=== PATIENT | male | born 1965 | race Caucasian/White ===

== ENCOUNTER 2020-11-28 08:42 | Day surgery (SDC) | payer OTHER, SELFPAY ==
[2020-11-28] VITALS (7 sets, daily range): BP systolic 97–112; BP diastolic 74–81; PULSE 73–80; RESP 14–18; TEMP 36.1–36.6; O2SAT 100; BMI 17.4
--- NOTE | 2020-11-28 | IMM_PTH ---
PATIENT: JC DUNAWAY LOC: EN U#:[id number] AGE/SX: 55/M ROOM: RE11/28/[address]: Dr. Julio Hanson DO : 1965 BED: DIS: 11/28/2020 SPEC #: [id number] RECD: 11/29/20 13:19 STATUS: PRANAV REQ #: [id number] QI: 11/28/20 00:[address]: Julio Hanson DEPT: IMMUNOHISTOCHEMISTRY RECD BY: Nicky Zafar ENTERED: 11/29/20 13:22 SP TYPE: IMMUNO OTHR DR: Dr. Sage Tyalor DO Tissues: D - Sigmoid colon biopsy Procedures: MLH-1 (add) MSH6 (add) Anti-PMS2 (add) GONZALEZ-2 (add) KI-67 (add) P53 (add) MSH2 (initial) PHYSICIAN & INSTITUTION [place] [id number] SPECIMEN INFORMATION: Tissue Source: D ? Sigmoid mass biopsy Clinical Info: Ulcerative colitis, weight loss Specimen Number: [id number] CPT code: 46187, 57458 x6 METHODOLOGY: Deparaffinized sections of prefer/formalin-fixed tissue or PAP/DQ stained slides are incubated with monoclonal/polyclonal antibodies/oligonucleotide probes. Localization is made via biotin free immunoperoxidase method. Appropriate controls are performed and reacted as expected. Results on target cell population are indicated in the following table: RESULTS: ANTIBODY / CLONE RESULT Block D MLH-1 (M1) positive MSH2 (25D12) positive MSH6 (44) positive PMS2 (ERT2521) positive Ki-67 (30-9) positive (75%) P53 (DO-7) positive GNOZALEZ-2 (SP21) positive These tests were developed and their performance characteristics determined by [facility]. They may not have been cleared or approved by the U.S. Food and Drug Administration. The FDA has determined that such clearance or approval is not necessary. The above immunohistochemical/dualISH markers are ordered and reviewed by the Pathologist. INTERPRETATION: D. Sigmoid mass, biopsy: Adenocarcinoma. Result of Microsatellite Instability Study: Negative (no loss of mismatch protein; no microsatellite instability detected). AM:robbie 12/03/2020
[2020-11-28] MEDS: Lactated Ringers 1,000 ML 100 ML IV (09:25)
--- NOTE | 2020-11-28 09:45 | COLBX_PTH ---
PATIENT: JC DUNAWAY LOC: EN U#:[id number] AGE/SX: 55/M ROOM: RE11/28/[address]: Dr. Julio Hanson DO : 1965 BED: DIS: 11/28/2020 SPEC #: [id number] RECD: 11/28/20 11:32 STATUS: PRANAV JACQUELINE #: [id number] QI: 11/28/20 09:[address]: Julio Hanson DEPT: SURGICAL PATHOLOGY RECD BY: Radha Baca ENTERED: 11/28/20 12:22 SP TYPE: COLON BX OTHR DR: Dr. Sage Taylor DO Tissues: A - Duodenum, NOS B - Esophagus, NOS C - COLON BIOPSY D - Sigmoid colon biopsy E - Rectum, NOS Procedures: Special Stain Group II Surgery Specimen Level IV Alcian Blue/PAS (control) HEADER OPERATION: Colonoscopy, EGD ([facility]) PRE-OP DIAGNOSIS: Ulcerative colitis, weight loss TISSUE SUBMITTED: A ? Duodenum biopsy, B ? Distal esophagus biopsy, C ? Random colon biopsy, D ? Sigmoid mass biopsy, E ? Biopsy rectosigmoid thickening MICROSCOPIC DIAGNOSIS A. Duodenum, biopsy: Mild Samy?s gland hyperplasia. B. Distal esophagus, biopsy: Gastroesophageal junctional mucosa with chronic inflammation. No evidence of goblet cell metaplasia. See comment. C. Colon, random biopsy: Chronic active colitis pattern of injury with low and focal high-grade glandular dysplasia. D. Sigmoid colon mass, biopsy: Invasive adenocarcinoma. See comment. E. Rectosigmoid colon, biopsy: Tubular adenoma. AM:robbie 11/29/2020 COMMENT B. Alcian blue/PAS stain with matched control supports the above diagnosis. C. Immunohistochemistry ([id number]) for microsatellite instability (mismatch repair of protein) will be performed and the results will be reported separately. Case has been reviewed in consultation with Dr. Looney who concurs with the above diagnosis. IDC:SHANDA MICROSCOPIC DESCRIPTION Slides are reviewed. GROSS DESCRIPTION A - Received in fixative is one container labeled with the patient's name and designated duodenum biopsy. The specimen consists of multiple irregular fragments of light swanson soft tissue that in aggregate measure 1 x 0.5 x 0.1 cm. The specimen is totally submitted in one cassette. B - Received in fixative is one container labeled with the patient's name and designated distal esophagus biopsy. The specimen consists of two irregular fragments of light swanson soft tissue that in aggregate measure 0.8 x 0.3 x 0.1 cm. The specimen is totally submitted in one cassette. C - Received in fixative is one container labeled with the patient's name and designated random colon biopsy. The specimen consists of multiple irregular fragments of light swanson soft tissue that in aggregate measure 1 x 1 x 0.1 cm. The specimen is totally submitted in one cassette. D - Received in fixative is one container labeled with the patient's name and designated sigmoid mass biopsy. The specimen consists of multiple irregular fragments of light swanson soft tissue that in aggregate measure 2 x 0.6 x 0.1 cm. The specimen is totally submitted in one cassette. E - Received in fixative is one container labeled with the patient's name and designated rectosigmoid biopsy. The specimen consists of one irregular fragment of light swanson soft tissue that measures 0.3 x 0.3 x 0.1 cm. The specimen is totally submitted in one cassette. / AM:robbie 11/28/20 TC:0 CPT: 12964 x5, 80699
--- NOTE | 2020-11-28 09:53 | HP.PCM_ITS ---
History and Physical Date of Admission: 11/28/20 [facility] [id number] [place] [address] OFFICE VISITDate of Service: 11/21/20 MR#:[id number]:[id number]: JC DUNAWAYRep #:[id number]:[id number] Provider:Julio Hanson DOAge/Sex: 55/M [place] [place] Intake Vital Signs 11/21/20 11:17 Height 5 ft 6 in Weight: 109 lb 2 oz BMI 17.6 Intake Visit Reasons: UC Is patient in pain?: No Allergies No Known Allergies Allergy (Unverified 11/21/20 11:14) Medications folic acid 1 mg tablet 1 mg PO DAILY #30 tab 11/21/20 [Rx Confirmed 11/21/20] polyethylene glycol 3350 17 gram/dose oral powder 17 g PO Q10M #238 g 11/21/20 [Rx Confirmed 11/21/20] sulfasalazine 500 mg tablet 1 g PO Q6H tab 11/21/20 [History Confirmed 11/21/20] sulfasalazine 500 mg tablet,delayed release 1 g PO BID #60 tab 11/21/20 [Rx Confirmed 11/21/20] PFSH Medical History (Updated 11/21/20 @ 11:[address] Kim Friend, ) Ulcerative colitis Weight loss HPI HPI Details: JC DUNAWAY, is a 55 M who presents to the office today for Ulcerative diagnosis diagnosed around 1981. Takes Sulfasalazine 1gram BID and finds this helpful, ran out of the medication a couple weeks ago. Has been having periods of diarrhea with occasional episodes of small amounts of blood that he feels is triggered by stress. States the pills help and this will resolve spontaneously. Last colonoscopy early 1999 with no EGD performed. His is concerned because he has been having increasing weight loss. He has lost around 45 to 50 pounds over the last 6 months. He finds that when he does remember to take the sulfasalazine it helps his diarrhea. However he has been having more bleeding recently. He does complain of tenesmus and urgency. He denies any nausea. He denies any chest pain or shortness of breath. He does not take any other medicine and does not take folic acid. He has no extraintestinal manifest lesions of ulcerative colitis that he knows of such as no trouble seeing, no rash, arthritis or arthralgia and he has never been told that he had any liver function abnormalities. ROS Const Constitutional: No anorexia, fatigue, fever(s), weight change or sleep problems Eyes Eyes: No change in vision ENT ENT: No abnormal hearing, difficulty swallowing, mouth lesions, tongue swelling or throat swelling Resp Respiratory: No cough or shortness of breath Cardio Cardiology: No chest pain at rest, chest pain with exertion, shortness of breath or dyspnea on exertion Gastro GI: Positive for diarrhea; No difficulty swallowing Genitourinary Male: No difficulty urinating or burning urination Musc Musculoskeletal: No joint pain, joint swelling, muscle weakness or decreased muscle mass Skin Skin: No hair loss in leg, yellowing of the eye, itchy eyes, rash, skin ulcer or skin swelling Neuro Neurology: No abnormal hearing, abnormal movements, confusion, unsteady gait/balance or memory loss Psych Psychiatric: No anxiety, No confusion and No memory loss Endo Endocrine: No fatigue or weight change Aller/Imm Allergy/Immunologic: No itchy eyes, throat swelling or tongue swelling Rodrick/Lymp Hematologic/Lymphatic: No easy bleeding, easy bruising or enlarged lymph nodes Exam Const General: cooperative and comfortable Nutritional Appearance: average body habitus and well nourished [facility] Head: normal to inspection Ears: hearing grossly normal bilaterally Nose: external nose normal Face and sinus: normal facial exam Mouth: oral mucosae normal Throat: posterior oropharynx normal Eyes General: appearance normal, both eyes and all related structures Neck Neck: normal visual inspection Chest Chest palpation & inspection: normal inspection of the chest and normal palpation of entire chest wall Resp Effort & Inspection: normal respiratory effort Auscultation: Bilateral: Clear to Auscultation Cardio Palpation: normal PMI Rate: regular rate Rhythm: regular rhythm GI Inspection: normal to inspection Auscultation: normal bowel sounds Percussion: normal to percussion Palpation: no hepatosplenomegaly Skin General: no rashes or lesions noted Neuro General: patient alert Extrem General: normal to inspection Psych Affect: normal affect Assessment and Plan Assessment and Plan (1) Ulcerative colitis: Status: Acute Plan - Dr. Kim Friend, DO: He will undergo colonoscopy all way to the terminal ileum. We will do random biopsies in the terminal ileum and throughout the colon. I will continue his sulfasalazine 1 g twice a day. I will also add folic acid as sulfasalazine can deplete the folic acid. We will also check vitamin B12 levels as I suspect that may be low also due to his weight loss. At this time he is not having any neuropathy and is not having any problems with his gait. (2) Weight loss: Status: Acute Plan - Dr. Kim Friend, DO: He will also undergo upper endoscopy to see if there is anything abnormal in his stomach or proximal small bowel that would lead to him to lose weight. We will do biopsies in the duodenum for celiac sprue and will also see if he has any signs of inflammatory bowel disease in his proximal small bowel or stomach. Plan Details Other Medications: New: polyethylene glycol 3350 (Miralax) 17 grams PO Q10M 238 grams 0RF folic acid 1 mg PO DAILY 30 tabs 2RF sulfasalazine 1 g (2 x 500 mg) PO BID 60 tabs 0RF This is an updated H&P from when the patient was seen in the office. Nothing is changed since he was seen in office.
--- NOTE | 2020-11-28 10:45 | OP.EGD_ITS ---
Patient Name: Mohamud Malik Procedure Date: 11/28/2020 9:56 AM Date of : 1965 Age: 55 Procedure: Upper GI endoscopy Indications: Epigastric abdominal pain Providers: Julio Hanson DO Medicines: Propofol per Anesthesia Patient Profile: This is a 55 year old male. Refer to note in patient chart for documentation of history and physical. Patient has symptoms of chronic epigastric abdominal pain. The symptoms first began April. He is status post colonoscopy (normal) in the distant past. Complications: No immediate complications. Procedure: Pre-Anesthesia Assessment: - Prior to the procedure, a History and Physical was performed, and patient medications and allergies were reviewed. The patient is competent. The risks and benefits of the procedure and the sedation options and risks were discussed with the patient. All questions were answered and informed consent was obtained. Patient identification and proposed procedure were verified by the physician in the pre-procedure area. Mental Status Examination: alert and oriented. Airway Examination: normal oropharyngeal airway and neck mobility. Respiratory Examination: clear to auscultation. CV Examination: normal. Prophylactic Antibiotics: The patient does not require prophylactic antibiotics. Prior Anticoagulants: The patient has taken no previous anticoagulant or antiplatelet agents. ASA Grade Assessment: II - A patient with mild systemic disease. After reviewing the risks and benefits, the patient was deemed in satisfactory condition to undergo the procedure. The anesthesia plan was to use moderate sedation / analgesia (conscious sedation). Immediately prior to administration of medications, the patient was re-assessed for adequacy to receive sedatives. The heart rate, respiratory rate, oxygen saturations, blood pressure, adequacy of pulmonary ventilation, and response to care were monitored throughout the procedure. The physical status of the patient was re-assessed after the procedure. After obtaining informed consent, the endoscope was passed under direct vision. Throughout the procedure, the patient's blood pressure, pulse, and oxygen saturations were monitored continuously. The Endoscope was introduced through the mouth, and advanced to the second part of duodenum. The upper GI endoscopy was accomplished without difficulty. The patient tolerated the procedure well. Scope In: 10:02:22 AM Scope Out: 10:06:17 AM Total Procedure Duration Time 0 hours 3 minutes 55 seconds Findings: LA Grade A (one or more mucosal breaks less than 5 mm, not extending between tops of 2 mucosal folds) esophagitis with no bleeding was found. Biopsies were taken with a cold forceps for histology. Verification of patient identification for the specimen was done. Estimated blood loss was minimal. The entire examined stomach was normal. Biopsies were taken with a cold forceps for histology. Verification of patient identification for the specimen was done. Estimated blood loss was minimal. Scattered mild inflammation characterized by congestion (edema) was found in the first portion of the duodenum. Biopsies were taken with a cold forceps for histology. Verification of patient identification for the specimen was done. Estimated blood loss was minimal. Impression: - LA Grade A reflux esophagitis. Biopsied. - Normal stomach. Biopsied. - Duodenitis. Biopsied. - LA Grade A reflux esophagitis. Biopsied. - Normal stomach. - Duodenitis. Biopsied. Recommendation: - Discharge patient to home. - Resume previous diet. - Continue present medications. - Await pathology results. - Repeat upper endoscopy in 3 months for surveillance based on pathology results. - Return to GI office in 2 weeks. Procedure Code(s): --- Professional --- 43160, Esophagogastroduodenoscopy, flexible, transoral; with biopsy, single or multiple CPT copyright 2017 [employer]. All rights reserved. The codes documented in this report are preliminary and upon invoice coder review may be revised to meet current compliance requirements. Julio Hanson DO 11/28/2020 10:45:32 AM This report has been signed electronically. Number of Addenda: 1 Note Initiated On: 11/28/2020 9:56 AM Addendum Number: 1 Addendum Date: 10/31/2021 4:11:37 PM MAC was used instead of moderate sedation for this patient. Julio Hanson DO 10/31/2021 4:11:44 PM This report has been signed electronically.
--- NOTE | 2020-11-28 10:45 | OP.CCLET_ITS ---
10/31/2021 Sage Taylor Re : Upper GI endoscopy procedure for Mohamud Malik Dear Claudia This procedure was performed on Saturday, November 28, 2020. My impressions and recommendations are as follows: Impressions : - LA Grade A reflux esophagitis. Biopsied. - Normal stomach. Biopsied. - Duodenitis. Biopsied. - LA Grade A reflux esophagitis. Biopsied. - Normal stomach. - Duodenitis. Biopsied. Recommendations : - Discharge patient to home. - Resume previous diet. - Continue present medications. - Await pathology results. - Repeat upper endoscopy in 3 months for surveillance based on pathology results. - Return to GI office in 2 weeks. My findings are described in the full procedure note, which is enclosed. If I can be of further assistance, please feel free to contact me at . Sincerely, Julio Hanson, 11/28/2020 10:45:32 AM This report has been signed electronically.
--- NOTE | 2020-11-28 10:54 | OP.COLON_ITS ---
Patient Name: Mohamud Malik Procedure Date: 11/28/2020 10:06 AM Date of : 1965 Age: 55 Procedure: Colonoscopy Indications: Left-sided chronic ulcerative colitis Providers: Julio Hanson DO Medicines: Propofol per Anesthesia Patient Profile: This is a 55 year old male. Refer to note in patient chart for documentation of history and physical. Patient has symptoms of chronic epigastric abdominal pain. The symptoms first began April. He is status post colonoscopy (normal) in the distant past. He is status post segmental resection of the ascending colon in the distant past. Last Colonoscopy: 10 years ago. Complications: No immediate complications. Procedure: Pre-Anesthesia Assessment: - Prior to the procedure, a History and Physical was performed, and patient medications and allergies were reviewed. The patient is competent. The risks and benefits of the procedure and the sedation options and risks were discussed with the patient. All questions were answered and informed consent was obtained. Patient identification and proposed procedure were verified by the physician in the pre-procedure area. Mental Status Examination: alert and oriented. Airway Examination: normal oropharyngeal airway and neck mobility. Respiratory Examination: clear to auscultation. CV Examination: normal. Prophylactic Antibiotics: The patient does not require prophylactic antibiotics. Prior Anticoagulants: The patient has taken no previous anticoagulant or antiplatelet agents. ASA Grade Assessment: II - A patient with mild systemic disease. After reviewing the risks and benefits, the patient was deemed in satisfactory condition to undergo the procedure. The anesthesia plan was to use moderate sedation / analgesia (conscious sedation). Immediately prior to administration of medications, the patient was re-assessed for adequacy to receive sedatives. The heart rate, respiratory rate, oxygen saturations, blood pressure, adequacy of pulmonary ventilation, and response to care were monitored throughout the procedure. The physical status of the patient was re-assessed after the procedure. - Prior to the procedure, a History and Physical was performed, and patient medications and allergies were reviewed. The patient is competent. The risks and benefits of the procedure and the sedation options and risks were discussed with the patient. All questions were answered and informed consent was obtained. Patient identification and proposed procedure were verified by the physician in the pre-procedure area. Mental Status Examination: alert and oriented. Airway Examination: normal oropharyngeal airway and neck mobility. Respiratory Examination: clear to auscultation. CV Examination: normal. Prophylactic Antibiotics: The patient does not require prophylactic antibiotics. Prior Anticoagulants: The patient has taken no previous anticoagulant or antiplatelet agents. ASA Grade Assessment: II - A patient with mild systemic disease. After reviewing the risks and benefits, the patient was deemed in satisfactory condition to undergo the procedure. The anesthesia plan was to use moderate sedation / analgesia (conscious sedation). Immediately prior to administration of medications, the patient was re-assessed for adequacy to receive sedatives. The heart rate, respiratory rate, oxygen saturations, blood pressure, adequacy of pulmonary ventilation, and response to care were monitored throughout the procedure. The physical status of the patient was re-assessed after the procedure. After I obtained informed consent, the scope was passed under direct vision. Throughout the procedure, the patient's blood pressure, pulse, and oxygen saturations were monitored continuously. The pediatric colonoscope was introduced through the anus and advanced to the ileocolonic anastomosis. The colonoscopy was performed without difficulty. The patient tolerated the procedure well. The quality of the bowel preparation was good. Scope In: 10:09:27 AM Scope Withdrawal Time 0 hours 9 minutes 32 seconds Scope Out: 10:30:20 AM Total Procedure Duration Time 0 hours 20 minutes 53 seconds Findings: The perianal and digital rectal examinations were normal. Inflammation characterized by erosions, erythema, linear erosions, loss of vascularity, mucus, scarring and deep ulcerations was found in a continuous and circumferential pattern from the anus to the hepatic flexure. No sites were spared. This was severe, and when compared to previous examinations, the findings are worsened. Biopsies were taken with a cold forceps for histology. Verification of patient identification for the specimen was done. Estimated blood loss was minimal. A frond-like/villous non-obstructing large mass was found in the distal descending colon. The mass was partially circumferential (involving two-thirds of the lumen circumference). The mass measured one cm in length. No bleeding was present. This was biopsied with a cold forceps for histology. Area was tattooed with an injection of 5 mL of Pippa ink. The terminal ileum appeared normal. Impression: - Pancolitis ulcerative colitis. Inflammation was found from the anus to the hepatic flexure. This was severe, worsened compared to previous examinations. Biopsied. - Rule out malignancy, tumor in the distal descending colon. Biopsied. Tattooed. - The examined portion of the ileum was normal. - Diffuse severe inflammation was found in the rectum secondary to pancolitis. Biopsied. - Ileal anastomosis visualized. Recommendation: - Discharge patient to home. - Resume previous diet. - Return to my office in 2 weeks. - Continue present medications. - Repeat colonoscopy in 3 months for surveillance based on pathology results. Procedure Code(s): --- Professional --- 07974, Colonoscopy, flexible; with biopsy, single or multiple 50484, Colonoscopy, flexible; with directed submucosal injection(s), any substance CPT copyright 2017 [employer]. All rights reserved. The codes documented in this report are preliminary and upon artist consultant review may be revised to meet current compliance requirements. Julio Hanson DO 11/28/2020 10:53:39 AM This report has been signed electronically. Number of Addenda: 1 Note Initiated On: 11/28/2020 10:06 AM Addendum Number: 1 Addendum Date: 10/31/2021 4:11:55 PM MAC was used instead of moderate sedation for this patient. Julio Hanson DO 10/31/2021 4:12:00 PM This report has been signed electronically.
--- NOTE | 2020-11-28 10:54 | OP.CCLET_ITS ---
10/31/2021 Sage Taylor Re : Colonoscopy procedure for Mohamud Malik Dear Claudia This procedure was performed on Saturday, November 28, 2020. My impressions and recommendations are as follows: Impressions : - Pancolitis ulcerative colitis. Inflammation was found from the anus to the hepatic flexure. This was severe, worsened compared to previous examinations. Biopsied. - Rule out malignancy, tumor in the distal descending colon. Biopsied. Tattooed. - The examined portion of the ileum was normal. - Diffuse severe inflammation was found in the rectum secondary to pancolitis. Biopsied. - Ileal anastomosis visualized. Recommendations : - Discharge patient to home. - Resume previous diet. - Return to my office in 2 weeks. - Continue present medications. - Repeat colonoscopy in 3 months for surveillance based on pathology results. My findings are described in the full procedure note, which is enclosed. If I can be of further assistance, please feel free to contact me at . Sincerely, Julio Hanson, 11/28/2020 10:53:39 AM This report has been signed electronically.
== END 2020-11-28 11:27 | disposition home or self-care (01) ==
LOC: EN 08:55 → AC 09:25
PROVIDERS: PCP Family Medicine; Referring Provider Family Medicine; Visit Provider Internal Medicine Gastroenterology
PROC: 0DJD8ZZ Inspection of Lower Intestinal Tract, Via Natural or Artificial Opening Endoscopic (ICD-10-PCS; CPT 45378; principal; 2020-11-28 09:40)
DX: K21.00 Gastro-esophageal reflux disease with esophagitis, without bleeding (principal); K51.00 Ulcerative (chronic) pancolitis without complications; C18.7 Malignant neoplasm of sigmoid colon; D12.7 Benign neoplasm of rectosigmoid junction; R63.4 Abnormal weight loss
CPT/HCPCS: 43239; 45380; 45381; 88305; 88313; 88341; 88342; J7120; A4648; J2405

== ENCOUNTER → 2020-12-07 10:56 | Outpatient (CLI) | payer OTHER, SELFPAY ==
[2020-12-07 11:35] LABS: Absolute Lymphocyte Count 0.89 X10^3/uL (0.83-4.51); Absolute Neutrophil Count 7.7 X10^3/uL (2.0-7.7); Basophil# 0.08 X10^3/uL; Basophil% 0.8 % (0-1); Eosinophils% 1.9 % (0-5); Hematocrit 34.5 % (40-54); Lymphocyte # 0.89 X10^3/ul (0.83-4.51); Lymphocyte % 8.6 % (19-41); Mean Corp Hgb Conc 31.9 g/dL (32-36); Mean Corpuscular Hgb 27.4 pg (27.0-32.0); Mean Platelet Vol. 9.5 fl (6.2-12.0); Monocyte# 1.35 X10^3/uL; Monocyte% 13.1 % (0-10); NRBC Flagged by Analyzer 0 % (0-5); Neutrophil # 7.74 X10^3/uL (2.7-7.7); Platelet Count 682 K/mm3 (150-450); RBC Distribution Width CV 14.8 % (11.6-14.6); RBC Distribution Width SD 46.5 fl (35.1-43.9); Red Blood Count 4.01 M/mm3 (4.6-6.2); White Blood Count 10.3 K/mm3 (4.4-11.0)
[2020-12-07 12:09] LABS: ALB/GLOB Ratio 0.4 RATIO (0.9-2.4); AST(SGOT) 54 U/L (15-37); Alanine Aminotransfer ALT/SGPT 38 U/L (16-61); Albumin, Serum 2.2 g/dL (3.2-5.0); Alkaline Phosphatase 581 U/L (45-117); Anion Gap 6 (5-15); BUN 11 mg/dL (7-18); BUN/Creat Ratio 14.3 RATIO (10-20); Calcium,Total 8.4 mg/dL (8.5-10.1); Chloride 104 mmol/L (98-107); Creatinine, Serum 0.77 mg/dL (0.70-1.30); EST Glomerular Filtration Rate 111 mL/min (>60); Est Glom Filt Rate - Afr Amer 134 mL/min (>60); Globulin 5.6 g/dL (2.2-4.2); Glucose 63 mg/dL (74-106); Potassium 3.9 mmol/L (3.5-5.1); Protein, Total 7.8 g/dL (6.4-8.2); Sodium Level 135 mmol/L (136-145)
[2020-12-08 11:31] LABS: Carcinoembryonic Antigen 2.4 ng/mL (0.0-4.7)
== END ==
PROVIDERS: PCP Family Medicine; Referring Provider Internal Medicine Gastroenterology; Visit Provider Internal Medicine Gastroenterology
DX: C18.9 Malignant neoplasm of colon, unspecified (principal); K51.90 Ulcerative colitis, unspecified, without complications
CPT/HCPCS: 36415; 80053; 82378; 85025

== ENCOUNTER → 2020-12-28 07:25 | Outpatient (CLI) | payer OTHER, SELFPAY ==
--- NOTE | 2020-12-28 07:31 | CT_ITS ---
STUDY: CT CHEST, ABDOMEN T PELVIS WITH CONTRAST REASON FOR EXAM: Male, 55 years old. Newly diagnosed colon cancer. Weight loss. History of ulcerative colitis. RADIATION DOSAGE (If Supplied By Facility): CTDIvol = ( 7.66 ) mGy, DLP = ( 499.71 ) mGycm TECHNIQUE: Transaxial imaging was performed following intravenous administration of Oral and amp; IV Readi-CAT and amp; 100mL Isovue-300. Individualized dose optimization techniques were used for this CT. COMPARISON: No relevant priors. FINDINGS: CHEST Mild degree of scarring at the right lung apex. Mild degree of emphysematous changes. There is no demonstrated pleural abnormality. Normal heart and pericardium. Normal mediastinum. Calcified right hilar lymph nodes. Normal unenhanced pulmonary arteries. Normal aorta arch and descending thoracic aorta. There are mild degenerative changes of the thoracic spine. ABDOMEN Normal liver. Normal gallbladder and extrahepatic biliary system. Normal spleen. Normal pancreas. Normal bilateral adrenal glands. Normal right kidney. Normal left kidney. There is a small hiatal hernia. Normal small intestine. There is diffuse circumferential wall thickening of the colon in keeping with the patient''s history of ulcerative colitis. Inflammatory changes are seen in the rectosigmoid colon. There is evidence of circumferential wall thickening with evidence of a mass in the region of the cecum. This extends into the proximal portion of the descending colon. Patient is known to have a neoplasm at that site. The appendix is visualized and appears normal. Normal abdominal aorta. Normal inferior vena cava. Normal retroperitoneum. Normal abdominal wall. There are mild degenerative changes of the visualized lumbar spine. There is a 9 mm lucency in the anterior left aspect of the L2 vertebrae. Mild sclerotic margin is seen most likely representing an incidental finding. PELVIS Normal urinary bladder. Normal visualized pelvic arteries. Normal abdominal wall. The patient is status post intramedullary xena fixation of the proximal left femur. CT/CT Chest, Abd, Pel w/Contrast IMPRESSION: Diffuse circumferential wall thickening of the colon with the patient''s history of ulcerative colitis. Masslike lesion in the cecum and proximal ascending colon. The patient is known to have a neoplastic process at that site. Electronically Signed: Bk Berkowitz MD at 12:55 EDT , Service support ,
== END ==
PROVIDERS: PCP Family Medicine; Referring Provider Internal Medicine Gastroenterology; Visit Provider Internal Medicine Gastroenterology
DX: C18.7 Malignant neoplasm of sigmoid colon (principal)
CPT/HCPCS: 71260; 74177; Q9967

== ENCOUNTER → 2021-02-08 09:03 | Outpatient (CLI) | payer OTHER, SELFPAY | PROVIDERS: PCP Family Medicine; Referring Provider Colon & Rectal Surgery; Visit Provider Colon & Rectal Surgery | DX: C18.7 Malignant neoplasm of sigmoid colon (principal) | CPT/HCPCS: 87635; C9803; U0005; U0003 ==

== ENCOUNTER 2021-02-18 07:08 | Emergency (ER) | payer OTHER, SELFPAY ==
[2021-02-18 07:09] VITALS: BP 94/55; PULSE 101; RESP 16; TEMP 36.9; O2SAT 99; BMI 17.3
--- NOTE | 2021-02-18 07:19 | CT_ITS ---
STUDY: CT ABDOMEN AND PELVIS WITH CONTRAST REASON FOR EXAM: Male, 55 years old. Abdominal pain -- IV PO Contrast. Lower abdominal pain with nausea. Prior ileostomy dated 02/12/2021. History of ulcerative colitis and colon cancer. RADIATION DOSAGE (If Supplied By Facility): CTDIvol = ( 8.02 ) mGy, DLP = ( 286.19 ) mGycm TECHNIQUE: Transaxial images were obtained from the dome of the diaphragm to the symphysis pubis without oral contrast. Oral and amp; IV Gastrografin and amp; 100mL Isovue-370 was administered. Sagittal and coronal images were reconstructed. Individualized dose optimization techniques were used for this CT. COMPARISON: None. FINDINGS: There is a mild degree of increased markings at the lung bases suggestive of bibasilar The visualized portions of the heart are within normal limits. Mild degree of central intrahepatic biliary ductal dilatation. The gallbladder is distended. No gallstones are seen. Normal spleen. Normal pancreas. Normal bilateral adrenal glands. Normal right kidney. Normal left kidney. Normal visualized stomach. Mildly dilated small bowel loops. An ileostomy is seen in the anterior right lower quadrant. Subcutaneous emphysema is seen overlying the right anterior and lateral abdominal wall from the mid level down to the region of the pelvis. This most likely is postsurgical in nature. Surgical anastomosis seen in the region of the rectum. A small amount of fluid is also seen in the right paracolic gutter. Fluid is seen in the pelvis. The patient is status post colectomy. Normal abdominal aorta. Normal inferior vena cava. Normal retroperitoneum. Normal urinary bladder. Normal abdominal wall. Prior ORIF of the proximal left femur. CT/Abdomen/Pelvis WITH Contrast IMPRESSION: Status post colectomy and ileostomy in the right lower quadrant. Subcutaneous emphysema is seen along the anterior abdominal wall at the site of the surgery extending down to the region of the lower abdomen and pelvis. Mild degree of intrahepatic biliary ductal dilatation. Distended gallbladder. Ascites. Surgical anastomosis is seen in the lower pelvis at the site of the rectum. Electronically Signed: Bk Berkowitz MD at 9:49 EST , Service support ,
--- NOTE | 2021-02-18 07:20 | ED.VIS.GI ---
HPI HPI - GI History of Present Illness Chief Complaint: Abd Pain Narrative Narrative: 55-year-old male presenting with abdominal pain. Patient has a history of ulcerative colitis, anemia, colon cancer and recently underwent surgery at [facility] for a total colectomy due to the above-noted problems. Patient states this was on Thursday of last week. Patient states that he had been eating and drinking okay and he has had ostomy output up until yesterday when he did not have a lot of output. He states he did not eat or drink much yesterday. His ostomy output has increased since last night. Patient states he is experiencing pain around the ostomy site. He states that he has Tylenol, ibuprofen, oxycodone at home and tried taking oxycodone but vomited this up because he was nauseous. He states he has nausea medicine at home but he is not recall the last time he tried taking it. Patient has not had a fever. He has not seen jesse bloody stools in his colostomy bag. PFSH PFS Medical History History of colon cancer Hx of fracture of left hip Injury of head and neck Non-smoker Ulcerative colitis Weight loss Home Medications folic acid 1 mg tablet 1 mg PO DAILY #30 tab 11/21/20 [Rx Last Taken Unknown] sulfasalazine 500 mg tablet 0.5 g PO BID #60 tab 12/12/20 [Rx Last Taken Unknown] ondansetron 4 mg PO Q8H PRN PRN #14 tab 02/18/21 [Rx Last Taken Unknown] Allergy/AdvReac Type Severity Reaction Status Date / Time No Known Allergies Allergy Verified 12/31/20 11:13 Surgical History History of colon resection History of ileostomy Hx of colonoscopy Social History household members: spouse Smoking Status: Never smoker second hand exposure: No details: very rarely substance use type: does not use cruz/mormonism: [employer] seatbelt use: always do you feel safe at home: Yes ROS ROS ED Constitutional Constitutional ED: Denies chills or fever(s) ENT ENT ED: Denies rhinorrhea or sore throat Cardiovascular Cardiovascular: Denies chest pain or palpitations Respiratory/Chest Respiratory/Chest: Denies cough or dyspnea Gastrointestinal Gastrointestinal: Reports abdominal pain, nausea and vomiting Genitourinary Genitourinary ED: Denies dysuria or hematuria Musculoskeletal Musculoskeletal: Denies arthralgias or myalgias Integumentary Denies rash Neurologic Neurologic: Denies headache(s) or paresthesias Psychiatric Psychiatric: Denies anxiety or depression EXAM Physical Exam Const Vital Signs: 02/18/21 07:09 02/18/21 11:12 Temperature 98.4 F 98.3 F Temperature Source Temporal Pulse Rate 101 H 86 Respiratory Rate 16 16 Blood Pressure 94/55 L 136/86 H Blood Pressure Mean 68 Pulse Ox 99 98 Oxygen Delivery Method Room Air Positive cachectic General Appearance ED: cachectic and NAD Nutritional Appearance: cachectic HEENT Reports dry mucous membranes normocephalic and atraumatic Mouth ED: Yes dry mucous membranes Mouth: dry mucous membranes Eyes PERRL and EOMs intact bilaterally General Eye ED: Negative for pale conjunctiva or scleral icterus Neck No no lymphadenopathy and No supple Resp normal respiratory effort and clear to auscultation bilaterally Cardio regular rate and regular rhythm GI GI Narrative: Tenderness to palpation around ostomy site to the left. Abdomen is nonperitoneal. There is also some epigastric discomfort on examination. Ostomy bag is full of greenish liquid. Neuro Sensorium / Orientation: alert, oriented to person, oriented to place and oriented to time Psych mental status grossly normal and thought process normal Skin Rashes: no rashes MDM MDM MDM Narrative Medical decision making narrative: Patient resting be evaluated postoperatively due to abdominal pain status post total colectomy. I did evaluate the patient with lab work and his white count is 13.7 which is what it was few days ago on an outpatient basis and this has not changed. Hemoglobin was 9.2 at that time as well and it is again the same here. Renal function and electrolytes are normal with slight prerenal azotemia. Patient initially typed and screened due to his history of anemia and GI bleed but I do not believe he needs to be emergently transfused. Patient pain was treated with morphine and Zofran. I obtained a CT of the abdomen pelvis with p.o. and IV contrast which did not show anything acute. The radiologist notes postsurgical changes only. Patient feeling improved. I was able to determine he was not prescribed any nausea medicine and I will prescribe this. Is counseled to follow-up with his surgeon as needed. Impression: 1. Postop abdominal pain status post total colectomy 2. History of GI bleed 3. Nausea/vomiting Lab Data Attestation: I reviewed the patient's lab results. Labs: Laboratory Results - last 24 hr 02/18/21 02/18/21 02/18/21 07:16 07:16 07:35 WBC 13.7 H RBC 3.64 L Hgb 9.2 L Hct 29.3 L MCV 80.5 MCH 25.3 L MCHC 31.4 L RDW Std Deviation 52.3 H RDW Coeff of Beatrice 18.2 H Plt Count 625 H MPV 10.1 Immature Gran % (Auto) 0.600 Neut % (Auto) 92.5 H Lymph % (Auto) 1.6 L [place] % (Auto) 5.0 Eos % (Auto) 0.0 Baso % (Auto) 0.3 Absolute Neuts (auto) 12.6 H Absolute Lymphs (auto) 0.22 L Nucleated RBC % 0 Differential Comment COMMENT Sodium 139 Potassium 4.8 Chloride 106 Carbon Dioxide 28.0 Anion Gap 5 BUN 23 H Creatinine 0.92 Estim Creat Clear Calc 61.76 Est GFR (MDRD) Af Amer 109 Est GFR (MDRD) Non-Af 90 BUN/Creatinine Ratio 25.0 H Glucose 118 H Calcium 8.4 L Total Bilirubin 0.90 AST 39 H ALT 55 Alkaline Phosphatase 723 H Total Protein 6.6 Albumin 2.0 L Globulin 4.6 H Albumin/Globulin Ratio 0.4 L Lipase 70 L Blood Type O POSITIVE Antibody Screen NEGATIVE Radiography Diagnostic Testing: Clinical Impression(s) from Imaging Studies Abdomen/Pelvis CT 02/18/21 07:19 IMPRESSION: Status post colectomy and ileostomy in the right lower quadrant. Subcutaneous emphysema is seen along the anterior abdominal wall at the site of the surgery extending down to the region of the lower abdomen and pelvis. Mild degree of intrahepatic biliary ductal dilatation. Distended gallbladder. Ascites. Surgical anastomosis is seen in the lower pelvis at the site of the rectum. Electronically Signed: Bk Berkowitz MD at 9:49 EST , Service support , Discharge Plan Triage Chief Complaint: Abd Pain ED Provider: Jabier De Jesus Dx/Rx/DC Orders Instructions: ED Post Op Wound Check, Pain Prescriptions: New ondansetron 4 mg tablet,disintegrating 4 mg PO Q8H PRN PRN (Reason: Nausea) Qty: 14 RF: 0 No Action folic acid 1 mg tablet 1 mg PO DAILY Qty: 30 RF: 2 sulfasalazine 500 mg tablet 0.5 g PO BID Qty: 60 RF: 1 Primary Care Provider: Sage Taylor Referrals: Sage Taylor DO [Primary Care Provider] - Disposition Disposition: Home, Self Care Discharge Date/Time: 02/18/21 11:18
[2021-02-18 07:27] LABS: Absolute Lymphocyte Count 0.22 X10^3/uL (0.83-4.51); Absolute Neutrophil Count 12.6 X10^3/uL (2.0-7.7); Basophil# 0.04 X10^3/uL; Basophil% 0.3 % (0-1); Hematocrit 29.3 % (40-54); Hemoglobin 9.2 g/dL (13.0-16.5); Lymphocyte # 0.22 X10^3/ul (0.83-4.51); Lymphocyte % 1.6 % (19-41); Mean Corp Hgb Conc 31.4 g/dL (32-36); Mean Corpuscular Hgb 25.3 pg (27.0-32.0); Mean Corpuscular Volume 80.5 fL (80-94); Mean Platelet Vol. 10.1 fl (6.2-12.0); Monocyte# 0.68 X10^3/uL; NRBC Flagged by Analyzer 0 % (0-5); Neutrophil # 12.63 X10^3/uL (2.7-7.7); Neutrophil % 92.5 % (47-70); POSITIVE DIFFERENTIAL YES; Platelet Count 625 K/mm3 (150-450); RBC Distribution Width CV 18.2 % (11.6-14.6); RBC Distribution Width SD 52.3 fl (35.1-43.9); Red Blood Count 3.64 M/mm3 (4.6-6.2); White Blood Count 13.7 K/mm3 (4.4-11.0)
[2021-02-18] MEDS: Morphine 4 MG/ML Syringe IV (07:27)
[2021-02-18] MEDS: Ondansetron 4 MG/2 ML Vial IV (07:27)
[2021-02-18] MEDS: 0.9% Normal Saline 1,000 ML 1000 ML IV (07:27)
[2021-02-18 07:31] LABS: Differential Indicated SCAN CRITERIA MET
[2021-02-18 07:43] LABS: ALB/GLOB Ratio 0.4 RATIO (0.9-2.4); AST(SGOT) 39 U/L (15-37); Alanine Aminotransfer ALT/SGPT 55 U/L (16-61); Alkaline Phosphatase 723 U/L (45-117); Anion Gap 5 (5-15); BUN 23 mg/dL (7-18); Calcium,Total 8.4 mg/dL (8.5-10.1); Chloride 106 mmol/L (98-107); Creatinine, Serum 0.92 mg/dL (0.70-1.30); EST Glomerular Filtration Rate 90 mL/min (>60); Est Glom Filt Rate - Afr Amer 109 mL/min (>60); Estimated Creatinine Clearance 61.76 ml/min; Globulin 4.6 g/dL (2.2-4.2); Glucose 118 mg/dL (74-106); Lipase 70 U/L (73-393); Potassium 4.8 mmol/L (3.5-5.1); Protein, Total 6.6 g/dL (6.4-8.2); Sodium Level 139 mmol/L (136-145)
[2021-02-18 11:12] VITALS: BP 136/86; PULSE 86; RESP 16; TEMP 36.8; O2SAT 98
== END 2021-02-18 11:18 | disposition home or self-care (01) ==
PROVIDERS: Emergency Provider Student in an Organized Health Care Education/Training Program; PCP Family Medicine
DX: G89.18 Other acute postprocedural pain (principal); R18.8 Other ascites; Z90.49 Acquired absence of other specified parts of digestive tract; Z93.2 Ileostomy status; Z85.038 Personal history of other malignant neoplasm of large intestine; R11.2 Nausea with vomiting, unspecified; R10.9 Unspecified abdominal pain
CPT/HCPCS: 36415; 74177; 80053; 83690; 85025; 86850; 86900; 86901; 96361; 96374; 96375; 99285; J7030; Q9967; A4216; J2405

== ENCOUNTER 2021-05-31 09:06 | Outpatient (CLI) | payer OTHER, SELFPAY | END 2021-05-31 23:59 | disposition home or self-care (01) | LOC: PSN 09:07 | PROVIDERS: PCP Family Medicine; Referring Provider Colon & Rectal Surgery; Visit Provider Colon & Rectal Surgery | DX: Z01.818 Encounter for other preprocedural examination (principal); Z20.822 Contact with and (suspected) exposure to COVID-19 | CPT/HCPCS: 87635; C9803; U0003; U0005 ==

== ENCOUNTER 2021-07-02 13:06 | Outpatient (RCR) | payer OTHER, SELFPAY ==
--- NOTE | 2021-07-02 17:24 | EX.NTREPO ---
Medical Nutrition Therapy - History Nutrition Services has been consulted to:: Manage nutrient details of diet order, Conduct nutrition education, Conduct nutrition counseling Current diet/nutrition support order:: No issues with chewing / swallowing reported - Anthropometric Measurements Height:: 5 ft 6 in Weight:: 48.716 kg Body Mass Index (BMI):: 17.3 - Assessment Food and Nutrient Intake: Eating frequent small meals as tolerated - Nutrition Diagnosis: Intake Problem Inadequate Oral Intake Intake Problem - Etiology: Disease management of Colon cancer & poor pro/calorie intake Intake Problem - Signs/Symptoms: BMI: 16.8. WT: 107.4. Moderate subcutaneous fat loss in orbital area, protrusion of clavicles. 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 WT: 107.4. Moderate subcutaneous fat loss in orbital area, protrusion of clavicles. 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 Generalized loss of energy / weakness reported Status: Active Problem - Protein Calorie Malnutrition Evidence of Malnutrition Exists: Yes Moderate Protein Calorie Malnutrition: Chronic Unspecified Protein Calorie Malnutrition: Moderate pro/bryan - Nutrition Intervention Nutrition Prescription: Estimated Calorie Needs: 1500 - 1750 / day to increase weight (RMR x 1.2 + 250). Estimated Protein Needs: 50 - 75 gm / day (1 - 1.5 gm / kg). Estimated Fluid Needs: 1500 - 1800 mL / day (30 mL / kg) - Food / Nutrient Delivery Interventions Summary of nutrition intervention:: Nutrition education provided, Nutrition counseling provided, Adjust diet order, Provide oral nutrition supplement Nutrition support ordered as / adjusted to:: Low fiber, low fat, Meal Plan, limiting GI stimulants. 5- 6 small meals / day 3-4 hours apart. 1 to 2 - 8 oz containers of High Protein / High Calorie Nutrition Supplement (exp: Ensure Complete) Nutrition Counseling: Recommended High Calorie / High Protien Oral Nutrition Supplement (350 calories / 30 gm protein / 8 oz) - 1 to 2 / day Coordination of Nutrition Care: F/U x 1 month or as needed - MNT Monitoring Active Nutrition Patient: Yes
[2021-07-02 17:28] VITALS: BMI 17.3
== END 2021-07-30 23:59 ==
LOC: NS 13:06
PROVIDERS: PCP Family Medicine; Referring Provider Internal Medicine Hematology & Oncology; Visit Provider Internal Medicine Hematology & Oncology
DX: Z71.3 Dietary counseling and surveillance (principal); R63.4 Abnormal weight loss; C18.7 Malignant neoplasm of sigmoid colon; Z68.1 Body mass index [BMI] 19.9 or less, adult
CPT/HCPCS: 97802

== ENCOUNTER → 2022-09-30 | Outpatient (CLI) | payer OTHER, SELFPAY ==
--- NOTE | 2022-09-30 18:05 | CT_ITS ---
STUDY: CT CHEST, ABDOMEN T PELVIS WITH CONTRAST REASON FOR EXAM: Male, 57 years old. Colon cancer surveillance; elevated LFTs. History of ulcerative colitis. RADIATION DOSAGE (If Supplied By Facility): CTDIvol = ( 9.54 ) mGy, DLP = ( 394.51 ) mGy TECHNIQUE: Transaxial imaging was performed following intravenous administration of IV 100mL Isovue-370. Multiplanar coronal and sagittal images were reformatted. Individualized dose optimization techniques were used for this CT. COMPARISON: Comparison is made with prior CT scan of the chest dated December 28, [address] scan of the abdomen and pelvis dated February 19, 2020. FINDINGS: CHEST Stable scarring at the lung apices likely worse on the right side. There is no demonstrated pleural abnormality. Normal heart and pericardium. No coronary artery calcification. Normal mediastinum. Normal hilar regions. Normal unenhanced pulmonary arteries. Normal aorta arch and descending thoracic aorta. There are degenerative changes of the thoracic spine. There is no demonstrated abnormality of the visualized upper abdomen. ABDOMEN The visualized lung bases are unremarkable. The visualized portions of the heart are within normal limits. Normal liver. Normal gallbladder and extrahepatic biliary system. Normal spleen. Normal pancreas. Normal bilateral adrenal glands. Normal right kidney. Normal left kidney. Normal visualized stomach. The previously seen right-sided ileostomy is not visualized at this time. The patient is status post ileal rectal anastomosis. There is non-visualization of the appendix. There is scattered atherosclerotic calcification of the abdominal aorta, without a demonstrated aneurysm. Normal inferior vena cava. Normal retroperitoneum. Normal abdominal wall. There are degenerative changes of the visualized lumbar spine. PELVIS Normal urinary bladder. Normal visualized small intestine. Normal visualized colon. There is no pelvic fluid. There is no pelvic lymphadenopathy or mass lesion. Normal visualized pelvic arteries. CT/CT Chest, Abd, Pel w/Contrast IMPRESSION: Status post ileorectal anastomosis. The previously seen right lower quadrant ileostomy is not seen at this time. Electronically Signed: Bk Berkowitz MD at 10:08 EDT ,
== END | disposition home or self-care (01) ==
LOC: CT 18:02
PROVIDERS: PCP Family Medicine; Visit Provider Nurse Practitioner Family
DX: C18.7 Malignant neoplasm of sigmoid colon (principal); R79.89 Other specified abnormal findings of blood chemistry
CPT/HCPCS: 71260; 74177; Q9967

== ENCOUNTER → 2023-03-31 | Outpatient (CLI) | payer OTHER, SELFPAY ==
--- OUTSIDE RECORDS SUMMARY | 2023-03-31 11:45 | XMS RPT_ITS | CCD ---
Author Name Unknown Address [address] [place] [address] Organization [facility] Care Team Providers Care Storekeeper Engineering Name Role Phone Sage Taylor MD Primary Care Provider SAGE TAYLOR Primary Care Unavailable MIROSLAVA JOINER Admitting Unavailable MRIOSLAVA JOINER Attending Unavailable SAGE TAYLOR Primary Care Unavailable SAGE TAYLOR Referring Unavailable MIROSLAVA JOINER Attending Unavailable MIROSLAVA JOINER Attending Unavailable GRANT CARR Referring Unavailable SAGE TAYLOR Primary Care Unavailable Medications Current Medications Medication Drug Class(es) Dates Sig (Normalized) Sig (Original) acetaminophen 325 mg oral tablet (4 sources) Start: 06-06-2021 End: 06-13-2021 take 3 tablets by mouth every eight hours acetaminophen 325 MG tablet Take 3 tablets by mouth every 8 hours for 7 days. 63 tablet 0 06/06/2021 Active Completed/Discontinued Medications Medication Drug Class(es) Dates Sig (Normalized) Sig (Original) Adhesive Tape (Medipore H Surgical 2 x10yd) Tape (4 sources) Start: 06-06-2021 End: 07-11-2021 Adhesive Tape (Medipore H Surgical 2 x10yd) Tape Use as directed for dressing changes. 3 Each 3 06/06/2021 07/11/2021 Discontinued Problems Active Problems Problem Classification Problem Date Documented Da te Episodic/Chronic Cancer of colon (6 sources) Malignant tumor of sigmoid colon; 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: [Malignant neoplasm of sigmoid colon] Onset: 02-12-2021 03-07-2021 Chronic Complications of surgical procedures or medical care (6 sources) Enterostomy malfunction; 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: [Enterostomy malfunction] Onset: 05-02-2021 Chronic Other gastrointestinal disorders (1 source) Diarrhea; 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: [Intestinal malabsorption, unspecified] Chronic Other gastrointestinal disorders (1 source) H/O: ulcerative colitis; 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: [Personal history of other diseases of the digestive system] 02-09-2023 Episodic Other gastrointestinal disorders (2 sources) Personal history of other diseases of the digestive system; 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: [Personal history of other diseases of the digestive system] Onset: 02-09-2023 Episodic Regional enteritis and ulcerative colitis (9 sources) Ulcerative colitis; 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: [Ulcerative colitis, unspecified, without complications] Onset: 01-03-2021 03-07-2021 Chronic Unclassified (2 sources) Post Op Visit; 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: [Post Op Visit] Onset: 03-13-2022 Past or Other Problems Problem Classification Problem Date Documented Da te Episodic/Chronic Anal and rectal conditions (4 sources) Anal pain; 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: [Other specified diseases of anus and rectum] Onset: 02-28-2022 Episodic Results Test Name Value Interpretation Reference Range Facil ity Vital Signs Date Time Vital Sign Value Performing Clinician Faci lity 02-09-2023 09:15-0500 Diastolic blood pressure 70 mm[Hg] Miroslava Joiner MD Work Phone: [facility] 02-09-2023 09:15-0500 Heart rate 61 /min Miroslava Joiner MD Work Phone: [facility] 02-09-2023 09:15-0500 Respiratory rate 16 /min Miroslava Joiner MD Work Phone: [facility] 02-09-2023 09:15-0500 SaO2% (BldA) [Mass fraction] 100 % Miroslava Joiner MD Work Phone: [facility] 02-09-2023 09:15-0500 Systolic blood pressure 120 mm[Hg] Miroslava Joiner MD Work Phone: [facility] 02-09-2023 08:57-0500 Body temperature 98.29 [degF] Miroslava Joiner MD Work Phone: [facility] 02-09-2023 07:38-0500 Body height 167.6 cm Miroslava Joiner MD Work Phone: 6(257)334-583806 [place] [address] 02-28-2022 08:20-0500 Diastolic blood pressure 74 mm[Hg] Miroslava Joiner MD Work Phone: 3(487)437-123806 [place] [address] 02-28-2022 08:20-0500 Heart rate 67 /min Miroslava Joiner MD Work Phone: 2(095)379-106106 [place] [address] 02-28-2022 08:20-0500 Respiratory rate 13 /min Miroslava Joiner MD Work Phone: 0(293)770-545606 [place] [address] 02-28-2022 08:20-0500 SaO2% (BldA) [Mass fraction] 100 % Miroslava Joiner MD Work Phone: 5(458)929-368206 [place] [address] 02-28-2022 08:20-0500 Systolic blood pressure 127 mm[Hg] Miroslava Joiner MD Work Phone: 8(357)423-197506 [place] [address] 02-28-2022 07:54-0500 Body temperature 97.39 [degF] Miroslava Joiner MD Work Phone: 1(379)805-975906 [place] [address] 02-28-2022 06:36-0500 Body height 167.6 cm Miroslava Joiner MD Work Phone: 4(488)415-564006 [place] [address] 02-28-2022 06:36-0500 Body mass index (BMI) [Ratio] 16.79 kg/m2 Miroslava Joiner MD Work Phone: 7(596)044-330406 [place] [address] 02-28-2022 06:36-0500 Body weight 47.17 kg Miroslava Joiner MD Work Phone: 9(371)700-245306 [place] [address] 12-26-2021 15:25-0400 Body height 167.6 cm Miroslava Joiner MD Work Phone: 2(637)153-383506 [place] [address] 12-26-2021 15:25-0400 Body mass index (BMI) [Ratio] 16.87 kg/m2 Miroslava Joiner MD Work Phone: 6(999)351-424906 [place] [address] 12-26-2021 15:25-0400 Body weight 47.4 kg Miroslava Joiner MD Work Phone: 8(889)883-738006 [place] [address] 12-26-2021 15:25-0400 Diastolic blood pressure 84 mm[Hg] Miroslava Joiner MD Work Phone: 5(910)087-089906 [place] [address] 12-26-2021 15:25-0400 Heart rate 69 /min Miroslava Joiner MD Work Phone: 4(472)777-649206 [place] [address] 12-26-2021 15:25-0400 Systolic blood pressure 137 mm[Hg] Miroslava Joiner MD Work Phone: 1(595)663-087606 [place] [address] 07-11-2021 12:05-0400 Diastolic blood pressure 68 mm[Hg] Miroslava Joiner MD Work Phone: 1(816)370-534706 [place] [address] 07-11-2021 12:05-0400 Heart rate 64 /min Miroslava Joiner MD Work Phone: 8(222)833-322306 [place] [address] 07-11-2021 12:05-0400 Systolic blood pressure 113 mm[Hg] Miroslava Joiner MD Work Phone: 4(893)805-799706 [place] [address] 07-11-2021 12:02-0400 Body height 167.6 cm Miroslava Joiner MD Work Phone: 3(820)012-389406 [place] [address] 07-11-2021 12:02-0400 Body mass index (BMI) [Ratio] 16.93 kg/m2 Miroslava Joiner MD Work Phone: 6(804)758-046106 [place] [address] 07-11-2021 12:02-0400 Body weight 47.58 kg Miroslava Joiner MD Work Phone: 4(317)065-896806 [place] [address] 06-06-2021 15:13-0400 Body temperature 97.9 [degF] Miroslava Joiner MD Work Phone: [facility] 06-06-2021 15:13-0400 Diastolic blood pressure 72 mm[Hg] Miroslava Joiner MD Work Phone: [facility] 06-06-2021 15:13-0400 Heart rate 70 /min Miroslava Joiner MD Work Phone: [facility] 06-06-2021 15:13-0400 Respiratory rate 16 /min Miroslava Joiner MD Work Phone: [facility] 06-06-2021 15:13-0400 SaO2% (BldA) [Mass fraction] 97 % Miroslava Joiner MD Work Phone: [facility] 06-06-2021 15:13-0400 Systolic blood pressure 147 mm[Hg] Miroslava Joiner MD Work Phone: [facility] 06-06-2021 05:24-0400 Body mass index (BMI) [Ratio] 19.11 kg/m2 Miroslava Joiner MD Work Phone: [facility] 06-06-2021 05:24-0400 Body weight 53.71 kg Miroslava Joiner MD Work Phone: [facility] 06-04-2021 19:33-0400 Body height 167.6 cm Miroslava Joiner MD Work Phone: [facility] Encounters Encounter Date Encounter Type Care Provider Facility Start: 02-09-2023 ambulatory MIROSLAVA JOINER Facility :[facility] Start: 02-09-2023 End: 02-09-2023 Subsequent hospital visit by physician Miroslava Joiner MD Work Phone: [facility] Start: 03-13-2022 ambulatory SAGE TAYLOR Facility :[facility] Start: 02-28-2022 End: 02-28-2022 ambulatory SAGE TAYLOR Facility:[facility] Start: 02-28-2022 End: 02-28-2022 Subsequent hospital visit by physician Miroslava Joiner MD Work Phone: [facility] [place] Procedures Date Procedure Procedure Detail Performing Clinician Start: 02-09-2023 POUCHOSCOPY Grant Falcon naveeney INSULATION POWER UNIT TENDER-ADMINISTRATIVE OFFICE ASSISTANT Work Phone: Start: 06-06-2021 Assay of magnesium Miroslava Joiner MD Work Phone: Start: 06-05-2021 Assay of magnesium Miroslava Joiner MD Work Phone: Start: 06-04-2021 CARDIAC RHYTHM Other Ot her Start: 06-04-2021 End: 06-04-2021 Closure enterostomy lg/small intestine Miroslava Joiner MD Work Phone: Plan of Treatment Date Care Activity Detail Author Start: 10-31-2022 COVID-19 VACCINE ( season) COVID-19 VACCINE () [facility] Start: 10-31-2022 Influenza vaccination INFLUENZA VACCINE (#1) [facility] Start: 03-13-2022 End: 03-13-2022 Patient encounter procedure 03/13/2022 Office Visit Colon & Rectal Surgery Miroslava Joiner MD [address] [place] [address] [facility] [place] Start: 02-28-2022 End: 02-28-2022 Admission to same day surgery center 02/28/2022 Surgery Multispecialty Miroslava Joiner MD [address] [place] [address] EXAM UNDER ANESTHESIA ANORECTAL [facility] [place] [facility] Payers Date Payer Category Payer Unknown [employer] [facility] [employer] [id number] 2021-Present [address] [place] [address] [id number] 2021 Unknown [id number] 1965 Unknown [id number] 1965 Unknown [id number] 1965 Unknown [id number] Social History Date Type Detail Facility Start: 01-03-2021 End: 12-26-2021 Tobacco smoking status NHIS Never smoked tobacco [facility] Start: 01-03-2021 End: 12-26-2021 Tobacco use and exposure Smokeless tobacco non-user [facility] Start: 06-05-2021 End: 02-09-2023 Alcohol intake Ex-drinker (finding) [facility] Start: 1965 Sex Assigned At Not on file O [facility] Start: 05-25-2021 End: 06-04-2021 Exposure to SARS-CoV-2 (event) Not sure [facility] Start: 02-18-2022 End: 02-28-2022 Exposure to SARS-CoV-2 (event) Unable to assess [facility] Start: 03-13-2022 History of Social function [facility] Start: 03-13-2022 Tobacco use panel [facility] Clinical Notes 01-08-2021 to 02-09-2023 Salty Mead MD - 02/09/2023 8:15 AM Kelvin Kelsey RN - 02/09/2023 8:15 AM Kelvin Kelsey RN - 02/09/2023 8:15 AM ESTBrief Op Note - Miroslava Joiner MD - 02/28/2022 8:45 AM ESTMedications Note Date & Type Note Facility 02-09-2023 History of Present illness Narrative ENDOSCOPIC PREPROCEDURE HISTORY AND PHYSICAL HISTORY OF PRESENT ILLNESS: Mohamud Malik is a 57 y.o. male seen in the pre-procedure area at [facility]. The indication for endoscopic evaluation includes: History of ulcerative colitis Mohamud Malik is a 55 y.o. male with a PMH of UC and early stage cancer s/p total proctocolectomy, Jpouch, loop ileostomy who most recently underwent a loop ileostomy closure on 06/04/2021. Here for annual pouchoscopy.Feels well today. PAST MEDICAL HISTORY: Past Medical History: Diagnosis Date Colon cancer 10/2020 Ulcerative colitis diagnosed in the 80s- no surgery SURGICAL HISTORY: Past Surgical History: Procedure Laterality Date EXAM UNDER ANESTHESIA ANORECTAL N/A 02/28/2022 Laterality: N/A; Surgeon: Miroslava Joiner MD; Location: [facility] PERIOP ENDOSCOPY SMALL INTESTINE POUCH DIAGNOSTIC N/A 02/28/2022 Laterality: N/A; Surgeon: Miroslava Joiner MD; Location: [facility] PERIOP LOOP ILEOSTOMY CLOSURE N/A 06/04/2021 Laterality: N/A; Surgeon: Miroslava Joiner MD; Location: [facility] ENDOSCOPY SMALL INTESTINE POUCH DIAGNOSTIC N/A 04/22/2021 Laterality: N/A; Surgeon: Miroslava Joiner MD; Location: [facility] COLOPROCTECTOMY TOTAL W/ LOOP ILEOSTOMY OR CREATION ILEAL RESERVOIR LAPAROSCOPIC N/A 02/12/2021 Laterality: N/A; Surgeon: Miroslava Joiner MD; Location: [facility] MA[facility] OR SIGMOIDOSCOPY DIAGNOSTIC N/A 02/04/2021 Laterality: N/A; Surgeon: Miroslava Joiner MD; Location: [facility] HIP REPLACEMENT Left 2005 COLONOSCOPY DIAGNOSTIC Nov [id number] MEDICATIONS: Current Outpatient Medications Medication Instructions diphenhydrAMINE-APAP, sleep, (TYLENOL PM EXTRA STRENGTH PO) 1 tablet, Oral, DAILY AT BEDTIME Diphenoxylate-atropine 2.5-0.025 MG tablet EC/DR 1 tablet, Oral, 4 TIMES DAILY NEEDED Ibuprofen (MOTRIN) 200 mg, Oral, EVERY 6 HOURS NEEDED Current Outpatient Medications: Diphenoxylate-atropine 2.5-0.025 MG tablet EC/DR, Take 1 tablet by mouth 4 times daily as needed for Diarrhea., Disp: , Rfl: diphenhydrAMINE-APAP, sleep, (TYLENOL PM EXTRA STRENGTH PO), Take 1 tablet by mouth at bedtime., Disp: , Rfl: Ibuprofen 200 MG tablet, Take 1 tablet by mouth every 6 hours as needed for Mild Pain., Disp: , Rfl: ALLERGIES: No Known Allergies FOCUSED REVIEW OF SYSTEMS: Negative for nausea, vomiting, abdominal pain and diarrhea VITAL SIGNS: Vitals: 02/09/23 0738 02/09/23 0748 BP: 114/69 114/69 Pulse: 67 65 Resp: 14 14 Temp: 98.4 degrees F (36.9 degrees C) SpO2: 100% 100% Height: 1.676 m (5' 6 ) PREPROCEDURE PHYSICAL EXAM: AIRWAY: normal, Mallampati: Class II (complete visualization of the uvula) HEART: HDS. PULMONARY: Normal work of breathing, no respiratory distress. ABDOMEN: Soft, nontender, nondistended ASSESSMENT: Mohamud Malik is a 57 y.o. male is ready for the planned procedure. ASA Class: ASA 3 - Patient with moderate systemic disease with functional limitations PLAN: Will plan to proceed with POUCHOSCOPY using Monitored Anesthesia Care. Miroslava Joiner MD documented in this encounter [facility] 02-09-2023 Nurse Note PT Given discharge paperwork and reviewed per MD and nurse. Monument Erector at bedside. Diet and restrictions reviewed as well. Venous access removed no complications noted. Ok to d/c Anesthesia and procedural . documented in this encounter [facility] 02-09-2023 Nurse Surgical operation note PT Given discharge paperwork and reviewed per MD and nurse. Monument Erector at bedside. Diet and restrictions reviewed as well. Venous access removed no complications noted. Ok to d/c Anesthesia and procedural . [facility] 02-28-2022 Miscellaneous Notes Mohamud Malik ([id number]) PRE OPERATIVE DIAGNOSIS Ulcerative pancolitis with other complication [K51.018] Anal pain [K62.89] POST OPERATIVE DIAGNOSIS Post-Op Diagnosis Codes: * Ulcerative pancolitis with other complication [K51.018] * Anal pain [K62.89] PROCEDURE PERFORMED Procedure(s) (LRB): EXAM UNDER ANESTHESIA ANORECTAL (N/A) ENDOSCOPY SMALL INTESTINE POUCH DIAGNOSTIC (N/A) Fistulotomy PRIMARY CLOSURE No INTRAOPERATIVE FINDINGS No significant abnormalities SURGEON Surgeon(s) and Role: * Miroslava Joiner MD - Primary ANESTHESIOLOGIST Anesthesiologist: Piyush David MD CRM MANAGER: MT Mitchell SURGICAL STAFF [employer] Safety Engineer: Maris Lewis RN; Meera Wells RN Scrub Person: Bj Garcia COMPLICATIONS None ESTIMATED BLOOD LOSS Minimal SPECIMENS below ID Type Source Tests Collected by Time Destination 1 : Right anterior anal lesion Permanent TISSUE SURG PATH REQUEST Miroslava Joiner MD 02/28/2022 0736 2 : Rectal Cuff-History of ulcerative colitis Permanent TISSUE SURG PATH REQUEST Miroslava Joiner MD 02/28/2022 0743 Miroslava Joiner MD February 28, 2022 1:47 PM Pre-op Diagnosis: Ulcerative colitis status post J-pouch with right anterior anal lesion Post-op Diagnosis: 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 I personally performed the procedure without resident assistance. Service: Colorectal Surgery Anesthesia: General via spontaneous airway Anesthesiologist: Piyush David MD CRM MANAGER: MT Mitchell EBL: Minimal Complication: None Counts: Reported as correct. No foreign bodies identified on inspection of the anus Specimens: Right anterior anal lesion and rectal cuff Statement of Medical Necessity Mr. Malik is a 56 y.o. male with a history of ulcerative colitis. Since we did is J-pouch and took down his ileostomy he has had quite a bit of diarrhea and anal irritation. He had one lesion in the right anterior anus that was hard to distinguish whether it was indeed just due to inflammation. He is also about one year out do for his pouchoscopy The risks, benefits and alternatives of surgery were explained to him and he desired to proceed. Operation After informed consent was obtained, Mr. Malik was brought to the operating room. he was put to sleep and then positioned in lithotomy on the operating table. Pressure points were padded. Sequential compression devices were applied. The perineum was prepped and draped in the usual sterile fashion. The Hill-Ortiz retractor was inserted and the anus inspected. He had the the area of inflammation in the right anterior perianal skin. As I look at that were carefully it actually had a little fistula under it. I was only under the skin and so I performed a fistulotomy. I sent the inflamed edge of that as specimen. Otherwise the anus appeared normal although with some mild skin irritation. We then performed a pouchoscopy inserting the EGD scope into the afferent limb of the pouch. The afferent limb and the pouch were both normal. He had only a mild amount of inflammation in the cuff. I did take several biopsies there just has surveillance for dysplasia. The patient tolerated the procedure well. he was covered with dry dressings and taken to the recovery room. documented in this encounter [facility] 02-28-2022 Note Formatting of this n ote is different from the original. Mohamud Malik ([id number]) PRE OPERATIVE DIAGNOSIS Ulcerative pancolitis with other complication [K51.018] Anal pain [K62.89] POST OPERATIVE DIAGNOSIS Post-Op Diagnosis Codes: * Ulcerative pancolitis with other complication [K51.018] * Anal pain [K62.89] PROCEDURE PERFORMED Procedure(s) (LRB): EXAM UNDER ANESTHESIA ANORECTAL (N/A) ENDOSCOPY SMALL INTESTINE POUCH DIAGNOSTIC (N/A) Fistulotomy PRIMARY CLOSURE No INTRAOPERATIVE FINDINGS No significant abnormalities SURGEON Surgeon(s) and Role: * Miroslava Joiner MD - Primary ANESTHESIOLOGIST Anesthesiologist: Piyush David MD CRM MANAGER: Darline Valle APRN-REGGIE SURGICAL STAFF [employer] Safety Engineer: Maris Lewis RN; Meera Wells RN Scrub Person: Bj Garcia COMPLICATIONS None ESTIMATED BLOOD LOSS Minimal SPECIMENS below ID Type Source Tests Collected by Time Destination 1 : Right anterior anal lesion Permanent TISSUE SURG PATH REQUEST Miroslava Joiner MD 02/28/2022 0736 2 : Rectal Cuff-History of ulcerative colitis Permanent TISSUE SURG PATH REQUEST Miroslava Joiner MD 02/28/2022 0743 Miroslava Joiner MD February 28, 2022 1:47 PM [facility] 02-28-2022 Nurse Surgical operation note 0825 Discharge instructions reviewed with patient and , all questions answered, AVS provided 0831 Dr. David Anesthesia MD at bedside for post-op eval 0845 Patient discharged to home with , ambulated to car with steady gait. [facility] 02-28-2022 Nurse Note 0825 Discharge instructions reviewed with patient and , all questions answered, AVS provided 0831 Dr. David Anesthesia MD at bedside for post-op eval 0845 Patient discharged to home with , ambulated to car with steady gait. Patient transported to PACU, O2 in place, report given to SUPERVISOR PASTE MIXING. documented in this encounter [facility] 02-28-2022 Note Formatting of this n ote might be different from the original. 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 I personally performed the procedure without resident assistance. Service: Colorectal Surgery Anesthesia: General via spontaneous airway Anesthesiologist: Piyush David MD CRM MANAGER: MT Mitchell EBL: Minimal Complication: None Counts: Reported as correct. No foreign bodies identified on inspection of the anus Specimens: Right anterior anal lesion and rectal cuff Statement of Medical Necessity Mr. Malik is a 56 y.o. male with a history of ulcerative colitis. Since we did is J-pouch and took down his ileostomy he has had quite a bit of diarrhea and anal irritation. He had one lesion in the right anterior anus that was hard to distinguish whether it was indeed just due to inflammation. He is also about one year out do for his pouchoscopy The risks, benefits and alternatives of surgery were explained to him and he desired to proceed. Operation After informed consent was obtained, Mr. Malik was brought to the operating room. he was put to sleep and then positioned in lithotomy on the operating table. Pressure points were padded. Sequential compression devices were applied. The perineum was prepped and draped in the usual sterile fashion. The Hill-Ortiz retractor was inserted and the anus inspected. He had the the area of inflammation in the right anterior perianal skin. As I look at that were carefully it actually had a little fistula under it. I was only under the skin and so I performed a fistulotomy. I sent the inflamed edge of that as specimen. Otherwise the anus appeared normal although with some mild skin irritation. We then performed a pouchoscopy inserting the EGD scope into the afferent limb of the pouch. The afferent limb and the pouch were both normal. He had only a mild amount of inflammation in the cuff. I did take several biopsies there just has surveillance for dysplasia. The patient tolerated the procedure well. he was covered with dry dressings and taken to the recovery room. [facility] 02-28-2022 Hospital Discharge instructions Miroslava Joiner MD - 02/28/2022 7:53 AM EST Sitz baths Sit in 3-4 inches of warm, plain water for 10-15 minutes three times a day after after bowel movements. This should help with keeping clean and with pain. You make take sitz baths even more often or for a longer time if you find them helpful with your pain control. If you have difficulty urinating or moving your bowels, you can try doing so in the bathtub. Bowel Movements You should continue to eat normally. Your bowels should continue to move. Take the docusate to prevent constipation as long as you are taking the pain medicine. If you do not have a bowel movement every couple of days, take 2 tablespoons of milk of magnesia as needed. Activity Do not lift over 10 pounds nor do strenuous exercise for 2 weeks. You may return to work when you are not needing pain medication during the day and are feeling well. Dressings Remove the dressing tomorrow morning or with your first bowel movement, whichever is first. Cover your bottom with dry gauze if needed to keep the drainage off of your clothes. YOU SHOULD SEEK MEDICAL ATTENTION IMMEDIATELY, EITHER HERE OR AT THE NEAREST EMERGENCY DEPARTMENT, IF ANY OF THE FOLLOWING OCCURS: Bleeding gets worse. Abdominal (belly) pain develops. You vomit constantly or vomit blood or material that looks like coffee grounds. Fever (temperature higher than 100.4 F / 38 C), or shaking chills develop. You get lightheaded or short of breath. Prescriptions Your prescriptions were: Sent electronically to your pharmacy You may also use Gold Colvin Multi-symptom (with Lidocaine) ointment every 6 hours on your anus for pain. You may purchase this at the pharmacy documented in this encounter [facility] 02-28-2022 Nurse Surgical operation note Patient transported to PACU, O2 in place, report given to SUPERVISOR PASTE MIXING. [facility] 02-28-2022 History and physical note HPI: 56 y.o. yo male here for pouchoscopy and excision of anal lesion New symptoms: sore sometimes Past Medical History: Diagnosis Date Colon cancer 10/2020 Ulcerative colitis diagnosed in the 80s- no surgery Past Surgical History: Procedure Laterality Date LOOP ILEOSTOMY CLOSURE N/A 06/04/2021 Laterality: N/A; Surgeon: Miroslava Joiner MD; Location: [facility] MAIN OR ENDOSCOPY SMALL INTESTINE POUCH DIAGNOSTIC N/A 04/22/2021 Laterality: N/A; Surgeon: Miroslava Joiner MD; Location: [facility] ENDOSCOPY COLOPROCTECTOMY TOTAL W/ LOOP ILEOSTOMY OR CREATION ILEAL RESERVOIR LAPAROSCOPIC N/A 02/12/2021 Laterality: N/A; Surgeon: Miroslava Joiner MD; Location: [facility] MAIN OR SIGMOIDOSCOPY DIAGNOSTIC N/A 02/04/2021 Laterality: N/A; Surgeon: Miroslava Joiner MD; Location: [facility] ENDOSCOPY HIP REPLACEMENT Left 2005 COLONOSCOPY DIAGNOSTIC Nov 20202001 No family history on file. Social History Tobacco Use Smoking status: Never Smokeless tobacco: Never Vaping Use Vaping Use: Never used Substance Use Topics Alcohol use: Not Currently Drug use: Not Currently ROS: CP: No SOB: No has No Known Allergies. Current Facility-Administered Medications: Lactated ringers IV solution, , Intravenous, Continuous, Piyush David MD, Last Rate: 20 mL/hr at 02/28/22 0648, New Bag at 02/28/22 0648 Exam BP 120/72 (BP Location: Left arm, BP Position: Lying) Pulse 66 Temp 98.2 F (36.8 C) (Infrared) Resp 22 Ht 1.676 m (5' 6 ) Wt 47.2 kg (104 lb) SpO2 100% BMI 16.79 kg/m Smoking Status Never Body mass index is 16.79 kg/m . General appearance: well Lungs: ctab Heart: rrr Abdomen: soft Tests none A/ UC, anal lesion P/ EUA, pouchoscopy, biopsy of anal lesion in OR today [facility] 02-28-2022 History and physical note HPI: 56 y.o. yo male here for pouchoscopy and excision of anal lesion New symptoms: sore sometimes Past Medical History: Diagnosis Date Colon cancer 10/2020 Ulcerative colitis diagnosed in the 80s- no surgery Past Surgical History: Procedure Laterality Date LOOP ILEOSTOMY CLOSURE N/A 06/04/2021 Laterality: N/A; Surgeon: Miroslava Joiner MD; Location: [facility] MAIN OR ENDOSCOPY SMALL INTESTINE POUCH DIAGNOSTIC N/A 04/22/2021 Laterality: N/A; Surgeon: Miroslava Joiner MD; Location: [facility] ENDOSCOPY COLOPROCTECTOMY TOTAL W/ LOOP ILEOSTOMY OR CREATION ILEAL RESERVOIR LAPAROSCOPIC N/A 02/12/2021 Laterality: N/A; Surgeon: Miroslava Joiner MD; Location: [facility] MAIN OR SIGMOIDOSCOPY DIAGNOSTIC N/A 02/04/2021 Laterality: N/A; Surgeon: Miroslava Joiner MD; Location: [facility] ENDOSCOPY HIP REPLACEMENT Left 2005 COLONOSCOPY DIAGNOSTIC Nov 20202001 No family history on file. Social History Tobacco Use Smoking status: Never Smokeless tobacco: Never Vaping Use Vaping Use: Never used Substance Use Topics Alcohol use: Not Currently Drug use: Not Currently ROS: CP: No SOB: No has No Known Allergies. Current Facility-Administered Medications: Lactated ringers IV solution, , Intravenous, Continuous, Piyush David MD, Last Rate: 20 mL/hr at 02/28/22 0648, New Bag at 02/28/22 0648 Exam BP 120/72 (BP Location: Left arm, BP Position: Lying) Pulse 66 Temp 98.2 F (36.8 C) (Infrared) Resp 22 Ht 1.676 m (5' 6 ) Wt 47.2 kg (104 lb) SpO2 100% BMI 16.79 kg/m Smoking Status Never Body mass index is 16.79 kg/m . General appearance: well Lungs: ctab Heart: rrr Abdomen: soft Tests none A/ UC, anal lesion P/ EUA, pouchoscopy, biopsy of anal lesion in OR today documented in this encounter [facility] 02-07-2022 History of Present illness Narrative Dr Joiner contacted to see if bowel prep needed for pouchoscopy. Per Dr Joiner no special bowel prep needed for pouchoscopy. 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 Pt has ongoing anal pain, diarrhea under control. Occasional rectal bleeding. Last visit: Telemedicine on November 28 I will have him take two Lomotil at lunch and two in the evening since that is around the time he had more bowel movements. I suspect that that will continue to improve his anal pain. I will see him back in the office in one month for an exam and to reassess his symptoms HPI: 56 y.o. yo male presents for follow-up With the Lomotil his bowels have slowed some. However he continues to have anal pain. It is a little better but his reports at night he still expresses a great deal of pain Exam BP 137/84 Pulse 69 Ht 1.676 m (5' 6 ) Wt 47.4 kg (104 lb 8 oz) BMI 16.87 kg/m Smoking Status Never Body mass index is 16.87 kg/m . General appearance: Thin but overall more energetic than I have seen him in the past Food Processor: Chhaya Melendrez RN On the right anterior anal verge he has some granulation tissue along with a couple of skin tags that are irregular in shape. On digital exam that area is still firm and granular. I did not go all the way up to his pouch with my digital exam A/ 56-year-old man with history of severe ulcerative colitis complicated by multiple cancers at the time of resection. That was less than one year ago but he now has severe anal pain in an abnormal appearing anal verge. That has not sufficiently resolved by merely slowing his bowels P/ I will take him to the operating room for exam under anesthesia and biopsy of that area. I will also go ahead and do the pouchoscopy he would otherwise be due for an Alondra and examined the whole pouch and biopsy the rectal cuff Chhaya Melendrez RN acted as armhole raiser lockstitch for this exam. documented in this encounter [facility] 12-26-2021 Instructions Valentin Fine - 12/26/2021 3:15 PM EDT Prep for procedure : Clear liquids the evening before surgery and nothing by mouth after midnight. BEFORE SURGERY: [] PRE-PROCEDURE PREPARATION (COMPAC) Date: 02/07/2022 Call Time: 0830AM Patients who are scheduled for a surgical or other procedure at [facility] may be required to complete a pre-operative phone call. A nurse will collect information about your health, fitness, previous operations, allergies and more. This helps prepare the surgeon, the anesthesiologist and you by identifying any potential anesthetic, surgical or post-operative complications. If applicable, you may be referred to undergo an electrocardiogram (ECG), blood or urine tests or other tests. You will also receive pre- and post-surgery instructions to help ensure you are completely informed about what to expect. DAY OF SURGERY: IMPORTANT: If you develop cold/flu like symptoms prior to surgery, please contact our office at [phone] Please note that this schedule is subject to change, you may be contacted up to 24 hours in advance of surgery for any necessary adjustments. This may include an arrival time as early as 5:00 AM. Please plan accordingly. [] SURGERY SCHEDULE YOUR SURGERY DATE: 02/28/22 YOUR SURGERY TIME: to be given 1 day prior to surgery ARRIVAL TIME: to be given 1 day prior to surgery [address] [place] [address] Office #: [phone] Fax #: [phone] CURRENT COVID VISITOR POLICY: These visitor policy changes for hospital inpatients only are effective 04/25: Hospital inpatients, including COVID-19 positive and suspected patients, can have two named visitors of the patient s choice per day as identified in the patient s electronic medical record. Visitors are required to wear a wristband or visitor badge with the date and visitor s name. Visitation is permitted between 8 a.m. to 7 p.m., seven days a week. Visitors must have no COVID-19 symptoms or recently known exposures. Visitors must have no COVID-19 symptoms or recent known exposures and adhere to these protocols: Show a government-issued photo ID upon arrival. Wear a hospital-provided mask over nose AND mouth at all times in all health care settings, including the patient's room, regardless of vaccination status. Practice good hand hygiene. Existing visitor exceptions remain in place for: Emergency departments Surgery/Procedures End of life/Goals of care Outpatient obstetrics Maternity YOU WILL RECEIVE A CALL THE DAY BEFORE SURGERY CONFIRMING YOUR SURGERY AND ARRIVAL TIME. PLEASE CALL IF YOU DO NOT HEAR FROM THE OR. NOTHING TO EAT OR DRINK AFTER MIDNIGHT. PLEASE HAVE YOUR TRANSPORTATION AVAILABLE AT ANY TIME. Arrange to have an adult to drive you to the facility and be there to take you home after the surgery. If you are taking a cab, bus or medical transportation service home, an adult, other than the concrete mixing truck driver, needs to ride with you for your safety. This person will also be responsible for communicating post-operative instructions to you. If you would like to sign up for text messages for [facility] appointment reminders text [facility] TO [phone]. You will receive a response within a few minutes after sending to verify. Please call our office at if you have any questions, problems or if you develop any illnesses such as a cold, sore throat, cough, or fever prior to your surgery. If you are a patient who will require disability paperwork to be completed, please bring your paperwork with you to an office visit. Please allow 7-10 business days for these to be completed. The clinic staff will be completing these forms and you can call the office if you have questions. Medicines to prevent blood clots If you are taking aspirin to prevent blood clots because you have a stent, or you have had a heart attack or stroke, continue to take your aspirin up to, and even on the day of a surgery . If you have a stent, read the Protect Your Stent handout to learn more. The medicines listed below thin the blood to prevent blood clots. Taking them decreases the chance of heart attack, stroke and blood clots. However, taking them before a surgery can also increase the chance of bleeding. Apixiban (Eliquis) Clopidogrel (Plavix) Dabigatran (Pradaxa) Dalteparin (Fragmin) Enoxaparin (Lovenox) Fondaparinux (Arixtra) Prasugrel (Effient) Rivaroxaban (Xarelto) Ticagrelor (Brilinta) Ticlopidine (Ticlid) Warfarin (Coumadin) As soon as you know about a planned surgery: Tell your surgeon about the medicine you take to prevent blood clots. Also, talk with the doctor who prescribes your medicine to prevent clots. He or she can tell you how to adjust your medicine around the time of your surgery. If your surgery date is changed and you stopped taking your medicine to prevent clots, call your doctor. You may need to restart the medicine while you are waiting for your surgery to be rescheduled. What to do about your medicines before surgery Please call your doctor s office if you have any questions about your regular medicines. Some medicines need to be stopped for a time before your surgery to prevent problems. Use this list as a guide. If you are not sure which medicines you should stop before your surgery, ask your doctor to be sure. Follow the directions of your doctor. All herbal medicines should be stopped 14 days before surgery. Monamine oxidase inhibitors should be stopped 7 to 14 days before surgery. These include drugs such as Nardil (Phenelzine Sulfate), Parnate (Tranylcypromine Sulfate), Eldepryl (Seleqiline Hydrochloride). Glucophage (Metformin) should be stopped 48 hours before surgery. Do not take these kinds of medicines the morning of surgery: Metformin should be stopped 48 hours prior to surgery Insulin or oral diabetes medicines - Please check your blood sugar the morning of surgery if you have diabetes. Diuretics (water pills) DARIA Inhibitors for blood pressure Digoxin unless used for irregular heartbeat, such as atrial fibrillation Take these medicines the morning of surgery with a sip of water: All heart medicines All blood pressure medicine, except diuretics (water pills) and DARIA inhibitors All breathing medicines, including inhalers All anti-seizure medicine All heartburn or gastric reflux medicine, except antacids such as Maalox or Mylanta Pain medicine, prescribed to you by a doctor, if in severe pain Steroid medicine Antidepressant medicines, except monamine oxidase inhibitors such as Nardil (Phenelzine Sulfate), Parnate (Tranylcypromine Sulfate), and Eldepryl (Seleqiline Hydrochloride) Preparing for Surgery Do not eat or drink anything (including water, coffee, candy, gum or mints) after midnight before your surgery. Only take the medicine your surgeon or anesthesiologist told you to take by mouth the morning of your surgery. You may brush your teeth, but do not swallow the water. It is important to have an empty stomach before your surgery. Do not smoke/use any sort of tobacco after 6 p.m. the night before your surgery. Wear casual, loose-fitting clothing to the hospital. Do not wear makeup, nail welsh or hair pins to the hospital. Please remove any body piercing's. Please leave jewelry and other valuables at home. Bring a storage case for contact lenses or glasses. They cannot be worn during surgery. If you take medicines on a routine basis, please bring an updated list of medications with you. Limit the number of people bringing you to the hospital. Adult patients should be escorted by one adult. Arrive at the hospital two hours before your surgery, or as directed by your surgeon s office, to allow time to get you ready for surgery. If you have a living will or durable power of claim attorney, please bring a copy of the documents with you. IF YOU USE CPAP BRING YOUR MACHINE WITH YOU TO THE HOSPITAL ALONG WITH THE PRESCRIPTION FOR CPAP PRESSURE LEVELS Getting Your Skin Ready for Surgery You are scheduled to have a surgery that involves cutting through the skin. Because germs live on everyone's skin, there is a greater chance of getting an infection. To lessen your chance of getting an infection, you need to take special care of your skin before the surgery. Follow These Instructions: You may be given or you will need to buy a special soap called 4% chlorhexidine gluconate or CHG. Common brand names for this soap are Hex-A-Clens or Hibiclens. You will need 2 of the 4-ounce bottles or Hibiclens Foam wash. There may be a store brand that is less costly. Ask your pharmacist where to find it in the drug store. It is often with first aid supplies. You may want to call ahead to check that they have the CHG soap in the store. Do not shave near the site where your doctor will be making the cut for your surgery for at least 48 hours before surgery. You need to shower with the CHG soap two times before your surgery within 48 hours Cleaning Your Skin with CHG * 1. Start by washing your hair as usual with your normal shampoo and wash your body with regular soap. Rinse your hair and body very well to remove any shampoo or soap that might be on your skin. 2. Wet a clean washcloth and turn off the shower. 3. Put the CHG soap on the wet clean washcloth. 4. Apply the CHG soap to your whole body from the neck down only. Do not use CHG soap on your face and be careful not to get the CHG in your eyes or ears. CHG soap does not lather well. Put more CHG on the cloth as you cover more of your body. You should use about 4 ounces or 1/2 cup of CHG with each shower. Note: If you are using the Hibiclens (chlorhexidine) Foam wash, then apply 3 pumps of wash directly onto your skin and lather your body from the neck down. 5. Wash your body gently for 5 minutes, paying special attention to the part on your body where the surgery will be done. Be sure to wash the back of your neck, under your arms, your belly button, private parts and your legs down to your toes. Do not scrub too hard. 6. Turn the shower back on and rinse well to get the CHG soap off your body. 7. Pat yourself dry with a clean, dry towel. 8. Do not use any lotions, moisturizer, make-up or other products on the skin near the part of your body that will be cut for surgery. 9. Put on clean clothes. *Special Notes If you do not have a shower or you are not able to get into the shower, do a sponge bath each time. Do not wash your hair unless you are to have a cut into your scalp. First, bathe with a washcloth and regular soap. Rinse with clean water. Then get a clean washcloth and use the CHG to wash your body. Rinse with another clean washcloth and plain water. Dry with a clean towel. If you have any questions about cleaning your skin, call your doctor s office. From the [place] ([place]) Take any major highway to [address] [facility] [address] Take exit [address] to merge onto [address] [facility] [address] toward Take exit 30 to merge onto [facility] toward [place] Use the right [place] to take exit [address] Turn right onto [facility] [address] Use the left [place] to turn left at [address] Turn left From the South ([place]) Take any major highway to [address] Use the middle 2 lanes to take the exit toward [address] Continue onto [address] Take exit 1D to merge onto [address] Take the [address] exit [address] Keep left to continue on Exit 30, follow signs for [place] Take exit [address] Turn right onto [facility] [address] Use the left [place] to turn left at [address] Turn left From the East ([place]) Take any major highway to [address] toward [place] Turn right onto [address] Turn left to merge onto [address] toward [address] Continue onto [address] Turn right onto [facility] [address] Use the left [place] to turn left at [address] Turn left From the West ([facility] [place]) Take any major highway to [address] toward [place] Take exit [address] toward [place] Take the [address] exit [address] exit [address] Keep left to continue on Exit 30, follow signs for [place] Take exit [address] Turn right onto [facility] [address] Use the left [place] to turn left at [address] Turn left Financial Obligation: Your insurance many require an authorization prior to the procedure. Our pre-cert office will be contacting your insurance to see if authorization is required. If you have questions about how much your insurance will pay, please contact your insurance directly. Please be prepared to pay your co-pay, co-insurance, or deductible on the day of your surgery. We request patients with insurance that is less than 100% coverage to pay a deposit prior to the procedure being performed. A counter sales representative from the [facility] will contact you to pre-register you for your services. If you have not received a call by two days prior to your procedure date, please call our Pre-Registration Department at [phone] or [phone]. By calling us in advance, your wait time will be reduced. Our trained representatives can assist you in discussing both your physician and hospital obligations. Are you a [employer] user? If yes, you can log on and complete a pre-registration questionnaire. Medical Technical Writer: You are not eligible for Financial Assistance if you are entering the [facility] solely to seek medical treatment. We want to make sure all patients have access to quality healthcare services at [facility], and we are committed to working with you and your family to obtain appropriate financial assistance. We are here to help. Please let us know if you do not have health insurance or cannot pay your bill in full. We encourage you to contact our Office of Financial Counseling, where staff members are trained to assist you in determining whether you might qualify for an assistance program. Our financial counselors can help you complete applications for government-sponsored programs, describe other financial assistance programs that can help offset costs, or structure workable payment plans for your required medical treatment if you meet certain financial criteria. They can also assist you in explaining your options related to the Affordable Care Act. These options include helping you apply for: [place] Medicaid (if your income meets guidelines) The Affordable Care Act Insurance Exchange Program. Other federal/state assistance programs Or establish a payment plan Other Assistance: [facility] offers an additional sliding scale financial assistance based on Federal Poverty Guidelines. To help determine the appropriate assistance programs for you, you will need to provide details about your job, income, resources, insurance coverage, family size and other information. We realize some of these details may be of a sensitive nature, but it is necessary that you provide them to enable us to help you. We are committed to respecting you and your privacy during this process. If you are uninsured but do not qualify for Medicaid or other assistance programs, our Financial Counselors will be happy to discuss the Affordable Care Act Insurance Exchange programs. If you are interested in learning more about these programs, please contact the Financial Counseling Department at [phone] between 8 a.m. and 5 p.m. . A financial counselor can assist you with the application process. You will be screened for all potential programs. If you appear to be eligible for Medicaid, you will be assisted through the application process. As a Medicaid recipient, your physician fees and facility fees could be covered. Services not covered by [facility] financial assistance program: Physician Fees Transportation fees Dental Services Medically unnecessary services Prescriptions Durable Medical Equipment We Are 100% Tobacco-Free At [facility], we care about the health of our patients, visitors and staff. That s why all of our locations - inside and outside - are 100% tobacco-free. We understand that nicotine is addictive, and we regret the inconvenience to tobacco users. However, as an academic medical [facility] with leading [facility] and [facility], creating a healthy environment for everyone who attends, works and visits our Medical Center is important. documented in this encounter [facility] 07-11-2021 Instructions Nirali Hammer RN - 07/11/2021 12:42 PM EDT Use Desitin in your anal area to protect your skin Follow the instructions in the handout that you received regarding care of your anal area documented in this encounter [facility] 07-11-2021 History of Present illness Narrative Attending Attestation I have seen and examined the patient on July 11. I reviewed the nurse practitioner note and agree with the findings and plan of care as documented. My additions and revisions are included. I was present for the entire exam. I saw and evaluated the patient with Karissa Salas . I provided a substantive portion of the care for this patient. I personally performed all aspects of the medical decision making for this encounter. I have reviewed and verified this documentation and it accurately reflects our care. Presentation: Postop from ileostomy closure Exam: He has fairly bad perianal skin irritation Data reviewed: A. Ileostomy, takedown: Histologic changes consistent with ostomy Negative for dysplasia or malignancy A/P: Doing well postop Continue to follow with Dr. Sutton for cancer surveillance Annual pouchoscopy and biopsies of rectal cuff to ensure he does not develop dysplasia. He can do that here with me or with Dr. Hanson in [place]. Swati Hammer RN acted as medical armhole raiser lockstitch for the procedure/exam/test. Chief complaint: Postoperative follow up HPI: Mr. Malik returns for follow up after undergoing loop ileostomy closure for on 06/04/21. His pathology returned as negative for dysplasia or malignancy. He reports that he was having a lot of diarrhea after surgery, but his stool has since gotten firmer. He states he has been having 4-5 bowel movements per day and multiple being at night. He also endorses a lot of burning rectal pain that he has tried numerous ointments on without relief. He denies abdominal pain. He has had occasional bleeding on his toilet paper and in his toilet bowl. He denies any nausea, vomiting, fevers or chills. He states that his appetite has been good and he only feels occasionally fatigued. He does endorse a small amount of weight loss. He states that the ileostomy site has nearly completely healed and they are no longer packing the wound. Vitals: 07/11/21 1202 07/11/21 1205 BP: 113/68 Pulse: 64 Weight: 47.6 kg (104 lb 14.4 oz) Height: 1.676 m (5' 6 ) Physical Exam: Gen: Alert and oriented x 3, no acute distress Abdomen: Soft, nontender, nondistended. Wound c/d/i, no drainage. Anorectal: Perianal skin with a lot of irritation and moisture, circumferential skin tags. Digital rectal examination reveals no masses or gross blood. This exam was performed in the presence of a medical armhole raiser lockstitch, Nirali Hammer RN. The following tests results were reviewed: Pathologic Diagnosis A. Ileostomy, takedown: Histologic changes consistent with ostomy Negative for dysplasia or malignancy A/P: Mr. Malik is overall doing well after surgery. He will need to have yearly pouchoscopy moving forward. He is to follow-up with our office as needed. He is agreeable with this plan. I went over Mr. Malik's history of present illness independently. The physical exam was done alongside Miroslava Joiner MD. All medical and procedural decision making was done by Miroslava Joiner MD. Faviola Salas APRN, CNP documented in this encounter [facility] 06-06-2021 Note Formatting of this n ote might be different from the original. RN went over all discharge instructions with patient and . RN discussed all incision care instructions, all follow-up appointments, and when to call should any concerns arise (wound infection symptoms, unrelieved pain, etc.). Patient and stated understanding and all questions were answered at this time. RN completed patient teaching involving how to pack wound. stated understanding and all questions were answered at this time. RN provided patient with gauze, tape, swabs, saline, and fluffs. RN removed patient's peripheral IV per policy, catheter was intact. Patient left floor with all belongings, all incision care supplies, and all discharge instructions in wheelchair with LEAD RELAY TESTER. Patient will be driven home by . [facility] 06-06-2021 Miscellaneous Notes RN went over all discharge instructions with patient and . RN discussed all incision care instructions, all follow-up appointments, and when to call should any concerns arise (wound infection symptoms, unrelieved pain, etc.). Patient and stated understanding and all questions were answered at this time. RN completed patient teaching involving how to pack wound. stated understanding and all questions were answered at this time. RN provided patient with gauze, tape, swabs, saline, and fluffs. RN removed patient's peripheral IV per policy, catheter was intact. Patient left floor with all belongings, all incision care supplies, and all discharge instructions in wheelchair with LEAD RELAY TESTER. Patient will be driven home by . 06/06/21 1146 Referral Information Arrived From operating room Final Discharge Planning Discharge Disposition Home Services at Discharge Wound/drain/line/ostomy-supplies CM/SW AVS Portion Completed Yes Community Agency Name(s) For Handoff [facility] Name For Handoff Will need to send scripts. Phone For Handoff [phone] Plan Plan Home with assistance from , she believes she can do the packing Patient/Family In Agreement With Plan yes Transport Request Mode of Transfer private vehicle Accompanied By family member Ana Inpatient PCRM Discharge Note Patient discussed in medical rounds for discharge to home when medically stable, maybe in next day or two. PCRM met with the patient/family/spouse to discuss final discharge plan. Services for Discharge Pt and deny need for services at discharge. feels comfortable doing wound packing. Consults with Final Discharge Recommendations None Lines/Tubes/Drains/Wounds/Suppli es Reyna- was replaced. Pt and ok to take care of it if he fails another void trial. Team anticipates it to come out at discharge. Wet to dry wound packing- supplies to be provided by [facility]. Awaiting scripts from team. Medications No barriers anticipated in obtaining discharge medications. No prior authorizations anticipated. Reconciliation of medications to be completed by the medical team. Durable Medical Equipment Was getting ostomy supplies from [place], now will get wound care supplies. Choice Was Patient Choice Provided: Yes Transportation Transportation will be provided by spouse. Education Discharge education provided by the medical team and updated in the After Visit Summary. Bedside RN to teach wound packing. Follow Up(s) Any follow up requested by the medical team arranged. Appointments in the After Visit Summary. Future Appointments Provider Department Center 07/11/2021 11:45 AM Miroslava Joiner [facility] Gastro[facility] [place] Arrive at: Arrive to 1st Floor Registration [facility] Was Ambulatory PCRM added to the Care Team? No Was a handoff made to an Ambulatory PCRM? No- none available for this surgeon The PCRM has updated the patient's nurse regarding the final discharge plan. Risk of Readmission: 5.5 Category Reference: Low: 0% - 5% Medium - Low: 5.1% - 10% Medium - High: 10.1% - 16% High: 16.1% - 100% No other discharge needs have been identified at this time. This plan was developed in collaboration with the patient and caregiver/preferred decision maker. Patient and family are in agreement with final discharge plan. Please refer to AVS and medical record for additional information. Patient instructed to call with questions. PCRM will continue to follow with medical team for any additional discharge planning needs. Chaparrita CHRISTY Parker [phone] If any changes to this individualized plan of care during evening and weekend hours and assistance is needed, please page the computer operations supervisor CHRISTY at [phone]. Addendum @ 12pm: Team reports they will try a void trial today and patient could leave as early as today. Scripts uploaded and Aidin referral created for [facility] for wound care supplies. Nurse updated of plan. 06/05/21 9459 Referral Information Arrived From home or self-care Readmission Information Was patient readmitted within 30 Days? No Information Source Information Source patient ;spouse Information Source Name Patient Mohamud and spouse Flaca Information Source Number in person verified contacts Outpatient Providers Outpatient Providers Updated In IHIS Yes Contact Information Mission Systems Engineer/SW Added to Care Team Yes This Supervisor Fertilizer is Primary Mission Systems Engineer/SW No Mission Systems Engineer Name Belkis HARRISON for CHRISTY Andujar Social Work Contact Name KatAGNES Living Environment Lives With spouse;child(sujey), dependent Living Arrangements house Provides Primary Care For no one Primary Care Provided By spouse/significant other Support System Immediate family Able to Return to Prior Arrangements yes Functional Status Patient's Functional Status Prior To This Admission? Independent Are There Status Changes This Admisson? No Changes Observed Since Admission? No Changes Observed Concerns With Patient Being Able To Care For Themselves At Discharge? Has Assistance (Friend, Family, Skilled Provider) Who Is Patient's Primary Contact For Discharge Planning, Education And Care For Discharge? Patient lives with spouse and children and was independent with ADL's CLINICAL DATA PROGRAMMER Can Support Person Meet The Care Needs Of The Patient? Yes Employment/Financial Employed? 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 Employment/Financial Concerns no Source Of Income salary/wages Financial Concerns none Insurance Medical Insurance Verified Yes Contacted Financial Assistance/Updated Medical Team Yes Prescription Coverage Yes Pharmacy updated in IHIS Yes Initial Discharge Planning Home Care Services (CLINICAL DATA PROGRAMMER) No Anticipated discharge disposition Home Anticipated Services at Discharge Outpatient follow up Anticipated Changes Related to Illness none Current Discharge Risk high risk diagnoses (i.e., CHF, Stroke, DM, chronic pain, abdominal pain, nausea and vomiting) Transportation Available car;family or friend will provide Discharge Planning Comments Plan for dsicharge homw. to provide trasport. Home Care Services (CLINICAL DATA PROGRAMMER) Additional Home Care Services (CLINICAL DATA PROGRAMMER) no Assessment/Concerns to be Addressed Concerns To Be Addressed denies needs/concerns at this time PCRM Initial Assessment Met with patient and spouse at bedside to complete the initial assessment. Explained role and function of PCRM in multidisciplinary team. Contact number provided for questions. Demographic information reviewed with patient/family and confirmed as correct. Reason for Admission: Mohamud Malik is a 55 y.o. male 1 Day Post-Op from ileostomy reversal Estimated length of stay: 3-5 days Advanced directives Patient does not have Advanced Directives on File Lines/Drains/Tubes PIV/ Reyna/ incision Initial PCRM Discharge Planning Patient lives in a 2 story farm house with 2-3 kash. Home has bath on 1st floor and Bedroom on 2nd floor. Patient was independent with ADL's CLINICAL DATA PROGRAMMER. Patient has not had any HHC/SNF/DME CLINICAL DATA PROGRAMMER. Final plan will be determined closer to discharge, pending therapy and medical team recommendations. Patient/family verbalized understanding and agreement with the plan of care. Patient/family have no questions at this time. PCRM will continue to follow patient with multidisciplinary team for ongoing assessment of needs and for discharge planning. Medical team updated. Belkis BELL RN [facility] Patient Care Wool Cleaner Ph: [phone] For evening and weekend discharge assistance please page the computer operations supervisor PCRM at [phone]. This RN paged the team: Patient was bladder scanned with result of 418 mls. Pt unable to void. Pt rested well overnight. Pt was very drowsy throughout the night, responds to voice. Pt did not have any complaints of pain or nausea overnight so far. Pt has stood at the bedside with RN several times throughout the night but even while standing with the gait belt he was closing his eyes and appeared to be dozing off. He is tolerating a regular diet and is free of nausea and vomiting but often needs reminded to drink fluids. Pt with issues urinating on his own overnight and required a st cath. Pt also bradycardic overnight, from what I could gather that is not his baseline but pt seems the poor historian d/t drowsiness. Take down site with some drainage overnight that seemed to slow down as the night went on. Pre-op Diagnosis: Loop ileostomy after total proctocolectomy for ulcerative colitis with cancer. Post-op Diagnosis: Same Procedure: Loop ileostomy closure Staff: Miroslava Joiner MD, who performed the procedure without resident assistance Anesthesia: General endotracheal EBL: Less than 50 cc Complication: none apparent Counts: Reported as correct. No foreign bodies identified on inspection Statement of Medical Necessity Mr. Malik is a 55 y.o. male with a history of ulcerative colitis. When I met him he had been diagnosed with a sigmoid cancer. His final pathology after total proctocolectomy showed two cancers both of which were early stage. I performed a pouchoscopy which was normal and he is now a few months out from total proctocolectomy and J-pouch and presents for ileostomy closure.. The risks, benefits and alternatives of loop ileostomy closure were explained to him and he desired to proceed. Operation After informed consent was obtained, Mr. Malik was brought to the operating room. he was put to sleep and then positioned supine on the operating table. Pressure points were padded. Sequential compression devices were applied. The abdomen was prepped and draped in the usual sterile fashion. We began by incising the mucocutaneous junction circumferentially. This was carried down through the subcutaneous fat and the ileostomy mobilized off of the fascia. The two ends of the ileostomy were then resected with the SUGEY 80 stapler. The intervening mesentery was taken between clamps and ties. A [id number] functional end-to-end anastomosis was created. A junctional suture was placed. The mesenteric defect was closed with interrupted 3-0 silk suture. The anastomosis was then returned to the abdomen. We then switched to the colorectal closing tray. We closed the posterior sheath with running 0 Vicryl suture. We closed the anterior sheath with interrupted 1. PDS suture. The wound was then packed The patient tolerated the procedure well. he was covered with dry dressings and taken to the recovery room. Paged MD Antonio - [address] pt with some new serosang drainage on take down site noted during shift change. Also do you want pt to get lovenox tonight or hold since he just came up from PACU? Thanks [phone] Received call back, plan to continue to monitor drainage and hold lovenox for tonight. 2100: paged MD Antonio - [address] - FYI pt still unable to urinate. Bladder scan of 240ml. Thanks [phone] Plan to give pt another hour to urinate and get AM labs around 0000. 2247: Messaged MD Antonio via secure chat - Pt still unable to urinate. Has been drinking some but is still pretty drowsy, so he falls back to sleep and forgets to drink. Thanks Messaged read by . Order for fluid bolus placed. I also messaged MD Antonio back that I looked through his chart. Doesn't look like he had a reyna so that means he hasn't urinated since before OR, if that. I then confirmed that he did not want to st cath the pt at this time. 2345: MD at bedside. He stated to allow bolus to finish and if pt still unable to urinate in 30min to an hour I am to notify and we will st cath. 0043: Notified MD Antonio via secure chat that bolus was finished and pt was still unable to urinate. Order to st cath placed. 0119: Messaged MD Antonio via secure chat - 475ml from the st cath. Took two attempts and was a bit bloody and urine was very concentrated and karo. Also his HR drops down to around 45 when sleeping. Comes up the the 50s to 60s when I'm in the room and he's awake. Message seen by MD Antonio, no additional orders at this time. 1645- Pt arrived to [address] [place] [address] without any complications. Oriented pt to staff, room and equipment. Call light left within reach. Mohamud Malik ([id number]) PRE OPERATIVE DIAGNOSIS Ileostomy dysfunction [K94.13] POST OPERATIVE DIAGNOSIS Post-Op Diagnosis Codes: * Ileostomy dysfunction [K94.13] PROCEDURE PERFORMED Procedure(s) (LRB): LOOP ILEOSTOMY CLOSURE (N/A) PRIMARY CLOSURE No INTRAOPERATIVE FINDINGS No significant abnormalities SURGEON Surgeon(s) and Role: * Miroslava Joiner MD - Primary ANESTHESIOLOGIST Anesthesiologist: Neto Mcnally MD; Zachary Weiss MD CRM MANAGER: Perlita Lemon APRN-CRM MANAGER Contract Administration Manager Assisting: James Boykin MD SURGICAL STAFF Rhic Systems Safety Engineer: Genesis Young RN; Ynes Bingham RN Sales Promotion Representative: Kinjal Ortiz COMPLICATIONS None ESTIMATED BLOOD LOSS Minimal SPECIMENS be;pw ID Type Source Tests Collected by Time Destination 1 : Ileostomy Permanent SURG PATH SURG PATH REQUEST Miroslava Joiner MD 06/04/2021 [id number] Miroslava Joiner MD June 04, 2021 3:19 PM documented in this encounter [facility] 06-06-2021 History of Present illness Narrative Psychosocial Assessment Per chart review, patient is a 55 y.o. male with h/o colon cancer and UC. Patient is now POD+2 from an ileostomy reversal. SW met with patient to introduce self, explain nephrology social worker role during inpatient stay, and answer patient questions. Patient was alert and oriented x4 and agreeable to SW visit. Upon approach, patient and spouse were looking out window in hallway observing new hospital construction. Patient and spouse were agreeable to return to room for assessment. Patient sat on edge of bed and patient spouse sat in bedside chair. Both were engaged and polite throughout assessment. Information Source Information Source: patient , spouse Information Source Name: Mohamud luz Thayer Information Source Number: see demographics Contact Information Mission Systems Engineer/SW Added to Care Team: Yes This Supervisor Fertilizer is Primary Mission Systems Engineer/SW: Yes Mission Systems Engineer Name: Chaparrita Oconnor Mission Systems Engineer's Phone Number: [phone] Social Work Contact Name: Kat Hawthorne Produce Laborer's Phone Number: [phone] Living Environment Lives With: child(sujey), adult, spouse (Spouse, Flaca; Daughter Leroy 20 y.o.; 24 Cuate 24 y.o.) Living Arrangements: house (farm house, 2-3 steps to enter) Provides Primary Care For: other (see comments) (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) Caregiving Concerns: Daughter and Son 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 Stagnation Cognitive/Perceptual/Development al Comments: Age appropriate Emotional/Psychological Affect: no deficits noted Mood: congruent to situation Verbal Skills: no deficits noted Current Interpersonal Conduct/Behavior: appropriate to situation Mental Health Conditions/Symptoms: denies Thought Process Alterations: no deficits noted Values/Beliefs (F) Melanie Importance: Yes Spiritual Care Comment: Jew Patient Coping/Stress Concerns Major Change/Loss/Stressor: hospitalization Patient Personal Strengths: able to adapt, courageous, self-reliant, strong support system, successful coping history Sources Of Support: adult child(sujey), yazidi/scientologist organization, spouse Reaction To Health Status: accepting, hopeful Understanding Of Condition And Treatment: adequate understanding of medical condition Caregiver Coping/Stress Concerns Caregiver Coping/Stress Concerns: No Coping Interventions (Adult) Plan Of Care Reviewed With: spouse, patient Emotional Support: safe, supportive environment facilitated Therapeutic Relationship Promotion: support system enhanced Major Change/Loss/Stressor: hospitalization Advance Directives: Patient does not have any advance directives on file. SW inquired whether or not patient is interested in completing health care power of claim attorney and/or living will paperwork during this admission. SW briefly reviewed the documents, discussed the benefits of completing them, and provided education re: Legal NOK (LNOK). Patient expressed interest in completing the documents, but requested additional time to review the paperwork. Per patient's request, copies of both documents were provided for them to review. Patient informed of SW availability to assist in completing documents during inpatient hospitalization or at a future appointment. SW advised paperwork does NOT have to be completed at [facility] and can be completed in the community by either a public notary or witnessed by two individuals not related to the patient. Patient voiced understanding and stated plan to reach out to SW should they require additional information and/or assistance in completing the documents. Legal NOK: Spouse, Flaca Malik, ph: [phone] Substance Use: Tobacco: None Alcohol: None Recreational Drugs: None Community Resources: Patient reports being connected with [place] [employer]. Patient denies needing linked with additional resources at this time. Home Health / DME: None/None Health Insurance / Rx: [id number] [place] [address] [address]/ [employer] Anticipated Discharge Plan (include transportation): Patient anticipates discharging to home with spouse to transport. Medical Team Considerations: None SW Interventions/Recommendations: Service SW name and contact information placed on white board in patient's room to contact as needed. SW will continue to remain available to provide assistance and support as needed during inpatient stay. GABBY Lai, HUMAN RESOURCES LEADER COL//ACS Produce Laborer For evening (after 4:30 PM - 8 AM) and weekend assistance, please call computer operations supervisor Produce Laborer at [phone] or page [phone]. Colorectal Surgery Daily Progress Note Attending: Miroslava Joiner MD Length of Stay: 2 Post-Operative Day: 2 Days Post-Op S: No acute events. Feeling pretty good. No bowel function. Denies nausea. O:BP 91/51 (BP Location: Left arm, BP Position: Lying) Pulse 61 Temp 97.8 F (36.6 C) (Oral) Resp 14 Ht 1.676 m (5' 6 ) Wt 53.7 kg (118 lb 6.4 oz) SpO2 96% BMI 19.11 kg/m Smoking Status Never Smoker 04699 - 06/06 0559 In: 1560.2 [P.O.:675; I.V.:885.2] Out: 4000 [Urine:4000] PE: General: NAD, lying in bed Pulm: Respirations easy and non labored Abd: soft, nd, approprietly tender, old ostomy site guaze packed Labs: WBC/Hgb/Hct/Plts: 6.72/11.8/35.4/222 (06/06 237) Bun/Creat/Cl/CO2/Glucose: 11/0.67/107/25/88 (06/06 237) Na/K+/Phos/Mg/Ca: 140/3.4/1.7/1.9/8.6 (06/06 237) A/P: Mohamudus Jeimy Malik is a 55 y.o. male 2 Days Post-Op from ileostomy reversal - Awaiting return of bowel function - Advance to GI modified. - Continue reyna today due to retention and difficult placement - multimodal for pain control - ambulate 4 x a day - WTD wound packing to old stoma site FEN: DIET CLEAR LIQUID DIET GI MODIFIED, MIVF; replacing electrolytes as needed DVT prophylaxis: Lovenox Reyna: Yes Lines: PIV Code status: full Level of care: Med Surg Planned Discharge date: pending surgical recovery Dispo- inpatient Patient seen with colorectal team, plan of care discussed, and they are in agreement. ANDRE Hobson Introduced self and role of the senior electrical designer to patient/family. Provided emotional and spiritual support and the patient/family responded by sharing their experience and discussed the following: Experience with illness, expectations, family. Patient/family encouraged to request a senior electrical designer as needed. Chaplains are available in-house 24 hours a day and 7 days a week. For urgent matters in the [facility], please page [phone]. If the request is not urgent, please enter a consult. Consults are responded to within 24 hours. Arcenio Mclean MDiv Mortgage Loan Closer 22/09 Oral Communication Instructor Pager for the [facility] is [phone] 06/05/21 1630 Clinical Encounter Type Visited With Patient;Family Visit Type Introduction Pastoral Time Spent 15 min Spiritual Assessment Spiritual Observation Spirituality helpful Emotional Observation Coping well Hope Observation Specific hope focus Support Observation By Family Interventions Provided Active listening;Supportive presence Facilitated Verbalization of feelings;Sharing hopes & fears Explored Expectations Geotechnician Education Geotechnician Service Available Yes Outcomes Patient Outcomes Articulated purpose/meaning Family Outcomes Articulated purpose/meaning Plan of Care Continue Visiting PRN Colorectal Surgery Daily Progress Note Attending: Miroslava Joiner MD Length of Stay: 1 Post-Operative Day: 1 Day Post-Op S: Emesis overnight. 1L bolus given and straight cath x 1. Asymptomatic bradycardia. No blwe function. O:BP 90/61 (BP Location: Left arm, BP Position: Lying) Pulse 50 Temp 96 F (35.6 C) (Axillary) Resp 16 Ht 1.676 m (5' 6 ) Wt 52.4 kg (115 lb 8 oz) SpO2 98% BMI 18.64 kg/m Smoking Status Never Smoker 06/04 699 - 06/05 658 In: 3189.3 [P.O.:618; I.V.:2571.3] Out: 480 [Urine:475] PE: General: NAD, lying in bed Pulm: Respirations easy and non labored Abd: soft, nd, approprietly tender, old ostomy site guaze packed Labs: WBC/Hgb/Hct/Plts: 8.83/12.1/36.2/260 (06/06 119) Bun/Creat/Cl/CO2/Glucose: 14/0.70/105/23/136 (06/06 119) Na/K+/Phos/Mg/Ca: 136/4.5/4.5/1.8/8.9 (06/06 119) A/P: Mohamud Munson King is a 55 y.o. male 1 Day Post-Op from ileostomy reversal - Awaiting return of bowel function - continue clears due to emesis last night although likely related to anesthesia - Monitor UO, last straight cath was 1am. Will bladder scan and if continues to retain will place reyna - multimodal for pain control - ambulate 4 x a day - WTD wound packing to old stoma site FEN: DIET CLEAR LIQUID No Carbonated Beverages, MIVF; replacing electrolytes as needed DVT prophylaxis: Lovenox Reyna: no Lines: PIV Code status: full Level of care: Med Surg Planned Discharge date: pending surgical recovery Dispo- inpatient Patient seen with colorectal team, plan of care discussed, and they are in agreement. ANDRE Anders Patient seen and examined at bedside. Bradycardic to 45, normotensive. Received a bolus of fluid overnight. Pain well-controlled with current regimen. Patient denies headache, SOB, nausea, emesis, pruritus, and paresthesias. Vitals: 06/05/21 0127 06/05/21 0315 06/05/21 0400 06/05/21 0815 BP: 94/64 90/61 Pulse: (!) 46 52 (!) 45 50 Resp: 12 16 Temp: 96 degrees F (35.6 degrees C) 96 degrees F (35.6 degrees C) TempSrc: Axillary Axillary SpO2: 97% 97% 98% Weight: Height: Physical Examination: GEN: Awake, Reclining in bed, NAD HEENT: NC/AT CHEST: Equal chest rise bilaterally, no labored breathing CV: no DANIEL ABDOMEN: Non-distended EXTREMITIES: Movies all extremities spontaneously SKIN: Intact, no rashes NEURO: Alert and oriented, no gross focal deficit Assessment and Plan: 55 y.o. male s/p Procedure(s) (LRB): LOOP ILEOSTOMY CLOSURE (N/A) on 06/04 with dorcas-op ITM. Patient doing well with minimal adverse effects. APS will sign off at this time. Please call [phone] or page [phone] with any questions or concerns. Nia López MD Anesthesia PGY1 [facility] 5772 Associated attestation - Piyush Daniel MD - 06/05/2021 1:55 PM EDT Acute Pain Service Attending Addendum: I reviewed the case and medical record with the resident. Based on the history and exam, I agree with the medical decision making. Piyush Daniel M.D. Colorectal Surgery Post-Op Check Note S: Mohamud Malik is a 55 y.o. male who is now status post ileostomy reversal. I came to evaluate the patient after coming up to the hospital floor. Patient awake and alert, reports pain present with movement. Patient denies chest pain, shortness of breath, nausea or vomiting. Family at bedside O: BP 110/72 (BP Location: Left arm, BP Position: Lying) Pulse 61 Temp 97.8 F (36.6 C) (Infrared) Resp 18 SpO2 97% Smoking Status Never Smoker : Gen: laying in bed, NAD Lung: no increased work of breathing Cardiac: regular rate and rhythm Abdomen: soft, appropriately tender to palpation, non-distended;old stoma site guaze packed and covered Extremities: no cyanosis or edema, SCDs in place A/P: Mohamud Malik is a 55 y.o. male who is now s/p ileostomy reversal. Patient is recovering well post-operatively. - Out of bed to chair tonight - monitor UO, needs to void by 8 pm. If unable to void, bladder scan and page #[phone] - pain and nausea control as needed - will continue to monitor ANDRE Anders documented in this encounter [facility] 06-06-2021 Note Formatting of this n ote is different from the original. 06/06/21 1146 Referral Information Arrived From operating room Final Discharge Planning Discharge Disposition Home Services at Discharge Wound/drain/line/ostomy-supplies CM/SW AVS Portion Completed Yes Community Agency Name(s) For Handoff [facility] Name For Handoff Will need to send scripts. Phone For Handoff [phone] Plan Plan Home with assistance from , she believes she can do the packing Patient/Family In Agreement With Plan yes Transport Request Mode of Transfer private vehicle Accompanied By family member Ana [facility] Discharge Note Patient discussed in medical rounds for discharge to home when medically stable, maybe in next day or two. PCRM met with the patient/family/spouse to discuss final discharge plan. Services for Discharge Pt and deny need for services at discharge. feels comfortable doing wound packing. Consults with Final Discharge Recommendations None Lines/Tubes/Drains/Wounds/Suppli es Reyna- was replaced. Pt and ok to take care of it if he fails another void trial. Team anticipates it to come out at discharge. Wet to dry wound packing- supplies to be provided by [facility]. Awaiting scripts from team. Medications No barriers anticipated in obtaining discharge medications. No prior authorizations anticipated. Reconciliation of medications to be completed by the medical team. Durable Medical Equipment Was getting ostomy supplies from [facility], now will get wound care supplies. Choice Was Patient Choice Provided: Yes Transportation Transportation will be provided by spouse. Education Discharge education provided by the medical team and updated in the After Visit Summary. Bedside RN to teach wound packing. Follow Up(s) Any follow up requested by the medical team arranged. Appointments in the After Visit Summary. Future Appointments Provider Department Center 07/11/2021 11:45 AM Miroslava Joiner General and Gastrointestinal Surgery Out[facility] [place] Arrive at: Arrive to 1st Floor Registration [facility] Was Ambulatory PCRM added to the Care Team? No Was a handoff made to an Ambulatory PCRM? No- none available for this surgeon The PCRM has updated the patient's nurse regarding the final discharge plan. Risk of Readmission: 5.5 Category Reference: Low: 0% - 5% Medium - Low: 5.1% - 10% Medium - High: 10.1% - 16% High: 16.1% - 100% No other discharge needs have been identified at this time. This plan was developed in collaboration with the patient and caregiver/preferred decision maker. Patient and family are in agreement with final discharge plan. Please refer to AVS and medical record for additional information. Patient instructed to call with questions. PCRM will continue to follow with medical team for any additional discharge planning needs. CHRISTY Samaniego [phone] If any changes to this individualized plan of care during evening and weekend hours and assistance is needed, please page the computer operations supervisor PCRM at [phone]. Addendum @ 12pm: Team reports they will try a void trial today and patient could leave as early as today. Scripts uploaded and Aidin referral created for [facility] for wound care supplies. Nurse updated of plan. [facility] 06-06-2021 Hospital Discharge instructions Chaparrita Parker RN - 06/06/2021 9:15 AM EDT Your Mission Systems Engineer (PCRM) has arranged your appointments for follow up based on your preference of where you would like to continue your care. If you are unable to attend appointments that have been arranged for you, it is your responsibility to call to reschedule at least 48 hours prior to the appointment date. Your PCRM has arranged additional care needs such as home health, infusion services, or durable medical equipment based on your preference and options available by your insurance and local agencies. Your After Visit Summary (AVS) has provided you with instructions for your discharge. It is your responsibility to ask questions if you have any. Please contact your medical care team at the numbers listed if you should have any additional questions. COLORECTAL ADDITIONAL CONTACTS For Concerns During Weekend or Evening Hours: -If you have questions or concerns call and ask the armored cable machine operator to page the residential roofer helper computer operations supervisor. Reminder: [employer] messaging goes unmonitored during evenings and weekends. Any concerns or questions during this time, please call using instructions above. Clinic Office Main Number: [phone] Mission Systems Engineer: Chaparrita Parker ([facility]) SW: Kat Hall ([facility]) ENTEROSTOMAL THERAPY RN + OSTOMY Clinic+ Chaparrita Parker RN - 06/06/2021 9:14 AM EDT Pain Medication A prescription for pain medicine may be sent home with you. Do not drive while taking prescription pain medicine. Eat when taking pain medicines to avoid nausea. When your pain decreases switch to over the counter acetaminophen, like Tylenol. Follow the dose as label directs. ONT Chaparrita Parker RN - 06/06/2021 9:14 AM EDT Activity No Driving for two weeks. No Driving while on pain medications. No lifting over 10 pounds for 6 weeks. No pushing, pulling or straining of abdominal muscles for 6 weeks. Activity as tolerated. Walking is encouraged however no strenuous exercise. You may shower. Do not take a tub bath, go swimming, or use a hot tub until instructed to do so. ONT Chaparrita Parker RN - 06/06/2021 9:14 AM EDT For the next 6 weeks follow the below diet: Low Fiber Diet A diet low in fiber can help keep your stomach and bowels from being irritated. This diet provides foods that are non-irritating and easily digested. If carefully planned, this diet can provide you with most nutrients you need to be healthy. However, over a long period of time, you may find it hard to eat enough fruits and vegetables. Your diet may also be too low in calcium. Talk to your doctor or dietitian about taking a multivitamin or liquid nutritional supplement. Bread Choose breads without seeds or nuts. Foods allowed: Breads, rolls, pancakes, waffles, and crackers made with enriched, refined white flour Soda crackers Andrew Toasts Foods to avoid: Bread containing bran or coarse whole grain Rolls, pancakes, waffles, and crackers made with whole grains Cereals, Pasta, Grains, and Potatoes Choose grain foods with less than 2 grams of dietary fiber per serving. Foods allowed: Refined cooked cereal, such as Cream of Rice, Cream of Wheat, grits, strained oatmeal, Malt-O-Meal Dry cereal, such as cornflakes, puffed rice, Rice Krispies, Honey Smacks, Special K White flour White potatoes, without skin, prepared any way, except fried Mashed sweet potatoes, without skin White rice White pasta Foods to avoid: Whole grain or bran cereal, such as shredded wheat, All Bran, Fiber One, Nutri-Grain, and granola Popcorn Fried potatoes or other substitutes not listed as allowed Brown and wild rice Potato skins Whole wheat pasta products Desserts / Sweets Foods allowed: Chele food and sponge cakes Plain cakes with simple frosting Plain cookies Ice cream, sherbet Fruit Whips Gelatin desserts Puddings Custard Sugar Syrup Honey Jelly Molasses Hard candy Foods to avoid: Rich pastries Cakes and puddings Desserts, which contain nuts, coconut, or fruits that are unapproved All fruit not listed as allowed Jams, preserves, and marmalade Candy with nuts, raisins, or fruits are not allowed Vegetables Foods allowed: Well cooked vegetables Vegetables without skin or seeds Pureed vegetables Vegetable juices Foods to avoid: All raw vegetables, including lettuce Cooked spinach or greens Fruits and Juices Foods allowed: Cooked fruits without skin or seeds Applesauce Pears, peaches Peeled apricots [place] cherries Ripe banana Ripe avocado Fruit juice without pulp Pureed fruits Foods to avoid: Dried fruit Fruit skin and seeds Pineapple juice Meat and Other Protein Foods Foods allowed: Tender beef, mckee, veal, pork Poultry, fish Eggs prepared any way except fried Smooth nut butters (peanut, almond, sunflower seed, etc.) Foods to avoid: Pickled, spiced, smoked meat Shellfish Fried meats, fish, or eggs Tough meats or meats with gristle Sausage Nuts and seeds Beans, peas and lentils Cheese and Milk Products If you are lactose intolerant, avoid milk and foods made with milk. Foods allowed: Cottage cheese Cream cheese Any cheese that has no dried fruits and nuts Yogurt with active cultures Ice cream Note: Include all of these in milk allowance Foods to avoid: Cheese with dried fruits and nuts Yogurt or ice cream with berries, nuts or dried fruits Fats When possible, choose healthier oils like olive or canola oil. Foods allowed: Avocado Butter Cream Margarine Mild salad dressing Vegetable oils Foods to avoid: None Soups Foods allowed: Broth and strained soups made with allowed ingredients Foods to avoid: All other soups Beverages Most people need 8 to 10 cups of fluid each day. If you are lactose intolerant, avoid milk and foods made with milk. Foods allowed: Cow, soy, rice, and almond milk and milk products Choose low fat or fat free milks Coffee Decaffeinated coffee Tea Godley Carbonated beverages Fruit juice (except prune juice) Foods to avoid: All other beverages Miscellaneous Foods allowed: Salt used in moderation Mild spices Gravy Cream sauces Foods to avoid: Rich, highly spiced, or seasoned foods and sauces Fried foods Pickles Olives Relishes 1999 - August 25, 2019, [facility]. This handout is for informational purposes only. Talk with your doctor or healthcare team if you have any questions about your care. For more health information, call the Wiper for [employer] Information at [phone] or email: [email or web address]. Chaparrita Parker RN - 06/06/2021 9:14 AM EDT For Concerns During Weekend or Evening Hours: -If you have questions or concerns call and ask the armored cable machine operator to page the residential roofer helper computer operations supervisor. Reminder: [employer] messaging goes unmonitored during evenings and weekends. Any concerns or questions during this time, please call using instructions above. Clinic Office Main Number: [phone] NOTIFY PHYSICIAN: SYMPTOMS WOUND INFECTION - Increase in pain in or around wound - Change in the amount of drainage - Change in the color of drainage - Change in the odor of drainage - Warmth in the tissues around the wound - Red streaks on the skin near the wound - Fever (temperature greater than 101 degrees F) - Incision separates or opens up UNRELIEVED PAIN + - Increased or unrelieved pain NAUSEA/VOMITING + - Nausea and vomiting that continues for more than 24 hours - Not able to keep medicine down - Not able to keep fluids down SYMPTOMS OF DVT + DVT = Deep Vein Thrombus, or Blood Clot -Any Tender, Swollen, or Reddened Areas from Your Groin to Your Heels -Numbness or Tingling In Groin or Calf -The Skin on Your Leg Looks Pale or Blue or It Feels Cold To Touch -Numbness or Tingling In Groin or Calf -Any Shortness of Breath -Chest Pain -Fever or Chills SYMPTOMS OF GI BLEED + Call your doctor or nurse if you have signs of slow blood loss such as: -Black tarry bowel movements -Cold hands and feet -Weakness -Dizzyness Call 911 if you suddenly have signs of blood loss such as: -Vomiting blood -Fast heart rate -Feeling faint or blacking out -Passing bright red blood from your rectum Chaparrita Parker RN - 06/06/2021 9:15 AM EDT Old Ostomy Site: Pack with Normal Saline (Wet to dry)- twice per day Your wound has packing with normal saline and a gauze or pad covering over the packing. Change the entire dressing twice each day. Change the gauze or pad cover dressing anytime it is wet, soiled or loose. Remove your old dressing and the packing and shower, gently cleaning the wound. Pat the wound dry with a clean towel. Replace the wound dressing as instructed. Pack the wound space loosely with kerlix fluffs that are moistened with normal saline. Cover with dry sterile dressing secured with tape. Chaparrita Parker RN - 06/06/2021 11:54 AM EDT [facility] will provide your wound care supplies Slice Cutting Machine Operator Direct Line: [phone] documented in this encounter [facility] 06-05-2021 Note Formatting of this n ote is different from the original. 06/05/21 1635 Referral Information Arrived From home or self-care Readmission Information Was patient readmitted within 30 Days? No Information Source Information Source patient ;spouse Information Source Name Patient Mohamud and spouse Flaca Information Source Number in person verified contacts Outpatient Providers Outpatient Providers Updated In IHIS Yes Contact Information Mission Systems Engineer/SW Added to Care Team Yes This Supervisor Fertilizer is Primary Mission Systems Engineer/SW No Mission Systems Engineer Name Belkis Hernándezkatty PCRM for Chaparrita PettyPCRM Social Work Contact Name AGNES Stephens Living Environment Lives With spouse;child(sujey), dependent Living Arrangements house Provides Primary Care For no one Primary Care Provided By spouse/significant other Support System Immediate family Able to Return to Prior Arrangements yes Functional Status Patient's Functional Status Prior To This Admission? Independent Are There Status Changes This Admisson? No Changes Observed Since Admission? No Changes Observed Concerns With Patient Being Able To Care For Themselves At Discharge? Has Assistance (Friend, Family, Skilled Provider) Who Is Patient's Primary Contact For Discharge Planning, Education And Care For Discharge? Patient lives with spouse and children and was independent with ADL's CLINICAL DATA PROGRAMMER Can Support Person Meet The Care Needs Of The Patient? Yes Employment/Financial Employed? 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 Employment/Financial Concerns no Source Of Income salary/wages Financial Concerns none Insurance Medical Insurance Verified Yes Contacted Financial Assistance/Updated Medical Team Yes Prescription Coverage Yes Pharmacy updated in IHIS Yes Initial Discharge Planning Home Care Services (CLINICAL DATA PROGRAMMER) No Anticipated discharge disposition Home Anticipated Services at Discharge Outpatient follow up Anticipated Changes Related to Illness none Current Discharge Risk high risk diagnoses (i.e., CHF, Stroke, DM, chronic pain, abdominal pain, nausea and vomiting) Transportation Available car;family or friend will provide Discharge Planning Comments Plan for dsicharge homw. to provide trasport. Home Care Services (CLINICAL DATA PROGRAMMER) Additional Home Care Services (CLINICAL DATA PROGRAMMER) no Assessment/Concerns to be Addressed Concerns To Be Addressed denies needs/concerns at this time PCRM Initial Assessment Met with patient and spouse at bedside to complete the initial assessment. Explained role and function of PCRM in multidisciplinary team. Contact number provided for questions. Demographic information reviewed with patient/family and confirmed as correct. Reason for Admission: Mohamud Malik is a 55 y.o. male 1 Day Post-Op from ileostomy reversal Estimated length of stay: 3-5 days Advanced directives Patient does not have Advanced Directives on File Lines/Drains/Tubes PIV/ Reyna/ incision Initial PCRM Discharge Planning Patient lives in a 2 story farm house with 2-3 kash. Home has bath on 1st floor and Bedroom on 2nd floor. Patient was independent with ADL's CLINICAL DATA PROGRAMMER. Patient has not had any HHC/SNF/DME CLINICAL DATA PROGRAMMER. Final plan will be determined closer to discharge, pending therapy and medical team recommendations. Patient/family verbalized understanding and agreement with the plan of care. Patient/family have no questions at this time. PCRM will continue to follow patient with multidisciplinary team for ongoing assessment of needs and for discharge planning. Medical team updated. Bel[facility]is BELL [facility] Ph: [phone] For evening and weekend discharge assistance please page the computer operations supervisor PCRM at [phone]. [facility] 06-05-2021 Note Formatting of this n ote might be different from the original. This RN paged the team: Patient was bladder scanned with result of 418 mls. Pt unable to void. [facility] 06-05-2021 Note Formatting of this n ote might be different from the original. Pt rested well overnight. Pt was very drowsy throughout the night, responds to voice. Pt did not have any complaints of pain or nausea overnight so far. Pt has stood at the bedside with RN several times throughout the night but even while standing with the gait belt he was closing his eyes and appeared to be dozing off. He is tolerating a regular diet and is free of nausea and vomiting but often needs reminded to drink fluids. Pt with issues urinating on his own overnight and required a st cath. Pt also bradycardic overnight, from what I could gather that is not his baseline but pt seems the poor historian d/t drowsiness. Take down site with some drainage overnight that seemed to slow down as the night went on. T [facility] 06-04-2021 Note Formatting of this n ote might be different from the original. Pre-op Diagnosis: Loop ileostomy after total proctocolectomy for ulcerative colitis with cancer. Post-op Diagnosis: Same Procedure: Loop ileostomy closure Staff: Miroslava Joiner MD, who performed the procedure without resident assistance Anesthesia: General endotracheal EBL: Less than 50 cc Complication: none apparent Counts: Reported as correct. No foreign bodies identified on inspection Statement of Medical Necessity Mr. Malik is a 55 y.o. male with a history of ulcerative colitis. When I met him he had been diagnosed with a sigmoid cancer. His final pathology after total proctocolectomy showed two cancers both of which were early stage. I performed a pouchoscopy which was normal and he is now a few months out from total proctocolectomy and J-pouch and presents for ileostomy closure.. The risks, benefits and alternatives of loop ileostomy closure were explained to him and he desired to proceed. Operation After informed consent was obtained, Mr. Malik was brought to the operating room. he was put to sleep and then positioned supine on the operating table. Pressure points were padded. Sequential compression devices were applied. The abdomen was prepped and draped in the usual sterile fashion. We began by incising the mucocutaneous junction circumferentially. This was carried down through the subcutaneous fat and the ileostomy mobilized off of the fascia. The two ends of the ileostomy were then resected with the SUGEY 80 stapler. The intervening mesentery was taken between clamps and ties. A [id number] functional end-to-end anastomosis was created. A junctional suture was placed. The mesenteric defect was closed with interrupted 3-0 silk suture. The anastomosis was then returned to the abdomen. We then switched to the colorectal closing tray. We closed the posterior sheath with running 0 Vicryl suture. We closed the anterior sheath with interrupted 1. PDS suture. The wound was then packed The patient tolerated the procedure well. he was covered with dry dressings and taken to the recovery room. [facility] 06-04-2021 Note Formatting of this n ote might be different from the original. Paged Dibs - 1323 King - FYI pt with some new serosang drainage on take down site noted during shift change. Also do you want pt to get lovenox tonight or hold since he just came up from PACU? Thanks [id number] Received call back, plan to continue to monitor drainage and hold lovenox for tonight. 2100: paged MD Antonio - 1202 King - FYI pt still unable to urinate. Bladder scan of 240ml. Thanks [id number] Plan to give pt another hour to urinate and get AM labs around 0000. 2247: Messaged MD Antonio via secure chat - Pt still unable to urinate. Has been drinking some but is still pretty drowsy, so he falls back to sleep and forgets to drink. Thanks Messaged read by MD. Order for fluid bolus placed. I also messaged MD Antonio back that I looked through his chart. Doesn't look like he had a reyna so that means he hasn't urinated since before OR, if that. I then confirmed that he did not want to st cath the pt at this time. 2345: MD at bedside. He stated to allow bolus to finish and if pt still unable to urinate in 30min to an hour I am to notify and we will st cath. 0043: Notified MD Antonio via secure chat that bolus was finished and pt was still unable to urinate. Order to st cath placed. 0119: Messaged MD Antonio via secure chat - 475ml from the st cath. Took two attempts and was a bit bloody and urine was very concentrated and karo. Also his HR drops down to around 45 when sleeping. Comes up the the 50s to 60s when I'm in the room and he's awake. Message seen by MD Antonio, no additional orders at this time. [facility] 06-04-2021 Note Formatting of this n ote might be different from the original. 1645- Pt arrived to [address] [place] [address] without any complications. Oriented pt to staff, room and equipment. Call light left within reach. [facility] 06-04-2021 Note Formatting of this n ote is different from the original. 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.13] POST OPERATIVE DIAGNOSIS Post-Op Diagnosis Codes: * Ileostomy dysfunction [K94.13] PROCEDURE PERFORMED Procedure(s) (LRB): LOOP ILEOSTOMY CLOSURE (N/A) PRIMARY CLOSURE No INTRAOPERATIVE FINDINGS No significant abnormalities SURGEON Surgeon(s) and Role: * Miroslava Joiner MD - Primary ANESTHESIOLOGIST Anesthesiologist: Neto Mcnally MD; Zachary Weiss MD CRM MANAGER: Perlita Lemon APRN-CRM MANAGER Contract Administration Manager Assisting: James Boykin MD SURGICAL STAFF [employer] Safety Engineer: Genesis Young RN; Ynes Bingham RN Sales Promotion Representative: Kinjal Ortiz COMPLICATIONS None ESTIMATED BLOOD LOSS Minimal SPECIMENS be;pw ID Type Source Tests Collected by Time Destination 1 : Ileostomy Permanent SURG PATH SURG PATH REQUEST Miroslava Joiner MD 06/04/2021 [id number] Miroslava Joiner MD June 04, 2021 3:19 PM [facility] 06-04-2021 History and physical note HPI: 55 y.o. yo male here for ileostomy closure New symptoms: none Past Medical History: Diagnosis Date Colon cancer 10/2020 Ulcerative colitis diagnosed in the 80s- no surgery Past Surgical History: Procedure Laterality Date ENDOSCOPY SMALL INTESTINE POUCH DIAGNOSTIC N/A 04/22/2021 Laterality: N/A; Surgeon: Miroslava Joiner MD; Location: [facility] ENDOSCOPY COLOPROCTECTOMY TOTAL W/ LOOP ILEOSTOMY OR CREATION ILEAL RESERVOIR LAPAROSCOPIC N/A 02/12/2021 Laterality: N/A; Surgeon: Miroslava Joiner MD; Location: [facility] MAIN OR SIGMOIDOSCOPY DIAGNOSTIC N/A 02/04/2021 Laterality: N/A; Surgeon: Miroslava Joiner MD; Location: [facility] ENDOSCOPY HIP REPLACEMENT Left 2006 COLONOSCOPY DIAGNOSTIC Nov 20202001 Social History Tobacco Use Smoking status: Never Smoker Smokeless tobacco: Never Used Vaping Use Vaping Use: Never used Substance Use Topics Alcohol use: Not Currently Drug use: Not Currently ROS: CP: No SOB: No has No Known Allergies. Exam Smoking Status Never Smoker There is no height or weight on file to calculate BMI. General appearance: well Lungs: ctab Heart: rrr Abdomen: soft A/ doing well after TPC, here for loop stoma closure P/ Ileostomy closure today [facility] 06-04-2021 History and physical note HPI: 55 y.o. yo male here for ileostomy closure New symptoms: none Past Medical History: Diagnosis Date Colon cancer 10/2020 Ulcerative colitis diagnosed in the 80s- no surgery Past Surgical History: Procedure Laterality Date ENDOSCOPY SMALL INTESTINE POUCH DIAGNOSTIC N/A 04/22/2021 Laterality: N/A; Surgeon: Miroslava Joiner MD; Location: [facility] ENDOSCOPY COLOPROCTECTOMY TOTAL W/ LOOP ILEOSTOMY OR CREATION ILEAL RESERVOIR LAPAROSCOPIC N/A 02/12/2021 Laterality: N/A; Surgeon: Miroslava Joiner MD; Location: [facility] MAIN OR SIGMOIDOSCOPY DIAGNOSTIC N/A 02/04/2021 Laterality: N/A; Surgeon: Miroslava Joiner MD; Location: [facility] ENDOSCOPY HIP REPLACEMENT Left 2005 COLONOSCOPY DIAGNOSTIC Nov 20202001 Social History Tobacco Use Smoking status: Never Smoker Smokeless tobacco: Never Used Vaping Use Vaping Use: Never used Substance Use Topics Alcohol use: Not Currently Drug use: Not Currently ROS: CP: No SOB: No has No Known Allergies. Exam Smoking Status Never Smoker There is no height or weight on file to calculate BMI. General appearance: well Lungs: ctab Heart: rrr Abdomen: soft A/ doing well after TPC, here for loop stoma closure P/ Ileostomy closure today documented in this encounter [facility] 01-08-2021 Note Attempted calling [facility] for a second time to schedule a consultation with Dr. Marylin Albert for a malignant neoplasm of colon. Patient referred by [facility]. Previously attempted contacting patient on January 01, 2021 at 9:20 am to schedule an appointment. He did not answer but I was able to leave him a message to contact our office at [phone] to schedule a consultation. Patient's records have been scanned into [employer] for review. I will need patient's insurance information as it was not included and I will need to make sure that we are in-network with his insurance company prior to scheduling consultation. Tessa Rascon [place] to Dr. Coulter [facility] Diagnosis Carcinoma of sigmoid colon- Primary Malignant neoplasm of sigmoid colon [facility] Diagnosis Ulcerative pancolitis with other complication- Primary Anal pain Anal or rectal pain Diarrhea due to malabsorption Ulcerative pancolitis with other complication Anal pain Anal or rectal pain [facility] Diagnosis Ulcerative pancolitis with other complication Anal pain Anal or rectal pain [facility] Diagnosis History of ulcerative colitis Personal history of other diseases of digestive system [facility]* Auth/Cert Specialty Diagnoses / Procedures Referred By Contluna t Referred To Contact Diagnoses Ileostomy dysfunction Ileostomy dysfunction [K94.13] Procedures PA CLOSE ENTEROSTOMY LOOP ILEOSTOMY CLOSURE Referral ID Status Reason Start Date Expiration Date Visits Re quested Visits Authorized [id number] 1 1 [facility]* Auth/Cert Specialty Diagnoses / Procedures Referred By Contac t Referred To Contact Diagnoses Ulcerative pancolitis with other complication Anal pain Ulcerative pancolitis with other complication [K51.018] Anal pain [K62.89] Procedures PA SURG DIAGNOSTIC EXAM, ANORECTAL PA NDSC EVAL INTSTINAL POUCH DX W/COLLJ SPEC SPX EXAM UNDER ANESTHESIA ANORECTAL ENDOSCOPY SMALL INTESTINE POUCH DIAGNOSTIC Miroslava Joiner MD [address] [facility] [address] [place] [address] [facility] [address] [place] [address] Referral ID Status Reason Start Date Expiration Date Visits Re quested Visits Authorized [id number] 1 1 [facility] Summary Purpose Family History No Family History Records FoundNo Family History Records FoundNo Family History Records Found Advance Directives No Advanced Directives Records FoundLatest Code Status on File Code Status Date Activated Date Inactivated Comments Full Code 02/12/2021 6:09 PM Latest Code Status on File Code Status Date Activated Date Inactivated Comments Full Code 02/12/2021 6:09 PM Latest Code Status on File Code Status Date Activated Date Inactivated Comments Full Code 02/12/2021 6:09 PM Latest Code Status on File Code Status Date Activated Date Inactivated Comments Full Code 02/12/2021 6:09 PM Reason for Referral Specialty Diagnoses / Procedures Referred By Contac t Referred To Contact Procedures PLATELET MONITORING PER PROTOCOL Miroslava Joiner MD [address] [facility] [place] [address] [place] [address] Referral ID Status Reason Start Date Expiration Date V isits Requested Visits Authorized [id number] New Request 06/04/2021 06/29/2022 1 1 Specialty Diagnoses / Procedures Referred By Contac t Referred To Contact Procedures DVT/VTE RISK ASSESSMENT Miroslava Joiner MD [address] [facility] [place] [address] [place] [address] Referral ID Status Reason Start Date Expiration Date V isits Requested Visits Authorized [id number] New Request 06/04/2021 06/29/2022 1 1 Specialty Diagnoses / Procedures Referred By Contac t Referred To Contact Diagnoses History of ulcerative colitis Procedures POUCHOSCOPY PA NDSC EVAL INTSTINAL POUCH DX W/COLLJ SPEC SPX Grant Carr, INSULATION POWER UNIT TENDER-ADMINISTRATIVE OFFICE ASSISTANT [address] [facility] [address] [place] [address] Referral ID Status Reason Start Date Expiration Date V isits Requested Visits Authorized [id number] New Request 01/02/2023 01/27/2024 1 1 Additional Source Comments (unrecognized sect ion and content) No Status Records FoundNo Status Records FoundNo Status Records Found INFORMATION SOURCE (unrecogn ized section and content) DATE CREATED AUTHOR AUTHOR'S ORGANIZ ATION 04/10/2021 [employer] DATE CREATED AUTHOR AUTHOR'S ORGANIZ ATION 02/10/2023 [facility] Scheduled Active and Recently Administ ered Medications (unrecognized section and content) Continuous Medication Order 06/04/2021 06/05/2021 06/06/2021 lactated ringers IV solution (CANCELED) Intravenous, at 100 mL/hr, CONTINUOUS, Starting on Thu06/05/21 at 0245, Until Thu06/05/21 at 1618 0343 ($$New Bag$$ - Provider: Liss Anderson RN)0433 (Rate/Dose Verify - Provider: Liss Anderson RN)0653 (Rate/Dose Verify - Provider: Liss Anderson RN)0921 (Rate/Dose Change - Provider: Crissy Pedro RN)0921 (Rate/Dose Verify - Provider: Crissy Pedro RN)1438 (Rate/Dose Change - Provider: Crissy Pedro RN)1519 (Rate/Dose Change - Provider: Crissy Pedro RN)1525 (Rate/Dose Change - Provider: Crissy Pedro RN)1537 ($$New Bag$$ - Provider: Crissy Pedro RN)1711 (Stopped - Provider: Crissy Pedro RN)1714 (Stopped - Provider: Crissy Pedro RN) sodium chloride 0.9% IV solution (CANCELED) Intravenous, at 50 mL/hr, CONTINUOUS, Starting on Thu06/04/21 at 1300, Until Thu06/04/21 at 1635, Pre-op/Pre-Proc 1333 ($$New Bag$$ - Provider: Lidia Iniguez RN)1900 (Stopped - Provider: Liss Anderson RN - Comment: Running KVO at start of my shift, unsure of actual stop time.) PRN Medication Order 06/04/2021 06/05/2021 06/06/2021 HYDROmorphone (DILAUDID) injection 0.2 mg (CANCELED) 0.2 mg, Intravenous, EVERY 5 MINUTES NEEDED, Starting on Thu06/04/21 at 1520, Until Thu06/04/21 at 1635, Moderate Pain, Severe Pain, Use as initial dose. Higher dose may be administered if lower dose did not result in adverse effects (RR<10, decrease in level of consciousness) and was previously documented as ineffective. May give a total of 4mg in PACU., Recovery 1548 (Given - Provider: Rose Borden RN)1553 (Given - Provider: Rose Borden RN) melatonin tablet 6 mg 6 mg, Oral, DAILY AT BEDTIME NEEDED, Starting on Thu06/04/21 at 1643, Until Thu06/06/21 at 2020, Insomnia, Post-op/Post-Proc morphine (PF) 200 mcg in sodium chloride (PF) 0.9 % 1 ml (total volume) intrathecal injection (COMPLETED) 200 mcg, Intrathecal, SMALL ELECTRIC ENGINE TECHNICIAN TO PROCEDURE, 1 dose, Starting on Thu06/04/21 at 1253, Until Discontinued, Other, To be administered in dorcas-op setting by anesthesia personnel or in the OR by attending physician for spinal procedures., To be administered in dorcas-op setting by anesthesia personnel or by attending physician for spinal procedures. Intra Op/Intra-Proc, sign and hold., Intra-op/Intra-Proc 1355 (Given - Provider: James Boykin MD) ondansetron 4mg/2ml (ZOFRAN) injection 4 mg 4 mg, Intravenous, EVERY 6 HOURS NEEDED, Starting on Thu06/05/21 at 1643, Until Thu06/06/21 at 2020, Nausea / Vomiting, 2nd Line Nausea / Vomiting, Post-op/Post-Proc oxyCODONE (ROXICODONE) tablet 5 mg 5 mg, Oral, EVERY 4 HOURS NEEDED, Starting on Thu06/04/21 at 1643, Until Thu06/06/21 at 1642, Mild Pain, Moderate Pain, Severe Pain, Use as initial dose. Higher dose may be administered if lower dose was previously documented as ineffective and did not result in adverse effects (RR<10, decrease in level of consciousness)., Post-op/Post-Proc oxyCODONE (ROXICODONE) tablet 5 mg(Linked Group 1) 5 mg, Oral, EVERY 4 HOURS NEEDED, Starting on Thu06/06/21 at 2043, Until Thu06/06/21 at 2020, Moderate Pain, Severe Pain, Use as initial dose. Higher dose may be administered if lower dose was previously documented as ineffective and did not result in adverse effects (RR<10, decrease in level of consciousness)., Post-op/Post-Proc oxyCODONE HCl (ROXICODONE) tablet 10 mg 10 mg, Oral, EVERY 4 HOURS NEEDED, Starting on Thu06/04/21 at 1643, Until Danni 06/06/21 at 1642, Mild Pain, Moderate Pain, Severe Pain, Higher dose may be administered if lower dose was previously documented as ineffective and did not result in adverse effects (RR<10, decrease in level of consciousness). Decrease back to lower dose if patient has adverse effects, or no PRN used in previous 12 hours., Post-op/Post-Proc oxyCODONE HCl (ROXICODONE) tablet 10 mg(Linked Group 1) 10 mg, Oral, EVERY 4 HOURS NEEDED, Starting on Thu06/06/21 at 2043, Until Danni 06/06/21 at 2020, Moderate Pain, Severe Pain, Higher dose may be administered if lower dose was previously documented as ineffective and did not result in adverse effects (RR<10, decrease in level of consciousness). Decrease back to lower dose if patient has adverse effects, or no PRN used in previous 12 hours., Post-op/Post-Proc phenol (CHLORASEPTIC) 1.4 % oral spray 1 spray 1 spray, Mouth/Throat, NEEDED, Starting on Thu06/04/21 at 1643, Until Danni 06/06/21 at 2020, Sore Throat, Patient may self-administer., Post-op/Post-Proc prochlorperazine (COMPAZINE) injection 10 mg(Linked Group 2) 10 mg, Intravenous, EVERY 6 HOURS NEEDED, Starting on Thu06/04/21 at 1643, Until Danni 06/06/21 at 2020, Nausea / Vomiting, moderate nausea and vomiting, 1st line (if NOT tolerating PO), For IV route: dilute dose with 10mL normal saline and give by slow IV push at a rate of 5mg/min. Maximum of 40mg/day., Post-op/Post-Proc 1804 (Given - Provider: Aislinn Liao RN) prochlorperazine (COMPAZINE) tablet 10 mg(Linked Group 2) 10 mg, Oral, EVERY 6 HOURS NEEDED, Starting on Thu06/04/21 at 1643, Until Danni 06/06/21 at 2020, Nausea / Vomiting, Refractory Nausea Vomiting, 1st line (if tolerating PO), Post-op/Post-Proc 1804 (See Alternative - Provider: Aislinn Keshawn, RN) Linked Groups Order Group 1: oxyCODONE (ROXICODONE) tablet 5 mgJump to med 5 mg, Oral, EVERY 4 HOURS NEEDED, Starting on Thu06/06/21 at 204, Until Thu06/06/21 at 2019, Moderate Pain, Severe Pain
Use as initial dose. Higher dose may be administered if lower dose was previously documented as ineffective and did not result in adverse effects (RR<10, decrease in level of consciousness).
Post-op/Post-Proc Or oxyCODONE HCl (ROXICODONE) tablet 10 mgJump to med 10 mg, Oral, EVERY 4 HOURS NEEDED, Starting on Danni 06/06/21 at 204, Until Thu06/06/21 at 2019, Moderate Pain, Severe Pain
Higher dose may be administered if lower dose was previously documented as ineffective and did not result in adverse effects (RR<10, decrease in level of consciousness). Decrease back to lower dose if patient has adverse effects, or no PRN used in previous 12 hours.
Post-op/Post-Proc Group 2: prochlorperazine (COMPAZINE) injection 10 mgJump to med 10 mg, Intravenous, EVERY 6 HOURS NEEDED, Starting on Thu06/04/21 at 1643, Until Thu06/06/21 at 2019, Nausea / Vomiting, moderate nausea and vomiting, 1st line (if NOT tolerating PO)
For IV route: dilute dose with 10mL normal saline and give by slow IV push at a rate of 5mg/min. Maximum of 40mg/day.
Post-op/Post-Proc Or prochlorperazine (COMPAZINE) tablet 10 mgJump to med 10 mg, Oral, EVERY 6 HOURS NEEDED, Starting on Thu06/04/21 at 1643, Until Thu06/06/21 at 2019, Nausea / Vomiting, Refractory Nausea Vomiting, 1st line (if tolerating PO), Post-op/Post-Proc Scheduled Medication Order 02/26/2022 02/27/2022 02/28/2022 Acetaminophen (TYLENOL) tablet 650 mg 650 mg, Oral, ONCE, 1 dose, On Thu02/28/22 at 0800, Maximum dose of acetaminophen is 4000 mg from all sources in 24 hours., Recovery 0800 (Canceled Entry - Provider: System Discharge - Comment: Automatically canceled at discontinue of medication order) oxyCODONE (ROXICODONE) tablet 5 mg 5 mg, Oral, ONCE, 1 dose, On Thu02/28/22 at 0800, Recovery 0800 (Canceled Entry - Provider: System Discharge - Comment: Automatically canceled at discontinue of medication order) Continuous Medication Order 02/26/2022 02/27/2022 02/28/2022 Lactated ringers IV solution Intravenous, at 20 mL/hr, CONTINUOUS, Starting on Thu02/28/22 at 0615, Until Thu02/28/22 at 1051, Pre-op/Pre-Proc 0648 ($$New Bag$$ - Provider: Wanda Jauregui RN)0713 (Paused - Provider: MT Mitchell - Comment: Switch to gravity)0714 (Restarted - Provider: MT Mitchell)0749 (Stopped - Provider: MT Mitchell) PRN Medication Order 02/26/2022 02/27/2022 02/28/2022 bupivacaine-epinephrine (MARCAINE;SENSORCAINE W/ EPI) 0.5% -[id number] injection (CANCELED) NEEDED, Starting on Thu02/28/22 at 0740, Until Thu02/28/22 at 0753, Intra-op/Intra-Proc 0740 (Given - Provid er: Miroslava Joiner MD - Comment: injected to surgical site per surgeon) fentaNYL (SUBLIMAZE) injection 25 mcg 25 mcg, Intravenous, Administer over 2 Minutes, EVERY 5 MINUTES NEEDED, Starting on Thu02/28/22 at 0750, Until Thu02/28/22 at 1051, Moderate Pain, Severe Pain, Additional dose may be administered only if first dose did not result in adverse effects (RR<10, decrease in level of consciousness) and was previously documented as ineffective. May give a total of 100mcg in PACU. If pain unrelieved after 100mcg, notify Anesthesia provider., Recovery Haloperidol lactate (HALDOL) injection 1 mg 1 mg, Intravenous, ONCE NEEDED, 1 dose, Starting on Thu02/28/22 at 0750, Until Thu02/28/22 at 1051, FIRST line Nausea/vomiting,, If patient still experiencing nausea/vomiting after 1st dose use 2nd line antiemetic, Recovery lidocaine 1% buffered in sodium bicarbonate 1-8.4 % injection SOSY 1 mL (COMPLETED) 1 mL, Intradermal, ONCE NEEDED, 1 dose, Starting on Thu02/28/22 at 0612, Until Thu02/28/22 at 2359, Other, Use for peripheral IV insertion, Use when inserting peripheral IV, Pre-op/Pre-Proc 0648 (Given - Provid er: Wanda Jauregui RN) Ondansetron 4mg/2ml (ZOFRAN) injection 4 mg 4 mg, Intravenous, ONCE NEEDED, 1 dose, Starting on Thu02/28/22 at 0750, Until Thu02/28/22 at 1051, Nausea / Vomiting, SECOND Line, Use if patient still experiencing nausea/vomiting after 1st line antiemetic, Recovery Care Teams (unrecognized sec tion and content) Storekeeper Engineering Relationship Specialty Start Date End Date Sage Taylor MD [address] [place] [address] PCP - General Family Medicine 01/21/21 Storekeeper Engineering Relationship Specialty Start Date End Date Sage Taylor MD [address] [place], [place] [address] PCP - General Family Medicine 01/21/21 Storekeeper Engineering Relationship Specialty Start Date End Date Sage Taylor MD [address] [place], [place] [address] PCP - General Family Medicine 01/21/21 Storekeeper Engineering Relationship Specialty Start Date End Date Sage Taylor MD [address] [place], [place] [address] PCP - General Family Medicine 01/21/21 Reason for Visit (unrecogniz ed section and content) Reason Comments Follow-up 06/04/2021 LOOP ILEOST ZULEMA CLOSUREHistory of UC and Sigmoid cancer. Pt has ongoing anal pain, diarrhea under control. Occasional rectal bleeding. Specialty Diagnoses / Procedures Referred By Rima t Referred To Contact Diagnoses History of ulcerative colitis Procedures POUCHOSCOPY PA NDSC EVAL INTSTINAL POUCH DX W/COLLJ SPEC SPX Grant Carr, INSULATION POWER UNIT TENDER-ADMINISTRATIVE OFFICE ASSISTANT [address] [place] [address] Referral ID Status Reason Start Date Expiration Date V isits Requested Visits Authorized [id number] New Request 01/02/2023 01/27/2024 1 1 FOR RECORDS PERTAINING TO PATIENTS WHO ARE OR HAVE BEEN ENROLLED IN A CHEMICAL DEPENDENCY/SUBSTANCEABUSE PROGRAM, SOME INFORMATION MAY BE OMITTED. This clinical summary was aggregated from multiple sources. Caution should be exercised in using it in the provision of clinical care. This summary normalizes information from multiple sources, and as a consequence, information in this document may materially change the coding, format and clinical context of patient data. In addition, data may be omitted in some cases. CLINICAL DECISIONS SHOULD BE BASED ON THE PRIMARY CLINICAL RECORDS. [employer] provides no warranty or guarantee of the accuracy or completeness of information in this document.
[2023-03-31 12:19] LABS: Absolute Lymphocyte Count 0.86 X10^3/uL (0.83-4.51); Basophil# 0.04 X10^3/uL; Basophil% 0.7 % (0-1); Hematocrit 33.8 % (40-54); Hemoglobin 11.1 g/dL (13.0-16.5); Lymphocyte # 0.86 X10^3/ul (0.83-4.51); Lymphocyte % 15.9 % (19-41); Mean Corp Hgb Conc 32.8 g/dL (32-36); Mean Corpuscular Hgb 31.6 pg (27.0-32.0); Mean Corpuscular Volume 96.3 fL (80-94); Monocyte# 0.51 X10^3/uL; Monocyte% 9.4 % (0-10); NRBC Flagged by Analyzer 0 % (0-5); Neutrophil # 3.98 X10^3/uL (2.7-7.7); Neutrophil % 73.4 % (47-70); Platelet Count 281 K/mm3 (150-450); RBC Distribution Width CV 15.9 % (11.6-14.6); RBC Distribution Width SD 55.6 fl (35.1-43.9); Red Blood Count 3.51 M/mm3 (4.6-6.2); White Blood Count 5.4 K/mm3 (4.4-11.0)
[2023-03-31 12:25] LABS: Erythrocyte Sedimentation Rate 32 mm/hr (0-20)
[2023-03-31 12:33] LABS: International Normalized Ratio 1.2; Prothrombin Time (Protime)PT. 15.6 SECONDS (11.7-14.9)
[2023-03-31 13:09] LABS: ALB/GLOB Ratio 0.8 RATIO (0.9-2.4); AST(SGOT) 110 U/L (15-37); Alanine Aminotransfer ALT/SGPT 98 U/L (16-61); Albumin, Serum 3.2 g/dL (3.2-5.0); Alkaline Phosphatase 727 U/L (45-117); Anion Gap 5 (5-15); BUN 17 mg/dL (7-18); BUN/Creat Ratio 22.7 RATIO (10-20); CRP 6.45 mg/L (0.0-3.0); Chloride 107 mmol/L (98-107); Cholesterol 225 mg/dL (200); Creatinine, Serum 0.75 mg/dL (0.70-1.30); EST Glomerular Filtration Rate 113 mL/min (>60); Est Glom Filt Rate - Afr Amer 137 mL/min (>60); Ferritin 99 ng/mL (26-388); Free T3 2.6 pg/mL (2.18-3.98); Globulin 3.9 g/dL (2.2-4.2); Glucose 88 mg/dL (74-106); High Density Lipoprotein 57 mg/dL; Iron Binding Capacity,Total 308 ug/dL (250-450); LDH 206 U/L (87-241); Potassium 4.1 mmol/L (3.5-5.1); Protein, Total 7.1 g/dL (6.4-8.2); Sodium Level 137 mmol/L (136-145); Thyroid Stim Hormone (TSH) 1.06 uIU/mL (0.358-3.74); Triglycerides 93 mg/dL; Very Low Density Lipoprotein 19 mg/dL (5-40)
[2023-03-31 13:14] LABS: HIV - WCH Non-Reactive (Nonreactive); Vitamin B12 721 pg/mL (211-911)
[2023-03-31 13:24] LABS: Hemoglobin A1c 5.1 % (3.8-5.6)
[2023-04-03 14:09] LABS: Anti-Centromere B Ab <0.2 AI (0.0-0.9); Anti-Chromatin <0.2 AI (0.0-0.9); Anti-Jo <0.2 AI (0.0-0.9); Anti-Mitochondrial AB <20.0 Units (0.0-20.0); Anti-Scleroderma-70 AB <0.2 AI (0.0-0.9); Anti-dsDNA Ab 6 IU/mL (0-9); RNP Ab <0.2 AI (0.0-0.9); SJOGREN'S Anti-SS-A test < 0.2 AI (0.0-0.9); SJOGREN'S Anti-SS-B test < 0.2 AI (0.0-0.9); Smith Ab <0.2 AI (0.0-0.9); Vitamin D 1,25-Dihydroxy 40.3 pg/mL (24.8-81.5)
[2023-04-06 09:07] LABS: AFP, Tumor Marker 3.3 ng/mL (0.0-8.4); Angiotensin Convert Enzyme 45 U/L (14-82); Anti-Smooth Muscle ABS 11 Units (0-19); Carbohydrate Ag 19-9 2261 15 U/mL (0-35); Carcinoembryonic Antigen 2139 2.9 ng/mL (0.0-4.7); Ceruloplasmin 29.6 mg/dL (16.0-31.0); Copper, Serum or Plasma 217 ug/dL (69-132); Cytoplasmic Ab (C-ANCA) <1:20 titer (Neg:<1:20); Endomysial Antibody IgA Negative (Negative); HEPATITIS B SURFACE AG Negative (Negative); Haptoglobin 107 mg/dL (29-370); Hep C Antibodies Non Reactive (Non Reactive); Hepatitis A IgM Antibody Negative (Negative); Hepatitis B Core AB IgM Negative (Negative); Immunoglobulin A 671 mg/dL (90-386); Immunoglobulin E 475 IU/mL (6-495); Immunoglobulin G 1058 mg/dL (603-1613); Immunoglobulin M 142 mg/dL (20-172); Perinuclear Ab (P-ANCA) <1:20 titer (Neg:<1:20); Transferrin 294 mg/dL (177-329); t-Transglutaminase IgA 2 U/mL (0-3)
== END | disposition home or self-care (01) ==
PROVIDERS: PCP Family Medicine; Referring Provider Internal Medicine Gastroenterology; Visit Provider Internal Medicine Gastroenterology
DX: R74.01 Elevation of levels of liver transaminase levels (principal); K51.90 Ulcerative colitis, unspecified, without complications; C18.7 Malignant neoplasm of sigmoid colon
CPT/HCPCS: 36415; 80053; 80061; 80074; 82105; 82140; 82164; 82378; 82390; 82525; 82607; 82652; 82728; 82784; 82785; 83010; 83036; 83516; 83550; 83615; 84439; 84443; 84466; 84481; 85025; 85610; 85652; 86140; 86225; 86235; 86255; 86256; 86301; 86703

== ENCOUNTER → 2023-09-24 | Outpatient (CLI) | payer OTHER, SELFPAY ==
[2023-09-24 09:46] LABS: Absolute Lymphocyte Count 1.01 X10^3/uL (0.83-4.51); Absolute Neutrophil Count 3.9 X10^3/uL (2.0-7.7); Basophil# 0.06 X10^3/uL; Basophil% 1.1 % (0-1); Eosinophil# 0.02 X10^3/uL; Eosinophils% 0.4 % (0-5); Hematocrit 37.4 % (40-54); Hemoglobin 12.7 g/dL (13.0-16.5); Lymphocyte # 1.01 X10^3/ul (0.83-4.51); Lymphocyte % 18.1 % (19-41); Mean Corpuscular Hgb 32.1 pg (27.0-32.0); Mean Corpuscular Volume 94.4 fL (80-94); Mean Platelet Vol. 11.3 fl (6.2-12.0); Monocyte% 10.8 % (0-10); NRBC Flagged by Analyzer 0 % (0-5); Neutrophil # 3.87 X10^3/uL (2.7-7.7); Neutrophil % 69.2 % (47-70); Platelet Count 328 K/mm3 (150-450); RBC Distribution Width SD 58.5 fl (35.1-43.9); Red Blood Count 3.96 M/mm3 (4.6-6.2); White Blood Count 5.6 K/mm3 (4.4-11.0)
[2023-09-24 10:10] LABS: Ferritin 105 ng/mL (26-388); Iron 127 ug/dL (65-175); Iron Binding Capacity,Total 365 ug/dL (250-450); PERCENT IRON SATURATION 34.8 % (15.0-55.0)
[2023-09-24 17:43] LABS: Xtra Tube EP Lab EXTRA TUBE
[2023-09-25 04:08] LABS: Carcinoembryonic Antigen 3.6 ng/mL (0.0-4.7)
== END | disposition home or self-care (01) ==
LOC: PAVLAB 09:31
PROVIDERS: PCP Family Medicine; Visit Provider Internal Medicine Hematology & Oncology
DX: C18.7 Malignant neoplasm of sigmoid colon (principal); D50.0 Iron deficiency anemia secondary to blood loss (chronic)
CPT/HCPCS: 36415; 82378; 82728; 83540; 83550; 85025

== ENCOUNTER → 2023-11-03 | Outpatient (CLI) | payer OTHER, SELFPAY ==
--- NOTE | 2023-11-03 07:30 | MRI_ITS ---
ACR Level 3 findings have been noted. An addendum which confirms receipt of the report will follow. INDICATION: jaundice and cholestatic hepatitis with weight los EXAMINATION: MRI - MR MRCP and Abdomen W/O Contrast TECHNIQUE: Axial and coronal T2 sequences obtained with and without fat saturation. Coronal 3-D MRCP obtained with thick slab rotational 3-D postprocessing reconstructions. IV Contrast Dosage and Agent: None. COMPARISON: CT abdomen and pelvis September 30, 2022, February 18, 2021 FINDINGS: LIVER: Diffuse hepatic steatosisd without evidence of discrete mass on this noncontrast exam. There is mild peripheral biliary ductal dilatation with posterior duct at the hepatic hilum on MRCP . GALLBLADDER AND BILIARY TREE: Gallbladder is well filled with mild wall thickening and trace pericholecystic fluid at the fundus. Small dependent fundal gallbladder stone noted.. Common hepatic duct is not appreciable within the liver, measuring 3.5 mm just distal to the liver for approximately 2 cm before again terminating just distal to the cystic duct insertion. The duct remains imperceptible along the proximal pancreatic segment artery, reconstituting for the distal 3 cm of the pancreatic segment. No rounded intraluminal filling defect is seen. No extrahepatic ductal dilatation. PANCREAS: Homogeneous pancreatic parenchyma without distinct pancreatic mass. No pancreatic duct dilation. Peripancreatic inflammation. SPLEEN: Non-enlarged. ADRENAL GLANDS: No nodules. KIDNEYS: Normal renal size and position. No hydronephrosis. No mass. LYMPH NODES: No enlarged periportal or retroperitoneal lymph nodes. PERITONEUM: No ascites or fluid collection. VESSELS: Aorta is non-dilated. LOWER CHEST: No pleural effusion. MRI/MRCP Abdomen without Contrast IMPRESSION: Mild gallbladder distention with small gallstone, borderline wall thickening and trace adjacent edema along the fundus of the gallbladder. Correlate for clinical evidence of cholecystitis. Nuclear medicine hepatobiliary scan could further evaluate if clinically ambiguous. Diffuse mild peripheral intrahepatic biliary dilatation with paucity of hilar duct concerning for occult hepatic hilar mass. Recommend MRI liver with and without IV contrast and delayed phase to further evaluate for malignancy. Nonspecific lack of extrahepatic ductal visualization along the proximal pancreatic segment with normal distal reconstitution of uncertain significance, possibly secondary to a diminutive caliber of the duct and low [id number], though occult pancreatic mass is not excluded. Recommend attention to pancreatic head on multiphase liver MRI recommended above. Consider ERCP. Electronically Signed: Tj Watkins MD at 9:06 EDT ,
== END | disposition home or self-care (01) ==
PROVIDERS: PCP Family Medicine; Referring Provider Internal Medicine Gastroenterology; Visit Provider Internal Medicine Gastroenterology
DX: R19.7 Diarrhea, unspecified (principal); C18.7 Malignant neoplasm of sigmoid colon; K51.019 Ulcerative (chronic) pancolitis with unspecified complications; R74.01 Elevation of levels of liver transaminase levels; R79.89 Other specified abnormal findings of blood chemistry; D50.0 Iron deficiency anemia secondary to blood loss (chronic); R63.4 Abnormal weight loss; R17 Unspecified jaundice
CPT/HCPCS: 74181

== ENCOUNTER → 2023-11-18 | Outpatient (CLI) | payer OTHER, SELFPAY ==
[2023-11-20 12:10] LABS: Carbohydrate Ag 19-9 2261 30 U/mL (0-35); Carcinoembryonic Antigen 2139 3.3 ng/mL (0.0-4.7)
== END | disposition home or self-care (01) ==
LOC: LAB 16:47
PROVIDERS: PCP Family Medicine; Referring Provider Internal Medicine Gastroenterology; Visit Provider Internal Medicine Gastroenterology
DX: C18.7 Malignant neoplasm of sigmoid colon (principal); D50.0 Iron deficiency anemia secondary to blood loss (chronic); R79.89 Other specified abnormal findings of blood chemistry; R74.01 Elevation of levels of liver transaminase levels
CPT/HCPCS: 36415; 82105; 82378; 86301

== ENCOUNTER 2023-12-02 08:51 | Day surgery (SDC) | payer OTHER, SELFPAY ==
[2023-12-02] VITALS (10 sets, daily range): BP systolic 106–121; BP diastolic 69–83; PULSE 55–64; RESP 14–16; TEMP 36.1–36.5; O2SAT 99–100; BMI 16.6
--- NOTE | 2023-12-02 | FLU_PTH ---
PATIENT: JC DUNAWAY LOC: EN U#:[id number] AGE/SX: 58/M ROOM: RE12/02/[address]: Dr. Julio Hanson DO : 1965 BED: DIS: 12/02/2023 SPEC #: [id number] RECD: 12/02/23 12:43 STATUS: PRANAV REQ #: [id number] QI: 12/02/23 00:[address]: Julio Hanson DEPT: CYTOLOGY RECD BY: Marcus Borges ENTERED: 12/02/23 12:44 SP TYPE: Fluid OTHR DR: Dr. Sage Taylor DO Tissues: A - Bile duct, NOS B - Bile duct, NOS Procedures: Special Stain Group II Surgery Specimen Level III Surgery Specimen Level IV Cytospin Fluid Comments: @ Specimen number changed from [id number] to [id number] @ on 12/02/23 at 1259 by UNRULY. HEADER OPERATION: ERCP with brushings PRE-OP DIAGNOSIS: Abnormal ERCP TISSUE SUBMITTED: A- Common bile duct brush tip fluid, B- Common bile duct brushings DIAGNOSIS CYTOLOGY A. Common bile duct brush tip fluid (cytospin and cellblock): Negative for malignant cells. See cytology study. B. Common bile ducts brushings (smears): Negative for malignant cells. See cytology study. SJ.mr 12/03/2023 COMMENT Correlation with clinical findings and appropriate follow up are necessary. CYTOLOGY STUDY Slides are reviewed. A. The specimen is pacicellular and consists of benign ductal cells and a few squamous cells. B. The specimen is pacicellular and consists of benign ductal cells. CYTOLOGY GROSS A. Received is 1 brush tip with 1 ml of light-swanson cloudy fluid labeled with the patient's name and and designated per the requisition as Common bile duct brush tip. Submitted for cytology preparation including cell block. B, Received are 3 smears labeled with the patient's name and designated per the requisition as Common bile duct brushings. Submitted for staining. Mr 12/02/2023 TC:4 CPT: 98736,81388,02219
--- NOTE | 2023-12-02 09:15 | PRE.ANES_ITS ---
ASA Classification* ASA Classification ASA Classification: 2 Assessment & Plan Anesthesia* Anesthesia Assessment Anesthesia Assessment: Discussed sedation and/or anesthesia options, risks, benefits, and alternatives with patient/parents/legal guardian/POA. Questions invited. The patient/parents/legal guardian/POA seems to understand and agrees to proceed with anesthesia plan. Reviewed the physical assessment, medical history, allergy history and patient home medications list prior to surgery/procedure/anesthetic and documented any changes. Performed airway and anesthesia risk assessments. Anesthesia Type Anesthesia Type: General (see written pre anesthesia record for full assessment) Anesthesia Focused Assessment* Temperature: 97.7 F Pulse Rate: 60 Blood Pressure: 106/69 Respiratory Rate: 16 Pulse Ox: 100 Airway Assessment Mouth opens: >3 cm Mallampati Score: II Focused Labs Anesthesia Preop lab: CBC WBC 5.6 K/mm3 (4.4-11.0) 09/24/23 09:32 RBC 3.96 M/mm3 (4.6-6.2) L 09/24/23 09:32 Hgb 12.7 g/dL (13.0-16.5) L 09/24/23 09:32 Hct 37.4 % (40-54) L 09/24/23 09:32 Plt Count 328 K/mm3 (150-450) 09/24/23 09:32 CHEMISTRY Potassium 4.1 mmol/L (3.5-5.1) 03/31/23 11:43 Sodium 137 mmol/L (136-145) 03/31/23 11:43 BUN 17 mg/dL (7-18) 03/31/23 11:43 Creatinine 0.75 mg/dL (0.70-1.30) 03/31/23 11:43 Glucose 88 mg/dL (74-106) 03/31/23 11:43 TSH 1.06 uIU/mL (0.358-3.74) 03/31/23 11:43 COAG PT 15.6 SECONDS (11.7-14.9) H 03/31/23 11:43 Pre-Assessment Diagnosis/Proposed Procedure Planned Operative Procedure(s): ERCP Anesthesia History Anesthesia History - jacquard card cutter: Anesthesia History - jacquard card cutter Hx Hospitalization No 12/01/23 10:01 Any Problems With Anesthesia No 12/01/23 10:01 Cholinesterase deficiency No 12/01/23 10:01 You/Your Family Experience No 12/01/23 10:01 fever (hyperthermia) with Relationship Recent Exposure to Contagious No 12/02/23 09:08 Disease Does patient have nerve No 12/01/23 10:01 stimulator Patient instructed to have device shut off --Does patient have Pacemaker No 12/02/23 09:08 or ICD? When Was Last Pacemaker Check QUESTION #4 FULL TEXT: You/Your Family Experience fever (hyperthermia) with Anesthesia Last Oral Intake Last Oral intake: Last Oral Intake NPO since 00:00 12/02/23 09:08 Meds taken in AM with sips of water? Meds patient instructed to take am of surgery PONV PONV - jacquard card cutter: PONV - jacquard card cutter Female No 12/01/23 10:01 HX of Motion Sickness No 12/01/23 10:01 HX of N/V After Surgery No 12/01/23 10:01 Non-Smoker Yes 12/01/23 10:01 Duration of Surgery greater Yes 12/01/23 10:01 than 60 minutes Number of Risk Factors 2 12/01/23 10:01 PONV Score Moderate Risk 12/01/23 10:01 Height & Weight Height & Weight: Anesthesia: Height & Weight Height 5 ft 6 in 12/02/23 09:08 Weight: 46.72 kg 12/02/23 09:08 Body Mass Index (BMI) 16.6 12/02/23 09:08 Respiratory Assessment Respiratory Assessment - jacquard card cutter: Respiratory Tract Infection Hx - jacquard card cutter Hx Respiratory Tract Infection No 12/01/23 10:01 STOP Sleep Apnea STOP Sleep Apnea - jacquard card cutter: STOP Sleep Apnea - jacquard card cutter Hx Hypertension No 12/01/23 10:01 Hx Sleep Apnea No 12/01/23 10:01 CPAP BIPAP Do you snore loudly (louder No 12/01/23 10:01 than talking or can be heard Do you often feel tired/ No 12/01/23 10:01 fatigued/ sleepy during daytime? Has anyone observed you stop No 12/01/23 10:01 breathing during sleep? STOP Results Negative 12/01/23 10:01 QUESTION #5 FULL TEXT : Do you snore loudly (louder than talking or can be heard through closed doors)? 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 Specify any problems Hx of Preganancy in last 3 N/A 12/01/23 10:01 Months Nurse Filling Out Transfusion DSCHRIBER 12/01/23 10:01 & Questions: Date: 12/01/23 12/01/23 10:01 Time: 10:02 12/01/23 10:01 Patient unable to answer at this time (ie. confused, unrespo /Reproduction History /Reproductive History - jacquard card cutter: /Reproductive Hx- jacquard card cutter Hx Now No 12/01/23 10:01 Gestational Age (in weeks): EDC: Hx Hx Para Hx Section SAB No 12/01/23 10:01 Active Medications Active Medications: Current Medications Generic Name Dose Route Start Last Admin Trade Name Freq PRN Reason Stop Dose Admin Lactated Ringer's 1,000 mls @ 15 mls/hr 12/02/23 09:00 IV .Q48H RAMOS PFSH Medical History (Updated 12/01/23 @ 10:08 by Loyda Martinez) History of steroid therapy Low iron Easy bruising History of stress test Elevated LFTs Iron deficiency anemia due to chronic blood loss History of colon cancer Injury of head and neck Non-smoker Hx of fracture of left hip Weight loss Ulcerative colitis Home Medications ?Medication ?Instructions ?Recorded ?Last Taken ?Type diphenoxylate-atropine 2.5 1 tab PO Q6H PRN Cough 09/17/21 12/02/23 History mg-0.025 mg tablet cholestyramine (with sugar) 4 gram 4 g PO QDAY #30 ea 11/09/23 Unknown Rx powder for susp in a packet Allergy/AdvReac Type Severity Reaction Status Date / Time No Known Allergies Allergy Verified 12/02/23 09:06 Surgical History (Updated 12/01/23 @ 10:08 by Loyda Martinez) History of esophagogastroduodenoscopy (EGD) History of ileostomy History of colon resection Hx of colonoscopy Social History household members: spouse Smoking Status: Never smoker second hand exposure: No details: very rarely substance use type: does not use cruz/hindu: Roman [employer] seatbelt use: always do you feel safe at home: Yes Review of Systems (Anesthesia) ROS Narrative System reviewed and no additional complaints, except as documented.
[2023-12-02] MEDS: Lactated Ringers 1,000 ML 15 ML IV (09:16)
--- NOTE | 2023-12-02 09:50 | HP.PCM_ITS ---
History and Physical Date of Admission: 12/02/23 JC DUNAWAY, is a 58 M who presents to the office today for follow up. *[facility] established 11.21.20 for management of UC diagnosed 1981 and currently managed with sulfasalazine 1gram BID. Ran out of medication several weeks ago and have seen having loose stools with blood. Exacerbation by stress. has concern regarding weight loss of 50lbs over the last six months. ? EGD/Colonoscopy 11.28.20 EGD LA Grade A esophagitis; congested duodenum, Samy Gland Hyperplasia. Colonoscopy inflammation with erosions, erythema, loss of vascularity, mucus, scarring and deep ulcerations from anus to hepatic flexure without sparing; large frond-like non-obstructing mass od distal descending colon, tattooed, invasive adenocarcinoma. Random biopsy, active colitis with low and focal high- grade glandular dysplasia. OV 12.07.20 with newly diagnosed colon cancer. Continue sulfasalazine. ? Biochemical CBC, CMP, CEA without pertinent abnormality.??? CT chest/abd/pel 12.28.20 mild lung scarring with emphysematous changes; small hiatal hernia; diffuse circumferential wall thickening of colon; inflammatory changes of RS colon; wall thickening and mass of cecum through descending colon. [facility] established for management of colon cancer. There was concern for elevated LFT with liver disease not concerning finding based on CT scan. Surgery 02.12.21 laparoscopic total proctocolectomy with ileoanal pouch creation, diverting loop ileostomy. No complications. Pathology 2 invasive adenocarcinomas, moderately differentiated and invading submucosa with background marked UC and multifocal low-grade dysplasia. Margins clear. Lymph nodes clear of cancer ? Pouchoscopy 04.22.21 note from provider reports as normal. ? Surgery 06.04.21 loop ileostomy closure ? CT chest/abd/pel 09.30.22 stable lung scarring; right ileostomy no longer seen; s/p ileal rectal anastomosis. ? Biochemical CBC (anemic), CMP, CEA, B12 without pertinent abnormality ? AST H96-ALT [id number] OV 1.30.24 Rectal pain/burning is a problem with BM; BM occur 6-7/day alternating between formed and loose. Present for surgery. Elevated LFT has also been mentioned to him; AP noted to run 600-800+. OV 7.25.24 pt reports that he is feeling well, but is concerned about his weight loss. Pt reports that he has a normal appetite and that he is able to eat, but his food empties too quickly. Pt continues with cholestyramine, lomotil, and imodium as needed. ROS Const Constitutional: Positive for weight change (weight loss); No fatigue or fever(s) ENT ENT: No difficulty swallowing Gastro GI: No abdominal pain, belching, bloating, change in bowel habits, change in stool character, coffee ground emesis, constipation, cramping, diarrhea, heartburn, difficulty swallowing, feeling full early, excessive flatus, incontinent of stools, Vomiting blood/hematemesis, Blood in stool, loose stools, Black,tarry stools, nausea/dyspepsia, pain with swallowing, vomiting or other Musc Musculoskeletal: No joint pain Skin Skin: No yellowing of the eye or itchy eyes Psych Psychiatric: No anxiety and No depression Endo Endocrine: Positive for weight change (weight loss); No fatigue Aller/Imm Allergy/Immunologic: No itchy eyes Rodrick/Lymp Hematologic/Lymphatic: Positive for easy bruising; No easy bleeding Exam Const General: cooperative and comfortable Nutritional Appearance: average body habitus and well nourished [facility] Head: normal to inspection Ears: hearing grossly normal bilaterally Nose: external nose normal Face and sinus: normal facial exam Mouth: oral mucosae normal Throat: posterior oropharynx normal Eyes General: appearance normal, both eyes and all related structures Neck Neck: normal visual inspection Chest Chest palpation & inspection: normal inspection of the chest and normal palpation of entire chest wall Resp Effort & Inspection: normal respiratory effort Auscultation: Bilateral: Clear to Auscultation Cardio Palpation: normal PMI Rate: regular rate Rhythm: regular rhythm GI Inspection: normal to inspection Auscultation: normal bowel sounds Percussion: normal to percussion Palpation: no hepatosplenomegaly Skin General: no rashes or lesions noted Neuro General: patient alert Extrem General: normal to inspection Psych Affect: normal affect Assessment and Plan Assessment and Plan (1) Transaminitis: Status: Chronic Plan: Elevated LFTs without significant elevation in liver function test consistent with a cholestatic hepatitis. Differential diagnosis does include chronic viral hepatitis, autoimmune hepatitis, primary sclerosing cholangitis, primary biliary cirrhosis, Jasmeet's disease, hemochromatosis, infiltrative disease such as sarcoidosis, amyloidosis or hemochromatosis. He will undergo biochemical testing along with MRCP and likely liver biopsy. (2) Ulcerative colitis: Status: Chronic Qualifiers: Ulcerative colitis location: ulcerative pancolitis Digestive disease complication type: unspecified complication Qualified Code(s): K51.019 - Ulcerative (chronic) pancolitis with unspecified complications Plan: He is status post total proctocolectomy with ileal anal anastomosis and pouch placement. He seems to be having signs and symptoms of pouchitis. He is taking Lomotil therapy. I will give him metronidazole and Flagyl and cholestyramine. He may need to eat mesalamine in the future. He said he had a flexible sigmoidoscopy proximal a month ago. We will need to get that report and the biopsy results. (3) Colon cancer: Status: Deleted (4) Diarrhea: Status: Acute Plan: We will put him on increased dose of cholestyramine in the morning and at night for his diarrhea. (5) Weight loss: Status: Acute Plan: For his weight loss we will put him on a short course of steroids (6) Elevated LFTs: Status: Chronic Plan: For his increased LFTs we will get MRCP due to his history of ulcerative colitis he is high risk for primary sclerosing cholangitis and primary biliary cirrhosis I have examined the patient and the H&P has been reviewed. There are no clinical changes since date of exam.
--- NOTE | 2023-12-02 10:11 | EKG12_ITS ---
Test Reason : pre op Blood Pressure : / mmHG Vent. Rate : 062 BPM Atrial Rate : 062 BPM P-R Int : 148 ms QRS Dur : 092 ms QT Int : 434 ms P-R-T Axes : 035 072 060 degrees QTc Int : 440 ms Normal sinus rhythm Septal infarct , age undetermined Abnormal ECG No previous ECGs available Confirmed by VLADIMIR MILIAN, INOCENCIO ([id number]), editorial assistant THIERNO TESFAYE ([id number]) on 12/03/2023 1:03:08 PM Referred By: Sage Taylor Confirmed By:INOCENCIO GILBERT MD
--- NOTE | 2023-12-02 11:00 | RAD_ITS ---
STUDY: ERCP. REASON FOR EXAM: Male, 58 years old. Intermittent right upper quadrant pain. FLUOROSCOPY TIME (if supplied): ( 3 minutes and 4 seconds ) minutes/seconds. 22.84 mGy. 14 images were submitted. TECHNIQUE: Intraoperative imaging provided for ERCP. COMPARISON: None. FINDINGS: Fluoroscopic services provided for ERCP. RAD/ERCP Biliary/Pancreas IMPRESSION: Fluoroscopic services provided for ERCP. Electronically Signed: Bk Berkowitz MD at 13:34 EDT ,
--- NOTE | 2023-12-02 11:22 | OP.ERCP_ITS ---
Patient Name: Mohamud Malik Procedure Date: 12/02/2023 9:59 AM Date of : 1965 Age: 58 Procedure: ERCP Indications: Jaundice, Elevated liver enzymes Providers: Julio Hanson DO Referring MD: Sage Taylor Medicines: Monitored Anesthesia Care Patient Profile: This is a 58 year old male. Refer to note in patient chart for documentation of history and physical. Patient has symptoms of chronic jaundice. This patient has no history of previous ERCP. Complications: No immediate complications. Procedure: Pre-Anesthesia Assessment: - Prior to the procedure, a History and Physical was performed, and patient medications and allergies were reviewed. The patient is competent. The risks and benefits of the procedure and the sedation options and risks were discussed with the patient. All questions were answered and informed consent was obtained. Patient identification and proposed procedure were verified by the physician in the pre-procedure area. Mental Status Examination: alert and oriented. Airway Examination: normal oropharyngeal airway and neck mobility. Respiratory Examination: clear to auscultation. CV Examination: normal. Prophylactic Antibiotics: The patient does not require prophylactic antibiotics. Prior Anticoagulants: The patient has taken no anticoagulant or antiplatelet agents. ASA Grade Assessment: III - A patient with severe systemic disease. After reviewing the risks and benefits, the patient was deemed in satisfactory condition to undergo the procedure. The anesthesia plan was to use general anesthesia. Immediately prior to administration of medications, the patient was re-assessed for adequacy to receive sedatives. The heart rate, respiratory rate, oxygen saturations, blood pressure, adequacy of pulmonary ventilation, and response to care were monitored throughout the procedure. The physical status of the patient was re-assessed after the procedure. After obtaining informed consent, the scope was passed under direct vision. Throughout the procedure, the patient's blood pressure, pulse, and oxygen saturations were monitored continuously. The Duodenoscope was introduced through the mouth, and advanced to the duodenum and used to inject contrast into the bile duct. The ERCP was accomplished without difficulty. The patient tolerated the procedure well. Scope In: 10:45:07 AM Scope Out: 11:06:22 AM Total Procedure Duration Time 0 hours 21 minutes 15 seconds Findings: The radiology therapist film was normal. The esophagus was successfully intubated under direct vision. The scope was advanced to a normal major papilla in the descending duodenum without detailed examination of the pharynx, larynx and associated structures, and upper GI tract. The upper GI tract was grossly normal. A long 0.025 inch Jagwire was passed into the biliary tree. The short-nosed traction sphincterotome was passed over the guidewire and the bile duct was then deeply cannulated. Contrast was injected. I personally interpreted the bile duct images. The flow of contrast through the ducts was poor. Image quality was adequate. Contrast extended to the main bile duct. Opacification of the main bile duct was successful. The maximum diameter of the ducts was 5 mm. The hepatic duct bifurcation contained a single localized stenosis less than one mm in length. The gallbladder contained one stone, which was 6 mm in diameter. A 5 mm biliary sphincterotomy was made with a traction (standard) sphincterotome using ERBE electrocautery. There was no post-sphincterotomy bleeding. The biliary tree was swept with a 12 mm balloon starting at the bifurcation. Nothing was found. Dilation of the hepatic duct bifurcation with 10-12 Fr catheter dilator was successful. Cells for cytology were obtained by brushing in the hepatic duct bifurcation. Impression: - A single localized biliary stricture was found. The stricture was indeterminate. - Cholecystolithiasis was found. [Removal]. - A biliary sphincterotomy was performed. - The biliary tree was swept and nothing was found. - The hepatic duct bifurcation was successfully dilated. - Cells for cytology obtained at the hepatic duct bifurcation. Recommendation: referral to tertiary care center for the evaluation of primary sclerosing cholangitis and possible cholangiocarcinoma Procedure Code(s): --- Professional --- 20637, Endoscopic retrograde cholangiopancreatography (ERCP); with sphincterotomy/papillotomy 28791, 26, Endoscopic catheterization of the biliary ductal system, radiological supervision and interpretation 62272, Unlisted procedure, biliary tract CPT copyright 2021 [employer]. All rights reserved. The codes documented in this report are preliminary and upon crib attendant review may be revised to meet current compliance requirements. Julio Hanson DO 12/02/2023 11:22:02 AM This report has been signed electronically. Number of Addenda: 0 Note Initiated On: 12/02/2023 9:59 AM
--- NOTE | 2023-12-02 11:22 | OP.CCLET_ITS ---
12/02/2023 Sage Taylor Re : ERCP procedure for Mohamud Malik Dear Claudia This procedure was performed on Saturday, December 02, 2023. My impressions and recommendations are as follows: Impressions : - A single localized biliary stricture was found. The stricture was indeterminate. - Cholecystolithiasis was found. [Removal]. - A biliary sphincterotomy was performed. - The biliary tree was swept and nothing was found. - The hepatic duct bifurcation was successfully dilated. - Cells for cytology obtained at the hepatic duct bifurcation. Recommendations : referral to tertiary care center for the evaluation of primary sclerosing cholangitis and possible cholangiocarcinoma My findings are described in the full procedure note, which is enclosed. If I can be of further assistance, please feel free to contact me at . Sincerely, Julio Hanson, 12/02/2023 11:22:02 AM This report has been signed electronically.
--- NOTE | 2023-12-02 11:25 | PCM.POST.ANE ---
Anesthesia: Postop Eval I Current Vital Signs Temperature: 97.4 F Pulse Rate: 64 Blood Pressure: 116/83 Respiratory Rate: 14 Pulse Ox: 99 Oxygen Delivery Method: Room Air Assessment Airway patent: Yes Spontaneous unlabored respirations: Yes Mental status: Asleep nausea: No Vomiting: No Anesthesia Complication: No Fluid Hydration Crystalloid volume administer (ml): 1,200 Total IV fluid infused: 1,200 Progress Note Anesthesia document: Postop Eval 1 completed: Yes
--- NOTE | 2023-12-02 11:46 | PCM.POSTANE2 ---
Anesthesia Postop Eval I Sum Postop Eval Completion status Anesthesia document: Postop Eval 1 completed: Yes Anesthesia Postop Eval I Summary Anesthesia Postop Eval I Summary: Anesthesia Postop Eval I: Assessment Summary Airway patent Yes 12/02/23 11:27 [email or web address] Spontaneous unlabored Yes 12/02/23 11:27 [email or web address] respirations Mental status Asleep 12/02/23 11:27 [email or web address] nausea No 12/02/23 11:27 [email or web address] Vomiting No 12/02/23 11:27 [email or web address] Anesthesia Postop Eval I: Fluid Summary Crystalloid volume administer 1,200 12/02/23 11:27 [email or web address] (ml) Colloids volume administered ( ml) Blood Product volume administered (ml) Total IV fluid infused 1,200 12/02/23 11:27 [email or web address] Anesthesia Postop Eval I: Summary Notes Anesthesia Complication No 12/02/23 11:27 [email or web address] Anesthesia Complication Comment: Post-operative progress note Anesthesia: Postop Eval II Evaluation Mental status: Awake Pain Level: 0 nausea: No Vomiting: No
== END 2023-12-02 12:58 | disposition home or self-care (01) ==
LOC: EN 08:51 → AC 08:53
PROVIDERS: PCP Family Medicine; Referring Provider Family Medicine; Visit Provider Internal Medicine Gastroenterology
PROC: (CPT 43260; principal; 2023-12-02 09:25)
DX: K83.1 Obstruction of bile duct (principal); K51.019 Ulcerative (chronic) pancolitis with unspecified complications; R74.01 Elevation of levels of liver transaminase levels; Z79.899 Other long term (current) drug therapy; D50.0 Iron deficiency anemia secondary to blood loss (chronic); Z90.49 Acquired absence of other specified parts of digestive tract
CPT/HCPCS: 43277; 00732; 74330; 76000; 88108; 88304; 88305; 88313; 93005; J7120; J2405

== ENCOUNTER 2024-04-27 17:03 | Outpatient (RCR) | payer OTHER, SELFPAY ==
[2024-04-27 17:36] LABS: Absolute Lymphocyte Count 1.15 X10^3/uL (0.83-4.51); Absolute Neutrophil Count 4.8 X10^3/uL (2.0-7.7); Basophil# 0.05 X10^3/uL; Basophil% 0.7 % (0-1); Eosinophil# 0.19 X10^3/uL; Eosinophils% 2.8 % (0-5); Hematocrit 38.4 % (40-54); Hemoglobin 12.8 g/dL (13.0-16.5); Lymphocyte # 1.15 X10^3/ul (0.83-4.51); Lymphocyte % 16.7 % (19-41); Mean Corp Hgb Conc 33.3 g/dL (32-36); Mean Corpuscular Hgb 32.5 pg (27.0-32.0); Mean Corpuscular Volume 97.5 fL (80-94); Mean Platelet Vol. 11.9 fl (6.2-12.0); Monocyte# 0.68 X10^3/uL; Monocyte% 9.9 % (0-10); NRBC Flagged by Analyzer 0 % (0-5); Neutrophil # 4.77 X10^3/uL (2.7-7.7); Neutrophil % 69.5 % (47-70); Platelet Count 253 K/mm3 (150-450); RBC Distribution Width CV 15.5 % (11.6-14.6); RBC Distribution Width SD 55.9 fl (35.1-43.9); Red Blood Count 3.94 M/mm3 (4.6-6.2); White Blood Count 6.9 K/mm3 (4.4-11.0)
[2024-04-27 20:28] LABS: AST(SGOT) 139 U/L (<=37); Alanine Aminotransfer ALT/SGPT 99 U/L (<=46); Albumin, Serum 3.9 g/dL (3.5-5.0); Alkaline Phosphatase 616 U/L (40-129); BUN 11 mg/dL (4-19); BUN/Creat Ratio 14.8 RATIO (10-20); Bilirubin, Direct 3.11 mg/dL (0.00-0.30); Calcium 9.1 mg/dL (7.6-11.0); Carbon Dioxide 22.1 mmol/L (22.0-29.0); Creatinine, Serum 0.7 mg/dL (0.8-1.3); EST Glomerular Filtration Rate 106 (>60); Glucose 91 mg/dL (70-99); Total Bilirubin 3.96 mg/dL (0.00-1.30)
[2024-04-27 20:32] LABS: Anion Gap 12 (5-15); Chloride 103 mmol/L (96-108); Sodium Level 137 mmol/L (133-145)
== END 2024-04-29 18:00 | disposition home or self-care (01) ==
LOC: LAB 17:03
PROVIDERS: PCP Family Medicine; Referring Provider Internal Medicine Critical Care Medicine; Visit Provider Internal Medicine Critical Care Medicine
DX: Z01.818 Encounter for other preprocedural examination (principal); Z01.810 Encounter for preprocedural cardiovascular examination
CPT/HCPCS: 36415; 80048; 82040; 82247; 82248; 84075; 84450; 84460; 85025

== ENCOUNTER → 2024-04-28 | Outpatient (CLI) | payer OTHER, SELFPAY ==
[2024-04-28 17:20] LABS: International Normalized Ratio 1.6; Prothrombin Time (Protime)PT. 19.1 SECONDS (11.7-14.9)
[2024-04-28 17:21] LABS: Partial Thromboplast Time 32.7 Seconds (24.1-36.2)
== END | disposition home or self-care (01) ==
LOC: LAB 17:00
PROVIDERS: PCP Family Medicine; Referring Provider Internal Medicine Critical Care Medicine; Visit Provider Internal Medicine Critical Care Medicine
DX: Z01.818 Encounter for other preprocedural examination (principal); Z01.810 Encounter for preprocedural cardiovascular examination
CPT/HCPCS: 85610; 85730

== ENCOUNTER 2024-06-27 08:48 | Outpatient (RCR) | payer OTHER, SELFPAY ==
[2024-06-13 09:16] LABS: Absolute Lymphocyte Count 0.62 X10^3/uL (0.83-4.51); Basophil# 0.08 X10^3/uL; Basophil% 0.8 % (0-1); Hematocrit 32.3 % (40-54); Hemoglobin 10.5 g/dL (13.0-16.5); Lymphocyte # 0.62 X10^3/ul (0.83-4.51); Lymphocyte % 6.1 % (19-41); Mean Corp Hgb Conc 32.5 g/dL (32-36); Mean Corpuscular Hgb 31.2 pg (27.0-32.0); Mean Corpuscular Volume 95.8 fL (80-94); Mean Platelet Vol. 10.7 fl (6.2-12.0); Monocyte# 0.37 X10^3/uL; Monocyte% 3.7 % (0-10); NRBC Flagged by Analyzer 0 % (0-5); Neutrophil # 8.97 X10^3/uL (2.7-7.7); Neutrophil % 88.7 % (47-70); Platelet Count 530 K/mm3 (150-450); RBC Distribution Width CV 15.9 % (11.6-14.6); RBC Distribution Width SD 54.8 fl (35.1-43.9); Red Blood Count 3.37 M/mm3 (4.6-6.2); White Blood Count 10.1 K/mm3 (4.4-11.0)
[2024-06-13 10:38] LABS: Magnesium 1.7 mg/dL (1.5-2.2); Phosphorus 2.1 mg/dL (2.7-4.5)
[2024-06-13 10:39] LABS: ALB/GLOB Ratio 1.4 RATIO (0.9-2.4); AST(SGOT) 29 U/L (<=37); Alanine Aminotransfer ALT/SGPT 30 U/L (<=46); Albumin, Serum 3.4 g/dL (3.5-5.0); Alkaline Phosphatase 215 U/L (40-129); Anion Gap 10 (5-15); BUN 19 mg/dL (4-19); Bilirubin, Direct 0.51 mg/dL (0.00-0.30); Calcium,Total 8.7 mg/dL (7.6-11.0); Carbon Dioxide 22.3 mmol/L (21.0-32.0); Chloride 99 mmol/L (98-108); Creatinine, Serum 0.88 mg/dL (0.70-1.20); EST Glomerular Filtration Rate 99 (>60); Globulin 2.5 g/dL (2.2-4.2); Glucose 97 mg/dL (70-99); Potassium 4.3 mmol/L (3.3-5.1); Protein, Total 5.9 g/dL (5.9-8.4); Sodium Level 131 mmol/L (133-145); Total Bilirubin 0.82 mg/dL (0.00-1.30)
[2024-06-15 07:08] LABS: GGTP 31 IU/L (0-65); Tacrolimus (FK506) 4.9 ng/mL (5.0-20.0)
[2024-06-16 09:36] LABS: Absolute Lymphocyte Count 0.72 X10^3/uL (0.83-4.51); Absolute Neutrophil Count 6.5 X10^3/uL (2.0-7.7); Basophil# 0.06 X10^3/uL; Basophil% 0.8 % (0-1); Eosinophil# 0.01 X10^3/uL; Eosinophils% 0.1 % (0-5); Hematocrit 31.5 % (40-54); Hemoglobin 10.3 g/dL (13.0-16.5); Lymphocyte # 0.72 X10^3/ul (0.83-4.51); Lymphocyte % 9.3 % (19-41); Mean Corp Hgb Conc 32.7 g/dL (32-36); Mean Corpuscular Hgb 31.2 pg (27.0-32.0); Mean Corpuscular Volume 95.5 fL (80-94); Mean Platelet Vol. 10.3 fl (6.2-12.0); Monocyte# 0.39 X10^3/uL; NRBC Flagged by Analyzer 0 % (0-5); Neutrophil # 6.45 X10^3/uL (2.7-7.7); Neutrophil % 82.9 % (47-70); Platelet Count 621 K/mm3 (150-450); RBC Distribution Width CV 16.2 % (11.6-14.6); RBC Distribution Width SD 56.1 fl (35.1-43.9); White Blood Count 7.8 K/mm3 (4.4-11.0)
[2024-06-16 10:03] LABS: ALB/GLOB Ratio 1.3 RATIO (0.9-2.4); AST(SGOT) 24 U/L (<=37); Alanine Aminotransfer ALT/SGPT 23 U/L (<=46); Albumin, Serum 3.3 g/dL (3.5-5.0); Alkaline Phosphatase 212 U/L (40-129); Anion Gap 8 (5-15); BUN 21 mg/dL (4-19); BUN/Creat Ratio 24.6 RATIO (10-20); Bilirubin, Direct 0.45 mg/dL (0.00-0.30); Calcium,Total 8.8 mg/dL (7.6-11.0); Carbon Dioxide 26.7 mmol/L (21.0-32.0); Chloride 100 mmol/L (98-108); Creatinine, Serum 0.86 mg/dL (0.70-1.20); EST Glomerular Filtration Rate 100 (>60); Globulin 2.5 g/dL (2.2-4.2); Glucose 87 mg/dL (70-99); Magnesium 1.7 mg/dL (1.5-2.2); Phosphorus 2.1 mg/dL (2.7-4.5); Potassium 4.6 mmol/L (3.3-5.1); Protein, Total 5.8 g/dL (5.9-8.4); Sodium Level 135 mmol/L (133-145); Total Bilirubin 0.64 mg/dL (0.00-1.30)
[2024-06-19 00:07] LABS: GGTP 29 IU/L (0-65); Tacrolimus (FK506) 4.1 ng/mL (5.0-20.0)
[2024-06-20 09:47] LABS: Absolute Lymphocyte Count 0.86 X10^3/uL (0.83-4.51); Absolute Neutrophil Count 6.2 X10^3/uL (2.0-7.7); Basophil# 0.07 X10^3/uL; Basophil% 0.9 % (0-1); Eosinophil# 0.01 X10^3/uL; Eosinophils% 0.1 % (0-5); Hemoglobin 10.1 g/dL (13.0-16.5); Lymphocyte # 0.86 X10^3/ul (0.83-4.51); Lymphocyte % 11.1 % (19-41); Mean Corp Hgb Conc 32.6 g/dL (32-36); Mean Corpuscular Hgb 31.2 pg (27.0-32.0); Mean Corpuscular Volume 95.7 fL (80-94); Mean Platelet Vol. 10.2 fl (6.2-12.0); Monocyte# 0.28 X10^3/uL; Monocyte% 3.6 % (0-10); NRBC Flagged by Analyzer 0 % (0-5); Neutrophil # 6.21 X10^3/uL (2.7-7.7); Neutrophil % 80.2 % (47-70); Platelet Count 516 K/mm3 (150-450); RBC Distribution Width CV 16.7 % (11.6-14.6); RBC Distribution Width SD 58.4 fl (35.1-43.9); Red Blood Count 3.24 M/mm3 (4.6-6.2); White Blood Count 7.8 K/mm3 (4.4-11.0)
[2024-06-20 11:23] LABS: ALB/GLOB Ratio 1.3 RATIO (0.9-2.4); AST(SGOT) 22 U/L (<=37); Alanine Aminotransfer ALT/SGPT 25 U/L (<=46); Albumin, Serum 3.6 g/dL (3.5-5.0); Alkaline Phosphatase 196 U/L (40-129); Anion Gap 9 (5-15); BUN 26 mg/dL (4-19); Bilirubin, Direct 0.35 mg/dL (0.00-0.30); Calcium,Total 9.2 mg/dL (7.6-11.0); Chloride 101 mmol/L (98-108); Creatinine, Serum 1.03 mg/dL (0.70-1.20); EST Glomerular Filtration Rate 84 (>60); Globulin 2.7 g/dL (2.2-4.2); Glucose 97 mg/dL (70-99); Magnesium 1.8 mg/dL (1.5-2.2); Phosphorus 3.2 mg/dL (2.7-4.5); Potassium 4.4 mmol/L (3.3-5.1); Protein, Total 6.2 g/dL (5.9-8.4); Sodium Level 137 mmol/L (133-145); Total Bilirubin 0.52 mg/dL (0.00-1.30)
[2024-06-22 09:08] LABS: GGTP 25 IU/L (0-65); Tacrolimus (FK506) 5.8 ng/mL (5.0-20.0)
[2024-06-23 09:37] LABS: Hematocrit 33.1 % (40-54); Hemoglobin 10.7 g/dL (13.0-16.5); Mean Corp Hgb Conc 32.3 g/dL (32-36); Mean Corpuscular Volume 95.9 fL (80-94); POSITIVE COUNT YES; POSITIVE MORPHOLOGY YES; Platelet Count 432 K/mm3 (150-450); RBC Distribution Width CV 16.6 % (11.6-14.6); RBC Distribution Width SD 58.4 fl (35.1-43.9); Red Blood Count 3.45 M/mm3 (4.6-6.2); White Blood Count 7.3 K/mm3 (4.4-11.0)
[2024-06-23 09:41] LABS: Differential Indicated MANUAL DIFF
[2024-06-23 10:42] LABS: ALB/GLOB Ratio 1.3 RATIO (0.9-2.4); AST(SGOT) 21 U/L (<=37); Alanine Aminotransfer ALT/SGPT 20 U/L (<=46); Albumin, Serum 3.6 g/dL (3.5-5.0); Alkaline Phosphatase 190 U/L (40-129); Anion Gap 12 (5-15); BUN 23 mg/dL (4-19); BUN/Creat Ratio 25.6 RATIO (10-20); Bilirubin, Direct 0.33 mg/dL (0.00-0.30); Calcium,Total 9.2 mg/dL (7.6-11.0); Carbon Dioxide 23.5 mmol/L (21.0-32.0); Chloride 101 mmol/L (98-108); Creatinine, Serum 0.89 mg/dL (0.70-1.20); EST Glomerular Filtration Rate 99 (>60); Globulin 2.8 g/dL (2.2-4.2); Glucose 111 mg/dL (70-99); Hepatitis B Surface Antigen Nonreactive (Nonreactive); Magnesium 1.9 mg/dL (1.5-2.2); Phosphorus 3.4 mg/dL (2.7-4.5); Potassium 4.4 mmol/L (3.3-5.1); Protein, Total 6.4 g/dL (5.9-8.4); Sodium Level 137 mmol/L (133-145); Total Bilirubin 0.51 mg/dL (0.00-1.30)
[2024-06-23 11:16] LABS: Basophil 1 % (0-1); Lymphocyte 14 % (19-41); Monocyte 1 % (0-10); Myelocyte 1 % (0-0); Neutrophil-Band 1 % (0-5); Neutrophil-Segmented 81 % (47-70); Platelet Estimate ADEQUATE (ADEQ); Promyelocyte 1 % (0-0); Red Cell Morphology NORM C+C NORMAL (NORM C&C); Total Cells Counted 100 (MANUAL DIFF)
[2024-06-24 14:32] LABS: Pathologist Review Reviewed
[2024-06-25 15:08] LABS: HCV Quant. RNA PCR HCV Not Detected IU/mL (.)
[2024-06-27 09:45] LABS: Hemoglobin 11.2 g/dL (13.0-16.5); POSITIVE COUNT YES; POSITIVE MORPHOLOGY YES; Platelet Count 449 K/mm3 (150-450); RBC Distribution Width CV 17.2 % (11.6-14.6); RBC Distribution Width SD 60.9 fl (35.1-43.9); Red Blood Count 3.61 M/mm3 (4.6-6.2); White Blood Count 6.6 K/mm3 (4.4-11.0)
[2024-06-27 09:46] LABS: Differential Indicated MANUAL DIFF
[2024-06-27 10:17] LABS: Eosinophil 1 % (0-5); Lymphocyte 13 % (19-41); Monocyte 9 % (0-10); Neutrophil-Band 1 % (0-5); Neutrophil-Segmented 76 % (47-70); Platelet Estimate ADEQUATE (ADEQ); Red Cell Morphology NORM C+C NORMAL (NORM C&C); Total Cells Counted 100 (MANUAL DIFF)
[2024-06-27 10:18] LABS: Absolute Lymphocyte Count 0.86 X10^3/uL (0.83-4.51); Absolute Neutrophil Count 5.1 X10^3/uL (2.0-7.7)
[2024-06-27 10:38] LABS: ALB/GLOB Ratio 1.3 RATIO (0.9-2.4); AST(SGOT) 20 U/L (<=37); Alanine Aminotransfer ALT/SGPT 20 U/L (<=46); Albumin, Serum 3.8 g/dL (3.5-5.0); Alkaline Phosphatase 188 U/L (40-129); Anion Gap 10 (5-15); BUN 23 mg/dL (4-19); Bilirubin, Direct 0.27 mg/dL (0.00-0.30); Calcium,Total 9.5 mg/dL (7.6-11.0); Carbon Dioxide 26.7 mmol/L (21.0-32.0); Chloride 103 mmol/L (98-108); Creatinine, Serum 0.72 mg/dL (0.70-1.20); EST Glomerular Filtration Rate 105 (>60); Globulin 2.9 g/dL (2.2-4.2); Glucose 100 mg/dL (70-99); Magnesium 1.8 mg/dL (1.5-2.2); Phosphorus 3.3 mg/dL (2.7-4.5); Potassium 4.5 mmol/L (3.3-5.1); Protein, Total 6.7 g/dL (5.9-8.4); Sodium Level 140 mmol/L (133-145); Total Bilirubin 0.39 mg/dL (0.00-1.30)
[2024-06-27 13:08] LABS: HIV-1 RNA by PCR, Quant. < 20 copies/mL (.)
[2024-06-29 17:08] LABS: GGTP 28 IU/L (0-65); Tacrolimus (FK506) 5.6 ng/mL (5.0-20.0)
== END 2024-06-29 18:00 | disposition home or self-care (01) ==
LOC: LAB 08:48
PROVIDERS: PCP Family Medicine
DX: D50.9 Iron deficiency anemia, unspecified (principal); Z94.4 Liver transplant status; Z48.298 Encounter for aftercare following other organ transplant; Z79.899 Other long term (current) drug therapy; Z51.81 Encounter for therapeutic drug level monitoring; Z11.59 Encounter for screening for other viral diseases; Z91.89 Other specified personal risk factors, not elsewhere classified
CPT/HCPCS: 36415; 80053; 80197; 82248; 82977; 83735; 84100; 85025; 87340; 87522; 87536

== ENCOUNTER 2024-07-28 08:38 | Outpatient (RCR) | payer OTHER, SELFPAY ==
[2024-06-30 09:35] LABS: Hematocrit 34.6 % (40-54); Hemoglobin 11.1 g/dL (13.0-16.5); Mean Corp Hgb Conc 32.1 g/dL (32-36); Mean Corpuscular Hgb 31.3 pg (27.0-32.0); Mean Corpuscular Volume 97.5 fL (80-94); POSITIVE COUNT YES; POSITIVE MORPHOLOGY YES; Platelet Count 498 K/mm3 (150-450); RBC Distribution Width CV 17.5 % (11.6-14.6); RBC Distribution Width SD 62.1 fl (35.1-43.9); Red Blood Count 3.55 M/mm3 (4.6-6.2); White Blood Count 5.7 K/mm3 (4.4-11.0)
[2024-06-30 09:38] LABS: Differential Indicated MANUAL DIFF
[2024-06-30 10:03] LABS: ALB/GLOB Ratio 1.5 RATIO (0.9-2.4); AST(SGOT) 23 U/L (<=37); Alanine Aminotransfer ALT/SGPT 14 U/L (<=46); Alkaline Phosphatase 168 U/L (40-129); Anion Gap 12 (5-15); BUN 22 mg/dL (4-19); BUN/Creat Ratio 30.8 RATIO (10-20); Bilirubin, Direct 0.25 mg/dL (0.00-0.30); Calcium,Total 9.2 mg/dL (7.6-11.0); Carbon Dioxide 24.3 mmol/L (21.0-32.0); Chloride 103 mmol/L (98-108); Creatinine, Serum 0.72 mg/dL (0.70-1.20); EST Glomerular Filtration Rate 105 (>60); Globulin 2.7 g/dL (2.2-4.2); Glucose 91 mg/dL (70-99); Magnesium 1.9 mg/dL (1.5-2.2); Potassium 4.5 mmol/L (3.3-5.1); Protein, Total 6.6 g/dL (5.9-8.4); Sodium Level 139 mmol/L (133-145); Total Bilirubin 0.38 mg/dL (0.00-1.30)
[2024-06-30 10:34] LABS: Anisocytosis 1+; Basophil 1 % (0-1); Lymphocyte 17 % (19-41); Metamyelocyte 1 % (0-1); Monocyte 4 % (0-10); Neutrophil-Segmented 77 % (47-70); Red Cell Morphology N CHROM NORMAL (NORM C&C); Total Cells Counted 100 (MANUAL DIFF)
[2024-06-30 10:35] LABS: Absolute Lymphocyte Count 0.97 X10^3/uL (0.83-4.51); Absolute Neutrophil Count 4.4 X10^3/uL (2.0-7.7); Platelet Estimate SLT INC (ADEQ)
[2024-07-04 06:07] LABS: GGTP 26 IU/L (0-65); Tacrolimus (FK506) 6.9 ng/mL (5.0-20.0)
[2024-07-04 09:26] LABS: Absolute Lymphocyte Count 0.95 X10^3/uL (0.83-4.51); Absolute Neutrophil Count 3.8 X10^3/uL (2.0-7.7); Basophil# 0.05 X10^3/uL; Hematocrit 34.2 % (40-54); Hemoglobin 10.9 g/dL (13.0-16.5); Lymphocyte # 0.95 X10^3/ul (0.83-4.51); Lymphocyte % 18.1 % (19-41); Mean Corp Hgb Conc 31.9 g/dL (32-36); Mean Corpuscular Volume 97.2 fL (80-94); Monocyte# 0.41 X10^3/uL; Monocyte% 7.8 % (0-10); NRBC Flagged by Analyzer 0 % (0-5); Neutrophil # 3.75 X10^3/uL (2.7-7.7); Neutrophil % 71.2 % (47-70); POSITIVE MORPHOLOGY YES; Platelet Count 502 K/mm3 (150-450); RBC Distribution Width CV 17.7 % (11.6-14.6); RBC Distribution Width SD 62.7 fl (35.1-43.9); Red Blood Count 3.52 M/mm3 (4.6-6.2); White Blood Count 5.3 K/mm3 (4.4-11.0)
[2024-07-04 09:30] LABS: Differential Indicated SCAN CRITERIA MET
[2024-07-04 11:22] LABS: BUN 19 mg/dL (4-19); Creatinine, Serum 0.78 mg/dL (0.70-1.20); Glucose 88 mg/dL (70-99); Magnesium 1.8 mg/dL (1.5-2.2); Phosphorus 3.7 mg/dL (2.7-4.5)
[2024-07-04 11:23] LABS: ALB/GLOB Ratio 1.4 RATIO (0.9-2.4); AST(SGOT) 24 U/L (<=37); Alanine Aminotransfer ALT/SGPT 20 U/L (<=46); Albumin, Serum 3.9 g/dL (3.5-5.0); Alkaline Phosphatase 160 U/L (40-129); Anion Gap 8 (5-15); BUN/Creat Ratio 23.9 RATIO (10-20); Bilirubin, Direct 0.21 mg/dL (0.00-0.30); Calcium,Total 9.4 mg/dL (7.6-11.0); Carbon Dioxide 26.4 mmol/L (21.0-32.0); Chloride 105 mmol/L (98-108); EST Glomerular Filtration Rate 103 (>60); Globulin 2.8 g/dL (2.2-4.2); Potassium 4.8 mmol/L (3.3-5.1); Protein, Total 6.7 g/dL (5.9-8.4); Sodium Level 139 mmol/L (133-145); Total Bilirubin 0.31 mg/dL (0.00-1.30)
[2024-07-04 13:42] LABS: Platelet Estimate SLT INC (ADEQ)
[2024-07-07 10:25] LABS: Absolute Lymphocyte Count 1.03 X10^3/uL (0.83-4.51); Absolute Neutrophil Count 3.5 X10^3/uL (2.0-7.7); Basophil# 0.05 X10^3/uL; Hematocrit 34.6 % (40-54); Hemoglobin 11.1 g/dL (13.0-16.5); Lymphocyte # 1.03 X10^3/ul (0.83-4.51); Mean Corp Hgb Conc 32.1 g/dL (32-36); Mean Corpuscular Hgb 31.1 pg (27.0-32.0); Mean Corpuscular Volume 96.9 fL (80-94); Mean Platelet Vol. 10.1 fl (6.2-12.0); Monocyte# 0.44 X10^3/uL; Monocyte% 8.5 % (0-10); NRBC Flagged by Analyzer 0 % (0-5); Neutrophil # 3.54 X10^3/uL (2.7-7.7); Neutrophil % 68.8 % (47-70); POSITIVE MORPHOLOGY YES; Platelet Count 480 K/mm3 (150-450); RBC Distribution Width CV 17.7 % (11.6-14.6); RBC Distribution Width SD 63.1 fl (35.1-43.9); Red Blood Count 3.57 M/mm3 (4.6-6.2); White Blood Count 5.2 K/mm3 (4.4-11.0)
[2024-07-07 10:27] LABS: Differential Indicated SCAN CRITERIA MET
[2024-07-07 12:42] LABS: ALB/GLOB Ratio 1.1 RATIO (0.9-2.4); AST(SGOT) 22 U/L (<=37); Alanine Aminotransfer ALT/SGPT 23 U/L (<=46); Albumin, Serum 3.5 g/dL (3.4-4.8); Alkaline Phosphatase 147 U/L (40-129); Anion Gap 11 (5-15); BUN 23 mg/dL (4-19); BUN/Creat Ratio 23.8 RATIO (10-20); Calcium,Total 9.2 mg/dL (7.6-11.0); Carbon Dioxide 25.4 mmol/L (21.0-32.0); Chloride 104 mmol/L (98-108); Creatinine, Serum 0.96 mg/dL (0.70-1.20); EST Glomerular Filtration Rate 90 (>60); Globulin 3.3 g/dL (2.2-4.2); Glucose 85 mg/dL (70-99); Magnesium 1.8 mg/dL (1.5-2.2); Phosphorus 3.8 mg/dL (2.7-4.5); Potassium 4.9 mmol/L (3.3-5.1); Protein, Total 6.8 g/dL (5.9-8.4); Sodium Level 140 mmol/L (133-145)
[2024-07-07 17:08] LABS: GGTP 28 IU/L (0-65); Tacrolimus (FK506) 9.4 ng/mL (5.0-20.0)
[2024-07-11 06:07] LABS: GGTP 31 IU/L (0-65); Tacrolimus (FK506) 10.3 ng/mL (5.0-20.0)
[2024-07-11 09:15] LABS: Absolute Neutrophil Count 2.6 X10^3/uL (2.0-7.7); Basophil# 0.06 X10^3/uL; Basophil% 1.5 % (0-1); Hematocrit 34.5 % (40-54); Hemoglobin 10.8 g/dL (13.0-16.5); Lymphocyte % 24.4 % (19-41); Mean Corp Hgb Conc 31.3 g/dL (32-36); Mean Corpuscular Volume 99.1 fL (80-94); Monocyte# 0.38 X10^3/uL; Monocyte% 9.3 % (0-10); NRBC Flagged by Analyzer 0 % (0-5); Neutrophil % 63.3 % (47-70); Platelet Count 429 K/mm3 (150-450); RBC Distribution Width CV 17.6 % (11.6-14.6); RBC Distribution Width SD 64.1 fl (35.1-43.9); Red Blood Count 3.48 M/mm3 (4.6-6.2); White Blood Count 4.1 K/mm3 (4.4-11.0)
[2024-07-11 09:44] LABS: ALB/GLOB Ratio 1.5 RATIO (0.9-2.4); AST(SGOT) 20 U/L (<=37); Alanine Aminotransfer ALT/SGPT 21 U/L (<=46); Albumin, Serum 3.9 g/dL (3.4-4.8); Alkaline Phosphatase 134 U/L (40-129); Anion Gap 10 (5-15); BUN 23 mg/dL (4-19); BUN/Creat Ratio 26.9 RATIO (10-20); Bilirubin, Direct 0.17 mg/dL (0.00-0.30); Calcium,Total 9.5 mg/dL (7.6-11.0); Carbon Dioxide 25.7 mmol/L (21.0-32.0); Chloride 106 mmol/L (98-108); Creatinine, Serum 0.85 mg/dL (0.70-1.20); EST Glomerular Filtration Rate 100 (>60); Globulin 2.7 g/dL (2.2-4.2); Glucose 91 mg/dL (70-99); Magnesium 1.7 mg/dL (1.5-2.2); Phosphorus 3.8 mg/dL (2.7-4.5); Potassium 4.3 mmol/L (3.3-5.1); Protein, Total 6.6 g/dL (5.9-8.4); Sodium Level 141 mmol/L (133-145); Total Bilirubin 0.29 mg/dL (0.00-1.30)
[2024-07-13 05:07] LABS: GGTP 24 IU/L (0-65); Tacrolimus (FK506) 8.8 ng/mL (5.0-20.0)
[2024-07-14 09:43] LABS: Absolute Lymphocyte Count 0.98 X10^3/uL (0.83-4.51); Absolute Neutrophil Count 2.4 X10^3/uL (2.0-7.7); Basophil# 0.05 X10^3/uL; Basophil% 1.3 % (0-1); Hematocrit 34.8 % (40-54); Hemoglobin 11.2 g/dL (13.0-16.5); Lymphocyte # 0.98 X10^3/ul (0.83-4.51); Lymphocyte % 25.5 % (19-41); Mean Corp Hgb Conc 32.2 g/dL (32-36); Mean Corpuscular Hgb 31.6 pg (27.0-32.0); Mean Corpuscular Volume 98.3 fL (80-94); Mean Platelet Vol. 10.5 fl (6.2-12.0); Monocyte# 0.36 X10^3/uL; Monocyte% 9.4 % (0-10); NRBC Flagged by Analyzer 0 % (0-5); Neutrophil # 2.39 X10^3/uL (2.7-7.7); Neutrophil % 62.2 % (47-70); POSITIVE MORPHOLOGY YES; Platelet Count 424 K/mm3 (150-450); RBC Distribution Width CV 17.6 % (11.6-14.6); RBC Distribution Width SD 63.3 fl (35.1-43.9); Red Blood Count 3.54 M/mm3 (4.6-6.2); White Blood Count 3.8 K/mm3 (4.4-11.0)
[2024-07-14 09:50] LABS: Differential Indicated SCAN CRITERIA MET
[2024-07-14 10:42] LABS: ALB/GLOB Ratio 1.3 RATIO (0.9-2.4); AST(SGOT) 22 U/L (<=37); Alanine Aminotransfer ALT/SGPT 17 U/L (<=46); Albumin, Serum 3.9 g/dL (3.4-4.8); Alkaline Phosphatase 137 U/L (40-129); Anion Gap 11 (5-15); BUN 24 mg/dL (4-19); BUN/Creat Ratio 29.9 RATIO (10-20); Bilirubin, Direct 0.17 mg/dL (0.00-0.30); Calcium,Total 9.4 mg/dL (7.6-11.0); Carbon Dioxide 25.3 mmol/L (21.0-32.0); Chloride 106 mmol/L (98-108); EST Glomerular Filtration Rate 101 (>60); Globulin 2.9 g/dL (2.2-4.2); Glucose 82 mg/dL (70-99); Magnesium 1.8 mg/dL (1.5-2.2); Phosphorus 4.2 mg/dL (2.7-4.5); Potassium 4.6 mmol/L (3.3-5.1); Protein, Total 6.8 g/dL (5.9-8.4); Sodium Level 143 mmol/L (133-145); Total Bilirubin 0.27 mg/dL (0.00-1.30)
[2024-07-14 13:20] LABS: Platelet Estimate A (ADEQ)
[2024-07-18 09:52] LABS: Absolute Lymphocyte Count 1.03 X10^3/uL (0.83-4.51); Absolute Neutrophil Count 3.1 X10^3/uL (2.0-7.7); Basophil# 0.06 X10^3/uL; Basophil% 1.3 % (0-1); Eosinophil# 0.01 X10^3/uL; Eosinophils% 0.2 % (0-5); Lymphocyte # 1.03 X10^3/ul (0.83-4.51); Lymphocyte % 22.2 % (19-41); Mean Corp Hgb Conc 32.4 g/dL (32-36); Mean Corpuscular Volume 98.7 fL (80-94); Mean Platelet Vol. 10.4 fl (6.2-12.0); Monocyte# 0.37 X10^3/uL; NRBC Flagged by Analyzer 0 % (0-5); Neutrophil # 3.12 X10^3/uL (2.7-7.7); Neutrophil % 67.2 % (47-70); POSITIVE MORPHOLOGY YES; Platelet Count 402 K/mm3 (150-450); RBC Distribution Width CV 17.4 % (11.6-14.6); RBC Distribution Width SD 62.9 fl (35.1-43.9); Red Blood Count 3.75 M/mm3 (4.6-6.2); White Blood Count 4.6 K/mm3 (4.4-11.0)
[2024-07-18 10:34] LABS: Differential Indicated SCAN CRITERIA MET
[2024-07-18 10:38] LABS: ALB/GLOB Ratio 1.4 RATIO (0.9-2.4); AST(SGOT) 23 U/L (<=37); Alanine Aminotransfer ALT/SGPT 22 U/L (<=46); Albumin, Serum 4.2 g/dL (3.4-4.8); Alkaline Phosphatase 136 U/L (40-129); Anion Gap 10 (5-15); BUN 27 mg/dL (4-19); BUN/Creat Ratio 29.6 RATIO (10-20); Bilirubin, Direct 0.17 mg/dL (0.00-0.30); Calcium,Total 9.3 mg/dL (7.6-11.0); Carbon Dioxide 26.7 mmol/L (21.0-32.0); Chloride 104 mmol/L (98-108); Creatinine, Serum 0.92 mg/dL (0.70-1.20); EST Glomerular Filtration Rate 95 (>60); Globulin 2.9 g/dL (2.2-4.2); Glucose 88 mg/dL (70-99); Magnesium 1.8 mg/dL (1.5-2.2); Phosphorus 4.3 mg/dL (2.7-4.5); Potassium 4.5 mmol/L (3.3-5.1); Protein, Total 7.1 g/dL (5.9-8.4); Sodium Level 141 mmol/L (133-145); Total Bilirubin 0.28 mg/dL (0.00-1.30)
[2024-07-18 20:08] LABS: GGTP 24 IU/L (0-65); Tacrolimus (FK506) 8.4 ng/mL (5.0-20.0)
[2024-07-20 06:07] LABS: GGTP 27 IU/L (0-65); Tacrolimus (FK506) 9.3 ng/mL (5.0-20.0)
[2024-07-21 10:07] LABS: Absolute Lymphocyte Count 0.95 X10^3/uL (0.83-4.51); Absolute Neutrophil Count 2.9 X10^3/uL (2.0-7.7); Basophil# 0.06 X10^3/uL; Basophil% 1.4 % (0-1); Eosinophil# 0.01 X10^3/uL; Eosinophils% 0.2 % (0-5); Hematocrit 35.6 % (40-54); Hemoglobin 11.3 g/dL (13.0-16.5); Lymphocyte # 0.95 X10^3/ul (0.83-4.51); Lymphocyte % 21.7 % (19-41); Mean Corp Hgb Conc 31.7 g/dL (32-36); Mean Corpuscular Hgb 31.4 pg (27.0-32.0); Mean Corpuscular Volume 98.9 fL (80-94); Mean Platelet Vol. 10.7 fl (6.2-12.0); Monocyte# 0.48 X10^3/uL; NRBC Flagged by Analyzer 0 % (0-5); Neutrophil # 2.85 X10^3/uL (2.7-7.7); Platelet Count 349 K/mm3 (150-450); RBC Distribution Width CV 17.4 % (11.6-14.6); RBC Distribution Width SD 63.8 fl (35.1-43.9); White Blood Count 4.4 K/mm3 (4.4-11.0)
[2024-07-21 11:39] LABS: ALB/GLOB Ratio 1.4 RATIO (0.9-2.4); AST(SGOT) 28 U/L (<=37); Alanine Aminotransfer ALT/SGPT 26 U/L (<=46); Alkaline Phosphatase 151 U/L (40-129); Anion Gap 11 (5-15); BUN 28 mg/dL (4-19); BUN/Creat Ratio 29.9 RATIO (10-20); Bilirubin, Direct 0.16 mg/dL (0.00-0.30); Calcium,Total 9.5 mg/dL (7.6-11.0); Carbon Dioxide 26.1 mmol/L (21.0-32.0); Chloride 104 mmol/L (98-108); Creatinine, Serum 0.95 mg/dL (0.70-1.20); EST Glomerular Filtration Rate 92 (>60); Globulin 2.8 g/dL (2.2-4.2); Glucose 102 mg/dL (70-99); Magnesium 1.8 mg/dL (1.5-2.2); Phosphorus 4.4 mg/dL (2.7-4.5); Potassium 4.6 mmol/L (3.3-5.1); Protein, Total 6.9 g/dL (5.9-8.4); Sodium Level 141 mmol/L (133-145)
[2024-07-21 15:43] LABS: Pathologist Review Reviewed
[2024-07-25 04:07] LABS: GGTP 52 IU/L (0-65); Tacrolimus (FK506) 10.3 ng/mL (5.0-20.0)
[2024-07-26 11:08] LABS: Absolute Lymphocyte Count 0.93 X10^3/uL (0.83-4.51); Absolute Neutrophil Count 2.2 X10^3/uL (2.0-7.7); Basophil# 0.04 X10^3/uL; Basophil% 1.1 % (0-1); Eosinophil# 0.01 X10^3/uL; Eosinophils% 0.3 % (0-5); Hematocrit 35.2 % (40-54); Hemoglobin 11.3 g/dL (13.0-16.5); Lymphocyte # 0.93 X10^3/ul (0.83-4.51); Lymphocyte % 24.6 % (19-41); Mean Corp Hgb Conc 32.1 g/dL (32-36); Mean Corpuscular Hgb 31.7 pg (27.0-32.0); Mean Corpuscular Volume 98.9 fL (80-94); Monocyte# 0.47 X10^3/uL; Monocyte% 12.4 % (0-10); NRBC Flagged by Analyzer 0 % (0-5); Neutrophil # 2.24 X10^3/uL (2.7-7.7); Neutrophil % 59.2 % (47-70); POSITIVE MORPHOLOGY YES; Platelet Count 285 K/mm3 (150-450); RBC Distribution Width CV 17.3 % (11.6-14.6); RBC Distribution Width SD 63.6 fl (35.1-43.9); Red Blood Count 3.56 M/mm3 (4.6-6.2); White Blood Count 3.8 K/mm3 (4.4-11.0)
[2024-07-26 11:29] LABS: Differential Indicated SCAN CRITERIA MET
[2024-07-26 11:44] LABS: ALB/GLOB Ratio 1.5 RATIO (0.9-2.4); AST(SGOT) 39 U/L (<=37); Alanine Aminotransfer ALT/SGPT 47 U/L (<=46); Albumin, Serum 3.9 g/dL (3.4-4.8); Alkaline Phosphatase 212 U/L (40-129); Anion Gap 11 (5-15); BUN 23 mg/dL (4-19); BUN/Creat Ratio 24.3 RATIO (10-20); Bilirubin, Direct 0.12 mg/dL (0.00-0.30); Calcium,Total 9.3 mg/dL (7.6-11.0); Carbon Dioxide 24.4 mmol/L (21.0-32.0); Chloride 103 mmol/L (98-108); Creatinine, Serum 0.94 mg/dL (0.70-1.20); EST Glomerular Filtration Rate 93 (>60); Globulin 2.7 g/dL (2.2-4.2); Glucose 88 mg/dL (70-99); Magnesium 1.8 mg/dL (1.5-2.2); Potassium 4.2 mmol/L (3.3-5.1); Protein, Total 6.6 g/dL (5.9-8.4); Sodium Level 139 mmol/L (133-145)
[2024-07-26 12:19] LABS: Differential Comment SCANNED
[2024-07-28 09:04] LABS: Absolute Lymphocyte Count 1.05 X10^3/uL (0.83-4.51); Absolute Neutrophil Count 2.1 X10^3/uL (2.0-7.7); Basophil# 0.06 X10^3/uL; Basophil% 1.7 % (0-1); Eosinophil# 0.03 X10^3/uL; Eosinophils% 0.8 % (0-5); Hematocrit 35.5 % (40-54); Hemoglobin 11.2 g/dL (13.0-16.5); Lymphocyte # 1.05 X10^3/ul (0.83-4.51); Lymphocyte % 29.4 % (19-41); Mean Corp Hgb Conc 31.5 g/dL (32-36); Mean Corpuscular Hgb 31.3 pg (27.0-32.0); Mean Corpuscular Volume 99.2 fL (80-94); Mean Platelet Vol. 10.1 fl (6.2-12.0); Monocyte# 0.33 X10^3/uL; Monocyte% 9.2 % (0-10); NRBC Flagged by Analyzer 0 % (0-5); Neutrophil # 2.07 X10^3/uL (2.7-7.7); Neutrophil % 58.1 % (47-70); Platelet Count 335 K/mm3 (150-450); RBC Distribution Width CV 17.2 % (11.6-14.6); RBC Distribution Width SD 62.9 fl (35.1-43.9); Red Blood Count 3.58 M/mm3 (4.6-6.2); White Blood Count 3.6 K/mm3 (4.4-11.0)
[2024-07-28 09:43] LABS: ALB/GLOB Ratio 1.5 RATIO (0.9-2.4); AST(SGOT) 23 U/L (<=37); Alanine Aminotransfer ALT/SGPT 36 U/L (<=46); Alkaline Phosphatase 212 U/L (40-129); Anion Gap 10 (5-15); BUN 22 mg/dL (4-19); BUN/Creat Ratio 26.3 RATIO (10-20); Bilirubin, Direct 0.14 mg/dL (0.00-0.30); Calcium,Total 9.7 mg/dL (7.6-11.0); Carbon Dioxide 25.4 mmol/L (21.0-32.0); Chloride 104 mmol/L (98-108); Creatinine, Serum 0.84 mg/dL (0.70-1.20); EST Glomerular Filtration Rate 100 (>60); Globulin 2.7 g/dL (2.2-4.2); Glucose 93 mg/dL (70-99); Magnesium 1.6 mg/dL (1.5-2.2); Phosphorus 3.9 mg/dL (2.7-4.5); Potassium 4.5 mmol/L (3.3-5.1); Protein, Total 6.7 g/dL (5.9-8.4); Sodium Level 140 mmol/L (133-145); Total Bilirubin 0.25 mg/dL (0.00-1.30)
[2024-07-29 14:09] LABS: GGTP 153 IU/L (0-65); Tacrolimus (FK506) 8.5 ng/mL (5.0-20.0)
[2024-08-01 01:07] LABS: GGTP 134 IU/L (0-65); Tacrolimus (FK506) 8.7 ng/mL (5.0-20.0)
== END 2024-07-28 18:00 | disposition home or self-care (01) ==
LOC: LAB 08:38
PROVIDERS: PCP Family Medicine
DX: D50.9 Iron deficiency anemia, unspecified (principal); Z94.4 Liver transplant status; Z48.298 Encounter for aftercare following other organ transplant; Z79.899 Other long term (current) drug therapy; Z51.81 Encounter for therapeutic drug level monitoring
CPT/HCPCS: 36415; 80053; 80197; 82248; 82977; 83735; 84100; 85025

== ENCOUNTER 2024-08-29 09:09 | Outpatient (RCR) | payer OTHER, SELFPAY ==
[2024-08-01 10:07] LABS: Hematocrit 34.8 % (40-54); Mean Corp Hgb Conc 31.6 g/dL (32-36); Mean Corpuscular Hgb 31.4 pg (27.0-32.0); Mean Corpuscular Volume 99.4 fL (80-94); Mean Platelet Vol. 10.6 fl (6.2-12.0); POSITIVE COUNT YES; POSITIVE MORPHOLOGY YES; Platelet Count 368 K/mm3 (150-450); RBC Distribution Width CV 17.3 % (11.6-14.6); RBC Distribution Width SD 63.6 fl (35.1-43.9); White Blood Count 4.1 K/mm3 (4.4-11.0)
[2024-08-01 10:08] LABS: Differential Indicated MANUAL DIFF
[2024-08-01 11:08] LABS: Absolute Neutrophil Count 2.7 X10^3/uL (2.0-7.7); Basophil 1 % (0-1); Lymphocyte 21 % (19-41); Metamyelocyte 2 % (0-1); Monocyte 8 % (0-10); Myelocyte 2 % (0-0); Neutrophil-Segmented 66 % (47-70); Platelet Estimate ADEQUATE (ADEQ); Red Cell Morphology NORM C+C NORMAL (NORM C&C); Total Cells Counted 100 (MANUAL DIFF)
[2024-08-01 11:09] LABS: Absolute Lymphocyte Count 0.87 X10^3/uL (0.83-4.51)
[2024-08-01 12:27] LABS: ALB/GLOB Ratio 1.4 RATIO (0.9-2.4); AST(SGOT) 45 U/L (<=37); Alanine Aminotransfer ALT/SGPT 76 U/L (<=46); Alkaline Phosphatase 276 U/L (40-129); Anion Gap 11 (5-15); BUN 21 mg/dL (4-19); BUN/Creat Ratio 24.7 RATIO (10-20); Bilirubin, Direct 0.15 mg/dL (0.00-0.30); Calcium,Total 9.2 mg/dL (7.6-11.0); Carbon Dioxide 24.6 mmol/L (21.0-32.0); Chloride 102 mmol/L (98-108); Creatinine, Serum 0.87 mg/dL (0.70-1.20); EST Glomerular Filtration Rate 99 (>60); Globulin 2.8 g/dL (2.2-4.2); Glucose 97 mg/dL (70-99); Magnesium 1.6 mg/dL (1.5-2.2); Phosphorus 2.5 mg/dL (2.7-4.5); Potassium 5.4 mmol/L (3.3-5.1); Protein, Total 6.7 g/dL (5.9-8.4); Sodium Level 138 mmol/L (133-145); Total Bilirubin 0.24 mg/dL (0.00-1.30)
[2024-08-04 07:07] LABS: GGTP 210 IU/L (0-65); Tacrolimus (FK506) 6.8 ng/mL (5.0-20.0)
[2024-08-11 09:58] LABS: Absolute Lymphocyte Count 0.94 X10^3/uL (0.83-4.51); Absolute Neutrophil Count 2.6 X10^3/uL (2.0-7.7); Basophil# 0.08 X10^3/uL; Basophil% 1.9 % (0-1); Eosinophil# 0.07 X10^3/uL; Eosinophils% 1.7 % (0-5); Hematocrit 33.4 % (40-54); Hemoglobin 10.6 g/dL (13.0-16.5); Lymphocyte # 0.94 X10^3/ul (0.83-4.51); Lymphocyte % 22.7 % (19-41); Mean Corp Hgb Conc 31.7 g/dL (32-36); Mean Corpuscular Hgb 31.5 pg (27.0-32.0); Mean Corpuscular Volume 99.1 fL (80-94); Mean Platelet Vol. 10.2 fl (6.2-12.0); Monocyte# 0.39 X10^3/uL; Monocyte% 9.4 % (0-10); NRBC Flagged by Analyzer 0 % (0-5); Neutrophil # 2.57 X10^3/uL (2.7-7.7); Neutrophil % 62.1 % (47-70); POSITIVE MORPHOLOGY YES; Platelet Count 490 K/mm3 (150-450); RBC Distribution Width CV 16.6 % (11.6-14.6); RBC Distribution Width SD 60.8 fl (35.1-43.9); RET-HE 35.3 pg (30-35); Red Blood Count 3.37 M/mm3 (4.6-6.2); Reticulocyte Count 1.42 % (0.5-1.5); White Blood Count 4.1 K/mm3 (4.4-11.0)
[2024-08-11 09:59] LABS: Differential Indicated SCAN CRITERIA MET
[2024-08-11 10:47] LABS: Bilirubin, Direct 0.18 mg/dL (0.00-0.30); Magnesium 1.7 mg/dL (1.5-2.2); Phosphorus 3.4 mg/dL (2.7-4.5)
[2024-08-11 11:00] LABS: ALB/GLOB Ratio 1.4 RATIO (0.9-2.4); AST(SGOT) 35 U/L (<=37); Alanine Aminotransfer ALT/SGPT 58 U/L (<=46); Alkaline Phosphatase 321 U/L (40-129); Anion Gap 11 (5-15); BUN 22 mg/dL (4-19); BUN/Creat Ratio 26.2 RATIO (10-20); Calcium,Total 9.5 mg/dL (7.6-11.0); Carbon Dioxide 25.5 mmol/L (21.0-32.0); Chloride 103 mmol/L (98-108); Creatinine, Serum 0.85 mg/dL (0.70-1.20); EST Glomerular Filtration Rate 99 (>60); Ferritin 226 ng/mL (37-417); Globulin 2.8 g/dL (2.2-4.2); Glucose 88 mg/dL (70-99); Potassium 4.3 mmol/L (3.3-5.1); Protein, Total 6.7 g/dL (5.9-8.4); Sodium Level 140 mmol/L (133-145); Total Bilirubin 0.33 mg/dL (0.00-1.30); Vitamin B12 1699 pg/mL (180-914)
[2024-08-11 11:29] LABS: Iron 47 ug/dL (65-175); Iron Binding Capacity,Total 264 ug/dL (250-450); Iron Binding Capacity,Unsat 217 ug/dL (228-428)
[2024-08-12 15:53] LABS: Pathologist Review Reviewed
[2024-08-13 04:07] LABS: Carcinoembryonic Antigen 1.7 ng/mL (0.0-4.7)
[2024-08-14 20:08] LABS: GGTP 156 IU/L (0-65); Tacrolimus (FK506) 7.2 ng/mL (5.0-20.0)
[2024-08-15 09:40] LABS: Absolute Lymphocyte Count 0.75 X10^3/uL (0.83-4.51); Absolute Neutrophil Count 3.1 X10^3/uL (2.0-7.7); Basophil# 0.07 X10^3/uL; Basophil% 1.6 % (0-1); Differential Indicated SCAN CRITERIA MET; Eosinophil# 0.08 X10^3/uL; Eosinophils% 1.8 % (0-5); Hematocrit 33.6 % (40-54); Hemoglobin 10.7 g/dL (13.0-16.5); Lymphocyte # 0.75 X10^3/ul (0.83-4.51); Lymphocyte % 16.8 % (19-41); Mean Corp Hgb Conc 31.8 g/dL (32-36); Mean Corpuscular Hgb 31.8 pg (27.0-32.0); Mean Corpuscular Volume 99.7 fL (80-94); Mean Platelet Vol. 10.5 fl (6.2-12.0); Monocyte# 0.36 X10^3/uL; Monocyte% 8.1 % (0-10); NRBC Flagged by Analyzer 0 % (0-5); Neutrophil # 3.13 X10^3/uL (2.7-7.7); Neutrophil % 70.1 % (47-70); POSITIVE MORPHOLOGY YES; Platelet Count 411 K/mm3 (150-450); RBC Distribution Width SD 62.9 fl (35.1-43.9); Red Blood Count 3.37 M/mm3 (4.6-6.2); White Blood Count 4.5 K/mm3 (4.4-11.0)
[2024-08-15 10:56] LABS: Magnesium 1.6 mg/dL (1.5-2.2)
[2024-08-16 15:55] LABS: ALB/GLOB Ratio 1.5 RATIO (0.9-2.4); AST(SGOT) 43 U/L (<=37); Alanine Aminotransfer ALT/SGPT 71 U/L (<=46); Alkaline Phosphatase 364 U/L (40-129); Anion Gap 10 (5-15); BUN 27 mg/dL (4-19); Bilirubin, Direct 0.27 mg/dL (0.00-0.30); Calcium,Total 9.9 mg/dL (7.6-11.0); Carbon Dioxide 25.8 mmol/L (21.0-32.0); Chloride 103 mmol/L (98-108); Creatinine, Serum 0.88 mg/dL (0.70-1.20); EST Glomerular Filtration Rate 98 (>60); Globulin 2.7 g/dL (2.2-4.2); Glucose 125 mg/dL (70-99); Potassium 4.3 mmol/L (3.3-5.1); Protein, Total 6.6 g/dL (5.9-8.4); Sodium Level 139 mmol/L (133-145); Total Bilirubin 0.43 mg/dL (0.00-1.30)
[2024-08-18 00:07] LABS: GGTP 168 IU/L (0-65); Tacrolimus (FK506) 8.5 ng/mL (5.0-20.0)
[2024-08-18 09:25] LABS: Absolute Neutrophil Count 1.9 X10^3/uL (2.0-7.7); Basophil# 0.06 X10^3/uL; Basophil% 1.8 % (0-1); Eosinophil# 0.14 X10^3/uL; Eosinophils% 4.1 % (0-5); Hematocrit 31.7 % (40-54); Hemoglobin 10.2 g/dL (13.0-16.5); Lymphocyte % 26.3 % (19-41); Mean Corp Hgb Conc 32.2 g/dL (32-36); Mean Corpuscular Volume 99.4 fL (80-94); Mean Platelet Vol. 10.1 fl (6.2-12.0); Monocyte# 0.34 X10^3/uL; Monocyte% 9.9 % (0-10); NRBC Flagged by Analyzer 0 % (0-5); Neutrophil # 1.91 X10^3/uL (2.7-7.7); Neutrophil % 55.9 % (47-70); POSITIVE MORPHOLOGY YES; Platelet Count 392 K/mm3 (150-450); RBC Distribution Width CV 16.7 % (11.6-14.6); RBC Distribution Width SD 61.5 fl (35.1-43.9); Red Blood Count 3.19 M/mm3 (4.6-6.2); White Blood Count 3.4 K/mm3 (4.4-11.0)
[2024-08-18 09:26] LABS: Differential Indicated SCAN CRITERIA MET
[2024-08-18 09:53] LABS: ALB/GLOB Ratio 1.5 RATIO (0.9-2.4); AST(SGOT) 30 U/L (<=37); Alanine Aminotransfer ALT/SGPT 43 U/L (<=46); Albumin, Serum 3.8 g/dL (3.4-4.8); Alkaline Phosphatase 307 U/L (40-129); Anion Gap 10 (5-15); BUN 22 mg/dL (4-19); BUN/Creat Ratio 24.1 RATIO (10-20); Bilirubin, Direct 0.17 mg/dL (0.00-0.30); Calcium,Total 9.5 mg/dL (7.6-11.0); Carbon Dioxide 25.6 mmol/L (21.0-32.0); Chloride 103 mmol/L (98-108); Creatinine, Serum 0.91 mg/dL (0.70-1.20); EST Glomerular Filtration Rate 96 (>60); Globulin 2.5 g/dL (2.2-4.2); Glucose 97 mg/dL (70-99); Magnesium 1.4 mg/dL (1.5-2.2); Phosphorus 3.5 mg/dL (2.7-4.5); Potassium 4.5 mmol/L (3.3-5.1); Protein, Total 6.3 g/dL (5.9-8.4); Sodium Level 139 mmol/L (133-145); Total Bilirubin 0.29 mg/dL (0.00-1.30)
[2024-08-18 10:19] LABS: Differential Comment SCANNED
[2024-08-22 10:14] LABS: Absolute Lymphocyte Count 0.95 X10^3/uL (0.83-4.51); Absolute Neutrophil Count 2.4 X10^3/uL (2.0-7.7); Basophil# 0.06 X10^3/uL; Basophil% 1.5 % (0-1); Eosinophil# 0.21 X10^3/uL; Eosinophils% 5.2 % (0-5); Hematocrit 32.6 % (40-54); Hemoglobin 10.2 g/dL (13.0-16.5); Lymphocyte # 0.95 X10^3/ul (0.83-4.51); Lymphocyte % 23.5 % (19-41); Mean Corp Hgb Conc 31.3 g/dL (32-36); Mean Corpuscular Hgb 31.8 pg (27.0-32.0); Mean Corpuscular Volume 101.6 fL (80-94); Monocyte# 0.36 X10^3/uL; Monocyte% 8.9 % (0-10); NRBC Flagged by Analyzer 0 % (0-5); Neutrophil % 59.4 % (47-70); POSITIVE MORPHOLOGY YES; Platelet Count 370 K/mm3 (150-450); RBC Distribution Width CV 16.4 % (11.6-14.6); RBC Distribution Width SD 61.1 fl (35.1-43.9); Red Blood Count 3.21 M/mm3 (4.6-6.2)
[2024-08-22 10:23] LABS: Differential Indicated SCAN CRITERIA MET
[2024-08-22 10:49] LABS: Differential Comment SCANNED
[2024-08-22 10:58] LABS: ALB/GLOB Ratio 1.3 RATIO (0.9-2.4); AST(SGOT) 27 U/L (<=37); Alanine Aminotransfer ALT/SGPT 36 U/L (<=46); Albumin, Serum 3.7 g/dL (3.4-4.8); Alkaline Phosphatase 304 U/L (40-129); Anion Gap 11 (5-15); BUN 24 mg/dL (4-19); BUN/Creat Ratio 22.8 RATIO (10-20); Bilirubin, Direct 0.19 mg/dL (0.00-0.30); Calcium,Total 9.6 mg/dL (7.6-11.0); Carbon Dioxide 25.8 mmol/L (21.0-32.0); Chloride 103 mmol/L (98-108); Creatinine, Serum 1.04 mg/dL (0.70-1.20); EST Glomerular Filtration Rate 82 (>60); Globulin 2.8 g/dL (2.2-4.2); Glucose 97 mg/dL (70-99); Magnesium 1.6 mg/dL (1.5-2.2); Phosphorus 3.2 mg/dL (2.7-4.5); Potassium 4.6 mmol/L (3.3-5.1); Protein, Total 6.5 g/dL (5.9-8.4); Sodium Level 139 mmol/L (133-145); Total Bilirubin 0.31 mg/dL (0.00-1.30)
[2024-08-22 16:09] LABS: GGTP 128 IU/L (0-65); Tacrolimus (FK506) 8.3 ng/mL (5.0-20.0)
[2024-08-24 20:08] LABS: GGTP 138 IU/L (0-65); Tacrolimus (FK506) 8.6 ng/mL (5.0-20.0)
[2024-08-25 09:56] LABS: Absolute Lymphocyte Count 0.64 X10^3/uL (0.83-4.51); Absolute Neutrophil Count 2.4 X10^3/uL (2.0-7.7); Basophil# 0.05 X10^3/uL; Basophil% 1.3 % (0-1); Eosinophil# 0.19 X10^3/uL; Eosinophils% 5.1 % (0-5); Hematocrit 32.4 % (40-54); Hemoglobin 10.1 g/dL (13.0-16.5); Lymphocyte # 0.64 X10^3/ul (0.83-4.51); Lymphocyte % 17.3 % (19-41); Mean Corp Hgb Conc 31.2 g/dL (32-36); Mean Corpuscular Hgb 31.2 pg (27.0-32.0); Mean Platelet Vol. 10.9 fl (6.2-12.0); Monocyte# 0.35 X10^3/uL; Monocyte% 9.4 % (0-10); NRBC Flagged by Analyzer 0 % (0-5); Neutrophil # 2.43 X10^3/uL (2.7-7.7); Neutrophil % 65.6 % (47-70); POSITIVE MORPHOLOGY YES; Platelet Count 374 K/mm3 (150-450); RBC Distribution Width CV 16.2 % (11.6-14.6); RBC Distribution Width SD 59.7 fl (35.1-43.9); Red Blood Count 3.24 M/mm3 (4.6-6.2); White Blood Count 3.7 K/mm3 (4.4-11.0)
[2024-08-25 10:25] LABS: ALB/GLOB Ratio 1.3 RATIO (0.9-2.4); AST(SGOT) 33 U/L (<=37); Alanine Aminotransfer ALT/SGPT 42 U/L (<=46); Albumin, Serum 3.8 g/dL (3.4-4.8); Alkaline Phosphatase 298 U/L (40-129); Anion Gap 11 (5-15); BUN 25 mg/dL (4-19); BUN/Creat Ratio 26.1 RATIO (10-20); Bilirubin, Direct 0.21 mg/dL (0.00-0.30); Calcium,Total 9.7 mg/dL (7.6-11.0); Carbon Dioxide 25.3 mmol/L (21.0-32.0); Chloride 103 mmol/L (98-108); Creatinine, Serum 0.96 mg/dL (0.70-1.20); EST Glomerular Filtration Rate 91 (>60); Globulin 2.9 g/dL (2.2-4.2); Glucose 108 mg/dL (70-99); Magnesium 1.7 mg/dL (1.5-2.2); Phosphorus 2.8 mg/dL (2.7-4.5); Potassium 4.4 mmol/L (3.3-5.1); Protein, Total 6.6 g/dL (5.9-8.4); Sodium Level 139 mmol/L (133-145); Total Bilirubin 0.28 mg/dL (0.00-1.30)
[2024-08-25 12:15] LABS: Differential Indicated SCAN CRITERIA MET
[2024-08-28 17:07] LABS: GGTP 154 IU/L (0-65)
[2024-08-29 10:28] LABS: Absolute Neutrophil Count 2.3 X10^3/uL (2.0-7.7); Basophil# 0.07 X10^3/uL; Basophil% 1.8 % (0-1); Eosinophils% 5.1 % (0-5); Hematocrit 30.7 % (40-54); Hemoglobin 9.5 g/dL (13.0-16.5); Mean Corp Hgb Conc 30.9 g/dL (32-36); Mean Corpuscular Volume 100.3 fL (80-94); Mean Platelet Vol. 10.5 fl (6.2-12.0); Monocyte# 0.36 X10^3/uL; Monocyte% 9.2 % (0-10); NRBC Flagged by Analyzer 0 % (0-5); Neutrophil # 2.34 X10^3/uL (2.7-7.7); Neutrophil % 59.6 % (47-70); POSITIVE MORPHOLOGY YES; Platelet Count 424 K/mm3 (150-450); RBC Distribution Width CV 15.8 % (11.6-14.6); RBC Distribution Width SD 58.3 fl (35.1-43.9); Red Blood Count 3.06 M/mm3 (4.6-6.2); White Blood Count 3.9 K/mm3 (4.4-11.0)
[2024-08-29 10:34] LABS: Differential Indicated SCAN CRITERIA MET
[2024-08-29 11:11] LABS: ALB/GLOB Ratio 1.5 RATIO (0.9-2.4); AST(SGOT) 21 U/L (<=37); Alanine Aminotransfer ALT/SGPT 19 U/L (<=46); Albumin, Serum 3.8 g/dL (3.4-4.8); Alkaline Phosphatase 218 U/L (40-129); Anion Gap 10 (5-15); BUN 22 mg/dL (4-19); BUN/Creat Ratio 23.7 RATIO (10-20); Bilirubin, Direct 0.16 mg/dL (0.00-0.30); Calcium,Total 9.4 mg/dL (7.6-11.0); Carbon Dioxide 26.7 mmol/L (21.0-32.0); Chloride 103 mmol/L (98-108); Creatinine, Serum 0.94 mg/dL (0.70-1.20); EST Glomerular Filtration Rate 93 (>60); Globulin 2.5 g/dL (2.2-4.2); Glucose 90 mg/dL (70-99); Magnesium 1.6 mg/dL (1.5-2.2); Phosphorus 3.5 mg/dL (2.7-4.5); Potassium 4.5 mmol/L (3.3-5.1); Protein, Total 6.3 g/dL (5.9-8.4); Sodium Level 139 mmol/L (133-145); Total Bilirubin 0.31 mg/dL (0.00-1.30)
[2024-09-01 04:07] LABS: GGTP 102 IU/L (0-65); Tacrolimus (FK506) 6.8 ng/mL (5.0-20.0)
[2024-09-07 15:33] LABS: Pathologist Review Reviewed
== END 2024-08-29 18:00 | disposition home or self-care (01) ==
LOC: LAB 09:09
PROVIDERS: Internal Medicine Hematology & Oncology; PCP Family Medicine
DX: D50.9 Iron deficiency anemia, unspecified (principal); Z94.4 Liver transplant status; C18.9 Malignant neoplasm of colon, unspecified; Z51.81 Encounter for therapeutic drug level monitoring; Z79.899 Other long term (current) drug therapy; Z48.298 Encounter for aftercare following other organ transplant
CPT/HCPCS: 36415; 80053; 80197; 82248; 82378; 82607; 82728; 82977; 83540; 83550; 83735; 84100; 85025; 85045

== ENCOUNTER 2024-09-05 09:30 | Outpatient (RCR) | payer OTHER, SELFPAY ==
[2024-09-05 10:43] LABS: Hematocrit 31.4 % (40-54); Hemoglobin 9.9 g/dL (13.0-16.5); Immature Granulocytes Count 0.040 X10^3/uL (0.0-0.0); Mean Corp Hgb Conc 31.5 g/dL (32-36); Mean Corpuscular Volume 101.0 fL (80-94); Mean Platelet Vol. 10.2 fl (6.2-12.0); NRBC Flagged by Analyzer 0 % (0-5); Platelet Count 495 K/mm3 (150-450); RBC Distribution Width CV 15.4 % (11.6-14.6); RBC Distribution Width SD 57.1 fl (35.1-43.9); Red Blood Count 3.11 M/mm3 (4.6-6.2); White Blood Count 3.7 K/mm3 (4.4-11.0)
[2024-09-05 11:47] LABS: AST(SGOT) 21 U/L (<=37); Alanine Aminotransfer ALT/SGPT 14 U/L (<=46); Albumin, Serum 3.7 g/dL (3.4-4.8); Alkaline Phosphatase 163 U/L (40-129); Anion Gap 11 (5-15); BUN 24 mg/dL (4-19); BUN/Creat Ratio 19.8 RATIO (10-20); Bilirubin, Direct 0.11 mg/dL (0.00-0.30); Calcium,Total 9.2 mg/dL (7.6-11.0); Carbon Dioxide 23.2 mmol/L (21.0-32.0); Chloride 106 mmol/L (98-108); Globulin 2.8 g/dL (2.2-4.2); Glucose 93 mg/dL (70-99); Magnesium 1.8 mg/dL (1.5-2.2); Potassium 4.4 mmol/L (3.3-5.1)
[2024-09-07 19:08] LABS: GGTP 69 IU/L (0-65)
== END 2024-09-29 20:56 | disposition home or self-care (01) ==
LOC: LAB 09:30
PROVIDERS: PCP Family Medicine
DX: Z94.4 Liver transplant status (principal); Z48.298 Encounter for aftercare following other organ transplant; Z79.899 Other long term (current) drug therapy; Z51.81 Encounter for therapeutic drug level monitoring
CPT/HCPCS: 36415; 80053; 80197; 82248; 82977; 83735; 84100; 85025; 87497

== ENCOUNTER 2024-09-26 09:06 | Outpatient (RCR) | payer OTHER, SELFPAY ==
[2024-09-12 11:15] LABS: AST(SGOT) 27 U/L (<=37); Alanine Aminotransfer ALT/SGPT 7 U/L (<=46); Albumin, Serum 4.0 g/dL (3.4-4.8); Alkaline Phosphatase 148 U/L (40-129); Anion Gap 11 (5-15); BUN 22 mg/dL (4-19); BUN/Creat Ratio 20.0 RATIO (10-20); Bilirubin, Direct 0.14 mg/dL (0.00-0.30); Calcium,Total 9.4 mg/dL (7.6-11.0); Carbon Dioxide 24.8 mmol/L (21.0-32.0); Chloride 102 mmol/L (98-108); Globulin 2.8 g/dL (2.2-4.2); Glucose 98 mg/dL (70-99); Magnesium 1.6 mg/dL (1.5-2.2); Potassium 4.5 mmol/L (3.3-5.1)
[2024-09-12 11:50] LABS: Hematocrit 31.1 % (40-54); Hemoglobin 9.7 g/dL (13.0-16.5); Immature Granulocytes Count 0.120 X10^3/uL (0.0-0.0); Mean Corp Hgb Conc 31.2 g/dL (32-36); Mean Corpuscular Volume 101.3 fL (80-94); Mean Platelet Vol. 11.2 fl (6.2-12.0); NRBC Flagged by Analyzer 0 % (0-5); POSITIVE DIFFERENTIAL YES; POSITIVE MORPHOLOGY YES; Platelet Count 425 K/mm3 (150-450); RBC Distribution Width CV 14.9 % (11.6-14.6); RBC Distribution Width SD 55.4 fl (35.1-43.9); Red Blood Count 3.07 M/mm3 (4.6-6.2); White Blood Count 7.7 K/mm3 (4.4-11.0)
[2024-09-12 12:22] LABS: Differential Indicated SCAN CRITERIA MET
[2024-09-12 13:44] LABS: Anisocytosis A
[2024-09-16 14:09] LABS: GGTP 51 IU/L (0-65)
[2024-09-19 09:14] LABS: Hematocrit 29.7 % (40-54); Hemoglobin 9.4 g/dL (13.0-16.5); Immature Granulocytes Count 0.070 X10^3/uL (0.0-0.0); Mean Corp Hgb Conc 31.6 g/dL (32-36); Mean Corpuscular Volume 98.3 fL (80-94); Mean Platelet Vol. 9.9 fl (6.2-12.0); NRBC Flagged by Analyzer 0 % (0-5); Platelet Count 491 K/mm3 (150-450); RBC Distribution Width CV 14.6 % (11.6-14.6); RBC Distribution Width SD 52.7 fl (35.1-43.9); Red Blood Count 3.02 M/mm3 (4.6-6.2); White Blood Count 6.2 K/mm3 (4.4-11.0)
[2024-09-19 10:12] LABS: AST(SGOT) 19 U/L (<=37); Alanine Aminotransfer ALT/SGPT 9 U/L (<=46); Albumin, Serum 3.8 g/dL (3.4-4.8); Alkaline Phosphatase 151 U/L (40-129); Anion Gap 11 (5-15); BUN 20 mg/dL (4-19); BUN/Creat Ratio 15.9 RATIO (10-20); Bilirubin, Direct 0.11 mg/dL (0.00-0.30); Calcium,Total 9.5 mg/dL (7.6-11.0); Carbon Dioxide 21.9 mmol/L (21.0-32.0); Chloride 105 mmol/L (98-108); Globulin 2.8 g/dL (2.2-4.2); Glucose 111 mg/dL (70-99); Magnesium 1.8 mg/dL (1.5-2.2); Potassium 4.5 mmol/L (3.3-5.1)
[2024-09-21 19:08] LABS: GGTP 41 IU/L (0-65)
[2024-09-26 09:30] LABS: Hematocrit 26.3 % (40-54); Hemoglobin 8.3 g/dL (13.0-16.5); Immature Granulocytes Count 0.060 X10^3/uL (0.0-0.0); Mean Corp Hgb Conc 31.6 g/dL (32-36); Mean Corpuscular Volume 99.2 fL (80-94); Mean Platelet Vol. 10.3 fl (6.2-12.0); NRBC Flagged by Analyzer 0 % (0-5); Platelet Count 362 K/mm3 (150-450); RBC Distribution Width CV 14.8 % (11.6-14.6); RBC Distribution Width SD 54.1 fl (35.1-43.9); Red Blood Count 2.65 M/mm3 (4.6-6.2); White Blood Count 4.9 K/mm3 (4.4-11.0)
[2024-09-26 11:13] LABS: AST(SGOT) 28 U/L (<=37); Alanine Aminotransfer ALT/SGPT 16 U/L (<=46); Albumin, Serum 3.7 g/dL (3.4-4.8); Alkaline Phosphatase 124 U/L (40-129); Anion Gap 12 (5-15); BUN 22 mg/dL (4-19); BUN/Creat Ratio 17.7 RATIO (10-20); Bilirubin, Direct 0.11 mg/dL (0.00-0.30); Calcium,Total 9.3 mg/dL (7.6-11.0); Carbon Dioxide 23.1 mmol/L (21.0-32.0); Chloride 102 mmol/L (98-108); Globulin 2.6 g/dL (2.2-4.2); Glucose 91 mg/dL (70-99); Magnesium 1.9 mg/dL (1.5-2.2); Potassium 4.3 mmol/L (3.3-5.1)
[2024-09-28 19:08] LABS: GGTP 38 IU/L (0-65)
== END 2024-09-29 20:55 | disposition home or self-care (01) ==
LOC: LAB 09:06
PROVIDERS: PCP Family Medicine; Referring Provider Internal Medicine Critical Care Medicine; Visit Provider Internal Medicine Critical Care Medicine
DX: Z94.4 Liver transplant status (principal); Z11.59 Encounter for screening for other viral diseases; R79.9 Abnormal finding of blood chemistry, unspecified; Z48.298 Encounter for aftercare following other organ transplant; Z79.899 Other long term (current) drug therapy; Z51.81 Encounter for therapeutic drug level monitoring
CPT/HCPCS: 36415; 80053; 80197; 82248; 82977; 83735; 84100; 85025; 87497

== ENCOUNTER 2024-10-24 09:25 | Outpatient (RCR) | payer OTHER, SELFPAY ==
[2024-10-03 10:25] LABS: Hematocrit 29.5 % (40-54); Hemoglobin 9.3 g/dL (13.0-16.5); Mean Corp Hgb Conc 31.5 g/dL (32-36); Mean Corpuscular Volume 98.0 fL (80-94); Mean Platelet Vol. 10.8 fl (6.2-12.0); POSITIVE COUNT YES; POSITIVE DIFFERENTIAL YES; POSITIVE MORPHOLOGY YES; Platelet Count 293 K/mm3 (150-450); RBC Distribution Width CV 14.7 % (11.6-14.6); RBC Distribution Width SD 53.2 fl (35.1-43.9); Red Blood Count 3.01 M/mm3 (4.6-6.2); White Blood Count 8.9 K/mm3 (4.4-11.0)
[2024-10-03 10:30] LABS: Differential Indicated MANUAL DIFF
[2024-10-03 10:52] LABS: AST(SGOT) 67 U/L (<=37); Alanine Aminotransfer ALT/SGPT 71 U/L (<=46); Albumin, Serum 3.4 g/dL (3.4-4.8); Alkaline Phosphatase 266 U/L (40-129); Anion Gap 11 (5-15); BUN 36 mg/dL (4-19); BUN/Creat Ratio 22.8 RATIO (10-20); Bilirubin, Direct 1.48 mg/dL (0.00-0.30); Calcium,Total 9.0 mg/dL (7.6-11.0); Carbon Dioxide 21.7 mmol/L (21.0-32.0); Chloride 103 mmol/L (98-108); Globulin 2.7 g/dL (2.2-4.2); Glucose 138 mg/dL (70-99); Magnesium 2.1 mg/dL (1.5-2.2); Potassium 4.3 mmol/L (3.3-5.1)
[2024-10-03 10:59] LABS: Total Cells Counted 100 (MANUAL DIFF)
[2024-10-03 11:00] LABS: Neutrophil-Segmented 81 % (47-70)
[2024-10-05 22:07] LABS: GGTP 167 IU/L (0-65)
[2024-10-12 10:18] LABS: Hematocrit 29.7 % (40-54); Hemoglobin 9.1 g/dL (13.0-16.5); Immature Granulocytes Count 0.030 X10^3/uL (0.0-0.0); Mean Corp Hgb Conc 30.6 g/dL (32-36); Mean Corpuscular Volume 97.1 fL (80-94); Mean Platelet Vol. 10.5 fl (6.2-12.0); NRBC Flagged by Analyzer 0 % (0-5); POSITIVE MORPHOLOGY YES; Platelet Count 373 K/mm3 (150-450); RBC Distribution Width CV 15.1 % (11.6-14.6); RBC Distribution Width SD 54.0 fl (35.1-43.9); Red Blood Count 3.06 M/mm3 (4.6-6.2); White Blood Count 2.4 K/mm3 (4.4-11.0)
[2024-10-12 10:21] LABS: Differential Indicated SCAN CRITERIA MET
[2024-10-12 11:09] LABS: AST(SGOT) 23 U/L (<=37); Alanine Aminotransfer ALT/SGPT 17 U/L (<=46); Albumin, Serum 3.6 g/dL (3.4-4.8); Alkaline Phosphatase 184 U/L (40-129); Anion Gap 11 (5-15); BUN 20 mg/dL (4-19); BUN/Creat Ratio 15.8 RATIO (10-20); Bilirubin, Direct 0.23 mg/dL (0.00-0.30); Calcium,Total 9.1 mg/dL (7.6-11.0); Carbon Dioxide 20.4 mmol/L (21.0-32.0); Chloride 102 mmol/L (98-108); Globulin 2.8 g/dL (2.2-4.2); Glucose 94 mg/dL (70-99); Magnesium 1.9 mg/dL (1.5-2.2); Potassium 4.6 mmol/L (3.3-5.1); Reactive Lymphocyte 2+
[2024-10-12 11:10] LABS: Hypersegmented Neutrophils 1+
[2024-10-15 04:07] LABS: CMV Quant DNA log 4.164 (.); GGTP 71 IU/L (0-65)
[2024-10-17 10:16] LABS: Hematocrit 28.7 % (40-54); Hemoglobin 9.0 g/dL (13.0-16.5); Immature Granulocytes Count 0.040 X10^3/uL (0.0-0.0); Mean Corp Hgb Conc 31.4 g/dL (32-36); Mean Corpuscular Volume 96.3 fL (80-94); Mean Platelet Vol. 10.3 fl (6.2-12.0); NRBC Flagged by Analyzer 0 % (0-5); POSITIVE MORPHOLOGY YES; Platelet Count 412 K/mm3 (150-450); RBC Distribution Width CV 15.1 % (11.6-14.6); RBC Distribution Width SD 53.8 fl (35.1-43.9); Red Blood Count 2.98 M/mm3 (4.6-6.2); White Blood Count 3.9 K/mm3 (4.4-11.0)
[2024-10-17 10:28] LABS: Differential Indicated SCAN CRITERIA MET
[2024-10-17 11:01] LABS: AST(SGOT) 23 U/L (<=37); Alanine Aminotransfer ALT/SGPT 15 U/L (<=46); Albumin, Serum 3.5 g/dL (3.4-4.8); Alkaline Phosphatase 155 U/L (40-129); Anion Gap 11 (5-15); BUN 21 mg/dL (4-19); BUN/Creat Ratio 18.1 RATIO (10-20); Bilirubin, Direct 0.19 mg/dL (0.00-0.30); Calcium,Total 8.9 mg/dL (7.6-11.0); Carbon Dioxide 22.1 mmol/L (21.0-32.0); Chloride 103 mmol/L (98-108); Globulin 2.8 g/dL (2.2-4.2); Glucose 101 mg/dL (70-99); Magnesium 2.1 mg/dL (1.5-2.2); Potassium 4.7 mmol/L (3.3-5.1)
[2024-10-20 19:08] LABS: CMV Quant DNA log 3.524 (.); GGTP 47 IU/L (0-65)
[2024-10-24 10:04] LABS: Hematocrit 27.7 % (40-54); Hemoglobin 8.7 g/dL (13.0-16.5); Immature Granulocytes Count 0.020 X10^3/uL (0.0-0.0); Mean Corp Hgb Conc 31.4 g/dL (32-36); Mean Corpuscular Volume 95.5 fL (80-94); Mean Platelet Vol. 9.8 fl (6.2-12.0); NRBC Flagged by Analyzer 0 % (0-5); POSITIVE MORPHOLOGY YES; Platelet Count 506 K/mm3 (150-450); RBC Distribution Width CV 15.0 % (11.6-14.6); RBC Distribution Width SD 52.8 fl (35.1-43.9); Red Blood Count 2.90 M/mm3 (4.6-6.2); White Blood Count 2.5 K/mm3 (4.4-11.0)
[2024-10-24 10:05] LABS: Differential Indicated SCAN CRITERIA MET
[2024-10-24 10:29] LABS: Differential Comment SCANNED
[2024-10-24 11:00] LABS: AST(SGOT) 21 U/L (<=37); Alanine Aminotransfer ALT/SGPT 11 U/L (<=46); Albumin, Serum 3.6 g/dL (3.4-4.8); Alkaline Phosphatase 148 U/L (40-129); Anion Gap 10 (5-15); BUN 23 mg/dL (4-19); BUN/Creat Ratio 16.0 RATIO (10-20); Bilirubin, Direct 0.19 mg/dL (0.00-0.30); Calcium,Total 9.1 mg/dL (7.6-11.0); Carbon Dioxide 22.9 mmol/L (21.0-32.0); Chloride 105 mmol/L (98-108); Globulin 2.6 g/dL (2.2-4.2); Glucose 87 mg/dL (70-99); Magnesium 2.1 mg/dL (1.5-2.2); Potassium 4.8 mmol/L (3.3-5.1)
[2024-10-27 19:08] LABS: CMV Quant DNA log 3.575 (.); GGTP 33 IU/L (0-65)
== END 2024-10-24 18:00 | disposition home or self-care (01) ==
LOC: LAB 09:25
PROVIDERS: PCP Family Medicine
DX: D50.9 Iron deficiency anemia, unspecified (principal); Z94.4 Liver transplant status; Z48.298 Encounter for aftercare following other organ transplant; Z79.899 Other long term (current) drug therapy; Z51.81 Encounter for therapeutic drug level monitoring
CPT/HCPCS: 36415; 80053; 80197; 82248; 82977; 83735; 84100; 85025; 87497

== ENCOUNTER 2024-11-23 09:29 | Outpatient (RCR) | payer OTHER, SELFPAY ==
[2024-11-02 10:17] LABS: Hematocrit 25.0 % (40-54); Hemoglobin 7.9 g/dL (13.0-16.5); Immature Granulocytes Count 0.050 X10^3/uL (0.0-0.0); Mean Corp Hgb Conc 31.6 g/dL (32-36); Mean Corpuscular Volume 96.5 fL (80-94); Mean Platelet Vol. 9.9 fl (6.2-12.0); NRBC Flagged by Analyzer 0 % (0-5); POSITIVE DIFFERENTIAL YES; POSITIVE MORPHOLOGY YES; Platelet Count 365 K/mm3 (150-450); RBC Distribution Width CV 15.9 % (11.6-14.6); RBC Distribution Width SD 54.0 fl (35.1-43.9); Red Blood Count 2.59 M/mm3 (4.6-6.2)
[2024-11-02 11:03] LABS: Differential Indicated SCAN CRITERIA MET; White Blood Count 1.5 K/mm3 (4.4-11.0)
[2024-11-02 11:29] LABS: AST(SGOT) 22 U/L (<=37); Alanine Aminotransfer ALT/SGPT 11 U/L (<=46); Albumin, Serum 3.7 g/dL (3.4-4.8); Alkaline Phosphatase 182 U/L (40-129); Anion Gap 10 (5-15); BUN 31 mg/dL (4-19); BUN/Creat Ratio 17.3 RATIO (10-20); Bilirubin, Direct 0.10 mg/dL (0.00-0.30); Calcium,Total 9.3 mg/dL (7.6-11.0); Carbon Dioxide 22.4 mmol/L (21.0-32.0); Chloride 108 mmol/L (98-108); Globulin 2.7 g/dL (2.2-4.2); Glucose 72 mg/dL (70-99); Magnesium 2.0 mg/dL (1.5-2.2); Potassium 4.5 mmol/L (3.3-5.1)
[2024-11-04 18:08] LABS: CMV Quant DNA log 2.961 (.)
[2024-11-06 14:08] LABS: GGTP 37 IU/L (0-65)
[2024-11-09 10:12] LABS: Hematocrit 23.7 % (40-54); Hemoglobin 7.3 g/dL (13.0-16.5); Mean Corp Hgb Conc 30.8 g/dL (32-36); Mean Corpuscular Volume 98.3 fL (80-94); Mean Platelet Vol. 11.3 fl (6.2-12.0); POSITIVE COUNT YES; POSITIVE MORPHOLOGY YES; Platelet Count 332 K/mm3 (150-450); RBC Distribution Width CV 16.7 % (11.6-14.6); RBC Distribution Width SD 59.7 fl (35.1-43.9); Red Blood Count 2.41 M/mm3 (4.6-6.2); White Blood Count 2.1 K/mm3 (4.4-11.0)
[2024-11-09 10:23] LABS: Differential Indicated MANUAL DIFF
[2024-11-09 11:20] LABS: AST(SGOT) 35 U/L (<=37); Alanine Aminotransfer ALT/SGPT 24 U/L (<=46); Albumin, Serum 3.6 g/dL (3.4-4.8); Alkaline Phosphatase 297 U/L (40-129); Anion Gap 10 (5-15); BUN 22 mg/dL (4-19); BUN/Creat Ratio 16.7 RATIO (10-20); Bilirubin, Direct 0.11 mg/dL (0.00-0.30); Calcium,Total 8.8 mg/dL (7.6-11.0); Carbon Dioxide 21.4 mmol/L (21.0-32.0); Chloride 109 mmol/L (98-108); Globulin 2.5 g/dL (2.2-4.2); Glucose 102 mg/dL (70-99); Magnesium 1.9 mg/dL (1.5-2.2); Potassium 4.1 mmol/L (3.3-5.1)
[2024-11-09 11:21] LABS: Neutrophil-Segmented 49 % (47-70); Total Cells Counted 100 (MANUAL DIFF)
[2024-11-13 08:07] LABS: GGTP 67 IU/L (0-65)
[2024-11-16 10:39] LABS: Hematocrit 23.2 % (40-54); Hemoglobin 7.4 g/dL (13.0-16.5); Mean Corp Hgb Conc 31.9 g/dL (32-36); Mean Corpuscular Volume 97.5 fL (80-94); Mean Platelet Vol. 10.0 fl (6.2-12.0); POSITIVE COUNT YES; POSITIVE DIFFERENTIAL YES; POSITIVE MORPHOLOGY YES; Platelet Count 519 K/mm3 (150-450); RBC Distribution Width CV 17.4 % (11.6-14.6); RBC Distribution Width SD 61.6 fl (35.1-43.9); Red Blood Count 2.38 M/mm3 (4.6-6.2); White Blood Count 2.7 K/mm3 (4.4-11.0)
[2024-11-16 10:41] LABS: Differential Indicated MANUAL DIFF
[2024-11-16 11:24] LABS: AST(SGOT) 46 U/L (<=37); Alanine Aminotransfer ALT/SGPT 36 U/L (<=46); Albumin, Serum 3.6 g/dL (3.4-4.8); Alkaline Phosphatase 441 U/L (40-129); Anion Gap 11 (5-15); BUN 21 mg/dL (4-19); BUN/Creat Ratio 17.6 RATIO (10-20); Bilirubin, Direct 0.19 mg/dL (0.00-0.30); Calcium,Total 8.9 mg/dL (7.6-11.0); Carbon Dioxide 22.2 mmol/L (21.0-32.0); Chloride 103 mmol/L (98-108); Globulin 2.6 g/dL (2.2-4.2); Glucose 157 mg/dL (70-99); Magnesium 1.8 mg/dL (1.5-2.2); Potassium 4.4 mmol/L (3.3-5.1)
[2024-11-16 12:32] LABS: Neutrophil-Band 11 % (0-5); Neutrophil-Segmented 50 % (47-70); Total Cells Counted 100 (MANUAL DIFF)
[2024-11-20 14:08] LABS: GGTP 93 IU/L (0-65)
[2024-11-23 10:19] LABS: Hematocrit 23.9 % (40-54); Hemoglobin 7.5 g/dL (13.0-16.5); Mean Corp Hgb Conc 31.4 g/dL (32-36); Mean Corpuscular Volume 98.8 fL (80-94); Mean Platelet Vol. 10.9 fl (6.2-12.0); POSITIVE COUNT YES; POSITIVE DIFFERENTIAL YES; POSITIVE MORPHOLOGY YES; Platelet Count 500 K/mm3 (150-450); RBC Distribution Width CV 17.2 % (11.6-14.6); RBC Distribution Width SD 62.4 fl (35.1-43.9); Red Blood Count 2.42 M/mm3 (4.6-6.2); White Blood Count 2.4 K/mm3 (4.4-11.0)
[2024-11-23 10:59] LABS: Differential Indicated MANUAL DIFF
[2024-11-23 11:13] LABS: Neutrophil-Band 3 % (0-5); Neutrophil-Segmented 35 % (47-70); Total Cells Counted 100 (MANUAL DIFF)
[2024-11-23 11:23] LABS: Reactive Lymphocyte RARE
[2024-11-23 11:36] LABS: Hepatitis B Surface Antigen Nonreactive (Nonreactive)
[2024-11-23 11:45] LABS: AST(SGOT) 17 U/L (<=37); Alanine Aminotransfer ALT/SGPT 11 U/L (<=46); Albumin, Serum 3.6 g/dL (3.4-4.8); Alkaline Phosphatase 400 U/L (40-129); Anion Gap 11 (5-15); BUN 21 mg/dL (4-19); BUN/Creat Ratio 18.5 RATIO (10-20); Bilirubin, Direct 0.10 mg/dL (0.00-0.30); Calcium,Total 8.7 mg/dL (7.6-11.0); Carbon Dioxide 21.1 mmol/L (21.0-32.0); Chloride 106 mmol/L (98-108); Cholesterol 154 mg/dL (<=200); Globulin 2.6 g/dL (2.2-4.2); Glucose 86 mg/dL (70-99); Low Density Lipoprotein Calc. 84 mg/dL; Magnesium 2.1 mg/dL (1.5-2.2); Potassium 4.5 mmol/L (3.3-5.1); Triglycerides 92 mg/dL; Very Low Density Lipoprotein 18 mg/dL (5-40); cholesterol:hdl ratio screen 2.96
[2024-11-26 09:08] LABS: GGTP 45 IU/L (0-65)
== END 2024-11-29 18:00 | disposition home or self-care (01) ==
LOC: LAB 09:29
PROVIDERS: PCP Family Medicine
DX: Z94.4 Liver transplant status (principal); Z48.298 Encounter for aftercare following other organ transplant; Z79.899 Other long term (current) drug therapy; Z51.81 Encounter for therapeutic drug level monitoring; D50.9 Iron deficiency anemia, unspecified
CPT/HCPCS: 36415; 80053; 80061; 80197; 82248; 82977; 83735; 84100; 85025; 87340; 87497

== ENCOUNTER 2024-12-14 09:40 | Outpatient (RCR) | payer OTHER, SELFPAY ==
[2024-11-30 10:25] LABS: Hematocrit 23.6 % (40-54); Hemoglobin 7.3 g/dL (13.0-16.5); Mean Corp Hgb Conc 30.9 g/dL (32-36); Mean Corpuscular Volume 96.3 fL (80-94); Mean Platelet Vol. 9.8 fl (6.2-12.0); POSITIVE COUNT YES; POSITIVE DIFFERENTIAL YES; POSITIVE MORPHOLOGY YES; Platelet Count 480 K/mm3 (150-450); RBC Distribution Width CV 16.7 % (11.6-14.6); RBC Distribution Width SD 59.2 fl (35.1-43.9); Red Blood Count 2.45 M/mm3 (4.6-6.2); White Blood Count 2.5 K/mm3 (4.4-11.0)
[2024-11-30 10:49] LABS: Differential Indicated MANUAL DIFF
[2024-11-30 10:56] LABS: Dohle Bodies 2+; Neutrophil-Band 3 % (0-5); Neutrophil-Segmented 37 % (47-70); Total Cells Counted 100 (MANUAL DIFF)
[2024-11-30 11:00] LABS: AST(SGOT) 19 U/L (<=37); Alanine Aminotransfer ALT/SGPT 7 U/L (<=46); Albumin, Serum 3.7 g/dL (3.4-4.8); Alkaline Phosphatase 470 U/L (40-129); Anion Gap 11 (5-15); BUN 25 mg/dL (4-19); BUN/Creat Ratio 22.3 RATIO (10-20); Bilirubin, Direct 0.39 mg/dL (0.00-0.30); Calcium,Total 9.3 mg/dL (7.6-11.0); Carbon Dioxide 21.9 mmol/L (21.0-32.0); Chloride 108 mmol/L (98-108); Globulin 2.9 g/dL (2.2-4.2); Glucose 62 mg/dL (70-99); Magnesium 2.1 mg/dL (1.5-2.2); Potassium 4.4 mmol/L (3.3-5.1)
[2024-12-04 08:08] LABS: GGTP 29 IU/L (0-65)
[2024-12-07 10:43] LABS: Immature Reticulocyte Fraction 7.90 % (3.00-15.90); Platelet Count 392 K/mm3 (150-450); Reticulocyte Count 1.40 % (0.5-1.5)
[2024-12-07 10:43] LABS: Hematocrit 21.2 % (40-54); Hemoglobin 6.5 g/dL (13.0-16.5); Mean Corp Hgb Conc 30.7 g/dL (32-36); Mean Corpuscular Volume 95.1 fL (80-94); Mean Platelet Vol. 9.9 fl (6.2-12.0); POSITIVE COUNT YES; POSITIVE DIFFERENTIAL YES; POSITIVE MORPHOLOGY YES; Platelet Count 422 K/mm3 (150-450); RBC Distribution Width CV 16.2 % (11.6-14.6); RBC Distribution Width SD 56.9 fl (35.1-43.9); Red Blood Count 2.23 M/mm3 (4.6-6.2); White Blood Count 2.1 K/mm3 (4.4-11.0)
[2024-12-07 11:14] LABS: Bilirubin, Direct 0.11 mg/dL (0.00-0.30); Magnesium 1.8 mg/dL (1.5-2.2)
[2024-12-07 11:34] LABS: Ferritin 32 ng/mL (37-417); Iron 13 ug/dL (65-175); Iron Binding Capacity,Total 269 ug/dL (250-450); Iron Binding Capacity,Unsat 256 ug/dL (228-428)
[2024-12-07 11:50] LABS: Differential Indicated MANUAL DIFF
[2024-12-07 11:58] LABS: Neutrophil-Band 1 % (0-5); Neutrophil-Segmented 55 % (47-70); Total Cells Counted 100 (MANUAL DIFF)
[2024-12-07 11:59] LABS: Dohle Bodies 2+; Polychromasia 1+
[2024-12-08 04:07] LABS: Carcinoembryonic Antigen 1.6 ng/mL (0.0-4.7)
[2024-12-11 16:08] LABS: GGTP 32 IU/L (0-65)
[2024-12-14 10:07] LABS: Hematocrit 20.0 % (40-54); Hemoglobin 6.1 g/dL (13.0-16.5); Mean Corp Hgb Conc 30.5 g/dL (32-36); Mean Corpuscular Volume 94.3 fL (80-94); Mean Platelet Vol. 9.3 fl (6.2-12.0); POSITIVE COUNT YES; POSITIVE DIFFERENTIAL YES; POSITIVE MORPHOLOGY YES; Platelet Count 444 K/mm3 (150-450); RBC Distribution Width CV 16.5 % (11.6-14.6); RBC Distribution Width SD 56.6 fl (35.1-43.9); Red Blood Count 2.12 M/mm3 (4.6-6.2); White Blood Count 2.9 K/mm3 (4.4-11.0)
[2024-12-14 10:10] LABS: Differential Indicated MANUAL DIFF
[2024-12-14 10:35] LABS: Neutrophil-Band 13 % (0-5); Neutrophil-Segmented 55 % (47-70); Total Cells Counted 100 (MANUAL DIFF)
[2024-12-14 10:36] LABS: Red Cell Morphology NORM C+C NORMAL (NORM C&C)
[2024-12-14 11:02] LABS: Magnesium 2.1 mg/dL (1.5-2.2)
[2024-12-14 11:08] LABS: AST(SGOT) 22 U/L (<=37); Alanine Aminotransfer ALT/SGPT 12 U/L (<=46); Albumin, Serum 3.5 g/dL (3.4-4.8); Alkaline Phosphatase 741 U/L (40-129); Anion Gap 9 (5-15); BUN 27 mg/dL (4-19); BUN/Creat Ratio 23.6 RATIO (10-20); Bilirubin, Direct 0.11 mg/dL (0.00-0.30); Calcium,Total 8.9 mg/dL (7.6-11.0); Carbon Dioxide 24.0 mmol/L (21.0-32.0); Chloride 107 mmol/L (98-108); Globulin 2.9 g/dL (2.2-4.2); Glucose 109 mg/dL (70-99); Potassium 4.4 mmol/L (3.3-5.1)
[2024-12-16 17:08] LABS: GGTP 30 IU/L (0-65)
== END 2024-12-14 18:00 | disposition home or self-care (01) ==
LOC: LAB 09:40
PROVIDERS: Internal Medicine Hematology & Oncology; PCP Family Medicine
DX: C18.9 Malignant neoplasm of colon, unspecified (principal); C18.7 Malignant neoplasm of sigmoid colon; Z94.4 Liver transplant status; Z48.298 Encounter for aftercare following other organ transplant; Z79.899 Other long term (current) drug therapy; Z51.81 Encounter for therapeutic drug level monitoring
CPT/HCPCS: 36415; 80053; 80197; 82248; 82378; 82728; 82977; 83540; 83550; 83735; 84100; 85025; 85045; 87497

== ENCOUNTER 2024-12-21 12:31 | Emergency (ER) | payer OTHER, SELFPAY ==
[2024-12-21] VITALS (14 sets, daily range): BP systolic 106–139; BP diastolic 62–87; PULSE 80–95; RESP 16–26; TEMP 36.5–37.9; O2SAT 95–995; BMI 15.7
[2024-12-21 13:21] LABS: Hematocrit 18.4 % (40-54); Mean Corp Hgb Conc 30.4 g/dL (32-36); Mean Corpuscular Volume 90.2 fL (80-94); Mean Platelet Vol. 9.7 fl (6.2-12.0); POSITIVE COUNT YES; POSITIVE DIFFERENTIAL YES; POSITIVE MORPHOLOGY YES; Platelet Count 566 K/mm3 (150-450); RBC Distribution Width CV 17.1 % (11.6-14.6); RBC Distribution Width SD 55.7 fl (35.1-43.9); Red Blood Count 2.04 M/mm3 (4.6-6.2)
[2024-12-21 13:27] LABS: Hemoglobin 5.6 g/dL (13.0-16.5); White Blood Count 1.9 K/mm3 (4.4-11.0)
[2024-12-21 13:29] LABS: Prothrombin Time (Protime)PT. 15.3 SECONDS (11.7-14.9)
[2024-12-21 13:30] LABS: Differential Indicated MANUAL DIFF; Partial Thromboplast Time 39.2 Seconds (24.1-36.2)
[2024-12-21 13:38] LABS: AST(SGOT) 17 U/L (<=37); Alanine Aminotransfer ALT/SGPT 20 U/L (<=46); Albumin, Serum 3.3 g/dL (3.4-4.8); Alkaline Phosphatase 829 U/L (40-129); Anion Gap 10 (5-15); BUN 30 mg/dL (4-19); BUN/Creat Ratio 21.4 RATIO (10-20); Bilirubin, Direct 0.12 mg/dL (0.00-0.30); Calcium,Total 8.5 mg/dL (7.6-11.0); Carbon Dioxide 23.7 mmol/L (21.0-32.0); Chloride 105 mmol/L (98-108); Estimated Creatinine Clearance 35.75 ml/min (50-250); Globulin 2.9 g/dL (2.2-4.2); Glucose 94 mg/dL (70-99); Lipase 17 U/L (13-75); Potassium 4.3 mmol/L (3.3-5.1)
[2024-12-21 14:04] LABS: Ammonia 11.6 umol/L (16-60)
[2024-12-21 14:24] LABS: Neutrophil-Band 6 % (0-5); Neutrophil-Segmented 28 % (47-70); Total Cells Counted 100 (MANUAL DIFF)
[2024-12-21 14:25] LABS: Dohle Bodies 3+; Toxic Granulation 2+
[2024-12-21 15:25] LABS: Mucous, Urine 0 SEEN /hpf (<or=2+)
[2024-12-21 16:32] LABS: Color, Urine Yellow (Yellow); Glucose, Dipstick Normal (Normal); Ketone-Dipstick Negative (Negative); Leukocyte Esterase-Dipstick Negative /ul (Negative); Nitrite-Dipstick Negative (Negative); Occult Blood-Urine Negative /ul (Negative); Protein-Dipstick 15 mg/dl (Negative); Specific Gravity, Urine 1.010 (1.002-1.030); Urine Bilirubin Dipstick Negative (Negative)
[2024-12-21] MEDS: Pantoprazole Sodium 40 MG in 0.9% Normal Saline (100mL MB+) 100 ML 300 MG IV (16:38)
[2024-12-21 17:17] LABS: Red Blood Cells-Urine 0-5 SEEN /hpf (0-5); Squamous Epithelial Cells - UA 0-5 SEEN /hpf (0-5)
== END 2024-12-21 20:13 | disposition left against medical advice (07) ==
PROVIDERS: Emergency Provider Student in an Organized Health Care Education/Training Program; PCP Family Medicine; Visit Provider Student in an Organized Health Care Education/Training Program
DX: K92.2 Gastrointestinal hemorrhage, unspecified (principal); Z94.4 Liver transplant status; D64.9 Anemia, unspecified; Z90.49 Acquired absence of other specified parts of digestive tract; Z53.29 Procedure and treatment not carried out because of patient's decision for other reasons
CPT/HCPCS: 36430; 74177; 80048; 80076; 81001; 82140; 82274; 83690; 85025; 85610; 85730; 86644; 86850; 86900; 86901; 96365; 99282; P9016; Q9967; A4216

== ENCOUNTER 2025-01-04 08:43 | Outpatient (CLI) | payer OTHER, SELFPAY ==
[2025-01-04 09:21] LABS: Hematocrit 29.7 % (40-54); Hemoglobin 9.2 g/dL (13.0-16.5); Mean Corp Hgb Conc 31.0 g/dL (32-36); Mean Corpuscular Volume 89.2 fL (80-94); Mean Platelet Vol. 10.0 fl (6.2-12.0); POSITIVE COUNT YES; POSITIVE DIFFERENTIAL YES; POSITIVE MORPHOLOGY YES; Platelet Count 374 K/mm3 (150-450); RBC Distribution Width CV 17.3 % (11.6-14.6); RBC Distribution Width SD 56.4 fl (35.1-43.9); Red Blood Count 3.33 M/mm3 (4.6-6.2); White Blood Count 1.6 K/mm3 (4.4-11.0)
[2025-01-04 09:26] LABS: Differential Indicated MANUAL DIFF
[2025-01-04 09:40] LABS: AST(SGOT) 35 U/L (<=37); Alanine Aminotransfer ALT/SGPT 20 U/L (<=46); Albumin, Serum 3.4 g/dL (3.4-4.8); Alkaline Phosphatase 456 U/L (40-129); Anion Gap 10 (5-15); BUN 24 mg/dL (4-19); BUN/Creat Ratio 27.1 RATIO (10-20); Bilirubin, Direct 0.13 mg/dL (0.00-0.30); Calcium,Total 8.7 mg/dL (7.6-11.0); Carbon Dioxide 22.3 mmol/L (21.0-32.0); Chloride 102 mmol/L (98-108); Globulin 2.8 g/dL (2.2-4.2); Glucose 159 mg/dL (70-99); Magnesium 1.8 mg/dL (1.5-2.2); Potassium 4.0 mmol/L (3.3-5.1)
[2025-01-04 10:17] LABS: Neutrophil-Band 4 % (0-5); Neutrophil-Segmented 51 % (47-70); Total Cells Counted 100 (MANUAL DIFF)
[2025-01-07 07:07] LABS: GGTP 31 IU/L (0-65)
== END 2025-01-04 23:59 | disposition home or self-care (01) ==
LOC: MEDOUTP 08:43
PROVIDERS: PCP Family Medicine; Referring Provider Internal Medicine Critical Care Medicine; Visit Provider Internal Medicine Critical Care Medicine
DX: Z94.4 Liver transplant status (principal); Z48.298 Encounter for aftercare following other organ transplant; Z79.899 Other long term (current) drug therapy; Z51.81 Encounter for therapeutic drug level monitoring
CPT/HCPCS: 36592; 80053; 80197; 82248; 82977; 83735; 84100; 85025; 87497; A4216

== ENCOUNTER 2025-01-11 08:40 | Outpatient (CLI) | payer OTHER, SELFPAY ==
[2025-01-11 09:12] LABS: Hematocrit 27.2 % (40-54); Hemoglobin 8.6 g/dL (13.0-16.5); Mean Corp Hgb Conc 31.6 g/dL (32-36); Mean Corpuscular Volume 86.9 fL (80-94); Mean Platelet Vol. 10.1 fl (6.2-12.0); POSITIVE COUNT YES; POSITIVE DIFFERENTIAL YES; POSITIVE MORPHOLOGY YES; Platelet Count 423 K/mm3 (150-450); RBC Distribution Width CV 17.8 % (11.6-14.6); RBC Distribution Width SD 56.3 fl (35.1-43.9); Red Blood Count 3.13 M/mm3 (4.6-6.2); White Blood Count 2.1 K/mm3 (4.4-11.0)
[2025-01-11 09:41] LABS: AST(SGOT) 15 U/L (<=37); Alanine Aminotransfer ALT/SGPT 10 U/L (<=46); Albumin, Serum 3.0 g/dL (3.4-4.8); Alkaline Phosphatase 301 U/L (40-129); Anion Gap 10 (5-15); BUN 33 mg/dL (4-19); BUN/Creat Ratio 28.4 RATIO (10-20); Bilirubin, Direct 0.20 mg/dL (0.00-0.30); Calcium,Total 8.7 mg/dL (7.6-11.0); Carbon Dioxide 21.5 mmol/L (21.0-32.0); Chloride 104 mmol/L (98-108); Globulin 3.1 g/dL (2.2-4.2); Glucose 116 mg/dL (70-99); Magnesium 1.9 mg/dL (1.5-2.2); Potassium 4.6 mmol/L (3.3-5.1)
[2025-01-11 10:30] LABS: Differential Indicated MANUAL DIFF
[2025-01-11 10:43] LABS: Neutrophil-Segmented 50 % (47-70); Total Cells Counted 100 (MANUAL DIFF)
[2025-01-11 10:44] LABS: Scan Smear per Review Criteria MANUAL DIFF
[2025-01-11 10:46] LABS: Reactive Lymphocyte 1+
[2025-01-13 16:09] LABS: GGTP 27 IU/L (0-65)
== END 2025-01-11 23:59 | disposition home or self-care (01) ==
LOC: MEDOUTP 08:41
PROVIDERS: PCP Family Medicine; Referring Provider Internal Medicine Critical Care Medicine; Visit Provider Internal Medicine Critical Care Medicine
DX: Z48.298 Encounter for aftercare following other organ transplant (principal); Z94.4 Liver transplant status; Z51.81 Encounter for therapeutic drug level monitoring; Z79.899 Other long term (current) drug therapy
CPT/HCPCS: 36592; 80053; 80197; 82248; 82977; 83735; 84100; 85025; 87497; A4216

== ENCOUNTER 2025-01-15 13:42 | Emergency (ER) | payer OTHER, SELFPAY ==
[2025-01-15 13:43] VITALS: BP 122/72; PULSE 71; RESP 19; TEMP 36.6; O2SAT 100; BMI 16.6
[2025-01-15 14:07] VITALS: O2SAT 100
--- NOTE | 2025-01-15 14:07 | EKG12_ITS ---
Test Reason : Blood Pressure : */* mmHG Vent. Rate : 71 BPM Atrial Rate : 71 BPM P-R Int : 136 ms QRS Dur : 90 ms QT Int : 422 ms P-R-T Axes : 29 60 63 degrees QTcB Int : 458 ms Normal sinus rhythm Normal ECG Confirmed by VLADIMIR MILIAN, INOCENCIO ([id number]), acquisition editor PATSY LANGLEY ([id number]) on 01/16/2025 9:18:36 AM Referred By: LOUIE Confirmed By: INOCENCIO GILBERT MD
--- NOTE | 2025-01-15 14:08 | CT_ITS ---
PROCEDURE: ABDOMEN/PELVIS W IV CONT ONLY 01/15/2025 REASON FOR EXAM: LLQ PAIN, HX OF LIVER TRANSPLANT APRIL TECHNIQUE: Procedure Code: [id number] Modality: CT Procedure: ABDOMEN/PELVIS W IV CONT ONLY Coronal and Sagittal reconstruction series were provided. CONTRAST: 100 cc of Isovue 370 One or more dose reduction techniques were used (e.g., Automated exposure control, adjustment of the mA and/or kV according to patient size, use of iterative reconstruction technique. COMPARISON: CT abdomen and pelvis 12/21/2024 FINDINGS: Lung bases: Unremarkable. Liver: Postsurgical changes of the liver. No mass. Gallbladder: Redemonstrated cholecystectomy with stable pneumobilia. Spleen: Normal size. Pancreas: Normal size without evidence of mass surrounding inflammation or ductal dilation. Adrenals: No masses. Kidneys: Normal renal sizes. No hydronephrosis. Bladder: Unremarkable. Reproductive Organs: Prostate nonenlarged. No pelvic masses. Bowel: Redemonstrated surgical anastomosis at the small bowel loops and sigmoid colon. No bowel obstruction. No inflammatory changes. Appendix: The appendix is not identified. There is no inflammatory process identified in the right lower quadrant to suggest appendicitis. Lymph nodes: Unremarkable. Vasculature: Mild diffuse atherosclerotic calcifications are noted. No aneurysm. Peritoneum / Retroperitoneum: No free fluid or air. Bones: No acute fractures. Left hip ORIF. CT/Abdomen/Pelvis W IV Cont ONLY IMPRESSION: No acute findings in the abdomen or pelvis. No significant interval change. Reading Location: [facility]
[2025-01-15 14:18] LABS: Hematocrit 23.9 % (40-54); Hemoglobin 7.7 g/dL (13.0-16.5); Mean Corp Hgb Conc 32.2 g/dL (32-36); Mean Corpuscular Volume 86.9 fL (80-94); Mean Platelet Vol. 11.2 fl (6.2-12.0); POSITIVE COUNT YES; POSITIVE DIFFERENTIAL YES; POSITIVE MORPHOLOGY YES; Platelet Count 235 K/mm3 (150-450); RBC Distribution Width CV 18.5 % (11.6-14.6); RBC Distribution Width SD 57.9 fl (35.1-43.9); Red Blood Count 2.75 M/mm3 (4.6-6.2); White Blood Count 2.3 K/mm3 (4.4-11.0)
[2025-01-15 14:19] LABS: Differential Indicated MANUAL DIFF
--- OUTSIDE RECORDS SUMMARY | 2025-01-15 14:20 | XMS RPT_ITS | CCD ---
Author Organization [facility] Care Team Providers Care License Clerk Name Role Phone Dr. Olive Valera Primary Care Provider Dr. Olive Valera Referring Provider Dr. Robe Zavala Attending Provider Olive Valera MD Primary Care Provider Dr. Olive Valera Primary Care Provider Dr. Olive Valera Referring Provider Dr. Robe Zavala Attending Provider Olive Valera MD Primary Care Provider Olive Valera MD Primary Care Provider Dr. Olive Valera Primary Care Provider Dr. Olive Valera Referring Provider Dr. Robe Zavala Attending Provider Dr. Julio Hanson Attending Provider Dr. Olive Valera DO Primary Care Provider Dr. Robe Zavala MD Attending Provider Dr. Robe Zavala MD Referring Provider Dr. Olive Valera DO Referring Provider Dr. Julio Hanson DO Attending Provider Dr. Babs Marley MD Attending Provider [phone] Donlel MILIAN, Dr. Arzate Referring Provider Stan MILIAN, Dr. Ernie Choi Attending Provider Barbara [facility], Lashell Ferreira Unavailable Mila Husain [facility], Chad Figueroa Unavailable Un available Racquel RN, Barbie Unavailable Unavailable Cass SMALLWOOD, Hosea Choi Unavailable Dr. Olive Valera DO Primary Care Provider Dr. Olive Valera DO Referring Provider Donell MILIAN, Dr. Arzate Other Provider MARTINAkosua Attending Provider MARTINAkosua Referring Provider Cass SMALLWOOD, Hosea Choi Unavailable Dr. Olive Valera DO Primary Care Provider Dr. Olive Valera DO Referring Provider Herman MILIAN, Dr. Nagel Other Provider Herman MILIAN, Dr. Nagel Attending Provider Dr. Olive Valera DO Primary Care Provider Dr. Robe Zavala MD Other Provider Dr. Olive Valera DO Primary Care Provider [phone] Dr. Olive Valera DO Referring Provider Dr. Babs Marley MD Attending Provider Dr. Babs Marley MD Referring Provider Dr. Olive Valera DO Primary Care Provider [phone] Donell MILIAN, Dr. Arzate Other Provider MARTHAAkosua Attending Provider MARTINAkosua Referring Provider Dr. Olive Valera DO Primary Care Physician Herman MILIAN, Dr. Nagel Attending Physician [phone] Donell MILIAN, Dr. Arzate Nurse Practitioner Akos[place] THOMAS Attending Physician [place] THOMAS Referring Provider Herman MILIAN, Dr. Nagel Nurse Practitioner Donlel MILIAN, Dr. Arzate Attending Physician Cass , Hosea Jimbo Unavailable Mila Husain [facility], Chad Figueroa Unavailable Un available Barbie Clement RN Unavailable Unavailable MORAIMA, OLIVE L Primary Care Unavailable CONSULT, HEPATOBILIARY Consulting Unavailab le SONYA TREVIÑO Admitting Unavailable SONYA TREVIÑO Attending Unavailable DONELL, CHATHUR Referring Unavailable MORAIMA, OLIVE L Primary Care Unavailable DONELL, CHATHUR Referring Unavailable DONELL, CHATHUR Attending Unavailable Dalia THOMAS Referring Unavailable Dalia THOMAS Admitting Unavailable MORAIMA, OLIVE L Primary Care Unavailable SONYA TREVIÑO Attending Unavailable CONSULT, HEPATOBILIARY Consulting Unavailab le MORAIMA, OLIVE L Primary Care Unavailable DONELL, CHATHUR Referring Unavailable DONELL, CHATHUR Attending Unavailable MORAIMA, OLIVE L Primary Care Unavailable EITAN, SOMASHEKAR G Attending Unavailabl e EITAN, SOMASHEKAR G Referring Unavailabl e MORAIMA, OLIVE L Primary Care Unavailable DONELL, CHATHUR Referring Unavailable EITAN, SOMASHEKAR G Attending Unavailabl e MORAIMA, OLIVE L Primary Care Unavailable MICHELLE BARRERA Referring Unavailable ALEBRAHIM, MUSAB Admitting Unavailable ALEBRAHIM, MUSAB Attending Unavailable MORAIMA, OLIVE L Primary Care Unavailable MARIBEL BROOKS Attending Unavailable MARIBEL BROOKS Referring Unavailable MORAIMA, OLIVE L Primary Care Unavailable MARIBEL BROOKS Attending Unavailable DONELL, CHATHUR Referring Unavailable MORAIMA, OLIVE L Primary Care Unavailable SELF, SELF Referring Unavailable KATIA SHELTON Attending Unavailable MORAIMA, OLIVE L Primary Care Unavailable DONELL, CHATHUR Attending Unavailable DONELL, CHATHUR Referring Unavailable MORAIMA, OLIVE L Primary Care Unavailable DONELL, CHATHUR Attending Unavailable DONELL, CHATHUR Referring Unavailable MORAIMA, OLIVE L Primary Care Unavailable DONELL, CHATHUR Attending Unavailable DONELL, CHATHUR Referring Unavailable MORAIMA, OLIVE L Primary Care Unavailable BA BOLAND Attending Unavailable DONELL, CHATHUR Referring Unavailable MORAIMA, OLIVE L Primary Care Unavailable DONELL, CHATHUR Attending Unavailable DONELL, CHATHUR Referring Unavailable MORAIMA, OLIVE L Primary Care Unavailable ANALISA DONOVAN Attending Unavailable ANALISA DONOVAN Referring Unavailable MORAIMA, OLIVE L Primary Care Unavailable BA BOLAND Attending Unavailable DONELL, CHATHUR Referring Unavailable MORAIMA, OLIVE L Primary Care Unavailable MIROSLAVA JOINER Attending Unavailable MARIBEL BROOKS Referring Unavailable MORAIMA, OLIVE L Primary Care Unavailable MARBIEL BROOKS Attending Unavailable TEE BROOKSETI J Referring Unavailable MORAIMA, OLIVE L Primary Care Unavailable MIROSLAVA JOINER Admitting Unavailable MIROSLAVA JOINER Attending Unavailable MORAIMA, OLIVE L Primary Care Unavailable DONELL, CHATHUR Attending Unavailable DONELL, CHATHUR Referring Unavailable MORAIMA, OLIVE L Primary Care Unavailable DONELL, CHATHUR Referring Unavailable Dalia THOMAS Attending Unavailable Dalia THOMAS Referring Unavailable MORAIMA, OLIVE L Primary Care Unavailable MORAIMA, OLIVE L Primary Care Unavailable JESS GAMEZ Attending Unavailable DONELL, CHATHUR Referring Unavailable Dalia THOMAS Referring Unavailable MORAIMA, OLIVE L Primary Care Unavailable CICI DE LA CRUZ Attending Unavailable MORAIMA, OLIVE L Primary Care Unavailable DONELL, CHATHUR Referring Unavailable DONELL, CHATHUR Attending Unavailable MORAIMA, OLIVE L Primary Care Unavailable DONELL, CHATHUR Referring Unavailable Dalia THOMAS Referring Unavailable MORAIMA, OLIVE L Primary Care Unavailable Dalia THOMAS Attending Unavailable MORAIMA, OLIVE L Primary Care Unavailable DONELL, CHATHUR Attending Unavailable DONELL, CHATHUR Referring Unavailable MORAIMA, OLIVE L Primary Care Unavailable DONELL, CHATHUR Attending Unavailable DONELL, CHATHUR Referring Unavailable MORAIMA, OLIVE L Primary Care Unavailable CARMEN CASTELLANOS Attending Unavailable HOSEA ODELL Referring Unavailabl e Dalia THOMAS Attending Unavailable MORAIMA, OLIVE L Primary Care Unavailable SELF, SELF Referring Unavailable MORAIMA, OLIVE L Primary Care Unavailable MAGMATTHEW JOSUÉ Admitting Unavailable MAGORIEN JOSUÉ Attending Unavailable SELF, SELF Referring Unavailable MORAIMA, OLIVE L Primary Care Unavailable CONSULT, HEPATOBILIARY Consulting Unavailab SONYA Caba Admitting Unavailable SONYA TREVIÑO Referring Unavailable JONNY BARRIGA Attending Unavailabl e Moraima, Olive Referring Unavailable Isckarus, Mansour Attending Unavailable Moraima, Olive Primary Care Unavailable Moraima, Olive Referring Unavailable Isckarus, Mansour Attending Unavailable Moraima, Olive Primary Care Unavailable Moraima, Olive Primary Care Unavailable Moraima, Olive Referring Unavailable Isckarus, Mansour Attending Unavailable Julio Hanson Attending Unavailable Moraima, Olive Referring Unavailable Moraima, Olive Primary Care Unavailable Donell, Chathur Referring Unavailable Donell, Chathur Attending Unavailable Moraima, Olive Primary Care Unavailable LOU DOAN Referring Unava ilable Donell, Chathur Consulting Unavailable LOU DOAN Attending Unava ilable Moraima, Olive Primary Care Unavailable LOU DOAN Referring Unava ilable LOU DOAN Attending Unava ilable Donell, Chathur Consulting Unavailable Moraima, Olive Primary Care Unavailable Isckarus, Mansour Consulting Unavailable Donell, Chathur Referring Unavailable Donell, Chathur Attending Unavailable Moraima, Olive Primary Care Unavailable LOU DOAN Referring Unava ilable Donell, Chathur Consulting Unavailable LOU DOAN Attending Unava ilable Moraima, Olive Primary Care Unavailable Isckarus, Mansour Consulting Unavailable Donell, Chathur Consulting Unavailable Moraima, Olive Primary Care Unavailable LOU DOAN Attending Unava ilable LOU DOAN Referring Unava ilable Isckarus, Mansour Consulting Unavailable LOU DOAN Referring Unava ilable FRANKI, LOU URIBE Attending Unava ilable Donell, Chathur Consulting Unavailable Moraima, Olive Primary Care Unavailable Isckarus, Mansour Consulting Unavailable LOU DOAN Referring Unava ilable LOU DOAN Attending Unava ilable Donell, Chathur Consulting Unavailable Moraima, Olive Primary Care Unavailable Isckarus, Mansour Consulting Unavailable Donell, Chathur Referring Unavailable Donell, Chathur Attending Unavailable Moraima, Olive Primary Care Unavailable Donell, Chathur Referring Unavailable Donell, Chathur Attending Unavailable Moraima, Olive Primary Care Unavailable Donell, Chathur Referring Unavailable Donell, Chathur Attending Unavailable Moraima, Olive Primary Care Unavailable LOU DOAN Consulting Unava ilable Isckarus, Mansour Referring Unavailable Isckarus, Mansour Attending Unavailable Moraima, Olive Primary Care Unavailable Donell, Chathur Attending Unavailable Moraima, Olive Primary Care Unavailable Donell, Chathur Referring Unavailable Donell, Chathur Attending Unavailable Moraima, Olive Primary Care Unavailable LOU DOAN Referring Unava ilable Donell, Chathur Consulting Unavailable LOU DOAN Attending Unava ilable Moraima, Olive Primary Care Unavailable Isckarus, Mansour Consulting Unavailable Donell, Chathur Referring Unavailable Donell, Chathur Attending Unavailable Moraima, Olive Primary Care Unavailable Michelle Barrera Attending Unavailable Moraima, Olive Primary Care Unavailable LOU DOAN Referring Unava ilable Donell, Chathur Consulting Unavailable LOU DOAN Attending Unava ilable Moraima, Olive Primary Care Unavailable Ernie Pierce Attending Unavailable Moraima, Olive Referring Unavailable Moraima, Olive Primary Care Unavailable Moraima DO, Dr. Olive Primary Care Physician Donell MILIAN, Dr. Arzate Attending Physician Donell MILIAN, Dr. Arzate Referring Provider [phone] Donell MILIAN, Dr. Arzate Nurse Practitioner MARTINAkosua Attending Physician MARTINAkosua Referring Provider Herman MILIAN, Dr. Nagel Nurse Practitioner Dr. Olive Valera DO Referring Provider Dr. Robe Zavala MD Attending Physician Josselin MILIAN, Dr. Vinson Attending Physician Unavaila john Barrera MD, Dr. Vinson Emergency Department Physici an Unavailable Herman MILIAN, Dr. Nagel Referring Provider [phone] MARTINAkosuaNETH Nurse Practitioner Medications Current Medications Medication Drug Class(es) Dates Sig (Normalized) Sig (Original) acetaminophen 325 mg / HYDROcodone bitartrate 5 mg oral tablet (1 source) Opioid Agonist Start: 02-28-2022 End: 03-05-2022 take 1-2 tablets by mouth every four hours as needed hydroCODone-acetami nophen ([place]) 5-325 MG tablet Indications: Ulcerative pancolitis with other complication , Anal pain Take 1-2 tablets by mouth every 4 hours as needed for up to 5 days. 20 tablet 0 02/28/2022 03/05/2022 Active alteplase 2 MG Recon Soln (5 sources) Start: 12-30-2024 alteplase 2 MG Recon Soln 2 mg by Intracatheter route once as needed for Catheter Clearance (For an occluded line) for up to 1 dose. 1 Each 12/30/2024 Active Start: 06-09-2024 End: 06-20-2024 alteplase 2 MG Recon Soln 2 mg by Intracatheter route once as needed for Catheter Clearance (For an occluded line) for up to 1 dose. 1 Each 06/09/2024 06/20/2024 Discontinued Start: 06-09-2024 alteplase 2 MG Recon Soln 2 mg by Intracatheter route once as needed for Catheter Clearance (For an occluded line) for up to 1 dose. 1 Each 06/09/2024 Active aspirin 81 mg chewable tablet (20 sources) Platelet Aggregation Inhibitor, Nonsteroidal Anti-inflammatory Drug Start: 08-17-2024 Start: 08-11-2024 End: 12-31-2024 take 81 mg by mouth once daily 81 mg, Oral, DAILY, Fir st dose on Thu12/27/24 at 0900, Until Discontinued Start: 08-11-2024 aspirin (Aspir in Low Dose) 81 MG Chew Tab chewable tablet Chew 1 tablet daily. 08/11/2024 Active Start: 07-29-2024 End: 08-09-2024 take 1 tablet by mouth once daily Aspirin Low Dose 81 MG Chew Tab chewable tablet CHEW 1 TABLET BY MOUTH EVERY DAY 90 tablet 2 07/29/2024 08/09/2024 Discontinued (Dose adjustment (suppress cancel msg)) Start: 06-11-2024 End: 07-05-2024 aspirin 81 MG Chew Tab chewa ble tablet Chew 1 tablet daily. 30 tablet 2 06/10/2024 12:22 PM EDT 06/11/2024 07/05/2024 Discontinued (Reorder) Start: 04-14-2024 End: 04-14-2024 324 mg, Oral, ONCE, 1 dose, On Thu04/14/24 at 1115, Patient to receive at least 30 minutes prior to procedure. Instruct patient to chew and not swallow., Pre-op/Pre-Proc calcium carbonate 1500 mg / cholecalciferol 0.01 mg oral tablet (8 sources) Vitamin D Start: 08-17-2024 Start: 08-17-2024 Calcium Carbonate / Vitamin D (9 sources) take 1 tablet by mouth once daily Calcium Carbonate-Vitamin D (CALCIUM-CARB 600 + D PO) Take 1 tablet by mouth daily. Active calcium polycarbophil 625 mg oral tablet (18 sources) Start: End: ciprofloxacin 500 mg oral tablet (20 sources) Quinolone Antimicrobial Start: End: take 1 tablet by mouth twice daily Ciprofloxacin 500 MG tablet Take 1 tablet by mouth 2 times daily for 7 days. 14 tablet 02/25/2024 03/03/2024 Active Start: 12-02-2023 End: 12-12-2023 Start: 04-01-2023 End: 04-11-2023 DIPHENOXYLATE-ATROPINE PO (1 source) DIPHENOXYLATE-AT ROPINE PO Take by mouth. 0 Active doxycycline monohydrate 100 mg oral capsule (11 sources) Tetracycline- class Drug Start: Start: 08-09-2024 End: 08-23-2024 take 1 capsule by mouth every twelve hours in the evening Doxycycline monohydrate 100 MG capsule Take 1 capsule by mouth every 12 hours for 13 days. 26 capsule 08/09/2024 5:16 PM EDT 08/10/2024 08/23/2024 Active ertapenem 1000 mg injection (3 sources) Penem Antibacterial Start: 06-11-2024 End: 06-17-2024 inject 1 dose intravenously every twenty-four hours Ertapenem injection 1 g per dose, IV infusion every 24 hours. *diluent and final concentration at discretion of receiving pharmacy* 7 Each 06/11/2024 06/17/2024 Active ibuprofen 600 mg oral tablet (5 sources) Nonsteroidal Anti-inflammatory Drug Start: 06-06-2021 End: 06-13-2021 take 1 tablet by mouth every eight hours ibuprofen 600 MG tablet Take 1 tablet by mouth every 8 hours for 7 days. 21 tablet 0 06/06/2021 Active Start: 06-04-2021 End: 06-06-2021 take 1 tablet by mouth every eight hours ibuprofen (MOTRIN) tablet 600 mg End: 12-23-2023 take 1 tablet by mouth every six hours as needed Ibuprofen 200 MG tablet Take 1 tablet by mouth every 6 hours as needed for Mild Pain. 12/23/2023 Discontinued (Therapy completed) lansoprazole 30 mg delayed release oral capsule (1 source) Proton Pump Inhibitor Start: 12-26-2024 take 1 capsule by mouth once daily lansoprazole [address] capsule TAKE 1 CAPSULE BY MOUTH EVERY DAY 90 capsule 1 12/26/2024 Active predniSONE 2.5 mg oral tablet (20 sources) Start: 08-22-2024 take 1 tablet by mouth once daily predniSONE 2.5 MG tablet Take 1 tablet by mouth daily. 30 tablet 5 08/22/2024 Active Start: 07-13-2024 End: 08-22-2024 Start: 06-11-2024 End: 12-26-2024 predniSONE 5 MG tablet Take 4 tablets by NG tube route daily for 4 days, THEN 3 tablets daily for 7 days, THEN 2 tablets daily for 7 days, THEN 1 tablet daily for 7 days. 70 tablet 2 06/10/2024 12:22 PM EDT 06/11/2024 12/26/2024 Active Start: 09-25-2023 End: 12-01-2023 tacrolimus 1 mg oral capsule (20 sources) Calcineurin Inhibitor Immunosuppressant Start: 12-31-2024 take 3 capsules by mouth once daily in the morning, then take 2 capsules by mouth once daily in the evening Tacrolimus (PROGRAF) 1 MG capsule Take 3 capsules by mouth Every morning AND 2 capsules every evening. 150 capsule 11 12/31/2024 Active Start: 12-30-2024 End: 12-31-2024 Tacrolimus (PROGRAF) capsule 3 mg Start: 12-29-2024 End: 12-29-2024 take 1 dose by mouth once 4 mg, Oral, ONCE, 1 dose, On Thu12/29/24 at 2000, Do not split, break, crush, or open doses of this medication. Contact pharmacy if altered dose or route needed. Do not split, break, crush, or open doses of this medication. Contact pharmacy if altered dose or route needed. Start: 12-27-2024 End: 12-29-2024 take 4 mg by mouth once daily 4 mg, Oral, DAILY, First dose on Thu12/27/24 at 0900, Until Discontinued, ---MEDICATION EXPOSURE PRECAUTIONS--- Do not split, break, crush, or open doses of this medication. Contact pharmacy if altered dose or route needed., On hold since Thu12/28/2024 at 1134 until manually unheld Start: 09-09-2024 End: 12-31-2024 take 4 capsules by mouth once daily in the morning, then take 3 capsules by mouth once daily in the evening Tacrolimus (PROGRAF) 1 MG capsule Take 4 capsules by mouth Every morning AND 3 capsules every evening. 210 capsule 5 09/09/2024 12/31/2024 Discontinued Start: 08-17-2024 Start: 08-17-2024 take 3 capsules by m outh every twelve hours Start: 08-10-2024 take 1 capsule by mo uth every twelve hours Tacrolimus (PROGRAF) 1 MG capsule Take 4 capsules by mouth every 12 hours. 720 capsule 1 08/10/2024 Active Start: 08-09-2024 take 1 capsule by mo uth twice daily Tacrolimus (PROGRAF) 1 MG capsule Take 3 capsules by mouth 2 times daily. 08/09/2024 Active Start: 08-08-2024 End: 08-09-2024 take 4 mg by mouth twice daily 4 mg, Oral, 2 TIMES ENDER LY (Solid Organ Transplant), First dose (after last modification) on Thu08/08/24 at 2000, Until Discontinued, ---MEDICATION EXPOSURE PRECAUTIONS--- Do not split, break, crush, or open doses of this medication. Contact pharmacy if altered dose or route needed. Start: 08-08-2024 End: 08-08-2024 take 1 capsule by mouth every twenty-four hours 4 mg, Oral, EVERY 24 HOURS, First dose (after last modification) on Thu08/08/24 at 0800, Until Discontinued, ---MEDICATION EXPOSURE PRECAUTIONS--- Do not split, break, crush, or open doses of this medication. Contact pharmacy if altered dose or route needed. Start: 08-07-2024 End: 08-07-2024 take 1 dose by mouth once 1 mg, Oral, ONCE, 1 dose, On Thu08/07/24 at 1300, Do not split, break, crush, or open doses of this medication. Contact pharmacy if altered dose or route needed. Do not split, break, crush, or open doses of this medication. Contact pharmacy if altered dose or route needed. Start: 08-06-2024 End: 08-07-2024 take 1 capsule by mouth every twelve hours 3 mg, Oral, EVERY 12 HOURS NON-STANDARD, First dose (after last modification) on Thu08/06/24 at 2000, Until Discontinued, ---MEDICATION EXPOSURE PRECAUTIONS--- Do not split, break, crush, or open doses of this medication. Contact pharmacy if altered dose or route needed. Start: 08-05-2024 End: 08-06-2024 take 1 capsule by mouth every twelve hours 2 mg, Oral, EVERY 12 HOURS NON-STANDARD, First dose (after last modification) on Thu08/05/24 at 0800, Until Discontinued, ---MEDICATION EXPOSURE PRECAUTIONS--- Do not split, break, crush, or open doses of this medication. Contact pharmacy if altered dose or route needed. Start: 08-03-2024 End: 08-04-2024 take 1 capsule by mouth every twelve hours 3 mg, Oral, EVERY 12 HOURS NON-STANDARD, First dose (after last modification) on Thu08/03/24 at 2000, Until Discontinued, ---MEDICATION EXPOSURE PRECAUTIONS--- Do not split, break, crush, or open doses of this medication. Contact pharmacy if altered dose or route needed. Start: 08-02-2024 End: 08-03-2024 take 1 capsule by mouth every twelve hours 4 mg, Oral, EVERY 12 HOURS NON-STANDARD, First dose (after last modification) on Thu08/02/24 at 2000, Until Discontinued, ---MEDICATION EXPOSURE PRECAUTIONS--- Do not split, break, crush, or open doses of this medication. Contact pharmacy if altered dose or route needed. Start: 08-01-2024 End: 08-02-2024 take 4 mg by mouth once daily 4 mg, Oral, DAILY, First dose on Thu08/01/24 at 2130, Until Discontinued, ---MEDICATION EXPOSURE PRECAUTIONS--- Do not split, break, crush, or open doses of this medication. Contact pharmacy if altered dose or route needed. Start: 07-26-2024 End: 08-09-2024 take 5 capsules by mouth once daily in the morning, then take 4 capsules by mouth once daily in the evening Tacrolimus (PROGRAF) 1 MG capsule Take 5 capsules by mouth Every morning AND 4 capsules every evening. 270 capsule 5 07/26/2024 08/09/2024 Discontinued (Dose adjustment (suppress cancel msg)) Start: 06-30-2024 take 1 capsule by mo uth every twelve hours Tacrolimus (PROGRAF) 1 MG capsule Take 5 capsules by mouth every 12 hours. 300 capsule 5 06/30/2024 Active Start: 06-16-2024 take 1 capsule by mo uth every twelve hours Tacrolimus (PROGRAF) 1 MG capsule Take 4 capsules by mouth every 12 hours. 240 capsule 5 06/16/2024 Active Start: 06-10-2024 take 3 capsules by m outh once daily, then take 2 capsules by mouth at bedtime Tacrolimus (PROGRAF) 1 MG capsule Take 3 capsules by mouth daily AND 2 capsules at bedtime as directed 150 capsule 11 06/10/2024 12:22 PM EDT 06/10/2024 Active Start: 06-10-2024 End: 06-10-2024 take 1 capsule by mouth twice daily Tacrolimus (PROGRAF) 1 MG capsule Take 2 capsules by mouth 2 times daily, at 0800 and 2000. 120 capsule 11 06/10/2024 06/10/2024 Discontinued witch kentrell 500 mg/ml medica jair pad (16 sources) Start: 08-17-2024 Start: 08-09-2024 End: 12-27-2024 witch kentrell-glycerin Pads Ap ply topically to the affected area 4 times daily as needed for Itching or anorectal pain 40 Each 08/09/2024 5:16 PM EDT 08/09/2024 12/27/2024 Discontinued (Other (suppress cancel msg)) Start: 08-07-2024 End: 08-09-2024 1 Application, Topical, N EEDED, Starting on 08/07/24 at 1000, Until 08/09/24 at 1952, Itching, Other, anorectal pain, Patient may self-administer Completed/Discontinued Medications Medication Drug Class(es) Dates Sig (Normalized) Sig (Original) acetaminophen 325 mg oral tablet (18 sources) Start: 12-26-2024 End: 12-31-2024 take 1 tablet by mouth every six hours as needed 650 mg, Oral, EVERY 6 HOURS NEEDED, Starting on 12/26/24 at 1742, Until 12/31/24 at 1529, Mild Pain, Moderate Pain, Severe Pain, Oral temp > 100.4 F, Maximum dose of acetaminophen is 4000 mg from all sources in 24 hours. Start: 06-06-2021 End: 06-13-2021 take 3 tablets by mouth every eight hours acetaminophen 325 MG tablet Take 3 tablets by mouth every 8 hours for 7 days. 63 tablet 0 06/06/2021 Active Start: 06-04-2021 End: 06-06-2021 take 1 tablet by mouth every eight hours acetaminophen (TYLENOL) tablet 975 mg Start: 03-13-2021 End: 12-01-2023 Start: 03-13-2021 End: 12-01-2023 take 2 tablets by mouth every six hours as needed for pain Acetaminophen (Tylenol) 325 mg tablet Discontinued 650 mg PO EVERY 6 HOURS as needed for pain March 13, 2021 1:00am December 01, 2023 10:00am Adhesive Tape (Medipore H Surgical 2x10yd) Tape (4 sources) Start: 06-06-2021 End: 07-11-2021 Adhesive Tape (Medipore H Surgical 2x10yd) Tape Use as directed for dressing changes. 3 Each 3 06/06/2021 07/11/2021 Discontinued Start: 06-06-2021 Adhesive Tape (Medipore H Surgical 2x10yd) Tape Use as directed for dressing changes. 3 Each 3 06/06/2021 Active Start: 06-06-2021 End: 06-06-2021 Adhesive Tape (Medipore H Rodriguez rgical 2x10yd) Tape Use as directed for dressing changes. 3 Each 06/06/2021 06/06/2021 Discontinued (Reorder) 10 ml atropine sulfate 0.1 mg/ml prefilled syringe (1 source) Anticholinergic, Cholinergic Muscarinic Antagonist Start: 03-24-2024 End: 03-25-2024 0.5 mg, Intravenous, ADMINISTER DIRECTED, 4 doses, Starting on Danni 03/24/24 at 1402, Until Thu03/25/24 at 0246, Bradycardia, Up to maximum dose of 2 mg., Intra-op/Intra-Proc atropine sulfate 0.025 mg / diphenoxylate hydrochloride 2.5 mg oral tablet (20 sources) Anticholinergic, Cholinergic Muscarinic Antagonist, Antidiarrheal Start: 04-15-2024 End: 05-03-2024 Start: 04-15-2024 End: 05-03-2024 Diphenoxylate-Atropine (Lomo til) 2.5-0.025 mg tablet Discontinued 1 {tbl} PO THREE TIMES A DAY as needed for diarrhea 90 2 April 15, 2024 1:00am May 03, 2024 9:57am Start: 12-07-2023 End: 01-07-2024 take 1-2 tablets by mouth four times daily as needed for diarrhea Diphenoxylate-atropine 2.5-0.025 MG tablet EC/DR 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 240 tablet 12/07/2023 01/07/2024 Active Start: 11-26-2021 End: 01-25-2022 take 1-2 tablets by mouth four times daily as needed for diarrhea diphenoxylate-atropine 2.5-0.025 MG tablet EC/DR 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 240 tablet 0 12/26/2021 01/25/2022 Active Start: 09-17-2021 End: 02-18-2024 Start: 09-17-2021 End: 02-18-2024 Diphenoxylate-Atropine 2.5-0 .025 mg tablet Discontinued 1 {tbl} PO EVERY 6 HOURS as needed for Cough September 17, 2021 12:00am February 18, 2024 2:09pm Start: 09-17-2021 take 1 tablet by álvaro th every six hours Diphenoxylate-Atropine Active 1 TABLET PO EVERY 6 HOURS September 16, 2021 11:00pm calcium chloride 0.0014 meq/ ml / potassium chloride 0.004 meq/ml / sodium chloride 0.103 meq/ml / sodium lactate 0.028 meq/ml injectable solution (3 sources) Start: 02-28-2022 End: 02-28-2022 Lactated ringers IV solution Start: 06-04-2021 End: 06-05-2021 lactated ringers IV solution cholestyramine resin 4000 mg powder for oral suspension (20 sources) Bile Acid Sequestrant Start: 08-11-2023 End: 11-06-2023 Cholestyramine (With Sugar) 4 gram powder Discontinued 4 NMA PO DAILY 378 0 August 11, 2023 10:19am November 06, 2023 8:31am Start: 08-11-2023 End: 11-06-2023 Cholestyramine (With Sugar) 4 gram powder Discontinued 4 NMA PO DAILY 378 August 11, 2023 10:19am November 06, 2023 8:31am Start: 04-01-2023 End: 08-17-2024 Start: 04-01-2023 End: 05-15-2023 take 1 dose by mouth once daily Cholestyramine (With Sugar) 4 gram powder Discontinued 4 g PO DAILY 378 0 April 01, 2023 1:00am May 15, 2023 11:34am administer w/meal; avoid other meds within 1hr before or 2hr after dose Start: 04-01-2023 End: 05-15-2023 take 1 dose by mouth once daily Cholestyramine (With Sugar) 4 gram powder Discontinued 4 g PO DAILY 378 April 01, 2023 1:00am May 15, 2023 11:34am administer w/meal; avoid other meds within 1hr before or 2hr after dose Start: 04-01-2023 take 1 dose by mouth once daily Cholestyramine (With Sugar) Active 4 GM PO DAILY April 01, 2023 12:00am administer w/meal; avoid other meds within 1hr before or 2hr after dose take 1 dose by mouth once daily Cholestyramine light 4 g Pack packet Take 1 packet by mouth daily. Active diphenhydrAMINE-APAP, sleep, (TYLENOL PM EXTRA STRENGTH PO) (18 sources) End: 03-29-2024 take 1 tablet by mouth at bedtime diphenhydrAMINE-APAP, sleep, (TYLENOL PM EXTRA STRENGTH PO) Take 1 tablet by mouth at bedtime. 03/29/2024 Discontinued take 1 tablet by mouth at bedtim e diphenhydrAMINE-APAP, sleep, (TYLENOL PM EXTRA STRENGTH PO) Take 1 tablet by mouth at bedtime. Active take 1 tablet by mouth at bedtim e diphenhydrAMINE-APAP, sleep, (TYLENOL PM EXTRA STRENGTH PO) Take 1 tablet by mouth at bedtime. 0 Active 250 ml DOBUTamine 1 mg/ml injection (1 source) beta-Adrenergic Agonist Start: 03-24-2024 End: 03-25-2024 40 mcg/kg/min 46.7 kg (112.08 mL/hr, rounded to 112.1 mL/hr), Intravenous, CONTINUOUS, Starting on Thu03/24/24 at 1415, Until Thu03/25/24 at 0246, Initiate at 10mcg/kg/min and titrate to increase by 10 mcg/kg/min every 3 minutes to a maximum dose of 40 mcg/kg/min as directed by physician. 0.3 ml enoxaparin sodium 100 mg/ml prefilled syringe (2 sources) Low Molecular Weight Heparin Start: 12-26-2024 End: 12-31-2024 inject 30 mg by subcutaneous injection every twenty-four hours 30 mg, Subcutaneous, EVERY 24 HOURS, First dose on Thu12/26/24 at 1815, Until Discontinued, For SUBCUTANEOUS route ONLY: alternate injection sites between left and right abdominal wall, pinching location and avoiding area around navel. If unable to use abdominal sites, may use the front or side of thighs., Indications: DVT/PE prophylaxis, On hold since Thu12/26/2024 at 2011 until manually unheld Start: 06-04-2021 End: 06-06-2021 enOXAParin (LOVENOX) injecti on 40 mg entecavir 0.5 mg oral tablet (20 sources) Hepatitis B Virus Nucleoside Analog Reverse Transcriptase Inhibitor Start: 12-27-2024 End: 12-31-2024 take 1 tablet by mouth once daily 0.5 mg, Oral, DAILY, First dose (after last modification) on Thu12/27/24 at 1445, Until Discontinued, Administer on an empty stomach. Swallow tablet whole; do not crush, split or chew. Contact pharmacy if alternate route or dose is needed. Start: 11-02-2024 take 1 tablet by álvaro th in the evening Entecavir 0.5 MG tablet Take 1 tablet by mouth every 48 hours. 15 tablet 12/07/2024 1:35 PM EDT 11/02/2024 Active Start: 08-17-2024 Start: 06-11-2024 End: 08-09-2024 take 1 tablet by mouth once daily in the evening Entecavir 0.5 MG tablet Take 1 tablet by mouth daily. 30 tablet 10/06/2024 1:44 PM EDT 06/11/2024 Active 2 ml fentaNYL 0.05 mg/ml injection (3 sources) Opioid Agonist Start: 08-09-2024 End: 08-09-2024 0-300 mcg, Intravenous, Administer over 2 Minutes, ADMINISTER DIRECTED, Starting on Thu08/09/24 at 1444, Until Thu08/09/24 at 1523, intraoperative pain management, Administer during procedure as directed by physician. Recorded MAR dose is cumulative amount given during procedure., Intra-op/Intra-Proc Start: 05-13-2024 End: 05-13-2024 Intravenous, Administer over 2 Minutes, NEEDED, Starting on Thu05/13/24 at 1443, Until Thu05/13/24 at 1443, Intra-op/Intra-Proc Start: 02-28-2022 End: 02-28-2022 fentaNYL (SUBLIMAZE) injecti on 25 mcg flumazenil 0.1 mg/ml injectable solution (1 source) Benzodiazepine Antagonist Start: 08-09-2024 End: 08-09-2024 0.1 mg, Intravenous, ADMINISTER DIRECTED, Starting on Thu08/09/24 at 1514, Until Thu08/09/24 at 1952, Decreased responsiveness, respiratory insufficiency, Vial to bedside in procedure room. Administer under direction of physician., Post-op/Post-Proc folic acid 1 mg oral tablet (13 sources) Start: 11-21-2020 End: 09-24-2023 gabapentin 100 mg oral capsule (4 sources) Anti-epileptic Agent Start: 06-04-2021 End: 07-11-2021 take 1 capsule by mouth every eight hours gabapentin 100 MG capsule Take 1 capsule by mouth every 8 hours for 7 days. 21 capsule 0 06/06/2021 07/11/2021 Discontinued Start: 06-04-2021 gabapentin (NE URONTIN) capsule 800 mg Gadopiclenol SOLN 1-25 mL (2 sources) Start: 10-23-2024 End: 10-23-2024 1-25 mL, Intravenous, ONCE, 1 dose, On Thu10/23/24 at 0800 Start: 01-24-2024 End: 01-24-2024 1-25 mL, Intravenous, ONCE, 1 dose, On 01/24/24 at 1315 Gadoxetate Disodium (EOVIST) SOLN 1-25 mL (1 source) Start: 12-30-2024 End: 12-30-2024 1-25 mL, Intravenous, ONCE, 1 dose, On Thu12/30/24 at 0745, Extravasation Risk., MR Procedure Gauze Pads & Dressings (Kerl ix Super Sponges Medium) 6X6-3/4 Pads (3 sources) Start: 06-06-2021 End: 07-11-2021 Gauze Pads & Dressings (Kerl ix Super Sponges Medium) 6X6-3/4 Pads Use as directed for dressing changes. 40 Each 06/06/2021 07/11/2021 Discontinued Start: 06-06-2021 Gauze Pads & D ressings (Kerlix Super Sponges Medium) 6X6- 3/4 Pads Use as directed for dressing changes. 40 Each 06/06/2021 Active Start: 06-06-2021 End: 06-06-2021 Gauze Pads & Dressings (Kerl ix Super Sponges Medium) 6X6-3/4 Pads Use as directed for dressing changes. 40 Each 06/06/2021 06/06/2021 Discontinued (Reorder) Gauze Pads & Dressings 5X9 Pads (3 sources) Start: 06-06-2021 End: 07-11-2021 Gauze Pads & Dressings 5X9 Pads Use as directed for dressing changes. 12 Each 06/06/2021 07/11/2021 Discontinued Start: 06-06-2021 Gauze Pads & D ressings 5X9 Pads Use as directed for dressing changes. 12 Each 06/06/2021 Active Start: 06-06-2021 End: 06-06-2021 Gauze Pads & Dressings 5X9 Pads Use as directed for dressing changes. 12 Each 06/06/2021 06/06/2021 Discontinued (Reorder) 1 ml haloperidol 5 mg/ml injection (1 source) Typical Antipsychotic Start: 02-28-2022 End: 02-28-2022 Haloperidol lactate (HALDOL) injection 1 mg 1 ml heparin sodium, porcine 5000 unt/ml prefilled syringe (1 source) Unfractionated Heparin, Anti-coagulant Start: 06-04-2021 End: 06-04-2021 heparin injection 5,000 Units hydrocortisone acetate 25 mg rectal suppository (16 sources) Corticosteroid Start: 12-28-2024 End: 12-31-2024 take 25 mg rectal route twice daily 25 mg, Rectal, 2 TIMES DAILY, First dose on Thu12/28/24 at 1200, Until Discontinued Start: 04-11-2024 End: 08-17-2024 Start: 04-11-2024 End: 08-17-2024 Hydrocortisone Acetate (William ifoam) 10 % (80 mg) foam Discontinued 1 NMA RC TWICE A DAY 15 30 2 April 11, 2024 1:00am August 17, 2024 9:07am Start: 12-04-2023 End: 12-25-2023 Hydrocortisone Acetate 25 mg suppository (7 sources) Start: 12-04-2023 End: 12-25-2023 Hydrocortisone Acetate 25 mg suppository Discontinued 25 mg RC TWICE A DAY 42 December 04, 2023 12:00am December 24, 2023 12:00am December 25, 2023 12:09am Start: 12-04-2023 End: 12-25-2023 Hydrocortisone Acetate 25 mg suppository Discontinued 25 mg RC TWICE A DAY 42 December 04, 2023 12:00am December 24, 2023 12:00am December 25, 2023 12:09am indomethacin 100 mg rectal suppository (1 source) Nonsteroidal Anti-inflammatory Drug Start: 02-25-2024 End: 02-25-2024 100 mg, Rectal, LEATHER LACER TO PROCEDURE, 1 dose, Starting on Danni 02/25/24 at 0900, Until Danni 02/25/24 at 0850, Other, pancreatitis, Give under direction of MD performing procedure, Intra-op/Intra-Proc Start: 02-25-2024 End: 02-25-2024 100 mg, Rectal, LEATHER LACER TO P ROCEDURE, 1 dose, Starting on Danni 02/25/24 at 0900, Until Danni 02/25/24 at 0850, Other, pancreatitis, Give under direction of MD performing procedure, Intra-op/Intra-Proc iohexol (OMNIPAQUE) 240 MG/ML injection 35 mL (1 source) Start: 02-25-2024 End: 02-25-2024 35 mL, Intraductal, ONCE, 1 dose, On Danni 02/25/24 at 1045, Extravasation Risk Iohexol (OMNIPAQUE) 9 MG/ML Bottle 1,000 mL (1 source) Start: 08-02-2024 End: 08-02-2024 take 1 dose by mouth once 1,000 mL, Oral, ONCE, 1 dose, On Thu08/02/24 at 2000, For administration to inpatients, to be given by RN on inpatient nursing unit., CT Procedure 10 ml lidocaine hydrochloride 20 mg/ml injection (2 sources) Antiarrhythmic, Amide Local Anesthetic Start: 08-09-2024 End: 08-09-2024 ONCE NEEDED, 1 dose, Starting on Thu08/09/24 at 1503, Until Thu08/09/24 at 1503, Intra-op/Intra-Proc Start: 06-05-2021 End: 06-05-2021 Lidocaine HCl Urethral/Mucos al 2 % jelly prefilled syringe (Urojet) PRSY 10 mL lidocaine 1% buffered in sodium bicarbonate 1-8.4 % injection SOSY 1 mL (1 source) Start: 02-28-2022 End: 02-28-2022 lidocaine 1% buffered in sodium bicarbonate 1-8.4 % injection SOSY 1 mL loperamide hydrochloride 2 mg oral capsule (20 sources) Opioid Agonist Start: 12-28-2024 End: 12-31-2024 take 1 capsule by mouth every four hours as needed 2 mg, Oral, EVERY 4 HOURS NEEDED, Starting on Thu12/28/24 at 1130, Until 12/31/24 at 1529, Diarrhea Start: 08-17-2024 Start: 08-17-2024 take 1 capsule by [facility] every six hours as needed Start: 08-09-2024 End: 09-21-2024 take 1 capsule by mouth four times daily as needed for diarrhea Loperamide 2 MG capsule Indications: Ulcerative pancolitis with other complication Take 1 capsule by mouth 4 times daily as needed for Diarrhea. 120 capsule 3 09/21/2024 Active Start: 08-07-2024 End: 08-09-2024 take 2 mg by mouth three times daily 2 mg, Oral, 3 times daily, First dose (after last modification) on Thu08/07/24 at 0900, Until Discontinued Start: 06-19-2021 End: 12-01-2023 magnesium oxide 400 mg oral tablet (2 sources) Start: 08-02-2024 End: 08-03-2024 take 1 dose by mouth once 400 mg, Oral, ONCE, 1 dose, On Thu08/03/24 at 0815 50 ml magnesium sulfate 80 mg/ml injection (1 source) Start: 12-27-2024 End: 12-27-2024 4 g, Intravenous, Administer over 4 Hours, ONCE, 1 dose, On Thu12/27/24 at 0845 melatonin 3 mg oral tablet (1 source) Start: 06-04-2021 End: 06-06-2021 melatonin tablet 6 mg metroNIDAZOLE 500 mg oral tablet (20 sources) Nitroimidazole Antimicrobial Start: 12-02-2023 End: 12-12-2023 Start: 04-01-2023 End: 04-11-2023 micafungin sodium 50 mg injection (7 sources) Echinocandin Antifungal Start: 12-31-2024 End: 12-30-2024 inject 1 dose intravenously every twenty-four hours Micafungin injection 150 mg per dose, IV infusion every 24 hours. *diluent and final concentration at discretion of receiving pharmacy* 21 Each 12/31/2024 12/30/2024 Discontinued Start: 12-31-2024 End: 12-30-2024 inject 1 dose intravenously every twenty-four hours Micafungin injection 150 mg per dose, IV infusion every 24 hours. *diluent and final concentration at discretion of receiving pharmacy* 21 Each 12/31/2024 12/30/2024 Discontinued Start: 12-30-2024 End: 01-18-2025 inject 1 dose intravenously every twenty-four hours Micafungin injection 150 mg per dose, IV infusion every 24 hours. *diluent and final concentration at discretion of receiving pharmacy* 19 Each 12/31/2024 01/18/2025 Active Start: 06-11-2024 End: 06-17-2024 inject 1 dose intravenously every twenty-four hours Micafungin injection 100 mg per dose, IV infusion every 24 hours. *diluent and final concentration at discretion of receiving pharmacy* 7 Each 06/11/2024 06/17/2024 Active Micafungin (MYCAMINE) 100 mg in Sodium chloride 0.9%, with overfill 115 mL (total volume) IVPB (1 source) Start: 12-28-2024 End: 12-28-2024 take 100 mg intravenously every twenty-four hours 100 mg, Intravenous, Administer over 60 Minutes, EVERY 24 HOURS, First dose on Thu12/28/24 at 1200, Until Discontinued Micafungin (MYCAMINE) 150 mg in Sodium chloride 0.9%, with overfill 125 mL (total volume) IVPB (1 source) Start: 12-29-2024 End: 12-31-2024 take 150 mg intravenously every twenty-four hours 150 mg, Intravenous, Administer over 60 Minutes, EVERY 24 HOURS, First dose (after last modification) on Thu12/29/24 at 0900, Until Discontinued 2 ml midazolam 1 mg/ml injection (2 sources) Benzodiazepine Start: 08-09-2024 End: 08-09-2024 0-10 mg, Intravenous, ADMINISTER DIRECTED, Starting on Thu08/09/24 at 1444, Until Thu08/09/24 at 1523, Procedural sedation, Administer during procedure as directed by physician. Recorded MAR dose is cumulative amount given during procedure., Intra-op/Intra-Pro c Start: 05-13-2024 End: 05-13-2024 NEEDED, Starting on Thu at 1443, Until Thu05/13/24 at 1443, Intra-op/Intra-Proc mycophenolate mofetil 250 mg oral capsule (20 sources) Start: 08-17-2024 End: 12-31-2024 take 1 capsule by mouth every twelve hours 250 mg, Oral, EVERY 12 HOURS NON-STANDARD, First dose on Thu12/26/24 at 2000, Until Discontinued, Do not split, break, crush or open this medication. Contact pharmacy if altered route or dose is needed. Start: 08-17-2024 take 1 capsule by mo uth twice daily Start: 08-01-2024 End: 08-09-2024 take 500 mg by mouth twice daily 500 mg, Oral, 2 TIMES DAILY (Solid Organ Transplant), First dose on Thu08/01/24 at 2130, Until Discontinued, ---MEDICATION EXPOSURE PRECAUTIONS--- Do not split, break, crush or open this medication. Contact pharmacy if altered route or dose is needed. Start: 06-10-2024 take 2 capsules by m outh every twelve hours Mycophenolate mofetil (CELLCEPT) 250 MG capsule Take 2 capsules by mouth every 12 hours. 120 capsule 11 10/06/2024 1:44 PM EDT 06/10/2024 Active 1 ml naloxone hydrochloride 0.4 mg/ml injection (1 source) Opioid Antagonist Start: 08-09-2024 End: 08-09-2024 0.4 mg, Intravenous, ADMINISTER DIRECTED, Starting on Thu08/09/24 at 1514, Until Tu08/09/24 at 1952, Decreased responsiveness, respiratory insufficiency, Vial to bedside. Administer under direction of physician., Post-op/Post-Proc nystatin 064063 unt/ml oral suspension (5 sources) Polyene Antifungal Start: 06-10-2024 End: 07-04-2024 take 1 mL by mouth four times daily Nystatin [id number] UNIT/ML oral suspension Swish and swallow 1 mL 4 times daily. 120 mL 06/10/2024 12:22 PM EDT 06/10/2024 07/04/2024 Discontinued (Medication Reconciliation (suppress cancel msg)) Ondansetron (7 sources) Serotonin-3 Receptor Antagonist Start: 08-09-2024 End: 08-09-2024 take 1 tablet by mouth every six hours as needed Ondansetron (ZOFRAN) tablet 4 mg Start: 02-25-2024 End: 02-25-2024 take 1 dose by mouth once 8 mg, Oral, ONCE, 1 dose, On Danni 02/25/24 at 1230 Start: 02-28-2022 End: 02-28-2022 Ondansetron 4mg/2ml (ZOFRAN) injection 4 mg Start: 06-06-2021 End: 07-11-2021 take 1 tablet by mouth every eight hours as needed ondansetron 4 MG Tab Dispersible tablet Take 1 tablet by mouth every 8 hours as needed for Nausea / Vomiting. 20 tablet 0 06/06/2021 07/11/2021 Discontinued Start: 06-04-2021 End: 06-06-2021 take 4 mg intravenously every six hours as needed ondansetron 4mg/2ml (ZOFRAN) injection 4 mg Ondansetron 4mg/2ml (ZOFRAN) injection 4 mg (1 source) Start: 12-26-2024 End: 12-31-2024 take 4 mg intravenously every six hours as needed Ondansetron 4mg/2ml (ZOFRAN) injection 4 mg oxyCODONE hydrochloride 5 mg oral tablet (7 sources) Opioid Agonist Start: 12-14-2024 End: 12-27-2024 take 1 tablet by mouth every six hours as needed for pain oxyCODONE 5 MG tablet Indications: Ulcerative pancolitis with complication Take 1 tablet by mouth every 6 hours as needed for Severe Pain for up to 5 days. 16 tablet 12/14/2024 12/27/2024 Discontinued (Other (suppress cancel msg)) Start: 06-10-2024 End: 07-04-2024 take 1 tablet by mouth every six hours as needed oxyCODONE 5 MG tablet Indications: Liver transplanted Take 1 tablet by mouth every 6 hours as needed for up to 7 days. 28 tablet 06/10/2024 12:22 PM EDT 06/10/2024 07/04/2024 Discontinued Start: 06-06-2021 End: 06-06-2021 take 1 tablet by mouth every four hours as needed oxyCODONE (ROXICODONE) tablet 5 mg pantoprazole 40 mg delayed release oral tablet (7 sources) Proton Pump Inhibitor Start: 12-31-2024 End: 12-31-2024 take 40 mg by mouth once daily 40 mg, Oral, DAILY, First dose (after last modification) on 12/31/24 at 0900, Until Discontinued, Swallow whole; do not crush or chew., Indications: Continuation of Home Therapy Start: 12-27-2024 End: 12-30-2024 40 mg, Intravenous, DAILY, F irst dose on Thu12/27/24 at 0900, Until Discontinued, Dilute each 40 mg vial with 10 mL of NS. All bolus doses, whether 40 mg or 80 mg, should be administered over at least two minutes., Indications: Continuation of Home Therapy Start: 06-11-2024 take 1 tablet by álvaro once daily Pantoprazole [address] quoc BIRCH Indications: Inpt Stress Ulcer Prophylaxis Take 1 tablet by mouth daily. 30 tablet 06/10/2024 12:22 PM EDT 06/11/2024 Active phenol 14 mg/ml mouthwash (1 source) Start: 06-04-2021 End: 06-06-2021 phenol (CHLORASEPTIC) 1.4 % oral spray 1 spray microencapsulated potassium chloride 20 meq extended release oral tablet (1 source) Start: 06-06-2021 End: 06-06-2021 potassium chloride (K-DUR) tablet ER 40 mEq Start: 06-06-2021 End: 06-06-2021 potassium chloride (K-DUR) t ablet ER 40 mEq potassium phosphate 155 mg / sodium phosphate, dibasic 852 mg / sodium phosphate, monobasic 130 mg oral tablet (1 source) Start: 06-06-2021 End: 06-06-2021 sodium-potassium phosphate ( K-PHOS NEUTRAL) tablet 500 mg Start: 06-06-2021 End: 06-06-2021 sodium-potassium phosphate ( K-PHOS NEUTRAL) tablet 500 mg prochlorperazine (COMPAZINE) injection 10 mg (1 source) Start: 06-04-2021 End: 06-06-2021 take 10 mg intravenously every six hours as needed prochlorperazine (COMPAZINE) injection 10 mg 72 hr scopolamine 0.0139 mg/hr transdermal system (1 source) Anticholinergic Start: 06-04-2021 End: 06-06-2021 scopolamine (TRANSDERM-SCOP) patch 1 patch 250 ml sodium chloride 9 mg/ml injection (9 sources) Start: 12-26-2024 End: 12-31-2024 Intravenous, at 20 mL/hr, NEEDED, Starting on 12/26/24 at 1742, Until 12/31/24 at 1529, Carrier Fluid - See Admin. Inst, 250mL 0.9NS to be used as carrier fluid for intermittent small volume or piggyback medication administration as needed. Infusion rate of the carrier fluid should be set at 20 mL/hr unless the rate as the intermittent medication is less than 20 mL/hr. For intermittent medications with a rate less than 20 mL/hr set the carrier fluid at that rate of the intermittent or piggy back medication. Start: 10-23-2024 End: 10-23-2024 1-250 mL, Intravenous, ONCE NEEDED, 1 dose, Starting on 10/23/24 at 0756, Until 10/23/24 at 0757, Flush, MR Procedure Start: 08-02-2024 End: 08-02-2024 Intravenous, at 75 mL/hr, CO NTINUOUS, Starting on Tu08/02/24 at 0345, Until Thu08/02/24 at 1051 Start: 03-24-2024 End: 03-25-2024 Intravenous, at 20 mL/hr, CO NTINUOUS, Starting on Danni 03/24/24 at 1415, Until Thu03/25/24 at 0246, Pre-op/Pre-Proc Start: 01-24-2024 End: 01-24-2024 1-250 mL, Intravenous, ONCE NEEDED, 1 dose, Starting on Thu01/24/24 at 1303, Until Thu01/24/24 at 1335, Flush, MR Procedure Start: 06-13-2021 End: 07-11-2021 SODIUM CHLORIDE, EXTERNAL, ( Saline Wound Wash) 0.9 % Solution Indications: Attention to ileostomy Use as directed for wound care 210 mL 3 06/13/2021 07/11/2021 Discontinued Start: 06-06-2021 End: 06-06-2021 SODIUM CHLORIDE, EXTERNAL, ( Saline Wound Wash) 0.9 % Solution Use as directed for wound care 210 mL 3 06/06/2021 Active Start: 06-04-2021 End: 06-04-2021 sodium chloride 0.9% IV solu tion sulfamethoxazole 800 mg / trimethoprim 160 mg oral tablet (20 sources) Dihydrofolate Reductase Inhibitor Antibacterial, Sulfonamide Antimicrobial Start: 11-02-2024 End: 07-30-2025 take 1 tablet by mouth three times weekly 1 tablet, Oral, 3 TIMES WEEKLY (NON-STANDARD), First dose on Thu12/28/24 at 1830, Until Discontinued Start: 08-17-2024 Start: 08-17-2024 Start: 06-11-2024 End: 06-11-2025 take 1 tablet by mouth every twenty-four hours Sulfamethoxazole-trimethoprim 800-160 MG per tablet Take 1 tablet by mouth every 24 hours. 30 tablet 11 10/06/2024 1:44 PM EDT 06/11/2024 06/11/2025 Active sulfaSALAzine 500 mg delayed release oral tablet (20 sources) Aminosalicylate Start: 11-21-2020 End: 12-12-2020 Start: 11-21-2020 End: 12-12-2020 take 2 tablets by mouth twice daily Sulfasalazine 500 mg tablet,delayed release (DR/EC) Discontinued 1 g PO TWICE A DAY 120 0 December 12, 2020 8:00am December 12, 2020 9:03am Take two tabs by mouth two times a day. Start: 11-21-2020 End: 12-10-2020 take 1 g by mouth twice daily Sulfasalazine 500 mg tablet,delayed release (DR/EC) Discontinued 1 g PO TWICE A DAY 60 0 November 21, 2020 12:00am December 10, 2020 8:38am Start: 11-21-2020 End: 12-10-2020 take 1 g by mouth twice daily Sulfasalazine Discontinu ed 1 GM PO TWICE A DAY 60 November 21, 2020 11:38am December 10, 2020 8:38am tamsulosin hydrochloride 0.4 mg oral capsule (5 sources) alpha-Adrenergic Sobeida Start: 12-27-2024 End: 12-31-2024 take 0.4 mg by mouth once daily 0.4 mg, Oral, DAILY, First dose on Thu12/27/24 at 0900, Until Discontinued Tamsulosin HCl ( FLOMAX PO) Take by mouth daily. Active ursodiol 300 mg oral capsule (20 sources) Bile Acid Start: 12-27-2024 End: 12-31-2024 take 600 mg by mouth every twelve hours at mealtime 600 mg, Oral, EVERY 12 HOURS, First dose on Thu12/27/24 at 0900, Until Discontinued, Administer with food or milk. Start: 12-05-2024 take 2 capsules by m outh every twelve hours in the evening ursodiol 300 MG capsule Take 2 capsules by mouth every 12 hours. 120 capsule 5 12/07/2024 1:35 PM EDT 12/05/2024 Active Start: 08-09-2024 take 2 capsules by m outh twice daily in the evening ursodiol 300 MG capsule Take 2 capsules by mouth 2 times daily. 120 capsule 3 10/06/2024 1:44 PM EDT 08/09/2024 Active Start: 08-04-2024 End: 08-09-2024 take 600 mg by mouth twice daily at mealtime 600 mg, Oral, 2 TIMES DAILY, First dose on Thu08/04/24 at 1700, Until Discontinued, Administer with food or milk. Start: 12-02-2023 End: 05-25-2024 valGANciclovir 450 mg oral tablet (20 sources) Start: 08-17-2024 End: 12-31-2024 take 450 mg by mouth once daily 450 mg, Oral, DAILY, First dose on Thu12/27/24 at 0900, Until Discontinued, Do not split, break, crush or chew this medication. Contact pharmacy if altered route or dose is needed. Start: 08-17-2024 take 1 tablet by álvaro th every twelve hours Start: 06-10-2024 End: 08-09-2024 take 1 tablet by mouth twice daily in the evening valGANciclovir 450 MG tablet Take 1 tablet by mouth 2 times daily. 60 tablet 2 08/11/2024 3:02 PM EDT 06/10/2024 Active Problems Active Problems Problem Classification Problem Date Documented Da te Episodic/Chronic Anal and rectal conditions (4 sources) Anal pain; 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: [Other specified diseases of anus and rectum] Onset: 5 Episodic Biliary tract disease (20 sources) Primary sclerosing cholangitis; 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: [Primary sclerosing cholangitis] Onset: 4 12-23-2023 Chronic Cancer of colon (20 sources) Malignant tumor of sigmoid colon; 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: [Malignant neoplasm of sigmoid colon] Onset: 1 Chronic Complications of surgical procedures or medical care (20 sources) Enterostomy malfunction; 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: [Enterostomy malfunction] Onset: 2 Resolved: 5 Chronic Deficiency and other anemia (20 sources) Iron deficiency anemia due to blood loss; 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: [Iron deficiency anemia secondary to blood loss (chronic)] 03-13-2021 Chronic Deficiency and other anemia (5 sources) Iron deficiency anemia secondary to blood loss (chronic); 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: [Iron deficiency anemia secondary to blood loss (chronic)] Onset: 5 Chronic Deficiency and other anemia (4 sources) Anemia; 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: [Anemia, unspecified] Onset: 5 Episodic Fever of unknown origin (3 sources) Fever; 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: [Fever, unspecified] 09-23-2024 Episodic Gastrointestinal hemorrhage (1 source) Gastrointestinal hemorrhage, unspecified; 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: [Gastrointestinal hemorrhage, unspecified] Onset: 5 Episodic Hemorrhoids (14 sources) Hemorrhoids; 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: [Unspecified hemorrhoids] 05-03-2024 Episodic Immunity disorders (5 sources) Immunosuppression; 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: [Immunodeficiency, unspecified] Onset: 5 06-13-2024 Chronic Mycoses (5 sources) Candidiasis, unspecified; 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: [Candidiasis of unspecified site] Onset: 5 06-15-2024 Episodic Other aftercare (2 sources) Transplant follow-up; 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: [Encounter for aftercare following other organ transplant] 06-13-2024 Chronic Other aftercare (2 sources) Encounter for aftercare following other organ transplant; 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: [Encounter for aftercare following other organ transplant] Onset: Chronic Other aftercare (1 source) Taking high risk medication; 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: [Other residential (current) drug therapy] 06-13-2024 Episodic Other aftercare (1 source) Long-term current use of antibiotic; 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: [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] 06-15-2024 Episodic Other aftercare (1 source) H/O: high risk medication; 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: [Other residential (current) drug therapy] 10-10-2024 Episodic Other aftercare (1 source) Patient encounter status; 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: [Encounter for therapeutic drug level monitoring] 10-10-2024 Episodic Other aftercare (1 source) Encounter for adjustment and management of vascular access device; 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: [Encounter for adjustment and management of vascular access device] Onset: Episodic Other gastrointestinal disorders (1 source) Diarrhea; 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: [Intestinal malabsorption, unspecified] Chronic Other gastrointestinal disorders (1 source) H/O: ulcerative colitis; 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: [Personal history of other diseases of the digestive system] 02-09-2023 Episodic Other gastrointestinal disorders (13 sources) Diarrhea; 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: [Diarrhea, unspecified] 09-24-2023 Episodic Other gastrointestinal disorders (1 source) Accumulation of bile in abdominal cavity; 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: [Other specified disorders of peritoneum] 06-15-2024 Episodic Other infections; including parasitic (1 source) Disorder due to infection; 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: [Unspecified infectious disease] 12-29-2024 Episodic Other infections; including parasitic (1 source) Unspecified infectious disease; 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: [Unspecified infectious disease] Onset: Episodic Other liver diseases (20 sources) Cirrhosis - non-alcoholic; 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: [Unspecified cirrhosis of liver] Onset: 5 03-15-2024 Chronic Other liver diseases (2 sources) Cirrhosis of liver; 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: [Unspecified cirrhosis of liver] 03-29-2024 Chronic Other liver diseases (3 sources) Liver transplant status; 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: [Liver transplant status] Onset: 5 Chronic Other liver diseases (1 source) Chronic hepatic failure without coma; 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: [Chronic hepatic failure without coma] Onset: 5 Chronic Other liver diseases (2 sources) Unspecified cirrhosis of liver; 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: [Unspecified cirrhosis of liver] Onset: 5 Chronic Other liver diseases (14 sources) Enzyme level - finding; 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: [Elevated transaminase measurement] 03-31-2023 Episodic Other liver diseases (2 sources) Alkaline phosphatase raised; 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: [Abnormal levels of other serum enzymes] Onset: 5 12-26-2024 Episodic Other nutritional; endocrine; and metabolic disorders (3 sources) Weight loss; 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: [Abnormal weight loss] 11-21-2020 Episodic Other nutritional; endocrine; and metabolic disorders (12 sources) Weight decreased; 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: [Abnormal weight loss] 11-21-2020 Episodic Regional enteritis and ulcerative colitis (20 sources) Ulcerative colitis; 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: [Ulcerative colitis, unspecified, without complications] Onset: 1 Chronic Residual codes; unclassified (12 sources) Liver transplant planned; 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: [Awaiting organ transplant status] Onset: 5 05-25-2024 Chronic Residual codes; unclassified (1 source) Awaiting organ transplant status; 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: [Awaiting organ transplant status] Onset: 5 Chronic Residual codes; unclassified (1 source) Awaiting organ transplant status; 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: [Awaiting organ transplant status] Onset: 5 Chronic Residual codes; unclassified (1 source) At risk for infection; 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: [Other specified personal risk factors, not elsewhere classified] 06-15-2024 Episodic Unclassified (1 source) Bowel Prep Onset: 5 08-02-2024 Unclassified (1 source) Anal fistula, unspecified; 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: [Anal fistula, unspecified] Onset: 5 Unclassified (2 sources) Liver Recipient Follow-up; 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: [Liver Recipient Follow-up] Onset: 5 Past or Other Problems Problem Classification Problem Date Documented Da te Episodic/Chronic Complications of surgical procedures or medical care (1 source) Other postprocedural complications and disorders of digestive system; 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: [Other postprocedural complications and disorders of digestive system] Onset: 05-25-2024 Episodic Deficiency and other anemia (1 source) Iron deficiency anemia, unspecified; 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: [Iron deficiency anemia, unspecified] Onset: 06-29-2024 Episodic Intestinal obstruction without hernia (1 source) Unspecified intestinal obstruction, unspecified as to partial versus complete obstruction; 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: [Unspecified intestinal obstruction, unspecified as to partial versus complete obstruction] Onset: 05-25-2024 Episodic Malaise and fatigue (1 source) Other malaise; 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: [Other malaise] Onset: 05-25-2024 Episodic Other aftercare (2 sources) Other residential (current) drug therapy; 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: [Other intermediate project manager (current) drug therapy] Onset: 09-29-2024 Episodic Other aftercare (3 sources) Encounter for therapeutic drug level monitoring; 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: [Encounter for therapeutic drug level monitoring] Onset: 09-29-2024 Episodic Other aftercare (1 source) halfway (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 of antibiotics; 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: [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] Onset: 06-15-2024 Episodic Other gastrointestinal disorders (1 source) Diarrhea, unspecified; 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: [Diarrhea, unspecified] Onset: 08-22-2024 Episodic Other gastrointestinal disorders (1 source) Other specified disorders of peritoneum; 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: [Other specified disorders of peritoneum] Onset: 06-15-2024 Episodic Other gastrointestinal disorders (1 source) Other specified disorders of peritoneum; 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: [Other specified disorders of peritoneum] Onset: 06-15-2024 Episodic Other screening for suspected conditions (not mental disorders or infectious disease) (17 sources) Other specified abnormal findings of blood chemistry; 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: [Elevated liver function tests] Onset: 04-14-2024 01-13-2023 Episodic Residual codes; unclassified (2 sources) Other specified personal risk factors, not elsewhere classified; 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: [Other specified personal risk factors, not elsewhere classified] Onset: 06-15-2024 Episodic Respiratory failure; insufficiency; arrest (adult) (1 source) Respiratory failure; insufficiency; arrest (adult); 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: [Chronic hepatic failure without coma] Onset: 05-25-2024 Unclassified (1 source) Ulcerative (chronic) pancolitis with unspecified complications; 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: [Ulcerative (chronic) pancolitis with unspecified complications] Onset: 02-17-2025 Unclassified (1 source) Unspecified infectious disease; 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: [Unspecified infectious disease] Onset: 12-26-2024 Unclassified (1 source) Anal fistula, unspecified; 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: [Anal fistula, unspecified] Onset: 12-01-2024 Unclassified (1 source) Ulcerative (chronic) pancolitis with other complication; 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: [Ulcerative (chronic) pancolitis with other complication] Onset: 10-23-2024 Unclassified (1 source) Encounter for aftercare following other organ transplant; 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: [Encounter for aftercare following other organ transplant] Onset: 10-10-2024 Unclassified (1 source) Other residential (current) drug therapy; 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: [Other residential (current) drug therapy] Onset: 10-10-2024 Unclassified (1 source) Diarrhea, unspecified; 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: [Diarrhea, unspecified] Onset: 08-22-2024 Unclassified (1 source) halfway (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 of antibiotics; 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: [halfway (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 of antibiotics] Onset: 06-15-2024 Unclassified (1 source) Candidiasis, unspecified; 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: [Candidiasis, unspecified] Onset: 06-15-2024 Unclassified (1 source) Other postprocedural complications and disorders of digestive system; 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: [Other postprocedural complications and disorders of digestive system] Onset: 05-25-2024 Unclassified (1 source) Other specified diseases of biliary tract; 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: [Other specified diseases of biliary tract] Onset: 05-25-2024 Unclassified (1 source) Other malaise; 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: [Other malaise] Onset: 05-25-2024 Unclassified (1 source) Unspecified intestinal obstruction, unspecified as to partial versus complete obstruction; 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: [Unspecified intestinal obstruction, unspecified as to partial versus complete obstruction] Onset: 05-25-2024 Unclassified (1 source) Encounter for other preprocedural examination; 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: [Encounter for other preprocedural examination] Onset: 04-14-2024 Unclassified (1 source) Ulcerative colitis, unspecified with unspecified complications; 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: [Ulcerative colitis, unspecified with unspecified complications] Onset: 04-14-2024 Unclassified (1 source) Encounter for preprocedural cardiovascular examination; 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: [Encounter for preprocedural cardiovascular examination] Onset: 03-24-2024 Results Test Name Value Interpretation Reference Range Facility Absolute lymphocyte countOrd ered By: Babs Marley on 01-11-2025 Lymphocytes Auto (Unsp spec) [#/Vol] 0.32 10*3/uL Low 0.83-4.51 [facility] Lymphocytes Auto (Unsp spec) [#/Vol] 0.93 10*3/uL 0.83-4.51 [facility] Alkaline phosphatase measure mentOrdered By: Babs Marley on 01-11-2025 ALP [Catalytic activity/Vol] 301 U/L High 40-129 [facility] Anion gap in Serum or Plasma Ordered By: Babs Marley on 01-11-2025 Anion gap [Moles/Vol] 10 mmol/L 5-15 [facility] Automated lymphocyte count a s percentage of total leukocytesOrdered By: Babs Marley on 01-11-2025 Lymphocytes/100 WBC Auto (Unsp spec) 15.5 % Low 19-41 [facility] Lymphocytes/100 WBC Auto (Unsp spec) Not Reportable [facility] Basophil percentageOrdered B y: Babs Marley on 01-11-2025 Basophils/100 WBC (Bld) 1.0 % 0-1 [facility] Bilirubin, DirectOrdered By: Babs Marley on 01-11-2025 Bilirubin.direct [Mass/Vol] 0.20 mg/dL Normal 0.00-0.30 [facility] Comment on above: Performed By: #### L 501.2300, L500.4050, L501.4700, L100.0100, L501.5200 ####[facility] [address] [place], [address] Blood lymphocytes/100 leukoc ytesOrdered By: Babs Marley on 01-11-2025 Lymphocytes/100 WBC (Bld) 45 % High 19-41 [facility] Blood monocytes/100 leukocyt esOrdered By: Babs Marley on 01-11-2025 Monocytes/100 WBC (Bld) 4 % 0-10 [facility] Blood segmented neutrophils/ 100 leukocytesOrdered By: Babs Marley on 01-11-2025 Segmented neutrophils/100 WBC (Bld) 50 % 47-70 [facility] CBC W/Diff, Automatedon 12-31 REACTIVE LYMPH 1+ Normal [facility] Comment on above: Performed By: #### L 501.2300, L500.4050, L501.4700, L100.0100, L501.5200 ####[facility] [address] [place], [address] Absolute Lymph 0.93 X10 3/uL Normal 0.83-4.51 [facility] Comment on above: Result Comment: AMENDED REPORT 01/11/25 1030 Absolute Lymph previously reported as: 0.32 L X10 3/uL Performed By: #### L 501.2300, L500.4050, L501.4700, L100.0100, L501.5200 ####[facility] [address] [place], [address] Absolute Neut 1.0 X10 3/uL Low 2.0-7.7 [facility] Comment on above: Result Comment: AMENDED REPORT 01/11/25 1030 Absolute Neut previously reported as: 0.9 L X10 3/uL Performed By: #### L 501.2300, L500.4050, L501.4700, L100.0100, L501.5200 ####[facility] [address] [place], [address] Comprehensive Metabolic Prof ilOrdered By: Babs Marley on 01-11-2025 Albumin [Mass/Vol] 3.0 g/dL Low 3.4-4.8 [facility] Comment on above: Performed By: #### L 501.2300, L500.4050, L501.4700, L100.0100, L501.5200 ####[facility] [address] [place], [address] ALT [Catalytic activity/Vol] 10 U/L Normal <=46 [facility] Comment on above: Performed By: #### L 501.2300, L500.4050, L501.4700, L100.0100, L501.5200 ####[facility] [address] [place], [address] Bilirubin [Mass/Vol] 0.33 mg/dL Normal 0.00-1.30 [facility] Comment on above: Performed By: #### L 501.2300, L500.4050, L501.4700, L100.0100, L501.5200 ####[facility] [address] [place], [address] Calcium [Mass/Vol] 8.7 mg/dL Normal 7.6-11.0 [facility] Comment on above: Performed By: #### L 501.2300, L500.4050, L501.4700, L100.0100, L501.5200 ####[facility] [address] [place], [address] Chloride [Moles/Vol] 104 mmol/L Normal 98-108 [facility] Comment on above: Performed By: #### L 501.2300, L500.4050, L501.4700, L100.0100, L501.5200 ####[facility] [address] [place], [address] CO2 [Moles/Vol] 21.5 mmol/L Normal 21.0-32.0 [facility] Comment on above: Performed By: #### L 501.2300, L500.4050, L501.4700, L100.0100, L501.5200 ####[facility] [address] [place], [address] Creatinine [Mass/Vol] 1.16 mg/dL Normal 0.70-1.20 [facility] Comment on above: Performed By: #### L 501.2300, L500.4050, L501.4700, L100.0100, L501.5200 ####[facility] [address] [place], [address] GFR/1.73 sq M.predicted among non-blacks MDRD (S/P/Bld) [Vol rate/Area] 72 mL/min/{1.73_m2} Normal >60 [facility] Comment on above: Result Comment: mL/m in/1.73m2 CKD-EPI Creatinine Equation (2020) Performed By: #### L 501.2300, L500.4050, L501.4700, L100.0100, L501.5200 ####[facility] [address] [place], [address] Globulin (S) [Mass/Vol] 3.1 g/dL Normal 2.2-4.2 [facility] Comment on above: Performed By: #### L 501.2300, L500.4050, L501.4700, L100.0100, L501.5200 ####[facility] [address] [place], [address] Glucose [Mass/Vol] 116 mg/dL High 70-99 [facility] Comment on above: Performed By: #### L 501.2300, L500.4050, L501.4700, L100.0100, L501.5200 ####[facility] [address] [place], [address] Sodium [Moles/Vol] 136 mmol/L Normal 133-145 [facility] Comment on above: Performed By: #### L 501.2300, L500.4050, L501.4700, L100.0100, L501.5200 ####[facility] [address] [place], [address] Urea nitrogen [Mass/Vol] 33 mg/dL High 4-19 [facility] Comment on above: Performed By: #### L 501.2300, L500.4050, L501.4700, L100.0100, L501.5200 ####[facility] [address] [place], [address] Comprehensive Metabolic Prof ilon 01-11-2025 Albumin/Globulin [Mass ratio] 1.0 {ratio} Normal 0.9-2.4 [facility] Comment on above: Performed By: #### L 501.2300, L500.4050, L501.4700, L100.0100, L501.5200 ####[facility] [address] [place], [address] ALK PHOS 301 U/L High 40-129 [facility] Comment on above: Performed By: #### L 501.2300, L500.4050, L501.4700, L100.0100, L501.5200 ####[facility] [address] [place], [address] AST [Catalytic activity/Vol] 15 U/L Normal <=37 [facility] Comment on above: Performed By: #### L 501.2300, L500.4050, L501.4700, L100.0100, L501.5200 ####[facility] [address] [place], [address] BUN/CRE 28.4 RATIO High 10-20 [facility] Comment on above: Performed By: #### L 501.2300, L500.4050, L501.4700, L100.0100, L501.5200 ####[facility] [address] [place], [address] GAP 10 Normal 5-15 [facility] Comment on above: Performed By: #### L 501.2300, L500.4050, L501.4700, L100.0100, L501.5200 ####[facility] [address] [place], [address] Potassium [Moles/Vol] 4.6 mmol/L Normal 3.3-5.1 [facility] Comment on above: Performed By: #### L 501.2300, L500.4050, L501.4700, L100.0100, L501.5200 ####[facility] [address] [place], [address] T PROT 6.0 g/dL Normal 5.9-8.4 [facility] Comment on above: Performed By: #### L 501.2300, L500.4050, L501.4700, L100.0100, L501.5200 ####[facility] [address] [place], [address] Eosinophil percentageOrdered By: Babs Marley on 01-11-2025 Eosinophils/100 WBC (Bld) 0.0 % 0-5 [facility] Erythrocyte distribution wid th ratioOrdered By: Babs Marley on 01-11-2025 Erythrocyte distribution width (RBC) [Ratio] 17.8 % High 11.6-14.6 [facility] Erythrocyte distribution wid th standard deviationOrdered By: Babs Marley on 01-11-2025 Erythrocyte distribution width (RBC) [Ratio] 56.3 fl High 35.1-43.9 [facility] Hematocrit Auto (Bld) [Volum e fraction]Ordered By: Babs Marley on 01-11-2025 Hematocrit (Bld) [Volume fraction] 27.2 % Low 40-54 [facility] Hemoglobin measurementOrdere d By: Babs Marley on 01-11-2025 Hemoglobin (Bld) [Mass/Vol] 8.6 g/dL Low 13.0-16.5 [facility] Immature granulocytes/100 WB C Auto (Bld)Ordered By: Babs Marley on 01-11-2025 Immature granulocytes/100 WBC (Bld) 13.600 % High 0.0-0.9 [facility] Immature granulocytes/100 WBC (Bld) Not Reportable [facility] MCV (mean corpuscular volume ) determinationOrdered By: Babs Marley on 01-11-2025 MCV (RBC) [Entitic vol] 86.9 fL 80-94 [facility] Magnesiumon 01-11-2025 Magnesium [Mass/Vol] 1.9 mg/dL Normal 1.5-2.2 [facility] Comment on above: Performed By: #### L 501.2300, L500.4050, L501.4700, L100.0100, L501.5200 ####[facility] [address] [place], [place], [address] Magnesium measurement (mass/ volume)Ordered By: Babs Marley on 01-11-2025 Magnesium (Unsp spec) [Mass/Vol] 1.9 mg/dL 1.5-2.2 [facility] Mean corpuscular hemoglobin (MCH) determinationOrdered By: Babs Marley on 01-11-2025 MCH (RBC) [Entitic mass] 27.5 pg 27.0-32.0 [facility] Monocyte percentageOrdered B y: Babs Marley on 01-11-2025 Monocytes/100 WBC (Bld) 26.7 % High 0-10 [facility] Neutrophil percentageOrdered By: Gregorylindsey Marley on 01-11-2025 Neutrophils/100 WBC (Bld) 43.2 % Low 47-70 [facility] No Panel InformationOrdered By: [facility] Centerlind[facility] Mar[facility] on 01-11-2025 15 U/L <38 [facility] Phosphoruson 01-11-2025 Phosphate [Mass/Vol] 2.9 mg/dL Normal 2.7-4.5 [facility] Comment on above: Performed By: #### L 501.2300, L500.4050, L501.4700, L100.0100, L501.5200 ####[facility] [address] [place], [place], [address] Platelet countOrdered By: Yissel ruby Bosearya on 01-11-2025 Platelets (Bld) [#/Vol] 423 10*3/uL 150-450 [facility] Potassium measurement (mass/ volume)Ordered By: Gregorykiranlindsey Marley on 01-11-2025 Potassium (Unsp spec) [Mass/Vol] 4.6 mmol/L 3.3-5.1 [facility] RBC Auto (Bld) [#/Vol]Ordere d By: Gregorykiranlindsey Marley on 01-11-2025 RBC (Bld) [#/Vol] 3.13 10*6/uL Low 4.6-6.2 [facility] Total cell countOrdered By: Babs Marley on 01-11-2025 Cells counted Molgen (Bld/Tiss) [#] 100 MANUAL DIFF [facility] Total proteinOrdered By: Lorena celina Donell on 01-11-2025 Protein [Mass/Vol] 6.0 g/dL 5.9-8.4 [facility] White blood cell (WBC) count Ordered By: Babs Marley on 01-11-2025 WBC (Bld) [#/Vol] 2.1 10*3/uL Low 4.4-11.0 [facility] L3400.8500on 01-07-2025 CMV Quant DNA Negative Normal Negative [facility] Comment on above: Order Comment: Test( s) [id number] (FK506), Bloodwas developed and its performance characteristicsdetermined by [facility]. It has not been cleared or approvedby the Food and Drug Administration. Result Comment: No C MV DNA detected.The quantitative range of this assay is 200 to 1 millionIU/mL. Performed By: #### L 501.4700, L501.2300, L3400.8500, L3380.1000, L501.5200, L500.4050, L501.5101, L100.0100 ####[facility] [address] [place], [place], [id number] CMV Quant DNA TNP Normal . [facility] Comment on above: Order Comment: Test( s) [id number] (FK506), Bloodwas developed and its performance characteristicsdetermined by [facility]. It has not been cleared or approvedby the Food and Drug Administration. Result Comment: Resu lt Units: log10 IU/mLUnable to calculate result since non-numeric resultobtained for component test. Performed By: #### L 501.4700, L501.2300, L3400.8500, L3380.1000, L501.5200, L500.4050, L501.5101, L100.0100 ####[facility] [address] [place], [address] L501.5101on 01-07-2025 GGTP 31 IU/L Normal 0-65 [facility] Comment on above: Order Comment: Test( s) [id number] (FK506), Bloodwas developed and its performance characteristicsdetermined by [facility]. It has not been cleared or approvedby the Food and Drug Administration. Result Comment: Perf ormed at: [facility] [address] [id number] Director: Red Graham PhD, Phone: [phone] at: [facility] [address] [id number] Director: Sergio Machado MD, Phone: [phone] Performed By: #### L 501.4700, L501.2300, L3400.8500, L3380.1000, L501.5200, L500.4050, L501.5101, L100.0100 ####[facility] [address] [place], [address] Tacrolimus (Prograf)on 01-07 Tacrolimus (Bld) [Mass/Vol] 3.7 ng/mL Low 5.0-20.0 [facility] Comment on above: Order Comment: Test( s) [id number] (FK506), Bloodwas developed and its performance characteristicsdetermined by [facility]. It has not been cleared or approvedby the Food and Drug Administration. Result Comment: Samia et steady state trough concentration forTacrolimus varies based on type of organ transplantimmunosuppressive protocol and other patient specificfactors. Tacrolimus trough concentrations should beinterpreted in conjunction with clinical assessmentsof rejection and tolerability. Values obtained withdifferent assay methods cannot be used interchangeablydue to differences in assay methods and cross-reactivtywith metabolites, nor should correction factors beapplied. Therefore, consistent use of one assay forindividual patients is recommended.Detection Limit = 0.5 ng/mLPerformed by LC-MS/MS technology. Performed By: #### L 501.4700, L501.2300, L3400.8500, L3380.1000, L501.5200, L500.4050, L501.5101, L100.0100 ####[facility] [address] [place], [place], [id number] Absolute lymphocyte countOrd ered By: Babs Marley on 01-04-2025 Lymphocytes Auto (Unsp spec) [#/Vol] 0.39 10*3/uL Low 0.83-4.51 [facility] Anion gap in Serum or Plasma Ordered By: Babs Marley on 01-04-2025 Anion gap [Moles/Vol] 10 mmol/L 5-15 [facility] BUN/creatinine ratioOrdered By: Babs Marley on 01-04-2025 Urea nitrogen/Creatinine [Mass ratio] 27.1 mg/mg High 10-20 [facility] Bilirubin directOrdered By: Babs Marley on 01-04-2025 Bilirubin.direct [Mass/Vol] 0.13 mg/dL 0.00-0.30 [facility] Bilirubin, Directon 01-05-20 25 Bilirubin.direct [Mass/Vol] 0.13 mg/dL Normal 0.00-0.30 [facility] Comment on above: Performed By: #### L 501.4700, L501.2300, L3400.8500, L3380.1000, L501.5200, L500.4050, L501.5101, L100.0100 ####[facility] [address] [place], [address] Bilirubin, totalOrdered By: Babs Marley on 01-04-2025 Bilirubin [Mass/Vol] 0.28 mg/dL 0.00-1.30 [facility] Blood band neutrophil count as percentage of total leukocytesOrdered By: Babs Marley on 01-04-2025 Band form neutrophils/100 WBC (Bld) 4 % 0-5 [facility] Blood basophils/100 leukocyt esOrdered By: Babs Marley on 01-04-2025 Basophils/100 WBC (Bld) 2 % High 0-1 [facility] Blood lymphocytes/100 leukoc ytesOrdered By: Babs Marley on 01-04-2025 Lymphocytes/100 WBC (Bld) 25 % 19-41 [facility] Blood metamyelocytes/100 susy kocytesOrdered By: Babs Marley on 01-04-2025 Metamyelocytes/100 WBC (Bld) 6 % High 0-1 [facility] Blood monocytes/100 leukocyt esOrdered By: Babs Marley on 01-04-2025 Monocytes/100 WBC (Bld) 12 % High 0-10 [facility] Blood segmented neutrophils/ 100 leukocytesOrdered By: Babs Marley on 01-04-2025 Segmented neutrophils/100 WBC (Bld) 51 % 47-70 [facility] CBC W/Diff, Automatedon Absolute Lymph 0.39 X10 3/uL Low 0.83-4.51 [facility] Comment on above: Performed By: #### L 501.4700, L501.2300, L3400.8500, L3380.1000, L501.5200, L500.4050, L501.5101, L100.0100 ####[facility] [address] [place], [address] Absolute Neut 0.8 X10 3/uL Low 2.0-7.7 [facility] Comment on above: Performed By: #### L 501.4700, L501.2300, L3400.8500, L3380.1000, L501.5200, L500.4050, L501.5101, L100.0100 ####[facility] [address] [place], [address] Carbon dioxide, total [Moles /volume] in Central venous bloodOrdered By: Babs Marley on 01-04-2025 CO2 [Moles/Vol] 22.3 mmol/L 21.0-32.0 [facility] Chloride assayOrdered By: Yissel Marley on 01-04-2025 Chloride [Moles/Vol] 102 mmol/L 98-108 [facility] Comprehensive Metabolic Prof ilon 01-04-2025 Albumin [Mass/Vol] 3.4 g/dL Normal 3.4-4.8 [facility] Comment on above: Performed By: #### L 501.4700, L501.2300, L3400.8500, L3380.1000, L501.5200, L500.4050, L501.5101, L100.0100 ####[facility] [address] [place], [address] Albumin/Globulin [Mass ratio] 1.2 {ratio} Normal 0.9-2.4 [facility] Comment on above: Performed By: #### L 501.4700, L501.2300, L3400.8500, L3380.1000, L501.5200, L500.4050, L501.5101, L100.0100 ####[facility] [address] [place], [address] ALK PHOS 456 U/L High 40-129 [facility] Comment on above: Performed By: #### L 501.4700, L501.2300, L3400.8500, L3380.1000, L501.5200, L500.4050, L501.5101, L100.0100 ####[facility] [address] [place], [address] ALT [Catalytic activity/Vol] 20 U/L Normal <=46 [facility] Comment on above: Performed By: #### L 501.4700, L501.2300, L3400.8500, L3380.1000, L501.5200, L500.4050, L501.5101, L100.0100 ####[facility] [address] [place], [address] AST [Catalytic activity/Vol] 35 U/L Normal <=37 [facility] Comment on above: Performed By: #### L 501.4700, L501.2300, L3400.8500, L3380.1000, L501.5200, L500.4050, L501.5101, L100.0100 ####[facility] [address] [place], [address] Bilirubin [Mass/Vol] 0.28 mg/dL Normal 0.00-1.30 [facility] Comment on above: Performed By: #### L 501.4700, L501.2300, L3400.8500, L3380.1000, L501.5200, L500.4050, L501.5101, L100.0100 ####[facility] [address] [place], [address] BUN/CRE 27.1 RATIO High 10-20 [facility] Comment on above: Performed By: #### L 501.4700, L501.2300, L3400.8500, L3380.1000, L501.5200, L500.4050, L501.5101, L100.0100 ####[facility] [address] [place], [address] Calcium [Mass/Vol] 8.7 mg/dL Normal 7.6-11.0 [facility] Comment on above: Performed By: #### L 501.4700, L501.2300, L3400.8500, L3380.1000, L501.5200, L500.4050, L501.5101, L100.0100 ####[facility] [address] [place], [address] Chloride [Moles/Vol] 102 mmol/L Normal 98-108 [facility] Comment on above: Performed By: #### L 501.4700, L501.2300, L3400.8500, L3380.1000, L501.5200, L500.4050, L501.5101, L100.0100 ####[facility] [address] [place], [address] CO2 [Moles/Vol] 22.3 mmol/L Normal 21.0-32.0 [facility] Comment on above: Performed By: #### L 501.4700, L501.2300, L3400.8500, L3380.1000, L501.5200, L500.4050, L501.5101, L100.0100 ####[facility] [address] [place], [address] Creatinine [Mass/Vol] 0.89 mg/dL Normal 0.70-1.20 [facility] Comment on above: Performed By: #### L 501.4700, L501.2300, L3400.8500, L3380.1000, L501.5200, L500.4050, L501.5101, L100.0100 ####[facility] [address] [place], [address] GAP 10 Normal 5-15 [facility] Comment on above: Performed By: #### L 501.4700, L501.2300, L3400.8500, L3380.1000, L501.5200, L500.4050, L501.5101, L100.0100 ####[facility] [address] [place], [address] GFR/1.73 sq M.predicted among non-blacks MDRD (S/P/Bld) [Vol rate/Area] 98 mL/min/{1.73_m2} Normal >60 [facility] Comment on above: Result Comment: mL/m in/1.73m2 CKD-EPI Creatinine Equation (2020) Performed By: #### L 501.4700, L501.2300, L3400.8500, L3380.1000, L501.5200, L500.4050, L501.5101, L100.0100 ####[facility] [address] [place], [address] Globulin (S) [Mass/Vol] 2.8 g/dL Normal 2.2-4.2 [facility] Comment on above: Performed By: #### L 501.4700, L501.2300, L3400.8500, L3380.1000, L501.5200, L500.4050, L501.5101, L100.0100 ####[facility] [address] [place], [address] Glucose [Mass/Vol] 159 mg/dL High 70-99 [facility] Comment on above: Performed By: #### L 501.4700, L501.2300, L3400.8500, L3380.1000, L501.5200, L500.4050, L501.5101, L100.0100 ####[facility] [address] [place], [address] Potassium [Moles/Vol] 4.0 mmol/L Normal 3.3-5.1 [facility] Comment on above: Performed By: #### L 501.4700, L501.2300, L3400.8500, L3380.1000, L501.5200, L500.4050, L501.5101, L100.0100 ####[facility] [address] [place], [address] Sodium [Moles/Vol] 135 mmol/L Normal 133-145 [facility] Comment on above: Performed By: #### L 501.4700, L501.2300, L3400.8500, L3380.1000, L501.5200, L500.4050, L501.5101, L100.0100 ####[facility] [address] [place], [place], [id number](143) T PROT 6.1 g/dL Normal 5.9-8.4 [facility] Comment on above: Performed By: #### L 501.4700, L501.2300, L3400.8500, L3380.1000, L501.5200, L500.4050, L501.5101, L100.0100 ####[facility] [address] [place], [place], [id number] Urea nitrogen [Mass/Vol] 24 mg/dL High 4-19 [facility] Comment on above: Performed By: #### L 501.4700, L501.2300, L3400.8500, L3380.1000, L501.5200, L500.4050, L501.5101, L100.0100 ####[facility] [address] [facility] [address] [place], [place], [id number] Cytomegalovirus (CMV) DNA me asurement by PCR (log units/volume)Ordered By: Babs Marley on 01-04-2025 CMV DNA JACKY+probe (P) [Log units/Vol] TNP [facility] Erythrocyte distribution wid th ratioOrdered By: Babs Marley on 01-04-2025 Erythrocyte distribution width (RBC) [Ratio] 17.3 % High 11.6-14.6 [facility] Erythrocyte distribution wid th standard deviationOrdered By: Babs Marley on 01-04-2025 Erythrocyte distribution width (RBC) [Ratio] 56.4 fl High 35.1-43.9 [facility] Gamma glutamyl transferase ( GGT) measurementOrdered By: Babs Marley on 01-04-2025 Amylase [Catalytic activity/Vol] 31 U/L 0-65 [facility] Glomerular filtration rate ( GFR) estimation/1.73 sq m using serum, plasma, or whole bOrdered By: Babs Marley on 01-04-2025 GFR/1.73 sq M.predicted among non-blacks MDRD (S/P/Bld) [Vol rate/Area] 98 mL/min/{1.73_m2} >60 [facility] Hematocrit Auto (Bld) [Volum e fraction]Ordered By: Babs Marley on 01-04-2025 Hematocrit (Bld) [Volume fraction] 29.7 % Low 40-54 [facility] Hemoglobin measurementOrdere d By: Babs Marley on 01-04-2025 Hemoglobin (Bld) [Mass/Vol] 9.2 g/dL Low 13.0-16.5 [facility] MCV (mean corpuscular volume ) determinationOrdered By: Babs Marley on 01-04-2025 MCV (RBC) [Entitic vol] 89.2 fL 80-94 [facility] Magnesiumon 01-04-2025 Magnesium [Mass/Vol] 1.8 mg/dL Normal 1.5-2.2 [facility] Comment on above: Performed By: #### L 501.4700, L501.2300, L3400.8500, L3380.1000, L501.5200, L500.4050, L501.5101, L100.0100 ####[facility] [address] [place], [address] Magnesium measurement (mass/ volume)Ordered By: Babs Marley on 01-04-2025 Magnesium (Unsp spec) [Mass/Vol] 1.8 mg/dL 1.5-2.2 [facility] Mean corpuscular hemoglobin (MCH) determinationOrdered By: Babs Marley on 01-04-2025 MCH (RBC) [Entitic mass] 27.6 pg 27.0-32.0 [facility] No Panel InformationOrdered By: Babs Marley on 01-04-2025 35 U/L <38 [facility] Phosphoruson 01-04-2025 Phosphate [Mass/Vol] 2.2 mg/dL Low 2.7-4.5 [facility] Comment on above: Performed By: #### L 501.4700, L501.2300, L3400.8500, L3380.1000, L501.5200, L500.4050, L501.5101, L100.0100 ####[facility] [address] [place], [address] Platelet countOrdered By: Yissel Marley on 01-04-2025 Platelets (Bld) [#/Vol] 374 10*3/uL 150-450 [facility] Potassium measurement (mass/ volume)Ordered By: Babs Marley on 01-04-2025 Potassium (Unsp spec) [Mass/Vol] 4.0 mmol/L 3.3-5.1 [facility] RBC Auto (Bld) [#/Vol]Ordere d By: Babs Marley on 01-04-2025 RBC (Bld) [#/Vol] 3.33 10*6/uL Low 4.6-6.2 [facility] Serum creatinine measurement (mass/volume)Ordered By: Babs Marley on 01-04-2025 Creatinine [Mass/Vol] 0.89 mg/dL 0.70-1.20 [facility] Serum globulin measurementOr dered By: Babs Marley on 01-04-2025 Globulin (S) [Mass/Vol] 2.8 g/dL 2.2-4.2 [facility] Serum glucose measurement (m ass/volume)Ordered By: Babs Marley on 01-04-2025 Glucose [Mass/Vol] 159 mg/dL High 70-99 [facility] Serum or plasma alanine craig otransferase (ALT) measurementOrdered By: Babs Marley on 01-04-2025 ALT [Catalytic activity/Vol] 20 U/L <47 [facility] Serum or plasma albumin megha urement (mass/volume)Ordered By: Babs Marley on 01-04-2025 Albumin [Mass/Vol] 3.4 g/dL 3.4-4.8 [facility] Serum or plasma albumin/glob ulin mass ratioOrdered By: Babs Marley on 01-04-2025 Albumin/Globulin [Mass ratio] 1.2 {ratio} 0.9-2.4 [facility] Serum or plasma alkaline sal sphatase measurementOrdered By: Babs Marley on 01-04-2025 ALP [Catalytic activity/Vol] 456 U/L High 40-129 [facility] Serum or plasma calcium megha urement (mass/volume)Ordered By: Babs Marley on 01-04-2025 Calcium [Mass/Vol] 8.7 mg/dL 7.6-11.0 [facility] Serum or plasma urea nitroge n measurement (mass/volume)Ordered By: Babs Marley on 01-04-2025 Urea nitrogen [Mass/Vol] 24 mg/dL High 4-19 [facility] Sodium levelOrdered By: Gregory Marley on 01-04-2025 Sodium [Moles/Vol] 135 mmol/L 133-145 [facility] Total cell countOrdered By: Babs Marley on 01-04-2025 Cells counted Mol[employer] (Bld/Tiss) [#] 100 MANUAL DIFF [facility] Total proteinOrdered By: Lornea Marley on 01-04-2025 Protein [Mass/Vol] 6.1 g/dL 5.9-8.4 [facility] White blood cell (WBC) count Ordered By: Babs Marley on 01-04-2025 WBC (Bld) [#/Vol] 1.6 10*3/uL Low 4.4-11.0 [facility] ALK PHOSPHATASE FRACTIONATED on 12-31-2024 ALK PHOS BONE 606.3 U/L High 12.0-56.7 [facility] Comment on above: Performed By: #### Y ALPFB ####[facility] (DEFAULT)[address] [place] [address] ALK PHOS INTESTINAL 0.0 U/L Normal <=12.6 [facility] Comment on above: Result Comment: Test Performed by:[address] Director: Orlando Cruz Ph.D.; CLIA# [id number] Performed By: #### Y ALPFB ####[facility] (DEFAULT)[address] [place] [address] ALK PHOS INTESTINAL FRACTION 0.0 % Normal <=22.5 [facility] Comment on above: Performed By: #### Y ALPFB ####[facility] (DEFAULT)[address] [place] [address] ALKALINE PHOS, BONE FRACTION 85.3 % High 23.8-68.3 [facility] Comment on above: Performed By: #### Y ALPFB ####[facility] (DEFAULT)[address] [place] [address] ALKALINE PHOS, TOTAL 711 U/L High 40-129 [facility] Comment on above: Performed By: #### Y ALPFB ####[facility] (DEFAULT)[address] [place] [address] ALKALINE PHOSPHATASE ISOENZYMES DNR Normal [facility] Comment on above: Performed By: #### Y ALPFB ####[facility] (DEFAULT)[address] [place] [address] LIVER FRACTION 14.7 % Low 30.2-74.7 [facility] Comment on above: Performed By: #### Y ALPFB ####[facility] (DEFAULT)[address] [facility] [place] [address] LIVER I 104.7 U/L High 15.8-71.9 [facility] Comment on above: Performed By: #### Y ALPFB ####[facility] (DEFAULT)[address] [facility] [place] [address] CBC AND ELECTRONIC DIFFon Erythrocyte distribution width (RBC) [Ratio] 17.4 % High 10.9 - 14.3 % [facility] Hematocrit (Bld) [Volume fraction] 34.7 % Low 39.6 - 48.8 % [facility] Hemoglobin (Bld) [Mass/Vol] 10.5 g/dL Low 13.4 - 16.8 g/dL [facility] MCH (RBC) [Entitic mass] 27.1 pg 26.1 - 33.3 pg [facility] MCHC (RBC) [Mass/Vol] 30.3 g/dL Low 31.9 - 36.5 g/dL [facility] MCV (RBC) [Entitic vol] 89.7 fL 79.0 - 94.5 fL [facility] Platelet mean volume (Bld) [Entitic vol] 10.0 fL 8.7 - 12.3 fL [facility] Platelets (Bld) [#/Vol] 464 10*3/uL High 146 - 337 K/uL [facility] RBC (Bld) [#/Vol] 3.87 10*6/uL Low [facility] WBC (Bld) [#/Vol] 2.17 10*3/uL Low 3.73 - 10. 10 K/uL [facility] Hematocrit (Bld) [Volume fraction] 34.7 % Low 39.6-48.8 [facility] Comment on above: Performed By: #### L [id number] ####[facility] (DEFAULT)[address] [place] [address] Hemoglobin (Bld) [Mass/Vol] 10.5 g/dL Low 13.4-16.8 [facility] Comment on above: Performed By: #### L [id number] ####[facility] (DEFAULT)[address] [place] [address] MCV (RBC) [Entitic vol] 89.7 fL Normal 79.0-94.5 [facility] Comment on above: Performed By: #### L [id number] ####[facility] (DEFAULT)[address] [place] [address] Mean Cell Hgb 27.1 pg Normal 26.1-33.3 [facility] Comment on above: Performed By: #### L [id number] ####[facility] (DEFAULT)[address] [place] [address] [place] [address] Mean Cell Hgb Conc 30.3 g/dL Low 31.9-36.5 [facility] Comment on above: Performed By: #### L [id number] ####[facility] (DEFAULT)[address] [place] [address] Platelet mean volume (Bld) [Entitic vol] 10.0 fL Normal 8.7-12.3 [facility] Comment on above: Performed By: #### L [id number] ####[facility] (DEFAULT)[address] [place] [address], [place] [address] Platelets (Bld) [#/Vol] 464 10*3/uL High 146-337 [facility] Comment on above: Performed By: #### L [id number] ####[facility] (DEFAULT)[address] [place] [address] RBC (Bld) [#/Vol] 3.87 10*6/uL Low 4.38-5.83 [facility] Comment on above: Performed By: #### L [id number] ####[facility] (DEFAULT)[address] [place] [address] RBC Distribution 17.4 % High 10.9-14.3 [facility] Comment on above: Performed By: #### L [id number] ####[facility] (DEFAULT)[address] [place] [address] WBC (Bld) [#/Vol] 2.17 10*3/uL Low 3.73-10.10 [facility] Comment on above: Performed By: #### L [id number] ####[facility] (DEFAULT)[address] [place] [address] CHEM 7 (LYTES,BUN,CREA,GLUC) on 12-31-2024 Anion gap [Moles/Vol] 12 mmol/L 7 - 17 mmol/L [facility] Chloride [Moles/Vol] 102 mmol/L 98 - 10 8 mmol/L [facility] CO2 [Moles/Vol] 24 mmol/L 21 - 31 mmol/L [facility] Creatinine [Mass/Vol] 0.90 mg/dL 0.70 - 1.30 mg/dL [facility] eGFR, CKD-EPI, Male - PINF [facility] Comment on above: Reported eGFR is bas ed on the CKD-EPI 2020 equation using creatinine, age, and sex. Glucose [Mass/Vol] 128 mg/dL 70 - 179 mg/dL [facility] Osmolality Calc [Osmolality] 287 [facility] Potassium [Moles/Vol] 4.2 mmol/L 3.5 - 5.0 mmol/L [facility] Sodium [Moles/Vol] 134 mmol/L Low 135 - 145 mmol/L [facility] Urea nitrogen [Mass/Vol] 23 mg/dL 7 - 25 mg/dL [facility] Urea nitrogen/Creatinine [Mass ratio] 26 mg/mg [facility] Anion gap [Moles/Vol] 12 mmol/L Normal 7-17 [facility] Comment on above: Performed By: #### ROMINA HUYNH ####[facility] (DEFAULT)[address] [place] [address] Chloride [Moles/Vol] 102 mmol/L Normal 98-108 [facility] Comment on above: Performed By: #### SHERLEY HUYNH7 ####[facility] (DEFAULT)[address] [place] [address] CO2 [Moles/Vol] 24 mmol/L Normal 21-31 [facility] Comment on above: Performed By: #### SHERLEY HUYNH7 ####[facility] (DEFAULT)[address] [place] [address] Creatinine [Mass/Vol] 0.90 mg/dL Normal 0.70-1.30 [facility] Comment on above: Performed By: #### SHERLEY HUYNH7 ####[facility] (DEFAULT)[address] [facility] [place] [place] [address] eGFR, CKD-EPI, Male > Normal >=60 [facility] Comment on above: Result Comment: Repo rted eGFR is based on the CKD-EPI 2020 equation using creatinine, age, and sex. Performed By: #### H JAKE CHM7 ####[facility] (DEFAULT)[address] [place] [address] Glucose [Mass/Vol] 128 mg/dL Normal Nonfastin -179 mg/dL; Fastin-99 [facility] Comment on above: Performed By: #### H JAKE CHM7 ####[facility] (DEFAULT)[address] [facility] [place] [address] Osmolality [Osmolality] 287 mosm/kg Normal 278-305 [facility] Comment on above: Performed By: #### H JAKE, CHM7 ####[facility] (DEFAULT)[address] [facility] [place] [address] Potassium [Moles/Vol] 4.2 mmol/L Normal 3.5-5.0 [facility] Comment on above: Performed By: #### H JAKE, CHM7 ####[facility] (DEFAULT)[address] [place] [address] Sodium [Moles/Vol] 134 mmol/L Low 135-145 [facility] Comment on above: Performed By: #### H JAKE, CHM7 ####[facility] (DEFAULT)[address] [facility] [place] [address] Urea nitrogen [Mass/Vol] 23 mg/dL Normal 7-25 [facility] Comment on above: Performed By: #### H JAKE, CHM7 ####[facility] (DEFAULT)[address] [facility] [place] [place] [address] Urea nitrogen/Creatinine [Mass ratio] 26 mg/mg Normal [facility] Comment on above: Performed By: #### H JAKE, CHM7 ####[facility] (DEFAULT)[address] [place] [address] HEPATIC FUNCTION PANELon Albumin [Mass/Vol] 3.3 g/dL Low 3.5 - 5.0 g/dL [facility] ALP [Catalytic activity/Vol] 613 U/L High 32 - 126 U/L [facility] ALT [Catalytic activity/Vol] 7 U/L Low 10 - 52 U/L [facility] AST [Catalytic activity/Vol] 16 U/L 10 - 39 U/L [facility] Bilirubin [Mass/Vol] 0.3 mg/dL NINF - 1.5 mg/dL [facility] Bilirubin.direct [Mass/Vol] 0.1 mg/dL NINF - 0.3 mg/dL [facility] Protein [Mass/Vol] 6.5 g/dL 6.4 - 8.3 g/dL [facility] Albumin [Mass/Vol] 3.3 g/dL Low 3.5-5.0 [facility] Comment on above: Performed By: #### H JAKE, CHM7 ####[facility] (DEFAULT)[address] [place] [address] ALP [Catalytic activity/Vol] 613 U/L High 32-126 [facility] Comment on above: Performed By: #### H JAKE, CHM7 ####[facility] (DEFAULT)[address] [place] [address] ALT [Catalytic activity/Vol] 7 U/L Low 10-52 [facility] Comment on above: Performed By: #### H FP, CHM7 ####[facility] (DEFAULT)[address] [place] [address] AST [Catalytic activity/Vol] 16 U/L Normal 10-39 [facility] Comment on above: Performed By: #### H FP, CHM7 ####[facility] (DEFAULT)[address] [place] [address] Bilirubin [Mass/Vol] 0.3 mg/dL Normal <1.5 [facility] Comment on above: Performed By: #### H ROMINA JOSEPH ####[facility] (DEFAULT)[address] [place] [address] Bilirubin.indirect [Mass/Vol] 0.1 mg/dL Normal <0.3 [facility] Comment on above: Performed By: #### ROMINA HUYNH ####[facility] (DEFAULT)[address] [place] [address] Protein [Mass/Vol] 6.5 g/dL Normal 6.4-8.3 [facility] Comment on above: Performed By: #### SHERLEY HUYNH7 ####[facility] (DEFAULT)[address] [place] [address], [place] [address] MANUAL DIFFon 12-31-2024 Band form neutrophils/100 WBC (Bld) 0.9 % [facility] Basophils (Bld) [#/Vol] 0.04 10*3/uL 0.00 - 0.09 K/uL [facility] Basophils/100 WBC (Bld) 1.7 % [facility] Differential cell count method Nom (Bld) Manual Differential [facility] Eosinophils (Bld) [#/Vol] 0.00 10*3/uL [facility] Eosinophils/100 WBC (Bld) 0.0 % [facility] Lymphocytes (Bld) [#/Vol] 0.89 10*3/uL 0.83 - 3.57 K/uL [facility] Lymphocytes/100 WBC (Bld) 41.0 % [facility] Monocytes (Bld) [#/Vol] 0.26 10*3/uL 0.24 - 0.93 K/uL [facility] Monocytes/100 WBC (Bld) 12.0 % [facility] Neutrophils (Bld) [#/Vol] 0.98 10*3/uL Low 1.57 - 6.19 K/uL [facility] Nucleated RBC/100 WBC (Bld) [Ratio] 1.0 % High [facility] Platelets Estimate (Bld) [#/Vol] Automated platelet count confirmed by manual slide review [facility] RBC morphology finding Nom (Bld) RBC INDICES CONFIRMED WITH MANUAL SLIDE REVIEW [facility] Segmented neutrophils/100 WBC (Bld) 44.4 % [facility] Comment on above: Dohle bodies present &XD&&XA&Toxic granulation present No Panel Informationon 12-31 Interpretation and review of laboratory results Abnormal [facility] Interpretation and review of laboratory results Abnormal [facility] TACROLIMUS LEVEL, TROUGH (PA E DRUG LEVEL)on 12-31-2024 Tacrolimus (Bld) [Mass/Vol] 7.7 ng/mL Bone Marrow Transplant: 5.0-15.0 Kidney/Pancre atic Transplant: 0 to 3 months: 8.0-10.0, 3 to 12 months: 6.0-8.0, >12 months: 4.0-6.0 [facility] Method performed is a chemiluminescent microparticle immunoasssay on the [employer]. The range is based on experience at [facility] and users should be aware that target concentrations vary widely depending on concomitant therapy, time post-transplant, and desired degree of immunosuppression. [facility] Tacrolimus, Trough 7.7 ng/mL Normal Bone Veronique ow Transplant: 5.0-15.0 Kidney/Pancre atic Transplant: 0 to 3 months: 8.0-10.0, 3 to 12 months: 6.0-8.0, >12 months: 4.0-6.0 [facility] Comment on above: Order Comment: Pleas e draw at specified interval PRIOR to dose. Do not hold dose to wait for level. Specimens batched twice per day, (M-F) and once per day weekendsMethod performed is a chemiluminescent microparticle immunoasssay on the [employer] I.The range is based on experience at [facility] and users should be aware that target concentrations vary widely depending on concomitant therapy, time post-transplant, and desired degree of immunosuppression. Performed By: #### T ACRO ####[facility] (DEFAULT)[address] [place] [address] CBC AND ELECTRONIC DIFFon Erythrocyte distribution width (RBC) [Ratio] 17.5 % High 10.9 - 14.3 % [facility] Hematocrit (Bld) [Volume fraction] 31.5 % Low 39.6 - 48.8 % [facility] Hemoglobin (Bld) [Mass/Vol] 9.9 g/dL Low 13.4 - 16.8 g/dL [facility] MCH (RBC) [Entitic mass] 28.2 pg 26.1 - 33.3 pg [facility] MCHC (RBC) [Mass/Vol] 31.4 g/dL Low 31.9 - 36.5 g/dL [facility] MCV (RBC) [Entitic vol] 89.7 fL 79.0 - 94.5 fL [facility] Platelet mean volume (Bld) [Entitic vol] 10.3 fL 8.7 - 12.3 fL [facility] Platelets (Bld) [#/Vol] 455 10*3/uL High 146 - 337 K/uL [facility] RBC (Bld) [#/Vol] 3.51 10*6/uL Low [facility] WBC (Bld) [#/Vol] 2.22 10*3/uL Low 3.73 - 10. 10 K/uL [facility] Hematocrit (Bld) [Volume fraction] 31.5 % Low 39.6-48.8 [facility] Comment on above: Performed By: #### L [id number] ####[facility] (DEFAULT)[address] [place] [address] Hemoglobin (Bld) [Mass/Vol] 9.9 g/dL Low 13.4-16.8 [facility] Comment on above: Performed By: #### L [id number] ####[facility] (DEFAULT)[address] [place] [address] MCV (RBC) [Entitic vol] 89.7 fL Normal 79.0-94.5 [facility] Comment on above: Performed By: #### L [id number] ####[facility] (DEFAULT)[address] [facility] [place] [address] Mean Cell Hgb 28.2 pg Normal 26.1-33.3 [facility] Comment on above: Performed By: #### L [id number] ####[facility] (DEFAULT)[address] [facility] [address] Mean Cell Hgb Conc 31.4 g/dL Low 31.9-36.5 [facility] Comment on above: Performed By: #### L [id number] ####[facility] (DEFAULT)[address] [place] [address] Platelet mean volume (Bld) [Entitic vol] 10.3 fL Normal 8.7-12.3 [facility] Comment on above: Performed By: #### L [id number] ####[facility] (DEFAULT)[address] [place] [address] Platelets (Bld) [#/Vol] 455 10*3/uL High 146-337 [facility] Comment on above: Performed By: #### L [id number] ####[facility] (DEFAULT)[address] [facility] [place] [address] RBC (Bld) [#/Vol] 3.51 10*6/uL Low 4.38-5.83 [facility] Comment on above: Performed By: #### L [id number] ####[facility] (DEFAULT)[address] [facility] [place] [address] RBC Distribution 17.5 % High 10.9-14.3 [facility] Comment on above: Performed By: #### L [id number] ####[facility] (DEFAULT)[address] [facility] [place] [address] WBC (Bld) [#/Vol] 2.22 10*3/uL Low 3.73-10.10 [facility] Comment on above: Performed By: #### L [id number] ####[facility] (DEFAULT)[address] [place] [address] CHEM 7 (LYTES,BUN,CREA,GLUC) on 12-30-2024 Anion gap [Moles/Vol] 15 mmol/L 7 - 17 mmol/L [facility] Chloride [Moles/Vol] 102 mmol/L 98 - 10 8 mmol/L [facility] CO2 [Moles/Vol] 22 mmol/L 21 - 31 mmol/L [facility] Creatinine [Mass/Vol] 0.89 mg/dL 0.70 - 1.30 mg/dL [facility] eGFR, CKD-EPI, Male - PINF [facility] Comment on above: Reported eGFR is bas ed on the CKD-EPI 2020 equation using creatinine, age, and sex. Glucose [Mass/Vol] 89 mg/dL 70 - 179 mg/dL [facility] Osmolality Calc [Osmolality] 286 [facility] Potassium [Moles/Vol] 4.8 mmol/L 3.5 - 5.0 mmol/L [facility] Sodium [Moles/Vol] 134 mmol/L Low 135 - 145 mmol/L [facility] Urea nitrogen [Mass/Vol] 23 mg/dL 7 - 25 mg/dL [facility] Urea nitrogen/Creatinine [Mass ratio] 26 mg/mg [facility] Anion gap [Moles/Vol] 15 mmol/L Normal 7-[address] Comment on above: Performed By: #### H JAKE, CHM7 ####[facility] (DEFAULT)[address] [place] [address] Chloride [Moles/Vol] 102 mmol/L Normal 98-108 [facility] Comment on above: Performed By: #### H FP, CHM7 ####[facility] (DEFAULT)[address] [place] [address] CO2 [Moles/Vol] 22 mmol/L Normal 21-31 [facility] Comment on above: Performed By: #### H YISSEL JOSEPHM7 ####[facility] (DEFAULT)[address] [facility] [place] [address] Creatinine [Mass/Vol] 0.89 mg/dL Normal 0.70-1.30 [facility] Comment on above: Performed By: #### H JAKE CHM7 ####[facility] (DEFAULT)[address] [place] [address] eGFR, CKD-EPI, Male > Normal >=60 [facility] Comment on above: Result Comment: Repo rted eGFR is based on the CKD-EPI 2020 equation using creatinine, age, and sex. Performed By: #### H SHERLEY JOSEPH7 ####[facility] (DEFAULT)[address] [place] [address] Glucose [Mass/Vol] 89 mg/dL Normal Nonfastin -179 mg/dL; Fastin-99 [facility] Comment on above: Performed By: #### H YISSEL JOSEPHM7 ####[facility] (DEFAULT)[address] [place] [address] Osmolality [Osmolality] 286 mosm/kg Normal 278-305 [facility] Comment on above: Performed By: #### H JAKE CHM7 ####[facility] (DEFAULT)[address] [place] [address] Potassium [Moles/Vol] 4.8 mmol/L Normal 3.5-5.0 [facility] Comment on above: Performed By: #### H JAKE CHM7 ####[facility] (DEFAULT)[address] [facility] [place] [address] Sodium [Moles/Vol] 134 mmol/L Low 135-145 [facility] Comment on above: Performed By: #### H JAKE CHM7 ####[facility] (DEFAULT)[address] [place] [address] Urea nitrogen [Mass/Vol] 23 mg/dL Normal 7-25 [facility] Comment on above: Performed By: #### H SHERLEY JOSEPH7 ####[facility] (DEFAULT)[address] [place] [address] Urea nitrogen/Creatinine [Mass ratio] 26 mg/mg Normal [facility] Comment on above: Performed By: #### SHERLEY HUYNH7 ####[facility] (DEFAULT)[address] [place] [address] HEPATIC FUNCTION PANELon Albumin [Mass/Vol] 3.1 g/dL Low 3.5 - 5.0 g/dL [facility] ALP [Catalytic activity/Vol] 592 U/L High 32 - 126 U/L [facility] ALT [Catalytic activity/Vol] 5 U/L Low 10 - 52 U/L [facility] AST [Catalytic activity/Vol] 14 U/L 10 - 39 U/L [facility] Bilirubin [Mass/Vol] 0.3 mg/dL [facility]F - 1.5 mg/dL [facility] Bilirubin.direct [Mass/Vol] 0.1 mg/dL [facility]F - 0.3 mg/dL [facility] Protein [Mass/Vol] 5.8 g/dL Low 6.4 - 8.3 g/dL [facility] Albumin [Mass/Vol] 3.1 g/dL Low 3.5-5.0 [facility] Comment on above: Performed By: #### H SHERLEY JOSEPH7 ####[facility] (DEFAULT)[address] [place] [address] ALP [Catalytic activity/Vol] 592 U/L High 32-126 [facility] Comment on above: Performed By: #### H JAKE, CHM7 ####[facility] (DEFAULT)[address] [place] [address] ALT [Catalytic activity/Vol] 5 U/L Low 10-52 [facility] Comment on above: Performed By: #### H ROMINA JOSEPH ####[facility] (DEFAULT)[address] [facility] [address] AST [Catalytic activity/Vol] 14 U/L Normal 10-39 [facility] Comment on above: Performed By: #### Gurjit JOSEPH, YISSELM7 ####[facility] (DEFAULT)[address] [place] [address] Bilirubin [Mass/Vol] 0.3 mg/dL Normal <1.5 [facility] Comment on above: Performed By: #### Gurjit JOSEPH, SHERLEY7 ####[facility] (DEFAULT)[address] [facility] [place] [address] Bilirubin.indirect [Mass/Vol] 0.1 mg/dL Normal <0.3 [facility] Comment on above: Performed By: #### Gurjit JOSEPH, YISSELM7 ####[facility] (DEFAULT)[address] [place] [address] Protein [Mass/Vol] 5.8 g/dL Low 6.4-8.3 [facility] Comment on above: Performed By: #### Gurjit JOSEPH, CHM7 ####[facility] (DEFAULT)[address] [place] [address] MANUAL DIFFon 12-30-2024 Band form neutrophils/100 WBC (Bld) 0.8 % [facility] Basophils (Bld) [#/Vol] 0.00 10*3/uL 0.00 - 0.09 K/uL [facility] Basophils/100 WBC (Bld) 0.0 % [facility] Differential cell count method Nom (Bld) Manual Differential [facility] Eosinophils (Bld) [#/Vol] 0.00 10*3/uL [facility] Eosinophils/100 WBC (Bld) 0.0 % [facility] Lymphocytes (Bld) [#/Vol] 0.72 10*3/uL Low 0.83 - 3.57 K/uL [facility] Lymphocytes/100 WBC (Bld) 32.5 % [facility] Metamyelocytes (Bld) [#/Vol] 0.02 10*3/uL NINF - 0.07 K/uL [facility] Metamyelocytes.neutro philic/100 WBC Manual cnt (Bld) 0.8 % [facility] Monocytes (Bld) [#/Vol] 0.44 10*3/uL 0.24 - 0.93 K/uL [facility] Monocytes/100 WBC (Bld) 20.0 % [facility] Neutrophils (Bld) [#/Vol] 1.04 10*3/uL Low 1.57 - 6.19 K/uL [facility] Ovalocytes LM Ql (Bld) Present Abnormal (none) [facility] Platelets Estimate (Bld) [#/Vol] Automated platelet count confirmed by manual slide review [facility] RBC morphology finding Nom (Bld) RBC INDICES CONFIRMED WITH MANUAL SLIDE REVIEW [facility] Segmented neutrophils/100 WBC (Bld) 45.9 % [facility] Target cells LM Ql (Bld) Present Abnormal (none) [facility] MR Abdomen WO and W contrast Matthew 12-30-2024 IMPRESSION: 1. Motion degraded examination. 2. Postsurgical changes related to prior liver transplant without focal arterial enhancing lesion. 3. Status post cholecystectomy with mild dilatation of the common bile duct approximately 8 mm with distal tapering. OLOGY EXAM: MRI ABDOMEN WI TH AND WITHOUT CONTRAST, 12/30/2024 08:44 AM CLINICAL INDICATIONS: h/o liver transplant; need MRCP with eovist to eval biliary tree Sex: Male, Age: 59 years COMPARISON: MRI ABDOMEN WITHOUT CONTRAST August 05, 2024 TECHNIQUE: Multiplanar, multisequence MRI scanning was performed of the abdomen before and after the administration of intravenous contrast. Eovist was utilized as the intravenous contrast agent. T2 weighted MRCP imaging was performed. CONTRAST: Gadoxetate Disodium (EOVIST) SOLN 1-25 mL; Route of Administration: Intravenous; Dose: 10 mL. FINDINGS: Study is slightly degraded by motion artifact. Lung Bases: Normal. Liver: Status post liver transplant. No suspicious lesion. Gallbladder: Cholecystectomy. Bile Ducts: Mildly dilated to approximately 8 mm, which may be normal for a patient after cholecystectomy. Spleen: Normal. Pancreas: Normal. Adrenals: Normal. Right Kidney: Normal. No hydronephrosis. Left Kidney: Normal. No hydronephrosis. Gastrointestinal: No bowel dilation or wall thickening. Peritoneum/retroperitoneu m: No ascites. Lymph nodes: No enlarged or morphologically abnormal lymph nodes. Vasculature: The abdominal aorta is normal in course and caliber. Patent celiac and superior mesenteric arteries. Patent portal, splenic, and superior mesenteric veins. Body Wall: Normal. Bones: Normal for patient age. No aggressive lesion. RADIOLOGY Roman Kelly MD - 12/30/2024 EXAM: MRI ABDOMEN WITH AND WITHOUT CONTRAST, 12/30/2024 08:44 AM CLINICAL INDICATIONS: h/o liver transplant; need MRCP with eovist to eval biliary tree Sex: Male, Age: 59 years COMPARISON: MRI ABDOMEN WITHOUT CONTRAST August 05, 2024 TECHNIQUE: Multiplanar, multisequence MRI scanning was performed of the abdomen before and after the administration of intravenous contrast. Eovist was utilized as the intravenous contrast agent. T2 weighted MRCP imaging was performed. CONTRAST: Gadoxetate Disodium (EOVIST) SOLN 1-25 mL; Route of Administration: Intravenous; Dose: 10 mL. FINDINGS: Study is slightly degraded by motion artifact. Lung Bases: Normal. Liver: Status post liver transplant. No suspicious lesion. Gallbladder: Cholecystectomy. Bile Ducts: Mildly dilated to approximately 8 mm, which may be normal for a patient after cholecystectomy. Spleen: Normal. Pancreas: Normal. Adrenals: Normal. Right Kidney: Normal. No hydronephrosis. Left Kidney: Normal. No hydronephrosis. Gastrointestinal: No bowel dilation or wall thickening. Peritoneum/retroperitoneu m: No ascites. Lymph nodes: No enlarged or morphologically abnormal lymph nodes. Vasculature: The abdominal aorta is normal in course and caliber. Patent celiac and superior mesenteric arteries. Patent portal, splenic, and superior mesenteric veins. Body Wall: Normal. Bones: Normal for patient age. No aggressive lesion. IMPRESSION IMPRESSION: 1. Motion degraded examination. 2. Postsurgical changes related to prior liver transplant without focal arterial enhancing lesion. 3. Status post cholecystectomy with mild dilatation of the common bile duct approximately 8 mm with distal tapering. [facility] Radiology Study observation (narrative) [facility] MR Abdomen WO and W contrast IVOrdered By: Roman Kelly on 12-30-2024 [facility] Work Phone: MRI ABDOMEN WITH AND WITHOUT CONTRASTon 12-30-2024 MRI ABDOMEN WITH AND WITHOUT CONTRAST Normal [facility] No Panel Informationon 12-30 Interpretation and review of laboratory results Abnormal [facility] Interpretation and review of laboratory results Abnormal [facility] TACROLIMUS LEVEL, TROUGH (PA E DRUG LEVEL)on 12-30-2024 Tacrolimus (Bld) [Mass/Vol] 6.4 ng/mL Bone Marrow Transplant: 5.0-15.0 Kidney/Pancre atic Transplant: 0 to 3 months: 8.0-10.0, 3 to 12 months: 6.0-8.0, >12 months: 4.0-6.0 [facility] Method performed is a chemiluminescent microparticle immunoasssay on the [employer]. The range is based on experience at [facility] and users should be aware that target concentrations vary widely depending on concomitant therapy, time post-transplant, and desired degree of immunosuppression. [facility] Tacrolimus, Trough 6.4 ng/mL Normal Bone Veronique ow Transplant: 5.0-15.0 Kidney/Pancre atic Transplant: 0 to 3 months: 8.0-10.0, 3 to 12 months: 6.0-8.0, >12 months: 4.0-6.0 [facility] Comment on above: Order Comment: Pleas e draw at specified interval PRIOR to dose. Do not hold dose to wait for level. Specimens batched twice per day, (M-F) and once per day weekendsMethod performed is a chemiluminescent microparticle immunoasssay on the [employer] I.The range is based on experience at [facility] and users should be aware that target concentrations vary widely depending on concomitant therapy, time post-transplant, and desired degree of immunosuppression. Performed By: #### T ACRO ####[facility] (DEFAULT)[address] [place] [address] CALCIUMon 12-29-2024 Calcium [Mass/Vol] 8.5 mg/dL Low 8.6 - 10. 5 mg/dL [facility] Calcium [Mass/Vol] 8.5 mg/dL Low 8.6-10.5 [facility] Comment on above: Performed By: #### I PB, HFP, CHM7, MGO, CA ####[facility] (DEFAULT)[address] [place] [address] CBC AND ELECTRONIC DIFFon Erythrocyte distribution width (RBC) [Ratio] 17.3 % High 10.9 - 14.3 % [facility] Hematocrit (Bld) [Volume fraction] 32.3 % Low 39.6 - 48.8 % [facility] Hemoglobin (Bld) [Mass/Vol] 10.1 g/dL Low 13.4 - 16.8 g/dL [facility] MCH (RBC) [Entitic mass] 27.5 pg 26.1 - 33.3 pg [facility] MCHC (RBC) [Mass/Vol] 31.3 g/dL Low 31.9 - 36.5 g/dL [facility] MCV (RBC) [Entitic vol] 88.0 fL 79.0 - 94.5 fL [facility] Platelet mean volume (Bld) [Entitic vol] 9.7 fL 8.7 - 12.3 fL [facility] Comment on above: This is an appended report. These results have been appended to a previously preliminary verified report. Platelets (Bld) [#/Vol] 487 10*3/uL High 146 - 337 K/uL [facility] Comment on above: This is an appended report. These results have been appended to a previously preliminary verified report. RBC (Bld) [#/Vol] 3.67 10*6/uL Low [facility] WBC (Bld) [#/Vol] 2.46 10*3/uL Low 3.73 - 10. 10 K/uL [facility] Hematocrit (Bld) [Volume fraction] 32.3 % Low 39.6-48.8 [facility] Comment on above: Performed By: #### L [id number] ####[facility] (DEFAULT)[address] [place] [address] Hemoglobin (Bld) [Mass/Vol] 10.1 g/dL Low 13.4-16.8 [facility] Comment on above: Performed By: #### L [id number] ####[facility] (DEFAULT)[address] [place] [address] MCV (RBC) [Entitic vol] 88.0 fL Normal 79.0-94.5 [facility] Comment on above: Performed By: #### L [id number] ####[facility] (DEFAULT)[address] [place] [address], [place] [address] Mean Cell Hgb 27.5 pg Normal 26.1-33.3 [facility] Comment on above: Performed By: #### L [id number] ####[facility] (DEFAULT)[address] [place] [address] Mean Cell Hgb Conc 31.3 g/dL Low 31.9-36.5 [facility] Comment on above: Performed By: #### L [id number] ####[facility] (DEFAULT)[address] [place] [address] Platelet mean volume (Bld) [Entitic vol] 9.7 fL Normal 8.7-12.3 [facility] Comment on above: Result Comment: This is an appended report. These results have been appended to a previously preliminary verified report. Performed By: #### L [id number] ####[facility] (DEFAULT)[address] [place] [id number] Platelets (Bld) [#/Vol] 487 10*3/uL High 146-337 [facility] Comment on above: Result Comment: This is an appended report. These results have been appended to a previously preliminary verified report. Performed By: #### L [id number] ####[facility] (DEFAULT)[address] [place] [address] RBC (Bld) [#/Vol] 3.67 10*6/uL Low 4.38-5.83 [facility] Comment on above: Performed By: #### L [id number] ####[facility] (DEFAULT)[address] [place] [address] RBC Distribution 17.3 % High 10.9-14.3 [facility] Comment on above: Performed By: #### L [id number] ####[facility] (DEFAULT)[address] [place] [address] WBC (Bld) [#/Vol] 2.46 10*3/uL Low 3.73-10.10 [facility] Comment on above: Performed By: #### L [id number] ####[facility] (DEFAULT)[address] [place] [address] CHEM 7 (LYTES,BUN,CREA,GLUC) on 12-29-2024 Anion gap [Moles/Vol] 13 mmol/L 7 - 17 mmol/L [facility] Chloride [Moles/Vol] 104 mmol/L 98 - 10 8 mmol/L [facility] CO2 [Moles/Vol] 26 mmol/L 21 - 31 mmol/L [facility] Creatinine [Mass/Vol] 1.03 mg/dL 0.70 - 1.30 mg/dL [facility] eGFR, CKD-EPI, Male 83 - PINF [facility] Comment on above: Reported eGFR is bas ed on the CKD-EPI 2020 equation using creatinine, age, and sex. Glucose [Mass/Vol] 97 mg/dL 70 - 179 mg/dL [facility] Osmolality Calc [Osmolality] 296 [facility] Potassium [Moles/Vol] 4.6 mmol/L 3.5 - 5.0 mmol/L [facility] Sodium [Moles/Vol] 138 mmol/L 135 - 145 mmol/L [facility] Urea nitrogen [Mass/Vol] 29 mg/dL High 7 - 25 mg/dL [facility] Urea nitrogen/Creatinine [Mass ratio] 28 mg/mg [facility] Anion gap [Moles/Vol] 13 mmol/L Normal 7-17 [facility] Comment on above: Performed By: #### I PB, HFP, CHM7, MGO, CA ####[facility] (DEFAULT)[address] [place] [address] Chloride [Moles/Vol] 104 mmol/L Normal 98-108 [facility] Comment on above: Performed By: #### I PB, HFP, CHM7, MGO, CA ####[facility] (DEFAULT)[address] [place] [address] CO2 [Moles/Vol] 26 mmol/L Normal 21-31 [facility] Comment on above: Performed By: #### I PB, HFP, CHM7, MGO, CA ####[facility] (DEFAULT)[address] [place] [address] Creatinine [Mass/Vol] 1.03 mg/dL Normal 0.70-1.30 [facility] Comment on above: Performed By: #### I PB, HFP, CHM7, MGO, CA ####[facility] (DEFAULT)[address] [place] [address] GFR/1.73 sq M.predicted among non-blacks MDRD (S/P/Bld) [Vol rate/Area] 83 mL/min/{1.73_m2} Normal >=60 [facility] Comment on above: Result Comment: Repo rted eGFR is based on the CKD-EPI 2020 equation using creatinine, age, and sex. Performed By: #### I PB, HFP, CHM7, MGO, CA ####[facility] (DEFAULT)[address] [place] [address] Glucose [Mass/Vol] 97 mg/dL Normal Nonfastin -179 mg/dL; Fastin-99 [facility] Comment on above: Performed By: #### I PB, HFP, CHM7, MGO, CA ####[facility] (DEFAULT)[address] [place] [address] Osmolality [Osmolality] 296 mosm/kg Normal 278-305 [facility] Comment on above: Performed By: #### I PB, HFP, CHM7, MGO, CA ####[facility] (DEFAULT)[address] [facility] [address] Potassium [Moles/Vol] 4.6 mmol/L Normal 3.5-5.0 [facility] Comment on above: Performed By: #### I PB, HFP, CHM7, MGO, CA ####[facility] (DEFAULT)[address] [place] [address] Sodium [Moles/Vol] 138 mmol/L Normal 135-145 [facility] Comment on above: Performed By: #### I PB, HFP, CHM7, MGO, CA ####U [facility] (DEFAULT)[address] [place] [address] Urea nitrogen [Mass/Vol] 29 mg/dL High 7-25 [facility] Comment on above: Performed By: #### I PB, HFP, CHM7, MGO, CA ####[facility] (DEFAULT)[address] [facility] [place] [address] Urea nitrogen/Creatinine [Mass ratio] 28 mg/mg Normal [facility] Comment on above: Performed By: #### I PB, HFP, CHM7, MGO, CA ####[facility] (DEFAULT)[address] [place] [address] CMV BY PCR, QUANTITATIVE, BL OODOrdered By: Maryanne Barrow on 12-29-2024 CMV DNA JACKY+probe (P) [Log units/Vol] [facility] Comment on above: CMV Not Detected CMV DNA JACKY+probe (P) [Log units/Vol] Not detected Not Detected [facility] CMV DNA AJCKY+probe Qn (P) [facility] Comment on above: CMV Not Detected Interpretation and review of laboratory results Normal [facility] This test was perfor med using a real time PCR assay. The dynamic range for this assay is 34.5-10,000,000 IU/mL (1.54-7.00 Log IU/mL). [facility] EBV BY PCR, QUANTITATIVE,BLO ODon 12-29-2024 EBV DNA JACKY+probe (Bld) [Log units/Vol] [facility] Comment on above: EBV Not Detected EBV DNA JACKY+probe (Unsp spec) [#/Vol] [facility] Comment on above: EBV Not Detected EBV DNA JACKY+probe (Unsp spec) [#/Vol] Not detected Not Detected [facility] Interpretation and review of laboratory results Normal [facility] This test was perfor med using a real time PCR assay. The dynamic range for this assay is 35-100,000,000 IU/mL (1.54-8.00 Log IU/mL). [facility] GENERAL PROCEDUREon 12-30-19 [facility] Radiology Study observation (narrative) [facility] HEPATIC FUNCTION PANELon Albumin [Mass/Vol] 3.2 g/dL Low 3.5 - 5.0 g/dL [facility] ALP [Catalytic activity/Vol] 628 U/L High 32 - 126 U/L [facility] ALT [Catalytic activity/Vol] 6 U/L Low 10 - 52 U/L [facility] AST [Catalytic activity/Vol] 10 U/L 10 - 39 U/L [facility] Bilirubin [Mass/Vol] 0.3 mg/dL NINF - 1.5 mg/dL [facility] Bilirubin.direct [Mass/Vol] 0.1 mg/dL NINF - 0.3 mg/dL [facility] Protein [Mass/Vol] 6.1 g/dL Low 6.4 - 8.3 g/dL [facility] Albumin [Mass/Vol] 3.2 g/dL Low 3.5-5.0 [facility] Comment on above: Performed By: #### I PB, HFP, CHM7, MGO, CA ####[facility] (DEFAULT)[address] [place] [address] ALP [Catalytic activity/Vol] 628 U/L High 32-126 [facility] Comment on above: Performed By: #### I PB, HFP, CHM7, MGO, CA ####[facility] (DEFAULT)[address] [place] [address] ALT [Catalytic activity/Vol] 6 U/L Low 10-52 [facility] Comment on above: Performed By: #### I PB, HFP, CHM7, MGO, CA ####[facility] (DEFAULT)[address] [place] [address] AST [Catalytic activity/Vol] 10 U/L Normal 10-39 [facility] Comment on above: Performed By: #### I PB, HFP, CHM7, MGO, CA ####[facility] (DEFAULT)[address] [place] [address] Bilirubin [Mass/Vol] 0.3 mg/dL Normal <1.5 [facility] Comment on above: Performed By: #### I PB, HFP, CHM7, MGO, CA ####[facility] (DEFAULT)[address] [place] [address] Bilirubin.indirect [Mass/Vol] 0.1 mg/dL Normal <0.3 [facility] Comment on above: Performed By: #### I PB, HFP, CHM7, MGO, CA ####[facility] (DEFAULT)[address] [place] [address] Protein [Mass/Vol] 6.1 g/dL Low 6.4-8.3 [facility] Comment on above: Performed By: #### I PB, HFP, CHM7, MGO, CA ####[facility] (DEFAULT)[address] [place] [address] INSERTION CVC TUNNELEDon INSERTION CVC TUNNELED Normal [facility] IMPRESSION: Successf ul placement of a right-sided tunneled powerline central venous catheter. Marcos Turner M.D. was in the room and participated during all [place] portions of this procedure. I personally viewed and interpreted these images and I have reviewed and approved this report. OLOGY EXAM: IR INSERTION C VC TUNNELED, 12/29/2024 11:21 AM CLINICAL INDICATIONS: 59 year old male requiring central venous access for therapy. MEDICATIONS: 10:45 AM 12/29/24 fentaNYL (SUBLIMAZE) injection 0-300 mcg Ordered and Given 50 mcg Given Rate: 0 Route: Intravenous; 10:45 AM 12/29/24 Midazolam (VERSED) injection 0-10 mg Ordered and Given 1 mg Given Rate: 0 Route: Intravenous; 11:15 AM 12/29/24 Lidocaine-epinephrine 1%-1:241993 injection Ordered and Given 3 mL Given Rate: 0 Route: Other; TOTAL FLUORO TIME: 0.4 minute OPERATORS: Marcos Turner M.D. (attending) and Hannah Kaur MD (resident) CONSENT: Following discussion of the risks, benefits and alternatives of the procedure, written informed consent was obtained. SEDATION: I performed Moderate Sedation which included the presence of a nurse that assisted in monitoring the patient's level of consciousness and physiologic status. After administration of sedative medication(s), I spent 15 minutes of continuous wngg-vr-eqkd time with the patient. TIME OUT: Prior to the procedure a time out was performed in the presence of the patient and all personnel involved in this case. The patient identity, procedure type, procedure side/site, and allergies were verified. TECHNIQUE: Position: The patient was transferred to the IR laboratory and was positioned supine on the procedural table. Venous Entry: Preliminary ultrasound demonstrated a patent right internal jugular vein and an image was saved in the imaging archive system. The appropriate area was prepped and draped using maximum sterile barrier technique. This consisted of cap, mask, hand hygiene, sterile gown and gloves, 2% Chlorhexidine solution or acceptable alternatives for cutaneous antisepsis and occlusive sterile draping of the field. Procedure: Local anesthesia was obtained using 2% lidocaine. Under direct ultrasound guidance the vein was accessed and a 5-Sri Lankan dilator was placed. An image was saved in the imaging archive system for documentation. Local anesthesia was given in the subcutaneous tissues extending from the neck incision to the upper thorax. A tunneled catheter was advanced through the subcutaneous tissues from the upper thorax to the neck incision. The dilator was exchanged over a wire for an introducer. The dilator and wire were removed from the introducer. The catheter was advanced through the introducer and was positioned under fluoroscopy with its tip in the right atrium. The introducer was removed, keeping the catheter in place. Immediately following placement, each of the ports aspirated and flushed without difficulty. The catheter was secured to the skin using 2-0 nylon suture. The neck incision was closed using Dermabond. A sterile, occlusive dressing was placed on the skin over the catheter entry site. DEVICE: Type: Tunneled Catheter: Single Lumen Powerline Length: Cut to measured length FINDINGS: The tip of the catheter was positioned in the right atrium. RADIOLOGY Marcos Turner MD - 12/29/2024 EXAM: IR INSERTION CVC TUNNELED, 12/29/2024 11:21 AM CLINICAL INDICATIONS: 59 year old male requiring central venous access for therapy. MEDICATIONS: 10:45 AM 12/29/24 fentaNYL (SUBLIMAZE) injection 0-300 mcg Ordered and Given 50 mcg Given Rate: 0 Route: Intravenous; 10:45 AM 12/29/24 Midazolam (VERSED) injection 0-10 mg Ordered and Given 1 mg Given Rate: 0 Route: Intravenous; 11:15 AM 12/29/24 Lidocaine-epinephrine 1%-1:559352 injection Ordered and Given 3 mL Given Rate: 0 Route: Other; TOTAL FLUORO TIME: 0.4 minute OPERATORS: Marcos Turner M.D. (attending) and Hannah Kaur MD (resident) CONSENT: Following discussion of the risks, benefits and alternatives of the procedure, written informed consent was obtained. SEDATION: I performed Moderate Sedation which included the presence of a nurse that assisted in monitoring the patient's level of consciousness and physiologic status. After administration of sedative medication(s), I spent 15 minutes of continuous ncwe-bh-wnif time with the patient. TIME OUT: Prior to the procedure a time out was performed in the presence of the patient and all personnel involved in this case. The patient identity, procedure type, procedure side/site, and allergies were verified. TECHNIQUE: Position: The patient was transferred to the IR laboratory and was positioned supine on the procedural table. Venous Entry: Preliminary ultrasound demonstrated a patent right internal jugular vein and an image was saved in the imaging archive system. The appropriate area was prepped and draped using maximum sterile barrier technique. This consisted of cap, mask, hand hygiene, sterile gown and gloves, 2% Chlorhexidine solution or acceptable alternatives for cutaneous antisepsis and occlusive sterile draping of the field. Procedure: Local anesthesia was obtained using 2% lidocaine. Under direct ultrasound guidance the vein was accessed and a 5-Sri Lankan dilator was placed. An image was saved in the imaging archive system for documentation. Local anesthesia was given in the subcutaneous tissues extending from the neck incision to the upper thorax. A tunneled catheter was advanced through the subcutaneous tissues from the upper thorax to the neck incision. The dilator was exchanged over a wire for an introducer. The dilator and wire were removed from the introducer. The catheter was advanced through the introducer and was positioned under fluoroscopy with its tip in the right atrium. The introducer was removed, keeping the catheter in place. Immediately following placement, each of the ports aspirated and flushed without difficulty. The catheter was secured to the skin using 2-0 nylon suture. The neck incision was closed using Dermabond. A sterile, occlusive dressing was placed on the skin over the catheter entry site. DEVICE: Type: Tunneled Catheter: Single Lumen Powerline Length: Cut to measured length FINDINGS: The tip of the catheter was positioned in the right atrium. IMPRESSION IMPRESSION: Successful placement of a right-sided tunneled powerline central venous catheter. Marcos Turner M.D. was in the room and participated during all [place] portions of this procedure. I personally viewed and interpreted these images and I have reviewed and approved this report. [facility] Radiology Study observation (narrative) [facility] MAGNESIUMon 12-29-2024 Magnesium [Mass/Vol] 1.9 mg/dL 1.6 - 2 .6 mg/dL [facility] Magnesium [Mass/Vol] 1.9 mg/dL Normal 1.6-2.6 [facility] Comment on above: Performed By: #### I PB, HFP, CHM7, MGO, CA ####[facility] (DEFAULT)[address] [place] [address] MANUAL DIFFon 12-29-2024 Band form neutrophils/100 WBC (Bld) 0.0 % [facility] Basophils (Bld) [#/Vol] 0.04 10*3/uL 0.00 - 0.09 K/uL [facility] Basophils/100 WBC (Bld) 1.7 % [facility] Nabila cells LM Ql (Bld) Present Abnormal (none) [facility] Differential cell count method Nom (Bld) Manual Differential [facility] Eosinophils (Bld) [#/Vol] 0.00 10*3/uL [facility] Eosinophils/100 WBC (Bld) 0.0 % [facility] Lymphocytes (Bld) [#/Vol] 0.93 10*3/uL 0.83 - 3.57 K/uL [facility] Lymphocytes/100 WBC (Bld) 37.9 % [facility] Monocytes (Bld) [#/Vol] 0.28 10*3/uL 0.24 - 0.93 K/uL [facility] Monocytes/100 WBC (Bld) 11.2 % [facility] Neutrophils (Bld) [#/Vol] 1.21 10*3/uL Low 1.57 - 6.19 K/uL [facility] Nucleated RBC/100 WBC (Bld) [Ratio] 1.0 % High [facility] Platelets Estimate (Bld) [#/Vol] Automated platelet count confirmed by manual slide review [facility] RBC morphology finding Nom (Bld) RBC INDICES CONFIRMED WITH MANUAL SLIDE REVIEW [facility] Segmented neutrophils/100 WBC (Bld) 49.2 % [facility] Target cells LM Ql (Bld) Present Abnormal (none) [facility] No Panel Informationon 12-29 Interpretation and review of laboratory results Abnormal [facility] Interpretation and review of laboratory results Abnormal [facility] Interpretation and review of laboratory results Normal [facility] PHOSPHATE, INORGANICon 12-29 Phosphate [Mass/Vol] 2.3 mg/dL 2.2 - 4 .6 mg/dL [facility] Phosphorous 2.3 mg/dL Normal 2.2-4.6 [facility] Comment on above: Performed By: #### I PB, HFP, CHM7, MGO, CA ####[facility] (DEFAULT)[address] [place] [address] PT,INR,PTTon 12-29-2024 aPTT Coag (PPP) [Time] 30.4 s [facility] INR Coag (Bld) [Relative time] 1.2 {INR} High 0.9 - 1.1 [facility] Interpretation and review of laboratory results Abnormal [facility] PT Coag (PPP) [Time] 15.7 s High [facility] aPTT Coag (Bld) [Time] 30.4 s Normal 24.0-34.3 [facility] Comment on above: Performed By: #### P TPTT ####[facility] (DEFAULT)[address] [place] [address] INR Coag (PPP) [Relative time] 1.2 {INR} High 0.9-1.1 [facility] Comment on above: Performed By: #### P TPTT ####[facility] (DEFAULT)[address] [place] [address] PT Coag (PPP) [Time] 15.7 s High 11.9-14.2 [facility] Comment on above: Performed By: #### P TPTT ####[facility] (DEFAULT)[address] [place] [address] TACROLIMUS LEVEL, TROUGH (PA E DRUG LEVEL)on 12-29-2024 Tacrolimus (Bld) [Mass/Vol] 6.9 ng/mL Bone Marrow Transplant: 5.0-15.0 Kidney/Pancre [facility] Transplant: 0 to 3 months: 8.0-10.0, 3 to 12 months: 6.0-8.0, >12 months: 4.0-6.0 [facility] Method performed is a chemiluminescent microparticle immunoasssay on the [employer] I. The range is based on experience at [facility] and users should be aware that target concentrations vary widely depending on concomitant therapy, time post-transplant, and desired degree of immunosuppression. [facility] Tacrolimus, Trough 6.9 ng/mL Normal Bone Veronique ow Transplant: 5.0-15.0 Kidney/Pancre [facility] Transplant: 0 to 3 months: 8.0-10.0, 3 to 12 months: 6.0-8.0, >12 months: 4.0-6.0 [facility] Comment on above: Order Comment: Pleas e draw at specified interval PRIOR to dose. Do not hold dose to wait for level. Specimens batched twice per day, (M-F) and once per day weekendsMethod performed is a chemiluminescent microparticle immunoasssay on the [employer] I.The range is based on experience at [facility] and users should be aware that target concentrations vary widely depending on concomitant therapy, time post-transplant, and desired degree of immunosuppression. Performed By: #### T ACRO ####[facility] (DEFAULT)[address] [place] [address] CBC,PLATELETSon 12-28-2024 Erythrocyte distribution width (RBC) [Ratio] 17.6 % High 10.9 - 14.3 % [facility] Hematocrit (Bld) [Volume fraction] 32.2 % Low 39.6 - 48.8 % [facility] Hemoglobin (Bld) [Mass/Vol] 10.4 g/dL Low 13.4 - 16.8 g/dL [facility] Interpretation and review of laboratory results Abnormal [facility] MCH (RBC) [Entitic mass] 27.8 pg 26.1 - 33.3 pg [facility] MCHC (RBC) [Mass/Vol] 32.3 g/dL 31.9 - 36.5 g/dL [facility] MCV (RBC) [Entitic vol] 86.1 fL 79.0 - 94.5 fL [facility] Platelet mean volume (Bld) [Entitic vol] 9.5 fL 8.7 - 12.3 fL [facility] Platelets (Bld) [#/Vol] 524 10*3/uL High 146 - 337 K/uL [facility] RBC (Bld) [#/Vol] 3.74 10*6/uL Low [facility] WBC (Bld) [#/Vol] 2.11 10*3/uL Low 3.73 - 10. 10 K/uL [facility] Hematocrit (Bld) [Volume fraction] 32.2 % Low 39.6-48.8 [facility] Comment on above: Performed By: #### E DIF2, HEMOGC ####[facility] (DEFAULT)[address] [place] [address] Hemoglobin (Bld) [Mass/Vol] 10.4 g/dL Low 13.4-16.8 [facility] Comment on above: Performed By: #### E DIF2, HEMOGC ####[facility] (DEFAULT)[address] [place] [address] MCV (RBC) [Entitic vol] 86.1 fL Normal 79.0-94.5 [facility] Comment on above: Performed By: #### E DIF2, HEMOGC ####[facility] (DEFAULT)[address] [place] [address] Mean Cell Hgb 27.8 pg Normal 26.1-33.3 [facility] Comment on above: Performed By: #### E DIF2, HEMOGC ####[facility] (DEFAULT)[address] [place] [address] Mean Cell Hgb Conc 32.3 g/dL Normal 31.9-36.5 [facility] Comment on above: Performed By: #### E DIF2, HEMOGC ####[facility] (DEFAULT)[address] [place] [address] Platelet mean volume (Bld) [Entitic vol] 9.5 fL Normal 8.7-12.3 [facility] Comment on above: Performed By: #### E DIF2, HEMOGC ####[facility] (DEFAULT)[address] [place] [address] Platelets (Bld) [#/Vol] 524 10*3/uL High 146-337 [facility] Comment on above: Performed By: #### E DIF2, HEMOGC ####[facility] (DEFAULT)[address] [place] [address] RBC (Bld) [#/Vol] 3.74 10*6/uL Low 4.38-5.83 [facility] Comment on above: Performed By: #### E DIF2, HEMOGC ####[facility] (DEFAULT)[address] [place] [address] RBC Distribution 17.6 % High 10.9-14.3 [facility] Comment on above: Performed By: #### E DIF2, HEMOGC ####[facility] (DEFAULT)[address] [place] [address] WBC (Bld) [#/Vol] 2.11 10*3/uL Low 3.73-10.10 [facility] Comment on above: Performed By: #### E DIF2, HEMOGC ####[facility] (DEFAULT)[address] [place] [address] CHEM 7 (LYTES,BUN,CREA,GLUC) on 12-28-2024 Anion gap [Moles/Vol] 12 mmol/L 7 - 17 mmol/L [facility] Chloride [Moles/Vol] 101 mmol/L 98 - 10 8 mmol/L [facility] CO2 [Moles/Vol] 24 mmol/L 21 - 31 mmol/L [facility] Creatinine [Mass/Vol] 1.00 mg/dL 0.70 - 1.30 mg/dL [facility] eGFR, CKD-EPI, Male 86 - PINF [facility] Comment on above: Reported eGFR is bas ed on the CKD-EPI 2020 equation using creatinine, age, and sex. Glucose [Mass/Vol] 100 mg/dL 70 - 179 mg/dL [facility] Osmolality Calc [Osmolality] 286 [facility] Potassium [Moles/Vol] 4.4 mmol/L 3.5 - 5.0 mmol/L [facility] Sodium [Moles/Vol] 133 mmol/L Low 135 - 145 mmol/L [facility] Urea nitrogen [Mass/Vol] 28 mg/dL High 7 - 25 mg/dL [facility] Urea nitrogen/Creatinine [Mass ratio] 28 mg/mg [facility] Anion gap [Moles/Vol] 12 mmol/L Normal 7-[address] Comment on above: Performed By: #### H FP, CHM7 ####[facility] (DEFAULT)[address] [place] [address] Chloride [Moles/Vol] 101 mmol/L Normal 98-108 [facility] Comment on above: Performed By: #### H ROMINA JOSEPH ####[facility] (DEFAULT)[address] [facility] [place] [address] CO2 [Moles/Vol] 24 mmol/L Normal 21-31 [facility] Comment on above: Performed By: #### H ROMINA JOSEPH ####[facility] (DEFAULT)[address] [place] [address] Creatinine [Mass/Vol] 1.00 mg/dL Normal 0.70-1.30 [facility] Comment on above: Performed By: #### ROMINA HUYNH ####[facility] (DEFAULT)[address] [place] [address] GFR/1.73 sq M.predicted among non-blacks MDRD (S/P/Bld) [Vol rate/Area] 86 mL/min/{1.73_m2} Normal >=60 [facility] Comment on above: Result Comment: Repo rted eGFR is based on the CKD-EPI 2020 equation using creatinine, age, and sex. Performed By: #### ROMINA HUYNH ####[facility] (DEFAULT)[address] [place] [address] Glucose [Mass/Vol] 100 mg/dL Normal Nonfastin -179 mg/dL; Fastin-99 [facility] Comment on above: Performed By: #### H SHERLEY JOSEPH7 ####[facility] (DEFAULT)[address] [place] [address] Osmolality [Osmolality] 286 mosm/kg Normal 278-305 [facility] Comment on above: Performed By: #### H SHERLEY JOSEPH7 ####[facility] (DEFAULT)[address] [facility] [place] [address] Potassium [Moles/Vol] 4.4 mmol/L Normal 3.5-5.0 [facility] Comment on above: Performed By: #### H FP, CHM7 ####[facility] (DEFAULT)[address] [facility] [place] [address] Sodium [Moles/Vol] 133 mmol/L Low 135-145 [facility] Comment on above: Performed By: #### H FP, CHM7 ####[facility] (DEFAULT)[address] [facility] [place] [address] Urea nitrogen [Mass/Vol] 28 mg/dL High 7-25 [facility] Comment on above: Performed By: #### H FP, CHM7 ####[facility] (DEFAULT)[address] [facility] [place] [address] Urea nitrogen/Creatinine [Mass ratio] 28 mg/mg Normal [facility] Comment on above: Performed By: #### H FP, CHM7 ####[facility] (DEFAULT)[address] [place] [address], [place] [address] CMV BY PCR, QUANTITATIVE, BL OODon 12-28-2024 CMV By PCR, IU/mL, Plasma <34.5 Normal <34.5 [facility] Comment on above: Order Comment: This test was performed using a real time PCR assay. The dynamic range for this assay is 34.5-10,000,000 IU/mL (1.54-7.00 Log IU/mL). Result Comment: CMV Not Detected Performed By: #### C MVPCR ####[facility] (DEFAULT)[address] [place] [address] CMV PCR Interpretation Not detected Normal Not Detected [facility] Comment on above: Order Comment: This test was performed using a real time PCR assay. The dynamic range for this assay is 34.5-10,000,000 IU/mL (1.54-7.00 Log IU/mL). Performed By: #### C MVPCR ####[facility] (DEFAULT)[address] [place] [address] CMV QUANTITATIVE BY PCR,(LOG IU/mL) < Normal <1.54 [facility] Comment on above: Order Comment: This test was performed using a real time PCR assay. The dynamic range for this assay is 34.5-10,000,000 IU/mL (1.54-7.00 Log IU/mL). Result Comment: CMV Not Detected Performed By: #### C MVPCR ####[facility] (DEFAULT)[address] [place] [address] DIAGNOSTIC UPPER ENDOSCOPYon 12-28-[address] [facility] Gastroenterology Patient Name: Jc Dunaway Procedure Date: 12/28/2024 9:29 AM Date of : 1965 Admit Type: Inpatient Age: 59 Room: [place] [address] Gender: Male Note Status: Finalized Attending MD: Johnnie Lester MD, [id number] Procedure: Upper GI endoscopy Indications: Odynophagia Providers: Johnnie Lester MD (Doctor), Nilson Larsen MD (Fellow), Loyda Hernandez RN (Nurse), Brant Mckenna RN (Nurse), Liss [employer] (Shipping And Receiving Weigher) Patient Profile: This is a 59 year old male. 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 Procedure: Pre-Anesthesia Assessment: - Prior to the procedure, a History and Physical was performed, and patient medications and allergies were reviewed. The patient's tolerance of previous anesthesia was also reviewed. The risks and benefits of the procedure and the sedation options and risks were discussed with the patient. All questions were answered, and informed consent was obtained. Prior Anticoagulants: The patient has taken no anticoagulant or antiplatelet agents. ASA Grade Assessment: III - A patient with severe systemic disease. After reviewing the risks and benefits, the patient was deemed in satisfactory condition to undergo the procedure. - Prior Aspirin/ NSAID therapy: The patient has taken no aspirin or NSAID medications. After obtaining informed consent, the endoscope was passed under direct vision. Throughout the procedure, the patient's blood pressure, pulse, and oxygen saturations were monitored continuously.The upper GI endoscopy was accomplished without difficulty. The patient tolerated the procedure well. The [id number] was introduced through the mouth, and advanced to the second part of duodenum. Findings: Diffuse, white plaques were found in the entire esophagus. Biopsies were taken with a cold forceps for histology. The exam of the esophagus was otherwise normal. There is no endoscopic evidence of stenosis or stricture in the entire esophagus. A 2 cm hiatal hernia was present. The entire examined stomach was normal. Biopsies were taken with a cold forceps for histology. Mucosal flattening was found in the second portion of the duodenum. Biopsies were taken with a cold forceps for histology. Impression: - Esophageal plaques were found, consistent with candidiasis. Biopsied. - 2 cm hiatal hernia. - Normal stomach. Biopsied for CMV, HSV, MMF. - Flattened mucosa was found in the second portion of duodenum. Biopsied bulb and second portion of duodenum for CMV, HSV, MMF. Recommendation: - [facility] to [facility] for [facility] care. - Resume previous diet. - Continue present medications. - Given endoscopic concern for naeem, recommend fluconazole 400 mg followed by 200 mg daily for 3 weeks (or eqivalent antifungal per primary team) - Await pathology results. - Patient has a contact number available for emergencies. The signs and symptoms of potential delayed complications were discussed with the patient. Return to normal activities tomorrow. Written discharge instructions were provided to the patient. - Rest of recommendations per GI team Procedure Code(s): --- Professional --- 51418, GC, Esophagogastroduodenoscop y, flexible, transoral; with biopsy, single or multiple Diagnosis Code(s): --- Professional --- K22.9, Disease of esophagus, unspecified K44 (more content not included)... LAB, [facility] EBV BY PCR, QUANTITATIVE,BLO ODon 12-28-2024 Ebv By Pcr, Quant, Blood <35 Normal <35 [facility] Comment on above: Order Comment: This test was performed using a real time PCR assay. The dynamic range for this assay is 35-100,000,000 IU/mL (1.54-8.00 Log IU/mL). Result Comment: EBV Not Detected Performed By: #### E BVPCR ####[facility] (DEFAULT)[address] [place] [address] EBV PCR Interpretation Not detected Normal Not Detected [facility] Comment on above: Order Comment: This test was performed using a real time PCR assay. The dynamic range for this assay is 35-100,000,000 IU/mL (1.54-8.00 Log IU/mL). Performed By: #### E BVPCR ####[facility] (DEFAULT)[address] [place] [address] EBV Viral Load By PCR,(Log) < Normal <1.54 [facility] Comment on above: Order Comment: This test was performed using a real time PCR assay. The dynamic range for this assay is 35-100,000,000 IU/mL (1.54-8.00 Log IU/mL). Result Comment: EBV Not Detected Performed By: #### E BVPCR ####[facility] (DEFAULT)[address] [place] [address] ELECTRONIC DIFFon 12-28-2024 Basophils (Bld) [#/Vol] [facility] Basophils/100 WBC (Bld) [facility] Eosinophils (Bld) [#/Vol] [facility] Eosinophils/100 WBC (Bld) [facility] Immature granulocytes (Bld) [#/Vol] [facility] Immature granulocytes/100 WBC (Bld) [facility] Lymphocytes (Bld) [#/Vol] [facility] Lymphocytes/100 WBC (Bld) [facility] Monocytes (Bld) [#/Vol] [facility] Monocytes/100 WBC (Bld) [facility] Neutrophils/100 WBC (Bld) [facility] Nucleated RBC/100 WBC (Bld) [Ratio] [facility] Segmented neutrophils/100 WBC (Bld) [facility] Abs Baso Auto Normal [facility] Comment on above: Performed By: #### E DIF2, HEMOGC ####[facility] (DEFAULT)[address] [place] [address] Abs Eos Auto Normal [facility] Comment on above: Performed By: #### E DIF2, HEMOGC ####[facility] (DEFAULT)[address] [place] [address] Abs Lymph Auto Normal [facility] Comment on above: Performed By: #### E DIF2, HEMOGC ####[facility] (DEFAULT)[address] [place] [address] Abs Tama Auto Normal [facility] Comment on above: Performed By: #### E DIF2, HEMOGC ####[facility] (DEFAULT)[address] [facility] [place] [address] Basophil % Auto Normal [facility] Comment on above: Performed By: #### E DIF2, HEMOGC ####[facility] (DEFAULT)[address] [facility] [place] [address] Eosinophil % Auto Normal [facility] Comment on above: Performed By: #### E DIF2, HEMOGC ####[facility] (DEFAULT)[address] [facility] [place] [address] Immature Grans % Normal [facility] Comment on above: Performed By: #### E DIF2, HEMOGC ####[facility] (DEFAULT)[address] [facility] [place] [address] Immature Grans Absolute Normal [facility] Comment on above: Performed By: #### E DIF2, HEMOGC ####[facility] (DEFAULT)[address] [facility] [place] [address] Lymphocyte % Auto Normal [facility] Comment on above: Performed By: #### E DIF2, HEMOGC ####[facility] (DEFAULT)[address] [facility] [place] [address] Monocyte % Auto Normal [facility] Comment on above: Performed By: #### E DIF2, HEMOGC ####[facility] (DEFAULT)[address] [facility] [place] [address] Nucleated RBC Normal [facility] Comment on above: Performed By: #### E DIF2, HEMOGC ####[facility] (DEFAULT)[address] [facility] [place] [address] Segs + Bands Auto Normal [facility] Comment on above: Performed By: #### E DIF2, HEMOGC ####[facility] (DEFAULT)[address] [place] [address] Segs + Bands,Absolute Auto Normal [facility] Comment on above: Performed By: #### E DIF2, HEMOGC ####[facility] (DEFAULT)[address] [place] [address] HEPATIC FUNCTION PANELon Albumin [Mass/Vol] 3.1 g/dL Low 3.5 - 5.0 g/dL [facility] ALP [Catalytic activity/Vol] 683 U/L High 32 - 126 U/L [facility] ALT [Catalytic activity/Vol] 5 U/L Low 10 - 52 U/L [facility] AST [Catalytic activity/Vol] 12 U/L 10 - 39 U/L [facility] Bilirubin [Mass/Vol] 0.4 mg/dL [facility]F - 1.5 mg/dL [facility] Bilirubin.direct [Mass/Vol] 0.1 mg/dL NINF - 0.3 mg/dL [facility] Protein [Mass/Vol] 5.9 g/dL Low 6.4 - 8.3 g/dL [facility] Albumin [Mass/Vol] 3.1 g/dL Low 3.5-5.0 [facility] Comment on above: Performed By: #### H FP, CHM7 ####[facility] (DEFAULT)[address] [place] [address] ALP [Catalytic activity/Vol] 683 U/L High 32-126 [facility] Comment on above: Performed By: #### Gurjit JOSEPH, CHMalinda7 ####[facility] (DEFAULT)[address] [place] [address] ALT [Catalytic activity/Vol] 5 U/L Low 10-52 [facility] Comment on above: Performed By: #### Gurjit JOSEPH, YISSELM7 ####[facility] (DEFAULT)[address] [place] [address] AST [Catalytic activity/Vol] 12 U/L Normal 10-39 [facility] Comment on above: Performed By: #### Gurjit JOSEPH, CHMalinda7 ####[facility] (DEFAULT)[address] [place] [address] Bilirubin [Mass/Vol] 0.4 mg/dL Normal <1.5 [facility] Comment on above: Performed By: #### Gurjit JOSEPH, CHM7 ####[facility] (DEFAULT)[address] [place] [address] Bilirubin.indirect [Mass/Vol] 0.1 mg/dL Normal <0.3 [facility] Comment on above: Performed By: #### Gurjit JOSEPH, CHM7 ####[facility] (DEFAULT)[address] [facility] [place] [place] [address] Protein [Mass/Vol] 5.9 g/dL Low 6.4-8.3 [facility] Comment on above: Performed By: #### H JAKE, CHM7 ####[facility] (DEFAULT)[address] [facility] [place] [address] MANUAL DIFFon 12-28-2024 Band form neutrophils/100 WBC (Bld) 0.0 % [facility] Basophils (Bld) [#/Vol] 0.00 10*3/uL 0.00 - 0.09 K/uL [facility] Basophils/100 WBC (Bld) 0.0 % [facility] [place] cells LM Ql (Bld) Present Abnormal (none) [facility] Differential cell count method Nom (Bld) Manual Differential [facility] Eosinophils (Bld) [#/Vol] 0.02 10*3/uL [facility] Eosinophils/100 WBC (Bld) 0.8 % [facility] Interpretation and review of laboratory results Abnormal [facility] Lymphocytes (Bld) [#/Vol] 0.43 10*3/uL Low 0.83 - 3.57 K/uL [facility] Lymphocytes/100 WBC (Bld) 20.5 % [facility] Monocytes (Bld) [#/Vol] 0.55 10*3/uL 0.24 - 0.93 K/uL [facility] Monocytes/100 WBC (Bld) 26.0 % [facility] Neutrophils (Bld) [#/Vol] 1.11 10*3/uL Low 1.57 - 6.19 K/uL [facility] Nucleated RBC/100 WBC (Bld) [Ratio] 1.0 % High [facility] Platelets Estimate (Bld) [#/Vol] Automated platelet count confirmed by manual slide review [facility] RBC morphology finding Nom (Bld) RBC INDICES CONFIRMED WITH MANUAL SLIDE REVIEW [facility] Segmented neutrophils/100 WBC (Bld) 52.7 % [facility] Comment on above: Dohle bodies present [facility] No Panel Informationon 12-28 Radiology Study observation (narrative) [facility] Interpretation and review of laboratory results Abnormal [facility] POUCHOSCOPYon 12-28-[address] [facility] Gastroenterology Patient Name: Jc Dunaway Procedure Date: 12/28/2024 9:44 AM Date of : 1965 Admit Type: Inpatient Age: 59 Room: [place] [address] Gender: Male Note Status: Finalized Attending MD: Miroslava Joiner MD, [id number] Procedure: Pouchoscopy Indications: Follow-up of chronic ulcerative proctitis Providers: Miroslava Joiner MD (Doctor), Loyda Hernandez RN (Nurse), Brant Mckenna RN (Nurse), Liss Boo, Shipping And Receiving Weigher (Shipping And Receiving Weigher) Referring MD: Babs Marley MD (Referring MD) Medicines: Monitored Anesthesia Care Complications: No immediate complications. Procedure: Pre-Anesthesia Assessment: - Prior to the procedure, a History and Physical was performed, and patient medications and allergies were reviewed. The patient is competent. The risks and benefits of the procedure and the sedation options and risks were discussed with the patient. All questions were answered and informed consent was obtained. Patient identification and proposed procedure were verified by the physician, the nurse and the fur dry cleaner hand in the procedure room at 09:45. Mental Status Examination: alert and oriented. Airway Examination: Mallampati Class II (the uvula but not tonsillar pillars visualized). Respiratory Examination: clear to auscultation. CV Examination: normal. Prophylactic Antibiotics: The patient does not require prophylactic antibiotics. Prior Anticoagulants: The patient has taken no anticoagulant or antiplatelet agents. ASA Grade Assessment: III - A patient with severe systemic disease. After reviewing the risks and benefits, the patient was deemed in satisfactory condition to undergo the procedure. The anesthesia plan was to use monitored anesthesia care (MAC). Immediately prior to administration of medications, the patient was re-assessed for adequacy to receive sedatives. The heart rate, respiratory rate, oxygen saturations, blood pressure, adequacy of pulmonary ventilation, and response to care were monitored throughout the procedure. The physical status of the patient was re-assessed after the procedure. - Abdominal Examination: abdomen soft. - The physical status of the patient was re-assessed after the procedure. After obtaining informed consent, the endoscope was passed under direct vision. Throughout the procedure, the patient's blood pressure, pulse, and oxygen saturations were monitored continuously. The GIF-[id number] was introduced through the ileoanal anastomosis via the anus and advanced to the ileoanal pouch and into the hawa-terminal ileum. The procedure was performed without difficulty. The patient tolerated the procedure well. The quality of the bowel preparation was adequate. Findings: The hawa-terminal ileum appeared normal. The j-pouch appeared normal. The rectal cuff appeared normal. Biopsies were taken with a cold forceps for histology. Estimated blood loss was minimal. The anus contained multiple ulcers. No bleeding was present. The exam was otherwise without abnormality. Impression: - The examined portion of the ileum was normal. - The j-pouch is normal. - The rectal cuff is normal. Biopsied. - Multiple ulcers at the anus. - The examination was otherwise normal. Recommendation: - Patient has a contact number available for emergencies. The signs and symptoms of potential delayed complications were discussed with the patient. Return to normal activities tomorrow. Written discharge instructions were provided to the patient. - Return patient to [facility] (more content not included)... LAB, [facility] Q FEVER ANTIBODYon Q FEVER ANTIBODY Reactive Normal Negative [facility] Comment on above: Result Comment: Not diagnostic. Sample reflexed to IFAto determine Q Fever (Coxiella burnetii)phase I and phase II IgM and IgG titers. ADDITIONAL INFORMATION This test was developed and its performance characteristicsdetermined by [facility] in a manner consistent withCLIA requirements. This test has not been cleared orapproved by the U.S. Food and Drug Administration.Test Performed by:[address] Director: Orlando Cruz Ph.D.; CLIA# [id number] Performed By: #### L ABYQFEVT, YQFEV ####[facility] (DEFAULT)[address] [place] [address] Q FEVER IGM/IGG, TITER, Son 12-28-2024 Q FEVER IGM <1:16 Normal <1:16 [facility] Comment on above: Performed By: #### L ABYQFEVT, YQFEV ####[facility] (DEFAULT)[address] [place] [address] Q FEVER INTERPRETATION SEE COMMENTS Normal [facility] Comment on above: Result Comment: Acti ve Q Fever infections are characterized by a fourfoldincrease in serum IgG between acute and convalescentsamples and/or the presence of IgM antibodies directedagainst phase II organisms. In chronic Q Fever the IgGand/or IgM response is most often directed against phase Iorganisms, resulting in phase I titers that are greaterthan phase II titers.Test Performed by:[facility] [place], [place] [address]Fca Director: Orlando Cruz Ph.D.; CLIA# [id number] Performed By: #### L ABYQFEVT, YQFEV ####[facility] (DEFAULT)[address] [facility] [place] [place] [address] Q FEVER PHASE II AB, IGG 1:64 Abnormal <1:16 [facility] Comment on above: Performed By: #### L ABYQFEVT, YQFEV ####[facility] (DEFAULT)[address] [facility] [place] [place] [address] Q FEVER PHASE II AB, IGM <1:16 Normal <1:16 [facility] Comment on above: Performed By: #### L ABYQFEVT, YQFEV ####[facility] (DEFAULT)[address] [facility] [place] [address] Q-Fever Phase I IgG Titer <1:16 Normal <1:16 [facility] Comment on above: Performed By: #### L ABYQFEVT, YQFEV ####[facility] (DEFAULT)[address] [place] [address] SCREEN, VREOrdered By: Sultana Garcia on 12-28-2024 Interpretation and review of laboratory results Normal [facility] Vancomycin Resistant Enterococcus Negative Negative [facility] SURG PATH REQUESTon 12-29-19 Case Report Normal [facility] Comment on above: Result Comment: Surg ical Pathology Report Case: [id number] Provider: Johnnie Lester MD Collected: 12/28/2024 09:35 AMOrdering Location: [facility] Received: 12/28/2024 10:49 AMPathologist: Alexander Chinchilla MD, PhDSpecimens: A) - DUODENUM, R/o CMV HSV mycophenalate B) - DUODENUM, 2nd portion R/o CMV HSV mycophenalate C) - STOMACH, r/o CMV HSV Mycophenalate D) - ESOPHAGUS, R/O candidia HSV CMV E) - COLON TISSUE OR BIOPSY, rectal cuff r/o colitis dysplasia Performed By: #### S URGP ####[facility] (DEFAULT)[address] [place] [address] Clinical History Normal [facility] Comment on above: Performed By: #### S URGP ####[facility] (DEFAULT)[address] [place] [address] Gross Description Normal [facility] Comment on above: Result Comment: The specimens are received in five properly labeled containers with the patient's name and accession number.A. The specimen is designated r/o CMV HSV mycophenolate and consists of three fragments of swanson-pink soft tissue, from 0.3 cm up to 0.4 cm in greatest dimension. TE 1B. The specimen is designated 2nd portion r/o CMV HSV mycophenolate and consists of two fragments of swanson-pink soft tissue, up to 0.3 cm in greatest dimension. TE 1C. The specimen is designated r/o CMV HSV mycophenolate and consists of four fragments of swanson-pink soft tissue, from 0.2 cm up to 0.4 cm in greatest dimension. TE 1D. The specimen is designated r/o Naeem HSV CMV and consists of four fragments of swanson-pink soft tissue, from 0.3 cm up to 0.4 cm in greatest dimension. TE 1E. The specimen is designated rectal cuff r/o colitis dysplasia and consists of three fragments of swanson-pink soft tissue, from 0.3 cm up to 0.3 cm in greatest dimension. TE 1Lab Use Only: JobID [id number] for this case was: Shanon Fletcher Performed By: #### S URGP ####[facility] (DEFAULT)[address] [place] [address] Microscopic Description Normal [facility] Comment on above: Result Comment: A mi croscopic examination was performed.All controls show appropriate reactivity. All immunohistochemistry (IHC), in situ hybridization (MELA), and histochemical tests were developed by and are performed at the [facility] Clinical Laboratory, Histology and IHC Lab, [address] [place] [address]. All Immunofluorescent (IF) tests were developed by and are performed at the [facility], Renal Division, [address] [place] [address]. All tests reported here, except for PD-L1, have not been cleared by or approved by the US Food and Drug Administration (FDA). The laboratory is regulated under CLIA as qualified to perform high-complexity testing. The tests are used for clinical purposes. They should not be regarded as investigational or for research. Performed By: #### S URGP ####[facility] (DEFAULT)[address] [place] [address] Pathologic Diagnosis [facility] Comment on above: Result Comment: A. D uodenum, biopsy:No significant pathologic changeB. Duodenum, second portion, biopsy:No significant pathologic changeC. Stomach, biopsy:Mild chronic inactive gastritisNo Helicobacter on H&E-stained sectionsD. Esophagus, biopsy:Naeem esophagitis (PASD stain)Negative CMV, Adenovirus, and HSV 1&2 immunostainsE. 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 [id number] [place] [address] Performed By: #### S URGP ####[facility] (DEFAULT)[address] [place] [address] TACROLIMUS LEVEL, TROUGH (PA E DRUG LEVEL)on 12-28-2024 Tacrolimus (Bld) [Mass/Vol] 13.6 ng/mL Bone Marrow Transplant: 5.0-15.0 Kidney/Pancre atic Transplant: 0 to 3 months: 8.0-10.0, 3 to 12 months: 6.0-8.0, >12 months: 4.0-6.0 [facility] Method performed is a chemiluminescent microparticle immunoasssay on the [employer] I. The range is based on experience at [facility] and users should be aware that target concentrations vary widely depending on concomitant therapy, time post-transplant, and desired degree of immunosuppression. [facility] Tacrolimus, Trough 13.6 ng/mL Normal Bone Veronique ow Transplant: 5.0-15.0 Kidney/Pancre at Transplant: 0 to 3 months: 8.0-10.0, 3 to 12 months: 6.0-8.0, >12 months: 4.0-6.0 [facility] Comment on above: Order Comment: Pleas e draw at specified interval PRIOR to dose. Do not hold dose to wait for level. Specimens batched twice per day, (M-) and once per day weekendsMethod performed is a chemiluminescent microparticle immunoasssay on the [employer] I.The range is based on experience at [facility] and users should be aware that target concentrations vary widely depending on concomitant therapy, time post-transplant, and desired degree of immunosuppression. Performed By: #### T ACRO ####[facility] (DEFAULT)[address] [place] [address] CBC,PLATELETSon 12-27-2024 Erythrocyte distribution width (RBC) [Ratio] 17.2 % High 10.9 - 14.3 % [facility] Hematocrit (Bld) [Volume fraction] 29.1 % Low 39.6 - 48.8 % [facility] Hemoglobin (Bld) [Mass/Vol] 9.4 g/dL Low 13.4 - 16.8 g/dL [facility] Interpretation and review of laboratory results Abnormal [facility] MCH (RBC) [Entitic mass] 27.5 pg 26.1 - 33.3 pg [facility] MCHC (RBC) [Mass/Vol] 32.3 g/dL 31.9 - 36.5 g/dL [facility] MCV (RBC) [Entitic vol] 85.1 fL 79.0 - 94.5 fL [facility] Platelet mean volume (Bld) [Entitic vol] 9.7 fL 8.7 - 12.3 fL [facility] Platelets (Bld) [#/Vol] 484 10*3/uL High 146 - 337 K/uL [facility] RBC (Bld) [#/Vol] 3.42 10*6/uL Low [facility] WBC (Bld) [#/Vol] 1.95 10*3/uL Low 3.73 - 10. 10 K/uL [facility] Hematocrit (Bld) [Volume fraction] 29.1 % Low 39.6-48.8 [facility] Comment on above: Performed By: #### E DIF2, HEMOGC ####[facility] (DEFAULT)[address] [place] [id number] Hemoglobin (Bld) [Mass/Vol] 9.4 g/dL Low 13.4-16.8 [facility] Comment on above: Performed By: #### E DIF2, HEMOGC ####[facility] (DEFAULT)[address] [place] [address] MCV (RBC) [Entitic vol] 85.1 fL Normal 79.0-94.5 [facility] Comment on above: Performed By: #### E DIF2, HEMOGC ####[facility] (DEFAULT)[address] [place] [address] 19556 Mean Cell Hgb 27.5 pg Normal 26.1-33.3 [facility] [facility] Comment on above: Performed By: #### E DIF2, HEMOGC ####[facility] (DEFAULT)[address] [place] [address] Mean Cell Hgb Conc 32.3 g/dL Normal 31.9-36.5 [facility] Comment on above: Performed By: #### E DIF2, HEMOGC ####[facility] (DEFAULT)[address] [facility] [place] [address] Platelet mean volume (Bld) [Entitic vol] 9.7 fL Normal 8.7-12.3 [facility] Comment on above: Performed By: #### E DIF2, HEMOGC ####[facility] (DEFAULT)[address] [facility] [place] [address] Platelets (Bld) [#/Vol] 484 10*3/uL High 146-337 [facility] Comment on above: Performed By: #### E DIF2, HEMOGC ####[facility] (DEFAULT)[address] [place] [address] RBC (Bld) [#/Vol] 3.42 10*6/uL Low 4.38-5.83 [facility] Comment on above: Performed By: #### Skyler DIF2, HEMOGC ####[facility] (DEFAULT)[address] [place] [address] RBC Distribution 17.2 % High 10.9-14.3 [facility] Comment on above: Performed By: #### Skyler DIF2, HEMOGC ####[facility] (DEFAULT)[address] [place] [address] WBC (Bld) [#/Vol] 1.95 10*3/uL Low 3.73-10.10 [facility] Comment on above: Performed By: #### E DIF2, HEMOGC ####[facility] (DEFAULT)[address] [place] [address] CHEM 7 (LYTES,BUN,CREA,GLUC) on 12-27-2024 Anion gap [Moles/Vol] 12 mmol/L 7 - 17 mmol/L [facility] Chloride [Moles/Vol] 103 mmol/L 98 - 10 8 mmol/L [facility] CO2 [Moles/Vol] 25 mmol/L 21 - 31 mmol/L [facility] Creatinine [Mass/Vol] 1.04 mg/dL 0.70 - 1.30 mg/dL [facility] eGFR, CKD-EPI, Male 82 - PINF [facility] Comment on above: Reported eGFR is bas ed on the CKD-EPI 2020 equation using creatinine, age, and sex. Glucose [Mass/Vol] 89 mg/dL 70 - 179 mg/dL [facility] Osmolality Calc [Osmolality] 289 [facility] Potassium [Moles/Vol] 4.3 mmol/L 3.5 - 5.0 mmol/L [facility] Sodium [Moles/Vol] 136 mmol/L 135 - 145 mmol/L [facility] Urea nitrogen [Mass/Vol] 23 mg/dL 7 - 25 mg/dL [facility] Urea nitrogen/Creatinine [Mass ratio] 22 mg/mg [facility] Anion gap [Moles/Vol] 12 mmol/L Normal 7-17 [facility] Comment on above: Performed By: #### T SHQADONIS Sin, CHM7 ####[facility] (DEFAULT)[address] [place] [address] Chloride [Moles/Vol] 103 mmol/L Normal 98-108 [facility] Comment on above: Performed By: #### T SHQR, HFP, CHM7 ####[facility] (DEFAULT)[address] [place] [address] CO2 [Moles/Vol] 25 mmol/L Normal 21-31 [facility] Comment on above: Performed By: #### T SHQR, HFP, CHM7 ####[facility] (DEFAULT)[address] [place] [address] Creatinine [Mass/Vol] 1.04 mg/dL Normal 0.70-1.30 [facility] Comment on above: Performed By: #### T SHQR, HFP, CHM7 ####[facility] (DEFAULT)[address] [place] [address] GFR/1.73 sq M.predicted among non-blacks MDRD (S/P/Bld) [Vol rate/Area] 82 mL/min/{1.73_m2} Normal >=60 [facility] Comment on above: Result Comment: Repo rted eGFR is based on the CKD-EPI 2020 equation using creatinine, age, and sex. Performed By: #### T SHQRADONIS, CHM7 ####[facility] (DEFAULT)[address] [place] [address] Glucose [Mass/Vol] 89 mg/dL Normal Nonfastin -179 mg/dL; Fastin-99 [facility] Comment on above: Performed By: #### T ADONIS HOLLY, CHM7 ####[facility] (DEFAULT)[address] [place] [address] Osmolality [Osmolality] 289 mosm/kg Normal 278-305 [facility] Comment on above: Performed By: #### T SHTremaineRADONIS, CHM7 ####[facility] (DEFAULT)[address] [place] [address] Potassium [Moles/Vol] 4.3 mmol/L Normal 3.5-5.0 [facility] Comment on above: Performed By: #### T SHTremaineRADONIS, CHM7 ####[facility] (DEFAULT)[address] [place] [address] Sodium [Moles/Vol] 136 mmol/L Normal 135-145 [facility] Comment on above: Performed By: #### T SHQR, ADONIS, CHM7 ####[facility] (DEFAULT)[address] [place] [address] Urea nitrogen [Mass/Vol] 23 mg/dL Normal 7-25 [facility] Comment on above: Performed By: #### T SHQR, ADONIS, CHM7 ####[facility] (DEFAULT)[address] [place] [address] Urea nitrogen/Creatinine [Mass ratio] 22 mg/mg Normal [facility] Comment on above: Performed By: #### T SHQR, HFP, CHM7 ####[facility] (DEFAULT)[address] [place] [address] ELECTRONIC DIFFon 12-27-2024 Basophils (Bld) [#/Vol] [facility]/100 WBC (Bld) [facility] Eosinophils (Bld) [#/Vol] [facility] Eosinophils/100 WBC (Bld) [facility] Immature granulocytes (Bld) [#/Vol] [facility] Immature granulocytes/100 WBC (Bld) [facility] Lymphocytes (Bld) [#/Vol] [facility] Lymphocytes/100 WBC (Bld) [facility] Monocytes (Bld) [#/Vol] [facility] Monocytes/100 WBC (Bld) [facility] Neutrophils/100 WBC (Bld) [facility] Nucleated RBC/100 WBC (Bld) [Ratio] [facility] Segmented neutrophils/100 WBC (Bld) [facility] Abs Baso Auto Normal [facility] Comment on above: Performed By: #### E DIF2, HEMOGC ####[facility] (DEFAULT)[address] [place] [address] Abs Eos Auto Normal [facility] Comment on above: Performed By: #### E DIF2, HEMOGC ####[facility] (DEFAULT)[address] [place] [address] Abs Lymph Auto Normal [facility] Comment on above: Performed By: #### E DIF2, HEMOGC ####[facility] (DEFAULT)[address] [place] [address] Abs Tama Auto Normal [facility] Comment on above: Performed By: #### E DIF2, HEMOGC ####[facility] (DEFAULT)[address] [place] [address] Basophil % Auto Normal [facility] Comment on above: Performed By: #### E DIF2, HEMOGC ####[facility] (DEFAULT)[address] [place] [address] Eosinophil % Auto Normal [facility] Comment on above: Performed By: #### E DIF2, HEMOGC ####[facility] (DEFAULT)[address] [place] [address] Immature Grans % Normal [facility] Comment on above: Performed By: #### E DIF2, HEMOGC ####[facility] (DEFAULT)[address] [place] [address] Immature Grans Absolute Normal [facility] Comment on above: Performed By: #### E DIF2, HEMOGC ####[facility] (DEFAULT)[address] [facility] [place] [address] Lymphocyte % Auto Normal [facility] Comment on above: Performed By: #### E DIF2, HEMOGC ####[facility] (DEFAULT)[address] [facility] [place] [address] Monocyte % Auto Normal [facility] Comment on above: Performed By: #### E DIF2, HEMOGC ####[facility] (DEFAULT)[address] [place] [address] Nucleated RBC Normal [facility] Comment on above: Performed By: #### E DIF2, HEMOGC ####[facility] (DEFAULT)[address] [facility] [place] [address] Segs + Bands Auto Normal [facility] Comment on above: Performed By: #### E DIF2, HEMOGC ####[facility] (DEFAULT)[address] [facility] [place] [place] [address] Segs + Bands,Absolute Auto Normal [facility] Comment on above: Performed By: #### E DIF2, HEMOGC ####[facility] (DEFAULT)[address] [place] [address] EXTRA MICROon 12-27-2024 [facility] HEPATIC FUNCTION PANELon Albumin [Mass/Vol] 3.0 g/dL Low 3.5 - 5.0 g/dL [facility] ALP [Catalytic activity/Vol] 667 U/L High 32 - 126 U/L [facility] ALT [Catalytic activity/Vol] 8 U/L Low 10 - 52 U/L [facility] AST [Catalytic activity/Vol] 11 U/L 10 - 39 U/L [facility] Bilirubin [Mass/Vol] 1.0 mg/dL NINF - 1.5 mg/dL [facility] Bilirubin.direct [Mass/Vol] 0.3 mg/dL High NINF - 0.3 mg/dL [facility] Interpretation and review of laboratory results Abnormal [facility] Protein [Mass/Vol] 5.8 g/dL Low 6.4 - 8.3 g/dL [facility] Albumin [Mass/Vol] 3.0 g/dL Low 3.5-5.0 [facility] Comment on above: Performed By: #### T SHQR, HFP, CHM7 ####[facility] (DEFAULT)[address] [place] [address] ALP [Catalytic activity/Vol] 667 U/L High 32-126 [facility] Comment on above: Performed By: #### T SHQR, HFP, CHM7 ####[facility] (DEFAULT)[address] [place] [address] ALT [Catalytic activity/Vol] 8 U/L Low 10-52 [facility] Comment on above: Performed By: #### T SHQR, HFP, CHM7 ####[facility] (DEFAULT)[address] [place] [address] AST [Catalytic activity/Vol] 11 U/L Normal 10-39 [facility] Comment on above: Performed By: #### T ADONIS HOLLY, CHM7 ####[facility] (DEFAULT)[address] [place] [address] Bilirubin [Mass/Vol] 1.0 mg/dL Normal <1.5 [facility] Comment on above: Performed By: #### T ADONIS HOLLY, CHM7 ####[facility] (DEFAULT)[address] [place] [address] Bilirubin.indirect [Mass/Vol] 0.3 mg/dL High <0.3 [facility] Comment on above: Performed By: #### T ADONIS HOLLY, CHM7 ####[facility] (DEFAULT)[address] [place] [address] Protein [Mass/Vol] 5.8 g/dL Low 6.4-8.3 [facility] Comment on above: Performed By: #### T ADONIS HOLLY, CHM7 ####[facility] (DEFAULT)[address] [place] [address] MANUAL DIFFon 12-27-2024 Band form neutrophils/100 WBC (Bld) 0.0 % [facility] Basophils (Bld) [#/Vol] 0.02 10*3/uL 0.00 - 0.09 K/uL [facility] Basophils/100 WBC (Bld) 0.8 % [facility] [place] cells LM Ql (Bld) Present Abnormal (none) [facility] Differential cell count method Nom (Bld) Manual Differential [facility] Eosinophils (Bld) [#/Vol] 0.00 10*3/uL [facility] Eosinophils/100 WBC (Bld) 0.0 % [facility] Interpretation and review of laboratory results Abnormal [facility] Lymphocytes (Bld) [#/Vol] 0.45 10*3/uL Low 0.83 - 3.57 K/uL [facility] Lymphocytes/100 WBC (Bld) 23.3 % [facility] Monocytes (Bld) [#/Vol] 0.58 10*3/uL 0.24 - 0.93 K/uL [facility] Monocytes/100 WBC (Bld) 29.5 % [facility] Neutrophils (Bld) [#/Vol] 0.90 10*3/uL Low 1.57 - 6.19 K/uL [facility] Ovalocytes LM Ql (Bld) Present Abnormal (none) [facility] Platelet clump LM Ql (Bld) Present Abnormal (none) [facility] Platelets Estimate (Bld) [#/Vol] Automated platelet count confirmed by manual slide review [facility] RBC morphology finding Nom (Bld) RBC INDICES CONFIRMED WITH MANUAL SLIDE REVIEW [facility] Segmented neutrophils/100 WBC (Bld) 46.4 % [facility] No Panel Informationon 12-27 [facility] ABO/RH(D) TYPE Positive [facility] BLOOD COMPONENT TYPE Red Cells, Leukoreduced [facility] EXPIRATION DATE [facility] Product ABO/RH(D) Negative [facility] Product ABO/RH(D) NUMBER [id number] [facility] Unit Compatibility Compatibile [facility] UNIT STATUS transfused [facility] No Panel InformationOrdered By: System Discharge on 12-27-2024 [facility] PREPARE TO TRANSFUSE RED BLO OD CELLSon 12-27-2024 PRODUCT CODE [id number] [facility] PRODUCT CODE [id number] [facility] UNIT NUMBER [id number] [facility] UNIT NUMBER [id number] [facility] TRANSFUSE RED BLOOD CELLSOrd ered By: Genesis Smith on 12-27-2024 [facility] TSH W/FT4 REFLEXon 10-28-202 5 Interpretation and review of laboratory results Normal [facility] TSH Qn 1.264 m[IU]/L [facility] TSH 1.264 uIU/mL Normal 0.550-4.780 [facility] Comment on above: Performed By: #### T SHQR, ADONIS, CHM7 ####[facility] (DEFAULT)[address] [place] [address] US ABDOMEN LIVER TRANSPLANT DOPPLERon 12-27-2024 US ABDOMEN LIVER TRANSPLANT DOPPLER Normal [facility] US.doppler Abdominal vessels on 12-27-2024 IMPRESSION: 1. Marked scattered pneumobilia. Correlation with dedicated CT of the abdomen and pelvis is recommended. 2. Patent transplant vasculature. OLOGY EXAM: US ABDOMEN KAM ER TRANSPLANT DOPPLER, 12/27/2024 19:08 PM CLINICAL INDICATIONS: ALP significantly elevated, eval liver transplant vasculature COMPARISON: US ABDOMEN LIVER TRANSPLANT DOPPLER May 30, 2024 TECHNIQUE: Multiple longitudinal and transverse real-time armijo scale survey images of the liver were obtained. The portal veins, hepatic arteries, hepatic veins, splenic vein, and inferior vena cava were evaluated using color flow Doppler and spectral waveform analysis. FINDINGS: Portal Vein: Preanastomosis: Caliber- 1 cm; Velocity- 32 cm/s Anastomosis: Caliber- 0.8 cm; Velocity- 37 cm/s Post anastomosis: Caliber- 1.1 cm; Velocity- 36 cm/s. Previously- Preanastomosis: Caliber- 1.1 cm; Velocity-36 cm/s Anastomosis: Caliber- 1.0 cm; Velocity-48 cm/s Post anastomosis: Caliber- 1.3 cm; Velocity-40 cm/s. Hepatic Arteries: Main, left and right hepatic arteries have normal spectral waveforms. The resistive index of the main hepatic artery measures 0.5, (previously measuring 0.72). The systolic acceleration time is 40 ms, previously 44 ms. Hepatic Veins: Right, middle and left hepatic veins have normal spectral waveforms and flow direction. Inferior Vena Cava: The inferior vena cava is unremarkable. Splenic Vein: The splenic vein is not well seen Liver: The liver parenchyma is homogenous in echotexture. No intrahepatic mass. Echogenic periphery of the vessels which may be secondary to pneumobilia. RADIOLOGY Uriel John DO - 12/27/2024 EXAM: US ABDOMEN LIVER TRANSPLANT DOPPLER, 12/27/2024 19:08 PM CLINICAL INDICATIONS: ALP significantly elevated, eval liver transplant vasculature COMPARISON: US ABDOMEN LIVER TRANSPLANT DOPPLER May 30, 2024 TECHNIQUE: Multiple longitudinal and transverse real-time armijo scale survey images of the liver were obtained. The portal veins, hepatic arteries, hepatic veins, splenic vein, and inferior vena cava were evaluated using color flow Doppler and spectral waveform analysis. FINDINGS: Portal Vein: Preanastomosis: Caliber- 1 cm; Velocity- 32 cm/s Anastomosis: Caliber- 0.8 cm; Velocity- 37 cm/s Post anastomosis: Caliber- 1.1 cm; Velocity- 36 cm/s. Previously- Preanastomosis: Caliber- 1.1 cm; Velocity-36 cm/s Anastomosis: Caliber- 1.0 cm; Velocity-48 cm/s Post anastomosis: Caliber- 1.3 cm; Velocity-40 cm/s. Hepatic Arteries: Main, left and right hepatic arteries have normal spectral waveforms. The resistive index of the main hepatic artery measures 0.5, (previously measuring 0.72). The systolic acceleration time is 40 ms, previously 44 ms. Hepatic Veins: Right, middle and left hepatic veins have normal spectral waveforms and flow direction. Inferior Vena Cava: The inferior vena cava is unremarkable. Splenic Vein: The splenic vein is not well seen Liver: The liver parenchyma is homogenous in echotexture. No intrahepatic mass. Echogenic periphery of the vessels which may be secondary to pneumobilia. IMPRESSION IMPRESSION: 1. Marked scattered pneumobilia. Correlation with dedicated CT of the abdomen and pelvis is recommended. 2. Patent transplant vasculature. [facility] Radiology Study observation (narrative) [facility] US.doppler Abdominal vessels Ordered By: Uriel John on 12-27-2024 [facility] Work Phone: [email or web address] 12-26-2024 Amylase [Catalytic activity/Vol] 45 U/L 20 - 103 U/L [facility] Amylase [Catalytic activity/Vol] 45 U/L Normal 20-103 [facility] Comment on above: Performed By: #### I PB, HFP, CHM7, MGO, CA, AMYB ####[facility] (DEFAULT)[address] [place] [address] CALCIUMon 12-26-2024 Calcium [Mass/Vol] 9.1 mg/dL 8.6 - 10. 5 mg/dL [facility] Calcium [Mass/Vol] 9.1 mg/dL Normal 8.6-10.5 [facility] Comment on above: Performed By: #### I PB, HFP, CHM7, MGO, CA, AMYB ####[facility] (DEFAULT)[address] [place] [address] CBC AND ELECTRONIC DIFFon Erythrocyte distribution width (RBC) [Ratio] 16.9 % High 10.9 - 14.3 % [facility] Hematocrit (Bld) [Volume fraction] 22.1 % Low 39.6 - 48.8 % [facility] Hemoglobin (Bld) [Mass/Vol] 6.7 g/dL Critically low 13.4 - 16.8 g/dL [facility] Comment on above: This result has been called to Marcus Story RN by [email or web address] on 12/26/2024 18:28:14, and has been read back. MCH (RBC) [Entitic mass] 27.1 pg 26.1 - 33.3 pg [facility] MCHC (RBC) [Mass/Vol] 30.3 g/dL Low 31.9 - 36.5 g/dL [facility] MCV (RBC) [Entitic vol] 89.5 fL 79.0 - 94.5 fL [facility] Comment on above: Results inconsistent with previous results Platelet mean volume (Bld) [Entitic vol] 9.7 fL 8.7 - 12.3 fL [facility] Platelets (Bld) [#/Vol] 525 10*3/uL High 146 - 337 K/uL [facility] RBC (Bld) [#/Vol] 2.47 10*6/uL Low [facility] WBC (Bld) [#/Vol] 1.79 10*3/uL Low 3.73 - 10. 10 K/uL [facility] Hematocrit (Bld) [Volume fraction] 22.1 % Low 39.6-48.8 [facility] Comment on above: Performed By: #### L [id number] ####[facility] (DEFAULT)[address] [place] [address] Hemoglobin (Bld) [Mass/Vol] 6.7 g/dL Critically low 13.4-16.8 [facility] Comment on above: Result Comment: This result has been called to Marcus Story RN by [email or web address] on 12/26/2024 18:28:14, and has been read back. Performed By: #### L [id number] ####[facility] (DEFAULT)[address] [place] [address], [place] [address] MCV (RBC) [Entitic vol] 89.5 fL Normal 79.0-94.5 [facility] Comment on above: Result Comment: Resu lts inconsistent with previous results Performed By: #### L [id number] ####[facility] (DEFAULT)[address] [place] [address] Mean Cell Hgb 27.1 pg Normal 26.1-33.3 [facility] Comment on above: Performed By: #### L AB980 ####[facility] (DEFAULT)[address] [place] [address] Mean Cell Hgb Conc 30.3 g/dL Low 31.9-36.5 [facility] Comment on above: Performed By: #### L [id number] ####[facility] (DEFAULT)[address] [facility] [place] [address] Platelet mean volume (Bld) [Entitic vol] 9.7 fL Normal 8.7-12.3 [facility] Comment on above: Performed By: #### L [id number] ####[facility] (DEFAULT)[address] [place] [address] Platelets (Bld) [#/Vol] 525 10*3/uL High 146-337 [facility] Comment on above: Performed By: #### L [id number] ####[facility] (DEFAULT)[address] [place] [address] RBC (Bld) [#/Vol] 2.47 10*6/uL Low 4.38-5.83 [facility] Comment on above: Performed By: #### L [id number] ####[facility] (DEFAULT)[address] [place] [address] RBC Distribution 16.9 % High 10.9-14.3 [facility] Comment on above: Performed By: #### L [id number] ####[facility] (DEFAULT)[address] [place] [address] WBC (Bld) [#/Vol] 1.79 10*3/uL Low 3.73-10.10 [facility] Comment on above: Performed By: #### L [id number] ####[facility] (DEFAULT)[address] [place] [address] CHEM 7 (LYTES,BUN,CREA,GLUC) on 12-26-2024 Anion gap [Moles/Vol] 13 mmol/L 7 - 17 mmol/L [facility] Chloride [Moles/Vol] 101 mmol/L 98 - 10 8 mmol/L [facility] CO2 [Moles/Vol] 23 mmol/L 21 - 31 mmol/L [facility] Creatinine [Mass/Vol] 0.98 mg/dL 0.70 - 1.30 mg/dL [facility] eGFR, CKD-EPI, Male 88 - PINF [facility] Comment on above: Reported eGFR is bas ed on the CKD-EPI 2020 equation using creatinine, age, and sex. Glucose [Mass/Vol] 117 mg/dL 70 - 179 mg/dL [facility] Osmolality Calc [Osmolality] 285 [facility] Potassium [Moles/Vol] 4.1 mmol/L 3.5 - 5.0 mmol/L [facility] Sodium [Moles/Vol] 133 mmol/L Low 135 - 145 mmol/L [facility] Urea nitrogen [Mass/Vol] 23 mg/dL 7 - 25 mg/dL [facility] Urea nitrogen/Creatinine [Mass ratio] 23 mg/mg [facility] Anion gap [Moles/Vol] 13 mmol/L Normal 7-17 [facility] Comment on above: Performed By: #### I PB, HFP, CHM7, MGO, CA, AMYB ####[facility] (DEFAULT)[address] [place] [address] Chloride [Moles/Vol] 101 mmol/L Normal 98-108 [facility] Comment on above: Performed By: #### I PB, HFP, CHM7, MGO, CA, AMYB ####[facility] (DEFAULT)[address] [place] [address] CO2 [Moles/Vol] 23 mmol/L Normal 21-31 [facility] Comment on above: Performed By: #### I PB, HFP, CHM7, MGO, CA, AMYB ####[facility] (DEFAULT)[address] [place] [address] Creatinine [Mass/Vol] 0.98 mg/dL Normal 0.70-1.30 [facility] Comment on above: Performed By: #### I PB, HFP, CHM7, MGO, CA, AMYB ####[facility] (DEFAULT)[address] [place] [address] GFR/1.73 sq M.predicted among non-blacks MDRD (S/P/Bld) [Vol rate/Area] 88 mL/min/{1.73_m2} Normal >=60 [facility] Comment on above: Result Comment: Repo rted eGFR is based on the CKD-EPI 2020 equation using creatinine, age, and sex. Performed By: #### I PB, HFP, CHM7, MGO, CA, AMYB ####[facility] (DEFAULT)[address] [place] [address] Glucose [Mass/Vol] 117 mg/dL Normal Nonfastin -179 mg/dL; Fastin-99 [facility] Comment on above: Performed By: #### I PB, HFP, CHM7, MGO, CA, AMYB ####[facility] (DEFAULT)[address] [facility] [place] [address] Osmolality [Osmolality] 285 mosm/kg Normal 278-305 [facility] Comment on above: Performed By: #### I PB, HFP, CHM7, MGO, CA, AMYB ####[facility] (DEFAULT)[address] [place] [address] Potassium [Moles/Vol] 4.1 mmol/L Normal 3.5-5.0 [facility] Comment on above: Performed By: #### I PB, HFP, CHM7, MGO, CA, AMYB ####[facility] (DEFAULT)[address] [place] [address] Sodium [Moles/Vol] 133 mmol/L Low 135-145 [facility] Comment on above: Performed By: #### I PB, HFP, CHM7, MGO, CA, AMYB ####[facility] (DEFAULT)[address] [facility] [place] [address] Urea nitrogen [Mass/Vol] 23 mg/dL Normal 7-25 [facility] Comment on above: Performed By: #### I PB, HFP, CHM7, MGO, CA, AMYB ####[facility] (DEFAULT)[address] [place] [address] Urea nitrogen/Creatinine [Mass ratio] 23 mg/mg Normal [facility] Comment on above: Performed By: #### I PB, HFP, CHM7, MGO, CA, AMYB ####[facility] (DEFAULT)[address] [place] [address] HEPATIC FUNCTION PANELon Albumin [Mass/Vol] 3.2 g/dL Low 3.5 - 5.0 g/dL [facility] ALP [Catalytic activity/Vol] 685 U/L High 32 - 126 U/L [facility] ALT [Catalytic activity/Vol] 7 U/L Low 10 - 52 U/L [facility] AST [Catalytic activity/Vol] 12 U/L 10 - 39 U/L [facility] Bilirubin [Mass/Vol] 0.3 mg/dL [facility]F - 1.5 mg/dL [facility] Bilirubin.direct [Mass/Vol] mg/dL NINF - 0.3 mg/dL [facility] Protein [Mass/Vol] 5.9 g/dL Low 6.4 - 8.3 g/dL [facility] Albumin [Mass/Vol] 3.2 g/dL Low 3.5-5.0 [facility] Comment on above: Performed By: #### I PB, HFP, CHM7, MGO, CA, AMYB ####[facility] (DEFAULT)[address] [place] [address] ALP [Catalytic activity/Vol] 685 U/L High 32-126 [facility] Comment on above: Performed By: #### I PB, HFP, CHM7, MGO, CA, AMYB ####[facility] (DEFAULT)[address] [place] [address] ALT [Catalytic activity/Vol] 7 U/L Low 10-52 [facility] Comment on above: Performed By: #### I PB, HFP, CHM7, MGO, CA, AMYB ####[facility] (DEFAULT)[address] [place] [address] AST [Catalytic activity/Vol] 12 U/L Normal 10-39 [facility] Comment on above: Performed By: #### I PB, HFP, CHM7, MGO, CA, AMYB ####[facility] (DEFAULT)[address] [place] [address] Bilirubin [Mass/Vol] 0.3 mg/dL Normal <1.5 [facility] Comment on above: Performed By: #### I PB, HFP, CHM7, MGO, CA, AMYB ####[facility] (DEFAULT)[address] [place] [address] Bilirubin Direct < Normal <0.3 [facility] Comment on above: Performed By: #### I PB, HFP, CHM7, MGO, CA, AMYB ####[facility] (DEFAULT)[address] [place] [address] Protein [Mass/Vol] 5.9 g/dL Low 6.4-8.3 [facility] Comment on above: Performed By: #### I PB, HFP, CHM7, MGO, CA, AMYB ####[facility] (DEFAULT)[address] [place] [address] MAGNESIUMon 12-26-2024 Magnesium [Mass/Vol] 1.3 mg/dL Low 1.6 - 2 .6 mg/dL [facility] Magnesium [Mass/Vol] 1.3 mg/dL Low 1.6-2.6 [facility] Comment on above: Performed By: #### I PB, HFP, CHM7, MGO, CA, AMYB ####[facility] (DEFAULT)[address] [place] [address] MANUAL DIFFon 12-26-2024 Band form neutrophils/100 WBC (Bld) 0.0 % [facility] Basophils (Bld) [#/Vol] 0.00 10*3/uL 0.00 - 0.09 K/uL [facility] Basophils/100 WBC (Bld) 0.0 % [facility] Differential cell count method Nom (Bld) Manual Differential [facility] Eosinophils (Bld) [#/Vol] 0.01 10*3/uL [facility] Eosinophils/100 WBC (Bld) 0.8 % [facility] Lymphocytes (Bld) [#/Vol] 0.66 10*3/uL Low 0.83 - 3.57 K/uL [facility] Lymphocytes/100 WBC (Bld) 36.9 % [facility] Monocytes (Bld) [#/Vol] 0.60 10*3/uL 0.24 - 0.93 K/uL [facility] Monocytes/100 WBC (Bld) 33.6 % [facility] Neutrophils (Bld) [#/Vol] 0.51 10*3/uL Low 1.57 - 6.19 K/uL [facility] Ovalocytes LM Ql (Bld) Present Abnormal (none) [facility] Platelet clump LM Ql (Bld) Present Abnormal (none) [facility] Platelets Estimate (Bld) [#/Vol] Automated platelet count confirmed by manual slide review [facility] RBC morphology finding Nom (Bld) RBC INDICES CONFIRMED WITH MANUAL SLIDE REVIEW [facility] Segmented neutrophils/100 WBC (Bld) 28.7 % [facility] Comment on above: Toxic granulation pr esent Target cells LM Ql (Bld) Present Abnormal (none) [facility] No Panel Informationon 12-26 Interpretation and review of laboratory results Abnormal [facility] Interpretation and review of laboratory results Normal [facility] Interpretation and review of laboratory results Abnormal [facility] PHOSPHATE, INORGANICon 12-26 Phosphate [Mass/Vol] 3.4 mg/dL 2.2 - 4 .6 mg/dL [facility] Phosphorous 3.4 mg/dL Normal 2.2-4.6 [facility] Comment on above: Performed By: #### I PB, HFP, CHM7, MGO, CA, AMYB ####[facility] (DEFAULT)[address] [place] [address] PT,INR,PTTon 12-26-2024 aPTT Coag (PPP) [Time] 34.1 s [facility] INR Coag (Bld) [Relative time] 1.2 {INR} High 0.9 - 1.1 [facility] Interpretation and review of laboratory results Abnormal [facility] PT Coag (PPP) [Time] 15.5 s High [facility] aPTT Coag (Bld) [Time] 34.1 s Normal 24.0-34.3 [facility] Comment on above: Performed By: #### P TPTT ####[facility] (DEFAULT)[address] [place] [address] INR Coag (PPP) [Relative time] 1.2 {INR} High 0.9-1.1 [facility] Comment on above: Performed By: #### P TPTT ####[facility] (DEFAULT)[address] [place] [address] PT Coag (PPP) [Time] 15.5 s High 11.9-14.2 [facility] Comment on above: Performed By: #### P TPTT ####[facility] (DEFAULT)[address] [place] [address] SCREEN, VREon 12-26-2024 Vancomycin Resistant Enterococcus Negative Normal Negative [facility] Comment on above: Order Comment: Colle ct with an ESWAB; requires 1 perirectal site. Performed By: #### S CV ####[facility] (DEFAULT)[address] [place] [address] TYPE AND SCREENon 12-26-2024 ABO/RH(D) TYPE Positive [facility] Specimen Expiration 12/29/2024 23:59 [facility] ABO/RH(D) TYPE Positive Normal [facility] Comment on above: Performed By: #### X M ####[facility] (DEFAULT)[address] [place] [address] Specimen Expiration 12/29/2024 23:59 Normal [facility] Comment on above: Performed By: #### X M ####[facility] (DEFAULT)[address] [place] [address] URINALYSIS REFLEX TO CULTURE PERFORMABLEon 12-26-2024 Appearance (U) Clear Clear [facility] Bacteria LM Ql (Urine sed) ABSENT ABSENT [facility] Color (U) Yellow Yellow [facility] Epithelial cells.squamous LM Ql (Urine sed) 0-2/hpf 0-2/hpf, 3-5/hpf = 1+ [facility] Glucose Test strip (U) [Mass/Vol] Negative Negative [facility] Interpretation and review of laboratory results Normal [facility] Ketones (U) [Mass/Vol] Negative Negative [facility] Leukocyte esterase Test strip Ql (U) Negative Negative [facility] Nitrite Ql (U) Negative Negative [facility] pH (U) 5.5 [pH] 5.0 - 7.0 [facility] Protein (U) [Mass/Vol] Negative Negative [facility] RBC (U) [#/Vol] Negative Negative [facility] RBC LM.HPF (Urine sed) [#/Area] 0-2 [facility] Specific gravity (U) [Rel density] 1.020 1.001 - 1.035 [facility] Urobilinogen (U) [Mass/Vol] 0.2 E.U./dL 0.2 E.U/dL, 1.0 E.U/dL [facility] WBC LM.HPF (Urine sed) [#/Area] 0 - 5 [facility] Appearance (U) Clear Normal Clear [facility] Comment on above: Order Comment: For i ndwelling catheters, specimen collection is acceptable on catheter day 1 and 2 only. ? Performed By: #### U [id number] ####[facility] (DEFAULT)[address] [place] [address] Bacteria ABSENT Normal ABSENT [facility] Comment on above: Order Comment: For i ndwelling catheters, specimen collection is acceptable on catheter day 1 and 2 only. ? Performed By: #### U [id number] ####[facility] (DEFAULT)[address] [facility] [place] [address] Blood Urine Negative Normal Negative [facility] Comment on above: Order Comment: For i ndwelling catheters, specimen collection is acceptable on catheter day 1 and 2 only. ? Performed By: #### U [id number] ####[facility] (DEFAULT)[address] [facility] [place] [address] Color (U) Yellow Normal Yellow [facility] Comment on above: Order Comment: For i ndwelling catheters, specimen collection is acceptable on catheter day 1 and 2 only. ? Performed By: #### U [id number] ####[facility] (DEFAULT)[address] [place] [address] Glucose Ql (U) Negative Normal Negative [facility] Comment on above: Order Comment: For i ndwelling catheters, specimen collection is acceptable on catheter day 1 and 2 only. ? Performed By: #### U [id number] ####[facility] (DEFAULT)[address] [place] [address] Ketones Ql (U) Negative Normal Negative [facility] Comment on above: Order Comment: For i ndwelling catheters, specimen collection is acceptable on catheter day 1 and 2 only. ? Performed By: #### U [id number] ####[facility] (DEFAULT)[address] [place] [address] Leukocyte esterase Test strip Ql (U) Negative Normal Negative [facility] Comment on above: Order Comment: For i ndwelling catheters, specimen collection is acceptable on catheter day 1 and 2 only. ? Performed By: #### U [id number] ####[facility] (DEFAULT)[address] [place] [address] Nitrites Urine Negative Normal Negative [facility] Comment on above: Order Comment: For i ndwelling catheters, specimen collection is acceptable on catheter day 1 and 2 only. ? Performed By: #### U [id number] ####[facility] (DEFAULT)[address] [place] [address] pH (U) 5.5 [pH] Normal 5.0-7.0 [facility] Comment on above: Order Comment: For i ndwelling catheters, specimen collection is acceptable on catheter day 1 and 2 only. ? Performed By: #### U [id number] ####[facility] (DEFAULT)[address] [facility] [place] [address] Protein Urine Negative Normal Negative [facility] Comment on above: Order Comment: For i ndwelling catheters, specimen collection is acceptable on catheter day 1 and 2 only. ? Performed By: #### U [id number] ####[facility] (DEFAULT)[address] [place], [place] [address], [place] [address] RBC Urine 0-2 Normal 0-2 [facility] Comment on above: Order Comment: For i ndwelling catheters, specimen collection is acceptable on catheter day 1 and 2 only. ? Performed By: #### U [id number] ####[facility] (DEFAULT)[address] [place], [place] [address], [place] [address] Specific [place] Urine 1.020 Normal 1.001-1.035 [facility] Comment on above: Order Comment: For i ndwelling catheters, specimen collection is acceptable on catheter day 1 and 2 only. ? Performed By: #### U [id number] ####[facility] (DEFAULT)[address] [facility] [place] [address] Squamous/Epithelial Cells, Urine 0-2/hpf Normal 0-2/hpf, 3-5/hpf = 1+ [facility] Comment on above: Order Comment: For i ndwelling catheters, specimen collection is acceptable on catheter day 1 and 2 only. ? Performed By: #### U [id number] ####[facility] (DEFAULT)[address] [place] [address] Urobilinogen Urine 0.2 E.U./dL Normal 0.2 E.U/d L, 1.0 E.U/dL [facility] Comment on above: Order Comment: For i ndwelling catheters, specimen collection is acceptable on catheter day 1 and 2 only. ? Performed By: #### U [id number] ####[facility] (DEFAULT)[address] [place] [address] WBC Urine 0 - 5 Normal 0 - 5 [facility] Comment on above: Order Comment: For i ndwelling catheters, specimen collection is acceptable on catheter day 1 and 2 only. ? Performed By: #### U [id number] ####[facility] (DEFAULT)[address] [place] [address] L3400.8500on 12-24-2024 CMV Quant DNA Negative Normal Negative [facility] Comment on above: Order Comment: Test( s) [id number] (FK506), Bloodwas developed and its performance characteristicsdetermined by [facility]. It has not been cleared or approvedby the Food and Drug Administration. Result Comment: No C MV DNA detected.The quantitative range of this assay is 200 to 1 millionIU/mL. Performed By: #### L 3400.8500, L3380.1000, L500.4050, L100.0100, L501.2300, L501.5101, L501.4700, L501.5200 ####[facility] [address] [place], [place], [id number] CMV Quant DNA TNP Normal . [facility] Comment on above: Order Comment: Test( s) [id number] (FK506), Bloodwas developed and its performance characteristicsdetermined by [facility]. It has not been cleared or approvedby the Food and Drug Administration. Result Comment: Resu lt Units: log10 IU/mLUnable to calculate result since non-numeric resultobtained for component test. Performed By: #### L 3400.8500, L3380.1000, L500.4050, L100.0100, L501.2300, L501.5101, L501.4700, L501.5200 ####[facility] [address] [place], [address] L501.5101on 12-24-2024 GGTP 57 IU/L Normal 0-65 [facility] Comment on above: Order Comment: Test( s) [id number] (FK506), Bloodwas developed and its performance characteristicsdetermined by [facility]. It has not been cleared or approvedby the Food and Drug Administration. Result Comment: Perf ormed at: [facility] [address] [id number] Director: Red Graham PhD, Phone: [phone] at: [facility] [address] [id number] Director: Sergio Machado MD, Phone: [phone] Performed By: #### L 3400.8500, L3380.1000, L500.4050, L100.0100, L501.2300, L501.5101, L501.4700, L501.5200 ####[facility] [address] [facility] [place], [address] Tacrolimus (Prograf)on 12-24 Tacrolimus (Bld) [Mass/Vol] 5.2 ng/mL Normal 5.0-20.0 [facility] Comment on above: Order Comment: Test( s) [id number] (FK506), Bloodwas developed and its performance characteristicsdetermined by [facility]. It has not been cleared or approvedby the Food and Drug Administration. Result Comment: Targ et steady state trough concentration forTacrolimus varies based on type of organ transplantimmunosuppressive protocol and other patient specificfactors. Tacrolimus trough concentrations should beinterpreted in conjunction with clinical assessmentsof rejection and tolerability. Values obtained withdifferent assay methods cannot be used interchangeablydue to differences in assay methods and cross-reactivtywith metabolites, nor should correction factors beapplied. Therefore, consistent use of one assay forindividual patients is recommended.Detection Limit = 0.5 ng/mLPerformed by LC-MS/MS technology. Performed By: #### L 3400.8500, L3380.1000, L500.4050, L100.0100, L501.2300, L501.5101, L501.4700, L501.5200 ####[facility] [address] [place], [address] CBC W/Diff, Automatedon 12-01 PATH REV Reviewed Normal [facility] Comment on above: Result Comment: LEUK OPENIA WITH ABSOLUTE NEUTROPENIA AND LYMPHOPENIA.RARE NEUTROPHILS DEMONSTRATE BLUE-GREEN CYTOPLASMICINCLUSIONS WHICH CAN BE SEEN WITH LIVER DISEASE AND SUGGESTA POOR PROGNOSIS.SEVERE NORMOCYTIC HYPOCHROMIC ANEMIA WITH MILD ANISOCYTOSIS,1+ OVALOCYTES AND 1+ TARGET CELLS.THROMBOCYTOSIS.Eulalia Bautista MD 12/22/2024 Performed By: #### L 3400.8500, L3380.1000, L500.4050, L100.0100, L501.2300, L501.5101, L501.4700, L501.5200 ####[facility] [address] [place], [address] Abdomen/Pelvis W IV Cont ONL Yon 12-21-2024 Abdomen/Pelvis W IV Cont ONLY Normal [facility] Absolute lymphocyte countOrd ered By: Michelle Barrera on 12-21-2024 Lymphocytes Auto (Unsp spec) [#/Vol] 0.86 10*3/uL 0.83-4.51 [facility] Absolute lymphocyte countOrd ered By: Robe Zavala on 12-21-2024 Lymphocytes Auto (Unsp spec) [#/Vol] 0.51 10*3/uL Low 0.83-4.51 [facility] Activated partial thrombopla stin time (aPTT) in platelet poor plasma by coagulation aOrdered By: Michelle Barrera on 12-21-2024 aPTT Coag (PPP) [Time] 39.2 s High 24.1-36.2 [facility] Ammoniaon 12-21-2024 Ammonia (P) [Moles/Vol] 11.6 umol/L Low 16-60 [facility] Comment on above: Performed By: #### B RC, BTS, L3380.1000, L300.4310, L503.5510, L100.0100, L300.3900 ####[facility] [address] [place], [address] Anion gap in Serum or Plasma Ordered By: Michelle Barrera on 12-21-2024 Anion gap [Moles/Vol] 10 mmol/L 07-14 [facility] Anion gap in Serum or Plasma Ordered By: Robe Zavala on 12-21-2024 Anion gap [Moles/Vol] 11 mmol/L 07-14 [facility] BRCon 12-21-2024 RC Normal [facility] Comment on above: Result Comment: [id number] OP RC TRANSFUSED 12/21/24 [id number] OP RC TRANSFUSED 12/21/24 1811 Performed By: #### B RC, BTS, L3380.1000, L300.4310, L503.5510, L100.0100, L300.3900 ####[facility] [address] [place], [address] BUN/creatinine ratioOrdered By: Michelle Barrera on 12-21-2024 Urea nitrogen/Creatinine [Mass ratio] 21.4 mg/mg High 12-19 [facility] BUN/creatinine ratioOrdered By: Robe Zavala on 12-21-2024 Urea nitrogen/Creatinine [Mass ratio] 20.6 mg/mg High 12-19 [facility] Basic Metabolic Profile (BMP )on 12-21-2024 BUN/CRE 21.4 RATIO High 12-19 [facility] Comment on above: Performed By: #### L 500.2500, L500.3400, L501.2450 ####[facility] [address] [place], [address] Calcium [Mass/Vol] 8.5 mg/dL Normal 7.6-11.0 [facility] Comment on above: Performed By: #### L 500.2500, L500.3400, L501.2450 ####[facility] [address] [place], [address] Chloride [Moles/Vol] 105 mmol/L Normal 98-108 [facility] Comment on above: Performed By: #### L 500.2500, L500.3400, L501.2450 ####[facility] [address] [place], [address] CO2 [Moles/Vol] 23.7 mmol/L Normal 21.0-32.0 [facility] Comment on above: Performed By: #### L 500.2500, L500.3400, L501.2450 ####[facility] [address] [place], [address] Creatinine [Mass/Vol] 1.38 mg/dL High 0.70-1.20 [facility] Comment on above: Performed By: #### L 500.2500, L500.3400, L501.2450 ####[facility] [address] [place], [address] ECRCL 35.75 ml/min Low 50-250 [facility] Comment on above: Performed By: #### L 500.2500, L500.3400, L501.2450 ####[facility] [address] [place], [address] GAP 10 Normal 5-15 [facility] Comment on above: Performed By: #### L 500.2500, L500.3400, L501.2450 ####[facility] [address] [place], [address] GFR/1.73 sq M.predicted among non-blacks MDRD (S/P/Bld) [Vol rate/Area] 59 mL/min/{1.73_m2} Low >60 [facility] Comment on above: Result Comment: mL/m in/1.73m2 CKD-EPI Creatinine Equation (2020) Performed By: #### L 500.2500, L500.3400, L501.2450 ####[facility] [address] [place], [address] Glucose [Mass/Vol] 94 mg/dL Normal 70-99 [facility] Comment on above: Performed By: #### L 500.2500, L500.3400, L501.2450 ####[facility] [address] [place], [address] Potassium [Moles/Vol] 4.3 mmol/L Normal 3.3-5.1 [facility] Comment on above: Performed By: #### L 500.2500, L500.3400, L501.2450 ####[facility] [address] [place], [address] Sodium [Moles/Vol] 139 mmol/L Normal 133-145 [facility] Comment on above: Performed By: #### L 500.2500, L500.3400, L501.2450 ####[facility] [address] [place], [address] Urea nitrogen [Mass/Vol] 30 mg/dL High 4-19 [facility] Comment on above: Performed By: #### L 500.2500, L500.3400, L501.2450 ####[facility] [address] [place], [address] Bilirubin Test strip Ql (U)O rdered By: Michelle Barrera on 12-21-2024 Bilirubin Ql (U) Negative Negative [facility] Bilirubin directOrdered By: Michelle Barrera on 12-21-2024 Bilirubin.direct [Mass/Vol] 0.12 mg/dL 0.00-0.30 [facility] Bilirubin, DirectOrdered By: Robe Zavala on 12-21-2024 Bilirubin.direct [Mass/Vol] 0.15 mg/dL Normal 0.00-0.30 [facility] Comment on above: Performed By: #### L 3400.8500, L3380.1000, L500.4050, L100.0100, L501.2300, L501.5101, L501.4700, L501.5200 ####[facility] [address] [place], [address] Bilirubin, totalOrdered By: Michelle Barrera on 12-21-2024 Bilirubin [Mass/Vol] 0.17 mg/dL 0.00-1.30 [facility] Blood band neutrophil count as percentage of total leukocytesOrdered By: Michelle Barrera on 12-21-2024 Band form neutrophils/100 WBC (Bld) 6 % High 0-5 [facility] Blood band neutrophil count as percentage of total leukocytesOrdered By: Robe Zavala on 12-21-2024 Band form neutrophils/100 WBC (Bld) 4 % 0-5 [facility] Blood eosinophils/100 leukoc ytesOrdered By: Michelle Barrera on 12-21-2024 Eosinophils/100 WBC (Bld) 1 % 0-5 [facility] Blood lymphocytes/100 leukoc ytesOrdered By: Michelle Barrera on 12-21-2024 Lymphocytes/100 WBC (Bld) 45 % High 19-41 [facility] Blood lymphocytes/100 leukoc ytesOrdered By: Robe Zavala on 12-21-2024 Lymphocytes/100 WBC (Bld) 36 % 19-41 [facility] Blood metamyelocytes/100 susy kocytesOrdered By: Robe Zavala on 12-21-2024 Metamyelocytes/100 WBC (Bld) 1 % 0-1 [facility] Blood monocytes/100 leukocyt esOrdered By: Michelle Barrera on 12-21-2024 Monocytes/100 WBC (Bld) 20 % High 0-10 [facility] Blood monocytes/100 leukocyt esOrdered By: Robe Zavala on 12-21-2024 Monocytes/100 WBC (Bld) 18 % High 0-10 [facility] Blood segmented neutrophils/ 100 leukocytesOrdered By: Michelle Barrera on 12-21-2024 Segmented neutrophils/100 WBC (Bld) 28 % Low 47-70 [facility] Blood segmented neutrophils/ 100 leukocytesOrdered By: Robe Zavala on 12-21-2024 Segmented neutrophils/100 WBC (Bld) 41 % Low 47-70 [facility] CBC W/Diff, Automatedon 12-01 Absolute Lymph 0.86 X10 3/uL Normal 0.83-4.51 [facility] Comment on above: Performed By: #### B RC, BTS, L3380.1000, L300.4310, L503.5510, L100.0100, L300.3900 ####[facility] [address] [place], [place], [id number] Absolute Neut 0.6 X10 3/uL Low 2.0-7.7 [facility] Comment on above: Performed By: #### B RC, BTS, L3380.1000, L300.4310, L503.5510, L100.0100, L300.3900 ####[facility] [address] [place], [place], [id number] PATH REV Reviewed Normal [facility] Comment on above: Result Comment: SEE REPORT IN PATIENT'S EMR AMENDED REPORT 12/21/24 1421 PATH REV previously reported as: June Performed By: #### L 501.4700, L3380.1000, L3400.8500, L501.5200, L500.4050, L100.0100, L501.5101, L501.2300 ####[facility] [address] [place], [place], [id number] Carbon dioxide, total [Moles /volume] in Central venous bloodOrdered By: Michelle Barrera on 12-21-2024 CO2 [Moles/Vol] 23.7 mmol/L 21.0-32.0 [facility] Chloride assayOrdered By: Hamzah Barrera on 12-21-2024 Chloride [Moles/Vol] 105 mmol/L 98-108 [facility] Comprehensive Metabolic Prof ilOrdered By: Robe Zavala on 12-21-2024 Albumin [Mass/Vol] 3.3 g/dL Low 3.4-4.8 [facility] Comment on above: Performed By: #### L 3400.8500, L3380.1000, L500.4050, L100.0100, L501.2300, L501.5101, L501.4700, L501.5200 ####[facility] [address] [place], [place], [phone] Albumin/Globulin [Mass ratio] 1.1 {ratio} Normal 0.9-2.4 [facility] Comment on above: Performed By: #### L 3400.8500, L3380.1000, L500.4050, L100.0100, L501.2300, L501.5101, L501.4700, L501.5200 ####[facility] [address] [place], [place], [phone] ALT [Catalytic activity/Vol] 22 U/L Normal <=46 [facility] Comment on above: Performed By: #### L 3400.8500, L3380.1000, L500.4050, L100.0100, L501.2300, L501.5101, L501.4700, L501.5200 ####[facility] [address] [place], [place], [phone] Bilirubin [Mass/Vol] 0.23 mg/dL Normal 0.00-1.30 [facility] Comment on above: Performed By: #### L 3400.8500, L3380.1000, L500.4050, L100.0100, L501.2300, L501.5101, L501.4700, L501.5200 ####[facility] [address] [place], [address] Calcium [Mass/Vol] 8.9 mg/dL Normal 7.6-11.0 [facility] Comment on above: Performed By: #### L 3400.8500, L3380.1000, L500.4050, L100.0100, L501.2300, L501.5101, L501.4700, L501.5200 ####[facility] [address] [place], [place], [phone] Chloride [Moles/Vol] 105 mmol/L Normal 98-108 [facility] Comment on above: Performed By: #### L 3400.8500, L3380.1000, L500.4050, L100.0100, L501.2300, L501.5101, L501.4700, L501.5200 ####[facility] [address] [place], [place], [phone](455) CO2 [Moles/Vol] 21.7 mmol/L Normal 21.0-32.0 [facility] Comment on above: Performed By: #### L 3400.8500, L3380.1000, L500.4050, L100.0100, L501.2300, L501.5101, L501.4700, L501.5200 ####[facility] [address] [place], [place], [phone](105) Creatinine [Mass/Vol] 1.53 mg/dL High 0.70-1.20 [facility] Comment on above: Performed By: #### L 3400.8500, L3380.1000, L500.4050, L100.0100, L501.2300, L501.5101, L501.4700, L501.5200 ####[facility] [address] [place], [place], [phone](347) GFR/1.73 sq M.predicted among non-blacks MDRD (S/P/Bld) [Vol rate/Area] 52 mL/min/{1.73_m2} Low >60 [facility] Comment on above: Result Comment: mL/m in/1.73m2 CKD-EPI Creatinine Equation (2020) Performed By: #### L 3400.8500, L3380.1000, L500.4050, L100.0100, L501.2300, L501.5101, L501.4700, L501.5200 ####[facility] [address] [place], [address] Globulin (S) [Mass/Vol] 3.0 g/dL Normal 2.2-4.2 [facility] Comment on above: Performed By: #### L 3400.8500, L3380.1000, L500.4050, L100.0100, L501.2300, L501.5101, L501.4700, L501.5200 ####[facility] [address] [place], [address] Glucose [Mass/Vol] 86 mg/dL Normal 70-99 [facility] Comment on above: Performed By: #### L 3400.8500, L3380.1000, L500.4050, L100.0100, L501.2300, L501.5101, L501.4700, L501.5200 ####[facility] [address] [place], [address] Sodium [Moles/Vol] 138 mmol/L Normal 133-145 [facility] Comment on above: Performed By: #### L 3400.8500, L3380.1000, L500.4050, L100.0100, L501.2300, L501.5101, L501.4700, L501.5200 ####[facility] [address] [place], [address] Urea nitrogen [Mass/Vol] 32 mg/dL High 4-19 [facility] Comment on above: Performed By: #### L 3400.8500, L3380.1000, L500.4050, L100.0100, L501.2300, L501.5101, L501.4700, L501.5200 ####[facility] [address] [place], [place], [phone] Comprehensive Metabolic Prof ilon 12-21-2024 ALK PHOS 859 U/L High 40-129 [facility] Comment on above: Performed By: #### L 3400.8500, L3380.1000, L500.4050, L100.0100, L501.2300, L501.5101, L501.4700, L501.5200 ####[facility] [address] [place], [place], [phone] AST [Catalytic activity/Vol] 20 U/L Normal <=37 [facility] Comment on above: Performed By: #### L 3400.8500, L3380.1000, L500.4050, L100.0100, L501.2300, L501.5101, L501.4700, L501.5200 ####[facility] [address] [place], [place], [phone] BUN/CRE 20.6 RATIO High 10-20 [facility] Comment on above: Performed By: #### L 3400.8500, L3380.1000, L500.4050, L100.0100, L501.2300, L501.5101, L501.4700, L501.5200 ####[facility] [address] [place], [place], [phone] ECRCL 32.94 ml/min Low 50-250 [facility] Comment on above: Performed By: #### L 3400.8500, L3380.1000, L500.4050, L100.0100, L501.2300, L501.5101, L501.4700, L501.5200 ####[facility] [address] [place], [place], [phone] GAP 11 Normal 5-15 [facility] Comment on above: Performed By: #### L 3400.8500, L3380.1000, L500.4050, L100.0100, L501.2300, L501.5101, L501.4700, L501.5200 ####[facility] [address] [place], [address] Potassium [Moles/Vol] 3.9 mmol/L Normal 3.3-5.1 [facility] Comment on above: Performed By: #### L 3400.8500, L3380.1000, L500.4050, L100.0100, L501.2300, L501.5101, L501.4700, L501.5200 ####[facility] [address] [place], [address] T PROT 6.3 g/dL Normal 5.9-8.4 [facility] Comment on above: Performed By: #### L 3400.8500, L3380.1000, L500.4050, L100.0100, L501.2300, L501.5101, L501.4700, L501.5200 ####[facility] [address] [place], [address] Cytomegalovirus (CMV) DNA me asurement by PCR (log units/volume)Ordered By: Robe Zavala on 12-21-2024 CMV DNA JACKY+probe (P) [Log units/Vol] TNP [facility] Dohle bodies detectionOrdere d By: Michelle Barrera on 12-21-2024 [facility] body LM Ql (Bld) 3+ [facility] Doe bodies detectionOrdere d By: Robe Zavala on 12-21-2024 [facility] body LM Ql (Bld) 2+ [facility] Emergency Department Summary on 12-21-2024 Emergency Department Summary Normal [facility] Erythrocyte distribution wid th ratioOrdered By: Michelle Barrera on 12-21-2024 Erythrocyte distribution width (RBC) [Ratio] 17.1 % High 11.6-14.6 [facility] Erythrocyte distribution wid th ratioOrdered By: Robe Zavala on 12-21-2024 Erythrocyte distribution width (RBC) [Ratio] 17.0 % High 11.6-14.6 [facility] Erythrocyte distribution wid th standard deviationOrdered By: Michelle Barrera on 12-21-2024 Erythrocyte distribution width (RBC) [Ratio] 55.7 fl High 35.1-43.9 [facility] Erythrocyte distribution wid th standard deviationOrdered By: Robe Zavala on 12-21-2024 Erythrocyte distribution width (RBC) [Ratio] 56.8 fl High 35.1-43.9 [facility] Gamma glutamyl transferase ( GGT) measurementOrdered By: Robe Zavala on 12-21-2024 Amylase [Catalytic activity/Vol] 57 U/L 0-65 [facility] Glomerular filtration rate ( GFR) estimation/1.73 sq m using serum, plasma, or whole bOrdered By: Michelle Barrera on 12-21-2024 GFR/1.73 sq M.predicted among non-blacks MDRD (S/P/Bld) [Vol rate/Area] 59 mL/min/{1.73_m2} Low >60 [facility] Hematocrit Auto (Bld) [Volum e fraction]Ordered By: Michelle Barrera on 12-21-2024 Hematocrit (Bld) [Volume fraction] 18.4 % Low 40-54 [facility] Hematocrit Auto (Bld) [Volum e fraction]Ordered By: Robe Zavala on 12-21-2024 Hematocrit (Bld) [Volume fraction] 19.5 % Low 40-54 [facility] Hemoglobin measurementOrdere d By: Michelle Barrera on 12-21-2024 Hemoglobin (Bld) [Mass/Vol] 5.6 g/dL Critically low 13.0-16.5 [facility] Hemoglobin measurementOrdere d By: Robe Zavala on 12-21-2024 Hemoglobin (Bld) [Mass/Vol] 5.8 g/dL Critically low 13.0-16.5 [facility] Ketones Test strip Ql (U)Ord ered By: Michelle Barrera on 12-21-2024 Ketones Ql (U) Negative Negative [facility] Lipaseon 12-21-2024 Lipase [Catalytic activity/Vol] 17 U/L Normal 13-75 [facility] Comment on above: Result Comment: Margarita bernard note:LIPASE revised reference range effective 22.New Lipase methodology. Expected to produce lower valuesthan the previous assay method.NEW Reference Range: 13 - 75 U/L Performed By: #### L 500.2500, L500.3400, L501.2450 ####[facility] [address] [place], [address] Liver Profileon 12-21-2024 Albumin [Mass/Vol] 3.3 g/dL Low 3.4-4.8 [facility] Comment on above: Performed By: #### L 500.2500, L500.3400, L501.2450 ####[facility] [address] [place], [address] ALK PHOS 829 U/L High 40-129 [facility] Comment on above: Performed By: #### L 500.2500, L500.3400, L501.2450 ####[facility] [address] [place], [address] ALT [Catalytic activity/Vol] 20 U/L Normal <=46 [facility] Comment on above: Performed By: #### L 500.2500, L500.3400, L501.2450 ####[facility] [address] [place], [address] AST [Catalytic activity/Vol] 17 U/L Normal <=37 [facility] Comment on above: Performed By: #### L 500.2500, L500.3400, L501.2450 ####[facility] [address] [place], [address] Bilirubin [Mass/Vol] 0.17 mg/dL Normal 0.00-1.30 [facility] Comment on above: Performed By: #### L 500.2500, L500.3400, L501.2450 ####[facility] [address] [place], [address] Bilirubin.direct [Mass/Vol] 0.12 mg/dL Normal 0.00-0.30 [facility] Comment on above: Performed By: #### L 500.2500, L500.3400, L501.2450 ####[facility] [address] [place], [address] Globulin (S) [Mass/Vol] 2.9 g/dL Normal 2.2-4.2 [facility] Comment on above: Performed By: #### L 500.2500, L500.3400, L501.2450 ####[facility] [address] [place], [address] T PROT 6.2 g/dL Normal 5.9-8.4 [facility] Comment on above: Performed By: #### L 500.2500, L500.3400, L501.2450 ####[facility] [address] [place], [address] MCV (mean corpuscular volume ) determinationOrdered By: Michelle Barrera on 12-21-2024 MCV (RBC) [Entitic vol] 90.2 fL 80-94 [facility] MCV (mean corpuscular volume ) determinationOrdered By: Robe Zavala on 12-21-2024 MCV (RBC) [Entitic vol] 90.7 fL 80-94 [facility] Magnesiumon 12-21-2024 Magnesium [Mass/Vol] 1.8 mg/dL Normal 1.5-2.2 [facility] Comment on above: Performed By: #### L 3400.8500, L3380.1000, L500.4050, L100.0100, L501.2300, L501.5101, L501.4700, L501.5200 ####[facility] [address] [place], [address] Magnesium measurement (mass/ volume)Ordered By: Robe Zavala on 12-21-2024 Magnesium (Unsp spec) [Mass/Vol] 1.8 mg/dL 1.5-2.2 [facility] Mean corpuscular hemoglobin (MCH) determinationOrdered By: Michelle Barrera on 12-21-2024 MCH (RBC) [Entitic mass] 27.5 pg 27.0-32.0 [facility] Mean corpuscular hemoglobin (MCH) determinationOrdered By: Robe Zavala on 12-21-2024 MCH (RBC) [Entitic mass] 27.0 pg 27.0-32.0 [facility] Mucus LM Ql (Urine sed)Order ed By: Michelle Barrera on 12-21-2024 Mucus Ql (Urine sed) 0 SEEN /hpf [facility] Nitrite Test strip Ql (U)Ord ered By: Michelle Barrera on 12-21-2024 Nitrite Ql (U) Negative Negative [facility] No Panel InformationOrdered By: Michelle Barrera on 12-21-2024 17 U/L <38 [facility] No Panel InformationOrdered By: Robe Zavala on 12-21-2024 1+ [facility] 20 U/L <38 [facility] Oncology Visit Reporton 12-01 Oncology Visit Report Normal [facility] Ovalocyte detectionOrdered B y: Michelle Barrera on 12-21-2024 Ovalocytes LM Ql (Bld) 1+ [facility] Partial Thromboplast Timeon 12-21-2024 aPTT Coag (Bld) [Time] 39.2 s High 24.1-36.2 [facility] Comment on above: Performed By: #### B RC, BTS, L3380.1000, L300.4310, L503.5510, L100.0100, L300.3900 ####[facility] [address] [place], [place], [phone] Phosphoruson 12-21-2024 Phosphate [Mass/Vol] 3.2 mg/dL Normal 2.7-4.5 [facility] Comment on above: Performed By: #### L 3400.8500, L3380.1000, L500.4050, L100.0100, L501.2300, L501.5101, L501.4700, L501.5200 ####[facility] [address] [place], [place], [phone] Platelet countOrdered By: Hamzah Barrera on 12-21-2024 Platelets (Bld) [#/Vol] 566 10*3/uL High 150-450 [facility] Platelet countOrdered By: Edwina Zavala on 12-21-2024 Platelets (Bld) [#/Vol] 597 10*3/uL High 150-450 [facility] Platelet estimateOrdered By: Michelle Barrera on 12-21-2024 Platelets LM Ql (Bld) ADEQUATE ADEQ [facility] Platelet morphologyOrdered B y: Michelle Barrera on 12-21-2024 Platelet morphology finding Nom (Bld) LARGE [facility] Potassium measurement (mass/ volume)Ordered By: Michelle Barrera on 12-21-2024 Potassium (Unsp spec) [Mass/Vol] 4.3 mmol/L 3.3-5.1 [facility] Potassium measurement (mass/ volume)Ordered By: Robe Zavala on 12-21-2024 Potassium (Unsp spec) [Mass/Vol] 3.9 mmol/L 3.3-5.1 [facility] Protein Test strip Ql (U)Ord ered By: Michelle Barrera on 12-21-2024 Protein Ql (U) 15 mg/dl High Negative [facility] Prothrombin Time w/INRon INR Coag (PPP) [Relative time] 1.2 {INR} Normal [facility] Comment on above: Performed By: #### B RC, BTS, L3380.1000, L300.4310, L503.5510, L100.0100, L300.3900 ####[facility] [address] [place], [place], [phone] PT Coag (PPP) [Time] 15.3 s High 11.7-14.9 [facility] Comment on above: Performed By: #### B RC, BTS, L3380.1000, L300.4310, L503.5510, L100.0100, L300.3900 ####[facility] [address] [place], [address] Prothrombin timeOrdered By: Michelle Barrera on 12-21-2024 PT Coag (PPP) [Time] 15.3 s High 11.7-14.9 [facility] RBC Auto (Bld) [#/Vol]Ordere d By: Michelle Barrera on 12-21-2024 RBC (Bld) [#/Vol] 2.04 10*6/uL Low 4.6-6.2 [facility] RBC Auto (Bld) [#/Vol]Ordere d By: Robe Zavala on 12-21-2024 RBC (Bld) [#/Vol] 2.15 10*6/uL Low 4.6-6.2 [facility] Review by pathologistOrdered By: Robe Zavala on 12-21-2024 Pathologist review Deandre (Unsp spec) [Interp] Reviewed [facility] Serum creatinine measurement (mass/volume)Ordered By: Michelle Barrera on 12-21-2024 Creatinine [Mass/Vol] 1.38 mg/dL High 0.70-1.20 [facility] Serum globulin measurementOr dered By: Michelle Barrera on 12-21-2024 Globulin (S) [Mass/Vol] 2.9 g/dL 2.2-4.2 [facility] Serum glucose measurement (m ass/volume)Ordered By: Michelle Barrera on 12-21-2024 Glucose [Mass/Vol] 94 mg/dL 70-99 [facility] Serum or plasma alanine craig otransferase (ALT) measurementOrdered By: Michelle Barrera on 12-21-2024 ALT [Catalytic activity/Vol] 20 U/L <47 [facility] Serum or plasma albumin megha urement (mass/volume)Ordered By: Michelle Barrera on 12-21-2024 Albumin [Mass/Vol] 3.3 g/dL Low 3.4-4.8 [facility] Serum or plasma alkaline sal sphatase measurementOrdered By: Michelle Barrera on 12-21-2024 ALP [Catalytic activity/Vol] 829 U/L High 40-129 [facility] Serum or plasma alkaline sal sphatase measurementOrdered By: Robe Zavala on 12-21-2024 ALP [Catalytic activity/Vol] 859 U/L High 40-129 [facility] Serum or plasma calcium megha urement (mass/volume)Ordered By: Michelle Barrera on 12-21-2024 Calcium [Mass/Vol] 8.5 mg/dL 7.6-11.0 [facility] Serum or plasma urea nitroge n measurement (mass/volume)Ordered By: Michelle Barrera on 12-21-2024 Urea nitrogen [Mass/Vol] 30 mg/dL High 4-19 [facility] Sodium levelOrdered By: Florentino Barrera on 12-21-2024 Sodium [Moles/Vol] 139 mmol/L 133-145 [facility] Squamous epithelial cells de tection in urine sediment by light microscopyOrdered By: Michelle Barrera on 12-21-2024 Epithelial cells.squamous LM Ql (Urine sed) 0-5 SEEN /hpf 0-5 [facility] Stool Occult Blood iFOBon STOB Normal [facility] Comment on above: Performed By: #### M 100.7900 ####[facility] [address] [place], [address] Stool gastrointestinal hemog lobin detection by immunologic methodOrdered By: Michelle Barrera on 12-21-2024 Lower GI hemoglobin IA Ql (Stl) Positive Abnormal [facility] Tacrolimus (Prograf)on 12-21 Tacrolimus Normal [facility] Comment on above: Result Comment: [facility] HAD THIS DRAWN THIS MORNING IN OUTPATIENT, [place] TOCANCEL PER JASBIR GLORIA, SHE WILL LET KNOW ONE HASALREADY BEEN COLLECTED TODAY. Performed By: #### B RC, BTS, L3380.1000, L300.4310, L503.5510, L100.0100, L300.3900 ####[facility] [address] [place], [address] Total cell countOrdered By: Michelle Barrera on 12-21-2024 Cells counted Molgen (Bld/Tiss) [#] 100 MANUAL DIFF [facility] Total proteinOrdered By: Maria Eugenia Barrera on 12-21-2024 Protein [Mass/Vol] 6.2 g/dL 5.9-8.4 [facility] Total proteinOrdered By: Victor Hugo Zavala on 12-21-2024 Protein [Mass/Vol] 6.3 g/dL 5.9-8.4 [facility] Toxic leukocyte granulation detectionOrdered By: Michelle Barrera on 12-21-2024 Toxic granules LM Ql (Bld) 2+ [facility] Type AND Screenon 12-21-2024 Ab SCREEN GEL Negative Normal [facility] Comment on above: Order Comment: CMV N EG? NNumber of units to transfuse: 2Reason for Ordering Blood: AcuteAre the blood/blood products to be transfused? YIs the patient having/had surgery? NWhen LindsayNY Performed By: #### B RC, BTS, L3380.1000, L300.4310, L503.5510, L100.0100, L300.3900 ####[facility] [address] [place], [address] Urinalysis, Completeon 12-21 EPI,SQUAMOUS 0-5 SEEN Normal 0-5 [facility] Comment on above: Order Comment: CLEAN CATCH Performed By: #### L 400.0001 ####[facility] [address] [place], [address] RBC 0-5 SEEN Normal 0-5 [facility] Comment on above: Order Comment: CLEAN CATCH Performed By: #### L 400.0001 ####[facility] [address] [place], [address] WBC 0-5 SEEN Normal 0-5 [facility] Comment on above: Order Comment: CLEAN CATCH Performed By: #### L 400.0001 ####[facility] [address] [place], [address] BACTERIA 0 SEEN Normal None Seen [facility] Comment on above: Order Comment: CLEAN CATCH Performed By: #### L 400.0001 ####[facility] [address] [place], [place], [id number] Mucus Ql (Urine sed) 0 SEEN Normal [facility] Comment on above: Order Comment: CLEAN CATCH Performed By: #### L 400.0001 ####[facility] [address] [place], [place], [phone] Urine clarityOrdered By: Maria Eugenia Barrera on 12-21-2024 Clarity (U) Clear Clear [facility] Urine color determinationOrd ered By: Michelle Barrera on 12-21-2024 Color (U) Yellow Yellow [facility] Urine glucose detectionOrder ed By: Michelle Barrera on 12-21-2024 Glucose Ql (U) Normal mg/dl Normal [facility] Urine leukocyte esterase det ection by dipstickOrdered By: Michelle Barrera on 12-21-2024 Leukocyte esterase Test strip Ql (U) Negative Negative [facility] Urine pHOrdered By: Michelle hood on 12-21-2024 pH (U) 6.0 [pH] 5.0 - 8.0 [facility] Urine sediment bacteria coun t by microscopy (number/high power field)Ordered By: Michelle Barrera on 12-21-2024 Bacteria LM.HPF (Urine sed) [#/Area] 0 /[HPF] None Seen [facility] Urine specific gravity measu rementOrdered By: Michelle Barrera on 12-21-2024 Specific gravity (U) [Rel density] 1.010 1.002-1.030 [facility] Urine urobilinogen measureme ntOrdered By: Michelle Barrera on 12-21-2024 Urobilinogen Ql (U) Normal mg/dl Normal [facility] Venous blood ammonia measure mentOrdered By: Michelle Barrera on 12-21-2024 Ammonia (P) [Moles/Vol] 11.6 umol/L Low 16-60 [facility] White blood cell (WBC) count Ordered By: Michelle Barrera on 10-22-2025 WBC (Bld) [#/Vol] 1.9 10*3/uL Low 4.4-11.0 [facility] White blood cell (WBC) count Ordered By: Robe Bosejacey on 12-21-2024 WBC (Bld) [#/Vol] 1.4 10*3/uL Critically low 4.4-11.0 [facility] White blood cell countOrdere d By: Michelleiftikhar Barrera on 12-21-2024 White blood cell count 0-5 SEEN /hpf 0-5 [facility] L3400.8500on 12-16-2024 CMV Quant DNA Positive Normal Negative [facility] Comment on above: Order Comment: Test( s) 554200-Laeslbibno (FK506), Bloodwas developed and its performance characteristicsdetermined by [facility]. It has not been cleared or approvedby the Food and Drug Administration. Result Comment: CMV DNA detected.The quantitative range of this assay is 200 to 1 millionIU/mL. Performed By: #### L 501.4700, L3380.1000, L3400.8500, L501.5200, L500.4050, L100.0100, L501.5101, L501.2300 ####[facility] [address] [place], [place], [id number] CMV Quant DNA TNP Normal . [facility] Comment on above: Order Comment: Test( s) 143245-Qdgqpqrjtw (FK506), Bloodwas developed and its performance characteristicsdetermined by [facility]. It has not been cleared or approvedby the Food and Drug Administration. Result Comment: Resu lt Units: log10 IU/mLUnable to calculate result since non-numeric resultobtained for component test. Performed By: #### L 501.4700, L3380.1000, L3400.8500, L501.5200, L500.4050, L100.0100, L501.5101, L501.2300 ####[facility] [address] [place], [place], [phone] L501.5101on 12-16-2024 GGTP 30 IU/L Normal 0-65 [facility] Comment on above: Order Comment: Test( s) [id number]-Knhnbiqvnt (FK506), Bloodwas developed and its performance characteristicsdetermined by [employer]. It has not been cleared or approvedby the Food and Drug Administration. Result Comment: Perf ormed at: [facility] [address] [place], [place] [id number] Director: Red Graham PhD, Phone: [phone] at: - Lab[address] [id number] Director: Sergio Machado MD, Phone: [phone] Performed By: #### L 501.4700, L3380.1000, L3400.8500, L501.5200, L500.4050, L100.0100, L501.5101, L501.2300 ####[facility] [address] [facility] [place], [address] Tacrolimus (Prograf)on 12-16 Tacrolimus (Bld) [Mass/Vol] 5.5 ng/mL Normal 5.0-20.0 [facility] Comment on above: Order Comment: Test( s) [id number] (FK506), Bloodwas developed and its performance characteristicsdetermined by [facility]. It has not been cleared or approvedby the Food and Drug Administration. Result Comment: Samia et steady state trough concentration forTacrolimus varies based on type of organ transplantimmunosuppressive protocol and other patient specificfactors. Tacrolimus trough concentrations should beinterpreted in conjunction with clinical assessmentsof rejection and tolerability. Values obtained withdifferent assay methods cannot be used interchangeablydue to differences in assay methods and cross-reactivtywith metabolites, nor should correction factors beapplied. Therefore, consistent use of one assay forindividual patients is recommended.Detection Limit = 0.5 ng/mLPerformed by LC-MS/MS technology. Performed By: #### L 501.4700, L3380.1000, L3400.8500, L501.5200, L500.4050, L100.0100, L501.5101, L501.2300 ####[facility] [address] [place], [place], [phone] Absolute lymphocyte counton 12-14-2024 Lymphocytes Auto (Unsp spec) [#/Vol] 0.60 10*3/uL Low 0.83-4.51 [facility] Anion gap in Serum or Plasma on 12-14-2024 Anion gap [Moles/Vol] 9 mmol/L - [facility] BUN/creatinine ratioon 12-14 Urea nitrogen/Creatinine [Mass ratio] 23.6 mg/mg High 12-19 [facility] Bilirubin directon Bilirubin.direct [Mass/Vol] 0.11 mg/dL 0.00-0.30 [facility] Bilirubin, Directon 12-15-19 25 Bilirubin.direct [Mass/Vol] 0.11 mg/dL Normal 0.00-0.30 [facility] Comment on above: Performed By: #### L 501.4700, L3380.1000, L3400.8500, L501.5200, L500.4050, L100.0100, L501.5101, L501.2300 ####[facility] [address] [place], [place], [phone] Bilirubin, totalon Bilirubin [Mass/Vol] mg/dL 0.00-1.30 [facility] Blood band neutrophil count as percentage of total leukocyteson 12-14-2024 Band form neutrophils/100 WBC (Bld) 13 % High 0-5 [facility] Blood lymphocytes/100 leukoc yteson 12-14-2024 Lymphocytes/100 WBC (Bld) 19 % 19-41 [facility] Blood metamyelocytes/100 susy kocyteson 12-14-2024 Metamyelocytes/100 WBC (Bld) 1 % 0-1 [facility] Blood monocytes/100 leukocyt eson 12-14-2024 Monocytes/100 WBC (Bld) 12 % High 0-10 [facility] Blood segmented neutrophils/ 100 leukocyteson 12-14-2024 Segmented neutrophils/100 WBC (Bld) 55 % 47-70 [facility] Carbon dioxide, total [Moles /volume] in Central venous bloodon 12-14-2024 CO2 [Moles/Vol] 24.0 mmol/L 21.0-32.0 [facility] Chloride assayon 12-14-2024 Chloride [Moles/Vol] 107 mmol/L 98-108 [facility] Comprehensive Metabolic Prof ilon 12-14-2024 Albumin [Mass/Vol] 3.5 g/dL Normal 3.4-4.8 [facility] Comment on above: Performed By: #### L 501.4700, L3380.1000, L3400.8500, L501.5200, L500.4050, L100.0100, L501.5101, L501.2300 ####[facility] [address] [place], [place], [phone] Albumin/Globulin [Mass ratio] 1.2 {ratio} Normal 0.9-2.4 [facility] Comment on above: Performed By: #### L 501.4700, L3380.1000, L3400.8500, L501.5200, L500.4050, L100.0100, L501.5101, L501.2300 ####[facility] [address] [place], [place], [phone] ALK PHOS 741 U/L High 40-129 [facility] Comment on above: Performed By: #### L 501.4700, L3380.1000, L3400.8500, L501.5200, L500.4050, L100.0100, L501.5101, L501.2300 ####[facility] [address] [place], [place], [phone] ALT [Catalytic activity/Vol] 12 U/L Normal <=46 [facility] Comment on above: Performed By: #### L 501.4700, L3380.1000, L3400.8500, L501.5200, L500.4050, L100.0100, L501.5101, L501.2300 ####[facility] [address] [place], [address] AST [Catalytic activity/Vol] 22 U/L Normal <=37 [facility] Comment on above: Performed By: #### L 501.4700, L3380.1000, L3400.8500, L501.5200, L500.4050, L100.0100, L501.5101, L501.2300 ####[facility] [address] [place], [address] BUN/CRE 23.6 RATIO High 10-20 [facility] Comment on above: Performed By: #### L 501.4700, L3380.1000, L3400.8500, L501.5200, L500.4050, L100.0100, L501.5101, L501.2300 ####[facility] [address] [place], [address] Calcium [Mass/Vol] 8.9 mg/dL Normal 7.6-11.0 [facility] Comment on above: Performed By: #### L 501.4700, L3380.1000, L3400.8500, L501.5200, L500.4050, L100.0100, L501.5101, L501.2300 ####[facility] [address] [place], [address] Chloride [Moles/Vol] 107 mmol/L Normal 98-108 [facility] Comment on above: Performed By: #### L 501.4700, L3380.1000, L3400.8500, L501.5200, L500.4050, L100.0100, L501.5101, L501.2300 ####[facility] [address] [place], [address] CO2 [Moles/Vol] 24.0 mmol/L Normal 21.0-32.0 [facility] Comment on above: Performed By: #### L 501.4700, L3380.1000, L3400.8500, L501.5200, L500.4050, L100.0100, L501.5101, L501.2300 ####[facility] [address] [place], [place], [phone] Creatinine [Mass/Vol] 1.13 mg/dL Normal 0.70-1.20 [facility] Comment on above: Performed By: #### L 501.4700, L3380.1000, L3400.8500, L501.5200, L500.4050, L100.0100, L501.5101, L501.2300 ####[facility] [address] [place], [place], [phone] GAP 9 Normal 5-15 [facility] Comment on above: Performed By: #### L 501.4700, L3380.1000, L3400.8500, L501.5200, L500.4050, L100.0100, L501.5101, L501.2300 ####[facility] [address] [place], [place], [phone] GFR/1.73 sq M.predicted among non-blacks MDRD (S/P/Bld) [Vol rate/Area] 74 mL/min/{1.73_m2} Normal >60 [facility] Comment on above: Result Comment: mL/m in/1.73m2 CKD-EPI Creatinine Equation (2020) Performed By: #### L 501.4700, L3380.1000, L3400.8500, L501.5200, L500.4050, L100.0100, L501.5101, L501.2300 ####[facility] [address] [place], [place], [phone] Globulin (S) [Mass/Vol] 2.9 g/dL Normal 2.2-4.2 [facility] Comment on above: Performed By: #### L 501.4700, L3380.1000, L3400.8500, L501.5200, L500.4050, L100.0100, L501.5101, L501.2300 ####[facility] [address] [place], [address] Glucose [Mass/Vol] 109 mg/dL High 70-99 [facility] Comment on above: Performed By: #### L 501.4700, L3380.1000, L3400.8500, L501.5200, L500.4050, L100.0100, L501.5101, L501.2300 ####[facility] [address] [place], [address] Potassium [Moles/Vol] 4.4 mmol/L Normal 3.3-5.1 [facility] Comment on above: Performed By: #### L 501.4700, L3380.1000, L3400.8500, L501.5200, L500.4050, L100.0100, L501.5101, L501.2300 ####[facility] [address] [place], [address] Sodium [Moles/Vol] 140 mmol/L Normal 133-145 [facility] Comment on above: Performed By: #### L 501.4700, L3380.1000, L3400.8500, L501.5200, L500.4050, L100.0100, L501.5101, L501.2300 ####[facility] [address] [place], [address] T BILI < 0.15 Normal 0.00-1.30 [facility] Comment on above: Performed By: #### L 501.4700, L3380.1000, L3400.8500, L501.5200, L500.4050, L100.0100, L501.5101, L501.2300 ####[facility] [address] [place], [address] T PROT 6.4 g/dL Normal 5.9-8.4 [facility] Comment on above: Performed By: #### L 501.4700, L3380.1000, L3400.8500, L501.5200, L500.4050, L100.0100, L501.5101, L501.2300 ####[facility] [address] [place], [address] Urea nitrogen [Mass/Vol] 27 mg/dL High 4-19 [facility] Comment on above: Performed By: #### L 501.4700, L3380.1000, L3400.8500, L501.5200, L500.4050, L100.0100, L501.5101, L501.2300 ####[facility] [address] [place], [place], [phone]) Cytomegalovirus (CMV) DNA me asurement by PCR (log units/volume)on 12-14-2024 CMV DNA JACKY+probe (P) [Log units/Vol] TNP [facility] Erythrocyte distribution wid th ratioon 12-14-2024 Erythrocyte distribution width (RBC) [Ratio] 16.5 % High 11.6-14.6 [facility] Erythrocyte distribution wid th standard deviationon 12-14-2024 Erythrocyte distribution width (RBC) [Ratio] 56.6 fl High 35.1-43.9 [facility] Erythrocyte morphology asses smenton 12-14-2024 RBC morphology finding Nom (Bld) NORM C+C NORMAL NORM C&C [facility] Gamma glutamyl transferase ( GGT) measurementon 12-14-2024 Amylase [Catalytic activity/Vol] 30 U/L 0-65 [facility] Glomerular filtration rate ( GFR) estimation/1.73 sq m using serum, plasma, or whole bon 12-14-2024 GFR/1.73 sq M.predicted among non-blacks MDRD (S/P/Bld) [Vol rate/Area] 74 mL/min/{1.73_m2} >60 [facility] Hematocrit Auto (Bld) [Volum e fraction]on 12-14-2024 Hematocrit (Bld) [Volume fraction] 20.0 % Low 40-54 [facility] Hemoglobin measurementon Hemoglobin (Bld) [Mass/Vol] 6.1 g/dL Low 13.0-16.5 [facility] MCV (mean corpuscular volume ) determinationon 12-14-2024 MCV (RBC) [Entitic vol] 94.3 fL High 80-94 [facility] Magnesiumon 12-14-2024 Magnesium [Mass/Vol] 2.1 mg/dL Normal 1.5-2.2 [facility] Comment on above: Performed By: #### L 501.4700, L3380.1000, L3400.8500, L501.5200, L500.4050, L100.0100, L501.5101, L501.2300 ####[facility] [address] [place], [place], [phone] Magnesium measurement (mass/ volume)on 12-14-2024 Magnesium (Unsp spec) [Mass/Vol] 2.1 mg/dL 1.5-2.2 [facility] Mean corpuscular hemoglobin (MCH) determinationon 12-14-2024 MCH (RBC) [Entitic mass] 28.8 pg 27.0-32.0 [facility] No Panel Informationon 12-14 22 U/L <38 [facility] Phosphoruson 12-14-2024 Phosphate [Mass/Vol] 3.6 mg/dL Normal 2.7-4.5 [facility] Comment on above: Performed By: #### L 501.4700, L3380.1000, L3400.8500, L501.5200, L500.4050, L100.0100, L501.5101, L501.2300 ####[facility] [address] [place], [place], [phone] Platelet counton 12-14-2024 Platelets (Bld) [#/Vol] 444 10*3/uL 150-450 [facility] Platelet estimateon 12-15-19 25 Platelets LM Ql (Bld) ADEQUATE ADEQ [facility] Potassium measurement (mass/ volume)on 12-14-2024 Potassium (Unsp spec) [Mass/Vol] 4.4 mmol/L 3.3-5.1 [facility] RBC Auto (Bld) [#/Vol]on RBC (Bld) [#/Vol] 2.12 10*6/uL Low 4.6-6.2 [facility] Review by pathologiston 11-30 Pathologist review Deandre (Unsp spec) [Interp] Reviewed [facility] Serum creatinine measurement (mass/volume)on 12-14-2024 Creatinine [Mass/Vol] 1.13 mg/dL 0.70-1.20 [facility] Serum globulin measurementon 12-14-2024 Globulin (S) [Mass/Vol] 2.9 g/dL 2.2-4.2 [facility] Serum glucose measurement (m ass/volume)on 12-14-2024 Glucose [Mass/Vol] 109 mg/dL High 70-99 [facility] Serum or plasma alanine craig otransferase (ALT) measurementon 12-14-2024 ALT [Catalytic activity/Vol] 12 U/L <47 [facility] Serum or plasma albumin megha urement (mass/volume)on 12-14-2024 Albumin [Mass/Vol] 3.5 g/dL 3.4-4.8 [facility] Serum or plasma albumin/glob ulin mass ratioon 12-14-2024 Albumin/Globulin [Mass ratio] 1.2 {ratio} 0.9-2.4 [facility] Serum or plasma alkaline sal sphatase measurementon 12-14-2024 ALP [Catalytic activity/Vol] 741 U/L High 40-129 [facility] Serum or plasma calcium megha urement (mass/volume)on 12-14-2024 Calcium [Mass/Vol] 8.9 mg/dL 7.6-11.0 [facility] Serum or plasma urea nitroge n measurement (mass/volume)on 12-14-2024 Urea nitrogen [Mass/Vol] 27 mg/dL High 4-19 [facility] Sodium levelon 12-14-2024 Sodium [Moles/Vol] 140 mmol/L 133-145 [facility] Total cell counton Cells counted Mol[employer] (Bld/Tiss) [#] 100 MANUAL DIFF [facility] Total proteinon 12-14-2024 Protein [Mass/Vol] 6.4 g/dL 5.9-8.4 [facility] White blood cell (WBC) count on 12-14-2024 WBC (Bld) [#/Vol] 2.9 10*3/uL Low 4.4-11.0 [facility] L3400.8500on 12-11-2024 CMV Quant DNA Positive Normal Negative [facility] Comment on above: Order Comment: Test( s) [id number]-Ckhnlcvebd (FK506), Bloodwas developed and its performance characteristicsdetermined by [facility]. It has not been cleared or approvedby the Food and Drug Administration. Result Comment: CMV DNA detected.The quantitative range of this assay is 200 to 1 millionIU/mL. Performed By: #### L 100.0100, L501.5101, L501.4700, L501.2300, L3400.8500, L501.5200, L3380.1000 ####[facility] [address] [place], [place], [phone] CMV Quant DNA TNP Normal . [facility] Comment on above: Order Comment: Test( s) [id number]-Vwelaoenoa (FK506), Bloodwas developed and its performance characteristicsdetermined by [facility]. It has not been cleared or approvedby the Food and Drug Administration. Result Comment: Resu lt Units: log10 IU/mLUnable to calculate result since non-numeric resultobtained for component test. Performed By: #### L 100.0100, L501.5101, L501.4700, L501.2300, L3400.8500, L501.5200, L3380.1000 ####[facility] [address] [place], [place], [address] L501.5101on 12-11-2024 GGTP 32 IU/L Normal 0-65 [facility] Comment on above: Order Comment: Test( s) [id number]-Bgiloobghd (FK506), Bloodwas developed and its performance characteristicsdetermined by [facility]. It has not been cleared or approvedby the Food and Drug Administration. Result Comment: Perf ormed at: [facility] [place], [place] [id number] Director: Red Graham PhD, Phone: [phone] at: [facility] [address] [id number] Director: Sergio Machado MD, Phone: [phone] Performed By: #### L 100.0100, L501.5101, L501.4700, L501.2300, L3400.8500, L501.5200, L3380.1000 ####[facility] [address] [place], [address] Tacrolimus (Prograf)on 12-11 Tacrolimus (Bld) [Mass/Vol] 4.6 ng/mL Low 5.0-20.0 [facility] Comment on above: Order Comment: Test( s) [id number]-Atzipbtgxo (FK506), Bloodwas developed and its performance characteristicsdetermined by [facility]. It has not been cleared or approvedby the Food and Drug Administration. Result Comment: Targ et steady state trough concentration forTacrolimus varies based on type of organ transplantimmunosuppressive protocol and other patient specificfactors. Tacrolimus trough concentrations should beinterpreted in conjunction with clinical assessmentsof rejection and tolerability. Values obtained withdifferent assay methods cannot be used interchangeablydue to differences in assay methods and cross-reactivtywith metabolites, nor should correction factors beapplied. Therefore, consistent use of one assay forindividual patients is recommended.Detection Limit = 0.5 ng/mLPerformed by LC-MS/MS technology. Performed By: #### L 100.0100, L501.5101, L501.4700, L501.2300, L3400.8500, L501.5200, L3380.1000 ####[facility] [address] [place], [address] Carcinoembryonic Antigenon 1 CEA 1.6 ng/mL Normal 0.0-4.7 [facility] Comment on above: Result Comment: Nons mokers <3.9 Smokers <5.6[employer] Electrochemiluminescence Immunoassay(ECLIA)Values obtained with different assay methods or kitscannot be used interchangeably. Results cannot beinterpreted as absolute evidence of the presence orabsence of malignant disease.Performed at: [address] [id number] Director: Red Graham PhD, Phone: [phone] Performed By: #### L 503.6550, L503.6030, L100.9950, L3100.2300 ####[facility] [address] [place], [place], [phone] Bilirubin, Directon 12-08-19 Bilirubin.direct [Mass/Vol] 0.11 mg/dL Normal 0.00-0.30 [facility] Comment on above: Performed By: #### L 100.0100, L501.5101, L501.4700, L501.2300, L3400.8500, L501.5200, L3380.1000 ####[facility] [address] [facility] [address] [place], [place], [phone] Blood basophils/100 leukocyt eson 12-07-2024 Basophils/100 WBC (Bld) 2 % High 0-1 [facility] Blood polychromasia detectio n by light microscopyon 12-07-2024 Polychromasia LM Ql (Bld) 1+ [facility] CBC W/Diff, Automatedon Absolute Lymph 0.61 X10 3/uL Low 0.83-4.51 [facility] Comment on above: Order Comment: GURVINDER SEND CBCD RESULTS TO DR. ZAVALA Performed By: #### L 100.0100, L501.5101, L501.4700, L501.2300, L3400.8500, L501.5200, L3380.1000 ####[facility] [address] [facility] [address] [place], [place], [phone]) Absolute Neut 1.2 X10 3/uL Low 2.0-7.7 [facility] Comment on above: Order Comment: GURVINDER SEND CBCD RESULTS TO DR. ZAVALA Performed By: #### L 100.0100, L501.5101, L501.4700, L501.2300, L3400.8500, L501.5200, L3380.1000 ####[facility] [address] [place], [address] Dohle bodies detectionon Dohle body LM Ql (Bld) 2+ [facility] Ferritinon 12-07-2024 Ferritin [Mass/Vol] 32 ng/mL Low 37-417 [facility] Comment on above: Performed By: #### L 503.6550, L503.6030, L100.9950, L3100.2300 ####[facility] [address] [place], [address] Iron measurement (mass/mass) Ordered By: Robe Zavala on 12-07-2024 Iron (Unsp spec) [Mass/Mass] 13 ug/dL Low 65-175 [facility] Iron+Iron Binding Capacityon 12-07-2024 Iron [Mass/Vol] 13 ug/dL Low 65-175 [facility] Comment on above: Performed By: #### L 503.6550, L503.6030, L100.9950, L3100.2300 ####[facility] [address] [place], [address] IRON SATURATION 4.7 Low 9-55 [facility] Comment on above: Performed By: #### L 503.6550, L503.6030, L100.9950, L3100.2300 ####[facility] [address] [place], [address] TIBC 269 ug/dL Normal 250-450 [facility] Comment on above: Performed By: #### L 503.6550, L503.6030, L100.9950, L3100.2300 ####[facility] [address] [place], [address] UIBC 256 ug/dL Normal 228-428 [facility] Comment on above: Performed By: #### L 503.6550, L503.6030, L100.9950, L3100.2300 ####[facility] [address] [place], [address] Magnesiumon 12-07-2024 Magnesium [Mass/Vol] 1.8 mg/dL Normal 1.5-2.2 [facility] Comment on above: Performed By: #### L 100.0100, L501.5101, L501.4700, L501.2300, L3400.8500, L501.5200, L3380.1000 ####[facility] [address] [place], [place], [address] No Panel InformationOrdered By: Robe Zavala on 12-07-2024 256 ug/dL 228-428 [facility] Ovalocyte detectionon 2024 Ovalocytes LM Ql (Bld) 1+ [facility] Phosphoruson 12-07-2024 Phosphate [Mass/Vol] 3.0 mg/dL Normal 2.7-4.5 [facility] Comment on above: Performed By: #### L 100.0100, L501.5101, L501.4700, L501.2300, L3400.8500, L501.5200, L3380.1000 ####[facility] [address] [place], [address] Retic Panelon 12-07-2024 IM RET FRACTION 7.90 Normal 3.00-15.90 [facility] Comment on above: Performed By: #### L 503.6550, L503.6030, L100.9950, L3100.2300 ####[facility] [address] [place], [address] RET-HE 23.8 pg Low 30-35 [facility] Comment on above: Performed By: #### L 503.6550, L503.6030, L100.9950, L3100.2300 ####[facility] [address] [place], [address] Retic Count 1.40 Normal 0.5-1.5 [facility] Comment on above: Performed By: #### L 503.6550, L503.6030, L100.9950, L3100.2300 ####[facility] [address] [place], [address] Reticulocyte hemoglobin equi valent (RET-He) measurementOrdered By: Robe Zavala on 12-07-2024 Hemoglobin (Reticulocytes) [Entitic mass] 23.8 pg Low 30-35 [facility] Reticulocytes Auto (Bld) [#/ Vol]Ordered By: Robe Zavala on 12-07-2024 Reticulocytes/100 RBC (Bld) 1.40 % 0.5-1.5 [facility] Serum or plasma carcinoembry onic antigen measurement (mass/volume)Ordered By: [facility] on 12-07-2024 Carcinoembryonic Ag [Mass/Vol] 1.6 ng/mL 0.0-4.7 [facility] Serum or plasma ferritin timmy surement (mass/volume)Ordered By: [facility] Zavala on 12-07-2024 Ferritin [Mass/Vol] 32 ng/mL Low 37-417 [facility] Serum or plasma iron saturat ion measurement (mass fraction)Ordered By: [facility] Z[facility]ala on 12-07-2024 Iron saturation [Mass fraction] 4.7 % Low 9-55 [facility] L3400.8500on 12-04-2024 CMV Quant DNA Negative Normal Negative [facility] Comment on above: Order Comment: Test( s) [id number]-Ghvsewpugz (FK506), Bloodwas developed and its performance characteristicsdetermined by [facility]. It has not been cleared or approvedby the Food and Drug Administration. Result Comment: No C MV DNA detected.The quantitative range of this assay is 200 to 1 millionIU/mL. Performed By: #### L 3380.1000, L501.2300, L100.0100, L501.4700, L3400.8500, L501.5101, L500.4050, L501.5200 ####[facility] [address] [place], [address] CMV Quant DNA TNP Normal . [facility] Comment on above: Order Comment: Test( s) [id number]-Uqstbnvoto (FK506), Bloodwas developed and its performance characteristicsdetermined by [facility]. It has not been cleared or approvedby the Food and Drug Administration. Result Comment: Resu lt Units: log10 IU/mLUnable to calculate result since non-numeric resultobtained for component test. Performed By: #### L 3380.1000, L501.2300, L100.0100, L501.4700, L3400.8500, L501.5101, L500.4050, L501.5200 ####[facility] [address] [place], [place], [address] L501.5101on 12-04-2024 GGTP 29 IU/L Normal 0-65 [facility] Comment on above: Order Comment: Test( s) [id number]-Rfgbydbgfy (FK506), Bloodwas developed and its performance characteristicsdetermined by [facility]. It has not been cleared or approvedby the Food and Drug Administration. Result Comment: Perf ormed at: [address] [id number] Director: Red Graham PhD, Phone: [phone] at: [address] [id number] Director: Sergio Machado MD, Phone: [phone] Performed By: #### L 3380.1000, L501.2300, L100.0100, L501.4700, L3400.8500, L501.5101, L500.4050, L501.5200 ####[facility] [address] [place], [address] Tacrolimus (Prograf)on 12-04 Tacrolimus (Bld) [Mass/Vol] 4.9 ng/mL Low 5.0-20.0 [facility] Comment on above: Order Comment: Test( s) [id number] (FK506), Bloodwas developed and its performance characteristicsdetermined by [facility]. It has not been cleared or approvedby the Food and Drug Administration. Result Comment: Ubaldog et steady state trough concentration forTacrolimus varies based on type of organ transplantimmunosuppressive protocol and other patient specificfactors. Tacrolimus trough concentrations should beinterpreted in conjunction with clinical assessmentsof rejection and tolerability. Values obtained withdifferent assay methods cannot be used interchangeablydue to differences in assay methods and cross-reactivtywith metabolites, nor should correction factors beapplied. Therefore, consistent use of one assay forindividual patients is recommended.Detection Limit = 0.5 ng/mLPerformed by LC-MS/MS technology. Performed By: #### L 3380.1000, L501.2300, L100.0100, L501.4700, L3400.8500, L501.5101, L500.4050, L501.5200 ####[facility] [address] [place], [address] Absolute lymphocyte counton 11-30-2024 Lymphocytes Auto (Unsp spec) [#/Vol] 1.13 10*3/uL 0.83-4.51 [facility] Absolute neutrophil counton 11-30-2024 Neutrophils (Bld) [#/Vol] 1.0 10*3/uL Low 2.0-7.7 [facility] Anion gap in Serum or Plasma on 11-30-2024 Anion gap [Moles/Vol] 11 mmol/L 5- [facility] BUN/creatinine ratioon 11-30 Urea nitrogen/Creatinine [Mass ratio] 22.3 mg/mg High 12-19 [facility] Bilirubin directon Bilirubin.direct [Mass/Vol] 0.39 mg/dL High 0.00-0.30 [facility] Comment on above: Performed By: #### L 3380.1000, L501.2300, L100.0100, L501.4700, L3400.8500, L501.5101, L500.4050, L501.5200 ####[facility] [address] [place], [place], [id number] Bilirubin, totalon Bilirubin [Mass/Vol] 0.25 mg/dL Normal 0.00-1.30 [facility] Comment on above: Performed By: #### L 3380.1000, L501.2300, L100.0100, L501.4700, L3400.8500, L501.5101, L500.4050, L501.5200 ####[facility] [address] [place], [place], [phone] Blood band neutrophil count as percentage of total leukocyteson 11-30-2024 Band form neutrophils/100 WBC (Bld) 3 % 0-5 [facility] Blood lymphocytes/100 leukoc yteson 11-30-2024 Lymphocytes/100 WBC (Bld) 46 % High 19-41 [facility] Blood metamyelocytes/100 susy kocyteson 11-30-2024 Metamyelocytes/100 WBC (Bld) 5 % High 0-1 [facility] Blood monocytes/100 leukocyt eson 11-30-2024 Monocytes/100 WBC (Bld) 8 % 0-10 [facility] Blood segmented neutrophils/ 100 leukocyteson 11-30-2024 Segmented neutrophils/100 WBC (Bld) 37 % Low 47-70 [facility] CBC W/Diff, Automatedon Absolute Lymph 1.13 X10 3/uL Normal 0.83-4.51 [facility] Comment on above: Performed By: #### L 3380.1000, L501.2300, L100.0100, L501.4700, L3400.8500, L501.5101, L500.4050, L501.5200 ####[facility] [address] [place], [place], [phone] Absolute Neut 1.0 X10 3/uL Low 2.0-7.7 [facility] Comment on above: Performed By: #### L 3380.1000, L501.2300, L100.0100, L501.4700, L3400.8500, L501.5101, L500.4050, L501.5200 ####[facility] [address] [place], [place], [phone] Carbon dioxide, total [Moles /volume] in Central venous bloodon 11-30-2024 CO2 [Moles/Vol] 21.9 mmol/L Normal 21.0-32.0 [facility] Comment on above: Performed By: #### L 3380.1000, L501.2300, L100.0100, L501.4700, L3400.8500, L501.5101, L500.4050, L501.5200 ####[facility] [address] [place], [place], [phone] Chloride assayon 11-30-2024 Chloride [Moles/Vol] 108 mmol/L Normal 98-108 [facility] Comment on above: Performed By: #### L 3380.1000, L501.2300, L100.0100, L501.4700, L3400.8500, L501.5101, L500.4050, L501.5200 ####[facility] [address] [place], [place], [phone] Comprehensive Metabolic Prof ilon 11-30-2024 ALK PHOS 470 U/L High 40-129 [facility] Comment on above: Performed By: #### L 3380.1000, L501.2300, L100.0100, L501.4700, L3400.8500, L501.5101, L500.4050, L501.5200 ####[facility] [address] [place], [place], [phone] BUN/CRE 22.3 RATIO High 10-20 [facility] Comment on above: Performed By: #### L 3380.1000, L501.2300, L100.0100, L501.4700, L3400.8500, L501.5101, L500.4050, L501.5200 ####[facility] [address] [place], [address] GAP 11 Normal 5-15 [facility] Comment on above: Performed By: #### L 3380.1000, L501.2300, L100.0100, L501.4700, L3400.8500, L501.5101, L500.4050, L501.5200 ####[facility] [address] [place], [address] Potassium [Moles/Vol] 4.4 mmol/L Normal 3.3-5.1 [facility] Comment on above: Performed By: #### L 3380.1000, L501.2300, L100.0100, L501.4700, L3400.8500, L501.5101, L500.4050, L501.5200 ####[facility] [address] [place], [address] T PROT 6.7 g/dL Normal 5.9-8.4 [facility] Comment on above: Performed By: #### L 3380.1000, L501.2300, L100.0100, L501.4700, L3400.8500, L501.5101, L500.4050, L501.5200 ####[facility] [address] [place], [address] AST [Catalytic activity/Vol] 19 U/L Normal <=37 [facility] Comment on above: Performed By: #### L 3380.1000, L501.2300, L100.0100, L501.4700, L3400.8500, L501.5101, L500.4050, L501.5200 ####[facility] [address] [place], [address] Dohle bodies detectionon Dohle body LM Ql (Bld) 2+ [facility] Erythrocyte distribution wid th ratioon 11-30-2024 Erythrocyte distribution width (RBC) [Ratio] 16.7 % High 11.6-14.6 [facility] Erythrocyte distribution wid th standard deviationon 11-30-2024 Erythrocyte distribution width (RBC) [Ratio] 59.2 fl High 35.1-43.9 [facility] Glomerular filtration rate ( GFR) estimation/1.73 sq m using serum, plasma, or whole bon 11-30-2024 GFR/1.73 sq M.predicted among non-blacks MDRD (S/P/Bld) [Vol rate/Area] 76 mL/min/{1.73_m2} Normal >60 [facility] Comment on above: mL/min/1.73m2 CKD-EP I Creatinine Equation (2020) Result Comment: mL/m in/1.73m2 CKD-EPI Creatinine Equation (2020) Performed By: #### L 3380.1000, L501.2300, L100.0100, L501.4700, L3400.8500, L501.5101, L500.4050, L501.5200 ####[facility] [address] [place], [address] Hematocrit Auto (Bld) [Volum e fraction]on 11-30-2024 Hematocrit (Bld) [Volume fraction] 23.6 % Low 40-54 [facility] Hemoglobin measurementon Hemoglobin (Bld) [Mass/Vol] 7.3 g/dL Low 13.0-16.5 [facility] L3410.9992on 11-30-2024 [facility] Misc. COMMENT Normal . [facility] Comment on above: Order Comment: [id number] 4PEth LAV WB RMT Result Comment: Test Ordered: [id number] Phosphatidylethanol (PEth)PHOSPHATIDYLETHANOL Negative MX Reference Range: .Phosphatidylethanol (PEth) Negative ng/mL MX Reference Range: .Analyzed compound: PEth 16:0/18:1. 1-sdnkodwjb-4-igvgge-mk-oqpjlav-3-phosphoethanol.Analysis performed by Liquid Chromatography withTandem Mass Spectrometry (LC/MS/MS).Detection limit: 20 ng/mLPEth levels in excess of 20 ng/mL are considered evidenceof moderate to heavy ethanol consumption. However,the [facility] (CSAT) advisescaution in interpretation and use of biomarkers aloneto assess alcohol use. Results should be interpretedin the context of all available clinical and behavioralinformation.Reference: Substance Abuse and Mental Health Services Administration (2012). The Role of Biomarkers in the Treatment of Alcohol Use Disorders, 2012 Revision. Advisory, Volume 11, Issue 2.This test was developed and its performance characteristicsdetermined by [facility]. It has not been cleared or approvedby the Food and Drug Administration.Performed at: [facility] [place] [id number] Director: Clau Abdalla [facility], Phone: [phone] at: [facility] [address] [id number] Director: Red Graham PhD, Phone: [phone] Performed By: #### L 500.4050, L3410.9992, L501.2300, L3890.6102, L501.5200, L3410.9994, L501.4700, L500.4100, L100.0100, L501.5101, L3380.1000, L3400.8500 ####[facility] [address] [facility] [place], [place], [phone] MCV (mean corpuscular volume ) determinationon 11-30-2024 MCV (RBC) [Entitic vol] 96.3 fL High 80-94 [facility] Magnesiumon 11-30-2024 Magnesium [Mass/Vol] 2.1 mg/dL Normal 1.5-2.2 [facility] Comment on above: Performed By: #### L 3380.1000, L501.2300, L100.0100, L501.4700, L3400.8500, L501.5101, L500.4050, L501.5200 ####[facility] [address] [place], [place], [phone] Magnesium measurement (mass/ volume)on 11-30-2024 Magnesium (Unsp spec) [Mass/Vol] 2.1 mg/dL 1.5-2.2 [facility] Mean corpuscular hemoglobin (MCH) determinationon 11-30-2024 MCH (RBC) [Entitic mass] 29.8 pg 27.0-32.0 [facility] Mean corpuscular hemoglobin concentration (MCHC) determinationon 11-30-2024 MCHC (RBC) [Mass/Vol] 30.9 g/dL Low 32-36 [facility] Mean platelet volume determi nationon 11-30-2024 Platelet mean volume (Bld) [Entitic vol] 9.8 fL 6.2-12.0 [facility] Myelocyte %on 11-30-2024 Myelocytes/100 WBC (Bld) 1 % High 0-0 [facility] Ovalocyte detectionon 2024 Ovalocytes LM Ql (Bld) 1+ [facility] Phosphoruson 11-30-2024 Phosphate [Mass/Vol] 3.2 mg/dL Normal 2.7-4.5 [facility] Comment on above: Performed By: #### L 3380.1000, L501.2300, L100.0100, L501.4700, L3400.8500, L501.5101, L500.4050, L501.5200 ####[facility] [address] [place], [place], [address] Platelet counton 11-30-2024 Platelets (Bld) [#/Vol] 480 10*3/uL High 150-450 [facility] Potassium measurement (mass/ volume)on 11-30-2024 Potassium (Unsp spec) [Mass/Vol] 4.4 mmol/L 3.3-5.1 [facility] RBC Auto (Bld) [#/Vol]on RBC (Bld) [#/Vol] 2.45 10*6/uL Low 4.6-6.2 [facility] Serum creatinine measurement (mass/volume)on 11-30-2024 Creatinine [Mass/Vol] 1.11 mg/dL Normal 0.70-1.20 [facility] Comment on above: Performed By: #### L 3380.1000, L501.2300, L100.0100, L501.4700, L3400.8500, L501.5101, L500.4050, L501.5200 ####[facility] [address] [place], [address] Serum globulin measurementon 11-30-2024 Globulin (S) [Mass/Vol] 2.9 g/dL Normal 2.2-4.2 [facility] Comment on above: Performed By: #### L 3380.1000, L501.2300, L100.0100, L501.4700, L3400.8500, L501.5101, L500.4050, L501.5200 ####[facility] [address] [place], [address] Serum glucose measurement (m ass/volume)on 11-30-2024 Glucose [Mass/Vol] 62 mg/dL Low 70-99 [facility] Comment on above: Performed By: #### L 3380.1000, L501.2300, L100.0100, L501.4700, L3400.8500, L501.5101, L500.4050, L501.5200 ####[facility] [address] [place], [address] Serum or plasma alanine craig otransferase (ALT) measurementon 11-30-2024 ALT [Catalytic activity/Vol] 7 U/L Normal <=46 [facility] Comment on above: Performed By: #### L 3380.1000, L501.2300, L100.0100, L501.4700, L3400.8500, L501.5101, L500.4050, L501.5200 ####[facility] [address] [facility] [place], [address] Serum or plasma albumin megah urement (mass/volume)on 11-30-2024 Albumin [Mass/Vol] 3.7 g/dL Normal 3.4-4.8 [facility] Comment on above: Performed By: #### L 3380.1000, L501.2300, L100.0100, L501.4700, L3400.8500, L501.5101, L500.4050, L501.5200 ####[facility] [address] [place], [address] Serum or plasma albumin/glob ulin mass ratioon 11-30-2024 Albumin/Globulin [Mass ratio] 1.3 {ratio} Normal 0.9-2.4 [facility] Comment on above: Performed By: #### L 3380.1000, L501.2300, L100.0100, L501.4700, L3400.8500, L501.5101, L500.4050, L501.5200 ####[facility] [address] [place], [place], [phone] Serum or plasma alkaline sal sphatase measurementon 11-30-2024 ALP [Catalytic activity/Vol] 470 U/L High 40-129 [facility] Serum or plasma calcium megha urement (mass/volume)on 11-30-2024 Calcium [Mass/Vol] 9.3 mg/dL Normal 7.6-11.0 [facility] Comment on above: Performed By: #### L 3380.1000, L501.2300, L100.0100, L501.4700, L3400.8500, L501.5101, L500.4050, L501.5200 ####[facility] [address] [place], [place], [phone]) Serum or plasma urea nitroge n measurement (mass/volume)on 11-30-2024 Urea nitrogen [Mass/Vol] 25 mg/dL High 4-19 [facility] Comment on above: Performed By: #### L 3380.1000, L501.2300, L100.0100, L501.4700, L3400.8500, L501.5101, L500.4050, L501.5200 ####[facility] [address] [place], [place], [phone] Sodium levelon 11-30-2024 Sodium [Moles/Vol] 141 mmol/L Normal 133-145 [facility] Comment on above: Performed By: #### L 3380.1000, L501.2300, L100.0100, L501.4700, L3400.8500, L501.5101, L500.4050, L501.5200 ####[facility] [address] [place], [address] Total cell counton Cells counted Mol[employer] (Bld/Tiss) [#] 100 MANUAL DIFF [facility] Total proteinon 11-30-2024 Protein [Mass/Vol] 6.7 g/dL 5.9-8.4 [facility] White blood cell (WBC) count on 11-30-2024 WBC (Bld) [#/Vol] 2.5 10*3/uL Low 4.4-11.0 [facility] L3400.8500on 11-26-2024 CMV Quant DNA Positive Normal Negative [facility] Comment on above: Order Comment: Test( s) [id number]-Mzrtqpnxbq (FK506), Bloodwas developed and its performance characteristicsdetermined by [facility]. It has not been cleared or approvedby the Food and Drug Administration. Result Comment: CMV DNA detected.The quantitative range of this assay is 200 to 1 millionIU/mL. Performed By: #### L 500.4050, L3410.9992, L501.2300, L3890.6102, L501.5200, L3410.9994, L501.4700, L500.4100, L100.0100, L501.5101, L3380.1000, L3400.8500 ####[facility] [address] [place], [place], [phone] CMV Quant DNA TNP Normal . [facility] Comment on above: Order Comment: Test( s) [id number]-Uyksdkhseh (FK506), Bloodwas developed and its performance characteristicsdetermined by [facility]. It has not been cleared or approvedby the Food and Drug Administration. Result Comment: Resu lt Units: log10 IU/mLUnable to calculate result since non-numeric resultobtained for component test. Performed By: #### L 500.4050, L3410.9992, L501.2300, L3890.6102, L501.5200, L3410.9994, L501.4700, L500.4100, L100.0100, L501.5101, L3380.1000, L3400.8500 ####[facility] [address] [facility] [place], [place], [id number] L501.5101on 11-26-2024 GGTP 45 IU/L Normal 0-65 [facility] Comment on above: Order Comment: Test( s) 308543-Alhtcqdgoh (FK506), Bloodwas developed and its performance characteristicsdetermined by [facility]. It has not been cleared or approvedby the Food and Drug Administration. Result Comment: Perf ormed at: [facility] [address] [id number] Director: Red Graham PhD, Phone: [phone] at: [facility] [address] [id number] Director: Sergio Machado MD, Phone: [phone] Performed By: #### L 500.4050, L3410.9992, L501.2300, L3890.6102, L501.5200, L3410.9994, L501.4700, L500.4100, L100.0100, L501.5101, L3380.1000, L3400.8500 ####[facility] [address] [facility] [place], [address] Tacrolimus (Prograf)on 11-26 Tacrolimus (Bld) [Mass/Vol] 4.9 ng/mL Low 5.0-20.0 [facility] Comment on above: Order Comment: Test( s) 236328-Cbezgvymzo (FK506), Bloodwas developed and its performance characteristicsdetermined by [facility]. It has not been cleared or approvedby the Food and Drug Administration. Result Comment: Ubaldog et steady state trough concentration forTacrolimus varies based on type of organ transplantimmunosuppressive protocol and other patient specificfactors. Tacrolimus trough concentrations should beinterpreted in conjunction with clinical assessmentsof rejection and tolerability. Values obtained withdifferent assay methods cannot be used interchangeablydue to differences in assay methods and cross-reactivtywith metabolites, nor should correction factors beapplied. Therefore, consistent use of one assay forindividual patients is recommended.Detection Limit = 0.5 ng/mLPerformed by LC-MS/MS technology. Performed By: #### L 500.4050, L3410.9992, L501.2300, L3890.6102, L501.5200, L3410.9994, L501.4700, L500.4100, L100.0100, L501.5101, L3380.1000, L3400.8500 ####[facility] [address] [place], [address] CBC W/Diff, Automatedon 11-01 PATH REV Reviewed Normal [facility] Comment on above: Result Comment: SEE REPORT IN PATIENT'S EMR AMENDED REPORT 11/25/24 1132 PATH REV previously reported as: June Performed By: #### L 501.2300, L3380.1000, L3400.8500, L501.5101, L500.4050, L501.4700, L100.0100, L501.5200 ####[facility] [address] [place], [address] L3410.9994on 11-24-2024 [facility] Misc. 2 COMMENT Normal . [facility] Comment on above: Order Comment: SERUM [id number] QUANT Result Comment: Test Ordered: [id number] HBV Real-Time PCR, QuantHBV IU/mL Note: IU/mL CB HBV DNA not detected Reference Range: .log10 HBV IU/mL CB Units of Measure: log10 IU/mL Reference Range: .Unable to calculate result since non-numeric resultobtained for component test.Test Information: Comment CB Reference Range: .The reportable range for this assay is 10 IU/mL to 1billion IU/mL.Performed at: [address] [id number] Director: Red Graham PhD, Phone: [phone] Performed By: #### L 500.4050, L3410.9992, L501.2300, L3890.6102, L501.5200, L3410.9994, L501.4700, L500.4100, L100.0100, L501.5101, L3380.1000, L3400.8500 ####[facility] [address] [place], [address] Absolute lymphocyte counton 11-23-2024 Lymphocytes Auto (Unsp spec) [#/Vol] 1.20 10*3/uL 0.83-4.51 [facility] Absolute neutrophil counton 11-23-2024 Neutrophils (Bld) [#/Vol] 0.9 10*3/uL Low 2.0-7.7 [facility] Anion gap in Serum or Plasma on 11-23-2024 Anion gap [Moles/Vol] 11 mmol/L 5-15 [facility] Comment on above: Previous reported re sult: 11 Edited by: CARLITA on 11/23/24:1145 AMENDED REPORT 11/23/24 1145 GAP previously reported as: 11 BUN/creatinine ratioon 11-23 Urea nitrogen/Creatinine [Mass ratio] 18.5 mg/mg 10- [facility] Comment on above: Previous reported re sult: 19.3 RATIOEdited by: [employer] IncMinda on 11/23/24:1145 AMENDED REPORT 11/23/24 1145 BUN/CRE previously reported as: 19.3 RATIO Bilirubin directon Bilirubin.direct [Mass/Vol] 0.10 mg/dL 0.00-0.30 [facility] Bilirubin, Directon 11-24-19 Bilirubin.direct [Mass/Vol] 0.10 mg/dL Normal 0.00-0.30 [facility] Comment on above: Performed By: #### L 500.4050, L3410.9992, L501.2300, L3890.6102, L501.5200, L3410.9994, L501.4700, L500.4100, L100.0100, L501.5101, L3380.1000, L3400.8500 ####[facility] [address] [place], [address] Bilirubin, totalon Bilirubin [Mass/Vol] 0.20 mg/dL 0.00-1.30 [facility] Comment on above: Previous reported re sult: 0.21 mg/dLEdited by: CARLITA on 11/23/24:1145 AMENDED REPORT 11/23/24 1145 T BILI previously reported as: 0.21 mg/dL Blood band neutrophil count as percentage of total leukocyteson 11-23-2024 Band form neutrophils/100 WBC (Bld) 3 % 0-5 [facility] Blood basophils/100 leukocyt eson 11-23-2024 Basophils/100 WBC (Bld) 2 % High 0-1 [facility] Blood eosinophils/100 leukoc yteson 11-23-2024 Eosinophils/100 WBC (Bld) 1 % 0-5 [facility] Blood lymphocytes/100 leukoc yteson 11-23-2024 Lymphocytes/100 WBC (Bld) 49 % High 19-41 [facility] Blood metamyelocytes/100 susy kocyteson 11-23-2024 Metamyelocytes/100 WBC (Bld) 3 % High 0-1 [facility] Blood monocytes/100 leukocyt eson 11-23-2024 Monocytes/100 WBC (Bld) 7 % 0-10 [facility] Blood segmented neutrophils/ 100 leukocyteson 11-23-2024 Segmented neutrophils/100 WBC (Bld) 35 % Low 47-70 [facility] CBC W/Diff, Automatedon 11-01 REACTIVE LYMPH RARE Normal [facility] Comment on above: Performed By: #### L 500.4050, L3410.9992, L501.2300, L3890.6102, L501.5200, L3410.9994, L501.4700, L500.4100, L100.0100, L501.5101, L3380.1000, L3400.8500 ####[facility] [address] [place], [place], [id number] Calculated very low density lipoprotein (VLDL) cholesterol measurementon 11-23-2024 Calculated very low density lipoprotein (VLDL) cholesterol measurement 18 mg/dL 5-40 [facility] Carbon dioxide, total [Moles /volume] in Central venous bloodon 11-23-2024 CO2 [Moles/Vol] 21.1 mmol/L 21.0-32.0 [facility] Comment on above: Previous reported re sult: 22.5 mmol/LEdited by: AUTOINS on 11/23/24:1145 AMENDED REPORT 11/23/24 1145 CO2 previously reported as: 22.5 mmol/L Chloride assayon 11-23-2024 Chloride [Moles/Vol] 106 mmol/L 98-108 [facility] Comment on above: Previous reported re sult: 105 mmol/LEdited by: [employer] on 11/23/24:1145 AMENDED REPORT 11/23/24 1145 CL previously reported as: 105 mmol/L Comprehensive Metabolic Prof ilon 11-23-2024 Albumin [Mass/Vol] 3.6 g/dL Normal 3.4-4.8 [facility] Comment on above: Result Comment: AMENDED REPORT 11/23/24 1145 ALB previously reported as: 3.7 g/dL Performed By: #### L 500.4050, L3410.9992, L501.2300, L3890.6102, L501.5200, L3410.9994, L501.4700, L500.4100, L100.0100, L501.5101, L3380.1000, L3400.8500 ####[facility] [address] [place], [place], [phone] Albumin/Globulin [Mass ratio] 1.4 {ratio} Normal 0.9-2.4 [facility] Comment on above: Result Comment: AMENDED REPORT 11/23/241144 A/G previously reported as: 1.7 RATIO Performed By: #### L 500.4050, L3410.9992, L501.2300, L3890.6102, L501.5200, L3410.9994, L501.4700, L500.4100, L100.0100, L501.5101, L3380.1000, L3400.8500 ####[facility] [address] [place], [place], [phone] ALK PHOS 400 U/L High 40-129 [facility] Comment on above: Result Comment: AMENDED REPORT 11/23/241144 ALK P previously reported as: 409 H U/L Performed By: #### L 500.4050, L3410.9992, L501.2300, L3890.6102, L501.5200, L3410.9994, L501.4700, L500.4100, L100.0100, L501.5101, L3380.1000, L3400.8500 ####[facility] [address] [place], [address] ALT [Catalytic activity/Vol] 11 U/L Normal <=46 [facility] Comment on above: Result Comment: AMENDED REPORT 11/23/241144 ALT previously reported as: 12 U/L Performed By: #### L 500.4050, L3410.9992, L501.2300, L3890.6102, L501.5200, L3410.9994, L501.4700, L500.4100, L100.0100, L501.5101, L3380.1000, L3400.8500 ####[facility] [address] [place], [place], [phone] AST [Catalytic activity/Vol] 17 U/L Normal <=37 [facility] Comment on above: Performed By: #### L 500.4050, L3410.9992, L501.2300, L3890.6102, L501.5200, L3410.9994, L501.4700, L500.4100, L100.0100, L501.5101, L3380.1000, L3400.8500 ####[facility] [address] [place], [place], [phone](997) Bilirubin [Mass/Vol] 0.20 mg/dL Normal 0.00-1.30 [facility] Comment on above: Result Comment: AMENDED REPORT 11/23/241144 T BILI previously reported as: 0.21 mg/dL Performed By: #### L 500.4050, L3410.9992, L501.2300, L3890.6102, L501.5200, L3410.9994, L501.4700, L500.4100, L100.0100, L501.5101, L3380.1000, L3400.8500 ####[facility] [address] [place], [place], [phone](394) BUN/CRE 18.5 RATIO Normal 10-20 [facility] Comment on above: Result Comment: AMENDED REPORT 11/23/241144 BUN/CRE previously reported as: 19.3 RATIO Performed By: #### L 500.4050, L3410.9992, L501.2300, L3890.6102, L501.5200, L3410.9994, L501.4700, L500.4100, L100.0100, L501.5101, L3380.1000, L3400.8500 ####[facility] [address] [place], [place], [phone](283) Calcium [Mass/Vol] 8.7 mg/dL Normal 7.6-11.0 [facility] Comment on above: Result Comment: AMENDED REPORT 11/23/241144 CA previously reported as: 8.6 mg/dL Performed By: #### L 500.4050, L3410.9992, L501.2300, L3890.6102, L501.5200, L3410.9994, L501.4700, L500.4100, L100.0100, L501.5101, L3380.1000, L3400.8500 ####[facility] [address] [place], [place], [phone](934) Chloride [Moles/Vol] 106 mmol/L Normal 98-108 [facility] Comment on above: Result Comment: AMENDED REPORT 11/23/24 4943 CL previously reported as: 105 mmol/L Performed By: #### L 500.4050, L3410.9992, L501.2300, L3890.6102, L501.5200, L3410.9994, L501.4700, L500.4100, L100.0100, L501.5101, L3380.1000, L3400.8500 ####[facility] [address] [place], [place], [phone](015) CO2 [Moles/Vol] 21.1 mmol/L Normal 21.0-32.0 [facility] Comment on above: Result Comment: AMENDED REPORT 11/23/243 CO2 previously reported as: 22.5 mmol/L Performed By: #### L 500.4050, L3410.9992, L501.2300, L3890.6102, L501.5200, L3410.9994, L501.4700, L500.4100, L100.0100, L501.5101, L3380.1000, L3400.8500 ####[facility] [address] [place], [place], [phone](481) Creatinine [Mass/Vol] 1.12 mg/dL Normal 0.70-1.20 [facility] Comment on above: Result Comment: AMENDED REPORT 11/23/24 9196 CREAT,SERUM previously reported as: 1.06 mg/dL Performed By: #### L 500.4050, L3410.9992, L501.2300, L3890.6102, L501.5200, L3410.9994, L501.4700, L500.4100, L100.0100, L501.5101, L3380.1000, L3400.8500 ####[facility] [address] [place], [place], [phone] GAP 11 Normal 5-15 [facility] Comment on above: Result Comment: AMENDED REPORT 11/23/241144 GAP previously reported as: 11 Performed By: #### L 500.4050, L3410.9992, L501.2300, L3890.6102, L501.5200, L3410.9994, L501.4700, L500.4100, L100.0100, L501.5101, L3380.1000, L3400.8500 ####[facility] [address] [place], [place], [phone] Globulin (S) [Mass/Vol] 2.6 g/dL Normal 2.2-4.2 [facility] Comment on above: Result Comment: AMENDED REPORT 11/23/241144 GLOB previously reported as: 2.1 L g/dL Performed By: #### L 500.4050, L3410.9992, L501.2300, L3890.6102, L501.5200, L3410.9994, L501.4700, L500.4100, L100.0100, L501.5101, L3380.1000, L3400.8500 ####[facility] [address] [place], [place], [phone] Glucose [Mass/Vol] 86 mg/dL Normal 70-99 [facility] Comment on above: Result Comment: AMENDED REPORT 11/23/241144 GLU previously reported as: 89 mg/dL Performed By: #### L 500.4050, L3410.9992, L501.2300, L3890.6102, L501.5200, L3410.9994, L501.4700, L500.4100, L100.0100, L501.5101, L3380.1000, L3400.8500 ####[facility] [address] [place], [place], [phone](834) Potassium [Moles/Vol] 4.5 mmol/L Normal 3.3-5.1 [facility] Comment on above: Result Comment: AMENDED REPORT 11/23/241144 K previously reported as: 4.8 mmol/L Performed By: #### L 500.4050, L3410.9992, L501.2300, L3890.6102, L501.5200, L3410.9994, L501.4700, L500.4100, L100.0100, L501.5101, L3380.1000, L3400.8500 ####[facility] [address] [place], [place], [phone](620) Sodium [Moles/Vol] 139 mmol/L Normal 133-145 [facility] Comment on above: Result Comment: AMENDED REPORT 11/23/241144 NA previously reported as: 138 mmol/L Performed By: #### L 500.4050, L3410.9992, L501.2300, L3890.6102, L501.5200, L3410.9994, L501.4700, L500.4100, L100.0100, L501.5101, L3380.1000, L3400.8500 ####[facility] [address] [place], [place], [phone](374) T PROT 6.2 g/dL Normal 5.9-8.4 [facility] Comment on above: Result Comment: AMENDED REPORT 11/23/241144 T PROT previously reported as: 5.8 L g/dL Performed By: #### L 500.4050, L3410.9992, L501.2300, L3890.6102, L501.5200, L3410.9994, L501.4700, L500.4100, L100.0100, L501.5101, L3380.1000, L3400.8500 ####[facility] [address] [facility] [place], [address] Urea nitrogen [Mass/Vol] 21 mg/dL High 4-19 [facility] Comment on above: Performed By: #### L 500.4050, L3410.9992, L501.2300, L3890.6102, L501.5200, L3410.9994, L501.4700, L500.4100, L100.0100, L501.5101, L3380.1000, L3400.8500 ####[facility] [address] [facility] [place], [place], [phone] Cytomegalovirus (CMV) DNA me asurement by PCR (log units/volume)on 11-23-2024 CMV DNA JACKY+probe (P) [Log units/Vol] TNP [facility] Comment on above: Test not performedRe sult Units: log10 IU/mLUnable to calculate result since non-numeric resultobtained for component test. Erythrocyte distribution wid th ratioon 11-23-2024 Erythrocyte distribution width (RBC) [Ratio] 17.2 % High 11.6-14.6 [facility] Erythrocyte distribution wid th standard deviationon 11-23-2024 Erythrocyte distribution width (RBC) [Ratio] 62.4 fl High 35.1-43.9 [facility] Gamma glutamyl transferase ( GGT) measurementon 11-23-2024 Amylase [Catalytic activity/Vol] 45 U/L 0-65 [facility] Comment on above: Performed at: [facility] [address] [id number] Director: Red Graham PhD, Phone: [phone] at: [facility] [address] [id number] Director: Sergio Machado MD, Phone: [phone] Glomerular filtration rate ( GFR) estimation/1.73 sq m using serum, plasma, or whole bon 11-23-2024 GFR/1.73 sq M.predicted among non-blacks MDRD (S/P/Bld) [Vol rate/Area] 80 mL/min/{1.73_m2} >60 [facility] Comment on above: mL/min/1.73m2 CKD-EP I Creatinine Equation (2020) Hematocrit Auto (Bld) [Volum e fraction]on 11-23-2024 Hematocrit (Bld) [Volume fraction] 23.9 % Low 40-54 [facility] Hemoglobin measurementon Hemoglobin (Bld) [Mass/Vol] 7.5 g/dL Low 13.0-16.5 [facility] L3890.6102on 11-23-2024 HEP B Surf Ag Non-Reactive Normal Nonreactive [facility] Comment on above: Result Comment: Reac tive: Presumptive evidence of HBV. Repeatedly reactivesamples must be confirmed using a neutralization test([employer] HBsAg Confirmatory Test)Non-Reactive: HBsAg not detected; does not exclude thepossibility of exposure to HBV Performed By: #### L 500.4050, L3410.9992, L501.2300, L3890.6102, L501.5200, L3410.9994, L501.4700, L500.4100, L100.0100, L501.5101, L3380.1000, L3400.8500 ####[facility] [address] [place], [place], [phone] LDL calc ser/plason 11-24-19 25 Cholesterol in LDL [Mass/Vol] 84 mg/dL [facility] Comment on above: Zjsljvyuce=692-769 m g/dL & Higher Gjor=048 mg/dL or greaterFriedwald Equation for LDL-C Laboratory - Chemistry and C hemistry - challengeon 11-23-2024 AST [Catalytic activity/Vol] 17 U/L <38 [facility] Laboratory - Microbiology an d Antimicrobial susceptibilityon 11-23-2024 HBV surface Ag Ql (S) Non-Reactive Nonreactive [facility] Comment on above: Reactive: Presumptiv e evidence of HBV. Repeatedly reactive samples must be confirmed using a neutralization test ([employer] HBsAg Confirmatory Test)Non-Reactive: HBsAg not detected; does not exclude the possibility of exposure to HBV Lipid Profileon 11-23-2024 CHOL:HDL 2.96 Normal [facility] Comment on above: Performed By: #### L 500.4050, L3410.9992, L501.2300, L3890.6102, L501.5200, L3410.9994, L501.4700, L500.4100, L100.0100, L501.5101, L3380.1000, L3400.8500 ####[facility] [address] [place], [place], [phone](151) Cholesterol [Mass/Vol] 154 mg/dL Normal <=200 [facility] Comment on above: Result Comment: Chol esterol level, Desirable <200 mg/dLBorderline high cholesterol 200-239 mg/dLHigh cholesterol >=240 mg/dLRecommendations of the NCEP Adult Treatment Panel for thefollowing risk-cutoff thresholds for the [place] Americanptr[place] health. Performed By: #### L 500.4050, L3410.9992, L501.2300, L3890.6102, L501.5200, L3410.9994, L501.4700, L500.4100, L100.0100, L501.5101, L3380.1000, L3400.8500 ####[facility] [address] [place], [place], [phone](698) Cholesterol in HDL [Mass/Vol] 52 mg/dL Normal [facility] Comment on above: Result Comment: Priya onal Cholesterol Education Program (NCEP) guidelines:<40 mg/dL: Low HDL-cholesterol (major risk factor for CHD)>= 60 mg/dL: High HDL-cholesterol (negative risk factor forCHD)HDL-cholesterol is affected by a number of factors, e.g.smoking, exercise, hormones, sex and age. Performed By: #### L 500.4050, L3410.9992, L501.2300, L3890.6102, L501.5200, L3410.9994, L501.4700, L500.4100, L100.0100, L501.5101, L3380.1000, L3400.8500 ####[facility] [address] [place], [place], [phone](610) Cholesterol in LDL [Mass/Vol] 84 mg/dL Normal [facility] Comment on above: Result Comment: Bord hxqkjf=454-620 mg/dL Higher Unpx=412 mg/dL or greaterFriedwald Equation for LDL-C Performed By: #### L 500.4050, L3410.9992, L501.2300, L3890.6102, L501.5200, L3410.9994, L501.4700, L500.4100, L100.0100, L501.5101, L3380.1000, L3400.8500 ####[facility] [address] [place], [place], [phone](097) Cholesterol in VLDL [Mass/Vol] 18 mg/dL Normal 5-40 [facility] Comment on above: Performed By: #### L 500.4050, L3410.9992, L501.2300, L3890.6102, L501.5200, L3410.9994, L501.4700, L500.4100, L100.0100, L501.5101, L3380.1000, L3400.8500 ####[facility] [address] [place], [place], [phone](877) Triglyceride [Mass/Vol] 92 mg/dL Normal [facility] Comment on above: Result Comment: The drugs N-Acetylcysteine and Metamizole may falselydepress this assay.Normal range: <150 mg/dLBorderline High: 150-199 mg/dLHigh: 200-499 mg/dLVery High: >500 mg/dL Performed By: #### L 500.4050, L3410.9992, L501.2300, L3890.6102, L501.5200, L3410.9994, L501.4700, L500.4100, L100.0100, L501.5101, L3380.1000, L3400.8500 ####[facility] [address] [place], [place], [phone] MCV (mean corpuscular volume ) determinationon 11-23-2024 MCV (RBC) [Entitic vol] 98.8 fL High 80-94 [facility] Magnesiumon 11-23-2024 Magnesium [Mass/Vol] 2.1 mg/dL Normal 1.5-2.2 [facility] Comment on above: Performed By: #### L 500.4050, L3410.9992, L501.2300, L3890.6102, L501.5200, L3410.9994, L501.4700, L500.4100, L100.0100, L501.5101, L3380.1000, L3400.8500 ####[facility] [address] [place], [place], [phone] Magnesium measurement (mass/ volume)on 11-23-2024 Magnesium (Unsp spec) [Mass/Vol] 2.1 mg/dL 1.5-2.2 [facility] Mean corpuscular hemoglobin (MCH) determinationon 11-23-2024 MCH (RBC) [Entitic mass] 31.0 pg 27.0-32.0 [facility] Mean corpuscular hemoglobin concentration (MCHC) determinationon 11-23-2024 MCHC (RBC) [Mass/Vol] 31.4 g/dL Low 32-36 [facility] Mean platelet volume determi nationon 11-23-2024 Platelet mean volume (Bld) [Entitic vol] 10.9 fL 6.2-12.0 [facility] No Panel Informationon 11-23 17 U/L <38 [facility] Phosphoruson 11-23-2024 Phosphate [Mass/Vol] 2.8 mg/dL Normal 2.7-4.5 [facility] Comment on above: Result Comment: AMENDED REPORT 11/23/24 1145 PHOS previously reported as: 3.0 mg/dL Performed By: #### L 500.4050, L3410.9992, L501.2300, L3890.6102, L501.5200, L3410.9994, L501.4700, L500.4100, L100.0100, L501.5101, L3380.1000, L3400.8500 ####[facility] [address] [place], [address] Platelet counton 11-23-2024 Platelets (Bld) [#/Vol] 500 10*3/uL High 150-450 [facility] Potassium measurement (mass/ volume)on 11-23-2024 Potassium (Unsp spec) [Mass/Vol] 4.5 mmol/L 3.3-5.1 [facility] Comment on above: Previous reported re sult: 4.8 mmol/LEdited by: AUTOINS on 11/23/24:1145 AMENDED REPORT 11/23/24 1145 K previously reported as: 4.8 mmol/L RBC Auto (Bld) [#/Vol]on RBC (Bld) [#/Vol] 2.42 10*6/uL Low 4.6-6.2 [facility] Screening total cholesterol/ high density lipoprotein (HDL) cholesterol ratioon 11-23-2024 Cholesterol.total/Cho lesterol in HDL [Mass ratio] 2.96 {ratio} [facility] Serum creatinine measurement (mass/volume)on 11-23-2024 Creatinine [Mass/Vol] 1.12 mg/dL 0.70-1.20 [facility] Comment on above: Previous reported re sult: 1.06 mg/dLEdited by: AUTOINS on 11/23/24:1145 AMENDED REPORT 11/23/24 1145 CREAT,SERUM previously reported as: 1.06 mg/dL Serum globulin measurementon 11-23-2024 Globulin (S) [Mass/Vol] 2.6 g/dL 2.2-4.2 [facility] Comment on above: Previous reported re sult: 2.1 g/dLEdited by: AUTOINS on 11/23/24:1145 AMENDED REPORT 11/23/24 1145 GLOB previously reported as: 2.1 L g/dL Serum glucose measurement (m ass/volume)on 11-23-2024 Glucose [Mass/Vol] 86 mg/dL 70-99 [facility] Comment on above: Previous reported re sult: 89 mg/dLEdited by: AUTOINS on 11/23/24:1145 AMENDED REPORT 11/23/24 1145 GLU previously reported as: 89 mg/dL Serum or plasma alanine craig otransferase (ALT) measurementon 11-23-2024 ALT [Catalytic activity/Vol] 11 U/L <47 [facility] Comment on above: Previous reported re sult: 12 U/LEdited by: AUTOINS on 11/23/24:1145 AMENDED REPORT 11/23/24 114 ALT previously reported as: 12 U/L Serum or plasma albumin megha urement (mass/volume)on 11-23-2024 Albumin [Mass/Vol] 3.6 g/dL 3.4-4.8 [facility] Comment on above: Previous reported re sult: 3.7 g/dLEdited by: AUTOINS on 11/23/24:1145 AMENDED REPORT 11/23/24 1145 ALB previously reported as: 3.7 g/dL Serum or plasma albumin/glob ulin mass ratioon 11-23-2024 Albumin/Globulin [Mass ratio] 1.4 {ratio} 0.9-2.4 [facility] Comment on above: Previous reported re sult: 1.7 RATIOEdited by: AUTOINS on 11/23/24:1145 AMENDED REPORT 11/23/24 1145 A/G previously reported as: 1.7 RATIO Serum or plasma alkaline sal sphatase measurementon 11-23-2024 ALP [Catalytic activity/Vol] 400 U/L High 40-129 [facility] Comment on above: Previous reported re sult: 409 U/LEdited by: AUTOINS on 11/23/24:1145 AMENDED REPORT 11/23/24 1145 ALK P previously reported as: 409 H U/L Serum or plasma calcium megha urement (mass/volume)on 11-23-2024 Calcium [Mass/Vol] 8.7 mg/dL 7.6-11.0 [facility] Comment on above: Previous reported re sult: 8.6 mg/dLEdited by: CARLITA on 11/23/24:1145 AMENDED REPORT 11/23/24 1145 CA previously reported as: 8.6 mg/dL Serum or plasma cholesterol in HDL measurement (mass/volume)on 11-23-2024 Cholesterol in HDL [Mass/Vol] 52 mg/dL >40 [facility] Comment on above: National Cholesterol Education Program (NCEP) guidelines:<40 mg/dL: Low HDL-cholesterol (major risk factor for CHD)>= 60 mg/dL: High HDL-cholesterol (negative risk factor for CHD)HDL-cholesterol is affected by a number of factors, e.g. smoking, exercise, hormones, sex and age. Serum or plasma cholesterol measurement (mass/volume)on 11-23-2024 Cholesterol [Mass/Vol] 154 mg/dL <201 [facility] Comment on above: Cholesterol level, D esirable <200 mg/dLBorderline high cholesterol 200-239 mg/dLHigh cholesterol >=240 mg/dLRecommendations of the NCEP Adult Treatment Panel for the following risk-cutoff thresholds for the [place] population. Serum or plasma urea nitroge n measurement (mass/volume)on 11-23-2024 Urea nitrogen [Mass/Vol] 21 mg/dL High 4-19 [facility] Sodium levelon 11-23-2024 Sodium [Moles/Vol] 139 mmol/L 133-145 [facility] Comment on above: Previous reported re sult: 138 mmol/LEdited by: CARLITA on 11/23/24:1145 AMENDED REPORT 11/23/24 1145 NA previously reported as: 138 mmol/L Total cell counton Cells counted Mol[employer] (Bld/Tiss) [#] 100 MANUAL DIFF [facility] Total proteinon 11-23-2024 Protein [Mass/Vol] 6.2 g/dL 5.9-8.4 [facility] Comment on above: Previous reported re sult: 5.8 g/dLEdited by: CARLITA on 11/23/24:1145 AMENDED REPORT 11/23/24 1145 T PROT previously reported as: 5.8 L g/dL Triglycerides measurementon 11-23-2024 Triglyceride [Mass/Vol] 92 mg/dL <199 [facility] Comment on above: The drugs N-Acetylcy steine and Metamizole may falsely depress this assay. Normal range: <150 mg/dLBorderline High: 150-199 mg/dLHigh: 200-499 mg/dLVery High: >500 mg/dL White blood cell (WBC) count on 11-23-2024 WBC (Bld) [#/Vol] 2.4 10*3/uL Low 4.4-11.0 [facility] L3400.8500on 11-20-2024 CMV Quant DNA Positive Normal Negative [facility] Comment on above: Order Comment: Test( s) [id number] (FK506), Bloodwas developed and its performance characteristicsdetermined by [facility] [employer]. It has not been cleared or approvedby the Food and Drug Administration. Result Comment: CMV DNA detected.The quantitative range of this assay is 200 to 1 millionIU/mL. Performed By: #### L 501.5101, L3400.8500, L501.2300, L500.4050, L501.4700, L501.5200, L3380.1000, L100.0100 ####[facility] [address] [place], [place], [phone] CMV Quant DNA TNP Normal . [facility] Comment on above: Order Comment: Test( s) [id number] (FK506), Bloodwas developed and its performance characteristicsdetermined by [facility]. It has not been cleared or approvedby the Food and Drug Administration. Result Comment: Resu lt Units: log10 IU/mLUnable to calculate result since non-numeric resultobtained for component test. Performed By: #### L 501.5101, L3400.8500, L501.2300, L500.4050, L501.4700, L501.5200, L3380.1000, L100.0100 ####[facility] [address] [place], [place], [address] L501.5101on 11-20-2024 GGTP 93 IU/L Abnormal 0-65 [facility] Comment on above: Order Comment: Test( s) [id number]-Sozssppmci (FK506), Bloodwas developed and its performance characteristicsdetermined by [facility]. It has not been cleared or approvedby the Food and Drug Administration. Result Comment: Perf ormed at: [facility] [address] [id number] Director: Red Graham PhD, Phone: [phone] at: [address] [id number] Director: Sergio Machado MD, Phone: [phone] Performed By: #### L 5015101, L3400.8500, L501.2300, L500.4050, L501.4700, L501.5200, L3380.1000, L100.0100 ####[facility] [address] [place], [place], [address] Tacrolimus (Prograf)on 11-20 Tacrolimus (Bld) [Mass/Vol] 4.9 ng/mL Low 5.0-20.0 [facility] Comment on above: Order Comment: Test( s) [id number] (FK506), Bloodwas developed and its performance characteristicsdetermined by [facility]. It has not been cleared or approvedby the Food and Drug Administration. Result Comment: Ubaldog et steady state trough concentration forTacrolimus varies based on type of organ transplantimmunosuppressive protocol and other patient specificfactors. Tacrolimus trough concentrations should beinterpreted in conjunction with clinical assessmentsof rejection and tolerability. Values obtained withdifferent assay methods cannot be used interchangeablydue to differences in assay methods and cross-reactivtywith metabolites, nor should correction factors beapplied. Therefore, consistent use of one assay forindividual patients is recommended.Detection Limit = 0.5 ng/mLPerformed by LC-MS/MS technology. Performed By: #### L 501.5101, L3400.8500, L501.2300, L500.4050, L501.4700, L501.5200, L3380.1000, L100.0100 ####[facility] [address] [place], [place], [phone] Bilirubin, Directon 11-17-19 Bilirubin.direct [Mass/Vol] 0.19 mg/dL Normal 0.00-0.30 [facility] Comment on above: Performed By: #### L 501.5101, L3400.8500, L501.2300, L500.4050, L501.4700, L501.5200, L3380.1000, L100.0100 ####[facility] [address] [place], [place], [address] CBC W/Diff, Automatedon 10-31 Absolute Lymph 0.29 X10 3/uL Low 0.83-4.51 [facility] Comment on above: Performed By: #### L 501.5101, L3400.8500, L501.2300, L500.4050, L501.4700, L501.5200, L3380.1000, L100.0100 ####[facility] [address] [place], [place], [phone] Absolute Neut 1.6 X10 3/uL Low 2.0-7.7 [facility] Comment on above: Performed By: #### L 501.5101, L3400.8500, L501.2300, L500.4050, L501.4700, L501.5200, L3380.1000, L100.0100 ####[facility] [address] [place], [address] Comprehensive Metabolic Prof ilon 11-16-2024 Albumin [Mass/Vol] 3.6 g/dL Normal 3.4-4.8 [facility] Comment on above: Performed By: #### L 501.5101, L3400.8500, L501.2300, L500.4050, L501.4700, L501.5200, L3380.1000, L100.0100 ####[facility] [address] [place], [address] Albumin/Globulin [Mass ratio] 1.4 {ratio} Normal 0.9-2.4 [facility] Comment on above: Performed By: #### L 501.5101, L3400.8500, L501.2300, L500.4050, L501.4700, L501.5200, L3380.1000, L100.0100 ####[facility] [address] [place], [address] ALK PHOS 441 U/L High 40-129 [facility] Comment on above: Performed By: #### L 501.5101, L3400.8500, L501.2300, L500.4050, L501.4700, L501.5200, L3380.1000, L100.0100 ####[facility] [address] [place], [address] ALT [Catalytic activity/Vol] 36 U/L Normal <=46 [facility] Comment on above: Performed By: #### L 501.5101, L3400.8500, L501.2300, L500.4050, L501.4700, L501.5200, L3380.1000, L100.0100 ####[facility] [address] [place], [address] AST [Catalytic activity/Vol] 46 U/L High <=37 [facility] Comment on above: Performed By: #### L 501.5101, L3400.8500, L501.2300, L500.4050, L501.4700, L501.5200, L3380.1000, L100.0100 ####[facility] [address] [place], [address] Bilirubin [Mass/Vol] 0.38 mg/dL Normal 0.00-1.30 [facility] Comment on above: Performed By: #### L 501.5101, L3400.8500, L501.2300, L500.4050, L501.4700, L501.5200, L3380.1000, L100.0100 ####[facility] [address] [place], [address] BUN/CRE 17.6 RATIO Normal 10-20 [facility] Comment on above: Performed By: #### L 501.5101, L3400.8500, L501.2300, L500.4050, L501.4700, L501.5200, L3380.1000, L100.0100 ####[facility] [address] [place], [address] Calcium [Mass/Vol] 8.9 mg/dL Normal 7.6-11.0 [facility] Comment on above: Performed By: #### L 501.5101, L3400.8500, L501.2300, L500.4050, L501.4700, L501.5200, L3380.1000, L100.0100 ####[facility] [address] [place], [address] Chloride [Moles/Vol] 103 mmol/L Normal 98-108 [facility] Comment on above: Performed By: #### L 501.5101, L3400.8500, L501.2300, L500.4050, L501.4700, L501.5200, L3380.1000, L100.0100 ####[facility] [address] [place], [address] CO2 [Moles/Vol] 22.2 mmol/L Normal 21.0-32.0 [facility] Comment on above: Performed By: #### L 501.5101, L3400.8500, L501.2300, L500.4050, L501.4700, L501.5200, L3380.1000, L100.0100 ####[facility] [address] [place], [address] Creatinine [Mass/Vol] 1.21 mg/dL High 0.70-1.20 [facility] Comment on above: Performed By: #### L 501.5101, L3400.8500, L501.2300, L500.4050, L501.4700, L501.5200, L3380.1000, L100.0100 ####[facility] [address] [place], [address] GAP 11 Normal 5-15 [facility] Comment on above: Performed By: #### L 501.5101, L3400.8500, L501.2300, L500.4050, L501.4700, L501.5200, L3380.1000, L100.0100 ####[facility] [address] [place], [address](986) GFR/1.73 sq M.predicted among non-blacks MDRD (S/P/Bld) [Vol rate/Area] 69 mL/min/{1.73_m2} Normal >60 [facility] Comment on above: Result Comment: mL/m in/1.73m2 CKD-EPI Creatinine Equation (2020) Performed By: #### L 501.5101, L3400.8500, L501.2300, L500.4050, L501.4700, L501.5200, L3380.1000, L100.0100 ####[facility] [address] [place], [address] Globulin (S) [Mass/Vol] 2.6 g/dL Normal 2.2-4.2 [facility] Comment on above: Performed By: #### L 501.5101, L3400.8500, L501.2300, L500.4050, L501.4700, L501.5200, L3380.1000, L100.0100 ####[facility] [address] [place], [address] Glucose [Mass/Vol] 157 mg/dL High 70-99 [facility] Comment on above: Performed By: #### L 501.5101, L3400.8500, L501.2300, L500.4050, L501.4700, L501.5200, L3380.1000, L100.0100 ####[facility] [address] [place], [address] Potassium [Moles/Vol] 4.4 mmol/L Normal 3.3-5.1 [facility] Comment on above: Performed By: #### L 501.5101, L3400.8500, L501.2300, L500.4050, L501.4700, L501.5200, L3380.1000, L100.0100 ####[facility] [address] [place], [address] Sodium [Moles/Vol] 136 mmol/L Normal 133-145 [facility] Comment on above: Performed By: #### L 501.5101, L3400.8500, L501.2300, L500.4050, L501.4700, L501.5200, L3380.1000, L100.0100 ####[facility] [address] [place], [address] T PROT 6.1 g/dL Normal 5.9-8.4 [facility] Comment on above: Performed By: #### L 501.5101, L3400.8500, L501.2300, L500.4050, L501.4700, L501.5200, L3380.1000, L100.0100 ####[facility] [address] [place], [address] Urea nitrogen [Mass/Vol] 21 mg/dL High 4-19 [facility] Comment on above: Performed By: #### L 501.5101, L3400.8500, L501.2300, L500.4050, L501.4700, L501.5200, L3380.1000, L100.0100 ####[facility] [address] [place], [address] Magnesiumon 11-16-2024 Magnesium [Mass/Vol] 1.8 mg/dL Normal 1.5-2.2 [facility] Comment on above: Performed By: #### L 501.5101, L3400.8500, L501.2300, L500.4050, L501.4700, L501.5200, L3380.1000, L100.0100 ####[facility] [address] [place], [address] Phosphoruson 11-16-2024 Phosphate [Mass/Vol] 2.7 mg/dL Normal 2.7-4.5 [facility] Comment on above: Performed By: #### L 501.5101, L3400.8500, L501.2300, L500.4050, L501.4700, L501.5200, L3380.1000, L100.0100 ####[facility] [address] [place], [address] L3400.8500on 11-13-2024 CMV Quant DNA Positive Normal Negative [facility] Comment on above: Order Comment: Test( s) [id number]-Cxdvcwxgwe (FK506), Bloodwas developed and its performance characteristicsdetermined by [facility]. It has not been cleared or approvedby the Food and Drug Administration. Result Comment: CMV DNA detected.The quantitative range of this assay is 200 to 1 millionIU/mL. Performed By: #### L 501.2300, L3380.1000, L3400.8500, L501.5101, L500.4050, L501.4700, L100.0100, L501.5200 ####[facility] [address] [place], [address] CMV Quant DNA TNP Normal . [facility] Comment on above: Order Comment: Test( s) [id number]-Axajtkpkrn (FK506), Bloodwas developed and its performance characteristicsdetermined by [facility]. It has not been cleared or approvedby the Food and Drug Administration. Result Comment: Resu lt Units: log10 IU/mLUnable to calculate result since non-numeric resultobtained for component test. Performed By: #### L 501.2300, L3380.1000, L3400.8500, L501.5101, L500.4050, L501.4700, L100.0100, L501.5200 ####[facility] [address] [place], [address] L501.5101on 11-13-2024 GGTP 67 IU/L Abnormal 0-65 [facility] Comment on above: Order Comment: Test( s) [id number]-Ytzqswezsf (FK506), Bloodwas developed and its performance characteristicsdetermined by [facility]. It has not been cleared or approvedby the Food and Drug Administration. Result Comment: Perf ormed at: - Lab[address] [id number] Director: Red Graham PhD, Phone: [phone] at: [facility] [id number] Director: Sergio Machado MD, Phone: [phone] Performed By: #### L 501.2300, L3380.1000, L3400.8500, L501.5101, L500.4050, L501.4700, L100.0100, L501.5200 ####[facility] [address] [facility] [place], [address] Tacrolimus (Prograf)on 11-13 Tacrolimus (Bld) [Mass/Vol] 5.6 ng/mL Normal 5.0-20.0 [facility] Comment on above: Order Comment: Test( s) [id number]-Orqhrjtmuq (FK506), Bloodwas developed and its performance characteristicsdetermined by [facility]. It has not been cleared or approvedby the Food and Drug Administration. Result Comment: Samia et steady state trough concentration forTacrolimus varies based on type of organ transplantimmunosuppressive protocol and other patient specificfactors. Tacrolimus trough concentrations should beinterpreted in conjunction with clinical assessmentsof rejection and tolerability. Values obtained withdifferent assay methods cannot be used interchangeablydue to differences in assay methods and cross-reactivtywith metabolites, nor should correction factors beapplied. Therefore, consistent use of one assay forindividual patients is recommended.Detection Limit = 0.5 ng/mLPerformed by LC-MS/MS technology. Performed By: #### L 501.2300, L3380.1000, L3400.8500, L501.5101, L500.4050, L501.4700, L100.0100, L501.5200 ####[facility] [address] [place], [address] Bilirubin, Directon 11-10-19 Bilirubin.direct [Mass/Vol] 0.11 mg/dL Normal 0.00-0.30 [facility] Comment on above: Performed By: #### L 501.2300, L3380.1000, L3400.8500, L501.5101, L500.4050, L501.4700, L100.0100, L501.5200 ####[facility] [address] [place], [address] Comprehensive Metabolic Prof ilon 11-09-2024 Albumin [Mass/Vol] 3.6 g/dL Normal 3.4-4.8 [facility] Comment on above: Performed By: #### L 501.2300, L3380.1000, L3400.8500, L501.5101, L500.4050, L501.4700, L100.0100, L501.5200 ####[facility] [address] [place], [place], [address] Albumin/Globulin [Mass ratio] 1.4 {ratio} Normal 0.9-2.4 [facility] Comment on above: Performed By: #### L 501.2300, L3380.1000, L3400.8500, L501.5101, L500.4050, L501.4700, L100.0100, L501.5200 ####[facility] [address] [place], [address] ALK PHOS 297 U/L High 40-129 [facility] Comment on above: Performed By: #### L 501.2300, L3380.1000, L3400.8500, L501.5101, L500.4050, L501.4700, L100.0100, L501.5200 ####[facility] [address] [place], [address] ALT [Catalytic activity/Vol] 24 U/L Normal <=46 [facility] Comment on above: Performed By: #### L 501.2300, L3380.1000, L3400.8500, L501.5101, L500.4050, L501.4700, L100.0100, L501.5200 ####[facility] [address] [place], [place], [address] AST [Catalytic activity/Vol] 35 U/L Normal <=37 [facility] Comment on above: Performed By: #### L 501.2300, L3380.1000, L3400.8500, L501.5101, L500.4050, L501.4700, L100.0100, L501.5200 ####[facility] [address] [place], [address] Bilirubin [Mass/Vol] 0.21 mg/dL Normal 0.00-1.30 [facility] Comment on above: Performed By: #### L 501.2300, L3380.1000, L3400.8500, L501.5101, L500.4050, L501.4700, L100.0100, L501.5200 ####[facility] [address] [place], [address] BUN/CRE 16.7 RATIO Normal 10-20 [facility] Comment on above: Performed By: #### L 501.2300, L3380.1000, L3400.8500, L501.5101, L500.4050, L501.4700, L100.0100, L501.5200 ####[facility] [address] [place], [address] Calcium [Mass/Vol] 8.8 mg/dL Normal 7.6-11.0 [facility] Comment on above: Performed By: #### L 501.2300, L3380.1000, L3400.8500, L501.5101, L500.4050, L501.4700, L100.0100, L501.5200 ####[facility] [address] [place], [address] Chloride [Moles/Vol] 109 mmol/L High 98-108 [facility] Comment on above: Performed By: #### L 501.2300, L3380.1000, L3400.8500, L501.5101, L500.4050, L501.4700, L100.0100, L501.5200 ####[facility] [address] [place], [address] CO2 [Moles/Vol] 21.4 mmol/L Normal 21.0-32.0 [facility] Comment on above: Performed By: #### L 501.2300, L3380.1000, L3400.8500, L501.5101, L500.4050, L501.4700, L100.0100, L501.5200 ####[facility] [address] [place], [address] Creatinine [Mass/Vol] 1.30 mg/dL High 0.70-1.20 [facility] Comment on above: Performed By: #### L 501.2300, L3380.1000, L3400.8500, L501.5101, L500.4050, L501.4700, L100.0100, L501.5200 ####[facility] [address] [place], [place], [address] GAP 10 Normal 5-15 [facility] Comment on above: Performed By: #### L 501.2300, L3380.1000, L3400.8500, L501.5101, L500.4050, L501.4700, L100.0100, L501.5200 ####[facility] [address] [place], [address] GFR/1.73 sq M.predicted among non-blacks MDRD (S/P/Bld) [Vol rate/Area] 63 mL/min/{1.73_m2} Normal >60 [facility] Comment on above: Result Comment: mL/m in/1.73m2 CKD-EPI Creatinine Equation (2020) Performed By: #### L 501.2300, L3380.1000, L3400.8500, L501.5101, L500.4050, L501.4700, L100.0100, L501.5200 ####[facility] [address] [place], [place], [phone] Globulin (S) [Mass/Vol] 2.5 g/dL Normal 2.2-4.2 [facility] Comment on above: Performed By: #### L 501.2300, L3380.1000, L3400.8500, L501.5101, L500.4050, L501.4700, L100.0100, L501.5200 ####[facility] [address] [place], [place], [phone] Glucose [Mass/Vol] 102 mg/dL High 70-99 [facility] Comment on above: Performed By: #### L 501.2300, L3380.1000, L3400.8500, L501.5101, L500.4050, L501.4700, L100.0100, L501.5200 ####[facility] [address] [place], [address] Potassium [Moles/Vol] 4.1 mmol/L Normal 3.3-5.1 [facility] Comment on above: Performed By: #### L 501.2300, L3380.1000, L3400.8500, L501.5101, L500.4050, L501.4700, L100.0100, L501.5200 ####[facility] [address] [place], [address] Sodium [Moles/Vol] 141 mmol/L Normal 133-145 [facility] Comment on above: Performed By: #### L 501.2300, L3380.1000, L3400.8500, L501.5101, L500.4050, L501.4700, L100.0100, L501.5200 ####[facility] [address] [place], [address] T PROT 6.0 g/dL Normal 5.9-8.4 [facility] Comment on above: Performed By: #### L 501.2300, L3380.1000, L3400.8500, L501.5101, L500.4050, L501.4700, L100.0100, L501.5200 ####[facility] [address] [place], [address] Urea nitrogen [Mass/Vol] 22 mg/dL High 4-19 [facility] Comment on above: Performed By: #### L 501.2300, L3380.1000, L3400.8500, L501.5101, L500.4050, L501.4700, L100.0100, L501.5200 ####[facility] [address] [place], [address] Magnesiumon 11-09-2024 Magnesium [Mass/Vol] 1.9 mg/dL Normal 1.5-2.2 [facility] Comment on above: Performed By: #### L 501.2300, L3380.1000, L3400.8500, L501.5101, L500.4050, L501.4700, L100.0100, L501.5200 ####[facility] [address] [place], [address] Phosphoruson 11-09-2024 Phosphate [Mass/Vol] 2.8 mg/dL Normal 2.7-4.5 [facility] Comment on above: Performed By: #### L 501.2300, L3380.1000, L3400.8500, L501.5101, L500.4050, L501.4700, L100.0100, L501.5200 ####[facility] [address] [place], [address] Platelet estimateon 11-10-19 25 Platelets LM Ql (Bld) ADEQUATE ADEQ [facility] Review by pathologiston 10-31 Pathologist review Deandre (Unsp spec) [Interp] Reviewed [facility] Comment on above: Previous reported re sult: Patricia delgado Edited by: SAMIR on 11/25/24:1132SEE REPORT IN PATIENT'S EMR AMENDED REPORT 11/25/24 1132 PATH REV previously reported as: Patricia delgado L501.5101on 11-06-2024 GGTP 37 IU/L Normal 0-65 [facility] Comment on above: Order Comment: Test( s) [id number]-Pahjunvddn (FK506), Bloodwas developed and its performance characteristicsdetermined by [facility]. It has not been cleared or approvedby the Food and Drug Administration. Result Comment: Perf ormed at: - Lab[address] [id number] Director: Sergio Machado MD, Phone: [phone] at: [facility] [address] [id number] Director: Red Graham PhD, Phone: [phone] Performed By: #### L 501.5101, L3380.1000, L100.0100, L501.2300, L501.5200, L500.4050, L501.4700 ####[facility] [address] [place], [address] Tacrolimus (Prograf)on 11-06 Tacrolimus (Bld) [Mass/Vol] 5.4 ng/mL Normal 5.0-20.0 [facility] Comment on above: Order Comment: Test( s) [id number]-Ayoefrfrcw (FK506), Bloodwas developed and its performance characteristicsdetermined by [facility]. It has not been cleared or approvedby the Food and Drug Administration. Result Comment: Targ et steady state trough concentration forTacrolimus varies based on type of organ transplantimmunosuppressive protocol and other patient specificfactors. Tacrolimus trough concentrations should beinterpreted in conjunction with clinical assessmentsof rejection and tolerability. Values obtained withdifferent assay methods cannot be used interchangeablydue to differences in assay methods and cross-reactivtywith metabolites, nor should correction factors beapplied. Therefore, consistent use of one assay forindividual patients is recommended.Detection Limit = 0.5 ng/mLPerformed by LC-MS/MS technology. Performed By: #### L 501.5101, L3380.1000, L100.0100, L501.2300, L501.5200, L500.4050, L501.4700 ####[facility] [address] [place], [address] L3400.8500on 11-04-2024 CMV Quant DNA 914 IU/mL Normal Negative [facility] Comment on above: Result Comment: The quantitative range of this assay is 200 to 1 millionIU/mL. Performed By: #### L 3400.8500 ####[facility] [address] [place], [address] CMV Quant DNA 2.961 Normal . [facility] Comment on above: Result Comment: Resu lt Units: log10 IU/mLPerformed at: [facility] [address] [id number] Director: Red Grahma PhD, Phone: [phone] Performed By: #### L 3400.8500 ####[facility] [address] [place], [address] Automated lymphocyte count a s percentage of total leukocyteson 11-02-2024 Lymphocytes/100 WBC Auto (Unsp spec) 39.1 % 19-41 [facility] Basophil percentageon 2024 Basophils/100 WBC (Bld) 2.0 % High 0-1 [facility] Bilirubin, Directon 11-03-19 25 Bilirubin.direct [Mass/Vol] 0.10 mg/dL Normal 0.00-0.30 [facility] Comment on above: Performed By: #### L 501.5101, L3380.1000, L100.0100, L501.2300, L501.5200, L500.4050, L501.4700 ####[facility] [address] [place], [address] Blood manual differential co mment interpretation (narrative result)on 11-02-2024 Manual differential comment Deandre (Bld) [Interp] COMMENT [facility] Comment on above: LYMPHOPENIA.NEUTROPE DARLENE. CBC W/Diff, Automatedon SMEAR COMMENT COMMENT Normal [facility] Comment on above: Result Comment: LYMP HOPENIA.NEUTROPENIA. Performed By: #### L 501.5101, L3380.1000, L100.0100, L501.2300, L501.5200, L500.4050, L501.4700 ####[facility] [address] [place], [place], [address] Comprehensive Metabolic Prof ilon 11-02-2024 Albumin [Mass/Vol] 3.7 g/dL Normal 3.4-4.8 [facility] Comment on above: Performed By: #### L 501.5101, L3380.1000, L100.0100, L501.2300, L501.5200, L500.4050, L501.4700 ####[facility] [address] [place], [address] Albumin/Globulin [Mass ratio] 1.4 {ratio} Normal 0.9-2.4 [facility] Comment on above: Performed By: #### L 501.5101, L3380.1000, L100.0100, L501.2300, L501.5200, L500.4050, L501.4700 ####[facility] [address] [place], [address] ALK PHOS 182 U/L High 40-129 [facility] Comment on above: Performed By: #### L 501.5101, L3380.1000, L100.0100, L501.2300, L501.5200, L500.4050, L501.4700 ####[facility] [address] [place], [address] ALT [Catalytic activity/Vol] 11 U/L Normal <=46 [facility] Comment on above: Performed By: #### L 501.5101, L3380.1000, L100.0100, L501.2300, L501.5200, L500.4050, L501.4700 ####[facility] [address] [place], [address] AST [Catalytic activity/Vol] 22 U/L Normal <=37 [facility] Comment on above: Performed By: #### L 501.5101, L3380.1000, L100.0100, L501.2300, L501.5200, L500.4050, L501.4700 ####[facility] [address] [place], [address] Bilirubin [Mass/Vol] 0.25 mg/dL Normal 0.00-1.30 [facility] Comment on above: Performed By: #### L 501.5101, L3380.1000, L100.0100, L501.2300, L501.5200, L500.4050, L501.4700 ####[facility] [address] [place], [address] BUN/CRE 17.3 RATIO Normal 10-20 [facility] Comment on above: Performed By: #### L 501.5101, L3380.1000, L100.0100, L501.2300, L501.5200, L500.4050, L501.4700 ####[facility] [address] [place], [address] Calcium [Mass/Vol] 9.3 mg/dL Normal 7.6-11.0 [facility] Comment on above: Performed By: #### L 501.5101, L3380.1000, L100.0100, L501.2300, L501.5200, L500.4050, L501.4700 ####[facility] [address] [place], [address] Chloride [Moles/Vol] 108 mmol/L Normal 98-108 [facility] Comment on above: Performed By: #### L 501.5101, L3380.1000, L100.0100, L501.2300, L501.5200, L500.4050, L501.4700 ####[facility] [address] [place], [address] CO2 [Moles/Vol] 22.4 mmol/L Normal 21.0-32.0 [facility] Comment on above: Performed By: #### L 501.5101, L3380.1000, L100.0100, L501.2300, L501.5200, L500.4050, L501.4700 ####[facility] [address] [place], [address] Creatinine [Mass/Vol] 1.79 mg/dL High 0.70-1.20 [facility] Comment on above: Performed By: #### L 501.5101, L3380.1000, L100.0100, L501.2300, L501.5200, L500.4050, L501.4700 ####[facility] [address] [place], [address] GAP 10 Normal 5-15 [facility] Comment on above: Performed By: #### L 501.5101, L3380.1000, L100.0100, L501.2300, L501.5200, L500.4050, L501.4700 ####[facility] [address] [place], [place], [id number]) GFR/1.73 sq M.predicted among non-blacks MDRD (S/P/Bld) [Vol rate/Area] 43 mL/min/{1.73_m2} Low >60 [facility] Comment on above: Result Comment: mL/m in/1.73m2 CKD-EPI Creatinine Equation (2020) Performed By: #### L 501.5101, L3380.1000, L100.0100, L501.2300, L501.5200, L500.4050, L501.4700 ####[facility] [address] [place], [address] Globulin (S) [Mass/Vol] 2.7 g/dL Normal 2.2-4.2 [facility] Comment on above: Performed By: #### L 501.5101, L3380.1000, L100.0100, L501.2300, L501.5200, L500.4050, L501.4700 ####[facility] [address] [place], [place], [phone] Glucose [Mass/Vol] 72 mg/dL Normal 70-99 [facility] Comment on above: Performed By: #### L 501.5101, L3380.1000, L100.0100, L501.2300, L501.5200, L500.4050, L501.4700 ####[facility] [address] [place], [address] Potassium [Moles/Vol] 4.5 mmol/L Normal 3.3-5.1 [facility] Comment on above: Performed By: #### L 501.5101, L3380.1000, L100.0100, L501.2300, L501.5200, L500.4050, L501.4700 ####[facility] [address] [place], [address] Sodium [Moles/Vol] 140 mmol/L Normal 133-145 [facility] Comment on above: Performed By: #### L 501.5101, L3380.1000, L100.0100, L501.2300, L501.5200, L500.4050, L501.4700 ####[facility] [address] [place], [address] T PROT 6.5 g/dL Normal 5.9-8.4 [facility] Comment on above: Performed By: #### L 501.5101, L3380.1000, L100.0100, L501.2300, L501.5200, L500.4050, L501.4700 ####[facility] [address] [place], [address] Urea nitrogen [Mass/Vol] 31 mg/dL High 4-19 [facility] Comment on above: Performed By: #### L 501.5101, L3380.1000, L100.0100, L501.2300, L501.5200, L500.4050, L501.4700 ####[facility] [address] [place], [address] Eosinophil percentageon Eosinophils/100 WBC (Bld) 2.6 % 0-5 [facility] Immature granulocytes/100 WB C Auto (Bld)on 11-02-2024 Immature granulocytes/100 WBC (Bld) 3.300 % High 0.0-0.9 [facility] Comment on above: IG% - Immature Granu locytes (promyelocytes, myelocytes and metamyelocytes) > 1% indicates that a LEFT SHIFT is Present. Magnesiumon 11-02-2024 Magnesium [Mass/Vol] 2.0 mg/dL Normal 1.5-2.2 [facility] Comment on above: Performed By: #### L 501.5101, L3380.1000, L100.0100, L501.2300, L501.5200, L500.4050, L501.4700 ####[facility] [address] [place], [place], [address] Monocyte percentageon 2024 Monocytes/100 WBC (Bld) 5.3 % 0-10 [facility] Nucleated red blood cell per centageon 11-02-2024 Nucleated RBC/100 WBC (Bld) [Ratio] 0 % 0-5 [facility] Phosphoruson 11-02-2024 Phosphate [Mass/Vol] 3.0 mg/dL Normal 2.7-4.5 [facility] Comment on above: Performed By: #### L 501.5101, L3380.1000, L100.0100, L501.2300, L501.5200, L500.4050, L501.4700 ####[facility] [address] [place], [address] L3410.9992on 10-30-2024 [facility] Misc. COMMENT Normal . [facility] Comment on above: Order Comment: 57216 4PETH TEST WB RMT Result Comment: Test Ordered: 182388 Phosphatidylethanol (PEth)PHOSPHATIDYLETHANOL Negative MX Reference Range: .Phosphatidylethanol (PEth) Negative ng/mL MX Reference Range: .Analyzed compound: PEth 16:0/18:1. 7-clodrnwsz-0-uhdpum-lj-btcorxk-3-phosphoethanol.Analysis performed by Liquid Chromatography withTandem Mass Spectrometry (LC/MS/MS).Detection limit: 20 ng/mLPEth levels in excess of 20 ng/mL are considered evidenceof moderate to heavy ethanol consumption. However,the [facility] (CSAT) advisescaution in interpretation and use of biomarkers aloneto assess alcohol use. Results should be interpretedin the context of all available clinical and behavioralinformation.Reference: Substance Abuse and Mental Health Services Administration (2012). The Role of Biomarkers in the Treatment of Alcohol Use Disorders, 2012 Revision. Advisory, Volume 11, Issue 2.This test was developed and its performance characteristicsdetermined by [facility]. It has not been cleared or approvedby the Food and Drug Administration.Performed at: [facility] [address] [id number] Director: Clau Abdalla [facility], Phone: [phone] at: [facility] [address] [id number] Director: Red Graham PhD, Phone: [phone] Performed By: #### L 500.4050, L100.0100, L501.2300, L501.5101, L501.4700, L3410.9992, L3400.8500, L3380.1000, L501.5200 ####[facility] [address] [place], [address] L3400.8500on 10-27-2024 CMV Quant DNA 3760 IU/mL Normal Negative [facility] Comment on above: Order Comment: Test( s) [id number]-Qngjmqdllx (FK506), Bloodwas developed and its performance characteristicsdetermined by [facility]. It has not been cleared or approvedby the Food and Drug Administration. Result Comment: The quantitative range of this assay is 200 to 1 millionIU/mL. Performed By: #### L 500.4050, L100.0100, L501.2300, L501.5101, L501.4700, L3410.9992, L3400.8500, L3380.1000, L501.5200 ####[facility] [address] [place], [place], [address] CMV Quant DNA 3.575 Normal . [facility] Comment on above: Order Comment: Test( s) [id number]-Smgvqkkjse (FK506), Bloodwas developed and its performance characteristicsdetermined by [facility]. It has not been cleared or approvedby the Food and Drug Administration. Result Comment: Resu lt Units: log10 IU/mL Performed By: #### L 500.4050, L100.0100, L501.2300, L501.5101, L501.4700, L3410.9992, L3400.8500, L3380.1000, L501.5200 ####[facility] [address] [facility] [place], [place], [address] L501.5101on 10-27-2024 GGTP 33 IU/L Normal 0-65 [facility] Comment on above: Order Comment: Test( s) [id number]-Btoraodprh (FK506), Bloodwas developed and its performance characteristicsdetermined by [facility]. It has not been cleared or approvedby the Food and Drug Administration. Result Comment: Perf ormed at: - [facility]etao[address] [id number] Director: Red Graham PhD, Phone: [phone] at: [facility] [address]Leta[address] [id number] Director: Sergio Machado MD, Phone: [phone] Performed By: #### L 500.4050, L100.0100, L501.2300, L501.5101, L501.4700, L3410.9992, L3400.8500, L3380.1000, L501.5200 ####[facility] [address] [facility] [place], [address] Tacrolimus (Prograf)on 10-27 Tacrolimus (Bld) [Mass/Vol] 8.7 ng/mL Normal 5.0-20.0 [facility] Comment on above: Order Comment: Test( s) [id number]-Dfewkbwwcg (FK506), Bloodwas developed and its performance characteristicsdetermined by [facility]. It has not been cleared or approvedby the Food and Drug Administration. Result Comment: Ubaldog et steady state trough concentration forTacrolimus varies based on type of organ transplantimmunosuppressive protocol and other patient specificfactors. Tacrolimus trough concentrations should beinterpreted in conjunction with clinical assessmentsof rejection and tolerability. Values obtained withdifferent assay methods cannot be used interchangeablydue to differences in assay methods and cross-reactivtywith metabolites, nor should correction factors beapplied. Therefore, consistent use of one assay forindividual patients is recommended.Detection Limit = 0.5 ng/mLPerformed by LC-MS/MS technology. Performed By: #### L 500.4050, L100.0100, L501.2300, L501.5101, L501.4700, L3410.9992, L3400.8500, L3380.1000, L501.5200 ####[facility] [address] [place], [address] Absolute lymphocyte counton 10-24-2024 Lymphocytes Auto (Unsp spec) [#/Vol] 0.93 10*3/uL 0.83-4.51 [facility] Absolute neutrophil counton 10-24-2024 Neutrophils (Bld) [#/Vol] 1.4 10*3/uL Low 2.0-7.7 [facility] Anion gap in Serum or Plasma on 10-24-2024 Anion gap [Moles/Vol] 10 mmol/L 5-15 [facility] Automated lymphocyte count a s percentage of total leukocyteson 10-24-2024 Lymphocytes/100 WBC Auto (Unsp spec) 37.8 % 19-41 [facility] BUN/creatinine ratioon 10-24 Urea nitrogen/Creatinine [Mass ratio] 16.0 mg/mg 10-20 [facility] Basophil percentageon 2024 Basophils/100 WBC (Bld) 0.8 % 0-1 [facility] Bilirubin directon Bilirubin.direct [Mass/Vol] 0.19 mg/dL Normal 0.00-0.30 [facility] Comment on above: Performed By: #### L 500.4050, L100.0100, L501.2300, L501.5101, L501.4700, L3410.9992, L3400.8500, L3380.1000, L501.5200 ####[facility] [address] [place], [place], [phone] Bilirubin, totalon Bilirubin [Mass/Vol] 0.27 mg/dL Normal 0.00-1.30 [facility] Comment on above: Performed By: #### L 500.4050, L100.0100, L501.2300, L501.5101, L501.4700, L3410.9992, L3400.8500, L3380.1000, L501.5200 ####[facility] [address] [place], [place], [phone] Blood manual differential co mment interpretation (narrative result)on 10-24-2024 Manual differential comment Deandre (Bld) [Interp] SCANNED [facility] CBC W/Diff, Automatedon 10-01 SMEAR COMMENT SCANNED Normal [facility] Comment on above: Performed By: #### L 500.4050, L100.0100, L501.2300, L501.5101, L501.4700, L3410.9992, L3400.8500, L3380.1000, L501.5200 ####[facility] [address] [place], [place], [phone] Carbon dioxide, total [Moles /volume] in Central venous bloodon 10-24-2024 CO2 [Moles/Vol] 22.9 mmol/L Normal 21.0-32.0 [facility] Comment on above: Performed By: #### L 500.4050, L100.0100, L501.2300, L501.5101, L501.4700, L3410.9992, L3400.8500, L3380.1000, L501.5200 ####[facility] [address] [place], [place], [phone] Chloride assayon 10-24-2024 Chloride [Moles/Vol] 105 mmol/L Normal 98-108 [facility] Comment on above: Performed By: #### L 500.4050, L100.0100, L501.2300, L501.5101, L501.4700, L3410.9992, L3400.8500, L3380.1000, L501.5200 ####[facility] [address] [place], [address] Comprehensive Metabolic Prof ilon 10-24-2024 ALK PHOS 148 U/L High 40-129 [facility] Comment on above: Performed By: #### L 500.4050, L100.0100, L501.2300, L501.5101, L501.4700, L3410.9992, L3400.8500, L3380.1000, L501.5200 ####[facility] [address] [place], [place], [phone] BUN/CRE 16.0 RATIO Normal 10-20 [facility] Comment on above: Performed By: #### L 500.4050, L100.0100, L501.2300, L501.5101, L501.4700, L3410.9992, L3400.8500, L3380.1000, L501.5200 ####[facility] [address] [place], [address] GAP 10 Normal 5-15 [facility] Comment on above: Performed By: #### L 500.4050, L100.0100, L501.2300, L501.5101, L501.4700, L3410.9992, L3400.8500, L3380.1000, L501.5200 ####[facility] [address] [place], [place], [phone] Potassium [Moles/Vol] 4.8 mmol/L Normal 3.3-5.1 [facility] Comment on above: Performed By: #### L 500.4050, L100.0100, L501.2300, L501.5101, L501.4700, L3410.9992, L3400.8500, L3380.1000, L501.5200 ####[facility] [address] [place], [place], [phone] T PROT 6.2 g/dL Normal 5.9-8.4 [facility] Comment on above: Performed By: #### L 500.4050, L100.0100, L501.2300, L501.5101, L501.4700, L3410.9992, L3400.8500, L3380.1000, L501.5200 ####[facility] [address] [place], [place], [phone] AST [Catalytic activity/Vol] 21 U/L Normal <=37 [facility] Comment on above: Performed By: #### L 500.4050, L100.0100, L501.2300, L501.5101, L501.4700, L3410.9992, L3400.8500, L3380.1000, L501.5200 ####[facility] [address] [place], [place], [phone] Cytomegalovirus (CMV) DNA me asurement by PCR (log units/volume)on 10-24-2024 CMV DNA JACKY+probe (P) [Log units/Vol] 3.575 IU/mL . [facility] Comment on above: Result Units: log10 IU/mL Eosinophil percentageon 10-01 Eosinophils/100 WBC (Bld) 0.8 % 0-5 [facility] Erythrocyte distribution wid th ratioon 10-24-2024 Erythrocyte distribution width (RBC) [Ratio] 15.0 % High 11.6-14.6 [facility] Erythrocyte distribution wid th standard deviationon 10-24-2024 Erythrocyte distribution width (RBC) [Ratio] 52.8 fl High 35.1-43.9 [facility] Gamma glutamyl transferase ( GGT) measurementon 10-24-2024 Amylase [Catalytic activity/Vol] 33 U/L 0-65 [facility] Comment on above: Performed at: [address] [id number] Director: Red Graham PhD, Phone: [phone] at: [address] [id number] Director: Sergio Machado MD, Phone: [phone] Glomerular filtration rate ( GFR) estimation/1.73 sq m using serum, plasma, or whole bon 10-24-2024 GFR/1.73 sq M.predicted among non-blacks MDRD (S/P/Bld) [Vol rate/Area] 55 mL/min/{1.73_m2} Low >60 [facility] Comment on above: mL/min/1.73m2 CKD-EP I Creatinine Equation (2020) Result Comment: mL/m in/1.73m2 CKD-EPI Creatinine Equation (2020) Performed By: #### L 500.4050, L100.0100, L501.2300, L501.5101, L501.4700, L3410.9992, L3400.8500, L3380.1000, L501.5200 ####[facility] [address] [place], [address] Hematocrit Auto (Bld) [Volum e fraction]on 10-24-2024 Hematocrit (Bld) [Volume fraction] 27.7 % Low 40-54 [facility] Hemoglobin measurementon Hemoglobin (Bld) [Mass/Vol] 8.7 g/dL Low 13.0-16.5 [facility] Immature granulocytes/100 WB C Auto (Bld)on 10-24-2024 Immature granulocytes/100 WBC (Bld) 0.800 % 0.0-0.9 [facility] Comment on above: IG% - Immature Granu locytes (promyelocytes, myelocytes and metamyelocytes) > 1% indicates that a LEFT SHIFT is Present. MCV (mean corpuscular volume ) determinationon 10-24-2024 MCV (RBC) [Entitic vol] 95.5 fL High 80-94 [facility] MRI PELVIS WITH AND WITHOUT CONTRASTon 10-24-2024 MRI PELVIS WITH AND WITHOUT CONTRAST Normal [facility] Magnesiumon 10-24-2024 Magnesium [Mass/Vol] 2.1 mg/dL Normal 1.5-2.2 [facility] Comment on above: Performed By: #### L 500.4050, L100.0100, L501.2300, L501.5101, L501.4700, L3410.9992, L3400.8500, L3380.1000, L501.5200 ####[facility] [address] [place], [place], [phone] Magnesium measurement (mass/ volume)on 10-24-2024 Magnesium (Unsp spec) [Mass/Vol] 2.1 mg/dL 1.5-2.2 [facility] Mean corpuscular hemoglobin (MCH) determinationon 10-24-2024 MCH (RBC) [Entitic mass] 30.0 pg 27.0-32.0 [facility] Mean corpuscular hemoglobin concentration (MCHC) determinationon 10-24-2024 MCHC (RBC) [Mass/Vol] 31.4 g/dL Low 32-36 [facility] Mean platelet volume determi nationon 10-24-2024 Platelet mean volume (Bld) [Entitic vol] 9.8 fL 6.2-12.0 [facility] Monocyte percentageon 2024 Monocytes/100 WBC (Bld) 4.5 % 0-10 [facility] Neutrophil percentageon 10-01 Neutrophils/100 WBC (Bld) 55.3 % 47-70 [facility] No Panel Informationon 10-24 21 U/L <38 [facility] Nucleated red blood cell per centageon 10-24-2024 Nucleated RBC/100 WBC (Bld) [Ratio] 0 % 0-5 [facility] Phosphoruson 10-24-2024 Phosphate [Mass/Vol] 3.3 mg/dL Normal 2.7-4.5 [facility] Comment on above: Performed By: #### L 500.4050, L100.0100, L501.2300, L501.5101, L501.4700, L3410.9992, L3400.8500, L3380.1000, L501.5200 ####[facility] [address] [place], [place], [phone] Platelet counton 10-24-2024 Platelets (Bld) [#/Vol] 506 10*3/uL High 150-450 [facility] Potassium measurement (mass/ volume)on 10-24-2024 Potassium (Unsp spec) [Mass/Vol] 4.8 mmol/L 3.3-5.1 [facility] RBC Auto (Bld) [#/Vol]on RBC (Bld) [#/Vol] 2.90 10*6/uL Low 4.6-6.2 [facility] Serum creatinine measurement (mass/volume)on 10-24-2024 Creatinine [Mass/Vol] 1.46 mg/dL High 0.70-1.20 [facility] Comment on above: Performed By: #### L 500.4050, L100.0100, L501.2300, L501.5101, L501.4700, L3410.9992, L3400.8500, L3380.1000, L501.5200 ####[facility] [address] [place], [place], [phone] Serum globulin measurementon 10-24-2024 Globulin (S) [Mass/Vol] 2.6 g/dL Normal 2.2-4.2 [facility] Comment on above: Performed By: #### L 500.4050, L100.0100, L501.2300, L501.5101, L501.4700, L3410.9992, L3400.8500, L3380.1000, L501.5200 ####[facility] [address] [place], [place], [phone] Serum glucose measurement (m ass/volume)on 10-24-2024 Glucose [Mass/Vol] 87 mg/dL Normal 70-99 [facility] Comment on above: Performed By: #### L 500.4050, L100.0100, L501.2300, L501.5101, L501.4700, L3410.9992, L3400.8500, L3380.1000, L501.5200 ####[facility] [address] [place], [address] Serum or plasma alanine craig otransferase (ALT) measurementon 10-24-2024 ALT [Catalytic activity/Vol] 11 U/L Normal <=46 [facility] Comment on above: Performed By: #### L 500.4050, L100.0100, L501.2300, L501.5101, L501.4700, L3410.9992, L3400.8500, L3380.1000, L501.5200 ####[facility] [address] [place], [address] Serum or plasma albumin megha urement (mass/volume)on 10-24-2024 Albumin [Mass/Vol] 3.6 g/dL Normal 3.4-4.8 [facility] Comment on above: Performed By: #### L 500.4050, L100.0100, L501.2300, L501.5101, L501.4700, L3410.9992, L3400.8500, L3380.1000, L501.5200 ####[facility] [address] [place], [address] Serum or plasma albumin/glob ulin mass ratioon 10-24-2024 Albumin/Globulin [Mass ratio] 1.4 {ratio} Normal 0.9-2.4 [facility] Comment on above: Performed By: #### L 500.4050, L100.0100, L501.2300, L501.5101, L501.4700, L3410.9992, L3400.8500, L3380.1000, L501.5200 ####[facility] [address] [place], [address] Serum or plasma alkaline sal sphatase measurementon 10-24-2024 ALP [Catalytic activity/Vol] 148 U/L High 40-129 [facility] Serum or plasma calcium megha urement (mass/volume)on 10-24-2024 Calcium [Mass/Vol] 9.1 mg/dL Normal 7.6-11.0 [facility] Comment on above: Performed By: #### L 500.4050, L100.0100, L501.2300, L501.5101, L501.4700, L3410.9992, L3400.8500, L3380.1000, L501.5200 ####[facility] [address] [place], [address] Serum or plasma urea nitroge n measurement (mass/volume)on 10-24-2024 Urea nitrogen [Mass/Vol] 23 mg/dL High - [facility] Comment on above: Performed By: #### L 500.4050, L100.0100, L501.2300, L501.5101, L501.4700, L3410.9992, L3400.8500, L3380.1000, L501.5200 ####[facility] [address] [place], [place], [phone] Sodium levelon 10-24-2024 Sodium [Moles/Vol] 138 mmol/L Normal 133-145 [facility] Comment on above: Performed By: #### L 500.4050, L100.0100, L501.2300, L501.5101, L501.4700, L3410.9992, L3400.8500, L3380.1000, L501.5200 ####[facility] [address] [place], [place], [phone] Total proteinon 10-24-2024 Protein [Mass/Vol] 6.2 g/dL 5.9-8.4 [facility] White blood cell (WBC) count on 10-24-2024 WBC (Bld) [#/Vol] 2.5 10*3/uL Low 4.4-11.0 [facility] L3400.8500on 10-20-2024 CMV Quant DNA 3340 IU/mL Normal Negative [facility] Comment on above: Order Comment: Test( s) [id number]-Bplhsqrsux (FK506), Bloodwas developed and its performance characteristicsdetermined by [facility]. It has not been cleared or approvedby the Food and Drug Administration. Result Comment: The quantitative range of this assay is 200 to 1 millionIU/mL. Performed By: #### L 100.0100, L500.4050, L501.5200, L3380.1000, L501.2300, L501.4700, L3400.8500, L501.5101 ####[facility] [address] [place], [place], [phone] CMV Quant DNA 3.524 Normal . [facility] Comment on above: Order Comment: Test( s) [id number]-Dkbbjnkkwf (FK506), Bloodwas developed and its performance characteristicsdetermined by [facility]. It has not been cleared or approvedby the Food and Drug Administration. Result Comment: Resu lt Units: log10 IU/mL Performed By: #### L 100.0100, L500.4050, L501.5200, L3380.1000, L501.2300, L501.4700, L3400.8500, L501.5101 ####[facility] [address] [place], [place], [phone] L501.5101on 10-20-2024 GGTP 47 IU/L Normal 0-65 [facility] Comment on above: Order Comment: Test( s) 427452-Tmoxzlzgjd (FK506), Bloodwas developed and its performance characteristicsdetermined by [facility]. It has not been cleared or approvedby the Food and Drug Administration. Result Comment: Perf ormed at: [facility] [address] [id number] Director: Red Graham PhD, Phone: [phone] at: [facility] [address] [id number] Director: Sergio Machado MD, Phone: [phone] Performed By: #### L 100.0100, L500.4050, L501.5200, L3380.1000, L501.2300, L501.4700, L3400.8500, L501.5101 ####[facility] [address] [place], [place], [phone] Tacrolimus (Prograf)on 10-20 Tacrolimus (Bld) [Mass/Vol] 5.9 ng/mL Normal 5.0-20.0 [facility] Comment on above: Order Comment: Test( s) [id number]-Pgbbljxztj (FK506), Bloodwas developed and its performance characteristicsdetermined by [facility]. It has not been cleared or approvedby the Food and Drug Administration. Result Comment: Targ et steady state trough concentration forTacrolimus varies based on type of organ transplantimmunosuppressive protocol and other patient specificfactors. Tacrolimus trough concentrations should beinterpreted in conjunction with clinical assessmentsof rejection and tolerability. Values obtained withdifferent assay methods cannot be used interchangeablydue to differences in assay methods and cross-reactivtywith metabolites, nor should correction factors beapplied. Therefore, consistent use of one assay forindividual patients is recommended.Detection Limit = 0.5 ng/mLPerformed by LC-MS/MS technology. Performed By: #### L 100.0100, L500.4050, L501.5200, L3380.1000, L501.2300, L501.4700, L3400.8500, L501.5101 ####[facility] [address] [place], [place], [address] Bilirubin, Directon 10-18-19 Bilirubin.direct [Mass/Vol] 0.19 mg/dL Normal 0.00-0.30 [facility] Comment on above: Performed By: #### L 100.0100, L500.4050, L501.5200, L3380.1000, L501.2300, L501.4700, L3400.8500, L501.5101 ####[facility] [address] [place], [place], [phone] CBC W/Diff, Automatedon 08-1 8-2025 OVALOCYTE 1+ Normal [facility] Comment on above: Performed By: #### L 100.0100, L500.4050, L501.5200, L3380.1000, L501.2300, L501.4700, L3400.8500, L501.5101 ####[facility] [address] [place], [address] PLT EST ADEQUATE Normal ADEQ [facility] Comment on above: Performed By: #### L 100.0100, L500.4050, L501.5200, L3380.1000, L501.2300, L501.4700, L3400.8500, L501.5101 ####[facility] [address] [place], [address] ATYPICAL LYMPH 3+ Normal [facility] Comment on above: Performed By: #### L 100.0100, L500.4050, L501.5200, L3380.1000, L501.2300, L501.4700, L3400.8500, L501.5101 ####[facility] [address] [place], [place], [id number] Comprehensive Metabolic Prof [facility] 10-17-2024 Albumin [Mass/Vol] 3.5 g/dL Normal 3.4-4.8 [facility] Comment on above: Performed By: #### L 100.0100, L500.4050, L501.5200, L3380.1000, L501.2300, L501.4700, L3400.8500, L501.5101 ####[facility] [address] [place], [address] Albumin/Globulin [Mass ratio] 1.3 {ratio} Normal 0.9-2.4 [facility] Comment on above: Performed By: #### L 100.0100, L500.4050, L501.5200, L3380.1000, L501.2300, L501.4700, L3400.8500, L501.5101 ####[facility] [address] [place], [address] ALK PHOS 155 U/L High 40-129 [facility] Comment on above: Performed By: #### L 100.0100, L500.4050, L501.5200, L3380.1000, L501.2300, L501.4700, L3400.8500, L501.5101 ####[facility] [address] [place], [address] ALT [Catalytic activity/Vol] 15 U/L Normal <=46 [facility] Comment on above: Performed By: #### L 100.0100, L500.4050, L501.5200, L3380.1000, L501.2300, L501.4700, L3400.8500, L501.5101 ####[facility] [address] [place], [address] AST [Catalytic activity/Vol] 23 U/L Normal <=37 [facility] Comment on above: Performed By: #### L 100.0100, L500.4050, L501.5200, L3380.1000, L501.2300, L501.4700, L3400.8500, L501.5101 ####[facility] [address] [place], [address] Bilirubin [Mass/Vol] 0.30 mg/dL Normal 0.00-1.30 [facility] Comment on above: Performed By: #### L 100.0100, L500.4050, L501.5200, L3380.1000, L501.2300, L501.4700, L3400.8500, L501.5101 ####[facility] [address] [place], [address] BUN/CRE 18.1 RATIO Normal 10-20 [facility] Comment on above: Performed By: #### L 100.0100, L500.4050, L501.5200, L3380.1000, L501.2300, L501.4700, L3400.8500, L501.5101 ####[facility] [address] [place], [address] Calcium [Mass/Vol] 8.9 mg/dL Normal 7.6-11.0 [facility] Comment on above: Performed By: #### L 100.0100, L500.4050, L501.5200, L3380.1000, L501.2300, L501.4700, L3400.8500, L501.5101 ####[facility] [address] [place], [address] Chloride [Moles/Vol] 103 mmol/L Normal 98-108 [facility] Comment on above: Performed By: #### L 100.0100, L500.4050, L501.5200, L3380.1000, L501.2300, L501.4700, L3400.8500, L501.5101 ####[facility] [address] [place], [address] CO2 [Moles/Vol] 22.1 mmol/L Normal 21.0-32.0 [facility] Comment on above: Performed By: #### L 100.0100, L500.4050, L501.5200, L3380.1000, L501.2300, L501.4700, L3400.8500, L501.5101 ####[facility] [address] [place], [address] Creatinine [Mass/Vol] 1.15 mg/dL Normal 0.70-1.20 [facility] Comment on above: Performed By: #### L 100.0100, L500.4050, L501.5200, L3380.1000, L501.2300, L501.4700, L3400.8500, L501.5101 ####[facility] [address] [place], [address] GAP 11 Normal 5-15 [facility] Comment on above: Performed By: #### L 100.0100, L500.4050, L501.5200, L3380.1000, L501.2300, L501.4700, L3400.8500, L501.5101 ####[facility] [address] [place], [address] GFR/1.73 sq M.predicted among non-blacks MDRD (S/P/Bld) [Vol rate/Area] 73 mL/min/{1.73_m2} Normal >60 [facility] Comment on above: Result Comment: mL/m in/1.73m2 CKD-EPI Creatinine Equation (2020) Performed By: #### L 100.0100, L500.4050, L501.5200, L3380.1000, L501.2300, L501.4700, L3400.8500, L501.5101 ####[facility] [address] [place], [address] Globulin (S) [Mass/Vol] 2.8 g/dL Normal 2.2-4.2 [facility] Comment on above: Performed By: #### L 100.0100, L500.4050, L501.5200, L3380.1000, L501.2300, L501.4700, L3400.8500, L501.5101 ####[facility] [address] [place], [address] Glucose [Mass/Vol] 101 mg/dL High 70-99 [facility] Comment on above: Performed By: #### L 100.0100, L500.4050, L501.5200, L3380.1000, L501.2300, L501.4700, L3400.8500, L501.5101 ####[facility] [address] [place], [address] Potassium [Moles/Vol] 4.7 mmol/L Normal 3.3-5.1 [facility] Comment on above: Performed By: #### L 100.0100, L500.4050, L501.5200, L3380.1000, L501.2300, L501.4700, L3400.8500, L501.5101 ####[facility] [address] [place], [address] Sodium [Moles/Vol] 136 mmol/L Normal 133-145 [facility] Comment on above: Performed By: #### L 100.0100, L500.4050, L501.5200, L3380.1000, L501.2300, L501.4700, L3400.8500, L501.5101 ####[facility] [address] [place], [address] T PROT 6.3 g/dL Normal 5.9-8.4 [facility] Comment on above: Performed By: #### L 100.0100, L500.4050, L501.5200, L3380.1000, L501.2300, L501.4700, L3400.8500, L501.5101 ####[facility] [address] [place], [address] Urea nitrogen [Mass/Vol] 21 mg/dL High 4-19 [facility] Comment on above: Performed By: #### L 100.0100, L500.4050, L501.5200, L3380.1000, L501.2300, L501.4700, L3400.8500, L501.5101 ####[facility] [address] [place], [address] Magnesiumon 10-17-2024 Magnesium [Mass/Vol] 2.1 mg/dL Normal 1.5-2.2 [facility] Comment on above: Performed By: #### L 100.0100, L500.4050, L501.5200, L3380.1000, L501.2300, L501.4700, L3400.8500, L501.5101 ####[facility] [address] [place], [address] Ovalocyte detectionon 2024 Ovalocytes LM Ql (Bld) 1+ [facility] Phosphoruson 10-17-2024 Phosphate [Mass/Vol] 3.0 mg/dL Normal 2.7-4.5 [facility] Comment on above: Performed By: #### L 100.0100, L500.4050, L501.5200, L3380.1000, L501.2300, L501.4700, L3400.8500, L501.5101 ####[facility] [address] [place], [address] Platelet estimateon 10-18-19 25 Platelets LM Ql (Bld) ADEQUATE ADEQ [facility] L3400.8500on 10-15-2024 CMV Quant DNA 50218 IU/mL Normal Negative [facility] Comment on above: Order Comment: Test( s) [id number]-Iyhagbtwbd (FK506), Bloodwas developed and its performance characteristicsdetermined by [facility]. It has not been cleared or approvedby the Food and Drug Administration. Result Comment: The quantitative range of this assay is 200 to 1 millionIU/mL. Performed By: #### L 100.0100, L501.5200, L3400.8500, L3380.1000, L501.5101, L501.4700, L500.4050 ####[facility] [address] [place], [address] CMV Quant DNA 4.164 Normal . [facility] Comment on above: Order Comment: Test( s) [id number] (FK506), Bloodwas developed and its performance characteristicsdetermined by [facility]. It has not been cleared or approvedby the Food and Drug Administration. Result Comment: Resu lt Units: log10 IU/mL Performed By: #### L 100.0100, L501.5200, L3400.8500, L3380.1000, L501.5101, L501.4700, L500.4050 ####[facility] [address] [place], [place], [id number] L501.5101on 10-15-2024 GGTP 71 IU/L Abnormal 0-65 [facility] Comment on above: Order Comment: Test( s) [id number]-Olrjpapjvn (FK506), Bloodwas developed and its performance characteristicsdetermined by [facility]. It has not been cleared or approvedby the Food and Drug Administration. Result Comment: Perf ormed at: - Lab[address] [id number] Director: Red Graham PhD, Phone: [phone] at: [facility] Lab[address] [id number] Director: Sergio Machado MD, Phone: [phone] Performed By: #### L 100.0100, L501.5200, L3400.8500, L3380.1000, L501.5101, L501.4700, L500.4050 ####[facility] [address] [place], [place], [address] Tacrolimus (Prograf)on 10-15 Tacrolimus (Bld) [Mass/Vol] 5.2 ng/mL Normal 5.0-20.0 [facility] Comment on above: Order Comment: Test( s) [id number]-Hkqbfaxmdy (FK506), Bloodwas developed and its performance characteristicsdetermined by [facility]. It has not been cleared or approvedby the Food and Drug Administration. Result Comment: Targ et steady state trough concentration forTacrolimus varies based on type of organ transplantimmunosuppressive protocol and other patient specificfactors. Tacrolimus trough concentrations should beinterpreted in conjunction with clinical assessmentsof rejection and tolerability. Values obtained withdifferent assay methods cannot be used interchangeablydue to differences in assay methods and cross-reactivtywith metabolites, nor should correction factors beapplied. Therefore, consistent use of one assay forindividual patients is recommended.Detection Limit = 0.5 ng/mLPerformed by LC-MS/MS technology. Performed By: #### L 100.0100, L501.5200, L3400.8500, L3380.1000, L501.5101, L501.4700, L500.4050 ####[facility] [address] [place], [address] CBC W/Diff, Automatedon 09-30 PATH REV Reviewed Normal [facility] Comment on above: Result Comment: SEE REPORT IN PATIENT'S EMR AMENDED REPORT 10/13/24 0904 PATH REV previously reported as: June Performed By: #### L 501.5101, L501.5200, L100.0100, L501.2300, L3380.1000, L501.4700, L500.4050, L3400.8500 ####[facility] [address] [place], [place], [address] Bilirubin, Directon 10-13-19 25 Bilirubin.direct [Mass/Vol] 0.23 mg/dL Normal 0.00-0.30 [facility] Comment on above: Performed By: #### L 100.0100, L501.5200, L3400.8500, L3380.1000, L501.5101, L501.4700, L500.4050 ####[facility] [address] [place], [place], [id number] Blood hypersegmented neutrop hil counton 10-12-2024 Neutrophils.hypersegm ented (Bld) [#/Vol] 1+ [facility] Blood spherocyte detection b y light microscopyon 10-12-2024 Spherocytes LM Ql (Bld) 1+ [facility] CBC W/Diff, Automatedon 09-30 PLT EST ADEQUATE Normal ADEQ [facility] Comment on above: Performed By: #### L 100.0100, L501.5200, L3400.8500, L3380.1000, L501.5101, L501.4700, L500.4050 ####[facility] [address] [place], [address] SPHEROCYTE 1+ Abnormal [facility] Comment on above: Performed By: #### L 100.0100, L501.5200, L3400.8500, L3380.1000, L501.5101, L501.4700, L500.4050 ####[facility] [address] [place], [address] HYPERSEG 1+ Abnormal [facility] Comment on above: Performed By: #### L 100.0100, L501.5200, L3400.8500, L3380.1000, L501.5101, L501.4700, L500.4050 ####[facility] [address] [place], [address] REACTIVE LYMPH 2+ Normal [facility] Comment on above: Performed By: #### L 100.0100, L501.5200, L3400.8500, L3380.1000, L501.5101, L501.4700, L500.4050 ####[facility] [address] [place], [address] Comprehensive Metabolic Prof [facility] 10-12-2024 Albumin [Mass/Vol] 3.6 g/dL Normal 3.4-4.8 [facility] Comment on above: Performed By: #### L 100.0100, L501.5200, L3400.8500, L3380.1000, L501.5101, L501.4700, L500.4050 ####[facility] [address] [place], [address] Albumin/Globulin [Mass ratio] 1.3 {ratio} Normal 0.9-2.4 [facility] Comment on above: Performed By: #### L 100.0100, L501.5200, L3400.8500, L3380.1000, L501.5101, L501.4700, L500.4050 ####[facility] [address] [place], [address] ALK PHOS 184 U/L High 40-129 [facility] Comment on above: Performed By: #### L 100.0100, L501.5200, L3400.8500, L3380.1000, L501.5101, L501.4700, L500.4050 ####[facility] [address] [place], [address] ALT [Catalytic activity/Vol] 17 U/L Normal <=46 [facility] Comment on above: Performed By: #### L 100.0100, L501.5200, L3400.8500, L3380.1000, L501.5101, L501.4700, L500.4050 ####[facility] [address] [place], [place], [id number] AST [Catalytic activity/Vol] 23 U/L Normal <=37 [facility] Comment on above: Performed By: #### L 100.0100, L501.5200, L3400.8500, L3380.1000, L501.5101, L501.4700, L500.4050 ####[facility] [address] [place], [place], [id number] Bilirubin [Mass/Vol] 0.34 mg/dL Normal 0.00-1.30 [facility] Comment on above: Performed By: #### L 100.0100, L501.5200, L3400.8500, L3380.1000, L501.5101, L501.4700, L500.4050 ####[facility] [address] [place], [address] BUN/CRE 15.8 RATIO Normal 10-20 [facility] Comment on above: Performed By: #### L 100.0100, L501.5200, L3400.8500, L3380.1000, L501.5101, L501.4700, L500.4050 ####[facility] [address] [place], [address] Calcium [Mass/Vol] 9.1 mg/dL Normal 7.6-11.0 [facility] Comment on above: Performed By: #### L 100.0100, L501.5200, L3400.8500, L3380.1000, L501.5101, L501.4700, L500.4050 ####[facility] [address] [place], [address] Chloride [Moles/Vol] 102 mmol/L Normal 98-108 [facility] Comment on above: Performed By: #### L 100.0100, L501.5200, L3400.8500, L3380.1000, L501.5101, L501.4700, L500.4050 ####[facility] [address] [place], [address] CO2 [Moles/Vol] 20.4 mmol/L Low 21.0-32.0 [facility] Comment on above: Performed By: #### L 100.0100, L501.5200, L3400.8500, L3380.1000, L501.5101, L501.4700, L500.4050 ####[facility] [address] [place], [address] Creatinine [Mass/Vol] 1.25 mg/dL High 0.70-1.20 [facility] Comment on above: Performed By: #### L 100.0100, L501.5200, L3400.8500, L3380.1000, L501.5101, L501.4700, L500.4050 ####[facility] [address] [place], [address] GAP 11 Normal 5-15 [facility] Comment on above: Performed By: #### L 100.0100, L501.5200, L3400.8500, L3380.1000, L501.5101, L501.4700, L500.4050 ####[facility] [address] [place], [address] GFR/1.73 sq M.predicted among non-blacks MDRD (S/P/Bld) [Vol rate/Area] 66 mL/min/{1.73_m2} Normal >60 [facility] Comment on above: Result Comment: mL/m in/1.73m2 CKD-EPI Creatinine Equation (2020) Performed By: #### L 100.0100, L501.5200, L3400.8500, L3380.1000, L501.5101, L501.4700, L500.4050 ####[facility] [address] [place], [address] Globulin (S) [Mass/Vol] 2.8 g/dL Normal 2.2-4.2 [facility] Comment on above: Performed By: #### L 100.0100, L501.5200, L3400.8500, L3380.1000, L501.5101, L501.4700, L500.4050 ####[facility] [address] [place], [address] Glucose [Mass/Vol] 94 mg/dL Normal 70-99 [facility] Comment on above: Performed By: #### L 100.0100, L501.5200, L3400.8500, L3380.1000, L501.5101, L501.4700, L500.4050 ####[facility] [address] [place], [address] Potassium [Moles/Vol] 4.6 mmol/L Normal 3.3-5.1 [facility] Comment on above: Performed By: #### L 100.0100, L501.5200, L3400.8500, L3380.1000, L501.5101, L501.4700, L500.4050 ####[facility] [address] [place], [address] Sodium [Moles/Vol] 133 mmol/L Normal 133-145 [facility] Comment on above: Performed By: #### L 100.0100, L501.5200, L3400.8500, L3380.1000, L501.5101, L501.4700, L500.4050 ####[facility] [address] [place], [address] T PROT 6.4 g/dL Normal 5.9-8.4 [facility] Comment on above: Performed By: #### L 100.0100, L501.5200, L3400.8500, L3380.1000, L501.5101, L501.4700, L500.4050 ####[facility] [address] [place], [address] Urea nitrogen [Mass/Vol] 20 mg/dL High 4-19 [facility] Comment on above: Performed By: #### L 100.0100, L501.5200, L3400.8500, L3380.1000, L501.5101, L501.4700, L500.4050 ####[facility] [address] [place], [address] Magnesiumon 10-12-2024 Magnesium [Mass/Vol] 1.9 mg/dL Normal 1.5-2.2 [facility] Comment on above: Performed By: #### L 100.0100, L501.5200, L3400.8500, L3380.1000, L501.5101, L501.4700, L500.4050 ####[facility] [address] [place], [address] ALBUMINon 10-10-2024 Albumin [Mass/Vol] 3.8 g/dL 3.5 - 5.0 g/dL [facility] Albumin [Mass/Vol] 3.8 g/dL Normal 3.5-5.0 [facility] Comment on above: Performed By: #### I PB, ALB ####[facility] (DEFAULT)[address] [place] [address] ALP ALT Sugar 10-10-2024 ALP [Catalytic activity/Vol] 172 U/L High 32 - 126 U/L [facility] ALT [Catalytic activity/Vol] 17 U/L 10 - 52 U/L [facility] AST [Catalytic activity/Vol] 21 U/L 10 - 39 U/L [facility] ALP [Catalytic activity/Vol] 172 U/L High 32-126 [facility] Comment on above: Performed By: #### C HM7, MGO, GGTB, CA, BILI, ENZ3 ####[facility] (DEFAULT)[address] [place] [address] ALT [Catalytic activity/Vol] 17 U/L Normal 10-52 [facility] Comment on above: Performed By: #### C HM7, MGO, GGTB, CA, BILI, ENZ3 ####[facility] (DEFAULT)[address] [facility] [place] [address] AST [Catalytic activity/Vol] 21 U/L Normal 10-39 [facility] Comment on above: Performed By: #### C HM7, MGO, GGTB, CA, BILI, ENZ3 ####[facility] (DEFAULT)[address] [place] [address] BILIRUBIN, TOTAL AND DIRECTo n 10-10-2024 Bilirubin [Mass/Vol] 0.5 mg/dL NINF - 1.5 mg/dL [facility] Bilirubin.direct [Mass/Vol] 0.1 mg/dL NINF - 0.3 mg/dL [facility] Bilirubin [Mass/Vol] 0.5 mg/dL Normal <1.5 [facility] Comment on above: Performed By: #### C HM7, MGO, GGTB, CA, BILI, ENZ3 ####[facility] (DEFAULT)[address] [place] [address] Bilirubin.indirect [Mass/Vol] 0.1 mg/dL Normal <0.3 [facility] Comment on above: Performed By: #### C HM7, MGO, GGTB, CA, BILI, ENZ3 ####[facility] (DEFAULT)[address] [place] [address] CALCIUMon 10-10-2024 Calcium [Mass/Vol] 8.8 mg/dL 8.6 - 10. 5 mg/dL [facility] Calcium [Mass/Vol] 8.8 mg/dL Normal 8.6-10.5 [facility] Comment on above: Performed By: #### C HM7, MGO, GGTB, CA, BILI, ENZ3 ####[facility] (DEFAULT)[address] [place] [address] CBC AND ELECTRONIC DIFFon Basophils (Bld) [#/Vol] K/uL 0.00 - 0.09 K/uL [facility] Basophils/100 WBC (Bld) 0.6 % [facility] Differential cell count method Nom (Bld) Electronic Differential [facility] Eosinophils (Bld) [#/Vol] 0.12 10*3/uL 0.00 - 0.48 K/uL [facility] Eosinophils/100 WBC (Bld) 3.6 % [facility] Erythrocyte distribution width (RBC) [Ratio] 15.0 % High 10.9 - 14.3 % [facility] Hematocrit (Bld) [Volume fraction] 29.7 % Low 39.6 - 48.8 % [facility] Hemoglobin (Bld) [Mass/Vol] 9.3 g/dL Low 13.4 - 16.8 g/dL [facility] Immature granulocytes (Bld) [#/Vol] K/uL NINF - 0.07 K/uL [facility] Immature granulocytes/100 WBC (Bld) 0.9 % [facility] Interpretation and review of laboratory results Abnormal [facility] Lymphocytes (Bld) [#/Vol] 0.68 10*3/uL Low 0.83 - 3.57 K/uL [facility] Lymphocytes/100 WBC (Bld) 20.4 % [facility] MCH (RBC) [Entitic mass] 30.2 pg 26.1 - 33.3 pg [facility] MCHC (RBC) [Mass/Vol] 31.3 g/dL Low 31.9 - 36.5 g/dL [facility] MCV (RBC) [Entitic vol] 96.4 fL High 79.0 - 94.5 fL [facility] Monocytes (Bld) [#/Vol] 0.26 10*3/uL 0.24 - 0.93 K/uL [facility] Monocytes/100 WBC (Bld) 7.8 % [facility] Neutrophils (Bld) [#/Vol] 2.22 10*3/uL 1.57 - 6.19 K/uL [facility] Nucleated RBC/100 WBC (Bld) [Ratio] 0.0 % NINF [facility] Platelet mean volume (Bld) [Entitic vol] 10.4 fL 8.7 - 12.3 fL [facility] Platelets (Bld) [#/Vol] 341 10*3/uL High 146 - 337 K/uL [facility] RBC (Bld) [#/Vol] 3.08 10*6/uL Low [facility] Segmented neutrophils/100 WBC (Bld) 66.7 % [facility] WBC (Bld) [#/Vol] 3.33 10*3/uL Low 3.73 - 10. 10 K/uL [facility] Abs Baso Auto < Normal 0.00-0.09 [facility] Comment on above: Performed By: #### L [id number] ####[facility] (DEFAULT)[address] [place] [address] Basophils/100 WBC (Bld) 0.6 % Normal [facility] Comment on above: Performed By: #### L AB980 ####[facility] (DEFAULT)[address] [facility] [place] [address] DIFF STATUS Electronic Differential Normal [facility] Comment on above: Performed By: #### L AB980 ####[facility] (DEFAULT)[address] [place] [address], [place] [address] Eosinophils (Bld) [#/Vol] 0.12 10*3/uL Normal 0.00-0.48 [facility] Comment on above: Performed By: #### L AB980 ####[facility] (DEFAULT)[address] [place] [address], [place] [address] Eosinophils/100 WBC (Bld) 3.6 % Normal [facility] Comment on above: Performed By: #### L [id number] ####[facility] (DEFAULT)[address] [place] [address], [place] [address] Hematocrit (Bld) [Volume fraction] 29.7 % Low 39.6-48.8 [facility] Comment on above: Performed By: #### L [id number] ####[facility] (DEFAULT)[address] [place] [address], [place] [address] Hemoglobin (Bld) [Mass/Vol] 9.3 g/dL Low 13.4-16.8 [facility] Comment on above: Performed By: #### L [id number] ####[facility] (DEFAULT)[address] [place] [address] Immature Grans % 0.9 % Normal [facility] Comment on above: Performed By: #### L [id number] ####[facility] (DEFAULT)[address] [place] [address], [place] [address] Immature Grans Absolute < Normal <=0.07 [facility] Comment on above: Performed By: #### L [id number] ####[facility] (DEFAULT)[address] [place] [address] Lymphocytes (Bld) [#/Vol] 0.68 10*3/uL Low 0.83-3.57 [facility] Comment on above: Performed By: #### L AB980 ####[facility] (DEFAULT)[address] [place] [address] Lymphocytes/100 WBC (Bld) 20.4 % Normal [facility] Comment on above: Performed By: #### L AB980 ####[facility] (DEFAULT)[address] [facility] [place] [address] MCV (RBC) [Entitic vol] 96.4 fL High 79.0-94.5 [facility] Comment on above: Performed By: #### L AB980 ####[facility] (DEFAULT)[address] [facility] [place] [place] [address] Mean Cell Hgb 30.2 pg Normal 26.1-33.3 [facility] Comment on above: Performed By: #### L AB980 ####[facility] (DEFAULT)[address] [facility] [place] [place] [address] Mean Cell Hgb Conc 31.3 g/dL Low 31.9-36.5 [facility] Comment on above: Performed By: #### L AB980 ####[facility] (DEFAULT)[address] [facility] [place] [address] Monocytes (Bld) [#/Vol] 0.26 10*3/uL Normal 0.24-0.93 [facility] Comment on above: Performed By: #### L AB980 ####[facility] (DEFAULT)[address] [facility] [place] [place] [address] Monocytes/100 WBC (Bld) 7.8 % Normal [facility] Comment on above: Performed By: #### L AB980 ####[facility] (DEFAULT)[address] [facility] [place] [place] [address] Nucleated RBC 0.0 /100 WBC Normal <=0.2 [facility] Comment on above: Performed By: #### L AB980 ####[facility] (DEFAULT)[address] [place] [address] Platelet mean volume (Bld) [Entitic vol] 10.4 fL Normal 8.7-12.3 [facility] Comment on above: Performed By: #### L AB980 ####[facility] (DEFAULT)[address] [place] [address] Platelets (Bld) [#/Vol] 341 10*3/uL High 146-337 [facility] Comment on above: Performed By: #### L AB980 ####[facility] (DEFAULT)[address] [place] [address] RBC (Bld) [#/Vol] 3.08 10*6/uL Low 4.38-5.83 [facility] Comment on above: Performed By: #### L AB980 ####[facility] (DEFAULT)[address] [place] [address] RBC Distribution 15.0 % High 10.9-14.3 [facility] Comment on above: Performed By: #### L AB980 ####[facility] (DEFAULT)[address] [place] [address] Segs + Bands Auto 66.7 % Normal [facility] Comment on above: Performed By: #### L AB980 ####[facility] (DEFAULT)[address] [place] [address] Segs + Bands,Absolute Auto 2.22 K/uL Normal 1.57-6.19 [facility] Comment on above: Performed By: #### L AB980 ####[facility] (DEFAULT)[address] [place] [address] WBC (Bld) [#/Vol] 3.33 10*3/uL Low 3.73-10.10 [facility] Comment on above: Performed By: #### L AB980 ####[facility] (DEFAULT)[address] [place] [address] CHEM 7 (LYTES,BUN,CREA,GLUC) on 10-10-2024 Anion gap [Moles/Vol] 14 mmol/L 7 - 17 mmol/L [facility] Chloride [Moles/Vol] 101 mmol/L 98 - 10 8 mmol/L [facility] CO2 [Moles/Vol] 24 mmol/L 21 - 31 mmol/L [facility] Creatinine [Mass/Vol] 1.24 mg/dL 0.70 - 1.30 mg/dL [facility] eGFR, CKD-EPI, Male 66 - PINF [facility] Comment on above: Reported eGFR is bas ed on the CKD-EPI 2020 equation using creatinine, age, and sex. Glucose [Mass/Vol] 86 mg/dL 70 - 179 mg/dL [facility] Osmolality Calc [Osmolality] 285 [facility] Potassium [Moles/Vol] 4.6 mmol/L 3.5 - 5.0 mmol/L [facility] Sodium [Moles/Vol] 134 mmol/L Low 135 - 145 mmol/L [facility] Urea nitrogen [Mass/Vol] 22 mg/dL 7 - 25 mg/dL [facility] Urea nitrogen/Creatinine [Mass ratio] 18 mg/mg [facility] Anion gap [Moles/Vol] 14 mmol/L Normal 7-17 [facility] Comment on above: Performed By: #### C HM7, MGO, GGTB, CA, BILI, ENZ3 ####[facility] (DEFAULT)[address] [place] [address] Chloride [Moles/Vol] 101 mmol/L Normal 98-108 [facility] Comment on above: Performed By: #### C HM7, MGO, GGTB, CA, BILI, ENZ3 ####[facility] (DEFAULT)[address] [place] [address] CO2 [Moles/Vol] 24 mmol/L Normal 21-31 [facility] Comment on above: Performed By: #### C HM7, MGO, GGTB, CA, BILI, ENZ3 ####[facility] (DEFAULT)[address] [facility] [place] [address] Creatinine [Mass/Vol] 1.24 mg/dL Normal 0.70-1.30 [facility] Comment on above: Performed By: #### C HM7, MGO, GGTB, CA, BILI, ENZ3 ####[facility] (DEFAULT)[address] [place] [address] GFR/1.73 sq M.predicted among non-blacks MDRD (S/P/Bld) [Vol rate/Area] 67 mL/min/{1.73_m2} Normal >=60 [facility] Comment on above: Result Comment: Repo rted eGFR is based on the CKD-EPI 2020 equation using creatinine, age, and sex. Performed By: #### C HM7, MGO, GGTB, CA, BILI, ENZ3 ####[facility] (DEFAULT)[address] [place] [address] Glucose [Mass/Vol] 86 mg/dL Normal Nonfastin -179 mg/dL; Fastin-99 [facility] Comment on above: Performed By: #### C HM7, MGO, GGTB, CA, BILI, ENZ3 ####[facility] (DEFAULT)[address] [place] [address] Osmolality [Osmolality] 285 mosm/kg Normal 278-305 [facility] Comment on above: Performed By: #### C HM7, MGO, GGTB, CA, BILI, ENZ3 ####[facility] (DEFAULT)[address] [facility] [place] [address] Potassium [Moles/Vol] 4.6 mmol/L Normal 3.5-5.0 [facility] Comment on above: Performed By: #### C HM7, MGO, GGTB, CA, BILI, ENZ3 ####[facility] (DEFAULT)[address] [place] [address] Sodium [Moles/Vol] 134 mmol/L Low 135-145 [facility] Comment on above: Performed By: #### C HM7, MGO, GGTB, CA, BILI, ENZ3 ####[facility] (DEFAULT)[address] [place] [address] Urea nitrogen [Mass/Vol] 22 mg/dL Normal 7-25 [facility] Comment on above: Performed By: #### C HM7, MGO, GGTB, CA, BILI, ENZ3 ####[facility] (DEFAULT)[address] [facility] [place] [address] Urea nitrogen/Creatinine [Mass ratio] 18 mg/mg Normal [facility] Comment on above: Performed By: #### C HM7, MGO, GGTB, CA, BILI, ENZ3 ####[facility] (DEFAULT)[address] [place] [address] GGTon 10-10-2024 Gamma glutamyl transferase [Catalytic activity/Vol] 81 U/L High 8 - 64 U/L [facility] Gamma glutamyl transferase [Catalytic activity/Vol] 81 U/L High 8-64 [facility] Comment on above: Performed By: #### C HM7, MGO, GGTB, CA, BILI, ENZ3 ####[facility] (DEFAULT)[address] [place] [address] MAGNESIUMon 10-10-2024 Magnesium [Mass/Vol] 1.7 mg/dL 1.6 - 2 .6 mg/dL [facility] Magnesium [Mass/Vol] 1.7 mg/dL Normal 1.6-2.6 [facility] Comment on above: Performed By: #### C HM7, MGO, GGTB, CA, BILI, ENZ3 ####[facility] (DEFAULT)[address] [place] [address] No Panel Informationon 10-10 Interpretation and review of laboratory results Normal [facility] Interpretation and review of laboratory results Abnormal [facility] Interpretation and review of laboratory results Normal [facility] PHOSPHATE, INORGANICon 10-10 Phosphate [Mass/Vol] 3.3 mg/dL 2.2 - 4 .6 mg/dL [facility] Phosphorous 3.3 mg/dL Normal 2.2-4.6 [facility] Comment on above: Performed By: #### I PB, ALB ####[facility] (DEFAULT)[address] [place] [address] L3400.8500on 10-05-2024 CMV Quant DNA Positive Normal Negative [facility] Comment on above: Order Comment: Test( s) [id number]-Geqtazcvdx (FK506), Bloodwas developed and its performance characteristicsdetermined by [email or web address]. It has not been cleared or approvedby the Food and Drug Administration. Result Comment: CMV DNA detected.The quantitative range of this assay is 200 to 1 millionIU/mL. Performed By: #### L 501.5101, L501.5200, L100.0100, L501.2300, L3380.1000, L501.4700, L500.4050, L3400.8500 ####[facility] [address] [place], [place], [id number] CMV Quant DNA TNP Normal . [facility] Comment on above: Order Comment: Test( s) [id number]-Kwkjdbasni (FK506), Bloodwas developed and its performance characteristicsdetermined by [email or web address]. It has not been cleared or approvedby the Food and Drug Administration. Result Comment: Resu lt Units: log10 IU/mLUnable to calculate result since non-numeric resultobtained for component test. Performed By: #### L 501.5101, L501.5200, L100.0100, L501.2300, L3380.1000, L501.4700, L500.4050, L3400.8500 ####[facility] [address] [place], [place], [id number] L501.5101on 10-05-2024 GGTP 167 IU/L Abnormal 0-65 [facility] Comment on above: Order Comment: Test( s) [id number]-Beycgpeogt (FK506), Bloodwas developed and its performance characteristicsdetermined by [employer]. It has not been cleared or approvedby the Food and Drug Administration. Result Comment: Perf ormed at: [facility] Lab[address] [id number] Director: Sergio Machado MD, Phone: [phone] at: [address] [id number] Director: Red Graham PhD, Phone: [phone] Performed By: #### L 501.5101, L501.5200, L100.0100, L501.2300, L3380.1000, L501.4700, L500.4050, L3400.8500 ####[facility] [address] [place], [place], [phone] Tacrolimus (Prograf)on 10-05 Tacrolimus (Bld) [Mass/Vol] 10.2 ng/mL Normal 5.0-20.0 [facility] Comment on above: Order Comment: Test( s) [id number]-Aovryaedhv (FK506), Bloodwas developed and its performance characteristicsdetermined by [employer]. It has not been cleared or approvedby the Food and Drug Administration. Result Comment: Targ et steady state trough concentration forTacrolimus varies based on type of organ transplantimmunosuppressive protocol and other patient specificfactors. Tacrolimus trough concentrations should beinterpreted in conjunction with clinical assessmentsof rejection and tolerability. Values obtained withdifferent assay methods cannot be used interchangeablydue to differences in assay methods and cross-reactivtywith metabolites, nor should correction factors beapplied. Therefore, consistent use of one assay forindividual patients is recommended.Detection Limit = 0.5 ng/mLPerformed by LC-MS/MS technology. Performed By: #### L 501.5101, L501.5200, L100.0100, L501.2300, L3380.1000, L501.4700, L500.4050, L3400.8500 ####[facility] [address] [place], [place], [id number] Bilirubin, Directon 10-04-19 25 Bilirubin.direct [Mass/Vol] 1.48 mg/dL High 0.00-0.30 [facility] Comment on above: Performed By: #### L 501.5101, L501.5200, L100.0100, L501.2300, L3380.1000, L501.4700, L500.4050, L3400.8500 ####[facility] [address] [place], [address] Blood eosinophils/100 leukoc yteson 10-03-2024 Eosinophils/100 WBC (Bld) 8 % High 0-5 [facility] Blood lymphocytes/100 leukoc yteson 10-03-2024 Lymphocytes/100 WBC (Bld) 7 % Low 19-41 [facility] Blood metamyelocytes/100 susy kocyteson 10-03-2024 Metamyelocytes/100 WBC (Bld) 2 % High 0-1 [facility] Blood monocytes/100 leukocyt eson 10-03-2024 Monocytes/100 WBC (Bld) 2 % 0-10 [facility] Blood segmented neutrophils/ 100 leukocyteson 10-03-2024 Segmented neutrophils/100 WBC (Bld) 81 % High 47-70 [facility] Comprehensive Metabolic Prof ilon 10-03-2024 Albumin [Mass/Vol] 3.4 g/dL Normal 3.4-4.8 [facility] Comment on above: Order Comment: GG Performed By: #### L 501.5101, L501.5200, L100.0100, L501.2300, L3380.1000, L501.4700, L500.4050, L3400.8500 ####[facility] [address] [place], [address] Albumin/Globulin [Mass ratio] 1.3 {ratio} Normal 0.9-2.4 [facility] Comment on above: Order Comment: GG Performed By: #### L 501.5101, L501.5200, L100.0100, L501.2300, L3380.1000, L501.4700, L500.4050, L3400.8500 ####[facility] [address] [place], [address] ALK PHOS 266 U/L High 40-129 [facility] Comment on above: Order Comment: GG Performed By: #### L 501.5101, L501.5200, L100.0100, L501.2300, L3380.1000, L501.4700, L500.4050, L3400.8500 ####[facility] [address] [place], [place], [phone](235) ALT [Catalytic activity/Vol] 71 U/L High <=46 [facility] Comment on above: Order Comment: GG Performed By: #### L 501.5101, L501.5200, L100.0100, L501.2300, L3380.1000, L501.4700, L500.4050, L3400.8500 ####[facility] [address] [place], [address] AST [Catalytic activity/Vol] 67 U/L High <=37 [facility] Comment on above: Order Comment: GG Performed By: #### L 501.5101, L501.5200, L100.0100, L501.2300, L3380.1000, L501.4700, L500.4050, L3400.8500 ####[facility] [address] [place], [address] Bilirubin [Mass/Vol] 1.67 mg/dL High 0.00-1.30 [facility] Comment on above: Order Comment: GG Performed By: #### L 501.5101, L501.5200, L100.0100, L501.2300, L3380.1000, L501.4700, L500.4050, L3400.8500 ####[facility] [address] [place], [address] BUN/CRE 22.8 RATIO High 10-20 [facility] Comment on above: Order Comment: GG Performed By: #### L 501.5101, L501.5200, L100.0100, L501.2300, L3380.1000, L501.4700, L500.4050, L3400.8500 ####[facility] [address] [place], [address] Calcium [Mass/Vol] 9.0 mg/dL Normal 7.6-11.0 [facility] Comment on above: Order Comment: GG Performed By: #### L 501.5101, L501.5200, L100.0100, L501.2300, L3380.1000, L501.4700, L500.4050, L3400.8500 ####[facility] [address] [place], [address] Chloride [Moles/Vol] 103 mmol/L Normal 98-108 [facility] Comment on above: Order Comment: GG Performed By: #### L 501.5101, L501.5200, L100.0100, L501.2300, L3380.1000, L501.4700, L500.4050, L3400.8500 ####[facility] [address] [place], [address] CO2 [Moles/Vol] 21.7 mmol/L Normal 21.0-32.0 [facility] Comment on above: Order Comment: GG Performed By: #### L 501.5101, L501.5200, L100.0100, L501.2300, L3380.1000, L501.4700, L500.4050, L3400.8500 ####[facility] [address] [place], [address] Creatinine [Mass/Vol] 1.58 mg/dL High 0.70-1.20 [facility] Comment on above: Order Comment: GG Performed By: #### L 501.5101, L501.5200, L100.0100, L501.2300, L3380.1000, L501.4700, L500.4050, L3400.8500 ####[facility] [address] [place], [address] GAP 11 Normal 5-15 [facility] Comment on above: Order Comment: GG Performed By: #### L 501.5101, L501.5200, L100.0100, L501.2300, L3380.1000, L501.4700, L500.4050, L3400.8500 ####[facility] [address] [place], [place], [id number] GFR/1.73 sq M.predicted among non-blacks MDRD (S/P/Bld) [Vol rate/Area] 50 mL/min/{1.73_m2} Low >60 [facility] Comment on above: Order Comment: GG Result Comment: mL/m in/1.73m2 CKD-EPI Creatinine Equation (2020) Performed By: #### L 501.5101, L501.5200, L100.0100, L501.2300, L3380.1000, L501.4700, L500.4050, L3400.8500 ####[facility] [address] [place], [address] Globulin (S) [Mass/Vol] 2.7 g/dL Normal 2.2-4.2 [facility] Comment on above: Order Comment: GG Performed By: #### L 501.5101, L501.5200, L100.0100, L501.2300, L3380.1000, L501.4700, L500.4050, L3400.8500 ####[facility] [address] [place], [address] Glucose [Mass/Vol] 138 mg/dL High 70-99 [facility] Comment on above: Order Comment: GG Performed By: #### L 501.5101, L501.5200, L100.0100, L501.2300, L3380.1000, L501.4700, L500.4050, L3400.8500 ####[facility] [address] [place], [address] Potassium [Moles/Vol] 4.3 mmol/L Normal 3.3-5.1 [facility] Comment on above: Order Comment: GG Performed By: #### L 501.5101, L501.5200, L100.0100, L501.2300, L3380.1000, L501.4700, L500.4050, L3400.8500 ####[facility] [address] [place], [address] Sodium [Moles/Vol] 136 mmol/L Normal 133-145 [facility] Comment on above: Order Comment: GG Performed By: #### L 501.5101, L501.5200, L100.0100, L501.2300, L3380.1000, L501.4700, L500.4050, L3400.8500 ####[facility] [address] [place], [address] T PROT 6.1 g/dL Normal 5.9-8.4 [facility] Comment on above: Order Comment: GG Performed By: #### L 501.5101, L501.5200, L100.0100, L501.2300, L3380.1000, L501.4700, L500.4050, L3400.8500 ####[facility] [address] [place], [address] Urea nitrogen [Mass/Vol] 36 mg/dL High 4-19 [facility] Comment on above: Order Comment: GG Performed By: #### L 501.5101, L501.5200, L100.0100, L501.2300, L3380.1000, L501.4700, L500.4050, L3400.8500 ####[facility] [address] [place], [address] Magnesiumon 10-03-2024 Magnesium [Mass/Vol] 2.1 mg/dL Normal 1.5-2.2 [facility] Comment on above: Performed By: #### L 501.5101, L501.5200, L100.0100, L501.2300, L3380.1000, L501.4700, L500.4050, L3400.8500 ####[facility] [address] [place], [address] Phosphoruson 10-03-2024 Phosphate [Mass/Vol] 2.3 mg/dL Low 2.7-4.5 [facility] Comment on above: Performed By: #### L 501.5101, L501.5200, L100.0100, L501.2300, L3380.1000, L501.4700, L500.4050, L3400.8500 ####[facility] [address] [facility] [place], [address] Review by pathologiston Pathologist review Deandre (Unsp spec) [Interp] Reviewed [facility] Comment on above: Previous reported re sult: Patricia delgado Edited by: SAMIR on 10/13/24:0904SEE REPORT IN PATIENT'S EMR AMENDED REPORT 10/13/24 0904 PATH REV previously reported as: Patricia delgado Total cell counton 5 Cells counted [employer] (Bld/Tiss) [#] 100 MANUAL DIFF [facility] L3410.9992on 09-30-2024 [facility] Misc. COMMENT Normal . [facility] Comment on above: Order Comment: [id number] 4PETH LAV WB RT Result Comment: Test Ordered: [id number] Phosphatidylethanol (PEth)PHOSPHATIDYLETHANOL Negative MX Reference Range: .Phosphatidylethanol (PEth) Negative ng/mL MX Reference Range: .Analyzed compound: PEth 16:0/18:1. 3-zkshtxwip-9-xervhm-jf-hrviicn-3-phosphoethanol.Analysis performed by Liquid Chromatography withTandem Mass Spectrometry (LC/MS/MS).Detection limit: 20 ng/mLPEth levels in excess of 20 ng/mL are considered evidenceof moderate to heavy ethanol consumption. However,the Center for Substance Abuse Treatment (CSAT) advisescaution in interpretation and use of biomarkers aloneto assess alcohol use. Results should be interpretedin the context of all available clinical and behavioralinformation.Reference: Substance Abuse and Mental Health Services Administration (2012). The Role of Biomarkers in the Treatment of Alcohol Use Disorders, 2012 Revision. Advisory, Volume 11, Issue 2.This test was developed and its performance characteristicsdetermined by [employer]. It has not been cleared or approvedby the Food and Drug Administration.Performed at: [facility] [address] [id number] Director: Clau Abdalla [facility], Phone: [phone] at: [facility] [address] [id number] Director: Red Graham PhD, Phone: [phone] Performed By: #### L 501.5200, L501.2300, L100.0100, L3400.8500, L501.5101, L3410.9992, L500.4050, L501.4700, L3380.1000 ####[facility] [address] [place], [place], [id number] L3400.8500on 09-28-2024 CMV Quant DNA Negative Normal Negative [facility] Comment on above: Order Comment: Test( s) [id number]-Suzvwgavul (FK506), Bloodwas developed and its performance characteristicsdetermined by [employer]. It has not been cleared or approvedby the Food and Drug Administration. Result Comment: No C MV DNA detected.The quantitative range of this assay is 200 to 1 millionIU/mL. Performed By: #### L 501.5200, L501.2300, L100.0100, L3400.8500, L501.5101, L3410.9992, L500.4050, L501.4700, L3380.1000 ####[facility] [address] [place], [place], [address] CMV Quant DNA TNP Normal . [facility] Comment on above: Order Comment: Test( s) [id number]-Wqrguborbe (FK506), Bloodwas developed and its performance characteristicsdetermined by [employer]. It has not been cleared or approvedby the Food and Drug Administration. Result Comment: Resu lt Units: log10 IU/mLUnable to calculate result since non-numeric resultobtained for component test. Performed By: #### L 501.5200, L501.2300, L100.0100, L3400.8500, L501.5101, L3410.9992, L500.4050, L501.4700, L3380.1000 ####[facility] [address] [facility] [place], [place], [address] L501.5101on 09-28-2024 GGTP 38 IU/L Normal 0-65 [facility] Comment on above: Order Comment: Test( s) 892760-Ejlmltfeyp (FK506), Bloodwas developed and its performance characteristicsdetermined by [employer]. It has not been cleared or approvedby the Food and Drug Administration. Result Comment: Perf ormed at: [facility] [address] [id number] Director: Sergio Machado MD, Phone: [phone] at: [address] [id number] Director: Red Graham PhD, Phone: [phone] Performed By: #### L 501.5200, L501.2300, L100.0100, L3400.8500, L501.5101, L3410.9992, L500.4050, L501.4700, L3380.1000 ####[facility] [address] [place], [place], [id number] Tacrolimus (Prograf)on 09-28 Tacrolimus (Bld) [Mass/Vol] 6.0 ng/mL Normal 5.0-20.0 [facility] Comment on above: Order Comment: Test( s) 547500-Fkateymsgv (FK506), Bloodwas developed and its performance characteristicsdetermined by [employer]. It has not been cleared or approvedby the Food and Drug Administration. Result Comment: Targ et steady state trough concentration forTacrolimus varies based on type of organ transplantimmunosuppressive protocol and other patient specificfactors. Tacrolimus trough concentrations should beinterpreted in conjunction with clinical assessmentsof rejection and tolerability. Values obtained withdifferent assay methods cannot be used interchangeablydue to differences in assay methods and cross-reactivtywith metabolites, nor should correction factors beapplied. Therefore, consistent use of one assay forindividual patients is recommended.Detection Limit = 0.5 ng/mLPerformed by LC-MS/MS technology. Performed By: #### L 501.5200, L501.2300, L100.0100, L3400.8500, L501.5101, L3410.9992, L500.4050, L501.4700, L3380.1000 ####[facility] [address] [place], [place], [address] Absolute lymphocyte countOrd ered By: Babs Marley on 09-26-2024 Lymphocytes Auto (Unsp spec) [#/Vol] 0.84 10*3/uL 0.83-4.51 [facility] Absolute neutrophil countOrd ered By: Babs Marley on 09-26-2024 Neutrophils (Bld) [#/Vol] 2.8 10*3/uL 2.0-7.7 [facility] Anion gap in Serum or Plasma Ordered By: Babs Marley on 09-26-2024 Anion gap [Moles/Vol] 12 mmol/L 5-15 [facility] Automated lymphocyte count a s percentage of total leukocytesOrdered By: Babs Marley on 09-26-2024 Lymphocytes/100 WBC Auto (Unsp spec) 17.3 % Low 19-41 [facility] BUN/creatinine ratioOrdered By: Babs Marley on 09-26-2024 Urea nitrogen/Creatinine [Mass ratio] 17.7 mg/mg 10-20 [facility] Basophil percentageOrdered B y: Babs Marley on 09-26-2024 Basophils/100 WBC (Bld) 1.0 % 0-1 [facility] Bilirubin directOrdered By: Babs Marley on 09-26-2024 Bilirubin.direct [Mass/Vol] 0.11 mg/dL 0.00-0.30 [facility] Bilirubin, Directon 09-27-19 25 Bilirubin.direct [Mass/Vol] 0.11 mg/dL Normal 0.00-0.30 [facility] Comment on above: Performed By: #### L 501.5200, L501.2300, L100.0100, L3400.8500, L501.5101, L3410.9992, L500.4050, L501.4700, L3380.1000 ####[facility] [address] [place], [place], [phone](908) Bilirubin, totalOrdered By: Babs Marley on 09-26-2024 Bilirubin [Mass/Vol] 0.22 mg/dL 0.00-1.30 [facility] CBC W/Diff, Automatedon 08-31 Absolute Lymph 0.84 X10 3/uL Normal 0.83-4.51 [facility] Comment on above: Performed By: #### L 501.5200, L501.2300, L100.0100, L3400.8500, L501.5101, L3410.9992, L500.4050, L501.4700, L3380.1000 ####[facility] [address] [place], [address] Absolute Neut 2.8 X10 3/uL Normal 2.0-7.7 [facility] Comment on above: Performed By: #### L 501.5200, L501.2300, L100.0100, L3400.8500, L501.5101, L3410.9992, L500.4050, L501.4700, L3380.1000 ####[facility] [address] [place], [place], [phone](614) Basophils/100 WBC (Bld) 1.0 % Normal 0-1 [facility] Comment on above: Performed By: #### L 501.5200, L501.2300, L100.0100, L3400.8500, L501.5101, L3410.9992, L500.4050, L501.4700, L3380.1000 ####[facility] [address] [facility] [place], [place], [phone](690) Eosinophils/100 WBC (Bld) 9.7 % High 0-5 [facility] Comment on above: Performed By: #### L 501.5200, L501.2300, L100.0100, L3400.8500, L501.5101, L3410.9992, L500.4050, L501.4700, L3380.1000 ####[facility] [address] [facility] [place], [place], [phone](959) Erythrocyte distribution width (RBC) [Ratio] 14.8 % High 11.6-14.6 [facility] Comment on above: Performed By: #### L 501.5200, L501.2300, L100.0100, L3400.8500, L501.5101, L3410.9992, L500.4050, L501.4700, L3380.1000 ####[facility] [address] [place], [place], [phone](656) Hematocrit (Bld) [Volume fraction] 26.3 % Low 40-54 [facility] Comment on above: Performed By: #### L 501.5200, L501.2300, L100.0100, L3400.8500, L501.5101, L3410.9992, L500.4050, L501.4700, L3380.1000 ####[facility] [address] [place], [address] Hemoglobin (Bld) [Mass/Vol] 8.3 g/dL Low 13.0-16.5 [facility] Comment on above: Performed By: #### L 501.5200, L501.2300, L100.0100, L3400.8500, L501.5101, L3410.9992, L500.4050, L501.4700, L3380.1000 ####[facility] [address] [place], [address] IG% 1.200 High 0.0-0.9 [facility] Comment on above: Result Comment: IG% - Immature Granulocytes (promyelocytes, myelocytes andmetamyelocytes) > 1% indicates that a LEFT SHIFT is Present. Performed By: #### L 501.5200, L501.2300, L100.0100, L3400.8500, L501.5101, L3410.9992, L500.4050, L501.4700, L3380.1000 ####[facility] [address] [place], [address] Lymphocytes/100 WBC (Bld) 17.3 % Low 19-41 [facility] Comment on above: Performed By: #### L 501.5200, L501.2300, L100.0100, L3400.8500, L501.5101, L3410.9992, L500.4050, L501.4700, L3380.1000 ####[facility] [address] [place], [address] MCH (RBC) [Entitic mass] 31.3 pg Normal 27.0-32.0 [facility] Comment on above: Performed By: #### L 501.5200, L501.2300, L100.0100, L3400.8500, L501.5101, L3410.9992, L500.4050, L501.4700, L3380.1000 ####[facility] [address] [place], [address] MCHC (RBC) [Mass/Vol] 31.6 g/dL Low 32-36 [facility] Comment on above: Performed By: #### L 501.5200, L501.2300, L100.0100, L3400.8500, L501.5101, L3410.9992, L500.4050, L501.4700, L3380.1000 ####[facility] [address] [place], [address] MCV (RBC) [Entitic vol] 99.2 fL High 80-94 [facility] Comment on above: Performed By: #### L 501.5200, L501.2300, L100.0100, L3400.8500, L501.5101, L3410.9992, L500.4050, L501.4700, L3380.1000 ####[facility] [address] [place], [address] Monocytes/100 WBC (Bld) 12.8 % High 0-10 [facility] Comment on above: Performed By: #### L 501.5200, L501.2300, L100.0100, L3400.8500, L501.5101, L3410.9992, L500.4050, L501.4700, L3380.1000 ####[facility] [address] [place], [address] Neutrophils/100 WBC (Bld) 58.0 % Normal 47-70 [facility] Comment on above: Performed By: #### L 501.5200, L501.2300, L100.0100, L3400.8500, L501.5101, L3410.9992, L500.4050, L501.4700, L3380.1000 ####[facility] [address] [place], [address] Nucleated RBC (Bld) [#/Vol] 0 10*3/uL Normal 0-5 [facility] Comment on above: Performed By: #### L 501.5200, L501.2300, L100.0100, L3400.8500, L501.5101, L3410.9992, L500.4050, L501.4700, L3380.1000 ####[facility] [address] [place], [address] Platelet mean volume (Bld) [Entitic vol] 10.3 fL Normal 6.2-12.0 [facility] Comment on above: Performed By: #### L 501.5200, L501.2300, L100.0100, L3400.8500, L501.5101, L3410.9992, L500.4050, L501.4700, L3380.1000 ####[facility] [address] [place], [address] Platelets (Bld) [#/Vol] 362 10*3/uL Normal 150-450 [facility] Comment on above: Performed By: #### L 501.5200, L501.2300, L100.0100, L3400.8500, L501.5101, L3410.9992, L500.4050, L501.4700, L3380.1000 ####[facility] [address] [place], [address] RBC (Bld) [#/Vol] 2.65 10*6/uL Low 4.6-6.2 [facility] Comment on above: Performed By: #### L 501.5200, L501.2300, L100.0100, L3400.8500, L501.5101, L3410.9992, L500.4050, L501.4700, L3380.1000 ####[facility] [address] [place], [address] RDW SD 54.1 fl High 35.1-43.9 [facility] Comment on above: Performed By: #### L 501.5200, L501.2300, L100.0100, L3400.8500, L501.5101, L3410.9992, L500.4050, L501.4700, L3380.1000 ####[facility] [address] [place], [address](377) WBC (Bld) [#/Vol] 4.9 10*3/uL Normal 4.4-11.0 [facility] Comment on above: Performed By: #### L 501.5200, L501.2300, L100.0100, L3400.8500, L501.5101, L3410.9992, L500.4050, L501.4700, L3380.1000 ####[facility] [address] [place], [place], [phone] Carbon dioxide, total [Moles /volume] in Central venous bloodOrdered By: Babs Marley on 09-26-2024 CO2 [Moles/Vol] 23.1 mmol/L 21.0-32.0 [facility] Chloride assayOrdered By: Yissel Marley on 09-26-2024 Chloride [Moles/Vol] 102 mmol/L 98-108 [facility] Comprehensive Metabolic Prof ilon 09-26-2024 Albumin [Mass/Vol] 3.7 g/dL Normal 3.4-4.8 [facility] Comment on above: Performed By: #### L 501.5200, L501.2300, L100.0100, L3400.8500, L501.5101, L3410.9992, L500.4050, L501.4700, L3380.1000 ####[facility] [address] [place], [address](161) Albumin/Globulin [Mass ratio] 1.4 {ratio} Normal 0.9-2.4 [facility] Comment on above: Performed By: #### L 501.5200, L501.2300, L100.0100, L3400.8500, L501.5101, L3410.9992, L500.4050, L501.4700, L3380.1000 ####[facility] [address] [place], [address] ALK PHOS 124 U/L Normal 40-129 [facility] Comment on above: Performed By: #### L 501.5200, L501.2300, L100.0100, L3400.8500, L501.5101, L3410.9992, L500.4050, L501.4700, L3380.1000 ####[facility] [address] [place], [address] ALT [Catalytic activity/Vol] 16 U/L Normal <=46 [facility] Comment on above: Performed By: #### L 501.5200, L501.2300, L100.0100, L3400.8500, L501.5101, L3410.9992, L500.4050, L501.4700, L3380.1000 ####[facility] [address] [place], [address] AST [Catalytic activity/Vol] 28 U/L Normal <=37 [facility] Comment on above: Performed By: #### L 501.5200, L501.2300, L100.0100, L3400.8500, L501.5101, L3410.9992, L500.4050, L501.4700, L3380.1000 ####[facility] [address] [place], [address] Bilirubin [Mass/Vol] 0.22 mg/dL Normal 0.00-1.30 [facility] Comment on above: Performed By: #### L 501.5200, L501.2300, L100.0100, L3400.8500, L501.5101, L3410.9992, L500.4050, L501.4700, L3380.1000 ####[facility] [address] [place], [address] BUN/CRE 17.7 RATIO Normal 10-20 [facility] Comment on above: Performed By: #### L 501.5200, L501.2300, L100.0100, L3400.8500, L501.5101, L3410.9992, L500.4050, L501.4700, L3380.1000 ####[facility] [address] [place], [address] Calcium [Mass/Vol] 9.3 mg/dL Normal 7.6-11.0 [facility] Comment on above: Performed By: #### L 501.5200, L501.2300, L100.0100, L3400.8500, L501.5101, L3410.9992, L500.4050, L501.4700, L3380.1000 ####[facility] [address] [place], [address] Chloride [Moles/Vol] 102 mmol/L Normal 98-108 [facility] Comment on above: Performed By: #### L 501.5200, L501.2300, L100.0100, L3400.8500, L501.5101, L3410.9992, L500.4050, L501.4700, L3380.1000 ####[facility] [address] [place], [address] CO2 [Moles/Vol] 23.1 mmol/L Normal 21.0-32.0 [facility] Comment on above: Performed By: #### L 501.5200, L501.2300, L100.0100, L3400.8500, L501.5101, L3410.9992, L500.4050, L501.4700, L3380.1000 ####[facility] [address] [place], [place], [phone] Creatinine [Mass/Vol] 1.24 mg/dL High 0.70-1.20 [facility] Comment on above: Performed By: #### L 501.5200, L501.2300, L100.0100, L3400.8500, L501.5101, L3410.9992, L500.4050, L501.4700, L3380.1000 ####[facility] [address] [place], [place], [phone] GAP 12 Normal 5-15 [facility] Comment on above: Performed By: #### L 501.5200, L501.2300, L100.0100, L3400.8500, L501.5101, L3410.9992, L500.4050, L501.4700, L3380.1000 ####[facility] [address] [place], [place], [phone] GFR/1.73 sq M.predicted among non-blacks MDRD (S/P/Bld) [Vol rate/Area] 67 mL/min/{1.73_m2} Normal >60 [facility] Comment on above: Result Comment: mL/m in/1.73m2 CKD-EPI Creatinine Equation (2020) Performed By: #### L 501.5200, L501.2300, L100.0100, L3400.8500, L501.5101, L3410.9992, L500.4050, L501.4700, L3380.1000 ####[facility] [address] [place], [place], [phone] Globulin (S) [Mass/Vol] 2.6 g/dL Normal 2.2-4.2 [facility] Comment on above: Performed By: #### L 501.5200, L501.2300, L100.0100, L3400.8500, L501.5101, L3410.9992, L500.4050, L501.4700, L3380.1000 ####[facility] [address] [place], [address] Glucose [Mass/Vol] 91 mg/dL Normal 70-99 [facility] Comment on above: Performed By: #### L 501.5200, L501.2300, L100.0100, L3400.8500, L501.5101, L3410.9992, L500.4050, L501.4700, L3380.1000 ####[facility] [address] [place], [address] Potassium [Moles/Vol] 4.3 mmol/L Normal 3.3-5.1 [facility] Comment on above: Performed By: #### L 501.5200, L501.2300, L100.0100, L3400.8500, L501.5101, L3410.9992, L500.4050, L501.4700, L3380.1000 ####[facility] [address] [place], [address] Sodium [Moles/Vol] 137 mmol/L Normal 133-145 [facility] Comment on above: Performed By: #### L 501.5200, L501.2300, L100.0100, L3400.8500, L501.5101, L3410.9992, L500.4050, L501.4700, L3380.1000 ####[facility] [address] [place], [address] T PROT 6.3 g/dL Normal 5.9-8.4 [facility] Comment on above: Performed By: #### L 501.5200, L501.2300, L100.0100, L3400.8500, L501.5101, L3410.9992, L500.4050, L501.4700, L3380.1000 ####[facility] [address] [place], [place], [phone] Urea nitrogen [Mass/Vol] 22 mg/dL High 4-19 [facility] Comment on above: Performed By: #### L 501.5200, L501.2300, L100.0100, L3400.8500, L501.5101, L3410.9992, L500.4050, L501.4700, L3380.1000 ####[facility] [address] [place], [place], [phone] Cytomegalovirus (CMV) DNA me asurement by PCR (log units/volume)Ordered By: Babs Marley on 09-26-2024 CMV DNA JACKY+probe (P) [Log units/Vol] TNP [facility] Comment on above: Test not performedRe sult Units: log10 IU/mLUnable to calculate result since non-numeric resultobtained for component test. Eosinophil percentageOrdered By: Babs Marley on 09-26-2024 Eosinophils/100 WBC (Bld) 9.7 % High 0-5 [facility] Erythrocyte distribution wid th ratioOrdered By: Gregorylindsey Marley on 09-26-2024 Erythrocyte distribution width (RBC) [Ratio] 14.8 % High 11.6-14.6 [facility] Erythrocyte distribution wid th standard deviationOrdered By: Babs Marley on 09-26-2024 Erythrocyte distribution width (RBC) [Ratio] 54.1 fl High 35.1-43.9 [facility] Gamma glutamyl transferase ( GGT) measurementOrdered By: Babs Marley on 09-26-2024 Amylase [Catalytic activity/Vol] 38 U/L 0-65 [facility] Comment on above: Performed at: BN - L [address] [id number] Director: Sergio Machado MD, Phone: [phone] at: - [facility] [address] [id number] Director: Red Graham PhD, Phone: [phone] Glomerular filtration rate ( GFR) estimation/1.73 sq m using serum, plasma, or whole bOrdered By: Babs Marley on 09-26-2024 GFR/1.73 sq M.predicted among non-blacks MDRD (S/P/Bld) [Vol rate/Area] 67 mL/min/{1.73_m2} >60 [facility] Comment on above: mL/min/1.73m2 CKD-EP I Creatinine Equation (2020) Hematocrit Auto (Bld) [Volum e fraction]Ordered By: Babs Marley on 09-26-2024 Hematocrit (Bld) [Volume fraction] 26.3 % Low 40-54 [facility] Hemoglobin measurementOrdere d By: Babs Marley on 09-26-2024 Hemoglobin (Bld) [Mass/Vol] 8.3 g/dL Low 13.0-16.5 [facility] Immature granulocytes/100 WB C Auto (Bld)Ordered By: Babs Marley on 09-26-2024 Immature granulocytes/100 WBC (Bld) 1.200 % High 0.0-0.9 [facility] Comment on above: IG% - Immature Granu locytes (promyelocytes, myelocytes and metamyelocytes) > 1% indicates that a LEFT SHIFT is Present. Laboratory - Chemistry and C hemistry - challengeOrdered By: Babs Marley on 09-26-2024 AST [Catalytic activity/Vol] 28 U/L <38 [facility] MCV (mean corpuscular volume ) determinationOrdered By: Babs Marley on 09-26-2024 MCV (RBC) [Entitic vol] 99.2 fL High 80-94 [facility] Magnesiumon 09-26-2024 Magnesium [Mass/Vol] 1.9 mg/dL Normal 1.5-2.2 [facility] Comment on above: Performed By: #### L 501.5200, L501.2300, L100.0100, L3400.8500, L501.5101, L3410.9992, L500.4050, L501.4700, L3380.1000 ####[facility] [address] [place], [place], [phone] Magnesium measurement (mass/ volume)Ordered By: Babs Marley on 09-26-2024 Magnesium (Unsp spec) [Mass/Vol] 1.9 mg/dL 1.5-2.2 [facility] Mean corpuscular hemoglobin (MCH) determinationOrdered By: Babs Marley on 09-26-2024 MCH (RBC) [Entitic mass] 31.3 pg 27.0-32.0 [facility] Mean corpuscular hemoglobin concentration (MCHC) determinationOrdered By: Babs Marley on 09-26-2024 MCHC (RBC) [Mass/Vol] 31.6 g/dL Low 32-36 [facility] Mean platelet volume determi nationOrdered By: Babs Marley on 09-26-2024 Platelet mean volume (Bld) [Entitic vol] 10.3 fL 6.2-12.0 [facility] Monocyte percentageOrdered B y: Babs Marley on 09-26-2024 Monocytes/100 WBC (Bld) 12.8 % High 0-10 [facility] Neutrophil percentageOrdered By: Babs Marley on 09-26-2024 Neutrophils/100 WBC (Bld) 58.0 % 47-70 [facility] No Panel InformationOrdered By: Babs Marley on 09-26-2024 28 U/L <38 [facility] Nucleated red blood cell per centageOrdered By: Babs Marley on 09-26-2024 Nucleated RBC/100 WBC (Bld) [Ratio] 0 % 0-5 [facility] Phosphoruson 09-26-2024 Phosphate [Mass/Vol] 3.5 mg/dL Normal 2.7-4.5 [facility] Comment on above: Performed By: #### L 501.5200, L501.2300, L100.0100, L3400.8500, L501.5101, L3410.9992, L500.4050, L501.4700, L3380.1000 ####[facility] [address] [place], [address] Platelet countOrdered By: Yissel Marley on 09-26-2024 Platelets (Bld) [#/Vol] 362 10*3/uL 150-450 [facility] Potassium measurement (mass/ volume)Ordered By: Babs Marley on 09-26-2024 Potassium (Unsp spec) [Mass/Vol] 4.3 mmol/L 3.3-5.1 [facility] RBC Auto (Bld) [#/Vol]Ordere d By: Babs Marley on 09-26-2024 RBC (Bld) [#/Vol] 2.65 10*6/uL Low 4.6-6.2 [facility] Serum creatinine measurement (mass/volume)Ordered By: Babs Marley on 09-26-2024 Creatinine [Mass/Vol] 1.24 mg/dL High 0.70-1.20 [facility] Serum globulin measurementOr dered By: Babs Marley on 09-26-2024 Globulin (S) [Mass/Vol] 2.6 g/dL 2.2-4.2 [facility] Serum glucose measurement (m ass/volume)Ordered By: Babs Marley on 09-26-2024 Glucose [Mass/Vol] 91 mg/dL 70-99 [facility] Serum or plasma alanine craig otransferase (ALT) measurementOrdered By: Babs Marley on 09-26-2024 ALT [Catalytic activity/Vol] 16 U/L <47 [facility] Serum or plasma albumin megha urement (mass/volume)Ordered By: Babs Marley on 09-26-2024 Albumin [Mass/Vol] 3.7 g/dL 3.4-4.8 [facility] Serum or plasma albumin/glob ulin mass ratioOrdered By: Babs Marley on 09-26-2024 Albumin/Globulin [Mass ratio] 1.4 {ratio} 0.9-2.4 [facility] Serum or plasma alkaline sal sphatase measurementOrdered By: Babs Marley on 09-26-2024 ALP [Catalytic activity/Vol] 124 U/L 40-129 [facility] Serum or plasma calcium megha urement (mass/volume)Ordered By: Babs Marley on 09-26-2024 Calcium [Mass/Vol] 9.3 mg/dL 7.6-11.0 [facility] Serum or plasma urea nitroge n measurement (mass/volume)Ordered By: Gregorykiranlindsey Marley on 09-26-2024 Urea nitrogen [Mass/Vol] 22 mg/dL High 4-19 [facility] Sodium levelOrdered By: Gregory Bosearya on 09-26-2024 Sodium [Moles/Vol] 137 mmol/L 133-145 [facility] Total proteinOrdered By: Lorena celina Donell on 09-26-2024 Protein [Mass/Vol] 6.3 g/dL 5.9-8.4 [facility] White blood cell (WBC) count Ordered By: Gregorykiranlindsey Marley on 09-26-2024 WBC (Bld) [#/Vol] 4.9 10*3/uL 4.4-11.0 [facility] L3400.8500on 09-21-2024 CMV Quant DNA Negative Normal Negative [facility] Comment on above: Order Comment: Test( s) 093671-Iqimedtyct (FK506), Bloodwas developed and its performance characteristicsdetermined by [facility]. It has not been cleared or approvedby the Food and Drug Administration. Result Comment: No C MV DNA detected.The quantitative range of this assay is 200 to 1 millionIU/mL. Performed By: #### L 3380.1000, L501.2300, L501.5200, L100.0100, L500.4050, L501.5101, L3400.8500, L501.4700 ####[facility] [address] [place], [place], [id number] CMV Quant DNA TNP Normal . [facility] Comment on above: Order Comment: Test( s) [id number]-Xbctkobgzd (FK506), Bloodwas developed and its performance characteristicsdetermined by [facility]. It has not been cleared or approvedby the Food and Drug Administration. Result Comment: Resu lt Units: log10 IU/mLUnable to calculate result since non-numeric resultobtained for component test. Performed By: #### L 3380.1000, L501.2300, L501.5200, L100.0100, L500.4050, L501.5101, L3400.8500, L501.4700 ####[facility] [address] [place], [place], [id number] L501.5101on 09-21-2024 GGTP 41 IU/L Normal 0-65 [facility] Comment on above: Order Comment: Test( s) [id number]-Hvftaljaap (FK506), Bloodwas developed and its performance characteristicsdetermined by [facility]. It has not been cleared or approvedby the Food and Drug Administration. Result Comment: Perf ormed at: [facility] [address] [id number] Director: Sergio Machado MD, Phone: [phone] at: [facility] [address] [id number] Director: Red Graham PhD, Phone: [phone] Performed By: #### L 3380.1000, L501.2300, L501.5200, L100.0100, L500.4050, L501.5101, L3400.8500, L501.4700 ####[facility] [address] [place], [place], [id number] Tacrolimus (Prograf)on 09-21 Tacrolimus (Bld) [Mass/Vol] 6.9 ng/mL Normal 5.0-20.0 [facility] Comment on above: Order Comment: Test( s) [id number] (FK506), Bloodwas developed and its performance characteristicsdetermined by [facility]. It has not been cleared or approvedby the Food and Drug Administration. Result Comment: Targ et steady state trough concentration forTacrolimus varies based on type of organ transplantimmunosuppressive protocol and other patient specificfactors. Tacrolimus trough concentrations should beinterpreted in conjunction with clinical assessmentsof rejection and tolerability. Values obtained withdifferent assay methods cannot be used interchangeablydue to differences in assay methods and cross-reactivtywith metabolites, nor should correction factors beapplied. Therefore, consistent use of one assay forindividual patients is recommended.Detection Limit = 0.5 ng/mLPerformed by LC-MS/MS technology. Performed By: #### L 3380.1000, L501.2300, L501.5200, L100.0100, L500.4050, L501.5101, L3400.8500, L501.4700 ####[facility] [address] [place], [place], [phone] Bilirubin, Directon 09-20-19 25 Bilirubin.direct [Mass/Vol] 0.11 mg/dL Normal 0.00-0.30 [facility] Comment on above: Performed By: #### L 3380.1000, L501.2300, L501.5200, L100.0100, L500.4050, L501.5101, L3400.8500, L501.4700 ####[facility] [address] [place], [place], [phone] CBC W/Diff, Automatedon 07-04 02-2024 Absolute Lymph 0.83 X10 3/uL Normal 0.83-4.51 [facility] Comment on above: Performed By: #### L 3380.1000, L501.2300, L501.5200, L100.0100, L500.4050, L501.5101, L3400.8500, L501.4700 ####[facility] [address] [place], [address] Absolute Neut 4.3 X10 3/uL Normal 2.0-7.7 [facility] Comment on above: Performed By: #### L 3380.1000, L501.2300, L501.5200, L100.0100, L500.4050, L501.5101, L3400.8500, L501.4700 ####[facility] [address] [place], [place], [phone](589) Basophils/100 WBC (Bld) 1.0 % Normal 0-1 [facility] Comment on above: Performed By: #### L 3380.1000, L501.2300, L501.5200, L100.0100, L500.4050, L501.5101, L3400.8500, L501.4700 ####[facility] [address] [place], [address] Eosinophils/100 WBC (Bld) 5.5 % High 0-5 [facility] Comment on above: Performed By: #### L 3380.1000, L501.2300, L501.5200, L100.0100, L500.4050, L501.5101, L3400.8500, L501.4700 ####[facility] [address] [place], [address] Erythrocyte distribution width (RBC) [Ratio] 14.6 % Normal 11.6-14.6 [facility] Comment on above: Performed By: #### L 3380.1000, L501.2300, L501.5200, L100.0100, L500.4050, L501.5101, L3400.8500, L501.4700 ####[facility] [address] [place], [address] Hematocrit (Bld) [Volume fraction] 29.7 % Low 40-54 [facility] Comment on above: Performed By: #### L 3380.1000, L501.2300, L501.5200, L100.0100, L500.4050, L501.5101, L3400.8500, L501.4700 ####[facility] [address] [place], [address] Hemoglobin (Bld) [Mass/Vol] 9.4 g/dL Low 13.0-16.5 [facility] Comment on above: Performed By: #### L 3380.1000, L501.2300, L501.5200, L100.0100, L500.4050, L501.5101, L3400.8500, L501.4700 ####[facility] [address] [place], [address] IG% 1.100 High 0.0-0.9 [facility] Comment on above: Result Comment: IG% - Immature Granulocytes (promyelocytes, myelocytes andmetamyelocytes) > 1% indicates that a LEFT SHIFT is Present. Performed By: #### L 3380.1000, L501.2300, L501.5200, L100.0100, L500.4050, L501.5101, L3400.8500, L501.4700 ####[facility] [address] [place], [address] Lymphocytes/100 WBC (Bld) 13.5 % Low 19-41 [facility] Comment on above: Performed By: #### L 3380.1000, L501.2300, L501.5200, L100.0100, L500.4050, L501.5101, L3400.8500, L501.4700 ####[facility] [address] [place], [address] MCH (RBC) [Entitic mass] 31.1 pg Normal 27.0-32.0 [facility] Comment on above: Performed By: #### L 3380.1000, L501.2300, L501.5200, L100.0100, L500.4050, L501.5101, L3400.8500, L501.4700 ####[facility] [address] [place], [address] MCHC (RBC) [Mass/Vol] 31.6 g/dL Low 32-36 [facility] Comment on above: Performed By: #### L 3380.1000, L501.2300, L501.5200, L100.0100, L500.4050, L501.5101, L3400.8500, L501.4700 ####[facility] [address] [place], [address] MCV (RBC) [Entitic vol] 98.3 fL High 80-94 [facility] Comment on above: Performed By: #### L 3380.1000, L501.2300, L501.5200, L100.0100, L500.4050, L501.5101, L3400.8500, L501.4700 ####[facility] [address] [place], [address] Monocytes/100 WBC (Bld) 9.4 % Normal 0-10 [facility] Comment on above: Performed By: #### L 3380.1000, L501.2300, L501.5200, L100.0100, L500.4050, L501.5101, L3400.8500, L501.4700 ####[facility] [address] [place], [address] Neutrophils/100 WBC (Bld) 69.5 % Normal 47-70 [facility] Comment on above: Performed By: #### L 3380.1000, L501.2300, L501.5200, L100.0100, L500.4050, L501.5101, L3400.8500, L501.4700 ####[facility] [address] [place], [address] Nucleated RBC (Bld) [#/Vol] 0 10*3/uL Normal 0-5 [facility] Comment on above: Performed By: #### L 3380.1000, L501.2300, L501.5200, L100.0100, L500.4050, L501.5101, L3400.8500, L501.4700 ####[facility] [address] [place], [address] Platelet mean volume (Bld) [Entitic vol] 9.9 fL Normal 6.2-12.0 [facility] Comment on above: Performed By: #### L 3380.1000, L501.2300, L501.5200, L100.0100, L500.4050, L501.5101, L3400.8500, L501.4700 ####[facility] [address] [place], [address] Platelets (Bld) [#/Vol] 491 10*3/uL High 150-450 [facility] Comment on above: Performed By: #### L 3380.1000, L501.2300, L501.5200, L100.0100, L500.4050, L501.5101, L3400.8500, L501.4700 ####[facility] [address] [place], [address] RBC (Bld) [#/Vol] 3.02 10*6/uL Low 4.6-6.2 [facility] Comment on above: Performed By: #### L 3380.1000, L501.2300, L501.5200, L100.0100, L500.4050, L501.5101, L3400.8500, L501.4700 ####[facility] [address] [place], [address] RDW SD 52.7 fl High 35.1-43.9 [facility] Comment on above: Performed By: #### L 3380.1000, L501.2300, L501.5200, L100.0100, L500.4050, L501.5101, L3400.8500, L501.4700 ####[facility] [address] [place], [address] WBC (Bld) [#/Vol] 6.2 10*3/uL Normal 4.4-11.0 [facility] Comment on above: Performed By: #### L 3380.1000, L501.2300, L501.5200, L100.0100, L500.4050, L501.5101, L3400.8500, L501.4700 ####[facility] [address] [place], [address] Comprehensive Metabolic Prof ilon 07-21-2025 Albumin [Mass/Vol] 3.8 g/dL Normal 3.4-4.8 [facility] Comment on above: Performed By: #### L 3380.1000, L501.2300, L501.5200, L100.0100, L500.4050, L501.5101, L3400.8500, L501.4700 ####[facility] [address] [place], [place], [phone] Albumin/Globulin [Mass ratio] 1.4 {ratio} Normal 0.9-2.4 [facility] Comment on above: Performed By: #### L 3380.1000, L501.2300, L501.5200, L100.0100, L500.4050, L501.5101, L3400.8500, L501.4700 ####[facility] [address] [place], [place], [phone] ALK PHOS 151 U/L High 40-129 [facility] Comment on above: Performed By: #### L 3380.1000, L501.2300, L501.5200, L100.0100, L500.4050, L501.5101, L3400.8500, L501.4700 ####[facility] [address] [place], [place], [phone] ALT [Catalytic activity/Vol] 9 U/L Normal <=46 [facility] Comment on above: Performed By: #### L 3380.1000, L501.2300, L501.5200, L100.0100, L500.4050, L501.5101, L3400.8500, L501.4700 ####[facility] [address] [place], [place], [phone] AST [Catalytic activity/Vol] 19 U/L Normal <=37 [facility] Comment on above: Performed By: #### L 3380.1000, L501.2300, L501.5200, L100.0100, L500.4050, L501.5101, L3400.8500, L501.4700 ####[facility] [address] [place], [address] Bilirubin [Mass/Vol] 0.23 mg/dL Normal 0.00-1.30 [facility] Comment on above: Performed By: #### L 3380.1000, L501.2300, L501.5200, L100.0100, L500.4050, L501.5101, L3400.8500, L501.4700 ####[facility] [address] [place], [address] BUN/CRE 15.9 RATIO Normal 10-20 [facility] Comment on above: Performed By: #### L 3380.1000, L501.2300, L501.5200, L100.0100, L500.4050, L501.5101, L3400.8500, L501.4700 ####[facility] [address] [place], [address] Calcium [Mass/Vol] 9.5 mg/dL Normal 7.6-11.0 [facility] Comment on above: Performed By: #### L 3380.1000, L501.2300, L501.5200, L100.0100, L500.4050, L501.5101, L3400.8500, L501.4700 ####[facility] [address] [place], [address] Chloride [Moles/Vol] 105 mmol/L Normal 98-108 [facility] Comment on above: Performed By: #### L 3380.1000, L501.2300, L501.5200, L100.0100, L500.4050, L501.5101, L3400.8500, L501.4700 ####[facility] [address] [place], [address] CO2 [Moles/Vol] 21.9 mmol/L Normal 21.0-32.0 [facility] Comment on above: Performed By: #### L 3380.1000, L501.2300, L501.5200, L100.0100, L500.4050, L501.5101, L3400.8500, L501.4700 ####[facility] [address] [place], [place], [phone](239) Creatinine [Mass/Vol] 1.23 mg/dL High 0.70-1.20 [facility] Comment on above: Performed By: #### L 3380.1000, L501.2300, L501.5200, L100.0100, L500.4050, L501.5101, L3400.8500, L501.4700 ####[facility] [address] [place], [address] GAP 11 Normal 5-15 [facility] Comment on above: Performed By: #### L 3380.1000, L501.2300, L501.5200, L100.0100, L500.4050, L501.5101, L3400.8500, L501.4700 ####[facility] [address] [place], [place], [phone](609) GFR/1.73 sq M.predicted among non-blacks MDRD (S/P/Bld) [Vol rate/Area] 67 mL/min/{1.73_m2} Normal >60 [facility] Comment on above: Result Comment: mL/m in/1.73m2 CKD-EPI Creatinine Equation (2020) Performed By: #### L 3380.1000, L501.2300, L501.5200, L100.0100, L500.4050, L501.5101, L3400.8500, L501.4700 ####[facility] [address] [place], [address](075) Globulin (S) [Mass/Vol] 2.8 g/dL Normal 2.2-4.2 [facility] Comment on above: Performed By: #### L 3380.1000, L501.2300, L501.5200, L100.0100, L500.4050, L501.5101, L3400.8500, L501.4700 ####[facility] [address] [place], [address] Glucose [Mass/Vol] 111 mg/dL High 70-99 [facility] Comment on above: Performed By: #### L 3380.1000, L501.2300, L501.5200, L100.0100, L500.4050, L501.5101, L3400.8500, L501.4700 ####[facility] [address] [place], [address] Potassium [Moles/Vol] 4.5 mmol/L Normal 3.3-5.1 [facility] Comment on above: Performed By: #### L 3380.1000, L501.2300, L501.5200, L100.0100, L500.4050, L501.5101, L3400.8500, L501.4700 ####[facility] [address] [place], [address] Sodium [Moles/Vol] 138 mmol/L Normal 133-145 [facility] Comment on above: Performed By: #### L 3380.1000, L501.2300, L501.5200, L100.0100, L500.4050, L501.5101, L3400.8500, L501.4700 ####[facility] [address] [place], [address] T PROT 6.6 g/dL Normal 5.9-8.4 [facility] Comment on above: Performed By: #### L 3380.1000, L501.2300, L501.5200, L100.0100, L500.4050, L501.5101, L3400.8500, L501.4700 ####[facility] [address] [place], [address] Urea nitrogen [Mass/Vol] 20 mg/dL High 4-19 [facility] Comment on above: Performed By: #### L 3380.1000, L501.2300, L501.5200, L100.0100, L500.4050, L501.5101, L3400.8500, L501.4700 ####[facility] [address] [place], [address] Magnesiumon 09-19-2024 Magnesium [Mass/Vol] 1.8 mg/dL Normal 1.5-2.2 [facility] Comment on above: Performed By: #### L 3380.1000, L501.2300, L501.5200, L100.0100, L500.4050, L501.5101, L3400.8500, L501.4700 ####[facility] [address] [place], [address] Phosphoruson 09-19-2024 Phosphate [Mass/Vol] 3.4 mg/dL Normal 2.7-4.5 [facility] Comment on above: Performed By: #### L 3380.1000, L501.2300, L501.5200, L100.0100, L500.4050, L501.5101, L3400.8500, L501.4700 ####[facility] [address] [place], [address] L3400.8500on 09-16-2024 CMV Quant DNA Negative Normal Negative [facility] Comment on above: Order Comment: Test( s) [id number]-Rnloohayqy (FK506), Bloodwas developed and its performance characteristicsdetermined by [facility]. It has not been cleared or approvedby the Food and Drug Administration. Result Comment: No C MV DNA detected.The quantitative range of this assay is 200 to 1 millionIU/mL. Performed By: #### L 501.2300, L501.5101, L501.4700, L100.0100, L3380.1000, L500.4050, L501.5200, L3400.8500 ####[facility] [address] [place], [place], [phone] CMV Quant DNA TNP Normal . [facility] Comment on above: Order Comment: Test( s) [id number]-Zethsjdhxg (FK506), Bloodwas developed and its performance characteristicsdetermined by [facility]. It has not been cleared or approvedby the Food and Drug Administration. Result Comment: Resu lt Units: log10 IU/mLUnable to calculate result since non-numeric resultobtained for component test. Performed By: #### L 501.2300, L501.5101, L501.4700, L100.0100, L3380.1000, L500.4050, L501.5200, L3400.8500 ####[facility] [address] [place], [address] L501.5101on 09-16-2024 GGTP 51 IU/L Normal 0-65 [facility] Comment on above: Order Comment: Test( s) [id number]-Qugbhyakoq (FK506), Bloodwas developed and its performance characteristicsdetermined by [facility]. It has not been cleared or approvedby the Food and Drug Administration. Result Comment: Perf ormed at: [address] [id number] Director: Sergio Machado MD, Phone: [phone] at: [address] [id number] Director: Red Graham PhD, Phone: [phone] Performed By: #### L 501.2300, L501.5101, L501.4700, L100.0100, L3380.1000, L500.4050, L501.5200, L3400.8500 ####[facility] [address] [place], [address] Tacrolimus (Prograf)on 09-16 Tacrolimus (Bld) [Mass/Vol] 5.7 ng/mL Normal 5.0-20.0 [facility] Comment on above: Order Comment: Test( s) [id number]-Jdyulxjimh (FK506), Bloodwas developed and its performance characteristicsdetermined by [facility]. It has not been cleared or approvedby the Food and Drug Administration. Result Comment: Targ et steady state trough concentration forTacrolimus varies based on type of organ transplantimmunosuppressive protocol and other patient specificfactors. Tacrolimus trough concentrations should beinterpreted in conjunction with clinical assessmentsof rejection and tolerability. Values obtained withdifferent assay methods cannot be used interchangeablydue to differences in assay methods and cross-reactivtywith metabolites, nor should correction factors beapplied. Therefore, consistent use of one assay forindividual patients is recommended.Detection Limit = 0.5 ng/mLPerformed by LC-MS/MS technology. Performed By: #### L 501.2300, L501.5101, L501.4700, L100.0100, L3380.1000, L500.4050, L501.5200, L3400.8500 ####[facility] [address] [place], [place], [address] L3410.9992on 09-15-2024 [facility]. COMMENT Normal . [facility] Comment on above: Order Comment: 49694 4Q FEVER ANITBODY - SERUM - RMT Result Comment: Test Ordered: [id number] Q Fever Antibodies, IgGQ Fever Phase I 1:128 [H ] BN Reference Range: Neg:<1:16Q Fever Phase II Negative BN Reference Range: Neg:<1:16Note: Four-fold increases between paired sera arerecommended to demonstrate recent infection.Performed at: [address] [id number] Director: Sergio Machado MD, Phone: [phone] at: [address] [id number] Director: Red Graham PhD, Phone: [phone] Performed By: #### L 3410.9992 ####[facility] [address] [place], [address] Bilirubin, Directon 09-13-19 Bilirubin.direct [Mass/Vol] 0.14 mg/dL Normal 0.00-0.30 [facility] Comment on above: Performed By: #### L 501.2300, L501.5101, L501.4700, L100.0100, L3380.1000, L500.4050, L501.5200, L3400.8500 ####[facility] [address] [place], [address] CBC W/Diff, Automatedon 08-30 Anisocytosis Ql (Bld) A Normal [facility] Comment on above: Performed By: #### L 501.2300, L501.5101, L501.4700, L100.0100, L3380.1000, L500.4050, L501.5200, L3400.8500 ####[facility] [address] [place], [address] OVALOCYTE 1+ Normal [facility] Comment on above: Performed By: #### L 501.2300, L501.5101, L501.4700, L100.0100, L3380.1000, L500.4050, L501.5200, L3400.8500 ####[facility] [address] [place], [address] Comprehensive Metabolic Prof ilon 09-12-2024 Albumin [Mass/Vol] 4.0 g/dL Normal 3.4-4.8 [facility] Comment on above: Performed By: #### L 501.2300, L501.5101, L501.4700, L100.0100, L3380.1000, L500.4050, L501.5200, L3400.8500 ####[facility] [address] [place], [address] Albumin/Globulin [Mass ratio] 1.4 {ratio} Normal 0.9-2.4 [facility] Comment on above: Performed By: #### L 501.2300, L501.5101, L501.4700, L100.0100, L3380.1000, L500.4050, L501.5200, L3400.8500 ####[facility] [address] [place], [place], [phone](550) ALK PHOS 148 U/L High 40-129 [facility] Comment on above: Performed By: #### L 501.2300, L501.5101, L501.4700, L100.0100, L3380.1000, L500.4050, L501.5200, L3400.8500 ####[facility] [address] [place], [place], [phone](905) ALT [Catalytic activity/Vol] 7 U/L Normal <=46 [facility] Comment on above: Performed By: #### L 501.2300, L501.5101, L501.4700, L100.0100, L3380.1000, L500.4050, L501.5200, L3400.8500 ####[facility] [address] [place], [place], [phone](516) AST [Catalytic activity/Vol] 27 U/L Normal <=37 [facility] Comment on above: Performed By: #### L 501.2300, L501.5101, L501.4700, L100.0100, L3380.1000, L500.4050, L501.5200, L3400.8500 ####[facility] [address] [place], [place], [phone](167) Bilirubin [Mass/Vol] 0.26 mg/dL Normal 0.00-1.30 [facility] Comment on above: Performed By: #### L 501.2300, L501.5101, L501.4700, L100.0100, L3380.1000, L500.4050, L501.5200, L3400.8500 ####[facility] [address] [place], [address] BUN/CRE 20.0 RATIO Normal 10-20 [facility] Comment on above: Performed By: #### L 501.2300, L501.5101, L501.4700, L100.0100, L3380.1000, L500.4050, L501.5200, L3400.8500 ####[facility] [address] [place], [address] Calcium [Mass/Vol] 9.4 mg/dL Normal 7.6-11.0 [facility] Comment on above: Performed By: #### L 501.2300, L501.5101, L501.4700, L100.0100, L3380.1000, L500.4050, L501.5200, L3400.8500 ####[facility] [address] [place], [address] Chloride [Moles/Vol] 102 mmol/L Normal 98-108 [facility] Comment on above: Performed By: #### L 501.2300, L501.5101, L501.4700, L100.0100, L3380.1000, L500.4050, L501.5200, L3400.8500 ####[facility] [address] [place], [address] CO2 [Moles/Vol] 24.8 mmol/L Normal 21.0-32.0 [facility] Comment on above: Performed By: #### L 501.2300, L501.5101, L501.4700, L100.0100, L3380.1000, L500.4050, L501.5200, L3400.8500 ####[facility] [address] [place], [address] Creatinine [Mass/Vol] 1.12 mg/dL Normal 0.70-1.20 [facility] Comment on above: Performed By: #### L 501.2300, L501.5101, L501.4700, L100.0100, L3380.1000, L500.4050, L501.5200, L3400.8500 ####[facility] [address] [place], [address] GAP 11 Normal 5-15 [facility] Comment on above: Performed By: #### L 501.2300, L501.5101, L501.4700, L100.0100, L3380.1000, L500.4050, L501.5200, L3400.8500 ####[facility] [address] [place], [address] GFR/1.73 sq M.predicted among non-blacks MDRD (S/P/Bld) [Vol rate/Area] 75 mL/min/{1.73_m2} Normal >60 [facility] Comment on above: Result Comment: mL/m in/1.73m2 CKD-EPI Creatinine Equation (2020) Performed By: #### L 501.2300, L501.5101, L501.4700, L100.0100, L3380.1000, L500.4050, L501.5200, L3400.8500 ####[facility] [address] [place], [address] Globulin (S) [Mass/Vol] 2.8 g/dL Normal 2.2-4.2 [facility] Comment on above: Performed By: #### L 501.2300, L501.5101, L501.4700, L100.0100, L3380.1000, L500.4050, L501.5200, L3400.8500 ####[facility] [address] [place], [address] Glucose [Mass/Vol] 98 mg/dL Normal 70-99 [facility] Comment on above: Performed By: #### L 501.2300, L501.5101, L501.4700, L100.0100, L3380.1000, L500.4050, L501.5200, L3400.8500 ####[facility] [address] [place], [address] Potassium [Moles/Vol] 4.5 mmol/L Normal 3.3-5.1 [facility] Comment on above: Performed By: #### L 501.2300, L501.5101, L501.4700, L100.0100, L3380.1000, L500.4050, L501.5200, L3400.8500 ####[facility] [address] [place], [address] Sodium [Moles/Vol] 138 mmol/L Normal 133-145 [facility] Comment on above: Performed By: #### L 501.2300, L501.5101, L501.4700, L100.0100, L3380.1000, L500.4050, L501.5200, L3400.8500 ####[facility] [address] [place], [address] T PROT 6.8 g/dL Normal 5.9-8.4 [facility] Comment on above: Performed By: #### L 501.2300, L501.5101, L501.4700, L100.0100, L3380.1000, L500.4050, L501.5200, L3400.8500 ####[facility] [address] [place], [address] Urea nitrogen [Mass/Vol] 22 mg/dL High 4-19 [facility] Comment on above: Performed By: #### L 501.2300, L501.5101, L501.4700, L100.0100, L3380.1000, L500.4050, L501.5200, L3400.8500 ####[facility] [address] [place], [address] Laboratory - Hematology and Cell countsOrdered By: Babs Marley on 09-12-2024 Anisocytosis Ql (Bld) A [facility] Magnesiumon 09-12-2024 Magnesium [Mass/Vol] 1.6 mg/dL Normal 1.5-2.2 [facility] Comment on above: Performed By: #### L 501.2300, L501.5101, L501.4700, L100.0100, L3380.1000, L500.4050, L501.5200, L3400.8500 ####[facility] [address] [place], [place], [address] No Panel InformationOrdered By: Babs Marley on 09-12-2024 A [facility] Ovalocyte detectionOrdered B y: Babs Marley on 09-12-2024 Ovalocytes LM Ql (Bld) 1+ [facility] Phosphoruson 09-12-2024 Phosphate [Mass/Vol] 3.2 mg/dL Normal 2.7-4.5 [facility] Comment on above: Performed By: #### L 501.2300, L501.5101, L501.4700, L100.0100, L3380.1000, L500.4050, L501.5200, L3400.8500 ####[facility] [address] [place], [address] CBC W/Diff, Automatedon 07-0 PATH REV Reviewed Normal [facility] Comment on above: Result Comment: SEE REPORT IN PATIENT'S EMR AMENDED REPORT 09/07/24 1533 PATH REV previously reported as: June danny Performed By: #### L 501.2300, L501.5101, L500.4050, L501.4700, L501.5200, L3380.1000, L100.0100 ####[facility] [address] [place], [address] L3400.8500on 09-07-2024 CMV Quant DNA Negative Normal Negative [facility] Comment on above: Order Comment: Test( s) [id number]-Kqyjcmzmme (FK506), Bloodwas developed and its performance characteristicsdetermined by [facility]. It has not been cleared or approvedby the Food and Drug Administration. Result Comment: No C MV DNA detected.The quantitative range of this assay is 200 to 1 millionIU/mL. Performed By: #### L 100.0100, L3400.8500, L501.2300, L500.4050, L501.5200, L501.4700, L3380.1000, L501.5101 ####[facility] [address] [place], [address] CMV Quant DNA TNP Normal . [facility] Comment on above: Order Comment: Test( s) 537342-Ggqmuzvpcy (FK506), Bloodwas developed and its performance characteristicsdetermined by [facility]. It has not been cleared or approvedby the Food and Drug Administration. Result Comment: Resu lt Units: log10 IU/mLUnable to calculate result since non-numeric resultobtained for component test. Performed By: #### L 100.0100, L3400.8500, L501.2300, L500.4050, L501.5200, L501.4700, L3380.1000, L501.5101 ####[facility] [address] [place], [address] L501.5101on 09-07-2024 GGTP 69 IU/L Abnormal 0-65 [facility] Comment on above: Order Comment: Test( s) [id number]-Pcsiismyqf (FK506), Bloodwas developed and its performance characteristicsdetermined by [facility]. It has not been cleared or approvedby the Food and Drug Administration. Result Comment: Perf ormed at: [facility] [address] [id number] Director: Sergio Machado MD, Phone: [phone] at: [facility] [address] [id number] Director: Red Graham PhD, Phone: [phone] Performed By: #### L 100.0100, L3400.8500, L501.2300, L500.4050, L501.5200, L501.4700, L3380.1000, L501.5101 ####[facility] [address] [place] [place], [address] Tacrolimus (Prograf)on 09-07 Tacrolimus (Bld) [Mass/Vol] 8.3 ng/mL Normal 5.0-20.0 [facility] Comment on above: Order Comment: Test( s) [id number]-Ixnrwutusq (FK506), Bloodwas developed and its performance characteristicsdetermined by [facility]. It has not been cleared or approvedby the Food and Drug Administration. Result Comment: Targ et steady state trough concentration forTacrolimus varies based on type of organ transplantimmunosuppressive protocol and other patient specificfactors. Tacrolimus trough concentrations should beinterpreted in conjunction with clinical assessmentsof rejection and tolerability. Values obtained withdifferent assay methods cannot be used interchangeablydue to differences in assay methods and cross-reactivtywith metabolites, nor should correction factors beapplied. Therefore, consistent use of one assay forindividual patients is recommended.Detection Limit = 0.5 ng/mLPerformed by LC-MS/MS technology. Performed By: #### L 100.0100, L3400.8500, L501.2300, L500.4050, L501.5200, L501.4700, L3380.1000, L501.5101 ####[facility] [address] [place], [place], [id number] Absolute lymphocyte counton 09-05-2024 Lymphocytes Auto (Unsp spec) [#/Vol] 0.71 10*3/uL Low 0.83-4.51 [facility] Absolute neutrophil counton 09-05-2024 Neutrophils (Bld) [#/Vol] 2.2 10*3/uL 2.0-7.7 [facility] Anion gap in Serum or Plasma on 09-05-2024 Anion gap [Moles/Vol] 11 mmol/L 5-15 [facility] Automated lymphocyte count a s percentage of total leukocyteson 09-05-2024 Lymphocytes/100 WBC Auto (Unsp spec) 19.1 % 19- [facility] BUN/creatinine ratioon 09-05 Urea nitrogen/Creatinine [Mass ratio] 19.8 mg/mg 10- [facility] Basophil percentageon 2024 Basophils/100 WBC (Bld) 1.3 % High 0-1 [facility] Bilirubin directon 5 Bilirubin.direct [Mass/Vol] 0.11 mg/dL 0.00-0.30 [facility] Bilirubin, Directon 09-06-19 25 Bilirubin.direct [Mass/Vol] 0.11 mg/dL Normal 0.00-0.30 [facility] Comment on above: Performed By: #### L 100.0100, L3400.8500, L501.2300, L500.4050, L501.5200, L501.4700, L3380.1000, L501.5101 ####[facility] [address] [place], [place], [id number] Bilirubin, totalon 5 Bilirubin [Mass/Vol] 0.21 mg/dL 0.00-1.30 [facility] CBC W/Diff, Automatedon Absolute Lymph 0.71 X10 3/uL Low 0.83-4.51 [facility] Comment on above: Performed By: #### L 100.0100, L3400.8500, L501.2300, L500.4050, L501.5200, L501.4700, L3380.1000, L501.5101 ####[facility] [address] [place], [address] Absolute Neut 2.2 X10 3/uL Normal 2.0-7.7 [facility] Comment on above: Performed By: #### L 100.0100, L3400.8500, L501.2300, L500.4050, L501.5200, L501.4700, L3380.1000, L501.5101 ####[facility] [address] [place], [address] Basophils/100 WBC (Bld) 1.3 % High 0-1 [facility] Comment on above: Performed By: #### L 100.0100, L3400.8500, L501.2300, L500.4050, L501.5200, L501.4700, L3380.1000, L501.5101 ####[facility] [address] [place], [address] Eosinophils/100 WBC (Bld) 3.2 % Normal 0-5 [facility] Comment on above: Performed By: #### L 100.0100, L3400.8500, L501.2300, L500.4050, L501.5200, L501.4700, L3380.1000, L501.5101 ####[facility] [address] [place], [address] Erythrocyte distribution width (RBC) [Ratio] 15.4 % High 11.6-14.6 [facility] Comment on above: Performed By: #### L 100.0100, L3400.8500, L501.2300, L500.4050, L501.5200, L501.4700, L3380.1000, L501.5101 ####[facility] [address] [place], [address] Hematocrit (Bld) [Volume fraction] 31.4 % Low 40-54 [facility] Comment on above: Performed By: #### L 100.0100, L3400.8500, L501.2300, L500.4050, L501.5200, L501.4700, L3380.1000, L501.5101 ####[facility] [address] [place], [address] Hemoglobin (Bld) [Mass/Vol] 9.9 g/dL Low 13.0-16.5 [facility] Comment on above: Performed By: #### L 100.0100, L3400.8500, L501.2300, L500.4050, L501.5200, L501.4700, L3380.1000, L501.5101 ####[facility] [address] [place], [address] IG% 1.100 High 0.0-0.9 [facility] Comment on above: Result Comment: IG% - Immature Granulocytes (promyelocytes, myelocytes andmetamyelocytes) > 1% indicates that a LEFT SHIFT is Present. Performed By: #### L 100.0100, L3400.8500, L501.2300, L500.4050, L501.5200, L501.4700, L3380.1000, L501.5101 ####[facility] [address] [place], [address] Lymphocytes/100 WBC (Bld) 19.1 % Normal 19-41 [facility] Comment on above: Performed By: #### L 100.0100, L3400.8500, L501.2300, L500.4050, L501.5200, L501.4700, L3380.1000, L501.5101 ####[facility] [address] [place], [address] MCH (RBC) [Entitic mass] 31.8 pg Normal 27.0-32.0 [facility] Comment on above: Performed By: #### L 100.0100, L3400.8500, L501.2300, L500.4050, L501.5200, L501.4700, L3380.1000, L501.5101 ####[facility] [address] [place], [address] MCHC (RBC) [Mass/Vol] 31.5 g/dL Low 32-36 [facility] Comment on above: Performed By: #### L 100.0100, L3400.8500, L501.2300, L500.4050, L501.5200, L501.4700, L3380.1000, L501.5101 ####[facility] [address] [place], [address] MCV (RBC) [Entitic vol] 101.0 fL High 80-94 [facility] Comment on above: Performed By: #### L 100.0100, L3400.8500, L501.2300, L500.4050, L501.5200, L501.4700, L3380.1000, L501.5101 ####[facility] [address] [place], [address] Monocytes/100 WBC (Bld) 17.5 % High 0-10 [facility] Comment on above: Performed By: #### L 100.0100, L3400.8500, L501.2300, L500.4050, L501.5200, L501.4700, L3380.1000, L501.5101 ####[facility] [address] [place], [address] Neutrophils/100 WBC (Bld) 57.8 % Normal 47-70 [facility] Comment on above: Performed By: #### L 100.0100, L3400.8500, L501.2300, L500.4050, L501.5200, L501.4700, L3380.1000, L501.5101 ####[facility] [address] [place], [address] Nucleated RBC (Bld) [#/Vol] 0 10*3/uL Normal 0-5 [facility] Comment on above: Performed By: #### L 100.0100, L3400.8500, L501.2300, L500.4050, L501.5200, L501.4700, L3380.1000, L501.5101 ####[facility] [address] [place], [address] Platelet mean volume (Bld) [Entitic vol] 10.2 fL Normal 6.2-12.0 [facility] Comment on above: Performed By: #### L 100.0100, L3400.8500, L501.2300, L500.4050, L501.5200, L501.4700, L3380.1000, L501.5101 ####[facility] [address] [place], [address] Platelets (Bld) [#/Vol] 495 10*3/uL High 150-450 [facility] Comment on above: Performed By: #### L 100.0100, L3400.8500, L501.2300, L500.4050, L501.5200, L501.4700, L3380.1000, L501.5101 ####[facility] [address] [place], [address] RBC (Bld) [#/Vol] 3.11 10*6/uL Low 4.6-6.2 [facility] Comment on above: Performed By: #### L 100.0100, L3400.8500, L501.2300, L500.4050, L501.5200, L501.4700, L3380.1000, L501.5101 ####[facility] [address] [place], [address] RDW SD 57.1 fl High 35.1-43.9 [facility] Comment on above: Performed By: #### L 100.0100, L3400.8500, L501.2300, L500.4050, L501.5200, L501.4700, L3380.1000, L501.5101 ####[facility] [address] [place], [address] WBC (Bld) [#/Vol] 3.7 10*3/uL Low 4.4-11.0 [facility] Comment on above: Performed By: #### L 100.0100, L3400.8500, L501.2300, L500.4050, L501.5200, L501.4700, L3380.1000, L501.5101 ####[facility] [address] [place], [address] Carbon dioxide, total [Moles /volume] in Central venous bloodon 09-05-2024 CO2 [Moles/Vol] 23.2 mmol/L 21.0-32.0 [facility] Chloride assayon 09-05-2024 Chloride [Moles/Vol] 106 mmol/L 98-108 [facility] Comprehensive Metabolic Prof ilon 09-05-2024 Albumin [Mass/Vol] 3.7 g/dL Normal 3.4-4.8 [facility] Comment on above: Performed By: #### L 100.0100, L3400.8500, L501.2300, L500.4050, L501.5200, L501.4700, L3380.1000, L501.5101 ####[facility] [address] [place], [address] Albumin/Globulin [Mass ratio] 1.3 {ratio} Normal 0.9-2.4 [facility] Comment on above: Performed By: #### L 100.0100, L3400.8500, L501.2300, L500.4050, L501.5200, L501.4700, L3380.1000, L501.5101 ####[facility] [address] [place], [address] ALK PHOS 163 U/L High 40-129 [facility] Comment on above: Performed By: #### L 100.0100, L3400.8500, L501.2300, L500.4050, L501.5200, L501.4700, L3380.1000, L501.5101 ####[facility] [address] [place], [address] ALT [Catalytic activity/Vol] 14 U/L Normal <=46 [facility] Comment on above: Performed By: #### L 100.0100, L3400.8500, L501.2300, L500.4050, L501.5200, L501.4700, L3380.1000, L501.5101 ####[facility] [address] [place], [address] AST [Catalytic activity/Vol] 21 U/L Normal <=37 [facility] Comment on above: Performed By: #### L 100.0100, L3400.8500, L501.2300, L500.4050, L501.5200, L501.4700, L3380.1000, L501.5101 ####[facility] [address] [place], [place], [phone](071) Bilirubin [Mass/Vol] 0.21 mg/dL Normal 0.00-1.30 [facility] Comment on above: Performed By: #### L 100.0100, L3400.8500, L501.2300, L500.4050, L501.5200, L501.4700, L3380.1000, L501.5101 ####[facility] [address] [place], [place], [phone](231) BUN/CRE 19.8 RATIO Normal 10-20 [facility] Comment on above: Performed By: #### L 100.0100, L3400.8500, L501.2300, L500.4050, L501.5200, L501.4700, L3380.1000, L501.5101 ####[facility] [address] [place], [address] Calcium [Mass/Vol] 9.2 mg/dL Normal 7.6-11.0 [facility] Comment on above: Performed By: #### L 100.0100, L3400.8500, L501.2300, L500.4050, L501.5200, L501.4700, L3380.1000, L501.5101 ####[facility] [address] [place], [address] Chloride [Moles/Vol] 106 mmol/L Normal 98-108 [facility] Comment on above: Performed By: #### L 100.0100, L3400.8500, L501.2300, L500.4050, L501.5200, L501.4700, L3380.1000, L501.5101 ####[facility] [address] [place], [address] CO2 [Moles/Vol] 23.2 mmol/L Normal 21.0-32.0 [facility] Comment on above: Performed By: #### L 100.0100, L3400.8500, L501.2300, L500.4050, L501.5200, L501.4700, L3380.1000, L501.5101 ####[facility] [address] [place], [address] Creatinine [Mass/Vol] 1.21 mg/dL High 0.70-1.20 [facility] Comment on above: Performed By: #### L 100.0100, L3400.8500, L501.2300, L500.4050, L501.5200, L501.4700, L3380.1000, L501.5101 ####[facility] [address] [place], [address] GAP 11 Normal 5-15 [facility] Comment on above: Performed By: #### L 100.0100, L3400.8500, L501.2300, L500.4050, L501.5200, L501.4700, L3380.1000, L501.5101 ####[facility] [address] [place], [address] GFR/1.73 sq M.predicted among non-blacks MDRD (S/P/Bld) [Vol rate/Area] 69 mL/min/{1.73_m2} Normal >60 [facility] Comment on above: Result Comment: mL/m in/1.73m2 CKD-EPI Creatinine Equation (2020) Performed By: #### L 100.0100, L3400.8500, L501.2300, L500.4050, L501.5200, L501.4700, L3380.1000, L501.5101 ####[facility] [address] [place], [address] Globulin (S) [Mass/Vol] 2.8 g/dL Normal 2.2-4.2 [facility] Comment on above: Performed By: #### L 100.0100, L3400.8500, L501.2300, L500.4050, L501.5200, L501.4700, L3380.1000, L501.5101 ####[facility] [address] [place], [address] Glucose [Mass/Vol] 93 mg/dL Normal 70-99 [facility] Comment on above: Performed By: #### L 100.0100, L3400.8500, L501.2300, L500.4050, L501.5200, L501.4700, L3380.1000, L501.5101 ####[facility] [address] [place], [address] Potassium [Moles/Vol] 4.4 mmol/L Normal 3.3-5.1 [facility] Comment on above: Performed By: #### L 100.0100, L3400.8500, L501.2300, L500.4050, L501.5200, L501.4700, L3380.1000, L501.5101 ####[facility] [address] [place], [address] Sodium [Moles/Vol] 140 mmol/L Normal 133-145 [facility] Comment on above: Performed By: #### L 100.0100, L3400.8500, L501.2300, L500.4050, L501.5200, L501.4700, L3380.1000, L501.5101 ####[facility] [address] [place], [address] T PROT 6.4 g/dL Normal 5.9-8.4 [facility] Comment on above: Performed By: #### L 100.0100, L3400.8500, L501.2300, L500.4050, L501.5200, L501.4700, L3380.1000, L501.5101 ####[facility] [address] [facility] [place], [address] Urea nitrogen [Mass/Vol] 24 mg/dL High 4-19 [facility] Comment on above: Performed By: #### L 100.0100, L3400.8500, L501.2300, L500.4050, L501.5200, L501.4700, L3380.1000, L501.5101 ####[facility] [address] [facility] [place], [address] Cytomegalovirus (CMV) DNA me asurement by PCR (log units/volume)on 09-05-2024 CMV DNA JACKY+probe (P) [Log units/Vol] TNP [facility] Comment on above: Test not performedRe sult Units: log10 IU/mLUnable to calculate result since non-numeric resultobtained for component test. Eosinophil percentageon Eosinophils/100 WBC (Bld) 3.2 % 0-5 [facility] Erythrocyte distribution wid th ratioon 09-05-2024 Erythrocyte distribution width (RBC) [Ratio] 15.4 % High 11.6-14.6 [facility] Erythrocyte distribution wid th standard deviationon 09-05-2024 Erythrocyte distribution width (RBC) [Ratio] 57.1 fl High 35.1-43.9 [facility] Gamma glutamyl transferase ( GGT) measurementon 09-05-2024 Amylase [Catalytic activity/Vol] 69 U/L High 0-65 [facility] Comment on above: Performed at: [facility] - [address] [id number] Director: Sergio Machado MD, Phone: [phone] at: [facility] - [facility] [address] [place], [place] [id number] Director: Red Graham PhD, Phone: [phone] Glomerular filtration rate ( GFR) estimation/1.73 sq m using serum, plasma, or whole bon 09-05-2024 GFR/1.73 sq M.predicted among non-blacks MDRD (S/P/Bld) [Vol rate/Area] 69 mL/min/{1.73_m2} >60 [facility] Comment on above: mL/min/1.73m2 CKD-EP I Creatinine Equation (2020) Hematocrit Auto (Bld) [Volum e fraction]on 09-05-2024 Hematocrit (Bld) [Volume fraction] 31.4 % Low 40-54 [facility] Hemoglobin measurementon Hemoglobin (Bld) [Mass/Vol] 9.9 g/dL Low 13.0-16.5 [facility] Immature granulocytes/100 WB C Auto (Bld)on 09-05-2024 Immature granulocytes/100 WBC (Bld) 1.100 % High 0.0-0.9 [facility] Comment on above: IG% - Immature Granu locytes (promyelocytes, myelocytes and metamyelocytes) > 1% indicates that a LEFT SHIFT is Present. Laboratory - Chemistry and C hemistry - challengeon 09-05-2024 AST [Catalytic activity/Vol] 21 U/L <38 [facility] MCV (mean corpuscular volume ) determinationon 09-05-2024 MCV (RBC) [Entitic vol] 101.0 fL High 80-94 [facility] Magnesiumon 09-05-2024 Magnesium [Mass/Vol] 1.8 mg/dL Normal 1.5-2.2 [facility] Comment on above: Performed By: #### L 100.0100, L3400.8500, L501.2300, L500.4050, L501.5200, L501.4700, L3380.1000, L501.5101 ####[facility] [address] [place], [place], [id number] Magnesium measurement (mass/ volume)on 09-05-2024 Magnesium (Unsp spec) [Mass/Vol] 1.8 mg/dL 1.5-2.2 [facility] Mean corpuscular hemoglobin (MCH) determinationon 09-05-2024 MCH (RBC) [Entitic mass] 31.8 pg 27.0-32.0 [facility] Mean corpuscular hemoglobin concentration (MCHC) determinationon 09-05-2024 MCHC (RBC) [Mass/Vol] 31.5 g/dL Low 32-36 [facility] Mean platelet volume determi nationon 09-05-2024 Platelet mean volume (Bld) [Entitic vol] 10.2 fL 6.2-12.0 [facility] Monocyte percentageon 2024 Monocytes/100 WBC (Bld) 17.5 % High 0-10 [facility] Neutrophil percentageon 07- Neutrophils/100 WBC (Bld) 57.8 % 47-70 [facility] Nucleated red blood cell per centageon 09-05-2024 Nucleated RBC/100 WBC (Bld) [Ratio] 0 % 0-5 [facility] Phosphoruson 09-05-2024 Phosphate [Mass/Vol] 3.3 mg/dL Normal 2.7-4.5 [facility] Comment on above: Performed By: #### L 100.0100, L3400.8500, L501.2300, L500.4050, L501.5200, L501.4700, L3380.1000, L501.5101 ####[facility] [address] [place], [place], [id number] Platelet counton 09-05-2024 Platelets (Bld) [#/Vol] 495 10*3/uL High 150-450 [facility] Potassium measurement (mass/ volume)on 09-05-2024 Potassium (Unsp spec) [Mass/Vol] 4.4 mmol/L 3.3-5.1 [facility] RBC Auto (Bld) [#/Vol]on RBC (Bld) [#/Vol] 3.11 10*6/uL Low 4.6-6.2 [facility] Serum creatinine measurement (mass/volume)on 09-05-2024 Creatinine [Mass/Vol] 1.21 mg/dL High 0.70-1.20 [facility] Serum globulin measurementon 09-05-2024 Globulin (S) [Mass/Vol] 2.8 g/dL 2.2-4.2 [facility] Serum glucose measurement (m ass/volume)on 09-05-2024 Glucose [Mass/Vol] 93 mg/dL 70-99 [facility] Serum or plasma alanine craig otransferase (ALT) measurementon 09-05-2024 ALT [Catalytic activity/Vol] 14 U/L <47 [facility] Serum or plasma albumin megha urement (mass/volume)on 09-05-2024 Albumin [Mass/Vol] 3.7 g/dL 3.4-4.8 [facility] Serum or plasma albumin/glob ulin mass ratioon 09-05-2024 Albumin/Globulin [Mass ratio] 1.3 {ratio} 0.9-2.4 [facility] Serum or plasma alkaline sal sphatase measurementon 09-05-2024 ALP [Catalytic activity/Vol] 163 U/L High 40-129 [facility] Serum or plasma calcium megha urement (mass/volume)on 09-05-2024 Calcium [Mass/Vol] 9.2 mg/dL 7.6-11.0 [facility] Serum or plasma urea nitroge n measurement (mass/volume)on 09-05-2024 Urea nitrogen [Mass/Vol] 24 mg/dL High 4-19 [facility] Sodium levelon 09-05-2024 Sodium [Moles/Vol] 140 mmol/L 133-145 [facility] Total proteinon 09-05-2024 Protein [Mass/Vol] 6.4 g/dL 5.9-8.4 [facility] White blood cell (WBC) count on 09-05-2024 WBC (Bld) [#/Vol] 3.7 10*3/uL Low 4.4-11.0 [facility] L501.5101on 09-01-2024 GGTP 102 IU/L Abnormal 0-65 [facility] Comment on above: Order Comment: Test( s) 664544-Qklvkqvetu (FK506), Bloodwas developed and its performance characteristicsdetermined by [facility]. It has not been cleared or approvedby the Food and Drug Administration. Result Comment: Perf ormed at: [facility] - [facility] [id number] Director: Sergio Machado MD, Phone: [phone] at: [address] [id number] Director: Red Graham PhD, Phone: [phone] Performed By: #### L 500.4050, L100.0100, L501.2300, L501.5200, L501.4700, L3380.1000, L501.5101 ####[facility] [id number] [place], [place], [address] Tacrolimus (Prograf)on 09-01 Tacrolimus (Bld) [Mass/Vol] 6.8 ng/mL Normal 5.0-20.0 [facility] Comment on above: Order Comment: Test( s) [id number] (FK506), Bloodwas developed and its performance characteristicsdetermined by [facility]. It has not been cleared or approvedby the Food and Drug Administration. Result Comment: Ubaldog et steady state trough concentration forTacrolimus varies based on type of organ transplantimmunosuppressive protocol and other patient specificfactors. Tacrolimus trough concentrations should beinterpreted in conjunction with clinical assessmentsof rejection and tolerability. Values obtained withdifferent assay methods cannot be used interchangeablydue to differences in assay methods and cross-reactivtywith metabolites, nor should correction factors beapplied. Therefore, consistent use of one assay forindividual patients is recommended.Detection Limit = 0.5 ng/mLPerformed by LC-MS/MS technology. Performed By: #### L 500.4050, L100.0100, L501.2300, L501.5200, L501.4700, L3380.1000, L501.5101 ####[facility] [address] [place], [place], [id number] Absolute lymphocyte counton 08-29-2024 Lymphocytes Auto (Unsp spec) [#/Vol] 0.90 10*3/uL 0.83-4.51 [facility] Absolute neutrophil counton 08-29-2024 Neutrophils (Bld) [#/Vol] 2.3 10*3/uL 2.0-7.7 [facility] Anion gap in Serum or Plasma on 08-29-2024 Anion gap [Moles/Vol] 10 mmol/L 5-15 [facility] Automated lymphocyte count a s percentage of total leukocyteson 08-29-2024 Lymphocytes/100 WBC Auto (Unsp spec) 23.0 % 19-41 [facility] BUN/creatinine ratioon 08-29 Urea nitrogen/Creatinine [Mass ratio] 23.7 mg/mg High 10-20 [facility] Basophil percentageon 2024 Basophils/100 WBC (Bld) 1.8 % High 0-1 [facility] Bilirubin directon 5 Bilirubin.direct [Mass/Vol] 0.16 mg/dL 0.00-0.30 [facility] Bilirubin, Directon 08-30-19 25 Bilirubin.direct [Mass/Vol] 0.16 mg/dL Normal 0.00-0.30 [facility] Comment on above: Performed By: #### L 500.4050, L100.0100, L501.2300, L501.5200, L501.4700, L3380.1000, L501.5101 ####[facility] [address] [place], [address] Bilirubin, totalon 5 Bilirubin [Mass/Vol] 0.31 mg/dL 0.00-1.30 [facility] CBC W/Diff, Automatedon 08-02 Absolute Lymph 0.90 X10 3/uL Normal 0.83-4.51 [facility] Comment on above: Performed By: #### L 500.4050, L100.0100, L501.2300, L501.5200, L501.4700, L3380.1000, L501.5101 ####[facility] [address] [place], [address] Absolute Neut 2.3 X10 3/uL Normal 2.0-7.7 [facility] Comment on above: Performed By: #### L 500.4050, L100.0100, L501.2300, L501.5200, L501.4700, L3380.1000, L501.5101 ####[facility] [address] [place], [address] Basophils/100 WBC (Bld) 1.8 % High 0-1 [facility] Comment on above: Performed By: #### L 500.4050, L100.0100, L501.2300, L501.5200, L501.4700, L3380.1000, L501.5101 ####[facility] [address] [place], [address] Eosinophils/100 WBC (Bld) 5.1 % High 0-5 [facility] Comment on above: Performed By: #### L 500.4050, L100.0100, L501.2300, L501.5200, L501.4700, L3380.1000, L501.5101 ####[facility] [address] [place], [address] Erythrocyte distribution width (RBC) [Ratio] 15.8 % High 11.6-14.6 [facility] Comment on above: Performed By: #### L 500.4050, L100.0100, L501.2300, L501.5200, L501.4700, L3380.1000, L501.5101 ####[facility] [address] [place], [address] Hematocrit (Bld) [Volume fraction] 30.7 % Low 40-54 [facility] Comment on above: Performed By: #### L 500.4050, L100.0100, L501.2300, L501.5200, L501.4700, L3380.1000, L501.5101 ####[facility] [address] [place], [address] Hemoglobin (Bld) [Mass/Vol] 9.5 g/dL Low 13.0-16.5 [facility] Comment on above: Performed By: #### L 500.4050, L100.0100, L501.2300, L501.5200, L501.4700, L3380.1000, L501.5101 ####[facility] [address] [place], [address] IG% 1.300 High 0.0-0.9 [facility] Comment on above: Result Comment: IG% - Immature Granulocytes (promyelocytes, myelocytes andmetamyelocytes) > 1% indicates that a LEFT SHIFT is Present. Performed By: #### L 500.4050, L100.0100, L501.2300, L501.5200, L501.4700, L3380.1000, L501.5101 ####[facility] [address] [place], [address] Lymphocytes/100 WBC (Bld) 23.0 % Normal 19-41 [facility] Comment on above: Performed By: #### L 500.4050, L100.0100, L501.2300, L501.5200, L501.4700, L3380.1000, L501.5101 ####[facility] [address] [place], [address] MCH (RBC) [Entitic mass] 31.0 pg Normal 27.0-32.0 [facility] Comment on above: Performed By: #### L 500.4050, L100.0100, L501.2300, L501.5200, L501.4700, L3380.1000, L501.5101 ####[facility] [address] [place], [address] MCHC (RBC) [Mass/Vol] 30.9 g/dL Low 32-36 [facility] Comment on above: Performed By: #### L 500.4050, L100.0100, L501.2300, L501.5200, L501.4700, L3380.1000, L501.5101 ####[facility] [address] [place], [address] MCV (RBC) [Entitic vol] 100.3 fL High 80-94 [facility] Comment on above: Performed By: #### L 500.4050, L100.0100, L501.2300, L501.5200, L501.4700, L3380.1000, L501.5101 ####[facility] [address] [place], [address] Monocytes/100 WBC (Bld) 9.2 % Normal 0-10 [facility] Comment on above: Performed By: #### L 500.4050, L100.0100, L501.2300, L501.5200, L501.4700, L3380.1000, L501.5101 ####[facility] [address] [place], [address] Neutrophils/100 WBC (Bld) 59.6 % Normal 47-70 [facility] Comment on above: Performed By: #### L 500.4050, L100.0100, L501.2300, L501.5200, L501.4700, L3380.1000, L501.5101 ####[facility] [address] [place], [address] Nucleated RBC (Bld) [#/Vol] 0 10*3/uL Normal 0-5 [facility] Comment on above: Performed By: #### L 500.4050, L100.0100, L501.2300, L501.5200, L501.4700, L3380.1000, L501.5101 ####[facility] [address] [place], [address] Platelet mean volume (Bld) [Entitic vol] 10.5 fL Normal 6.2-12.0 [facility] Comment on above: Performed By: #### L 500.4050, L100.0100, L501.2300, L501.5200, L501.4700, L3380.1000, L501.5101 ####[facility] [address] [place], [address] Platelets (Bld) [#/Vol] 424 10*3/uL Normal 150-450 [facility] Comment on above: Performed By: #### L 500.4050, L100.0100, L501.2300, L501.5200, L501.4700, L3380.1000, L501.5101 ####[facility] [address] [place], [address] RBC (Bld) [#/Vol] 3.06 10*6/uL Low 4.6-6.2 [facility] Comment on above: Performed By: #### L 500.4050, L100.0100, L501.2300, L501.5200, L501.4700, L3380.1000, L501.5101 ####[facility] [address] [place], [address] RDW SD 58.3 fl High 35.1-43.9 [facility] Comment on above: Performed By: #### L 500.4050, L100.0100, L501.2300, L501.5200, L501.4700, L3380.1000, L501.5101 ####[facility] [address] [place], [address] WBC (Bld) [#/Vol] 3.9 10*3/uL Low 4.4-11.0 [facility] Comment on above: Performed By: #### L 500.4050, L100.0100, L501.2300, L501.5200, L501.4700, L3380.1000, L501.5101 ####[facility] [address] [place], [address] Carbon dioxide, total [Moles /volume] in Central venous bloodon 08-29-2024 CO2 [Moles/Vol] 26.7 mmol/L 21.0-32.0 [facility] Chloride assayon 08-29-2024 Chloride [Moles/Vol] 103 mmol/L 98-108 [facility] Comprehensive Metabolic Prof ilon 08-29-2024 Albumin [Mass/Vol] 3.8 g/dL Normal 3.4-4.8 [facility] Comment on above: Performed By: #### L 500.4050, L100.0100, L501.2300, L501.5200, L501.4700, L3380.1000, L501.5101 ####[facility] [address] [place], [address] Albumin/Globulin [Mass ratio] 1.5 {ratio} Normal 0.9-2.4 [facility] Comment on above: Performed By: #### L 500.4050, L100.0100, L501.2300, L501.5200, L501.4700, L3380.1000, L501.5101 ####[facility] [address] [place], [address] ALK PHOS 218 U/L High 40-129 [facility] Comment on above: Performed By: #### L 500.4050, L100.0100, L501.2300, L501.5200, L501.4700, L3380.1000, L501.5101 ####[facility] [address] [place], [address] ALT [Catalytic activity/Vol] 19 U/L Normal <=46 [facility] Comment on above: Performed By: #### L 500.4050, L100.0100, L501.2300, L501.5200, L501.4700, L3380.1000, L501.5101 ####[facility] [address] [place], [address] AST [Catalytic activity/Vol] 21 U/L Normal <=37 [facility] Comment on above: Performed By: #### L 500.4050, L100.0100, L501.2300, L501.5200, L501.4700, L3380.1000, L501.5101 ####[facility] [address] [place], [address] Bilirubin [Mass/Vol] 0.31 mg/dL Normal 0.00-1.30 [facility] Comment on above: Performed By: #### L 500.4050, L100.0100, L501.2300, L501.5200, L501.4700, L3380.1000, L501.5101 ####[facility] [address] [place], [address] BUN/CRE 23.7 RATIO High 10-20 [facility] Comment on above: Performed By: #### L 500.4050, L100.0100, L501.2300, L501.5200, L501.4700, L3380.1000, L501.5101 ####[facility] [address] [place], [address] Calcium [Mass/Vol] 9.4 mg/dL Normal 7.6-11.0 [facility] Comment on above: Performed By: #### L 500.4050, L100.0100, L501.2300, L501.5200, L501.4700, L3380.1000, L501.5101 ####[facility] [address] [place], [address] Chloride [Moles/Vol] 103 mmol/L Normal 98-108 [facility] Comment on above: Performed By: #### L 500.4050, L100.0100, L501.2300, L501.5200, L501.4700, L3380.1000, L501.5101 ####[facility] [address] [place], [address] CO2 [Moles/Vol] 26.7 mmol/L Normal 21.0-32.0 [facility] Comment on above: Performed By: #### L 500.4050, L100.0100, L501.2300, L501.5200, L501.4700, L3380.1000, L501.5101 ####[facility] [address] [place], [address] Creatinine [Mass/Vol] 0.94 mg/dL Normal 0.70-1.20 [facility] Comment on above: Performed By: #### L 500.4050, L100.0100, L501.2300, L501.5200, L501.4700, L3380.1000, L501.5101 ####[facility] [address] [place], [address] GAP 10 Normal 5-15 [facility] Comment on above: Performed By: #### L 500.4050, L100.0100, L501.2300, L501.5200, L501.4700, L3380.1000, L501.5101 ####[facility] [address] [place], [address] GFR/1.73 sq M.predicted among non-blacks MDRD (S/P/Bld) [Vol rate/Area] 93 mL/min/{1.73_m2} Normal >60 [facility] Comment on above: Result Comment: mL/m in/1.73m2 CKD-EPI Creatinine Equation (2020) Performed By: #### L 500.4050, L100.0100, L501.2300, L501.5200, L501.4700, L3380.1000, L501.5101 ####[facility] [address] [place], [address] Globulin (S) [Mass/Vol] 2.5 g/dL Normal 2.2-4.2 [facility] Comment on above: Performed By: #### L 500.4050, L100.0100, L501.2300, L501.5200, L501.4700, L3380.1000, L501.5101 ####[facility] [address] [place], [address] Glucose [Mass/Vol] 90 mg/dL Normal 70-99 [facility] Comment on above: Performed By: #### L 500.4050, L100.0100, L501.2300, L501.5200, L501.4700, L3380.1000, L501.5101 ####[facility] [address] [place], [address] Potassium [Moles/Vol] 4.5 mmol/L Normal 3.3-5.1 [facility] Comment on above: Performed By: #### L 500.4050, L100.0100, L501.2300, L501.5200, L501.4700, L3380.1000, L501.5101 ####[facility] [address] [place], [address] Sodium [Moles/Vol] 139 mmol/L Normal 133-145 [facility] Comment on above: Performed By: #### L 500.4050, L100.0100, L501.2300, L501.5200, L501.4700, L3380.1000, L501.5101 ####[facility] [address] [place], [address] T PROT 6.3 g/dL Normal 5.9-8.4 [facility] Comment on above: Performed By: #### L 500.4050, L100.0100, L501.2300, L501.5200, L501.4700, L3380.1000, L501.5101 ####[facility] [address] [place], [address] Urea nitrogen [Mass/Vol] 22 mg/dL High 4-19 [facility] Comment on above: Performed By: #### L 500.4050, L100.0100, L501.2300, L501.5200, L501.4700, L3380.1000, L501.5101 ####[facility] [address] [place], [address] Eosinophil percentageon 06-3 0-2024 Eosinophils/100 WBC (Bld) 5.1 % High 0-5 [facility] Erythrocyte distribution wid th ratioon 08-29-2024 Erythrocyte distribution width (RBC) [Ratio] 15.8 % High 11.6-14.6 [facility] Erythrocyte distribution wid th standard deviationon 08-29-2024 Erythrocyte distribution width (RBC) [Ratio] 58.3 fl High 35.1-43.9 [facility] Gamma glutamyl transferase ( GGT) measurementon 08-29-2024 Amylase [Catalytic activity/Vol] 102 U/L High 0-65 [facility] Comment on above: Performed at: - [address] [id number] Director: Sergio Machado MD, Phone: [phone] at: - [facility] [address] [id number] Director: Red Graham PhD, Phone: [phone] Glomerular filtration rate ( GFR) estimation/1.73 sq m using serum, plasma, or whole bon 08-29-2024 GFR/1.73 sq M.predicted among non-blacks MDRD (S/P/Bld) [Vol rate/Area] 93 mL/min/{1.73_m2} >60 [facility] Comment on above: mL/min/1.73m2 CKD-EP I Creatinine Equation (2020) Hematocrit Auto (Bld) [Volum e fraction]on 08-29-2024 Hematocrit (Bld) [Volume fraction] 30.7 % Low 40-54 [facility] Hemoglobin measurementon Hemoglobin (Bld) [Mass/Vol] 9.5 g/dL Low 13.0-16.5 [facility] Immature granulocytes/100 WB C Auto (Bld)on 08-29-2024 Immature granulocytes/100 WBC (Bld) 1.300 % High 0.0-0.9 [facility] Comment on above: IG% - Immature Granu locytes (promyelocytes, myelocytes and metamyelocytes) > 1% indicates that a LEFT SHIFT is Present. L3410.9992on 08-29-2024 [facility] Misc. Normal . [facility] Comment on above: Order Comment: 34161 0HEB DNA TIGER POUR OFF FROZEN Result Comment: TEST RESULTS LIMITSHBV Real-Time PCR, Quant HBV IU/mL HBV DNA not detected IU/mL log10 HBV IU/mL Unable to calculate result since non-numeric resultobtained for component test. Test Information: The reportable range for this assay is 10 IU/mL to 1billion IU/mL TESTING PERFORMED AT [facility]. ORIGINAL REPORT ON FILE IN LAB CONTAINS ADDITIONAL TEST SITE INFORMATION. Performed By: #### L 3890.6102, L7000.7000, L501.5200, L501.4700, L100.0100, L501.2300, L3890.4000, L3410.9992, L500.4050 ####[facility] [address] [place], [place], [address] Laboratory - Chemistry and C hemistry - challengeon 08-29-2024 AST [Catalytic activity/Vol] 21 U/L <38 [facility] MCV (mean corpuscular volume ) determinationon 08-29-2024 MCV (RBC) [Entitic vol] 100.3 fL High 80-94 [facility] Magnesiumon 08-29-2024 Magnesium [Mass/Vol] 1.6 mg/dL Normal 1.5-2.2 [facility] Comment on above: Performed By: #### L 500.4050, L100.0100, L501.2300, L501.5200, L501.4700, L3380.1000, L501.5101 ####[facility] [address] [place], [place], [address] Magnesium measurement (mass/ volume)on 08-29-2024 Magnesium (Unsp spec) [Mass/Vol] 1.6 mg/dL 1.5-2.2 [facility] Mean corpuscular hemoglobin (MCH) determinationon 08-29-2024 MCH (RBC) [Entitic mass] 31.0 pg 27.0-32.0 [facility] Mean corpuscular hemoglobin concentration (MCHC) determinationon 08-29-2024 MCHC (RBC) [Mass/Vol] 30.9 g/dL Low 32-36 [facility] Mean platelet volume determi nationon 08-29-2024 Platelet mean volume (Bld) [Entitic vol] 10.5 fL 6.2-12.0 [facility] Monocyte percentageon 2024 Monocytes/100 WBC (Bld) 9.2 % 0-10 [facility] Neutrophil percentageon 08-02 0 Neutrophils/100 WBC (Bld) 59.6 % 47-70 [facility] Nucleated red blood cell per centageon 08-29-2024 Nucleated RBC/100 WBC (Bld) [Ratio] 0 % 0-5 [facility] Phosphoruson 08-29-2024 Phosphate [Mass/Vol] 3.5 mg/dL Normal 2.7-4.5 [facility] Comment on above: Performed By: #### L 500.4050, L100.0100, L501.2300, L501.5200, L501.4700, L3380.1000, L501.5101 ####[facility] [address] [place], [address] Platelet counton 08-29-2024 Platelets (Bld) [#/Vol] 424 10*3/uL 150-450 [facility] Potassium measurement (mass/ volume)on 08-29-2024 Potassium (Unsp spec) [Mass/Vol] 4.5 mmol/L 3.3-5.1 [facility] RBC Auto (Bld) [#/Vol]on RBC (Bld) [#/Vol] 3.06 10*6/uL Low 4.6-6.2 [facility] Serum creatinine measurement (mass/volume)on 08-29-2024 Creatinine [Mass/Vol] 0.94 mg/dL 0.70-1.20 [facility] Serum globulin measurementon 08-29-2024 Globulin (S) [Mass/Vol] 2.5 g/dL 2.2-4.2 [facility] Serum glucose measurement (m ass/volume)on 08-29-2024 Glucose [Mass/Vol] 90 mg/dL 70-99 [facility] Serum or plasma alanine craig otransferase (ALT) measurementon 08-29-2024 ALT [Catalytic activity/Vol] 19 U/L <47 [facility] Serum or plasma albumin megha urement (mass/volume)on 08-29-2024 Albumin [Mass/Vol] 3.8 g/dL 3.4-4.8 [facility] Serum or plasma albumin/glob ulin mass ratioon 08-29-2024 Albumin/Globulin [Mass ratio] 1.5 {ratio} 0.9-2.4 [facility] Serum or plasma alkaline sal sphatase measurementon 08-29-2024 ALP [Catalytic activity/Vol] 218 U/L High 40-129 [facility] Serum or plasma calcium megha urement (mass/volume)on 08-29-2024 Calcium [Mass/Vol] 9.4 mg/dL 7.6-11.0 [facility] Serum or plasma urea nitroge n measurement (mass/volume)on 08-29-2024 Urea nitrogen [Mass/Vol] 22 mg/dL High 4-19 [facility] Sodium levelon 08-29-2024 Sodium [Moles/Vol] 139 mmol/L 133-145 [facility] Total proteinon 08-29-2024 Protein [Mass/Vol] 6.3 g/dL 5.9-8.4 [facility] White blood cell (WBC) count on 08-29-2024 WBC (Bld) [#/Vol] 3.9 10*3/uL Low 4.4-11.0 [facility] L501.5101on 08-28-2024 GGTP 154 IU/L Abnormal 0-65 [facility] Comment on above: Order Comment: Test( s) 113493-Hmjdptzowk (FK506), Bloodwas developed and its performance characteristicsdetermined by [facility]. It has not been cleared or approvedby the Food and Drug Administration. Result Comment: Perf ormed at: [facility] [address] [id number] Director: Sergio Machado MD, Phone: [phone] at: [facility] [address] [id number] Director: Red Graham PhD, Phone: [phone] Performed By: #### L 501.2300, L501.5200, L501.4700, L100.0100, L501.5101, L3380.1000, L500.4050 ####[facility] [address] [place], [address] Tacrolimus (Prograf)on 08-28 Tacrolimus (Bld) [Mass/Vol] 9.0 ng/mL Normal 5.0-20.0 [facility] Comment on above: Order Comment: Test( s) 555071-Mybmjdyvaz (FK506), Bloodwas developed and its performance characteristicsdetermined by [facility]. It has not been cleared or approvedby the Food and Drug Administration. Result Comment: Ubaldog et steady state trough concentration forTacrolimus varies based on type of organ transplantimmunosuppressive protocol and other patient specificfactors. Tacrolimus trough concentrations should beinterpreted in conjunction with clinical assessmentsof rejection and tolerability. Values obtained withdifferent assay methods cannot be used interchangeablydue to differences in assay methods and cross-reactivtywith metabolites, nor should correction factors beapplied. Therefore, consistent use of one assay forindividual patients is recommended.Detection Limit = 0.5 ng/mLPerformed by LC-MS/MS technology. Performed By: #### L 501.2300, L501.5200, L501.4700, L100.0100, L501.5101, L3380.1000, L500.4050 ####[facility] [address] [place], [place], [phone] Bilirubin, Directon 08-26-19 25 Bilirubin.direct [Mass/Vol] 0.21 mg/dL Normal 0.00-0.30 [facility] Comment on above: Performed By: #### L 501.2300, L501.5200, L501.4700, L100.0100, L501.5101, L3380.1000, L500.4050 ####[facility] [address] [place], [place], [address] CBC W/Diff, Automatedon 06-2 Absolute Lymph 0.64 X10 3/uL Low 0.83-4.51 [facility] Comment on above: Performed By: #### L 501.2300, L501.5200, L501.4700, L100.0100, L501.5101, L3380.1000, L500.4050 ####[facility] [address] [place], [address] Absolute Neut 2.4 X10 3/uL Normal 2.0-7.7 [facility] Comment on above: Performed By: #### L 501.2300, L501.5200, L501.4700, L100.0100, L501.5101, L3380.1000, L500.4050 ####[facility] [address] [place], [address] Basophils/100 WBC (Bld) 1.3 % High 0-1 [facility] Comment on above: Performed By: #### L 501.2300, L501.5200, L501.4700, L100.0100, L501.5101, L3380.1000, L500.4050 ####[facility] [address] [place], [address] Eosinophils/100 WBC (Bld) 5.1 % High 0-5 [facility] Comment on above: Performed By: #### L 501.2300, L501.5200, L501.4700, L100.0100, L501.5101, L3380.1000, L500.4050 ####[facility] [address] [place], [address] Erythrocyte distribution width (RBC) [Ratio] 16.2 % High 11.6-14.6 [facility] Comment on above: Performed By: #### L 501.2300, L501.5200, L501.4700, L100.0100, L501.5101, L3380.1000, L500.4050 ####[facility] [address] [place], [address] Hematocrit (Bld) [Volume fraction] 32.4 % Low 40-54 [facility] Comment on above: Performed By: #### L 501.2300, L501.5200, L501.4700, L100.0100, L501.5101, L3380.1000, L500.4050 ####[facility] [address] [place], [address] Hemoglobin (Bld) [Mass/Vol] 10.1 g/dL Low 13.0-16.5 [facility] Comment on above: Performed By: #### L 501.2300, L501.5200, L501.4700, L100.0100, L501.5101, L3380.1000, L500.4050 ####[facility] [address] [place], [address] IG% 1.300 High 0.0-0.9 [facility] Comment on above: Result Comment: IG% - Immature Granulocytes (promyelocytes, myelocytes andmetamyelocytes) > 1% indicates that a LEFT SHIFT is Present. Performed By: #### L 501.2300, L501.5200, L501.4700, L100.0100, L501.5101, L3380.1000, L500.4050 ####[facility] [address] [place], [address] Lymphocytes/100 WBC (Bld) 17.3 % Low 19-41 [facility] Comment on above: Performed By: #### L 501.2300, L501.5200, L501.4700, L100.0100, L501.5101, L3380.1000, L500.4050 ####[facility] [address] [place], [address] MCH (RBC) [Entitic mass] 31.2 pg Normal 27.0-32.0 [facility] Comment on above: Performed By: #### L 501.2300, L501.5200, L501.4700, L100.0100, L501.5101, L3380.1000, L500.4050 ####[facility] [address] [place], [address] MCHC (RBC) [Mass/Vol] 31.2 g/dL Low 32-36 [facility] Comment on above: Performed By: #### L 501.2300, L501.5200, L501.4700, L100.0100, L501.5101, L3380.1000, L500.4050 ####[facility] [address] [place], [address] MCV (RBC) [Entitic vol] 100.0 fL High 80-94 [facility] Comment on above: Performed By: #### L 501.2300, L501.5200, L501.4700, L100.0100, L501.5101, L3380.1000, L500.4050 ####[facility] [address] [place], [address] Monocytes/100 WBC (Bld) 9.4 % Normal 0-10 [facility] Comment on above: Performed By: #### L 501.2300, L501.5200, L501.4700, L100.0100, L501.5101, L3380.1000, L500.4050 ####[facility] [address] [place], [address] Neutrophils/100 WBC (Bld) 65.6 % Normal 47-70 [facility] Comment on above: Performed By: #### L 501.2300, L501.5200, L501.4700, L100.0100, L501.5101, L3380.1000, L500.4050 ####[facility] [address] [place], [address] Nucleated RBC (Bld) [#/Vol] 0 10*3/uL Normal 0-5 [facility] Comment on above: Performed By: #### L 501.2300, L501.5200, L501.4700, L100.0100, L501.5101, L3380.1000, L500.4050 ####[facility] [address] [place], [address] Platelet mean volume (Bld) [Entitic vol] 10.9 fL Normal 6.2-12.0 [facility] Comment on above: Performed By: #### L 501.2300, L501.5200, L501.4700, L100.0100, L501.5101, L3380.1000, L500.4050 ####[facility] [address] [place], [address] Platelets (Bld) [#/Vol] 374 10*3/uL Normal 150-450 [facility] Comment on above: Performed By: #### L 501.2300, L501.5200, L501.4700, L100.0100, L501.5101, L3380.1000, L500.4050 ####[facility] [address] [place], [address] RBC (Bld) [#/Vol] 3.24 10*6/uL Low 4.6-6.2 [facility] Comment on above: Performed By: #### L 501.2300, L501.5200, L501.4700, L100.0100, L501.5101, L3380.1000, L500.4050 ####[facility] [address] [place], [address] RDW SD 59.7 fl High 35.1-43.9 [facility] Comment on above: Performed By: #### L 501.2300, L501.5200, L501.4700, L100.0100, L501.5101, L3380.1000, L500.4050 ####[facility] [address] [place], [address] WBC (Bld) [#/Vol] 3.7 10*3/uL Low 4.4-11.0 [facility] Comment on above: Performed By: #### L 501.2300, L501.5200, L501.4700, L100.0100, L501.5101, L3380.1000, L500.4050 ####[facility] [address] [place], [address] Comprehensive Metabolic Prof [facility] 08-25-2024 Albumin [Mass/Vol] 3.8 g/dL Normal 3.4-4.8 [facility] Comment on above: Performed By: #### L 501.2300, L501.5200, L501.4700, L100.0100, L501.5101, L3380.1000, L500.4050 ####[facility] [address] [place], [address] Albumin/Globulin [Mass ratio] 1.3 {ratio} Normal 0.9-2.4 [facility] Comment on above: Performed By: #### L 501.2300, L501.5200, L501.4700, L100.0100, L501.5101, L3380.1000, L500.4050 ####[facility] [address] [place], [address] ALK PHOS 298 U/L High 40-129 [facility] Comment on above: Performed By: #### L 501.2300, L501.5200, L501.4700, L100.0100, L501.5101, L3380.1000, L500.4050 ####[facility] [address] [place], [address] ALT [Catalytic activity/Vol] 42 U/L Normal <=46 [facility] Comment on above: Performed By: #### L 501.2300, L501.5200, L501.4700, L100.0100, L501.5101, L3380.1000, L500.4050 ####[facility] [address] [place], [address] AST [Catalytic activity/Vol] 33 U/L Normal <=37 [facility] Comment on above: Performed By: #### L 501.2300, L501.5200, L501.4700, L100.0100, L501.5101, L3380.1000, L500.4050 ####[facility] [address] [place], [address] Bilirubin [Mass/Vol] 0.28 mg/dL Normal 0.00-1.30 [facility] Comment on above: Performed By: #### L 501.2300, L501.5200, L501.4700, L100.0100, L501.5101, L3380.1000, L500.4050 ####[facility] [address] [place], [address] BUN/CRE 26.1 RATIO High 10-20 [facility] Comment on above: Performed By: #### L 501.2300, L501.5200, L501.4700, L100.0100, L501.5101, L3380.1000, L500.4050 ####[facility] [address] [place], [address] Calcium [Mass/Vol] 9.7 mg/dL Normal 7.6-11.0 [facility] Comment on above: Performed By: #### L 501.2300, L501.5200, L501.4700, L100.0100, L501.5101, L3380.1000, L500.4050 ####[facility] [address] [place], [address] Chloride [Moles/Vol] 103 mmol/L Normal 98-108 [facility] Comment on above: Performed By: #### L 501.2300, L501.5200, L501.4700, L100.0100, L501.5101, L3380.1000, L500.4050 ####[facility] [address] [place], [address] CO2 [Moles/Vol] 25.3 mmol/L Normal 21.0-32.0 [facility] Comment on above: Performed By: #### L 501.2300, L501.5200, L501.4700, L100.0100, L501.5101, L3380.1000, L500.4050 ####[facility] [address] [place], [address] Creatinine [Mass/Vol] 0.96 mg/dL Normal 0.70-1.20 [facility] Comment on above: Performed By: #### L 501.2300, L501.5200, L501.4700, L100.0100, L501.5101, L3380.1000, L500.4050 ####[facility] [address] [place], [address] GAP 11 Normal 5-15 [facility] Comment on above: Performed By: #### L 501.2300, L501.5200, L501.4700, L100.0100, L501.5101, L3380.1000, L500.4050 ####[facility] [address] [place], [address] GFR/1.73 sq M.predicted among non-blacks MDRD (S/P/Bld) [Vol rate/Area] 91 mL/min/{1.73_m2} Normal >60 [facility] Comment on above: Result Comment: mL/m in/1.73m2 CKD-EPI Creatinine Equation (2020) Performed By: #### L 501.2300, L501.5200, L501.4700, L100.0100, L501.5101, L3380.1000, L500.4050 ####[facility] [address] [place], [address] Globulin (S) [Mass/Vol] 2.9 g/dL Normal 2.2-4.2 [facility] Comment on above: Performed By: #### L 501.2300, L501.5200, L501.4700, L100.0100, L501.5101, L3380.1000, L500.4050 ####[facility] [address] [place], [address] Glucose [Mass/Vol] 108 mg/dL High 70-99 [facility] Comment on above: Performed By: #### L 501.2300, L501.5200, L501.4700, L100.0100, L501.5101, L3380.1000, L500.4050 ####[facility] [address] [place], [address] Potassium [Moles/Vol] 4.4 mmol/L Normal 3.3-5.1 [facility] Comment on above: Performed By: #### L 501.2300, L501.5200, L501.4700, L100.0100, L501.5101, L3380.1000, L500.4050 ####[facility] [address] [place], [address] Sodium [Moles/Vol] 139 mmol/L Normal 133-145 [facility] Comment on above: Performed By: #### L 501.2300, L501.5200, L501.4700, L100.0100, L501.5101, L3380.1000, L500.4050 ####[facility] [address] [place], [address] T PROT 6.6 g/dL Normal 5.9-8.4 [facility] Comment on above: Performed By: #### L 501.2300, L501.5200, L501.4700, L100.0100, L501.5101, L3380.1000, L500.4050 ####[facility] [address] [place], [address] Urea nitrogen [Mass/Vol] 25 mg/dL High 4-19 [facility] Comment on above: Performed By: #### L 501.2300, L501.5200, L501.4700, L100.0100, L501.5101, L3380.1000, L500.4050 ####[facility] [address] [place], [address] Gamma glutamyl transferase ( GGT) measurementon 08-25-2024 Amylase [Catalytic activity/Vol] 154 U/L High 0-65 [facility] Comment on above: Performed at: [address] [id number] Director: Sergio Machado MD, Phone: [phone] at: [facility] [id number] Director: Red Graham PhD, Phone: [phone] Magnesiumon 08-25-2024 Magnesium [Mass/Vol] 1.7 mg/dL Normal 1.5-2.2 [facility] Comment on above: Performed By: #### L 501.2300, L501.5200, L501.4700, L100.0100, L501.5101, L3380.1000, L500.4050 ####[facility] [address] [place], [address] Phosphoruson 08-25-2024 Phosphate [Mass/Vol] 2.8 mg/dL Normal 2.7-4.5 [facility] Comment on above: Performed By: #### L 501.2300, L501.5200, L501.4700, L100.0100, L501.5101, L3380.1000, L500.4050 ####[facility] [address] [place], [address] L501.5101on 08-24-2024 GGTP 138 IU/L Abnormal 0-65 [facility] Comment on above: Order Comment: Test( s) 339789-Enwtaelgjw (FK506), Bloodwas developed and its performance characteristicsdetermined by [facility]. It has not been cleared or approvedby the Food and Drug Administration. Result Comment: Perf ormed at: [address] [id number] Director: Sergio Machado MD, Phone: [phone] at: [facility] [id number] [place], [place] [id number] Director: Red Graham PhD, Phone: [phone] Performed By: #### L 501.2300, L501.5101, L500.4050, L501.4700, L501.5200, L3380.1000, L100.0100 ####[facility] [address] [place], [address] Tacrolimus (Prograf)on 08-24 Tacrolimus (Bld) [Mass/Vol] 8.6 ng/mL Normal 5.0-20.0 [facility] Comment on above: Order Comment: Test( s) [id number]-Cixtzoatjk (FK506), Bloodwas developed and its performance characteristicsdetermined by [facility]. It has not been cleared or approvedby the Food and Drug Administration. Result Comment: Targ et steady state trough concentration forTacrolimus varies based on type of organ transplantimmunosuppressive protocol and other patient specificfactors. Tacrolimus trough concentrations should beinterpreted in conjunction with clinical assessmentsof rejection and tolerability. Values obtained withdifferent assay methods cannot be used interchangeablydue to differences in assay methods and cross-reactivtywith metabolites, nor should correction factors beapplied. Therefore, consistent use of one assay forindividual patients is recommended.Detection Limit = 0.5 ng/mLPerformed by LC-MS/MS technology. Performed By: #### L 501.2300, L501.5101, L500.4050, L501.4700, L501.5200, L3380.1000, L100.0100 ####[facility] [address] [place], [address] Bilirubin, Directon 08-23-19 Bilirubin.direct [Mass/Vol] 0.19 mg/dL Normal 0.00-0.30 [facility] Comment on above: Performed By: #### L 501.2300, L501.5101, L500.4050, L501.4700, L501.5200, L3380.1000, L100.0100 ####[facility] [address] [place], [address] Blood manual differential co mment interpretation (narrative result)on 08-22-2024 Manual differential comment Deandre (Bld) [Interp] SCANNED [facility] Comment on above: 2+ HYPERSEGMENTATION Comprehensive Metabolic Prof ilon 08-22-2024 Albumin [Mass/Vol] 3.7 g/dL Normal 3.4-4.8 [facility] Comment on above: Performed By: #### L 501.2300, L501.5101, L500.4050, L501.4700, L501.5200, L3380.1000, L100.0100 ####[facility] [address] [place], [address] Albumin/Globulin [Mass ratio] 1.3 {ratio} Normal 0.9-2.4 [facility] Comment on above: Performed By: #### L 501.2300, L501.5101, L500.4050, L501.4700, L501.5200, L3380.1000, L100.0100 ####[facility] [address] [place], [address] ALK PHOS 304 U/L High 40-129 [facility] Comment on above: Performed By: #### L 501.2300, L501.5101, L500.4050, L501.4700, L501.5200, L3380.1000, L100.0100 ####[facility] [address] [place], [address] ALT [Catalytic activity/Vol] 36 U/L Normal <=46 [facility] Comment on above: Performed By: #### L 501.2300, L501.5101, L500.4050, L501.4700, L501.5200, L3380.1000, L100.0100 ####[facility] [address] [place], [address] AST [Catalytic activity/Vol] 27 U/L Normal <=37 [facility] Comment on above: Performed By: #### L 501.2300, L501.5101, L500.4050, L501.4700, L501.5200, L3380.1000, L100.0100 ####[facility] [address] [place], [address] Bilirubin [Mass/Vol] 0.31 mg/dL Normal 0.00-1.30 [facility] Comment on above: Performed By: #### L 501.2300, L501.5101, L500.4050, L501.4700, L501.5200, L3380.1000, L100.0100 ####[facility] [address] [place], [address] BUN/CRE 22.8 RATIO High 10-20 [facility] Comment on above: Performed By: #### L 501.2300, L501.5101, L500.4050, L501.4700, L501.5200, L3380.1000, L100.0100 ####[facility] [address] [place], [address] Calcium [Mass/Vol] 9.6 mg/dL Normal 7.6-11.0 [facility] Comment on above: Performed By: #### L 501.2300, L501.5101, L500.4050, L501.4700, L501.5200, L3380.1000, L100.0100 ####[facility] [address] [place], [address] Chloride [Moles/Vol] 103 mmol/L Normal 98-108 [facility] Comment on above: Performed By: #### L 501.2300, L501.5101, L500.4050, L501.4700, L501.5200, L3380.1000, L100.0100 ####[facility] [address] [place], [address] CO2 [Moles/Vol] 25.8 mmol/L Normal 21.0-32.0 [facility] Comment on above: Performed By: #### L 501.2300, L501.5101, L500.4050, L501.4700, L501.5200, L3380.1000, L100.0100 ####[facility] [address] [place], [address] Creatinine [Mass/Vol] 1.04 mg/dL Normal 0.70-1.20 [facility] Comment on above: Performed By: #### L 501.2300, L501.5101, L500.4050, L501.4700, L501.5200, L3380.1000, L100.0100 ####[facility] [address] [place], [place], [phone] GAP 11 Normal 5-15 [facility] Comment on above: Performed By: #### L 501.2300, L501.5101, L500.4050, L501.4700, L501.5200, L3380.1000, L100.0100 ####[facility] [address] [place], [address] GFR/1.73 sq M.predicted among non-blacks MDRD (S/P/Bld) [Vol rate/Area] 82 mL/min/{1.73_m2} Normal >60 [facility] Comment on above: Result Comment: mL/m in/1.73m2 CKD-EPI Creatinine Equation (2020) Performed By: #### L 501.2300, L501.5101, L500.4050, L501.4700, L501.5200, L3380.1000, L100.0100 ####[facility] [address] [place], [address] Globulin (S) [Mass/Vol] 2.8 g/dL Normal 2.2-4.2 [facility] Comment on above: Performed By: #### L 501.2300, L501.5101, L500.4050, L501.4700, L501.5200, L3380.1000, L100.0100 ####[facility] [address] [place], [address] Glucose [Mass/Vol] 97 mg/dL Normal 70-99 [facility] Comment on above: Performed By: #### L 501.2300, L501.5101, L500.4050, L501.4700, L501.5200, L3380.1000, L100.0100 ####[facility] [address] [place], [address] Potassium [Moles/Vol] 4.6 mmol/L Normal 3.3-5.1 [facility] Comment on above: Performed By: #### L 501.2300, L501.5101, L500.4050, L501.4700, L501.5200, L3380.1000, L100.0100 ####[facility] [address] [place], [address] Sodium [Moles/Vol] 139 mmol/L Normal 133-145 [facility] Comment on above: Performed By: #### L 501.2300, L501.5101, L500.4050, L501.4700, L501.5200, L3380.1000, L100.0100 ####[facility] [address] [place], [address] T PROT 6.5 g/dL Normal 5.9-8.4 [facility] Comment on above: Performed By: #### L 501.2300, L501.5101, L500.4050, L501.4700, L501.5200, L3380.1000, L100.0100 ####[facility] [address] [place], [address] Urea nitrogen [Mass/Vol] 24 mg/dL High 4-19 [facility] Comment on above: Performed By: #### L 501.2300, L501.5101, L500.4050, L501.4700, L501.5200, L3380.1000, L100.0100 ####[facility] [address] [place], [place], [phone] L501.5101on 08-22-2024 GGTP 128 IU/L Abnormal 0-65 [facility] Comment on above: Order Comment: Test( s) [id number]-Liyewscija (FK506), Bloodwas developed and its performance characteristicsdetermined by [facility]. It has not been cleared or approvedby the Food and Drug Administration. Result Comment: Perf ormed at: [facility] [address] [id number] Director: Sergio Machado MD, Phone: [phone] at: [facility] [address] [id number] Director: Red Graham PhD, Phone: [phone] Performed By: #### L 3380.1000, L501.5101, L100.0100, L501.5200, L500.4050, L501.2300, L501.4700 ####[facility] [address] [place], [place], [phone] Magnesiumon 08-22-2024 Magnesium [Mass/Vol] 1.6 mg/dL Normal 1.5-2.2 [facility] Comment on above: Performed By: #### L 501.2300, L501.5101, L500.4050, L501.4700, L501.5200, L3380.1000, L100.0100 ####[facility] [address] [place], [address] Phosphoruson 08-22-2024 Phosphate [Mass/Vol] 3.2 mg/dL Normal 2.7-4.5 [facility] Comment on above: Performed By: #### L 501.2300, L501.5101, L500.4050, L501.4700, L501.5200, L3380.1000, L100.0100 ####[facility] [address] [place], [place], [id number] Review by pathologiston 08-01 Pathologist review Deandre (Unsp spec) [Interp] Patricia delgado [facility] Pathologist review Deandre (Unsp spec) [Interp] Reviewed [facility] Comment on above: Previous reported re sult: Patricia delgado Edited by: SAMIR on 09/07/24:1533SEE REPORT IN PATIENT'S EMR AMENDED REPORT 09/07/24 153 PATH REV previously reported as: Patricia delgado Tacrolimus (Prograf)on 08-22 Tacrolimus (Bld) [Mass/Vol] 8.3 ng/mL Normal 5.0-20.0 [facility] Comment on above: Order Comment: Test( s) [id number]-Mvlaldhnpt (FK506), Bloodwas developed and its performance characteristicsdetermined by [facility]. It has not been cleared or approvedby the Food and Drug Administration. Result Comment: Targ et steady state trough concentration forTacrolimus varies based on type of organ transplantimmunosuppressive protocol and other patient specificfactors. Tacrolimus trough concentrations should beinterpreted in conjunction with clinical assessmentsof rejection and tolerability. Values obtained withdifferent assay methods cannot be used interchangeablydue to differences in assay methods and cross-reactivtywith metabolites, nor should correction factors beapplied. Therefore, consistent use of one assay forindividual patients is recommended.Detection Limit = 0.5 ng/mLPerformed by LC-MS/MS technology. Performed By: #### L 3380.1000, L501.5101, L100.0100, L501.5200, L500.4050, L501.2300, L501.4700 ####[facility] [address] [place], [place], [phone] Bilirubin, Directon 08-19-19 Bilirubin.direct [Mass/Vol] 0.17 mg/dL Normal 0.00-0.30 [facility] Comment on above: Performed By: #### L 3380.1000, L501.5101, L100.0100, L501.5200, L500.4050, L501.2300, L501.4700 ####[facility] [address] [place], [address] CBC W/Diff, Automatedon 06- SMEAR COMMENT SCANNED Normal [facility] Comment on above: Performed By: #### L 3380.1000, L501.5101, L100.0100, L501.5200, L500.4050, L501.2300, L501.4700 ####[facility] [address] [place], [address] Comprehensive Metabolic Prof ilon 08-18-2024 Albumin [Mass/Vol] 3.8 g/dL Normal 3.4-4.8 [facility] Comment on above: Performed By: #### L 3380.1000, L501.5101, L100.0100, L501.5200, L500.4050, L501.2300, L501.4700 ####[facility] [address] [place], [place], [id number] Albumin/Globulin [Mass ratio] 1.5 {ratio} Normal 0.9-2.4 [facility] Comment on above: Performed By: #### L 3380.1000, L501.5101, L100.0100, L501.5200, L500.4050, L501.2300, L501.4700 ####[facility] [address] [place], [address] ALK PHOS 307 U/L High 40-129 [facility] Comment on above: Performed By: #### L 3380.1000, L501.5101, L100.0100, L501.5200, L500.4050, L501.2300, L501.4700 ####[facility] [address] [place], [address] ALT [Catalytic activity/Vol] 43 U/L Normal <=46 [facility] Comment on above: Performed By: #### L 3380.1000, L501.5101, L100.0100, L501.5200, L500.4050, L501.2300, L501.4700 ####[facility] [address] [place], [address] AST [Catalytic activity/Vol] 30 U/L Normal <=37 [facility] Comment on above: Performed By: #### L 3380.1000, L501.5101, L100.0100, L501.5200, L500.4050, L501.2300, L501.4700 ####[facility] [address] [place], [address] Bilirubin [Mass/Vol] 0.29 mg/dL Normal 0.00-1.30 [facility] Comment on above: Performed By: #### L 3380.1000, L501.5101, L100.0100, L501.5200, L500.4050, L501.2300, L501.4700 ####[facility] [address] [place], [address] BUN/CRE 24.1 RATIO High 10-20 [facility] Comment on above: Performed By: #### L 3380.1000, L501.5101, L100.0100, L501.5200, L500.4050, L501.2300, L501.4700 ####[facility] [address] [place], [address] Calcium [Mass/Vol] 9.5 mg/dL Normal 7.6-11.0 [facility] Comment on above: Performed By: #### L 3380.1000, L501.5101, L100.0100, L501.5200, L500.4050, L501.2300, L501.4700 ####[facility] [address] [place], [address] Chloride [Moles/Vol] 103 mmol/L Normal 98-108 [facility] Comment on above: Performed By: #### L 3380.1000, L501.5101, L100.0100, L501.5200, L500.4050, L501.2300, L501.4700 ####[facility] [address] [place], [address] CO2 [Moles/Vol] 25.6 mmol/L Normal 21.0-32.0 [facility] Comment on above: Performed By: #### L 3380.1000, L501.5101, L100.0100, L501.5200, L500.4050, L501.2300, L501.4700 ####[facility] [address] [place], [place], [phone]) Creatinine [Mass/Vol] 0.91 mg/dL Normal 0.70-1.20 [facility] Comment on above: Performed By: #### L 3380.1000, L501.5101, L100.0100, L501.5200, L500.4050, L501.2300, L501.4700 ####[facility] [address] [place], [place], [id number] GAP 10 Normal 5-15 [facility] Comment on above: Performed By: #### L 3380.1000, L501.5101, L100.0100, L501.5200, L500.4050, L501.2300, L501.4700 ####[facility] [address] [place], [place], [phone]) GFR/1.73 sq M.predicted among non-blacks MDRD (S/P/Bld) [Vol rate/Area] 96 mL/min/{1.73_m2} Normal >60 [facility] Comment on above: Result Comment: mL/m in/1.73m2 CKD-EPI Creatinine Equation (2020) Performed By: #### L 3380.1000, L501.5101, L100.0100, L501.5200, L500.4050, L501.2300, L501.4700 ####[facility] [address] [place], [address] Globulin (S) [Mass/Vol] 2.5 g/dL Normal 2.2-4.2 [facility] Comment on above: Performed By: #### L 3380.1000, L501.5101, L100.0100, L501.5200, L500.4050, L501.2300, L501.4700 ####[facility] [address] [place], [address] Glucose [Mass/Vol] 97 mg/dL Normal 70-99 [facility] Comment on above: Performed By: #### L 3380.1000, L501.5101, L100.0100, L501.5200, L500.4050, L501.2300, L501.4700 ####[facility] [address] [place], [address] Potassium [Moles/Vol] 4.5 mmol/L Normal 3.3-5.1 [facility] Comment on above: Performed By: #### L 3380.1000, L501.5101, L100.0100, L501.5200, L500.4050, L501.2300, L501.4700 ####[facility] [address] [place], [address] Sodium [Moles/Vol] 139 mmol/L Normal 133-145 [facility] Comment on above: Performed By: #### L 3380.1000, L501.5101, L100.0100, L501.5200, L500.4050, L501.2300, L501.4700 ####[facility] [address] [place], [address] T PROT 6.3 g/dL Normal 5.9-8.4 [facility] Comment on above: Performed By: #### L 3380.1000, L501.5101, L100.0100, L501.5200, L500.4050, L501.2300, L501.4700 ####[facility] [address] [place], [address] Urea nitrogen [Mass/Vol] 22 mg/dL High - [facility] Comment on above: Performed By: #### L 3380.1000, L501.5101, L100.0100, L501.5200, L500.4050, L501.2300, L501.4700 ####[facility] [address] [place], [address] L3410.9992on 08-18-2024 [facility]. COMMENT Normal . [facility] Comment on above: Order Comment: [id number] 4Phosphatidylethanol WB EDTA RT Result Comment: Test Ordered: [id number] Phosphatidylethanol (PEth)PHOSPHATIDYLETHANOL Negative MX Reference Range: .Phosphatidylethanol (PEth) Negative ng/mL MX Reference Range: .Analyzed compound: PEth 16:0/18:1. 0-rlzgulktw-6-zrfsgd-ai-vpijgkd-3-phosphoethanol.Analysis performed by Liquid Chromatography withTandem Mass Spectrometry (LC/MS/MS).Detection limit: 20 ng/mLPEth levels in excess of 20 ng/mL are considered evidenceof moderate to heavy ethanol consumption. However,the [facility] (CSAT) advisescaution in interpretation and use of biomarkers aloneto assess alcohol use. Results should be interpretedin the context of all available clinical and behavioralinformation.Reference: Substance Abuse and Mental Health Services Administration (2012). The Role of Biomarkers in the Treatment of Alcohol Use Disorders, 2012 Revision. Advisory, Volume 11, Issue 2.This test was developed and its performance characteristicsdetermined by [facility]. It has not been cleared or approvedby the Food and Drug Administration.Performed at: [facility] [address] [id number] Director: Clau Abdalla [facility], Phone: [phone] at: [facility] [id number] [place], [place] [id number] Director: Red Graham PhD, Phone: [phone] Performed By: #### L 3410.9992, L501.4700, L501.2300, L3380.1000, L501.5200, L501.5101 ####[facility] [address] [place], [place], [id number] L501.5101on 08-18-2024 GGTP 168 IU/L Abnormal 0-65 [facility] Comment on above: Order Comment: Test( s) [id number] (FK506), Bloodwas developed and its performance characteristicsdetermined by [facility]. It has not been cleared or approvedby the Food and Drug Administration. Result Comment: Perf ormed at: [facility] [address] [id number] Director: Sergio Machado MD, Phone: [phone] at: [facility] [address] [id number] Director: Red Graham PhD, Phone: [phone] Performed By: #### L 501.5200, L501.2300, L3380.1000, L501.5101, L501.4700, L500.4050, L100.0100 ####[facility] [address] [place], [place], [phone] Magnesiumon 08-18-2024 Magnesium [Mass/Vol] 1.4 mg/dL Low 1.5-2.2 [facility] Comment on above: Performed By: #### L 3380.1000, L501.5101, L100.0100, L501.5200, L500.4050, L501.2300, L501.4700 ####[facility] [address] [place], [address] Phosphoruson 08-18-2024 Phosphate [Mass/Vol] 3.5 mg/dL Normal 2.7-4.5 [facility] Comment on above: Performed By: #### L 3380.1000, L501.5101, L100.0100, L501.5200, L500.4050, L501.2300, L501.4700 ####[facility] [address] [place], [address] Tacrolimus (Prograf)on 08-18 Tacrolimus (Bld) [Mass/Vol] 8.5 ng/mL Normal 5.0-20.0 [facility] Comment on above: Order Comment: Test( s) [id number]-Epjzcujuvw (FK506), Bloodwas developed and its performance characteristicsdetermined by [facility]. It has not been cleared or approvedby the Food and Drug Administration. Result Comment: Targ et steady state trough concentration forTacrolimus varies based on type of organ transplantimmunosuppressive protocol and other patient specificfactors. Tacrolimus trough concentrations should beinterpreted in conjunction with clinical assessmentsof rejection and tolerability. Values obtained withdifferent assay methods cannot be used interchangeablydue to differences in assay methods and cross-reactivtywith metabolites, nor should correction factors beapplied. Therefore, consistent use of one assay forindividual patients is recommended.Detection Limit = 0.5 ng/mLPerformed by LC-MS/MS technology. Performed By: #### L 501.5200, L501.2300, L3380.1000, L501.5101, L501.4700, L500.4050, L100.0100 ####[facility] [address] [place], [address] Oncology Visit Reporton 07-31 Oncology Visit Report Normal [facility] Bilirubin, Directon 08-17-19 25 Bilirubin.direct [Mass/Vol] 0.27 mg/dL Normal 0.00-0.30 [facility] Comment on above: Performed By: #### L 501.5200, L501.2300, L3380.1000, L501.5101, L501.4700, L500.4050, L100.0100 ####[facility] [address] [place], [address] Comprehensive Metabolic Prof ilon 08-16-2024 Albumin [Mass/Vol] 4.0 g/dL Normal 3.4-4.8 [facility] Comment on above: Performed By: #### L 501.5200, L501.2300, L3380.1000, L501.5101, L501.4700, L500.4050, L100.0100 ####[facility] [address] [place], [address] Albumin/Globulin [Mass ratio] 1.5 {ratio} Normal 0.9-2.4 [facility] Comment on above: Performed By: #### L 501.5200, L501.2300, L3380.1000, L501.5101, L501.4700, L500.4050, L100.0100 ####[facility] [address] [place], [address] ALK PHOS 364 U/L High 40-129 [facility] Comment on above: Performed By: #### L 501.5200, L501.2300, L3380.1000, L501.5101, L501.4700, L500.4050, L100.0100 ####[facility] [address] [place], [address] ALT [Catalytic activity/Vol] 71 U/L High <=46 [facility] Comment on above: Performed By: #### L 501.5200, L501.2300, L3380.1000, L501.5101, L501.4700, L500.4050, L100.0100 ####[facility] [address] [place], [address] AST [Catalytic activity/Vol] 43 U/L High <=37 [facility] Comment on above: Performed By: #### L 501.5200, L501.2300, L3380.1000, L501.5101, L501.4700, L500.4050, L100.0100 ####[facility] [address] [place], [address] Bilirubin [Mass/Vol] 0.43 mg/dL Normal 0.00-1.30 [facility] Comment on above: Performed By: #### L 501.5200, L501.2300, L3380.1000, L501.5101, L501.4700, L500.4050, L100.0100 ####[facility] [address] [place], [address] BUN/CRE 31.0 RATIO High 10-20 [facility] Comment on above: Performed By: #### L 501.5200, L501.2300, L3380.1000, L501.5101, L501.4700, L500.4050, L100.0100 ####[facility] [address] [place], [address] Calcium [Mass/Vol] 9.9 mg/dL Normal 7.6-11.0 [facility] Comment on above: Performed By: #### L 501.5200, L501.2300, L3380.1000, L501.5101, L501.4700, L500.4050, L100.0100 ####[facility] [address] [place], [address] Chloride [Moles/Vol] 103 mmol/L Normal 98-108 [facility] Comment on above: Performed By: #### L 501.5200, L501.2300, L3380.1000, L501.5101, L501.4700, L500.4050, L100.0100 ####[facility] [address] [place], [address] CO2 [Moles/Vol] 25.8 mmol/L Normal 21.0-32.0 [facility] Comment on above: Performed By: #### L 501.5200, L501.2300, L3380.1000, L501.5101, L501.4700, L500.4050, L100.0100 ####[facility] [address] [place], [address] Creatinine [Mass/Vol] 0.88 mg/dL Normal 0.70-1.20 [facility] Comment on above: Performed By: #### L 501.5200, L501.2300, L3380.1000, L501.5101, L501.4700, L500.4050, L100.0100 ####[facility] [address] [place], [address] GAP 10 Normal 5-15 [facility] Comment on above: Performed By: #### L 501.5200, L501.2300, L3380.1000, L501.5101, L501.4700, L500.4050, L100.0100 ####[facility] [address] [place], [address] GFR/1.73 sq M.predicted among non-blacks MDRD (S/P/Bld) [Vol rate/Area] 98 mL/min/{1.73_m2} Normal >60 [facility] Comment on above: Result Comment: mL/m in/1.73m2 CKD-EPI Creatinine Equation (2020) Performed By: #### L 501.5200, L501.2300, L3380.1000, L501.5101, L501.4700, L500.4050, L100.0100 ####[facility] [address] [place], [address] Globulin (S) [Mass/Vol] 2.7 g/dL Normal 2.2-4.2 [facility] Comment on above: Performed By: #### L 501.5200, L501.2300, L3380.1000, L501.5101, L501.4700, L500.4050, L100.0100 ####[facility] [address] [place], [address] Glucose [Mass/Vol] 125 mg/dL High 70-99 [facility] Comment on above: Performed By: #### L 501.5200, L501.2300, L3380.1000, L501.5101, L501.4700, L500.4050, L100.0100 ####[facility] [address] [place], [address] Potassium [Moles/Vol] 4.3 mmol/L Normal 3.3-5.1 [facility] Comment on above: Performed By: #### L 501.5200, L501.2300, L3380.1000, L501.5101, L501.4700, L500.4050, L100.0100 ####[facility] [address] [place], [address] Sodium [Moles/Vol] 139 mmol/L Normal 133-145 [facility] Comment on above: Performed By: #### L 501.5200, L501.2300, L3380.1000, L501.5101, L501.4700, L500.4050, L100.0100 ####[facility] [address] [place], [address] T PROT 6.6 g/dL Normal 5.9-8.4 [facility] Comment on above: Performed By: #### L 501.5200, L501.2300, L3380.1000, L501.5101, L501.4700, L500.4050, L100.0100 ####[facility] [address] [place], [address] Urea nitrogen [Mass/Vol] 27 mg/dL High 4-19 [facility] Comment on above: Performed By: #### L 501.5200, L501.2300, L3380.1000, L501.5101, L501.4700, L500.4050, L100.0100 ####[facility] [address] [place], [address] Absolute lymphocyte counton 08-15-2024 Lymphocytes Auto (Unsp spec) [#/Vol] 0.75 10*3/uL Low 0.83-4.51 [facility] Absolute neutrophil counton 08-15-2024 Neutrophils (Bld) [#/Vol] 3.1 10*3/uL 2.0-7.7 [facility] Anion gap in Serum or Plasma on 08-15-2024 Anion gap [Moles/Vol] 10 mmol/L 5-15 [facility] Automated lymphocyte count a s percentage of total leukocyteson 08-15-2024 Lymphocytes/100 WBC Auto (Unsp spec) 16.8 % Low 19-41 [facility] BUN/creatinine ratioon 08-15 Urea nitrogen/Creatinine [Mass ratio] 31.0 mg/mg High 10-20 [facility] Basophil percentageon 2024 Basophils/100 WBC (Bld) 1.6 % High 0-1 [facility] Bilirubin directon 5 Bilirubin.direct [Mass/Vol] 0.27 mg/dL 0.00-0.30 [facility] Bilirubin, totalon 5 Bilirubin [Mass/Vol] 0.43 mg/dL 0.00-1.30 [facility] CBC W/Diff, Automatedon 07-31 Absolute Lymph 0.75 X10 3/uL Low 0.83-4.51 [facility] Comment on above: Performed By: #### L 501.5200, L501.2300, L3380.1000, L501.5101, L501.4700, L500.4050, L100.0100 ####[facility] [address] [place], [address] Absolute Neut 3.1 X10 3/uL Normal 2.0-7.7 [facility] Comment on above: Performed By: #### L 501.5200, L501.2300, L3380.1000, L501.5101, L501.4700, L500.4050, L100.0100 ####[facility] [address] [place], [address] Basophils/100 WBC (Bld) 1.6 % High 0-1 [facility] Comment on above: Performed By: #### L 501.5200, L501.2300, L3380.1000, L501.5101, L501.4700, L500.4050, L100.0100 ####[facility] [address] [place], [address] Eosinophils/100 WBC (Bld) 1.8 % Normal 0-5 [facility] Comment on above: Performed By: #### L 501.5200, L501.2300, L3380.1000, L501.5101, L501.4700, L500.4050, L100.0100 ####[facility] [address] [place], [address] Erythrocyte distribution width (RBC) [Ratio] 17.0 % High 11.6-14.6 [facility] Comment on above: Performed By: #### L 501.5200, L501.2300, L3380.1000, L501.5101, L501.4700, L500.4050, L100.0100 ####[facility] [address] [place], [address] Hematocrit (Bld) [Volume fraction] 33.6 % Low 40-54 [facility] Comment on above: Performed By: #### L 501.5200, L501.2300, L3380.1000, L501.5101, L501.4700, L500.4050, L100.0100 ####[facility] [address] [place], [address] Hemoglobin (Bld) [Mass/Vol] 10.7 g/dL Low 13.0-16.5 [facility] Comment on above: Performed By: #### L 501.5200, L501.2300, L3380.1000, L501.5101, L501.4700, L500.4050, L100.0100 ####[facility] [address] [place], [address] IG% 1.600 High 0.0-0.9 [facility] Comment on above: Result Comment: IG% - Immature Granulocytes (promyelocytes, myelocytes andmetamyelocytes) > 1% indicates that a LEFT SHIFT is Present. Performed By: #### L 501.5200, L501.2300, L3380.1000, L501.5101, L501.4700, L500.4050, L100.0100 ####[facility] [address] [place], [address] Lymphocytes/100 WBC (Bld) 16.8 % Low 19-41 [facility] Comment on above: Performed By: #### L 501.5200, L501.2300, L3380.1000, L501.5101, L501.4700, L500.4050, L100.0100 ####[facility] [address] [place], [address] MCH (RBC) [Entitic mass] 31.8 pg Normal 27.0-32.0 [facility] Comment on above: Performed By: #### L 501.5200, L501.2300, L3380.1000, L501.5101, L501.4700, L500.4050, L100.0100 ####[facility] [address] [place], [address] MCHC (RBC) [Mass/Vol] 31.8 g/dL Low 32-36 [facility] Comment on above: Performed By: #### L 501.5200, L501.2300, L3380.1000, L501.5101, L501.4700, L500.4050, L100.0100 ####[facility] [address] [place], [address] MCV (RBC) [Entitic vol] 99.7 fL High 80-94 [facility] Comment on above: Performed By: #### L 501.5200, L501.2300, L3380.1000, L501.5101, L501.4700, L500.4050, L100.0100 ####[facility] [address] [place], [address] Monocytes/100 WBC (Bld) 8.1 % Normal 0-10 [facility] Comment on above: Performed By: #### L 501.5200, L501.2300, L3380.1000, L501.5101, L501.4700, L500.4050, L100.0100 ####[facility] [address] [place], [address] Neutrophils/100 WBC (Bld) 70.1 % High 47-70 [facility] Comment on above: Performed By: #### L 501.5200, L501.2300, L3380.1000, L501.5101, L501.4700, L500.4050, L100.0100 ####[facility] [address] [place], [address] Nucleated RBC (Bld) [#/Vol] 0 10*3/uL Normal 0-5 [facility] Comment on above: Performed By: #### L 501.5200, L501.2300, L3380.1000, L501.5101, L501.4700, L500.4050, L100.0100 ####[facility] [address] [place], [address] Platelet mean volume (Bld) [Entitic vol] 10.5 fL Normal 6.2-12.0 [facility] Comment on above: Performed By: #### L 501.5200, L501.2300, L3380.1000, L501.5101, L501.4700, L500.4050, L100.0100 ####[facility] [address] [place], [address] Platelets (Bld) [#/Vol] 411 10*3/uL Normal 150-450 [facility] Comment on above: Performed By: #### L 501.5200, L501.2300, L3380.1000, L501.5101, L501.4700, L500.4050, L100.0100 ####[facility] [address] [place], [address] RBC (Bld) [#/Vol] 3.37 10*6/uL Low 4.6-6.2 [facility] Comment on above: Performed By: #### L 501.5200, L501.2300, L3380.1000, L501.5101, L501.4700, L500.4050, L100.0100 ####[facility] [address] [place], [address] RDW SD 62.9 fl High 35.1-43.9 [facility] Comment on above: Performed By: #### L 501.5200, L501.2300, L3380.1000, L501.5101, L501.4700, L500.4050, L100.0100 ####[facility] [address] [place], [address] WBC (Bld) [#/Vol] 4.5 10*3/uL Normal 4.4-11.0 [facility] Comment on above: Performed By: #### L 501.5200, L501.2300, L3380.1000, L501.5101, L501.4700, L500.4050, L100.0100 ####[facility] [address] [place], [address] Carbon dioxide, total [Moles /volume] in Central venous bloodon 08-15-2024 CO2 [Moles/Vol] 25.8 mmol/L 21.0-32.0 [facility] Chloride assayon 08-15-2024 Chloride [Moles/Vol] 103 mmol/L 98-108 [facility] Eosinophil percentageon 07-31 Eosinophils/100 WBC (Bld) 1.8 % 0-5 [facility] Erythrocyte distribution wid th ratioon 08-15-2024 Erythrocyte distribution width (RBC) [Ratio] 17.0 % High 11.6-14.6 [facility] Erythrocyte distribution wid th standard deviationon 08-15-2024 Erythrocyte distribution width (RBC) [Ratio] 62.9 fl High 35.1-43.9 [facility] Glomerular filtration rate ( GFR) estimation/1.73 sq m using serum, plasma, or whole bon 08-15-2024 GFR/1.73 sq M.predicted among non-blacks MDRD (S/P/Bld) [Vol rate/Area] 98 mL/min/{1.73_m2} >60 [facility] Comment on above: mL/min/1.73m2 CKD-EP I Creatinine Equation (2020) Hematocrit Auto (Bld) [Volum e fraction]on 08-15-2024 Hematocrit (Bld) [Volume fraction] 33.6 % Low 40-54 [facility] Hemoglobin measurementon Hemoglobin (Bld) [Mass/Vol] 10.7 g/dL Low 13.0-16.5 [facility] Immature granulocytes/100 WB C Auto (Bld)on 08-15-2024 Immature granulocytes/100 WBC (Bld) 1.600 % High 0.0-0.9 [facility] Comment on above: IG% - Immature Granu locytes (promyelocytes, myelocytes and metamyelocytes) > 1% indicates that a LEFT SHIFT is Present. Laboratory - Chemistry and C hemistry - challengeon 08-15-2024 AST [Catalytic activity/Vol] 43 U/L High <38 [facility] MCV (mean corpuscular volume ) determinationon 08-15-2024 MCV (RBC) [Entitic vol] 99.7 fL High 80-94 [facility] Magnesiumon 08-15-2024 Magnesium [Mass/Vol] 1.6 mg/dL Normal 1.5-2.2 [facility] Comment on above: Performed By: #### L 501.5200, L501.2300, L3380.1000, L501.5101, L501.4700, L500.4050, L100.0100 ####[facility] [address] [place], [address] Magnesium measurement (mass/ volume)on 08-15-2024 Magnesium (Unsp spec) [Mass/Vol] 1.6 mg/dL 1.5-2.2 [facility] Mean corpuscular hemoglobin (MCH) determinationon 08-15-2024 MCH (RBC) [Entitic mass] 31.8 pg 27.0-32.0 [facility] Mean corpuscular hemoglobin concentration (MCHC) determinationon 08-15-2024 MCHC (RBC) [Mass/Vol] 31.8 g/dL Low 32-36 [facility] Mean platelet volume determi nationon 08-15-2024 Platelet mean volume (Bld) [Entitic vol] 10.5 fL 6.2-12.0 [facility] Monocyte percentageon 2024 Monocytes/100 WBC (Bld) 8.1 % 0-10 [facility] Neutrophil percentageon 07-31 Neutrophils/100 WBC (Bld) 70.1 % High 47-70 [facility] Nucleated red blood cell per centageon 08-15-2024 Nucleated RBC/100 WBC (Bld) [Ratio] 0 % 0-5 [facility] Phosphoruson 08-15-2024 Phosphate [Mass/Vol] 3.0 mg/dL Normal 2.7-4.5 [facility] Comment on above: Performed By: #### L 501.5200, L501.2300, L3380.1000, L501.5101, L501.4700, L500.4050, L100.0100 ####[facility] [id number] [place], [address] Platelet counton 08-15-2024 Platelets (Bld) [#/Vol] 411 10*3/uL 150-450 [facility] Potassium measurement (mass/ volume)on 08-15-2024 Potassium (Unsp spec) [Mass/Vol] 4.3 mmol/L 3.3-5.1 [facility] RBC Auto (Bld) [#/Vol]on RBC (Bld) [#/Vol] 3.37 10*6/uL Low 4.6-6.2 [facility] Serum creatinine measurement (mass/volume)on 08-15-2024 Creatinine [Mass/Vol] 0.88 mg/dL 0.70-1.20 [facility] Serum globulin measurementon 08-15-2024 Globulin (S) [Mass/Vol] 2.7 g/dL 2.2-4.2 [facility] Serum glucose measurement (m ass/volume)on 08-15-2024 Glucose [Mass/Vol] 125 mg/dL High 70-99 [facility] Serum or plasma alanine craig otransferase (ALT) measurementon 08-15-2024 ALT [Catalytic activity/Vol] 71 U/L High <47 [facility] Serum or plasma albumin megha urement (mass/volume)on 08-15-2024 Albumin [Mass/Vol] 4.0 g/dL 3.4-4.8 [facility] Serum or plasma albumin/glob ulin mass ratioon 08-15-2024 Albumin/Globulin [Mass ratio] 1.5 {ratio} 0.9-2.4 [facility] Serum or plasma alkaline sal sphatase measurementon 08-15-2024 ALP [Catalytic activity/Vol] 364 U/L High 40-129 [facility] Serum or plasma calcium megha urement (mass/volume)on 08-15-2024 Calcium [Mass/Vol] 9.9 mg/dL 7.6-11.0 [facility] Serum or plasma urea nitroge n measurement (mass/volume)on 08-15-2024 Urea nitrogen [Mass/Vol] 27 mg/dL High 4-19 [facility] Sodium levelon 08-15-2024 Sodium [Moles/Vol] 139 mmol/L 133-145 [facility] Total proteinon 08-15-2024 Protein [Mass/Vol] 6.6 g/dL 5.9-8.4 [facility] White blood cell (WBC) count on 08-15-2024 WBC (Bld) [#/Vol] 4.5 10*3/uL 4.4-11.0 [facility] L501.5101on 08-14-2024 GGTP 156 IU/L Abnormal 0-65 [facility] Comment on above: Order Comment: Test( s) 250677-Ijtzdtawtm (FK506), Bloodwas developed and its performance characteristicsdetermined by [facility]. It has not been cleared or approvedby the Food and Drug Administration. Result Comment: Perf ormed at: [facility] [address] [id number] Director: Sergio Machado MD, Phone: [phone] at: [facility] [address] [id number] Director: Red Graham PhD, Phone: [phone] Performed By: #### L 2679.9184, [id number], L501.2300, L3380.1000, L501.5200, L501.5101 ####[facility] [address] [place], [address] Tacrolimus (Prograf)on 08-14 Tacrolimus (Bld) [Mass/Vol] 7.2 ng/mL Normal 5.0-20.0 [facility] Comment on above: Order Comment: Test( s) 218166-Yfqsdwqfvf (FK506), Bloodwas developed and its performance characteristicsdetermined by [facility]. It has not been cleared or approvedby the Food and Drug Administration. Result Comment: Ubaldog et steady state trough concentration forTacrolimus varies based on type of organ transplantimmunosuppressive protocol and other patient specificfactors. Tacrolimus trough concentrations should beinterpreted in conjunction with clinical assessmentsof rejection and tolerability. Values obtained withdifferent assay methods cannot be used interchangeablydue to differences in assay methods and cross-reactivtywith metabolites, nor should correction factors beapplied. Therefore, consistent use of one assay forindividual patients is recommended.Detection Limit = 0.5 ng/mLPerformed by LC-MS/MS technology. Performed By: #### L 3410.9992, L501.4700, L501.2300, L3380.1000, L501.5200, L501.5101 ####[facility] [address] [place], [address] Carcinoembryonic Antigenon 0 08-13-2024 CEA 1.7 ng/mL Normal 0.0-4.7 [facility] Comment on above: Result Comment: Nons mokers <3.9 Smokers <5.6[employer] Electrochemiluminescence Immunoassay(ECLIA)Values obtained with different assay methods or kitscannot be used interchangeably. Results cannot beinterpreted as absolute evidence of the presence orabsence of malignant disease.Performed at: [employer] [id number] Director: Red Graham PhD, Phone: [phone] Performed By: #### L 503.6030, L3100.2300, L100.9950, L503.6550, L503.0106, L500.4050, L100.0100 ####[facility] [address] [place], [place], [address] CBC W/Diff, Automatedon - PATH REV Reviewed Normal [facility] Comment on above: Result Comment: SEE REPORT IN PATIENT'S EMR AMENDED REPORT 08/12/24 1553 PATH REV previously reported as: June Performed By: #### L 3380.1000, L501.5101, L501.5200, L500.4050, L501.2300, L501.4700, L100.0100 ####[facility] [address] [place], [address] Bilirubin, Directon 08-12-19 25 Bilirubin.direct [Mass/Vol] 0.18 mg/dL Normal 0.00-0.30 [facility] Comment on above: Performed By: #### L 3410.9992, L501.4700, L501.2300, L3380.1000, L501.5200, L501.5101 ####[facility] [address] [place], [address] CBC W/Diff, Automatedon -03 03-2024 Absolute Lymph 0.94 X10 3/uL Normal 0.83-4.51 [facility] Comment on above: Order Comment: CBCD AND CMP RESULTS ALSO GO TO [facility] Performed By: #### L 503.6030, L3100.2300, L100.9950, L503.6550, L503.0106, L500.4050, L100.0100 ####[facility] [address] [place], [address] Absolute Neut 2.6 X10 3/uL Normal 2.0-7.7 [facility] Comment on above: Order Comment: CBCD AND CMP RESULTS ALSO GO TO [facility] Performed By: #### L 503.6030, L3100.2300, L100.9950, L503.6550, L503.0106, L500.4050, L100.0100 ####[facility] [address] [place], [address] Basophils/100 WBC (Bld) 1.9 % High 0-1 [facility] Comment on above: Order Comment: CBCD AND CMP RESULTS ALSO GO TO [facility] Performed By: #### L 503.6030, L3100.2300, L100.9950, L503.6550, L503.0106, L500.4050, L100.0100 ####[facility] [address] [place], [address] Eosinophils/100 WBC (Bld) 1.7 % Normal 0-5 [facility] Comment on above: Order Comment: CBCD AND CMP RESULTS ALSO GO TO [facility] Performed By: #### L 503.6030, L3100.2300, L100.9950, L503.6550, L503.0106, L500.4050, L100.0100 ####[facility] [address] [place], [address] Erythrocyte distribution width (RBC) [Ratio] 16.6 % High 11.6-14.6 [facility] Comment on above: Order Comment: CBCD AND CMP RESULTS ALSO GO TO [facility] Performed By: #### L 503.6030, L3100.2300, L100.9950, L503.6550, L503.0106, L500.4050, L100.0100 ####[facility] [address] [facility] [place], [address]( Hematocrit (Bld) [Volume fraction] 33.4 % Low 40-54 [facility] Comment on above: Order Comment: CBCD AND CMP RESULTS ALSO GO TO [facility] Performed By: #### L 503.6030, L3100.2300, L100.9950, L503.6550, L503.0106, L500.4050, L100.0100 ####[facility] [address] [facility] [place], [address] Hemoglobin (Bld) [Mass/Vol] 10.6 g/dL Low 13.0-16.5 [facility] Comment on above: Order Comment: CBCD AND CMP RESULTS ALSO GO TO [facility] Performed By: #### L 503.6030, L3100.2300, L100.9950, L503.6550, L503.0106, L500.4050, L100.0100 ####[facility] [address] [facility] [place], [address] IG% 2.200 High 0.0-0.9 [facility] Comment on above: Order Comment: CBCD AND CMP RESULTS ALSO GO TO [facility] Result Comment: IG% - Immature Granulocytes (promyelocytes, myelocytes andmetamyelocytes) > 1% indicates that a LEFT SHIFT is Present. Performed By: #### L 503.6030, L3100.2300, L100.9950, L503.6550, L503.0106, L500.4050, L100.0100 ####[facility] [address] [place], [address] Lymphocytes/100 WBC (Bld) 22.7 % Normal 19-41 [facility] Comment on above: Order Comment: CBCD AND CMP RESULTS ALSO GO TO [facility] Performed By: #### L 503.6030, L3100.2300, L100.9950, L503.6550, L503.0106, L500.4050, L100.0100 ####[facility] [address] [facility] [place], [address] MCH (RBC) [Entitic mass] 31.5 pg Normal 27.0-32.0 [facility] Comment on above: Order Comment: CBCD AND CMP RESULTS ALSO GO [facility] Performed By: #### L 503.6030, L3100.2300, L100.9950, L503.6550, L503.0106, L500.4050, L100.0100 ####[facility] [address] [place], [address] MCHC (RBC) [Mass/Vol] 31.7 g/dL Low 32-36 [facility] Comment on above: Order Comment: CBCD AND CMP RESULTS ALSO GO [facility] Performed By: #### L 503.6030, L3100.2300, L100.9950, L503.6550, L503.0106, L500.4050, L100.0100 ####[facility] [address] [place], [address] MCV (RBC) [Entitic vol] 99.1 fL High 80-94 [facility] Comment on above: Order Comment: CBCD AND CMP RESULTS ALSO GO [facility] Performed By: #### L 503.6030, L3100.2300, L100.9950, L503.6550, L503.0106, L500.4050, L100.0100 ####[facility] [address] [place], [address] Monocytes/100 WBC (Bld) 9.4 % Normal 0-10 [facility] Comment on above: Order Comment: CBCD AND CMP RESULTS ALSO GO [facility] Performed By: #### L 503.6030, L3100.2300, L100.9950, L503.6550, L503.0106, L500.4050, L100.0100 ####[facility] [address] [place], [address] Neutrophils/100 WBC (Bld) 62.1 % Normal 47-70 [facility] Comment on above: Order Comment: CBCD AND CMP RESULTS ALSO GO [facility] Performed By: #### L 503.6030, L3100.2300, L100.9950, L503.6550, L503.0106, L500.4050, L100.0100 ####[facility] [address] [place], [address] Nucleated RBC (Bld) [#/Vol] 0 10*3/uL Normal 0-5 [facility] Comment on above: Order Comment: CBCD AND CMP RESULTS ALSO GO [facility] Performed By: #### L 503.6030, L3100.2300, L100.9950, L503.6550, L503.0106, L500.4050, L100.0100 ####[facility] [address] [place], [address] Platelet mean volume (Bld) [Entitic vol] 10.2 fL Normal 6.2-12.0 [facility] Comment on above: Order Comment: CBCD AND CMP RESULTS ALSO GO [facility] Performed By: #### L 503.6030, L3100.2300, L100.9950, L503.6550, L503.0106, L500.4050, L100.0100 ####[facility] [address] [place], [address] Platelets (Bld) [#/Vol] 490 10*3/uL High 150-450 [facility] Comment on above: Order Comment: CBCD AND CMP RESULTS ALSO GO [facility] Performed By: #### L 503.6030, L3100.2300, L100.9950, L503.6550, L503.0106, L500.4050, L100.0100 ####[facility] [address] [place], [address] RBC (Bld) [#/Vol] 3.37 10*6/uL Low 4.6-6.2 [facility] Comment on above: Order Comment: CBCD AND CMP RESULTS ALSO GO [facility] Performed By: #### L 503.6030, L3100.2300, L100.9950, L503.6550, L503.0106, L500.4050, L100.0100 ####[facility] [address] [place], [address] RDW SD 60.8 fl High 35.1-43.9 [facility] Comment on above: Order Comment: CBCD AND CMP RESULTS ALSO GO [facility] Performed By: #### L 503.6030, L3100.2300, L100.9950, L503.6550, L503.0106, L500.4050, L100.0100 ####[facility] [address] [place], [address] WBC (Bld) [#/Vol] 4.1 10*3/uL Low 4.4-11.0 [facility] Comment on above: Order Comment: CBCD AND CMP RESULTS ALSO GO [facility] Performed By: #### L 503.6030, L3100.2300, L100.9950, L503.6550, L503.0106, L500.4050, L100.0100 ####[facility] [address] [place], [address] Comprehensive Metabolic Prof ilon 08-11-2024 Albumin [Mass/Vol] 4.0 g/dL Normal 3.4-4.8 [facility] Comment on above: Order Comment: CBCD AND CMP RESULTS ALSO GO Performed By: #### L 503.6030, L3100.2300, L100.9950, L503.6550, L503.0106, L500.4050, L100.0100 ####[facility] [address] [place], [address] Albumin/Globulin [Mass ratio] 1.4 {ratio} Normal 0.9-2.4 [facility] Comment on above: Order Comment: CBCD AND CMP RESULTS ALSO GO Performed By: #### L 503.6030, L3100.2300, L100.9950, L503.6550, L503.0106, L500.4050, L100.0100 ####[facility] [address] [place], [address] ALK PHOS 321 U/L High 40-129 [facility] Comment on above: Order Comment: CBCD AND CMP RESULTS ALSO GO Performed By: #### L 503.6030, L3100.2300, L100.9950, L503.6550, L503.0106, L500.4050, L100.0100 ####[facility] [address] [place], [address] ALT [Catalytic activity/Vol] 58 U/L High <=46 [facility] Comment on above: Order Comment: CBCD AND CMP RESULTS ALSO GO Performed By: #### L 503.6030, L3100.2300, L100.9950, L503.6550, L503.0106, L500.4050, L100.0100 ####[facility] [address] [place], [address] AST [Catalytic activity/Vol] 35 U/L Normal <=37 [facility] Comment on above: Order Comment: CBCD AND CMP RESULTS ALSO GO Performed By: #### L 503.6030, L3100.2300, L100.9950, L503.6550, L503.0106, L500.4050, L100.0100 ####[facility] [address] [place], [address] Bilirubin [Mass/Vol] 0.33 mg/dL Normal 0.00-1.30 [facility] Comment on above: Order Comment: CBCD AND CMP RESULTS ALSO GO Performed By: #### L 503.6030, L3100.2300, L100.9950, L503.6550, L503.0106, L500.4050, L100.0100 ####[facility] [address] [place], [address] BUN/CRE 26.2 RATIO High 10-20 [facility] Comment on above: Order Comment: CBCD AND CMP RESULTS ALSO GO Performed By: #### L 503.6030, L3100.2300, L100.9950, L503.6550, L503.0106, L500.4050, L100.0100 ####[facility] [address] [place], [address] Calcium [Mass/Vol] 9.5 mg/dL Normal 7.6-11.0 [facility] Comment on above: Order Comment: CBCD AND CMP RESULTS ALSO GO Performed By: #### L 503.6030, L3100.2300, L100.9950, L503.6550, L503.0106, L500.4050, L100.0100 ####[facility] [address] [place], [address] Chloride [Moles/Vol] 103 mmol/L Normal 98-108 [facility] Comment on above: Order Comment: CBCD AND CMP RESULTS ALSO GO Performed By: #### L 503.6030, L3100.2300, L100.9950, L503.6550, L503.0106, L500.4050, L100.0100 ####[facility] [address] [place], [address] CO2 [Moles/Vol] 25.5 mmol/L Normal 21.0-32.0 [facility] Comment on above: Order Comment: CBCD AND CMP RESULTS ALSO GO Performed By: #### L 503.6030, L3100.2300, L100.9950, L503.6550, L503.0106, L500.4050, L100.0100 ####[facility] [address] [place], [address] Creatinine [Mass/Vol] 0.85 mg/dL Normal 0.70-1.20 [facility] Comment on above: Order Comment: CBCD AND CMP RESULTS ALSO GO Performed By: #### L 503.6030, L3100.2300, L100.9950, L503.6550, L503.0106, L500.4050, L100.0100 ####[facility] [address] [place], [address] GAP 11 Normal 5-15 [facility] Comment on above: Order Comment: CBCD AND CMP RESULTS ALSO GO Performed By: #### L 503.6030, L3100.2300, L100.9950, L503.6550, L503.0106, L500.4050, L100.0100 ####[facility] [address] [place], [address] GFR/1.73 sq M.predicted among non-blacks MDRD (S/P/Bld) [Vol rate/Area] 99 mL/min/{1.73_m2} Normal >60 [facility] Comment on above: Order Comment: CBCD AND CMP RESULTS ALSO GO Result Comment: mL/m in/1.73m2 CKD-EPI Creatinine Equation (2020) Performed By: #### L 503.6030, L3100.2300, L100.9950, L503.6550, L503.0106, L500.4050, L100.0100 ####[facility] [address] [place], [address] Globulin (S) [Mass/Vol] 2.8 g/dL Normal 2.2-4.2 [facility] Comment on above: Order Comment: CBCD AND CMP RESULTS ALSO GO Performed By: #### L 503.6030, L3100.2300, L100.9950, L503.6550, L503.0106, L500.4050, L100.0100 ####[facility] [address] [place], [address] Glucose [Mass/Vol] 88 mg/dL Normal 70-99 [facility] Comment on above: Order Comment: CBCD AND CMP RESULTS ALSO GO Performed By: #### L 503.6030, L3100.2300, L100.9950, L503.6550, L503.0106, L500.4050, L100.0100 ####[facility] [address] [place], [address] Potassium [Moles/Vol] 4.3 mmol/L Normal 3.3-5.1 [facility] Comment on above: Order Comment: CBCD AND CMP RESULTS ALSO GO Performed By: #### L 503.6030, L3100.2300, L100.9950, L503.6550, L503.0106, L500.4050, L100.0100 ####[facility] [address] [place], [address] Sodium [Moles/Vol] 140 mmol/L Normal 133-145 [facility] Comment on above: Order Comment: CBCD AND CMP RESULTS ALSO GO Performed By: #### L 503.6030, L3100.2300, L100.9950, L503.6550, L503.0106, L500.4050, L100.0100 ####[facility] [address] [place], [address] T PROT 6.7 g/dL Normal 5.9-8.4 [facility] Comment on above: Order Comment: CBCD AND CMP RESULTS ALSO GO Performed By: #### L 503.6030, L3100.2300, L100.9950, L503.6550, L503.0106, L500.4050, L100.0100 ####[facility] [address] [facility] [place], [address] Urea nitrogen [Mass/Vol] 22 mg/dL High 4-19 [facility] Comment on above: Order Comment: CBCD AND CMP RESULTS ALSO GO Performed By: #### L 503.6030, L3100.2300, L100.9950, L503.6550, L503.0106, L500.4050, L100.0100 ####[facility] [address] [place], [address] Gamma glutamyl transferase ( GGT) measurementon 08-11-2024 Amylase [Catalytic activity/Vol] 156 U/L High 0-65 [facility] Comment on above: Performed at: - [address] [id number] Director: Sergio Machado MD, Phone: [phone] at: - [facility] [address] [id number] Director: Red Graham PhD, Phone: [phone] Iron measurement (mass/mass) Ordered By: Robe Zavala on 08-11-2024 Iron (Unsp spec) [Mass/Mass] 47 ug/dL Low 65-175 [facility] Iron+Iron Binding Capacityon 08-11-2024 Iron [Mass/Vol] 47 ug/dL Low 65-175 [facility] Comment on above: Order Comment: CBCD AND CMP RESULTS ALSO GO Performed By: #### L 503.6030, L3100.2300, L100.9950, L503.6550, L503.0106, L500.4050, L100.0100 ####[facility] [address] [place], [address] IRON SATURATION 18.0 Normal 9-55 [facility] Comment on above: Order Comment: CBCD AND CMP RESULTS ALSO GO Performed By: #### L 503.6030, L3100.2300, L100.9950, L503.6550, L503.0106, L500.4050, L100.0100 ####[facility] [address] [place], [address] TIBC 264 ug/dL Normal 250-450 [facility] Comment on above: Order Comment: CBCD AND CMP RESULTS ALSO GO Performed By: #### L 503.6030, L3100.2300, L100.9950, L503.6550, L503.0106, L500.4050, L100.0100 ####[facility] [address] [place], [address] UIBC 217 ug/dL Low 228-428 [facility] Comment on above: Order Comment: CBCD AND CMP RESULTS ALSO GO Performed By: #### L 503.6030, L3100.2300, L100.9950, L503.6550, L503.0106, L500.4050, L100.0100 ####[facility] [address] [place], [address] Magnesiumon 08-11-2024 Magnesium [Mass/Vol] 1.7 mg/dL Normal 1.5-2.2 [facility] Comment on above: Performed By: #### L 3410.9992, L501.4700, L501.2300, L3380.1000, L501.5200, L501.5101 ####[facility] [address] [place], [place], [id number] No Panel InformationOrdered By: Robe Zavala on 08-11-2024 Unsaturated Iron Binding Capacity 217 ug/dL Low 228-428 [facility] Phosphoruson 08-11-2024 Phosphate [Mass/Vol] 3.4 mg/dL Normal 2.7-4.5 [facility] Comment on above: Performed By: #### L 3410.9992, L501.4700, L501.2300, L3380.1000, L501.5200, L501.5101 ####[facility] [address] [place], [place], [address] Retic Panelon 08-11-2024 IM RET FRACTION 14.80 Normal 3.00-15.90 [facility] Comment on above: Order Comment: CBCD AND CMP RESULTS ALSO GO [facility] Performed By: #### L 503.6030, L3100.2300, L100.9950, L503.6550, L503.0106, L500.4050, L100.0100 ####[facility] [address] [place], [place], [id number] RET-HE 35.3 pg High 30-35 [facility] Comment on above: Order Comment: CBCD AND CMP RESULTS ALSO GO [facility] Performed By: #### L 503.6030, L3100.2300, L100.9950, L503.6550, L503.0106, L500.4050, L100.0100 ####[facility] [address] [place], [place], [id number] Retic Count 1.42 Normal 0.5-1.5 [facility] Comment on above: Order Comment: CBCD AND CMP RESULTS ALSO GO [facility] Performed By: #### L 503.6030, L3100.2300, L100.9950, L503.6550, L503.0106, L500.4050, L100.0100 ####[facility] [address] [place], [address] Reticulocyte hemoglobin equi valent (RET-He) measurementOrdered By: Robe Zavala on 08-11-2024 Hemoglobin (Reticulocytes) [Entitic mass] 35.3 pg High 30-35 [facility] Reticulocytes Auto (Bld) [#/ Vol]Ordered By: Robe Zavala on 08-11-2024 Reticulocytes/100 RBC (Bld) 1.42 % 0.5-1.5 [facility] Serum or plasma carcinoembry onic antigen measurement (mass/volume)Ordered By: Robe Zavala on 08-11-2024 Carcinoembryonic Ag [Mass/Vol] 1.7 ng/mL 0.0-4.7 [facility] Comment on above: Nonsmokers <3.9 Smok ers <5.6[employer] Electrochemiluminescence Immunoassay(ECLIA)Values obtained with different assay methods or kitscannot be used interchangeably. Results cannot beinterpreted as absolute evidence of the presence orabsence of malignant disease.Performed at: [facility] [id number] Director: Red Graham PhD, Phone: [phone] Serum or plasma ferritin timmy surement (mass/volume)Ordered By: Robe Zavala on 08-11-2024 Ferritin [Mass/Vol] 226 ng/mL Normal 37-417 [facility] Comment on above: Order Comment: CBCD AND CMP RESULTS ALSO GO Performed By: #### L 503.6030, L3100.2300, L100.9950, L503.6550, L503.0106, L500.4050, L100.0100 ####[facility] [address] [place], [place], [id number] Serum or plasma iron saturat ion measurement (mass fraction)Ordered By: Robe Zavala on 08-11-2024 Iron saturation [Mass fraction] 18.0 % 9-55 [facility] Vitamin B12 ser/plasOrdered By: Robe Zavala on 08-11-2024 Cobalamin (Vitamin B12) [Mass/Vol] 1699 pg/mL High 180-914 [facility] Comment on above: Order Comment: CBCD AND CMP RESULTS ALSO GO Performed By: #### L 503.6030, L3100.2300, L100.9950, L503.6550, L503.0106, L500.4050, L100.0100 ####[facility] [address] [place], [address] ALLOSCREEN RECIPIENT (POST T X PRA)on 08-09-2024 AB SPECIFICITY CLASS COMMENT Antibody Specificity testing performed by [employer]. cPRA calculation based on identification of HLA antibody specificities at [facility]FI >2000 and/or presence of CREG antibodies. Normal [facility] Comment on above: Result Comment: Some of the reagents used for testing in the Clinical Histocompatibility Laboratory have yet to be approved by the FDA. Our certification by CLIA to perform high complexity tests allows us to use these reagents in the context of a stringent QCprogram, and obviates the need for FDA approval.Testing performed by the [facility] Clinical Histocompatibility Laboratory. [facility] number: [id number]. CLIA number: [id number], Director: Urban Millard, PhD, F([facility]). Performed By: #### A LLOR ####[facility] (DEFAULT)[address] [place] [address] ANTIBODY SPECIFICITY INTERPRETATION Detected Normal [facility] Comment on above: Performed By: #### A LLOR ####[facility] (DEFAULT)[address] [place] [address], [place] [address] CLASS I SPECIFICITIES Not detected Normal [facility] Comment on above: Performed By: #### A LLOR ####[facility] (DEFAULT)[address] [place] [address] CLASS II SPECIFICITIES Not detected Normal [facility] Comment on above: Performed By: #### A LLOR ####[facility] (DEFAULT)[address] [place] [address] cPRA 0 % Normal 0 [facility] Comment on above: Performed By: #### A LLOR ####[facility] (DEFAULT)[address] [place] [address] CALCIUMon 08-09-2024 Calcium [Mass/Vol] 8.7 mg/dL 8.6 - 10. 5 mg/dL [facility] Calcium [Mass/Vol] 8.7 mg/dL Normal 8.6-10.5 [facility] Comment on above: Performed By: #### I PB, HFP, CHM7, MGO, CA ####[facility] (DEFAULT)[address] [place] [address] CBC AND ELECTRONIC DIFFon Erythrocyte distribution width (RBC) [Ratio] 16.4 % High 10.9 - 14.3 % [facility] Hematocrit (Bld) [Volume fraction] 31.6 % Low 39.6 - 48.8 % [facility] Hemoglobin (Bld) [Mass/Vol] 9.9 g/dL Low 13.4 - 16.8 g/dL [facility] MCH (RBC) [Entitic mass] 30.9 pg 26.1 - 33.3 pg [facility] MCHC (RBC) [Mass/Vol] 31.3 g/dL Low 31.9 - 36.5 g/dL [facility] MCV (RBC) [Entitic vol] 98.8 fL High 79.0 - 94.5 fL [facility] Platelet mean volume (Bld) [Entitic vol] 10.5 fL 8.7 - 12.3 fL [facility] Platelets (Bld) [#/Vol] 450 10*3/uL High 146 - 337 K/uL [facility] RBC (Bld) [#/Vol] 3.2 10*6/uL Low [facility] WBC (Bld) [#/Vol] 4.87 10*3/uL 3.73 - 10. 10 K/uL [facility] Hematocrit (Bld) [Volume fraction] 31.6 % Low 39.6-48.8 [facility] Comment on above: Performed By: #### L [id number] ####[facility] (DEFAULT)[address] [place] [address] Hemoglobin (Bld) [Mass/Vol] 9.9 g/dL Low 13.4-16.8 [facility] Comment on above: Performed By: #### L [id number] ####[facility] (DEFAULT)[address] [place] [address], [place] [address] MCV (RBC) [Entitic vol] 98.8 fL High 79.0-94.5 [facility] Comment on above: Performed By: #### L [id number] ####[facility] (DEFAULT)[address] [place] [address] Mean Cell Hgb 30.9 pg Normal 26.1-33.3 [facility] Comment on above: Performed By: #### L [id number] ####[facility] (DEFAULT)[address] [place] [address] Mean Cell Hgb Conc 31.3 g/dL Low 31.9-36.5 [facility] Comment on above: Performed By: #### L [id number] ####[facility] (DEFAULT)[address] [place] [address] Platelet mean volume (Bld) [Entitic vol] 10.5 fL Normal 8.7-12.3 [facility] Comment on above: Performed By: #### L [id number] ####[facility] (DEFAULT)[address] [place] [address], [place] [address] Platelets (Bld) [#/Vol] 450 10*3/uL High 146-337 [facility] Comment on above: Performed By: #### L [id number] ####[facility] (DEFAULT)[address] [place] [address] [place] [address] RBC (Bld) [#/Vol] 3.20 10*6/uL Low 4.38-5.83 [facility] Comment on above: Performed By: #### L [id number] ####[facility] (DEFAULT)[address] [place] [address] RBC Distribution 16.4 % High 10.9-14.3 [facility] Comment on above: Performed By: #### L [id number] ####[facility] (DEFAULT)[address] [place] [address] WBC (Bld) [#/Vol] 4.87 10*3/uL Normal 3.73-10.10 [facility] Comment on above: Performed By: #### L [id number] ####[facility] (DEFAULT)[address] [place] [address] CHEM 7 (LYTES,BUN,CREA,GLUC) on 08-09-2024 Anion gap [Moles/Vol] 12 mmol/L 7 - 17 mmol/L [facility] Chloride [Moles/Vol] 105 mmol/L 98 - 10 8 mmol/L [facility] CO2 [Moles/Vol] 25 mmol/L 21 - 31 mmol/L [facility] Creatinine [Mass/Vol] 0.69 mg/dL Low 0.70 - 1.30 mg/dL [facility] eGFR, CKD-EPI, Male - PINF [facility] Comment on above: Reported eGFR is bas ed on the CKD-EPI 2020 equation using creatinine, age, and sex. Glucose [Mass/Vol] 76 mg/dL 70 - 179 mg/dL [facility] Osmolality Calc [Osmolality] 293 [facility] Potassium [Moles/Vol] 4.4 mmol/L 3.5 - 5.0 mmol/L [facility] Sodium [Moles/Vol] 138 mmol/L 135 - 145 mmol/L [facility] Urea nitrogen [Mass/Vol] 25 mg/dL 7 - 25 mg/dL [facility] Urea nitrogen/Creatinine [Mass ratio] 36 mg/mg [facility] Anion gap [Moles/Vol] 12 mmol/L Normal 7-17 [facility] Comment on above: Performed By: #### I PB, HFP, CHM7, MGO, CA ####[facility] (DEFAULT)[address] [place] [address] Chloride [Moles/Vol] 105 mmol/L Normal 98-108 [facility] Comment on above: Performed By: #### I PB, HFP, CHM7, MGO, CA ####[facility] (DEFAULT)[address] [facility] [place] [address] CO2 [Moles/Vol] 25 mmol/L Normal 21-31 [facility] Comment on above: Performed By: #### I PB, HFP, CHM7, MGO, CA ####[facility] (DEFAULT)[address] [place] [address] Creatinine [Mass/Vol] 0.69 mg/dL Low 0.70-1.30 [facility] Comment on above: Performed By: #### I PB, HFP, CHM7, MGO, CA ####[facility] (DEFAULT)[address] [place] [address] eGFR, CKD-EPI, Male > Normal >=60 [facility] Comment on above: Result Comment: Repo rted eGFR is based on the CKD-EPI 2020 equation using creatinine, age, and sex. Performed By: #### I PB, HFP, CHM7, MGO, CA ####[facility] (DEFAULT)[address] [facility] [place] [address] Glucose [Mass/Vol] 76 mg/dL Normal Nonfastin -179 mg/dL; Fastin-99 [facility] Comment on above: Performed By: #### I PB, HFP, CHM7, MGO, CA ####[facility] (DEFAULT)[address] [place] [address] Osmolality [Osmolality] 293 mosm/kg Normal 278-305 [facility] Comment on above: Performed By: #### I PB, HFP, CHM7, MGO, CA ####[facility] (DEFAULT)[address] [place] [address] Potassium [Moles/Vol] 4.4 mmol/L Normal 3.5-5.0 [facility] Comment on above: Performed By: #### I PB, HFP, CHM7, MGO, CA ####[facility] (DEFAULT)[address] [facility] [place] [address] Sodium [Moles/Vol] 138 mmol/L Normal 135-145 [facility] Comment on above: Performed By: #### I PB, HFP, CHM7, MGO, CA ####[facility] (DEFAULT)[address] [facility] [place] [address] Urea nitrogen [Mass/Vol] 25 mg/dL Normal 7-25 [facility] Comment on above: Performed By: #### I PB, HFP, CHM7, MGO, CA ####[facility] (DEFAULT)[address] [facility] [place] [address] Urea nitrogen/Creatinine [Mass ratio] 36 mg/mg Normal [facility] Comment on above: Performed By: #### I PB, HFP, CHM7, MGO, CA ####[facility] (DEFAULT)[address] [facility] [place] [place] [address] CT ABDOMINAL/RETROPERITONEAL /VISCERAL MASS BIOPSYon 08-09-2024 CT ABDOMINAL/RETROPERITO ALYSON/VISCERAL MASS BIOPSY Normal [facility] CT CHEST WITHOUT CONTRASTon 08-09-2024 CT CHEST WITHOUT CONTRAST Normal [facility] CT Chest WO contraston 08-09 IMPRESSION: No findings of thoracic metastatic disease. OLOGY EXAM: CT CHEST WITHO UT CONTRAST, 08/08/2024 17:49 PM CLINICAL INDICATIONS: rule out metastasis RELEVANT CLINICAL HISTORY: COMPARISON: CT CHEST (OUTSIDE IMAGE) September 30, 2022 TECHNIQUE: Standard CT scan of the chest was performed. CONTRAST: None FINDINGS: Lungs and Pleura: Mild areas of volume loss or scarring dependently. Small amount scarring in the right lung apex. No suspicious pulmonary nodules. Tracheobronchial tree: Widely patent centrally. Mediastinum/Terri: No mediastinal or hilar lymphadenopathy. Axilla and Supraclavicular Region: Normal thyroid gland. No axillary or supraclavicular adenopathy. Cardiovascular: Normal heart size. Punctate coronary artery calcifications. Common origin of the right brachiocephalic trunk and the left common carotid artery, a common anatomic variant. No pericardial effusion. Upper Abdomen: Surgical clips in the upper abdomen. Full evaluation of the abdomen performed with MRI on August 05, 2024. No new abnormalities. Bones and Soft Tissue: Normal Additional Findings: None. 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 RADIOLOGY Micha Reed M D, PhD - 08/09/2024 EXAM: CT CHEST WITHOUT CONTRAST, 08/08/2024 17:49 PM CLINICAL INDICATIONS: rule out metastasis RELEVANT CLINICAL HISTORY: COMPARISON: CT CHEST (OUTSIDE IMAGE) September 30, 2022 TECHNIQUE: Standard CT scan of the chest was performed. CONTRAST: None FINDINGS: Lungs and Pleura: Mild areas of volume loss or scarring dependently. Small amount scarring in the right lung apex. No suspicious pulmonary nodules. Tracheobronchial tree: Widely patent centrally. Mediastinum/Terri: No mediastinal or hilar lymphadenopathy. Axilla and Supraclavicular Region: Normal thyroid gland. No axillary or supraclavicular adenopathy. Cardiovascular: Normal heart size. Punctate coronary artery calcifications. Common origin of the right brachiocephalic trunk and the left common carotid artery, a common anatomic variant. No pericardial effusion. Upper Abdomen: Surgical clips in the upper abdomen. Full evaluation of the abdomen performed with MRI on August 05, 2024. No new abnormalities. Bones and Soft Tissue: Normal Additional Findings: None. 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 IMPRESSION IMPRESSION: No findings of thoracic metastatic disease. [facility] Chest WO contrastOrdered By: Micha Reed on 08-09-2024 [facility] Work Phone: CT Guidance for biopsy of Laurie dean 08-09-2024 IMPRESSION: CT-guided biopsy of a 2 cm oval mass in the left hemipelvis. Nestor Hernandez MD was in the room and participated during all [place] portions of this procedure. OLOGY EXAM: BIR CT ABDOMINAL/RETROPERITONEAL /VISCERAL MASS BIOPSY, 08/09/2024 15:17 PM CLINICAL HISTORY: left hemipelvic mass biopsy COMPARISON: August 05, 2024 CT OPERATORS: Nestor Hernandez MD PROCEDURE/TECHNIQUE: Consent: Written informed consent was obtained after explaining the procedure to the patient, including benefits and risks, and answering the patient's questions. Moderate Sedation: I performed Moderate Sedation, which included the presence of a nurse that assisted in monitoring the patient's level of consciousness and physiological status. After administration of Intravenous fentanyl and Versed, I spent 15 minutes of continuous [id number] time with the patient. Position: The patient was placed on the CT table in prone position, and initial axial images through the region of interest in the pelvis were obtained. A radiopaque marker was then placed, and the patient rescanned to confirm position. Preparation: Time out was performed. Measurements were made to a lesion in the left hemipelvis. The patient was prepped and draped in sterile fashion. Local anesthesia was provided using lidocaine 2 percent. Procedure: The 17-gauge introducer and coaxial 18-gauge core biopsy device was advanced into the targeted area using CT fluoroscopic guidance. Multiple core samples were taken. The specimens were placed in formalin solution and sent to Pathology for analysis. Manual compression was applied for hemostasis. Post-procedure: The patient tolerated the procedure well, with no immediate complications. RADIOLOGY Nestor Hernandez MD - 08/09/2024 EXAM: BIR CT ABDOMINAL/RETROPERITONEAL /VISCERAL MASS BIOPSY, 08/09/2024 15:17 PM CLINICAL HISTORY: left hemipelvic mass biopsy COMPARISON: August 05, 2024 CT OPERATORS: Nestor Hernandez MD PROCEDURE/TECHNIQUE: Consent: Written informed consent was obtained after explaining the procedure to the patient, including benefits and risks, and answering the patient's questions. Moderate Sedation: I performed Moderate Sedation, which included the presence of a nurse that assisted in monitoring the patient's level of consciousness and physiological status. After administration of Intravenous fentanyl and Versed, I spent 15 minutes of continuous [id number]-[id number] time with the patient. Position: The patient was placed on the CT table in prone position, and initial axial images through the region of interest in the pelvis were obtained. A radiopaque marker was then placed, and the patient rescanned to confirm position. Preparation: Time out was performed. Measurements were made to a lesion in the left hemipelvis. The patient was prepped and draped in sterile fashion. Local anesthesia was provided using lidocaine 2 percent. Procedure: The 17-gauge introducer and coaxial 18-gauge core biopsy device was advanced into the targeted area using CT fluoroscopic guidance. Multiple core samples were taken. The specimens were placed in formalin solution and sent to Pathology for analysis. Manual compression was applied for hemostasis. Post-procedure: The patient tolerated the procedure well, with no immediate complications. IMPRESSION IMPRESSION: CT-guided biopsy of a 2 cm oval mass in the left hemipelvis. Nestor Hernandez MD was in the room and participated during all [place] portions of this procedure. [facility] Radiology Study observation (narrative) [facility] GENERAL PROCEDUREon 08-10-19 25 Nestor Hernandez MD - 08/09/2024 3:08 PM EDT BODY INTERVENTIONAL RADIOLOGY PROCEDURE NOTE PROCEDURE INDICATION: Pelvic mass PROCEDURE PERFORMED: CT guided needle biopsy. FINDINGS/TARGET: Left perirectal mass SPECIMEN: 18 gauge core needle biopsy passes x 5 DISPOSITION OF SPECIMEN(S): Pathology PLAN: Patient to recovery. Nestor Hernandez MD 08/09/2024 3:08 PM ALUMINUM POLISHER(S): Nestor Hernandez MD. CONSENT: Informed consent was obtained prior to the procedure after discussion of the risks, benefits, and alternatives of the procedure, and expected procedure outcomes were discussed with the patient and/or front desk representative. The consent document was placed in chart. DID THIS PROCEDURE REQUIRE A UNIVERSAL PROTOCOL?: Yes. [place] Protocol is required. Preprocedure verification is complete. Patient verified and consents confirmed, procedure sites identified and marked as appropriate, timeout called before the start of the procedure. SEDATION: Moderate sedation and local anesthetic ESTIMATED BLOOD LOSS: Less than 1 mL COMPLICATIONS: None immediate ADDITIONAL: Please refer to the report generated in the IMAGING section of the electronic medical record for additional procedure details. Thank you for allowing Interventional Radiology to participate in this patient's [facility] Radiology Study observation (narrative) [facility] HEPATIC FUNCTION PANELon Albumin [Mass/Vol] 3.5 g/dL 3.5 - 5.0 g/dL [facility] ALP [Catalytic activity/Vol] 241 U/L High 32 - 126 U/L [facility] ALT [Catalytic activity/Vol] 39 U/L 10 - 52 U/L [facility] AST [Catalytic activity/Vol] 31 U/L 10 - 39 U/L [facility] Bilirubin [Mass/Vol] 0.2 mg/dL NINF - 1.5 mg/dL [facility] Bilirubin.direct [Mass/Vol] 0.1 mg/dL NINF - 0.3 mg/dL [facility] Protein [Mass/Vol] 6.2 g/dL Low 6.4 - 8.3 g/dL [facility] Albumin [Mass/Vol] 3.5 g/dL Normal 3.5-5.0 [facility] Comment on above: Performed By: #### I PB, HFP, CHM7, MGO, CA ####[facility] (DEFAULT)[address] [place] [address] ALP [Catalytic activity/Vol] 241 U/L High 32-126 [facility] Comment on above: Performed By: #### I PB, HFP, CHM7, MGO, CA ####[facility] (DEFAULT)[address] [place] [address] ALT [Catalytic activity/Vol] 39 U/L Normal 10-52 [facility] Comment on above: Performed By: #### I PB, HFP, CHM7, MGO, CA ####[facility] (DEFAULT)[address] [place] [address] AST [Catalytic activity/Vol] 31 U/L Normal 10-39 [facility] Comment on above: Performed By: #### I PB, HFP, CHM7, MGO, CA ####[facility] (DEFAULT)[address] [place] [address] Bilirubin [Mass/Vol] 0.2 mg/dL Normal <1.5 [facility] Comment on above: Performed By: #### I PB, HFP, CHM7, MGO, CA ####[facility] (DEFAULT)[address] [place] [address] Bilirubin.indirect [Mass/Vol] 0.1 mg/dL Normal <0.3 [facility] Comment on above: Performed By: #### I PB, HFP, CHM7, MGO, CA ####[facility] (DEFAULT)[address] [facility] [place] [address] Protein [Mass/Vol] 6.2 g/dL Low 6.4-8.3 [facility] Comment on above: Performed By: #### I PB, HFP, CHM7, MGO, CA ####[facility] (DEFAULT)[address] [facility] [place] [place] [address] MAGNESIUMon 08-09-2024 Magnesium [Mass/Vol] 1.6 mg/dL 1.6 - 2 .6 mg/dL [facility] Magnesium [Mass/Vol] 1.6 mg/dL Normal 1.6-2.6 [facility] Comment on above: Performed By: #### I PB, HFP, CHM7, MGO, CA ####[facility] (DEFAULT)[address] [place] [address] MANUAL DIFFon 08-09-2024 Band form neutrophils/100 WBC (Bld) 0 % [facility] Basophils (Bld) [#/Vol] 0.08 10*3/uL 0.00 - 0.09 K/uL [facility] Basophils/100 WBC (Bld) 1.7 % [facility] Nabila cells LM Ql (Bld) Present Abnormal (none) [facility] Differential cell count method Nom (Bld) Manual Differential [facility] Eosinophils (Bld) [#/Vol] 0.17 10*3/uL [facility] Eosinophils/100 WBC (Bld) 3.4 % [facility] Lymphocytes (Bld) [#/Vol] 1.26 10*3/uL 0.83 - 3.57 K/uL [facility] Lymphocytes/100 WBC (Bld) 25.9 % [facility] Monocytes (Bld) [#/Vol] 0.55 10*3/uL 0.24 - 0.93 K/uL [facility] Monocytes/100 WBC (Bld) 11.2 % [facility] Neutrophils (Bld) [#/Vol] 2.81 10*3/uL 1.57 - 6.19 K/uL [facility] Ovalocytes LM Ql (Bld) Present Abnormal (none) [facility] Platelet clump LM Ql (Bld) Present Abnormal (none) [facility] Platelets Estimate (Bld) [#/Vol] Automated platelet count confirmed by manual slide review [facility] RBC morphology finding Nom (Bld) RBC INDICES CONFIRMED WITH MANUAL SLIDE REVIEW [facility] Segmented neutrophils/100 WBC (Bld) 57.8 % [facility] No Panel Informationon 08-09 Interpretation and review of laboratory results Abnormal [facility] Interpretation and review of laboratory results Abnormal [facility] Interpretation and review of laboratory results Normal [facility] PHOSPHATE, INORGANICon 08-09 Phosphate [Mass/Vol] 4.1 mg/dL 2.2 - 4 .6 mg/dL [facility] Phosphorous 4.1 mg/dL Normal 2.2-4.6 [facility] Comment on above: Performed By: #### I PB, HFP, CHM7, MGO, CA ####[facility] (DEFAULT)[address] [place] [address] SURG PATH REQUESTon 08-10-19 Case Report Normal [facility] Comment on above: Result Comment: Surg ical Pathology Report Case: [id number] Provider: Nestor Hernandez MD Collected: 08/09/2024 03:06 PMOrdering Location[facility] Received: 08/09/2024 03:39 PMPathologist: Alexander Chinchilla MD, PhDSpecimen: SURG PATH, Left posterior hemipelvic mass Performed By: #### S URGP ####[facility] (DEFAULT)[address] [place] [id number] Clinical History Reason For Exam: Lef t hemipelvic mass biopsy. Clinical History: Cancer of sigmoid colon (per chart). Normal [facility] Comment on above: Performed By: #### S URGP ####[facility] (DEFAULT)[address] [place] [address] Gross Description Normal [facility] Comment on above: Result Comment: The specimen is received in one properly labeled container with the patient's name and accession number.A. The specimen is designated left posterior hemipelvic mass and consists of four delicate pale swanson soft tissue cores admixed with fragments of clotted blood. The cores average 0.1 cm in diameter and range in length from 0.3 cm to 0.6 cm. TE 2Lab Use Only: JobID [id number] for this case was: Noemy Lanieroya Performed By: #### S URGP ####[facility] (DEFAULT)[address] [place] [address] Microscopic Description [facility] Comment on above: Result Comment: A mi croscopic examination was performed.All controls show appropriate reactivity. All immunohistochemistry (IHC), in situ hybridization (MELA), and histochemical tests were developed by and are performed at the [facility] Clinical Laboratory, Histology and IHC Lab, [address] [place] [address]. All Immunofluorescent (IF) tests were developed by and are performed at the [facility] Clinical Laboratory, Renal Division, [address] [place] [address]. All tests reported here, except for PD-L1, have not been cleared by or approved by the [place] Food and Drug Administration (FDA). The laboratory is regulated under CLIA as qualified to perform high-complexity testing. The tests are used for clinical purposes. They should not be regarded as investigational or for research. Performed By: #### S URGP ####[facility] (DEFAULT)[address] [place] [address] Pathologic Diagnosis Normal [facility] Comment on above: Result Comment: A. L eft posterior hemipelvic mass, biopsy:Benign fibromuscular adipose tissue with hemosiderin, reactive stromal cells, and foreign-body giant cell reaction (see comment)Comment: The above findings are suggestive of biopsy from the wall of an organizing abscess. There is no evidence of carcinoma by cytokeratin AE1/3 immunostains performed on A1 and A2. at 1554 EDT Performed By: #### S URGP ####[facility] (DEFAULT)[address] [place] [address] Professional Interpretation Performed at: [facility] Comment on above: Result Comment: [facility] CLINICAL LABORATORYFor Immediate Release to Patient's [facility]? [id number] [id number] Performed By: #### S URGP ####[facility] (DEFAULT)[address] [place] [address] TACROLIMUS LEVEL, TROUGH (PA E DRUG LEVEL)on 08-09-2024 Tacrolimus (Bld) [Mass/Vol] 5.9 ng/mL Bone Marrow Transplant: 5.0-15.0 Kidney/Pancre at Transplant: 0 to 3 months: 8.0-10.0, 3 to 12 months: 6.0-8.0, >12 months: 4.0-6.0 [facility] Method performed is a chemiluminescent microparticle immunoasssay on the [employer] i2000. The range is based on experience at [facility] and users should be aware that target concentrations vary widely depending on concomitant therapy, time post-transplant, and desired degree of immunosuppression. [facility] Tacrolimus, Trough 5.9 ng/mL Normal Bone Veronique ow Transplant: 5.0-15.0 Kidney/Pancre at Transplant: 0 to 3 months: 8.0-10.0, 3 to 12 months: 6.0-8.0, >12 months: 4.0-6.0 [facility] Comment on above: Order Comment: Pleas e draw at specified interval PRIOR to dose. Do not hold dose to wait for level. Specimens batched twice per day, (M-F) and once per day weekendsMethod performed is a chemiluminescent microparticle immunoasssay on the [employer] Maintainer i2000.The range is based on experience at [facility] and users should be aware that target concentrations vary widely depending on concomitant therapy, time post-transplant, and desired degree of immunosuppression. Performed By: #### T ACRO ####[facility] (DEFAULT)[address] [place] [address] B HENSELAE/B FULLER IGG,IG 08-08-2024 B. henselae IgG IF (S) [Titer] <1:128 [facility] B. henselae IgM IF (S) [Titer] <1:20 [facility] B. fuller IgG IF (S) [Titer] <1:128 [facility] B. fuller IgM IF (S) [Titer] <1:20 [facility] Comment on above: ADDITIONAL INFORMATION This test was developed and its performance characteristics determined by [facility] in a manner consistent with CLIA requirements. This test has not been cleared or approved by the U.S. Food and Drug Administration. Test Performed by: [facility] [address] [place] [address] Jute Bag Clipper: Orlando Cruz Ph.D.; CLIA# [id number] [facility] BARTONELLA, DNA, PCR, BLOODo n 08-08-2024 Bartonella sp DNA JACKY+probe Ql (Bld) Negative Not Applicable [facility] Comment on above: ADDITIONAL INFORMATION This test was developed and its performance characteristics determined by [facility] in a manner consistent with CLIA requirements. This test has not been cleared or approved by the U.S. Food and Drug Administration. Test Performed by: [facility] [place] [address] Jute Bag Clipper: Orlando Cruz Ph.D.; CLIA# [id number] Specimen source Nom (Unsp spec) BLOOD [facility] CALCIUMon 08-08-2024 Calcium [Mass/Vol] 8.7 mg/dL 8.6 - 10. 5 mg/dL [facility] Calcium [Mass/Vol] 8.7 mg/dL Normal 8.6-10.5 [facility] Comment on above: Performed By: #### I PB, HFP, CHM7, MGO, CA ####[facility] (DEFAULT)[address] [place] [address] CBC AND ELECTRONIC DIFFon Basophils (Bld) [#/Vol] 0.08 10*3/uL 0.00 - 0.09 K/uL [facility] Basophils/100 WBC (Bld) 2 % [facility] Differential cell count method Nom (Bld) Electronic Differential [facility] Eosinophils (Bld) [#/Vol] 0.11 10*3/uL 0.00 - 0.48 K/uL [facility] Eosinophils/100 WBC (Bld) 2.7 % [facility] Erythrocyte distribution width (RBC) [Ratio] 16.6 % High 10.9 - 14.3 % [facility] Hematocrit (Bld) [Volume fraction] 32.1 % Low 39.6 - 48.8 % [facility] Hemoglobin (Bld) [Mass/Vol] 10.2 g/dL Low 13.4 - 16.8 g/dL [facility] Immature granulocytes (Bld) [#/Vol] 0.06 10*3/uL NINF - 0.07 K/uL [facility] Immature granulocytes/100 WBC (Bld) 1.5 % [facility] Interpretation and review of laboratory results Abnormal [facility] Lymphocytes (Bld) [#/Vol] 1.11 10*3/uL 0.83 - 3.57 K/uL [facility] Lymphocytes/100 WBC (Bld) 27.2 % [facility] MCH (RBC) [Entitic mass] 31.8 pg 26.1 - 33.3 pg [facility] MCHC (RBC) [Mass/Vol] 31.8 g/dL Low 31.9 - 36.5 g/dL [facility] MCV (RBC) [Entitic vol] 100 fL High 79.0 - 94.5 fL [facility] Monocytes (Bld) [#/Vol] 0.52 10*3/uL 0.24 - 0.93 K/uL [facility] Monocytes/100 WBC (Bld) 12.7 % [facility] Neutrophils (Bld) [#/Vol] 2.2 10*3/uL 1.57 - 6.19 K/uL [facility] Nucleated RBC/100 WBC (Bld) [Ratio] 0 % [facility]F [facility] Platelet mean volume (Bld) [Entitic vol] 10.2 fL 8.7 - 12.3 fL [facility] Platelets (Bld) [#/Vol] 419 10*3/uL High 146 - 337 K/uL [facility] RBC (Bld) [#/Vol] 3.21 10*6/uL Low [facility] Segmented neutrophils/100 WBC (Bld) 53.9 % [facility] WBC (Bld) [#/Vol] 4.08 10*3/uL 3.73 - 10. 10 K/uL [facility] Basophils (Bld) [#/Vol] 0.08 10*3/uL Normal 0.00-0.09 [facility] Comment on above: Performed By: #### L [id number] ####[facility] (DEFAULT)[address] [place] [address] Basophils/100 WBC (Bld) 2.0 % Normal [facility] Comment on above: Performed By: #### L [id number] ####[facility] (DEFAULT)[address] [place] [address] DIFF STATUS Electronic Differential Normal [facility] Comment on above: Performed By: #### L [id number] ####[facility] (DEFAULT)[address] [place] [address] Eosinophils (Bld) [#/Vol] 0.11 10*3/uL Normal 0.00-0.48 [facility] Comment on above: Performed By: #### L [id number] ####[facility] (DEFAULT)[address] [place] [address] Eosinophils/100 WBC (Bld) 2.7 % Normal [facility] Comment on above: Performed By: #### L [id number] ####[facility] (DEFAULT)[address] [place] [address] Hematocrit (Bld) [Volume fraction] 32.1 % Low 39.6-48.8 [facility] Comment on above: Performed By: #### L [id number] ####[facility] (DEFAULT)[address] [place] [address], [place] [address] Hemoglobin (Bld) [Mass/Vol] 10.2 g/dL Low 13.4-16.8 [facility] Comment on above: Performed By: #### L [id number] ####[facility] (DEFAULT)[address] [place] [address] Immature Grans % 1.5 % Normal [facility] Comment on above: Performed By: #### L [id number] ####[facility] (DEFAULT)[address] [place] [address], [place] [address] Immature Grans Absolute 0.06 K/uL Normal <=0.07 [facility] Comment on above: Performed By: #### L [id number] ####[facility] (DEFAULT)[address] [place] [address], [place] [address] Lymphocytes (Bld) [#/Vol] 1.11 10*3/uL Normal 0.83-3.57 [facility] Comment on above: Performed By: #### L [id number] ####[facility] (DEFAULT)[address] [place] [address], [place] [address] Lymphocytes/100 WBC (Bld) 27.2 % Normal [facility] Comment on above: Performed By: #### L [id number] ####[facility] (DEFAULT)[address] [place] [address] MCV (RBC) [Entitic vol] 100.0 fL High 79.0-94.5 [facility] Comment on above: Performed By: #### L [id number] ####[facility] (DEFAULT)[address] [place] [address] Mean Cell Hgb 31.8 pg Normal 26.1-33.3 [facility] Comment on above: Performed By: #### L [id number] ####[facility] (DEFAULT)[address] [facility] [place] [address] Mean Cell Hgb Conc 31.8 g/dL Low 31.9-36.5 [facility] Comment on above: Performed By: #### L [id number] ####[facility] (DEFAULT)[address] [facility] [place] [address] Monocytes (Bld) [#/Vol] 0.52 10*3/uL Normal 0.24-0.93 [facility] Comment on above: Performed By: #### L [id number] ####[facility] (DEFAULT)[address] [facility] [place] [address] Monocytes/100 WBC (Bld) 12.7 % Normal [facility] Comment on above: Performed By: #### L [id number] ####[facility] (DEFAULT)[address] [facility] [place] [address] Nucleated RBC 0.0 /100 WBC Normal <=0.2 [facility] Comment on above: Performed By: #### L [id number] ####[facility] (DEFAULT)[address] [facility] [place] [address] Platelet mean volume (Bld) [Entitic vol] 10.2 fL Normal 8.7-12.3 [facility] Comment on above: Performed By: #### L [id number] ####[facility] (DEFAULT)[address] [facility] [place] [address] Platelets (Bld) [#/Vol] 419 10*3/uL High 146-337 [facility] Comment on above: Performed By: #### L [id number] ####[facility] (DEFAULT)[address] [facility] [place] [address] RBC (Bld) [#/Vol] 3.21 10*6/uL Low 4.38-5.83 [facility] Comment on above: Performed By: #### L [id number] ####[facility] (DEFAULT)[address] [place] [address] RBC Distribution 16.6 % High 10.9-14.3 [facility] Comment on above: Performed By: #### L [id number] ####[facility] (DEFAULT)[address] [place] [address] Segs + Bands Auto 53.9 % Normal [facility] Comment on above: Performed By: #### L [id number] ####[facility] (DEFAULT)[address] [place] [address] Segs + Bands,Absolute Auto 2.20 K/uL Normal 1.57-6.19 [facility] Comment on above: Performed By: #### L [id number] ####[facility] (DEFAULT)[address] [place] [address] WBC (Bld) [#/Vol] 4.08 10*3/uL Normal 3.73-10.10 [facility] Comment on above: Performed By: #### L [id number] ####[facility] (DEFAULT)[address] [place] [address] CHEM 7 (LYTES,BUN,CREA,GLUC) on 08-08-2024 Anion gap [Moles/Vol] 12 mmol/L 7 - 17 mmol/L [facility] Chloride [Moles/Vol] 106 mmol/L 98 - 10 8 mmol/L [facility] CO2 [Moles/Vol] 26 mmol/L 21 - 31 mmol/L [facility] Creatinine [Mass/Vol] 0.75 mg/dL 0.70 - 1.30 mg/dL [facility] eGFR, CKD-EPI, Male - PINF [facility] Comment on above: Reported eGFR is bas ed on the CKD-EPI 2020 equation using creatinine, age, and sex. Glucose [Mass/Vol] 84 mg/dL 70 - 179 mg/dL [facility] Osmolality Calc [Osmolality] 297 [facility] Potassium [Moles/Vol] 4.1 mmol/L 3.5 - 5.0 mmol/L [facility] Sodium [Moles/Vol] 140 mmol/L 135 - 145 mmol/L [facility] Urea nitrogen [Mass/Vol] 26 mg/dL High 7 - 25 mg/dL [facility] Urea nitrogen/Creatinine [Mass ratio] 35 mg/mg [facility] Anion gap [Moles/Vol] 12 mmol/L Normal 7-17 [facility] Comment on above: Performed By: #### I PB, HFP, CHM7, MGO, CA ####[facility] (DEFAULT)[address] [place] [address] Chloride [Moles/Vol] 106 mmol/L Normal 98-108 [facility] Comment on above: Performed By: #### I PB, HFP, CHM7, MGO, CA ####[facility] (DEFAULT)[address] [place] [address] CO2 [Moles/Vol] 26 mmol/L Normal 21-31 [facility] Comment on above: Performed By: #### I PB, HFP, CHM7, MGO, CA ####[facility] (DEFAULT)[address] [place] [address] Creatinine [Mass/Vol] 0.75 mg/dL Normal 0.70-1.30 [facility] Comment on above: Performed By: #### I PB, HFP, CHM7, MGO, CA ####[facility] (DEFAULT)[address] [place] [address] eGFR, CKD-EPI, Male > Normal >=60 [facility] Comment on above: Result Comment: Repo rted eGFR is based on the CKD-EPI 2020 equation using creatinine, age, and sex. Performed By: #### I PB, HFP, CHM7, MGO, CA ####[facility] (DEFAULT)[address] [facility] [place] [address] Glucose [Mass/Vol] 84 mg/dL Normal Nonfastin -179 mg/dL; Fastin-99 [facility] Comment on above: Performed By: #### I PB, HFP, CHM7, MGO, CA ####[facility] (DEFAULT)[address] [facility] [place] [place] [address] Osmolality [Osmolality] 297 mosm/kg Normal 278-305 [facility] Comment on above: Performed By: #### I PB, HFP, CHM7, MGO, CA ####[facility] (DEFAULT)[address] [facility] [place] [address] Potassium [Moles/Vol] 4.1 mmol/L Normal 3.5-5.0 [facility] Comment on above: Performed By: #### I PB, HFP, CHM7, MGO, CA ####[facility] (DEFAULT)[address] [facility] [place] [address] Sodium [Moles/Vol] 140 mmol/L Normal 135-145 [facility] Comment on above: Performed By: #### I PB, HFP, CHM7, MGO, CA ####[facility] (DEFAULT)[address] [facility] [place] [address] Urea nitrogen [Mass/Vol] 26 mg/dL High 7-25 [facility] Comment on above: Performed By: #### I PB, HFP, CHM7, MGO, CA ####[facility] (DEFAULT)[address] [place] [address] Urea nitrogen/Creatinine [Mass ratio] 35 mg/mg Normal [facility] Comment on above: Performed By: #### I PB, HFP, CHM7, MGO, CA ####[facility] (DEFAULT)[address] [facility] [place] [address] COXIELLA BURNETII (Q FEVER) PCR, BLOOD 08-08-2024 C. burnetii aroE gene JACKY+non-probe Ql (S/P/Bld) Negative Not Applicable [facility] Comment on above: ADDITIONAL INFORMATION This test was developed and its performance characteristics determined by [facility] in a manner consistent with CLIA requirements. This test has not been cleared or approved by the U.S. Food and Drug Administration. Test Performed by: [facility] [place] [address] Jute Bag Clipper: Orlando Cruz Ph.D.; CLIA# [id number] Specimen source Nom (Unsp spec) [facility] Chest WO contraston 08-08 Radiology Study observation (narrative) [facility] EHRLICHIA/ANAPLASMA PCRon A. phagocytophilum groEL gene JACKY+non-probe Ql (Bld) Negative Negative [facility] E. canis+ewingii groEL gene JACKY+non-probe Ql (Bld) Negative Negative [facility] E. chaffeensis groEL gene JACKY+non-probe Ql (Bld) Negative Negative [facility] E. muris eauclairensis groEL gene JACKY+non-probe Ql (Bld) Negative Negative [facility] Comment on above: ADDITIONAL INFORMATION This test was developed and its performance characteristics determined by [facility] in a manner consistent with CLIA requirements. This test has not been cleared or approved by the U.S. Food and Drug Administration. Test Performed by: [facility] [place] [address] [employer] Bag Clipper: Orlando Cruz Ph.D.; CLIA# [id number] [facility] HEPATIC FUNCTION PANELon Albumin [Mass/Vol] 3.5 g/dL 3.5 - 5.0 g/dL [facility] ALP [Catalytic activity/Vol] 239 U/L High 32 - 126 U/L [facility] ALT [Catalytic activity/Vol] 30 U/L 10 - 52 U/L [facility] AST [Catalytic activity/Vol] 16 U/L 10 - 39 U/L [facility] Bilirubin [Mass/Vol] 0.3 mg/dL NINF - 1.5 mg/dL [facility] Bilirubin.direct [Mass/Vol] 0.1 mg/dL NINF - 0.3 mg/dL [facility] Protein [Mass/Vol] 6.1 g/dL Low 6.4 - 8.3 g/dL [facility] Albumin [Mass/Vol] 3.5 g/dL Normal 3.5-5.0 [facility] Comment on above: Performed By: #### I PB, HFP, CHM7, MGO, CA ####[facility] (DEFAULT)[address] [place] [address] ALP [Catalytic activity/Vol] 239 U/L High 32-126 [facility] Comment on above: Performed By: #### I PB, HFP, CHM7, MGO, CA ####[facility] (DEFAULT)[address] [facility] [place] [address] ALT [Catalytic activity/Vol] 30 U/L Normal 10-52 [facility] Comment on above: Performed By: #### I PB, HFP, CHM7, MGO, CA ####[facility] (DEFAULT)[address] [place] [address] AST [Catalytic activity/Vol] 16 U/L Normal 10-39 [facility] Comment on above: Performed By: #### I PB, HFP, CHM7, MGO, CA ####[facility] (DEFAULT)[address] [facility] [place] [address] Bilirubin [Mass/Vol] 0.3 mg/dL Normal <1.5 [facility] Comment on above: Performed By: #### I PB, HFP, CHM7, MGO, CA ####[facility] (DEFAULT)[address] [place] [address] Bilirubin.indirect [Mass/Vol] 0.1 mg/dL Normal <0.3 [facility] Comment on above: Performed By: #### I PB, HFP, CHM7, MGO, CA ####[facility] (DEFAULT)[address] [place] [address] Protein [Mass/Vol] 6.1 g/dL Low 6.4-8.3 [facility] Comment on above: Performed By: #### I PB, HFP, CHM7, MGO, CA ####[facility] (DEFAULT)[address] [facility] [place] [place] [address] HISTOPLASMA AND BLASTOMYCES ANTIGEN, ENZYME IMMUNOASSAY, SERMon 08-08-2024 Histoplasma/Blastomyc es Ag Result Not detected Not Detected [facility] Comment on above: No antigen from Hist oplasma or Blastomyces detected. False negative results may occur depending on extent of disease, and/or site of infection. Repeat testing on a new specimen if clinically indicated. Histoplasma/Blastomyc es Ag Value Not detected ng/mL [facility] Comment on above: ADDITIONAL INFORMATION This test was developed and its performance characteristics determined by [facility] in a manner consistent with CLIA requirements. This test has not been cleared or approved by the U.S. Food and Drug Administration. Test Performed by: [facility] [address] [place] [address] Jute Bag Clipper: Orlando Cruz Ph.D.; CLIA# [id number] [facility] HISTOPLASMA ANTIGEN,URINEOrd ered By: Nathaly Barahona on 08-08-2024 H. capsulatum Ag IA Ql (U) Not detected Not Detected [facility] Comment on above: Histoplasma galactom korey can be detected in patients with disseminated histoplasmosis. A negative results does not rule out histoplasmosis. Repeat testing on a new specimen should be considered if clinically indicated. False positive results may occur in patients with other fungal infections including blastomycosis. Results should be correlated with clinical presentation, exposure history and other diagnostics tests. Interpretation and review of laboratory results Normal [facility] MAGNESIUMon 08-08-2024 Magnesium [Mass/Vol] 1.8 mg/dL 1.6 - 2 .6 mg/dL [facility] Magnesium [Mass/Vol] 1.8 mg/dL Normal 1.6-2.6 [facility] Comment on above: Performed By: #### I PB, HFP, CHM7, MGO, CA ####[facility] (DEFAULT)[address] [place] [id number] No Panel Informationon 08-08 Interpretation and review of laboratory results Abnormal [facility] Interpretation and review of laboratory results Normal [facility] PHOSPHATE, INORGANICon 08-08 Phosphate [Mass/Vol] 3.3 mg/dL 2.2 - 4 .6 mg/dL [facility] Phosphorous 3.3 mg/dL Normal 2.2-4.6 [facility] Comment on above: Performed By: #### I PB, HFP, CHM7, MGO, CA ####[facility] (DEFAULT)[address] [place] [address] Q FEVER IGM/IGG, TITER, Son 08-08-2024 C. burnetii phase 1 IgG IF (S) [Titer] <1:16 [facility] C. burnetii phase 1 IgM (S) [Titer] <1:16 [facility] C. burnetii phase 2 IgG IF (S) [Titer] 1:32 Abnormal [facility] C. burnetii phase 2 IgM (S) [Titer] <1:16 [facility] Hand Upper And Bottom Lacer review Deandre (Unsp spec) [Interp] SEE COMMENTS [facility] Comment on above: Active Q Fever infec tions are characterized by a fourfold increase in serum IgG between acute and convalescent samples and/or the presence of IgM antibodies directed against phase II organisms. In chronic Q Fever the IgG and/or IgM response is most often directed against phase I organisms, resulting in phase I titers that are greater than phase II titers. Test Performed by: [facility] [address] [place] [address] Jute Bag Clipper: Orlando Cruz Ph.D.; CLIA# [id number] Interpretation and review of laboratory results Abnormal [facility] TACROLIMUS LEVEL, TROUGH (PA E DRUG LEVEL)on 08-08-2024 Tacrolimus (Bld) [Mass/Vol] 5.4 ng/mL Bone Marrow Transplant: 5.0-15.0 Kidney/Pancre atic Transplant: 0 to 3 months: 8.0-10.0, 3 to 12 months: 6.0-8.0, >12 months: 4.0-6.0 [facility] Method performed is a chemiluminescent microparticle immunoasssay on the [employer] i2000. The range is based on experience at [facility] and users should be aware that target concentrations vary widely depending on concomitant therapy, time post-transplant, and desired degree of immunosuppression. [facility] Tacrolimus, Trough 5.4 ng/mL Normal Bone Veronique ow Transplant: 5.0-15.0 Kidney/Pancre atic Transplant: 0 to 3 months: 8.0-10.0, 3 to 12 months: 6.0-8.0, >12 months: 4.0-6.0 [facility] Comment on above: Order Comment: Pleas e draw at specified interval PRIOR to dose. Do not hold dose to wait for level. Specimens batched twice per day, (M-F) and once per day weekendsMethod performed is a chemiluminescent microparticle immunoasssay on the [employer] i2000.The range is based on experience at [facility] and users should be aware that target concentrations vary widely depending on concomitant therapy, time post-transplant, and desired degree of immunosuppression. Performed By: #### T ACRO ####[facility] (DEFAULT)[facility] [address] [place] [address] CALCIUMon 08-07-2024 Calcium [Mass/Vol] 8.9 mg/dL 8.6 - 10. 5 mg/dL [facility] Interpretation and review of laboratory results Normal [facility] Calcium [Mass/Vol] 8.9 mg/dL Normal 8.6-10.5 [facility] Comment on above: Performed By: #### H FP, CHM7, CA, IPB, MGO ####[facility] (DEFAULT)[address] [place] [address] CBC AND ELECTRONIC DIFFon Basophils (Bld) [#/Vol] 0.05 10*3/uL 0.00 - 0.09 K/uL [facility] Basophils/100 WBC (Bld) 1.3 % [facility] Differential cell count method Nom (Bld) Electronic Differential [facility] Eosinophils (Bld) [#/Vol] 0.09 10*3/uL 0.00 - 0.48 K/uL [facility] Eosinophils/100 WBC (Bld) 2.4 % [facility] Erythrocyte distribution width (RBC) [Ratio] 16.6 % High 10.9 - 14.3 % [facility] Hematocrit (Bld) [Volume fraction] 33.3 % Low 39.6 - 48.8 % [facility] Hemoglobin (Bld) [Mass/Vol] 10.4 g/dL Low 13.4 - 16.8 g/dL [facility] Immature granulocytes (Bld) [#/Vol] 0.13 10*3/uL High NINF - 0.07 K/uL [facility] Immature granulocytes/100 WBC (Bld) 3.5 % [facility] Interpretation and review of laboratory results Abnormal [facility] Lymphocytes (Bld) [#/Vol] 1 10*3/uL 0.83 - 3.57 K/uL [facility] Lymphocytes/100 WBC (Bld) 26.8 % [facility] MCH (RBC) [Entitic mass] 31.4 pg 26.1 - 33.3 pg [facility] MCHC (RBC) [Mass/Vol] 31.2 g/dL Low 31.9 - 36.5 g/dL [facility] MCV (RBC) [Entitic vol] 100.6 fL High 79.0 - 94.5 fL [facility] Monocytes (Bld) [#/Vol] 0.56 10*3/uL 0.24 - 0.93 K/uL [facility] Monocytes/100 WBC (Bld) 15 % [facility] Neutrophils (Bld) [#/Vol] 1.9 10*3/uL 1.57 - 6.19 K/uL [facility] Nucleated RBC/100 WBC (Bld) [Ratio] 0 % NINF [facility] Platelet mean volume (Bld) [Entitic vol] 10.9 fL 8.7 - 12.3 fL [facility] Platelets (Bld) [#/Vol] 369 10*3/uL High 146 - 337 K/uL [facility] RBC (Bld) [#/Vol] 3.31 10*6/uL Low [facility] Segmented neutrophils/100 WBC (Bld) 51 % [facility] WBC (Bld) [#/Vol] 3.73 10*3/uL 3.73 - 10. 10 K/uL [facility] Basophils (Bld) [#/Vol] 0.05 10*3/uL Normal 0.00-0.09 [facility] Comment on above: Performed By: #### L [id number] ####[facility] (DEFAULT)[address] [place] [address] Basophils/100 WBC (Bld) 1.3 % Normal [facility] Comment on above: Performed By: #### L [id number] ####[facility] (DEFAULT)[address] [place] [address] DIFF STATUS Electronic Differential Normal [facility] Comment on above: Performed By: #### L [id number] ####[facility] (DEFAULT)[address] [place] [address] Eosinophils (Bld) [#/Vol] 0.09 10*3/uL Normal 0.00-0.48 [facility] Comment on above: Performed By: #### L [id number] ####[facility] (DEFAULT)[address] [facility] [place] [address] Eosinophils/100 WBC (Bld) 2.4 % Normal [facility] Comment on above: Performed By: #### L [id number] ####[facility] (DEFAULT)[address] [place] [address] Hematocrit (Bld) [Volume fraction] 33.3 % Low 39.6-48.8 [facility] Comment on above: Performed By: #### L [id number] ####[facility] (DEFAULT)[address] [place] [address] Hemoglobin (Bld) [Mass/Vol] 10.4 g/dL Low 13.4-16.8 [facility] Comment on above: Performed By: #### L [id number] ####[facility] (DEFAULT)[address] [place] [address] Immature Grans % 3.5 % Normal [facility] Comment on above: Performed By: #### L [id number] ####[facility] (DEFAULT)[address] [facility] [place] [place] [address] Immature Grans Absolute 0.13 K/uL High <=0.07 [facility] Comment on above: Performed By: #### L [id number] ####[facility] (DEFAULT)[address] [place] [address] Lymphocytes (Bld) [#/Vol] 1.00 10*3/uL Normal 0.83-3.57 [facility] Comment on above: Performed By: #### L [id number] ####[facility] (DEFAULT)[address] [place] [address] Lymphocytes/100 WBC (Bld) 26.8 % Normal [facility] Comment on above: Performed By: #### L [id number] ####[facility] (DEFAULT)[address] [facility] [place] [address] MCV (RBC) [Entitic vol] 100.6 fL High 79.0-94.5 [facility] Comment on above: Performed By: #### L [id number] ####[facility] (DEFAULT)[address] [facility] [place] [address] Mean Cell Hgb 31.4 pg Normal 26.1-33.3 [facility] Comment on above: Performed By: #### L [id number] ####[facility] (DEFAULT)[address] [facility] [place] [place] [address] Mean Cell Hgb Conc 31.2 g/dL Low 31.9-36.5 [facility] Comment on above: Performed By: #### L [id number] ####[facility] (DEFAULT)[address] [place] [address] Monocytes (Bld) [#/Vol] 0.56 10*3/uL Normal 0.24-0.93 [facility] Comment on above: Performed By: #### L [id number] ####[facility] (DEFAULT)[address] [place] [address] Monocytes/100 WBC (Bld) 15.0 % Normal [facility] Comment on above: Performed By: #### L [id number] ####[facility] (DEFAULT)[address] [facility] [place] [address] Nucleated RBC 0.0 /100 WBC Normal <=0.2 [facility] Comment on above: Performed By: #### L [id number] ####[facility] (DEFAULT)[address] [place] [address] Platelet mean volume (Bld) [Entitic vol] 10.9 fL Normal 8.7-12.3 [facility] Comment on above: Performed By: #### L [id number] ####[facility] (DEFAULT)[address] [facility] [place] [place] [address] Platelets (Bld) [#/Vol] 369 10*3/uL High 146-337 [facility] Comment on above: Performed By: #### L [id number] ####[facility] (DEFAULT)[address] [facility] [place] [address] RBC (Bld) [#/Vol] 3.31 10*6/uL Low 4.38-5.83 [facility] Comment on above: Performed By: #### L [id number] ####[facility] (DEFAULT)[address] [facility] [place] [place] [address] RBC Distribution 16.6 % High 10.9-14.3 [facility] Comment on above: Performed By: #### L [id number] ####[facility] (DEFAULT)[address] [place] [address] Segs + Bands Auto 51.0 % Normal [facility] Comment on above: Performed By: #### L [id number] ####[facility] (DEFAULT)[address] [place] [address] Segs + Bands,Absolute Auto 1.90 K/uL Normal 1.57-6.19 [facility] Comment on above: Performed By: #### L [id number] ####[facility] (DEFAULT)[address] [place] [address] WBC (Bld) [#/Vol] 3.73 10*3/uL Normal 3.73-10.10 [facility] Comment on above: Performed By: #### L [id number] ####[facility] (DEFAULT)[address] [place] [address] CHEM 7 (LYTES,BUN,CREA,GLUC) on 08-07-2024 Anion gap [Moles/Vol] 13 mmol/L 7 - 17 mmol/L [facility] Chloride [Moles/Vol] 105 mmol/L 98 - 10 8 mmol/L [facility] CO2 [Moles/Vol] 24 mmol/L 21 - 31 mmol/L [facility] Creatinine [Mass/Vol] 0.69 mg/dL Low 0.70 - 1.30 mg/dL [facility] eGFR, CKD-EPI, Male - PINF [facility] Comment on above: Reported eGFR is bas ed on the CKD-EPI 2020 equation using creatinine, age, and sex. Glucose [Mass/Vol] 85 mg/dL 70 - 179 mg/dL [facility] Osmolality Calc [Osmolality] 294 [facility] Potassium [Moles/Vol] 4.1 mmol/L 3.5 - 5.0 mmol/L [facility] Sodium [Moles/Vol] 138 mmol/L 135 - 145 mmol/L [facility] Urea nitrogen [Mass/Vol] 28 mg/dL High 7 - 25 mg/dL [facility] Urea nitrogen/Creatinine [Mass ratio] 41 mg/mg [facility] Anion gap [Moles/Vol] 13 mmol/L Normal 7-17 [facility] Comment on above: Performed By: #### H FP, CHM7, CA, IPB, MGO ####[facility] (DEFAULT)[address] [place] [address] Chloride [Moles/Vol] 105 mmol/L Normal 98-108 [facility] Comment on above: Performed By: #### H FP, CHM7, CA, IPB, MGO ####[facility] (DEFAULT)[address] [place] [address] CO2 [Moles/Vol] 24 mmol/L Normal 21-31 [facility] Comment on above: Performed By: #### H FP, CHM7, CA, IPB, MGO ####[facility] (DEFAULT)[address] [place] [address] Creatinine [Mass/Vol] 0.69 mg/dL Low 0.70-1.30 [facility] Comment on above: Performed By: #### H FP, CHM7, CA, IPB, MGO ####[facility] (DEFAULT)[address] [facility] [place] [address] eGFR, CKD-EPI, Male > Normal >=60 [facility] Comment on above: Result Comment: Repo rted eGFR is based on the CKD-EPI 2020 equation using creatinine, age, and sex. Performed By: #### H FP, CHM7, CA, IPB, MGO ####[facility] (DEFAULT)[address] [facility] [place] [address] Glucose [Mass/Vol] 85 mg/dL Normal Nonfastin -179 mg/dL; Fastin-99 [facility] Comment on above: Performed By: #### H FP, CHM7, CA, IPB, MGO ####[facility] (DEFAULT)[address] [place] [address] Osmolality [Osmolality] 294 mosm/kg Normal 278-305 [facility] Comment on above: Performed By: #### H FP, CHM7, CA, IPB, MGO ####[facility] (DEFAULT)[address] [facility] [place] [place] [address] Potassium [Moles/Vol] 4.1 mmol/L Normal 3.5-5.0 [facility] Comment on above: Performed By: #### H FP, CHM7, CA, IPB, MGO ####[facility] (DEFAULT)[address] [facility] [place] [address] Sodium [Moles/Vol] 138 mmol/L Normal 135-145 [facility] Comment on above: Performed By: #### H FP, CHM7, CA, IPB, MGO ####[facility] (DEFAULT)[address] [place] [address] Urea nitrogen [Mass/Vol] 28 mg/dL High 7-25 [facility] Comment on above: Performed By: #### H FP, CHM7, CA, IPB, MGO ####[facility] (DEFAULT)[address] [place] [address] Urea nitrogen/Creatinine [Mass ratio] 41 mg/mg Normal [facility] Comment on above: Performed By: #### H FP, CHM7, CA, IPB, MGO ####[facility] (DEFAULT)[address] [place] [address] HEPATIC FUNCTION PANELon Albumin [Mass/Vol] 3.6 g/dL 3.5 - 5.0 g/dL [facility] ALP [Catalytic activity/Vol] 276 U/L High 32 - 126 U/L [facility] ALT [Catalytic activity/Vol] 40 U/L 10 - 52 U/L [facility] AST [Catalytic activity/Vol] 23 U/L 10 - 39 U/L [facility] Bilirubin [Mass/Vol] 0.3 mg/dL NINF - 1.5 mg/dL [facility] Bilirubin.direct [Mass/Vol] 0.1 mg/dL NINF - 0.3 mg/dL [facility] Protein [Mass/Vol] 6.3 g/dL Low 6.4 - 8.3 g/dL [facility] Albumin [Mass/Vol] 3.6 g/dL Normal 3.5-5.0 [facility] Comment on above: Performed By: #### H JAKE, CHM7, CA, IPB, MGO ####[facility] (DEFAULT)[address] [place] [address] ALP [Catalytic activity/Vol] 276 U/L High 32-126 [facility] Comment on above: Performed By: #### H FP, CHM7, CA, IPB, MGO ####[facility] (DEFAULT)[address] [place] [address] ALT [Catalytic activity/Vol] 40 U/L Normal 10-52 [facility] Comment on above: Performed By: #### H FP, CHM7, CA, IPB, MGO ####[facility] (DEFAULT)[address] [facility] [place] [address] AST [Catalytic activity/Vol] 23 U/L Normal 10-39 [facility] Comment on above: Performed By: #### H FP, CHM7, CA, IPB, MGO ####[facility] (DEFAULT)[address] [facility] [place] [address] Bilirubin [Mass/Vol] 0.3 mg/dL Normal <1.5 [facility] Comment on above: Performed By: #### H FP, CHM7, CA, IPB, MGO ####[facility] (DEFAULT)[address] [facility] [place] [address] Bilirubin.indirect [Mass/Vol] 0.1 mg/dL Normal <0.3 [facility] Comment on above: Performed By: #### H FP, CHM7, CA, IPB, MGO ####[facility] (DEFAULT)[address] [place] [address] Protein [Mass/Vol] 6.3 g/dL Low 6.4-8.3 [facility] Comment on above: Performed By: #### H FP, CHM7, CA, IPB, MGO ####[facility] (DEFAULT)[address] [place] [address] MAGNESIUMon 08-07-2024 Magnesium [Mass/Vol] 1.6 mg/dL 1.6 - 2 .6 mg/dL [facility] Magnesium [Mass/Vol] 1.6 mg/dL Normal 1.6-2.6 [facility] Comment on above: Performed By: #### H FP, CHM7, CA, IPB, MGO ####[facility] (DEFAULT)[address] [facility] [place] [address] No Panel Informationon 08-07 Interpretation and review of laboratory results Abnormal [facility] Interpretation and review of laboratory results Normal [facility] PHOSPHATE, INORGANICon 08-07 Phosphate [Mass/Vol] 3.5 mg/dL 2.2 - 4 .6 mg/dL [facility] Phosphorous 3.5 mg/dL Normal 2.2-4.6 [facility] Comment on above: Performed By: #### H FP, CHM7, CA, IPB, MGO ####[facility] (DEFAULT)[address] [place] [address] Q FEVER ANTIBODYon C. burnetii Ab IA Ql (S) Reactive Negative [facility] Comment on above: Not diagnostic. [facility] le reflexed to IFA to determine Q Fever (Coxiella burnetii) phase I and phase II IgM and IgG titers. ADDITIONAL INFORMATION This test was developed and its performance characteristics determined by [facility] in a manner consistent with CLIA requirements. This test has not been cleared or approved by the U.S. Food and Drug Administration. Test Performed by: [facility] [place] [id number] Jute Bag Clipper: Orlando Cruz Ph.D.; CLIA# [id number] [facility] TACROLIMUS LEVEL, TROUGH (PA E DRUG LEVEL)on 08-07-2024 Tacrolimus (Bld) [Mass/Vol] 5.6 ng/mL Bone Marrow Transplant: 5.0-15.0 Kidney/Pancre atic Transplant: 0 to 3 months: 8.0-10.0, 3 to 12 months: 6.0-8.0, >12 months: 4.0-6.0 [facility] Method performed is a chemiluminescent microparticle immunoasssay on the [employer] M[employer]ainer i2000. The range is based on experience at [facility] and users should be aware that target concentrations vary widely depending on concomitant therapy, time post-transplant, and desired degree of immunosuppression. [facility] Tacrolimus, Trough 5.6 ng/mL Normal Bone Veronique ow Transplant: 5.0-15.0 Kidney/Pancre atic Transplant: 0 to 3 months: 8.0-10.0, 3 to 12 months: 6.0-8.0, >12 months: 4.0-6.0 [facility] Comment on above: Order Comment: Bunny e draw at specified interval PRIOR to dose. Do not hold dose to wait for level. Specimens batched twice per day, (M-F) and once per day weekendsMethod performed is a chemiluminescent microparticle immunoasssay on the [employer] Maintainer i2000.The range is based on experience at [facility] and users should be aware that target concentrations vary widely depending on concomitant therapy, time post-transplant, and desired degree of immunosuppression. Performed By: #### T ACRO ####[facility] (DEFAULT)[address] [place] [address] Bacteria identified Cx Nom ( Bld)on 08-06-2024 Bacteria identified Cx Nom (Unsp spec) NO GROWTH DAY 5 OF 5 [facility] Results may be compromised due to LOW VOLUME of the BACT\ALERT bottle UNDER 8mLs, which can be associated with decreased sensitivity. The optimal blood volume is 8-10mLs per aerobic/anaerobic blood culture bottle. [facility] C DIFFICILE TWO STEPOrdered By: Wanda Mendoza on 08-06-2024 C. difficile DNA JACKY+probe Ql (Unsp spec) Negative Negative [facility] Comment on above: This assay detects C . difficile (Toxin B gene DNA) by PCR. Interpretation and review of laboratory results Normal [facility] CALCIUMon 08-06-2024 Calcium [Mass/Vol] 8.9 mg/dL 8.6 - 10. 5 mg/dL [facility] Calcium [Mass/Vol] 8.9 mg/dL Normal 8.6-10.5 [facility] Comment on above: Performed By: #### I PB, HFP, CHM7, MGO, CA ####[facility] (DEFAULT)[address] [place] [address] CBC AND ELECTRONIC DIFFon Erythrocyte distribution width (RBC) [Ratio] 16.7 % High 10.9 - 14.3 % [facility] Hematocrit (Bld) [Volume fraction] 34.7 % Low 39.6 - 48.8 % [facility] Hemoglobin (Bld) [Mass/Vol] 11.4 g/dL Low 13.4 - 16.8 g/dL [facility] MCH (RBC) [Entitic mass] 31.9 pg 26.1 - 33.3 pg [facility] MCHC (RBC) [Mass/Vol] 32.9 g/dL 31.9 - 36.5 g/dL [facility] MCV (RBC) [Entitic vol] 97.2 fL High 79.0 - 94.5 fL [facility] Platelet mean volume (Bld) [Entitic vol] 9.8 fL 8.7 - 12.3 fL [facility] Platelets (Bld) [#/Vol] 400 10*3/uL High 146 - 337 K/uL [facility] RBC (Bld) [#/Vol] 3.57 10*6/uL Low [facility] WBC (Bld) [#/Vol] 4.46 10*3/uL 3.73 - 10. 10 K/uL [facility] Hematocrit (Bld) [Volume fraction] 34.7 % Low 39.6-48.8 [facility] Comment on above: Performed By: #### L [id number] ####[facility] (DEFAULT)[address] [address] Hemoglobin (Bld) [Mass/Vol] 11.4 g/dL Low 13.4-16.8 [facility] Comment on above: Performed By: #### L [id number] ####[facility] (DEFAULT)[address] [address] MCV (RBC) [Entitic vol] 97.2 fL High 79.0-94.5 [facility] Comment on above: Performed By: #### L [id number] ####[facility] (DEFAULT)[address] [facility] [place] [address] Mean Cell Hgb 31.9 pg Normal 26.1-33.3 [facility] Comment on above: Performed By: #### L AB980 ####[facility] (DEFAULT)[address] [place] [address] Mean Cell Hgb Conc 32.9 g/dL Normal 31.9-36.5 [facility] Comment on above: Performed By: #### L [id number] ####[facility] (DEFAULT)[address] [facility] [place] [address] Platelet mean volume (Bld) [Entitic vol] 9.8 fL Normal 8.7-12.3 [facility] Comment on above: Performed By: #### L [id number] ####[facility] (DEFAULT)[address] [facility] [place] [address] Platelets (Bld) [#/Vol] 400 10*3/uL High 146-337 [facility] Comment on above: Performed By: #### L [id number] ####[facility] (DEFAULT)[address] [facility] [place] [address] RBC (Bld) [#/Vol] 3.57 10*6/uL Low 4.38-5.83 [facility] Comment on above: Performed By: #### L [id number] ####[facility] (DEFAULT)[address] [facility] [place] [address] RBC Distribution 16.7 % High 10.9-14.3 [facility] Comment on above: Performed By: #### L [id number] ####[facility] (DEFAULT)[address] [facility] [place] [address] WBC (Bld) [#/Vol] 4.46 10*3/uL Normal 3.73-10.10 [facility] Comment on above: Performed By: #### L [id number] ####[facility] (DEFAULT)[address] [place] [address] CHEM 7 (LYTES,BUN,CREA,GLUC) on 08-06-2024 Anion gap [Moles/Vol] 14 mmol/L 7 - 17 mmol/L [facility] Chloride [Moles/Vol] 105 mmol/L 98 - 10 8 mmol/L [facility] CO2 [Moles/Vol] 25 mmol/L 21 - 31 mmol/L [facility] Creatinine [Mass/Vol] 0.73 mg/dL 0.70 - 1.30 mg/dL [facility] eGFR, CKD-EPI, Male - PINF [facility] Comment on above: Reported eGFR is bas ed on the CKD-EPI 2020 equation using creatinine, age, and sex. Glucose [Mass/Vol] 88 mg/dL 70 - 179 mg/dL [facility] Osmolality Calc [Osmolality] 297 [facility] Potassium [Moles/Vol] 4.2 mmol/L 3.5 - 5.0 mmol/L [facility] Sodium [Moles/Vol] 140 mmol/L 135 - 145 mmol/L [facility] Urea nitrogen [Mass/Vol] 27 mg/dL High 7 - 25 mg/dL [facility] Urea nitrogen/Creatinine [Mass ratio] 37 mg/mg [facility] Anion gap [Moles/Vol] 14 mmol/L Normal 7-[address] [facility] Comment on above: Performed By: #### I PB, HFP, CHM7, MGO, CA ####[facility] (DEFAULT)[address] [place] [address] Chloride [Moles/Vol] 105 mmol/L Normal 98-108 [facility] Comment on above: Performed By: #### I PB, HFP, CHM7, MGO, CA ####[facility] (DEFAULT)[address] [place] [address] CO2 [Moles/Vol] 25 mmol/L Normal 21-31 [facility] Comment on above: Performed By: #### I PB, HFP, CHM7, MGO, CA ####[facility] (DEFAULT)[address] [facility] [place] [address] Creatinine [Mass/Vol] 0.73 mg/dL Normal 0.70-1.30 [facility] Comment on above: Performed By: #### I PB, HFP, CHM7, MGO, CA ####[facility] (DEFAULT)[address] [facility] [place] [address] eGFR, CKD-EPI, Male > Normal >=60 [facility] Comment on above: Result Comment: Repo rted eGFR is based on the CKD-EPI 2020 equation using creatinine, age, and sex. Performed By: #### I PB, HFP, CHM7, MGO, CA ####[facility] (DEFAULT)[address] [facility] [place] [address] Glucose [Mass/Vol] 88 mg/dL Normal Nonfastin -179 mg/dL; Fastin-99 [facility] Comment on above: Performed By: #### I PB, HFP, CHM7, MGO, CA ####[facility] (DEFAULT)[address] [facility] [place] [address] Osmolality [Osmolality] 297 mosm/kg Normal 278-305 [facility] Comment on above: Performed By: #### I PB, HFP, CHM7, MGO, CA ####[facility] (DEFAULT)[address] [facility] [place] [address] Potassium [Moles/Vol] 4.2 mmol/L Normal 3.5-5.0 [facility] Comment on above: Performed By: #### I PB, HFP, CHM7, MGO, CA ####[facility] (DEFAULT)[address] [facility] [place] [address] Sodium [Moles/Vol] 140 mmol/L Normal 135-145 [facility] Comment on above: Performed By: #### I PB, HFP, CHM7, MGO, CA ####[facility] (DEFAULT)[address] [place] [address] Urea nitrogen [Mass/Vol] 27 mg/dL High 7-25 [facility] Comment on above: Performed By: #### I PB, HFP, CHM7, MGO, CA ####[facility] (DEFAULT)[address] [place] [address] Urea nitrogen/Creatinine [Mass ratio] 37 mg/mg Normal [facility] Comment on above: Performed By: #### I PB, HFP, CHM7, MGO, CA ####[facility] (DEFAULT)[address] [place] [address] HEPATIC FUNCTION PANELon Albumin [Mass/Vol] 3.7 g/dL 3.5 - 5.0 g/dL [facility] ALP [Catalytic activity/Vol] 326 U/L High 32 - 126 U/L [facility] ALT [Catalytic activity/Vol] 49 U/L 10 - 52 U/L [facility] AST [Catalytic activity/Vol] 22 U/L 10 - 39 U/L [facility] Bilirubin [Mass/Vol] 0.3 mg/dL [facility]F - 1.5 mg/dL [facility] Bilirubin.direct [Mass/Vol] 0.1 mg/dL NINF - 0.3 mg/dL [facility] Protein [Mass/Vol] 6.4 g/dL 6.4 - 8.3 g/dL [facility] Albumin [Mass/Vol] 3.7 g/dL Normal 3.5-5.0 [facility] Comment on above: Performed By: #### I PB, HFP, CHM7, MGO, CA ####[facility] (DEFAULT)[address] [place] [address] ALP [Catalytic activity/Vol] 326 U/L High 32-126 [facility] Comment on above: Performed By: #### I PB, HFP, CHM7, MGO, CA ####[facility] (DEFAULT)[address] [place] [address] ALT [Catalytic activity/Vol] 49 U/L Normal 10-52 [facility] Comment on above: Performed By: #### I PB, HFP, CHM7, MGO, CA ####[facility] (DEFAULT)[address] [place] [address] AST [Catalytic activity/Vol] 22 U/L Normal 10-39 [facility] Comment on above: Performed By: #### I PB, HFP, CHM7, MGO, CA ####[facility] (DEFAULT)[address] [place] [address] Bilirubin [Mass/Vol] 0.3 mg/dL Normal <1.5 [facility] Comment on above: Performed By: #### I PB, HFP, CHM7, MGO, CA ####[facility] (DEFAULT)[address] [place] [address] Bilirubin.indirect [Mass/Vol] 0.1 mg/dL Normal <0.3 [facility] Comment on above: Performed By: #### I PB, HFP, CHM7, MGO, CA ####[facility] (DEFAULT)[address] [place] [address] Protein [Mass/Vol] 6.4 g/dL Normal 6.4-8.3 [facility] Comment on above: Performed By: #### I PB, HFP, CHM7, MGO, CA ####[facility] (DEFAULT)[address] [place] [address] MAGNESIUMon 08-06-2024 Magnesium [Mass/Vol] 1.7 mg/dL 1.6 - 2 .6 mg/dL [facility] Magnesium [Mass/Vol] 1.7 mg/dL Normal 1.6-2.6 [facility] Comment on above: Performed By: #### I PB, HFP, CHM7, MGO, CA ####[facility] (DEFAULT)[address] [place] [address] MANUAL DIFFon 08-06-2024 Band form neutrophils/100 WBC (Bld) 0 % [facility] Basophils (Bld) [#/Vol] 0.19 10*3/uL High 0.00 - 0.09 K/uL [facility] Basophils/100 WBC (Bld) 4.3 % [facility] [place] cells LM Ql (Bld) Present Abnormal (none) [facility] Differential cell count method Nom (Bld) Manual Differential [facility] Eosinophils (Bld) [#/Vol] 0.15 10*3/uL [facility] Eosinophils/100 WBC (Bld) 3.4 % [facility] Lymphocytes (Bld) [#/Vol] 1.49 10*3/uL 0.83 - 3.57 K/uL [facility] Lymphocytes/100 WBC (Bld) 33.3 % [facility] Monocytes (Bld) [#/Vol] 0.23 10*3/uL Low 0.24 - 0.93 K/uL [facility] Monocytes/100 WBC (Bld) 5.1 % [facility] Neutrophils (Bld) [#/Vol] 2.4 10*3/uL 1.57 - 6.19 K/uL [facility] Platelets Estimate (Bld) [#/Vol] Automated platelet count confirmed by manual slide review [facility] RBC morphology finding Nom (Bld) RBC INDICES CONFIRMED WITH MANUAL SLIDE REVIEW [facility] Segmented neutrophils/100 WBC (Bld) 53.9 % [facility] No Panel Informationon 08-06 Interpretation and review of laboratory results Abnormal [facility] Interpretation and review of laboratory results Abnormal [facility] Interpretation and review of laboratory results Normal [facility] PHOSPHATE, INORGANICon 08-06 Phosphate [Mass/Vol] 3 mg/dL 2.2 - 4 .6 mg/dL [facility] Phosphorous 3.0 mg/dL Normal 2.2-4.6 [facility] Comment on above: Performed By: #### I PB, HFP, CHM7, MGO, CA ####[facility] (DEFAULT)[address] [place] [address] TACROLIMUS LEVEL, TROUGH (PA E DRUG LEVEL)on 08-06-2024 Tacrolimus (Bld) [Mass/Vol] 6.1 ng/mL Bone Marrow Transplant: 5.0-15.0 Kidney/Pancre atic Transplant: 0 to 3 months: 8.0-10.0, 3 to 12 months: 6.0-8.0, >12 months: 4.0-6.0 [facility] Method performed is a chemiluminescent microparticle immunoasssay on the [employer]ainer i2000. The range is based on experience at [facility] and users should be aware that target concentrations vary widely depending on concomitant therapy, time post-transplant, and desired degree of immunosuppression. [facility] Tacrolimus, Trough 6.1 ng/mL Normal Bone Veronique ow Transplant: 5.0-15.0 Kidney/Pancre atic Transplant: 0 to 3 months: 8.0-10.0, 3 to 12 months: 6.0-8.0, >12 months: 4.0-6.0 [facility] Comment on above: Order Comment: Pleas e draw at specified interval PRIOR to dose. Do not hold dose to wait for level. Specimens batched twice per day, (M-F) and once per day weekendsMethod performed is a chemiluminescent microparticle immunoasssay on the [employer] Maintainer i2000.The range is based on experience at [facility] and users should be aware that target concentrations vary widely depending on concomitant therapy, time post-transplant, and desired degree of immunosuppression. Performed By: #### T ACRO ####[facility] (DEFAULT)[address] [place] [address] ALK PHOSPHATASE FRACTIONATED on 08-05-2024 ALK PHOS BONE 206.1 U/L High 12.0-56.7 [facility] Comment on above: Performed By: #### Y ALPFB ####[facility] (DEFAULT)[address] [place] [address] ALK PHOS INTESTINAL 0.0 U/L Normal <=12.6 [facility] Comment on above: Result Comment: Test Performed by:[address] [address]Zln Director: Orlando Cruz Ph.D.; CLIA# [id number] Performed By: #### Y ALPFB ####[facility] (DEFAULT)[address] [place] [address] ALK PHOS INTESTINAL FRACTION 0.0 % Normal <=22.5 [facility] Comment on above: Performed By: #### Y ALPFB ####[facility] (DEFAULT)[address] [place] [address] ALKALINE PHOS, BONE FRACTION 41.8 % Normal 23.8-68.3 [facility] Comment on above: Performed By: #### Y ALPFB ####[facility] (DEFAULT)[address] [place] [address] ALKALINE PHOS, TOTAL 493 U/L High 40-129 [facility] Comment on above: Performed By: #### Y ALPFB ####[facility] (DEFAULT)[address] [place] [address] ALKALINE PHOSPHATASE ISOENZYMES DNR Normal [facility] Comment on above: Performed By: #### Y ALPFB ####[facility] (DEFAULT)[address] [place] [address] LIVER FRACTION 58.2 % Normal 30.2-74.7 [facility] Comment on above: Performed By: #### Y ALPFB ####[facility] (DEFAULT)[address] [place] [address] LIVER I 286.9 U/L High 15.8-71.9 [facility] Comment on above: Performed By: #### Y ALPFB ####[facility] (DEFAULT)[address] [place] [address] B HENSELAE/B FULLER IGG,IG 08-05-2024 Bartonella henselae IgG <1:128 Normal <1:128 [facility] Comment on above: Performed By: #### Y CAT ####[facility] (DEFAULT)[address] [place] [address] Bartonella henselae IgM <1:20 Normal <1:20 [facility] Comment on above: Performed By: #### Y CAT ####[facility] (DEFAULT)[address] [place] [address] Bartonella fuller IgG <1:128 Normal <1:128 [facility] Comment on above: Performed By: #### Y CAT ####[facility] (DEFAULT)[address] [place] [address] Bartonella fuller IgM <1:20 Normal <1:20 [facility] Comment on above: Result Comment: ---- ADDITIONAL INFORMATION This test was developed and its performance characteristicsdetermined by [facility] in a manner consistent with CLIArequirements. This test has not been cleared or approved bythe U.S. Food and Drug Administration.Test Performed by:[address] [address]Uzu Director: Orlando Cruz Ph.D.; CLIA# [id number] Performed By: #### Y CAT ####[facility] (DEFAULT)[address] [place] [address] BARTONELLA, DNA, PCR, BLOODo n 08-05-2024 Bartonella, DNA, PCR Negative Normal Not Applicable [facility] Comment on above: Result Comment: ---- ADDITIONAL INFORMATION This test was developed and its performance characteristicsdetermined by [facility] in a manner consistent with CLIArequirements. This test has not been cleared or approved bythe U.S. Food and Drug Administration.Test Performed by:[address] [address]Hta Director: Orlando Cruz Ph.D.; CLIA# [id number] Performed By: #### Y ANABEL ####[facility] (DEFAULT)[address] [place] [address] BR Source BLOOD Normal [facility] Comment on above: Performed By: #### Y ANABEL ####[facility] (DEFAULT)[address] [place] [address] C DIFFICILE TWO STEPon 08-05 C Difficile By Pcr Negative Normal Negative [facility] Comment on above: Order Comment: C. di fficile toxin gene testing is clinically indicated if a patient has 3 or more watery, unformed stools in 24hrs. Assess patient for common causes of diarrhea such as antibiotics, laxatives, stool softeners, tube feeding, etc. Collect sample in white stool collection vial or sterile containerFor Outpatient collection send refrigerated 2-8?C. For Inpatients please send the specimen on ice Result Comment: This assay detects C. difficile (Toxin B gene DNA) by PCR. Performed By: #### C DIFFICILE TWO STEP ####[facility] (DEFAULT)[address] [place] [address] CALCIUMon 08-05-2024 Calcium [Mass/Vol] 8.6 mg/dL 8.6 - 10. 5 mg/dL [facility] Calcium [Mass/Vol] 8.6 mg/dL Normal 8.6-10.5 [facility] Comment on above: Performed By: #### I PB, HFP, CHM7, MGO, CA ####[facility] (DEFAULT)[address] [place] [address] CBC AND ELECTRONIC DIFFon Basophils (Bld) [#/Vol] 0.05 10*3/uL 0.00 - 0.09 K/uL [facility] Basophils/100 WBC (Bld) 1.1 % [facility] Differential cell count method Nom (Bld) Electronic Differential [facility] Eosinophils (Bld) [#/Vol] 0.05 10*3/uL 0.00 - 0.48 K/uL [facility] Eosinophils/100 WBC (Bld) 1.1 % [facility] Erythrocyte distribution width (RBC) [Ratio] 16.5 % High 10.9 - 14.3 % [facility] Hematocrit (Bld) [Volume fraction] 34.5 % Low 39.6 - 48.8 % [facility] Hemoglobin (Bld) [Mass/Vol] 11.1 g/dL Low 13.4 - 16.8 g/dL [facility] Immature granulocytes (Bld) [#/Vol] 0.08 10*3/uL High NINF - 0.07 K/uL [facility] Immature granulocytes/100 WBC (Bld) 1.7 % [facility] Interpretation and review of laboratory results Abnormal [facility] Lymphocytes (Bld) [#/Vol] 0.7 10*3/uL Low 0.83 - 3.57 K/uL [facility] Lymphocytes/100 WBC (Bld) 15.1 % [facility] MCH (RBC) [Entitic mass] 31.1 pg 26.1 - 33.3 pg [facility] MCHC (RBC) [Mass/Vol] 32.2 g/dL 31.9 - 36.5 g/dL [facility] MCV (RBC) [Entitic vol] 96.6 fL High 79.0 - 94.5 fL [facility] Monocytes (Bld) [#/Vol] 0.44 10*3/uL 0.24 - 0.93 K/uL [facility] Monocytes/100 WBC (Bld) 9.5 % [facility] Neutrophils (Bld) [#/Vol] 3.31 10*3/uL 1.57 - 6.19 K/uL [facility] Nucleated RBC/100 WBC (Bld) [Ratio] 0 % NINF [facility] Platelet mean volume (Bld) [Entitic vol] 10.1 fL 8.7 - 12.3 fL [facility] Platelets (Bld) [#/Vol] 367 10*3/uL High 146 - 337 K/uL [facility] RBC (Bld) [#/Vol] 3.57 10*6/uL Low [facility] Segmented neutrophils/100 WBC (Bld) 71.5 % [facility] WBC (Bld) [#/Vol] 4.63 10*3/uL 3.73 - 10. 10 K/uL [facility] Basophils (Bld) [#/Vol] 0.05 10*3/uL Normal 0.00-0.09 [facility] Comment on above: Performed By: #### L [id number] ####[facility] (DEFAULT)[address] [place] [address] Basophils/100 WBC (Bld) 1.1 % Normal [facility] Comment on above: Performed By: #### L [id number] ####[facility] (DEFAULT)[address] [place] [address] DIFF STATUS Electronic Differential Normal [facility] Comment on above: Performed By: #### L [id number] ####[facility] (DEFAULT)[address] [place] [address] Eosinophils (Bld) [#/Vol] 0.05 10*3/uL Normal 0.00-0.48 [facility] Comment on above: Performed By: #### L [id number] ####[facility] (DEFAULT)[address] [place] [address] Eosinophils/100 WBC (Bld) 1.1 % Normal [facility] Comment on above: Performed By: #### L [id number] ####[facility] (DEFAULT)[address] [facility] [place] [address] Hematocrit (Bld) [Volume fraction] 34.5 % Low 39.6-48.8 [facility] Comment on above: Performed By: #### L [id number] ####[facility] (DEFAULT)[address] [facility] [place] [address] Hemoglobin (Bld) [Mass/Vol] 11.1 g/dL Low 13.4-16.8 [facility] Comment on above: Performed By: #### L [id number] ####[facility] (DEFAULT)[address] [facility] [place] [address] Immature Grans % 1.7 % Normal [facility] Comment on above: Performed By: #### L [id number] ####[facility] (DEFAULT)[address] [facility] [place] [address] Immature Grans Absolute 0.08 K/uL High <=0.07 [facility] Comment on above: Performed By: #### L [id number] ####[facility] (DEFAULT)[address] [place] [address] Lymphocytes (Bld) [#/Vol] 0.70 10*3/uL Low 0.83-3.57 [facility] Comment on above: Performed By: #### L [id number] ####[facility] (DEFAULT)[address] [place] [address] Lymphocytes/100 WBC (Bld) 15.1 % Normal [facility] Comment on above: Performed By: #### L [id number] ####[facility] (DEFAULT)[address] [place] [address] MCV (RBC) [Entitic vol] 96.6 fL High 79.0-94.5 [facility] Comment on above: Performed By: #### L [id number] ####[facility] (DEFAULT)[address] [place] [address] Mean Cell Hgb 31.1 pg Normal 26.1-33.3 [facility] Comment on above: Performed By: #### L [id number] ####[facility] (DEFAULT)[address] [place] [address] Mean Cell Hgb Conc 32.2 g/dL Normal 31.9-36.5 [facility] Comment on above: Performed By: #### L [id number] ####[facility] (DEFAULT)[address] [facility] [place] [address] Monocytes (Bld) [#/Vol] 0.44 10*3/uL Normal 0.24-0.93 [facility] Comment on above: Performed By: #### L [id number] ####[facility] (DEFAULT)[address] [facility] [place] [address] Monocytes/100 WBC (Bld) 9.5 % Normal [facility] Comment on above: Performed By: #### L [id number] ####[facility] (DEFAULT)[address] [facility] [place] [address] Nucleated RBC 0.0 /100 WBC Normal <=0.2 [facility] Comment on above: Performed By: #### L [id number] ####[facility] (DEFAULT)[address] [facility] [place] [address] Platelet mean volume (Bld) [Entitic vol] 10.1 fL Normal 8.7-12.3 [facility] Comment on above: Performed By: #### L [id number] ####[facility] (DEFAULT)[address] [facility] [place] [address] Platelets (Bld) [#/Vol] 367 10*3/uL High 146-337 [facility] Comment on above: Performed By: #### L [id number] ####[facility] (DEFAULT)[address] [facility] [place] [address] RBC (Bld) [#/Vol] 3.57 10*6/uL Low 4.38-5.83 [facility] Comment on above: Performed By: #### L [id number] ####[facility] (DEFAULT)[address] [place] [address] RBC Distribution 16.5 % High 10.9-14.3 [facility] Comment on above: Performed By: #### L [id number] ####[facility] (DEFAULT)[address] [place] [address] Segs + Bands Auto 71.5 % Normal [facility] Comment on above: Performed By: #### L [id number] ####[facility] (DEFAULT)[address] [place] [address] Segs + Bands,Absolute Auto 3.31 K/uL Normal 1.57-6.19 [facility] Comment on above: Performed By: #### L [id number] ####[facility] (DEFAULT)[address] [place] [address], [place] [address] WBC (Bld) [#/Vol] 4.63 10*3/uL Normal 3.73-10.10 [facility] Comment on above: Performed By: #### L [id number] ####[facility] (DEFAULT)[address] [place] [address] CHEM 7 (LYTES,BUN,CREA,GLUC) on 08-05-2024 Anion gap [Moles/Vol] 13 mmol/L 7 - 17 mmol/L [facility] Chloride [Moles/Vol] 104 mmol/L 98 - 10 8 mmol/L [facility] CO2 [Moles/Vol] 22 mmol/L 21 - 31 mmol/L [facility] Creatinine [Mass/Vol] 0.77 mg/dL 0.70 - 1.30 mg/dL [facility] eGFR, CKD-EPI, Male - PINF [facility] Comment on above: Reported eGFR is bas ed on the CKD-EPI 2020 equation using creatinine, age, and sex. Glucose [Mass/Vol] 91 mg/dL 70 - 179 mg/dL [facility] Osmolality Calc [Osmolality] 287 [facility] Potassium [Moles/Vol] 4.2 mmol/L 3.5 - 5.0 mmol/L [facility] Sodium [Moles/Vol] 135 mmol/L 135 - 145 mmol/L [facility] Urea nitrogen [Mass/Vol] 22 mg/dL 7 - 25 mg/dL [facility] Urea nitrogen/Creatinine [Mass ratio] 29 mg/mg [facility] Anion gap [Moles/Vol] 13 mmol/L Normal 7-17 [facility] Comment on above: Performed By: #### I PB, HFP, CHM7, MGO, CA ####[facility] (DEFAULT)[address] [place] [address] Chloride [Moles/Vol] 104 mmol/L Normal 98-108 [facility] Comment on above: Performed By: #### I PB, HFP, CHM7, MGO, CA ####[facility] (DEFAULT)[address] [place] [address] CO2 [Moles/Vol] 22 mmol/L Normal 21-31 [facility] Comment on above: Performed By: #### I PB, HFP, CHM7, MGO, CA ####[facility] (DEFAULT)[address] [place] [address] Creatinine [Mass/Vol] 0.77 mg/dL Normal 0.70-1.30 [facility] Comment on above: Performed By: #### I PB, HFP, CHM7, MGO, CA ####[facility] (DEFAULT)[address] [place] [address] eGFR, CKD-EPI, Male > Normal >=60 [facility] Comment on above: Result Comment: Repo rted eGFR is based on the CKD-EPI 2020 equation using creatinine, age, and sex. Performed By: #### I PB, HFP, CHM7, MGO, CA ####[facility] (DEFAULT)[address] [place] [address] Glucose [Mass/Vol] 91 mg/dL Normal Nonfastin -179 mg/dL; Fastin-99 [facility] Comment on above: Performed By: #### I PB, HFP, CHM7, MGO, CA ####[facility] (DEFAULT)[address] [place] [address] Osmolality [Osmolality] 287 mosm/kg Normal 278-305 [facility] Comment on above: Performed By: #### I PB, HFP, CHM7, MGO, CA ####[facility] (DEFAULT)[address] [place] [address] Potassium [Moles/Vol] 4.2 mmol/L Normal 3.5-5.0 [facility] Comment on above: Performed By: #### I PB, HFP, CHM7, MGO, CA ####[facility] (DEFAULT)[address] [place] [address] Sodium [Moles/Vol] 135 mmol/L Normal 135-145 [facility] Comment on above: Performed By: #### I PB, HFP, CHM7, MGO, CA ####[facility] (DEFAULT)[address] [place] [address] Urea nitrogen [Mass/Vol] 22 mg/dL Normal 7-25 [facility] Comment on above: Performed By: #### I PB, HFP, CHM7, MGO, CA ####[facility] (DEFAULT)[address] [facility] [place] [address] Urea nitrogen/Creatinine [Mass ratio] 29 mg/mg Normal [facility] Comment on above: Performed By: #### I PB, HFP, CHM7, MGO, CA ####[facility] (DEFAULT)[address] [place] [address] COXIELLA BURNETII (Q FEVER) PCR, [facility] 08-05-2024 COXIELLA BURNETII, PCR Negative Normal Not Applicable [facility] Comment on above: Result Comment: ---- ADDITIONAL INFORMATION This test was developed and its performance characteristicsdetermined by [facility] in a manner consistent with CLIArequirements. This test has not been cleared or approved bythe U.S. Food and Drug Administration.Test Performed by:[address] [address]Pwf Director: Orlando Cruz Ph.D.; CLIA# [id number] Performed By: #### Y CBBRP ####[facility] (DEFAULT)[address] [address] Source BLOOD Normal [facility] Comment on above: Performed By: #### Y CBBRP ####[facility] (DEFAULT)[address] [place] [address] EHRLICHIA/ANAPLASMA PCRon Anaplasma phagocytophilum Negative Normal Negative [facility] Comment on above: Performed By: #### Y EHRL ####[facility] (DEFAULT)[address] [place] [address], [place] [address] Ehrlichia chaffeensis Negative Normal Negative [facility] Comment on above: Performed By: #### Y EHRL ####[facility] (DEFAULT)[address] [place] [address] Ehrlichia ewingii/canis Negative Normal Negative [facility] Comment on above: Performed By: #### Y EHRL ####[facility] (DEFAULT)[address] [place] [address] Ehrlichia muris-like Negative Normal Negative [facility] Comment on above: Result Comment: ---- ADDITIONAL INFORMATION This test was developed and its performance characteristicsdetermined by [facility] in a manner consistent with CLIArequirements. This test has not been cleared or approved bythe U.S. Food and Drug Administration.Test Performed by:[address] [address]Utg Director: Orlando Cruz Ph.D.; CLIA# [id number] Performed By: #### Y EHRL ####[facility] (DEFAULT)[address] [place] [address] FUNGAL ID/MICOrdered By: Vidal Chun on 08-05-2024 Bacteria identified Cx Nom (Unsp spec) Growth [facility] Bacteria identified Cx Nom (Unsp spec) NAEEM AURIS Abnormal [facility] Comment on above: Identified by PCR Interpretation and review of laboratory results Abnormal [facility] HEPATIC FUNCTION PANELon Albumin [Mass/Vol] 3.9 g/dL 3.5 - 5.0 g/dL [facility] ALP [Catalytic activity/Vol] 396 U/L High 32 - 126 U/L [facility] ALT [Catalytic activity/Vol] 75 U/L High 10 - 52 U/L [facility] AST [Catalytic activity/Vol] 45 U/L High 10 - 39 U/L [facility] Bilirubin [Mass/Vol] 0.4 mg/dL [facility]F - 1.5 mg/dL [facility] Bilirubin.direct [Mass/Vol] 0.1 mg/dL NINF - 0.3 mg/dL [facility] Protein [Mass/Vol] 6.8 g/dL 6.4 - 8.3 g/dL [facility] Albumin [Mass/Vol] 3.9 g/dL Normal 3.5-5.0 [facility] Comment on above: Performed By: #### I PB, HFP, CHM7, MGO, CA ####[facility] (DEFAULT)[address] [place] [address] ALP [Catalytic activity/Vol] 396 U/L High 32-126 [facility] Comment on above: Performed By: #### I PB, HFP, CHM7, MGO, CA ####[facility] (DEFAULT)[address] [place] [address] ALT [Catalytic activity/Vol] 75 U/L High 10-52 [facility] Comment on above: Performed By: #### I PB, HFP, CHM7, MGO, CA ####[facility] (DEFAULT)[address] [place] [address] AST [Catalytic activity/Vol] 45 U/L High 10-39 [facility] Comment on above: Performed By: #### I PB, HFP, CHM7, MGO, CA ####[facility] (DEFAULT)[address] [place] [address] Bilirubin [Mass/Vol] 0.4 mg/dL Normal <1.5 [facility] Comment on above: Performed By: #### I PB, HFP, CHM7, MGO, CA ####[facility] (DEFAULT)[address] [place] [address] Bilirubin.indirect [Mass/Vol] 0.1 mg/dL Normal <0.3 [facility] Comment on above: Performed By: #### I PB, HFP, CHM7, MGO, CA ####[facility] (DEFAULT)[address] [place] [address] Protein [Mass/Vol] 6.8 g/dL Normal 6.4-8.3 [facility] Comment on above: Performed By: #### I PB, HFP, CHM7, MGO, CA ####[facility] (DEFAULT)[address] [facility] [place] [address] HISTOPLASMA AND BLASTOMYCES ANTIGEN, ENZYME IMMUNOASSAY, SERMon 08-05-2024 Histoplasma/Blastomyc es Ag Result Not detected Normal Not Detected [facility] Comment on above: Result Comment: No a ntigen from Histoplasma or Blastomyces detected. Falsenegative results may occur depending on extent of disease,and/or site of infection. Repeat testing on a new specimenif clinically indicated. Performed By: #### H IBAG ####[facility] (DEFAULT)[address] [place] [address] Histoplasma/Blastomyc es Ag Value Not detected Normal [facility] Comment on above: Result Comment: ---- ADDITIONAL INFORMATION This test was developed and its performance characteristicsdetermined by [facility] in a manner consistent with CLIArequirements. This test has not been cleared or approved bythe U.S. Food and Drug Administration.Test Performed by:[address] [id number] Director: Orlando Cruz Ph.D.; CLIA# [id number] Performed By: #### H IBAG ####[facility] (DEFAULT)[address] [place] [address] HISTOPLASMA ANTIGEN,URINEon 08-05-2024 Histoplasma Ag, Urine Not detected Normal Not Detected [facility] Comment on above: Result Comment: Hist oplasma galactomannan can be detected in patients with disseminated histoplasmosis. A negative results does not rule out histoplasmosis. Repeat testing on a new specimen should be considered if clinically indicated. False positive results may occur in patients with other fungal infections including blastomycosis. Results should be correlated with clinical presentation, exposure history and other diagnostics tests. Performed By: #### Y HISTG ####[facility] (DEFAULT)[address] [place] [address] MAGNESIUMon 08-05-2024 Magnesium [Mass/Vol] 1.5 mg/dL Low 1.6 - 2 .6 mg/dL [facility] Magnesium [Mass/Vol] 1.5 mg/dL Low 1.6-2.6 [facility] Comment on above: Performed By: #### I PB, HFP, CHM7, MGO, CA ####[facility] (DEFAULT)[address] [place] [address] MR Abdomen WO contraston IMPRESSION: 1. Changes from liver transplant and choledochojejunostomy with mild to moderate biliary dilation which could be secondary to narrowing/stricture at the choledochojejunostomy. OLOGY EXAM: MRI ABDOMEN WI THOUT CONTRAST, 08/05/2024 22:23 PM CLINICAL INDICATIONS: s/p liver transplant, increase in LFTs COMPARISON: MRI ABDOMEN WITH AND WITHOUT CONTRAST January 24, 2024, CT ABDOMEN/PELVIS WITHOUT CONTRAST August 02, 2024, CT ABDOMEN/PELVIS WITH CONTRAST June 02, [address] August 02, 2024 TECHNIQUE: Multiplanar, multisequence MRI scanning was performed of the abdomen without contrast. T2 weighted MRCP imaging was performed. CONTRAST: None FINDINGS: Lack of IV contrast limits evaluation of small lesions and lymph nodes. Lung Bases: Limited MRI evaluation of the lung bases is unremarkable. Liver: An status with normal size, morphology, and background signal characteristics. Small T2 hyperintense focus with fluid signal in the right hepatic lobe and T2 shine through, likely a cyst. No suspicious lesions within the limitations of noncontrast evaluation. Gallbladder: Cholecystectomy. Bile Ducts: Status post choledochojejunostomy with mild/moderate biliary dilation the common duct measures approximately 12 mm. Spleen: Normal. Pancreas: Normal. Adrenals: Normal. Right Kidney: Normal. No hydronephrosis. Left Kidney: Normal. Similar mild pelvocaliectasis. Gastrointestinal: No appreciable abnormal bowel wall thickening. Similar prominent loops of bowel in the anterior right abdomen, but the proximal small bowel is nondilated. Peritoneum/retroperitoneu m: No ascites. Lymph nodes: No enlarged or morphologically abnormal lymph nodes. Vasculature: The abdominal aorta is normal in course and caliber. Limited vascular assessment on noncontrast imaging. Body Wall: Post-surgical changes. Bones: Normal for patient age. No aggressive lesion. RADIOLOGY Oumar Isbell MD - 08/05/2024 EXAM: MRI ABDOMEN WITHOUT CONTRAST, 08/05/2024 22:23 PM CLINICAL INDICATIONS: s/p liver transplant, increase in LFTs COMPARISON: MRI ABDOMEN WITH AND WITHOUT CONTRAST January 24, 2024, CT ABDOMEN/PELVIS WITHOUT CONTRAST August 02, 2024, CT ABDOMEN/PELVIS WITH CONTRAST June 02, [address] August 02, 2024 TECHNIQUE: Multiplanar, multisequence MRI scanning was performed of the abdomen without contrast. T2 weighted MRCP imaging was performed. CONTRAST: None FINDINGS: Lack of IV contrast limits evaluation of small lesions and lymph nodes. Lung Bases: Limited MRI evaluation of the lung bases is unremarkable. Liver: An status with normal size, morphology, and background signal characteristics. Small T2 hyperintense focus with fluid signal in the right hepatic lobe and T2 shine through, likely a cyst. No suspicious lesions within the limitations of noncontrast evaluation. Gallbladder: Cholecystectomy. Bile Ducts: Status post choledochojejunostomy with mild/moderate biliary dilation the common duct measures approximately 12 mm. Spleen: Normal. Pancreas: Normal. Adrenals: Normal. Right Kidney: Normal. No hydronephrosis. Left Kidney: Normal. Similar mild pelvocaliectasis. Gastrointestinal: No appreciable abnormal bowel wall thickening. Similar prominent loops of bowel in the anterior right abdomen, but the proximal small bowel is nondilated. Peritoneum/retroperitoneu m: No ascites. Lymph nodes: No enlarged or morphologically abnormal lymph nodes. Vasculature: The abdominal aorta is normal in course and caliber. Limited vascular assessment on noncontrast imaging. Body Wall: Post-surgical changes. Bones: Normal for patient age. No aggressive lesion. IMPRESSION IMPRESSION: 1. Changes from liver transplant and choledochojejunostomy with mild to moderate biliary dilation which could be secondary to narrowing/stricture at the choledochojejunostomy. [facility] Radiology Study observation (narrative) [facility] MR Abdomen WO contrastOrdere d By: Oumar Isbell on 08-05-2024 [facility] Work Phone: MRI ABDOMEN WITHOUT CONTRAST on 08-05-2024 MRI ABDOMEN WITHOUT CONTRAST Normal [facility] No Panel Informationon 08-05 Interpretation and review of laboratory results Normal [facility] Interpretation and review of laboratory results Abnormal [facility] PHOSPHATE, INORGANICon 08-05 Phosphate [Mass/Vol] 2.7 mg/dL 2.2 - 4 .6 mg/dL [facility] Phosphorous 2.7 mg/dL Normal 2.2-4.6 [facility] Comment on above: Performed By: #### I PB, HFP, CHM7, MGO, CA ####U [facility] (DEFAULT)[address] [place] [address] Q FEVER ANTIBODYon 5 Q FEVER ANTIBODY Reactive Normal Negative [facility] Comment on above: Result Comment: Not diagnostic. Sample reflexed to IFAto determine Q Fever (Coxiella burnetii)phase I and phase II IgM and IgG titers. ADDITIONAL INFORMATION This test was developed and its performance characteristicsdetermined by [facility] in a manner consistent withCLIA requirements. This test has not been cleared orapproved by the U.S. Food and Drug Administration.Test Performed by:[place] [id number] Director: Orlando Cruz Ph.D.; CLIA# [id number] Performed By: #### L ABYQFEVT, YQFEV ####U [facility] (DEFAULT)[address] [place] [address] Q FEVER IGM/IGG, TITER, Son 08-05-2024 Q FEVER IGM <1:16 Normal <1:16 [facility] Comment on above: Performed By: #### L ABYQFEVT, YQFEV ####[facility] (DEFAULT)[address] [place] [address] Q FEVER INTERPRETATION SEE COMMENTS Normal [facility] Comment on above: Result Comment: Acti ve Q Fever infections are characterized by a fourfoldincrease in serum IgG between acute and convalescentsamples and/or the presence of IgM antibodies directedagainst phase II organisms. In chronic Q Fever the IgGand/or IgM response is most often directed against phase Iorganisms, resulting in phase I titers that are greaterthan phase II titers.Test Performed by:[facility] [place], [place] [address]Usj Director: Orlando Cruz Ph.D.; IA# [id number] Performed By: #### L ABYQFEVT, YQFEV ####[facility] (DEFAULT)[address] [place] [address] Q FEVER PHASE II AB, IGG 1:32 Abnormal <1:16 [facility] Comment on above: Performed By: #### L ABYQFEVT, YQFEV ####[facility] (DEFAULT)[address] [place] [address] Q FEVER PHASE II AB, IGM <1:16 Normal <1:16 [facility] Comment on above: Performed By: #### L ABYQFEVT, YQFEV ####[facility] (DEFAULT)[address] [place] [address] Q-Fever Phase I IgG Titer <1:16 Normal <1:16 [facility] Comment on above: Performed By: #### L ABYQFEVT, YQFEV ####[facility] (DEFAULT)[address] [place] [address], [place] [address] SURG PATH REQUESTOrdered By: Raquel Colin on 08-05-2024 Addendum g8pyhWSmMYTdmUEgXDSt Nlxhb eUbSRMysKGdO0EjmufxNKumRL 3aOE6sxRdrtUFagDKnKOEsNjC an9trx336kTHaw9hsUIMGboot pQd4yNmkQ84al3R7QrbkA9esE PSwUSyyKGHhBHvyxWKvVUn6PB BhcGVydzEyMjQwXHBhcGVyaDE 4EOHcZN2ntukdTAxwBTzdLDCy hwI4QBFctKNdV1HeWFTxAB3pk jzzHEJ8QMddRQHnUUR3KjMjGW Xzd2Melgq9WqQwgIJyUEfienj caGYcnhgaUOCdJvMaG75BLJic nMWcx9ntz2UcV0hxgPlpSLjnf 2IfjX3zXYjCCRRifnMzYkXnUF LoSVEnKVgjtHj8MG1gRBXgDXB bhefexK5gwSWptLZtoy3vJFEm xxZxKSabQQZgO5xntqcrWL4pA HPzgzoyMLJtCkTssXczavW7LJ AxIAIXhAfaA83maMTduXYyj8q terVeyFSit4CpiEW4JLIyPMYq tBu1vHN1MaFZmXkyiD5ngM3rz KsmnM5coIVraSA4rtcuXOqFUt ksIGluIHNpdHUgaHlicmlkaXp ivLytmhWeMITILCtuSF8lKAjz t9BdM0zyiRpiCPmtbNKzgWQwf 7YnKBDiQRFklE4mEGDjPxzlSM 7qPXIfNYTzZFWcq0GrOQItBFI ytWlwUJ8CNWVYHVngXSPtVZEc qMEzfWTFSF14FIMaV3vaajfqB ZnbBBLwg9FeaU6bqSlfDGpftA 5nu9g5FJWjDSOFCSQbEQUtPVT 9IAMbZMJjWJZgLJ4iOr4yPQsb Ug4uXTA0IOalZ66awN3buFQnE H2WUMKvGuAcOrNyNZpnNQrtrM Ntz6PpdJ3oUYMnSG93AHhQOda zyUOneKHbo8LmYSBtZUTjjY3b JWNhDlowNZ7jCYWhVKCkKIVtq 7KrFUIwLWMfgKmrKI9YNLTAZG pcAVYqWRCkcQPqtVYHYM89IKA hV8fgwxqwMVtqOPLcq1FwkY7e yPuvJtHqJVulKLh9bKOkw83uQ CCjHMPWMmHuUZGbQVD0AS43ME nuE41irQ9dpLQpCJ9WVAAbZjD iDmLWkZwsyANnhAUcmbHrj8U9 TEVatYRiJDgqHMneSJY9SDIhv nHJPW3YPExraLJ8CZYze4CrJc TqmaEojERvyjEuINI5XG9bISZ qkKFjvoYhXTY8YIQfWMRWAqCB z29vBBMbDTLEaxKoMTTapZxhs DN4toK5dL3dFUrGUYWnVwOObQ FyoUJhc3WcqE1efXTkjzVfIFs 2aKP2PQVjgC0fLQIpF6jPYTYc vgVtaNDvsXTrTFZwcU7dpXBzF r0yoIZefZtdGVDbpKRhPYzndU cdrZSfsOkjHf0nQZytYVPrw1W jUWKqXSK3t3FhQLTykpPbsJta sUGgvWYhnWAxi6Ucbu7kVSjlp RHpyM54dRPffr48TCXhVBHdR1 FyZGVkIGFzIGludmVzdGlnYXR qa59ufYTiahTkx0MvydIgOWOp Z7zfULqzTLH0 [facility] Work Phone: Case Report Surgical Pathology R eport Case: [id number] Authorizing Provider: Dipak Banerjee MD Collected: 08/03/2024 01:12 PM Ordering Location: [facility] Received: 08/03/2024 02:23 PM Pathologist: Raquel Colin MD Specimens: A) - TISSUE, ileal polyp-forceps B) - TISSUE, random pouch bopsies-evaluate for pouchitis, r/o CMV [facility] Work Phone: Clinical History j7tsbGDiCWJeoVGaNEFr Nlxhb fLcQLLvaBGkK9AmffxhVCgdVS 6pAV3ggYsduRMkjGYwNADzSpU rl9ljy981mYMqp6keINMNpdsw yQg5oShyG43qg0M6FgigA4bhQ ZFrBMkgINRvCZjugRNwKIn0FO BhcGVydzEyMjQwXHBhcGVyaDE 9ZURmMG4rvuxoVEmoUSkfYPNd vdJ5GMIutWCjM8TqTARdAR9qs gdgJED2GUowMAYgXKB2WjMwNF Fic2Joycd6VcKyrJc6n0edPMY aYBQgxYida5fsRWR2VNBqoKJi X9wfzA1rIJCkMR9mfaxnb1eyD SkyLMkiJSNgbKH4nuB7NEBjtG VhG7NasI1xTEJuYFRuysKpgVr jlY0oCtLbGTakHgCzWOTwtVBf fOPdXq5lAIHzeUYkpNShxg8aZ KHqyxOEXYZgECSDLAMkG4RpQL hcz2Guzop8OLGWgQNpjcE3eNX nPXMexTa4cDXbPHWXdwhgVQD1 THEbvCYyx3YpsrmnP7bhdKGkP 8v8uICgUMIUd6vymsQjFQ7lST EaLRSVwUHklA1zwFMdp1KxmHa 5ZGRxnr94USG9BJQ4wfNstAXt rL1lDwWxzYWueT== [facility] Work Phone: For Immediate Release to Patient's MyChart? Yes Yes [facility] Work Phone: Gross Description f9ujrKBpPFHtv4iyQHDs bGFuZ zEwMzNcZnRuYmpcdWMxIHtccn KnFPjnzKquYLIhICArIF1seXk hoVq0mXjmZQOruzM8tTNwIIxc b3hkUBS5y3hetrjyYLOwDRvpO f2alQYebZpjOsJpKAIpCAq2tT 96SSSibT3mkORySWf9ZPHxfDN hjrUpPvIaUDNutWJvzTP8CJKq PS5qrlolWTkcQJsfNIOeyuR0C PSnoXYcW8ZnHDIdMI9ktzzcFQ F6PPjiOPZcQLS6RzHcYFStn2K ebut5EzJrcRGjZBcmpYLltpix czIwICAgVGhlIHNwZWNpbWVuI FhsAYTpI4NxykHaHDljOPX6ot Xmij6wRXXvfKKuGOJfyVIwRNT bhlFtxM2dddCor5b3qKZ1bNRc rBB9tTZehGxhCP2dhCZbQO9dR NFnC8Ejn7ufwvPktT9rGEFbXC xwYXJccGFyIEEuXHRhYiBUaGU qa9DlH8zyCO3lePMeIYYwgHjs SEKlSLEffCilPGzwlJ0ixDRxF SJvl0GeOYNjNkDaxhAmG69xa9 jgaWLzn7Lba60wTNGsPfIcnWE rELCstdVpj16wp2JyxEmnm5Ix IHdoaWNoIGlzIDAuMyBjbSBpb gXbvmVuiWYptDBjqT6siiHht0 4uICBURSAxIFxwYXJccGFyIEI pRCBnrOXnAKRbUYQwoXHasH3b fzDfpsSyYNPdN50dxCMvVEEsN N3sk27xcC91Q6hgSp5mk6xxrs HnPZM8LRz5IUNvVGQgkeQze5O klLh7nCQmYCWspnALYEIjLTJf YJOde57xlBJ9jzSsDvNtiSwpX pTfR15hdiYuXN4aMTXhos6adO 8jHXGjXpZlaAoyn4ZrZOMutc1 tKVJcUpX3aVV2rkDhKaSdS68a fA8zX9FfCAFiv8QtEAvvOV8rk C9uAeCaBYXgTSOcfBRdJJVyye KENKQkIVMeUL4jvEt6QFtwMrm CSMCkKoR7AMC6BUuhRYTfyu23 QXP2MnPxs6C2VGMwDjYpDQPaU B8xdAtmHKHwOM3cQADxK5kteM 6yduh9KeNmBUJsPdN7UONlgdV 3Nyo6NLXmAZzsc4qpk2PiAVHy JAl1rJibDqPgWMQhh0xgysJfU bOgATPyYKUhOAJyiCBtT505w4 wlo4qjbwZgqCH2EYWyWZF8XLb jkpVwtpT2DHdpkWFdJdW3UYwq jbUjRSinhkTbedXsZnu3LSShQ 852PFX2pAdpt1gsITE5WRMdKU GeMzXbUw3ooAWuQ771MZVwEMJ MAEVfcPm2VRVzvwAdcxKzzIKK t251K276i8ciILAakiDqqMqAl gmey3hgM989PRJjjVUgdyDaDx CsBDGorVUnoCN3FYHtTJ1efeb xQOwsZLotEAPmkpI2FIVgjNRt F6RlSOMeCL4vmornCPK0GBhyR IZcWEC6XfGrSFMxt8Rngfm3Ha Rdmg4ncw75OST5j7OmeUguQTH 5GIC4JvEwSz2awZZiYFJnAA2f BdSxxMSaDXHvqe72uGycEOmpc jUqlU2jRlLhRLCfrGRqUYAyNE 5joIYyTIWzxI8noxmbNSFrBmZ tcxyrHPPkmXvwqgIvZr4okFec XTH3EDvzG6abgG5eFtI1XHibS 6gguB8pSBc5DScxtZW4CMAqmC 9mNJ5swuovm6ncDEzyMCrcWKZ fomW1btV5RCEidFWbF1CdgZ1a KYTsQT9ychoup1iuHMS7PTmfZ BEtGEZ0QgEjXCOmo6Krkfq1We Xho3RnsEEpKDkqM21xt314JYU iwrHuW0fxhZJsvqbcsBDvefzg NYatkqS7WZXpIZFfCTqoBYXlA GZzMjJcbGFuZzEwMzNcaGljaF gxIRmbZqUaSXUuQEroB6meKlE jFsQeDuVTdo9bi7VzCVZaayX3 aChbWKTqt6Lce5ItTuZJCWc0e LwbDIJyzXzrCjOqoh5bkUOowQ 0= [facility] Work Phone: Images [facility] Work Phone: Microscopic Description q4oaeHIhXWOeoDYmHZLeZktxy sNjQHIftAMdT1XziaaqDObjZP 5gXX5hhAgpjTHrfLMgEMFaExL nx8yaa047yHKio7szGSNDyhwl mFb9gEgeT69ed0D0UpbgB99xm JXeYNB9PJYlSANdkPGcWLNrPB Z9VGGdhAHmU3ggMSWeXC3chnc xFUmdOZxkIOOfpBS9RNYkqFKw S3PyMKNeHPodZIAincf5LmUuK c2jxDWjyTefFOizDPKjJNXqHL psIVAhYmWvAANssBUee1Nyr6T uNpNgsGGkwQ9gwYwdndG1TRPl sLEnOx9ghSKeEaJskPMqiS== [facility] Work Phone: Pathologic Diagnosis o3osjWFsLUCkaXDeLWM wNlxhb pPeLDKpbMHrP7WrngkgLKcoYP 9kFJ6feVymfSEauSLgUUGmQbS rq2sjc138lGIwa5ytGNIPsycy vNw8j6ljLMRJdZ2qu9h5aI96J GJyjO8wlMDjLQxavrXiZPtzdv IpcvMqCrl7VIW6tSpaWxhqzOR 7wDPndXT5BJhmw8VyuGiidVqx VdV3TNIqOQEwYAdqu6Y3GE1dz DS4VRxuNYC0EMroy7UdTB5tPT c0MOerp3MpyRAgoSA8TAafb8A sXHEvpBvpDNWfmW4yGpYcXZqo dmVsbmZjbjIzXGxldmVsamMwX FohybBqt6VpedQtlUK5KYcoxo ThzIO3dMcjWOWuW2V0E112GJj rylTlhuXyRlTiqkm0HQAzBRIe BbBriHthGuJfFjjbNOJ9w4law DC6eJK2IZancRL7HJelKbQtJ3 cgVETltE0fE91bT7vtUDIfvWu tFQodRRPhiNG9CEB2TBQot8en EANwmMXbmRReByBfEFgfVji7q 8ayDPQhwJ32pCWtpoU7gIewBC xmczIwfXtcbGlzdGxldmVsXGx eyvMpsxKsNqAhlGZ5YGiaOdWc XyXwmDV0SYllFcSufKB0FYfkz BMkiUM3OQdhhTG8IMt2FVa2WG juBHjnWow0oVlqaCE6MAujxK7 gTTFbH90pFoIzGbNnAM79VWhg h9RdYRYlcYvhZPDpwV5oGaPyJ GxldmVsbmZjbjIzXGxldmVsam ZjXNbxqeAki0EhioLvyIA4HSu qjgIhyUK2jYsjGSMhS4F1X263 IEkffyAfgvRzXbDgtiw7QXQuP XLtPpN0k8ylqUI4hNR9MJsvvK C7ZHkgTeRkF4zoMSVcqC6hN89 fZ7ubEYKqsJlwLJrpIXNvnDH8 VQJ0QOAmj4xkLCDvmKMjuJAgQ mNzJCixIva4f1eyDJXtnY75lC KnqwM9mEhgBUaaqcCstOxhpVw zdGxldmVsXGxldmVsbmZjMjNc hZA1JDrjEjMrQqXfnSN5ZGjqS pOzuAI5TYpefJNyhJX2QQxuiN K4QTx0MBq0ABbjDJlnOuw0vCr zuCD1BJleyD5kKBOmE19zMhCk ThYpNS27IJnfm3XpIZSpuQwiO JQpqM5dZyGqIRotldLktlFecf AfYVbcikGvbcXoBIljskMzc4E tdqMyfJZ7BMydhgEniRW2pEdl LPVqH0Q6B690DMykccOpgcFgL pXiuce7BMScIEDoEvV8c1whnY A3mRZ0WZmdaEN6DThiUvIkY9t nRCEqtF4jP35vU0atNVMyaYcx WHkaKSWtbDM7XYZ7NJIgz4mjX TRowRXquSQdZgXrKFtzUax5z2 quSKEorL87nPSbidR5yUucCKt mczIwfXtcbGlzdGxldmVsXGxl ywKxarSjLmCgpBF7REzpUaMdY vIjwYZ9IJasPrEmdFC9QTdkvS RzjVS2ZFvxzVA8EZq6ZWi0INd fMEuoIdk2rBlleBU7EMxnfL4j PNEpA38lBaPoRzVdBO51w5egd OL3JEeee5KfBST8DUFrZFymAw lcbGlzdHRlbXBsYXRlaWQtMXt cqKqnyR3ckHWqJ81luTlusBy4 YnJpZHtcbGlzdGxldmVsXGxld tYuagXiTdVqdYC6ZPkmHjQuNv KckWS6XFnbRhEzaAM1NMzltBE anNG4XNqxlMK8MEc9EBq9WCnc RYgoWsh8cJbbbZB6CSancO0fZ APfM63vFrVqMnWcBTmnzTS4VF jccUD0VL18CTvha1CgCVWxmMb rDPBvsT7zCbRbEUchhxAqmxOt bjIzXGxldmVsamMwXGxldmVsc 5QhkiVyoZN1YDyhmeYvwNI5gD jmIIGiL1Q6B984NLrxegIayuD yTvPwprw5HBNvKRFlLsC1w8is iLO4bGF9JBhrhWN6CQssVrCfZ 4uqBIWraG7nA26gQ6piZRSuxW ogEZbtCWVljOL5XXA7ATKjv1j sZXZlbHRleHRcJzAxXCdiNzt9 a7rzMPStfC99pSPvqvR3rJzxG VxmczIwfXtcbGlzdGxldmVsXG hvgtPrrnPxGfShcKK5MHxbUlS dMzRtsCX4MWmzUmWzfSW3PXiq yMQwuIN4ZFtcuIT6PJv7ETk8K OmvEYbmFnf8jZlyiCU9FCvabY 6zQCLcC84vBpDvWmWnBF15YCo ev2VbFTArpEomMVIxfL5rKfPs XGxldmVsbmZjbjIzXGxldmVsa mJjSLjsetByo8WiqhHomNT8RX pcztQzlET0rFnxEMSwN8N3B74 8NCaxdoCngvFjOoYeyik8NTMe WEOvVoN8i0gogHN2dHT0MYtqo UF5YFixQiWzO1gyLMOoiX4sM4 3eW0aqEPKnnLdnRFdsQBZfcQY 2JHY2JSAph1qpURBnmODetAVn SbHoQXhwZxd9d5fsYOSzsB51v MBmdoA3wConLCbfdlIidKvbxK lzdGxldmVsXGxldmVsbmZjMjN qyEH6BClnQgInYoNbvET0FMlz GjVjiQM0AUmjmUNslQJ5VNrnt TC4OEk8AWe5ZOigRTqgWfp1hY obrNK1YVpuhP4fMMNzD66rAjO kUoEfFM68TLgco6PsDUAydCbk HTOneC4mDjTpWMweabJtmfYlk jIzXGxldmVsamMwXGxldmVsc3 SdmaBhtQD0IHcyhcRveDD4jCz aHVUrW7V5D175KPxjtuBbvjVu GpCakps9KLXwUZQpFgI6o3pdj JK8jBJ2DUtbuGF9PVzcLzMxK9 crGQVjlG6vY28vG5kiHJZmkJv oCCvkGSMgkUK1YYW2IQFje1xq PINoqIKkrKMfQuUpAYjlUkv3f 4rwSWUwyU78zTZyduY7wKsbXY cgtlGxiC30v8twDZrle6BvkxU idgtrXQSdYntfk2grIVrju2Eu iqFowfkkIXrowBD3jXVpADa9S dI9ChJbbAjkxE21YXMkwMUuN1 07buFjWBmyPK07KNpxmMgnwO1 7HYJitEElCAnut0MnXRH5QCOt QPxcJbvmjYusoQ64GKJmfJXmA 823kyXwSJnrEx54TOWbrTNoep HiTnGpYAJxeLVzaLL2EBIkGU7 wbrqtOSahDUcfCYKssgY4INHt bUEjM6LmXCZmMR6mudpiZKZ0O ZflTIIhZZV6IzTvEALjj7Ptrb i3KfZvbEGsMGesdAVqpjrjPSC cReZzW5UbHCSqDWBwQTrpDPua fBPabQdkFMtkbXjxtJ1kMXUxz GetVTVxzU7yk0p7YZIgnzhczT T3PJnwaDL3MOfeaF2yLoKadVU xXGlsdmwwXHBsYWluXGJcZnMy APhbFnMtCP9xnDJjcGFczC43G XM1rA9pxTKyuKPws0QtTS6dIF PuI63aAataSW23JOOvmTqdyN6 ebHTxM0rmsuwkJYCddsHFEOcf fRf9MHZgf6VmTVldcYvbu8qkX PAtqclpfKpsKROnEZzydI26UB rzegEllVRlLWfvWTvyyK0yXMX uIFNtYWxsIGludGVzdGluZSwg qA40R6cuRNGdtpHxdGcvRalwo LM2AgwsVDSuxGpzUpAoJcesWP BcbGluMzYwXGxzMlxpbHZsMFx ufSFtzdtaAHJjFeYgL4PhMJnn sOLhdMgiFWwhlRXkb5QyJXhzk JbpQu6lCWpunWblkR3kaPKkS6 Z9JASgbkKfAP1tBQWso83hlHR cBI2aM9A7nIGzNVEpqxLstPFx bGFzaWFccGFyfQ== [facility] Work Phone: Professional Interpretation Performed at: n9alwABeUCGxfOCtDfVnMXFlZ HRfo7guBZWcnFItPiWcTtMrSa SrVdqqtHRuHRNoIgSfo7rxr38 1jLCjk3piTPYnAyJ6hPAiNVQi nBBbT094FFZaGTbzp5xlz7SbK TBklZSuv9Z9HCQTlkprkNc5yR gzT22ix8K2OgyuN3grULNiSCH pM2OyRL7oWMQjGfh6WIA7KHQ2 DILmWWDlT3KaPK7kVOEddKChX Iw3p2qgmLhsXWYbYMR6t0ocJV fzaeDdYW2ldb6hnIx5t4yvaaJ lRSYfHZGgaCNXVZTrK0GhhOgz Mg6crTs6qQslHlskMFU1Jcn4B L7jwu38ztp5jSuhNXKbwaixNe W5ZRacJXXcrsrvJCt1RFwxXUL ocWU8KSIzxUNzC8CmGRJlSZ6r wui1ETF5OYziEETyTiI3VUBna WReZLGvkLfzULrjs752YFI6It QfMQ1fG2Ays7H2eS5bkPGbHXF qyNPiCzUvUNRrcl6dlWTvPZrw k9UgHSK7lfT8lVFlvMLdGGBjW S02Ozgjw7GzDjuoHIO9CUYcwg Iim6Dae6zcQuZnweMiA6atY1X jTYMcLJLfYQJwWgFcdmOet5Qv m9BxkFBemBf3a8znXZLuIKSgh Nkac6doAJT0SHFyF2M8cRMrd9 keIJipVLIjvCH1avF8VSTuwXT nI9SmgN2yPWKyWI4yrxv0j4ya AZM0FDywTHQvDkX8lcG3UIZvf DVdAELgqBshVHxts383CDR1Af GpAUBie5LrT6LvoUmtZ42uoYi mY32jIIOyrKhkpA5alQwurZ7k ZjBcZnMyNFxwYXJkXHBsYWluX GYxXGZzMjJcbGFuZzEwMzNcaG ffoMhzPDltUhHxNUEgJStlS2h rPtChSxIvSiKNJ8EnJ1JYQfTN IP2NPQpXKPspG7BGEQFGMAOBW O6JM7AUYOlDAu3RXBEMXxfbsU UvONOqFLKOOCG3YXKejMzyMKY jCSIiuiAQu3t4vRD1ecgeF9dq rjP4CoTpPOwaOSW2 [facility] Work Phone: [facility] Work Phone: TACROLIMUS LEVEL, TROUGH (PA E DRUG LEVEL)on 08-05-2024 Tacrolimus (Bld) [Mass/Vol] 5.9 ng/mL Bone Marrow Transplant: 5.0-15.0 Kidney/Pancre atic Transplant: 0 to 3 months: 8.0-10.0, 3 to 12 months: 6.0-8.0, >12 months: 4.0-6.0 [facility] Method performed is a chemiluminescent microparticle immunoasssay on the [employer] i2000. The range is based on experience at [facility] and users should be aware that target concentrations vary widely depending on concomitant therapy, time post-transplant, and desired degree of immunosuppression. [facility] Tacrolimus, Trough 5.9 ng/mL Normal Bone Veronique ow Transplant: 5.0-15.0 Kidney/Pancre atic Transplant: 0 to 3 months: 8.0-10.0, 3 to 12 months: 6.0-8.0, >12 months: 4.0-6.0 [facility] Comment on above: Order Comment: Pleas e draw at specified interval PRIOR to dose. Do not hold dose to wait for level. Specimens batched twice per day, (M-F) and once per day weekendsMethod performed is a chemiluminescent microparticle immunoasssay on the [employer] i2000.The range is based on experience at [facility] and users should be aware that target concentrations vary widely depending on concomitant therapy, time post-transplant, and desired degree of immunosuppression. Performed By: #### T ACRO ####[facility] (DEFAULT)[address] [place] [address] CALCIUMon 08-04-2024 Calcium [Mass/Vol] 9 mg/dL 8.6 - 10. 5 mg/dL [facility] Calcium [Mass/Vol] 9.0 mg/dL Normal 8.6-10.5 [facility] Comment on above: Performed By: #### H FP, IPB, CHM7, MGO, CA ####[facility] (DEFAULT)[address] [place] [address] CBC AND ELECTRONIC DIFFon Basophils (Bld) [#/Vol] 0.05 10*3/uL 0.00 - 0.09 K/uL [facility] Basophils/100 WBC (Bld) 1.2 % [facility] Differential cell count method Nom (Bld) Electronic Differential [facility] Eosinophils (Bld) [#/Vol] 0.04 10*3/uL 0.00 - 0.48 K/uL [facility] Eosinophils/100 WBC (Bld) 0.9 % [facility] Erythrocyte distribution width (RBC) [Ratio] 16.7 % High 10.9 - 14.3 % [facility] Hematocrit (Bld) [Volume fraction] 39.8 % 39.6 - 48.8 % [facility] Hemoglobin (Bld) [Mass/Vol] 12.3 g/dL Low 13.4 - 16.8 g/dL [facility] Immature granulocytes (Bld) [#/Vol] 0.04 10*3/uL NINF - 0.07 K/uL [facility] Immature granulocytes/100 WBC (Bld) 0.9 % [facility] Interpretation and review of laboratory results Abnormal [facility] Lymphocytes (Bld) [#/Vol] 0.51 10*3/uL Low 0.83 - 3.57 K/uL [facility] Lymphocytes/100 WBC (Bld) 12 % [facility] MCH (RBC) [Entitic mass] 31.1 pg 26.1 - 33.3 pg [facility] MCHC (RBC) [Mass/Vol] 30.9 g/dL Low 31.9 - 36.5 g/dL [facility] MCV (RBC) [Entitic vol] 100.8 fL High 79.0 - 94.5 fL [facility] Monocytes (Bld) [#/Vol] 0.35 10*3/uL 0.24 - 0.93 K/uL [facility] Monocytes/100 WBC (Bld) 8.2 % [facility] Neutrophils (Bld) [#/Vol] 3.27 10*3/uL 1.57 - 6.19 K/uL [facility] Nucleated RBC/100 WBC (Bld) [Ratio] 0 % NINF [facility] Platelet mean volume (Bld) [Entitic vol] 10.3 fL 8.7 - 12.3 fL [facility] Platelets (Bld) [#/Vol] 341 10*3/uL High 146 - 337 K/uL [facility] RBC (Bld) [#/Vol] 3.95 10*6/uL Low [facility] Segmented neutrophils/100 WBC (Bld) 76.8 % [facility] WBC (Bld) [#/Vol] 4.26 10*3/uL 3.73 - 10. 10 K/uL [facility] Basophils (Bld) [#/Vol] 0.05 10*3/uL Normal 0.00-0.09 [facility] Comment on above: Performed By: #### L [id number] ####[facility] (DEFAULT)[address] [place] [id number] Basophils/100 WBC (Bld) 1.2 % Normal [facility] Comment on above: Performed By: #### L [id number] ####[facility] (DEFAULT)[address] [place] [address] DIFF STATUS Electronic Differential Normal [facility] Comment on above: Performed By: #### L [id number] ####[facility] (DEFAULT)[address] [facility] [place] [address] Eosinophils (Bld) [#/Vol] 0.04 10*3/uL Normal 0.00-0.48 [facility] Comment on above: Performed By: #### L [id number] ####[facility] (DEFAULT)[address] [place] [address] Eosinophils/100 WBC (Bld) 0.9 % Normal [facility] Comment on above: Performed By: #### L [id number] ####[facility] (DEFAULT)[address] [place] [address], [place] [address] Hematocrit (Bld) [Volume fraction] 39.8 % Normal 39.6-48.8 [facility] Comment on above: Performed By: #### L [id number] ####[facility] (DEFAULT)[address] [place] [address], [place] [address] Hemoglobin (Bld) [Mass/Vol] 12.3 g/dL Low 13.4-16.8 [facility] Comment on above: Performed By: #### L [id number] ####[facility] (DEFAULT)[address] [place] [address], [place] [address] Immature Grans % 0.9 % Normal [facility] Comment on above: Performed By: #### L [id number] ####[facility] (DEFAULT)[address] [place] [address], [place] [address] Immature Grans Absolute 0.04 K/uL Normal <=0.07 [facility] Comment on above: Performed By: #### L [id number] ####[facility] (DEFAULT)[address] [place], [place] [address], [place] [address] Lymphocytes (Bld) [#/Vol] 0.51 10*3/uL Low 0.83-3.57 [facility] Comment on above: Performed By: #### L [id number] ####[facility] (DEFAULT)[address] [facility] [place] [place] [address] Lymphocytes/100 WBC (Bld) 12.0 % Normal [facility] Comment on above: Performed By: #### L [id number] ####[facility] (DEFAULT)[address] [place] [address] MCV (RBC) [Entitic vol] 100.8 fL High 79.0-94.5 [facility] Comment on above: Performed By: #### L [id number] ####[facility] (DEFAULT)[address] [facility] [place] [address] Mean Cell Hgb 31.1 pg Normal 26.1-33.3 [facility] Comment on above: Performed By: #### L [id number] ####[facility] (DEFAULT)[address] [facility] [place] [address] Mean Cell Hgb Conc 30.9 g/dL Low 31.9-36.5 [facility] Comment on above: Performed By: #### L [id number] ####[facility] (DEFAULT)[address] [place] [address] Monocytes (Bld) [#/Vol] 0.35 10*3/uL Normal 0.24-0.93 [facility] Comment on above: Performed By: #### L [id number] ####[facility] (DEFAULT)[address] [facility] [place] [address] Monocytes/100 WBC (Bld) 8.2 % Normal [facility] Comment on above: Performed By: #### L [id number] ####[facility] (DEFAULT)[address] [facility] [place] [address] Nucleated RBC 0.0 /100 WBC Normal <=0.2 [facility] Comment on above: Performed By: #### L [id number] ####[facility] [facility] (DEFAULT[facility] [place] [address] Platelet mean volume (Bld) [Entitic vol] 10.3 fL Normal 8.7-12.3 [facility] Comment on above: Performed By: #### L [id number] ####[facility] (DEFAULT)[address] [place] [address] Platelets (Bld) [#/Vol] 341 10*3/uL High 146-337 [facility] Comment on above: Performed By: #### L [id number] ####[facility] (DEFAULT)[address] [facility] [place] [address] RBC (Bld) [#/Vol] 3.95 10*6/uL Low 4.38-5.83 [facility] Comment on above: Performed By: #### L [id number] ####[facility] (DEFAULT)[address] [facility] [place] [place] [address] RBC Distribution 16.7 % High 10.9-14.3 [facility] Comment on above: Performed By: #### L [id number] ####[facility] (DEFAULT)[address] [facility] [place] [address] Segs + Bands Auto 76.8 % Normal [facility] Comment on above: Performed By: #### L [id number] ####[facility] (DEFAULT)[address] [facility] [place] [place] [address] Segs + Bands,Absolute Auto 3.27 K/uL Normal 1.57-6.19 [facility] Comment on above: Performed By: #### L [id number] ####[facility] (DEFAULT)[address] [facility] [place] [address] WBC (Bld) [#/Vol] 4.26 10*3/uL Normal 3.73-10.10 [facility] Comment on above: Performed By: #### L [id number] ####[facility] (DEFAULT)[address] [place] [address] CHEM 7 (LYTES,BUN,CREA,GLUC) on 08-04-2024 Anion gap [Moles/Vol] 14 mmol/L 7 - 17 mmol/L [facility] Chloride [Moles/Vol] 105 mmol/L 98 - 10 8 mmol/L [facility] CO2 [Moles/Vol] 22 mmol/L 21 - 31 mmol/L [facility] Creatinine [Mass/Vol] 0.94 mg/dL 0.70 - 1.30 mg/dL [facility] eGFR, CKD-EPI, Male - PINF [facility] Comment on above: Reported eGFR is bas ed on the CKD-EPI 2020 equation using creatinine, age, and sex. Glucose [Mass/Vol] 92 mg/dL 70 - 179 mg/dL [facility] Osmolality Calc [Osmolality] 290 [facility] Potassium [Moles/Vol] 4.9 mmol/L 3.5 - 5.0 mmol/L [facility] Sodium [Moles/Vol] 136 mmol/L 135 - 145 mmol/L [facility] Urea nitrogen [Mass/Vol] 23 mg/dL 7 - 25 mg/dL [facility] Urea nitrogen/Creatinine [Mass ratio] 24 mg/mg [facility] Anion gap [Moles/Vol] 14 mmol/L Normal 7-[address] [facility] Comment on above: Performed By: #### H LORI JOSEPH, YISSELM7, MGO, [place] ####[facility] (DEFAULT)[address] [place] [address] Chloride [Moles/Vol] 105 mmol/L Normal 98-108 [facility] Comment on above: Performed By: #### H LORI JOSEPH, CHM7, MGO, CA ####[facility] (DEFAULT)[address] [place] [address] CO2 [Moles/Vol] 22 mmol/L Normal 21-31 [facility] Comment on above: Performed By: #### H JAKE IPEd, CHM7, MGO, CA ####[facility] (DEFAULT)[address] [place] [address] Creatinine [Mass/Vol] 0.94 mg/dL Normal 0.70-1.30 [facility] Comment on above: Performed By: #### H FP, IPB, CHM7, MGO, CA ####[facility] (DEFAULT)[address] [facility] [place] [address] eGFR, CKD-EPI, Male > Normal >=60 [facility] Comment on above: Result Comment: Repo rted eGFR is based on the CKD-EPI 2020 equation using creatinine, age, and sex. Performed By: #### H FP, IPB, CHM7, MGO, CA ####[facility] (DEFAULT)[address] [place] [address] Glucose [Mass/Vol] 92 mg/dL Normal Nonfastin -179 mg/dL; Fastin-99 [facility] Comment on above: Performed By: #### H FP, IPB, CHM7, MGO, CA ####[facility] (DEFAULT)[address] [facility] [place] [address] Osmolality [Osmolality] 290 mosm/kg Normal 278-305 [facility] Comment on above: Performed By: #### H FP, IPB, CHM7, MGO, CA ####[facility] (DEFAULT)[address] [facility] [place] [address] Potassium [Moles/Vol] 4.9 mmol/L Normal 3.5-5.0 [facility] Comment on above: Performed By: #### H FP, IPB, CHM7, MGO, CA ####[facility] (DEFAULT)[address] [facility] [place] [address] Sodium [Moles/Vol] 136 mmol/L Normal 135-145 [facility] Comment on above: Performed By: #### H FP, IPB, CHM7, MGO, CA ####[facility] (DEFAULT)[address] [place] [address] Urea nitrogen [Mass/Vol] 23 mg/dL Normal 7-25 [facility] Comment on above: Performed By: #### H FP, IPB, CHM7, MGO, CA ####[facility] (DEFAULT)[address] [facility] [place] [address] Urea nitrogen/Creatinine [Mass ratio] 24 mg/mg Normal [facility] Comment on above: Performed By: #### H FP, IPB, CHM7, MGO, CA ####[facility] (DEFAULT)[address] [place] [address] CMV BY PCR, QUANTITATIVE, BL OODOrdered By: Felicity Marino on 08-04-2024 CMV DNA JACKY+probe (P) [Log units/Vol] [facility] CMV DNA JACKY+probe Qn (P) [facility] Interpretation and review of laboratory results Normal [facility] This test was perfor med using a real time PCR assay. The dynamic range for this assay is 34.5-10,000,000 IU/mL (1.54-7.00 Log IU/mL). [facility] EBV BY PCR, QUANTITATIVE,BLO ODOrdered By: Flaca Hinojosa on 08-04-2024 EBV DNA JACKY+probe (Bld) [Log units/Vol] [facility] EBV DNA JACKY+probe (Unsp spec) [#/Vol] [facility] Interpretation and review of laboratory results Normal [facility] This test was perfor med using a real time PCR assay. The dynamic range for this assay is 35-100,000,000 IU/mL (1.54-8.00 Log IU/mL). [facility] HEPATIC FUNCTION PANELOrdere d By: Ana Young on 08-04-2024 Albumin [Mass/Vol] 4 g/dL 3.5 - 5.0 g/dL [facility] ALP [Catalytic activity/Vol] 476 U/L High 32 - 126 U/L [facility] ALT [Catalytic activity/Vol] 72 U/L High 10 - 52 U/L [facility] AST [Catalytic activity/Vol] 51 U/L High 10 - 39 U/L [facility] Bilirubin [Mass/Vol] 0.4 mg/dL NINF - 1.5 mg/dL [facility] Bilirubin.direct [Mass/Vol] 0.1 mg/dL NINF - 0.3 mg/dL [facility] Interpretation and review of laboratory results Abnormal [facility] Protein [Mass/Vol] 7.1 g/dL 6.4 - 8.3 g/dL [facility] Comment on above: Results inconsistent with previous results [facility] HEPATIC FUNCTION PANELon Albumin [Mass/Vol] 4.0 g/dL Normal 3.5-5.0 [facility] Comment on above: Performed By: #### H FP, IPB, CHM7, MGO, CA ####[facility] (DEFAULT)[address] [place] [address] ALP [Catalytic activity/Vol] 476 U/L High 32-126 [facility] Comment on above: Performed By: #### H FP, IPB, CHM7, MGO, CA ####[facility] (DEFAULT)[address] [place] [address] ALT [Catalytic activity/Vol] 72 U/L High 10-52 [facility] Comment on above: Performed By: #### H FP, IPB, CHM7, MGO, CA ####[facility] (DEFAULT)[address] [place] [address] AST [Catalytic activity/Vol] 51 U/L High 10-39 [facility] Comment on above: Performed By: #### H FP, IPB, CHM7, MGO, CA ####[facility] (DEFAULT)[address] [place] [address] Bilirubin [Mass/Vol] 0.4 mg/dL Normal <1.5 [facility] Comment on above: Performed By: #### H FP, IPB, CHM7, MGO, CA ####[facility] (DEFAULT)[address] [place] [address] Bilirubin.indirect [Mass/Vol] 0.1 mg/dL Normal <0.3 [facility] Comment on above: Performed By: #### H FP, IPB, CHM7, MGO, CA ####[facility] (DEFAULT)[address] [place] [address] Protein [Mass/Vol] 7.1 g/dL Normal 6.4-8.3 [facility] Comment on above: Result Comment: Resu lts inconsistent with previous results Performed By: #### H FP, IPB, CHM7, MGO, CA ####[facility] (DEFAULT)[address] [place] [address] L501.5101on 08-04-2024 GGTP 210 IU/L Abnormal 0-65 [facility] Comment on above: Order Comment: Test( s) 223875-[id number] (FK506), Bloodwas developed and its performance characteristicsdetermined by [facility]. It has not been cleared or approvedby the Food and Drug Administration. Result Comment: Perf ormed at: - [facility] [id number] Director: Sergio Machado MD, Phone: [phone] at: [facility] [id number] Director: Red Graham PhD, Phone: [phone] Performed By: #### L 3380.1000, L501.5101, L501.5200, L500.4050, L501.2300, L501.4700, L100.0100 ####[facility] [address] [place], [place], [address] MAGNESIUMon 08-04-2024 Magnesium [Mass/Vol] 1.7 mg/dL 1.6 - 2 .6 mg/dL [facility] Magnesium [Mass/Vol] 1.7 mg/dL Normal 1.6-2.6 [facility] Comment on above: Performed By: #### H FP, IPB, CHM7, MGO, CA ####[facility] (DEFAULT)[address] [place] [address] No Panel Informationon 08-04 Interpretation and review of laboratory results Normal [facility] PHOSPHATE, INORGANICon 08-04 Phosphate [Mass/Vol] 3.4 mg/dL 2.2 - 4 .6 mg/dL [facility] Phosphorous 3.4 mg/dL Normal 2.2-4.6 [facility] Comment on above: Performed By: #### H FP, IPB, CHM7, MGO, CA ####[facility] (DEFAULT)[address] [place] [address] SCREEN, VREOrdered By: Wenceslao Banerjee on 08-04-2024 Interpretation and review of laboratory results Normal [facility] Vancomycin Resistant Enterococcus Negative Negative [facility] TACROLIMUS LEVEL, TROUGH (PA E DRUG LEVEL)on 08-04-2024 Tacrolimus (Bld) [Mass/Vol] 11.8 ng/mL Bone Marrow Transplant: 5.0-15.0 Kidney/Pancre atic Transplant: 0 to 3 months: 8.0-10.0, 3 to 12 months: 6.0-8.0, >12 months: 4.0-6.0 [facility] Method performed is a chemiluminescent microparticle immunoasssay on the [employer] i2000. The range is based on experience at [facility] and users should be aware that target concentrations vary widely depending on concomitant therapy, time post-transplant, and desired degree of immunosuppression. [facility] Tacrolimus, Trough 11.8 ng/mL Normal Bone Veronique ow Transplant: 5.0-15.0 Kidney/Pancre atic Transplant: 0 to 3 months: 8.0-10.0, 3 to 12 months: 6.0-8.0, >12 months: 4.0-6.0 [facility] Comment on above: Order Comment: Pleas e draw at specified interval PRIOR to dose. Do not hold dose to wait for level. Specimens batched twice per day, (M-F) and once per day weekendsMethod performed is a chemiluminescent microparticle immunoasssay on the [employer] i2000.The range is based on experience at [facility] and users should be aware that target concentrations vary widely depending on concomitant therapy, time post-transplant, and desired degree of immunosuppression. Performed By: #### T ACRO ####[facility] (DEFAULT)[address] [place] [address] Tacrolimus (Prograf)on 08-04 Tacrolimus (Bld) [Mass/Vol] 6.8 ng/mL Normal 5.0-20.0 [facility] Comment on above: Order Comment: Test( s) [id number] (FK506), Bloodwas developed and its performance characteristicsdetermined by [facility]. It has not been cleared or approvedby the Food and Drug Administration. Result Comment: Targ et steady state trough concentration forTacrolimus varies based on type of organ transplantimmunosuppressive protocol and other patient specificfactors. Tacrolimus trough concentrations should beinterpreted in conjunction with clinical assessmentsof rejection and tolerability. Values obtained withdifferent assay methods cannot be used interchangeablydue to differences in assay methods and cross-reactivtywith metabolites, nor should correction factors beapplied. Therefore, consistent use of one assay forindividual patients is recommended.Detection Limit = 0.5 ng/mLPerformed by LC-MS/MS technology. Performed By: #### L 3380.1000, L501.5101, L501.5200, L500.4050, L501.2300, L501.4700, L100.0100 ####[facility] [address] [place], [address] CALCIUMon 08-03-2024 Calcium [Mass/Vol] 8.5 mg/dL Low 8.6 - 10. 5 mg/dL [facility] Calcium [Mass/Vol] 8.5 mg/dL Low 8.6-10.5 [facility] Comment on above: Performed By: #### I PB, HFP, CHM7, MGO, CA ####[facility] (DEFAULT)[address] [place] [address] CBC AND ELECTRONIC DIFFon Basophils (Bld) [#/Vol] 0.08 10*3/uL 0.00 - 0.09 K/uL [facility] Basophils/100 WBC (Bld) 2.3 % [facility] Differential cell count method Nom (Bld) Electronic Differential [facility] Eosinophils (Bld) [#/Vol] 0.05 10*3/uL 0.00 - 0.48 K/uL [facility] Eosinophils/100 WBC (Bld) 1.5 % [facility] Erythrocyte distribution width (RBC) [Ratio] 16.9 % High 10.9 - 14.3 % [facility] Hematocrit (Bld) [Volume fraction] 32.5 % Low 39.6 - 48.8 % [facility] Hemoglobin (Bld) [Mass/Vol] 10.2 g/dL Low 13.4 - 16.8 g/dL [facility] Immature granulocytes (Bld) [#/Vol] 0.04 10*3/uL NINF - 0.07 K/uL [facility] Immature granulocytes/100 WBC (Bld) 1.2 % [facility] Interpretation and review of laboratory results Abnormal [facility] Lymphocytes (Bld) [#/Vol] 0.93 10*3/uL 0.83 - 3.57 K/uL [facility] Lymphocytes/100 WBC (Bld) 27.3 % [facility] MCH (RBC) [Entitic mass] 30.5 pg 26.1 - 33.3 pg [facility] MCHC (RBC) [Mass/Vol] 31.4 g/dL Low 31.9 - 36.5 g/dL [facility] MCV (RBC) [Entitic vol] 97.3 fL High 79.0 - 94.5 fL [facility] Monocytes (Bld) [#/Vol] 0.36 10*3/uL 0.24 - 0.93 K/uL [facility] Monocytes/100 WBC (Bld) 10.6 % [facility] Neutrophils (Bld) [#/Vol] 1.95 10*3/uL 1.57 - 6.19 K/uL [facility] Nucleated RBC/100 WBC (Bld) [Ratio] 0 % NINF [facility] Platelet mean volume (Bld) [Entitic vol] 10.2 fL 8.7 - 12.3 fL [facility] Platelets (Bld) [#/Vol] 362 10*3/uL High 146 - 337 K/uL [facility] RBC (Bld) [#/Vol] 3.34 10*6/uL Low [facility] Segmented neutrophils/100 WBC (Bld) 57.1 % [facility] WBC (Bld) [#/Vol] 3.41 10*3/uL Low 3.73 - 10. 10 K/uL [facility] Basophils (Bld) [#/Vol] 0.08 10*3/uL Normal 0.00-0.09 [facility] Comment on above: Performed By: #### L [id number] ####[facility] (DEFAULT)[address] [place] [address] Basophils/100 WBC (Bld) 2.3 % Normal [facility] Comment on above: Performed By: #### L [id number] ####[facility] (DEFAULT)[address] [place] [address] DIFF STATUS Electronic Differential Normal [facility] Comment on above: Performed By: #### L [id number] ####[facility] (DEFAULT)[address] [place] [address] Eosinophils (Bld) [#/Vol] 0.05 10*3/uL Normal 0.00-0.48 [facility] Comment on above: Performed By: #### L [id number] ####[facility] (DEFAULT)[address] [place] [address] Eosinophils/100 WBC (Bld) 1.5 % Normal [facility] Comment on above: Performed By: #### L [id number] ####[facility] (DEFAULT)[address] [place] [address] Hematocrit (Bld) [Volume fraction] 32.5 % Low 39.6-48.8 [facility] Comment on above: Performed By: #### L [id number] ####[facility] (DEFAULT)[address] [facility] [place] [address] Hemoglobin (Bld) [Mass/Vol] 10.2 g/dL Low 13.4-16.8 [facility] Comment on above: Performed By: #### L [id number] ####[facility] (DEFAULT)[address] [facility] [place] [address] Immature Grans % 1.2 % Normal [facility] Comment on above: Performed By: #### L AB980 ####[facility] (DEFAULT)[address] [facility] [place] [address] Immature Grans Absolute 0.04 K/uL Normal <=0.07 [facility] Comment on above: Performed By: #### L [id number] ####[facility] (DEFAULT)[address] [facility] [place] [address] Lymphocytes (Bld) [#/Vol] 0.93 10*3/uL Normal 0.83-3.57 [facility] Comment on above: Performed By: #### L [id number] ####[facility] (DEFAULT)[address] [facility] [place] [address] Lymphocytes/100 WBC (Bld) 27.3 % Normal [facility] Comment on above: Performed By: #### L [id number] ####[facility] (DEFAULT)[address] [facility] [place] [address] MCV (RBC) [Entitic vol] 97.3 fL High 79.0-94.5 [facility] Comment on above: Performed By: #### L [id number] ####[facility] (DEFAULT)[address] [facility] [place] [address] Mean Cell Hgb 30.5 pg Normal 26.1-33.3 [facility] Comment on above: Performed By: #### L [id number] ####[facility] (DEFAULT)[address] [facility] [place] [address] Mean Cell Hgb Conc 31.4 g/dL Low 31.9-36.5 [facility] Comment on above: Performed By: #### L [id number] ####[facility] (DEFAULT)[address] [facility] [place] [address] Monocytes (Bld) [#/Vol] 0.36 10*3/uL Normal 0.24-0.93 [facility] Comment on above: Performed By: #### L [id number] ####[facility] (DEFAULT)[address] [facility] [place] [address] Monocytes/100 WBC (Bld) 10.6 % Normal [facility] Comment on above: Performed By: #### L [id number] ####[facility] (DEFAULT)[address] [facility] [place] [address] Nucleated RBC 0.0 /100 WBC Normal <=0.2 [facility] Comment on above: Performed By: #### L [id number] ####[facility] (DEFAULT)[address] [facility] [place] [address] Platelet mean volume (Bld) [Entitic vol] 10.2 fL Normal 8.7-12.3 [facility] Comment on above: Performed By: #### L [id number] ####[facility] (DEFAULT)[address] [facility] [place] [address] Platelets (Bld) [#/Vol] 362 10*3/uL High 146-337 [facility] Comment on above: Performed By: #### L [id number] ####[facility] (DEFAULT)[address] [facility] [place] [address] RBC (Bld) [#/Vol] 3.34 10*6/uL Low 4.38-5.83 [facility] Comment on above: Performed By: #### L [id number] ####[facility] (DEFAULT)[address] [facility] [place] [address] RBC Distribution 16.9 % High 10.9-14.3 [facility] Comment on above: Performed By: #### L [id number] ####[facility] (DEFAULT)[address] [facility] [place] [address] Segs + Bands Auto 57.1 % Normal [facility] Comment on above: Performed By: #### L [id number] ####[facility] (DEFAULT)[address] [facility] [place] [place] [address] Segs + Bands,Absolute Auto 1.95 K/uL Normal 1.57-6.19 [facility] Comment on above: Performed By: #### L [id number] ####[facility] (DEFAULT)[address] [place] [address] WBC (Bld) [#/Vol] 3.41 10*3/uL Low 3.73-10.10 [facility] Comment on above: Performed By: #### L [id number] ####[facility] (DEFAULT)[address] [place] [address] CHEM 7 (LYTES,BUN,CREA,GLUC) on 08-03-2024 Anion gap [Moles/Vol] 12 mmol/L 7 - 17 mmol/L [facility] Chloride [Moles/Vol] 105 mmol/L 98 - 10 8 mmol/L [facility] CO2 [Moles/Vol] 24 mmol/L 21 - 31 mmol/L [facility] Creatinine [Mass/Vol] 0.74 mg/dL 0.70 - 1.30 mg/dL [facility] eGFR, CKD-EPI, Male - PINF [facility] Comment on above: Reported eGFR is bas ed on the CKD-EPI 2020 equation using creatinine, age, and sex. Glucose [Mass/Vol] 83 mg/dL 70 - 179 mg/dL [facility] Osmolality Calc [Osmolality] 290 [facility] Potassium [Moles/Vol] 4.3 mmol/L 3.5 - 5.0 mmol/L [facility] Sodium [Moles/Vol] 137 mmol/L 135 - 145 mmol/L [facility] Urea nitrogen [Mass/Vol] 21 mg/dL 7 - 25 mg/dL [facility] Urea nitrogen/Creatinine [Mass ratio] 28 mg/mg [facility] Anion gap [Moles/Vol] 12 mmol/L Normal 7-17 [facility] Comment on above: Performed By: #### I PB, HFP, CHM7, MGO, CA ####[facility] (DEFAULT)[address] [place] [address] Chloride [Moles/Vol] 105 mmol/L Normal 98-108 [facility] Comment on above: Performed By: #### I PB, HFP, CHM7, MGO, CA ####[facility] (DEFAULT)[address] [place] [address] CO2 [Moles/Vol] 24 mmol/L Normal 21-31 [facility] Comment on above: Performed By: #### I PB, HFP, CHM7, MGO, CA ####[facility] (DEFAULT)[address] [place] [address] Creatinine [Mass/Vol] 0.74 mg/dL Normal 0.70-1.30 [facility] Comment on above: Performed By: #### I PB, HFP, CHM7, MGO, CA ####[facility] (DEFAULT)[address] [place] [address] eGFR, CKD-EPI, Male > Normal >=60 [facility] Comment on above: Result Comment: Repo rted eGFR is based on the CKD-EPI 2020 equation using creatinine, age, and sex. Performed By: #### I PB, HFP, CHM7, MGO, CA ####[facility] (DEFAULT)[address] [place] [address] Glucose [Mass/Vol] 83 mg/dL Normal Nonfastin -179 mg/dL; Fastin-99 [facility] Comment on above: Performed By: #### I PB, HFP, CHM7, MGO, CA ####[facility] (DEFAULT)[address] [place] [address] Osmolality [Osmolality] 290 mosm/kg Normal 278-305 [facility] Comment on above: Performed By: #### I PB, HFP, CHM7, MGO, CA ####[facility] (DEFAULT)[address] [place] [address] Potassium [Moles/Vol] 4.3 mmol/L Normal 3.5-5.0 [facility] Comment on above: Performed By: #### I PB, HFP, CHM7, MGO, CA ####[facility] (DEFAULT)[address] [place] [address] Sodium [Moles/Vol] 137 mmol/L Normal 135-145 [facility] Comment on above: Performed By: #### I PB, HFP, CHM7, MGO, CA ####[facility] (DEFAULT)[address] [place] [address] Urea nitrogen [Mass/Vol] 21 mg/dL Normal 7-25 [facility] Comment on above: Performed By: #### I PB, HFP, CHM7, MGO, CA ####[facility] (DEFAULT)[address] [place] [address] Urea nitrogen/Creatinine [Mass ratio] 28 mg/mg Normal [facility] Comment on above: Performed By: #### I PB, HFP, CHM7, MGO, CA ####[facility] (DEFAULT)[address] [place] [address] CMV BY PCR, QUANTITATIVE, BL OODon 08-03-2024 CMV By PCR, IU/mL, Plasma <34.5 Normal <34.5 [facility] Comment on above: Order Comment: This test was performed using a real time PCR assay. The dynamic range for this assay is 34.5-10,000,000 IU/mL (1.54-7.00 Log IU/mL). Performed By: #### C MVPCR ####[facility] (DEFAULT)[address] [place] [address] CMV QUANTITATIVE BY PCR,(LOG IU/mL) < Normal <1.54 [facility] Comment on above: Order Comment: This test was performed using a real time PCR assay. The dynamic range for this assay is 34.5-10,000,000 IU/mL (1.54-7.00 Log IU/mL). Performed By: #### C MVPCR ####[facility] (DEFAULT)[address] [place] [address] EBV BY PCR, QUANTITATIVE,BLO ODon 08-03-2024 Ebv By Pcr, Quant, Blood <35 Normal <35 [facility] Comment on above: Order Comment: This test was performed using a real time PCR assay. The dynamic range for this assay is 35-100,000,000 IU/mL (1.54-8.00 Log IU/mL). Performed By: #### E BVPCR ####[facility] (DEFAULT)[address] [place] [address] EBV Viral Load By PCR,(Log) < Normal <1.54 [facility] Comment on above: Order Comment: This test was performed using a real time PCR assay. The dynamic range for this assay is 35-100,000,000 IU/mL (1.54-8.00 Log IU/mL). Performed By: #### E BVPCR ####[facility] (DEFAULT)[address] [place] [address] HEPATIC FUNCTION PANELon Albumin [Mass/Vol] 3.5 g/dL 3.5 - 5.0 g/dL [facility] ALP [Catalytic activity/Vol] 240 U/L High 32 - 126 U/L [facility] ALT [Catalytic activity/Vol] 44 U/L 10 - 52 U/L [facility] AST [Catalytic activity/Vol] 28 U/L 10 - 39 U/L [facility] Bilirubin [Mass/Vol] 0.3 mg/dL NINF - 1.5 mg/dL [facility] Bilirubin.direct [Mass/Vol] 0.1 mg/dL NINF - 0.3 mg/dL [facility] Protein [Mass/Vol] 6.1 g/dL Low 6.4 - 8.3 g/dL [facility] Albumin [Mass/Vol] 3.5 g/dL Normal 3.5-5.0 [facility] Comment on above: Performed By: #### I PB, HFP, CHM7, MGO, CA ####[facility] (DEFAULT)[address] [place] [address] ALP [Catalytic activity/Vol] 240 U/L High 32-126 [facility] Comment on above: Performed By: #### I PB, HFP, CHM7, MGO, CA ####[facility] (DEFAULT)[address] [place] [address] ALT [Catalytic activity/Vol] 44 U/L Normal 10-52 [facility] Comment on above: Performed By: #### I PB, HFP, CHM7, MGO, CA ####[facility] (DEFAULT)[address] [place] [address] AST [Catalytic activity/Vol] 28 U/L Normal 10-39 [facility] Comment on above: Performed By: #### I PB, HFP, CHM7, MGO, CA ####[facility] (DEFAULT)[address] [place] [address] Bilirubin [Mass/Vol] 0.3 mg/dL Normal <1.5 [facility] Comment on above: Performed By: #### I PB, HFP, CHM7, MGO, CA ####[facility] (DEFAULT)[address] [place] [address] Bilirubin.indirect [Mass/Vol] 0.1 mg/dL Normal <0.3 [facility] Comment on above: Performed By: #### I PB, HFP, CHM7, MGO, CA ####[facility] (DEFAULT)[address] [place] [address] Protein [Mass/Vol] 6.1 g/dL Low 6.4-8.3 [facility] Comment on above: Performed By: #### I PB, HFP, CHM7, MGO, CA ####[facility] (DEFAULT)[address] [place] [address] MAGNESIUMon 08-03-2024 Magnesium [Mass/Vol] 1.5 mg/dL Low 1.6 - 2 .6 mg/dL [facility] Magnesium [Mass/Vol] 1.5 mg/dL Low 1.6-2.6 [facility] Comment on above: Performed By: #### I PB, HFP, CHM7, MGO, CA ####[facility] (DEFAULT)[address] [place] [address] No Panel Informationon 08-03 Interpretation and review of laboratory results Abnormal [facility] PHOSPHATE, INORGANICon 08-03 Interpretation and review of laboratory results Normal [facility] Phosphate [Mass/Vol] 3.4 mg/dL 2.2 - 4 .6 mg/dL [facility] Phosphorous 3.4 mg/dL Normal 2.2-4.6 [facility] Comment on above: Performed By: #### I PB, HFP, CHM7, MGO, CA ####[facility] (DEFAULT)[address] [place] [id number] POUCHOSCOPYon 08-03-2024 Body surface area Derived from formula 1.53 m2 [facility] Gastroenterology Patient Name: Jc Dunaway Procedure Date: 08/03/2024 1:00 PM Date of : 1965 Admit Type: Inpatient Age: 59 Room: [place] [address] Gender: Male Note Status: Finalized Attending MD: Dipak Banerjee MD, [id number] Procedure: Pouchoscopy Indications: Hematochezia, Inflammatory bowel disease Providers: Dipak Banerjee MD (Doctor), Nilson Larsen MD (Fellow), Sasha Day RN (Nurse), Thad Triplett Shipping And Receiving Weigher (Shipping And Receiving Weigher) Patient Profile: This is a 59 year old male. Refer to note in patient chart for documentation of history and physical. Referring MD: Sonya Treviño MD, MPH (Referring MD) Medicines: Monitored Anesthesia Care Complications: No immediate complications. Procedure: Pre-Anesthesia Assessment: - Prior to the procedure, a History and Physical was performed, and patient medications and allergies were reviewed. The patient is competent. The risks and benefits of the procedure and the sedation options and risks were discussed with the patient. All questions were answered and informed consent was obtained. Patient identification and proposed procedure were verified by the physician and the nurse in the procedure room at 13:00 PM. Mental Status Examination: alert and oriented. Airway Examination: normal oropharyngeal airway and neck mobility. Respiratory Examination: clear to auscultation. CV Examination: RRR, no murmurs, no S3 or S4. Prophylactic Antibiotics: The patient does not require prophylactic antibiotics. Prior Anticoagulants: The patient has taken no anticoagulant or antiplatelet agents. ASA Grade Assessment: III - A patient with severe systemic disease. After reviewing the risks and benefits, the patient was deemed in satisfactory condition to undergo the procedure. The anesthesia plan was to use monitored anesthesia care (MAC). Immediately prior to administration of medications, the patient was re-assessed for adequacy to receive sedatives. The heart rate, respiratory rate, oxygen saturations, blood pressure, adequacy of pulmonary ventilation, and response to care were monitored throughout the procedure. The physical status of the patient was re-assessed after the procedure. After obtaining informed consent, the endoscope was passed under direct vision. Throughout the procedure, the patient's blood pressure, pulse, and oxygen saturations were monitored continuously. The [id number] was introduced through the ileoanal anastomosis via the anus and advanced to the hawa-terminal ileum. The procedure was performed without difficulty. The patient tolerated the procedure well. The quality of the bowel preparation was excellent. 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 The j-pouch appeared normal. Biopsies were taken with a cold forceps for histology. The pre-pouch ileum contained one sessile, non-bleeding polyp. The polyp was 2 mm in diameter. The polyp was removed with a cold biopsy forceps. Resection and retrieval were complete. Impression: - The j-pouch is normal, healthy. Biopsied to exclude microscopic inflammation or opportunistic infections - One polyp in the pre-pouch ileum, removed with a cold biopsy forceps. Resected and retrieved. Recommendation: - Return patient to hospital [facility] for ongoing care. - Resume previous diet. Procedure Code(s): --- Professional --- 82486, GC, Endoscopic evaluation of small intestinal pouch (eg, Kock pouch, ileal reservoir [S or J]); with biopsy, single or multiple Diagnosis Code(s): --- Professional - (more content not included)... LAB, [facility] Radiology Study observation (narrative) [facility] SURG PATH REQUESTon 08-04-19 25 Addendum Normal [facility] Comment on above: Result Comment: CMV immunohistochemical stains (A1 and B1) are negative. The original diagnoses remain unchanged.All controls show appropriate reactivity. All immunohistochemistry (IHC), in situ hybridization (MELA), and histochemical tests were developed by and are performed at the [facility] Clinical Laboratory, Histology and IHC Lab, [address] [place] [address]. All Immunofluorescent (IF) tests were developed by and are performed at the [facility], Renal Division, [address] [address]. All tests reported here, except for PD-L1, have not been cleared by or approved by the US Food and Drug Administration (FDA). The laboratory is regulated under CLIA as qualified to perform high-complexity testing. The tests are used for clinical purposes. They should not be regarded as investigational or for research.Addendum electronically signed by Raquel Colin MD on 08/05/2024 at 1417 EDT Performed By: #### S URGP ####[facility] (DEFAULT)[address] [place] [address] Case Report [facility] Comment on above: Result Comment: Surg ical Pathology Report Case: [id number] Provider: Dipak Banerjee MD Collected: 08/03/2024 01:12 PMOrdering Location: [facility] Received: 08/03/2024 02:23 PMPathologist: MAGDY Lomaspecimens: A) - TISSUE, ileal polyp-forceps B) - TISSUE, random pouch bopsies-evaluate for pouchitis, r/o CMV Performed By: #### S URGP ####[facility] (DEFAULT)[address] [place] [address] Clinical History Evaluate for pouchit is. R/o CMV. Medical History: Ulcerative colitis. Primary sclerosing cholangitis. Colon cancer. Cirrhosis of liver not due to alcohol. [facility] Comment on above: Performed By: #### S URGP ####[facility] (DEFAULT)[address] [address] Gross Description [facility] Comment on above: Result Comment: The specimen is received in two properly labeled containers with the patient's name and accession number.A. The specimen is designated ileal polyp - forceps and consists of one soft swanson portion of tissue which is 0.3 cm in greatest dimension. TE 1B. The specimen is designated random pouch bopsies - evaluate for pouchitis, r/o CMV and consists of six fragments of swanson-pink soft tissue, from 0.2 up to 0.4 cm in greatest dimension. TE 1Lab Use Only: JobID [id number] for this case was: Martha Patel Performed By: #### S URGP ####[facility] (DEFAULT)[address] [place] [address] Microscopic Description A microscopic examination was performed. [facility] Comment on above: Performed By: #### S URGP ####[facility] (DEFAULT)[address] [place] [address] Pathologic Diagnosis Normal [facility] Comment on above: Result Comment: A. S mall intestine, ileum, polyp, biopsy:Polypoid intestinal mucosa, no significant pathologic changeNegative for dysplasiaB. Small intestine, pouch, random, biopsy:Intestinal mucosa with focal minimal acute inflammationNegative for dysplasia at 1617 EDT Performed By: #### S URGP ####[facility] (DEFAULT)[address] [place] [address] Professional Interpretation Performed at: [facility] Comment on above: Result Comment: [facility] CLINICAL LABORATORYFor Immediate Release to [facility]? [address] [place] [id number] Performed By: #### S URGP ####[facility] (DEFAULT)[address] [place] [address] TACROLIMUS LEVEL, TROUGH (PA E DRUG LEVEL)on 08-03-2024 Tacrolimus (Bld) [Mass/Vol] 10.8 ng/mL Bone Marrow Transplant: 5.0-15.0 Kidney/Pancre atic Transplant: 0 to 3 months: 8.0-10.0, 3 to 12 months: 6.0-8.0, >12 months: 4.0-6.0 [facility] Method performed is a chemiluminescent microparticle immunoasssay on the [employer] Maintainer i2000. The range is based on experience at [facility] and users should be aware that target concentrations vary widely depending on concomitant therapy, time post-transplant, and desired degree of immunosuppression. [facility] Tacrolimus, Trough 10.8 ng/mL Normal Bone Veronique ow Transplant: 5.0-15.0 Kidney/Pancre atic Transplant: 0 to 3 months: 8.0-10.0, 3 to 12 months: 6.0-8.0, >12 months: 4.0-6.0 [facility] Comment on above: Order Comment: Pleas e draw at specified interval PRIOR to dose. Do not hold dose to wait for level. Specimens batched twice per day, (M-F) and once per day weekendsMethod performed is a chemiluminescent microparticle immunoasssay on the [employer] Track Maintainer i2000.The range is based on experience at [facility] and users should be aware that target concentrations vary widely depending on concomitant therapy, time post-transplant, and desired degree of immunosuppression. Performed By: #### T ACRO ####[facility] (DEFAULT)[address] [place] [address] CALCIUMon 08-02-2024 Calcium [Mass/Vol] 8.7 mg/dL 8.6 - 10. 5 mg/dL [facility] Calcium [Mass/Vol] 8.7 mg/dL Normal 8.6-10.5 [facility] Comment on above: Performed By: #### I PB, CHM7, MGO, CA ####[facility] (DEFAULT)[address] [place] [address] NAEEM AURIS SCREEN BY PCRO rdered By: Leo Hernandez on 08-02-2024 Naeem auris Screen by PCR Detected Abnormal Not Detected [facility] Comment on above: A positive colonizat ion screen does not indicate active infection. If concerned for active infection, ID consult and clinical correlation recommended Interpretation and review of laboratory results Abnormal [facility] This test was perfor med using a real-time PCR assay. This test was developed, and its performance characteristics determined by The Clinical Microbiology Laboratory at [facility]. It has not been cleared or approved by the FDA. The laboratory is regulated under CLIA as qualified to perform high-complexity testing. This test is used for clinical purposes. It should not be regarded as investigational or for research. [facility] CBC AND ELECTRONIC DIFFon Basophils (Bld) [#/Vol] 0.05 10*3/uL 0.00 - 0.09 K/uL [facility] Basophils/100 WBC (Bld) 1.6 % [facility] Differential cell count method Nom (Bld) Electronic Differential [facility] Eosinophils (Bld) [#/Vol] 0.07 10*3/uL 0.00 - 0.48 K/uL [facility] Eosinophils/100 WBC (Bld) 2.2 % [facility] Erythrocyte distribution width (RBC) [Ratio] 17.3 % High 10.9 - 14.3 % [facility] Hematocrit (Bld) [Volume fraction] 32.6 % Low 39.6 - 48.8 % [facility] Hemoglobin (Bld) [Mass/Vol] 10.4 g/dL Low 13.4 - 16.8 g/dL [facility] Immature granulocytes (Bld) [#/Vol] 0.07 10*3/uL NINF - 0.07 K/uL [facility] Immature granulocytes/100 WBC (Bld) 2.2 % [facility] Interpretation and review of laboratory results Abnormal [facility] Lymphocytes (Bld) [#/Vol] 0.89 10*3/uL 0.83 - 3.57 K/uL [facility] Lymphocytes/100 WBC (Bld) 28.1 % [facility] MCH (RBC) [Entitic mass] 31.8 pg 26.1 - 33.3 pg [facility] MCHC (RBC) [Mass/Vol] 31.9 g/dL 31.9 - 36.5 g/dL [facility] MCV (RBC) [Entitic vol] 99.7 fL High 79.0 - 94.5 fL [facility] Monocytes (Bld) [#/Vol] 0.42 10*3/uL 0.24 - 0.93 K/uL [facility] Monocytes/100 WBC (Bld) 13.2 % [facility] Neutrophils (Bld) [#/Vol] 1.67 10*3/uL 1.57 - 6.19 K/uL [facility] Nucleated RBC/100 WBC (Bld) [Ratio] 0 % NINF [facility] Platelet mean volume (Bld) [Entitic vol] 10.2 fL 8.7 - 12.3 fL [facility] Platelets (Bld) [#/Vol] 338 10*3/uL High 146 - 337 K/uL [facility] RBC (Bld) [#/Vol] 3.27 10*6/uL Low [facility] Segmented neutrophils/100 WBC (Bld) 52.7 % [facility] WBC (Bld) [#/Vol] 3.17 10*3/uL Low 3.73 - 10. 10 K/uL [facility] Basophils (Bld) [#/Vol] 0.05 10*3/uL Normal 0.00-0.09 [facility] Comment on above: Performed By: #### L [id number] ####[facility] (DEFAULT)[address] [place] [address] Basophils/100 WBC (Bld) 1.6 % Normal [facility] Comment on above: Performed By: #### L [id number] ####[facility] (DEFAULT)[address] [place] [address] DIFF STATUS Electronic Differential Normal [facility] Comment on above: Performed By: #### L [id number] ####[facility] (DEFAULT)[address] [place] [address] Eosinophils (Bld) [#/Vol] 0.07 10*3/uL Normal 0.00-0.48 [facility] Comment on above: Performed By: #### L [id number] ####[facility] (DEFAULT)[address] [place] [address] Eosinophils/100 WBC (Bld) 2.2 % Normal [facility] Comment on above: Performed By: #### L [id number] ####[facility] (DEFAULT)[address] [place] [address] Hematocrit (Bld) [Volume fraction] 32.6 % Low 39.6-48.8 [facility] Comment on above: Performed By: #### L [id number] ####[facility] (DEFAULT)[address] [place] [address], [place] [address] Hemoglobin (Bld) [Mass/Vol] 10.4 g/dL Low 13.4-16.8 [facility] Comment on above: Performed By: #### L [id number] ####[facility] (DEFAULT)[address] [place] [address] Immature Grans % 2.2 % Normal [facility] Comment on above: Performed By: #### L [id number] ####[facility] (DEFAULT)[address] [place] [address], [place] [address] Immature Grans Absolute 0.07 K/uL Normal <=0.07 [facility] Comment on above: Performed By: #### L [id number] ####[facility] (DEFAULT)[address] [place] [address] Lymphocytes (Bld) [#/Vol] 0.89 10*3/uL Normal 0.83-3.57 [facility] Comment on above: Performed By: #### L [id number] ####[facility] (DEFAULT)[address] [place] [address], [place] [address] Lymphocytes/100 WBC (Bld) 28.1 % Normal [facility] Comment on above: Performed By: #### L [id number] ####[facility] (DEFAULT)[address] [place] [address] MCV (RBC) [Entitic vol] 99.7 fL High 79.0-94.5 [facility] Comment on above: Performed By: #### L [id number] ####[facility] (DEFAULT)[address] [facility] [place] [address] Mean Cell Hgb 31.8 pg Normal 26.1-33.3 [facility] Comment on above: Performed By: #### L [id number] ####[facility] (DEFAULT)[address] [place] [address] Mean Cell Hgb Conc 31.9 g/dL Normal 31.9-36.5 [facility] Comment on above: Performed By: #### L [id number] ####[facility] (DEFAULT)[address] [facility] [place] [address] Monocytes (Bld) [#/Vol] 0.42 10*3/uL Normal 0.24-0.93 [facility] Comment on above: Performed By: #### L [id number] ####[facility] (DEFAULT)[address] [place] [address] Monocytes/100 WBC (Bld) 13.2 % Normal [facility] Comment on above: Performed By: #### L [id number] ####[facility] (DEFAULT)[address] [facility] [place] [place] [address] Nucleated RBC 0.0 /100 WBC Normal <=0.2 [facility] Comment on above: Performed By: #### L [id number] ####[facility] (DEFAULT)[address] [facility] [place] [place] [address] Platelet mean volume (Bld) [Entitic vol] 10.2 fL Normal 8.7-12.3 [facility] Comment on above: Performed By: #### L [id number] ####[facility] (DEFAULT)[address] [facility] [place] [address] Platelets (Bld) [#/Vol] 338 10*3/uL High 146-337 [facility] Comment on above: Performed By: #### L [id number] ####[facility] (DEFAULT)[address] [facility] [place] [place] [address] RBC (Bld) [#/Vol] 3.27 10*6/uL Low 4.38-5.83 [facility] Comment on above: Performed By: #### L [id number] ####[facility] (DEFAULT)[address] [place] [address] RBC Distribution 17.3 % High 10.9-14.3 [facility] Comment on above: Performed By: #### L [id number] ####[facility] (DEFAULT)[address] [place] [address] Segs + Bands Auto 52.7 % Normal [facility] Comment on above: Performed By: #### L [id number] ####[facility] (DEFAULT)[address] [place] [address] Segs + Bands,Absolute Auto 1.67 K/uL Normal 1.57-6.19 [facility] Comment on above: Performed By: #### L [id number] ####[facility] (DEFAULT)[address] [place] [address], [place] [address] WBC (Bld) [#/Vol] 3.17 10*3/uL Low 3.73-10.10 [facility] Comment on above: Performed By: #### L [id number] ####[facility] (DEFAULT)[address] [place] [address] CHEM 7 (LYTES,BUN,CREA,GLUC) on 08-02-2024 Anion gap [Moles/Vol] 15 mmol/L 7 - 17 mmol/L [facility] Chloride [Moles/Vol] 105 mmol/L 98 - 10 8 mmol/L [facility] CO2 [Moles/Vol] 24 mmol/L 21 - 31 mmol/L [facility] Creatinine [Mass/Vol] 0.71 mg/dL 0.70 - 1.30 mg/dL [facility] eGFR, CKD-EPI, Male - PINF [facility] Comment on above: Reported eGFR is bas ed on the CKD-EPI 2020 equation using creatinine, age, and sex. Glucose [Mass/Vol] 83 mg/dL 70 - 179 mg/dL [facility] Osmolality Calc [Osmolality] 298 [facility] Potassium [Moles/Vol] 4.3 mmol/L 3.5 - 5.0 mmol/L [facility] Sodium [Moles/Vol] 140 mmol/L 135 - 145 mmol/L [facility] Urea nitrogen [Mass/Vol] 28 mg/dL High 7 - 25 mg/dL [facility] Urea nitrogen/Creatinine [Mass ratio] 39 mg/mg [facility] Anion gap [Moles/Vol] 15 mmol/L Normal 7-17 [facility] Comment on above: Performed By: #### I PB, CHM7, MGO, CA ####[facility] (DEFAULT)[address] [place] [address] Chloride [Moles/Vol] 105 mmol/L Normal 98-108 [facility] Comment on above: Performed By: #### I PB, CHM7, MGO, CA ####[facility] (DEFAULT)[address] [place] [address] CO2 [Moles/Vol] 24 mmol/L Normal 21-31 [facility] Comment on above: Performed By: #### I PB, CHM7, MGO, CA ####[facility] (DEFAULT)[address] [place] [address] Creatinine [Mass/Vol] 0.71 mg/dL Normal 0.70-1.30 [facility] Comment on above: Performed By: #### I PB, CHM7, MGO, CA ####[facility] (DEFAULT)[address] [place] [address] eGFR, CKD-EPI, Male > Normal >=60 [facility] Comment on above: Result Comment: Repo rted eGFR is based on the CKD-EPI 2020 equation using creatinine, age, and sex. Performed By: #### I PB, CHM7, MGO, CA ####[facility] (DEFAULT)[address] [place] [address] Glucose [Mass/Vol] 83 mg/dL Normal Nonfastin -179 mg/dL; Fastin-99 [facility] Comment on above: Performed By: #### I PB, CHM7, MGO, CA ####[facility] (DEFAULT)[address] [place] [address] Osmolality [Osmolality] 298 mosm/kg Normal 278-305 [facility] Comment on above: Performed By: #### I PB, CHM7, MGO, CA ####[facility] (DEFAULT)[address] [place] [address] Potassium [Moles/Vol] 4.3 mmol/L Normal 3.5-5.0 [facility] Comment on above: Performed By: #### I PB, CHM7, MGO, CA ####[facility] (DEFAULT)[address] [place] [address] Sodium [Moles/Vol] 140 mmol/L Normal 135-145 [facility] Comment on above: Performed By: #### I PB, CHM7, MGO, CA ####[facility] (DEFAULT)[address] [place] [address] Urea nitrogen [Mass/Vol] 28 mg/dL High 7-25 [facility] Comment on above: Performed By: #### I PB, CHM7, MGO, CA ####[facility] (DEFAULT)[address] [place] [address] Urea nitrogen/Creatinine [Mass ratio] 39 mg/mg Normal [facility] Comment on above: Performed By: #### I PB, CHM7, MGO, CA ####[facility] (DEFAULT)[address] [place] [address] CT ABDOMEN/PELVIS WITHOUT CO NTRASTon 08-02-2024 CT ABDOMEN/PELVIS WITHOUT CONTRAST Normal [facility] CT Abdomen and Pelvis WO woody lewon 08-02-2024 IMPRESSION: 1. No acute findings in the abdomen and pelvis. 2. Indeterminate nodule/mass in the left hemipelvis measuring up to 2.6 cm. OLOGY EXAM: CT ABDOMEN/PEL VIS WITHOUT CONTRAST, 08/02/2024 22:41 PM COMPARISON: CT ABDOMEN/PELVIS WITH CONTRAST June 02, 2024 CLINICAL INDICATIONS: intermittent fevers TECHNIQUE: CT scanning of the abdomen and pelvis was performed without the administration of intravenous contrast. PROTOCOL: Standard. FINDINGS: The absence of intravenous contrast compromises evaluation of the solid organs and vessels. Lung Bases: Normal. Liver: Status post liver transplant. Gallbladder: Cholecystectomy. Bile Ducts: Normal in caliber. Spleen: Normal. Pancreas: Normal. Adrenals: Normal. Right Kidney: Normal. No stones. No hydronephrosis. Left Kidney: Normal. No stones. No hydronephrosis. 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 No dilated bowel loops. Peritoneum/retroperitoneu m: Indeterminate nodule in the left presacral space measuring 2.6 x 1.9 cm (series 2 image 101).. Lymph nodes: No enlarged or morphologically abnormal lymph nodes. Vasculature: The abdominal aorta is normal in course and caliber. Bladder: Normal. Pelvic Organs: Normal. Body Wall: Slight nodularity along the anterior and lateral upper abdominal wall which may be related to prior surgery.. Bones: Postoperative changes in the left hip. RADIOLOGY Uriel John DO - 08/02/2024 EXAM: CT ABDOMEN/PELVIS WITHOUT CONTRAST, 08/02/2024 22:41 PM COMPARISON: CT ABDOMEN/PELVIS WITH CONTRAST June 02, 2024 CLINICAL INDICATIONS: intermittent fevers TECHNIQUE: CT scanning of the abdomen and pelvis was performed without the administration of intravenous contrast. PROTOCOL: Standard. FINDINGS: The absence of intravenous contrast compromises evaluation of the solid organs and vessels. Lung Bases: Normal. Liver: Status post liver transplant. Gallbladder: Cholecystectomy. Bile Ducts: Normal in caliber. Spleen: Normal. Pancreas: Normal. Adrenals: Normal. Right Kidney: Normal. No stones. No hydronephrosis. Left Kidney: Normal. No stones. No hydronephrosis. 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 No dilated bowel loops. Peritoneum/retroperitoneu m: Indeterminate nodule in the left presacral space measuring 2.6 x 1.9 cm (series 2 image 101).. Lymph nodes: No enlarged or morphologically abnormal lymph nodes. Vasculature: The abdominal aorta is normal in course and caliber. Bladder: Normal. Pelvic Organs: Normal. Body Wall: Slight nodularity along the anterior and lateral upper abdominal wall which may be related to prior surgery.. Bones: Postoperative changes in the left hip. IMPRESSION IMPRESSION: 1. No acute findings in the abdomen and pelvis. 2. Indeterminate nodule/mass in the left hemipelvis measuring up to 2.6 cm. [facility] Radiology Study observation (narrative) [facility] CT Abdomen and Pelvis WO con trastOrdered By: Uriel John on 08-02-2024 [facility] Work Phone: EXTRA MICROon 08-02-2024 [facility] Gastrointestinal pathogens i dentified JACKY+probe Nom (Stl)Ordered By: Abeba Daniel on 08-02-2024 Campylobacter sp DNA JACKY+probe Nom (Unsp spec) Negative Negative [facility] Interpretation and review of laboratory results Normal [facility] Salmonella sp DNA JACKY+probe Ql (Unsp spec) Negative Negative [facility] Shiga toxin stx gene JACKY+probe Nom (Unsp spec) Negative Negative [facility] Shigella sp DNA JACKY+probe Ql (Unsp spec) Negative Negative [facility] This test was perfor med using a real time PCR assay. Results should be interpreted in conjunction with clinical findings. A positive result does not necessarily indicate the presence of viable organisms. Positive results do not rule out co-infection with other organisms that are not detected by this assay. For Shiga toxin, this assay detects Shiga toxin 1 / Shiga toxin 2 genes (found in Shiga toxin-producing E. coli as well as Shigella dysenteriae). This test should not be used as a test of cure. [facility] IMMUNOCOMPROMISED RESPIRATOR Y PANELon 08-02-2024 Adenovirus - Pcr Not detected Normal Not Detected [facility] Comment on above: Order Comment: Viral transport media (red screw top with red liquid media) or BAL - Collection must be done while wearing N-95 mask, eye protection, gown and gloves.\X09\Results should be used in conjunction with other clinical and laboratory findings. This result does not rule out co-infections with pathogens that are not screened for by the Respiratory Panel(RP). This RP assay was performed using a Film Array multiplex nucleic acid assay. Performed By: #### I CRESP ####[facility] (DEFAULT)[address] [place] [id number] Bordetella Parapertussis Not detected Normal Not Detected [facility] Comment on above: Order Comment: Viral transport media (red screw top with red liquid media) or BAL - Collection must be done while wearing N-95 mask, eye protection, gown and gloves.\X09\Results should be used in conjunction with other clinical and laboratory findings. This result does not rule out co-infections with pathogens that are not screened for by the Respiratory Panel(RP). This RP assay was performed using a Film Array multiplex nucleic acid assay. Performed By: #### I CRESP ####[facility] (DEFAULT)[address] [place] [id number] Bordetella Pertussis Not detected Normal Not Detected [facility] Comment on above: Order Comment: Viral transport media (red screw top with red liquid media) or BAL - Collection must be done while wearing N-95 mask, eye protection, gown and gloves.\X09\Results should be used in conjunction with other clinical and laboratory findings. This result does not rule out co-infections with pathogens that are not screened for by the Respiratory Panel(RP). This RP assay was performed using a Film Array multiplex nucleic acid assay. Performed By: #### I CRESP ####[facility] (DEFAULT)[address] [place] [address], [place] [address] Chlamydia Pneumoniae Not detected Normal Not Detected [facility] Comment on above: Order Comment: Viral transport media (red screw top with red liquid media) or BAL - Collection must be done while wearing N-95 mask, eye protection, gown and gloves.\X09\Results should be used in conjunction with other clinical and laboratory findings. This result does not rule out co-infections with pathogens that are not screened for by the Respiratory Panel(RP). This RP assay was performed using a Film Array multiplex nucleic acid assay. Performed By: #### I CRESP ####[facility] (DEFAULT)[address] [place] [address], [place] [address] Coronavirus 229E Not detected Normal Not Detected [facility] Comment on above: Order Comment: Viral transport media (red screw top with red liquid media) or BAL - Collection must be done while wearing N-95 mask, eye protection, gown and gloves.\X09\Results should be used in conjunction with other clinical and laboratory findings. This result does not rule out co-infections with pathogens that are not screened for by the Respiratory Panel(RP). This RP assay was performed using a Film Array multiplex nucleic acid assay. Performed By: #### I CRESP ####[facility] (DEFAULT)[address] [place] [address], [place] [address] Coronavirus Hku1 Not detected Normal Not Detected [facility] Comment on above: Order Comment: Viral transport media (red screw top with red liquid media) or BAL - Collection must be done while wearing N-95 mask, eye protection, gown and gloves.\X09\Results should be used in conjunction with other clinical and laboratory findings. This result does not rule out co-infections with pathogens that are not screened for by the Respiratory Panel(RP). This RP assay was performed using a Film Array multiplex nucleic acid assay. Performed By: #### I CRESP ####[facility] (DEFAULT)[address] [place] [address] Coronavirus Nl63 Not detected Normal Not Detected [facility] Comment on above: Order Comment: Viral transport media (red screw top with red liquid media) or BAL - Collection must be done while wearing N-95 mask, eye protection, gown and gloves.\X09\Results should be used in conjunction with other clinical and laboratory findings. This result does not rule out co-infections with pathogens that are not screened for by the Respiratory Panel(RP). This RP assay was performed using a Film Array multiplex nucleic acid assay. Performed By: #### I CRESP ####[facility] (DEFAULT)[address] [address] Coronavirus Oc43 Not detected Normal Not Detected [facility] Comment on above: Order Comment: Viral transport media (red screw top with red liquid media) or BAL - Collection must be done while wearing N-95 mask, eye protection, gown and gloves.\X09\Results should be used in conjunction with other clinical and laboratory findings. This result does not rule out co-infections with pathogens that are not screened for by the Respiratory Panel(RP). This RP assay was performed using a Film Array multiplex nucleic acid assay. Performed By: #### I CRESP ####[facility] (DEFAULT)[address] [address] Influenza A - Pcr Not detected Normal Not Detected [facility] Comment on above: Order Comment: Viral transport media (red screw top with red liquid media) or BAL - Collection must be done while wearing N-95 mask, eye protection, gown and gloves.\X09\Results should be used in conjunction with other clinical and laboratory findings. This result does not rule out co-infections with pathogens that are not screened for by the Respiratory Panel(RP). This RP assay was performed using a Film Array multiplex nucleic acid assay. Performed By: #### I CRESP ####[facility] (DEFAULT)[address] [address] Influenza B - Pcr Not detected Normal Not Detected [facility] Comment on above: Order Comment: Viral transport media (red screw top with red liquid media) or BAL - Collection must be done while wearing N-95 mask, eye protection, gown and gloves.\X09\Results should be used in conjunction with other clinical and laboratory findings. This result does not rule out co-infections with pathogens that are not screened for by the Respiratory Panel(RP). This RP assay was performed using a Film Array multiplex nucleic acid assay. Performed By: #### I CRESP ####[facility] (DEFAULT)[address] [address] Metapneumovirus - Pcr Not detected Normal Not Detected [facility] Comment on above: Order Comment: Viral transport media (red screw top with red liquid media) or BAL - Collection must be done while wearing N-95 mask, eye protection, gown and gloves.\X09\Results should be used in conjunction with other clinical and laboratory findings. This result does not rule out co-infections with pathogens that are not screened for by the Respiratory Panel(RP). This RP assay was performed using a Film Array multiplex nucleic acid assay. Performed By: #### I CRESP ####[facility] (DEFAULT)[address] [address] Mycoplasma Pneumoniae Not detected Normal Not Detected [facility] Comment on above: Order Comment: Viral transport media (red screw top with red liquid media) or BAL - Collection must be done while wearing N-95 mask, eye protection, gown and gloves.\X09\Results should be used in conjunction with other clinical and laboratory findings. This result does not rule out co-infections with pathogens that are not screened for by the Respiratory Panel(RP). This RP assay was performed using a Film Array multiplex nucleic acid assay. Performed By: #### I CRESP ####[facility] (DEFAULT)[address] [address] Parainfluenza 1 - Pcr Not detected Normal Not Detected [facility] Comment on above: Order Comment: Viral transport media (red screw top with red liquid media) or BAL - Collection must be done while wearing N-95 mask, eye protection, gown and gloves.\X09\Results should be used in conjunction with other clinical and laboratory findings. This result does not rule out co-infections with pathogens that are not screened for by the Respiratory Panel(RP). This RP assay was performed using a Film Array multiplex nucleic acid assay. Performed By: #### I CRESP ####[facility] (DEFAULT)[address] [place] [address] Parainfluenza 2 - Pcr Not detected Normal Not Detected [facility] Comment on above: Order Comment: Viral transport media (red screw top with red liquid media) or BAL - Collection must be done while wearing N-95 mask, eye protection, gown and gloves.\X09\Results should be used in conjunction with other clinical and laboratory findings. This result does not rule out co-infections with pathogens that are not screened for by the Respiratory Panel(RP). This RP assay was performed using a Film Array multiplex nucleic acid assay. Performed By: #### I CRESP ####[facility] (DEFAULT)[address] [address] Parainfluenza 3 - Pcr Not detected Normal Not Detected [facility] Comment on above: Order Comment: Viral transport media (red screw top with red liquid media) or BAL - Collection must be done while wearing N-95 mask, eye protection, gown and gloves.\X09\Results should be used in conjunction with other clinical and laboratory findings. This result does not rule out co-infections with pathogens that are not screened for by the Respiratory Panel(RP). This RP assay was performed using a Film Array multiplex nucleic acid assay. Performed By: #### I CRESP ####[facility] (DEFAULT)[address] [place] [address], [place] [address] Parainfluenza 4 - Pcr Not detected Normal Not Detected [facility] Comment on above: Order Comment: Viral transport media (red screw top with red liquid media) or BAL - Collection must be done while wearing N-95 mask, eye protection, gown and gloves.\X09\Results should be used in conjunction with other clinical and laboratory findings. This result does not rule out co-infections with pathogens that are not screened for by the Respiratory Panel(RP). This RP assay was performed using a Film Array multiplex nucleic acid assay. Performed By: #### I CRESP ####[facility] (DEFAULT)[address] [place] [address] Rhinovirus/Enteroviru s - PCR Not detected Normal Not Detected [facility] Comment on above: Order Comment: Viral transport media (red screw top with red liquid media) or BAL - Collection must be done while wearing N-95 mask, eye protection, gown and gloves.\X09\Results should be used in conjunction with other clinical and laboratory findings. This result does not rule out co-infections with pathogens that are not screened for by the Respiratory Panel(RP). This RP assay was performed using a Film Array multiplex nucleic acid assay. Performed By: #### I CRESP ####[facility] (DEFAULT)[address] [address] Rsv - Pcr Not detected Normal Not Detected [facility] Comment on above: Order Comment: Viral transport media (red screw top with red liquid media) or BAL - Collection must be done while wearing N-95 mask, eye protection, gown and gloves.\X09\Results should be used in conjunction with other clinical and laboratory findings. This result does not rule out co-infections with pathogens that are not screened for by the Respiratory Panel(RP). This RP assay was performed using a Film Array multiplex nucleic acid assay. Performed By: #### I CRESP ####[facility] (DEFAULT)[address] [address] SARS-CoV-2 (COVID-19) RNA JACKY+probe Ql (Unsp spec) Not detected Normal NOT DETECTED [facility] Comment on above: Order Comment: Viral transport media (red screw top with red liquid media) or BAL - Collection must be done while wearing N-95 mask, eye protection, gown and gloves.\X09\Results should be used in conjunction with other clinical and laboratory findings. This result does not rule out co-infections with pathogens that are not screened for by the Respiratory Panel(RP). This RP assay was performed using a Film Array multiplex nucleic acid assay. Performed By: #### I CRESP ####[facility] (DEFAULT)[address] [address] MAGNESIUMon 06-03-2025 Magnesium [Mass/Vol] 1.5 mg/dL Low 1.6 - 2 .6 mg/dL [facility] Magnesium [Mass/Vol] 1.5 mg/dL Low 1.6-2.6 [facility] Comment on above: Performed By: #### I PB, CHM7, MGO, CA ####[facility] (DEFAULT)[address] [place] [address], [place] [address] MOLECULAR ENTERIC PANEL, [facility] 08-02-2024 Campylobacter Spp By Pcr Negative Normal Negative [facility] Comment on above: Order Comment: Colle ct sample in orange top stool collection vialThis test was performed using a real time PCR assay. Results should be interpreted in conjunction with clinical findings. A positive result does not necessarily indicate the presence of viable organisms. Positive results do not rule out co-infection with other organisms that are not detected by this assay. For Shiga toxin, this assay detects Shiga toxin 1 / Shiga toxin 2 genes (found in Shiga toxin-producing E. coli as well as Shigella dysenteriae). This test should not be used as a test of cure. Performed By: #### S TLB ####[facility] (DEFAULT)[address] [place] [address] Salmonella Spp By Pcr Negative Normal Negative [facility] Comment on above: Order Comment: Colle ct sample in orange top stool collection vialThis test was performed using a real time PCR assay. Results should be interpreted in conjunction with clinical findings. A positive result does not necessarily indicate the presence of viable organisms. Positive results do not rule out co-infection with other organisms that are not detected by this assay. For Shiga toxin, this assay detects Shiga toxin 1 / Shiga toxin 2 genes (found in Shiga toxin-producing E. coli as well as Shigella dysenteriae). This test should not be used as a test of cure. Performed By: #### S TLB ####[facility] (DEFAULT)[address] [place] [address] Shiga Toxin By Pcr Negative Normal Negative [facility] Comment on above: Order Comment: Colle ct sample in orange top stool collection vialThis test was performed using a real time PCR assay. Results should be interpreted in conjunction with clinical findings. A positive result does not necessarily indicate the presence of viable organisms. Positive results do not rule out co-infection with other organisms that are not detected by this assay. For Shiga toxin, this assay detects Shiga toxin 1 / Shiga toxin 2 genes (found in Shiga toxin-producing E. coli as well as Shigella dysenteriae). This test should not be used as a test of cure. Performed By: #### S TLB ####[facility] (DEFAULT)[address] [place] [address] Shigella Spp./Enteroinvasive E.Coli By PCR Negative Normal Negative [facility] Comment on above: Order Comment: Colle ct sample in orange top stool collection vialThis test was performed using a real time PCR assay. Results should be interpreted in conjunction with clinical findings. A positive result does not necessarily indicate the presence of viable organisms. Positive results do not rule out co-infection with other organisms that are not detected by this assay. For Shiga toxin, this assay detects Shiga toxin 1 / Shiga toxin 2 genes (found in Shiga toxin-producing E. coli as well as Shigella dysenteriae). This test should not be used as a test of cure. Performed By: #### S TLB ####[facility] (DEFAULT)[address] [address] No Panel Informationon 08-02 Interpretation and review of laboratory results Abnormal [facility] Interpretation and review of laboratory results Normal [facility] PHOSPHATE, INORGANICon 08-02 Phosphate [Mass/Vol] 3.8 mg/dL 2.2 - 4 .6 mg/dL [facility] Phosphorous 3.8 mg/dL Normal 2.2-4.6 [facility] Comment on above: Performed By: #### I PB, CHM7, MGO, CA ####[facility] (DEFAULT)[address] [place] [address] Respiratory virus DNA+RNA NA A+probe Nom (Unsp spec)Ordered By: Neto Daniel on 08-02-2024 Adenovirus DNA JACKY+probe Nom (Unsp spec) Not detected Not Detected [facility] B. parapertussis DNA JACKY+probe Ql (Unsp spec) Not detected Not Detected [facility] B. pertussis DNA JACKY+probe Ql (Unsp spec) Not detected Not Detected [facility] C. pneumoniae DNA JACKY+probe Ql (Unsp spec) Not detected Not Detected [facility] FLUAV RNA JACKY+probe Ql (Unsp spec) Not detected Not Detected [facility] FLUBV RNA JACKY+probe Ql (Unsp spec) Not detected [facility] HCoV 229E RNA JACKY+non-probe Ql (Nph) Not detected Not Detected [facility] HCoV HKU1 RNA JACKY+non-probe Ql (Nph) Not detected Not [facility] HCoV NL63 RNA JACKY+non-probe Ql (Nph) Not detected Not Detected [facility] HCoV OC43 RNA JACKY+non-probe Ql (Nph) Not detected Not Detected [facility] hMPV A RNA JACKY+probe Ql (Unsp spec) Not detected Not [facility] Interpretation and review of laboratory results [facility] M. pneumoniae DNA JACKY+probe Ql (Unsp spec) Not detected Not [facility] Parainfluenza virus 1 RNA JACKY+probe Ql (Unsp spec) Not detected [facility] Parainfluenza virus 2 RNA JACKY+probe Ql (Unsp spec) Not detected Not Detected [facility] Parainfluenza virus 3 RNA JACKY+probe Ql (Unsp spec) Not detected Not Detected [facility] Parainfluenza virus 4 RNA JACKY+probe Ql (Unsp spec) Not detected Not Detected [facility] Rhinovirus+Enteroviru s RNA JACKY+probe Ql (Unsp spec) Not detected Not Detected [facility] RSV RNA JACKY+probe Ql (Unsp spec) Not detected Not [facility] SARS-CoV-2 (COVID-19) RNA JACKY+probe Ql (Unsp spec) Not detected NOT DETECTED [facility] Results should be us ed in conjunction with other clinical and laboratory findings. This result does not rule out co-infections with pathogens that are not screened for by the Respiratory Panel(RP). This RP assay was performed using a Film Array multiplex nucleic acid assay. [facility] TACROLIMUS LEVEL, TROUGH (PA E DRUG LEVEL)on 08-02-2024 Tacrolimus (Bld) [Mass/Vol] 10.3 ng/mL Bone Marrow Transplant: 5.0-15.0 Kidney/Pancre atic Transplant: 0 to 3 months: 8.0-10.0, 3 to 12 months: 6.0-8.0, >12 months: 4.0-6.0 [facility] Method performed is a chemiluminescent microparticle immunoasssay on the [employer] i2000. The range is based on experience at [facility] and users should be aware that target concentrations vary widely depending on concomitant therapy, time post-transplant, and desired degree of immunosuppression. [facility] Tacrolimus, Trough 10.3 ng/mL Normal Bone Veronique ow Transplant: 5.0-15.0 Kidney/Pancre atic Transplant: 0 to 3 months: 8.0-10.0, 3 to 12 months: 6.0-8.0, >12 months: 4.0-6.0 [facility] Comment on above: Order Comment: Pleas e draw at specified interval PRIOR to dose. Do not hold dose to wait for level. Specimens batched twice per day, (M-F) and once per day weekendsMethod performed is a chemiluminescent microparticle immunoasssay on the [employer] i2000.The range is based on experience at [facility] and users should be aware that target concentrations vary widely depending on concomitant therapy, time post-transplant, and desired degree of immunosuppression. Performed By: #### T ACRO ####[facility] (DEFAULT)[address] [place] [address] BLOOD CULTUREon 08-01-2024 Bacteria identified Cx Nom (Unsp spec) NO GROWTH DAY 5 OF 5 Normal [facility] Comment on above: Order Comment: 2 Bot tles (1 Set - consists of 1 Aerobic bottle and 1 Anaerobic bottle) -1st Peripheral DrawFor vacutainer method draw: Fill aerobic bottle first, then anaerobicResults may be compromised due to LOW VOLUME of the BACT\ALERT bottle UNDER 8mLs, which can be associated with decreased sensitivity. The optimal blood volume is 8-10mLs per aerobic/anaerobic blood culture bottle. Performed By: #### B LDCULT ####[facility] (DEFAULT)[address] [place] [address] Order Comment: 2 Bot tles (1 Set - consists of 1 Aerobic bottle and 1 Anaerobic bottle) -1st Peripheral DrawFor vacutainer method draw: Fill aerobic bottle first, then anaerobic Bilirubin, Directon 08-02-19 25 Bilirubin.direct [Mass/Vol] 0.15 mg/dL Normal 0.00-0.30 [facility] Comment on above: Performed By: #### L 3380.1000, L501.5101, L501.5200, L500.4050, L501.2300, L501.4700, L100.0100 ####[facility] [address] [place], [address] Blood basophils/100 leukocyt eson 08-01-2024 Basophils/100 WBC (Bld) 1 % 0-1 [facility] Blood lymphocytes/100 leukoc yteson 08-01-2024 Lymphocytes/100 WBC (Bld) 21 % 19-41 [facility] Blood metamyelocytes/100 susy kocyteson 08-01-2024 Metamyelocytes/100 WBC (Bld) 2 % High 0-1 [facility] Blood monocytes/100 leukocyt eson 08-01-2024 Monocytes/100 WBC (Bld) 8 % 0-10 [facility] Blood segmented neutrophils/ 100 leukocyteson 08-01-2024 Segmented neutrophils/100 WBC (Bld) 66 % 47-70 [facility] CALCIUMon 08-01-2024 Calcium [Mass/Vol] 8.9 mg/dL 8.6 - 10. 5 mg/dL [facility] Calcium [Mass/Vol] 8.9 mg/dL Normal 8.6-10.5 [facility] Comment on above: Performed By: #### I PB, HFP, CHM7, MGO, CA ####[facility] (DEFAULT)[address] [place] [address] NAEEM AURIS SCREEN BY PCRo n 08-01-2024 Naeem auris Screen by PCR Detected Abnormal Not Detected [facility] Comment on above: Order Comment: This test was performed using a real-time PCR assay. This test was developed, and its performance characteristics determined by [facility]. It has not been cleared or approved by the FDA. The laboratory is regulated under CLIA as qualified to perform high-complexity testing. This test is used for clinical purposes. It should not be regarded as investigational or for research. Result Comment: A po sitive colonization screen does not indicate active infection. If concerned for active infection, ID consult and clinical correlation recommended Performed By: #### L [id number], NAEEM AURIS SCREEN BY PCR ####[facility] (DEFAULT)[address] [place] [address] CBC AND ELECTRONIC DIFFon Erythrocyte distribution width (RBC) [Ratio] 17.2 % High 10.9 - 14.3 % [facility] Hematocrit (Bld) [Volume fraction] 35.8 % Low 39.6 - 48.8 % [facility] Hemoglobin (Bld) [Mass/Vol] 11.2 g/dL Low 13.4 - 16.8 g/dL [facility] MCH (RBC) [Entitic mass] 30.8 pg 26.1 - 33.3 pg [facility] MCHC (RBC) [Mass/Vol] 31.3 g/dL Low 31.9 - 36.5 g/dL [facility] MCV (RBC) [Entitic vol] 98.4 fL High 79.0 - 94.5 fL [facility] Platelet mean volume (Bld) [Entitic vol] 10.4 fL 8.7 - 12.3 fL [facility] Platelets (Bld) [#/Vol] 350 10*3/uL High 146 - 337 K/uL [facility] RBC (Bld) [#/Vol] 3.64 10*6/uL Low [facility] WBC (Bld) [#/Vol] 3.32 10*3/uL Low 3.73 - 10. 10 K/uL [facility] Hematocrit (Bld) [Volume fraction] 35.8 % Low 39.6-48.8 [facility] Comment on above: Performed By: #### L [id number] ####[facility] (DEFAULT)[address] [place] [address], [place] [address] Hemoglobin (Bld) [Mass/Vol] 11.2 g/dL Low 13.4-16.8 [facility] Comment on above: Performed By: #### L [id number] ####[facility] (DEFAULT)[address] [place] [address], [place] [address] MCV (RBC) [Entitic vol] 98.4 fL High 79.0-94.5 [facility] Comment on above: Performed By: #### L [id number] ####[facility] (DEFAULT)[address] [place] [address] Mean Cell Hgb 30.8 pg Normal 26.1-33.3 [facility] Comment on above: Performed By: #### L [id number] ####[facility] (DEFAULT)[address] [place] [address] Mean Cell Hgb Conc 31.3 g/dL Low 31.9-36.5 [facility] Comment on above: Performed By: #### L [id number] ####[facility] (DEFAULT)[address] [place] [address] Platelet mean volume (Bld) [Entitic vol] 10.4 fL Normal 8.7-12.3 [facility] Comment on above: Performed By: #### L [id number] ####[facility] (DEFAULT)[address] [place] [address] Platelets (Bld) [#/Vol] 350 10*3/uL High 146-337 [facility] Comment on above: Performed By: #### L [id number] ####[facility] (DEFAULT)[address] [place] [address] RBC (Bld) [#/Vol] 3.64 10*6/uL Low 4.38-5.83 [facility] Comment on above: Performed By: #### L [id number] ####[facility] (DEFAULT)[address] [place] [address] RBC Distribution 17.2 % High 10.9-14.3 [facility] Comment on above: Performed By: #### L [id number] ####[facility] (DEFAULT)[address] [place] [address] WBC (Bld) [#/Vol] 3.32 10*3/uL Low 3.73-10.10 [facility] Comment on above: Performed By: #### L [id number] ####[facility] (DEFAULT)[address] [place] [address] CHEM 7 (LYTES,BUN,CREA,GLUC) on 08-01-2024 Anion gap [Moles/Vol] 13 mmol/L 7 - 17 mmol/L [facility] Chloride [Moles/Vol] 103 mmol/L 98 - 10 8 mmol/L [facility] CO2 [Moles/Vol] 26 mmol/L 21 - 31 mmol/L [facility] Creatinine [Mass/Vol] 0.87 mg/dL 0.70 - 1.30 mg/dL [facility] eGFR, CKD-EPI, Male - PINF [facility] Comment on above: Reported eGFR is bas ed on the CKD-EPI 2020 equation using creatinine, age, and sex. Glucose [Mass/Vol] 92 mg/dL 70 - 179 mg/dL [facility] Osmolality Calc [Osmolality] 294 [facility] Potassium [Moles/Vol] 4.3 mmol/L 3.5 - 5.0 mmol/L [facility] Sodium [Moles/Vol] 138 mmol/L 135 - 145 mmol/L [facility] Urea nitrogen [Mass/Vol] 26 mg/dL High 7 - 25 mg/dL [facility] Urea nitrogen/Creatinine [Mass ratio] 30 mg/mg [facility] Anion gap [Moles/Vol] 13 mmol/L Normal 7-17 [facility] Comment on above: Performed By: #### I PB, HFP, CHM7, MGO, CA ####[facility] (DEFAULT)[address] [place] [address] Chloride [Moles/Vol] 103 mmol/L Normal 98-108 [facility] Comment on above: Performed By: #### I PB, HFP, CHM7, MGO, CA ####[facility] (DEFAULT)[address] [facility] [place] [address] CO2 [Moles/Vol] 26 mmol/L Normal 21-31 [facility] Comment on above: Performed By: #### I PB, HFP, CHM7, MGO, CA ####[facility] (DEFAULT)[address] [place] [address] Creatinine [Mass/Vol] 0.87 mg/dL Normal 0.70-1.30 [facility] Comment on above: Performed By: #### I PB, HFP, CHM7, MGO, CA ####[facility] (DEFAULT)[address] [place] [address] eGFR, CKD-EPI, Male > Normal >=60 [facility] Comment on above: Result Comment: Repo rted eGFR is based on the CKD-EPI 2020 equation using creatinine, age, and sex. Performed By: #### I PB, HFP, CHM7, MGO, CA ####[facility] (DEFAULT)[address] [facility] [place] [address] Glucose [Mass/Vol] 92 mg/dL Normal Nonfastin -179 mg/dL; Fastin-99 [facility] Comment on above: Performed By: #### I PB, HFP, CHM7, MGO, CA ####[facility] (DEFAULT)[address] [place] [address] Osmolality [Osmolality] 294 mosm/kg Normal 278-305 [facility] Comment on above: Performed By: #### I PB, HFP, CHM7, MGO, CA ####[facility] (DEFAULT)[address] [place] [address] Potassium [Moles/Vol] 4.3 mmol/L Normal 3.5-5.0 [facility] Comment on above: Performed By: #### I PB, HFP, CHM7, MGO, CA ####[facility] (DEFAULT)[address] [place] [address] Sodium [Moles/Vol] 138 mmol/L Normal 135-145 [facility] Comment on above: Performed By: #### I PB, HFP, CHM7, MGO, CA ####[facility] (DEFAULT)[address] [place] [address] Urea nitrogen [Mass/Vol] 26 mg/dL High 7-25 [facility] Comment on above: Performed By: #### I PB, HFP, CHM7, MGO, CA ####[facility] (DEFAULT)[address] [place] [address] Urea nitrogen/Creatinine [Mass ratio] 30 mg/mg Normal [facility] Comment on above: Performed By: #### I PB, HFP, CHM7, MGO, CA ####[facility] (DEFAULT)[address] [place] [address] Comprehensive Metabolic Prof ilon 08-01-2024 Albumin [Mass/Vol] 4.0 g/dL Normal 3.4-4.8 [facility] Comment on above: Performed By: #### L 3380.1000, L501.5101, L501.5200, L500.4050, L501.2300, L501.4700, L100.0100 ####[facility] [address] [place], [address] Albumin/Globulin [Mass ratio] 1.4 {ratio} Normal 0.9-2.4 [facility] Comment on above: Performed By: #### L 3380.1000, L501.5101, L501.5200, L500.4050, L501.2300, L501.4700, L100.0100 ####[facility] [address] [place], [address] ALK PHOS 276 U/L High 40-129 [facility] Comment on above: Performed By: #### L 3380.1000, L501.5101, L501.5200, L500.4050, L501.2300, L501.4700, L100.0100 ####[facility] [address] [place], [address] ALT [Catalytic activity/Vol] 76 U/L High <=46 [facility] Comment on above: Performed By: #### L 3380.1000, L501.5101, L501.5200, L500.4050, L501.2300, L501.4700, L100.0100 ####[facility] [address] [place], [address] AST [Catalytic activity/Vol] 45 U/L High <=37 [facility] Comment on above: Performed By: #### L 3380.1000, L501.5101, L501.5200, L500.4050, L501.2300, L501.4700, L100.0100 ####[facility] [address] [place], [address] Bilirubin [Mass/Vol] 0.24 mg/dL Normal 0.00-1.30 [facility] Comment on above: Performed By: #### L 3380.1000, L501.5101, L501.5200, L500.4050, L501.2300, L501.4700, L100.0100 ####[facility] [address] [place], [address] BUN/CRE 24.7 RATIO High 10-20 [facility] Comment on above: Performed By: #### L 3380.1000, L501.5101, L501.5200, L500.4050, L501.2300, L501.4700, L100.0100 ####[facility] [address] [place], [address] Calcium [Mass/Vol] 9.2 mg/dL Normal 7.6-11.0 [facility] Comment on above: Performed By: #### L 3380.1000, L501.5101, L501.5200, L500.4050, L501.2300, L501.4700, L100.0100 ####[facility] [address] [place], [address] Chloride [Moles/Vol] 102 mmol/L Normal 98-108 [facility] Comment on above: Performed By: #### L 3380.1000, L501.5101, L501.5200, L500.4050, L501.2300, L501.4700, L100.0100 ####[facility] [address] [place], [address] CO2 [Moles/Vol] 24.6 mmol/L Normal 21.0-32.0 [facility] Comment on above: Performed By: #### L 3380.1000, L501.5101, L501.5200, L500.4050, L501.2300, L501.4700, L100.0100 ####[facility] [address] [place], [address] Creatinine [Mass/Vol] 0.87 mg/dL Normal 0.70-1.20 [facility] Comment on above: Performed By: #### L 3380.1000, L501.5101, L501.5200, L500.4050, L501.2300, L501.4700, L100.0100 ####[facility] [address] [place], [address] GAP 11 Normal 5-15 [facility] Comment on above: Performed By: #### L 3380.1000, L501.5101, L501.5200, L500.4050, L501.2300, L501.4700, L100.0100 ####[facility] [address] [place], [address] GFR/1.73 sq M.predicted among non-blacks MDRD (S/P/Bld) [Vol rate/Area] 99 mL/min/{1.73_m2} Normal >60 [facility] Comment on above: Result Comment: mL/m in/1.73m2 CKD-EPI Creatinine Equation (2020) Performed By: #### L 3380.1000, L501.5101, L501.5200, L500.4050, L501.2300, L501.4700, L100.0100 ####[facility] [address] [place], [address] Globulin (S) [Mass/Vol] 2.8 g/dL Normal 2.2-4.2 [facility] Comment on above: Performed By: #### L 3380.1000, L501.5101, L501.5200, L500.4050, L501.2300, L501.4700, L100.0100 ####[facility] [address] [place], [address] Glucose [Mass/Vol] 97 mg/dL Normal 70-99 [facility] Comment on above: Performed By: #### L 3380.1000, L501.5101, L501.5200, L500.4050, L501.2300, L501.4700, L100.0100 ####[facility] [address] [place], [address] Potassium [Moles/Vol] 5.4 mmol/L High 3.3-5.1 [facility] Comment on above: Performed By: #### L 3380.1000, L501.5101, L501.5200, L500.4050, L501.2300, L501.4700, L100.0100 ####[facility] [address] [place], [address] Sodium [Moles/Vol] 138 mmol/L Normal 133-145 [facility] Comment on above: Performed By: #### L 3380.1000, L501.5101, L501.5200, L500.4050, L501.2300, L501.4700, L100.0100 ####[facility] [address] [place], [address] T PROT 6.7 g/dL Normal 5.9-8.4 [facility] Comment on above: Performed By: #### L 3380.1000, L501.5101, L501.5200, L500.4050, L501.2300, L501.4700, L100.0100 ####[facility] [address] [place], [address] Urea nitrogen [Mass/Vol] 21 mg/dL High 4-19 [facility] Comment on above: Performed By: #### L 3380.1000, L501.5101, L501.5200, L500.4050, L501.2300, L501.4700, L100.0100 ####[facility] [address] [place], [address] Erythrocyte morphology asses smenton 08-01-2024 RBC morphology finding Nom (Bld) NORM C+C NORMAL NORM C&C [facility] FUNGAL ID/MICon 08-01-2024 Bacteria identified Cx Nom (Unsp spec) Normal [facility] Comment on above: Result Comment: Grow [id number] AURISCANDIDA AURISCandida aurisIdentified by PCR Performed By: #### L [id number], NAEEM AURIS SCREEN BY PCR ####[facility] (DEFAULT)[address] [place] [address] HEPATIC FUNCTION PANELon Albumin [Mass/Vol] 4 g/dL 3.5 - 5.0 g/dL [facility] ALP [Catalytic activity/Vol] 229 U/L High 32 - 126 U/L [facility] ALT [Catalytic activity/Vol] 61 U/L High 10 - 52 U/L [facility] AST [Catalytic activity/Vol] 39 U/L 10 - 39 U/L [facility] Bilirubin [Mass/Vol] 0.4 mg/dL NINF - 1.5 mg/dL [facility] Bilirubin.direct [Mass/Vol] 0.1 mg/dL NINF - 0.3 mg/dL [facility] Protein [Mass/Vol] 6.9 g/dL 6.4 - 8.3 g/dL [facility] Albumin [Mass/Vol] 4.0 g/dL Normal 3.5-5.0 [facility] Comment on above: Performed By: #### I PB, HFP, CHM7, MGO, CA ####[facility] (DEFAULT)[address] [place] [address] ALP [Catalytic activity/Vol] 229 U/L High 32-126 [facility] Comment on above: Performed By: #### I PB, HFP, CHM7, MGO, CA ####[facility] (DEFAULT)[address] [place] [address] ALT [Catalytic activity/Vol] 61 U/L High 10-52 [facility] Comment on above: Performed By: #### I PB, HFP, CHM7, MGO, CA ####[facility] (DEFAULT)[address] [place] [address] AST [Catalytic activity/Vol] 39 U/L Normal 10-39 [facility] Comment on above: Performed By: #### I PB, HFP, CHM7, MGO, CA ####[facility] (DEFAULT)[address] [place] [address] Bilirubin [Mass/Vol] 0.4 mg/dL Normal <1.5 [facility] Comment on above: Performed By: #### I PB, HFP, CHM7, MGO, CA ####[facility] (DEFAULT)[address] [place] [address] Bilirubin.indirect [Mass/Vol] 0.1 mg/dL Normal <0.3 [facility] Comment on above: Performed By: #### I PB, HFP, CHM7, MGO, CA ####[facility] (DEFAULT)[address] [place] [address] Protein [Mass/Vol] 6.9 g/dL Normal 6.4-8.3 [facility] Comment on above: Performed By: #### I PB, HFP, CHM7, MGO, CA ####[facility] (DEFAULT)[address] [place] [address] L501.5101on 08-01-2024 GGTP 134 IU/L Abnormal 0-65 [facility] Comment on above: Order Comment: Test( s) [id number] (FK506), Bloodwas developed and its performance characteristicsdetermined by [facility] [place]. It has not been cleared or approvedby the Food and Drug Administration. Result Comment: Perf ormed at: - [address] [id number] Director: Sergio Machado MD, Phone: [phone] at: - [facility] [id number] Director: Red Graham PhD, Phone: [phone] Performed By: #### L 701.4755, L3380.1000, L501.5200, L500.4050, L501.5101, L100.0100, L501.2300 ####[facility] [address] [place], [address] MAGNESIUMon 08-01-2024 Magnesium [Mass/Vol] 1.6 mg/dL 1.6 - 2 .6 mg/dL [facility] Magnesium [Mass/Vol] 1.6 mg/dL Normal 1.6-2.6 [facility] Comment on above: Performed By: #### I PB, HFP, CHM7, MGO, CA ####[facility] (DEFAULT)[address] [place] [address] MANUAL DIFFon 08-01-2024 Band form neutrophils/100 WBC (Bld) 0 % [facility] Basophils (Bld) [#/Vol] 0 10*3/uL 0.00 - 0.09 K/uL [facility] Basophils/100 WBC (Bld) 0 % [facility] Differential cell count method Nom (Bld) Manual Differential [facility] Eosinophils (Bld) [#/Vol] 0.09 10*3/uL [facility] Eosinophils/100 WBC (Bld) 2.6 % [facility] Lymphocytes (Bld) [#/Vol] 0.91 10*3/uL 0.83 - 3.57 K/uL [facility] Lymphocytes/100 WBC (Bld) 27.4 % [facility] Monocytes (Bld) [#/Vol] 0.09 10*3/uL Low 0.24 - 0.93 K/uL [facility] Monocytes/100 WBC (Bld) 2.6 % [facility] Neutrophils (Bld) [#/Vol] 2.24 10*3/uL 1.57 - 6.19 K/uL [facility] Platelets Estimate (Bld) [#/Vol] Automated platelet count confirmed by manual slide review [facility] RBC morphology finding Nom (Bld) RBC INDICES CONFIRMED WITH MANUAL SLIDE REVIEW [facility] Segmented neutrophils/100 WBC (Bld) 67.4 % [facility] Magnesiumon 08-01-2024 Magnesium [Mass/Vol] 1.6 mg/dL Normal 1.5-2.2 [facility] Comment on above: Performed By: #### L 3380.1000, L501.5101, L501.5200, L500.4050, L501.2300, L501.4700, L100.0100 ####[facility] [address] [place], [address] Myelocyte %on 08-01-2024 Myelocytes/100 WBC (Bld) 2 % High 0-0 [facility] No Panel Informationon 08-01 Interpretation and review of laboratory results Abnormal [facility] Interpretation and review of laboratory results Abnormal [facility] Interpretation and review of laboratory results Normal [facility] PHOSPHATE, INORGANICon 08-01 Phosphate [Mass/Vol] 3.3 mg/dL 2.2 - 4 .6 mg/dL [facility] Phosphorous 3.3 mg/dL Normal 2.2-4.6 [facility] Comment on above: Performed By: #### I PB, HFP, CHM7, MGO, CA ####[facility] (DEFAULT)[address] [place] [address] PT,INR,PTTon 08-01-2024 aPTT Coag (PPP) [Time] 33.1 s [facility] INR Coag (Bld) [Relative time] 1.1 {INR} 0.9 - 1.1 [facility] Interpretation and review of laboratory results Abnormal [facility] PT Coag (PPP) [Time] 14.5 s High [facility] aPTT Coag (Bld) [Time] 33.1 s Normal 24.0-34.3 [facility] Comment on above: Performed By: #### P TPTT ####[facility] (DEFAULT)[address] [place] [address] INR Coag (PPP) [Relative time] 1.1 {INR} Normal 0.9-1.1 [facility] Comment on above: Performed By: #### P TPTT ####[facility] (DEFAULT)[address] [place] [address] PT Coag (PPP) [Time] 14.5 s High 11.9-14.2 [facility] Comment on above: Performed By: #### P TPTT ####[facility] (DEFAULT)[address] [place] [address] Phosphoruson 08-01-2024 Phosphate [Mass/Vol] 2.5 mg/dL Low 2.7-4.5 [facility] Comment on above: Performed By: #### L 3380.1000, L501.5101, L501.5200, L500.4050, L501.2300, L501.4700, L100.0100 ####[facility] [address] [place], [place], [address] Platelet estimateon 08-02-19 25 Platelets LM Ql (Bld) ADEQUATE ADEQ [facility] Review by pathologiston Pathologist review Deandre (Unsp spec) [Interp] Reviewed [facility] Comment on above: Previous reported re sult: Patricia delgado Edited by: SAMIR on 08/12/24:1553SEE REPORT IN PATIENT'S EMR AMENDED REPORT 08/12/24 1553 PATH REV previously reported as: Patricia delgado SCREEN, VREon 08-01-2024 Vancomycin Resistant Enterococcus Negative Normal Negative [facility] Comment on above: Order Comment: Colle ct with an ESWAB; requires 1 perirectal site. Performed By: #### S CV ####[facility] (DEFAULT)[address] [place] [address] Tacrolimus (Prograf)on 08-01 Tacrolimus (Bld) [Mass/Vol] 8.7 ng/mL Normal 5.0-20.0 [facility] Comment on above: Order Comment: Test( s) [id number] (FK506), Bloodwas developed and its performance characteristicsdetermined by [facility] [employer]. It has not been cleared or approvedby the Food and Drug Administration. Result Comment: Targ et steady state trough concentration forTacrolimus varies based on type of organ transplantimmunosuppressive protocol and other patient specificfactors. Tacrolimus trough concentrations should beinterpreted in conjunction with clinical assessmentsof rejection and tolerability. Values obtained withdifferent assay methods cannot be used interchangeablydue to differences in assay methods and cross-reactivtywith metabolites, nor should correction factors beapplied. Therefore, consistent use of one assay forindividual patients is recommended.Detection Limit = 0.5 ng/mLPerformed by LC-MS/MS technology. Performed By: #### L 501.4700, L3380.1000, L501.5200, L500.4050, L501.5101, L100.0100, L501.2300 ####[facility] [address] [place], [place], [id number] Total cell counton 5 Cells counted [employer] (Bld/Tiss) [#] 100 MANUAL DIFF [facility] URINALYSIS REFLEX TO CULTURE PERFORMABLEon 08-01-2024 Appearance (U) Clear Clear [facility] Bacteria LM Ql (Urine sed) ABSENT ABSENT [facility] Color (U) Yellow Yellow [facility] Epithelial cells.squamous LM Ql (Urine sed) 0-2/hpf 0-2/hpf, 3-5/hpf = 1+ [facility] Glucose Test strip (U) [Mass/Vol] Negative Negative [facility] [facility] Interpretation and review of laboratory results Abnormal [facility] Ketones (U) [Mass/Vol] Negative Negative [facility] Leukocyte esterase Test strip Ql (U) Negative Negative [facility] Nitrite Ql (U) Negative Negative [facility] pH (U) 5.5 [pH] 5.0 - 7.0 [facility] Protein (U) [Mass/Vol] Trace Abnormal Negative [facility] RBC (U) [#/Vol] Negative Negative [facility] RBC LM.HPF (Urine sed) [#/Area] 0-2 [facility] Specific gravity (U) [Rel density] 1.031 1.001 - 1.035 [facility] Urobilinogen (U) [Mass/Vol] 0.2 E.U./dL 0.2 E.U/dL, 1.0 E.U/dL [facility] WBC LM.HPF (Urine sed) [#/Area] 0 - 5 U [facility] Appearance (U) Clear Normal Clear [facility] Comment on above: Order Comment: For i ndwelling catheters, specimen collection is acceptable on catheter day 1 and 2 only. ? Performed By: #### U [id number] ####[facility] (DEFAULT)[address] [place] [address] Bacteria ABSENT Normal ABSENT [facility] Comment on above: Order Comment: For i ndwelling catheters, specimen collection is acceptable on catheter day 1 and 2 only. ? Performed By: #### U [id number] ####[facility] (DEFAULT)[address] [place] [address] Blood Urine Negative Normal Negative [facility] Comment on above: Order Comment: For i ndwelling catheters, specimen collection is acceptable on catheter day 1 and 2 only. ? Performed By: #### U [id number] ####[facility] (DEFAULT)[address] [place] [address] Color (U) Yellow Normal Yellow [facility] Comment on above: Order Comment: For i ndwelling catheters, specimen collection is acceptable on catheter day 1 and 2 only. ? Performed By: #### U [id number] ####[facility] (DEFAULT)[address] [place] [address] Glucose Ql (U) Negative Normal Negative [facility] Comment on above: Order Comment: For i ndwelling catheters, specimen collection is acceptable on catheter day 1 and 2 only. ? Performed By: #### U [id number] ####[facility] (DEFAULT)[address] [place] [address] Ketones Ql (U) Negative Normal Negative [facility] Comment on above: Order Comment: For i ndwelling catheters, specimen collection is acceptable on catheter day 1 and 2 only. ? Performed By: #### U [id number] ####[facility] (DEFAULT)[address] [place] [address] Leukocyte esterase Test strip Ql (U) Negative Normal Negative [facility] Comment on above: Order Comment: For i ndwelling catheters, specimen collection is acceptable on catheter day 1 and 2 only. ? Performed By: #### U [id number] ####[facility] (DEFAULT)[address] [facility] [place] [address] Nitrites Urine Negative Normal Negative [facility] Comment on above: Order Comment: For i ndwelling catheters, specimen collection is acceptable on catheter day 1 and 2 only. ? Performed By: #### U [id number] ####[facility] (DEFAULT)[address] [place] [address] pH (U) 5.5 [pH] Normal 5.0-7.0 [facility] Comment on above: Order Comment: For i ndwelling catheters, specimen collection is acceptable on catheter day 1 and 2 only. ? Performed By: #### U [id number] ####[facility] (DEFAULT)[address] [place] [address] Protein Urine Trace Abnormal Negative [facility] Comment on above: Order Comment: For i ndwelling catheters, specimen collection is acceptable on catheter day 1 and 2 only. ? Performed By: #### U [id number] ####[facility] (DEFAULT)[address] [facility] [place] [address] RBC Urine 0-2 Normal 0-2 [facility] Comment on above: Order Comment: For i ndwelling catheters, specimen collection is acceptable on catheter day 1 and 2 only. ? Performed By: #### U [id number] ####[facility] (DEFAULT)[address] [place] [address], [place] [address] Specific [place] Urine 1.031 Normal 1.001-1.035 [facility] Comment on above: Order Comment: For i ndwelling catheters, specimen collection is acceptable on catheter day 1 and 2 only. ? Performed By: #### U [id number] ####[facility] (DEFAULT)[address] [place] [address] Squamous/Epithelial Cells, Urine 0-2/hpf Normal 0-2/hpf, 3-5/hpf = 1+ [facility] Comment on above: Order Comment: For i ndwelling catheters, specimen collection is acceptable on catheter day 1 and 2 only. ? Performed By: #### U [id number] ####[facility] (DEFAULT)[address] [place] [address], [place] [address] Urobilinogen Urine 0.2 E.U./dL Normal 0.2 E.U/d L, 1.0 E.U/dL [facility] Comment on above: Order Comment: For i ndwelling catheters, specimen collection is acceptable on catheter day 1 and 2 only. ? Performed By: #### U [id number] ####[facility] (DEFAULT)[address] [place] [address], [place] [address] WBC Urine 0 - 5 Normal 0 - 5 [facility] Comment on above: Order Comment: For i ndwelling catheters, specimen collection is acceptable on catheter day 1 and 2 only. ? Performed By: #### U [id number] ####[facility] (DEFAULT)[address] [place] [address], [place] [address] L501.5101on 07-29-2024 GGTP 153 IU/L Abnormal 0-65 [facility] Comment on above: Order Comment: Test( s) 731896-[id number] (FK506), Bloodwas developed and its performance characteristicsdetermined by [facility]. It has not been cleared or approvedby the Food and Drug Administration. Result Comment: Perf ormed at: [facility] [address] [place], [place] [id number] Director: Sergio Machado MD, Phone: [phone] at: [facility] [place], [place] [id number] Director: Red Graham PhD, Phone: [phone] Performed By: #### L 501.5101, L501.2300, L500.4050, L100.0100, L3380.1000, L501.4700, L501.5200 ####[facility] [address] [place], [address] Tacrolimus (Prograf)on 07-29 Tacrolimus (Bld) [Mass/Vol] 8.5 ng/mL Normal 5.0-20.0 [facility] Comment on above: Order Comment: Test( s) [id number] (FK506), Bloodwas developed and its performance characteristicsdetermined by [facility]. It has not been cleared or approvedby the Food and Drug Administration. Result Comment: Targ et steady state trough concentration forTacrolimus varies based on type of organ transplantimmunosuppressive protocol and other patient specificfactors. Tacrolimus trough concentrations should beinterpreted in conjunction with clinical assessmentsof rejection and tolerability. Values obtained withdifferent assay methods cannot be used interchangeablydue to differences in assay methods and cross-reactivtywith metabolites, nor should correction factors beapplied. Therefore, consistent use of one assay forindividual patients is recommended.Detection Limit = 0.5 ng/mLPerformed by LC-MS/MS technology. Performed By: #### L 501.5101, L501.2300, L500.4050, L100.0100, L3380.1000, L501.4700, L501.5200 ####[facility] [address] [place], [address] Absolute lymphocyte counton 07-28-2024 Lymphocytes Auto (Unsp spec) [#/Vol] 1.05 10*3/uL 0.83-4.51 [facility] Absolute neutrophil counton 07-28-2024 Neutrophils (Bld) [#/Vol] 2.1 10*3/uL 2.0-7.7 [facility] Anion gap in Serum or Plasma on 07-28-2024 Anion gap [Moles/Vol] 10 mmol/L 5-15 [facility] Automated lymphocyte count a s percentage of total leukocyteson 07-28-2024 Lymphocytes/100 WBC Auto (Unsp spec) 29.4 % 19-41 [facility] BUN/creatinine ratioon 07-28 Urea nitrogen/Creatinine [Mass ratio] 26.3 mg/mg High 10-20 [facility] Basophil percentageon 2024 Basophils/100 WBC (Bld) 1.7 % High 0-1 [facility] Bilirubin directon 5 Bilirubin.direct [Mass/Vol] 0.14 mg/dL 0.00-0.30 [facility] Bilirubin, Directon 07-29-19 25 Bilirubin.direct [Mass/Vol] 0.14 mg/dL Normal 0.00-0.30 [facility] Comment on above: Performed By: #### L 501.4700, L3380.1000, L501.5200, L500.4050, L501.5101, L100.0100, L501.2300 ####[facility] [address] [place], [place], [address](154) Bilirubin, totalon 5 Bilirubin [Mass/Vol] 0.25 mg/dL 0.00-1.30 [facility] CBC W/Diff, Automatedon 07-01 Absolute Lymph 1.05 X10 3/uL Normal 0.83-4.51 [facility] Comment on above: Performed By: #### L 501.4700, L3380.1000, L501.5200, L500.4050, L501.5101, L100.0100, L501.2300 ####[facility] [address] [place], [address] Absolute Neut 2.1 X10 3/uL Normal 2.0-7.7 [facility] Comment on above: Performed By: #### L 501.4700, L3380.1000, L501.5200, L500.4050, L501.5101, L100.0100, L501.2300 ####[facility] [address] [place], [address] Basophils/100 WBC (Bld) 1.7 % High 0-1 [facility] Comment on above: Performed By: #### L 501.4700, L3380.1000, L501.5200, L500.4050, L501.5101, L100.0100, L501.2300 ####[facility] [address] [place], [address] Eosinophils/100 WBC (Bld) 0.8 % Normal 0-5 [facility] Comment on above: Performed By: #### L 501.4700, L3380.1000, L501.5200, L500.4050, L501.5101, L100.0100, L501.2300 ####[facility] [address] [place], [address] Erythrocyte distribution width (RBC) [Ratio] 17.2 % High 11.6-14.6 [facility] Comment on above: Performed By: #### L 501.4700, L3380.1000, L501.5200, L500.4050, L501.5101, L100.0100, L501.2300 ####[facility] [address] [place], [address] Hematocrit (Bld) [Volume fraction] 35.5 % Low 40-54 [facility] Comment on above: Performed By: #### L 501.4700, L3380.1000, L501.5200, L500.4050, L501.5101, L100.0100, L501.2300 ####[facility] [address] [place], [address] Hemoglobin (Bld) [Mass/Vol] 11.2 g/dL Low 13.0-16.5 [facility] Comment on above: Performed By: #### L 501.4700, L3380.1000, L501.5200, L500.4050, L501.5101, L100.0100, L501.2300 ####[facility] [address] [place], [address] IG% 0.800 Normal 0.0-0.9 [facility] Comment on above: Result Comment: IG% - Immature Granulocytes (promyelocytes, myelocytes andmetamyelocytes) > 1% indicates that a LEFT SHIFT is Present. Performed By: #### L 501.4700, L3380.1000, L501.5200, L500.4050, L501.5101, L100.0100, L501.2300 ####[facility] [address] [place], [address] Lymphocytes/100 WBC (Bld) 29.4 % Normal 19-41 [facility] Comment on above: Performed By: #### L 501.4700, L3380.1000, L501.5200, L500.4050, L501.5101, L100.0100, L501.2300 ####[facility] [address] [place], [address] MCH (RBC) [Entitic mass] 31.3 pg Normal 27.0-32.0 [facility] Comment on above: Performed By: #### L 501.4700, L3380.1000, L501.5200, L500.4050, L501.5101, L100.0100, L501.2300 ####[facility] [address] [place], [address] MCHC (RBC) [Mass/Vol] 31.5 g/dL Low 32-36 [facility] Comment on above: Performed By: #### L 501.4700, L3380.1000, L501.5200, L500.4050, L501.5101, L100.0100, L501.2300 ####[facility] [address] [place], [address] MCV (RBC) [Entitic vol] 99.2 fL High 80-94 [facility] Comment on above: Performed By: #### L 501.4700, L3380.1000, L501.5200, L500.4050, L501.5101, L100.0100, L501.2300 ####[facility] [address] [place], [address] Monocytes/100 WBC (Bld) 9.2 % Normal 0-10 [facility] Comment on above: Performed By: #### L 501.4700, L3380.1000, L501.5200, L500.4050, L501.5101, L100.0100, L501.2300 ####[facility] [address] [place], [address] Neutrophils/100 WBC (Bld) 58.1 % Normal 47-70 [facility] Comment on above: Performed By: #### L 501.4700, L3380.1000, L501.5200, L500.4050, L501.5101, L100.0100, L501.2300 ####[facility] [address] [place], [address] Nucleated RBC (Bld) [#/Vol] 0 10*3/uL Normal 0-5 [facility] Comment on above: Performed By: #### L 501.4700, L3380.1000, L501.5200, L500.4050, L501.5101, L100.0100, L501.2300 ####[facility] [address] [place], [address] Platelet mean volume (Bld) [Entitic vol] 10.1 fL Normal 6.2-12.0 [facility] Comment on above: Performed By: #### L 501.4700, L3380.1000, L501.5200, L500.4050, L501.5101, L100.0100, L501.2300 ####[facility] [address] [place], [address] Platelets (Bld) [#/Vol] 335 10*3/uL Normal 150-450 [facility] Comment on above: Performed By: #### L 501.4700, L3380.1000, L501.5200, L500.4050, L501.5101, L100.0100, L501.2300 ####[facility] [address] [place], [address] RBC (Bld) [#/Vol] 3.58 10*6/uL Low 4.6-6.2 [facility] Comment on above: Performed By: #### L 501.4700, L3380.1000, L501.5200, L500.4050, L501.5101, L100.0100, L501.2300 ####[facility] [address] [place], [address] RDW SD 62.9 fl High 35.1-43.9 [facility] Comment on above: Performed By: #### L 501.4700, L3380.1000, L501.5200, L500.4050, L501.5101, L100.0100, L501.2300 ####[facility] [address] [place], [address] WBC (Bld) [#/Vol] 3.6 10*3/uL Low 4.4-11.0 [facility] Comment on above: Performed By: #### L 501.4700, L3380.1000, L501.5200, L500.4050, L501.5101, L100.0100, L501.2300 ####[facility] [address] [place], [address] Carbon dioxide, total [Moles /volume] in Central venous bloodon 07-28-2024 CO2 [Moles/Vol] 25.4 mmol/L 21.0-32.0 [facility] Chloride assayon 07-28-2024 Chloride [Moles/Vol] 104 mmol/L 98-108 [facility] Comprehensive Metabolic Prof ilon 07-28-2024 Albumin [Mass/Vol] 4.0 g/dL Normal 3.4-4.8 [facility] Comment on above: Performed By: #### L 501.4700, L3380.1000, L501.5200, L500.4050, L501.5101, L100.0100, L501.2300 ####[facility] [address] [place], [address] Albumin/Globulin [Mass ratio] 1.5 {ratio} Normal 0.9-2.4 [facility] Comment on above: Performed By: #### L 501.4700, L3380.1000, L501.5200, L500.4050, L501.5101, L100.0100, L501.2300 ####[facility] [address] [place], [address] ALK PHOS 212 U/L High 40-129 [facility] Comment on above: Performed By: #### L 501.4700, L3380.1000, L501.5200, L500.4050, L501.5101, L100.0100, L501.2300 ####[facility] [address] [place], [address] ALT [Catalytic activity/Vol] 36 U/L Normal <=46 [facility] Comment on above: Performed By: #### L 501.4700, L3380.1000, L501.5200, L500.4050, L501.5101, L100.0100, L501.2300 ####[facility] [address] [place], [address] AST [Catalytic activity/Vol] 23 U/L Normal <=37 [facility] Comment on above: Performed By: #### L 501.4700, L3380.1000, L501.5200, L500.4050, L501.5101, L100.0100, L501.2300 ####[facility] [address] [place], [address] Bilirubin [Mass/Vol] 0.25 mg/dL Normal 0.00-1.30 [facility] Comment on above: Performed By: #### L 501.4700, L3380.1000, L501.5200, L500.4050, L501.5101, L100.0100, L501.2300 ####[facility] [address] [place], [address] BUN/CRE 26.3 RATIO High 10-20 [facility] Comment on above: Performed By: #### L 501.4700, L3380.1000, L501.5200, L500.4050, L501.5101, L100.0100, L501.2300 ####[facility] [address] [place], [address] Calcium [Mass/Vol] 9.7 mg/dL Normal 7.6-11.0 [facility] Comment on above: Performed By: #### L 501.4700, L3380.1000, L501.5200, L500.4050, L501.5101, L100.0100, L501.2300 ####[facility] [address] [place], [address] Chloride [Moles/Vol] 104 mmol/L Normal 98-108 [facility] Comment on above: Performed By: #### L 501.4700, L3380.1000, L501.5200, L500.4050, L501.5101, L100.0100, L501.2300 ####[facility] [address] [place], [address] CO2 [Moles/Vol] 25.4 mmol/L Normal 21.0-32.0 [facility] Comment on above: Performed By: #### L 501.4700, L3380.1000, L501.5200, L500.4050, L501.5101, L100.0100, L501.2300 ####[facility] [address] [place], [address] Creatinine [Mass/Vol] 0.84 mg/dL Normal 0.70-1.20 [facility] Comment on above: Performed By: #### L 501.4700, L3380.1000, L501.5200, L500.4050, L501.5101, L100.0100, L501.2300 ####[facility] [address] [place], [address] GAP 10 Normal 5-15 [facility] Comment on above: Performed By: #### L 501.4700, L3380.1000, L501.5200, L500.4050, L501.5101, L100.0100, L501.2300 ####[facility] [address] [place], [address] GFR/1.73 sq M.predicted among non-blacks MDRD (S/P/Bld) [Vol rate/Area] 100 mL/min/{1.73_m2} Normal >60 [facility] Comment on above: Result Comment: mL/m in/1.73m2 CKD-EPI Creatinine Equation (2020) Performed By: #### L 501.4700, L3380.1000, L501.5200, L500.4050, L501.5101, L100.0100, L501.2300 ####[facility] [address] [place], [address] Globulin (S) [Mass/Vol] 2.7 g/dL Normal 2.2-4.2 [facility] Comment on above: Performed By: #### L 501.4700, L3380.1000, L501.5200, L500.4050, L501.5101, L100.0100, L501.2300 ####[facility] [address] [place], [address] Glucose [Mass/Vol] 93 mg/dL Normal 70-99 [facility] Comment on above: Performed By: #### L 501.4700, L3380.1000, L501.5200, L500.4050, L501.5101, L100.0100, L501.2300 ####[facility] [address] [place], [address] Potassium [Moles/Vol] 4.5 mmol/L Normal 3.3-5.1 [facility] Comment on above: Performed By: #### L 501.4700, L3380.1000, L501.5200, L500.4050, L501.5101, L100.0100, L501.2300 ####[facility] [address] [place], [address] Sodium [Moles/Vol] 140 mmol/L Normal 133-145 [facility] Comment on above: Performed By: #### L 501.4700, L3380.1000, L501.5200, L500.4050, L501.5101, L100.0100, L501.2300 ####[facility] [address] [place], [address] T PROT 6.7 g/dL Normal 5.9-8.4 [facility] Comment on above: Performed By: #### L 501.4700, L3380.1000, L501.5200, L500.4050, L501.5101, L100.0100, L501.2300 ####[facility] [address] [place], [address] Urea nitrogen [Mass/Vol] 22 mg/dL High 4-19 [facility] Comment on above: Performed By: #### L 501.4700, L3380.1000, L501.5200, L500.4050, L501.5101, L100.0100, L501.2300 ####[facility] [address] [place], [address] Eosinophil percentageon 07-01 Eosinophils/100 WBC (Bld) 0.8 % 0-5 [facility] Erythrocyte distribution wid th ratioon 07-28-2024 Erythrocyte distribution width (RBC) [Ratio] 17.2 % High 11.6-14.6 [facility] Erythrocyte distribution wid th standard deviationon 07-28-2024 Erythrocyte distribution width (RBC) [Ratio] 62.9 fl High 35.1-43.9 [facility] Gamma glutamyl transferase ( GGT) measurementon 07-28-2024 Amylase [Catalytic activity/Vol] 134 U/L High 0-65 [facility] Comment on above: Performed at: [address] [id number] Director: Sergio Machado MD, Phone: [phone] at: - [facility] [id number] Director: Red Graham PhD, Phone: [phone] Glomerular filtration rate ( GFR) estimation/1.73 sq m using serum, plasma, or whole bon 07-28-2024 GFR/1.73 sq M.predicted among non-blacks MDRD (S/P/Bld) [Vol rate/Area] 100 mL/min/{1.73_m2} >60 [facility] Comment on above: mL/min/1.73m2 CKD-EP I Creatinine Equation (2020) Hematocrit Auto (Bld) [Volum e fraction]on 07-28-2024 Hematocrit (Bld) [Volume fraction] 35.5 % Low 40-54 [facility] Hemoglobin measurementon Hemoglobin (Bld) [Mass/Vol] 11.2 g/dL Low 13.0-16.5 [facility] Immature granulocytes/100 WB C Auto (Bld)on 07-28-2024 Immature granulocytes/100 WBC (Bld) 0.800 % 0.0-0.9 [facility] Comment on above: IG% - Immature Granu locytes (promyelocytes, myelocytes and metamyelocytes) > 1% indicates that a LEFT SHIFT is Present. Laboratory - Chemistry and C hemistry - challengeon 07-28-2024 AST [Catalytic activity/Vol] 23 U/L <38 [facility] MCV (mean corpuscular volume ) determinationon 07-28-2024 MCV (RBC) [Entitic vol] 99.2 fL High 80-94 [facility] Magnesiumon 07-28-2024 Magnesium [Mass/Vol] 1.6 mg/dL Normal 1.5-2.2 [facility] Comment on above: Performed By: #### L 501.4700, L3380.1000, L501.5200, L500.4050, L501.5101, L100.0100, L501.2300 ####[facility] [address] [place], [place], [id number] Magnesium measurement (mass/ volume)on 07-28-2024 Magnesium (Unsp spec) [Mass/Vol] 1.6 mg/dL 1.5-2.2 [facility] Mean corpuscular hemoglobin (MCH) determinationon 07-28-2024 MCH (RBC) [Entitic mass] 31.3 pg 27.0-32.0 [facility] Mean corpuscular hemoglobin concentration (MCHC) determinationon 07-28-2024 MCHC (RBC) [Mass/Vol] 31.5 g/dL Low 32-36 [facility] Mean platelet volume determi nationon 07-28-2024 Platelet mean volume (Bld) [Entitic vol] 10.1 fL 6.2-12.0 [facility] Monocyte percentageon 2024 Monocytes/100 WBC (Bld) 9.2 % 0-10 [facility] Neutrophil percentageon 07-01 Neutrophils/100 WBC (Bld) 58.1 % 47-70 [facility] Nucleated red blood cell per centageon 07-28-2024 Nucleated RBC/100 WBC (Bld) [Ratio] 0 % 0-5 [facility] Phosphoruson 07-28-2024 Phosphate [Mass/Vol] 3.9 mg/dL Normal 2.7-4.5 [facility] Comment on above: Performed By: #### L 501.4700, L3380.1000, L501.5200, L500.4050, L501.5101, L100.0100, L501.2300 ####[facility] [address] [place], [place], [id number] Platelet counton 07-28-2024 Platelets (Bld) [#/Vol] 335 10*3/uL 150-450 [facility] Potassium measurement (mass/ volume)on 07-28-2024 Potassium (Unsp spec) [Mass/Vol] 4.5 mmol/L 3.3-5.1 [facility] RBC Auto (Bld) [#/Vol]on RBC (Bld) [#/Vol] 3.58 10*6/uL Low 4.6-6.2 [facility] [facility] Serum creatinine measurement (mass/volume)on 07-28-2024 Creatinine [Mass/Vol] 0.84 mg/dL 0.70-1.20 [facility] Serum globulin measurementon 07-28-2024 Globulin (S) [Mass/Vol] 2.7 g/dL 2.2-4.2 [facility] Serum glucose measurement (m ass/volume)on 07-28-2024 Glucose [Mass/Vol] 93 mg/dL 70-99 [facility] Serum or plasma alanine craig otransferase (ALT) measurementon 07-28-2024 ALT [Catalytic activity/Vol] 36 U/L <47 [facility] Serum or plasma albumin megha urement (mass/volume)on 07-28-2024 Albumin [Mass/Vol] 4.0 g/dL 3.4-4.8 [facility] Serum or plasma albumin/glob ulin mass ratioon 07-28-2024 Albumin/Globulin [Mass ratio] 1.5 {ratio} 0.9-2.4 [facility] Serum or plasma alkaline sal sphatase measurementon 07-28-2024 ALP [Catalytic activity/Vol] 212 U/L High 40-129 [facility] Serum or plasma calcium megha urement (mass/volume)on 07-28-2024 Calcium [Mass/Vol] 9.7 mg/dL 7.6-11.0 [facility] Serum or plasma urea nitroge n measurement (mass/volume)on 07-28-2024 Urea nitrogen [Mass/Vol] 22 mg/dL High 4-19 [facility] Sodium levelon 07-28-2024 Sodium [Moles/Vol] 140 mmol/L 133-145 [facility] Total proteinon 07-28-2024 Protein [Mass/Vol] 6.7 g/dL 5.9-8.4 [facility] White blood cell (WBC) count on 07-28-2024 WBC (Bld) [#/Vol] 3.6 10*3/uL Low 4.4-11.0 [facility] Bilirubin, Directon 07-27-19 25 Bilirubin.direct [Mass/Vol] 0.12 mg/dL Normal 0.00-0.30 [facility] Comment on above: Performed By: #### L 501.5101, L501.2300, L500.4050, L100.0100, L3380.1000, L501.4700, L501.5200 ####[facility] [address] [place], [place], [phone] Blood manual differential co mment interpretation (narrative result)on 07-26-2024 Manual differential comment Deandre (Bld) [Interp] SCANNED [facility] CBC W/Diff, Automatedon 07-01 SMEAR COMMENT SCANNED Normal [facility] Comment on above: Performed By: #### L 501.5101, L501.2300, L500.4050, L100.0100, L3380.1000, L501.4700, L501.5200 ####[facility] [address] [place], [place], [id number] Comprehensive Metabolic Prof iaon 07-26-2024 Albumin [Mass/Vol] 3.9 g/dL Normal 3.4-4.8 [facility] Comment on above: Performed By: #### L 501.5101, L501.2300, L500.4050, L100.0100, L3380.1000, L501.4700, L501.5200 ####[facility] [address] [place], [address] Albumin/Globulin [Mass ratio] 1.5 {ratio} Normal 0.9-2.4 [facility] Comment on above: Performed By: #### L 501.5101, L501.2300, L500.4050, L100.0100, L3380.1000, L501.4700, L501.5200 ####[facility] [address] [place], [place], [phone] ALK PHOS 212 U/L High 40-129 [facility] Comment on above: Performed By: #### L 501.5101, L501.2300, L500.4050, L100.0100, L3380.1000, L501.4700, L501.5200 ####[facility] [address] [place], [place], [phone] ALT [Catalytic activity/Vol] 47 U/L Normal <=46 [facility] Comment on above: Performed By: #### L 501.5101, L501.2300, L500.4050, L100.0100, L3380.1000, L501.4700, L501.5200 ####[facility] [address] [place], [place], [phone] AST [Catalytic activity/Vol] 39 U/L High <=37 [facility] Comment on above: Performed By: #### L 501.5101, L501.2300, L500.4050, L100.0100, L3380.1000, L501.4700, L501.5200 ####[facility] [address] [place], [address] Bilirubin [Mass/Vol] 0.20 mg/dL Normal 0.00-1.30 [facility] Comment on above: Performed By: #### L 501.5101, L501.2300, L500.4050, L100.0100, L3380.1000, L501.4700, L501.5200 ####[facility] [address] [place], [address] BUN/CRE 24.3 RATIO High 10-20 [facility] Comment on above: Performed By: #### L 501.5101, L501.2300, L500.4050, L100.0100, L3380.1000, L501.4700, L501.5200 ####[facility] [address] [place], [address] Calcium [Mass/Vol] 9.3 mg/dL Normal 7.6-11.0 [facility] Comment on above: Performed By: #### L 501.5101, L501.2300, L500.4050, L100.0100, L3380.1000, L501.4700, L501.5200 ####[facility] [address] [place], [address] Chloride [Moles/Vol] 103 mmol/L Normal 98-108 [facility] Comment on above: Performed By: #### L 501.5101, L501.2300, L500.4050, L100.0100, L3380.1000, L501.4700, L501.5200 ####[facility] [address] [place], [address] CO2 [Moles/Vol] 24.4 mmol/L Normal 21.0-32.0 [facility] Comment on above: Performed By: #### L 501.5101, L501.2300, L500.4050, L100.0100, L3380.1000, L501.4700, L501.5200 ####[facility] [address] [place], [place], [phone] Creatinine [Mass/Vol] 0.94 mg/dL Normal 0.70-1.20 [facility] Comment on above: Performed By: #### L 501.5101, L501.2300, L500.4050, L100.0100, L3380.1000, L501.4700, L501.5200 ####[facility] [address] [place], [address] GAP 11 Normal 5-15 [facility] Comment on above: Performed By: #### L 501.5101, L501.2300, L500.4050, L100.0100, L3380.1000, L501.4700, L501.5200 ####[facility] [address] [place], [place], [phone] GFR/1.73 sq M.predicted among non-blacks MDRD (S/P/Bld) [Vol rate/Area] 93 mL/min/{1.73_m2} Normal >60 [facility] Comment on above: Result Comment: mL/m in/1.73m2 CKD-EPI Creatinine Equation (2020) Performed By: #### L 501.5101, L501.2300, L500.4050, L100.0100, L3380.1000, L501.4700, L501.5200 ####[facility] [address] [place], [address] Globulin (S) [Mass/Vol] 2.7 g/dL Normal 2.2-4.2 [facility] Comment on above: Performed By: #### L 501.5101, L501.2300, L500.4050, L100.0100, L3380.1000, L501.4700, L501.5200 ####[facility] [address] [place], [address] Glucose [Mass/Vol] 88 mg/dL Normal 70-99 [facility] Comment on above: Performed By: #### L 501.5101, L501.2300, L500.4050, L100.0100, L3380.1000, L501.4700, L501.5200 ####[facility] [address] [place], [address] Potassium [Moles/Vol] 4.2 mmol/L Normal 3.3-5.1 [facility] Comment on above: Performed By: #### L 501.5101, L501.2300, L500.4050, L100.0100, L3380.1000, L501.4700, L501.5200 ####[facility] [address] [place], [address] Sodium [Moles/Vol] 139 mmol/L Normal 133-145 [facility] Comment on above: Performed By: #### L 501.5101, L501.2300, L500.4050, L100.0100, L3380.1000, L501.4700, L501.5200 ####[facility] [address] [place], [address] T PROT 6.6 g/dL Normal 5.9-8.4 [facility] Comment on above: Performed By: #### L 501.5101, L501.2300, L500.4050, L100.0100, L3380.1000, L501.4700, L501.5200 ####[facility] [address] [place], [address] Urea nitrogen [Mass/Vol] 23 mg/dL High 4-19 [facility] Comment on above: Performed By: #### L 501.5101, L501.2300, L500.4050, L100.0100, L3380.1000, L501.4700, L501.5200 ####[facility] [address] [place], [address] Gamma glutamyl transferase ( GGT) measurementon 07-26-2024 Amylase [Catalytic activity/Vol] 153 U/L High 0-65 [facility] Comment on above: Performed at: [facility] [address] [id number] Director: Sergio Machado MD, Phone: [phone] at: [address] [id number] Director: Red Graham PhD, Phone: [phone] Magnesiumon 07-26-2024 Magnesium [Mass/Vol] 1.8 mg/dL Normal 1.5-2.2 [facility] Comment on above: Performed By: #### L 501.5101, L501.2300, L500.4050, L100.0100, L3380.1000, L501.4700, L501.5200 ####[facility] [address] [place], [address] Phosphoruson 07-26-2024 Phosphate [Mass/Vol] 3.0 mg/dL Normal 2.7-4.5 [facility] Comment on above: Performed By: #### L 501.5101, L501.2300, L500.4050, L100.0100, L3380.1000, L501.4700, L501.5200 ####[facility] [address] [place], [address] L501.5101on 07-25-2024 GGTP 52 IU/L Normal 0-65 [facility] Comment on above: Order Comment: Test( s) [id number] (FK506), Bloodwas developed and its performance characteristicsdetermined by [facility]. It has not been cleared or approvedby the Food and Drug Administration. Result Comment: Perf ormed at: [address] [id number] Director: Sergio Machaod MD, Phone: [phone] at: [facility] [id number] [place], [place] [id number] Director: Red Graham PhD, Phone: [phone] Performed By: #### L 100.0100, L501.2300, L501.5101, L3380.1000, L501.5200, L500.4050, L501.4700 ####[facility] [address] [place], [address] Tacrolimus (Prograf)on 07-25 Tacrolimus (Bld) [Mass/Vol] 10.3 ng/mL Normal 5.0-20.0 [facility] Comment on above: Order Comment: Test( s) [id number] (FK506), Bloodwas developed and its performance characteristicsdetermined by [facility]. It has not been cleared or approvedby the Food and Drug Administration. Result Comment: Targ et steady state trough concentration forTacrolimus varies based on type of organ transplantimmunosuppressive protocol and other patient specificfactors. Tacrolimus trough concentrations should beinterpreted in conjunction with clinical assessmentsof rejection and tolerability. Values obtained withdifferent assay methods cannot be used interchangeablydue to differences in assay methods and cross-reactivtywith metabolites, nor should correction factors beapplied. Therefore, consistent use of one assay forindividual patients is recommended.Detection Limit = 0.5 ng/mLPerformed by LC-MS/MS technology. Performed By: #### L 100.0100, L501.2300, L501.5101, L3380.1000, L501.5200, L500.4050, L501.4700 ####[facility] [address] [place], [address] Bilirubin, Directon 07-22-19 Bilirubin.direct [Mass/Vol] 0.16 mg/dL Normal 0.00-0.30 [facility] Comment on above: Performed By: #### L 100.0100, L501.2300, L501.5101, L3380.1000, L501.5200, L500.4050, L501.4700 ####[facility] [address] [place], [address] CBC W/Diff, Automatedon 05- PATH REV Reviewed Normal [facility] Comment on above: Result Comment: SEE REPORT IN PATIENT'S EMR AMENDED REPORT 07/21/24 1543 PATH REV previously reported as: June Performed By: #### L 501.2300, L100.0100, L500.4050, L3380.1000, L501.5200, L501.4700, L501.5101 ####[facility] [address] [place], [address] Absolute Lymph 0.95 X10 3/uL Normal 0.83-4.51 [facility] Comment on above: Performed By: #### L 100.0100, L501.2300, L501.5101, L3380.1000, L501.5200, L500.4050, L501.4700 ####[facility] [address] [place], [address] Absolute Neut 2.9 X10 3/uL Normal 2.0-7.7 [facility] Comment on above: Performed By: #### L 100.0100, L501.2300, L501.5101, L3380.1000, L501.5200, L500.4050, L501.4700 ####[facility] [address] [place], [address] Basophils/100 WBC (Bld) 1.4 % High 0-1 [facility] Comment on above: Performed By: #### L 100.0100, L501.2300, L501.5101, L3380.1000, L501.5200, L500.4050, L501.4700 ####[facility] [address] [place], [address] Eosinophils/100 WBC (Bld) 0.2 % Normal 0-5 [facility] Comment on above: Performed By: #### L 100.0100, L501.2300, L501.5101, L3380.1000, L501.5200, L500.4050, L501.4700 ####[facility] [address] [place], [address] Erythrocyte distribution width (RBC) [Ratio] 17.4 % High 11.6-14.6 [facility] Comment on above: Performed By: #### L 100.0100, L501.2300, L501.5101, L3380.1000, L501.5200, L500.4050, L501.4700 ####[facility] [address] [place], [address] Hematocrit (Bld) [Volume fraction] 35.6 % Low 40-54 [facility] Comment on above: Performed By: #### L 100.0100, L501.2300, L501.5101, L3380.1000, L501.5200, L500.4050, L501.4700 ####[facility] [address] [place], [address] Hemoglobin (Bld) [Mass/Vol] 11.3 g/dL Low 13.0-16.5 [facility] Comment on above: Performed By: #### L 100.0100, L501.2300, L501.5101, L3380.1000, L501.5200, L500.4050, L501.4700 ####[facility] [address] [place], [address] IG% 0.700 Normal 0.0-0.9 [facility] Comment on above: Result Comment: IG% - Immature Granulocytes (promyelocytes, myelocytes andmetamyelocytes) > 1% indicates that a LEFT SHIFT is Present. Performed By: #### L 100.0100, L501.2300, L501.5101, L3380.1000, L501.5200, L500.4050, L501.4700 ####[facility] [address] [place], [address] Lymphocytes/100 WBC (Bld) 21.7 % Normal 19-41 [facility] Comment on above: Performed By: #### L 100.0100, L501.2300, L501.5101, L3380.1000, L501.5200, L500.4050, L501.4700 ####[facility] [address] [place], [address] MCH (RBC) [Entitic mass] 31.4 pg Normal 27.0-32.0 [facility] Comment on above: Performed By: #### L 100.0100, L501.2300, L501.5101, L3380.1000, L501.5200, L500.4050, L501.4700 ####[facility] [address] [place], [address] MCHC (RBC) [Mass/Vol] 31.7 g/dL Low 32-36 [facility] Comment on above: Performed By: #### L 100.0100, L501.2300, L501.5101, L3380.1000, L501.5200, L500.4050, L501.4700 ####[facility] [address] [place], [address] MCV (RBC) [Entitic vol] 98.9 fL High 80-94 [facility] Comment on above: Performed By: #### L 100.0100, L501.2300, L501.5101, L3380.1000, L501.5200, L500.4050, L501.4700 ####[facility] [address] [place], [address] Monocytes/100 WBC (Bld) 11.0 % High 0-10 [facility] Comment on above: Performed By: #### L 100.0100, L501.2300, L501.5101, L3380.1000, L501.5200, L500.4050, L501.4700 ####[facility] [address] [place], [address] Neutrophils/100 WBC (Bld) 65.0 % Normal 47-70 [facility] Comment on above: Performed By: #### L 100.0100, L501.2300, L501.5101, L3380.1000, L501.5200, L500.4050, L501.4700 ####[facility] [address] [place], [address] Nucleated RBC (Bld) [#/Vol] 0 10*3/uL Normal 0-5 [facility] Comment on above: Performed By: #### L 100.0100, L501.2300, L501.5101, L3380.1000, L501.5200, L500.4050, L501.4700 ####[facility] [address] [place], [address] Platelet mean volume (Bld) [Entitic vol] 10.7 fL Normal 6.2-12.0 [facility] Comment on above: Performed By: #### L 100.0100, L501.2300, L501.5101, L3380.1000, L501.5200, L500.4050, L501.4700 ####[facility] [address] [place], [address] Platelets (Bld) [#/Vol] 349 10*3/uL Normal 150-450 [facility] Comment on above: Performed By: #### L 100.0100, L501.2300, L501.5101, L3380.1000, L501.5200, L500.4050, L501.4700 ####[facility] [address] [place], [address] RBC (Bld) [#/Vol] 3.60 10*6/uL Low 4.6-6.2 [facility] Comment on above: Performed By: #### L 100.0100, L501.2300, L501.5101, L3380.1000, L501.5200, L500.4050, L501.4700 ####[facility] [address] [place], [address] RDW SD 63.8 fl High 35.1-43.9 [facility] Comment on above: Performed By: #### L 100.0100, L501.2300, L501.5101, L3380.1000, L501.5200, L500.4050, L501.4700 ####[facility] [address] [place], [place], [address] WBC (Bld) [#/Vol] 4.4 10*3/uL Normal 4.4-11.0 [facility] Comment on above: Performed By: #### L 100.0100, L501.2300, L501.5101, L3380.1000, L501.5200, L500.4050, L501.4700 ####[facility] [address] [place], [address] Comprehensive Metabolic Prof [facility] 07-21-2024 Albumin [Mass/Vol] 4.0 g/dL Normal 3.4-4.8 [facility] Comment on above: Performed By: #### L 100.0100, L501.2300, L501.5101, L3380.1000, L501.5200, L500.4050, L501.4700 ####[facility] [address] [place], [address] Albumin/Globulin [Mass ratio] 1.4 {ratio} Normal 0.9-2.4 [facility] Comment on above: Performed By: #### L 100.0100, L501.2300, L501.5101, L3380.1000, L501.5200, L500.4050, L501.4700 ####[facility] [address] [place], [address] ALK PHOS 151 U/L High 40-129 [facility] Comment on above: Performed By: #### L 100.0100, L501.2300, L501.5101, L3380.1000, L501.5200, L500.4050, L501.4700 ####[facility] [address] [place], [address] ALT [Catalytic activity/Vol] 26 U/L Normal <=46 [facility] Comment on above: Performed By: #### L 100.0100, L501.2300, L501.5101, L3380.1000, L501.5200, L500.4050, L501.4700 ####[facility] [address] [place], [address] AST [Catalytic activity/Vol] 28 U/L Normal <=37 [facility] Comment on above: Performed By: #### L 100.0100, L501.2300, L501.5101, L3380.1000, L501.5200, L500.4050, L501.4700 ####[facility] [address] [place], [address] Bilirubin [Mass/Vol] 0.30 mg/dL Normal 0.00-1.30 [facility] Comment on above: Performed By: #### L 100.0100, L501.2300, L501.5101, L3380.1000, L501.5200, L500.4050, L501.4700 ####[facility] [address] [place], [address] BUN/CRE 29.9 RATIO High 10-20 [facility] Comment on above: Performed By: #### L 100.0100, L501.2300, L501.5101, L3380.1000, L501.5200, L500.4050, L501.4700 ####[facility] [address] [place], [address] Calcium [Mass/Vol] 9.5 mg/dL Normal 7.6-11.0 [facility] Comment on above: Performed By: #### L 100.0100, L501.2300, L501.5101, L3380.1000, L501.5200, L500.4050, L501.4700 ####[facility] [address] [place], [address] Chloride [Moles/Vol] 104 mmol/L Normal 98-108 [facility] Comment on above: Performed By: #### L 100.0100, L501.2300, L501.5101, L3380.1000, L501.5200, L500.4050, L501.4700 ####[facility] [address] [place], [address] CO2 [Moles/Vol] 26.1 mmol/L Normal 21.0-32.0 [facility] Comment on above: Performed By: #### L 100.0100, L501.2300, L501.5101, L3380.1000, L501.5200, L500.4050, L501.4700 ####[facility] [address] [place], [address] Creatinine [Mass/Vol] 0.95 mg/dL Normal 0.70-1.20 [facility] Comment on above: Performed By: #### L 100.0100, L501.2300, L501.5101, L3380.1000, L501.5200, L500.4050, L501.4700 ####[facility] [address] [place], [address] GAP 11 Normal 5-15 [facility] Comment on above: Performed By: #### L 100.0100, L501.2300, L501.5101, L3380.1000, L501.5200, L500.4050, L501.4700 ####[facility] [address] [place], [address] GFR/1.73 sq M.predicted among non-blacks MDRD (S/P/Bld) [Vol rate/Area] 92 mL/min/{1.73_m2} Normal >60 [facility] Comment on above: Result Comment: mL/m in/1.73m2 CKD-EPI Creatinine Equation (2020) Performed By: #### L 100.0100, L501.2300, L501.5101, L3380.1000, L501.5200, L500.4050, L501.4700 ####[facility] [address] [place], [address] Globulin (S) [Mass/Vol] 2.8 g/dL Normal 2.2-4.2 [facility] Comment on above: Performed By: #### L 100.0100, L501.2300, L501.5101, L3380.1000, L501.5200, L500.4050, L501.4700 ####[facility] [address] [place], [address] Glucose [Mass/Vol] 102 mg/dL High 70-99 [facility] Comment on above: Performed By: #### L 100.0100, L501.2300, L501.5101, L3380.1000, L501.5200, L500.4050, L501.4700 ####[facility] [address] [place], [address] Potassium [Moles/Vol] 4.6 mmol/L Normal 3.3-5.1 [facility] Comment on above: Performed By: #### L 100.0100, L501.2300, L501.5101, L3380.1000, L501.5200, L500.4050, L501.4700 ####[facility] [address] [place], [address] Sodium [Moles/Vol] 141 mmol/L Normal 133-145 [facility] Comment on above: Performed By: #### L 100.0100, L501.2300, L501.5101, L3380.1000, L501.5200, L500.4050, L501.4700 ####[facility] [address] [place], [address] T PROT 6.9 g/dL Normal 5.9-8.4 [facility] Comment on above: Performed By: #### L 100.0100, L501.2300, L501.5101, L3380.1000, L501.5200, L500.4050, L501.4700 ####[facility] [address] [place], [address] Urea nitrogen [Mass/Vol] 28 mg/dL High 4-19 [facility] Comment on above: Performed By: #### L 100.0100, L501.2300, L501.5101, L3380.1000, L501.5200, L500.4050, L501.4700 ####[facility] [address] [place], [address] Magnesiumon 07-21-2024 Magnesium [Mass/Vol] 1.8 mg/dL Normal 1.5-2.2 [facility] Comment on above: Performed By: #### L 100.0100, L501.2300, L501.5101, L3380.1000, L501.5200, L500.4050, L501.4700 ####[facility] [address] [place], [address] Phosphoruson 07-21-2024 Phosphate [Mass/Vol] 4.4 mg/dL Normal 2.7-4.5 [facility] Comment on above: Performed By: #### L 100.0100, L501.2300, L501.5101, L3380.1000, L501.5200, L500.4050, L501.4700 ####[facility] [address] [place], [place], [id number] L501.5101on 07-20-2024 GGTP 27 IU/L Normal 0-65 [facility] Comment on above: Order Comment: Test( s) [id number] ([id number]), Bloodwas developed and its performance characteristicsdetermined by [facility]. It has not been cleared or approvedby the Food and Drug Administration. Result Comment: Perf ormed at: [facility] [address] [id number] Director: Sergio Machado MD, Phone: [phone] at: [facility] [address] [id number] Director: Red Graham PhD, Phone: [phone] Performed By: #### L 501.5200, L500.4050, L501.2300, L501.5101, L3380.1000, L100.0100, L501.4700 ####[facility] [address] [place], [place], [id number] Tacrolimus (Prograf)on 07-20 Tacrolimus (Bld) [Mass/Vol] 9.3 ng/mL Normal 5.0-20.0 [facility] Comment on above: Order Comment: Test( s) 581900-Euokqicsby (FK506), Bloodwas developed and its performance characteristicsdetermined by [facility]. It has not been cleared or approvedby the Food and Drug Administration. Result Comment: Samia mondragon steady state trough concentration forTacrolimus varies based on type of organ transplantimmunosuppressive protocol and other patient specificfactors. Tacrolimus trough concentrations should beinterpreted in conjunction with clinical assessmentsof rejection and tolerability. Values obtained withdifferent assay methods cannot be used interchangeablydue to differences in assay methods and cross-reactivtywith metabolites, nor should correction factors beapplied. Therefore, consistent use of one assay forindividual patients is recommended.Detection Limit = 0.5 ng/mLPerformed by LC-MS/MS technology. Performed By: #### L 501.5200, L500.4050, L501.2300, L501.5101, L3380.1000, L100.0100, L501.4700 ####[facility] [address] [place], [address] Bilirubin, Directon 07-19-19 25 Bilirubin.direct [Mass/Vol] 0.17 mg/dL Normal 0.00-0.30 [facility] Comment on above: Performed By: #### L 501.5200, L500.4050, L501.2300, L501.5101, L3380.1000, L100.0100, L501.4700 ####[facility] [address] [place], [address] CBC W/Diff, Automatedon 05 Absolute Lymph 1.03 X10 3/uL Normal 0.83-4.51 [facility] Comment on above: Performed By: #### L 501.5200, L500.4050, L501.2300, L501.5101, L3380.1000, L100.0100, L501.4700 ####[facility] [address] [place], [address] Absolute Neut 3.1 X10 3/uL Normal 2.0-7.7 [facility] Comment on above: Performed By: #### L 501.5200, L500.4050, L501.2300, L501.5101, L3380.1000, L100.0100, L501.4700 ####[facility] [address] [place], [address] Basophils/100 WBC (Bld) 1.3 % High 0-1 [facility] Comment on above: Performed By: #### L 501.5200, L500.4050, L501.2300, L501.5101, L3380.1000, L100.0100, L501.4700 ####[facility] [address] [place], [address] Eosinophils/100 WBC (Bld) 0.2 % Normal 0-5 [facility] Comment on above: Performed By: #### L 501.5200, L500.4050, L501.2300, L501.5101, L3380.1000, L100.0100, L501.4700 ####[facility] [address] [place], [address] Erythrocyte distribution width (RBC) [Ratio] 17.4 % High 11.6-14.6 [facility] Comment on above: Performed By: #### L 501.5200, L500.4050, L501.2300, L501.5101, L3380.1000, L100.0100, L501.4700 ####[facility] [address] [place], [address] Hematocrit (Bld) [Volume fraction] 37.0 % Low 40-54 [facility] Comment on above: Performed By: #### L 501.5200, L500.4050, L501.2300, L501.5101, L3380.1000, L100.0100, L501.4700 ####[facility] [address] [place], [address] Hemoglobin (Bld) [Mass/Vol] 12.0 g/dL Low 13.0-16.5 [facility] Comment on above: Performed By: #### L 501.5200, L500.4050, L501.2300, L501.5101, L3380.1000, L100.0100, L501.4700 ####[facility] [address] [place], [address] IG% 1.100 High 0.0-0.9 [facility] Comment on above: Result Comment: IG% - Immature Granulocytes (promyelocytes, myelocytes andmetamyelocytes) > 1% indicates that a LEFT SHIFT is Present. Performed By: #### L 501.5200, L500.4050, L501.2300, L501.5101, L3380.1000, L100.0100, L501.4700 ####[facility] [address] [place], [address] Lymphocytes/100 WBC (Bld) 22.2 % Normal 19-41 [facility] Comment on above: Performed By: #### L 501.5200, L500.4050, L501.2300, L501.5101, L3380.1000, L100.0100, L501.4700 ####[facility] [address] [place], [address] MCH (RBC) [Entitic mass] 32.0 pg Normal 27.0-32.0 [facility] Comment on above: Performed By: #### L 501.5200, L500.4050, L501.2300, L501.5101, L3380.1000, L100.0100, L501.4700 ####[facility] [address] [place], [address] MCHC (RBC) [Mass/Vol] 32.4 g/dL Normal 32-36 [facility] Comment on above: Performed By: #### L 501.5200, L500.4050, L501.2300, L501.5101, L3380.1000, L100.0100, L501.4700 ####[facility] [address] [place], [address] MCV (RBC) [Entitic vol] 98.7 fL High 80-94 [facility] Comment on above: Performed By: #### L 501.5200, L500.4050, L501.2300, L501.5101, L3380.1000, L100.0100, L501.4700 ####[facility] [address] [place], [address] Monocytes/100 WBC (Bld) 8.0 % Normal 0-10 [facility] Comment on above: Performed By: #### L 501.5200, L500.4050, L501.2300, L501.5101, L3380.1000, L100.0100, L501.4700 ####[facility] [address] [place], [address] Neutrophils/100 WBC (Bld) 67.2 % Normal 47-70 [facility] Comment on above: Performed By: #### L 501.5200, L500.4050, L501.2300, L501.5101, L3380.1000, L100.0100, L501.4700 ####[facility] [address] [place], [address] Nucleated RBC (Bld) [#/Vol] 0 10*3/uL Normal 0-5 [facility] Comment on above: Performed By: #### L 501.5200, L500.4050, L501.2300, L501.5101, L3380.1000, L100.0100, L501.4700 ####[facility] [address] [place], [address] Platelet mean volume (Bld) [Entitic vol] 10.4 fL Normal 6.2-12.0 [facility] Comment on above: Performed By: #### L 501.5200, L500.4050, L501.2300, L501.5101, L3380.1000, L100.0100, L501.4700 ####[facility] [address] [place], [address] Platelets (Bld) [#/Vol] 402 10*3/uL Normal 150-450 [facility] Comment on above: Performed By: #### L 501.5200, L500.4050, L501.2300, L501.5101, L3380.1000, L100.0100, L501.4700 ####[facility] [address] [place], [address] RBC (Bld) [#/Vol] 3.75 10*6/uL Low 4.6-6.2 [facility] Comment on above: Performed By: #### L 501.5200, L500.4050, L501.2300, L501.5101, L3380.1000, L100.0100, L501.4700 ####[facility] [address] [place], [address] RDW SD 62.9 fl High 35.1-43.9 [facility] Comment on above: Performed By: #### L 501.5200, L500.4050, L501.2300, L501.5101, L3380.1000, L100.0100, L501.4700 ####[facility] [address] [place], [address] WBC (Bld) [#/Vol] 4.6 10*3/uL Normal 4.4-11.0 [facility] Comment on above: Performed By: #### L 501.5200, L500.4050, L501.2300, L501.5101, L3380.1000, L100.0100, L501.4700 ####[facility] [address] [place], [address] Comprehensive Metabolic Prof [facility] 07-18-2024 Albumin [Mass/Vol] 4.2 g/dL Normal 3.4-4.8 [facility] Comment on above: Performed By: #### L 501.5200, L500.4050, L501.2300, L501.5101, L3380.1000, L100.0100, L501.4700 ####[facility] [address] [place], [address] Albumin/Globulin [Mass ratio] 1.4 {ratio} Normal 0.9-2.4 [facility] Comment on above: Performed By: #### L 501.5200, L500.4050, L501.2300, L501.5101, L3380.1000, L100.0100, L501.4700 ####[facility] [address] [place], [address] ALK PHOS 136 U/L High 40-129 [facility] Comment on above: Performed By: #### L 501.5200, L500.4050, L501.2300, L501.5101, L3380.1000, L100.0100, L501.4700 ####[facility] [address] [place], [address] ALT [Catalytic activity/Vol] 22 U/L Normal <=46 [facility] Comment on above: Performed By: #### L 501.5200, L500.4050, L501.2300, L501.5101, L3380.1000, L100.0100, L501.4700 ####[facility] [address] [place], [address] AST [Catalytic activity/Vol] 23 U/L Normal <=37 [facility] Comment on above: Performed By: #### L 501.5200, L500.4050, L501.2300, L501.5101, L3380.1000, L100.0100, L501.4700 ####[facility] [address] [place], [address] Bilirubin [Mass/Vol] 0.28 mg/dL Normal 0.00-1.30 [facility] Comment on above: Performed By: #### L 501.5200, L500.4050, L501.2300, L501.5101, L3380.1000, L100.0100, L501.4700 ####[facility] [address] [place], [address] BUN/CRE 29.6 RATIO High 10-20 [facility] Comment on above: Performed By: #### L 501.5200, L500.4050, L501.2300, L501.5101, L3380.1000, L100.0100, L501.4700 ####[facility] [address] [place], [address] Calcium [Mass/Vol] 9.3 mg/dL Normal 7.6-11.0 [facility] Comment on above: Performed By: #### L 501.5200, L500.4050, L501.2300, L501.5101, L3380.1000, L100.0100, L501.4700 ####[facility] [address] [place], [address] Chloride [Moles/Vol] 104 mmol/L Normal 98-108 [facility] Comment on above: Performed By: #### L 501.5200, L500.4050, L501.2300, L501.5101, L3380.1000, L100.0100, L501.4700 ####[facility] [address] [place], [address] CO2 [Moles/Vol] 26.7 mmol/L Normal 21.0-32.0 [facility] Comment on above: Performed By: #### L 501.5200, L500.4050, L501.2300, L501.5101, L3380.1000, L100.0100, L501.4700 ####[facility] [address] [place], [address] Creatinine [Mass/Vol] 0.92 mg/dL Normal 0.70-1.20 [facility] Comment on above: Performed By: #### L 501.5200, L500.4050, L501.2300, L501.5101, L3380.1000, L100.0100, L501.4700 ####[facility] [address] [place], [address] GAP 10 Normal 5-15 [facility] Comment on above: Performed By: #### L 501.5200, L500.4050, L501.2300, L501.5101, L3380.1000, L100.0100, L501.4700 ####[facility] [address] [place], [address] GFR/1.73 sq M.predicted among non-blacks MDRD (S/P/Bld) [Vol rate/Area] 95 mL/min/{1.73_m2} Normal >60 [facility] Comment on above: Result Comment: mL/m in/1.73m2 CKD-EPI Creatinine Equation (2020) Performed By: #### L 501.5200, L500.4050, L501.2300, L501.5101, L3380.1000, L100.0100, L501.4700 ####[facility] [address] [place], [address] Globulin (S) [Mass/Vol] 2.9 g/dL Normal 2.2-4.2 [facility] Comment on above: Performed By: #### L 501.5200, L500.4050, L501.2300, L501.5101, L3380.1000, L100.0100, L501.4700 ####[facility] [address] [place], [address] Glucose [Mass/Vol] 88 mg/dL Normal 70-99 [facility] Comment on above: Performed By: #### L 501.5200, L500.4050, L501.2300, L501.5101, L3380.1000, L100.0100, L501.4700 ####[facility] [address] [place], [address] Potassium [Moles/Vol] 4.5 mmol/L Normal 3.3-5.1 [facility] Comment on above: Performed By: #### L 501.5200, L500.4050, L501.2300, L501.5101, L3380.1000, L100.0100, L501.4700 ####[facility] [address] [place], [address] Sodium [Moles/Vol] 141 mmol/L Normal 133-145 [facility] Comment on above: Performed By: #### L 501.5200, L500.4050, L501.2300, L501.5101, L3380.1000, L100.0100, L501.4700 ####[facility] [address] [place], [address] T PROT 7.1 g/dL Normal 5.9-8.4 [facility] Comment on above: Performed By: #### L 501.5200, L500.4050, L501.2300, L501.5101, L3380.1000, L100.0100, L501.4700 ####[facility] [address] [place], [address] Urea nitrogen [Mass/Vol] 27 mg/dL High 4-19 [facility] Comment on above: Performed By: #### L 501.5200, L500.4050, L501.2300, L501.5101, L3380.1000, L100.0100, L501.4700 ####[facility] [address] [place], [address] L501.5101on 07-18-2024 GGTP 24 IU/L Normal 0-65 [facility] Comment on above: Order Comment: Test( s) 823783-Fvuckcocty (FK506), Bloodwas developed and its performance characteristicsdetermined by [facility]. It has not been cleared or approvedby the Food and Drug Administration. Result Comment: Perf ormed at: - [facility] [address] [place], [place] [id number] Director: Sergio Machado MD, Phone: [phone] at: [address] [id number] Director: Red Graham PhD, Phone: [phone] Performed By: #### L 501.4700, L100.0100, L501.5101, L3380.1000, L500.4050, L501.2300, L501.5200 ####[facility] [address] [place], [place], [address] Magnesiumon 07-18-2024 Magnesium [Mass/Vol] 1.8 mg/dL Normal 1.5-2.2 [facility] Comment on above: Performed By: #### L 501.5200, L500.4050, L501.2300, L501.5101, L3380.1000, L100.0100, L501.4700 ####[facility] [address] [place], [place], [address] Phosphoruson 07-18-2024 Phosphate [Mass/Vol] 4.3 mg/dL Normal 2.7-4.5 [facility] Comment on above: Performed By: #### L 501.5200, L500.4050, L501.2300, L501.5101, L3380.1000, L100.0100, L501.4700 ####[facility] [address] [place], [place], [address] Tacrolimus (Prograf)on 07-18 Tacrolimus (Bld) [Mass/Vol] 8.4 ng/mL Normal 5.0-20.0 [facility] Comment on above: Order Comment: Test( s) 684271-Jheydaoibn (FK506), Bloodwas developed and its performance characteristicsdetermined by [facility]. It has not been cleared or approvedby the Food and Drug Administration. Result Comment: Targ et steady state trough concentration forTacrolimus varies based on type of organ transplantimmunosuppressive protocol and other patient specificfactors. Tacrolimus trough concentrations should beinterpreted in conjunction with clinical assessmentsof rejection and tolerability. Values obtained withdifferent assay methods cannot be used interchangeablydue to differences in assay methods and cross-reactivtywith metabolites, nor should correction factors beapplied. Therefore, consistent use of one assay forindividual patients is recommended.Detection Limit = 0.5 ng/mLPerformed by LC-MS/MS technology. Performed By: #### L 501.4700, L100.0100, L501.5101, L3380.1000, L500.4050, L501.2300, L501.5200 ####[facility] [address] [place], [address] L3410.9992on 07-15-2024 [facility]. COMMENT Normal . [facility] Comment on above: Order Comment: 50181 4Phosphatidylethanol LAV WB RT Result Comment: Test Ordered: 701314 Phosphatidylethanol (PEth)PHOSPHATIDYLETHANOL Negative MX Reference Range: .Phosphatidylethanol (PEth) Negative ng/mL MX Reference Range: .Analyzed compound: PEth 16:0/18:1. 5-zthmjjnfj-3-nrvuqr-wx-nmhabli-3-phosphoethanol.Analysis performed by Liquid Chromatography withTandem Mass Spectrometry (LC/MS/MS).Detection limit: 20 ng/mLPEth levels in excess of 20 ng/mL are considered evidenceof moderate to heavy ethanol consumption. However,the [facility] for Substance Abuse [facility] (CSAT) advisescaution in interpretation and use of biomarkers aloneto assess alcohol use. Results should be interpretedin the context of all available clinical and behavioralinformation.Reference: Substance Abuse and Mental Health Services Administration (2012). The Role of Biomarkers in the Treatment of Alcohol Use Disorders, 2012 Revision. Advisory, Volume 11, Issue 2.This test was developed and its performance characteristicsdetermined by [facility]. It has not been cleared or approvedby the Food and Drug Administration.Performed at: [facility] [address] [id number] Director: Clau Abdalla [facility], Phone: [phone] at: [facility] [address] [id number] Director: Red Graham PhD, Phone: [phone] Performed By: #### L 3380.1000, L501.5101, L501.4700, L501.5200, L100.0100, L501.2300, L3410.9992, L500.4050 ####[facility] [address] [place], [place], [address] Bilirubin, Directon 07-15-19 Bilirubin.direct [Mass/Vol] 0.17 mg/dL Normal 0.00-0.30 [facility] Comment on above: Performed By: #### L 501.4700, L100.0100, L501.5101, L3380.1000, L500.4050, L501.2300, L501.5200 ####[facility] [address] [place], [place], [address] CBC W/Diff, Automatedon 06-30 PLT EST A Normal ADEQ [facility] Comment on above: Performed By: #### L 501.4700, L100.0100, L501.5101, L3380.1000, L500.4050, L501.2300, L501.5200 ####[facility] [address] [place], [address] Comprehensive Metabolic Prof ilon 07-14-2024 Albumin [Mass/Vol] 3.9 g/dL Normal 3.4-4.8 [facility] Comment on above: Performed By: #### L 501.4700, L100.0100, L501.5101, L3380.1000, L500.4050, L501.2300, L501.5200 ####[facility] [address] [place], [place], [address] Albumin/Globulin [Mass ratio] 1.3 {ratio} Normal 0.9-2.4 [facility] Comment on above: Performed By: #### L 501.4700, L100.0100, L501.5101, L3380.1000, L500.4050, L501.2300, L501.5200 ####[facility] [address] [place], [address] ALK PHOS 137 U/L High 40-129 [facility] Comment on above: Performed By: #### L 501.4700, L100.0100, L501.5101, L3380.1000, L500.4050, L501.2300, L501.5200 ####[facility] [address] [place], [address] ALT [Catalytic activity/Vol] 17 U/L Normal <=46 [facility] Comment on above: Performed By: #### L 501.4700, L100.0100, L501.5101, L3380.1000, L500.4050, L501.2300, L501.5200 ####[facility] [address] [place], [address] AST [Catalytic activity/Vol] 22 U/L Normal <=37 [facility] Comment on above: Performed By: #### L 501.4700, L100.0100, L501.5101, L3380.1000, L500.4050, L501.2300, L501.5200 ####[facility] [address] [place], [address] Bilirubin [Mass/Vol] 0.27 mg/dL Normal 0.00-1.30 [facility] Comment on above: Performed By: #### L 501.4700, L100.0100, L501.5101, L3380.1000, L500.4050, L501.2300, L501.5200 ####[facility] [address] [place], [address] BUN/CRE 29.9 RATIO High 10-20 [facility] Comment on above: Performed By: #### L 501.4700, L100.0100, L501.5101, L3380.1000, L500.4050, L501.2300, L501.5200 ####[facility] [address] [place], [address] Calcium [Mass/Vol] 9.4 mg/dL Normal 7.6-11.0 [facility] Comment on above: Performed By: #### L 501.4700, L100.0100, L501.5101, L3380.1000, L500.4050, L501.2300, L501.5200 ####[facility] [address] [place], [address] Chloride [Moles/Vol] 106 mmol/L Normal 98-108 [facility] Comment on above: Performed By: #### L 501.4700, L100.0100, L501.5101, L3380.1000, L500.4050, L501.2300, L501.5200 ####[facility] [address] [place], [address] CO2 [Moles/Vol] 25.3 mmol/L Normal 21.0-32.0 [facility] Comment on above: Performed By: #### L 501.4700, L100.0100, L501.5101, L3380.1000, L500.4050, L501.2300, L501.5200 ####[facility] [address] [place], [address] Creatinine [Mass/Vol] 0.80 mg/dL Normal 0.70-1.20 [facility] Comment on above: Performed By: #### L 501.4700, L100.0100, L501.5101, L3380.1000, L500.4050, L501.2300, L501.5200 ####[facility] [address] [place], [address] GAP 11 Normal 5-15 [facility] Comment on above: Performed By: #### L 501.4700, L100.0100, L501.5101, L3380.1000, L500.4050, L501.2300, L501.5200 ####[facility] [address] [place], [address] GFR/1.73 sq M.predicted among non-blacks MDRD (S/P/Bld) [Vol rate/Area] 101 mL/min/{1.73_m2} Normal >60 [facility] Comment on above: Result Comment: mL/m in/1.73m2 CKD-EPI Creatinine Equation (2020) Performed By: #### L 501.4700, L100.0100, L501.5101, L3380.1000, L500.4050, L501.2300, L501.5200 ####[facility] [address] [place], [address] Globulin (S) [Mass/Vol] 2.9 g/dL Normal 2.2-4.2 [facility] Comment on above: Performed By: #### L 501.4700, L100.0100, L501.5101, L3380.1000, L500.4050, L501.2300, L501.5200 ####[facility] [address] [place], [address] Glucose [Mass/Vol] 82 mg/dL Normal 70-99 [facility] Comment on above: Performed By: #### L 501.4700, L100.0100, L501.5101, L3380.1000, L500.4050, L501.2300, L501.5200 ####[facility] [address] [place], [address] Potassium [Moles/Vol] 4.6 mmol/L Normal 3.3-5.1 [facility] Comment on above: Performed By: #### L 501.4700, L100.0100, L501.5101, L3380.1000, L500.4050, L501.2300, L501.5200 ####[facility] [address] [place], [address] Sodium [Moles/Vol] 143 mmol/L Normal 133-145 [facility] Comment on above: Performed By: #### L 501.4700, L100.0100, L501.5101, L3380.1000, L500.4050, L501.2300, L501.5200 ####[facility] [address] [place], [address] T PROT 6.8 g/dL Normal 5.9-8.4 [facility] Comment on above: Performed By: #### L 501.4700, L100.0100, L501.5101, L3380.1000, L500.4050, L501.2300, L501.5200 ####[facility] [address] [place], [address] Urea nitrogen [Mass/Vol] 24 mg/dL High 4-19 [facility] Comment on above: Performed By: #### L 501.4700, L100.0100, L501.5101, L3380.1000, L500.4050, L501.2300, L501.5200 ####[facility] [address] [place], [address] Magnesiumon 07-14-2024 Magnesium [Mass/Vol] 1.8 mg/dL Normal 1.5-2.2 [facility] Comment on above: Performed By: #### L 501.4700, L100.0100, L501.5101, L3380.1000, L500.4050, L501.2300, L501.5200 ####[facility] [id number] [place], [address] Phosphoruson 07-14-2024 Phosphate [Mass/Vol] 4.2 mg/dL Normal 2.7-4.5 [facility] Comment on above: Performed By: #### L 501.4700, L100.0100, L501.5101, L3380.1000, L500.4050, L501.2300, L501.5200 ####[facility] [id number] [place], [address] Platelet estimateon 07-15-19 25 Platelets LM Ql (Bld) A ADEQ [facility] L501.5101on 07-13-2024 GGTP 24 IU/L Normal 0-65 [facility] Comment on above: Order Comment: Test( s) 155530-Aqnnkripom (FK506), Bloodwas developed and its performance characteristicsdetermined by [facility]. It has not been cleared or approvedby the Food and Drug Administration. Result Comment: Perf ormed at: [facility] [address] [id number] Director: Sergio Machado MD, Phone: [phone] at: [facility] [address] [id number] Director: Red Graham PhD, Phone: [phone] Performed By: #### L 3380.1000, L501.5101, L501.4700, L501.5200, L100.0100, L501.2300, L3410.9992, L500.4050 ####[facility] [address] [place], [address] Tacrolimus (Prograf)on 07-13 Tacrolimus (Bld) [Mass/Vol] 8.8 ng/mL Normal 5.0-20.0 [facility] Comment on above: Order Comment: Test( s) 648102-Olobjbgcdv (FK506), Bloodwas developed and its performance characteristicsdetermined by [facility]. It has not been cleared or approvedby the Food and Drug Administration. Result Comment: Targ et steady state trough concentration forTacrolimus varies based on type of organ transplantimmunosuppressive protocol and other patient specificfactors. Tacrolimus trough concentrations should beinterpreted in conjunction with clinical assessmentsof rejection and tolerability. Values obtained withdifferent assay methods cannot be used interchangeablydue to differences in assay methods and cross-reactivtywith metabolites, nor should correction factors beapplied. Therefore, consistent use of one assay forindividual patients is recommended.Detection Limit = 0.5 ng/mLPerformed by LC-MS/MS technology. Performed By: #### L 3380.1000, L501.5101, L501.4700, L501.5200, L100.0100, L501.2300, L3410.9992, L500.4050 ####[facility] [address] [place], [place], [phone] Bilirubin, Directon 07-12-19 25 Bilirubin.direct [Mass/Vol] 0.17 mg/dL Normal 0.00-0.30 [facility] Comment on above: Performed By: #### L 3380.1000, L501.5101, L501.4700, L501.5200, L100.0100, L501.2300, L3410.9992, L500.4050 ####[facility] [address] [place], [place], [id number] CBC W/Diff, Automatedon 05 Absolute Lymph 1.00 X10 3/uL Normal 0.83-4.51 [facility] Comment on above: Performed By: #### L 3380.1000, L501.5101, L501.4700, L501.5200, L100.0100, L501.2300, L3410.9992, L500.4050 ####[facility] [address] [place], [place], [phone](196) Absolute Neut 2.6 X10 3/uL Normal 2.0-7.7 [facility] Comment on above: Performed By: #### L 3380.1000, L501.5101, L501.4700, L501.5200, L100.0100, L501.2300, L3410.9992, L500.4050 ####[facility] [address] [place], [address] Basophils/100 WBC (Bld) 1.5 % High 0-1 [facility] Comment on above: Performed By: #### L 3380.1000, L501.5101, L501.4700, L501.5200, L100.0100, L501.2300, L3410.9992, L500.4050 ####[facility] [address] [place], [address] Eosinophils/100 WBC (Bld) 0.0 % Normal 0-5 [facility] Comment on above: Performed By: #### L 3380.1000, L501.5101, L501.4700, L501.5200, L100.0100, L501.2300, L3410.9992, L500.4050 ####[facility] [address] [place], [address] Erythrocyte distribution width (RBC) [Ratio] 17.6 % High 11.6-14.6 [facility] Comment on above: Performed By: #### L 3380.1000, L501.5101, L501.4700, L501.5200, L100.0100, L501.2300, L3410.9992, L500.4050 ####[facility] [address] [place], [address] Hematocrit (Bld) [Volume fraction] 34.5 % Low 40-54 [facility] Comment on above: Performed By: #### L 3380.1000, L501.5101, L501.4700, L501.5200, L100.0100, L501.2300, L3410.9992, L500.4050 ####[facility] [address] [place], [address] Hemoglobin (Bld) [Mass/Vol] 10.8 g/dL Low 13.0-16.5 [facility] Comment on above: Performed By: #### L 3380.1000, L501.5101, L501.4700, L501.5200, L100.0100, L501.2300, L3410.9992, L500.4050 ####[facility] [address] [place], [address] IG% 1.500 High 0.0-0.9 [facility] Comment on above: Result Comment: IG% - Immature Granulocytes (promyelocytes, myelocytes andmetamyelocytes) > 1% indicates that a LEFT SHIFT is Present. Performed By: #### L 3380.1000, L501.5101, L501.4700, L501.5200, L100.0100, L501.2300, L3410.9992, L500.4050 ####[facility] [address] [place], [address] Lymphocytes/100 WBC (Bld) 24.4 % Normal 19-41 [facility] Comment on above: Performed By: #### L 3380.1000, L501.5101, L501.4700, L501.5200, L100.0100, L501.2300, L3410.9992, L500.4050 ####[facility] [address] [place], [address] MCH (RBC) [Entitic mass] 31.0 pg Normal 27.0-32.0 [facility] Comment on above: Performed By: #### L 3380.1000, L501.5101, L501.4700, L501.5200, L100.0100, L501.2300, L3410.9992, L500.4050 ####[facility] [address] [place], [address] MCHC (RBC) [Mass/Vol] 31.3 g/dL Low 32-36 [facility] Comment on above: Performed By: #### L 3380.1000, L501.5101, L501.4700, L501.5200, L100.0100, L501.2300, L3410.9992, L500.4050 ####[facility] [address] [place], [address] MCV (RBC) [Entitic vol] 99.1 fL High 80-94 [facility] Comment on above: Performed By: #### L 3380.1000, L501.5101, L501.4700, L501.5200, L100.0100, L501.2300, L3410.9992, L500.4050 ####[facility] [address] [place], [address] Monocytes/100 WBC (Bld) 9.3 % Normal 0-10 [facility] Comment on above: Performed By: #### L 3380.1000, L501.5101, L501.4700, L501.5200, L100.0100, L501.2300, L3410.9992, L500.4050 ####[facility] [address] [place], [address] Neutrophils/100 WBC (Bld) 63.3 % Normal 47-70 [facility] Comment on above: Performed By: #### L 3380.1000, L501.5101, L501.4700, L501.5200, L100.0100, L501.2300, L3410.9992, L500.4050 ####[facility] [address] [place], [address] Nucleated RBC (Bld) [#/Vol] 0 10*3/uL Normal 0-5 [facility] Comment on above: Performed By: #### L 3380.1000, L501.5101, L501.4700, L501.5200, L100.0100, L501.2300, L3410.9992, L500.4050 ####[facility] [address] [place], [address]( Platelet mean volume (Bld) [Entitic vol] 10.0 fL Normal 6.2-12.0 [facility] Comment on above: Performed By: #### L 3380.1000, L501.5101, L501.4700, L501.5200, L100.0100, L501.2300, L3410.9992, L500.4050 ####[facility] [address] [place], [address](713) Platelets (Bld) [#/Vol] 429 10*3/uL Normal 150-450 [facility] Comment on above: Performed By: #### L 3380.1000, L501.5101, L501.4700, L501.5200, L100.0100, L501.2300, L3410.9992, L500.4050 ####[facility] [address] [place], [address](062) RBC (Bld) [#/Vol] 3.48 10*6/uL Low 4.6-6.2 [facility] Comment on above: Performed By: #### L 3380.1000, L501.5101, L501.4700, L501.5200, L100.0100, L501.2300, L3410.9992, L500.4050 ####[facility] [address] [place], [address] RDW SD 64.1 fl High 35.1-43.9 [facility] Comment on above: Performed By: #### L 3380.1000, L501.5101, L501.4700, L501.5200, L100.0100, L501.2300, L3410.9992, L500.4050 ####[facility] [address] [place], [address] WBC (Bld) [#/Vol] 4.1 10*3/uL Low 4.4-11.0 [facility] Comment on above: Performed By: #### L 3380.1000, L501.5101, L501.4700, L501.5200, L100.0100, L501.2300, L3410.9992, L500.4050 ####[facility] [address] [place], [address] Comprehensive Metabolic Prof ilon 07-11-2024 Albumin [Mass/Vol] 3.9 g/dL Normal 3.4-4.8 [facility] Comment on above: Performed By: #### L 3380.1000, L501.5101, L501.4700, L501.5200, L100.0100, L501.2300, L3410.9992, L500.4050 ####[facility] [address] [place], [address] Albumin/Globulin [Mass ratio] 1.5 {ratio} Normal 0.9-2.4 [facility] Comment on above: Performed By: #### L 3380.1000, L501.5101, L501.4700, L501.5200, L100.0100, L501.2300, L3410.9992, L500.4050 ####[facility] [address] [place], [address] ALK PHOS 134 U/L High 40-129 [facility] Comment on above: Performed By: #### L 3380.1000, L501.5101, L501.4700, L501.5200, L100.0100, L501.2300, L3410.9992, L500.4050 ####[facility] [address] [place], [address] ALT [Catalytic activity/Vol] 21 U/L Normal <=46 [facility] Comment on above: Performed By: #### L 3380.1000, L501.5101, L501.4700, L501.5200, L100.0100, L501.2300, L3410.9992, L500.4050 ####[facility] [address] [place], [address] AST [Catalytic activity/Vol] 20 U/L Normal <=37 [facility] Comment on above: Performed By: #### L 3380.1000, L501.5101, L501.4700, L501.5200, L100.0100, L501.2300, L3410.9992, L500.4050 ####[facility] [address] [place], [address] Bilirubin [Mass/Vol] 0.29 mg/dL Normal 0.00-1.30 [facility] Comment on above: Performed By: #### L 3380.1000, L501.5101, L501.4700, L501.5200, L100.0100, L501.2300, L3410.9992, L500.4050 ####[facility] [address] [place], [address] BUN/CRE 26.9 RATIO High 10-20 [facility] Comment on above: Performed By: #### L 3380.1000, L501.5101, L501.4700, L501.5200, L100.0100, L501.2300, L3410.9992, L500.4050 ####[facility] [address] [place], [address] Calcium [Mass/Vol] 9.5 mg/dL Normal 7.6-11.0 [facility] Comment on above: Performed By: #### L 3380.1000, L501.5101, L501.4700, L501.5200, L100.0100, L501.2300, L3410.9992, L500.4050 ####[facility] [address] [place], [place], [phone]) Chloride [Moles/Vol] 106 mmol/L Normal 98-108 [facility] Comment on above: Performed By: #### L 3380.1000, L501.5101, L501.4700, L501.5200, L100.0100, L501.2300, L3410.9992, L500.4050 ####[facility] [address] [place], [address] CO2 [Moles/Vol] 25.7 mmol/L Normal 21.0-32.0 [facility] Comment on above: Performed By: #### L 3380.1000, L501.5101, L501.4700, L501.5200, L100.0100, L501.2300, L3410.9992, L500.4050 ####[facility] [address] [place], [address] Creatinine [Mass/Vol] 0.85 mg/dL Normal 0.70-1.20 [facility] Comment on above: Performed By: #### L 3380.1000, L501.5101, L501.4700, L501.5200, L100.0100, L501.2300, L3410.9992, L500.4050 ####[facility] [address] [place], [address] GAP 10 Normal 5-15 [facility] Comment on above: Performed By: #### L 3380.1000, L501.5101, L501.4700, L501.5200, L100.0100, L501.2300, L3410.9992, L500.4050 ####[facility] [address] [place], [address] GFR/1.73 sq M.predicted among non-blacks MDRD (S/P/Bld) [Vol rate/Area] 100 mL/min/{1.73_m2} Normal >60 [facility] Comment on above: Result Comment: mL/m in/1.73m2 CKD-EPI Creatinine Equation (2020) Performed By: #### L 3380.1000, L501.5101, L501.4700, L501.5200, L100.0100, L501.2300, L3410.9992, L500.4050 ####[facility] [address] [place], [address] Globulin (S) [Mass/Vol] 2.7 g/dL Normal 2.2-4.2 [facility] Comment on above: Performed By: #### L 3380.1000, L501.5101, L501.4700, L501.5200, L100.0100, L501.2300, L3410.9992, L500.4050 ####[facility] [address] [place], [address] Glucose [Mass/Vol] 91 mg/dL Normal 70-99 [facility] Comment on above: Performed By: #### L 3380.1000, L501.5101, L501.4700, L501.5200, L100.0100, L501.2300, L3410.9992, L500.4050 ####[facility] [address] [place], [address] Potassium [Moles/Vol] 4.3 mmol/L Normal 3.3-5.1 [facility] Comment on above: Performed By: #### L 3380.1000, L501.5101, L501.4700, L501.5200, L100.0100, L501.2300, L3410.9992, L500.4050 ####[facility] [address] [place], [address] Sodium [Moles/Vol] 141 mmol/L Normal 133-145 [facility] Comment on above: Performed By: #### L 3380.1000, L501.5101, L501.4700, L501.5200, L100.0100, L501.2300, L3410.9992, L500.4050 ####[facility] [address] [place], [address] T PROT 6.6 g/dL Normal 5.9-8.4 [facility] Comment on above: Performed By: #### L 3380.1000, L501.5101, L501.4700, L501.5200, L100.0100, L501.2300, L3410.9992, L500.4050 ####[facility] [address] [place], [address] Urea nitrogen [Mass/Vol] 23 mg/dL High 4-19 [facility] Comment on above: Performed By: #### L 3380.1000, L501.5101, L501.4700, L501.5200, L100.0100, L501.2300, L3410.9992, L500.4050 ####[facility] [address] [place], [address] L501.5101on 07-11-2024 GGTP 31 IU/L Normal 0-65 [facility] Comment on above: Order Comment: Test( s) 607659-Gustajfown (FK506), Bloodwas developed and its performance characteristicsdetermined by [facility]. It has not been cleared or approvedby the Food and Drug Administration. Result Comment: Perf ormed at: [address] [id number] Director: Sergio Machado MD, Phone: [phone] at: [id number] [place], [place] [id number] Director: Red Graham PhD, Phone: [phone] Performed By: #### L 501.5101, L100.0100, L500.4050, L501.4700, L501.2300, L501.5200, L3380.1000 ####[facility] [address] [place], [address] Magnesiumon 07-11-2024 Magnesium [Mass/Vol] 1.7 mg/dL Normal 1.5-2.2 [facility] Comment on above: Performed By: #### L 3380.1000, L501.5101, L501.4700, L501.5200, L100.0100, L501.2300, L3410.9992, L500.4050 ####[facility] [address] [place], [address] Phosphoruson 07-11-2024 Phosphate [Mass/Vol] 3.8 mg/dL Normal 2.7-4.5 [facility] Comment on above: Performed By: #### L 3380.1000, L501.5101, L501.4700, L501.5200, L100.0100, L501.2300, L3410.9992, L500.4050 ####[facility] [address] [place], [place], [address] Tacrolimus (Prograf)on 07-11 Tacrolimus (Bld) [Mass/Vol] 10.3 ng/mL Normal 5.0-20.0 [facility] Comment on above: Order Comment: Test( s) 165234-Uaginztiof (FK506), Bloodwas developed and its performance characteristicsdetermined by [facility]. It has not been cleared or approvedby the Food and Drug Administration. Result Comment: Targ et steady state trough concentration forTacrolimus varies based on type of organ transplantimmunosuppressive protocol and other patient specificfactors. Tacrolimus trough concentrations should beinterpreted in conjunction with clinical assessmentsof rejection and tolerability. Values obtained withdifferent assay methods cannot be used interchangeablydue to differences in assay methods and cross-reactivtywith metabolites, nor should correction factors beapplied. Therefore, consistent use of one assay forindividual patients is recommended.Detection Limit = 0.5 ng/mLPerformed by LC-MS/MS technology. Performed By: #### L 501.5101, L100.0100, L500.4050, L501.4700, L501.2300, L501.5200, L3380.1000 ####[facility] [address] [place], [address] Bilirubin, Directon 07-08-19 25 Bilirubin.direct [Mass/Vol] 0.20 mg/dL Normal 0.00-0.30 [facility] Comment on above: Performed By: #### L 501.5101, L100.0100, L500.4050, L501.4700, L501.2300, L501.5200, L3380.1000 ####[facility] [address] [place], [place], [id number] CBC W/Diff, Automatedon 05 SMEAR COMMENT Normal [facility] Comment on above: Result Comment: ' Performed By: #### L 501.5101, L100.0100, L500.4050, L501.4700, L501.2300, L501.5200, L3380.1000 ####[facility] [address] [place], [address] Comprehensive Metabolic Prof ilon 2024 Albumin [Mass/Vol] 3.5 g/dL Normal 3.4-4.8 [facility] Comment on above: Performed By: #### L 501.5101, L100.0100, L500.4050, L501.4700, L501.2300, L501.5200, L3380.1000 ####[facility] [address] [place], [place], [address] Albumin/Globulin [Mass ratio] 1.1 {ratio} Normal 0.9-2.4 [facility] Comment on above: Performed By: #### L 501.5101, L100.0100, L500.4050, L501.4700, L501.2300, L501.5200, L3380.1000 ####[facility] [address] [place], [address] ALK PHOS 147 U/L High 40-129 [facility] Comment on above: Performed By: #### L 501.5101, L100.0100, L500.4050, L501.4700, L501.2300, L501.5200, L3380.1000 ####[facility] [address] [place], [address] ALT [Catalytic activity/Vol] 23 U/L Normal <=46 [facility] Comment on above: Performed By: #### L 501.5101, L100.0100, L500.4050, L501.4700, L501.2300, L501.5200, L3380.1000 ####[facility] [address] [place], [address] AST [Catalytic activity/Vol] 22 U/L Normal <=37 [facility] Comment on above: Performed By: #### L 501.5101, L100.0100, L500.4050, L501.4700, L501.2300, L501.5200, L3380.1000 ####[facility] [address] [place], [address] Bilirubin [Mass/Vol] 0.30 mg/dL Normal 0.00-1.30 [facility] Comment on above: Performed By: #### L 501.5101, L100.0100, L500.4050, L501.4700, L501.2300, L501.5200, L3380.1000 ####[facility] [address] [place], [address] BUN/CRE 23.8 RATIO High 10-20 [facility] Comment on above: Performed By: #### L 501.5101, L100.0100, L500.4050, L501.4700, L501.2300, L501.5200, L3380.1000 ####[facility] [address] [place], [address] Calcium [Mass/Vol] 9.2 mg/dL Normal 7.6-11.0 [facility] Comment on above: Performed By: #### L 501.5101, L100.0100, L500.4050, L501.4700, L501.2300, L501.5200, L3380.1000 ####[facility] [address] [place], [address] Chloride [Moles/Vol] 104 mmol/L Normal 98-108 [facility] Comment on above: Performed By: #### L 501.5101, L100.0100, L500.4050, L501.4700, L501.2300, L501.5200, L3380.1000 ####[facility] [address] [place], [address] CO2 [Moles/Vol] 25.4 mmol/L Normal 21.0-32.0 [facility] Comment on above: Performed By: #### L 501.5101, L100.0100, L500.4050, L501.4700, L501.2300, L501.5200, L3380.1000 ####[facility] [address] [place], [address] Creatinine [Mass/Vol] 0.96 mg/dL Normal 0.70-1.20 [facility] Comment on above: Performed By: #### L 501.5101, L100.0100, L500.4050, L501.4700, L501.2300, L501.5200, L3380.1000 ####[facility] [address] [place], [address] GAP 11 Normal 5-15 [facility] Comment on above: Performed By: #### L 501.5101, L100.0100, L500.4050, L501.4700, L501.2300, L501.5200, L3380.1000 ####[facility] [address] [place], [address] GFR/1.73 sq M.predicted among non-blacks MDRD (S/P/Bld) [Vol rate/Area] 90 mL/min/{1.73_m2} Normal >60 [facility] Comment on above: Result Comment: mL/m in/1.73m2 CKD-EPI Creatinine Equation (2020) Performed By: #### L 501.5101, L100.0100, L500.4050, L501.4700, L501.2300, L501.5200, L3380.1000 ####[facility] [address] [place], [address] Globulin (S) [Mass/Vol] 3.3 g/dL Normal 2.2-4.2 [facility] Comment on above: Performed By: #### L 501.5101, L100.0100, L500.4050, L501.4700, L501.2300, L501.5200, L3380.1000 ####[facility] [address] [place], [address] Glucose [Mass/Vol] 85 mg/dL Normal 70-99 [facility] Comment on above: Performed By: #### L 501.5101, L100.0100, L500.4050, L501.4700, L501.2300, L501.5200, L3380.1000 ####[facility] [address] [place], [address] Potassium [Moles/Vol] 4.9 mmol/L Normal 3.3-5.1 [facility] Comment on above: Performed By: #### L 501.5101, L100.0100, L500.4050, L501.4700, L501.2300, L501.5200, L3380.1000 ####[facility] [address] [place], [address] Sodium [Moles/Vol] 140 mmol/L Normal 133-145 [facility] Comment on above: Performed By: #### L 501.5101, L100.0100, L500.4050, L501.4700, L501.2300, L501.5200, L3380.1000 ####[facility] [address] [place], [address] T PROT 6.8 g/dL Normal 5.9-8.4 [facility] Comment on above: Performed By: #### L 501.5101, L100.0100, L500.4050, L501.4700, L501.2300, L501.5200, L3380.1000 ####[facility] [address] [place], [address] Urea nitrogen [Mass/Vol] 23 mg/dL High 4-19 [facility] Comment on above: Performed By: #### L 501.5101, L100.0100, L500.4050, L501.4700, L501.2300, L501.5200, L3380.1000 ####[facility] [address] [place], [address] L501.5101on 2024 GGTP 28 IU/L Normal 0-65 [facility] Comment on above: Order Comment: Test( s) [id number] (FK506), Bloodwas developed and its performance characteristicsdetermined by [facility]. It has not been cleared or approvedby the Food and Drug Administration. Result Comment: Perf ormed at: - [facility] [id number] Director: Sergio Machado MD, Phone: [phone] at: [facility] [address] [id number] Director: Red Graham PhD, Phone: [phone] Performed By: #### L 100.0100, L501.5200, L501.4700, L501.5101, L3380.1000, L500.4050, L501.2300 ####[facility] [address] [place], [address] Magnesiumon 2024 Magnesium [Mass/Vol] 1.8 mg/dL Normal 1.5-2.2 [facility] Comment on above: Performed By: #### L 501.5101, L100.0100, L500.4050, L501.4700, L501.2300, L501.5200, L3380.1000 ####[facility] [address] [place], [address] Phosphoruson 2024 Phosphate [Mass/Vol] 3.8 mg/dL Normal 2.7-4.5 [facility] [facility] Comment on above: Performed By: #### L 501.5101, L100.0100, L500.4050, L501.4700, L501.2300, L501.5200, L3380.1000 ####[facility] [address] [place], [address] Tacrolimus (Prograf)on 07-07 Tacrolimus (Bld) [Mass/Vol] 9.4 ng/mL Normal 5.0-20.0 [facility] Comment on above: Order Comment: Test( s) 261442-Jucpsljcsr (FK506), Bloodwas developed and its performance characteristicsdetermined by [facility]. It has not been cleared or approvedby the Food and Drug Administration. Result Comment: Samia et steady state trough concentration forTacrolimus varies based on type of organ transplantimmunosuppressive protocol and other patient specificfactors. Tacrolimus trough concentrations should beinterpreted in conjunction with clinical assessmentsof rejection and tolerability. Values obtained withdifferent assay methods cannot be used interchangeablydue to differences in assay methods and cross-reactivtywith metabolites, nor should correction factors beapplied. Therefore, consistent use of one assay forindividual patients is recommended.Detection Limit = 0.5 ng/mLPerformed by LC-MS/MS technology. Performed By: #### L 100.0100, L501.5200, L501.4700, L501.5101, L3380.1000, L500.4050, L501.2300 ####[facility] [address] [place], [place], [id number] Bilirubin, Directon 07-05-19 25 Bilirubin.direct [Mass/Vol] 0.21 mg/dL Normal 0.00-0.30 [facility] Comment on above: Performed By: #### L 100.0100, L501.5200, L501.4700, L501.5101, L3380.1000, L500.4050, L501.2300 ####[facility] [address] [place], [place], [id number] CBC W/Diff, Automatedon PLT EST SLT INC Normal ADEQ [facility] Comment on above: Performed By: #### L 100.0100, L501.5200, L501.4700, L501.5101, L3380.1000, L500.4050, L501.2300 ####[facility] [address] [place], [address] Comprehensive Metabolic Prof ilon 07-04-2024 Albumin [Mass/Vol] 3.9 g/dL Normal 3.5-5.0 [facility] Comment on above: Performed By: #### L 100.0100, L501.5200, L501.4700, L501.5101, L3380.1000, L500.4050, L501.2300 ####[facility] [address] [place], [place], [id number] Albumin/Globulin [Mass ratio] 1.4 {ratio} Normal 0.9-2.4 [facility] Comment on above: Performed By: #### L 100.0100, L501.5200, L501.4700, L501.5101, L3380.1000, L500.4050, L501.2300 ####[facility] [address] [place], [address] ALK PHOS 160 U/L High 40-129 [facility] Comment on above: Performed By: #### L 100.0100, L501.5200, L501.4700, L501.5101, L3380.1000, L500.4050, L501.2300 ####[facility] [address] [place], [address] ALT [Catalytic activity/Vol] 20 U/L Normal <=46 [facility] Comment on above: Performed By: #### L 100.0100, L501.5200, L501.4700, L501.5101, L3380.1000, L500.4050, L501.2300 ####[facility] [address] [place], [address] AST [Catalytic activity/Vol] 24 U/L Normal <=37 [facility] Comment on above: Performed By: #### L 100.0100, L501.5200, L501.4700, L501.5101, L3380.1000, L500.4050, L501.2300 ####[facility] [address] [place], [address] Bilirubin [Mass/Vol] 0.31 mg/dL Normal 0.00-1.30 [facility] Comment on above: Performed By: #### L 100.0100, L501.5200, L501.4700, L501.5101, L3380.1000, L500.4050, L501.2300 ####[facility] [address] [place], [address] BUN/CRE 23.9 RATIO High 10-20 [facility] Comment on above: Performed By: #### L 100.0100, L501.5200, L501.4700, L501.5101, L3380.1000, L500.4050, L501.2300 ####[facility] [address] [place], [address] Calcium [Mass/Vol] 9.4 mg/dL Normal 7.6-11.0 [facility] Comment on above: Performed By: #### L 100.0100, L501.5200, L501.4700, L501.5101, L3380.1000, L500.4050, L501.2300 ####[facility] [address] [place], [address] Chloride [Moles/Vol] 105 mmol/L Normal 98-108 [facility] Comment on above: Performed By: #### L 100.0100, L501.5200, L501.4700, L501.5101, L3380.1000, L500.4050, L501.2300 ####[facility] [address] [place], [address] CO2 [Moles/Vol] 26.4 mmol/L Normal 21.0-32.0 [facility] Comment on above: Performed By: #### L 100.0100, L501.5200, L501.4700, L501.5101, L3380.1000, L500.4050, L501.2300 ####[facility] [address] [place], [address] GAP 8 Normal 5-15 [facility] Comment on above: Performed By: #### L 100.0100, L501.5200, L501.4700, L501.5101, L3380.1000, L500.4050, L501.2300 ####[facility] [address] [place], [address] GFR/1.73 sq M.predicted among non-blacks MDRD (S/P/Bld) [Vol rate/Area] 103 mL/min/{1.73_m2} Normal >60 [facility] Comment on above: Result Comment: mL/m in/1.73m2 CKD-EPI Creatinine Equation (2020) Performed By: #### L 100.0100, L501.5200, L501.4700, L501.5101, L3380.1000, L500.4050, L501.2300 ####[facility] [address] [place], [address] Globulin (S) [Mass/Vol] 2.8 g/dL Normal 2.2-4.2 [facility] Comment on above: Performed By: #### L 100.0100, L501.5200, L501.4700, L501.5101, L3380.1000, L500.4050, L501.2300 ####[facility] [address] [place], [address] Potassium [Moles/Vol] 4.8 mmol/L Normal 3.3-5.1 [facility] Comment on above: Performed By: #### L 100.0100, L501.5200, L501.4700, L501.5101, L3380.1000, L500.4050, L501.2300 ####[facility] [address] [place], [address] Sodium [Moles/Vol] 139 mmol/L Normal 133-145 [facility] Comment on above: Performed By: #### L 100.0100, L501.5200, L501.4700, L501.5101, L3380.1000, L500.4050, L501.2300 ####[facility] [address] [place], [address] T PROT 6.7 g/dL Normal 5.9-8.4 [facility] Comment on above: Performed By: #### L 100.0100, L501.5200, L501.4700, L501.5101, L3380.1000, L500.4050, L501.2300 ####[facility] [address] [place], [address] Creatinine [Mass/Vol] 0.78 mg/dL Normal 0.70-1.20 [facility] Comment on above: Performed By: #### L 100.0100, L501.5200, L501.4700, L501.5101, L3380.1000, L500.4050, L501.2300 ####[facility] [address] [place], [address] Glucose [Mass/Vol] 88 mg/dL Normal 70-99 [facility] Comment on above: Performed By: #### L 100.0100, L501.5200, L501.4700, L501.5101, L3380.1000, L500.4050, L501.2300 ####[facility] [address] [place], [address] Urea nitrogen [Mass/Vol] 19 mg/dL Normal 4-19 [facility] Comment on above: Performed By: #### L 100.0100, L501.5200, L501.4700, L501.5101, L3380.1000, L500.4050, L501.2300 ####[facility] [address] [place], [address] L501.5101on 07-04-2024 GGTP 26 IU/L Normal 0-65 [facility] Comment on above: Order Comment: Test( s) 150511-Jzowphfznf (FK506), Bloodwas developed and its performance characteristicsdetermined by [facility]. It has not been cleared or approvedby the Food and Drug Administration. Result Comment: Perf ormed at: - Lab[address] [id number] Director: Sergio Machado MD, Phone: [phone] at: [facility] SSEVRobert [facility] HamiltonGrvwgt[address] [place], [place] [id number] Director: Red Graham PhD, Phone: [phone] Performed By: #### L 501.2300, L100.0100, L500.4050, L3380.1000, L501.5200, L501.4700, L501.5101 ####[facility] [address] [place], [address] Magnesiumon 07-04-2024 Magnesium [Mass/Vol] 1.8 mg/dL Normal 1.5-2.2 [facility] Comment on above: Performed By: #### L 100.0100, L501.5200, L501.4700, L501.5101, L3380.1000, L500.4050, L501.2300 ####[facility] [address] [place], [place], [address] Phosphoruson 07-04-2024 Phosphate [Mass/Vol] 3.7 mg/dL Normal 2.7-4.5 [facility] Comment on above: Performed By: #### L 100.0100, L501.5200, L501.4700, L501.5101, L3380.1000, L500.4050, L501.2300 ####[facility] [address] [place], [address] Tacrolimus (Prograf)on 07-04 Tacrolimus (Bld) [Mass/Vol] 6.9 ng/mL Normal 5.0-20.0 [facility] Comment on above: Order Comment: Test( s) [id number]-Xorclrfrdt (FK506), Bloodwas developed and its performance characteristicsdetermined by [facility]. It has not been cleared or approvedby the Food and Drug Administration. Result Comment: Ubaldog et steady state trough concentration forTacrolimus varies based on type of organ transplantimmunosuppressive protocol and other patient specificfactors. Tacrolimus trough concentrations should beinterpreted in conjunction with clinical assessmentsof rejection and tolerability. Values obtained withdifferent assay methods cannot be used interchangeablydue to differences in assay methods and cross-reactivtywith metabolites, nor should correction factors beapplied. Therefore, consistent use of one assay forindividual patients is recommended.Detection Limit = 0.5 ng/mLPerformed by LC-MS/MS technology. Performed By: #### L 501.2300, L100.0100, L500.4050, L3380.1000, L501.5200, L501.4700, L501.5101 ####[facility] [address] [facility] [place], [place], [address] Bilirubin, Directon 07-01-19 25 Bilirubin.direct [Mass/Vol] 0.25 mg/dL Normal 0.00-0.30 [facility] Comment on above: Performed By: #### L 501.2300, L100.0100, L500.4050, L3380.1000, L501.5200, L501.4700, L501.5101 ####[facility] [address] [facility] [place], [place], [address] Blood basophils/100 leukocyt eson 06-30-2024 Basophils/100 WBC (Bld) 1 % 0-1 [facility] Blood lymphocytes/100 leukoc yteson 06-30-2024 Lymphocytes/100 WBC (Bld) 17 % Low 19-41 [facility] Blood metamyelocytes/100 susy kocyteson 06-30-2024 Metamyelocytes/100 WBC (Bld) 1 % 0-1 [facility] Blood monocytes/100 leukocyt eson 06-30-2024 Monocytes/100 WBC (Bld) 4 % 0-10 [facility] Blood segmented neutrophils/ 100 leukocyteson 06-30-2024 Segmented neutrophils/100 WBC (Bld) 77 % High 47-70 [facility] Comprehensive Metabolic Prof ilon 06-30-2024 Albumin [Mass/Vol] 4.0 g/dL Normal 3.5-5.0 [facility] Comment on above: Performed By: #### L 501.2300, L100.0100, L500.4050, L3380.1000, L501.5200, L501.4700, L501.5101 ####[facility] [address] [place], [address] Albumin/Globulin [Mass ratio] 1.5 {ratio} Normal 0.9-2.4 [facility] Comment on above: Performed By: #### L 501.2300, L100.0100, L500.4050, L3380.1000, L501.5200, L501.4700, L501.5101 ####[facility] [address] [place], [address] ALK PHOS 168 U/L High 40-129 [facility] Comment on above: Performed By: #### L 501.2300, L100.0100, L500.4050, L3380.1000, L501.5200, L501.4700, L501.5101 ####[facility] [address] [place], [address] ALT [Catalytic activity/Vol] 14 U/L Normal <=46 [facility] Comment on above: Performed By: #### L 501.2300, L100.0100, L500.4050, L3380.1000, L501.5200, L501.4700, L501.5101 ####[facility] [address] [place], [address] AST [Catalytic activity/Vol] 23 U/L Normal <=37 [facility] Comment on above: Performed By: #### L 501.2300, L100.0100, L500.4050, L3380.1000, L501.5200, L501.4700, L501.5101 ####[facility] [address] [place], [address] Bilirubin [Mass/Vol] 0.38 mg/dL Normal 0.00-1.30 [facility] Comment on above: Performed By: #### L 501.2300, L100.0100, L500.4050, L3380.1000, L501.5200, L501.4700, L501.5101 ####[facility] [address] [place], [address] BUN/CRE 30.8 RATIO High 10-20 [facility] Comment on above: Performed By: #### L 501.2300, L100.0100, L500.4050, L3380.1000, L501.5200, L501.4700, L501.5101 ####[facility] [address] [place], [address] Calcium [Mass/Vol] 9.2 mg/dL Normal 7.6-11.0 [facility] Comment on above: Performed By: #### L 501.2300, L100.0100, L500.4050, L3380.1000, L501.5200, L501.4700, L501.5101 ####[facility] [address] [place], [address] Chloride [Moles/Vol] 103 mmol/L Normal 98-108 [facility] Comment on above: Performed By: #### L 501.2300, L100.0100, L500.4050, L3380.1000, L501.5200, L501.4700, L501.5101 ####[facility] [address] [place], [address] CO2 [Moles/Vol] 24.3 mmol/L Normal 21.0-32.0 [facility] Comment on above: Performed By: #### L 501.2300, L100.0100, L500.4050, L3380.1000, L501.5200, L501.4700, L501.5101 ####[facility] [address] [place], [address] Creatinine [Mass/Vol] 0.72 mg/dL Normal 0.70-1.20 [facility] Comment on above: Performed By: #### L 501.2300, L100.0100, L500.4050, L3380.1000, L501.5200, L501.4700, L501.5101 ####[facility] [address] [place], [address] GAP 12 Normal 5-15 [facility] Comment on above: Performed By: #### L 501.2300, L100.0100, L500.4050, L3380.1000, L501.5200, L501.4700, L501.5101 ####[facility] [address] [place], [address] GFR/1.73 sq M.predicted among non-blacks MDRD (S/P/Bld) [Vol rate/Area] 105 mL/min/{1.73_m2} Normal >60 [facility] Comment on above: Result Comment: mL/m in/1.73m2 CKD-EPI Creatinine Equation (2020) Performed By: #### L 501.2300, L100.0100, L500.4050, L3380.1000, L501.5200, L501.4700, L501.5101 ####[facility] [address] [place], [address] Globulin (S) [Mass/Vol] 2.7 g/dL Normal 2.2-4.2 [facility] Comment on above: Performed By: #### L 501.2300, L100.0100, L500.4050, L3380.1000, L501.5200, L501.4700, L501.5101 ####[facility] [address] [place], [address] Glucose [Mass/Vol] 91 mg/dL Normal 70-99 [facility] Comment on above: Performed By: #### L 501.2300, L100.0100, L500.4050, L3380.1000, L501.5200, L501.4700, L501.5101 ####[facility] [address] [place], [address] Potassium [Moles/Vol] 4.5 mmol/L Normal 3.3-5.1 [facility] Comment on above: Performed By: #### L 501.2300, L100.0100, L500.4050, L3380.1000, L501.5200, L501.4700, L501.5101 ####[facility] [address] [place], [address] Sodium [Moles/Vol] 139 mmol/L Normal 133-145 [facility] Comment on above: Performed By: #### L 501.2300, L100.0100, L500.4050, L3380.1000, L501.5200, L501.4700, L501.5101 ####[facility] [address] [place], [address] T PROT 6.6 g/dL Normal 5.9-8.4 [facility] Comment on above: Performed By: #### L 501.2300, L100.0100, L500.4050, L3380.1000, L501.5200, L501.4700, L501.5101 ####[facility] [address] [place], [address] Urea nitrogen [Mass/Vol] 22 mg/dL High 4-19 [facility] Comment on above: Performed By: #### L 501.2300, L100.0100, L500.4050, L3380.1000, L501.5200, L501.4700, L501.5101 ####[facility] [address] [place], [address] Erythrocyte morphology asses smenton 06-30-2024 RBC morphology finding Nom (Bld) N CHROM NORMAL NORM C&C [facility] Laboratory - Hematology and Cell countson 06-30-2024 Anisocytosis Ql (Bld) 1+ [facility] Magnesiumon 06-30-2024 Magnesium [Mass/Vol] 1.9 mg/dL Normal 1.5-2.2 [facility] Comment on above: Performed By: #### L 501.2300, L100.0100, L500.4050, L3380.1000, L501.5200, L501.4700, L501.5101 ####[facility] [address] [place], [place], [address] Phosphoruson 06-30-2024 Phosphate [Mass/Vol] 4.0 mg/dL Normal 2.7-4.5 [facility] Comment on above: Performed By: #### L 501.2300, L100.0100, L500.4050, L3380.1000, L501.5200, L501.4700, L501.5101 ####[facility] [address] [place], [place], [address] Review by pathologiston 05 Pathologist review Deandre (Unsp spec) [Interp] Reviewed [facility] Comment on above: Previous reported re sult: Patricia delgado Edited by: SAMIR on 07/21/24:1543SEE REPORT IN PATIENT'S EMR AMENDED REPORT 07/21/24 1543 PATH REV previously reported as: Patricia delgado Total cell counton 5 Cells counted Mol[employer] (Bld/Tiss) [#] 100 MANUAL DIFF [facility] L501.5101on 06-29-2024 GGTP 28 IU/L Normal 0-65 [facility] Comment on above: Order Comment: Test( s) [id number]-Jmdwjbqhpx (FK506), Bloodwas developed and its performance characteristicsdetermined by [facility]. It has not been cleared or approvedby the Food and Drug Administration. Result Comment: Perf ormed at: [facility] [address] [id number] Director: Sergio Machado MD, Phone: [phone] at: [address] [id number] Director: Red Graham PhD, Phone: [phone] Performed By: #### L 100.0100, L501.5101, L501.5200, L3380.1000, L501.4700, L501.2300, L500.4050 ####[facility] [address] [place], [address] Tacrolimus (Prograf)on 06-29 Tacrolimus (Bld) [Mass/Vol] 5.6 ng/mL Normal 5.0-20.0 [facility] Comment on above: Order Comment: Test( s) 109686-Cicbaajmwv (FK506), Bloodwas developed and its performance characteristicsdetermined by [facility]. It has not been cleared or approvedby the Food and Drug Administration. Result Comment: Targ et steady state trough concentration forTacrolimus varies based on type of organ transplantimmunosuppressive protocol and other patient specificfactors. Tacrolimus trough concentrations should beinterpreted in conjunction with clinical assessmentsof rejection and tolerability. Values obtained withdifferent assay methods cannot be used interchangeablydue to differences in assay methods and cross-reactivtywith metabolites, nor should correction factors beapplied. Therefore, consistent use of one assay forindividual patients is recommended.Detection Limit = 0.5 ng/mLPerformed by LC-MS/MS technology Please note reference interval change Performed By: #### L 100.0100, L501.5101, L501.5200, L3380.1000, L501.4700, L501.2300, L500.4050 ####[facility] [address] [place], [address] Absolute lymphocyte counton 06-27-2024 Lymphocytes Auto (Unsp spec) [#/Vol] 0.86 10*3/uL 0.83-4.51 [facility] Absolute neutrophil counton 06-27-2024 Neutrophils (Bld) [#/Vol] 5.1 10*3/uL 2.0-7.7 [facility] Anion gap in Serum or Plasma on 06-27-2024 Anion gap [Moles/Vol] 10 mmol/L 5-15 [facility] BUN/creatinine ratioon 06-27 Urea nitrogen/Creatinine [Mass ratio] 32.0 mg/mg High 10-20 [facility] Bilirubin directon 5 Bilirubin.direct [Mass/Vol] 0.27 mg/dL 0.00-0.30 [facility] Bilirubin, Directon 06-28-19 25 Bilirubin.direct [Mass/Vol] 0.27 mg/dL Normal 0.00-0.30 [facility] Comment on above: Performed By: #### L 100.0100, L501.5101, L501.5200, L3380.1000, L501.4700, L501.2300, L500.4050 ####[facility] [address] [place], [address] Bilirubin, totalon 5 Bilirubin [Mass/Vol] 0.39 mg/dL 0.00-1.30 [facility] Blood band neutrophil count as percentage of total leukocyteson 06-27-2024 Band form neutrophils/100 WBC (Bld) 1 % 0-5 [facility] Blood eosinophils/100 leukoc yteson 06-27-2024 Eosinophils/100 WBC (Bld) 1 % 0-5 [facility] Blood lymphocytes/100 leukoc yton 06-27-2024 Lymphocytes/100 WBC (Bld) 13 % Low 19-41 [facility] Blood monocytes/100 leukocyt eson 06-27-2024 Monocytes/100 WBC (Bld) 9 % 0-10 [facility] Blood segmented neutrophils/ 100 leukocyteson 06-27-2024 Segmented neutrophils/100 WBC (Bld) 76 % High 47-70 [facility] CBC W/Diff, Automatedon 06-01 Absolute Lymph 0.86 X10 3/uL Normal 0.83-4.51 [facility] Comment on above: Performed By: #### L 100.0100, L501.5101, L501.5200, L3380.1000, L501.4700, L501.2300, L500.4050 ####[facility] [address] [place], [address] Absolute Neut 5.1 X10 3/uL Normal 2.0-7.7 [facility] Comment on above: Performed By: #### L 100.0100, L501.5101, L501.5200, L3380.1000, L501.4700, L501.2300, L500.4050 ####[facility] [address] [place], [address] BAND 1 Normal 0-5 [facility] Comment on above: Performed By: #### L 100.0100, L501.5101, L501.5200, L3380.1000, L501.4700, L501.2300, L500.4050 ####[facility] [address] [place], [address] Eosinophils/100 WBC (Bld) 1 % Normal 0-5 [facility] Comment on above: Performed By: #### L 100.0100, L501.5101, L501.5200, L3380.1000, L501.4700, L501.2300, L500.4050 ####[facility] [address] [place], [address] Lymphocytes (Bld) [#/Vol] 13 10*3/uL Low 19-41 [facility] Comment on above: Performed By: #### L 100.0100, L501.5101, L501.5200, L3380.1000, L501.4700, L501.2300, L500.4050 ####[facility] [address] [place], [address] MONOCYTE 9 Normal 0-10 [facility] Comment on above: Performed By: #### L 100.0100, L501.5101, L501.5200, L3380.1000, L501.4700, L501.2300, L500.4050 ####[facility] [address] [place], [address] PLT EST ADEQUATE Normal ADEQ [facility] Comment on above: Performed By: #### L 100.0100, L501.5101, L501.5200, L3380.1000, L501.4700, L501.2300, L500.4050 ####[facility] [address] [place], [address] RED CELL MORPH NORM C+C Normal NORM C C [facility] Comment on above: Performed By: #### L 100.0100, L501.5101, L501.5200, L3380.1000, L501.4700, L501.2300, L500.4050 ####[facility] [address] [place], [address] SEGS 76 High 47-70 [facility] Comment on above: Performed By: #### L 100.0100, L501.5101, L501.5200, L3380.1000, L501.4700, L501.2300, L500.4050 ####[facility] [address] [place], [address] TOTAL CELLS 100 Normal MANUAL DIFF [facility] Comment on above: Performed By: #### L 100.0100, L501.5101, L501.5200, L3380.1000, L501.4700, L501.2300, L500.4050 ####[facility] [address] [place], [address] Carbon dioxide, total [Moles /volume] in Central venous bloodon 06-27-2024 CO2 [Moles/Vol] 26.7 mmol/L 21.0-32.0 [facility] Chloride assayon 06-27-2024 Chloride [Moles/Vol] 103 mmol/L 98-108 [facility] Comprehensive Metabolic Prof ilon 06-27-2024 Albumin [Mass/Vol] 3.8 g/dL Normal 3.5-5.0 [facility] Comment on above: Performed By: #### L 100.0100, L501.5101, L501.5200, L3380.1000, L501.4700, L501.2300, L500.4050 ####[facility] [address] [place], [address] Albumin/Globulin [Mass ratio] 1.3 {ratio} Normal 0.9-2.4 [facility] Comment on above: Performed By: #### L 100.0100, L501.5101, L501.5200, L3380.1000, L501.4700, L501.2300, L500.4050 ####[facility] [address] [place], [address] ALK PHOS 188 U/L High 40-129 [facility] Comment on above: Performed By: #### L 100.0100, L501.5101, L501.5200, L3380.1000, L501.4700, L501.2300, L500.4050 ####[facility] [address] [place], [address] ALT [Catalytic activity/Vol] 20 U/L Normal <=46 [facility] Comment on above: Performed By: #### L 100.0100, L501.5101, L501.5200, L3380.1000, L501.4700, L501.2300, L500.4050 ####[facility] [address] [place], [address] AST [Catalytic activity/Vol] 20 U/L Normal <=37 [facility] Comment on above: Performed By: #### L 100.0100, L501.5101, L501.5200, L3380.1000, L501.4700, L501.2300, L500.4050 ####[facility] [address] [place], [address] Bilirubin [Mass/Vol] 0.39 mg/dL Normal 0.00-1.30 [facility] Comment on above: Performed By: #### L 100.0100, L501.5101, L501.5200, L3380.1000, L501.4700, L501.2300, L500.4050 ####[facility] [address] [place], [address] BUN/CRE 32.0 RATIO High 10-20 [facility] Comment on above: Performed By: #### L 100.0100, L501.5101, L501.5200, L3380.1000, L501.4700, L501.2300, L500.4050 ####[facility] [address] [place], [address] Calcium [Mass/Vol] 9.5 mg/dL Normal 7.6-11.0 [facility] Comment on above: Performed By: #### L 100.0100, L501.5101, L501.5200, L3380.1000, L501.4700, L501.2300, L500.4050 ####[facility] [address] [place], [address] Chloride [Moles/Vol] 103 mmol/L Normal 98-108 [facility] Comment on above: Performed By: #### L 100.0100, L501.5101, L501.5200, L3380.1000, L501.4700, L501.2300, L500.4050 ####[facility] [address] [place], [address] CO2 [Moles/Vol] 26.7 mmol/L Normal 21.0-32.0 [facility] Comment on above: Performed By: #### L 100.0100, L501.5101, L501.5200, L3380.1000, L501.4700, L501.2300, L500.4050 ####[facility] [address] [place], [address] Creatinine [Mass/Vol] 0.72 mg/dL Normal 0.70-1.20 [facility] Comment on above: Performed By: #### L 100.0100, L501.5101, L501.5200, L3380.1000, L501.4700, L501.2300, L500.4050 ####[facility] [address] [place], [address] GAP 10 Normal 5-15 [facility] Comment on above: Performed By: #### L 100.0100, L501.5101, L501.5200, L3380.1000, L501.4700, L501.2300, L500.4050 ####[facility] [address] [place], [place], [phone](136) GFR/1.73 sq M.predicted among non-blacks MDRD (S/P/Bld) [Vol rate/Area] 105 mL/min/{1.73_m2} Normal >60 [facility] Comment on above: Result Comment: mL/m in/1.73m2 CKD-EPI Creatinine Equation (2020) Performed By: #### L 100.0100, L501.5101, L501.5200, L3380.1000, L501.4700, L501.2300, L500.4050 ####[facility] [address] [place], [address] Globulin (S) [Mass/Vol] 2.9 g/dL Normal 2.2-4.2 [facility] Comment on above: Performed By: #### L 100.0100, L501.5101, L501.5200, L3380.1000, L501.4700, L501.2300, L500.4050 ####[facility] [address] [place], [address] Glucose [Mass/Vol] 100 mg/dL High 70-99 [facility] Comment on above: Performed By: #### L 100.0100, L501.5101, L501.5200, L3380.1000, L501.4700, L501.2300, L500.4050 ####[facility] [address] [place], [address] Potassium [Moles/Vol] 4.5 mmol/L Normal 3.3-5.1 [facility] Comment on above: Performed By: #### L 100.0100, L501.5101, L501.5200, L3380.1000, L501.4700, L501.2300, L500.4050 ####[facility] [address] [place], [address] Sodium [Moles/Vol] 140 mmol/L Normal 133-145 [facility] Comment on above: Performed By: #### L 100.0100, L501.5101, L501.5200, L3380.1000, L501.4700, L501.2300, L500.4050 ####[facility] [address] [place], [address] T PROT 6.7 g/dL Normal 5.9-8.4 [facility] Comment on above: Performed By: #### L 100.0100, L501.5101, L501.5200, L3380.1000, L501.4700, L501.2300, L500.4050 ####[facility] [address] [place], [address] Urea nitrogen [Mass/Vol] 23 mg/dL High 4-19 [facility] Comment on above: Performed By: #### L 100.0100, L501.5101, L501.5200, L3380.1000, L501.4700, L501.2300, L500.4050 ####[facility] [address] [place], [address] Erythrocyte distribution wid th ratioon 06-27-2024 Erythrocyte distribution width (RBC) [Ratio] 17.2 % High 11.6-14.6 [facility] Erythrocyte distribution wid th standard deviationon 06-27-2024 Erythrocyte distribution width (RBC) [Ratio] 60.9 fl High 35.1-43.9 [facility] Erythrocyte morphology asses smenton 06-27-2024 RBC morphology finding Nom (Bld) NORM C+C NORMAL NORM C&C [facility] Gamma glutamyl transferase ( GGT) measurementon 06-27-2024 Amylase [Catalytic activity/Vol] 28 U/L 0-65 [facility] Comment on above: Performed at: [employer] [facility] [facility] [address] [id number] Director: Sergio Machado MD, Phone: [phone] at: [employer] [facility] [id number] Director: Red Graham PhD, Phone: [phone] Glomerular filtration rate ( GFR) estimation/1.73 sq m using serum, plasma, or whole bon 06-27-2024 GFR/1.73 sq M.predicted among non-blacks MDRD (S/P/Bld) [Vol rate/Area] 105 mL/min/{1.73_m2} >60 [facility] Comment on above: mL/min/1.73m2 CKD-EP I Creatinine Equation (2020) HIV Viral Load Quanton 06-27 HIV-1 RNA, PCR < 20 Normal . [facility] Comment on above: Result Comment: HIV- 1 RNA not detectedThe reportable range for this assay is 20 to 10,000,000copies HIV-1 RNA/mL. Performed By: #### L 3890.6102, L7000.7000, L501.5200, L501.4700, L100.0100, L501.2300, L3890.4000, L3410.9992, L500.4050 ####[facility] [address] [place], [address] log10 HIV-1 RNA TNP Normal . [facility] Comment on above: Result Comment: Resu lt Units: nsq43ralk/mLUnable to calculate result since non-numeric resultobtained for component test.Performed at: [address] [id number] Director: Sergio Machado MD, Phone: [phone] Performed By: #### L 3890.6102, L7000.7000, L501.5200, L501.4700, L100.0100, L501.2300, L3890.4000, L3410.9992, L500.4050 ####[facility] [address] [place], [address] Hematocrit Auto (Bld) [Volum e fraction]on 06-27-2024 Hematocrit (Bld) [Volume fraction] 35.0 % Low 40-54 [facility] Hemoglobin measurementon Hemoglobin (Bld) [Mass/Vol] 11.2 g/dL Low 13.0-16.5 [facility] Laboratory - Chemistry and C hemistry - challengeon 06-27-2024 AST [Catalytic activity/Vol] 20 U/L <38 [facility] MCV (mean corpuscular volume ) determinationon 06-27-2024 MCV (RBC) [Entitic vol] 97.0 fL High 80-94 [facility] Magnesiumon 06-27-2024 Magnesium [Mass/Vol] 1.8 mg/dL Normal 1.5-2.2 [facility] Comment on above: Performed By: #### L 100.0100, L501.5101, L501.5200, L3380.1000, L501.4700, L501.2300, L500.4050 ####[facility] [address] [place], [address] Magnesium measurement (mass/ volume)on 06-27-2024 Magnesium (Unsp spec) [Mass/Vol] 1.8 mg/dL 1.5-2.2 [facility] Mean corpuscular hemoglobin (MCH) determinationon 06-27-2024 MCH (RBC) [Entitic mass] 31.0 pg 27.0-32.0 [facility] Mean corpuscular hemoglobin concentration (MCHC) determinationon 06-27-2024 MCHC (RBC) [Mass/Vol] 32.0 g/dL 32-36 [facility] Mean platelet volume determi nationon 06-27-2024 Platelet mean volume (Bld) [Entitic vol] 10.0 fL 6.2-12.0 [facility] Phosphoruson 06-27-2024 Phosphate [Mass/Vol] 3.3 mg/dL Normal 2.7-4.5 [facility] Comment on above: Performed By: #### L 100.0100, L501.5101, L501.5200, L3380.1000, L501.4700, L501.2300, L500.4050 ####[facility] [address] [place] [place], [address] Platelet counton 06-27-2024 Platelets (Bld) [#/Vol] 449 10*3/uL 150-450 [facility] Platelet estimateon 06-28-19 25 Platelets LM Ql (Bld) ADEQUATE ADEQ [facility] Potassium measurement (mass/ volume)on 06-27-2024 Potassium (Unsp spec) [Mass/Vol] 4.5 mmol/L 3.3-5.1 [facility] RBC Auto (Bld) [#/Vol]on RBC (Bld) [#/Vol] 3.61 10*6/uL Low 4.6-6.2 [facility] Serum creatinine measurement (mass/volume)on 06-27-2024 Creatinine [Mass/Vol] 0.72 mg/dL 0.70-1.20 [facility] Serum globulin measurementon 06-27-2024 Globulin (S) [Mass/Vol] 2.9 g/dL 2.2-4.2 [facility] Serum glucose measurement (m ass/volume)on 06-27-2024 Glucose [Mass/Vol] 100 mg/dL High 70-99 [facility] Serum or plasma alanine craig otransferase (ALT) measurementon 06-27-2024 ALT [Catalytic activity/Vol] 20 U/L <47 [facility] Serum or plasma albumin megha urement (mass/volume)on 06-27-2024 Albumin [Mass/Vol] 3.8 g/dL 3.5-5.0 [facility] Serum or plasma albumin/glob ulin mass ratioon 06-27-2024 Albumin/Globulin [Mass ratio] 1.3 {ratio} 0.9-2.4 [facility] Serum or plasma alkaline sal sphatase measurementon 06-27-2024 ALP [Catalytic activity/Vol] 188 U/L High 40-129 [facility] Serum or plasma calcium megha urement (mass/volume)on 06-27-2024 Calcium [Mass/Vol] 9.5 mg/dL 7.6-11.0 [facility] Serum or plasma urea nitroge n measurement (mass/volume)on 06-27-2024 Urea nitrogen [Mass/Vol] 23 mg/dL High 4-19 [facility] Sodium levelon 06-27-2024 Sodium [Moles/Vol] 140 mmol/L 133-145 [facility] Total cell counton Cells counted Molgen (Bld/Tiss) [#] 100 MANUAL DIFF [facility] Total proteinon 06-27-2024 Protein [Mass/Vol] 6.7 g/dL 5.9-8.4 [facility] White blood cell (WBC) count on 06-27-2024 WBC (Bld) [#/Vol] 6.6 10*3/uL 4.4-11.0 [facility] Hepatitis C,RNA PCR Viral Lo police guard 06-25-2024 HCV log 10 TNP Normal . [facility] Comment on above: Performed By: #### L 3890.6102, L7000.7000, L501.5200, L501.4700, L100.0100, L501.2300, L3890.4000, L3410.9992, L500.4050 ####[facility] [address] [place], [place], [address] HCV QT RNA PCR Not detected Normal . [facility] Comment on above: Performed By: #### L 3890.6102, L7000.7000, L501.5200, L501.4700, L100.0100, L501.2300, L3890.4000, L3410.9992, L500.4050 ####[facility] [address] [place], [place], [address] TEST INFO: Comment Normal . [facility] Comment on above: Result Comment: The quantitative range of this assay is 15 IU/mL to 100million IU/mL.Performed at: [address] [id number] Director: Sergio Machado MD, Phone: [phone] Performed By: #### L 3890.6102, L7000.7000, L501.5200, L501.4700, L100.0100, L501.2300, L3890.4000, L3410.9992, L500.4050 ####[facility] [address] [place], [place], [id number] CBC W/Diff, Automatedon - PATH REV Reviewed Normal [facility] Comment on above: Result Comment: ADEQ UATE LEUKOCYTES WITH OCCASIONAL IMMATURE GRANULOCYTES.MACROCYTIC NORMOCHROMIC ANEMIA WITH MILD ANISOCYTOSIS.ADEQUATE PLATELETS.Eulalia Bautista MD 06/24/2024 AMENDED REPORT 06/24/24 1431 PATH REV previously reported as: June Performed By: #### L 3890.6102, L7000.7000, L501.5200, L501.4700, L100.0100, L501.2300, L3890.4000, L3410.9992, L500.4050 ####[facility] [address] [place], [place], [address] Bilirubin, Directon 06-24-19 25 Bilirubin.direct [Mass/Vol] 0.33 mg/dL High 0.00-0.30 [facility] Comment on above: Performed By: #### L 3890.6102, L7000.7000, L501.5200, L501.4700, L100.0100, L501.2300, L3890.4000, L3410.9992, L500.4050 ####[facility] [address] [place], [address] Blood basophils/100 leukocyt eson 06-23-2024 Basophils/100 WBC (Bld) 1 % 0-1 [facility] Blood promyelocytes/100 leuk ocyteson 06-23-2024 Promyelocytes/100 WBC (Bld) 1 % High 0-0 [facility] Comprehensive Metabolic Prof ilon 06-23-2024 Albumin [Mass/Vol] 3.6 g/dL Normal 3.5-5.0 [facility] Comment on above: Performed By: #### L 3890.6102, L7000.7000, L501.5200, L501.4700, L100.0100, L501.2300, L3890.4000, L3410.9992, L500.4050 ####[facility] [address] [place], [place], [phone](613) Albumin/Globulin [Mass ratio] 1.3 {ratio} Normal 0.9-2.4 [facility] Comment on above: Performed By: #### L 3890.6102, L7000.7000, L501.5200, L501.4700, L100.0100, L501.2300, L3890.4000, L3410.9992, L500.4050 ####[facility] [address] [place], [address] ALK PHOS 190 U/L High 40-129 [facility] Comment on above: Performed By: #### L 3890.6102, L7000.7000, L501.5200, L501.4700, L100.0100, L501.2300, L3890.4000, L3410.9992, L500.4050 ####[facility] [address] [place], [address](219) ALT [Catalytic activity/Vol] 20 U/L Normal <=46 [facility] Comment on above: Performed By: #### L 3890.6102, L7000.7000, L501.5200, L501.4700, L100.0100, L501.2300, L3890.4000, L3410.9992, L500.4050 ####[facility] [address] [place], [place], [phone](887) AST [Catalytic activity/Vol] 21 U/L Normal <=37 [facility] Comment on above: Performed By: #### L 3890.6102, L7000.7000, L501.5200, L501.4700, L100.0100, L501.2300, L3890.4000, L3410.9992, L500.4050 ####[facility] [address] [place], [place], [phone] Bilirubin [Mass/Vol] 0.51 mg/dL Normal 0.00-1.30 [facility] Comment on above: Performed By: #### L 3890.6102, L7000.7000, L501.5200, L501.4700, L100.0100, L501.2300, L3890.4000, L3410.9992, L500.4050 ####[facility] [address] [place], [place], [id number] BUN/CRE 25.6 RATIO High 10-20 [facility] Comment on above: Performed By: #### L 3890.6102, L7000.7000, L501.5200, L501.4700, L100.0100, L501.2300, L3890.4000, L3410.9992, L500.4050 ####[facility] [address] [place], [place], [phone](187) Calcium [Mass/Vol] 9.2 mg/dL Normal 7.6-11.0 [facility] Comment on above: Performed By: #### L 3890.6102, L7000.7000, L501.5200, L501.4700, L100.0100, L501.2300, L3890.4000, L3410.9992, L500.4050 ####[facility] [address] [place], [place], [phone](840) Chloride [Moles/Vol] 101 mmol/L Normal 98-108 [facility] Comment on above: Performed By: #### L 3890.6102, L7000.7000, L501.5200, L501.4700, L100.0100, L501.2300, L3890.4000, L3410.9992, L500.4050 ####[facility] [address] [place], [place], [address] CO2 [Moles/Vol] 23.5 mmol/L Normal 21.0-32.0 [facility] Comment on above: Performed By: #### L 3890.6102, L7000.7000, L501.5200, L501.4700, L100.0100, L501.2300, L3890.4000, L3410.9992, L500.4050 ####[facility] [address] [place], [place], [phone] Creatinine [Mass/Vol] 0.89 mg/dL Normal 0.70-1.20 [facility] Comment on above: Performed By: #### L 3890.6102, L7000.7000, L501.5200, L501.4700, L100.0100, L501.2300, L3890.4000, L3410.9992, L500.4050 ####[facility] [address] [place], [address] GAP 12 Normal 5-15 [facility] Comment on above: Performed By: #### L 3890.6102, L7000.7000, L501.5200, L501.4700, L100.0100, L501.2300, L3890.4000, L3410.9992, L500.4050 ####[facility] [address] [place], [place], [phone](664) GFR/1.73 sq M.predicted among non-blacks MDRD (S/P/Bld) [Vol rate/Area] 99 mL/min/{1.73_m2} Normal >60 [facility] Comment on above: Result Comment: mL/m in/1.73m2 CKD-EPI Creatinine Equation (2020) Performed By: #### L 3890.6102, L7000.7000, L501.5200, L501.4700, L100.0100, L501.2300, L3890.4000, L3410.9992, L500.4050 ####[facility] [address] [place], [place], [phone](507) Globulin (S) [Mass/Vol] 2.8 g/dL Normal 2.2-4.2 [facility] Comment on above: Performed By: #### L 3890.6102, L7000.7000, L501.5200, L501.4700, L100.0100, L501.2300, L3890.4000, L3410.9992, L500.4050 ####[facility] [address] [place], [place], [phone](653) Glucose [Mass/Vol] 111 mg/dL High 70-99 [facility] Comment on above: Performed By: #### L 3890.6102, L7000.7000, L501.5200, L501.4700, L100.0100, L501.2300, L3890.4000, L3410.9992, L500.4050 ####[facility] [address] [place], [place], [phone](359) Potassium [Moles/Vol] 4.4 mmol/L Normal 3.3-5.1 [facility] Comment on above: Performed By: #### L 3890.6102, L7000.7000, L501.5200, L501.4700, L100.0100, L501.2300, L3890.4000, L3410.9992, L500.4050 ####[facility] [address] [place], [address] Sodium [Moles/Vol] 137 mmol/L Normal 133-145 [facility] Comment on above: Performed By: #### L 3890.6102, L7000.7000, L501.5200, L501.4700, L100.0100, L501.2300, L3890.4000, L3410.9992, L500.4050 ####[facility] [address] [place], [place], [phone] T PROT 6.4 g/dL Normal 5.9-8.4 [facility] Comment on above: Performed By: #### L 3890.6102, L7000.7000, L501.5200, L501.4700, L100.0100, L501.2300, L3890.4000, L3410.9992, L500.4050 ####[facility] [address] [place], [place], [phone] Urea nitrogen [Mass/Vol] 23 mg/dL High 4-19 [facility] Comment on above: Performed By: #### L 3890.6102, L7000.7000, L501.5200, L501.4700, L100.0100, L501.2300, L3890.4000, L3410.9992, L500.4050 ####[facility] [address] [place], [address] L3890.6102on 06-23-2024 HEP B Surf Ag Non-Reactive Normal Nonreactive [facility] Comment on above: Result Comment: Reac tive: Presumptive evidence of HBV. Repeatedly reactivesamples must be confirmed using a neutralization test([employer] HBsAg Confirmatory Test)Non-Reactive: HBsAg not detected; does not exclude thepossibility of exposure to HBV Performed By: #### L 3890.6102, L7000.7000, L501.5200, L501.4700, L100.0100, L501.2300, L3890.4000, L3410.9992, L500.4050 ####[facility] [address] [place], [place], [id number] Laboratory - Microbiology an d Antimicrobial susceptibilityon 06-23-2024 HBV surface Ag Ql (S) Non-Reactive Nonreactive [facility] Comment on above: Reactive: Presumptiv e evidence of HBV. Repeatedly reactive samples must be confirmed using a neutralization test ([employer] HBsAg Confirmatory Test)Non-Reactive: HBsAg not detected; does not exclude the possibility of exposure to HBV Magnesiumon 06-23-2024 Magnesium [Mass/Vol] 1.9 mg/dL Normal 1.5-2.2 [facility] Comment on above: Performed By: #### L 3890.6102, L7000.7000, L501.5200, L501.4700, L100.0100, L501.2300, L3890.4000, L3410.9992, L500.4050 ####[facility] [address] [facility] [place], [place], [phone] Myelocyte %on 06-23-2024 Myelocytes/100 WBC (Bld) 1 % High 0-0 [facility] No Panel Informationon 06-23 Addendum Document Comment . [facility] Comment on above: The quantitative ran ge of this assay is 15 IU/mL to 100million IU/mL.Performed at: [address] [id number] Director: Sergio Machado MD, Phone: [phone] Phosphoruson 06-23-2024 Phosphate [Mass/Vol] 3.4 mg/dL Normal 2.7-4.5 [facility] Comment on above: Performed By: #### L 3890.6102, L7000.7000, L501.5200, L501.4700, L100.0100, L501.2300, L3890.4000, L3410.9992, L500.4050 ####[facility] [address] [place], [address] Plasma HIV 1 RNA viral load by probe and target amplification method (log number/voluon 06-23-2024 HIV 1 RNA JACKY+probe [Log #/Vol] TNP [facility] Comment on above: Test not performedRe sult Units: gmc34houn/mLUnable to calculate result since non-numeric resultobtained for component test.Performed at: [address] [id number] Director: Sergio Machado MD, Phone: [phone] Review by pathologiston 06-01 Pathologist review Deandre (Unsp spec) [Interp] Reviewed [facility] Comment on above: Previous reported re sult: Patricia delgado Edited by: SAMIR on 06/24/24:1431ADEQUATE LEUKOCYTES WITH OCCASIONAL IMMATURE GRANULOCYTES.MACROCYTIC NORMOCHROMIC ANEMIA WITH MILD ANISOCYTOSIS.ADEQUATE PLATELETS.Eulalia Bautista MD 06/24/2024 AMENDED REPORT 06/24/24 1431 PATH REV previously reported as: Patricia delgado Serum or plasma hepatitis C virus RNA measurement by probe and target amplification mon 06-23-2024 HCV RNA JACKY+probe Qn Not detected . [facility] L501.5101on 06-22-2024 GGTP 25 IU/L Normal 0-65 [facility] Comment on above: Order Comment: Test( s) 625400-Lxelcvcjfa (FK506), Bloodwas developed and its performance characteristicsdetermined by [facility]. It has not been cleared or approvedby the Food and Drug Administration. Result Comment: Perf ormed at: [address] [id number] Director: Sergio Machado MD, Phone: [phone] at: [address] [id number] Director: Red Graham PhD, Phone: [phone] Performed By: #### L 500.4050, L501.5101, L3380.1000, L501.4700, L100.0100, L501.5200, L501.2300 ####[facility] [id number] [place], [address] Tacrolimus (Prograf)on 06-22 Tacrolimus (Bld) [Mass/Vol] 5.8 ng/mL Normal 5.0-20.0 [facility] Comment on above: Order Comment: Test( s) [id number] (FK506), Bloodwas developed and its performance characteristicsdetermined by [facility]. It has not been cleared or approvedby the Food and Drug Administration. Result Comment: Samia et steady state trough concentration forTacrolimus varies based on type of organ transplantimmunosuppressive protocol and other patient specificfactors. Tacrolimus trough concentrations should beinterpreted in conjunction with clinical assessmentsof rejection and tolerability. Values obtained withdifferent assay methods cannot be used interchangeablydue to differences in assay methods and cross-reactivtywith metabolites, nor should correction factors beapplied. Therefore, consistent use of one assay forindividual patients is recommended.Detection Limit = 0.5 ng/mLPerformed by LC-MS/MS technology Please note reference interval change Performed By: #### L 500.4050, L501.5101, L3380.1000, L501.4700, L100.0100, L501.5200, L501.2300 ####[facility] [address] [place], [address] Automated lymphocyte count a s percentage of total leukocyteson 06-20-2024 Lymphocytes/100 WBC Auto (Unsp spec) 11.1 % Low 19-41 [facility] Basophil percentageon 2024 Basophils/100 WBC (Bld) 0.9 % 0-1 [facility] Bilirubin, Directon 06-21-19 25 Bilirubin.direct [Mass/Vol] 0.35 mg/dL High 0.00-0.30 [facility] Comment on above: Performed By: #### L 500.4050, L501.5101, L3380.1000, L501.4700, L100.0100, L501.5200, L501.2300 ####[facility] [address] [place], [address] CBC W/Diff, Automatedon 04- Absolute Lymph 0.86 X10 3/uL Normal 0.83-4.51 [facility] Comment on above: Performed By: #### L 500.4050, L501.5101, L3380.1000, L501.4700, L100.0100, L501.5200, L501.2300 ####[facility] [address] [place], [address] Absolute Neut 6.2 X10 3/uL Normal 2.0-7.7 [facility] Comment on above: Performed By: #### L 500.4050, L501.5101, L3380.1000, L501.4700, L100.0100, L501.5200, L501.2300 ####[facility] [address] [place], [address] Basophils/100 WBC (Bld) 0.9 % Normal 0-1 [facility] Comment on above: Performed By: #### L 500.4050, L501.5101, L3380.1000, L501.4700, L100.0100, L501.5200, L501.2300 ####[facility] [address] [place], [address] Eosinophils/100 WBC (Bld) 0.1 % Normal 0-5 [facility] Comment on above: Performed By: #### L 500.4050, L501.5101, L3380.1000, L501.4700, L100.0100, L501.5200, L501.2300 ####[facility] [address] [place], [address] Erythrocyte distribution width (RBC) [Ratio] 16.7 % High 11.6-14.6 [facility] Comment on above: Performed By: #### L 500.4050, L501.5101, L3380.1000, L501.4700, L100.0100, L501.5200, L501.2300 ####[facility] [address] [place], [address] Hematocrit (Bld) [Volume fraction] 31.0 % Low 40-54 [facility] Comment on above: Performed By: #### L 500.4050, L501.5101, L3380.1000, L501.4700, L100.0100, L501.5200, L501.2300 ####[facility] [address] [place], [address] Hemoglobin (Bld) [Mass/Vol] 10.1 g/dL Low 13.0-16.5 [facility] Comment on above: Performed By: #### L 500.4050, L501.5101, L3380.1000, L501.4700, L100.0100, L501.5200, L501.2300 ####[facility] [address] [place], [address] IG% 4.100 High 0.0-0.9 [facility] Comment on above: Result Comment: IG% - Immature Granulocytes (promyelocytes, myelocytes andmetamyelocytes) > 1% indicates that a LEFT SHIFT is Present. Performed By: #### L 500.4050, L501.5101, L3380.1000, L501.4700, L100.0100, L501.5200, L501.2300 ####[facility] [address] [place], [address] Lymphocytes/100 WBC (Bld) 11.1 % Low 19-41 [facility] Comment on above: Performed By: #### L 500.4050, L501.5101, L3380.1000, L501.4700, L100.0100, L501.5200, L501.2300 ####[facility] [address] [place], [address] MCH (RBC) [Entitic mass] 31.2 pg Normal 27.0-32.0 [facility] Comment on above: Performed By: #### L 500.4050, L501.5101, L3380.1000, L501.4700, L100.0100, L501.5200, L501.2300 ####[facility] [address] [place], [address] MCHC (RBC) [Mass/Vol] 32.6 g/dL Normal 32-36 [facility] Comment on above: Performed By: #### L 500.4050, L501.5101, L3380.1000, L501.4700, L100.0100, L501.5200, L501.2300 ####[facility] [address] [place], [address] MCV (RBC) [Entitic vol] 95.7 fL High 80-94 [facility] Comment on above: Performed By: #### L 500.4050, L501.5101, L3380.1000, L501.4700, L100.0100, L501.5200, L501.2300 ####[facility] [address] [place], [address] Monocytes/100 WBC (Bld) 3.6 % Normal 0-10 [facility] Comment on above: Performed By: #### L 500.4050, L501.5101, L3380.1000, L501.4700, L100.0100, L501.5200, L501.2300 ####[facility] [address] [place], [address] Neutrophils/100 WBC (Bld) 80.2 % High 47-70 [facility] Comment on above: Performed By: #### L 500.4050, L501.5101, L3380.1000, L501.4700, L100.0100, L501.5200, L501.2300 ####[facility] [address] [place], [address] Nucleated RBC (Bld) [#/Vol] 0 10*3/uL Normal 0-5 [facility] Comment on above: Performed By: #### L 500.4050, L501.5101, L3380.1000, L501.4700, L100.0100, L501.5200, L501.2300 ####[facility] [address] [place], [address] Platelet mean volume (Bld) [Entitic vol] 10.2 fL Normal 6.2-12.0 [facility] Comment on above: Performed By: #### L 500.4050, L501.5101, L3380.1000, L501.4700, L100.0100, L501.5200, L501.2300 ####[facility] [address] [place], [address] Platelets (Bld) [#/Vol] 516 10*3/uL High 150-450 [facility] Comment on above: Performed By: #### L 500.4050, L501.5101, L3380.1000, L501.4700, L100.0100, L501.5200, L501.2300 ####[facility] [address] [place], [address] RBC (Bld) [#/Vol] 3.24 10*6/uL Low 4.6-6.2 [facility] Comment on above: Performed By: #### L 500.4050, L501.5101, L3380.1000, L501.4700, L100.0100, L501.5200, L501.2300 ####[facility] [address] [place], [address] RDW SD 58.4 fl High 35.1-43.9 [facility] Comment on above: Performed By: #### L 500.4050, L501.5101, L3380.1000, L501.4700, L100.0100, L501.5200, L501.2300 ####[facility] [address] [place], [address] WBC (Bld) [#/Vol] 7.8 10*3/uL Normal 4.4-11.0 [facility] Comment on above: Performed By: #### L 500.4050, L501.5101, L3380.1000, L501.4700, L100.0100, L501.5200, L501.2300 ####[facility] [address] [place], [address] Comprehensive Metabolic Prof [facility] 06-20-2024 Albumin [Mass/Vol] 3.6 g/dL Normal 3.5-5.0 [facility] Comment on above: Performed By: #### L 500.4050, L501.5101, L3380.1000, L501.4700, L100.0100, L501.5200, L501.2300 ####[facility] [address] [place], [address] Albumin/Globulin [Mass ratio] 1.3 {ratio} Normal 0.9-2.4 [facility] Comment on above: Performed By: #### L 500.4050, L501.5101, L3380.1000, L501.4700, L100.0100, L501.5200, L501.2300 ####[facility] [address] [place], [address] ALK PHOS 196 U/L High 40-129 [facility] Comment on above: Performed By: #### L 500.4050, L501.5101, L3380.1000, L501.4700, L100.0100, L501.5200, L501.2300 ####[facility] [address] [place], [address] ALT [Catalytic activity/Vol] 25 U/L Normal <=46 [facility] Comment on above: Performed By: #### L 500.4050, L501.5101, L3380.1000, L501.4700, L100.0100, L501.5200, L501.2300 ####[facility] [address] [place], [address] AST [Catalytic activity/Vol] 22 U/L Normal <=37 [facility] Comment on above: Performed By: #### L 500.4050, L501.5101, L3380.1000, L501.4700, L100.0100, L501.5200, L501.2300 ####[facility] [address] [place], [address] Bilirubin [Mass/Vol] 0.52 mg/dL Normal 0.00-1.30 [facility] Comment on above: Performed By: #### L 500.4050, L501.5101, L3380.1000, L501.4700, L100.0100, L501.5200, L501.2300 ####[facility] [address] [place], [address] BUN/CRE 25.0 RATIO High 10-20 [facility] Comment on above: Performed By: #### L 500.4050, L501.5101, L3380.1000, L501.4700, L100.0100, L501.5200, L501.2300 ####[facility] [address] [place], [address] Calcium [Mass/Vol] 9.2 mg/dL Normal 7.6-11.0 [facility] Comment on above: Performed By: #### L 500.4050, L501.5101, L3380.1000, L501.4700, L100.0100, L501.5200, L501.2300 ####[facility] [address] [place], [address] Chloride [Moles/Vol] 101 mmol/L Normal 98-108 [facility] Comment on above: Performed By: #### L 500.4050, L501.5101, L3380.1000, L501.4700, L100.0100, L501.5200, L501.2300 ####[facility] [address] [place], [address] CO2 [Moles/Vol] 28.0 mmol/L Normal 21.0-32.0 [facility] Comment on above: Performed By: #### L 500.4050, L501.5101, L3380.1000, L501.4700, L100.0100, L501.5200, L501.2300 ####[facility] [address] [place], [address] Creatinine [Mass/Vol] 1.03 mg/dL Normal 0.70-1.20 [facility] Comment on above: Performed By: #### L 500.4050, L501.5101, L3380.1000, L501.4700, L100.0100, L501.5200, L501.2300 ####[facility] [address] [place], [address] GAP 9 Normal 5-15 [facility] Comment on above: Performed By: #### L 500.4050, L501.5101, L3380.1000, L501.4700, L100.0100, L501.5200, L501.2300 ####[facility] [address] [place], [address] GFR/1.73 sq M.predicted among non-blacks MDRD (S/P/Bld) [Vol rate/Area] 84 mL/min/{1.73_m2} Normal >60 [facility] Comment on above: Result Comment: mL/m in/1.73m2 CKD-EPI Creatinine Equation (2020) Performed By: #### L 500.4050, L501.5101, L3380.1000, L501.4700, L100.0100, L501.5200, L501.2300 ####[facility] [address] [place], [address] Globulin (S) [Mass/Vol] 2.7 g/dL Normal 2.2-4.2 [facility] Comment on above: Performed By: #### L 500.4050, L501.5101, L3380.1000, L501.4700, L100.0100, L501.5200, L501.2300 ####[facility] [address] [place], [address] Glucose [Mass/Vol] 97 mg/dL Normal 70-99 [facility] Comment on above: Performed By: #### L 500.4050, L501.5101, L3380.1000, L501.4700, L100.0100, L501.5200, L501.2300 ####[facility] [address] [place], [address] Potassium [Moles/Vol] 4.4 mmol/L Normal 3.3-5.1 [facility] Comment on above: Performed By: #### L 500.4050, L501.5101, L3380.1000, L501.4700, L100.0100, L501.5200, L501.2300 ####[facility] [address] [place], [address] Sodium [Moles/Vol] 137 mmol/L Normal 133-145 [facility] Comment on above: Performed By: #### L 500.4050, L501.5101, L3380.1000, L501.4700, L100.0100, L501.5200, L501.2300 ####[facility] [address] [place], [address] T PROT 6.2 g/dL Normal 5.9-8.4 [facility] Comment on above: Performed By: #### L 500.4050, L501.5101, L3380.1000, L501.4700, L100.0100, L501.5200, L501.2300 ####[facility] [address] [place], [place], [address] Urea nitrogen [Mass/Vol] 26 mg/dL High 4-19 [facility] Comment on above: Performed By: #### L 500.4050, L501.5101, L3380.1000, L501.4700, L100.0100, L501.5200, L501.2300 ####[facility] [address] [place], [place], [address] Eosinophil percentageon 06-01 Eosinophils/100 WBC (Bld) 0.1 % 0-5 [facility] Immature granulocytes/100 WB C Auto (Bld)on 06-20-2024 Immature granulocytes/100 WBC (Bld) 4.100 % High 0.0-0.9 [facility] Comment on above: IG% - Immature Granu locytes (promyelocytes, myelocytes and metamyelocytes) > 1% indicates that a LEFT SHIFT is Present. Magnesiumon 06-20-2024 Magnesium [Mass/Vol] 1.8 mg/dL Normal 1.5-2.2 [facility] Comment on above: Performed By: #### L 500.4050, L501.5101, L3380.1000, L501.4700, L100.0100, L501.5200, L501.2300 ####[facility] [address] [place], [address] Monocyte percentageon 2024 Monocytes/100 WBC (Bld) 3.6 % 0-10 [facility] Nucleated red blood cell per centageon 06-20-2024 Nucleated RBC/100 WBC (Bld) [Ratio] 0 % 0-5 [facility] Phosphoruson 06-20-2024 Phosphate [Mass/Vol] 3.2 mg/dL Normal 2.7-4.5 [facility] Comment on above: Performed By: #### L 500.4050, L501.5101, L3380.1000, L501.4700, L100.0100, L501.5200, L501.2300 ####[facility] [address] [place], [address] L501.5101on 06-19-2024 GGTP 29 IU/L Normal 0-65 [facility] Comment on above: Order Comment: Test( s) [id number] (FK506), Bloodwas developed and its performance characteristicsdetermined by [facility]. It has not been cleared or approvedby the Food and Drug Administration. Result Comment: Perf ormed at: [facility] [address] [id number] Director: Sergio Machado MD, Phone: [phone] at: [facility] [address] [id number] Director: Red Graham PhD, Phone: [phone] Performed By: #### L 501.4700, L500.4050, L3380.1000, L501.2300, L100.0100, L501.5200, L501.5101 ####[facility] [address] [place], [address] Tacrolimus (Prograf)on 06-19 Tacrolimus (Bld) [Mass/Vol] 4.1 ng/mL Low 5.0-20.0 [facility] Comment on above: Order Comment: Test( s) [id number] (FK506), Bloodwas developed and its performance characteristicsdetermined by [facility]. It has not been cleared or approvedby the Food and Drug Administration. Result Comment: Targ et steady state trough concentration forTacrolimus varies based on type of organ transplantimmunosuppressive protocol and other patient specificfactors. Tacrolimus trough concentrations should beinterpreted in conjunction with clinical assessmentsof rejection and tolerability. Values obtained withdifferent assay methods cannot be used interchangeablydue to differences in assay methods and cross-reactivtywith metabolites, nor should correction factors beapplied. Therefore, consistent use of one assay forindividual patients is recommended.Detection Limit = 0.5 ng/mLPerformed by LC-MS/MS technology Please note reference interval change Performed By: #### L 501.4700, L500.4050, L3380.1000, L501.2300, L100.0100, L501.5200, L501.5101 ####[facility] [address] [place], [address] [facility] Misc.on 06-17-2024 [facility] Misc. 4 COMMENT Normal . [facility] Comment on above: Order Comment: 11298 4PETH EDTA WB RF Result Comment: Test Ordered: 218285 Phosphatidylethanol (PEth)PHOSPHATIDYLETHANOL Negative MX Reference Range: .Phosphatidylethanol (PEth) Negative ng/mL MX Reference Range: .Analyzed compound: PEth 16:0/18:1. 4-nkkfsobdx-5-mvxghn-cu-spmrkrn-3-phosphoethanol.Analysis performed by Liquid Chromatography withTandem Mass Spectrometry (LC/MS/MS).Detection limit: 20 ng/mLPEth levels in excess of 20 ng/mL are considered evidenceof moderate to heavy ethanol consumption. However,the [facility] (CSAT) advisescaution in interpretation and use of biomarkers aloneto assess alcohol use. Results should be interpretedin the context of all available clinical and behavioralinformation.Reference: Substance Abuse and Mental Health Services Administration (2012). The Role of Biomarkers in the Treatment of Alcohol Use Disorders, 2012 Revision. Advisory, Volume 11, Issue 2.This test was developed and its performance characteristicsdetermined by [facility]. It has not been cleared or approvedby the Food and Drug Administration.Performed at: [facility] [address] [id number] Director: Clau Abdalla [facility], Phone: [phone] at: [facility] [id number] Director: Red Graham PhD, Phone: [phone] Performed By: #### L 3410.9998, L501.5101, L500.4050, L501.2300, L3380.1000, L501.5200, L501.4700, L100.0100 ####[facility] [address] [place], [place], [id number] Bilirubin, Directon 06-17-19 Bilirubin.direct [Mass/Vol] 0.45 mg/dL High 0.00-0.30 [facility] Comment on above: Performed By: #### L 501.4700, L500.4050, L3380.1000, L501.2300, L100.0100, L501.5200, L501.5101 ####[facility] [address] [place], [place], [address] CBC W/Diff, Automatedon 05-31 Absolute Lymph 0.72 X10 3/uL Low 0.83-4.51 [facility] Comment on above: Performed By: #### L 501.4700, L500.4050, L3380.1000, L501.2300, L100.0100, L501.5200, L501.5101 ####[facility] [address] [place], [place], [id number]) Absolute Neut 6.5 X10 3/uL Normal 2.0-7.7 [facility] Comment on above: Performed By: #### L 501.4700, L500.4050, L3380.1000, L501.2300, L100.0100, L501.5200, L501.5101 ####[facility] [address] [place], [address] Basophils/100 WBC (Bld) 0.8 % Normal 0-1 [facility] Comment on above: Performed By: #### L 501.4700, L500.4050, L3380.1000, L501.2300, L100.0100, L501.5200, L501.5101 ####[facility] [address] [place], [address] Eosinophils/100 WBC (Bld) 0.1 % Normal 0-5 [facility] Comment on above: Performed By: #### L 501.4700, L500.4050, L3380.1000, L501.2300, L100.0100, L501.5200, L501.5101 ####[facility] [address] [place], [address] Erythrocyte distribution width (RBC) [Ratio] 16.2 % High 11.6-14.6 [facility] Comment on above: Performed By: #### L 501.4700, L500.4050, L3380.1000, L501.2300, L100.0100, L501.5200, L501.5101 ####[facility] [address] [place], [address] Hematocrit (Bld) [Volume fraction] 31.5 % Low 40-54 [facility] Comment on above: Performed By: #### L 501.4700, L500.4050, L3380.1000, L501.2300, L100.0100, L501.5200, L501.5101 ####[facility] [address] [place], [address] Hemoglobin (Bld) [Mass/Vol] 10.3 g/dL Low 13.0-16.5 [facility] Comment on above: Performed By: #### L 501.4700, L500.4050, L3380.1000, L501.2300, L100.0100, L501.5200, L501.5101 ####[facility] [address] [place], [address] IG% 1.900 High 0.0-0.9 [facility] Comment on above: Result Comment: IG% - Immature Granulocytes (promyelocytes, myelocytes andmetamyelocytes) > 1% indicates that a LEFT SHIFT is Present. Performed By: #### L 501.4700, L500.4050, L3380.1000, L501.2300, L100.0100, L501.5200, L501.5101 ####[facility] [address] [place], [address] Lymphocytes/100 WBC (Bld) 9.3 % Low 19-41 [facility] Comment on above: Performed By: #### L 501.4700, L500.4050, L3380.1000, L501.2300, L100.0100, L501.5200, L501.5101 ####[facility] [address] [place], [address] MCH (RBC) [Entitic mass] 31.2 pg Normal 27.0-32.0 [facility] Comment on above: Performed By: #### L 501.4700, L500.4050, L3380.1000, L501.2300, L100.0100, L501.5200, L501.5101 ####[facility] [address] [place], [address] MCHC (RBC) [Mass/Vol] 32.7 g/dL Normal 32-36 [facility] Comment on above: Performed By: #### L 501.4700, L500.4050, L3380.1000, L501.2300, L100.0100, L501.5200, L501.5101 ####[facility] [address] [place], [address] MCV (RBC) [Entitic vol] 95.5 fL High 80-94 [facility] Comment on above: Performed By: #### L 501.4700, L500.4050, L3380.1000, L501.2300, L100.0100, L501.5200, L501.5101 ####[facility] [address] [place], [address] Monocytes/100 WBC (Bld) 5.0 % Normal 0-10 [facility] Comment on above: Performed By: #### L 501.4700, L500.4050, L3380.1000, L501.2300, L100.0100, L501.5200, L501.5101 ####[facility] [address] [place], [address] Neutrophils/100 WBC (Bld) 82.9 % High 47-70 [facility] Comment on above: Performed By: #### L 501.4700, L500.4050, L3380.1000, L501.2300, L100.0100, L501.5200, L501.5101 ####[facility] [address] [place], [address] Nucleated RBC (Bld) [#/Vol] 0 10*3/uL Normal 0-5 [facility] Comment on above: Performed By: #### L 501.4700, L500.4050, L3380.1000, L501.2300, L100.0100, L501.5200, L501.5101 ####[facility] [address] [place], [address] Platelet mean volume (Bld) [Entitic vol] 10.3 fL Normal 6.2-12.0 [facility] Comment on above: Performed By: #### L 501.4700, L500.4050, L3380.1000, L501.2300, L100.0100, L501.5200, L501.5101 ####[facility] [address] [place], [address] Platelets (Bld) [#/Vol] 621 10*3/uL High 150-450 [facility] Comment on above: Performed By: #### L 501.4700, L500.4050, L3380.1000, L501.2300, L100.0100, L501.5200, L501.5101 ####[facility] [address] [place], [address] RBC (Bld) [#/Vol] 3.30 10*6/uL Low 4.6-6.2 [facility] Comment on above: Performed By: #### L 501.4700, L500.4050, L3380.1000, L501.2300, L100.0100, L501.5200, L501.5101 ####[facility] [address] [place], [address] RDW SD 56.1 fl High 35.1-43.9 [facility] Comment on above: Performed By: #### L 501.4700, L500.4050, L3380.1000, L501.2300, L100.0100, L501.5200, L501.5101 ####[facility] [address] [place], [address] WBC (Bld) [#/Vol] 7.8 10*3/uL Normal 4.4-11.0 [facility] Comment on above: Performed By: #### L 501.4700, L500.4050, L3380.1000, L501.2300, L100.0100, L501.5200, L501.5101 ####[facility] [address] [place], [address] Comprehensive Metabolic Prof ilon 06-16-2024 Albumin [Mass/Vol] 3.3 g/dL Low 3.5-5.0 [facility] Comment on above: Performed By: #### L 501.4700, L500.4050, L3380.1000, L501.2300, L100.0100, L501.5200, L501.5101 ####[facility] [address] [place], [address] Albumin/Globulin [Mass ratio] 1.3 {ratio} Normal 0.9-2.4 [facility] Comment on above: Performed By: #### L 501.4700, L500.4050, L3380.1000, L501.2300, L100.0100, L501.5200, L501.5101 ####[facility] [address] [place], [address] ALK PHOS 212 U/L High 40-129 [facility] Comment on above: Performed By: #### L 501.4700, L500.4050, L3380.1000, L501.2300, L100.0100, L501.5200, L501.5101 ####[facility] [address] [place], [address] ALT [Catalytic activity/Vol] 23 U/L Normal <=46 [facility] Comment on above: Performed By: #### L 501.4700, L500.4050, L3380.1000, L501.2300, L100.0100, L501.5200, L501.5101 ####[facility] [address] [place], [address] AST [Catalytic activity/Vol] 24 U/L Normal <=37 [facility] Comment on above: Performed By: #### L 501.4700, L500.4050, L3380.1000, L501.2300, L100.0100, L501.5200, L501.5101 ####[facility] [address] [place], [address] Bilirubin [Mass/Vol] 0.64 mg/dL Normal 0.00-1.30 [facility] Comment on above: Performed By: #### L 501.4700, L500.4050, L3380.1000, L501.2300, L100.0100, L501.5200, L501.5101 ####[facility] [address] [place], [address] BUN/CRE 24.6 RATIO High 10-20 [facility] Comment on above: Performed By: #### L 501.4700, L500.4050, L3380.1000, L501.2300, L100.0100, L501.5200, L501.5101 ####[facility] [address] [place], [address] Calcium [Mass/Vol] 8.8 mg/dL Normal 7.6-11.0 [facility] Comment on above: Performed By: #### L 501.4700, L500.4050, L3380.1000, L501.2300, L100.0100, L501.5200, L501.5101 ####[facility] [address] [place], [address] Chloride [Moles/Vol] 100 mmol/L Normal 98-108 [facility] Comment on above: Performed By: #### L 501.4700, L500.4050, L3380.1000, L501.2300, L100.0100, L501.5200, L501.5101 ####[facility] [address] [place], [address] CO2 [Moles/Vol] 26.7 mmol/L Normal 21.0-32.0 [facility] Comment on above: Performed By: #### L 501.4700, L500.4050, L3380.1000, L501.2300, L100.0100, L501.5200, L501.5101 ####[facility] [address] [place], [address] Creatinine [Mass/Vol] 0.86 mg/dL Normal 0.70-1.20 [facility] Comment on above: Performed By: #### L 501.4700, L500.4050, L3380.1000, L501.2300, L100.0100, L501.5200, L501.5101 ####[facility] [address] [place], [address] GAP 8 Normal 5-15 [facility] Comment on above: Performed By: #### L 501.4700, L500.4050, L3380.1000, L501.2300, L100.0100, L501.5200, L501.5101 ####[facility] [address] [place], [address] GFR/1.73 sq M.predicted among non-blacks MDRD (S/P/Bld) [Vol rate/Area] 100 mL/min/{1.73_m2} Normal >60 [facility] Comment on above: Result Comment: mL/m in/1.73m2 CKD-EPI Creatinine Equation (2020) Performed By: #### L 501.4700, L500.4050, L3380.1000, L501.2300, L100.0100, L501.5200, L501.5101 ####[facility] [address] [place], [address] Globulin (S) [Mass/Vol] 2.5 g/dL Normal 2.2-4.2 [facility] Comment on above: Performed By: #### L 501.4700, L500.4050, L3380.1000, L501.2300, L100.0100, L501.5200, L501.5101 ####[facility] [address] [place], [address] Glucose [Mass/Vol] 87 mg/dL Normal 70-99 [facility] Comment on above: Performed By: #### L 501.4700, L500.4050, L3380.1000, L501.2300, L100.0100, L501.5200, L501.5101 ####[facility] [address] [place], [address] Potassium [Moles/Vol] 4.6 mmol/L Normal 3.3-5.1 [facility] Comment on above: Performed By: #### L 501.4700, L500.4050, L3380.1000, L501.2300, L100.0100, L501.5200, L501.5101 ####[facility] [address] [place], [address] Sodium [Moles/Vol] 135 mmol/L Normal 133-145 [facility] Comment on above: Performed By: #### L 501.4700, L500.4050, L3380.1000, L501.2300, L100.0100, L501.5200, L501.5101 ####[facility] [address] [place], [address] T PROT 5.8 g/dL Low 5.9-8.4 [facility] Comment on above: Performed By: #### L 501.4700, L500.4050, L3380.1000, L501.2300, L100.0100, L501.5200, L501.5101 ####[facility] [address] [place], [address] Urea nitrogen [Mass/Vol] 21 mg/dL High 4-19 [facility] Comment on above: Performed By: #### L 501.4700, L500.4050, L3380.1000, L501.2300, L100.0100, L501.5200, L501.5101 ####[facility] [address] [place], [address] Magnesiumon 06-16-2024 Magnesium [Mass/Vol] 1.7 mg/dL Normal 1.5-2.2 [facility] Comment on above: Performed By: #### L 501.4700, L500.4050, L3380.1000, L501.2300, L100.0100, L501.5200, L501.5101 ####[facility] [address] [place], [place], [phone](218) Phosphoruson 06-16-2024 Phosphate [Mass/Vol] 2.1 mg/dL Low 2.7-4.5 [facility] Comment on above: Performed By: #### L 501.4700, L500.4050, L3380.1000, L501.2300, L100.0100, L501.5200, L501.5101 ####[facility] [address] [place], [place], [phone]- L501.5101on 06-15-2024 GGTP 31 IU/L Normal 0-65 [facility] Comment on above: Order Comment: Test( s) [id number]-Jyeutbskas (FK506), Bloodwas developed and its performance characteristicsdetermined by [facility]. It has not been cleared or approvedby the Food and Drug Administration. Result Comment: Perf ormed at: [facility] [address] [id number] Director: Sergio Machado MD, Phone: [phone] at: [address] [id number] Director: Red Graham PhD, Phone: [phone] Performed By: #### L 3410.9998, L501.5101, L500.4050, L501.2300, L3380.1000, L501.5200, L501.4700, L100.0100 ####[facility] [address] [place], [place], [address] Tacrolimus (Prograf)on 06-15 Tacrolimus (Bld) [Mass/Vol] 4.9 ng/mL Low 5.0-20.0 [facility] Comment on above: Order Comment: Test( s) [id number]-Uqdbvmvllg (FK506), Bloodwas developed and its performance characteristicsdetermined by [facility]. It has not been cleared or approvedby the Food and Drug Administration. Result Comment: Ubaldog et steady state trough concentration forTacrolimus varies based on type of organ transplantimmunosuppressive protocol and other patient specificfactors. Tacrolimus trough concentrations should beinterpreted in conjunction with clinical assessmentsof rejection and tolerability. Values obtained withdifferent assay methods cannot be used interchangeablydue to differences in assay methods and cross-reactivtywith metabolites, nor should correction factors beapplied. Therefore, consistent use of one assay forindividual patients is recommended.Detection Limit = 0.5 ng/mLPerformed by LC-MS/MS technology Please note reference interval change Performed By: #### L 3410.9998, L501.5101, L500.4050, L501.2300, L3380.1000, L501.5200, L501.4700, L100.0100 ####[facility] [address] [place], [address] Bilirubin, Directon 06-14-19 25 Bilirubin.direct [Mass/Vol] 0.51 mg/dL High 0.00-0.30 [facility] Comment on above: Performed By: #### L 3410.9998, L501.5101, L500.4050, L501.2300, L3380.1000, L501.5200, L501.4700, L100.0100 ####[facility] [address] [place], [place], [id number] CBC W/Diff, Automatedon 04- Absolute Lymph 0.62 X10 3/uL Low 0.83-4.51 [facility] Comment on above: Performed By: #### L 3410.9998, L501.5101, L500.4050, L501.2300, L3380.1000, L501.5200, L501.4700, L100.0100 ####[facility] [address] [place], [address] Absolute Neut 9.0 X10 3/uL High 2.0-7.7 [facility] Comment on above: Performed By: #### L 3410.9998, L501.5101, L500.4050, L501.2300, L3380.1000, L501.5200, L501.4700, L100.0100 ####[facility] [address] [place], [address] Basophils/100 WBC (Bld) 0.8 % Normal 0-1 [facility] Comment on above: Performed By: #### L 3410.9998, L501.5101, L500.4050, L501.2300, L3380.1000, L501.5200, L501.4700, L100.0100 ####[facility] [address] [place], [address] Eosinophils/100 WBC (Bld) 0.0 % Normal 0-5 [facility] Comment on above: Performed By: #### L 3410.9998, L501.5101, L500.4050, L501.2300, L3380.1000, L501.5200, L501.4700, L100.0100 ####[facility] [address] [place], [address] Erythrocyte distribution width (RBC) [Ratio] 15.9 % High 11.6-14.6 [facility] Comment on above: Performed By: #### L 3410.9998, L501.5101, L500.4050, L501.2300, L3380.1000, L501.5200, L501.4700, L100.0100 ####[facility] [address] [place], [address] Hematocrit (Bld) [Volume fraction] 32.3 % Low 40-54 [facility] Comment on above: Performed By: #### L 3410.9998, L501.5101, L500.4050, L501.2300, L3380.1000, L501.5200, L501.4700, L100.0100 ####[facility] [address] [place], [address] Hemoglobin (Bld) [Mass/Vol] 10.5 g/dL Low 13.0-16.5 [facility] Comment on above: Performed By: #### L 3410.9998, L501.5101, L500.4050, L501.2300, L3380.1000, L501.5200, L501.4700, L100.0100 ####[facility] [address] [facility] [place], [address] IG% 0.700 Normal 0.0-0.9 [facility] Comment on above: Result Comment: IG% - Immature Granulocytes (promyelocytes, myelocytes andmetamyelocytes) > 1% indicates that a LEFT SHIFT is Present. Performed By: #### L 3410.9998, L501.5101, L500.4050, L501.2300, L3380.1000, L501.5200, L501.4700, L100.0100 ####[facility] [address] [facility] [place], [address] Lymphocytes/100 WBC (Bld) 6.1 % Low 19-41 [facility] Comment on above: Performed By: #### L 3410.9998, L501.5101, L500.4050, L501.2300, L3380.1000, L501.5200, L501.4700, L100.0100 ####[facility] [address] [facility] [place], [address] MCH (RBC) [Entitic mass] 31.2 pg Normal 27.0-32.0 [facility] Comment on above: Performed By: #### L 3410.9998, L501.5101, L500.4050, L501.2300, L3380.1000, L501.5200, L501.4700, L100.0100 ####[facility] [address] [place], [address] MCHC (RBC) [Mass/Vol] 32.5 g/dL Normal 32-36 [facility] Comment on above: Performed By: #### L 3410.9998, L501.5101, L500.4050, L501.2300, L3380.1000, L501.5200, L501.4700, L100.0100 ####[facility] [address] [place], [address] MCV (RBC) [Entitic vol] 95.8 fL High 80-94 [facility] Comment on above: Performed By: #### L 3410.9998, L501.5101, L500.4050, L501.2300, L3380.1000, L501.5200, L501.4700, L100.0100 ####[facility] [address] [place], [address] Monocytes/100 WBC (Bld) 3.7 % Normal 0-10 [facility] Comment on above: Performed By: #### L 3410.9998, L501.5101, L500.4050, L501.2300, L3380.1000, L501.5200, L501.4700, L100.0100 ####[facility] [address] [place], [address] Neutrophils/100 WBC (Bld) 88.7 % High 47-70 [facility] Comment on above: Performed By: #### L 3410.9998, L501.5101, L500.4050, L501.2300, L3380.1000, L501.5200, L501.4700, L100.0100 ####[facility] [address] [place], [address] Nucleated RBC (Bld) [#/Vol] 0 10*3/uL Normal 0-5 [facility] Comment on above: Performed By: #### L 3410.9998, L501.5101, L500.4050, L501.2300, L3380.1000, L501.5200, L501.4700, L100.0100 ####[facility] [address] [place], [address](248) Platelet mean volume (Bld) [Entitic vol] 10.7 fL Normal 6.2-12.0 [facility] Comment on above: Performed By: #### L 3410.9998, L501.5101, L500.4050, L501.2300, L3380.1000, L501.5200, L501.4700, L100.0100 ####[facility] [address] [place], [address](223) Platelets (Bld) [#/Vol] 530 10*3/uL High 150-450 [facility] Comment on above: Performed By: #### L 3410.9998, L501.5101, L500.4050, L501.2300, L3380.1000, L501.5200, L501.4700, L100.0100 ####[facility] [address] [place], [address](074) RBC (Bld) [#/Vol] 3.37 10*6/uL Low 4.6-6.2 [facility] Comment on above: Performed By: #### L 3410.9998, L501.5101, L500.4050, L501.2300, L3380.1000, L501.5200, L501.4700, L100.0100 ####[facility] [address] [place], [address] RDW SD 54.8 fl High 35.1-43.9 [facility] Comment on above: Performed By: #### L 3410.9998, L501.5101, L500.4050, L501.2300, L3380.1000, L501.5200, L501.4700, L100.0100 ####[facility] [address] [place], [place], [phone] WBC (Bld) [#/Vol] 10.1 10*3/uL Normal 4.4-11.0 [facility] Comment on above: Performed By: #### L 3410.9998, L501.5101, L500.4050, L501.2300, L3380.1000, L501.5200, L501.4700, L100.0100 ####[facility] [address] [place], [place], [phone] Comprehensive Metabolic Prof ilon 06-13-2024 Albumin [Mass/Vol] 3.4 g/dL Low 3.5-5.0 [facility] Comment on above: Performed By: #### L 3410.9998, L501.5101, L500.4050, L501.2300, L3380.1000, L501.5200, L501.4700, L100.0100 ####[facility] [address] [place], [address] Albumin/Globulin [Mass ratio] 1.4 {ratio} Normal 0.9-2.4 [facility] Comment on above: Performed By: #### L 3410.9998, L501.5101, L500.4050, L501.2300, L3380.1000, L501.5200, L501.4700, L100.0100 ####[facility] [address] [place], [place], [id number] ALK PHOS 215 U/L High 40-129 [facility] Comment on above: Performed By: #### L 3410.9998, L501.5101, L500.4050, L501.2300, L3380.1000, L501.5200, L501.4700, L100.0100 ####[facility] [address] [place], [address] ALT [Catalytic activity/Vol] 30 U/L Normal <=46 [facility] Comment on above: Performed By: #### L 3410.9998, L501.5101, L500.4050, L501.2300, L3380.1000, L501.5200, L501.4700, L100.0100 ####[facility] [address] [place], [address] AST [Catalytic activity/Vol] 29 U/L Normal <=37 [facility] Comment on above: Performed By: #### L 3410.9998, L501.5101, L500.4050, L501.2300, L3380.1000, L501.5200, L501.4700, L100.0100 ####[facility] [address] [place], [address] Bilirubin [Mass/Vol] 0.82 mg/dL Normal 0.00-1.30 [facility] Comment on above: Performed By: #### L 3410.9998, L501.5101, L500.4050, L501.2300, L3380.1000, L501.5200, L501.4700, L100.0100 ####[facility] [address] [place], [address] BUN/CRE 21.0 RATIO High 10-20 [facility] Comment on above: Performed By: #### L 3410.9998, L501.5101, L500.4050, L501.2300, L3380.1000, L501.5200, L501.4700, L100.0100 ####[facility] [address] [place], [address] Calcium [Mass/Vol] 8.7 mg/dL Normal 7.6-11.0 [facility] Comment on above: Performed By: #### L 3410.9998, L501.5101, L500.4050, L501.2300, L3380.1000, L501.5200, L501.4700, L100.0100 ####[facility] [address] [place], [address] Chloride [Moles/Vol] 99 mmol/L Normal 98-108 [facility] Comment on above: Performed By: #### L 3410.9998, L501.5101, L500.4050, L501.2300, L3380.1000, L501.5200, L501.4700, L100.0100 ####[facility] [address] [place], [place], [phone]) CO2 [Moles/Vol] 22.3 mmol/L Normal 21.0-32.0 [facility] Comment on above: Performed By: #### L 3410.9998, L501.5101, L500.4050, L501.2300, L3380.1000, L501.5200, L501.4700, L100.0100 ####[facility] [address] [place], [place], [phone](005) Creatinine [Mass/Vol] 0.88 mg/dL Normal 0.70-1.20 [facility] Comment on above: Performed By: #### L 3410.9998, L501.5101, L500.4050, L501.2300, L3380.1000, L501.5200, L501.4700, L100.0100 ####[facility] [address] [place], [place], [phone](714) GAP 10 Normal 5-15 [facility] Comment on above: Performed By: #### L 3410.9998, L501.5101, L500.4050, L501.2300, L3380.1000, L501.5200, L501.4700, L100.0100 ####[facility] [address] [place], [address] GFR/1.73 sq M.predicted among non-blacks MDRD (S/P/Bld) [Vol rate/Area] 99 mL/min/{1.73_m2} Normal >60 [facility] Comment on above: Result Comment: mL/m in/1.73m2 CKD-EPI Creatinine Equation (2020) Performed By: #### L 3410.9998, L501.5101, L500.4050, L501.2300, L3380.1000, L501.5200, L501.4700, L100.0100 ####[facility] [address] [place], [address] Globulin (S) [Mass/Vol] 2.5 g/dL Normal 2.2-4.2 [facility] Comment on above: Performed By: #### L 3410.9998, L501.5101, L500.4050, L501.2300, L3380.1000, L501.5200, L501.4700, L100.0100 ####[facility] [address] [place], [address] Glucose [Mass/Vol] 97 mg/dL Normal 70-99 [facility] Comment on above: Performed By: #### L 3410.9998, L501.5101, L500.4050, L501.2300, L3380.1000, L501.5200, L501.4700, L100.0100 ####[facility] [address] [place], [address] Potassium [Moles/Vol] 4.3 mmol/L Normal 3.3-5.1 [facility] Comment on above: Performed By: #### L 3410.9998, L501.5101, L500.4050, L501.2300, L3380.1000, L501.5200, L501.4700, L100.0100 ####[facility] [address] [place], [address] Sodium [Moles/Vol] 131 mmol/L Low 133-145 [facility] Comment on above: Performed By: #### L 3410.9998, L501.5101, L500.4050, L501.2300, L3380.1000, L501.5200, L501.4700, L100.0100 ####[facility] [address] [place], [address] T PROT 5.9 g/dL Normal 5.9-8.4 [facility] Comment on above: Performed By: #### L 3410.9998, L501.5101, L500.4050, L501.2300, L3380.1000, L501.5200, L501.4700, L100.0100 ####[facility] [address] [place], [address] Urea nitrogen [Mass/Vol] 19 mg/dL Normal 4-19 [facility] Comment on above: Performed By: #### L 3410.9998, L501.5101, L500.4050, L501.2300, L3380.1000, L501.5200, L501.4700, L100.0100 ####[facility] [address] [place], [address] Magnesiumon 06-13-2024 Magnesium [Mass/Vol] 1.7 mg/dL Normal 1.5-2.2 [facility] Comment on above: Performed By: #### L 3410.9998, L501.5101, L500.4050, L501.2300, L3380.1000, L501.5200, L501.4700, L100.0100 ####[facility] [address] [place], [address] No Panel Informationon 06-13 Miscellaneous Test 4 COMMENT . [facility] Comment on above: Test Ordered: 614663 Phosphatidylethanol (PEth)PHOSPHATIDYLETHANOL Negative MX Reference Range: .Phosphatidylethanol (PEth) Negative ng/mL MX Reference Range: .Analyzed compound: PEth 16:0/18:1. 1-lwrhchnty-6-jvvfjp-jc-tonnzdn-3-phosphoethanol.Analysis performed by Liquid Chromatography withTandem Mass Spectrometry (LC/MS/MS).Detection limit: 20 ng/mLPEth levels in excess of 20 ng/mL are considered evidenceof moderate to heavy ethanol consumption. However,the [facility] Abuse [facility] (CSAT) advisescaution in interpretation and use of biomarkers aloneto assess alcohol use. Results should be interpretedin the context of all available clinical and behavioralinformation.Reference: Substance Abuse and Mental Health Services Administration (2012). The Role of Biomarkers in the Treatment of Alcohol Use Disorders, 2012 Revision. Advisory, Volume 11, Issue 2.This test was developed and its performance characteristicsdetermined by [facility]. It has not been cleared or approvedby the Food and Drug Administration.Performed at: [facility] [address] [place] [id number] Director: Clau Abdalla [facility], Phone: [phone] at: [facility] [address] [id number] Director: Red Graham PhD, Phone: [phone] Phosphoruson 06-13-2024 Phosphate [Mass/Vol] 2.1 mg/dL Low 2.7-4.5 [facility] Comment on above: Performed By: #### L 3410.9998, L501.5101, L500.4050, L501.2300, L3380.1000, L501.5200, L501.4700, L100.0100 ####[facility] [address] [place], [address] CALCIUMon 06-10-2024 Calcium [Mass/Vol] 7.8 mg/dL Low 8.6-10.5 [facility] Comment on above: Performed By: #### I PB, HFP, CHM7, MGO, CA ####[facility] (DEFAULT)[address] [facility] [place] [address] CBC,PLATELETSon 06-10-2024 Hematocrit (Bld) [Volume fraction] 30.8 % Low 39.6-48.8 [facility] Comment on above: Performed By: #### H EMOGC ####[facility] (DEFAULT)[address] [facility] [place] [address] Hemoglobin (Bld) [Mass/Vol] 10.0 g/dL Low 13.4-16.8 [facility] Comment on above: Performed By: #### H EMOGC ####[facility] (DEFAULT)[address] [place] [address], [place] [address] MCV (RBC) [Entitic vol] 94.2 fL Normal 79.0-94.5 [facility] Comment on above: Performed By: #### H EMOGC ####[facility] (DEFAULT)[address] [place] [address] Mean Cell Hgb 30.6 pg Normal 26.1-33.3 [facility] Comment on above: Performed By: #### H EMOGC ####[facility] (DEFAULT)[address] [place] [address] Mean Cell Hgb Conc 32.5 g/dL Normal 31.9-36.5 [facility] Comment on above: Performed By: #### H EMOGC ####[facility] (DEFAULT)[address] [place] [address], [place] [address] Platelet mean volume (Bld) [Entitic vol] 11.6 fL Normal 8.7-12.3 [facility] Comment on above: Performed By: #### H EMOGC ####[facility] (DEFAULT)[address] [facility] [place] [address] Platelets (Bld) [#/Vol] 205 10*3/uL Normal 146-337 [facility] Comment on above: Performed By: #### H EMOGC ####[facility] (DEFAULT)[address] [place] [address] RBC (Bld) [#/Vol] 3.27 10*6/uL Low 4.38-5.83 [facility] Comment on above: Performed By: #### H EMO ####[facility] (DEFAULT)[address] [place] [address] RBC Distribution 15.5 % High 10.9-14.3 [facility] Comment on above: Performed By: #### [facility] ####[facility] (DEFAULT)[address] [facility] [place] [address] WBC (Bld) [#/Vol] 9.04 10*3/uL Normal 3.73-10.10 [facility] Comment on above: Performed By: #### H [facility] [place] ####[facility] (DEFAULT)[address] [facility] [place] [address] CHEM 7 (LYTES,BUN,CREA,GLUC) on 06-10-2024 Anion gap [Moles/Vol] 10 mmol/L Normal 7-17 [facility] Comment on above: Performed By: #### I PB, HFP, CHM7, MGO, CA ####[facility] (DEFAULT)[address] [facility] [place] [address] Chloride [Moles/Vol] 100 mmol/L Normal 98-108 [facility] Comment on above: Performed By: #### I PB, HFP, CHM7, MGO, CA ####[facility] (DEFAULT)[address] [facility] [place] [address] CO2 [Moles/Vol] 25 mmol/L Normal 21-31 [facility] Comment on above: Performed By: #### I PB, HFP, CHM7, MGO, CA ####[facility] (DEFAULT)[address] [facility] [place] [address] Creatinine [Mass/Vol] 0.71 mg/dL Normal 0.70-1.30 [facility] Comment on above: Performed By: #### I PB, HFP, CHM7, MGO, CA ####[facility] (DEFAULT)[address] [place] [address] eGFR, CKD-EPI, Male > Normal >=60 [facility] Comment on above: Result Comment: Repo rted eGFR is based on the CKD-EPI 2020 equation using creatinine, age, and sex. Performed By: #### I PB, HFP, CHM7, MGO, CA ####[facility] (DEFAULT)[address] [facility] [place] [address] Glucose [Mass/Vol] 93 mg/dL Normal Nonfastin -179 mg/dL; Fastin-99 [facility] Comment on above: Performed By: #### I PB, HFP, CHM7, MGO, CA ####[facility] (DEFAULT)[address] [place] [address] Osmolality [Osmolality] 277 mosm/kg Low 278-305 [facility] Comment on above: Performed By: #### I PB, HFP, CHM7, MGO, CA ####[facility] (DEFAULT)[address] [place] [address] Potassium [Moles/Vol] 4.8 mmol/L Normal 3.5-5.0 [facility] Comment on above: Performed By: #### I PB, HFP, CHM7, MGO, CA ####[facility] (DEFAULT)[address] [place] [address] Sodium [Moles/Vol] 130 mmol/L Low 135-145 [facility] Comment on above: Performed By: #### I PB, HFP, CHM7, MGO, CA ####[facility] (DEFAULT)[address] [facility] [place] [address] Urea nitrogen [Mass/Vol] 18 mg/dL Normal 7-25 [facility] Comment on above: Performed By: #### I PB, HFP, CHM7, MGO, CA ####[facility] (DEFAULT)[address] [place] [address] Urea nitrogen/Creatinine [Mass ratio] 25 mg/mg Normal [facility] Comment on above: Performed By: #### I PB, HFP, CHM7, MGO, CA ####[facility] (DEFAULT)[address] [place] [address] HEPATIC FUNCTION PANELon Albumin [Mass/Vol] 3.0 g/dL Low 3.5-5.0 [facility] Comment on above: Performed By: #### I PB, HFP, CHM7, MGO, CA ####[facility] (DEFAULT)[address] [place] [address] ALP [Catalytic activity/Vol] 145 U/L High 32-126 [facility] Comment on above: Performed By: #### I PB, HFP, CHM7, MGO, CA ####[facility] (DEFAULT)[address] [place] [address] ALT [Catalytic activity/Vol] 21 U/L Normal 10-52 [facility] Comment on above: Performed By: #### I PB, HFP, CHM7, MGO, CA ####[facility] (DEFAULT)[address] [place] [address] AST [Catalytic activity/Vol] 16 U/L Normal 10-39 [facility] Comment on above: Performed By: #### I PB, HFP, CHM7, MGO, CA ####[facility] (DEFAULT)[address] [facility] [place] [address] Bilirubin [Mass/Vol] 1.1 mg/dL Normal <1.5 [facility] Comment on above: Performed By: #### I PB, HFP, CHM7, MGO, CA ####[facility] (DEFAULT)[address] [place] [address] Bilirubin.indirect [Mass/Vol] 0.4 mg/dL High <0.3 [facility] Comment on above: Performed By: #### I PB, HFP, CHM7, MGO, CA ####[facility] (DEFAULT)[address] [place] [address] Protein [Mass/Vol] 5.0 g/dL Low 6.4-8.3 [facility] Comment on above: Performed By: #### I PB, HFP, CHM7, MGO, CA ####[facility] (DEFAULT)[address] [place] [address] IONIZED CALCIUM, WHOLE BLOOD on 06-10-2024 ICA 4.34 mg/dL Low 4.60-5.30 [facility] Comment on above: Performed By: #### I CA ####[facility] (DEFAULT)[address] [place] [address] LACTATE, BLOODon 06-10-2024 Lactate, Blood 1.2 mmol/L Normal 0.5-1.6 [facility] Comment on above: Performed By: #### L ACT ####[facility] (DEFAULT)[address] [place] [address] MAGNESIUMon 06-10-2024 Magnesium [Mass/Vol] 1.9 mg/dL Normal 1.6-2.6 [facility] Comment on above: Performed By: #### I PB, HFP, CHM7, MGO, CA ####[facility] (DEFAULT)[address] [place] [address] PHOSPHATE, INORGANICon 06-10 Phosphorous 1.7 mg/dL Low 2.2-4.6 [facility] Comment on above: Performed By: #### I PB, HFP, CHM7, MGO, CA ####[facility] (DEFAULT)[address] [place] [address] PT,INR,PTTon 06-10-2024 aPTT Coag (Bld) [Time] 29.9 s Normal 24.0-34.3 [facility] Comment on above: Performed By: #### P TPTT ####[facility] (DEFAULT)[address] [facility] [place] [address] INR Coag (PPP) [Relative time] 1.1 {INR} Normal 0.9-1.1 [facility] Comment on above: Performed By: #### P TPTT ####[facility] (DEFAULT)[address] [facility] [place] [address] PT Coag (PPP) [Time] 13.7 s Normal 11.9-14.2 [facility] Comment on above: Performed By: #### P TPTT ####[facility] (DEFAULT)[address] [place] [address] TACROLIMUS LEVEL, TROUGH (PA E DRUG LEVEL)on 06-10-2024 Tacrolimus, Trough 7.1 ng/mL Normal Bone Veronique ow Transplant: 5.0-15.0 Kidney/Pancre atic Transplant: 0 to 3 months: 8.0-10.0, 3 to 12 months: 6.0-8.0, >12 months: 4.0-6.0 [facility] Comment on above: Order Comment: Pleas e draw at specified interval PRIOR to dose. Do not hold dose to wait for level. Specimens batched twice per day, (M-F) and once per day weekendsMethod performed is a chemiluminescent microparticle immunoasssay on the [employer] i2000.The range is based on experience at [facility] and users should be aware that target concentrations vary widely depending on concomitant therapy, time post-transplant, and desired degree of immunosuppression. Performed By: #### T ACRO ####[facility] (DEFAULT)[address] [place] [address] CALCIUMon 06-09-2024 Calcium [Mass/Vol] 8.1 mg/dL Low 8.6-10.5 [facility] Comment on above: Performed By: #### I PB, HFP, CHM7, MGO, CA ####[facility] (DEFAULT)[address] [facility] [place] [address] CBC,PLATELETSon 06-09-2024 Hematocrit (Bld) [Volume fraction] 32.9 % Low 39.6-48.8 [facility] Comment on above: Performed By: #### H EMO ####[facility] (DEFAULT)[address] [facility] [place] [address] Hemoglobin (Bld) [Mass/Vol] 10.7 g/dL Low 13.4-16.8 [facility] Comment on above: Performed By: #### H EMO ####[facility] (DEFAULT)[address] [facility] [place] [address] MCV (RBC) [Entitic vol] 93.2 fL Normal 79.0-94.5 [facility] Comment on above: Performed By: #### H EMO ####[facility] (DEFAULT)[address] [place] [address] Mean Cell Hgb 30.3 pg Normal 26.1-33.3 [facility] Comment on above: Performed By: #### H EMO ####[facility] (DEFAULT)[address] [facility] [place] [address] Mean Cell Hgb Conc 32.5 g/dL Normal 31.9-36.5 [facility] Comment on above: Performed By: #### H EMOGC ####[facility] (DEFAULT)[address] [facility] [place] [address] Platelet mean volume (Bld) [Entitic vol] 11.6 fL Normal 8.7-12.3 [facility] Comment on above: Performed By: #### H EMOGC ####[facility] (DEFAULT)[address] [facility] [place] [address] Platelets (Bld) [#/Vol] 147 10*3/uL Normal 146-337 [facility] Comment on above: Performed By: #### H EMOGC ####[facility] (DEFAULT)[address] [facility] [place] [address] RBC (Bld) [#/Vol] 3.53 10*6/uL Low 4.38-5.83 [facility] Comment on above: Performed By: #### H EMOGC ####[facility] (DEFAULT)[address] [facility] [place] [address] RBC Distribution 15.5 % High 10.9-14.3 [facility] Comment on above: Performed By: #### H EMOGC ####[facility] (DEFAULT)[address] [facility] [place] [address] WBC (Bld) [#/Vol] 8.37 10*3/uL Normal 3.73-10.10 [facility] Comment on above: Performed By: #### H EMOGC ####[facility] (DEFAULT)[address] [place] [address] Hematocrit (Bld) [Volume fraction] 33.0 % Low 39.6-48.8 [facility] Comment on above: Performed By: #### H EMOGC ####[facility] (DEFAULT)[address] [place] [address] Hemoglobin (Bld) [Mass/Vol] 10.8 g/dL Low 13.4-16.8 [facility] Comment on above: Performed By: #### H EMOGC ####[facility] (DEFAULT)[address] [place] [address] MCV (RBC) [Entitic vol] 94.8 fL High 79.0-94.5 [facility] Comment on above: Performed By: #### H EMOGC ####[facility] (DEFAULT)[address] [facility] [place] [address] Mean Cell Hgb 31.0 pg Normal 26.1-33.3 [facility] Comment on above: Performed By: #### H EMOGC ####[facility] (DEFAULT)[address] [facility] [place] [address] Mean Cell Hgb Conc 32.7 g/dL Normal 31.9-36.5 [facility] Comment on above: Performed By: #### H EMOGC ####[facility] (DEFAULT)[address] [facility] [place] [address] Mean Platelet Volume Normal [facility] Comment on above: Result Comment: Not measured Performed By: #### H EMOGC ####[facility] (DEFAULT)[address] [facility] [place] [address] Platelets (Bld) [#/Vol] 135 10*3/uL Low 146-337 [facility] Comment on above: Performed By: #### H EMOGC ####[facility] (DEFAULT)[address] [place] [address] RBC (Bld) [#/Vol] 3.48 10*6/uL Low 4.38-5.83 [facility] Comment on above: Performed By: #### H EMO ####[facility] (DEFAULT)[address] [facility] [place] [address] RBC Distribution 15.7 % High 10.9-14.3 [facility] Comment on above: Performed By: #### H EMOGC ####[facility] (DEFAULT)[address] [place] [address] WBC (Bld) [#/Vol] 8.26 10*3/uL Normal 3.73-10.10 [facility] Comment on above: Performed By: #### H EMOGC ####[facility] (DEFAULT)[address] [place] [address] CHEM 7 (LYTES,BUN,CREA,GLUC) on 06-09-2024 Anion gap [Moles/Vol] 12 mmol/L Normal 7-17 [facility] Comment on above: Performed By: #### I PB, HFP, CHM7, MGO ####[facility] (DEFAULT)[address] [place] [address] Chloride [Moles/Vol] 101 mmol/L Normal 98-108 [facility] Comment on above: Performed By: #### I PB, HFP, CHM7, MGO ####[facility] (DEFAULT)[address] [place] [address] CO2 [Moles/Vol] 23 mmol/L Normal 21-31 [facility] Comment on above: Performed By: #### I PB, HFP, CHM7, MGO ####[facility] (DEFAULT)[address] [place] [address] Creatinine [Mass/Vol] 0.77 mg/dL Normal 0.70-1.30 [facility] Comment on above: Performed By: #### I PB, HFP, CHM7, MGO ####[facility] (DEFAULT)[address] [place] [address] eGFR, CKD-EPI, Male > Normal >=60 [facility] Comment on above: Result Comment: Repo rted eGFR is based on the CKD-EPI 2020 equation using creatinine, age, and sex. Performed By: #### I PB, HFP, CHM7, MGO ####[facility] (DEFAULT)[address] [place] [address] Glucose [Mass/Vol] 126 mg/dL Normal Nonfastin -179 mg/dL; Fastin-99 [facility] Comment on above: Performed By: #### I PB, HFP, CHM7, MGO ####[facility] (DEFAULT)[address] [place] [address] Osmolality [Osmolality] 281 mosm/kg Normal 278-305 [facility] Comment on above: Performed By: #### I PB, HFP, CHM7, MGO ####[facility] (DEFAULT)[address] [place] [address] Potassium [Moles/Vol] 4.5 mmol/L Normal 3.5-5.0 [facility] Comment on above: Performed By: #### I PB, HFP, CHM7, MGO ####[facility] (DEFAULT)[address] [place] [address] Sodium [Moles/Vol] 131 mmol/L Low 135-145 [facility] Comment on above: Performed By: #### I PB, HFP, CHM7, MGO ####[facility] (DEFAULT)[address] [place] [address] Urea nitrogen [Mass/Vol] 20 mg/dL Normal 7-25 [facility] Comment on above: Performed By: #### I PB, HFP, CHM7, MGO ####[facility] (DEFAULT)[address] [place] [address] Urea nitrogen/Creatinine [Mass ratio] 26 mg/mg Normal [facility] Comment on above: Performed By: #### I PB, HFP, CHM7, MGO ####[facility] (DEFAULT)[address] [place] [address] Anion gap [Moles/Vol] 11 mmol/L Normal 7-17 [facility] Comment on above: Performed By: #### I PB, HFP, CHM7, MGO, CA ####[facility] (DEFAULT)[address] [place] [address] Chloride [Moles/Vol] 101 mmol/L Normal 98-108 [facility] Comment on above: Performed By: #### I PB, HFP, CHM7, MGO, CA ####[facility] (DEFAULT)[address] [place] [address] CO2 [Moles/Vol] 24 mmol/L Normal 21-31 [facility] Comment on above: Performed By: #### I PB, HFP, CHM7, MGO, CA ####[facility] (DEFAULT)[address] [facility] [place] [address] Creatinine [Mass/Vol] 0.80 mg/dL Normal 0.70-1.30 [facility] Comment on above: Performed By: #### I PB, HFP, CHM7, MGO, CA ####[facility] (DEFAULT)[address] [facility] [place] [address] eGFR, CKD-EPI, Male > Normal >=60 [facility] Comment on above: Result Comment: Repo rted eGFR is based on the CKD-EPI 2020 equation using creatinine, age, and sex. Performed By: #### I PB, HFP, CHM7, MGO, CA ####[facility] (DEFAULT)[address] [place] [address] Glucose [Mass/Vol] 82 mg/dL Normal Nonfastin -179 mg/dL; Fastin-99 [facility] Comment on above: Performed By: #### I PB, HFP, CHM7, MGO, CA ####[facility] (DEFAULT)[address] [place] [address] Osmolality [Osmolality] 280 mosm/kg Normal 278-305 [facility] Comment on above: Performed By: #### I PB, HFP, CHM7, MGO, CA ####[facility] (DEFAULT)[address] [place] [address] Potassium [Moles/Vol] 5.0 mmol/L Normal 3.5-5.0 [facility] Comment on above: Performed By: #### I PB, HFP, CHM7, MGO, CA ####[facility] (DEFAULT)[address] [facility] [place] [address] Sodium [Moles/Vol] 131 mmol/L Low 135-145 [facility] Comment on above: Performed By: #### I PB, HFP, CHM7, MGO, CA ####[facility] (DEFAULT)[address] [place] [address] Urea nitrogen [Mass/Vol] 22 mg/dL Normal 7-25 [facility] Comment on above: Performed By: #### I PB, HFP, CHM7, MGO, CA ####[facility] (DEFAULT)[address] [place] [address] Urea nitrogen/Creatinine [Mass ratio] 28 mg/mg Normal [facility] Comment on above: Performed By: #### I PB, HFP, CHM7, MGO, CA ####[facility] (DEFAULT)[address] [place] [address] HEPATIC FUNCTION PANELon Albumin [Mass/Vol] 3.0 g/dL Low 3.5-5.0 [facility] Comment on above: Performed By: #### I PB, HFP, CHM7, MGO ####[facility] (DEFAULT)[address] [place] [address] ALP [Catalytic activity/Vol] 120 U/L Normal 32-126 [facility] Comment on above: Performed By: #### I PB, HFP, CHM7, MGO ####[facility] (DEFAULT)[address] [place] [address] ALT [Catalytic activity/Vol] 22 U/L Normal 10-52 [facility] Comment on above: Performed By: #### I PB, HFP, CHM7, MGO ####[facility] (DEFAULT)[address] [place] [address] AST [Catalytic activity/Vol] 13 U/L Normal 10-39 [facility] Comment on above: Performed By: #### I PB, HFP, CHM7, MGO ####[facility] (DEFAULT)[address] [place] [address] Bilirubin [Mass/Vol] 1.2 mg/dL Normal <1.5 [facility] Comment on above: Performed By: #### I PB, HFP, CHM7, MGO ####[facility] (DEFAULT)[address] [place] [address] Bilirubin.indirect [Mass/Vol] 0.5 mg/dL High <0.3 [facility] Comment on above: Performed By: #### I PB, HFP, CHM7, MGO ####[facility] (DEFAULT)[address] [place] [address] Protein [Mass/Vol] 5.0 g/dL Low 6.4-8.3 [facility] Comment on above: Performed By: #### I PB, HFP, CHM7, MGO ####[facility] (DEFAULT)[address] [place] [address] Albumin [Mass/Vol] 3.0 g/dL Low 3.5-5.0 [facility] Comment on above: Performed By: #### I PB, HFP, CHM7, MGO, CA ####[facility] (DEFAULT)[address] [place] [address] ALP [Catalytic activity/Vol] 121 U/L Normal 32-126 [facility] Comment on above: Performed By: #### I PB, HFP, CHM7, MGO, CA ####[facility] (DEFAULT)[address] [place] [address] ALT [Catalytic activity/Vol] 22 U/L Normal 10-52 [facility] Comment on above: Performed By: #### I PB, HFP, CHM7, MGO, CA ####[facility] (DEFAULT)[address] [place] [address] AST [Catalytic activity/Vol] 18 U/L Normal 10-39 [facility] Comment on above: Performed By: #### I PB, HFP, CHM7, MGO, CA ####[facility] (DEFAULT)[address] [place] [address] Bilirubin [Mass/Vol] 1.3 mg/dL Normal <1.5 [facility] Comment on above: Performed By: #### I PB, HFP, CHM7, MGO, CA ####[facility] (DEFAULT)[address] [place] [address] Bilirubin.indirect [Mass/Vol] 0.4 mg/dL High <0.3 [facility] Comment on above: Performed By: #### I PB, HFP, CHM7, MGO, CA ####[facility] (DEFAULT)[address] [facility] [place] [address] Protein [Mass/Vol] 5.0 g/dL Low 6.4-8.3 [facility] Comment on above: Performed By: #### I PB, HFP, CHM7, MGO, CA ####[facility] (DEFAULT)[address] [facility] [place] [address] IONIZED CALCIUM, WHOLE BLOOD on 06-09-2024 ICA 4.12 mg/dL Low 4.60-5.30 [facility] Comment on above: Performed By: #### I CA ####[facility] (DEFAULT)[address] [facility] [place] [address] LACTATE, BLOODon 06-09-2024 Lactate, Blood 2.7 mmol/L High 0.5-1.6 [facility] Comment on above: Result Comment: Lact ate results >/= 2.0 mmol/L should be followed up with a measurement 2 hours later for patients with suspicion of sepsis. Performed By: #### L ACT ####[facility] (DEFAULT)[address] [facility] [place] [address] MAGNESIUMon 06-09-2024 Magnesium [Mass/Vol] 2.5 mg/dL Normal 1.6-2.6 [facility] Comment on above: Performed By: #### I PB, MGO ####[facility] (DEFAULT)[address] [place] [address] Magnesium [Mass/Vol] 1.3 mg/dL Low 1.6-2.6 [facility] Comment on above: Performed By: #### I PB, HFP, CHM7, MGO ####[facility] (DEFAULT)[address] [place] [address] Magnesium [Mass/Vol] 1.4 mg/dL Low 1.6-2.6 [facility] Comment on above: Performed By: #### I PB, HFP, CHM7, MGO, CA ####[facility] (DEFAULT)[address] [place] [address] PHOSPHATE, INORGANICon 06-09 Phosphorous 1.9 mg/dL Low 2.2-4.6 [facility] Comment on above: Performed By: #### I PB, MGO ####[facility] (DEFAULT)[address] [place] [address] Phosphorous 1.4 mg/dL Low 2.2-4.6 [facility] Comment on above: Performed By: #### I PB, HFP, CHM7, MGO ####[facility] (DEFAULT)[address] [place] [address] Phosphorous 1.4 mg/dL Low 2.2-4.6 [facility] Comment on above: Performed By: #### I PB, HFP, CHM7, MGO, CA ####[facility] (DEFAULT)[address] [place] [address] PT,INR,PTTon 06-09-2024 aPTT Coag (Bld) [Time] 29.6 s Normal 24.0-34.3 [facility] Comment on above: Performed By: #### P TPTT ####[facility] (DEFAULT)[address] [place] [address] INR Coag (PPP) [Relative time] 1.1 {INR} Normal 0.9-1.1 [facility] Comment on above: Performed By: #### P TPTT ####[facility] (DEFAULT)[address] [place] [address] PT Coag (PPP) [Time] 13.9 s Normal 11.9-14.2 [facility] Comment on above: Performed By: #### P TPTT ####[facility] (DEFAULT)[address] [place] [address] TACROLIMUS LEVEL, TROUGH (PA E DRUG LEVEL)on 06-09-2024 Tacrolimus, Trough 8.8 ng/mL Normal Bone Veronique ow Transplant: 5.0-15.0 Kidney/Pancre atic Transplant: 0 to 3 months: 8.0-10.0, 3 to 12 months: 6.0-8.0, >12 months: 4.0-6.0 [facility] Comment on above: Order Comment: Pleas e draw at specified interval PRIOR to dose. Do not hold dose to wait for level. Specimens batched twice per day, (M-F) and once per day weekendsMethod performed is a chemiluminescent microparticle immunoasssay on the [employer] i2000.The range is based on experience at [facility] and users should be aware that target concentrations vary widely depending on concomitant therapy, time post-transplant, and desired degree of immunosuppression. Performed By: #### T ACRO ####[facility] (DEFAULT)[address] [place] [address] Tacrolimus, Trough 8.6 ng/mL Normal Bone Veronique ow Transplant: 5.0-15.0 Kidney/Pancre atic Transplant: 0 to 3 months: 8.0-10.0, 3 to 12 months: 6.0-8.0, >12 months: 4.0-6.0 [facility] Comment on above: Order Comment: Pleas e draw at specified interval PRIOR to dose. Do not hold dose to wait for level. Specimens batched twice per day, (M-F) and once per day weekendsMethod performed is a chemiluminescent microparticle immunoasssay on the [employer] i2000.The range is based on experience at [facility] and users should be aware that target concentrations vary widely depending on concomitant therapy, time post-transplant, and desired degree of immunosuppression. Performed By: #### T ACRO ####[facility] (DEFAULT)[address] [facility] [place] [address] CALCIUMon 06-08-2024 Calcium [Mass/Vol] 8.0 mg/dL Low 8.6-10.5 [facility] Comment on above: Performed By: #### I PB, HFP, CHM7, MGO, CA ####[facility] (DEFAULT)[address] [facility] [place] [address] CBC,PLATELETSon 06-08-2024 Hematocrit (Bld) [Volume fraction] 30.8 % Low 39.6-48.8 [facility] Comment on above: Performed By: #### H EMOGC ####[facility] (DEFAULT)[address] [place] [address] Hemoglobin (Bld) [Mass/Vol] 10.2 g/dL Low 13.4-16.8 [facility] Comment on above: Performed By: #### H EMOGC ####[facility] (DEFAULT)[address] [place] [address] MCV (RBC) [Entitic vol] 91.9 fL Normal 79.0-94.5 [facility] Comment on above: Performed By: #### H EMOGC ####[facility] (DEFAULT)[address] [facility] [place] [address] Mean Cell Hgb 30.4 pg Normal 26.1-33.3 [facility] Comment on above: Performed By: #### H EMOGC ####[facility] (DEFAULT)[address] [facility] [place] [address] Mean Cell Hgb Conc 33.1 g/dL Normal 31.9-36.5 [facility] Comment on above: Performed By: #### H EMOGC ####[facility] (DEFAULT)[address] [facility] [place] [address] Mean Platelet Volume Normal [facility] Comment on above: Result Comment: Not measured Performed By: #### H EMO ####[facility] (DEFAULT)[address] [place] [address] Platelets (Bld) [#/Vol] 74 10*3/uL Low 146-337 [facility] Comment on above: Performed By: #### H EMO ####[facility] (DEFAULT)[address] [facility] [place] [address] RBC (Bld) [#/Vol] 3.35 10*6/uL Low 4.38-5.83 [facility] Comment on above: Performed By: #### H EMO ####[facility] (DEFAULT)[address] [facility] [place] [address] RBC Distribution 15.3 % High 10.9-14.3 [facility] Comment on above: Performed By: #### H EMO ####[facility] (DEFAULT)[address] [facility] [place] [address] WBC (Bld) [#/Vol] 7.79 10*3/uL Normal 3.73-10.10 [facility] Comment on above: Performed By: #### H EMO ####[facility] (DEFAULT)[address] [place] [address] CHEM 7 (LYTES,BUN,CREA,GLUC) on 06-08-2024 Anion gap [Moles/Vol] 11 mmol/L Normal 7-[address] [facility] Comment on above: Performed By: #### I PB, HFP, CHM7, MGO, CA ####[facility] (DEFAULT)[address] [place] [address] Chloride [Moles/Vol] 104 mmol/L Normal 98-108 [facility] Comment on above: Performed By: #### I PB, HFP, CHM7, MGO, CA ####[facility] (DEFAULT)[address] [place] [address] CO2 [Moles/Vol] 24 mmol/L Normal 21-31 [facility] Comment on above: Performed By: #### I PB, HFP, CHM7, MGO, CA ####[facility] (DEFAULT)[address] [place] [address] Creatinine [Mass/Vol] 0.73 mg/dL Normal 0.70-1.30 [facility] Comment on above: Performed By: #### I PB, HFP, CHM7, MGO, CA ####[facility] (DEFAULT)[address] [facility] [place] [address] eGFR, CKD-EPI, Male > Normal >=60 [facility] Comment on above: Result Comment: Repo rted eGFR is based on the CKD-EPI 2020 equation using creatinine, age, and sex. Performed By: #### I PB, HFP, CHM7, MGO, CA ####[facility] (DEFAULT)[address] [facility] [place] [address] Glucose [Mass/Vol] 99 mg/dL Normal Nonfastin -179 mg/dL; Fastin-99 [facility] Comment on above: Performed By: #### I PB, HFP, CHM7, MGO, CA ####[facility] (DEFAULT)[address] [facility] [place] [address] Osmolality [Osmolality] 287 mosm/kg Normal 278-305 [facility] Comment on above: Performed By: #### I PB, HFP, CHM7, MGO, CA ####[facility] (DEFAULT)[address] [facility] [place] [address] Potassium [Moles/Vol] 4.6 mmol/L Normal 3.5-5.0 [facility] Comment on above: Performed By: #### I PB, HFP, CHM7, MGO, CA ####[facility] (DEFAULT)[address] [place] [address] Sodium [Moles/Vol] 134 mmol/L Low 135-145 [facility] Comment on above: Performed By: #### I PB, HFP, CHM7, MGO, CA ####[facility] (DEFAULT)[address] [place] [address] Urea nitrogen [Mass/Vol] 25 mg/dL Normal 7-25 [facility] Comment on above: Performed By: #### I PB, HFP, CHM7, MGO, CA ####[facility] (DEFAULT)[address] [place] [address] Urea nitrogen/Creatinine [Mass ratio] 34 mg/mg Normal [facility] Comment on above: Performed By: #### I PB, HFP, CHM7, MGO, CA ####[facility] (DEFAULT)[address] [facility] [place] [address] HEPATIC FUNCTION PANELon Albumin [Mass/Vol] 2.8 g/dL Low 3.5-5.0 [facility] Comment on above: Performed By: #### I PB, HFP, CHM7, MGO, CA ####[facility] (DEFAULT)[address] [place] [address] ALP [Catalytic activity/Vol] 116 U/L Normal 32-126 [facility] Comment on above: Performed By: #### I PB, HFP, CHM7, MGO, CA ####[facility] (DEFAULT)[address] [place] [address] ALT [Catalytic activity/Vol] 24 U/L Normal 10-52 [facility] Comment on above: Performed By: #### I PB, HFP, CHM7, MGO, CA ####[facility] (DEFAULT)[address] [place] [address] AST [Catalytic activity/Vol] 16 U/L Normal 10-39 [facility] Comment on above: Performed By: #### I PB, HFP, CHM7, MGO, CA ####[facility] (DEFAULT)[address] [place] [address] Bilirubin [Mass/Vol] 1.3 mg/dL Normal <1.5 [facility] Comment on above: Performed By: #### I PB, HFP, CHM7, MGO, CA ####[facility] (DEFAULT)[address] [facility] [place] [address] Bilirubin.indirect [Mass/Vol] 0.6 mg/dL High <0.3 [facility] Comment on above: Performed By: #### I PB, HFP, CHM7, MGO, CA ####[facility] (DEFAULT)[address] [place] [address] Protein [Mass/Vol] 4.6 g/dL Low 6.4-8.3 [facility] Comment on above: Performed By: #### I PB, HFP, CHM7, MGO, CA ####[facility] (DEFAULT)[address] [place] [address] IONIZED CALCIUM, WHOLE BLOOD on 06-08-2024 ICA 4.20 mg/dL Low 4.60-5.30 [facility] Comment on above: Performed By: #### I CA ####[facility] (DEFAULT)[address] [place] [address] LACTATE, BLOODon 06-08-2024 Lactate, Blood 1.0 mmol/L Normal 0.5-1.6 [facility] Comment on above: Performed By: #### L ACT ####[facility] (DEFAULT)[address] [place] [address] MAGNESIUMon 06-08-2024 Magnesium [Mass/Vol] 1.4 mg/dL Low 1.6-2.6 [facility] Comment on above: Performed By: #### I PB, HFP, CHM7, MGO, CA ####[facility] (DEFAULT)[address] [place] [address] PHOSPHATE, INORGANICon 06-08 Phosphorous 1.5 mg/dL Low 2.2-4.6 [facility] Comment on above: Performed By: #### I PB, HFP, CHM7, MGO, CA ####[facility] (DEFAULT[facility] [place] [address] PT,INR,PTTon 06-08-2024 aPTT Coag (Bld) [Time] 29.3 s Normal 24.0-34.3 [facility] Comment on above: Performed By: #### P TPTT ####[facility] (DEFAULT)[address] [facility] [place] [address] INR Coag (PPP) [Relative time] 1.1 {INR} Normal 0.9-1.1 [facility] Comment on above: Performed By: #### P TPTT ####[facility] (DEFAULT)[address] [facility] [place] [address] PT Coag (PPP) [Time] 14.6 s High 11.9-14.2 [facility] Comment on above: Performed By: #### P TPTT ####[facility] (DEFAULT)[address] [place] [address] TACROLIMUS LEVEL, TROUGH (PA E DRUG LEVEL)on 06-08-2024 Tacrolimus, Trough 7.9 ng/mL Normal Bone Veronique ow Transplant: 5.0-15.0 Kidney/Pancre atic Transplant: 0 to 3 months: 8.0-10.0, 3 to 12 months: 6.0-8.0, >12 months: 4.0-6.0 [facility] Comment on above: Order Comment: Pleas e draw at specified interval PRIOR to dose. Do not hold dose to wait for level. Specimens batched twice per day, (M-F) and once per day weekendsMethod performed is a chemiluminescent microparticle immunoasssay on the [employer] Maintainer i2000.The range is based on experience at [employer] and users should be aware that target concentrations vary widely depending on concomitant therapy, time post-transplant, and desired degree of immunosuppression. Performed By: #### T ACRO ####[facility] (DEFAULT)[address] [facility] [place] [address] CALCIUMon 06-07-2024 Calcium [Mass/Vol] 8.0 mg/dL Low 8.6-10.5 [facility] Comment on above: Performed By: #### I PB, HFP, CHM7, MGO, CA ####[facility] (DEFAULT)[address] [facility] [place] [address] CBC,PLATELETSon 06-07-2024 Hematocrit (Bld) [Volume fraction] 32.4 % Low 39.6-48.8 [facility] Comment on above: Performed By: #### H EMOGC ####[facility] (DEFAULT)[address] [place] [address] Hemoglobin (Bld) [Mass/Vol] 10.7 g/dL Low 13.4-16.8 [facility] Comment on above: Performed By: #### H EMOGC ####[facility] (DEFAULT)[address] [place] [address] MCV (RBC) [Entitic vol] 92.6 fL Normal 79.0-94.5 [facility] Comment on above: Performed By: #### H EMOGC ####[facility] (DEFAULT)[address] [place] [address] Mean Cell Hgb 30.6 pg Normal 26.1-33.3 [facility] Comment on above: Performed By: #### H EMOGC ####[facility] (DEFAULT)[address] [place] [address] Mean Cell Hgb Conc 33.0 g/dL Normal 31.9-36.5 [facility] Comment on above: Performed By: #### H EMOGC ####[facility] (DEFAULT)[address] [place] [address] Platelet mean volume (Bld) [Entitic vol] 12.6 fL High 8.7-12.3 [facility] Comment on above: Performed By: #### H EMO ####[facility] (DEFAULT)[address] [facility] [place] [address] Platelets (Bld) [#/Vol] 68 10*3/uL Low 146-337 [facility] Comment on above: Performed By: #### H EMO ####[facility] (DEFAULT)[address] [place] [address] RBC (Bld) [#/Vol] 3.50 10*6/uL Low 4.38-5.83 [facility] Comment on above: Performed By: #### H EMO ####[facility] (DEFAULT)[address] [facility] [place] [address] RBC Distribution 15.7 % High 10.9-14.3 [facility] Comment on above: Performed By: #### H EMO ####[facility] (DEFAULT)[address] [place] [address] WBC (Bld) [#/Vol] 10.18 10*3/uL High 3.73-10.10 [facility] Comment on above: Performed By: #### H EMO ####[facility] (DEFAULT)[address] [place] [address] CHEM 7 (LYTES,BUN,CREA,GLUC) on 06-07-2024 Anion gap [Moles/Vol] 13 mmol/L Normal 7-[address] [facility] Comment on above: Performed By: #### I PB, HFP, CHM7, MGO, CA ####[facility] (DEFAULT)[address] [place] [address] Chloride [Moles/Vol] 105 mmol/L Normal 98-108 [facility] Comment on above: Performed By: #### I PB, HFP, CHM7, MGO, CA ####[facility] (DEFAULT)[address] [facility] [place] [address] CO2 [Moles/Vol] 24 mmol/L Normal 21-31 [facility] Comment on above: Performed By: #### I PB, HFP, CHM7, MGO, CA ####[facility] (DEFAULT)[address] [place] [address] Creatinine [Mass/Vol] 0.82 mg/dL Normal 0.70-1.30 [facility] Comment on above: Performed By: #### I PB, HFP, CHM7, MGO, CA ####[facility] (DEFAULT)[address] [facility] [place] [address] eGFR, CKD-EPI, Male > Normal >=60 [facility] Comment on above: Result Comment: Repo rted eGFR is based on the CKD-EPI 2020 equation using creatinine, age, and sex. Performed By: #### I PB, HFP, CHM7, MGO, CA ####[facility] (DEFAULT)[address] [facility] [place] [address] Glucose [Mass/Vol] 106 mg/dL Normal Nonfastin -179 mg/dL; Fastin-99 [facility] Comment on above: Performed By: #### I PB, HFP, CHM7, MGO, CA ####[facility] (DEFAULT)[address] [place] [address], [place] [address] Osmolality [Osmolality] 298 mosm/kg Normal 278-305 [facility] Comment on above: Performed By: #### I PB, HFP, CHM7, MGO, CA ####[facility] (DEFAULT)[address] [facility] [place] [address] Potassium [Moles/Vol] 4.1 mmol/L Normal 3.5-5.0 [facility] Comment on above: Performed By: #### I PB, HFP, CHM7, MGO, CA ####[facility] (DEFAULT)[address] [place] [address] Sodium [Moles/Vol] 138 mmol/L Normal 135-145 [facility] Comment on above: Performed By: #### I PB, HFP, CHM7, MGO, CA ####[facility] (DEFAULT)[address] [place] [address] Urea nitrogen [Mass/Vol] 35 mg/dL High 7-25 [facility] Comment on above: Performed By: #### I PB, HFP, CHM7, MGO, CA ####[facility] (DEFAULT)[address] [facility] [place] [address] Urea nitrogen/Creatinine [Mass ratio] 43 mg/mg Normal [facility] Comment on above: Performed By: #### I PB, HFP, CHM7, MGO, CA ####[facility] (DEFAULT)[address] [place] [address] HEPATIC FUNCTION PANELon Albumin [Mass/Vol] 3.0 g/dL Low 3.5-5.0 [facility] Comment on above: Performed By: #### I PB, HFP, CHM7, MGO, CA ####[facility] (DEFAULT)[address] [place] [address] ALP [Catalytic activity/Vol] 108 U/L Normal 32-126 [facility] Comment on above: Performed By: #### I PB, HFP, CHM7, MGO, CA ####[facility] (DEFAULT)[address] [place] [address] ALT [Catalytic activity/Vol] 30 U/L Normal 10-52 [facility] Comment on above: Performed By: #### I PB, HFP, CHM7, MGO, CA ####[facility] (DEFAULT)[address] [place] [address] AST [Catalytic activity/Vol] 20 U/L Normal 10-39 [facility] Comment on above: Performed By: #### I PB, HFP, CHM7, MGO, CA ####[facility] (DEFAULT)[address] [place] [address] Bilirubin [Mass/Vol] 1.5 mg/dL High <1.5 [facility] Comment on above: Performed By: #### I PB, HFP, CHM7, MGO, CA ####[facility] (DEFAULT)[address] [place] [address] Bilirubin.indirect [Mass/Vol] 0.6 mg/dL High <0.3 [facility] Comment on above: Performed By: #### I PB, HFP, CHM7, MGO, CA ####[facility] (DEFAULT)[address] [place] [address] Protein [Mass/Vol] 4.8 g/dL Low 6.4-8.3 [facility] Comment on above: Performed By: #### I PB, HFP, CHM7, MGO, CA ####[facility] (DEFAULT)[address] [place] [address] IONIZED CALCIUM, WHOLE BLOOD on 06-07-2024 ICA 4.38 mg/dL Low 4.60-5.30 [facility] Comment on above: Performed By: #### I CA ####[facility] (DEFAULT)[address] [place] [address] LACTATE, BLOODon 06-07-2024 Lactate, Blood 1.0 mmol/L Normal 0.5-1.6 [facility] Comment on above: Performed By: #### L ACT ####[facility] (DEFAULT)[address] [place] [address] MAGNESIUMon 06-07-2024 Magnesium [Mass/Vol] 1.6 mg/dL Normal 1.6-2.6 [facility] Comment on above: Performed By: #### I PB, HFP, CHM7, MGO, CA ####[facility] (DEFAULT)[address] [place] [address] PHOSPHATE, INORGANICon 06-07 Phosphorous 1.8 mg/dL Low 2.2-4.6 [facility] Comment on above: Performed By: #### I PB, HFP, CHM7, MGO, CA ####[facility] (DEFAULT)[address] [facility] [place] [address] PT,INR,PTTon 06-07-2024 aPTT Coag (Bld) [Time] 29.5 s Normal 24.0-34.3 [facility] Comment on above: Performed By: #### P TPTT ####[facility] (DEFAULT)[address] [facility] [place] [address] INR Coag (PPP) [Relative time] 1.1 {INR} Normal 0.9-1.1 [facility] Comment on above: Performed By: #### P TPTT ####[facility] (DEFAULT)[address] [facility] [place] [address] PT Coag (PPP) [Time] 14.1 s Normal 11.9-14.2 [facility] Comment on above: Performed By: #### P TPTT ####[facility] (DEFAULT)[address] [place] [address] TACROLIMUS LEVEL, TROUGH (PA E DRUG LEVEL)on 06-07-2024 Tacrolimus, Trough 22.8 ng/mL Normal Bone Veronique ow Transplant: 5.0-15.0 Kidney/Pancre atic Transplant: 0 to 3 months: 8.0-10.0, 3 to 12 months: 6.0-8.0, >12 months: 4.0-6.0 [facility] Comment on above: Order Comment: Pleas e draw at specified interval PRIOR to dose. Do not hold dose to wait for level. Specimens batched twice per day, (M-F) and once per day weekendsMethod performed is a chemiluminescent microparticle immunoasssay on the [employer] i2000.The range is based on experience at [employer] and users should be aware that target concentrations vary widely depending on concomitant therapy, time post-transplant, and desired degree of immunosuppression. Performed By: #### T ACRO ####[facility] (DEFAULT)[address] [place] [address] CALCIUMon 06-06-2024 Calcium [Mass/Vol] 8.2 mg/dL Low 8.6-10.5 [facility] Comment on above: Performed By: #### I PB, HFP, CHM7, MGO, CA ####[facility] (DEFAULT)[address] [place] [address] CBC,PLATELETSon 06-06-2024 Hematocrit (Bld) [Volume fraction] 30.4 % Low 39.6-48.8 [facility] Comment on above: Performed By: #### H EMOGC ####[facility] (DEFAULT)[address] [place] [address], [place] [address] Hemoglobin (Bld) [Mass/Vol] 10.3 g/dL Low 13.4-16.8 [facility] Comment on above: Performed By: #### H EMOGC ####[facility] (DEFAULT)[address] [place] [address], [place] [address] MCV (RBC) [Entitic vol] 92.7 fL Normal 79.0-94.5 [facility] Comment on above: Performed By: #### H EMOGC ####[facility] (DEFAULT)[address] [place] [address] Mean Cell Hgb 31.4 pg Normal 26.1-33.3 [facility] Comment on above: Performed By: #### H EMOGC ####[facility] (DEFAULT)[address] [place] [address] Mean Cell Hgb Conc 33.9 g/dL Normal 31.9-36.5 [facility] Comment on above: Performed By: #### H EMOGC ####[facility] (DEFAULT)[address] [place] [address] Mean Platelet Volume Normal [facility] Comment on above: Result Comment: Not measured Performed By: #### H EMO ####[facility] (DEFAULT)[address] [place] [address] Platelets (Bld) [#/Vol] 74 10*3/uL Low 146-337 [facility] Comment on above: Performed By: #### H EMO ####[facility] (DEFAULT)[address] [facility] [place] [address] RBC (Bld) [#/Vol] 3.28 10*6/uL Low 4.38-5.83 [facility] Comment on above: Performed By: #### H EMO ####[facility] (DEFAULT)[address] [facility] [place] [address] RBC Distribution 16.1 % High 10.9-14.3 [facility] Comment on above: Performed By: #### H EMO ####[facility] (DEFAULT)[address] [facility] [place] [address] WBC (Bld) [#/Vol] 13.89 10*3/uL High 3.73-10.10 [facility] Comment on above: Performed By: #### H EMO ####[facility] (DEFAULT)[address] [place] [address] CHEM 7 (LYTES,BUN,CREA,GLUC) on 06-06-2024 Anion gap [Moles/Vol] 13 mmol/L Normal 7-[address] [facility] Comment on above: Performed By: #### I PB, HFP, CHM7, MGO, CA ####[facility] (DEFAULT)[address] [facility] [place] [address] Chloride [Moles/Vol] 104 mmol/L Normal 98-108 [facility] Comment on above: Performed By: #### I PB, HFP, CHM7, MGO, CA ####[facility] (DEFAULT)[address] [facility] [place] [address] CO2 [Moles/Vol] 25 mmol/L Normal 21-31 [facility] Comment on above: Performed By: #### I PB, HFP, CHM7, MGO, CA ####[facility] (DEFAULT)[address] [place] [address] Creatinine [Mass/Vol] 1.10 mg/dL Normal 0.70-1.30 [facility] Comment on above: Performed By: #### I PB, HFP, CHM7, MGO, CA ####[facility] (DEFAULT)[address] [place] [address] GFR/1.73 sq M.predicted among non-blacks MDRD (S/P/Bld) [Vol rate/Area] 77 mL/min/{1.73_m2} Normal >=60 [facility] Comment on above: Result Comment: Repo rted eGFR is based on the CKD-EPI 2020 equation using creatinine, age, and sex. Performed By: #### I PB, HFP, CHM7, MGO, CA ####[facility] (DEFAULT)[address] [place] [address] Glucose [Mass/Vol] 87 mg/dL Normal Nonfastin -179 mg/dL; Fastin-99 [facility] Comment on above: Performed By: #### I PB, HFP, CHM7, MGO, CA ####[facility] (DEFAULT)[address] [facility] [place] [address] Osmolality [Osmolality] 298 mosm/kg Normal 278-305 [facility] Comment on above: Performed By: #### I PB, HFP, CHM7, MGO, CA ####[facility] (DEFAULT)[address] [facility] [place] [address] Potassium [Moles/Vol] 3.9 mmol/L Normal 3.5-5.0 [facility] Comment on above: Performed By: #### I PB, HFP, CHM7, MGO, CA ####[facility] (DEFAULT)[address] [facility] [place] [address] Sodium [Moles/Vol] 138 mmol/L Normal 135-145 [facility] Comment on above: Performed By: #### I PB, HFP, CHM7, MGO, CA ####[facility] (DEFAULT)[address] [place] [address] Urea nitrogen [Mass/Vol] 40 mg/dL High 7-25 [facility] Comment on above: Performed By: #### I PB, HFP, CHM7, MGO, CA ####[facility] (DEFAULT)[address] [facility] [place] [address] Urea nitrogen/Creatinine [Mass ratio] 36 mg/mg Normal [facility] Comment on above: Performed By: #### I PB, HFP, CHM7, MGO, CA ####[facility] (DEFAULT)[address] [facility] [place] [address] HEPATIC FUNCTION PANELon Albumin [Mass/Vol] 3.1 g/dL Low 3.5-5.0 [facility] Comment on above: Performed By: #### I PB, HFP, CHM7, MGO, CA ####[facility] (DEFAULT)[address] [facility] [place] [address] ALP [Catalytic activity/Vol] 107 U/L Normal 32-126 [facility] Comment on above: Performed By: #### I PB, HFP, CHM7, MGO, CA ####[facility] (DEFAULT)[address] [facility] [place] [address] ALT [Catalytic activity/Vol] 39 U/L Normal 10-52 [facility] Comment on above: Performed By: #### I PB, HFP, CHM7, MGO, CA ####[facility] (DEFAULT)[address] [place] [address] AST [Catalytic activity/Vol] 27 U/L Normal 10-39 [facility] Comment on above: Performed By: #### I PB, HFP, CHM7, MGO, CA ####[facility] (DEFAULT)[address] [place] [address] Bilirubin [Mass/Vol] 1.8 mg/dL High <1.5 [facility] Comment on above: Performed By: #### I PB, HFP, CHM7, MGO, CA ####[facility] (DEFAULT)[address] [place] [address] Bilirubin.indirect [Mass/Vol] 0.8 mg/dL High <0.3 [facility] Comment on above: Performed By: #### I PB, HFP, CHM7, MGO, CA ####[facility] (DEFAULT)[address] [place] [address] Protein [Mass/Vol] 4.9 g/dL Low 6.4-8.3 [facility] Comment on above: Performed By: #### I PB, HFP, CHM7, MGO, CA ####[facility] (DEFAULT)[address] [place] [address] IONIZED CALCIUM, WHOLE BLOOD on 06-06-2024 ICA 3.90 mg/dL Low 4.60-5.30 [facility] Comment on above: Performed By: #### I CA ####[facility] (DEFAULT)[address] [place] [address] LACTATE, BLOODon 06-06-2024 Lactate, Blood 1.1 mmol/L Normal 0.5-1.6 [facility] Comment on above: Performed By: #### L ACT ####[facility] (DEFAULT)[address] [place] [address] MAGNESIUMon 06-06-2024 Magnesium [Mass/Vol] 1.8 mg/dL Normal 1.6-2.6 [facility] Comment on above: Performed By: #### I PB, HFP, CHM7, MGO, CA ####[facility] (DEFAULT)[address] [facility] [place] [address] PHOSPHATE, INORGANICon 06-06 Phosphorous 2.4 mg/dL Normal 2.2-4.6 [facility] Comment on above: Performed By: #### I PB, HFP, CHM7, MGO, CA ####[facility] (DEFAULT)[address] [facility] [place] [address] PT,INR,PTTon 06-06-2024 aPTT Coag (Bld) [Time] 30.6 s Normal 24.0-34.3 [facility] Comment on above: Performed By: #### P TPTT ####[facility] (DEFAULT)[address] [facility] [place] [address] INR Coag (PPP) [Relative time] 1.1 {INR} Normal 0.9-1.1 [facility] Comment on above: Performed By: #### P TPTT ####[facility] (DEFAULT)[address] [facility] [place] [address] PT Coag (PPP) [Time] 14.5 s High 11.9-14.2 [facility] Comment on above: Performed By: #### P TPTT ####[facility] (DEFAULT)[address] [place] [address] TACROLIMUS LEVEL, TROUGH (PA E DRUG LEVEL)on 06-06-2024 Tacrolimus, Trough 5.6 ng/mL Normal Bone Veronique ow Transplant: 5.0-15.0 Kidney/Pancre atic Transplant: 0 to 3 months: 8.0-10.0, 3 to 12 months: 6.0-8.0, >12 months: 4.0-6.0 [facility] Comment on above: Order Comment: Pleas e draw at specified interval PRIOR to dose. Do not hold dose to wait for level. Specimens batched twice per day, (M-F) and once per day weekendsMethod performed is a chemiluminescent microparticle immunoasssay on the [employer] Maintainer i2000.The range is based on experience at [facility] and users should be aware that target concentrations vary widely depending on concomitant therapy, time post-transplant, and desired degree of immunosuppression. Performed By: #### T ACRO ####[facility] (DEFAULT)[address] [place] [address] CHEM 7 (LYTES,BUN,CREA,GLUC) on 06-05-2024 Anion gap [Moles/Vol] 16 mmol/L Normal 7-17 [facility] Comment on above: Performed By: #### C HM7 ####[facility] (DEFAULT)[address] [place] [address] Chloride [Moles/Vol] 103 mmol/L Normal 98-108 [facility] Comment on above: Performed By: #### C HM7 ####[facility] (DEFAULT)[address] [place] [address], [place] [address] CO2 [Moles/Vol] 22 mmol/L Normal 21-31 [facility] Comment on above: Performed By: #### C HM7 ####[facility] (DEFAULT)[address] [place] [address] Creatinine [Mass/Vol] 1.13 mg/dL Normal 0.70-1.30 [facility] Comment on above: Performed By: #### C HM7 ####[facility] (DEFAULT)[address] [place] [address] GFR/1.73 sq M.predicted among non-blacks MDRD (S/P/Bld) [Vol rate/Area] 75 mL/min/{1.73_m2} Normal >=60 [facility] Comment on above: Result Comment: Repo rted eGFR is based on the CKD-EPI 2020 equation using creatinine, age, and sex. Performed By: #### C HM7 ####[facility] (DEFAULT)[address] [place] [address] Glucose [Mass/Vol] 113 mg/dL Normal Nonfastin -179 mg/dL; Fastin-99 [facility] Comment on above: Performed By: #### C HM7 ####[facility] (DEFAULT)[address] [place] [address] Osmolality [Osmolality] 297 mosm/kg Normal 278-305 [facility] Comment on above: Performed By: #### C HM7 ####[facility] (DEFAULT)[address] [place] [address] Potassium [Moles/Vol] 3.8 mmol/L Normal 3.5-5.0 [facility] Comment on above: Performed By: #### C HM7 ####[facility] (DEFAULT)[address] [place] [address] Sodium [Moles/Vol] 137 mmol/L Normal 135-145 [facility] Comment on above: Performed By: #### C HM7 ####[facility] (DEFAULT)[address] [place] [address] Urea nitrogen [Mass/Vol] 38 mg/dL High 7-25 [facility] Comment on above: Performed By: #### C HM7 ####[facility] (DEFAULT)[address] [facility] [place] [address] Urea nitrogen/Creatinine [Mass ratio] 34 mg/mg Normal [facility] Comment on above: Performed By: #### C HM7 ####[facility] (DEFAULT)[address] [facility] [place] [address] TACROLIMUS LEVEL, TROUGH (PA E DRUG LEVEL)on 06-05-2024 Tacrolimus, Trough 5.8 ng/mL Normal Bone Veronique ow Transplant: 5.0-15.0 Kidney/Pancre atic Transplant: 0 to 3 months: 8.0-10.0, 3 to 12 months: 6.0-8.0, >12 months: 4.0-6.0 [facility] Comment on above: Order Comment: Pleas e draw at specified interval PRIOR to dose. Do not hold dose to wait for level. Specimens batched twice per day, (M-F) and once per day weekendsMethod performed is a chemiluminescent microparticle immunoasssay on the [employer]aintainer i2000.The range is based on experience at [facility] and users should be aware that target concentrations vary widely depending on concomitant therapy, time post-transplant, and desired degree of immunosuppression. Performed By: #### T ACRO ####[facility] (DEFAULT)[address] [facility] [place] [address] ARTERIAL BLOOD GAS PLUS LACT ATEon 06-04-2024 Base Excess -5.7 mmol/L Low -3.0-3.0 [facility] Comment on above: Performed By: #### G AS5L ####[facility] (DEFAULT)[address] [facility] [place] [address] FIO2 21 % Normal [facility] Comment on above: Performed By: #### G AS5L ####[facility] (DEFAULT)[address] [facility] [place] [address] HCO3 (Bld) [Moles/Vol] 19 mmol/L Low 22-28 [facility] Comment on above: Performed By: #### G AS5L ####[facility] (DEFAULT)[address] [facility] [place] [address] Lactate, Whole Blood 1.1 mmol/L Normal 0.5-1.6 [facility] Comment on above: Performed By: #### G AS5L ####[facility] (DEFAULT)[address] [facility] [place] [address] Oxygen saturation in Blood 97 % Normal 94-98 [facility] Comment on above: Performed By: #### G AS5L ####[facility] (DEFAULT)[address] [facility] [place] [address] pCO2 28 mm Hg Low 32-48 [facility] Comment on above: Performed By: #### G AS5L ####[facility] (DEFAULT)[address] [place] [address] PF Ratio 357 Normal [facility] Comment on above: Performed By: #### G AS5L ####[facility] (DEFAULT)[address] [place] [address] pH, Arterial 7.43 Normal 7.35-7.45 [facility] Comment on above: Performed By: #### G AS5L ####[facility] (DEFAULT)[address] [place] [address], [place] [address] pO2 75 mm Hg Low 83-108 [facility] Comment on above: Performed By: #### G AS5L ####[facility] (DEFAULT)[address] [place] [address], [place] [address] Specimen type Nom (Spec) Arterial Normal [facility] Comment on above: Performed By: #### G AS5L ####[facility] (DEFAULT)[address] [place] [address], [place] [address] CALCIUMon 06-04-2024 Calcium [Mass/Vol] 7.8 mg/dL Low 8.6-10.5 [facility] Comment on above: Performed By: #### C HM7, IPB, HFP, MGO, CA ####[facility] (DEFAULT)[address] [place] [address] Calcium [Mass/Vol] 7.7 mg/dL Low 8.6-10.5 [facility] Comment on above: Performed By: #### I PB, HFP, CHM7, PALB, MGO, CA ####[facility] (DEFAULT)[address] [place] [address], [place] [address] CBC,PLATELETSon 06-04-2024 Hematocrit (Bld) [Volume fraction] 26.6 % Low 39.6-48.8 [facility] Comment on above: Performed By: #### H EMOGC ####[facility] (DEFAULT)[address] [place] [address] Hemoglobin (Bld) [Mass/Vol] 9.3 g/dL Low 13.4-16.8 [facility] Comment on above: Performed By: #### H EMOGC ####[facility] (DEFAULT)[address] [facility] [place] [address] MCV (RBC) [Entitic vol] 89.0 fL Normal 79.0-94.5 [facility] Comment on above: Performed By: #### H EMOGC ####[facility] (DEFAULT)[address] [facility] [place] [address] Mean Cell Hgb 31.1 pg Normal 26.1-33.3 [facility] Comment on above: Performed By: #### H EMOGC ####[facility] (DEFAULT)[address] [facility] [place] [address] Mean Cell Hgb Conc 35.0 g/dL Normal 31.9-36.5 [facility] Comment on above: Performed By: #### H EMOGC ####[facility] (DEFAULT)[address] [facility] [place] [address] Platelet mean volume (Bld) [Entitic vol] 11.7 fL Normal 8.7-12.3 [facility] Comment on above: Performed By: #### H EMOGC ####[facility] (DEFAULT)[address] [facility] [place] [address] Platelets (Bld) [#/Vol] 92 10*3/uL Low 146-337 [facility] Comment on above: Performed By: #### H EMOGC ####[facility] (DEFAULT)[address] [facility] [place] [address] RBC (Bld) [#/Vol] 2.99 10*6/uL Low 4.38-5.83 [facility] Comment on above: Performed By: #### H EMOGC ####[facility] (DEFAULT)[address] [facility] [place] [address] RBC Distribution 15.8 % High 10.9-14.3 [facility] Comment on above: Performed By: #### H EMOGC ####[facility] (DEFAULT)[address] [facility] [place] [address] WBC (Bld) [#/Vol] 16.58 10*3/uL High 3.73-10.10 [facility] Comment on above: Performed By: #### H EMOGC ####[facility] (DEFAULT)[address] [facility] [place] [address] Hematocrit (Bld) [Volume fraction] 26.8 % Low 39.6-48.8 [facility] Comment on above: Performed By: #### H EMOGC ####[facility] (DEFAULT)[address] [facility] [place] [address] Hemoglobin (Bld) [Mass/Vol] 9.6 g/dL Low 13.4-16.8 [facility] Comment on above: Performed By: #### H EMOGC ####[facility] (DEFAULT)[address] [facility] [place] [address] MCV (RBC) [Entitic vol] 86.7 fL Normal 79.0-94.5 [facility] Comment on above: Performed By: #### H EMOGC ####[facility] (DEFAULT)[address] [facility] [place] [address] Mean Cell Hgb 31.1 pg Normal 26.1-33.3 [facility] Comment on above: Performed By: #### H EMOGC ####[facility] (DEFAULT)[address] [facility] [place] [address] Mean Cell Hgb Conc 35.8 g/dL Normal 31.9-36.5 [facility] Comment on above: Performed By: #### H EMOGC ####[facility] (DEFAULT)[address] [facility] [place] [address] Mean Platelet Volume Normal [facility] Comment on above: Result Comment: Not measured Performed By: #### H EMOGC ####[facility] (DEFAULT)[address] [place] [address] Platelets (Bld) [#/Vol] 90 10*3/uL Low 146-337 [facility] Comment on above: Result Comment: This is an appended report. These results have been appended to a previously preliminary verified report. Performed By: #### H EMOGC ####[facility] (DEFAULT)[address] [place] [address] RBC (Bld) [#/Vol] 3.09 10*6/uL Low 4.38-5.83 [facility] Comment on above: Performed By: #### H EMOGC ####[facility] (DEFAULT)[address] [facility] [place] [address] RBC Distribution 15.5 % High 10.9-14.3 [facility] Comment on above: Performed By: #### H EMOGC ####[facility] (DEFAULT)[address] [facility] [place] [address] WBC (Bld) [#/Vol] 18.02 10*3/uL High 3.73-10.10 [facility] Comment on above: Performed By: #### H EMOGC ####[facility] (DEFAULT)[address] [facility] [place] [address] Hematocrit (Bld) [Volume fraction] 19.8 % Low 39.6-48.8 [facility] Comment on above: Performed By: #### H EMOGC ####[facility] (DEFAULT)[address] [facility] [place] [address] Hemoglobin (Bld) [Mass/Vol] 6.8 g/dL Critically low 13.4-16.8 [facility] Comment on above: Result Comment: This result has been called to Cuate James RN by [email or web address] on 06/04/2024 01:00:11, and has been read back. Performed By: #### H EMOGC ####[facility] (DEFAULT)[address] [facility] [place] [address] MCV (RBC) [Entitic vol] 91.2 fL Normal 79.0-94.5 [facility] Comment on above: Performed By: #### H EMOGC ####[facility] (DEFAULT)[address] [facility] [place] [address] Mean Cell Hgb 31.3 pg Normal 26.1-33.3 [facility] Comment on above: Performed By: #### H EMOGC ####[facility] (DEFAULT)[address] [facility] [place] [address] Mean Cell Hgb Conc 34.3 g/dL Normal 31.9-36.5 [facility] Comment on above: Performed By: #### H EMOGC ####[facility] (DEFAULT)[address] [facility] [place] [address] Platelet mean volume (Bld) [Entitic vol] 12.3 fL Normal 8.7-12.3 [facility] Comment on above: Performed By: #### H EMOGC ####[facility] (DEFAULT)[address] [facility] [place] [address] Platelets (Bld) [#/Vol] 108 10*3/uL Low 146-337 [facility] Comment on above: Performed By: #### H EMOGC ####[facility] (DEFAULT)[address] [facility] [place] [address] RBC (Bld) [#/Vol] 2.17 10*6/uL Low 4.38-5.83 [facility] Comment on above: Performed By: #### H EMOGC ####[facility] (DEFAULT)[address] [facility] [place] [address] RBC Distribution 15.9 % High 10.9-14.3 [facility] Comment on above: Performed By: #### H EMOGC ####[facility] (DEFAULT)[address] [facility] [place] [address] WBC (Bld) [#/Vol] 18.98 10*3/uL High 3.73-10.10 [facility] Comment on above: Performed By: #### H [facility] ####[facility] (DEFAULT)[address] [facility] [place] [address] CHEM 7 (LYTES,BUN,CREA,GLUC) on 06-04-2024 Anion gap [Moles/Vol] 14 mmol/L Normal 7-17 [facility] Comment on above: Performed By: #### C HM7, IPB, HFP, MGO, CA ####[facility] (DEFAULT)[address] [facility] [place] [address] Chloride [Moles/Vol] 107 mmol/L Normal 98-108 [facility] Comment on above: Performed By: #### C HM7, IPB, HFP, MGO, CA ####[facility] (DEFAULT)[address] [facility] [place] [address] CO2 [Moles/Vol] 20 mmol/L Low 21-31 [facility] Comment on above: Performed By: #### C HM7, IPB, HFP, MGO, CA ####[facility] (DEFAULT)[address] [place] [address] Creatinine [Mass/Vol] 1.24 mg/dL Normal 0.70-1.30 [facility] Comment on above: Performed By: #### C HM7, IPB, HFP, MGO, CA ####[facility] (DEFAULT)[address] [place] [address] GFR/1.73 sq M.predicted among non-blacks MDRD (S/P/Bld) [Vol rate/Area] 67 mL/min/{1.73_m2} Normal >=60 [facility] Comment on above: Result Comment: Repo rted eGFR is based on the CKD-EPI 2021 equation using creatinine, age, and sex. Performed By: #### C HM7, IPB, HFP, MGO, CA ####[facility] (DEFAULT)[address] [facility] [place] [address] Glucose [Mass/Vol] 92 mg/dL Normal Nonfastin -179 mg/dL; Fastin-99 [facility] Comment on above: Performed By: #### C HM7, IPB, HFP, MGO, CA ####[facility] (DEFAULT)[address] [facility] [place] [address] Osmolality [Osmolality] 296 mosm/kg Normal 278-305 [facility] Comment on above: Performed By: #### C HM7, IPB, HFP, MGO, CA ####[facility] (DEFAULT)[address] [facility] [place] [address] Potassium [Moles/Vol] 3.1 mmol/L Low 3.5-5.0 [facility] Comment on above: Performed By: #### C HM7, IPB, HFP, MGO, CA ####[facility] (DEFAULT)[address] [facility] [place] [address] Sodium [Moles/Vol] 138 mmol/L Normal 135-145 [facility] Comment on above: Performed By: #### C HM7, IPB, HFP, MGO, CA ####[facility] (DEFAULT)[address] [facility] [place] [address] Urea nitrogen [Mass/Vol] 37 mg/dL High 7-25 [facility] Comment on above: Performed By: #### C HM7, IPB, HFP, MGO, CA ####[facility] (DEFAULT)[address] [facility] [place] [address] Urea nitrogen/Creatinine [Mass ratio] 30 mg/mg Normal [facility] Comment on above: Performed By: #### C HM7, IPB, HFP, MGO, CA ####[facility] (DEFAULT)[address] [facility] [place] [address] Anion gap [Moles/Vol] 15 mmol/L Normal 7-17 [facility] Comment on above: Performed By: #### I PB, HFP, CHM7, PALB, MGO, CA ####[facility] (DEFAULT)[address] [place] [address] Chloride [Moles/Vol] 106 mmol/L Normal 98-108 [facility] Comment on above: Performed By: #### I PB, HFP, CHM7, PALB, MGO, CA ####[facility] (DEFAULT)[address] [facility] [place] [place] [address] CO2 [Moles/Vol] 19 mmol/L Low 21-31 [facility] Comment on above: Performed By: #### I PB, HFP, CHM7, PALB, MGO, CA ####[facility] (DEFAULT)[address] [place] [address] Creatinine [Mass/Vol] 1.29 mg/dL Normal 0.70-1.30 [facility] Comment on above: Performed By: #### I PB, HFP, CHM7, PALB, MGO, CA ####[facility] (DEFAULT)[address] [facility] [place] [place] [address] GFR/1.73 sq M.predicted among non-blacks MDRD (S/P/Bld) [Vol rate/Area] 64 mL/min/{1.73_m2} Normal >=60 [facility] Comment on above: Result Comment: Repo rted eGFR is based on the CKD-EPI 2020 equation using creatinine, age, and sex. Performed By: #### I PB, HFP, CHM7, PALB, MGO, CA ####[facility] (DEFAULT)[address] [place] [address] Glucose [Mass/Vol] 98 mg/dL Normal Nonfastin -179 mg/dL; Fastin-99 [facility] Comment on above: Performed By: #### I PB, HFP, CHM7, PALB, MGO, CA ####[facility] (DEFAULT)[address] [place] [address] Osmolality [Osmolality] 294 mosm/kg Normal 278-305 [facility] Comment on above: Performed By: #### I PB, HFP, CHM7, PALB, MGO, CA ####[facility] (DEFAULT)[address] [place] [address] Potassium [Moles/Vol] 4.1 mmol/L Normal 3.5-5.0 [facility] Comment on above: Performed By: #### I PB, HFP, CHM7, PALB, MGO, CA ####[facility] (DEFAULT)[address] [facility] [place] [address] Sodium [Moles/Vol] 136 mmol/L Normal 135-145 [facility] Comment on above: Performed By: #### I PB, HFP, CHM7, PALB, MGO, CA ####[facility] (DEFAULT)[address] [facility] [place] [address] Urea nitrogen [Mass/Vol] 38 mg/dL High 7-25 [facility] Comment on above: Performed By: #### I PB, HFP, CHM7, PALB, MGO, CA ####[facility] (DEFAULT)[address] [facility] [place] [address] Urea nitrogen/Creatinine [Mass ratio] 29 mg/mg Normal [facility] Comment on above: Performed By: #### I PB, HFP, CHM7, PALB, MGO, CA ####[facility] (DEFAULT)[address] [facility] [place] [address] HEPATIC FUNCTION PANELon Albumin [Mass/Vol] 2.7 g/dL Low 3.5-5.0 [facility] Comment on above: Performed By: #### C HM7, IPB, HFP, MGO, CA ####[facility] (DEFAULT)[address] [place] [address] ALP [Catalytic activity/Vol] 98 U/L Normal 32-126 [facility] Comment on above: Performed By: #### C HM7, IPB, HFP, MGO, CA ####[facility] (DEFAULT)[address] [place] [address] ALT [Catalytic activity/Vol] 52 U/L Normal 10-52 [facility] Comment on above: Performed By: #### C HM7, IPB, HFP, MGO, CA ####[facility] (DEFAULT)[address] [place] [address] AST [Catalytic activity/Vol] 50 U/L High 10-39 [facility] Comment on above: Performed By: #### C HM7, IPB, HFP, MGO, CA ####[facility] (DEFAULT)[address] [place] [address] Bilirubin [Mass/Vol] 2.1 mg/dL High <1.5 [facility] Comment on above: Performed By: #### C HM7, IPB, HFP, MGO, CA ####[facility] (DEFAULT)[address] [place] [address] Bilirubin.indirect [Mass/Vol] 1.1 mg/dL High <0.3 [facility] Comment on above: Performed By: #### C HM7, IPB, HFP, MGO, CA ####[facility] (DEFAULT)[address] [place] [address] Protein [Mass/Vol] 4.4 g/dL Low 6.4-8.3 [facility] Comment on above: Performed By: #### C HM7, IPB, HFP, MGO, CA ####[facility] (DEFAULT)[address] [place] [address] Albumin [Mass/Vol] 2.8 g/dL Low 3.5-5.0 [facility] Comment on above: Performed By: #### I PB, HFP, CHM7, PALB, MGO, CA ####[facility] (DEFAULT)[address] [place] [address] ALP [Catalytic activity/Vol] 86 U/L Normal 32-126 [facility] Comment on above: Performed By: #### I PB, HFP, CHM7, PALB, MGO, CA ####[facility] (DEFAULT)[address] [place] [address] ALT [Catalytic activity/Vol] 79 U/L High 10-52 [facility] Comment on above: Performed By: #### I PB, HFP, CHM7, PALB, MGO, CA ####[facility] (DEFAULT)[address] [place] [address] AST [Catalytic activity/Vol] 151 U/L High 10-39 [facility] Comment on above: Performed By: #### I PB, HFP, CHM7, PALB, MGO, CA ####[facility] (DEFAULT)[address] [place] [address] Bilirubin [Mass/Vol] 2.8 mg/dL High <1.5 [facility] Comment on above: Performed By: #### I PB, HFP, CHM7, PALB, MGO, CA ####[facility] (DEFAULT)[address] [place] [address] Bilirubin.indirect [Mass/Vol] 1.7 mg/dL High <0.3 [facility] Comment on above: Performed By: #### I PB, HFP, CHM7, PALB, MGO, CA ####[facility] (DEFAULT)[address] [place] [address] Protein [Mass/Vol] 3.8 g/dL Low 6.4-8.3 [facility] Comment on above: Performed By: #### I PB, HFP, CHM7, PALB, MGO, CA ####[facility] (DEFAULT)[address] [place] [address] IONIZED CALCIUM, WHOLE BLOOD on 06-04-2024 ICA 4.30 mg/dL Low 4.60-5.30 [facility] Comment on above: Performed By: #### I CA ####[facility] (DEFAULT)[address] [place] [address] ICA 4.28 mg/dL Low 4.60-5.30 [facility] Comment on above: Performed By: #### I CA ####[facility] (DEFAULT)[address] [place] [address] LACTATE, BLOODon 06-04-2024 Lactate, Blood 0.8 mmol/L Normal 0.5-1.6 [facility] Comment on above: Performed By: #### L ACT ####[facility] (DEFAULT)[address] [place] [address] Lactate, Blood 1.2 mmol/L Normal 0.5-1.6 [facility] Comment on above: Performed By: #### L ACT ####[facility] (DEFAULT)[address] [place] [address] MAGNESIUMon 06-04-2024 Magnesium [Mass/Vol] 2.2 mg/dL Normal 1.6-2.6 [facility] Comment on above: Performed By: #### C HM7, IPB, HFP, MGO, CA ####[facility] (DEFAULT)[address] [place] [address] Magnesium [Mass/Vol] 2.0 mg/dL Normal 1.6-2.6 [facility] Comment on above: Performed By: #### I PB, HFP, CHM7, PALB, MGO, CA ####[facility] (DEFAULT)[address] [place] [address] PHOSPHATE, INORGANICon 06-04 Phosphorous 2.9 mg/dL Normal 2.2-4.6 [facility] Comment on above: Performed By: #### C HM7, IPB, HFP, MGO, CA ####[facility] (DEFAULT)[address] [place] [address] Phosphorous 3.6 mg/dL Normal 2.2-4.6 [facility] Comment on above: Performed By: #### I PB, HFP, CHM7, PALB, MGO, CA ####[facility] (DEFAULT)[address] [place] [address] PREALBUMINon 06-04-2024 Prealbumin [Mass/Vol] 7 mg/dL Low 17-[address] [facility] Comment on above: Performed By: #### I PB, HFP, CHM7, PALB, MGO, CA ####[facility] (DEFAULT)[address] [place] [address] PT,INR,PTTon 06-04-2024 aPTT Coag (Bld) [Time] 33.6 s Normal 24.0-34.3 [facility] Comment on above: Performed By: #### P TPTT ####[facility] (DEFAULT)[address] [place] [address] INR Coag (PPP) [Relative time] 1.4 {INR} High 0.9-1.1 [facility] Comment on above: Performed By: #### P TPTT ####[facility] (DEFAULT)[address] [place] [address] PT Coag (PPP) [Time] 17.5 s High 11.9-14.2 [facility] Comment on above: Performed By: #### P TPTT ####[facility] (DEFAULT)[address] [place] [address] aPTT Coag (Bld) [Time] 39.2 s High 24.0-34.3 [facility] Comment on above: Performed By: #### P TPTT ####[facility] (DEFAULT)[address] [facility] [place] [address] INR Coag (PPP) [Relative time] 2.0 {INR} High 0.9-1.1 [facility] Comment on above: Performed By: #### P TPTT ####[facility] (DEFAULT)[address] [place] [address] PT Coag (PPP) [Time] 22.4 s High 11.9-14.2 [facility] Comment on above: Performed By: #### P TPTT ####[facility] (DEFAULT)[address] [place] [address], [place] [address] TACROLIMUS LEVEL, TROUGH (PA E DRUG LEVEL)on 06-04-2024 Tacrolimus, Trough 7.4 ng/mL Normal Bone Veronique ow Transplant: 5.0-15.0 Kidney/Pancre atic Transplant: 0 to 3 months: 8.0-10.0, 3 to 12 months: 6.0-8.0, >12 months: 4.0-6.0 [facility] Comment on above: Order Comment: Pleas e draw at specified interval PRIOR to dose. Do not hold dose to wait for level. Specimens batched twice per day, (M-F) and once per day weekendsMethod performed is a chemiluminescent microparticle immunoasssay on the [employer]ainer i2000.The range is based on experience at [facility] and users should be aware that target concentrations vary widely depending on concomitant therapy, time post-transplant, and desired degree of immunosuppression. Performed By: #### T ACRO ####[facility] (DEFAULT)[address] [place] [address] URINE CULTUREon 06-04-2024 Bacteria identified Cx Nom (U) No Growth Normal [facility] Comment on above: Order Comment: For i ndwelling catheters, specimen collection is acceptable on catheter day 1 and 2 only. Dumont top vacutainer. Urine must be to the fill line to process (4mls). If minimum volume, send urine in a yellow top vacutainer tube. Performed By: #### U R ####[facility] (DEFAULT)[address] [facility] [place] [address] ACID FAST CULTUREon 06-04-19 25 Bacteria identified Cx Nom (Unsp spec) NO GROWTH DAY 42 OF 42 Normal [facility] Comment on above: Performed By: #### A FB ####[facility] (DEFAULT)[address] [place] [address] Fluorochrome Stain No acid Fast Bacillu s Seen Normal [facility] Comment on above: Performed By: #### A FB ####[facility] (DEFAULT)[address] [place] [address], [place] [address] ANAEROBE CULTUREon 5 Bacteria identified Cx Nom (Unsp spec) No anaerobic growth Normal [facility] Comment on above: Order Comment: Colle ct fluids or tissues in a sterile container. If collecting swabs, must be collected in a Port-A-Cul tube. Performed By: #### A IMCHAELA ####[facility] (DEFAULT)[address] [place] [address], [place] [address] ARTERIAL BLOOD GAS (FULL SADLER EL)on 06-03-2024 Base Excess -5.9 mmol/L Low -3.0-3.0 [facility] Comment on above: Performed By: #### G DREAD ####[facility] (DEFAULT)[address] [place] [address], [place] [address] Carboxyhemoglobin 1.7 % High <=1.5 [facility] Comment on above: Performed By: #### G DREAD ####[facility] (DEFAULT)[address] [place] [address], [place] [address] FIO2 Normal [facility] Comment on above: Result Comment: 2L N C Performed By: #### G DREAD ####[facility] (DEFAULT)[address] [facility] [place] [address] Glucose [Mass/Vol] 111 mg/dL Normal Nonfastin g Glucose: 70-179 [facility] Comment on above: Performed By: #### Jhon [place] ####[facility] (DEFAULT)[address] [place] [address], [place] [address] HCO3 (Bld) [Moles/Vol] 18 mmol/L Low 22-28 [facility] Comment on above: Performed By: #### Jhon [place] ####[facility] (DEFAULT)[address] [place] [address], [place] [address] Hematocrit (Bld) [Volume fraction] 24 % Low 40-50 [facility] Comment on above: Performed By: #### Jhon [place] ####[facility] (DEFAULT)[address] [place] [address], [place] [address] Hemoglobin (Bld) [Mass/Vol] 8.0 g/dL Low 13.4-16.8 [facility] Comment on above: Performed By: ###Lowell [place] ####[facility] (DEFAULT)[address] [place] [address], [place] [address] Ionized Calcium, Whole Blood 4.79 mg/dL Normal 4.60-5.30 [facility] Comment on above: Performed By: #### Jhon [place] ####[facility] (DEFAULT)[address] [place] [address], [place] [address] Lactate, Whole Blood 1.6 mmol/L Normal 0.5-1.6 [facility] Comment on above: Performed By: #### Jhon [place] ####[facility] (DEFAULT)[address] [place] [address], [place] [address] Methemoglobin 0.8 % Normal <=1.5 [facility] Comment on above: Performed By: #### Jhon [place] ####[facility] (DEFAULT)[address] [place] [address], [place] [address] Oxygen saturation in Blood 97 % Normal 94-98 [facility] Comment on above: Performed By: #### Jhon [place] ####[facility] (DEFAULT)[address] [place], [place] [address], [place] [address] Oxyhemoglobin 94 % Normal 94-98 [facility] Comment on above: Performed By: #### Jhon [place] ####[facility] (DEFAULT)[address] [facility] [place] [address] pCO2 26 mm Hg Low 32-48 [facility] Comment on above: Performed By: #### Jhon [place] ####[facility] (DEFAULT)[address] [facility] [place] [address] pH, Arterial 7.45 Normal 7.35-7.45 [facility] Comment on above: Performed By: #### Jhon [place] ####[facility] (DEFAULT)[address] [place], [place] [address], [place] [address] pO2 66 mm Hg Low 83-108 [facility] Comment on above: Performed By: #### Jhon [place] ####[facility] (DEFAULT)[address] [place] [address], [place] [address] Potassium [Moles/Vol] 4.2 mmol/L Normal 3.5-5.0 [facility] Comment on above: Performed By: #### Jhon [place] ####[facility] (DEFAULT)[address] [place], [place] [address], [place] [address] Sodium [Moles/Vol] 129 mmol/L Low 135-145 [facility] Comment on above: Performed By: #### Jhon [place] ####[facility] (DEFAULT)[address] [place] [address], [place] [address] Specimen type Nom (Spec) Arterial Normal [facility] Comment on above: Performed By: #### Jhon [place] ####[facility] (DEFAULT)[address] [facility] [place] [address] Base Excess -6.6 mmol/L Low -3.0-3.0 [facility] Comment on above: Performed By: #### Jhon [place] ####[facility] (DEFAULT)[address] [place] [address] Carboxyhemoglobin 1.9 % High <=1.5 [facility] Comment on above: Performed By: #### Jhon [place] ####[facility] (DEFAULT)[address] [place] [address] Glucose [Mass/Vol] 103 mg/dL Normal Nonfastin g Glucose: 70-179 [facility] Comment on above: Performed By: #### Jhon [place] ####[facility] (DEFAULT)[address] [place] [address] HCO3 (Bld) [Moles/Vol] 18 mmol/L Low 22-28 [facility] Comment on above: Performed By: #### Jhon [place] ####[facility] (DEFAULT)[address] [facility] [place] [address] Hematocrit (Bld) [Volume fraction] 17 % Low 40-50 [facility] Comment on above: Performed By: #### Jhon [place] ####[facility] (DEFAULT)[address] [facility] [place] [address] Hemoglobin (Bld) [Mass/Vol] 5.3 g/dL Critically low 13.4-16.8 [facility] Comment on above: Performed By: #### Jhon [place] ####[facility] (DEFAULT)[address] [facility] [place] [address] Ionized Calcium, Whole Blood 4.50 mg/dL Low 4.60-5.30 [facility] Comment on above: Performed By: #### Jhon [place] ####[facility] (DEFAULT)[address] [facility] [place] [address] Lactate, Whole Blood 2.0 mmol/L High 0.5-1.6 [facility] Comment on above: Result Comment: Lact ate results >/= 2.0 mmol/L should be followed up with a measurement 2 hours later for patients with suspicion of sepsis. Performed By: #### Jhon [place] ####[facility] (DEFAULT)[address] [place] [address] Methemoglobin 1.3 % Normal <=1.5 [facility] Comment on above: Performed By: #### Jhon [place] ####[facility] (DEFAULT)[address] [place] [address] Oxygen saturation in Blood 99 % High 94-98 [facility] Comment on above: Performed By: #### Jhon [place] ####[facility] (DEFAULT)[address] [facility] [place] [address] Oxyhemoglobin 96 % Normal 94-98 [facility] Comment on above: Performed By: #### Jhon [place] ####[facility] (DEFAULT)[address] [facility] [place] [address] pCO2 37 mm Hg Normal 32-48 [facility] Comment on above: Performed By: #### Jhon [place] ####[facility] (DEFAULT)[address] [facility] [place] [address] pH, Arterial 7.32 Low 7.35-7.45 [facility] Comment on above: Performed By: #### Jhon [place] ####[facility] (DEFAULT)[address] [facility] [place] [address] pO2 172 mm Hg High 83-108 [facility] Comment on above: Performed By: #### Jhon [place] ####[facility] (DEFAULT)[address] [facility] [place] [address] Potassium [Moles/Vol] 4.2 mmol/L Normal 3.5-5.0 [facility] Comment on above: Performed By: #### Jhon [place] ####[facility] (DEFAULT)[address] [facility] [place] [address] Sodium [Moles/Vol] 131 mmol/L Low 135-145 [facility] Comment on above: Performed By: #### Jhon [place] ####[facility] (DEFAULT)[address] [place] [address] Specimen type Nom (Spec) Arterial Normal [facility] Comment on above: Performed By: #### Jhon [place] ####[facility] (DEFAULT)[address] [facility] [place] [address] Base Excess -4.7 mmol/L Low -3.0-3.0 [facility] Comment on above: Performed By: #### Jhon [place] ####[facility] (DEFAULT)[address] [facility] [place] [address] Carboxyhemoglobin 1.6 % High <=1.5 [facility] Comment on above: Performed By: #### Jhon [place] ####[facility] (DEFAULT)[address] [place] [address], [place] [address] Glucose [Mass/Vol] 111 mg/dL Normal Nonfastin g Glucose: 70-179 [facility] Comment on above: Performed By: #### Jhon [place] ####[facility] (DEFAULT)[address] [place] [address], [place] [address] HCO3 (Bld) [Moles/Vol] 21 mmol/L Low 22-28 [facility] Comment on above: Performed By: ###Lowell [place] ####[facility] (DEFAULT)[address] [place] [address], [place] [address] Hematocrit (Bld) [Volume fraction] 24 % Low 40-50 [facility] Comment on above: Performed By: #### Jhon [place] ####[facility] (DEFAULT)[address] [place] [address], [place] [address] Hemoglobin (Bld) [Mass/Vol] 7.8 g/dL Low 13.4-16.8 [facility] Comment on above: Performed By: #### Jhon [place] ####[facility] (DEFAULT)[address] [place] [address] Ionized Calcium, Whole Blood 4.39 mg/dL Low 4.60-5.30 [facility] Comment on above: Performed By: #### Jhon [place] ####[facility] (DEFAULT)[address] [place] [address] Lactate, Whole Blood 1.3 mmol/L Normal 0.5-1.6 [facility] Comment on above: Performed By: #### Jhon [place] ####[facility] (DEFAULT)[address] [place] [address] Methemoglobin 1.1 % Normal <=1.5 [facility] Comment on above: Performed By: #### Jhon [place] ####[facility] (DEFAULT)[address] [place] [address] Oxygen saturation in Blood 98 % Normal 94-98 [facility] Comment on above: Performed By: #### Jhon [place] ####[facility] (DEFAULT)[address] [facility] [place] [address] Oxyhemoglobin 96 % Normal 94-98 [facility] Comment on above: Performed By: #### Jhon [place] ####[facility] (DEFAULT)[address] [facility] [place] [address] pCO2 43 mm Hg Normal 32-48 [facility] Comment on above: Performed By: #### Jhon [place] ####[facility] (DEFAULT)[address] [place] [address] pH, Arterial 7.30 Low 7.35-7.45 [facility] Comment on above: Performed By: #### Jhon [place] ####[facility] (DEFAULT)[address] [place] [address] pO2 124 mm Hg High 83-108 [facility] Comment on above: Performed By: #### Jhon [place] ####[facility] (DEFAULT)[address] [place] [address] Potassium [Moles/Vol] 4.2 mmol/L Normal 3.5-5.[address] [facility] Comment on above: Performed By: #### Jhon [place] ####[facility] (DEFAULT)[address] [place] [address] Sodium [Moles/Vol] 129 mmol/L Low 135-145 [facility] Comment on above: Performed By: #### G CAROLYNLL ####[facility] (DEFAULT)[address] [place] [address] Specimen type Nom (Spec) Arterial Normal [facility] Comment on above: Performed By: #### G DREAD ####[facility] (DEFAULT)[address] [facility] [place] [address] ARTERIAL BLOOD GAS PLUS LACT ATEon 06-03-2024 Base Excess -9.1 mmol/L Low -3.0-3.0 [facility] Comment on above: Performed By: #### G AS5L ####[facility] (DEFAULT)[address] [facility] [place] [address] HCO3 (Bld) [Moles/Vol] 17 mmol/L Low 22-28 [facility] Comment on above: Performed By: #### Jhon AS5L ####[facility] (DEFAULT)[address] [facility] [place] [address] Lactate, Whole Blood 2.4 mmol/L High 0.5-1.6 [facility] Comment on above: Result Comment: Lact ate results >/= 2.0 mmol/L should be followed up with a measurement 2 hours later for patients with suspicion of sepsis. Performed By: #### G AS5L ####[facility] (DEFAULT)[address] [facility] [place] [address] Oxygen saturation in Blood 99 % High 94-98 [facility] Comment on above: Performed By: #### G AS5L ####[facility] (DEFAULT)[address] [facility] [place] [address] pCO2 31 mm Hg Low 32-48 [facility] Comment on above: Performed By: #### G AS5L ####[facility] (DEFAULT)[address] [place] [address] pH, Arterial 7.34 Low 7.35-7.45 [facility] Comment on above: Performed By: #### G AS5L ####[facility] (DEFAULT)[address] [place] [address] pO2 313 mm Hg High 83-108 [facility] Comment on above: Performed By: #### G AS5L ####[facility] (DEFAULT)[address] [place] [address], [place] [address] Specimen type Nom (Spec) Arterial Normal [facility] Comment on above: Performed By: #### G AS5L ####[facility] (DEFAULT)[address] [place] [address], [place] [address] BLOOD CULTUREon 06-03-2024 Bacteria identified Cx Nom (Unsp spec) NO GROWTH DAY 5 OF 5 Normal [facility] Comment on above: Order Comment: 2 Bot tles (1 Set - consists of 1 Aerobic bottle and 1 Anaerobic bottle) -1st Peripheral DrawFor vacutainer method draw: Fill aerobic bottle first, then anaerobic Performed By: #### B LDCULT ####[facility] (DEFAULT)[address] [place] [address] BODY FLUID CULTURE AND DIREC T SMEARon 06-03-2024 Amikacin [Susceptibility] 2 ug/mL Invalid Interpretation Code Susceptible <=4 ug/mL, Intermediate >4 ug/mL, Resistant >=16 ug/mL [facility] Comment on above: Performed By: #### B FLD ####[facility] (DEFAULT)[address] [place] [address], [place] [address] Ampicillin [Susceptibility] >=32 Resistant Susceptible <=8 ug/mL, Intermediate >8 ug/mL, Resistant >16 ug/mL [facility] Comment on above: Performed By: #### B FLD ####[facility] (DEFAULT)[address] [place] [address] Ampicillin+Sulbactam [Susceptibility] >= Resistant Susceptible <=8 ug/mL, Intermediate >8 ug/mL, Resistant >16 ug/mL [facility] Comment on above: Performed By: #### B FLD ####[facility] (DEFAULT)[address] [place] [address] ceFAZolin [Susceptibility] Resistant [facility] Comment on above: Performed By: #### B FLD ####[facility] (DEFAULT)[address] [place] [address], [place] [address] cefTRIAXone [Susceptibility] >= Resistant Susceptible <=1 ug/mL, Intermediate >1 ug/mL, Resistant >2 ug/mL [facility] Comment on above: Performed By: #### B FLD ####[facility] (DEFAULT)[address] [place] [address], [place] [address] Ciprofloxacin [Susceptibility] 0.5 ug/mL Significant change up Susceptible <=0.25 ug/mL, Intermediate >.25 ug/mL, Resistant >.5 ug/mL [facility] Comment on above: Performed By: #### B FLD ####[facility] (DEFAULT)[address] [place] [address], [place] [address] Ertapenem [Susceptibility] <= Invalid Interpretation Code Susceptible <=0.5 ug/mL, Intermediate >.5 ug/mL, Resistant >1 ug/mL [facility] Comment on above: Performed By: #### B FLD ####[facility] (DEFAULT)[address] [place] [address], [place] [address] Gentamicin [Susceptibility] <= Invalid Interpretation Code Susceptible <=2 ug/mL, Intermediate >2 ug/mL, Resistant >=8 ug/mL [facility] Comment on above: Performed By: #### B FLD ####[facility] (DEFAULT)[address] [place] [address] levoFLOXacin [Susceptibility] 1 ug/mL Significant change up Susceptible <=0.5 ug/mL, Intermediate >.5 ug/mL, Resistant >=2 ug/mL [facility] Comment on above: Performed By: #### B FLD ####[facility] (DEFAULT)[address] [place] [address], [place] [address] Piperacillin+Tazobact am [Susceptibility] Resistant [facility] Comment on above: Performed By: #### B FLD ####[facility] (DEFAULT)[address] [place] [address] Trimethoprim+Sulfamet hoxazole [Susceptibility] >= Resistant Susceptible <=40 ug/mL, Resistant >40 ug/mL [facility] Comment on above: Performed By: #### B FLD ####[facility] (DEFAULT)[address] [place] [address], [place] [address] CALCIUMon 06-03-2024 Calcium [Mass/Vol] 8.5 mg/dL Low 8.6-10.5 [facility] Comment on above: Performed By: #### C HM7, IPB, HFP, MGO, [place] ####[facility] (DEFAULT)[address] [place] [address] NAEEM AURIS SCREEN BY PCRo n 06-03-2024 Naeem auris Screen by PCR Not detected Normal Not Detected [facility] Comment on above: Order Comment: This test was performed using a real-time PCR assay. This test was developed, and its performance characteristics determined by [facility]. It has not been cleared or approved by the FDA. The laboratory is regulated under CLIA as qualified to perform high-complexity testing. This test is used for clinical purposes. It should not be regarded as investigational or for research. Performed By: #### C ANDIDA AURIS SCREEN BY PCR ####[facility] (DEFAULT)[address] [place] [address] CBC,PLATELETSon 06-03-2024 Hematocrit (Bld) [Volume fraction] 22.4 % Low 39.6-48.8 [facility] Comment on above: Performed By: #### H EMOGC ####[facility] (DEFAULT)[address] [facility] [place] [address] Hemoglobin (Bld) [Mass/Vol] 8.1 g/dL Low 13.4-16.8 [facility] Comment on above: Performed By: #### H EMOGC ####[facility] (DEFAULT)[address] [facility] [place] [address] MCV (RBC) [Entitic vol] 89.2 fL Normal 79.0-94.5 [facility] Comment on above: Result Comment: Resu lts inconsistent with previous results Performed By: #### H EMOGC ####[facility] (DEFAULT)[address] [facility] [place] [address] Mean Cell Hgb 32.3 pg Normal 26.1-33.3 [facility] Comment on above: Performed By: #### H EMOGC ####[facility] (DEFAULT)[address] [facility] [place] [place] [address] Mean Cell Hgb Conc 36.2 g/dL Normal 31.9-36.5 [facility] Comment on above: Performed By: #### H EMOGC ####[facility] (DEFAULT)[address] [facility] [place] [address] Platelet mean volume (Bld) [Entitic vol] 12.0 fL Normal 8.7-12.3 [facility] Comment on above: Performed By: #### H EMOGC ####[facility] (DEFAULT)[address] [facility] [place] [place] [address] Platelets (Bld) [#/Vol] 115 10*3/uL Low 146-337 [facility] Comment on above: Performed By: #### H EMOGC ####[facility] (DEFAULT)[address] [facility] [place] [address] RBC (Bld) [#/Vol] 2.51 10*6/uL Low 4.38-5.83 [facility] Comment on above: Performed By: #### H EMOGC ####[facility] (DEFAULT)[address] [place] [address] RBC Distribution 15.5 % High 10.9-14.3 [facility] Comment on above: Performed By: #### H EMOGC ####[facility] (DEFAULT)[address] [place] [address] WBC (Bld) [#/Vol] 23.14 10*3/uL High 3.73-10.10 [facility] Comment on above: Performed By: #### H EMO ####[facility] (DEFAULT)[address] [facility] [place] [address] Hematocrit (Bld) [Volume fraction] 20.9 % Low 39.6-48.8 [facility] Comment on above: Performed By: #### H EMO ####[facility] (DEFAULT)[address] [facility] [place] [place] [address] Hemoglobin (Bld) [Mass/Vol] 7.1 g/dL Low 13.4-16.8 [facility] Comment on above: Result Comment: Resu lts inconsistent with previous results. Performed By: #### H EMO ####[facility] (DEFAULT)[address] [facility] [place] [address] MCV (RBC) [Entitic vol] 94.6 fL High 79.0-94.5 [facility] Comment on above: Performed By: #### H EMO ####[facility] (DEFAULT)[address] [facility] [place] [address] Mean Cell Hgb 32.1 pg Normal 26.1-33.3 [facility] Comment on above: Performed By: #### H EMOGC ####[facility] (DEFAULT)[address] [facility] [place] [address] Mean Cell Hgb Conc 34.0 g/dL Normal 31.9-36.5 [facility] Comment on above: Performed By: #### H EMOGC ####[facility] (DEFAULT)[address] [facility] [place] [address] Platelet mean volume (Bld) [Entitic vol] 12.4 fL High 8.7-12.3 [facility] Comment on above: Performed By: #### H EMOGC ####[facility] (DEFAULT)[address] [facility] [place] [address] Platelets (Bld) [#/Vol] 150 10*3/uL Normal 146-337 [facility] Comment on above: Performed By: #### H EMOGC ####[facility] (DEFAULT)[address] [facility] [place] [address] RBC (Bld) [#/Vol] 2.21 10*6/uL Low 4.38-5.83 [facility] Comment on above: Performed By: #### H EMO ####[facility] (DEFAULT)[address] [place] [address] RBC Distribution 15.9 % High 10.9-14.3 [facility] Comment on above: Performed By: #### H EMO ####[facility] (DEFAULT)[address] [place] [address] WBC (Bld) [#/Vol] 16.80 10*3/uL High 3.73-10.10 [facility] Comment on above: Performed By: #### H EMOGC ####[facility] (DEFAULT)[address] [facility] [place] [address] Hematocrit (Bld) [Volume fraction] 33.2 % Low 39.6-48.8 [facility] Comment on above: Performed By: #### H EMOGC ####[facility] (DEFAULT)[address] [facility] [place] [address] Hemoglobin (Bld) [Mass/Vol] 11.0 g/dL Low 13.4-16.8 [facility] Comment on above: Performed By: #### H EMOGC ####[facility] (DEFAULT)[address] [facility] [place] [address] MCV (RBC) [Entitic vol] 96.5 fL High 79.0-94.5 [facility] Comment on above: Performed By: #### H EMOGC ####[facility] (DEFAULT)[address] [facility] [place] [address] Mean Cell Hgb 32.0 pg Normal 26.1-33.3 [facility] Comment on above: Performed By: #### H EMOGC ####[facility] (DEFAULT)[address] [facility] [place] [address] Mean Cell Hgb Conc 33.1 g/dL Normal 31.9-36.5 [facility] Comment on above: Performed By: #### H EMOGC ####[facility] (DEFAULT)[address] [facility] [place] [address] Platelet mean volume (Bld) [Entitic vol] 12.0 fL Normal 8.7-12.3 [facility] Comment on above: Performed By: #### H EMOGC ####[facility] (DEFAULT)[address] [facility] [place] [address] Platelets (Bld) [#/Vol] 299 10*3/uL Normal 146-337 [facility] Comment on above: Performed By: #### H EMOGC ####[facility] (DEFAULT)[address] [facility] [place] [address] RBC (Bld) [#/Vol] 3.44 10*6/uL Low 4.38-5.83 [facility] Comment on above: Performed By: #### H EMOGC ####[facility] (DEFAULT)[address] [facility] [place] [address] RBC Distribution 16.8 % High 10.9-14.3 [facility] Comment on above: Performed By: #### H EMOGC ####[facility] (DEFAULT)[address] [place] [address] WBC (Bld) [#/Vol] 54.06 10*3/uL Critically high 3.73-10.10 [facility] Comment on above: Result Comment: This result has been called to Stephanie Barcenas RN by Navya on 06/03/2024 06:57:32, and has been read back. Performed By: #### H EMO ####[facility] (DEFAULT)[address] [place] [address] CHEM 7 (LYTES,BUN,CREA,GLUC) on 06-03-2024 Anion gap [Moles/Vol] 18 mmol/L High 7-17 [facility] Comment on above: Performed By: #### H FP, CHM7, IPB, MGO ####[facility] (DEFAULT)[address] [place] [address] Chloride [Moles/Vol] 105 mmol/L Normal 98-108 [facility] Comment on above: Performed By: #### H FP, CHM7, IPB, MGO ####[facility] (DEFAULT)[address] [place] [address] CO2 [Moles/Vol] 17 mmol/L Low 21-31 [facility] Comment on above: Performed By: #### H FP, CHM7, IPB, MGO ####[facility] (DEFAULT)[address] [place] [address] Creatinine [Mass/Vol] 1.12 mg/dL Normal 0.70-1.30 [facility] Comment on above: Performed By: #### H FP, CHM7, IPB, MGO ####[facility] (DEFAULT)[address] [place] [address] GFR/1.73 sq M.predicted among non-blacks MDRD (S/P/Bld) [Vol rate/Area] 76 mL/min/{1.73_m2} Normal >=60 [facility] Comment on above: Result Comment: Repo rted eGFR is based on the CKD-EPI 2020 equation using creatinine, age, and sex. Performed By: #### H FP, CHM7, IPB, MGO ####[facility] (DEFAULT)[address] [facility] [place] [address] Glucose [Mass/Vol] 109 mg/dL Normal Nonfastin -179 mg/dL; Fastin-99 [facility] Comment on above: Performed By: #### H FP, CHM7, IPB, MGO ####[facility] (DEFAULT)[address] [facility] [place] [address] Osmolality [Osmolality] 294 mosm/kg Normal 278-305 [facility] Comment on above: Performed By: #### H FP, CHM7, IPB, MGO ####[facility] (DEFAULT)[address] [facility] [place] [address] Potassium [Moles/Vol] 4.8 mmol/L Normal 3.5-5.0 [facility] Comment on above: Performed By: #### H FP, CHM7, IPB, MGO ####[facility] (DEFAULT)[address] [place] [address] Sodium [Moles/Vol] 135 mmol/L Normal 135-145 [facility] Comment on above: Performed By: #### H FP, CHM7, IPB, MGO ####[facility] (DEFAULT)[address] [facility] [place] [address] Urea nitrogen [Mass/Vol] 36 mg/dL High 7-25 [facility] Comment on above: Performed By: #### H FP, CHM7, IPB, MGO ####[facility] (DEFAULT)[address] [facility] [place] [address] Urea nitrogen/Creatinine [Mass ratio] 32 mg/mg Normal [facility] Comment on above: Performed By: #### H FP, CHM7, IPB, MGO ####[facility] (DEFAULT)[address] [place] [address] Anion gap [Moles/Vol] 20 mmol/L High 7-17 [facility] Comment on above: Performed By: #### C HM7, IPB, HFP, MGO, CA ####[facility] (DEFAULT)[address] [place] [address] Chloride [Moles/Vol] 98 mmol/L Normal 98-108 [facility] Comment on above: Performed By: #### C HM7, IPB, HFP, MGO, CA ####[facility] (DEFAULT)[address] [facility] [place] [address] CO2 [Moles/Vol] 15 mmol/L Low 21-31 [facility] Comment on above: Performed By: #### C HM7, IPB, HFP, MGO, CA ####[facility] (DEFAULT)[address] [facility] [place] [address] Creatinine [Mass/Vol] 1.04 mg/dL Normal 0.70-1.30 [facility] Comment on above: Performed By: #### C HM7, IPB, HFP, MGO, CA ####[facility] (DEFAULT)[address] [place] [address] GFR/1.73 sq M.predicted among non-blacks MDRD (S/P/Bld) [Vol rate/Area] 83 mL/min/{1.73_m2} Normal >=60 [facility] Comment on above: Result Comment: Repo rted eGFR is based on the CKD-EPI 2020 equation using creatinine, age, and sex. Performed By: #### C HM7, IPB, HFP, MGO, CA ####[facility] (DEFAULT)[address] [place] [address] Glucose [Mass/Vol] 100 mg/dL Normal Nonfastin -179 mg/dL; Fastin-99 [facility] Comment on above: Performed By: #### C HM7, IPB, HFP, MGO, CA ####[facility] (DEFAULT)[address] [place] [address] Osmolality [Osmolality] 279 mosm/kg Normal 278-305 [facility] Comment on above: Performed By: #### C HM7, IPB, HFP, MGO, CA ####[facility] (DEFAULT)[address] [place] [address] Potassium [Moles/Vol] 4.5 mmol/L Normal 3.5-5.0 [facility] Comment on above: Performed By: #### C HM7, IPB, HFP, MGO, CA ####[facility] (DEFAULT)[address] [place] [address] Sodium [Moles/Vol] 128 mmol/L Low 135-145 [facility] Comment on above: Performed By: #### C HM7, IPB, HFP, MGO, CA ####[facility] (DEFAULT)[address] [place] [address] Urea nitrogen [Mass/Vol] 33 mg/dL High 7-25 [facility] Comment on above: Performed By: #### C HM7, IPB, HFP, MGO, CA ####[facility] (DEFAULT)[address] [facility] [place] [address] Urea nitrogen/Creatinine [Mass ratio] 32 mg/mg Normal [facility] Comment on above: Performed By: #### C HM7, IPB, HFP, MGO, CA ####[facility] (DEFAULT)[address] [facility] [place] [address] FUNGUS CULTUREon 06-03-2024 Fluconazole [Susceptibility] 64 ug/mL Invalid Interpretation Code Susceptible <=0 ug/mL, Unknown >0 ug/mL [facility] Comment on above: Order Comment: Note: U (Unknown) is used to interpret results when CLSI Interpretive Guidelines are not available.This test was performed using a broth microdilution test method. This test was developed and its performance characteristics determined by the [facility] at [facility]. It has not been cleared or approved by the U.S. Food and Drug Administration. The laboratory is regulated under CLIA as qualified to perform high complexity testing. This test is used for clinical purposes. It should not be regarded as investigational or for research. Performed By: #### F UN ####[facility] (DEFAULT)[address] [place] [address] Micafungin [Susceptibility] 0.12 ug/mL Invalid Interpretation Code Susceptible <=0 ug/mL, Unknown >0 ug/mL [facility] Comment on above: Order Comment: Note: U (Unknown) is used to interpret results when CLSI Interpretive Guidelines are not available.This test was performed using a broth microdilution test method. This test was developed and its performance characteristics determined by the [facility] at [facility]. It has not been cleared or approved by the U.S. Food and Drug Administration. The laboratory is regulated under CLIA as qualified to perform high complexity testing. This test is used for clinical purposes. It should not be regarded as investigational or for research. Performed By: #### F UN ####[facility] (DEFAULT)[address] [place] [address] HEPATIC FUNCTION PANELon Albumin [Mass/Vol] 2.6 g/dL Low 3.5-5.0 [facility] Comment on above: Performed By: #### H FP, CHM7, IPB, MGO ####[facility] (DEFAULT)[address] [place] [address] ALP [Catalytic activity/Vol] 102 U/L Normal 32-126 [facility] Comment on above: Performed By: #### H FP, CHM7, IPB, MGO ####[facility] (DEFAULT)[address] [place] [address] ALT [Catalytic activity/Vol] 88 U/L High 10-52 [facility] Comment on above: Performed By: #### H FP, CHM7, IPB, MGO ####[facility] (DEFAULT)[address] [place] [address] AST [Catalytic activity/Vol] 153 U/L High 10-39 [facility] Comment on above: Performed By: #### H FP, CHM7, IPB, MGO ####[facility] (DEFAULT)[address] [place] [address] Bilirubin [Mass/Vol] 2.8 mg/dL High <1.5 [facility] Comment on above: Performed By: #### H FP, CHM7, IPB, MGO ####[facility] (DEFAULT)[address] [place] [address] Bilirubin.indirect [Mass/Vol] 1.8 mg/dL High <0.3 [facility] Comment on above: Performed By: #### H FP, CHM7, IPB, MGO ####[facility] (DEFAULT)[address] [place] [address] Protein [Mass/Vol] 3.7 g/dL Low 6.4-8.3 [facility] Comment on above: Performed By: #### H FP, CHM7, IPB, MGO ####[facility] (DEFAULT)[address] [place] [address] Albumin [Mass/Vol] 3.4 g/dL Low 3.5-5.0 [facility] Comment on above: Performed By: #### C HM7, IPB, HFP, MGO, CA ####[facility] (DEFAULT)[address] [place] [address] ALP [Catalytic activity/Vol] 242 U/L High 32-126 [facility] Comment on above: Performed By: #### C HM7, IPB, HFP, MGO, CA ####[facility] (DEFAULT)[address] [place] [address] ALT [Catalytic activity/Vol] 64 U/L High 10-52 [facility] Comment on above: Performed By: #### C HM7, IPB, HFP, MGO, CA ####[facility] (DEFAULT)[address] [place] [address] AST [Catalytic activity/Vol] 66 U/L High 10-39 [facility] Comment on above: Performed By: #### C HM7, IPB, HFP, MGO, CA ####[facility] (DEFAULT)[address] [place] [address] Bilirubin [Mass/Vol] 3.2 mg/dL High <1.5 [facility] Comment on above: Performed By: #### C HM7, IPB, HFP, MGO, CA ####[facility] (DEFAULT)[address] [place] [address] Bilirubin.indirect [Mass/Vol] 1.7 mg/dL High <0.3 [facility] Comment on above: Performed By: #### C HM7, IPB, HFP, MGO, CA ####[facility] (DEFAULT)[address] [place] [address] Protein [Mass/Vol] 5.8 g/dL Low 6.4-8.3 [facility] Comment on above: Performed By: #### C HM7, IPB, HFP, MGO, CA ####[facility] (DEFAULT)[address] [place] [address] IONIZED CALCIUM, WHOLE BLOOD on 06-03-2024 ICA 4.34 mg/dL Low 4.60-5.30 [facility] Comment on above: Performed By: #### I CA ####[facility] (DEFAULT)[address] [place] [address] LACTATE, BLOODon 06-03-2024 Lactate, Blood 1.9 mmol/L High 0.5-1.6 [facility] Comment on above: Performed By: #### L ACT ####[facility] (DEFAULT)[address] [place] [address] MAGNESIUMon 06-03-2024 Magnesium [Mass/Vol] 2.3 mg/dL Normal 1.6-2.6 [facility] Comment on above: Performed By: #### H FP, CHM7, IPB, MGO ####[facility] (DEFAULT)[address] [facility] [place] [address] Magnesium [Mass/Vol] 2.6 mg/dL Normal 1.6-2.6 [facility] Comment on above: Performed By: #### C HM7, IPB, HFP, MGO, CA ####[facility] (DEFAULT)[address] [facility] [place] [address] PHOSPHATE, INORGANICon 06-03 Phosphorous 5.6 mg/dL High 2.2-4.6 [facility] Comment on above: Performed By: #### H FP, CHM7, IPB, MGO ####[facility] (DEFAULT)[address] [place] [address] Phosphorous 4.1 mg/dL Normal 2.2-4.6 [facility] Comment on above: Performed By: #### C HM7, IPB, HFP, MGO, CA ####[facility] (DEFAULT)[address] [place], [place] [address], [place] [address] PT,INR,PTTon 06-03-2024 aPTT Coag (Bld) [Time] 44.0 s High 24.0-34.3 [facility] Comment on above: Performed By: #### P TPTT ####[facility] (DEFAULT)[address] [facility] [place] [address] INR Coag (PPP) [Relative time] 3.1 {INR} High 0.9-1.1 [facility] Comment on above: Performed By: #### P TPTT ####[facility] (DEFAULT)[address] [place] [address] PT Coag (PPP) [Time] 31.5 s High 11.9-14.2 [facility] Comment on above: Performed By: #### P TPTT ####[facility] (DEFAULT)[address] [place] [address] aPTT Coag (Bld) [Time] 35.5 s High 24.0-34.3 [facility] Comment on above: Performed By: #### P TPTT ####[facility] (DEFAULT)[address] [facility] [place] [address] INR Coag (PPP) [Relative time] 1.8 {INR} High 0.9-1.1 [facility] Comment on above: Performed By: #### P TPTT ####[facility] (DEFAULT)[address] [facility] [place] [address] PT Coag (PPP) [Time] 20.9 s High 11.9-14.2 [facility] Comment on above: Performed By: #### P TPTT ####[facility] (DEFAULT)[address] [facility] [place] [address] HOWARD MAIN LAB: ROUTINE PANE Campbell 06-03-2024 EXTEM D A10 51 mm Normal No reference range available; see comment [facility] Comment on above: Order Comment: Refer ence ranges are not available for all HOWARD components unless otherwise noted:Interpretation of HOWARD results must include all available parameters, patient clinical context and current therapy.HOWARD viscoelastic testing is not FDA approved for the pediatric population (<21 years of age) and the attached reference ranges pertain to adults only. Performed By: #### R OTEM MAIN LAB: ROUTINE PANEL ####[facility] (DEFAULT)[address] [facility] [place] [address] EXTEM D A20 58 mm Normal 50-70 [facility] Comment on above: Order Comment: Refer ence ranges are not available for all HOWARD components unless otherwise noted:Interpretation of HOWARD results must include all available parameters, patient clinical context and current therapy.HOWARD viscoelastic testing is not FDA approved for the pediatric population (<21 years of age) and the attached reference ranges pertain to adults only. Performed By: #### R OTEM MAIN LAB: ROUTINE PANEL ####[facility] (DEFAULT)[address] [facility] [place] [address] EXTEM D ALPHA 67 degree Normal 65-80 [facility] Comment on above: Order Comment: Refer ence ranges are not available for all HOWARD components unless otherwise noted:Interpretation of HOWARD results must include all available parameters, patient clinical context and current therapy.HOWARD viscoelastic testing is not FDA approved for the pediatric population (<21 years of age) and the attached reference ranges pertain to adults only. Performed By: #### R OTEM MAIN LAB: ROUTINE PANEL ####[facility] (DEFAULT)[address] [place] [address] EXTEM D CFT 117 sec Normal 48-127 [facility] Comment on above: Order Comment: Refer ence ranges are not available for all HOWARD components unless otherwise noted:Interpretation of HOWARD results must include all available parameters, patient clinical context and current therapy.HOWARD viscoelastic testing is not FDA approved for the pediatric population (<21 years of age) and the attached reference ranges pertain to adults only. Performed By: #### R OTEM MAIN LAB: ROUTINE PANEL ####[facility] (DEFAULT)[address] [place] [address] 89 sec High 43-82 [facility] Comment on above: Order Comment: Refer ence ranges are not available for all HOWARD components unless otherwise noted:Interpretation of HOWARD results must include all available parameters, patient clinical context and current therapy.HOWARD viscoelastic testing is not FDA approved for the pediatric population (<21 years of age) and the attached reference ranges pertain to adults only. Performed By: #### R OTEM MAIN LAB: ROUTINE PANEL ####[facility] (DEFAULT)[address] [facility] [place] [address] EXTEM D LI30 100 % Normal No reference range available; see comment [facility] Comment on above: Order Comment: Refer ence ranges are not available for all HOWARD components unless otherwise noted:Interpretation of HOWARD results must include all available parameters, patient clinical context and current therapy.HOWARD viscoelastic testing is not FDA approved for the pediatric population (<21 years of age) and the attached reference ranges pertain to adults only. Performed By: #### R OTEM MAIN LAB: ROUTINE PANEL ####[facility] (DEFAULT)[address] [place] [address], [place] [address] EXTEM D MCF 59 mm Normal 52-70 [facility] Comment on above: Order Comment: Refer ence ranges are not available for all HOWARD components unless otherwise noted:Interpretation of HOWARD results must include all available parameters, patient clinical context and current therapy.HOWARD viscoelastic testing is not FDA approved for the pediatric population (<21 years of age) and the attached reference ranges pertain to adults only. Performed By: #### R OTEM MAIN LAB: ROUTINE PANEL ####[facility] (DEFAULT)[address] [place] [address] EXTEM D ML 6 % Normal No reference range available; see comment [facility] Comment on above: Order Comment: Refer ence ranges are not available for all HOWARD components unless otherwise noted:Interpretation of HOWARD results must include all available parameters, patient clinical context and current therapy.HOWARD viscoelastic testing is not FDA approved for the pediatric population (<21 years of age) and the attached reference ranges pertain to adults only. Performed By: #### R OTEM MAIN LAB: ROUTINE PANEL ####[facility] (DEFAULT)[address] [place] [address], [place] [address] FIBTEM A10 12 mm Normal [facility] Comment on above: Order Comment: Refer ence ranges are not available for all HOWARD components unless otherwise noted:Interpretation of HOWARD results must include all available parameters, patient clinical context and current therapy.HOWARD viscoelastic testing is not FDA approved for the pediatric population (<21 years of age) and the attached reference ranges pertain to adults only. Performed By: #### R OTEM MAIN LAB: ROUTINE PANEL ####[facility] (DEFAULT)[address] [place] [address], [place] [address] FIBTEM A20 13 mm Normal 7-21 [facility] Comment on above: Order Comment: Refer ence ranges are not available for all HOWARD components unless otherwise noted:Interpretation of HOWARD results must include all available parameters, patient clinical context and current therapy.HOWARD viscoelastic testing is not FDA approved for the pediatric population (<21 years of age) and the attached reference ranges pertain to adults only. Performed By: #### R OTEM MAIN LAB: ROUTINE PANEL ####[facility] (DEFAULT)[address] [place] [address] FIBTEM ALPHA 60 degree Normal [facility] Comment on above: Order Comment: Refer ence ranges are not available for all HOWARD components unless otherwise noted:Interpretation of HOWARD results must include all available parameters, patient clinical context and current therapy.HOWARD viscoelastic testing is not FDA approved for the pediatric population (<21 years of age) and the attached reference ranges pertain to adults only. Performed By: #### R OTEM MAIN LAB: ROUTINE PANEL ####[facility] (DEFAULT)[address] [place] [address] 87 sec Normal [facility] Comment on above: Order Comment: Refer ence ranges are not available for all HOWARD components unless otherwise noted:Interpretation of HOWARD results must include all available parameters, patient clinical context and current therapy.HOWARD viscoelastic testing is not FDA approved for the pediatric population (<21 years of age) and the attached reference ranges pertain to adults only. Performed By: #### R OTEM MAIN LAB: ROUTINE PANEL ####[facility] (DEFAULT)[address] [place] [address] FIBTEM LI30 100 % Normal [facility] Comment on above: Order Comment: Refer ence ranges are not available for all HOWARD components unless otherwise noted:Interpretation of HOWARD results must include all available parameters, patient clinical context and current therapy.HOWARD viscoelastic testing is not FDA approved for the pediatric population (<21 years of age) and the attached reference ranges pertain to adults only. Performed By: #### R OTEM MAIN LAB: ROUTINE PANEL ####[facility] (DEFAULT)[address] [facility] [place] [address] FIBTEM MCF 14 mm Normal 7-21 [facility] Comment on above: Order Comment: Refer ence ranges are not available for all HOWARD components unless otherwise noted:Interpretation of HOWARD results must include all available parameters, patient clinical context and current therapy.HOWARD viscoelastic testing is not FDA approved for the pediatric population (<21 years of age) and the attached reference ranges pertain to adults only. Performed By: #### R OTEM MAIN LAB: ROUTINE PANEL ####[facility] (DEFAULT)[address] [place] [address] FIBTEM ML 0 % Normal [facility] Comment on above: Order Comment: Refer ence ranges are not available for all HOWARD components unless otherwise noted:Interpretation of HOWARD results must include all available parameters, patient clinical context and current therapy.HOWARD viscoelastic testing is not FDA approved for the pediatric population (<21 years of age) and the attached reference ranges pertain to adults only. Performed By: #### R OTEM MAIN LAB: ROUTINE PANEL ####[facility] (DEFAULT)[address] [facility] [place] [address] INTEM D A10 53 mm Normal No reference range available; see comment [facility] Comment on above: Order Comment: Refer ence ranges are not available for all HOWARD components unless otherwise noted:Interpretation of HOWARD results must include all available parameters, patient clinical context and current therapy.HOWARD viscoelastic testing is not FDA approved for the pediatric population (<21 years of age) and the attached reference ranges pertain to adults only. Performed By: #### R OTEM MAIN LAB: ROUTINE PANEL ####[facility] (DEFAULT)[address] [place] [address] INTEM D A20 60 mm Normal 51-72 [facility] Comment on above: Order Comment: Refer ence ranges are not available for all HOWARD components unless otherwise noted:Interpretation of HOWARD results must include all available parameters, patient clinical context and current therapy.HOWARD viscoelastic testing is not FDA approved for the pediatric population (<21 years of age) and the attached reference ranges pertain to adults only. Performed By: #### R OTEM MAIN LAB: ROUTINE PANEL ####[facility] (DEFAULT)[address] [place] [address] INTEM D ALPHA 72 degree Normal 70-81 [facility] Comment on above: Order Comment: Refer ence ranges are not available for all HOWARD components unless otherwise noted:Interpretation of HOWARD results must include all available parameters, patient clinical context and current therapy.HOWARD viscoelastic testing is not FDA approved for the pediatric population (<21 years of age) and the attached reference ranges pertain to adults only. Performed By: #### R OTEM MAIN LAB: ROUTINE PANEL ####[facility] (DEFAULT)[address] [place] [address], [place] [address] INTEM D CFT 89 sec Normal 45-110 [facility] Comment on above: Order Comment: Refer ence ranges are not available for all HOWARD components unless otherwise noted:Interpretation of HOWARD results must include all available parameters, patient clinical context and current therapy.HOWARD viscoelastic testing is not FDA approved for the pediatric population (<21 years of age) and the attached reference ranges pertain to adults only. Performed By: #### R OTEM MAIN LAB: ROUTINE PANEL ####[facility] (DEFAULT)[address] [place] [address], [place] [address] 204 sec Normal 122-208 [facility] Comment on above: Order Comment: Refer ence ranges are not available for all HOWARD components unless otherwise noted:Interpretation of HOWARD results must include all available parameters, patient clinical context and current therapy.HOWARD viscoelastic testing is not FDA approved for the pediatric population (<21 years of age) and the attached reference ranges pertain to adults only. Performed By: #### R OTEM MAIN LAB: ROUTINE PANEL ####[facility] (DEFAULT)[address] [place] [address] INTEM D LI30 100 % Normal No reference range available; see comment [facility] Comment on above: Order Comment: Refer ence ranges are not available for all HOWARD components unless otherwise noted:Interpretation of HOWARD results must include all available parameters, patient clinical context and current therapy.HOWARD viscoelastic testing is not FDA approved for the pediatric population (<21 years of age) and the attached reference ranges pertain to adults only. Performed By: #### R OTEM MAIN LAB: ROUTINE PANEL ####[facility] (DEFAULT)[address] [place] [address] INTEM D MCF 61 mm Normal 51-72 [facility] Comment on above: Order Comment: Refer ence ranges are not available for all HOWARD components unless otherwise noted:Interpretation of HOWARD results must include all available parameters, patient clinical context and current therapy.HOWARD viscoelastic testing is not FDA approved for the pediatric population (<21 years of age) and the attached reference ranges pertain to adults only. Performed By: #### R OTEM MAIN LAB: ROUTINE PANEL ####[facility] (DEFAULT)[address] [place] [address] INTEM D ML 4 % Normal [facility] Comment on above: Order Comment: Refer ence ranges are not available for all HOWADR components unless otherwise noted:Interpretation of HOWARD results must include all available parameters, patient clinical context and current therapy.HOWARD viscoelastic testing is not FDA approved for the pediatric population (<21 years of age) and the attached reference ranges pertain to adults only. Performed By: #### R OTEM MAIN LAB: ROUTINE PANEL ####[facility] (DEFAULT)[address] [place] [address] TACROLIMUS LEVEL, TROUGH (PA E DRUG LEVEL)on 06-03-2024 Tacrolimus, Trough 18.8 ng/mL Normal Bone Veronique ow Transplant: 5.0-15.0 Kidney/Pancre atic Transplant: 0 to 3 months: 8.0-10.0, 3 to 12 months: 6.0-8.0, >12 months: 4.0-6.0 [facility] Comment on above: Order Comment: Pleas e draw at specified interval PRIOR to dose. Do not hold dose to wait for level. Specimens batched twice per day, (M-F) and once per day weekendsMethod performed is a chemiluminescent microparticle immunoasssay on the [employer] Maintainer i2000.The range is based on experience at [facility] and users should be aware that target concentrations vary widely depending on concomitant therapy, time post-transplant, and desired degree of immunosuppression. Performed By: #### T ACRO ####[facility] (DEFAULT)[address] [facility] [place] [address] TYPE AND SCREENon 06-03-2024 ABO/RH(D) TYPE Positive Normal [facility] Comment on above: Performed By: #### X M ####[facility] (DEFAULT)[address] [place], [place] [address], [place] [address] Specimen Expiration 06/06/2024 23:59 Normal [facility] Comment on above: Performed By: #### X M ####[facility] (DEFAULT)[address] [facility] [place] [address] URINALYSISon 06-03-2024 Appearance (U) Turbid Abnormal Clear [facility] Comment on above: Performed By: #### U RIN ####[facility] (DEFAULT)[address] [place], [place] [address], [place] [address] Bacteria TRACE Abnormal ABSENT [facility] Comment on above: Performed By: #### U RIN ####[facility] (DEFAULT)[address] [place], [place] [address], [place] [address] Blood Urine Large Abnormal Negative [facility] Comment on above: Performed By: #### U RIN ####[facility] (DEFAULT)[address] [place], [place] [address], [place] [address] Color (U) Yellow Normal Yellow [facility] Comment on above: Performed By: #### U RIN ####[facility] (DEFAULT)[address] [place], [place] [address], [place] [address] Glucose Ql (U) Negative Normal Negative [facility] Comment on above: Performed By: #### U RIN ####[facility] (DEFAULT)[address] [place], [place] [address], [place] [address] Granular Casts 0 - 2 Abnormal [facility] Comment on above: Performed By: #### U RIN ####[facility] (DEFAULT)[address] [facility] [place] [address] Ketones Ql (U) Negative Normal Negative [facility] Comment on above: Performed By: #### U RIN ####[facility] (DEFAULT)[address] [place] [address] Leukocyte esterase Test strip Ql (U) Negative Normal Negative [facility] Comment on above: Performed By: #### U RIN ####[facility] (DEFAULT)[address] [place] [address] Nitrites Urine Negative Normal Negative [facility] Comment on above: Performed By: #### U RIN ####[facility] (DEFAULT)[address] [place] [address] pH (U) 5.0 [pH] Normal 5.0-7.0 [facility] Comment on above: Performed By: #### U RIN ####[facility] (DEFAULT)[address] [place] [address] Protein Urine 30 mg/dL Abnormal Negative [facility] Comment on above: Performed By: #### U RIN ####[facility] (DEFAULT)[address] [place] [address], [place] [address] RBC Urine 6-10 Abnormal 0-2 [facility] Comment on above: Performed By: #### U RIN ####[facility] (DEFAULT)[address] [place] [address], [place] [address] Specific [place] Urine 1.030 Normal 1.001-1.035 [facility] Comment on above: Performed By: #### U RIN ####[facility] (DEFAULT)[address] [place] [address] Squamous/Epithelial Cells, Urine 3-5/hpf = 1+ Normal 0-2/hpf, 3-5/hpf = 1+ [facility] Comment on above: Performed By: #### U RIN ####[facility] (DEFAULT)[address] [place] [address] Urobilinogen Urine 1.0 E.U./dL Normal 0.2 E.U/d L, 1.0 E.U/dL [facility] Comment on above: Performed By: #### U RIN ####[facility] (DEFAULT)[address] [place] [address] WBC Urine 11 - 20 Abnormal 0 - 5 [facility] Comment on above: Performed By: #### U RIN ####[facility] (DEFAULT)[address] [place] [address], [place] [address] XR ABDOMEN 1 VIEW PORTABLEon 06-03-2024 XR ABDOMEN 1 VIEW PORTABLE Normal [facility] XR CHEST 1 VIEW PORTABLEon 0 06-03-2024 XR CHEST 1 VIEW PORTABLE Normal [facility] CALCIUMon 06-02-2024 Calcium [Mass/Vol] 8.4 mg/dL Low 8.6-10.5 [facility] Comment on above: Performed By: #### L ABCYCR, IPB, HFP, CHM7, MGO, CA ####[facility] (DEFAULT)[address] [place] [address] CBC,PLATELETSon 06-02-2024 Hematocrit (Bld) [Volume fraction] 29.9 % Low 39.6-48.8 [facility] Comment on above: Performed By: #### H EMO ####[facility] (DEFAULT)[address] [place] [address] Hemoglobin (Bld) [Mass/Vol] 10.1 g/dL Low 13.4-16.8 [facility] Comment on above: Performed By: #### H EMOGC ####[facility] (DEFAULT)[address] [place] [address] MCV (RBC) [Entitic vol] 95.8 fL High 79.0-94.5 [facility] Comment on above: Performed By: #### H EMOGC ####[facility] (DEFAULT)[address] [facility] [place] [address] Mean Cell Hgb 32.4 pg Normal 26.1-33.3 [facility] Comment on above: Performed By: #### H EMOGC ####[facility] (DEFAULT)[address] [place] [address] Mean Cell Hgb Conc 33.8 g/dL Normal 31.9-36.5 [facility] Comment on above: Performed By: #### H EMOGC ####[facility] (DEFAULT)[address] [facility] [place] [address] Platelet mean volume (Bld) [Entitic vol] 11.6 fL Normal 8.7-12.3 [facility] Comment on above: Performed By: #### H EMOGC ####[facility] (DEFAULT)[address] [facility] [place] [address] Platelets (Bld) [#/Vol] 304 10*3/uL Normal 146-337 [facility] Comment on above: Performed By: #### H EMOGC ####[facility] (DEFAULT)[address] [facility] [place] [address] RBC (Bld) [#/Vol] 3.12 10*6/uL Low 4.38-5.83 [facility] Comment on above: Performed By: #### H EMOGC ####[facility] (DEFAULT)[address] [facility] [place] [address] RBC Distribution 16.5 % High 10.9-14.3 [facility] Comment on above: Performed By: #### H EMOGC ####[facility] (DEFAULT)[address] [facility] [place] [address] WBC (Bld) [#/Vol] 24.75 10*3/uL High 3.73-10.10 [facility] Comment on above: Performed By: #### H EMOGC ####[facility] (DEFAULT)[address] [place] [address] CHEM 7 (LYTES,BUN,CREA,GLUC) on 06-02-2024 Anion gap [Moles/Vol] 13 mmol/L Normal 7-17 [facility] Comment on above: Performed By: #### L ABCYCR, IPB, HFP, CHM7, MGO, CA ####[facility] (DEFAULT)[address] [place] [address] Chloride [Moles/Vol] 98 mmol/L Normal 98-108 [facility] Comment on above: Performed By: #### L ABCYCR, IPB, HFP, CHM7, MGO, CA ####[facility] (DEFAULT)[address] [place] [address] CO2 [Moles/Vol] 25 mmol/L Normal 21-31 [facility] Comment on above: Performed By: #### L ABCYCR, IPB, HFP, CHM7, MGO, CA ####[facility] (DEFAULT)[address] [place] [address] Creatinine [Mass/Vol] 0.47 mg/dL Low 0.70-1.30 [facility] Comment on above: Performed By: #### L ABCYCR, IPB, HFP, CHM7, MGO, CA ####[facility] (DEFAULT)[address] [place] [address] eGFR, CKD-EPI, Male > Normal >=60 [facility] Comment on above: Result Comment: Repo rted eGFR is based on the CKD-EPI 2020 equation using creatinine, age, and sex. Performed By: #### L ABCYCR, IPB, HFP, CHM7, MGO, CA ####[facility] (DEFAULT)[address] [place] [address] Glucose [Mass/Vol] 107 mg/dL Normal Nonfastin -179 mg/dL; Fastin-99 [facility] Comment on above: Performed By: #### L ABCYCR, IPB, HFP, CHM7, MGO, CA ####[facility] (DEFAULT)[address] [place] [address] Osmolality [Osmolality] 280 mosm/kg Normal 278-305 [facility] Comment on above: Performed By: #### L ABCYCR, IPB, HFP, CHM7, MGO, CA ####[facility] (DEFAULT)[address] [place] [address] Potassium [Moles/Vol] 4.7 mmol/L Normal 3.5-5.0 [facility] Comment on above: Performed By: #### L ABCYCR, IPB, HFP, CHM7, MGO, CA ####[facility] (DEFAULT)[address] [place] [address] Sodium [Moles/Vol] 131 mmol/L Low 135-145 [facility] Comment on above: Performed By: #### L ABCYCR, IPB, HFP, CHM7, MGO, CA ####[facility] (DEFAULT)[address] [facility] [place] [address] Urea nitrogen [Mass/Vol] 18 mg/dL Normal 7-25 [facility] Comment on above: Performed By: #### L ABCYCR, IPB, HFP, CHM7, MGO, CA ####[facility] (DEFAULT)[address] [facility] [place] [address] Urea nitrogen/Creatinine [Mass ratio] 38 mg/mg Normal [facility] Comment on above: Performed By: #### L ABCYCR, IPB, HFP, CHM7, MGO, CA ####[facility] (DEFAULT)[address] [place] [address] CT ABDOMEN/PELVIS WITH CONTR Sugar 06-02-2024 CT ABDOMEN/PELVIS WITH CONTRAST Normal [facility] CYSTATIN C AND CREATININE WI TH ESTIMATED GFRon 06-02-2024 Cystatin C 0.93 mg/L Normal 0.51-1.05 [facility] Comment on above: Performed By: #### L ABCYCR, IPB, HFP, CHM7, MGO, CA ####[facility] (DEFAULT)[address] [place] [address] EGFR BY CYS C AND CREATININE, MALE 105 mL/min/1.73m2 Normal >=60 [facility] Comment on above: Result Comment: Repo rted eGFR is based on the CKD-EPI 2020 equation using cystatin C, creatinine, age, and sex. Performed By: #### L ABCYCR, IPB, HFP, CHM7, MGO, CA ####[facility] (DEFAULT)[address] [place] [address] HEPATIC FUNCTION PANELon Albumin [Mass/Vol] 3.4 g/dL Low 3.5-5.0 [facility] Comment on above: Performed By: #### L ABCYCR, IPB, HFP, CHM7, MGO, CA ####[facility] (DEFAULT)[address] [place] [address] ALP [Catalytic activity/Vol] 237 U/L High 32-126 [facility] Comment on above: Performed By: #### L ABCYCR, IPB, HFP, CHM7, MGO, CA ####[facility] (DEFAULT)[address] [place] [address] ALT [Catalytic activity/Vol] 31 U/L Normal 10-52 [facility] Comment on above: Performed By: #### L ABCYCR, IPB, HFP, CHM7, MGO, CA ####[facility] (DEFAULT)[address] [place] [address] AST [Catalytic activity/Vol] 22 U/L Normal 10-39 [facility] Comment on above: Performed By: #### L ABCYCR, IPB, HFP, CHM7, MGO, CA ####[facility] (DEFAULT)[address] [place] [address] Bilirubin [Mass/Vol] 3.7 mg/dL High <1.5 [facility] Comment on above: Performed By: #### L ABCYCR, IPB, HFP, CHM7, MGO, CA ####[facility] (DEFAULT)[address] [place] [address] Bilirubin.indirect [Mass/Vol] 2.2 mg/dL High <0.3 [facility] Comment on above: Performed By: #### L ABCYCR, IPB, HFP, CHM7, MGO, CA ####[facility] (DEFAULT)[address] [place] [address] Protein [Mass/Vol] 5.6 g/dL Low 6.4-8.3 [facility] Comment on above: Performed By: #### L ABCYCR, IPB, HFP, CHM7, MGO, CA ####[facility] (DEFAULT)[address] [place] [address] LACTATE, BLOODon 06-02-2024 Lactate, Blood 2.1 mmol/L High 0.5-1.6 [facility] Comment on above: Result Comment: Lact ate results >/= 2.0 mmol/L should be followed up with a measurement 2 hours later for patients with suspicion of sepsis. Performed By: #### L ACT ####[facility] (DEFAULT)[address] [place] [address] MAGNESIUMon 06-02-2024 Magnesium [Mass/Vol] 1.4 mg/dL Low 1.6-2.6 [facility] Comment on above: Performed By: #### L ABCYCR, IPB, HFP, CHM7, MGO, CA ####[facility] (DEFAULT)[address] [place] [address] PHOSPHATE, INORGANICon 06-02 Phosphorous 3.0 mg/dL Normal 2.2-4.6 [facility] Comment on above: Performed By: #### L ABCYCR, IPB, HFP, CHM7, MGO, CA ####[facility] (DEFAULT)[address] [place] [address] PT,INR,PTTon 06-02-2024 aPTT Coag (Bld) [Time] 31.2 s Normal 24.0-34.3 [facility] Comment on above: Performed By: #### P TPTT ####[facility] (DEFAULT)[address] [place] [address] INR Coag (PPP) [Relative time] 1.4 {INR} High 0.9-1.1 [facility] Comment on above: Performed By: #### P TPTT ####[facility] (DEFAULT)[address] [place] [address] PT Coag (PPP) [Time] 17.0 s High 11.9-14.2 [facility] Comment on above: Performed By: #### P TPTT ####[facility] (DEFAULT)[address] [place] [address] TACROLIMUS LEVEL, TROUGH (PA E DRUG LEVEL)on 06-02-2024 Tacrolimus, Trough 22.8 ng/mL Normal Bone Veronique ow Transplant: 5.0-15.0 Kidney/Pancre atic Transplant: 0 to 3 months: 8.0-10.0, 3 to 12 months: 6.0-8.0, >12 months: 4.0-6.0 [facility] Comment on above: Order Comment: Pleas e draw at specified interval PRIOR to dose. Do not hold dose to wait for level. Specimens batched twice per day, (M-F) and once per day weekendsMethod performed is a chemiluminescent microparticle immunoasssay on the [employer] Maintainer i2000.The range is based on experience at [facility] and users should be aware that target concentrations vary widely depending on concomitant therapy, time post-transplant, and desired degree of immunosuppression. Performed By: #### T ACRO ####[facility] (DEFAULT)[address] [facility] [place] [address] CALCIUMon 06-01-2024 Calcium [Mass/Vol] 8.5 mg/dL Low 8.6-10.5 [facility] Comment on above: Performed By: #### I PB, HFP, CHM7, MGO, CA ####[facility] (DEFAULT)[address] [place] [address] CBC,PLATELETSon 06-01-2024 Hematocrit (Bld) [Volume fraction] 27.8 % Low 39.6-48.8 [facility] Comment on above: Performed By: #### H EMOGC ####[facility] (DEFAULT)[address] [place] [address], [place] [address] Hemoglobin (Bld) [Mass/Vol] 9.2 g/dL Low 13.4-16.8 [facility] Comment on above: Performed By: #### H EMOGC ####[facility] (DEFAULT)[address] [place] [address], [place] [address] MCV (RBC) [Entitic vol] 95.5 fL High 79.0-94.5 [facility] Comment on above: Performed By: #### H EMO ####[facility] (DEFAULT)[address] [place] [address] Mean Cell Hgb 31.6 pg Normal 26.1-33.3 [facility] Comment on above: Performed By: #### H EMOGC ####[facility] (DEFAULT)[address] [place] [address] Mean Cell Hgb Conc 33.1 g/dL Normal 31.9-36.5 [facility] Comment on above: Performed By: #### H EMOGC ####[facility] (DEFAULT)[address] [place] [address], [place] [address] Platelet mean volume (Bld) [Entitic vol] 12.8 fL High 8.7-12.3 [facility] Comment on above: Performed By: #### H EMOGC ####[facility] (DEFAULT)[address] [facility] [place] [address] Platelets (Bld) [#/Vol] 202 10*3/uL Normal 146-337 [facility] Comment on above: Performed By: #### H EMO ####[facility] (DEFAULT)[address] [facility] [place] [address] RBC (Bld) [#/Vol] 2.91 10*6/uL Low 4.38-5.83 [facility] Comment on above: Performed By: #### H EMO ####[facility] (DEFAULT)[address] [facility] [place] [address] RBC Distribution 15.9 % High 10.9-14.3 [facility] Comment on above: Performed By: #### H EMO ####[facility] (DEFAULT)[address] [place] [address] WBC (Bld) [#/Vol] 10.88 10*3/uL High 3.73-10.10 [facility] Comment on above: Performed By: #### H EMO ####[facility] (DEFAULT)[address] [place] [address] CHEM 7 (LYTES,BUN,CREA,GLUC) on 06-01-2024 Anion gap [Moles/Vol] 13 mmol/L Normal 7-17 [facility] Comment on above: Performed By: #### I PB, HFP, CHM7, MGO, CA ####[facility] (DEFAULT)[address] [facility] [place] [address] Chloride [Moles/Vol] 96 mmol/L Low 98-108 [facility] Comment on above: Performed By: #### I PB, HFP, CHM7, MGO, CA ####[facility] (DEFAULT)[address] [facility] [place] [address] CO2 [Moles/Vol] 26 mmol/L Normal 21-31 [facility] Comment on above: Performed By: #### I PB, HFP, CHM7, MGO, CA ####[facility] (DEFAULT)[address] [place] [address] Creatinine [Mass/Vol] 0.50 mg/dL Low 0.70-1.30 [facility] Comment on above: Performed By: #### I PB, HFP, CHM7, MGO, CA ####[facility] (DEFAULT)[address] [place] [address] eGFR, CKD-EPI, Male > Normal >=60 [facility] Comment on above: Result Comment: Repo rted eGFR is based on the CKD-EPI 2020 equation using creatinine, age, and sex. Performed By: #### I PB, HFP, CHM7, MGO, CA ####[facility] (DEFAULT)[address] [place] [address] Glucose [Mass/Vol] 88 mg/dL Normal Nonfastin -179 mg/dL; Fastin-99 [facility] Comment on above: Performed By: #### I PB, HFP, CHM7, MGO, CA ####[facility] (DEFAULT)[address] [place] [address] Osmolality [Osmolality] 276 mosm/kg Low 278-305 [facility] Comment on above: Performed By: #### I PB, HFP, CHM7, MGO, CA ####[facility] (DEFAULT)[address] [place] [address] Potassium [Moles/Vol] 4.2 mmol/L Normal 3.5-5.0 [facility] Comment on above: Performed By: #### I PB, HFP, CHM7, MGO, CA ####[facility] (DEFAULT)[address] [place] [address] Sodium [Moles/Vol] 131 mmol/L Low 135-145 [facility] Comment on above: Performed By: #### I PB, HFP, CHM7, MGO, CA ####[facility] (DEFAULT)[address] [place] [address] Urea nitrogen [Mass/Vol] 15 mg/dL Normal 7-25 [facility] Comment on above: Performed By: #### I PB, HFP, CHM7, MGO, CA ####[facility] (DEFAULT)[address] [place] [address] Urea nitrogen/Creatinine [Mass ratio] 30 mg/mg Normal [facility] Comment on above: Performed By: #### I PB, HFP, CHM7, MGO, CA ####[facility] (DEFAULT)[address] [place] [address] HEPATIC FUNCTION PANELon Albumin [Mass/Vol] 3.4 g/dL Low 3.5-5.0 [facility] Comment on above: Performed By: #### I PB, HFP, CHM7, MGO, CA ####[facility] (DEFAULT)[address] [place] [address] ALP [Catalytic activity/Vol] 247 U/L High 32-126 [facility] Comment on above: Performed By: #### I PB, HFP, CHM7, MGO, CA ####[facility] (DEFAULT)[address] [place] [address] ALT [Catalytic activity/Vol] 35 U/L Normal 10-52 [facility] Comment on above: Performed By: #### I PB, HFP, CHM7, MGO, CA ####[facility] (DEFAULT)[address] [place] [address] AST [Catalytic activity/Vol] 23 U/L Normal 10-39 [facility] Comment on above: Performed By: #### I PB, HFP, CHM7, MGO, CA ####[facility] (DEFAULT)[address] [place] [address] Bilirubin [Mass/Vol] 2.2 mg/dL High <1.5 [facility] Comment on above: Performed By: #### I PB, HFP, CHM7, MGO, CA ####[facility] (DEFAULT)[address] [place] [address] Bilirubin.indirect [Mass/Vol] 0.9 mg/dL High <0.3 [facility] Comment on above: Performed By: #### I PB, HFP, CHM7, MGO, CA ####[facility] (DEFAULT)[address] [place] [address] Protein [Mass/Vol] 5.7 g/dL Low 6.4-8.3 [facility] Comment on above: Performed By: #### I PB, HFP, CHM7, MGO, CA ####[facility] (DEFAULT)[address] [place] [address] LACTATE, BLOODon 06-01-2024 Lactate, Blood 1.4 mmol/L Normal 0.5-1.6 [facility] Comment on above: Performed By: #### L ACT ####[facility] (DEFAULT)[address] [place] [address] MAGNESIUMon 06-01-2024 Magnesium [Mass/Vol] 1.5 mg/dL Low 1.6-2.6 [facility] Comment on above: Performed By: #### I PB, HFP, CHM7, MGO, CA ####[facility] (DEFAULT)[address] [place] [address] PHOSPHATE, INORGANICon 06-01 Phosphorous 2.9 mg/dL Normal 2.2-4.6 [facility] Comment on above: Performed By: #### I PB, HFP, CHM7, MGO, CA ####[facility] (DEFAULT)[address] [place] [address] PT,INR,PTTon 06-01-2024 aPTT Coag (Bld) [Time] 29.4 s Normal 24.0-34.3 [facility] Comment on above: Performed By: #### P TPTT ####[facility] (DEFAULT)[address] [facility] [place] [address] INR Coag (PPP) [Relative time] 1.2 {INR} High 0.9-1.1 [facility] Comment on above: Performed By: #### P TPTT ####[facility] (DEFAULT)[address] [facility] [place] [address] PT Coag (PPP) [Time] 14.9 s High 11.9-14.2 [facility] Comment on above: Performed By: #### P TPTT ####[facility] (DEFAULT)[address] [place] [address] TACROLIMUS LEVEL, TROUGH (PA E DRUG LEVEL)on 06-01-2024 Tacrolimus, Trough 8.5 ng/mL Normal Bone Veronique ow Transplant: 5.0-15.0 Kidney/Pancre atic Transplant: 0 to 3 months: 8.0-10.0, 3 to 12 months: 6.0-8.0, >12 months: 4.0-6.0 [facility] Comment on above: Order Comment: Pleas e draw at specified interval PRIOR to dose. Do not hold dose to wait for level. Specimens batched twice per day, (M-F) and once per day weekendsMethod performed is a chemiluminescent microparticle immunoasssay on the [employer] i2000.The range is based on experience at [facility] and users should be aware that target concentrations vary widely depending on concomitant therapy, time post-transplant, and desired degree of immunosuppression. Performed By: #### T ACRO ####[facility] (DEFAULT)[address] [place] [address] XR ABDOMEN 1 VIEW PORTABLEon 06-01-2024 XR ABDOMEN 1 VIEW PORTABLE Normal [facility] XR ABDOMEN 1 VIEW PORTABLE Normal [facility] XR ABDOMEN 1 VIEW PORTABLE Normal [facility] XR ABDOMEN 1 VIEW PORTABLE Normal [facility] CALCIUMon 05-31-2024 Calcium [Mass/Vol] 8.4 mg/dL Low 8.6-10.5 [facility] Comment on above: Performed By: #### I PB, HFP, CHM7, MGO, CA ####[facility] (DEFAULT)[address] [facility] [place] [address] CBC,PLATELETSon 05-31-2024 Hematocrit (Bld) [Volume fraction] 27.8 % Low 39.6-48.8 [facility] Comment on above: Performed By: #### [facility] ####[facility] (DEFAULT)[address] [facility] [place] [address] Hemoglobin (Bld) [Mass/Vol] 9.2 g/dL Low 13.4-16.8 [facility] Comment on above: Performed By: #### H EMOGC ####[facility] (DEFAULT)[address] [facility] [place] [address] MCV (RBC) [Entitic vol] 94.6 fL High 79.0-94.5 [facility] Comment on above: Performed By: #### H EMO ####[facility] (DEFAULT)[address] [facility] [place] [address] Mean Cell Hgb 31.3 pg Normal 26.1-33.3 [facility] Comment on above: Performed By: #### H EMO ####[facility] (DEFAULT)[address] [place] [address] Mean Cell Hgb Conc 33.1 g/dL Normal 31.9-36.5 [facility] Comment on above: Performed By: #### H EMOGC ####[facility] (DEFAULT)[address] [facility] [place] [address] Platelet mean volume (Bld) [Entitic vol] 12.1 fL Normal 8.7-12.3 [facility] Comment on above: Performed By: #### H EMO ####[facility] (DEFAULT)[address] [facility] [place] [address] Platelets (Bld) [#/Vol] 210 10*3/uL Normal 146-337 [facility] Comment on above: Performed By: #### H EMO ####[facility] (DEFAULT)[address] [facility] [place] [place] [address] RBC (Bld) [#/Vol] 2.94 10*6/uL Low 4.38-5.83 [facility] Comment on above: Performed By: #### H EMO ####[facility] (DEFAULT)[address] [facility] [place] [address] RBC Distribution 15.8 % High 10.9-14.3 [facility] Comment on above: Performed By: #### H EMO ####[facility] (DEFAULT)[address] [place] [address] WBC (Bld) [#/Vol] 12.38 10*3/uL High 3.73-10.10 [facility] Comment on above: Performed By: #### H EMO ####[facility] (DEFAULT)[address] [place] [address] CHEM 7 (LYTES,BUN,CREA,GLUC) on 05-31-2024 Anion gap [Moles/Vol] 11 mmol/L Normal 7-17 [facility] Comment on above: Performed By: #### I PB, HFP, CHM7, MGO, CA ####[facility] (DEFAULT)[address] [place] [address] Chloride [Moles/Vol] 99 mmol/L Normal 98-108 [facility] Comment on above: Performed By: #### I PB, HFP, CHM7, MGO, CA ####[facility] (DEFAULT)[address] [place] [address] CO2 [Moles/Vol] 27 mmol/L Normal 21-31 [facility] Comment on above: Performed By: #### I PB, HFP, CHM7, MGO, CA ####[facility] (DEFAULT)[address] [facility] [place] [address] Creatinine [Mass/Vol] 0.52 mg/dL Low 0.70-1.30 [facility] Comment on above: Performed By: #### I PB, HFP, CHM7, MGO, CA ####[facility] (DEFAULT)[address] [facility] [place] [address] eGFR, CKD-EPI, Male > Normal >=60 [facility] Comment on above: Result Comment: Repo rted eGFR is based on the CKD-EPI 2020 equation using creatinine, age, and sex. Performed By: #### I PB, HFP, CHM7, MGO, CA ####[facility] (DEFAULT)[address] [place] [address] Glucose [Mass/Vol] 111 mg/dL Normal Nonfastin -179 mg/dL; Fastin-99 [facility] Comment on above: Performed By: #### I PB, HFP, CHM7, MGO, CA ####[facility] (DEFAULT)[address] [facility] [place] [address] Osmolality [Osmolality] 281 mosm/kg Normal 278-305 [facility] Comment on above: Performed By: #### I PB, HFP, CHM7, MGO, CA ####[facility] (DEFAULT)[address] [facility] [place] [address] Potassium [Moles/Vol] 4.3 mmol/L Normal 3.5-5.0 [facility] Comment on above: Performed By: #### I PB, HFP, CHM7, MGO, CA ####[facility] (DEFAULT)[address] [place] [address] Sodium [Moles/Vol] 133 mmol/L Low 135-145 [facility] Comment on above: Performed By: #### I PB, HFP, CHM7, MGO, CA ####[facility] (DEFAULT)[address] [place] [address] Urea nitrogen [Mass/Vol] 13 mg/dL Normal 7-25 [facility] Comment on above: Performed By: #### I PB, HFP, CHM7, MGO, CA ####[facility] (DEFAULT)[address] [facility] [place] [address] Urea nitrogen/Creatinine [Mass ratio] 25 mg/mg Normal [facility] Comment on above: Performed By: #### I PB, HFP, CHM7, MGO, CA ####[facility] (DEFAULT)[address] [facility] [place] [address] HEPATIC FUNCTION PANELon Albumin [Mass/Vol] 3.4 g/dL Low 3.5-5.0 [facility] Comment on above: Performed By: #### I PB, HFP, CHM7, MGO, CA ####[facility] (DEFAULT)[address] [facility] [place] [address] ALP [Catalytic activity/Vol] 268 U/L High 32-126 [facility] Comment on above: Performed By: #### I PB, HFP, CHM7, MGO, CA ####[facility] (DEFAULT)[address] [facility] [place] [address] ALT [Catalytic activity/Vol] 37 U/L Normal 10-52 [facility] Comment on above: Performed By: #### I PB, HFP, CHM7, MGO, CA ####[facility] (DEFAULT)[address] [place] [address] AST [Catalytic activity/Vol] 22 U/L Normal 10-39 [facility] Comment on above: Performed By: #### I PB, HFP, CHM7, MGO, CA ####[facility] (DEFAULT)[address] [place] [address] Bilirubin [Mass/Vol] 2.0 mg/dL High <1.5 [facility] Comment on above: Performed By: #### I PB, HFP, CHM7, MGO, CA ####[facility] (DEFAULT)[address] [place] [address] Bilirubin.indirect [Mass/Vol] 0.9 mg/dL High <0.3 [facility] Comment on above: Performed By: #### I PB, HFP, CHM7, MGO, CA ####[facility] (DEFAULT)[address] [place] [address] Protein [Mass/Vol] 5.7 g/dL Low 6.4-8.3 [facility] Comment on above: Performed By: #### I PB, HFP, CHM7, MGO, CA ####[facility] (DEFAULT)[address] [place] [address] LACTATE, BLOODon 05-31-2024 Lactate, Blood 1.1 mmol/L Normal 0.5-1.6 [facility] Comment on above: Performed By: #### L ACT ####[facility] (DEFAULT)[address] [place] [address] MAGNESIUMon 05-31-2024 Magnesium [Mass/Vol] 1.9 mg/dL Normal 1.6-2.6 [facility] Comment on above: Performed By: #### I PB, HFP, CHM7, MGO, CA ####[facility] (DEFAULT)[address] [place] [address] PHOSPHATE, INORGANICon 05-31 Phosphorous 2.8 mg/dL Normal 2.2-4.6 [facility] Comment on above: Performed By: #### I PB, HFP, CHM7, MGO, CA ####[facility] (DEFAULT)[address] [place] [address] PT,INR,PTTon 05-31-2024 aPTT Coag (Bld) [Time] 28.4 s Normal 24.0-34.3 [facility] Comment on above: Performed By: #### P TPTT ####[facility] (DEFAULT)[address] [facility] [address] INR Coag (PPP) [Relative time] 1.2 {INR} High 0.9-1.1 [facility] Comment on above: Performed By: #### P TPTT ####[facility] (DEFAULT)[address] [facility] [place] [address] PT Coag (PPP) [Time] 15.0 s High 11.9-14.2 [facility] Comment on above: Performed By: #### P TPTT ####[facility] (DEFAULT)[address] [place] [address] TACROLIMUS LEVEL, TROUGH (PA E DRUG LEVEL)on 05-31-2024 Tacrolimus, Trough 6.1 ng/mL Normal Bone Veronique ow Transplant: 5.0-15.0 Kidney/Pancre atic Transplant: 0 to 3 months: 8.0-10.0, 3 to 12 months: 6.0-8.0, >12 months: 4.0-6.0 [facility] Comment on above: Order Comment: Pleas e draw at specified interval PRIOR to dose. Do not hold dose to wait for level. Specimens batched twice per day, (M-F) and once per day weekendsMethod performed is a chemiluminescent microparticle immunoasssay on the [employer] i2000.The range is based on experience at [facility] and users should be aware that target concentrations vary widely depending on concomitant therapy, time post-transplant, and desired degree of immunosuppression. Performed By: #### T ACRO ####[facility] (DEFAULT)[address] [place] [address] BLOOD CULTUREon 05-30-2024 Bacteria identified Cx Nom (Unsp spec) NO GROWTH DAY 5 OF 5 Normal [facility] Comment on above: Order Comment: 2 Bot tles (1 Set - consists of 1 Aerobic bottle and 1 Anaerobic bottle) -1st Peripheral DrawFor vacutainer method draw: Fill aerobic bottle first, then anaerobicResults may be compromised due to HIGH VOLUME of the BACT\ALERT bottle EXCEEDING 10mLs, which can be associated with increased contamination. The optimal blood volume is 8-10mLs per aerobic/anaerobic blood culture bottle. Performed By: #### B LDCULT ####[facility] (DEFAULT)[address] [place] [address] CALCIUMon 05-30-2024 Calcium [Mass/Vol] 8.6 mg/dL Normal 8.6-10.5 [facility] Comment on above: Performed By: #### I PB, HFP, CHM7, MGO, CA ####[facility] (DEFAULT)[address] [place] [address] CBC,PLATELETSon 05-30-2024 Hematocrit (Bld) [Volume fraction] 29.1 % Low 39.6-48.8 [facility] Comment on above: Performed By: #### [facility] ####[facility] (DEFAULT)[address] [place] [address] Hemoglobin (Bld) [Mass/Vol] 9.7 g/dL Low 13.4-16.8 [facility] Comment on above: Performed By: #### H EMOGC ####[facility] (DEFAULT)[address] [place] [address] MCV (RBC) [Entitic vol] 94.5 fL Normal 79.0-94.5 [facility] Comment on above: Performed By: #### H EMOGC ####[facility] (DEFAULT)[address] [place] [address] Mean Cell Hgb 31.5 pg Normal 26.1-33.3 [facility] Comment on above: Performed By: #### H EMOGC ####[facility] (DEFAULT)[address] [place] [address] Mean Cell Hgb Conc 33.3 g/dL Normal 31.9-36.5 [facility] Comment on above: Performed By: #### H EMOGC ####[facility] (DEFAULT)[address] [facility] [place] [address] Platelet mean volume (Bld) [Entitic vol] 11.9 fL Normal 8.7-12.3 [facility] Comment on above: Performed By: #### H EMOGC ####[facility] (DEFAULT)[address] [facility] [place] [address] Platelets (Bld) [#/Vol] 218 10*3/uL Normal 146-337 [facility] Comment on above: Performed By: #### H EMOGC ####[facility] (DEFAULT)[address] [place] [address] RBC (Bld) [#/Vol] 3.08 10*6/uL Low 4.38-5.83 [facility] Comment on above: Performed By: #### H EMO ####[facility] (DEFAULT)[address] [facility] [place] [address] RBC Distribution 15.8 % High 10.9-14.3 [facility] Comment on above: Performed By: #### H EMOGC ####[facility] (DEFAULT)[address] [place] [address] WBC (Bld) [#/Vol] 12.45 10*3/uL High 3.73-10.10 [facility] Comment on above: Performed By: #### H EMOGC ####[facility] (DEFAULT)[address] [place] [address] CHEM 7 (LYTES,BUN,CREA,GLUC) on 05-30-2024 Anion gap [Moles/Vol] 14 mmol/L Normal 7-17 [facility] Comment on above: Performed By: #### I PB, HFP, CHM7, MGO, CA ####[facility] (DEFAULT)[address] [facility] [place] [address] Chloride [Moles/Vol] 100 mmol/L Normal 98-108 [facility] Comment on above: Performed By: #### I PB, HFP, CHM7, MGO, CA ####[facility] (DEFAULT)[address] [place] [address] CO2 [Moles/Vol] 26 mmol/L Normal 21-31 [facility] Comment on above: Performed By: #### I PB, HFP, CHM7, MGO, CA ####[facility] (DEFAULT)[address] [facility] [place] [address] Creatinine [Mass/Vol] 0.61 mg/dL Low 0.70-1.30 [facility] Comment on above: Performed By: #### I PB, HFP, CHM7, MGO, CA ####[facility] (DEFAULT)[address] [place] [address] eGFR, CKD-EPI, Male > Normal >=60 [facility] Comment on above: Result Comment: Repo rted eGFR is based on the CKD-EPI 2020 equation using creatinine, age, and sex. Performed By: #### I PB, HFP, CHM7, MGO, CA ####[facility] (DEFAULT)[address] [facility] [place] [address] Glucose [Mass/Vol] 104 mg/dL Normal Nonfastin -179 mg/dL; Fastin-99 [facility] Comment on above: Performed By: #### I PB, HFP, CHM7, MGO, CA ####[facility] (DEFAULT)[address] [place], [place] [address], [place] [address] Osmolality [Osmolality] 286 mosm/kg Normal 278-305 [facility] Comment on above: Performed By: #### I PB, HFP, CHM7, MGO, CA ####[facility] (DEFAULT)[address] [place] [address] Potassium [Moles/Vol] 3.9 mmol/L Normal 3.5-5.[address] [facility] Comment on above: Performed By: #### I PB, HFP, CHM7, MGO, CA ####[facility] (DEFAULT)[address] [place] [address] Sodium [Moles/Vol] 136 mmol/L Normal 135-145 [facility] Comment on above: Performed By: #### I PB, HFP, CHM7, MGO, CA ####[facility] (DEFAULT)[address] [place] [address] Urea nitrogen [Mass/Vol] 14 mg/dL Normal 7-25 [facility] Comment on above: Performed By: #### I PB, HFP, CHM7, MGO, CA ####[facility] (DEFAULT)[address] [place] [address] Urea nitrogen/Creatinine [Mass ratio] 23 mg/mg Normal [facility] Comment on above: Performed By: #### I PB, HFP, CHM7, MGO, CA ####[facility] (DEFAULT)[address] [place] [address] HEPATIC FUNCTION PANELon Albumin [Mass/Vol] 3.4 g/dL Low 3.5-5.0 [facility] Comment on above: Performed By: #### I PB, HFP, CHM7, MGO, CA ####[facility] (DEFAULT)[address] [place] [address] ALP [Catalytic activity/Vol] 272 U/L High 32-126 [facility] Comment on above: Performed By: #### I PB, HFP, CHM7, MGO, CA ####[facility] (DEFAULT)[address] [place] [address] ALT [Catalytic activity/Vol] 44 U/L Normal 10-52 [facility] Comment on above: Performed By: #### I PB, HFP, CHM7, MGO, CA ####[facility] (DEFAULT)[address] [place] [address] AST [Catalytic activity/Vol] 29 U/L Normal 10-39 [facility] Comment on above: Performed By: #### I PB, HFP, CHM7, MGO, CA ####[facility] (DEFAULT)[address] [place] [address] Bilirubin [Mass/Vol] 2.0 mg/dL High <1.5 [facility] Comment on above: Performed By: #### I PB, HFP, CHM7, MGO, CA ####[facility] (DEFAULT)[address] [facility] [place] [address] Bilirubin.indirect [Mass/Vol] 0.8 mg/dL High <0.3 [facility] Comment on above: Performed By: #### I PB, HFP, CHM7, MGO, CA ####[facility] (DEFAULT)[address] [place] [address] Protein [Mass/Vol] 5.8 g/dL Low 6.4-8.3 [facility] Comment on above: Performed By: #### I PB, HFP, CHM7, MGO, CA ####[facility] (DEFAULT)[address] [facility] [place] [address] LACTATE, BLOODon 05-30-2024 Lactate, Blood 1.7 mmol/L High 0.5-1.6 [facility] Comment on above: Performed By: #### L ACT ####[facility] (DEFAULT)[address] [facility] [place] [address] MAGNESIUMon 05-30-2024 Magnesium [Mass/Vol] 1.5 mg/dL Low 1.6-2.6 [facility] Comment on above: Performed By: #### I PB, HFP, CHM7, MGO, CA ####[facility] (DEFAULT)[address] [place] [address] PHOSPHATE, INORGANICon 05-30 Phosphorous 2.4 mg/dL Normal 2.2-4.6 [facility] Comment on above: Performed By: #### I PB, HFP, CHM7, MGO, CA ####[facility]DEFAULT[facility] [facility] [place] [address] PT,INR,PTTon 05-30-2024 aPTT Coag (Bld) [Time] 27.8 s Normal 24.0-34.3 [facility] Comment on above: Performed By: #### P TPTT ####[facility] (DEFAULT)[address] [facility] [place] [address] INR Coag (PPP) [Relative time] 1.2 {INR} High 0.9-1.1 [facility] Comment on above: Performed By: #### P TPTT ####[facility] (DEFAULT)[address] [facility] [place] [address] PT Coag (PPP) [Time] 15.6 s High 11.9-14.2 [facility] Comment on above: Performed By: #### P TPTT ####[facility] (DEFAULT)[address] [place] [address] TACROLIMUS LEVEL, TROUGH (PA E DRUG LEVEL)on 05-30-2024 Tacrolimus, Trough 6.2 ng/mL Normal Bone Veronique ow Transplant: 5.0-15.0 Kidney/Pancre atic Transplant: 0 to 3 months: 8.0-10.0, 3 to 12 months: 6.0-8.0, >12 months: 4.0-6.0 [facility] Comment on above: Order Comment: Pleas e draw at specified interval PRIOR to dose. Do not hold dose to wait for level. Specimens batched twice per day, (M-F) and once per day weekendsMethod performed is a chemiluminescent microparticle immunoasssay on the [employer] i2000.The range is based on experience at [facility] and users should be aware that target concentrations vary widely depending on concomitant therapy, time post-transplant, and desired degree of immunosuppression. Performed By: #### T ACRO ####[facility] (DEFAULT)[address] [place] [address] US ABDOMEN LIVER TRANSPLANT DOPPLERon 05-30-2024 US ABDOMEN LIVER TRANSPLANT DOPPLER Normal [facility] XR ABDOMEN 1 VIEWon 05-31-19 XR ABDOMEN 1 VIEW Normal [facility] CALCIUMon 05-29-2024 Calcium [Mass/Vol] 8.4 mg/dL Low 8.6-10.5 [facility] Comment on above: Performed By: #### I PB, HFP, CHM7, MGO, CA ####[facility] (DEFAULT)[address] [place] [address] CBC,PLATELETSon 05-29-2024 Hematocrit (Bld) [Volume fraction] 25.4 % Low 39.6-48.8 [facility] Comment on above: Performed By: #### H EMOGC ####[facility] (DEFAULT)[address] [place] [address] Hemoglobin (Bld) [Mass/Vol] 8.4 g/dL Low 13.4-16.8 [facility] Comment on above: Performed By: #### H EMOGC ####[facility] (DEFAULT)[address] [place] [address] MCV (RBC) [Entitic vol] 94.4 fL Normal 79.0-94.5 [facility] Comment on above: Performed By: #### H EMOGC ####[facility] (DEFAULT)[address] [place] [address] Mean Cell Hgb 31.2 pg Normal 26.1-33.3 [facility] Comment on above: Performed By: #### H EMOGC ####[facility] (DEFAULT)[address] [place] [address] Mean Cell Hgb Conc 33.1 g/dL Normal 31.9-36.5 [facility] Comment on above: Performed By: #### H EMOGC ####[facility] (DEFAULT)[address] [facility] [place] [address] Platelet mean volume (Bld) [Entitic vol] 12.8 fL High 8.7-12.3 [facility] Comment on above: Performed By: #### H EMOGC ####[facility] (DEFAULT)[address] [facility] [address] Platelets (Bld) [#/Vol] 186 10*3/uL Normal 146-337 [facility] Comment on above: Performed By: #### H EMOGC ####[facility] (DEFAULT)[address] [facility] [place] [place] [address] RBC (Bld) [#/Vol] 2.69 10*6/uL Low 4.38-5.83 [facility] Comment on above: Performed By: #### H EMOGC ####[facility] (DEFAULT)[address] [place] [address] RBC Distribution 15.8 % High 10.9-14.3 [facility] Comment on above: Performed By: #### H EMOGC ####[facility] (DEFAULT)[address] [place] [address] WBC (Bld) [#/Vol] 13.50 10*3/uL High 3.73-10.10 [facility] Comment on above: Performed By: #### H EMOGC ####[facility] (DEFAULT)[address] [place] [address] CHEM 7 (LYTES,BUN,CREA,GLUC) on 05-29-2024 Anion gap [Moles/Vol] 11 mmol/L Normal 7-17 [place] [facility] Comment on above: Performed By: #### I PB, HFP, CHM7, MGO, CA ####[facility] (DEFAULT)[address] [place] [address] Chloride [Moles/Vol] 102 mmol/L Normal 98-108 [facility] Comment on above: Performed By: #### I PB, HFP, CHM7, MGO, CA ####[facility] (DEFAULT)[address] [facility] [place] [place] [address] CO2 [Moles/Vol] 27 mmol/L Normal 21-31 [facility] Comment on above: Performed By: #### I PB, HFP, CHM7, MGO, CA ####[facility] (DEFAULT)[address] [place] [address] Creatinine [Mass/Vol] 0.58 mg/dL Low 0.70-1.30 [facility] Comment on above: Performed By: #### I PB, HFP, CHM7, MGO, CA ####[facility] (DEFAULT)[address] [place] [address] eGFR, CKD-EPI, Male > Normal >=60 [facility] Comment on above: Result Comment: Repo rted eGFR is based on the CKD-EPI 2020 equation using creatinine, age, and sex. Performed By: #### I PB, HFP, CHM7, MGO, CA ####[facility] (DEFAULT)[address] [place] [address] Glucose [Mass/Vol] 95 mg/dL Normal Nonfastin -179 mg/dL; Fastin-99 [facility] Comment on above: Performed By: #### I PB, HFP, CHM7, MGO, CA ####[facility] (DEFAULT)[address] [place] [address] Osmolality [Osmolality] 288 mosm/kg Normal 278-305 [facility] Comment on above: Performed By: #### I PB, HFP, CHM7, MGO, CA ####[facility] (DEFAULT)[address] [place] [address] Potassium [Moles/Vol] 4.0 mmol/L Normal 3.5-5.[address] [facility] Comment on above: Performed By: #### I PB, HFP, CHM7, MGO, CA ####[facility] (DEFAULT)[address] [place] [address] Sodium [Moles/Vol] 136 mmol/L Normal 135-145 [facility] Comment on above: Performed By: #### I PB, HFP, CHM7, MGO, CA ####[facility] (DEFAULT)[address] [place] [address] Urea nitrogen [Mass/Vol] 20 mg/dL Normal 7-25 [facility] Comment on above: Performed By: #### I PB, HFP, CHM7, MGO, CA ####[facility] (DEFAULT)[address] [place] [address] Urea nitrogen/Creatinine [Mass ratio] 34 mg/mg Normal [facility] Comment on above: Performed By: #### I PB, HFP, CHM7, MGO, CA ####[facility] (DEFAULT)[address] [place] [address] HEPATIC FUNCTION PANELon Albumin [Mass/Vol] 3.0 g/dL Low 3.5-5.0 [facility] Comment on above: Performed By: #### I PB, HFP, CHM7, MGO, CA ####[facility] (DEFAULT)[address] [place] [address] ALP [Catalytic activity/Vol] 251 U/L High 32-126 [facility] Comment on above: Performed By: #### I PB, HFP, CHM7, MGO, CA ####[facility] (DEFAULT)[address] [place] [address] ALT [Catalytic activity/Vol] 55 U/L High 10-52 [facility] Comment on above: Performed By: #### I PB, HFP, CHM7, MGO, CA ####[facility] (DEFAULT)[address] [place] [address] AST [Catalytic activity/Vol] 45 U/L High 10-39 [facility] Comment on above: Performed By: #### I PB, HFP, CHM7, MGO, CA ####[facility] (DEFAULT)[address] [place] [address] Bilirubin [Mass/Vol] 1.8 mg/dL High <1.5 [facility] Comment on above: Performed By: #### I PB, HFP, CHM7, MGO, CA ####[facility] (DEFAULT)[address] [place] [address] Bilirubin.indirect [Mass/Vol] 0.8 mg/dL High <0.3 [facility] Comment on above: Performed By: #### I PB, HFP, CHM7, MGO, CA ####[facility] (DEFAULT)[address] [place] [address] Protein [Mass/Vol] 5.4 g/dL Low 6.4-8.3 [facility] Comment on above: Performed By: #### I PB, HFP, CHM7, MGO, CA ####[facility] (DEFAULT)[address] [place] [address] LACTATE, BLOODon 05-29-2024 Lactate, Blood 1.4 mmol/L Normal 0.5-1.6 [facility] Comment on above: Performed By: #### L ACT ####[facility] (DEFAULT)[address] [place] [address] MAGNESIUMon 05-29-2024 Magnesium [Mass/Vol] 1.6 mg/dL Normal 1.6-2.6 [facility] Comment on above: Performed By: #### I PB, HFP, CHM7, MGO, CA ####[facility] (DEFAULT)[address] [place] [address] PHOSPHATE, INORGANICon 05-29 Phosphorous 1.6 mg/dL Low 2.2-4.6 [facility] Comment on above: Performed By: #### I PB, HFP, CHM7, MGO, CA ####[facility] (DEFAULT)[address] [place] [address] PT,INR,PTTon 05-29-2024 aPTT Coag (Bld) [Time] 29.3 s Normal 24.0-34.3 [facility] Comment on above: Performed By: #### P TPTT ####[facility] (DEFAULT)[address] [place] [address] INR Coag (PPP) [Relative time] 1.4 {INR} High 0.9-1.1 [facility] Comment on above: Performed By: #### P TPTT ####[facility] (DEFAULT)[address] [facility] [place] [address] PT Coag (PPP) [Time] 16.7 s High 11.9-14.2 [facility] Comment on above: Performed By: #### P TPTT ####[facility] (DEFAULT)[address] [place] [address] TACROLIMUS LEVEL, TROUGH (PA E DRUG LEVEL)on 05-29-2024 Tacrolimus, Trough 7.4 ng/mL Normal Bone Veronique ow Transplant: 5.0-15.0 Kidney/Pancre atic Transplant: 0 to 3 months: 8.0-10.0, 3 to 12 months: 6.0-8.0, >12 months: 4.0-6.0 [facility] Comment on above: Order Comment: Pleas e draw at specified interval PRIOR to dose. Do not hold dose to wait for level. Specimens batched twice per day, (M-F) and once per day weekendsMethod performed is a chemiluminescent microparticle immunoasssay on the [employer]ainer i2000.The range is based on experience at [facility] and users should be aware that target concentrations vary widely depending on concomitant therapy, time post-transplant, and desired degree of immunosuppression. Performed By: #### T ACRO ####[facility] (DEFAULT)[address] [facility] [place] [address] CALCIUMon 05-28-2024 Calcium [Mass/Vol] 8.2 mg/dL Low 8.6-10.5 [facility] Comment on above: Performed By: #### I PB, HFP, CHM7, MGO, CA ####[facility] (DEFAULT)[address] [facility] [place] [address] CBC,PLATELETSon 05-28-2024 Hematocrit (Bld) [Volume fraction] 24.0 % Low 39.6-48.8 [facility] Comment on above: Performed By: #### H EMOGC ####[facility] (DEFAULT)[address] [facility] [place] [place] [address] Hemoglobin (Bld) [Mass/Vol] 7.9 g/dL Low 13.4-16.8 [facility] Comment on above: Performed By: #### H EMOGC ####[facility] (DEFAULT)[address] [place] [address] MCV (RBC) [Entitic vol] 96.0 fL High 79.0-94.5 [facility] Comment on above: Performed By: #### H EMOGC ####[facility] (DEFAULT)[address] [facility] [place] [address] Mean Cell Hgb 31.6 pg Normal 26.1-33.3 [facility] Comment on above: Performed By: #### H EMOGC ####[facility] (DEFAULT)[address] [facility] [place] [place] [address] Mean Cell Hgb Conc 32.9 g/dL Normal 31.9-36.5 [facility] Comment on above: Performed By: #### H EMOGC ####[facility] (DEFAULT)[address] [facility] [place] [address] Platelet mean volume (Bld) [Entitic vol] 12.3 fL Normal 8.7-12.3 [facility] Comment on above: Performed By: #### H EMO ####[facility] (DEFAULT)[address] [facility] [place] [address] Platelets (Bld) [#/Vol] 166 10*3/uL Normal 146-337 [facility] Comment on above: Performed By: #### H EMO ####[facility] (DEFAULT)[address] [place] [address] RBC (Bld) [#/Vol] 2.50 10*6/uL Low 4.38-5.83 [facility] Comment on above: Performed By: #### H [facility] ####[facility] (DEFAULT)[address] [facility] [place] [place] [address] RBC Distribution 16.6 % High 10.9-14.3 [facility] Comment on above: Performed By: #### H [facility] ####[facility] (DEFAULT)[address] [place] [address] WBC (Bld) [#/Vol] 16.78 10*3/uL High 3.73-10.10 [facility] Comment on above: Performed By: #### H [facility] ####[facility] (DEFAULT)[address] [place] [address] CHEM 7 (LYTES,BUN,CREA,GLUC) on 05-28-2024 Anion gap [Moles/Vol] 10 mmol/L Normal 7-[address] [facility] Comment on above: Performed By: #### I PB, HFP, CHM7, MGO, CA ####[facility] (DEFAULT)[address] [place] [address] Chloride [Moles/Vol] 103 mmol/L Normal 98-108 [facility] Comment on above: Performed By: #### I PB, HFP, CHM7, MGO, CA ####[facility] (DEFAULT)[address] [place] [address] CO2 [Moles/Vol] 29 mmol/L Normal 21-31 [facility] Comment on above: Performed By: #### I PB, HFP, CHM7, MGO, CA ####[facility] (DEFAULT)[address] [place] [address] Creatinine [Mass/Vol] 0.51 mg/dL Low 0.70-1.30 [facility] Comment on above: Performed By: #### I PB, HFP, CHM7, MGO, CA ####[facility] (DEFAULT)[address] [place] [address] eGFR, CKD-EPI, Male > Normal >=60 [facility] Comment on above: Result Comment: Repo rted eGFR is based on the CKD-EPI 2020 equation using creatinine, age, and sex. Performed By: #### I PB, HFP, CHM7, MGO, CA ####[facility] (DEFAULT)[address] [place] [address] Glucose [Mass/Vol] 77 mg/dL Normal Nonfastin -179 mg/dL; Fastin-99 [facility] Comment on above: Performed By: #### I PB, HFP, CHM7, MGO, CA ####[facility] (DEFAULT)[address] [place] [address] Osmolality [Osmolality] 291 mosm/kg Normal 278-305 [facility] Comment on above: Performed By: #### I PB, HFP, CHM7, MGO, CA ####[facility] (DEFAULT)[address] [place] [address] Potassium [Moles/Vol] 4.1 mmol/L Normal 3.5-5.0 [facility] Comment on above: Performed By: #### I PB, HFP, CHM7, MGO, CA ####[facility] (DEFAULT)[address] [place] [address] Sodium [Moles/Vol] 138 mmol/L Normal 135-145 [facility] Comment on above: Performed By: #### I PB, HFP, CHM7, MGO, CA ####[facility] (DEFAULT)[address] [place] [address] Urea nitrogen [Mass/Vol] 22 mg/dL Normal 7-25 [facility] Comment on above: Performed By: #### I PB, HFP, CHM7, MGO, CA ####[facility] (DEFAULT)[address] [place] [address] Urea nitrogen/Creatinine [Mass ratio] 43 mg/mg Normal [facility] Comment on above: Performed By: #### I PB, HFP, CHM7, MGO, CA ####[facility] (DEFAULT)[address] [facility] [place] [address] HEPATIC FUNCTION PANELon Albumin [Mass/Vol] 3.0 g/dL Low 3.5-5.0 [facility] Comment on above: Performed By: #### I PB, HFP, CHM7, MGO, CA ####[facility] (DEFAULT)[address] [place] [address] ALP [Catalytic activity/Vol] 227 U/L High 32-126 [facility] Comment on above: Performed By: #### I PB, HFP, CHM7, MGO, CA ####[facility] (DEFAULT)[address] [place] [address] ALT [Catalytic activity/Vol] 70 U/L High 10-52 [facility] Comment on above: Performed By: #### I PB, HFP, CHM7, MGO, CA ####[facility] (DEFAULT)[address] [place] [address] AST [Catalytic activity/Vol] 85 U/L High 10-39 [facility] Comment on above: Performed By: #### I PB, HFP, CHM7, MGO, CA ####[facility] (DEFAULT)[address] [place] [address] Bilirubin [Mass/Vol] 2.1 mg/dL High <1.5 [facility] Comment on above: Performed By: #### I PB, HFP, CHM7, MGO, CA ####[facility] (DEFAULT)[address] [place] [address] Bilirubin.indirect [Mass/Vol] 1.0 mg/dL High <0.3 [facility] Comment on above: Performed By: #### I PB, HFP, CHM7, MGO, CA ####[facility] (DEFAULT)[address] [place] [address] Protein [Mass/Vol] 5.3 g/dL Low 6.4-8.3 [facility] Comment on above: Performed By: #### I PB, HFP, CHM7, MGO, CA ####[facility] (DEFAULT)[address] [place] [address] LACTATE, BLOODon 05-28-2024 Lactate, Blood 1.2 mmol/L Normal 0.5-1.6 [facility] Comment on above: Performed By: #### L ACT ####[facility] (DEFAULT)[address] [place] [address] Lactate, Blood 1.3 mmol/L Normal 0.5-1.6 [facility] Comment on above: Performed By: #### L ACT ####[facility] (DEFAULT)[address] [place] [address] MAGNESIUMon 05-28-2024 Magnesium [Mass/Vol] 1.8 mg/dL Normal 1.6-2.6 [facility] Comment on above: Performed By: #### I PB, HFP, CHM7, MGO, CA ####[facility] (DEFAULT)[address] [place] [address] PHOSPHATE, INORGANICon 05-28 Phosphorous 2.9 mg/dL Normal 2.2-4.6 [facility] Comment on above: Performed By: #### I PB ####[facility] (DEFAULT)[address] [facility] [place] [place] [address] Phosphorous 1.7 mg/dL Low 2.2-4.6 [facility] Comment on above: Performed By: #### I PB, HFP, CHM7, MGO, CA ####[facility] (DEFAULT)[address] [place] [address] PT,INR,PTTon 05-28-2024 aPTT Coag (Bld) [Time] 30.6 s Normal 24.0-34.3 [facility] Comment on above: Performed By: #### P TPTT ####[facility] (DEFAULT)[address] [place], [place] [address], [place] [address] INR Coag (PPP) [Relative time] 1.6 {INR} High 0.9-1.1 [facility] Comment on above: Performed By: #### P TPTT ####[facility] (DEFAULT)[address] [facility] [place] [address] PT Coag (PPP) [Time] 18.8 s High 11.9-14.2 [facility] Comment on above: Performed By: #### P TPTT ####[facility] (DEFAULT)[address] [place] [address], [place] [address] TACROLIMUS LEVEL, TROUGH (PA E DRUG LEVEL)on 05-28-2024 Tacrolimus, Trough 11.5 ng/mL Normal Bone Veronique ow Transplant: 5.0-15.0 Kidney/Pancre atic Transplant: 0 to 3 months: 8.0-10.0, 3 to 12 months: 6.0-8.0, >12 months: 4.0-6.0 [facility] Comment on above: Order Comment: Pleas e draw at specified interval PRIOR to dose. Do not hold dose to wait for level. Specimens batched twice per day, (M-F) and once per day weekendsMethod performed is a chemiluminescent microparticle immunoasssay on the [employer] i2000.The range is based on experience at [facility] and users should be aware that target concentrations vary widely depending on concomitant therapy, time post-transplant, and desired degree of immunosuppression. Performed By: #### T ACRO ####[facility] (DEFAULT)[address] [place] [address] US ABDOMEN LIVER TRANSPLANT DOPPLERon 05-28-2024 US ABDOMEN LIVER TRANSPLANT DOPPLER Normal [facility] XR CHEST 1 VIEW PORTABLEon 0 05-28-2024 XR CHEST 1 VIEW PORTABLE Normal [facility] CALCIUMon 05-27-2024 Calcium [Mass/Vol] 8.6 mg/dL Normal 8.6-10.5 [facility] Comment on above: Performed By: #### I PB, HFP, CHM7, MGO, CA ####[facility] (DEFAULT)[address] [place] [address] Calcium [Mass/Vol] 8.4 mg/dL Low 8.6-10.5 [facility] Comment on above: Performed By: #### H FP, IPB, CHM7, MGO, CA ####[facility] (DEFAULT)[address] [facility] [place] [address] Calcium [Mass/Vol] 8.5 mg/dL Low 8.6-10.5 [facility] Comment on above: Performed By: #### I PB, HFP, CHM7, MGO, CA ####U [facility] (DEFAULT)[address] [place] [address] CBC AND ELECTRONIC DIFFon Basophils (Bld) [#/Vol] 0.04 10*3/uL Normal 0.00-0.09 [facility] Comment on above: Performed By: #### L [id number] ####[facility] (DEFAULT)[address] [place] [address] Basophils/100 WBC (Bld) 0.2 % Normal [facility] Comment on above: Performed By: #### L [id number] ####[facility] (DEFAULT)[address] [facility] [place] [place] [address] DIFF STATUS Electronic Differential Normal [facility] Comment on above: Performed By: #### L [id number] ####[facility] (DEFAULT)[address] [place] [address] Eosinophils (Bld) [#/Vol] 0.18 10*3/uL Normal 0.00-0.48 [facility] Comment on above: Performed By: #### L [id number] ####[facility] (DEFAULT)[address] [place] [address] Eosinophils/100 WBC (Bld) 0.9 % Normal [facility] Comment on above: Performed By: #### L [id number] ####[facility] (DEFAULT)[address] [place] [address] Hematocrit (Bld) [Volume fraction] 23.1 % Low 39.6-48.8 [facility] Comment on above: Performed By: #### L [id number] ####[facility] (DEFAULT)[address] [place] [address] Hemoglobin (Bld) [Mass/Vol] 7.7 g/dL Low 13.4-16.8 [facility] Comment on above: Performed By: #### L [id number] ####[facility] (DEFAULT)[address] [place] [address] Immature Grans % 1.0 % Normal [facility] Comment on above: Performed By: #### L [id number] ####[facility] (DEFAULT)[address] [place] [address] Immature Grans Absolute 0.20 K/uL High <=0.07 [facility] Comment on above: Performed By: #### L [id number] ####[facility] (DEFAULT)[address] [facility] [place] [place] [address] Lymphocytes (Bld) [#/Vol] 0.25 10*3/uL Low 0.83-3.57 [facility] Comment on above: Performed By: #### L [id number] ####[facility] (DEFAULT)[address] [place] [address] Lymphocytes/100 WBC (Bld) 1.2 % Normal [facility] Comment on above: Performed By: #### L [id number] ####[facility] (DEFAULT)[address] [facility] [place] [place] [address] MCV (RBC) [Entitic vol] 97.1 fL High 79.0-94.5 [facility] Comment on above: Performed By: #### L [id number] ####[facility] (DEFAULT)[address] [facility] [place] [address] Mean Cell Hgb 32.4 pg Normal 26.1-33.3 [facility] Comment on above: Performed By: #### L [id number] ####[facility] (DEFAULT)[address] [facility] [place] [place] [address] Mean Cell Hgb Conc 33.3 g/dL Normal 31.9-36.5 [facility] Comment on above: Performed By: #### L [id number] ####[facility] (DEFAULT)[address] [facility] [place] [place] [address] Monocytes (Bld) [#/Vol] 0.41 10*3/uL Normal 0.24-0.93 [facility] Comment on above: Performed By: #### L [id number] ####[facility] (DEFAULT)[address] [facility] [place] [place] [address] Monocytes/100 WBC (Bld) 2.0 % Normal [facility] Comment on above: Performed By: #### L [id number] ####[facility] (DEFAULT)[address] [facility] [place] [place] [address] Nucleated RBC 0.0 /100 WBC Normal <=0.2 [facility] Comment on above: Performed By: #### L [id number] ####[facility] (DEFAULT)[address] [place] [address] Platelet mean volume (Bld) [Entitic vol] 11.8 fL Normal 8.7-12.3 [facility] Comment on above: Performed By: #### L [id number] ####[facility] (DEFAULT)[address] [place] [address] Platelets (Bld) [#/Vol] 146 10*3/uL Normal 146-337 [facility] Comment on above: Performed By: #### L [id number] ####[facility] (DEFAULT)[address] [facility] [place] [address] RBC (Bld) [#/Vol] 2.38 10*6/uL Low 4.38-5.83 [facility] Comment on above: Performed By: #### L [id number] ####[facility] (DEFAULT)[address] [place] [address] RBC Distribution 17.5 % High 10.9-14.3 [facility] Comment on above: Performed By: #### L [id number] ####[facility] (DEFAULT)[address] [place] [address] Segs + Bands Auto 94.7 % Normal [facility] Comment on above: Performed By: #### L [id number] ####[facility] (DEFAULT)[address] [place] [address] Segs + Bands,Absolute Auto 19.21 K/uL High 1.57-6.19 [facility] Comment on above: Performed By: #### L [id number] ####[facility] (DEFAULT)[address] [place] [address] WBC (Bld) [#/Vol] 20.29 10*3/uL High 3.73-10.10 [facility] Comment on above: Performed By: #### L [id number] ####[facility] (DEFAULT)[address] [place] [address] Abs Baso Auto < Normal 0.00-0.09 [facility] Comment on above: Performed By: #### L [id number] ####[facility] (DEFAULT)[address] [place] [address] Abs Eos Auto < Normal 0.00-0.48 [facility] Comment on above: Performed By: #### L [id number] ####[facility] (DEFAULT)[address] [place] [address] Basophils/100 WBC (Bld) 0.1 % Normal [facility] Comment on above: Performed By: #### L [id number] ####[facility] (DEFAULT)[address] [place] [address] DIFF STATUS Electronic Differential Normal [facility] Comment on above: Performed By: #### L [id number] ####[facility] (DEFAULT)[address] [place] [address] Eosinophils/100 WBC (Bld) 0.0 % Normal [facility] Comment on above: Performed By: #### L [id number] ####[facility] (DEFAULT)[address] [place] [address] Hematocrit (Bld) [Volume fraction] 23.7 % Low 39.6-48.8 [facility] Comment on above: Performed By: #### L [id number] ####[facility] (DEFAULT)[address] [place] [address] Hemoglobin (Bld) [Mass/Vol] 8.0 g/dL Low 13.4-16.8 [facility] Comment on above: Performed By: #### L [id number] ####[facility] (DEFAULT)[address] [place] [address] Immature Grans % 0.5 % Normal [facility] Comment on above: Performed By: #### L [id number] ####[facility] (DEFAULT)[address] [place] [address] Immature Grans Absolute 0.11 K/uL High <=0.07 [facility] Comment on above: Performed By: #### L [id number] ####[facility] (DEFAULT)[address] [place] [address] Lymphocytes (Bld) [#/Vol] 0.20 10*3/uL Low 0.83-3.57 [facility] Comment on above: Performed By: #### L [id number] ####[facility] (DEFAULT)[address] [place] [address] Lymphocytes/100 WBC (Bld) 1.0 % Normal [facility] Comment on above: Performed By: #### L [id number] ####[facility] (DEFAULT)[address] [place] [address] MCV (RBC) [Entitic vol] 94.8 fL High 79.0-94.5 [facility] Comment on above: Performed By: #### L [id number] ####[facility] (DEFAULT)[address] [place] [address] Mean Cell Hgb 32.0 pg Normal 26.1-33.3 [facility] Comment on above: Performed By: #### L [id number] ####[facility] (DEFAULT)[address] [place] [address] Mean Cell Hgb Conc 33.8 g/dL Normal 31.9-36.5 [facility] Comment on above: Performed By: #### L [id number] ####[facility] (DEFAULT)[address] [place] [address] Monocytes (Bld) [#/Vol] 0.26 10*3/uL Normal 0.24-0.93 [facility] Comment on above: Performed By: #### L [id number] ####[facility] (DEFAULT)[address] [place] [address] Monocytes/100 WBC (Bld) 1.3 % Normal [facility] Comment on above: Performed By: #### L [id number] ####[facility] (DEFAULT)[address] [place] [address] Nucleated RBC 0.0 /100 WBC Normal <=0.2 [facility] Comment on above: Performed By: #### L [id number] ####[facility] (DEFAULT)[address] [facility] [place] [address] Platelet mean volume (Bld) [Entitic vol] 11.4 fL Normal 8.7-12.3 [facility] Comment on above: Performed By: #### L [id number] ####[facility] (DEFAULT)[address] [facility] [place] [address] Platelets (Bld) [#/Vol] 146 10*3/uL Normal 146-337 [facility] Comment on above: Performed By: #### L [id number] ####[facility] (DEFAULT)[address] [place] [address] RBC (Bld) [#/Vol] 2.50 10*6/uL Low 4.38-5.83 [facility] Comment on above: Performed By: #### L [id number] ####[facility] (DEFAULT)[address] [place] [address] RBC Distribution 17.6 % High 10.9-14.3 [facility] Comment on above: Performed By: #### L [id number] ####[facility] (DEFAULT)[address] [place] [address] Segs + Bands Auto 97.1 % Normal [facility] Comment on above: Performed By: #### L [id number] ####[facility] (DEFAULT)[address] [place] [address] Segs + Bands,Absolute Auto 19.47 K/uL High 1.57-6.19 [facility] Comment on above: Performed By: #### L [id number] ####[facility] (DEFAULT)[address] [facility] [place] [address] WBC (Bld) [#/Vol] 20.07 10*3/uL High 3.73-10.10 [facility] Comment on above: Performed By: #### L [id number] ####[facility] (DEFAULT)[address] [facility] [place] [place] [address] Abs Eos Auto < Normal 0.00-0.48 [facility] Comment on above: Performed By: #### L [id number] ####[facility] (DEFAULT)[address] [facility] [place] [address] Basophils (Bld) [#/Vol] 0.05 10*3/uL Normal 0.00-0.09 [facility] Comment on above: Performed By: #### L [id number] ####[facility] (DEFAULT)[address] [facility] [place] [address] Basophils/100 WBC (Bld) 0.3 % Normal [facility] Comment on above: Performed By: #### L [id number] ####[facility] (DEFAULT)[address] [facility] [place] [address] DIFF STATUS Electronic Differential Normal [facility] Comment on above: Performed By: #### L [id number] ####[facility] (DEFAULT)[address] [facility] [place] [address] Eosinophils/100 WBC (Bld) 0.0 % Normal [facility] Comment on above: Performed By: #### L [id number] ####[facility] (DEFAULT)[address] [facility] [place] [address] Hematocrit (Bld) [Volume fraction] 24.0 % Low 39.6-48.8 [facility] Comment on above: Performed By: #### L [id number] ####[facility] (DEFAULT)[address] [place] [address], [place] [address] Hemoglobin (Bld) [Mass/Vol] 7.8 g/dL Low 13.4-16.8 [facility] Comment on above: Result Comment: Resu lts inconsistent with previous results. Performed By: #### L [id number] ####[facility] (DEFAULT)[address] [facility] [place] [address] Immature Grans % 0.7 % Normal [facility] Comment on above: Performed By: #### L [id number] ####[facility] (DEFAULT)[address] [place] [address], [place] [address] Immature Grans Absolute 0.14 K/uL High <=0.07 [facility] Comment on above: Performed By: #### L [id number] ####[facility] (DEFAULT)[address] [place] [address], [place] [address] Lymphocytes (Bld) [#/Vol] 0.17 10*3/uL Low 0.83-3.57 [facility] Comment on above: Performed By: #### L [id number] ####[facility] (DEFAULT)[address] [place] [address], [place] [address] Lymphocytes/100 WBC (Bld) 0.9 % Normal [facility] Comment on above: Performed By: #### L [id number] ####[facility] (DEFAULT)[address] [place] [address] MCV (RBC) [Entitic vol] 95.6 fL High 79.0-94.5 [facility] Comment on above: Performed By: #### L [id number] ####[facility] (DEFAULT)[address] [place] [address] Mean Cell Hgb 31.1 pg Normal 26.1-33.3 [facility] Comment on above: Performed By: #### L [id number] ####[facility] (DEFAULT)[address] [facility] [place] [address] Mean Cell Hgb Conc 32.5 g/dL Normal 31.9-36.5 [facility] Comment on above: Performed By: #### L [id number] ####[facility] (DEFAULT)[address] [place] [address] Monocytes (Bld) [#/Vol] 0.25 10*3/uL Normal 0.24-0.93 [facility] Comment on above: Performed By: #### L [id number] ####[facility] (DEFAULT)[address] [facility] [place] [address] Monocytes/100 WBC (Bld) 1.3 % Normal [facility] Comment on above: Performed By: #### L [id number] ####[facility] (DEFAULT)[address] [facility] [place] [address] Nucleated RBC 0.1 /100 WBC Normal <=0.2 [facility] Comment on above: Performed By: #### L [id number] ####[facility] (DEFAULT)[address] [facility] [place] [address] Platelet mean volume (Bld) [Entitic vol] 11.5 fL Normal 8.7-12.3 [facility] Comment on above: Performed By: #### L [id number] ####[facility] (DEFAULT)[address] [facility] [place] [address] Platelets (Bld) [#/Vol] 155 10*3/uL Normal 146-337 [facility] Comment on above: Performed By: #### L [id number] ####[facility] (DEFAULT)[address] [facility] [place] [address] RBC (Bld) [#/Vol] 2.51 10*6/uL Low 4.38-5.83 [facility] Comment on above: Performed By: #### L [id number] ####[facility] (DEFAULT)[address] [facility] [place] [address] RBC Distribution 17.4 % High 10.9-14.3 [facility] Comment on above: Performed By: #### L [id number] ####[facility] (DEFAULT)[address] [place] [address] Segs + Bands Auto 96.8 % Normal [facility] Comment on above: Performed By: #### L [id number] ####[facility] (DEFAULT)[address] [facility] [place] [address] Segs + Bands,Absolute Auto 18.98 K/uL High 1.57-6.19 [facility] Comment on above: Performed By: #### L [id number] ####[facility] (DEFAULT)[address] [facility] [place] [address] WBC (Bld) [#/Vol] 19.59 10*3/uL High 3.73-10.10 [facility] Comment on above: Performed By: #### L [id number] ####[facility] (DEFAULT)[address] [place] [address] CHEM 7 (LYTES,BUN,CREA,GLUC) on 05-27-2024 Anion gap [Moles/Vol] 11 mmol/L Normal 7-[address] [facility] Comment on above: Performed By: #### I PB, HFP, CHM7, MGO, CA ####[facility] (DEFAULT)[address] [place] [address] Chloride [Moles/Vol] 103 mmol/L Normal 98-108 [facility] Comment on above: Performed By: #### I PB, HFP, CHM7, MGO, CA ####[facility] (DEFAULT)[address] [facility] [place] [address] CO2 [Moles/Vol] 30 mmol/L Normal 21-31 [facility] Comment on above: Performed By: #### I PB, HFP, CHM7, MGO, CA ####[facility] (DEFAULT)[address] [place] [address] Creatinine [Mass/Vol] 0.50 mg/dL Low 0.70-1.30 [facility] Comment on above: Performed By: #### I PB, HFP, CHM7, MGO, CA ####[facility] (DEFAULT)[address] [facility] [place] [address] eGFR, CKD-EPI, Male > Normal >=60 [facility] Comment on above: Result Comment: Repo rted eGFR is based on the CKD-EPI 2020 equation using creatinine, age, and sex. Performed By: #### I PB, HFP, CHM7, MGO, CA ####[facility] (DEFAULT)[address] [place] [address] Glucose [Mass/Vol] 118 mg/dL Normal Nonfastin -179 mg/dL; Fastin-99 [facility] Comment on above: Performed By: #### I PB, HFP, CHM7, MGO, CA ####[facility] (DEFAULT)[address] [facility] [place] [address] Osmolality [Osmolality] 298 mosm/kg Normal 278-305 [facility] Comment on above: Performed By: #### I PB, HFP, CHM7, MGO, CA ####[facility] (DEFAULT)[address] [facility] [place] [address] Potassium [Moles/Vol] 4.2 mmol/L Normal 3.5-5.0 [facility] Comment on above: Performed By: #### I PB, HFP, CHM7, MGO, CA ####[facility] (DEFAULT)[address] [facility] [place] [place] [address] Sodium [Moles/Vol] 140 mmol/L Normal 135-145 [facility] Comment on above: Performed By: #### I PB, HFP, CHM7, MGO, CA ####[facility] (DEFAULT)[address] [place] [address] Urea nitrogen [Mass/Vol] 22 mg/dL Normal 7-25 [facility] Comment on above: Performed By: #### I PB, HFP, CHM7, MGO, CA ####[facility] (DEFAULT)[address] [place] [address] Urea nitrogen/Creatinine [Mass ratio] 44 mg/mg Normal [facility] Comment on above: Performed By: #### I PB, HFP, CHM7, MGO, CA ####[facility] (DEFAULT)[address] [facility] [place] [address] Anion gap [Moles/Vol] 9 mmol/L Normal 7-17 [facility] Comment on above: Performed By: #### H FP, IPB, CHM7, MGO, CA ####[facility] (DEFAULT)[address] [facility] [place] [address] Chloride [Moles/Vol] 104 mmol/L Normal 98-108 [facility] Comment on above: Performed By: #### H FP, IPB, CHM7, MGO, CA ####[facility] (DEFAULT)[address] [facility] [place] [address] CO2 [Moles/Vol] 33 mmol/L High 21-31 [facility] Comment on above: Performed By: #### H FP, IPB, CHM7, MGO, CA ####[facility] (DEFAULT)[address] [facility] [place] [address] Creatinine [Mass/Vol] 0.48 mg/dL Low 0.70-1.30 [facility] Comment on above: Performed By: #### H FP, IPB, CHM7, MGO, CA ####[facility] (DEFAULT)[address] [facility] [place] [address] eGFR, CKD-EPI, Male > Normal >=60 [facility] Comment on above: Result Comment: Repo rted eGFR is based on the CKD-EPI 2020 equation using creatinine, age, and sex. Performed By: #### H JAKE IPB, CHM7, MGO, CA ####[facility] (DEFAULT)[address] [place] [address] Glucose [Mass/Vol] 119 mg/dL Normal Nonfastin -179 mg/dL; Fastin-99 [facility] Comment on above: Performed By: #### H FP, IPB, CHM7, MGO, CA ####[facility] (DEFAULT)[address] [place] [address] Osmolality [Osmolality] 301 mosm/kg Normal 278-305 [facility] Comment on above: Performed By: #### H FP, IPB, CHM7, MGO, CA ####[facility] (DEFAULT)[address] [facility] [place] [address] Potassium [Moles/Vol] 4.2 mmol/L Normal 3.5-5.0 [facility] Comment on above: Performed By: #### H JAKE, IPB, CHM7, MGO, CA ####[facility] (DEFAULT)[address] [place] [address] Sodium [Moles/Vol] 142 mmol/L Normal 135-145 [facility] Comment on above: Performed By: #### H FP, IPB, CHM7, MGO, CA ####[facility] (DEFAULT)[address] [facility] [place] [address] Urea nitrogen [Mass/Vol] 21 mg/dL Normal 7-25 [facility] Comment on above: Performed By: #### H FP, IPB, CHM7, MGO, CA ####[facility] (DEFAULT)[address] [facility] [place] [address] Urea nitrogen/Creatinine [Mass ratio] 44 mg/mg Normal [facility] Comment on above: Performed By: #### H FP, IPB, CHM7, MGO, CA ####[facility] (DEFAULT)[address] [place] [address] Anion gap [Moles/Vol] 10 mmol/L Normal 7-17 [facility] Comment on above: Performed By: #### I PB, HFP, CHM7, MGO, CA ####[facility] (DEFAULT)[address] [facility] [place] [address] Chloride [Moles/Vol] 104 mmol/L Normal 98-108 [facility] Comment on above: Performed By: #### I PB, HFP, CHM7, MGO, CA ####[facility] (DEFAULT)[address] [place] [address] CO2 [Moles/Vol] 31 mmol/L Normal 21-31 [facility] Comment on above: Performed By: #### I PB, HFP, CHM7, MGO, CA ####[facility] (DEFAULT)[address] [place] [address] Creatinine [Mass/Vol] 0.45 mg/dL Low 0.70-1.30 [facility] Comment on above: Performed By: #### I PB, HFP, CHM7, MGO, CA ####[facility] (DEFAULT)[address] [facility] [place] [address] eGFR, CKD-EPI, Male > Normal >=60 [facility] Comment on above: Result Comment: Repo rted eGFR is based on the CKD-EPI 2020 equation using creatinine, age, and sex. Performed By: #### I PB, HFP, CHM7, MGO, CA ####[facility] (DEFAULT)[address] [facility] [place] [address] Glucose [Mass/Vol] 132 mg/dL Normal Nonfastin -179 mg/dL; Fastin-99 [facility] Comment on above: Performed By: #### I PB, HFP, CHM7, MGO, CA ####[facility] (DEFAULT)[address] [place] [address] Osmolality [Osmolality] 299 mosm/kg Normal 278-305 [facility] Comment on above: Performed By: #### I PB, HFP, CHM7, MGO, CA ####[facility] (DEFAULT)[address] [place] [address] Potassium [Moles/Vol] 4.3 mmol/L Normal 3.5-5.0 [facility] Comment on above: Performed By: #### I PB, HFP, CHM7, MGO, CA ####[facility] (DEFAULT)[address] [facility] [place] [address] Sodium [Moles/Vol] 141 mmol/L Normal 135-145 [facility] Comment on above: Performed By: #### I PB, HFP, CHM7, MGO, CA ####[facility] (DEFAULT)[address] [facility] [place] [address] Urea nitrogen [Mass/Vol] 19 mg/dL Normal 7-25 [facility] Comment on above: Performed By: #### I PB, HFP, CHM7, MGO, CA ####[facility] (DEFAULT)[address] [facility] [place] [address] Urea nitrogen/Creatinine [Mass ratio] 42 mg/mg Normal [facility] Comment on above: Performed By: #### I PB, HFP, CHM7, MGO, CA ####[facility] (DEFAULT)[address] [facility] [place] [address] FIBRINOGEN, CLOTTABLEon 03-2 Fibrinogen-Clottable 330 mg/dL Normal 220-410 [facility] Comment on above: Result Comment: Func tional Fibrinogen (activity) levels can be affected by direct thrombin inhibitors such as heparins (>2.0 IU/ml) and dabigatran. Abnormal results should be interpreted with caution. Performed By: #### P TPTT, FIB ####[facility] (DEFAULT)[address] [place] [address] Fibrinogen-Clottable 335 mg/dL Normal 220-410 [facility] Comment on above: Result Comment: Func tional Fibrinogen (activity) levels can be affected by direct thrombin inhibitors such as heparins (>2.0 IU/ml) and dabigatran. Abnormal results should be interpreted with caution. Performed By: #### P TPTT, FIB ####[facility] (DEFAULT)[address] [place] [address] Fibrinogen-Clottable 348 mg/dL Normal 220-410 [facility] Comment on above: Result Comment: Func tional Fibrinogen (activity) levels can be affected by direct thrombin inhibitors such as heparins (>2.0 IU/ml) and dabigatran. Abnormal results should be interpreted with caution. Performed By: #### P TPTT, FIB ####[facility] (DEFAULT)[address] [place] [address] HEMOGLOBIN & HEMATOCRITon Hematocrit (Bld) [Volume fraction] 24.8 % Low 39.6-48.8 [facility] Comment on above: Performed By: #### H H ####[facility] (DEFAULT)[address] [place] [address] Hemoglobin (Bld) [Mass/Vol] 8.2 g/dL Low 13.4-16.8 [facility] Comment on above: Performed By: #### H H ####[facility] (DEFAULT)[address] [place] [address], [place] [address] Hematocrit (Bld) [Volume fraction] 24.1 % Low 39.6-48.8 [facility] Comment on above: Performed By: #### H H ####[facility] (DEFAULT)[address] [place] [address], [place] [address] Hemoglobin (Bld) [Mass/Vol] 7.8 g/dL Low 13.4-16.8 [facility] Comment on above: Performed By: #### H H ####[facility] (DEFAULT)[address] [place] [address] HEPATIC FUNCTION PANELon Albumin [Mass/Vol] 3.4 g/dL Low 3.5-5.0 [facility] Comment on above: Performed By: #### I PB, HFP, CHM7, MGO, CA ####[facility] (DEFAULT)[address] [place] [address] ALP [Catalytic activity/Vol] 249 U/L High 32-126 [facility] Comment on above: Performed By: #### I PB, HFP, CHM7, MGO, CA ####[facility] (DEFAULT)[address] [place] [address] ALT [Catalytic activity/Vol] 96 U/L High 10-52 [facility] Comment on above: Performed By: #### I PB, HFP, CHM7, MGO, CA ####[facility] (DEFAULT)[address] [place] [address] AST [Catalytic activity/Vol] 166 U/L High 10-39 [facility] Comment on above: Performed By: #### I PB, HFP, CHM7, MGO, CA ####[facility] (DEFAULT)[address] [place] [address] Bilirubin [Mass/Vol] 2.6 mg/dL High <1.5 [facility] Comment on above: Performed By: #### I PB, HFP, CHM7, MGO, CA ####[facility] (DEFAULT)[address] [place] [address] Bilirubin.indirect [Mass/Vol] 1.2 mg/dL High <0.3 [facility] Comment on above: Performed By: #### I PB, HFP, CHM7, MGO, CA ####[facility] (DEFAULT)[address] [place] [address] Protein [Mass/Vol] 5.8 g/dL Low 6.4-8.3 [facility] Comment on above: Performed By: #### I PB, HFP, CHM7, MGO, CA ####[facility] (DEFAULT)[address] [place] [address] Albumin [Mass/Vol] 3.2 g/dL Low 3.5-5.0 [facility] Comment on above: Performed By: #### H FP, IPB, CHM7, MGO, CA ####[facility] (DEFAULT)[address] [place] [address] ALP [Catalytic activity/Vol] 231 U/L High 32-126 [facility] Comment on above: Performed By: #### H FP, IPB, CHM7, MGO, CA ####[facility] (DEFAULT)[address] [place] [address] ALT [Catalytic activity/Vol] 102 U/L High 10-52 [facility] Comment on above: Performed By: #### H FP, IPB, CHM7, MGO, CA ####[facility] (DEFAULT)[address] [place] [address] AST [Catalytic activity/Vol] 185 U/L High 10-39 [facility] Comment on above: Performed By: #### H FP, IPB, CHM7, MGO, CA ####[facility] (DEFAULT)[address] [place] [address] Bilirubin [Mass/Vol] 2.6 mg/dL High <1.5 [facility] Comment on above: Performed By: #### H FP, IPB, CHM7, MGO, CA ####[facility] (DEFAULT)[address] [place] [address] Bilirubin.indirect [Mass/Vol] 1.2 mg/dL High <0.3 [facility] Comment on above: Performed By: #### H FP, IPB, CHM7, MGO, CA ####[facility] (DEFAULT)[address] [place] [address] Protein [Mass/Vol] 5.6 g/dL Low 6.4-8.3 [facility] Comment on above: Performed By: #### H FP, IPB, CHM7, MGO, CA ####[facility] (DEFAULT)[address] [place] [address] Albumin [Mass/Vol] 3.4 g/dL Low 3.5-5.0 [facility] Comment on above: Performed By: #### I PB, HFP, CHM7, MGO, CA ####[facility] (DEFAULT)[address] [place] [address] ALP [Catalytic activity/Vol] 237 U/L High 32-126 [facility] Comment on above: Performed By: #### I PB, HFP, CHM7, MGO, CA ####[facility] (DEFAULT)[address] [place] [address] ALT [Catalytic activity/Vol] 110 U/L High 10-52 [facility] Comment on above: Performed By: #### I PB, HFP, CHM7, MGO, CA ####[facility] (DEFAULT)[address] [place] [address] AST [Catalytic activity/Vol] 229 U/L High 10-39 [facility] Comment on above: Performed By: #### I PB, HFP, CHM7, MGO, CA ####[facility] (DEFAULT)[address] [place] [address] Bilirubin [Mass/Vol] 3.0 mg/dL High <1.5 [facility] Comment on above: Performed By: #### I PB, HFP, CHM7, MGO, CA ####[facility] (DEFAULT)[address] [place] [address] Bilirubin.indirect [Mass/Vol] 1.4 mg/dL High <0.3 [facility] Comment on above: Performed By: #### I PB, HFP, CHM7, MGO, CA ####[facility] (DEFAULT)[address] [place] [address] Protein [Mass/Vol] 5.8 g/dL Low 6.4-8.3 [facility] Comment on above: Performed By: #### I PB, HFP, CHM7, MGO, CA ####[facility] (DEFAULT)[address] [place] [address] IONIZED CALCIUM, WHOLE BLOOD on 05-27-2024 ICA 4.55 mg/dL Low 4.60-5.30 [facility] Comment on above: Performed By: #### I CA ####[facility] (DEFAULT)[address] [place] [address] ICA 4.49 mg/dL Low 4.60-5.30 [facility] Comment on above: Performed By: #### I CA ####[facility] (DEFAULT)[address] [place] [address], [place] [address] ICA 4.24 mg/dL Low 4.60-5.30 [facility] Comment on above: Performed By: #### I CA ####[facility] (DEFAULT)[address] [place] [address], [place] [address] LACTATE, BLOODon 05-27-2024 Lactate, Blood 1.5 mmol/L Normal 0.5-1.6 [facility] Comment on above: Performed By: #### L ACT ####[facility] (DEFAULT)[address] [place] [address], [place] [address] MAGNESIUMon 05-27-2024 Magnesium [Mass/Vol] 2.0 mg/dL Normal 1.6-2.6 [facility] Comment on above: Performed By: #### I PB, HFP, CHM7, MGO, CA ####[facility] (DEFAULT)[address] [place] [address] Magnesium [Mass/Vol] 2.1 mg/dL Normal 1.6-2.6 [facility] Comment on above: Performed By: #### H FP, IPB, CHM7, MGO, CA ####[facility] (DEFAULT)[address] [place] [address] Magnesium [Mass/Vol] 2.2 mg/dL Normal 1.6-2.6 [facility] Comment on above: Performed By: #### I PB, HFP, CHM7, MGO, CA ####[facility] (DEFAULT)[address] [place] [address] PHOSPHATE, INORGANICon 05-27 Phosphorous 2.5 mg/dL Normal 2.2-4.6 [facility] Comment on above: Performed By: #### I PB, HFP, CHM7, MGO, CA ####[facility] (DEFAULT)[address] [place] [address] Phosphorous 2.6 mg/dL Normal 2.2-4.6 [facility] Comment on above: Performed By: #### H FP, IPB, CHM7, MGO, CA ####[facility] (DEFAULT)[address] [place] [address] Phosphorous 3.1 mg/dL Normal 2.2-4.6 [facility] Comment on above: Performed By: #### I PB, HFP, CHM7, MGO, CA ####[facility] (DEFAULT)[address] [place] [address] PT,INR,PTTon 05-27-2024 aPTT Coag (Bld) [Time] 27.3 s Normal 24.0-34.3 [facility] Comment on above: Performed By: #### P TPTT, FIB ####[facility] (DEFAULT)[address] [place] [address] INR Coag (PPP) [Relative time] 1.6 {INR} High 0.9-1.1 [facility] [facility] Comment on above: Performed By: #### P TPTT, FIB ####[facility] (DEFAULT)[address] [place] [address] PT Coag (PPP) [Time] 19.1 s High 11.9-14.2 [facility] Comment on above: Performed By: #### P TPTT, FIB ####[facility] (DEFAULT)[address] [place] [address] aPTT Coag (Bld) [Time] 28.5 s Normal 24.0-34.3 [facility] Comment on above: Performed By: #### P TPTT, FIB ####[facility] (DEFAULT)[address] [place] [address] INR Coag (PPP) [Relative time] 1.7 {INR} High 0.9-1.1 [facility] Comment on above: Performed By: #### P TPTT, FIB ####[facility] (DEFAULT)[address] [place] [address] PT Coag (PPP) [Time] 20.2 s High 11.9-14.2 [facility] Comment on above: Performed By: #### P TPTT, FIB ####[facility] (DEFAULT)[address] [place] [address] aPTT Coag (Bld) [Time] 31.0 s Normal 24.0-34.3 [facility] Comment on above: Performed By: #### P TPTT, FIB ####[facility] (DEFAULT)[address] [place] [address] INR Coag (PPP) [Relative time] 1.7 {INR} High 0.9-1.1 [facility] Comment on above: Performed By: #### P TPTT, FIB ####[facility] (DEFAULT)[address] [place] [id number] PT Coag (PPP) [Time] 20.3 s High 11.9-14.2 [facility] Comment on above: Performed By: #### P TPTT, FIB ####[facility] (DEFAULT)[address] [place] [address] TACROLIMUS LEVEL, TROUGH (PA E DRUG LEVEL)on 05-27-2024 Tacrolimus, Trough 7.7 ng/mL Normal Bone Veronique ow Transplant: 5.0-15.0 Kidney/Pancre atic Transplant: 0 to 3 months: 8.0-10.0, 3 to 12 months: 6.0-8.0, >12 months: 4.0-6.0 [facility] Comment on above: Order Comment: Pleas e draw at specified interval PRIOR to dose. Do not hold dose to wait for level. Specimens batched twice per day, (M-) and once per day weekendsMethod performed is a chemiluminescent microparticle immunoasssay on the [employer] i2000.The range is based on experience at [facility] and users should be aware that target concentrations vary widely depending on concomitant therapy, time post-transplant, and desired degree of immunosuppression. Performed By: #### T ACRO ####[facility] (DEFAULT)[address] [place] [address] XR CHEST 1 VIEW PORTABLEon 0 05-27-2024 XR CHEST 1 VIEW PORTABLE Normal [facility] ARTERIAL BLOOD GAS PLUS LACT ATEon 05-26-2024 Base Excess 2.1 mmol/L Normal -3.0-3.0 [facility] Comment on above: Performed By: #### G AS5L ####[facility] (DEFAULT)[address] [place] [address] HCO3 (Bld) [Moles/Vol] 27 mmol/L Normal [facility] Comment on above: Performed By: #### G AS5L ####[facility]DEFAULT[facility] [place] [address] Lactate, Whole Blood 3.6 mmol/L High 0.5-1.6 [facility] Comment on above: Result Comment: Lact ate results >/= 2.0 mmol/L should be followed up with a measurement 2 hours later for patients with suspicion of sepsis. Performed By: #### G AS5L ####[facility] (DEFAULT)[address] [place] [address] Oxygen saturation in Blood 98 % Normal 94-98 [facility] Comment on above: Performed By: #### G AS5L ####[facility] (DEFAULT)[address] [place] [address] pCO2 41 mm Hg Normal 32-48 [facility] Comment on above: Performed By: #### G AS5L ####[facility] (DEFAULT)[address] [place] [address] pH, Arterial 7.42 Normal 7.35-7.45 [facility] Comment on above: Performed By: #### G AS5L ####[facility] (DEFAULT)[address] [place] [address] pO2 103 mm Hg Normal 83-108 [facility] Comment on above: Performed By: #### G AS5L ####[facility] (DEFAULT)[address] [place] [address] Specimen type Nom (Spec) Arterial Normal [facility] Comment on above: Performed By: #### G AS5L ####[facility] (DEFAULT)[address] [place] [address] Base Excess -0.2 mmol/L Normal -3.0-3.0 [facility] Comment on above: Performed By: #### G AS5L ####[facility] (DEFAULT)[address] [place] [address] HCO3 (Bld) [Moles/Vol] 25 mmol/L Normal 22-28 [facility] Comment on above: Performed By: #### G AS5L ####[facility] (DEFAULT)[address] [place] [address], [place] [address] Lactate, Whole Blood 6.9 mmol/L Critically high 0.5-1.6 [facility] Comment on above: Result Comment: Lact ate results >/= 2.0 mmol/L should be followed up with a measurement 2 hours later for patients with suspicion of sepsis. Performed By: #### G AS5L ####[facility] (DEFAULT)[address] [place] [address], [place] [address] Oxygen saturation in Blood 98 % Normal 94-98 [facility] Comment on above: Performed By: #### G AS5L ####[facility] (DEFAULT)[address] [place] [address] pCO2 41 mm Hg Normal 32-48 [facility] Comment on above: Performed By: #### G AS5L ####[facility] (DEFAULT)[address] [place] [address] pH, Arterial 7.39 Normal 7.35-7.45 [facility] Comment on above: Performed By: #### G AS5L ####[facility] (DEFAULT)[address] [place] [address] pO2 102 mm Hg Normal 83-108 [facility] Comment on above: Performed By: #### G AS5L ####[facility] (DEFAULT)[address] [place] [address] Specimen type Nom (Spec) Arterial Normal [facility] Comment on above: Performed By: #### G AS5L ####[facility] (DEFAULT)[address] [place] [address] CALCIUMon 05-26-2024 Calcium [Mass/Vol] 8.8 mg/dL Normal 8.6-10.5 [facility] Comment on above: Performed By: #### I PB, HFP, CHM7, MGO, CA ####[facility] (DEFAULT)[address] [facility] [place] [address] Calcium [Mass/Vol] 8.9 mg/dL Normal 8.6-10.5 [facility] Comment on above: Performed By: #### I PB, HFP, CHM7, MGO, CA ####[facility] (DEFAULT)[address] [place] [address] Calcium [Mass/Vol] 8.9 mg/dL Normal 8.6-10.5 [facility] Comment on above: Performed By: #### H FP, IPB, CHM7, MGO, CA ####[facility] (DEFAULT)[address] [facility] [place] [address] Calcium [Mass/Vol] 9.1 mg/dL Normal 8.6-10.5 [facility] Comment on above: Performed By: #### H FP, IPB, MGO, CHM7, CA ####[facility] (DEFAULT)[address] [facility] [place] [address] CBC AND ELECTRONIC DIFFon Abs Baso Auto < Normal 0.00-0.09 [facility] Comment on above: Performed By: #### L [id number] ####[facility] (DEFAULT)[address] [place] [address] Abs Eos Auto < Normal 0.00-0.48 [facility] Comment on above: Performed By: #### L [id number] ####[facility] (DEFAULT)[address] [place] [address] Basophils/100 WBC (Bld) 0.2 % Normal [facility] Comment on above: Performed By: #### L [id number] ####[facility] (DEFAULT)[address] [facility] [place] [address] DIFF STATUS Electronic Differential Normal [facility] Comment on above: Performed By: #### L [id number] ####[facility] (DEFAULT)[address] [place] [address] Eosinophils/100 WBC (Bld) 0.0 % Normal [facility] Comment on above: Performed By: #### L [id number] ####[facility] (DEFAULT)[address] [facility] [place] [address] Hematocrit (Bld) [Volume fraction] 37.1 % Low 39.6-48.8 [facility] Comment on above: Result Comment: This is an appended report. These results have been appended to a previously preliminary verified report. Performed By: #### L [id number] ####[facility] (DEFAULT)[address] [place] [address], [place] [address] Hemoglobin (Bld) [Mass/Vol] 12.4 g/dL Low 13.4-16.8 [facility] Comment on above: Result Comment: This is an appended report. These results have been appended to a previously preliminary verified report. Performed By: #### L [id number] ####[facility] (DEFAULT)[address] [place] [address], [place] [address] Immature Grans % 0.4 % Normal [facility] Comment on above: Performed By: #### L [id number] ####[facility] (DEFAULT)[address] [place] [address] Immature Grans Absolute 0.05 K/uL Normal <=0.07 [facility] Comment on above: Performed By: #### L [id number] ####[facility] (DEFAULT)[address] [place] [address], [place] [address] Lymphocytes (Bld) [#/Vol] 0.10 10*3/uL Low 0.83-3.57 [facility] Comment on above: Performed By: #### L [id number] ####[facility] (DEFAULT)[address] [place] [address] Lymphocytes/100 WBC (Bld) 0.8 % Normal [facility] Comment on above: Performed By: #### L [id number] ####[facility] (DEFAULT)[address] [place] [address] MCV (RBC) [Entitic vol] 94.4 fL Normal 79.0-94.5 [facility] Comment on above: Result Comment: This is an appended report. These results have been appended to a previously preliminary verified report. Performed By: #### L [id number] ####[facility] (DEFAULT)[address] [facility] [place] [address] Mean Cell Hgb 31.6 pg Normal 26.1-33.3 [facility] Comment on above: Result Comment: This is an appended report. These results have been appended to a previously preliminary verified report. Performed By: #### L [id number] ####[facility] (DEFAULT)[address] [place] [address] Mean Cell Hgb Conc 33.4 g/dL Normal 31.9-36.5 [facility] Comment on above: Result Comment: This is an appended report. These results have been appended to a previously preliminary verified report. Performed By: #### L [id number] ####[facility] (DEFAULT)[address] [place] [address], [place] [address] Mean Platelet Volume Normal [facility] Comment on above: Result Comment: Not measured Performed By: #### L [id number] ####[facility] (DEFAULT)[address] [place] [address], [place] [address] Monocytes (Bld) [#/Vol] 0.15 10*3/uL Low 0.24-0.93 [facility] Comment on above: Performed By: #### L [id number] ####[facility] (DEFAULT)[address] [place] [address] Monocytes/100 WBC (Bld) 1.2 % Normal [facility] Comment on above: Performed By: #### L [id number] ####[facility] (DEFAULT)[address] [place] [address] Nucleated RBC 0.0 /100 WBC Normal <=0.2 [facility] Comment on above: Performed By: #### L [id number] ####[facility] (DEFAULT)[address] [place] [address] Platelets (Bld) [#/Vol] 112 10*3/uL Low 146-337 [facility] Comment on above: Result Comment: This is an appended report. These results have been appended to a previously preliminary verified report. Performed By: #### L [id number] ####[facility] (DEFAULT)[address] [facility] [place] [address] RBC (Bld) [#/Vol] 3.93 10*6/uL Low 4.38-5.83 [facility] Comment on above: Result Comment: This is an appended report. These results have been appended to a previously preliminary verified report. Performed By: #### L [id number] ####[facility] (DEFAULT)[address] [facility] [place] [address] RBC Distribution 17.7 % High 10.9-14.3 [facility] Comment on above: Result Comment: This is an appended report. These results have been appended to a previously preliminary verified report. Performed By: #### L [id number] ####[facility] (DEFAULT)[address] [place] [address] Segs + Bands Auto 97.4 % Normal [facility] Comment on above: Performed By: #### L [id number] ####[facility] (DEFAULT)[address] [facility] [place] [address] Segs + Bands,Absolute Auto 11.99 K/uL High 1.57-6.19 [facility] Comment on above: Performed By: #### L [id number] ####[facility] (DEFAULT)[address] [facility] [place] [address] WBC (Bld) [#/Vol] 12.31 10*3/uL High 3.73-10.10 [facility] Comment on above: Result Comment: This is an appended report. These results have been appended to a previously preliminary verified report. Performed By: #### L [id number] ####[facility] (DEFAULT)[address] [facility] [place] [address] Abs Baso Auto < Normal 0.00-0.09 [facility] Comment on above: Performed By: #### L [id number] ####[facility] (DEFAULT)[address] [facility] [place] [address] Abs Eos Auto < Normal 0.00-0.48 [facility] Comment on above: Performed By: #### L [id number] ####[facility] (DEFAULT)[address] [place] [address] Basophils/100 WBC (Bld) 0.1 % Normal [facility] Comment on above: Performed By: #### L [id number] ####[facility] (DEFAULT)[address] [place] [address], [place] [address] DIFF STATUS Electronic Differential Normal [facility] Comment on above: Performed By: #### L [id number] ####[facility] (DEFAULT)[address] [place] [address], [place] [address] Eosinophils/100 WBC (Bld) 0.0 % Normal [facility] Comment on above: Performed By: #### L [id number] ####[facility] (DEFAULT)[address] [place] [address], [place] [address] Hematocrit (Bld) [Volume fraction] 27.6 % Low 39.6-48.8 [facility] Comment on above: Performed By: #### L [id number] ####[facility] (DEFAULT)[address] [place] [address], [place] [address] Hemoglobin (Bld) [Mass/Vol] 9.1 g/dL Low 13.4-16.8 [facility] Comment on above: Performed By: #### L [id number] ####[facility] (DEFAULT)[address] [place] [address] Immature Grans % 0.4 % Normal [facility] Comment on above: Performed By: #### L [id number] ####[facility] (DEFAULT)[address] [facility] [place] [address] Immature Grans Absolute 0.08 K/uL High <=0.07 [facility] Comment on above: Performed By: #### L [id number] ####[facility] (DEFAULT)[address] [place] [address] Lymphocytes (Bld) [#/Vol] 0.15 10*3/uL Low 0.83-3.57 [facility] Comment on above: Performed By: #### L [id number] ####[facility] (DEFAULT)[address] [place] [address] Lymphocytes/100 WBC (Bld) 0.8 % Normal [facility] Comment on above: Performed By: #### L [id number] ####[facility] (DEFAULT)[address] [place] [address] MCV (RBC) [Entitic vol] 95.8 fL High 79.0-94.5 [facility] Comment on above: Performed By: #### L [id number] ####[facility] (DEFAULT)[address] [facility] [place] [address] Mean Cell Hgb 31.6 pg Normal 26.1-33.3 [facility] Comment on above: Performed By: #### L [id number] ####[facility] (DEFAULT)[address] [place] [address] Mean Cell Hgb Conc 33.0 g/dL Normal 31.9-36.5 [facility] Comment on above: Performed By: #### L [id number] ####[facility] (DEFAULT)[address] [facility] [place] [address] Monocytes (Bld) [#/Vol] 0.23 10*3/uL Low 0.24-0.93 [facility] Comment on above: Performed By: #### L [id number] ####[facility] (DEFAULT)[address] [facility] [place] [address] Monocytes/100 WBC (Bld) 1.3 % Normal [facility] Comment on above: Performed By: #### L [id number] ####[facility] (DEFAULT)[address] [facility] [place] [address] Nucleated RBC 0.0 /100 WBC Normal <=0.2 [facility] Comment on above: Performed By: #### L [id number] ####[facility] (DEFAULT)[address] [facility] [place] [address] Platelet mean volume (Bld) [Entitic vol] 11.5 fL Normal 8.7-12.3 [facility] Comment on above: Performed By: #### L [id number] ####[facility] (DEFAULT)[address] [facility] [place] [address] Platelets (Bld) [#/Vol] 179 10*3/uL Normal 146-337 [facility] Comment on above: Performed By: #### L [id number] ####[facility] (DEFAULT)[address] [facility] [place] [address] RBC (Bld) [#/Vol] 2.88 10*6/uL Low 4.38-5.83 [facility] Comment on above: Performed By: #### L [id number] ####[facility] (DEFAULT)[address] [facility] [place] [address] RBC Distribution 17.8 % High 10.9-14.3 [facility] Comment on above: Performed By: #### L [id number] ####[facility] (DEFAULT)[address] [facility] [place] [address] Segs + Bands Auto 97.4 % Normal [facility] Comment on above: Performed By: #### L [id number] ####[facility] (DEFAULT)[address] [place] [address] Segs + Bands,Absolute Auto 17.39 K/uL High 1.57-6.19 [facility] Comment on above: Performed By: #### L [id number] ####[facility] (DEFAULT)[address] [place] [address] WBC (Bld) [#/Vol] 17.87 10*3/uL High 3.73-10.10 [facility] Comment on above: Performed By: #### L [id number] ####[facility] (DEFAULT)[address] [place] [address] Abs Baso Auto < Normal 0.00-0.09 [facility] Comment on above: Performed By: #### L [id number] ####[facility] (DEFAULT)[address] [facility] [place] [address] Abs Eos Auto < Normal 0.00-0.48 [facility] Comment on above: Performed By: #### L [id number] ####[facility] (DEFAULT)[address] [facility] [place] [address] Basophils/100 WBC (Bld) 0.1 % Normal [facility] Comment on above: Performed By: #### L [id number] ####[facility] (DEFAULT)[address] [facility] [place] [address] DIFF STATUS Electronic Differential Normal [facility] Comment on above: Performed By: #### L [id number] ####[facility] (DEFAULT)[address] [facility] [place] [address] Eosinophils/100 WBC (Bld) 0.0 % Normal [facility] Comment on above: Performed By: #### L [id number] ####[facility] (DEFAULT)[address] [place] [address] Hematocrit (Bld) [Volume fraction] 29.2 % Low 39.6-48.8 [facility] Comment on above: Performed By: #### L [id number] ####[facility] (DEFAULT)[address] [facility] [place] [address] Hemoglobin (Bld) [Mass/Vol] 9.7 g/dL Low 13.4-16.8 [facility] Comment on above: Performed By: #### L [id number] ####[facility] (DEFAULT)[address] [facility] [place] [address] Immature Grans % 0.3 % Normal [facility] Comment on above: Performed By: #### L [id number] ####[facility] (DEFAULT)[address] [facility] [place] [address] Immature Grans Absolute 0.04 K/uL Normal <=0.07 [facility] Comment on above: Performed By: #### L [id number] ####[facility] (DEFAULT)[address] [facility] [place] [address] Lymphocytes (Bld) [#/Vol] 0.22 10*3/uL Low 0.83-3.57 [facility] Comment on above: Performed By: #### L [id number] ####[facility] (DEFAULT)[address] [place] [address] Lymphocytes/100 WBC (Bld) 1.5 % Normal [facility] Comment on above: Performed By: #### L [id number] ####[facility] (DEFAULT)[address] [facility] [place] [address] MCV (RBC) [Entitic vol] 94.8 fL High 79.0-94.5 [facility] Comment on above: Performed By: #### L [id number] ####[facility] (DEFAULT)[address] [facility] [place] [address] Mean Cell Hgb 31.5 pg Normal 26.1-33.3 [facility] Comment on above: Performed By: #### L [id number] ####[facility] (DEFAULT)[address] [facility] [place] [address] Mean Cell Hgb Conc 33.2 g/dL Normal 31.9-36.5 [facility] Comment on above: Performed By: #### L [id number] ####[facility] (DEFAULT)[address] [place] [address] Monocytes (Bld) [#/Vol] 0.31 10*3/uL Normal 0.24-0.93 [facility] Comment on above: Performed By: #### L [id number] ####[facility] (DEFAULT)[address] [facility] [place] [address] Monocytes/100 WBC (Bld) 2.1 % Normal [facility] Comment on above: Performed By: #### L [id number] ####[facility] (DEFAULT)[address] [facility] [place] [place] [address] Nucleated RBC 0.0 /100 WBC Normal <=0.2 [facility] Comment on above: Performed By: #### L [id number] ####[facility] (DEFAULT)[address] [place] [address] Platelet mean volume (Bld) [Entitic vol] 11.0 fL Normal 8.7-12.3 [facility] Comment on above: Performed By: #### L [id number] ####[facility] (DEFAULT)[address] [facility] [place] [place] [address] Platelets (Bld) [#/Vol] 171 10*3/uL Normal 146-337 [facility] Comment on above: Performed By: #### L [id number] ####[facility] (DEFAULT)[address] [facility] [place] [address] RBC (Bld) [#/Vol] 3.08 10*6/uL Low 4.38-5.83 [facility] Comment on above: Performed By: #### L [id number] ####[facility] (DEFAULT)[address] [facility] [place] [address] RBC Distribution 17.8 % High 10.9-14.3 [facility] Comment on above: Performed By: #### L [id number] ####[facility] (DEFAULT)[address] [facility] [place] [address] Segs + Bands Auto 96.0 % Normal [facility] Comment on above: Performed By: #### L [id number] ####[facility] (DEFAULT)[address] [facility] [place] [place] [address] Segs + Bands,Absolute Auto 14.36 K/uL High 1.57-6.19 [facility] Comment on above: Performed By: #### L [id number] ####[facility] (DEFAULT)[address] [facility] [place] [place] [address] WBC (Bld) [#/Vol] 14.95 10*3/uL High 3.73-10.10 [facility] Comment on above: Performed By: #### L [id number] ####[facility] (DEFAULT)[address] [place] [address] Hematocrit (Bld) [Volume fraction] 34.2 % Low 39.6-48.8 [facility] Comment on above: Performed By: #### L [id number] ####[facility] (DEFAULT)[address] [place] [address] Hemoglobin (Bld) [Mass/Vol] 11.3 g/dL Low 13.4-16.8 [facility] Comment on above: Performed By: #### L [id number] ####[facility] (DEFAULT)[address] [place] [address] MCV (RBC) [Entitic vol] 94.7 fL High 79.0-94.5 [facility] Comment on above: Performed By: #### L [id number] ####[facility] (DEFAULT)[address] [facility] [place] [place] [address] Mean Cell Hgb 31.3 pg Normal 26.1-33.3 [facility] Comment on above: Performed By: #### L [id number] ####[facility] (DEFAULT)[address] [place] [address] Mean Cell Hgb Conc 33.0 g/dL Normal 31.9-36.5 [facility] Comment on above: Performed By: #### L [id number] ####[facility] (DEFAULT)[address] [place] [address] Platelet mean volume (Bld) [Entitic vol] 11.0 fL Normal 8.7-12.3 [facility] Comment on above: Performed By: #### L [id number] ####[facility] (DEFAULT)[address] [place] [address] Platelets (Bld) [#/Vol] 199 10*3/uL Normal 146-337 [facility] Comment on above: Performed By: #### L [id number] ####[facility] (DEFAULT)[address] [place] [address] RBC (Bld) [#/Vol] 3.61 10*6/uL Low 4.38-5.83 [facility] Comment on above: Performed By: #### L [id number] ####[facility] (DEFAULT)[address] [place] [address] RBC Distribution 17.8 % High 10.9-14.3 [facility] Comment on above: Performed By: #### L AB980 ####[facility] (DEFAULT)[address] [place] [address] WBC (Bld) [#/Vol] 16.07 10*3/uL High 3.73-10.10 [facility] Comment on above: Performed By: #### L [id number] ####[facility] (DEFAULT)[address] [place] [address] CHEM 7 (LYTES,BUN,CREA,GLUC) on 05-26-2024 Anion gap [Moles/Vol] 11 mmol/L Normal 7-17 [facility] Comment on above: Performed By: #### I PB, HFP, CHM7, MGO, CA ####[facility] (DEFAULT)[address] [facility] [place] [address] Chloride [Moles/Vol] 101 mmol/L Normal 98-108 [facility] Comment on above: Performed By: #### I PB, HFP, CHM7, MGO, CA ####[facility] (DEFAULT)[address] [place] [address] CO2 [Moles/Vol] 33 mmol/L High 21-31 [facility] Comment on above: Performed By: #### I PB, HFP, CHM7, MGO, CA ####[facility] (DEFAULT)[address] [place] [address] Creatinine [Mass/Vol] 0.53 mg/dL Low 0.70-1.30 [facility] Comment on above: Performed By: #### I PB, HFP, CHM7, MGO, CA ####[facility] (DEFAULT)[address] [place] [address] eGFR, CKD-EPI, Male > Normal >=60 [facility] Comment on above: Result Comment: Repo rted eGFR is based on the CKD-EPI 2020 equation using creatinine, age, and sex. Performed By: #### I PB, HFP, CHM7, MGO, CA ####[facility] (DEFAULT)[address] [place] [address] Glucose [Mass/Vol] 127 mg/dL Normal Nonfastin -179 mg/dL; Fastin-99 [facility] Comment on above: Performed By: #### I PB, HFP, CHM7, MGO, CA ####[facility] (DEFAULT)[address] [place] [address] Osmolality [Osmolality] 298 mosm/kg Normal 278-305 [facility] Comment on above: Performed By: #### I PB, HFP, CHM7, MGO, CA ####[facility] (DEFAULT)[address] [place] [address] Potassium [Moles/Vol] 4.3 mmol/L Normal 3.5-5.0 [facility] Comment on above: Performed By: #### I PB, HFP, CHM7, MGO, CA ####[facility] (DEFAULT)[address] [place] [address] Sodium [Moles/Vol] 141 mmol/L Normal 135-145 [facility] Comment on above: Performed By: #### I PB, HFP, CHM7, MGO, CA ####[facility] (DEFAULT)[address] [place] [address] Urea nitrogen [Mass/Vol] 16 mg/dL Normal 7-25 [facility] Comment on above: Performed By: #### I PB, HFP, CHM7, MGO, CA ####[facility] (DEFAULT)[address] [place] [address] Urea nitrogen/Creatinine [Mass ratio] 30 mg/mg Normal [facility] Comment on above: Performed By: #### I PB, HFP, CHM7, MGO, CA ####[facility] (DEFAULT)[address] [place] [address] Anion gap [Moles/Vol] 13 mmol/L Normal 7-17 [facility] Comment on above: Performed By: #### I PB, HFP, CHM7, MGO, CA ####[facility] (DEFAULT)[address] [place] [address] Chloride [Moles/Vol] 104 mmol/L Normal 98-108 [facility] Comment on above: Performed By: #### I PB, HFP, CHM7, MGO, CA ####[facility] (DEFAULT)[address] [place] [address] CO2 [Moles/Vol] 30 mmol/L Normal 21-31 [facility] Comment on above: Performed By: #### I PB, HFP, CHM7, MGO, CA ####[facility] (DEFAULT)[address] [place] [address] Creatinine [Mass/Vol] 0.58 mg/dL Low 0.70-1.30 [facility] Comment on above: Performed By: #### I PB, HFP, CHM7, MGO, CA ####[facility] (DEFAULT)[address] [facility] [place] [address] eGFR, CKD-EPI, Male > Normal >=60 [facility] Comment on above: Result Comment: Repo rted eGFR is based on the CKD-EPI 2020 equation using creatinine, age, and sex. Performed By: #### I PB, HFP, CHM7, MGO, CA ####[facility] (DEFAULT)[address] [place] [address] Glucose [Mass/Vol] 118 mg/dL Normal Nonfastin -179 mg/dL; Fastin-99 [facility] Comment on above: Performed By: #### I PB, HFP, CHM7, MGO, CA ####[facility] (DEFAULT)[address] [place] [address] Osmolality [Osmolality] 301 mosm/kg Normal 278-305 [facility] Comment on above: Performed By: #### I PB, HFP, CHM7, MGO, CA ####[facility] (DEFAULT)[address] [place] [address] Potassium [Moles/Vol] 4.3 mmol/L Normal 3.5-5.0 [facility] Comment on above: Performed By: #### I PB, HFP, CHM7, MGO, CA ####[facility] (DEFAULT)[address] [place] [address] Sodium [Moles/Vol] 143 mmol/L Normal 135-145 [facility] Comment on above: Performed By: #### I PB, HFP, CHM7, MGO, CA ####[facility] (DEFAULT)[address] [place] [address] Urea nitrogen [Mass/Vol] 14 mg/dL Normal 7-25 [facility] Comment on above: Performed By: #### I PB, HFP, CHM7, MGO, CA ####[facility] (DEFAULT)[address] [place] [address] Urea nitrogen/Creatinine [Mass ratio] 24 mg/mg Normal [facility] Comment on above: Performed By: #### I PB, HFP, CHM7, MGO, CA ####[facility] (DEFAULT)[address] [place] [address] Anion gap [Moles/Vol] 16 mmol/L Normal 7-17 [facility] Comment on above: Performed By: #### H FP, IPB, CHM7, MGO, CA ####[facility] (DEFAULT)[address] [place] [address] Chloride [Moles/Vol] 107 mmol/L Normal 98-108 [facility] Comment on above: Performed By: #### H FP, IPB, CHM7, MGO, CA ####[facility] (DEFAULT)[address] [place] [address] CO2 [Moles/Vol] 27 mmol/L Normal 21-31 [facility] Comment on above: Performed By: #### H FP, IPB, CHM7, MGO, CA ####[facility] (DEFAULT)[address] [place] [address] Creatinine [Mass/Vol] 0.62 mg/dL Low 0.70-1.30 [facility] Comment on above: Performed By: #### H FP, IPB, CHM7, MGO, CA ####[facility] (DEFAULT)[address] [place] [address] eGFR, CKD-EPI, Male > Normal >=60 [facility] Comment on above: Result Comment: Repo rted eGFR is based on the CKD-EPI 2020 equation using creatinine, age, and sex. Performed By: #### H FP, IPB, CHM7, MGO, CA ####[facility] (DEFAULT)[address] [place] [address] Glucose [Mass/Vol] 128 mg/dL Normal Nonfastin -179 mg/dL; Fastin-99 [facility] Comment on above: Performed By: #### H FP, IPB, CHM7, MGO, CA ####[facility] (DEFAULT)[address] [place] [address], [place] [address] Osmolality [Osmolality] 304 mosm/kg Normal 278-305 [facility] Comment on above: Performed By: #### H FP, IPB, CHM7, MGO, CA ####[facility] (DEFAULT)[address] [place] [address], [place] [address] Potassium [Moles/Vol] 4.5 mmol/L Normal 3.5-5.0 [facility] Comment on above: Performed By: #### H FP, IPB, CHM7, MGO, CA ####[facility] (DEFAULT)[address] [place] [address] Sodium [Moles/Vol] 145 mmol/L Normal 135-145 [facility] Comment on above: Performed By: #### H FP, IPB, CHM7, MGO, CA ####[facility] (DEFAULT)[address] [place] [address] Urea nitrogen [Mass/Vol] 11 mg/dL Normal 7-25 [facility] Comment on above: Performed By: #### H FP, IPB, CHM7, MGO, CA ####[facility] (DEFAULT)[address] [place] [address] Urea nitrogen/Creatinine [Mass ratio] 18 mg/mg Normal [facility] Comment on above: Performed By: #### H FP, IPB, CHM7, MGO, CA ####[facility] (DEFAULT)[address] [place] [address] Anion gap [Moles/Vol] 18 mmol/L High 7-17 [facility] Comment on above: Performed By: #### H FP, IPB, MGO, CHM7, CA ####[facility] (DEFAULT)[address] [place] [address] Chloride [Moles/Vol] 105 mmol/L Normal 98-108 [facility] Comment on above: Performed By: #### H FP, IPB, MGO, CHM7, CA ####[facility] (DEFAULT)[address] [place] [address] CO2 [Moles/Vol] 24 mmol/L Normal 21-31 [facility] Comment on above: Performed By: #### H FP, IPB, MGO, CHM7, CA ####[facility] (DEFAULT)[address] [place] [address] Creatinine [Mass/Vol] 0.65 mg/dL Low 0.70-1.30 [facility] Comment on above: Performed By: #### H FP, IPB, MGO, CHM7, CA ####[facility] (DEFAULT)[address] [place] [address] eGFR, CKD-EPI, Male > Normal >=60 [facility] Comment on above: Result Comment: Repo rted eGFR is based on the CKD-EPI 2020 equation using creatinine, age, and sex. Performed By: #### H FP, IPB, MGO, CHM7, CA ####[facility] (DEFAULT)[address] [place] [address] Glucose [Mass/Vol] 209 mg/dL High Nonfastin -179 mg/dL; Fastin-99 [facility] Comment on above: Performed By: #### H FP, IPB, MGO, CHM7, CA ####[facility] (DEFAULT)[address] [facility] [place] [address] Osmolality [Osmolality] 305 mosm/kg Normal 278-305 [facility] Comment on above: Performed By: #### H FP, IPB, MGO, CHM7, CA ####[facility] (DEFAULT)[address] [facility] [place] [address] Potassium [Moles/Vol] 3.9 mmol/L Normal 3.5-5.0 [facility] Comment on above: Performed By: #### H FP, IPB, MGO, CHM7, CA ####[facility] (DEFAULT)[address] [place] [address] Sodium [Moles/Vol] 143 mmol/L Normal 135-145 [facility] Comment on above: Performed By: #### H FP, IPB, MGO, CHM7, CA ####[facility] (DEFAULT)[address] [facility] [place] [address] Urea nitrogen [Mass/Vol] 11 mg/dL Normal 7-25 [facility] Comment on above: Performed By: #### H FP, IPB, MGO, CHM7, CA ####[facility] (DEFAULT)[address] [place] [address] Urea nitrogen/Creatinine [Mass ratio] 17 mg/mg Normal [facility] Comment on above: Performed By: #### H FP, IPB, MGO, CHM7, CA ####[facility] (DEFAULT)[address] [place] [address] FIBRINOGEN, CLOTTABLEon 03-2 Fibrinogen-Clottable 332 mg/dL Normal 220-410 [facility] Comment on above: Result Comment: Func tional Fibrinogen (activity) levels can be affected by direct thrombin inhibitors such as heparins (>2.0 IU/ml) and dabigatran. Abnormal results should be interpreted with caution. Performed By: #### P TPTT, FIB ####[facility] (DEFAULT)[address] [facility] [place] [address] Fibrinogen-Clottable 346 mg/dL Normal 220-410 [facility] Comment on above: Result Comment: Func tional Fibrinogen (activity) levels can be affected by direct thrombin inhibitors such as heparins (>2.0 IU/ml) and dabigatran. Abnormal results should be interpreted with caution. Performed By: #### P TPTT, FIB ####[facility] (DEFAULT)[address] [place] [address] Fibrinogen-Clottable 315 mg/dL Normal 220-410 [facility] Comment on above: Result Comment: Func tional Fibrinogen (activity) levels can be affected by direct thrombin inhibitors such as heparins (>2.0 IU/ml) and dabigatran. Abnormal results should be interpreted with caution. Performed By: #### P TPTT, FIB ####[facility] (DEFAULT)[address] [place] [address] Fibrinogen-Clottable 366 mg/dL Normal 220-410 [facility] Comment on above: Result Comment: Func tional Fibrinogen (activity) levels can be affected by direct thrombin inhibitors such as heparins (>2.0 IU/ml) and dabigatran. Abnormal results should be interpreted with caution. Performed By: #### P TPTT, FIB ####[facility] (DEFAULT)[address] [place] [address] HEPATIC FUNCTION PANELon Albumin [Mass/Vol] 3.6 g/dL Normal 3.5-5.0 [facility] Comment on above: Performed By: #### I PB, HFP, CHM7, MGO, CA ####[facility] (DEFAULT)[address] [place] [address] ALP [Catalytic activity/Vol] 248 U/L High 32-126 [facility] Comment on above: Performed By: #### I PB, HFP, CHM7, MGO, CA ####[facility] (DEFAULT)[address] [place] [address] ALT [Catalytic activity/Vol] 124 U/L High 10-52 [facility] Comment on above: Performed By: #### I PB, HFP, CHM7, MGO, CA ####[facility] (DEFAULT)[address] [place] [address] AST [Catalytic activity/Vol] 314 U/L High 10-39 [facility] Comment on above: Performed By: #### I PB, HFP, CHM7, MGO, CA ####[facility] (DEFAULT)[address] [place] [address] Bilirubin [Mass/Vol] 3.3 mg/dL High <1.5 [facility] Comment on above: Performed By: #### I PB, HFP, CHM7, MGO, CA ####[facility] (DEFAULT)[address] [place] [address] Bilirubin.indirect [Mass/Vol] 1.5 mg/dL High <0.3 [facility] Comment on above: Performed By: #### I PB, HFP, CHM7, MGO, CA ####[facility] (DEFAULT)[address] [place] [address] Protein [Mass/Vol] 5.8 g/dL Low 6.4-8.3 [facility] Comment on above: Performed By: #### I PB, HFP, CHM7, MGO, CA ####[facility] (DEFAULT)[address] [place] [address] Albumin [Mass/Vol] 3.7 g/dL Normal 3.5-5.0 [facility] Comment on above: Performed By: #### I PB, HFP, CHM7, MGO, CA ####[facility] (DEFAULT)[address] [place] [address] ALP [Catalytic activity/Vol] 266 U/L High 32-126 [facility] Comment on above: Performed By: #### I PB, HFP, CHM7, MGO, CA ####[facility] (DEFAULT)[address] [place] [address] ALT [Catalytic activity/Vol] 135 U/L High 10-52 [facility] Comment on above: Performed By: #### I PB, HFP, CHM7, MGO, CA ####[facility] (DEFAULT)[address] [place] [address] AST [Catalytic activity/Vol] 480 U/L High 10-39 [facility] Comment on above: Performed By: #### I PB, HFP, CHM7, MGO, CA ####[facility] (DEFAULT)[address] [place] [address] Bilirubin [Mass/Vol] 3.3 mg/dL High <1.5 [facility] Comment on above: Performed By: #### I PB, HFP, CHM7, MGO, CA ####[facility] (DEFAULT)[address] [place] [address] Bilirubin.indirect [Mass/Vol] 1.5 mg/dL High <0.3 [facility] Comment on above: Performed By: #### I PB, HFP, CHM7, MGO, CA ####[facility] (DEFAULT)[address] [place] [address] Protein [Mass/Vol] 6.0 g/dL Low 6.4-8.3 [facility] Comment on above: Performed By: #### I PB, HFP, CHM7, MGO, CA ####[facility] (DEFAULT)[address] [place] [address] Albumin [Mass/Vol] 3.5 g/dL Normal 3.5-5.0 [facility] Comment on above: Performed By: #### H FP, IPB, CHM7, MGO, CA ####[facility] (DEFAULT)[address] [place] [address] ALP [Catalytic activity/Vol] 260 U/L High 32-126 [facility] Comment on above: Performed By: #### H FP, IPB, CHM7, MGO, CA ####[facility] (DEFAULT)[address] [place] [address] ALT [Catalytic activity/Vol] 150 U/L High 10-52 [facility] Comment on above: Performed By: #### H FP, IPB, CHM7, MGO, CA ####[facility] (DEFAULT)[address] [place] [address] AST [Catalytic activity/Vol] 747 U/L High 10-39 [facility] Comment on above: Performed By: #### H FP, IPB, CHM7, MGO, CA ####[facility] (DEFAULT)[address] [place] [address] Bilirubin [Mass/Vol] 3.0 mg/dL High <1.5 [facility] Comment on above: Performed By: #### H FP, IPB, CHM7, MGO, CA ####[facility] (DEFAULT)[address] [place] [address] Bilirubin.indirect [Mass/Vol] 1.5 mg/dL High <0.3 [facility] Comment on above: Performed By: #### H FP, IPB, CHM7, MGO, CA ####[facility] (DEFAULT)[address] [place] [address] Protein [Mass/Vol] 5.6 g/dL Low 6.4-8.3 [facility] Comment on above: Performed By: #### H FP, IPB, CHM7, MGO, CA ####[facility] (DEFAULT)[address] [place] [address] Albumin [Mass/Vol] 3.2 g/dL Low 3.5-5.0 [facility] Comment on above: Performed By: #### H FP, IPB, MGO, CHM7, CA ####[facility] (DEFAULT)[address] [place] [address] ALP [Catalytic activity/Vol] 325 U/L High 32-126 [facility] Comment on above: Performed By: #### H FP, IPB, MGO, CHM7, CA ####[facility] (DEFAULT)[address] [place] [address] ALT [Catalytic activity/Vol] 169 U/L High 10-52 [facility] Comment on above: Performed By: #### H FP, IPB, MGO, CHM7, CA ####[facility] (DEFAULT)[address] [place] [address] AST [Catalytic activity/Vol] 1181 U/L High 10-39 [facility] Comment on above: Performed By: #### H FP, IPB, MGO, CHM7, CA ####[facility] (DEFAULT)[address] [place] [address] Bilirubin [Mass/Vol] 3.7 mg/dL High <1.5 [facility] Comment on above: Performed By: #### H FP, IPB, MGO, CHM7, CA ####[facility] (DEFAULT)[address] [place] [address] Bilirubin.indirect [Mass/Vol] 2.1 mg/dL High <0.3 [facility] Comment on above: Performed By: #### H FP, IPB, MGO, CHM7, CA ####[facility] (DEFAULT)[address] [place] [address] Protein [Mass/Vol] 5.9 g/dL Low 6.4-8.3 [facility] Comment on above: Performed By: #### H FP, IPB, MGO, CHM7, CA ####[facility] (DEFAULT)[address] [place] [address] IONIZED CALCIUM, WHOLE BLOOD on 05-26-2024 ICA 4.53 mg/dL Low 4.60-5.30 [facility] Comment on above: Performed By: #### I CA ####[facility] (DEFAULT)[address] [place] [address] ICA 4.54 mg/dL Low 4.60-5.30 [facility] Comment on above: Performed By: #### I CA ####[facility] (DEFAULT)[address] [facility] [place] [address] ICA 4.72 mg/dL Normal 4.60-5.30 [facility] Comment on above: Performed By: #### I CA ####[facility] (DEFAULT)[address] [facility] [place] [address] ICA 4.81 mg/dL Normal 4.60-5.30 [facility] Comment on above: Performed By: #### I CA ####[facility] (DEFAULT)[address] [facility] [place] [address] LACTATE, 2 HOUR DRAWon 05-26 2 Hour Lactate 2.6 mmol/L High 0.5-1.6 [facility] Comment on above: Performed By: #### L ACTATE, 2 HOUR DRAW ####[facility] (DEFAULT)[address] [facility] [place] [address] 2 Hour Lactate 5.5 mmol/L Critically high 0.5-1.6 [facility] Comment on above: Performed By: #### L ACTATE, 2 HOUR DRAW ####[facility] (DEFAULT)[address] [place] [address] LACTATE, BLOODon 05-26-2024 Lactate, Blood 7.9 mmol/L Critically high 0.5-1.6 [facility] Comment on above: Result Comment: Lact ate results >/= 2.0 mmol/L should be followed up with a measurement 2 hours later for patients with suspicion of sepsis. Performed By: #### L ACT ####[facility] (DEFAULT)[address] [facility] [place] [address] MAGNESIUMon 05-26-2024 Magnesium [Mass/Vol] 2.2 mg/dL Normal 1.6-2.6 [facility] Comment on above: Performed By: #### I PB, HFP, CHM7, MGO, CA ####[facility] (DEFAULT)[address] [facility] [place] [address] Magnesium [Mass/Vol] 2.2 mg/dL Normal 1.6-2.6 [facility] Comment on above: Performed By: #### I PB, HFP, CHM7, MGO, CA ####[facility] (DEFAULT)[address] [place] [address] Magnesium [Mass/Vol] 2.7 mg/dL High 1.6-2.6 [facility] Comment on above: Performed By: #### H FP, IPB, CHM7, MGO, CA ####[facility] (DEFAULT)[address] [place] [address] Magnesium [Mass/Vol] 1.8 mg/dL Normal 1.6-2.6 [facility] Comment on above: Performed By: #### H FP, IPB, MGO, CHM7, CA ####[facility] (DEFAULT)[address] [facility] [place] [address] PHOSPHATE, INORGANICon 05-26 Phosphorous 3.5 mg/dL Normal 2.2-4.6 [facility] Comment on above: Performed By: #### I PB, HFP, CHM7, MGO, CA ####[facility] (DEFAULT)[address] [place] [address] Phosphorous 4.0 mg/dL Normal 2.2-4.6 [facility] Comment on above: Performed By: #### I PB, HFP, CHM7, MGO, CA ####[facility] (DEFAULT)[address] [place] [address] Phosphorous 4.3 mg/dL Normal 2.2-4.6 [facility] Comment on above: Performed By: #### H FP, IPB, CHM7, MGO, CA ####[facility] (DEFAULT)[address] [place] [address] Phosphorous 2.2 mg/dL Normal 2.2-4.6 [facility] Comment on above: Performed By: #### H FP, IPB, MGO, CHM7, CA ####[facility] (DEFAULT)[address] [place] [address] PT,INR,PTTon 05-26-2024 aPTT Coag (Bld) [Time] 31.0 s Normal 24.0-34.3 [facility] Comment on above: Performed By: #### P TPTT, FIB ####[facility] (DEFAULT)[address] [place] [address] INR Coag (PPP) [Relative time] 1.7 {INR} High 0.9-1.1 [facility] Comment on above: Performed By: #### P TPTT, FIB ####[facility] (DEFAULT)[address] [place] [address] PT Coag (PPP) [Time] 20.1 s High 11.9-14.2 [facility] Comment on above: Performed By: #### P TPTT, FIB ####[facility] (DEFAULT)[address] [place] [address] aPTT Coag (Bld) [Time] 31.6 s Normal 24.0-34.3 [facility] Comment on above: Performed By: #### P TPTT, FIB ####[facility] (DEFAULT)[address] [place] [address] INR Coag (PPP) [Relative time] 1.7 {INR} High 0.9-1.1 [facility] Comment on above: Performed By: #### P TPTT, FIB ####[facility] (DEFAULT)[address] [place] [address] PT Coag (PPP) [Time] 19.4 s High 11.9-14.2 [facility] Comment on above: Performed By: #### P TPTT, FIB ####[facility] (DEFAULT)[address] [place] [address] aPTT Coag (Bld) [Time] 34.2 s Normal 24.0-34.3 [facility] Comment on above: Performed By: #### P TPTT, FIB ####[facility] (DEFAULT)[address] [place] [address] INR Coag (PPP) [Relative time] 2.0 {INR} High 0.9-1.1 [facility] Comment on above: Performed By: #### P TPTT, FIB ####[facility] (DEFAULT)[address] [place] [address] PT Coag (PPP) [Time] 22.4 s High 11.9-14.2 [facility] Comment on above: Performed By: #### P TPTT, FIB ####[facility] (DEFAULT)[address] [place] [address] aPTT Coag (Bld) [Time] 36.6 s High 24.0-34.3 [facility] Comment on above: Performed By: #### P TPTT, FIB ####[facility] (DEFAULT)[address] [place] [address] INR Coag (PPP) [Relative time] 1.7 {INR} High 0.9-1.1 [facility] Comment on above: Performed By: #### P TPTT, FIB ####[facility] (DEFAULT)[address] [facility] [place] [address] PT Coag (PPP) [Time] 20.3 s High 11.9-14.2 [facility] Comment on above: Performed By: #### P TPTT, FIB ####[facility] (DEFAULT)[address] [place] [address], [place] [address] US ABDOMEN LIVER TRANSPLANT DOPPLERon 05-26-2024 US ABDOMEN LIVER TRANSPLANT DOPPLER Normal [facility] XR CHEST 1 VIEW PORTABLEon 0 05-26-2024 XR CHEST 1 VIEW PORTABLE Normal [facility] XR CHEST 1 VIEW PORTABLE Normal [facility] ACID FAST CULTUREon 05-26-19 25 Bacteria identified Cx Nom (Unsp spec) NO GROWTH DAY 42 OF 42 Normal [facility] Comment on above: Performed By: #### A FB ####[facility] (DEFAULT)[address] [place] [address], [place] [address] Fluorochrome Stain No acid Fast Bacillu s Seen Normal [facility] Comment on above: Performed By: #### A FB ####[facility] (DEFAULT)[address] [place] [address], [place] [address] AMYLASEon 05-25-2024 Amylase [Catalytic activity/Vol] 73 U/L Normal 20-103 [facility] Comment on above: Performed By: #### H FP, CHM7, IRBC, CA, AMYB ####[facility] (DEFAULT)[address] [place] [address] ANAEROBE CULTUREon 5 Bacteria identified Cx Nom (Unsp spec) No anaerobic growth Normal [facility] Comment on above: Order Comment: Colle ct fluids or tissues in a sterile container. If collecting swabs, must be collected in a Port-A-Cul tube. Performed By: #### A MICHAELA ####[facility] (DEFAULT)[address] [place] [address] ARTERIAL BLOOD GASon 025 Base Excess 1.2 mmol/L Normal -3.0-3.0 [facility] Comment on above: Performed By: #### G AS5 ####[facility] (DEFAULT)[address] [facility] [place] [address] HCO3 (Bld) [Moles/Vol] 26 mmol/L Normal 22-28 [facility] Comment on above: Performed By: #### G AS5 ####[facility] (DEFAULT)[address] [place] [address], [place] [address] Oxygen saturation in Blood 100 % High 94-98 [facility] Comment on above: Performed By: #### G AS5 ####[facility] (DEFAULT)[address] [place] [address], [place] [address] pCO2 42 mm Hg Normal 32-48 [facility] Comment on above: Performed By: #### G AS5 ####[facility] (DEFAULT)[address] [place] [address], [place] [address] pH, Arterial 7.40 Normal 7.35-7.45 [facility] Comment on above: Performed By: #### G AS5 ####[facility] (DEFAULT)[address] [place] [address], [place] [address] pO2 141 mm Hg High 83-108 [facility] Comment on above: Performed By: #### G AS5 ####[facility] (DEFAULT)[address] [place] [address], [place] [address] Specimen type Nom (Spec) Arterial Normal [facility] Comment on above: Performed By: #### G AS5 ####[facility] (DEFAULT)[address] [place] [address] BODY FLUID CULTURE AND DIREC T SMEARon 05-25-2024 Fluconazole [Susceptibility] 64 ug/mL Invalid Interpretation Code Susceptible <=0 ug/mL, Unknown >0 ug/mL [facility] Comment on above: Order Comment: Note: U (Unknown) is used to interpret results when CLSI Interpretive Guidelines are not available.This test was performed using a broth microdilution test method. This test was developed and its performance characteristics determined by the [facility] at [facility]. It has not been cleared or approved by the U.S. Food and Drug Administration. The laboratory is regulated under CLIA as qualified to perform high complexity testing. This test is used for clinical purposes. It should not be regarded as investigational or for research. Performed By: #### B FLD ####[facility] (DEFAULT)[address] [place] [address] Micafungin [Susceptibility] 0.12 ug/mL Invalid Interpretation Code Susceptible <=0 ug/mL, Unknown >0 ug/mL [facility] Comment on above: Order Comment: Note: U (Unknown) is used to interpret results when CLSI Interpretive Guidelines are not available.This test was performed using a broth microdilution test method. This test was developed and its performance characteristics determined by the [facility] at [facility]. It has not been cleared or approved by the U.S. Food and Drug Administration. The laboratory is regulated under CLIA as qualified to perform high complexity testing. This test is used for clinical purposes. It should not be regarded as investigational or for research. Performed By: #### B FLD ####[facility] (DEFAULT)[address] [place] [address] CALCIUMon 05-25-2024 Calcium [Mass/Vol] 10.0 mg/dL Normal 8.6-10.5 [facility] Comment on above: Performed By: #### C HM7, HFP, IPB, MGO, CA ####[facility] (DEFAULT)[address] [place] [address] Calcium [Mass/Vol] 8.9 mg/dL Normal 8.6-10.5 [facility] Comment on above: Performed By: #### H FP, CHM7, IRBC, CA, AMYB ####[facility] (DEFAULT)[address] [facility] [place] [address] NAEEM AURIS SCREEN BY PCRo n 05-25-2024 Naeem auris Screen by PCR Not detected Normal Not Detected [facility] Comment on above: Order Comment: This test was performed using a real-time PCR assay. This test was developed, and its performance characteristics determined by The [facility]. It has not been cleared or approved by the FDA. The laboratory is regulated under CLIA as qualified to perform high-complexity testing. This test is used for clinical purposes. It should not be regarded as investigational or for research. Performed By: #### C ANDIDA AURIS SCREEN BY PCR ####[facility] (DEFAULT)[address] [facility] [place] [address] CBC AND ELECTRONIC DIFFon Abs Baso Auto < Normal 0.00-0.09 [facility] Comment on above: Performed By: #### L [id number] ####[facility] (DEFAULT)[address] [facility] [place] [address] Abs Eos Auto < Normal 0.00-0.48 [facility] Comment on above: Performed By: #### L [id number] ####[facility] (DEFAULT)[address] [place] [address] Basophils/100 WBC (Bld) 0.2 % Normal [facility] Comment on above: Performed By: #### L [id number] ####[facility] (DEFAULT)[address] [facility] [place] [address] DIFF STATUS Electronic Differential Normal [facility] Comment on above: Performed By: #### L [id number] ####[facility] (DEFAULT)[address] [place] [address] Eosinophils/100 WBC (Bld) 0.0 % Normal [facility] Comment on above: Performed By: #### L [id number] ####[facility] (DEFAULT)[address] [facility] [place] [address] Hematocrit (Bld) [Volume fraction] 31.3 % Low 39.6-48.8 [facility] Comment on above: Performed By: #### L [id number] ####[facility] (DEFAULT)[address] [place] [address] Hemoglobin (Bld) [Mass/Vol] 10.4 g/dL Low 13.4-16.8 [facility] Comment on above: Performed By: #### L [id number] ####[facility] (DEFAULT)[address] [facility] [place] [address] Immature Grans % 0.2 % Normal [facility] Comment on above: Performed By: #### L [id number] ####[facility] (DEFAULT)[address] [facility] [place] [address] Immature Grans Absolute < Normal <=0.07 [facility] Comment on above: Performed By: #### L [id number] ####[facility] (DEFAULT)[address] [facility] [place] [address] Lymphocytes (Bld) [#/Vol] 0.19 10*3/uL Low 0.83-3.57 [facility] Comment on above: Performed By: #### L [id number] ####[facility] (DEFAULT)[address] [place] [address] Lymphocytes/100 WBC (Bld) 2.3 % Normal [facility] Comment on above: Performed By: #### L [id number] ####[facility] (DEFAULT)[address] [facility] [place] [address] MCV (RBC) [Entitic vol] 93.7 fL Normal 79.0-94.5 [facility] Comment on above: Performed By: #### L [id number] ####[facility] (DEFAULT)[address] [facility] [place] [address] Mean Cell Hgb 31.1 pg Normal 26.1-33.3 [facility] Comment on above: Performed By: #### L [id number] ####[facility] (DEFAULT)[address] [place] [address] Mean Cell Hgb Conc 33.2 g/dL Normal 31.9-36.5 [facility] Comment on above: Performed By: #### L [id number] ####[facility] (DEFAULT)[address] [place] [address] Monocytes (Bld) [#/Vol] 0.25 10*3/uL Normal 0.24-0.93 [facility] Comment on above: Performed By: #### L [id number] ####[facility] (DEFAULT)[address] [place] [address] Monocytes/100 WBC (Bld) 3.0 % Normal [facility] Comment on above: Performed By: #### L [id number] ####[facility] (DEFAULT)[address] [place] [address] Nucleated RBC 0.0 /100 WBC Normal <=0.2 [facility] Comment on above: Performed By: #### L [id number] ####[facility] (DEFAULT)[address] [place] [address] Platelet mean volume (Bld) [Entitic vol] 11.5 fL Normal 8.7-12.3 [facility] Comment on above: Performed By: #### L [id number] ####[facility] (DEFAULT)[address] [place] [address] Platelets (Bld) [#/Vol] 197 10*3/uL Normal 146-337 [facility] Comment on above: Performed By: #### L [id number] ####[facility] (DEFAULT)[address] [place] [address] RBC (Bld) [#/Vol] 3.34 10*6/uL Low 4.38-5.83 [facility] Comment on above: Performed By: #### L [id number] ####[facility] (DEFAULT)[address] [place] [address] RBC Distribution 17.2 % High 10.9-14.3 [facility] Comment on above: Performed By: #### L [id number] ####[facility] (DEFAULT)[address] [place] [address] Segs + Bands Auto 94.3 % Normal [facility] Comment on above: Performed By: #### L [id number] ####[facility] (DEFAULT)[address] [place] [address] Segs + Bands,Absolute Auto 7.77 K/uL High 1.57-6.19 [facility] Comment on above: Performed By: #### L [id number] ####[facility] (DEFAULT)[address] [facility] [place] [address] WBC (Bld) [#/Vol] 8.25 10*3/uL Normal 3.73-10.10 [facility] Comment on above: Performed By: #### L [id number] ####[facility] (DEFAULT)[address] [facility] [place] [address] Abs Baso Auto < Normal 0.00-0.09 [facility] Comment on above: Performed By: #### L [id number] ####[facility] (DEFAULT)[address] [facility] [place] [address] Abs Eos Auto < Normal 0.00-0.48 [facility] Comment on above: Performed By: #### L [id number] ####[facility] (DEFAULT)[address] [facility] [place] [address] Basophils/100 WBC (Bld) 0.6 % Normal [facility] Comment on above: Performed By: #### L [id number] ####[facility] (DEFAULT)[address] [facility] [place] [address] DIFF STATUS Electronic Differential Normal [facility] Comment on above: Performed By: #### L [id number] ####[facility] (DEFAULT)[address] [facility] [place] [address] Eosinophils/100 WBC (Bld) 0.0 % Normal [facility] Comment on above: Performed By: #### L [id number] ####[facility] (DEFAULT)[address] [facility] [place] [address] Hematocrit (Bld) [Volume fraction] 33.7 % Low 39.6-48.8 [facility] Comment on above: Performed By: #### L [id number] ####[facility] (DEFAULT)[address] [place] [address], [place] [address] Hemoglobin (Bld) [Mass/Vol] 11.3 g/dL Low 13.4-16.8 [facility] Comment on above: Performed By: #### L [id number] ####[facility] (DEFAULT)[address] [facility] [place] [address] Immature Grans % 0.4 % Normal [facility] Comment on above: Performed By: #### L [id number] ####[facility] (DEFAULT)[address] [place] [address], [place] [address] Immature Grans Absolute < Normal <=0.07 [facility] Comment on above: Performed By: #### L [id number] ####[facility] (DEFAULT)[address] [place] [address] Lymphocytes (Bld) [#/Vol] 0.79 10*3/uL Low 0.83-3.57 [facility] Comment on above: Performed By: #### L [id number] ####[facility] (DEFAULT)[address] [place] [address] Lymphocytes/100 WBC (Bld) 15.1 % Normal [facility] Comment on above: Performed By: #### L [id number] ####[facility] (DEFAULT)[address] [place] [address] MCV (RBC) [Entitic vol] 95.5 fL High 79.0-94.5 [facility] Comment on above: Performed By: #### L [id number] ####[facility] (DEFAULT)[address] [facility] [place] [address] Mean Cell Hgb 32.0 pg Normal 26.1-33.3 [facility] Comment on above: Performed By: #### L [id number] ####[facility] (DEFAULT)[address] [facility] [place] [address] Mean Cell Hgb Conc 33.5 g/dL Normal 31.9-36.5 [facility] Comment on above: Performed By: #### L [id number] ####[facility] (DEFAULT)[address] [place] [address] Monocytes (Bld) [#/Vol] 0.46 10*3/uL Normal 0.24-0.93 [facility] Comment on above: Performed By: #### L [id number] ####[facility] (DEFAULT)[address] [place] [address] Monocytes/100 WBC (Bld) 8.8 % Normal [facility] Comment on above: Performed By: #### L [id number] ####[facility] (DEFAULT)[address] [facility] [place] [place] [address] Nucleated RBC 0.0 /100 WBC Normal <=0.2 [facility] Comment on above: Performed By: #### L [id number] ####[facility] (DEFAULT)[address] [facility] [place] [address] Platelet mean volume (Bld) [Entitic vol] 10.9 fL Normal 8.7-12.3 [facility] Comment on above: Performed By: #### L [id number] ####[facility] (DEFAULT)[address] [facility] [place] [address] Platelets (Bld) [#/Vol] 257 10*3/uL Normal 146-337 [facility] Comment on above: Performed By: #### L [id number] ####[facility] (DEFAULT)[address] [facility] [place] [address] RBC (Bld) [#/Vol] 3.53 10*6/uL Low 4.38-5.83 [facility] Comment on above: Performed By: #### L [id number] ####[facility] (DEFAULT)[address] [facility] [place] [place] [address] RBC Distribution 16.1 % High 10.9-14.3 [facility] Comment on above: Performed By: #### L [id number] ####[facility] (DEFAULT)[address] [place] [address] Segs + Bands Auto 75.1 % Normal [facility] Comment on above: Performed By: #### L [id number] ####[facility] (DEFAULT)[address] [place] [address] Segs + Bands,Absolute Auto 3.92 K/uL Normal 1.57-6.19 [facility] Comment on above: Performed By: #### L [id number] ####[facility] (DEFAULT)[address] [place] [address] WBC (Bld) [#/Vol] 5.22 10*3/uL Normal 3.73-10.10 [facility] Comment on above: Performed By: #### L [id number] ####[facility] (DEFAULT)[address] [place] [address] CHEM 7 (LYTES,BUN,CREA,GLUC) on 05-25-2024 Anion gap [Moles/Vol] 20 mmol/L High 7-17 [facility] Comment on above: Performed By: #### C HM7, HFP, IPB, MGO, CA ####[facility] (DEFAULT)[address] [place] [address] Chloride [Moles/Vol] 106 mmol/L Normal 98-108 [facility] Comment on above: Performed By: #### C HM7, HFP, IPB, MGO, CA ####[facility] (DEFAULT)[address] [place] [address] CO2 [Moles/Vol] 23 mmol/L Normal 21-31 [facility] Comment on above: Performed By: #### C HM7, HFP, IPB, MGO, CA ####[facility] (DEFAULT)[address] [facility] [place] [address] Creatinine [Mass/Vol] 0.60 mg/dL Low 0.70-1.30 [facility] Comment on above: Performed By: #### C HM7, HFP, IPB, MGO, CA ####[facility] (DEFAULT)[address] [facility] [place] [address] eGFR, CKD-EPI, Male > Normal >=60 [facility] Comment on above: Result Comment: Repo rted eGFR is based on the CKD-EPI 2020 equation using creatinine, age, and sex. Performed By: #### C HM7, HFP, IPB, MGO, CA ####[facility] (DEFAULT)[address] [facility] [place] [address] Glucose [Mass/Vol] 142 mg/dL Normal Nonfastin -179 mg/dL; Fastin-99 [facility] Comment on above: Performed By: #### C HM7, HFP, IPB, MGO, CA ####[facility] (DEFAULT)[address] [facility] [place] [place] [address] Osmolality [Osmolality] 303 mosm/kg Normal 278-305 [facility] Comment on above: Performed By: #### C HM7, HFP, IPB, MGO, CA ####[facility] (DEFAULT)[address] [facility] [place] [place] [address] Potassium [Moles/Vol] 4.7 mmol/L Normal 3.5-5.0 [facility] Comment on above: Performed By: #### C HM7, HFP, IPB, MGO, CA ####[facility] (DEFAULT)[address] [place] [address] Sodium [Moles/Vol] 144 mmol/L Normal 135-145 [facility] Comment on above: Performed By: #### C HM7, HFP, IPB, MGO, CA ####[facility] (DEFAULT)[address] [place] [address] Urea nitrogen [Mass/Vol] 10 mg/dL Normal 7-25 [facility] Comment on above: Performed By: #### C HM7, HFP, IPB, MGO, CA ####[facility] (DEFAULT)[address] [place] [address] Urea nitrogen/Creatinine [Mass ratio] 17 mg/mg Normal [facility] Comment on above: Performed By: #### C HM7, HFP, IPB, MGO, CA ####[facility] (DEFAULT)[address] [place] [address] Anion gap [Moles/Vol] 15 mmol/L Normal 7-17 [facility] Comment on above: Performed By: #### H FP, CHM7, IRBC, CA, AMYB ####[facility] (DEFAULT)[address] [place] [address] Chloride [Moles/Vol] 106 mmol/L Normal 98-108 [facility] Comment on above: Performed By: #### H FP, CHM7, IRBC, CA, AMYB ####[facility] (DEFAULT)[address] [place] [address] CO2 [Moles/Vol] 20 mmol/L Low 21-31 [facility] Comment on above: Performed By: #### H FP, CHM7, IRBC, CA, AMYB ####[facility] (DEFAULT)[address] [place] [address] Creatinine [Mass/Vol] 0.68 mg/dL Low 0.70-1.30 [facility] Comment on above: Performed By: #### H ROMINA JOSEPH, IRBC, CA, AMYB ####[facility] (DEFAULT)[address] [place] [address] eGFR, CKD-EPI, Male > Normal >=60 [facility] Comment on above: Result Comment: Repo rted eGFR is based on the CKD-EPI 2020 equation using creatinine, age, and sex. Performed By: #### H ROMINA JOSEPH, IRBC, CA, AMYB ####[facility] (DEFAULT)[address] [place] [address] Glucose [Mass/Vol] 90 mg/dL Normal Nonfastin -179 mg/dL; Fastin-99 [facility] Comment on above: Performed By: #### ROMINA HUYNH, IRBC, CA, AMYB ####[facility] (DEFAULT)[address] [place] [address] Osmolality [Osmolality] 287 mosm/kg Normal 278-305 [facility] Comment on above: Performed By: #### H YISSEL JOSEPHMJorgito, IRBC, CA, AMYB ####[facility] (DEFAULT)[address] [place] [address] Potassium [Moles/Vol] 4.1 mmol/L Normal 3.5-5.0 [facility] Comment on above: Performed By: #### H ROMINA JOSEPH, IRBC, CA, AMYB ####[facility] (DEFAULT)[address] [place] [address] Sodium [Moles/Vol] 137 mmol/L Normal 135-145 [facility] Comment on above: Performed By: #### H JAKE, YISSELM7, IRBC, CA, AMYB ####[facility] (DEFAULT)[address] [place] [address] Urea nitrogen [Mass/Vol] 14 mg/dL Normal 7-25 [facility] Comment on above: Performed By: #### H FP, CHM7, IRBC, CA, AMYB ####[facility] (DEFAULT)[address] [place] [address] Urea nitrogen/Creatinine [Mass ratio] 21 mg/mg Normal [facility] Comment on above: Performed By: #### H FP, CHM7, IRBC, CA, AMYB ####[facility] (DEFAULT)[address] [place] [address] CMV IGG ABon 05-25-2024 CMV IgG Antibody Negative Normal Negative [facility] Comment on above: Performed By: #### E BVG, CMVG ####[facility] (DEFAULT)[address] [place] [address] EBV VCA IGG ABo 05-25-2024 EBV VCA IgG Antibody Positive Abnormal Negative [facility] Comment on above: Performed By: #### E BVG, CMVG ####[facility] (DEFAULT)[address] [place] [address] FERRITINon 05-25-2024 Ferritin [Mass/Vol] 37.4 ng/mL Normal 10.5-307.3 [facility] Comment on above: Performed By: #### F ERIB ####[facility] (DEFAULT)[address] [place] [address] FIBRINOGEN, CLOTTABLEon - Fibrinogen-Clottable 335 mg/dL Normal 220-410 [facility] Comment on above: Result Comment: Func tional Fibrinogen (activity) levels can be affected by direct thrombin inhibitors such as heparins (>2.0 IU/ml) and dabigatran. Abnormal results should be interpreted with caution. Performed By: #### P TPTT, FIB ####[facility] (DEFAULT)[address] [place] [address] Fibrinogen-Clottable 483 mg/dL High 220-410 [facility] Comment on above: Result Comment: Func tional Fibrinogen (activity) levels can be affected by direct thrombin inhibitors such as heparins (>2.0 IU/ml) and dabigatran. Abnormal results should be interpreted with caution. Performed By: #### P TPTT, TT, FIB ####[facility] (DEFAULT)[address] [place] [address] FUNGUS CULTUREon 05-25-2024 Bacteria identified Cx Nom (Unsp spec) Normal [facility] Comment on above: Order Comment: \X09\ Identification was performed on the MALDI-TOF mass spectrometer [employer]. This test was developed by [facility]. It has not been cleared or approved by the FDA. The laboratory is regulated under CLIA as qualified to perform high-complexity testing. This test is used for clinical purposes. It should not be regarded as investigational or for research. Result Comment: Grow [id number] Growth Naeem aurisRefer to specimen [id number] on 05/25/24 for susceptibilities.Critical value previously called. Performed By: #### F UN ####[facility] (DEFAULT)[address] [place] [address] HEMOGLOBIN A1Con 05-25-2024 Glucose [Mass/Vol] 103 mg/dL Normal [facility] Comment on above: Performed By: #### A 1CB ####[facility] (DEFAULT)[address] [place] [address] Hemoglobin A1C HPLC 5.2 % Normal 4.7-5.6 [facility] Comment on above: Performed By: #### A 1CB ####[facility] (DEFAULT)[address] [place] [address] HEPATIC FUNCTION PANELon Albumin [Mass/Vol] 3.1 g/dL Low 3.5-5.0 [facility] Comment on above: Performed By: #### C HM7, HFP, IPB, MGO, CA ####[facility] (DEFAULT)[address] [place] [address] ALP [Catalytic activity/Vol] 307 U/L High 32-126 [facility] Comment on above: Performed By: #### C HM7, HFP, IPB, MGO, CA ####[facility] (DEFAULT)[address] [place] [address] ALT [Catalytic activity/Vol] 147 U/L High 10-52 [facility] Comment on above: Performed By: #### C HM7, HFP, IPB, MGO, CA ####[facility] (DEFAULT)[address] [place] [address] AST [Catalytic activity/Vol] 741 U/L High 10-39 [facility] Comment on above: Performed By: #### C HM7, HFP, IPB, MGO, CA ####[facility] (DEFAULT)[address] [place] [address] Bilirubin [Mass/Vol] 3.6 mg/dL High <1.5 [facility] Comment on above: Performed By: #### C HM7, HFP, IPB, MGO, CA ####[facility] (DEFAULT)[address] [place] [address] Bilirubin.indirect [Mass/Vol] 2.1 mg/dL High <0.3 [facility] Comment on above: Performed By: #### C HM7, HFP, IPB, MGO, CA ####[facility] (DEFAULT)[address] [place] [address] Protein [Mass/Vol] 5.6 g/dL Low 6.4-8.3 [facility] Comment on above: Performed By: #### C HM7, HFP, IPB, MGO, CA ####[facility] (DEFAULT)[address] [place] [address] Albumin [Mass/Vol] 3.7 g/dL Normal 3.5-5.0 [facility] Comment on above: Performed By: #### H FP, CHM7, IRBC, CA, AMYB ####[facility] (DEFAULT)[address] [place] [address] ALP [Catalytic activity/Vol] 441 U/L High 32-126 [facility] Comment on above: Performed By: #### H FP, CHM7, IRBC, CA, AMYB ####[facility] (DEFAULT)[address] [place] [address] ALT [Catalytic activity/Vol] 66 U/L High 10-52 [facility] Comment on above: Performed By: #### H FP, CHM7, IRBC, CA, AMYB ####[facility] (DEFAULT)[address] [place] [address] AST [Catalytic activity/Vol] 105 U/L High 10-39 [facility] Comment on above: Performed By: #### H FP, CHM7, IRBC, CA, AMYB ####[facility] (DEFAULT)[address] [place] [address] Bilirubin [Mass/Vol] 4.1 mg/dL High <1.5 [facility] Comment on above: Performed By: #### H FP, CHM7, IRBC, CA, AMYB ####[facility] (DEFAULT)[address] [place] [address] Bilirubin.indirect [Mass/Vol] 2.3 mg/dL High <0.3 [facility] Comment on above: Performed By: #### H FP, CHM7, IRBC, CA, AMYB ####[facility] (DEFAULT)[address] [place] [address] Protein [Mass/Vol] 6.9 g/dL Normal 6.4-8.3 [facility] Comment on above: Performed By: #### H FP, CHM7, IRBC, CA, AMYB ####[facility] (DEFAULT)[address] [place] [address] HEPATITIS BATTERY, ACUTEon 0 05-25-2024 Hep B Core Ab,Total (IgG+IgM) Negative Normal Negative [facility] Comment on above: Performed By: #### H EP1B ####[facility] (DEFAULT)[address] [place] [address] Hep B Core IgM Ab Negative Normal Negative [facility] Comment on above: Performed By: #### H EP1B ####[facility] (DEFAULT)[address] [place] [address], [place] [address] Hepatitis A IgM Ab Negative Normal Negative [facility] Comment on above: Performed By: #### H EP1B ####[facility] (DEFAULT)[address] [place] [address] Hepatitis B Surface Ag Negative Normal Negative [facility] Comment on above: Performed By: #### H EP1B ####[facility] (DEFAULT)[address] [place] [address], [place] [address] Hepatitis C Antibody Negative Normal Negative [facility] Comment on above: Performed By: #### H EP1B ####[facility] (DEFAULT)[address] [place] [address] IONIZED CALCIUM, WHOLE BLOOD on 05-25-2024 ICA 4.97 mg/dL Normal 4.60-5.30 [facility] Comment on above: Performed By: #### I CA ####[facility] (DEFAULT)[address] [place] [address] IRON/IRON BINDING/TRANSFERRI Non 05-25-2024 Iron [Mass/Vol] 109 ug/dL Normal 40-174 [facility] Comment on above: Performed By: #### H FP, CHM7, IRBC, CA, AMYB ####[facility] (DEFAULT)[address] [place] [address] Iron Saturation 29 % Normal 20-55 [facility] Comment on above: Performed By: #### H FP, CHM7, IRBC, CA, AMYB ####[facility] (DEFAULT)[address] [facility] [place] [address] Total Iron Binding Capacity 376 mcg/dL Normal 250-425 [facility] Comment on above: Performed By: #### H FP, CHM7, IRBC, CA, AMYB ####[facility] (DEFAULT)[address] [facility] [place] [address] Transferrin [Mass/Vol] 301 mg/dL Normal 200-400 [facility] Comment on above: Performed By: #### H FP, CHM7, IRBC, CA, AMYB ####[facility] (DEFAULT)[address] [place] [address] LACTATE, BLOODon 05-25-2024 Lactate, Blood 6.3 mmol/L Critically high 0.5-1.6 [facility] Comment on above: Result Comment: Lact ate results >/= 2.0 mmol/L should be followed up with a measurement 2 hours later for patients with suspicion of sepsis. Performed By: #### L ACT ####[facility] (DEFAULT)[address] [place] [address] LIPASEon 05-25-2024 Lipase [Catalytic activity/Vol] 30 U/L Normal 11-82 [facility] Comment on above: Performed By: #### I PB, URICB, MGO, LIPA ####[facility] (DEFAULT)[address] [place] [address] MAGNESIUMon 05-25-2024 Magnesium [Mass/Vol] 2.2 mg/dL Normal 1.6-2.6 [facility] Comment on above: Performed By: #### C HM7, HFP, IPB, MGO, CA ####[facility] (DEFAULT)[address] [facility] [place] [address] Magnesium [Mass/Vol] 1.9 mg/dL Normal 1.6-2.6 [facility] Comment on above: Performed By: #### I PB, URICB, MGO, LIPA ####[facility] (DEFAULT)[address] [place] [address] PHOSPHATE, INORGANICon 05-25 Phosphorous 4.1 mg/dL Normal 2.2-4.6 [facility] Comment on above: Performed By: #### C HM7, HFP, IPB, MGO, CA ####[facility] (DEFAULT)[address] [facility] [place] [address] Phosphorous 3.4 mg/dL Normal 2.2-4.6 [facility] Comment on above: Performed By: #### I PB, URICB, MGO, LIPA ####[facility] (DEFAULT)[address] [facility] [place] [address] PRA CLASS (PRE-TRANSPLANT)on 05-25-2024 AB SPECIFICITY CLASS COMMENT Antibody Specificity testing performed by [employer]. cPRA calculation based on identification of HLA antibody specificities at MFI >2000 and/or presence of CREG antibodies. Normal [facility] Comment on above: Result Comment: Some of the reagents used for testing in the Clinical Histocompatibility Laboratory have yet to be approved by the FDA. Our certification by CLIA to perform high complexity tests allows us to use these reagents in the context of a stringent QCprogram, and obviates the need for FDA approval.Testing performed by the [facility] Clinical Histocompatibility Laboratory. [facility] number: [id number]. CLIA number: [id number], Director: Urban Millard, PhD, F([facility]). Performed By: #### P RAPRE ####[facility] (DEFAULT)[address] [place] [address] ANTIBODY SPECIFICITY INTERPRETATION DR52/DRB3*01:01 Normal [facility] Comment on above: Performed By: #### P RAPRE ####[facility] (DEFAULT)[address] [facility] [place] [address] CLASS I SPECIFICITIES Not detected Normal [facility] Comment on above: Performed By: #### P RAPRE ####[facility] (DEFAULT)[address] [place] [address] CLASS II SPECIFICITIES Not detected Normal [facility] Comment on above: Performed By: #### P RAPRE ####[facility] (DEFAULT)[address] [place] [address] cPRA 10 % High 0 [facility] Comment on above: Performed By: #### P RAPRE ####[facility] (DEFAULT)[address] [place] [address] PT,INR,PTTon 05-25-2024 aPTT Coag (Bld) [Time] 64.3 s High 24.0-34.3 [facility] Comment on above: Result Comment: Resu lts inconsistent with previous results Performed By: #### P TPTT, FIB ####[facility] (DEFAULT)[address] [place] [address] INR Coag (PPP) [Relative time] 1.6 {INR} High 0.9-1.1 [facility] Comment on above: Performed By: #### P TPTT, FIB ####[facility] (DEFAULT)[address] [place] [address] PT Coag (PPP) [Time] 19.2 s High 11.9-14.2 [facility] Comment on above: Performed By: #### P TPTT, FIB ####[facility] (DEFAULT)[address] [place] [address] aPTT Coag (Bld) [Time] 32.0 s Normal 24.0-34.3 [facility] Comment on above: Performed By: #### P TPTT, TT, FIB ####[facility] (DEFAULT)[address] [place] [address] INR Coag (PPP) [Relative time] 1.5 {INR} High 0.9-1.1 [facility] Comment on above: Performed By: #### P TPTT, TT, FIB ####[facility] (DEFAULT)[address] [place] [address] PT Coag (PPP) [Time] 18.0 s High 11.9-14.2 [facility] Comment on above: Performed By: #### P TPTT, TT, FIB ####[facility] (DEFAULT)[address] [place] [address] SCREEN, VREon 05-25-2024 Vancomycin Resistant Enterococcus Negative Normal Negative [facility] Comment on above: Order Comment: Colle ct with an ESWAB; requires 1 perirectal site. Performed By: #### S CV ####[facility] (DEFAULT)[address] [place] [address] SURG PATH REQUESTon 05-26-19 Case Report Normal [facility] Comment on above: Result Comment: Surg ical Pathology Report Case: [id number] Provider: Dalia Thomas MD Collected: 05/25/2024 03:05 PMOrdering Location: [facility] Received: 05/26/2024 07:20 AMPathologist: CHAN ThayerSpecimens: A) - SURG PATH, m[place] liver B) - SURG PATH, donor gallbladder C) - SURG PATH, donor reprofusion liver bx Performed By: #### S URGP ####[facility] (DEFAULT)[address] [place] [address] Clinical History End-stage liver dise ase. Medical History: Ulcerative colitis. Primary sclerosing cholangitis. Colon cancer. Cirrhosis of liver not due to alcohol. Normal [facility] Comment on above: Performed By: #### S URGP ####[facility] (DEFAULT)[address] [place] [address] Gross Description Normal [facility] Comment on above: Result Comment: The specimens are received in three properly labeled containers with the patient's name and accession number.A. The specimen is designated [place] liver and consists of a 1130 gram, 26.6 x 12.7 x 7.6 cm total hepatectomy specimen with attached gallbladder. The liver surface is green-swanson, intact with a 5.6 x 4.7 cm white-swanson, superficial discoloration on the anterior right lobe. The specimen is sectioned revealing a green-yellow diffusely nodular, 0.1-0.7 cm cut surface. The attached gallbladder is 10.3 x 4.7 x 3.8 cm, armijo-green, smooth and glistening, which is opened releasing a yellow-green, viscous bile with multiple, 0.1-0.3 cm, black friable calculi revealing a green-swanson, moderately velvety mucosa with trabeculations. Identified near the hilum is a 1.3 cm armijo-swanson probable lymph node. RS 9Cassettes:A1, right lobeA2, left lobeA3, caudate lobeA4, quadrate lobeA5, white-swanson liver capsule discolorationA6, gallbladderA7, lymph node, bisectedA8, hepatic vein margins, differentially inked (right black, mid orange, left blue)A9, hilar vessel marginsB. The specimen is designated donor gallbladder and consists of a 5.5 x 3.2 x 3.1 cm purple-brown, congested gallbladder which is focally disrupted near the fundus, closed with a black suture, and the cystic duct is closed with a silver metallic clip. The specimen is opened releasing a red-brown, hemorrhagic bile and revealing a red-brown, velvety mucosa. No calculi are identified. RS 1C. The specimen is designated donor reperfusion liver biopsy and consists of a 1.0 x 1.0 x 0.5 cm swanson-brown small wedge biopsy of liver. The specimen is bisected and submitted entirely. TE 1Lab Use Only: JobID [id number] for this case was: Matt Sauceda Performed By: #### S URGP ####[facility] (DEFAULT)[address] [place] [address] Microscopic Description Normal [facility] Comment on above: Result Comment: A mi croscopic examination was performed.All controls show appropriate reactivity. All immunohistochemistry (IHC), in situ hybridization (MELA), and histochemical tests were developed by and are performed at the [facility] Clinical Laboratory, Histology and IHC Lab, [address] [place] [address], [place] [address]. All Immunofluorescent (IF) tests were developed by and are performed at the [facility], Renal Division, [address] [place] [address]. All tests reported here, except for PD-L1, have not been cleared by or approved by the [place] Food and Drug Administration (FDA). The laboratory is regulated under CLIA as qualified to perform high-complexity testing. The tests are used for clinical purposes. They should not be regarded as investigational or for research. Performed By: #### S URGP ####[facility] (DEFAULT)[address] [place] [address] Pathologic Diagnosis Normal [facility] Comment on above: Result Comment: A. N ative liver, total hepatectomy:Well-established biliary-type cirrhosis with patchy cholestasis, mild bile ductular proliferation and foci of concentric dorcas-ductal fibrosis, consistent with history of primary sclerosing cholangitis; see commentGallbladder with chronic cholecystitis and cholelithiasisOne (1) benign pericystic lymph nodeB. Gallbladder, cholecystectomy:Gall bladder with chronic inflammationC. Liver, biopsy:Subcapsular hepatic parenchyma with mild subcapsular and centrilobular necrosis, consistent with mild ischemia/reperfusion injuryNo significant steatosis or fibrosis (Trichrome)Comment:The explanted liver (part A) shows biliary-type cirrhosis highlighted by trichrome stain with variable sized fibrous septa nodules of hepatocytes. The fibrous septa show mixed inflammation comprised of lymphocytes, plasma cells, histiocytes, few neutrophils and rare eosinophils. There is no definite interface activity. Admixed the inflammation are seen patchy areas of bile ductular proliferation. The portal tracts show patchy areas of periductal onion skin fibrosis. At places bile ducts are obliterated with evidence of fibrous scar. Periportal hepatocytes show canalicular cholestasis and features of cholate stasis. PAS-D stain is negative for diagnostic intracytoplasmic hyaline globules. Iron stain is negative for iron deposition. Overall the findings are consistent with patient's clinical history of primary sclerosing cholangitis.There is no evidence of malignancy. at 2100 EDT Performed By: #### S URGP ####[facility] (DEFAULT)[address] [place] [address] Professional Interpretation Performed at: Normal [facility] Comment on above: Result Comment: [facility] CLINICAL LABORATORYFor Immediate Release to Patient's MyChart? [address] [place] [address] Performed By: #### S URGP ####[facility] (DEFAULT)[address] [place] [address] THROMBIN TIMEon 05-25-2024 Thrombin Time 17.3 sec Normal 13.0-20.0 [facility] Comment on above: Performed By: #### P TPTT, TT, FIB ####[facility] (DEFAULT)[address] [place] [address] TRANSPLANT RECIPIENT HEPATIT IS C BY PCR QUANTon 05-25-2024 Hepatitis C By Pcr, Quant. <12 Normal <12 [facility] Comment on above: Order Comment: This test was performed using a real time PCR assay. The dynamic range for this assay is 12-100,000,000 IU/mL. Performed By: #### T RANSPLANT RECIPIENT HEPATITIS C BY PCR QUANT ####[facility] (DEFAULT)[address] [place] [address] Hepatitis C By Pcr,(Log) < Normal <1.08 [facility] Comment on above: Order Comment: This test was performed using a real time PCR assay. The dynamic range for this assay is 12-100,000,000 IU/mL. Performed By: #### T RANSPLANT RECIPIENT HEPATITIS C BY PCR QUANT ####[facility] (DEFAULT)[address] [place] [address] TRANSPLANT RECIPIENT INFECTI OUS SEROLOGYon 05-25-2024 Hep B Core Ab,Total (IgG+IgM) Negative Normal Negative [facility] Comment on above: Performed By: #### T RANSPLANT RECIPIENT INFECTIOUS SEROLOGY ####[facility] (DEFAULT)[address] [place] [address] Hep B Surface Ab Negative Normal Negative [facility] Comment on above: Performed By: #### T RANSPLANT RECIPIENT INFECTIOUS SEROLOGY ####[facility] (DEFAULT)[address] [place] [address] Hepatitis B Surface Ag Negative Normal Negative [facility] Comment on above: Performed By: #### T RANSPLANT RECIPIENT INFECTIOUS SEROLOGY ####[facility] (DEFAULT)[address] [place] [address] Hepatitis C Antibody Negative Normal Negative [facility] Comment on above: Performed By: #### T RANSPLANT RECIPIENT INFECTIOUS SEROLOGY ####[facility] (DEFAULT)[address] [place] [address] HIV-1/HIV-2 Ab With p24 Antigen Non-Reactive Normal Non Reactive [facility] Comment on above: Performed By: #### T RANSPLANT RECIPIENT INFECTIOUS SEROLOGY ####[facility] (DEFAULT)[address] [place] [address] TYPE AND SCREENon 05-25-2024 ABO/RH(D) TYPE Positive Normal [facility] Comment on above: Performed By: #### I [id number], XM ####[facility] (DEFAULT)[address] [place] [address] Specimen Expiration 05/28/2024 23:59 Normal [facility] Comment on above: Performed By: #### I [id number], XM ####[facility] (DEFAULT)[address] [place] [address]47 URIC ACIDon 05-25-2024 Urate [Mass/Vol] 3.6 mg/dL Normal 3.5-7.0 [facility] Comment on above: Performed By: #### I PB, URICB, MGO, LIPA ####[facility] (DEFAULT)[address] [place] [address] US ABDOMEN LIVER TRANSPLANT DOPPLERon 05-25-2024 US ABDOMEN LIVER TRANSPLANT DOPPLER Normal [facility] VIRTUAL CROSSMATCHon 025 DONOR ID [id number], Normal [facility] Comment on above: Performed By: #### V IRCROM ####[facility] (DEFAULT)[address] [place] [address]40 DONOR MRN (DIDMR) [id number] Normal [facility] Comment on above: Performed By: #### V IRCROM ####[facility] (DEFAULT)[address] [place] [address] VIRTUAL CROSSMATCH Negative Normal [facility] Comment on above: Performed By: #### V IRCROM ####[facility] (DEFAULT)[address] [place] [address]283 VIRTUAL XM COMMENT [facility] Comment on above: Result Comment: The VIRTUAL XM between this recipient/donor pair should be considered NEGATIVE.Donor HLA typing was obtained from [employer].Some of the reagents used for testing in the Clinical Histocompatibility Laboratory have yet to be approved by the FDA. Our certification by CLIA to perform high complexity tests allows us to use these reagents in the context of a stringent QCprogram, and obviates the need for FDA approval.Testing performed by the [facility] Clinical Histocompatibility Laboratory. [facility] number: [id number]. CLIA number: [id number], Director: Urban Millard, PhD, F([facility]). Performed By: #### V IRCROM ####[facility] (DEFAULT)[address] [place] [address]72 XR CHEST 1 VIEW PORTABLEon 0 05-25-2024 XR CHEST 1 VIEW PORTABLE Normal [facility] XR CHEST PA AND LATERAL 2 EWSon 05-25-2024 XR CHEST PA AND LATERAL 2 VIEWS Normal [facility] FLEXIBLE SIGMOIDOSCOPYon [facility] Gastroenterology Patient Name: Jc Dunaway Procedure Date: 05/13/2024 2:36 PM Date of : 1965 Admit Type: Outpatient Age: 58 Room: Travel Cart Gender: Male Note Status: Finalized Attending MD: Jess Gamez MD, [id number] Procedure: Pouchoscopy Attending Participation: I personally performed the entire procedure. Indications: Diarrhea, Rectal bleeding, Rectal pain Providers: Jess Gamez MD, Corie Sellers RN (Nurse), Harvey Nuñez, Shipping And Receiving Weigher Patient Profile: This is a 58 year old male. Refer to note in patient chart for documentation of history and physical. History of colon cancer s/p total proctocolectomy. Cirrhosis PSC. INR 1.6, plt 200s. Has rectal pain, diarrhea, blood in the stool. Referring MD: Babs Marley MD Complications: No immediate complications. Medicines: Midazolam 2 mg IV, Fentanyl 50 micrograms IV Requesting Provider: Procedure: Pre-Anesthesia Assessment: - Prior to the procedure, a History and Physical was performed, and patient medications and allergies were reviewed. The risks and benefits of the procedure and the sedation options and risks were discussed with the patient. All questions were answered and informed consent was obtained. Patient identification and proposed procedure were verified by the physician, the nurse and the machine shop repair technician in the procedure room at 14:43 PM. Mental Status Examination: alert and oriented. Airway Examination: normal oropharyngeal airway and neck mobility and Mallampati Class II (the uvula but not tonsillar pillars visualized). Respiratory Examination: clear to auscultation. CV Examination: RRR, no murmurs, no S3 or S4 and Abdominal Examination: +BS, soft, non-tender, no masses. Prophylactic Antibiotics: The patient does not require prophylactic antibiotics. Prior Anticoagulants: The patient has taken no anticoagulant or antiplatelet agents. ASA Grade Assessment: II - A patient with mild systemic disease. After reviewing the risks and benefits, the patient was deemed in satisfactory condition to undergo the procedure. The anesthesia plan was to use moderate sedation / analgesia (conscious sedation). Immediately prior to administration of medications, the patient was re-assessed for adequacy to receive sedatives. The physical status of the patient was re-assessed after the procedure. - I have reviewed and am in agreement with the patient history as documented in [facility]. After obtaining informed consent, the endoscope was passed under direct vision. Throughout the procedure, the patient's blood pressure, pulse, and oxygen saturations were monitored continuously. The Endoscope [id number] was introduced through the anus and advanced to the ileoanal pouch and into the hawa-terminal ileum. The procedure was performed without difficulty. The patient tolerated the procedure well. Findings: Hemorrhoids were found on perianal exam. Subjective tight sphincter on rectal exam. 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 There was an ileal pouch 2 cm from the anal verge. This was characterized by visible sutures. The pouch capacity was small in size. There was a rectal cuff beginning at at 1 cm from the anal verge, characterized by healthy appearing mucosa and an intact staple line. The cuff extended 1 cm in length. Biopsies were taken with a cold forceps for histology. Biopsies could also have included ileal tissue. Estimated blood loss was minimal. Impression: Ulceration/fibrin was noted to be on top of sutures (This was examined with second attending, Dr Martin. This was friable with minimal contact bleeding. No other sites or (more content not included)... LAB, [facility] Radiology Study observation (narrative) [facility] SURG PATH REQUESTon 05-14-19 Case Report [facility] Comment on above: Result Comment: Surg ical Pathology Report Case: [id number] Provider: Jess Gamez MD Collected: 05/13/2024 02:59 PMOrdering Location: [facility] Received: 05/13/2024 03:45 PM DepartmentPathologist: Zachary Flanagan, DOSpecimen: SURG PATH, Random colon bx evaluate for IBD and microscopic colitis Performed By: #### S URGP ####[facility] (DEFAULT)[address] [place] [address] Clinical History Diagnoses: Ulcerativ e pancolitis with complication [K51.019]. Preop Diagnosis: Evaluate for IBD and microscopic colitis. Medical History: Ulcerative colitis. Primary sclerosing cholangitis. Colon cancer. Cirrhosis of liver not due to alcohol. [facility] Comment on above: Performed By: #### S URGP ####[facility] (DEFAULT)[address] [place] [address] Gross Description Normal [facility] Comment on above: Result Comment: The specimen is received in one properly labeled container with the patient's name and accession number.A. The specimen is designated random colon bx evaluate for IBD and microscopic colitis and consists of two fragments of swanson-pink soft tissue, up to 0.3 cm in greatest dimension. TE 1Lab Use Only: JobID [id number] for this case was: Yolanda Butler Performed By: #### S URGP ####[facility] (DEFAULT)[address] [place] [address] Microscopic Description A microscopic examination was performed. [facility] Comment on above: Performed By: #### S URGP ####[facility] (DEFAULT)[address] [place] [address] Pathologic Diagnosis [facility] Comment on above: Result Comment: blaise Larson, biopsy:Ileocolonic mucosa with no significant pathologic changeNo significant acute inflammation / colitisNegative for dysplasia at 1241 EDT Performed By: #### S URGP ####[facility] (DEFAULT)[address] [place] [address] Professional Interpretation Performed at: [facility] Comment on above: Result Comment: [facility] CLINICAL LABFor Immediate Release [facility] [id number] [address] Performed By: #### S URGP ####[facility] (DEFAULT)[address] [place] [address] Surgery Visit Reporton 05-03 Surgery Visit Report Normal [facility] Activated partial thrombopla stin time (aPTT) in platelet poor plasma by coagulation aOrdered By: Babs Marley on 04-28-2024 aPTT Coag (PPP) [Time] 32.7 s 24.1-36.2 [facility] International normalized rat io (INR) calculationOrdered By: Babs Marley on 04-28-2024 INR Coag (Bld) [Relative time] 1.6 {INR} [facility] Partial Thromboplast Timeon 04-28-2024 aPTT Coag (Bld) [Time] 32.7 s Normal 24.1-36.2 [facility] Comment on above: Performed By: #### L 300.3900, L300.4310 ####[facility] [address] [place], [address] Prothrombin Time w/INRon INR Coag (PPP) [Relative time] 1.6 {INR} Normal [facility] Comment on above: Performed By: #### L 300.3900, L300.4310 ####[facility] [address] [place], [address] PT Coag (PPP) [Time] 19.1 s High 11.7-14.9 [facility] Comment on above: Performed By: #### L 300.3900, L300.4310 ####[facility] [address] [place], [address] Prothrombin timeOrdered By: Babs Marley on 04-28-2024 PT Coag (PPP) [Time] 19.1 s High 11.7-14.9 [facility] aPTT Coag (PPP) [Time]Ordere d By: Babs Marley on 04-28-2024 aPTT Coag (Bld) [Time] 32.7 s 24.1-36.2 [facility] AST(SGOT)on 04-27-2024 AST [Catalytic activity/Vol] 139 U/L High <=37 [facility] Comment on above: Performed By: #### L 500.2500, L501.4700, L501.4600, L501.4100, L501.1800, L501.4305, L100.0100, L501.4405 ####[facility] [address] [place], [address] Absolute lymphocyte countOrd ered By: Babs Marley on 04-27-2024 Lymphocytes Auto (Unsp spec) [#/Vol] 1.15 10*3/uL 0.83-4.51 [facility] Absolute neutrophil countOrd ered By: Babs Marley on 04-27-2024 Neutrophils (Bld) [#/Vol] 4.8 10*3/uL 2.0-7.7 [facility] Alanine Aminotransferas (SGP T)on 04-27-2024 ALT [Catalytic activity/Vol] 99 U/L High <=46 [facility] Comment on above: Performed By: #### L 500.2500, L501.4700, L501.4600, L501.4100, L501.1800, L501.4305, L100.0100, L501.4405 ####[facility] [address] [place], [address] Albumin, Serumon 04-27-2024 Albumin [Mass/Vol] 3.9 g/dL Normal 3.5-5.0 [facility] Comment on above: Performed By: #### L 500.2500, L501.4700, L501.4600, L501.4100, L501.1800, L501.4305, L100.0100, L501.4405 ####[facility] [address] [place], [place], [id number] Alkaline Phosphataseon 04-27 ALK PHOS 616 U/L High 40-129 [facility] Comment on above: Performed By: #### L 500.2500, L501.4700, L501.4600, L501.4100, L501.1800, L501.4305, L100.0100, L501.4405 ####[facility] [address] [place], [place], [id number] Automated lymphocyte count a s percentage of total leukocytesOrdered By: Babs Marley on 04-27-2024 Lymphocytes/100 WBC Auto (Unsp spec) 16.7 % Low 19-41 [facility] BUN/creatinine ratioOrdered By: Babs Marley on 04-27-2024 Urea nitrogen/Creatinine [Mass ratio] 14.8 mg/mg 12-19 [facility] Basic Metabolic Profile (BMP )on 04-27-2024 BUN/CRE 14.8 RATIO Normal 12-19 [facility] Comment on above: Performed By: #### L 500.2500, L501.4700, L501.4600, L501.4100, L501.1800, L501.4305, L100.0100, L501.4405 ####[facility] [address] [place], [address] Calcium [Mass/Vol] 9.1 mg/dL Normal 7.6-11.0 [facility] Comment on above: Performed By: #### L 500.2500, L501.4700, L501.4600, L501.4100, L501.1800, L501.4305, L100.0100, L501.4405 ####[facility] [address] [place], [address] CO2 [Moles/Vol] 22.1 mmol/L Normal 22.0-29.0 [facility] Comment on above: Performed By: #### L 500.2500, L501.4700, L501.4600, L501.4100, L501.1800, L501.4305, L100.0100, L501.4405 ####[facility] [address] [place], [address] Creatinine [Mass/Vol] 0.7 mg/dL Low 0.8-1.3 [facility] Comment on above: Performed By: #### L 500.2500, L501.4700, L501.4600, L501.4100, L501.1800, L501.4305, L100.0100, L501.4405 ####[facility] [address] [place], [address] GFR/1.73 sq M.predicted among non-blacks MDRD (S/P/Bld) [Vol rate/Area] 106 mL/min/{1.73_m2} Normal >60 [facility] Comment on above: Result Comment: mL/m in/1.73m2 CKD-EPI Creatinine Equation (2020) Performed By: #### L 500.2500, L501.4700, L501.4600, L501.4100, L501.1800, L501.4305, L100.0100, L501.4405 ####[facility] [address] [place], [address] Glucose [Mass/Vol] 91 mg/dL Normal 70-99 [facility] Comment on above: Performed By: #### L 500.2500, L501.4700, L501.4600, L501.4100, L501.1800, L501.4305, L100.0100, L501.4405 ####[facility] [address] [place], [address] Urea nitrogen [Mass/Vol] 11 mg/dL Normal 4-19 [facility] Comment on above: Performed By: #### L 500.2500, L501.4700, L501.4600, L501.4100, L501.1800, L501.4305, L100.0100, L501.4405 ####[facility] [address] [place], [place], [id number] Basophil percentageOrdered B y: Babs Marley on 04-27-2024 Basophils/100 WBC (Bld) 0.7 % 0-1 [facility] Bilirubin directOrdered By: Babs Marley on 04-27-2024 Bilirubin.direct [Mass/Vol] 3.11 mg/dL High 0.00-0.30 [facility] Bilirubin, Directon 04-27-19 25 Bilirubin.direct [Mass/Vol] 3.11 mg/dL High 0.00-0.30 [facility] Comment on above: Performed By: #### L 500.2500, L501.4700, L501.4600, L501.4100, L501.1800, L501.4305, L100.0100, L501.4405 ####[facility] [address] [place], [address] Bilirubin, totalOrdered By: Babs Marley on 04-27-2024 Bilirubin [Mass/Vol] 3.96 mg/dL High 0.00-1.30 [facility] CBC W/Diff, Automatedon 04-03 Absolute Lymph 1.15 X10 3/uL Normal 0.83-4.51 [facility] Comment on above: Performed By: #### L 500.2500, L501.4700, L501.4600, L501.4100, L501.1800, L501.4305, L100.0100, L501.4405 ####[facility] [address] [place], [address] Absolute Neut 4.8 X10 3/uL Normal 2.0-7.7 [facility] Comment on above: Performed By: #### L 500.2500, L501.4700, L501.4600, L501.4100, L501.1800, L501.4305, L100.0100, L501.4405 ####[facility] [address] [place], [address] Basophils/100 WBC (Bld) 0.7 % Normal 0-1 [facility] Comment on above: Performed By: #### L 500.2500, L501.4700, L501.4600, L501.4100, L501.1800, L501.4305, L100.0100, L501.4405 ####[facility] [address] [place], [address] Eosinophils/100 WBC (Bld) 2.8 % Normal 0-5 [facility] Comment on above: Performed By: #### L 500.2500, L501.4700, L501.4600, L501.4100, L501.1800, L501.4305, L100.0100, L501.4405 ####[facility] [address] [place], [address] Erythrocyte distribution width (RBC) [Ratio] 15.5 % High 11.6-14.6 [facility] Comment on above: Performed By: #### L 500.2500, L501.4700, L501.4600, L501.4100, L501.1800, L501.4305, L100.0100, L501.4405 ####[facility] [address] [place], [address] Hematocrit (Bld) [Volume fraction] 38.4 % Low 40-54 [facility] Comment on above: Performed By: #### L 500.2500, L501.4700, L501.4600, L501.4100, L501.1800, L501.4305, L100.0100, L501.4405 ####[facility] [address] [place], [address] Hemoglobin (Bld) [Mass/Vol] 12.8 g/dL Low 13.0-16.5 [facility] Comment on above: Performed By: #### L 500.2500, L501.4700, L501.4600, L501.4100, L501.1800, L501.4305, L100.0100, L501.4405 ####[facility] [address] [place], [address] IG% 0.400 Normal 0.0-0.9 [facility] Comment on above: Result Comment: IG% - Immature Granulocytes (promyelocytes, myelocytes andmetamyelocytes) > 1% indicates that a LEFT SHIFT is Present. Performed By: #### L 500.2500, L501.4700, L501.4600, L501.4100, L501.1800, L501.4305, L100.0100, L501.4405 ####[facility] [address] [place], [address] Lymphocytes/100 WBC (Bld) 16.7 % Low 19-41 [facility] Comment on above: Performed By: #### L 500.2500, L501.4700, L501.4600, L501.4100, L501.1800, L501.4305, L100.0100, L501.4405 ####[facility] [address] [place], [address] MCH (RBC) [Entitic mass] 32.5 pg High 27.0-32.0 [facility] Comment on above: Performed By: #### L 500.2500, L501.4700, L501.4600, L501.4100, L501.1800, L501.4305, L100.0100, L501.4405 ####[facility] [address] [place], [address] MCHC (RBC) [Mass/Vol] 33.3 g/dL Normal 32-36 [facility] Comment on above: Performed By: #### L 500.2500, L501.4700, L501.4600, L501.4100, L501.1800, L501.4305, L100.0100, L501.4405 ####[facility] [address] [place], [address] MCV (RBC) [Entitic vol] 97.5 fL High 80-94 [facility] Comment on above: Performed By: #### L 500.2500, L501.4700, L501.4600, L501.4100, L501.1800, L501.4305, L100.0100, L501.4405 ####[facility] [address] [place], [address] Monocytes/100 WBC (Bld) 9.9 % Normal 0-10 [facility] Comment on above: Performed By: #### L 500.2500, L501.4700, L501.4600, L501.4100, L501.1800, L501.4305, L100.0100, L501.4405 ####[facility] [address] [place], [address] Neutrophils/100 WBC (Bld) 69.5 % Normal 47-70 [facility] Comment on above: Performed By: #### L 500.2500, L501.4700, L501.4600, L501.4100, L501.1800, L501.4305, L100.0100, L501.4405 ####[facility] [address] [place], [address] Nucleated RBC (Bld) [#/Vol] 0 10*3/uL Normal 0-5 [facility] Comment on above: Performed By: #### L 500.2500, L501.4700, L501.4600, L501.4100, L501.1800, L501.4305, L100.0100, L501.4405 ####[facility] [address] [place], [address] Platelet mean volume (Bld) [Entitic vol] 11.9 fL Normal 6.2-12.0 [facility] Comment on above: Performed By: #### L 500.2500, L501.4700, L501.4600, L501.4100, L501.1800, L501.4305, L100.0100, L501.4405 ####[facility] [address] [place], [address] Platelets (Bld) [#/Vol] 253 10*3/uL Normal 150-450 [facility] Comment on above: Performed By: #### L 500.2500, L501.4700, L501.4600, L501.4100, L501.1800, L501.4305, L100.0100, L501.4405 ####[facility] [address] [place], [place], [address]([phone]) RBC (Bld) [#/Vol] 3.94 10*6/uL Low 4.6-6.2 [facility] Comment on above: Performed By: #### L 500.2500, L501.4700, L501.4600, L501.4100, L501.1800, L501.4305, L100.0100, L501.4405 ####[facility] [address] [place], [place], [phone]) RDW SD 55.9 fl High 35.1-43.9 [facility] Comment on above: Performed By: #### L 500.2500, L501.4700, L501.4600, L501.4100, L501.1800, L501.4305, L100.0100, L501.4405 ####[facility] [address] [place], [address] WBC (Bld) [#/Vol] 6.9 10*3/uL Normal 4.4-11.0 [facility] Comment on above: Performed By: #### L 500.2500, L501.4700, L501.4600, L501.4100, L501.1800, L501.4305, L100.0100, L501.4405 ####[facility] [address] [place], [place], [id number] Carbon dioxide measurementOr dered By: Babs Marley on 04-27-2024 CO2 [Moles/Vol] 22.1 mmol/L 22.0-29.0 [facility] Chloride measurementOrdered By: Babs Marley on 04-27-2024 Chloride [Moles/Vol] 103 mmol/L 96-108 [facility] Creatinine [Moles/Vol]Ordere d By: Babs Marley on 04-27-2024 Creatinine [Mass/Vol] 0.7 mg/dL Low 0.8-1.3 [facility] Eosinophil percentageOrdered By: Babs Marley on 04-27-2024 Eosinophils/100 WBC (Bld) 2.8 % 0-5 [facility] Erythrocyte distribution wid th ratioOrdered By: Babs Marley on 04-27-2024 Erythrocyte distribution width (RBC) [Ratio] 15.5 % High 11.6-14.6 [facility] Erythrocyte distribution wid th standard deviationOrdered By: Babs Marley on 04-27-2024 Erythrocyte distribution width (RBC) [Entitic vol] 55.9 fL High 35.1-43.9 [facility] Erythrocyte distribution width (RBC) [Ratio] 55.9 fl High 35.1-43.9 [facility] GFR/1.73 sq M.predicted jesus g non-blacks MDRD (S/P/Bld) [Vol rate/Area]Ordered By: Babs Marley on 04-27-2024 Estimated GFR (MDRD) Non-Af Amer 106 >60 [facility] Comment on above: mL/min/1.73m2 CKD-EP I Creatinine Equation (2020) Glomerular filtration rate ( GFR) estimation/1.73 sq m using serum, plasma, or whole bOrdered By: Babs Marley on 04-27-2024 GFR/1.73 sq M.predicted among non-blacks MDRD (S/P/Bld) [Vol rate/Area] 106 mL/min/{1.73_m2} >60 [facility] Comment on above: mL/min/1.73m2 CKD-EP I Creatinine Equation (2020) Hematocrit Auto (Bld) [Volum e fraction]Ordered By: Babs Marley on 04-27-2024 Hematocrit (Bld) [Volume fraction] 38.4 % Low 40-54 [facility] Hemoglobin measurementOrdere d By: Babs Marley on 04-27-2024 Hemoglobin (Bld) [Mass/Vol] 12.8 g/dL Low 13.0-16.5 [facility] Immature granulocytes/100 WB C Auto (Bld)Ordered By: Babs Marley on 04-27-2024 Immature granulocytes/100 WBC (Bld) 0.400 % 0.0-0.9 [facility] Comment on above: IG% - Immature Granu locytes (promyelocytes, myelocytes and metamyelocytes) > 1% indicates that a LEFT SHIFT is Present. Laboratory - Chemistry and C hemistry - challengeOrdered By: Babs Marley on 04-27-2024 AST [Catalytic activity/Vol] 139 U/L High <38 [facility] Lymphocytes Auto (Unsp spec) [#/Vol]Ordered By: Babs Marley on 04-27-2024 Lymphocytes (Bld) [#/Vol] 1.15 10*3/uL 0.83-4.51 [facility] Lymphocytes/100 WBC Auto (Un sp spec)Ordered By: Babs Marley on 04-27-2024 Lymphocytes/100 WBC (Bld) 16.7 % Low 19-41 [facility] MCV (mean corpuscular volume ) determinationOrdered By: Babs Marley on 04-27-2024 MCV (RBC) [Entitic vol] 97.5 fL High 80-94 [facility] Mean corpuscular hemoglobin (MCH) determinationOrdered By: Babs Marley on 04-27-2024 MCH (RBC) [Entitic mass] 32.5 pg High 27.0-32.0 [facility] Mean corpuscular hemoglobin concentration (MCHC) determinationOrdered By: Babs aMrley on 04-27-2024 MCHC (RBC) [Mass/Vol] 33.3 g/dL 32-36 [facility] Mean platelet volume determi nationOrdered By: Babs Marley on 04-27-2024 Platelet mean volume (Bld) [Entitic vol] 11.9 fL 6.2-12.0 [facility] Monocyte percentageOrdered B y: Babs Marley on 04-27-2024 Monocytes/100 WBC (Bld) 9.9 % 0-10 [facility] Neutrophil percentageOrdered By: Babs Marley on 04-27-2024 Neutrophils/100 WBC (Bld) 69.5 % 47-70 [facility] Nucleated red blood cell per centageOrdered By: Babs Marley on 04-27-2024 Nucleated RBC/100 WBC (Bld) [Ratio] 0 % 0-5 [facility] Platelet countOrdered By: Yissel Marley on 04-27-2024 Platelets (Bld) [#/Vol] 253 10*3/uL 150-450 [facility] RBC Auto (Bld) [#/Vol]Ordere d By: Babs Marley on 04-27-2024 RBC (Bld) [#/Vol] 3.94 10*6/uL Low 4.6-6.2 [facility] Serum glucose measurement (m ass/volume)Ordered By: Babs Marley on 04-27-2024 Glucose [Mass/Vol] 91 mg/dL 70-99 [facility] Serum or plasma alanine craig otransferase (ALT) measurementOrdered By: Babs Marley on 04-27-2024 ALT [Catalytic activity/Vol] 99 U/L High <47 [facility] Serum or plasma albumin megha urement (mass/volume)Ordered By: Babs Marley on 04-27-2024 Albumin [Mass/Vol] 3.9 g/dL 3.5-5.0 [facility] Serum or plasma alkaline sal sphatase measurementOrdered By: Babs Marley on 04-27-2024 ALP [Catalytic activity/Vol] 616 U/L High 40-129 [facility] Serum or plasma anion gap de termination (moles/volume)Ordered By: Babs Marley on 04-27-2024 Anion gap [Moles/Vol] 12 mmol/L 5-15 [facility] Serum or plasma calcium megha urement (mass/volume)Ordered By: Babs Marley on 04-27-2024 Calcium [Mass/Vol] 9.1 mg/dL 7.6-11.0 [facility] Serum or plasma creatinine m easurement (moles/volume)Ordered By: Babs Marley on 04-27-2024 Creatinine [Moles/Vol] 0.7 mg/dL Low 0.8-1.3 [facility] Serum or plasma potassium me asurementOrdered By: Babs Marley on 04-27-2024 Potassium [Moles/Vol] 4.0 mmol/L 3.3-5.1 [facility] Serum or plasma sodium measu rement (moles/volume)Ordered By: Babs Marley on 04-27-2024 Sodium [Moles/Vol] 137 mmol/L 133-145 [facility] Serum or plasma urea nitroge n measurement (mass/volume)Ordered By: Babs Marley on 04-27-2024 Urea nitrogen [Mass/Vol] 11 mg/dL 4-19 [facility] Total Bilirubinon 04-27-2024 Bilirubin [Mass/Vol] 3.96 mg/dL High 0.00-1.30 [facility] Comment on above: Performed By: #### L 500.2500, L501.4700, L501.4600, L501.4100, L501.1800, L501.4305, L100.0100, L501.4405 ####[facility] [address] [place], [address] White blood cell (WBC) count Ordered By: Babs Marley on 04-27-2024 WBC (Bld) [#/Vol] 6.9 10*3/uL 4.4-11.0 [facility] INVASIVE CARDIOVASCULAR PROC EDUREon 04-15-2024 INVASIVE CARDIOVASCULAR PROCEDURE Normal [facility] CBC,PLATELETSon 04-14-2024 Erythrocyte distribution width (RBC) [Ratio] 15.4 % High 10.9 - 14.3 % [facility] Hematocrit (Bld) [Volume fraction] 36.5 % Low 39.6 - 48.8 % [facility] Hemoglobin (Bld) [Mass/Vol] 12.4 g/dL Low 13.4 - 16.8 g/dL [facility] Interpretation and review of laboratory results Abnormal [facility] MCH (RBC) [Entitic mass] 32.4 pg 26.1 - 33.3 pg [facility] MCHC (RBC) [Mass/Vol] 34 g/dL 31.9 - 36.5 g/dL [facility] MCV (RBC) [Entitic vol] 95.3 fL High 79.0 - 94.5 fL [facility] Platelet mean volume (Bld) [Entitic vol] 11.3 fL 8.7 - 12.3 fL [facility] Platelets (Bld) [#/Vol] 320 10*3/uL 146 - 337 K/uL [facility] RBC (Bld) [#/Vol] 3.83 10*6/uL Low [facility] WBC (Bld) [#/Vol] 6.2 10*3/uL 3.73 - 10. 10 K/uL [facility] Hematocrit (Bld) [Volume fraction] 36.5 % Low 39.6-48.8 [facility] Comment on above: Performed By: #### H EMO ####[facility] (DEFAULT)[address] [place] [id number] Hemoglobin (Bld) [Mass/Vol] 12.4 g/dL Low 13.4-16.8 [facility] Comment on above: Performed By: #### H EMO ####[facility] (DEFAULT)[address] [place] [address] MCV (RBC) [Entitic vol] 95.3 fL High 79.0-94.5 [facility] Comment on above: Performed By: #### H EMOGC ####[facility] (DEFAULT)[address] [place] [address] Mean Cell Hgb 32.4 pg Normal 26.1-33.3 [facility] Comment on above: Performed By: #### H EMO ####[facility] (DEFAULT)[address] [place] [address] Mean Cell Hgb Conc 34.0 g/dL Normal 31.9-36.5 [facility] Comment on above: Performed By: #### H EMOGC ####[facility] (DEFAULT)[address] [place] [address] Platelet mean volume (Bld) [Entitic vol] 11.3 fL Normal 8.7-12.3 [facility] Comment on above: Performed By: #### H [facility] ####[facility] (DEFAULT)[address] [place] [address] Platelets (Bld) [#/Vol] 320 10*3/uL Normal 146-337 [facility] Comment on above: Performed By: #### H [facility] ####[facility] (DEFAULT)[address] [place] [address] RBC (Bld) [#/Vol] 3.83 10*6/uL Low 4.38-5.83 [facility] Comment on above: Performed By: #### H [facility] ####[facility] (DEFAULT)[address] [place] [address] RBC Distribution 15.4 % High 10.9-14.3 [facility] Comment on above: Performed By: #### H [facility] ####[facility] (DEFAULT)[address] [place] [address] WBC (Bld) [#/Vol] 6.20 10*3/uL Normal 3.73-10.10 [facility] Comment on above: Performed By: #### H [facility] ####[facility] (DEFAULT)[address] [place] [address] CHEM 6 (LYTES, BUN CREA)on 0 04-14-2024 Anion gap [Moles/Vol] 11 mmol/L 7 - 17 mmol/L [facility] Chloride [Moles/Vol] 104 mmol/L 98 - 10 8 mmol/L [facility] CO2 [Moles/Vol] 23 mmol/L 21 - 31 mmol/L [facility] Creatinine [Mass/Vol] 0.68 mg/dL Low 0.70 - 1.30 mg/dL [facility] eGFR, CKD-EPI, Male - PINF [facility] Comment on above: Reported eGFR is bas ed on the CKD-EPI 2020 equation using creatinine, age, and sex. Interpretation and review of laboratory results Abnormal [facility] Potassium [Moles/Vol] 4.3 mmol/L 3.5 - 5.0 mmol/L [facility] Sodium [Moles/Vol] 134 mmol/L Low 135 - 145 mmol/L [facility] [facility] Urea nitrogen [Mass/Vol] 15 mg/dL 7 - 25 mg/dL [facility] Urea nitrogen/Creatinine [Mass ratio] 22 mg/mg [facility] Anion gap [Moles/Vol] 11 mmol/L Normal 7-17 [facility] Comment on above: Performed By: #### C HM6 ####[facility] (DEFAULT)[address] [place] [address] Chloride [Moles/Vol] 104 mmol/L Normal 98-108 [facility] Comment on above: Performed By: #### C HM6 ####[facility] (DEFAULT)[address] [place] [address] CO2 [Moles/Vol] 23 mmol/L Normal 21-31 [facility] Comment on above: Performed By: #### C HM6 ####[facility] (DEFAULT)[address] [place] [address] Creatinine [Mass/Vol] 0.68 mg/dL Low 0.70-1.30 [facility] Comment on above: Performed By: #### C HM6 ####[facility] (DEFAULT)[address] [facility] [place] [address] eGFR, CKD-EPI, Male > Normal >=60 [facility] Comment on above: Result Comment: Repo rted eGFR is based on the CKD-EPI 2020 equation using creatinine, age, and sex. Performed By: #### C HM6 ####[facility] (DEFAULT)[address] [place] [address] Potassium [Moles/Vol] 4.3 mmol/L Normal 3.5-5.0 [facility] Comment on above: Performed By: #### C HM6 ####[facility] (DEFAULT)[address] [place] [address] Sodium [Moles/Vol] 134 mmol/L Low 135-145 [facility] Comment on above: Performed By: #### C HM6 ####[facility] (DEFAULT)[address] [place] [address] Urea nitrogen [Mass/Vol] 15 mg/dL Normal 7-25 [facility] Comment on above: Performed By: #### C HM6 ####[facility] (DEFAULT)[address] [place] [address] Urea nitrogen/Creatinine [Mass ratio] 22 mg/mg Normal [facility] Comment on above: Performed By: #### C HM6 ####[facility] (DEFAULT)[address] [place] [address] Cardiac catheterization stud yon 04-14-2024 [facility] Radiology Study observation (narrative) [facility] PROTIME-INRon 04-14-2024 INR Coag (Bld) [Relative time] 1.5 {INR} High 0.9 - 1.1 [facility] Interpretation and review of laboratory results Abnormal [facility] PT Coag (PPP) [Time] 18.2 s High [facility] INR Coag (PPP) [Relative time] 1.5 {INR} High 0.9-1.1 [facility] Comment on above: Performed By: #### P TI ####[facility] (DEFAULT)[address] [place] [address] PT Coag (PPP) [Time] 18.2 s High 11.9-14.2 [facility] Comment on above: Performed By: #### P TI ####[facility] (DEFAULT)[address] [place] [address] Gastroenterology Visit Repor ton 04-11-2024 Gastroenterology Visit Report Normal [facility] ARTERIAL BLOOD GASon 03-24- 025 Base excess Calc (Bld) [Moles/Vol] -1.8000 mmol/L -3.0 - 3.0 mmol/L [facility] CO2 (Bld) [Partial pressure] 36 mm[Hg] [facility] HCO3 (Bld) [Moles/Vol] 23 mmol/L 22 - 28 mmol/L [facility] Inhaled oxygen concentration 21 % [facility] Interpretation and review of laboratory results Abnormal [facility] Oxygen (Bld) [Partial pressure] 95 mm[Hg] [facility] Oxygen saturation in Blood 99 % High 94 - 98 % [facility] PF Ratio 452 [facility] pH (Bld) 7.41 [pH] 7.35 - 7.45 [facility] Specimen source Nom (Unsp spec) Arterial [facility] Base Excess -1.8 mmol/L Normal -3.0-3.0 [facility] Comment on above: Performed By: #### G AS5 ####[facility] (DEFAULT)[address] [place] [address] FIO2 21 % Normal [facility] Comment on above: Performed By: #### G AS5 ####[facility] (DEFAULT)[address] [place] [address] HCO3 (Bld) [Moles/Vol] 23 mmol/L Normal 22-28 [facility] Comment on above: Performed By: #### G AS5 ####[facility] (DEFAULT)[address] [place] [address] Oxygen saturation in Blood 99 % High 94-98 [facility] Comment on above: Performed By: #### G AS5 ####[facility] (DEFAULT)[address] [place] [address] pCO2 36 mm Hg Normal 32-48 [facility] Comment on above: Performed By: #### G AS5 ####[facility] (DEFAULT)[address] [place] [address] PF Ratio 452 Normal [facility] Comment on above: Performed By: #### G AS5 ####[facility] (DEFAULT)[address] [place] [address] pH, Arterial 7.41 Normal 7.35-7.45 [facility] Comment on above: Performed By: #### G AS5 ####[facility] (DEFAULT)[address] [place] [address] pO2 95 mm Hg Normal 83-108 [facility] Comment on above: Performed By: #### G AS5 ####[facility] (DEFAULT)[address] [place] [address] Specimen type Nom (Spec) Arterial Normal [facility] Comment on above: Performed By: #### G AS5 ####[facility] (DEFAULT)[address] [place] [address], [place] [address] Cardiac echo study Procedure Ordered By: Manoj Forrest on 03-24-2024 3D EF 57 % [facility] Work Phone: Ao ASC index 1.92 cm/m2 [facility] Work Phone: Ao peak radha 1.00 m/s [facility] Work Phone: Ao SOV index 2.19 cm/m2 [facility] Work Phone: Ao STJ index 1.92 cm/m2 [facility] Work Phone: Ao VTI 22.40 cm [facility] Work Phone: Ascending aorta 2.90 [facility] Work [facility]: AV LVOT peak gradient 2 mmHg [facility] Work Phone: [facility] gradient 2 [facility]: AV peak gradient 4 mmHG [facility] Work Phone: AV valve area 2.03 cm2 [facility] Work Phone: AV Velocity Ratio 0.63 [facility] Work Phone: DEBRA (continuity Vmax) 1.98 cm2 [facility] Work Phone: DEBRA (continuity VTI) 2.03 cm2 [facility] Work Phone: DEBRA index (continuity Vmax) 1.31 m/s [facility] Work Phone: DEBRA index (continuity VTI) 1.35 cm2/m2 [facility] Work Phone: Avg e' pk radha 0.10 m/s [facility] Work Phone: Avg E/e' ratio 3.71 [facility] Work Phone: Body surface area Derived from formula 1.51 m2 [facility] Work Phone: DI (Vmax) 0.63 [facility] Work Phone: DI (VTI) 0.65 m/2 [facility] Work Phone: E wave decelartion time 524.00 msec [facility] Work Phone: e' lateral pk radha 0.1070 m/s [facility] Work Phone: e' lateral pk radha 0.11 m/s [facility] Work Phone: e' septal pk radha 0.0980 m/s [facility] Work Phone: e' septal pk radha 0.10 m/s [facility] Work Phone: E/A ratio 1.09 [facility] Work Phone: E/e' lateral [facility].55 [facility]: [facility]al [facility]: EST RAP 3.00 mmHg [facility] Work Phone: EST RVSP 16 mmHg [facility] Work Phone: FS 30 % [facility] Work Phone: IVC ostium 0.96 cm [facility] Work Phone: IVS 0.90 cm [facility] Work Phone: LA AREA 2CH 13.61 cm2 [facility] Work Phone: LA area 4CH 12.16 cm2 [facility] Work Phone: LA ESV BP (MOD) 32 mL [facility] Work Phone: LA ESV BP (MOD) index 21 mL/m2 [facility] Work Phone: LA ESV SP 2CH (MOD) 34 mL [facility] Work Phone: LA ESV SP 4CH (MOD) 28 mL [facility] Work Phone: Long Strain -20.2 % [facility] Work Phone: LV EDV 3D 68 mL [facility] Work Phone: LV ESV 3D 29 mL [facility] Work Phone: LV mass 123.30 g [facility] Work Phone: LV Mass Index 81.7 g/m2 [facility] Work Phone: LV RWT 0.42 [facility] Work Phone: LVIDD 4.30 cm [facility] Work Phone: LVIDS 3.00 cm [facility] Work Phone: LVOT area 3.14 cm2 [facility] Work Phone: LVOT diameter 2.00 cm [facility] Work Phone: LVOT peak radha 0.63 m/s [facility] Work Phone: LVOT peak VTI 14.50 cm [facility] Work Phone: LVOT stroke volume 46 cm3 [facility] Work Phone: LVOT stroke volume index 30.15 ml/m2 [facility] Work Phone: Mr max radha 4.26 m/s [facility] Work Phone: MV pk A radha 0.35 m/s [facility] Work Phone: MV pk E radha 0.38 m/s [facility] Work Phone: MV stenosis pressure 1/2 time 153.00 ms [facility] Work Phone: MV valve area p 1/2 method 1.44 cm2 [facility] Work Phone: OSU AV VTI RATIO PRE STRESS 0.65 [facility] Work Phone: OSU ECHO LV EDV 3D INDEX 45.03 mL/m2 [facility] Work Phone: OSU ECHO LV ESV 3D INDEX 19.21 mL/m2 [facility] Work Phone: OSU ECHO MR PEAK GRADIENT 72.59 mmHg [facility] Work Phone: OSU RVOT VTI RATIO 0.89 [facility] Work Phone: PV mean gradient 1 mmHg [facility] Work Phone: PV peak gradient 2 mmHg [facility] Work Phone: PV PK RADHA 0.76 m/s [facility] Work Phone: PV VTI 14.60 cm [facility] Work Phone: PW 0.90 cm [facility] Work Phone: RA vol index 4CH (MOD) 13.25 mL/m2 [facility] Work Phone: Right atrium volume 4 chamber method of disks 20 mL [facility] Work Phone: RV Area diastolic 12.92 cm2 [facility] Work Phone: RV Area systolic 7.98 cm2 [facility] Work Phone: RV basal diam 2.72 cm [facility] Work Phone: RV Fractional area change 38.2 % [facility] Work Phone: RV Free Wall Strain -27.3 % [facility] Work Phone: RV long diam 6.45 cm [facility] Work Phone: RV Long Strain -23.1 % [facility] Work Phone: RV mid diam 2.35 cm [facility] Work Phone: RV S' 10.10 cm/s [facility] Work Phone: RVOT peak gradient 1 mmHg [facility] Work Phone: RVOT peak radha 0.53 m/s [facility] Work Phone: RVOT peak VTI 13.00 cm [facility] Work Phone: Sinus 3.30 cm [facility] Work Phone: STJ 2.90 cm [facility] Work Phone: Stroke Volume 46 cm/mL [facility] Work Phone: Stroke volume index 30 [facility] Work Phone: TAPSE 1.83 cm [facility] Work Phone: TR pk grad 13 mmHg [facility] Work Phone: TR pk radha 1.77 m/s [facility] Work Phone: [facility] Work Phone: Cardiac echo study Procedure on 03-24-2024 Left Ventricle: Magali sana size is normal. Regional wall motion is normal. Ejection fraction is normal (55 - 60%). Diastolic function is normal. GLS =-20.2% Right Ventricle: Chamber size is normal. Systolic function is normal. Left Atrium: Chamber size is normal. Mitral Valve: Mild leaflet prolapse of the P2 scallop. Trace regurgitation. Trace TR. Estimated RVSP is 16 mmHg Late bubbles seen on bubble study Left Ventricle Chamber size is normal. Normal wall thickness. Regional wall motion is normal. Ejection fraction is normal (55 - 60%). Diastolic function is normal. Global longitudinal strain is -20.2%. Right Ventricle Chamber size is normal. Systolic function is normal. Estimated right ventricular systolic pressure is 16 mmHg. Global longitudinal strain is -23.1%. Free Wall Strain is -27.3%. Left Atrium Chamber size is normal. Right Atrium Chamber size is normal. IVC/SVC The inferior vena cava is normal in size. The inferior vena cava structure has a diameter <21 mm and decreases >50% during inspiration. Mitral Valve Normal appearing leaflets. Leaflet mobility is normal. Mild leaflet prolapse of the P2 scallop. Trace regurgitation. No valve stenosis. Tricuspid Valve Normal leaflets. Leaflet mobility is normal. Trace regurgitation. No stenosis. Estimated right ventricular systolic pressure is 16 mmHg. Aortic Valve Trileaflet valve. Leaflet mobility is normal. No regurgitation. No stenosis. Pulmonic Valve Trace regurgitation. No stenosis. Pericardium No pericardial effusion. Septum The atrial septum is normal. 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 Aorta No dilation to extent seen. SOV: 3.30 cm. STJ: 2.90 cm. Ascendin.90 cm. Study Details A complete echocardiography study (including color flow Doppler, spectral Doppler, M-mode, 3D, left ventricular strain, right ventricular strain and agitated saline contrast) was performed. 3D imaging performed for evaluation of left ventricle function. 3D rendering with interpretation and reporting of echocardiogram with image postprocessing under concurrent physician supervision, REQUIRING image postprocessing on an independent workstation was performed. Strain measurements performed for the evaluation of liver transplant. Imaging system used: [employer]. Indications Indications for study: pre-op. [facility] Radiology Study observation (narrative) [facility] ECHOCARDIOGRAM PHARMACOLOGIC AL STRESS TESTon 03-24-2024 ECHOCARDIOGRAM PHARMACOLOGICAL STRESS TEST Normal [facility] ABO/RH(D) TYPINGon 5 ABO/RH(D) TYPE Positive [facility] ABO/RH(D) TYPE Positive Normal [facility] Comment on above: Performed By: #### A SIMON ####[facility] (DEFAULT)[address] [place] [address] AFP TUMOR MARKERon 5 AFP Tumor Marker 4.0 ng/mL Normal <8.1 [facility] Comment on above: Result Comment: This test was performed on the Sighter Immunoassay platform by [employer] which is a two-site sandwich chemiluminescent immunoassay. It is important to note that assays using different manufacturers and/or methods may not be comparable. Performed By: #### A FPTMR ####[facility] (DEFAULT)[address] [place] [address] ALBUMINon 03-15-2024 Albumin [Mass/Vol] 3.8 g/dL 3.5 - 5.0 g/dL [facility] Albumin [Mass/Vol] 3.8 g/dL Normal 3.5-5.0 [facility] Comment on above: Performed By: #### E NZ3, ALB, CHM7, CA, BILI ####[facility] (DEFAULT)[address] [place] [address] ALCOHOL (ETHANOL),BLOODon Ethanol Ql (Bld) mg/dL NINF - 10 mg/dL [facility] Interpretation and review of laboratory results Normal [facility] Alcohol, Serum <10 Normal <10 [facility] Comment on above: Performed By: #### A LCOSU ####[facility] (DEFAULT)[address] [place] [address] ALP ALT Sugar 03-15-2024 ALP [Catalytic activity/Vol] 390 U/L High 32 - 126 U/L [facility] ALT [Catalytic activity/Vol] 77 U/L High 10 - 52 U/L [facility] AST [Catalytic activity/Vol] 115 U/L High 10 - 39 U/L [facility] ALP [Catalytic activity/Vol] 390 U/L High 32-126 [facility] Comment on above: Performed By: #### E NZ3, ALB, CHM7, CA, BILI ####[facility] (DEFAULT)[address] [place] [address] ALT [Catalytic activity/Vol] 77 U/L High 10-52 [facility] Comment on above: Performed By: #### E NZ3, ALB, CHM7, CA, BILI ####[facility] (DEFAULT)[address] [place] [address] AST [Catalytic activity/Vol] 115 U/L High 10-39 [facility] Comment on above: Performed By: #### E NZ3, ALB, CHM7, CA, BILI ####[facility] (DEFAULT)[address] [place] [address] BILIRUBIN, TOTAL AND DIRECTo n 03-15-2024 Bilirubin [Mass/Vol] 4.9 mg/dL High NINF - 1.5 mg/dL [facility] Bilirubin.direct [Mass/Vol] 2.9 mg/dL High NINF - 0.3 mg/dL [facility] Bilirubin [Mass/Vol] 4.9 mg/dL High <1.5 [facility] Comment on above: Performed By: #### E NZ3, ALB, CHM7, CA, BILI ####[facility] (DEFAULT)[address] [place] [address] Bilirubin.indirect [Mass/Vol] 2.9 mg/dL High <0.3 [facility] Comment on above: Performed By: #### E NZ3, ALB, CHM7, CA, BILI ####[facility] (DEFAULT)[address] [place] [address] CA 19-9Ordered By: Colton martinez on 03-15-2024 Cancer Ag 19-9 Qn U/mL NINF - 37. 00 U/mL [facility] Comment on above: This test was perfor med on the [employer] Immunoassay platform which is a 2-step sandwich chemiluminescent immunoassay. It is important to note that assays using different manufacturers and/or methods may not be comparable. Interpretation and review of laboratory results Normal [facility] CA 19-9on 03-15-2024 CA 19-9 <15.00 Normal <=37.00 [facility] Comment on above: Result Comment: This test was performed on the Siemens Sighter Immunoassay platform which is a 2-step sandwich chemiluminescent immunoassay. It is important to note that assays using different manufacturers and/or methods may not be comparable. Performed By: #### E PSA, CA199 ####[facility] (DEFAULT)[address] [place] [address] CALCIUMon 03-15-2024 Calcium [Mass/Vol] 9.2 mg/dL 8.6 - 10. 5 mg/dL [facility] Calcium [Mass/Vol] 9.2 mg/dL Normal 8.6-10.5 [facility] Comment on above: Performed By: #### E NZ3, ALB, CHM7, CA, BILI ####[facility] (DEFAULT)[address] [place] [address] CARBOXY THC, URINE, CONFIRMA TIONon 03-15-2024 [id number] a-THC Confirmation <5.0 Normal <5.0 [facility] Comment on above: Order Comment: This Gas Chromatography Mass Spectrometry (GC/MS) test was developed and its performance characteristics determined by the Toxicology Laboratory at [facility], it has not been cleared or approved by the FDA. The laboratory is regulated under CLIA as qualified to perform high complexity testing. This test is used for clinical purposes and should not be regarded as investigational or for research. Performed By: #### U PMSC, THCCMS ####[facility] (DEFAULT)[address] [place] [address] Cannabinoids Interpretation Not detected Normal None Detected [facility] Comment on above: Order Comment: This Gas Chromatography Mass Spectrometry (GC/MS) test was developed and its performance characteristics determined by the Toxicology Laboratory at [facility], it has not been cleared or approved by the FDA. The laboratory is regulated under CLIA as qualified to perform high complexity testing. This test is used for clinical purposes and should not be regarded as investigational or for research. Performed By: #### U PMSC, THCCMS ####[facility] (DEFAULT)[address] [place] [address] CBC AND ELECTRONIC DIFFon Basophils (Bld) [#/Vol] 0.04 10*3/uL 0.00 - 0.09 K/uL [facility] Basophils/100 WBC (Bld) 0.7 % [facility] Differential cell count method Nom (Bld) Electronic Differential [facility] Eosinophils (Bld) [#/Vol] K/uL 0.00 - 0.48 K/uL [facility] Eosinophils/100 WBC (Bld) 0.0 % [facility] Erythrocyte distribution width (RBC) [Ratio] 15.5 % High 10.9 - 14.3 % [facility] Hematocrit (Bld) [Volume fraction] 38.8 % Low 39.6 - 48.8 % [facility] Hemoglobin (Bld) [Mass/Vol] 12.6 g/dL Low 13.4 - 16.8 g/dL [facility] Immature granulocytes (Bld) [#/Vol] K/uL NINF - 0.07 K/uL [facility] Immature granulocytes/100 WBC (Bld) 0.5 % [facility] Interpretation and review of laboratory results Abnormal [facility] Lymphocytes (Bld) [#/Vol] 0.90 10*3/uL 0.83 - 3.57 K/uL [facility] Lymphocytes/100 WBC (Bld) 14.7 % [facility] MCH (RBC) [Entitic mass] 31.7 pg 26.1 - 33.3 pg [facility] MCHC (RBC) [Mass/Vol] 32.5 g/dL 31.9 - 36.5 g/dL [facility] MCV (RBC) [Entitic vol] 97.7 fL High 79.0 - 94.5 fL [facility] Monocytes (Bld) [#/Vol] 0.55 10*3/uL 0.24 - 0.93 K/uL [facility] Monocytes/100 WBC (Bld) 9.0 % [facility] Neutrophils (Bld) [#/Vol] 4.60 10*3/uL 1.57 - 6.19 K/uL [facility] Nucleated RBC/100 WBC (Bld) [Ratio] 0.0 % NINF [facility] Platelet mean volume (Bld) [Entitic vol] 12.1 fL 8.7 - 12.3 fL [facility] Platelets (Bld) [#/Vol] 281 10*3/uL 146 - 337 K/uL [facility] RBC (Bld) [#/Vol] 3.97 10*6/uL Low [facility] Segmented neutrophils/100 WBC (Bld) 75.1 % [facility] WBC (Bld) [#/Vol] 6.12 10*3/uL 3.73 - 10. 10 K/uL [facility] Abs Eos Auto < Normal 0.00-0.48 [facility] Comment on above: Performed By: #### L [id number] ####[facility] (DEFAULT)[address] [place] [address] Basophils (Bld) [#/Vol] 0.04 10*3/uL Normal 0.00-0.09 [facility] Comment on above: Performed By: #### L [id number] ####[facility] (DEFAULT)[address] [place] [address] Basophils/100 WBC (Bld) 0.7 % Normal [facility] Comment on above: Performed By: #### L [id number] ####[facility] (DEFAULT)[address] [place] [address] DIFF STATUS Electronic Differential Normal [facility] Comment on above: Performed By: #### L [id number] ####[facility] (DEFAULT)[address] [place] [address] Eosinophils/100 WBC (Bld) 0.0 % Normal [facility] Comment on above: Performed By: #### L [id number] ####[facility] (DEFAULT)[address] [place] [address] Hematocrit (Bld) [Volume fraction] 38.8 % Low 39.6-48.8 [facility] Comment on above: Performed By: #### L [id number] ####[facility] (DEFAULT)[address] [place] [address] Hemoglobin (Bld) [Mass/Vol] 12.6 g/dL Low 13.4-16.8 [facility] Comment on above: Performed By: #### L [id number] ####[facility] (DEFAULT)[address] [place] [address] Immature Grans % 0.5 % Normal [facility] Comment on above: Performed By: #### L [id number] ####[facility] (DEFAULT)[address] [place] [address] Immature Grans Absolute < Normal <=0.07 [facility] Comment on above: Performed By: #### L [id number] ####[facility] (DEFAULT)[address] [place] [address] Lymphocytes (Bld) [#/Vol] 0.90 10*3/uL Normal 0.83-3.57 [facility] Comment on above: Performed By: #### L [id number] ####[facility] (DEFAULT)[address] [place] [address] Lymphocytes/100 WBC (Bld) 14.7 % Normal [facility] Comment on above: Performed By: #### L [id number] ####[facility] (DEFAULT)[address] [place] [address] MCV (RBC) [Entitic vol] 97.7 fL High 79.0-94.5 [facility] Comment on above: Performed By: #### L [id number] ####[facility] (DEFAULT)[address] [facility] [place] [address] Mean Cell Hgb 31.7 pg Normal 26.1-33.3 [facility] Comment on above: Performed By: #### L [id number] ####U [facility] (DEFAULT)[address] [place] [address] Mean Cell Hgb Conc 32.5 g/dL Normal 31.9-36.5 [facility] Comment on above: Performed By: #### L [id number] ####[facility] (DEFAULT)[address] [facility] [place] [place] [address] Monocytes (Bld) [#/Vol] 0.55 10*3/uL Normal 0.24-0.93 [facility] Comment on above: Performed By: #### L [id number] ####[facility] (DEFAULT)[address] [facility] [place] [place] [address] Monocytes/100 WBC (Bld) 9.0 % Normal [facility] Comment on above: Performed By: #### L [id number] ####[facility] (DEFAULT)[address] [facility] [place] [address] Nucleated RBC 0.0 /100 WBC Normal <=0.2 [facility] Comment on above: Performed By: #### L [id number] ####[facility] (DEFAULT)[address] [facility] [place] [address] Platelet mean volume (Bld) [Entitic vol] 12.1 fL Normal 8.7-12.3 [facility] Comment on above: Performed By: #### L [id number] ####[facility] (DEFAULT)[address] [facility] [place] [address] Platelets (Bld) [#/Vol] 281 10*3/uL Normal 146-337 [facility] Comment on above: Performed By: #### L [id number] ####[facility] (DEFAULT)[address] [facility] [place] [address] RBC (Bld) [#/Vol] 3.97 10*6/uL Low 4.38-5.83 [facility] Comment on above: Performed By: #### L [id number] ####[facility] (DEFAULT)[address] [place] [address] RBC Distribution 15.5 % High 10.9-14.3 [facility] Comment on above: Performed By: #### L [id number] ####[facility] (DEFAULT)[address] [place] [address] Segs + Bands Auto 75.1 % Normal [facility] Comment on above: Performed By: #### L [id number] ####[facility] (DEFAULT)[address] [place] [address] Segs + Bands,Absolute Auto 4.60 K/uL Normal 1.57-6.19 [facility] Comment on above: Performed By: #### L [id number] ####[facility] (DEFAULT)[address] [place] [address] WBC (Bld) [#/Vol] 6.12 10*3/uL Normal 3.73-10.10 [facility] Comment on above: Performed By: #### L AB980 ####[facility] (DEFAULT)[address] [place] [address] CHEM 7 (LYTES,BUN,CREA,GLUC) on 03-15-2024 Anion gap [Moles/Vol] 12 mmol/L 7 - 17 mmol/L [facility] Chloride [Moles/Vol] 102 mmol/L 98 - 10 8 mmol/L [facility] CO2 [Moles/Vol] 26 mmol/L 21 - 31 mmol/L [facility] Creatinine [Mass/Vol] 0.69 mg/dL Low 0.70 - 1.30 mg/dL [facility] eGFR, CKD-EPI, Male - PINF [facility] Comment on above: Reported eGFR is bas ed on the CKD-EPI 2021 equation using creatinine, age, and sex. Glucose [Mass/Vol] 85 mg/dL Nonfastin g Glucose: 70-179 [facility] Osmolality Calc [Osmolality] 285 [facility] Potassium [Moles/Vol] 4.2 mmol/L 3.5 - 5.0 mmol/L [facility] Sodium [Moles/Vol] 136 mmol/L 135 - 145 mmol/L [facility] Urea nitrogen [Mass/Vol] 14 mg/dL 7 - 25 mg/dL [facility] Urea nitrogen/Creatinine [Mass ratio] 20 mg/mg [facility] Anion gap [Moles/Vol] 12 mmol/L Normal 7-17 [facility] Comment on above: Performed By: #### E NZ3, ALB, CHM7, CA, BILI ####[facility] (DEFAULT)[address] [place] [address] Chloride [Moles/Vol] 102 mmol/L Normal 98-108 [facility] Comment on above: Performed By: #### E NZ3, ALB, CHM7, CA, BILI ####[facility] (DEFAULT)[address] [place] [address] CO2 [Moles/Vol] 26 mmol/L Normal 21-31 [facility] Comment on above: Performed By: #### E NZ3, ALB, CHM7, CA, BILI ####[facility] (DEFAULT)[address] [place] [address] Creatinine [Mass/Vol] 0.69 mg/dL Low 0.70-1.30 [facility] Comment on above: Performed By: #### E NZ3, ALB, CHM7, CA, BILI ####[facility] (DEFAULT)[address] [place] [address] eGFR, CKD-EPI, Male > Normal >=60 [facility] Comment on above: Result Comment: Repo rted eGFR is based on the CKD-EPI 2021 equation using creatinine, age, and sex. Performed By: #### E NZ3, ALB, CHM7, CA, BILI ####[facility] (DEFAULT)[address] [facility] [place] [address] Glucose [Mass/Vol] 85 mg/dL Normal Nonfastin g Glucose: 70-179 [facility] Comment on above: Performed By: #### E NZ3, ALB, CHM7, CA, BILI ####[facility] (DEFAULT)[address] [facility] [place] [address] Osmolality [Osmolality] 285 mosm/kg Normal 278-305 [facility] Comment on above: Performed By: #### E NZ3, ALB, CHM7, CA, BILI ####[facility] (DEFAULT)[address] [place] [address] Potassium [Moles/Vol] 4.2 mmol/L Normal 3.5-5.0 [facility] Comment on above: Performed By: #### E NZ3, ALB, CHM7, CA, BILI ####[facility] (DEFAULT)[address] [facility] [place] [address] Sodium [Moles/Vol] 136 mmol/L Normal 135-145 [facility] Comment on above: Performed By: #### E NZ3, ALB, CHM7, CA, BILI ####[facility] (DEFAULT)[address] [place] [address] Urea nitrogen [Mass/Vol] 14 mg/dL Normal 7-25 [facility] Comment on above: Performed By: #### E NZ3, ALB, CHM7, CA, BILI ####[facility] (DEFAULT)[address] [place] [address], [place] [address] Urea nitrogen/Creatinine [Mass ratio] 20 mg/mg Normal [facility] Comment on above: Performed By: #### E NZ3, ALB, CHM7, CA, BILI ####[facility] (DEFAULT)[address] [place] [address] CMV IGG ABon 03-15-2024 CMV IgG Antibody Negative Normal Negative [facility] Comment on above: Performed By: #### H AABG, HBCBG, CMVG ####[facility] (DEFAULT)[address] [place] [address] EBV VCA IGG ABon 03-15-2024 EBV capsid IgG Ql (S) Positive Abnormal Negative [facility] Interpretation and review of laboratory results Abnormal [facility] EBV VCA IgG Antibody Positive Abnormal Negative [facility] Comment on above: Performed By: #### V ZISB, RUBOIB, EBVG ####[facility] (DEFAULT)[address] [place] [address] ETHANOL (ALCOHOL), URINEon 0 03-15-2024 Ethanol Ql (U) mg/dL NINF - 10 mg/dL [facility] Ethanol Ql (U) Not detected [facility] Alcohol Not detected Normal [facility] Comment on above: Performed By: #### A LCOUU ####[facility] (DEFAULT)[address] [place] [address] Alcohol, Urine <10 Normal <10 [facility] Comment on above: Performed By: #### A LCOUU ####[facility] (DEFAULT)[address] [place] [address] HEMOGLOBIN A1Con 03-15-2024 Average glucose Estimated from glycated hemoglobin (Bld) [Mass/Vol] 103 mg/dL [facility] HbA1c (Bld) [Mass fraction] 5.2 % 4.7 - 5.6 % [facility] Glucose [Mass/Vol] 103 mg/dL Normal [facility] Comment on above: Order Comment: Trans plant Coordinator should order if patient is diagnosed with Diabetes Performed By: #### A 1CB ####[facility] (DEFAULT)[address] [place] [address] Hemoglobin A1C HPLC 5.2 % Normal 4.7-5.6 [facility] Comment on above: Order Comment: Trans plant Coordinator should order if patient is diagnosed with Diabetes Performed By: #### A 1CB ####[facility] (DEFAULT)[address] [place] [address] HEPATITIS A AB, TOTAL (IGG+I GM)Ordered By: Shanell Cosme on 03-15-2024 HAV IgG+IgM Ql (S) Positive Abnormal Negative [facility] Interpretation and review of laboratory results Abnormal [facility] HEPATITIS A AB, TOTAL (IGG+I GM)on 03-15-2024 Hep A Ab, (IgG+IgM) Positive Abnormal Negative [facility] Comment on above: Performed By: #### H AABG, HBCBG, CMVG ####[facility] (DEFAULT)[address] [place] [address] HEPATITIS B CORE AB,TOTAL (I GG+IGM)on 03-15-2024 HBV core IgG+IgM Ql (S) Negative Negative [facility] Hep B Core Ab,Total (IgG+IgM) Negative Normal Negative [facility] Comment on above: Performed By: #### H AABG, HBCBG, CMVG ####[facility] (DEFAULT)[address] [place] [address] HEPATITIS B SURFACE ANTIBODY on 03-15-2024 HBV surface Ab IA Ql (S) Negative Negative [facility] Interpretation and review of laboratory results Normal [facility] Hep B Surface Ab Negative Normal Negative [facility] Comment on above: Performed By: #### H BSAG, SYPHT, HBSAB ####[facility] (DEFAULT)[address] [place] [address] HEPATITIS B SURFACE ANTIGENo n 03-15-2024 HBV surface Ag Ql (S) Negative Negative [facility] Hepatitis B Surface Ag Negative Normal Negative [facility] Comment on above: Performed By: #### H BSAG, SYPHT, HBSAB ####[facility] (DEFAULT)[address] [place] [address] HEPATITIS C ANTIBODYon 03-15 HCV Ab Ql (S) Negative Negative [facility] Hepatitis C Antibody Negative Normal Negative [facility] Comment on above: Performed By: #### H CAB ####[facility] (DEFAULT)[address] [place] [address] HIV 1 AND 2 ANTIBODIES/P24 A NTIGENon 03-15-2024 HIV 1+2 Ab+HIV1 p24 Ag IA Ql Non-Reactive Non Reactive [facility] HIV-1/HIV-2 Ab With p24 Antigen Non-Reactive Normal Non Reactive [facility] Comment on above: Performed By: #### L KGSORE33 ####[facility] (DEFAULT)[address] [place] [address] HLA TYPING (SOLID ORGAN)on 0 03-15-2024 A 24,26 [facility] Comment on above: Performed By: #### H LAB ####[facility] (DEFAULT)[address] [place] [address] B 27,60 [facility] Comment on above: Performed By: #### H LAB ####[facility] (DEFAULT)[address] [place] [address] BW 4,6 [facility] Comment on above: Performed By: #### H LAB ####[facility] (DEFAULT)[address] [place] [address] C 2,10 [facility] Comment on above: Performed By: #### H LAB ####[facility] (DEFAULT)[address] [place] [address] DPA1* 01:03 [facility] Comment on above: Performed By: #### H LAB ####[facility] (DEFAULT)[address] [facility] [place] [address] DPA11 - Normal [facility] Comment on above: Result Comment: Test ing performed by NGS (next-generation sequencing) and/or SSOP (sequence-specific oligonucleotide probe methodology). Additional testing may be performed by real-time PCR (qPCR).Some of the reagents used for testing in the Clinical HistocompatibilityLaboratory have yet to be approved by the FDA. Our certification by CLIA to perform high complexity tests allows us to use these reagents in the context of a stringent QC program, and obviates the need for FDA approval.Testing performed by the [facility] Histocompatibility Laboratory. [facility] number: [id number]. [employer] number: [id number], Director: Urban Millard, PhD, F([facility]). Performed By: #### H LAB ####[facility] (DEFAULT)[address] [place] [address], [place] [address] DPB1* DPB11 06:01 [facility] Comment on above: Performed By: #### H LAB ####[facility] (DEFAULT)[address] [place] [address] DPB1*DPB1A 04:01 [facility] Comment on above: Performed By: #### H LAB ####[facility] (DEFAULT)[address] [place] [address] DQA1* 01:03 [facility] Comment on above: Performed By: #### H LAB ####[facility] (DEFAULT)[address] [place] [address] DQA1*DQA11 03:01 [facility] Comment on above: Performed By: #### H LAB ####[facility] (DEFAULT)[address] [place] [address] DQB1 8,6 [facility] Comment on above: Performed By: #### H LAB ####[facility] (DEFAULT)[address] [place] [address], [place] [address] DQB1* 03:02 [facility] Comment on above: Performed By: #### H LAB ####[facility] (DEFAULT)[address] [place] [address] DQB1* - DQB11 06:03 [facility] Comment on above: Performed By: #### H LAB ####[facility] (DEFAULT)[address] [place] [address], [place] [address] DR 4,13 [facility] Comment on above: Performed By: #### H LAB ####[facility] (DEFAULT)[address] [place] [address], [place] [address] DR51,52,53 52,53 [facility] Comment on above: Performed By: #### H LAB ####[facility] (DEFAULT)[address] [place] [address], [place] [address] DRB1* 04:01 [facility] Comment on above: Performed By: #### H LAB ####[facility] (DEFAULT)[address] [place] [address], [place] [address] DRB1* - DRB11 13:01 [facility] Comment on above: Performed By: #### H LAB ####[facility] (DEFAULT)[address] [place] [address], [place] [address] DRB3* 02:02 [facility] Comment on above: Performed By: #### H LAB ####[facility] (DEFAULT)[address] [place] [address], [place] [address] DRB4* 01:03 [facility] Comment on above: Performed By: #### H LAB ####[facility] (DEFAULT)[address] [place] [address], [place] [address] HLA A* 24:02 [facility] Comment on above: Performed By: #### H LAB ####[facility] (DEFAULT)[address] [place] [address] HLA A* - HLAAA 26:01 [facility] Comment on above: Performed By: #### H LAB ####[facility] (DEFAULT)[address] [place] [address] HLA B* 27:05 [facility] Comment on above: Performed By: #### H LAB ####[facility] (DEFAULT)[address] [place] [address] HLA B* - HLABBB 40:01 Normal [facility] Comment on above: Performed By: #### H LAB ####[facility] (DEFAULT)[address] [place] [address] HLA C* 02:02 [facility] Comment on above: Performed By: #### H LAB ####[facility] (DEFAULT)[address] [place] [address] HLA C* - HLACC 03:04 [facility] Comment on above: Performed By: #### H LAB ####[facility] (DEFAULT)[address] [place] [address] HSV 1 AND 2 IGG ANTIBODYon 0 03-15-2024 HSV 1 IgG IA Qn (S) Negative Negative [facility] HSV 2 IgG IA Qn (S) Negative Negative [facility] Interpretation and review of laboratory results Normal [facility] HSV 1 IgG Antibody Negative Normal Negative [facility] Comment on above: Performed By: #### H SVG12 ####[facility] (DEFAULT)[address] [place] [address] HSV 2 IgG Antibody Negative Normal Negative [facility] Comment on above: Performed By: #### H SVG12 ####[facility] (DEFAULT)[address] [place] [address] [address] 03-15-2024 M. TB Mitogen-Nil 3.49 IU/mL Normal [facility] Comment on above: Order Comment: The M . Tuberculosis antigen levels cannot be correlated to stage or degree of infection, response to therapy or likelihood for progression to active disease. Results from QuantiFERON TB Gold Plus must be used in conjunction with individual epidemiological history, current medical status, and results of other diagnostic evaluation. Performed By: #### Q FTB ####[facility] (DEFAULT)[address] [place] [address] M. TB Nil 0.01 IU/mL Normal [facility] Comment on above: Order Comment: The M . Tuberculosis antigen levels cannot be correlated to stage or degree of infection, response to therapy or likelihood for progression to active disease. Results from QuantiFERON TB Gold Plus must be used in conjunction with individual epidemiological history, current medical status, and results of other diagnostic evaluation. Performed By: #### Q FTB ####[facility] (DEFAULT)[address] [address] M. TB TB1-Nil 0.00 IU/mL Normal [facility] Comment on above: Order Comment: The M . Tuberculosis antigen levels cannot be correlated to stage or degree of infection, response to therapy or likelihood for progression to active disease. Results from QuantiFERON TB Gold Plus must be used in conjunction with individual epidemiological history, current medical status, and results of other diagnostic evaluation. Performed By: #### Q FTB ####[facility] (DEFAULT)[address] [place] [address] M. TB TB2-Nil 0.00 IU/mL Normal [facility] Comment on above: Order Comment: The M . Tuberculosis antigen levels cannot be correlated to stage or degree of infection, response to therapy or likelihood for progression to active disease. Results from QuantiFERON TB Gold Plus must be used in conjunction with individual epidemiological history, current medical status, and results of other diagnostic evaluation. Performed By: #### Q FTB ####[facility] (DEFAULT)[address] [place] [address] M. Tuberculosis by Quantiferon in tube Negative Normal Negative [facility] Comment on above: Order Comment: The M . Tuberculosis antigen levels cannot be correlated to stage or degree of infection, response to therapy or likelihood for progression to active disease. Results from QuantiFERON TB Gold Plus must be used in conjunction with individual epidemiological history, current medical status, and results of other diagnostic evaluation. Performed By: #### Q FTB ####[facility] (DEFAULT)[address] [place] [address] No Panel Informationon 03-15 [facility] Interpretation and review of laboratory results Normal [facility] Interpretation and review of laboratory results Normal [facility] Interpretation and review of laboratory results Abnormal [facility] Interpretation and review of laboratory results Normal [facility] PHOSPHATIDYLETHANOL (PETH), WHOLE BLOOD QUANTITATIVEon 03-15-2024 PEth 16:0/18:1 (POPEth) <10 Normal Cutoff: 10 [facility] Comment on above: Result Comment: Phos phatidylethanol (PEth) homologues result interpretationPEth 16:0/18:1 (POPEth)Less than 10 ng/mL: Not fryqhicv09 - 19 ng/mL: Abstinence or light alcohol consumption(<2 drinks per day for several days a week)20 - 200 ng/mL: Moderate alcohol consumption(up to 4 drinks per day for several days a week)Greater than 200 ng/mL: Heavy alcohol consumption orchronic alcohol use (at least 4 drinks per day several daysa week)(Reference: Dalia Franklin and Joey Daniel 2018 J. Forensic Sci) Performed By: #### L ABXPETH ####[facility] (DEFAULT)[address] [address] PEth 16:0/18:2 (PLPEth) <10 Normal Cutoff: 10 [facility] Comment on above: Result Comment: PEth 16:0/18:2 (PLPEth)Reference ranges are not well established Performed By: #### L ABXPETH ####[facility] (DEFAULT)[address] [place] [address] PHOSPHATIDYLETHANOL (PETH), WHOLE BLOOD QUANTITATIVE Negative Normal [facility] Comment on above: Result Comment: ---- ADDITIONAL INFORMATION This report is intended for use in clinical monitoring andmanagement of patients. It is not intended for use inemployment-related testing.This test was developed and its performance characteristicsdetermined by [facility] in a manner consistent with CLIArequirements. This test has not been cleared or approved bythe U.S. Food and Drug Administration.Test Performed by:[facility] [place], [place] [id number] Director: Orlando Cruz Ph.D.; CLIA# [id number] Performed By: #### L ABXPETH ####[facility] (DEFAULT)[address] [place] [address]24 PSA, SCREENINGon 03-15-2024 Interpretation and review of laboratory results Normal [facility] Prostate specific Ag [Mass/Vol] 0.48 ng/mL NINF - 4.00 ng/mL [facility] Comment on above: This test was perfor med on the [employer] Immunoassay platform which is a 2-step sandwich chemiluminescent immunoassay. It is important to note that assays using different manufacturers and/or methods may not be comparable. [facility] PT,INR,PTTon 03-15-2024 aPTT Coag (PPP) [Time] 32.5 s [facility] INR Coag (Bld) [Relative time] 1.5 {INR} High 0.9 - 1.1 [facility] Interpretation and review of laboratory results Abnormal [facility] PT Coag (PPP) [Time] 18.5 s High [facility] aPTT Coag (Bld) [Time] 32.5 s Normal 24.0-34.3 [facility] Comment on above: Performed By: #### P TPTT ####[facility] (DEFAULT)[address] [place] [address] INR Coag (PPP) [Relative time] 1.5 {INR} High 0.9-1.1 [facility] Comment on above: Performed By: #### P TPTT ####[facility] (DEFAULT)[address] [facility] [place] [address] PT Coag (PPP) [Time] 18.5 s High 11.9-14.2 [facility] Comment on above: Performed By: #### P TPTT ####[facility] (DEFAULT)[address] [place] [address], [place] [address] RUBEOLA IGG AB (IMMUNE STATU S)on 03-15-2024 MeV IgG IA Qn (S) 8.0 {index_val} [facility] Comment on above: THIS IS A QUALITATIV E ASSAY. The numeric value is not necessarily indicative of the amount of anti-Measles, Mumps, Rubella, or VZV IgG antibody present. Results should be interpreted in conjunction with clinical and epidemological data. MeV IgG Ql (S) Positive Positive [facility] Comment on above: A positive result in dicates either prior exposure to the virus or response to vaccination. The presence of Rubeola IgG suggests immunity against rubeola. A positive result indicates immunity through past immunization or prior infection. Measles Rubeola Immune Status Ab Positive Normal Positive [facility] Comment on above: Result Comment: A po sitive result indicates either prior exposure to the virus or response to vaccination. The presence of Rubeola IgG suggests immunity against rubeola.A positive result indicates immunity through past immunization or prior infection. Performed By: #### V ZISB, RUBOIB, EBVG ####[facility] (DEFAULT)[address] [place] [address] Measles Rubeola Immune Status IgG Index 8.0 Normal [facility] Comment on above: Result Comment: THIS IS A QUALITATIVE ASSAY. The numeric value is not necessarily indicative of the amount of anti-Measles, Mumps, Rubella, or VZV IgG antibody present. Results should be interpreted in conjunction with clinical and epidemological data. Performed By: #### V ZISB, RUBOIB, EBVG ####[facility] [facility] (DEFAULT)[address] [place] [address] SYPHILIS AB W/REFLEX RPRon 0 03-15-2024 Syphilis IgG/IGM Total Non-Reactive Normal Non Reactive [facility] Comment on above: Performed By: #### H BSAG, SYPHT, HBSAB ####[facility] (DEFAULT)[address] [place] [address] 53719 T. pallidum Ab Ql (S)on 03-02 T. pallidum IgG Ql (S) Non-Reactive Non Reactive [facility] TYPE AND SCREENon 03-15-2024 ABO/RH(D) TYPE Positive [facility] Outdate Specimen 03/18/2024 23:59 OS [facility] ABO/RH(D) TYPE Positive Normal [facility] Comment on above: Performed By: #### X M ####[facility] (DEFAULT)[address] [place] [address] Outdate Specimen 03/18/2024 23:59 Normal [facility] Comment on above: Performed By: #### X M ####[facility] (DEFAULT)[address] [place] [address]4320 URINE DRUG SCREEN 10 WITH CO NFIRMATIONOrdered By: Fanny Walters on 03-15-2024 Amphetamine+Methamphe tamine Screen (U) [Mass/Vol] Not detected Cutoff: 500 ng/mL [facility] Barbiturates Ql (U) Not detected Cutoff: 200 ng/mL [facility] Benzodiazepines Ql (U) Not detected Cutoff: 200 ng/mL [facility] Buprenorphine Ql (U) Not detected Cutoff: 5 ng/mL [facility] Cannabinoids Screen Ql (U) Not detected Cutoff: 50 ng/mL [facility] Cocaine Ql (U) Not detected Cutoff: 150 ng/mL [facility] Creatinine (U) [Mass/Vol] 81.8 mg/dL 20.0 - PINF mg/dL [facility] fentaNYL Ql (U) Not detected Cutoff: 1 ng/mL [facility] Interpretation and review of laboratory results Normal [facility] Methadone Ql (U) Not detected Cutoff: 300 ng/mL [facility] Opiates Ql (U) Not detected Cutoff: 300 ng/mL [facility] oxyCODONE Ql (U) Not detected Cutoff: 100 ng/mL [facility] URINE DRUG SCREEN 10 WITH CO NFIRMATIONon 03-15-2024 Amphetamine/Methamphe tamine Not detected Normal Cutoff: 500 ng/mL [facility] Comment on above: Performed By: #### U PMSC, THCCMS ####[facility] (DEFAULT)[address] [place] [address] Barbiturates Not detected Normal Cutoff: 200 ng/mL [facility] Comment on above: Performed By: #### U PMSC, THCCMS ####[facility] (DEFAULT)[address] [place] [address] Benzodiazepines Not detected Normal Cutoff: 200 ng/mL [facility] Comment on above: Performed By: #### U PMSC, THCCMS ####[facility] (DEFAULT)[address] [place] [address] Buprenorphine Not detected Normal Cutoff: 5 ng/mL [facility] Comment on above: Performed By: #### U PMSC, THCCMS ####[facility] (DEFAULT)[address] [place] [address] Cannabinoids Screen Ql (U) Not detected Normal Cutoff: 50 ng/mL [facility] Comment on above: Performed By: #### U PMSC, THCCMS ####[facility] (DEFAULT)[address] [place] [address] Cocaine Not detected Normal Cutoff: 150 ng/mL [facility] Comment on above: Performed By: #### U PMSC, THCCMS ####[facility] (DEFAULT)[address] [place] [address], [place] [address] Creatinine,Urine 81.8 mg/dL Normal >=20.0 [facility] Comment on above: Performed By: #### U PMSC, THCCMS ####[facility] (DEFAULT)[address] [place] [address], [place] [address] Fentanyl Not detected Normal Cutoff: 1 ng/mL [facility] Comment on above: Performed By: #### U PMSC, THCCMS ####[facility] (DEFAULT)[address] [place] [address], [place] [address] Methadone Not detected Normal Cutoff: 300 ng/mL [facility] Comment on above: Performed By: #### U PMSC, THCCMS ####[facility] (DEFAULT)[address] [place] [address] Opiates Not detected Normal Cutoff: 300 ng/mL [facility] Comment on above: Performed By: #### U PMSC, THCCMS ####[facility] (DEFAULT)[address] [place] [address] Oxycodone Not detected Normal Cutoff: 100 ng/mL [facility] Comment on above: Performed By: #### U PMSC, THCCMS ####[facility] (DEFAULT)[address] [place] [address] 13389 VARICELLA IGG AB (IMM STATUS )on 03-15-2024 VZV IgG Ql (S) Positive Positive [facility] Comment on above: Prior exposure to th e varicella zoster virus may cause measurable varicella zoster IgG antibody. A positive result indicates immunity through past immunization or prior infection. VZV IgG Qn (S) 5.4 [facility] Comment on above: THIS IS A QUALITATIV E ASSAY. The numeric value is not necessarily indicative of the amount of anti-Measles, Mumps, Rubella, or VZV IgG antibody present. Results should be interpreted in conjunction with clinical and epidemological data. Varicella Immune Status IgG Antibody Positive Normal Positive [facility] Comment on above: Result Comment: Prio r exposure to the varicella zoster virus may cause measurable varicella zoster IgG antibody.A positive result indicates immunity through past immunization or prior infection. Performed By: #### V NITA TRANB, EBVG ####[facility] (DEFAULT)[address] [place] [address] Varicella Immune Status IgG Index 5.4 Normal [facility] Comment on above: Result Comment: THIS IS A QUALITATIVE ASSAY. The numeric value is not necessarily indicative of the amount of anti-Measles, Mumps, Rubella, or VZV IgG antibody present. Results should be interpreted in conjunction with clinical and epidemological data. Performed By: #### V KEVSNITA WardB, EBVG ####[facility] (DEFAULT)[address] [place] [address] XR CHEST PA AND LATERAL 2 EWSon 03-15-2024 XR CHEST PA AND LATERAL 2 VIEWS Normal [facility] XR Chest PA and Lateralon IMPRESSION: No acute cardiopulmonary disease OLOGY EXAM: XR CHEST PA AN D LATERAL 2 VIEWS, 03/15/2024 12:33 PM COMPARISON: No prior studies available for comparison. CLINICAL INDICATIONS: Pre Liver Transplant RELEVANT CLINICAL HISTORY: K83.01:Primary sclerosing cholangitis Z01.818:Pre-transplant evaluation for liver transplant Z01.818:Preoperative evaluation to rule out surgical contraindication Pre Liver Transplant Evaluation; FINDINGS: (Adequate technique) Implanted Devices: None Lungs: Clear, without mass, interstitial disease, or consolidation. Pleural Spaces: No pleural effusion. No pneumothorax. Mediastinum and Terri: Normal Cardiac silhouette and great vessels: Normal heart size. Unremarkable aorta. Chest Wall: Normal RADIOLOGY Keturah Lemons MD - 03/15/2024 EXAM: XR CHEST PA AND LATERAL 2 VIEWS, 03/15/2024 12:33 PM COMPARISON: No prior studies available for comparison. CLINICAL INDICATIONS: Pre Liver Transplant RELEVANT CLINICAL HISTORY: K83.01:Primary sclerosing cholangitis Z01.818:Pre-transplant evaluation for liver transplant Z01.818:Preoperative evaluation to rule out surgical contraindication Pre Liver Transplant Evaluation; FINDINGS: (Adequate technique) Implanted Devices: None Lungs: Clear, without mass, interstitial disease, or consolidation. Pleural Spaces: No pleural effusion. No pneumothorax. Mediastinum and Terri: Normal Cardiac silhouette and great vessels: Normal heart size. Unremarkable aorta. Chest Wall: Normal IMPRESSION IMPRESSION: No acute cardiopulmonary disease [facility] Radiology Study observation (narrative) [facility] XR Chest PA and LateralOrder ed By: Keturah Lemons on 03-15-2024 [facility] Work Phone: DNA EXTRACTION, TISSUEOrdere d By: Maxwell Villalobos on 02-26-2024 [facility] CYTOLOGY, NON-GYNon 02-25-20 24 CYTOLOGIC DIAGNOSIS Normal [facility] Comment on above: Result Comment: Laurie DIETRICH HEPATIC DUCT BRUSHING (CYTOLOGY):FINAL DIAGNOSIS:Atypical cell presentNote: ThinPrep is moderately cellular and shows a few clusters of atypical cells with large nuclei. However, there is no nuclear membrane irregularity, irregular chromatin distribution, nuclear size variation, or loss of architecture. The case was also reviewed by Dr. Leal (cytopathologist), who agrees with the diagnostic interpretation. Performed By: #### N ONGNNONFNA ####[facility] (DEFAULT)[address] [place] [address] Case Report Normal [facility] Comment on above: Result Comment: [facility] Cytology Report Case: [id number] Provider: Nan Farrar MD, Collected: 02/25/2024 10:16 AM MPHOrdering Location: [facility] Received: 02/25/2024 11:44 AMPathologist: MalachiMAGDY Truongpecimen: COMMON HEPATIC DUCT BRUSHING, CHD Brushing Performed By: #### N ONGNNONFNA ####[facility] (DEFAULT)[address] [place] [address] Gross Description Normal [facility] Comment on above: Result Comment: Comm on Hepatic Duct Snisqadq17 ml cloudy red fluid unfixed with brush1 TP slide PAP stain Performed By: #### N ONGNNONFNA ####[facility] (DEFAULT)[address] [place] [address] Professional Interpretation Performed at: Normal [facility] Comment on above: Result Comment: For Immediate Release to Patient's MyChart? [facility] [id number] [place] [id number] Performed By: #### N ONGNNONFNA ####[facility] (DEFAULT)[address] [place] [address] 04229 ERCPon 02-25-[address] [facility] Gastroenterology Patient Name: Jc Dunaway Procedure Date: 02/25/2024 7:51 AM Date of : 1965 Admit Type: Outpatient Age: 58 Room: ERCP [place] [address] Gender: Male Note Status: Finalized Attending MD: Nan Farrar MD, MPH, [id number] Procedure: ERCP Indications: Bile duct stricture, Primary sclerosing cholangitis Providers: Nan Farrar MD, MPH (Doctor), Glenn Ignacio MD (Fellow), Stepan Banerjee RN (Nurse), Genna Muñoz, RN (Nurse), Leeroy Oropeza APRN-REGGIE (Anesthesia Staff) Patient Profile: This is a 58 year old male. Patient with PSC/UC with concern for dominant biliary stricture with worsening LFTs presenting for biliary decompression and assessment for underlying cholangiocarcinoma. Last imaging with MRCP (01/24/2024) showed prominent biliary ductal dilation at the left hepatic lobe, narrowing of the bile ducts at the portal hepatis, multiple other areas of stricturing and narrowing in the intrahepatics, GB stone, no enhancing mass. Patient had an ERCP in 12/2023 that showed a single severe hepatic duct bifrucation stricture with negative brushing for malignancy. CA 19-9 in 12/2023 was normal. Referring MD: Babs Marley MD (Referring MD), Olive Valera MD (Referring MD) Medicines: General Anesthesia, Cipro 400 mg IV, Indomethacin 100 mg PA, 1L Ringer Lactate Complications: No immediate complications. Procedure: Pre-Anesthesia Assessment: - Prior to the procedure, a History and Physical was performed, and patient medications and allergies were reviewed. The risks and benefits of the procedure and the sedation options and risks were discussed with the patient. All questions were answered and informed consent was obtained. Patient identification and proposed procedure were verified by the physician, the nurse and the anesthesiologist in the pre-procedure area in the procedure room. Mental Status Examination: alert and oriented. Airway Examination: normal oropharyngeal airway and neck mobility. Respiratory Examination: clear to auscultation. CV Examination: normal. Prophylactic Antibiotics: The patient does not require prophylactic antibiotics. Prior Anticoagulants: The patient has taken no anticoagulant or antiplatelet agents. ASA Grade Assessment: III - A patient with severe systemic disease. After reviewing the risks and benefits, the patient was deemed in satisfactory condition to undergo the procedure. The anesthesia plan was to use general anesthesia. Immediately prior to administration of medications, the patient was re-assessed for adequacy to receive sedatives. The physical status of the patient was re-assessed after the procedure. After obtaining informed consent, the scope was passed under direct vision. Throughout the procedure, the patient's blood pressure, pulse, and oxygen saturations were monitored continuously. The [id number] was introduced through the mouth, and used to inject contrast into and used to inject contrast into the bile duct. The ERCP was accomplished without difficulty. The patient tolerated the procedure well. Findings: The temporary office assistant film was normal. The esophagus was successfully intubated under direct vision. The scope was advanced from the mouth to the duodenum. The pharynx, larynx and associated structures, as well as the upper GI tract, were normal. The papilla was slightly inverted. A biliary sphincterotomy had been performed. The sphincterotomy appeared open. A 0.025 inch x 270 cm angled Visiglide wire was passed into the biliary tree. The jerry (more content not included)... LAB, [facility] Radiology Study observation (narrative) [facility] TUMOR HOTSPOT MUTATION PANEL , ACCESSIONINGOrdered By: Thad Johnson on 02-25-2024 AP BLOCK/SLIDE ID [id number] [facility] AP SLIDE SCANNED [facility] APCP HISTOLOGY COMMENTS [facility] TUMOR HOTSPOT MUTATION PANEL , REQUESTOrdered By: Salty Suarez on 02-25-2024 Sample tested [id number] [facility] Work Phone: Sendout Result Processed on brushin g received at molecular lab [facility] Work Phone: Tissue tested Brushing common hepa tic duct [facility] Work Phone: Tumor type GI and Liver [facility] Work Phone: [facility] Work Phone: TUMOR HOTSPOT MUTATION PANEL , REQUESTon 02-25-2024 Sample tested [id number] Normal [facility] Comment on above: Performed By: #### L [id number] ####[facility] (DEFAULT)[address] [place] [address] 25090 Sendout Result Processed on brushin g received at molecular lab Normal [facility] Comment on above: Performed By: #### L [id number] ####[facility] (DEFAULT)[address] [place] [address] Tissue tested Brushing common hepa tic duct Normal [facility] Comment on above: Performed By: #### L [id number] ####[facility] (DEFAULT)[address] [place] [address] 15685 Tumor type GI and Liver Normal [facility] Comment on above: Performed By: #### L [id number] ####[facility] (DEFAULT)[address] [place] [address] 26307 Oncology Visit Reporton 01-30 Oncology Visit Report Normal [facility] Absolute neutrophil countOrd ered By: Robe Bosesuhas on 02-11-2024 Neutrophils (Bld) [#/Vol] 4.8 10*3/uL 2.0-7.7 [facility] Albumin to globulin ratioOrd ered By: [facility] on 02-11-2024 Albumin/Globulin [Mass ratio] 0.7 {ratio} Low 0.9-2.4 [facility] Automated lymphocyte count a s percentage of total leukocytesOrdered By: Dashawnabdi Zavala on 02-11-2024 Lymphocytes/100 WBC Auto (Unsp spec) 15.9 % Low 19-41 [facility] Basophil percentageOrdered B y: Robe Herman on 02-11-2024 Basophils/100 WBC (Bld) 0.9 % 0-1 [facility] Bilirubin, totalOrdered By: [facility] Zavala on 02-11-2024 Bilirubin [Mass/Vol] 4.50 mg/dL High 0.20-1.00 [facility] Comment on above: For patients on eltr ombopag therapy, use of Dimension [place] TBIL is not recommended. Blood urea nitrogen (BUN)/cr eatinine ratioOrdered By: [facility] Zavala on 02-11-2024 Urea nitrogen/Creatinine [Mass ratio] 13.4 mg/mg 10-20 [facility] CBC W/Diff, Automatedon 01-30 Absolute Lymph 1.01 X10 3/uL Normal 0.83-4.51 [facility] Comment on above: Performed By: #### L 503.6030, L100.0100, L500.4050, L503.6550 ####[facility] [address] [place], [address] Absolute Neut 4.8 X10 3/uL Normal 2.0-7.7 [facility] Comment on above: Performed By: #### L 503.6030, L100.0100, L500.4050, L503.6550 ####[facility] [address] [place], [address] Basophils/100 WBC (Bld) 0.9 % Normal 0-1 [facility] Comment on above: Performed By: #### L 503.6030, L100.0100, L500.4050, L503.6550 ####[facility] [address] [place], [address] Eosinophils/100 WBC (Bld) 0.0 % Normal 0-5 [facility] Comment on above: Performed By: #### L 503.6030, L100.0100, L500.4050, L503.6550 ####[facility] [address] [place], [address] Erythrocyte distribution width (RBC) [Ratio] 15.9 % High 11.6-14.6 [facility] Comment on above: Performed By: #### L 503.6030, L100.0100, L500.4050, L503.6550 ####[facility] [address] [place], [address] Hematocrit (Bld) [Volume fraction] 36.3 % Low 40-54 [facility] Comment on above: Performed By: #### L 503.6030, L100.0100, L500.4050, L503.6550 ####[facility] [address] [place], [address] Hemoglobin (Bld) [Mass/Vol] 12.2 g/dL Low 13.0-16.5 [facility] Comment on above: Performed By: #### L 503.6030, L100.0100, L500.4050, L503.6550 ####[facility] [address] [place], [address] IG% 0.500 Normal 0.0-0.9 [facility] Comment on above: Result Comment: IG% - Immature Granulocytes (promyelocytes, myelocytes andmetamyelocytes) > 1% indicates that a LEFT SHIFT is Present. Performed By: #### L 503.6030, L100.0100, L500.4050, L503.6550 ####[facility] [address] [place], [address] Lymphocytes/100 WBC (Bld) 15.9 % Low 19-41 [facility] Comment on above: Performed By: #### L 503.6030, L100.0100, L500.4050, L503.6550 ####[facility] [address] [place], [address] MCH (RBC) [Entitic mass] 32.7 pg High 27.0-32.0 [facility] Comment on above: Performed By: #### L 503.6030, L100.0100, L500.4050, L503.6550 ####[facility] [address] [place], [address] MCHC (RBC) [Mass/Vol] 33.6 g/dL Normal 32-36 [facility] Comment on above: Performed By: #### L 503.6030, L100.0100, L500.4050, L503.6550 ####[facility] [address] [place], [address] MCV (RBC) [Entitic vol] 97.3 fL High 80-94 [facility] Comment on above: Performed By: #### L 503.6030, L100.0100, L500.4050, L503.6550 ####[facility] [address] [place], [address] Monocytes/100 WBC (Bld) 8.0 % Normal 0-10 [facility] Comment on above: Performed By: #### L 503.6030, L100.0100, L500.4050, L503.6550 ####[facility] [address] [place], [address] Neutrophils/100 WBC (Bld) 74.7 % High 47-70 [facility] Comment on above: Performed By: #### L 503.6030, L100.0100, L500.4050, L503.6550 ####[facility] [address] [place], [address] Nucleated RBC (Bld) [#/Vol] 0 10*3/uL Normal 0-5 [facility] Comment on above: Performed By: #### L 503.6030, L100.0100, L500.4050, L503.6550 ####[facility] [address] [place], [address] Platelet mean volume (Bld) [Entitic vol] 10.8 fL Normal 6.2-12.0 [facility] Comment on above: Performed By: #### L 503.6030, L100.0100, L500.4050, L503.6550 ####[facility] [address] [place], [address] Platelets (Bld) [#/Vol] 302 10*3/uL Normal 150-450 [facility] Comment on above: Performed By: #### L 503.6030, L100.0100, L500.4050, L503.6550 ####[facility] [address] [place], [address] RBC (Bld) [#/Vol] 3.73 10*6/uL Low 4.6-6.2 [facility] Comment on above: Performed By: #### L 503.6030, L100.0100, L500.4050, L503.6550 ####[facility] [address] [place], [address] RDW SD 56.7 fl High 35.1-43.9 [facility] Comment on above: Performed By: #### L 503.6030, L100.0100, L500.4050, L503.6550 ####[facility] [address] [place], [address] WBC (Bld) [#/Vol] 6.4 10*3/uL Normal 4.4-11.0 [facility] Comment on above: Performed By: #### L 503.6030, L100.0100, L500.4050, L503.6550 ####[facility] [address] [place], [address] Carbon dioxide measurementOr dered By: [facility] Z[facility]ala on 02-11-2024 CO2 [Moles/Vol] 24.0 mmol/L 21.0-32.0 [facility] Chloride measurementOrdered By: [facility] Zavala on 02-11-2024 Chloride [Moles/Vol] 105 mmol/L 98-107 [facility] Comprehensive Metabolic Prof ilon 02-11-2024 Albumin [Mass/Vol] 2.8 g/dL Low 3.2-5.0 [facility] Comment on above: Performed By: #### L 503.6030, L100.0100, L500.4050, L503.6550 ####[facility] [address] [place], [address] Albumin/Globulin [Mass ratio] 0.7 {ratio} Low 0.9-2.4 [facility] Comment on above: Performed By: #### L 503.6030, L100.0100, L500.4050, L503.6550 ####[facility] [address] [place], [address] ALK P 454 U/L High 45-117 [facility] Comment on above: Performed By: #### L 503.6030, L100.0100, L500.4050, L503.6550 ####[facility] [address] [place], [address] ALT [Catalytic activity/Vol] 100 U/L High 16-61 [facility] Comment on above: Performed By: #### L 503.6030, L100.0100, L500.4050, L503.6550 ####[facility] [address] [place], [address] AST [Catalytic activity/Vol] 136 U/L High 15-37 [facility] Comment on above: Performed By: #### L 503.6030, L100.0100, L500.4050, L503.6550 ####[facility] [address] [place], [address] Bilirubin [Mass/Vol] 4.50 mg/dL High 0.20-1.00 [facility] Comment on above: Result Comment: For patients on eltrombopag therapy, use of Dimension [place] TBIL is not recommended. Performed By: #### L 503.6030, L100.0100, L500.4050, L503.6550 ####[facility] [address] [place], [address] BUN/CRE 13.4 RATIO Normal 10-20 [facility] Comment on above: Performed By: #### L 503.6030, L100.0100, L500.4050, L503.6550 ####[facility] [address] [place], [address] CA,Total 8.9 mg/dL Normal 8.5-10.1 [facility] Comment on above: Performed By: #### L 503.6030, L100.0100, L500.4050, L503.6550 ####[facility] [address] [place], [address] Chloride [Moles/Vol] 105 mmol/L Normal 98-107 [facility] Comment on above: Performed By: #### L 503.6030, L100.0100, L500.4050, L503.6550 ####[facility] [address] [place], [address] CO2 [Moles/Vol] 24.0 mmol/L Normal 21.0-32.0 [facility] Comment on above: Performed By: #### L 503.6030, L100.0100, L500.4050, L503.6550 ####[facility] [address] [place], [address] Creatinine [Mass/Vol] 0.75 mg/dL Normal 0.70-1.30 [facility] Comment on above: Result Comment: The validity of the calculated GFR GFRAA in patients over70 years has not been determined. Clinical correlation isessential. Performed By: #### L 503.6030, L100.0100, L500.4050, L503.6550 ####[facility] [address] [place], [address] ECRCL 69.48 ml/min Normal [facility] Comment on above: Performed By: #### L 503.6030, L100.0100, L500.4050, L503.6550 ####[facility] [address] [place], [address] EST GFR - AA 137 mL/min Normal >60 [facility] Comment on above: Result Comment: Afri can Indonesian GFR Calc Performed By: #### L 503.6030, L100.0100, L500.4050, L503.6550 ####[facility] [address] [place], [address] GAP 8 Normal 5-15 [facility] Comment on above: Performed By: #### L 503.6030, L100.0100, L500.4050, L503.6550 ####[facility] [address] [place], [address] GFR/1.73 sq M.predicted among non-blacks MDRD (S/P/Bld) [Vol rate/Area] 114 mL/min/{1.73_m2} Normal >60 [facility] Comment on above: Result Comment: Non- GFR Calc Performed By: #### L 503.6030, L100.0100, L500.4050, L503.6550 ####[facility] [address] [place], [address] Globulin (S) [Mass/Vol] 4.3 g/dL High 2.2-4.2 [facility] Comment on above: Performed By: #### L 503.6030, L100.0100, L500.4050, L503.6550 ####[facility] [address] [place], [address] Glucose [Mass/Vol] 182 mg/dL High 74-106 [facility] Comment on above: Result Comment: Fast ing Glucose result greater than or equal to 126 mg/dLsuggests DIABETES MELLITUS per A.D.A. criteria. Performed By: #### L 503.6030, L100.0100, L500.4050, L503.6550 ####[facility] [address] [place], [address] Potassium [Moles/Vol] 3.7 mmol/L Normal 3.5-5.1 [facility] Comment on above: Performed By: #### L 503.6030, L100.0100, L500.4050, L503.6550 ####[facility] [address] [place], [address] Sodium [Moles/Vol] 137 mmol/L Normal 136-145 [facility] Comment on above: Performed By: #### L 503.6030, L100.0100, L500.4050, L503.6550 ####[facility] [address] [place], [address] T PROT 7.1 g/dL Normal 6.4-8.2 [facility] Comment on above: Performed By: #### L 503.6030, L100.0100, L500.4050, L503.6550 ####[facility] [address] [place], [place], [id number] Urea nitrogen [Mass/Vol] 10 mg/dL Normal 7-18 [facility] Comment on above: Performed By: #### L 503.6030, L100.0100, L500.4050, L503.6550 ####[facility] [address] [place], [place], [id number] Eosinophil percentageOrdered By: Robe Zavala on 02-11-2024 Eosinophils/100 WBC (Bld) 0.0 % 0-5 [facility] Erythrocyte distribution wid th ratioOrdered By: [facility] on 02-11-2024 Erythrocyte distribution width (RBC) [Ratio] 15.9 % High 11.6-14.6 [facility] Erythrocyte distribution wid th standard deviationOrdered By: [facility] on 02-11-2024 Erythrocyte distribution width (RBC) [Entitic vol] 56.7 fL High 35.1-43.9 [facility] Estimated glomerular filtrat ion rate (GFR) AmericanOrdered By: Robe Zavala on 02-11-2024 Estimated GFR (MDRD) Amer 137 mL/min >60 [facility] Comment on above: GFR Calc Estimation of creatinine daniel aranceOrdered By: Robe Zavala on 02-11-2024 Estimated Creatinine Clearance Calc 69.48 ml/min [facility] Ferritinon 02-11-2024 Ferritin [Mass/Vol] 92 ng/mL Normal 26-388 [facility] Comment on above: Performed By: #### L 503.6030, L100.0100, L500.4050, L503.6550 ####[facility] [address] [place], [place], [id number] Ferritin measurementOrdered By: Robe Zavala on 02-11-2024 Ferritin [Mass/Vol] 92 ng/mL 26-388 [facility] Glomerular filtration rate ( GFR) estimationOrdered By: Robe Zavala on 02-11-2024 Estimated GFR (MDRD) Non-Af Amer 114 mL/min >60 [facility] Comment on above: Non- GFR Calc Glucose measurementOrdered B y: Robe Herman on 02-11-2024 Glucose [Mass/Vol] 182 mg/dL High 74-106 [facility] Comment on above: Fasting Glucose resu lt greater than or equal to 126 mg/dL suggests DIABETES MELLITUS per A.D.A. criteria. Hematocrit Auto (Bld) [Volum e fraction]Ordered By: Robe Zavala on 02-11-2024 Hematocrit (Bld) [Volume fraction] 36.3 % Low 40-54 [facility] Hemoglobin measurementOrdere d By: Robe Zavala on 02-11-2024 Hemoglobin (Bld) [Mass/Vol] 12.2 g/dL Low 13.0-16.5 [facility] Immature granulocytes/100 WB C Auto (Bld)Ordered By: Robe Zavala on 02-11-2024 Immature granulocytes/100 WBC (Bld) 0.500 % 0.0-0.9 [facility] Comment on above: IG% - Immature Granu locytes (promyelocytes, myelocytes and metamyelocytes) > 1% indicates that a LEFT SHIFT is Present. Iron (Unsp spec) [Mass/Mass] Ordered By: Robe Zavala on 02-11-2024 Iron [Mass/Vol] 81 ug/dL 65-175 [facility] Iron measurement (mass/mass) Ordered By: [facility] on 02-11-2024 Iron (Unsp spec) [Mass/Mass] 81 ug/dL 65-175 [facility] Iron saturation [Mass fracti on]Ordered By: [facility] on 02-11-2024 Iron Saturation 23.8 % 15.0-55.0 [facility] Iron+Iron Binding Capacityon 02-11-2024 Iron [Mass/Vol] 81 ug/dL Normal 65-175 [facility] Comment on above: Performed By: #### L 503.6030, L100.0100, L500.4050, L503.6539 ####[facility] [address] [place], [place], [id number] IRON SATURATION 23.8 Normal 15.0-55.0 [facility] Comment on above: Performed By: #### L 503.6030, L100.0100, L500.4050, L503.6550 ####[facility] [address] [place], [address] TIBC 341 ug/dL Normal 250-450 [facility] Comment on above: Performed By: #### L 503.6030, L100.0100, L500.4050, L503.6550 ####[facility] [address] [place], [address] Laboratory - Chemistry and C hemistry - challengeOrdered By: Robe Zavala on 02-11-2024 AST [Catalytic activity/Vol] 136 U/L High 15-37 [facility] Lymphocytes Auto (Unsp spec) [#/Vol]Ordered By: Robe Zavala on 02-11-2024 Lymphocytes (Bld) [#/Vol] 1.01 10*3/uL 0.83-4.51 [facility] Lymphocytes/100 WBC Auto (Un sp spec)Ordered By: Robe Zavala on 02-11-2024 Lymphocytes/100 WBC (Bld) 15.9 % Low 19-41 [facility] MCV (mean corpuscular volume ) determinationOrdered By: Robe Zavala on 02-11-2024 MCV (RBC) [Entitic vol] 97.3 fL High 80-94 [facility] Mean corpuscular hemoglobin (MCH) determinationOrdered By: Robe Zavala on 02-11-2024 MCH (RBC) [Entitic mass] 32.7 pg High 27.0-32.0 [facility] Mean corpuscular hemoglobin concentration (MCHC) determinationOrdered By: Robe Zavala on 02-11-2024 MCHC (RBC) [Mass/Vol] 33.6 g/dL 32-36 [facility] Mean platelet volume determi nationOrdered By: Robe Zavala on 02-11-2024 Platelet mean volume (Bld) [Entitic vol] 10.8 fL 6.2-12.0 [facility] Monocyte percentageOrdered B y: Robe Zavala on 02-11-2024 Monocytes/100 WBC (Bld) 8.0 % 0-10 [facility] Neutrophil percentageOrdered By: Robe Zavala on 02-11-2024 Neutrophils/100 WBC (Bld) 74.7 % High 47-70 [facility] Nucleated red blood cell per centageOrdered By: Robe Zavala on 02-11-2024 Nucleated RBC/100 WBC (Bld) [Ratio] 0 % 0-5 [facility] Platelet countOrdered By: Edwina Zavala on 02-11-2024 Platelets (Bld) [#/Vol] 302 10*3/uL 150-450 [facility] Potassium measurementOrdered By: Robe Zavala on 02-11-2024 Potassium [Moles/Vol] 3.7 mmol/L 3.5-5.1 [facility] RBC Auto (Bld) [#/Vol]Ordere d By: Robe Zavala on 02-11-2024 RBC (Bld) [#/Vol] 3.73 10*6/uL Low 4.6-6.2 [facility] Serum anion gap measurementO rdered By: Robe Zavala on 02-11-2024 Anion gap [Moles/Vol] 8 mmol/L 5-15 [facility] Serum globulin measurementOr dered By: Robe Zavala on 02-11-2024 Globulin (S) [Mass/Vol] 4.3 g/dL High 2.2-4.2 [facility] Serum or plasma alanine craig otransferase (ALT) measurementOrdered By: Robe Zavala on 02-11-2024 ALT [Catalytic activity/Vol] 100 U/L High 16-61 [facility] Serum or plasma albumin megha urement (mass/volume)Ordered By: Robe Zavala on 02-11-2024 Albumin [Mass/Vol] 2.8 g/dL Low 3.2-5.0 [facility] Serum or plasma alkaline sal sphatase measurementOrdered By: Robe Zavala on 02-11-2024 ALP [Catalytic activity/Vol] 454 U/L High 45-117 [facility] Serum or plasma calcium megha urement (mass/volume)Ordered By: Robe Zavala on 02-11-2024 Calcium [Mass/Vol] 8.9 mg/dL 8.5-10.1 [facility] Serum or plasma creatinine m easurement (mass/volume)Ordered By: Robe Zavala on 02-11-2024 Creatinine [Mass/Vol] 0.75 mg/dL 0.70-1.30 [facility] Comment on above: The validity of the calculated GFR & GFRAA in patients over 70 years has not been determined. Clinical correlation is essential. Serum or plasma iron saturat ion measurement (mass fraction)Ordered By: Robe Zavala on 02-11-2024 Iron saturation [Mass fraction] 23.8 % 15.0-55.0 [facility] Serum or plasma urea nitroge n measurement (mass/volume)Ordered By: Robe Zavala on 02-11-2024 Urea nitrogen [Mass/Vol] 10 mg/dL 7-18 [facility] Sodium levelOrdered By: Dashawn Zavala on 02-11-2024 Sodium [Moles/Vol] 137 mmol/L 136-145 [facility] TIBCOrdered By: Robe benavides on 02-11-2024 Total Iron Binding Capacity 341 ug/dL 250-450 [facility] Total proteinOrdered By: Victor Hugo Zavala on 02-11-2024 Protein [Mass/Vol] 7.1 g/dL 6.4-8.2 [facility] White blood cell (WBC) count Ordered By: Robe Zavala on 02-11-2024 WBC (Bld) [#/Vol] 6.4 10*3/uL 4.4-11.0 [facility] MR Abdomen WO and W contrast Matthew 01-24-2024 IMPRESSION: 1. Similar probable cirrhotic morphology of the liver with findings concerning for primary sclerosing cholangitis. There is worsening dilatation of the biliary ducts with more prominent area of stricturing/narrowing involving the srinivas hepatis and left hepatic duct branch point. 2. Although there are no 10 minute delayed postcontrast sequences, there is no enhancing focus in the liver or biliary ductal system. OLOGY EXAM: MRI ABDOMEN WI TH AND WITHOUT CONTRAST, 01/24/2024 13:51 PM CLINICAL INDICATIONS: eval for psc changes K83.01:PSC (primary sclerosing cholangitis) Please do MRI triple phase; Sex: Male, Age: 58 years COMPARISON: MRI ABDOMEN (OUTSIDE IMAGE) November 03, 2023 TECHNIQUE: Multiplanar, multisequence MRI scanning was performed of the abdomen before and after the administration of intravenous contrast. CONTRAST: Gadopiclenol SOLN 1-25 mL; Route of Administration: Intravenous; Dose: 4.6 mL. FINDINGS: Lung Bases: Normal. Liver: Similar appearance and morphology of an enlarged caudate lobe and lateral segment without definite surface nodularity. No suspicious enhancing lesion. Gallbladder: Possible stone in the gallbladder fundus.. Bile Ducts: There is prominent biliary ductal dilatation was predominantly involving the left hepatic lobe (series 9 image 17). There is narrowing of the biliary duct at the srinivas hepatis (series 9 image 49 as well as more distally within the branching of the left hepatic ducts (series 9 image 25). Multiple other areas of stricturing and narrowing in the distal intrahepatic biliary ducts. Although there are no tendon minute delayed images, there is no obvious enhancing focus in this area. Spleen: Normal. Pancreas: Normal. Adrenals: Normal. Right Kidney: Normal. No hydronephrosis. Left Kidney: Normal. No hydronephrosis. Gastrointestinal: No bowel dilation or wall thickening. Peritoneum/retroperitoneu m: No ascites. Lymph nodes: No enlarged or morphologically abnormal lymph nodes. Vasculature: The abdominal aorta is normal in course and caliber. Patent celiac and superior mesenteric arteries. Patent portal, splenic, and superior mesenteric veins. Body Wall: Normal. Bones: Partially visualized right hip arthroplasty. Probable hemangioma in the L2 vertebral body. RADIOLOGY Uriel John DO - 01/24/2024 EXAM: MRI ABDOMEN WITH AND WITHOUT CONTRAST, 01/24/2024 13:51 PM CLINICAL INDICATIONS: eval for psc changes K83.01:PSC (primary sclerosing cholangitis) Please do MRI triple phase; Sex: Male, Age: 58 years COMPARISON: MRI ABDOMEN (OUTSIDE IMAGE) November 03, 2023 TECHNIQUE: Multiplanar, multisequence MRI scanning was performed of the abdomen before and after the administration of intravenous contrast. CONTRAST: Gadopiclenol SOLN 1-25 mL; Route of Administration: Intravenous; Dose: 4.6 mL. FINDINGS: Lung Bases: Normal. Liver: Similar appearance and morphology of an enlarged caudate lobe and lateral segment without definite surface nodularity. No suspicious enhancing lesion. Gallbladder: Possible stone in the gallbladder fundus.. Bile Ducts: There is prominent biliary ductal dilatation was predominantly involving the left hepatic lobe (series 9 image 17). There is narrowing of the biliary duct at the srinivas hepatis (series 9 image 49 as well as more distally within the branching of the left hepatic ducts (series 9 image 25). Multiple other areas of stricturing and narrowing in the distal intrahepatic biliary ducts. Although there are no tendon minute delayed images, there is no obvious enhancing focus in this area. Spleen: Normal. Pancreas: Normal. Adrenals: Normal. Right Kidney: Normal. No hydronephrosis. Left Kidney: Normal. No hydronephrosis. Gastrointestinal: No bowel dilation or wall thickening. Peritoneum/retroperitoneu m: No ascites. Lymph nodes: No enlarged or morphologically abnormal lymph nodes. Vasculature: The abdominal aorta is normal in course and caliber. Patent celiac and superior mesenteric arteries. Patent portal, splenic, and superior mesenteric veins. Body Wall: Normal. Bones: Partially visualized right hip arthroplasty. Probable hemangioma in the L2 vertebral body. IMPRESSION IMPRESSION: 1. Similar probable cirrhotic morphology of the liver with findings concerning for primary sclerosing cholangitis. There is worsening dilatation of the biliary ducts with more prominent area of stricturing/narrowing involving the srinivas hepatis and left hepatic duct branch point. 2. Although there are no 10 minute delayed postcontrast sequences, there is no enhancing focus in the liver or biliary ductal system. [facility] Radiology Study observation (narrative) [facility] MR Abdomen WO and W contrast IVOrdered By: Uriel John on 01-24-2024 [facility] Work Phone: MRI ABDOMEN WITH AND WITHOUT CONTRASTon 01-24-2024 MRI ABDOMEN WITH AND WITHOUT CONTRAST Normal [facility] MRI ABDOMEN/ABDOMEN-PELVIS ( INTERPRETATION - OUTSIDE IMAGE)on 12-29-2023 IMPRESSION: 1. Limited study due to lack of intravenous contrast and substantial motion artifact. 2. Probable cirrhosis with questionable findings suggestive of primary sclerosing cholangitis, though definitive diagnosis is not possible given the limitations of the study. 3. Gallstone with questionable minimal pericholecystic fluid at the fundus versus artifact. OLOGY EXAM: MRI ABDOMEN/ABDOMEN-PELVIS (INTERPRETATION - OUTSIDE IMAGE), 12/29/2023 08:15 AM DATE- OUTSIDE STUDY PERFORMED: November 03, 2023 COMPARISON: Outside CT of the abdomen and pelvis from September 30, 2022. CLINICAL INDICATIONS: Reason for Exam:->eval for PSC K83.01:PSC (primary sclerosing cholangitis) DISCLAIMER: This is an interpretation of images obtained at an outside imaging facility. This report refers only to the anatomic area or body part in the study description, as requested. Moderate degradation of image quality on many pulse sequences due to motion artifact. STUDY DESCRIPTION: MRI of the abdomen without IV contrast TECHNIQUE: Multiplanar, multisequence MRI images of abdomen obtained without IV contrast. 3-D reconstructions were created, though there are no axial or coronal source MRCP images. FINDINGS: Lung Bases: Grossly clear. Normal heart size. Liver: Enlarged, with specific enlargement of the caudate and lateral segment, without surface nodularity. Grossly no focal observation within the limits of a noncontrast study. No in phase and opposed phased T1 weighted images to assess for steatosis. Gallbladder: Probable tiny stone at the fundus. Questionable minimal pericholecystic fluid at the fundus. Bile Ducts: Suspect very mild intrahepatic ductal dilation, though detailed evaluation is not possible given the motion artifact. Questionable minimal ductal irregularity. Spleen: Normal. Pancreas: Normal. Adrenals: Normal. Right Kidney: Normal. No hydronephrosis. Left Kidney: Normal. No hydronephrosis. Gastrointestinal: No bowel dilation or wall thickening. Peritoneum/retroperitoneu m: No ascites. Lymph nodes: No enlarged or morphologically abnormal lymph nodes. Vasculature: Normal caliber abdominal aorta. Body Wall: Normal. Bones: Partially visible left hip fixation hardware. Probable L1 benign vertebral body hemangioma RADIOLOGY Leida Reyna MD - 12/29/2023 EXAM: MRI ABDOMEN/ABDOMEN-PELVIS (INTERPRETATION - OUTSIDE IMAGE), 12/29/2023 08:15 AM DATE- OUTSIDE STUDY PERFORMED: November 03, 2023 COMPARISON: Outside CT of the abdomen and pelvis from September 30, 2022. CLINICAL INDICATIONS: Reason for Exam:->eval for PSC K83.01:PSC (primary sclerosing cholangitis) DISCLAIMER: This is an interpretation of images obtained at an outside imaging facility. This report refers only to the anatomic area or body part in the study description, as requested. Moderate degradation of image quality on many pulse sequences due to motion artifact. STUDY DESCRIPTION: MRI of the abdomen without IV contrast TECHNIQUE: Multiplanar, multisequence MRI images of abdomen obtained without IV contrast. 3-D reconstructions were created, though there are no axial or coronal source MRCP images. FINDINGS: Lung Bases: Grossly clear. Normal heart size. Liver: Enlarged, with specific enlargement of the caudate and lateral segment, without surface nodularity. Grossly no focal observation within the limits of a noncontrast study. No in phase and opposed phased T1 weighted images to assess for steatosis. Gallbladder: Probable tiny stone at the fundus. Questionable minimal pericholecystic fluid at the fundus. Bile Ducts: Suspect very mild intrahepatic ductal dilation, though detailed evaluation is not possible given the motion artifact. Questionable minimal ductal irregularity. Spleen: Normal. Pancreas: Normal. Adrenals: Normal. Right Kidney: Normal. No hydronephrosis. Left Kidney: Normal. No hydronephrosis. Gastrointestinal: No bowel dilation or wall thickening. Peritoneum/retroperitoneu m: No ascites. Lymph nodes: No enlarged or morphologically abnormal lymph nodes. Vasculature: Normal caliber abdominal aorta. Body Wall: Normal. Bones: Partially visible left hip fixation hardware. Probable L1 benign vertebral body hemangioma IMPRESSION IMPRESSION: 1. Limited study due to lack of intravenous contrast and substantial motion artifact. 2. Probable cirrhosis with questionable findings suggestive of primary sclerosing cholangitis, though definitive diagnosis is not possible given the limitations of the study. 3. Gallstone with questionable minimal pericholecystic fluid at the fundus versus artifact. [facility] Radiology Study observation (narrative) [facility] MRI ABDOMEN/ABDOMEN-PELVIS ( INTERPRETATION - OUTSIDE IMAGE)Ordered By: Leida Reyna on 12-29-2023 [facility] Work Phone: BASIC METABOLIC PANELon 12-01 Anion gap [Moles/Vol] 15 mmol/L 7 - 17 mmol/L [facility] Calcium [Mass/Vol] 9.1 mg/dL 8.6 - 10. 5 mg/dL [facility] Chloride [Moles/Vol] 103 mmol/L 98 - 10 8 mmol/L [facility] CO2 [Moles/Vol] 25 mmol/L 21 - 31 mmol/L [facility] Creatinine [Mass/Vol] 0.65 mg/dL Low 0.70 - 1.30 mg/dL [facility] eGFR, CKD-EPI, Male - PINF [facility] Comment on above: Reported eGFR is bas ed on the CKD-EPI 2020 equation using creatinine, age, and sex. Glucose [Mass/Vol] 58 mg/dL Low 70 - 99 mg/dL [facility] Osmolality Calc [Osmolality] 289 [facility] Potassium [Moles/Vol] 4.3 mmol/L 3.5 - 5.0 mmol/L [facility] Sodium [Moles/Vol] 139 mmol/L 135 - 145 mmol/L [facility] Urea nitrogen [Mass/Vol] 13 mg/dL 7 - 25 mg/dL [facility] Urea nitrogen/Creatinine [Mass ratio] 20 mg/mg [facility] CA 19-9Ordered By: Ysabel Martinez on 12-23-2023 Cancer Ag 19-9 Qn U/mL NINF - 37. 00 U/mL [facility] Comment on above: This test was perfor med on the [employer] Immunoassay platform which is a 2-step sandwich chemiluminescent immunoassay. It is important to note that assays using different manufacturers and/or methods may not be comparable. Interpretation and review of laboratory results Normal [facility] Chronic hepatitis differenti ation between hepatitis B and C virus panelon 12-23-2023 HBV core IgG+IgM Ql (S) Negative Negative [facility] HBV surface Ab IA Ql (S) Negative Negative [facility] HBV surface Ag Ql (S) Negative Negative [facility] HCV Ab Ql (S) Negative Negative [facility] FERRITINon 12-23-2023 Ferritin [Mass/Vol] 123.8 ng/mL 10.5 - 3 07.3 ng/mL [facility] Interpretation and review of laboratory results Normal [facility] HEPATIC FUNCTION PANELon Albumin [Mass/Vol] 3.6 g/dL 3.5 - 5.0 g/dL [facility] ALP [Catalytic activity/Vol] 400 U/L High 32 - 126 U/L [facility] ALT [Catalytic activity/Vol] 77 U/L High 10 - 52 U/L [facility] AST [Catalytic activity/Vol] 124 U/L High 10 - 39 U/L [facility] Bilirubin [Mass/Vol] 5.0 mg/dL High NINF - 1.5 mg/dL [facility] Bilirubin.direct [Mass/Vol] 3.0 mg/dL High NINF - 0.3 mg/dL [facility] Protein [Mass/Vol] 6.1 g/dL Low 6.4 - 8.3 g/dL [facility] HEPATITIS A AB, TOTAL (IGG+I GM)Ordered By: Edgar Matta on 12-23-2023 HAV IgG+IgM Ql (S) Positive Abnormal Negative [facility] Interpretation and review of laboratory results Abnormal [facility] HEPATITIS A IGM ABon 024 HAV IgM IA Ql Negative Negative [facility] IMMUNOGLOBULINS IGG IGA IGMo n 12-23-2023 IgA [Mass/Vol] 568 mg/dL High 66 - 433 mg/dL [facility] IgG [Mass/Vol] 858 mg/dL 600 - 1714 mg/dL [facility] IgM [Mass/Vol] 159 mg/dL 45 - 281 mg/dL [facility] IRON/IRON BINDING/TRANSFERRI Non 12-23-2023 Interpretation and review of laboratory results Normal [facility] Iron [Mass/Vol] 84 ug/dL [facility] Iron binding capacity [Mass/Vol] 308 [facility] Iron saturation [Mass fraction] 27 % 20 - 55 % [facility] Transferrin [Mass/Vol] 246 mg/dL 200 - 400 mg/dL [facility] No Panel Informationon 12-22 Interpretation and review of laboratory results Normal [facility] Interpretation and review of laboratory results Abnormal [facility] PROTIME-INRon 12-23-2023 INR Coag (Bld) [Relative time] 1.3 {INR} High 0.9 - 1.1 [facility] Interpretation and review of laboratory results Abnormal [facility] PT Coag (PPP) [Time] 16.6 s High [facility] Hemoglobin (Reticulocytes) [ Entitic mass]Ordered By: Robe Zavala on 05-14-2023 Reticulocyte Hemoglobin Equivalent 37.0 pg High 30-35 [facility] Immature reticulocyte fracti onOrdered By: Robe Zavala on 05-14-2023 Immature Reticulocyte Fraction 11.30 % 3.00-15.90 [facility] Reticulocyte hemoglobin equi valent (RET-He) measurementOrdered By: Robe Zavala on 05-14-2023 Hemoglobin (Reticulocytes) [Entitic mass] 37.0 pg High 30-35 [facility] Reticulocytes Auto (Bld) [#/ Vol]Ordered By: Robe Zavala on 05-14-2023 Reticulocyte Count 1.02 % 0.5-1.5 [facility] Reticulocytes/100 RBC (Bld) 1.02 % 0.5-1.5 [facility] Serum or plasma carcinoembry onic antigen measurement (mass/volume)Ordered By: Robe Zavala on 05-14-2023 Carcinoembryonic Ag [Mass/Vol] 3.1 ng/mL 0.0-4.7 [facility] Absolute lymphocyte countOrd ered By: Julio Hanson on 03-31-2023 Lymphocytes Auto (Unsp spec) [#/Vol] 0.86 10*3/uL 0.83-4.51 [facility] Automated lymphocyte count a s percentage of total leukocytesOrdered By: Julio Hanson on 03-31-2023 Lymphocytes/100 WBC Auto (Unsp spec) 15.9 % 19-41 [facility] Basophil percentageOrdered B y: Julio Hanson on 03-31-2023 Ammonia (P) [Moles/Vol] 46.0 umol/L 11-32 [facility] Basophils/100 WBC (Bld) 0.7 % 0-1 [facility] Bilirubin [Mass/Vol] 2.10 mg/dL 0.20-1.00 [facility] Comment on above: For patients on eltr ombopag therapy, use of Dimension [place] TBIL is not recommended. Chloride [Moles/Vol] 107 mmol/L 98-107 [facility] Cholesterol [Mass/Vol] 225 mg/dL <200 [facility] Comment on above: <200 mg/dL Desirable 200-240 mg/dL Borderline >240 mg/dL High Risk Eosinophils/100 WBC (Bld) 0.0 % 0-5 [facility] Glucose [Mass/Vol] 88 mg/dL 74-106 [facility] Hemoglobin (Bld) [Mass/Vol] 11.1 g/dL 13.0-16.5 [facility] LDH [Catalytic activity/Vol] 206 U/L 87-241 [facility] Monocytes/100 WBC (Bld) 9.4 % 0-10 [facility] Neutrophils (Bld) [#/Vol] 4.0 10*3/uL 2.0-7.7 [facility] Neutrophils/100 WBC (Bld) 73.4 % 47-70 [facility] Potassium [Moles/Vol] 4.1 mmol/L 3.5-5.1 [facility] Protein [Mass/Vol] 7.1 g/dL 6.4-8.2 [facility] Sodium [Moles/Vol] 137 mmol/L 136-145 [facility] Triglyceride [Mass/Vol] 93 mg/dL <199 [facility] Comment on above: The drugs N-Acetylcy steine and Metamizole may falsely depress this assay.Serum Triglycerides Reference Interval Normal <150 mg/dL Borderline high 150 - 199 mg/dL High 200 - 499 mg/dL Very High > or = 500 mg/dL WBC (Bld) [#/Vol] 5.4 10*3/uL 4.4-11.0 [facility] Determination of erythrocyte mean corpuscular volume (MCV)Ordered By: Julio Hanson on 03-31-2023 MCV (RBC) [Entitic vol] 96.3 fL 80-94 [facility] Erythrocyte distribution wid th ratioOrdered By: Julioalisha Hanson on 03-31-2023 Erythrocyte distribution width (RBC) [Ratio] 15.9 % 11.6-14.6 [facility] Erythrocyte distribution wid th standard deviationOrdered By: Julio Hanson on 03-31-2023 Erythrocyte distribution width (RBC) [Entitic vol] 55.6 fL 35.1-43.9 [facility] Erythrocyte sedimentation ra teOrdered By: Jluio Hanson on 03-31-2023 ESR (Bld) [Velocity] 32 mm/h 0-20 [facility] HIV 1 and HIV-2 antibody ass ay with HIV-1 p24 antigen detectionOrdered By: Julio Hanson on 03-31-2023 HIV 1+2 Ab+HIV1 p24 Ag IA Ql Non-Reactive Nonreactive [facility] Hematocrit Auto (Bld) [Volum e fraction]Ordered By: Julio Hanson on 03-31-2023 Hematocrit (Bld) [Volume fraction] 33.8 % 40-54 [facility] High density lipoprotein (HD L) measurementOrdered By: Julio Hanson on 03-31-2023 Cholesterol in HDL (Body fld) [Mass/Vol] 57 mg/dL >40 [facility] Comment on above: The drugs N-Acetylcy steine and Metamizole may falsely depress this assay. Reference Range HDL <40 mg/dL Low HDL Cholesterol HDL >or= 60 mg/dL High HDL Cholesterol Immature granulocytes/100 WB C Auto (Bld)Ordered By: Julio Hanson on 03-31-2023 Immature granulocytes/100 WBC (Bld) 0.600 % 0.0-0.9 [facility] Comment on above: IG% - Immature Granu locytes (promyelocytes, myelocytes and metamyelocytes) > 1% indicates that a LEFT SHIFT is Present. International normalized rat io (INR) calculationOrdered By: Julio Hanson on 03-31-2023 INR Coag (PPP) [Relative time] 1.2 {INR} [facility] Laboratory - Chemistry and C hemistry - challengeOrdered By: Julio Hanson on 03-31-2023 Albumin/Globulin [Mass ratio] 0.8 {ratio} 0.9-2.4 [facility] ALP [Catalytic activity/Vol] 727 U/L 45-117 [facility] ALT [Catalytic activity/Vol] 98 U/L 16-61 [facility] CO2 [Moles/Vol] 25.0 mmol/L 21.0-32.0 [facility] Cobalamin (Vitamin B12) [Mass/Vol] 721 pg/mL 211-911 [facility] Ferritin [Mass/Vol] 99 ng/mL 26-388 [facility] Globulin (S) [Mass/Vol] 3.9 g/dL 2.2-4.2 [facility] Urea nitrogen/Creatinine [Mass ratio] 22.7 mg/mg 10-20 [facility] Laboratory - CoagulationOrde red By: Julio Hanson on 03-31-2023 PT Coag (PPP) [Time] 15.6 s 11.7-14.9 [facility] Laboratory - Hematology and Cell countsOrdered By: Julio Hanson on 03-31-2023 MCH (RBC) [Entitic mass] 31.6 pg 27.0-32.0 [facility] MCHC (RBC) [Mass/Vol] 32.8 g/dL 32-36 [facility] Nucleated RBC/100 WBC (Bld) [Ratio] 0 % 0-5 [facility] Platelets (Bld) [#/Vol] 281 10*3/uL 150-450 [facility] Low density lipoprotein (LDL ) cholesterol measurementOrdered By: Julio Hanson on 03-31-2023 Cholesterol in LDL (Body fld) [Moles/Vol] 149 mg/dL 0-130 [facility] No Panel InformationOrdered By: Julio Hanson on 01-30-2024 C-Reactive Protein Extended Range 6.45 mg/L 0.0-3.0 [facility] Comment on above: C-Reactive Protein ( CRP) provides useful information for thediagnosis, therapy and monitoring of inflammatory processesand associated diseases. For the evaluation of Relative Riskfor Cardiovascular Disease, a High Sensitivity CRP (HSCRP)should be ordered. Estimated GFR (MDRD) Amer 137 mL/min >60 [facility] Comment on above: GFR Calc Estimated GFR (MDRD) Non-Af Amer 113 mL/min >60 [facility] Comment on above: Non- GFR Calc Free Triiodothyronine (T3) pg/dL 2.6 pg/mL 2.18-3.98 [facility] Total Iron Binding Capacity 308 ug/dL 250-450 [facility] Platelet mean volume Randall-Ec ker (Bld) [Entitic vol]Ordered By: Julio Hanson on 03-31-2023 Platelet mean volume (Bld) [Entitic vol] 11.0 fL 6.2-12.0 [facility] RBC Auto (Bld) [#/Vol]Ordere d By: Julio Hanson on 03-31-2023 RBC (Bld) [#/Vol] 3.51 10*6/uL 4.6-6.2 [facility] Serum or plasma calcium megha urement (mass/volume)Ordered By: Julio Hanson on 03-31-2023 Calcium [Mass/Vol] 9.0 mg/dL 8.5-10.1 [facility] Serum or plasma creatinine m easurement (mass/volume)Ordered By: Julio Hanson on 03-31-2023 Creatinine [Mass/Vol] 0.75 mg/dL 0.70-1.30 [facility] Comment on above: The validity of the calculated GFR & GFRAA in patients over 70 years has not been determined. Clinical correlation is essential. Serum or plasma thyroid stim ulating hormone (TSH) measurement (units/volume)Ordered By: Julio Hanson on 03-31-2023 TSH Qn 1.06 uIU/mL 0.358-3.74 [facility] Serum or plasma urea nitroge n measurement (mass/volume)Ordered By: Julio Hanson on 03-31-2023 Urea nitrogen [Mass/Vol] 17 mg/dL 7-18 [facility] Thin prep Papanicolaou smear with manual screeningOrdered By: Julio Hanson on 03-31-2023 Thin prep Papanicolaou smear with manual screening 3.2 g/dL 3.2-5.0 [facility] Thin prep Papanicolaou smear with manual screening 110 U/L 15-37 [facility] Thin prep Papanicolaou smear with manual screening 5 5-15 [facility] Thin prep Papanicolaou smear with manual screening 1.30 ng/dL 0.76-1.46 [facility] Very low density lipoprotein (VLDL) cholesterol measurementOrdered By: Juilo Hanson on 03-31-2023 Cholesterol in VLDL Calc [Moles/Vol] 19 mg/dL 5-40 [facility] Whole blood hemoglobin A1c/t otal hemoglobin ratio (mass fraction)Ordered By: Julio Hanson on 03-31-2023 HbA1c (Bld) [Mass fraction] 5.1 % 3.8-5.6 [facility] Comment on above: Normal < 5.7 % Predi abetic 5.7 - 6.4 % Diabetic >or= 6.5 % Please note range changes. POUCHOSCOPYon 02-09-[address] [facility] Gastroenterology Patient Name: Jc Dunaway Procedure Date: 02/09/2023 7:42 AM Date of : 1965 Admit Type: Outpatient Age: 57 Room: [place] [address] Gender: Male Note Status: Finalized Attending MD: Miroslava Joiner MD, [id number] Procedure: Pouchoscopy Indications: Follow-up of chronic ulcerative proctitis Providers: Miroslava Joiner MD (Doctor), Viktoriya Puri RN (Nurse), Lynda Hong RN (Nurse), MT Gale (Anesthesia Staff) Referring MD: ANDRE Holland (Referring MD) Medicines: Propofol per Anesthesia Complications: No immediate complications. Procedure: Pre-Anesthesia Assessment: - Prior to the procedure, a History and Physical was performed, and patient medications and allergies were reviewed. The patient is competent. The risks and benefits of the procedure and the sedation options and risks were discussed with the patient. All questions were answered and informed consent was obtained. Patient identification and proposed procedure were verified by the physician, the nurse and the fur dry cleaner hand in the procedure room at 08:36 AM. Mental Status Examination: alert and oriented. Airway Examination: Mallampati Class II (the uvula but not tonsillar pillars visualized). Respiratory Examination: clear to auscultation. CV Examination: normal. Prophylactic Antibiotics: The patient does not require prophylactic antibiotics. Prior Anticoagulants: The patient has taken no anticoagulant or antiplatelet agents. ASA Grade Assessment: III - A patient with severe systemic disease. After reviewing the risks and benefits, the patient was deemed in satisfactory condition to undergo the procedure. The anesthesia plan was to use monitored anesthesia care (MAC). Immediately prior to administration of medications, the patient was re-assessed for adequacy to receive sedatives. The heart rate, respiratory rate, oxygen saturations, blood pressure, adequacy of pulmonary ventilation, and response to care were monitored throughout the procedure. The physical status of the patient was re-assessed after the procedure. - Abdominal Examination: abdomen soft. - The physical status of the patient was re-assessed after the procedure. After obtaining informed consent, the endoscope was passed under direct vision. Throughout the procedure, the patient's blood pressure, pulse, and oxygen saturations were monitored continuously. The Colonoscope was introduced through the ileoanal anastomosis via the anus and advanced to the ileoanal pouch and into the hawa-terminal ileum. The procedure was performed without difficulty. The patient tolerated the procedure well. The quality of the bowel preparation was adequate. Findings: Patient is status-post TPC/IPAA with a pouch-rectal anastomosis. The hawa-terminal ileum appeared normal. There was a rectal cuff beginning at at 1 cm from the anal verge, characterized by healthy appearing mucosa. The cuff extended 3 cm in length. Biopsies were taken with a cold forceps for histology. Estimated blood loss was minimal. The exam was otherwise without abnormality. Impression: - The examined portion of the ileum was normal. - Rectal cuff with healthy appearing mucosa seen. Biopsied. - The examination was otherwise normal. Recommendation: - Patient has a contact number available for emergencies. The signs and symptoms of potential delayed complications were discussed with the patient. Return to normal activities tomorrow. Written discharge instructions were provided to the (more content not included)... LAB, [facility] Radiology Study observation (narrative) [facility] Absolute lymphocyte countOrd ered By: Robe Zavala on 01-06-2023 Lymphocytes Auto (Unsp spec) [#/Vol] 1.30 10*3/uL 0.83-4.51 [facility] Basophil percentageOrdered B y: Robe Zavala on 01-06-2023 Basophils/100 WBC (Bld) 1.4 % 0-1 [facility] Bilirubin [Mass/Vol] 1.30 mg/dL 0.20-1.00 [facility] Comment on above: For patients on eltr ombopag therapy, use of Dimension [place] TBIL is not recommended. Chloride [Moles/Vol] 109 mmol/L 98-107 [facility] Eosinophils/100 WBC (Bld) 0.2 % 0-5 [facility] Glucose [Mass/Vol] 91 mg/dL 74-106 [facility] Neutrophils (Bld) [#/Vol] 3.2 10*3/uL 2.0-7.7 [facility] Neutrophils/100 WBC (Bld) 61.1 % 47-70 [facility] Potassium [Moles/Vol] 3.9 mmol/L 3.5-5.1 [facility] Protein [Mass/Vol] 7.0 g/dL 6.4-8.2 [facility] Sodium [Moles/Vol] 138 mmol/L 136-145 [facility] WBC (Bld) [#/Vol] 5.2 10*3/uL 4.4-11.0 [facility] Blood erythrocytes count (nu mber/volume)Ordered By: Robe Zavala on 01-06-2023 RBC (Bld) [#/Vol] 3.57 10*6/uL 4.6-6.2 [facility] Blood hemoglobin measurement (mass/volume)Ordered By: Robe Zavala on 01-06-2023 Hemoglobin (Bld) [Mass/Vol] 11.7 g/dL 13.0-16.5 [facility] Blood lymphocytes/100 leukoc ytesOrdered By: Robe Zavala on 01-06-2023 Lymphocytes/100 WBC (Bld) 25.1 % 19-41 [facility] Blood monocytes/100 leukocyt esOrdered By: Robe Zavala on 01-06-2023 Monocytes/100 WBC (Bld) 11.8 % 0-10 [facility] Blood platelet mean volumeOr dered By: Robe Zavala on 01-06-2023 Platelet mean volume (Bld) [Entitic vol] 11.1 fL 6.2-12.0 [facility] Determination of erythrocyte mean corpuscular volume (MCV)Ordered By: Robe Zavala on 01-06-2023 MCV (RBC) [Entitic vol] 100.6 fL 80-94 [facility] Hematocrit Auto (Bld) [Volum e fraction]Ordered By: Robe Zavala on 01-06-2023 Hematocrit (Bld) [Volume fraction] 35.9 % 40-54 [facility] Iron measurement (mass/mass) [facility] 01-[facility] Iron (Unsp spec) [Mass/Mass] 84 ug/dL 65-175 [facility] Laboratory - Chemistry and C hemistry - challengeOrdered By: [facility] Herman on 01-06-2023 ALP [Catalytic activity/Vol] 611 U/L 45-117 [facility] ALT [Catalytic activity/Vol] 91 U/L 16-61 [facility] CO2 [Moles/Vol] 26.0 mmol/L 21.0-32.0 [facility] Cobalamin (Vitamin B12) [Mass/Vol] 585 pg/mL 211-911 [facility] Globulin (S) [Mass/Vol] 3.9 g/dL 2.2-4.2 [facility] Urea nitrogen/Creatinine [Mass ratio] 20.4 mg/mg 10-20 [facility] Laboratory - Hematology and Cell countsOrdered By: Robe Zavala on 01-06-2023 Erythrocyte distribution width (RBC) [Entitic vol] 54.7 fL 35.1-43.9 [facility] Erythrocyte distribution width (RBC) [Ratio] 14.6 % 11.6-14.6 [facility] Immature granulocytes/100 WBC (Bld) 0.400 % 0.0-0.9 [facility] Comment on above: IG% - Immature Granu locytes (promyelocytes, myelocytes and metamyelocytes) > 1% indicates that a LEFT SHIFT is Present. MCH (RBC) [Entitic mass] 32.8 pg 27.0-32.0 [facility] Nucleated RBC/100 WBC (Bld) [Ratio] 0 % 0-5 [facility] MCHC Auto (RBC) [Mass/Vol]Or dered By: Robe Zavala on 01-06-2023 MCHC (RBC) [Mass/Vol] 32.6 g/dL 32-36 [facility] No Panel InformationOrdered By: Robe Zavala on 01-06-2023 Estimated Creatinine Clearance Calc 70.86 ml/min [facility] Estimated GFR (MDRD) Amer 140 mL/min >60 [facility] Comment on above: GFR Calc Estimated GFR (MDRD) Non-Af Amer 116 mL/min >60 [facility] Comment on above: Non- GFR Calc Total Iron Binding Capacity 313 ug/dL 250-450 [facility] 585 pg/mL 211-911 [facility] Platelets bldOrdered By: Victor Hugo Zavala on 01-06-2023 Platelets (Bld) [#/Vol] 293 10*3/uL 150-450 [facility] Serum or plasma albumin megha urement (mass/volume)Ordered By: Robe Zavala on 01-06-2023 Albumin [Mass/Vol] 3.1 g/dL 3.2-5.0 [facility] Serum or plasma albumin/glob ulin mass ratioOrdered By: Robe Zavala on 01-06-2023 Albumin/Globulin [Mass ratio] 0.8 {ratio} 0.9-2.4 [facility] Serum or plasma calcium megha urement (mass/volume)Ordered By: Robe Zavala on 01-06-2023 Calcium [Mass/Vol] 8.5 mg/dL 8.5-10.1 [facility] Serum or plasma carcinoembry onic antigen measurement (mass/volume)Ordered By: Robe Zavala on 01-06-2023 Carcinoembryonic Ag [Mass/Vol] 3.1 ng/mL 0.0-4.7 [facility] Comment on above: Nonsmokers <3.9 Smok ers <5.6[employer] Electrochemiluminescence Immunoassay(ECLIA)Values obtained with different assay methods or kitscannot be used interchangeably. Results cannot beinterpreted as absolute evidence of the presence orabsence of malignant disease.Performed at: [employer] [id number] Director: Red Graham PhD, Phone: [phone] Serum or plasma creatinine m easurement (mass/volume)Ordered By: Robe Zavala on 01-06-2023 Creatinine [Mass/Vol] 0.74 mg/dL 0.70-1.30 [facility] Comment on above: The validity of the calculated GFR & GFRAA in patients over 70 years has not been determined. Clinical correlation is essential. Serum or plasma ferritin timmy surement (mass/volume)Ordered By: [facility] on 01-06-2023 Ferritin [Mass/Vol] 163 ng/mL 26-388 [facility] Serum or plasma iron saturat ion measurement (mass fraction)Ordered By: Robe Zavala on 01-06-2023 Iron saturation [Mass fraction] 26.8 % 15.0-55.0 [facility] Serum or plasma urea nitroge n measurement (mass/volume)Ordered By: Robe Zavala on 01-06-2023 Urea nitrogen [Mass/Vol] 15 mg/dL 7-18 [facility] Thin prep Papanicolaou smear with manual screeningOrdered By: [facility] Herman on 01-06-2023 Thin prep Papanicolaou smear with manual screening 96 U/L 15-37 [facility] Thin prep Papanicolaou smear with manual screening 3 5-15 [facility] Basophil percentageOrdered B y: Robe Zavala on 10-07-2022 LDH [Catalytic activity/Vol] 189 U/L 87-241 [facility] Direct bilirubinOrdered By: [facility] on 10-07-2022 Bilirubin.direct [Mass/Vol] 1.58 mg/dL High 0.00-0.30 [facility] PotassiumOrdered By: [facility] on 10-07-2022 Potassium 189 U/L 87-241 [facility] Serum or plasma non-glucuron idated bilirubin measurement (mass/volume)Ordered By: Robe Zavala on 10-07-2022 Bilirubin.indirect [Mass/Vol] 0.40 mg/dL 0.00-1.00 [facility] Hemoglobin in reticulocytes (mass per reticulocyte)Ordered By: [facility] on 09-09-2022 Hemoglobin (Reticulocytes) [Entitic mass] 34.4 pg 30-35 [facility] No Panel InformationOrdered By: [facility] on 09-09-2022 Immature Reticulocyte Fraction 3.70 % 3.00-15.90 [facility] Reticulocyte Count 0.57 % 0.5-1.5 [facility] Absolute lymphocyte counton 06-17-2021 Lymphocytes Auto (Unsp spec) [#/Vol] 0.54 10*3/uL 0.83-4.51 [facility] Work Phone: Basophil percentageon 2021 Basophils/100 WBC (Bld) 0.4 % 0-1 [facility] Work Phone: Eosinophils/100 WBC (Bld) 0.0 % 0-5 [facility] Work Phone: Neutrophils (Bld) [#/Vol] 12.6 10*3/uL 2.0-7.7 [facility] Work Phone: Neutrophils/100 WBC (Bld) 89.8 % 47-70 [facility] Work Phone: WBC (Bld) [#/Vol] 14.0 10*3/uL 4.4-11.0 [facility] Work Phone: [phone] Blood erythrocytes count (nu mber/volume)on 06-17-2021 RBC (Bld) [#/Vol] 3.94 10*6/uL 4.6-6.2 [facility] Work Phone: Blood hemoglobin measurement (mass/volume)on 06-17-2021 Hemoglobin (Bld) [Mass/Vol] 11.9 g/dL 13.0-16.5 [facility] Work Phone: Blood lymphocytes/100 leukoc yteson 06-17-2021 Lymphocytes/100 WBC (Bld) 3.9 % 19-41 [facility] Work Phone: Blood manual differential co mment interpretation (narrative result)on 06-17-2021 Manual differential comment Deandre (Bld) [Interp] SCANNED [facility] Comment on above: LYMPHOPENIA NOTED1+ ANISOCYTOSIS Blood monocytes/100 leukocyt eson 06-17-2021 Monocytes/100 WBC (Bld) 5.3 % 0-10 [facility] Work Phone: Blood platelet mean volumeon 06-17-2021 Platelet mean volume (Bld) [Entitic vol] 10.0 fL 6.2-12.0 [facility] Work Phone: Determination of erythrocyte mean corpuscular volume (MCV)on 06-17-2021 MCV (RBC) [Entitic vol] 89.8 fL 80-94 [facility] Work Phone: Hematocrit Auto (Bld) [Volum e fraction]on 06-17-2021 Hematocrit (Bld) [Volume fraction] 35.4 % 40-54 [facility] Work Phone: Iron measurement (mass/mass) on 06-17-2021 Iron (Unsp spec) [Mass/Mass] 15 ug/dL 65-175 [facility] Work Phone: Laboratory - Hematology and Cell countson 06-17-2021 Erythrocyte distribution width (RBC) [Entitic vol] 66.4 fL 35.1-43.9 [facility] Work Phone: Erythrocyte distribution width (RBC) [Ratio] 19.9 % 11.6-14.6 [facility] Work Phone: Immature granulocytes/100 WBC (Bld) 0.600 % 0.0-0.9 [facility] Work Phone: Comment on above: IG% - Immature Granu locytes (promyelocytes, myelocytes and metamyelocytes) > 1% indicates that a LEFT SHIFT is Present. MCH (RBC) [Entitic mass] 30.2 pg 27.0-32.0 [facility] Work Phone: Nucleated RBC/100 WBC (Bld) [Ratio] 0 % 0-5 [facility] Work Phone: MCHC Auto (RBC) [Mass/Vol]on 06-17-2021 MCHC (RBC) [Mass/Vol] 33.6 g/dL 32-36 [facility] Work Phone: Manual differential comment Deandre (Bld) [Interp]on 06-17-2021 Differential Comment SCANNED [facility] Comment on above: LYMPHOPENIA NOTED1+ ANISOCYTOSIS No Panel Informationon 06-17 Total Iron Binding Capacity 240 ug/dL 250-450 [facility] Work Phone: Platelets bldon 06-17-2021 Platelets (Bld) [#/Vol] 411 10*3/uL 150-450 [facility] Work Phone: Serum or plasma carcinoembry onic antigen measurement (mass/volume)on 06-17-2021 Carcinoembryonic Ag [Mass/Vol] 1.4 ng/mL [facility] Work Phone: Comment on above: Nonsmokers <3.9 Smok ers <5.6[employer] Electrochemiluminescence Immunoassay(ECLIA)Values obtained with different assay methods or kitscannot be used interchangeably. Results cannot beinterpreted as absolute evidence of the presence orabsence of malignant disease.Performed at: [address] [id number] Director: Red Graham PhD, Phone: [phone] Serum or plasma ferritin timmy surement (mass/volume)on 06-17-2021 Ferritin [Mass/Vol] 561 ng/mL 26-388 [facility] Work Phone: Serum or plasma iron saturat ion measurement (mass fraction)on 06-17-2021 Iron saturation [Mass fraction] 6.2 % 15.0-55.0 [facility] Work Phone: CALCIUMon 06-06-2021 Calcium [Mass/Vol] 8.6 mg/dL 8.6 - 10. 5 mg/dL [facility] CBC,PLATELETSon 06-06-2021 Erythrocyte distribution width (RBC) [Ratio] 23.7 % High 10.9 - 14.3 % [facility] Hematocrit (Bld) [Volume fraction] 35.4 % Low 39.6 - 48.8 % [facility] Hemoglobin (Bld) [Mass/Vol] 11.8 g/dL Low 13.4 - 16.8 g/dL [facility] Interpretation and review of laboratory results Abnormal [facility] MCH (RBC) [Entitic mass] 29.3 pg 26.1 - 33.3 pg [facility] MCHC (RBC) [Mass/Vol] 33.3 g/dL 31.9 - 36.5 g/dL [facility] MCV (RBC) [Entitic vol] 87.8 fL 79.0 - 94.5 fL [facility] Platelet mean volume (Bld) [Entitic vol] 11.8 fL 8.7 - 12.3 fL [facility] Platelets (Bld) [#/Vol] 222 10*3/uL 146 - 337 K/uL [facility] RBC (Bld) [#/Vol] 4.03 10*6/uL Low [facility] WBC (Bld) [#/Vol] 6.72 10*3/uL 3.73 - 10. 10 K/uL [facility] CHEM 7 (LYTES,BUN,CREA,GLUC) Ordered By: Darrell Lopez on 06-06-2021 Anion gap [Moles/Vol] 11 mmol/L 7 - 17 mmol/L [facility] Chloride [Moles/Vol] 107 mmol/L 98 - 10 8 mmol/L [facility] CO2 [Moles/Vol] 25 mmol/L 21 - 31 mmol/L [facility] Creatinine [Mass/Vol] 0.67 mg/dL Low 0.70 - 1.30 mg/dL [facility] GFR/1.73 sq M.predicted CKD-EPI (S/P/Bld) [Vol rate/Area] >90 >=60 mL/min/1.73m2 [facility] Comment on above: Reported eGFR is bas ed on the CKD-EPI 2020 equation using creatinine, age, and sex. Glucose [Mass/Vol] 88 mg/dL 70 - 99 mg/dL [facility] Osmolality Calc [Osmolality] 290 [facility] Potassium [Moles/Vol] 3.4 mmol/L Low 3.5 - 5.0 mmol/L [facility] Sodium [Moles/Vol] 140 mmol/L 135 - 145 mmol/L [facility] Urea nitrogen [Mass/Vol] 11 mg/dL 7 - 25 mg/dL [facility] Urea nitrogen/Creatinine [Mass ratio] 16 mg/mg [facility] MAGNESIUMon 06-06-2021 Magnesium [Mass/Vol] 1.9 mg/dL 1.6 - 2 .6 mg/dL [facility] No Panel Informationon 06-06 Interpretation and review of laboratory results Abnormal [facility] Interpretation and review of laboratory results Normal [facility] PHOSPHATE, INORGANICon 06-06 Phosphate [Mass/Vol] 1.7 mg/dL Low 2.2 - 4 .6 mg/dL [facility] CALCIUMon 06-05-2021 Calcium [Mass/Vol] 8.9 mg/dL 8.6 - 10. 5 mg/dL [facility] CBC,PLATELETSon 06-05-2021 Erythrocyte distribution width (RBC) [Ratio] 23.7 % High 10.9 - 14.3 % [facility] Hematocrit (Bld) [Volume fraction] 36.2 % Low 39.6 - 48.8 % [facility] Hemoglobin (Bld) [Mass/Vol] 12.1 g/dL Low 13.4 - 16.8 g/dL [facility] Interpretation and review of laboratory results Abnormal [facility] MCH (RBC) [Entitic mass] 29.0 pg 26.1 - 33.3 pg [facility] MCHC (RBC) [Mass/Vol] 33.4 g/dL 31.9 - 36.5 g/dL [facility] MCV (RBC) [Entitic vol] 86.8 fL 79.0 - 94.5 fL [facility] Platelet mean volume (Bld) [Entitic vol] 11.2 fL 8.7 - 12.3 fL [facility] Platelets (Bld) [#/Vol] 260 10*3/uL 146 - 337 K/uL [facility] RBC (Bld) [#/Vol] 4.17 10*6/uL Low [facility] WBC (Bld) [#/Vol] 8.83 10*3/uL 3.73 - 10. 10 K/uL [facility] CHEM 7 (LYTES,BUN,CREA,GLUC) on 06-05-2021 Anion gap [Moles/Vol] 13 mmol/L 7 - 17 mmol/L [facility] Chloride [Moles/Vol] 105 mmol/L 98 - 10 8 mmol/L [facility] CO2 [Moles/Vol] 23 mmol/L 21 - 31 mmol/L [facility] Creatinine [Mass/Vol] 0.70 mg/dL 0.70 - 1.30 mg/dL [facility] GFR/1.73 sq M.predicted CKD-EPI (S/P/Bld) [Vol rate/Area] >90 >=60 mL/min/1.73m2 [facility] Comment on above: Reported eGFR is bas ed on the CKD-EPI 2020 equation using creatinine, age, and sex. Glucose [Mass/Vol] 136 mg/dL High 70 - 99 mg/dL [facility] Interpretation and review of laboratory results Abnormal [facility] Osmolality Calc [Osmolality] 289 [facility] Potassium [Moles/Vol] 4.5 mmol/L 3.5 - 5.0 mmol/L [facility] Sodium [Moles/Vol] 136 mmol/L 135 - 145 mmol/L [facility] Urea nitrogen [Mass/Vol] 14 mg/dL 7 - 25 mg/dL [facility] Urea nitrogen/Creatinine [Mass ratio] 20 mg/mg [facility] MAGNESIUMon 06-05-2021 Magnesium [Mass/Vol] 1.8 mg/dL 1.6 - 2 .6 mg/dL [facility] No Panel Informationon 06-05 Interpretation and review of laboratory results Normal [facility] PHOSPHATE, INORGANICon 06-05 Phosphate [Mass/Vol] 4.5 mg/dL 2.2 - 4 .6 mg/dL [facility] CARDIAC RHYTHM (SCANNED)on 0 06-04-2021 [facility] Laboratory - Microbiology an d Antimicrobial susceptibilityon 05-31-2021 SARS-CoV-2 (COVID-19) RNA JACKY+probe Ql (Unsp spec) Not detected Not Detect [facility] Work Phone: Comment on above: Normal Reference Ran ge: Not DetectedMethod:(RT-PCR) real-time reverse transcriptase PCRLuminex HERNANDO Instrument*The Food and Drug Administration (FDA) has issued an Emergency Use Authorization (EAU) for the HERNANDO SARS-CoV-2 Assay for the rapid detection of the virus that causes COVID-19. This test has been validated, but the FDAs independent review of this validation is pending.*Negative results do not preclude infection and should not be used as the sole basis for treatment or patient management. Optimum specimen types and timing for peak viral levels during infections caused by SARS-CoV-2 have not been determined. Collection of multiple specimens from the same patient may be necessary to detect the virus. The possibility of a false negative result should be considered if the patient has clinical presentation or has had recent exposure. Absolute lymphocyte counton 03-13-2021 Lymphocytes Auto (Unsp spec) [#/Vol] 0.83 10*3/uL 0.83-4.51 [facility] Work Phone: Basophil percentageon 2021 Basophils/100 WBC (Bld) 0.9 % 0-1 [facility] Work Phone: Bilirubin [Mass/Vol] 0.60 mg/dL 0.20-1.00 [facility] Work Phone: Comment on above: For patients on eltr ombopag therapy, use of Dimension [place] TBIL is not recommended. Chloride [Moles/Vol] 107 mmol/L 98-107 [facility] Work Phone: [phone] Eosinophils/100 WBC (Bld) 0.0 % 0-5 [facility] Work Phone: Glucose [Mass/Vol] 81 mg/dL 74-106 [facility] Work Phone: Comment on above: Please note revised GLUCOSE reference range effective 2017. Neutrophils (Bld) [#/Vol] 5.0 10*3/uL 2.0-7.7 [facility] Work Phone: Neutrophils/100 WBC (Bld) 75.9 % 47-70 [facility] Work Phone: Potassium [Moles/Vol] 4.2 mmol/L 3.5-5.1 [facility] Work Phone: Protein [Mass/Vol] 8.0 g/dL 6.4-8.2 [facility] Work Phone: Sodium [Moles/Vol] 135 mmol/L 136-145 [facility] Work Phone: WBC (Bld) [#/Vol] 6.5 10*3/uL 4.4-11.0 [facility] Work Phone: Blood erythrocytes count (nu mber/volume)on 03-13-2021 RBC (Bld) [#/Vol] 3.68 10*6/uL 4.6-6.2 [facility] Work Phone: [phone] Blood hemoglobin measurement (mass/volume)on 03-13-2021 Hemoglobin (Bld) [Mass/Vol] 8.8 g/dL 13.0-16.5 [facility] Work Phone: [phone] Blood lymphocytes/100 leukoc yteson 03-13-2021 Lymphocytes/100 WBC (Bld) 12.7 % 19-41 [facility] Work Phone: Blood monocytes/100 leukocyt eson 03-13-2021 Monocytes/100 WBC (Bld) 10.0 % 0-10 [facility] Work Phone: Blood platelet mean volumeon 03-13-2021 Platelet mean volume (Bld) [Entitic vol] 9.0 fL 6.2-12.0 [facility] Work Phone: Determination of erythrocyte mean corpuscular volume (MCV)on 03-13-2021 MCV (RBC) [Entitic vol] 77.7 fL 80-94 [facility] Work Phone: Hematocrit Auto (Bld) [Volum e fraction]on 03-13-2021 Hematocrit (Bld) [Volume fraction] 28.6 % 40-54 [facility] Work Phone: Iron measurement (mass/mass) on 03-13-2021 Iron (Unsp spec) [Mass/Mass] 53 ug/dL 65-175 [facility] Work Phone: Laboratory - Chemistry and C hemistry - challengeon 03-13-2021 ALP [Catalytic activity/Vol] 820 U/L 45-117 [facility] Work Phone: ALT [Catalytic activity/Vol] 76 U/L 16-61 [facility] Work Phone: CO2 [Moles/Vol] 22.0 mmol/L 21.0-32.0 [facility] Work Phone: Cobalamin (Vitamin B12) [Mass/Vol] 663 pg/mL 211-911 [facility] Work Phone: Globulin (S) [Mass/Vol] 4.9 g/dL 2.2-4.2 [facility] Work Phone: Urea nitrogen/Creatinine [Mass ratio] 27.0 mg/mg 10-20 [facility] Work Phone: Laboratory - Hematology and Cell countson 03-13-2021 Erythrocyte distribution width (RBC) [Entitic vol] 48.3 fL 35.1-43.9 [facility] Work Phone: Erythrocyte distribution width (RBC) [Ratio] 17.4 % 11.6-14.6 [facility] Work Phone: Immature granulocytes/100 WBC (Bld) 0.500 % 0.0-0.9 [facility] Work Phone: Comment on above: IG% - Immature Granu locytes (promyelocytes, myelocytes and metamyelocytes) > 1% indicates that a LEFT SHIFT is Present. MCH (RBC) [Entitic mass] 23.9 pg 27.0-32.0 [facility] Work Phone: Nucleated RBC/100 WBC (Bld) [Ratio] 0 % 0-5 [facility] Work Phone: MCHC Auto (RBC) [Mass/Vol]on 03-13-2021 MCHC (RBC) [Mass/Vol] 30.8 g/dL 32-36 [facility] Work Phone: No Panel Informationon 03-13 Estimated GFR (MDRD) Amer 133 mL/min >60 [facility] Work Phone: Comment on above: GFR Calc Estimated GFR (MDRD) Non-Af Amer 110 mL/min >60 [facility] Work Phone: Comment on above: Non- GFR Calc Total Iron Binding Capacity 556 ug/dL 250-450 [facility] Work Phone: Platelets bldon 03-13-2021 Platelets (Bld) [#/Vol] 728 10*3/uL 150-450 [facility] Work Phone: Serum or plasma albumin megha urement (mass/volume)on 03-13-2021 Albumin [Mass/Vol] 3.1 g/dL 3.2-5.0 [facility] Work Phone: Serum or plasma albumin/glob ulin mass ratioon 03-13-2021 Albumin/Globulin [Mass ratio] 0.6 {ratio} 0.9-2.4 [facility] Work Phone: Serum or plasma calcium megha urement (mass/volume)on 03-13-2021 Calcium [Mass/Vol] 9.2 mg/dL 8.5-10.1 [facility] Work Phone: Serum or plasma carcinoembry onic antigen measurement (mass/volume)on 03-13-2021 Carcinoembryonic Ag [Mass/Vol] 2.0 ng/mL [facility] Work Phone: Comment on above: Nonsmokers <3.9 Smok ers <5.6[employer] Electrochemiluminescence Immunoassay(ECLIA)Values obtained with different assay methods or kitscannot be used interchangeably. Results cannot beinterpreted as absolute evidence of the presence orabsence of malignant disease.Performed at: [facility] [address] [id number] Director: Red Graham PhD, Phone: [phone] Serum or plasma creatinine m easurement (mass/volume)on 03-13-2021 Creatinine [Mass/Vol] 0.78 mg/dL 0.70-1.30 [facility] Work Phone: Comment on above: The validity of the calculated GFR & GFRAA in patients over 70 years has not been determined. Clinical correlation is essential. Serum or plasma ferritin timmy surement (mass/volume)on 03-13-2021 Ferritin [Mass/Vol] 8 ng/mL 26-388 [facility] Work Phone: Serum or plasma iron saturat ion measurement (mass fraction)on 03-13-2021 Iron saturation [Mass fraction] 9.5 % 15.0-55.0 [facility] Work Phone: Serum or plasma urea nitroge n measurement (mass/volume)on 03-13-2021 Urea nitrogen [Mass/Vol] 21 mg/dL 7-18 [facility] Work Phone: Thin prep Papanicolaou smear with manual screeningon 03-13-2021 Thin prep Papanicolaou smear with manual screening 79 U/L 15-37 [facility] Work Phone: Thin prep Papanicolaou smear with manual screening 6 5-15 [facility] Work Phone: Absolute lymphocyte counton 02-18-2021 Lymphocytes Auto (Unsp spec) [#/Vol] 0.22 10*3/uL 0.83-4.51 [facility] Work Phone: Basophil percentageon 2020 Bilirubin [Mass/Vol] 0.90 mg/dL 0.20-1.00 [facility] Work Phone: Comment on above: For patients on eltr ombopag therapy, use of Dimension [place] TBIL is not recommended. Chloride [Moles/Vol] 106 mmol/L 98-107 [facility] Work Phone: Eosinophils/100 WBC (Bld) 0.0 % 0-5 [facility] Work Phone: Glucose [Mass/Vol] 118 mg/dL 74-106 [facility] Work Phone: Comment on above: Fasting Glucose resu lt from 100 to 125 mg/dL suggests IMPAIRED HOMEOSTASIS per A.D.A. criteria.Please note revised GLUCOSE reference range effective 2017. Neutrophils (Bld) [#/Vol] 12.6 10*3/uL 2.0-7.7 [facility] Work Phone: Potassium [Moles/Vol] 4.8 mmol/L 3.5-5.1 [facility] Work Phone: Protein [Mass/Vol] 6.6 g/dL 6.4-8.2 [facility] Work Phone: Sodium [Moles/Vol] 139 mmol/L 136-145 [facility] Work Phone: WBC (Bld) [#/Vol] 13.7 10*3/uL 4.4-11.0 [facility] Work Phone: Blood erythrocytes count (nu mber/volume)on 02-18-2021 RBC (Bld) [#/Vol] 3.64 10*6/uL 4.6-6.2 [facility] Work Phone: Blood hemoglobin measurement (mass/volume)on 02-18-2021 Hemoglobin (Bld) [Mass/Vol] 9.2 g/dL 13.0-16.5 [facility] Work Phone: Blood lymphocytes/100 leukoc yteson 02-18-2021 Lymphocytes/100 WBC (Bld) 1.6 % 19-41 [facility] Work Phone: Blood manual differential co mment interpretation (narrative result)on 02-18-2021 Manual differential comment Deandre (Bld) [Interp] COMMENT [facility] Work Phone: Comment on above: LYMPHOPENIA NOTED Blood monocytes/100 leukocyt eson 02-18-2021 Monocytes/100 WBC (Bld) 5.0 % 0-10 [facility] Work Phone: Blood platelet mean volumeon 02-18-2021 Platelet mean volume (Bld) [Entitic vol] 10.1 fL 6.2-12.0 [facility] Work Phone: Determination of erythrocyte mean corpuscular volume (MCV)on 02-18-2021 MCV (RBC) [Entitic vol] 80.5 fL 80-94 [facility] Work Phone: Hematocrit Auto (Bld) [Volum e fraction]on 02-18-2021 Hematocrit (Bld) [Volume fraction] 29.3 % 40-54 [facility] Work Phone: Laboratory - Chemistry and C hemistry - challengeon 02-18-2021 ALP [Catalytic activity/Vol] 723 U/L 45-117 [facility] Work Phone: ALT [Catalytic activity/Vol] 55 U/L 16-61 [facility] Work Phone: CO2 [Moles/Vol] 28.0 mmol/L 21.0-32.0 [facility] Work Phone: Globulin (S) [Mass/Vol] 4.6 g/dL 2.2-4.2 [facility] Work Phone: Lipase [Catalytic activity/Vol] 70 U/L 73-393 [facility] Work Phone: Urea nitrogen/Creatinine [Mass ratio] 25.0 mg/mg 10-20 [facility] Work Phone: Laboratory - Hematology and Cell countson 02-18-2021 Basophils/100 WBC (Unsp spec) 0.3 % 0-1 [facility] Work Phone: Erythrocyte distribution width (RBC) [Entitic vol] 52.3 fL 35.1-43.9 [facility] Work Phone: Erythrocyte distribution width (RBC) [Ratio] 18.2 % 11.6-14.6 [facility] Work Phone: Immature granulocytes/100 WBC (Bld) 0.600 % 0.0-0.9 [facility] Work Phone: Comment on above: IG% - Immature Granu locytes (promyelocytes, myelocytes and metamyelocytes) > 1% indicates that a LEFT SHIFT is Present. MCH (RBC) [Entitic mass] 25.3 pg 27.0-32.0 [facility] Work Phone: Neutrophils/100 WBC (Bld) 92.5 % 47-70 [facility] Work Phone: Nucleated RBC/100 WBC (Bld) [Ratio] 0 % 0-5 [facility] Work Phone: MCHC Auto (RBC) [Mass/Vol]on 02-18-2021 MCHC (RBC) [Mass/Vol] 31.4 g/dL 32-36 [facility] Work Phone: No Panel Informationon 02-18 Estimated Creatinine Clearance Calc 61.76 ml/min [facility] Work Phone: Estimated GFR (MDRD) Amer 109 mL/min >60 [facility] Work Phone: Comment on above: GFR Calc Estimated GFR (MDRD) Non-Af Amer 90 mL/min >60 [facility] Work Phone: Comment on above: Non- GFR Calc Platelets bldon 02-18-2021 Platelets (Bld) [#/Vol] 625 10*3/uL 150-450 [facility] Work Phone: Serum or plasma albumin megha urement (mass/volume)on 02-18-2021 Albumin [Mass/Vol] 2.0 g/dL 3.2-5.0 [facility] Work Phone: Serum or plasma albumin/glob ulin mass ratioon 02-18-2021 Albumin/Globulin [Mass ratio] 0.4 {ratio} 0.9-2.4 [facility] Work Phone: Serum or plasma calcium megha urement (mass/volume)on 02-18-2021 Calcium [Mass/Vol] 8.4 mg/dL 8.5-10.1 [facility] Work Phone: Serum or plasma creatinine m easurement (mass/volume)on 02-18-2021 Creatinine [Mass/Vol] 0.92 mg/dL 0.70-1.30 [facility] Work Phone: Comment on above: The validity of the calculated GFR & GFRAA in patients over 70 years has not been determined. Clinical correlation is essential. Serum or plasma urea nitroge n measurement (mass/volume)on 02-18-2021 Urea nitrogen [Mass/Vol] 23 mg/dL 7-18 [facility] Work Phone: Thin prep Papanicolaou smear with manual screeningon 02-18-2021 Thin prep Papanicolaou smear with manual screening 39 U/L 15-37 [facility] Work Phone: Thin prep Papanicolaou smear with manual screening 5 5-15 [facility] Work Phone: Laboratory - Microbiology an d Antimicrobial susceptibilityon 02-08-2021 SARS-CoV-2 (COVID-19) RNA JACKY+probe Ql (Unsp spec) Not detected Not Detect [facility] Work Phone: Comment on above: Normal Reference Ran ge: Not DetectedMethod:(RT-PCR) real-time reverse transcriptase PCRLuminex HERNANDO Instrument*The Food and Drug Administration (FDA) has issued an Emergency Use Authorization (EAU) for the HERNANDO SARS-CoV-2 Assay for the rapid detection of the virus that causes COVID-19. This test has been validated, but the FDAs independent review of this validation is pending.*Negative results do not preclude infection and should not be used as the sole basis for treatment or patient management. Optimum specimen types and timing for peak viral levels during infections caused by SARS-CoV-2 have not been determined. Collection of multiple specimens from the same patient may be necessary to detect the virus. The possibility of a false negative result should be considered if the patient has clinical presentation or has had recent exposure. Folate [Mass/Vol]on 01-01-20 Folate 20.40 ng/mL 3.1-55.4 [facility] Serum or plasma folate measu rement (mass/volume)on 12-31-2020 Folate [Mass/Vol] 20.40 ng/mL 3.1-55.4 [facility] CT ABD/PEL STONE PROTOCOLon 08-03-2020 CT ABD/PEL STONE PROTOCOL CT ABD/PEL STONE PROTOCOL Ordering Physician: Ramon Perkins MD 08/03/2020 7:[address] STONE PROTOCOL: Clinical Statement: Calculus of kidney Comparison: None TECHNIQUE: Serial axial images of the abdomen and pelvis were obtained without contrast. FINDINGS: Unenhanced imaging is limited for evaluation of some intra-abdominal and pelvic pathology. 3 mm nonobstructing right lower pole calculus. The kidneys, ureters, and bladder are unremarkable. There is no large pelvic mass. The esophagus, stomach, small bowel are normal in course and caliber. Fatty infiltration of the sigmoid colon wall likely reflects remote insult or inflammation. There is also diffuse colonic wall thickening and mild infiltration of the surrounding fat which may reflect colitis. Noncontrast images of the liver, gallbladder, pancreas, spleen, and adrenal glands are normal. The visualized arterial and venous structures are unremarkable. No gross lymphadenopathy. Numerous normal-sized lymph nodes are seen in the right lower quadrant. No suspicious osseous lesion. Left hip fixation hardware is intact. IMPRESSION: 3 mm nonobstructing right lower pole calculus. Diffuse colonic wall thickening and mild infiltration of the surrounding fat which may reflect colitis. There is fatty deposition in the sigmoid colon wall suggestive of a chronic inflammatory process. Dictated by Production Analyst: Archana Malik DO I, Bj Moyer MD, have supervised the procedure and/or image review, and agree with the above interpretation and report. ---- Electronic Signature on File ---- Signed By: Bj Moyer MD [email or web address] Dictated: 08/03/2020 8:18 AM Signed: 08/03/2020 8:48 AM Reported By: BJ MOYER M.D. Signed By: BJ MOYER M.D. [facility] Vital Signs Date Time Vital Sign Value Performing Clinician Facility 01-11-2025 09:14-0500 Body height 167.[address] Olive Valera DO Work Phone: [phone] [address] 01-11-2025 09:14-0500 Body temperature 97.6 [degF] Dr. Olive Valera DO Work Phone: [phone] [place] [address] 01-11-2025 09:14-0500 Diastolic blood pressure 67 mm[Hg] Dr. Olive Valera DO Work Phone: [phone] [place] [address] 01-11-2025 09:14-0500 Heart rate 86 /min Dr. Olive Valera DO Work Phone: [phone])[phone] [place] [address] 01-11-2025 09:14-0500 Respiratory rate 16 /min Dr. Olive Valera DO Work Phone: [phone] [place] [address] 01-11-2025 09:14-0500 SaO2% (BldA) [Mass fraction] 96 % Dr. Olive Valera DO Work Phone: [phone] [place] [address] 01-11-2025 09:14-0500 Systolic blood pressure 118 mm[Hg] Dr. Olive Valera DO Work Phone: [phone] [address] 01-04-2025 09:20-0500 Body mass index (BMI) [Ratio] 16 kg/m2 Dr. Olive Valera DO Work Phone: [facility] 01-04-2025 09:20-0500 Body weight [address] Olive Valera DO Work Phone: [facility] 12-31-2024 11:07-0400 Body temperature 99.1 [degF] Sonya Treviño MD, MPH Work Phone: [facility] 12-31-2024 11:07-0400 Diastolic blood pressure 68 mm[Hg] Sonya Treviño MD, MPH Work Phone: [phone] [address] 12-31-2024 11:07-0400 Heart rate 99 /min Sonya Treviño MD, MPH Work Phone: [facility] 12-31-2024 11:07-0400 Respiratory rate 12 /min Sonya Treviño MD, MPH Work Phone: 3(814)[phone] [place] [address] 12-31-2024 11:07-0400 SaO2% (BldA) [Mass fraction] 98 % Sonya Treviño MD, MPH Work Phone: [facility] 12-31-2024 11:07-0400 Systolic blood pressure 125 mm[Hg] Sonya Treviño MD, MPH Work Phone: [facility] 12-29-2024 16:21-0400 Body mass index (BMI) [Ratio] 15.49 kg/m2 Sonya Treviño MD, MPH Work Phone: [facility] 12-29-2024 16:21-0400 Body weight 43.55 kg Sonya Treviño MD, MPH Work Phone: [facility] 12-28-2024 09:09-0400 Body height 167.6 cm Sonya Treviño MD, MPH Work Phone: [facility] 12-21-2024 19:46-0400 Body temperature 100.2 [degF] Dr. Olive Valera DO Work Phone: 9(849)199-184571 [place] [address] 12-21-2024 19:46-0400 Diastolic blood pressure 87 mm[Hg] Dr. Olive Valera DO Work Phone: 9(264)933-224471 [place] [address] 12-21-2024 19:46-0400 Heart rate 85 /min Dr. Olive Valera DO Work Phone: 8(869)244-632371 [place] [address] 12-21-2024 19:46-0400 Respiratory rate 22 /min Dr. Olive Valera DO Work Phone: 6(229)401-250171 [place] [address] 12-21-2024 19:46-0400 SaO2% (BldA) [Mass fraction] 97 % Dr. Olive Valera DO Work Phone: 9(322)418-318971 [place] [address] 12-21-2024 19:46-0400 Systolic blood pressure 135 mm[Hg] Dr. Olive Valera DO Work Phone: 0(479)815-372571 [place] [address] 12-21-2024 12:33-0400 Body mass index (BMI) [Ratio] 15.7 kg/m2 Dr. Olive Valera DO Work Phone: 8(317)856-073671 [place] [address] 12-21-2024 12:33-0400 Body weight 44.[address] Olive Valera DO Work Phone: 2(303)393-098671 [place] [address] 12-21-2024 10:13-0400 Body mass index (BMI) [Ratio] 16 kg/m2 Dr. Olive Valera DO Work Phone: 2(971)864-688271 [place] [address] 12-21-2024 10:13-0400 Body temperature 98.9 [degF] Dr. Olive Valera DO Work Phone: 3(943)852-928671 [place] [address] 12-21-2024 10:13-0400 Body weight 45.[address] Olive Valera DO Work Phone: 0(208)495-957871 [place] [address] 12-21-2024 10:13-0400 Diastolic blood pressure 61 mm[Hg] Dr. Olive Valera DO Work Phone: 3(617)343-867871 [place] [address] 12-21-2024 10:13-0400 Heart rate 84 /min Dr. Olive Valera DO Work Phone: [facility] 12-21-2024 10:13-0400 Respiratory rate 18 /min Dr. Olive Valera DO Work Phone: [facility] 12-21-2024 10:13-0400 SaO2% (BldA) [Mass fraction] 97 % Dr. Olive Valera DO Work Phone: [facility] 12-21-2024 10:13-0400 Systolic blood pressure 105 mm[Hg] Dr. Olive Valera DO Work Phone: [facility] 10-23-2024 07:28-0400 Body height 167.6 cm Maribel Brooks MD Work Phone: [facility] 10-23-2024 07:28-0400 Body mass index (BMI) [Ratio] 16.14 kg/m2 Maribel Brooks MD Work Phone: [facility] 10-23-2024 07:28-0400 Body weight 45.36 kg Maribel Brooks MD Work Phone: [facility] 10-23-2024 07:28-0400 Diastolic blood pressure 60 mm[Hg] Maribel Brooks MD Work Phone: [facility] 10-23-2024 07:28-0400 Heart rate 76 /min Maribel Brooks MD Work Phone: [facility] 10-23-2024 07:28-0400 Systolic blood pressure 115 mm[Hg] Maribel Brooks MD Work Phone: [facility] 10-10-2024 13:59-0400 Body height 167.6 cm Babs Marley MD Work Phone: [facility] 10-10-2024 13:59-0400 Body mass index (BMI) [Ratio] 16.17 kg/m2 Babs Marley MD Work Phone: [facility] 10-10-2024 13:59-0400 Body temperature 98.2 [degF] Babs Marley MD Work Phone: [facility] 10-10-2024 13:59-0400 Body weight 45.45 kg Babs Marley MD Work Phone: [facility] 10-10-2024 13:59-0400 Diastolic blood pressure 55 mm[Hg] Babs Marley MD Work Phone: [facility] 10-10-2024 13:59-0400 Heart rate 86 /min Babs Marley MD Work Phone: [facility] 10-10-2024 13:59-0400 Systolic blood pressure 116 mm[Hg] Babs Marley MD Work Phone: [facility] 09-21-2024 14:14-0400 Body height 162.6 cm Maribel Brooks MD Work Phone: [facility] 09-21-2024 14:14-0400 Body mass index (BMI) [Ratio] 17.85 kg/m2 Maribel Brooks MD Work Phone: [facility] 09-21-2024 14:14-0400 Body weight 47.17 kg Maribel Brooks MD Work Phone: [facility] 09-21-2024 14:14-0400 Diastolic blood pressure 68 mm[Hg] Maribel Brooks MD Work Phone: [facility] 09-21-2024 14:14-0400 Heart rate 76 /min Maribel Brooks MD Work Phone: [facility] 09-21-2024 14:14-0400 SaO2% (BldA) [Mass fraction] 98 % Maribel Brooks MD Work Phone: [facility] 09-21-2024 14:14-0400 Systolic blood pressure 108 mm[Hg] Maribel Brooks MD Work Phone: [facility] 09-21-2024 12:55-0400 Body height 162.6 cm Analisa Donovan MD Work Phone: [facility] 09-21-2024 12:55-0400 Body mass index (BMI) [Ratio] 17.85 kg/m2 Analisa Donovan MD Work Phone: [facility] 09-21-2024 12:55-0400 Body temperature 98.4 [degF] Analisa Donovan MD Work Phone: [facility] 09-21-2024 12:55-0400 Body weight 47.17 kg Analisa Donovan MD Work Phone: [facility] 09-21-2024 12:55-0400 Diastolic blood pressure 74 mm[Hg] Analisa Donovan MD Work Phone: [facility] 09-21-2024 12:55-0400 Heart rate 77 /min Analisa Donovan MD Work Phone: [facility] 09-21-2024 12:55-0400 SaO2% (BldA) [Mass fraction] 96 % Analisa Donovan MD Work Phone: [facility] 09-21-2024 12:55-0400 Systolic blood pressure 110 mm[Hg] Analisa Donovan MD Work Phone: [facility] 08-22-2024 14:24-0400 Body height 167.6 cm Babs Marley MD Work Phone: [facility] 08-22-2024 14:24-0400 Body mass index (BMI) [Ratio] 16.96 kg/m2 Babs Marley MD Work Phone: [facility] 08-22-2024 14:24-0400 Body temperature 97.7 [degF] Babs Marley MD Work Phone: [facility] 08-22-2024 14:24-0400 Body weight 47.67 kg Babs Marley MD Work Phone: [facility] 08-22-2024 14:24-0400 Diastolic blood pressure 75 mm[Hg] Babs Marley MD Work Phone: [facility] 08-22-2024 14:24-0400 Heart rate 85 /min Babs Marley MD Work Phone: [facility] 08-22-2024 14:24-0400 Systolic blood pressure 130 mm[Hg] Babs Marley MD Work Phone: [facility] 08-17-2024 09:06-0400 Body height 167.[address] Olive Valera DO Work Phone: [facility] 08-17-2024 09:06-0400 Body mass index (BMI) [Ratio] 17.2 kg/m2 Dr. Olive Valera DO Work Phone: [facility] 08-17-2024 09:06-0400 Body temperature 98.1 [degF] Dr. Olive Valera DO Work Phone: [facility] 08-17-2024 09:06-0400 Body weight 48.[address] Olive Valera DO Work Phone: [facility] 08-17-2024 09:06-0400 Diastolic blood pressure 65 mm[Hg] Dr. Olive Valera DO Work Phone: [facility] 08-17-2024 09:06-0400 Heart rate 89 /min Dr. Olive Valera DO Work Phone: [facility] 08-17-2024 09:06-0400 Respiratory rate 16 /min Dr. Olive Valera DO Work Phone: [facility] 08-17-2024 09:06-0400 SaO2% (BldA) [Mass fraction] 96 % Dr. Olive Valera DO Work Phone: [facility] 08-17-2024 09:06-0400 Systolic blood pressure 101 mm[Hg] Dr. Olive Valera DO Work Phone: [facility] 08-09-2024 15:19-0400 Body temperature 97.81 [degF] Sonya Treviño MD, MPH Work Phone: [facility] 08-09-2024 15:19-0400 Diastolic blood pressure 72 mm[Hg] Sonya Treviño MD, MPH Work Phone: [facility] 08-09-2024 15:19-0400 Heart rate 80 /min Sonya Treviño MD, MPH Work Phone: [facility] 08-09-2024 15:19-0400 Respiratory rate 13 /min Sonya Treviño MD, MPH Work Phone: [facility] 08-09-2024 15:19-0400 SaO2% (BldA) [Mass fraction] 100 % Sonya Treviño MD, MPH Work Phone: [facility] 08-09-2024 15:19-0400 Systolic blood pressure 118 mm[Hg] Sonya Treviño MD, MPH Work Phone: [facility] 08-09-2024 11:52-0400 Body mass index (BMI) [Ratio] 16.96 kg/m2 Sonya Treviño MD, MPH Work Phone: [facility] 08-09-2024 11:52-0400 Body weight 47.67 kg Sonya Treviño MD, MPH Work Phone: [facility] 08-01-2024 18:50-0400 Body height 167.6 cm Sonya Treviño MD, MPH Work Phone: [facility] 07-04-2024 14:08-0400 Body mass index (BMI) [Ratio] 16.19 kg/m2 W. Martha MILIAN Work Phone: [facility] 07-04-2024 14:08-0400 Body temperature 98.01 [degF] W. Martha MILIAN Work Phone: [facility] 07-04-2024 14:08-0400 Body weight 45.5 kg W. Martha MILIAN Work Phone: 6(968)128-269166 [address] 07-04-2024 14:08-0400 Diastolic blood pressure 81 mm[Hg] W. Martha MILIAN Work Phone: [facility] 07-04-2024 14:08-0400 Heart rate 94 /min W. Martha MILIAN Work Phone: [facility] 07-04-2024 14:08-0400 Systolic blood pressure 128 mm[Hg] W. Martha MILIAN Work Phone: [facility] 06-20-2024 14:08-0400 Body mass index (BMI) [Ratio] 15.67 kg/m2 W. Martha MILIAN Work Phone: [facility] 06-20-2024 14:08-0400 Body temperature 97.2 [degF] W. Martha MILIAN Work Phone: [facility] 06-20-2024 14:08-0400 Body weight 44.04 kg W. Martha MILIAN Work Phone: [facility] 06-20-2024 14:08-0400 Diastolic blood pressure 68 mm[Hg] W. Martha MILIAN Work Phone: [facility] 06-20-2024 14:08-0400 Heart rate 92 /min Akosua. Martha MILIAN Work Phone: [facility] 06-20-2024 14:08-0400 Systolic blood pressure 114 mm[Hg] WMiguelina Thomas MD Work Phone: [facility] 06-15-2024 15:01-0400 Body height 167.6 cm Carmen Castellanos MD Work Phone: [facility] 06-15-2024 15:01-0400 Body mass index (BMI) [Ratio] 15.56 kg/m2 Carmen Castellanos MD Work Phone: [facility] 06-15-2024 15:01-0400 Body weight 43.73 kg Carmen Castellanos MD Work Phone: [facility] 06-15-2024 15:01-0400 Diastolic blood pressure 50 mm[Hg] Carmen Castellanos MD Work Phone: [facility] 06-15-2024 15:01-0400 Heart rate 83 /min Carmen Castellanos MD Work Phone: [facility] 06-15-2024 15:01-0400 SaO2% (BldA) [Mass fraction] 96 % Carmen Castellanos MD Work Phone: [facility] 06-15-2024 15:01-0400 Systolic blood pressure 94 mm[Hg] Carmen Castellanos MD Work Phone: [facility] 06-13-2024 13:21-0400 Body mass index (BMI) [Ratio] 15.2 kg/m2 Dalia Thomas MD Work Phone: [facility] 06-13-2024 13:21-0400 Body temperature 97.7 [degF] W. Martha MILIAN Work Phone: [facility] 06-13-2024 13:21-0400 Body weight 42.68 kg W. Martha MILIAN Work Phone: [facility] 06-13-2024 13:21-0400 Diastolic blood pressure 77 mm[Hg] W. Martha MILIAN Work Phone: [facility] 06-13-2024 13:21-0400 Heart rate 87 /min W. Martha MILIAN Work Phone: [facility] 06-13-2024 13:21-0400 Systolic blood pressure 125 mm[Hg] W. Martha MILIAN Work Phone: [facility] 05-13-2024 15:30-0400 Diastolic blood pressure 73 mm[Hg] Jess Gamez MD Work Phone: [facility] 05-13-2024 15:30-0400 Heart rate 68 /min Jess Gamez MD Work Phone: [facility] 05-13-2024 15:30-0400 Respiratory rate 20 /min Jess Gamez MD Work Phone: [facility] 05-13-2024 15:30-0400 SaO2% (BldA) [Mass fraction] 98 % Jess Gamez MD Work Phone: [facility] 05-13-2024 15:30-0400 Systolic blood pressure 129 mm[Hg] Jess Gamez MD Work Phone: [facility] 05-13-2024 13:02-0400 Body height 167.6 cm Jess Gamez MD Work Phone: [facility] 05-03-2024 08:56-0500 Body height 167.[address] Olive Valera DO Work Phone: [facility] 05-03-2024 08:56-0500 Body mass index (BMI) [Ratio] 16.7 kg/m2 Dr. Olive Valera DO Work Phone: [facility] 05-03-2024 08:56-0500 Body weight 47.[address] Olive Valera DO Work Phone: [facility] 05-03-2024 08:56-0500 Diastolic blood pressure 79 mm[Hg] Dr. Olive Valera DO Work Phone: [facility] 05-03-2024 08:56-0500 Respiratory rate 18 /min Dr. Olive Valera DO Work Phone: [facility] 05-03-2024 08:56-0500 Systolic blood pressure 127 mm[Hg] Dr. Olive Valera DO Work Phone: [facility] 04-14-2024 16:00-0500 Heart rate 67 /min Josué Mclain MD Work Phone: [facility] 04-14-2024 16:00-0500 Respiratory rate 16 /min Josué Mclain MD Work Phone: [facility] 04-14-2024 16:00-0500 SaO2% (BldA) [Mass fraction] 100 % Josué Mclain MD Work Phone: [facility] 04-14-2024 15:30-0500 Diastolic blood pressure 63 mm[Hg] Josué Mclain MD Work Phone: [facility] 04-14-2024 15:30-0500 Systolic blood pressure 104 mm[Hg] Josué Mclain MD Work Phone: [facility] 04-14-2024 11:39-0500 Body height 167.6 cm Josué Mclain MD Work Phone: 0(863)234-626884 [place] [address] 04-14-2024 11:39-0500 Body mass index (BMI) [Ratio] 16.01 kg/m2 Josué Mclain MD Work Phone: 2(623)347-294584 [place] [address] 04-14-2024 11:39-0500 Body temperature 98.01 [degF] Josué Mclain MD Work Phone: 0(759)840-045884 [place] [address] 04-14-2024 11:39-0500 Body weight 45 kg Josué Mclain MD Work Phone: 2(878)806-841084 [place] [address] 03-29-2024 10:53-0500 Body height 167.6 cm Katia Shelton DO Work Phone: 3(424)806-101784 [place] [address] 03-29-2024 10:53-0500 Body mass index (BMI) [Ratio] 16.8 kg/m2 Katia Shelton DO Work Phone: 8(555)935-800084 [place] [address] 03-29-2024 10:53-0500 Body weight 47.22 kg Katia Shelton DO Work Phone: 4(601)599-536284 [place] [address] 03-29-2024 10:53-0500 Diastolic blood pressure 52 mm[Hg] Katia Shelton DO Work Phone: 5(580)793-797884 [place] [address] 03-29-2024 10:53-0500 Heart rate 73 /min Katia Shelton DO Work Phone: 7(344)267-583684 [place] [address] 03-29-2024 10:53-0500 SaO2% (BldA) [Mass fraction] 97 % Katia Shelton DO Work Phone: 8(448)373-855084 [place] [address] 03-29-2024 10:53-0500 Systolic blood pressure 100 mm[Hg] Katia Shelton DO Work Phone: 2(707)958-181084 [place] [address] 03-24-2024 13:55-0500 Body height 167.6 cm Babs Marley MD Work Phone: [facility] 03-24-2024 13:55-0500 Body mass index (BMI) [Ratio] 16.62 kg/m2 Babs Marley MD Work Phone: [facility] 03-24-2024 13:55-0500 Body weight 46.72 kg Babs Marley MD Work Phone: [facility] 03-15-2024 09:30-0500 Body height 167.6 cm Ba Boland MD, PhD Work Phone: [facility] 03-15-2024 09:30-0500 Body mass index (BMI) [Ratio] 16.74 kg/m2 Ba Boland MD, PhD Work Phone: 8(213)702-721528 [address] 03-15-2024 09:30-0500 Body temperature 98.71 [degF] Ba Boland MD, PhD Work Phone: [facility] 03-15-2024 09:30-0500 Body weight 47.04 kg Ba Boland MD, PhD Work Phone: [facility] 03-15-2024 09:30-0500 Diastolic blood pressure 72 mm[Hg] Ba Boland MD, PhD Work Phone: [facility] 03-15-2024 09:30-0500 Heart rate 74 /min Ba Boland MD, PhD Work Phone: [facility] 03-15-2024 09:30-0500 Systolic blood pressure 112 mm[Hg] Ba Boland MD, PhD Work Phone: [facility] 02-18-2024 13:10-0500 Body mass index (BMI) [Ratio] 16.1 kg/m2 Dr. Olive Valera DO Work Phone: [facility] 02-18-2024 13:10-0500 Body temperature 98.8 [degF] Dr. Olive Valera DO Work Phone: [facility] 02-18-2024 13:10-0500 Body weight 45.[address] Olive Valera DO Work Phone: [facility] 02-18-2024 13:10-0500 Diastolic blood pressure 66 mm[Hg] Dr. Olive Valera DO Work Phone: [facility] 02-18-2024 13:10-0500 Heart rate 65 /min Dr. Olive Valera DO Work Phone: [facility] 02-18-2024 13:10-0500 Respiratory rate 16 /min Dr. Olive Valera DO Work Phone: [facility] 02-18-2024 13:10-0500 SaO2% (BldA) [Mass fraction] 100 % Dr. Olive Valera DO Work Phone: [facility] 02-18-2024 13:10-0500 Systolic blood pressure 105 mm[Hg] Dr. Olive Valera DO Work Phone: [facility] 01-24-2024 12:55-0500 Body height 167.6 cm Babs Marley MD Work Phone: [facility] 01-24-2024 12:55-0500 Diastolic blood pressure 65 mm[Hg] Babs Marley MD Work Phone: [facility] 01-24-2024 12:55-0500 Heart rate 73 /min Babs Marley MD Work Phone: [facility] 01-24-2024 12:55-0500 Systolic blood pressure 124 mm[Hg] Babs Marley MD Work Phone: [facility] 12-23-2023 11:01-0400 Body height 167.6 cm Babs Marley MD Work Phone: [facility] 12-23-2023 11:01-0400 Body mass index (BMI) [Ratio] 16.3 kg/m2 Babs Marley MD Work Phone: [facility] 12-23-2023 11:01-0400 Body weight 45.81 kg Babs Marley MD Work Phone: [facility] 12-23-2023 11:01-0400 Diastolic blood pressure 70 mm[Hg] Babs Marley MD Work Phone: [facility] 12-23-2023 11:01-0400 Heart rate 80 /min Babs Marley MD Work Phone: [facility] 12-23-2023 11:01-0400 Respiratory rate 16 /min Basb Marley MD Work Phone: [facility] 12-23-2023 11:01-0400 SaO2% (BldA) [Mass fraction] 97 % Babs Marley MD Work Phone: [facility] 12-23-2023 11:01-0400 Systolic blood pressure 122 mm[Hg] Babs Marley MD Work Phone: [facility] 02-09-2023 09:15-0500 Diastolic blood pressure 70 mm[Hg] Miroslava Joiner MD Work Phone: [facility] 02-09-2023 09:15-0500 Heart rate 61 /min Miroslava Joiner MD Work Phone: [facility] 02-09-2023 09:15-0500 Respiratory rate 16 /min Miroslava Joiner MD Work Phone: [facility] 02-09-2023 09:15-0500 SaO2% (BldA) [Mass fraction] 100 % Miroslava Joiner MD Work Phone: [facility] 02-09-2023 09:15-0500 Systolic blood pressure 120 mm[Hg] Miroslava Joiner MD Work Phone: [facility] 02-09-2023 08:57-0500 Body temperature 98.29 [degF] Miroslava Joiner MD Work Phone: [facility] 02-09-2023 07:38-0500 Body height 167.6 cm Miroslava Joiner MD Work Phone: [facility] 01-13-2023 13:41-0500 Body height 167.[address] Olive Valera Work Phone: [facility] 01-13-2023 13:41-0500 Body mass index (BMI) [Ratio] 17.7 kg/m2 Dr. Olive Valera Work Phone: 8(787)555-837664 [place] [address] 01-13-2023 13:41-0500 Body temperature 99.3 [degF] Dr. Olive Valera Work Phone: [facility] 01-13-2023 13:41-0500 Body weight 49.[address] Olive Valera Work Phone: [facility] 01-13-2023 13:41-0500 Diastolic blood pressure 53 mm[Hg] Dr. Olive Valera Work Phone: [facility] 01-13-2023 13:41-0500 Heart rate 83 /min Dr. Olive Valera Work Phone: [facility] 01-13-2023 13:41-0500 Respiratory rate 15 /min Dr. Olive Valera Work Phone: [facility] 01-13-2023 13:41-0500 SaO2% (BldA) [Mass fraction] 98 % Dr. Olive Valera Work Phone: [facility] 01-13-2023 13:41-0500 Systolic blood pressure 117 mm[Hg] Dr. Olive Valera Work Phone: [facility] 04-08-2022 14:22-0500 Body temperature 97.3 [degF] Dr. Olive Valera Work Phone: [facility] 04-08-2022 14:22-0500 Diastolic blood pressure 78 mm[Hg] Dr. Olive Valera Work Phone: [facility] 04-08-2022 14:22-0500 Heart rate 66 /min Dr. Olive Valera Work Phone: [facility] 04-08-2022 14:22-0500 Respiratory rate 16 /min Dr. Olive Valera Work Phone: [facility] 04-08-2022 14:22-0500 Systolic blood pressure 124 mm[Hg] Dr. Olive Valera Work Phone: [facility] 04-08-2022 13:52-0500 Body mass index (BMI) [Ratio] 18.1 kg/m2 Dr. Olive Valera Work Phone: [facility] 04-08-2022 13:52-0500 SaO2% (BldA) [Mass fraction] 100 % Dr. Olive Valera Work Phone: [facility] 02-28-2022 08:20-0500 Diastolic blood pressure 74 mm[Hg] Miroslava Joiner MD Work Phone: [facility] 02-28-2022 08:20-0500 Heart rate 67 /min Miroslava Joiner MD Work Phone: [facility] 02-28-2022 08:20-0500 Respiratory rate 13 /min Miroslava Joiner MD Work Phone: [facility] 02-28-2022 08:20-0500 SaO2% (BldA) [Mass fraction] 100 % Miroslava Joiner MD Work Phone: [facility] 02-28-2022 08:20-0500 Systolic blood pressure 127 mm[Hg] Miroslava Joiner MD Work Phone: 6(831)327-965497 [place] [address] 02-28-2022 07:54-0500 Body temperature 97.39 [degF] Miroslava Joiner MD Work Phone: 6(595)214-854397 [place] [address] 02-28-2022 06:36-0500 Body height 167.6 cm Miroslava Joiner MD Work Phone: 6(332)057-073997 [place] [address] 02-28-2022 06:36-0500 Body mass index (BMI) [Ratio] 16.79 kg/m2 Miroslava Joiner MD Work Phone: 8(080)017-229697 [place] [address] 02-28-2022 06:36-0500 Body weight 47.17 kg Miroslava Joiner MD Work Phone: 7(590)965-888497 [place] [address] 12-26-2021 15:25-0400 Body height 167.6 cm Miroslava Joiner MD Work Phone: 7(893)092-180697 [place] [address] 12-26-2021 15:25-0400 Body mass index (BMI) [Ratio] 16.87 kg/m2 Miroslava Joiner MD Work Phone: 1(834)875-329197 [place] [address] 12-26-2021 15:25-0400 Body weight 47.4 kg Miroslava Joiner MD Work Phone: 1(384)709-729197 [place] [address] 12-26-2021 15:25-0400 Diastolic blood pressure 84 mm[Hg] Miroslava Joiner MD Work Phone: 7(682)767-466397 [place] [address] 12-26-2021 15:25-0400 Heart rate 69 /min Miroslava Joiner MD Work Phone: 0(871)589-780397 [place] [address] 12-26-2021 15:25-0400 Systolic blood pressure 137 mm[Hg] Miroslava Joiner MD Work Phone: 9(310)006-928497 [place] [address] 07-11-2021 12:05-0400 Diastolic blood pressure 68 mm[Hg] Miroslava Joiner MD Work Phone: 1(471)054-763400 [place] [address] 07-11-2021 12:05-0400 Heart rate 64 /min Miroslava Joiner MD Work Phone: 1(980)417-166761 [address] 07-11-2021 12:05-0400 Systolic blood pressure 113 mm[Hg] Miroslava Joiner MD Work Phone: 4(501)966-501097 [place] [address] 07-11-2021 12:02-0400 Body height 167.6 cm Miroslava Joiner MD Work Phone: 5(545)722-992397 [place] [address] 07-11-2021 12:02-0400 Body mass index (BMI) [Ratio] 16.93 kg/m2 Miroslava Joiner MD Work Phone: 2(845)381-596061 [address] 07-11-2021 12:02-0400 Body weight 47.58 kg Miroslava Joiner MD Work Phone: 3(625)322-233161 [address] 07-02-2021 17:28-0400 Body mass index (BMI) [Ratio] 17.3 kg/m2 Dr. Olive Valera Work Phone: [facility] Work Phone: 07-02-2021 16:34-0400 Body height 167.[address] Olive Valera Work Phone: [facility] Work Phone: 07-02-2021 16:34-0400 Body weight 48.[address] Olive Valera Work Phone: [facility] Work Phone: 06-19-2021 15:11-0400 Body mass index (BMI) [Ratio] 17.5 kg/m2 Dr. Olive Valera Work Phone: [facility] Work Phone: 06-19-2021 15:11-0400 Body temperature 98.4 [degF] Dr. Olive Valera Work Phone: [facility] Work Phone: 06-19-2021 15:11-0400 Body weight 49.[address] Olive Valera Work Phone: [facility] Work Phone: 06-19-2021 15:11-0400 Diastolic blood pressure 77 mm[Hg] Dr. Olive Valera Work Phone: [facility] [facility] Work Phone: 06-19-2021 15:11-0400 Heart rate 80 /min Dr. Olive Valera Work Phone: [facility] Work Phone: 06-19-2021 15:11-0400 Respiratory rate 14 /min Dr. Olive Valera Work Phone: [facility] Work Phone: 06-19-2021 15:11-0400 SaO2% (BldA) [Mass fraction] 99 % Dr. Olive Valera Work Phone: [facility] Work Phone: 06-19-2021 15:11-0400 Systolic blood pressure 120 mm[Hg] Dr. Olive Valera Work Phone: [facility] Work Phone: 06-06-2021 15:13-0400 Body temperature 97.9 [degF] Miroslava Joiner MD Work Phone: [facility] 06-06-2021 15:13-0400 Diastolic blood pressure 72 mm[Hg] Miroslava Joiner MD Work Phone: [facility] 06-06-2021 15:13-0400 Heart rate 70 /min Miroslava Joiner MD Work Phone: [facility] 06-06-2021 15:13-0400 Respiratory rate 16 /min Miroslava Joiner MD Work Phone: [facility] 06-06-2021 15:13-0400 SaO2% (BldA) [Mass fraction] 97 % Miroslava Joiner MD Work Phone: [facility] 06-06-2021 15:13-0400 Systolic blood pressure 147 mm[Hg] Miroslava Joiner MD Work Phone: [facility] 06-06-2021 05:24-0400 Body mass index (BMI) [Ratio] 19.11 kg/m2 Miroslava Joiner MD Work Phone: [phone] [address] 06-06-2021 05:24-0400 Body weight 53.71 kg Miroslava Joiner MD Work Phone: [phone] [address] 06-04-2021 19:33-0400 Body height 167.6 cm Miroslava Joiner MD Work Phone: [facility] 04-17-2021 14:28-0500 Body temperature 98 [degF] Dr. Olive Valera Work Phone: [facility] Work Phone: 04-17-2021 14:28-0500 Diastolic blood pressure 50 mm[Hg] Dr. Olive Valera Work Phone: [facility] Work Phone: 04-17-2021 14:28-0500 Heart rate 54 /min Dr. Olive Valera Work Phone: [facility] Work Phone: 04-17-2021 14:28-0500 Respiratory rate 16 /min Dr. Olive Valera Work Phone: [facility] Work Phone: 04-17-2021 14:28-0500 SaO2% (BldA) [Mass fraction] 96 % Dr. Olive Valera Work Phone: [facility] Work Phone: 04-17-2021 14:28-0500 Systolic blood pressure 97 mm[Hg] Dr. Olive Valera Work Phone: [facility] Work Phone: 04-17-2021 12:36-0500 Body mass index (BMI) [Ratio] 17.5 kg/m2 Dr. Olive Valera Work Phone: [facility] Work Phone: 04-10-2021 13:23-0500 Body height 167.[address] Olive Valera Work Phone: [facility] Work Phone: 04-10-2021 13:23-0500 Body weight 48.[address] Olive Valera Work Phone: [facility] Work Phone: 03-13-2021 10:10-0500 Body mass index (BMI) [Ratio] 17.6 kg/m2 Dr. Olive Valera Work Phone: [facility] Work Phone: 03-13-2021 10:10-0500 Body temperature 98.1 [degF] Dr. Olive Valera Work Phone: [facility] Work Phone: 03-13-2021 10:10-0500 Body weight 49.[address] Olive Valera Work Phone: [facility] Work Phone: 03-13-2021 10:10-0500 Diastolic blood pressure 68 mm[Hg] Dr. Olive Valera Work Phone: [facility] Work Phone: 03-13-2021 10:10-0500 Heart rate 85 /min Dr. Olive Valera Work Phone: [facility] Work Phone: 03-13-2021 10:10-0500 Respiratory rate 16 /min Dr. Olive Valera Work Phone: [facility] Work Phone: 03-13-2021 10:10-0500 SaO2% (BldA) [Mass fraction] 99 % Dr. Olive Valera Work Phone: [facility] Work Phone: 03-13-2021 10:10-0500 Systolic blood pressure 118 mm[Hg] Dr. Olive Valera Work Phone: [facility] Work Phone: 02-18-2021 10:12-0500 Body temperature 98.3 [degF] Dr. Olive Valera Work Phone: [facility] Work Phone: 02-18-2021 10:12-0500 Diastolic blood pressure 86 mm[Hg] Dr. Olive Valera Work Phone: [facility] Work Phone: 02-18-2021 10:12-0500 Heart rate 86 /min Dr. Olive Valera Work Phone: [facility] Work Phone: 02-18-2021 10:12-0500 Respiratory rate 16 /min Dr. Olive Valera Work Phone: [facility] Work Phone: 02-18-2021 10:12-0500 SaO2% (BldA) [Mass fraction] 98 % Dr. Olive Valera Work Phone: [facility] Work Phone: 02-18-2021 10:12-0500 Systolic blood pressure 136 mm[Hg] Dr. Olive Valera Work Phone: [facility] Work Phone: 02-18-2021 06:09-0500 Body mass index (BMI) [Ratio] 17.3 kg/m2 Dr. Olive Valera Work Phone: [facility] Work Phone: 02-18-2021 06:09-0500 Body weight 48.[address] Olive Valera Work Phone: [facility] Work Phone: Encounters Encounter Date Encounter Type Care Provider Facility Start: 01-18-2025 ambulatory [facility] Facilit y:[facility] Start: 01-11-2025 End: 01-11-2025 ambulatory [facility] Facility:[facility] Start: 01-04-2025 End: 01-04-2025 ambulatory [facility] Facility:[facility] Start: 12-31-2024 ambulatory LOU NEAL FRANKI Facility:[facility] Start: 12-26-2024 End: 12-31-2024 Evaluation and management of inpatient Sonya Treviño MD, MPH Work Phone: [id number] Comment on above: Elevated alkaline ph osphatase level Start: 12-21-2024 End: 12-21-2024 Dr. Michelle Barrera MD -Emergency [facility] Work Phone: Start: 12-21-2024 End: 12-21-2024 Emergency department patient visit Michelle Barrera Facility:[facility] Start: 12-21-2024 End: 12-21-2024 Dr. Robe Zavala MD -[facility] Work Phone: Start: 12-21-2024 End: 12-21-2024 ambulatory Olive Valera Facility:[facility] Start: 12-21-2024 Evaluation and management of inpatient OLIVE VALERA Facility:[facility] Start: 12-14-2024 End: 12-14-2024 Dr. Olive Valera DO Work Phone: -Laboratory Work Phone: Start: 12-14-2024 End: 12-14-2024 ambulatory Gregoryr Donell Facility:[facility] Start: 12-01-2024 ambulatory OLIVE VALERA Facility :[facility] Start: 11-30-[address] Olive Valera DO Work Phone: -Laboratory Work Phone: Start: 11-23-2024 End: 11-29-[address] Olive Valrea DO Work Phone: -Laboratory Work Phone: Start: 11-23-2024 End: 11-29-2024 Dr. Olive Valera DO Work Phone: -Laboratory Work Phone: Start: 11-23-2024 End: 11-29-[address] Olive Valera DO Work Phone: -Laboratory Start: 10-24-2024 End: 10-24-[address] Olive Valera DO Work Phone: -Laboratory Work Phone: Start: 10-24-2024 End: 10-24-2024 Dr. Olive Valera DO Work Phone: -Laboratory Work Phone: Start: 10-24-2024 End: 10-24-[address] Olive Valera DO Work Phone: -Laboratory Start: 10-23-2024 ambulatory OLIVE VALERA Facility :[facility] Start: 10-23-2024 End: 10-23-2024 Subsequent hospital visit by physician Maribel Brooks MD Work Phone: [facility] Comment on above: Arrived Start: 10-15-2024 ambulatory OLIVE VALERA Facility :[facility] Start: 10-10-2024 End: 10-10-2024 Office outpatient visit 40 minutes Babs Marley MD Work Phone: [facility] Comment on above: Liver replaced by tr ansplant; Aftercare following organ transplant; Long-term use of high-risk medication; Therapeutic drug monitoring Start: 10-10-2024 ambulatory OLIVE VALERA Facility :[facility] Start: 09-30-2024 ambulatory Babs Marley Facilit y:[facility] Start: 09-26-2024 End: 09-29-[address] Olive Valera DO Work Phone: -Laboratory Start: 09-26-2024 End: 09-29-2024 Discharged Recurring Babs Marley MD -Laboratory Work Phone: Start: 09-26-2024 End: 09-29-2024 Babs Marley MD -Laboratory Work Phone: Start: 09-21-2024 End: 09-21-2024 Office consultation new/estab patient 80 min Maribel Brooks MD Work Phone: [facility] [place] Comment on above: Ulcerative pancoliti s with other complication (Primary Dx); PSC (primary sclerosing cholangitis); Cancer of sigmoid colon; S/P liver transplant Start: 09-21-2024 ambulatory OLIVE VALERA Facility :[facility] Start: 09-21-2024 End: 09-21-2024 Office outpatient visit 15 minutes Analisa Donovan MD Work Phone: [facility] Comment on above: Fever, unspecified f ever cause (Primary Dx); Abnormal laboratory test; S/P liver transplant; Immunocompromised Start: 09-21-2024 ambulatory OLIVE VALEAR Facility :[facility] Start: 09-05-2024 End: 09-29-[address] Olive Valera DO Work Phone: -Laboratory Work Phone: Start: 09-05-2024 End: 09-29-[address] Olive Valera DO Work Phone: -Laboratory Start: 08-29-2024 End: 08-29-[address] Olive Valera DO Work Phone: -Laboratory Start: 08-29-2024 End: 08-29-[address] Olive Valera DO Work Phone: -Laboratory Work Phone: Start: 08-22-2024 End: 08-22-2024 Office outpatient visit 40 minutes Babs Marley MD Work Phone: [facility] Comment on above: Diarrhea, unspecifie d type (Primary Dx) Start: 08-22-2024 ambulatory OLIVE VALERA Facility :[facility] Start: 08-17-2024 End: 08-17-[address] Robe Zavala MD -[facility] Work Phone: Start: 08-17-2024 End: 08-17-[address] Olive Valera DO Work Phone: [facility] Work Phone: Start: 08-15-[address] Olive Valera DO Work Phone: -Laboratory Work Phone: Start: 08-01-2024 End: 08-09-2024 Evaluation and management of inpatient Sonya Treviño MD, MPH Work Phone: [id number] Comment on above: S/P liver transplant Start: 07-28-2024 End: 07-28-[address] Olive Valera DO Work Phone: [facility] Work Phone: Start: 07-28-2024 End: 07-28-[address] Olive Valera DO Work Phone: -Laboratory Work Phone: Start: 07-21-2024 ambulatory OLIVE VALERA Facility :[facility] Start: 07-13-2024 ambulatory Dalia Goodrich ility:[facility] Start: 07-04-2024 End: 07-04-2024 Office outpatient visit 10 minutes Dalia Thomas MD Work Phone: [facility] Comment on above: Liver replaced by tr ansplant (Primary Dx) Start: 07-04-2024 ambulatory Dalia THOMAS Fac ility:[facility] Start: 06-27-2024 End: 06-29-2024 ambulatory LOU URIBE FRANKI Facility:[facility] Start: 06-27-2024 End: 06-29-[address] Olive Valera DO Work Phone: -Laboratory Work Phone: Start: 06-20-2024 End: 06-20-2024 Office outpatient visit 10 minutes Dalia Thomas MD Work Phone: [facility] Comment on above: Liver replaced by tr ansplant (Primary Dx) Start: 06-20-2024 ambulatory Dalia THOMAS Fac ility:[facility] Start: 06-15-2024 End: 06-15-2024 Office outpatient visit 25 minutes Carmen Castellanos MD Work Phone: [facility] Comment on above: Encounter for long-t erm (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 of antibiotics (Primary Dx); S/P liver transplant; Immunocompromised; At risk for infection transmitted from donor; Biloma; 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 Start: 06-15-2024 ambulatory OLIVE VALERA Facility :[facility] Start: 06-13-2024 End: 06-13-2024 Office outpatient visit 10 minutes Dalia Thomas MD Work Phone: [facility] Comment on above: Liver replaced by tr ansplant (Primary Dx); Aftercare following organ transplant; Immunosuppressed status; High risk medication use Start: 06-13-2024 ambulatory Dalia THOMAS Fac ility:[facility] Start: 06-10-2024 End: 06-10-2024 Telephone encounter [facility] Comment on above: Insurance Start: 05-25-2024 End: 06-10-2024 Evaluation and management of inpatient Dalia THOMAS Facility:[facility] Start: 05-13-2024 ambulatory OLIVE VALERA Facility :[facility] Start: 05-13-2024 End: 05-13-2024 Subsequent hospital visit by physician Jess Gamez MD Work Phone: [facility] Start: 05-12-2024 Encounter for other preprocedural examination [facility] Start: 05-03-2024 End: 05-03-[address] Ernie Pierce MD -[facility] Work Phone: Start: 05-03-2024 End: 05-03-2024 ambulatory Ernie Pierce Facility:[facility] Start: 04-30-2024 Encounter for preprocedural cardiovascular examination [facility] Start: 04-28-2024 End: 04-28-[address] Olive Valera DO Work Phone: [facility] Work Phone: Start: 04-28-2024 End: 04-28-2024 Patient encounter procedure Babs Marley MD -Laboratory Work Phone: Start: 04-27-2024 End: 04-29-2024 Discharged Recurring Babs Marley MD -Laboratory Work Phone: Start: 04-27-2024 End: 04-29-2024 ambulatory [facility] Facility:[facility] Start: 04-14-2024 End: 04-14-2024 ambulatory OLIVE VALERA Facility[facility] Start: 04-14-2024 Encounter for other preprocedural examination JOSUÉ MCLAIN [facility] Start: 04-14-2024 End: 04-14-2024 Patient encounter status Josué Mclain MD Work Phone: [facility] Start: 04-14-2024 End: 04-14-2024 Subsequent hospital visit by physician Josué Mclain MD Work Phone: [facility] Comment on above: PSC (primary scleros ing cholangitis) Start: 04-11-2024 End: 04-11-2024 Patient encounter procedure Julio Hanson DO -[facility] Work Phone: Start: 04-11-2024 End: 04-11-2024 ambulatory Julio Hanson Facility:[facility] Start: 03-29-2024 End: 03-29-2024 Office outpatient new 45 minutes Katia Shelton DO Work Phone: [facility] [place] Comment on above: Abnormal stress test (Primary Dx); PSC (primary sclerosing cholangitis); Ulcerative colitis with complication, unspecified location; Hepatic cirrhosis, unspecified hepatic cirrhosis type, unspecified whether ascites present; Pre-transplant evaluation for liver transplant Start: 03-29-2024 End: 03-29-2024 Patient encounter status Katia Perla Nikita DO Work Phone: [facility] Start: 03-29-2024 ambulatory OLIVE L MORAIMA Facility :[facility] Start: 03-24-2024 ambulatory OLIVE L MORAIMA Facility :[facility] Start: 03-24-2024 End: 03-24-2024 Subsequent hospital visit by physician Babs Marley MD Work Phone: Cardi[facility] Comment on above: Arrived Start: 03-24-2024 Anes nerve muscle td n fascia&bursa forearm wrist BABS MARLEY [facility] Start: 03-24-2024 End: 03-24-2024 Admission to same day surgery center Babs Marley MD Work Phone: [facility] Comment on above: Primary sclerosing c holangitis; Pre-transplant evaluation for liver transplant; Preoperative evaluation to rule out surgical contraindication; High risk surgery, pre-operative cardiovascular examination Start: 03-24-2024 ambulatory OLIVE L MORAIMA Facility :[facility] Start: 03-24-2024 End: 03-24-2024 Patient encounter status Babs Marley MD Work Phone: [facility] Start: 03-24-2024 End: 03-24-2024 Subsequent hospital visit by physician Babs Marley MD Work Phone: [facility] [place] Comment on above: Arrived Start: 03-15-2024 ambulatory OLIVE L MORAIMA Facility :[facility] Start: 03-15-2024 End: 03-15-2024 Clinical Support Encounter Ba Boland MD, PhD Work Phone: [facility] Comment on above: Pre-transplant evalu ation for liver transplant (Primary Dx) Start: 03-15-2024 End: 03-15-2024 Admission to same day surgery center Ba Boland MD, PhD Work Phone: [facility] Start: 03-15-2024 End: 03-15-2024 Office outpatient new 60 minutes Ba Boland MD, PhD Work Phone: [facility] Comment on above: Pre-transplant evalu ation for liver transplant (Primary Dx); PSC (primary sclerosing cholangitis); Primary sclerosing cholangitis; Preoperative evaluation to rule out surgical contraindication; High risk surgery, pre-operative cardiovascular examination Start: 03-15-2024 ambulatory OLIVE L MORAIMA Facility :[facility] Start: 03-15-2024 End: 03-15-2024 Patient encounter status Ba Boland MD, PhD Work Phone: [facility] Start: 03-15-2024 End: 03-15-2024 Subsequent hospital visit by physician Ba Boland MD, PhD Work Phone: [facility] Comment on above: Arrived Start: 02-25-2024 ambulatory OLIVE L MORAIMA Facility :[facility] Start: 02-25-2024 End: 02-25-2024 Subsequent hospital visit by physician aNn Farrar MD, MPH Work Phone: Department of Radiology Comment on above: Arrived Start: 02-25-2024 ambulatory OLIVE L MORAIMA Facility :[facility] Start: 02-18-2024 End: 02-18-[address] Robe Zavala MD -[facility] Work Phone: Start: 02-18-2024 End: 02-18-2024 ambulatory Olive Moraima Facility:[facility] Start: 02-11-[address] Vsihnu Zavala MD -[facility] Start: 02-08-2024 ambulatory Babs Marley Facilit y:[facility] Start: 01-24-2024 ambulatory OLIVE VALERA Facility :[facility] Start: 01-24-2024 End: 01-24-2024 Subsequent hospital visit by physician Babs Marley MD Work Phone: [facility] [place] Comment on above: Arrived Start: 12-29-2023 End: 12-29-2023 Subsequent hospital visit by physician Babs Marley MD Work Phone: [facility] Comment on above: Arrived Start: 12-23-2023 End: 12-23-2023 Office consultation new/estab patient 60 min Babs Marley MD Work Phone: [facility] Gastro[facility] [place] Comment on above: PSC (primary scleros ing cholangitis) (Primary Dx) Start: 03-31-2023 End: 03-31-[address] Olive Valera Work Phone: [facility] Work Phone: Start: 03-31-2023 End: 03-31-[address] Olive Valera Work Phone: [facility] Work Phone: Start: 02-09-2023 End: 02-09-2023 Subsequent hospital visit by physician Miroslava Joiner MD Work Phone: [facility] Start: 01-13-2023 End: 01-13-[address] Olive Valera Work Phone: [facility] Work Phone: Start: 01-06-[address] Olive Valera Work Phone: [facility] Start: 02-28-2022 End: 02-28-2022 Subsequent hospital visit by physician Miroslava Joiner MD Work Phone: [facility] [place] Comment on above: Ulcerative pancoliti s with other complication Start: 12-26-2021 End: 12-26-2021 Office outpatient visit 15 minutes Miorslava Joiner MD Work Phone: [facility]astro[facility] [place] Comment on above: Ulcerative pancoliti s with other complication (Primary Dx); Anal pain; Diarrhea due to malabsorption Start: 07-11-2021 End: 07-17-2021 Postop follow up visit related to original px Miroslava Joiner MD Work Phone: [facility]astro[facility] [place] Comment on above: Carcinoma of sigmoid colon (Primary Dx) Start: 07-02-2021 End: 07-30-[address] [facility] Start: 06-19-2021 End: 06-19-[address] Olive Valera Work Phone: [facility] Start: 06-17-[address] Olive Valera Work Phone: [facility] Start: 06-04-2021 End: 06-06-2021 Evaluation and management of inpatient Miroslava Joiner MD Work Phone: [id number] Comment on above: Ileostomy dysfunctio n Start: 05-31-2021 End: 05-31-[address] [facility] Start: 04-17-[address] Olive Valera Work Phone: [facility] Start: 03-13-2021 End: 03-13-[address] Olive Valera Work Phone: [facility] Start: 02-18-2021 End: 02-18-2021 Emergency department patient visit Dr. Olive Valera Work Phone: [facility]-Emergency Department Start: 02-08-[address] Olive Valera Work Phone: [facility]-Pulmonary Services/Neurology Procedures Date Procedure Procedure Detail Performing Clinician Start: 01-11-2025 Albumin/Globulin ratio Dr. Olive Valera DO Work Phone: Start: 01-11-2025 Basophil percent differential count Dr. Olive Valera DO Work Phone: Start: 01-11-2025 BUN/Creatinine ratio Dr. Olive Valera DO Work Phone: Start: 01-11-2025 Eosinophil percent differential count Dr. Olive Valera DO Work Phone: Start: 01-11-2025 Mean corpuscular hemoglobin concentration determination Dr. Olive Valera DO Work Phone: Start: 01-11-2025 Monocyte percent differential count Dr. Olive Valera DO Work Phone: Start: 01-11-2025 Myelocyte percent differential count Dr. Olive Valera DO Work Phone: Start: 01-11-[address] Olive Valear DO Work Phone: Start: 01-11-2025 Neutrophil percent differential count Dr. Olive Valera DO Work Phone: Start: 01-11-2025 Nucleated red blood cell count procedure Dr. Olive Valera DO Work Phone: Start: 01-11-[address] Olive Valera DO Work Phone: Start: 01-11-2025 Platelet mean volume determination Dr. Ed Valera DO Work Phone: Start: 01-11-[address] Olive alba DO Work Phone: Start: 01-04-[address] Olive alba DO Work Phone: Start: 01-04-2025 Mean corpuscular hemoglobin concentration determination Dr. Olive Valera DO Work Phone: Start: 01-04-[address] Olive Valera DO Work Phone: Start: 01-04-2025 Neutrophil percent differential count Dr. Olive Valera DO Work Phone: Start: 01-04-2025 Platelet mean volume determination Dr. Ed Valera DO Work Phone: Start: 01-04-2025 Serum inorganic phosphate measurement Dr. Olive Valera DO Work Phone: Start: 01-04-[address] Olive Valera DO Work Phone: Start: 12-31-2024 CBC AND ELECTRONIC DIFF Kat B Jubak WATER TREATMENT OPERATOR-FILTER TIP CATCHER Work Phone: Start: 12-31-2024 Complete blood count with white cell differential, automated Kat B Jubak WATER TREATMENT OPERATOR-FILTER TIP CATCHER Work Phone: Start: 12-31-2024 Creatinine blood Terrance Kate MD Work Phone: Start: 12-31-2024 Hepatic function panel Terrance Kate MD Work Phone: Start: 12-31-2024 MANUAL DIFF Kat B Jubak WATER TREATMENT OPERATOR-FILTER TIP CATCHER Work Phone: Start: 12-30-2024 Mri abdomen w/o & w/contrast material Kat B Jubak WATER TREATMENT OPERATOR-FILTER TIP CATCHER Work Phone: Start: 12-30-2024 CBC AND ELECTRONIC DIFF Kat B Jubak WATER TREATMENT OPERATOR-FILTER TIP CATCHER Work Phone: Start: 12-30-2024 Complete blood count with white cell differential, automated Kat B Jubak WATER TREATMENT OPERATOR-FILTER TIP CATCHER Work Phone: Start: 12-30-2024 Creatinine blood Terrance Kate MD Work Phone: Start: 12-30-2024 Hepatic function panel Terrance Kate MD Work Phone: Start: 12-30-2024 MANUAL DIFF Akt B Jubak WATER TREATMENT OPERATOR-FILTER TIP CATCHER Work Phone: Start: 12-29-2024 Insj tunneled cvc w/o subq port/linen keeper age 4 yr/> Marcos Turner MD Work Phone: Start: 12-29-2024 Bilirubin direct Terrance Kate MD Work Phone: Start: 12-29-2024 CBC AND ELECTRONIC DIFF Kat B Jubak WATER TREATMENT OPERATOR-FILTER TIP CATCHER Work Phone: Start: 12-29-2024 Complete blood count with white cell differential, automated Kat B Jubak WATER TREATMENT OPERATOR-FILTER TIP CATCHER Work Phone: Start: 12-29-2024 Drug screen quantitative tacrolimus Jessica Wilkinson PA-C Work Phone: Start: 12-29-2024 MANUAL DIFF Akt B Jubak WATER TREATMENT OPERATOR-FILTER TIP CATCHER Work Phone: Start: 12-28-2024 DIAGNOSTIC UPPER ENDOSCOPY Perlita Jimbo Armijo WATER TREATMENT OPERATOR-FILTER TIP CATCHER Work Phone: Start: 12-28-2024 POUCHOSCOPY Miroslava Joiner MD Work Phone: Start: 12-28-2024 Creatinine blood Terrance Kate MD Work Phone: Start: 12-28-2024 ELECTRONIC DIFF Kat B Jubak WATER TREATMENT OPERATOR-FILTER TIP CATCHER Work Phone: Start: 12-28-2024 Hepatic function panel Terrance Kate MD Work Phone: Start: 12-28-2024 Iadna nos quantification each organism Kat B Jubak WATER TREATMENT OPERATOR-FILTER TIP CATCHER Work Phone: Start: 12-28-2024 MANUAL DIFF Kat B Jubak WATER TREATMENT OPERATOR-FILTER TIP CATCHER Work Phone: Start: 12-27-2024 Us abdominal real time w/image limited Kat B Jubak WATER TREATMENT OPERATOR-FILTER TIP CATCHER Work Phone: Start: 12-27-2024 Creatinine blood Terrance Kate MD Work Phone: Start: 12-27-2024 ELECTRONIC DIFF Kat Jacksonlexjoey WATER TREATMENT OPERATOR-FILTER TIP CATCHER Work Phone: Start: 12-27-2024 Hepatic function panel Terrance Kate MD Work Phone: Start: 12-27-2024 MANUAL DIFF Kat Ward Stevenson WATER TREATMENT OPERATOR-FILTER TIP CATCHER Work Phone: Start: 12-27-2024 End: 12-27-2024 Transfusion of packed red blood cells Terrance Kate MD Work Phone: Start: 12-26-2024 End: 12-27-2024 Transfusion of packed red blood cells Terrance Kate MD Work Phone: Start: 12-26-2024 Antibody screen Sonya Treviño MD, MPH Work Phone: Start: 12-26-2024 EXTRA MICRO Terrance Kate MD Work Phone: Start: 12-26-2024 URINALYSIS REFLEX TO CULTURE Terrance mazariegos MD Work Phone: Start: 12-26-2024 Urnls dip stick/tablet reagent auto microscopy Terrance Kate MD Work Phone: Start: 12-26-2024 Antibody screen OLIVE VALERA Comment on above: Performed By: #### XM ####[facility] (DEFAULT)[address] [place] [id number] Start: 12-26-2024 Blood typing serologic abo Terrance carmichael MD Work Phone: Start: 12-26-2024 Cul prsmptv pthgnc organism scrn w/colony estimj Meagan Lewis WATER TREATMENT OPERATOR-GSA COORDINATOR Work Phone: Start: 12-26-2024 PREPARE TO TRANSFUSE RED BLOOD CELLS Terrance Kate MD Work Phone: Start: 12-26-2024 End: 12-26-2024 Bilirubin direct Terrance Kate MD Work Phone: Start: 12-26-2024 CBC AND ELECTRONIC DIFF Terrance wang MD Work Phone: Start: 12-26-2024 Complete blood count with white cell differential, automated Terrance Kate MD Work Phone: Start: 12-26-2024 MANUAL DIFF Terrance Kate MD Work Phone: Start: 12-21-2024 Urine microscopy: red cells Dr. Olive Rutherford DO Work Phone: Start: 12-21-2024 Urnls dip stick/tablet reagent auto microscopy Dr. Olive Valera DO Work Phone: Start: 12-21-2024 Measurement of occult blood in stool specimen using immunoassay Dr. Olive Valera DO Work Phone: Start: 12-21-2024 Calculation of international normalized ratio Dr. Olive Valera DO Work Phone: Start: 12-21-2024 End: 12-21-[address] Olive Valera DO Work Phone: Start: 12-21-2024 End: 12-21-2024 Mean corpuscular hemoglobin concentration determination Dr. Olive Valera DO Work Phone: Start: 12-21-2024 End: 12-21-[address] Olive Valera DO Work Phone: Start: 12-21-2024 End: 12-21-2024 Neutrophil percent differential count Dr. Olive Valera DO Work Phone: Start: 12-21-2024 End: 12-21-2024 Platelet mean volume determination Dr. Ed Valera DO Work Phone: Start: 12-21-[address] Ed Valera DO Work Phone: Start: 12-21-2024 Ct abdomen & pelvis w/contrast material Dr. Olive Valera DO Work Phone: Start: 12-21-[address] Olive alba DO Work Phone: Start: 12-21-2024 Serum inorganic phosphate measurement Dr. Olive Valera DO Work Phone: Start: 12-21-[address] Olive Valera DO Work Phone: Start: 12-14-[address] Olive alba DO Work Phone: Start: 12-14-2024 Mean corpuscular hemoglobin concentration determination Dr. Olive Valera DO Work Phone: Start: 12-14-[address] Olive Valera DO Work Phone: Start: 12-14-2024 Neutrophil percent differential count Dr. Olive Valera DO Work Phone: Start: 12-14-2024 Platelet mean volume determination Dr. Ed Valera DO Work Phone: Start: 12-14-2024 Serum inorganic phosphate measurement Dr. Olive Valera DO Work Phone: Start: 12-14-[address] Olive Valera DO Work Phone: Start: 12-07-2024 Myelocyte percent differential count Dr. Olive Valera DO Work Phone: Start: 12-07-[address] Olive Valera DO Work Phone: Start: 12-07-2024 Total iron binding capacity measurement Dr. Olive Valera DO Work Phone: Start: 11-30-2024 Neutrophil percent differential count Dr. Olive Valera DO Work Phone: Start: 11-30-2024 Serum inorganic phosphate measurement Dr. Olive Valera DO Work Phone: Start: 11-23-[address] Olive alba DO Work Phone: Comment on above: CMV DNA detected.The quantitative range of this assay is 200 to 1 millionIU/mL. Start: 11-23-2024 Mean corpuscular hemoglobin concentration determination Dr. Olive Valera DO Work Phone: Start: 11-23-[address] Olive Valera DO Work Phone: Start: 11-23-2024 Neutrophil percent differential count Dr. Olive Valera DO Work Phone: Start: 11-23-2024 Platelet mean volume determination Dr. Ed Valera DO Work Phone: Start: 11-23-[address] Olive Valera DO Work Phone: Comment on above: Test Ordered: [id number] HBV Real-Time PCR, QuantHBV IU/mL Note: IU/mL CB HBV DNA not detected Reference Range: .log10 HBV IU/mL CB Units of Measure: log10 IU/mL Reference Range: .Unable to calculate result since non-numeric resultobtained for component test.Test Information: Comment CB Reference Range: .The reportable range for this assay is 10 IU/mL to 1billion IU/mL.Performed at: [address] [id number] Director: Red Graham PhD, Phone: [phone] Start: 11-23-[address] Olive alba DO Work Phone: Start: 11-23-2024 Serum inorganic phosphate measurement Dr. Olive Valera DO Work Phone: Comment on above: Previous reported result: 3.0 mg/dLEdite d by: AUTOINS on 11/23/24:1145 AMENDED REPORT 11/23/24 1145 PHOS previously reported as: 3.0 mg/dL Start: 11-23-[address] Olive Valera DO Work Phone: Comment on above: Target steady state trough concentration forTacrolimus varies based on type of organ transplantimmunosuppressive protocol and other patient specificfactors. Tacrolimus trough concentrations should beinterpreted in conjunction with clinical assessmentsof rejection and tolerability. Values obtained withdifferent assay methods cannot be used interchangeablydue to differences in assay methods and cross-reactivtywith metabolites, nor should correction factors beapplied. Therefore, consistent use of one assay forindividual patients is recommended.Detection Limit = 0.5 ng/mLPerformed by LC-MS/MS technology. Start: 11-23-2024 Total cholesterol:HDL ratio measurement Dr. Olive Valera DO Work Phone: Start: 11-23-[address] Olive alba DO Work Phone: Start: 11-02-2024 Nucleated red blood cell count procedure Dr. Olive Valera DO Work Phone: Start: 10-24-[address] Olive alba DO Work Phone: Comment on above: The quantitative range of this assay is 200 to 1 millionIU/mL. Start: 10-24-2024 Mean corpuscular hemoglobin concentration determination Dr. Olive Valera DO Work Phone: Start: 10-24-[address] Olive Valera DO Work Phone: Start: 10-24-2024 Nucleated red blood cell count procedure Dr. Olive Valera DO Work Phone: Start: 10-24-2024 Platelet mean volume determination Dr. Ed Valera DO Work Phone: Start: 10-24-[address] Olive Valera DO Work Phone: Comment on above: Test Ordered: [id number] Phosphatidylethanol (PEth)PHOSPHATIDYLETHANOL Negative MX Reference Range: .Phosphatidylethanol (PEth) Negative ng/mL MX Reference Range: .Analyzed compound: PEth 16:0/18:1. 2-gfwbllvis-9-ookigc-bk-mphtgme-3-phosphoethanol.Analysis performed by Liquid Chromatography withTandem Mass Spectrometry (LC/MS/MS).Detection limit: 20 ng/mLPEth levels in excess of 20 ng/mL are considered evidenceof moderate to heavy ethanol consumption. However,the Center for Substance Abuse Treatment (CSAT) advisescaution in interpretation and use of biomarkers aloneto assess alcohol use. Results should be interpretedin the context of all available clinical and behavioralinformation.Reference: Substance Abuse and Mental Health Services Administration (2012). The Role of Biomarkers in the Treatment of Alcohol Use Disorders, 2012 Revision. Advisory, Volume 11, Issue 2.This test was developed and its performance characteristicsdetermined by [facility]. It has not been cleared or approvedby the Food and Drug Administration.Performed at: [facility] [place] [id number] Director: Clau Abdalla [facility], Phone: [phone] at: [facility] [id number] Director: Red Graham PhD, Phone: [phone] Start: 10-24-2024 Serum inorganic phosphate measurement Dr. Olive Valera DO Work Phone: Start: 10-24-[address] Olive Valera DO Work Phone: Comment on above: Target steady state trough concentration forTacrolimus varies based on type of organ transplantimmunosuppressive protocol and other patient specificfactors. Tacrolimus trough concentrations should beinterpreted in conjunction with clinical assessmentsof rejection and tolerability. Values obtained withdifferent assay methods cannot be used interchangeablydue to differences in assay methods and cross-reactivtywith metabolites, nor should correction factors beapplied. Therefore, consistent use of one assay forindividual patients is recommended.Detection Limit = 0.5 ng/mLPerformed by LC-MS/MS technology. Start: 10-17-2024 Lymphocyte percent differential count Dr. Olive Valera DO Work Phone: Start: 10-12-[address] Olive alba DO Work Phone: Start: 10-10-2024 CBC AND ELECTRONIC DIFF Babs Marley MD Work Phone: Start: 10-10-2024 Complete blood count with white cell differential, automated Babs Marley MD Work Phone: Start: 10-10-2024 Renal function panel Babs Marley MD Work Phone: Start: 09-26-[address] Olive alba DO Work Phone: Comment on above: No CMV DNA detected.The quantitative ran ge of this assay is 200 to 1 millionIU/mL. Start: 09-26-2024 Mean corpuscular hemoglobin concentration determination Dr. Olive Valera DO Work Phone: Start: 09-26-[address] Olive Valera DO Work Phone: Start: 09-26-2024 Nucleated red blood cell count procedure Dr. Olive Valera DO Work Phone: Start: 09-26-2024 Platelet mean volume determination Dr. Ed Valera DO Work Phone: Start: 09-26-[address] Olive Valera DO Work Phone: Comment on above: Test Ordered: [id number] Phosphatidylethanol (PEth)PHOSPHATIDYLETHANOL Negative MX Reference Range: .Phosphatidylethanol (PEth) Negative ng/mL MX Reference Range: .Analyzed compound: PEth 16:0/18:1. 9-wcqhaztsj-4-qxdbcd-hm-xlvrnnx-3-phosphoethanol.Analysis performed by Liquid Chromatography withTandem Mass Spectrometry (LC/MS/MS).Detection limit: 20 ng/mLPEth levels in excess of 20 ng/mL are considered evidenceof moderate to heavy ethanol consumption. However,the Center for Substance Abuse Treatment (CSAT) advisescaution in interpretation and use of biomarkers aloneto assess alcohol use. Results should be interpretedin the context of all available clinical and behavioralinformation.Reference: Substance Abuse and Mental Health Services Administration (2012). The Role of Biomarkers in the Treatment of Alcohol Use Disorders, 2012 Revision. Advisory, Volume 11, Issue 2.This test was developed and its performance characteristicsdetermined by [facility]. It has not been cleared or approvedby the Food and Drug Administration.Performed at: [facility] [address] [id number] Director: Clau Abdalla [facility], Phone: [phone] at: [facility] [id number] Director: Red Graham PhD, Phone: [phone] Start: 09-26-[address] inorganic phosphate measurement Dr[address] Olive Valera DO Work Phone: Start: 09-26-[address] Olive Valera DO Work Phone: Comment on above: Target steady state trough concentration forTacrolimus varies based on type of organ transplantimmunosuppressive protocol and other patient specificfactors. Tacrolimus trough concentrations should beinterpreted in conjunction with clinical assessmentsof rejection and tolerability. Values obtained withdifferent assay methods cannot be used interchangeablydue to differences in assay methods and cross-reactivtywith metabolites, nor should correction factors beapplied. Therefore, consistent use of one assay forindividual patients is recommended.Detection Limit = 0.5 ng/mLPerformed by LC-MS/MS technology. Start: 09-09-[address] Olive Valera DO Work Phone: Comment on above: Test Ordered: [id number] Q Fever Antibodies, IgGQ Fever Phase I 1:128 [H ] BN Reference Range: Neg:<1:16Q Fever Phase II Negative BN Reference Range: Neg:<1:16Note: Four-fold increases between paired sera arerecommended to demonstrate recent infection.Performed at: [facility] [address] [id number] Director: Sergio Machado MD, Phone: [phone] at: [address] [id number] Director: Red Graham PhD, Phone: [phone] Start: 09-05-[address] Olive alba DO Work Phone: Comment on above: No CMV DNA detected.The quantitative ran ge of this assay is 200 to 1 millionIU/mL. Start: 09-05-[address] phosphate measurement [address] Olive Valera DO Work Phone: Start: 09-05-[address] Olive Valera DO Work Phone: Comment on above: Target steady state trough concentration forTacrolimus varies based on type of organ transplantimmunosuppressive protocol and other patient specificfactors. Tacrolimus trough concentrations should beinterpreted in conjunction with clinical assessmentsof rejection and tolerability. Values obtained withdifferent assay methods cannot be used interchangeablydue to differences in assay methods and cross-reactivtywith metabolites, nor should correction factors beapplied. Therefore, consistent use of one assay forindividual patients is recommended.Detection Limit = 0.5 ng/mLPerformed by LC-MS/MS technology. Start: 08-29-[address] phosphate measurement [address] Olive Valera DO Work Phone: Start: 08-29-[address] Olive Valera DO Work Phone: Comment on above: Target steady state trough concentration forTacrolimus varies based on type of organ transplantimmunosuppressive protocol and other patient specificfactors. Tacrolimus trough concentrations should beinterpreted in conjunction with clinical assessmentsof rejection and tolerability. Values obtained withdifferent assay methods cannot be used interchangeablydue to differences in assay methods and cross-reactivtywith metabolites, nor should correction factors beapplied. Therefore, consistent use of one assay forindividual patients is recommended.Detection Limit = 0.5 ng/mLPerformed by LC-MS/MS technology. Start: 08-25-[address] Olive Valera DO Work Phone: Comment on above: Target steady state trough concentration forTacrolimus varies based on type of organ transplantimmunosuppressive protocol and other patient specificfactors. Tacrolimus trough concentrations should beinterpreted in conjunction with clinical assessmentsof rejection and tolerability. Values obtained withdifferent assay methods cannot be used interchangeablydue to differences in assay methods and cross-reactivtywith metabolites, nor should correction factors beapplied. Therefore, consistent use of one assay forindividual patients is recommended.Detection Limit = 0.5 ng/mLPerformed by LC-MS/MS technology. Start: 08-22-2024 Lipid 1996 panel - Serum or Plasma Rogerio Marley MD Work Phone: Start: 08-15-[address] phosphate measurement [address] Olive Valera DO Work Phone: Start: 08-11-[address] Olive Valera DO Work Phone: Comment on above: Test Ordered: [id number] Phosphatidylethanol (PEth)PHOSPHATIDYLETHANOL Negative MX Reference Range: .Phosphatidylethanol (PEth) Negative ng/mL MX Reference Range: .Analyzed compound: PEth 16:0/18:1. 7-giyfquyln-2-zywxzm-km-fyghlev-3-phosphoethanol.Analysis performed by Liquid Chromatography withTandem Mass Spectrometry (LC/MS/MS).Detection limit: 20 ng/mLPEth levels in excess of 20 ng/mL are considered evidenceof moderate to heavy ethanol consumption. However,the Center for Substance Abuse Treatment (CSAT) advisescaution in interpretation and use of biomarkers aloneto assess alcohol use. Results should be interpretedin the context of all available clinical and behavioralinformation.Reference: Substance Abuse and Mental Health Services Administration (2012). The Role of Biomarkers in the Treatment of Alcohol Use Disorders, 2012 Revision. Advisory, Volume 11, Issue 2.This test was developed and its performance characteristicsdetermined by [facility]. It has not been cleared or approvedby the Food and Drug Administration.Performed at: [facility] [address] [id number] Director: Clau Abdalla [facility], Phone: [phone] at: [address] [id number] Director: Red Graham PhD, Phone: [phone] Start: 08-11-[address] Olive Valera DO Work Phone: Comment on above: Target steady state trough concentration forTacrolimus varies based on type of organ transplantimmunosuppressive protocol and other patient specificfactors. Tacrolimus trough concentrations should beinterpreted in conjunction with clinical assessmentsof rejection and tolerability. Values obtained withdifferent assay methods cannot be used interchangeablydue to differences in assay methods and cross-reactivtywith metabolites, nor should correction factors beapplied. Therefore, consistent use of one assay forindividual patients is recommended.Detection Limit = 0.5 ng/mLPerformed by LC-MS/MS technology. Start: 08-11-[address] Olive Valera DO Work Phone: Start: 08-11-2024 Total iron binding capacity measurement Dr. Olive Valera DO Work Phone: Start: 08-09-2024 Bx abdl/retroperitoneal mass prq needle Adriana Myers MD Start: 08-09-2024 GENERAL PROCEDURE Nestor Hernandez MD Work Phone: Start: 08-09-2024 Bilirubin direct Perlita A Armijo WATER TREATMENT OPERATOR-FILTER TIP CATCHER Work Phone: Start: 08-09-2024 CBC AND ELECTRONIC DIFF Les Bosch MD Work Phone: Start: 08-09-2024 Complete blood count with white cell differential, automated Les Bosch MD Work Phone: Start: 08-09-2024 Drug screen quantitative tacrolimus Morg an E Errol PA-C Work Phone: Start: 08-09-2024 MANUAL DIFF Les Bosch MD Work Phone: Start: 08-08-2024 Ct thorax w/o contrast material Elizabeth Barcenas WATER TREATMENT OPERATOR-FILTER TIP CATCHER Work Phone: Start: 08-08-2024 Bilirubin direct Perlita A Armijo WATER TREATMENT OPERATOR-FILTER TIP CATCHER Work Phone: Start: 08-08-2024 CBC AND ELECTRONIC DIFF Les Bosch MD Work Phone: Start: 08-08-2024 Complete blood count with white cell differential, automated Les Bosch MD Work Phone: Start: 08-08-2024 Drug screen quantitative tacrolimus Morg an E Hico PA-C Work Phone: Start: 08-07-2024 Bilirubin direct Perlita A Armijo WATER TREATMENT OPERATOR-FILTER TIP CATCHER Work Phone: Start: 08-07-2024 CBC AND ELECTRONIC DIFF Les Bosch MD Work Phone: Start: 08-07-2024 Complete blood count with white cell differential, automated Les Bosch MD Work Phone: Start: 08-07-2024 Drug screen quantitative tacrolimus Morg an E Hico PA-C Work Phone: Start: 08-06-2024 Bilirubin direct Perlita Jimbo Adrián WATER TREATMENT OPERATOR-FILTER TIP CATCHER Work Phone: Start: 08-06-2024 CBC AND ELECTRONIC DIFF Les Bosch MD Work Phone: Start: 08-06-2024 Complete blood count with white cell differential, hair Bosch MD Work Phone: Start: 08-06-2024 Drug screen quantitative tacrolimus Morg an E Errol PA-C Work Phone: Start: 08-06-2024 MANUAL DIFF Les Bosch MD Work Phone: Start: 08-05-2024 Mri abdomen w/o contrast material Leroy Holland Hico PA-C Work Phone: Start: 08-05-2024 Inf agent det nucleic acid clostridium amp probe Cici Key PA-C Work Phone: Start: 08-05-2024 Bilirubin direct Perlita Jimbo Adrián WATER TREATMENT OPERATOR-FILTER TIP CATCHER Work Phone: Start: 08-05-2024 CBC AND ELECTRONIC DIFF Les Bosch MD Work Phone: Start: 08-05-2024 Complete blood count with white cell differential, hair Bosch MD Work Phone: Start: 08-05-2024 Drug screen quantitative tacrolimus Morg an E Hico PA-C Work Phone: Start: 08-05-2024 Iaad ia histoplasm capsulatum Carmen schuster MD Work Phone: Start: 08-04-2024 Bilirubin direct Perlita Armijo WATER TREATMENT OPERATOR-FILTER TIP CATCHER Work Phone: Start: 08-04-2024 CBC AND ELECTRONIC DIFF Les Bosch MD Work Phone: Start: 08-04-2024 Complete blood count with white cell differential, automated Les Bosch MD Work Phone: Start: 08-04-2024 Drug screen quantitative tacrolimus Morg an E Errol PA-C Work Phone: Start: 08-03-2024 POUCHOSCOPY Perlita Armijo WATER TREATMENT OPERATOR-FILTER TIP CATCHER Work Phone: Start: 08-03-2024 Level iv surg pathology gross&microscopic exam Dipak Banerjee MD Work Phone: Start: 08-03-2024 Drug screen quantitative tacrolimus Morg an E Hico PA-C Work Phone: Start: 08-03-2024 Bilirubin direct Perlita Armijo WATER TREATMENT OPERATOR-FILTER TIP CATCHER Work Phone: Start: 08-03-2024 CBC AND ELECTRONIC DIFF Les Bosch MD Work Phone: Start: 08-03-2024 Complete blood count with white cell differential, automated Les Bosch MD Work Phone: Start: 08-03-2024 Iadna nos quantification each organism Leroy Norton PA-C Work Phone: Start: 08-02-2024 Ct abdomen & pelvis w/o contrast material Leroy Norton PA-C Work Phone: Start: 08-02-2024 H/O: liver recipient S/P liver transplant Sonya Treviño MD, MPH Work Phone: Start: 08-02-2024 Respiratory virus DNA+RNA [Identifier] in Unspecified specimen by JACKY with probe detection Leroy Lords PA-C Work Phone: Start: 08-02-2024 Drug screen quantitative tacrolimus Morg an E Errol PA-C Work Phone: Start: 08-02-2024 Nfct agent dna/rna gastrointestinal pathogen Les Bosch MD Work Phone: Start: 08-02-2024 Assay of magnesium Les Bosch MD Work Phone: Start: 08-02-2024 CBC AND ELECTRONIC DIFF Les Bosch MD Work Phone: Start: 08-02-2024 Complete blood count with white cell differential, automated Les Bosch MD Work Phone: Start: 08-01-2024 EXTRA MICRO Les Bosch MD Work Phone: Start: 08-01-2024 URINALYSIS REFLEX TO CULTURE Les segura MD Work Phone: Start: 08-01-2024 Bilirubin direct Les Bosch MD Work Phone: Start: 08-01-2024 NAEEM AURIS SCREEN BY PCR Les mallory MD Work Phone: Start: 08-01-2024 CBC AND ELECTRONIC DIFF Les Bosch MD Work Phone: Start: 08-01-2024 Complete blood count with white cell differential, automated Les Bosch MD Work Phone: Start: 08-01-2024 End: 08-01-2024 Cul prsmptv pthgnc organism scrn w/colony estimj Les Bosch MD Work Phone: Start: 08-01-2024 FUNGAL ID/CARTER Les Bosch MD Work Phone: Start: 08-01-2024 MANUAL DIFF Les Bosch MD Work Phone: Start: 07-28-2024 Serum inorganic phosphate measurement Dr. Olive Valera DO Work Phone: Start: 07-28-[address] Olive Valera DO Work Phone: Comment on above: Target steady state trough concentration forTacrolimus varies based on type of organ transplantimmunosuppressive protocol and other patient specificfactors. Tacrolimus trough concentrations should beinterpreted in conjunction with clinical assessmentsof rejection and tolerability. Values obtained withdifferent assay methods cannot be used interchangeablydue to differences in assay methods and cross-reactivtywith metabolites, nor should correction factors beapplied. Therefore, consistent use of one assay forindividual patients is recommended.Detection Limit = 0.5 ng/mLPerformed by LC-MS/MS technology. Start: 07-26-[address] Olive Valera DO Work Phone: Comment on above: Target steady state trough concentration forTacrolimus varies based on type of organ transplantimmunosuppressive protocol and other patient specificfactors. Tacrolimus trough concentrations should beinterpreted in conjunction with clinical assessmentsof rejection and tolerability. Values obtained withdifferent assay methods cannot be used interchangeablydue to differences in assay methods and cross-reactivtywith metabolites, nor should correction factors beapplied. Therefore, consistent use of one assay forindividual patients is recommended.Detection Limit = 0.5 ng/mLPerformed by LC-MS/MS technology. Start: 07-11-[address] Olive Valera DO Work Phone: Comment on above: Test Ordered: [id number] Phosphatidylethanol (PEth)PHOSPHATIDYLETHANOL Negative MX Reference Range: .Phosphatidylethanol (PEth) Negative ng/mL MX Reference Range: .Analyzed compound: PEth 16:0/18:1. 6-jburmulsu-5-yfmpdl-hp-yarwiok-3-phosphoethanol.Analysis performed by Liquid Chromatography withTandem Mass Spectrometry (LC/MS/MS).Detection limit: 20 ng/mLPEth levels in excess of 20 ng/mL are considered evidenceof moderate to heavy ethanol consumption. However,the [facility] (CSAT) advisescaution in interpretation and use of biomarkers aloneto assess alcohol use. Results should be interpretedin the context of all available clinical and behavioralinformation.Reference: Substance Abuse and Mental Health Services Administration (2012). The Role of Biomarkers in the Treatment of Alcohol Use Disorders, 2012 Revision. Advisory, Volume 11, Issue 2.This test was developed and its performance characteristicsdetermined by [facility] [employer]. It has not been cleared or approvedby the Food and Drug Administration.Performed at: [facility] [address] [id number] Director: Clau Abdalla [facility], Phone: [phone] at: [facility] [address] [id number] Director: Red Graham PhD, Phone: [phone] Start: 06-27-2024 Flow cytometry cell surf marker techl only 1st Dr. Olive Valera DO Work Phone: Start: 06-27-2024 Serum inorganic phosphate measurement Dr. Olive Valera DO Work Phone: Start: 06-27-[address] Olive Valera DO Work Phone: Comment on above: Target steady state trough concentration forTacrolimus varies based on type of organ transplantimmunosuppressive protocol and other patient specificfactors. Tacrolimus trough concentrations should beinterpreted in conjunction with clinical assessmentsof rejection and tolerability. Values obtained withdifferent assay methods cannot be used interchangeablydue to differences in assay methods and cross-reactivtywith metabolites, nor should correction factors beapplied. Therefore, consistent use of one assay forindividual patients is recommended.Detection Limit = 0.5 ng/mLPerformed by LC-MS/MS technology Please note reference interval change Start: 06-23-2024 Iadna hepatitis c quant & reverse manufacturing quality manager Dr. Olive Valera DO Work Phone: Comment on above: Test not performed Start: 06-23-2024 PCR test for HIV 1 Dr. Olive Valera DO Work Phone: Comment on above: HIV-1 RNA not detectedThe reportable ran ge for this assay is 20 to 10,000,000copies HIV-1 RNA/mL. Start: 06-23-[address] Olive Valera DO Work Phone: Comment on above: TEST RESULTS LIMITSHBV Real-Time PCR, Qu ant HBV IU/mL HBV DNA not detected IU/mL log10 HBV IU/mL Unable to calculate result since non-numeric result obtained for component test. Test Information: The reportable range for this assay is 10 IU/mL to 1 billion IU/mL TESTING PERFORMED AT [facility]. ORIGINAL REPORT ON FILE IN LAB CONTAINS ADDITIONAL TEST SITE INFORMATION. Start: 06-03-2024 Merfaiza VALERA Comment on above: Performed By: #### BFLD ####[facility] (DEFAULT)[address] [place] [address] Start: 06-03-2024 Antibody screen OLIVE VALERA Comment on above: Performed By: #### XM ####[facility] (DEFAULT)[address] [place] [address] Start: 05-25-2024 Antibody screen OLIVE VALERA Comment on above: Result Comment: @05/25/24 04:48 by HI12: Performed By: #### I [id number], XM ####[facility] (DEFAULT)[address] [place] [address] Start: 05-13-2024 Flexible sigmoidoscopy Babs Marley MD Work Phone: Start: 04-14-2024 L hrt cath w/njx l ventriculography img s&i Katia Shelton DO Work Phone: Start: 04-14-2024 Cardiac catheterization Katia Pickering O Work Phone: Start: 04-14-2024 Prothrombin time Vernon Pedroza MD Work Phone: Start: 04-14-2024 Ecg routine ecg w/least 12 lds w/i&r Vernon Pedroza MD Work Phone: Start: 03-24-2024 Echocardiography OLIVE VALERA Start: 03-24-2024 Echo tthrc r-t 2d w/wo m-mode complete rest&st Babs Marley MD Work Phone: Start: 03-24-2024 End: 03-24-2024 Pulmonary stress testing Babs Marley MD Work Phone: Start: 03-24-2024 Arterial puncture withdrawal blood dx Babs Marley MD Work Phone: Start: 03-24-2024 Blood gases any combination ph pco2 po2 co2 hco3 Babs Marley MD Work Phone: Start: 03-24-2024 Echo tthrc r-t 2d w/wom-mode compl spec&colr d Babs Marley MD Work Phone: Start: 03-15-2024 Antibody screen Ba Boland MD, PhD Work Phone: Start: 03-15-2024 Radiologic exam chest 2 views Babs hernandez MD Work Phone: Start: 03-15-2024 Antibody screen OLIVE VALERA Comment on above: Performed By: #### XM ####[facility] (DEFAULT[facility] [place] [address] Start: 03-15-2024 End: 03-15-2024 Albumin serum plasma/whole blood Babs Marley MD Work Phone: Comment on above: Order Comment: Transplant coordinators s hould order for males over 50 years old Result Comment: This test was performed on the [employer] Immunoassay platform which is a 2-step sandwich chemiluminescent immunoassay. It is important to note that assays using different manufacturers and/or methods may not be comparable. Performed By: #### E PSA, CA199 ####[facility] (DEFAULT)[address] [place] [address] Start: 03-15-2024 Assay of ethanol Babs Marley MD Work Phone: Start: 03-15-2024 CBC AND ELECTRONIC DIFF Babs Marley MD Work Phone: Start: 03-15-2024 Complete blood count with white cell differential, automated Babs Marley MD Work Phone: Start: 03-15-2024 End: 03-15-2024 Hepatitis b surf antibody hbsab Babs Marley MD Work Phone: Start: 03-15-2024 Iaad ia hepatitis b surface antigen Gregory Marley MD Work Phone: Start: 02-25-2024 SURG PATH ADD ON (PATH HAS SPECIMEN) Nan Farrar MD, MPH Work Phone: Start: 02-25-2024 TUMOR HOTSPOT MUTATION PANEL, REQUEST Nan Farrar MD, MPH Work Phone: Start: 02-25-2024 ERCP Babs Marley MD Work Phone: Start: 02-25-2024 DNA EXTRACTION, TISSUE Nan Farrar MD, MPH Work Phone: Start: 02-25-2024 TUMOR HOTSPOT MUTATION PANEL, ACCESSIONING Nan Farrar MD, MPH Work Phone: Start: 02-11-[address] Olive Valera DO Work Phone: Start: 02-11-2024 Measurement of renal function Dr. Olive Valera DO Work Phone: Start: 02-11-2024 Nucleated red blood cell count procedure Dr. Olive Valera DO Work Phone: Start: 02-11-2024 Total iron binding capacity measurement Dr. Olive Valera DO Work Phone: Start: 01-24-2024 Mri abdomen w/o & w/contrast material Babs Marley MD Work Phone: Start: 12-29-2023 MRI ABDOMEN/ABDOMEN-PELVIS (INTERPRETATION - OUTSIDE IMAGE) Babs Marley MD Work Phone: Start: 05-14-[address] Olive wilson DO Work Phone: Comment on above: Nonsmokers <3.9 Smokers <5.6[employer] Electrochemiluminescence Immunoassay(ECLIA)Values obtained with different assay methods or kitscannot be used interchangeably. Results cannot beinterpreted as absolute evidence of the presence orabsence of malignant disease.Performed at: [place] [id number] Director: Red Graham PhD, Phone: [phone] Start: 05-14-[address] Olive Valera DO Work Phone: Start: 02-09-2023 POUCHOSCOPY Kiah Rushing WATER TREATMENT OPERATOR-FILTER TIP CATCHER Work Phone: Start: 06-06-2021 Assay of magnesium Miroslava Joiner MD Work Phone: Start: 06-05-2021 Assay of magnesium Miroslava Joiner MD Work Phone: Start: 06-04-2021 CARDIAC RHYTHM Other Other Start: 06-04-2021 End: 06-04-2021 Closure enterostomy lg/small intestine Miroslava Joiner MD Work Phone: Start: 02-18-2021 Computed tomography of abdomen and pelvis with contrast Dr. Olive Valera Work Phone: Start: 12-03-2020 Colonoscopy Taylor Downey H/O: liver recipient Liver repla rachel by transplant Dalia Thomas MD Work Phone: H/O: liver recipient S/P liver transplant Carmen Castellanos MD Work Phone: H/O: liver recipient Liver repla rachel by transplant Dalia Thomas MD Work Phone: H/O: liver recipient Liver repla rachel by transplant Dalia Thomas MD Work Phone: H/O: liver recipient S/P liver transplant Sonya Treviño MD, MPH Work Phone: H/O: liver recipient Liver trans plant status Dr. Olive Valera DO Work Phone: H/O: liver recipient S/P liver transplant Analisa Donovan MD Work Phone: H/O: liver recipient Liver repla rachel by transplant Babs Marley MD Work Phone: Laboratory test result abnormal Abnormal laboratory test Analisa Donovan MD Work Phone: Plan of Treatment Date Care Activity Detail Author Start: 08-22-2029 Lipid panel LIPID SCREENING [facility] Start: 04-24-2025 End: 04-24-2025 Patient encounter procedure 04/24/2025 2:00 PM EST Office Visit [facility] [address] [place] [address] [facility] Transplant [facility] Start: 03-15-2025 Prostate specific antigen measurement PROSTATE CANCER SCREENING DISCUSSION [facility] Start: 03-08-2025 End: 03-08-2025 Patient encounter procedure 03/08/2025 11:00 AM EST Office Visit [facility] [place] [address] [place] [address] Kiah Rushing, WATER TREATMENT OPERATOR-[place]OME [address] [place] [address] [facility] [place] Start: 02-17-2025 End: 02-17-2025 Admission to same day surgery center 02/17/2025 1:48 PM EST - 02/17/2025 2:34 PM EST Surgery [facility] [place] [address] [place] [address] Miroslava Joiner MD [address] [place] [address] EXAM UNDER ANESTHESIA ANORECTAL [facility] [place] Comment on above: EXAM UNDER ANESTHESIA ANORECTAL Start: 02-17-2025 ambulatory Facility:[facility] Start: 02-17-2025 End: 02-17-2025 Anrct xm surg req anes general spi/edrl dx EXAM UNDER ANESTHESIA ANORECTAL Ulcerative pancolitis with complication Anal pain 02/17/2025 1:48 PM EST [facility] Start: 02-17-2025 Subsequent hospital visit by physician 02/17/2025 1:48 PM EST Hospital Encounter [facility] [place] [address] [place] [address] Miroslava Joiner MD [address] [place] [phone] Ulcerative pancolitis with complication [facility] [place] Comment on above: Ulcerative pancolitis with complication Start: 02-09-2025 Reticulocyte count [facility] Start: 02-03-2025 End: 02-03-2025 ambulatory 02/03/2025 9:00 AM EST Pre-Operative Nurse Assessment Telehealth Pre Procedure Preparation [address] [place] [address] Flaca Castillo, FAIZAN Telehealth Pre Procedure Preparation Start: 01-23-2025 End: 01-23-2025 Patient encounter procedure 01/23/2025 1:20 PM EST Office Visit [facility] [place] [address] [place] [address] [facility] Start: 01-11-2025 Cytomegalovirus nucleic acid assay [facility] Start: 01-11-2025 Gamma glutamyl transferase measurement [facility] Start: 01-11-2025 Procedure [facility] Start: 01-11-2025 -Medical Out Work Phone: Start: 01-09-2025 End: 01-09-2025 Patient encounter procedure 01/09/2025 1:20 PM EST Office Visit [facility] [address] [place] [address] [facility] Trans[facility] Start: 01-04-2025 End: 01-04-2025 -Medical Out Work Phone: Start: 12-21-2024 Administration of blood product [facility] Start: 12-06-2024 Reticulocyte count [facility] Start: 11-30-2024 Gamma glutamyl transferase measurement [facility] Start: 11-23-2024 Procedure [facility] Start: 10-31-2024 Influenza vaccination [facility] Start: 10-23-2024 End: 10-23-2024 Patient encounter procedure 10/23/2024 8:00 AM EDT Appointment [facility] [place] [address] [place] [address] Maribel Brooks MD [address] [place], [place] [id number] Imaging [facility] Start: 10-15-2024 End: 10-15-2024 Patient encounter procedure 10/15/2024 2:40 PM EDT Appointment Imaging [facility] [place] [address] [place] [address] Maribel Brooks MD [address] [place] [address] [facility] [place] Start: 10-11-2024 End: 10-11-2024 Patient encounter procedure 10/11/2024 9:00 AM EDT Office Visit [facility] [place] [address] [place] [address] Babs Marley MD [address] [place] [address] [facility] [place] Start: 10-10-2024 End: 10-10-2024 Patient encounter procedure 10/10/2024 2:00 PM EDT Office Visit [facility] Trans[facility] [address] [place] [address] [facility] Trans[facility] Start: 09-26-2024 Procedure [facility] Start: 09-21-2024 End: 09-21-2024 Patient encounter procedure 09/21/2024 2:30 PM EDT Office Visit [facility] [place] [address] [place] [address] Maribel Brooks MD [address] [place] [address] [facility] [place] Start: 09-21-2024 End: 09-21-2025 MR Pelvis WO and W contrast IV MRI PELVIS WITH AND WITHOUT CONTRAST Imaging Urgent Ulcerative pancolitis with other complication Expected: 09/21/2024, Expires: 09/21/2025 [facility] Comment on above: Expected: 09/21/2024, Expires: Start: 08-29-2024 Gamma glutamyl transferase measurement [facility] Start: 08-23-2024 End: 08-23-2024 Patient encounter procedure 08/23/2024 9:00 AM EDT Office Visit [facility] [place] [address] [place] [address] Babs Marley MD [address] [place], [place] [id number] [facility] [place] Start: 08-15-2024 Gamma glutamyl transferase measurement [facility] Start: 08-11-2024 Procedure [facility] Start: 08-08-2024 End: 08-08-2024 Patient encounter procedure 08/08/2024 2:20 PM EDT Office Visit [facility] [address] [place] [address] [facility] Trans[facility] Start: 07-28-2024 Gamma glutamyl transferase measurement [facility] Start: 07-13-2024 End: 07-13-2024 Patient encounter procedure 07/13/2024 2:30 PM EDT Office Visit [facility] Trans[facility] [place] [facility] [address] [place] [address] Cici De La Cruz, WATER TREATMENT OPERATOR-FILTER TIP CATCHER [address] [place] [phone] [facility] [place] [facility] Start: 07-13-2024 End: 07-13-2024 Telemedicine consultation with patient 07/13/2024 2:30 PM EDT Telemedicine [facility] [place] [facility] [address] [place] [address] Cici De La Cruz, WATER TREATMENT OPERATOR-FILTER TIP CATCHER [address] [place] [address] [facility] Trans[facility] Start: 2024 Hepatitis B vaccination HEP B VACCINE (1 of 3 - Risk 3-dose series) [facility] Start: 2024 RSV VACCINE (1 - Risk 60-74 years 1-dose series) RSV VACCINE (1 - Risk 60-74 years 1-dose series) [facility] Start: 07-04-2024 End: 07-04-2024 Patient encounter procedure 07/04/2024 2:00 PM EDT Office Visit [facility] [place] [facility] [address] [place] [address] Dalia Thomas MD [address] [place] [address] [facility] [place] [facility] Start: 06-23-2024 Procedure [facility] Start: 06-20-2024 End: 06-20-2024 Patient encounter procedure 06/20/2024 2:30 PM EDT Office Visit [facility] Trans[facility] [place] [facility] [address] [place] [address] Dalia Thomas MD [address] [place] [address] [facility] [place] [facility] Start: 06-15-2024 End: 06-15-2024 Patient encounter procedure 06/15/2024 3:00 PM EDT Office Visit [facility] [address] [place] [phone] Carmen Castellanos MD [address] [place] [address] Infectious [facility] Start: 06-13-2024 End: 06-13-2024 Patient encounter procedure 06/13/2024 1:15 PM EDT Office Visit [facility] [place] [facility] [address] [place] [phone] Dalia Thomas MD [address] [place] [address] [facility] Trans[facility] [place] [facility] Start: 04-14-2024 End: 04-14-2024 Admission to same day surgery center 04/14/2024 1:00 PM EST - 04/14/2024 2:00 PM EST Surgery [facility] [address] [place] [phone] Ihisschedule, Cath All [address] [place] [address] CORONARY ANGIOGRAM WITH LEFT HEART CATH [facility] Comment on above: CORONARY ANGIOGRAM WITH LEFT HEART CATH Start: 04-14-2024 Subsequent hospital visit by physician 04/14/2024 1:00 PM EST Hospital Encounter [facility] [address] [place] [address] PSC (primary sclerosing cholangitis) [facility] Comment on above: PSC (primary sclerosing cholangitis) Start: 03-24-2024 End: 03-24-2024 Patient encounter procedure [facility] [place] Start: 03-15-2024 End: 03-15-2025 AFP TUMOR MARKER [facility] Comment on above: Expected: 03/15/2024, Expires: Start: 03-15-2024 End: 03-15-2025 CARBOXY THC, URINE, CONFIRMATION [facility] Comment on above: Expected: 03/15/2024, Expires: Start: 03-15-2024 End: 03-15-2025 CMV IGG AB [facility] Comment on above: Expected: 03/15/2024, Expires: Start: 03-15-2024 End: 03-15-2025 HLA TYPING (SOLID ORGAN) [facility] Comment on above: Expected: 03/15/2024, Expires: Start: 03-15-2024 End: 03-15-2025 M TUBERCULOSIS BY QUANTIFERON, BLD [facility] Comment on above: Expected: 03/15/2024, Expires: Start: 03-15-2024 End: 03-15-2025 PHOSPHATIDYLETHANOL (PETH), WHOLE BLOOD QUANTITATIVE [facility] Work Phone: Comment on above: Expected: 03/15/2024, Expires: Start: 01-24-2024 End: 01-24-2024 Patient encounter procedure 01/24/2024 1:20 PM EST Appointment [facility] [place] [address] [place] [address] Babs Marley MD [address] [facility] [address] [place] [address] [facility] [place] Start: 12-23-2023 End: 12-22-2024 AFP TUMOR MARKER [facility] Comment on above: Expected: 12/23/2023 (Approximate), Expi res: 12/22/2024 Start: 12-23-2023 End: 12-22-2024 [id number] PHENOTYPE [facility] Comment on above: Expected: 12/23/2023, Expires: Start: 12-23-2023 End: 12-22-2024 ANTI MITOCHONDRIAL ANTIBODY [facility] Comment on above: Expected: 12/23/2023 (Approximate), Expi res: 12/22/2024 Start: 12-23-2023 End: 12-22-2024 ANTI SMOOTH MUSCLE ANTIBODY [facility] Comment on above: Expected: 12/23/2023 (Approximate), Expi res: 12/22/2024 Start: 12-23-2023 End: 12-22-2024 BONE ALKALINE PHOSPHATASE [facility] Comment on above: Expected: 12/23/2023, Expires: Start: 12-23-2023 End: 12-22-2024 HEREDITARY HEMOCHROMATOSIS(GENE ANALYSIS, COMMON VARIANTS) [facility] Comment on above: Expected: 12/23/2023, Expires: Start: 12-23-2023 End: 12-22-2024 LIVER-KIDNEY MICROSOMAL AB [facility] Comment on above: Expected: 12/23/2023, Expires: Start: 12-23-2023 End: 12-22-2024 MR Abdomen WO and W contrast IV MRI ABDOMEN WITH AND WITHOUT CONTRAST Imaging Urgent PSC (primary sclerosing cholangitis) Expected: 12/23/2023, Expires: 12/22/2024 [facility] Comment on above: Expected: 12/23/2023, Expires: Start: 12-23-2023 End: 12-22-2024 T-TRANSGLUTAMINASE IGG/IGA, AB [facility] Comment on above: Expected: 12/23/2023, Expires: Start: 11-01-2023 COVID-19 VACCINE () COVID-19 VACCINE () [facility] Start: 11-01-2023 COVID-19 VACCINE ( season) COVID-19 VACCINE () [facility] Start: 11-01-2023 Influenza vaccination INFLUENZA VACCINE (#1) [facility] Start: 03-31-2023 Acute hepatitis 2000 panel - Serum [facility] Start: 03-31-2023 Tjple-4-xsfklffldbd.tumor marker [Units/volume] in Serum or Plasma [facility] Start: 03-31-2023 Angiotensin converting enzyme [Enzymatic activity/volume] in Serum or Plasma [facility] Start: 03-31-2023 Cancer antigen 19-9 measurement [facility] Start: 03-31-2023 Celiac disease screen [facility] Start: 03-31-2023 Ceruloplasmin [Mass/volume] in Serum or Plasma [facility] Start: 03-31-2023 Copper [Moles/volume] in Serum or Plasma [facility] Start: 03-31-2023 Haptoglobin [Mass/volume] in Serum or Plasma [facility] Start: 03-31-2023 Immunoglobulin measurement [facility] Start: 03-31-2023 Lab findings surveillance [facility] Start: 03-31-2023 Mitochondria Ab [Presence] in Serum [facility] Start: 03-31-2023 Procedure [facility] Start: 03-31-2023 Smooth muscle Ab [Presence] in Serum [facility] Start: 03-31-2023 Transferrin [Mass/volume] in Serum or Plasma [facility] Start: 03-31-2023 Vitamin D, 1,25-dihydroxy measurement [facility] Start: 03-31-2023 [facility] Start: 10-31-2022 COVID-19 VACCINE ( season) COVID-19 VACCINE () [facility] Start: 10-31-2022 Influenza vaccination INFLUENZA VACCINE (#1) [facility] Start: 03-13-2022 End: 03-13-2022 Patient encounter procedure 03/13/2022 Office Visit Colon & Rectal Surgery Miroslava Joiner MD [address] [place] [address] General and Gastrointestinal Surgery [facility] [place] Start: 02-28-2022 End: 02-28-2022 Admission to same day surgery center 02/28/2022 Surgery Multispecialty Miroslava Joiner MD [address] [place] [address] EXAM UNDER ANESTHESIA ANORECTAL [facility] [place] Comment on above: EXAM UNDER ANESTHESIA ANORECTAL Start: 02-28-2022 End: 02-28-2022 Anrct xm surg req anes general spi/edrl dx [facility] Start: 02-28-2022 End: 02-28-2022 Ndsc eval intstinal pouch dx w/collj spec spx [facility] Start: 02-28-2022 Subsequent hospital visit by physician 02/28/2022 Hospital Encounter Multispecialty Miroslava Joiner MD [address] [place] [address] Ulcerative pancolitis with other complication [facility] [place] Comment on above: Ulcerative pancolitis with other complic ation Start: 02-07-2022 End: 02-07-2022 ambulatory 02/07/2022 Telemed Clin Support Multispecialty Pre Procedure Preparation [facility] [place] Start: 02-04-2022 Colonoscopy COLORECTAL CANCER SCREENING DISCUSSION [facility] Start: 02-04-2022 Screening for malignant neoplasm of colon COLORECTAL CANCER SCREENING DISCUSSION [facility] Start: 12-03-2021 Screening for malignant neoplasm of colon COLONOSCOPY [facility] Start: 10-31-2021 Influenza vaccination [facility] Start: 07-11-2021 End: 07-11-2021 Patient encounter procedure 07/11/2021 Office Visit Colon & Rectal Surgery Miroslava Joiner MD [address] [place] [address] General and Gastrointestinal Surgery [facility] [place] Start: 06-19-2021 Patient referral [facility] Work Phone: Start: 04-03-2021 Patient referral to dietitian [facility] Start: 10-13-2020 COVID-19 VACCINE (3 - Booster for Justa series) COVID-19 VACCINE (3 - Booster for Justa series) [facility] Start: 07-11-2020 COVID-19 VACCINE (3 - Pfizer risk series) COVID-19 VACCINE (3 - Pfizer risk series) [facility] Start: 07-08-2019 Prostate specific antigen measurement PROSTATE CANCER SCREENING DISCUSSION [facility] Start: 2014 Pneumococcal vaccination PNEUMOCOCCAL VACCINE SERIES (1 of 1 - PCV) [facility] Start: 2014 Prostate specific antigen measurement PROSTATE CANCER SCREENING DISCUSSION [facility] Start: 2014 RSV VACCINE (1 - Risk 50-74 years 1-dose series) RSV VACCINE (1 - Risk 50-74 years 1-dose series) [facility] Start: 2014 Zoster vaccine hzv live for subcutaneous use ZOSTER (SHINGLES) VACCINE (1 of 2) [facility] Start: 2004 Fasting lipid profile LIPID SCREENING [facility] Start: 2004 Lipid panel LIPID SCREENING [facility] Start: 07-08-1983 Hepatitis B vaccination HEP B VACCINE (1 of 3 - 19+ 3-dose series) [facility] Start: 07-08-1983 Pneumococcal vaccination PNEUMOCOCCAL VACCINE SERIES (1 of 2 - PCV) [facility] Start: 07-08-1983 Third diphtheria, tetanus and acellular pertussis (DTaP) vaccination TDAP (ADULT) [facility] Start: 07-08-1983 Zoster vaccine hzv live for subcutaneous use ZOSTER (SHINGLES) VACCINE (1 of 2) [facility] Start: 1982 Tetanus vaccination TETANUS [facility] Start: 07-08-1979 HIV screening HIV SCREENING DISCUSSION [facility] Start: 1964 Hepatitis B vaccination HEP B VACCINE (1 of 3 - 3-dose series) [facility] Start: 1964 Hepatitis C antibody, confirmatory test HEPATITIS C VIRUS SCREENING [facility] Start: 1964 Hepatitis C screening HEPATITIS C VIRUS SCREENING [facility] Start: 1964 Tetanus vaccination TETANUS [facility] 6-minute walk test EXERCISE-6 [place] N. WALK PFT Routine Primary sclerosing cholangitis Pre-transplant evaluation for liver transplant Preoperative evaluation to rule out surgical contraindication 03/24/2024 10:17 AM EST [facility] Work Phone: ALK PHOSPHATASE FRACTIONATED ALK PHOSPHATASE FRACTIONATED Lab Routine 08/05/2024 6:04 AM EDT [facility] Work Phone: End: 12-31-2024 ALK PHOSPHATASE FRACTIONATED ALK PHOSPHATASE FRACTIONATED Lab Routine One Time for 1 Occurrences starting 12/31/2024 until 12/31/2024 [facility] Comment on above: One Time for 1 Occurrences starting 03/2024 until 12/31/2024 ALK PHOSPHATASE FRACTIONATED ALK PHOSPHATASE FRACTIONATED Lab Routine 12/31/2024 7:00 AM EDT [facility] End: 08-09-2024 ALLOSCREEN RECIPIENT (POST TX PRA) ALLOSCREEN RECIPIENT (POST TX PRA) Lab Routine One Time Morning Lab for 1 Occurrences starting 08/09/2024 until 08/09/2024 [facility] Comment on above: One Time Morning Lab for 1 Occurrences s tarting 08/09/2024 until 08/09/2024 ALLOSCREEN RECIPIENT (POST TX PRA) ALLOSCREEN RECIPIENT (POST TX PRA) Lab Routine 08/09/2024 5:46 AM EDT [facility] Antibody to lupus La protein measurement [facility] Antibody to SS-A measurement [facility] ARTERIAL BLOOD GAS, PULMONARY LAB OBTAINED ARTERIAL BLOOD GAS, PULMONARY LAB OBTAINED PFT Routine Primary sclerosing cholangitis Pre-transplant evaluation for liver transplant Preoperative evaluation to rule out surgical contraindication 03/24/2024 9:55 AM EST [facility] Work Phone: End: 02-28-2022 BILIARY BRUSHING WITH OTHER PROCEDURE BILIARY BRUSHING WITH OTHER PROCEDURE Imaging Routine Ulcerative pancolitis with other complication Anal pain One Time for 1 Occurrences starting 02/28/2022 until 02/28/2022 [facility] Comment on above: One Time for 1 Occurrences starting 02/01 until 02/28/2022 End: 12-30-2025 BMP WITHOUT GLUCOSE BMP WITHOUT GLUCOSE Lab Routine Esophageal candidiasis Once a week for 3 Occurrences starting 12/30/2024 until 12/30/2025 [facility] Comment on above: Once a week for 3 Occurrences starting 1 until 12/30/2025 Carcinoembryonic Ag [Mass/volume] in Serum or Plasma [facility] Carcinoembryonic Ag [Mass/volume] in Serum or Plasma [facility] Carcinoembryonic Ag [Mass/volume] in Serum or Plasma [facility] Carcinoembryonic ant igen measurement [facility] Cardiac catheterizat ion study INVASIVE CARDIOVASCULAR PROCEDURE Cardiac Cath Routine PSC (primary sclerosing cholangitis) Ulcerative colitis with complication, unspecified location Hepatic cirrhosis, unspecified hepatic cirrhosis type, unspecified whether ascites present Pre-transplant evaluation for liver transplant Abnormal stress test 04/14/2024 1:10 PM EST [facility] Work Phone: CBC W Auto Different ial panel - Blood [facility] CBC W Auto Different ial panel - Blood [facility] CBC W Auto Different ial panel - Blood [facility] CBC W Auto Different ial panel - Blood [facility] CBC W Auto Different ial panel - Blood [facility] CBC W Auto Different ial panel - Blood [facility] Centromere protein B Ab [Units/volume] in Serum [facility] Chromatin Ab [Units/volume] in Serum or Plasma [facility] Comprehensive metabo lic 1999 panel - Serum or Plasma [facility] metabo lic 1999 panel - Serum or Plasma [facility] CYTOLOGY, NON-PHYSICIAN OBSTETRICIAN [facility] Comment on above: Release Upon Ordering for 1 Occurrences starting 02/25/2024, 1 completed Cytomegalovirus DNA [log units/volume] (viral load) in Plasma by JACKY with probe detection [facility] Cytomegalovirus DNA [log units/volume] (viral load) in Plasma by JACKY with probe detection [facility] Cytomegalovirus DNA assay [facility] Cytomegalovirus DNA assay [facility] DNA double strand Ab [Units/volume] in Serum [facility] Ferritin [Mass/volum e] in Serum or Plasma [facility] Ferritin [Mass/volum e] in Serum or Plasma [facility] Ferritin [Mass/volum e] in Serum or Plasma [facility] Ferritin [Mass/volum e] in Serum or Plasma [facility] End: 12-29-2024 GENERAL PROCEDURE GENERAL PROCEDURE Procedures Routine Once for 1 Occurrences starting 12/29/2024 until 12/29/2024 [facility] Work Phone: Comment on above: Once for 1 Occurrences starting 12/30/19 until 12/29/2024 End: 12-30-2025 Hepatic function 2000 panel - Serum or Plasma HEPATIC FUNCTION PANEL Lab Routine Esophageal candidiasis Once a week for 3 Occurrences starting 12/30/2024 until 12/30/2025 [facility] Comment on above: Once a week for 3 Occurrences starting 1 until 12/30/2025 Hepatitis A virus Ig M Ab [Presence] in Serum [facility] Hepatitis B core ant ibody measurement, IgM type [facility] Hepatitis B surface antigen measurement [facility] Hepatitis C antibody measurement [facility] IgA [Mass/volume] in Serum or Plasma [facility] IgE [Units/volume] i n Serum or Plasma [facility] IgG [Mass/volume] in Serum or Plasma [facility] IgM [Mass/volume] in Serum or Plasma [facility] Iron and Iron bindin g capacity panel - Serum or Plasma [facility] Iron and Iron bindin g capacity panel - Serum or Plasma [facility] Iron and Iron bindin g capacity panel - Serum or Plasma [facility] Iron and Iron bindin g capacity panel - Serum or Plasma [facility] Erlinda-1 extractable nuc lear Ab [Units/volume] in Serum [facility] LAB INSTRUCTIONS LAB INSTRUCTION S Lab Routine Esophageal candidiasis Ordered: 12/29/2024 [facility] Comment on above: Ordered: 12/29/2024 Liver stiffness by US.transient elastography [facility] Measurement of immunoglobulin A in serum specimen [facility] Measurement of respi ratory function PFT STANDARD PFT Routine Primary sclerosing cholangitis Pre-transplant evaluation for liver transplant Preoperative evaluation to rule out surgical contraindication 03/24/2024 9:55 AM EST [facility] Work Phone: MR Biliary ducts and Pancreatic duct WO contrast [facility] End: 10-23-2024 MR Pelvis WO and W contrast IV U [facility] Comment on above: 1 Occurrences starting 10/23/2024 until 10/23/2024 Neutrophil cytoplasm ic Ab.classic [Units/volume] in Serum [facility] P-ANCA measurement [facility] Patient Education [facility] Work Phone: Patient referral [facility] Work Phone: Prothrombin time [facility] End: 12-28-2024 Q FEVER ANTIBODY [facility] Work Phone: Comment on above: One Time for 1 Occurrences starting 12/01 until 12/28/2024 Reticulocyte count [facility] Reticulocyte count [facility] Reticulocyte count [facility] End: 02-25-2024 RF Guidance for endoscopy of Biliary ducts and Pancreatic duct-- W contrast retrograde [facility] Work Phone: Comment on above: One Time for 1 Occurrences starting 01/31 until 02/25/2024 Ribonucleoprotein extractable nuclear Ab [Titer] in Serum [facility] SCL-70 extractable n uclear Ab [Units/volume] in Serum by Immunoassay [facility] Daniel extractable nu clear Ab [Presence] in Serum [facility] SURG PATH REQUEST [facility] Comment on above: Release Upon Ordering for 1 Occurrences starting 06/04/2021, 1 completed SURG PATH REQUEST [facility] Comment on above: Release Upon Ordering for 1 Occurrences starting 02/28/2022, 1 completed SURG PATH REQUEST [facility] Comment on above: Release Upon Ordering for 1 Occurrences starting 02/09/2023, 1 completed SURG PATH REQUEST [facility] Comment on above: Release Upon Ordering for 1 Occurrences starting 05/13/2024, 1 completed SURG PATH REQUEST [facility] Comment on above: Release Upon Ordering for 1 Occurrences starting 08/09/2024, 1 completed SURG PATH REQUEST [facility] Comment on above: Release Upon Ordering for 1 Occurrences starting 12/28/2024, 1 completed Tacrolimus [Mass/vol ume] in Blood [facility] Tacrolimus [Mass/vol ume] in Blood [facility] Tacrolimus [Mass/vol ume] in Blood [facility] Tacrolimus [Mass/vol ume] in Blood [facility] Tacrolimus [Mass/vol ume] in Blood [facility] Tissue transglutamin ase IgA Ab [Units/volume] in Serum [facility] End: 02-26-2024 TUMOR HOTSPOT MUTATION PANEL TUMOR HOTSPOT MUTATION PANEL Lab Routine PSC (primary sclerosing cholangitis) One Time Morning Lab for 1 Occurrences starting 02/26/2024 until 02/26/2024 [facility] Comment on above: One Time Morning Lab for 1 Occurrences s tarting 02/26/2024 until 02/26/2024 TUMOR HOTSPOT MUTATI ON PANEL TUMOR HOTSPOT MUTATION PANEL Lab Routine PSC (primary sclerosing cholangitis) 02/25/2024 10:16 AM EST [facility] Vitamin B12 measurement [facility] Payers Date Payer Category Payer Managed Care (unspecified) [id number] 2021 Unknown [facility] [employer] [id number] 2021-Present [address] [place] [address] [id number] 2020 Self-pay [id number] 2020 Unknown [id number] 1964 Unknown [id number] .16.840.1.792564.3.579.2 .594 1964 Unknown [id number] .840.1.342825.3.579.2 .594 1964 Unknown [id number] 2.840.1.157211.3.579.2 .594 1964 Unknown [id number] .0.1.471242.3.579.2 .594 1964 Unknown [id number] .840.1.880725.3.579.2 .594 1964 Unknown [id number] .0.1.362693.3.579.2 .594 1964 Unknown [id number] .0.1.086377.3.579.2 .594 1964 Unknown [id number] 04.17.830.1.433178.3.579.2 .594 1964 Unknown [id number] .0.1.771058.3.579.2 .594 1964 Unknown [id number] .1.059746.3.579.2 .594 1964 Unknown [id number] 04.17.830.1.170885.3.579.2 .594 1964 Unknown [id number] 04.17.830.1.041144.3.579.2 .594 1964 Unknown [id number] .840.1.927862.3.579.2 .594 1964 Unknown [id number] .0.1.362576.3.579.2 .594 1964 Unknown [id number] .840.1.009332.3.579.2 .594 1964 Unknown [id number] 840.1.832663.3.579.2 .594 1964 Unknown [id number] 840.1.378130.3.579.2 .594 1964 Unknown [id number] 2.840.1.052137.3.579.2 .594 1964 Unknown [id number] 2.840.1.058242.3.579.2 .594 1964 Unknown [id number] 2.840.1.792518.3.579.2 .594 1964 Unknown [id number] 2.840.1.854123.3.579.2 .594 1964 Unknown [id number] 2.840.1.473753.3.579.2 .594 1964 Unknown [id number] 2.840.1.094285.3.579.2 .594 1964 Unknown [id number] 2840.1.113734.3.579.2 .594 1964 Unknown [id number] 2.840.1.672515.3.579.2 .594 1964 Unknown [id number] 840.1.070137.3.579.2 .594 1964 Unknown [id number] 840.1.842594.3.579.2 .594 1964 Unknown [id number] 2840.1.649170.3.579.2 .594 1964 Unknown [id number] .840.1.304613.3.579.2 .594 1964 Unknown [id number] 840.1.588782.3.579.2 .594 1964 Unknown [id number] 2.840.1.402397.3.579.2 .594 1964 Unknown [id number] 2.840.1.637277.3.579.2 .594 1964 Unknown [id number] 2.16.840.1.684139.3.579.2 .594 1964 Unknown [id number] 2.16.840.1.899882.3.579.2 .594 Unknown [id number] Unknown [id number] 2.16.840.1.825984.3.579.2 .462 Unknown [id number] 2.16.840.1.216793.3.579.2 .462 Unknown [id number] 2.16.840.1.655111.3.579.2 .462 Unknown [id number] 2.16.840.1.804334.3.579.2 .462 Unknown [id number] 2.16.840.1.076977.3.579.2 .462 Unknown [id number] 2.16.840.1.494504.3.579.2 .462 Unknown [id number] 2.16.840.1.765719.3.579.2 .462 Unknown [id number] 2.16.840.1.464646.3.579.2 .462 Unknown [id number] 2.16.840.1.016805.3.579.2 .462 Unknown [id number] 2.16.840.1.540854.3.579.2 .462 Unknown [id number] 2.16.840.1.674318.3.579.2 .462 Unknown [id number] 2.16.840.1.917359.3.579.2 .462 Unknown [id number] 2.16.840.1.115217.3.579.2 .462 Unknown [id number] 2.16.840.1.501590.3.579.2 .462 Unknown [id number] 2.16.840.1.487532.3.579.2 .462 Unknown [id number] 2.16.840.1.550124.3.579.2 .462 Unknown [id number] 2.16.840.1.264622.3.579.2 .462 Unknown [id number] 2.16.840.1.271264.3.579.2 .462 Unknown [id number] 2.16.840.1.370017.3.579.2 .462 Unknown [id number] 2.16.840.1.427115.3.579.2 .462 Unknown [id number] 2.16.840.1.637130.3.579.2 .462 Unknown [id number] 2.16.840.1.554177.3.579.2 .462 Unknown [id number] 2.16.840.1.158285.3.579.2 .462 Social History Date Type Detail Facility Start: 02-18-2021 End: 03-31-2023 Tobacco smoking status NHIS Unknown if ever smoked [facility] Start: 1965 Sex Assigned At Male W [facility] Start: 01-03-2021 End: 12-21-2024 Tobacco smoking status NHIS Never smoked tobacco [facility] Start: 01-03-2021 End: 12-26-2021 Tobacco use and exposure Smokeless tobacco non-user [facility] Start: 06-05-2021 End: 12-30-2024 Alcohol intake Ex-drinker (finding) [facility] Start: 1965 Sex Assigned At Not on file [facility] Start: 05-25-2021 End: 06-04-2021 Exposure to SARS-CoV-2 (event) Not sure [facility] Start: 02-18-2022 End: 02-28-2022 Exposure to SARS-CoV-2 (event) Unable to assess [facility] Start: 03-13-2022 End: 12-31-2024 History of Social function [facility] Start: 03-13-2022 End: 12-31-2024 Tobacco use panel [facility] Start: 01-17-2024 Gender identity Identifies as male gender (finding) [facility] Start: 01-17-2024 Sexual orientation Heterosexual (fior dc) [facility] Start: 01-01-2021 End: 05-12-2024 Sex Male (finding) [facility] How hard is it for y ou to pay for the very basics like food, housing, medical care, and heating Not hard at all [facility] Medical Equipment Procedure Code Equipment Code Equipment Origin al Text Equipment Identifier Dates 5fr 1 Lumen Microintroducer Power Injectable Cuff Tray - [id number] FDA Start: 12-29-2024 Comment on above: Description: Implant time-out completed by intra-procedural staff including this RN, technology instructor, and performing physician. The following was completed. RN reads out loud implant type/size/ expiration date, and verbalizes location. Holds package up to tech to visually verify implant details. Tech reads back package details MD verifies verbally correct implant Time-out was completed for each coil during embolization, if applicable. Goals Date Patient Goal Desired Activity /State Personal health goal Functional Status Date Assessment Result Facility 12-26-2024 Are you deaf, or do you have serious difficulty hearing No 12/26/2024 5:31 PM Marcus Sarkar, FAIZAN No [facility] 12-26-2024 Are you blind, or do you have serious difficulty seeing, even when wearing glasses No 12/26/2024 5:31 PM Marcus Sarkar, FAIZAN No [facility] 12-26-2024 Do you have serious difficulty walking or climbing stairs No 12/26/2024 5:31 PM Marcus Sarkar, FAIZAN No [facility] 12-26-2024 Do you have difficul ty dressing or bathing No 12/26/2024 5:31 PM Marcus Sarkar, RN No [facility] 12-26-2024 Because of a physica l, mental, or emotional condition, do you have difficulty doing errands alone such as visiting a physician's office or shopping No 12/26/2024 5:31 PM Marcus Sarkar, RN No [facility] 08-01-2024 Are you deaf, or do you have serious difficulty hearing No 08/01/2024 7:08 PM Xiomara Cole, FAIZAN No [facility] 08-01-2024 Are you blind, or do you have serious difficulty seeing, even when wearing glasses No 08/01/2024 7:08 PM Xiomara Cole, FAIZAN No [facility] 08-01-2024 Do you have serious difficulty walking or climbing stairs No 08/01/2024 7:08 PM Xiomara Cole, FAIZAN No [facility] 08-01-2024 Do you have difficul ty dressing or bathing No 08/01/2024 7:08 PM Xiomara Cole, FAIZAN No [facility] 08-01-2024 Because of a physica l, mental, or emotional condition, do you have difficulty doing errands alone such as visiting a physician's office or shopping No 08/01/2024 7:08 PM Xiomara Cole, FAIZAN No [facility] 05-25-2024 Are you deaf, or do you have serious difficulty hearing No 05/25/2024 1:00 AM Adam Ojeda, FAIZAN No [facility] 05-25-2024 Are you blind, or do you have serious difficulty seeing, even when wearing glasses No 05/25/2024 1:00 AM Adam Ojeda, FAIZAN No [facility] 05-25-2024 Do you have serious difficulty walking or climbing stairs No 05/25/2024 1:00 AM Adam Ojeda, FAIZAN No [facility] 05-25-2024 Do you have difficul ty dressing or bathing No 05/25/2024 1:00 AM Adam Ojeda, FAIZAN No [facility] 05-25-2024 Because of a physica l, mental, or emotional condition, do you have difficulty doing errands alone such as visiting a physician's office or shopping No 05/25/2024 1:00 AM Adam OjedaFAIZAN No [facility] 06-04-2021 Are you deaf, or do you have serious difficulty hearing No 06/04/2021 4:53 PM Aislinn Villalta RN No [facility] 06-04-2021 Are you blind, or do you have serious difficulty seeing, even when wearing glasses No 06/04/2021 4:53 PM Aislinn Villalta, FAIZAN No [facility] 06-04-2021 Do you have serious difficulty walking or climbing stairs No 06/04/2021 4:53 PM Aislinn Villalta, FAIZAN No [facility] 06-04-2021 Do you have difficul ty dressing or bathing No 06/04/2021 4:53 PM Aislinn Villalta, FAIZAN No [facility] 06-04-2021 Because of a physica l, mental, or emotional condition, do you have difficulty doing errands alone such as visiting a physician's office or shopping No 06/04/2021 4:53 PM Aislinn Villalta, FAIZAN No [facility] Mental Status Date Assessment Result Facility 01-11-2025 Cognitive function [facility] Work Phone: 01-04-2025 Cognitive function Voice/Name [facility] Work Phone: 12-26-2024 Because of a physica l, mental, or emotional condition, do you have serious difficulty concentrating, remembering, or making decisions No 12/26/2024 5:31 PM Marcus Sarkar, FAIZAN No [facility] 08-01-2024 Because of a physica l, mental, or emotional condition, do you have serious difficulty concentrating, remembering, or making decisions No 08/01/2024 7:08 PM Xiomara Cole, FAIZAN No [facility] 05-25-2024 Because of a physica l, mental, or emotional condition, do you have serious difficulty concentrating, remembering, or making decisions No 05/25/2024 1:00 AM Adam Ojeda, FAIZAN No [facility] 04-08-2022 Cognitive function Voice/Name [facility] Work Phone: 06-04-2021 Because of a physica l, mental, or emotional condition, do you have serious difficulty concentrating, remembering, or making decisions No 06/04/2021 4:53 PM EDT Aislinn Liao, RN No [facility] 04-17-2021 Cognitive function Level Of Cons ciousness Awake;Alert;Appropriate;Fo llows Commands [facility] Work Phone: Clinical Notes 01-08-2021 to 12-31-2024 Marylin Mccarthy, [facility] - 12/31/2024 1:29 PM Keely Ruff MD, PhD - 12/31/2024 10:13 AM Cliff Cesar MD - 12/31/2024 10:[address] Morel RN - 12/31/2024 10:03 AM EDT Note Date & Type Note Facility 12-31-2024 History of Present illness Narrative Department of Pharmacy Transplant Note Patient: Jc Dunaway Transplant Discharge Follow-up Note Transplant date: 05/25/2024 (Liver) Transplant type: Liver Primary disease: Primary Sclerosing Cholangitis: Ulcerative Colitis Discharge date: 12/31/24 Discharge location: Home Admission summary: Patient admitted for elevated ALP and anemia. Pouchostomy with ulcerations and inflammation on steroid suppositories. BXP pending at discharge. Found to have naeem esophagitis ID consulted planning for 21 days micafungin. Abdominal MRI 12/30 prior to discharge. Discharge medications Maintenance immunosuppression: Mycophenolate mofetil: 250 mg by mouth twice daily Tacrolimus: 3 mg AM and 2 mg PM by mouth twice daily Last level(s): Lab Results Component Value Date/Time Tacrolimus, Trough 7.7 12/31/2024 0700 Tacrolimus, Trough 6.4 12/30/2024 0551 Tacrolimus, Trough 6.9 12/29/2024 0644 TACROLIMUS LEVEL(TROUGH),MANUAL ENTER 5.5 12/14/2024 0944 TACROLIMUS LEVEL(TROUGH),MANUAL ENTER 4.6 12/07/2024 1008 TACROLIMUS LEVEL(TROUGH),MANUAL ENTER 4.9 11/30/2024 0920 Last dose change: 12/29 held from 4 mg BID Trough goal: 6-8 ng/mL Immunosuppression modified due to: N/A Medication additions/changes: Micafungin 150 mg daily x 21 days EOT: 01/28/29 per OPAT STOP: Valganciclovir (CMV negative since oct), needs monitoring outpatient Name: Marylin Mccarthy RPH Phone: [phone] Date/Time: 12/31/2024 1:52 PM I saw and evaluated the patient with our multidisciplinary care team. I provided a substantive portion of the care for this patient. I personally performed all aspects of the medical decision making for today's encounter. 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, janay revision 06/03/2024, admitted 12/26 with anal pain, bloody bowel movements, and odynophagia HD#6: Doing well, diarrhea improved, ready for discharge liver allograft function: AlkP elevated, will monitor renal function: good naeem esophagitis: micafungin anal ulcerations/pouchitis: steroid suppositories and imodium immunosuppression: tacrolimus: goal 7-9 mycophenolate: 250 bID steroid: --- disposition: home today, RTC per protocol Dell Ruff MD, PhD HEPATOLOGY PROGRESS NOTE Subjective/Interval Events: Notes throat pain is improved, still with anal pain Objective: Temp: [97.6 F (36.4 C)-100 F (37.8 C)] 99.8 F (37.7 C) Pulse (Heart Rate): [73-96] 96 Resp Rate: [14-16] 16 BP: (108-118)/(64-72) 117/70 O2 Sat (%): [97 %-100 %] 98 % Wt Readings from Last 3 Encounters: 12/29/24 43.5 kg (96 lb) 12/01/24 45.7 kg (100 lb 12.8 oz) 10/23/24 45.4 kg (100 lb) Gen: No acute distress. Comfortable. HEENT: No scleral icterus. Respiratory: No increased WOB Cardiovascular: Nontachycardic Abdominal: Soft. + BS. ND. NT. Incision c/d/i Neurological: No gross deficits. Extremities: 2+ pulses, no edema Medications: aspirin 81 mg Oral Daily [Held by provider] enoxaparin 30 mg Subcutaneous Q24H Entecavir 0.5 mg Oral Daily hydrocortisone 25 mg Rectal BID micafungin 150 mg Intravenous Q24H Mycophenolate mofetil 250 mg Oral Q12HNS Pantoprazole 40 mg Oral Daily Sulfamethoxazole-trimethoprim 1 tablet Oral 3x weekly (non-std) Tacrolimus 3 mg Oral Daily And Tacrolimus 2 mg Oral Nightly Tamsulosin HCl 0.4 mg Oral Daily ursodiol 600 mg Oral Q12H valGANciclovir 450 mg Oral Daily Labs: All relevant labs were reviewed. WBC/Hgb/Hct/Plts: 2.17/10.5/34.7/464 (12/31 699) Bun/Creat/Cl/CO2/Glucose: 23/0.90/102/24/128 (12/31 699) Na/K+/Phos/Mg/Ca: 134/4.2/--/--/-- (12/31 699) Lab Results Component Value Date ALT 7 (L) 12/31/2024 ALT 12 12/14/2024 AST 16 12/31/2024 AST 22 12/14/2024 ALKPHOS 613 (H) 12/31/2024 ALKPHOS 741 12/14/2024 ALKPHOS 493 (H) 08/05/2024 BILITOTAL 0.3 12/31/2024 BILITOTAL <0.15 12/14/2024 BILIDIRECT 0.1 12/31/2024 BILIDIRECT 0.11 12/14/2024 INR 1.2 (H) 12/29/2024 INR 1.6 04/28/2024 Explant Path: A. Lime liver, total hepatectomy: Well-established biliary-type cirrhosis with patchy cholestasis, mild bile ductular proliferation and foci of concentric dorcas-ductal fibrosis, consistent with history of primary sclerosing cholangitis; see comment Gallbladder with chronic cholecystitis and cholelithiasis One (1) benign pericystic lymph node B. Gallbladder, cholecystectomy: Gall bladder with chronic inflammation C. Liver, biopsy: Subcapsular hepatic parenchyma with mild subcapsular and centrilobular necrosis, consistent with mild ischemia/reperfusion injury No significant steatosis or fibrosis (Trichrome) Imaging: All relevant imaging and procedures were reviewed. ASSESSMENT AND PLAN: Jc Dunaway is a 59 y.o. 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 MRI/MRCP -- showing motion degraded exam, but mild dilation of CBD approximately 8mm with distal tapering. Liver doppler with marked pneumobilia and patent vasculature. Discussed with Transplant surgery, will hold off on ERCP for now and monitor LFT trend - IS as noted above. Recommend no changes - Continue antiviral/antibacterial ppx per protocol. - Continue entecavir (renally dosed) given donor HBcAb positive. - Patient previously with anorectal pain; prior h/o colon cancer and UC for which he underwent TPC/IPAA with pouch - follows with colorectal surgery and recently saw Dr. Joiner. Colorectal following, pouchoscopy 12/28 with normal appearing J-pouch and inflammation/ulcerations in rectum, recommending steroid suppositories for inflammation. Bx pending. Chaparrita Cesar MD [employer] Teacher of Internal Medicine Division of Gastroenterology, Hepatology, and Nutrition Pager: [phone] Care Management Progress Note CM confirmed no changes to the antibiotic prescription already sent yesterday. Informed infusion provider, patient anticipated to discharge home today. Provided call back number if concerns or questions arise to infusion pharmacy. Jessica BELL, RN, [facility] Lead Clinical Hair Spinning Machine Operator #[phone] [facility] phone Images from the original note were not included. Final Discharge Planning and Transportation Final Discharge Planning Discharge Disposition: Home with Infusion Services at Discharge: Correction Selected Continued Care - Admitted Since 12/26/2024 Dialysis/Infusion Service Provider Services Address Phone Fax Patient Preferred [facility] Infusion and IV Therapy [facility] [facility] [address] [phone] -- Home Medical Care Service Provider Services Address Phone Fax Patient Preferred [facility] [address] [place], [place] [address] -- -- Community Agency Name(s) For Handoff: [place] [address] Name For Handoff: Nursing Phone For Handoff: Fax For Handoff: Community Agency Name For Handoff: [facility], an [employer] [facility] [address] [place] [address] Contact Name For Handoff: Micafungin Phone For Handoff: Fax For Handoff: Plan Discharging home with family support/follow-up/ home health for home IV infusion Line care order/weekly labs/antibiotic scripts uploaded to [employer] Spouse to transport home Bonifacio BELL, FAIZAN Clinical Hair Spinning Machine Operator Hepatobiliary Follow-Up Consult Note IDENTIFYING DATA/REASON FOR CONSULTATION PATIENT: Jc Dunaway ADMIT DATE: 12/26/2024 TIME OF EVALUATION: 12/30/2024 11:16 AM HOSPITAL STAY: LOS: 4 days REFERRING PHYSICIAN: Sonya Treviño MD, * REASON FOR CONSULTATION: s/p OLT SUBJECTIVE/INTERVAL HISTORY: No acute events. ALP 592, AST 14, ALT 5, bili 0.3. INR 1.2. Hgb 9.9, Plt 455 MRI/MRCP -- showing motion degraded exam, but mild dilation of CBD approximately 8mm with distal tapering HISTORY OF PRESENT ILLNESS: Jc Dunaway is a 59 y.o. 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 We have been consulted regarding s/p OLT. Fall Risk: Assessed for patient fall risk and discussed safety measures during rounding. Patient has a past medical history of colon cancer, UC s/p TPC/IPAA with pouch, and PSCC cirrhosis s/p DCD OLT 05/25/24 (D+/R-) with RNY choledochojejunostomy. Donor HBcAb positive. Post-op course c/b bile leak with re-do choledochojejunostomy and bowel obstruction at site of previous j-pouch; also with admission 07/2024 for new diarrhea with hematochezia and fevers; concern for Q fever for which patient was treated with doxycycline for 4 weeks. Patient presents with elevated LFTs and ongoing anemia. Also describes difficulty swallowing with epigastric pain and ongoing anorectal pain for which he saw Dr. Joiner in colorectal surgery. 12/28: EGD, esophageal candidiasis. Pouchoscopy with multiple ulcers at anus. PAST MEDICAL, SURGICAL, FAMILY & SOCIAL HISTORY: Past Medical History[1] Past Surgical History[2] Family History Problem Relation Age of Onset Colorectal Cancer Neg Hx Social History[3] MEDICATIONS: SCHEDULED: [Held by provider] aspirin chewable tablet 81 mg, 81 mg, Daily [Held by provider] Enoxaparin Sodium (LOVENOX) injection 30 mg, 30 mg, Q24H Entecavir (BARACLUDE) tablet 0.5 mg, 0.5 mg, Daily hydrocortisone (ANUSOL-HC) suppository 25 mg, 25 mg, BID Micafungin (MYCAMINE) 150 mg in Sodium chloride 0.9%, with overfill 125 mL (total volume) IVPB, 150 mg, Q24H Mycophenolate mofetil (CELLCEPT) capsule 250 mg, 250 mg, Q12HNS Pantoprazole (PROTONIX) injection 40 mg, 40 mg, Daily Sulfamethoxazole-trimethoprim (BACTRIM DS) 800-160 MG per tablet 1 tablet, 1 tablet, 3x weekly (non-std) Tacrolimus (PROGRAF) capsule 3 mg, 3 mg, Daily And Tacrolimus (PROGRAF) capsule 2 mg, 2 mg, Nightly Tamsulosin HCl (FLOMAX) capsule 0.4 mg, 0.4 mg, Daily ursodiol (ACTIGALL) capsule 600 mg, 600 mg, Q12H valGANciclovir (valCYTE) tablet 450 mg, 450 mg, Daily FLUIDS/DRIPS: PRNs: Acetaminophen, 650 mg, Q6H PRN Loperamide, 2 mg, Q4H PRN Ondansetron 4mg/2ml, 4 mg, Q6H PRN Or Ondansetron, 4 mg, Q6H PRN Sodium chloride (PF), 1-250 mL, Once PRN Sodium chloride 0.9%, 250 mL, PRN ALLERGIES: He has no known allergies. REVIEW OF SYSTEMS; otherwise full ROS was reviewed and was otherwise negative Review of Systems Constitutional: Negative. HENT: Negative. Cardiovascular: Negative. Musculoskeletal: Negative. Psychiatric: Negative. Lymph/Heme: Negative. PHYSICAL EXAM: Temp: [98 F (36.7 C)-99.8 F (37.7 C)] 98 F (36.7 C) Pulse (Heart Rate): [71-82] 78 Resp Rate: [14-19] 17 BP: (104-120)/(63-68) 116/68 O2 Sat (%): [97 %-99 %] 99 % Weight: [43.5 kg (96 lb)] 43.5 kg (96 lb) I/O last 3 completed shifts: In: 400 [P.O.:400] Out: 225 [Urine:225] Oxygen Therapy: Oxygen Therapy O2 Sat (%): 99 % O2 Device: room air Constitutional: Breathing easily, in no acute distress. Does not appear cachectic. HEENT: PER, neg scleral icterus, normal appearing oropharynx, no appreciable cervical LAD Cardiovascular: Normal rate and regular rhythm. Pulmonary/Chest: normal WOB Abdominal: Soft. NT/ND. No appreciable HS. Extrem: No appreciable edema. No gross focal motor deficits in distal extrem. Neurological: sleeping on exam Skin: Does not appear jaundiced. LABS AND IMAGING: Recent Results (from the past 24 hours) CHEM 7 (LYTES,BUN,CREA,GLUC) Collection Time: 12/30/24 5:51 AM Result Value Ref Range Sodium 134 (L) 135 - 145 mmol/L Potassium 4.8 3.5 - 5.0 mmol/L Chloride 102 98 - 108 mmol/L CO2 22 21 - 31 mmol/L Glucose 89 Nonfastin-179 mg/dL; Fastin-99 mg/dL BUN 23 7 - 25 mg/dL Creatinine 0.89 0.70 - 1.30 mg/dL Bun/Crea Ratio 26 Osmolality (Calculated) 286 278 - 305 mOsm/kg Anion Gap 15 7 - 17 mmol/L eGFR, CKD-EPI, Male >90 >=60 mL/min/1.73m2 HEPATIC FUNCTION PANEL Collection Time: 12/30/24 5:51 AM Result Value Ref Range Albumin 3.1 (L) 3.5 - 5.0 g/dL Bilirubin Direct 0.1 <0.3 mg/dL Bilirubin Total 0.3 <1.5 mg/dL ALP 592 (H) 32 - 126 U/L ALT 5 (L) 10 - 52 U/L AST 14 10 - 39 U/L Total Protein 5.8 (L) 6.4 - 8.3 g/dL TACROLIMUS LEVEL, TROUGH (PRE DRUG LEVEL) Collection Time: 12/30/24 5:51 AM Result Value Ref Range Tacrolimus, Trough 6.4 Bone Marrow Transplant: 5.0-15.0 Kidney/Pancreatic Transplant: 0 to 3 months: 8.0-10.0, 3 to 12 months: 6.0-8.0, >12 months: 4.0-6.0 ng/mL CBC AND ELECTRONIC DIFF Collection Time: 12/30/24 5:51 AM Result Value Ref Range WBC Count 2.22 (L) 3.73 - 10.10 K/uL RBC Count 3.51 (L) 4.38 - 5.83 M/uL Hemoglobin 9.9 (L) 13.4 - 16.8 g/dL Hematocrit 31.5 (L) 39.6 - 48.8 % Mean Cell Volume 89.7 79.0 - 94.5 fL Mean Cell Hgb 28.2 26.1 - 33.3 pg Mean Cell Hgb Conc 31.4 (L) 31.9 - 36.5 g/dL RBC Distribution 17.5 (H) 10.9 - 14.3 % Platelet Count 455 (H) 146 - 337 K/uL Mean Platelet Volume 10.3 8.7 - 12.3 fL MANUAL DIFF Collection Time: 12/30/24 5:51 AM Result Value Ref Range DIFF STATUS Manual Differential Bands Relative 0.8 % Segs Relative 45.9 % Lymph Relative 32.5 % Tama Relative 20.0 % Eos Relative 0.0 % Baso Relative 0.0 % Metamyelocyte Relative 0.8 % Segs & Bands, Absolute 1.04 (L) 1.57 - 6.19 K/uL Abs Lymph Manual 0.72 (L) 0.83 - 3.57 K/uL Abs Tama Manual 0.44 0.24 - 0.93 K/uL Abs Eos Manual 0.00 0.00 - 0.48 K\uL Abs Baso Manual 0.00 0.00 - 0.09 K/uL Abs [place] Manual 0.02 <=0.07 K/uL RBC Morphology RBC INDICES CONFIRMED WITH MANUAL SLIDE REVIEW Platelet Estimate Automated platelet count confirmed by manual slide review Ovalocytes Present (A) (none) Target Cells Present (A) (none) Other Labs Reviewed. Imaging 12/27/24 - US Abdomen Liver Doppler 1. Marked scattered pneumobilia. Correlation with dedicated CT of the abdomen and pelvis is recommended. 2. Patent transplant vasculature. 10/23/24 - MRI Pelvis with/without contrast 1. Questionable intersphincteric sinus tract involving the lower anal canal without apparent cutaneous opening. No perianal abscesses or active inflammatory bowel disease. 2. Left presacral collection is stable in size and is consistent with a hematoma. ASSESSMENT & RECOMMENDATIONS: Jc Dunaway is a 59 y.o. 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 We have been consulted regarding s/p OLT. 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 RECOMMENDATIONS: -continue tacrolimus as above -EGD 12/28 with esophageal candidiasis. Will need anti-fungal treatment for 21 days; given hx naeem auris, plan for treatment with micafungin per ID. -Neutropenia improved, would consider switching from valcyte to letermovir (prior h/o CMV viremia); repeat PCRs negative. -Alk phos significantly elevated. MRI/MRCP -- showing motion degraded exam, but mild dilation of CBD approximately 8mm with distal tapering. Liver doppler with marked pneumobilia and patent vasculature. - Discussed with Transplant surgery, will hold off on ERCP for now and monitor LFT trend -Patient previously with anorectal pain; prior h/o colon cancer and UC for which he underwent TPC/IPAA with pouch - follows with colorectal surgery and recently saw Dr. Joiner. Colorectal following, pouchoscopy 12/28 with normal appearing J-pouch and inflammation/ulcerations in rectum, recommending steroid suppositories for inflammation. Bx pending. -Continue entecavir (renally dosed) given donor HBcAb positive. -IS otherwise as above; antiviral/antibacterial ppx per protocol -Plan of care discussed with transplant surgery -Will continue to follow. Ej Story MD For contact information (pager), please go to [facility] > Internal Medicine > Gastroenterology, Hepatology, & Nutrition If you have any questions or need any further information, please feel free to contact our consult team. Thank you for allowing us to participate in the care of Jc Dunaway. [1] Past Medical History: Diagnosis Date Cirrhosis of liver not due to alcohol 03/15/2024 Colon cancer 10/2020 Primary sclerosing cholangitis Ulcerative colitis diagnosed in the 80s- no surgery [2] Past Surgical History: Procedure Laterality Date LAPAROTOMY EXPLORATORY N/A 06/03/2024 Laterality: N/A; Surgeon: Dalia Thomas MD; Location: [facility] MAIN OR LIVER TRANSPLANT, ORTHOTOPIC N/A 05/25/2024 Laterality: N/A; Surgeon: Dalia Thomas MD; Location: [facility] MAIN OR EXAM UNDER ANESTHESIA ANORECTAL N/A 02/28/2022 Laterality: N/A; Surgeon: Miroslava Joiner MD; Location: [facility] PERIOP ENDOSCOPY SMALL INTESTINE POUCH DIAGNOSTIC N/A 02/28/2022 Laterality: N/A; Surgeon: Miroslava Joiner MD; Location: [facility] PERIOP LOOP ILEOSTOMY CLOSURE N/A 06/04/2021 Laterality: N/A; Surgeon: Miroslava Joiner MD; Location: [facility] MAIN OR ENDOSCOPY SMALL INTESTINE POUCH DIAGNOSTIC N/A 04/22/2021 Laterality: N/A; Surgeon: Miroslava Joiner MD; Location: [facility] ENDOSCOPY COLOPROCTECTOMY TOTAL W/ LOOP ILEOSTOMY OR CREATION ILEAL RESERVOIR LAPAROSCOPIC N/A 02/12/2021 Laterality: N/A; Surgeon: Miroslava Joiner MD; Location: [facility] MAIN OR SIGMOIDOSCOPY DIAGNOSTIC N/A 02/04/2021 Laterality: N/A; Surgeon: Miroslava Joiner MD; Location: [facility] ENDOSCOPY HIP REPLACEMENT Left 2005 COLONOSCOPY DIAGNOSTIC Nov 20202001 [3] Social History Socioeconomic History Marital status: Tobacco Use Smoking status: Never Smokeless tobacco: Never Vaping Use Vaping status: Never Used Substance and Sexual Activity Alcohol use: Not Currently Drug use: Not Currently Social Drivers of Health Financial Resource Strain: Low Risk (05/26/2024) Overall Financial Resource Strain (CARDIA) Difficulty of Paying Living Expenses: Not hard at all Food Insecurity: No Food Insecurity (12/27/2024) NCSS - Food Insecurity Worried About Running Out of Food in the Last Year: No Ran Out of Food in the Last Year: No Transportation Needs: No Transportation Needs (12/27/2024) NCSS - Transportation Lack of Transportation: No Personal Safety: Not At Risk (12/27/2024) NCSS - Interpersonal Safety Feels Physically and Emotionally Safe: Yes Physically Hurt by Someone: No Humiliated or Emotionally Abused by Someone: No Housing Stability: Not At Risk (12/27/2024) NCSS - Housing/Utilities Has Housing: Yes Worried About Losing Housing: No Unable to Get Utilities: No Cosigned by CHAN Pina at 12/30/2024 9:34 PM EDT Associated attestation - Francia Ware MBBS - 12/30/2024 9:34 PM EDT ATTENDING STATEMENT: I have personally seen and examined this patient independently. All pertinent data has been reviewed. I agree with the resident/fellow dictated impression and plan. Jc Dunaway 59 post LT (DCD) for PSC on 05/25/24 (D+/R-); RNY choledocho-jejunostomy. Now with esophageal naeem and raised ALP. MRCP showed dilated CBD. ALP improving. ERCP vs PTC vs wait & watch. TRO wants to wait and watch LFTs. Francia GILES, MSc Professor-Clinical Medicine Department of Medicine [facility], [place], [place] TRANSPLANT SURGERY IMMUNOSUPPRESSION/ PROGRESS NOTE: Date of Service: 12/30/2024 Admit Date: 12/26/2024 Date of last transplant: 05/25/24 Surgery Post-op Days: 1 Day Post-Op s/p Procedure(s) (LRB): INSERTION CVC TUNNELED (N/A) SUBJECTIVE / INTERVAL UPDATE Patient resting in bed. No major complaints this AM. Does report rectal pain is still present but seems to be a bit improved from admission. Also reporting soreness around site of line insertion. Will plan for discharge tomorrow. OBJECTIVE: BP 104/63 (BP Location: Right arm, BP Position: Lying) Pulse 71 Temp 99.6 F (37.6 C) (Oral) Resp 15 Ht 1.676 m (5' 6) Wt 43.5 kg (96 lb) SpO2 99% BMI 15.49 kg/m Smoking Status Never Intake/Output Summary (Last 24 hours) at 12/30/2024 0913 Last data filed at 12/30/2024 0512 Gross per 24 hour Intake 400 ml Output 225 ml Net 175 ml Physical Exam: General: No acute distress Neuro: alert and oriented x 3 Cardiovascular: regular rate and rhythm, no murmurs, rubs, gallops Pulmonary: CTAB, unlabored on RA Abdomen: soft, mildly distended, chevron healed Extremities: warm and well perfused, no BLE edema Skin: no lesions Lines: Central Line PMH/PSH/ROS: Refer to H&P Medications: Refer to MAR Labs: Lab Results Component Value Date WBC 2.22 (L) 12/30/2024 HGB 9.9 (L) 12/30/2024 HCT 31.5 (L) 12/30/2024 PLATELET 455 (H) 12/30/2024 MCV 89.7 12/30/2024 Lab Results Component Value Date SODIUM 134 (L) 12/30/2024 POTASSIUM 4.8 12/30/2024 CHLORIDE 102 12/30/2024 CO2 22 12/30/2024 BUN 23 12/30/2024 CREATSERUM 0.89 12/30/2024 GLUCOSE 89 12/30/2024 Lab Results Component Value Date ALT 5 (L) 12/30/2024 AST 14 12/30/2024 GGT 30 12/14/2024 ALKPHOS 592 (H) 12/30/2024 BILITOTAL 0.3 12/30/2024 BILIDIRECT 0.1 12/30/2024 Lab Results Component Value Date TACROLIMUS 6.9 12/29/2024 TACROLIMUS 13.6 12/28/2024 TACROLIMUS 5.9 08/09/2024 ASSESSMENT/PLAN Jc Dunaway is a 59 y.o. male with PMHx of colon cancer, UC, PSC cirrhosis s/p OLT 05/25/24 ([place]) w/ Janay-en-Y choledochojejunostomy with post op course c/b bile leak at choledochojejunostomy, bowel obstruction, and bacteremia. Now presenting to [facility] 12/26/24 due to elevated alk phos and anemia. Immunosuppression: tacrolimus: 3 mg AM, 2 mg PM (Trough goal 6-8) - resumed 12/29 mycophenolate mofetil: 250 mg bid Serology/Immunology CMV status D+/R- EBV D+/R+ Toxo IgG - Donor with risk criteria no Donor HCV Ab -/MYLA - Donor Hep B cAB positive Entecavir Graft Function ALP elevated, LFTs otherwise stable/WNL Continued Ursodiol 600 mg Given RNY, MRI/MRCP obtained 12/30, read pending Liver US 12/27 with patent vasculature, expected pneumobilia Hepatology following Immunosuppression as outlined above Continued Entecavir for donor Hep B cAB positive ALP now improving Rectal pain Reports rectal pain with bowel movements and blood in stools Has h/o UC and IPAA by Dr. Joiner in 2021 Noted concern for fistula on prior MRI done in September Had plans for outpatient rectal exam under anesthesia Colorectal surgery consulted, completed rectal exam 12/28 J pouch normal/healthy, inflammation and ulcerations in rectum Started on recommended steroid suppositories and Imodium Odynophagia / esophageal candidiasis Reports pain with swallowing and indigestion EGD 12/28 with esophageal candidiasis. Micafungin started 12/28 PICC consult placed, unable to place due to hx LUE thrombus and RUE small vessels Tunneled line placed 12/19 Transplant ID following, recommending 21 days of antibiotics (EOT 01/18) Continue PPI daily Leukopenia - improving WBC 1.95 with ANC 900 Possibly 2/2 medications (Valcyte, MMF) Reducing Valcyte to prophylatic dosing as below Could consider Neupogen for ANC <500 CMV viremia CMV PCRs up to 3.7K in September 2024 Has been on treatment dose Valcyte Most recent PCRs negative since 11/09/24 Will decrease to prophylactic dosing given high risk (D+/R-) Consider switching to Letermovir if leukopenia persists Anemia of Chronic Disease Baseline hgb ~8-10 Hgb currently stable Iron stores replete Monitor CBC daily and transfuse for Hgb <7 Nutrition: Regular diet Prophylaxis: DVT: SCDs 81 mg ASA Infectious: PCP prophylaxis: Bactrim CMV prophylaxis: Valcyte Discharge Social work consulted Expected discharge date: ~12/31 Discharge to: home Fall Risk: Assessed for patient fall risk and discussed safety measures during rounding. Quality Self-Check Complexity. Hyponatremia - Secondary to fluid shifts. Monitor. Hypocalcemia - Continue to monitor and replete. Underweight, Body mass index is 15.49 kg/m . - Monitor weight. Follow up with PCP. Malnutrition - Severe Protein-Calorie Malnutrition (POA) (12/27/2024 10:00 AM) secondary to Chronic Illness (12/27/2024 10:00 AM) - Reviewed and agree with registered account administrator's recommendations. Immunosuppression due to medication Wound Documentation Wound Traumatic Abrasion 12/26/241841 Distal;Left;Lower;Posterior Arm (Active) Date First Assessed/Time First Assessed: 12/26/241841 Primary Wound Type: Traumatic Secondary Wound Type - Traumatic: Abrasion Present on Original Admission: Yes Wound Location Orientation: Distal;Left;Lower;Posterior Location: Arm Wound Surgical 12/29/241106 Right Neck (Active) Date First Assessed/Time First Assessed: 12/29/241106 Primary Wound Type: Surgical Present on Original Admission: No Incision Type: puncture Wound Description: venotomy Wound Location Orientation: Right Location: Neck Any conditions listed below are present on admission unless otherwise specified. . Immunosuppression drug levels are being reviewed on a daily basis and appropriate dose changes are made based on these levels. The plan of care was discussed with the patient and nursing staff. All questions and concerns addressed. These multidisciplinary rounds were represented by transplant surgery including attending surgeon, fellow, advance practice provider and/or resident, transplant pharmacy, discharge planning and nursing. Cici Key PA-C Cosigned by Sonya Treviño MD, MPH at 12/30/2024 1:39 PM EDT Associated attestation - Sonya Treviño MD, MPH - 12/30/2024 1:39 PM EDT I, Sonya Treviño MD, MPH, have independently seen and examined the patient on 12/30/2024. I have reviewed the labs, discussed the patient with the fellow/resident/STEPHANIE and formulated the plan of care, as outlined in their note. I provided the substantial portion of care for this patient. Clinical Impression: history of UC s/p total proctocolectomy with IPAA, and PSC cirrhosis s/p DDLT with janay-en-y choledochojejunostomy post-op cource with small bowel obstruction with partial dehiscence of CDJ requiring ex lap, HARRY, and revision of CDJ 12/26/2024: direct admission, rectal pain with bloody BM and anemia, elevated ALP 12/28/2024: upper endoscopy (GI), pouchoscopy (ANKIT Joiner) 12/29/2024: tunneled line for outpatient anti-fungal treatment -MRI today, 12/30/2024 Graft Function: good liver graft function Assessment and Plan: -anal pain and bloody BM: pouchoscopy demonstrated anal ulcerations/inflammation; continue steroid suppositories and imodium -odynophagia: naeem esophagitis, micafungin x 21 days -elevated ALP: continue ursodiol, MRI abdomen with eovist and liver biopsy prior to any biliary intervention -donor HBV core antibody positive: continue entecavir -BPH: continue tamsulosin -CMV viremia: resolved, continue valcyte prophylaxis with acute issues Immunosuppression: -mycophenolate 250 mg BID -tacrolimus 4 mg BID, goal trough 6-8 Sonya Treviño MD, MPH TRANSPLANT SURGERY IMMUNOSUPPRESSION/ PROGRESS NOTE: Date of Service: 12/29/2024 Admit Date: 12/26/2024 Date of last transplant: 05/25/24 Surgery Post-op Days: * Day of Surgery * s/p Procedure(s) (LRB): INSERTION CVC TUNNELED (N/A) SUBJECTIVE / INTERVAL UPDATE Patient seen after tunneled line placement. Feeling well. No major complaints. MRI still pending. OBJECTIVE: BP 104/63 (BP Location: Right arm, BP Position: Lying) Pulse 73 Temp 98.6 F (37 C) (Oral) Resp 14 Ht 1.676 m (5' 6) Wt 43 kg (94 lb 12.8 oz) SpO2 98% BMI 15.30 kg/m Smoking Status Never Intake/Output Summary (Last 24 hours) at 12/29/2024 7784 Last data filed at 12/29/2024 0632 Gross per 24 hour Intake 1111 ml Output -- Net 1111 ml Physical Exam: General: No acute distress Neuro: alert and oriented x 3 Cardiovascular: regular rate and rhythm, no murmurs, rubs, gallops Pulmonary: CTAB, unlabored on RA Abdomen: soft, mildly distended, chevron healed Extremities: warm and well perfused, no BLE edema Skin: no lesions Lines: Central Line PMH/PSH/ROS: Refer to H&P Medications: Refer to MAR Labs: Lab Results Component Value Date WBC 2.46 (L) 12/29/2024 HGB 10.1 (L) 12/29/2024 HCT 32.3 (L) 12/29/2024 PLATELET 487 (H) 12/29/2024 MCV 88.0 12/29/2024 Lab Results Component Value Date SODIUM 138 12/29/2024 POTASSIUM 4.6 12/29/2024 CHLORIDE 104 12/29/2024 CO2 26 12/29/2024 BUN 29 (H) 12/29/2024 CREATSERUM 1.03 12/29/2024 GLUCOSE 97 12/29/2024 Lab Results Component Value Date ALT 6 (L) 12/29/2024 AST 10 12/29/2024 GGT 30 12/14/2024 ALKPHOS 628 (H) 12/29/2024 BILITOTAL 0.3 12/29/2024 BILIDIRECT 0.1 12/29/2024 Lab Results Component Value Date TACROLIMUS 6.9 12/29/2024 TACROLIMUS 13.6 12/28/2024 TACROLIMUS 5.9 08/09/2024 ASSESSMENT/PLAN Jc Dunaway is a 59 y.o. male with PMHx of colon cancer, UC, PSC cirrhosis s/p OLT 05/25/24 ([facility]) w/ Janay-en-Y choledochojejunostomy with post op course c/b bile leak at choledochojejunostomy, bowel obstruction, and bacteremia. Now presenting to [facility] 12/26/24 due to elevated alk phos and anemia. Immunosuppression: tacrolimus: 3 mg AM, 2 mg PM (Trough goal 6-8) - resumed 12/29 mycophenolate mofetil: 250 mg bid Serology/Immunology CMV status D+/R- EBV D+/R+ Toxo IgG - Donor with risk criteria no Donor HCV Ab -/MYLA - Donor Hep B cAB positive Entecavir Graft Function ALP elevated, LFTs otherwise stable/WNL Continued Ursodiol 600 mg Given RNY, MRI/MRCP to eval biliary tree ordered 12/27 - pending Liver US 12/27 with patent vasculature, expected pneumobilia Hepatology following Immunosuppression as outlined above Continued Entecavir for donor Hep B cAB positive Rectal pain Reports rectal pain with bowel movements and blood in stools Has h/o UC and IPAA by Dr. Joiner in 2021 Noted concern for fistula on prior MRI done in September Had plans for outpatient rectal exam under anesthesia Colorectal surgery consulted, completed rectal exam 12/28 J pouch normal/healthy, inflammation and ulcerations in rectum Started on recommended steroid suppositories and Imodium Odynophagia 2/2 esophageal candidiasis Reports pain with swallowing and indigestion EGD 12/28 with esophageal candidiasis. Micafungin started 12/28 PICC consult placed, unable to place due to hx LUE thrombus and RUE small vessels Tunneled line placed 12/19 Transplant ID following, recommending 21 days of antibiotics Continue PPI daily Leukopenia - improving WBC 1.95 with ANC 900 Possibly 2/2 medications (Valcyte, MMF) Reducing Valcyte to prophylatic dosing as below Could consider Neupogen for ANC <500 CMV viremia CMV PCRs up to 3.7K in September 2024 Has been on treatment dose Valcyte Most recent PCRs negative since 11/09/24 Will decrease to prophylactic dosing given high risk (D+/R-) Consider switching to Letermovir if leukopenia persists Anemia of Chronic Disease Baseline hgb ~8-10 Hgb currently stable Iron stores replete Monitor CBC daily and transfuse for Hgb <7 Nutrition: Regular diet Prophylaxis: DVT: SCDs 81 mg ASA - held on admission Infectious: PCP prophylaxis: Bactrim CMV prophylaxis: Valcyte Discharge Social work consulted Expected discharge date: TBD pending MRI Discharge to: home Fall Risk: Assessed for patient fall risk and discussed safety measures during rounding. Quality Self-Check Complexity. Hypocalcemia - Continue to monitor and replete. Underweight, Body mass index is 15.3 kg/m . - Monitor weight. Follow up with PCP. Malnutrition - Severe Protein-Calorie Malnutrition (POA) (12/27/2024 10:00 AM) secondary to Chronic Illness (12/27/2024 10:00 AM) - Reviewed and agree with registered account administrator's recommendations. Immunosuppression due to medication Wound Documentation Wound Traumatic Abrasion 12/26/241841 Distal;Left;Lower;Posterior Arm (Active) Date First Assessed/Time First Assessed: 12/26/241841 Primary Wound Type: Traumatic Secondary Wound Type - Traumatic: Abrasion Present on Original Admission: Yes Wound Location Orientation: Distal;Left;Lower;Posterior Location: Arm Wound Surgical 12/29/24 110 Right Neck (Active) Date First Assessed/Time First Assessed: 12/29/24 110 Primary Wound Type: Surgical Present on Original Admission: No Incision Type: puncture Wound Description: venotomy Wound Location Orientation: Right Location: Neck Any conditions listed below are present on admission unless otherwise specified. . Immunosuppression drug levels are being reviewed on a daily basis and appropriate dose changes are made based on these levels. The plan of care was discussed with the patient and nursing staff. All questions and concerns addressed. These multidisciplinary rounds were represented by transplant surgery including attending surgeon, fellow, advance practice provider and/or resident, transplant pharmacy, discharge planning and nursing. Cici Key PA-C Cosigned by Sonya Treviño MD, MPH at 12/30/2024 8:48 AM EDT Associated attestation - Sonya Treviño MD, MPH - 12/30/2024 8:48 AM EDT I, Sonya Treviño MD, MPH, have independently seen and examined the patient on 12/29/2024. I have reviewed the labs, discussed the patient with the fellow/resident/STEPHANIE and formulated the plan of care, as outlined in their note. I provided the substantial portion of care for this patient. Clinical Impression: history of UC s/p total proctocolectomy with IPAA, and PSC cirrhosis s/p DDLT with janay-en-y choledochojejunostomy post-op cource with small bowel obstruction with partial dehiscence of CDJ requiring ex lap, HARRY, and revision of CDJ 12/26/2024: direct admission, rectal pain with bloody BM and anemia, elevated ALP 12/28/2024: upper endoscopy (GI), pouchoscopy ([facility]) 12/29/2024: tunneled line for outpatient anti-fungal treatment -tunneled line for outpatient antifungal therapy Graft Function: good liver graft function Assessment and Plan: -anal pain and bloody BM: pouchoscopy demonstrated anal ulcerations/inflammation; continue steroid suppositories and imodium -odynophagia: naeem esophagitis, micafungin x 21 days -elevated ALP: continue ursodiol, MRI abdomen with eovist and liver biopsy prior to any biliary intervention -donor HBV core antibody positive: continue entecavir -BPH: continue tamsulosin -CMV viremia: resolved, continue valcyte prophylaxis with acute issues Immunosuppression: -mycophenolate 250 mg BID -tacrolimus 3 mg in am and 2 mg in pm, goal trough 6-8 Sonya Treviño MD, MPH Hepatobiliary Follow-Up Consult Note IDENTIFYING DATA/REASON FOR CONSULTATION PATIENT: Jc Dunaway ADMIT DATE: 12/26/2024 TIME OF EVALUATION: 12/29/2024 10:57 AM HOSPITAL STAY: LOS: 3 days REFERRING PHYSICIAN: Sonya Treviño MD, * REASON FOR CONSULTATION: s/p OLT SUBJECTIVE/INTERVAL HISTORY: No acute events HISTORY OF PRESENT ILLNESS: Jc Dunaway is a 59 y.o. 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 We have been consulted regarding s/p OLT. Fall Risk: Assessed for patient fall risk and discussed safety measures during rounding. Patient has a past medical history of colon cancer, UC s/p TPC/IPAA with pouch, and PSCC cirrhosis s/p DCD OLT 05/25/24 (D+/R-) with RNY choledochojejunostomy. Donor HBcAb positive. Post-op course c/b bile leak with re-do choledochojejunostomy and bowel obstruction at site of previous j-pouch; also with admission 07/2024 for new diarrhea with hematochezia and fevers; concern for Q fever for which patient was treated with doxycycline for 4 weeks. Patient presents with elevated LFTs and ongoing anemia. Also describes difficulty swallowing with epigastric pain and ongoing anorectal pain for which he saw Dr. Joiner in colorectal surgery. 12/28: EGD, esophageal candidiasis PAST MEDICAL, SURGICAL, FAMILY & SOCIAL HISTORY: Past Medical History[1] Past Surgical History[2] Family History Problem Relation Age of Onset Colorectal Cancer Neg Hx Social History[3] MEDICATIONS: SCHEDULED: [Held by provider] aspirin chewable tablet 81 mg, 81 mg, Daily [Held by provider] Enoxaparin Sodium (LOVENOX) injection 30 mg, 30 mg, Q24H Entecavir (BARACLUDE) tablet 0.5 mg, 0.5 mg, Daily Flumazenil (ROMAZICON) injection 0.2 mg, 0.2 mg, See admin instructions hydrocortisone (ANUSOL-HC) suppository 25 mg, 25 mg, BID Micafungin (MYCAMINE) 150 mg in Sodium chloride 0.9%, with overfill 125 mL (total volume) IVPB, 150 mg, Q24H Mycophenolate mofetil (CELLCEPT) capsule 250 mg, 250 mg, Q12HNS Naloxone (NARCAN) injection 0.1 mg, 0.1 mg, See admin instructions Or Naloxone (NARCAN) injection 0.4 mg, 0.4 mg, See admin instructions Pantoprazole (PROTONIX) injection 40 mg, 40 mg, Daily Sulfamethoxazole-trimethoprim (BACTRIM DS) 800-160 MG per tablet 1 tablet, 1 tablet, 3x weekly (non-std) [Held by provider] Tacrolimus (PROGRAF) capsule 4 mg, 4 mg, Daily And [Held by provider] Tacrolimus (PROGRAF) capsule 3 mg, 3 mg, Nightly Tamsulosin HCl (FLOMAX) capsule 0.4 mg, 0.4 mg, Daily ursodiol (ACTIGALL) capsule 600 mg, 600 mg, Q12H valGANciclovir (valCYTE) tablet 450 mg, 450 mg, Daily FLUIDS/DRIPS: PRNs: Acetaminophen, 650 mg, Q6H PRN fentaNYL, 0-300 mcg, As directed PRN Loperamide, 2 mg, Q4H PRN Midazolam, 0-10 mg, As directed PRN Ondansetron 4mg/2ml, 4 mg, Q6H PRN Or Ondansetron, 4 mg, Q6H PRN ondansetron, 4 mg, Once PRN Sodium chloride 0.9%, 250 mL, PRN ALLERGIES: He has no known allergies. REVIEW OF SYSTEMS; otherwise full ROS was reviewed and was otherwise negative Review of Systems Constitutional: Negative. HENT: Negative. Cardiovascular: Negative. Musculoskeletal: Negative. Psychiatric: Negative. Lymph/Heme: Negative. PHYSICAL EXAM: Temp: [97.9 F (36.6 C)-99.8 F (37.7 C)] 99.8 F (37.7 C) Pulse (Heart Rate): [70-87] 72 Resp Rate: [14-20] 15 BP: (100-148)/(58-73) 109/64 O2 Sat (%): [95 %-100 %] 96 % Weight: [43 kg (94 lb 12.8 oz)] 43 kg (94 lb 12.8 oz) I/O last 3 completed shifts: In: 1611 [P.O.:1211; I.V.:400] Out: 0 Oxygen Therapy: Oxygen Therapy O2 Sat (%): 96 % O2 Device: room air Constitutional: Breathing easily, in no acute distress. Does not appear cachectic. HEENT: PER, neg scleral icterus, normal appearing oropharynx, no appreciable cervical LAD Cardiovascular: Normal rate and regular rhythm. Pulmonary/Chest: Breath sounds normal. Abdominal: Soft. NT/ND. No appreciable HS. Extrem: No appreciable edema. No gross focal motor deficits in distal extrem. Neurological: sleeping on exam Skin: Does not appear jaundiced. LABS AND IMAGING: Recent Results (from the past 24 hours) CHEM 7 (LYTES,BUN,CREA,GLUC) Collection Time: 12/29/24 6:44 AM Result Value Ref Range Sodium 138 135 - 145 mmol/L Potassium 4.6 3.5 - 5.0 mmol/L Chloride 104 98 - 108 mmol/L CO2 26 21 - 31 mmol/L Glucose 97 Nonfastin-179 mg/dL; Fastin-99 mg/dL BUN 29 (H) 7 - 25 mg/dL Creatinine 1.03 0.70 - 1.30 mg/dL Bun/Crea Ratio 28 Osmolality (Calculated) 296 278 - 305 mOsm/kg Anion Gap 13 7 - 17 mmol/L eGFR, CKD-EPI, Male 83 >=60 mL/min/1.73m2 PHOSPHATE, INORGANIC Collection Time: 12/29/24 6:44 AM Result Value Ref Range Phosphorous 2.3 2.2 - 4.6 mg/dL MAGNESIUM Collection Time: 12/29/24 6:44 AM Result Value Ref Range Magnesium 1.9 1.6 - 2.6 mg/dL CALCIUM Collection Time: 12/29/24 6:44 AM Result Value Ref Range Calcium 8.5 (L) 8.6 - 10.5 mg/dL HEPATIC FUNCTION PANEL Collection Time: 12/29/24 6:44 AM Result Value Ref Range Albumin 3.2 (L) 3.5 - 5.0 g/dL Bilirubin Direct 0.1 <0.3 mg/dL Bilirubin Total 0.3 <1.5 mg/dL ALP 628 (H) 32 - 126 U/L ALT 6 (L) 10 - 52 U/L AST 10 10 - 39 U/L Total Protein 6.1 (L) 6.4 - 8.3 g/dL PT,INR,PTT Collection Time: 12/29/24 6:44 AM Result Value Ref Range PT 15.7 (H) 11.9 - 14.2 sec INR 1.2 (H) 0.9 - 1.1 PTT 30.4 24.0 - 34.3 sec TACROLIMUS LEVEL, TROUGH (PRE DRUG LEVEL) Collection Time: 12/29/24 6:44 AM Result Value Ref Range Tacrolimus, Trough 6.9 Bone Marrow Transplant: 5.0-15.0 Kidney/Pancreatic Transplant: 0 to 3 months: 8.0-10.0, 3 to 12 months: 6.0-8.0, >12 months: 4.0-6.0 ng/mL CBC AND ELECTRONIC DIFF Collection Time: 12/29/24 6:44 AM Result Value Ref Range WBC Count 2.46 (L) 3.73 - 10.10 K/uL RBC Count 3.67 (L) 4.38 - 5.83 M/uL Hemoglobin 10.1 (L) 13.4 - 16.8 g/dL Hematocrit 32.3 (L) 39.6 - 48.8 % Mean Cell Volume 88.0 79.0 - 94.5 fL Mean Cell Hgb 27.5 26.1 - 33.3 pg Mean Cell Hgb Conc 31.3 (L) 31.9 - 36.5 g/dL RBC Distribution 17.3 (H) 10.9 - 14.3 % Platelet Count 487 (H) 146 - 337 K/uL Mean Platelet Volume 9.7 8.7 - 12.3 fL MANUAL DIFF Collection Time: 12/29/24 6:44 AM Result Value Ref Range DIFF STATUS Manual Differential Nucleated RBC 1.0 (H) 0.0 - 0.2 /100 WBC Bands Relative 0.0 % Segs Relative 49.2 % Lymph Relative 37.9 % Tama Relative 11.2 % Eos Relative 0.0 % Baso Relative 1.7 % Segs & Bands, Absolute 1.21 (L) 1.57 - 6.19 K/uL Abs Lymph Manual 0.93 0.83 - 3.57 K/uL Abs Tama Manual 0.28 0.24 - 0.93 K/uL Abs Eos Manual 0.00 0.00 - 0.48 K\uL Abs Baso Manual 0.04 0.00 - 0.09 K/uL RBC Morphology RBC INDICES CONFIRMED WITH MANUAL SLIDE REVIEW Platelet Estimate Automated platelet count confirmed by manual slide review Echinocytes Present (A) (none) Target Cells Present (A) (none) Other Labs Reviewed. Imaging 12/27/24 - US Abdomen Liver Doppler 1. Marked scattered pneumobilia. Correlation with dedicated CT of the abdomen and pelvis is recommended. 2. Patent transplant vasculature. 10/23/24 - MRI Pelvis with/without contrast 1. Questionable intersphincteric sinus tract involving the lower anal canal without apparent cutaneous opening. No perianal abscesses or active inflammatory bowel disease. 2. Left presacral collection is stable in size and is consistent with a hematoma. ASSESSMENT & RECOMMENDATIONS: Jc Dunaway is a 59 y.o. 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 We have been consulted regarding s/p OLT. IMPRESSION: PSC cirrhosis s/p DCD OLT 05/25/24 (D+/R-) with RNY choledochojejunostomy Donor HBcAb positive Hx colon cancer Hx UC s/p TPC/IPAA with pouch Anemia Elevated LFTs Anorectal pain IS: -MMF 250 mg BID -Tacrolimus 4 mg QAM / 3 mg QPM (trough 6.9, 12/29) - holding RECOMMENDATIONS: -Would restart tacrolimus at 2 mg BID today -EGD 12/28 with esophageal candidiasis. Will need anti-fungal treatment for 21 days; given hx naeem auris, plan for treatment with micafungin per ID. -Neutropenia improved, would consider switching from valcyte to letermovir (prior h/o CMV viremia); repeat PCRs negative. -Alk phos significantly elevated. Given patient has RNY choledochojejunostomy, would obtain MRI/MRCP for further evaluation (ordered). Liver doppler with marked pneumobilia and patent vasculature. -Patient has ongoing anorectal pain; prior h/o colon cancer and UC for which he underwent TPC/IPAA with pouch - follows with colorectal surgery and recently saw Dr. Joiner. Colorectal following, pouchoscopy 12/28 with normal appearing J-pouch and inflammation/ulcerations in rectum, recommending steroid suppositories for inflammation. Bx pending. -Continue entecavir (renally dosed) given donor HBcAb positive. -IS otherwise as above; antiviral/antibacterial ppx per protocol -Plan of care discussed with transplant surgery -Will continue to follow. Perlita Armijo APRN-[facility] Transplant Hepatology Nurse Practitioner For contact information (pager), please go to [facility] > Internal Medicine > Gastroenterology, Hepatology, & Nutrition I have spent 36 minutes in patient care related activities for this patient (chart review, direct patient contact, documentation, communication, and multi-disciplinary rounds). If you have any questions or need any further information, please feel free to contact our consult team. Thank you for allowing us to participate in the care of Jc Dunaway. [1] Past Medical History: Diagnosis Date Cirrhosis of liver not due to alcohol 03/15/2024 Colon cancer 10/2020 Primary sclerosing cholangitis Ulcerative colitis diagnosed in the 80s- no surgery [2] Past Surgical History: Procedure Laterality Date LAPAROTOMY EXPLORATORY N/A 06/03/2024 Laterality: N/A; Surgeon: Dalia Thomas MD; Location: [facility] MAIN OR LIVER TRANSPLANT, ORTHOTOPIC N/A 05/25/2024 Laterality: N/A; Surgeon: Dalia Thomas MD; Location: [facility] MA[facility] OR EXAM UNDER ANESTHESIA ANORECTAL N/A 02/28/2022 Laterality: N/A; Surgeon: Miroslava Joiner MD; Location: [facility] PERIOP ENDOSCOPY SMALL INTESTINE POUCH DIAGNOSTIC N/A 02/28/2022 Laterality: N/A; Surgeon: Miroslava Joiner MD; Location: [facility] PERIOP LOOP ILEOSTOMY CLOSURE N/A 06/04/2021 Laterality: N/A; Surgeon: Miroslava Joiner MD; Location: [facility] MAIN OR ENDOSCOPY SMALL INTESTINE POUCH DIAGNOSTIC N/A 04/22/2021 Laterality: N/A; Surgeon: Miroslava Joiner MD; Location: [facility] ENDOSCOPY COLOPROCTECTOMY TOTAL W/ LOOP ILEOSTOMY OR CREATION ILEAL RESERVOIR LAPAROSCOPIC N/A 02/12/2021 Laterality: N/A; Surgeon: Miroslava Joiner MD; Location: [facility] MAIN OR SIGMOIDOSCOPY DIAGNOSTIC N/A 02/04/2021 Laterality: N/A; Surgeon: Miroslava Joiner MD; Location: [facility] ENDOSCOPY HIP REPLACEMENT Left 2005 COLONOSCOPY DIAGNOSTIC Nov 20202001 [3] Social History Socioeconomic History Marital status: Tobacco Use Smoking status: Never Smokeless tobacco: Never Vaping Use Vaping status: Never Used Substance and Sexual Activity Alcohol use: Not Currently Drug use: Not Currently Social Drivers of Health Financial Resource Strain: Low Risk (05/26/2024) Overall Financial Resource Strain (CARDIA) Difficulty of Paying Living Expenses: Not hard at all Food Insecurity: No Food Insecurity (12/27/2024) NCSS - Food Insecurity Worried About Running Out of Food in the Last Year: No Ran Out of Food in the Last Year: No Transportation Needs: No Transportation Needs (12/27/2024) NCSS - Transportation Lack of Transportation: No Personal Safety: Not At Risk (12/27/2024) NCSS - Interpersonal Safety Feels Physically and Emotionally Safe: Yes Physically Hurt by Someone: No Humiliated or Emotionally Abused by Someone: No Housing Stability: Not At Risk (12/27/2024) NCSS - Housing/Utilities Has Housing: Yes Worried About Losing Housing: No Unable to Get Utilities: No Cosigned by CHAN Pina at 12/29/2024 4:14 PM EDT Associated attestation - Francia Ware MBBS - 12/29/2024 4:14 PM EDT ATTENDING STATEMENT: I have personally seen and examined this patient independently. All pertinent data has been reviewed. I agree with the resident/fellow dictated impression and plan. Jc Dunaway is 59 male with PSC cirrhosis s/p DCD OLT 05/25/24 (D+/R-) with RNY choledocho-jejunostomy. He also has Ulcerative colitis. We have been consulted regarding s/p OLT. Admitted with low HB, raised ALP and anorectal pain Labs showed low WBC count. -EGD 12/28 with esophageal candidiasis. Will need anti-fungal treatment for 21 days; given hx naeem auris, plan for treatment with micafungin per ID. IS: -MMF 250 mg BID -Tacrolimus 4 mg QAM / 3 mg QPM (trough 6.9, 12/29) - Alk phos significantly elevated. Given patient has RNY choledochojejunostomy, awaiting MRI/MRCP for further evaluation. Francia GILES, MSc Professor-Clinical Medicine Department of Medicine [facility], [place], [place] Pt to IR via staff Colorectal Surgery Progress Note S: No acute events overnight. States that rectal pain is about the same. Endorses having 5 BM yesterday. O: BP 116/64 (BP Location: Right arm, BP Position: Lying) Pulse 76 Temp 99.8 F (37.7 C) (Oral) Resp 16 Ht 1.676 m (5' 6) Wt 43 kg (94 lb 12.8 oz) SpO2 97% BMI 15.30 kg/m Smoking Status Never I/O last 3 completed shifts: In: 1611 [P.O.:1211; I.V.:400] Out: 0 Physical Exam: General: no acute distress, appears stated age, resting comfortably, very pleasant Neurological: alert and oriented Cardio: normocardic, normotensive, hemodynamically stable Respiratory: no increased work of breathing Abdomen: soft, nontender, nondistended, no rebound, guarding, or rigidity /GI: Tolerable rectal pain this AA Skin: extremities warm Labs: WBC/Hgb/Hct/Plts: 2.46/10.1/32.3/487 (12/30 643) Na/K+/Phos/Mg/Ca: 138/4.6/2.3/1.9/8.5 (12/30 643) Bun/Creat/Cl/CO2/Glucose: 29/1.03/104/26/97 (12/30 643) A/P: Jc Dunaway is a 59 y.o. male with PMH of colon cancer, UC with IPAA by Dr. Joiner in 2020, loop ileostomy closure on 06/04/2021. , PSC, ETOH cirrhosis s/p OLT 05/25/24 ([facility]) who presents to [facility] 12/26/24 due to elevated alk phos, ERCP and anemia workup. CRS consulted to evaluate patient for ongoing severe rectal pain and concern for fistula. No acute surgical intervention indicated at this time No plans for diversion this admission Can continue regular diet Recommend steroid suppository Rest of care per primary team CRS will follow peripherally Les Bosch MD Acute Care Surgery 12/29/24 Cosigned by Elizabeth Burns MD at 12/31/2024 10:56 AM EDT Outpatient Parenteral Antibiotic Therapy (OPAT): For patients who will be discharged on parenteral (IV) antibiotic therapy, please utilize the OPAT discharge orderset. For patients who are on oral antibiotic therapy, utilization of this orderset is not necessary. 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 Please evaluate the patient's medication list and carefully verify their dosing, and infusion rate prior to discharge. Do not hesitate to call the on-call ID Team with any questions. Estimated Creatinine Clearance: 48 mL/min (by C-G formula based on SCr of 1 mg/dL). - Micafungin 150 mg every 24 hour as an intermittent infusion Duration of Therapy: Total Duration of therapy: 21 days Micafungin - Start Date: 12/28/2024, Stop Date: 01/28/2025 Does Patient Need Oral Antibiotic Therapy at the End of Parenteral Therapy: No OPAT ID Providers: (ID Attending): Dr. Hosea Odell Labs: Please have the [facility] or [facility] obtain the following labs and fax to [phone], attention (ID Attending): Dr. Hosea Odell - Chem-6 (Including serum creatinine) without Glucose every Thursday - Hepatic Function Panel every Thursday Imaging: No Follow-up: No - patient does not require follow-up in the ID Clinic If the patient is being discharged to a [facility] ([facility]), we will defer ID Care to the Infectious Disease Providers at the LTACH facility. Please instruct the facility that if the patient requires ID Follow-up after discharge, then they should call our office to arrange for an appointment. Central Access: Can Central Access be removed at the end of therapy: Yes Additional notes: None Lab Results Component Value Date HEPCAB Negative 05/25/2024 HEPCAB Negative 05/25/2024 HEPCAB Negative 03/15/2024 HEPCPCRQN <12 05/25/2024 Shay Arciniega MD Cosigned by Hosea Odell DO at 12/28/2024 7:56 PM EDT Hepatobiliary Follow-Up Consult Note IDENTIFYING DATA/REASON FOR CONSULTATION PATIENT: Jc Dunaway ADMIT DATE: 12/26/2024 TIME OF EVALUATION: 12/28/2024 10:42 AM HOSPITAL STAY: LOS: 2 days REFERRING PHYSICIAN: Sonya Treviño MD, * REASON FOR CONSULTATION: s/p OLT SUBJECTIVE/INTERVAL HISTORY: No acute events HISTORY OF PRESENT ILLNESS: Jc Dunaway is a 59 y.o. 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 We have been consulted regarding s/p OLT. Fall Risk: Assessed for patient fall risk and discussed safety measures during rounding. Patient has a past medical history of colon cancer, UC s/p TPC/IPAA with pouch, and PSCC cirrhosis s/p DCD OLT 05/25/24 (D+/R-) with RNY choledochojejunostomy. Donor HBcAb positive. Post-op course c/b bile leak with re-do choledochojejunostomy and bowel obstruction at site of previous j-pouch; also with admission 07/2024 for new diarrhea with hematochezia and fevers; concern for Q fever for which patient was treated with doxycycline for 4 weeks. Patient presents with elevated LFTs and ongoing anemia. Also describes difficulty swallowing with epigastric pain and ongoing anorectal pain for which he saw Dr. Joiner in colorectal surgery. 12/28: EGD, esophageal candidiasis PAST MEDICAL, SURGICAL, FAMILY & SOCIAL HISTORY: Past Medical History[1] Past Surgical History[2] Family History Problem Relation Age of Onset Colorectal Cancer Neg Hx Social History[3] MEDICATIONS: SCHEDULED: [Held by provider] aspirin chewable tablet 81 mg, 81 mg, Daily [Held by provider] Enoxaparin Sodium (LOVENOX) injection 30 mg, 30 mg, Q24H Entecavir (BARACLUDE) tablet 0.5 mg, 0.5 mg, Daily Mycophenolate mofetil (CELLCEPT) capsule 250 mg, 250 mg, Q12HNS Pantoprazole (PROTONIX) injection 40 mg, 40 mg, Daily Sulfamethoxazole-trimethoprim (BACTRIM DS) 800-160 MG per tablet 1 tablet, 1 tablet, 3x weekly (non-std) Tacrolimus (PROGRAF) capsule 4 mg, 4 mg, Daily And Tacrolimus (PROGRAF) capsule 3 mg, 3 mg, Nightly Tamsulosin HCl (FLOMAX) capsule 0.4 mg, 0.4 mg, Daily ursodiol (ACTIGALL) capsule 600 mg, 600 mg, Q12H valGANciclovir (valCYTE) tablet 450 mg, 450 mg, Daily FLUIDS/DRIPS: PRNs: Acetaminophen, 650 mg, Q6H PRN Ondansetron 4mg/2ml, 4 mg, Q6H PRN Or Ondansetron, 4 mg, Q6H PRN Sodium chloride 0.9%, 250 mL, PRN ALLERGIES: He has no known allergies. REVIEW OF SYSTEMS; otherwise full ROS was reviewed and was otherwise negative Review of Systems Constitutional: Negative. HENT: Negative. Cardiovascular: Negative. Musculoskeletal: Negative. Psychiatric: Negative. Lymph/Heme: Negative. PHYSICAL EXAM: Temp: [97.3 F (36.3 C)-99.1 F (37.3 C)] 97.3 F (36.3 C) Pulse (Heart Rate): [62-84] 67 Resp Rate: [12-20] 16 BP: (92-124)/(51-73) 122/65 O2 Sat (%): [97 %-100 %] 100 % I/O last 3 completed shifts: In: 0 Out: 250 [Urine:250] Oxygen Therapy: Oxygen Therapy O2 Sat (%): 100 % O2 Device: room air Constitutional: Breathing easily, in no acute distress. Does not appear cachectic. HEENT: PER, neg scleral icterus, normal appearing oropharynx, no appreciable cervical LAD Cardiovascular: Normal rate and regular rhythm. Pulmonary/Chest: Breath sounds normal. Abdominal: Soft. NT/ND. No appreciable HS. Extrem: No appreciable edema. No gross focal motor deficits in distal extrem. Neurological: sleeping on exam Skin: Does not appear jaundiced. LABS AND IMAGING: Recent Results (from the past 24 hours) CBC,PLATELETS Collection Time: 12/28/24 5:54 AM Result Value Ref Range WBC Count 2.11 (L) 3.73 - 10.10 K/uL RBC Count 3.74 (L) 4.38 - 5.83 M/uL Hemoglobin 10.4 (L) 13.4 - 16.8 g/dL Hematocrit 32.2 (L) 39.6 - 48.8 % Mean Cell Volume 86.1 79.0 - 94.5 fL Mean Cell Hgb 27.8 26.1 - 33.3 pg Mean Cell Hgb Conc 32.3 31.9 - 36.5 g/dL RBC Distribution 17.6 (H) 10.9 - 14.3 % Platelet Count 524 (H) 146 - 337 K/uL Mean Platelet Volume 9.5 8.7 - 12.3 fL CHEM 7 (LYTES,BUN,CREA,GLUC) Collection Time: 12/28/24 5:54 AM Result Value Ref Range Sodium 133 (L) 135 - 145 mmol/L Potassium 4.4 3.5 - 5.0 mmol/L Chloride 101 98 - 108 mmol/L CO2 24 21 - 31 mmol/L Glucose 100 Nonfastin-179 mg/dL; Fastin-99 mg/dL BUN 28 (H) 7 - 25 mg/dL Creatinine 1.00 0.70 - 1.30 mg/dL Bun/Crea Ratio 28 Osmolality (Calculated) 286 278 - 305 mOsm/kg Anion Gap 12 7 - 17 mmol/L eGFR, CKD-EPI, Male 86 >=60 mL/min/1.73m2 HEPATIC FUNCTION PANEL Collection Time: 12/28/24 5:54 AM Result Value Ref Range Albumin 3.1 (L) 3.5 - 5.0 g/dL Bilirubin Direct 0.1 <0.3 mg/dL Bilirubin Total 0.4 <1.5 mg/dL ALP 683 (H) 32 - 126 U/L ALT 5 (L) 10 - 52 U/L AST 12 10 - 39 U/L Total Protein 5.9 (L) 6.4 - 8.3 g/dL TACROLIMUS LEVEL, TROUGH (PRE DRUG LEVEL) Collection Time: 12/28/24 5:54 AM Result Value Ref Range Tacrolimus, Trough 13.6 Bone Marrow Transplant: 5.0-15.0 Kidney/Pancreatic Transplant: 0 to 3 months: 8.0-10.0, 3 to 12 months: 6.0-8.0, >12 months: 4.0-6.0 ng/mL ELECTRONIC DIFF Collection Time: 12/28/24 5:54 AM Result Value Ref Range Segs + Bands Auto Lymphocyte % Auto Monocyte % Auto Eosinophil % Auto Basophil % Auto Immature Grans % Nucleated RBC Segs + Bands,Absolute Auto Abs Lymph Auto Abs Tama Auto Abs Eos Auto Abs Baso Auto Immature Grans Absolute MANUAL DIFF Collection Time: 12/28/24 5:54 AM Result Value Ref Range DIFF STATUS Manual Differential Nucleated RBC 1.0 (H) 0.0 - 0.2 /100 WBC Bands Relative 0.0 % Segs Relative 52.7 % Lymph Relative 20.5 % Tama Relative 26.0 % Eos Relative 0.8 % Baso Relative 0.0 % Segs & Bands, Absolute 1.11 (L) 1.57 - 6.19 K/uL Abs Lymph Manual 0.43 (L) 0.83 - 3.57 K/uL Abs Tama Manual 0.55 0.24 - 0.93 K/uL Abs Eos Manual 0.02 0.00 - 0.48 K\uL Abs Baso Manual 0.00 0.00 - 0.09 K/uL RBC Morphology RBC INDICES CONFIRMED WITH MANUAL SLIDE REVIEW Platelet Estimate Automated platelet count confirmed by manual slide review Echinocytes Present (A) (none) Other Labs Reviewed. Imaging 12/27/24 - US Abdomen Liver Doppler 1. Marked scattered pneumobilia. Correlation with dedicated CT of the abdomen and pelvis is recommended. 2. Patent transplant vasculature. 10/23/24 - MRI Pelvis with/without contrast 1. Questionable intersphincteric sinus tract involving the lower anal canal without apparent cutaneous opening. No perianal abscesses or active inflammatory bowel disease. 2. Left presacral collection is stable in size and is consistent with a hematoma. ASSESSMENT & RECOMMENDATIONS: Jc Dunaway is a 59 y.o. 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 We have been consulted regarding s/p OLT. IMPRESSION: PSC cirrhosis s/p DCD OLT 05/25/24 (D+/R-) with RNY choledochojejunostomy Donor HBcAb positive Hx colon cancer Hx UC s/p TPC/IPAA with pouch Anemia Elevated LFTs Anorectal pain IS: -MMF 250 mg BID -Tacrolimus 4 mg QAM / 3 mg QPM (trough 13.6, 12/28) RECOMMENDATIONS: -Would hold tacrolimus given supratherapeutic trough -EGD this AM with esophageal candidiasis. Will need anti-fungal treatment for 21 days; given high tac trough would start micafungin today and plan to start fluconazole once tac trough is at normal range. -Neutropenia improved, would consider switching from valcyte to letermovir (prior h/o CMV viremia); repeat PCRs pending. -Would consider switching MMF to prednisone 5 mg daily as well. -Alk phos significantly elevated. Given patient has RNY choledochojejunostomy, would obtain MRI/MRCP for further evaluation (ordered). Liver doppler with marked pneumobilia and patent vasculature. -Patient has ongoing anorectal pain; prior h/o colon cancer and UC for which he underwent TPC/IPAA with pouch - follows with colorectal surgery and recently saw Dr. Joiner. Colorectal following with normal appearing J-pouch and inflammation/ulcerations in rectum, recommending steroid suppositories for inflammation and imodium - would order. Bx pending. -Continue entecavir (renally dosed) given donor HBcAb positive. -IS otherwise as above; antiviral/antibacterial ppx per protocol -Plan of care discussed with transplant surgery -Will continue to follow. Perlita Armijo APRN-[facility] Transplant Hepatology Nurse Practitioner For contact information (pager), please go to [facility] > Internal Medicine > Gastroenterology, Hepatology, & Nutrition I have spent 40 minutes in patient care related activities for this patient (chart review, direct patient contact, documentation, communication, and multi-disciplinary rounds). If you have any questions or need any further information, please feel free to contact our consult team. Thank you for allowing us to participate in the care of Jc Dunaway. [1] Past Medical History: Diagnosis Date Cirrhosis of liver not due to alcohol 03/15/2024 Colon cancer 10/2020 Primary sclerosing cholangitis Ulcerative colitis diagnosed in the 80s- no surgery [2] Past Surgical History: Procedure Laterality Date LAPAROTOMY EXPLORATORY N/A 06/03/2024 Laterality: N/A; Surgeon: Dalia Thomas MD; Location: [facility] MAIN OR LIVER TRANSPLANT, ORTHOTOPIC N/A 05/25/2024 Laterality: N/A; Surgeon: Dalia Thomas MD; Location: [facility] MAIN OR EXAM UNDER ANESTHESIA ANORECTAL N/A 02/28/2022 Laterality: N/A; Surgeon: Miroslava Joiner MD; Location: [facility] PERIOP ENDOSCOPY SMALL INTESTINE POUCH DIAGNOSTIC N/A 02/28/2022 Laterality: N/A; Surgeon: Miroslava Joiner MD; Location: [facility] PERIOP LOOP ILEOSTOMY CLOSURE N/A 06/04/2021 Laterality: N/A; Surgeon: Miroslava Joiner MD; Location: [facility] ENDOSCOPY SMALL INTESTINE POUCH DIAGNOSTIC N/A 04/22/2021 Laterality: N/A; Surgeon: Miroslava Joiner MD; Location: [facility] ENDOSCOPY COLOPROCTECTOMY TOTAL W/ LOOP ILEOSTOMY OR CREATION ILEAL RESERVOIR LAPAROSCOPIC N/A 02/12/2021 Laterality: N/A; Surgeon: Miroslava Joiner MD; Location: [facility] MAIN OR SIGMOIDOSCOPY DIAGNOSTIC N/A 02/04/2021 Laterality: N/A; Surgeon: Miroslava Joiner MD; Location: [facility] ENDOSCOPY HIP REPLACEMENT Left 2005 COLONOSCOPY DIAGNOSTIC Nov 20202001 [3] Social History Socioeconomic History Marital status: Tobacco Use Smoking status: Never Smokeless tobacco: Never Vaping Use Vaping status: Never Used Substance and Sexual Activity Alcohol use: Not Currently Drug use: Not Currently Social Drivers of Health Financial Resource Strain: Low Risk (05/26/2024) Overall Financial Resource Strain (CARDIA) Difficulty of Paying Living Expenses: Not hard at all Food Insecurity: No Food Insecurity (12/27/2024) NCSS - Food Insecurity Worried About Running Out of Food in the Last Year: No Ran Out of Food in the Last Year: No Transportation Needs: No Transportation Needs (12/27/2024) NCSS - Transportation Lack of Transportation: No Personal Safety: Not At Risk (12/27/2024) NCSS - Interpersonal Safety Feels Physically and Emotionally Safe: Yes Physically Hurt by Someone: No Humiliated or Emotionally Abused by Someone: No Housing Stability: Not At Risk (12/27/2024) NCSS - Housing/Utilities Has Housing: Yes Worried About Losing Housing: No Unable to Get Utilities: No Cosigned by CHAN Pina at 12/28/2024 4:28 PM EDT Associated attestation - Francia Ware MBBS - 12/28/2024 4:28 PM EDT ATTENDING STATEMENT: I have personally seen and examined this patient independently. All pertinent data has been reviewed. I agree with the resident/fellow dictated impression and plan. Jc Dunaway is 59 male with PSC cirrhosis s/p DCD OLT 05/25/24 (D+/R-) with RNY choledocho-jejunostomy. He also has Ulcerative colitis. We have been consulted regarding s/p OLT. Admitted with low HB, raised ALP and anorectal pain Labs showed low WBC count. #Seen prior to EGD -EGD this AM with esophageal candidiasis. Start micafungin today and plan to start fluconazole once tac trough is at normal range. IS: -MMF 250 mg BID -Tacrolimus 4 mg QAM / 3 mg QPM (trough 13.6, 12/28) -Neutropenia improved, would consider switching from valcyte to letermovir (prior h/o CMV viremia); repeat PCRs pending. - Consider hold TAC. - Would consider switching MMF to prednisone 5 mg daily as well. - Alk phos significantly elevated. Given patient has RNY choledochojejunostomy, would obtain MRI/MRCP for further evaluation. -Patient has ongoing anorectal pain; seeing CR surgery - Would ensure entecavir ppx is appropriately dosed given normal renal fx - IS otherwise as above; antiviral/antibacterial ppx per protocol - Plan of care discussed with transplant surgery Francia GILES, MSc Professor-Clinical Medicine Department of Medicine [facility], [place], [place] TRANSPLANT SURGERY IMMUNOSUPPRESSION/ PROGRESS NOTE: Date of Service: 12/28/2024 Admit Date: 12/26/2024 Date of last transplant: 05/25/24 Surgery Post-op Days: s/p Procedure(s) (LRB): EXAM UNDER ANESTHESIA ANORECTAL (N/A) SUBJECTIVE / INTERVAL UPDATE No acute events. Resting in bed. EGD shows esophageal candidiasis, so will need antifungal treatment x 21 days (starting Micafungin for now). Pouchoscopy with inflammation and ulcerations, but otherwise normal and healthy. Started steroid suppositories and Imodium PRN. AP remains elevated, MRCP ordered and will be completed tomorrow morning. Tacrolimus also on hold for supratherapeutic trough. OBJECTIVE: BP 121/64 (BP Location: Right arm, BP Position: Lying) Pulse 70 Temp 97.9 F (36.6 C) (Oral) Resp 16 Ht 1.676 m (5' 6) Wt 43 kg (94 lb 12.8 oz) SpO2 100% BMI 15.30 kg/m Smoking Status Never Intake/Output Summary (Last 24 hours) at 12/28/2024 1436 Last data filed at 12/28/2024 1035 Gross per 24 hour Intake 400 ml Output 0 ml Net 400 ml Physical Exam: General: No acute distress Neuro: alert and oriented x 3 Cardiovascular: regular rate and rhythm, no murmurs, rubs, gallops Pulmonary: CTAB Abdomen: soft, mildly distended, incision-clean, dry, intact with mary Extremities: warm and well perfused, no edema Skin: no lesions Lines: None PMH/PSH/ROS: Refer to H&P Medications: Refer to MAR Labs: Lab Results Component Value Date WBC 2.11 (L) 12/28/2024 HGB 10.4 (L) 12/28/2024 HCT 32.2 (L) 12/28/2024 PLATELET 524 (H) 12/28/2024 MCV 86.1 12/28/2024 Lab Results Component Value Date SODIUM 133 (L) 12/28/2024 POTASSIUM 4.4 12/28/2024 CHLORIDE 101 12/28/2024 CO2 24 12/28/2024 BUN 28 (H) 12/28/2024 CREATSERUM 1.00 12/28/2024 GLUCOSE 100 12/28/2024 Lab Results Component Value Date ALT 5 (L) 12/28/2024 AST 12 12/28/2024 GGT 30 12/14/2024 ALKPHOS 683 (H) 12/28/2024 BILITOTAL 0.4 12/28/2024 BILIDIRECT 0.1 12/28/2024 Lab Results Component Value Date TACROLIMUS 13.6 12/28/2024 TACROLIMUS 5.9 08/09/2024 TACROLIMUS 5.4 08/08/2024 ASSESSMENT/PLAN Jc Dunaway, 59 yr M w/ PMHx of colon cancer, UC, 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 Immunosuppression: tacrolimus: HOLD - trough 13.6 (Trough goal 6-8) mycophenolate mofetil: 250 mg bid Serology/Immunology CMV status D+/R- EBV D+/R+ Toxo IgG - Donor with risk criteria no Donor HCV Ab -/MYLA - Donor Hep B cAB positive Entecavir Graft Function ALP elevated, LFTs otherwise stable/WNL Continued Ursodiol 600 mg Given RNY, MRI/MRCP to eval biliary tree ordered 12/27 - pending Liver US also ordered 12/27 - with patent vasculature; expected pneumobilia Hepatology following Immunosuppression as outlined above Continued Entecavir for donor Hep B cAB positive Rectal pain Reports rectal pain with bowel movements and blood in stools Has h/o UC and IPAA by Dr. Joiner in 2021 Noted concern for fistula on prior MRI done in September Had plans for outpatient rectal exam under anesthesia Colorectal surgery consulted, completed rectal exam 12/28. J pouch normal/healthy, inflammation and ulcerations in rectum Started on recommended steroid suppositories and Imodium Odynophagia 2/2 esophageal candidiasis Reports pain with swallowing and indigestion EGD 12/28 with esophageal candidiasis. Planning to start micafungin PICC consult placed, unable to place due to hx LUE thrombus and RUE small vessels-- tunneled line recommended Transplant ID consultation placed Continue PPI daily Leukopenia WBC 1.95 with ANC 900 Possibly 2/2 medications (Valcyte, MMF) Reducing Valcyte to prophylatic dosing as below Could consider Neupogen for ANC <500 CMV viremia CMV PCRs up to 3.7K in September 2024 Has been on treatment dose Valcyte Most recent PCRs negative since 11/09/24 Will decrease to prophylactic dosing given high risk (D+/R-) Consider switching to Letermovir if leukopenia persists Anemia of Chronic Disease Baseline hgb ~8-10 Hgb currently stable Iron stores replete Monitor CBC daily and transfuse for Hgb <7 Nutrition: Regular diet; NPO at midnight Prophylaxis: DVT: SCDs 81 mg ASA - held on admission Infectious: PCP prophylaxis: Bactrim DS MWF CMV prophylaxis: Valcyte Discharge Social work consulted Expected discharge date: TBD Discharge to: home Fall Risk: Assessed for patient fall risk and discussed safety measures during rounding. Quality Self-Check Complexity. Hyponatremia - Secondary to fluid shifts. Monitor. Hypomagnesemia - Continue to monitor and replete. Underweight, Body mass index is 15.3 kg/m . - Monitor weight. Follow up with PCP. Malnutrition - Severe Protein-Calorie Malnutrition (POA) (12/27/2024 10:00 AM) secondary to Chronic Illness (12/27/2024 10:00 AM) - Reviewed and agree with registered account administrator's recommendations. Immunosuppression due to medication Wound Documentation Wound Traumatic Abrasion 12/26/241841 Distal;Left;Lower;Posterior Arm (Active) Date First Assessed/Time First Assessed: 12/26/241841 Primary Wound Type: Traumatic Secondary Wound Type - Traumatic: Abrasion Present on Original Admission: Yes Wound Location Orientation: Distal;Left;Lower;Posterior Location: Arm Any conditions listed below are present on admission unless otherwise specified. . Immunosuppression drug levels are being reviewed on a daily basis and appropriate dose changes are made based on these levels. The plan of care was discussed with the patient and nursing staff. All questions and concerns addressed. These multidisciplinary rounds were represented by transplant surgery including attending surgeon, fellow, advance practice provider and/or resident, transplant pharmacy, discharge planning and nursing. Kat Gamino APRN-[facility] Cosigned by Sonya Treviño MD, MPH at 12/28/2024 5:21 PM EDT Associated attestation - Sonya Treviño MD, MPH - 12/28/2024 5:21 PM EDT I, Sonya Treviño MD, MPH, have independently seen and examined the patient on 12/28/2024. I have reviewed the labs, discussed the patient with the fellow/resident/STEPHANIE and formulated the plan of care, as outlined in their note. I provided the substantial portion of care for this patient. Clinical Impression: history of UC s/p total proctocolectomy with IPAA, and PSC cirrhosis s/p DDLT with janay-en-y choledochojejunostomy post-op cource with small bowel obstruction with partial dehiscence of CDJ requiring ex lap, HARRY, and revision of CDJ 12/26/2024: direct admission, rectal pain with bloody BM and anemia, elevated ALP 12/27/2024: upper endoscopy (GI), pouchoscopy (ANKIT Joiner) -underwent scopes today, 12/28/2024 Graft Function: good liver graft function Assessment and Plan: -anal pain and bloody BM: pouchoscopy demonstrated anal ulcerations/inflammation; steroid suppositories and imodium -odynophagia: naeem esophagitis, micafungin x 21 days -elevated ALP: continue ursodiol, MRI abdomen with eovist and liver biopsy prior to any biliary intervention -donor HBV core antibody positive: continue entecavir -BPH: continue tamsulosin -CMV viremia: resolved, continue valcyte prophylaxis with acute issues Immunosuppression: -mycophenolate 250 mg BID -tacrolimus HOLD, goal trough 6-8 Sonya Treviño MD, MPH Portable US Liver Transplant Doppler completed. Report to follow. TRANSPLANT SURGERY IMMUNOSUPPRESSION/ PROGRESS NOTE: Date of Service: 12/27/2024 Admit Date: 12/26/2024 Date of last transplant: 05/25/24 SUBJECTIVE / INTERVAL UPDATE Readmission for elevated AlkPhos and anemia. Given RNY, will obtain MRCP today. Also reports pain with swallowing and indigestion. Also with rectal pain. Will plan for EGD tomorrow and colorectal surgery consulted to eval rectal pain. OBJECTIVE: BP 124/65 (BP Location: Right arm, BP Position: Lying) Pulse 77 Temp 99.1 F (37.3 C) (Oral) Resp 12 Ht 1.676 m (5' 6) Wt 45.3 kg (99 lb 14.4 oz) SpO2 97% BMI 16.12 kg/m Smoking Status Never Intake/Output Summary (Last 24 hours) at 12/27/2024 1515 Last data filed at 12/27/2024 1105 Gross per 24 hour Intake 453.08 ml Output 605 ml Net -151.92 ml Physical Exam: General: no acute distress Neuro: alert and oriented x 3 Cardiovascular: regular rate and rhythm, no murmurs, rubs, gallops Pulmonary: unlabored on RA Abdomen: soft, mildly distended, well healed incision Extremities: warm and well perfused Skin: no lesions Lines: PIV CENTRAL LINES: Central Line Indications: No line currently in place PMH/PSH/ROS: Refer to H&P Medications: Refer to MAR Labs: Lab Results Component Value Date WBC 1.95 (L) 12/27/2024 HGB 9.4 (L) 12/27/2024 HCT 29.1 (L) 12/27/2024 PLATELET 484 (H) 12/27/2024 MCV 85.1 12/27/2024 Lab Results Component Value Date SODIUM 136 12/27/2024 POTASSIUM 4.3 12/27/2024 CHLORIDE 103 12/27/2024 CO2 25 12/27/2024 BUN 23 12/27/2024 CREATSERUM 1.04 12/27/2024 GLUCOSE 89 12/27/2024 Lab Results Component Value Date ALT 8 (L) 12/27/2024 AST 11 12/27/2024 GGT 30 12/14/2024 ALKPHOS 667 (H) 12/27/2024 BILITOTAL 1.0 12/27/2024 BILIDIRECT 0.3 (H) 12/27/2024 Lab Results Component Value Date TACROLIMUS 5.9 08/09/2024 TACROLIMUS 5.4 08/08/2024 TACROLIMUS 5.6 08/07/2024 ASSESSMENT/PLAN Jc Dunaway, 59 yr M w/ PMHx of colon cancer, UC, 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 Immunosuppression: tacrolimus: 4 mg qAM / 3 mg qPM (Trough goal 6-8) mycophenolate mofetil: 250 mg bid Serology/Immunology CMV status D+/R- EBV D+/R+ Toxo IgG - Donor with risk criteria no Donor HCV Ab -/MYLA - Donor Hep B cAB positive Entecavir Graft Function ALP elevated, LFTs otherwise stable/WNL Continued Ursodiol 600 mg Given RNY, MRI/MRCP to eval biliary tree ordered 12/27 - pending Liver US also ordered 12/27 - pending Hepatology following Immunosuppression as outlined above Continued Entecavir for donor Hep B cAB positive Rectal pain Reports rectal pain with bowel movements and blood in stools Has h/o UC and IPAA by Dr. Joiner in 2021 Noted concern for fistula on prior MRI done in September Had plans for outpatient rectal exam under anesthesia Colorectal surgery consulted and planning to complete while inpatient NPO at midnight Odynophagia Reports pain with swallowing and indigestion Will plan for EGD tomorrow; NPO at midnight Continue PPI daily Leukopenia WBC 1.95 with ANC 900 Possibly 2/2 medications (Valcyte, MMF) Reducing Valcyte to prophylatic dosing as below Could consider Neupogen for ANC <500 CMV viremia CMV PCRs up to 3.7K in September 2024 Has been on treatment dose Valcyte Most recent PCRs negative since 11/09/24 Will decrease to prophylactic dosing given high risk (D+/R-) Could consider switching to Letermovir if leukopenia persists Anemia of Chronic Disease Baseline hgb ~8-10 Hgb currently stable Iron stores replete Monitor CBC daily and transfuse for Hgb <7 Nutrition: DIET NPO with meds DIET NPO with meds Prophylaxis: DVT: SCDs 81 mg ASA - held on admission Infectious: PCP prophylaxis: Bactrim DS MWF CMV prophylaxis: Valcyte Discharge Social work consulted Expected discharge date: TBD Discharge to: home Fall Risk: Assessed for patient fall risk and discussed safety measures during rounding. Complexity Quality Self-Check Complexity. Hypomagnesemia - Continue to monitor and replete. Underweight, Body mass index is 16.12 kg/m . - Monitor weight. Follow up with PCP. Malnutrition - Severe Protein-Calorie Malnutrition (POA) (12/27/2024 10:00 AM) secondary to Chronic Illness (12/27/2024 10:00 AM) - Reviewed and agree with registered account administrator's recommendations. Immunosuppression due to medication Wound Documentation Wound Traumatic Abrasion 12/26/241841 Distal;Left;Lower;Posterior Arm (Active) Date First Assessed/Time First Assessed: 12/26/241841 Primary Wound Type: Traumatic Secondary Wound Type - Traumatic: Abrasion Present on Original Admission: Yes Wound Location Orientation: Distal;Left;Lower;Posterior Location: Arm Any conditions listed below are present on admission unless otherwise specified. . . Immunosuppression drug levels are being reviewed on a daily basis and appropriate dose changes are made based on these levels. The plan of care was discussed with the patient and nursing staff. All questions and concerns addressed. These multidisciplinary rounds were represented by transplant surgery including attending surgeon, fellow, advance practice provider and/or resident, transplant pharmacy, discharge planning and nursing. Kat Gamino APRN-ROME Cosigned by Sonya Treviño MD, MPH at 12/27/2024 4:01 PM EDT Discharge Planning Assessment Is the patient able to participate in the assessment?: Yes Care Management Plan Patient s/p OLT 05/25/2024 readmitted to [facility]. Patient is independent with all ADLs, does not use any HHC or DME. Labs 1x weekly and denies any issues obtaining IS medication. Works outside of home - denies needing a work excuse when asked. Spouse is support and will transport home. Initial Discharge Planning Expected Discharge Disposition: Home Transportation Available for Discharge: Private Vehicle, Family or Friend (Spouse) Anticipated DME: none Anticipated Services at Discharge: Outpatient clinical services (ie: lab draws, transfusions, injectables), Outpatient follow up Patient Assessment Completed: Initial Legal Next of Kin Spouse: Yes Name and Contact information: Flaca Emelyn [phone] Adult Child(sujey), List All Adult Children: Yes Name and Contact information: Cuate Dunaway [phone] Would you like to add additional adult children?: Yes Name and Contact information: Leroy Dunaway [phone] Patient Reports No Relatives by Blood or Adoption.: No Reviewed and Updated in Demographics? : Yes Advanced Care Planning Has the patient completed Advance Directives?: Not Completed Medication Management Does the patient have prescription insurance coverage? : Yes Is the patient on Anticoagulation? : No [id number] [place] [address] - [phone] [facility] [id number] Living Environment and Support System Is the patient from a facility or halfway?: No Living Environment: House Patient Caregiving Responsibilities: Self Patient-identified caregiver/support network: Family Who does the patient identify as a teachable caregiver(s)?: Spouse or Partner Services Does the patient use a home health or hospice agency?: No Current with dialysis?: No Does the patient use any community programs or services?: No Does patient use DME? : none Does the patient use oxygen?: No Does patient use medical supplies? : none Anticipated Changes Related to Illness/Injury? : Unknown at this time Initial ADLs Prior to Arrival What is the patient's reported baseline physical functioning prior to this acute illness?: independent What is the patient's reported baseline cognitive functioning prior to this acute illness?: independent Is the patient's baseline functioning changed by this acute illness? : Unable to assess Concerns with patient being able to care for themselves at home? : No Reason for consult: Readmission Assessment Consulted by: KENNEDY Assessment: AGNES received consult for readmission assessment. Met with patient at bedside today. He is a 59 year old Female who received a liver transplant on 05/25/2024. He is alert, oriented x 4 . Prior to admission he was living with his spouse. He does not receive outside services and does not use durable medical equipment. He is independent with activities of daily living, including driving. Reviewed/updated demographic sheet. Patient denies history of mental health diagnoses, including depression, anxiety, and PTSD. Patient reports coping skills of watching sports/tv and reading. SW reviewed mental health symptoms and patient denies any current difficulties. Patient denies use of alcohol. Patient denies use of tobacco products. Patient denies use of non-prescribed substances. Patient continues to have [employer] insurance. Patient denies financial concerns, reports being able to meet monthly income needs and current medications. Currently receives employment wages for income. Patient will not need assistance with transportation home at discharge. Plan: 1 SW provided emotional support & reflective listening. 2 SW assessed for additional needs, no other needs identified at this time. 3 SW to continue to follow as needed. GABBY Belcher, PHOTOGRAPHER HELPER Apparel Rental Clerk Transplant 10R Available by Secure Chat NUTRITION ASSESSMENT Nutrition Recommendations and Plan of Care: 1. Resume Regular diet per care team. 2. Ensure Plus TID (350 kcal, 13 gm protein each) - Encourage soft, cyxi-ty-sfotlhhf food choices 3. RD to follow. Jc Munson Emelyn is a 59 y.o. 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 Nutrition: Pt seen at bedside. RD screened for BMI <17. Pt reports good appetite. States he has had decreased PO intake within the last 3-4 days d/t difficulties swallowing. Denies issues chewing, says he has to take it slow when eating meats and harder foods. Pt tolerates soft foods (cereal with milk, scrambled eggs, pudding). Typically eats 2 meals and 1 snack at home, states his UBW 98-100#, down from 105# last summer. Encouraged protein and kcal intake to maintain weight. Pt agreeable to Ensure Plus TID. Diet Order: NPO MN 12/27 for ERCP, Regular to be resumed after procedure Anthropometrics: Height: 167 cm / 66 in Weight: 45.3 kg / 99 lb IBW: 142 lb %IBW: 70% BMI: 16.12 Wt Readings from Last 20 Encounters: 12/26/24 45.3 kg (99 lb 14.4 oz) 12/01/24 45.7 kg (100 lb 12.8 oz) 10/23/24 45.4 kg (100 lb) 10/10/24 45.5 kg (100 lb 3.2 oz) 09/21/24 47.2 kg (104 lb) 09/21/24 47.2 kg (104 lb) 08/22/24 47.7 kg (105 lb 1.6 oz) 08/09/24 47.7 kg (105 lb 1.6 oz) 07/04/24 45.5 kg (100 lb 4.8 oz) 06/20/24 44 kg (97 lb 1.6 oz) 06/15/24 43.7 kg (96 lb 6.4 oz) 06/13/24 42.7 kg (94 lb 1.6 oz) 06/09/24 46.5 kg (102 lb 8.1 oz) 04/14/24 45 kg (99 lb 3.3 oz) 03/29/24 47.2 kg (104 lb 1.6 oz) 03/24/24 46.7 kg (103 lb) 03/24/24 46.7 kg (103 lb) 03/15/24 47 kg (103 lb 11.2 oz) 12/23/23 45.8 kg (101 lb) 03/13/22 47.6 kg (105 lb) Weight History: Pt appears relatively wt stable at 100-105# for the past year, consistent with reported UBW. Meds Reviewed: aspirin, lovenox, barclude, mag sulfate, mycophenolate, pantoprozole, tacrolimus, valganciclovir Labs Reviewed: 12/27: Na 136, K 4.3, BUN 23, Cr 1.04, eGFR 82, albumin 3.0, gluc 89, WBC 1.95, Hgb 9.4 Physical Exam: Enteral Access: None Last Bowel Movement: Net IO Since Admission: 98.08 mL [12/27/24 1019] O2 Device: room air Skin: Kirk Score: 22 Active Wounds: Wound Traumatic Abrasion 12/26/24 1842 Distal;Left;Lower;Posterior Arm (1) Edema: None documented NFPE: Nutrition Focused Physical Exam Completed?: completed Subcutaneous Fat Loss: Orbital Region (Orbital Fat Pads): moderate Cheek Region (Buccal Fat Pads): severe Upper Arm Region (Triceps): severe Thoracic and Lumbar Region (Ribs, Lower Back, Midaxillary Line): deferred Muscle Wasting: Yazdanism Region (Temporalis Muscle): severe Clavicle Bone Region (Pectoralis Major, Trapezius Muscles): severe Shoulder and Acromion Process Region (Deltoid Muscle): severe Dorsal Hand (Interosseous Muscle): moderate Scapular Bone Region (Trapezius, Supraspinatus, Infraspinatus Muscles): deferred Anterior Thigh and Patellar Region (Quadriceps Muscles): severe Posterior Calf Region (Gastrocnemius Muscle): severe Estimated Nutrition Needs: Weight Used: 45 kg- actual body weight Energy: 0503-6781 (30-35 kcal/kg) Protein: 54-67.5 (1.2-1.5 g/kg) Fluid: Per provider Malnutrition Statement: Malnutrition criteria met: Does the patient meet criteria for malnutrition: Yes Etiology of Malnutrition: Chronic Illness Malnutrition Severity: Severe Protein-Calorie Malnutrition (POA) as evidenced by clinical characteristics: Subcutaneous Fat Loss: Severe Muscle Mass Loss: Severe *Based on The Academy and ASPEN Indicators to Diagnose Malnutrition (AAIM) criteria (2012) Concepción Sampson Steam And Gas Turbine Assembler Contact: IHIS Message Cosigned by Torie Giles RD at 12/27/2024 12:49 PM EDT Associated attestation - Torie Giles RD - 12/27/2024 12:49 PM EDT Addendum: I have independently reviewed and edited this student's documentation. I agree with the assessment and plan. Torie Giles RD, LD Contact: Pager# [phone] or IHIS messages Summary: Pharmacy Med Rec Department of Pharmacy Admission Medication Reconciliation Note Patient: Jc Dunaway Room/Bed: 1010/A The patient's allergies have been reviewed with Patient. I have reviewed the patient's home medication list with the following sources Patient recall with prompting, Dispense Report, OARRs, and [facility]IS Review. I have also reviewed this list with the pharmacist. I am recommending the following changes to the home medication list. These recommendations are considered preliminary until attestation of this note by a pharmacist. Deleted from Home Medications: oxycodone 5 mg. polycarbophil 625 mg. Witch kentrell-glycerin pads. Edits to Home Medications: tamsulosin PO TO 0.4 mg daily in the evening. OARRs Report: Has been reviewed. Other Comments: Patient reported his Last Home Dose of entecavir was on 12/26/24. Patient reported his Last Home Dose of mycophenolate and tacrolimus was on 12/26/24 at 0800. Patient reported his Last Home Dose of Bactrim was on 12/26/24. Medications that need removed from Outside Medication Reconciliation list: Please remove all medications. Please feel free to contact me with any further questions. Name: Vicki Todd Phone #: [phone] Date/Time: 12/27/2024 9:21 AM Time Spent: 25 minutes Cosigned by Nazia Ng RP at 12/27/2024 2:59 PM EDT Associated attestation - Nazia Ng [facility] - 12/27/2024 2:59 PM EDT Department of Pharmacy Admission Medication Reconciliation Note Patient: Jc Dunaway Room/Bed: [facility]/A Updated SORT LINE WORKER Med List: Prior to Admission Medications Prescriptions Calcium Carbonate-Vitamin D (CALCIUM-CARB 600 + D PO) Sig: Take 1 tablet by mouth daily. Entecavir 0.5 MG tablet Sig: Take 1 tablet by mouth every 48 hours. Loperamide 2 MG capsule Sig: Take 1 capsule by mouth 4 times daily as needed for Diarrhea. Mycophenolate mofetil (CELLCEPT) 250 MG capsule Sig: Take 1 capsule by mouth every 12 hours. Sulfamethoxazole-trimethoprim 800-160 MG per tablet Sig: Take 1 tablet by mouth 3 times a week on Thursday, Thursday and Thursday Tacrolimus (PROGRAF) 1 MG capsule Sig: Take 4 capsules by mouth Every morning AND 3 capsules every evening. Tamsulosin HCl 0.4 MG capsule Sig: Take 1 capsule by mouth every evening at 6 PM. aspirin (Aspirin Low Dose) 81 MG Chew Tab chewable tablet Sig: Chew 1 tablet daily. lansoprazole [address] capsule Sig: TAKE 1 CAPSULE BY MOUTH EVERY DAY ursodiol 300 MG capsule Sig: Take 2 capsules by mouth every 12 hours. valGANciclovir 450 MG tablet Sig: Take 1 tablet by mouth daily. Facility-Administered Medications: None I have reviewed the home medication list with the Shipping And Receiving Weigher. The home medication list status is: complete and home med list marked as reviewed . All changes to the home medication list have been updated in IHIS. Please feel free to contact me with any further questions. Name: Nazia Ng RPH Phone #: [employer] Date/Time: 12/27/2024 2:58 PM Department of Pharmacy Transplant Note Patient: Jc Dunaway Room/Bed: 1010/A Transplant pharmacy is following Jc Dunaway during hospital admission and will perform the following activities related to transplant pharmacotherapy: 1. Ensure appropriate management and titration of immunosuppressive, prophylactic, and other supportive care medications; 2. Monitor for any adverse drug effects; 3. Review the patient's medication profile for any potential drug interaction. Name: Nazia Ng RPH Phone #: [employer] Date/Time: 12/27/2024 6:37 AM documented in this encounter [facility] 12-31-2024 Nurse Note IV access removed. Patient has received all discharge instructions and needed prescriptions. After-care information reviewed. Patient denies any questions at this time. BENJY and AVS faxed to [facility]. Unable to give report. Patient has been discharged with all of their belongings.' [facility] 12-31-2024 Miscellaneous Notes IV access removed. Patient has received all discharge instructions and needed prescriptions. After-care information reviewed. Patient denies any questions at this time. BENJY and AVS faxed to [facility]. Unable to give report. Patient has been discharged with all of their belongings.' Images from the original note were not included. 12/30/24 1434 Patient Choice for Post-Acute Providers Resumption of care? No Establishing care? Yes Level of care for choice Infusion Preferred geographic region Discussed and honored Source of list Post-Acute Referral System List was provided to Patient;Spouse Method of delivery In Person Is the provider part of a joint venture or have a financial relationship with discharging hospital? No [facility], an [employer] - IV Antibiotics [address], [address], [place] [address] Bonifacio BELL RN Clinical Hair Spinning Machine Operator Images from the original note were not included. 12/30/24 1427 Patient Choice for Post-Acute Providers Resumption of care? No Establishing care? Yes Level of care for choice Home Health Care Preferred geographic region Discussed and honored Source of list Post-Acute Referral System List was provided to Spouse;Patient Method of delivery In Person Is the provider part of a joint venture or have a financial relationship with discharging hospital? No [facility] senior living for home IV infusion [address] [place] [address] Bonifacio BELL RN Clinical Hair Spinning Machine Operator Interventional Radiology procedure completed with IR Attending Yue of right single lumen power line catheter placement. Power line aspirated blood and flushed with normal saline per protocol. Pt tolerated procedure with local numbing agent and IV sedation medications. Pt to travel to [facility] after phase I recovery. Post procedure orders in place including line clearance okay to use line. Interventional Radiology Pre Procedure Workup [facility] employee benefits coordinator [id number] - [facility] employee benefits coordinator [id number] - Vascular Access Nurse [id number] - Ana Vascular Access Nurse [id number] Procedure: Single lumen power line Laterality: N/A Approving MD: Yue Approved for date: 12/29 Routine or [facility]: Sedation: moderate Weight: 94# Pt able to lay flat: yes Consentable? yes PLEASE BE AWARE THAT TIME LISTED IN PT CALENDAR DOES NOT REFLECT ACTUAL TIME IR COAT OPERATOR WILL SEND FOR THE PATIENT EMERGENT CASES TAKE PRIORITY. Please contact us if patient's status changes or line is no longer needed. *please make your patient npo @ midnight prior to scheduled procedure, this includes tube feeding to be stopped and no pills crushed in food. Lab criteria for cvc placement: *plt 20,000 or greater *INR 3 or less *Hgb 7 or greater *If blood cultures are drawn, the culture must be resulted 2 days negative growth to date, from most recent blood draw. *If a previous central line has been removed and the tip cultured, with a positive result, a subsequent set of blood cx must be drawn and resulted atleast 2 days negative growth to date Your patient will need to be able to tolerate lying flat for approximately one hour. A working PIV is required to sedate your patient. Pre Procedure Chart Review Indication for line placement: intermediate project manager antibiotics Past Medical History[1] Allergies[2] IV Contrast Allergy? No Prep needed? No INR, MANUAL ENTER Date/Time Value Ref Range Status 04/28/2024 05:04 PM 1.6 Final INR Date/Time Value Ref Range Status 12/26/2024 08:03 PM 1.2 (H) 0.9 - 1.1 Final PLATELETS, MANUAL ENTER Date/Time Value Ref Range Status 12/14/2024 09:44 AM 444 Final Platelet Count Date/Time Value Ref Range Status 12/28/2024 05:54 AM 524 (H) 146 - 337 K/uL Final Hemoglobin (HGB), MANUAL ENTER Date/Time Value Ref Range Status 12/14/2024 09:44 AM 6.1 Final Hemoglobin Date/Time Value Ref Range Status 12/28/2024 05:54 AM 10.4 (L) 13.4 - 16.8 g/dL Final POTASSIUM (K+), MANUAL ENTER Date/Time Value Ref Range Status 12/14/2024 09:44 AM 4.4 Final Potassium Date/Time Value Ref Range Status 12/28/2024 05:54 AM 4.4 3.5 - 5.0 mmol/L Final CREATININE, SERUM, MANUAL ENTER Date/Time Value Ref Range Status 12/14/2024 09:44 AM 1.13 Final Creatinine Date/Time Value Ref Range Status 12/28/2024 05:54 AM 1.00 0.70 - 1.30 mg/dL Final Last Blood Cultures: None Vitals: 12/28/24 1139 BP: 121/64 Pulse: 70 Resp: 16 Temp: 97.9 F (36.6 C) SpO2: 100% O2: Room air Code Status: Full [1] Past Medical History: Diagnosis Date Cirrhosis of liver not due to alcohol 03/15/2024 Colon cancer 10/2020 Primary sclerosing cholangitis Ulcerative colitis diagnosed in the 80s- no surgery [2] No Known Allergies Colorectal SURGERY - PLAN OF CARE Jc Dunaway is a 59 yom with a PMH of colon cancer, 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 Now s/p pouchoscopy (12/28/24). The j-pouch appeared normal and healthy. Inflammation and ulcerations observed in rectum. Plan: - Recommend suppository steroids for rectal inflammation - Imodium for frequent bowel movements - EUA no longer indicated; case request canceled. - Okay for regular diet - Rest of care per primary team - CRS will continue to follow Plan was discussed with the attending operator receptionist, Dr. Joiner. Les Bosch MD General Surgery Problem: Adult Inpatient Plan of Care Goal: Plan of Care Review Outcome: Progressing Goal: Patient-Specific Goal (Individualized) Outcome: Progressing Goal: Absence of Hospital-Acquired Illness or Injury Outcome: Progressing Goal: Optimal Comfort and Wellbeing Outcome: Progressing Goal: Readiness for Transition of Care Outcome: Progressing Problem: Oral Intake Inadequate Goal: Improved Oral Intake Outcome: Progressing Problem: Oral Intake Inadequate Goal: Improved Oral Intake Outcome: Progressing Nutrition Recommendations and Plan of Care: 1. Resume Regular diet per care team. 2. Ensure Plus TID (350 kcal, 13 gm protein each) - Encourage soft, xmil-il-eyvoirgq food choices 3. RD to follow. Problem: Adult Inpatient Plan of Care Goal: Plan of Care Review Outcome: Progressing Goal: Patient-Specific Goal (Individualized) Outcome: Progressing Goal: Absence of Hospital-Acquired Illness or Injury Outcome: Progressing Goal: Optimal Comfort and Wellbeing Outcome: Progressing Goal: Readiness for Transition of Care Outcome: Progressing Ok to proceed with blood administration per Hum[facility] MILIAN. Blood Transfusion report sent to blood bank. Liss Wallis RN [facility] [place] MD: Jc Dunaway, 1010, KENNEDY. PT with fever of 100.4, just gave tylenol, are you okay with starting blood now, or do you want to wait a bit for a temp recheck? Blood isn't up here yet, but is ready. Thank you! [phone] Liss Wallis RN Problem: Adult Inpatient Plan of Care Goal: Plan of Care Review Outcome: Progressing Flowsheets (Taken 12/26/20242133) Progress: improving Plan of Care Reviewed With: patient Goal: Patient-Specific Goal (Individualized) Outcome: Progressing Goal: Absence of Hospital-Acquired Illness or Injury Outcome: Progressing Goal: Optimal Comfort and Wellbeing Outcome: Progressing Goal: Readiness for Transition of Care Outcome: Progressing Paged KENNEDY service, Humble MILIAN: Jc Duanway, 1010, TRO. PT with type and screen sent, notified 2U RBCs ready in blood bank, but PT has not yet been consented. Thank you. Liss RN [phone] Liss Wallis RN On admission to R1010, from Home, a dual RN initial assessment of skin condition was performed by Marcus Story RN and Bird South RN. Skin Assessment: Not WDL LDA Added: Yes Pictures Added: Yes Based on fall prevention risk stratification tool, patient is at Medium risk for fall. The following interventions were implemented: Low Risk 0-16 GREEN Call light plugged into bed Fall Color placed above door Gait belt at bedside Education on falls provided. Med. Risk 18-38 YELLOW Call light plugged into bed Fall Color placed above door Gait belt at bedside Education on falls provided Initiate Bed-Exit Alarm. High Risk 40-54 RED Call light plugged into bed Fall Color placed above door Gait belt at bedside Education on falls provided Initiate Bed-Exit Alarm Move patient to room closest to nurses station when available. documented in this encounter [facility] 12-30-2024 Nurse Note Images from the original note were not included. 12/30/24 1434 Patient Choice for Post-Acute Providers Resumption of care? No Establishing care? Yes Level of care for choice Infusion Preferred geographic region Discussed and honored Source of list Post-Acute Referral System List was provided to Patient;Spouse Method of delivery In Person Is the provider part of a joint venture or have a financial relationship with discharging hospital? No [facility], an [employer] - IV Antibiotics [address], [address], [place] [address] Bonifacio BELL RN Clinical Hair Spinning Machine Operator [facility] 12-30-2024 Nurse Note Images from the original note were not included. 12/30/24 1427 Patient Choice for Post-Acute Providers Resumption of care? No Establishing care? Yes Level of care for choice Home Health Care Preferred geographic region Discussed and honored Source of list Post-Acute Referral System List was provided to Spouse;Patient Method of delivery In Person Is the provider part of a joint venture or have a financial relationship with discharging hospital? No [facility] - senior living for home IV infusion [address] [place] [address] Bonifacio BELL RN Clinical Hair Spinning Machine Operator [facility] 12-29-2024 Nurse Note Interventional Radiology procedure completed with IR Attending Yue of right single lumen power line catheter placement. Power line aspirated blood and flushed with normal saline per protocol. Pt tolerated procedure with local numbing agent and IV sedation medications. Pt to travel to [facility] after phase I recovery. Post procedure orders in place including line clearance okay to use line. [facility] 12-28-2024 Hospital Discharge instructions Kta Gamino APRN-ROME - 12/28/2024 9:17 PM EDT CONTACTS POST TRANSPLANT OFFICE Local: [phone] Out of town: Post Transplant office hours are from 8:00AM - 4:00PM Thursday - Thursday. Service is also available for urgent calls after 4:00PM and on weekends. APPOINTMENTS Our Transplant clinic maintains a very full schedule and our provider schedules are often full. Please call us at [phone] if you anticipate being more than 15 minutes late to your appointment. If you are running late we may need to reschedule your appointment. IMMUNOSUPPRESSION DOSING The dose of your anti-rejection medication may change frequently. The instructions on your medication box/bottle may not be your correct dose. Always take the amount prescribed by your transplant provider REGARDING YOUR MEDICATIONS - We have changed your medicine during this admission. Please review this discharge medicine on sheet and take ONLY the medicines listed here. Do NOT take any additional medicines unless you first check with your doctor DIET REGULAR ACTIVITY Activity: As tolerated Do not drive while taking narcotic pain medications. MONITOR - Take your vital signs 3 times per day ( blood pressure, heart rate, and temperature) and write it down. - Report temperatures greater bal 100.5 - Report blood pressure greater than 150/90 or less than 90/50. - Weigh yourself daily and write it down. Weigh yourself every day at about the same time wearing similar clothes - Call your doctor if you gain more than 3-4 pounds in 48 hours or gain more than 5 pounds total in one week. LAB WORK Have your labs drawn according to your current lab schedule. NOTIFY YOUR PHYSICIAN IF YOU HAVE THE FOLLOWING SYMPTOMS: BLEEDING OR BRUISING - Increased bleeding from site. - Increased bruising or hematoma - If severe bleeding, apply pressure. CHEST PAIN OR SOB - Chest pain or shortness of breath CONSTIPATION - If you have not had a bowel movement 3 days after your discharge. FEVER/CHILLS/FLU - Temperature greater than 100.5 degrees F and/or chills - Signs of cold or flu. NAUSEA or VOMITING - Nausea and vomiting that continues for more than 24 hours. - Not able to keep medicine down. - Not able to keep fluids down. RESPIRATORY CHANGES - Shortness of breath that gets worse. - Cough that gets worse. - Coughing up blood. SYMPTOMS OF DVT (Deep Vein Thrombus, or Blood Clot) - Any Tender, Swollen, Or Reddened Areas From Your Groin To Your Heels -Numbness Or Tingling In Groin Or Calf. - The Skin On Your Leg Looks Pale Or Blue Or It Feels Cold To Touch. - Any Shortness Of Breath. - Chest Pain. - Fever Or Chills. SYMPTOMS OF GI BLEED SLOW BLOOD LOSS: - Black tarry stools. - Cold hands and feet. - Weakness. RAPID BLOOD LOSS: - Vomiting of blood. - Increase heart rate. - Fainting (blacking out). - Bright red blood from the rectum. documented in this encounter [facility] 12-28-2024 Plan of care note Interventional Radiology Pre Procedure Workup [facility] employee benefits coordinator [id number] - [facility] employee benefits coordinator [id number] - Vascular Access Nurse [id number] - Ana Vascular Access Nurse [id number] Procedure: Single lumen power line Laterality: N/A Approving MD: Yue Approved for date: 12/29 Routine or [facility] Sedation: moderate Weight: 94# Pt able to lay flat: yes Consentable? yes PLEASE BE AWARE THAT TIME LISTED IN PT CALENDAR DOES NOT REFLECT ACTUAL TIME IR COAT OPERATOR WILL SEND FOR THE PATIENT EMERGENT CASES TAKE PRIORITY. Please contact us if patient's status changes or line is no longer needed. *please make your patient npo @ midnight prior to scheduled procedure, this includes tube feeding to be stopped and no pills crushed in food. Lab criteria for cvc placement: *plt 20,000 or greater *INR 3 or less *Hgb 7 or greater *If blood cultures are drawn, the culture must be resulted 2 days negative growth to date, from most recent blood draw. *If a previous central line has been removed and the tip cultured, with a positive result, a subsequent set of blood cx must be drawn and resulted atleast 2 days negative growth to date Your patient will need to be able to tolerate lying flat for approximately one hour. A working PIV is required to sedate your patient. Pre Procedure Chart Review Indication for line placement: intermediate project manager antibiotics Past Medical History[1] Allergies[2] IV Contrast Allergy? No Prep needed? No INR, MANUAL ENTER Date/Time Value Ref Range Status 04/28/2024 05:04 PM 1.6 Final INR Date/Time Value Ref Range Status 12/26/2024 08:03 PM 1.2 (H) 0.9 - 1.1 Final PLATELETS, MANUAL ENTER Date/Time Value Ref Range Status 12/14/2024 09:44 AM 444 Final Platelet Count Date/Time Value Ref Range Status 12/28/2024 05:54 AM 524 (H) 146 - 337 K/uL Final Hemoglobin (HGB), MANUAL ENTER Date/Time Value Ref Range Status 12/14/2024 09:44 AM 6.1 Final Hemoglobin Date/Time Value Ref Range Status 12/28/2024 05:54 AM 10.4 (L) 13.4 - 16.8 g/dL Final POTASSIUM (K+), MANUAL ENTER Date/Time Value Ref Range Status 12/14/2024 09:44 AM 4.4 Final Potassium Date/Time Value Ref Range Status 12/28/2024 05:54 AM 4.4 3.5 - 5.0 mmol/L Final CREATININE, SERUM, MANUAL ENTER Date/Time Value Ref Range Status 12/14/2024 09:44 AM 1.13 Final Creatinine Date/Time Value Ref Range Status 12/28/2024 05:54 AM 1.00 0.70 - 1.30 mg/dL Final Last Blood Cultures: None Vitals: 12/28/24 1139 BP: 121/64 Pulse: 70 Resp: 16 Temp: 97.9 F (36.6 C) SpO2: 100% O2: Room air Code Status: Full [1] Past Medical History: Diagnosis Date Cirrhosis of liver not due to alcohol 03/15/2024 Colon cancer 10/2020 Primary sclerosing cholangitis Ulcerative colitis diagnosed in the 80s- no surgery [2] No Known Allergies [facility] 12-28-2024 Consult note Formatting of th is note might be different from the original. VASCULAR ACCESS NOTE: Thank you for your referral to the Vascular Access Team. Consulted for placement of: [] PIV [] Midline [x] PICC [] Arms assessed for device placement, viable vessels identified: No device placed due to: [] Awaiting OPAT/final recommendations from ID [] Awaiting approval from nephrology in the presence of CKD 3 or higher [] Awaiting patient to be 24 hours fever free and/or 48 hours of negative blood cultures [] Awaiting TPN approval [] Already has adequate access for therapies prescribed [] No viable veins (see description below) [] Patient refused [] Both arms found to have contraindications for line placement [] Continued malposition despite multiple attempts [] Accessed vein successfully, but PICC catheter would not advance [] Patient unable to give consent, no POA/unable to reach POA Additional note: Hx LUE cephalic/basilic thrombus from 06/24. RUE assessed - all veins too small for midline or PICC. Recommend tunneled line for intermediate project manager therapy. ROME and RN made aware. PICC pager [phone] PIV pager [phone] [facility] 12-28-2024 Consult note Formatting of th is note might be different from the original. VASCULAR ACCESS NOTE: Thank you for your referral to the Vascular Access Team. Consulted for placement of: [] PIV [] Midline [x] PICC [] Arms assessed for device placement, viable vessels identified: No device placed due to: [] Awaiting OPAT/final recommendations from ID [] Awaiting approval from nephrology in the presence of CKD 3 or higher [] Awaiting patient to be 24 hours fever free and/or 48 hours of negative blood cultures [] Awaiting TPN approval [] Already has adequate access for therapies prescribed [] No viable veins (see description below) [] Patient refused [] Both arms found to have contraindications for line placement [] Continued malposition despite multiple attempts [] Accessed vein successfully, but PICC catheter would not advance [] Patient unable to give consent, no POA/unable to reach POA Additional note: Hx LUE cephalic/basilic thrombus from 06/24. RUE assessed - all veins too small for midline or PICC. Recommend tunneled line for residential therapy. ROME and RN made aware. PICC pager [phone] PIV pager [phone] Associated Order(s): IP CONSULT TO INFECTIOUS DISEASE - TRANSPLANT INFECTIOUS DISEASE ID Team 3 (SOT) CONSULT NOTE Referring MD: Sonya Treviño MD, * Reason for Consult: h/o OLT with esophageal candidiasis on EGD. 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 Chief Complaint: elevated alk phos, ERCP anemia workup, rectal pain HPI: Hospital Summary: Jc Dunaway is a 59 y.o. 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 Transplant surgery was consulted upon presentation and patient underwent exam under anesthesia 12/28 with ulcerations observed in the rectum for which steroids were recommended. Hepatology is also consulted and patient underwent EGD 12/28 which demonstrated esophageal candidiasis. 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 Micafungin was started in light of current supratherapeutic Tacrolimus level with question on necessity for using Micafungin for duration of therapy. Evaluation at this time: On evaluation, he is currently without acute distress. He feels that he has had soreness to swallowing for the last week or so and having had one dose of Micafungin, feels immediately that it may be helping (still present). He denies fever, chills, abdominal pain, or other symptoms at this time. Antibiotics Received: Current antibiotics Micafungin Entecavir LDA PIV x 1 (12/26) Past Medical History, Past Surgical History, Past Social History, and Family Medical History Past Medical History[1] Past Surgical History[2] Family History Problem Relation Age of Onset Colorectal Cancer Neg Hx Social History[3] Review of Systems Review of Systems Constitutional: Negative for chills and fever. HENT: Positive for sore throat. Respiratory: Negative for shortness of breath. Cardiovascular: Negative for chest pain. Gastrointestinal: Negative for abdominal pain, constipation, diarrhea, nausea and vomiting. Prescriptions Prior to Admission[4] Inpatient Medications: [Held by provider] aspirin 81 mg Oral Daily [Held by provider] enoxaparin 30 mg Subcutaneous Q24H Entecavir 0.5 mg Oral Daily hydrocortisone 25 mg Rectal BID micafungin 100 mg Intravenous Q24H Mycophenolate mofetil 250 mg Oral Q12HNS Pantoprazole 40 mg Intravenous Daily Sulfamethoxazole-trimethoprim 1 tablet Oral 3x weekly (non-std) [Held by provider] Tacrolimus 4 mg Oral Daily And [Held by provider] Tacrolimus 3 mg Oral Nightly Tamsulosin HCl 0.4 mg Oral Daily ursodiol 600 mg Oral Q12H valGANciclovir 450 mg Oral Daily Allergies[5] OBJECTIVE FINDINGS: Vital Signs (24hrs): Temp: [97.3 F (36.3 C)-98.7 F (37.1 C)] 97.9 F (36.6 C) Pulse (Heart Rate): [62-84] 70 Resp Rate: [12-20] 16 BP: (92-124)/(51-73) 121/64 O2 Sat (%): [98 %-100 %] 100 % Weight: [43 kg (94 lb 12.8 oz)] 43 kg (94 lb 12.8 oz) Physical Exam: Vitals: 12/28/24 1139 BP: 121/64 Pulse: 70 Resp: 16 Temp: 97.9 F (36.6 C) SpO2: 100% Physical Exam Constitutional: General: He is not in acute distress. Appearance: He is not ill-appearing. Cardiovascular: Rate and Rhythm: Normal rate and regular rhythm. Pulses: Normal pulses. Heart sounds: Normal heart sounds. No murmur heard. Pulmonary: Effort: Pulmonary effort is normal. Breath sounds: Normal breath sounds. Abdominal: General: Abdomen is flat. Bowel sounds are normal. Palpations: Abdomen is soft. Neurological: Mental Status: He is alert. Lab Results Component Value Date WBC 2.11 (L) 12/28/2024 HGB 10.4 (L) 12/28/2024 HCT 32.2 (L) 12/28/2024 PLATELET 524 (H) 12/28/2024 MCV 86.1 12/28/2024 Lab Results Component Value Date RBCDISTRIBU 17.6 (H) 12/28/2024 GRNLOCYT 66.7 10/10/2024 LYMPHOCYT 19 12/14/2024 MONOCYTELEC 7.8 10/10/2024 EOSINOPHILS 0.8 12/28/2024 BASOPHILS 0.0 12/28/2024 LYMPHOCYTABS 0.43 (L) 12/28/2024 EOSINOPHLABS 0.02 12/28/2024 PLATELET 524 (H) 12/28/2024 MPV 9.5 12/28/2024 Bun/Creat/Cl/CO2/Glucose: 28/1.00/101/24/100 (12/28 553) Na/K+/Phos/Mg/Ca: 133/4.4/--/--/-- (12/28 553) Lab Results Component Value Date ALT 5 (L) 12/28/2024 AST 12 12/28/2024 GGT 30 12/14/2024 ALKPHOS 683 (H) 12/28/2024 BILITOTAL 0.4 12/28/2024 BILIDIRECT 0.1 12/28/2024 Urinalysis Lab Results Component Value Date SPGRVTYUR 1.020 12/26/2024 GLUCOSEURINE Negative 12/26/2024 KETONESURINE Negative 12/26/2024 BLOODURINE Negative 12/26/2024 NITRITESURIN Negative 12/26/2024 LEUKOCESTUR Negative 12/26/2024 WBCURINE 0 - 5 12/26/2024 RBCURINE 0-2 12/26/2024 BACTERIAURIN ABSENT 12/26/2024 Microbiology and Other Significant ID Labs: (personally reviewed) Other swabs/PCR VRE screen 12/26: In process Imaging: (personally reviewed) US Abdomen liver transplant doppler 12/27 IMPRESSION: 1. Marked scattered pneumobilia. Correlation with dedicated CT of the abdomen and pelvis is recommended. 2. Patent transplant vasculature. ASSESSMENT: Esophageal candidiasis PSC/EtOH-cirrhosis s/p OLT 05/25/24 with intra-abdominal fluid growth of Naeem auris s/p Micafungin Prior positive Q fever antibody with cow exposure in need of repeat antibody testing following Doxycycline administration Estimated Creatinine Clearance: 48 mL/min (by C-G formula based on SCr of 1 mg/dL). RECOMMENDATIONS: Diagnostics Ordered repeat Q fever antibodies to ensure lack of positivity/decrease in levels following prior treatment in July Patient previously completed OPAT with Micafungin and Ertapenem and is amenable to repeating this Will place OPAT - recommend Micafungin 150 mg every 24 hours for esophageal candidiasis x 21 days Isolation Contact Patient was staffed with Dr. Hosea Odell ID Team 3 (SOT) Will sign off at this time. If you have any questions, please reach out to the ID Team 3 (SOT) pager found in [employer] below. The ID Team pagers are available - Thursday through Thursday from 7:00 am to 06:00 pm. For emergent or after hour issues, please call the on-call ID Fellow pager. [facility] - [facility] Infectious Disease - [1] Past Medical History: Diagnosis Date Cirrhosis of liver not due to alcohol 03/15/2024 Colon cancer 10/2020 Primary sclerosing cholangitis Ulcerative colitis diagnosed in the 80s- no surgery [2] Past Surgical History: Procedure Laterality Date LAPAROTOMY EXPLORATORY N/A 06/03/2024 Laterality: N/A; Surgeon: Dalia Thomas MD; Location: [facility] MAIN OR LIVER TRANSPLANT, ORTHOTOPIC N/A 05/25/2024 Laterality: N/A; Surgeon: Dalia Thomas MD; Location: [facility] MAIN OR EXAM UNDER ANESTHESIA ANORECTAL N/A 02/28/2022 Laterality: N/A; Surgeon: Miroslava Joiner MD; Location: [facility] PERIOP ENDOSCOPY SMALL INTESTINE POUCH DIAGNOSTIC N/A 02/28/2022 Laterality: N/A; Surgeon: Miroslava Joiner MD; Location: [facility] PERIOP LOOP ILEOSTOMY CLOSURE N/A 06/04/2021 Laterality: N/A; Surgeon: Miroslava Joiner MD; Location: [facility] MAIN OR ENDOSCOPY SMALL INTESTINE POUCH DIAGNOSTIC N/A 04/22/2021 Laterality: N/A; Surgeon: Miroslava Joiner MD; Location: [facility] ENDOSCOPY COLOPROCTECTOMY TOTAL W/ LOOP ILEOSTOMY OR CREATION ILEAL RESERVOIR LAPAROSCOPIC N/A 02/12/2021 Laterality: N/A; Surgeon: Miroslava Joiner MD; Location: [facility] MAIN OR SIGMOIDOSCOPY DIAGNOSTIC N/A 02/04/2021 Laterality: N/A; Surgeon: Miroslava Joiner MD; Location: [facility] ENDOSCOPY HIP REPLACEMENT Left 2005 COLONOSCOPY DIAGNOSTIC Nov 20202001 [3] Social History Tobacco Use Smoking status: Never Smokeless tobacco: Never Vaping Use Vaping status: Never Used Substance Use Topics Alcohol use: Not Currently Drug use: Not Currently [4] Medications Prior to Admission Medication Sig Dispense Refill Last Dose/Taking aspirin (Aspirin Low Dose) 81 MG Chew Tab chewable tablet Chew 1 tablet daily. 12/26/2024 Morning Calcium Carbonate-Vitamin D (CALCIUM-CARB 600 + D PO) Take 1 tablet by mouth daily. Past Month Entecavir 0.5 MG tablet Take 1 tablet by mouth every 48 hours. 15 tablet 11 12/26/2024 Morning lansoprazole [address] capsule TAKE 1 CAPSULE BY MOUTH EVERY DAY 90 capsule 1 Past Month Loperamide 2 MG capsule Take 1 capsule by mouth 4 times daily as needed for Diarrhea. 120 capsule 3 12/26/2024 Evening Mycophenolate mofetil (CELLCEPT) 250 MG capsule Take 1 capsule by mouth every 12 hours. 60 capsule 5 12/26/2024 at 8:00 AM Sulfamethoxazole-trimethoprim 800-160 MG per tablet Take 1 tablet by mouth 3 times a week on Thursday, Thursday and Thursday 12 tablet 8 12/26/2024 Morning Tacrolimus (PROGRAF) 1 MG capsule Take 4 capsules by mouth Every morning AND 3 capsules every evening. 210 capsule 5 12/26/2024 Morning Tamsulosin HCl 0.4 MG capsule Take 1 capsule by mouth every evening at 6 PM. 12/25/2024 Evening ursodiol 300 MG capsule Take 2 capsules by mouth every 12 hours. 120 capsule 5 12/26/2024 Evening valGANciclovir 450 MG tablet Take 1 tablet by mouth daily. 30 tablet 2 12/26/2024 Morning [5] No Known Allergies Cosigned by Hosea Odell DO at 12/28/2024 7:55 PM EDT Associated attestation - Hosea Odell DO - 12/28/2024 7:55 PM EDT I saw and independently examined the patient on 12/28/2024. I agree with the history, examination, and medical decision making as noted by Dr. Arciniega. 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 FOund to have Naeem esophagitis. Biopsy done but no cultures. 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 He reports clinical improvement . Reasonably possible his esophageal candidasis is C auris - would treat with a course of micafungin. He has done home IV antibiotics before and is comfortable. Would also repeat Q fever antibodies again - just to trend. Does not seem likely he has active Q fever. Please message via [employer] secure chat or page with any questions or concerns. Hosea Odell DO International Trade Teacher Division of Infectious Disease Associated Order(s): IP CONSULT TO HEPATOBILIARY Hepatobiliary Initial Consult Note IDENTIFYING DATA/REASON FOR CONSULTATION PATIENT: Jc Dunaway ADMIT DATE: 12/26/2024 TIME OF EVALUATION: 12/27/2024 11:28 AM HOSPITAL STAY: LOS: 1 day REFERRING PHYSICIAN: Sonya Treviño MD, * REASON FOR CONSULTATION: s/p OLT SUBJECTIVE/INTERVAL HISTORY: N/A HISTORY OF PRESENT ILLNESS: Jc Dunaway is a 59 y.o. 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 We have been consulted regarding s/p OLT. Fall Risk: Assessed for patient fall risk and discussed safety measures during rounding. Patient has a past medical history of colon cancer, UC s/p TPC/IPAA with pouch, and PSCC cirrhosis s/p DCD OLT 05/25/24 (D+/R-) with RNY choledochojejunostomy. Donor HBcAb positive. Post-op course c/b bile leak with re-do choledochojejunostomy and bowel obstruction at site of previous j-pouch; also with admission 07/2024 for new diarrhea with hematochezia and fevers; concern for Q fever for which patient was treated with doxycycline for 4 weeks. Patient presents with elevated LFTs and ongoing anemia. Also describes difficulty swallowing with epigastric pain and ongoing anorectal pain for which he saw Dr. Joiner in colorectal surgery. PAST MEDICAL, SURGICAL, FAMILY & SOCIAL HISTORY: Past Medical History[1] Past Surgical History[2] Family History Problem Relation Age of Onset Colorectal Cancer Neg Hx Social History[3] MEDICATIONS: SCHEDULED: [Held by provider] aspirin chewable tablet 81 mg, 81 mg, Daily [Held by provider] Enoxaparin Sodium (LOVENOX) injection 30 mg, 30 mg, Q24H [START ON 12/28/2024] Entecavir (BARACLUDE) tablet 0.5 mg, 0.5 mg, Q48H Magnesium sulfate 4 g in sterile water 50 ml premix IVPB, 4 g, Once Mycophenolate mofetil (CELLCEPT) capsule 250 mg, 250 mg, Q12HNS Pantoprazole (PROTONIX) injection 40 mg, 40 mg, Daily Tacrolimus (PROGRAF) capsule 4 mg, 4 mg, Daily And Tacrolimus (PROGRAF) capsule 3 mg, 3 mg, Nightly Tamsulosin HCl (FLOMAX) capsule 0.4 mg, 0.4 mg, Daily ursodiol (ACTIGALL) capsule 600 mg, 600 mg, Q12H valGANciclovir (valCYTE) tablet 450 mg, 450 mg, Daily FLUIDS/DRIPS: PRNs: Acetaminophen, 650 mg, Q6H PRN Ondansetron 4mg/2ml, 4 mg, Q6H PRN Or Ondansetron, 4 mg, Q6H PRN Sodium chloride 0.9%, 250 mL, PRN ALLERGIES: He has no known allergies. REVIEW OF SYSTEMS; otherwise full ROS was reviewed and was otherwise negative Review of Systems Constitutional: Negative. HENT: Negative. Cardiovascular: Negative. Musculoskeletal: Negative. Psychiatric: Negative. Lymph/Heme: Negative. PHYSICAL EXAM: Temp: [98.1 F (36.7 C)-100.4 F (38 C)] 99.1 F (37.3 C) Pulse (Heart Rate): [68-91] 77 Resp Rate: [12-16] 12 BP: (94-125)/(50-66) 124/65 O2 Sat (%): [97 %-100 %] 97 % Weight: [45.3 kg (99 lb 14.4 oz)] 45.3 kg (99 lb 14.4 oz) I/O last 3 completed shifts: In: 453.1 [Blood:453.1] Out: 355 [Urine:355] Oxygen Therapy: Oxygen Therapy O2 Sat (%): 97 % O2 Device: room air Oxygen Delivery/Consumption Hemodynamics BSA (Calculated - sq m): 1.49 m2 Constitutional: Breathing easily, in no acute distress. Does not appear cachectic. HEENT: PER, neg scleral icterus, normal appearing oropharynx, no appreciable cervical LAD Cardiovascular: Normal rate and regular rhythm. Pulmonary/Chest: Breath sounds normal. Abdominal: Soft. NT/ND. No appreciable HS. Extrem: No appreciable edema. No gross focal motor deficits in distal extrem. Neurological: AOx3. Skin: Does not appear jaundiced. LABS AND IMAGING: Recent Results (from the past 24 hours) AMYLASE Collection Time: 12/26/24 6:00 PM Result Value Ref Range Amylase 45 20 - 103 U/L CHEM 7 (LYTES,BUN,CREA,GLUC) Collection Time: 12/26/24 6:00 PM Result Value Ref Range Sodium 133 (L) 135 - 145 mmol/L Potassium 4.1 3.5 - 5.0 mmol/L Chloride 101 98 - 108 mmol/L CO2 23 21 - 31 mmol/L Glucose 117 Nonfastin-179 mg/dL; Fastin-99 mg/dL BUN 23 7 - 25 mg/dL Creatinine 0.98 0.70 - 1.30 mg/dL Bun/Crea Ratio 23 Osmolality (Calculated) 285 278 - 305 mOsm/kg Anion Gap 13 7 - 17 mmol/L eGFR, CKD-EPI, Male 88 >=60 mL/min/1.73m2 PHOSPHATE, INORGANIC Collection Time: 12/26/24 6:00 PM Result Value Ref Range Phosphorous 3.4 2.2 - 4.6 mg/dL MAGNESIUM Collection Time: 12/26/24 6:00 PM Result Value Ref Range Magnesium 1.3 (L) 1.6 - 2.6 mg/dL CALCIUM Collection Time: 12/26/24 6:00 PM Result Value Ref Range Calcium 9.1 8.6 - 10.5 mg/dL HEPATIC FUNCTION PANEL Collection Time: 12/26/24 6:00 PM Result Value Ref Range Albumin 3.2 (L) 3.5 - 5.0 g/dL Bilirubin Direct <0.1 <0.3 mg/dL Bilirubin Total 0.3 <1.5 mg/dL ALP 685 (H) 32 - 126 U/L ALT 7 (L) 10 - 52 U/L AST 12 10 - 39 U/L Total Protein 5.9 (L) 6.4 - 8.3 g/dL CBC AND ELECTRONIC DIFF Collection Time: 12/26/24 6:00 PM Result Value Ref Range WBC Count 1.79 (L) 3.73 - 10.10 K/uL RBC Count 2.47 (L) 4.38 - 5.83 M/uL Hemoglobin 6.7 (LL) 13.4 - 16.8 g/dL Hematocrit 22.1 (L) 39.6 - 48.8 % Mean Cell Volume 89.5 79.0 - 94.5 fL Mean Cell Hgb 27.1 26.1 - 33.3 pg Mean Cell Hgb Conc 30.3 (L) 31.9 - 36.5 g/dL RBC Distribution 16.9 (H) 10.9 - 14.3 % Platelet Count 525 (H) 146 - 337 K/uL Mean Platelet Volume 9.7 8.7 - 12.3 fL MANUAL DIFF Collection Time: 12/26/24 6:00 PM Result Value Ref Range DIFF STATUS Manual Differential Bands Relative 0.0 % Segs Relative 28.7 % Lymph Relative 36.9 % Tama Relative 33.6 % Eos Relative 0.8 % Baso Relative 0.0 % Segs & Bands, Absolute 0.51 (L) 1.57 - 6.19 K/uL Abs Lymph Manual 0.66 (L) 0.83 - 3.57 K/uL Abs Tama Manual 0.60 0.24 - 0.93 K/uL Abs Eos Manual 0.01 0.00 - 0.48 K\uL Abs Baso Manual 0.00 0.00 - 0.09 K/uL RBC Morphology RBC INDICES CONFIRMED WITH MANUAL SLIDE REVIEW Platelet Estimate Automated platelet count confirmed by manual slide review Ovalocytes Present (A) (none) Target Cells Present (A) (none) Platelet Clumping Present (A) (none) TYPE AND SCREEN Collection Time: 12/26/24 6:47 PM Result Value Ref Range ABO/RH(D) TYPE O POS Specimen Expiration 12/29/2024 23:59 ANTIBODY SCREEN NEG PREPARE TO TRANSFUSE RED BLOOD CELLS Collection Time: 12/26/24 6:47 PM Result Value Ref Range BLOOD COMPONENT TYPE Red Cells, Leukoreduced UNIT NUMBER [id number] UNIT STATUS transfused PRODUCT CODE [id number] Product ABO/RH(D) NUMBER 9499 EXPIRATION DATE [id number] ABO/RH(D) TYPE OPOS Product ABO/RH(D) ONEG Unit Compatibility Compatibile BLOOD COMPONENT TYPE Red Cells, Leukoreduced UNIT NUMBER [id number] UNIT STATUS transfused PRODUCT CODE [id number] Product ABO/RH(D) NUMBER 9499 EXPIRATION DATE [id number] ABO/RH(D) TYPE OPOS Product ABO/RH(D) ONEG Unit Compatibility Compatibile PT,INR,PTT Collection Time: 12/26/24 8:03 PM Result Value Ref Range PT 15.5 (H) 11.9 - 14.2 sec INR 1.2 (H) 0.9 - 1.1 PTT 34.1 24.0 - 34.3 sec URINALYSIS REFLEX TO CULTURE PERFORMABLE Collection Time: 12/26/24 8:03 PM Result Value Ref Range Color Yellow Yellow Appearance Urine Clear Clear Glucose Urine Negative Negative Ketones Urine Negative Negative Specific Hudson Urine 1.020 1.001 - 1.035 Blood Urine Negative Negative pH Urine 5.5 5.0 - 7.0 Protein Urine Negative Negative Urobilinogen Urine 0.2 E.U./dL 0.2 E.U/dL, 1.0 E.U/dL Nitrites Urine Negative Negative Leukocyte Esterase Negative Negative RBC Urine 0-2 0 - 2 /HPF WBC Urine 0 - 5 0 - 5 /HPF Squamous/Epithelial Cells, Urine 0-2/hpf 0-2/hpf, 3-5/hpf = 1+ Bacteria ABSENT ABSENT CBC,PLATELETS Collection Time: 12/27/24 8:37 AM Result Value Ref Range WBC Count 1.95 (L) 3.73 - 10.10 K/uL RBC Count 3.42 (L) 4.38 - 5.83 M/uL Hemoglobin 9.4 (L) 13.4 - 16.8 g/dL Hematocrit 29.1 (L) 39.6 - 48.8 % Mean Cell Volume 85.1 79.0 - 94.5 fL Mean Cell Hgb 27.5 26.1 - 33.3 pg Mean Cell Hgb Conc 32.3 31.9 - 36.5 g/dL RBC Distribution 17.2 (H) 10.9 - 14.3 % Platelet Count 484 (H) 146 - 337 K/uL Mean Platelet Volume 9.7 8.7 - 12.3 fL CHEM 7 (LYTES,BUN,CREA,GLUC) Collection Time: 12/27/24 8:37 AM Result Value Ref Range Sodium 136 135 - 145 mmol/L Potassium 4.3 3.5 - 5.0 mmol/L Chloride 103 98 - 108 mmol/L CO2 25 21 - 31 mmol/L Glucose 89 Nonfastin-179 mg/dL; Fastin-99 mg/dL BUN 23 7 - 25 mg/dL Creatinine 1.04 0.70 - 1.30 mg/dL Bun/Crea Ratio 22 Osmolality (Calculated) 289 278 - 305 mOsm/kg Anion Gap 12 7 - 17 mmol/L eGFR, CKD-EPI, Male 82 >=60 mL/min/1.73m2 HEPATIC FUNCTION PANEL Collection Time: 12/27/24 8:37 AM Result Value Ref Range Albumin 3.0 (L) 3.5 - 5.0 g/dL Bilirubin Direct 0.3 (H) <0.3 mg/dL Bilirubin Total 1.0 <1.5 mg/dL ALP 667 (H) 32 - 126 U/L ALT 8 (L) 10 - 52 U/L AST 11 10 - 39 U/L Total Protein 5.8 (L) 6.4 - 8.3 g/dL Other Labs Reviewed. Imaging 10/23/24 - MRI Pelvis with/without contrast 1. Questionable intersphincteric sinus tract involving the lower anal canal without apparent cutaneous opening. No perianal abscesses or active inflammatory bowel disease. 2. Left presacral collection is stable in size and is consistent with a hematoma. ASSESSMENT & RECOMMENDATIONS: Jc Dunaway is a 59 y.o. 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 We have been consulted regarding s/p OLT. IMPRESSION: PSC cirrhosis s/p DCD OLT 05/25/24 (D+/R-) with RNY choledochojejunostomy Donor HBcAb positive Hx colon cancer Hx UC s/p TPC/IPAA with pouch Anemia Elevated LFTs Anorectal pain IS: -MMF 250 mg BID -Tacrolimus 4 mg QAM / 3 mg QPM (trough 5.5, 12/14) RECOMMENDATIONS: -Neutropenia, would obtain daily diffs. ANC 510 yesterday - would given Neupogen, obtain EBV/CMV PCRs. Did previously have CMV viremia for which he was treated, on valcyte ppx. Would consider holding valcyte (can consider letermovir) -Would consider switching MMF to prednisone 5 mg daily as well. -Alk phos significantly elevated. Given patient has RNY choledochojejunostomy, would obtain MRI/MRCP for further evaluation. Would also obtain liver doppler. -Patient c/o epigastric pain with difficulty swallowing. Will plan for EGD tomorrow, 12/28. Please keep NPO at midnight. Transfuse goal hgb > 7. -Patient has ongoing anorectal pain; prior h/o colon cancer and UC for which he underwent TPC/IPAA with pouch - follows with colorectal surgery and recently saw Dr. Joiner. Current plan for anorectal exam under anesthesia in January - would consult colorectal surgery for further management/evaluation (noted MRI pelvis in September with concern for ?fistula). -Would ensure entecavir ppx is appropriately dosed given normal renal fx -IS otherwise as above; antiviral/antibacterial ppx per protocol -Plan of care discussed with transplant surgery -Will continue to follow. Perlita Armijo APRN-[facility] Transplant Hepatology Nurse Practitioner For contact information (pager), please go to [facility] > Internal Medicine > Gastroenterology, Hepatology, & Nutrition If you have any questions or need any further information, please feel free to contact our consult team. Thank you for allowing us to participate in the care of Jc Dunaway. [1] Past Medical History: Diagnosis Date Cirrhosis of liver not due to alcohol 03/15/2024 Colon cancer 10/2020 Primary sclerosing cholangitis Ulcerative colitis diagnosed in the 80s- no surgery [2] Past Surgical History: Procedure Laterality Date LAPAROTOMY EXPLORATORY N/A 06/03/2024 Laterality: N/A; Surgeon: Dalia Thomas MD; Location: [facility] MA[facility] OR LIVER TRANSPLANT, ORTHOTOPIC N/A 05/25/2024 Laterality: N/A; Surgeon: Dalia Thomas MD; Location: [facility] MA[facility] OR EXAM UNDER ANESTHESIA ANORECTAL N/A 02/28/2022 Laterality: N/A; Surgeon: Miroslava Joiner MD; Location: [facility] PERIOP ENDOSCOPY SMALL INTESTINE POUCH DIAGNOSTIC N/A 02/28/2022 Laterality: N/A; Surgeon: Miroslava Joiner MD; Location: [facility] PERIOP LOOP ILEOSTOMY CLOSURE N/A 06/04/2021 Laterality: N/A; Surgeon: Miroslava Joiner MD; Location: [facility] OR ENDOSCOPY SMALL INTESTINE POUCH DIAGNOSTIC N/A 04/22/2021 Laterality: N/A; Surgeon: Miroslava Joiner MD; Location: [facility]OS[facility] COLOPROCTECTOMY TOTAL W/ LOOP ILEOSTOMY OR CREATION ILEAL RESERVOIR LAPAROSCOPIC N/A 02/12/2021 Laterality: N/A; Surgeon: Miroslava Joiner MD; Location: [facility] MAIN OR SIGMOIDOSCOPY DIAGNOSTIC N/A 02/04/2021 Laterality: N/A; Surgeon: Miroslava Joiner MD; Location: [facility] ENDOS[facility] HIP REPLACEMENT Left 2005 COLONOSCOPY DIAGNOSTIC Nov 20202001 [3] Social History Socioeconomic History Marital status: Tobacco Use Smoking status: Never Smokeless tobacco: Never Vaping Use Vaping status: Never Used Substance and Sexual Activity Alcohol use: Not Currently Drug use: Not Currently Social Drivers of Health Financial Resource Strain: Low Risk (05/26/2024) Overall Financial Resource Strain (CARDIA) Difficulty of Paying Living Expenses: Not hard at all Food Insecurity: No Food Insecurity (12/27/2024) NCSS - Food Insecurity Worried About Running Out of Food in the Last Year: No Ran Out of Food in the Last Year: No Transportation Needs: No Transportation Needs (12/27/2024) NCSS - Transportation Lack of Transportation: No Personal Safety: Not At Risk (12/27/2024) NCSS - Interpersonal Safety Feels Physically and Emotionally Safe: Yes Physically Hurt by Someone: No Humiliated or Emotionally Abused by Someone: No Housing Stability: Not At Risk (12/27/2024) NCSS - Housing/Utilities Has Housing: Yes Worried About Losing Housing: No Unable to Get Utilities: No Cosigned by CHAN Pina at 12/27/2024 4:50 PM EDT Associated attestation - Francia Ware MBBS - 12/27/2024 4:50 PM EDT ATTENDING STATEMENT: I have personally seen and examined this patient independently. All pertinent data has been reviewed. I agree with the resident/fellow dictated impression and plan. Jc Dunaway is a 59 y.o. male with PSC cirrhosis s/p DCD OLT 05/25/24 (D+/R-) with RNY choledochojejunostomy. He also has Ulcerative colitis. We have been consulted regarding s/p OLT. Admitted with low HB, raised ALP and anorectal pain Labs showed low WBC count. IS: -MMF 250 mg BID -Tacrolimus 4 mg QAM / 3 mg QPM (trough 5.5, 12/14) - Check for CMV/EBV viremia and consider holding valcyte (can consider letermovir) - Would consider switching MMF to prednisone 5 mg daily as well. - Alk phos significantly elevated. Given patient has RNY choledochojejunostomy, would obtain MRI/MRCP for further evaluation. Would also obtain liver doppler. - Patient c/o epigastric pain with difficulty swallowing. Will plan for EGD tomorrow, 12/28. -Patient has ongoing anorectal pain; prior h/o colon cancer and UC for which he underwent TPC/IPAA with pouch - follows with colorectal surgery and recently saw Dr. Joiner. - Would ensure entecavir ppx is appropriately dosed given normal renal fx - IS otherwise as above; antiviral/antibacterial ppx per protocol - Plan of care discussed with transplant surgery - Will continue to follow. Francia GILES, MSc Professor-Clinical Medicine Department of Medicine [facility], [place], [place] documented in this encounter [facility] 12-28-2024 Consult note Associated Order (s): IP CONSULT TO INFECTIOUS DISEASE - TRANSPLANT INFECTIOUS DISEASE ID Team 3 (SOT) CONSULT NOTE Referring MD: Sonya Treviño MD, * Reason for Consult: h/o OLT with esophageal candidiasis on EGD. 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 Chief Complaint: elevated alk phos, ERCP anemia workup, rectal pain HPI: Hospital Summary: Jc Dunaway is a 59 y.o. 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 Transplant surgery was consulted upon presentation and patient underwent exam under anesthesia 12/28 with ulcerations observed in the rectum for which steroids were recommended. Hepatology is also consulted and patient underwent EGD 12/28 which demonstrated esophageal candidiasis. 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 Micafungin was started in light of current supratherapeutic Tacrolimus level with question on necessity for using Micafungin for duration of therapy. Evaluation at this time: On evaluation, he is currently without acute distress. He feels that he has had soreness to swallowing for the last week or so and having had one dose of Micafungin, feels immediately that it may be helping (still present). He denies fever, chills, abdominal pain, or other symptoms at this time. Antibiotics Received: Current antibiotics Micafungin Entecavir LDA PIV x 1 (12/26) Past Medical History, Past Surgical History, Past Social History, and Family Medical History Past Medical History[1] Past Surgical History[2] Family History Problem Relation Age of Onset Colorectal Cancer Neg Hx Social History[3] Review of Systems Review of Systems Constitutional: Negative for chills and fever. HENT: Positive for sore throat. Respiratory: Negative for shortness of breath. Cardiovascular: Negative for chest pain. Gastrointestinal: Negative for abdominal pain, constipation, diarrhea, nausea and vomiting. Prescriptions Prior to Admission[4] Inpatient Medications: [Held by provider] aspirin 81 mg Oral Daily [Held by provider] enoxaparin 30 mg Subcutaneous Q24H Entecavir 0.5 mg Oral Daily hydrocortisone 25 mg Rectal BID micafungin 100 mg Intravenous Q24H Mycophenolate mofetil 250 mg Oral Q12HNS Pantoprazole 40 mg Intravenous Daily Sulfamethoxazole-trimethoprim 1 tablet Oral 3x weekly (non-std) [Held by provider] Tacrolimus 4 mg Oral Daily And [Held by provider] Tacrolimus 3 mg Oral Nightly Tamsulosin HCl 0.4 mg Oral Daily ursodiol 600 mg Oral Q12H valGANciclovir 450 mg Oral Daily Allergies[5] OBJECTIVE FINDINGS: Vital Signs (24hrs): Temp: [97.3 F (36.3 C)-98.7 F (37.1 C)] 97.9 F (36.6 C) Pulse (Heart Rate): [62-84] 70 Resp Rate: [12-20] 16 BP: (92-124)/(51-73) 121/64 O2 Sat (%): [98 %-100 %] 100 % Weight: [43 kg (94 lb 12.8 oz)] 43 kg (94 lb 12.8 oz) Physical Exam: Vitals: 12/28/24 1139 BP: 121/64 Pulse: 70 Resp: 16 Temp: 97.9 F (36.6 C) SpO2: 100% Physical Exam Constitutional: General: He is not in acute distress. Appearance: He is not ill-appearing. Cardiovascular: Rate and Rhythm: Normal rate and regular rhythm. Pulses: Normal pulses. Heart sounds: Normal heart sounds. No murmur heard. Pulmonary: Effort: Pulmonary effort is normal. Breath sounds: Normal breath sounds. Abdominal: General: Abdomen is flat. Bowel sounds are normal. Palpations: Abdomen is soft. Neurological: Mental Status: He is alert. Lab Results Component Value Date WBC 2.11 (L) 12/28/2024 HGB 10.4 (L) 12/28/2024 HCT 32.2 (L) 12/28/2024 PLATELET 524 (H) 12/28/2024 MCV 86.1 12/28/2024 Lab Results Component Value Date RBCDISTRIBU 17.6 (H) 12/28/2024 GRNLOCYT 66.7 10/10/2024 LYMPHOCYT 19 12/14/2024 MONOCYTELEC 7.8 10/10/2024 EOSINOPHILS 0.8 12/28/2024 BASOPHILS 0.0 12/28/2024 LYMPHOCYTABS 0.43 (L) 12/28/2024 EOSINOPHLABS 0.02 12/28/2024 PLATELET 524 (H) 12/28/2024 MPV 9.5 12/28/2024 Bun/Creat/Cl/CO2/Glucose: 28/1.00/101/24/100 (12/28 553) Na/K+/Phos/Mg/Ca: 133/4.4/--/--/-- (12/28 553) Lab Results Component Value Date ALT 5 (L) 12/28/2024 AST 12 12/28/2024 GGT 30 12/14/2024 ALKPHOS 683 (H) 12/28/2024 BILITOTAL 0.4 12/28/2024 BILIDIRECT 0.1 12/28/2024 Urinalysis Lab Results Component Value Date SPGRVTYUR 1.020 12/26/2024 GLUCOSEURINE Negative 12/26/2024 KETONESURINE Negative 12/26/2024 BLOODURINE Negative 12/26/2024 NITRITESURIN Negative 12/26/2024 LEUKOCESTUR Negative 12/26/2024 WBCURINE 0 - 5 12/26/2024 RBCURINE 0-2 12/26/2024 BACTERIAURIN ABSENT 12/26/2024 Microbiology and Other Significant ID Labs: (personally reviewed) Other swabs/PCR VRE screen 12/26: In process Imaging: (personally reviewed) US Abdomen liver transplant doppler 12/27 IMPRESSION: 1. Marked scattered pneumobilia. Correlation with dedicated CT of the abdomen and pelvis is recommended. 2. Patent transplant vasculature. ASSESSMENT: Esophageal candidiasis PSC/EtOH-cirrhosis s/p OLT 05/25/24 with intra-abdominal fluid growth of Naeem auris s/p Micafungin Prior positive Q fever antibody with cow exposure in need of repeat antibody testing following Doxycycline administration Estimated Creatinine Clearance: 48 mL/min (by C-G formula based on SCr of 1 mg/dL). RECOMMENDATIONS: Diagnostics Ordered repeat Q fever antibodies to ensure lack of positivity/decrease in levels following prior treatment in July Patient previously completed OPAT with Micafungin and Ertapenem and is amenable to repeating this Will place OPAT - recommend Micafungin 150 mg every 24 hours for esophageal candidiasis x 21 days Isolation Contact Patient was staffed with Dr. Hosea Odell ID Team 3 (SOT) Will sign off at this time. If you have any questions, please reach out to the ID Team 3 (SOT) pager found in [facility] below. The ID Team pagers are available - Thursday through Thursday from 7:00 am to 06:00 pm. For emergent or after hour issues, please call the on-call ID Fellow pager. [facility] - [facility] Infectious Disease - [1] Past Medical History: Diagnosis Date Cirrhosis of liver not due to alcohol 03/15/2024 Colon cancer 10/2020 Primary sclerosing cholangitis Ulcerative colitis diagnosed in the 80s- no surgery [2] Past Surgical History: Procedure Laterality Date LAPAROTOMY EXPLORATORY N/A 06/03/2024 Laterality: N/A; Surgeon: Dalia Thomas MD; Location: [facility] MA[facility] OR LIVER TRANSPLANT, ORTHOTOPIC N/A 05/25/2024 Laterality: N/A; Surgeon: Dalia Thomas MD; Location: [facility] MA[facility] OR EXAM UNDER ANESTHESIA ANORECTAL N/A 02/28/2022 Laterality: N/A; Surgeon: Miroslava Joiner MD; Location: [facility] PERIOP ENDOSCOPY SMALL INTESTINE POUCH DIAGNOSTIC N/A 02/28/2022 Laterality: N/A; Surgeon: Miroslava Joiner MD; Location: [facility] PERIOP LOOP ILEOSTOMY CLOSURE N/A 06/04/2021 Laterality: N/A; Surgeon: Miroslava Joiner MD; Location: [facility] MA[facility] OR ENDOSCOPY SMALL INTESTINE POUCH DIAGNOSTIC N/A 04/22/2021 Laterality: N/A; Surgeon: Miroslava Joiner MD; Location: [facility] ENDOS[facility] COLOPROCTECTOMY TOTAL W/ LOOP ILEOSTOMY OR CREATION ILEAL RESERVOIR LAPAROSCOPIC N/A 02/12/2021 Laterality: N/A; Surgeon: Miroslava Joiner MD; Location: [facility] MAIN OR SIGMOIDOSCOPY DIAGNOSTIC N/A 02/04/2021 Laterality: N/A; Surgeon: Miroslava Joiner MD; Location: [facility]OS[facility] HIP REPLACEMENT Left 2005 COLONOSCOPY DIAGNOSTIC Nov 20202001 [3] Social History Tobacco Use Smoking status: Never Smokeless tobacco: Never Vaping Use Vaping status: Never Used Substance Use Topics Alcohol use: Not Currently Drug use: Not Currently [4] Medications Prior to Admission Medication Sig Dispense Refill Last Dose/Taking aspirin (Aspirin Low Dose) 81 MG Chew Tab chewable tablet Chew 1 tablet daily. 12/26/2024 Morning Calcium Carbonate-Vitamin D (CALCIUM-CARB 600 + D PO) Take 1 tablet by mouth daily. Past Month Entecavir 0.5 MG tablet Take 1 tablet by mouth every 48 hours. 15 tablet 11 12/26/2024 Morning lansoprazole [address] capsule TAKE 1 CAPSULE BY MOUTH EVERY DAY 90 capsule 1 Past Month Loperamide 2 MG capsule Take 1 capsule by mouth 4 times daily as needed for Diarrhea. 120 capsule 3 12/26/2024 Evening Mycophenolate mofetil (CELLCEPT) 250 MG capsule Take 1 capsule by mouth every 12 hours. 60 capsule 5 12/26/2024 at 8:00 AM Sulfamethoxazole-trimethoprim 800-160 MG per tablet Take 1 tablet by mouth 3 times a week on Thursday, Thursday and Thursday 12 tablet 8 12/26/2024 Morning Tacrolimus (PROGRAF) 1 MG capsule Take 4 capsules by mouth Every morning AND 3 capsules every evening. 210 capsule 5 12/26/2024 Morning Tamsulosin HCl 0.4 MG capsule Take 1 capsule by mouth every evening at 6 PM. 12/25/2024 Evening ursodiol 300 MG capsule Take 2 capsules by mouth every 12 hours. 120 capsule 5 12/26/2024 Evening valGANciclovir 450 MG tablet Take 1 tablet by mouth daily. 30 tablet 2 12/26/2024 Morning [5] No Known Allergies Cosigned by Hosea Odell DO at 12/28/2024 7:55 PM EDT Associated attestation - Hosea Odell DO - 12/28/2024 7:55 PM EDT I saw and independently examined the patient on 12/28/2024. I agree with the history, examination, and medical decision making as noted by Dr. Arciniega. 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 FOund to have Naeem esophagitis. Biopsy done but no cultures. 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 He reports clinical improvement . Reasonably possible his esophageal candidasis is C auris - would treat with a course of micafungin. He has done home IV antibiotics before and is comfortable. Would also repeat Q fever antibodies again - just to trend. Does not seem likely he has active Q fever. Please message via [employer] secure chat or page with any questions or concerns. Hosea Odell DO [employer] Teacher Division of Infectious Disease [facility] 12-28-2024 Plan of care note Colorectal SURGERY - PLAN OF CARE Jc Dunaway is a 59 yom with a PMH of colon cancer, 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 Now s/p pouchoscopy (12/28/24). The j-pouch appeared normal and healthy. Inflammation and ulcerations observed in rectum. Plan: - Recommend suppository steroids for rectal inflammation - Imodium for frequent bowel movements - EUA no longer indicated; case request canceled. - Okay for regular diet - Rest of care per primary team - CRS will continue to follow Plan was discussed with the attending operator receptionist, Dr. Joiner. Les Bosch MD General Surgery [facility] 12-28-2024 Plan of care note Problem: Adult Inpatient Plan of Care Goal: Plan of Care Review Outcome: Progressing Goal: Patient-Specific Goal (Individualized) Outcome: Progressing Goal: Absence of Hospital-Acquired Illness or Injury Outcome: Progressing Goal: Optimal Comfort and Wellbeing Outcome: Progressing Goal: Readiness for Transition of Care Outcome: Progressing Problem: Oral Intake Inadequate Goal: Improved Oral Intake Outcome: Progressing [facility] 12-27-2024 Plan of care note Problem: Oral Intake Inadequate Goal: Improved Oral Intake Outcome: Progressing Nutrition Recommendations and Plan of Care: 1. Resume Regular diet per care team. 2. Ensure Plus TID (350 kcal, 13 gm protein each) - Encourage soft, [id number] food choices 3. RD to follow. [facility] 12-27-2024 Consult note Associated Order (s): IP CONSULT TO HEPATOBILIARY Hepatobiliary Initial Consult Note IDENTIFYING DATA/REASON FOR CONSULTATION PATIENT: Jc Dunaway ADMIT DATE: 12/26/2024 TIME OF EVALUATION: 12/27/2024 11:28 AM HOSPITAL STAY: LOS: 1 day REFERRING PHYSICIAN: Sonya Treviño MD, * REASON FOR CONSULTATION: s/p OLT SUBJECTIVE/INTERVAL HISTORY: N/A HISTORY OF PRESENT ILLNESS: Jc Dunaway is a 59 y.o. 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 We have been consulted regarding s/p OLT. Fall Risk: Assessed for patient fall risk and discussed safety measures during rounding. Patient has a past medical history of colon cancer, UC s/p TPC/IPAA with pouch, and PSCC cirrhosis s/p DCD OLT 05/25/24 (D+/R-) with RNY choledochojejunostomy. Donor HBcAb positive. Post-op course c/b bile leak with re-do choledochojejunostomy and bowel obstruction at site of previous j-pouch; also with admission 07/2024 for new diarrhea with hematochezia and fevers; concern for Q fever for which patient was treated with doxycycline for 4 weeks. Patient presents with elevated LFTs and ongoing anemia. Also describes difficulty swallowing with epigastric pain and ongoing anorectal pain for which he saw Dr. Joiner in colorectal surgery. PAST MEDICAL, SURGICAL, FAMILY & SOCIAL HISTORY: Past Medical History[1] Past Surgical History[2] Family History Problem Relation Age of Onset Colorectal Cancer Neg Hx Social History[3] MEDICATIONS: SCHEDULED: [Held by provider] aspirin chewable tablet 81 mg, 81 mg, Daily [Held by provider] Enoxaparin Sodium (LOVENOX) injection 30 mg, 30 mg, Q24H [START ON 12/28/2024] Entecavir (BARACLUDE) tablet 0.5 mg, 0.5 mg, Q48H Magnesium sulfate 4 g in sterile water 50 ml premix IVPB, 4 g, Once Mycophenolate mofetil (CELLCEPT) capsule 250 mg, 250 mg, Q12HNS Pantoprazole (PROTONIX) injection 40 mg, 40 mg, Daily Tacrolimus (PROGRAF) capsule 4 mg, 4 mg, Daily And Tacrolimus (PROGRAF) capsule 3 mg, 3 mg, Nightly Tamsulosin HCl (FLOMAX) capsule 0.4 mg, 0.4 mg, Daily ursodiol (ACTIGALL) capsule 600 mg, 600 mg, Q12H valGANciclovir (valCYTE) tablet 450 mg, 450 mg, Daily FLUIDS/DRIPS: PRNs: Acetaminophen, 650 mg, Q6H PRN Ondansetron 4mg/2ml, 4 mg, Q6H PRN Or Ondansetron, 4 mg, Q6H PRN Sodium chloride 0.9%, 250 mL, PRN ALLERGIES: He has no known allergies. REVIEW OF SYSTEMS; otherwise full ROS was reviewed and was otherwise negative Review of Systems Constitutional: Negative. HENT: Negative. Cardiovascular: Negative. Musculoskeletal: Negative. Psychiatric: Negative. Lymph/Heme: Negative. PHYSICAL EXAM: Temp: [98.1 F (36.7 C)-100.4 F (38 C)] 99.1 F (37.3 C) Pulse (Heart Rate): [68-91] 77 Resp Rate: [12-16] 12 BP: (94-125)/(50-66) 124/65 O2 Sat (%): [97 %-100 %] 97 % Weight: [45.3 kg (99 lb 14.4 oz)] 45.3 kg (99 lb 14.4 oz) I/O last 3 completed shifts: In: 453.1 [Blood:453.1] Out: 355 [Urine:355] Oxygen Therapy: Oxygen Therapy O2 Sat (%): 97 % O2 Device: room air Oxygen Delivery/Consumption Hemodynamics BSA (Calculated - sq m): 1.49 m2 Constitutional: Breathing easily, in no acute distress. Does not appear cachectic. HEENT: PER, neg scleral icterus, normal appearing oropharynx, no appreciable cervical LAD Cardiovascular: Normal rate and regular rhythm. Pulmonary/Chest: Breath sounds normal. Abdominal: Soft. NT/ND. No appreciable HS. Extrem: No appreciable edema. No gross focal motor deficits in distal extrem. Neurological: AOx3. Skin: Does not appear jaundiced. LABS AND IMAGING: Recent Results (from the past 24 hours) AMYLASE Collection Time: 12/26/24 6:00 PM Result Value Ref Range Amylase 45 20 - 103 U/L CHEM 7 (LYTES,BUN,CREA,GLUC) Collection Time: 12/26/24 6:00 PM Result Value Ref Range Sodium 133 (L) 135 - 145 mmol/L Potassium 4.1 3.5 - 5.0 mmol/L Chloride 101 98 - 108 mmol/L CO2 23 21 - 31 mmol/L Glucose 117 Nonfastin-179 mg/dL; Fastin-99 mg/dL BUN 23 7 - 25 mg/dL Creatinine 0.98 0.70 - 1.30 mg/dL Bun/Crea Ratio 23 Osmolality (Calculated) 285 278 - 305 mOsm/kg Anion Gap 13 7 - 17 mmol/L eGFR, CKD-EPI, Male 88 >=60 mL/min/1.73m2 PHOSPHATE, INORGANIC Collection Time: 12/26/24 6:00 PM Result Value Ref Range Phosphorous 3.4 2.2 - 4.6 mg/dL MAGNESIUM Collection Time: 12/26/24 6:00 PM Result Value Ref Range Magnesium 1.3 (L) 1.6 - 2.6 mg/dL CALCIUM Collection Time: 12/26/24 6:00 PM Result Value Ref Range Calcium 9.1 8.6 - 10.5 mg/dL HEPATIC FUNCTION PANEL Collection Time: 12/26/24 6:00 PM Result Value Ref Range Albumin 3.2 (L) 3.5 - 5.0 g/dL Bilirubin Direct <0.1 <0.3 mg/dL Bilirubin Total 0.3 <1.5 mg/dL ALP 685 (H) 32 - 126 U/L ALT 7 (L) 10 - 52 U/L AST 12 10 - 39 U/L Total Protein 5.9 (L) 6.4 - 8.3 g/dL CBC AND ELECTRONIC DIFF Collection Time: 12/26/24 6:00 PM Result Value Ref Range WBC Count 1.79 (L) 3.73 - 10.10 K/uL RBC Count 2.47 (L) 4.38 - 5.83 M/uL Hemoglobin 6.7 (LL) 13.4 - 16.8 g/dL Hematocrit 22.1 (L) 39.6 - 48.8 % Mean Cell Volume 89.5 79.0 - 94.5 fL Mean Cell Hgb 27.1 26.1 - 33.3 pg Mean Cell Hgb Conc 30.3 (L) 31.9 - 36.5 g/dL RBC Distribution 16.9 (H) 10.9 - 14.3 % Platelet Count 525 (H) 146 - 337 K/uL Mean Platelet Volume 9.7 8.7 - 12.3 fL MANUAL DIFF Collection Time: 12/26/24 6:00 PM Result Value Ref Range DIFF STATUS Manual Differential Bands Relative 0.0 % Segs Relative 28.7 % Lymph Relative 36.9 % Tama Relative 33.6 % Eos Relative 0.8 % Baso Relative 0.0 % Segs & Bands, Absolute 0.51 (L) 1.57 - 6.19 K/uL Abs Lymph Manual 0.66 (L) 0.83 - 3.57 K/uL Abs Tama Manual 0.60 0.24 - 0.93 K/uL Abs Eos Manual 0.01 0.00 - 0.48 K\uL Abs Baso Manual 0.00 0.00 - 0.09 K/uL RBC Morphology RBC INDICES CONFIRMED WITH MANUAL SLIDE REVIEW Platelet Estimate Automated platelet count confirmed by manual slide review Ovalocytes Present (A) (none) Target Cells Present (A) (none) Platelet Clumping Present (A) (none) TYPE AND SCREEN Collection Time: 12/26/24 6:47 PM Result Value Ref Range ABO/RH(D) TYPE O POS Specimen Expiration 12/29/2024 23:59 ANTIBODY SCREEN NEG PREPARE TO TRANSFUSE RED BLOOD CELLS Collection Time: 12/26/24 6:47 PM Result Value Ref Range BLOOD COMPONENT TYPE Red Cells, Leukoreduced UNIT NUMBER [id number] UNIT STATUS transfused PRODUCT CODE B1133Y64 Product ABO/RH(D) NUMBER 9500 EXPIRATION DATE [id number] ABO/RH(D) TYPE OPOS Product ABO/RH(D) ONEG Unit Compatibility Compatibile BLOOD COMPONENT TYPE Red Cells, Leukoreduced UNIT NUMBER [id number] UNIT STATUS transfused PRODUCT CODE [id number] Product ABO/RH(D) NUMBER 9500 EXPIRATION DATE [id number] ABO/RH(D) TYPE OPOS Product ABO/RH(D) ONEG Unit Compatibility Compatibile PT,INR,PTT Collection Time: 12/26/24 8:03 PM Result Value Ref Range PT 15.5 (H) 11.9 - 14.2 sec INR 1.2 (H) 0.9 - 1.1 PTT 34.1 24.0 - 34.3 sec URINALYSIS REFLEX TO CULTURE PERFORMABLE Collection Time: 12/26/24 8:03 PM Result Value Ref Range Color Yellow Yellow Appearance Urine Clear Clear Glucose Urine Negative Negative Ketones Urine Negative Negative Specific Hudson Urine 1.020 1.001 - 1.035 Blood Urine Negative Negative pH Urine 5.5 5.0 - 7.0 Protein Urine Negative Negative Urobilinogen Urine 0.2 E.U./dL 0.2 E.U/dL, 1.0 E.U/dL Nitrites Urine Negative Negative Leukocyte Esterase Negative Negative RBC Urine 0-2 0 - 2 /HPF WBC Urine 0 - 5 0 - 5 /HPF Squamous/Epithelial Cells, Urine 0-2/hpf 0-2/hpf, 3-5/hpf = 1+ Bacteria ABSENT ABSENT CBC,PLATELETS Collection Time: 12/27/24 8:37 AM Result Value Ref Range WBC Count 1.95 (L) 3.73 - 10.10 K/uL RBC Count 3.42 (L) 4.38 - 5.83 M/uL Hemoglobin 9.4 (L) 13.4 - 16.8 g/dL Hematocrit 29.1 (L) 39.6 - 48.8 % Mean Cell Volume 85.1 79.0 - 94.5 fL Mean Cell Hgb 27.5 26.1 - 33.3 pg Mean Cell Hgb Conc 32.3 31.9 - 36.5 g/dL RBC Distribution 17.2 (H) 10.9 - 14.3 % Platelet Count 484 (H) 146 - 337 K/uL Mean Platelet Volume 9.7 8.7 - 12.3 fL CHEM 7 (LYTES,BUN,CREA,GLUC) Collection Time: 12/27/24 8:37 AM Result Value Ref Range Sodium 136 135 - 145 mmol/L Potassium 4.3 3.5 - 5.0 mmol/L Chloride 103 98 - 108 mmol/L CO2 25 21 - 31 mmol/L Glucose 89 Nonfastin-179 mg/dL; Fastin-99 mg/dL BUN 23 7 - 25 mg/dL Creatinine 1.04 0.70 - 1.30 mg/dL Bun/Crea Ratio 22 Osmolality (Calculated) 289 278 - 305 mOsm/kg Anion Gap 12 7 - 17 mmol/L eGFR, CKD-EPI, Male 82 >=60 mL/min/1.73m2 HEPATIC FUNCTION PANEL Collection Time: 12/27/24 8:37 AM Result Value Ref Range Albumin 3.0 (L) 3.5 - 5.0 g/dL Bilirubin Direct 0.3 (H) <0.3 mg/dL Bilirubin Total 1.0 <1.5 mg/dL ALP 667 (H) 32 - 126 U/L ALT 8 (L) 10 - 52 U/L AST 11 10 - 39 U/L Total Protein 5.8 (L) 6.4 - 8.3 g/dL Other Labs Reviewed. Imaging 10/23/24 - MRI Pelvis with/without contrast 1. Questionable intersphincteric sinus tract involving the lower anal canal without apparent cutaneous opening. No perianal abscesses or active inflammatory bowel disease. 2. Left presacral collection is stable in size and is consistent with a hematoma. ASSESSMENT & RECOMMENDATIONS: Jc Dunaway is a 59 y.o. 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 We have been consulted regarding s/p OLT. IMPRESSION: PSC cirrhosis s/p DCD OLT 05/25/24 (D+/R-) with RNY choledochojejunostomy Donor HBcAb positive Hx colon cancer Hx UC s/p TPC/IPAA with pouch Anemia Elevated LFTs Anorectal pain IS: -MMF 250 mg BID -Tacrolimus 4 mg QAM / 3 mg QPM (trough 5.5, 12/14) RECOMMENDATIONS: -Neutropenia, would obtain daily diffs. ANC 510 yesterday - would given Neupogen, obtain EBV/CMV PCRs. Did previously have CMV viremia for which he was treated, on valcyte ppx. Would consider holding valcyte (can consider letermovir) -Would consider switching MMF to prednisone 5 mg daily as well. -Alk phos significantly elevated. Given patient has RNY choledochojejunostomy, would obtain MRI/MRCP for further evaluation. Would also obtain liver doppler. -Patient c/o epigastric pain with difficulty swallowing. Will plan for EGD tomorrow, 12/28. Please keep NPO at midnight. Transfuse goal hgb > 7. -Patient has ongoing anorectal pain; prior h/o colon cancer and UC for which he underwent TPC/IPAA with pouch - follows with colorectal surgery and recently saw Dr. Joiner. Current plan for anorectal exam under anesthesia in January - would consult colorectal surgery for further management/evaluation (noted MRI pelvis in September with concern for ?fistula). -Would ensure entecavir ppx is appropriately dosed given normal renal fx -IS otherwise as above; antiviral/antibacterial ppx per protocol -Plan of care discussed with transplant surgery -Will continue to follow. Perlita Armijo APRN-[facility] Transplant Hepatology Nurse Practitioner For contact information (pager), please go to [facility] > Internal Medicine > Gastroenterology, Hepatology, & Nutrition If you have any questions or need any further information, please feel free to contact our consult team. Thank you for allowing us to participate in the care of Jc Dunaway. [1] Past Medical History: Diagnosis Date Cirrhosis of liver not due to alcohol 03/15/2024 Colon cancer 10/2020 Primary sclerosing cholangitis Ulcerative colitis diagnosed in the 80s- no surgery [2] Past Surgical History: Procedure Laterality Date LAPAROTOMY EXPLORATORY N/A 06/03/2024 Laterality: N/A; Surgeon: Dalia Thomas MD; Location: [facility] MAIN OR LIVER TRANSPLANT, ORTHOTOPIC N/A 05/25/2024 Laterality: N/A; Surgeon: Dalia Thomas MD; [facility] UND[facility] ANESTHESIA ANORECTAL N/A 02/28/2022 Laterality: N/A; Surgeon: Miroslava Joiner MD; Location: [facility] PERIOP ENDOSCOPY SMALL INTESTINE POUCH DIAGNOSTIC N/A 02/28/2022 Laterality: N/A; Surgeon: Miroslava Joiner MD; Location: [facility] PERIOP LOOP ILEOSTOMY CLOSURE N/A 06/04/2021 Laterality: N/A; Surgeon: Miroslava Joiner MD; Location: [facility] MAIN OR ENDOSCOPY SMALL INTESTINE POUCH DIAGNOSTIC N/A 04/22/2021 Laterality: N/A; Surgeon: Miroslava Joiner MD; Location: [facility] ENDOSCOPY COLOPROCTECTOMY TOTAL W/ LOOP ILEOSTOMY OR CREATION ILEAL RESERVOIR LAPAROSCOPIC N/A 02/12/2021 Laterality: N/A; Surgeon: Miroslava Joiner MD; Location: [facility] MAIN OR SIGMOIDOSCOPY DIAGNOSTIC N/A 02/04/2021 Laterality: N/A; Surgeon: Miroslava Joiner MD; Location: [facility] ENDOSCOPY HIP REPLACEMENT Left 2005 COLONOSCOPY DIAGNOSTIC Nov 20202001 [3] Social History Socioeconomic History Marital status: Tobacco Use Smoking status: Never Smokeless tobacco: Never Vaping Use Vaping status: Never Used Substance and Sexual Activity Alcohol use: Not Currently Drug use: Not Currently Social Drivers of Health Financial Resource Strain: Low Risk (05/26/2024) Overall Financial Resource Strain (CARDIA) Difficulty of Paying Living Expenses: Not hard at all Food Insecurity: No Food Insecurity (12/27/2024) NCSS - Food Insecurity Worried About Running Out of Food in the Last Year: No Ran Out of Food in the Last Year: No Transportation Needs: No Transportation Needs (12/27/2024) NCSS - Transportation Lack of Transportation: No Personal Safety: Not At Risk (12/27/2024) NCSS - Interpersonal Safety Feels Physically and Emotionally Safe: Yes Physically Hurt by Someone: No Humiliated or Emotionally Abused by Someone: No Housing Stability: Not At Risk (12/27/2024) NCSS - Housing/Utilities Has Housing: Yes Worried About Losing Housing: No Unable to Get Utilities: No Cosigned by CHAN Pina at 12/27/2024 4:50 PM EDT Associated attestation - Francia Ware MBBS - 12/27/2024 4:50 PM EDT ATTENDING STATEMENT: I have personally seen and examined this patient independently. All pertinent data has been reviewed. I agree with the resident/fellow dictated impression and plan. Jc Dunaway is a 59 y.o. male with PSC cirrhosis s/p DCD OLT 05/25/24 (D+/R-) with RNY choledochojejunostomy. He also has Ulcerative colitis. We have been consulted regarding s/p OLT. Admitted with low HB, raised ALP and anorectal pain Labs showed low WBC count. IS: -MMF 250 mg BID -Tacrolimus 4 mg QAM / 3 mg QPM (trough 5.5, 12/14) - Check for CMV/EBV viremia and consider holding valcyte (can consider letermovir) - Would consider switching MMF to prednisone 5 mg daily as well. - Alk phos significantly elevated. Given patient has RNY choledochojejunostomy, would obtain MRI/MRCP for further evaluation. Would also obtain liver doppler. - Patient c/o epigastric pain with difficulty swallowing. Will plan for EGD tomorrow, 12/28. -Patient has ongoing anorectal pain; prior h/o colon cancer and UC for which he underwent TPC/IPAA with pouch - follows with colorectal surgery and recently saw Dr. Joiner. - Would ensure entecavir ppx is appropriately dosed given normal renal fx - IS otherwise as above; antiviral/antibacterial ppx per protocol - Plan of care discussed with transplant surgery - Will continue to follow. Francia GILES, MSc Professor-Clinical Medicine Department of Medicine [facility], [facility] 12-27-2024 Plan of care note Problem: Adult Inpatient Plan of Care Goal: Plan of Care Review Outcome: Progressing Goal: Patient-Specific Goal (Individualized) Outcome: Progressing Goal: Absence of Hospital-Acquired Illness or Injury Outcome: Progressing Goal: Optimal Comfort and Wellbeing Outcome: Progressing Goal: Readiness for Transition of Care Outcome: Progressing [facility] 12-26-2024 Nurse Note Ok to proceed with blood administration per Humble MILIAN. Blood Transfusion report sent to blood bank. Liss Wallis RN [facility] 12-26-2024 Nurse Note Humble Ohara MD: Lisa Kidd, KENNEDY. PT with fever of 100.4, just gave tylenol, are you okay with starting blood now, or do you want to wait a bit for a temp recheck? Blood isn't up here yet, but is ready. Thank you! [phone] Liss Wallis RN [facility] 12-26-2024 Plan of care note Problem: Adult Inpatient Plan of Care Goal: Plan of Care Review Outcome: Progressing Flowsheets (Taken 12/26/20242133) Progress: improving Plan of Care Reviewed With: patient Goal: Patient-Specific Goal (Individualized) Outcome: Progressing Goal: Absence of Hospital-Acquired Illness or Injury Outcome: Progressing Goal: Optimal Comfort and Wellbeing Outcome: Progressing Goal: Readiness for Transition of Care Outcome: Progressing [facility] 12-26-2024 Nurse Note Paged Humble Mac MD: Lisa Kidd, KENNEDY. PT with type and screen sent, notified 2U RBCs ready in blood bank, but PT has not yet been consented. Thank you. Liss GLORIA [phone] Liss Wallis RN [facility] 12-26-2024 History and physical note Chief Complaint: Elevated Alkaline Phosphatase, ERCP and anemia workup HPI: Jc Dunaway, 59 yr M w/ PMHx of colon cancer, UC, PSC cirrhosis s/p OLT 05/25/24 ([place]) w/ Janay-en-Y choledochojejunostomy, complicated post LT course who was admitted to [facility] 12/26/24 due to elevated alk phos, ERCP and anemia workup. Patient states last Thursday was getting workup with hepatology, was found to have elevated Alk phos and low hgb level. Was starting iron treatment for anemia with PCP. Patient's partner in room, states been dealing with GI bleed/anemia for some time, PCP haven't addressed issue. Per chart review, hepatology 12/15/24 recommended that patient needed MRCP to due to unusual elevated Alk phos level without elevated LFTs. Question if patient has HAT or bilary ischemic cholangiopathy. Patient has had anemia, last low 6.1 on 12/07/24. In room, patient in no acute distress, vitals stable. Patient denies fever, chills, shortness of breath, chest pain, vomiting, or abd pain. Patient also denies any sick contacts or recent URI. Patient endorses having decrease appetite, nausea diarrhea with some blood in stool. Physical exam benign. Labs notable for Alk sal 685, hgb 6.7, WBC 1.79. LFT WNL Past Medical History[1] Past Surgical History[2] Social History Social History Socioeconomic History Marital status: Spouse name: Not on file Number of children: Not on file Years of education: Not on file Highest education level: Not on file Occupational History Not on file Tobacco Use Smoking status: Never Smokeless tobacco: Never Vaping Use Vaping status: Never Used Substance and Sexual Activity Alcohol use: Not Currently Drug use: Not Currently Sexual activity: Not on file Other Topics Concern Not on file Social History Narrative Not on file Social Drivers of Health Financial Resource Strain: Low Risk (05/26/2024) Overall Financial Resource Strain (CARDIA) Difficulty of Paying Living Expenses: Not hard at all Food Insecurity: No Food Insecurity (08/01/2024) NCSS - Food Insecurity Worried About Running Out of Food in the Last Year: No Ran Out of Food in the Last Year: No Transportation Needs: No Transportation Needs (08/01/2024) NCSS - Transportation Lack of Transportation: No Physical Activity: Not on file Stress: Not on file Social Connections: Not on file Personal Safety: Not At Risk (08/01/2024) NCSS - Interpersonal Safety Feels Physically and Emotionally Safe: Yes Physically Hurt by Someone: No Humiliated or Emotionally Abused by Someone: No Housing Stability: Not At Risk (08/01/2024) NCSS - Housing/Utilities Has Housing: Yes Worried About Losing Housing: No Unable to Get Utilities: No Family History Problem Relation Age of Onset Colorectal Cancer Neg Hx Medications: Current Medications[3] Allergies: Patient has no known allergies. Review of Systems: Const: negative for fever and hot flashes, malaise HEENT: negative for headaches or visual changes CV: negative for chest pain, dyspnea on exertion, edema, irregular heartbeat and shortness of breath Lungs: negative for cough, shortness of breath and sputum changes GI: negative for abdominal pain, blood in stools, change in bowel habits, change in stools, hematemesis and melena, appetite loss and nausea/vomiting : negative for dysuria and hematuria MSK: negative for joint pain or joint deformity Neuro: negative for confusion, Psych: negative for depression, alert, oriented Derm: negative for rash or pruritus The remainder of the twelve system review is negative. Physical Exam Vital Signs: BP 107/59 (BP Location: Right arm, BP Position: Lying) Pulse 91 Temp 98.8 F (37.1 C) (Oral) Resp 16 Ht 1.676 m (5' 6) Wt 45.3 kg (99 lb 14.4 oz) SpO2 99% BMI 16.12 kg/m Smoking Status Never General: Well-developed, well-nourished. Alert and oriented to person, place and time. No acute distress HEENT: Atraumatic, normocephalic, extra ocular muscles intact. No scleral icterus. Neck: supple Heart: regular rate and rhythm no murmurs Lungs: Clear to ascultation. No wheezes Abdomen: Soft, non-tender, non-distended, positive bowel sounds. No rebound, guarding, or peritoneal signs. Extremities: Non-tender, no edema, (MUST CHECK LOWER EXTREMITY PULSES) Genitalia: appropriate Skin: no lesions Laboratory Data: Lab Results Component Value Date WBC 2.9 12/14/2024 HGB 6.1 12/14/2024 HCT 20.0 12/14/2024 PLATELET 444 12/14/2024 MCV 96.4 (H) 10/10/2024 Lab Results Component Value Date SODIUM 140 12/14/2024 POTASSIUM 4.4 12/14/2024 CHLORIDE 107 12/14/2024 CO2 24 12/14/2024 BUN 27 12/14/2024 CREATSERUM 1.13 12/14/2024 GLUCOSE 109 12/14/2024 Lab Results Component Value Date ALT 12 12/14/2024 AST 22 12/14/2024 GGT 30 12/14/2024 ALKPHOS 741 12/14/2024 BILITOTAL <0.15 12/14/2024 BILIDIRECT 0.11 12/14/2024 @LABLAST(cyclosporin2:3,tacrolimus: 3,siroliumus:3])@ Diagnostic Imaging: Impression/Plan: Jc Dunaway, 59 yr M w/ PMHx of colon cancer, UC, PSC, ETOH cirrhosis s/p OLT 05/25/24 ([place]) who was admitted to [facility] 12/26/24 due to elevated alk phos, ERCP and anemia workup. - Consult hepatology - Routine labs - NPO at MN, mIVF - Monitor hgb, transfuse < 7, Give 2 units for hgb 6.7 - restart home med and immuno meds - Will continue to monitor [1] Past Medical History: Diagnosis Date Cirrhosis of liver not due to alcohol 03/15/2024 Colon cancer 10/2020 Primary sclerosing cholangitis Ulcerative colitis diagnosed in the 80s- no surgery [2] Past Surgical History: Procedure Laterality Date LAPAROTOMY EXPLORATORY N/A 06/03/2024 Laterality: N/A; Surgeon: Dalia Thomas MD; Location: [facility] MAIN OR LIVER TRANSPLANT, ORTHOTOPIC N/A 05/25/2024 Laterality: N/A; Surgeon: Dalia Thomas MD; Location: [facility] MAIN OR EXAM UNDER ANESTHESIA ANORECTAL N/A 02/28/2022 Laterality: N/A; Surgeon: Miroslava Joiner MD; Location: [facility] PERIOP ENDOSCOPY SMALL INTESTINE POUCH DIAGNOSTIC N/A 02/28/2022 Laterality: N/A; Surgeon: Miroslava Joiner MD; Location: [facility] PERIOP LOOP ILEOSTOMY CLOSURE N/A 06/04/2021 Laterality: N/A; Surgeon: Miroslava Joiner MD; Location: [facility] MAIN OR ENDOSCOPY SMALL INTESTINE POUCH DIAGNOSTIC N/A 04/22/2021 Laterality: N/A; Surgeon: Miroslava Joiner MD; Location: [facility] ENDOSCOPY COLOPROCTECTOMY TOTAL W/ LOOP ILEOSTOMY OR CREATION ILEAL RESERVOIR LAPAROSCOPIC N/A 02/12/2021 Laterality: N/A; Surgeon: Mrioslava Joiner MD; Location: [facility] MAIN OR SIGMOIDOSCOPY DIAGNOSTIC N/A 02/04/2021 Laterality: N/A; Surgeon: Miroslava Joiner MD; Location: [facility] ENDOSCOPY HIP REPLACEMENT Left 2005 COLONOSCOPY DIAGNOSTIC Nov 20202001 [3] Current Facility-Administered Medications Medication Dose Route Frequency Provider Last Rate Last Admin Acetaminophen (TYLENOL) tablet 650 mg 650 mg Oral Q6H PRN Terrance Kate MD Enoxaparin Sodium (LOVENOX) injection 30 mg 30 mg Subcutaneous Q24H Terrance Kate MD Ondansetron 4mg/2ml (ZOFRAN) injection 4 mg 4 mg Intravenous Q6H PRN Terrance Kate MD Or Ondansetron (ZOFRAN) tablet 4 mg 4 mg Oral Q6H PRN Terrance Kate MD Sodium chloride 0.9% IV solution 250 mL 250 mL Intravenous PRN Terrance Kate MD Sodium chloride 0.9% IV solution Intravenous Continuous Terrance Kate MD Cosigned by Sonya Treviño MD, MPH at 12/28/2024 5:21 PM EDT [facility] History and physical note Chief Complaint: Elevated Alkaline Phosphatase, ERCP and anemia workup HPI: Jc Dunaway, 59 yr M w/ PMHx of colon cancer, UC, PSC cirrhosis s/p OLT 05/25/24 ([place]) w/ Janay-en-Y choledochojejunostomy, complicated post LT course who was admitted to [facility] 12/26/24 due to elevated alk phos, ERCP and anemia workup. Patient states last Thursday was getting workup with hepatology, was found to have elevated Alk phos and low hgb level. Was starting iron treatment for anemia with PCP. Patient's partner in room, states been dealing with GI bleed/anemia for some time, PCP haven't addressed issue. Per chart review, hepatology 12/15/24 recommended that patient needed MRCP to due to unusual elevated Alk phos level without elevated LFTs. Question if patient has HAT or bilary ischemic cholangiopathy. Patient has had anemia, last low 6.1 on 12/07/24. In room, patient in no acute distress, vitals stable. Patient denies fever, chills, shortness of breath, chest pain, vomiting, or abd pain. Patient also denies any sick contacts or recent URI. Patient endorses having decrease appetite, nausea diarrhea with some blood in stool. Physical exam benign. Labs notable for Alk sal 685, hgb 6.7, WBC 1.79. LFT WNL Past Medical History[1] Past Surgical History[2] Social History Social History Socioeconomic History Marital status: Spouse name: Not on file Number of children: Not on file Years of education: Not on file Highest education level: Not on file Occupational History Not on file Tobacco Use Smoking status: Never Smokeless tobacco: Never Vaping Use Vaping status: Never Used Substance and Sexual Activity Alcohol use: Not Currently Drug use: Not Currently Sexual activity: Not on file Other Topics Concern Not on file Social History Narrative Not on file Social Drivers of Health Financial Resource Strain: Low Risk (05/26/2024) Overall Financial Resource Strain (CARDIA) Difficulty of Paying Living Expenses: Not hard at all Food Insecurity: No Food Insecurity (08/01/2024) NCSS - Food Insecurity Worried About Running Out of Food in the Last Year: No Ran Out of Food in the Last Year: No Transportation Needs: No Transportation Needs (08/01/2024) NCSS - Transportation Lack of Transportation: No Physical Activity: Not on file Stress: Not on file Social Connections: Not on file Personal Safety: Not At Risk (08/01/2024) NCSS - Interpersonal Safety Feels Physically and Emotionally Safe: Yes Physically Hurt by Someone: No Humiliated or Emotionally Abused by Someone: No Housing Stability: Not At Risk (08/01/2024) NCSS - Housing/Utilities Has Housing: Yes Worried About Losing Housing: No Unable to Get Utilities: No Family History Problem Relation Age of Onset Colorectal Cancer Neg Hx Medications: Current Medications[3] Allergies: Patient has no known allergies. Review of Systems: Const: negative for fever and hot flashes, malaise HEENT: negative for headaches or visual changes CV: negative for chest pain, dyspnea on exertion, edema, irregular heartbeat and shortness of breath Lungs: negative for cough, shortness of breath and sputum changes GI: negative for abdominal pain, blood in stools, change in bowel habits, change in stools, hematemesis and melena, appetite loss and nausea/vomiting : negative for dysuria and hematuria MSK: negative for joint pain or joint deformity Neuro: negative for confusion, Psych: negative for depression, alert, oriented Derm: negative for rash or pruritus The remainder of the twelve system review is negative. Physical Exam Vital Signs: BP 107/59 (BP Location: Right arm, BP Position: Lying) Pulse 91 Temp 98.8 F (37.1 C) (Oral) Resp 16 Ht 1.676 m (5' 6) Wt 45.3 kg (99 lb 14.4 oz) SpO2 99% BMI 16.12 kg/m Smoking Status Never General: Well-developed, well-nourished. Alert and oriented to person, place and time. No acute distress HEENT: Atraumatic, normocephalic, extra ocular muscles intact. No scleral icterus. Neck: supple Heart: regular rate and rhythm no murmurs Lungs: Clear to ascultation. No wheezes Abdomen: Soft, non-tender, non-distended, positive bowel sounds. No rebound, guarding, or peritoneal signs. Extremities: Non-tender, no edema, (MUST CHECK LOWER EXTREMITY PULSES) Genitalia: appropriate Skin: no lesions Laboratory Data: Lab Results Component Value Date WBC 2.9 12/14/2024 HGB 6.1 12/14/2024 HCT 20.0 12/14/2024 PLATELET 444 12/14/2024 MCV 96.4 (H) 10/10/2024 Lab Results Component Value Date SODIUM 140 12/14/2024 POTASSIUM 4.4 12/14/2024 CHLORIDE 107 12/14/2024 CO2 24 12/14/2024 BUN 27 12/14/2024 CREATSERUM 1.13 12/14/2024 GLUCOSE 109 12/14/2024 Lab Results Component Value Date ALT 12 12/14/2024 AST 22 12/14/2024 GGT 30 12/14/2024 ALKPHOS 741 12/14/2024 BILITOTAL <0.15 12/14/2024 BILIDIRECT 0.11 12/14/2024 @LABLAST(cyclosporin2:3,tacrolimus: 3,siroliumus:3])@ Diagnostic Imaging: Impression/Plan: Jc Dunaway, 59 yr M w/ PMHx of colon cancer, UC, PSC, ETOH cirrhosis s/p OLT 05/25/24 ([place]) who was admitted [facility] 12/26/24 due to elevated alk phos, ERCP and anemia workup. - Consult hepatology - Routine labs - NPO at MN, mIVF - Monitor hgb, transfuse < 7, Give 2 units for hgb 6.7 - restart home med and immuno meds - Will continue to monitor [1] Past Medical History: Diagnosis Date Cirrhosis of liver not due to alcohol 03/15/2024 Colon cancer 10/2020 Primary sclerosing cholangitis Ulcerative colitis diagnosed in the 80s- no surgery [2] Past Surgical History: Procedure Laterality Date LAPAROTOMY EXPLORATORY N/A 06/03/2024 Laterality: N/A; Surgeon: Dalia Thomas MD; Location: [facility] MAIN OR LIVER TRANSPLANT, ORTHOTOPIC N/A 05/25/2024 Laterality: N/A; Surgeon: Dalia Thomas MD; Location: [facility] MA[facility] OR EXAM UNDER ANESTHESIA ANORECTAL N/A 02/28/2022 Laterality: N/A; Surgeon: Miroslava Joiner MD; Location: [facility] PERIOP ENDOSCOPY SMALL INTESTINE POUCH DIAGNOSTIC N/A 02/28/2022 Laterality: N/A; Surgeon: Miroslava Joiner MD; Location: [facility] PERIOP LOOP ILEOSTOMY CLOSURE N/A 06/04/2021 Laterality: N/A; Surgeon: Miroslava Joiner MD; Location: [facility] MA[facility] OR ENDOSCOPY SMALL INTESTINE POUCH DIAGNOSTIC N/A 04/22/2021 Laterality: N/A; Surgeon: Miroslava Joiner MD; Location: [facility] ENDOSCOPY COLOPROCTECTOMY TOTAL W/ LOOP ILEOSTOMY OR CREATION ILEAL RESERVOIR LAPAROSCOPIC N/A 02/12/2021 Laterality: N/A; Surgeon: Miroslava Joiner MD; [facility] SIG[facility] DIAGNOSTIC N/A 02/04/2021 Laterality: N/A; Surgeon: Miroslava Joiner MD; Location: [facility] ENDOSCOPY HIP REPLACEMENT Left 2005 COLONOSCOPY DIAGNOSTIC Nov 20202001 [3] Current Facility-Administered Medications Medication Dose Route Frequency Provider Last Rate Last Admin Acetaminophen (TYLENOL) tablet 650 mg 650 mg Oral Q6H PRN Terrance Kate MD Enoxaparin Sodium (LOVENOX) injection 30 mg 30 mg Subcutaneous Q24H Terrance Kate MD Ondansetron 4mg/2ml (ZOFRAN) injection 4 mg 4 mg Intravenous Q6H PRN Terrance Kate MD Or Ondansetron (ZOFRAN) tablet 4 mg 4 mg Oral Q6H PRN Terrance Kate MD Sodium chloride 0.9% IV solution 250 mL 250 mL Intravenous PRN Terrance Kate MD Sodium chloride 0.9% IV solution Intravenous Continuous Terrance Kate MD Cosigned by Sonya Treviño MD, MPH at 12/28/2024 5:21 PM EDT documented in this encounter [facility] 12-26-2024 Nurse Note On admission to R[facility]0, from Home, a dual RN initial assessment of skin condition was performed by Marcus Story, RN and Bird South, RN. Skin Assessment: Not WDL LDA Added: Yes Pictures Added: Yes Based on fall prevention risk stratification tool, patient is at Medium risk for fall. The following interventions were implemented: Low Risk 0-16 GREEN Call light plugged into bed Fall Color placed above door Gait belt at bedside Education on falls provided. Med. Risk 18-38 YELLOW Call light plugged into bed Fall Color placed above door Gait belt at bedside Education on falls provided Initiate Bed-Exit Alarm. High Risk 40-54 RED Call light plugged into bed Fall Color placed above door Gait belt at bedside Education on falls provided Initiate Bed-Exit Alarm Move patient to room closest to nurses station when available. [facility] 12-21-2024 Radiology Diagnostic study note [facility] 12-21-2024 Discharge summary Note Date/Time December 21, 2024 8:35pm [facility] Medical Records Department [address] [place] [address] Emergency Department Summary 12/21/24 MR#: [id number] Acct: [id number] Name: JC DUNAWAY Rep #:[id number] : 1965 59 From: Michelle Barrera MD PCP: Dr. Olive Valera MD Status:REG E R Location: ED HPI HPI - GI History of Present Illness Chief Complaint: GI Bleed Narrative Narrative: Patient is a 59-year-old male presenting to the emergency department for rectal bleeding. Patient has a past medical history of liver transplant, colon cancer,UC. Patient states his colon cancer was in January 2021 and he had a partial colectomy. States that he is in remission and not on any current chemotherapy or radiation. Patient had his liver transplant done in June of this year at [facility]. States that he takes his antirejection meds as prescribed. He reports about 3 to 4 days ago he had a small amount of bright red blood per rectum. States he always has painful bowel movements since his surgery in 2020. He endorses intermittent abdominal pain, no pain at time of evaluation. Reports he had a fever on Thursday 102 but none since. His only complaint today is generalized fatigue that is worse than normal. He denies chest pain, shortness of breath, nausea, vomiting, diarrhea, dysuria or hematuria. Denies any melena, hemoptysis or hematemesis. He is not on any oralanticoagulation. Patient was at the infusion center for an iron infusion today when [facility] called with labs that were drawn yesterday that showed a hemoglobin of 5.8 and he was told to come here. He states he received his full iron infusion. [facility] Medical History Hemorrhoids History of steroid therapy Low iron Easy bruising History of stress test Elevated LFTs Iron deficiency anemia due to chronic blood loss History of colon cancer Injury of head and neck Non-smoker Hx of fracture of left hip Weight loss Ulcerative colitis Home Medications ?Medication ?Instructions ?Recorded ?Last Taken ?Type ursodiol 250 mg tablet 250 mg PO BID #60 TABLETS Unknown Rx aspirin 81 mg chewable tablet 1 tab PO QDAY 08/17/24 U nknown History calcium 600 mg (as 1 tab PO QDAY 08/17/24 Unkno wn History carbonate)-vitamin D3 10 mcg (400 unit) tablet calcium polycarbophil 625 mg tablet 625 mg PO QDAY Unknown History doxycycline monohydrate 100 mg 100 mg PO BID 08/17/24 Unknown History capsule entecavir 0.5 mg tablet 0.5 mg PO QDAY 08/17/24 Unkn own History glycerin-witch kentrell 12.5 %-50 % 1 pad topical 4XD PRN hemorrhoids 08/17/24 Unknown History topical pads loperamide 2 mg capsule 2 mg PO Q6H PRN loose stool 08/17/24 Unknown History (Anti-Diarrheal (loperamide)) mycophenolate mofetil 250 mg 500 mg PO BID 08/17/24 Un known History capsule prednisone 5 mg tablet 5 mg PO QDAY 08/17/24 Unknow n History sulfamethoxazole 800 1 tab PO QDAY 08/17/24 Unkno wn History mg-trimethoprim 160 mg tablet tacrolimus 1 mg capsule, 3 mg PO Q12H 08/17/24 Unknow n History immediate-release valganciclovir 450 mg tablet 450 mg PO Q12H 08/17/24 U nknown History Allergy/AdvReac Type Severity Reaction Status Date / Time No Known Allergies Allergy Verified 12/21/24 12:33 Surgical History Liver transplant status History of esophagogastroduodenoscopy (EGD) History of ileostomy History of colon resection Hx of colonoscopy Social History household members: spouse Smoking Status: Never smoker second hand exposure: No details: very rarely substance use type: does not use cruz/nondenominational: Restoration seatbelt use: always do you feel safe at home: Yes ROS ROS ED ROS Narrative see HPI EXAM Physical Exam Narrative Exam Narrative: Vital signs: Reviewed General: Alert and orientedx3. No acute distress. Chronically ill-appearing. HEENT: Head is normocephalic and atraumatic, sinuses nontender, pupils equal round and reactive. No scleral icterus. Nares are patent. Oropharynx and throat exams normal. Neck: Supple without lymphadenopathy nontender Cardiovascular: Regular rate and rhythm, no murmurs. No rubs or gallops. Normal S1 and S2 Respiratory: Clear to auscultation bilaterally. No wheezes, rales, rhonchi Abdominal: Soft and nontender. Normal bowel sounds. No guarding or rebound. Nonsurgical abdomen. Well-healed surgical scar on abdomen. : Rectal exam done with store gift wrap associate RN at bedside. No gross blood noted on visual inspection. No hemorrhoids. No fissures. On internal rectal exam no gross blood. Extremities: No lower extremity edema. No tenderness. No bruising. Normal range of motion. Normal sensation. Skin: No rash or redness. The rest of the physical exam is unremarkable Const Vital Signs: 12/21/24 12:32 12/21/24 13:31 12/21/24 15:10 Temperature 97.9 F 97.7 F L Temperature Source Oral Oral Pulse Rate 84 80 90 Respiratory Rate 16 18 18 Blood Pressure 106/62 109/64 133/78 H Blood Pressure Mean 76 79 96 Blood Pressure Source Monitor Blood Pressure Position Pulse Ox 99 100 100 Oxygen Delivery Method Room Air Room Air Room Air 12/21/24 15:16 12/21/24 15:21 12/21/24 15:31 Temperature 97.8 F 97.8 F 97.8 F Temperature Source Oral Oral Oral Pulse Rate 90 92 84 Respiratory Rate 18 18 26 H Blood Pressure 123/73 H 123/73 H 117/70 Blood Pressure Mean 89 89 85 Blood Pressure Source Monitor Blood Pressure Position Sitting Pulse Ox 100 100 100 Oxygen Delivery Method Room Air Room Air Room Air 10/22/25 16:31 Temperature 97.8 F Temperature Source Oral Pulse Rate 82 Respiratory Rate 18 Blood Pressure 122/74 H Blood Pressure Mean 90 Blood Pressure Source Blood Pressure Position Pulse Ox 100 Oxygen Delivery Method Room Air MDM MDM MDM Narrative Medical decision making narrative: Patient is a 59-year-old male presenting to the emergency department for anemia and fatigue. Patient was seen and examined. Vitals are stable. Patient resting in bed comfortably in no acute distress. Differential includes but is not limited to: UGIB including PUD, gastritis, LGIBincluding AVM, diverticulitis, hemorrhoids, fissures Patient has no history of alcohol abuse, no history of known varices. I do not think this is variceal bleeding. He has no abdominal pain, do not think this isSBP. Patient was typed and screened for 2 units of PRBC. Coagulation studies obtained. Tacrolimus level ordered. CBC with chronic leukopenia of 1.9 and acute on chronic anemia of 5.6. No thrombocytopenia. INR of 1.2. PT of 15.3. PTT of 39.2. BMP with chronic kidney dysfunction with BUN of 30 and creatinine of 1.3. Baseline elevated alk phos of 829, total bilirubin, AST and ALT within normal limits. Ammonia is not elevated. Lipase within normal limits. CT of the abdomen pelvis shows no acute abnormalities. Rectal exam reveals no gross blood, no hemorrhoids or fissures. Fecal occult was positive. Patient given IVProtonix. Given the patient is 6 months out from a liver transplant think it isappropriate that the patient be transferred to [facility] where the liver transplant was done for his GI bleed requiring PRBC. Patient was accepted by the transplant team, Dr. Melvin. Waiting on open bed for transfer at this time. I was called back in the patient's room by nursing staff, patient is asking now to leave. I had an extensive discussion at bedside including the risks of morbidity and mortality if he leaves the hospital AGAINST MEDICAL ADVICE. and patient discussed and patient states he still wants to go home. He has capacity to make his own medical decisions and accepts the risks of leaving and not having continued care for a GI bleed with acute on chronic anemia. AMA paperwork was signed by patient. He is agreeable with staying for second unit of PRBC. Clinical impression GI bleed Acute on chronic anemia History & Record Review Discussion w/independent historian: Patient Additional record(s) reviewed:: Prior labs Lab Data Attestation: I reviewed the patient's lab results. Labs: Laboratory Results - last 24 hr 12/21/24 12/21/24 12/21/24 13:05 13:26 15:21 WBC 1.9 L RBC 2.04 L Hgb 5.6 L* Hct 18.4 L MCV 90.2 MCH 27.5 MCHC 30.4 L RDW Std Deviation 55.7 H RDW Coeff of Beatrice 17.1 H Plt Count 566 H MPV 9.7 Neut % (Auto) Not Reportable Absolute Neuts (auto) 0.6 L Absolute Lymphs (auto) 0.86 Total Counted 100 Neutrophils % (Manual) 28 L Band Neutrophils % 6 H Lymphocytes % (Manual) 45 H Monocytes % (Manual) 20 H Eosinophils % (Manual) 1 Toxic Granulation 2+ Dohle Bodies 3+ Platelet Estimate ADEQUATE Plt Morphology Comment LARGE Ovalocytes 1+ PT 15.3 H INR 1.2 APTT 39.2 H Sodium 139 Potassium 4.3 Chloride 105 Carbon Dioxide 23.7 Anion Gap 10 BUN 30 H Creatinine 1.38 H Estim Creat Clear Calc 35.75 L Est GFR (MDRD) Non-Af 59 L BUN/Creatinine Ratio 21.4 H Glucose 94 Calcium 8.5 Total Bilirubin 0.17 Direct Bilirubin 0.12 AST 17 ALT 20 Alkaline Phosphatase 829 H Ammonia 11.6 L Total Protein 6.2 Albumin 3.3 L Globulin 2.9 Lipase 17 Urine Color Yellow Urine Clarity Clear Urine pH 6.0 Ur Specific Hudson 1.010 Urine Protein 15 H Urine Glucose (UA) Normal Urine Ketones Negative Urine Occult Blood Negative Urine Nitrite Negative Urine Bilirubin Negative Urine Urobilinogen Normal Ur Leukocyte Esterase Negative Urine RBC 0-5 SEEN Urine WBC 0-5 SEEN Ur Squamous Epith Cells 0-5 SEEN Urine Bacteria 0 SEEN Urine Mucus 0 SEEN Blood Type O POSITIVE Antibody Screen NEGATIVE Crossmatch See Detail Radiography Diagnostic Testing: Clinical Impression(s) from Imaging Studies Abdomen/Pelvis CT 12/21/24 12:54 IMPRESSION: No acute abdominopelvic abnormalities. Reading Location: [facility] Discharge Plan Triage Chief Complaint: GI Bleed ED Provider: Michelle Barrera Dx/Rx/DC Orders Prescriptions: No Action doxycycline monohydrate 100 mg capsule 100 mg PO BID loperamide [Anti-Diarrheal (loperamide)] 2 mg capsule 2 mg PO Q6H PRN (Reason: loose stool) calcium polycarbophil 625 mg tablet 625 mg PO QDAY glycerin-witch kentrell 12.5-50 % pads, medicated 1 pad topical 4XD PRN (Reason: hemorrhoids) aspirin 81 mg tablet,chewable 1 tab PO QDAY tacrolimus 1 mg capsule 3 mg PO Q12H calcium carbonate-vitamin D3 600 mg-10 mcg (400 unit) tablet 1 tab PO QDAY entecavir 0.5 mg tablet 0.5 mg PO QDAY mycophenolate mofetil 250 mg capsule 500 mg PO BID prednisone 5 mg tablet 5 mg PO QDAY sulfamethoxazole-trimethoprim 800-160 mg tablet 1 tab PO QDAY valganciclovir 450 mg tablet 450 mg PO Q12H ursodiol 250 mg tablet 250 mg PO BID Qty: 60 5RF Primary Care Provider: Olive Valera Referrals: Olive Valera DO [Primary Care Provider, [facility]] Print Language: Latvian What to do if you have Problems For any increased pain, shortness of breath, bleeding, nausea or vomiting, chestpain, or any unexpected problems, contact your Primary Care Provider. Call [facility] ([phone]) or report to the closest Emergency Room. Call 911 if necessary. 12/21/24 1738 <Electronically signed by Michelle Barrera MD> Cosigner Signature (if applicable): CC: Dr. Olive Valera MD ~ Signed ADDENDUM by Dr. Rhett Liang DO on 12/21/24 at 1935 Patient was signed out to me by Dr. Barerra. It was reported that the patient signed out AGAINST MEDICAL ADVICE however he was agreeable to staying for a second unit of packed RBCs. During the second transfusion, patient developed a fever of 100.5. Transfusion was immediately stopped for concern of transfusion reaction. Nursing following transfusion reaction protocol. I reviewed the notes and labs from Dr. Barrera. Fever may be secondary to transfusion reaction versus transplant rejection versus infection such as mild risk for UTI or bacteremia. I spoke with the patient as well as the family member in the room. I updated him that he developed a fever. He states he is allowed to have 500 mgof Tylenol for fever. This was ordered. I explained to him my concerns for a transfusion reaction versus infection versus transplant rejection as well as hissevere anemia. I told him that if he has any of these they can result in and he needs further workup and management. Patient states that he wants to leave AGAINST MEDICAL ADVICE. He understands that he will not be getting any more blood. He states he does not want a repeat hemoglobin drawn. On he does not want labs drawn for a transfusion reaction workup for transplant rejection or infection. He is only in agreement to receiving Tylenol. I personally explained to him that I do not support leaving AGAINST MEDICAL ADVICE. That choosing to do so may result in permanent bodily harm or . I discussed at length that without further evaluation and monitoring there may be unforeseen circumstances and deterioration causing permanent bodily harm or because of his choice. He is alert and oriented and can make his own decisions. He states that he is aware of the serious risks as explained, but continues to wishto leave AGAINST MEDICAL ADVICE. Family in the room was present during the conversation. She understands and respects his wishes. Considering his decision to leave against medical vice, I did tell him that he needs to follow-up with his transplant specialist as well as his primary care physician and GI. I will send him for a repeat CBC to be performed tomorrow whether he wishes to have this performed or not. He was advised that he should return to the ED at any time if he changes his mind or if his condition begins to change or worsen. He confirmed understanding of the plan. Patient left AGAINST MEDICAL ADVICE. 12/21/241934<Electronically signed by Rhett Liang DO> Cosigner Signature (if applicable): cc: Dr. 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 coli. ? Q fever on doxycycline- AB+, PCR negative OTHER MEDICAL DIAGNOSIS: UC, colon cancer s/p colectomy / IPAA Perirectal inflammatory mass REASON FOR VISIT: Management of post OLT care and management of immunosuppression HISTORY OF PRESENT ILLNESS: Jc Dunaway is a 59 y.o. 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 Had episode of N/V last week. Then had repeat low grade fever on Thursday. His appetite continues to be poor. Avoids food as he then has to have BM and that is painful. He has lost weight Still c/o hemorrhoids. Painful defecation. Seen by GI recently. MRI ordered Today in clinic the patients denies diarrhea, hair loss, skin rashes, fatigue, jaundice, confusion,weakness. Current IS : Tacrolimus 4 mg BID (trough 8.5 on 08/15/24 ), Cellcept 500 mg bid, prednisoneoff REVIEW OF SYSTEMS: Constitutional: no fevers, no chills, no weakness. HEENT: no blurring of vision, no diplopia. Respiratory: no sob, no wheezing, no cough. Cardiovascular: no chest pain, no PND/orthopnea, no edema Gastrointestinal: no diarrhea, no abdominal pain, no nausea, no vomiting. Genitourinary: no dysuria Musculoskeletal: no joint pain, ROM not limited. Neurological: no headache, no focal deficits. Psychiatry: no anxiety, no depression. All other systems were reviewed and were negative. ALLERGIES: No Known Allergies HOME MEDICATIONS: Current Outpatient Medications Medication Instructions aspirin (ASPIRIN LOW DOSE) 81 mg, Oral, DAILY Calcium Carbonate-Vitamin D (CALCIUM-CARB 600 + D PO) 1 tablet, DAILY Entecavir (BARACLUDE) 0.5 mg, Oral, DAILY Loperamide (IMODIUM) 2 mg, Oral, 4 TIMES DAILY NEEDED Mycophenolate mofetil (CELLCEPT) 500 mg, Oral, EVERY 12 HOURS NON-STANDARD polycarbophil (FIBERCON) 625 mg, Oral, DAILY Sulfamethoxazole-trimethoprim 800-160 MG per tablet 1 tablet, Oral, EVERY 24 HOURS Tacrolimus (PROGRAF) 1 MG capsule Take 4 capsules by mouth Every morning AND 3 capsules every evening. Tamsulosin HCl (FLOMAX PO) DAILY ursodiol (ACTIGALL) 600 mg, Oral, 2 TIMES DAILY valGANciclovir (VALCYTE) 450 mg, Oral, 2 TIMES DAILY witch kentrell-glycerin Pads Apply topically to the affected area 4 times daily as needed for Itching or anorectal pain SOCIAL HISTORY: Social Situation: lives with at home. 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 They will take over farm Tobacco: none Alcohol: none Illicit's: none FAMILY HISTORY: No history of Liver, GI malignancy in first degree family member, no history of IBD Physical Examination: Measurements: BP 116/55 (BP Location: Right arm, BP Position: Sitting) Pulse 86 Temp 98.2 F (36.8 C) (Infrared) Ht 1.676 m (5' 6) Wt 45.5 kg (100 lb 3.2 oz) BMI 16.17 kg/m Smoking Status Never Wt Readings from Last 3 Encounters: 10/10/24 45.5 kg (100 lb 3.2 oz) 09/21/24 47.2 kg (104 lb) 09/21/24 47.2 kg (104 lb) General: The patient is in no acute distress. frail Eyes: Sclera anicteric. ENT: No oral lesions. Skin: No rash or jaundice, Respiratory: Lungs clear to auscultation. Cardiovascular: Regular rate, no murmurs, no edema b/l. Abdomen: Soft, Scar+, non-tender, liver , spleen not palpable, no ascites. Extremities: No muscle wasting, no gross arthritic changes. Neurologic: Alert and oriented, cranial nerves grossly intact LABS Lab Results Component Value Date WBC 8.9 10/03/2024 HGB 9.3 10/03/2024 HCT 29.5 10/03/2024 MCV 98.8 (H) 08/09/2024 Lab Results Component Value Date GLUCOSE 138 10/03/2024 CALCIUM 9.0 10/03/2024 CO2 21.7 10/03/2024 BUN 36 10/03/2024 Lab Results Component Value Date INR 1.1 08/01/2024 INR 1.1 06/10/2024 INR 1.1 06/09/2024 Lab Results Component Value Date ALT 71 10/03/2024 AST 67 10/03/2024 GGT 167 10/03/2024 ALKPHOS 266 10/03/2024 Lab Results Component Value Date TACROLIMUS 5.9 08/09/2024 IMAGING: MRI 07/2024: IMPRESSION: 1. Changes from liver transplant and choledochojejunostomy with mild to moderate biliary dilation which could be secondary to narrowing/stricture at the choledochojejunostomy. ENDOSCOPY REPORTS/PATHOLOGY REPORTS: FSS 07/2024: Findings: Patient is status-post total colectomy with an ileal pouch-anal anastomosis. The j-pouch appeared normal. Biopsies were taken with a cold forceps for histology. The pre-pouch ileum contained one sessile, non-bleeding polyp. The polyp was 2 mm in diameter. The polyp was removed with a cold biopsy forceps. Resection and retrieval were complete. Impression: - The j-pouch is normal, healthy. Biopsied to exclude microscopic inflammation or opportunistic infections - One polyp in the pre-pouch ileum, removed with a cold biopsy forceps. Resected and retrieved. ASSESSMENT/PLAN: Jc Dunaway is a 59 y.o. 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 Status post OLT on 05/25/2024: - Etiology for CLD: PSC - CMV status: D+ /R+, EBV IgG D /R , HBcAb: D / R - Graft functions spiked up. Will repeat today and decide if we need to admit for ERCP/Cholangitis r/o +/- EUS liver bx - Immunosuppressive medication regimen: - Tacrolimus 4 /3 (trough 10.2 on ), Cellcept 500 mg bid, prednisoneoff - Will reduce pred to 2.5 mg - Will check labs taper protocol -CBC,BMP,Hepatic panel, Pt/INR, CNI trough - HAT prophylaxis: ASA 81 mg - Explant pathology with no HCC 2. UC: - Has sstablished with GI 3.Fevers: - Follows with ID. - Will decide if he needs admission for biliary pathology v OP Abx pre ID Post LT preventative care: - Dermatology: needs to establish - Lipids/Dyslipidemia: per protocol - HbA1c:per protocol - CKD: Albumin/Protein ration- ; UA- - DEXA: Address at 2 year [place] post OLT - Immunization: - Immunization History Administered Date(s) Administered [id number] COVID-19 monovalent vaccine, mRNA, Pfizer, 0.3 ML 05/23/2020, 06/13/2020 - COVID:as above - PCV13/PPV23: needs - Hep A/ Hep B:needs - Flu:defer - Colonoscopy/FSS:uptodate Babs Marley M.D. International Trade Teacher of Clinical Medicine Gastroenterology, Hepatology, and Nutrition Pager :[phone] * Kamilah Fernández RN - 10/10/2024 2:00 PM EDT Images from the original note were not included. PREP SHEET FOR LIVER SURGERY & TRANSPLANT HEPATOLOGY CLINIC Patient Name: Jc Dunaway ([id number]) Pump Installation And Servicer: Shanell Helms Transplant Field Aide: Babs Marley IMMUNOSUPPRESSION & LAB INFORMATION On Prednisone? No Current Immunosuppressive Medication(s) Immunosuppressive Agents Mycophenolate mofetil (CELLCEPT) 250 MG capsule Take 2 capsules by mouth every 12 hours. Tacrolimus (PROGRAF) 1 MG capsule Take 4 capsules by mouth Every morning AND 3 capsules every evening. Current lab frequency ordered: Weekly Labs needed in clinic today? Yes - a full set of labs (no Tacrolimus). Orders are in. (if a K/L please review Nephrology protocol for 1st year lab schedule) New standing lab order needed? No Preferred lab: [facility] - [address] - [place] [address] [facility] [address] COORDINATOR NOTES FOR APPOINTMENT: - Patient needs labs today (no Tacrolimus) due to elevated LFTs shown on 10/03/24. - Please remove Valcyte from the patient's med list. - Q fever result from 09/09/24 was negative. Patient to see ID as needed. - Lab results from 10/03/24: Creat 1.58, Tac 10.2 - Per DC Summary on 08/09/24: he was found to be positive for Q fever -Fever phase 1 igG - negative ; Fever Phase 2 igG - 1:32 (antibodies detected). He will discharge on Doxycycline x 14 days 08/08-08/23 - with plan on repeat Q fever antibody in 4 weeks (ordered as internal lab through [facility]) - to be followed up by Dr. Odell with Transplant ID to determine if patient needs to be seen outpatient follow up. His fevers and diarrhea are associated with the Positive Q fever. - 05/25/2024: DDLT with janay-en-y choledochojejunostomy - 06/03/2024: ex lap, small bowel pelvic adhesion and partial dehiscence of CDJ; revision of choledochojejunostomy INFORMATION ON TRANSPLANTED ORGAN COMMENTS Type of Transplant: Liver Date of Transplant: 05/25/2024 Time elapsed since transplant: 17 day(s) Primary Disease: Primary Sclerosing Cholangitis: Ulcerative Colitis Donor Type: Donation after Circulatory Induction Therapy Used: Steroid Taper Risk Criteria Present: yes [place] Protocol Labs First set due AFTER: 06/22/2024 and BEFORE: 07/20/2024 Date 1st set of protocol labs completed: 06/23/24 Second set due AFTER 04/25/2025 and BEFORE: 06/24/2025 Date 2nd set of protocol labs completed: DIALYSIS CVC / OTHER LINES OR DRAINS PRESENT AT DISCHARGE Type: PICC Location: Right arm Date removed: 06/24/24 CMV & EBV SEROLOGIES AND FOLLOW UP COMMENTS CMV IgG Donor / Recipient: Donor: Positive Recipient: Lab Results Component Value Date CMVIGG Negative 05/25/2024 Lab monitoring at this time: Yes On an anti-viral? No Date to discontinue: 08/25/2024 EBV IgG Donor / Recipient Donor: Positive Recipient: Lab Results Component Value Date EBVVCAIGG Positive (A) 05/25/2024 Lab monitoring required: no FOLLOW UP FOR HCV AND HBV DONORS COMMENTS Hepatitis C+/MYLA- donor? no Hepatitis C+/MYLA+ donor? no Patient w/history of HBV or Donor HBV core +? yes (donor) Anti-viral prescribed: Entecavir Current dose: 0.5mg Daily HBV DNA & sAg due Q6 months Most recent results: DUE: October 2024 INTERMEDIATE IMAGING & PROCEDURE FOLLOW UP COMMENTS History of HCC: No Biliary Stent or drain: no Date of last procedure: N/A Next procedure due: N/A * Faviola Blank RN - 10/10/2024 2:00 PM EDT Images from the original note were not included. Nursing Assessment In Clinic Patient is accompanied to clinic today by: Did patient require a wheelchair or medical transport for appointment: no Is patient employed: yes (Needed for [employer] forms) VITALS BP Readings from Last 3 Encounters: 10/10/24 116/55 09/21/24 108/68 09/21/24 110/74 Pulse Readings from Last 3 Encounters: 10/10/24 86 09/21/24 76 09/21/24 77 Wt Readings from Last 6 Encounters: 10/10/24 45.5 kg (100 lb 3.2 oz) 09/21/24 47.2 kg (104 lb) 09/21/24 47.2 kg (104 lb) 08/22/24 47.7 kg (105 lb 1.6 oz) 08/09/24 47.7 kg (105 lb 1.6 oz) 07/04/24 45.5 kg (100 lb 4.8 oz) Body mass index is 16.17 kg/m . Lab Results Component Value Date GLUCOSE 138 10/03/2024 Lab Results Component Value Date HGBA1C 5.2 05/25/2024 IMMUNOSUPPRESSION Current Immunosuppressive Medication(s) Immunosuppressive Agents Mycophenolate mofetil (CELLCEPT) 250 MG capsule Take 2 capsules by mouth every 12 hours. Tacrolimus (PROGRAF) 1 MG capsule Take 4 capsules by mouth Every morning AND 3 capsules every evening. PREFERRED LAB AND PHARMACY: [facility] - [address] - [place] [address] [facility] [address] [id number] [place] [address] [phone] [facility] [address] [facility] [address] [facility], [address] [facility] [address] ROS and SCREEN: Chest Pain: negative Cough: negative SOB: negative Abd Pain: negative Nausea: negative Vomiting: negative Diarrhea: negative Constipation: negative Dysuria: negative Edema: negative Tremors: negative Headaches: negative Wound issues: negative Any diagnosis of cancer/malignancy (any type) in the last year: no Follow with a Rope Coiling Machine Operator? no Have a Primary Care provider? yes Been seen in the last 12 months? yes Alcohol consumption?: no Cigarette smoking, smokeless tobacco or vaping/e-cigarette use?: no Marijuana (any form), CBD oil or street drug use?: no QUESTIONS OR CONCERNS TO ADDRESS WITH PHYSICIAN: documented in this encounterRiverview [facility] Institute08-11-2025 Instructions* Patient Instructions* Faviola Blank RN - 10/10/2024 2:00 PM EDT Medication changes: No changes Labs today, continue weekly Return to clinic 01/23/2025 TRANSPLANT HEPATOLOGY , [facility] as scheduled documented in this encounterRiverview Health Institute07-23-2025 History of Present illness Narrative* Flaca Matias MA - 09/21/2024 2:30 PM EDT This MA verified patients name and . * Concepción Elliott MD - 09/21/2024 2:30 PM EDT Images from the original note were not included. [facility] New Patient Consultation 09/21/2024 Referring physician: Babs Marley MD [address] [place] [address] PCP: Olive Valera [address] [facility] [address] Reason for consultation visit: Perianal pain Jc Dunaway is a 59 y.o. male with PMH of UC and colon cancer s/p colectomy and PSC s/p liver transplant who presents to [facility] for initial consultation. Inflammatory Bowel Disease History: Narrative History: History of UC, treated with sulfasalazine for many years with good effect. Underwent 2-stage TAC with IPAA [id number] for dysplasia (Rhys). Also history of PSC (Donell) 02/28/2022: EUA with fistulotomy and pouchoscopy (Rhys) OLT 05/25/2024 Pouchoscopy 08/03/2024: Normal pouch, rectal cuff okay, hemorrhoids IBD Treatment History: Oral 5-ASA: Never prescribed Topical 5-ASA: Never prescribed Oral steroids: Never prescribed Topical steroids: Never prescribed Parenteral steroids: Never prescribed Antibiotics: Never prescribed Thiopurines: Never prescribed Methotrexate: Never prescribed Infliximab: Never prescribed Adalimumab: Never prescribed Certolizumab: Never prescribed Vedolizumab: Never prescribed Ustekinumab: Never prescribed Rizankizumab: Never prescribed Tofacitinib: Never prescribed Upadacitinib: Never prescribed Other (Specify): Sulfasalazine Interval History: Mr. Dunaway presents with a history of severe perianal pain with BM. He describes burning pain withevery BM and 1-2h after. No mucus or constipation, no vomiting, no fever, chills or night sweats. Not relieved by any ointments or baths. He has a history of anal fistula in 2021. BM Frequency and consistency: Regular BM / occasional diarrhea Bleeding: Minimal (occasional on toilet paper) Nocturnal episodes: Occasional Incontinence: None Abdominal pain: None Weight Loss: None Fever: None Nausea/vomiting: None Past Medical History: Past Medical History: Diagnosis Date Cirrhosis of liver not due to alcohol 03/15/2024 Colon cancer 10/2020 Primary sclerosing cholangitis Ulcerative colitis diagnosed in the 80s- no surgery Surgical History: Past Surgical History: Procedure Laterality Date LAPAROTOMY EXPLORATORY N/A 06/03/2024 Laterality: N/A; Surgeon: Dalia Thomas MD; Location: [facility] MAIN OR LIVER TRANSPLANT, ORTHOTOPIC N/A 05/25/2024 Laterality: N/A; Surgeon: Dalia Thomas MD; Location: [facility] MAIN OR EXAM UNDER ANESTHESIA ANORECTAL N/A 02/28/2022 Laterality: N/A; Surgeon: Miroslava Joiner MD; Location: [facility] PERIOP ENDOSCOPY SMALL INTESTINE POUCH DIAGNOSTIC N/A 02/28/2022 Laterality: N/A; Surgeon: Miroslava Joiner MD; Location: [facility] PERIOP LOOP ILEOSTOMY CLOSURE N/A 06/04/2021 Laterality: N/A; Surgeon: Miroslava Joiner MD; Location: [facility] MAIN OR ENDOSCOPY SMALL INTESTINE POUCH DIAGNOSTIC N/A 04/22/2021 Laterality: N/A; Surgeon: Miroslava Joiner MD; Location: [facility] ENDOSCOPY COLOPROCTECTOMY TOTAL W/ LOOP ILEOSTOMY OR CREATION ILEAL RESERVOIR LAPAROSCOPIC N/A 02/12/2021 Laterality: N/A; Surgeon: Miroslava Joiner MD; Location: [facility] MAIN OR SIGMOIDOSCOPY DIAGNOSTIC N/A 02/04/2021 Laterality: N/A; Surgeon: Miroslava Joiner MD; Location: [facility] ENDOSCOPY HIP REPLACEMENT Left 2006 COLONOSCOPY DIAGNOSTIC Nov 20202001 Family History: Family History Problem Relation Age of Onset Colorectal Cancer Neg Hx Social History: Social History Socioeconomic History Marital status: Spouse name: Not on file Number of children: Not on file Years of education: Not on file Highest education level: Not on file Occupational History Not on file Tobacco Use Smoking status: Never Smokeless tobacco: Never Vaping Use Vaping status: Never Used Substance and Sexual Activity Alcohol use: Not Currently Drug use: Not Currently Sexual activity: Not on file Other Topics Concern Not on file Social History Narrative Not on file Social Drivers of Health Financial Resource Strain: Low Risk (05/26/2024) Overall Financial Resource Strain (CARDIA) Difficulty of Paying Living Expenses: Not hard at all Food Insecurity: No Food Insecurity (08/01/2024) NCSS - Food Insecurity Worried About Running Out of Food in the Last Year: No Ran Out of Food in the Last Year: No Transportation Needs: No Transportation Needs (08/01/2024) NCSS - Transportation Lack of Transportation: No Physical Activity: Not on file Stress: Not on file Social Connections: Not on file Personal Safety: Not At Risk (08/01/2024) NCSS - Interpersonal Safety Feels Physically and Emotionally Safe: Yes Physically Hurt by Someone: No Humiliated or Emotionally Abused by Someone: No Housing Stability: Not At Risk (08/01/2024) NCSS - Housing/Utilities Has Housing: Yes Worried About Losing Housing: No Unable to Get Utilities: No Allergies: No Known Allergies Current Medications: Current Outpatient Medications Medication Sig Dispense Refill aspirin (Aspirin Low Dose) 81 MG Chew Tab chewable tablet Chew 1 tablet daily. Calcium Carbonate-Vitamin D (CALCIUM-CARB 600 + D PO) Take 1 tablet by mouth daily. Entecavir 0.5 MG tablet Take 1 tablet by mouth daily. 30 tablet 11 Loperamide 2 MG capsule Take 1 capsule by mouth 4 times daily as needed for Diarrhea. 120 capsule 0 Mycophenolate mofetil (CELLCEPT) 250 MG capsule Take 2 capsules by mouth every 12 hours. 120 capsule 11 polycarbophil 625 MG tablet Take 1 tablet by mouth daily. 30 tablet 3 Sulfamethoxazole-trimethoprim 800-160 MG per tablet Take 1 tablet by mouth every 24 hours. 30 tablet 11 Tacrolimus (PROGRAF) 1 MG capsule Take 4 capsules by mouth Every morning AND 3 capsules every evening. 210 capsule 5 Tamsulosin HCl (FLOMAX PO) Take by mouth daily. ursodiol 300 MG capsule Take 2 capsules by mouth 2 times daily. 120 capsule 3 valGANciclovir 450 MG tablet Take 1 tablet by mouth 2 times daily. 60 tablet 2 witch kentrell-glycerin Pads Apply topically to the affected area 4 times daily as needed for Itching or anorectal pain 40 Each 0 No current facility-administered medications for this visit. Review of Systems: Review of Systems - Gastrointestinal ROS: positive for - perinal pain Vital Signs: BP 108/68 (BP Location: Right arm, BP Position: Sitting) Pulse 76 Ht 1.626 m (5' 4) Wt 47.2 kg (104 lb) SpO2 98% BMI 17.85 kg/m Smoking Status Never Physical Exam: General: awake, alert, no apparent distress, thin HEENT: No scleral icterus, moderate bitemporal wasting, external auditory canals normal, no nasal drainage, moist mucous membranes Neck: supple without lymphadenopathy Extremities: Warm and well perfused, no edema, no clubbing or cyanosis, moderate to severe distal and proximal muscle wasting Skin: Warm, dry, no rashes Neurological: Alert and oriented x3, no focal deficits, gait is normal Psychiatric: Normal affect, normal mood, pleasant demeanor Laboratory Review: I have personally reviewed the labs. Lab Results Component Value Date WBC 7.7 09/12/2024 HGB 9.7 09/12/2024 HCT 31.1 09/12/2024 PLATELET 425 09/12/2024 MCV 98.8 (H) 08/09/2024 Lab Results Component Value Date SODIUM 138 09/12/2024 POTASSIUM 4.5 09/12/2024 CHLORIDE 102 09/12/2024 CREATSERUM 1.12 09/12/2024 Lab Results Component Value Date ALT 7 09/12/2024 AST 27 09/12/2024 GGT 69 09/05/2024 ALKPHOS 148 09/12/2024 BILITOTAL 0.26 09/12/2024 BILIDIRECT 0.14 09/12/2024 Inflammatory Markers No results found for: SEDRATE No results found for: CRP Fecal Calprotectin No results found for: CLPRTCTINSTL Micronutrients Lab Results Component Value Date FERRITIN 226 08/11/2024 IRON 47 08/11/2024 TIBC 264 08/11/2024 IRONSATURAT 29 05/25/2024 TRANSFERRIN 301 05/25/2024 B12 1699 08/11/2024 Biologic Labs Lab Results Component Value Date MTUBERQUANT Negative 03/15/2024 No results found for: THIOPMETTR Lab Results Component Value Date HEPATITISB nonreactive 06/23/2024 HEPBSURFAB Negative 05/25/2024 HEPCAB Negative 05/25/2024 Lab Results Component Value Date HEPABIG Positive (A) 03/15/2024 Impression: Jc Dunaway is a 59 y.o. male with PMH of UC s/p colectomy, currently in clinical remission. His anal pain is concerning for possible fistula vs fissure. Plan: - MRI pelvis to evaluate for anal fistula or fissure. Will likely refer back to Dr. Joiner pendingresults. - In remission on recent scope, next due annually for surveillance of rectal stump in the setting of PSC and UC - Will monitor weight closely, consider RDN referral if not gaining appropriately in coming months Follow Up: We will see the patient back in clinic an interval to be determined based on the results of the above testing. The patient was given ample opportunity to ask any questions and their questions were answered. Concepción Elliott MD PGY-1 Internal Medicine Resident [facility] ATTENDING ATTESTATION: I saw and personally examined the patient 09/21/2024 with the resident/fellow. I discussed the findings and therapeutic plan with the resident/fellow. I agree with the history, physical examination, and medical decisions as outlined. I personally reviewed previous clinical lab testing, radiologic tests, diagnostic testing (including prior endoscopies and surgical procedures) listed in the resident/fellow's note or as described above with edits as necessary. I spent an additional 20 minutes with the patient with over 50% of the time counseling the patient as documented above. The remainder of the visit was spent reviewing previous/outside records and coordinating care. Maribel Brooks MD, [facility] Business Development Analyst of [employer] Operator Professor Inflammatory Bowel Disease Center Division of Gastroenterology, Hepatology, & Nutrition [facility] documented in this encounterRiverview Health Institute07-23-2025 Instructions* Patient Instructions* Maribel Brooks MD - 09/21/2024 2:30 PM EDT Please call [phone] to schedule your imaging test. documented in this encounterRiverview Health Institute07-23-2025 History of Present illness Narrative* Analisa Donovan MD - 09/21/2024 1:00 PM EDT INFECTIOUS DISEASE CLINIC PROGRESS NOTE PATIENT: Jc Dunaway CC: Follow-up HISTORY OF PRESENT ILLNESS Jc Dunaway is a 59 y.o. male who presents to the Infectious Disease clinic today for a followup visit. Mr. Dunaway was most recently seen by ID during an inpatient admission from 08/01 to 08/09 due to cyclical fevers. During admission, patient noted to have positive Q fever antibody with reflex titers and PCR pending and treated with Doxycycline for 14 days with plans to repeat serologies in 4 weeks. He also had biopsy of pelvic mass on 08/09, which showed benign fibromuscular adipose tissue with hemos iderin, reactive stromal cells, and foreign-body giant cell reaction consistent with biopsy from wall of organizing pneumonia. Since his recent hospital discharge, repeat Q fevers serologies were done on 09/09 showing phase 1 1:128 and phase 2 negative. Original serologies from hospitalization on 08/05/24 showed phase phase 1 negative, phase 2 IgG positive at 1:32. Mr. Dunaway presents to the clinic today for a follow up visit. His is present with him in clinic today. He reports that over the last 1.5 to 2 weeks, he has had no further fevers and has been feeling really well. He reports no chills, night sweats, shortness of breath, cough, nausea, vomiting, abdominal pain, diarrhea, or skin rashes/lesions. Review of Systems Constitutional: Negative for chills, fatigue and fever. HENT: Negative for sinus pain and sore throat. Eyes: Negative for pain and visual disturbance. Respiratory: Negative for cough and shortness of breath. Cardiovascular: Negative for chest pain and leg swelling. Gastrointestinal: Negative for abdominal pain, diarrhea, nausea and vomiting. Genitourinary: Negative for dysuria and hematuria. Musculoskeletal: Negative for back pain and joint swelling. Skin: Negative for rash and wound. Neurological: Negative for dizziness and headaches. Hematological: Negative for adenopathy. Does not bruise/bleed easily. Psychiatric/Behavioral: Negative for agitation and confusion. Current Outpatient Medications Medication Sig aspirin (Aspirin Low Dose) 81 MG Chew Tab chewable tablet Chew 1 tablet daily. Calcium Carbonate-Vitamin D (CALCIUM-CARB 600 + D PO) Take 1 tablet by mouth daily. Entecavir 0.5 MG tablet Take 1 tablet by mouth daily. Loperamide 2 MG capsule Take 1 capsule by mouth 4 times daily as needed for Diarrhea. Mycophenolate mofetil (CELLCEPT) 250 MG capsule Take 2 capsules by mouth every 12 hours. polycarbophil 625 MG tablet Take 1 tablet by mouth daily. Sulfamethoxazole-trimethoprim 800-160 MG per tablet Take 1 tablet by mouth every 24 hours. Tacrolimus (PROGRAF) 1 MG capsule Take 4 capsules by mouth Every morning AND 3 capsules every evening. ursodiol 300 MG capsule Take 2 capsules by mouth 2 times daily. valGANciclovir 450 MG tablet Take 1 tablet by mouth 2 times daily. witch kentrell-glycerin Pads Apply topically to the affected area 4 times daily as needed for Itching or anorectal pain No Known Allergies OBJECTIVE DATA Vitals: 09/21/24 1255 BP: 110/74 Pulse: 77 Temp: 98.4 degrees F (36.9 degrees C) TempSrc: Oral SpO2: 96% Weight: 47.2 kg (104 lb) Height: 1.626 m (5' 4) Physical Examination: Physical Exam Vitals and nursing note reviewed. Constitutional: General: He is not in acute distress. Appearance: Normal appearance. He is normal weight. He is not ill-appearing or toxic-appearing. HENT: Head: Normocephalic and atraumatic. Right Ear: External ear normal. Left Ear: External ear normal. Nose: Nose normal. No congestion or rhinorrhea. Mouth/Throat: Mouth: Mucous membranes are moist. Pharynx: Oropharynx is clear. No oropharyngeal exudate or posterior oropharyngeal erythema. Eyes: General: No scleral icterus. Right eye: No discharge. Left eye: No discharge. Extraocular Movements: Extraocular movements intact. Conjunctiva/sclera: Conjunctivae normal. Pupils: Pupils are equal, round, and reactive to light. Cardiovascular: Rate and Rhythm: Normal rate and regular rhythm. Pulses: Normal pulses. Heart sounds: Normal heart sounds. No murmur heard. No friction rub. No gallop. Pulmonary: Effort: Pulmonary effort is normal. No respiratory distress. Breath sounds: Normal breath sounds. No wheezing. Abdominal: General: Abdomen is flat. There is no distension. Palpations: Abdomen is soft. There is no mass. Tenderness: There is no abdominal tenderness. There is no guarding. Musculoskeletal: General: No swelling or deformity. Normal range of motion. Cervical back: Normal range of motion and neck supple. Right lower leg: No edema. Left lower leg: No edema. Lymphadenopathy: Cervical: No cervical adenopathy. Skin: General: Skin is warm. Capillary Refill: Capillary refill takes less than 2 seconds. Coloration: Skin is not jaundiced or pale. Findings: No bruising or lesion. Neurological: General: No focal deficit present. Mental Status: He is alert and oriented to person, place, and time. Mental status is at baseline. Psychiatric: Mood and Affect: Mood normal. Behavior: Behavior normal. Thought Content: Thought content normal. Judgment: Judgment normal. Lab Results Component Value Date WBC 7.7 09/12/2024 HGB 9.7 09/12/2024 HCT 31.1 09/12/2024 PLATELET 425 09/12/2024 MCV 98.8 (H) 08/09/2024 Lab Results Component Value Date SODIUM 138 09/12/2024 POTASSIUM 4.5 09/12/2024 CHLORIDE 102 09/12/2024 CO2 24.8 09/12/2024 BUN 22 09/12/2024 CREATSERUM 1.12 09/12/2024 Lab Results Component Value Date ALT 7 09/12/2024 AST 27 09/12/2024 GGT 69 09/05/2024 ALKPHOS 148 09/12/2024 BILITOTAL 0.26 09/12/2024 BILIDIRECT 0.14 09/12/2024 ASSESSMENT AND PLAN Jc Dunaway is a 59 y.o. male who presents to the Infectious Disease clinic today for a followup visit. 1. Fevers: Mr. Dunaway and his report resolution of fevers. Discussed that would recommend to continue to monitor at this time, and if fevers recur, to reach out to our clinic at that time for further evaluation. If fevers recur, will likely plan for antibiotics therapy for Q fever as well as pelvic abscess with CT abdomen/pelvis for further evaluation. 2. Positive Q fever serology 3. Left hemipelvic mass 4. 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 Immunocompromised 6. UC and sigmoid cancer s/p total proctocolectomy and loop ileostomy in 2020 and underwent ileostomy closure in May 2021 7. Estimated Creatinine Clearance: 47 mL/min (by C-G formula based on SCr of 1.12 mg/dL). Follow up in ID clinic as needed. Analisa Donovan MD International Trade Teacher - Clinical Division of Infectious Diseases Pager #[phone] * Jessica Kenney MA - 09/21/2024 1:00 PM EDT Patient has verified full name and . documented in [facility] History of Present illness Narrative* Babs Marley MD - 08/22/2024 2:40 PM EDT OLT Note: HEPATOLOGY OUTPATIENT NOTE PRIMARY CARE PHYSICIAN: Olive Valera HEPATOLOGY/GI DIAGNOSIS: S/p DCD OLT 05/25/2024 (D+/R-) for PSC cirrhosis with Janay-en-Y choledochojejunostomy Post-op course c/b exlap 06/03 with bile leak at choledocho-j, and bowel obstruction at site of previous J-pouch; cultures with ESBL E. coli. ? Q fever on doxycycline- AB+, PCR negative OTHER MEDICAL DIAGNOSIS: UC, colon cancer s/p colectomy / IPAA Perirectal inflammatory mass REASON FOR VISIT: Management of post OLT care and management of immunosuppression HISTORY OF PRESENT ILLNESS: cJ Dunaway is a 59 y.o. with DCD OLT 05/25/2024 (D+/R-) for PSC cirrhosis with Janay-en-Y choledochojejunostomy , complicated post LT course, UC with Colon cancer s.p IPAA, comes to clinic for a FUV I have reviewed the medical, surgical, and social history and have updated medication and allergy information in the computerized patient record. Done well since the hospital discharge. No more fevers. No more abdominal pain. Taking all meds Still c/o hemorrhoids. Today in clinic the patients denies diarrhea, hair loss, skin rashes, fatigue, jaundice, confusion,weakness. Current IS : Tacrolimus 4 mg BID (trough 8.5 on 08/15/24 ), Cellcept 500 mg bid, prednisone 5 mg daily REVIEW OF SYSTEMS: Constitutional: no fevers, no chills, no weakness. HEENT: no blurring of vision, no diplopia. Respiratory: no sob, no wheezing, no cough. Cardiovascular: no chest pain, no PND/orthopnea, no edema Gastrointestinal: no diarrhea, no abdominal pain, no nausea, no vomiting. Genitourinary: no dysuria Musculoskeletal: no joint pain, ROM not limited. Neurological: no headache, no focal deficits. Psychiatry: no anxiety, no depression. All other systems were reviewed and were negative. ALLERGIES: No Known Allergies HOME MEDICATIONS: Current Outpatient Medications Medication Instructions aspirin (ASPIRIN LOW DOSE) 81 mg, Oral, DAILY Calcium Carbonate-Vitamin D (CALCIUM-CARB 600 + D PO) 1 tablet, DAILY Doxycycline monohydrate (MONODOX) 100 mg, Oral, EVERY 12 HOURS Entecavir (BARACLUDE) 0.5 mg, Oral, DAILY Fiber-Lax 625 mg, Oral, DAILY Loperamide (IMODIUM) 2 mg, Oral, 4 TIMES DAILY NEEDED Mycophenolate mofetil (CELLCEPT) 500 mg, Oral, EVERY 12 HOURS NON-STANDARD predniSONE (DELTASONE) 5 mg, Oral, DAILY Sulfamethoxazole-trimethoprim 800-160 MG per tablet 1 tablet, Oral, EVERY 24 HOURS Tacrolimus (PROGRAF) 4 mg, Oral, EVERY 12 HOURS ursodiol (ACTIGALL) 600 mg, Oral, 2 TIMES DAILY valGANciclovir (VALCYTE) 450 mg, Oral, 2 TIMES DAILY witch kentrell-glycerin Pads Apply topically to the affected area 4 times daily as needed for Itching or anorectal pain SOCIAL HISTORY: Social Situation: lives with at home. 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 They will take over farm Tobacco: none Alcohol: none Illicit's: none FAMILY HISTORY: No history of Liver, GI malignancy in first degree family member, no history of IBD Physical Examination: Measurements: BP 130/75 (BP Location: Right arm, BP Position: Sitting) Pulse 85 Temp 97.7 F (36.5 C) (Temporal) Ht 1.676 m (5' 6) Wt 47.7 kg (105 lb 1.6 oz) BMI 16.96 kg/m Smoking Status Never General: The patient is in no acute distress. frail Eyes: Sclera anicteric. ENT: No oral lesions. Skin: No rash or jaundice, Respiratory: Lungs clear to auscultation. Cardiovascular: Regular rate, no murmurs, no edema b/l. Abdomen: Soft, Scar+, non-tender, liver , spleen not palpable, no ascites. Extremities: No muscle wasting, no gross arthritic changes. Neurologic: Alert and oriented, cranial nerves grossly intact LABS Lab Results Component Value Date WBC 3.4 08/18/2024 HGB 10.2 08/18/2024 HCT 31.7 08/18/2024 MCV 98.8 (H) 08/09/2024 Lab Results Component Value Date GLUCOSE 97 08/18/2024 CALCIUM 9.5 08/18/2024 CO2 25.6 08/18/2024 BUN 22 08/18/2024 Lab Results Component Value Date INR 1.1 08/01/2024 INR 1.1 06/10/2024 INR 1.1 06/09/2024 Lab Results Component Value Date ALT 43 08/18/2024 AST 30 08/18/2024 GGT 168 08/15/2024 ALKPHOS 307 08/18/2024 Lab Results Component Value Date TACROLIMUS 5.9 08/09/2024 IMAGING: MRI 07/2024: IMPRESSION: 1. Changes from liver transplant and choledochojejunostomy with mild to moderate biliary dilation which could be secondary to narrowing/stricture at the choledochojejunostomy. ENDOSCOPY REPORTS/PATHOLOGY REPORTS: FSS 07/2024: Findings: Patient is status-post total colectomy with an ileal pouch-anal anastomosis. The j-pouch appeared normal. Biopsies were taken with a cold forceps for histology. The pre-pouch ileum contained one sessile, non-bleeding polyp. The polyp was 2 mm in diameter. The polyp was removed with a cold biopsy forceps. Resection and retrieval were complete. Impression: - The j-pouch is normal, healthy. Biopsied to exclude microscopic inflammation or opportunistic infections - One polyp in the pre-pouch ileum, removed with a cold biopsy forceps. Resected and retrieved. ASSESSMENT/PLAN: Jc Dunaway is a 59 y.o. 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 Status post OLT on 05/25/2024: - Etiology for CLD: PSC - CMV status: D+ /R+, EBV IgG D /R , HBcAb: D / R - Graft functions appear to be within normal limits. - Immunosuppressive medication regimen: - Tacrolimus 4 mg BID (trough 8.5 on 08/15/24 ), Cellcept 500 mg bid, prednisone 5 mg daily - Will reduce pred to 2.5 mg - Will check labs taper protocol -CBC,BMP,Hepatic panel, Pt/INR, CNI trough - HAT prophylaxis: ASA 81 mg - Infections prophylaxis: - PJP: Bactrim DS - CMV: Valgancyclovir to complete 08/25/24 - Explant pathology with no HCC 2. UC: - Will establish with GI next month Post LT preventative care: - Dermatology: needs to establisj - Lipids/Dyslipidemia: per protocol - HbA1c:per protocol - CKD: Albumin/Protein ration- ; UA- - DEXA: Address at 2 year [place] post OLT - Immunization: - Immunization History Administered Date(s) Administered [id number] COVID-19 monovalent vaccine, mRNA, Pfizer, 0.3 ML 05/23/2020, 06/13/2020 - COVID:as above - PCV13/PPV23: needs - Hep A/ Hep B:needs - Flu:defer - Colonoscopy/FSS:uptodate Babs Marley M.D. International Trade Teacher of Clinical Medicine Gastroenterology, Hepatology, and Nutrition Pager :[phone] * Kamilah Fernández RN - 08/22/2024 2:40 PM EDT Images from the original note were not included. PREP SHEET FOR LIVER SURGERY & TRANSPLANT HEPATOLOGY CLINIC Patient Name: Jc Dunaway ([id number]) Pump Installation And Servicer: Shanell Helms Transplant Field Aide: Babs Marley IMMUNOSUPPRESSION & LAB INFORMATION On Prednisone? yes 5mg/day Current Immunosuppressive Medication(s) Immunosuppressive Agents Mycophenolate mofetil (CELLCEPT) 250 MG capsule Take 2 capsules by mouth every 12 hours. Tacrolimus (PROGRAF) 1 MG capsule Take 4 capsules by mouth every 12 hours. Current lab frequency ordered: Twice a week Labs needed in clinic today? No (if a K/L please review Nephrology protocol for 1st year lab schedule) New standing lab order needed? TBD - OK to decrease to weekly labs? I can make a new lab order - let me know. Preferred lab: [facility] - [address] - [place] [address] [facility] [facility] [id number] COORDINATOR NOTES FOR APPOINTMENT: - Transition to Hepatology appt - OK to supervisor policy change clerks to Kamilha Munson once seen in clinic. - Discontinue Valcyte right around 08/25/24? - Lab results from 08/18/24: Creat 0.91, Tac is pending - Tac was 8.5 on 08/15/24 - Per DC Summary on 08/09/24: he was found to be positive for Q fever -Fever phase 1 igG - negative ; Fever Phase 2 igG - 1:32 (antibodies detected). He will discharge on Doxycycline x 14 days 08/08-08/23 - with plan on repeat Q fever antibody in 4 weeks (ordered as internal lab through [facility]) - to be followed up by Dr. Odell with Transplant ID to determine if patient needs to be seen outpatient follow up. His fevers and diarrhea are associated with the Positive Q fever. - 05/25/2024: DDLT with janay-en-y choledochojejunostomy - 06/03/2024: ex lap, small bowel pelvic adhesion and partial dehiscence of CDJ; revision of choledochojejunostomy INFORMATION ON TRANSPLANTED ORGAN COMMENTS Type of Transplant: Liver Date of Transplant: 05/25/2024 Time elapsed since transplant: 17 day(s) Primary Disease: Primary Sclerosing Cholangitis: Ulcerative Colitis Donor Type: Donation after Circulatory Induction Therapy Used: Steroid Taper Risk Criteria Present: yes [place] Protocol Labs First set due AFTER: 06/22/2024 and BEFORE: 07/20/2024 Date 1st set of protocol labs completed: 06/23/24 Second set due AFTER 04/25/2025 and BEFORE: 06/24/2025 Date 2nd set of protocol labs completed: DIALYSIS CVC / OTHER LINES OR DRAINS PRESENT AT DISCHARGE Type: PICC Location: Right arm Date removed: 06/24/24 CMV & EBV SEROLOGIES AND FOLLOW UP COMMENTS CMV IgG Donor / Recipient: Donor: Positive Recipient: Lab Results Component Value Date CMVIGG Negative 05/25/2024 Lab monitoring at this time: no On an anti-viral? yes Dose: Valcyte 450mg BID Date to discontinue: 08/25/2024 EBV IgG Donor / Recipient Donor: Positive Recipient: Lab Results Component Value Date EBVVCAIGG Positive (A) 05/25/2024 Lab monitoring required: no FOLLOW UP FOR HCV AND HBV DONORS COMMENTS Hepatitis C+/MYLA- donor? no Lab monitoring required: no Hepatitis C+/MYLA+ donor? no Patient w/history of HBV or Donor HBV core +? yes (donor) Anti-viral prescribed: Entecavir Current dose: 0.5mg Daily HBV DNA & sAg due Q6 months Most recent results: DUE: October 2024 INTERMEDIATE IMAGING & PROCEDURE FOLLOW UP COMMENTS History of HCC: No Biliary Stent or drain: no Date of last procedure: N/A Next procedure due: N/A * Shaila Payne RN - 08/22/2024 2:40 PM EDT Images from the original note were not included. Nursing Assessment In Clinic Patient is accompanied to clinic today by: family Did patient require a wheelchair or medical transport for appointment: no Is patient employed: yes (Needed for [employer] forms) VITALS BP Readings from Last 3 Encounters: 08/22/24 130/75 08/09/24 118/72 07/04/24 128/81 Pulse Readings from Last 3 Encounters: 08/22/24 85 08/09/24 80 07/04/24 94 Wt Readings from Last 6 Encounters: 08/22/24 47.7 kg (105 lb 1.6 oz) 08/09/24 47.7 kg (105 lb 1.6 oz) 07/04/24 45.5 kg (100 lb 4.8 oz) 06/20/24 44 kg (97 lb 1.6 oz) 06/15/24 43.7 kg (96 lb 6.4 oz) 06/13/24 42.7 kg (94 lb 1.6 oz) Body mass index is 16.96 kg/m . Lab Results Component Value Date GLUCOSE 97 08/18/2024 Lab Results Component Value Date HGBA1C 5.2 05/25/2024 IMMUNOSUPPRESSION Current Immunosuppressive Medication(s) Immunosuppressive Agents Mycophenolate mofetil (CELLCEPT) 250 MG capsule Take 2 capsules by mouth every 12 hours. Tacrolimus (PROGRAF) 1 MG capsule Take 4 capsules by mouth every 12 hours. PREFERRED LAB AND PHARMACY: [facility] - [address] [place] [address]. - [address] [address] [id number] [place] [phone] [facility] [phone] [facility]. [facility] [address] [facility] [address] [facility], [address] [place] [address] ROS and SCREEN: Chest Pain: negative Cough: negative SOB: negative Abd Pain: negative Nausea: negative Vomiting: negative Diarrhea: positive - 3-4 times daily Constipation: negative Dysuria: negative Edema: negative Tremors: negative Headaches: negative Wound issues: negative Have a Primary Care provider? yes Been seen in the last 12 months? yes Alcohol consumption?: no Cigarette smoking, smokeless tobacco or vaping/e-cigarette use?: no Marijuana (any form), CBD oil or street drug use?: no QUESTIONS OR CONCERNS TO ADDRESS WITH PHYSICIAN: - hemorrhoids documented in this [facility]06-23-2025 Instructions* Patient Instructions* Shaila Payne RN - 08/22/2024 2:40 PM EDT - Stop Vaganciclovir (Valcyte) 08/25/24 - Decrease Prednisone to 2.5 mg (1 tab) daily - new script sent for 2.5 mg tabs - Refills sent on Polycarbophil - follow up with GI specialist for future refills - Labs once a week - new lab letter provided - Please make sure to have Q fever lab drawn the week of September 05. A paper copy of the order was provided but if this cannot be drawn locally you will need to come to [facility] to have completed. - Your coordinator is now Kamilah Munson - Follow up with Gastroenterology (scheduled 09/21/24) - Return to clinic 10/10/2024 TRANSPLANT HEPATOLOGY 5, [facility] as scheduled [facility] note * Diagnosis Onset Date Resolution Status Admit Date Cancer of sigmoid colon chronic J 2024 9:04am Iron deficiency anemia due t o chronic blood loss chronic August 17 9:04am [facility] Work Phone: 1(433) 553-990906-18-2025 [facility] [address] [place] [address] OFFICE VISIT Date of Service: 08/17/24904 MR#: [id number] Acct: [id number] Name: JC DUNAWAY Rep #: [id number] : 1965 From: Robe benavides MD Age/Sex: 59/M [place] [facility] [place] Status: Signed HPI Subjective Date of Service 08/17/24 Chief Complaint Colon cancer and iron deficiency anemia History of Present Illness 59 YOM with Ulcerative Colitis > 30 years (since ) who has not been on regular screening cor colon cancer who presented with ~ 10 Lb unexplained sedrick loss. 11/28/2020 Colonoscopy: Findings: ?? ? The perianal and digital rectal examinations were normal. ?? ? Inflammation characterized by erosions, erythema, linear erosions, loss ?? ? of vascularity, mucus, scarring and deep ulcerations was found in a ?? ? continuous and circumferential pattern from the anus to the hepatic ?? ? flexure. No sites were spared. This was severe, and when compared to ?? ? previous examinations, the findings are worsened. Biopsies were taken ?? ? with a cold forceps for histology. Verification of patient ?? ? identification for the specimen was done. Estimated blood loss was ?? ? minimal. ?? ? A frond-like/villous non-obstructing large mass was found in the distal ?? ? descending colon. The mass was partially circumferential (involving ?? ? two-thirds of the lumen circumference). The mass measured one cm in ?? ? length. No bleeding was present. This was biopsied with a cold forceps ?? ? for histology. Area was tattooed with an injection of 5 mL of Pippa ink. ?? ? The terminal ileum appeared normal. Impression:? - Pancolitis ulcerative colitis. Inflammation ? was found from the anus to the hepatic flexure. ? This was severe, worsened compared to previous ? examinations. Biopsied. ? - Rule out malignancy, tumor in the distal ? descending colon. Biopsied. Tattooed. ? - The examined portion of the ileum was normal. ? - Diffuse severe inflammation was found in the ? rectum secondary to pancolitis. Biopsied. Pathology: MICROSCOPIC DIAGNOSISA.? Duodenum, biopsy:Mild Samy?s gland hyperplasia.B.? Distal esophagus, biopsy:Gastroesophageal junctional mucosa with chronic inflammation.No evidence of goblet cell metaplasia.See comment. C.? Colon, random biopsy:Chronic active colitis pattern of injury with low and focal high- grade glandular dysplasia.D.? Sigmoid colon mass, biopsy:Invasive adenocarcinoma.See comment.E.? Rectosigmoid colon, biopsy:Tubular adenoma MLH-1 (M1)positiveMSH2? (25D12)positiveMSH6? (44)positivePMS2? (KSD1961)positiveKi-67? (30-9)? positive (75%)P53? (DO-7)? ? ? positiveCOX-2? (SP21) ? ? ? positiveThese tests were developed and their performance characteristics determined by [facility].? They may not have been cleared or approved by the U.S. Food and Drug Administration.? The FDA has determined that such clearance or approval is not necessary.The above immunohistochemical/dualISH markers are ordered and reviewed by the Pathologist. INTERPRETATION:D.? Sigmoid mass, biopsy:Adenocarcinoma.Resultof Microsatellite Instability Study:Negative (no loss of mismatch protein; no microsatellite instability detected).AM:robbie? 12/03/2020 12/28/2020 CT Chest, abdomen and pelvis: IMPRESSION: Diffuse circumferential wall thickening of the colon with the patient''s history of ulcerative colitis.? Masslike lesion in the cecum and proximal ascending colon.? The patient is known to have a neoplastic process at that site. February 12, 2021:?Laparoscopic total proctocolectomy with ileal pouch creation and stapled IPAA, diverting loop ileostomy and flexible sigmoidoscopy. February 12, 2021 pathology:?2 invasive adenocarcinomas, moderately differentiated, invading submucosa, background colonic mucosa with marked ulcerative colitis and multifocal low-grade dysplasia, negative margins, inflammation extends to the distal margin, fibrotic appendix, unremarkable smallbowel, 118 6 lymph nodes dissected all negative for metastatic cancer.? Mismatchrepair protein intact. June 04, 2021:?Loop ileostomy closure. September 30, 2022 CT chest abdomen and pelvis: Obtained because of abnormal LFTs. FINDINGS: CHEST Stable scarring at the lung apices likely worse on the right side. There is no demonstrated pleural abnormality. Normal heart and pericardium. No coronary artery calcification. Normal mediastinum. Normal hilar regions. Normal unenhanced pulmonary arteries. Normal aorta arch and descending thoracic aorta. There are degenerative changes of the thoracic spine. There is no demonstrated abnormality of the visualized upper abdomen. ABDOMEN The visualized lung bases are unremarkable. The visualized portions of the heart are within normal limits. Normal liver. Normal gallbladder and extrahepatic biliary system. Normal spleen. Normal pancreas. Normal bilateral adrenal glands. Normal right kidney. Normal left kidney. Normal visualized stomach. The previously seen right-sided ileostomy is not visualized at this time. The patient is status post ileal rectal anastomosis. There is non-visualization of the appendix. There is scattered atherosclerotic calcification of the abdominal aorta, without a demonstrated aneurysm. Normal inferior vena cava. Normal retroperitoneum. Normal abdominal wall. There are degenerative changes of the visualized lumbar spine. PELVIS Normal urinary bladder. Normal visualized small intestine. Normal visualized colon. There is no pelvic fluid. There is no pelvic lymphadenopathy or mass lesion. Normal visualized pelvic arteries. IMPRESSION: Status post ileorectal anastomosis. The previously seen right lower quadrant ileostomy is not seen at this time. [facility] Medical History Hemorrhoids History of steroid therapy Low iron Easy bruising History of stress test Elevated LFTs Iron deficiency anemia due to chronic blood loss History of colon cancer Injury of head and neck Non-smoker Hx of fracture of left hip Weight loss Ulcerative colitis Surgical History (Updated 08/17/24 @ 09:12 by Jennifer Bhatt) Liver transplant status History of esophagogastroduodenoscopy (EGD) History of ileostomy History of colon resection Hx of colonoscopy Social History household members: spouse Smoking Status: Never smoker second hand exposure: No details: very rarely substance use type: does not use cruz/nondenominational: Restoration seatbelt use: always do you feel safe at home: Yes ROS ROS Narrative Still recovering from liver transplant April 2024, has not returned to work yet Constitutional Constitutional: Reports systems reviewed and no addt'l complaints, except as documented and fatigue Eyes Eyes: Reports systems reviewed and no addt'l complaints, except as documented ENT HEENT: Reports systems reviewed and no addt'l complaints, except as documented Cardiovascular Cardiovascular: Reports systems reviewed and no addt'l complaints, except as documented Respiratory/Chest Respiratory/Chest: Reports systems reviewed and no addt'l complaints, except as documented Gastrointestinal Gastrointestinal: Reports systems reviewed and no addt'l complaints, except as documented; Denies change in bowel habits, hematochezia or melena Genitourinary Genitourinary: Reports systems reviewed and no addt'l complaints, except as documented Musculoskeletal Musculoskeletal: Reports systems reviewed and no addt'l complaints, except as documented Integumentary Integumentary: Reports systems reviewed and no addt'l complaints, except as documented Neurologic Neurologic: Reports systems reviewed and no addt'l complaints, except as documented Psychiatric Psychiatric: Reports systems reviewed and no addt'l complaints, except as documented Endocrine Endocrinology: Reports systems reviewed and no addt'l complaints, except as documented Hematologic/Lymphatic Hematologic/Lymphatic: Reports systems reviewed and no addt'l complaints, exceptas documented Allergic/Immunologic Allergic/Immunologic: Reports systems reviewed and no addt'l complaints, except as documented Intake Vital Signs 02/18/24 13:10 05/03/24 08:56 08/17/24 09:06 Height 5 ft 6 in 5 ft 6 in 5 ft 6 in Weight: 48.534 kg BMI 17.2 BP 101/65 Blood Pressure Location Rt brachial Position Sitting Respiration 16 Pulse 89 Pulse Source Monitor Temp 98.1 F Temperature Source Temporal Artery Pulse Oximetry (%) 96 Oxygen Delivery Method room air Intake Perianesthesia Manager Required: No Accompanied by: Self Is patient in pain?: No Allergies No Known Allergies Allergy (Verified 08/17/24 09:07) Medications ?Medication ?Instructions ?Recorded ?Confirmed ?Type ursodiol 250 mg tablet 250 mg PO BID #60 TABLETS 08/17/24 Rx aspirin 81 mg chewable tablet 1 tab PO QDAY 08/17/24 0 08/17/24 History calcium 600 mg (as 1 tab PO QDAY 08/17/2408/17 History carbonate)-vitamin D3 10 mcg (400 unit) tablet calcium polycarbophil 625 mg tablet 625 mg PO QDAY 08/17/24 History doxycycline monohydrate 100 mg 100 mg PO BID 08/17/24 08/17/24 History capsule entecavir 0.5 mg tablet 0.5 mg PO QDAY 08/17/2407/31 History glycerin-witch kentrell 12.5 %-50 % 1 pad topical 4XD PRN 08/17/24 08/17/24 History topical pads loperamide 2 mg capsule 2 mg PO Q6H PRN 08/17/24 History (Anti-Diarrheal (loperamide)) mycophenolate mofetil 250 mg 500 mg PO BID 08/17/24 History capsule prednisone 5 mg tablet 5 mg PO QDAY 08/17/24 History sulfamethoxazole 800 1 tab PO QDAY 08/17/2408/17 History mg-trimethoprim 160 mg tablet tacrolimus 1 mg capsule, 3 mg PO Q12H 08/17/24 History immediate-release valganciclovir 450 mg tablet 450 mg PO Q12H 08/17/24 0 08/17/24 History Central Venous Access Central Venous Access: No Laboratory Tests 12/07/20 12/31/20 02/18/21 11:04 12:35 07:16 WBC 10.3 Hgb 11.0 L 9.2 L MCV 86.0 Plt Count 682 H Iron Saturation 6.2 L Ferritin 8 L Total Bilirubin 0.30 0.90 Direct Bilirubin AST 54 H ALT 38 Alkaline Phosphatase 581 H Carcinoembryonic Ag 2.4 Vitamin B12 882 03/13/21 06/17/21 09/10/21 11:55 15:03 15:00 WBC 6.5 Hgb 8.8 L 11.9 L 11.9 L MCV Plt Count Iron Saturation 9.5 L 6.2 L 15.8 Ferritin 8 L 561 H 73 Total Bilirubin 0.60 Direct Bilirubin AST ALT Alkaline Phosphatase Carcinoembryonic Ag 2.0 1.4 2.9 Vitamin B12 663 12/13/21 03/19/22 06/10/22 16:00 09:20 11:25 WBC Hgb 11.5 L 12.1 L 12.6 L MCV Plt Count Iron Saturation 36.8 10.4 L 96.9 H Ferritin 37 22 L 689 H Total Bilirubin Direct Bilirubin AST ALT Alkaline Phosphatase Carcinoembryonic Ag 2.8 3.4 3.8 Vitamin B12 561 09/09/22 10/07/22 01/06/23 15:48 13:25 13:39 WBC Hgb 10.7 L 11.7 L MCV Plt Count Iron Saturation 31.5 26.8 Ferritin 315 163 Total Bilirubin 2.80 H 2.00 H Direct Bilirubin 1.58 H AST 115 H ALT 94 H Alkaline Phosphatase 814 H Carcinoembryonic Ag 3.5 3.1 Vitamin B12 03/31/23 05/14/23 09/24/23 11:43 14:07 09:32 WBC Hgb 11.1 L 11.3 L 12.7 L MCV Plt Count Iron Saturation 24.8 34.8 Ferritin 99 58 105 Total Bilirubin Direct Bilirubin AST ALT Alkaline Phosphatase Carcinoembryonic Ag 2.9 3.1 3.6 Vitamin B12 721 11/18/23 02/11/24 08/11/24 17:01 14:40 09:03 WBC Hgb 12.2 L MCV Plt Count Iron Saturation 23.8 18.0 Ferritin 92 226 Total Bilirubin Direct Bilirubin AST ALT Alkaline Phosphatase Carcinoembryonic Ag 3.3 1.7 Vitamin B12 1699 H 08/15/24 08:49 WBC Hgb 10.7 L MCV Plt Count Iron Saturation Ferritin Total Bilirubin Direct Bilirubin AST ALT Alkaline Phosphatase Carcinoembryonic Ag Vitamin B12 Exam Physical Exam Const alert, oriented x3 and no apparent distress General Appearance: frail Nutritional Appearance: thin Coding Level of Care Code Off vis,est,level 3 Exam Problem Focused Diagnoses Cancer of sigmoid colon C18.7 Iron deficiency anemia due to chronic blood loss D50.0 Assessment and Plan Assessment and Plan (1) Cancer of sigmoid colon: Status: Chronic (2) Iron deficiency anemia due to chronic blood loss: Status: Chronic Plan 59 YOM with 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 Patient is status post total proctocolectomy January 2021 at [facility] byDr. Johnson. Cancerstage II with no yakov metastases. He's a normocytic anemia and intermittent thrombocytosis. Anemia combination ofiron deficiency due to chronic GI bleed, and chronic inflammatory disease . Thrombocytosis most likely reactive and resolved after correction of iron deficiency. Chronic comorbid conditions: Status post liver transplant (April 2024, chronic diarrhea post proctocolectomy. Plan: 1-continue surveillance. Follow-up every 4 months (4th year of surveillance) with H&P and CEA measurement. 2-For iron deficiency anemia advised IV iron rather than oral iron and lieu of the extensive bowel resection on an as-needed basis guided by blood work. Following a loading dose of Injectafer in August2022 he has no residual iron deficiency. We will continue watchful 3-he has no evidence for B12 deficiency at present but he is at risk for, will be monitored on an annual basis. 4-Screening colonoscopy at [facility], last was in 2024. Robe Zavala MD International Trade Teacher, [facility] Divisions of Medical Oncology & Hematology Department of Internal Medicine [place] [phone] This note was generated using a voice recognition system software. Although itwas reviewed by the author prior to finalization, it may still contain incorrectwords, spelling, and punctuation that were not noted when reviewing prior to saving. If a clinically significant typo or inaccurately typed phrase is noted, please notify the author. 08/17/24 0931 clarissa MILIAN> Date _ Robe Zavala MD Cosigner Signature: Date (if applicable) CC: Dr. Olive Valera MD ~ [facility] [place]06-18-2025 Progress note Author Robe Zavala [facility] [place] Note Date/Time August 17, 2024 9:31 am [facility] [place] [address] OFFICE VISIT Date of Service: 08/17/2405 MR#: [id number] Acct: [id number] Name: JC DUNAWAY Rep #: [id number] : 1965 From: Robe benavides MD Age/Sex: 59/M [place] [facility] [place] Status: Signed HPI Subjective Date of Service 08/17/24 Chief Complaint Colon cancer and iron deficiency anemia History of Present Illness 59 YOM with Ulcerative Colitis > 30 years (since ) who has not been on regular screening cor colon cancer who presented with ~ 10 Lb unexplained sedrick loss. 11/28/2020 Colonoscopy: Findings: ?? ? The perianal and digital rectal examinations were normal. ?? ? Inflammation characterized by erosions, erythema, linear erosions, loss ?? ? of vascularity, mucus, scarring and deep ulcerations was found in a ?? ? continuous and circumferential pattern from the anus to the hepatic ?? ? flexure. No sites were spared. This was severe, and when compared to ?? ? previous examinations, the findings are worsened. Biopsies were taken ?? ? with a cold forceps for histology. Verification of patient ?? ? identification for the specimen was done. Estimated blood loss was ?? ? minimal. ?? ? A frond-like/villous non-obstructing large mass was found in the distal ?? ? descending colon. The mass was partially circumferential (involving ?? ? two-thirds of the lumen circumference). The mass measured one cm in ?? ? length. No bleeding was present. This was biopsied with a cold forceps ?? ? for histology. Area was tattooed with an injection of 5 mL of Pippa ink. ?? ? The terminal ileum appeared normal. Impression:? - Pancolitis ulcerative colitis. Inflammation ? was found from the anus to the hepatic flexure. ? This was severe, worsened compared to previous ? examinations. Biopsied. ? - Rule out malignancy, tumor in the distal ? descending colon. Biopsied. Tattooed. ? - The examined portion of the ileum was normal. ? - Diffuse severe inflammation was found in the ? rectum secondary to pancolitis. Biopsied. Pathology: MICROSCOPIC DIAGNOSISA.? Duodenum, biopsy:Mild Samy?s gland hyperplasia.B.? Distal esophagus, biopsy:Gastroesophageal junctional mucosa with chronic inflammation.No evidence of goblet cell metaplasia.See comment. C.? Colon, random biopsy:Chronic active colitis pattern of injury with low and focal high-grade glandular dysplasia.D.? Sigmoid colon mass, biopsy:Invasive adenocarcinoma.See comment.E.? Rectosigmoid colon, biopsy:Tubular adenoma MLH-1 (M1)positiveMSH2? (25D12)positiveMSH6? (44)positivePMS2? (ECT5610)positiveKi-67? (30-9)? positive (75%)P53? (DO-7)? ? ? positiveCOX-2? (SP21) ? ? ? positiveThese tests were developed and their performance characteristics determined by [facility].? They may not have been cleared or approved by the U.S. Food and Drug Administration.? The FDA has determined that such clearance or approval is not necessary.The above immunohistochemical/dualISH markers are ordered and reviewed by the Pathologist. INTERPRETATION:D.? Sigmoid mass, biopsy:Adenocarcinoma.Result of Microsatellite Instability Study:Negative (no loss of mismatch protein; no microsatellite instability detected).AM:robbie? 12/03/2020 12/28/2020 CT Chest, abdomen and pelvis: IMPRESSION: Diffuse circumferential wall thickening of the colon with the patient''s history of ulcerative colitis.? Masslike lesion in the cecum and proximal ascending colon.? The patient is known to have a neoplastic process at that site. February 12, 2021:?Laparoscopic total proctocolectomy with ileal pouch creation and stapled IPAA, diverting loop ileostomy and flexible sigmoidoscopy. February 12, 2021 pathology:?2 invasive adenocarcinomas, moderately differentiated, invading submucosa, background colonic mucosa with marked ulcerative colitis and multifocal low-grade dysplasia, negative margins, inflammation extends to the distal margin, fibrotic appendix, unremarkable smallbowel, 118 6 lymph nodes dissected all negative for metastatic cancer.? Mismatchrepair protein intact. June 04, 2021:?Loop ileostomy closure. September 30, 2022 CT chest abdomen and pelvis: Obtained because of abnormal LFTs. FINDINGS: CHEST Stable scarring at the lung apices likely worse on the right side. There is no demonstrated pleural abnormality. Normal heart and pericardium. No coronary artery calcification. Normal mediastinum. Normal hilar regions. Normal unenhanced pulmonary arteries. Normal aorta arch and descending thoracic aorta. There are degenerative changes of the thoracic spine. There is no demonstrated abnormality of the visualized upper abdomen. ABDOMEN The visualized lung bases are unremarkable. The visualized portions of the heart are within normal limits. Normal liver. Normal gallbladder and extrahepatic biliary system. Normal spleen. Normal pancreas. Normal bilateral adrenal glands. Normal right kidney. Normal left kidney. Normal visualized stomach. The previously seen right-sided ileostomy is not visualized at this time. The patient is status post ileal rectal anastomosis. There is non-visualization of the appendix. There is scattered atherosclerotic calcification of the abdominal aorta, without a demonstrated aneurysm. Normal inferior vena cava. Normal retroperitoneum. Normal abdominal wall. There are degenerative changes of the visualized lumbar spine. PELVIS Normal urinary bladder. Normal visualized small intestine. Normal visualized colon. There is no pelvic fluid. There is no pelvic lymphadenopathy or mass lesion. Normal visualized pelvic arteries. IMPRESSION: Status post ileorectal anastomosis. The previously seen right lower quadrant ileostomy is not seen at this time. [facility] Medical History Hemorrhoids History of steroid therapy Low iron Easy bruising History of stress test Elevated LFTs Iron deficiency anemia due to chronic blood loss History of colon cancer Injury of head and neck Non-smoker Hx of fracture of left hip Weight loss Ulcerative colitis Surgical History (Updated 08/17/24 @ 09:12 by Jennifer Bhatt) Liver transplant status History of esophagogastroduodenoscopy (EGD) History of ileostomy History of colon resection Hx of colonoscopy Social History household members: spouse Smoking Status: Never smoker second hand exposure: No details: very rarely substance use type: does not use cruz/nondenominational: Restoration seatbelt use: always do you feel safe at home: Yes JEANNETTE Hyatt Still recovering from liver transplant April 2024, has not returned to work yet Constitutional Constitutional: Reports systems reviewed and no addt'l complaints, except as documented and fatigue Eyes Eyes: Reports systems reviewed and no addt'l complaints, except as documented ENT HEENT: Reports systems reviewed and no addt'l complaints, except as documented Cardiovascular Cardiovascular: Reports systems reviewed and no addt'l complaints, except as documented Respiratory/Chest Respiratory/Chest: Reports systems reviewed and no addt'l complaints, except as documented Gastrointestinal Gastrointestinal: Reports systems reviewed and no addt'l complaints, except as documented; Denies change in bowel habits, hematochezia or melena Genitourinary Genitourinary: Reports systems reviewed and no addt'l complaints, except as documented Musculoskeletal Musculoskeletal: Reports systems reviewed and no addt'l complaints, except as documented Integumentary Integumentary: Reports systems reviewed and no addt'l complaints, except as documented Neurologic Neurologic: Reports systems reviewed and no addt'l complaints, except as documented Psychiatric Psychiatric: Reports systems reviewed and no addt'l complaints, except as documented Endocrine Endocrinology: Reports systems reviewed and no addt'l complaints, except as documented Hematologic/Lymphatic Hematologic/Lymphatic: Reports systems reviewed and no addt'l complaints, exceptas documented Allergic/Immunologic Allergic/Immunologic: Reports systems reviewed and no addt'l complaints, except as documented Intake Vital Signs 02/18/24 13:10 05/03/24 08:56 08/17/24 09:06 Height 5 ft 6 in 5 ft 6 in 5 ft 6 in Weight: 48.534 kg BMI 17.2 BP 101/65 Blood Pressure Location Rt brachial Position Sitting Respiration 16 Pulse 89 Pulse Source Monitor Temp 98.1 F Temperature Source Temporal Artery Pulse Oximetry (%) 96 Oxygen Delivery Method room air Intake Perianesthesia Manager Required: No Accompanied by: Self Is patient in pain?: No Allergies No Known Allergies Allergy (Verified 08/17/24 09:07) Medications ?Medication ?Instructions ?Recorded ?Confirmed ?Type ursodiol 250 mg tablet 250 mg PO BID #60 TABLETS 08/17/24 Rx aspirin 81 mg chewable tablet 1 tab PO QDAY 08/17/24 0 08/17/24 History calcium 600 mg (as 1 tab PO QDAY 08/17/2408/17 History carbonate)-vitamin D3 10 mcg (400 unit) tablet calcium polycarbophil 625 mg tablet 625 mg PO QDAY 08/17/24 History doxycycline monohydrate 100 mg 100 mg PO BID 08/17/24 08/17/24 History capsule entecavir 0.5 mg tablet 0.5 mg PO QDAY 08/17/2407/31 History glycerin-witch kentrell 12.5 %-50 % 1 pad topical 4XD PRN 08/17/24 08/17/24 History topical pads loperamide 2 mg capsule 2 mg PO Q6H PRN 08/17/24 History (Anti-Diarrheal (loperamide)) mycophenolate mofetil 250 mg 500 mg PO BID 08/17/24 History capsule prednisone 5 mg tablet 5 mg PO QDAY 08/17/24 History sulfamethoxazole 800 1 tab PO QDAY 08/17/2408/17 History mg-trimethoprim 160 mg tablet tacrolimus 1 mg capsule, 3 mg PO Q12H 08/17/24 History immediate-release valganciclovir 450 mg tablet 450 mg PO Q12H 08/17/24 0 08/17/24 History Central Venous Access Central Venous Access: No Laboratory Tests 12/07/20 12/31/20 02/18/21 11:04 12:35 07:16 WBC 10.3 Hgb 11.0 L 9.2 L MCV 86.0 Plt Count 682 H Iron Saturation 6.2 L Ferritin 8 L Total Bilirubin 0.30 0.90 Direct Bilirubin AST 54 H ALT 38 Alkaline Phosphatase 581 H Carcinoembryonic Ag 2.4 Vitamin B12 882 03/13/21 06/17/21 09/10/21 11:55 15:03 15:00 WBC 6.5 Hgb 8.8 L 11.9 L 11.9 L MCV Plt Count Iron Saturation 9.5 L 6.2 L 15.8 Ferritin 8 L 561 H 73 Total Bilirubin 0.60 Direct Bilirubin AST ALT Alkaline Phosphatase Carcinoembryonic Ag 2.0 1.4 2.9 Vitamin B12 663 12/13/21 03/19/22 06/10/22 16:00 09:20 11:25 WBC Hgb 11.5 L 12.1 L 12.6 L MCV Plt Count Iron Saturation 36.8 10.4 L 96.9 H Ferritin 37 22 L 689 H Total Bilirubin Direct Bilirubin AST ALT Alkaline Phosphatase Carcinoembryonic Ag 2.8 3.4 3.8 Vitamin B12 561 09/09/22 10/07/22 01/06/23 15:48 13:25 13:39 WBC Hgb 10.7 L 11.7 L MCV Plt Count Iron Saturation 31.5 26.8 Ferritin 315 163 Total Bilirubin 2.80 H 2.00 H Direct Bilirubin 1.58 H AST 115 H ALT 94 H Alkaline Phosphatase 814 H Carcinoembryonic Ag 3.5 3.1 Vitamin B12 03/31/23 05/14/23 09/24/23 11:43 14:07 09:32 WBC Hgb 11.1 L 11.3 L 12.7 L MCV Plt Count Iron Saturation 24.8 34.8 Ferritin 99 58 105 Total Bilirubin Direct Bilirubin AST ALT Alkaline Phosphatase Carcinoembryonic Ag 2.9 3.1 3.6 Vitamin B12 721 11/18/23 02/11/24 08/11/24 17:01 14:40 09:03 WBC Hgb 12.2 L MCV Plt Count Iron Saturation 23.8 18.0 Ferritin 92 226 Total Bilirubin Direct Bilirubin AST ALT Alkaline Phosphatase Carcinoembryonic Ag 3.3 1.7 Vitamin B12 1699 H 08/15/24 08:49 WBC Hgb 10.7 L MCV Plt Count Iron Saturation Ferritin Total Bilirubin Direct Bilirubin AST ALT Alkaline Phosphatase Carcinoembryonic Ag Vitamin B12 Exam Physical Exam Const alert, oriented x3 and no apparent distress General Appearance: frail Nutritional Appearance: thin Coding Level of Care Code Off vis,est,level 3 Exam Problem Focused Diagnoses Cancer of sigmoid colon C18.7 Iron deficiency anemia due to chronic blood loss D50.0 Assessment and Plan Assessment and Plan (1) Cancer of sigmoid colon: Status: Chronic (2) Iron deficiency anemia due to chronic blood loss: Status: Chronic Plan 59 YOM with 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 Patient is status post total proctocolectomy January 2021 at [facility] byDr. Johnson. Cancer stage II with no yakov metastases. He's a normocytic anemia and intermittent thrombocytosis. Anemia combination ofiron deficiency due to chronic GI bleed, and chronic inflammatory disease . Thrombocytosis most likely reactive and resolved after correction of iron deficiency. Chronic comorbid conditions: Status post liver transplant (April 2024, chronic diarrhea post proctocolectomy. Plan: 1-continue surveillance. Follow-up every 4 months (4th year of surveillance) with H&P and CEA measurement. 2-For iron deficiency anemia advised IV iron rather than oral iron and lieu of the extensive bowel resection on an as-needed basis guided by blood work. Following a loading dose of Injectafer in August 2022 he has no residual iron deficiency. We will continue watchful 3-he has no evidence for B12 deficiency at present but he is at risk for, will be monitored on an annual basis. 4-Screening colonoscopy at [facility], last was in 2024. Robe Zavala MD International Trade Teacher, [facility] Divisions of Medical Oncology & Hematology Department of Internal Medicine [place] [phone] This note was generated using a voice recognition system software. Although itwas reviewed by the author prior to finalization, it may still contain incorrectwords, spelling, and punctuation that were not noted when reviewing prior to saving. If a clinically significant typo or inaccurately typed phrase is noted, please notify the author. 08/17/24 0931 <Electronically signed by Robe romo MD> Date _ Robe Zavala MD Cosigner Signature: Date (if applicable) CC: Dr. Olive Valera MD ~ [facility] [employer] Work Phone: [phone] 162-413106-10-2025 History of Present illness Narrative* Marylin Mccarthy, [facility] - 08/09/2024 5:52 PM EDT Department of Pharmacy Transplant Note Patient: Jc Dunaway Transplant Discharge Follow-up Note Transplant date: 05/25/2024 (Liver) Transplant type: Liver Primary disease: Primary Sclerosing Cholangitis: Ulcerative Colitis Discharge date: 08/09/24 Discharge location: Home Admission summary: Patient admitted with fevers and diarrhea treated with cefepime from 08/04-08/09 (Day of discharge) and started on doxycycline 100mg BID x14 days for Qfever (08/09-08/22) started after CT guided IR biopsy on 08/09 of pelvic mass/nodule. All other ID workup unremarkable. MRCP with mild to moderate biliary dilation no ERCP due to Janay. Discharge medications Maintenance immunosuppression: Mycophenolate mofetil: 500 mg by mouth twice daily Tacrolimus: 3 mg by mouth twice daily Last level(s): Lab Results Component Value Date/Time Tacrolimus, Trough 5.9 08/09/2024 0546 Tacrolimus, Trough 5.4 08/08/2024 0604 Tacrolimus, Trough 5.6 08/07/2024 0623 TACROLIMUS LEVEL(TROUGH),MANUAL ENTER 6.8 08/01/2024 0912 TACROLIMUS LEVEL(TROUGH),MANUAL ENTER 8.7 07/28/2024 0842 TACROLIMUS LEVEL(TROUGH),MANUAL ENTER 8.5 07/26/2024 0849 Last dose change: 08/09 reduced from 4 mg BID Mistake at discharge STEPHANIE to send message to patient to go back to 4 mg BID 08/10 Trough goal: 7-9 Prednisone 5 mg daily Immunosuppression modified due to: N/A Medication additions/changes: Witch Kentrell pads PRN Doxycycline 100 mg BID (EOT: 08/22) Fiberlax 625 mg daily Loperamide 2 mg QID PRN Ursodiol 600 mg BID (08/04 restarted for LFTs) Name: Marylin Mccarthy RPH Phone: [phone] Date/Time: 08/09/2024 9:47 PM * Nirali Berry RP - 08/09/2024 5:13 PM EDT Images from the original note were not included. [facility] ([facility] Note: Non-Verbal Med Rec [facility] received the following discharge prescription(s): Total cost is $7.91. I have reviewed the Discharge Rx Reconciliation Report. The discharge prescription(s) will be delivered to the patient on 08/09/2024. Nirali Berry RP Specialty ([place]) [phone] Carlos Enriuqe [phone] [facility] [phone] [facility] Bedside Delivery [phone] [place] [phone] [facility] [phone] [place] [phone] [place] [phone] * Perlita Armijo, [employer] - 08/09/2024 11:48 AM EDT Hepatobiliary Follow-Up Consult Note IDENTIFYING DATA/REASON FOR CONSULTATION PATIENT: Jc Duanway ADMIT DATE: 08/01/2024 TIME OF EVALUATION: 08/09/2024 11:48 AM HOSPITAL STAY: LOS: 8 days REFERRING PHYSICIAN: TRISHA Aguilar* REASON FOR CONSULTATION: s/p OLT SUBJECTIVE/INTERVAL HISTORY: No acute events HISTORY OF PRESENT ILLNESS: Jc Dunaway is a 59 y.o. 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 We have been consulted regarding s/p OLT. Fall Risk: Assessed for patient fall risk and discussed safety measures during rounding. Patient has a past medical history of UC, colon cancer s/p TPC/IPAA with pouch- rectal anastomosis, and PSC cirrhosis s/p DCD OLT 05/25/24 (D+/R-). With RNY choledochojejunostomy. Donor HBcAb positive.Post-op course c/b exlap 06/03 with bile leak at choledocho-j, and bowel obstruction at site of previous J-pouch; cultures at that time were positive for naeem auris and ESBL e coli, for which patient was treated with course of micafungin and ertapenem. 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 Patient presents with fevers, Tmax 103F. Also endorsing new diarrhea over last 3 weeks, in additionto rectal pain and hematochezia. Does have known h/o hemorrhoids. States he was treated for pouchitis previously but was not diagnosed based on scope, just empirically. 08/03: pouchoscopy, unremarkable PAST MEDICAL, SURGICAL, FAMILY & SOCIAL HISTORY: Past Medical History: Diagnosis Date Cirrhosis of liver not due to alcohol 03/15/2024 Colon cancer 10/2020 Primary sclerosing cholangitis Ulcerative colitis diagnosed in the 80s- no surgery Past Surgical History: Procedure Laterality Date LAPAROTOMY EXPLORATORY N/A 06/03/2024 Laterality: N/A; Surgeon: Dalia Thomas MD; Location: [facility] LIVER TRANSPLANT, ORTHOTOPIC N/A 05/25/2024 Laterality: N/A; Surgeon: Dalia Thomas MD; Location: [facility] EXAM UNDER ANESTHESIA ANORECTAL N/A 02/28/2022 Laterality: N/A; Surgeon: Miroslava Joiner MD; Location: [facility] PERIOP ENDOSCOPY SMALL INTESTINE POUCH DIAGNOSTIC N/A 02/28/2022 Laterality: N/A; Surgeon: Miroslava Joiner MD; Location: [facility] PERIOP LOOP ILEOSTOMY CLOSURE N/A 06/04/2021 Laterality: N/A; Surgeon: Miroslava Joiner MD; Location: [facility] ENDOSCOPY SMALL INTESTINE POUCH DIAGNOSTIC N/A 04/22/2021 Laterality: N/A; Surgeon: Miroslava Joiner MD; Location: [facility]OS[facility] COLOPROCTECTOMY TOTAL W/ LOOP ILEOSTOMY OR CREATION ILEAL RESERVOIR LAPAROSCOPIC N/A 02/12/2021 Laterality: N/A; Surgeon: Miroslava Joiner MD; Location: [facility] OR SIGMOIDOSCOPY DIAGNOSTIC N/A 02/04/2021 Laterality: N/A; Surgeon: Miroslava Joiner MD; Location: [facility] ENDOSCOPY HIP REPLACEMENT Left 2006 COLONOSCOPY DIAGNOSTIC Nov 20202001 Family History Problem Relation Age of Onset Colorectal Cancer Neg Hx Social History Socioeconomic History Marital status: Tobacco Use Smoking status: Never Smokeless tobacco: Never Vaping Use Vaping status: Never Used Substance and Sexual Activity Alcohol use: Not Currently Drug use: Not Currently Social Drivers of Health Financial Resource Strain: Low Risk (05/26/2024) Overall Financial Resource Strain (CARDIA) Difficulty of Paying Living Expenses: Not hard at all Food Insecurity: No Food Insecurity (08/01/2024) NCSS - Food Insecurity Worried About Running Out of Food in the Last Year: No Ran Out of Food in the Last Year: No Transportation Needs: No Transportation Needs (08/01/2024) NCSS - Transportation Lack of Transportation: No Personal Safety: Not At Risk (08/01/2024) NCSS - Interpersonal Safety Feels Physically and Emotionally Safe: Yes Physically Hurt by Someone: No Humiliated or Emotionally Abused by Someone: No Housing Stability: Not At Risk (08/01/2024) NCSS - Housing/Utilities Has Housing: Yes Worried About Losing Housing: No Unable to Get Utilities: No MEDICATIONS: SCHEDULED: Doxycycline monohydrate (MONODOX) capsule 100 mg, 100 mg, Q12H Entecavir (BARACLUDE) tablet 0.5 mg, 0.5 mg, Daily Loperamide (IMODIUM) capsule 2 mg, 2 mg, TID Mycophenolate mofetil (CELLCEPT) capsule 500 mg, 500 mg, bid polycarbophil (FIBERCON) tablet 625 mg, 625 mg, Daily predniSONE (DELTASONE) tablet 5 mg, 5 mg, Daily Sulfamethoxazole-trimethoprim (BACTRIM DS) 800-160 MG per tablet 1 tablet, 1 tablet, Q24H Tacrolimus (PROGRAF) capsule 4 mg, 4 mg, bid ursodiol (ACTIGALL) capsule 600 mg, 600 mg, BID valGANciclovir (valCYTE) tablet 450 mg, 450 mg, BID FLUIDS/DRIPS: PRNs: witch kentrell-glycerin, 1 Application, PRN ALLERGIES: He has no known allergies. REVIEW OF SYSTEMS; otherwise full ROS was reviewed and was otherwise negative Review of Systems Constitutional: Negative. HENT: Negative. Cardiovascular: Negative. Musculoskeletal: Negative. Psychiatric: Negative. Lymph/Heme: Negative. PHYSICAL EXAM: Temp: [97.9 F (36.6 C)-98.3 F (36.8 C)] 98.2 F (36.8 C) Pulse (Heart Rate): [82-91] 82 Resp Rate: [14-16] 14 BP: (113-133)/(67-75) 123/72 O2 Sat (%): [96 %-99 %] 96 % I/O last 3 completed shifts: In: 2157 [P.O.:2157] Out: - Oxygen Therapy: Oxygen Therapy O2 Sat (%): 96 % O2 Device: room air Constitutional: Breathing easily, in no acute distress. Does not appear cachectic. HEENT: PER, neg scleral icterus, normal appearing oropharynx, no appreciable cervical LAD Cardiovascular: Normal rate and regular rhythm. Pulmonary/Chest: Breath sounds normal. Abdominal: Soft. NT/ND. No appreciable HS. Extrem: No appreciable edema. No gross focal motor deficits in distal extrem. Neurological: AOx3. Skin: Does not appear jaundiced. LABS AND IMAGING: Recent Results (from the past 24 hours) CHEM 7 (LYTES,BUN,CREA,GLUC) Collection Time: 08/09/24 5:46 AM Result Value Ref Range Sodium 138 135 - 145 mmol/L Potassium 4.4 3.5 - 5.0 mmol/L Chloride 105 98 - 108 mmol/L CO2 25 21 - 31 mmol/L Glucose 76 Nonfastin-179 mg/dL; Fastin-99 mg/dL BUN 25 7 - 25 mg/dL Creatinine 0.69 (L) 0.70 - 1.30 mg/dL Bun/Crea Ratio 36 Osmolality (Calculated) 293 278 - 305 mOsm/kg Anion Gap 12 7 - 17 mmol/L eGFR, CKD-EPI, Male >90 >=60 mL/min/1.73m2 PHOSPHATE, INORGANIC Collection Time: 08/09/24 5:46 AM Result Value Ref Range Phosphorous 4.1 2.2 - 4.6 mg/dL MAGNESIUM Collection Time: 08/09/24 5:46 AM Result Value Ref Range Magnesium 1.6 1.6 - 2.6 mg/dL CALCIUM Collection Time: 08/09/24 5:46 AM Result Value Ref Range Calcium 8.7 8.6 - 10.5 mg/dL HEPATIC FUNCTION PANEL Collection Time: 08/09/24 5:46 AM Result Value Ref Range Albumin 3.5 3.5 - 5.0 g/dL Bilirubin Direct 0.1 <0.3 mg/dL Bilirubin Total 0.2 <1.5 mg/dL ALP 241 (H) 32 - 126 U/L ALT 39 10 - 52 U/L AST 31 10 - 39 U/L Total Protein 6.2 (L) 6.4 - 8.3 g/dL CBC AND ELECTRONIC DIFF Collection Time: 08/09/24 5:46 AM Result Value Ref Range WBC Count 4.87 3.73 - 10.10 K/uL RBC Count 3.20 (L) 4.38 - 5.83 M/uL Hemoglobin 9.9 (L) 13.4 - 16.8 g/dL Hematocrit 31.6 (L) 39.6 - 48.8 % Mean Cell Volume 98.8 (H) 79.0 - 94.5 fL Mean Cell Hgb 30.9 26.1 - 33.3 pg Mean Cell Hgb Conc 31.3 (L) 31.9 - 36.5 g/dL RBC Distribution 16.4 (H) 10.9 - 14.3 % Platelet Count 450 (H) 146 - 337 K/uL Mean Platelet Volume 10.5 8.7 - 12.3 fL TACROLIMUS LEVEL, TROUGH (PRE DRUG LEVEL) Collection Time: 08/09/24 5:46 AM Result Value Ref Range Tacrolimus, Trough 5.9 Bone Marrow Transplant: 5.0-15.0 Kidney/Pancreatic Transplant: 0 to 3 months: 8.0-10.0, 3 to 12 months: 6.0-8.0, >12 months: 4.0- 6.0 ng/mL MANUAL DIFF Collection Time: 08/09/24 5:46 AM Result Value Ref Range DIFF STATUS Manual Differential Bands Relative 0.0 % Segs Relative 57.8 % Lymph Relative 25.9 % Tama Relative 11.2 % Eos Relative 3.4 % Baso Relative 1.7 % Segs & Bands, Absolute 2.81 1.57 - 6.19 K/uL Abs Lymph Manual 1.26 0.83 - 3.57 K/uL Abs Tama Manual 0.55 0.24 - 0.93 K/uL Abs Eos Manual 0.17 0.00 - 0.48 K\uL Abs Baso Manual 0.08 0.00 - 0.09 K/uL RBC Morphology RBC INDICES CONFIRMED WITH MANUAL SLIDE REVIEW Platelet Estimate Automated platelet count confirmed by manual slide review Echinocytes Present (A) (none) Ovalocytes Present (A) (none) Platelet Clumping Present (A) (none) Other Labs Reviewed. Imaging 08/18/24 - CT Chest without contrast No findings of thoracic metastatic disease. 08/05/24 - MRI Abdomen without contrast 1. Changes from liver transplant and choledochojejunostomy with mild to moderate biliary dilation which could be secondary to narrowing/stricture at the choledochojejunostomy. 08/02/24 - CT Abdomen/Pelvis without contrast 1. No acute findings in the abdomen and pelvis. 2. Indeterminate nodule/mass in the left hemipelvis measuring up to 2.6 cm. ASSESSMENT & RECOMMENDATIONS: Jc Dunaway is a 59 y.o. 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 We have been consulted regarding s/p OLT. IMPRESSION: PSC cirrhosis s/p DCD OLT 05/25/24 (D+/R-) with RNY choledochojejunostomy Donor HBcAb positive Hx UC, colon cancer s/p TPC/IPAA with pouch-rectal anastomosis Hx bile leak, bowel obstruction Diarrhea, fevers, hematochezia IS: -Prednisone 5 mg daily -MMF 500 mg BID -Tacrolimus 4 mg BID (trough 5.9, 08/09) RECOMMENDATIONS: -Continue tacrolimus at current dosing. -New fevers, Tmax 103F. With new onset diarrhea over the last 3 weeks (enteric panel negative), rectal pain, and hematochezia. Pouchoscopy 08/03, unremarkable. Bx unremarkable. 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 Q fever antibody positive, now on treatment with doxycycline. ID following. 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 -CT A/P with no evidence of infx, did have indeterminate nodule/mass in left hemipelvis. Pending IRbx of lesion today. Notably did have colon cancer history previously, CT chest negative. -LFTs improved with addition of ursodiol - continue. MRCP as above. Could consider ERCP (altered anatomy) vs PTC pending trend. -Continue entecavir ongoing for HBV ppx -IS otherwise as above; antiviral/antibacterial ppx per protocol -Plan of care discussed with transplant surgery -Will continue to follow. ANDRE Fuller Transplant Hepatology Nurse Practitioner For contact information (pager/spectralink), please go to [employer] > IM Consult Serv [facility] > [facility] Main Hepatology Consults I have spent 37 minutes in patient care related activities for this patient (chart review, direct patient contact, documentation, communication, and multi- disciplinary rounds). If you have any questions or need any further information, please feel free to contact our consult team. Thank you for allowing us to participate in the care of Jc Dunaway. Cosigned by Kris Ahmadi MD at 08/09/2024 5:54 PM EDT Associated attestation - Kris Ahmadi MD - 08/09/2024 5:54 PM EDT ATTENDING STATEMENT: I have personally seen and examined this patient independently. All pertinent data has been reviewed. I have discussed it with the Advanced Practice Provider. I have reviewed their note and agree with the findings and plan of care. BP 118/72 (BP Location: Right arm, BP Position: Lying) Pulse 80 Temp 97.8 F (36.6 C) (Oral) Resp 13 Ht 1.676 m (5' 6) Wt 47.7 kg (105 lb 1.6 oz) SpO2 100% BMI 16.96 kg/m Smoking Status Never Patient appears comfortable. Borderline tachycardic, regular, lungs clear, abdomen soft and non-distended, no LE edema ASSESSMENT: Mr. Dunaway is a 58 year old with history of UC, colon cancer s/p colectomy / IPAA and PSC cirrhosis s/p DCD OLT 05/25/2024 (D+/R-) with Janay-en-Y choledochojejunostomy. Donor HBcAb positive. He was hospitalized with fever, diarrhea, nausea and vomiting. Prior hospital stay with bowel obstruction and bile leak s/p ex lap with cultures with ESBL E. coli. Imaging with findings of retroperitoneal mass. Pouchoscopy with no significant endoscopic abnormalities and unremarkable biopsies. IS: -Prednisone 5 mg daily -MMF 500 mg BID -Tacrolimus 4 mg BID (trough 5.9 on 08/09/2024) PLAN: -- Agree with current tacrolimus dosing. -- Q fever antibody positive, prompting treatment with doxycycline. Would discuss the need for ongoing prophylaxis with Transplant ID given occupational exposures. -- Plan for targeted biopsy of left hemipelvis lesion through IR on 08/09/2024. -- Continue entecavir for HBV prophylaxis. I have spent 39 minutes in patient care related activities (including direct patient contact and discussion of care plan with STEPHANIE). My time managing this patient included review of interval history, laboratories, radiology and consultation reports; performing a physical examination. Kris Ahmadi MD * Thad Perry, DO - 08/09/2024 10:19 AM EDT Images from the original note were not included. DIVISION OF INFECTIOUS DISEASES FOLLOW UP NOTE - Team 3 SUBJECTIVE/INTERVAL HISTORY: Pt is a 59 y.o. male being followed by ID, consulted on 08/04/24 for Readmission with cyclic fevers with L. Hemipelvis mass. No overnight events. No fevers or chills. No abdominal pain, nausea, vomiting, or diarrhea. No rashes. He reports he has not had any symptoms of fevers and overall feels okay. REVIEW OF SYSTEMS: Review of Systems Constitutional: Negative for chills, diaphoresis, fatigue, fever and unexpected weight change. HENT: Positive for dental problem. Negative for postnasal drip and rhinorrhea. Cracked tooth, no pain or irritation Eyes: Negative for photophobia. Respiratory: Negative for cough and shortness of breath. Cardiovascular: Negative for chest pain and palpitations. Gastrointestinal: Positive for diarrhea. Negative for abdominal pain, constipation and nausea. Genitourinary: Negative for difficulty urinating, dysuria and urgency. Musculoskeletal: Negative for myalgias. Neurological: Negative for dizziness, seizures and weakness. Psychiatric/Behavioral: Negative for confusion. MEDICATIONS reviewed, antimicrobials include: Doxycycline monohydrate 100 mg Oral Q12H Entecavir 0.5 mg Oral Daily Loperamide 2 mg Oral TID Mycophenolate mofetil 500 mg Oral bid polycarbophil 625 mg Oral Daily predniSONE 5 mg Oral Daily Sulfamethoxazole-trimethoprim 1 tablet Oral Q24H Tacrolimus 4 mg Oral bid ursodiol 600 mg Oral BID valGANciclovir 450 mg Oral BID PHYSICAL EXAM: Vitals: BP 123/72 (BP Location: Left arm, BP Position: Lying) Pulse 82 Temp 98.2 F (36.8 C) (Oral) Resp 14 Ht 1.676 m (5' 6) Wt 48 kg (105 lb 12.8 oz) Comment: standing SpO2 96% BMI 17.08 kg/m Smoking Status Never Physical Exam HENT: Mouth/Throat: Pharynx: Oropharynx is clear. No oropharyngeal exudate. Comments: Notes one tooth that is cracked but no pain and unable to visualize on exam Eyes: Extraocular Movements: Extraocular movements intact. Conjunctiva/sclera: Conjunctivae normal. Cardiovascular: Rate and Rhythm: Normal rate and regular rhythm. Heart sounds: No murmur heard. No gallop. Pulmonary: Effort: Pulmonary effort is normal. Breath sounds: Normal breath sounds. No wheezing or rhonchi. Abdominal: General: There is no distension. Palpations: Abdomen is soft. There is no mass. Tenderness: There is no guarding or rebound. Musculoskeletal: General: No tenderness. Right lower leg: No edema. Left lower leg: No edema. Skin: General: Skin is warm. Findings: No erythema or rash. Neurological: General: No focal deficit present. Mental Status: He is alert. Psychiatric: Mood and Affect: Mood normal. LABS/IMAGING: WBC/Hgb/Hct/Plts: 4.87/9.9/31.6/450 (08/09 545) Lab Results Component Value Date RBCDISTRIBU 16.4 (H) 08/09/2024 GRNLOCYT 53.9 08/08/2024 LYMPHOCYT 27.2 08/08/2024 MONOCYTELEC 12.7 08/08/2024 EOSINOPHILS 3.4 08/09/2024 BASOPHILS 1.7 08/09/2024 LYMPHOCYTABS 1.26 08/09/2024 EOSINOPHLABS 0.17 08/09/2024 PLATELET 450 (H) 08/09/2024 MPV 10.5 08/09/2024 Bun/Creat/Cl/CO2/Glucose: 25/0.69/105/25/76 (08/09 545) Na/K+/Phos/Mg/Ca: 138/4.4/4.1/1.6/8.7 (08/09 0546) Lab Results Component Value Date ALT 39 08/09/2024 AST 31 08/09/2024 GGT 210 08/01/2024 ALKPHOS 241 (H) 08/09/2024 BILITOTAL 0.2 08/09/2024 BILIDIRECT 0.1 08/09/2024 LDA: 1x PIV Microbiology and Other Significant ID Labs: (personally reviewed, analyzed, and summarized as follows) Hist/Blasto Bartonella, Coxiella Ehrlichia/Anaplasma 08/01/24 Blood Cultures 04/03 NGTD 08/02/24 Negative VRP 08/02/24 Negative Stool PCR 08/05/24 Negative C. Diff 08/05/24 Q fever AB positive > Titer 1:32 IgG 08/05/24 IgG/IgM Titers unremarkable of barotnella 08/04/24 Histo/Blasto negative Imaging: (personally reviewed images and agree with report as written unless otherwise stated) 08/02/24 CT AP with indeterminate nodule/mass in left hemipelvis measuring up to 2.6 cm 08/03/24 Pouchoscopy 08/03 with healthy j-pouch, one polyp in pre-pouch ileum removed with cold biopsy forceps ASSESSMENT: 59 y.o Male with ESLD (PSC) S/P OLT 05/25/24, UC + Sigmoid Cancer S/P Total proctocolectomy and loopileostomy (2020). Presented on 08/01/24 for persistent fever and diarrhea. Found to have a pelvic mass/node on CT, plan to biopsy by IR on 08/09/24. 08/03/24 pouchoscopy unremarkable. ID consulted for assistance and management. Q fever Ab returned positive - reflex titer Phase II IgG 1:32 and negative. With patient's cyclic fevers will plan to treat and repeat titers in 4 weeks in outpatient in the setting of possibility this is true positive (cow exposure). After biopsy tomorrow start doxycyline 100mg BID x14d, can follow up with ID only if repeat serology is abnormal. Notably Negative Histo/Blasto, bartonella, Ehrlichia. Febrile illness Abnormal Q fever Serology with known exposure 2.6 cm mass in left hemipelvis S/p OLT 05/25/24 for ESLD 2/2 PSC UC and sigmoid cancer s/p total procotocolectomy and loop ileostomy 2020, underwent loop ileostomy closure 05/2021 IS with tacrolimus, MMF, and prednisone Chronic Diarrhea Acute Elevated LFTs Lymphopenia C. Auris Colonization Estimated Creatinine Clearance: 77 mL/min (A) (by C-G formula based on SCr of 0.69 mg/dL (L)). RECOMMENDATIONS: Diagnostics Repeat Q fever serology in 4 weeks outpatient [employer] Doxycycline 100 mg Q12 x 14 days following biopsy. Patient was staffed with Dr. Hosea Odell ID Team 3 (SOT) Will continue to follow with you. If you have any questions, please reach out to the ID Team 3 (SOT) pager found in [employer] below. The ID Team pagers are available - Thursday through Thursday from 7:00 am to 06:00 pm. For emergent or after hour issues, please call the on-call ID Fellow pager. [facility] - [facility] Infectious Disease - Thad Perry DO Internal Medicine Resident PGY-2 For urgent calls overnight or during the weekend, please page IM Consult Service Infectious Diseases on webexchange Cosigned by Hosea Odell DO at 08/09/2024 4:04 PM EDT Associated attestation - Hosea Odell DO - 08/09/2024 4:04 PM EDT I saw and independently examined the patient on 08/09/2024. I agree with the history, examination, and medical decision making as noted by Dr. Perry. Q fever phase 2 1:32 with no other pos. Not really consistent with acute nor chronic Q fever but has a significant risk factor - I think a 14d course of doxycyline is reasonable. Repeat serology in 4weeks. Follow up on pathology. Doesn't need ID follow-up if no concern for infection on path and repeat serology but I can see him if develops any concern for continued fevers or infection. Please message via [employer] secure chat or page with any questions or concerns. Hosea Odell DO International Trade Teacher Division of Infectious Disease * Yolanda Welsh MD - 08/09/2024 9:58 AM EDT Colorectal Surgery Progress Note Subjective/Interval Events: No acute events overnight. Reports his stools are improving with 5-6 more formed movements rather than watery diarrhea. Denies abdominal pain. O: BP 123/72 (BP Location: Left arm, BP Position: Lying) Pulse 82 Temp 98.2 F (36.8 C) (Oral) Resp 14 Ht 1.676 m (5' 6) Wt 48 kg (105 lb 12.8 oz) Comment: standing SpO2 96% BMI 17.08 kg/m Smoking Status Never I/O last 3 completed shifts: In: 2157 [P.O.:2157] Out: - Physical Exam: General: lying in bed, NAD Lungs: respirations easy and regular Abdomen: soft, non distended, non tender to palpation. Surgical scars well healed. Extremities: warm and well perfused, no edema Labs: WBC/Hgb/Hct/Plts: 4.87/9.9/31.6/450 (08/09 545) Na/K+/Phos/Mg/Ca: 138/4.4/4.1/1.6/8.7 (08/09 545) Bun/Creat/Cl/CO2/Glucose: 25/0.69/105/25/76 (08/09 545) A/P: Jc Dunaway is a 59 y.o. male with PMH of Ulcerative colitis and sigmoid colon cancer s/pJ pouch ([id number], Dr. Joiner), PSC c/b ESLD s/p OLT 05/05/2024 who is readmitted for fevers unknown origin and diarrhea. Appears diarrhea has been a longstanding issue him since time of his J pouch creations (and even prior with the [place]) and was previously responsive to Lomotil, however has not been on the medication in many years. Recent pouchoscopy without evidence of active pouchitis. Stools improving to more of target function with a pouch with 5-6 soft, formed bowel movements/day. - Continue bowel regiment with imodium 2mg TID and fiber. If starting to have looser movements can slowly titrate/increase imodium but would hold steady at this dose for now. - Follow up with Dr. Joiner outpatient as needed - CRS will sign off, please reach out with any questions or concerns Patient and treatment plan discussed with attending Dr. Rhys Welsh MD General Surgery, PGY-3 * Perlita Armijo, WATER TREATMENT OPERATOR-FILTER TIP CATCHER - 08/08/2024 11:57 AM EDT Hepatobiliary Follow-Up Consult Note IDENTIFYING DATA/REASON FOR CONSULTATION PATIENT: Jc Dunaway ADMIT DATE: 08/01/2024 TIME OF EVALUATION: 08/08/2024 11:57 AM HOSPITAL STAY: LOS: 7 days REFERRING PHYSICIAN: TRISHA Aguilar* REASON FOR CONSULTATION: s/p OLT SUBJECTIVE/INTERVAL HISTORY: No acute events HISTORY OF PRESENT ILLNESS: Jc Dunaway is a 59 y.o. 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 We have been consulted regarding s/p OLT. Fall Risk: Assessed for patient fall risk and discussed safety measures during rounding. Patient has a past medical history of UC, colon cancer s/p TPC/IPAA with pouch- rectal anastomosis, and PSC cirrhosis s/p DCD OLT 05/25/24 (D+/R-). With RNY choledochojejunostomy. Donor HBcAb positive.Post-op course c/b exlap 06/03 with bile leak at choledocho-j, and bowel obstruction at site of previous J-pouch; cultures at that time were positive for naeem auris and ESBL e coli, for which patient was treated with course of micafungin and ertapenem. 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 Patient presents with fevers, Tmax 103F. Also endorsing new diarrhea over last 3 weeks, in additionto rectal pain and hematochezia. Does have known h/o hemorrhoids. States he was treated for pouchitis previously but was not diagnosed based on scope, just empirically. 08/03: pouchoscopy, unremarkable PAST MEDICAL, SURGICAL, FAMILY & SOCIAL HISTORY: Past Medical History: Diagnosis Date Cirrhosis of liver not due to alcohol 03/15/2024 Colon cancer 10/2020 Primary sclerosing cholangitis Ulcerative colitis diagnosed in the 80s- no surgery Past Surgical History: Procedure Laterality Date LAPAROTOMY EXPLORATORY N/A 06/03/2024 Laterality: N/A; Surgeon: Dalia Thomas MD; Location: [facility] MAIN OR LIVER TRANSPLANT, ORTHOTOPIC N/A 05/25/2024 Laterality: N/A; Surgeon: Dalia Thomas MD; Location: [facility] MAIN OR EXAM UNDER ANESTHESIA ANORECTAL N/A 02/28/2022 Laterality: N/A; Surgeon: Miroslava Joiner MD; Location: [facility] PERIOP ENDOSCOPY SMALL INTESTINE POUCH DIAGNOSTIC N/A 02/28/2022 Laterality: N/A; Surgeon: Miroslava Joiner MD; Location: [facility] PERIOP LOOP ILEOSTOMY CLOSURE N/A 06/04/2021 Laterality: N/A; Surgeon: Miroslava Joiner MD; Location: [facility] MAIN OR ENDOSCOPY SMALL INTESTINE POUCH DIAGNOSTIC N/A 04/22/2021 Laterality: N/A; Surgeon: Miroslava Joiner MD; Location: [facility] ENDOSCOPY COLOPROCTECTOMY TOTAL W/ LOOP ILEOSTOMY OR CREATION ILEAL RESERVOIR LAPAROSCOPIC N/A 02/12/2021 Laterality: N/A; Surgeon: Miroslava Joiner MD; Location: [facility] MAIN OR SIGMOIDOSCOPY DIAGNOSTIC N/A 02/04/2021 Laterality: N/A; Surgeon: Miroslava Joiner MD; Location: [facility] ENDOSCOPY HIP REPLACEMENT Left 2005 COLONOSCOPY DIAGNOSTIC Nov 20202001 Family History Problem Relation Age of Onset Colorectal Cancer Neg Hx Social History Socioeconomic History Marital status: Tobacco Use Smoking status: Never Smokeless tobacco: Never Vaping Use Vaping status: Never Used Substance and Sexual Activity Alcohol use: Not Currently Drug use: Not Currently Social Drivers of Health Financial Resource Strain: Low Risk (05/26/2024) Overall Financial Resource Strain (CARDIA) Difficulty of Paying Living Expenses: Not hard at all Food Insecurity: No Food Insecurity (08/01/2024) NCSS - Food Insecurity Worried About Running Out of Food in the Last Year: No Ran Out of Food in the Last Year: No Transportation Needs: No Transportation Needs (08/01/2024) NCSS - Transportation Lack of Transportation: No Personal Safety: Not At Risk (08/01/2024) NCSS - Interpersonal Safety Feels Physically and Emotionally Safe: Yes Physically Hurt by Someone: No Humiliated or Emotionally Abused by Someone: No Housing Stability: Not At Risk (08/01/2024) NCSS - Housing/Utilities Has Housing: Yes Worried About Losing Housing: No Unable to Get Utilities: No MEDICATIONS: SCHEDULED: Entecavir (BARACLUDE) tablet 0.5 mg, 0.5 mg, Daily Loperamide (IMODIUM) capsule 2 mg, 2 mg, TID Mycophenolate mofetil (CELLCEPT) capsule 500 mg, 500 mg, bid polycarbophil (FIBERCON) tablet 625 mg, 625 mg, Daily predniSONE (DELTASONE) tablet 5 mg, 5 mg, Daily Sulfamethoxazole-trimethoprim (BACTRIM DS) 800-160 MG per tablet 1 tablet, 1 tablet, Q24H Tacrolimus (PROGRAF) capsule 4 mg, 4 mg, Q24H And Tacrolimus (PROGRAF) capsule 3 mg, 3 mg, Q24H ursodiol (ACTIGALL) capsule 600 mg, 600 mg, BID valGANciclovir (valCYTE) tablet 450 mg, 450 mg, BID FLUIDS/DRIPS: PRNs: witch kentrell-glycerin, 1 Application, PRN ALLERGIES: He has no known allergies. REVIEW OF SYSTEMS; otherwise full ROS was reviewed and was otherwise negative Review of Systems Constitutional: Negative. HENT: Negative. Cardiovascular: Negative. Musculoskeletal: Negative. Psychiatric: Negative. Lymph/Heme: Negative. PHYSICAL EXAM: Temp: [97.4 F (36.3 C)-98.7 F (37.1 C)] 98.3 F (36.8 C) Pulse (Heart Rate): [73-96] 91 Resp Rate: [16-18] 18 BP: (112-126)/(66-71) 112/69 O2 Sat (%): [96 %-99 %] 98 % Weight: [48 kg (105 lb 12.8 oz)] 48 kg (105 lb 12.8 oz) I/O last 3 completed shifts: In: 1355 [P.O.:1355] Out: 450 [Urine:450] Oxygen Therapy: Oxygen Therapy O2 Sat (%): 98 % O2 Device: room air Constitutional: Breathing easily, in no acute distress. Does not appear cachectic. HEENT: PER, neg scleral icterus, normal appearing oropharynx, no appreciable cervical LAD Cardiovascular: Normal rate and regular rhythm. Pulmonary/Chest: Breath sounds normal. Abdominal: Soft. NT/ND. No appreciable HS. Extrem: No appreciable edema. No gross focal motor deficits in distal extrem. Neurological: AOx3. Skin: Does not appear jaundiced. LABS AND IMAGING: Recent Results (from the past 24 hours) CHEM 7 (LYTES,BUN,CREA,GLUC) Collection Time: 08/08/24 6:04 AM Result Value Ref Range Sodium 140 135 - 145 mmol/L Potassium 4.1 3.5 - 5.0 mmol/L Chloride 106 98 - 108 mmol/L CO2 26 21 - 31 mmol/L Glucose 84 Nonfastin-179 mg/dL; Fastin-99 mg/dL BUN 26 (H) 7 - 25 mg/dL Creatinine 0.75 0.70 - 1.30 mg/dL Bun/Crea Ratio 35 Osmolality (Calculated) 297 278 - 305 mOsm/kg Anion Gap 12 7 - 17 mmol/L eGFR, CKD-EPI, Male >90 >=60 mL/min/1.73m2 PHOSPHATE, INORGANIC Collection Time: 08/08/24 6:04 AM Result Value Ref Range Phosphorous 3.3 2.2 - 4.6 mg/dL MAGNESIUM Collection Time: 08/08/24 6:04 AM Result Value Ref Range Magnesium 1.8 1.6 - 2.6 mg/dL CALCIUM Collection Time: 08/08/24 6:04 AM Result Value Ref Range Calcium 8.7 8.6 - 10.5 mg/dL HEPATIC FUNCTION PANEL Collection Time: 08/08/24 6:04 AM Result Value Ref Range Albumin 3.5 3.5 - 5.0 g/dL Bilirubin Direct 0.1 <0.3 mg/dL Bilirubin Total 0.3 <1.5 mg/dL ALP 239 (H) 32 - 126 U/L ALT 30 10 - 52 U/L AST 16 10 - 39 U/L Total Protein 6.1 (L) 6.4 - 8.3 g/dL CBC AND ELECTRONIC DIFF Collection Time: 08/08/24 6:04 AM Result Value Ref Range WBC Count 4.08 3.73 - 10.10 K/uL RBC Count 3.21 (L) 4.38 - 5.83 M/uL Hemoglobin 10.2 (L) 13.4 - 16.8 g/dL Hematocrit 32.1 (L) 39.6 - 48.8 % Mean Cell Volume 100.0 (H) 79.0 - 94.5 fL Mean Cell Hgb 31.8 26.1 - 33.3 pg Mean Cell Hgb Conc 31.8 (L) 31.9 - 36.5 g/dL RBC Distribution 16.6 (H) 10.9 - 14.3 % Platelet Count 419 (H) 146 - 337 K/uL Mean Platelet Volume 10.2 8.7 - 12.3 fL DIFF STATUS Electronic Differential Segs + Bands Auto 53.9 % Immature Grans % 1.5 % Lymphocyte % Auto 27.2 % Monocyte % Auto 12.7 % Eosinophil % Auto 2.7 % Basophil % Auto 2.0 % Nucleated RBC 0.0 <=0.2 /100 WBC Segs + Bands,Absolute Auto 2.20 1.57 - 6.19 K/uL Immature Grans Absolute 0.06 <=0.07 K/uL Abs Lymph Auto 1.11 0.83 - 3.57 K/uL Abs Tama Auto 0.52 0.24 - 0.93 K/uL Abs Eos Auto 0.11 0.00 - 0.48 K/uL Abs Baso Auto 0.08 0.00 - 0.09 K/uL TACROLIMUS LEVEL, TROUGH (PRE DRUG LEVEL) Collection Time: 08/08/24 6:04 AM Result Value Ref Range Tacrolimus, Trough 5.4 Bone Marrow Transplant: 5.0-15.0 Kidney/Pancreatic Transplant: 0 to 3 months: 8.0-10.0, 3 to 12 months: 6.0-8.0, >12 months: 4.0- 6.0 ng/mL Other Labs Reviewed. Imaging 08/05/24 - MRI Abdomen without contrast 1. Changes from liver transplant and choledochojejunostomy with mild to moderate biliary dilation which could be secondary to narrowing/stricture at the choledochojejunostomy. 08/02/24 - CT Abdomen/Pelvis without contrast 1. No acute findings in the abdomen and pelvis. 2. Indeterminate nodule/mass in the left hemipelvis measuring up to 2.6 cm. ASSESSMENT & RECOMMENDATIONS: Jc Dunaway is a 59 y.o. 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 We have been consulted regarding s/p OLT. 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 -New fevers, Tmax 103F. With new onset diarrhea over the last 3 weeks (enteric panel negative), rectal pain, and hematochezia. Pouchoscopy 08/03, unremarkable. Bx unremarkable. 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 Q fever antibody positive, awaiting reflex testing. ID following. -CT A/P with no evidence of infx, did have indeterminate nodule/mass in left hemipelvis. Pending IRbx of lesion tomorrow. Notably did have colon cancer history previously; could consider CT Chest aswell. -LFTs improved with addition of ursodiol - continue. MRCP as above. Could consider ERCP (altered anatomy) vs PTC pending trend. -Continue entecavir ongoing for HBV ppx -IS otherwise as above; antiviral/antibacterial ppx per protocol -Plan of care discussed with transplant surgery -Will continue to follow. Perlita Armijo APRN-[facility] Transplant Hepatology Nurse Practitioner For contact information (pager/spectralink), please go to [employer] > IM Consult Serv [facility] > [facility] Main Hepatology Consults I have spent 38 minutes in patient care related activities for this patient (chart review, direct patient contact, documentation, communication, and multi- disciplinary rounds). If you have any questions or need any further information, please feel free to contact our consult team. Thank you for allowing us to participate in the care of Jc Dunaway. Cosigned by Kris Ahmaid MD at 08/08/2024 2:14 PM EDT Associated attestation - Kris Ahmadi MD - 08/08/2024 2:14 PM EDT ATTENDING STATEMENT: I have personally seen and examined this patient independently. All pertinent data has been reviewed. I have discussed it with the Advanced Practice Provider. I have reviewed their note and agree with the findings and plan of care. BP 112/69 (BP Location: Left arm, BP Position: Lying) Pulse 91 Temp 98.3 F (36.8 C) (Oral) Resp 18 Ht 1.676 m (5' 6) Wt 48 kg (105 lb 12.8 oz) Comment: standing SpO2 98% BMI 17.08 kg/m Smoking Status Never Patient appears comfortable. Borderline tachycardic, regular, lungs clear, abdomen soft and non-distended, no LE edema ASSESSMENT: Mr. Dunaway is a 58 year old with history of UC, colon cancer s/p colectomy / IPAA and PSC cirrhosis s/p DCD OLT 05/25/2024 (D+/R-) with Janay-en-Y choledochojejunostomy. Donor HBcAb positive. He was hospitalized with fever, diarrhea, nausea and vomiting. Prior hospital stay with bowel obstruction and bile leak s/p ex lap with cultures with ESBL E. coli. Imaging with findings of retroperitoneal mass. Pouchoscopy with no significant endoscopic abnormalities and unremarkable biopsies. IS: -Prednisone 5 mg daily -MMF 500 mg BID -Tacrolimus 4 mg in AM, 3 mg in PM (trough 5.4 on 08/08/2024) PLAN: -- Agree with current tacrolimus dosing. -- ID workup pending for fever. -- Plan for targeted biopsy of left hemipelvis lesion through IR on 08/09/2024. -- Continue entecavir for HBV prophylaxis. I have spent 39 minutes in patient care related activities (including direct patient contact and discussion of care plan with STEPHANIE). My time managing this patient included review of interval history, laboratories, radiology and consultation reports; performing a physical examination. Krsi Ahmadi MD * Elizabeth Barcenas, WATER TREATMENT OPERATOR-FILTER TIP CATCHER - 08/08/2024 10:00 AM EDT TRANSPLANT SURGERY IMMUNOSUPPRESSION/ PROGRESS NOTE: Date of Service: 08/08/2024 Admit Date: 08/01/2024 Date of last transplant: 05/25/24 Surgery Post-op Days: s/p SUBJECTIVE / INTERVAL UPDATE Resting easily sitting up in bed on exam. Feeling worn out but over all okay today. Endorsing loose stools improved after starting imodium. Denies pain or concerns at this time. Plan: - IR biopsy of Lt hemipelvis mass / nodule tomorrow (NPO at midnight) - CT chest non-con ordered to rule out metastasis - PENDING - ID following - infectious workup pending - Q fever reactive - okay to empirically start Doxycycline after biopsy per ID (before discharge) - ID will continue to follow inpatient and out - Encourage OOB and ambulation as able - Dispo - likely home after IR biopsy tomorrow OBJECTIVE: BP 118/73 (BP Location: Left arm, BP Position: Lying) Pulse 87 Temp 97.9 F (36.6 C) (Oral) Resp 16 Ht 1.676 m (5' 6) Wt 48 kg (105 lb 12.8 oz) Comment: standing SpO2 99% BMI 17.08 kg/m Smoking Status Never Intake/Output Summary (Last 24 hours) at 08/08/2024 1605 Last data filed at 08/08/2024 1417 Gross per 24 hour Intake 1173 ml Output 250 ml Net 923 ml Physical Exam: General: no acute distress Neuro: alert and oriented x 3 Cardiovascular: regular rate and rhythm, no murmurs, rubs, gallops Pulmonary: unlabored on RA Abdomen: soft, mildly distended, well healed incision Extremities: warm and well perfused Skin: no lesions Lines: PIV CENTRAL LINES: Central Line Indications: No line currently in place PMH/PSH/ROS: Refer to H&P Medications: Refer to MAR Labs: Lab Results Component Value Date WBC 4.08 08/08/2024 HGB 10.2 (L) 08/08/2024 HCT 32.1 (L) 08/08/2024 PLATELET 419 (H) 08/08/2024 MCV 100.0 (H) 08/08/2024 Lab Results Component Value Date SODIUM 140 08/08/2024 POTASSIUM 4.1 08/08/2024 CHLORIDE 106 08/08/2024 CO2 26 08/08/2024 BUN 26 (H) 08/08/2024 CREATSERUM 0.75 08/08/2024 GLUCOSE 84 08/08/2024 Lab Results Component Value Date ALT 30 08/08/2024 AST 16 08/08/2024 GGT 210 08/01/2024 ALKPHOS 239 (H) 08/08/2024 BILITOTAL 0.3 08/08/2024 BILIDIRECT 0.1 08/08/2024 Lab Results Component Value Date TACROLIMUS 5.4 08/08/2024 TACROLIMUS 5.6 08/07/2024 TACROLIMUS 6.1 08/06/2024 ] ASSESSMENT/PLAN Jc Dunaway is a 59 y.o. 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 Re-admitted for fevers of unknown origin and diarrhea. Immunosuppression: tacrolimus: 4 mg BID (Trough goal 7-9) - increased 08/08 mycophenolate mofetil: 500 mg bid prednisone: 5 mg daily Serology/Immunology CMV status D+/R- Valcyte prophylaxis for 3 months EBV D+/R+ Toxo IgG - Donor with risk criteria no Donor HCV Ab -/MYLA - Donor Hep B cAB positive Entecavir Graft Function Bili stable, AST/ALT/ALP elevated Ursodiol 600 mg started MRCP 08/05 with mild to moderate biliary dilation which could be 2/2 narrowing/stricture ar choledochojejunostomy LFTs currently all improving, not further intervention at this time Hepatology following Immunosuppression as outlined above Liver US 05/30 with patent transplant vasculature with normal direction of flow Continued Entecavir for donor Hep B cAB positive Fevers, unknown origin Diarrhea Hx of colon cancer s/p total proctocolectomy and loop ileostomy 2020 Reported Tmax 103 at home, has been afebrile since admission CT A/P 08/02 with indeterminate nodule/mass in left hemipelvis measuring up to 2.6 cm Plan for IR biopsy on 08/09 Per ID: pathology and microbiology (bacterial/anaerobic/fungal/AFB cultures - ordered) UA, RVP, CMV/EBV, enteric stool panel negative 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 Blood culture NGTD Pouchoscopy 08/03 with healthy j-pouch, one polyp in pre-pouch ileum removed with cold biopsy forceps J pouch biopsy negative for dysplasia Polyp biopsy negative for dysplasia Transplant ID consulted for recs C diff initially not sent d/t history of total proctocolectomy but send on 08/05 after review of literature showed case studies of patients with sone remnants of small bowel could still get infection C diff negative Imodium, fiber started 08/07 CRS consulted to evaluate for possible J pouch dysfunction Infectious testing ordered - C-diff neg - imodium started No further intervention recommended May also need to be referred to outpatient GI motility clinic Transplant ID consulted for further infectious work-up, additional testing ordered and pending histo/blasto, bartonella, Coxiella, and Ehrlichia/anaplasma on serum Q Fever - reactive Plan to empirically start Doxycycline after biopsy per ID (before discharge) ID will continue to follow patient while inpatient and follow-up outpatient 08/08 - CT Chest (non/con) - to rule out metastasis - PENDING Continue to monitor - remains afebrile and stools improved with imodium Anemia of Chronic Disease Baseline hgb ~8-10 Hgb currently stable Iron stores replete Monitor CBC daily and transfuse for Hgb <7 Nutrition: DIET REGULAR DIET NPO with meds Prophylaxis: DVT: SCDs 81 mg ASA - held on admission Infectious: PCP prophylaxis: bactrim DS CMV prophylaxis: Valcyte Discharge Social work consulted Expected discharge date: ~08/09 following IR biopsy Discharge to: home Fall Risk: Assessed for patient fall risk and discussed safety measures during rounding. Complexity. Underweight, Body mass index is 17.08 kg/m . - Monitor weight. Follow up with PCP. Malnutrition - Moderate Protein-Calorie Malnutrition (POA) (08/04/2024 10:00 AM) secondary to Chronic Illness (08/04/2024 10:00 AM) - Reviewed and agree with registered account administrator's recommendations. Wound Documentation Any conditions listed below are present on admission unless otherwise specified. . Immunosuppression drug levels are being reviewed on a daily basis and appropriate dose changes are made based on these levels. The plan of care was discussed with the patient and nursing staff. All questions and concerns addressed. These multidisciplinary rounds were represented by transplant surgery including attending surgeon, fellow, advance practice provider and/or resident, transplant pharmacy, discharge planning and nursing. ANDRE Diop Cosigned by CHAN Aguilar at 08/08/2024 7:24 PM EDT Associated attestation - Jonny Barriga MBBS - 08/08/2024 7:24 PM EDT I, CHAN Aguilar, have independently seen and examined the patient on 08/08/2024. I havereviewed the labs, discussed the patient with the fellow/resident/STEPHANIE and formulated the plan of care, as outlined in their note. I provided the substantial portion of care for this patient. I have evaluated the daily immunosuppression levels and graft function and made the adjustments reflected in the note. CHAN Aguilar * Thad Perry, - 08/08/2024 7:39 AM EDT Images from the original note were not included. DIVISION OF INFECTIOUS DISEASES FOLLOW UP NOTE - Team 3 SUBJECTIVE/INTERVAL HISTORY: Pt is a 59 y.o. male being followed by ID, consulted on 08/04/24 for Readmission with cyclic fevers with L. Hemipelvis mass. No overnight events. No fevers or chills. No abdominal pain, nausea, vomiting, or diarrhea. No rashes. He reports he has not had any symptoms of fevers and overall feels okay. REVIEW OF SYSTEMS: Review of Systems Constitutional: Negative for chills, diaphoresis, fatigue, fever and unexpected weight change. HENT: Positive for dental problem. Negative for postnasal drip and rhinorrhea. Cracked tooth, no pain or irritation Eyes: Negative for photophobia. Respiratory: Negative for cough and shortness of breath. Cardiovascular: Negative for chest pain and palpitations. Gastrointestinal: Positive for diarrhea. Negative for abdominal pain, constipation and nausea. Genitourinary: Negative for difficulty urinating, dysuria and urgency. Musculoskeletal: Negative for myalgias. Neurological: Negative for dizziness, seizures and weakness. Psychiatric/Behavioral: Negative for confusion. MEDICATIONS reviewed, antimicrobials include: Entecavir 0.5 mg Oral Daily Loperamide 2 mg Oral TID Mycophenolate mofetil 500 mg Oral bid polycarbophil 625 mg Oral Daily predniSONE 5 mg Oral Daily Sulfamethoxazole-trimethoprim 1 tablet Oral Q24H Tacrolimus 4 mg Oral Q24H And Tacrolimus 3 mg Oral Q24H ursodiol 600 mg Oral BID valGANciclovir 450 mg Oral BID PHYSICAL EXAM: Vitals: BP 112/71 (BP Location: Left arm, BP Position: Lying) Pulse 73 Temp 97.8 F (36.6 C) (Oral) Resp 16 Ht 1.676 m (5' 6) Wt 48 kg (105 lb 12.8 oz) Comment: standing SpO2 98% BMI 17.08 kg/m Smoking Status Never Physical Exam HENT: Mouth/Throat: Pharynx: Oropharynx is clear. No oropharyngeal exudate. Comments: Notes one tooth that is cracked but no pain and unable to visualize on exam Eyes: Extraocular Movements: Extraocular movements intact. Conjunctiva/sclera: Conjunctivae normal. Cardiovascular: Rate and Rhythm: Normal rate and regular rhythm. Heart sounds: No murmur heard. No gallop. Pulmonary: Effort: Pulmonary effort is normal. Breath sounds: Normal breath sounds. No wheezing or rhonchi. Abdominal: General: There is no distension. Palpations: Abdomen is soft. There is no mass. Tenderness: There is no guarding or rebound. Musculoskeletal: General: No tenderness. Right lower leg: No edema. Left lower leg: No edema. Skin: General: Skin is warm. Findings: No erythema or rash. Neurological: General: No focal deficit present. Mental Status: He is alert. Psychiatric: Mood and Affect: Mood normal. LABS/IMAGING: WBC/Hgb/Hct/Plts: 4.08/10.2/32.1/419 (08/09 603) Lab Results Component Value Date RBCDISTRIBU 16.6 (H) 08/08/2024 GRNLOCYT 53.9 08/08/2024 LYMPHOCYT 27.2 08/08/2024 MONOCYTELEC 12.7 08/08/2024 EOSINOPHILS 2.7 08/08/2024 BASOPHILS 2.0 08/08/2024 LYMPHOCYTABS 1.11 08/08/2024 EOSINOPHLABS 0.11 08/08/2024 PLATELET 419 (H) 08/08/2024 MPV 10.2 08/08/2024 Bun/Creat/Cl/CO2/Glucose: 26/0.75/106/26/84 (08/09 603) Na/K+/Phos/Mg/Ca: 140/4.1/3.3/1.8/8.7 (08/09 603) Lab Results Component Value Date ALT 30 08/08/2024 AST 16 08/08/2024 GGT 210 08/01/2024 ALKPHOS 239 (H) 08/08/2024 BILITOTAL 0.3 08/08/2024 BILIDIRECT 0.1 08/08/2024 LDA: 1x PIV Microbiology and Other Significant ID Labs: (personally reviewed, analyzed, and summarized as follows) Hist/Blasto Bartonella, Coxiella Ehrlichia/Anaplasma 08/01/24 Blood Cultures 04/03 NGTD 08/02/24 Negative VRP 08/02/24 Negative Stool PCR Imaging: (personally reviewed images and agree with report as written unless otherwise stated) 08/02/24 CT AP with indeterminate nodule/mass in left hemipelvis measuring up to 2.6 cm 08/03/24 Pouchoscopy 08/03 with healthy j-pouch, one polyp in pre-pouch ileum removed with cold biopsy forceps 08/05/24 Negative C. Diff 08/05/24 Q fever AB positive 08/05/24 IgG/IgM Titers unremarkable 08/04/24 Histo/Blast Pending ASSESSMENT: 59 y.o Male with ESLD (PSC) S/P OLT 05/25/24, UC + Sigmoid Cancer S/P Total proctocolectomy and loopileostomy (2020). Presented on 08/01/24 for persistent fever and diarrhea. Found to have a pelvic mass/node on CT, plan to biopsy by IR on 08/09/24. 08/03/24 pouchoscopy unremarkable. ID consulted for assistance and management. Unclear etiology of fevers, none have been recorded thus far this hospitalization and patient has reported feeling better with supportive care. 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 Will plan to follow up IR biopsy. 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 Auris Colonization -Estimated Creatinine Clearance: 71 mL/min (by C-G formula based on SCr of 0.75 mg/dL). RECOMMENDATIONS: Diagnostics Workup pending Therapeutics Okay to monitor off ABx Patient was staffed with Dr. Hosea Odell ID Team 3 (SOT) Will continue to follow with you. If you have any questions, please reach out to the ID Team 3 (SOT) pager found in [employer]Genda below. The ID Team pagers are available - Thursday through Thursday from 7:00 am to 06:00 pm. For emergent or after hour issues, please call the on-call ID Fellow pager. [employer] - [facility] Infectious Disease - Thad Perry DO Internal Medicine Resident PGY-2 For urgent calls overnight or during the weekend, please page IM Consult Service Infectious Diseases on webexchange Cosigned by Hosea Oedll DO at 08/08/2024 3:30 PM EDT Associated attestation - Hosea Odell DO - 08/08/2024 3:30 PM EDT I saw and independently examined the patient on 08/08/2024. I agree with the history, examination, and medical decision making as noted by Dr. Perry. Feeling much better, diarrhea (which is to some degree chronic) is better. Q fever Ab returned positive - reflex titers and PCR are pending. Possible this is true positive (cow exposure) but in light of clinical stability we can hold off treating until after his biopsy is done. After biopsy tomorrow start doxycyline 100mg BID x14d. We can follow labs and pathology as an outpatient if he is discharged tomorrow. I'll follow result and either d/w him via phone and/or bring to ID clinic Please message via [employer] secure chat or page with any questions or concerns. Hosea Odell DO International Trade Teacher Division of Infectious Disease * Cici Key PA-C - 08/07/2024 10:08 AM EDT TRANSPLANT SURGERY IMMUNOSUPPRESSION/ PROGRESS NOTE: Date of Service: 08/07/2024 Admit Date: 08/01/2024 Date of last transplant: 05/25/24 Surgery Post-op Days: s/p SUBJECTIVE / INTERVAL UPDATE Patient resting in bed. No major complaints today. No acute overnight events. Imodium started. Additional infectious workup ordered by ID still pending. OBJECTIVE: BP 132/78 (BP Location: Right arm, BP Position: Lying) Pulse 80 Temp 98.8 F (37.1 C) (Oral) Resp 18 Ht 1.676 m (5' 6) Wt 46.7 kg (102 lb 14.4 oz) SpO2 99% BMI 16.61 kg/m Smoking Status Never Intake/Output Summary (Last 24 hours) at 08/07/2024 1008 Last data filed at 08/07/2024 0623 Gross per 24 hour Intake 100 ml Output -- Net 100 ml Physical Exam: General: no acute distress Neuro: alert and oriented x 3 Cardiovascular: regular rate and rhythm, no murmurs, rubs, gallops Pulmonary: unlabored on RA Abdomen: soft, mildly distended, well healed incision Extremities: warm and well perfused Skin: no lesions Lines: PIV CENTRAL LINES: Central Line Indications: No line currently in place PMH/PSH/ROS: Refer to H&P Medications: Refer to MAR Labs: Lab Results Component Value Date WBC 3.73 08/07/2024 HGB 10.4 (L) 08/07/2024 HCT 33.3 (L) 08/07/2024 PLATELET 369 (H) 08/07/2024 MCV 100.6 (H) 08/07/2024 Lab Results Component Value Date SODIUM 138 08/07/2024 POTASSIUM 4.1 08/07/2024 CHLORIDE 105 08/07/2024 CO2 24 08/07/2024 BUN 28 (H) 08/07/2024 CREATSERUM 0.69 (L) 08/07/2024 GLUCOSE 85 08/07/2024 Lab Results Component Value Date ALT 40 08/07/2024 AST 23 08/07/2024 GGT 210 08/01/2024 ALKPHOS 276 (H) 08/07/2024 BILITOTAL 0.3 08/07/2024 BILIDIRECT 0.1 08/07/2024 Lab Results Component Value Date TACROLIMUS 6.1 08/06/2024 TACROLIMUS 5.9 08/05/2024 TACROLIMUS 11.8 08/04/2024 ] ASSESSMENT/PLAN Jc Dunaway is a 59 y.o. 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 Re-admitted for fevers of unknown origin and diarrhea. Immunosuppression: tacrolimus: 4 mg AM, 3 mg PM (Trough goal 7-9) - increased 08/07 mycophenolate mofetil: 500 mg bid prednisone: 5 mg daily Serology/Immunology CMV status D+/R- Valcyte prophylaxis for 3 months EBV D+/R+ Toxo IgG - Donor with risk criteria no Donor HCV Ab -/MYLA - Donor Hep B cAB positive Entecavir Graft Function Bili stable, AST/ALT/ALP elevated Ursodiol 600 mg started MRCP 08/05 with mild to moderate biliary dilation which could be 2/2 narrowing/stricture ar choledochojejunostomy LFTs currently all improving, not further intervention at this time Hepatology following Immunosuppression as outlined above Liver US 05/30 with patent transplant vasculature with normal direction of flow Continued Entecavir for donor Hep B cAB positive Fevers, unknown origin Diarrhea Hx of colon cancer s/p total proctocolectomy and loop ileostomy 2020 Reported Tmax 103 at home, has been afebrile since admission CT A/P 08/02 with indeterminate nodule/mass in left hemipelvis measuring up to 2.6 cm Plan for IR biopsy on 08/09 UA, RVP, CMV/EBV, enteric stool panel negative 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 Blood culture NGTD Pouchoscopy 08/03 with healthy j-pouch, one polyp in pre-pouch ileum removed with cold biopsy forceps J pouch biopsy negative for dysplasia Polyp biopsy negative for dysplasia Transplant ID consulted for further infectious work-up, additional testing ordered and pending C diff initially not sent d/t history of total proctocolectomy but send on 08/05 after review of literature showed case studies of patients with sone remnants of small bowel could still get infection C diff negative Imodium, fiber started 08/07 CRS consulted to evaluate for possible J pouch dysfunction Agree with infectious testing and anti-motility agent if negative No further intervention recommended May consider switching Cellcept to Myfortic if other infectious testing is negative May also need to be referred to outpatient GI motility clinic Anemia of Chronic Disease Baseline hgb ~8-10 Hgb currently stable Iron stores replete Monitor CBC daily and transfuse for Hgb <7 Nutrition: DIET REGULAR Prophylaxis: DVT: SCDs 81 mg ASA - held on admission Infectious: PCP prophylaxis: bactrim DS CMV prophylaxis: Valcyte Discharge Social work consulted Expected discharge date: ~08/09 following IR biopsy Discharge to: home Fall Risk: Assessed for patient fall risk and discussed safety measures during rounding. Complexity. Underweight, Body mass index is 16.61 kg/m . - Monitor weight. Follow up with PCP. Malnutrition - Moderate Protein-Calorie Malnutrition (POA) (08/04/2024 10:00 AM) secondary to Chronic Illness (08/04/2024 10:00 AM) - Reviewed and agree with registered account administrator's recommendations. Wound Documentation Any conditions listed below are present on admission unless otherwise specified. . Immunosuppression drug levels are being reviewed on a daily basis and appropriate dose changes are made based on these levels. The plan of care was discussed with the patient and nursing staff. All questions and concerns addressed. These multidisciplinary rounds were represented by transplant surgery including attending surgeon, fellow, advance practice provider and/or resident, transplant pharmacy, discharge planning and nursing. Cici Key PA-C Cosigned by CHAN Aguilar at 08/07/2024 3:45 PM EDT Associated attestation - Jonny Barriga MBBS - 08/07/2024 3:45 PM EDT I, CHAN Aguilar, have independently seen and examined the patient on 08/07/2024. I havereviewed the labs, discussed the patient with the fellow/resident/STEPHANIE and formulated the plan of care, as outlined in their note. I provided the substantial portion of care for this patient. I have evaluated the daily immunosuppression levels and graft function and made the adjustments reflected in the note. Clinical Impression: s/p OLT 05/25/24; IPAA- protocolectomy in the past Graft Function: Good graft function Assessment and Plan: - Continues to have loose stools - Healthy J pouch on pouchoscopy - parasite testing awaited - if negative- increase imodium / add second line / switch to myfortic - IR biopsy of pelvic node on Thursday Immunosuppression: Tac 2 mg bid MMF 500 mg bid Pred 5 mg OD CHAN Aguilar * Luanne Georges MD - 08/06/2024 3:44 PM EDT TRANSPLANT SURGERY IMMUNOSUPPRESSION/ PROGRESS NOTE: Date of Service: 08/06/2024 Admit Date: 08/01/2024 Date of last transplant: 05/25/24 Surgery Post-op Days: s/p SUBJECTIVE / INTERVAL UPDATE Patient resting in bed. No acute overnight events. Still having frequent BMs and very loose stools,no fevers since admission although he is approaching his baseline description of chronic diarrhea for years. Will fold in antidiarrheals after full infectious work-up is negative (patient has trialedanti-diarrheals before but does not have set home regimen at this time), and have engaged CRS in order to see if his complaints of chronic diarrhea, which predated his transplant, might be a functionof his IPAA/any additional workup/procedures possible for symptom relief and to reduce the chance of unnecessary future work- ups given his lifelong immunosuppressed status as a liver transplant patient. Dr. Joiner has followed him for the same problem pre-transplant (remotely). OBJECTIVE: BP 122/82 (BP Location: Left arm, BP Position: Sitting) Pulse 97 Temp 98.2 F (36.8 C) (Oral) Resp 16 Ht 1.676 m (5' 6) Wt 46.7 kg (102 lb 14.4 oz) SpO2 98% BMI 16.61 kg/m Smoking Status Never Intake/Output Summary (Last 24 hours) at 08/06/2024 1544 Last data filed at 08/06/2024 0835 Gross per 24 hour Intake 240 ml Output -- Net 240 ml Physical Exam: General: no acute distress Neuro: alert and oriented x 3 Cardiovascular: regular rate and rhythm, no murmurs, rubs, gallops Pulmonary: unlabored on RA Abdomen: soft, mildly distended, well healed incision Extremities: warm and well perfused Skin: no lesions Lines: PIV CENTRAL LINES: Central Line Indications: No line currently in place PMH/PSH/ROS: Refer to H&P Medications: Refer to MAR Labs: Lab Results Component Value Date WBC 4.46 08/06/2024 HGB 11.4 (L) 08/06/2024 HCT 34.7 (L) 08/06/2024 PLATELET 400 (H) 08/06/2024 MCV 97.2 (H) 08/06/2024 Lab Results Component Value Date SODIUM 140 08/06/2024 POTASSIUM 4.2 08/06/2024 CHLORIDE 105 08/06/2024 CO2 25 08/06/2024 BUN 27 (H) 08/06/2024 CREATSERUM 0.73 08/06/2024 GLUCOSE 88 08/06/2024 Lab Results Component Value Date ALT 49 08/06/2024 AST 22 08/06/2024 GGT 210 08/01/2024 ALKPHOS 326 (H) 08/06/2024 BILITOTAL 0.3 08/06/2024 BILIDIRECT 0.1 08/06/2024 Lab Results Component Value Date TACROLIMUS 6.1 08/06/2024 TACROLIMUS 5.9 08/05/2024 TACROLIMUS 11.8 08/04/2024 ] ASSESSMENT/PLAN Jc Dunaway is a 59 y.o. 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 Re-admitted for fevers of unknown origin and diarrhea. Immunosuppression: tacrolimus: 2 mg BID (Trough goal 7-9) - reduced 08/04 mycophenolate mofetil: 500 mg bid prednisone: 5 mg daily Serology/Immunology CMV status D+/R- Valcyte prophylaxis for 3 months EBV D+/R+ Toxo IgG - Donor with risk criteria no Donor HCV Ab -/MYLA - Donor Hep B cAB positive Entecavir Graft Function Bili stable, AST/ALT/ALP elevated Ursodiol 600 mg started MRCP scheduled for 08/05 Hepatology following Immunosuppression as outlined above Liver US 05/30 with patent transplant vasculature with normal direction of flow Continued Entecavir for donor Hep B cAB positive Fevers, unknown origin Diarrhea Hx of colon cancer s/p total proctocolectomy and loop ileostomy 2020 Reported Tmax 103 at home, has been afebrile since admission CT A/P 08/02 with indeterminate nodule/mass in left hemipelvis measuring up to 2.6 cm Plan for IR biopsy on 08/09 UA, RVP, CMV/EBV, enteric stool panel negative 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 Blood culture NGTD Pouchoscopy 08/03 with healthy j-pouch, one polyp in pre-pouch ileum removed with cold biopsy forceps J pouch biopsy negative for dysplasia Polyp biopsy negative for dysplasia Transplant ID consulted for further infectious work-up C diff initially not sent d/t history of total proctocolectomy but send on 08/05 after review of literature showed case studies of patients with sone remnants of small bowel could still get infection May need to be referred to outpatient GI motility clinic if above workup is negative Anemia of chronic disease Baseline hgb ~8-10 Hgb currently stable Iron stores replete Monitor CBC daily and transfuse for Hgb <7 Acute post-operative pain Adequately controlled on intermittent narcotic Nutrition: DIET REGULAR Prophylaxis: DVT: SCDs 81 mg ASA - held on admission Infectious: PCP prophylaxis: bactrim DS CMV prophylaxis: Valcyte Discharge PT/OT consulted Social work consulted Expected discharge date: TBD pending clinical improvement Discharge to: home Fall Risk: Assessed for patient fall risk and discussed safety measures during rounding. Complexity. Underweight, Body mass index is 16.61 kg/m . - Monitor weight. Follow up with PCP. Malnutrition - Moderate Protein-Calorie Malnutrition (POA) (08/04/2024 10:00 AM) secondary to Chronic Illness (08/04/2024 10:00 AM) - Reviewed and agree with registered account administrator's recommendations. Wound Documentation Any conditions listed below are present on admission unless otherwise specified. . Immunosuppression drug levels are being reviewed on a daily basis and appropriate dose changes are made based on these levels. The plan of care was discussed with the patient and nursing staff. All questions and concerns addressed. These multidisciplinary rounds were represented by transplant surgery including attending surgeon, fellow, advance practice provider and/or resident, transplant pharmacy, discharge planning and nursing. Luanne Georges MD PhD Department of Surgery PGY4 #[id number] * Chaparrita Cesar MD - 08/06/2024 7:26 AM EDT Hepatobiliary Follow-Up Consult Note IDENTIFYING DATA/REASON FOR CONSULTATION PATIENT: Jc Dunaway ADMIT DATE: 08/01/2024 TIME OF EVALUATION: 08/06/2024 7:26 AM HOSPITAL STAY: LOS: 5 days REFERRING PHYSICIAN: Ba Boland MD, P* REASON FOR CONSULTATION: s/p OLT SUBJECTIVE/INTERVAL HISTORY: No acute events HISTORY OF PRESENT ILLNESS: Jc Dunaway is a 59 y.o. 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 We have been consulted regarding s/p OLT. Fall Risk: Assessed for patient fall risk and discussed safety measures during rounding. Patient has a past medical history of UC s/p TPC/IPAA with pouch-rectal anastomosis, and PSC cirrhosis s/p DCD OLT 05/25/24 (D+/R-). With RNY choledochojejunostomy. Donor HBcAb positive. 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 Patient presents with fevers, Tmax 103F. Also endorsing new diarrhea over last 3 weeks, in additionto rectal pain and hematochezia. Does have known h/o hemorrhoids. States he was treated for pouchitis previously but was not diagnosed based on scope, just empirically. 08/03: pouchoscopy, unremarkable PAST MEDICAL, SURGICAL, FAMILY & SOCIAL HISTORY: Past Medical History: Diagnosis Date Cirrhosis of liver not due to alcohol 03/15/2024 Colon cancer 10/2020 Primary sclerosing cholangitis Ulcerative colitis diagnosed in the 80s- no surgery Past Surgical History: Procedure Laterality Date LAPAROTOMY EXPLORATORY N/A 06/03/2024 Laterality: N/A; Surgeon: Dalia Thomas MD; Location: [facility] MAIN OR LIVER TRANSPLANT, ORTHOTOPIC N/A 05/25/2024 Laterality: N/A; Surgeon: Dalia Thomas MD; Location: [facility] MAIN OR EXAM UNDER ANESTHESIA ANORECTAL N/A 02/28/2022 Laterality: N/A; Surgeon: Miroslava Joiner MD; Location: [facility] PERIOP ENDOSCOPY SMALL INTESTINE POUCH DIAGNOSTIC N/A 02/28/2022 Laterality: N/A; Surgeon: Miroslava Joiner MD; Location: [facility] PERIOP LOOP ILEOSTOMY CLOSURE N/A 06/04/2021 Laterality: N/A; Surgeon: Miroslava Joiner MD; Location: [facility] MAIN OR ENDOSCOPY SMALL INTESTINE POUCH DIAGNOSTIC N/A 04/22/2021 Laterality: N/A; Surgeon: Mirolsava Joiner MD; [facility] COLOPROCTECTOMY TOTAL W/ LOOP ILEOSTOMY OR CREATION ILEAL RESERVOIR LAPAROSCOPIC N/A 02/12/2021 Laterality: N/A; Surgeon: Miroslava Joiner MD; Location: [facility] MAIN OR SIGMOIDOSCOPY DIAGNOSTIC N/A 02/04/2021 Laterality: N/A; Surgeon: Miroslava Joiner MD; [facility] HIP REPLACEMENT Left 2005 COLONOSCOPY DIAGNOSTIC Nov 20202001 Family History Problem Relation Age of Onset Colorectal Cancer Neg Hx Social History Socioeconomic History Marital status: Tobacco Use Smoking status: Never Smokeless tobacco: Never Vaping Use Vaping status: Never Used Substance and Sexual Activity Alcohol use: Not Currently Drug use: Not Currently Social Drivers of Health Financial Resource Strain: Low Risk (05/26/2024) Overall Financial Resource Strain (CARDIA) Difficulty of Paying Living Expenses: Not hard at all Food Insecurity: No Food Insecurity (08/01/2024) NCSS - Food Insecurity Worried About Running Out of Food in the Last Year: No Ran Out of Food in the Last Year: No Transportation Needs: No Transportation Needs (08/01/2024) NCSS - Transportation Lack of Transportation: No Personal Safety: Not At Risk (08/01/2024) NCSS - Interpersonal Safety Feels Physically and Emotionally Safe: Yes Physically Hurt by Someone: No Humiliated or Emotionally Abused by Someone: No Housing Stability: Not At Risk (08/01/2024) NCSS - Housing/Utilities Has Housing: Yes Worried About Losing Housing: No Unable to Get Utilities: No MEDICATIONS: SCHEDULED: Entecavir (BARACLUDE) tablet 0.5 mg, 0.5 mg, Daily Mycophenolate mofetil (CELLCEPT) capsule 500 mg, 500 mg, bid predniSONE (DELTASONE) tablet 5 mg, 5 mg, Daily Sulfamethoxazole-trimethoprim (BACTRIM DS) 800-160 MG per tablet 1 tablet, 1 tablet, Q24H Tacrolimus (PROGRAF) capsule 2 mg, 2 mg, Q12HNS ursodiol (ACTIGALL) capsule 600 mg, 600 mg, BID valGANciclovir (valCYTE) tablet 450 mg, 450 mg, BID FLUIDS/DRIPS: PRNs: ALLERGIES: He has no known allergies. REVIEW OF SYSTEMS; otherwise full ROS was reviewed and was otherwise negative Review of Systems Constitutional: Negative. HENT: Negative. Cardiovascular: Negative. Musculoskeletal: Negative. Psychiatric: Negative. Lymph/Heme: Negative. PHYSICAL EXAM: Temp: [97.6 F (36.4 C)-98.9 F (37.2 C)] 98.1 F (36.7 C) Pulse (Heart Rate): [84-97] 84 Resp Rate: [16-18] 16 BP: (102-118)/(60-74) 102/60 O2 Sat (%): [97 %-99 %] 98 % I/O last 3 completed shifts: In: 597 [P.O.:597] Out: 250 [Urine:250] Oxygen Therapy: Oxygen Therapy O2 Sat (%): 98 % O2 Device: room air Constitutional: Breathing easily, in no acute distress. Does not appear cachectic. HEENT: PER, neg scleral icterus, normal appearing oropharynx, no appreciable cervical LAD Cardiovascular: Normal rate and regular rhythm. Pulmonary/Chest: Breath sounds normal. Abdominal: Soft. NT/ND. No appreciable HS. Extrem: No appreciable edema. No gross focal motor deficits in distal extrem. Neurological: AOx3. Skin: Does not appear jaundiced. LABS AND IMAGING: Recent Results (from the past 24 hours) CHEM 7 (LYTES,BUN,CREA,GLUC) Collection Time: 08/06/24 6:24 AM Result Value Ref Range Sodium 140 135 - 145 mmol/L Potassium 4.2 3.5 - 5.0 mmol/L Chloride 105 98 - 108 mmol/L CO2 25 21 - 31 mmol/L Glucose 88 Nonfastin-179 mg/dL; Fastin-99 mg/dL BUN 27 (H) 7 - 25 mg/dL Creatinine 0.73 0.70 - 1.30 mg/dL Bun/Crea Ratio 37 Osmolality (Calculated) 297 278 - 305 mOsm/kg Anion Gap 14 7 - 17 mmol/L eGFR, CKD-EPI, Male >90 >=60 mL/min/1.73m2 PHOSPHATE, INORGANIC Collection Time: 08/06/24 6:24 AM Result Value Ref Range Phosphorous 3.0 2.2 - 4.6 mg/dL MAGNESIUM Collection Time: 08/06/24 6:24 AM Result Value Ref Range Magnesium 1.7 1.6 - 2.6 mg/dL CALCIUM Collection Time: 08/06/24 6:24 AM Result Value Ref Range Calcium 8.9 8.6 - 10.5 mg/dL HEPATIC FUNCTION PANEL Collection Time: 08/06/24 6:24 AM Result Value Ref Range Albumin 3.7 3.5 - 5.0 g/dL Bilirubin Direct 0.1 <0.3 mg/dL Bilirubin Total 0.3 <1.5 mg/dL ALP 326 (H) 32 - 126 U/L ALT 49 10 - 52 U/L AST 22 10 - 39 U/L Total Protein 6.4 6.4 - 8.3 g/dL CBC AND ELECTRONIC DIFF Collection Time: 08/06/24 6:24 AM Result Value Ref Range WBC Count 4.46 3.73 - 10.10 K/uL RBC Count 3.57 (L) 4.38 - 5.83 M/uL Hemoglobin 11.4 (L) 13.4 - 16.8 g/dL Hematocrit 34.7 (L) 39.6 - 48.8 % Mean Cell Volume 97.2 (H) 79.0 - 94.5 fL Mean Cell Hgb 31.9 26.1 - 33.3 pg Mean Cell Hgb Conc 32.9 31.9 - 36.5 g/dL RBC Distribution 16.7 (H) 10.9 - 14.3 % Platelet Count 400 (H) 146 - 337 K/uL Mean Platelet Volume 9.8 8.7 - 12.3 fL Other Labs Reviewed. Imaging 08/02/24 - CT Abdomen/Pelvis without contrast 1. No acute findings in the abdomen and pelvis. 2. Indeterminate nodule/mass in the left hemipelvis measuring up to 2.6 cm. ASSESSMENT & RECOMMENDATIONS: Jc Dunaway is a 59 y.o. 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 We have been consulted regarding s/p OLT. IMPRESSION: PSC cirrhosis s/p DCD OLT 05/25/24 (D+/R-) with RNY choledochojejunostomy Donor HBcAb positive Hx UC s/p TPC/IPAA with pouch-rectal anastomosis Hx bile leak, bowel obstruction Diarrhea, fevers, hematochezia IS: -Prednisone 5 mg daily -MMF 500 mg BID -Tacrolimus 2 mg BID (trough 6.1, 08/06) RECOMMENDATIONS: - Continue current tacro dosing -New fevers, Tmax 103F. With new onset diarrhea over the last 3 weeks (enteric panel negative), rectal pain, and hematochezia. Pouchoscopy 08/03, unremarkable. Bx negative. -Still with low grade fevers, [place] intermittently working. 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 -CT A/P with no evidence of infx, did have indeterminate nodule/mass in left hemipelvis. Pending IRbx of lesion. -MRCP with mild to moderate biliary dilation though LFTs are downtrending. Monitor over the weekendbut may need PTC if they rise again. -Continue entecavir ongoing for HBV ppx -IS otherwise as above; antiviral/antibacterial ppx per protocol -Plan of care discussed with transplant surgery -Will continue to follow. Chaparrita Cesar MD [employer] Teacher of Internal Medicine Division of Gastroenterology, Hepatology, and Nutrition Pager: [phone] * Marcus Zhu MD, PhD - 08/05/2024 12:30 PM EDT Hepatobiliary Follow-Up Consult Note IDENTIFYING DATA/REASON FOR CONSULTATION PATIENT: Jc Dunaway ADMIT DATE: 08/01/2024 TIME OF EVALUATION: 08/05/2024 12:30 PM HOSPITAL STAY: LOS: 4 days REFERRING PHYSICIAN: Ba Boland MD, P* REASON FOR CONSULTATION: s/p OLT SUBJECTIVE/INTERVAL HISTORY: No acute events HISTORY OF PRESENT ILLNESS: Jc Dunaway is a 59 y.o. 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 We have been consulted regarding s/p OLT. Fall Risk: Assessed for patient fall risk and discussed safety measures during rounding. Patient has a past medical history of UC s/p TPC/IPAA with pouch-rectal anastomosis, and PSC cirrhosis s/p DCD OLT 05/25/24 (D+/R-). With RNY choledochojejunostomy. Donor HBcAb positive. 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 Patient presents with fevers, Tmax 103F. Also endorsing new diarrhea over last 3 weeks, in additionto rectal pain and hematochezia. Does have known h/o hemorrhoids. States he was treated for pouchitis previously but was not diagnosed based on scope, just empirically. 08/03: pouchoscopy, unremarkable PAST MEDICAL, SURGICAL, FAMILY & SOCIAL HISTORY: Past Medical History: Diagnosis Date Cirrhosis of liver not due to alcohol 03/15/2024 Colon cancer 10/2020 Primary sclerosing cholangitis Ulcerative colitis diagnosed in the 80s- no surgery Past Surgical History: Procedure Laterality Date LAPAROTOMY EXPLORATORY N/A 06/03/2024 Laterality: N/A; Surgeon: Dalia Thomas MD; Location: [facility] MAIN OR LIVER TRANSPLANT, ORTHOTOPIC N/A 05/25/2024 Laterality: N/A; Surgeon: Dalia Thomas MD; Location: [facility] MAIN OR EXAM UNDER ANESTHESIA ANORECTAL N/A 02/28/2022 Laterality: N/A; Surgeon: Miroslava Joiner MD; Location: [facility] PERIOP ENDOSCOPY SMALL INTESTINE POUCH DIAGNOSTIC N/A 02/28/2022 Laterality: N/A; Surgeon: Miroslava Joiner MD; Location: [facility] PERIOP LOOP ILEOSTOMY CLOSURE N/A 06/04/2021 Laterality: N/A; Surgeon: Miroslava Joiner MD; Location: [facility] MAIN OR ENDOSCOPY SMALL INTESTINE POUCH DIAGNOSTIC N/A 04/22/2021 Laterality: N/A; Surgeon: Miroslava Joiner MD; Location: [facility] ENDOSCOPY COLOPROCTECTOMY TOTAL W/ LOOP ILEOSTOMY OR CREATION ILEAL RESERVOIR LAPAROSCOPIC N/A 02/12/2021 Laterality: N/A; Surgeon: Miroslava Joiner MD; Location: [facility] MAIN OR SIGMOIDOSCOPY DIAGNOSTIC N/A 02/04/2021 Laterality: N/A; Surgeon: Miroslava Joiner MD; Location: [facility] ENDOSCOPY HIP REPLACEMENT Left 2005 COLONOSCOPY DIAGNOSTIC Nov 20202001 Family History Problem Relation Age of Onset Colorectal Cancer Neg Hx Social History Socioeconomic History Marital status: Tobacco Use Smoking status: Never Smokeless tobacco: Never Vaping Use Vaping status: Never Used Substance and Sexual Activity Alcohol use: Not Currently Drug use: Not Currently Social Drivers of Health Financial Resource Strain: Low Risk (05/26/2024) Overall Financial Resource Strain (CARDIA) Difficulty of Paying Living Expenses: Not hard at all Food Insecurity: No Food Insecurity (08/01/2024) NCSS - Food Insecurity Worried About Running Out of Food in the Last Year: No Ran Out of Food in the Last Year: No Transportation Needs: No Transportation Needs (08/01/2024) NCSS - Transportation Lack of Transportation: No Personal Safety: Not At Risk (08/01/2024) NCSS - Interpersonal Safety Feels Physically and Emotionally Safe: Yes Physically Hurt by Someone: No Humiliated or Emotionally Abused by Someone: No Housing Stability: Not At Risk (08/01/2024) NCSS - Housing/Utilities Has Housing: Yes Worried About Losing Housing: No Unable to Get Utilities: No MEDICATIONS: SCHEDULED: Entecavir (BARACLUDE) tablet 0.5 mg, 0.5 mg, Daily Mycophenolate mofetil (CELLCEPT) capsule 500 mg, 500 mg, bid predniSONE (DELTASONE) tablet 5 mg, 5 mg, Daily Sulfamethoxazole-trimethoprim (BACTRIM DS) 800-160 MG per tablet 1 tablet, 1 tablet, Q24H Tacrolimus (PROGRAF) capsule 2 mg, 2 mg, Q12HNS ursodiol (ACTIGALL) capsule 600 mg, 600 mg, BID valGANciclovir (valCYTE) tablet 450 mg, 450 mg, BID FLUIDS/DRIPS: PRNs: ALLERGIES: He has no known allergies. REVIEW OF SYSTEMS; otherwise full ROS was reviewed and was otherwise negative Review of Systems Constitutional: Negative. HENT: Negative. Cardiovascular: Negative. Musculoskeletal: Negative. Psychiatric: Negative. Lymph/Heme: Negative. PHYSICAL EXAM: Temp: [97.6 F (36.4 C)-98.9 F (37.2 C)] 98.9 F (37.2 C) Pulse (Heart Rate): [83-98] 90 Resp Rate: [16-18] 18 BP: (115-132)/(68-70) 115/68 O2 Sat (%): [98 %-99 %] 98 % I/O last 3 completed shifts: In: 1410 [P.O.:1410] Out: 200 [Urine:200] Oxygen Therapy: Oxygen Therapy O2 Sat (%): 98 % O2 Device: (P) room air Constitutional: Breathing easily, in no acute distress. Does not appear cachectic. HEENT: PER, neg scleral icterus, normal appearing oropharynx, no appreciable cervical LAD Cardiovascular: Normal rate and regular rhythm. Pulmonary/Chest: Breath sounds normal. Abdominal: Soft. NT/ND. No appreciable HS. Extrem: No appreciable edema. No gross focal motor deficits in distal extrem. Neurological: AOx3. Skin: Does not appear jaundiced. LABS AND IMAGING: Recent Results (from the past 24 hours) CHEM 7 (LYTES,BUN,CREA,GLUC) Collection Time: 08/05/24 6:04 AM Result Value Ref Range Sodium 135 135 - 145 mmol/L Potassium 4.2 3.5 - 5.0 mmol/L Chloride 104 98 - 108 mmol/L CO2 22 21 - 31 mmol/L Glucose 91 Nonfastin-179 mg/dL; Fastin-99 mg/dL BUN 22 7 - 25 mg/dL Creatinine 0.77 0.70 - 1.30 mg/dL Bun/Crea Ratio 29 Osmolality (Calculated) 287 278 - 305 mOsm/kg Anion Gap 13 7 - 17 mmol/L eGFR, CKD-EPI, Male >90 >=60 mL/min/1.73m2 PHOSPHATE, INORGANIC Collection Time: 08/05/24 6:04 AM Result Value Ref Range Phosphorous 2.7 2.2 - 4.6 mg/dL MAGNESIUM Collection Time: 08/05/24 6:04 AM Result Value Ref Range Magnesium 1.5 (L) 1.6 - 2.6 mg/dL CALCIUM Collection Time: 08/05/24 6:04 AM Result Value Ref Range Calcium 8.6 8.6 - 10.5 mg/dL HEPATIC FUNCTION PANEL Collection Time: 08/05/24 6:04 AM Result Value Ref Range Albumin 3.9 3.5 - 5.0 g/dL Bilirubin Direct 0.1 <0.3 mg/dL Bilirubin Total 0.4 <1.5 mg/dL ALP 396 (H) 32 - 126 U/L ALT 75 (H) 10 - 52 U/L AST 45 (H) 10 - 39 U/L Total Protein 6.8 6.4 - 8.3 g/dL CBC AND ELECTRONIC DIFF Collection Time: 08/05/24 6:04 AM Result Value Ref Range WBC Count 4.63 3.73 - 10.10 K/uL RBC Count 3.57 (L) 4.38 - 5.83 M/uL Hemoglobin 11.1 (L) 13.4 - 16.8 g/dL Hematocrit 34.5 (L) 39.6 - 48.8 % Mean Cell Volume 96.6 (H) 79.0 - 94.5 fL Mean Cell Hgb 31.1 26.1 - 33.3 pg Mean Cell Hgb Conc 32.2 31.9 - 36.5 g/dL RBC Distribution 16.5 (H) 10.9 - 14.3 % Platelet Count 367 (H) 146 - 337 K/uL Mean Platelet Volume 10.1 8.7 - 12.3 fL DIFF STATUS Electronic Differential Segs + Bands Auto 71.5 % Immature Grans % 1.7 % Lymphocyte % Auto 15.1 % Monocyte % Auto 9.5 % Eosinophil % Auto 1.1 % Basophil % Auto 1.1 % Nucleated RBC 0.0 <=0.2 /100 WBC Segs + Bands,Absolute Auto 3.31 1.57 - 6.19 K/uL Immature Grans Absolute 0.08 (H) <=0.07 K/uL Abs Lymph Auto 0.70 (L) 0.83 - 3.57 K/uL Abs Tama Auto 0.44 0.24 - 0.93 K/uL Abs Eos Auto 0.05 0.00 - 0.48 K/uL Abs Baso Auto 0.05 0.00 - 0.09 K/uL TACROLIMUS LEVEL, TROUGH (PRE DRUG LEVEL) Collection Time: 08/05/24 6:04 AM Result Value Ref Range Tacrolimus, Trough 5.9 Bone Marrow Transplant: 5.0-15.0 Kidney/Pancreatic Transplant: 0 to 3 months: 8.0-10.0, 3 to 12 months: 6.0-8.0, >12 months: 4.0- 6.0 ng/mL Other Labs Reviewed. Imaging 08/02/24 - CT Abdomen/Pelvis without contrast 1. No acute findings in the abdomen and pelvis. 2. Indeterminate nodule/mass in the left hemipelvis measuring up to 2.6 cm. ASSESSMENT & RECOMMENDATIONS: Jc Dunaway is a 59 y.o. 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 We have been consulted regarding s/p OLT. 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 With new onset diarrhea over the last 3 weeks (enteric panel negative), rectal pain, and hematochezia. Pouchoscopy 08/03, unremarkable. Bx negative. -Still with low grade fevers, [place] and has been intermittently working. 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 -CT A/P with no evidence of infx, did have indeterminate nodule/mass in left hemipelvis. Pending IRbx of lesion. -LFTs bumped today, concern for biliary process. Does have RNY choledocho-j, so MRCP pending right now -Continue entecavir ongoing for HBV ppx -IS otherwise as above; antiviral/antibacterial ppx per protocol -Plan of care discussed with transplant surgery -Will continue to follow. Marcus Zhu MD, PhD International Trade Teacher of Clinical Medicine [facility] Division of Gastroenterology, Hepatology and Nutrition * Perlita Armijo, WATER TREATMENT OPERATOR-FILTER TIP CATCHER - 08/04/2024 11:21 AM EDT Hepatobiliary Follow-Up Consult Note IDENTIFYING DATA/REASON FOR CONSULTATION PATIENT: Jc Dunaway ADMIT DATE: 08/01/2024 TIME OF EVALUATION: 08/04/2024 11:21 AM HOSPITAL STAY: LOS: 3 days REFERRING PHYSICIAN: Sonya Treviño MD, * REASON FOR CONSULTATION: s/p OLT SUBJECTIVE/INTERVAL HISTORY: No acute events HISTORY OF PRESENT ILLNESS: Jc Dunaway is a 59 y.o. 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 We have been consulted regarding s/p OLT. Fall Risk: Assessed for patient fall risk and discussed safety measures during rounding. Patient has a past medical history of UC s/p TPC/IPAA with pouch-rectal anastomosis, and PSC cirrhosis s/p DCD OLT 05/25/24 (D+/R-). With RNY choledochojejunostomy. Donor HBcAb positive. 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 Patient presents with fevers, Tmax 103F. Also endorsing new diarrhea over last 3 weeks, in additionto rectal pain and hematochezia. Does have known h/o hemorrhoids. States he was treated for pouchitis previously but was not diagnosed based on scope, just empirically. 08/03: pouchoscopy, unremarkable PAST MEDICAL, SURGICAL, FAMILY & SOCIAL HISTORY: Past Medical History: Diagnosis Date Cirrhosis of liver not due to alcohol 03/15/2024 Colon cancer 10/2020 Primary sclerosing cholangitis Ulcerative colitis diagnosed in the 80s- no surgery Past Surgical History: Procedure Laterality Date LAPAROTOMY EXPLORATORY N/A 06/03/2024 Laterality: N/A; Surgeon: Dalia Thomas MD; Location: [facility] MAIN OR LIVER TRANSPLANT, ORTHOTOPIC N/A 05/25/2024 Laterality: N/A; Surgeon: Dalia Thomas MD; Location: [facility] MAIN OR EXAM UNDER ANESTHESIA ANORECTAL N/A 02/28/2022 Laterality: N/A; Surgeon: Miroslava Joiner MD; Location: [facility] PERIOP ENDOSCOPY SMALL INTESTINE POUCH DIAGNOSTIC N/A 02/28/2022 Laterality: N/A; Surgeon: Miroslava Joiner MD; Location: [facility] PERIOP LOOP ILEOSTOMY CLOSURE N/A 06/04/2021 Laterality: N/A; Surgeon: Miroslava Joiner MD; Location: [facility] MAIN OR ENDOSCOPY SMALL INTESTINE POUCH DIAGNOSTIC N/A 04/22/2021 Laterality: N/A; Surgeon: Miroslava Joiner MD; Location: [facility] ENDOSCOPY COLOPROCTECTOMY TOTAL W/ LOOP ILEOSTOMY OR CREATION ILEAL RESERVOIR LAPAROSCOPIC N/A 02/12/2021 Laterality: N/A; Surgeon: Miroslava Joiner MD; Location: [facility] MAIN OR SIGMOIDOSCOPY DIAGNOSTIC N/A 02/04/2021 Laterality: N/A; Surgeon: Miroslava Joiner MD; Location: [facility] ENDOSCOPY HIP REPLACEMENT Left 2006 COLONOSCOPY DIAGNOSTIC Nov 20202001 Family History Problem Relation Age of Onset Colorectal Cancer Neg Hx Social History Socioeconomic History Marital status: Tobacco Use Smoking status: Never Smokeless tobacco: Never Vaping Use Vaping status: Never Used Substance and Sexual Activity Alcohol use: Not Currently Drug use: Not Currently Social Drivers of Health Financial Resource Strain: Low Risk (05/26/2024) Overall Financial Resource Strain (CARDIA) Difficulty of Paying Living Expenses: Not hard at all Food Insecurity: No Food Insecurity (08/01/2024) NCSS - Food Insecurity Worried About Running Out of Food in the Last Year: No Ran Out of Food in the Last Year: No Transportation Needs: No Transportation Needs (08/01/2024) NCSS - Transportation Lack of Transportation: No Personal Safety: Not At Risk (08/01/2024) NCSS - Interpersonal Safety Feels Physically and Emotionally Safe: Yes Physically Hurt by Someone: No Humiliated or Emotionally Abused by Someone: No Housing Stability: Not At Risk (08/01/2024) NCSS - Housing/Utilities Has Housing: Yes Worried About Losing Housing: No Unable to Get Utilities: No MEDICATIONS: SCHEDULED: Entecavir (BARACLUDE) tablet 0.5 mg, 0.5 mg, Daily Mycophenolate mofetil (CELLCEPT) capsule 500 mg, 500 mg, bid predniSONE (DELTASONE) tablet 5 mg, 5 mg, Daily Sulfamethoxazole-trimethoprim (BACTRIM DS) 800-160 MG per tablet 1 tablet, 1 tablet, Q24H Tacrolimus (PROGRAF) capsule 3 mg, 3 mg, Q12HNS valGANciclovir (valCYTE) tablet 450 mg, 450 mg, BID FLUIDS/DRIPS: PRNs: ALLERGIES: He has no known allergies. REVIEW OF SYSTEMS; otherwise full ROS was reviewed and was otherwise negative Review of Systems Constitutional: Negative. HENT: Negative. Cardiovascular: Negative. Musculoskeletal: Negative. Psychiatric: Negative. Lymph/Heme: Negative. PHYSICAL EXAM: Temp: [97.8 F (36.6 C)-99.8 F (37.7 C)] 98.4 F (36.9 C) Pulse (Heart Rate): [77-97] 97 Resp Rate: [14-19] 17 BP: (97-127)/(58-83) 118/70 O2 Sat (%): [98 %-99 %] 98 % I/O last 3 completed shifts: In: 1110 [P.O.:960; I.V.:150] Out: - Oxygen Therapy: Oxygen Therapy O2 Sat (%): 98 % O2 Device: room air Constitutional: Breathing easily, in no acute distress. Does not appear cachectic. HEENT: PER, neg scleral icterus, normal appearing oropharynx, no appreciable cervical LAD Cardiovascular: Normal rate and regular rhythm. Pulmonary/Chest: Breath sounds normal. Abdominal: Soft. NT/ND. No appreciable HS. Extrem: No appreciable edema. No gross focal motor deficits in distal extrem. Neurological: AOx3. Skin: Does not appear jaundiced. LABS AND IMAGING: Recent Results (from the past 24 hours) POUCHOSCOPY Collection Time: 08/03/24 1:20 PM Result Value Ref Range BSA 1.53 m2 CHEM 7 (LYTES,BUN,CREA,GLUC) Collection Time: 08/04/24 6:25 AM Result Value Ref Range Sodium 136 135 - 145 mmol/L Potassium 4.9 3.5 - 5.0 mmol/L Chloride 105 98 - 108 mmol/L CO2 22 21 - 31 mmol/L Glucose 92 Nonfastin-179 mg/dL; Fastin-99 mg/dL BUN 23 7 - 25 mg/dL Creatinine 0.94 0.70 - 1.30 mg/dL Bun/Crea Ratio 24 Osmolality (Calculated) 290 278 - 305 mOsm/kg Anion Gap 14 7 - 17 mmol/L eGFR, CKD-EPI, Male >90 >=60 mL/min/1.73m2 PHOSPHATE, INORGANIC Collection Time: 08/04/24 6:25 AM Result Value Ref Range Phosphorous 3.4 2.2 - 4.6 mg/dL MAGNESIUM Collection Time: 08/04/24 6:25 AM Result Value Ref Range Magnesium 1.7 1.6 - 2.6 mg/dL CALCIUM Collection Time: 08/04/24 6:25 AM Result Value Ref Range Calcium 9.0 8.6 - 10.5 mg/dL HEPATIC FUNCTION PANEL Collection Time: 08/04/24 6:25 AM Result Value Ref Range Albumin 4.0 3.5 - 5.0 g/dL Bilirubin Direct 0.1 <0.3 mg/dL Bilirubin Total 0.4 <1.5 mg/dL ALP 476 (H) 32 - 126 U/L ALT 72 (H) 10 - 52 U/L AST 51 (H) 10 - 39 U/L Total Protein 7.1 6.4 - 8.3 g/dL CBC AND ELECTRONIC DIFF Collection Time: 08/04/24 6:25 AM Result Value Ref Range WBC Count 4.26 3.73 - 10.10 K/uL RBC Count 3.95 (L) 4.38 - 5.83 M/uL Hemoglobin 12.3 (L) 13.4 - 16.8 g/dL Hematocrit 39.8 39.6 - 48.8 % Mean Cell Volume 100.8 (H) 79.0 - 94.5 fL Mean Cell Hgb 31.1 26.1 - 33.3 pg Mean Cell Hgb Conc 30.9 (L) 31.9 - 36.5 g/dL RBC Distribution 16.7 (H) 10.9 - 14.3 % Platelet Count 341 (H) 146 - 337 K/uL Mean Platelet Volume 10.3 8.7 - 12.3 fL DIFF STATUS Electronic Differential Segs + Bands Auto 76.8 % Immature Grans % 0.9 % Lymphocyte % Auto 12.0 % Monocyte % Auto 8.2 % Eosinophil % Auto 0.9 % Basophil % Auto 1.2 % Nucleated RBC 0.0 <=0.2 /100 WBC Segs + Bands,Absolute Auto 3.27 1.57 - 6.19 K/uL Immature Grans Absolute 0.04 <=0.07 K/uL Abs Lymph Auto 0.51 (L) 0.83 - 3.57 K/uL Abs Tama Auto 0.35 0.24 - 0.93 K/uL Abs Eos Auto 0.04 0.00 - 0.48 K/uL Abs Baso Auto 0.05 0.00 - 0.09 K/uL TACROLIMUS LEVEL, TROUGH (PRE DRUG LEVEL) Collection Time: 08/04/24 6:25 AM Result Value Ref Range Tacrolimus, Trough 11.8 Bone Marrow Transplant: 5.0-15.0 Kidney/Pancreatic Transplant: 0 to 3 months: 8.0-10.0, 3 to 12 months: 6.0-8.0, >12 months: 4.0- 6.0 ng/mL Other Labs Reviewed. Imaging 08/02/24 - CT Abdomen/Pelvis without contrast 1. No acute findings in the abdomen and pelvis. 2. Indeterminate nodule/mass in the left hemipelvis measuring up to 2.6 cm. ASSESSMENT & RECOMMENDATIONS: Jc Dunaway is a 59 y.o. 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 We have been consulted regarding s/p OLT. 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 With new onset diarrhea over the last 3 weeks (enteric panel negative), rectal pain, and hematochezia. Pouchoscopy 08/03, unremarkable. Bx pending. -Still with low grade fevers, [place] intermittently [place]. Would consult transplant ID for further atypical infx work-up. 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 -CT A/P with no evidence of infx, did have indeterminate nodule/mass in left hemipelvis. Pending IRbx of lesion. -LFTs bumped today, concern for biliary process. Does have RNY choledocho-j, would obtain MRCP to further evaluate biliary tree and start ursodiol. -Continue entecavir ongoing for HBV ppx -IS otherwise as above; antiviral/antibacterial ppx per protocol -Plan of care discussed with transplant surgery -Will continue to follow. Perlita Armijo APRN-[facility] Transplant Hepatology Nurse Practitioner For contact information (pager/spectralink), please go to [employer] > IM Consult Serv [facility] > [facility] Main Hepatology Consults I have spent 39 minutes in patient care related activities for this patient (chart review, direct patient contact, documentation, communication, and multi- disciplinary rounds). If you have any questions or need any further information, please feel free to contact our consult team. Thank you for allowing us to participate in the care of Jc Dunaway. Cosigned by Marcus Zhu MD, PhD at 08/04/2024 11:39 AM EDT Associated attestation - Marcus Zhu MD, PhD - 08/04/2024 11:39 AM EDT ATTENDING ATTESTATION: I saw and personally examined the patient today, 08/04/2024 . I discussed the findings and therapeutic plan with the advanced practice provider. I agree with the history, physical examination, and medical decisions as outlined in this note. Total time spent on direct patient related care: 42 mins. I personally reviewed previous clinical lab testing, radiologic tests, diagnostic testing (including prior endoscopies and surgical procedures) listed in the note with the following additions: 58 y/o with a hx of PSC cirrhosis s/p DCD OLT 05/25/2024 (D+/R-)/Donor HBcAb pos and RnY admitted for fevers, diarrhea and nausea/vomiting. Prior hospitalization c/b bowel obstruction and bile leak s/p ex lap with cultures with ESBL e coli. Imaging with findings of retroperitoneal mass, pending additional work up.. Pouchoscopy with no significant endoscopic abnormalities, biopsies pending. Liver enzymes continuing to elevate today, consider additional imaging and ultimately may require ERCP - noted Janay en Y anatomy. IS and prophylaxis reviewed, prednisone for PSC, continue current regimen. Remainder per note. Marcus Zhu MD, PhD International Trade Teacher of Clinical Medicine [facility] Gastroenterology, Hepatology, and Nutrition Pager [phone] * Torie Giles, RD - 08/04/2024 10:31 AM EDT NUTRITION ASSESSMENT Nutrition Recommendations and Plan of Care: 1. Regular diet 2. Chocolate Ensure Plus BID (350 kcal, 13 gm protein each) 3. RD to follow and monitor nutritional intake/tolerance, weight changes, labs, skin integrity, andGI function. Jc Munson Emelyn is a 59 y.o. 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 Re-admitted for fevers of unknown origin. Assessment: Patient seen at bedside this morning, screened for hx of malnutrition. He reports that his appetiteand intake have greatly improved since last admission, his sense of taste is returning to normal. At home he has been eating 3 meals per day + snacks between meals and Ensure BID. He is agreeable to resume these while admitted. Endorses 13 lb weight gain since ~May, states he was 90 lbs at previous discharge. Has bedside tablet for meal selections. Encouraged continued strong PO. Diet Order: Current Diet Orders Procedures DIET REGULAR Standing Status: Standing Number of Occurrences: 1 Anthropometrics: Height: 167.6 cm (5' 6), Weight: 48.6 kg (107 lb 3.2 oz) Admission (Dosing) Weight: 48.3 kg (106 lb 8 oz) IBW: 65 kg Body mass index is 17.3 kg/m . Wt Readings from Last 10 Encounters: 08/02/24 48.6 kg (107 lb 3.2 oz) 07/04/24 45.5 kg (100 lb 4.8 oz) 06/20/24 44 kg (97 lb 1.6 oz) 06/15/24 43.7 kg (96 lb 6.4 oz) 06/13/24 42.7 kg (94 lb 1.6 oz) 06/09/24 46.5 kg (102 lb 8.1 oz) 04/14/24 45 kg (99 lb 3.3 oz) 03/29/24 47.2 kg (104 lb 1.6 oz) 03/24/24 46.7 kg (103 lb) 03/24/24 46.7 kg (103 lb) Meds Reviewed: Entecavir 0.5 mg Oral Daily Mycophenolate mofetil 500 mg Oral bid predniSONE 5 mg Oral Daily Sulfamethoxazole-trimethoprim 1 tablet Oral Q24H Tacrolimus 3 mg Oral Q12HNS valGANciclovir 450 mg Oral BID Labs Reviewed: Bun/Creat/Cl/CO2/Glucose: 23/0.94/105/22/92 (08/04 624) WBC/Hgb/Hct/Plts: 4.26/12.3/39.8/341 (08/04 624) Na/K+/Phos/Mg/Ca: 136/4.9/3.4/1.7/9.0 (08/04 624) Physical Exam: Enteral access: None Last Bowel Movement: 08/03/24 Net IO Since Admission: 2,512.28 mL [08/04/24 1032] O2 Device: room air Skin: Kirk Score: 21 Active Wounds: none documented Edema: none documented NFPE: Subcutaneous Fat Loss: Orbital Region (Orbital Fat Pads): moderate Cheek Region (Buccal Fat Pads): mild Upper Arm Region (Triceps): moderate Thoracic and Lumbar Region (Ribs, Lower Back, Midaxillary Line): deferred Muscle Wasting: Yazdanism Region (Temporalis Muscle): moderate Clavicle Bone Region (Pectoralis Major, Trapezius Muscles): moderate Shoulder and Acromion Process Region (Deltoid Muscle): deferred Dorsal Hand (Interosseous Muscle): moderate Scapular Bone Region (Trapezius, Supraspinatus, Infraspinatus Muscles): deferred Anterior Thigh and Patellar Region (Quadriceps Muscles): deferred Posterior Calf Region (Gastrocnemius Muscle): deferred Estimated Nutrition Needs: Weight Used: 49kg- current body weight Energy: 1742-7896 (30-35 kcal/kg) Protein: 73.5-98 (1.5-2 g/kg) Fluid: Per provider Malnutrition Statement: Does the patient meet criteria for malnutrition: Yes Etiology of Malnutrition: Chronic Illness Malnutrition Severity: Moderate Protein-Calorie Malnutrition (POA) as evidenced by clinical characteristics: Subcutaneous Fat Loss: Moderate Fluid accumulation: Moderate *Based on [employer] and [employer]EN Indicators to Diagnose Malnutrition (AAIM) criteria (2012) Torie Giles RD, LD Contact: Page [phone] or [employer] message * Perlita Armijo APRN-FILTER TIP CATCHER - 08/03/2024 11:50 AM EDT Hepatobiliary Follow-Up Consult Note IDENTIFYING DATA/REASON FOR CONSULTATION PATIENT: Jc Dunaway ADMIT DATE: 08/01/2024 TIME OF EVALUATION: 08/03/2024 11:50 AM HOSPITAL STAY: LOS: 2 days REFERRING PHYSICIAN: Sonya Treviño MD, * REASON FOR CONSULTATION: s/p OLT SUBJECTIVE/INTERVAL HISTORY: No acute events HISTORY OF PRESENT ILLNESS: Jc Dunaway is a 59 y.o. 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 We have been consulted regarding s/p OLT. Fall Risk: Assessed for patient fall risk and discussed safety measures during rounding. Patient has a past medical history of UC s/p TPC/IPAA with pouch-rectal anastomosis, and PSC cirrhosis s/p DCD OLT 05/25/24 (D+/R-). With RNY choledochojejunostomy. Donor HBcAb positive. 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 Patient presents with fevers, Tmax 103F. Also endorsing new diarrhea over last 3 weeks, in additionto rectal pain and hematochezia. Does have known h/o hemorrhoids. States he was treated for pouchitis previously but was not diagnosed based on scope, just empirically. PAST MEDICAL, SURGICAL, FAMILY & SOCIAL HISTORY: Past Medical History: Diagnosis Date Cirrhosis of liver not due to alcohol 03/15/2024 Colon cancer 10/2020 Primary sclerosing cholangitis Ulcerative colitis diagnosed in the 80s- no surgery Past Surgical History: Procedure Laterality Date LAPAROTOMY EXPLORATORY N/A 06/03/2024 Laterality: N/A; Surgeon: Dalia Thomas MD; Location: [facility] MAIN OR LIVER TRANSPLANT, ORTHOTOPIC N/A 05/25/2024 Laterality: N/A; Surgeon: Dalia Thomas MD; Location: [facility] MAIN OR EXAM UNDER ANESTHESIA ANORECTAL N/A 02/28/2022 Laterality: N/A; Surgeon: Miroslava Joiner MD; Location: [facility] PERIOP ENDOSCOPY SMALL INTESTINE POUCH DIAGNOSTIC N/A 02/28/2022 Laterality: N/A; Surgeon: Miroslava Joiner MD; Location: [facility] PERIOP LOOP ILEOSTOMY CLOSURE N/A 06/04/2021 Laterality: N/A; Surgeon: Miroslava Joiner MD; Location: [facility] MAIN OR ENDOSCOPY SMALL INTESTINE POUCH DIAGNOSTIC N/A 04/22/2021 Laterality: N/A; Surgeon: Miroslava Joiner MD; Location: [facility] ENDOSCOPY COLOPROCTECTOMY TOTAL W/ LOOP ILEOSTOMY OR CREATION ILEAL RESERVOIR LAPAROSCOPIC N/A 02/12/2021 Laterality: N/A; Surgeon: Miroslava Joiner MD; Location: [facility] MAIN OR SIGMOIDOSCOPY DIAGNOSTIC N/A 02/04/2021 Laterality: N/A; Surgeon: Miroslava Joiner MD; Location: [facility] ENDOSCOPY HIP REPLACEMENT Left 2005 COLONOSCOPY DIAGNOSTIC Nov 20202001 No family history on file. Social History Socioeconomic History Marital status: Tobacco Use Smoking status: Never Smokeless tobacco: Never Vaping Use Vaping status: Never Used Substance and Sexual Activity Alcohol use: Not Currently Drug use: Not Currently Social Drivers of Health Financial Resource Strain: Low Risk (05/26/2024) Overall Financial Resource Strain (CARDIA) Difficulty of Paying Living Expenses: Not hard at all Food Insecurity: No Food Insecurity (08/01/2024) NCSS - Food Insecurity Worried About Running Out of Food in the Last Year: No Ran Out of Food in the Last Year: No Transportation Needs: No Transportation Needs (08/01/2024) NCSS - Transportation Lack of Transportation: No Personal Safety: Not At Risk (08/01/2024) NCSS - Interpersonal Safety Feels Physically and Emotionally Safe: Yes Physically Hurt by Someone: No Humiliated or Emotionally Abused by Someone: No Housing Stability: Not At Risk (08/01/2024) NCSS - Housing/Utilities Has Housing: Yes Worried About Losing Housing: No Unable to Get Utilities: No MEDICATIONS: SCHEDULED: Entecavir (BARACLUDE) tablet 0.5 mg, 0.5 mg, Daily Mycophenolate mofetil (CELLCEPT) capsule 500 mg, 500 mg, bid Sulfamethoxazole-trimethoprim (BACTRIM DS) 800-160 MG per tablet 1 tablet, 1 tablet, Q24H Tacrolimus (PROGRAF) capsule 4 mg, 4 mg, Q12HNS valGANciclovir (valCYTE) tablet 450 mg, 450 mg, BID FLUIDS/DRIPS: PRNs: ALLERGIES: He has no known allergies. REVIEW OF SYSTEMS; otherwise full ROS was reviewed and was otherwise negative Review of Systems Constitutional: Negative. HENT: Negative. Cardiovascular: Negative. Musculoskeletal: Negative. Psychiatric: Negative. Lymph/Heme: Negative. PHYSICAL EXAM: Temp: [97.7 F (36.5 C)-98.6 F (37 C)] 98.6 F (37 C) Pulse (Heart Rate): [74-103] 83 Resp Rate: [16-17] 16 BP: (115-135)/(66-75) 133/75 O2 Sat (%): [99 %-100 %] 99 % I/O last 3 completed shifts: In: 1102.3 [P.O.:550; I.V.:552.3] Out: - Oxygen Therapy: Oxygen Therapy O2 Sat (%): 99 % O2 Device: room air Constitutional: Breathing easily, in no acute distress. Does not appear cachectic. HEENT: PER, neg scleral icterus, normal appearing oropharynx, no appreciable cervical LAD Cardiovascular: Normal rate and regular rhythm. Pulmonary/Chest: Breath sounds normal. Abdominal: Soft. NT/ND. No appreciable HS. Extrem: No appreciable edema. No gross focal motor deficits in distal extrem. Neurological: AOx3. Skin: Does not appear jaundiced. LABS AND IMAGING: Recent Results (from the past 24 hours) CHEM 7 (LYTES,BUN,CREA,GLUC) Collection Time: 08/03/24 5:52 AM Result Value Ref Range Sodium 137 135 - 145 mmol/L Potassium 4.3 3.5 - 5.0 mmol/L Chloride 105 98 - 108 mmol/L CO2 24 21 - 31 mmol/L Glucose 83 Nonfastin-179 mg/dL; Fastin-99 mg/dL BUN 21 7 - 25 mg/dL Creatinine 0.74 0.70 - 1.30 mg/dL Bun/Crea Ratio 28 Osmolality (Calculated) 290 278 - 305 mOsm/kg Anion Gap 12 7 - 17 mmol/L eGFR, CKD-EPI, Male >90 >=60 mL/min/1.73m2 PHOSPHATE, INORGANIC Collection Time: 08/03/24 5:52 AM Result Value Ref Range Phosphorous 3.4 2.2 - 4.6 mg/dL MAGNESIUM Collection Time: 08/03/24 5:52 AM Result Value Ref Range Magnesium 1.5 (L) 1.6 - 2.6 mg/dL CALCIUM Collection Time: 08/03/24 5:52 AM Result Value Ref Range Calcium 8.5 (L) 8.6 - 10.5 mg/dL HEPATIC FUNCTION PANEL Collection Time: 08/03/24 5:52 AM Result Value Ref Range Albumin 3.5 3.5 - 5.0 g/dL Bilirubin Direct 0.1 <0.3 mg/dL Bilirubin Total 0.3 <1.5 mg/dL ALP 240 (H) 32 - 126 U/L ALT 44 10 - 52 U/L AST 28 10 - 39 U/L Total Protein 6.1 (L) 6.4 - 8.3 g/dL CBC AND ELECTRONIC DIFF Collection Time: 08/03/24 5:52 AM Result Value Ref Range WBC Count 3.41 (L) 3.73 - 10.10 K/uL RBC Count 3.34 (L) 4.38 - 5.83 M/uL Hemoglobin 10.2 (L) 13.4 - 16.8 g/dL Hematocrit 32.5 (L) 39.6 - 48.8 % Mean Cell Volume 97.3 (H) 79.0 - 94.5 fL Mean Cell Hgb 30.5 26.1 - 33.3 pg Mean Cell Hgb Conc 31.4 (L) 31.9 - 36.5 g/dL RBC Distribution 16.9 (H) 10.9 - 14.3 % Platelet Count 362 (H) 146 - 337 K/uL Mean Platelet Volume 10.2 8.7 - 12.3 fL DIFF STATUS Electronic Differential Segs + Bands Auto 57.1 % Immature Grans % 1.2 % Lymphocyte % Auto 27.3 % Monocyte % Auto 10.6 % Eosinophil % Auto 1.5 % Basophil % Auto 2.3 % Nucleated RBC 0.0 <=0.2 /100 WBC Segs + Bands,Absolute Auto 1.95 1.57 - 6.19 K/uL Immature Grans Absolute 0.04 <=0.07 K/uL Abs Lymph Auto 0.93 0.83 - 3.57 K/uL Abs Tama Auto 0.36 0.24 - 0.93 K/uL Abs Eos Auto 0.05 0.00 - 0.48 K/uL Abs Baso Auto 0.08 0.00 - 0.09 K/uL TACROLIMUS LEVEL, TROUGH (PRE DRUG LEVEL) Collection Time: 08/03/24 5:53 AM Result Value Ref Range Tacrolimus, Trough 10.8 Bone Marrow Transplant: 5.0-15.0 Kidney/Pancreatic Transplant: 0 to 3 months: 8.0-10.0, 3 to 12 months: 6.0-8.0, >12 months: 4.0- 6.0 ng/mL Other Labs Reviewed. Imaging 08/02/24 - CT Abdomen/Pelvis without contrast 1. No acute findings in the abdomen and pelvis. 2. Indeterminate nodule/mass in the left hemipelvis measuring up to 2.6 cm. ASSESSMENT & RECOMMENDATIONS: Jc Dunaway is a 59 y.o. 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 We have been consulted regarding s/p OLT. 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 With new onset diarrhea over the last 3 weeks (enteric panel negative), rectal pain, and hematochezia. Given anatomy as above, will plan for ileoscopy/pouchoscopy today, 08/03. 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 Would consult IR for bx of lesion. -Alk phos elevated, low threshold to start ursodiol -Continue entecavir ongoing for HBV ppx -IS otherwise as above; antiviral/antibacterial ppx per protocol -Plan of care discussed with transplant surgery -Will continue to follow. Perlita Armijo APRN-[facility] Transplant Hepatology Nurse Practitioner For contact information (pager/spectralink), please go to [employer] > IM Consult Serv [facility] > [facility] Main Hepatology Consults I have spent 37 minutes in patient care related activities for this patient (chart review, direct patient contact, documentation, communication, and multi- disciplinary rounds). If you have any questions or need any further information, please feel free to contact our consult team. Thank you for allowing us to participate in the care of Jc Dunaway. Cosigned by Marcus Zhu MD, PhD at 08/03/2024 4:54 PM EDT Associated attestation - Marcus Zhu MD, PhD - 08/03/2024 4:54 PM EDT ATTENDING ATTESTATION: I saw and personally examined the patient today, 08/03/2024 . I discussed the findings and therapeutic plan with the advanced practice provider. I agree with the history, physical examination, and medical decisions as outlined in this note. Total time spent on direct patient related care: 39 mins. I personally reviewed previous clinical lab testing, radiologic tests, diagnostic testing (including prior endoscopies and surgical procedures) listed in the note with the following additions: 58 y/o with a hx of PSC cirrhosis s/p DCD OLT 05/25/2024 (D+/R-)/Donor HBcAb pos and RnY admitted for fevers, diarrhea and nausea/vomiting. Prior hospitalization c/b bowel obstruction and bile leak s/p ex lap with cultures with ESBL e coli. Imaging with findings of retroperitoneal mass, pending additional work up.. Seen before procedure. Pending endoscopic surveillance of ileoanal pouch due to tene smus and hematochezia. Will follow up with any biopsies. IS and prophylaxis reviewed, prednisone for PSC, continue current regimen. Remainder per note. Marcus Zhu MD, PhD International Trade Teacher of Clinical Medicine [facility] Gastroenterology, Hepatology, and Nutrition Pager [phone] * SKYLAR De Leon - 08/02/2024 11:21 AM EDT Discharge Planning Assessment Is the patient able to participate in the assessment?: Yes Care Management Plan Patient s/p OLT 05.25.24 readmits to 10R with fevers. He is independent with all ADLs, not using anyDME or HHC services. No issues obtaining immunosuppressants. 2x/wk lab draws. Not cleared to returnto work yet. SDH reviewed and there are no resource needs. is primary support and will transport home. Initial Discharge Planning Expected Discharge Disposition: Home Transportation Available for Discharge: Private Vehicle, Family or Friend Anticipated DME: none Anticipated Services at Discharge: Outpatient clinical services (ie: lab draws, transfusions, injectables), Outpatient follow up Patient Assessment Completed: Initial Legal Next of Kin Does the patient have a Guardian?: No Spouse: Yes Name and Contact information: Flaca Dunaway [phone] Adult Child(sujey), List All Adult Children: Yes Name and Contact information: Cuate Dunaway [phone] Would you like to add additional adult children?: Yes Name and Contact information: Leroy Dunaway [phone] Reviewed and Updated in Demographics? : Yes Advanced Care Planning Has the patient completed Advance Directives?: Not Completed Medication Management Does the patient have prescription insurance coverage? : Yes Is the patient on Anticoagulation? : No [id number] [place] [phone] [facility] [phone] [facility] [id number] Living Environment and Support System Is the patient from a facility or halfway?: No Living Environment: House Patient Caregiving Responsibilities: Self Patient-identified caregiver/support network: Family Who does the patient identify as a teachable caregiver(s)?: Spouse or Partner Services Does the patient use a home health or hospice agency?: No Current with dialysis?: No Does the patient use any community programs or services?: No Does patient use DME? : none Does the patient use oxygen?: No Does patient use medical supplies? : none Anticipated Changes Related to Illness/Injury? : No Initial ADLs Prior to Arrival What is the patient's reported baseline physical functioning prior to this acute illness?: independent What is the patient's reported baseline cognitive functioning prior to this acute illness?: independent Is the patient's baseline functioning changed by this acute illness? : No Concerns with patient being able to care for themselves at home? : No Reason for consult: Readmission Assessment Consulted by: KENNEDY Assessment: SW received consult for readmission assessment. Met with patient at bedside today. He is a 59 year old Male who received a liver transplant on 05/25/24. He is alert, oriented x 4 . Prior to admission he was living with spouse. He does not receive outside services and does not use durable medical equipment. He is independent with activities of daily living, including driving. Reviewed/updated demographic sheet. Patient denies history of mental health diagnoses, including depression, anxiety, and PTSD. Patientreports coping skills of watching sports, tv and reading. SW reviewed mental health symptoms and patient denies any current difficulties. Patient denies use of alcohol. Patient denies use of tobacco products. Patient denies use of non-prescribed substances. Patient continues to have [employer] insurance. Patient denies financial concerns, reports being able to meet monthly income needs and current medications. Currently receives employment wages for income - remains on leave, not yet cleared to return to work. Patient will not need assistance with transportation home at discharge. Plan: 1 SW provided emotional support & reflective listening. 2 SW assessed for additional needs, no other needs identified at this time. 3 SW to continue to follow as needed. GABBY Belcher LSW Apparel Rental Clerk Transplant 10R Available by Secure Chat * SKYLAR De Leon - 08/02/2024 9:29 AM EDT Care Management Progress Note SW made attempt to meet with Patient and complete IA/readmission assessment. Patient with medical team participating in rounds. Will attempt again later. GABBY Belcher LSW Apparel Rental Clerk Transplant 10R Available by Secure Chat * Marylin Mccarthy RPH - 08/02/2024 8:38 AM EDT Department of Pharmacy Transplant Note Patient: Jc Dunaway Room/Bed: 1012/A Transplant pharmacy is following Jc Dunaway during hospital admission and will perform the following activities related to transplant pharmacotherapy: 1. Ensure appropriate management and titration of immunosuppressive, prophylactic, and other supportive care medications; 2. Monitor for any adverse drug effects; 3. Review the patient's medication profile for any potential drug interaction. Name: Marylin Mccarthy RPH Phone #: [phone] Date/Time: 08/02/2024 8:38 AM * Vicki Brooks - 08/02/2024 8:10 AM EDTSummary: Pharmacy Med Rec Department of Pharmacy Admission Medication Reconciliation Note Patient: Jc Dunaway Room/Bed: 1012/A The patient's allergies have been reviewed with Patient. I have reviewed the patient's home medication list with the following sources Patient recall with prompting, Dispense Report, OARRs, and [facility] IHIS Review. I have also reviewed this list with the pharmacist. I am recommending the following changes to the home medication list. These recommendations are considered preliminary until attestation of this note by a pharmacist. OARRs Report: Has been reviewed. Other Comments: No changes were made to Home Medication List at this time. Patient reported his Last Home Dose of mycophenolate and tacrolimus was on 08/01/24 at 2100. Please feel free to contact me with any further questions. Name: Vicki Brooks Phone #: [phone] Date/Time: 08/02/2024 8:12 AM Time Spent: 20 minutes Cosigned by Marylin Mccarthy RPH at 08/02/2024 2:40 PM EDT Associated attestation - Marylin Mccarthy RPH - 08/02/2024 2:40 PM EDT Department of Pharmacy Admission Medication Reconciliation Note Patient: Jc Dunaway Room/Bed: 1012/A I have reviewed the home medication list with the Shipping And Receiving Weigher. The home medication list status is: complete. All changes to the home medication list have been updated in IHIS. Updated SORT LINE WORKER Med List: Prior to Admission Medications Prescriptions Aspirin Low Dose 81 MG Chew Tab chewable tablet Sig: CHEW 1 TABLET BY MOUTH EVERY DAY Calcium Carbonate-Vitamin D (CALCIUM-CARB 600 + D PO) Sig: Take 1 tablet by mouth daily. Entecavir 0.5 MG tablet Sig: Take 1 tablet by mouth daily. Mycophenolate mofetil (CELLCEPT) 250 MG capsule Sig: Take 2 capsules by mouth every 12 hours. Sulfamethoxazole-trimethoprim 800-160 MG per tablet Sig: Take 1 tablet by mouth every 24 hours. Tacrolimus (PROGRAF) 1 MG capsule Sig: Take 5 capsules by mouth Every morning AND 4 capsules every evening. predniSONE 5 MG tablet Sig: Take 1 tablet by mouth daily. valGANciclovir 450 MG tablet Sig: Take 1 tablet by mouth 2 times daily. Facility-Administered Medications: None Please feel free to contact me with any further questions. Name: Marylin Chogalileo [facility] Phone #: [phone] Date/Time: 08/02/2024 2:40 PM documented in this [facility]06-10-2025 Procedure note* Nestor Hernandez MD - 08/09/2024 3:08 PM EDTAssociated Order(s): GENERAL PROCEDURE BODY INTERVENTIONAL RADIOLOGY PROCEDURE NOTE PROCEDURE INDICATION: Pelvic mass PROCEDURE PERFORMED: CT guided needle biopsy. FINDINGS/TARGET: Left perirectal mass SPECIMEN: 18 gauge core needle biopsy passes x 5 DISPOSITION OF SPECIMEN(S): Pathology PLAN: Patient to recovery. Nestor Hernandez MD 08/09/2024 3:08 PM ALUMINUM POLISHER(S): Nestor Hernandez MD. CONSENT: Informed consent was obtained prior to the procedure after discussion of the risks, benefits, and alternatives of the procedure, and expected procedure outcomes were discussed with the patient and/orrepresentative. The consent document was placed in chart. DID THIS PROCEDURE REQUIRE A UNIVERSAL PROTOCOL?: Yes. [place] Protocol is required. Preprocedure verification is complete. Patient verified and consents confirmed, procedure sites identified and marked as appropriate, timeout called before the start of the procedure. SEDATION: Moderate sedation and local anesthetic ESTIMATED BLOOD LOSS: Less than 1 mL COMPLICATIONS: None immediate ADDITIONAL: Please refer to the report generated in the IMAGING section of the electronic medical record for additional procedure details. Thank you for allowing Interventional Radiology to participate in thispatient's [facility] Work Phone: [phone] Procedure note* Nestor Hernandez MD - 08/09/2024 3:08 PM EDTAssociated Order(s): GENERAL PROCEDURE BODY INTERVENTIONAL RADIOLOGY PROCEDURE NOTE PROCEDURE INDICATION: Pelvic mass PROCEDURE PERFORMED: CT guided needle biopsy. FINDINGS/TARGET: Left perirectal mass SPECIMEN: 18 gauge core needle biopsy passes x 5 DISPOSITION OF SPECIMEN(S): Pathology PLAN: Patient to recovery. Nestor Hernandez MD 08/09/2024 3:08 PM ALUMINUM POLISHER(S): Nestor Hernandez MD. CONSENT: Informed consent was obtained prior to the procedure after discussion of the risks, benefits, and alternatives of the procedure, and expected procedure outcomes were discussed with the patient and/orrepresentative. The consent document was placed in chart. DID THIS PROCEDURE REQUIRE A UNIVERSAL PROTOCOL?: Yes. [place] Protocol is required. Preprocedure verification is complete. Patient verified and consents confirmed, procedure sites identified and marked as appropriate, timeout called before the start of the procedure. SEDATION: Moderate sedation and local anesthetic ESTIMATED BLOOD LOSS: Less than 1 mL COMPLICATIONS: None immediate ADDITIONAL: Please refer to the report generated in the IMAGING section of the electronic medical record for additional procedure details. Thank you for allowing Interventional Radiology to participate in thispatient's [facility] Nurse Note* Nursing Notes - Ashok Scanlon RN - 08/09/2024 3:06 PM EDT Procedure completed with IR Attending David of CT guided left devante pelvic mass biopsy. Samples obtained intra-procedure and sent to lab for analysis. Post procedure patient to travel to [id number] for post procedure monitoring. See post procedure orders for nursing care. Needle out: 1506 [facility]06-10-2025 Miscellaneous Notes* Nursing Notes - Ashok Scanlon RN - 08/09/2024 3:06 PM EDT Procedure completed with IR Attending David of CT guided left devante pelvic mass biopsy. Samples obtained intra-procedure and sent to lab for analysis. Post procedure patient to travel to [id number] for post procedure monitoring. See post procedure orders for nursing care. Needle out: 1506 * Plan of Care - Cheryl Haley RN - 08/09/2024 9:21 AM EDT Problem: Adult Inpatient Plan of Care Goal: Plan of Care Review Outcome: Progressing Goal: Patient-Specific Goal (Individualized) Outcome: Progressing Goal: Absence of Hospital-Acquired Illness or Injury Outcome: Progressing Goal: Optimal Comfort and Wellbeing Outcome: Progressing Goal: Readiness for Transition of Care Outcome: Progressing Problem: Fall Injury Risk Goal: Fall/Trauma/Injury Risk: Absence of Trauma/Injury/Falls Description: Patient will demonstrate the desired outcomes. Outcome: Progressing Goal: Knowledge of risk factors/behavior modification Description: Knowledge of risk factors/behavior modification for fall/injury prevention Outcome: Progressing * Plan of Care - Daiana Alonzo RN - 08/08/2024 2:48 PM EDT Your patient is scheduled for tomorrow, 08/[address] guided biopsy in IR. Please make pt NPO at [facility] * Plan of Care - Nenita Che RN - 08/07/2024 4:45 AM EDT Problem: Adult Inpatient Plan of Care Goal: Plan of Care Review Outcome: Progressing Goal: Patient-Specific Goal (Individualized) Outcome: Progressing Goal: Absence of Hospital-Acquired Illness or Injury Outcome: Progressing Goal: Optimal Comfort and Wellbeing Outcome: Progressing Goal: Readiness for Transition of Care Outcome: Progressing Problem: Fall Injury Risk Goal: Fall/Trauma/Injury Risk: Absence of Trauma/Injury/Falls Description: Patient will demonstrate the desired outcomes. Outcome: Progressing Goal: Knowledge of risk factors/behavior modification Description: Knowledge of risk factors/behavior modification for fall/injury prevention Outcome: Progressing Problem: Infection Goal: Absence of Infection Signs and Symptoms Outcome: Progressing Problem: Oral Intake Inadequate Goal: Improved Oral Intake Outcome: Progressing Problem: Diarrhea Goal: Effective Diarrhea Management Outcome: Progressing * Plan of Care - Nenita Che RN - 08/06/2024 4:06 AM EDT Problem: Adult Inpatient Plan of Care Goal: Plan of Care Review Outcome: Progressing Goal: Patient-Specific Goal (Individualized) Outcome: Progressing Goal: Absence of Hospital-Acquired Illness or Injury Outcome: Progressing Goal: Optimal Comfort and Wellbeing Outcome: Progressing Goal: Readiness for Transition of Care Outcome: Progressing Problem: Fall Injury Risk Goal: Fall/Trauma/Injury Risk: Absence of Trauma/Injury/Falls Description: Patient will demonstrate the desired outcomes. Outcome: Progressing Goal: Knowledge of risk factors/behavior modification Description: Knowledge of risk factors/behavior modification for fall/injury prevention Outcome: Progressing Problem: Infection Goal: Absence of Infection Signs and Symptoms Outcome: Progressing Problem: Oral Intake Inadequate Goal: Improved Oral Intake Outcome: Progressing Problem: Diarrhea Goal: Effective Diarrhea Management Outcome: Progressing * Plan of Care - Jason Mclain RN - 08/05/2024 4:33 AM EDT Problem: Adult Inpatient Plan of Care Goal: Plan of Care Review Outcome: Progressing Flowsheets (Taken 08/05/2024 0431) Progress: improving Plan of Care Reviewed With: patient Problem: Hypertension Acute Goal: Blood Pressure Within Desired Range Outcome: Progressing Problem: Diarrhea Goal: Effective Diarrhea Management Outcome: Progressing * Plan of Care - Rubina Valderrama RN - 08/04/2024 10:59 AM EDT Problem: Adult Inpatient Plan of Care Goal: Plan of Care Review Outcome: Progressing Goal: Patient-Specific Goal (Individualized) Outcome: Progressing Goal: Absence of Hospital-Acquired Illness or Injury Outcome: Progressing Goal: Optimal Comfort and Wellbeing Outcome: Progressing Goal: Readiness for Transition of Care Outcome: Progressing Problem: Fall Injury Risk Goal: Fall/Trauma/Injury Risk: Absence of Trauma/Injury/Falls Description: Patient will demonstrate the desired outcomes. Outcome: Progressing Goal: Knowledge of risk factors/behavior modification Description: Knowledge of risk factors/behavior modification for fall/injury prevention Outcome: Progressing Problem: Infection Goal: Absence of Infection Signs and Symptoms Outcome: Progressing Problem: Pain Acute Goal: Optimal Pain Control and Function Outcome: Adequate for Discharge Problem: Oral Intake Inadequate Goal: Improved Oral Intake Outcome: Progressing * Plan of Care - Torie Giles RD - 08/04/2024 10:39 AM EDT Problem: Oral Intake Inadequate Goal: Improved Oral Intake Outcome: Progressing Nutrition Recommendations and Plan of Care: 1. Regular diet 2. Chocolate Ensure Plus BID (350 kcal, 13 gm protein each) 3. RD to follow and monitor nutritional intake/tolerance, weight changes, labs, skin integrity, andGI function. * Plan of Care - Jason Mclain RN - 08/04/2024 5:31 AM EDT Problem: Adult Inpatient Plan of Care Goal: Plan of Care Review Outcome: Progressing Flowsheets (Taken 08/04/2024 0593) Progress: improving Plan of Care Reviewed With: patient Problem: Pain Acute Goal: Optimal Pain Control and Function Outcome: Progressing Problem: Oral Intake Inadequate Goal: Improved Oral Intake Outcome: Progressing * Plan of Care - Hiwot Cabrera RN - 08/03/2024 4:17 PM EDT Interventional Radiology Procedural Planning Note Patient diagnosis: hemipelvic mass Requested procedure: biopsy of mass Specified Laterality: n/a Sedation: moderate Thank you for your referral to Interventional Radiology. Your request for a hemipelvic mass for your patient has been reviewed and approved for scheduling. Your patient is an ADD ON to our schedule on 08/09/24. See IR consult note. Time to be determined. Please note that emergent cases will take priority over any added on cases. Special Considerations: *please contact us if patient's status changes or procedure is no longer needed. *please make your patient npo @ midnight prior to scheduled procedure, this includes tube feeding to be stopped and no pills crushed in food. Lab criteria: * plt 50,000 or greater * INR 1.5 or less *Hgb 8 or greater Your patient has been tentatively scheduled at the above date and time based on their ability to hold anticoagulation. Your patient will need to be able to tolerate lying flat for approximately one hour. A working PIV is required to sedate your patient. For questions or concerns please call us directly at [phone] for questions [phone]. * Plan of Care - Rubina Valderrama RN - 08/03/2024 4:06 PM EDT Problem: Adult Inpatient Plan of Care Goal: Plan of Care Review Outcome: Progressing Goal: Patient-Specific Goal (Individualized) Outcome: Progressing Goal: Absence of Hospital-Acquired Illness or Injury Outcome: Progressing Goal: Optimal Comfort and Wellbeing Outcome: Progressing Goal: Readiness for Transition of Care Outcome: Progressing Problem: Fall Injury Risk Goal: Fall/Trauma/Injury Risk: Absence of Trauma/Injury/Falls Description: Patient will demonstrate the desired outcomes. Outcome: Progressing Goal: Knowledge of risk factors/behavior modification Description: Knowledge of risk factors/behavior modification for fall/injury prevention Outcome: Progressing Problem: Activity Intolerance Goal: Enhanced Capacity and Energy Outcome: Adequate for Discharge Problem: Infection Goal: Absence of Infection Signs and Symptoms Outcome: Progressing * Nursing Notes - Rubina Valderrama RN - 08/03/2024 9:01 AM EDT Tap water enema #1 given to patient at 0850. Patient tolerated with no complaints. Tap water enema #2 given to patient at 0930. Patient tolerated with no complaints. RN observed outcome: clear with no evidence of stool present. * Plan of Care - Jason Mclain RN - 08/03/2024 3:39 AM EDT Problem: Adult Inpatient Plan of Care Goal: Plan of Care Review Outcome: Progressing Flowsheets (Taken 08/03/2024 0336) Progress: improving Plan of Care Reviewed With: patient Problem: Activity Intolerance Goal: Enhanced Capacity and Energy Outcome: Progressing Problem: Infection Goal: Absence of Infection Signs and Symptoms Outcome: Progressing * Plan of Care - Parth Sousa RN - 08/02/2024 10:13 AM EDT Problem: Adult Inpatient Plan of Care Goal: Plan of Care Review Outcome: Progressing Goal: Patient-Specific Goal (Individualized) Outcome: Progressing Goal: Absence of Hospital-Acquired Illness or Injury Outcome: Progressing Goal: Optimal Comfort and Wellbeing Outcome: Progressing Goal: Readiness for Transition of Care Outcome: Progressing * Plan of Care - Jason Mclain RN - 08/02/2024 6:03 AM EDT Problem: Adult Inpatient Plan of Care Goal: Plan of Care Review Outcome: Progressing Flowsheets (Taken 08/02/2024 0602) Progress: improving Plan of Care Reviewed With: patient spouse Problem: Fall Injury Risk Goal: Fall/Trauma/Injury Risk: Absence of Trauma/Injury/Falls Description: Patient will demonstrate the desired outcomes. Outcome: Progressing Goal: Knowledge of risk factors/behavior modification Description: Knowledge of risk factors/behavior modification for fall/injury prevention Outcome: Progressing * Nursing Notes - Xiomara Khan RN - 08/01/2024 7:06 PM EDT On admission to _1012_, from __home__, a dual RN initial assessment of skin condition was performedby Xiomara Khan RN and Nabeel Mclain RN. Skin Assessment: WDL - old surgical scar LDA Added: No Pictures Added: No Based on fall prevention risk stratification tool, patient is at low risk for fall. The following interventions were implemented: Low Risk 0-16 GREEN Call light plugged into bed Fall Color placed above door Gait belt at bedside Education on falls provided. Med. Risk 18-38 YELLOW Call light plugged into bed Fall Color placed above door Gait belt at bedside Education on falls provided Initiate Bed-Exit Alarm. High Risk 40-54 RED Call light plugged into bed Fall Color placed above door Gait belt at bedside Education on falls provided Initiate Bed-Exit Alarm Move patient to room closest to nurses station when available. [facility] Plan of care note* Plan of Care - Cheryl Haley RN - 08/09/2024 9:21 AM EDT Problem: Adult Inpatient Plan of Care Goal: Plan of Care Review Outcome: Progressing Goal: Patient-Specific Goal (Individualized) Outcome: Progressing Goal: Absence of Hospital-Acquired Illness or Injury Outcome: Progressing Goal: Optimal Comfort and Wellbeing Outcome: Progressing Goal: Readiness for Transition of Care Outcome: Progressing Problem: Fall Injury Risk Goal: Fall/Trauma/Injury Risk: Absence of Trauma/Injury/Falls Description: Patient will demonstrate the desired outcomes. Outcome: Progressing Goal: Knowledge of risk factors/behavior modification Description: Knowledge of risk factors/behavior modification for fall/injury prevention Outcome: Progressing [facility]06-09-2025 Plan of care note* Plan of Care - Daiana Alonzo RN - 08/08/2024 2:48 PM EDT Your patient is scheduled for tomorrow, 08/[address] guided biopsy in IR. Please make pt NPO at [facility]06-08-2025 Plan of care note* Plan of Care - Nenita Che RN - 08/07/2024 4:45 AM EDT Problem: Adult Inpatient Plan of Care Goal: Plan of Care Review Outcome: Progressing Goal: Patient-Specific Goal (Individualized) Outcome: Progressing Goal: Absence of Hospital-Acquired Illness or Injury Outcome: Progressing Goal: Optimal Comfort and Wellbeing Outcome: Progressing Goal: Readiness for Transition of Care Outcome: Progressing Problem: Fall Injury Risk Goal: Fall/Trauma/Injury Risk: Absence of Trauma/Injury/Falls Description: Patient will demonstrate the desired outcomes. Outcome: Progressing Goal: Knowledge of risk factors/behavior modification Description: Knowledge of risk factors/behavior modification for fall/injury prevention Outcome: Progressing Problem: Infection Goal: Absence of Infection Signs and Symptoms Outcome: Progressing Problem: Oral Intake Inadequate Goal: Improved Oral Intake Outcome: Progressing Problem: Diarrhea Goal: Effective Diarrhea Management Outcome: Progressing [facility]06-07-2025 Plan of care note* Plan of Care - Nenita Che RN - 08/06/2024 4:06 AM EDT Problem: Adult Inpatient Plan of Care Goal: Plan of Care Review Outcome: Progressing Goal: Patient-Specific Goal (Individualized) Outcome: Progressing Goal: Absence of Hospital-Acquired Illness or Injury Outcome: Progressing Goal: Optimal Comfort and Wellbeing Outcome: Progressing Goal: Readiness for Transition of Care Outcome: Progressing Problem: Fall Injury Risk Goal: Fall/Trauma/Injury Risk: Absence of Trauma/Injury/Falls Description: Patient will demonstrate the desired outcomes. Outcome: Progressing Goal: Knowledge of risk factors/behavior modification Description: Knowledge of risk factors/behavior modification for fall/injury prevention Outcome: Progressing Problem: Infection Goal: Absence of Infection Signs and Symptoms Outcome: Progressing Problem: Oral Intake Inadequate Goal: Improved Oral Intake Outcome: Progressing Problem: Diarrhea Goal: Effective Diarrhea Management Outcome: Progressing [facility]06-06-2025 NoteImmunohistochemical stains are in progress; addendum report will follow.[facility] Work Phone: 1(275) 791-990106-06-2025 Plan of care note* Plan of Care - Jason Mclain RN - 08/05/2024 4:33 AM EDT Problem: Adult Inpatient Plan of Care Goal: Plan of Care Review Outcome: Progressing Flowsheets (Taken 08/05/2024 0431) Progress: improving Plan of Care Reviewed With: patient Problem: Hypertension Acute Goal: Blood Pressure Within Desired Range Outcome: Progressing Problem: Diarrhea Goal: Effective Diarrhea Management Outcome: Progressing [facility]06-05-2025 Consult note* Carmen Castellanos MD - 08/04/2024 5:00 PM EDTAssociated Order(s): IP CONSULT TO INFECTIOUS DISEASE - TRANSPLANT Transplant Infectious Diseases (Team 3) Consult Note REQUESTING PHYSICIAN: Sonya Treviño MD, MPH REASON FOR CONSULTATION: re-admit cyclical fevers, CT A/P 08/02 with nodule/mass, [place] ASSESSMENT: Febrile illness 2.6 cm mass in left hemipelvis S/p OLT 05/25/24 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 Please note, there is no fellow currently assigned to ID Team 3, therefore please reach out to me directly with any questions or concerns. Carmen Castellanos MD I can be reached via [employer] secure message or Pager #[phone]. Please do not hesitate to reach out with any questions or concerns. ___ Subjective HISTORY ACQUIRED FROM: Patient Current [facility] admission records reviewed Prior [facility] admission records reviewed HISTORY OF PRESENT ILLNESS: I have reviewed the referring physician's H+P, including the history/HPI, and agree with the findings as documented. No additional history is required to support the current assessment, however I have documented my exam below. Objective OBJECTIVE FINDINGS: Vital Signs (24hrs): Temp: [97.6 F (36.4 C)-99.8 F (37.7 C)] 98.2 F (36.8 C) Pulse (Heart Rate): [83-101] 94 Resp Rate: [16-17] 16 BP: (106-132)/(64-70) 116/70 O2 Sat (%): [98 %] 98 % Weight: [46.6 kg (102 lb 11.2 oz)] 46.6 kg (102 lb 11.2 oz) PHYSICAL EXAM: General: chronically ill appearing, non-toxic, lying in bed in NAD Eyes: AI sclera Ears, Nose, Mouth, Throat: poor dentition Neck: supple CV: regular rate Pulmonary: unlabored breathing, no accessory muscle use, no respiratory distress Abdomen: non distended : no reyna Ext: warm, well perfused MSK: no joint swelling nor erythema Skin: no rash or lesion Neuro: speech fluent, responds to questions appropriately Psych: calm Microbiology/Immunology: Personally reviewed in [place] Radiology/Images (personally reviewed): CT A/P 08/02/24 - 2.6 cm nodule/mass left hemipelvis DIAGNOSTIC RESULTS/PROCEDURES: CBC Lab Results Component Value Date WBC 4.26 08/04/2024 HGB 12.3 (L) 08/04/2024 HCT 39.8 08/04/2024 PLATELET 341 (H) 08/04/2024 MCV 100.8 (H) 08/04/2024 EDIF Lab Results Component Value Date RBCDISTRIBU 16.7 (H) 08/04/2024 GRNLOCYT 76.8 08/04/2024 LYMPHOCYT 12.0 08/04/2024 MONOCYTELEC 8.2 08/04/2024 EOSINOPHILS 0.9 08/04/2024 BASOPHILS 1.2 08/04/2024 LYMPHOCYTABS 0.51 (L) 08/04/2024 EOSINOPHLABS 0.04 08/04/2024 PLATELET 341 (H) 08/04/2024 MPV 10.3 08/04/2024 Lab Results Component Value Date SODIUM 136 08/04/2024 POTASSIUM 4.9 08/04/2024 CHLORIDE 105 08/04/2024 CO2 22 08/04/2024 BUN 23 08/04/2024 CREATSERUM 0.94 08/04/2024 GLUCOSE 92 08/04/2024 Lab Results Component Value Date ALT 72 (H) 08/04/2024 ALT 76 08/01/2024 AST 51 (H) 08/04/2024 AST 45 08/01/2024 GGT 210 08/01/2024 ALKPHOS 476 (H) 08/04/2024 ALKPHOS 276 08/01/2024 BILITOTAL 0.4 08/04/2024 BILITOTAL 0.24 08/01/2024 BILIDIRECT 0.1 08/04/2024 BILIDIRECT 0.15 08/01/2024 [facility] Work Phone: 1(414) 282-463306-05-2025 Consult note* Carmen Castellanos MD - 08/04/2024 5:00 PM EDTAssociated Order(s): IP CONSULT TO INFECTIOUS DISEASE - TRANSPLANT Transplant Infectious Diseases (Team 3) Consult Note REQUESTING PHYSICIAN: Sonya Treviño MD, MPH REASON FOR CONSULTATION: re-admit cyclical fevers, CT A/P 08/02 with nodule/mass, [place] ASSESSMENT: Febrile illness 2.6 cm mass in left hemipelvis S/p OLT 05/25/24 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 Please note, there is no fellow currently assigned to ID Team 3, therefore please reach out to me directly with any questions or concerns. Carmen Castellanos MD I can be reached via [employer] secure message or Pager #[phone]. Please do not hesitate to reach out with any questions or concerns. ___ Subjective HISTORY ACQUIRED FROM: Patient Current [facility] admission records reviewed Prior [facility] admission records reviewed HISTORY OF PRESENT ILLNESS: I have reviewed the referring physician's H+P, including the history/HPI, and agree with the findings as documented. No additional history is required to support the current assessment, however I have documented my exam below. Objective OBJECTIVE FINDINGS: Vital Signs (24hrs): Temp: [97.6 F (36.4 C)-99.8 F (37.7 C)] 98.2 F (36.8 C) Pulse (Heart Rate): [83-101] 94 Resp Rate: [16-17] 16 BP: (106-132)/(64-70) 116/70 O2 Sat (%): [98 %] 98 % Weight: [46.6 kg (102 lb 11.2 oz)] 46.6 kg (102 lb 11.2 oz) PHYSICAL EXAM: General: chronically ill appearing, non-toxic, lying in bed in NAD Eyes: AI sclera Ears, Nose, Mouth, Throat: poor dentition Neck: supple CV: regular rate Pulmonary: unlabored breathing, no accessory muscle use, no respiratory distress Abdomen: non distended : no reyna Ext: warm, well perfused MSK: no joint swelling nor erythema Skin: no rash or lesion Neuro: speech fluent, responds to questions appropriately Psych: calm Microbiology/Immunology: Personally reviewed in [place] Radiology/Images (personally reviewed): CT A/P 08/02/24 - 2.6 cm nodule/mass left hemipelvis DIAGNOSTIC RESULTS/PROCEDURES: CBC Lab Results Component Value Date WBC 4.26 08/04/2024 HGB 12.3 (L) 08/04/2024 HCT 39.8 08/04/2024 PLATELET 341 (H) 08/04/2024 MCV 100.8 (H) 08/04/2024 EDIF Lab Results Component Value Date RBCDISTRIBU 16.7 (H) 08/04/2024 GRNLOCYT 76.8 08/04/2024 LYMPHOCYT 12.0 08/04/2024 MONOCYTELEC 8.2 08/04/2024 EOSINOPHILS 0.9 08/04/2024 BASOPHILS 1.2 08/04/2024 LYMPHOCYTABS 0.51 (L) 08/04/2024 EOSINOPHLABS 0.04 08/04/2024 PLATELET 341 (H) 08/04/2024 MPV 10.3 08/04/2024 Lab Results Component Value Date SODIUM 136 08/04/2024 POTASSIUM 4.9 08/04/2024 CHLORIDE 105 08/04/2024 CO2 22 08/04/2024 BUN 23 08/04/2024 CREATSERUM 0.94 08/04/2024 GLUCOSE 92 08/04/2024 Lab Results Component Value Date ALT 72 (H) 08/04/2024 ALT 76 08/01/2024 AST 51 (H) 08/04/2024 AST 45 08/01/2024 GGT 210 08/01/2024 ALKPHOS 476 (H) 08/04/2024 ALKPHOS 276 08/01/2024 BILITOTAL 0.4 08/04/2024 BILITOTAL 0.24 08/01/2024 BILIDIRECT 0.1 08/04/2024 BILIDIRECT 0.15 08/01/2024 * Adriana Myers MD - 08/03/2024 1:23 PM EDT Images from the original note were not included. Interventional Radiology Consult Note [facility] employee benefits coordinator [id number] - [facility] employee benefits coordinator [id number] PATIENT: Mr. Jc Dunaway Admission Date: 08/01/2024 Requesting Provider/Service: Leroy Norton PA-C HPI: Jc Dunaway is a 59 y.o. 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 Reason for Consult: CT with indeterminate nodule/mass, consult for biopsy Currently on Blood Thinner: No Sedation Anticipated: Modereate Diet: DIET NPO with meds Code Status: Full Code Pertinent Labs: Lab Results Component Value Date/Time INR 1.1 08/01/2024 09:30 PM INR 1.6 04/28/2024 05:04 PM PLATELET 362 (H) 08/03/2024 05:52 AM PLATELET 368 08/01/2024 09:12 AM HGB 10.2 (L) 08/03/2024 05:52 AM HGB 11.0 08/01/2024 09:12 AM GFR >90 08/03/2024 05:52 AM GFR 106 04/28/2024 05:04 PM No Known Allergies Contrast Allergy: No Current Medications: Entecavir 0.5 mg Oral Daily Mycophenolate mofetil 500 mg Oral bid Sulfamethoxazole-trimethoprim 1 tablet Oral Q24H Tacrolimus 3 mg Oral Q12HNS valGANciclovir 450 mg Oral BID Vitals: Blood pressure 127/83, pulse 84, temperature 98 F (36.7 C), temperature source Infrared, resp. rate16, height 1.676 m (5' 6), weight 48.6 kg (107 lb 3.2 oz), SpO2 99%. Laboratory Data: Lab Results Component Value Date/Time PT 14.5 (H) 08/01/2024 09:30 PM PT 19.1 04/28/2024 05:04 PM INR 1.1 08/01/2024 09:30 PM INR 1.6 04/28/2024 05:04 PM PTT 33.1 08/01/2024 09:30 PM PTT 32.7 04/28/2024 05:04 PM Lab Results Component Value Date WBC 3.41 (L) 08/03/2024 HGB 10.2 (L) 08/03/2024 HCT 32.5 (L) 08/03/2024 PLATELET 362 (H) 08/03/2024 MCV 97.3 (H) 08/03/2024 Lab Results Component Value Date SODIUM 137 08/03/2024 POTASSIUM 4.3 08/03/2024 CHLORIDE 105 08/03/2024 CO2 24 08/03/2024 BUN 21 08/03/2024 CREATSERUM 0.74 08/03/2024 GLUCOSE 83 08/03/2024 Lab Results Component Value Date/Time GFR >90 08/03/2024 05:52 AM GFR 106 04/28/2024 05:04 PM IMPRESSION AND RECOMMENDATIONS Jc Dunaway is a 59 y.o. male with is a 59 y.o. male with of Cirrhosis of liver not due to alcohol (03/15/2024), Colon cancer (10/2020), Primary sclerosing cholangitis, and Ulcerative colitis.CT August 02 2024 showed 2.6cm mass in the left hemipelvis. BIR is consulted for biopsy. Will plan for CT guided left hemipelvis mass biopsy. Please keep NPO at midnight prior to the procedure. Coag goals INR <1.5 and Platelets > 50k. Please notify IR if the situation changes. Consult reviewed with IR Attending Dr. Ashish Knight who agrees with the above plan. Adriana Myers MD; 08/03/2024, 1:23 PM Important Notes Procedures are performed with either moderate sedation or anesthesia services. Both require the patient to be NPO (which includes tube feeds). Patients will need to lie flat comfortably for the duration of the procedure. Please be aware that patients requiring anesthesia services will require additional coordination which may increase the time from consult to procedure. Cosigned by Ashish Knight MD at 08/03/2024 5:50 PM EDT * Perlita Armijo, WATER TREATMENT OPERATOR-FILTER TIP CATCHER - 08/02/2024 1:24 PM EDTAssociated Order(s): IP CONSULT TO HEPATOBILIARY Hepatobiliary Initial Consult Note IDENTIFYING DATA/REASON FOR CONSULTATION PATIENT: Jc Dunaway ADMIT DATE: 08/01/2024 TIME OF EVALUATION: 08/02/2024 1:25 PM HOSPITAL STAY: LOS: 1 day REFERRING PHYSICIAN: Sonya Treviño MD, * REASON FOR CONSULTATION: s/p OLT SUBJECTIVE/INTERVAL HISTORY: N/A HISTORY OF PRESENT ILLNESS: Jc Dunaway is a 59 y.o. 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 We have been consulted regarding s/p OLT. Fall Risk: Assessed for patient fall risk and discussed safety measures during rounding. Patient has a past medical history of UC s/p TPC/IPAA with pouch-rectal anastomosis, and PSC cirrhosis s/p DCD OLT 05/25/24 (D+/R-). With RNY choledochojejunostomy. Donor HBcAb positive. 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 Patient presents with fevers, Tmax 103F. Also endorsing new diarrhea over last 3 weeks, in additionto rectal pain and hematochezia. Does have known h/o hemorrhoids. States he was treated for pouchitis previously but was not diagnosed based on scope, just empirically. PAST MEDICAL, SURGICAL, FAMILY & SOCIAL HISTORY: Past Medical History: Diagnosis Date Cirrhosis of liver not due to alcohol 03/15/2024 Colon cancer 10/2020 Primary sclerosing cholangitis Ulcerative colitis diagnosed in the 80s- no surgery Past Surgical History: Procedure Laterality Date LAPAROTOMY EXPLORATORY N/A 06/03/2024 Laterality: N/A; Surgeon: Dalia Thomas MD; Location: [facility] MAIN OR LIVER TRANSPLANT, ORTHOTOPIC N/A 05/25/2024 Laterality: N/A; Surgeon: Dalia Thomas MD; Location: [facility] MAIN OR EXAM UNDER ANESTHESIA ANORECTAL N/A 02/28/2022 Laterality: N/A; Surgeon: Miroslava Joiner MD; Location: [facility] PERIOP ENDOSCOPY SMALL INTESTINE POUCH DIAGNOSTIC N/A 02/28/2022 Laterality: N/A; Surgeon: Miroslava Joiner MD; Location: [facility] PERIOP LOOP ILEOSTOMY CLOSURE N/A 06/04/2021 Laterality: N/A; Surgeon: Miroslava Joiner MD; Location: [facility] MAIN OR ENDOSCOPY SMALL INTESTINE POUCH DIAGNOSTIC N/A 04/22/2021 Laterality: N/A; Surgeon: Miroslava Joiner MD; Location: [facility] ENDOSCOPY COLOPROCTECTOMY TOTAL W/ LOOP ILEOSTOMY OR CREATION ILEAL RESERVOIR LAPAROSCOPIC N/A 02/12/2021 Laterality: N/A; Surgeon: Miroslava Joiner MD; Location: [facility] MAIN OR SIGMOIDOSCOPY DIAGNOSTIC N/A 02/04/2021 Laterality: N/A; Surgeon: Miroslava Joiner MD; Location: [facility] ENDOSCOPY HIP REPLACEMENT Left 2005 COLONOSCOPY DIAGNOSTIC Nov 20202001 No family history on file. Social History Socioeconomic History Marital status: Tobacco Use Smoking status: Never Smokeless tobacco: Never Vaping Use Vaping status: Never Used Substance and Sexual Activity Alcohol use: Not Currently Drug use: Not Currently Social Drivers of Health Financial Resource Strain: Low Risk (05/26/2024) Overall Financial Resource Strain (CARDIA) Difficulty of Paying Living Expenses: Not hard at all Food Insecurity: No Food Insecurity (08/01/2024) NCSS - Food Insecurity Worried About Running Out of Food in the Last Year: No Ran Out of Food in the Last Year: No Transportation Needs: No Transportation Needs (08/01/2024) NCSS - Transportation Lack of Transportation: No Personal Safety: Not At Risk (08/01/2024) NCSS - Interpersonal Safety Feels Physically and Emotionally Safe: Yes Physically Hurt by Someone: No Humiliated or Emotionally Abused by Someone: No Housing Stability: Not At Risk (08/01/2024) NCSS - Housing/Utilities Has Housing: Yes Worried About Losing Housing: No Unable to Get Utilities: No MEDICATIONS: SCHEDULED: Entecavir (BARACLUDE) tablet 0.5 mg, 0.5 mg, Daily Mycophenolate mofetil (CELLCEPT) capsule 500 mg, 500 mg, bid Sulfamethoxazole-trimethoprim (BACTRIM DS) 800-160 MG per tablet 1 tablet, 1 tablet, Q24H Tacrolimus (PROGRAF) capsule 5 mg, 5 mg, q AM And Tacrolimus (PROGRAF) capsule 4 mg, 4 mg, Daily valGANciclovir (valCYTE) tablet 450 mg, 450 mg, BID FLUIDS/DRIPS: PRNs: ALLERGIES: He has no known allergies. REVIEW OF SYSTEMS; otherwise full ROS was reviewed and was otherwise negative Review of Systems Constitutional: Negative. HENT: Negative. Cardiovascular: Negative. Musculoskeletal: Negative. Psychiatric: Negative. Lymph/Heme: Negative. PHYSICAL EXAM: Temp: [97.5 F (36.4 C)-98.2 F (36.8 C)] 97.7 F (36.5 C) Pulse (Heart Rate): [72-87] 75 Resp Rate: [16-18] 16 BP: (113-135)/(72-79) 135/73 O2 Sat (%): [97 %-99 %] 99 % Weight: [48.3 kg (106 lb 8 oz)-48.6 kg (107 lb 3.2 oz)] 48.6 kg (107 lb 3.2 oz) No intake/output data recorded. Oxygen Therapy: Oxygen Therapy O2 Sat (%): 99 % O2 Device: room air Oxygen Delivery/Consumption Hemodynamics BSA (Calculated - sq m): 1.53 m2 Constitutional: Breathing easily, in no acute distress. Does not appear cachectic. HEENT: PER, neg scleral icterus, normal appearing oropharynx, no appreciable cervical LAD Cardiovascular: Normal rate and regular rhythm. Pulmonary/Chest: Breath sounds normal. Abdominal: Soft. NT/ND. No appreciable HS. Extrem: No appreciable edema. No gross focal motor deficits in distal extrem. Neurological: AOx3. Skin: Does not appear jaundiced. LABS AND IMAGING: Recent Results (from the past 24 hours) CHEM 7 (LYTES,BUN,CREA,GLUC) Collection Time: 08/01/24 9:30 PM Result Value Ref Range Sodium 138 135 - 145 mmol/L Potassium 4.3 3.5 - 5.0 mmol/L Chloride 103 98 - 108 mmol/L CO2 26 21 - 31 mmol/L Glucose 92 Nonfastin-179 mg/dL; Fastin-99 mg/dL BUN 26 (H) 7 - 25 mg/dL Creatinine 0.87 0.70 - 1.30 mg/dL Bun/Crea Ratio 30 Osmolality (Calculated) 294 278 - 305 mOsm/kg Anion Gap 13 7 - 17 mmol/L eGFR, CKD-EPI, Male >90 >=60 mL/min/1.73m2 PHOSPHATE, INORGANIC Collection Time: 08/01/24 9:30 PM Result Value Ref Range Phosphorous 3.3 2.2 - 4.6 mg/dL MAGNESIUM Collection Time: 08/01/24 9:30 PM Result Value Ref Range Magnesium 1.6 1.6 - 2.6 mg/dL CALCIUM Collection Time: 08/01/24 9:30 PM Result Value Ref Range Calcium 8.9 8.6 - 10.5 mg/dL HEPATIC FUNCTION PANEL Collection Time: 08/01/24 9:30 PM Result Value Ref Range Albumin 4.0 3.5 - 5.0 g/dL Bilirubin Direct 0.1 <0.3 mg/dL Bilirubin Total 0.4 <1.5 mg/dL ALP 229 (H) 32 - 126 U/L ALT 61 (H) 10 - 52 U/L AST 39 10 - 39 U/L Total Protein 6.9 6.4 - 8.3 g/dL PT,INR,PTT Collection Time: 08/01/24 9:30 PM Result Value Ref Range PT 14.5 (H) 11.9 - 14.2 sec INR 1.1 0.9 - 1.1 PTT 33.1 24.0 - 34.3 sec CBC AND ELECTRONIC DIFF Collection Time: 08/01/24 9:30 PM Result Value Ref Range WBC Count 3.32 (L) 3.73 - 10.10 K/uL RBC Count 3.64 (L) 4.38 - 5.83 M/uL Hemoglobin 11.2 (L) 13.4 - 16.8 g/dL Hematocrit 35.8 (L) 39.6 - 48.8 % Mean Cell Volume 98.4 (H) 79.0 - 94.5 fL Mean Cell Hgb 30.8 26.1 - 33.3 pg Mean Cell Hgb Conc 31.3 (L) 31.9 - 36.5 g/dL RBC Distribution 17.2 (H) 10.9 - 14.3 % Platelet Count 350 (H) 146 - 337 K/uL Mean Platelet Volume 10.4 8.7 - 12.3 fL MANUAL DIFF Collection Time: 08/01/24 9:30 PM Result Value Ref Range DIFF STATUS Manual Differential Bands Relative 0.0 % Segs Relative 67.4 % Lymph Relative 27.4 % Tama Relative 2.6 % Eos Relative 2.6 % Baso Relative 0.0 % Segs & Bands, Absolute 2.24 1.57 - 6.19 K/uL Abs Lymph Manual 0.91 0.83 - 3.57 K/uL Abs Tama Manual 0.09 (L) 0.24 - 0.93 K/uL Abs Eos Manual 0.09 0.00 - 0.48 K\uL Abs Baso Manual 0.00 0.00 - 0.09 K/uL RBC Morphology RBC INDICES CONFIRMED WITH MANUAL SLIDE REVIEW Platelet Estimate Automated platelet count confirmed by manual slide review URINALYSIS REFLEX TO CULTURE PERFORMABLE Collection Time: 08/01/24 10:20 PM Result Value Ref Range Color Yellow Yellow Appearance Urine Clear Clear Glucose Urine Negative Negative Ketones Urine Negative Negative Specific [place] Urine 1.031 1.001 - 1.035 Blood Urine Negative Negative pH Urine 5.5 5.0 - 7.0 Protein Urine Trace (A) Negative Urobilinogen Urine 0.2 E.U./dL 0.2 E.U/dL, 1.0 E.U/dL Nitrites Urine Negative Negative Leukocyte Esterase Negative Negative RBC Urine 0-2 0 - 2 /HPF WBC Urine 0 - 5 0 - 5 /HPF Squamous/Epithelial Cells, Urine 0-2/hpf 0-2/hpf, 3-5/hpf = 1+ Bacteria ABSENT ABSENT CHEM 7 (LYTES,BUN,CREA,GLUC) Collection Time: 08/02/24 6:23 AM Result Value Ref Range Sodium 140 135 - 145 mmol/L Potassium 4.3 3.5 - 5.0 mmol/L Chloride 105 98 - 108 mmol/L CO2 24 21 - 31 mmol/L Glucose 83 Nonfastin-179 mg/dL; Fastin-99 mg/dL BUN 28 (H) 7 - 25 mg/dL Creatinine 0.71 0.70 - 1.30 mg/dL Bun/Crea Ratio 39 Osmolality (Calculated) 298 278 - 305 mOsm/kg Anion Gap 15 7 - 17 mmol/L eGFR, CKD-EPI, Male >90 >=60 mL/min/1.73m2 PHOSPHATE, INORGANIC Collection Time: 08/02/24 6:23 AM Result Value Ref Range Phosphorous 3.8 2.2 - 4.6 mg/dL MAGNESIUM Collection Time: 08/02/24 6:23 AM Result Value Ref Range Magnesium 1.5 (L) 1.6 - 2.6 mg/dL CALCIUM Collection Time: 08/02/24 6:23 AM Result Value Ref Range Calcium 8.7 8.6 - 10.5 mg/dL CBC AND ELECTRONIC DIFF Collection Time: 08/02/24 6:23 AM Result Value Ref Range WBC Count 3.17 (L) 3.73 - 10.10 K/uL RBC Count 3.27 (L) 4.38 - 5.83 M/uL Hemoglobin 10.4 (L) 13.4 - 16.8 g/dL Hematocrit 32.6 (L) 39.6 - 48.8 % Mean Cell Volume 99.7 (H) 79.0 - 94.5 fL Mean Cell Hgb 31.8 26.1 - 33.3 pg Mean Cell Hgb Conc 31.9 31.9 - 36.5 g/dL RBC Distribution 17.3 (H) 10.9 - 14.3 % Platelet Count 338 (H) 146 - 337 K/uL Mean Platelet Volume 10.2 8.7 - 12.3 fL DIFF STATUS Electronic Differential Segs + Bands Auto 52.7 % Immature Grans % 2.2 % Lymphocyte % Auto 28.1 % Monocyte % Auto 13.2 % Eosinophil % Auto 2.2 % Basophil % Auto 1.6 % Nucleated RBC 0.0 <=0.2 /100 WBC Segs + Bands,Absolute Auto 1.67 1.57 - 6.19 K/uL Immature Grans Absolute 0.07 <=0.07 K/uL Abs Lymph Auto 0.89 0.83 - 3.57 K/uL Abs Tama Auto 0.42 0.24 - 0.93 K/uL Abs Eos Auto 0.07 0.00 - 0.48 K/uL Abs Baso Auto 0.05 0.00 - 0.09 K/uL MOLECULAR ENTERIC PANEL, STOOL Collection Time: 08/02/24 6:39 AM Result Value Ref Range Shigella Spp./Enteroinvasive E.Coli By PCR Negative Negative Shiga Toxin By Pcr Negative Negative Campylobacter Spp By Pcr Negative Negative Salmonella Spp By Pcr Negative Negative TACROLIMUS LEVEL, TROUGH (PRE DRUG LEVEL) Collection Time: 08/02/24 7:03 AM Result Value Ref Range Tacrolimus, Trough 10.3 Bone Marrow Transplant: 5.0-15.0 Kidney/Pancreatic Transplant: 0 to 3 months: 8.0-10.0, 3 to 12 months: 6.0-8.0, >12 months: 4.0- 6.0 ng/mL Other Labs Reviewed. Imaging None this admission ASSESSMENT & RECOMMENDATIONS: Jc Dunaway is a 59 y.o. 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 We have been consulted regarding s/p OLT. 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 With new onset diarrhea over the last 3 weeks (enteric panel negative), rectal pain, and hematochezia. Given anatomy as above, will plan for pouchoscopy tomorrow, 08/03. Please keep on clears for now, NPO at midnight, with plan for 2 tap water enemas prior to procedure. 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 ANDRE Fuller Transplant Hepatology Nurse Practitioner For contact information (pager/spectralink), please go to [employer] > IM Consult Serv [facility] > [facility] Main Hepatology Consults If you have any questions or need any further information, please feel free to contact our consult team. Thank you for allowing us to participate in the care of Jc Dunaway. Cosigned by Marcus Zhu MD, PhD at 08/02/2024 3:50 PM EDT Associated attestation - Marcus Zhu MD, PhD - 08/02/2024 3:50 PM EDT ATTENDING ATTESTATION: I saw and personally examined the patient today, 08/02/2024 . I discussed the findings and therapeutic plan with the advanced practice provider. I agree with the history, physical examination, and medical decisions as outlined in this note. Total time spent on direct patient related care: 39 mins. I personally reviewed previous clinical lab testing, radiologic tests, diagnostic testing (including prior endoscopies and surgical procedures) listed in the note with the following additions: 58 y/o with a hx of PSC cirrhosis s/p DCD OLT 05/25/2024 (D+/R-)/Donor HBcAb pos and RnY admitted for fevers, diarrhea and nausea/vomiting. Prior hospitalization c/b bowel obstruction and bile leak s/p ex lap with cultures with ESBL e coli. Agree with repeat abdominal imaging and infectious work up.Given diarrhea and tenesmus, would pursue flex sig for biopsies. IS and prophylaxis reviewed, prednisone for PSC, continue current regimen. Remainder per note. Marcus Zhu MD, PhD [employer] Teacher of Clinical Medicine [facility] Gastroenterology, Hepatology, and Nutrition Pager [phone] documented in this encounterRiver[facility]06-[facility]25 Plan of care note* Plan of Care - Rubina Valderrama RN - 08/04/2024 10:59 AM EDT Problem: Adult Inpatient Plan of Care Goal: Plan of Care Review Outcome: Progressing Goal: Patient-Specific Goal (Individualized) Outcome: Progressing Goal: Absence of Hospital-Acquired Illness or Injury Outcome: Progressing Goal: Optimal Comfort and Wellbeing Outcome: Progressing Goal: Readiness for Transition of Care Outcome: Progressing Problem: Fall Injury Risk Goal: Fall/Trauma/Injury Risk: Absence of Trauma/Injury/Falls Description: Patient will demonstrate the desired outcomes. Outcome: Progressing Goal: Knowledge of risk factors/behavior modification Description: Knowledge of risk factors/behavior modification for fall/injury prevention Outcome: Progressing Problem: Infection Goal: Absence of Infection Signs and Symptoms Outcome: Progressing Problem: Pain Acute Goal: Optimal Pain Control and Function Outcome: Adequate for Discharge Problem: Oral Intake Inadequate Goal: Improved Oral Intake Outcome: Progressing [facility]06-05-2025 Plan of care note* Plan of Care - Torie Giles RD - 08/04/2024 10:39 AM EDT Problem: Oral Intake Inadequate Goal: Improved Oral Intake Outcome: Progressing Nutrition Recommendations and Plan of Care: 1. Regular diet 2. Chocolate Ensure Plus BID (350 kcal, 13 gm protein each) 3. RD to follow and monitor nutritional intake/tolerance, weight changes, labs, skin integrity, andGI function. [facility]06-05-2025 Plan of care note* Plan of Care - Jason Mclain RN - 08/04/2024 5:31 AM EDT Problem: Adult Inpatient Plan of Care Goal: Plan of Care Review Outcome: Progressing Flowsheets (Taken 08/04/2024 05) Progress: improving Plan of Care Reviewed With: patient Problem: Pain Acute Goal: Optimal Pain Control and Function Outcome: Progressing Problem: Oral Intake Inadequate Goal: Improved Oral Intake Outcome: Progressing [facility]06-04-2025 Plan of care note* Plan of Care - Hiwot Cabrera RN - 08/03/2024 4:17 PM EDT Interventional Radiology Procedural Planning Note Patient diagnosis: hemipelvic mass Requested procedure: biopsy of mass Specified Laterality: n/a Sedation: moderate Thank you for your referral to Interventional Radiology. Your request for a hemipelvic mass for your patient has been reviewed and approved for scheduling. Your patient is an ADD ON to our schedule on 08/09/24. See IR consult note. Time to be determined. Please note that emergent cases will take priority over any added on cases. Special Considerations: *please contact us if patient's status changes or procedure is no longer needed. *please make your patient npo @ midnight prior to scheduled procedure, this includes tube feeding to be stopped and no pills crushed in food. Lab criteria: * plt 50,000 or greater * INR 1.5 or less *Hgb 8 or greater Your patient has been tentatively scheduled at the above date and time based on their ability to hold anticoagulation. Your patient will need to be able to tolerate lying flat for approximately one hour. A working PIV is required to sedate your patient. For questions or concerns please call us directly at [phone] for questions M-[phone]. [facility]06-04-2025 Plan of care note* Plan of Care - Rubina Valderrama RN - 08/03/2024 4:06 PM EDT Problem: Adult Inpatient Plan of Care Goal: Plan of Care Review Outcome: Progressing Goal: Patient-Specific Goal (Individualized) Outcome: Progressing Goal: Absence of Hospital-Acquired Illness or Injury Outcome: Progressing Goal: Optimal Comfort and Wellbeing Outcome: Progressing Goal: Readiness for Transition of Care Outcome: Progressing Problem: Fall Injury Risk Goal: Fall/Trauma/Injury Risk: Absence of Trauma/Injury/Falls Description: Patient will demonstrate the desired outcomes. Outcome: Progressing Goal: Knowledge of risk factors/behavior modification Description: Knowledge of risk factors/behavior modification for fall/injury prevention Outcome: Progressing Problem: Activity Intolerance Goal: Enhanced Capacity and Energy Outcome: Adequate for Discharge Problem: Infection Goal: Absence of Infection Signs and Symptoms Outcome: Progressing [facility]06-04-[facility] Consult note* Adriana Myers MD - 08/03/2024 1:23 PM EDT Images from the original note were not included. Interventional Radiology Consult Note [facility] employee benefits coordinator [id number] - [facility] employee benefits coordinator [id number] PATIENT: Mr. Jc Dunaway Admission Date: 08/01/2024 Requesting Provider/Service: Leroy Norton PA-C HPI: Jc Dunaway is a 59 y.o. 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 Reason for Consult: CT with indeterminate nodule/mass, consult for biopsy Currently on Blood Thinner: No Sedation Anticipated: Modereate Diet: DIET NPO with meds Code Status: Full Code Pertinent Labs: Lab Results Component Value Date/Time INR 1.1 08/01/2024 09:30 PM INR 1.6 04/28/2024 05:04 PM PLATELET 362 (H) 08/03/2024 05:52 AM PLATELET 368 08/01/2024 09:12 AM HGB 10.2 (L) 08/03/2024 05:52 AM HGB 11.0 08/01/2024 09:12 AM GFR >90 08/03/2024 05:52 AM GFR 106 04/28/2024 05:04 PM No Known Allergies Contrast Allergy: No Current Medications: Entecavir 0.5 mg Oral Daily Mycophenolate mofetil 500 mg Oral bid Sulfamethoxazole-trimethoprim 1 tablet Oral Q24H Tacrolimus 3 mg Oral Q12HNS valGANciclovir 450 mg Oral BID Vitals: Blood pressure 127/83, pulse 84, temperature 98 F (36.7 C), temperature source Infrared, resp. rate16, height 1.676 m (5' 6), weight 48.6 kg (107 lb 3.2 oz), SpO2 99%. Laboratory Data: Lab Results Component Value Date/Time PT 14.5 (H) 08/01/2024 09:30 PM PT 19.1 04/28/2024 05:04 PM INR 1.1 08/01/2024 09:30 PM INR 1.6 04/28/2024 05:04 PM PTT 33.1 08/01/2024 09:30 PM PTT 32.7 04/28/2024 05:04 PM Lab Results Component Value Date WBC 3.41 (L) 08/03/2024 HGB 10.2 (L) 08/03/2024 HCT 32.5 (L) 08/03/2024 PLATELET 362 (H) 08/03/2024 MCV 97.3 (H) 08/03/2024 Lab Results Component Value Date SODIUM 137 08/03/2024 POTASSIUM 4.3 08/03/2024 CHLORIDE 105 08/03/2024 CO2 24 08/03/2024 BUN 21 08/03/2024 CREATSERUM 0.74 08/03/2024 GLUCOSE 83 08/03/2024 Lab Results Component Value Date/Time GFR >90 08/03/2024 05:52 AM GFR 106 04/28/2024 05:04 PM IMPRESSION AND RECOMMENDATIONS Jc Dunaway is a 59 y.o. male with is a 59 y.o. male with of Cirrhosis of liver not due to alcohol (03/15/2024), Colon cancer (10/2020), Primary sclerosing cholangitis, and Ulcerative colitis.CT August 02 2024 showed 2.6cm mass in the left hemipelvis. BIR is consulted for biopsy. Will plan for CT guided left hemipelvis mass biopsy. Please keep NPO at midnight prior to the procedure. Coag goals INR <1.5 and Platelets > 50k. Please notify IR if the situation changes. Consult reviewed with IR Attending Dr. Ashish Knight who agrees with the above plan. Adrinaa Myers MD; 08/03/2024, 1:23 PM Important Notes Procedures are performed with either moderate sedation or anesthesia services. Both require the patient to be NPO (which includes tube feeds). Patients will need to lie flat comfortably for the duration of the procedure. Please be aware that patients requiring anesthesia services will require additional coordination which may increase the time from consult to procedure. Cosigned by Ashish Knight MD at 08/03/2024 5:50 PM EDT [facility]06-04-2025 NoteImmunohistochemical stains are in progress; addendum report will follow.Peoples HospitalComment on above:Performed By: #### SURGP ####[facility] (DEFAULT)[address] [place] [address] [phone] Nurse Note* Nursing Notes - Rubina Valderrama RN - 08/03/2024 9:01 AM EDT Tap water enema #1 given to patient at 0850. Patient tolerated with no complaints. Tap water enema #2 given to patient at 0930. Patient tolerated with no complaints. RN observed outcome: clear with no evidence of stool present. [facility] Plan of care note* Plan of Care - Jason Mclain RN - 08/03/2024 3:39 AM EDT Problem: Adult Inpatient Plan of Care Goal: Plan of Care Review Outcome: Progressing Flowsheets (Taken 08/03/2024 0339) Progress: improving Plan of Care Reviewed With: patient Problem: Activity Intolerance Goal: Enhanced Capacity and Energy Outcome: Progressing Problem: Infection Goal: Absence of Infection Signs and Symptoms Outcome: Progressing [facility]06-03-2025 Hospital Discharge instructions* Discharge Instructions* Leroy Norton PA-C - 08/02/2024 4:52 PM EDT CONTACTS POST TRANSPLANT OFFICE Local: [phone] Out of town: Post Transplant office hours are from 8:00AM - 4:00PM Thursday - Thursday. Service is also available for urgent calls after 4:00PM and on weekends. APPOINTMENTS Our Transplant clinic maintains a very full schedule and our provider schedules are often full. Please call us at [phone] if you anticipate being more than 15 minutes late to your appointment. If you are running late we may need to reschedule your appointment. NEPHROLOGY FOLLOW-UP It is important that you schedule a follow-up appointment with your referring fiberglass luggage molder in the next 2-3 months IMMUNOSUPPRESSION DOSING The dose of your anti-rejection medication may change frequently. The instructions on your medication box/bottle may not be your correct dose. Always take the amount prescribed by your transplant provider LAB WORK Have your labs drawn on Mondays and BEFORE you take your morning tacrolimus dose. Please notify your health services coordinator at our office, , if your labs are not drawn on time. This information is important to your plan of care and medication management. REGARDING YOUR MEDICATIONS - We have changed your medicine during this admission. Please review this discharge medicine on sheet and take ONLY the medicines listed here. Do NOT take any additional medicines unless you first check with your doctor DIET REGULAR ACTIVITY Activity: As tolerated Do not drive while taking narcotic pain medications. YOU MAY SHOWER YOU MAY TAKE TUB BATH MONITOR - Take your vital signs 3 times per day ( blood pressure, heart rate, and temperature) and write itdown. - Report temperatures greater bal 100.5 - Report blood pressure greater than 150/90 or less than 90/50. - Weigh yourself daily and write it down. Weigh yourself every day at about the same time wearing similar clothes - Call your doctor if you gain more than 3-4 pounds in 48 hours or gain more than 5 pounds total in one week. LAB WORK Have your labs drawn according to your current lab letter. NOTIFY YOUR PHYSICIAN IF YOU HAVE THE FOLLOWING SYMPTOMS: SYMPTOMS OF UTI (URINARY TRACT INFECTION) - Urine That Is Cloudy And/Or Has Foul Odor. - Urge To Urinate More Often. - Burning Sensation. - Fever. - Incontinence. - Blood In Urine. CHEST PAIN OR SOB - Chest pain or shortness of breath FEVER/CHILLS/FLU - Temperature greater than 100.5 degrees F and/or chills - Signs of cold or flu. NAUSEA or VOMITING - Nausea and vomiting that continues for more than 24 hours. - Not able to keep medicine down. - Not able to keep fluids down. RESPIRATORY CHANGES - Shortness of breath that gets worse. - Cough that gets worse. - Coughing up blood. documented in this [facility]06-03-2025 Consult note* Perlita Armijo APRN-FILTER TIP CATCHER - 08/02/2024 1:24 PM EDTAssociated Order(s): IP CONSULT TO HEPATOBILIARY Hepatobiliary Initial Consult Note IDENTIFYING DATA/REASON FOR CONSULTATION PATIENT: Jc Dunaway ADMIT DATE: 08/01/2024 TIME OF EVALUATION: 08/02/2024 1:25 PM HOSPITAL STAY: LOS: 1 day REFERRING PHYSICIAN: Sonya Treviño MD, * REASON FOR CONSULTATION: s/p OLT SUBJECTIVE/INTERVAL HISTORY: N/A HISTORY OF PRESENT ILLNESS: Jc Dunaway is a 59 y.o. 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 We have been consulted regarding s/p OLT. Fall Risk: Assessed for patient fall risk and discussed safety measures during rounding. Patient has a past medical history of UC s/p TPC/IPAA with pouch-rectal anastomosis, and PSC cirrhosis s/p DCD OLT 05/25/24 (D+/R-). With RNY choledochojejunostomy. Donor HBcAb positive. 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 Patient presents with fevers, Tmax 103F. Also endorsing new diarrhea over last 3 weeks, in additionto rectal pain and hematochezia. Does have known h/o hemorrhoids. States he was treated for pouchitis previously but was not diagnosed based on scope, just empirically. PAST MEDICAL, SURGICAL, FAMILY & SOCIAL HISTORY: Past Medical History: Diagnosis Date Cirrhosis of liver not due to alcohol 03/15/2024 Colon cancer 10/2020 Primary sclerosing cholangitis Ulcerative colitis diagnosed in the 80s- no surgery Past Surgical History: Procedure Laterality Date LAPAROTOMY EXPLORATORY N/A 06/03/2024 Laterality: N/A; Surgeon: Dalia Thomas MD; Location: [facility] MAIN OR LIVER TRANSPLANT, ORTHOTOPIC N/A 05/25/2024 Laterality: N/A; Surgeon: Dalia Thomas MD; Location: [facility] MAIN OR EXAM UNDER ANESTHESIA ANORECTAL N/A 02/28/2022 Laterality: N/A; Surgeon: Miroslava Joiner MD; Location: [facility] PERIOP ENDOSCOPY SMALL INTESTINE POUCH DIAGNOSTIC N/A 02/28/2022 Laterality: N/A; Surgeon: Miroslava Joiner MD; Location: [facility] PERIOP LOOP ILEOSTOMY CLOSURE N/A 06/04/2021 Laterality: N/A; Surgeon: Miroslava Joiner MD; [facility] SMALL INTESTINE POUCH DIAGNOSTIC N/A 04/22/2021 Laterality: N/A; Surgeon: Miroslava Joiner MD; [facility] END[facility] COLOPROCTECTOMY TOTAL W/ LOOP ILEOSTOMY OR CREATION ILEAL RESERVOIR LAPAROSCOPIC N/A 02/12/2021 Laterality: N/A; Surgeon: Miroslava Joiner MD; [facility] SIGMOIDOSCOPY DIAGNOSTIC N/A 02/04/2021 Laterality: N/A; Surgeon: Miroslava Joiner MD; [facility] END[facility]COPY HIP REPLACEMENT Left 2005 COLONOSCOPY DIAGNOSTIC Nov 20202001 No family history on file. Social History Socioeconomic History Marital status: Tobacco Use Smoking status: Never Smokeless tobacco: Never Vaping Use Vaping status: Never Used Substance and Sexual Activity Alcohol use: Not Currently Drug use: Not Currently Social Drivers of Health Financial Resource Strain: Low Risk (05/26/2024) Overall Financial Resource Strain (CARDIA) Difficulty of Paying Living Expenses: Not hard at all Food Insecurity: No Food Insecurity (08/01/2024) NCSS - Food Insecurity Worried About Running Out of Food in the Last Year: No Ran Out of Food in the Last Year: No Transportation Needs: No Transportation Needs (08/01/2024) NCSS - Transportation Lack of Transportation: No Personal Safety: Not At Risk (08/01/2024) NCSS - Interpersonal Safety Feels Physically and Emotionally Safe: Yes Physically Hurt by Someone: No Humiliated or Emotionally Abused by Someone: No Housing Stability: Not At Risk (08/01/2024) NCSS - Housing/Utilities Has Housing: Yes Worried About Losing Housing: No Unable to Get Utilities: No MEDICATIONS: SCHEDULED: Entecavir (BARACLUDE) tablet 0.5 mg, 0.5 mg, Daily Mycophenolate mofetil (CELLCEPT) capsule 500 mg, 500 mg, bid Sulfamethoxazole-trimethoprim (BACTRIM DS) 800-160 MG per tablet 1 tablet, 1 tablet, Q24H Tacrolimus (PROGRAF) capsule 5 mg, 5 mg, q AM And Tacrolimus (PROGRAF) capsule 4 mg, 4 mg, Daily valGANciclovir (valCYTE) tablet 450 mg, 450 mg, BID FLUIDS/DRIPS: PRNs: ALLERGIES: He has no known allergies. REVIEW OF SYSTEMS; otherwise full ROS was reviewed and was otherwise negative Review of Systems Constitutional: Negative. HENT: Negative. Cardiovascular: Negative. Musculoskeletal: Negative. Psychiatric: Negative. Lymph/Heme: Negative. PHYSICAL EXAM: Temp: [97.5 F (36.4 C)-98.2 F (36.8 C)] 97.7 F (36.5 C) Pulse (Heart Rate): [72-87] 75 Resp Rate: [16-18] 16 BP: (113-135)/(72-79) 135/73 O2 Sat (%): [97 %-99 %] 99 % Weight: [48.3 kg (106 lb 8 oz)-48.6 kg (107 lb 3.2 oz)] 48.6 kg (107 lb 3.2 oz) No intake/output data recorded. Oxygen Therapy: Oxygen Therapy O2 Sat (%): 99 % O2 Device: room air Oxygen Delivery/Consumption Hemodynamics BSA (Calculated - sq m): 1.53 m2 Constitutional: Breathing easily, in no acute distress. Does not appear cachectic. HEENT: PER, neg scleral icterus, normal appearing oropharynx, no appreciable cervical LAD Cardiovascular: Normal rate and regular rhythm. Pulmonary/Chest: Breath sounds normal. Abdominal: Soft. NT/ND. No appreciable HS. Extrem: No appreciable edema. No gross focal motor deficits in distal extrem. Neurological: AOx3. Skin: Does not appear jaundiced. LABS AND IMAGING: Recent Results (from the past 24 hours) CHEM 7 (LYTES,BUN,CREA,GLUC) Collection Time: 08/01/24 9:30 PM Result Value Ref Range Sodium 138 135 - 145 mmol/L Potassium 4.3 3.5 - 5.0 mmol/L Chloride 103 98 - 108 mmol/L CO2 26 21 - 31 mmol/L Glucose 92 Nonfastin-179 mg/dL; Fastin-99 mg/dL BUN 26 (H) 7 - 25 mg/dL Creatinine 0.87 0.70 - 1.30 mg/dL Bun/Crea Ratio 30 Osmolality (Calculated) 294 278 - 305 mOsm/kg Anion Gap 13 7 - 17 mmol/L eGFR, CKD-EPI, Male >90 >=60 mL/min/1.73m2 PHOSPHATE, INORGANIC Collection Time: 08/01/24 9:30 PM Result Value Ref Range Phosphorous 3.3 2.2 - 4.6 mg/dL MAGNESIUM Collection Time: 08/01/24 9:30 PM Result Value Ref Range Magnesium 1.6 1.6 - 2.6 mg/dL CALCIUM Collection Time: 08/01/24 9:30 PM Result Value Ref Range Calcium 8.9 8.6 - 10.5 mg/dL HEPATIC FUNCTION PANEL Collection Time: 08/01/24 9:30 PM Result Value Ref Range Albumin 4.0 3.5 - 5.0 g/dL Bilirubin Direct 0.1 <0.3 mg/dL Bilirubin Total 0.4 <1.5 mg/dL ALP 229 (H) 32 - 126 U/L ALT 61 (H) 10 - 52 U/L AST 39 10 - 39 U/L Total Protein 6.9 6.4 - 8.3 g/dL PT,INR,PTT Collection Time: 08/01/24 9:30 PM Result Value Ref Range PT 14.5 (H) 11.9 - 14.2 sec INR 1.1 0.9 - 1.1 PTT 33.1 24.0 - 34.3 sec CBC AND ELECTRONIC DIFF Collection Time: 08/01/24 9:30 PM Result Value Ref Range WBC Count 3.32 (L) 3.73 - 10.10 K/uL RBC Count 3.64 (L) 4.38 - 5.83 M/uL Hemoglobin 11.2 (L) 13.4 - 16.8 g/dL Hematocrit 35.8 (L) 39.6 - 48.8 % Mean Cell Volume 98.4 (H) 79.0 - 94.5 fL Mean Cell Hgb 30.8 26.1 - 33.3 pg Mean Cell Hgb Conc 31.3 (L) 31.9 - 36.5 g/dL RBC Distribution 17.2 (H) 10.9 - 14.3 % Platelet Count 350 (H) 146 - 337 K/uL Mean Platelet Volume 10.4 8.7 - 12.3 fL MANUAL DIFF Collection Time: 08/01/24 9:30 PM Result Value Ref Range DIFF STATUS Manual Differential Bands Relative 0.0 % Segs Relative 67.4 % Lymph Relative 27.4 % Tama Relative 2.6 % Eos Relative 2.6 % Baso Relative 0.0 % Segs & Bands, Absolute 2.24 1.57 - 6.19 K/uL Abs Lymph Manual 0.91 0.83 - 3.57 K/uL Abs Tama Manual 0.09 (L) 0.24 - 0.93 K/uL Abs Eos Manual 0.09 0.00 - 0.48 K\uL Abs Baso Manual 0.00 0.00 - 0.09 K/uL RBC Morphology RBC INDICES CONFIRMED WITH MANUAL SLIDE REVIEW Platelet Estimate Automated platelet count confirmed by manual slide review URINALYSIS REFLEX TO CULTURE PERFORMABLE Collection Time: 08/01/24 10:20 PM Result Value Ref Range Color Yellow Yellow Appearance Urine Clear Clear Glucose Urine Negative Negative Ketones Urine Negative Negative Specific [place] Urine 1.031 1.001 - 1.035 Blood Urine Negative Negative pH Urine 5.5 5.0 - 7.0 Protein Urine Trace (A) Negative Urobilinogen Urine 0.2 E.U./dL 0.2 E.U/dL, 1.0 E.U/dL Nitrites Urine Negative Negative Leukocyte Esterase Negative Negative RBC Urine 0-2 0 - 2 /HPF WBC Urine 0 - 5 0 - 5 /HPF Squamous/Epithelial Cells, Urine 0-2/hpf 0-2/hpf, 3-5/hpf = 1+ Bacteria ABSENT ABSENT CHEM 7 (LYTES,BUN,CREA,GLUC) Collection Time: 08/02/24 6:23 AM Result Value Ref Range Sodium 140 135 - 145 mmol/L Potassium 4.3 3.5 - 5.0 mmol/L Chloride 105 98 - 108 mmol/L CO2 24 21 - 31 mmol/L Glucose 83 Nonfastin-179 mg/dL; Fastin-99 mg/dL BUN 28 (H) 7 - 25 mg/dL Creatinine 0.71 0.70 - 1.30 mg/dL Bun/Crea Ratio 39 Osmolality (Calculated) 298 278 - 305 mOsm/kg Anion Gap 15 7 - 17 mmol/L eGFR, CKD-EPI, Male >90 >=60 mL/min/1.73m2 PHOSPHATE, INORGANIC Collection Time: 08/02/24 6:23 AM Result Value Ref Range Phosphorous 3.8 2.2 - 4.6 mg/dL MAGNESIUM Collection Time: 08/02/24 6:23 AM Result Value Ref Range Magnesium 1.5 (L) 1.6 - 2.6 mg/dL CALCIUM Collection Time: 08/02/24 6:23 AM Result Value Ref Range Calcium 8.7 8.6 - 10.5 mg/dL CBC AND ELECTRONIC DIFF Collection Time: 08/02/24 6:23 AM Result Value Ref Range WBC Count 3.17 (L) 3.73 - 10.10 K/uL RBC Count 3.27 (L) 4.38 - 5.83 M/uL Hemoglobin 10.4 (L) 13.4 - 16.8 g/dL Hematocrit 32.6 (L) 39.6 - 48.8 % Mean Cell Volume 99.7 (H) 79.0 - 94.5 fL Mean Cell Hgb 31.8 26.1 - 33.3 pg Mean Cell Hgb Conc 31.9 31.9 - 36.5 g/dL RBC Distribution 17.3 (H) 10.9 - 14.3 % Platelet Count 338 (H) 146 - 337 K/uL Mean Platelet Volume 10.2 8.7 - 12.3 fL DIFF STATUS Electronic Differential Segs + Bands Auto 52.7 % Immature Grans % 2.2 % Lymphocyte % Auto 28.1 % Monocyte % Auto 13.2 % Eosinophil % Auto 2.2 % Basophil % Auto 1.6 % Nucleated RBC 0.0 <=0.2 /100 WBC Segs + Bands,Absolute Auto 1.67 1.57 - 6.19 K/uL Immature Grans Absolute 0.07 <=0.07 K/uL Abs Lymph Auto 0.89 0.83 - 3.57 K/uL Abs Tama Auto 0.42 0.24 - 0.93 K/uL Abs Eos Auto 0.07 0.00 - 0.48 K/uL Abs Baso Auto 0.05 0.00 - 0.09 K/uL MOLECULAR ENTERIC PANEL, STOOL Collection Time: 08/02/24 6:39 AM Result Value Ref Range Shigella Spp./Enteroinvasive E.Coli By PCR Negative Negative Shiga Toxin By Pcr Negative Negative Campylobacter Spp By Pcr Negative Negative Salmonella Spp By Pcr Negative Negative TACROLIMUS LEVEL, TROUGH (PRE DRUG LEVEL) Collection Time: 08/02/24 7:03 AM Result Value Ref Range Tacrolimus, Trough 10.3 Bone Marrow Transplant: 5.0-15.0 Kidney/Pancreatic Transplant: 0 to 3 months: 8.0-10.0, 3 to 12 months: 6.0-8.0, >12 months: 4.0- 6.0 ng/mL Other Labs Reviewed. Imaging None this admission ASSESSMENT & RECOMMENDATIONS: Jc Dunaway is a 59 y.o. 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 We have been consulted regarding s/p OLT. 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 With new onset diarrhea over the last 3 weeks (enteric panel negative), rectal pain, and hematochezia. Given anatomy as above, will plan for pouchoscopy tomorrow, 08/03. Please keep on clears for now, NPO at midnight, with plan for 2 tap water enemas prior to procedure. 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 ANDRE Fuller Transplant Hepatology Nurse Practitioner For contact information (pager/spectralink), please go to [employer] > IM Consult Serv [facility] > [facility] Main Hepatology Consults If you have any questions or need any further information, please feel free to contact our consult team. Thank you for allowing us to participate in the care of Jc Dunaway. Cosigned by Marcus Zhu MD, PhD at 08/02/2024 3:50 PM EDT Associated attestation - Marcus Zhu MD, PhD - 08/02/2024 3:50 PM EDT ATTENDING ATTESTATION: I saw and personally examined the patient today, 08/02/2024 . I discussed the findings and therapeutic plan with the advanced practice provider. I agree with the history, physical examination, and medical decisions as outlined in this note. Total time spent on direct patient related care: 39 mins. I personally reviewed previous clinical lab testing, radiologic tests, diagnostic testing (including prior endoscopies and surgical procedures) listed in the note with the following additions: 58 y/o with a hx of PSC cirrhosis s/p DCD OLT 05/25/2024 (D+/R-)/Donor HBcAb pos and RnY admitted for fevers, diarrhea and nausea/vomiting. Prior hospitalization c/b bowel obstruction and bile leak s/p ex lap with cultures with ESBL e coli. Agree with repeat abdominal imaging and infectious work up.Given diarrhea and tenesmus, would pursue flex sig for biopsies. IS and prophylaxis reviewed, prednisone for PSC, continue current regimen. Remainder per note. Marcus Zhu MD, PhD International Trade Teacher of Clinical Medicine [facility] Gastroenterology, Hepatology, and Nutrition Pager [phone] [facility]06-03-2025 Plan of care note* Plan of Care - Parth Sousa RN - 08/02/2024 10:13 AM EDT Problem: Adult Inpatient Plan of Care Goal: Plan of Care Review Outcome: Progressing Goal: Patient-Specific Goal (Individualized) Outcome: Progressing Goal: Absence of Hospital-Acquired Illness or Injury Outcome: Progressing Goal: Optimal Comfort and Wellbeing Outcome: Progressing Goal: Readiness for Transition of Care Outcome: Progressing [facility]06-03-2025 Plan of care note* Plan of Care - Jason Mclain RN - 08/02/2024 6:03 AM EDT Problem: Adult Inpatient Plan of Care Goal: Plan of Care Review Outcome: Progressing Flowsheets (Taken 08/02/2024 0602) Progress: improving Plan of Care Reviewed With: patient spouse Problem: Fall Injury Risk Goal: Fall/Trauma/Injury Risk: Absence of Trauma/Injury/Falls Description: Patient will demonstrate the desired outcomes. Outcome: Progressing Goal: Knowledge of risk factors/behavior modification Description: Knowledge of risk factors/behavior modification for fall/injury prevention Outcome: Progressing [facility]06-02-2025 Nurse Note* Nursing Notes - Xiomara Khan RN - 08/01/2024 7:06 PM EDT On admission to _1012_, from __home__, a dual RN initial assessment of skin condition was performedby Xiomara Khan RN and Nabeel Mclain RN. Skin Assessment: WDL - old surgical scar LDA Added: No Pictures Added: No Based on fall prevention risk stratification tool, patient is at low risk for fall. The following interventions were implemented: Low Risk 0-16 GREEN Call light plugged into bed Fall Color placed above door Gait belt at bedside Education on falls provided. Med. Risk 18-38 YELLOW Call light plugged into bed Fall Color placed above door Gait belt at bedside Education on falls provided Initiate Bed-Exit Alarm. High Risk 40-54 RED Call light plugged into bed Fall Color placed above door Gait belt at bedside Education on falls provided Initiate Bed-Exit Alarm Move patient to room closest to nurses station when available. [facility]05-05-2025 History of Present illness Narrative* Shanell Helms RN - 07/04/2024 2:00 PM EDT Images from the original note were not included. PREP SHEET FOR LIVER SURGERY & TRANSPLANT HEPATOLOGY CLINIC Patient Name: Jc Dunaway ([id number]) Pump Installation And Servicer: Shanell Helms Transplant Field Aide: Babs Marley IMMUNOSUPPRESSION & LAB INFORMATION On Prednisone? yes on a taper Current Immunosuppressive Medication(s) Immunosuppressive Agents Mycophenolate mofetil (CELLCEPT) 250 MG capsule Take 2 capsules by mouth every 12 hours. Tacrolimus (PROGRAF) 1 MG capsule Take 4 capsules by mouth every 12 hours. Current lab frequency ordered: Twice a week Labs needed in clinic today? Yes - Hep C PCR (missed by OP lab) (if a K/L please review Nephrology protocol for 1st year lab schedule) New standing lab order needed? no Preferred lab: [facility] - [address] - [place] [address] [facility] [id number] COORDINATOR NOTES FOR APPOINTMENT: - 05/25/2024: DDLT with janay-en-y choledochojejunostomy - 06/03/2024: ex lap, small bowel pelvic adhesion and partial dehiscence of CDJ; revision of choledochojejunostomy - Next appointment: 07/13/2024 Cici De La Cruz APRN-FILTER TIP CATCHER - Transition to Hepatology: 08/08/2024 TRANSPLANT HEPATOLOGY 5, [facility] INFORMATION ON TRANSPLANTED ORGAN COMMENTS Type of Transplant: Liver Date of Transplant: 05/25/2024 Time elapsed since transplant: 17 day(s) Primary Disease: Primary Sclerosing Cholangitis: Ulcerative Colitis Donor Type: Donation after Circulatory Induction Therapy Used: Steroid Taper Risk Criteria Present: yes [place] Protocol Labs First set due AFTER: 06/22/2024 and BEFORE: 07/20/2024 Date 1st set of protocol labs completed: HBV DNA, HBV sAg, and HIV completed 06/23/24 Hep C PCR missed - due today Second set due AFTER 04/25/2025 and BEFORE: 06/24/2025 Date 2nd set of protocol labs completed: DIALYSIS CVC / OTHER LINES OR DRAINS PRESENT AT DISCHARGE Type: PICC Location: Right arm Date removed: 06/24/24 CMV & EBV SEROLOGIES AND FOLLOW UP COMMENTS CMV IgG Donor / Recipient: Donor: Positive Recipient: Lab Results Component Value Date CMVIGG Negative 05/25/2024 Lab monitoring at this time: no On an anti-viral? yes Dose: Valcyte 450mg BID Date to discontinue: 08/25/2024 EBV IgG Donor / Recipient Donor: Positive Recipient: Lab Results Component Value Date EBVVCAIGG Positive (A) 05/25/2024 Lab monitoring required: no FOLLOW UP FOR HCV AND HBV DONORS COMMENTS Hepatitis C+/MYLA- donor? no Lab monitoring required: no Hepatitis C+/MYLA+ donor? no Patient w/history of HBV or Donor HBV core +? yes Anti-viral prescribed: Entecavir Current dose: 0.5mg Daily HBV DNA & sAg due Q6 months Most recent results: DUE: October 2024 STEAM ENGINEER IMAGING & PROCEDURE FOLLOW UP COMMENTS History of HCC: PATH in process at time of appointment If yes -- [place] score: Frequency imaging is due: Abdominal MRI or CT & non-contrast chest CT Last imaging done: Next imaging due: Scheduled? Biliary Stent or drain: no Date of last procedure: Next procedure due: * Valeria Muller [facility] - 07/04/2024 2:00 PM EDT Department of Pharmacy Transplant Note Patient: Jc Dunaway Patient is a 58 y.o. year old male with a history of transplant on 05/25/2024 (Liver) for Primary Sclerosing Cholangitis: Ulcerative Colitis. Course: - RNY choledochojejunostomy at time of transplant (PMH: colon cancer and total proctocolectomy) - Ieus noted on 06/01, NGT placed at this time, removed on 06/06 for obstruction resolution - 06/03 take back to OR for washout and revision of anastamosis site - 06/03 peritoneal cultures positive for ESBL E.coli and C.auris on ertapenem and micafungin until 06/17 Complete List of Medications reported by the patient at today's visit: Current Outpatient Medications Medication Sig aspirin 81 MG Chew Tab chewable tablet Chew 1 tablet daily. Calcium Carbonate-Vitamin D (CALCIUM-CARB 600 + D PO) Take 1 tablet by mouth daily. Entecavir 0.5 MG tablet Take 1 tablet by mouth daily. Mycophenolate mofetil (CELLCEPT) 250 MG capsule Take 2 capsules by mouth every 12 hours. Pantoprazole [address] tablet DR Take 1 tablet by mouth daily. predniSONE 5 MG tablet Take 4 tablets by NG tube route daily for 4 days, THEN 3 tablets daily for 7days, THEN 2 tablets daily for 7 days, THEN 1 tablet daily for 7 days. (Patient taking differently:Take 4 tablets by route daily for 4 days, THEN 3 tablets daily for 7 days, THEN 2 tablets daily for7 days, THEN 1 tablet daily for 7 days.) Sulfamethoxazole-trimethoprim 800-160 MG per tablet Take 1 tablet by mouth every 24 hours. Tacrolimus (PROGRAF) 1 MG capsule Take 5 capsules by mouth every 12 hours. valGANciclovir 450 MG tablet Take 1 tablet by mouth 2 times daily. Medication focused review of systems (common side effects of immunosuppression) Patient confirms no symptoms or adverse effects Immunosuppression focused assessment of laboratory values: The pharmacist's assessment of the liver function tests: alk phos elevated but improving Lab Results Component Value Date/Time AST, MANUAL ENTER 23 06/30/2024 0904 AST, MANUAL ENTER 20 06/27/2024 0855 AST, MANUAL ENTER 21 06/23/2024 0912 ALT, MANUAL ENTER 14 06/30/2024 0904 ALT, MANUAL ENTER 20 06/27/2024 0855 ALT, MANUAL ENTER 20 06/23/2024 0912 ALKALINE PHOSPHATASE, MANUAL ENTER 168 06/30/2024 0904 ALKALINE PHOSPHATASE, MANUAL ENTER 188 06/27/2024 0855 ALKALINE PHOSPHATASE, MANUAL ENTER 190 06/23/2024 0912 Bilirubin Direct, Manual Enter 0.25 06/30/2024 0904 Bilirubin Direct, Manual Enter 0.27 06/27/2024 0855 Bilirubin Direct, Manual Enter 0.33 06/23/2024 0912 Bilirubin, Total, MANUAL ENTER 0.38 06/30/2024 0904 Bilirubin, Total, MANUAL ENTER 0.39 06/27/2024 0855 Bilirubin, Total, MANUAL ENTER 0.51 06/23/2024 0912 ` Estimated Creatinine Clearance: 71 mL/min (by C-G formula based on SCr of 0.72 mg/dL). Maintenance Immunosuppression Current Immunosuppressive Medication(s) IS Agent Sig Comments tacrolimus 5 mg every q12hr at 9 AM/PM Goal level: 7-9 ng/mL Last dose change: 06/30/24 increased from 4 mg twice daily mycophenolate 500 mg q12hr 06/03 decreased from 1000 mg BID for C. Auris infection prednisone 5 mg (06/28 and on) Remain on 5 mg daily for PSC Has patient missed any doses of medication in the last 4 weeks? No Has patient taken meds more than 2 hours before or after the prescribed dosing time in the last 4 weeks? No Has the patient reported cannabis use? No Recent immunosuppression drug levels Lab Results Component Value Date/Time Tacrolimus, Trough 7.1 06/10/2024 0546 Tacrolimus, Trough 8.8 06/09/2024 0839 Tacrolimus, Trough 8.6 06/09/2024 0601 TACROLIMUS LEVEL(TROUGH),MANUAL ENTER 5.6 06/27/2024 0855 TACROLIMUS LEVEL(TROUGH),MANUAL ENTER 5.8 06/20/2024 0851 TACROLIMUS LEVEL(TROUGH),MANUAL ENTER 4.1 06/16/2024 0848 Based on the pharmacist's assessment, the most recent immunosuppression levels are not reflective of most recent dose change. When did you take your last dose of tacrolimus: This morning. Dose last night around 9 pm Recommend: Continue to monitor. Infection Prophylaxis, Monitoring, & Treatment Misc Infections: - ESBL E.coli and C.auris from donor cultures: on jorge and ertapenem until 06/17 Current Anti-Infective Medication(s) Anti-Infective Agent Sig Planned Stop Date & Comments TMP-SMZ (Bactrim) 800 mg - 160 mg (DS) once daily Valganciclovir CMV Risk: +/- 450 mg twice daily End date: 11/25/24 Entecavir 0.5 mg daily Recipients of organs from anti-HBc positive donors should undergo monitoring with liver enzymes, HBsAg, and HBV DNA at least every 3 months for at least 12 months post-transplant No results found for: CMVPCR Blood Glucose Not diabetic Lab Results Component Value Date GLUCOSE 91 06/30/2024 GLUCOSE 100 06/27/2024 GLUCOSE 111 06/23/2024 Lab Results Component Value Date HGBA1C 5.2 05/25/2024 HGBA1C 5.2 03/15/2024 BG is within normal limits based on routine labs. Recommend: Continue to monitor. Cardiovascular Risk Blood Pressure Assessment Most recent clinic BP assessments: BP Readings from Last 3 Encounters: 07/04/24 128/81 06/20/24 114/68 06/15/24 94/50 Pulse Readings from Last 3 Encounters: 07/04/24 94 06/20/24 92 06/15/24 83 BP at home has been within normal limits based on home log review. Recommend: Continue to monitor. Medication Changes made during clinic visit in consultation with provider: No medication changes Name: Valeria Muller RPH Phone: [phone] Date/Time: 07/04/2024 2:28 PM * Meera Moon RN - 07/04/2024 2:00 PM EDT Images from the original note were not included. * Dalia Thomas MD - 07/04/2024 2:00 PM EDT Images from the original note were not included. Post-Tx Evaluation Liver 07/04/2024 Jc P Emelyn [id number] Chief Complaint: Chief Complaint Patient presents with Liver Recipient Follow-up Surgical Follow-up HPI: I saw Jc Dunaway in our post transplant office for a 1 month post liver transplant visit. 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 Past Medical History: Diagnosis Date Cirrhosis of liver not due to alcohol 03/15/2024 Colon cancer 10/2020 Primary sclerosing cholangitis Ulcerative colitis diagnosed in the 80s- no surgery Past Surgical History: Procedure Laterality Date LAPAROTOMY EXPLORATORY N/A 06/03/2024 Laterality: N/A; Surgeon: Dalia Thomas MD; Location: [facility] MAIN OR LIVER TRANSPLANT, ORTHOTOPIC N/A 05/25/2024 Laterality: N/A; Surgeon: Dalia Thomas MD; Location: [facility] MAIN OR EXAM UNDER ANESTHESIA ANORECTAL N/A 02/28/2022 Laterality: N/A; Surgeon: Miroslava Joiner MD; Location: [facility] PERIOP ENDOSCOPY SMALL INTESTINE POUCH DIAGNOSTIC N/A 02/28/2022 Laterality: N/A; Surgeon: Miroslava Joiner MD; Location: [facility] PERIOP LOOP ILEOSTOMY CLOSURE N/A 06/04/2021 Laterality: N/A; Surgeon: Miroslava Joiner MD; Location: [facility] MAIN OR ENDOSCOPY SMALL INTESTINE POUCH DIAGNOSTIC N/A 04/22/2021 Laterality: N/A; Surgeon: Miroslava Joiner MD; [facility] COLOPROCTECTOMY TOTAL W/ LOOP ILEOSTOMY OR CREATION ILEAL RESERVOIR LAPAROSCOPIC N/A 02/12/2021 Laterality: N/A; Surgeon: Miroslava Joiner MD; Location: [facility] MAIN OR SIGMOIDOSCOPY DIAGNOSTIC N/A 02/04/2021 Laterality: N/A; Surgeon: Miroslava Joiner MD; Location: [facility] ENDOSCOPY HIP REPLACEMENT Left 2005 COLONOSCOPY DIAGNOSTIC Nov 20202001 Social History Social History Socioeconomic History Marital status: Spouse name: Not on file Number of children: Not on file Years of education: Not on file Highest education level: Not on file Occupational History Not on file Tobacco Use Smoking status: Never Smokeless tobacco: Never Vaping Use Vaping status: Never Used Substance and Sexual Activity Alcohol use: Not Currently Drug use: Not Currently Sexual activity: Not on file Other Topics Concern Not on file Social History Narrative Not on file Social Drivers of Health Financial Resource Strain: Low Risk (05/26/2024) Overall Financial Resource Strain (CARDIA) Difficulty of Paying Living Expenses: Not hard at all Food Insecurity: No Food Insecurity (05/26/2024) NCSS - Food Insecurity Worried About Running Out of Food in the Last Year: No Ran Out of Food in the Last Year: No Transportation Needs: No Transportation Needs (05/26/2024) NCSS - Transportation Lack of Transportation: No Physical Activity: Not on file Stress: Not on file Social Connections: Not on file Personal Safety: Not At Risk (05/26/2024) NCSS - Interpersonal Safety Feels Physically and Emotionally Safe: Yes Physically Hurt by Someone: No Humiliated or Emotionally Abused by Someone: No Housing Stability: Not At Risk (05/26/2024) NCSS - Housing/Utilities Has Housing: Yes Worried About Losing Housing: No Unable to Get Utilities: No No family history on file. Medications: Current Outpatient Medications Medication Sig Dispense Refill aspirin 81 MG Chew Tab chewable tablet Chew 1 tablet daily. 30 tablet 2 Calcium Carbonate-Vitamin D (CALCIUM-CARB 600 + D PO) Take 1 tablet by mouth daily. Entecavir 0.5 MG tablet Take 1 tablet by mouth daily. 30 tablet 11 Mycophenolate mofetil (CELLCEPT) 250 MG capsule Take 2 capsules by mouth every 12 hours. 120 capsule 11 Nystatin [id number] UNIT/ML oral suspension Swish and swallow 1 mL 4 times daily. 120 mL 0 oxyCODONE 5 MG tablet Take 1 tablet by mouth every 6 hours as needed for up to 7 days. 28 tablet 0 Pantoprazole [address] tablet DR Take 1 tablet by mouth daily. 30 tablet 0 predniSONE 5 MG tablet Take 4 tablets by NG tube route daily for 4 days, THEN 3 tablets daily for 7days, THEN 2 tablets daily for 7 days, THEN 1 tablet daily for 7 days. (Patient taking differently:Take 4 tablets by route daily for 4 days, THEN 3 tablets daily for 7 days, THEN 2 tablets daily for7 days, THEN 1 tablet daily for 7 days.) 70 tablet 2 Sulfamethoxazole-trimethoprim 800-160 MG per tablet Take 1 tablet by mouth every 24 hours. 30 tablet 11 Tacrolimus (PROGRAF) 1 MG capsule Take 5 capsules by mouth every 12 hours. 300 capsule 5 valGANciclovir 450 MG tablet Take 1 tablet by mouth 2 times daily. 60 tablet 2 No current facility-administered medications for this visit. Allergies: Patient has no known allergies. Review of Systems: PREP SHEET FOR LIVER SURGERY & TRANSPLANT HEPATOLOGY CLINIC Patient Name: Jc Dunaway ([id number]) Pump Installation And Servicer: Shanell Helms Transplant Field Aide: Babs Marley IMMUNOSUPPRESSION & LAB INFORMATION On Prednisone? yes on a taper Current Immunosuppressive Medication(s) Immunosuppressive Agents Mycophenolate mofetil (CELLCEPT) 250 MG capsule Take 2 capsules by mouth every 12 hours. Tacrolimus (PROGRAF) 1 MG capsule Take 4 capsules by mouth every 12 hours. Current lab frequency ordered: Twice a week Labs needed in clinic today? Yes - Hep C PCR (missed by OP lab) (if a K/L please review Nephrology protocol for 1st year lab schedule) New standing lab order needed? no Preferred lab: [facility] - [address] - [place] [address] [facility] [address] COORDINATOR NOTES FOR APPOINTMENT: - 05/25/2024: DDLT with janay-en-y choledochojejunostomy - 06/03/2024: ex lap, small bowel pelvic adhesion and partial dehiscence of CDJ; revision of choledochojejunostomy - Next appointment: 07/13/2024 Cici De La Cruz APRN-FILTER TIP CATCHER - Transition to Hepatology: 08/08/2024 TRANSPLANT HEPATOLOGY 5, [facility] INFORMATION ON TRANSPLANTED ORGAN COMMENTS Type of Transplant: Liver Date of Transplant: 05/25/2024 Time elapsed since transplant: 17 day(s) Primary Disease: Primary Sclerosing Cholangitis: Ulcerative Colitis Donor Type: Donation after Circulatory Induction Therapy Used: Steroid Taper Risk Criteria Present: yes [place] Protocol Labs First set due AFTER: 06/22/2024 and BEFORE: 07/20/2024 Date 1st set of protocol labs completed: HBV DNA, HBV sAg, and HIV completed 06/23/24 Hep C PCR missed - due today Second set due AFTER 04/25/2025 and BEFORE: 06/24/2025 Date 2nd set of protocol labs completed: DIALYSIS CVC / OTHER LINES OR DRAINS PRESENT AT DISCHARGE Type: PICC Location: Right arm Date removed: 06/24/24 CMV & EBV SEROLOGIES AND FOLLOW UP COMMENTS CMV IgG Donor / Recipient: Donor: Positive Recipient: Lab Results Component Value Date CMVIGG Negative 05/25/2024 Lab monitoring at this time: no On an anti-viral? yes Dose: Valcyte 450mg BID Date to discontinue: 08/25/2024 EBV IgG Donor / Recipient Donor: Positive Recipient: Lab Results Component Value Date EBVVCAIGG Positive (A) 05/25/2024 Lab monitoring required: no FOLLOW UP FOR HCV AND HBV DONORS COMMENTS Hepatitis C+/MYLA- donor? no Lab monitoring required: no Hepatitis C+/MYLA+ donor? no Patient w/history of HBV or Donor HBV core +? yes Anti-viral prescribed: Entecavir Current dose: 0.5mg Daily HBV DNA & sAg due Q6 months Most recent results: DUE: October 2024 INTERMEDIATE IMAGING & PROCEDURE FOLLOW UP COMMENTS History of HCC: PATH in process at time of appointment If yes -- [place] score: Frequency imaging is due: Abdominal MRI or CT & non-contrast chest CT Last imaging done: Next imaging due: Scheduled? Biliary Stent or drain: no Date of last procedure: Next procedure due: Physical Exam Vital Signs: BP 128/81 (BP Location: Right arm, BP Position: Sitting) Pulse 94 Temp 98 F (36.7 C) (Temporal) Wt 45.5 kg (100 lb 4.8 oz) BMI 16.19 kg/m Smoking Status Never Body mass index is 16.19 kg/m . General: Well-developed, well-nourished. No acute distress HEENT: Atraumatic, normocephalic, extra ocular muscles intact. No scleral icterus. Oropharynx is clear without mucosal lesions (ulcers), No scalp or ear lesions. Neck: without masses Heart: regular rate and rhythm Lungs: Clear Abdomen: Soft, non-tender, non-distended, positive bowel sounds. No pain Extremities: Upper and Lower extremities non-tender, no peripheral edema Skin: no lesions Lymph: no adenopathy Neuro: Alert and oriented to person, place and time; Motor and sensory grossly intact, Ambulation normal Laboratory Data: WBC, MANUAL ENTER Date Value Ref Range Status 06/30/2024 5.7 Final 06/27/2024 6.6 Final 06/23/2024 7.3 Final Hemoglobin (HGB), MANUAL ENTER Date Value Ref Range Status 06/30/2024 11.1 Final 06/27/2024 11.2 Final 06/23/2024 10.7 Final HEMATOCRIT (HCT), MANUAL ENTER Date Value Ref Range Status 06/30/2024 34.6 Final 06/27/2024 35.0 Final 06/23/2024 33.1 Final PLATELETS, MANUAL ENTER Date Value Ref Range Status 06/30/2024 498 Final 06/27/2024 449 Final 06/23/2024 432 Final SODIUM (NA), MANUAL ENTER Date Value Ref Range Status 06/30/2024 139 mmol/L Final 06/27/2024 140 mmol/L Final 06/23/2024 137 mmol/L Final Chloride (CL), MANUAL ENTER Date Value Ref Range Status 06/30/2024 103 Final 06/27/2024 103 Final 06/23/2024 101 Final Blood Urea Nitrogen (BUN), MANUAL ENTER Date Value Ref Range Status 06/30/2024 22 Final 06/27/2024 23 Final 06/23/2024 23 Final POTASSIUM (K+), MANUAL ENTER Date Value Ref Range Status 06/30/2024 4.5 Final 06/27/2024 4.5 Final 06/23/2024 4.4 Final HCO3 Date Value Ref Range Status 06/04/2024 19 (L) 22 - 28 mmol/L Final 06/03/2024 18 (L) 22 - 28 mmol/L Final 06/03/2024 17 (L) 22 - 28 mmol/L Final CREATININE, SERUM, MANUAL ENTER Date Value Ref Range Status 06/30/2024 0.72 Final 06/27/2024 0.72 Final 06/23/2024 0.89 Final GLUCOSE, MANUAL ENTER Date Value Ref Range Status 06/30/2024 91 Final 06/27/2024 100 Final 06/23/2024 111 Final PT Date Value Ref Range Status 06/10/2024 13.7 11.9 - 14.2 sec Final 06/09/2024 13.9 11.9 - 14.2 sec Final 06/08/2024 14.6 (H) 11.9 - 14.2 sec Final PTT Date Value Ref Range Status 06/10/2024 29.9 24.0 - 34.3 sec Final 06/09/2024 29.6 24.0 - 34.3 sec Final 06/08/2024 29.3 24.0 - 34.3 sec Final Total Protein Date Value Ref Range Status 06/10/2024 5.0 (L) 6.4 - 8.3 g/dL Final 06/09/2024 5.0 (L) 6.4 - 8.3 g/dL Final 06/09/2024 5.0 (L) 6.4 - 8.3 g/dL Final ALBUMIN, MANUAL ENTER Date Value Ref Range Status 06/30/2024 2.7 Final 06/27/2024 3.8 Final 06/23/2024 3.6 Final AST, MANUAL ENTER Date Value Ref Range Status 06/30/2024 23 Final 06/27/2024 20 Final 06/23/2024 21 Final ALT, MANUAL ENTER Date Value Ref Range Status 06/30/2024 14 Final 06/27/2024 20 Final 06/23/2024 20 Final GGT, MANUAL ENTER Date Value Ref Range Status 06/27/2024 28 Final 06/20/2024 25 Final 06/16/2024 29 Final Bilirubin, Total, MANUAL ENTER Date Value Ref Range Status 06/30/2024 0.38 Final CALCIUM (CA), MANUAL ENTER Date Value Ref Range Status 06/30/2024 9.2 Final 06/27/2024 9.5 Final 06/23/2024 9.2 Final Phosphate (PO4), Manual Enter Date Value Ref Range Status 06/30/2024 4.0 Final 06/27/2024 3.3 Final 06/23/2024 3.4 Final MAGNESIUM (MG), MANUAL ENTER Date Value Ref Range Status 06/30/2024 1.9 Final 06/27/2024 1.8 Final 06/23/2024 1.9 Final ,INR/Prothrombin Time Lab Results Component Value Date INR 1.1 06/10/2024 Assessment Jc Dunaway is a 58 y.o. male who presents to the [facility] posttransplant clinic for postoperative and immunosuppression evaluation. his transplant liver organ function is good. Immunosuppression medications are appropriate. Jc is currently taking the following immunosuppression medication(s): Current Immunosuppressive Medication(s) Immunosuppressive Agents Mycophenolate mofetil (CELLCEPT) 250 MG capsule Take 2 capsules by mouth every 12 hours. Tacrolimus (PROGRAF) 1 MG capsule Take 5 capsules by mouth every 12 hours. Plan: Routine blood draws will be 3d. We will see the patient in the posttransplant clinic in 3wk. Doing well Gaining weight Mary out I have reviewed his extensive medical, surgical, and had a detailed discussion with the patient. All his questions were answered. [facility]* Patient Instructions* Meera Moon RN - 07/04/2024 2:00 PM EDT - [place] removed today in clinic. - Appointment 07/13/2024 with Cici De La Cruz APRN-FILTER TIP CATCHER will be via [place] video visit. - Continue checking labs twice weekly. - No medication changes today. [facility] History of Present illness Narrative* Shanell Helms RN - 06/20/2024 2:30 PM EDT Images from the original note were not included. PREP SHEET FOR LIVER SURGERY & TRANSPLANT HEPATOLOGY CLINIC Patient Name: Jc Dunaway ([id number]) Pump Installation And Servicer: Shanell Helms Transplant Field Aide: Babs Marley IMMUNOSUPPRESSION & LAB INFORMATION On Prednisone? yes on a taper Current Immunosuppressive Medication(s) Immunosuppressive Agents Mycophenolate mofetil (CELLCEPT) 250 MG capsule Take 2 capsules by mouth every 12 hours. Tacrolimus (PROGRAF) 1 MG capsule Take 3 capsules by mouth daily AND 2 capsules at bedtime as directed Current lab frequency ordered: Twice a week Labs needed in clinic today? no (if a K/L please review Nephrology protocol for 1st year lab schedule) New standing lab order needed? no Preferred lab: [facility] - [address] - [place] [id number] [facility] [address]. [facility] [id number] COORDINATOR NOTES FOR APPOINTMENT: - 05/25/2024: DDLT with janay-en-y choledochojejunostomy - 06/03/2024: ex lap, small bowel pelvic adhesion and partial dehiscence of CDJ; revision of choledochojejunostomy - Should have completed antibiotics yesterday. Will need to schedule PICC removal. - Next appointment: 07/13/2024 Cici De La Cruz APRN-FILTER TIP CATCHER - Transition to Hepatology: 08/08/2024 TRANSPLANT HEPATOLOGY [address] [place] [address] INFORMATION ON TRANSPLANTED ORGAN COMMENTS Type of Transplant: Liver Date of Transplant: 05/25/2024 Time elapsed since transplant: 17 day(s) Primary Disease: Primary Sclerosing Cholangitis: Ulcerative Colitis Donor Type: Donation after Circulatory Induction Therapy Used: Steroid Taper Risk Criteria Present: yes [place] Protocol Labs First set due AFTER: 06/22/2024 and BEFORE: 07/20/2024 Date 1st set of protocol labs completed: Second set due AFTER 04/25/2025 and BEFORE: 06/24/2025 Date 2nd set of protocol labs completed: Any Donor Derived Concerns? YES Donor colonized with naeem auris and liver perfusate cx positive naeem auris. Blood cultures 05/30 no growth. ID consulted and plan was to extend protocol micafungin to 2 week course. DIALYSIS CVC / OTHER LINES OR DRAINS PRESENT AT DISCHARGE Type: PICC Location: Right arm peritoneal culture positive for ESBL e. Coli continue ertapenem and micafungin x 14 days, EOT 06/19/2024 Date removed: CMV & EBV SEROLOGIES AND FOLLOW UP COMMENTS CMV IgG Donor / Recipient: Donor: Positive Recipient: Lab Results Component Value Date CMVIGG Negative 05/25/2024 Lab monitoring at this time: no On an anti-viral? yes Dose: Valcyte 450mg BID Date to discontinue: 08/25/2024 EBV IgG Donor / Recipient Donor: Positive Recipient: Lab Results Component Value Date EBVVCAIGG Positive (A) 05/25/2024 Lab monitoring required: no FOLLOW UP FOR HCV AND HBV DONORS COMMENTS Hepatitis C+/MYLA- donor? no Lab monitoring required: no Hepatitis C+/MYLA+ donor? no Patient w/history of HBV or Donor HBV core +? yes Anti-viral prescribed: Entecavir Current dose: 0.5mg Daily HBV DNA & sAg due Q6 months Most recent results: DUE: October 2024 STEAM ENGINEER IMAGING & PROCEDURE FOLLOW UP COMMENTS History of HCC: PATH in process at time of appointment If yes -- [place] score: Frequency imaging is due: Abdominal MRI or CT & non-contrast chest CT Last imaging done: Next imaging due: Scheduled? Biliary Stent or drain: no Date of last procedure: Next procedure due: * Valeria Muller [facility] - 06/20/2024 2:30 PM EDT Department of Pharmacy Transplant Note Patient: Jc Dunaway Patient is a 58 y.o. year old male with a history of transplant on 05/25/2024 (Liver) for Primary Sclerosing Cholangitis: Ulcerative Colitis. Course: - RNY choledochojejunostomy at time of transplant (PMH: colon cancer and total proctocolectomy) - Ieus noted on 06/01, NGT placed at this time, removed on 06/06 for obstruction resolution - 06/03 take back to OR for washout and revision of anastamosis site - 06/03 peritoneal cultures positive for ESBL E.coli and C.auris on ertapenem and micafungin until 06/17 Complete List of Medications reported by the patient at today's visit: Current Outpatient Medications Medication Sig aspirin 81 MG Chew Tab chewable tablet Chew 1 tablet daily. Entecavir 0.5 MG tablet Take 1 tablet by mouth daily. Mycophenolate mofetil (CELLCEPT) 250 MG capsule Take 2 capsules by mouth every 12 hours. Nystatin 230807 UNIT/ML oral suspension Swish and swallow 1 mL 4 times daily. oxyCODONE 5 MG tablet Take 1 tablet by mouth every 6 hours as needed for up to 7 days. Pantoprazole [address] tablet DR Take 1 tablet by mouth daily. predniSONE 5 MG tablet Take 4 tablets by NG tube route daily for 4 days, THEN 3 tablets daily for 7days, THEN 2 tablets daily for 7 days, THEN 1 tablet daily for 7 days. (Patient taking differently:Take 4 tablets by route daily for 4 days, THEN 3 tablets daily for 7 days, THEN 2 tablets daily for7 days, THEN 1 tablet daily for 7 days.) Sulfamethoxazole-trimethoprim 800-160 MG per tablet Take 1 tablet by mouth every 24 hours. Tacrolimus (PROGRAF) 1 MG capsule Take 4 capsules by mouth every 12 hours. valGANciclovir 450 MG tablet Take 1 tablet by mouth 2 times daily. Calcium Carbonate-Vitamin D (CALCIUM-CARB 600 + D PO) Take 1 tablet by mouth daily. Medication focused review of systems (common side effects of immunosuppression) Patient confirms no symptoms or adverse effects Immunosuppression focused assessment of laboratory values: The pharmacist's assessment of the liver function tests: alk phos/bili increased on 06/13/24 labs Lab Results Component Value Date/Time AST, MANUAL ENTER 29 06/13/2024 0848 AST, MANUAL ENTER 139 04/28/2024 1704 AST 16 06/10/2024 0546 AST 13 06/09/2024 0839 AST 18 06/09/2024 0601 ALT, MANUAL ENTER 30 06/13/2024 0848 ALT, MANUAL ENTER 99 04/28/2024 1704 ALT 21 06/10/2024 0546 ALT 22 06/09/2024 0839 ALT 22 06/09/2024 0601 ALKALINE PHOSPHATASE, MANUAL ENTER 215 06/13/2024 0848 ALKALINE PHOSPHATASE, MANUAL ENTER 616 04/28/2024 1704 ALP 145 (H) 06/10/2024 0546 ALP 120 06/09/2024 0839 ALP 121 06/09/2024 0601 Bilirubin Direct, Manual Enter 0.51 06/13/2024 0848 Bilirubin Direct, Manual Enter 3.11 04/28/2024 1704 Bilirubin Direct 0.4 (H) 06/10/2024 0546 Bilirubin Direct 0.5 (H) 06/09/2024 0839 Bilirubin Direct 0.4 (H) 06/09/2024 0601 Bilirubin, Total, MANUAL ENTER 0.82 06/13/2024 0848 Bilirubin, Total, MANUAL ENTER 3.96 04/28/2024 1704 Bilirubin Total 1.1 06/10/2024 0546 Bilirubin Total 1.2 06/09/2024 0839 Bilirubin Total 1.3 06/09/2024 0601 ` Estimated Creatinine Clearance: 56 mL/min (by C-G formula based on SCr of 0.88 mg/dL). Maintenance Immunosuppression Current Immunosuppressive Medication(s) IS Agent Sig Comments tacrolimus 4 mg every q12hr at 9 AM/PM Goal level: 7-9 ng/mL Last dose change: 06/16 increased from 3 mg in the morning and 2 mg in the evening mycophenolate 500 mg q12hr 06/03 decreased from 1000 mg BID for C. Auris infection prednisone 15 mg (06/14 to 06/20) 10 mg (06/21 to 06/27) 5 mg (06/28 and on) Remain on 5 mg daily for PSC Has patient missed any doses of medication in the last 4 weeks? No Has patient taken meds more than 2 hours before or after the prescribed dosing time in the last 4 weeks? No Has the patient reported cannabis use? No Recent immunosuppression drug levels Lab Results Component Value Date/Time Tacrolimus, Trough 7.1 06/10/2024 0546 Tacrolimus, Trough 8.8 06/09/2024 0839 Tacrolimus, Trough 8.6 06/09/2024 0601 TACROLIMUS LEVEL(TROUGH),MANUAL ENTER 4.9 06/13/2024 0848 Based on the pharmacist's assessment, the most recent immunosuppression levels are not reflective of most recent dose change. When did you take your last dose of tacrolimus: This morning. Confirmed patient took after labs. Recommend: Continue to monitor. Infection Prophylaxis, Monitoring, & Treatment Misc Infections: - ESBL E.coli and C.auris from donor cultures: on jorge and ertapenem until 06/17 Current Anti-Infective Medication(s) Anti-Infective Agent Sig Planned Stop Date & Comments Nystatin 100,000 units four times daily End date: 06/25/24 TMP-SMZ (Bactrim) 800 mg - 160 mg (DS) once daily Valganciclovir CMV Risk: +/- 450 mg twice daily End date: 11/25/24 Entecavir 0.5 mg daily Recipients of organs from anti-HBc positive donors should undergo monitoring with liver enzymes, HBsAg, and HBV DNA at least every 3 months for at least 12 months post-transplant No results found for: CMVPCR Blood Glucose Not diabetic Lab Results Component Value Date GLUCOSE 97 06/13/2024 GLUCOSE 93 06/10/2024 GLUCOSE 126 06/09/2024 Lab Results Component Value Date HGBA1C 5.2 05/25/2024 HGBA1C 5.2 03/15/2024 BG is within normal limits based on routine labs. Recommend: Continue to monitor. Cardiovascular Risk Blood Pressure Assessment Most recent clinic BP assessments: BP Readings from Last 3 Encounters: 06/20/24 114/68 06/15/24 94/50 06/13/24 125/77 Pulse Readings from Last 3 Encounters: 06/20/24 92 06/15/24 83 06/13/24 87 BP at home has been within normal limits based on home log review. Recommend: Continue to monitor. Medication Changes made during clinic visit in consultation with provider: Stop nystatin 06/25/24 Name: Valeria Muller RPH Phone: [phone] Date/Time: 06/20/2024 3:19 PM * Dalia Thomas MD - 06/20/2024 2:30 PM EDT Images from the original note were not included. Post-Tx Evaluation Liver 06/20/2024 Jc Dunaway [id number] Chief Complaint: Chief Complaint Patient presents with Liver Recipient Follow-up Surgical Follow-up Staple Removal Condition Update Lab Review Patient Education HPI: I saw Jc Dunaway in our post transplant office for a 1 month post liver transplant visit. 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 Past Medical History: Diagnosis Date Cirrhosis of liver not due to alcohol 03/15/2024 Colon cancer 10/2020 Primary sclerosing cholangitis Ulcerative colitis diagnosed in the 80s- no surgery Past Surgical History: Procedure Laterality Date LAPAROTOMY EXPLORATORY N/A 06/03/2024 Laterality: N/A; Surgeon: Dalia Thomas MD; Location: [facility] MA[facility] OR LIVER TRANSPLANT, ORTHOTOPIC N/A 05/25/2024 Laterality: N/A; Surgeon: Dalia Thomas MD; Location: [facility] EXAM UNDER ANESTHESIA ANORECTAL N/A 02/28/2022 Laterality: N/A; Surgeon: Miroslava Joiner MD; Location: [facility] PERIOP ENDOSCOPY SMALL INTESTINE POUCH DIAGNOSTIC N/A 02/28/2022 Laterality: N/A; Surgeon: Miroslava Joiner MD; Location: [facility] PERIOP LOOP ILEOSTOMY CLOSURE N/A 06/04/2021 Laterality: N/A; Surgeon: Miroslava Joiner MD; Location: [facility] ENDOSCOPY SMALL INTESTINE POUCH DIAGNOSTIC N/A 04/22/2021 Laterality: N/A; Surgeon: Miroslava Joiner MD; Location: [facility] ENDOSCOPY COLOPROCTECTOMY TOTAL W/ LOOP ILEOSTOMY OR CREATION ILEAL RESERVOIR LAPAROSCOPIC N/A 02/12/2021 Laterality: N/A; Surgeon: Miroslava Joiner MD; Location: [facility] MA[facility] OR SIGMOIDOSCOPY DIAGNOSTIC N/A 02/04/2021 Laterality: N/A; Surgeon: Miroslava Joiner MD; Location: [facility] ENDOSCOPY HIP REPLACEMENT Left 2005 COLONOSCOPY DIAGNOSTIC Nov 20202001 Social History Social History Socioeconomic History Marital status: Spouse name: Not on file Number of children: Not on file Years of education: Not on file Highest education level: Not on file Occupational History Not on file Tobacco Use Smoking status: Never Smokeless tobacco: Never Vaping Use Vaping status: Never Used Substance and Sexual Activity Alcohol use: Not Currently Drug use: Not Currently Sexual activity: Not on file Other Topics Concern Not on file Social History Narrative Not on file Social Drivers of Health Financial Resource Strain: Low Risk (05/26/2024) Overall Financial Resource Strain (CARDIA) Difficulty of Paying Living Expenses: Not hard at all Food Insecurity: No Food Insecurity (05/26/2024) NCSS - Food Insecurity Worried About Running Out of Food in the Last Year: No Ran Out of Food in the Last Year: No Transportation Needs: No Transportation Needs (05/26/2024) NCSS - Transportation Lack of Transportation: No Physical Activity: Not on file Stress: Not on file Social Connections: Not on file Personal Safety: Not At Risk (05/26/2024) NCSS - Interpersonal Safety Feels Physically and Emotionally Safe: Yes Physically Hurt by Someone: No Humiliated or Emotionally Abused by Someone: No Housing Stability: Not At Risk (05/26/2024) NCSS - Housing/Utilities Has Housing: Yes Worried About Losing Housing: No Unable to Get Utilities: No No family history on file. Medications: Current Outpatient Medications Medication Sig Dispense Refill alteplase 2 MG Recon Soln 2 mg by Intracatheter route once as needed for Catheter Clearance (For anoccluded line) for up to 1 dose. 1 Each 0 aspirin 81 MG Chew Tab chewable tablet Chew 1 tablet daily. 30 tablet 2 Entecavir 0.5 MG tablet Take 1 tablet by mouth daily. 30 tablet 11 Mycophenolate mofetil (CELLCEPT) 250 MG capsule Take 2 capsules by mouth every 12 hours. 120 capsule 11 Nystatin 199229 UNIT/ML oral suspension Swish and swallow 1 mL 4 times daily. 120 mL 0 oxyCODONE 5 MG tablet Take 1 tablet by mouth every 6 hours as needed for up to 7 days. 28 tablet 0 Pantoprazole [address] tablet DR Take 1 tablet by mouth daily. 30 tablet 0 predniSONE 5 MG tablet Take 4 tablets by NG tube route daily for 4 days, THEN 3 tablets daily for 7days, THEN 2 tablets daily for 7 days, THEN 1 tablet daily for 7 days. 70 tablet 2 Sulfamethoxazole-trimethoprim 800-160 MG per tablet Take 1 tablet by mouth every 24 hours. 30 tablet 11 Tacrolimus (PROGRAF) 1 MG capsule Take 4 capsules by mouth every 12 hours. 240 capsule 5 valGANciclovir 450 MG tablet Take 1 tablet by mouth 2 times daily. 60 tablet 2 No current facility-administered medications for this visit. Allergies: Patient has no known allergies. Review of Systems: PREP SHEET FOR LIVER SURGERY & TRANSPLANT HEPATOLOGY CLINIC Patient Name: Jc Dunaway ([id number]) Pump Installation And Servicer: Shanell Helms Transplant Field Aide: Babs Marley IMMUNOSUPPRESSION & LAB INFORMATION On Prednisone? yes on a taper Current Immunosuppressive Medication(s) Immunosuppressive Agents Mycophenolate mofetil (CELLCEPT) 250 MG capsule Take 2 capsules by mouth every 12 hours. Tacrolimus (PROGRAF) 1 MG capsule Take 3 capsules by mouth daily AND 2 capsules at bedtime as directed Current lab frequency ordered: Twice a week Labs needed in clinic today? no (if a K/L please review Nephrology protocol for 1st year lab schedule) New standing lab order needed? no Preferred lab: [facility] - [address] - [place] [address] [facility] [id number] COORDINATOR NOTES FOR APPOINTMENT: - 05/25/2024: DDLT with janay-en-y choledochojejunostomy - 06/03/2024: ex lap, small bowel pelvic adhesion and partial dehiscence of CDJ; revision of choledochojejunostomy - Should have completed antibiotics yesterday. Will need to schedule PICC removal. - Next appointment: 07/13/2024 Cici De La Cruz APRN-FILTER TIP CATCHER - Transition to Hepatology: 08/08/2024 [facility] , [facility] INFORMATION ON TRANSPLANTED ORGAN COMMENTS Type of Transplant: Liver Date of Transplant: 05/25/2024 Time elapsed since transplant: 17 day(s) Primary Disease: Primary Sclerosing Cholangitis: Ulcerative Colitis Donor Type: Donation after Circulatory Induction Therapy Used: Steroid Taper Risk Criteria Present: yes [place] Protocol Labs First set due AFTER: 06/22/2024 and BEFORE: 07/20/2024 Date 1st set of protocol labs completed: Second set due AFTER 04/25/2025 and BEFORE: 06/24/2025 Date 2nd set of protocol labs completed: Any Donor Derived Concerns? YES Donor colonized with naeem auris and liver perfusate cx positive naeem auris. Blood cultures 3/31 no growth. ID consulted and plan was to extend protocol micafungin to 2 week course. DIALYSIS CVC / OTHER LINES OR DRAINS PRESENT AT DISCHARGE Type: PICC Location: Right arm peritoneal culture positive for ESBL e. Coli continue ertapenem and micafungin x 14 days, EOT 06/19/2024 Date removed: CMV & EBV SEROLOGIES AND FOLLOW UP COMMENTS CMV IgG Donor / Recipient: Donor: Positive Recipient: Lab Results Component Value Date CMVIGG Negative 05/25/2024 Lab monitoring at this time: no On an anti-viral? yes Dose: Valcyte 450mg BID Date to discontinue: 08/25/2024 EBV IgG Donor / Recipient Donor: Positive Recipient: Lab Results Component Value Date EBVVCAIGG Positive (A) 05/25/2024 Lab monitoring required: no FOLLOW UP FOR HCV AND HBV DONORS COMMENTS Hepatitis C+/MYLA- donor? no Lab monitoring required: no Hepatitis C+/MYLA+ donor? no Patient w/history of HBV or Donor HBV core +? yes Anti-viral prescribed: Entecavir Current dose: 0.5mg Daily HBV DNA & sAg due Q6 months Most recent results: DUE: October 2024 STEAM ENGINEER IMAGING & PROCEDURE FOLLOW UP COMMENTS History of HCC: PATH in process at time of appointment If yes -- [place] score: Frequency imaging is due: Abdominal MRI or CT & non-contrast chest CT Last imaging done: Next imaging due: Scheduled? Biliary Stent or drain: no Date of last procedure: Next procedure due: Physical Exam Vital Signs: BP 114/68 Pulse 92 Temp 97.2 F (36.2 C) (Temporal) Wt 44 kg (97 lb 1.6 oz) BMI15.67 kg/m Smoking Status Never Body mass index is 15.67 kg/m . General: Well-developed, well-nourished. No acute distress HEENT: Atraumatic, normocephalic, extra ocular muscles intact. No scleral icterus. Oropharynx is clear without mucosal lesions (ulcers), No scalp or ear lesions. Neck: without masses Heart: regular rate and rhythm Lungs: Clear Abdomen: Soft, non-tender, non-distended, positive bowel sounds. No pain Extremities: Upper and Lower extremities non-tender, no peripheral edema Skin: no lesions Lymph: no adenopathy Neuro: Alert and oriented to person, place and time; Motor and sensory grossly intact, Ambulation normal Laboratory Data: WBC, MANUAL ENTER Date Value Ref Range Status 06/16/2024 7.8 Final 06/13/2024 10.1 Final WBC Count Date Value Ref Range Status 06/10/2024 9.04 3.73 - 10.10 K/uL Final Hemoglobin (HGB), MANUAL ENTER Date Value Ref Range Status 06/16/2024 10.3 Final 06/13/2024 10.5 Final Hemoglobin Date Value Ref Range Status 06/10/2024 10.0 (L) 13.4 - 16.8 g/dL Final HEMATOCRIT (HCT), MANUAL ENTER Date Value Ref Range Status 06/16/2024 31.5 Final 06/13/2024 32.3 Final Hematocrit Date Value Ref Range Status 06/10/2024 30.8 (L) 39.6 - 48.8 % Final PLATELETS, MANUAL ENTER Date Value Ref Range Status 06/16/2024 621 Final 06/13/2024 530 Final Platelet Count Date Value Ref Range Status 06/10/2024 205 146 - 337 K/uL Final SODIUM (NA), MANUAL ENTER Date Value Ref Range Status 06/13/2024 131 mmol/L Final Sodium Date Value Ref Range Status 06/10/2024 130 (L) 135 - 145 mmol/L Final 06/09/2024 131 (L) 135 - 145 mmol/L Final Chloride (CL), MANUAL ENTER Date Value Ref Range Status 06/13/2024 99 Final Chloride Date Value Ref Range Status 06/10/2024 100 98 - 108 mmol/L Final 06/09/2024 101 98 - 108 mmol/L Final Blood Urea Nitrogen (BUN), MANUAL ENTER Date Value Ref Range Status 06/13/2024 19 Final BUN Date Value Ref Range Status 06/10/2024 18 7 - 25 mg/dL Final 06/09/2024 20 7 - 25 mg/dL Final POTASSIUM (K+), MANUAL ENTER Date Value Ref Range Status 06/13/2024 4.3 Final Potassium Date Value Ref Range Status 06/10/2024 4.8 3.5 - 5.0 mmol/L Final 06/09/2024 4.5 3.5 - 5.0 mmol/L Final HCO3 Date Value Ref Range Status 06/04/2024 19 (L) 22 - 28 mmol/L Final 06/03/2024 18 (L) 22 - 28 mmol/L Final 06/03/2024 17 (L) 22 - 28 mmol/L Final CREATININE, SERUM, MANUAL ENTER Date Value Ref Range Status 06/13/2024 0.88 Final Creatinine Date Value Ref Range Status 06/10/2024 0.71 0.70 - 1.30 mg/dL Final 06/09/2024 0.77 0.70 - 1.30 mg/dL Final GLUCOSE, MANUAL ENTER Date Value Ref Range Status 06/13/2024 97 Final Glucose Date Value Ref Range Status 06/10/2024 93 Nonfastin-179 mg/dL; Fastin-99 mg/dL Final 06/09/2024 126 Nonfastin-179 mg/dL; Fastin-99 mg/dL Final PT Date Value Ref Range Status 06/10/2024 13.7 11.9 - 14.2 sec Final 06/09/2024 13.9 11.9 - 14.2 sec Final 06/08/2024 14.6 (H) 11.9 - 14.2 sec Final PTT Date Value Ref Range Status 06/10/2024 29.9 24.0 - 34.3 sec Final 06/09/2024 29.6 24.0 - 34.3 sec Final 06/08/2024 29.3 24.0 - 34.3 sec Final Total Protein Date Value Ref Range Status 06/10/2024 5.0 (L) 6.4 - 8.3 g/dL Final 06/09/2024 5.0 (L) 6.4 - 8.3 g/dL Final 06/09/2024 5.0 (L) 6.4 - 8.3 g/dL Final Albumin Date Value Ref Range Status 06/10/2024 3.0 (L) 3.5 - 5.0 g/dL Final 06/09/2024 3.0 (L) 3.5 - 5.0 g/dL Final ALBUMIN, MANUAL ENTER Date Value Ref Range Status 06/13/2024 3.4 Final AST, MANUAL ENTER Date Value Ref Range Status 06/13/2024 29 Final AST Date Value Ref Range Status 06/10/2024 16 10 - 39 U/L Final 06/09/2024 13 10 - 39 U/L Final ALT, MANUAL ENTER Date Value Ref Range Status 06/13/2024 30 Final ALT Date Value Ref Range Status 06/10/2024 21 10 - 52 U/L Final 06/09/2024 22 10 - 52 U/L Final GGT, MANUAL ENTER Date Value Ref Range Status 06/13/2024 31 Final Bilirubin, Total, MANUAL ENTER Date Value Ref Range Status 06/13/2024 0.82 Final CALCIUM (CA), MANUAL ENTER Date Value Ref Range Status 06/13/2024 8.7 Final Calcium Date Value Ref Range Status 06/10/2024 7.8 (L) 8.6 - 10.5 mg/dL Final 06/09/2024 8.1 (L) 8.6 - 10.5 mg/dL Final Phosphate (PO4), Manual Enter Date Value Ref Range Status 06/13/2024 2.1 Final Phosphorous Date Value Ref Range Status 06/10/2024 1.7 (L) 2.2 - 4.6 mg/dL Final 06/09/2024 1.9 (L) 2.2 - 4.6 mg/dL Final MAGNESIUM (MG), MANUAL ENTER Date Value Ref Range Status 06/13/2024 1.7 Final Magnesium Date Value Ref Range Status 06/10/2024 1.9 1.6 - 2.6 mg/dL Final 06/09/2024 2.5 1.6 - 2.6 mg/dL Final ,INR/Prothrombin Time Lab Results Component Value Date INR 1.1 06/10/2024 Assessment Jc Dunaway is a 58 y.o. male who presents to the [facility] posttransplant clinic for postoperative and immunosuppression evaluation. his transplant liver organ function is good. Immunosuppression medications are appropriate. Jc is currently taking the following immunosuppression medication(s): Current Immunosuppressive Medication(s) Immunosuppressive Agents Mycophenolate mofetil (CELLCEPT) 250 MG capsule Take 2 capsules by mouth every 12 hours. Tacrolimus (PROGRAF) 1 MG capsule Take 4 capsules by mouth every 12 hours. Plan: Routine blood draws will be 3d. We will see the patient in the posttransplant clinic in 2wk. Doing well Eating better after exp lap for bowel obstruction Mary out 2 wk I have reviewed his extensive medical, surgical, and had a detailed discussion with the patient. All his questions were answered. [facility] Instructions* Patient Instructions* Shanell Helms RN - 06/20/2024 2:30 PM EDT - Stop Nystatin. - Continue with twice weekly labs. - Next appointment: 07/04/2024 Dalia Thomas MD for staple removal. - Return to clinic on 07/13/2024 with Cici De La Cruz APRN-FILTER TIP CATCHER. [facility] History of Present illness Narrative* Eden Paniagua - 06/15/2024 3:00 PM EDT Patient has verified full name and . * Carmen Castellanos MD - 06/15/2024 3:00 PM EDT Subjective Jc Dunaway is a 58 y.o. male who presents for Follow-up History of Present Illness The patient is a 58-year-old male who presents for discussion regarding his antibiotics. He was recently discharged from the hospital with a Peripherally Inserted Central Catheter (PICC) line and a two-week course of antibiotics, which were continued post-discharge. He reports no complications associated with the antibiotic therapy. The administration of the antibiotics is being managed at home, negating the need for a visiting nurse. He is not experiencing any fevers or chills. The dressing on the PICC line was changed on Thursday by Dr. Thomas's team during a follow-up visit, where they also confirmed that everything looked normal. He has an upcoming appointment scheduled for Thursday for the removal of the PICC line. Objective Blood pressure 94/50, pulse 83, height 1.676 m (5' 6), weight 43.7 kg (96 lb 6.4 oz), SpO2 96%. Physical Exam General: thin, chronically ill appearing, in NAD CV: regular rate Abdomen: non distended Lines: PICC line with no erythema nor drainage at exit site Neuro: speech fluent, responds to questions appropriately Results Reviewed in IHIS Assessment & Plan Encounter Diagnoses Name Primary? 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 A comprehensive discussion was held regarding the nature of Naeem auris, its potential impact on his health, and the necessary precautions to be taken. He was advised to monitor his overall health status, ensuring a gradual improvement as he recuperates from the hospitalization and surgery.Daily temperature checks were recommended, with instructions to report any readings exceeding 100.4degrees Fahrenheit. He was also encouraged to contact us should he experience any symptoms such as abdominal pain, nausea, or vomiting. Given his current condition, it is deemed appropriate to discontinue the shipment of antibiotics after 06/17/2024, and subsequently remove the PICC line. Communication with Dr. Thomas's team will be initiated to inform them of this plan. We contacted [facility] to notify them of the planned antibiotic stop date and also noted PICC removal plan for 06/20/24. Carmen Castellanos MD International Trade Teacher-Clinical Division of Infectious Diseases Pager #[phone] documented [facility] this [facility] History of Present illness Narrative* Shanell Helms RN - 06/13/2024 1:15 PM EDT Images from the original note were not included. PREP SHEET FOR LIVER SURGERY & TRANSPLANT HEPATOLOGY CLINIC Patient Name: Jc Dunaway ([id number]) Pump Installation And Servicer: Shanell Helms Transplant Field Aide: Babs Marley IMMUNOSUPPRESSION & LAB INFORMATION On Prednisone? yes on a taper Current Immunosuppressive Medication(s) Immunosuppressive Agents Mycophenolate mofetil (CELLCEPT) 250 MG capsule Take 2 capsules by mouth every 12 hours. Tacrolimus (PROGRAF) 1 MG capsule Take 3 capsules by mouth daily AND 2 capsules at bedtime as directed Current lab frequency ordered: Twice a week Labs needed in clinic today? no (if a K/L please review Nephrology protocol for 1st year lab schedule) New standing lab order needed? no Preferred lab: [facility] - [address] - [place] [address] [facility] [id number] COORDINATOR NOTES FOR APPOINTMENT: - First outpatient appointment - 05/25/2024: DDLT with janay-en-y choledochojejunostomy - 06/03/2024: ex lap, small bowel pelvic adhesion and partial dehiscence of CDJ; revision of choledochojejunostomy - Next appointment: needs next surgery appointment scheduled. - Transition to Hepatology: 08/08/2024 TRANSPLANT HEPATOLOGY 5, [facility] INFORMATION ON TRANSPLANTED ORGAN COMMENTS Type of Transplant: Liver Date of Transplant: 05/25/2024 Time elapsed since transplant: 17 day(s) Primary Disease: Primary Sclerosing Cholangitis: Ulcerative Colitis Donor Type: Donation after Circulatory Induction Therapy Used: Steroid Taper Risk Criteria Present: yes [place] Protocol Labs First set due AFTER: 06/22/2024 and BEFORE: 07/20/2024 Date 1st set of protocol labs completed: Second set due AFTER 04/25/2025 and BEFORE: 06/24/2025 Date 2nd set of protocol labs completed: Any Donor Derived Concerns? YES Donor colonized with naeem auris and liver perfusate cx positive naeem auris. Blood cultures 05/30 no growth. ID consulted and plan was to extend protocol micafungin to 2 week course. DIALYSIS CVC / OTHER LINES OR DRAINS PRESENT AT DISCHARGE Type: PICC Location: Right arm peritoneal culture positive for ESBL e. Coli continue ertapenem and micafungin x 14 days, EOT 06/19/2024 Date removed: CMV & EBV SEROLOGIES AND FOLLOW UP COMMENTS CMV IgG Donor / Recipient: Donor: Positive Recipient: Lab Results Component Value Date CMVIGG Negative 05/25/2024 Lab monitoring at this time: no On an anti-viral? yes Dose: Valcyte 450mg BID Date to discontinue: 08/25/2024 EBV IgG Donor / Recipient Donor: Positive Recipient: Lab Results Component Value Date EBVVCAIGG Positive (A) 05/25/2024 Lab monitoring required: no FOLLOW UP FOR HCV AND HBV DONORS COMMENTS Hepatitis C+/MYLA- donor? no Lab monitoring required: no Hepatitis C+/MYLA+ donor? no Patient w/history of HBV or Donor HBV core +? yes Anti-viral prescribed: Entecavir Current dose: 0.5mg Daily HBV DNA & sAg due Q6 months Most recent results: DUE: October 2024 STEAM ENGINEER IMAGING & PROCEDURE FOLLOW UP COMMENTS History of HCC: PATH in process at time of appointment If yes -- [place] score: Frequency imaging is due: Abdominal MRI or CT & non-contrast chest CT Last imaging done: Next imaging due: Scheduled? Biliary Stent or drain: no Date of last procedure: Next procedure due: * Deshawn Downey [facility] - 06/13/2024 1:15 PM EDT Department of Pharmacy Transplant Note Patient: Jc Dunaway Patient is a 58 y.o. year old male with a history of transplant on 05/25/2024 (Liver) for Primary Sclerosing Cholangitis: Ulcerative Colitis. Course: - RNY choledochojejunostomy at time of transplant (PMH: colon cancer and total proctocolectomy) - Ieus noted on 06/01, NGT placed at this time, removed on 06/06 for obstruction resolution - 06/03 take back to OR for washout and revision of anastamosis site - 06/03 peritoneal cultures positive for ESBL E.coli and C.auris on ertapenem and micafungin until 06/17 Complete List of Medications reported by the patient at today's visit: Current Outpatient Medications Medication Sig alteplase 2 MG Recon Soln 2 mg by Intracatheter route once as needed for Catheter Clearance (For anoccluded line) for up to 1 dose. aspirin 81 MG Chew Tab chewable tablet Chew 1 tablet daily. Entecavir 0.5 MG tablet Take 1 tablet by mouth daily. Ertapenem injection 1 g per dose, IV infusion every 24 hours. *diluent and final concentration at discretion of receiving pharmacy* hydrocortisone (Cortifoam) 10 % Foam Insert 1 applicator rectally every 12 hours as needed (inflammation). Micafungin injection 100 mg per dose, IV infusion every 24 hours. *diluent and final concentration at discretion of receiving pharmacy* Mycophenolate mofetil (CELLCEPT) 250 MG capsule Take 2 capsules by mouth every 12 hours. Nystatin 459434 UNIT/ML oral suspension Swish and swallow 1 mL 4 times daily. oxyCODONE 5 MG tablet Take 1 tablet by mouth every 6 hours as needed for up to 7 days. Pantoprazole [address] tablet DR Take 1 tablet by mouth daily. predniSONE 5 MG tablet Take 4 tablets by NG tube route daily for 4 days, THEN 3 tablets daily for 7days, THEN 2 tablets daily for 7 days, THEN 1 tablet daily for 7 days. Sulfamethoxazole-trimethoprim 800-160 MG per tablet Take 1 tablet by mouth every 24 hours. Tacrolimus (PROGRAF) 1 MG capsule Take 3 capsules by mouth daily AND 2 capsules at bedtime as directed valGANciclovir 450 MG tablet Take 1 tablet by mouth 2 times daily. Medication focused review of systems (common side effects of immunosuppression) Patient confirms no symptoms or adverse effects Immunosuppression focused assessment of laboratory values: The pharmacist's assessment of the liver function tests: stable within normal limits Lab Results Component Value Date/Time AST, MANUAL ENTER 139 04/28/2024 1704 AST 16 06/10/2024 0546 AST 13 06/09/2024 0839 AST 18 06/09/2024 0601 ALT, MANUAL ENTER 99 04/28/2024 1704 ALT 21 06/10/2024 0546 ALT 22 06/09/2024 0839 ALT 22 06/09/2024 0601 ALKALINE PHOSPHATASE, MANUAL ENTER 616 04/28/2024 1704 ALP 145 (H) 06/10/2024 0546 ALP 120 06/09/2024 0839 ALP 121 06/09/2024 0601 Bilirubin Direct, Manual Enter 3.11 04/28/2024 1704 Bilirubin Direct 0.4 (H) 06/10/2024 0546 Bilirubin Direct 0.5 (H) 06/09/2024 0839 Bilirubin Direct 0.4 (H) 06/09/2024 0601 Bilirubin, Total, MANUAL ENTER 3.96 04/28/2024 1704 Bilirubin Total 1.1 06/10/2024 0546 Bilirubin Total 1.2 06/09/2024 0839 Bilirubin Total 1.3 06/09/2024 0601 ` CrCl cannot be calculated (Unknown ideal weight.). Maintenance Immunosuppression Current Immunosuppressive Medication(s) IS Agent Sig Comments tacrolimus 3 mg in AM and 2 mg in PM q12hr at 9 AM/PM Goal level: 7-9 ng/mL Last dose change: 06/10 increased from 2 mg BID mycophenolate 500 mg q12hr 06/03 decreased from 1000 mg BID for C. Auris infection prednisone 20 mg (06/10 to 06/13) 15 mg (06/14 to 06/20) 10 mg (06/21 to 06/27) 5 mg (06/28 and on) Remain on 5 mg daily for PSC Has patient missed any doses of medication in the last 4 weeks? No Has patient taken meds more than 2 hours before or after the prescribed dosing time in the last 4 weeks? No Has the patient reported cannabis use? No Recent immunosuppression drug levels Lab Results Component Value Date/Time Tacrolimus, Trough 7.1 06/10/2024 0546 Tacrolimus, Trough 8.8 06/09/2024 0839 Tacrolimus, Trough 8.6 06/09/2024 0601 Based on the pharmacist's assessment, the most recent immunosuppression levels are therapeutic. When did you take your last dose of tacrolimus: This morning. Confirmed patient took after labs. Recommend: Continue to monitor. Infection Prophylaxis, Monitoring, & Treatment Misc Infections: - ESBL E.coli and C.auris from donor cultures: on jorge and ertapenem until 06/17 Current Anti-Infective Medication(s) Anti-Infective Agent Sig Planned Stop Date & Comments Nystatin 100,000 units four times daily End date: 06/25/24 TMP-SMZ (Bactrim) 800 mg - 160 mg (DS) once daily Valganciclovir CMV Risk: +/- 450 mg twice daily End date: 11/25/24 Entecavir 0.5 mg daily Recipients of organs from anti-HBc positive donors should undergo monitoring with liver enzymes, HBsAg, and HBV DNA at least every 3 months for at least 12 months post-transplant No results found for: CMVPCR Blood Glucose Not diabetic Lab Results Component Value Date GLUCOSE 93 06/10/2024 GLUCOSE 126 06/09/2024 GLUCOSE 82 06/09/2024 Lab Results Component Value Date HGBA1C 5.2 05/25/2024 HGBA1C 5.2 03/15/2024 BG is within normal limits based on routine labs. Recommend: Continue to monitor. Cardiovascular Risk Blood Pressure Assessment Most recent clinic BP assessments: BP Readings from Last 3 Encounters: 06/13/24 125/77 06/10/24 104/55 05/13/24 129/73 Pulse Readings from Last 3 Encounters: 06/13/24 87 06/10/24 82 05/13/24 68 BP at home has been within normal limits based on home log review. BP ranges 106/70 to 141/92 mmHg Recommend: Continue to monitor. Medication Changes made during clinic visit in consultation with provider: Start calcium-vitamin D 600 mg/200 units daily for low calcium Name: Deshawn Downey RPH Phone: [phone] Date/Time: 06/13/2024 7:38 AM * Dalia Thomas MD - 06/13/2024 1:15 PM EDT Images from the original note were not included. Post-Tx Evaluation Liver 06/13/2024 Jc Jeimy VallesEmelyn [id number] Chief Complaint: No chief complaint on file. HPI: I saw Jcus Jeimy Dunaway in our post transplant office for a 3wk post liver transplant visit. 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 Past Medical History: Diagnosis Date Cirrhosis of liver not due to alcohol 03/15/2024 Colon cancer 10/2020 Primary sclerosing cholangitis Ulcerative colitis diagnosed in the 80s- no surgery Past Surgical History: Procedure Laterality Date LAPAROTOMY EXPLORATORY N/A 06/03/2024 Laterality: N/A; Surgeon: Dalia Thomas MD; Location: [facility] MAIN OR LIVER TRANSPLANT, ORTHOTOPIC N/A 05/25/2024 Laterality: N/A; Surgeon: Dalia Thomas MD; Location: [facility] MA[facility] EXAM UNDER ANESTHESIA ANORECTAL N/A 02/28/2022 Laterality: N/A; Surgeon: Miroslava Joiner MD; Location: [facility] PERIOP ENDOSCOPY SMALL INTESTINE POUCH DIAGNOSTIC N/A 02/28/2022 Laterality: N/A; Surgeon: Miroslava Joiner MD; Location: [facility] PERIOP LOOP ILEOSTOMY CLOSURE N/A 06/04/2021 Laterality: N/A; Surgeon: Miroslava Joiner MD; Location: [facility] MAIN OR ENDOSCOPY SMALL INTESTINE POUCH DIAGNOSTIC N/A 04/22/2021 Laterality: N/A; Surgeon: Miroslava Joiner MD; Location: [facility] ENDOSCOPY COLOPROCTECTOMY TOTAL W/ LOOP ILEOSTOMY OR CREATION ILEAL RESERVOIR LAPAROSCOPIC N/A 02/12/2021 Laterality: N/A; Surgeon: Miroslava Joiner MD; Location: [facility] MAIN OR SIGMOIDOSCOPY DIAGNOSTIC N/A 02/04/2021 Laterality: N/A; Surgeon: Miroslava Joiner MD; Location: [facility] ENDOSCOPY HIP REPLACEMENT Left 2005 COLONOSCOPY DIAGNOSTIC Nov 20202001 Social History Social History Socioeconomic History Marital status: Spouse name: Not on file Number of children: Not on file Years of education: Not on file Highest education level: Not on file Occupational History Not on file Tobacco Use Smoking status: Never Smokeless tobacco: Never Vaping Use Vaping status: Never Used Substance and Sexual Activity Alcohol use: Not Currently Drug use: Not Currently Sexual activity: Not on file Other Topics Concern Not on file Social History Narrative Not on file Social Drivers of Health Financial Resource Strain: Low Risk (05/26/2024) Overall Financial Resource Strain (CARDIA) Difficulty of Paying Living Expenses: Not hard at all Food Insecurity: No Food Insecurity (05/26/2024) NCSS - Food Insecurity Worried About Running Out of Food in the Last Year: No Ran Out of Food in the Last Year: No Transportation Needs: No Transportation Needs (05/26/2024) NCSS - Transportation Lack of Transportation: No Physical Activity: Not on file Stress: Not on file Social Connections: Not on file Personal Safety: Not At Risk (05/26/2024) NCSS - Interpersonal Safety Feels Physically and Emotionally Safe: Yes Physically Hurt by Someone: No Humiliated or Emotionally Abused by Someone: No Housing Stability: Not At Risk (05/26/2024) NCSS - Housing/Utilities Has Housing: Yes Worried About Losing Housing: No Unable to Get Utilities: No No family history on file. Medications: Current Outpatient Medications Medication Sig Dispense Refill alteplase 2 MG Recon Soln 2 mg by Intracatheter route once as needed for Catheter Clearance (For anoccluded line) for up to 1 dose. 1 Each 0 aspirin 81 MG Chew Tab chewable tablet Chew 1 tablet daily. 30 tablet 2 Entecavir 0.5 MG tablet Take 1 tablet by mouth daily. 30 tablet 11 Ertapenem injection 1 g per dose, IV infusion every 24 hours. *diluent and final concentration at discretion of receiving pharmacy* 7 Each 0 hydrocortisone (Cortifoam) 10 % Foam Insert 1 applicator rectally every 12 hours as needed (inflammation). Micafungin injection 100 mg per dose, IV infusion every 24 hours. *diluent and final concentration at discretion of receiving pharmacy* 7 Each 0 Mycophenolate mofetil (CELLCEPT) 250 MG capsule Take 2 capsules by mouth every 12 hours. 120 capsule 11 Nystatin 709962 UNIT/ML oral suspension Swish and swallow 1 mL 4 times daily. 120 mL 0 oxyCODONE 5 MG tablet Take 1 tablet by mouth every 6 hours as needed for up to 7 days. 28 tablet 0 Pantoprazole [address] tablet DR Take 1 tablet by mouth daily. 30 tablet 0 predniSONE 5 MG tablet Take 4 tablets by NG tube route daily for 4 days, THEN 3 tablets daily for 7days, THEN 2 tablets daily for 7 days, THEN 1 tablet daily for 7 days. 70 tablet 2 Sulfamethoxazole-trimethoprim 800-160 MG per tablet Take 1 tablet by mouth every 24 hours. 30 tablet 11 Tacrolimus (PROGRAF) 1 MG capsule Take 3 capsules by mouth daily AND 2 capsules at bedtime as directed 150 capsule 11 valGANciclovir 450 MG tablet Take 1 tablet by mouth 2 times daily. 60 tablet 2 No current facility-administered medications for this visit. Allergies: Patient has no known allergies. Review of Systems: PREP SHEET FOR LIVER SURGERY & TRANSPLANT HEPATOLOGY CLINIC Patient Name: Jc Dunaway ([id number]) Pump Installation And Servicer: Shanell Helms Transplant Field Aide: Babs Marley IMMUNOSUPPRESSION & LAB INFORMATION On Prednisone? yes on a taper Current Immunosuppressive Medication(s) Immunosuppressive Agents Mycophenolate mofetil (CELLCEPT) 250 MG capsule Take 2 capsules by mouth every 12 hours. Tacrolimus (PROGRAF) 1 MG capsule Take 3 capsules by mouth daily AND 2 capsules at bedtime as directed Current lab frequency ordered: Twice a week Labs needed in clinic today? no (if a K/L please review Nephrology protocol for 1st year lab schedule) New standing lab order needed? no Preferred lab: [facility] - [address] - [place] [address] [facility] [address] COORDINATOR NOTES FOR APPOINTMENT: - First outpatient appointment - 05/25/2024: DDLT with janay-en-y choledochojejunostomy - 06/03/2024: ex lap, small bowel pelvic adhesion and partial dehiscence of CDJ; revision of choledochojejunostomy - Next appointment: needs next surgery appointment scheduled. - Transition to Hepatology: 08/08/2024 TRANSPLANT HEPATOLOGY 5, [facility] INFORMATION ON TRANSPLANTED ORGAN COMMENTS Type of Transplant: Liver Date of Transplant: 05/25/2024 Time elapsed since transplant: 17 day(s) Primary Disease: Primary Sclerosing Cholangitis: Ulcerative Colitis Donor Type: Donation after Circulatory Induction Therapy Used: Steroid Taper Risk Criteria Present: yes [place] Protocol Labs First set due AFTER: 06/22/2024 and BEFORE: 07/20/2024 Date 1st set of protocol labs completed: Second set due AFTER 04/25/2025 and BEFORE: 06/24/2025 Date 2nd set of protocol labs completed: Any Donor Derived Concerns? YES Donor colonized with naeem auris and liver perfusate cx positive naeem auris. Blood cultures 05/30 no growth. ID consulted and plan was to extend protocol micafungin to 2 week course. DIALYSIS CVC / OTHER LINES OR DRAINS PRESENT AT DISCHARGE Type: PICC Location: Right arm peritoneal culture positive for ESBL e. Coli continue ertapenem and micafungin x 14 days, EOT 06/19/2024 Date removed: CMV & EBV SEROLOGIES AND FOLLOW UP COMMENTS CMV IgG Donor / Recipient: Donor: Positive Recipient: Lab Results Component Value Date CMVIGG Negative 05/25/2024 Lab monitoring at this time: no On an anti-viral? yes Dose: Valcyte 450mg BID Date to discontinue: 08/25/2024 EBV IgG Donor / Recipient Donor: Positive Recipient: Lab Results Component Value Date EBVVCAIGG Positive (A) 05/25/2024 Lab monitoring required: no FOLLOW UP FOR HCV AND HBV DONORS COMMENTS Hepatitis C+/MYLA- donor? no Lab monitoring required: no Hepatitis C+/MYLA+ donor? no Patient w/history of HBV or Donor HBV core +? yes Anti-viral prescribed: Entecavir Current dose: 0.5mg Daily HBV DNA & sAg due Q6 months Most recent results: DUE: October 2024 INTERMEDIATE IMAGING & PROCEDURE FOLLOW UP COMMENTS History of HCC: PATH in process at time of appointment If yes -- [place] score: Frequency imaging is due: Abdominal MRI or CT & non-contrast chest CT Last imaging done: Next imaging due: Scheduled? Biliary Stent or drain: no Date of last procedure: Next procedure due: Physical Exam Vital Signs: BP 125/77 (BP Location: Left arm, BP Position: Sitting) Pulse 87 Temp 97.7 F (36.5C) (Temporal) Wt 42.7 kg (94 lb 1.6 oz) BMI 15.20 kg/m Smoking Status Never Body mass index is 15.2 kg/m . General: Well-developed, well-nourished. No acute distress HEENT: Atraumatic, normocephalic, extra ocular muscles intact. No scleral icterus. Oropharynx is clear without mucosal lesions (ulcers), No scalp or ear lesions. Neck: without masses Heart: regular rate and rhythm Lungs: Clear Abdomen: Soft, non-tender, non-distended, positive bowel sounds. No pain Extremities: Upper and Lower extremities non-tender, no peripheral edema Skin: no lesions Lymph: no adenopathy Neuro: Alert and oriented to person, place and time; Motor and sensory grossly intact, Ambulation normal Laboratory Data: WBC Count Date Value Ref Range Status 06/10/2024 9.04 3.73 - 10.10 K/uL Final 06/09/2024 8.37 3.73 - 10.10 K/uL Final 06/09/2024 8.26 3.73 - 10.10 K/uL Final Hemoglobin Date Value Ref Range Status 06/10/2024 10.0 (L) 13.4 - 16.8 g/dL Final 06/09/2024 10.7 (L) 13.4 - 16.8 g/dL Final 06/09/2024 10.8 (L) 13.4 - 16.8 g/dL Final Hematocrit Date Value Ref Range Status 06/10/2024 30.8 (L) 39.6 - 48.8 % Final 06/09/2024 32.9 (L) 39.6 - 48.8 % Final 06/09/2024 33.0 (L) 39.6 - 48.8 % Final Platelet Count Date Value Ref Range Status 06/10/2024 205 146 - 337 K/uL Final 06/09/2024 147 146 - 337 K/uL Final 06/09/2024 135 (L) 146 - 337 K/uL Final Sodium Date Value Ref Range Status 06/10/2024 130 (L) 135 - 145 mmol/L Final 06/09/2024 131 (L) 135 - 145 mmol/L Final 06/09/2024 131 (L) 135 - 145 mmol/L Final Chloride Date Value Ref Range Status 06/10/2024 100 98 - 108 mmol/L Final 06/09/2024 101 98 - 108 mmol/L Final 06/09/2024 101 98 - 108 mmol/L Final BUN Date Value Ref Range Status 06/10/2024 18 7 - 25 mg/dL Final 06/09/2024 20 7 - 25 mg/dL Final 06/09/2024 22 7 - 25 mg/dL Final Potassium Date Value Ref Range Status 06/10/2024 4.8 3.5 - 5.0 mmol/L Final 06/09/2024 4.5 3.5 - 5.0 mmol/L Final 06/09/2024 5.0 3.5 - 5.0 mmol/L Final HCO3 Date Value Ref Range Status 06/04/2024 19 (L) 22 - 28 mmol/L Final 06/03/2024 18 (L) 22 - 28 mmol/L Final 06/03/2024 17 (L) 22 - 28 mmol/L Final Creatinine Date Value Ref Range Status 06/10/2024 0.71 0.70 - 1.30 mg/dL Final 06/09/2024 0.77 0.70 - 1.30 mg/dL Final 06/09/2024 0.80 0.70 - 1.30 mg/dL Final Glucose Date Value Ref Range Status 06/10/2024 93 Nonfastin-179 mg/dL; Fastin-99 mg/dL Final 06/09/2024 126 Nonfastin-179 mg/dL; Fastin-99 mg/dL Final 06/09/2024 82 Nonfastin-179 mg/dL; Fastin-99 mg/dL Final PT Date Value Ref Range Status 06/10/2024 13.7 11.9 - 14.2 sec Final 06/09/2024 13.9 11.9 - 14.2 sec Final 06/08/2024 14.6 (H) 11.9 - 14.2 sec Final PTT Date Value Ref Range Status 06/10/2024 29.9 24.0 - 34.3 sec Final 06/09/2024 29.6 24.0 - 34.3 sec Final 06/08/2024 29.3 24.0 - 34.3 sec Final Total Protein Date Value Ref Range Status 06/10/2024 5.0 (L) 6.4 - 8.3 g/dL Final 06/09/2024 5.0 (L) 6.4 - 8.3 g/dL Final 06/09/2024 5.0 (L) 6.4 - 8.3 g/dL Final Albumin Date Value Ref Range Status 06/10/2024 3.0 (L) 3.5 - 5.0 g/dL Final 06/09/2024 3.0 (L) 3.5 - 5.0 g/dL Final 06/09/2024 3.0 (L) 3.5 - 5.0 g/dL Final AST Date Value Ref Range Status 06/10/2024 16 10 - 39 U/L Final 06/09/2024 13 10 - 39 U/L Final 06/09/2024 18 10 - 39 U/L Final ALT Date Value Ref Range Status 06/10/2024 21 10 - 52 U/L Final 06/09/2024 22 10 - 52 U/L Final 06/09/2024 22 10 - 52 U/L Final Bilirubin Total Date Value Ref Range Status 06/10/2024 1.1 <1.5 mg/dL Final Calcium Date Value Ref Range Status 06/10/2024 7.8 (L) 8.6 - 10.5 mg/dL Final 06/09/2024 8.1 (L) 8.6 - 10.5 mg/dL Final 06/08/2024 8.0 (L) 8.6 - 10.5 mg/dL Final Phosphorous Date Value Ref Range Status 06/10/2024 1.7 (L) 2.2 - 4.6 mg/dL Final 06/09/2024 1.9 (L) 2.2 - 4.6 mg/dL Final 06/09/2024 1.4 (L) 2.2 - 4.6 mg/dL Final Magnesium Date Value Ref Range Status 06/10/2024 1.9 1.6 - 2.6 mg/dL Final 06/09/2024 2.5 1.6 - 2.6 mg/dL Final 06/09/2024 1.3 (L) 1.6 - 2.6 mg/dL Final ,INR/Prothrombin Time Lab Results Component Value Date INR 1.1 06/10/2024 Assessment Jc Dunaway is a 58 y.o. male who presents to the [facility] posttransplant clinic for postoperative and immunosuppression evaluation. his transplant liver organ function is good. Immunosuppression medications are appropriate. Jc is currently taking the following immunosuppression medication(s): Current Immunosuppressive Medication(s) Immunosuppressive Agents Mycophenolate mofetil (CELLCEPT) 250 MG capsule Take 2 capsules by mouth every 12 hours. Tacrolimus (PROGRAF) 1 MG capsule Take 3 capsules by mouth daily AND 2 capsules at bedtime as directed Plan: Routine blood draws will be 3d. We will see the patient in the posttransplant clinic in 1wk. Doing well, cont to encourage nutriiton and supplements I have reviewed his extensive medical, surgical, and had a detailed discussion with the patient. All his questions were answered. documented in this encounterU [facility] Instructions* Patient Instructions* Jess Anderson RN - 06/13/2024 1:15 PM EDT Start calcium supplement 600 mg daily, can diamond picker over the counter. Follow up with Dr. Thomas in 1 week. documented in this [facility]OS[facility]04-[facility] Telephone encounter Note* Telephone Encounter - Taylor Downey - 06/10/2024 12:32 PM EDT Medication Access Team coordinated the following [facility]: Solid Organ Transplant Prior Authorization Per the patient's insurance provider, [facility] [employer], the prior authorization for Entecavir0.5mg #30/30 (on-label) was approved. Authorization number: [id number] Authorization start date: 05/10/24 Authorization end date: 06/10/25 $3/mo co-pay Non-Oncology Specialty Prescriptions: 1, 15-20 min Taylor Downey [phone] [facility] Miscellaneous Notes* Telephone Encounter - Taylor Downey - 06/10/2024 12:32 PM EDT Medication Access Team coordinated the [facility]: Solid Organ Transplant Prior Authorization Per the patient's insurance provider, [facility] [employer] [facility], the prior authorization for Entecavir0.5mg #30/30 (on-label) was approved. Authorization number: [id number] Authorization start date: 05/10/24 Authorization end date: 06/10/25 $3/mo co-pay Non-Oncology Specialty Prescriptions: 1, 15-20 min Taylor Downey [phone] * Telephone Encounter - Taylor Downey - 06/10/2024 11:27 AM EDT Prior authorization for Entecavir submitted to [facility] marked urgent. 24-72 hrs for urgent review. Update sent to team. documented in this encounterOSUniversity [facility]04-11-2025 Telephone encounter Note* Telephone Encounter - Taylor Downey - 06/10/2024 11:27 AM EDT Prior authorization for Entecavir submitted to [facility] marked urgent. 24-72 hrs for urgent review. Update sent to team. [facility] History and physical note* Jess Gamez MD - 05/13/2024 1:30 PM EDT ENDOSCOPIC PREPROCEDURE HISTORY AND PHYSICAL HISTORY OF PRESENT ILLNESS: Jc Dunaway is a 58 y.o. male seen in the pre-procedure area at [facility]. The indication for endoscopic evaluation includes: Ulcerative pancolitis with complication Rectal bleeding History of IPAA INR 1.6, 253. PAST MEDICAL HISTORY: Past Medical History: Diagnosis Date Cirrhosis of liver not due to alcohol 03/15/2024 Colon cancer 10/2020 Primary sclerosing cholangitis Ulcerative colitis diagnosed in the 80s- no [...] Miroslava Joiner MD; Location: [facility] MA[facility]OSCOPY SMALL INTESTINE POUCH DIAGNOSTIC N/A 04/22/2021 Laterality: N/A; Surgeon: Miroslava Joiner MD; Location: [facility] COLOPROCTECTOMY TOTAL W/ LOOP ILEOSTOMY OR CREATION ILEAL RESERVOIR LAPAROSCOPIC N/A 02/12/2021 Laterality: N/A; Surgeon: Miroslava Joiner MD; Location: [facility] MAIN OR SIGMOIDOSCOPY DIAGNOSTIC N/A 02/04/2021 Laterality: N/A; Surgeon: Miroslava Joiner MD; Location: [facility] HIP REPLACEMENT Left 2005 COLONOSCOPY DIAGNOSTIC Nov 20202001 MEDICATIONS: Current Outpatient Medications Medication Instructions Cholestyramine light 4 g, DAILY Diphenoxylate-atropine 2.5-0.025 MG tablet EC/DR 1 tablet, 4 TIMES DAILY NEEDED ursodiol (ACTIGALL) 250 mg, 2 TIMES DAILY Current Outpatient Medications: Cholestyramine light 4 g Pack packet, Take 1 packet by mouth daily., Disp: , Rfl: Diphenoxylate-atropine 2.5-0.025 MG tablet EC/DR, Take 1 tablet by mouth 4 times daily as needed for Diarrhea., Disp: , Rfl: ursodiol 250 MG tablet, Take 1 tablet by mouth 2 times daily., Disp: , Rfl: Current Facility-Administered Medications: benzocaine 20 % HURRICAINE 1 Application, 1 Application, Mouth/Throat, As directed PRN, Jess Gamez MD fentaNYL (SUBLIMAZE) injection 100 mcg, 100 mcg, Intravenous, As directed PRN, Jess Gamez MD Flumazenil (ROMAZICON) injection 0.5 mg, 0.5 mg, Intravenous, As directed PRN, Jess Gamez MD Lactated ringers IV solution, , Intravenous, Continuous, Jess Gamez MD midazolam (VERSED) injection 10 mg, 10 mg, Intravenous, As directed PRN, Jess Gamez MD Naloxone (NARCAN) injection 0.4 mg, 0.4 mg, Intravenous, As directed PRN, Jess Gamez MD simethicone in sterile water 40 mg/1000 mL irrigation 1 Application, 1 Application, Irrigation, As directed PRN, Jess Gamez MD simethicone undiluted 40 mg/0.6 mL irrigation 1 Application, 1 Application, Irrigation, As directedPRN, Jess Gamez MD Sodium chloride 0.9% IV solution, , Intravenous, Continuous, Jess Gamez MD ALLERGIES: No Known Allergies FOCUSED REVIEW OF SYSTEMS: Negative except for diarrhea VITAL SIGNS: Vitals: 05/13/24 1302 BP: 119/72 Pulse: 66 Resp: 20 SpO2: 100% Height: 1.676 m (5' 6) PREPROCEDURE PHYSICAL EXAM: AIRWAY: normal, Mallampati: Class II (complete visualization of the uvula) HEART: Regular and No murmur PULMONARY: Lungs clear to auscultation bilaterally ABDOMEN: Soft, nontender, nondistended ASSESSMENT: Jc Dunaway is a 58 y.o. male is ready for the planned procedure. ASA Class: ASA 2 - Patient with mild systemic disease with no functional limitations PLAN: Will plan to proceed with FLEXIBLE SIGMOIDOSCOPY using Moderate Sedation. Jess Gamez MD [facility] Work Phone: [phone]) 957-262803-14-2025 History and physical note* Jess Gamez MD - 05/13/2024 1:30 PM EDT ENDOSCOPIC PREPROCEDURE HISTORY AND PHYSICAL HISTORY OF PRESENT ILLNESS: Jc Dunaway is a 58 y.o. male seen in the pre-procedure area at [facility]. The indication for endoscopic evaluation includes: Ulcerative pancolitis with complication Rectal bleeding History of IPAA INR 1.6, 253. PAST MEDICAL HISTORY: Past Medical History: Diagnosis Date Cirrhosis of liver not due to alcohol 03/15/2024 Colon cancer 10/2020 Primary sclerosing cholangitis Ulcerative colitis diagnosed in the 80s- no [...] Miroslava Joiner MD; Location: [facility] SMALL INTESTINE POUCH DIAGNOSTIC N/A 04/22/2021 Laterality: N/A; Surgeon: Miroslava Joiner MD; Location: [facility] COLOPROCTECTOMY TOTAL W/ LOOP ILEOSTOMY OR CREATION ILEAL RESERVOIR LAPAROSCOPIC N/A 02/12/2021 Laterality: N/A; Surgeon: Miroslava Joiner MD; Location: [facility] MAIN OR SIGMOIDOSCOPY DIAGNOSTIC N/A 02/04/2021 Laterality: N/A; Surgeon: Miroslava Joiner MD; Location: [facility] HIP REPLACEMENT Left 2005 COLONOSCOPY DIAGNOSTIC Nov 20202001 MEDICATIONS: Current Outpatient Medications Medication Instructions Cholestyramine light 4 g, DAILY Diphenoxylate-atropine 2.5-0.025 MG tablet EC/DR 1 tablet, 4 TIMES DAILY NEEDED ursodiol (ACTIGALL) 250 mg, 2 TIMES DAILY Current Outpatient Medications: Cholestyramine light 4 g Pack packet, Take 1 packet by mouth daily., Disp: , Rfl: Diphenoxylate-atropine 2.5-0.025 MG tablet EC/DR, Take 1 tablet by mouth 4 times daily as needed for Diarrhea., Disp: , Rfl: ursodiol 250 MG tablet, Take 1 tablet by mouth 2 times daily., Disp: , Rfl: Current Facility-Administered Medications: benzocaine 20 % HURRICAINE 1 Application, 1 Application, Mouth/Throat, As directed PRN, Jess Gamez MD fentaNYL (SUBLIMAZE) injection 100 mcg, 100 mcg, Intravenous, As directed PRN, Jess Gamez MD Flumazenil (ROMAZICON) injection 0.5 mg, 0.5 mg, Intravenous, As directed PRN, Jess Gamez MD Lactated ringers IV solution, , Intravenous, Continuous, Jess Gamez MD midazolam (VERSED) injection 10 mg, 10 mg, Intravenous, As directed PRN, Jess Gamez MD Naloxone (NARCAN) injection 0.4 mg, 0.4 mg, Intravenous, As directed PRN, Jess Gamez MD simethicone in sterile water 40 mg/1000 mL irrigation 1 Application, 1 Application, Irrigation, As directed PRN, Jess Gamez MD simethicone undiluted 40 mg/0.6 mL irrigation 1 Application, 1 Application, Irrigation, As directedPRN, Jess Gamez MD Sodium chloride 0.9% IV solution, , Intravenous, Continuous, Jess Gamez MD ALLERGIES: No Known Allergies FOCUSED REVIEW OF SYSTEMS: Negative except for diarrhea VITAL SIGNS: Vitals: 05/13/24 1302 BP: 119/72 Pulse: 66 Resp: 20 SpO2: 100% Height: 1.676 m (5' 6) PREPROCEDURE PHYSICAL EXAM: AIRWAY: normal, Mallampati: Class II (complete visualization of the uvula) HEART: Regular and No murmur PULMONARY: Lungs clear to auscultation bilaterally ABDOMEN: Soft, nontender, nondistended ASSESSMENT: Jc Dunaway is a 58 y.o. male is ready for the planned procedure. ASA Class: ASA 2 - Patient with mild systemic disease with no functional limitations PLAN: Will plan to proceed with FLEXIBLE SIGMOIDOSCOPY using Moderate Sedation. 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 Pt verbalizes understanding. IV dc'd with no difficulty and catheter tip intact. Telemetry dc'd. VS stable at time of discharge. Patient being discharged to home by ambulatory with daughter. No patient belongings left at bedside. Post procedure recovery without events. Right wrist site without bleeding or hematoma, palpable radial pulses. Ambulates prior to DC without difficulty. [facility]02-13-[facility] Miscellaneous Notes* Nursing Notes - Juana Luther RN - 04/14/2024 4:25 PM EST Discharge instructions and printed AVS reviewed with patient by FAIZAN Arias, all questions answered. Pt verbalizes understanding. IV dc'd with no difficulty and catheter tip intact. Telemetry dc'd. VS stable at time of discharge. Patient being discharged to home by ambulatory with daughter. No patient belongings left at bedside. Post procedure recovery without events. Right wrist site without bleeding or hematoma, palpable radial pulses. Ambulates prior to DC without difficulty. * Brief Op Note - CHAN Soto - 04/14/2024 1:09 PM EST Preliminary Report - Brief Cardiac Catheterization Procedure Note Jc Dunaway ([id number]) Pre Procedural Diagnosis PSC (primary sclerosing cholangitis) [K83.01] Ulcerative colitis with complication, unspecified location [K51.919] Hepatic cirrhosis, unspecified hepatic cirrhosis type, unspecified whether ascites present [K74.60] Pre-transplant evaluation for liver transplant [Z01.818] Abnormal stress test [R94.39] Post Procedural Diagnosis Minimal CAD Procedure Performed Left heart catheterization and Coronary angiogram Access Site/Hemostasis Right radial, artery, TR Compression Band Findings Left Ventricular End Diastolic Pressure: Normal Left Ventricular Ejection Fraction: Not assessed Preliminary Results of Angiography Mild luminal irregularities Percutaneous Coronary Intervention No Intervention Intraprocedure Anticoagulation Heparin Post-procedure Anticoagulation If anticoagulation is indicated per primary team, may restart 4 hours after hemostasis has been achieved Estimated Blood Loss Minimal Complications None Admission Does patient need to be admitted: No Surgeon Surgeons and Role: * Parul Garcia MD - Primary * CHAN Soto - Fellow Procedural Staff Director Loan: Concepción Diggs RN; Kathryn Mc RN Documenter: Meagan Valenzuela RN Full report to follow CHAN Soto April 14, 2024 1:09 PM Cosigned by Parul Garcia MD at 04/14/2024 1:13 PM EST * Nursing Notes - Mason Mcconnell RN - 04/14/2024 11:39 AM EST Pt arrives to room 6 in IPR for Cor/Lv. ECG completed. IV started in L arm. Labs drawn and sent. 0.9 NS IVF initiated @ 10mL/ hr per pump. Pt prep completed. Valuables given to spouse. Clothes secured in room. Questions about procedure answered. Family brought to bedside. Bed in low position, side rail up x2 and call light given to pt. Tele monitor shows SR. * Nursing Notes - Blade Calix RN - 03/29/2024 1:35 PM EST PREPARING FOR YOUR ENGINEERING SYSTEMS ANALYST PROCEDURE Your catheterization is scheduled on APRIL 14, 2024 at: [facility] at the [facility] located at [address] [place] [address]. You are to arrive at [facility] on the 1st floor at 11:00 AM You may use cattle producers parking ($10) or park in the [employer] [facility] just past the [place] ($3). There is a walkway from the 2nd floor of the garage into the [facility]. You are to have nothing to eat after A LIGHT BREAKFAST BEFORE 7:00 AM You may drink CLEAR liquids up to the time you arrive or 2 hrs before the procedure. (water, juice,clear soda, tea, coffee NO CREAMERS). +++++++++++++++++++++++++++++++++++++++++++++++++++++++++++++++++ MEDICATIONS: YOU ARE TO TAKE YOUR MEDICATIONS YOU NORMALLY WOULD. +++++++++++++++++++++++++++++++++++++++++++++++++++++++++++++++++ PLEASE BRING A COMPLETE AND ACCURATE LIST OF ALL THE MEDICATIONS THAT YOU TAKE ON A REGULAR BASIS. BRING AN OVERNIGHT BAG JUST IN CASE YOU HAVE TO SPEND THE NIGHT. JUST ESSENTIALS YOU WOULD NEED FORBED. YOU ARE HAVING A LEFT HEART CATH - Expect to be at the hospital 6 - 8 hrs. If you get a stent, you may have to stay the night. ++++++++++++++++++++++++++++++++++++++++++++++++++++++++++++++++++ IF YOU HAVE SLEEP APNEA AND YOU REQUIRE CPAP, bring it with you. ++++++++++++++++++++++++++++++++++++++++++++++++++++++++++++++++++ If you have a contrast dye or iodine allergy or if you are on Coumadin also called (Warfarin) or any other major blood thinners like Eliquis, Xarelto, Pradaxa and it was NOT addressed during scheduling, please call NOW to notify the lab ([phone]). You may receive sedation during your procedure and will not be permitted to drive yourself home. You will not be allowed to drive for 24-48 hrs. You will need a friend or family member to accompany you home (a taxi or bus is not acceptable). Failure to have a responsible person on discharge will result in cancellation of your procedure. Labs: LABS WILL BE DRAWN ON ARRIVAL. YOU MAY BE TOLD BY ANOTHER DEPARTMENT THAT YOU WILL RECEIVE A REMINDER CALL THE DAY BEFORE YOUR PROCEDURE, BUT YOU WILL NOT RECEIVE A REMINDER CALL. IF YOU HAVE ANY QUESTIONS REGARDING THE PROCEDURE CALL US AT : [phone] THANK YOU, BLADE GLORIA Typist Scheduling The above instructions were given to patient verbally over the phone AND VIA MY CHART / MAIL. CLICK THE LINK BELOW FOR A VIDEO EXPLANATION OF THE CARDIAC CATH PROCEDURE AND OUT PATIENT PROCESS. [email or web address] documented in this encounterOSU [facility] Surgery Postoperative evaluation and management note* Brief Op Note - CHAN Soto - 04/14/2024 1:09 PM EST Preliminary Report - Brief Cardiac Catheterization Procedure Note Jc Dunaway ([id number]) Pre Procedural Diagnosis PSC (primary sclerosing cholangitis) [K83.01] Ulcerative colitis with complication, unspecified location [K51.919] Hepatic cirrhosis, unspecified hepatic cirrhosis type, unspecified whether ascites present [K74.60] Pre-transplant evaluation for liver transplant [Z01.818] Abnormal stress test [R94.39] Post Procedural Diagnosis Minimal CAD Procedure Performed Left heart catheterization and Coronary angiogram Access Site/Hemostasis Right radial, artery, TR Compression Band Findings Left Ventricular End Diastolic Pressure: Normal Left Ventricular Ejection Fraction: Not assessed Preliminary Results of Angiography Mild luminal irregularities Percutaneous Coronary Intervention No Intervention Intraprocedure Anticoagulation Heparin Post-procedure Anticoagulation If anticoagulation is indicated per primary team, may restart 4 hours after hemostasis has been achieved Estimated Blood Loss Minimal Complications None Admission Does patient need to be admitted: No Surgeon Surgeons and Role: * Parul Garcia MD - Primary * CHAN Soto - Fellow Procedural Staff Director Loan: Concepción Diggs RN; Kathryn Mc RN Documenter: Meagan Valenzuela RN Full report to follow CHAN Soto April 14, 2024 1:09 PM Cosigned by Parul Garcia MD at 04/14/2024 1:13 PM EST [facility]02-[facility] History and physical note* CHAN Soto - 04/14/2024 12:32 PM EST PRE-CATH H&P UPDATE Patient seen and examined by me on day of procedure. Agree with H&P as documented by Dr. Shelton on 03/29/2024, there are no significant updates or changes. This cardiac catheterization is being doneto investigate abnormal stress test (ST depressions with pharmacologic stress that resolve during rest, with no imaging evidence of wall motion changes) which was done as a part of the pre-liver transplant eval. He is a 58 y.o. male hx UC/PSC, colon CA s/p resection 2020, ESLD presenting for pre-liver transplant eval. Currently denies any CP, SOB, orthopnea/PND, worsening LE edema, palpitations, s yncope/presyncope. Verbal consent obtained and sedation assessment completed. Will proceed with the left cardiac catheterization with coronary angiography. . Right radial artery Ravindra's test : Normal. Allergies, Laboratory Studies: has no known allergies. Lab Results Component Value Date CREATSERUM 0.68 (L) 04/14/2024 CREATADULT 81.8 03/15/2024 CREATFLUID 0.66 02/15/2021 Lab Results Component Value Date INR 1.5 (H) 04/14/2024 PTT 32.5 03/15/2024 Lab Results Component Value Date WBC 6.20 04/14/2024 HGB 12.4 (L) 04/14/2024 HCT 36.5 (L) 04/14/2024 PLATELET 320 04/14/2024 MCV 95.3 (H) 04/14/2024 Estimated GFR: Estimated Creatinine Clearance: 74 mL/min (A) (by C-G formula based on SCr of 0.68 mg/dL (L)). CHAN Soto Cosigned by Parul Garcia MD at 04/14/2024 12:44 PM EST [facility] Work Phone: 1(304) 542-721302-13-2025 History and physical note* CHAN Soto - 04/14/2024 12:32 PM EST PRE-CATH H&P UPDATE Patient seen and examined by me on day of procedure. Agree with H&P as documented by Dr. Shelton on 03/29/2024, there are no significant updates or changes. This cardiac catheterization is being doneto investigate abnormal stress test (ST depressions with pharmacologic stress that resolve during rest, with no imaging evidence of wall motion changes) which was done as a part of the pre-liver transplant eval. He is a 58 y.o. male hx UC/PSC, colon CA s/p resection 2020, ESLD presenting for pre-liver transplant eval. Currently denies any CP, SOB, orthopnea/PND, worsening LE edema, palpitations, s yncope/presyncope. Verbal consent obtained and sedation assessment completed. Will proceed with the left cardiac catheterization with coronary angiography. . Right radial artery Ravindra's test : Normal. Allergies, Laboratory Studies: has no known allergies. Lab Results Component Value Date CREATSERUM 0.68 (L) 04/14/2024 CREATADULT 81.8 03/15/2024 CREATFLUID 0.66 02/15/2021 Lab Results Component Value Date INR 1.5 (H) 04/14/2024 PTT 32.5 03/15/2024 Lab Results Component Value Date WBC 6.20 04/14/2024 HGB 12.4 (L) 04/14/2024 HCT 36.5 (L) 04/14/2024 PLATELET 320 04/14/2024 MCV 95.3 (H) 04/14/2024 Estimated GFR: Estimated Creatinine Clearance: 74 mL/min (A) (by C-G formula based on SCr of 0.68 mg/dL (L)). CHAN Soto Cosigned by Parul Garcia MD at 04/14/2024 12:44 PM EST * Stewart Del Rio MD - 04/14/2024 11:30 AM EST PRE-CATH H&P UPDATE Patient seen and examined by me on day of procedure. Agree with H&P as documented by Dr. Shelton on 03/29/24, there are no significant updates or changes. Jc Dunaway is a 58 y.o. male with PMHxof UC/PSC, colon CA s/p resection 2020, ESLD . This cardiac catheterization is being done to investigate pre-liver transplant evaluation with a prior abnormal stress ECG in 2020. Verbal consent obtained, written consent will be obtained at the time of the procedure. Sedation assessment completed. Will proceed with the left cardiac catheterization with coronary angiography. Additionally: Patient is not on anticoagulation Patient is not on a P2Y12 Patient has a documented history of bleeding - no Hemoglobin is not below expected norm Creatinine is not above expected norm The patient is not undergoing active cancer treatment Last stress: Stress ECG 01/2021 - Overall, this is an abnormal ECG stress with inferior and anterolateral ST depressions that occurred at peak stress (14 minutes) and resolved <30 seconds into recovery. Patient had excellent exercise capacity for age. - The patient exercised for 16:01 minutes on modified Zafar protocol. Excellent exercise capacity for age. - Patient achieved 86% of maximal predicted heart rate and 11.7 METS. Blood pressure unchanged (100/70) during exercise. Normal heart rate response. - Resting baseline ECG is normal sinus rhythm with T wave flattening and frequent PVCs. At peak stress, there were [address] depressions in the inferior leads and [address] depressions in the anterolateral leads that resolved <30 seconds into recovery. Frequent PACs and PVCs occurred with stress and in recovery. Last Cath: No results found for this or any previous visit from the past 3650 days. Allergies, Laboratory Studies: has no known allergies. Lab Results Component Value Date CREATSERUM 0.69 (L) 03/15/2024 CREATADULT 81.8 03/15/2024 CREATFLUID 0.66 02/15/2021 Lab Results Component Value Date INR 1.5 (H) 03/15/2024 PTT 32.5 03/15/2024 Lab Results Component Value Date WBC 6.12 03/15/2024 HGB 12.6 (L) 03/15/2024 HCT 38.8 (L) 03/15/2024 PLATELET 281 03/15/2024 MCV 97.7 (H) 03/15/2024 Stewart Del Rio MD Cardiovascular Medicine Fellow [facility] Cosigned by Parul Garcia MD at 04/14/2024 12:26 PM EST documented in this encounterOSU [facility] Nurse Note* Nursing Notes - Mason Mcconnell RN - 04/14/2024 11:39 AM EST Pt arrives to room 6 in IPR for Cor/Lv. ECG completed. IV started in L arm. Labs drawn and sent. 0.9 NS IVF initiated @ 10mL/ hr per pump. Pt prep completed. Valuables given to spouse. Clothes secured in room. Questions about procedure answered. Family brought to bedside. Bed in low position, side rail up x2 and call light given to pt. Tele monitor shows SR. [facility]02-13-[facility] History and physical note* Stewart Del Rio MD - 04/14/2024 11:30 AM EST PRE-CATH H&P UPDATE Patient seen and examined by me on day of procedure. Agree with H&P as documented by Dr. Shelton on 03/29/24, there are no significant updates or changes. Jc Dunaway is a 58 y.o. male with PMHxof UC/PSC, colon CA s/p resection 2020, ESLD . This cardiac catheterization is being done to investigate pre-liver transplant evaluation with a prior abnormal stress ECG in 2020. Verbal consent obtained, written consent will be obtained at the time of the procedure. Sedation assessment completed. Will proceed with the left cardiac catheterization with coronary angiography. Additionally: Patient is not on anticoagulation Patient is not on a P2Y12 Patient has a documented history of bleeding - no Hemoglobin is not below expected norm Creatinine is not above expected norm The patient is not undergoing active cancer treatment Last stress: Stress ECG 01/2021 - Overall, this is an abnormal ECG stress with inferior and anterolateral ST depressions that occurred at peak stress (14 minutes) and resolved <30 seconds into recovery. Patient had excellent exercise capacity for age. - The patient exercised for 16:01 minutes on modified Zafar protocol. Excellent exercise capacity for age. - Patient achieved 86% of maximal predicted heart rate and 11.7 METS. Blood pressure unchanged (100/70) during exercise. Normal heart rate response. - Resting baseline ECG is normal sinus rhythm with T wave flattening and frequent PVCs. At peak stress, there were [address] depressions in the inferior leads and [address] depressions in the anterolateral leads that resolved <30 seconds into recovery. Frequent PACs and PVCs occurred with stress and in recovery. Last Cath: No results found for this or any previous visit from the past 3650 days. Allergies, Laboratory Studies: has no known allergies. Lab Results Component Value Date CREATSERUM 0.69 (L) 03/15/2024 CREATADULT 81.8 03/15/2024 CREATFLUID 0.66 02/15/2021 Lab Results Component Value Date INR 1.5 (H) 03/15/2024 PTT 32.5 03/15/2024 Lab Results Component Value Date WBC 6.12 03/15/2024 HGB 12.6 (L) 03/15/2024 HCT 38.8 (L) 03/15/2024 PLATELET 281 03/15/2024 MCV 97.7 (H) 03/15/2024 Stewart Del Rio MD Cardiovascular Medicine Fellow [facility] Cosigned by Parul Garcia MD at 04/14/2024 12:26 PM EST [facility] Work Phone: 1(767) 989-278702-10-2025 Evaluation note* Diagnosis Onset Date Resolution Status Admit Date Acquired dilation of common bile duct acute April 11, 2 025 2:40pm Diarrhea acute April 11, 2024 2:40pm Weight loss acute April 2:40pm Elevated LFTs chronic April 112024 2:40pm Transaminitis chronic April 112024 2:40pm Ulcerative colitis chronic Februa 2024 2:40pm Colon cancer deleted April 2:40pm Hemorrhoids acute May 03 8:44am [facility] Work Phone: 1(172) 545-251901-28-2025 Nurse Note* Nursing Notes - Blade Calix RN - 03/29/2024 1:35 PM EST PREPARING FOR YOUR ENGINEERING SYSTEMS ANALYST PROCEDURE Your catheterization is scheduled on APRIL 14, 2024 at: [facility] at the [facility] located at [address] [place] [address]. You are to arrive at [facility] on the 1st floor at 11:00 AM You may use cattle producers parking ($10) or park in the [employer] [facility] just past the [place] ($3). There is a walkway from the 2nd floor of the garage [facility] You are to have nothing to eat after A LIGHT BREAKFAST BEFORE 7:00 AM You may drink CLEAR liquids up to the time you arrive or 2 hrs before the procedure. (water, juice,clear soda, tea, coffee NO CREAMERS). +++++++++++++++++++++++++++++++++++++++++++++++++++++++++++++++++ MEDICATIONS: YOU ARE TO TAKE YOUR MEDICATIONS YOU NORMALLY WOULD. +++++++++++++++++++++++++++++++++++++++++++++++++++++++++++++++++ PLEASE BRING A COMPLETE AND ACCURATE LIST OF ALL THE MEDICATIONS THAT YOU TAKE ON A REGULAR BASIS. BRING AN OVERNIGHT BAG JUST IN CASE YOU HAVE TO SPEND THE NIGHT. JUST ESSENTIALS YOU WOULD NEED FORBED. YOU ARE HAVING A LEFT HEART CATH - Expect to be at the hospital 6 - 8 hrs. If you get a stent, you may have to stay the night. ++++++++++++++++++++++++++++++++++++++++++++++++++++++++++++++++++ IF YOU HAVE SLEEP APNEA AND YOU REQUIRE CPAP, bring it with you. ++++++++++++++++++++++++++++++++++++++++++++++++++++++++++++++++++ If you have a contrast dye or iodine allergy or if you are on Coumadin also called (Warfarin) or any other major blood thinners like Eliquis, Xarelto, Pradaxa and it was NOT addressed during scheduling, please call NOW to notify the lab ([phone]). You may receive sedation during your procedure and will not be permitted to drive yourself home. You will not be allowed to drive for 24-48 hrs. You will need a friend or family member to accompany you home (a taxi or bus is not acceptable). Failure to have a responsible person on discharge will result in cancellation of your procedure. Labs: LABS WILL BE DRAWN ON ARRIVAL. YOU MAY BE TOLD BY ANOTHER DEPARTMENT THAT YOU WILL RECEIVE A REMINDER CALL THE DAY BEFORE YOUR PROCEDURE, BUT YOU WILL NOT RECEIVE A REMINDER CALL. IF YOU HAVE ANY QUESTIONS REGARDING THE PROCEDURE CALL US AT : [phone] THANK YOU, BLADE GLORIA Typist Scheduling The above instructions were given to patient verbally over the phone AND VIA MY CHART / MAIL. CLICK THE LINK BELOW FOR A VIDEO EXPLANATION OF THE CARDIAC CATH PROCEDURE AND OUT PATIENT PROCESS. [email or web address] [facility]01-28-2025 History of Present illness Narrative* Katia Minda DO Nikita - 03/29/2024 10:30 AM EST HISTORY It was my privilege to see Mr. Jc Dunaway at [facility] [place] on 03/29/2024 for his pre-liver transplant eval and abnormal stress. He is a 58 y.o.male hx UC/PSC, colon CA s/p resection 2020, ESLD presenting for pre-liver transplant eval. Currently denies any CP, SOB, orthopnea/PND, worsening LE edema, palpitations, syncope/presyncope. Normallyable to perform >4 METs without CP/SOB. Had a stress ECG back in 2020 prior to his colon resection which was also abnormal, but was deemed unnecessary for further workup at that time given the urgency for colon resection for CA treatment. Had standard TTEs which were unremarkable, but most recently had DSE which again showed an abnormal stress ECG portion. Denies smoking. ROS Pertinent negatives include: He denies angina, chest pain, SOB, CORRIGAN, orthopnea, palpitations, syncope, near syncope, or LE edema. He also denies fever, chills, n/v, and the remainder of his 12-point review of systems is otherwisenegative. PAST MEDICAL HISTORY Past Medical History: Diagnosis Date Cirrhosis of liver not due to alcohol 03/15/2024 Colon cancer 10/2020 Primary sclerosing cholangitis Ulcerative colitis diagnosed in the 80s- no surgery PAST SOCIAL HISTORY Social History Socioeconomic History Marital status: Spouse name: Not on file Number of children: Not on file Years of education: Not on file Highest education level: Not on file Occupational History Not on file Tobacco Use Smoking status: Never Smokeless tobacco: Never Vaping Use Vaping status: Never Used Substance and Sexual Activity Alcohol use: Not Currently Drug use: Not Currently Sexual activity: Not on file Other Topics Concern Not on file Social History Narrative Not on file Social Determinants of Health Financial Resource Strain: Not on file Food Insecurity: Not on file Transportation Needs: Not on file Physical Activity: Not on file Stress: Not on file Social Connections: Not on file Intimate Partner Violence: Not on file Housing Stability: Not on file MEDICATIONS AND ALLERGIES Current Outpatient Medications Medication Sig Cholestyramine light 4 g Pack packet Take 1 packet by mouth daily. Diphenoxylate-atropine 2.5-0.025 MG tablet EC/DR Take 1 tablet by mouth 4 times daily as needed forDiarrhea. ursodiol 250 MG tablet Take 1 tablet by mouth 2 times daily. No Known Allergies PHYSICAL EXAM BP 100/52 (BP Location: Right arm, BP Position: Sitting) Pulse 73 Ht 1.676 m (5' 6) Wt 47.2 kg (104 lb 1.6 oz) SpO2 97% BMI 16.80 kg/m Smoking Status Never Wt Readings from Last 3 Encounters: 03/29/24 47.2 kg (104 lb 1.6 oz) 03/24/24 46.7 kg (103 lb) 03/24/24 46.7 kg (103 lb) Gen: Alert, Awake, Oriented x 3, in NAD Eyes: PERRLA, EOMI, no icterus ENT: MMM, trachea midline Resp: lungs are clear to auscultation bilaterally, with normal respiratory effort Cardio: RRR, normal S1, S2, no M/R/G. No DANIEL. GI: Soft/Nontender/Non-distended, normoactive BS MS: No joint effusions or erythema: Skin: No jaundice or rash Neuro: calendar control clerk blood bank grossly intact. Strength grossly equal in muscle groups of the bilateral UEs and LEs. Psych: appropriate affect and cognition LABS AND TEST RESULTS No results found for: CHOLESTEROL, TRIG, HDL, LDLCALC Lab Results Component Value Date ALT 77 (H) 03/15/2024 GLUCOSE 85 03/15/2024 HGBA1C 5.2 03/15/2024 Lab Results Component Value Date SODIUM 136 03/15/2024 POTASSIUM 4.2 03/15/2024 CHLORIDE 102 03/15/2024 CO2 26 03/15/2024 BUN 14 03/15/2024 CREATSERUM 0.69 (L) 03/15/2024 GLUCOSE 85 03/15/2024 TTE 03/2024 Overall test is likely positive for ischemia. There are ST depressions with pharmacologic stress that resolve during rest, with no imaging evidence of wall motion changes. Correlate clinically for further ischemic evaluation. Consider CT angiogram if clinically warranted. Graded infusion of Dobutamine to 30 mcg / kg / min, plus 0.5 mg atropine, stopping due to reaching target heart rate. Resting ECG with sinus bradycardia with infrequent PACs and PVCs. Resting echo with normal wall motion, estimated EF 50-55 %. With infusion, the patient developed no chest pain. He developed ST depressions in the inferolateral leads with no RWMA. At peak infusion, the EF augments to 65 %. There is ECG evidence of ischemia with no correlated Echo evidence of ischemia. ECG changes resolved with rest. TTE 03/2024 Left Ventricle: Chamber size is normal. Regional wall motion is normal. Ejection fraction is normal(55 - 60%). Diastolic function is normal. GLS =-20.2% Right Ventricle: Chamber size is normal. Systolic function is normal. Left Atrium: Chamber size is normal. Mitral Valve: Mild leaflet prolapse of the P2 scallop. Trace regurgitation. Trace TR. Estimated RVSP is 16 mmHg Late bubbles seen on bubble study Stress ECG 01/2021 - Overall, this is an abnormal ECG stress with inferior and anterolateral ST depressions that occurred at peak stress (14 minutes) and resolved <30 seconds into recovery. Patient had excellent exercise capacity for age. - The patient exercised for 16:01 minutes on modified Zafar protocol. Excellent exercise capacity for age. - Patient achieved 86% of maximal predicted heart rate and 11.7 METS. Blood pressure unchanged (100/70) during exercise. Normal heart rate response. - Resting baseline ECG is normal sinus rhythm with T wave flattening and frequent PVCs. At peak stress, there were [address] depressions in the inferior leads and [address] depressions in the anterolateral leads that resolved <30 seconds into recovery. Frequent PACs and PVCs occurred with stress and in recovery. ASSESSMENT AND PLAN In summary, Mr. Jc Dunaway is a 58 y.o. male with hx UC/PSC, colon CA s/p resection 2020, ESLD presenting for pre-liver transplant eval. 1. Abnormal stress test - could normal consider CCTA, however given potential false abnormalities and known CAC on CT chest in the setting of pre-liver transplant eval, recommend formal LHC to eval for obstructive CAD. If neg, no further CV workup warranted. 2. Pre-liver transplant CV eval - plan as above given abnormal stress test. MVP mild with trivial regurgitation with no further CV workup needed for this. 3. UC/PSC/ESLD - follow-up with liver transplant team. Could consider liver-safe statin based on LHC findings since known auto-immune disease and suspected CAC on CT. 4. MVP - mild with trivial regurgitation. No further CV workup needed. I appreciate the opportunity to share in the care of this fine individual. I will plan to see him back as needed. Should any cardiovascular questions or concerns arise in the interim, please do not hesitate to contact me. Respectfully yours, Katia Shelton DO, [facility]sa Coordinator of Clinical Internal Medicine documented in this [facility] History of Present illness Narrative* Kamilah Ruiz RCP - 03/24/2024 10:00 AM EST Images from the original note were not included. PULMONARY DIAGNOSTICS AMBULATORY ASSESSMENT FALL ASSESSMENT: HISTORY OF FALLING? NO DATE OF LAST KNOWN FALL: ALTERED MOBILITY AND/OR GAIT? NO ALTERED MENTAL STATUS? FALL PREVENTION AND PROTECTION SAFETY MEASURES: PHYSICIAN AVAILABLE AND NOTIFIED USED ASSISTIVE DEVICES (WHEELCHAIR, ETC) OBTAINED ASSISTANCE FROM CO-WORKER PATIENT ESCORTED OR FAMILY MEMBER/ATTENDANT PRESENT INSTRUCTED PATIENT ON CALLING FOR ASSISTANCE LEFT DOOR OPEN FOR MONITORING OR FAMILY MEMBER/ATTENDANT PRESENT HEART RATE: 59 BLOOD PRESSURE: 101/64 SpO2: 98% Temperature: 98.6 DEFENSE AND VETERANS PAIN RATING AT REST: 0 Provider Notified (if applicable): (Providers name, Date and Time) documented in this encounterRiverview [facility] Institute01-23-2025 History of Present illness Narrative* Loy Montgomery MA - 03/24/2024 9:00 AM EST 12 Lead EKG performed per provider's order, per policy, and given to [facility] for interpretation. Medical store gift wrap associate offered to patient prior to sensitive procedure and patient declined documented in this encounterU [facility] History of Present illness Narrative* Jennifer Martinez RDCS - 03/24/2024 8:00 AM EST Jc Dunaway was offered and declined a Medical Varnish Blender for this exam/procedure/test 03/24/2024. * Jess Carias RN - 03/24/2024 8:00 AM EST Purpose of Bubble contrast study explained to patient. IV placed as a saline lock. Sodium chloride 0.9% agitated flush given at rest and with valsalva. IV removed after Echo images obtained without incident. Patient tolerated IV insertion, agitated saline infusions and the removal of the IV without incident. documented in this encounterOSUniversity [facility]als [facility] Miscellaneous Notes* Result Encounter Note - Babs Marley MD - 03/24/2024 8:00 AM EST Hi Can we e-consult cards for the mild MR from the MV Prolapse. For clearance Thanks C * Result Encounter Note - Babs Marley MD - 03/24/2024 8:00 AM EST Oh yeah , I see it Ok lets send him for an official cards consult Thanks C documented in this encounterOSU [facility] Progress note* Result Encounter Note - Babs Marley MD - 03/24/2024 8:00 AM EST Hi Can we e-consult cards for the mild MR from the MV Prolapse. For clearance Thanks C [facility] Work Phone: 1(304) 997-136301-23-2025 Progress note* Result Encounter Note - Babs Marley MD - 03/24/2024 8:00 AM EST Oh yeah , I see it Ok lets send him for an official cards consult Thanks C [facility]01-14-2025 History of Present illness Narrative* YRN Aguilar - 03/15/2024 10:00 AM EST Transplant Recipient Psychosocial Evaluation Demographics: Patient is a 58 y.o., , , male, who presented for a liver transplant evaluation. Patient was AOx4. Transplant Apparel Rental Clerk role/function was explained and reviewed. The patient was informed that the results of this assessment will be shared with the referring provider and the transplant team. The patient verbalized understanding of this information. The [facility] psychosocial assessment consent form has been explained to patient and has been signed. Patient is completing this evaluation with spouse (Flaca) in the Outpatient setting. Apparel Rental Clerk educated patient on the benefits of completing/filing advanced directives and resources were offered and questions regarding same were answered by this social service director. Patient identifies with NO PREFERENCE nondenominational. Patient confirms being a [place] Citizen. Patient's primary language is Latvian. Patient denies potential donors. Donor cards and resources provided to include discussion regarding living donation, checklist to prepare for transplant and financial assistance available. Education: Patient's highest level of education is high school. He denies a history of developmental delay or learning disabilities. Patient is literate. Patient confirms the ability to read, write, and understand verbal instructions. Patient demonstrates moderate health literacy. Functional Status: Patient denies having a home health provider. Patient uses no equipment as DME. Patient reports using no oxygen. Patient was encouraged to prepare to utilize vitals equipment post-transplant. Patientreports that he is independent/drives, has valid license. He reports availability of his spouse foradditional assistance with driving. He reports requiring reading glasses. Patient reports current or history of no conditions which may impact his cognitive state. Patient denies recent changes to memory, concentration, or attention. 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 Patient is not on dialysis - notapplicable. Patient was diagnosed with organ related disease December 2023. Patient reports learningthat he may need a transplant within the last year. His transplant history includes no referral. Patient completed transplant education through the provided educational video prior to this assessment. Patient and their support demonstrated good understanding of transplant. He identified Waitlist status, Rejection, Benefits/Risks of transplant, Length/course of hospitalization, Post-transplant follow up, Expectation of Labs, Selection process, Rehab/recovery, Immunosuppression therapy (an hour to respond to the offer call, anti rejection, blood tests after wards) related to transplant. Patientand support demonstrated good understanding of patient's current medical regimen and health history. Patient and social work discussed the importance of patient follow up at the transplant center forongoing care and discussed benefits of having access to resources available including medication assistance and financial counseling. Patient and support received transplant education material. Social work encouraged patient to review all medical information and medical questions with transplant nurse coordinator or physician throughout the process. Willingness/Desire for Transplantation: Patient reports that Physician/Specialist suggested transplant to patient. Patient reports that hisreaction after transplant suggestion included tanna shocksharron. He appears motivated towards transplant. Patient reports that he is motivated for transplant because feel better, live longer. Patient denies specific concerns regarding transplant, reports general worry about having a major surgery. Medical Adherence: Patient denies having difficulty following medical recommendations. There is no evidence of patienthaving difficulty following medical recommendations per chart review. He is not applicable for missing/stopping dialysis early or arriving late. Patient organizes his medical appointments with the assistance of Yoly. Patient organizes his medications by counting pills daily (routine, going toget a pill box). Patient is aware of medication regimen. Patient denies past or current difficulties with taking medications. Patient's care is assisted some by others. Patient educated on the importance of demonstrating ongoing adherence and ability to continue follow treatment recommendations. Support/Caregiver: Patient lives with son, with daughter in a house, [place], (cats and a dog in the home)they own. Patient reports that he has 2 adult children. Patient plans on discharging home for post-transplant care. Patient's primary support team will include his spouse,Flaca (54). Patient's support confirms that they will be available to take the necessary time off from their lives and/or employment in order to fulfill the commitment of providing support. She reports access to PTO- she is a collection development librarian in addition to her work on the dairy farm. She denies the presence of any medical and/or mental health issueswhich might interfere with their ability to assist the recipient during the transplant process. Patient's spouse appears motivated in making the commitment to provide help. Additional support includes the patient's daughter- Leroy (23) and son- Cuate (27). Cuate and Leroy both live with their parents and work on the dairy farm. Cuate also works as a fabrication welder. Cuate drives, Leroy does not currently. Both are generally heathy. Patient confirms being comfortable asking for help. Patient denies being a caregiver for someone else. Patient's support appears adequate. There will be no anticipated need to relocate post-transplant. Patient was encouraged to discuss needs with family and friends to ensure that he has appropriatecare post- surgery. Patient educated on the importance of having support person available for emotional and physical care needs. 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 He stated there are only 4 employees, but they paid a portion of his usually income the last time he had major surgery several years ago. He has access to spouse's income, patient's income in regards to financial means pre/post-transplant. Patient confirms being able to meet daily needs. He reports access to a private insurance. Patient denies history service. Social work encouraged patient to identify a post-transplant financial plan and encouraged patient to keep in contact with transplant team ofany financial changes or benefit needs. Patient was given educational packet with additional resources for fund raising, lodging, and benefit information. Mental Health: Patient denies being previously diagnosed with a mental health diagnosis. Patient denies current symptoms and/or daily functioning concerns. Patient denies current or history of outpatient mental health counseling. Patient denies current or history of psychotropic medication use. He denies a history of psychiatric hospitalizations. Patient denies current SI, plan and intent along with HI, plan and intent. Patient denies a history of suicide attempts or self- injurious behaviors. Patient denies ahistory of abuse. Patient confirms feeling safe in his current environment and relationships. Patient reports watching/playing sports, watching movies, reading as ways to cope with the stressors related to transplantation and relax during surgery recovery period. Patient and patient's support were educated about the mental health symptoms that some patients have reported experiencing post-transplant including depression and anxiety. Patient was informed of the availability of mental health resources and access to the Transplant Clinical Health Psychologist. Mental Status Exam: Patient's mood was noted as within normal limits Patient's appearance was noted as appropriately dressed and groomed Patient affect was noted as appropriately groomed with normal affect His behavior was noted as calm, cooperative and appropriate Eye contact was maintained and appropriate Insight was good Memory was noted as intact, no impairments noted Patient's attention was sustained. Patient's judgment was noted to be good Patient's speech was of adequate volume and rate Patient's thought content was noted as logical and coherent Psychomotor functioning was within normal limits Visual/auditory/olfactory hallucinations were not noted. Delusions were not noted as present Alcohol and Substance Use: First Use Last Use Frequency Amount Method Tobacco highschool ; rarely (chew) ; ; Alcohol 3-4 years ago- med side effects ; rarely ; couple beers ; Marijuana Heroin Cocaine Prescription Meds Other Substances Patient denies all other substance use and support person(s) present, outside documentation, and patient's medical records appear to confirm same. Based on evaluation, patient meets criteria for No Alcohol or Substance Use Disorder diagnosis. He was provided with no drug and alcohol resources. Patient was not referred for a substance use disorder assessment and treatment based on evaluation, corroborating information from support, external documentation, and medical record information. Psychosocial impression: Given the above information, patient has a SIPAT score of 11 with 1 point(s) due to tobacco use. The current identified psychosocial risk factors include past nicotine use. [facility] expectation list and [facility] recommendation list. Patient's spouse has signed the support person agreement. Based on patient's presentation, it appears that patient has been forthcoming with evaluation information. Psychosocial evaluation information shared with the multidisciplinary team for continuity of care. Remediation: Given the information obtained and risk factors identified, the following remediation plan was developed and discussed with the patient: none at this time GABBY Aguilar, YRN-S Outpatient Transplant Apparel Rental Clerk [facility] [address] [place] [address] [email or web address] The above assessment was conducted by means of corroborating information from patient's chart review, support person(s) report, multiple evidence based clinical tools and a modified version of the [place] Integrated Psychosocial Assessment for Transplant (SIPAT) and the SIPAT-General TXP Long FormNaveed et al, 2008; Naveed et al, Psychosomatics 2012. documented in this encounterRiverview Health Institute01-14-2025 History of Present illness Narrative* Daiana Allen RN - 03/15/2024 9:30 AM EST Patient Jc Dunaway ([id number]), accompanied by spouse (Flaca), was seen on 03-15-2024 for evaluation for liver transplant. Confirmed with the patient and their support person that they have viewed the online education video. Patient and their support were able to verbalize understanding of the transplant process and requirements. Patient and present support asked appropriate questions and demonstrated understanding of answers. All required transplant consents reviewed and signed. Medical history and current medications were reviewed with the patient. Patient is being evaluated for liver transplant related to diagnosis of PSC c/b Jaundice. Patient endorsed medical/surgical history of Past Medical History: Diagnosis Date Colon cancer 10/2020 Ulcerative colitis diagnosed in the 80s- no surgery Past Surgical History: Procedure Laterality Date EXAM UNDER ANESTHESIA ANORECTAL N/A 02/28/2022 Laterality: N/A; Surgeon: Miroslava Joiner MD; [facility]OSCOPY SMALL INTESTINE POUCH DIAGNOSTIC N/A 02/28/2022 Laterality: N/A; Surgeon: Miroslava Joiner MD; [facility] PERI[facility] LOOP ILEOSTOMY CLOSURE N/A 06/04/2021 Laterality: N/A; Surgeon: Miroslava Joiner MD; [facility] SMALL INTESTINE POUCH DIAGNOSTIC N/A 04/22/2021 Laterality: N/A; Surgeon: Miroslava Joiner MD; [facility] COLOPROCTECTOMY TOTAL W/ LOOP ILEOSTOMY OR CREATION ILEAL RESERVOIR LAPAROSCOPIC N/A 02/12/2021 Laterality: N/A; Surgeon: Miroslava Joiner MD; [facility] SIGMOIDOSCOPY DIAGNOSTIC N/A 02/04/2021 Laterality: N/A; Surgeon: Miroslava Joiner MD; [facility] HIP REPLACEMENT Left 2005 COLONOSCOPY DIAGNOSTIC Nov 20202001 Current symptoms of liver disease include fatigue and occasional abdominal pain. Education provided to patient regarding living donor liver transplant. Transplant surgery also evaluated this patient. Patient s case will be discussed on an ongoing basis at the liver transplant patient progress meeting. Their case will be formally presented to the multidisciplinary team at Liver Patient Selection Committee when the evaluation is complete. Jc Dunaway has no further concerns or questions today and understands that we will be in touch [facility]. Patient has contact information for the transplant clinic and was encouraged to call if there are any further questions. Etiology: PSC c/b jaundice HCC: No ETOH: No HCV: No Previous Abdominal Surgery: Yes Surgeries: Total proctocolectomy with Ileal pouch-anal l anastomosis (2020). Refractory Ascites: No SBP: everett Hydrothorax: No TIPS: No PVT: No RVSP: ECHO not completed yet Previous Malignancy: yes Colon Cancer Diabetes: no HBV Vaccine: No. Why? Doesn't; recall being offered DIAGNOSTIC STUDIES Abdominal MRI: 01/24/2024 FINDINGS: Lung Bases: Normal. Liver: Similar appearance and morphology of an enlarged caudate lobe and lateral segment without definite surface nodularity. No suspicious enhancing lesion. Gallbladder: Possible stone in the gallbladder fundus.. Bile Ducts: There is prominent biliary ductal dilatation was predominantly involving the left hepatic lobe (series 9 image 17). There is narrowing of the biliary duct at the srinivas hepatis (series 9 image 49 as well as more distally within the branching of the left hepatic ducts (series 9 image 25). Multiple other areas of stricturing and narrowing in the distal intrahepatic biliary ducts. Although there are no tendon minute delayed images, there is no obvious enhancing focus in this area. Spleen: Normal. Pancreas: Normal. Adrenals: Normal. Right Kidney: Normal. No hydronephrosis. Left Kidney: Normal. No hydronephrosis. Gastrointestinal: No bowel dilation or wall thickening. Peritoneum/retroperitoneum: No ascites. Lymph nodes: No enlarged or morphologically abnormal lymph nodes. Vasculature: The abdominal aorta is normal in course and caliber. Patent celiac and superior mesenteric arteries. Patent portal, splenic, and superior mesenteric veins. Body Wall: Normal. Bones: Partially visualized right hip arthroplasty. Probable hemangioma in the L2 vertebral body. IMPRESSION: 1. Similar probable cirrhotic morphology of the liver with findings concerning for primary sclerosing cholangitis. There is worsening dilatation of the biliary ducts with more prominent area of stricturing/narrowing involving the srinivas hepatis and left hepatic duct branch point. 2. Although there are no 10 minute delayed postcontrast sequences, there is no enhancing focus in the liver or biliary ductal system. : 02/25/2024 Findings: The temporary office assistant film was normal. The esophagus was successfully intubated under direct vision. The scope was advanced from the mouth to the duodenum. The pharynx, larynx and associated structures, as well as the upper GI tract, were normal. The papilla was slightly inverted. A biliary sphincterotomy had been performed. The sphincterotomy appeared open. A 0.025 inch x 270 cm angled Visiglide wire was passed into the biliary tree. The short-nosed traction sphincterotome was passed over the guidewire and the bile duct was then deeply cannulated. Contrast was injected. I personally interpreted the bile duct images. Ductal flow of contrast was adequate. Image quality was adequate. Contrast extended to the hepatic ducts. The common hepatic duct, hepatic duct bifurcation, left main hepatic duct and right main hepatic duct contained severe stenoses with multifocal strictures in the right and left intrahepatics in a [id number]-[id number]-string pattern. The bile duct orifice was successfully dilated with a 6 mm balloon dilator and the common heptic duct and birfucation was dilated with a 4 mm balloon dilator. We were unable to pass any device through the right and left main hepatic duct strictures including an autotome, a 9-12 mm balloon, and the 4 mm balloon dilator. We also attempted to pass a 5 Fr Sohendra stent retriever device through the left main hepatic duct but that was unsuccessful. Cells for cytology and NGS were obtained by brushing in the common hepatic duct to assess for cholangiocarcinoma. Impression: - Prior biliary sphincterotomy appeared open. The major papilla appeared slightly inverted. The bile duct orifice was dilated with a 6 mm balloon (sphincteroplasty). - Cholangiogram revealed severe biliary strictures involving the common hepatic duct, left main hepatic duct and right main hepatic duct in addition to multifocal strictures in the right and left intrahepatics in [id number]-string pattern. The strictures were secondary to primary sclerosing cholangitis. Unable to identify any intervenable targets including the dilated left intrahepatic duct noted on MRCP performed in 01/2024. - The CHD/hepatic duct bifurcation was dilated to 4 mm. Unable to pass any devices through the severe right and left main hepatic ducts including the autotome, 9-12 mm balloon, a 4 mm balloon, and a 5 Fr Sohendra stent retriever. Hence, we were unable to place any biliary stents. - Cells for cytology and NGS were obtained from the common hepatic duct to rule out cholangiocarcinoma. PATH: Common Hepatic Duct Brushing FINAL DIAGNOSIS: Atypical cell present Note: ThinPrep is moderately cellular and shows a few clusters of atypical cells with large nuclei.However, there is no nuclear membrane irregularity, irregular chromatin distribution, nuclear size variation, or loss of architecture. Pouchoscopy: 02/09/2023 Findings: Patient is status-post TPC/IPAA with a pouch-rectal anastomosis. The hawa-terminal ileum appeared normal. There was a rectal cuff beginning at at 1 cm from the anal verge, characterized by healthy appearing mucosa. The cuff extended 3 cm in length. Biopsies were taken with a cold forceps for histology. Estimated blood loss was minimal. The exam was otherwise without abnormality. Impression: - The examined portion of the ileum was normal. - Rectal cuff with healthy appearing mucosa seen. Biopsied. - The examination was otherwise normal. Pathologic Diagnosis A. Colon, rectal cuff, biopsy: Rectal mucosa with mild features of chronicity Negative for active inflammation Negative for dysplasia or malignancy * Ba Boland MD, PhD - 03/15/2024 9:30 AM EST Pretransplant new visit Date of service: 03/15/2024 -Referring liquid center assembler for today's consult: Babs Marley -Primary Care Provider: Olive Valera CC: Chief Complaint Patient presents with Liver Recipient Evaluation History of Present Illness Jc Dunaway is a 58 y.o. male who presents to the [facility] liver transplant surgery clinic today for evaluation for placement on the waiting list. 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 PMH - and UC, total procotocolectomy with ileoanal anastomosis. Symptoms - mild fatigue, some abd pain. MELD - 16. Had issues with stricture of BD with atypical cells, the stricture couldn't be traversed. Here surgical evaluation for liver transplant. Past Medical History He has a past medical history of Cirrhosis of liver not due to alcohol (03/15/2024), Colon cancer (10/2020), Primary sclerosing cholangitis, and Ulcerative colitis. Past Surgical History He has a past surgical history that includes hip replacement (Left, 2005); colonoscopy diagnostic; sigmoidoscopy diagnostic (N/A, 02/04/2021); coloproctectomy total w/ loop ileostomy or creation ilealreservoir laparoscopic (N/A, 02/12/2021); endoscopy small intestine pouch diagnostic (N/A, 04/22/2021); loop ileostomy closure (N/A, 06/04/2021); exam under anesthesia anorectal (N/A, 02/28/2022); and endoscopy small intestine pouch diagnostic (N/A, 02/28/2022). Family History His family history is not on file. Social History He reports that he has never smoked. He has never used smokeless tobacco. He reports that he does not currently use alcohol. He reports that he does not currently use drugs. Medications Outpatient Medications Prior to Visit: Cholestyramine light 4 g Pack packet, Take 1 packet by mouth daily. diphenhydrAMINE-APAP, sleep, (TYLENOL PM EXTRA STRENGTH PO), Take 1 tablet by mouth at bedtime. ursodiol 250 MG tablet, Take 1 tablet by mouth 2 times daily. Allergies Patient has no known allergies. Review of Systems Constitutional: No fever, no wt loss, no night sweating. HENT: Negative. Cardiovascular: Negative. Pulmonary: No SOB, No hx of cough GI: denies Musculoskeletal: Negative. Psychiatric: Negative. Lymph/Heme: Negative. Urologic: denies Skin: denies Patient denies ascites, LE edema, SOB, hematemesis, melena, BRBPR, confusion, forgetfulness or reversal in sleep wake cycle. Other systems review was negative Physical Exam Vitals: 03/15/24 0930 BP: 112/72 Pulse: 74 Temp: 98.7 degrees F (37.1 degrees C) TempSrc: Temporal Weight: 47 kg (103 lb 11.2 oz) Height: 1.676 m (5' 6) Body mass index is 16.74 kg/m . Constitutional: Breathing easily, in no acute distress. Does not appear cachectic. Head: Normocephalic. Mouth/Throat: Oropharynx is clear and moist. Eyes: No scleral icterus. EOMI, PERRL Neck: Neck supple. Abdominal: Soft. No distension and no ascites.There is no hepatomegaly. No tenderness. No masses, No hernias. Musculoskeletal: No Bilateral LE edema. Lymphadenopathy: No cervical, axillary, or groin adenopathy. Neurological: Alert and oriented to person, place, and time. Grossly Intact. Skin: Does not appear jaundiced. No skin lesions. Laboratory Evaluation WBC Count Date Value Ref Range Status 12/23/2023 6.45 3.73 - 10.10 K/uL Final 06/06/2021 6.72 3.73 - 10.10 K/uL Final 06/05/2021 8.83 3.73 - 10.10 K/uL Final Hemoglobin Date Value Ref Range Status 12/23/2023 12.6 (L) 13.4 - 16.8 g/dL Final 06/06/2021 11.8 (L) 13.4 - 16.8 g/dL Final 06/05/2021 12.1 (L) 13.4 - 16.8 g/dL Final Hematocrit Date Value Ref Range Status 12/23/2023 37.4 (L) 39.6 - 48.8 % Final 06/06/2021 35.4 (L) 39.6 - 48.8 % Final 06/05/2021 36.2 (L) 39.6 - 48.8 % Final Platelet Count Date Value Ref Range Status 12/23/2023 264 146 - 337 K/uL Final 06/06/2021 222 146 - 337 K/uL Final 06/05/2021 260 146 - 337 K/uL Final Sodium Date Value Ref Range Status 12/23/2023 139 135 - 145 mmol/L Final 06/06/2021 140 135 - 145 mmol/L Final 06/05/2021 136 135 - 145 mmol/L Final Chloride Date Value Ref Range Status 12/23/2023 103 98 - 108 mmol/L Final 06/06/2021 107 98 - 108 mmol/L Final 06/05/2021 105 98 - 108 mmol/L Final BUN Date Value Ref Range Status 12/23/2023 13 7 - 25 mg/dL Final 06/06/2021 11 7 - 25 mg/dL Final 06/05/2021 14 7 - 25 mg/dL Final Potassium Date Value Ref Range Status 12/23/2023 4.3 3.5 - 5.0 mmol/L Final 06/06/2021 3.4 (L) 3.5 - 5.0 mmol/L Final 06/05/2021 4.5 3.5 - 5.0 mmol/L Final Creatinine Date Value Ref Range Status 12/23/2023 0.65 (L) 0.70 - 1.30 mg/dL Final 06/06/2021 0.67 (L) 0.70 - 1.30 mg/dL Final 06/05/2021 0.70 0.70 - 1.30 mg/dL Final Glucose Date Value Ref Range Status 12/23/2023 58 (L) 70 - 99 mg/dL Final 06/06/2021 88 70 - 99 mg/dL Final 06/05/2021 136 (H) 70 - 99 mg/dL Final PT Date Value Ref Range Status 12/23/2023 16.6 (H) 11.9 - 14.2 sec Final Total Protein Date Value Ref Range Status 12/23/2023 6.1 (L) 6.4 - 8.3 g/dL Final Albumin Date Value Ref Range Status 12/23/2023 3.6 3.5 - 5.0 g/dL Final AST Date Value Ref Range Status 12/23/2023 124 (H) 10 - 39 U/L Final ALT Date Value Ref Range Status 12/23/2023 77 (H) 10 - 52 U/L Final Bilirubin Total Date Value Ref Range Status 12/23/2023 5.0 (H) <1.5 mg/dL Final Calcium Date Value Ref Range Status 12/23/2023 9.1 8.6 - 10.5 mg/dL Final 06/06/2021 8.6 8.6 - 10.5 mg/dL Final 06/05/2021 8.9 8.6 - 10.5 mg/dL Final Phosphorous Date Value Ref Range Status 06/06/2021 1.7 (L) 2.2 - 4.6 mg/dL Final 06/05/2021 4.5 2.2 - 4.6 mg/dL Final 02/16/2021 3.7 2.2 - 4.6 mg/dL Final Magnesium Date Value Ref Range Status 06/06/2021 1.9 1.6 - 2.6 mg/dL Final 06/05/2021 1.8 1.6 - 2.6 mg/dL Final 02/16/2021 1.7 1.6 - 2.6 mg/dL Final ,INR/Prothrombin Time Lab Results Component Value Date INR 1.3 (H) 12/23/2023 Diagnostic Studies Reviewed by me Assessment and Plan Jc Jeimy Dunaway is a 58 y.o. male who presents to the [facility] liver pretransplant clinic for surgical evaluation for liver transplant waiting list. Etiology: PSC c/b jaundice HCC: No ETOH: No HCV: No Previous Abdominal Surgery: Yes Surgeries: Total proctocolectomy with Ileal pouch-anal l anastomosis (2020). Refractory Ascites: No SBP: everett Hydrothorax: No TIPS: No PVT: No RVSP: ECHO not completed yet Previous Malignancy: yes Colon Cancer Diabetes: no HBV Vaccine: No. Why? Doesn't; recall being offered The above imaging studies have been reviewed by myself. Absolute contraindications: None Relative contraindications: None Major concerns: None, appears to be an appropirate candidate for liver transplantation from a surgical perspective.May need a janay secondary to potential extra-hepatic bilde duct disease ( of note has had colectomyfor UC with ileo-rectal/anal anastomosis) In terms of his liver disease, his MELD Na score is 16 I have reviewed his extensive medical, surgical, and had a detailed discussion with the patient. All his questions were answered. We discussed most of the aspect of liver transplant surgery, risks and benefits. We will discuss the case at the liver PSC meeting. Donor weight: 40-400lbs Functional Status Assessment: 70% 100% - Normal, no complaints, no evidence of disease 90% - Able to carry on normal activity; minor symptoms of disease 80% - Normal activity with effort; some symptoms of disease 70% - Cares for self; unable to carry on normal activity or active work 60% - Requires occasional assistance but is able to care for needs 50% - Requires considerable assistance and frequent medical care 40% - Disabled; requires special care and assistance 30% - Severely disabled; hospitalization is indicated, is not imminent 20% - Very sick, hospitalization necessary; active treatment necessary 10% - Moribund, fatal processes progressing rapidly Unknown documented in this encounterRiver[facility] Institute01-14-2025 Instructions* Patient Instructions* Daiana Allen RN - 03/15/2024 9:30 AM EST You have been seen in the pre-transplant evaluation clinic by Dr. Boland and Daiana Allen. Daiana Allen is your pre-health services coordinator she can be reached at [phone] at any time for questions during the pre-transplant process. Your medical/surgical evaluation is complete pending 1. EKG, Echocardiogram, stress echocardiogram 03-24-2024 2. Chest X-ray-- walk in 2nd floor [facility]. 3. Pulmonary function test 03-24-2024 Please call the liver transplant financial business analyst Gladys, at [phone] if you do not get a call from her within a week of this appointment. Please call Mansoor at [phone] if you need any of your transplant testing rescheduled. Social work may have additional requirements or recommendations that they will discuss with you. If any of the above tests are abnormal additional follow up testing or specialist visits may be required. Once your testing is complete, we will review your case at patient selection committee for possiblelisting on the liver transplant waitlist. We encourage you to consider a living donor transplant. Please reach out to the transplant office with questions regarding living donor liver transplant. Hepatology will continue to provide your medical care for your liver disease. Please call them withsymptom or prescription concerns at [phone]. documented in this encounterOS[facility] Nurse Note* Nursing Notes - Peggy Rico RN - 02/25/2024 11:[address] Farrar that patient was ready for discharge and requested a phone call for the test results. Patient states that they live in [place] and would like to leave as soon as possible. Dr Farrar stated he would come see the patient [place]. [facility]12-26-[facility]24 Miscellaneous Notes* Nursing Notes - Peggy Rico RN - 02/25/2024 11:[address] Farrar that patient was ready for discharge and requested a phone call for the test results. Patient states that they live in [place] and would like to leave as soon as possible. Dr Farrar stated he would come see the patient [place]. * Nursing Notes - Genna Muñoz RN - 02/25/2024 10:29 AM EST Fluoro Time = 41.3/ Report called to PACU plus documented in this encounterOS[facility] Nurse Note* Nursing Notes - Genna Muñoz RN - 02/25/2024 10:29 AM EST Fluoro Time = 41.3/ Report called to PACU plus [facility]12-26-[facility] History and physical note* Glenn Ignacio MD - 02/25/2024 8:30 AM EST ENDOSCOPIC PREPROCEDURE HISTORY AND PHYSICAL HISTORY OF PRESENT ILLNESS: Jc Dunaway is a 58 y.o. male seen in the pre-procedure area at [facility]. The indication for endoscopic evaluation includes: PSC (primary sclerosing cholangitis) PAST MEDICAL HISTORY: Past Medical History: Diagnosis Date Colon cancer 10/2020 Ulcerative colitis diagnosed in the 80s- no surgery SURGICAL HISTORY: Past Surgical History: Procedure Laterality Date EXAM UNDER ANESTHESIA ANORECTAL N/A 02/28/2022 Laterality: N/A; Surgeon: Miroslava Joiner MD; [facility] SMALL INTESTINE POUCH DIAGNOSTIC N/A 02/28/2022 Laterality: N/A; Surgeon: Miroslava Joiner MD; Location: [facility] PERIOP LOOP ILEOSTOMY CLOSURE N/A 06/04/2021 Laterality: N/A; Surgeon: Miroslava Joiner MD; [facility]OS[facility] SMALL INTESTINE POUCH DIAGNOSTIC N/A 04/22/2021 Laterality: N/A; Surgeon: Miroslava Joiner MD; Location: [facility] COLOPROCTECTOMY TOTAL W/ LOOP ILEOSTOMY OR CREATION ILEAL RESERVOIR LAPAROSCOPIC N/A 02/12/2021 Laterality: N/A; Surgeon: Miroslava Joiner MD; Location[facility] OR SIGMOIDOSCOPY DIAGNOSTIC N/A 02/04/2021 Laterality: N/A; Surgeon: Miroslava Joiner MD; Location: [facility] HIP REPLACEMENT Left 2005 COLONOSCOPY DIAGNOSTIC Nov 20202001 MEDICATIONS: Current Outpatient Medications Medication Instructions Cholestyramine light 4 g, Oral, DAILY diphenhydrAMINE-APAP, sleep, (TYLENOL PM EXTRA STRENGTH PO) 1 tablet, Oral, DAILY AT BEDTIME ursodiol (ACTIGALL) 250 mg, Oral, 2 TIMES DAILY Current Outpatient Medications: Cholestyramine light 4 g Pack packet, Take 1 packet by mouth daily., Disp: , Rfl: diphenhydrAMINE-APAP, sleep, (TYLENOL PM EXTRA STRENGTH PO), Take 1 tablet by mouth at bedtime., Disp: , Rfl: ursodiol 250 MG tablet, Take 1 tablet by mouth 2 times daily., Disp: , Rfl: ALLERGIES: No Known Allergies FOCUSED REVIEW OF SYSTEMS: Negative for nausea, vomiting, abdominal pain and diarrhea VITAL SIGNS: Vitals: 02/25/24 0752 BP: 135/67 Pulse: 63 SpO2: 100% PREPROCEDURE PHYSICAL EXAM: AIRWAY: normal, Mallampati: Class II (complete visualization of the uvula) HEART: Regular and No murmur PULMONARY: Lungs clear to auscultation bilaterally ABDOMEN: Soft, nontender, nondistended ASSESSMENT: Jcus Jeimy Dunaway is a 58 y.o. male is ready for the planned procedure. ASA Class: ASA 3 - Patient with moderate systemic disease with functional limitations PLAN: Will plan to proceed with ERCP using General Anesthesia. Glenn Ignacio MD [facility]12-26-[facility] History and physical note* Glenn Ignacio MD - 02/25/2024 8:30 AM EST ENDOSCOPIC PREPROCEDURE HISTORY AND PHYSICAL HISTORY OF PRESENT ILLNESS: Jc Dunaway is a 58 y.o. male seen in the pre-procedure area at [facility]. The indication for endoscopic evaluation includes: PSC (primary sclerosing cholangitis) PAST MEDICAL HISTORY: Past Medical History: Diagnosis [...] Laterality: N/A; Surgeon: Miroslava Joiner MD; Location: [facility] MAIN OR ENDOSCOPY SMALL INTESTINE POUCH DIAGNOSTIC N/A 04/22/2021 Laterality: N/A; Surgeon: Miroslava Joiner MD; Location: [facility] ENDOSCOPY COLOPROCTECTOMY TOTAL W/ LOOP ILEOSTOMY OR CREATION ILEAL RESERVOIR LAPAROSCOPIC N/A 02/12/2021 Laterality: N/A; Surgeon: Miroslava Joiner MD; [facility] N/A 02/04/2021 Laterality: N/A; Surgeon: Miroslava Joiner MD; Location: [facility] ENDOSCOPY HIP REPLACEMENT Left 2005 COLONOSCOPY DIAGNOSTIC Nov 20202001 MEDICATIONS: Current Outpatient Medications Medication Instructions Cholestyramine light 4 g, Oral, DAILY diphenhydrAMINE-APAP, sleep, (TYLENOL PM EXTRA STRENGTH PO) 1 tablet, Oral, DAILY AT BEDTIME ursodiol (ACTIGALL) 250 mg, Oral, 2 TIMES DAILY Current Outpatient Medications: Cholestyramine light 4 g Pack packet, Take 1 packet by mouth daily., Disp: , Rfl: diphenhydrAMINE-APAP, sleep, (TYLENOL PM EXTRA STRENGTH PO), Take 1 tablet by mouth at bedtime., Disp: , Rfl: ursodiol 250 MG tablet, Take 1 tablet by mouth 2 times daily., Disp: , Rfl: ALLERGIES: No Known Allergies FOCUSED REVIEW OF SYSTEMS: Negative for nausea, vomiting, abdominal pain and diarrhea VITAL SIGNS: Vitals: 02/25/24 0752 BP: 135/67 Pulse: 63 SpO2: 100% PREPROCEDURE PHYSICAL EXAM: AIRWAY: normal, Mallampati: Class II (complete visualization of the uvula) HEART: Regular and No murmur PULMONARY: Lungs clear to auscultation bilaterally ABDOMEN: Soft, nontender, nondistended ASSESSMENT: Jc Dunaway is a 58 y.o. male is ready for the planned procedure. ASA Class: ASA 3 - Patient with moderate systemic disease with functional limitations PLAN: Will plan to proceed with ERCP using General Anesthesia. Glenn Ignacio MD documented in this [facility]12[facility]19-2024 Evaluation note * Diagnosis Onset Date Resolution Status Admit Date Cancer of sigmoid colon chronic D ecember 2023 1:03pm Iron deficiency anemia due t o chronic blood loss chronic January 1:03pm Acquired dilation of common bile duct acute April 11, 025 2:40pm Diarrhea acute April 11, 2024 2:40pm Weight loss acute April 2:40pm Elevated LFTs chronic April 112024 2:40pm Transaminitis chronic April 112024 2:40pm Ulcerative colitis chronic Februa 2024 2:40pm Colon cancer deleted April 2:40pm Hemorrhoids acute May 03 8:44am [facility] Work Phone: 1(540) 285-476110-23-2024 History of Present illness Narrative* Babs Marley MD - 12/23/2023 11:00 AM EDT Images from the original note were not included. Division of Gastroenterology, Hepatology and Nutrition HEP OP NOTE: HEPATOLOGY OUTPATIENT NOTE PRIMARY CARE PHYSICIAN: Olive Valera REFERRING PROVIDER: Julio Hanson, [address] [address] HEPATOLOGY/GI DIAGNOSIS: PSC per pt report UC status-post TPC/IPAA with a pouch-rectal anastomosis - 2020 OTHER MEDICAL DIAGNOSIS: REASON FOR VISIT/CONSULT: Primary sclerosing cholangitis HISTORY OF PRESENT ILLNESS: Jc Dunaway is a 58 y.o. C male with probable PSC, UC, here to establish care . NO records available I have reviewed the medical, surgical, and social history and have updated medication and allergy information in the computerized patient record. Was told have PSC in November via MRI done in October and then had the ERCP November. Was started on ursodiol 2 weeks back Was started on cholesytramine on apr 2023. Was not having any itching then Weight low since his surgery in 2020. Had colectomy for dysplasia. Today in clinic the patient denies fevers, chills, lightheadedness, abdominal pain, diarrhea, constipation, jaundice, pruritus, GI bleeding, nausea, vomiting, weight loss, ascites or confusion REVIEW OF SYSTEMS: Constitutional: no fevers, no chills, no weakness. HEENT: no blurring of vision, no diplopia. Respiratory: no sob, no wheezing, no cough. Cardiovascular: no chest pain, no PND/orthopnea, no edema Gastrointestinal: no diarrhea, no abdominal pain, no nausea, no vomiting. Genitourinary: no dysuria Musculoskeletal: no joint pain, ROM not limited. Neurological: no headache, no focal deficits. Psychiatry: no anxiety, no depression. All other systems were reviewed and were negative. Past medical History: Past Medical History: Diagnosis Date Colon cancer 10/2020 Ulcerative colitis diagnosed in the 80s- no surgery Past surgical History: Past Surgical History: Procedure Laterality Date EXAM UNDER ANESTHESIA ANORECTAL N/A 02/28/2022 Laterality: N/A; Surgeon: Miroslava Joiner MD; Location: [facility] PERIOP ENDOSCOPY SMALL INTESTINE POUCH DIAGNOSTIC N/A 02/28/2022 Laterality: N/A; Surgeon: Miroslava Joiner MD; Location: [facility] PERIOP LOOP ILEOSTOMY CLOSURE N/A 06/04/2021 Laterality: N/A; Surgeon: Miroslava Joiner MD; Location: [facility] MAIN OR ENDOSCOPY SMALL INTESTINE POUCH DIAGNOSTIC N/A 04/22/2021 Laterality: N/A; Surgeon: Miroslava Joiner MD; Location: [facility] ENDOSCOPY COLOPROCTECTOMY TOTAL W/ LOOP ILEOSTOMY OR CREATION ILEAL RESERVOIR LAPAROSCOPIC N/A 02/12/2021 Laterality: N/A; Surgeon: Miroslava Joiner MD; Location: [facility] MAIN OR SIGMOIDOSCOPY DIAGNOSTIC N/A 02/04/2021 Laterality: N/A; Surgeon: Miroslava Joiner MD; Location: [facility] ENDOSCOPY HIP REPLACEMENT Left 2005 COLONOSCOPY DIAGNOSTIC Nov 20202001 ALLERGIES: No Known Allergies HOME MEDICATIONS: Current Outpatient Medications Medication Instructions Cholestyramine light 4 g, Oral, DAILY diphenhydrAMINE-APAP, sleep, (TYLENOL PM EXTRA STRENGTH PO) 1 tablet, Oral, DAILY AT BEDTIME Diphenoxylate-atropine 2.5-0.025 MG tablet EC/DR Take 1-2 tablets by mouth 4 times daily as needed for Diarrhea. ursodiol (ACTIGALL) 250 mg, Oral, 2 TIMES DAILY SOCIAL HISTORY: Social Situation: lives with at home. 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 thin Eyes: Sclera icteric. ENT: No oral lesions. Skin: No spider angiomata, + jaundice, no palmar erythema, no Agusto s nails no xanthelasma. Respiratory: Lungs clear to auscultation. Cardiovascular: Regular rate, no murmurs, no edema b/l. Abdomen: Soft, non-tender, liver , spleen not palpable, no ascites. Extremities: No muscle wasting, no gross arthritic changes. Neurologic: Alert and oriented, cranial nerves grossly intact, no asterixis. LABS I have personally reviewed and interpreted the following labs Lab Results Component Value Date WBC 6.45 12/23/2023 HGB 12.6 (L) 12/23/2023 HCT 37.4 (L) 12/23/2023 MCV 95.9 (H) 12/23/2023 Lab Results Component Value Date GLUCOSE 58 (L) 12/23/2023 CALCIUM 9.1 12/23/2023 CO2 25 12/23/2023 BUN 13 12/23/2023 Lab Results Component Value Date INR 1.3 (H) 12/23/2023 Lab Results Component Value Date ALT 77 (H) 12/23/2023 AST 124 (H) 12/23/2023 ALKPHOS 400 (H) 12/23/2023 MELD 3.0: 16 at 12/23/2023 11:43 AM MELD-Na: 15 at 12/23/2023 11:43 AM Calculated from: Serum Creatinine: 0.65 mg/dL (Using min of 1 mg/dL) at 12/23/2023 11:43 AM Serum Sodium: 139 mmol/L (Using max of 137 mmol/L) at 12/23/2023 11:43 AM Total Bilirubin: 5.0 mg/dL at 12/23/2023 11:43 AM Serum Albumin: 3.6 g/dL (Using max of 3.5 g/dL) at 12/23/2023 11:43 AM INR(ratio): 1.3 at 12/23/2023 11:43 AM Age at listing (hypothetical): 58 years Sex: Male at 12/23/2023 11:43 AM IMAGING: IMPRESSION: Mild gallbladder distention with small gallstone, borderline wall thickening and trace adjacent edema along the fundus of the gallbladder. Correlate for clinical evidence of cholecystitis. Nuclear medicine hepatobiliary scan could further evaluate if clinically ambiguous. Diffuse mild peripheral intrahepatic biliary dilatation with paucity of hilar duct concerning for occult hepatic hilar mass. Recommend MRI liver with and without IV contrast and delayed phase to further evaluate for malignancy. Nonspecific lack of extrahepatic ductal visualization along the proximal pancreatic segment with normal distal reconstitution of uncertain significance, possibly secondary to a diminutive caliber of the duct and low [id number], though occult pancreatic mass is not excluded. Recommend attention to pancreatic head on multiphase liver MRI recommended above. Consider ERCP. I personally viewed and interpreted these imaging studies listed above ENDOSCOPY REPORTS/PATHOLOGY REPORTS: ERCP 12/2023: Findings: The temporary office assistant film was normal. The esophagus was successfully intubated under direct vision. The scope was advanced to a normal major papilla in the descending duodenum without detailed examination of the pharynx, larynx and associated structures, and upper GI tract. The upper GI tract was grossly normal. A long 0.025 inch Jagwire was passed into the biliary tree. The short-nosed traction sphincterotome was passed over the guidewire and the bile duct was then deeply cannulated. Contrast was injected. I personally interpreted the bile duct images. The flow of contrast through the ducts was poor. Image quality was adequate. Contrast extended to the main bile duct. Opacification of the main bile duct was successful. The maximum diameter of the ducts was 5 mm. The hepatic duct bifurcation contained a single localized stenosis less than one mm in length. The gallbladder contained one stone, which was 6 mm in diameter. A 5 mm biliary sphincterotomy was made with a traction (standard) sphincterotome using ERBE electrocautery. There was no post-sphincterotomy bleeding. The biliary tree was swept with a 12 mm balloon starting at the bifurcation. Nothing was found. Dilation of the hepatic duct bifurcation with 10-12 Fr catheter dilator was successful. Cells for cytology were obtained by brushing in the hepatic duct bifurcation. Impression: - A single localized biliary stricture was found. The stricture was indeterminate. - Cholecystolithiasis was found. [Removal]. - A biliary sphincterotomy was performed. - The biliary tree was swept and nothing was found. - The hepatic duct bifurcation was successfully dilated. - Cells for cytology obtained at the hepatic duct bifurcation. Recommendation: referral to tertiary care center for the evaluation of primary sclerosing cholangitis and possible cholangiocarcinoma DIAGNOSIS CYTOLOGY A. Common bile duct brush tip fluid (cytospin and cellblock): Negative for malignant cells. See cytology study. B. Common bile ducts brushings (smears): Negative for malignant cells. See cytology study. SJ.mr 12/03/2023 ASSESSMENT/PLAN: Jc Dunaway is a 58 y.o. C male with probable PSC, UC, here to establish care . NO records available PSC: - Will get labs. Will try and get records - Might need LT evals as clinically has jaundice - Continue urosdiol and cholestyramine Education: - Avoid all alcohol - Discussed low-salt diet and to maintain salt intake of less than 2 g a day - Discussed avoiding raw seafood including shellfish - Discussed limiting use of Tylenol till less than 2 g a day and to avoid use of all NSAIDs - Discussed that patient needs to maintain a high-protein( 1.2- 1.5 g/kg/day), - Discussed that patient needs to maintain physical activity at least 3 times a week 30 minutes of cardio exercise or resistance training Health Care Maintenance: - Immunizations: - Immunization History Administered Date(s) Administered COVID-19 monovalent vaccine, mRNA, Pfizer, 0.3 ML 05/23/2020, 06/13/2020 - PCV13/PSV23:defer - Hep A/B:check - Influenza: defer - COVID:defer - Colonoscopy: need to obtain records Return to clinic in 6 months Babs GILES [employer] Teacher in Clinical Medicine Department of Internal medicine Pager:[phone] * Isrrael Bernal - 12/23/2023 11:00 AM EDT This BALANCE WHEEL HAND FILER verified patient's name and Flaca is present. documented in this [facility]10-23-2024 Instructions* Patient Instructions* Babs Marley MD - 12/23/2023 11:00 AM EDT - labs today documented in this [facility]10-23-2024 Miscellaneous Notes* Addendum Note - Babs Marley MD - 12/23/2023 11:00 AM EDTAddended by: BABS MARLEY on: 12/23/2023 04:37 PM Modules accepted: Orders documented in this [facility]10-23-2024 Note* Addendum Note - Babs Marley MD - 12/23/2023 11:00 AM EDTAddended by: BABS MARLEY on: 12/23/2023 04:37 PM Modules accepted: Orders [facility]12-11-2023 History of Present illness Narrative* Salty Mead MD - 02/09/2023 8:15 AM EST ENDOSCOPIC PREPROCEDURE HISTORY AND PHYSICAL HISTORY OF PRESENT ILLNESS: Jc Dunaway is a 57 y.o. male seen in the pre-procedure area at [facility] ENDOSCOPY. The indication for endoscopic evaluation includes: History of ulcerative colitis Jc Dunaway is a 55 y.o. male with a [...] Miroslava Joiner MD; Location: [facility] MAIN OR ENDOSCOPY SMALL INTESTINE POUCH DIAGNOSTIC N/A 04/22/2021 Laterality: N/A; Surgeon: Miroslava Joiner MD; Location: [facility] ENDOSCOPY COLOPROCTECTOMY TOTAL W/ LOOP ILEOSTOMY OR CREATION ILEAL RESERVOIR LAPAROSCOPIC N/A 02/12/2021 Laterality: N/A; Surgeon: Miroslava Joiner MD; Location: [facility] MAIN OR SIGMOIDOSCOPY DIAGNOSTIC N/A 02/04/2021 Laterality: N/A; Surgeon: Miroslava Joiner MD; [facility] HIP REPLACEMENT Left 2005 COLONOSCOPY DIAGNOSTIC [...] SpO2: 100% 100% Height: 1.676 m (5' 6) PREPROCEDURE PHYSICAL EXAM: AIRWAY: normal, Mallampati: Class II (complete visualization of the uvula) HEART: HDS. PULMONARY: Normal work of breathing, no respiratory distress. ABDOMEN: Soft, nontender, nondistended ASSESSMENT: Jc Dunaway is a 57 y.o. male is ready for the planned procedure. ASA Class: ASA 3 - Patient with moderate systemic disease with functional limitations PLAN: Will plan to proceed with POUCHOSCOPY using Monitored Anesthesia Care. Miroslava Joiner MD [facility] Nurse Note* Hemal Kelsey RN - 02/09/2023 8:15 AM EST PT Given discharge paperwork and reviewed per MD and nurse. Liaison Officer at bedside. Diet and restrictions reviewed as well. Venous access removed no complications noted. Ok to d/c Anesthesia and procedural . [facility] Surgical operation note* Hemal Kelsey RN - 02/09/2023 8:15 AM EST PT Given discharge paperwork and reviewed per MD and nurse. Liaison Officer at bedside. Diet and restrictions reviewed as well. Venous access removed no complications noted. Ok to d/c Anesthesia and procedural MD. [facility]12-30-[facility] Miscellaneous Notes* Brief Op Note - Miroslava Joiner MD - 02/28/2022 8:45 AM EST Jc Dunaway ([id number]) PRE OPERATIVE DIAGNOSIS Ulcerative pancolitis with other [...] - Primary ANESTHESIOLOGIST Anesthesiologist: Piyush David MD SHIPPER RECEIVER: Darline Valle APRN-SHIPPER RECEIVER SURGICAL STAFF Director Loan: Maris Lewis RN; Meera Wells RN Scrub Person: Bj Garcia COMPLICATIONS None ESTIMATED BLOOD LOSS Minimal SPECIMENS below ID Type Source Tests Collected by Time Destination 1 : Right anterior anal lesion Permanent TISSUE SURG PATH REQUEST Miroslava Joiner MD 02/28/2022 0736 2 : Rectal Cuff-History of ulcerative colitis Permanent TISSUE SURG PATH REQUEST Miroslava Joiner MD02/28/2022 0743 Miroslava Joiner MD February 28, 2022 1:47 PM * Op Note - Miroslava Joiner MD - 02/28/2022 7:53 AM EST Pre-op Diagnosis: Ulcerative colitis status post J-pouch [...] via spontaneous airway Anesthesiologist: Piyush David MD SHIPPER RECEIVER: MT Mitchell EBL: Minimal Complication: None Counts: Reported as correct. No foreign bodies identified on inspection of the anus Specimens: Right anterior anal lesion and rectal cuff Statement of Medical Necessity Mr. Dunaway is a 56 y.o. male with a [...] Operation After informed consent was obtained, Mr. Dunaway was brought to the operating room. he [...] mild amount of inflammation in the cuff. Idid take several biopsies there just has surveillance for dysplasia. The patient tolerated the procedure well. he was covered with dry dressings and taken to the recovery room. [facility] Note* Brief Op Note - Miroslava Joiner MD - 02/28/2022 8:45 AM EST Jc Dunaway ([id number]) PRE OPERATIVE DIAGNOSIS Ulcerative pancolitis with other [...] - Primary ANESTHESIOLOGIST Anesthesiologist: Piyush David MD SHIPPER RECEIVER: Darline Valle APRN-SHIPPER RECEIVER SURGICAL STAFF Director Loan: Maris Lewis RN; Meera Wells RN Scrub Person: Bj Garcia COMPLICATIONS None ESTIMATED BLOOD LOSS Minimal SPECIMENS below ID Type Source Tests Collected by Time Destination 1 : Right anterior anal lesion Permanent TISSUE SURG PATH REQUEST Miroslava Joiner MD 02/28/2022 0736 2 : Rectal Cuff-History of ulcerative colitis Permanent TISSUE SURG PATH REQUEST Miroslava Joiner MD02/28/2022 0743 Miroslava Joiner MD February 28, 2022 1:47 PM [facility]12[facility] Nurse Surgical operation note* Alia Alamo RN - 02/28/2022 8:20 AM EST 0825 Discharge instructions reviewed with patient and , all questions answered, AVS provided 0831 Dr. David, Anesthesia MD at bedside for post-op eval 0845 Patient discharged to home with , ambulated to car with steady gait. [facility]12[facility]30-[facility] Nurse Note* Alia Alamo RN - 02/28/2022 8:20 AM EST 0825 Discharge instructions reviewed with patient and , all questions answered, AVS provided 0831 Dr. David, Anesthesia MD at bedside for post-op eval 0845 Patient discharged to home with , ambulated to car with steady gait. * Maris Lewis RN - 02/28/2022 7:52 AM EST Patient transported to PACU, O2 in place, report given to SUPERVISOR BRAIDING. [facility]* Op Note - Miroslava Joiner MD - 02/28/2022 7:53 AM EST Pre-op Diagnosis: Ulcerative colitis status post J-pouch [...] via spontaneous airway Anesthesiologist: Piyush David MD SHIPPER RECEIVER: MT Mitchell EBL: Minimal Complication: None Counts: Reported as correct. No foreign bodies identified on inspection of the anus Specimens: Right anterior anal lesion and rectal cuff Statement of Medical Necessity Mr. Dunaway is a 56 y.o. male with a [...] Operation After informed consent was obtained, Mr. Dunaway was brought to the operating room. he [...] mild amount of inflammation in the cuff. Idid take several biopsies there just has surveillance for dysplasia. The patient tolerated the procedure well. he was covered with dry dressings and taken to the recovery room. [facility]12-30-2022 Hospital Discharge instructions* Discharge Instructions* Miroslava Joiner MD - 02/28/2022 7:53 AM [...] this at the pharmacy [facility] Surgical operation note* Maris Lewis RN - 02/28/2022 7:52 AM EST Patient transported to PACU, O2 in place, report given to SUPERVISOR BRAIDING. [facility] History and physical note* Miroslava Joiner MD - 02/28/2022 7:01 AM EST HPI: 56 y.o. yo male here for pouchoscopy and excision of anal lesion New symptoms: sore sometimes Past Medical History: Diagnosis Date Colon cancer 10/2020 Ulcerative colitis diagnosed in the 80s- no surgery Past Surgical History: Procedure Laterality Date LOOP ILEOSTOMY CLOSURE N/A 06/04/2021 Laterality: N/A; Surgeon: Miroslava Joiner MD; Location[facility] MA[facility] OR ENDOSCOPY SMALL INTESTINE POUCH DIAGNOSTIC N/A 04/22/2021 Laterality: N/A; Surgeon: Miroslava Joiner MD; [facility] COLOPROCTECTOMY TOTAL W/ LOOP ILEOSTOMY OR CREATION ILEAL RESERVOIR LAPAROSCOPIC N/A 02/12/2021 Laterality: N/A; Surgeon: Miroslava Joiner MD; [facility] DIAGNOSTIC N/A 02/04/2021 Laterality: N/A; Surgeon: Miroslava Joiner MD; Location: [facility] ENDOSCOPY HIP REPLACEMENT Left 2005 COLONOSCOPY DIAGNOSTIC [...] (Infrared) Resp 22 Ht 1.676 m (5' 6) Wt 47.2 kg (104 lb) SpO2 100% BMI 16.79 kg/m Smoking Status Never Body mass index is 16.79 kg/m . General appearance: well Lungs: ctab Heart: rrr Abdomen: soft Tests none A/ UC, anal lesion P/ EUA, pouchoscopy, biopsy of anal lesion in OR today [facility]12[facility] History and physical note* Miroslava Jioner MD - 02/28/2022 7:01 AM EST HPI: 56 y.o. yo male here for pouchoscopy and excision of anal lesion New symptoms: sore sometimes Past Medical History: Diagnosis Date Colon cancer 10/2020 Ulcerative colitis diagnosed in the 80s- no surgery Past Surgical History: Procedure Laterality Date LOOP ILEOSTOMY CLOSURE N/A 06/04/2021 Laterality: N/A; Surgeon: Miroslava Joiner MD; Location: [facility] MAIN OR ENDOSCOPY SMALL INTESTINE POUCH DIAGNOSTIC N/A 04/22/2021 Laterality: N/A; Surgeon: Miroslava Joiner MD; Location: [facility] ENDOSCOPY COLOPROCTECTOMY TOTAL W/ LOOP ILEOSTOMY OR CREATION ILEAL RESERVOIR LAPAROSCOPIC N/A 02/12/2021 Laterality: N/A; Surgeon: Miroslava Joiner MD; Location: [facility] MAIN OR SIGMOIDOSCOPY DIAGNOSTIC N/A 02/04/2021 Laterality: N/A; Surgeon: Miroslava Joiner MD; Location: [facility] ENDOSCOPY HIP REPLACEMENT Left 2005 COLONOSCOPY DIAGNOSTIC [...] at 02/28/22 0648, New Bag at 02/28/22 06 Exam BP 120/72 (BP Location: Left arm, BP Position: Lying) Pulse 66 Temp 98.2 F (36.8 C) (Infrared) Resp 22 Ht 1.676 m (5' 6) Wt 47.2 kg (104 lb) SpO2 100% BMI 16.79 kg/m Smoking Status Never Body mass index is 16.79 kg/m . General appearance: well Lungs: ctab Heart: rrr Abdomen: soft Tests none A/ UC, anal lesion P/ EUA, pouchoscopy, biopsy of anal lesion in OR today [facility]12[facility] History of Present illness Narrative* Nirali Maya RN - 02/07/2022 8:[address] Joiner contacted to see if bowel prep needed for pouchoscopy. Per Dr Joiner no special bowel prep needed for pouchoscopy. [facility] in this [facility]10[facility] History of Present illness Narrative* Miroslava Joiner MD - 12/26/2021 3:15 PM EDT CC: Chief Complaint Patient presents with Follow-up [...] improve his anal pain. I will see himback in the office in one month for [...] 137/84 Pulse 69 Ht 1.676 m (5' 6) Wt 47.4 kg (104 lb 8 oz) BMI 16.87 kg/m Smoking Status Never Body mass index is 16.87 kg/m . General appearance: Thin but overall more energetic than I have seen him in the past Varnish Blender: Chhaya Melendrez RN On the right anterior [...] ulcerative colitis complicated by multiple cancers at thetime of resection. That was less than one [...] whole pouch and biopsy the rectal cuff * Chhaya Melendrez RN - 12/26/2021 3:15 PM EDT Chhaya Melendrez RN acted as store gift wrap associate for this exam. [facility] Instructions* Patient Instructions* Valentin Fine - 12/26/2021 3:15 PM EDT Prep for procedure : Clear liquids the evening before surgery and nothing by mouth after midnight. BEFORE SURGERY: [] PRE-PROCEDURE PREPARATION (COMPAC) Date: 02/07/2022 Call Time: 0830AM Patients who are scheduled for a surgical or other procedure at [facility] may be required to complete a pre-operative phone call. A nurse will collect information about your health, fitness, previous operations, allergies and more. This helps prepare the surgeon, the anesthesiologist and you by identifying any potential anesthetic, surgical or post-operative complications. If applicable, you maybe referred to undergo an electrocardiogram (ECG), blood or urine tests or other tests. You will also receive pre- and post-surgery instructions to help ensure you are completely informedabout what to expect. DAY OF SURGERY: IMPORTANT: If you develop cold/flu like symptoms prior to surgery, please contact our office at [phone] Please note that this schedule is subject to change, you may be contacted up to 24 hours in advanceof surgery for any necessary adjustments. This may include an arrival time as early as 5:00 AM. Please plan accordingly. [] SURGERY SCHEDULE YOUR SURGERY DATE: 02/28/22 YOUR SURGERY TIME: to be given 1 day prior to surgery ARRIVAL TIME: to be given 1 day prior to surgery [facility] [place] [address] Office #: [phone] Fax #: [phone] CURRENT COVID VISITOR POLICY: These visitor policy [...] service home, an adult, other than the straight truck driver, needs to ride with you for your safety. This person will also be responsible for communicatingpost-operative instructions to you. If you would like to sign up for text messages for [facility] appointment reminders text [facility] [facility] TO [id number].You will receive a response within a few [...] them before a surgery can also increase thechance of bleeding. Apixiban (Eliquis) Clopidogrel (Plavix) Dabigatran [...] your surgery to prevent problems. Use this listas a guide. If you are not sure [...] the hospital. Do not wear makeup, nail luxembourger or hair pins to the hospital. Please [...] a living will or durable power of civil attorney, please bring a copy of the [...] You will need 2 of the 4-ounce bottlesor Hibiclens Foam wash. There may be a [...] to the part on your body where thesurgery will be done. Be sure to wash [...] the shower, do a sponge bath each time.Do not wash your hair unless you are [...] call your doctor s office. From the North ([place]) Take any major highway to [address] Take exit [address] to merge onto [address] toward Take exit [address] [facility] toward [place] Use the right [place] to take exit [address] Turn right onto [address] Use the left [place] to turn left at E [facility] Turn left From the South ([place]) Take any major highway to [address] Use the middle 2 lanes to take the exit toward [address] Continue onto [address] Take exit 1D to merge onto [address] Take the [address] exit Take exit [address] Keep left to continue on Exit 30, follow signs for [place] Take exit [address] Turn right onto [address] Use the left [place] to turn left at [address] Turn left From the East ([place]) Take any major highway to [address] toward [place] Turn right onto [address] Turn left to merge onto [address] toward [address] Continue onto [address] Take exit [address] Turn right onto [address] Use the left [place] to turn left at [address] Turn left From the West ([place], [place] and [place]) Take any major highway to [address] [place] Take exit 96 [address] toward [place] Take the [address] exit Take exit [address] Keep left to continue on Exit 30, follow signs for [place] Take exit [address] Turn right onto [facility] [address] Use the left [place] to turn left at [address] Turn left Financial Obligation: Your insurance many require an authorization prior to the procedure. Our pre- cert office will be contacting your insurance to see if authorization is required. If you have questions about how much your insurance will pay, please contact your insurance directly. Please be prepared to pay your co-pay, co- insurance, or deductible on the day of your surgery. We request patients with insurance that is less than 100% coverage to pay a deposit prior to the procedure being performed. A front desk representative from the [facility] will contact you to pre-register you for your services. If you have not received a call by two days prior to your procedure date, please call our Pre-Registration Department at [phone] or [phone]. By calling us in advance, your wait time will be reduced. Our trained representatives can assist you in discussing both your physician and hospital obligations. Are you a [place] user? If yes, you can log on and complete a pre-registration questionnaire. It Support Manager: You are not eligible for Financial Assistance if you are entering the [facility] solely to seek medical treatment. We want to make sure all patients have access to quality healthcare services at [facility], and we are committed to working with [...] an assistance program. Our financial counselors can helpyou complete applications for government-sponsored programs, describe other financial assistance programs that can help offset costs, or structure workable payment plans for your required medical treatment if you meet certain financial criteria. They can also assist you in explaining your options related to the Affordable Care Act. These options include helping you apply for: [place] Medicaid (if your income meets guidelines) The Affordable Care Act Insurance Exchange Program. Other federal/state assistance programs Or establish a payment plan Other Assistance: [facility] offers an additional sliding scale financial assistance [...] please contact the Financial Counseling Department at [phone] between 8 a.m. and 5 p.m. . A financial counselor can assist you with the application process. You will be screened for all potential programs. If you appear to beeligible for Medicaid, you will be assisted through the application process. As a Medicaid recipient, your physician fees and facility fees could be covered. Services not covered by [facility] financial assistance program: Physician Fees Transportation fees Dental Services Medically unnecessary services Prescriptions Durable Medical Equipment We Are 100% Tobacco-Free At The [facility], we care about the health of our patients, visitors andstaff. That s why all of our locations - inside and outside - are 100% tobacco-free. We understand that nicotine is addictive, and we regret the inconvenience to tobacco users. However, as an academic medical center with leading cancer and heart hospitals, creating a healthy environment for everyone who attends, works and visits our Medical Center is important. documented in this encounterOSU [facility] Instructions* Patient Instructions* Nirali Hammer RN - 07/11/2021 12:42 PM EDT Use Desitin in your anal area to protect your skin Follow the instructions in the handout that you received regarding care of your anal area documented in this encounterOSU [facility] History of Present illness Narrative* Miroslava Joiner MD - 07/11/2021 11:45 AM EDT Attending Attestation I have seen and examined [...] well postop Continue to follow with Dr. Zavala for cancer surveillance Annual pouchoscopy and biopsies of rectal cuff to ensure he does not develop dysplasia. He can do that here with me or with Dr. Hanson in [place]. * Nirali Hammer RN - 07/11/2021 11:45 AM EDT Swati Hammer RN acted as medical store gift wrap associate for the procedure/exam/test. * Faviola Felipe Jimenes, WATER TREATMENT OPERATOR-FILTER TIP CATCHER - 07/11/2021 11:45 AM EDT Chief complaint: Postoperative follow up HPI: Mr. Dunaway returns for follow up after undergoing loop [...] a lot of burning rectal pain that hehas tried numerous ointments on without relief. He denies abdominal pain. He has had occasional bleeding on his toilet paper and in his toilet bowl. He denies any nausea, vomiting, fevers or chills. He states that his appetite has been good and he only feels occasionally fatigued. He does endorse asmall amount of weight loss. He states that the ileostomy site has nearly completely healed and they are no longer packing the wound. Vitals: 07/11/21 1202 07/11/21 1205 BP: 113/68 Pulse: 64 Weight: 47.6 kg (104 lb 14.4 oz) Height: 1.676 m (5' 6) Physical Exam: Gen: Alert and oriented x 3, no acute distress Abdomen: Soft, nontender, nondistended. Wound c/d/i, no drainage. Anorectal: Perianal skin with a lot of irritation and moisture, circumferential skin tags. Digital rectal examination reveals no masses or gross blood. This exam was performed in the presence of a medical store gift wrap associate, Nriali Hammer RN. The following tests results were reviewed: Pathologic Diagnosis A. Ileostomy, takedown: Histologic changes consistent with ostomy Negative for dysplasia or malignancy A/P: Mr. Dunaway is overall doing well after surgery. He will need to have yearly pouchoscopy moving forward. He is to follow-up with our office as needed. He is agreeable with this plan. I went over Mr. Dunaway's history of present illness independently. The physical exam was done alongside Miroslava Joiner MD. All medical and procedural decision making was done by Miroslava Joiner MD. Faviola Salas APRN,FILTER TIP CATCHER documented in this encounterOSUniversity [facility]04-07-2022 Note* Nursing Notes - Meena Zambrano RN - 06/06/2021 5:31 PM EDT RN went over all discharge instructions with patient and . RN discussed all incision care instructions, all follow-up appointments, and when to call should any concerns arise (wound infection symptoms, unrelieved pain, etc.). Patient and stated understanding and all questions were answeredat this time. RN completed patient teaching involving how to pack wound. stated understanding and all questions were answered at this time. RN provided patient with gauze, tape, swabs, saline, and fluffs. RN removed patient's peripheral IV per policy, catheter was intact. Patient left floor with all belongings, all incision care supplies, and all discharge instructions in wheelchair with AUDIO TAPE LIBRARIAN. Patient will be driven home by . [facility]04-07-2022 Miscellaneous Notes* Nursing Notes - Meena Zambrano RN - 06/06/2021 5:31 PM EDT RN went over all discharge instructions with patient and . RN discussed all incision care instructions, all follow-up appointments, and when to call should any concerns arise (wound infection symptoms, unrelieved pain, etc.). Patient and stated understanding and all questions were answeredat this time. RN completed patient teaching involving how to pack wound. stated understanding and all questions were answered at this time. RN provided patient with gauze, tape, swabs, saline, and fluffs. RN removed patient's peripheral IV per policy, catheter was intact. Patient left floor with all belongings, all incision care supplies, and all discharge instructions in wheelchair with AUDIO TAPE LIBRARIAN. Patient will be driven home by . * Nursing Notes - Chaparrita Parker RN - 06/06/2021 11:48 AM EDT 06/06/21 1146 Referral Information Arrived From operating room Final Discharge Planning Discharge Disposition Home Services at Discharge Wound/drain/line/ostomy-supplies CM/SW AVS Portion Completed Yes Community Agency Name(s) For Handoff [facility] Name For Handoff Will need to send scripts. Phone For Handoff [phone] Plan Plan Home with assistance from , [...] packing. Consults with Final Discharge Recommendations None Lines/Tubes/Drains/Wounds/Supplies Reyna- was replaced. Pt and ok to take care of it if he fails another void trial. Team anticipates it to come out at discharge. Wet to dry wound packing- supplies to be provided by [facility]. Awaiting scripts from team. Medications No barriers anticipated in obtaining discharge medications. No prior authorizations anticipated. Reconciliation of medications to be completed by the medical team. Durable Medical Equipment Was getting ostomy supplies from [facility], now will get wound care supplies. Choice [...] [facility]iner General and Gastrointestinal Surgery Outpatient Care [place] Arrive at: Arrive to 1st Floor Registration [...] any additional discharge planning needs. CHRISTY Samaniego [phone] If any changes to this individualized plan of care during evening and weekend hours and assistance is needed, please page the operator receptionist PCRM at [phone]. Addendum @ 12pm: Team reports they will try a void trial today and patient could leave as early as today. Scripts uploaded and Aidin referral created for [facility] for wound care supplies. Nurse updated of plan. * Nursing Notes - Belkis Sanders RN - 06/05/2021 5:17 PM EDT 06/05/21 1635 Referral Information Arrived From home or self-care Readmission Information Was patient readmitted within 30 Days? No Information Source Information Source patient ;spouse Information Source Name Patient Jc and spouse Flaca Information Source Number in person verified contacts Outpatient Providers Outpatient Providers Updated In IHIS Yes Contact Information Hair Spinning Machine Operator/SW Added to Care Team Yes This Parquet Floor Layer'S Helper is Primary Hair Spinning Machine Operator/SW No Hair Spinning Machine Operator Name Belkis Whitlock PCR for CHRISTY Andujar Social Work Contact Name [...] and children and was independent with ADL's SORT LINE WORKER Can Support Person Meet The Care Needs Of The Patient? Yes Employment/Financial Employed? 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 Employment/Financial Concerns no Source Of Income salary/wages Financial Concerns none Insurance Medical Insurance Verified Yes Contacted Financial Assistance/Updated Medical Team Yes Prescription Coverage Yes Pharmacy updated in IHIS Yes Initial Discharge Planning Home Care Services (SORT LINE WORKER) No Anticipated discharge disposition Home Anticipated Services at Discharge Outpatient follow up Anticipated Changes Related to Illness none Current Discharge Risk high risk diagnoses (i.e., CHF, Stroke, DM, chronic pain, abdominal pain, nausea and vomiting) Transportation Available car;family or friend will provide Discharge Planning Comments Plan for dsicharge homw. to provide trasport. Home Care Services (SORT LINE WORKER) Additional Home Care Services (SORT LINE WORKER) no Assessment/Concerns to be Addressed Concerns To Be Addressed denies needs/concerns at this time PCRM Initial Assessment Met with patient and spouse at bedside to complete the initial assessment. Explained role and function of PCRM in multidisciplinary team. Contact number provided for questions. Demographic information reviewed with patient/family and confirmed as correct. Reason for Admission: Jc Dunaway is a 55 y.o. male 1 Day Post-Op from ileostomy reversal Estimated length of stay: 3-5 days Advanced directives Patient does not have Advanced Directives on File Lines/Drains/Tubes PIV/ Reyna/ incision Initial PCRM Discharge Planning Patient lives in a 2 story farm house with 2-3 kash. Home has bath on 1st floor and Bedroom on 2nd floor. Patient was independent with ADL's SORT LINE WORKER. Patient has not had any HHC/SNF/DME SORT LINE WORKER. Final plan will be determined closer to discharge, pending therapy and medical team recommendations. Patient/family verbalized understanding and agreement with the plan of care. Patient/family have no questions at this time. PCRM will continue to follow patient with multidisciplinary team for ongoing assessment of needs and for discharge planning. Medical team updated. Belkis BELL [facility] Family Medicine Chair Ph: [phone] For evening and weekend discharge assistance please page the operator receptionist PCRM at [phone]. * Nursing Notes - Crissy Pedro RN - 06/05/2021 9:25 AM EDT This RN paged the team: Patient was bladder scanned with result of 418 mls. Pt unable to void. * Plan of Care - Liss Anderson RN - 06/05/2021 4:27 AM EDT Pt rested well overnight. Pt was very [...] slow down as the night went on. 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 Post-op Diagnosis: Same Procedure: Loop ileostomy closure Staff: Miroslava Joiner MD, who performed the procedure without resident assistance Anesthesia: General endotracheal EBL: Less than 50 cc Complication: none apparent Counts: Reported as correct. No foreign bodies identified on inspection Statement of Medical Necessity Mr. Dunaway is a 55 y.o. male with a history of ulcerative colitis. When I met him he had been diagnosed with a sigmoid cancer. His final pathology after total proctocolectomy showed two cancers bothof which were early stage. I performed a pouchoscopy which was normal and he is now a few months out from total proctocolectomy and J-pouch and presents for ileostomy closure.. The risks, benefits and alternatives of loop ileostomy closure were explained to him and he desiredto proceed. Operation After informed consent was obtained, Mr. Dunaway was brought to the operating room. he [...] with the SUGEY 80 stapler. The intervening mesenterywas taken between clamps and ties. A [id number] functional end-to-end anastomosis was created. A junctional [...] dressings and taken to the recovery room. * Nursing Notes - Liss Anderson RN - 06/04/2021 7:36 PM EDT Paged MD Antonio - [phone] pt with some new serosang drainage on take down site noted during shift change. Also do you want pt to get lovenox tonight or hold since he just came up from PACU? Thanks [phone] Received call back, plan to continue to monitor drainage and hold lovenox for tonight. 2100: paged MD Antonio - [phone] pt still unable to urinate. Bladder scan of 240ml. Thanks [phone] Plan to give pt another hour to [...] means he hasn't urinated since before OR, ifthat. I then confirmed that he did not [...] Antonio, no additional orders at this time. * Nursing Notes - Aislinn Liao RN - 06/04/2021 4:52 PM EDT 1645- Pt arrived to [address] [place] [address] without any complications. Oriented pt to staff, room and equipment. Call light left within reach. * Brief Op Note - Miroslava Joiner MD - 06/04/2021 3:19 PM EDT Jc Dunaway ([id number]) PRE OPERATIVE DIAGNOSIS Ileostomy dysfunction [K94.13] POST OPERATIVE DIAGNOSIS Post-Op Diagnosis Codes: * Ileostomy dysfunction [K94.13] PROCEDURE PERFORMED Procedure(s) (LRB): LOOP ILEOSTOMY CLOSURE (N/A) PRIMARY CLOSURE No INTRAOPERATIVE FINDINGS No significant abnormalities SURGEON Surgeon(s) and Role: * Miroslava Joiner MD - Primary ANESTHESIOLOGIST Anesthesiologist: Neto Mcnally MD; Zachary Weiss MD SHIPPER RECEIVER: Perlita Lemon APRN-SHIPPER RECEIVER Puppy Sitter Assisting: James Boykin MD SURGICAL STAFF Director Loan: Genesis Young RN; Ynes Bingham RN Manager Of Community Relations: Kinjal Ortiz COMPLICATIONS None ESTIMATED BLOOD LOSS Minimal SPECIMENS be;pw ID Type Source Tests Collected by Time Destination 1 : Ileostomy Permanent SURG PATH SURG PATH REQUEST Miroslava Joiner MD 06/04/2021 [id number] Miroslava Joiner MD June 04, 2021 3:19 PM documented in this encounterRiverview [facility] Institute04-07-2022 History of Present illness Narrative* Kat Hall, PHOTOGRAPHER HELPER - 06/06/2021 1:16 PM EDT Psychosocial Assessment Per chart review, patient is a 55 y.o. male with h/o colon cancer and UC. Patient is now POD+2 froman ileostomy reversal. SW met with patient to introduce self, explain social service director role during inpatient stay, and answerpatient questions. Patient was alert and oriented x4 [...] Source: patient , spouse Information Source Name: [place] Information Source Number: see demographics Contact Information Hair Spinning Machine Operator/SW Added to Care Team: Yes This Parquet Floor Layer'S Helper is Primary Hair Spinning Machine Operator/SW: Yes Hair Spinning Machine Operator Name: Chaparrita Oconnor Hair Spinning Machine Operator's Phone Number: [phone] Social Work Contact Name: Kat Hawthorne Apparel Rental Clerk's Phone Number: [phone] Living Environment Lives With: child(sujey), adult, spouse [...] Source Of Income: salary/wages Financial Concerns: none Cognitive/Perceptual/Developmental Current Mental Status/Cognitive Functioning: no deficits noted Recent Changes in Mental Status/Cognitive Functioning: no changes Developmental Stage: Stage 7 (35-65 years/Middle Adulthood) Generativity vs. Stagnation Cognitive/Perceptual/Developmental Comments: Age appropriate Emotional/Psychological Affect: no deficits noted Mood: congruent to situation Verbal Skills: no deficits noted Current Interpersonal Conduct/Behavior: appropriate to situation Mental Health Conditions/Symptoms: denies Thought Process Alterations: no deficits noted Values/Beliefs (F) Cruz Importance: Yes Spiritual Care Comment: Restoration Patient Coping/Stress Concerns Major Change/Loss/Stressor: hospitalization Patient Personal Strengths: able to adapt, courageous, self-reliant, strong support system, successful coping history Sources Of Support: adult child(sujey), hindu/yarsani organization, spouse Reaction To Health Status: accepting, [...] interested in completing health care power of civil attorney and/or living will paperwork during this [...] does NOT have to be completed at [facility] and canbe completed in the community by either a public notary or witnessed by two individuals not relatedto the patient. Patient voiced understanding and stated plan to reach out to SW should they requireadditional information and/or assistance in completing the documents. Legal NOK: Spouse, Flaca Dunaway, ph: [phone] Substance Use: Tobacco: None Alcohol: None Recreational Drugs: None Community Resources: Patient reports being connected with [place] [employer] [facility]. Patient denies needing linked with additional resources at this time. Home Health / DME: None/None Health Insurance / Rx: [id number] [place] [address] - [address]/ [employer] Anticipated Discharge Plan (include transportation): Patient anticipates discharging to home with spouse to transport. Medical Team Considerations: None SW Interventions/Recommendations: Service SW name and contact information placed on white board in patient's room to contact as needed. SW will continue to remain available to provide assistance and support as needed during inpatient stay. GABBY Lai, PHOTOGRAPHER HELPER COL//ACS Apparel Rental Clerk For evening (after 4:30 PM - 8 AM) and weekend assistance, please call operator receptionist Apparel Rental Clerk at [phone] or page [phone]. * Matt Griggs APRN-FILTER TIP CATCHER - 06/06/2021 5:46 AM EDT Colorectal Surgery Daily Progress Note Attending: Miroslava Joiner MD Length of Stay: 2 Post-Operative Day: 2 Days Post-Op S: No acute events. Feeling pretty good. No bowel function. Denies nausea. O:BP 91/51 (BP Location: Left arm, BP Position: Lying) Pulse 61 Temp 97.8 F (36.6 C) (Oral) Resp 14 Ht 1.676 m (5' 6) Wt 53.7 kg (118 lb 6.4 oz) SpO2 96% BMI 19.11 kg/m Smoking Status Never Smoker 06/05 699 - 06/06 0559 In: 1560.2 [P.O.:675; I.V.:885.2] Out: 4000 [Urine:4000] PE: General: NAD, lying in bed Pulm: Respirations easy and non labored Abd: soft, nd, approprietly tender, old ostomy site guaze packed Labs: WBC/Hgb/Hct/Plts: 6.72/11.8/35.4/222 (06/06 237) Bun/Creat/Cl/CO2/Glucose: 11/0.67/107/25/88 (06/06 237) Na/K+/Phos/Mg/Ca: 140/3.4/1.7/1.9/8.6 (06/06 237) A/P: Jc P Emelyn is a 55 y.o. male 2 Days [...] and they are in agreement. ANDRE Hobson * Arcenio Mclean - 06/05/2021 5:02 PM EDT Introduced self and role of the instruction assistant principal to patient/family. Provided emotional and spiritual support and the patient/family responded by sharing their experience and discussed the following: Experience with illness, expectations, family. Patient/family encouraged to request a instruction assistant principal as needed. Chaplains are available in-house 24 hours a day and 7 days a week. For urgent matters in the [facility],please page [phone]. If the request is not urgent, please enter a consult. Consults are responded to within 24 hours. Arcenio Mclean MDiv Hose Inspector 22/09 Licensed Customs Broker Pager for the [facility] is [phone] 06/05/21 1630 Clinical Encounter Type Visited With Patient;Family Visit Type Introduction Pastoral Time Spent 15 min Spiritual Assessment Spiritual Observation Spirituality helpful Emotional Observation Coping well Hope Observation Specific hope focus Support Observation By Family Interventions Provided Active listening;Supportive presence Facilitated Verbalization of feelings;Sharing hopes & fears Explored Expectations Compliance Associate Education Compliance Associate Service Available Yes Outcomes Patient Outcomes Articulated purpose/meaning Family Outcomes Articulated purpose/meaning Plan of Care Continue Visiting PRN * ANDRE Anders - 06/05/2021 8:54 AM EDT Colorectal Surgery Daily Progress Note Attending: Miroslava Joiner MD Length of Stay: 1 Post-Operative Day: 1 Day Post-Op S: Emesis overnight. 1L bolus given and straight cath x 1. Asymptomatic bradycardia. No blwe function. O:BP 90/61 (BP Location: Left arm, BP Position: Lying) Pulse 50 Temp 96 F (35.6 C) (Axillary) Resp 16 Ht 1.676 m (5' 6) Wt 52.4 kg (115 lb 8 oz) [...] (06/06 119) Na/K+/Phos/Mg/Ca: 136/4.5/4.5/1.8/8.9 (06/06 119) A/P: Jc Dunaway is a 55 y.o. male 1 Day [...] and they are in agreement. ANDRE Anders * Nia López MD - 06/05/2021 8:48 AM EDT Patient seen and examined at bedside. Bradycardic [...] sign off at this time. Please call [phone] or page [phone] with any questions or concerns. Nia López MD Anesthesia PGY1 [facility] 8095 Associated attestation - Piyush Daniel MD - 06/05/2021 1:55 PM EDT Acute Pain Service Attending Addendum: I reviewed the case and medical record with the resident. Based on the history and exam, I agree with the medical decision making. Piyush Daniel M.D. * Cheryle Mason APRN-FILTER TIP CATCHER - 06/04/2021 5:36 PM EDT Colorectal Surgery Post-Op Check Note S: Jc Dunaway is a 55 y.o. male who is now status post ileostomy reversal. I came to evaluatethe patient after coming up to the hospital [...] cyanosis or edema, SCDs in place A/P: Jc Dunaway is a 55 y.o. male who is now s/p ileostomy reversal. Patient is recovering well post-operatively. - Out of bed to chair tonight - monitor UO, needs to void by 8 pm. If unable to void, bladder scan and page #[phone] - pain and nausea control as needed - will continue to monitor ANDRE Anders [facility]* Nursing Notes - Chaparrita Parker RN - 06/06/2021 11:48 AM EDT 06/06/21 1146 Referral Information Arrived From operating room Final Discharge Planning Discharge Disposition Home Services at Discharge Wound/drain/line/ostomy-supplies CM/SW AVS Portion Completed Yes Community Agency Name(s) For Handoff [facility] Name For Handoff Will need to send scripts. Phone For Handoff [id number] Plan Plan Home with assistance from , [...] packing. Consults with Final Discharge Recommendations None Lines/Tubes/Drains/Wounds/Supplies Reyna- was replaced. Pt and ok to [...] Medical Equipment Was getting ostomy supplies from [place], now will get wound care supplies. Choice [...] Joiner General and Gastrointestinal Surgery Outpatient Care [place] Arrive at: Arrive to 1st Floor Registration [...] information. Patient instructed to call with questions. PCRMalinda will continue to follow with medical team for any additional discharge planning needs. CHRISTY Samaniego [phone] If any changes to this individualized plan of care during evening and weekend hours and assistance is needed, please page the operator receptionist CHRISTY at [phone]. Addendum @ 12pm: Team reports they will try a void trial today and patient could leave as early as today. Scripts uploaded and Aidin referral created for [facility] for wound care supplies. Nurse [facility] of plan. [facility] Discharge instructions* Discharge Instructions* Chaparrita Parker RN - 06/06/2021 9:15 AM EDT Your Hair Spinning Machine Operator (PCRM) has arranged your appointments for follow up based on your preference of where you would like to continue your care. If you are unable to attend appointments that have been arranged for you, it is your responsibilityto call to reschedule at least 48 hours [...] questions or concerns call and ask the roll table operator to page the neurosurgical nurse practitioner operator receptionist. Reminder: [employer] messaging goes unmonitored during evenings and weekends. Any concerns or questions during this time, please call using instructions above. Clinic Office Main Number: [phone] Hair Spinning Machine Operator: Chaparrita Parker ([facility]) SW: Kat Hall ([facility]) ENTEROSTOMAL THERAPY RN + OSTOMY Clinic+ * Medications* Chaparrita Parker RN - 06/06/2021 9:14 AM EDT Pain Medication A prescription for pain medicine may be sent home with you. Do not drive while taking prescription pain medicine. Eat when taking pain medicines to avoid nausea. When your pain decreases switch to over the counter acetaminophen, like Tylenol. Follow the dose aslabel directs. * Discharge Instr - Activity* Chaparrita Parker RN - 06/06/2021 9:14 AM [...] hot tub until instructed to do so. * Discharge Instr - Diet* Chaparrita Parker RN - 06/06/2021 9:14 AM [...] period of time, you may find it hardto eat enough fruits and vegetables. Your diet may also be too low in calcium. Talk to your doctor or dietitian about taking a multivitamin or liquid nutritional supplement. Bread Choose breads without seeds or nuts. Foods allowed: Breads, rolls, pancakes, waffles, and crackers made with enriched, refined white flour Soda crackers [place] Toasts Foods to avoid: Bread containing bran [...] as shredded wheat, All Bran, Fiber One, Nutri- Grain, and granola Popcorn Fried potatoes or other [...] or seeds Applesauce Pears, peaches Peeled apricots Prosperity Jessica cherries Ripe banana Ripe avocado Fruit [...] fat free milks Coffee Decaffeinated coffee Tea [place] Carbonated beverages Fruit juice (except prune juice) Foods to avoid: All other beverages Miscellaneous Foods allowed: Salt used in moderation Mild spices Gravy Cream sauces Foods to avoid: Rich, highly spiced, or seasoned foods and sauces Fried foods Pickles Olives [facility] 1999 - August 25, 2019, [facility]. This handout is for informational purposes only. Talk with your doctor or healthcare team if you have any questions about your care. For more health information, call the [employer]BE Security Master for [employer] Information at [phone] or email: [email or web address]. * Discharge Instr - Notify* Chaparrita Parker RN - 06/06/2021 9:14 AM EDT For Concerns During Weekend or Evening Hours: -If you have questions or concerns call and ask the roll table operator to page the neurosurgical nurse practitioner operator receptionist. Reminder: [employer] messaging goes unmonitored during evenings and weekends. Any concerns or questions during this time, please call using instructions above. Clinic Office Main Number: [phone] NOTIFY PHYSICIAN: SYMPTOMS WOUND INFECTION - Increase [...] -Passing bright red blood from your rectum * Discharge Instr - Wound Care* Chaparrita Parker RN - 06/06/2021 9:15 AM [...] with dry sterile dressing secured with tape. * Discharge Instr - DME* Chaparrita Parker RN - 06/06/2021 11:54 AM EDT [employer] will provide your wound care supplies [facility] Direct Line: [phone] documented in this [facility]04-[facility] Note* Nursing Notes - Belkis Sanders RN - 06/05/2021 5:17 PM EDT 06/05/21 1635 Referral Information Arrived From home or self-care Readmission Information Was patient readmitted within 30 Days? No Information Source Information Source patient ;spouse Information Source Name Patient Jc and spouse Flaca Information Source Number in person verified contacts Outpatient Providers Outpatient Providers Updated In IHIS Yes Contact Information Hair Spinning Machine Operator/SW Added to Care Team Yes This Parquet Floor Layer'S Helper is Primary Hair Spinning Machine Operator/SW No Hair Spinning Machine Operator Name Belkis Chinyere PCRM for Chaparrita PettyCHRISTY Social Work Contact Name AGNES Stephens Living [...] and children and was independent with ADL's SORT LINE WORKER Can Support Person Meet The Care Needs Of The Patient? Yes Employment/Financial Employed? 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 Employment/Financial Concerns no Source Of Income salary/wages Financial Concerns none Insurance Medical Insurance Verified Yes Contacted Financial Assistance/Updated Medical Team Yes Prescription Coverage Yes Pharmacy updated in IHIS Yes Initial Discharge Planning Home Care Services (SORT LINE WORKER) No Anticipated discharge disposition Home Anticipated Services at Discharge Outpatient follow up Anticipated Changes Related to Illness none Current Discharge Risk high risk diagnoses (i.e., CHF, Stroke, DM, chronic pain, abdominal pain, nausea and vomiting) Transportation Available car;family or friend will provide Discharge Planning Comments Plan for dsicharge homw. to provide trasport. Home Care Services (SORT LINE WORKER) Additional Home Care Services (SORT LINE WORKER) no Assessment/Concerns to be Addressed Concerns To Be Addressed denies needs/concerns at this time PCRM Initial Assessment Met with patient and spouse at bedside to complete the initial assessment. Explained role and function of PCRM in multidisciplinary team. Contact number provided for questions. Demographic information reviewed with patient/family and confirmed as correct. Reason for Admission: Jc Dunaway is a 55 y.o. male 1 Day Post-Op from ileostomy reversal Estimated length of stay: 3-5 days Advanced directives Patient does not have Advanced Directives on File Lines/Drains/Tubes PIV/ Reyna/ incision Initial PCRM Discharge Planning Patient lives in a 2 story farm house with 2-3 kash. Home has bath on 1st floor and Bedroom on 2nd floor. Patient was independent with ADL's SORT LINE WORKER. Patient has not had any HHC/SNF/DME SORT LINE WORKER. Final plan will be determined closer to discharge, pending therapy and medical team recommendations. Patient/family verbalized understanding and agreement with the plan of care. Patient/family have no questions at this time. PCRM will continue to follow patient with multidisciplinary team for ongoing assessment of needs and for discharge planning. Medical team updated. Belkis BELL RN PCRM [facility] Patient Care Family Medicine Chair Ph: [phone] For evening and weekend discharge assistance please page the operator receptionist PCRM at [phone]. [facility]04-[facility]* Nursing Notes - Crissy Pedro RN - 06/05/2021 9:25 AM EDT This RN paged the team: Patient was bladder scanned with result of 418 mls. Pt unable to void. [facility]04-[facility]* Plan of Care - Liss Anderson RN - 06/05/2021 4:27 AM EDT Pt rested well overnight. Pt was very [...] slow down as the night went on. [facility]04-05-[facility]* Op Note - Miroslava Joiner MD - 06/04/2021 9:00 PM EDT Pre-op Diagnosis: Loop ileostomy after total proctocolectomy for ulcerative colitis with cancer. Post-op Diagnosis: Same Procedure: Loop ileostomy closure Staff: Miroslava Joiner MD, who performed the procedure without resident assistance Anesthesia: General endotracheal EBL: Less than 50 cc Complication: none apparent Counts: Reported as correct. No foreign bodies identified on inspection Statement of Medical Necessity Mr. Dunaway is a 55 y.o. male with a history of ulcerative colitis. When I met him he had been diagnosed with a sigmoid cancer. His final pathology after total proctocolectomy showed two cancers bothof which were early stage. I performed a pouchoscopy which was normal and he is now a few months out from total proctocolectomy and J-pouch and presents for ileostomy closure.. The risks, benefits and alternatives of loop ileostomy closure were explained to him and he desiredto proceed. Operation After informed consent was obtained, Mr. Dunaway was brought to the operating room. he [...] with the SUGEY 80 stapler. The intervening mesenterywas taken between clamps and ties. A [id number] functional end-to-end anastomosis was created. A junctional [...] dressings and taken to the recovery room. [facility]04-05-[facility] Note* Nursing Notes - Liss Anderson RN - 06/04/2021 7:36 PM EDT Paged MD Antonio - [phone] pt with some new serosang drainage on take down site noted during shift change. Also do you want pt to get lovenox tonight or hold since he just came up from PACU? Thanks [phone] Received call back, plan to continue to monitor drainage and hold lovenox for tonight. 2100: paged MD Antonio - [address] pt still unable to urinate. Bladder scan of 240ml. Thanks [phone] Plan to give pt another hour to [...] means he hasn't urinated since before OR, ifthat. I then confirmed that he did not [...] Antonio, no additional orders at this time. [facility]04-05-[facility] Note* Nursing Notes - Aislinn Liao RN - 06/04/2021 4:52 PM EDT 1645- Pt arrived to [address] without any complications. Oriented pt to staff, room and equipment. Call light left within reach. [facility]* Brief Op Note - Miroslava Joiner MD - 06/04/2021 3:19 PM EDT Jc Dunaway ([id number]) PRE OPERATIVE DIAGNOSIS Ileostomy dysfunction [K94.13] POST OPERATIVE DIAGNOSIS Post-Op Diagnosis Codes: * Ileostomy dysfunction [K94.13] PROCEDURE PERFORMED Procedure(s) (LRB): LOOP ILEOSTOMY CLOSURE (N/A) PRIMARY CLOSURE No INTRAOPERATIVE FINDINGS No significant abnormalities SURGEON Surgeon(s) and Role: * iMroslava Joiner MD - Primary ANESTHESIOLOGIST Anesthesiologist: Neto Mcnally MD; Zachary Weiss MD SHIPPER RECEIVER: Perlita Lemon APRN-SHIPPER RECEIVER Puppy Sitter Assisting: James Boykin MD SURGICAL STAFF Director Loan: Genesis Young RN; Ynes Bingham RN Manager Of Community Relations: Kinjal Ortiz COMPLICATIONS None ESTIMATED BLOOD LOSS Minimal SPECIMENS be;pw ID Type Source Tests Collected by Time Destination 1 : Ileostomy Permanent SURG PATH SURG PATH REQUEST Miroslava Joiner MD 06/04/2021 [id number] Miroslava Joiner MD June 04, 2021 3:19 PM [facility] History and physical note* Miroslava Joiner MD - 06/04/2021 1:19 PM EDT HPI: 55 y.o. yo male here for ileostomy closure New symptoms: none Past Medical History: Diagnosis Date Colon cancer 10/2020 Ulcerative colitis diagnosed in the 80s- no surgery Past Surgical History: Procedure Laterality Date ENDOSCOPY SMALL INTESTINE POUCH DIAGNOSTIC N/A 04/22/2021 Laterality: N/A; Surgeon: Miroslava Joiner MD; Location: [facility] ENDOSCOPY COLOPROCTECTOMY TOTAL W/ LOOP ILEOSTOMY OR CREATION ILEAL RESERVOIR LAPAROSCOPIC N/A 02/12/2021 Laterality: N/A; Surgeon: Miroslava Joiner MD; Location: [facility] MAIN OR SIGMOIDOSCOPY DIAGNOSTIC N/A 02/04/2021 Laterality: N/A; Surgeon: Miroslava Joiner MD; Location: [facility] ENDOSCOPY HIP REPLACEMENT Left 2005 COLONOSCOPY DIAGNOSTIC [...] loop stoma closure P/ Ileostomy closure today [facility]04-[facility] History and physical note* Miroslava Joiner MD - 06/04/2021 1:19 PM EDT HPI: 55 y.o. yo male here for ileostomy closure New symptoms: none Past Medical History: Diagnosis Date Colon cancer 10/2020 Ulcerative colitis diagnosed in the 80s- no surgery Past Surgical History: Procedure Laterality Date ENDOSCOPY SMALL INTESTINE POUCH DIAGNOSTIC N/A 04/22/2021 Laterality: N/A; Surgeon: Miroslava Joiner MD; Location: [facility] ENDOSCOPY COLOPROCTECTOMY TOTAL W/ LOOP ILEOSTOMY OR CREATION ILEAL RESERVOIR LAPAROSCOPIC N/A 02/12/2021 Laterality: N/A; Surgeon: Miroslava Joiner MD; Location: [facility] MAIN OR SIGMOIDOSCOPY DIAGNOSTIC N/A 02/04/2021 Laterality: N/A; Surgeon: Miroslava Joiner MD; Location: [facility] ENDOSCOPY HIP REPLACEMENT Left 2005 COLONOSCOPY DIAGNOSTIC [...] P/ Ileostomy closure today documented in [facility]11-[facility]-2021 NoteAttempted calling patient for a second time to schedule a consultation with Dr. Marylin Albert for a malignant neoplasm of colon. Patient referred by [facility]. Previously attempted contacting patient on January 01, 2021 at 9:20 am to schedule an appointment. He did not answer but I was able to leave him a message to contact our office at [phone] to schedule a consultation. Patient's records have been scanned into [employer] for review. I will need patient's insurance information as it was not included and I will need to make sure that we are in-network with his insurance company prior to scheduling consultation. Tessa Rascon [place] to Dr. Marylin Albert [facility]* Diagnosis Onset Date Resolution Status Cancer of sigmoid colon acut e Iron deficiency anemia due to chronic blood loss chronic Ulcerative colitis [facility] Work Phone: Evaluation note* Diagnosis Ileostomy dysfunction- Primary Mechanical complication of colostomy and enterostomy [facility]* Diagnosis Carcinoma of sigmoid colon- Primary Malignant neoplasm of sigmoid colon [facility]* Diagnosis Ulcerative pancolitis with other complication- Primary Anal pain Anal or rectal pain Diarrhea due to malabsorption Ulcerative pancolitis with other complication Anal pain Anal or rectal pain [facility]* Diagnosis Ulcerative pancolitis with other complication Anal pain Anal or rectal pain [facility]* Diagnosis History of ulcerative colitis Personal history of other diseases of digestive system [facility]* Diagnosis Onset Date Resolution Status Cancer of sigmoid colon 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 Iron deficiency anemia due to chronic blood loss chronic Transaminitis chronic Ulcerative colitis [facility] Work Phone: Evaluation note* Diagnosis PSC (primary sclerosing cholangitis)- Primary Cholangitis documented in this encounter [facility] note* Diagnosis PSC (primary sclerosing cholangitis) Cholangitis documented in this encounter [facility] note* Diagnosis PSC (primary sclerosing cholangitis) Cholangitis documented in this encounter [facility] note* Diagnosis Pre-transplant evaluation for liver transplant- Primary documented in this encounter [facility] note* Diagnosis Pre-transplant evaluation for liver transplant- Primary PSC (primary sclerosing cholangitis) Cholangitis Primary sclerosing cholangitis Cholangitis Preoperative evaluation to rule out surgical contraindication Other specified pre-operative examination High risk surgery, pre-operative cardiovascular examination Pre-operative cardiovascular examination documented in this encounter [facility] note* Diagnosis Primary sclerosing cholangitis Cholangitis Pre-transplant evaluation for liver transplant Preoperative evaluation to rule out surgical contraindication Other specified pre-operative examination documented in this encounter [facility] note* Diagnosis Primary sclerosing cholangitis Cholangitis Pre-transplant evaluation for liver transplant Preoperative evaluation to rule out surgical contraindication Other specified pre-operative examination High risk surgery, pre-operative cardiovascular examination Pre-operative cardiovascular examination documented in this encounter [facility] note* Diagnosis 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 Cirrhosis of liver without mention of alcohol Primary sclerosing cholangitis Cholangitis Pre-transplant evaluation for liver transplant Preoperative evaluation to rule out surgical contraindication Other specified pre-operative examination High risk surgery, pre-operative cardiovascular examination Pre-operative cardiovascular examination PSC (primary sclerosing cholangitis) Cholangitis Ileostomy dysfunction Mechanical complication of colostomy and enterostomy Cancer of sigmoid colon Malignant neoplasm of sigmoid colon documented in this encounter [facility] note* Diagnosis Primary sclerosing cholangitis Cholangitis Pre-transplant evaluation for liver transplant Preoperative evaluation to rule out surgical contraindication Other specified pre-operative examination documented in this encounter [facility] note* Diagnosis Abnormal stress test- Primary Other nonspecific abnormal cardiovascular system function study PSC (primary sclerosing cholangitis) Cholangitis Ulcerative colitis with complication, unspecified location Hepatic cirrhosis, unspecified hepatic cirrhosis type, unspecified whether ascites present Pre-transplant evaluation for liver transplant PSC (primary sclerosing cholangitis) Cholangitis Ulcerative colitis with complication, unspecified location Hepatic cirrhosis, unspecified hepatic cirrhosis type, unspecified whether ascites present Pre-transplant evaluation for liver transplant Abnormal stress test Other nonspecific abnormal cardiovascular system function study PSC (primary sclerosing cholangitis) Cholangitis Ulcerative colitis with complication, unspecified location Hepatic cirrhosis, unspecified hepatic cirrhosis type, unspecified whether ascites present Pre-transplant evaluation for liver transplant Abnormal stress test Other nonspecific abnormal cardiovascular system function study [facility] Diagnosis PSC (primary sclerosing cholangitis) Cholangitis Ulcerative colitis with complication, unspecified location Hepatic cirrhosis, unspecified hepatic cirrhosis type, unspecified whether ascites present Pre-transplant evaluation for liver transplant Abnormal stress test Other nonspecific abnormal cardiovascular system function study PSC (primary sclerosing cholangitis) Cholangitis Ulcerative colitis with complication, unspecified location Hepatic cirrhosis, unspecified hepatic cirrhosis type, unspecified whether ascites present Pre-transplant evaluation for liver transplant Abnormal stress test Other nonspecific abnormal cardiovascular system function study [facility] Diagnosis Ulcerative pancolitis with complication [facility]* Diagnosis Liver replaced by transplant- Primary Aftercare following organ transplant Immunosuppressed status Unspecified disorder of immune mechanism High risk medication use Encounter for long-term (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 of other medications [facility] Diagnosis Encounter for long-term (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 of antibiotics- Primary S/P liver transplant Liver replaced by transplant Immunocompromised Unspecified immunity deficiency At risk for infection transmitted from donor Biloma Other specified disorder of peritoneum 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 [facility] Diagnosis Liver replaced by transplant- Primary [facility] Diagnosis Liver replaced by transplant- Primary [facility] Diagnosis S/P liver transplant- Primary Liver replaced by transplant [facility]* Diagnosis Diarrhea, unspecified type- Primary [facility]* Diagnosis Fever, unspecified fever cause- Primary Abnormal laboratory test Other abnormal clinical finding S/P liver transplant Liver replaced by transplant Immunocompromised Unspecified immunity deficiency [facility]* Diagnosis Ulcerative pancolitis with other complication- Primary PSC (primary sclerosing cholangitis) Cholangitis Cancer of sigmoid colon Malignant neoplasm of sigmoid colon S/P liver transplant Liver replaced by transplant [facility] Liver replaced by transplant Aftercare following organ transplant Long-term use of high-risk medication Therapeutic drug monitoring Encounter for therapeutic drug monitoring [facility] Diagnosis Ulcerative pancolitis with other complication [facility] Diagnosis Elevated alkaline phosphatase level- Primary Other nonspecific abnormal serum enzyme levels Infection Unspecified infectious and parasitic diseases Esophageal candidiasis Candidiasis of the esophagus Infection Unspecified infectious and parasitic diseases Ulcerative pancolitis with complication Anal pain Anal or rectal pain [facility] Attachments The following attachments cannot be sent through Care Everywhere. * Cardiac Cath Care After - Wrist Site ([facility]) (Lat[place]ian) [facility] instructionsAdditional Instructions Considering your decision to leave against medical advice, you need to follow-up with your transplant specialist as well as his primary care physician and GI. I will send him for a repeat CBC to be performed tomorrow. I advised that you should return to the ED at any time if you change your mind or if your condition begins to change or worsen.[facility] Work Phone: Progress note Author Robe Zavala [facility] Note Date/Time December 21, 2024 1 1:28am [facility] [address] [place] [id number] OFFICE VISIT Date of Service: 12/21/24 1005 MR#: [id number] Acct: [id number] Name: EMELYNJC Rep #: [id number] : 1965 From: Robe benavides MD Age/Sex: 59/M [place] [facility] [place]: Signed HPI Subjective Date of Service 12/21/24 Chief Complaint Colon cancer and iron deficiency anemia History of Present Illness 59 YOM with Ulcerative Colitis > 30 years (since 1980s) who has not been on regular screening cor colon cancer who presented with ~ 10 Lb unexplained sedrick loss. 11/28/2020 Colonoscopy: Findings: ?? ? The perianal and digital rectal examinations were normal. ?? ? Inflammation characterized by erosions, erythema, linear erosions, loss ?? ? of vascularity, mucus, scarring and deep ulcerations was found in a ?? ? continuous and circumferential pattern from the anus to the hepatic ?? ? flexure. No sites were spared. This was severe, and when compared to ?? ? previous examinations, the findings are worsened. Biopsies were taken ?? ? with a cold forceps for histology. Verification of patient ?? ? identification for the specimen was done. Estimated blood loss was ?? ? minimal. ?? ? A frond-like/villous non-obstructing large mass was found in the distal ?? ? descending colon. The mass was partially circumferential (involving ?? ? two-thirds of the lumen circumference). The mass measured one cm in ?? ? length. No bleeding was present. This was biopsied with a cold forceps ?? ? for histology. Area was tattooed with an injection of 5 mL of Pippa ink. ?? ? The terminal ileum appeared normal. Impression:? - Pancolitis ulcerative colitis. Inflammation ? was found from the anus to the hepatic flexure. ? This was severe, worsened compared to previous ? examinations. Biopsied. ? - Rule out malignancy, tumor in the distal ? descending colon. Biopsied. Tattooed. ? - The examined portion of the ileum was normal. ? - Diffuse severe inflammation was found in the ? rectum secondary to pancolitis. Biopsied. Pathology: MICROSCOPIC DIAGNOSISA.? Duodenum, biopsy:Mild Samy?s gland hyperplasia.B.? Distal esophagus, biopsy:Gastroesophageal junctional mucosa with chronic inflammation.No evidence of goblet cell metaplasia.See comment. C.? Colon, random biopsy:Chronic active colitis pattern of injury with low and focal high-grade glandular dysplasia.D.? Sigmoid colon mass, biopsy:Invasive adenocarcinoma.See comment.E.? Rectosigmoid colon, biopsy:Tubular adenoma MLH-1 (M1)positiveMSH2? (25D12)positiveMSH6? (44)positivePMS2? ([id number])positiveKi-67? (30-9)? positive (75%)P53? (DO-7)? ? ? positiveCOX-2? (SP21) ? ? ? positiveThese tests were developed and their performance characteristics determined by [facility].? They may not have been cleared or approved by the U.S. Food and Drug Administration.? The FDA has determined that such clearance or approval is not necessary.The above immunohistochemical/dualISH markers are ordered and reviewed by the Pathologist. INTERPRETATION:D.? Sigmoid mass, biopsy:Adenocarcinoma.Result of Microsatellite Instability Study:Negative (no loss of mismatch protein; no microsatellite instability detected).AM:robbie? 12/03/2020 12/28/2020 CT Chest, abdomen and pelvis: IMPRESSION: Diffuse circumferential wall thickening of the colon with the patient''s history of ulcerative colitis.? Masslike lesion in the cecum and proximal ascending colon.? The patient is known to have a neoplastic process at that site. February 12, 2021:?Laparoscopic total proctocolectomy with ileal pouch creation and stapled IPAA, diverting loop ileostomy and flexible sigmoidoscopy. February 12, 2021 pathology:?2 invasive adenocarcinomas, moderately differentiated, invading submucosa, background colonic mucosa with marked ulcerative colitis and multifocal low-grade dysplasia, negative margins, inflammation extends to the distal margin, fibrotic appendix, unremarkable smallbowel, 118 6 lymph nodes dissected all negative for metastatic cancer.? Mismatchrepair protein intact. June 04, 2021:?Loop ileostomy closure. September 30, 2022 CT chest abdomen and pelvis: Obtained because of abnormal LFTs. FINDINGS: CHEST Stable scarring at the lung apices likely worse on the right side. There is no demonstrated pleural abnormality. Normal heart and pericardium. No coronary artery calcification. Normal mediastinum. Normal hilar regions. Normal unenhanced pulmonary arteries. Normal aorta arch and descending thoracic aorta. There are degenerative changes of the thoracic spine. There is no demonstrated abnormality of the visualized upper abdomen. ABDOMEN The visualized lung bases are unremarkable. The visualized portions of the heart are within normal limits. Normal liver. Normal gallbladder and extrahepatic biliary system. Normal spleen. Normal pancreas. Normal bilateral adrenal glands. Normal right kidney. Normal left kidney. Normal visualized stomach. The previously seen right-sided ileostomy is not visualized at this time. The patient is status post ileal rectal anastomosis. There is non-visualization of the appendix. There is scattered atherosclerotic calcification of the abdominal aorta, without a demonstrated aneurysm. Normal inferior vena cava. Normal retroperitoneum. Normal abdominal wall. There are degenerative changes of the visualized lumbar spine. PELVIS Normal urinary bladder. Normal visualized small intestine. Normal visualized colon. There is no pelvic fluid. There is no pelvic lymphadenopathy or mass lesion. Normal visualized pelvic arteries. IMPRESSION: Status post ileorectal anastomosis. The previously seen right lower quadrant ileostomy is not seen at this time. [facility] Medical History Hemorrhoids History of steroid therapy Low iron Easy bruising History of stress test Elevated LFTs Iron deficiency anemia due to chronic blood loss History of colon cancer Injury of head and neck Non-smoker Hx of fracture of left hip Weight loss Ulcerative colitis Surgical History Liver transplant status History of esophagogastroduodenoscopy (EGD) History of ileostomy History of colon resection Hx of colonoscopy Social History household members: spouse Smoking Status: Never smoker second hand exposure: No details: very rarely substance use type: does not use cruz/nondenominational: Restoration seatbelt use: always do you feel safe at home: Yes ROS Constitutional Constitutional: Reports fatigue; Denies anorexia or weight loss Eyes Eyes: Reports systems reviewed and no addt'l complaints, except as documented ENT HEENT: Reports systems reviewed and no addt'l complaints, except as documented; Denies bleeding gums or epistaxis Cardiovascular Cardiovascular: Reports systems reviewed and no addt'l complaints, except as documented Respiratory/Chest Respiratory/Chest: Reports systems reviewed and no addt'l complaints, except as documented Gastrointestinal Gastrointestinal: Reports hematochezia and other Details: Chronic rectal bleeding ; Denies change in bowel habits Genitourinary Genitourinary: Reports systems reviewed and no addt'l complaints, except as documented; Denies hematuria Musculoskeletal Musculoskeletal: Reports systems reviewed and no addt'l complaints, except as documented Integumentary Integumentary: Reports systems reviewed and no addt'l complaints, except as documented; Denies bleeding lesions Neurologic Neurologic: Reports systems reviewed and no addt'l complaints, except as documented Psychiatric Psychiatric: Reports systems reviewed and no addt'l complaints, except as documented Endocrine Endocrinology: Reports systems reviewed and no addt'l complaints, except as documented Hematologic/Lymphatic Hematologic/Lymphatic: Reports anemia; Denies easy bruising Intake Vital Signs 08/17/24 09:06 12/21/24 09:07 12/21/24 10:06 12/21/24 10:13 Height 5 ft 6 in 5 ft 6 in 5 ft 6 in Weight: 45.359 kg 45.019 kg BMI 16.0 BP 105/61 Blood Pressure Location Lt brachial Position Sitting Respiration 18 Pulse 84 Pulse Source Monitor Temp 98.9 F Temperature Source Temporal Artery Pulse Oximetry (%) 97 Oxygen Delivery Method room air Intake Is patient in pain?: No Allergies No Known Allergies Allergy (Verified 12/21/24 10:11) Medications ?Medication ?Instructions ?Recorded ?Confirmed ?Type ursodiol 250 mg tablet 250 mg PO BID #60 TABLETS 12/21/24 Rx aspirin 81 mg chewable tablet 1 tab PO QDAY 08/17/24 1 History calcium 600 mg (as 1 tab PO QDAY 08/17/2412/21 History carbonate)-vitamin D3 10 mcg (400 unit) tablet calcium polycarbophil 625 mg tablet 625 mg PO QDAY 12/21/24 History doxycycline monohydrate 100 mg 100 mg PO BID 08/17/24 12/21/24 History capsule entecavir 0.5 mg tablet 0.5 mg PO QDAY 08/17/2412/01 History glycerin-witch kentrell 12.5 %-50 % 1 pad topical 4XD PRN hemorrhoids 08/17/24 12/21/24 History topical pads loperamide 2 mg capsule 2 mg PO Q6H PRN loose stool 08/17/24 12/21/24 History (Anti-Diarrheal (loperamide)) mycophenolate mofetil 250 mg 500 mg PO BID 08/17/24 History capsule prednisone 5 mg tablet 5 mg PO QDAY 08/17/24 History sulfamethoxazole 800 1 tab PO QDAY 08/17/2412/21 History mg-trimethoprim 160 mg tablet tacrolimus 1 mg capsule, 3 mg PO Q12H 08/17/24 History immediate-release valganciclovir 450 mg tablet 450 mg PO Q12H 08/17/24 1 History Have you fallen in the past year?: No Central Venous Access Central Venous Access: No Laboratory Tests 12/07/20 12/31/20 02/18/21 11:04 12:35 07:16 WBC 10.3 Hgb 11.0 L 9.2 L MCV 86.0 Plt Count 682 H Iron Saturation 6.2 L Ferritin 8 L Total Bilirubin 0.30 0.90 Direct Bilirubin AST 54 H ALT 38 Alkaline Phosphatase 581 H Carcinoembryonic Ag 2.4 Vitamin B12 882 03/13/21 06/17/21 09/10/21 11:55 15:03 15:00 WBC 6.5 Hgb 8.8 L 11.9 L 11.9 L MCV Plt Count Iron Saturation 9.5 L 6.2 L 15.8 Ferritin 8 L 561 H 73 Total Bilirubin 0.60 Direct Bilirubin AST ALT Alkaline Phosphatase Carcinoembryonic Ag 2.0 1.4 2.9 Vitamin B12 663 12/13/21 03/19/22 06/10/22 16:00 09:20 11:25 WBC Hgb 11.5 L 12.1 L 12.6 L MCV Plt Count Iron Saturation 36.8 10.4 L 96.9 H Ferritin 37 22 L 689 H Total Bilirubin Direct Bilirubin AST ALT Alkaline Phosphatase Carcinoembryonic Ag 2.8 3.4 3.8 Vitamin B12 561 09/09/22 10/07/22 01/06/23 15:48 13:25 13:39 WBC Hgb 10.7 L 11.7 L MCV Plt Count Iron Saturation 31.5 26.8 Ferritin 315 163 Total Bilirubin 2.80 H 2.00 H Direct Bilirubin 1.58 H AST 115 H ALT 94 H Alkaline Phosphatase 814 H Carcinoembryonic Ag 3.5 3.1 Vitamin B12 03/31/23 05/14/2324 11:43 14:07 09:32 WBC Hgb 11.1 L 11.3 L 12.7 L MCV Plt Count Iron Saturation 24.8 34.8 Ferritin 99 58 105 Total Bilirubin Direct Bilirubin AST ALT Alkaline Phosphatase Carcinoembryonic Ag 2.9 3.1 3.6 Vitamin B12 721 11/18/23 02/11/24 04/27/24 17:01 14:40 17:08 WBC Hgb 12.2 L 12.8 L MCV Plt Count Iron Saturation 23.8 Ferritin 92 Total Bilirubin Direct Bilirubin AST ALT Alkaline Phosphatase Carcinoembryonic Ag 3.3 Vitamin B12 06/30/24 08/11/24 08/15/24 09:04 09:03 08:49 WBC Hgb 11.1 L 10.7 L MCV Plt Count Iron Saturation 18.0 Ferritin 226 Total Bilirubin Direct Bilirubin AST ALT Alkaline Phosphatase Carcinoembryonic Ag 1.7 Vitamin B12 1699 H 09/19/24 11/30/24 12/07/24 08:52 09:20 10:08 WBC Hgb 9.4 L 7.3 L MCV Plt Count Iron Saturation Ferritin 32 L Total Bilirubin Direct Bilirubin AST ALT Alkaline Phosphatase Carcinoembryonic Ag 1.6 Vitamin B12 12/21/24 09:00 WBC Hgb 5.8 L* MCV Plt Count Iron Saturation Ferritin Total Bilirubin Direct Bilirubin AST ALT Alkaline Phosphatase Carcinoembryonic Ag Vitamin B12 Exam Physical Exam Narrative ECOG 1 Const alert and oriented x3 General Appearance: frail Nutritional Appearance: thin Coding Level of Care Code Off vis,est,level 3 Exam Problem Focused Diagnoses Cancer of sigmoid colon C18.7 Iron deficiency anemia due to chronic blood loss D50.0 Assessment and Plan Assessment and Plan (1) Cancer of sigmoid colon: Status: Chronic (2) Iron deficiency anemia due to chronic blood loss: Status: Chronic Plan 59 YOM with 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 Patient is status post [facility] by[facility]. Cancer stage II with no yakov metastases. He's a normocytic anemia and intermittent thrombocytosis. Anemia combination ofiron deficiency due to chronic GI bleed, and chronic inflammatory disease . Chronic intermittent thrombocytosis is reactive to iron deficiency and resolveswith correction of iron deficiency. Chronic comorbid conditions: Status post liver transplant (April 2024 at [facility], chronic diarrhea and rectal bleeding post proctocolectomy. Plan: 1-colon cancer: Continue surveillance. Follow-up every 4 months (4th year of surveillance) with H&P and CEA measurement. Follow-up colonoscopy at [facility]. 2-For iron deficiency anemia advised IV iron rather than oral iron and lieu of the extensive bowel resection on an as-needed basis guided by blood work. With recurrent iron deficiency November 2024 he who will receive another IV loading 3-he has no evidence for B12 deficiency at present but he is at risk for, will be monitored on an annual basis. Robe Zavala MD International Trade Teacher, [facility] Divisions of Medical Oncology & Hematology Department of Internal Medicine [place] [address] This note was generated using a voice recognition system software. Although itwas reviewed by the author prior to finalization, it may still contain incorrectwords, spelling, and punctuation that were not noted when reviewing prior to saving. If a clinically significant typo or inaccurately typed phrase is noted, please notify the author. Clinical Quality Measures Falls Risk Screening/Assistive Devices Have you fallen in the past year?: No 12/21/24 1028 <Electronically signed by Robe romo MD> Date _ Robe Zavala MD Cosigner Signature: Date (if applicable) CC: Dr. Miroslava Joiner MD; Dr. Olive Valera MD ~ [facility] Work Phone: Reason for referral (narrative)* Radiology (Emergency) - New Request Specialty Diagnoses / Procedures Referred By Contac t Referred To Contact Procedures ECG Josué Mclain MD [address] [place] [phone] Phone: tel: fax: Referral ID Status Reason Start Date Expiration Date V isits Requested Visits Authorized [id number] New Request 04/14/2024 05/09/2025 1 1 [facility]No reason for referral information availableWSelect Medical [facility] [place] Work Phone: Reason for referral (narrative)* Unlisted Procedure Code (Routine) - New Request Specialty Diagnoses / Procedures Referred By Contac t Referred To Contact Procedures NO MECHANICAL DVT PROPHYLAXIS Sonya Treviño MD, MPH [address] [place] [address] Phone: tel: fax: Referral ID Status Reason Start Date Expiration Date V isits Requested Visits Authorized [id number] New Request 08/01/2024 08/26/2025 1 1 * Unlisted Procedure Code (Routine) - New Request Specialty Diagnoses / Procedures Referred By Contac t Referred To Contact Procedures LOW RISK - NO PHARMACOLOGICAL DVT PROPHYLAXIS Sonya Treviño MD, MPH [address] [place] [address] Phone: tel: fax: Referral ID Status Reason Start Date Expiration Date V isits Requested Visits Authorized [id number] New Request 08/01/2024 08/26/2025 1 1 * Unlisted Procedure Code (Routine) - New Request Specialty Diagnoses / Procedures Referred By Contac t Referred To Contact Procedures DVT/VTE RISK ASSESSMENT Sonya Treviño MD, MPH [address] [place] [address] Phone: tel: fax: Referral ID Status Reason Start Date Expiration Date V isits Requested Visits Authorized [id number] New Request 08/01/2024 08/26/2025 1 1 [facility] (Routine) Specialty Diagnoses / Procedures Referred By Contac t Referred To Contact [address] [place] [address] Referral ID Status Reason Start Date Expiration Date Visits Re quested Visits Authorized * (Routine) - New Request Specialty Diagnoses / Procedures Referred By Contac t Referred To Contact Procedures SURG PATH REQUEST Johnnie Lester MD [address] [place] [address] Phone: tel: fax: Referral ID Status Reason Start Date Expiration Date V isits Requested Visits Authorized [id number] New Request 12/28/2024 01/22/2026 1 1 * Radiology (Routine) - New Request Specialty Diagnoses / Procedures Referred By Contac t Referred To Contact Procedures US ABDOMEN LIVER TRANSPLANT DOPPLER US ABDOMEN LIVER TRANSPLANT DOPPLER Kat Gamino APRN-CNP [address] [address] Phone: tel: fax: Referral ID Status Reason Start Date Expiration Date V isits Requested Visits Authorized [id number] New Request 12/27/2024 01/21/2026 1 1 * Unlisted Procedure Code (Routine) - New Request Specialty Diagnoses / Procedures Referred By Contac t Referred To Contact Procedures PLATELET MONITORING PER PROTOCOL Sonya Treviño MD, MPH [address] [place] [phone] Phone: tel: fax: Referral ID Status Reason Start Date Expiration Date V isits Requested Visits Authorized [id number] New Request 12/26/2024 01/20/2026 1 1 * Unlisted Procedure Code (Routine) - New Request Specialty Diagnoses / Procedures Referred By Contac t Referred To Contact Procedures DVT/VTE RISK ASSESSMENT Sonya Treviño MD, MPH [address] [place] [address] Phone: tel: fax: Referral ID Status Reason Start Date Expiration Date V isits Requested Visits Authorized [id number] New Request 12/26/2024 01/20/2026 1 1 * (Routine) Specialty Diagnoses / Procedures Referred By Contac t Referred To Contact [address] [phone] Referral ID Status Reason Start Date Expiration Date Visits Re quested Visits Authorized [facility] for visit Narrative* Auth/Cert Specialty Diagnoses / Procedures Referred By Contac t Referred To Contact Diagnoses Ileostomy dysfunction Ileostomy dysfunction [K94.13] Procedures PA CLOSE ENTEROSTOMY LOOP ILEOSTOMY CLOSURE Referral ID Status Reason Start Date Expiration Date Visits Re quested Visits Authorized [id number] 1 1 [facility] for visit Narrative* Auth/Cert Specialty Diagnoses / Procedures Referred By Contac t Referred To Contact Diagnoses Ulcerative pancolitis with other complication Anal pain Ulcerative pancolitis with other complication [K51.018] Anal pain [K62.89] Procedures PA SURG DIAGNOSTIC EXAM, ANORECTAL PA NDSC EVAL INTSTINAL POUCH DX W/COLLJ SPEC SPX EXAM UNDER ANESTHESIA ANORECTAL ENDOSCOPY SMALL INTESTINE POUCH DIAGNOSTIC Miroslava Joiner MD [address] [facility] [address] [place] [address] [facility] [address] [place] [address] Referral ID Status Reason Start Date Expiration Date Visits Re quested Visits Authorized [id number] 1 1 [facility] for visit Narrative* Auth/Cert (Routine) Specialty Diagnoses / Procedures Referred By Rima ortiz Referred To Contact Diagnoses PSC (primary sclerosing cholangitis) Ulcerative colitis with complication, unspecified location Hepatic cirrhosis, unspecified hepatic cirrhosis type, unspecified whether ascites present Pre-transplant evaluation for liver transplant Abnormal stress test PSC (primary sclerosing cholangitis) [K83.01] Ulcerative colitis with complication, unspecified location [K51.919] Hepatic cirrhosis, unspecified hepatic cirrhosis type, unspecified whether ascites present [K74.60] Pre-transplant evaluation for liver transplant [Z01.818] Abnormal stress test [R94.39] Procedures PA CATH PLMT L HRT & ARTS W/NJX & ANGIO IMG S&I CORONARY ANGIOGRAM WITH LEFT HEART CATH [facility] [address] [place] [address] [facility] [address] [place] [address] Referral ID Status Reason Start Date Expiration Date Visits Re quested Visits Authorized [id number] 1 1 [facility] for visit Narrative* Endoscopy (Urgent) - New Request Specialty Diagnoses / Procedures Referred By Rima ortiz Referred To Contact Diagnoses Ulcerative pancolitis with complication Procedures FLEXIBLE SIGMOIDOSCOPY PA SIGMOIDOSCOPY FLX W/BIOPSY SINGLE/MULTIPLE Babs Marley MD [address] [place] [address] Phone: tel: Referral ID Status Reason Start Date Expiration Date V isits Requested Visits Authorized [id number] New Request 05/03/2024 05/28/2025 1 1 [facility] for visit Narrative* Auth/Cert Specialty Diagnoses / Procedures [facility] Referred To Contact Diagnoses Sonya Aceves MD, MPH [address] [place] [address] Phone: tel: fax: [facility] [address] [place] [address] Referral ID Status Reason Start Date Expiration Date Visits Re quested Visits Authorized [id number] 1 1 [facility] for visit Narrative* MRI/CAT Scan (Routine) - Closed Specialty Diagnoses / Procedures Referred By Rima ortiz Referred To Contact Diagnoses Ulcerative pancolitis with other complication Procedures MRI PELVIS WITH AND WITHOUT CONTRAST CHG MRI PELVIS W/O & W/CONTRAST MATERIAL Maribel Brooks MD Phone: tel: fax: Referral ID Status Reason Start Date Expiration Date Visits Re quested Visits Authorized [id number] Closed 09/21/2024 10/16/2025 1 1 [facility] N[facility]* Auth/Cert Specialty Diagnoses / Procedures Referred By Rima ortiz Referred To Contact Diagnoses elevated alkaline phosphatase ERCP Anemia Sonya Treviño MD, MPH [address] [place] [address] Phone: tel: fax: [facility] [address] [place] [address] Referral ID Status Reason Start Date Expiration Date Visits Re quested Visits Authorized [id number] 1 1 [facility] Summary Purpose Family History No Family History Records FoundNo Family History Records FoundNo Family History Records FoundNo Family History Records Found Advance Directives Advance Directive Response Recorded Date/ Time Living Will No February 18 021 8:09am Power of Manager Small Business No February 18, 2021 8:09am Latest Code Status on File Code Status [...] Inactivated Comments Full Code 02/12/2021 6:09 PM Advance Directive Response Recorded Date/ Time Living Will No February 18 021 7:09am Power of Manager Small Business No February 18, 2021 7:09am Date Activated Date Inactivated Comments 02/12/2021 6:09 PM Date Activated Date Inactivated Comments 02/12/2021 6:09 PM Advance Directive Response Recorded Date/ Time Living Will No February 18 021 8:09am Power of Manager Small Business No February 18, 2021 8:09am Living Will No November 30 10:01am Power of Manager Small Business No November 30 024 10:01am Living Will No November 26, 2020 3:13pm Power of Manager Small Business No October 3:13pm Date Activated Date Inactivated Comments 05/25/2024 5:52 PM Date Activated Date Inactivated Comments 02/12/2021 6:09 PM 05/25/2024 5:52 PM Advance Directive Response Recorded Date/ Time Living Will No November 30 10:01am Do you have a Healthcare Power of Manager Small Business? No December 01, 2023 10:01am Date Activated Date Inactivated Comments 08/01/2024 8:40 PM Date Activated Date Inactivated Comments 05/25/2024 5:52 PM 08/01/2024 8:40 PM Date Activated Date Inactivated Comments 02/12/2021 6:09 PM 05/25/2024 5:52 PM Date Activated Date Inactivated Comments 08/01/2024 8:40 PM Date Activated Date Inactivated Comments 05/25/2024 5:52 PM 08/01/2024 8:40 PM Date Activated Date Inactivated Comments 02/12/2021 6:09 PM 05/25/2024 5:52 PM Advance Directive Response Recorded Date/ Time Living Will No November 26, 2020 2:13pm Do you have a Healthcare Power of Manager Small Business? No November 26, 2020 2:13pm Do you have a Healthcare Power of Manager Small Business? No December 21, 2024 11:58am Chief Complaint and Reason for Visit Chief Complaint PRE-OP abd pain F/U AFTER SURGERY AT [facility] 02-12-21 - NO LABS LABS TESTING Reason for Visit Cancer of sigmoid co [place]bell Iron deficiency anemia due to chronic blood loss Ulcerative colitis Chief Complaint TESTING LABS 3 MO - LABS PRIOR ONCOLOGY Reason for Visit Cancer of sigmoid co [place] Iron deficiency anemia due to chronic blood loss Ulcerative colitis Chief Complaint LABS 3 MO - LABS 1 WK PRIOR FU E ORDER Reason for Visit Cancer of sigmoid co [place] Iron deficiency anemia due to chronic blood loss Transaminitis Ulcerative colitis Chief Complaint Admit Date LABS February 11, 2024 11:00am 4 MO - LABS 1 WK PRIOR February 17 1:03pm 3 M FU April 11, 2024 2:40pm REDRAW April 28, 2024 4:58pm HEMORRHOIDS May 03, 2024 8:44 am Reason for Visit Admit Date Cancer of sigmoid colon February 17, 024 1:03pm Iron deficiency anemia due to chronic bl ood loss February 18, 2024 1:03pm Acquired dilation of common bile duct Fe bruary 2024 2:40pm Diarrhea April 11, 2024 2:40pm Weight loss April 11, 2024 2:40pm Elevated LFTs April 11, 2024 2:40pm Transaminitis April 11, 2024 2:40pm Ulcerative colitis April 11, 2024 2:40pm Colon cancer April 11, 2024 2:40pm Hemorrhoids May 03, 2024 8:44 am Chief Complaint Admit Date 3 M FU April 11, 2024 2:40pm REDRAW April 28, 2024 4:58pm HEMORRHOIDS May 03, 2024 8:44 am NEW S/O POST TRANSPLANT June 27, 2024 8:48am NEW S/O POST TRANSPLANT July 28, 2024 8 :38am Reason for Visit Admit Date Acquired dilation of common bile duct Fe bruary 2024 2:40pm Diarrhea April 11, 2024 2:40pm Weight loss April 11, 2024 2:40pm Elevated LFTs April 11, 2024 2:40pm Transaminitis April 11, 2024 2:40pm Ulcerative colitis April 11, 2024 2:40pm Colon cancer April 11, 2024 2:40pm Hemorrhoids May 03, 2024 8:44 am Chief Complaint Admit Date REDRAW April 28, 2024 4:58pm HEMORRHOIDS May 03, 2024 8:44 am NEW S/O POST TRANSPLANT June 27, 2024 8:48am NEW S/O POST TRANSPLANT July 28, 2024 8 :38am NEW S/O POST TRANSPLANT August 15, 2024 8:47am 6MO LABS PRIOR August 17, 2024 9:04 am Reason for Visit Admit Date Hemorrhoids May 03, 2024 8:44 am Cancer of sigmoid colon August 17, 2024 9:04am Iron deficiency anemia due to chronic bl ood loss August 17, 2024 9:04am Chief Complaint Admit Date HEMORRHOIDS May 03, 2024 8:44 am NEW S/O POST TRANSPLANT June 27, 2024 8:48am NEW S/O POST TRANSPLANT July 28, 2024 8 :38am 6MO LABS PRIOR August 17, 2024 9:04 am NEW S/O POST TRANSPLANT August 29, 2024 9:09am Chief Complaint Admit Date NEW S/O POST TRANSPLANT June 27, 2024 8:48am NEW S/O POST TRANSPLANT July 28, 2024 8 :38am 6MO LABS PRIOR August 17, 2024 9:04 am NEW S/O POST TRANSPLANT August 29, 2024 9:09am NEW S/O POST TRANSPLANT September 05, 2024 9 :30am S/O TRANSPLANT PT September 26, 2024 9:06 am Reason for Visit Admit Date Cancer of sigmoid colon August 17, 2024 9:04am Iron deficiency anemia due to chronic bl ood loss August 17, 2024 9:04am Chief Complaint Admit Date NEW S/O POST TRANSPLANT July 28, 2024 8 :38am 6MO LABS PRIOR August 17, 2024 9:04 am NEW S/O POST TRANSPLANT August 29, 2024 9:09am NEW S/O POST TRANSPLANT September 05, 2024 9 :30am S/O TRANSPLANT PT September 26, 2024 9:06 am NEW S/O POST TRANSPLANT October 24 9:25am Chief Complaint Admit Date 6MO LABS PRIOR August 17, 2024 9:04 am NEW S/O POST TRANSPLANT August 29, 2024 9:09am NEW S/O POST TRANSPLANT September 05, 2024 9 :30am S/O TRANSPLANT PT September 26, 2024 9:06 am NEW S/O POST TRANSPLANT October 24 9:25am NEW S/O POST TRANSPLANT November 23, 2024 9:29am NEW S/O POST TRANSPLANT November 30 9:17am Chief Complaint Admit Date S/O TRANSPLANT PT September 26, 2024 9:06 am NEW S/O POST TRANSPLANT October 24 9:25am NEW S/O POST TRANSPLANT November 23, 2024 9:29am NEW S/O POST TRANSPLANT December 14 9:40am 4 MO - LABS 1 WK PRIOR December 21 8:41am GI Bleed December 21, 2024 1 2:31pm Standing Order from Dr. Babs Marley January 04, 2025 8:43am LABS January 11, 2025 8:30am Standing Order from Dr. Babs Marley January 11, 2025 8:40am Reason for Visit Admit Date Cancer of sigmoid colon December 21 8:41am Iron deficiency anemia due to chronic bl ood loss December 21, 2024 8:41am Reason for Referral Specialty Diagnoses / Procedures Referred By Contac t Referred To Contact Procedures PLATELET MONITORING PER PROTOCOL Miroslava Joiner MD [address] [place] [address] Referral ID Status Reason Start Date Expiration Date V isits Requested Visits Authorized [id number] New Request 06/04/2021 06/29/2022 1 1 Specialty Diagnoses / Procedures Referred By Contac t Referred To Contact Procedures DVT/VTE RISK ASSESSMENT Miroslava Joiner MD [address] [place] [address] Referral ID Status Reason Start Date Expiration Date V isits Requested Visits Authorized [id number] New Request 06/04/2021 06/29/2022 1 1 Specialty Diagnoses / Procedures Referred By Contac t Referred To Contact Diagnoses History of ulcerative colitis Procedures POUCHOSCOPY PA NDSC EVAL INTSTINAL POUCH DX W/COLLJ SPEC SPX Kiah Rushing, WATER TREATMENT OPERATOR-FILTER TIP CATCHER [address] [facility] [address] [place] [address] Referral ID Status Reason Start Date Expiration Date V isits Requested Visits Authorized [id number] New Request 01/02/2023 01/27/2024 1 1 Specialty Diagnoses / Procedures Referred By Contac t Referred To Contact Diagnoses PSC (primary sclerosing cholangitis) Procedures MRI ABDOMEN WITH AND WITHOUT CONTRAST CHG MRI ABDOMEN W/O & W/CONTRAST MATERIAL Babs Marley MD [address] [facility] [address] [place] [address] Referral ID Status Reason Start Date Expiration Date V isits Requested Visits Authorized [id number] New Request 12/23/2023 01/16/2025 1 1 Referral ID Status Reason Start Date Expiration Date Visits Re quested Visits Authorized [id number] Closed 12/23/2023 01/16/2025 1 1 Specialty Diagnoses / Procedures Referred By Rima ortiz Referred To Contact Diagnoses PSC (primary sclerosing cholangitis) Procedures ERCP PA ERCP STENT PLACEMENT BILIARY/PANCREATIC DUCT Babs Marley MD [address] [place], [place] [id number] Referral ID Status Reason Start Date Expiration Date V isits Requested Visits Authorized [id number] New Request 01/25/2024 02/18/2025 1 1 Specialty Diagnoses / Procedures Referred By Rima ortiz Referred To Contact Diagnoses Primary sclerosing cholangitis Pre-transplant evaluation for liver transplant Preoperative evaluation to rule out surgical contraindication High risk surgery, pre-operative cardiovascular examination Procedures ECHOCARDIOGRAM PA ECHO TTHRC R-T 2D W/WOM-MODE COMPL SPEC&COLR D Babs Marley MD [address] [facility] [address] [place], [place] [id number] Referral ID Status Reason Start Date Expiration Date Visits Re quested Visits Authorized [id number] Closed 02/29/2024 03/25/2025 1 1 Specialty Diagnoses / Procedures Referred By Rima ortiz Referred To Contact Diagnoses Primary sclerosing cholangitis Pre-transplant evaluation for liver transplant Preoperative evaluation to rule out surgical contraindication Procedures EXERCISE-6 MIN. WALK Babs Marley MD [address] [facility] [address] [place] [address] Referral ID Status Reason Start Date Expiration Date V isits Requested Visits Authorized [id number] New Request 02/29/2024 03/25/2025 1 1 Specialty Diagnoses / Procedures Referred By Rima ortiz Referred To Contact Diagnoses Primary sclerosing cholangitis Pre-transplant evaluation for liver transplant Preoperative evaluation to rule out surgical contraindication Procedures PFT STANDARD Babs Marley MD [address] [facility] [address] [place] [address] Referral ID Status Reason Start Date Expiration Date V isits Requested Visits Authorized [id number] New Request 02/29/2024 03/25/2025 1 1 Specialty Diagnoses / Procedures Referred By Contac t Referred To Contact Diagnoses Primary sclerosing cholangitis Pre-transplant evaluation for liver transplant Preoperative evaluation to rule out surgical contraindication Procedures ARTERIAL BLOOD GAS, PULMONARY LAB OBTAINED Babs Marley MD [address] [place] [address] Referral ID Status Reason Start Date Expiration Date V isits Requested Visits Authorized [id number] New Request 02/29/2024 03/25/2025 1 1 Specialty Diagnoses / Procedures Referred By Contac t Referred To Contact Diagnoses PSC (primary sclerosing cholangitis) Ulcerative colitis with complication, unspecified location Hepatic cirrhosis, unspecified hepatic cirrhosis type, unspecified whether ascites present Pre-transplant evaluation for liver transplant Abnormal stress test Procedures CASE REQUEST - CARDIAC CATH Katia Shelton DO [address] [place] [address] Referral ID Status Reason Start Date Expiration Date V isits Requested Visits Authorized [id number] New Request 03/29/2024 04/23/2025 1 1 Additional Source Comments (unrecognized sect ion and content) No Status Records FoundNo Status Records FoundNo Status Records FoundNo Status Records Found INFORMATION SOURCE (unrecogn ized section and content) DATE CREATED AUTHOR 08/04/2020 [facility] DATE CREATED AUTHOR AUTHOR'S ORGANIZ ATION 04/10/2021 [facility] [employer] [facility] DATE CREATED AUTHOR AUTHOR'S ORGANIZ ATION 01/10/2025 [facility] DATE CREATED AUTHOR AUTHOR'S ORGANIZ ATION 01/12/2025 [facility] Goals (unrecognized section and content) Goals may be documented in a n alternate sectionGoals may be documented in an alternate sectionGoals may be documented in an alternate sectionGoals may be documented in an alternate sectionGoals may be documented in an alternate sectionGoals may be documented in an alternate sectionGoals may be documented in an alternate sectionGoals may be documented in an alternate sectionGoals may be documented in an alternate sectionGoals may be documented in an alternate sectionGoals may be documented in an alternate sectionGoals may be documented in an alternate sectionGoals may be documented in an alternate section Scheduled Active and Recently Administ ered Medications (unrecognized section and content) Medication Order 06/04/2021 06/05/2021 06/06/2021 acetaminophen (TYLENOL) tablet 975 mg (COMPLETED) 975 mg, Oral, ONCE, 1 dose, On Thu06/04/21 at 1300, Maximum dose of acetaminophen is 4000 mg from all sources in 24 hours., Pre-op/Pre-Proc 1331 (Given - Provider: Lidia Iniguez RN) acetaminophen (TYLENOL) tablet 975 mg 975 mg, Oral, EVERY 8 HOURS NON-STANDARD, First dose on Thu06/04/21 at 1645, Until Discontinued, Maximum dose of acetaminophen is 4000 mg from all sources in 24 hours., Post-op/Post-Proc 171 (Given - Provider: Aislinn Liao RN) 012 (Not Given - Provider: Liss Anderson RN - Reason: Patient/family refused - Comment: pt also still drowsy)1043 (Given - Provider: Crissy Pedro RN)1716 (Given - Provider: Crissy Pedro RN)2350 (Given - Provider: Columba Hernandez RN) 0801 (Given - Provider: Meena Zambrano, FAIZAN)1637 (Given - Provider: Meena Zambrano RN) enOXAParin (LOVENOX) injection 40 mg 40 mg, Subcutaneous, EVERY 24 HOURS, First dose on Thu06/04/21 at 1645, Until Discontinued, , Indications: DVT/PE prophylaxis, Post-op/Post-Proc 1946 (Hold - Provider: Liss Anderson RN - Reason: Order Parameters not met - Comment: per MD) 1539 (Given - Provider: Crissy Pedro RN) 1637 (Given - Provider: Meena Zambrano RN) gabapentin (NEURONTIN) capsule 100 mg 100 mg, Oral, EVERY 8 HOURS NON-STANDARD, First dose on Thu06/04/21 at 1645, Until Discontinued, Post-op/Post-Proc 171 (Given - Provider: Aislinn Liao RN) 0123 (Not Given - Provider: Liss Anderson RN - Reason: Patient/family refused - Comment: pt also still drowsy)1043 (Given - Provider: Crissy Pedro RN)1716 (Given - Provider: Crissy Pedro RN)2349 (Given - Provider: Columba Hernandez, RN) 0801 (Given - Provider: Meena Zambrano, RN)1637 (Given - Provider: Meena Zambrano RN) gabapentin (NEURONTIN) capsule 800 mg (COMPLETED) 800 mg, Oral, ONCE, 1 dose, On Thu06/04/21 at 1300, Pre-op/Pre-Proc 1331 (Given - Provider: Lidia Iniguez, RN) heparin injection 5,000 Units (COMPLETED) 5,000 Units, Subcutaneous, ONCE, 1 dose, On Thu06/04/21 at 1300, Pre op Nurse: Hold for patients receiving Intrathecal morphine or epidural. Consult with Anesthesia Team., Pre-op/Pre-Proc 1403 (Given - Provider: Lidia Iniguez, FAIZAN) ibuprofen (MOTRIN) tablet 600 mg 600 mg, Oral, EVERY 8 HOURS NON-STANDARD, First dose on Thu06/04/21 at 1645, Until Discontinued, Give with food, Post-op/Post-Proc 1712 (Given - Provider: Aislinn Liao RN) 0123 (Not Given - Provider: Liss Anderson RN - Reason: Patient/family refused - Comment: pt also still drowsy)1043 (Given - Provider: Crissy Pedro RN)1716 (Given - Provider: Crissy Pedro RN)2349 (Given - Provider: Columba Hernandez RN) 0801 (Given - Provider: Meena Zambrano RN)1637 (Given - Provider: Meena Zambrano RN) lactated ringers IV solution 1,000 mL (COMPLETED) 1,000 mL, Intravenous, ONCE, 1 dose, On Thu06/04/21 at 2345, Fluid Bolus 2329 ($$New Bag$$ - Provider: Liss Anderson RN)2332 (Rate/Dose Verify - Provider: Liss Anderson RN) 0014 (Rate/Dose Verify - Provider: Liss Anderson RN)0031 (Stopped - Provider: Liss Anderson RN) Lidocaine HCl Urethral/Mucosal 2 % jelly prefilled syringe (Urojet) PRSY 10 mL (COMPLETED) 10 mL, Urethral, ONCE, 1 dose, On Thu06/05/21 at 1045, Maximum 3 uro-jets/day Please place at bedside 1126 (Given - Provider: Chelsie Sanchez RN - Comment: used by [employer]) ondansetron 4mg/2ml (ZOFRAN) injection 4 mg () 4 mg, Intravenous, EVERY 6 HOURS NON-STANDARD, 4 doses, First dose on Thu06/04/21 at 1645, Last dose on Thu06/05/21 at 1045, Post-op/Post-Proc 1712 (Given - Provider: Aislinn Liao RN)2244 (Not Given - Provider: Liss Anderson RN - Reason: Patient/family refused) 0344 (Given - Provider: Liss Anderson, RN)1048 (Not Given - Provider: Crissy Pedro RN - Reason: Patient/family refused) potassium chloride (K-DUR) tablet ER 40 mEq (COMPLETED) 40 mEq, Oral, ONCE, 1 dose, On Danni 06/06/21 at 0545, Swallow tablets whole; do not crush, chew, or suck on tablet. Tablet may also be broken in half and each half swallowed separately. 0540 (Given - Provider: Columba Hernandez RN) scopolamine (TRANSDERM-SCOP) patch 1 patch 1 patch, Transdermal, ONCE, 1 dose, On Thu06/04/21 at 1300, Patient with history of motion sickness and/or previous postoperative nausea/vomiting., Pre-op/Pre-Proc 1337 (Patch Applied - Provider: Lidia Iniguez RN) 1820 (Due: Patch Removed - Provider: System Discharge - Comment: Time automatically adjusted from order being discontinued) sodium-potassium phosphate (K-PHOS NEUTRAL) tablet 500 mg (COMPLETED) 500 mg, Oral, ONCE, 1 dose, On Danni 06/06/21 at 0545 0540 (Given - Provider: Columba Hernandez RN) Continuous Medication Order 06/04/2021 06/05/2021 06/06/2021 lactated [...] CONTINUOUS, Starting on Thu06/04/21 at 1300, Until 06/04/21 at 1635, Pre-op/Pre-Proc 1333 ($$New Bag$$ - Provider: Lidia Iniguez RN)1900 (Stopped - Provider: Liss Anderson RN - Comment: Running KVO at start of my shift, unsure of actual stop time.) PRN Medication Order 06/04/2021 06/05/2021 06/06/2021 HYDROmorphone (DILAUDID) injection 0.2 mg (CANCELED) 0.2 mg, Intravenous, EVERY 5 MINUTES NEEDED, Starting on e 06/04/21 at 1520, Until Thu06/04/21 at 1635, Moderate [...] Oral, DAILY AT BEDTIME NEEDED, Starting on e 06/04/21 at 1643, Until Danni 06/06/21 at 2020, Insomnia, Post-op/Post-Proc morphine (PF) 200 mcg in sodium chloride (PF) 0.9 % 1 ml (total volume) intrathecal injection (COMPLETED) 200 mcg, Intrathecal, LEATHER LACER TO PROCEDURE, 1 dose, Starting on Thu06/04/21 [...] NEEDED, Starting on Thu06/05/21 at 1643, Until Danni 06/06/21 at 2020, Nausea / Vomiting, 2nd Line [...] 06/06/21 at 2020, Moderate Pain, Severe Pain, Use [...] 4 HOURS NEEDED, Starting on Thu06/06/21 at 2042, Until Thu06/06/21 at 2019, Moderate Pain, Severe Pain, Higher dose may [...] spray, Mouth/Throat, NEEDED, Starting on Thu06/04/21 at 164, Until Thu06/06/21 at 2019, Sore Throat, Patient may self-administer., Post-op/Post-Proc prochlorperazine (COMPAZINE) injection 10 mg(Linked Group 2) 10 mg, Intravenous, EVERY 6 HOURS NEEDED, Starting on Thu06/04/21 at 1642, Until Thu06/06/21 at 2019, Nausea / Vomiting, [...] 6 HOURS NEEDED, Starting on Thu06/04/21 at 164, Until Thu06/06/21 at 2019, Nausea / Vomiting, Refractory Nausea Vomiting, 1st line (if tolerating PO), Post-op/Post-Proc 1804 (See Alternative - Provider: Aislinn Liao RN) Linked Groups Order Group 1: oxyCODONE (ROXICODONE) tablet 5 mgJump to med 5 mg, Oral, EVERY 4 HOURS NEEDED, Starting on Thu06/06/21 at 2042, Until Danni 06/06/21 at 2019, Moderate Pain, Severe Pain
Use [...] Until Thu06/06/21 at 2020, Moderate Pain, Severe Pain
Higher dose may [...] Thu06/04/21 at 1643, Until Thu06/06/21 at 2020, Nausea / Vomiting, moderate nausea and vomiting, 1st line (if NOT tolerating PO)
For IV route: dilute dose with 10mL normal saline and give by slow IV push at a rate of 5mg/min. Maximum of 40mg/day.
Post-op/Post-Proc Or prochlorperazine (COMPAZINE) tablet 10 mgJump to med 10 mg, Oral, EVERY 6 HOURS NEEDED, Starting on Thu06/04/21 at 1643, Until Thu06/06/21 at 2020, Nausea / Vomiting, Refractory Nausea [...] 02/27/2022 02/28/2022 bupivacaine-epinephrine (MARCAINE;SENSORCAINE W/ EPI) 0.5% -[id number] injection (CANCELED) NEEDED, Starting on Thu02/28/22 at [...] experiencing nausea/vomiting after 1st line antiemetic, Recovery Scheduled Medication Order 04/12/2024 04/13/2024 04/14/2024 aspirin chewable tablet 324 mg (COMPLETED) 324 mg, Oral, ONCE, 1 dose, On Danni 04/14/24 at 1115, Patient to receive at least 30 minutes prior to procedure. Instruct patient to chew and not swallow., Pre-op/Pre-Proc 1131 (Given - Provid er: Mason Mcconnell RN) PRN Medication Order 04/12/2024 04/13/2024 04/14/2024 fentaNYL (SUBLIMAZE) injection (CANCELED) Administer over 2 Minutes, NEEDED, Starting on Danni 04/14/24 at 1253, Until Danni 04/14/24 at 1312, Intra-op/Intra-Proc 1253 (Given - Provid er: Meagan Valenzuela RN) Heparin injection (CANCELED) NEEDED, Starting on Danni 04/14/24 at 1259, Until Danni 04/14/24 at 1312, Intra-op/Intra-Proc 1259 (Given - Provid er: CHAN Soto - Comment: sheath) iodixanol (VISIPAQUE) injection 320 mg/mL for [facility] IR (CANCELED) NEEDED, Starting on Danni 04/14/24 at 1308, Until Danni 225 at 1312, Intra-op/Intra-Proc 1308 (Given - Provid er: Parul Garcia MD) Lidocaine 2 % injection (CANCELED) NEEDED, Starting on Danni 04/14/24 at 1257, Until Danni 04/14/24 at 1312, Intra-op/Intra-Proc 1257 (Given - Provid er: CHAN Soto - Comment: right wrist) midazolam (VERSED) injection (CANCELED) NEEDED, Starting on Thu04/14/24 at 1254, Until Danni 04/14/24 at 1312, Intra-op/Intra-Proc 1254 (Given - Provid er: Meagan Valenzuela RN) verapamil (ISOPTIN) injection (CANCELED) NEEDED, Starting on Thu04/14/24 at 1259, Until Thu04/14/24 at 1312, Intra-op/Intra-Proc 1259 (Given - Provid er: CHAN Soto - Comment: sheath) Scheduled Medication Order 08/07/2024 08/08/2024 08/09/2024 Doxycycline monohydrate (MONODOX) capsule 100 mg 100 mg, Oral, EVERY 12 HOURS, 28 doses, First dose on Thu08/09/24 at 2100, Last dose on Thu08/23/24 at 0900, Avoid antacid, iron, and sucralfate administration for 1 hour before and 2 hours after dose 1335 ([facility] Hold - Provider: Automatic Transfer - Reason: Transfer to a Procedural area)1523 ([facility] Unhold - Provider: Automatic Transfer) Entecavir (BARACLUDE) tablet 0.5 mg 0.5 mg, Oral, DAILY, First dose on Thu08/02/24 at 0900, Until Discontinued, Administer on an empty stomach. Swallow tablet whole; do not crush, split or chew. Contact pharmacy if alternate route or dose is needed. 0908 (Given - Provider: Abeba Valenzuela RN) 0809 (Given - Provider: Chayito Conley RN) 0821 (Given - Provider: Cheryl Haley RN)1335 ([facility] Hold - Provider: Automatic Transfer - Reason: Transfer to a Procedural area)1523 ([facility] Unhold - Provider: Automatic Transfer) Loperamide (IMODIUM) capsule 2 mg 2 mg, Oral, 3 times daily, First dose (after last modification) on Thu08/07/24 at 0900, Until Discontinued 0907 (Given - Provider: Abeba Valenzuela RN)1501 (Given - Provider: Abeba Valenzuela RN)2011 (Given - Provider: Nenita Che RN) 08 (Given - Provider: Chayito Conley RN)1520 (Given - Provider: Chayito Conley RN)1958 (Given - Provider: Hosea Manzo RN) 0821 (Given - Provider: Cherly Haley RN)1335 ([facility] Hold - Provider: Automatic Transfer - Reason: Transfer to a Procedural area)1500 (Automatically Held - Provider: Automatic Transfer)1523 ([facility] Unhold - Provider: Cheryl Haley RN) Magnesium sulfate 1 g in dextrose 5% 100 mL premix IVPB (COMPLETED)(Linked Group 1) 1 g, Intravenous, at 100 mL/hr, Administer over 60 Minutes, ONCE, 1 dose, On 08/07/24 at 0915 0905 ($$New Bag$$ - Provider: Abeba Valenzuela RN) Magnesium sulfate 1 g in dextrose 5% 100 mL premix IVPB (COMPLETED)(Linked Group 1) 1 g, Intravenous, at 100 mL/hr, Administer over 60 Minutes, ONCE, 1 dose, On 08/07/24 at 1015 1044 ($$New Bag$$ - Provider: Abeba Valenzuela RN) Mycophenolate mofetil (CELLCEPT) capsule 500 mg 500 mg, Oral, 2 TIMES DAILY (Solid Organ Transplant), First dose on Thu08/01/24 at 2130, Until Discontinued, ---MEDICATION EXPOSURE PRECAUTIONS--- Do not split, break, crush or open this medication. Contact pharmacy if altered route or dose is needed. 0907 (Given - Provider: Abeba Valenzuela RN)2011 (Given - Provider: Nenita Che RN) 0808 (Given - Provider: Chayito Conley RN)1958 (Given - Provider: Hosea Manzo RN) 0820 (Given - Provider: Cheryl Haley RN)1335 ([facility] Hold - Provider: Automatic Transfer - Reason: Transfer to a Procedural area)1523 ([facility] Unhold - Provider: Automatic Transfer) polycarbophil (FIBERCON) tablet 625 mg 625 mg, Oral, DAILY, First dose on 08/07/24 at 1000, Until Discontinued 1043 (Given - Provider: Abeba Valenzuela RN) 0809 (Given - Provider: Chayito Conley RN) 0820 (Given - Provider: Cheryl Haley RN)1335 ([facility] Hold - Provider: Automatic Transfer - Reason: Transfer to a Procedural area)1523 ([facility] Unhold - Provider: Automatic Transfer) predniSONE (DELTASONE) tablet 5 mg 5 mg, Oral, DAILY, First dose on Thu08/03/24 at 1430, Until Discontinued 09 (Given - Provider: Abeba Valenzuela RN) 0808 (Given - Provider: Chayito Conley, FAIZAN) 0820 (Given - Provider: Cheryl Haley RN)1335 ([facility] Hold - Provider: Automatic Transfer - Reason: Transfer to a Procedural area)1523 ([facility] Unhold - Provider: Automatic Transfer) Sulfamethoxazole-trimetho prim (BACTRIM DS) 800-160 MG per tablet 1 tablet 1 tablet, Oral, EVERY 24 HOURS, First dose on Thu08/02/24 at 0900, Until Discontinued 09 (Given - Provider: Abeba Valenzuela RN) 0809 (Given - Provider: Chayito Conley RN) 0820 (Given - Provider: Cheryl Haley RN)1335 ([facility] Hold - Provider: Automatic Transfer - Reason: Transfer to a Procedural area)1523 ([facility] Unhold - Provider: Automatic Transfer) Tacrolimus (PROGRAF) capsule 1 mg (COMPLETED) 1 mg, Oral, ONCE, 1 dose, On Thu08/07/24 at 1300, Do not split, break, crush, or open doses of this medication. Contact pharmacy if altered dose or route needed. Do not split, break, crush, or open doses of this medication. Contact pharmacy if altered dose or route needed. 1255 (Given - Provider: Abeba Valenzuela RN) Tacrolimus (PROGRAF) capsule 3 mg (CANCELED) 3 mg, Oral, EVERY 12 HOURS NON-STANDARD, First dose (after last modification) on 08/06/24 at 2000, Until Discontinued, ---MEDICATION EXPOSURE PRECAUTIONS--- Do not split, break, crush, or open doses of this medication. Contact pharmacy if altered dose or route needed. 09 (Given - Provider: Abeba Valenzuela RN) Tacrolimus (PROGRAF) capsule 3 mg (CANCELED) 3 mg, Oral, EVERY 24 HOURS, First dose on 08/07/24 at 2000, Until Discontinued, ---MEDICATION EXPOSURE PRECAUTIONS--- Do not split, break, crush, or open doses of this medication. Contact pharmacy if altered dose or route needed. 2011 (Given - Provider: Nenita Che RN) Tacrolimus (PROGRAF) capsule 4 mg (CANCELED) 4 mg, Oral, EVERY 24 HOURS, First dose (after last modification) on Thu08/08/24 at 0800, Until Discontinued, ---MEDICATION EXPOSURE PRECAUTIONS--- Do not split, break, crush, or open doses of this medication. Contact pharmacy if altered dose or route needed. 808 (Given - Provider: hCayito Conley RN) Tacrolimus (PROGRAF) capsule 4 mg(Linked Group 2) 4 mg, Oral, 2 TIMES DAILY (Solid Organ Transplant), First dose (after last modification) on Thu08/08/24 at 2000, Until Discontinued, ---MEDICATION EXPOSURE PRECAUTIONS--- Do not split, break, crush, or open doses of this medication. Contact pharmacy if altered dose or route needed. 1958 (Given - Provider: Hosea Manzo RN) 0820 (Given - Provider: Cheryl Haley RN)1335 ([facility] Hold - Provider: Automatic Transfer - Reason: Transfer to a Procedural area)1523 ([facility] Unhold - Provider: Automatic Transfer) ursodiol (ACTIGALL) capsule 600 mg 600 mg, Oral, 2 TIMES DAILY, First dose on Thu08/04/24 at 1700, Until Discontinued, Administer with food or milk. 0907 (Given - Provider: Abeba Valenzuela RN)1724 (Given - Provider: Abeba Valenzuela RN) 0808 (Given - Provider: Chayito Conley RN)1600 (Given - Provider: Hemal Suarez RN) 0820 (Given - Provider: Cheryl Haley RN)1335 ([facility] Hold - Provider: Automatic Transfer - Reason: Transfer to a Procedural area)1523 ([facility] Unhold - Provider: Automatic Transfer)1638 (Given - Provider: Cheryl Haley RN) valGANciclovir (valCYTE) tablet 450 mg 450 mg, Oral, 2 TIMES DAILY, First dose on Thu08/01/24 at 2130, Until Discontinued, Do not split, break, crush or chew this medication. Contact pharmacy if altered route or dose is needed. 906 (Given - Provider: Abeba Valenzuela RN)2011 (Given - Provider: Nenita Che RN) 0808 (Given - Provider: Chayito Conley, FAIZAN)195 (Given - Provider: Hosea Manzo, FAIZAN) 0820 (Given - Provider: Cheryl Haley RN)1335 ([facility] Hold - Provider: Automatic Transfer - Reason: Transfer to a Procedural area)1523 ([facility] Unhold - Provider: Automatic Transfer) PRN Medication Order 08/07/2024 08/08/2024 08/09/2024 fentaNYL (SUBLIMAZE) injection 0-300 mcg (CANCELED) 0-300 mcg, Intravenous, Administer over 2 Minutes, ADMINISTER DIRECTED, Starting on 08/09/24 at 1444, Until 08/09/24 at 1523, intraoperative pain management, Administer during procedure as directed by physician. Recorded MAR dose is cumulative amount given during procedure., Intra-op/Intra-Proc 1454 (Given - Provid er: Ashok Scanlon RN) Flumazenil (ROMAZICON) injection 0.1 mg 0.1 mg, Intravenous, ADMINISTER DIRECTED, Starting on 08/09/24 at 1514, Until 08/09/24 at 1952, Decreased responsiveness, respiratory insufficiency, Vial to bedside in procedure room. Administer under direction of physician., Post-op/Post-Proc Lidocaine 2 % injection (COMPLETED) ONCE NEEDED, 1 dose, Starting on 08/09/24 at 1503, Until 08/09/24 at 1503, Intra-op/Intra-Proc 1503 (Given - Provid er: Ashok Scanlon RN) midazolam (VERSED) injection 0-10 mg (CANCELED) 0-10 mg, Intravenous, ADMINISTER DIRECTED, Starting on 08/09/24 at 1444, Until 08/09/24 at 1523, Procedural sedation, Administer during procedure as directed by physician. Recorded MAR dose is cumulative amount given during procedure., Intra-op/Intra-Proc 1454 (Given - Provid er: Ashok Scanlon RN) Naloxone (NARCAN) injection 0.4 mg 0.4 mg, Intravenous, ADMINISTER DIRECTED, Starting on 08/09/24 at 1514, Until 08/09/24 at 1952, Decreased responsiveness, respiratory insufficiency, Vial to bedside. Administer under direction of physician., Post-op/Post-Proc Ondansetron (ZOFRAN) tablet 4 mg(Linked Group 3) 4 mg, Oral, EVERY 6 HOURS NEEDED, Starting on Thu08/09/24 at 1514, Until Thu08/09/24 at 1951, Nausea / Vomiting, Try oral dose form first. , Post-op/Post-Proc Ondansetron 4mg/2ml (ZOFRAN) injection 4 mg(Linked Group 3) 4 mg, Intravenous, EVERY 6 HOURS NEEDED, Starting on Thu08/09/24 at 1514, Until Thu08/09/24 at 1951, Nausea / Vomiting, Try oral dose form first. , Post-op/Post-Proc witch kentrell-glycerin (TUCKS) pad 1 Application 1 Application, Topical, NEEDED, Starting on Thu08/07/24 at 1000, Until Thu08/09/24 at 1951, Itching, Other, anorectal pain, Patient may self-administer 1335 (MAR Hold - Pro vider: Automatic Transfer - Reason: Transfer to a Procedural area)1523 ([facility] Unhold - Provider: Automatic Transfer) Linked Groups Order Group 1: Magnesium sulfate 1 g in dextrose 5% 100 mL premix IVPB (COMPLETED)Jump to med 1 g, Intravenous, at 100 mL/hr, Administer over 60 Minutes, ONCE, 1 dose, On Thu08/07/24 at 0915 Followed by Magnesium sulfate 1 g in dextrose 5% 100 mL premix IVPB (COMPLETED)Jump to med 1 g, Intravenous, at 100 mL/hr, Administer over 60 Minutes, ONCE, 1 dose, On Thu08/07/24 at 1015 Group 2: Tacrolimus (PROGRAF) capsule 4 mgJump to med 4 mg, Oral, 2 TIMES DAILY (Solid Organ Transplant), First dose (after last modification) on Thu08/08/24 at 2000, Until Discontinued, ---MEDICATION EXPOSURE PRECAUTIONS--- Do not split, break, crush, or open doses of this medication. Contact pharmacy if altered dose or route needed. Group 3: Ondansetron (ZOFRAN) tablet 4 mgJump to med 4 mg, Oral, EVERY 6 HOURS NEEDED, Starting on Thu08/09/24 at 1514, Until Thu08/09/24 at 1952, Nausea / Vomiting, Try oral dose form first. , Post-op/Post-Proc Or Ondansetron 4mg/2ml (ZOFRAN) injection 4 mgJump to med 4 mg, Intravenous, EVERY 6 HOURS NEEDED, Starting on Thu08/09/24 at 1514, Until Thu08/09/24 at 1952, Nausea / Vomiting, Try oral dose form first. , Post-op/Post-Proc Scheduled Medication Order 12/29/2024 12/30/2024 12/31/2024 aspirin chewable tablet 81 mg 81 mg, Oral, DAILY, First dose on Thu12/27/24 at 0900, Until Discontinued 0900 (Automatically Held - Provider: Terrance Kate MD) 0900 (Automatically Held - Provider: Terrance Kate MD)1214 (Unheld by provider - Provider: Cici Key PA-C) 0953 (Given - Provider: Abeba Valenzuela, RN) Enoxaparin Sodium (LOVENOX) injection 30 mg 30 mg, Subcutaneous, EVERY 24 HOURS, First dose on Thu12/26/24 at 1815, Until Discontinued, For SUBCUTANEOUS route ONLY: alternate injection sites between left and right abdominal wall, pinching location and avoiding area around navel. If unable to use abdominal sites, may use the front or side of thighs., Indications: DVT/PE prophylaxis, On hold since Thu12/26/2024 at 2010 until manually unheld 1814 (Automatically Held - Provider: Terrance Kate MD) 1815 (Automatically Held - Provider: Terrance Kate MD) 1529 (Unheld by provider - Provider: System Discharge) Entecavir (BARACLUDE) tablet 0.5 mg 0.5 mg, Oral, DAILY, First dose (after last modification) on Thu12/27/24 at 1445, Until Discontinued, Administer on an empty stomach. Swallow tablet whole; do not crush, split or chew. Contact pharmacy if alternate route or dose is needed. 0836 (Given - Provider: Kelli Santoyo, FAIZAN) 0956 (Given - Provider: Lilia Munson, Student Nurse) 0954 (Given - Provider: Abeba Valenzuela, RN) Gadoxetate Disodium (EOVIST) SOLN 1-25 mL (COMPLETED) 1-25 mL, Intravenous, ONCE, 1 dose, On Thu12/30/24 at 0745, Extravasation Risk., MR Procedure 0744 (Given - Radiology - Provider: Eleanor Tom) hydrocortisone (ANUSOL-HC) suppository 25 mg 25 mg, Rectal, 2 TIMES DAILY, First dose on Thu12/28/24 at 1200, Until Discontinued 0836 (Hold - Provider: Kelli Santoyo RN - Reason: Other - Comment: after mri)1815 (Not Given - Provider: Meera Waite RN - Reason: Patient/family refused) 1043 (Not Given - Provider: Ayden Alicia Nurse - Reason: Patient/family refused)1808 (Not Given - Provider: Abeba Valenzuela RN - Reason: Patient/family refused) 0953 (Not Given - Provider: Abeba Valenzuela RN - Reason: Patient/family refused) Micafungin (MYCAMINE) 150 mg in Sodium chloride 0.9%, with overfill 125 mL (total volume) IVPB 150 mg, Intravenous, Administer over 60 Minutes, EVERY 24 HOURS, First dose (after last modification) on Thu12/29/24 at 0900, Until Discontinued 0843 ($$New Bag$$ - Provider: Kelli Santoyo RN) 1030 ($$New Bag$$ - Provider: Lilia Munson, Student Nurse) 1003 ($$New Bag$$ - Provider: Abeba Valenzuela, RN) Mycophenolate mofetil (CELLCEPT) capsule 250 mg 250 mg, Oral, EVERY 12 HOURS NON-STANDARD, First dose on Thu12/26/24 at 2000, Until Discontinued, Do not split, break, crush or open this medication. Contact pharmacy if altered route or dose is needed. 0836 (Given - Provider: Kelli Santoyo, FAIZAN)2014 (Given - Provider: Yumi Irby RN) 0956 (Given - Provider: Lilia Munson, Student Nurse)215 (Given - Provider: Oj Conley RN) 0953 (Given - Provider: Abeba Valenzuela, FAIZAN) Pantoprazole (PROTONIX) injection 40 mg (CANCELED) 40 mg, Intravenous, DAILY, First dose on Thu12/27/24 at 0900, Until Discontinued, Dilute each 40 mg vial with 10 mL of NS. All bolus doses, whether 40 mg or 80 mg, should be administered over at least two minutes., Indications: Continuation of Home Therapy 08 (Given - Provider: Kelli Santoyo, RN) 1018 (Given - Provider: Lilia Munson, Student Nurse) Pantoprazole (PROTONIX) tablet DR 40 mg 40 mg, Oral, DAILY, First dose (after last modification) on Thu12/31/24 at 0900, Until Discontinued, Swallow whole; do not crush or chew., Indications: Continuation of Home Therapy 954 (Given - Provider: Abeba Valenzuela RN) Sulfamethoxazole-trimeth oprim (BACTRIM DS) 800-160 MG per tablet 1 tablet 1 tablet, Oral, 3 TIMES WEEKLY (NON-STANDARD), First dose on Thu12/28/24 at 1830, Until Discontinued 314 (Given - Provider: Oj Conley RN) Tacrolimus (PROGRAF) capsule 2 mg(Linked Group 1) 2 mg, Oral, Nightly, First dose (after last modification) on Thu12/30/24 at 2100, Until Discontinued, ---MEDICATION EXPOSURE PRECAUTIONS--- Do not split, break, crush, or open doses of this medication. Contact pharmacy if altered dose or route needed. 2153 (Given - Provider: Oj Conley RN) Tacrolimus (PROGRAF) capsule 3 mg(Linked Group 1) 3 mg, Oral, DAILY, First dose (after last modification) on Thu12/30/24 at 0900, Until Discontinued, ---MEDICATION EXPOSURE PRECAUTIONS--- Do not split, break, crush, or open doses of this medication. Contact pharmacy if altered dose or route needed. 954 (Given - Provider: Lilia Munson, Student Nurse) 53 (Given - Provider: Abeba Valenzuela RN) Tacrolimus (PROGRAF) capsule 4 mg (COMPLETED) 4 mg, Oral, ONCE, 1 dose, On Danni 12/29/24 at 2000, Do not split, break, crush, or open doses of this medication. Contact pharmacy if altered dose or route needed. Do not split, break, crush, or open doses of this medication. Contact pharmacy if altered dose or route needed. 2013 (Given - Provider: Yumi Irby RN) Tamsulosin HCl (FLOMAX) capsule 0.4 mg 0.4 mg, Oral, DAILY, First dose on Thu12/27/24 at 0900, Until Discontinued 0836 (Given - Provider: Kelli Santoyo RN) 0956 (Given - Provider: Lilia Munson, Student Nurse) 0953 (Given - Provider: Abeba Valenzuela, RN) ursodiol (ACTIGALL) capsule 600 mg 600 mg, Oral, EVERY 12 HOURS, First dose on Thu12/27/24 at 0900, Until Discontinued, Administer with food or milk. 0836 (Given - Provider: Kelli Santoyo, RN)2014 (Given - Provider: Yumi Irby RN) 0956 (Given - Provider: Lilia Munson Student Nurse)2152 (Given - Provider: Oj Conley RN) 0954 (Given - Provider: Abeba Valenzuela, RN) valGANciclovir (valCYTE) tablet 450 mg 450 mg, Oral, DAILY, First dose on Thu12/27/24 at 0900, Until Discontinued, Do not split, break, crush or chew this medication. Contact pharmacy if altered route or dose is needed. 0836 (Given - Provider: Kelli Santoyo RN) 0955 (Given - Provider: Lilia Munson Student Nurse) 0953 (Given - Provider: Abeba Valenzuela, FAIZAN) PRN Medication Order 12/29/2024 12/30/2024 12/31/2024 Acetaminophen (TYLENOL) tablet 650 mg 650 mg, Oral, EVERY 6 HOURS NEEDED, Starting on 12/26/24 at 1742, Until 12/31/24 at 1529, Mild Pain, Moderate Pain, Severe Pain, Oral temp > 100.4 F, Maximum dose of acetaminophen is 4000 mg from all sources in 24 hours. fentaNYL (SUBLIMAZE) injection 0-300 mcg () 0-300 mcg, Intravenous, Administer over 2 Minutes, ADMINISTER DIRECTED, Starting on Danni 12/29/24 at 1044, Until Danni 12/29/24 at 1443, intraoperative pain management, Administer during procedure as directed by physician. Recorded MAR dose is cumulative amount given during procedure., Intra-op/Intra-Proc 1045 (Given - Provider: Wenceslao Heart RN) Lidocaine-epinephrine 1%-[id number] injection (COMPLETED) ONCE NEEDED, 1 dose, Starting on Danni 12/29/24 at 1115, Until Danni 12/29/24 at 1115, Intra-op/Intra-Proc 1115 (Given - Provider: Hannah Kaur MD) Loperamide (IMODIUM) capsule 2 mg 2 mg, Oral, EVERY 4 HOURS NEEDED, Starting on Thu12/28/24 at 1130, Until 12/31/24 at 1529, Diarrhea 1808 (Given - Provider: Abeba Valenzuela, RN)2202 (Given - Provider: Oj Conley, RN) 0955 (Given - Provider: Abeba Valenzuela, RN) Midazolam (VERSED) injection 0-10 mg () 0-10 mg, Intravenous, ADMINISTER DIRECTED, Starting on Danni 12/29/24 at 1044, Until Danni 12/29/24 at 1443, Procedural sedation, Administer during procedure as directed by physician. Recorded MAR dose is cumulative amount given during procedure., Intra-op/Intra-Proc 1045 (Given - Provider: Wenceslao Heart, FAIZAN) Ondansetron (ZOFRAN) tablet 4 mg(Linked Group 2) 4 mg, Oral, EVERY 6 HOURS NEEDED, Starting on Thu12/26/24 at 1742, Until 12/31/24 at 1529, Nausea / Vomiting Ondansetron 4mg/2ml (ZOFRAN) injection 4 mg(Linked Group 2) 4 mg, Intravenous, EVERY 6 HOURS NEEDED, Starting on Thu12/26/24 at 1742, Until 12/31/24 at 1529, Nausea / Vomiting Sodium chloride 0.9% IV solution 250 mL Intravenous, at 20 mL/hr, NEEDED, Starting on Thu12/26/24 at 1742, Until 12/31/24 at 1529, Carrier Fluid - See Admin. Inst, 250mL 0.9NS to be used as carrier fluid for intermittent small volume or piggyback medication administration as needed. Infusion rate of the carrier fluid should be set at 20 mL/hr unless the rate as the intermittent medication is less than 20 mL/hr. For intermittent medications with a rate less than 20 mL/hr set the carrier fluid at that rate of the intermittent or piggy back medication. Linked Groups Order Group 1: Tacrolimus (PROGRAF) capsule 3 mgJump to med 3 mg, Oral, DAILY, First dose (after last modification) on Thu12/30/24 at 0900, Until Discontinued, ---MEDICATION EXPOSURE PRECAUTIONS--- Do not split, break, crush, or open doses of this medication. Contact pharmacy if altered dose or route needed. And Tacrolimus (PROGRAF) capsule 2 mgJump to med 2 mg, Oral, Nightly, First dose (after last modification) on Thu12/30/24 at 2100, Until Discontinued, ---MEDICATION EXPOSURE PRECAUTIONS--- Do not split, break, crush, or open doses of this medication. Contact pharmacy if altered dose or route needed. Group 2: Ondansetron 4mg/2ml (ZOFRAN) injection 4 mgJump to med 4 mg, Intravenous, EVERY 6 HOURS NEEDED, Starting on Thu12/26/24 at 1742, Until 12/31/24 at 1529, Nausea / Vomiting Or Ondansetron (ZOFRAN) tablet 4 mgJump to med 4 mg, Oral, EVERY 6 HOURS NEEDED, Starting on Thu12/26/24 at 1742, Until 12/31/24 at 1529, Nausea / Vomiting Care Teams (unrecognized sec tion and content) Team Status: Active Member Role Status Dates Dr. Olive Valera DO Primary Care Provider Active Team Status: Inactive Member Role Status Dates Dr. Olive Valera DO Primary Care Provider Active Start: April 11, 2024 End: April 11, 2024 Dr. Olive Valera DO Referring Provider Active Start: April 11, 2024 End: April 11, 2024 Dr. Julio Hanson DO Attending Provider Active Start: April 11, 2024 End: April 11, 2024 Team Status: Inactive Member Role Status Dates Dr. Olive Valera DO Primary Care Provider Active Start: April 27, 2024 End: April 29, 2024 Dr. Babs Marley MD Attending Provider Active Start: April 27, 2024 End: April 29, 2024 Dr. Babs Marley MD Referring Provider Active Start: April 27, 2024 End: April 29, 2024 Team Status: Inactive Member Role Status Dates Dr. Olive Valera DO Primary Care Provider Active Start: April 28, 2024 End: April 28, 2024 Dr. Babs Marley MD Attending Provider Active Start: April 28, 2024 End: April 28, 2024 Dr. Babs Marley MD Referring Provider Active Start: April 28, 2024 End: April 28, 2024 Team Status: Inactive Member Role Status Dates Dr. Olive Valera DO Primary Care Provider Active Start: May 03, 2024 End: May 03, 2024 Dr. Olive Valera DO Referring Provider Active Start: May 03, 2024 End: May 03, 2024 Dr. Ernie Pierce MD Attending Provider Active Start: May 03, 2024 End: May 03, 2024 Team Status: Inactive Member Role Status Dates Dr. Olive Valera DO Primary Care Provider Active Start: June 27, 2024 End: June 29, 2024 Dr. Babs Marley MD Other Provider Active S tart: June 27, 2024 End: June 29, 2024 W MARTHA VENCES Attending Provider Active St art: June 27, 2024 End: June 29, 2024 W MARTHA VENCES Referring Provider Active St art: June 27, 2024 End: June 29, 2024 Team Status: Inactive Member Role Status Dates Dr. Olive Valera DO Primary Care Provider Active Start: July 28, 2024 End: July 28, 2024 Dr. Babs Marley MD Other Provider Active S tart: July 28, 2024 End: July 28, 2024 W MARTHA VENCES Attending Provider Active St art: July 28, 2024 End: July 28, 2024 W MARTHA VENCES Referring Provider Active St art: July 28, 2024 End: July 28, 2024 Team Status: Active Member Role Status Dates Dr. Olive Valera DO Primary Care Provider Active Start: February 11, 2024 Dr. Robe Zavala MD Attending Provider Active Start: February 11, 2024 Dr. Robe Zavala MD Referring Provider Active Start: February 11, 2024 Team Status: Inactive Member Role Status Dates Dr. Olive Valera DO Primary Care Provider Active Start: February 18, 2024 End: February 18, 2024 Dr. Olive Valera DO Referring Provider Active Start: February 18, 2024 End: February 18, 2024 Dr. Robe Zavala MD Attending Provider Active Start: February 18, 2024 End: February 18, 2024 License Clerk Relationship Specialty Start Date End Date Olive Valera MD [address] [place] [address] PCP - General Family Medicine 01/21/21 License Clerk Relationship Specialty Start Date End Date Olive Valera MD [address] [place], [place] [address] PCP - General Family Medicine 01/21/21 License Clerk Relationship Specialty Start Date End Date Olive Valera MD [address] [place], [place] [address] PCP - General Family Medicine 01/21/21 License Clerk Relationship Specialty Start Date End Date Olive Valera MD [address] [place], [place] [id number] PCP - General Family Medicine 01/21/21 License Clerk Relationship Specialty Start Date End Date Olive Valera MD [address] [place], [place] [id number] PCP - General Family Medicine 01/21/21 Team Status: Inactive Member Role Status Dates Dr. Olive Valera , DO Primary Care Provider, Referring Provider Active Dr. Robe Zavala MD Attending Provider Active Team Status: Inactive Member Role Status Dates Dr. Olive Valera DO Primary Care Provider, Referring Provider Active Dr. Julio Hanson , DO Attending Provider Active Team Status: Active Member Role Status Dates Dr. Olive Valera DO Primary Care Provider Active Dr. Robe Zavala MD Attending Provider, Referrin g Provider Active Team Status: Inactive Member Role Status Dates Dr. Olive Valera DO Primary Care Provider Active Dr. Julio Hanson , DO Attending Provider, Referring Provider Active License Clerk Relationship Specialty Start Date End Date Olive Valera MD [address] [place], [place] [id number] PCP - General Family Medicine 01/21/21 License Clerk Relationship Specialty Start Date End Date Olive Valrea MD [address] [place] [address] PCP - General Family Medicine 01/21/21 License Clerk Relationship Specialty Start Date End Date Olive Valera MD [address] [place] [address] PCP - General Family Medicine 01/21/21 License Clerk Relationship Specialty Start Date End Date Olive Valera MD [address] [place] [address] PCP - General Family Medicine 01/21/21 License Clerk Relationship Specialty Start Date End Date Olive Valera MD [address] [place] [address] PCP - General Family Medicine 01/21/21 License Clerk Relationship Specialty Start Date End Date Olive Valera MD [address] [place] [address] PCP - General Family Medicine 01/21/21 License Clerk Relationship Specialty Start Date End Date Olive Valera MD [address] [place] [address] PCP - General Family Medicine 01/21/21 License Clerk Relationship Specialty Start Date End Date Olive Valera MD [address] [place], [place] [address] PCP - General Family Medicine 01/21/21 License Clerk Relationship Specialty Start Date End Date Olive Valera MD [address] [place], [place] [address] PCP - General Family Medicine 01/21/21 License Clerk Relationship Specialty Start Date End Date Olive Valera MD [address] [place] [address] PCP - General Family Medicine 01/21/21 License Clerk Relationship Specialty Start Date End Date Olive Valera MD [address] [place] [address] PCP - General Family Medicine 01/21/21 License Clerk Relationship Specialty Start Date End Date Olive Valera MD [address] [place] [address] PCP - General Family Medicine 01/21/21 License Clerk Relationship Specialty Start Date End Date Olive Valera MD [address] [place] [address] PCP - General Family Medicine 01/21/21 License Clerk Relationship Specialty Start Date End Date Olive Valera MD [address] [place] [address] PCP - General Family Medicine 01/21/21 Lashell Jimenez, [facility] [address] [place] [id number] Pharmacist Infectious Disease 06/10/24 06/17/24 Chad Mcknight, [facility] Pharmacist Infectious Disease 06/10/24 06/17/24 Barbie Clement, FAIZAN Registered Nurse Infectious Disease 06/10/24 06/17/24 Hosea Odell DO [address] [id number] Infectious Disease Infectious Disease 06/10/24 06/17/24 License Clerk Relationship Specialty Start Date End Date Olive Valera MD [address] [place] [address] PCP - General Family Medicine 01/21/21 Lashell Jimenez [facility] [address] [place] [address] Pharmacist Infectious Disease 06/10/24 06/17/24 Chad Mcknight, [facility] Pharmacist Infectious Disease 06/10/24 06/17/24 Barbie Clement, RN Registered Nurse Infectious Disease 06/10/24 06/17/24 Hosea Odell DO [address] [place] [address] Infectious Disease Infectious Disease 06/10/24 06/17/24 License Clerk Relationship Specialty Start Date End Date Olive Valera MD [address] [place] [address] PCP - General Family Medicine 01/21/21 Lashell Jimenez [facility] [address] [place] [address] Pharmacist Infectious Disease 06/10/24 06/17/24 Chad Mcknight [facility] Pharmacist Infectious Disease 06/10/24 06/17/24 Barbie Clement, RN Registered Nurse Infectious Disease 06/10/24 06/17/24 Hosea Odell DO [address] [place] [address] Infectious Disease Infectious Disease 06/10/24 06/17/24 License Clerk Relationship Specialty Start Date End Date Olive Valera MD [address] [place] [address] PCP - General Family Medicine 01/21/21 License Clerk Relationship Specialty Start Date End Date Olive Valera MD [address] [place] [address] PCP - General Family Medicine 01/21/21 License Clerk Relationship Specialty Start Date End Date Olive Valera MD [address] [place] [address] PCP - General Family Medicine 01/21/21 Hosea Odell DO [address] [place] [id number] Infectious Disease Infectious Disease 08/08/24 Team Status: Active Member Role Status Dates Dr. Olive Valera DO Primary Care Provider Active Start: August 15, 2024 Dr. Babs Marley MD Other Provider Active S tart: August 15, 2024 MARTHA BARDALES Attending Provider Active St art: August 15, 2024 MARTHA BARDALES Referring Provider Active St art: August 15, 2024 Dr. Robe Zavala MD Other Provider Active Start: August 15, 2024 Team Status: Inactive Member Role Status Dates Dr. Olive Valera DO Primary Care Provider Active Start: August 17, 2024 End: August 17, 2024 Dr. Olive Valera DO Referring Provider Active Start: August 17, 2024 End: August 17, 2024 Dr. Robe Zavala MD Attending Provider Active Start: August 17, 2024 End: August 17, 2024 Team Status: Active Member Role/Relationship Status Dates Dr. Olive Valera DO Primary Care Provider Active Team Status: Inactive Member Role/Relationship Status Dates Dr. Olive Valera DO Primary Care Provider Active Start: May 03, 2024 End: May 03, 2024 Dr. Olive Valera DO Referring Provider Active Start: May 03, 2024 End: May 03, 2024 Dr. Ernie Pierce MD Attending Provider Active Start: May 03, 2024 End: May 03, 2024 Team Status: Inactive Member Role/Relationship Status Dates Dr. Olive Valera DO Primary Care Provider Active Start: June 27, 2024 End: June 29, 2024 Dr. Babs Marley MD Other Provider Active S tart: June 27, 2024 End: June 29, 2024 W MARTHA VENCES Attending Provider Active St art: June 27, 2024 End: June 29, 2024 W MARTHA VENCES Referring Provider Active St art: June 27, 2024 End: June 29, 2024 Team Status: Inactive Member Role/Relationship Status Dates Dr. Olive Valera DO Primary Care Provider Active Start: July 28, 2024 End: July 28, 2024 Dr. Babs Marley MD Other Provider Active S tart: July 28, 2024 End: July 28, 2024 W MARTHA VENCES Attending Provider Active St art: July 28, 2024 End: July 28, 2024 W MARTHA VENCES Referring Provider Active St art: July 28, 2024 End: July 28, 2024 Team Status: Inactive Member Role/Relationship Status Dates Dr. Olive Valera DO Primary Care Provider Active Start: August 17, 2024 End: August 17, 2024 Dr. Olive Valera DO Referring Provider Active Start: August 17, 2024 End: August 17, 2024 Dr. Robe Zavala MD Attending Provider Active Start: August 17, 2024 End: August 17, 2024 Team Status: Inactive Member Role/Relationship Status Dates Dr. Olive Valera DO Primary Care Provider Active Start: August 29, 2024 End: August 29, 2024 Dr. Babs Marley MD Other Provider Active S tart: August 29, 2024 End: August 29, 2024 W MARTHA VENCES Attending Provider Active St art: August 29, 2024 End: August 29, 2024 W MARTHA VENCES Referring Provider Active St art: August 29, 2024 End: August 29, 2024 Dr. Robe Zavala MD Other Provider Active Start: August 29, 2024 End: August 29, 2024 License Clerk Relationship Specialty Start Date End Date Olive Valera MD [address] [place] [address] PCP - General Family Medicine 01/21/21 Team Status: Inactive Member Role/Relationship Status Dates Dr. Olive Valera DO Primary Care Provider Active Start: June 27, 2024 End: June 29, 2024 Dr. Babs Marley MD Other Provider Active S tart: June 27, 2024 End: June 29, 2024 W MARTHA VENCES Attending Provider Active St art: June 27, 2024 End: June 29, 2024 W MARTHA VENCES Referring Provider Active St art: June 27, 2024 End: June 29, 2024 Team Status: Inactive Member Role/Relationship Status Dates Dr. Olive Valera DO Primary Care Provider Active Start: July 28, 2024 End: July 28, 2024 Dr. Babs Marley MD Other Provider Active S tart: July 28, 2024 End: July 28, 2024 W MARTHA VENCES Attending Provider Active St art: July 28, 2024 End: July 28, 2024 W MARTHA VENCES Referring Provider Active St art: July 28, 2024 End: July 28, 2024 Team Status: Inactive Member Role/Relationship Status Dates Dr. Olive Valera DO Primary Care Provider Active Start: August 17, 2024 End: August 17, 2024 Dr. Olive Valera DO Referring Provider Active Start: August 17, 2024 End: August 17, 2024 Dr. Robe Zavala MD Attending Provider Active Start: August 17, 2024 End: August 17, 2024 Team Status: Inactive Member Role/Relationship Status Dates Dr. Olive Valera DO Primary Care Provider Active Start: August 29, 2024 End: August 29, 2024 Dr. Babs Marley MD Other Provider Active S tart: August 29, 2024 End: August 29, 2024 W MARTHA VENCES Attending Provider Active St art: August 29, 2024 End: August 29, 2024 W MARTHA VENCES Referring Provider Active St art: August 29, 2024 End: August 29, 2024 Dr. Robe Zavala MD Other Provider Active Start: August 29, 2024 End: August 29, 2024 Team Status: Inactive Member Role/Relationship Status Dates Dr. Olive Valera DO Primary Care Provider Active Start: September 05, 2024 End: September 29, 2024 Dr. Babs Marley MD Other Provider Active S tart: September 05, 2024 End: September 29, 2024 W MARTHA VENCES Attending Provider Active St art: September 05, 2024 End: September 29, 2024 W MARTHA VENCES Referring Provider Active St art: September 05, 2024 End: September 29, 2024 Dr. Robe Zavala MD Other Provider Active Start: September 05, 2024 End: September 29, 2024 Team Status: Inactive Member Role/Relationship Status Dates Dr. Olive Valera DO Primary Care Provider Active Start: September 26, 2024 End: September 29, 2024 Dr. Babs Marley MD Attending Provider Active Start: September 26, 2024 End: September 29, 2024 Dr. Babs Marley MD Referring Provider Active Start: September 26, 2024 End: September 29, 2024 License Clerk Relationship Specialty Start Date End Date Olive Valera MD [address] [place] [address] PCP - General Family Medicine 01/21/21 License Clerk Relationship Specialty Start Date End Date Olive Valera MD [address] [place] [address] PCP - General Family Medicine 01/21/21 Team Status: Inactive Member Role/Relationship Status Dates Dr. Olive Valera DO Primary Care Provider Active Start: July 28, 2024 End: July 28, 2024 Dr. Babs Marley MD Other Provider Active S tart: July 28, 2024 End: July 28, 2024 W MARTHA VENCES Attending Provider Active St art: July 28, 2024 End: July 28, 2024 W MARTHA VENCES Referring Provider Active St art: July 28, 2024 End: July 28, 2024 Team Status: Inactive Member Role/Relationship Status Dates Dr. Olive Valera DO Primary Care Provider Active Start: August 17, 2024 End: August 17, 2024 Dr. Olive Valera DO Referring Provider Active Start: August 17, 2024 End: August 17, 2024 Dr. Robe Zavala MD Attending Provider Active Start: August 17, 2024 End: August 17, 2024 Team Status: Inactive Member Role/Relationship Status Dates Dr. Olive Valera DO Primary Care Provider Active Start: August 29, 2024 End: August 29, 2024 Dr. Babs Marley MD Other Provider Active S tart: August 29, 2024 End: August 29, 2024 W MARTHA VENCES Attending Provider Active St art: August 29, 2024 End: August 29, 2024 W MARTHA VENCES Referring Provider Active St art: August 29, 2024 End: August 29, 2024 Dr. Robe Zavala MD Other Provider Active Start: August 29, 2024 End: August 29, 2024 Team Status: Inactive Member Role/Relationship Status Dates Dr. Olive Valera DO Primary Care Provider Active Start: September 05, 2024 End: September 29, 2024 Dr. Babs Marley MD Other Provider Active S tart: September 05, 2024 End: September 29, 2024 W MARTHA VENCES Attending Provider Active St art: September 05, 2024 End: September 29, 2024 W MARTHA VENCES Referring Provider Active St art: September 05, 2024 End: September 29, 2024 Dr. Robe Zavala MD Other Provider Active Start: September 05, 2024 End: September 29, 2024 Team Status: Inactive Member Role/Relationship Status Dates Dr. Olive Valera DO Primary Care Provider Active Start: September 26, 2024 End: September 29, 2024 Dr. Babs Marley MD Attending Provider Active Start: September 26, 2024 End: September 29, 2024 Dr. Babs Marley MD Referring Provider Active Start: September 26, 2024 End: September 29, 2024 Team Status: Inactive Member Role/Relationship Status Dates Dr. Olive Valera DO Primary Care Provider Active Start: October 24, 2024 End: October 24, 2024 Dr. Babs Marley MD Other Provider Active S tart: October 24, 2024 End: October 24, 2024 W MARTHA VENCES Attending Provider Active St art: October 24, 2024 End: October 24, 2024 W MARTHA VENCES Referring Provider Active St art: October 24, 2024 End: October 24, 2024 Dr. Robe Zavala MD Other Provider Active Start: October 24, 2024 End: October 24, 2024 Team Status: Active Member Role/Relationship Status Dates Dr. Olive Valera DO Primary care physician Active Team Status: Inactive Member Role/Relationship Status Dates Dr. Olive Valera DO Primary care physician Active Start: August 17, 2024 End: August 17, 2024 Dr. Olive Valera DO Referring Provider Active Start: August 17, 2024 End: August 17, 2024 Dr. Robe Zavala MD Attending physician Active Start: August 17, 2024 End: August 17, 2024 Team Status: Inactive Member Role/Relationship Status Dates Dr. Olive Valera DO Primary care physician Active Start: August 29, 2024 End: August 29, 2024 Dr. Babs Marley MD Nurse Practitioner Active Start: August 29, 2024 End: August 29, 2024 W MARTHA VENCES Attending physician Active S tart: August 29, 2024 End: August 29, 2024 W MARTHA VENCES Referring Provider Active St art: August 29, 2024 End: August 29, 2024 Dr. Robe Zavala MD Nurse Practitioner Active Start: August 29, 2024 End: August 29, 2024 Team Status: Inactive Member Role/Relationship Status Dates Dr. Olive Valera DO Primary care physician Active Start: September 05, 2024 End: September 29, 2024 Dr. Babs Marley MD Nurse Practitioner Active Start: September 05, 2024 End: September 29, 2024 W MARTHA VENCES Attending physician Active S tart: September 05, 2024 End: September 29, 2024 W MARTHA VENCES Referring Provider Active St art: September 05, 2024 End: September 29, 2024 Dr. Robe Zavala MD Nurse Practitioner Active Start: September 05, 2024 End: September 29, 2024 Team Status: Inactive Member Role/Relationship Status Dates Dr. Olive Valera DO Primary care physician Active Start: September 26, 2024 End: September 29, 2024 Dr. Babs Marley MD Attending physician Active Start: September 26, 2024 End: September 29, 2024 Dr. Babs Marley MD Referring Provider Active Start: September 26, 2024 End: September 29, 2024 Team Status: Inactive Member Role/Relationship Status Dates Dr. Olive Valera DO Primary care physician Active Start: October 24, 2024 End: October 24, 2024 Dr. Babs Marley MD Nurse Practitioner Active Start: October 24, 2024 End: October 24, 2024 W MARTHA VENCES Attending physician Active S tart: October 24, 2024 End: October 24, 2024 W MARTHA VENCES Referring Provider Active St art: October 24, 2024 End: October 24, 2024 Dr. Robe Zavala MD Nurse Practitioner Active Start: October 24, 2024 End: October 24, 2024 Team Status: Inactive Member Role/Relationship Status Dates Dr. Olive Valera DO Primary care physician Active Start: November 23, 2024 End: November 29, 2024 Dr. Babs Marley MD Nurse Practitioner Active Start: November 23, 2024 End: November 29, 2024 W MARTHA VENCES Attending physician Active S tart: November 23, 2024 End: November 29, 2024 W MARTHA VENCES Referring Provider Active St art: November 23, 2024 End: November 29, 2024 Dr. Robe Zavala MD Nurse Practitioner Active Start: November 23, 2024 End: November 29, 2024 Team Status: Active Member Role/Relationship Status Dates Dr. Olive Valera DO Primary care physician Active Start: November 30, 2024 Dr. Babs Marley MD Nurse Practitioner Active Start: November 30, 2024 W MARTHA VENCES Attending physician Active S tart: November 30, 2024 W MARTHA VENCES Referring Provider Active St art: November 30, 2024 Dr. Robe Zavala MD Nurse Practitioner Active Start: November 30, 2024 License Clerk Relationship Specialty Start Date End Date Olive Valera MD [address] [place] [address] PCP - General Family Medicine 01/21/21 Hosea Odell DO [address] [place] [address] Infectious Disease Infectious Disease 12/28/24 Chad Mcknight [facility] [address] [place] [address] Pharmacist Infectious Disease 12/30/24 01/28/25 Barbie Clement, FAIZAN Registered Nurse Infectious Disease 12/30/24 01/28/25 Team Status: Inactive Member Role/Relationship Status Dates Dr. Olive Valera DO Primary care physician Active Start: September 26, 2024 End: September 29, 2024 Dr. Babs Marley MD Attending physician Active Start: September 26, 2024 End: September 29, 2024 Dr. Babs Marley MD Referring Provider Active Start: September 26, 2024 End: September 29, 2024 Team Status: Inactive Member Role/Relationship Status Dates Dr. Olive Valera DO Primary care physician Active Start: October 24, 2024 End: October 24, 2024 Dr. Babs Marley MD Nurse Practitioner Active Start: October 24, 2024 End: October 24, 2024 W MARTHA VENCES Attending physician Active S tart: October 24, 2024 End: October 24, 2024 W MARTHA VENCES Referring Provider Active St art: October 24, 2024 End: October 24, 2024 Dr. Robe Zavala MD Nurse Practitioner Active Start: October 24, 2024 End: October 24, 2024 Team Status: Inactive Member Role/Relationship Status Dates Dr. Olive Valera DO Primary care physician Active Start: November 23, 2024 End: November 29, 2024 Dr. Babs Marley MD Nurse Practitioner Active Start: November 23, 2024 End: November 29, 2024 W MARTHA VENCES Attending physician Active S tart: November 23, 2024 End: November 29, 2024 W MARTHA VENCES Referring Provider Active St art: November 23, 2024 End: November 29, 2024 Dr. Robe Zavala MD Nurse Practitioner Active Start: November 23, 2024 End: November 29, 2024 Team Status: Inactive Member Role/Relationship Status Dates Dr. Olive Valera DO Primary care physician Active Start: December 14, 2024 End: December 14, 2024 Dr. Babs Marley MD Nurse Practitioner Active Start: December 14, 2024 End: December 14, 2024 W MARTHA VENCES Attending physician Active S tart: December 14, 2024 End: December 14, 2024 W MARTHA VENCES Referring Provider Active St art: December 14, 2024 End: December 14, 2024 Dr. Robe Zavala MD Nurse Practitioner Active Start: December 14, 2024 End: December 14, 2024 Team Status: Inactive Member Role/Relationship Status Dates Dr. Olive Valera DO Primary care physician Active Start: December 21, 2024 End: December 21, 2024 Dr. Olive Valera DO Referring Provider Active Start: December 21, 2024 End: December 21, 2024 Dr. Robe Zavala MD Attending physician Active Start: December 21, 2024 End: December 21, 2024 Team Status: Inactive Member Role/Relationship Status Dates Dr. Olive Valera DO Primary care physician Active Start: December 21, 2024 End: December 21, 2024 Dr. Michelle Barrera MD Attending physician Active Start: December 21, 2024 End: December 21, 2024 Dr. Michelle Barrera MD Emergency Department Physician Ac tive Start: December 21, 2024 End: December 21, 2024 Team Status: Inactive Member Role/Relationship Status Dates Dr. Olive Valera DO Primary care physician Active Start: January 04, 2025 End: January 04, 2025 Dr. Babs Marley MD Attending physician Active Start: January 04, 2025 End: January 04, 2025 Dr. Babs Marley MD Referring Provider Active Start: January 04, 2025 End: January 04, 2025 Team Status: Active Member Role/Relationship Status Dates Dr. Olive Valera DO Primary care physician Active Start: January 11, 2025 Dr. Robe Zavala MD Attending physician Active Start: January 11, 2025 Dr. Robe Zavala MD Referring Provider Active Start: January 11, 2025 MARTHA BARDALES Nurse Practitioner Active St art: January 11, 2025 Team Status: Active Member Role/Relationship Status Dates Dr. Olive Valera DO Primary care physician Active Start: January 11, 2025 Dr. Babs Marley MD Attending physician Active Start: January 11, 2025 Dr. Babs Marley MD Referring Provider Active Start: January 11, 2025 Reason for Visit (unrecogniz ed section and content) Reason Comments Liver Recipient Evaluation Specialty Diagnoses / Procedures Referred By Rima t Referred To Contact Transplant Surgery Diagnoses PSC (primary sclerosing cholangitis) Babs Marley MD [address] [place] [address] Pre Transplant Abdominal Bsh [address] [place] [address] Referral ID Status Reason Start Date Expiration Date Visits Re quested Visits Authorized [id number] Closed 02/25/2024 03/21/2025 3 3 Reason Comments Post Op Visit S/p 4-5 Loop ileosto my closure, old site is well healed, stool initially loose post op but more firm now, c/o new rectal pain and bleeding, afraid to eat because he is concerned about pain from BM Reason Comments Follow-up 06/04/2021 LOOP ILEOST ZULEMA CLOSUREHistory of UC and Sigmoid cancer. Pt has ongoing anal pain, diarrhea under control. Occasional rectal bleeding. Specialty Diagnoses / Procedures Referred By Rima ortiz Referred To Contact Diagnoses History of ulcerative colitis Procedures POUCHOSCOPY PA NDSC EVAL INTSTINAL POUCH DX W/COLLJ SPEC SPX Kiah Rushing, WATER TREATMENT OPERATOR-FILTER TIP CATCHER [address] [place] [address] Referral ID Status Reason Start Date Expiration Date V isits Requested Visits Authorized [id number] New Request 01/02/2023 01/27/2024 1 1 Reason Comments New Patient Primary sclerosing c holangitis K83.01 Specialty Diagnoses / Procedures Referred By Rima ortiz Referred To Contact Gastroenterology Diagnoses Primary sclerosing cholangitis Friend, Julio, DO [address] [place] [phone] [facility] [address] [place] [address] Referral ID Status Reason Start Date Expiration Date V isits Requested Visits Authorized [id number] New Request 12/09/2023 01/02/2025 1 1 Specialty Diagnoses / Procedures Referred By Rima ortiz Referred To Contact Diagnoses PSC (primary sclerosing cholangitis) Procedures MRI ABDOMEN WITH AND WITHOUT CONTRAST CHG MRI ABDOMEN W/O & W/CONTRAST MATERIAL Babs Marley MD [address] [facility] [address] [place] [address] Referral ID Status Reason Start Date Expiration Date Visits Re quested Visits Authorized [id number] Closed 12/23/2023 01/16/2025 1 1 Specialty Diagnoses / Procedures Referred By Rima ortiz Referred To Contact Diagnoses PSC (primary sclerosing cholangitis) Procedures ERCP PA ERCP STENT PLACEMENT BILIARY/PANCREATIC DUCT Babs Marley MD [address] [facility] [address] [place] [address] Referral ID Status Reason Start Date Expiration Date V isits Requested Visits Authorized [id number] New Request 01/25/2024 02/18/2025 1 1 Reason Comments Social Work Consult Reason Comments ECG Hook-Up Specialty Diagnoses / Procedures Referred By Rima ortiz Referred To Contact Diagnoses Primary sclerosing cholangitis Pre-transplant evaluation for liver transplant Preoperative evaluation to rule out surgical contraindication High risk surgery, pre-operative cardiovascular examination Procedures ECG Babs Marley MD [address] [place] [id number] Referral ID Status Reason Start Date Expiration Date V isits Requested Visits Authorized [id number] New Request 02/29/2024 03/25/2025 1 1 Specialty Diagnoses / Procedures Referred By Rima ortiz Referred To Contact Diagnoses Primary sclerosing cholangitis Pre-transplant evaluation for liver transplant Preoperative evaluation to rule out surgical contraindication High risk surgery, pre-operative cardiovascular examination Procedures ECHOCARDIOGRAM PA ECHO TTHRC R-T 2D W/WOM-MODE COMPL SPEC&COLR D Babs Marley MD [address] [place], [place] [id number] Referral ID Status Reason Start Date Expiration Date Visits Re quested Visits Authorized [id number] Closed 02/29/2024 03/25/2025 1 1 Specialty Diagnoses / Procedures Referred By Rima ortiz Referred To Contact Diagnoses Primary sclerosing cholangitis Pre-transplant evaluation for liver transplant Preoperative evaluation to rule out surgical contraindication Procedures EXERCISE-6 MIN. WALK Babs Marley MD [address] [facility] [address] [place] [id number] Referral ID Status Reason Start Date Expiration Date V isits Requested Visits Authorized [id number] New Request 02/29/2024 03/25/2025 1 1 Specialty Diagnoses / Procedures Referred By Rima ortiz Referred To Contact Diagnoses Primary sclerosing cholangitis Pre-transplant evaluation for liver transplant Preoperative evaluation to rule out surgical contraindication Procedures PFT STANDARD Babs Marley MD [address] [facility] [address] [place] [phone] Referral ID Status Reason Start Date Expiration Date V isits Requested Visits Authorized [id number] New Request 02/29/2024 03/25/2025 1 1 Specialty Diagnoses / Procedures Referred By Rima ortiz Referred To Contact Diagnoses Primary sclerosing cholangitis Pre-transplant evaluation for liver transplant Preoperative evaluation to rule out surgical contraindication High risk surgery, pre-operative cardiovascular examination Procedures ECHOCARDIOGRAM PHARMACOLOGICAL STRESS TEST PA ECHO TTHRC R-T 2D W/WO M-MODE REST&STRS CONT ECG PA DOP ECHOCARD PULSE WAVE W/SPECTRAL F-UP/LMTD STD PA DOP ECHOCARD COLOR FLOW VELOCITY MAPPING PA ECHO TTHRC R-T 2D W/WO M-MODE COMPLETE REST&ST Babs Marley MD [address] [facility] [address] [place] [address] Referral ID Status Reason Start Date Expiration Date Visits Re quested Visits Authorized [id number] Closed 02/29/2024 03/25/2025 1 1 Specialty Diagnoses / Procedures Referred By Rima ortiz Referred To Contact Diagnoses Primary sclerosing cholangitis Pre-transplant evaluation for liver transplant Preoperative evaluation to rule out surgical contraindication Procedures ARTERIAL BLOOD GAS, PULMONARY LAB OBTAINED Babs Marley MD [address] [address] Referral ID Status Reason Start Date Expiration Date V isits Requested Visits Authorized [id number] New Request 02/29/2024 03/25/2025 1 1 Reason Comments Establish Care Pre transplant evalu ation Specialty Diagnoses / Procedures Referred By Contact Referred To Contact Cardiovascular Medicine Diagnoses Pre-transplant evaluation for liver transplant PSC (primary sclerosing cholangitis) Preoperative evaluation to rule out surgical contraindication High risk surgery, pre-operative cardiovascular examination Abnormal dobutamine stress echo Babs Marley MD [address] [address] Referral ID Status Reason Start Date Expiration Date V isits Requested Visits Authorized [id number] New Request 03/25/2024 04/19/2025 1 1 Reason Onset Date Comments Insurance 06/10/2024 Reason Comments Liver Recipient Follow-up Reason Comments Follow-up Reason Comments Liver Recipient Follow-up Surgical Follow-up Staple Removal Condition Update Lab Review Patient Education Reason Comments Liver Recipient Follow-up Surgical Follow-up Reason Comments New Patient Rectal pain Specialty Diagnoses / Procedures Referred By Rima ortiz Referred To Contact Gastroenterology Diagnoses Ulcerative pancolitis with other complication Babs Marley MD [address] [facility] [address] [place] [address] Phone: tel: Referral ID Status Reason Start Date Expiration Date V isits Requested Visits Authorized [id number] New Request 05/16/2024 06/10/2025 1 1 FOR RECORDS PERTAINING TO PATIENTS [...] BE BASED ON THE PRIMARY CLINICAL RECORDS. [facility] [employer] provides no warranty or guarantee of the accuracy or completeness of information in this document.
[2025-01-15 14:27] LABS: Prothrombin Time (Protime)PT. 16.5 SECONDS (11.7-14.9)
[2025-01-15 14:28] LABS: Partial Thromboplast Time 35.9 Seconds (24.1-36.2)
--- NOTE | 2025-01-15 14:33 | EX.ED.DYSGE1 ---
HPI History of Present Illness Chief Complaint: GI Bleed Narrative Narrative: Patient is a 59-year-old male with past medical history of iron deficiency anemia, colon cancer, ulcerative colitis, liver transplant back in April through [facility], has J-pouch, who presents to the emergency department with a chief complaint of left lower abdominal pain. According to significant other bedside she states that he was just discharged from 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 She states that he cannot keep anything down he has vomiting and severe pain therefore they came here for further evaluation management. I also note that he has had severe diarrhea. In triage note there is noted that he was complaining of blood in his stool and she states that this has been going on for a significant mount time ever since they did some work on his J-pouch. [facility] Medical History Hemorrhoids History of steroid therapy Low iron Easy bruising History of stress test Elevated LFTs Iron deficiency anemia due to chronic blood loss History of colon cancer Injury of head and neck Non-smoker Hx of fracture of left hip Weight loss Ulcerative colitis Home Medications ?Medication ?Instructions ?Recorded ?Last Taken ?Type aspirin 81 mg chewable tablet 1 tab PO QDAY 08/17/24 01/15/25 History calcium 600 mg (as 1 tab PO QDAY 08/17/24 01/15/25 History carbonate)-vitamin D3 10 mcg (400 unit) tablet entecavir 0.5 mg tablet 0.5 mg PO QODAY 08/17/24 01/14/25 History loperamide 2 mg capsule 2 mg PO Q6H PRN loose stool 08/17/24 Unknown History (Anti-Diarrheal (loperamide)) sulfamethoxazole 800 1 tab PO MOWEFR 08/17/24 01/13/25 History mg-trimethoprim 160 mg tablet tacrolimus 1 mg capsule, 3 mg PO Q12H 08/17/24 Unknown History immediate-release alteplase 2 mg intra-catheter 2 mg intra-catheter BID PRN 01/15/25 Unknown History solution catheter occlusion lansoprazole 30 mg capsule,delayed 30 mg PO DAILY 01/15/25 01/15/25 History release micafungin 100 mg intravenous 150 mg IV DAILY 01/15/25 01/14/25 History solution (Mycamine) ondansetron 4 mg disintegrating 4 mg PO Q6H PRN nausea and 01/15/25 Unknown Rx tablet vomiting #20 tabs prednisone 10 mg tablet 10 mg PO DAILY 01/15/25 01/15/25 History tamsulosin 0.4 mg capsule (Flomax) 0.4 mg PO DAILY 01/15/25 01/14/25 History ursodiol 300 mg capsule 600 mg PO Q12H 01/15/25 01/15/25 History Allergy/AdvReac Type Severity Reaction Status Date / Time No Known Allergies Allergy Verified 01/04/25 09:28 Surgical History Liver transplant status History of esophagogastroduodenoscopy (EGD) History of ileostomy History of colon resection Hx of colonoscopy Social History household members: spouse Smoking Status: Never smoker second hand exposure: No details: very rarely substance use type: does not use cruz/christian: Amish seatbelt use: always do you feel safe at home: Yes ROS ROS ED ROS Narrative Constitutional: Complains of chills denies any fevers Eyes: Denies double vision Cardiovascular: Denies chest pain Respiratory: Denies shortness of breath Abdomen: Complains of abdominal pain as noted above as well as nausea and vomiting : Denies any urinary symptoms Neurological: Denies any numbness, weeks, tingling Musculoskeletal: Denies back pain Skin: Denies any rashes or lesions EXAM Physical Exam Narrative Exam Narrative: General: Patient is lying bed did appear to be uncomfortable had emesis bag in hand with spitting into this Head: Atraumatic, normocephalic Eyes: PERRL bilaterally, EOMI bilaterally, no conjunctival injection noted Neck: Soft, supple, trachea midline Cardiovascular: Regular rate and rhythm Respiratory: Clear to auscultation bilaterally Abdomen: Soft, nondistended, tender to palpation left lower quadrant no rebound or guarding exam Extremities: +4/5 strength in the bilateral lower extremities Neurological: Patient following commands knew that he was at [facility] year is 2024 Skin: Warm, dry, intact no rashes or lesions noted Const Vital Signs: 01/15/25 13:43 01/15/25 14:07 01/15/25 16:00 Temperature 97.8 F Temperature Source Oral Pulse Rate 71 74 Respiratory Rate 19 H 18 Blood Pressure 122/72 H 130/81 H Blood Pressure Mean 88 97 Pulse Ox 100 100 Oxygen Delivery Method Room Air Room Air MDM MDM MDM Narrative Medical decision making narrative: Patient is a 59-year-old male who presented to the emergency department with concern for nausea, vomiting, diarrhea and abdominal pain. On the differential diagnosis includes but limited to diverticulitis, bowel obstruction, viral gastroenteritis. Once workup is obtained reviewed he will be reevaluated. Patient will be given 30 cc/kg bolus of IV fluids which was ordered at 1410. Patient is a CBC reviewed and showed a white blood cell count of 2.3, hemoglobin 7.7, platelet count was noted be 235. Patient INR normal 1.3, PT of 16.5. Patient sodium was mildly low at 130, potassium was 4.4, creatinine 0.96. Patient lactic acid was less than 1, AST and ALT were normal at 17 and 10 respectively. Patient urinalysis microscopic showed negative nitrites negative leukocyte esterase have low suspicion for infection at this point time and he does not have any urinary symptoms to suggest this. Patient CT abdomen pelvis IV contrast was reviewed as well which also showed no acute findings. With no interval changes noted. Patient EKG showed sinus rhythm at a rate of 71 bpm ND interval 136 I called and spoke with on-call transplant surgeon Dr. Boland who states that the patient can call his coordinator tomorrow for follow-up purposes. They discussed this plan with the patient and significant other at bedside they are agreeable this plan. Patient will given Zofran ODT for home as well. All question concerns answered he is discharged home in stable condition Lab Data Labs: Laboratory Results - last 24 hr 01/15/25 01/15/25 13:50 16:28 WBC 2.3 L RBC 2.75 L Hgb 7.7 L Hct 23.9 L MCV 86.9 MCH 28.0 MCHC 32.2 RDW Std Deviation 57.9 H RDW Coeff of Beatrice 18.5 H Plt Count 235 MPV 11.2 Neut % (Auto) Not Reportable Absolute Neuts (auto) 1.7 L Absolute Lymphs (auto) 0.44 L Total Counted 100 Neutrophils % (Manual) 67 Band Neutrophils % 8 H Lymphocytes % (Manual) 19 Monocytes % (Manual) 3 Metamyelocytes % 2 H Myelocytes % 1 H Diff Path Review May foll Platelet Estimate ADEQUATE RBC Morphology N CYTIC Hypochromasia 1+ PT 16.5 H INR 1.3 APTT 35.9 Sodium 130 L Potassium 4.4 Chloride 99 Carbon Dioxide 21.4 Anion Gap 10 BUN 26 H Creatinine 0.96 Estim Creat Clear Calc 54.05 Est GFR (MDRD) Non-Af 91 BUN/Creatinine Ratio 27.5 H Glucose 126 H Lactic Acid < 1.0 Calcium 8.4 Total Bilirubin 0.29 AST 17 ALT 10 Alkaline Phosphatase 192 H Total Protein 5.9 Albumin 2.8 L Globulin 3.0 Albumin/Globulin Ratio 0.9 Urine Color Yellow Urine Clarity Clear Urine pH 6.0 Ur Specific [place] 1.010 Urine Protein 30 H Urine Glucose (UA) Normal Urine Ketones Negative Urine Occult Blood Negative Urine Nitrite Negative Urine Bilirubin Negative Urine Urobilinogen Normal Ur Leukocyte Esterase Negative Radiography Diagnostic Testing: Clinical Impression(s) from Imaging Studies Abdomen/Pelvis CT 01/15/25 14:08 IMPRESSION: No acute findings in the abdomen or pelvis. No significant interval change. Reading Location: [facility] Discharge Plan Triage Chief Complaint: GI Bleed ED Provider: José Manuel Katz Dx/Rx/DC Orders Clinical Impression: Abdominal pain, Nausea & vomiting, Liver transplant recipient Prescriptions: New ondansetron 4 mg tablet,disintegrating 4 mg PO Q6H PRN (Reason: nausea and vomiting) Qty: 20 0RF No Action loperamide [Anti-Diarrheal (loperamide)] 2 mg capsule 2 mg PO Q6H PRN (Reason: loose stool) aspirin 81 mg tablet,chewable 1 tab PO QDAY tacrolimus 1 mg capsule 3 mg PO Q12H calcium carbonate-vitamin D3 600 mg-10 mcg (400 unit) tablet 1 tab PO QDAY entecavir 0.5 mg tablet 0.5 mg PO QODAY sulfamethoxazole-trimethoprim 800-160 mg tablet 1 tab PO MOWEFR lansoprazole 30 mg capsule,delayed release(DR/EC) 30 mg PO DAILY ursodiol 300 mg capsule 600 mg PO Q12H alteplase 2 mg recon soln 2 mg intra-catheter BID PRN (Reason: catheter occlusion) Rx Instructions: leave dose in a single catheter lumen for 0.5 - 2 hrs micafungin [Mycamine] 100 mg recon soln 150 mg IV DAILY Rx Instructions: administer over 60 mins prednisone 10 mg tablet 10 mg PO DAILY tamsulosin [Flomax] 0.4 mg capsule 0.4 mg PO DAILY Primary Care Provider: Sage Taylor Referrals: Sage Taylor DO [Primary Care Provider, Family Practice] Activity Restrictions/Additional Instructions: Your CT and your blood work did not show any acute findings here today. I spoke with your liver transplant team and spoke with Dr. Boland and he states that you need to call the packaging coordinator tomorrow for close follow-up purposes. E Zofran as prescribed return with worsening symptoms or concerns. Print Language: Tanzanian Disposition Disposition: Home, Self Care
[2025-01-15 14:41] LABS: Neutrophil-Band 8 % (0-5); Neutrophil-Segmented 67 % (47-70); Total Cells Counted 100 (MANUAL DIFF)
[2025-01-15 14:42] LABS: Hypochromasia 1+; Red Cell Morphology N CYTIC NORMAL (NORM C&C)
[2025-01-15] MEDS: 0.9% Normal Saline (1000mL) 1,000 ML 999 ML IV ×2 (14:51→16:25)
[2025-01-15 15:12] LABS: AST(SGOT) 17 U/L (<=37); Alanine Aminotransfer ALT/SGPT 10 U/L (<=46); Albumin, Serum 2.8 g/dL (3.4-4.8); Alkaline Phosphatase 192 U/L (40-129); Anion Gap 10 (5-15); BUN 26 mg/dL (4-19); BUN/Creat Ratio 27.5 RATIO (10-20); Calcium,Total 8.4 mg/dL (7.6-11.0); Carbon Dioxide 21.4 mmol/L (21.0-32.0); Chloride 99 mmol/L (98-108); Estimated Creatinine Clearance 54.05 ml/min (50-250); Globulin 3.0 g/dL (2.2-4.2); Glucose 126 mg/dL (70-99); Potassium 4.4 mmol/L (3.3-5.1)
[2025-01-15 16:00] VITALS: BP 130/81; PULSE 74; RESP 18
[2025-01-15 16:35] LABS: Mucous, Urine 0 SEEN /hpf (<or=2+)
[2025-01-15 16:40] LABS: Color, Urine Yellow (Yellow); Glucose, Dipstick Normal (Normal); Ketone-Dipstick Negative (Negative); Leukocyte Esterase-Dipstick Negative /ul (Negative); Nitrite-Dipstick Negative (Negative); Occult Blood-Urine Negative /ul (Negative); Protein-Dipstick 30 mg/dl (Negative); Specific Gravity, Urine 1.010 (1.002-1.030); Urine Bilirubin Dipstick Negative (Negative)
[2025-01-15 17:01] LABS: Red Blood Cells-Urine 0-5 SEEN /hpf (0-5); Squamous Epithelial Cells - UA 0-5 SEEN /hpf (0-5)
[2025-01-15 17:19] VITALS: BP 130/81; PULSE 74; RESP 18; TEMP 36.6; O2SAT 98
== END 2025-01-15 17:28 | disposition home or self-care (01) ==
PROVIDERS: Emergency Provider Emergency Medicine; PCP Family Medicine; Visit Provider Emergency Medicine
DX: R10.9 Unspecified abdominal pain (principal); Z94.4 Liver transplant status; K92.2 Gastrointestinal hemorrhage, unspecified; Z79.82 Long term (current) use of aspirin; Z79.899 Other long term (current) drug therapy; R11.2 Nausea with vomiting, unspecified
CPT/HCPCS: 36415; 36592; 74177; 80053; 81001; 83605; 85025; 85610; 85730; 87040; 87086; 87088; 93005; 96361; 96374; 96375; 99285; Q9967; A4216; J2405

== ENCOUNTER 2025-01-17 18:08 | Inpatient (IN) | payer OTHER, SELFPAY ==
[2025-01-17 18:08] VITALS: BP 125/71; PULSE 75; RESP 20; TEMP 36.3; O2SAT 98
[2025-01-17 18:20] VITALS: BMI 15.2
--- NOTE | 2025-01-17 19:02 | CT_ITS ---
PROCEDURE: ABDOMEN/PELVIS W IV CONT ONLY 01/17/2025 REASON FOR EXAM: ABDOMINAL PAIN TECHNIQUE: Procedure Code: [id number] Modality: CT Procedure: ABDOMEN/PELVIS W IV CONT ONLY Coronal and Sagittal reconstruction series were provided. CONTRAST: Isovue-300 VOLUME: 75 mL One or more dose reduction techniques were used (e.g., Automated exposure control, adjustment of the mA and/or kV according to patient size, use of iterative reconstruction technique. RADIATION DOSE SUMMARY: CTDlvol: 8.44 mGy DLP: 367.01 mGycm COMPARISON: 01/15/2025 and 02/18/2021 FINDINGS: LUNG BASES: Minimal left pleural effusion. Dependent lower lobe atelectasis bilaterally. LIVER: Unremarkable. GALLBLADDER: Prior cholecystectomy. BILE DUCTS: No ductal dilation. Pneumobilia is again noted. PANCREAS: Unremarkable. SPLEEN: Unremarkable. ADRENAL GLANDS: Unremarkable. KIDNEYS: The kidneys enhance symmetrically. Stable 0.5 cm right renal cortical hypodensity, likely a cyst. No hydronephrosis or hydroureter. STOMACH AND BOWEL: Small hiatal hernia. Prior colectomy and small surgery. Several bowel loops remain distended, without a definite transition point seen. No definite perforation. APPENDIX: The appendix is not seen. RETRO/PERITONEUM: Mild p abdominal and elvic fluid, new since the prior study. No free air or focal fluid collections. LYMPH NODES: Mildly prominent equal ileocecal lymph nodes, which has mildly improved. PELVIC ORGANS: Unremarkable as visualized. VASCULATURE: No aortic aneurysm. Minimal scattered calcified atherosclerosis. ABDOMINAL WALL AND SOFT TISSUES: Mild diffuse body wall edema. BONES: No fracture or suspicious osseous abnormality. Fixation hardware in the left femur. Moderate L5-S1 disc space narrowing. CT/Abdomen/Pelvis W IV Cont ONLY IMPRESSION: 1. No significant change in bowel distention. No definite transition point se en. Findings may represent acute enteritis or an ileus with partial small bowel obstruction not excluded. 2. Small left pleural effusion and mild ascites, new since the prior study. Reading Location: [facility]
--- NOTE | 2025-01-17 19:06 | EX.ED.DYSGE1 ---
HPI History of Present Illness Chief Complaint: Abd Pain Narrative Narrative: Chief complaint and HPI: 59-year-old male with past medical history of iron deficiency anemia, colon cancer, UC, liver transplant back in April through [facility], has J-pouch, presents to the ED for evaluation of abdominal pain. Patient was just seen in our emergency department on 01/15/2025 for the same complaint. Symptoms have not improved which is why he Rigo presents. 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 For the past several days patient has been having diffuse abdominal pain, nausea, intermittent vomiting. Patient at baseline has chronic diarrhea and blood in his stool that has been ongoing since J-pouch placement. He is taking in p.o. intake but decreased secondary to his symptoms. Denies any fever, chills, shortness of breath, chest pain, dysuria, testicular or penile pain. Review of systems: See HPI Medications: As listed on the chart Allergies: As listed on the chart PFSH: Per chart Vital signs: As listed on the chart. Reviewed. Physical exam: Gen: A&O x3, NAD but disheveled Head: Normocephalic, atraumatic Eyes: No sclera icterus, conjunctiva clear ENT: Dry mucous membranes Neck: Trachea midline, full range of motion CV: RRR, no murmurs, no peripheral edema Resp: Lungs CTA BL, no w/r/c GI: Abd soft, non-distended, diffusely tender to palpation, no r/r : Circumcised penis. No penile tenderness or discharge. No penile or testicular swelling. Normal lie and position of the testicles. No testicular tenderness, masses, or skin changes. No rashes. Musc: Moves all extremities Skin: Warm, dry Psych: Cooperative, appropriate mood and affect [facility] Medical History Hemorrhoids History of steroid therapy Low iron Easy bruising History of stress test Elevated LFTs Iron deficiency anemia due to chronic blood loss History of colon cancer Injury of head and neck Non-smoker Hx of fracture of left hip Weight loss Ulcerative colitis Home Medications ?Medication ?Instructions ?Recorded ?Last Taken ?Type aspirin 81 mg chewable tablet 1 tab PO QDAY 08/17/24 01/15/25 History calcium 600 mg (as 1 tab PO QDAY 08/17/24 01/15/25 History carbonate)-vitamin D3 10 mcg (400 unit) tablet entecavir 0.5 mg tablet 0.5 mg PO QODAY 08/17/24 01/14/25 History loperamide 2 mg capsule 2 mg PO Q6H PRN loose stool 08/17/24 Unknown History (Anti-Diarrheal (loperamide)) sulfamethoxazole 800 1 tab PO MOWEFR 08/17/24 01/13/25 History mg-trimethoprim 160 mg tablet tacrolimus 1 mg capsule, 3 mg PO Q12H 08/17/24 Unknown History immediate-release alteplase 2 mg intra-catheter 2 mg intra-catheter BID PRN 01/15/25 Unknown History solution catheter occlusion lansoprazole 30 mg capsule,delayed 30 mg PO DAILY 01/15/25 01/15/25 History release micafungin 100 mg intravenous 150 mg IV DAILY 01/15/25 01/14/25 History solution (Mycamine) ondansetron 4 mg disintegrating 4 mg PO Q6H PRN nausea and 01/15/25 Unknown Rx tablet vomiting #20 tabs prednisone 10 mg tablet 10 mg PO DAILY 01/15/25 01/15/25 History tamsulosin 0.4 mg capsule (Flomax) 0.4 mg PO DAILY 01/15/25 01/14/25 History ursodiol 300 mg capsule 600 mg PO Q12H 01/15/25 01/15/25 History Allergy/AdvReac Type Severity Reaction Status Date / Time No Known Allergies Allergy Verified 01/17/25 18:08 Family History no significant family his Surgical History Liver transplant status History of esophagogastroduodenoscopy (EGD) History of ileostomy History of colon resection Hx of colonoscopy Social History household members: spouse Smoking Status: Never smoker second hand exposure: No details: very rarely substance use type: does not use cruz/lutheran: Congregational seatbelt use: always do you feel safe at home: Yes EXAM Physical Exam Const Vital Signs: 01/17/25 18:08 01/17/25 20:08 01/17/25 20:22 Temperature 97.4 F L 98 F Temperature Source Temporal Axillary Pulse Rate 75 79 Respiratory Rate 20 H 16 Blood Pressure 125/71 H 151/75 H Blood Pressure Mean 89 100 Pulse Ox 98 99 Oxygen Delivery Method Room Air Room Air 01/17/25 21:35 01/17/25 22:00 Temperature 98 F Temperature Source Pulse Rate 72 72 Respiratory Rate 16 16 Blood Pressure 131/71 H 128/66 H Blood Pressure Mean 91 86 Pulse Ox 100 99 Oxygen Delivery Method Room Air MDM MDM MDM Narrative Medical decision making narrative: 59-year-old male with past medical history of iron deficiency anemia, colon cancer, UC, liver transplant back in April through [facility], has J-pouch, presents to the ED for evaluation of abdominal pain. Patient was just seen in our emergency department on 01/15/2025 for the same complaint. Symptoms have not improved which is why he presents. For the past several days patient has been having diffuse abdominal pain, nausea, intermittent vomiting. Patient at baseline has chronic diarrhea and blood in his stool that has been ongoing since J-pouch placement. On chart review, patient was given fluids on his previous evaluation in the ER. He had abdominal pain workup including imaging. His transport surgeon was contacted, Dr. Boland. Recommended calling the coordinator in the morning. Significant other states they called the coordinator without any further workup or plan. On presentation, patient no acute distress. Dry mucous membranes. Afebrile. Differential diagnosis includes but is not limited to chronic abdominal pain, gastroenteritis, colitis, dehydration, ALAN, UTI. NS bolus, morphine, Zofran ordered for symptoms. Laboratory workup ordered including CT abdomen pelvis. CBC shows pancytopenia. Leukocytosis of 2 and anemia of 7.2. On previous labs this appears to be about his baseline. He does have new thrombocytopenia at 107. He has neutropenia which appears to be his baseline. Elevated bands. CMP shows ALAN with a BUN of 32 and a creatinine of 1.38. No transaminitis. Lipase unremarkable. Malnutrition with an albumin of 2.5. UA negative for UTI. CT abdomen pelvis?shows no significant change in bowel distention. No transition point. Findings may represent acute enteritis or an ileus with partial SBO. Small left pleural effusion and mild ascites. Mildly prominent equal ileocecal lymph nodes, which is mildly improved. Given these findings, general surgery Dr. Pierce was consulted and patient was discussed. Recommended medical admission with IV fluids and NPO. Treat as ileus. Patient was discussed with the hospitalist, Dr. Mcdaniel. Given his laboratory findings and his history of liver transplant I recommend Jocelyn reaching out to transplant surgeon prior to admission. I spoke with the [facility] transfer line. I spoke with Dr. Boland, patient's transplant surgeon. Concerned this may be failure to thrive. Recommend transfer to [facility] with admission to his service. Patient and family confirmed understanding. Patient made n.p.o. but I did allow him to take his antirejection medications. Will start maintenance fluids. Patient will be monitored in our emergency department until transfer bed able to be arranged. Impression: 1. Abdominal pain with possible ileus 2. ALAN 3. Pancytopenia 4. History of liver transplant Lab Data Labs: Laboratory Results - last 24 hr 01/17/25 01/17/25 01/17/25 18:30 19:13 20:14 WBC 2.0 L RBC 2.70 L Hgb 7.2 L Hct 23.4 L MCV 86.7 MCH 26.7 L MCHC 30.8 L RDW Std Deviation 60.2 H RDW Coeff of Beatrice 19.0 H Plt Count 107 L MPV 12.8 H Immature Gran % (Auto) Not Reportable Neut % (Auto) Not Reportable Lymph % (Auto) Not Reportable [place] % (Auto) Not Reportable Eos % (Auto) Not Reportable Baso % (Auto) Not Reportable Absolute Neuts (auto) 1.6 L Absolute Lymphs (auto) 0.20 L Total Counted 100 Neutrophils % (Manual) 74 H Band Neutrophils % 7 H Lymphocytes % (Manual) 10 L Monocytes % (Manual) 7 Metamyelocytes % 2 H Nucleated RBC % 0 Differential Comment SCANNED RBC Morphology N CYTIC Hypochromasia RARE Sodium 134 Potassium 4.7 Chloride 103 Carbon Dioxide 21.2 Anion Gap 10 BUN 32 H Creatinine 1.38 H Estim Creat Clear Calc 34.38 L Est GFR (MDRD) Non-Af 59 L BUN/Creatinine Ratio 23.1 H Glucose 123 H Lactic Acid < 1.0 Calcium 8.1 Total Bilirubin 0.28 AST 18 ALT 7 Alkaline Phosphatase 154 H Total Protein 5.6 L Albumin 2.5 L Globulin 3.2 Albumin/Globulin Ratio 0.8 L Lipase 16 Urine Color Yellow Urine Clarity Clear Urine pH 5.0 Ur Specific [place] 1.020 Urine Protein 30 H Urine Glucose (UA) Normal Urine Ketones Negative Urine Occult Blood 10 H Urine Nitrite Negative Urine Bilirubin Negative Urine Urobilinogen Normal Ur Leukocyte Esterase Negative Urine RBC 0 SEEN Urine WBC 0-5 SEEN Ur Squamous Epith Cells 0 SEEN Urine Bacteria 0 SEEN Urine Mucus 0 SEEN Radiography Diagnostic Testing: Clinical Impression(s) from Imaging Studies Abdomen/Pelvis CT 01/17/25 19:02 IMPRESSION: 1. No significant change in bowel distention. No definite transition point seen. Findings may represent acute enteritis or an ileus with partial small bowel obstruction not excluded. 2. Small left pleural effusion and mild ascites, new since the prior study. Reading Location: [facility] Discharge Plan Triage Chief Complaint: Abd Pain ED Provider: Rhett Liang Dx/Rx/DC Orders Prescriptions: No Action loperamide [Anti-Diarrheal (loperamide)] 2 mg capsule 2 mg PO Q6H PRN (Reason: loose stool) aspirin 81 mg tablet,chewable 1 tab PO QDAY tacrolimus 1 mg capsule 3 mg PO Q12H calcium carbonate-vitamin D3 600 mg-10 mcg (400 unit) tablet 1 tab PO QDAY entecavir 0.5 mg tablet 0.5 mg PO QODAY sulfamethoxazole-trimethoprim 800-160 mg tablet 1 tab PO MOWEFR lansoprazole 30 mg capsule,delayed release(DR/EC) 30 mg PO DAILY ursodiol 300 mg capsule 600 mg PO Q12H alteplase 2 mg recon soln 2 mg intra-catheter BID PRN (Reason: catheter occlusion) Rx Instructions: leave dose in a single catheter lumen for 0.5 - 2 hrs micafungin [Mycamine] 100 mg recon soln 150 mg IV DAILY Rx Instructions: administer over 60 mins prednisone 10 mg tablet 10 mg PO DAILY tamsulosin [Flomax] 0.4 mg capsule 0.4 mg PO DAILY ondansetron 4 mg tablet,disintegrating 4 mg PO Q6H PRN (Reason: nausea and vomiting) Qty: 20 0RF Primary Care Provider: Sage Taylor Referrals: Sage Taylor DO [Primary Care Provider, Family Practice] Print Language: Greenlandic
[2025-01-17] MEDS: 0.9% Normal Saline (1000mL) 1,000 ML 999 ML IV (19:14)
[2025-01-17 19:21] LABS: Hematocrit 23.4 % (40-54); Hemoglobin 7.2 g/dL (13.0-16.5); Immature Granulocytes Count 0.220 X10^3/uL (0.0-0.0); Mean Corp Hgb Conc 30.8 g/dL (32-36); Mean Corpuscular Volume 86.7 fL (80-94); Mean Platelet Vol. 12.8 fl (6.2-12.0); NRBC Flagged by Analyzer 0 % (0-5); POSITIVE COUNT YES; POSITIVE DIFFERENTIAL YES; POSITIVE MORPHOLOGY YES; Platelet Count 107 K/mm3 (150-450); RBC Distribution Width CV 19.0 % (11.6-14.6); RBC Distribution Width SD 60.2 fl (35.1-43.9); Red Blood Count 2.70 M/mm3 (4.6-6.2); White Blood Count 2.0 K/mm3 (4.4-11.0)
[2025-01-17 19:35] LABS: AST(SGOT) 18 U/L (<=37); Alanine Aminotransfer ALT/SGPT 7 U/L (<=46); Albumin, Serum 2.5 g/dL (3.4-4.8); Alkaline Phosphatase 154 U/L (40-129); Anion Gap 10 (5-15); BUN 32 mg/dL (4-19); BUN/Creat Ratio 23.1 RATIO (10-20); Calcium,Total 8.1 mg/dL (7.6-11.0); Carbon Dioxide 21.2 mmol/L (21.0-32.0); Chloride 103 mmol/L (98-108); Estimated Creatinine Clearance 34.38 ml/min (50-250); Globulin 3.2 g/dL (2.2-4.2); Glucose 123 mg/dL (70-99); Lipase 16 U/L (13-75); Potassium 4.7 mmol/L (3.3-5.1)
[2025-01-17 20:08] VITALS: BP 151/75; PULSE 79; RESP 16; O2SAT 99
[2025-01-17 20:22] VITALS: TEMP 36.6
[2025-01-17 20:22] LABS: Mucous, Urine 0 SEEN /hpf (<or=2+); Red Blood Cells-Urine 0 SEEN /hpf (0-5); Squamous Epithelial Cells - UA 0 SEEN /hpf (0-5)
[2025-01-17 20:23] LABS: Differential Indicated SCAN CRITERIA MET
[2025-01-17 20:27] LABS: Color, Urine Yellow (Yellow); Glucose, Dipstick Normal (Normal); Ketone-Dipstick Negative (Negative); Leukocyte Esterase-Dipstick Negative /ul (Negative); Nitrite-Dipstick Negative (Negative); Occult Blood-Urine 10 /ul (Negative); Protein-Dipstick 30 mg/dl (Negative); Specific Gravity, Urine 1.020 (1.002-1.030); Urine Bilirubin Dipstick Negative (Negative)
[2025-01-17 20:48] LABS: Scan Smear per Review Criteria MANUAL DIFF
[2025-01-17 20:49] LABS: Differential Comment SCANNED
[2025-01-17 21:13] LABS: Neutrophil-Band 7 % (0-5); Neutrophil-Segmented 74 % (47-70); Total Cells Counted 100 (MANUAL DIFF)
[2025-01-17 21:15] LABS: Red Cell Morphology N CYTIC NORMAL (NORM C&C)
[2025-01-17 21:24] LABS: Hypochromasia RARE
[2025-01-17 21:35] VITALS: BP 131/71; PULSE 72; RESP 16; TEMP 36.6; O2SAT 100
[2025-01-17 22:00] VITALS: BP 128/66; PULSE 72; RESP 16; O2SAT 99
[2025-01-18] VITALS (16 sets, daily range): BP systolic 102–166; BP diastolic 68–88; PULSE 73–101; RESP 14–18; TEMP 36.4–37.2; O2SAT 95–100
[2025-01-18] MEDS: 0.9% Normal Saline (1000mL) 1,000 ML 85 ML IV ×2 (00:17→10:45)
--- NOTE | 2025-01-18 07:11 | PCA ---
CALLED [facility] @ 710 FOR BED UPDATE, THEY SAID THEY HAVE A COUPLE PATIENTS LEAVING SOMETIME TODAY ON THE TRANSPLANT FLOOR.
--- NOTE | 2025-01-18 08:05 | ED.RN ---
water given per dr eunice burden
--- NOTE | 2025-01-18 11:01 | PCA ---
CALLED [facility] @ [phone] FOR AN UPDATE. I SPOKE WITH ARPIT AT THE TRANSFER CENTER. SHE SAID THAT IT LOOKS LIKE THERE IS GOING TO ONLY BE ONE DISCHARGE TODAY, BUT SHE ISNT CERTAIN. SHE SAID CALLBACK IN A COUPLE HOURS OR THEY WILL CALL BACK IN A COUPLE HRS WHEN THEY KNOW MORE.
[2025-01-18 11:10] LABS: Hematocrit 19.7 % (40-54); Hemoglobin 6.1 g/dL (13.0-16.5)
--- NOTE | 2025-01-18 11:30 | ED.RN ---
dr villagomez notified hgb=6.1. spoke with pt and at bedside- states he'll order 1 unit blood to transfuse
--- NOTE | 2025-01-18 13:35 | PCA ---
CALLED [facility] @ 1388 AND THEY DONT HAVE A BED YET UNTIL MORE DISCHARGES. SAID THERE ARE THREE ON THE TRANSPLANT UNIT AND FOUR PATIENTS THAT NEED A BED. WILL CALL BACK WHEN THEY CAN
--- NOTE | 2025-01-18 18:28 | PCA ---
CALLED [facility] @ 182 FOR A BED UPDATE, THEY SAID IT WAS BEST TO TRY TO ADMIT HIM HERE BECAUSE THEY HAVE ORGANS COMING TO [facility] FOR A TRANSPLANT SO THE FLOOR NEEDS THE BED.
--- NOTE | 2025-01-18 19:54 | PCA ---
Called [facility] to update them on change in pt status @ 1999.
[2025-01-18 20:43] LABS: Hematocrit 25.7 % (40-54); Hemoglobin 8.2 g/dL (13.0-16.5); Mean Corp Hgb Conc 31.9 g/dL (32-36); Mean Corpuscular Volume 86.0 fL (80-94); POSITIVE COUNT YES; POSITIVE DIFFERENTIAL YES; POSITIVE MORPHOLOGY YES; RBC Distribution Width CV 18.6 % (11.6-14.6); RBC Distribution Width SD 57.3 fl (35.1-43.9); Red Blood Count 2.99 M/mm3 (4.6-6.2); White Blood Count 2.1 K/mm3 (4.4-11.0)
[2025-01-18 20:55] LABS: Differential Indicated MANUAL DIFF
[2025-01-18 21:13] LABS: AST(SGOT) 20 U/L (<=37); Alanine Aminotransfer ALT/SGPT 8 U/L (<=46); Albumin, Serum 2.6 g/dL (3.4-4.8); Alkaline Phosphatase 143 U/L (40-129); Anion Gap 10 (5-15); BUN 39 mg/dL (4-19); BUN/Creat Ratio 27.8 RATIO (10-20); Calcium,Total 8.3 mg/dL (7.6-11.0); Carbon Dioxide 18.7 mmol/L (21.0-32.0); Chloride 105 mmol/L (98-108); Estimated Creatinine Clearance 33.65 ml/min (50-250); Globulin 3.4 g/dL (2.2-4.2); Glucose 126 mg/dL (70-99); Magnesium 1.9 mg/dL (1.5-2.2); Potassium 4.9 mmol/L (3.3-5.1)
[2025-01-18 23:02] LABS: CMV Culture (Buffy Coat) REF LAB
[2025-01-18 23:14] LABS: Neutrophil-Band 11 % (0-5); Neutrophil-Segmented 71 % (47-70); Total Cells Counted 100 (MANUAL DIFF)
[2025-01-18 23:28] LABS: Platelet Count 64 K/mm3 (150-450)
[2025-01-18 23:30] LABS: Dohle Bodies 1+; Toxic Granulation 2+; Vacuolated Cells 1+
[2025-01-18 23:32] LABS: Acanthocytes 1+; Anisocytosis 2+; Crenated RBC 1+; Schistocytes 1+
[2025-01-18 23:33] LABS: Target Cells RARE; Tear Drop Cell 1+
[2025-01-19] VITALS (9 sets, daily range): BP systolic 123–162; BP diastolic 81–97; PULSE 65–103; RESP 16–18; TEMP 36.6–37.5; O2SAT 94–99; BMI 15.7
--- NOTE | 2025-01-19 00:19 | PCM.HP.STD ---
HPI - General General Date of Admission: 01/19/25 Date of Service: 01/19/25 Chief Complaint: abdominal pain HPI Narrative JC MALIK, is a 59 M who presented to the emergency department [facility] on 01/17/2025 with a chief complaint of abdominal pain. 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 He has a J-pouch and previous liver transplant which was performed [facility] in April 2024. He was seen in emergency department on 01/15/2025 for the same complaint and his symptoms had not improved that is why he came back to the emergency department for reevaluation. He had a recent admission at [facility] at which time he was placed on micafungin with a PICC line due to fungal infection. 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 Patient reported he had had several days of diffuse abdominal pain, nausea, intermittent vomiting and diarrhea that was worse than his baseline. He has had pretty chronic blood in his stool that has been problematic ever since his J-pouch. He denies fever or chills, shortness of breath, chest pain. He does report that his appetite has not been great and he has had fairly significant weight loss since his transplant. He is still employed but not able to work at this present time. Current vital signs at the time of admission show a temperature of 99.5, pulse is 83, respiratory to 18, blood pressure is 140/81 and pulse ox is 95% on room air. CBC shows pancytopenia with a white count of 2.1, hemoglobin of 8.2 after 2 units of packed red blood cells, and platelet count of 64,000 down from 107,000 yesterday at the time of presentation and prior to that his platelet count was normal on 01/15/2025 at 235,000. He does have significant bandemia on his differential at 11%. Chemistry panel showed a serum bicarb of 18.7 with a normal anion gap. Electrolytes were overtly unremarkable. BUN was 39 with serum creatinine 1.41. His baseline creatinine appears to run between 0.9 and 1.2. Liver functions are normal. UA was unremarkable and not consistent with infection. CT of the abdomen pelvis was performed and showed no significant change in bowel distention from CT done on 01/15/2025, no transition point but did show prior colectomy with several bowel loops distended and suggestive of possible enteritis, ileus, or partial small bowel obstruction, he was also noted a small left pleural effusion, mild ascites. Given his complex medical history and previous transplant was felt that he would be appropriate for transfer to [facility]. He was put up for transfer on 01/17/2025 and we were initially told he would have a bed on the day of 01/18/2025. He unfortunately did not receive a bed and after multiple calls with updated information regarding his new thrombocytopenia and GI bleed still no bed was made available so he will be admitted here for care until bed is available. [facility] Medical History Hemorrhoids History of steroid therapy Low iron Easy bruising History of stress test Elevated LFTs Iron deficiency anemia due to chronic blood loss History of colon cancer Injury of head and neck Non-smoker Hx of fracture of left hip Weight loss Ulcerative colitis Home Medications ?Medication ?Instructions ?Recorded ?Last Taken ?Type aspirin 81 mg chewable tablet 1 tab PO QDAY 08/17/24 01/15/25 History calcium 600 mg (as 1 tab PO QDAY 08/17/24 01/15/25 History carbonate)-vitamin D3 10 mcg (400 unit) tablet entecavir 0.5 mg tablet 0.5 mg PO QODAY 08/17/24 01/14/25 History loperamide 2 mg capsule 2 mg PO Q6H PRN loose stool 08/17/24 Unknown History (Anti-Diarrheal (loperamide)) sulfamethoxazole 800 1 tab PO MOWEFR 08/17/24 01/13/25 History mg-trimethoprim 160 mg tablet tacrolimus 1 mg capsule, 3 mg PO Q12H 08/17/24 Unknown History immediate-release alteplase 2 mg intra-catheter 2 mg intra-catheter BID PRN 01/15/25 Unknown History solution catheter occlusion lansoprazole 30 mg capsule,delayed 30 mg PO DAILY 01/15/25 01/15/25 History release micafungin 100 mg intravenous 150 mg IV DAILY 01/15/25 01/14/25 History solution (Mycamine) ondansetron 4 mg disintegrating 4 mg PO Q6H PRN nausea and 01/15/25 Unknown Rx tablet vomiting #20 tabs prednisone 10 mg tablet 10 mg PO DAILY 01/15/25 01/15/25 History tamsulosin 0.4 mg capsule (Flomax) 0.4 mg PO DAILY 01/15/25 01/14/25 History ursodiol 300 mg capsule 600 mg PO Q12H 01/15/25 01/15/25 History Allergy/AdvReac Type Severity Reaction Status Date / Time No Known Allergies Allergy Verified 01/17/25 18:08 Family History no significant family his Surgical History Liver transplant status History of esophagogastroduodenoscopy (EGD) History of ileostomy History of colon resection Hx of colonoscopy Social History household members: spouse Smoking Status: Never smoker second hand exposure: No details: very rarely substance use type: does not use cruz/yazdanism: Lutheran seatbelt use: always do you feel safe at home: Yes ROS Constitutional Constitutional: Reports anorexia, change in weight, fatigue and weakness; Denies chills, fever(s), malaise, night sweats or other Eyes Eyes: Denies blurry vision, change in eye color, change in vision, discharge from eye(s), double vision, erythema, eye pain, loss of vision or other ENT HEENT: Denies abnormal hearing, dysphagia, ear pain, epistaxis, headache(s), hearing loss, nasal congestion, nasal discharge, post nasal drip, sinus pressure, sore throat or other Cardiovascular Cardiovascular: Denies chest pain, claudication, dyspnea on exertion, edema, lightheadedness, orthopnea, palpitations, paroxysmal nocturnal dyspnea, rapid heart rate, syncope or other Respiratory/Chest Respiratory/Chest: Denies cough, dyspnea, excessive phlegm production, hemoptysis, productive cough, shortness of breath at rest, shortness of breath with exertion, wheezing or other Gastrointestinal Gastrointestinal: Reports abdominal pain, diarrhea, hematochezia, nausea and vomiting; Denies coffee ground emesis, constipation, dyspepsia, hematemesis, loose stools, melena or other Genitourinary Genitourinary: Denies burning urination, difficulty urinating, dysuria, hematuria, nocturia, urinary frequency, urinary hesitancy, urinary incontinence, urinary urgency or other Musculoskeletal Musculoskeletal: Denies arthralgias, back pain, joint pain, joint stiffness, joint swelling, myalgias, neck pain or other Neurologic Neurologic: Denies abnormal gait, abnormal speech, confusion, disequilibrium, dizziness, focal weakness, headache(s), numbness, paresthesias, seizure-like activity, seizures, syncope, tingling, tremor(s) or other Psychiatric Psychiatric: Denies anxiety, depression, homicidal ideation, suicidal ideation or other Endocrine Endocrinology: Denies change in body appearance, cold intolerance, excessive sweating, heat intolerance, polydipsia, polyuria or other Hematologic/Lymphatic Hematologic/Lymphatic: Reports anemia and easy bruising; Denies easy bleeding, lymphadenopathy or other Allergic/Immunologic Allergic/Immunologic: Denies rhinitis, hives, eczemia, asthma or other Vital Signs Vital Signs Vital Signs: 01/18/25 02:00 01/18/25 04:00 01/18/25 06:00 Temperature Temperature Source Pulse Rate 79 86 101 H Respiratory Rate 16 16 Blood Pressure 153/80 H 166/81 H 153/88 H Blood Pressure Mean 104 109 109 Blood Pressure Source Blood Pressure Position Blood Pressure Location Pulse Ox 98 99 95 Oxygen Delivery Method Room Air Room Air Room Air 01/18/25 07:46 01/18/25 10:45 01/18/25 13:33 Temperature 97.6 F L 99.0 F Temperature Source Oral Oral Pulse Rate 90 97 81 Respiratory Rate 16 16 16 Blood Pressure 102/69 121/75 H 107/68 Blood Pressure Mean 80 90 81 Blood Pressure Source Monitor Blood Pressure Position Semi-Fowlers Blood Pressure Location Left Arm Pulse Ox 99 99 97 Oxygen Delivery Method Room Air Room Air Room Air 01/18/25 13:48 01/18/25 14:26 01/18/25 14:48 Temperature 98.7 F 98.6 F 98.3 F Temperature Source Oral Oral Oral Pulse Rate 80 80 75 Respiratory Rate 16 14 16 Blood Pressure 113/70 124/78 H 129/84 H Blood Pressure Mean 84 93 99 Blood Pressure Source Monitor Monitor Monitor Blood Pressure Position Semi-Fowlers Semi-Fowlers Blood Pressure Location Left Arm Left Arm Pulse Ox 97 97 99 Oxygen Delivery Method Room Air Room Air Room Air 01/18/25 17:24 01/18/25 18:37 01/19/25 00:00 Temperature 99.5 F H Temperature Source Oral Pulse Rate 79 75 83 Respiratory Rate 18 16 18 Blood Pressure 131/85 H 135/78 H 140/81 H Blood Pressure Mean 100 97 100 Blood Pressure Source Blood Pressure Position Blood Pressure Location Pulse Ox 100 100 95 Oxygen Delivery Method Room Air Room Air Room Air Weight Weight: 42.7 kg Body Mass Index (BMI) 15.2 Physical Exam Const alert, oriented x3 and no apparent distress; Negative for average body habitus, healthy appearing or well nourished Constitutional Narrative: Cachectic appearing, white male, appears older than stated age, lying in bed, appears mildly uncomfortable but nontoxic, at bedside, very pleasant General Appearance: cooperative HEENT normocephalic, head/scalp atraumatic and moist oral mucous membranes HEENT Narrative: Significant temporal wasting bilaterally, Mallampati is 2, no thrush Eyes EOMs intact bilaterally Eyes Narrative: Pale conjunctiva bilaterally, no scleral icterus Neck supple Neck Narrative: Trachea midline, neck veins are flat Resp normal respiratory effort, no retractions, no use of accessory muscles and clear to auscultation bilaterally Auscultation: Negative for rales, rhonchi or wheezes Cardio regular rate, regular rhythm, S1 normal heart sound, S2 normal heart sound, no murmurs, no rub, no gallops and no clicks GI GI Narrative: Vital signs are hypoactive, mild diffuse tenderness but soft, no significant guarding or rebound tenderness Extremity no clubbing, cyanosis or edema Extremity Narrative: Markedly decreased lean muscle mass Skin No no jaundice, No no petechiae and No no mottling Skin Narrative: Tunneled central venous catheter right chest is clean dry and intact, skin is pale Neuro oriented x3, moves all extremities and no focal motor deficits Neuro Narrative: generalized weakness but no focal deficits Speech: speech normal Psych Psych Narrative: Affect is slightly flat but appropriate for the situation, makes good eye contact and interacts appropriately Results Lab / Micro Data 01/18/25 20:29 01/18/25 20:29 Labs: Laboratory Results - last 24 hr 01/18/25 11:00: Hgb 6.1 L, Hct 19.7 L 01/18/25 11:41: Blood Type O POSITIVE, Antibody Screen NEGATIVE, Crossmatch See Detail 01/18/25 20:29: WBC 2.1 L, RBC 2.99 L, Hgb 8.2 L, Hct 25.7 L, MCV 86.0, MCH 27.4, MCHC 31.9 L, RDW Std Deviation 57.3 H, RDW Coeff of Beatrice 18.6 H, Plt Count 64 L, MPV TNP, Neut % (Auto) Not Reportable, Absolute Neuts (auto) 1.7 L, Absolute Lymphs (auto) 0.32 L, Total Counted 100, Neutrophils % (Manual) 71 H, Band Neutrophils % 11 H, Lymphocytes % (Manual) 15 L, Monocytes % (Manual) 2, Metamyelocytes % 1, Diff Path Review May foll, Toxic Granulation 2+, Toxic Vacuolation 1+, Dohle Bodies 1+, Platelet Estimate MOD DEC, Anisocytosis 2+, Target Cells RARE, Tear Drop Cells 1+, Ovalocytes 1+, Crenated Cell 1+, Acanthocytes (Spur) 1+, Schistocytes 1+, Sodium 134, Potassium 4.9, Chloride 105, Carbon Dioxide 18.7 L, Anion Gap 10, BUN 39 H, Creatinine 1.41 H, Estim Creat Clear Calc 33.65 L, Est GFR (MDRD) Non-Af 57 L, BUN/Creatinine Ratio 27.8 H, Glucose 126 H, Calcium 8.3, Phosphorus 3.8, Magnesium 1.9, Total Bilirubin 0.38, AST 20, ALT 8, Alkaline Phosphatase 143 H, Total Protein 6.0, Albumin 2.6 L, Globulin 3.4, Albumin/Globulin Ratio 0.8 L Assessment & Plan Assessment/Plan (1) Liver transplant recipient: (2) Nausea & vomiting: (3) Abdominal pain: (4) Enteritis: (5) Ileus: (6) Lower GI bleeding: (7) Thrombocytopenia: (8) Acute on chronic blood loss anemia: (9) Severe malnutrition: PLAN: Plan Abdominal pain/nausea/vomiting/diarrhea secondary to enteritis +/- ileus versus partial small bowel obstruction - Transfer to [facility] is pending - N.p.o. except for sips and chips and medications - IV fluids to continue at 125 cc/h - As needed antiemetics - As needed pain medication - Check stool studies for enteric panel, C. difficile, and CMV given immunosuppression - Will consult ID for assistance given previous transplant and complexity of medical care - General Surgery consult-discussed with Dr. Guardado Acute thrombocytopenia - Platelet count is trending down - Not receiving any heparin products - SCDs for DVT prophylaxis - Check Eduarda smear - Check coags for low-level DIC - Doubt HIT as patient has not received heparin products this hospitalization - If platelets continue to trend down may need transfusion and consultation to oncology--> patient has seen [facility] oncology here previously Acute on chronic blood loss anemia -Suspect ongoing iron deficiency anemia - Patient undergoes periodic IV iron infusions based on outpatient follow-up blood work from hematology/oncology - Patient with ongoing bright red blood per rectum - States this is a chronic problem since his J-pouch however hemoglobin has dropped to 6.1 - Patient received 2 units packed red blood cells - Follow CBC every 6 hours x 2 to trend platelets and hemoglobin--> may need further cycling depending on values - If ongoing loss may need GI consultation for assistance until transfer can be arranged 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 on a regular basis - Patient should probably be on supplements at home as well and will await recommendations from dietitian GERD - Continue home PPI but utilize IV while NPO to limit p.o. pill intake Recent fungal esophagitis - Was on IV micafungin via PICC line - Has been discontinued for several days - Hold any further treatment for now - ID consultation for assistance management given immunosuppression complexity of case History of ulcerative colitis - May be etiology of his ongoing GI bleeding - On no suppressive therapy - History of partial colectomy with J-pouch formation History of adenocarcinoma of the sigmoid colon - Previous total proctocolectomy in January 2021 at [facility] with Dr. Johnson - Cancer was stage II with no yakov metastasis - Follows with [facility] oncology last visit 12/21/2024 Chronic steroid use for immunosuppression - Has been on since transplant - Will need to monitor closely for osteoporosis - May need to consider bisphosphonate - Outpatient follow-up DVT prophylaxis - SCDs - no chemoprophylaxis due to profound thrombocytopenia that is worsening CODE STATUS - Full code as verified at the time of admission Mr. Malik was evaluated in the Emergency Department at [facility] on 01/17/2025. At the time of evaluation, transfer to a tertiary hospital was felt to be in the patient's best interest due to history of liver transplant with complicated medical history and presentation with abdominal pain, history of J-pouch. Attempts were made by the Emergency Department and/or the Hospitalist team to get Mr. Malik to the appropriate level of care. Although the pt is accepted for transfer to the [facility], there are no staffed beds currently available. Given the need for ongoing medical care, Mr. Malik will be admitted to [facility] on 01/19/2025, and care will be provided here until [facility] to [facility] has an available staffed bed. Pt and/or family are aware of the transfer, the reasoning behind the need for transfer, and that until a staffed bed becomes available, we will provide evidence-based care to the best of our abilities, with the limitations of care here being fully addressed. Charges/Coding Visit Charges Inpatient E&M: 33159 Init Hosp L2
--- OUTSIDE RECORDS SUMMARY | 2025-01-19 00:29 | XMS RPT_ITS | CCD ---
Author Organization [facility] Care Team Providers Care Fruit Picker Name Role Phone Dr. Olive Valera Primary Care Provider Dr. Olive Valera Referring Provider Dr. Robe Zavala Attending Provider Olive Valera MD Primary Care Provider Dr. Olive Valera Primary Care Provider Dr. Olive Valera Referring Provider Dr. Robe Zavala Attending Provider Olive Valrea MD Primary Care Provider Olive Valera MD [...] Provider Dr. Babs Marley MD Attending Provider Donell MILIAN, Dr. Arzate Referring Provider Stan MILIAN, Dr. Ernie Choi Attending Provider Barbara [facility], Lashell Ferreira Unavailable Mila Husain [facility], Chad Figueroa Unavailable Un available Racquel RN, Barbie Unavailable Unavailable Cass SMALLWOOD, Hosea Choi Unavailable Dr. Olive Valera DO Primary Care Provider Dr. Olive Valera DO Referring Provider Donell MILIAN, Dr. Arzate Other Provider DALLASAkosua Attending Provider [place]osua Referring Provider Cass SMALLWOOD, Hosea Choi Unavailable Dr. Olive Valera DO Primary Care Provider Dr. Olive Valera DO Referring Provider Herman MILIAN, Dr. Nagel Other Provider Herman MILIAN, Dr. Nagel Attending Provider Dr. Olive Valera DO Primary Care Provider Dr. Robe Zavala MD Other Provider Dr. Olive Valera DO Primary Care Provider [phone] Dr. Olive Valera DO Referring Provider Dr. Babs Marley MD Attending Provider Dr. Babs Marley MD Referring Provider Dr. Olive Valera DO Primary Care Provider [phone] Donell MILIAN, Dr. Arzate Other Provider MARTHAAkosua Attending Provider [phone] [place] Referring Provider Dr. Olive Valera DO Primary Care Physician Herman MILIAN, Dr. Nagel Attending Physician Donell MILIAN, Dr. Arzate Nurse Practitioner [phone] [place] THOMAS Attending Physician [place] THOMAS Referring Provider Herman MILIAN, Dr. Nagel Nurse Practitioner Donell MILIAN, Dr. Arzate Attending Physician Cass , Hosea Jimbo Unavailable Mila Husain [facility], Chad Figueroa Unavailable Un available Barbie Clement [...] Primary Care Unavailable MARIBEL BROOKS Attending Unavailable TEE BROOKSETI J Referring [...] Attending Unavailable HOSEA ODELL Referring Unavailabl e Dalai THOMAS Attending Unavailable MORAIMA, OLIVE L Primary [...] Physician Donell MILIAN, Dr. Arzate Attending Physician [phone] Donell MILIAN, Dr. Arzate Referring Provider [phone] Donell MILIAN, Dr. Arzate Nurse Practitioner [phone] [place] Attending Physician [place] Referring Provider [phone] Herman MILIAN, Dr. Nagel Nurse Practitioner [phone] Dr. Olive Valera DO Referring Provider Dr. Robe Zavala MD Attending Physician Josselin MILIAN, Dr. Vinson Attending Physician Unavaila john Barrera MD, Dr. Vinson Emergency Department Physici an Unavailable Herman MILIAN, Dr. 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 ADVERTISING 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 TO PROCEDURE, 1 dose, Starting on Danni 02/25/24 at 0900, Until Danni 02/25/24 at 0850, Other, pancreatitis, Give under direction of MD performing procedure, Intra-op/Intra-Proc Start: 02-25-2024 End: 02-25-2024 100 mg, Rectal, ONLINE ADVERTISING DIRECTOR TO P ROCEDURE, 1 dose, Starting on [...] 08-17-2024 Start: 08-17-2024 take 1 capsule by [facility] every six hours as needed Start: [...] Administer under direction of physician., Post-op/Post-Proc nystatin [id number] unt/ml oral suspension (5 sources) Polyene Antifungal Start: 06-10-2024 End: 07-04-2024 take 1 mL by mouth four times daily Nystatin [id number] UNIT/ML oral suspension Swish and swallow 1 [...] source) Taking high risk medication; 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: [Other fci (current) drug therapy] 06-13-2024 Episodic Other aftercare (1 source) Long-term current use of antibiotic; 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: [buttermaker helper (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 of antibiotics] 06-15-2024 Episodic Other aftercare (1 source) H/O: high risk medication; 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: [Other fci (current) drug therapy] 10-10-2024 Episodic Other aftercare [...] 05-25-2024 Episodic Other aftercare (2 sources) Other fci (current) drug therapy; 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: [Other intermediate project manager (current) drug therapy] Onset: 09-29-2024 Episodic Other aftercare (3 sources) Encounter for therapeutic drug level monitoring; 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: [Encounter for therapeutic drug level monitoring] Onset: 09-29-2024 Episodic Other aftercare (1 source) halfway (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 of antibiotics; 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: [buttermaker helper (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 of antibiotics] Onset: 06-15-2024 Episodic [...] transplant] Onset: 10-10-2024 Unclassified (1 source) Other fci (current) drug therapy; 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: [Other fci (current) drug therapy] Onset: 10-10-2024 Unclassified (1 [...] (Unsp spec) [#/Vol] 0.32 10*3/uL Low 0.83-4.51 [facility] Lymphocytes Auto (Unsp spec) [#/Vol] 0.93 10*3/uL 0.83-4.51 [facility] Alkaline phosphatase measure mentOrdered By: Babs Marley on 01-11-2025 ALP [Catalytic activity/Vol] 301 U/L High 40-129 [facility] Anion gap in Serum or Plasma Ordered By: Babs Marley on 01-11-2025 Anion gap [Moles/Vol] 10 mmol/L 5-15 [facility] Automated lymphocyte count a s percentage of total leukocytesOrdered By: Babs Marley on 01-11-2025 Lymphocytes/100 WBC Auto (Unsp spec) 15.5 % Low 19-41 [facility] Lymphocytes/100 WBC Auto (Unsp spec) Not Reportable [facility] Basophil percentageOrdered B y: Babs Marley on 01-11-2025 Basophils/100 WBC (Bld) 1.0 % 0-1 [facility] Bilirubin, DirectOrdered By: Babs Marley on 01-11-2025 Bilirubin.direct [Mass/Vol] 0.20 mg/dL Normal 0.00-0.30 [facility] Comment on above: Performed By: #### L 501.2300, L500.4050, L501.4700, L100.0100, L501.5200 ####[facility] [address] [place], [address] Blood lymphocytes/100 leukoc ytesOrdered By: Babs Marley on 01-11-2025 Lymphocytes/100 WBC (Bld) 45 % High 19-41 [facility] Blood monocytes/100 leukocyt esOrdered By: Babs Marley on 01-11-2025 Monocytes/100 WBC (Bld) 4 % 0-10 [facility] Blood segmented neutrophils/ 100 leukocytesOrdered By: Babs Marley on 01-11-2025 Segmented neutrophils/100 WBC (Bld) 50 % 47-70 [facility] CBC W/Diff, Automatedon 12-31 REACTIVE LYMPH 1+ Normal [facility] Comment on above: Performed By: #### L 501.2300, L500.4050, L501.4700, L100.0100, L501.5200 ####[facility] [address] [place], [address] Absolute Lymph 0.93 X10 3/uL Normal 0.83-4.51 [facility] Comment on above: Result Comment: AMENDED REPORT 01/11/25 1030 Absolute Lymph previously reported as: 0.32 L X10 3/uL Performed By: #### L 501.2300, L500.4050, L501.4700, L100.0100, L501.5200 ####[facility] [address] [place], [address] Absolute Neut 1.0 X10 3/uL Low 2.0-7.7 [facility] Comment on above: Result Comment: AMENDED REPORT 01/11/25 1030 Absolute Neut previously reported as: 0.9 L X10 3/uL Performed By: #### L 501.2300, L500.4050, L501.4700, L100.0100, L501.5200 ####[facility] [address] [place], [address] Comprehensive Metabolic Prof ilOrdered By: Babs Marley on 01-11-2025 Albumin [Mass/Vol] 3.0 g/dL Low 3.4-4.8 [facility] Comment on above: Performed By: #### L 501.2300, L500.4050, L501.4700, L100.0100, L501.5200 ####[facility] [address] [place], [address] ALT [Catalytic activity/Vol] 10 U/L Normal <=46 [facility] Comment on above: Performed By: #### L 501.2300, L500.4050, L501.4700, L100.0100, L501.5200 ####[facility] [address] [place], [address] Bilirubin [Mass/Vol] 0.33 mg/dL Normal 0.00-1.30 [facility] Comment on above: Performed By: #### L 501.2300, L500.4050, L501.4700, L100.0100, L501.5200 ####[facility] [address] [place], [address] Calcium [Mass/Vol] 8.7 mg/dL Normal 7.6-11.0 [facility] Comment on above: Performed By: #### L 501.2300, L500.4050, L501.4700, L100.0100, L501.5200 ####[facility] [address] [place], [address] Chloride [Moles/Vol] 104 mmol/L Normal 98-108 [facility] Comment on above: Performed By: #### L 501.2300, L500.4050, L501.4700, L100.0100, L501.5200 ####[facility] [address] [place], [address] CO2 [Moles/Vol] 21.5 mmol/L Normal 21.0-32.0 [facility] Comment on above: Performed By: #### L 501.2300, L500.4050, L501.4700, L100.0100, L501.5200 ####[facility] [address] [place], [address] Creatinine [Mass/Vol] 1.16 mg/dL Normal 0.70-1.20 [facility] Comment on above: Performed By: #### L 501.2300, L500.4050, L501.4700, L100.0100, L501.5200 ####[facility] [address] [place], [address] GFR/1.73 sq M.predicted among non-blacks MDRD (S/P/Bld) [Vol rate/Area] 72 mL/min/{1.73_m2} Normal >60 [facility] Comment on above: Result Comment: mL/m in/1.73m2 CKD-EPI Creatinine Equation (2020) Performed By: #### L 501.2300, L500.4050, L501.4700, L100.0100, L501.5200 ####[facility] [address] [place], [address] Globulin (S) [Mass/Vol] 3.1 g/dL Normal 2.2-4.2 [facility] Comment on above: Performed By: #### L 501.2300, L500.4050, L501.4700, L100.0100, L501.5200 ####[facility] [address] [place], [address] Glucose [Mass/Vol] 116 mg/dL High 70-99 [facility] Comment on above: Performed By: #### L 501.2300, L500.4050, L501.4700, L100.0100, L501.5200 ####[facility] [address] [place], [address] Sodium [Moles/Vol] 136 mmol/L Normal 133-145 [facility] Comment on above: Performed By: #### L 501.2300, L500.4050, L501.4700, L100.0100, L501.5200 ####[facility] [address] [place], [address] Urea nitrogen [Mass/Vol] 33 mg/dL High 4-19 [facility] Comment on above: Performed By: #### L 501.2300, L500.4050, L501.4700, L100.0100, L501.5200 ####[facility] [address] [place], [address] Comprehensive Metabolic Prof ilon 01-11-2025 Albumin/Globulin [Mass ratio] 1.0 {ratio} Normal 0.9-2.4 [facility] Comment on above: Performed By: #### L 501.2300, L500.4050, L501.4700, L100.0100, L501.5200 ####[facility] [address] [place], [address] ALK PHOS 301 U/L High 40-129 [facility] Comment on above: Performed By: #### L 501.2300, L500.4050, L501.4700, L100.0100, L501.5200 ####[facility] [address] [place], [address] AST [Catalytic activity/Vol] 15 U/L Normal <=37 [facility] Comment on above: Performed By: #### L 501.2300, L500.4050, L501.4700, L100.0100, L501.5200 ####[facility] [address] [place], [address] BUN/CRE 28.4 RATIO High 10-20 [facility] Comment on above: Performed By: #### L 501.2300, L500.4050, L501.4700, L100.0100, L501.5200 ####[facility] [address] [place], [address] GAP 10 Normal 5-15 [facility] Comment on above: Performed By: #### L 501.2300, L500.4050, L501.4700, L100.0100, L501.5200 ####[facility] [address] [place], [address] Potassium [Moles/Vol] 4.6 mmol/L Normal 3.3-5.1 [facility] Comment on above: Performed By: #### L 501.2300, L500.4050, L501.4700, L100.0100, L501.5200 ####[facility] [address] [place], [address] T PROT 6.0 g/dL Normal 5.9-8.4 [facility] Comment on above: Performed By: #### L 501.2300, L500.4050, L501.4700, L100.0100, L501.5200 ####[facility] [address] [place], [address] Eosinophil percentageOrdered By: Babs Marley on 01-11-2025 Eosinophils/100 WBC (Bld) 0.0 % 0-5 [facility] Erythrocyte distribution wid th ratioOrdered By: Babs Marley on 01-11-2025 Erythrocyte distribution width (RBC) [Ratio] 17.8 % High 11.6-14.6 [facility] Erythrocyte distribution wid th standard deviationOrdered By: Babs Marley on 01-11-2025 Erythrocyte distribution width (RBC) [Ratio] 56.3 fl High 35.1-43.9 [facility] Hematocrit Auto (Bld) [Volum e fraction]Ordered By: Babs Marley on 01-11-2025 Hematocrit (Bld) [Volume fraction] 27.2 % Low 40-54 [facility] Hemoglobin measurementOrdere d By: Babs Marley on 01-11-2025 Hemoglobin (Bld) [Mass/Vol] 8.6 g/dL Low 13.0-16.5 [facility] Immature granulocytes/100 WB C Auto (Bld)Ordered By: Babs Marley on 01-11-2025 Immature granulocytes/100 WBC (Bld) 13.600 % High 0.0-0.9 [facility] Immature granulocytes/100 WBC (Bld) Not Reportable [facility] MCV (mean corpuscular volume ) determinationOrdered By: Babs Marley on 01-11-2025 MCV (RBC) [Entitic vol] 86.9 fL 80-94 [facility] Magnesiumon 01-11-2025 Magnesium [Mass/Vol] 1.9 mg/dL Normal 1.5-2.2 [facility] Comment on above: Performed By: #### L 501.2300, L500.4050, L501.4700, L100.0100, L501.5200 ####[facility] [address] [place], [place], [address] Magnesium measurement (mass/ volume)Ordered By: Babs Marley on 01-11-2025 Magnesium (Unsp spec) [Mass/Vol] 1.9 mg/dL 1.5-2.2 [facility] Mean corpuscular hemoglobin (MCH) determinationOrdered By: Babs Marley on 01-11-2025 MCH (RBC) [Entitic mass] 27.5 pg 27.0-32.0 [facility] Monocyte percentageOrdered B y: Babs Marley on 01-11-2025 Monocytes/100 WBC (Bld) 26.7 % High 0-10 [facility] Neutrophil percentageOrdered By: Gregorylindsey Marley on 01-11-2025 Neutrophils/100 WBC (Bld) 43.2 % Low 47-70 [facility] No Panel InformationOrdered By: [facility] Center[facility] Mar[facility] on 01-11-2025 15 U/L <38 [facility] Phosphoruson 01-11-2025 Phosphate [Mass/Vol] 2.9 mg/dL Normal 2.7-4.5 [facility] Comment on above: Performed By: #### L 501.2300, L500.4050, L501.4700, L100.0100, L501.5200 ####[facility] [address] [place], [place], [id number] Platelet countOrdered By: Yissel ruby Bosearya on 01-11-2025 Platelets (Bld) [#/Vol] 423 10*3/uL 150-450 [facility] Potassium measurement (mass/ volume)Ordered By: Gregorykiranlindsey Marley on 01-11-2025 Potassium (Unsp spec) [Mass/Vol] 4.6 mmol/L 3.3-5.1 [facility] RBC Auto (Bld) [#/Vol]Ordere d By: Gregorykiranlindsey Marley on 01-11-2025 RBC (Bld) [#/Vol] 3.13 10*6/uL Low 4.6-6.2 [facility] Total cell countOrdered By: Babs Marley on 01-11-2025 Cells counted Molgen (Bld/Tiss) [#] 100 MANUAL DIFF [facility] Total proteinOrdered By: Lorena celina Donell on 01-11-2025 Protein [Mass/Vol] 6.0 g/dL 5.9-8.4 [facility] White blood cell (WBC) count Ordered By: Babs Marley on 01-11-2025 WBC (Bld) [#/Vol] 2.1 10*3/uL Low 4.4-11.0 [facility] L3400.8500on 01-07-2025 CMV Quant DNA Negative Normal Negative [facility] Comment on above: Order Comment: Test( s) [id number] (FK506), Bloodwas developed and its performance characteristicsdetermined by [facility]. It has not been cleared or approvedby the Food and Drug Administration. Result Comment: No C MV DNA detected.The quantitative range of this assay is 200 to 1 millionIU/mL. Performed By: #### L 501.4700, L501.2300, L3400.8500, L3380.1000, L501.5200, L500.4050, L501.5101, L100.0100 ####[facility] [address] [place], [place], [id number] CMV Quant DNA TNP Normal . [facility] Comment on above: Order Comment: Test( s) [id number]-Kolkhbemfg (FK506), Bloodwas developed and its performance characteristicsdetermined by [facility]. It has not been cleared or approvedby the Food and Drug Administration. Result Comment: Resu lt Units: log10 IU/mLUnable to calculate result since non-numeric resultobtained for component test. Performed By: #### L 501.4700, L501.2300, L3400.8500, L3380.1000, L501.5200, L500.4050, L501.5101, L100.0100 ####[facility] [address] [place], [address] L501.5101on 01-07-2025 GGTP 31 IU/L Normal 0-65 [facility] Comment on above: Order Comment: Test( s) [id number]-Jaewmrlwet (FK506), Bloodwas developed and its performance characteristicsdetermined by [facility]. It has not been cleared or approvedby the Food and Drug Administration. Result Comment: Perf ormed at: [facility] [address] [id number] Director: Red Graham PhD, Phone: [phone] at: [facility] [id number] Director: Sergio Machado MD, Phone: [phone] Performed By: #### L 501.4700, L501.2300, L3400.8500, L3380.1000, L501.5200, L500.4050, L501.5101, L100.0100 ####[facility] [address] [place], [address] Tacrolimus (Prograf)on 01-07 Tacrolimus (Bld) [Mass/Vol] 3.7 ng/mL Low 5.0-20.0 [facility] Comment on above: Order Comment: Test( s) [id number]-Ighacmondl (FK506), Bloodwas developed and its performance characteristicsdetermined by [facility]. It has not been cleared or approvedby [...] L501.2300, L3400.8500, L3380.1000, L501.5200, L500.4050, L501.5101, L100.0100 ####[facility] [address] [place], [place], [id number] Absolute lymphocyte countOrd ered By: Babs Marley on 01-04-2025 Lymphocytes Auto (Unsp spec) [#/Vol] 0.39 10*3/uL Low 0.83-4.51 [facility] Anion gap in Serum or Plasma Ordered By: Babs Marley on 01-04-2025 Anion gap [Moles/Vol] 10 mmol/L 5-15 [facility] BUN/creatinine ratioOrdered By: Babs Marley on 01-04-2025 Urea nitrogen/Creatinine [Mass ratio] 27.1 mg/mg High 10-20 [facility] Bilirubin directOrdered By: Babs Marley on 01-04-2025 Bilirubin.direct [Mass/Vol] 0.13 mg/dL 0.00-0.30 [facility] Bilirubin, Directon 01-05-20 25 Bilirubin.direct [Mass/Vol] 0.13 mg/dL Normal 0.00-0.30 [facility] Comment on above: Performed By: #### L 501.4700, L501.2300, L3400.8500, L3380.1000, L501.5200, L500.4050, L501.5101, L100.0100 ####[facility] [address] [place], [address] Bilirubin, totalOrdered By: Babs Marley on 01-04-2025 Bilirubin [Mass/Vol] 0.28 mg/dL 0.00-1.30 [facility] Blood band neutrophil count as percentage of total leukocytesOrdered By: Babs Marley on 01-04-2025 Band form neutrophils/100 WBC (Bld) 4 % 0-5 [facility] Blood basophils/100 leukocyt esOrdered By: Babs Marley on 01-04-2025 Basophils/100 WBC (Bld) 2 % High 0-1 [facility] Blood lymphocytes/100 leukoc ytesOrdered By: Babs Marley on 01-04-2025 Lymphocytes/100 WBC (Bld) 25 % 19-41 [facility] Blood metamyelocytes/100 susy kocytesOrdered By: Babs Marley on 01-04-2025 Metamyelocytes/100 WBC (Bld) 6 % High 0-1 [facility] Blood monocytes/100 leukocyt esOrdered By: Babs Marley on 01-04-2025 Monocytes/100 WBC (Bld) 12 % High 0-10 [facility] Blood segmented neutrophils/ 100 leukocytesOrdered By: Babs Marley on 01-04-2025 Segmented neutrophils/100 WBC (Bld) 51 % 47-70 [facility] CBC W/Diff, Automatedon Absolute Lymph 0.39 X10 3/uL Low 0.83-4.51 [facility] Comment on above: Performed By: #### L 501.4700, L501.2300, L3400.8500, L3380.1000, L501.5200, L500.4050, L501.5101, L100.0100 ####[facility] [address] [place], [address] Absolute Neut 0.8 X10 3/uL Low 2.0-7.7 [facility] Comment on above: Performed By: #### L 501.4700, L501.2300, L3400.8500, L3380.1000, L501.5200, L500.4050, L501.5101, L100.0100 ####[facility] [address] [place], [address] Carbon dioxide, total [Moles /volume] in Central venous bloodOrdered By: Babs Marley on 01-04-2025 CO2 [Moles/Vol] 22.3 mmol/L 21.0-32.0 [facility] Chloride assayOrdered By: Yissel Marley on 01-04-2025 Chloride [Moles/Vol] 102 mmol/L 98-108 [facility] Comprehensive Metabolic Prof ilon 01-04-2025 Albumin [Mass/Vol] 3.4 g/dL Normal 3.4-4.8 [facility] Comment on above: Performed By: #### L 501.4700, L501.2300, L3400.8500, L3380.1000, L501.5200, L500.4050, L501.5101, L100.0100 ####[facility] [address] [place], [address] Albumin/Globulin [Mass ratio] 1.2 {ratio} Normal 0.9-2.4 [facility] Comment on above: Performed By: #### L 501.4700, L501.2300, L3400.8500, L3380.1000, L501.5200, L500.4050, L501.5101, L100.0100 ####[facility] [address] [place], [address] ALK PHOS 456 U/L High 40-129 [facility] Comment on above: Performed By: #### L 501.4700, L501.2300, L3400.8500, L3380.1000, L501.5200, L500.4050, L501.5101, L100.0100 ####[facility] [address] [place], [address] ALT [Catalytic activity/Vol] 20 U/L Normal <=46 [facility] Comment on above: Performed By: #### L 501.4700, L501.2300, L3400.8500, L3380.1000, L501.5200, L500.4050, L501.5101, L100.0100 ####[facility] [address] [place], [address] AST [Catalytic activity/Vol] 35 U/L Normal <=37 [facility] [facility] Comment on above: Performed By: #### L 501.4700, L501.2300, L3400.8500, L3380.1000, L501.5200, L500.4050, L501.5101, L100.0100 ####[facility] [address] [place], [address] Bilirubin [Mass/Vol] 0.28 mg/dL Normal 0.00-1.30 [facility] Comment on above: Performed By: #### L 501.4700, L501.2300, L3400.8500, L3380.1000, L501.5200, L500.4050, L501.5101, L100.0100 ####[facility] [address] [place], [address] BUN/CRE 27.1 RATIO High 10-20 [facility] Comment on above: Performed By: #### L 501.4700, L501.2300, L3400.8500, L3380.1000, L501.5200, L500.4050, L501.5101, L100.0100 ####[facility] [address] [place], [address] Calcium [Mass/Vol] 8.7 mg/dL Normal 7.6-11.0 [facility] Comment on above: Performed By: #### L 501.4700, L501.2300, L3400.8500, L3380.1000, L501.5200, L500.4050, L501.5101, L100.0100 ####[facility] [address] [place], [address] Chloride [Moles/Vol] 102 mmol/L Normal 98-108 [facility] Comment on above: Performed By: #### L 501.4700, L501.2300, L3400.8500, L3380.1000, L501.5200, L500.4050, L501.5101, L100.0100 ####[facility] [address] [place], [address] CO2 [Moles/Vol] 22.3 mmol/L Normal 21.0-32.0 [facility] Comment on above: Performed By: #### L 501.4700, L501.2300, L3400.8500, L3380.1000, L501.5200, L500.4050, L501.5101, L100.0100 ####[facility] [address] [place], [address] Creatinine [Mass/Vol] 0.89 mg/dL Normal 0.70-1.20 [facility] Comment on above: Performed By: #### L 501.4700, L501.2300, L3400.8500, L3380.1000, L501.5200, L500.4050, L501.5101, L100.0100 ####[facility] [address] [place], [address] GAP 10 Normal 5-15 [facility] Comment on above: Performed By: #### L 501.4700, L501.2300, L3400.8500, L3380.1000, L501.5200, L500.4050, L501.5101, L100.0100 ####[facility] [address] [place], [address] GFR/1.73 sq M.predicted among non-blacks MDRD (S/P/Bld) [Vol rate/Area] 98 mL/min/{1.73_m2} Normal >60 [facility] Comment on above: Result Comment: mL/m in/1.73m2 CKD-EPI Creatinine Equation (2020) Performed By: #### L 501.4700, L501.2300, L3400.8500, L3380.1000, L501.5200, L500.4050, L501.5101, L100.0100 ####[facility] [address] [place], [address] Globulin (S) [Mass/Vol] 2.8 g/dL Normal 2.2-4.2 [facility] Comment on above: Performed By: #### L 501.4700, L501.2300, L3400.8500, L3380.1000, L501.5200, L500.4050, L501.5101, L100.0100 ####[facility] [address] [place], [address] Glucose [Mass/Vol] 159 mg/dL High 70-99 [facility] Comment on above: Performed By: #### L 501.4700, L501.2300, L3400.8500, L3380.1000, L501.5200, L500.4050, L501.5101, L100.0100 ####[facility] [address] [place], [address] Potassium [Moles/Vol] 4.0 mmol/L Normal 3.3-5.1 [facility] Comment on above: Performed By: #### L 501.4700, L501.2300, L3400.8500, L3380.1000, L501.5200, L500.4050, L501.5101, L100.0100 ####[facility] [address] [place], [address] Sodium [Moles/Vol] 135 mmol/L Normal 133-145 [facility] Comment on above: Performed By: #### L 501.4700, L501.2300, L3400.8500, L3380.1000, L501.5200, L500.4050, L501.5101, L100.0100 ####[facility] [address] [place], [place], [id number] T PROT 6.1 g/dL Normal 5.9-8.4 [facility] Comment on above: Performed By: #### L 501.4700, L501.2300, L3400.8500, L3380.1000, L501.5200, L500.4050, L501.5101, L100.0100 ####[facility] [address] [place], [place], [id number] Urea nitrogen [Mass/Vol] 24 mg/dL High 4-19 [facility] Comment on above: Performed By: #### L 501.4700, L501.2300, L3400.8500, L3380.1000, L501.5200, L500.4050, L501.5101, L100.0100 ####[facility] [address] [facility] [address] [place], [place], [id number] Cytomegalovirus (CMV) DNA me asurement by PCR (log units/volume)Ordered By: Babs Marley on 01-04-2025 CMV DNA JACKY+probe (P) [Log units/Vol] TNP [facility] Erythrocyte distribution wid th ratioOrdered By: Babs Marley on 01-04-2025 Erythrocyte distribution width (RBC) [Ratio] 17.3 % High 11.6-14.6 [facility] Erythrocyte distribution wid th standard deviationOrdered By: Babs Marley on 01-04-2025 Erythrocyte distribution width (RBC) [Ratio] 56.4 fl High 35.1-43.9 [facility] Gamma glutamyl transferase ( GGT) measurementOrdered By: Babs Marley on 01-04-2025 Amylase [Catalytic activity/Vol] 31 U/L 0-65 [facility] Glomerular filtration rate ( GFR) estimation/1.73 sq m using serum, plasma, or whole bOrdered By: Babs Marley on 01-04-2025 GFR/1.73 sq M.predicted among non-blacks MDRD (S/P/Bld) [Vol rate/Area] 98 mL/min/{1.73_m2} >60 [facility] Hematocrit Auto (Bld) [Volum e fraction]Ordered By: Babs Marley on 01-04-2025 Hematocrit (Bld) [Volume fraction] 29.7 % Low 40-54 [facility] Hemoglobin measurementOrdere d By: Babs Marley on 01-04-2025 Hemoglobin (Bld) [Mass/Vol] 9.2 g/dL Low 13.0-16.5 [facility] MCV (mean corpuscular volume ) determinationOrdered By: Babs Marley on 01-04-2025 MCV (RBC) [Entitic vol] 89.2 fL 80-94 [facility] Magnesiumon 01-04-2025 Magnesium [Mass/Vol] 1.8 mg/dL Normal 1.5-2.2 [facility] Comment on above: Performed By: #### L 501.4700, L501.2300, L3400.8500, L3380.1000, L501.5200, L500.4050, L501.5101, L100.0100 ####[facility] [address] [place], [address] Magnesium measurement (mass/ volume)Ordered By: Babs Marley on 01-04-2025 Magnesium (Unsp spec) [Mass/Vol] 1.8 mg/dL 1.5-2.2 [facility] Mean corpuscular hemoglobin (MCH) determinationOrdered By: Babs Marley on 01-04-2025 MCH (RBC) [Entitic mass] 27.6 pg 27.0-32.0 [facility] No Panel InformationOrdered By: Babs Marley on 01-04-2025 35 U/L <38 [facility] Phosphoruson 01-04-2025 Phosphate [Mass/Vol] 2.2 mg/dL Low 2.7-4.5 [facility] Comment on above: Performed By: #### L 501.4700, L501.2300, L3400.8500, L3380.1000, L501.5200, L500.4050, L501.5101, L100.0100 ####[facility] [address] [place], [address] Platelet countOrdered By: Yissel Marley on 01-04-2025 Platelets (Bld) [#/Vol] 374 10*3/uL 150-450 [facility] Potassium measurement (mass/ volume)Ordered By: Babs Marley on 01-04-2025 Potassium (Unsp spec) [Mass/Vol] 4.0 mmol/L 3.3-5.1 [facility] RBC Auto (Bld) [#/Vol]Ordere d By: Babs Marley on 01-04-2025 RBC (Bld) [#/Vol] 3.33 10*6/uL Low 4.6-6.2 [facility] Serum creatinine measurement (mass/volume)Ordered By: Babs Marley on 01-04-2025 Creatinine [Mass/Vol] 0.89 mg/dL 0.70-1.20 [facility] Serum globulin measurementOr dered By: Babs Marley on 01-04-2025 Globulin (S) [Mass/Vol] 2.8 g/dL 2.2-4.2 [facility] Serum glucose measurement (m ass/volume)Ordered By: Babs Marley on 01-04-2025 Glucose [Mass/Vol] 159 mg/dL High 70-99 [facility] Serum or plasma alanine craig otransferase (ALT) measurementOrdered By: Babs Marley on 01-04-2025 ALT [Catalytic activity/Vol] 20 U/L <47 [facility] Serum or plasma albumin megha urement (mass/volume)Ordered By: Babs Marley on 01-04-2025 Albumin [Mass/Vol] 3.4 g/dL 3.4-4.8 [facility] Serum or plasma albumin/glob ulin mass ratioOrdered By: Babs Marley on 01-04-2025 Albumin/Globulin [Mass ratio] 1.2 {ratio} 0.9-2.4 [facility] Serum or plasma alkaline sal sphatase measurementOrdered By: Babs Marley on 01-04-2025 ALP [Catalytic activity/Vol] 456 U/L High 40-129 [facility] Serum or plasma calcium megha urement (mass/volume)Ordered By: Babs Marley on 01-04-2025 Calcium [Mass/Vol] 8.7 mg/dL 7.6-11.0 [facility] Serum or plasma urea nitroge n measurement (mass/volume)Ordered By: Babs Marley on 01-04-2025 Urea nitrogen [Mass/Vol] 24 mg/dL High 4-19 [facility] Sodium levelOrdered By: Gregory Marley on 01-04-2025 Sodium [Moles/Vol] 135 mmol/L 133-145 [facility] Total cell countOrdered By: Babs Marley on 01-04-2025 Cells counted [employer] (Bld/Tiss) [#] 100 MANUAL DIFF [facility] Total proteinOrdered By: Lorena Marley on 01-04-2025 Protein [Mass/Vol] 6.1 g/dL 5.9-8.4 [facility] White blood cell (WBC) count Ordered By: Babs Marley on 01-04-2025 WBC (Bld) [#/Vol] 1.6 10*3/uL Low 4.4-11.0 [facility] ALK PHOSPHATASE FRACTIONATED on 12-31-2024 ALK PHOS BONE 606.3 U/L High 12.0-56.7 [facility] Comment on above: Performed By: #### Y ALPFB ####[facility] (DEFAULT)[address] [place] [address] ALK PHOS INTESTINAL 0.0 U/L Normal <=12.6 [facility] Comment on above: Result Comment: Test Performed by:[address] Director: Orlando Cruz Ph.D.; CLIA# [id number] Performed By: #### Y ALPFB ####[facility] (DEFAULT)[address] [place] [address] ALK PHOS INTESTINAL FRACTION 0.0 % Normal <=22.5 [facility] Comment on above: Performed By: #### Y ALPFB ####[facility] (DEFAULT)[address] [place] [address] ALKALINE PHOS, BONE FRACTION 85.3 % High 23.8-68.3 [facility] Comment on above: Performed By: #### Y ALPFB ####[facility] (DEFAULT)[address] [place] [address] ALKALINE PHOS, TOTAL 711 U/L High 40-129 [facility] Comment on above: Performed By: #### Y ALPFB ####[facility] (DEFAULT)[address] [facility] [address] ALKALINE PHOSPHATASE ISOENZYMES DNR Normal [facility] Comment on above: Performed By: #### Y ALPFB ####[facility] (DEFAULT)[address] [place] [address] LIVER FRACTION 14.7 % Low 30.2-74.7 [facility] Comment on above: Performed By: #### Y ALPFB ####[facility] (DEFAULT)[address] [facility] [place] [address] LIVER I 104.7 U/L High 15.8-71.9 [facility] Comment on above: Performed By: #### Y ALPFB ####[facility] (DEFAULT)[address] [place] [address] CBC AND ELECTRONIC DIFFon Erythrocyte distribution width (RBC) [Ratio] 17.4 % High 10.9 - 14.3 % [facility] Hematocrit (Bld) [Volume fraction] 34.7 % Low 39.6 - 48.8 % [facility] Hemoglobin (Bld) [Mass/Vol] 10.5 g/dL Low 13.4 - 16.8 g/dL [facility] MCH (RBC) [Entitic mass] 27.1 pg 26.1 - 33.3 pg [facility] MCHC (RBC) [Mass/Vol] 30.3 g/dL Low 31.9 - 36.5 g/dL [facility] MCV (RBC) [Entitic vol] 89.7 fL 79.0 - 94.5 fL [facility] Platelet mean volume (Bld) [Entitic vol] 10.0 fL 8.7 - 12.3 fL [facility] Platelets (Bld) [#/Vol] 464 10*3/uL High 146 - 337 K/uL [facility] RBC (Bld) [#/Vol] 3.87 10*6/uL Low [facility] WBC (Bld) [#/Vol] 2.17 10*3/uL Low 3.73 - 10. 10 K/uL [facility] Hematocrit (Bld) [Volume fraction] 34.7 % Low 39.6-48.8 [facility] Comment on above: Performed By: #### L AB980 ####[facility] (DEFAULT)[address] [place] [address] Hemoglobin (Bld) [Mass/Vol] 10.5 g/dL Low 13.4-16.8 [facility] Comment on above: Performed By: #### L AB980 ####[facility] (DEFAULT)[address] [place] [address] MCV (RBC) [Entitic vol] 89.7 fL Normal 79.0-94.5 [facility] Comment on above: Performed By: #### L AB980 ####[facility] (DEFAULT)[address] [place] [address] Mean Cell Hgb 27.1 pg Normal 26.1-33.3 [facility] Comment on above: Performed By: #### L AB980 ####[facility] (DEFAULT)[address] [place] [address] [place] [address] Mean Cell Hgb Conc 30.3 g/dL Low 31.9-36.5 [facility] Comment on above: Performed By: #### L AB980 ####[facility] (DEFAULT)[address] [place] [address] Platelet mean volume (Bld) [Entitic vol] 10.0 fL Normal 8.7-12.3 [facility] Comment on above: Performed By: #### L AB980 ####[facility] (DEFAULT)[address] [place] [address], [place] [address] Platelets (Bld) [#/Vol] 464 10*3/uL High 146-337 [facility] Comment on above: Performed By: #### L AB980 ####[facility] (DEFAULT)[address] [place] [address] RBC (Bld) [#/Vol] 3.87 10*6/uL Low 4.38-5.83 [facility] Comment on above: Performed By: #### L AB980 ####[facility] (DEFAULT)[address] [place] [address] RBC Distribution 17.4 % High 10.9-14.3 [facility] Comment on above: Performed By: #### L AB980 ####[facility] (DEFAULT)[address] [place] [address] WBC (Bld) [#/Vol] 2.17 10*3/uL Low 3.73-10.10 [facility] Comment on above: Performed By: #### L AB980 ####[facility] (DEFAULT)[address] [place] [address] CHEM 7 (LYTES,BUN,CREA,GLUC) on 12-31-2024 Anion gap [Moles/Vol] 12 mmol/L 7 - 17 mmol/L [facility] Chloride [Moles/Vol] 102 mmol/L 98 - 10 8 mmol/L [facility] CO2 [Moles/Vol] 24 mmol/L 21 - 31 mmol/L [facility] Creatinine [Mass/Vol] 0.90 mg/dL 0.70 - 1.30 mg/dL [facility] eGFR, CKD-EPI, Male - PINF [facility] Comment on above: Reported eGFR is bas ed on the CKD-EPI 2020 equation using creatinine, age, and sex. Glucose [Mass/Vol] 128 mg/dL 70 - 179 mg/dL [facility] Osmolality Calc [Osmolality] 287 [facility] Potassium [Moles/Vol] 4.2 mmol/L 3.5 - 5.0 mmol/L [facility] Sodium [Moles/Vol] 134 mmol/L Low 135 - 145 mmol/L [facility] Urea nitrogen [Mass/Vol] 23 mg/dL 7 - 25 mg/dL [facility] Urea nitrogen/Creatinine [Mass ratio] 26 mg/mg [facility] Anion gap [Moles/Vol] 12 mmol/L Normal 7-17 [facility] Comment on above: Performed By: #### ROMINA HUYNH ####[facility] (DEFAULT)[address] [place] [address] Chloride [Moles/Vol] 102 mmol/L Normal 98-108 [facility] Comment on above: Performed By: #### SHERLEY HUYNH7 ####[facility] (DEFAULT)[address] [place] [address] CO2 [Moles/Vol] 24 mmol/L Normal 21-31 [facility] Comment on above: Performed By: #### SHERLEY HUYNH7 ####[facility] (DEFAULT)[address] [place] [address] Creatinine [Mass/Vol] 0.90 mg/dL Normal 0.70-1.30 [facility] Comment on above: Performed By: #### SHERLEY HUYNH7 ####[facility] (DEFAULT)[address] [place] [address] eGFR, CKD-EPI, Male > Normal >=60 [facility] Comment on above: Result Comment: Repo rted eGFR is based on the CKD-EPI 2020 equation using creatinine, age, and sex. Performed By: #### H JAKE CHM7 ####[facility] (DEFAULT)[address] [place] [address] Glucose [Mass/Vol] 128 mg/dL Normal Nonfastin -179 mg/dL; Fastin-99 [facility] Comment on above: Performed By: #### H JAKE CHM7 ####[facility] (DEFAULT)[address] [place] [address] Osmolality [Osmolality] 287 mosm/kg Normal 278-305 [facility] Comment on above: Performed By: #### H JAKE, CHM7 ####[facility] (DEFAULT)[address] [place] [address] Potassium [Moles/Vol] 4.2 mmol/L Normal 3.5-5.0 [facility] Comment on above: Performed By: #### H JAKE, CHM7 ####[facility] (DEFAULT)[address] [place] [address] Sodium [Moles/Vol] 134 mmol/L Low 135-145 [facility] Comment on above: Performed By: #### H JAKE, CHM7 ####[facility] (DEFAULT)[address] [place] [address] Urea nitrogen [Mass/Vol] 23 mg/dL Normal 7-25 [facility] Comment on above: Performed By: #### H JAKE, CHM7 ####[facility] (DEFAULT)[address] [place] [address] Urea nitrogen/Creatinine [Mass ratio] 26 mg/mg Normal [facility] Comment on above: Performed By: #### H JAKE, CHM7 ####[facility] (DEFAULT)[address] [place] [address] HEPATIC FUNCTION PANELon Albumin [Mass/Vol] 3.3 g/dL Low 3.5 - 5.0 g/dL [facility] ALP [Catalytic activity/Vol] 613 U/L High 32 - 126 U/L [facility] ALT [Catalytic activity/Vol] 7 U/L Low 10 - 52 U/L [facility] AST [Catalytic activity/Vol] 16 U/L 10 - 39 U/L [facility] Bilirubin [Mass/Vol] 0.3 mg/dL NINF - 1.5 mg/dL [facility] Bilirubin.direct [Mass/Vol] 0.1 mg/dL NINF - 0.3 mg/dL [facility] Protein [Mass/Vol] 6.5 g/dL 6.4 - 8.3 g/dL [facility] Albumin [Mass/Vol] 3.3 g/dL Low 3.5-5.0 [facility] Comment on above: Performed By: #### H JAKE, CHM7 ####[facility] (DEFAULT)[address] [place] [address] ALP [Catalytic activity/Vol] 613 U/L High 32-126 [facility] Comment on above: Performed By: #### H JAKE, CHM7 ####[facility] (DEFAULT)[address] [place] [address] ALT [Catalytic activity/Vol] 7 U/L Low 10-52 [facility] Comment on above: Performed By: #### H FP, CHM7 ####[facility] (DEFAULT)[address] [place] [address] AST [Catalytic activity/Vol] 16 U/L Normal 10-39 [facility] Comment on above: Performed By: #### H FP, CHM7 ####[facility] (DEFAULT)[address] [place] [address] Bilirubin [Mass/Vol] 0.3 mg/dL Normal <1.5 [facility] Comment on above: Performed By: #### H ROMINA JOSEPH ####[facility] (DEFAULT)[address] [place] [address] Bilirubin.indirect [Mass/Vol] 0.1 mg/dL Normal <0.3 [facility] Comment on above: Performed By: #### ROMINA HUYNH ####[facility] (DEFAULT)[address] [place] [address] Protein [Mass/Vol] 6.5 g/dL Normal 6.4-8.3 [facility] Comment on above: Performed By: #### SHERLEY HUYNH7 ####[facility] (DEFAULT)[address] [place] [address], [place] [address] MANUAL DIFFon 12-31-2024 Band form neutrophils/100 WBC (Bld) 0.9 % [facility] Basophils (Bld) [#/Vol] 0.04 10*3/uL 0.00 - 0.09 K/uL [facility] Basophils/100 WBC (Bld) 1.7 % [facility] Differential cell count method Nom (Bld) Manual Differential [facility] Eosinophils (Bld) [#/Vol] 0.00 10*3/uL [facility] Eosinophils/100 WBC (Bld) 0.0 % [facility] Lymphocytes (Bld) [#/Vol] 0.89 10*3/uL 0.83 - 3.57 K/uL [facility] Lymphocytes/100 WBC (Bld) 41.0 % [facility] Monocytes (Bld) [#/Vol] 0.26 10*3/uL 0.24 - 0.93 K/uL [facility] Monocytes/100 WBC (Bld) 12.0 % [facility] Neutrophils (Bld) [#/Vol] 0.98 10*3/uL Low 1.57 - 6.19 K/uL [facility] Nucleated RBC/100 WBC (Bld) [Ratio] 1.0 % High [facility] Platelets Estimate (Bld) [#/Vol] Automated platelet count confirmed by manual slide review [facility] RBC morphology finding Nom (Bld) RBC INDICES CONFIRMED WITH MANUAL SLIDE REVIEW [facility] Segmented neutrophils/100 WBC (Bld) 44.4 % [facility] Comment on above: Dohle bodies present &XD&&XA&Toxic granulation present No Panel Informationon 12-31 Interpretation and review of laboratory results Abnormal [facility] Interpretation and review of laboratory results Abnormal [facility] TACROLIMUS LEVEL, TROUGH (NE E DRUG LEVEL)on 12-31-2024 Tacrolimus (Bld) [Mass/Vol] 7.7 ng/mL Bone Marrow Transplant: 5.0-15.0 Kidney/Pancre atic Transplant: 0 to 3 months: 8.0-10.0, 3 to 12 months: 6.0-8.0, >12 months: 4.0-6.0 [facility] Method performed is a chemiluminescent microparticle immunoasssay on the [employer]. The range is based on experience at [facility] and users should be aware that target concentrations vary widely depending on concomitant therapy, time post-transplant, and desired degree of immunosuppression. [facility] Tacrolimus, Trough 7.7 ng/mL Normal Bone Veronique ow Transplant: 5.0-15.0 Kidney/Pancre atic Transplant: 0 to 3 months: 8.0-10.0, 3 to 12 months: 6.0-8.0, >12 months: 4.0-6.0 [facility] Comment on above: Order Comment: Pleas e draw at specified interval PRIOR to dose. Do not hold dose to wait for level. Specimens batched twice per day, (M-F) and once per day weekendsMethod performed is a chemiluminescent microparticle immunoasssay on the [employer].The range is based on experience at [facility] and users should be aware that target concentrations vary widely depending on concomitant therapy, time post-transplant, and desired degree of immunosuppression. Performed By: #### T ACRO ####[facility] (DEFAULT)[address] [place] [address] CBC AND ELECTRONIC DIFFon Erythrocyte distribution width (RBC) [Ratio] 17.5 % High 10.9 - 14.3 % [facility] Hematocrit (Bld) [Volume fraction] 31.5 % Low 39.6 - 48.8 % [facility] Hemoglobin (Bld) [Mass/Vol] 9.9 g/dL Low 13.4 - 16.8 g/dL [facility] MCH (RBC) [Entitic mass] 28.2 pg 26.1 - 33.3 pg [facility] [facility] MCHC (RBC) [Mass/Vol] 31.4 g/dL Low 31.9 - 36.5 g/dL [facility] MCV (RBC) [Entitic vol] 89.7 fL 79.0 - 94.5 fL [facility] Platelet mean volume (Bld) [Entitic vol] 10.3 fL 8.7 - 12.3 fL [facility] Platelets (Bld) [#/Vol] 455 10*3/uL High 146 - 337 K/uL [facility] RBC (Bld) [#/Vol] 3.51 10*6/uL Low [facility] WBC (Bld) [#/Vol] 2.22 10*3/uL Low 3.73 - 10. 10 K/uL [facility] Hematocrit (Bld) [Volume fraction] 31.5 % Low 39.6-48.8 [facility] Comment on above: Performed By: #### L [id number] ####[facility] (DEFAULT)[address] [place] [address] Hemoglobin (Bld) [Mass/Vol] 9.9 g/dL Low 13.4-16.8 [facility] Comment on above: Performed By: #### L [id number] ####[facility] (DEFAULT)[address] [place] [address] MCV (RBC) [Entitic vol] 89.7 fL Normal 79.0-94.5 [facility] Comment on above: Performed By: #### L [id number] ####[facility] (DEFAULT)[address] [place] [address] Mean Cell Hgb 28.2 pg Normal 26.1-33.3 [facility] Comment on above: Performed By: #### L [id number] ####[facility] (DEFAULT)[address] [place] [address] Mean Cell Hgb Conc 31.4 g/dL Low 31.9-36.5 [facility] Comment on above: Performed By: #### L [id number] ####[facility] (DEFAULT)[address] [place] [address] Platelet mean volume (Bld) [Entitic vol] 10.3 fL Normal 8.7-12.3 [facility] Comment on above: Performed By: #### L [id number] ####[facility] (DEFAULT)[address] [place] [address] Platelets (Bld) [#/Vol] 455 10*3/uL High 146-337 [facility] Comment on above: Performed By: #### L [id number] ####[facility] (DEFAULT)[address] [place] [address] RBC (Bld) [#/Vol] 3.51 10*6/uL Low 4.38-5.83 [facility] Comment on above: Performed By: #### L [id number] ####[facility] (DEFAULT)[address] [place] [address] RBC Distribution 17.5 % High 10.9-14.3 [facility] Comment on above: Performed By: #### L [id number] ####[facility] (DEFAULT)[address] [place] [address] WBC (Bld) [#/Vol] 2.22 10*3/uL Low 3.73-10.10 [facility] Comment on above: Performed By: #### L AB980 ####[facility] (DEFAULT)[address] [place] [address] CHEM 7 (LYTES,BUN,CREA,GLUC) on 12-30-2024 Anion gap [Moles/Vol] 15 mmol/L 7 - 17 mmol/L [facility] Chloride [Moles/Vol] 102 mmol/L 98 - 10 8 mmol/L [facility] CO2 [Moles/Vol] 22 mmol/L 21 - 31 mmol/L [facility] Creatinine [Mass/Vol] 0.89 mg/dL 0.70 - 1.30 mg/dL [facility] eGFR, CKD-EPI, Male - PINF [facility] Comment on above: Reported eGFR is bas ed on the CKD-EPI 2020 equation using creatinine, age, and sex. Glucose [Mass/Vol] 89 mg/dL 70 - 179 mg/dL [facility] Osmolality Calc [Osmolality] 286 [facility] Potassium [Moles/Vol] 4.8 mmol/L 3.5 - 5.0 mmol/L [facility] Sodium [Moles/Vol] 134 mmol/L Low 135 - 145 mmol/L [facility] Urea nitrogen [Mass/Vol] 23 mg/dL 7 - 25 mg/dL [facility] Urea nitrogen/Creatinine [Mass ratio] 26 mg/mg [facility] Anion gap [Moles/Vol] 15 mmol/L Normal 7-17 [facility] Comment on above: Performed By: #### H JAKE, CHM7 ####[facility] (DEFAULT)[address] [place] [address] Chloride [Moles/Vol] 102 mmol/L Normal 98-108 [facility] Comment on above: Performed By: #### H FP, CHM7 ####[facility] (DEFAULT)[address] [place] [address] CO2 [Moles/Vol] 22 mmol/L Normal 21-31 [facility] Comment on above: Performed By: #### H YISSEL JOSEPHM7 ####[facility] (DEFAULT)[address] [place] [address] Creatinine [Mass/Vol] 0.89 mg/dL Normal 0.70-1.30 [facility] Comment on above: Performed By: #### H JAKE CHM7 ####[facility] (DEFAULT)[address] [place] [address] eGFR, CKD-EPI, Male > Normal >=60 [facility] Comment on above: Result Comment: Repo rted eGFR is based on the CKD-EPI 2020 equation using creatinine, age, and sex. Performed By: #### H SHERLEY JOSEPH7 ####[facility] (DEFAULT)[address] [place] [address] Glucose [Mass/Vol] 89 mg/dL Normal Nonfastin -179 mg/dL; Fastin-99 [facility] Comment on above: Performed By: #### H YISSEL JOSEPHM7 ####[facility] (DEFAULT)[address] [place] [address] Osmolality [Osmolality] 286 mosm/kg Normal 278-305 [facility] Comment on above: Performed By: #### H JAKE CHM7 ####[facility] (DEFAULT)[address] [place] [address] Potassium [Moles/Vol] 4.8 mmol/L Normal 3.5-5.0 [facility] Comment on above: Performed By: #### H JAKE CHM7 ####[facility] (DEFAULT)[address] [place] [address] Sodium [Moles/Vol] 134 mmol/L Low 135-145 [facility] Comment on above: Performed By: #### H JAKE CHM7 ####[facility] (DEFAULT)[address] [place] [address] Urea nitrogen [Mass/Vol] 23 mg/dL Normal 7-25 [facility] Comment on above: Performed By: #### H SHERLEY JOSEPH7 ####[facility] (DEFAULT)[address] [place] [address] Urea nitrogen/Creatinine [Mass ratio] 26 mg/mg Normal [facility] Comment on above: Performed By: #### SHERLEY HUYNH7 ####[facility] (DEFAULT)[address] [place] [address] HEPATIC FUNCTION PANELon Albumin [Mass/Vol] 3.1 g/dL Low 3.5 - 5.0 g/dL [facility] ALP [Catalytic activity/Vol] 592 U/L High 32 - 126 U/L [facility] ALT [Catalytic activity/Vol] 5 U/L Low 10 - 52 U/L [facility] AST [Catalytic activity/Vol] 14 U/L 10 - 39 U/L [facility] Bilirubin [Mass/Vol] 0.3 mg/dL [facility] mg/dL [facility] Bilirubin.direct [Mass/Vol] 0.1 mg/dL [facility] - 0.[facility] mg/dL [facility] Protein [Mass/Vol] 5.8 g/dL Low 6.4 - 8.3 g/dL [facility] Albumin [Mass/Vol] 3.1 g/dL Low 3.5-5.0 [facility] Comment on above: Performed By: #### H SHERLEY JOSEPH7 ####[facility] (DEFAULT)[address] [place] [address] ALP [Catalytic activity/Vol] 592 U/L High 32-126 [facility] Comment on above: Performed By: #### H JAKE, CHM7 ####[facility] (DEFAULT)[address] [place] [address] ALT [Catalytic activity/Vol] 5 U/L Low 10-52 [facility] Comment on above: Performed By: #### H ROMINA JOSEPH ####[facility] (DEFAULT)[address] [place] [address] AST [Catalytic activity/Vol] 14 U/L Normal 10-39 [facility] Comment on above: Performed By: #### Gurjit JOSEPH, YISSELM7 ####[facility] (DEFAULT)[address] [place] [address] Bilirubin [Mass/Vol] 0.3 mg/dL Normal <1.5 [facility] Comment on above: Performed By: #### Gurjit JOSEPH, SHERLEY7 ####[facility] (DEFAULT)[address] [place] [address] Bilirubin.indirect [Mass/Vol] 0.1 mg/dL Normal <0.3 [facility] Comment on above: Performed By: #### Gurjit JOSEPH, YISSELM7 ####[facility] (DEFAULT)[address] [place] [address] Protein [Mass/Vol] 5.8 g/dL Low 6.4-8.3 [facility] Comment on above: Performed By: #### Gurjit JOSEPH, CHM7 ####[facility] (DEFAULT)[address] [place] [address] MANUAL DIFFon 12-30-2024 Band form neutrophils/100 WBC (Bld) 0.8 % [facility] Basophils (Bld) [#/Vol] 0.00 10*3/uL 0.00 - 0.09 K/uL [facility] Basophils/100 WBC (Bld) 0.0 % [facility] Differential cell count method Nom (Bld) Manual Differential [facility] Eosinophils (Bld) [#/Vol] 0.00 10*3/uL [facility] Eosinophils/100 WBC (Bld) 0.0 % [facility] Lymphocytes (Bld) [#/Vol] 0.72 10*3/uL Low 0.83 - 3.57 K/uL [facility] Lymphocytes/100 WBC (Bld) 32.5 % [facility] Metamyelocytes (Bld) [#/Vol] 0.02 10*3/uL NINF - 0.07 K/uL [facility] Metamyelocytes.neutro philic/100 WBC Manual cnt (Bld) 0.8 % [facility] Monocytes (Bld) [#/Vol] 0.44 10*3/uL 0.24 - 0.93 K/uL [facility] Monocytes/100 WBC (Bld) 20.0 % [facility] Neutrophils (Bld) [#/Vol] 1.04 10*3/uL Low 1.57 - 6.19 K/uL [facility] Ovalocytes LM Ql (Bld) Present Abnormal (none) [facility] Platelets Estimate (Bld) [#/Vol] Automated platelet count confirmed by manual slide review [facility] RBC morphology finding Nom (Bld) RBC INDICES CONFIRMED WITH MANUAL SLIDE REVIEW [facility] Segmented neutrophils/100 WBC (Bld) 45.9 % [facility] Target cells LM Ql (Bld) Present Abnormal (none) [facility] MR Abdomen WO and W contrast Matthew [...] duct approximately 8 mm with distal tapering. [facility] Radiology Study observation (narrative) [facility] MR Abdomen WO and W contrast IVOrdered By: Roman Kelly on 12-30-2024 [facility] Work Phone: MRI ABDOMEN WITH AND WITHOUT CONTRASTon 12-30-2024 MRI ABDOMEN WITH AND WITHOUT CONTRAST Normal [facility] No Panel Informationon 12-30 Interpretation and review of laboratory results Abnormal [facility] Interpretation and review of laboratory results Abnormal [facility] TACROLIMUS LEVEL, TROUGH (NE E DRUG LEVEL)on 12-30-2024 Tacrolimus (Bld) [Mass/Vol] 6.4 ng/mL Bone Marrow Transplant: 5.0-15.0 Kidney/Pancre atic Transplant: 0 to 3 months: 8.0-10.0, 3 to 12 months: 6.0-8.0, >12 months: 4.0-6.0 [facility] Method performed is a chemiluminescent microparticle immunoasssay on the [employer] I. The range is based on experience at [facility] and users should be aware that target concentrations vary widely depending on concomitant therapy, time post-transplant, and desired degree of immunosuppression. [facility] Tacrolimus, Trough 6.4 ng/mL Normal Bone Veronique ow Transplant: 5.0-15.0 Kidney/Pancre atic Transplant: 0 to 3 months: 8.0-10.0, 3 to 12 months: 6.0-8.0, >12 months: 4.0-6.0 [facility] Comment on above: Order Comment: Pleas e draw at specified interval PRIOR to dose. Do not hold dose to wait for level. Specimens batched twice per day, (M-F) and once per day weekendsMethod performed is a chemiluminescent microparticle immunoasssay on the [employer] I.The range is based on experience at [facility] and users should be aware that target concentrations vary widely depending on concomitant therapy, time post-transplant, and desired degree of immunosuppression. Performed By: #### T ACRO ####[facility] (DEFAULT)[address] [place] [address] CALCIUMon 12-29-2024 Calcium [Mass/Vol] 8.5 mg/dL Low 8.6 - 10. 5 mg/dL [facility] Cal[facility] [Mass/Vol] 8.5 mg/dL Low 8.6-10.5 [facility] Comment on above: Performed By: #### I PB, HFP, CHM7, MGO, CA ####[facility] (DEFAULT)[address] [place] [address] CBC AND ELECTRONIC DIFFon Erythrocyte distribution width (RBC) [Ratio] 17.3 % High 10.9 - 14.3 % [facility] Hematocrit (Bld) [Volume fraction] 32.3 % Low 39.6 - 48.8 % [facility] Hemoglobin (Bld) [Mass/Vol] 10.1 g/dL Low 13.4 - 16.8 g/dL [facility] MCH (RBC) [Entitic mass] 27.5 pg 26.1 - 33.3 pg [facility] MCHC (RBC) [Mass/Vol] 31.3 g/dL Low 31.9 - 36.5 g/dL [facility] MCV (RBC) [Entitic vol] 88.0 fL 79.0 - 94.5 fL [facility] Platelet mean volume (Bld) [Entitic vol] 9.7 fL 8.7 - 12.3 fL [facility] Comment on above: This is an appended report. These results have been appended to a previously preliminary verified report. Platelets (Bld) [#/Vol] 487 10*3/uL High 146 - 337 K/uL [facility] Comment on above: This is an appended report. These results have been appended to a previously preliminary verified report. RBC (Bld) [#/Vol] 3.67 10*6/uL Low [facility] WBC (Bld) [#/Vol] 2.46 10*3/uL Low 3.73 - 10. 10 K/uL [facility] Hematocrit (Bld) [Volume fraction] 32.3 % Low 39.6-48.8 [facility] Comment on above: Performed By: #### L [id number] ####[facility] (DEFAULT)[address] [place] [id number] Hemoglobin (Bld) [Mass/Vol] 10.1 g/dL Low 13.4-16.8 [facility] Comment on above: Performed By: #### L [id number] ####[facility] (DEFAULT)[address] [place] [id number] MCV (RBC) [Entitic vol] 88.0 fL Normal 79.0-94.5 [facility] Comment on above: Performed By: #### L AB980 ####[facility] (DEFAULT)[address] [place] [address], [place] [address] Mean Cell Hgb 27.5 pg Normal 26.1-33.3 [facility] Comment on above: Performed By: #### L AB980 ####[facility] (DEFAULT)[address] [place] [address] Mean Cell Hgb Conc 31.3 g/dL Low 31.9-36.5 [facility] Comment on above: Performed By: #### L AB980 ####[facility] (DEFAULT)[address] [place] [address] Platelet mean volume (Bld) [Entitic vol] 9.7 fL Normal 8.7-12.3 [facility] Comment on above: Result Comment: This is an appended report. These results have been appended to a previously preliminary verified report. Performed By: #### L [id number] ####[facility] (DEFAULT)[address] [place] [address] Platelets (Bld) [#/Vol] 487 10*3/uL High 146-337 [facility] Comment on above: Result Comment: This is an appended report. These results have been appended to a previously preliminary verified report. Performed By: #### L [id number] ####[facility] (DEFAULT)[address] [place] [address] RBC (Bld) [#/Vol] 3.67 10*6/uL Low 4.38-5.83 [facility] Comment on above: Performed By: #### L AB980 ####[facility] (DEFAULT)[address] [place] [address] RBC Distribution 17.3 % High 10.9-14.3 [facility] Comment on above: Performed By: #### L AB980 ####[facility] (DEFAULT)[address] [place] [address] WBC (Bld) [#/Vol] 2.46 10*3/uL Low 3.73-10.10 [facility] Comment on above: Performed By: #### L AB980 ####[facility] (DEFAULT)[address] [place] [address] CHEM 7 (LYTES,BUN,CREA,GLUC) on 12-29-2024 Anion gap [Moles/Vol] 13 mmol/L 7 - 17 mmol/L [facility] Chloride [Moles/Vol] 104 mmol/L 98 - 10 8 mmol/L [facility] CO2 [Moles/Vol] 26 mmol/L 21 - 31 mmol/L [facility] Creatinine [Mass/Vol] 1.03 mg/dL 0.70 - 1.30 mg/dL [facility] eGFR, CKD-EPI, Male 82 - PINF [facility] Comment on above: Reported eGFR is bas ed on the CKD-EPI 2020 equation using creatinine, age, and sex. Glucose [Mass/Vol] 97 mg/dL 70 - 179 mg/dL [facility] Osmolality Calc [Osmolality] 296 [facility] Potassium [Moles/Vol] 4.6 mmol/L 3.5 - 5.0 mmol/L [facility] Sodium [Moles/Vol] 138 mmol/L 135 - 145 mmol/L [facility] Urea nitrogen [Mass/Vol] 29 mg/dL High 7 - 25 mg/dL [facility] Urea nitrogen/Creatinine [Mass ratio] 28 mg/mg [facility] Anion gap [Moles/Vol] 13 mmol/L Normal 7-17 [facility] Comment on above: Performed By: #### I PB, HFP, CHM7, MGO, CA ####[facility] (DEFAULT)[address] [place] [address] Chloride [Moles/Vol] 104 mmol/L Normal 98-108 [facility] Comment on above: Performed By: #### I PB, HFP, CHM7, MGO, CA ####[facility] (DEFAULT)[address] [place] [address] CO2 [Moles/Vol] 26 mmol/L Normal 21-31 [facility] Comment on above: Performed By: #### I PB, HFP, CHM7, MGO, CA ####[facility] (DEFAULT)[address] [place] [address] Creatinine [Mass/Vol] 1.03 mg/dL Normal 0.70-1.30 [facility] Comment on above: Performed By: #### I PB, HFP, CHM7, MGO, CA ####[facility] (DEFAULT)[address] [place] [address] GFR/1.73 sq M.predicted among non-blacks MDRD (S/P/Bld) [Vol rate/Area] 83 mL/min/{1.73_m2} Normal >=60 [facility] Comment on above: Result Comment: Repo rted eGFR is based on the CKD-EPI 2020 equation using creatinine, age, and sex. Performed By: #### I PB, HFP, CHM7, MGO, CA ####[facility] (DEFAULT)[address] [place] [address] Glucose [Mass/Vol] 97 mg/dL Normal Nonfastin -179 mg/dL; Fastin-99 [facility] Comment on above: Performed By: #### I PB, HFP, CHM7, MGO, CA ####[facility] (DEFAULT)[address] [place] [address] Osmolality [Osmolality] 296 mosm/kg Normal 278-305 [facility] Comment on above: Performed By: #### I PB, HFP, CHM7, MGO, CA ####[facility] (DEFAULT)[address] [place] [address] Potassium [Moles/Vol] 4.6 mmol/L Normal 3.5-5.0 [facility] Comment on above: Performed By: #### I PB, HFP, CHM7, MGO, CA ####[facility] (DEFAULT)[address] [place] [address] Sodium [Moles/Vol] 138 mmol/L Normal 135-145 [facility] Comment on above: Performed By: #### I PB, HFP, CHM7, MGO, CA ####[facility] (DEFAULT)[address] [place] [address] Urea nitrogen [Mass/Vol] 29 mg/dL High 7-25 [facility] Comment on above: Performed By: #### I PB, HFP, CHM7, MGO, CA ####[facility] (DEFAULT)[address] [facility] [place] [address] Urea nitrogen/Creatinine [Mass ratio] 28 mg/mg Normal [facility] Comment on above: Performed By: #### I PB, HFP, CHM7, MGO, CA ####[facility] (DEFAULT)[address] [place] [address] CMV BY PCR, QUANTITATIVE, BL OODOrdered By: Maryanne Barrow on 12-29-2024 CMV DNA JACKY+probe (P) [Log units/Vol] [facility] Comment on above: CMV Not Detected CMV DNA JACKY+probe (P) [Log units/Vol] Not detected Not Detected [facility] CMV DNA JACKY+probe Qn (P) [facility] Comment on above: CMV Not Detected Interpretation and review of laboratory results Normal [facility] This test was perfor med using a real time PCR assay. The dynamic range for this assay is 34.5-10,000,000 IU/mL (1.54-7.00 Log IU/mL). [facility] EBV BY PCR, QUANTITATIVE,BLO ODon 12-29-2024 EBV DNA JACKY+probe (Bld) [Log units/Vol] [facility] Comment on above: EBV Not Detected EBV DNA JACKY+probe (Unsp spec) [#/Vol] [facility] Comment on above: EBV Not Detected EBV DNA JACKY+probe (Unsp spec) [#/Vol] Not detected Not Detected [facility] Interpretation and review of laboratory results Normal [facility] This test was perfor med using a real time PCR assay. The dynamic range for this assay is 35-100,000,000 IU/mL (1.54-8.00 Log IU/mL). [facility] GENERAL PROCEDUREon 12-30-19 [facility] Radiology Study observation (narrative) [facility] HEPATIC FUNCTION PANELon Albumin [Mass/Vol] 3.2 g/dL Low 3.5 - 5.0 g/dL [facility] ALP [Catalytic activity/Vol] 628 U/L High 32 - 126 U/L [facility] ALT [Catalytic activity/Vol] 6 U/L Low 10 - 52 U/L [facility] AST [Catalytic activity/Vol] 10 U/L 10 - 39 U/L [facility] Bilirubin [Mass/Vol] 0.3 mg/dL NINF - 1.5 mg/dL [facility] Bilirubin.direct [Mass/Vol] 0.1 mg/dL NINF - 0.3 mg/dL [facility] Protein [Mass/Vol] 6.1 g/dL Low 6.4 - 8.3 g/dL [facility] Albumin [Mass/Vol] 3.2 g/dL Low 3.5-5.0 [facility] Comment on above: Performed By: #### I PB, HFP, CHM7, MGO, CA ####[facility] (DEFAULT)[address] [place] [address] ALP [Catalytic activity/Vol] 628 U/L High 32-126 [facility] Comment on above: Performed By: #### I PB, HFP, CHM7, MGO, CA ####[facility] (DEFAULT)[address] [place] [address] ALT [Catalytic activity/Vol] 6 U/L Low 10-52 [facility] Comment on above: Performed By: #### I PB, HFP, CHM7, MGO, CA ####[facility] (DEFAULT)[address] [place] [address] AST [Catalytic activity/Vol] 10 U/L Normal 10-39 [facility] Comment on above: Performed By: #### I PB, HFP, CHM7, MGO, CA ####[facility] (DEFAULT)[address] [place] [address] Bilirubin [Mass/Vol] 0.3 mg/dL Normal <1.5 [facility] Comment on above: Performed By: #### I PB, HFP, CHM7, MGO, CA ####[facility] (DEFAULT)[address] [place] [address] Bilirubin.indirect [Mass/Vol] 0.1 mg/dL Normal <0.3 [facility] Comment on above: Performed By: #### I PB, HFP, CHM7, MGO, CA ####[facility] (DEFAULT)[address] [place] [address] Protein [Mass/Vol] 6.1 g/dL Low 6.4-8.3 [facility] Comment on above: Performed By: #### I PB, HFP, CHM7, MGO, CA ####[facility] (DEFAULT)[address] [place] [address] INSERTION CVC TUNNELEDon INSERTION CVC TUNNELED Normal [facility] IMPRESSION: Successf ul placement of a [...] 0 Route: Intravenous; 11:15 AM 12/29/24 Lidocaine-epinephrine 1%-1:[id number] injection Ordered and Given 3 mL Given [...] medication(s), I spent 15 minutes of continuous udzt-kv-hauh time with the patient. TIME OUT: Prior [...] guidance the vein was accessed and a 5-Zimbabwean dilator was placed. An image was saved [...] 0 Route: Intravenous; 11:15 AM 12/29/24 Lidocaine-epinephrine 1%-1:500388 injection Ordered and Given 3 mL Given [...] medication(s), I spent 15 minutes of continuous bmbn-fg-dvjx time with the patient. TIME OUT: Prior [...] guidance the vein was accessed and a 5-Zimbabwean dilator was placed. An image was saved [...] I have reviewed and approved this report. [facility] Radiology Study observation (narrative) [facility] MAGNESIUMon 12-29-2024 Magnesium [Mass/Vol] 1.9 mg/dL 1.6 - 2 .6 mg/dL [facility] Magnesium [Mass/Vol] 1.9 mg/dL Normal 1.6-2.6 [facility] Comment on above: Performed By: #### I PB, HFP, CHM7, MGO, CA ####[facility] (DEFAULT)[address] [place] [address] MANUAL DIFFon 12-29-2024 Band form neutrophils/100 WBC (Bld) 0.0 % [facility] Basophils (Bld) [#/Vol] 0.04 10*3/uL 0.00 - 0.09 K/uL [facility] Basophils/100 WBC (Bld) 1.7 % [facility] Nabila cells LM Ql (Bld) Present Abnormal (none) [facility] Differential cell count method Nom (Bld) Manual Differential [facility] Eosinophils (Bld) [#/Vol] 0.00 10*3/uL [facility] Eosinophils/100 WBC (Bld) 0.0 % [facility] Lymphocytes (Bld) [#/Vol] 0.93 10*3/uL 0.83 - 3.57 K/uL [facility] Lymphocytes/100 WBC (Bld) 37.9 % [facility] Monocytes (Bld) [#/Vol] 0.28 10*3/uL 0.24 - 0.93 K/uL [facility] Monocytes/100 WBC (Bld) 11.2 % [facility] Neutrophils (Bld) [#/Vol] 1.21 10*3/uL Low 1.57 - 6.19 K/uL [facility] Nucleated RBC/100 WBC (Bld) [Ratio] 1.0 % High [facility] Platelets Estimate (Bld) [#/Vol] Automated platelet count confirmed by manual slide review [facility] RBC morphology finding Nom (Bld) RBC INDICES CONFIRMED WITH MANUAL SLIDE REVIEW [facility] Segmented neutrophils/100 WBC (Bld) 49.2 % [facility] Target cells LM Ql (Bld) Present Abnormal (none) [facility] No Panel Informationon 12-29 Interpretation and review of laboratory results Abnormal [facility] Interpretation and review of laboratory results Abnormal [facility] Interpretation and review of laboratory results Normal [facility] PHOSPHATE, INORGANICon 12-29 Phosphate [Mass/Vol] 2.3 mg/dL 2.2 - 4 .6 mg/dL [facility] Phosphorous 2.3 mg/dL Normal 2.2-4.6 [facility] Comment on above: Performed By: #### I PB, HFP, CHM7, MGO, CA ####[facility] (DEFAULT)[address] [place] [address] PT,INR,PTTon 12-29-2024 aPTT Coag (PPP) [Time] 30.4 s [facility] INR Coag (Bld) [Relative time] 1.2 {INR} High 0.9 - 1.1 [facility] Interpretation and review of laboratory results Abnormal [facility] PT Coag (PPP) [Time] 15.7 s High [facility] aPTT Coag (Bld) [Time] 30.4 s Normal 24.0-34.3 [facility] Comment on above: Performed By: #### P TPTT ####[facility] (DEFAULT)[address] [place] [address] INR Coag (PPP) [Relative time] 1.2 {INR} High 0.9-1.1 [facility] Comment on above: Performed By: #### P TPTT ####[facility] (DEFAULT)[address] [place] [address] PT Coag (PPP) [Time] 15.7 s High 11.9-14.2 [facility] Comment on above: Performed By: #### P TPTT ####[facility] (DEFAULT)[address] [place] [address] TACROLIMUS LEVEL, TROUGH (NE E DRUG LEVEL)on 12-29-2024 Tacrolimus (Bld) [Mass/Vol] 6.9 ng/mL Bone Marrow Transplant: 5.0-15.0 Kidney/[facility] Transplant: 0 to 3 months: 8.0-10.0, 3 to 12 months: 6.0-8.0, >12 months: 4.0-6.0 [facility] Method performed is a chemiluminescent microparticle immunoasssay on the [employer] I. The range is based on experience at [facility] and users should be aware that target concentrations vary widely depending on concomitant therapy, time post-transplant, and desired degree of immunosuppression. [facility] Tacrolimus, Trough 6.9 ng/mL Normal Bone Veronique ow Transplant: 5.0-15.0 Kidney/[facility] Transplant: 0 to 3 months: 8.0-10.0, 3 to 12 months: 6.0-8.0, >12 months: 4.0-6.0 [facility] Comment on above: Order Comment: Pleas e draw at specified interval PRIOR to dose. Do not hold dose to wait for level. Specimens batched twice per day, (M-F) and once per day weekendsMethod performed is a chemiluminescent microparticle immunoasssay on the [employer] I.The range is based on experience at [facility] and users should be aware that target concentrations vary widely depending on concomitant therapy, time post-transplant, and desired degree of immunosuppression. Performed By: #### T ACRO ####[facility] (DEFAULT)[address] [place] [address] CBC,PLATELETSon 12-28-2024 Erythrocyte distribution width (RBC) [Ratio] 17.6 % High 10.9 - 14.3 % [facility] Hematocrit (Bld) [Volume fraction] 32.2 % Low 39.6 - 48.8 % [facility] Hemoglobin (Bld) [Mass/Vol] 10.4 g/dL Low 13.4 - 16.8 g/dL [facility] Interpretation and review of laboratory results Abnormal [facility] MCH (RBC) [Entitic mass] 27.8 pg 26.1 - 33.3 pg [facility] MCHC (RBC) [Mass/Vol] 32.3 g/dL 31.9 - 36.5 g/dL [facility] MCV (RBC) [Entitic vol] 86.1 fL 79.0 - 94.5 fL [facility] Platelet mean volume (Bld) [Entitic vol] 9.5 fL 8.7 - 12.3 fL [facility] Platelets (Bld) [#/Vol] 524 10*3/uL High 146 - 337 K/uL [facility] RBC (Bld) [#/Vol] 3.74 10*6/uL Low [facility] WBC (Bld) [#/Vol] 2.11 10*3/uL Low 3.73 - 10. 10 K/uL [facility] Hematocrit (Bld) [Volume fraction] 32.2 % Low 39.6-48.8 [facility] Comment on above: Performed By: #### E DIF2, HEMOGC ####[facility] (DEFAULT)[address] [place] [address] Hemoglobin (Bld) [Mass/Vol] 10.4 g/dL Low 13.4-16.8 [facility] Comment on above: Performed By: #### E DIF2, HEMOGC ####[facility] (DEFAULT)[address] [place] [address] MCV (RBC) [Entitic vol] 86.1 fL Normal 79.0-94.5 [facility] Comment on above: Performed By: #### E DIF2, HEMOGC ####[facility] (DEFAULT)[address] [place] [address] Mean Cell Hgb 27.8 pg Normal 26.1-33.3 [facility] Comment on above: Performed By: #### E DIF2, HEMOGC ####[facility] (DEFAULT)[address] [place] [address] Mean Cell Hgb Conc 32.3 g/dL Normal 31.9-36.5 [facility] Comment on above: Performed By: #### E DIF2, HEMOGC ####[facility] (DEFAULT)[address] [place] [address] Platelet mean volume (Bld) [Entitic vol] 9.5 fL Normal 8.7-12.3 [facility] Comment on above: Performed By: #### E DIF2, HEMOGC ####[facility] (DEFAULT)[address] [place] [address] Platelets (Bld) [#/Vol] 524 10*3/uL High 146-337 [facility] Comment on above: Performed By: #### E DIF2, HEMOGC ####[facility] (DEFAULT)[address] [place] [address] RBC (Bld) [#/Vol] 3.74 10*6/uL Low 4.38-5.83 [facility] Comment on above: Performed By: #### E DIF2, HEMOGC ####[facility] (DEFAULT)[address] [place] [address] RBC Distribution 17.6 % High 10.9-14.3 [facility] Comment on above: Performed By: #### E DIF2, HEMOGC ####[facility] (DEFAULT)[address] [place] [address] WBC (Bld) [#/Vol] 2.11 10*3/uL Low 3.73-10.10 [facility] Comment on above: Performed By: #### E DIF2, HEMOGC ####[facility] (DEFAULT)[address] [place] [address] CHEM 7 (LYTES,BUN,CREA,GLUC) on 12-28-2024 Anion gap [Moles/Vol] 12 mmol/L 7 - 17 mmol/L [facility] Chloride [Moles/Vol] 101 mmol/L 98 - 10 8 mmol/L [facility] CO2 [Moles/Vol] 24 mmol/L 21 - 31 mmol/L [facility] Creatinine [Mass/Vol] 1.00 mg/dL 0.70 - 1.30 mg/dL [facility] eGFR, CKD-EPI, Male 86 - PINF [facility] Comment on above: Reported eGFR is bas ed on the CKD-EPI 2020 equation using creatinine, age, and sex. Glucose [Mass/Vol] 100 mg/dL 70 - 179 mg/dL [facility] Osmolality Calc [Osmolality] 286 [facility] Potassium [Moles/Vol] 4.4 mmol/L 3.5 - 5.0 mmol/L [facility] Sodium [Moles/Vol] 133 mmol/L Low 135 - 145 mmol/L [facility] Urea nitrogen [Mass/Vol] 28 mg/dL High 7 - 25 mg/dL [facility] Urea nitrogen/Creatinine [Mass ratio] 28 mg/mg [facility] Anion gap [Moles/Vol] 12 mmol/L Normal 7-17 [facility] Comment on above: Performed By: #### H FP, CHM7 ####[facility] (DEFAULT)[address] [place] [address] Chloride [Moles/Vol] 101 mmol/L Normal 98-108 [facility] Comment on above: Performed By: #### H ROMINA JOSEPH ####[facility] (DEFAULT)[address] [place] [address] CO2 [Moles/Vol] 24 mmol/L Normal 21-31 [facility] Comment on above: Performed By: #### H ROMINA JOSEPH ####[facility] (DEFAULT)[address] [place] [address] Creatinine [Mass/Vol] 1.00 mg/dL Normal 0.70-1.30 [facility] Comment on above: Performed By: #### ROMINA HUYNH ####[facility] (DEFAULT)[address] [place] [address] GFR/1.73 sq M.predicted among non-blacks MDRD (S/P/Bld) [Vol rate/Area] 86 mL/min/{1.73_m2} Normal >=60 [facility] Comment on above: Result Comment: Repo rted eGFR is based on the CKD-EPI 2020 equation using creatinine, age, and sex. Performed By: #### ROMINA HUYNH ####[facility] (DEFAULT)[address] [place] [address] Glucose [Mass/Vol] 100 mg/dL Normal Nonfastin -179 mg/dL; Fastin-99 [facility] Comment on above: Performed By: #### H SHERLEY JOSEPH7 ####[facility] (DEFAULT)[address] [place] [address] Osmolality [Osmolality] 286 mosm/kg Normal 278-305 [facility] Comment on above: Performed By: #### H SHERLEY JOSEPH7 ####[facility] (DEFAULT)[address] [place] [address] Potassium [Moles/Vol] 4.4 mmol/L Normal 3.5-5.0 [facility] Comment on above: Performed By: #### H FP, CHM7 ####[facility] (DEFAULT)[address] [place] [address] Sodium [Moles/Vol] 133 mmol/L Low 135-145 [facility] Comment on above: Performed By: #### H FP, CHM7 ####[facility] (DEFAULT)[address] [place] [address] Urea nitrogen [Mass/Vol] 28 mg/dL High 7-25 [facility] Comment on above: Performed By: #### H FP, CHM7 ####[facility] (DEFAULT)[address] [place] [address] Urea nitrogen/Creatinine [Mass ratio] 28 mg/mg Normal [facility] Comment on above: Performed By: #### H FP, CHM7 ####[facility] (DEFAULT)[address] [place] [address], [place] [address] CMV BY PCR, QUANTITATIVE, BL OODon 12-28-2024 CMV By PCR, IU/mL, Plasma <34.5 Normal <34.5 [facility] Comment on above: Order Comment: This test was performed using a real time PCR assay. The dynamic range for this assay is 34.5-10,000,000 IU/mL (1.54-7.00 Log IU/mL). Result Comment: CMV Not Detected Performed By: #### C MVPCR ####[facility] (DEFAULT)[address] [place] [address] CMV PCR Interpretation Not detected Normal Not Detected [facility] Comment on above: Order Comment: This test was performed using a real time PCR assay. The dynamic range for this assay is 34.5-10,000,000 IU/mL (1.54-7.00 Log IU/mL). Performed By: #### C MVPCR ####[facility] (DEFAULT)[address] [place] [address] CMV QUANTITATIVE BY PCR,(LOG IU/mL) < Normal <1.54 [facility] Comment on above: Order Comment: This test was performed using a real time PCR assay. The dynamic range for this assay is 34.5-10,000,000 IU/mL (1.54-7.00 Log IU/mL). Result Comment: CMV Not Detected Performed By: #### C MVPCR ####[facility] (DEFAULT)[address] [place] [address] DIAGNOSTIC UPPER ENDOSCOPYon 12-28-2024 [facility] Gastroenterology Patient Name: Jc Dunaway Procedure Date: 12/28/2024 9:29 AM Date of : 1965 Admit Type: Inpatient Age: 59 Room: [place] [address] Gender: Male Note Status: Finalized Attending MD: Johnnie Lester MD, [id number] Procedure: Upper GI endoscopy Indications: Odynophagia Providers: Johnnie Lester MD (Doctor), Nilson Larsen MD (Fellow), Loyda Hernandez RN (Nurse), Brant Mckenna RN (Nurse), Liss Boo Hedge Fund Accountant (Hedge Fund Accountant) Patient Profile: This is a 59 year [...] GI team Procedure Code(s): --- Professional --- 17334, GC, Esophagogastroduodenoscop y, flexible, transoral; with biopsy, single or multiple Diagnosis Code(s): --- Professional --- K22.9, Disease of esophagus, unspecified K44 (more content not included)... LAB, [facility] EBV BY PCR, QUANTITATIVE,BLO ODon 12-28-2024 Ebv By Pcr, Quant, Blood <35 Normal <35 [facility] Comment on above: Order Comment: This test was performed using a real time PCR assay. The dynamic range for this assay is 35-100,000,000 IU/mL (1.54-8.00 Log IU/mL). Result Comment: EBV Not Detected Performed By: #### E BVPCR ####[facility] (DEFAULT)[address] [place] [address] EBV PCR Interpretation Not detected Normal Not Detected [facility] Comment on above: Order Comment: This test was performed using a real time PCR assay. The dynamic range for this assay is 35-100,000,000 IU/mL (1.54-8.00 Log IU/mL). Performed By: #### E BVPCR ####[facility] (DEFAULT)[address] [place] [address] EBV Viral Load By PCR,(Log) < Normal <1.54 [facility] Comment on above: Order Comment: This test was performed using a real time PCR assay. The dynamic range for this assay is 35-100,000,000 IU/mL (1.54-8.00 Log IU/mL). Result Comment: EBV Not Detected Performed By: #### E BVPCR ####[facility] (DEFAULT)[address] [place] [address] ELECTRONIC DIFFon 12-28-2024 Basophils (Bld) [#/Vol] [facility] Basophils/100 WBC (Bld) [facility] Eosinophils (Bld) [#/Vol] [facility] Eosinophils/100 WBC (Bld) [facility] Immature granulocytes (Bld) [#/Vol] [facility] Immature granulocytes/100 WBC (Bld) [facility] Lymphocytes (Bld) [#/Vol] [facility] Lymphocytes/100 WBC (Bld) [facility] Monocytes (Bld) [#/Vol] [facility] Monocytes/100 WBC (Bld) [facility] Neutrophils/100 WBC (Bld) [facility] Nucleated RBC/100 WBC (Bld) [Ratio] [facility] Segmented neutrophils/100 WBC (Bld) [facility] Abs Baso Auto Normal [facility] Comment on above: Performed By: #### E DIF2, HEMOGC ####[facility] (DEFAULT)[address] [place] [address] Abs E[address] Auto Normal [facility] Comment on above: Performed By: #### E DIF2, HEMOGC ####[facility] (DEFAULT)[address] [place] [address] Abs Lymph Auto Normal [facility] Comment on above: Performed By: #### E DIF2, HEMOGC ####[facility] (DEFAULT)[address] [place] [address] Abs [place] Auto Normal [facility] Comment on above: Performed By: #### E DIF2, HEMOGC ####[facility] (DEFAULT)[address] [place] [address] Basophil % Auto Normal [facility] Comment on above: Performed By: #### E DIF2, HEMOGC ####[facility] (DEFAULT)[address] [place] [address] Eosinophil % Auto Normal [facility] Comment on above: Performed By: #### E DIF2, HEMOGC ####[facility] (DEFAULT)[address] [place] [address] Immature Grans % Normal [facility] Comment on above: Performed By: #### E DIF2, HEMOGC ####[facility] (DEFAULT)[address] [place] [address] Immature Grans Absolute Normal [facility] Comment on above: Performed By: #### E DIF2, HEMOGC ####[facility] (DEFAULT)[address] [place] [address] Lymphocyte % Auto Normal [facility] Comment on above: Performed By: #### E DIF2, HEMOGC ####[facility] (DEFAULT)[address] [facility] [place] [address] Monocyte % Auto Normal [facility] Comment on above: Performed By: #### E DIF2, HEMOGC ####[facility] (DEFAULT)[address] [place] [address] [facility] Comment on above: Performed By: #### E DIF2, HEMOGC ####[facility] (DEFAULT)[address] [place] [address] Segs + Bands Auto Normal [facility] Comment on above: Performed By: #### E DIF2, HEMOGC ####[facility] (DEFAULT)[address] [place] [address] Segs + Bands,Absolute Auto Normal [facility] Comment on above: Performed By: #### E DIF2, HEMOGC ####[facility] (DEFAULT)[address] [place] [address] HEPATIC FUNCTION PANELon Albumin [Mass/Vol] 3.1 g/dL Low 3.5 - 5.0 g/dL [facility] ALP [Catalytic activity/Vol] 683 U/L High 32 - 126 U/L [facility] ALT [Catalytic activity/Vol] 5 U/L Low 10 - 52 U/L [facility] AST [Catalytic activity/Vol] 12 U/L 10 - 39 U/L [facility] Bilirubin [Mass/Vol] 0.4 mg/dL [facility] 1.[facility] mg/dL [facility] Bilirubin.direct [Mass/Vol] 0.1 mg/dL NINF - 0.3 mg/dL [facility] Protein [Mass/Vol] 5.9 g/dL Low 6.4 - 8.3 g/dL [facility] Albumin [Mass/Vol] 3.1 g/dL Low 3.5-5.0 [facility] Comment on above: Performed By: #### H FP, CHM7 ####[facility] (DEFAULT)[address] [place] [address] ALP [Catalytic activity/Vol] 683 U/L High 32-126 [facility] Comment on above: Performed By: #### Gurjit JOSEPH, CHMalinda7 ####[facility] (DEFAULT)[address] [place] [address] ALT [Catalytic activity/Vol] 5 U/L Low 10-52 [facility] Comment on above: Performed By: #### Gurjit JOSEPH, YISSELM7 ####[facility] (DEFAULT)[address] [place] [address] AST [Catalytic activity/Vol] 12 U/L Normal 10-39 [facility] Comment on above: Performed By: #### Gurjit JOSEPH, CHMalinda7 ####[facility] (DEFAULT)[address] [place] [address] Bilirubin [Mass/Vol] 0.4 mg/dL Normal <1.5 [facility] Comment on above: Performed By: #### Gurjit JOSEPH, CHM7 ####[facility] (DEFAULT)[address] [place] [address] Bilirubin.indirect [Mass/Vol] 0.1 mg/dL Normal <0.3 [facility] Comment on above: Performed By: #### Gurjit JOSEPH, CHM7 ####[facility] (DEFAULT)[address] [place] [address] Protein [Mass/Vol] 5.9 g/dL Low 6.4-8.3 [facility] Comment on above: Performed By: #### H JAKE, CHM7 ####[facility] (DEFAULT)[address] [place] [address] MANUAL DIFFon 12-28-2024 Band form neutrophils/100 WBC (Bld) 0.0 % [facility] Basophils (Bld) [#/Vol] 0.00 10*3/uL 0.00 - 0.09 K/uL [facility] Basophils/100 WBC (Bld) 0.0 % [facility] Hardin cells LM Ql (Bld) Present Abnormal (none) [facility] Differential cell count method Nom (Bld) Manual Differential [facility] Eosinophils (Bld) [#/Vol] 0.02 10*3/uL [facility] Eosinophils/100 WBC (Bld) 0.8 % [facility] Interpretation and review of laboratory results Abnormal [facility] Lymphocytes (Bld) [#/Vol] 0.43 10*3/uL Low 0.83 - 3.57 K/uL [facility] Lymphocytes/100 WBC (Bld) 20.5 % [facility] Monocytes (Bld) [#/Vol] 0.55 10*3/uL 0.24 - 0.93 K/uL [facility] Monocytes/100 WBC (Bld) 26.0 % [facility] Neutrophils (Bld) [#/Vol] 1.11 10*3/uL Low 1.57 - 6.19 K/uL [facility] Nucleated RBC/100 WBC (Bld) [Ratio] 1.0 % High [facility] Platelets Estimate (Bld) [#/Vol] Automated platelet count confirmed by manual slide review [facility] RBC morphology finding Nom (Bld) RBC INDICES CONFIRMED WITH MANUAL SLIDE REVIEW [facility] Segmented neutrophils/100 WBC (Bld) 52.7 % [facility] Comment on above: Dohle bodies present [facility] No Panel Informationon 12-28 Radiology Study observation (narrative) [facility] Interpretation and review of laboratory results Abnormal [facility] POUCHOSCOPYon 12-28-2024 [facility] Gastroenterology Patient Name: Jc Dunaway Procedure Date: 12/28/2024 9:44 AM Date of : 1965 Admit Type: Inpatient Age: 59 Room: [place] [address] Gender: Male Note Status: Finalized Attending MD: Miroslava Joiner MD, [id number] Procedure: Pouchoscopy Indications: Follow-up of chronic ulcerative proctitis Providers: Miroslava Joiner MD (Doctor), Loyda Hernandez RN (Nurse), Brant Mckenna RN (Nurse), Liss Boo, Hedge Fund Accountant (Hedge Fund Accountant) Referring MD: Babs Marley MD (Referring MD) [...] by the physician, the nurse and the brim ironer hand in the procedure room at 09:45. [...] to the patient. - Return patient to [facility] (more content not included)... LAB, [facility] Q FEVER ANTIBODYon Q FEVER ANTIBODY Reactive Normal Negative [facility] Comment on above: Result Comment: Not diagnostic. Sample reflexed to IFAto determine Q Fever (Coxiella burnetii)phase I and phase II IgM and IgG titers. ADDITIONAL INFORMATION This test was developed and its performance characteristicsdetermined by [facility] in a manner consistent withCLIA requirements. This test has not been cleared orapproved by the U.S. Food and Drug Administration.Test Performed by:[address] Director: Orlando Cruz Ph.D.; CLIA# [id number] Performed By: #### L ABYQFEVT, YQFEV ####[facility] (DEFAULT)[address] [place] [id number] Q FEVER IGM/IGG, TITER, Son 12-28-2024 Q FEVER IGM <1:16 Normal <1:16 [facility] Comment on above: Performed By: #### L ABYQFEVT, YQFEV ####[facility] (DEFAULT)[address] [place] [address] Q FEVER INTERPRETATION SEE COMMENTS Normal [facility] Comment on above: Result Comment: Acti ve Q Fever infections are characterized by a fourfoldincrease in serum IgG between acute and convalescentsamples and/or the presence of IgM antibodies directedagainst phase II organisms. In chronic Q Fever the IgGand/or IgM response is most often directed against phase Iorganisms, resulting in phase I titers that are greaterthan phase II titers.Test Performed by:[facility] [place], [place] [address]Vgr Director: Orlando Cruz Ph.D.; CLIA# [id number] Performed By: #### L ABYQFEVT, YQFEV ####[facility] (DEFAULT)[address] [place] [address] Q FEVER PHASE II AB, IGG 1:64 Abnormal <1:16 [facility] Comment on above: Performed By: #### L ABYQFEVT, YQFEV ####[facility] (DEFAULT)[address] [place] [address] Q FEVER PHASE II AB, IGM <1:16 Normal <1:16 [facility] Comment on above: Performed By: #### L ABYQFEVT, YQFEV ####[facility] (DEFAULT)[address] [place] [address] Q-Fever Phase I IgG Titer <1:16 Normal <1:16 [facility] Comment on above: Performed By: #### L ABYQFEVT, YQFEV ####[facility] (DEFAULT)[address] [place] [address] SCREEN, VREOrdered By: Sultana Garcia on 12-28-2024 Interpretation and review of laboratory results Normal [facility] Vancomycin Resistant Enterococcus Negative Negative [facility] SURG PATH REQUESTon 12-29-[address] [facility] Comment on above: Result Comment: Surg ical Pathology Report Case: [id number] Provider: Johnnie Lester MD Collected: 12/28/2024 09:35 AMOrdering Location: [facility] Received: 12/28/2024 10:49 AMPathologist: Alexander Chinchilla MD, PhDSpecimens: A) - DUODENUM, R/o CMV HSV mycophenalate B) - DUODENUM, 2nd portion R/o CMV HSV mycophenalate C) - STOMACH, r/o CMV HSV Mycophenalate D) - ESOPHAGUS, R/O candidia HSV CMV E) - COLON TISSUE OR BIOPSY, rectal cuff r/o colitis dysplasia Performed By: #### S URGP ####[facility] (DEFAULT)[address] [place] [address] Clinical History Normal [facility] Comment on above: Performed By: #### S URGP ####[facility] (DEFAULT)[address] [place] [address] Gross Description Normal [facility] Comment on above: Result Comment: The [...] greatest dimension. TE 1Lab Use Only: JobID [id number] for this case was: Shanon Fletcher Performed By: #### S URGP ####[facility] (DEFAULT)[address] [place] [address] Normal [facility] Comment on above: Result Comment: A mi croscopic examination was performed.All controls show appropriate reactivity. All immunohistochemistry (IHC), in situ hybridization (MELA), and histochemical tests were developed by and are performed at the [facility] Clinical Laboratory, Histology and IHC Lab, [address] [place] [address]. All Immunofluorescent (IF) tests were developed by and are performed at the [facility] Clinical Laboratory, Renal Division, [address] [place] [address]. All tests reported here, except for PD-L1, have not been cleared by or approved by the [place] Food and Drug Administration (FDA). The laboratory is regulated under CLIA as qualified to perform high-complexity testing. The tests are used for clinical purposes. They should not be regarded as investigational or for research. Performed By: #### S URGP ####[facility] (DEFAULT)[address] [place] [address] Pathologic Diagnosis [facility] Comment on above: Result Comment: A. D uodenum, biopsy:No significant pathologic changeB. Duodenum, second portion, biopsy:No significant pathologic changeC. Stomach, biopsy:Mild chronic inactive gastritisNo Helicobacter on H&E-stained sectionsD. Esophagus, biopsy:Naeem esophagitis (PASD stain)Negative CMV, Adenovirus, and HSV 1&2 immunostainsE. Rectum, cuff, biopsy:Chronic inactive proctitis at 2020 EST Performed By: #### S URGP ####[facility] (DEFAULT)[address] [place] [address] Professional Interpretation Performed at: [facility] Comment on above: Result Comment: [facility]INICAL LABORATORYFor Immediate Release to Patient's MyChart? [id number] [place] [address] Performed By: #### S URGP ####[facility] (DEFAULT)[address] [place] [address] TACROLIMUS LEVEL, TROUGH (NE E DRUG LEVEL)on 12-28-2024 Tacrolimus (Bld) [Mass/Vol] 13.6 ng/mL Bone Marrow Transplant: 5.0-15.0 Kidney/Pancre atic Transplant: 0 to 3 months: 8.0-10.0, 3 to 12 months: 6.0-8.0, >12 months: 4.0-6.0 [facility] Method performed is a chemiluminescent microparticle immunoasssay on the Pay4later I. The range is based on experience at [facility] and users should be aware that target concentrations vary widely depending on concomitant therapy, time post-transplant, and desired degree of immunosuppression. [facility] Tacrolimus, Trough 13.6 ng/mL Normal Bone Veronique ow Transplant: 5.0-15.0 Kidney/Pancre at Transplant: 0 to 3 months: 8.0-10.0, 3 to 12 months: 6.0-8.0, >12 months: 4.0-6.0 [facility] Comment on above: Order Comment: Pleas e draw at specified interval PRIOR to dose. Do not hold dose to wait for level. Specimens batched twice per day, (M-) and once per day weekendsMethod performed is a chemiluminescent microparticle immunoasssay on the Pay4later I.The range is based on experience at [facility] and users should be aware that target concentrations vary widely depending on concomitant therapy, time post-transplant, and desired degree of immunosuppression. Performed By: #### T ACRO ####[facility] (DEFAULT)[address] [place] [address] CBC,PLATELETSon 12-27-2024 Erythrocyte distribution width (RBC) [Ratio] 17.2 % High 10.9 - 14.3 % [facility] Hematocrit (Bld) [Volume fraction] 29.1 % Low 39.6 - 48.8 % [facility] Hemoglobin (Bld) [Mass/Vol] 9.4 g/dL Low 13.4 - 16.8 g/dL [facility] Interpretation and review of laboratory results Abnormal [facility] MCH (RBC) [Entitic mass] 27.5 pg 26.1 - 33.3 pg [facility] MCHC (RBC) [Mass/Vol] 32.3 g/dL 31.9 - 36.5 g/dL [facility] MCV (RBC) [Entitic vol] 85.1 fL 79.0 - 94.5 fL [facility] Platelet mean volume (Bld) [Entitic vol] 9.7 fL 8.7 - 12.3 fL [facility] Platelets (Bld) [#/Vol] 484 10*3/uL High 146 - 337 K/uL [facility] RBC (Bld) [#/Vol] 3.42 10*6/uL Low [facility] WBC (Bld) [#/Vol] 1.95 10*3/uL Low 3.73 - 10. 10 K/uL [facility] Hematocrit (Bld) [Volume fraction] 29.1 % Low 39.6-48.8 [facility] Comment on above: Performed By: #### E DIF2, HEMOGC ####[facility] (DEFAULT)[address] [place] [phone] Hemoglobin (Bld) [Mass/Vol] 9.4 g/dL Low 13.4-16.8 [facility] Comment on above: Performed By: #### E DIF2, HEMOGC ####[facility] (DEFAULT)[address] [place] [address] MCV (RBC) [Entitic vol] 85.1 fL Normal 79.0-94.5 [facility] Comment on above: Performed By: #### E DIF2, HEMOGC ####[facility] (DEFAULT)[address] [place] [address] Mean Cell Hgb 27.5 pg Normal 26.1-33.3 [facility] Comment on above: Performed By: #### E DIF2, HEMOGC ####[facility] (DEFAULT)[address] [place] [address]146 Mean Cell Hgb Conc 32.3 g/dL Normal 31.9-36.5 [facility] Comment on above: Performed By: #### E DIF2, HEMOGC ####[facility] (DEFAULT)[address] [place] [address] Platelet mean volume (Bld) [Entitic vol] 9.7 fL Normal 8.7-12.3 [facility] Comment on above: Performed By: #### E DIF2, HEMOGC ####[facility] (DEFAULT)[address] [place] [address] Platelets (Bld) [#/Vol] 484 10*3/uL High 146-337 [facility] Comment on above: Performed By: #### E DIF2, HEMOGC ####[facility] (DEFAULT)[address] [place] [address] RBC (Bld) [#/Vol] 3.42 10*6/uL Low 4.38-5.83 [facility] Comment on above: Performed By: #### Skyler DIF2, HEMOGC ####[facility] (DEFAULT)[address] [place] [address] RBC Distribution 17.2 % High 10.9-14.3 [facility] Comment on above: Performed By: #### Skyler DIF2, HEMOGC ####[facility] (DEFAULT)[address] [place] [address] WBC (Bld) [#/Vol] 1.95 10*3/uL Low 3.73-10.10 [facility] Comment on above: Performed By: #### E DIF2, HEMOGC ####[facility] (DEFAULT)[address] [place] [address] CHEM 7 (LYTES,BUN,CREA,GLUC) on 12-27-2024 Anion gap [Moles/Vol] 12 mmol/L 7 - 17 mmol/L [facility] Chloride [Moles/Vol] 103 mmol/L 98 - 10 8 mmol/L [facility] CO2 [Moles/Vol] 25 mmol/L 21 - 31 mmol/L [facility] Creatinine [Mass/Vol] 1.04 mg/dL 0.70 - 1.30 mg/dL [facility] eGFR, CKD-EPI, Male 82 - PINF [facility] Comment on above: Reported eGFR is bas ed on the CKD-EPI 2020 equation using creatinine, age, and sex. Glucose [Mass/Vol] 89 mg/dL 70 - 179 mg/dL [facility] Osmolality Calc [Osmolality] 289 [facility] Potassium [Moles/Vol] 4.3 mmol/L 3.5 - 5.0 mmol/L [facility] Sodium [Moles/Vol] 136 mmol/L 135 - 145 mmol/L [facility] Urea nitrogen [Mass/Vol] 23 mg/dL 7 - 25 mg/dL [facility] Urea nitrogen/Creatinine [Mass ratio] 22 mg/mg [facility] Anion gap [Moles/Vol] 12 mmol/L Normal 7-17 [facility] Comment on above: Performed By: #### T SHQADONIS Sin, CHM7 ####[facility] (DEFAULT)[address] [place] [address] Chloride [Moles/Vol] 103 mmol/L Normal 98-108 [facility] Comment on above: Performed By: #### T SHQR, HFP, CHM7 ####[facility] (DEFAULT)[address] [place] [address] CO2 [Moles/Vol] 25 mmol/L Normal 21-31 [facility] Comment on above: Performed By: #### T SHQR, HFP, CHM7 ####[facility] (DEFAULT)[address] [place] [address] Creatinine [Mass/Vol] 1.04 mg/dL Normal 0.70-1.30 [facility] Comment on above: Performed By: #### T SHQR, HFP, CHM7 ####[facility] (DEFAULT)[address] [place] [address] GFR/1.73 sq M.predicted among non-blacks MDRD (S/P/Bld) [Vol rate/Area] 82 mL/min/{1.73_m2} Normal >=60 [facility] Comment on above: Result Comment: Repo rted eGFR is based on the CKD-EPI 2020 equation using creatinine, age, and sex. Performed By: #### T SHQRADONIS, CHM7 ####[facility] (DEFAULT)[address] [place] [address] Glucose [Mass/Vol] 89 mg/dL Normal Nonfastin -179 mg/dL; Fastin-99 [facility] Comment on above: Performed By: #### T ADONIS HOLLY, CHM7 ####[facility] (DEFAULT)[address] [place] [address] Osmolality [Osmolality] 289 mosm/kg Normal 278-305 [facility] Comment on above: Performed By: #### T SHTremaineRADONIS, CHM7 ####[facility] (DEFAULT)[address] [place] [address] Potassium [Moles/Vol] 4.3 mmol/L Normal 3.5-5.0 [facility] Comment on above: Performed By: #### T SHTremaineRADONIS, CHM7 ####[facility] (DEFAULT)[address] [place] [address] Sodium [Moles/Vol] 136 mmol/L Normal 135-145 [facility] Comment on above: Performed By: #### T SHQR, ADONIS, CHM7 ####[facility] (DEFAULT)[address] [place] [address] Urea nitrogen [Mass/Vol] 23 mg/dL Normal 7-25 [facility] Comment on above: Performed By: #### T SHQR, ADONIS, CHM7 ####[facility] (DEFAULT)[address] [place] [address] Urea nitrogen/Creatinine [Mass ratio] 22 mg/mg Normal [facility] Comment on above: Performed By: #### T SHQR, HFP, CHM7 ####[facility] (DEFAULT)[address] [place] [address] ELECTRONIC DIFFon 12-27-2024 Basophils (Bld) [#/Vol] [facility] Bas[facility]Bld) [facility] Eosinophils (Bld) [#/Vol] [facility] Eosinophils/100 WBC (Bld) [facility] Immature granulocytes (Bld) [#/Vol] [facility] Immature granulocytes/100 WBC (Bld) [facility] Lymphocytes (Bld) [#/Vol] [facility] Lymphocytes/100 WBC (Bld) [facility] Monocytes (Bld) [#/Vol] [facility] Monocytes/100 WBC (Bld) [facility] Neutrophils/100 WBC (Bld) [facility] Nucleated RBC/100 WBC (Bld) [Ratio] [facility] Segmented neutrophils/100 WBC (Bld) [facility] Abs Baso Auto Normal [facility] Comment on above: Performed By: #### E DIF2, HEMOGC ####[facility] (DEFAULT)[address] [place] [address] Abs Eos Auto Normal [facility] Comment on above: Performed By: #### E DIF2, HEMOGC ####[facility] (DEFAULT)[address] [place] [address] Abs Lymph Auto Normal [facility] Comment on above: Performed By: #### E DIF2, HEMOGC ####[facility] (DEFAULT)[address] [place] [address] Abs [place] Auto Normal [facility] Comment on above: Performed By: #### E DIF2, HEMOGC ####[facility] (DEFAULT)[address] [place] [address] Basophil % Auto Normal [facility] Comment on above: Performed By: #### E DIF2, HEMOGC ####[facility] (DEFAULT)[address] [place] [address] Eosinophil % Auto Normal [facility] Comment on above: Performed By: #### E DIF2, HEMOGC ####[facility] (DEFAULT)[address] [place] [address] Immature Grans % Normal [facility] Comment on above: Performed By: #### E DIF2, HEMOGC ####[facility] (DEFAULT)[address] [place] [address] Immature Grans Absolute Normal [facility] Comment on above: Performed By: #### E DIF2, HEMOGC ####[facility] (DEFAULT)[address] [place] [address] Lymphocyte % Auto Normal [facility] Comment on above: Performed By: #### E DIF2, HEMOGC ####[facility] (DEFAULT)[address] [place] [address] Monocyte % Auto Normal [facility] Comment on above: Performed By: #### E DIF2, HEMOGC ####[facility] (DEFAULT)[address] [facility] [address] RBC [address] [facility] Comment on above: Performed By: #### E DIF2, HEMOGC ####[facility] (DEFAULT)[address] [place] [address] Segs + Bands Auto Normal [facility] Comment on above: Performed By: #### E DIF2, HEMOGC ####[facility] (DEFAULT)[address] [place] [address] Segs + Bands,Absolute Auto Normal [facility] Comment on above: Performed By: #### E DIF2, HEMOGC ####[facility] (DEFAULT)[address] [place] [address] EXTRA MICROon 12-27-2024 [facility] HEPATIC FUNCTION PANELon Albumin [Mass/Vol] 3.0 g/dL Low 3.5 - 5.0 g/dL [facility] ALP [Catalytic activity/Vol] 667 U/L High 32 - 126 U/L [facility] ALT [Catalytic activity/Vol] 8 U/L Low 10 - 52 U/L [facility] AST [Catalytic activity/Vol] 11 U/L 10 - 39 U/L [facility] Bilirubin [Mass/Vol] 1.0 mg/dL NINF - 1.5 mg/dL [facility] Bilirubin.direct [Mass/Vol] 0.3 mg/dL High NINF - 0.3 mg/dL [facility] Interpretation and review of laboratory results Abnormal [facility] Protein [Mass/Vol] 5.8 g/dL Low 6.4 - 8.3 g/dL [facility] Albumin [Mass/Vol] 3.0 g/dL Low 3.5-5.0 [facility] Comment on above: Performed By: #### T SHQR, HFP, CHM7 ####[facility] (DEFAULT)[address] [place] [address] ALP [Catalytic activity/Vol] 667 U/L High 32-126 [facility] Comment on above: Performed By: #### T SHQR, HFP, CHM7 ####[facility] (DEFAULT)[address] [place] [address] ALT [Catalytic activity/Vol] 8 U/L Low 10-52 [facility] Comment on above: Performed By: #### T SHQR, HFP, CHM7 ####[facility] (DEFAULT)[address] [place] [address] AST [Catalytic activity/Vol] 11 U/L Normal 10-39 [facility] Comment on above: Performed By: #### T ADONIS HOLLY, CHM7 ####[facility] (DEFAULT)[address] [place] [address] Bilirubin [Mass/Vol] 1.0 mg/dL Normal <1.5 [facility] Comment on above: Performed By: #### T ADONIS HOLLY, CHM7 ####[facility] (DEFAULT)[address] [place] [address] Bilirubin.indirect [Mass/Vol] 0.3 mg/dL High <0.3 [facility] Comment on above: Performed By: #### T ADONIS HOLLY, CHM7 ####[facility] (DEFAULT)[address] [place] [address] Protein [Mass/Vol] 5.8 g/dL Low 6.4-8.3 [facility] Comment on above: Performed By: #### T ADONIS HOLLY, CHM7 ####[facility] (DEFAULT)[address] [place] [address] MANUAL DIFFon 12-27-2024 Band form neutrophils/100 WBC (Bld) 0.0 % [facility] Basophils (Bld) [#/Vol] 0.02 10*3/uL 0.00 - 0.09 K/uL [facility] Basophils/100 WBC (Bld) 0.8 % [facility] Hardin cells LM Ql (Bld) Present Abnormal (none) [facility] Differential cell count method Nom (Bld) Manual Differential [facility] Eosinophils (Bld) [#/Vol] 0.00 10*3/uL [facility] Eosinophils/100 WBC (Bld) 0.0 % [facility] Interpretation and review of laboratory results Abnormal [facility] Lymphocytes (Bld) [#/Vol] 0.45 10*3/uL Low 0.83 - 3.57 K/uL [facility] Lymphocytes/100 WBC (Bld) 23.3 % [facility] Monocytes (Bld) [#/Vol] 0.58 10*3/uL 0.24 - 0.93 K/uL [facility] Monocytes/100 WBC (Bld) 29.5 % [facility] Neutrophils (Bld) [#/Vol] 0.90 10*3/uL Low 1.57 - 6.19 K/uL [facility] Ovalocytes LM Ql (Bld) Present Abnormal (none) [facility] Platelet clump LM Ql (Bld) Present Abnormal (none) [facility] Platelets Estimate (Bld) [#/Vol] Automated platelet count confirmed by manual slide review [facility] RBC morphology finding Nom (Bld) RBC INDICES CONFIRMED WITH MANUAL SLIDE REVIEW [facility] Segmented neutrophils/100 WBC (Bld) 46.4 % [facility] No Panel Informationon 12-27 [facility] ABO/RH(D) TYPE Positive [facility] BLOOD COMPONENT TYPE Red Cells, Leukoreduced [facility] EXPIRATION DATE [facility] Product ABO/RH(D) Negative [facility] Product ABO/RH(D) NUMBER [id number] [facility] Unit Compatibility Compatibile [facility] UNIT STATUS transfused [facility] No Panel InformationOrdered By: System Discharge on 12-27-2024 [facility] PREPARE TO TRANSFUSE RED BLO OD CELLSon 12-27-2024 PRODUCT CODE [id number] [facility] PRODUCT CODE [id number] [facility] UNIT NUMBER [id number] [facility] UNIT NUMBER [id number] [facility] TRANSFUSE RED BLOOD CELLSOrd ered By: Genesis Smith on 12-27-2024 [facility] TSH W/FT4 REFLEXon 10-28-202 5 Interpretation and review of laboratory results Normal [facility] TSH Qn 1.264 m[IU]/L [facility] TSH 1.264 uIU/mL Normal 0.550-4.780 [facility] Comment on above: Performed By: #### T SHQR, ADONIS, CHM7 ####[facility] (DEFAULT)[address] [place] [address] US ABDOMEN LIVER TRANSPLANT DOPPLERon 12-27-2024 US ABDOMEN LIVER TRANSPLANT DOPPLER Normal [facility] US.doppler Abdominal vessels on 12-27-2024 IMPRESSION: [...] pelvis is recommended. 2. Patent transplant vasculature. [facility] Radiology Study observation (narrative) [facility] US.doppler Abdominal vessels Ordered By: Uriel John on 12-27-2024 [facility] Work Phone: [email or web address] 12-26-2024 Amylase [Catalytic activity/Vol] 45 U/L 20 - 103 U/L [facility] Amylase [Catalytic activity/Vol] 45 U/L Normal 20-103 [facility] Comment on above: Performed By: #### I PB, HFP, CHM7, MGO, CA, AMYB ####[facility] (DEFAULT)[address] [place] [address] CALCIUMon 12-26-2024 Calcium [Mass/Vol] 9.1 mg/dL 8.6 - 10. 5 mg/dL [facility] Calcium [Mass/Vol] 9.1 mg/dL Normal 8.6-10.5 [facility] Comment on above: Performed By: #### I PB, HFP, CHM7, MGO, CA, AMYB ####[facility] (DEFAULT)[address] [place] [address] CBC AND ELECTRONIC DIFFon Erythrocyte distribution width (RBC) [Ratio] 16.9 % High 10.9 - 14.3 % [facility] Hematocrit (Bld) [Volume fraction] 22.1 % Low 39.6 - 48.8 % [facility] Hemoglobin (Bld) [Mass/Vol] 6.7 g/dL Critically low 13.4 - 16.8 g/dL [facility] Comment on above: This result has been called to Marcus Story RN by [email or web address] on 12/26/2024 18:28:14, and has been read back. MCH (RBC) [Entitic mass] 27.1 pg 26.1 - 33.3 pg [facility] MCHC (RBC) [Mass/Vol] 30.3 g/dL Low 31.9 - 36.5 g/dL [facility] MCV (RBC) [Entitic vol] 89.5 fL 79.0 - 94.5 fL [facility] Comment on above: Results inconsistent with previous results Platelet mean volume (Bld) [Entitic vol] 9.7 fL 8.7 - 12.3 fL [facility] Platelets (Bld) [#/Vol] 525 10*3/uL High 146 - 337 K/uL [facility] RBC (Bld) [#/Vol] 2.47 10*6/uL Low [facility] WBC (Bld) [#/Vol] 1.79 10*3/uL Low 3.73 - 10. 10 K/uL [facility] Hematocrit (Bld) [Volume fraction] 22.1 % Low 39.6-48.8 [facility] Comment on above: Performed By: #### L [id number] ####[facility] (DEFAULT)[address] [place] [address] Hemoglobin (Bld) [Mass/Vol] 6.7 g/dL Critically low 13.4-16.8 [facility] Comment on above: Result Comment: This result has been called to Marcus Story RN by [email or web address] on 12/26/2024 18:28:14, and has been read back. Performed By: #### L [id number] ####[facility] (DEFAULT)[address] [place] [address], [place] [address] MCV (RBC) [Entitic vol] 89.5 fL Normal 79.0-94.5 [facility] Comment on above: Result Comment: Resu lts inconsistent with previous results Performed By: #### L [id number] ####[facility] (DEFAULT)[address] [place] [address] Mean Cell Hgb 27.1 pg Normal 26.1-33.3 [facility] Comment on above: Performed By: #### L [id number] ####[facility] (DEFAULT)[address] [place] [address] Mean Cell Hgb Conc 30.3 g/dL Low 31.9-36.5 [facility] Comment on above: Performed By: #### L [id number] ####[facility] (DEFAULT)[address] [place] [address] Platelet mean volume (Bld) [Entitic vol] 9.7 fL Normal 8.7-12.3 [facility] Comment on above: Performed By: #### L [id number] ####[facility] (DEFAULT)[address] [place] [address] Platelets (Bld) [#/Vol] 525 10*3/uL High 146-337 [facility] Comment on above: Performed By: #### L [id number] ####[facility] (DEFAULT)[address] [place] [address] RBC (Bld) [#/Vol] 2.47 10*6/uL Low 4.38-5.83 [facility] Comment on above: Performed By: #### L [id number] ####[facility] (DEFAULT)[address] [place] [address] RBC Distribution 16.9 % High 10.9-14.3 [facility] Comment on above: Performed By: #### L [id number] ####[facility] (DEFAULT)[address] [place] [address] WBC (Bld) [#/Vol] 1.79 10*3/uL Low 3.73-10.10 [facility] Comment on above: Performed By: #### L [id number] ####[facility] (DEFAULT)[address] [place] [address] CHEM 7 (LYTES,BUN,CREA,GLUC) on 12-26-2024 Anion gap [Moles/Vol] 13 mmol/L 7 - 17 mmol/L [facility] Chloride [Moles/Vol] 101 mmol/L 98 - 10 8 mmol/L [facility] CO2 [Moles/Vol] 23 mmol/L 21 - 31 mmol/L [facility] Creatinine [Mass/Vol] 0.98 mg/dL 0.70 - 1.30 mg/dL [facility] eGFR, CKD-EPI, Male 88 - PINF [facility] Comment on above: Reported eGFR is bas ed on the CKD-EPI 2020 equation using creatinine, age, and sex. Glucose [Mass/Vol] 117 mg/dL 70 - 179 mg/dL [facility] Osmolality Calc [Osmolality] 285 [facility] Potassium [Moles/Vol] 4.1 mmol/L 3.5 - 5.0 mmol/L [facility] Sodium [Moles/Vol] 133 mmol/L Low 135 - 145 mmol/L [facility] Urea nitrogen [Mass/Vol] 23 mg/dL 7 - 25 mg/dL [facility] Urea nitrogen/Creatinine [Mass ratio] 23 mg/mg [facility] Anion gap [Moles/Vol] 13 mmol/L Normal 7-17 [facility] Comment on above: Performed By: #### I PB, HFP, CHM7, MGO, CA, AMYB ####[facility] (DEFAULT)[address] [place] [address] Chloride [Moles/Vol] 101 mmol/L Normal 98-108 [facility] Comment on above: Performed By: #### I PB, HFP, CHM7, MGO, CA, AMYB ####[facility] (DEFAULT)[address] [place] [address] CO2 [Moles/Vol] 23 mmol/L Normal 21-31 [facility] Comment on above: Performed By: #### I PB, HFP, CHM7, MGO, CA, AMYB ####[facility] (DEFAULT)[address] [place] [address] Creatinine [Mass/Vol] 0.98 mg/dL Normal 0.70-1.30 [facility] Comment on above: Performed By: #### I PB, HFP, CHM7, MGO, CA, AMYB ####[facility] (DEFAULT)[address] [place] [address] GFR/1.73 sq M.predicted among non-blacks MDRD (S/P/Bld) [Vol rate/Area] 88 mL/min/{1.73_m2} Normal >=60 [facility] Comment on above: Result Comment: Repo rted eGFR is based on the CKD-EPI 2020 equation using creatinine, age, and sex. Performed By: #### I PB, HFP, CHM7, MGO, CA, AMYB ####[facility] (DEFAULT)[address] [place] [address] Glucose [Mass/Vol] 117 mg/dL Normal Nonfastin -179 mg/dL; Fastin-99 [facility] Comment on above: Performed By: #### I PB, HFP, CHM7, MGO, CA, AMYB ####[facility] (DEFAULT)[address] [place] [address] Osmolality [Osmolality] 285 mosm/kg Normal 278-305 [facility] Comment on above: Performed By: #### I PB, HFP, CHM7, MGO, CA, AMYB ####[facility] (DEFAULT)[address] [place] [address] Potassium [Moles/Vol] 4.1 mmol/L Normal 3.5-5.0 [facility] Comment on above: Performed By: #### I PB, HFP, CHM7, MGO, CA, AMYB ####[facility] (DEFAULT)[address] [place] [address] Sodium [Moles/Vol] 133 mmol/L Low 135-145 [facility] Comment on above: Performed By: #### I PB, HFP, CHM7, MGO, CA, AMYB ####[facility] (DEFAULT)[address] [place] [address] Urea nitrogen [Mass/Vol] 23 mg/dL Normal 7-25 [facility] Comment on above: Performed By: #### I PB, HFP, CHM7, MGO, CA, AMYB ####[facility] (DEFAULT)[address] [place] [address] Urea nitrogen/Creatinine [Mass ratio] 23 mg/mg Normal [facility] Comment on above: Performed By: #### I PB, HFP, CHM7, MGO, CA, AMYB ####[facility] (DEFAULT)[address] [place] [address] HEPATIC FUNCTION PANELon Albumin [Mass/Vol] 3.2 g/dL Low 3.5 - 5.0 g/dL [facility] ALP [Catalytic activity/Vol] 685 U/L High 32 - 126 U/L [facility] ALT [Catalytic activity/Vol] 7 U/L Low 10 - 52 U/L [facility] AST [Catalytic activity/Vol] 12 U/L 10 - 39 U/L [facility] Bilirubin [Mass/Vol] 0.3 mg/dL [facility] 1.[facility] mg/dL [facility] Bilirubin.direct [Mass/Vol] mg/dL NINF - 0.3 mg/dL [facility] Protein [Mass/Vol] 5.9 g/dL Low 6.4 - 8.3 g/dL [facility] Albumin [Mass/Vol] 3.2 g/dL Low 3.5-5.0 [facility] Comment on above: Performed By: #### I PB, HFP, CHM7, MGO, CA, AMYB ####[facility] (DEFAULT)[address] [place] [address] ALP [Catalytic activity/Vol] 685 U/L High 32-126 [facility] Comment on above: Performed By: #### I PB, HFP, CHM7, MGO, CA, AMYB ####[facility] (DEFAULT)[address] [place] [address] ALT [Catalytic activity/Vol] 7 U/L Low 10-52 [facility] Comment on above: Performed By: #### I PB, HFP, CHM7, MGO, CA, AMYB ####[facility] (DEFAULT)[address] [place] [address] AST [Catalytic activity/Vol] 12 U/L Normal 10-39 [facility] Comment on above: Performed By: #### I PB, HFP, CHM7, MGO, CA, AMYB ####[facility] (DEFAULT)[address] [place] [address] Bilirubin [Mass/Vol] 0.3 mg/dL Normal <1.5 [facility] Comment on above: Performed By: #### I PB, HFP, CHM7, MGO, CA, AMYB ####[facility] (DEFAULT)[address] [place] [address] Bilirubin Direct < Normal <0.3 [facility] Comment on above: Performed By: #### I PB, HFP, CHM7, MGO, CA, AMYB ####[facility] (DEFAULT)[address] [place] [address] Protein [Mass/Vol] 5.9 g/dL Low 6.4-8.3 [facility] Comment on above: Performed By: #### I PB, HFP, CHM7, MGO, CA, AMYB ####[facility] (DEFAULT)[address] [place] [address] MAGNESIUMon 12-26-2024 Magnesium [Mass/Vol] 1.3 mg/dL Low 1.6 - 2 .6 mg/dL [facility] Magnesium [Mass/Vol] 1.3 mg/dL Low 1.6-2.6 [facility] Comment on above: Performed By: #### I PB, HFP, CHM7, MGO, CA, AMYB ####[facility] (DEFAULT)[address] [place] [address] MANUAL DIFFon 12-26-2024 Band form neutrophils/100 WBC (Bld) 0.0 % [facility] Basophils (Bld) [#/Vol] 0.00 10*3/uL 0.00 - 0.09 K/uL [facility] Basophils/100 WBC (Bld) 0.0 % [facility] Differential cell count method Nom (Bld) Manual Differential [facility] Eosinophils (Bld) [#/Vol] 0.01 10*3/uL [facility] Eosinophils/100 WBC (Bld) 0.8 % [facility] Lymphocytes (Bld) [#/Vol] 0.66 10*3/uL Low 0.83 - 3.57 K/uL [facility] Lymphocytes/100 WBC (Bld) 36.9 % [facility] Monocytes (Bld) [#/Vol] 0.60 10*3/uL 0.24 - 0.93 K/uL [facility] Monocytes/100 WBC (Bld) 33.6 % [facility] Neutrophils (Bld) [#/Vol] 0.51 10*3/uL Low 1.57 - 6.19 K/uL [facility] Ovalocytes LM Ql (Bld) Present Abnormal (none) [facility] Platelet clump LM Ql (Bld) Present Abnormal (none) [facility] Platelets Estimate (Bld) [#/Vol] Automated platelet count confirmed by manual slide review [facility] RBC morphology finding Nom (Bld) RBC INDICES CONFIRMED WITH MANUAL SLIDE REVIEW [facility] Segmented neutrophils/100 WBC (Bld) 28.7 % [facility] Comment on above: Toxic granulation pr esent Target cells LM Ql (Bld) Present Abnormal (none) [facility] No Panel Informationon 12-26 Interpretation and review of laboratory results Abnormal [facility] Interpretation and review of laboratory results Normal [facility] Interpretation and review of laboratory results Abnormal [facility] PHOSPHATE, INORGANICon 12-26 Phosphate [Mass/Vol] 3.4 mg/dL 2.2 - 4 .6 mg/dL [facility] Phosphorous 3.4 mg/dL Normal 2.2-4.6 [facility] Comment on above: Performed By: #### I PB, HFP, CHM7, MGO, CA, AMYB ####[facility] (DEFAULT)[address] [place] [address] PT,INR,PTTon 12-26-2024 aPTT Coag (PPP) [Time] 34.1 s [facility] INR Coag (Bld) [Relative time] 1.2 {INR} High 0.9 - 1.1 [facility] Interpretation and review of laboratory results Abnormal [facility] PT Coag (PPP) [Time] 15.5 s High [facility] aPTT Coag (Bld) [Time] 34.1 s Normal 24.0-34.3 [facility] Comment on above: Performed By: #### P TPTT ####[facility] (DEFAULT)[address] [place] [address] INR Coag (PPP) [Relative time] 1.2 {INR} High 0.9-1.1 [facility] Comment on above: Performed By: #### P TPTT ####[facility] (DEFAULT)[address] [place] [address] PT Coag (PPP) [Time] 15.5 s High 11.9-14.2 [facility] Comment on above: Performed By: #### P TPTT ####[facility] (DEFAULT)[address] [place] [address] SCREEN, VREon 12-26-2024 Vancomycin Resistant Enterococcus Negative Normal Negative [facility] Comment on above: Order Comment: Colle ct with an ESWAB; requires 1 perirectal site. Performed By: #### S CV ####[facility] (DEFAULT)[address] [place] [address] TYPE AND SCREENon 12-26-2024 ABO/RH(D) TYPE Positive [facility] Specimen Expiration 12/29/2024 23:59 [facility] ABO/RH(D) TYPE Positive Normal [facility] Comment on above: Performed By: #### X M ####[facility] (DEFAULT)[address] [place] [address] Specimen Expiration 12/29/2024 23:[address] [facility] Comment on above: Performed By: #### X M ####[facility] (DEFAULT)[address] [place] [address] URINALYSIS REFLEX TO CULTURE PERFORMABLEon 12-26-2024 Appearance (U) Clear Clear [facility] Bacteria LM Ql (Urine sed) ABSENT ABSENT [facility] Color (U) Yellow Yellow [facility] Epithelial cells.squamous LM Ql (Urine sed) 0-2/hpf 0-2/hpf, 3-5/hpf = 1+ [facility] Glucose Test strip (U) [Mass/Vol] Negative Negative [facility] Interpretation and review of laboratory results Normal [facility] Ketones (U) [Mass/Vol] Negative Negative [facility] Leukocyte esterase Test strip Ql (U) Negative Negative [facility] Nitrite Ql (U) Negative Negative [facility] pH (U) 5.5 [pH] 5.0 - 7.0 [facility] Protein (U) [Mass/Vol] Negative Negative [facility] RBC (U) [#/Vol] Negative Negative [facility] RBC LM.HPF (Urine sed) [#/Area] 0-2 [facility] Specific gravity (U) [Rel density] 1.020 1.001 - 1.035 [facility] Urobilinogen (U) [Mass/Vol] 0.2 E.U./dL 0.2 E.U/dL, 1.0 E.U/dL [facility] WBC LM.HPF (Urine sed) [#/Area] 0 - 5 [facility] Appearance (U) Clear Normal Clear [facility] Comment on above: Order Comment: For i ndwelling catheters, specimen collection is acceptable on catheter day 1 and 2 only. ? Performed By: #### U [id number] ####[facility] (DEFAULT)[address] [place] [address] Bacteria ABSENT Normal ABSENT [facility] Comment on above: Order Comment: For i ndwelling catheters, specimen collection is acceptable on catheter day 1 and 2 only. ? Performed By: #### U [id number] ####[facility] (DEFAULT)[address] [facility] [place] [address] Blood Urine Negative Normal Negative [facility] Comment on above: Order Comment: For i ndwelling catheters, specimen collection is acceptable on catheter day 1 and 2 only. ? Performed By: #### U [id number] ####[facility] (DEFAULT)[address] [facility] [place] [address] Color (U) Yellow Normal Yellow [facility] Comment on above: Order Comment: For i ndwelling catheters, specimen collection is acceptable on catheter day 1 and 2 only. ? Performed By: #### U [id number] ####[facility] (DEFAULT)[address] [place] [address] Glucose Ql (U) Negative Normal Negative [facility] Comment on above: Order Comment: For i ndwelling catheters, specimen collection is acceptable on catheter day 1 and 2 only. ? Performed By: #### U [id number] ####[facility] (DEFAULT)[address] [place] [address] Ketones Ql (U) Negative Normal Negative [facility] Comment on above: Order Comment: For i ndwelling catheters, specimen collection is acceptable on catheter day 1 and 2 only. ? Performed By: #### U [id number] ####[facility] (DEFAULT)[address] [place] [address] Leukocyte esterase Test strip Ql (U) Negative Normal Negative [facility] Comment on above: Order Comment: For i ndwelling catheters, specimen collection is acceptable on catheter day 1 and 2 only. ? Performed By: #### U [id number] ####[facility] (DEFAULT)[address] [place] [address] Nitrites Urine Negative Normal Negative [facility] Comment on above: Order Comment: For i ndwelling catheters, specimen collection is acceptable on catheter day 1 and 2 only. ? Performed By: #### U [id number] ####[facility] (DEFAULT)[address] [place] [address] pH (U) 5.5 [pH] Normal 5.0-7.0 [facility] Comment on above: Order Comment: For i ndwelling catheters, specimen collection is acceptable on catheter day 1 and 2 only. ? Performed By: #### U [id number] ####[facility] (DEFAULT)[address] [place] [address] Protein Urine Negative Normal Negative [facility] Comment on above: Order Comment: For i ndwelling catheters, specimen collection is acceptable on catheter day 1 and 2 only. ? Performed By: #### U [id number] ####[facility] (DEFAULT)[address] [place], [place] [address], [place] [address] RBC Urine 0-2 Normal 0-2 [facility] Comment on above: Order Comment: For i ndwelling catheters, specimen collection is acceptable on catheter day 1 and 2 only. ? Performed By: #### U [id number] ####[facility] (DEFAULT)[address] [place], [place] [address], [place] [address] Specific [place] Urine 1.020 Normal 1.001-1.035 [facility] Comment on above: Order Comment: For i ndwelling catheters, specimen collection is acceptable on catheter day 1 and 2 only. ? Performed By: #### U [id number] ####[facility] (DEFAULT)[address] [facility] [place] [address] Squamous/Epithelial Cells, Urine 0-2/hpf Normal 0-2/hpf, 3-5/hpf = 1+ [facility] Comment on above: Order Comment: For i ndwelling catheters, specimen collection is acceptable on catheter day 1 and 2 only. ? Performed By: #### U [id number] ####[facility] (DEFAULT)[address] [place] [address] Urobilinogen Urine 0.2 E.U./dL Normal 0.2 E.U/d L, 1.0 E.U/dL [facility] Comment on above: Order Comment: For i ndwelling catheters, specimen collection is acceptable on catheter day 1 and 2 only. ? Performed By: #### U [id number] ####[facility] (DEFAULT)[address] [place] [address] WBC Urine 0 - 5 Normal 0 - 5 [facility] Comment on above: Order Comment: For i ndwelling catheters, specimen collection is acceptable on catheter day 1 and 2 only. ? Performed By: #### U [id number] ####[facility] (DEFAULT)[address] [place] [address] L3400.8500on 12-24-2024 CMV Quant DNA Negative Normal Negative [facility] Comment on above: Order Comment: Test( s) [id number] (FK506), Bloodwas developed and its performance characteristicsdetermined by [facility]. It has not been cleared or approvedby the Food and Drug Administration. Result Comment: No C MV DNA detected.The quantitative range of this assay is 200 to 1 millionIU/mL. Performed By: #### L 3400.8500, L3380.1000, L500.4050, L100.0100, L501.2300, L501.5101, L501.4700, L501.5200 ####[facility] [address] [place], [place], [id number] CMV Quant DNA TNP Normal . [facility] Comment on above: Order Comment: Test( s) [id number] (FK506), Bloodwas developed and its performance characteristicsdetermined by [facility]. It has not been cleared or approvedby the Food and Drug Administration. Result Comment: Resu lt Units: log10 IU/mLUnable to calculate result since non-numeric resultobtained for component test. Performed By: #### L 3400.8500, L3380.1000, L500.4050, L100.0100, L501.2300, L501.5101, L501.4700, L501.5200 ####[facility] [address] [place], [address] L501.5101on 12-24-2024 GGTP 57 IU/L Normal 0-65 [facility] Comment on above: Order Comment: Test( s) [id number]-Lccrfdcdax (FK506), Bloodwas developed and its performance characteristicsdetermined by [facility]. It has not been cleared or approvedby the Food and Drug Administration. Result Comment: Perf ormed at: [facility] [address] [id number] Director: Red Graham PhD, Phone: [phone] at: [facility] [address] [id number] Director: Sergio Machado MD, Phone: [phone] Performed By: #### L 3400.8500, L3380.1000, L500.4050, L100.0100, L501.2300, L501.5101, L501.4700, L501.5200 ####[facility] [address] [facility] [place], [address] Tacrolimus (Prograf)on 12-24 Tacrolimus (Bld) [Mass/Vol] 5.2 ng/mL Normal 5.0-20.0 [facility] Comment on above: Order Comment: Test( s) [id number]-Yoypskicuh (FK506), Bloodwas developed and its performance characteristicsdetermined by [facility]. It has not been cleared or approvedby [...] L3380.1000, L500.4050, L100.0100, L501.2300, L501.5101, L501.4700, L501.5200 ####[facility] [address] [place], [address] CBC W/Diff, Automatedon 12-01 PATH REV Reviewed Normal [facility] Comment on above: Result Comment: LEUK OPENIA WITH ABSOLUTE NEUTROPENIA AND LYMPHOPENIA.RARE NEUTROPHILS DEMONSTRATE BLUE-GREEN CYTOPLASMICINCLUSIONS WHICH CAN BE SEEN WITH LIVER DISEASE AND SUGGESTA POOR PROGNOSIS.SEVERE NORMOCYTIC HYPOCHROMIC ANEMIA WITH MILD ANISOCYTOSIS,1+ OVALOCYTES AND 1+ TARGET CELLS.THROMBOCYTOSIS.Eulalia Bautista MD 12/22/2024 Performed By: #### L 3400.8500, L3380.1000, L500.4050, L100.0100, L501.2300, L501.5101, L501.4700, L501.5200 ####[facility] [address] [place], [address] Abdomen/Pelvis W IV Cont ONL Yon 12-21-2024 Abdomen/Pelvis W IV Cont ONLY Normal [facility] Absolute lymphocyte countOrd ered By: Michelle Barrera on 12-21-2024 Lymphocytes Auto (Unsp spec) [#/Vol] 0.86 10*3/uL 0.83-4.51 [facility] Absolute lymphocyte countOrd ered By: Robe Zavala on 12-21-2024 Lymphocytes Auto (Unsp spec) [#/Vol] 0.51 10*3/uL Low 0.83-4.51 [facility] Activated partial thrombopla stin time (aPTT) in platelet poor plasma by coagulation aOrdered By: Michelle Barrera on 12-21-2024 aPTT Coag (PPP) [Time] 39.2 s High 24.1-36.2 [facility] Ammoniaon 12-21-2024 Ammonia (P) [Moles/Vol] 11.6 umol/L Low 16-60 [facility] Comment on above: Performed By: #### B RC, BTS, L3380.1000, L300.4310, L503.5510, L100.0100, L300.3900 ####[facility] [address] [place], [address] Anion gap in Serum or Plasma Ordered By: Michelle Barrera on 12-21-2024 Anion gap [Moles/Vol] 10 mmol/L 07-14 [facility] Anion gap in Serum or Plasma Ordered By: Robe Zavala on 12-21-2024 Anion gap [Moles/Vol] 11 mmol/L 07-14 [facility] BRCon 12-21-2024 RC Normal [facility] Comment on above: Result Comment: [id number] OP RC TRANSFUSED 12/21/24 [id number] OP RC TRANSFUSED 12/21/24 1811 Performed By: #### B RC, BTS, L3380.1000, L300.4310, L503.5510, L100.0100, L300.3900 ####[facility] [address] [place], [address] BUN/creatinine ratioOrdered By: Michelle Barrera on 12-21-2024 Urea nitrogen/Creatinine [Mass ratio] 21.4 mg/mg High 12-19 [facility] BUN/creatinine ratioOrdered By: Robe Zavala on 12-21-2024 Urea nitrogen/Creatinine [Mass ratio] 20.6 mg/mg High 12-19 [facility] Basic Metabolic Profile (BMP )on 12-21-2024 BUN/CRE 21.4 RATIO High 12-19 [facility] Comment on above: Performed By: #### L 500.2500, L500.3400, L501.2450 ####[facility] [address] [place], [address] Calcium [Mass/Vol] 8.5 mg/dL Normal 7.6-11.0 [facility] Comment on above: Performed By: #### L 500.2500, L500.3400, L501.2450 ####[facility] [address] [place], [address] Chloride [Moles/Vol] 105 mmol/L Normal 98-108 [facility] Comment on above: Performed By: #### L 500.2500, L500.3400, L501.2450 ####[facility] [address] [place], [address] CO2 [Moles/Vol] 23.7 mmol/L Normal 21.0-32.0 [facility] Comment on above: Performed By: #### L 500.2500, L500.3400, L501.2450 ####[facility] [address] [place], [address] Creatinine [Mass/Vol] 1.38 mg/dL High 0.70-1.20 [facility] Comment on above: Performed By: #### L 500.2500, L500.3400, L501.2450 ####[facility] [address] [place], [address] ECRCL 35.75 ml/min Low 50-250 [facility] Comment on above: Performed By: #### L 500.2500, L500.3400, L501.2450 ####[facility] [address] [place], [address] GAP 10 Normal 5-15 [facility] Comment on above: Performed By: #### L 500.2500, L500.3400, L501.2450 ####[facility] [address] [place], [address] GFR/1.73 sq M.predicted among non-blacks MDRD (S/P/Bld) [Vol rate/Area] 59 mL/min/{1.73_m2} Low >60 [facility] Comment on above: Result Comment: mL/m in/1.73m2 CKD-EPI Creatinine Equation (2020) Performed By: #### L 500.2500, L500.3400, L501.2450 ####[facility] [address] [place], [address] Glucose [Mass/Vol] 94 mg/dL Normal 70-99 [facility] Comment on above: Performed By: #### L 500.2500, L500.3400, L501.2450 ####[facility] [address] [place], [address] Potassium [Moles/Vol] 4.3 mmol/L Normal 3.3-5.1 [facility] Comment on above: Performed By: #### L 500.2500, L500.3400, L501.2450 ####[facility] [address] [place], [address] Sodium [Moles/Vol] 139 mmol/L Normal 133-145 [facility] Comment on above: Performed By: #### L 500.2500, L500.3400, L501.2450 ####[facility] [address] [place], [address] Urea nitrogen [Mass/Vol] 30 mg/dL High 4-19 [facility] Comment on above: Performed By: #### L 500.2500, L500.3400, L501.2450 ####[facility] [address] [place], [address] Bilirubin Test strip Ql (U)O rdered By: Michelle Barrera on 12-21-2024 Bilirubin Ql (U) Negative Negative [facility] Bilirubin directOrdered By: Michelle Barrera on 12-21-2024 Bilirubin.direct [Mass/Vol] 0.12 mg/dL 0.00-0.30 [facility] Bilirubin, DirectOrdered By: Robe Zavala on 12-21-2024 Bilirubin.direct [Mass/Vol] 0.15 mg/dL Normal 0.00-0.30 [facility] Comment on above: Performed By: #### L 3400.8500, L3380.1000, L500.4050, L100.0100, L501.2300, L501.5101, L501.4700, L501.5200 ####[facility] [address] [place], [address] Bilirubin, totalOrdered By: Michelle Barrera on 12-21-2024 Bilirubin [Mass/Vol] 0.17 mg/dL 0.00-1.30 [facility] Blood band neutrophil count as percentage of total leukocytesOrdered By: Michelle Barrera on 12-21-2024 Band form neutrophils/100 WBC (Bld) 6 % High 0-5 [facility] Blood band neutrophil count as percentage of total leukocytesOrdered By: Robe Zavala on 12-21-2024 Band form neutrophils/100 WBC (Bld) 4 % 0-5 [facility] Blood eosinophils/100 leukoc ytesOrdered By: Michelle Barrera on 12-21-2024 Eosinophils/100 WBC (Bld) 1 % 0-5 [facility] Blood lymphocytes/100 leukoc ytesOrdered By: Michelle Barrera on 12-21-2024 Lymphocytes/100 WBC (Bld) 45 % High 19-41 [facility] Blood lymphocytes/100 leukoc ytesOrdered By: Robe Zavala on 12-21-2024 Lymphocytes/100 WBC (Bld) 36 % 19-41 [facility] Blood metamyelocytes/100 susy kocytesOrdered By: Robe Zavala on 12-21-2024 Metamyelocytes/100 WBC (Bld) 1 % 0-1 [facility] Blood monocytes/100 leukocyt esOrdered By: Michelle Barrera on 12-21-2024 Monocytes/100 WBC (Bld) 20 % High 0-10 [facility] Blood monocytes/100 leukocyt esOrdered By: Robe Zavala on 12-21-2024 Monocytes/100 WBC (Bld) 18 % High 0-10 [facility] Blood segmented neutrophils/ 100 leukocytesOrdered By: Michelle Barrera on 12-21-2024 Segmented neutrophils/100 WBC (Bld) 28 % Low 47-70 [facility] Blood segmented neutrophils/ 100 leukocytesOrdered By: Robe Zavala on 12-21-2024 Segmented neutrophils/100 WBC (Bld) 41 % Low 47-70 [facility] CBC W/Diff, Automatedon 12-01 Absolute Lymph 0.86 X10 3/uL Normal 0.83-4.51 [facility] Comment on above: Performed By: #### B RC, BTS, L3380.1000, L300.4310, L503.5510, L100.0100, L300.3900 ####[facility] [address] [place], [place], [phone] Absolute Neut 0.6 X10 3/uL Low 2.0-7.7 [facility] Comment on above: Performed By: #### B RC, BTS, L3380.1000, L300.4310, L503.5510, L100.0100, L300.3900 ####[facility] [address] [place], [place], [phone] PATH REV Reviewed Normal [facility] Comment on above: Result Comment: SEE REPORT IN PATIENT'S EMR AMENDED REPORT 12/21/24 1421 PATH REV previously reported as: June Performed By: #### L 501.4700, L3380.1000, L3400.8500, L501.5200, L500.4050, L100.0100, L501.5101, L501.2300 ####[facility] [address] [place], [place], [phone] Carbon dioxide, total [Moles /volume] in Central venous bloodOrdered By: Michelle Barrear on 12-21-2024 CO2 [Moles/Vol] 23.7 mmol/L 21.0-32.0 [facility] Chloride assayOrdered By: Hamzah Barrera on 12-21-2024 Chloride [Moles/Vol] 105 mmol/L 98-108 [facility] Comprehensive Metabolic Prof ilOrdered By: Robe Zavala on 12-21-2024 Albumin [Mass/Vol] 3.3 g/dL Low 3.4-4.8 [facility] Comment on above: Performed By: #### L 3400.8500, L3380.1000, L500.4050, L100.0100, L501.2300, L501.5101, L501.4700, L501.5200 ####[facility] [address] [place], [place], [phone] Albumin/Globulin [Mass ratio] 1.1 {ratio} Normal 0.9-2.4 [facility] Comment on above: Performed By: #### L 3400.8500, L3380.1000, L500.4050, L100.0100, L501.2300, L501.5101, L501.4700, L501.5200 ####[facility] [address] [place], [place], [phone] ALT [Catalytic activity/Vol] 22 U/L Normal <=46 [facility] Comment on above: Performed By: #### L 3400.8500, L3380.1000, L500.4050, L100.0100, L501.2300, L501.5101, L501.4700, L501.5200 ####[facility] [address] [place], [place], [phone] Bilirubin [Mass/Vol] 0.23 mg/dL Normal 0.00-1.30 [facility] Comment on above: Performed By: #### L 3400.8500, L3380.1000, L500.4050, L100.0100, L501.2300, L501.5101, L501.4700, L501.5200 ####[facility] [address] [place], [address] Calcium [Mass/Vol] 8.9 mg/dL Normal 7.6-11.0 [facility] Comment on above: Performed By: #### L 3400.8500, L3380.1000, L500.4050, L100.0100, L501.2300, L501.5101, L501.4700, L501.5200 ####[facility] [address] [place], [place], [phone] Chloride [Moles/Vol] 105 mmol/L Normal 98-108 [facility] Comment on above: Performed By: #### L 3400.8500, L3380.1000, L500.4050, L100.0100, L501.2300, L501.5101, L501.4700, L501.5200 ####[facility] [address] [place], [place], [phone]) CO2 [Moles/Vol] 21.7 mmol/L Normal 21.0-32.0 [facility] Comment on above: Performed By: #### L 3400.8500, L3380.1000, L500.4050, L100.0100, L501.2300, L501.5101, L501.4700, L501.5200 ####[facility] [address] [place], [place], [phone]) Creatinine [Mass/Vol] 1.53 mg/dL High 0.70-1.20 [facility] Comment on above: Performed By: #### L 3400.8500, L3380.1000, L500.4050, L100.0100, L501.2300, L501.5101, L501.4700, L501.5200 ####[facility] [address] [place], [place], [phone] GFR/1.73 sq M.predicted among non-blacks MDRD (S/P/Bld) [Vol rate/Area] 52 mL/min/{1.73_m2} Low >60 [facility] Comment on above: Result Comment: mL/m in/1.73m2 CKD-EPI Creatinine Equation (2020) Performed By: #### L 3400.8500, L3380.1000, L500.4050, L100.0100, L501.2300, L501.5101, L501.4700, L501.5200 ####[facility] [address] [place], [address] Globulin (S) [Mass/Vol] 3.0 g/dL Normal 2.2-4.2 [facility] Comment on above: Performed By: #### L 3400.8500, L3380.1000, L500.4050, L100.0100, L501.2300, L501.5101, L501.4700, L501.5200 ####[facility] [address] [place], [address] Glucose [Mass/Vol] 86 mg/dL Normal 70-99 [facility] Comment on above: Performed By: #### L 3400.8500, L3380.1000, L500.4050, L100.0100, L501.2300, L501.5101, L501.4700, L501.5200 ####[facility] [address] [place], [address] Sodium [Moles/Vol] 138 mmol/L Normal 133-145 [facility] Comment on above: Performed By: #### L 3400.8500, L3380.1000, L500.4050, L100.0100, L501.2300, L501.5101, L501.4700, L501.5200 ####[facility] [address] [place], [address] Urea nitrogen [Mass/Vol] 32 mg/dL High 4-19 [facility] Comment on above: Performed By: #### L 3400.8500, L3380.1000, L500.4050, L100.0100, L501.2300, L501.5101, L501.4700, L501.5200 ####[facility] [address] [place], [place], [phone] Comprehensive Metabolic Prof ilon 12-21-2024 ALK PHOS 859 U/L High 40-129 [facility] Comment on above: Performed By: #### L 3400.8500, L3380.1000, L500.4050, L100.0100, L501.2300, L501.5101, L501.4700, L501.5200 ####[facility] [address] [place], [place], [phone] AST [Catalytic activity/Vol] 20 U/L Normal <=37 [facility] Comment on above: Performed By: #### L 3400.8500, L3380.1000, L500.4050, L100.0100, L501.2300, L501.5101, L501.4700, L501.5200 ####[facility] [address] [place], [place], [phone] BUN/CRE 20.6 RATIO High 10-20 [facility] Comment on above: Performed By: #### L 3400.8500, L3380.1000, L500.4050, L100.0100, L501.2300, L501.5101, L501.4700, L501.5200 ####[facility] [address] [place], [place], [phone] ECRCL 32.94 ml/min Low 50-250 [facility] Comment on above: Performed By: #### L 3400.8500, L3380.1000, L500.4050, L100.0100, L501.2300, L501.5101, L501.4700, L501.5200 ####[facility] [address] [place], [place], [phone] GAP 11 Normal 5-15 [facility] Comment on above: Performed By: #### L 3400.8500, L3380.1000, L500.4050, L100.0100, L501.2300, L501.5101, L501.4700, L501.5200 ####[facility] [address] [place], [address] Potassium [Moles/Vol] 3.9 mmol/L Normal 3.3-5.1 [facility] Comment on above: Performed By: #### L 3400.8500, L3380.1000, L500.4050, L100.0100, L501.2300, L501.5101, L501.4700, L501.5200 ####[facility] [address] [place], [address] T PROT 6.3 g/dL Normal 5.9-8.4 [facility] Comment on above: Performed By: #### L 3400.8500, L3380.1000, L500.4050, L100.0100, L501.2300, L501.5101, L501.4700, L501.5200 ####[facility] [address] [place], [address] Cytomegalovirus (CMV) DNA me asurement by PCR (log units/volume)Ordered By: Robe Zavala on 12-21-2024 CMV DNA JACKY+probe (P) [Log units/Vol] TNP [facility] Dohle bodies detectionOrdere d By: Michelle Barrera on 12-21-2024 [facility] LM Ql (Bld) 3+ [facility] Doe bodies detectionOrdere d By: Robe Zavala on 12-21-2024 [facility] LM Ql (Bld) 2+ [facility] Emergency Department Summary on 12-21-2024 Emergency Department Summary Normal [facility] Erythrocyte distribution wid th ratioOrdered By: Michelle Barrera on 12-21-2024 Erythrocyte distribution width (RBC) [Ratio] 17.1 % High 11.6-14.6 [facility] Erythrocyte distribution wid th ratioOrdered By: Robe Zavala on 12-21-2024 Erythrocyte distribution width (RBC) [Ratio] 17.0 % High 11.6-14.6 [facility] Erythrocyte distribution wid th standard deviationOrdered By: Michelle Barrera on 12-21-2024 Erythrocyte distribution width (RBC) [Ratio] 55.7 fl High 35.1-43.9 [facility] Erythrocyte distribution wid th standard deviationOrdered By: Robe Zavala on 12-21-2024 Erythrocyte distribution width (RBC) [Ratio] 56.8 fl High 35.1-43.9 [facility] Gamma glutamyl transferase ( GGT) measurementOrdered By: Robe Zavala on 12-21-2024 Amylase [Catalytic activity/Vol] 57 U/L 0-65 [facility] Glomerular filtration rate ( GFR) estimation/1.73 sq m using serum, plasma, or whole bOrdered By: Michelle Barrera on 12-21-2024 GFR/1.73 sq M.predicted among non-blacks MDRD (S/P/Bld) [Vol rate/Area] 59 mL/min/{1.73_m2} Low >60 [facility] Hematocrit Auto (Bld) [Volum e fraction]Ordered By: Michelle Barrera on 12-21-2024 Hematocrit (Bld) [Volume fraction] 18.4 % Low 40-54 [facility] Hematocrit Auto (Bld) [Volum e fraction]Ordered By: Robe Zavala on 12-21-2024 Hematocrit (Bld) [Volume fraction] 19.5 % Low 40-54 [facility] Hemoglobin measurementOrdere d By: Michelle Barrera on 12-21-2024 Hemoglobin (Bld) [Mass/Vol] 5.6 g/dL Critically low 13.0-16.5 [facility] Hemoglobin measurementOrdere d By: Robe Zavala on 12-21-2024 Hemoglobin (Bld) [Mass/Vol] 5.8 g/dL Critically low 13.0-16.5 [facility] Ketones Test strip Ql (U)Ord ered By: Michelle Barrera on 12-21-2024 Ketones Ql (U) Negative Negative [facility] Lipaseon 12-21-2024 Lipase [Catalytic activity/Vol] 17 U/L Normal 13-75 [facility] Comment on above: Result Comment: Margarita bernard note:LIPASE revised reference range effective 22.New Lipase methodology. Expected to produce lower valuesthan the previous assay method.NEW Reference Range: 13 - 75 U/L Performed By: #### L 500.2500, L500.3400, L501.2450 ####[facility] [address] [place], [address] Liver Profileon 12-21-2024 Albumin [Mass/Vol] 3.3 g/dL Low 3.4-4.8 [facility] Comment on above: Performed By: #### L 500.2500, L500.3400, L501.2450 ####[facility] [address] [place], [address] ALK PHOS 829 U/L High 40-129 [facility] Comment on above: Performed By: #### L 500.2500, L500.3400, L501.2450 ####[facility] [address] [place], [address] ALT [Catalytic activity/Vol] 20 U/L Normal <=46 [facility] Comment on above: Performed By: #### L 500.2500, L500.3400, L501.2450 ####[facility] [address] [place], [address] AST [Catalytic activity/Vol] 17 U/L Normal <=37 [facility] Comment on above: Performed By: #### L 500.2500, L500.3400, L501.2450 ####[facility] [address] [place], [address] Bilirubin [Mass/Vol] 0.17 mg/dL Normal 0.00-1.30 [facility] Comment on above: Performed By: #### L 500.2500, L500.3400, L501.2450 ####[facility] [address] [place], [address] Bilirubin.direct [Mass/Vol] 0.12 mg/dL Normal 0.00-0.30 [facility] Comment on above: Performed By: #### L 500.2500, L500.3400, L501.2450 ####[facility] [address] [place], [address] Globulin (S) [Mass/Vol] 2.9 g/dL Normal 2.2-4.2 [facility] Comment on above: Performed By: #### L 500.2500, L500.3400, L501.2450 ####[facility] [address] [place], [address] T PROT 6.2 g/dL Normal 5.9-8.4 [facility] Comment on above: Performed By: #### L 500.2500, L500.3400, L501.2450 ####[facility] [address] [place], [address] MCV (mean corpuscular volume ) determinationOrdered By: Michelle Barrera on 12-21-2024 MCV (RBC) [Entitic vol] 90.2 fL 80-94 [facility] MCV (mean corpuscular volume ) determinationOrdered By: Robe Zavala on 12-21-2024 MCV (RBC) [Entitic vol] 90.7 fL 80-94 [facility] Magnesiumon 12-21-2024 Magnesium [Mass/Vol] 1.8 mg/dL Normal 1.5-2.2 [facility] Comment on above: Performed By: #### L 3400.8500, L3380.1000, L500.4050, L100.0100, L501.2300, L501.5101, L501.4700, L501.5200 ####[facility] [address] [place], [address] Magnesium measurement (mass/ volume)Ordered By: Robe Zavala on 12-21-2024 Magnesium (Unsp spec) [Mass/Vol] 1.8 mg/dL 1.5-2.2 [facility] Mean corpuscular hemoglobin (MCH) determinationOrdered By: Michelle Barrera on 12-21-2024 MCH (RBC) [Entitic mass] 27.5 pg 27.0-32.0 [facility] Mean corpuscular hemoglobin (MCH) determinationOrdered By: Robe Zavala on 12-21-2024 MCH (RBC) [Entitic mass] 27.0 pg 27.0-32.0 [facility] Mucus LM Ql (Urine sed)Order ed By: Michelle Barrera on 12-21-2024 Mucus Ql (Urine sed) 0 SEEN /hpf [facility] Nitrite Test strip Ql (U)Ord ered By: Michelle Barrera on 12-21-2024 Nitrite Ql (U) Negative Negative [facility] No Panel InformationOrdered By: Michelle Barrera on 12-21-2024 17 U/L <38 [facility] No Panel InformationOrdered By: Robe Zavala on 12-21-2024 1+ [facility] 20 U/L <38 [facility] Oncology Visit Reporton 12-01 Oncology Visit Report Normal [facility] Ovalocyte detectionOrdered B y: Michelle Barrera on 12-21-2024 Ovalocytes LM Ql (Bld) 1+ [facility] Partial Thromboplast Timeon 12-21-2024 aPTT Coag (Bld) [Time] 39.2 s High 24.1-36.2 [facility] Comment on above: Performed By: #### B RC, BTS, L3380.1000, L300.4310, L503.5510, L100.0100, L300.3900 ####[facility] [address] [place], [place], [id number] Phosphoruson 12-21-2024 Phosphate [Mass/Vol] 3.2 mg/dL Normal 2.7-4.5 [facility] Comment on above: Performed By: #### L 3400.8500, L3380.1000, L500.4050, L100.0100, L501.2300, L501.5101, L501.4700, L501.5200 ####[facility] [address] [place], [place], [phone] Platelet countOrdered By: Hamzah Barrera on 12-21-2024 Platelets (Bld) [#/Vol] 566 10*3/uL High 150-450 [facility] Platelet countOrdered By: Edwina Zavala on 12-21-2024 Platelets (Bld) [#/Vol] 597 10*3/uL High 150-450 [facility] [facility] Platelet estimateOrdered By: Michelle Barrera on 12-21-2024 Platelets LM Ql (Bld) ADEQUATE ADEQ [facility] Platelet morphologyOrdered B y: Michelle Barrera on 12-21-2024 Platelet morphology finding Nom (Bld) LARGE [facility] Potassium measurement (mass/ volume)Ordered By: Michelle Barrera on 12-21-2024 Potassium (Unsp spec) [Mass/Vol] 4.3 mmol/L 3.3-5.1 [facility] Potassium measurement (mass/ volume)Ordered By: Robe Zavala on 12-21-2024 Potassium (Unsp spec) [Mass/Vol] 3.9 mmol/L 3.3-5.1 [facility] Protein Test strip Ql (U)Ord ered By: Michelle Barrera on 12-21-2024 Protein Ql (U) 15 mg/dl High Negative [facility] Prothrombin Time w/INRon INR Coag (PPP) [Relative time] 1.2 {INR} Normal [facility] Comment on above: Performed By: #### B RC, BTS, L3380.1000, L300.4310, L503.5510, L100.0100, L300.3900 ####[facility] [address] [place], [place], [id number] PT Coag (PPP) [Time] 15.3 s High 11.7-14.9 [facility] Comment on above: Performed By: #### B RC, BTS, L3380.1000, L300.4310, L503.5510, L100.0100, L300.3900 ####[facility] [address] [place], [address] Prothrombin timeOrdered By: Michelle Barrera on 12-21-2024 PT Coag (PPP) [Time] 15.3 s High 11.7-14.9 [facility] RBC Auto (Bld) [#/Vol]Ordere d By: Michelle Barrera on 12-21-2024 RBC (Bld) [#/Vol] 2.04 10*6/uL Low 4.6-6.2 [facility] RBC Auto (Bld) [#/Vol]Ordere d By: Robe Zavala on 12-21-2024 RBC (Bld) [#/Vol] 2.15 10*6/uL Low 4.6-6.2 [facility] Review by pathologistOrdered By: Robe Zavala on 12-21-2024 Pathologist review Deandre (Unsp spec) [Interp] Reviewed [facility] Serum creatinine measurement (mass/volume)Ordered By: Michelle Barrera on 12-21-2024 Creatinine [Mass/Vol] 1.38 mg/dL High 0.70-1.20 [facility] Serum globulin measurementOr dered By: Michelle Barrera on 12-21-2024 Globulin (S) [Mass/Vol] 2.9 g/dL 2.2-4.2 [facility] Serum glucose measurement (m ass/volume)Ordered By: Michelle Barrera on 12-21-2024 Glucose [Mass/Vol] 94 mg/dL 70-99 [facility] Serum or plasma alanine craig otransferase (ALT) measurementOrdered By: Michelle Barrera on 12-21-2024 ALT [Catalytic activity/Vol] 20 U/L <47 [facility] Serum or plasma albumin megha urement (mass/volume)Ordered By: Michelle Barrera on 12-21-2024 Albumin [Mass/Vol] 3.3 g/dL Low 3.4-4.8 [facility] Serum or plasma alkaline sal sphatase measurementOrdered By: Michelle Barrera on 12-21-2024 ALP [Catalytic activity/Vol] 829 U/L High 40-129 [facility] Serum or plasma alkaline sal sphatase measurementOrdered By: Robe Zavala on 12-21-2024 ALP [Catalytic activity/Vol] 859 U/L High 40-129 [facility] Serum or plasma calcium megha urement (mass/volume)Ordered By: Michelle Barrera on 12-21-2024 Calcium [Mass/Vol] 8.5 mg/dL 7.6-11.0 [facility] Serum or plasma urea nitroge n measurement (mass/volume)Ordered By: Michelle Barrera on 12-21-2024 Urea nitrogen [Mass/Vol] 30 mg/dL High 4-19 [facility] Sodium levelOrdered By: Florentino Barrera on 12-21-2024 Sodium [Moles/Vol] 139 mmol/L 133-145 [facility] Squamous epithelial cells de tection in urine sediment by light microscopyOrdered By: Michelle Barrera on 12-21-2024 Epithelial cells.squamous LM Ql (Urine sed) 0-5 SEEN /hpf 0-5 [facility] Stool Occult Blood iFOBon STOB Normal [facility] Comment on above: Performed By: #### M 100.7900 ####[facility] [address] [place], [address] Stool gastrointestinal hemog lobin detection by immunologic methodOrdered By: Michelle Barrera on 12-21-2024 Lower GI hemoglobin IA Ql (Stl) Positive Abnormal [facility] Tacrolimus (Prograf)on 12-21 Tacrolimus Normal [facility] Comment on above: Result Comment: [facility] HAD THIS DRAWN THIS MORNING IN OUTPATIENT, [place] TOCANCEL PER JASBIR GLORIA, SHE WILL LET KNOW ONE HASALREADY BEEN COLLECTED TODAY. Performed By: #### B RC, BTS, L3380.1000, L300.4310, L503.5510, L100.0100, L300.3900 ####[facility] [address] [place], [address] Total cell countOrdered By: Michelle Barrera on 12-21-2024 Cells counted Molgen (Bld/Tiss) [#] 100 MANUAL DIFF [facility] Total proteinOrdered By: Maria Eugenia Barrera on 12-21-2024 Protein [Mass/Vol] 6.2 g/dL 5.9-8.4 [facility] Total proteinOrdered By: Victor Hugo Zavala on 12-21-2024 Protein [Mass/Vol] 6.3 g/dL 5.9-8.4 [facility] Toxic leukocyte granulation detectionOrdered By: Michelle Barrera on 12-21-2024 Toxic granules LM Ql (Bld) 2+ [facility] Type AND Screenon 12-21-2024 Ab SCREEN GEL Negative Normal [facility] Comment on above: Order Comment: CMV N EG? NNumber of units to transfuse: 2Reason for Ordering Blood: AcuteAre the blood/blood products to be transfused? YIs the patient having/had surgery? NWhen LindsayNY Performed By: #### B RC, BTS, L3380.1000, L300.4310, L503.5510, L100.0100, L300.3900 ####[facility] [address] [place], [address] Urinalysis, Completeon 12-21 EPI,SQUAMOUS 0-5 SEEN Normal 0-5 [facility] Comment on above: Order Comment: CLEAN CATCH Performed By: #### L 400.0001 ####[facility] [address] [place], [address] RBC 0-5 SEEN Normal 0-5 [facility] Comment on above: Order Comment: CLEAN CATCH Performed By: #### L 400.0001 ####[facility] [address] [place], [address] WBC 0-5 SEEN Normal 0-5 [facility] Comment on above: Order Comment: CLEAN CATCH Performed By: #### L 400.0001 ####[facility] [address] [place], [address] BACTERIA 0 SEEN Normal None Seen [facility] Comment on above: Order Comment: CLEAN CATCH Performed By: #### L 400.0001 ####[facility] [address] [place], [place], [phone] Mucus Ql (Urine sed) 0 SEEN Normal [facility] Comment on above: Order Comment: CLEAN CATCH Performed By: #### L 400.0001 ####[facility] [address] [place], [place], [phone] Urine clarityOrdered By: Maria Eugenia Barrera on 12-21-2024 Clarity (U) Clear Clear [facility] Urine color determinationOrd ered By: Michelle Barrera on 12-21-2024 Color (U) Yellow Yellow [facility] Urine glucose detectionOrder ed By: Michelle Barrera on 12-21-2024 Glucose Ql (U) Normal mg/dl Normal [facility] Urine leukocyte esterase det ection by dipstickOrdered By: Michelle Barrera on 12-21-2024 Leukocyte esterase Test strip Ql (U) Negative Negative [facility] Urine pHOrdered By: Michelle hood on 12-21-2024 pH (U) 6.0 [pH] 5.0 - 8.0 [facility] Urine sediment bacteria coun t by microscopy (number/high power field)Ordered By: Michelle Barrera on 12-21-2024 Bacteria LM.HPF (Urine sed) [#/Area] 0 /[HPF] None Seen [facility] Urine specific gravity measu rementOrdered By: Michelle Barrera on 12-21-2024 Specific gravity (U) [Rel density] 1.010 1.002-1.030 [facility] Urine urobilinogen measureme ntOrdered By: Michelle Barrera on 12-21-2024 Urobilinogen Ql (U) Normal mg/dl Normal [facility] Venous blood ammonia measure mentOrdered By: Michelle Barrera on 12-21-2024 Ammonia (P) [Moles/Vol] 11.6 umol/L Low 16-60 [facility] White blood cell (WBC) count Ordered By: Michelle Barrera on 10-22-2025 WBC (Bld) [#/Vol] 1.9 10*3/uL Low 4.4-11.0 [facility] White blood cell (WBC) count Ordered By: Robe Bosejacey on 12-21-2024 WBC (Bld) [#/Vol] 1.4 10*3/uL Critically low 4.4-11.0 [facility] White blood cell countOrdere d By: Mcihelleiftikhar Barrera on 12-21-2024 White blood cell count 0-5 SEEN /hpf 0-5 [facility] L3400.8500on 12-16-2024 CMV Quant DNA Positive Normal Negative [facility] Comment on above: Order Comment: Test( s) 010091-Zezhmmzlkh (FK506), Bloodwas developed and its performance characteristicsdetermined by [facility]. It has not been cleared or approvedby the Food and Drug Administration. Result Comment: CMV DNA detected.The quantitative range of this assay is 200 to 1 millionIU/mL. Performed By: #### L 501.4700, L3380.1000, L3400.8500, L501.5200, L500.4050, L100.0100, L501.5101, L501.2300 ####[facility] [address] [place], [place], [phone] CMV Quant DNA TNP Normal . [facility] Comment on above: Order Comment: Test( s) [id number]-Vnfczdpayy (FK506), Bloodwas developed and its performance characteristicsdetermined by [facility]. It has not been cleared or approvedby the Food and Drug Administration. Result Comment: Resu lt Units: log10 IU/mLUnable to calculate result since non-numeric resultobtained for component test. Performed By: #### L 501.4700, L3380.1000, L3400.8500, L501.5200, L500.4050, L100.0100, L501.5101, L501.2300 ####[facility] [address] [place], [place], [phone] L501.5101on 12-16-2024 GGTP 30 IU/L Normal 0-65 [facility] Comment on above: Order Comment: Test( s) [id number]-Euhmyjrmoe (FK506), Bloodwas developed and its performance characteristicsdetermined by [facility]. It has not been cleared or approvedby the Food and Drug Administration. Result Comment: Perf ormed at: CB - [facility] Center[facility]nekk[facility], [place] [id number] Director: Red Graham PhD, Phone: [phone] at: - [address] [id number] Director: Sergio Machado MD, Phone: [phone] Performed By: #### L 501.4700, L3380.1000, L3400.8500, L501.5200, L500.4050, L100.0100, L501.5101, L501.2300 ####[facility] [address] [facility] [place], [address] Tacrolimus (Prograf)on 12-16 Tacrolimus (Bld) [Mass/Vol] 5.5 ng/mL Normal 5.0-20.0 [facility] Comment on above: Order Comment: Test( s) [id number]-Ryshoiyjqu (FK506), Bloodwas developed and its performance characteristicsdetermined by [facility]. It has not been cleared or approvedby [...] L3380.1000, L3400.8500, L501.5200, L500.4050, L100.0100, L501.5101, L501.2300 ####[facility] [address] [place], [place], [phone] Absolute lymphocyte counton 12-14-2024 Lymphocytes Auto (Unsp spec) [#/Vol] 0.60 10*3/uL Low 0.83-4.51 [facility] Anion gap in Serum or Plasma on 12-14-2024 Anion gap [Moles/Vol] 9 mmol/L - [facility] BUN/creatinine ratioon 12-14 Urea nitrogen/Creatinine [Mass ratio] 23.6 mg/mg High 12-19 [facility] Bilirubin directon Bilirubin.direct [Mass/Vol] 0.11 mg/dL 0.00-0.30 [facility] Bilirubin, Directon 12-15-19 25 Bilirubin.direct [Mass/Vol] 0.11 mg/dL Normal 0.00-0.30 [facility] Comment on above: Performed By: #### L 501.4700, L3380.1000, L3400.8500, L501.5200, L500.4050, L100.0100, L501.5101, L501.2300 ####[facility] [address] [place], [place], [phone] Bilirubin, totalon Bilirubin [Mass/Vol] mg/dL 0.00-1.30 [facility] Blood band neutrophil count as percentage of total leukocyteson 12-14-2024 Band form neutrophils/100 WBC (Bld) 13 % High 0-5 [facility] Blood lymphocytes/100 leukoc yteson 12-14-2024 Lymphocytes/100 WBC (Bld) 19 % 19-41 [facility] Blood metamyelocytes/100 susy kocyteson 12-14-2024 Metamyelocytes/100 WBC (Bld) 1 % 0-1 [facility] Blood monocytes/100 leukocyt eson 12-14-2024 Monocytes/100 WBC (Bld) 12 % High 0-10 [facility] Blood segmented neutrophils/ 100 leukocyteson 12-14-2024 Segmented neutrophils/100 WBC (Bld) 55 % 47-70 [facility] Carbon dioxide, total [Moles /volume] in Central venous bloodon 12-14-2024 CO2 [Moles/Vol] 24.0 mmol/L 21.0-32.0 [facility] Chloride assayon 12-14-2024 Chloride [Moles/Vol] 107 mmol/L 98-108 [facility] Comprehensive Metabolic Prof ilon 12-14-2024 Albumin [Mass/Vol] 3.5 g/dL Normal 3.4-4.8 [facility] Comment on above: Performed By: #### L 501.4700, L3380.1000, L3400.8500, L501.5200, L500.4050, L100.0100, L501.5101, L501.2300 ####[facility] [address] [place], [place], [phone] Albumin/Globulin [Mass ratio] 1.2 {ratio} Normal 0.9-2.4 [facility] Comment on above: Performed By: #### L 501.4700, L3380.1000, L3400.8500, L501.5200, L500.4050, L100.0100, L501.5101, L501.2300 ####[facility] [address] [place], [place], [id number] ALK PHOS 741 U/L High 40-129 [facility] Comment on above: Performed By: #### L 501.4700, L3380.1000, L3400.8500, L501.5200, L500.4050, L100.0100, L501.5101, L501.2300 ####[facility] [address] [place], [place], [phone] ALT [Catalytic activity/Vol] 12 U/L Normal <=46 [facility] Comment on above: Performed By: #### L 501.4700, L3380.1000, L3400.8500, L501.5200, L500.4050, L100.0100, L501.5101, L501.2300 ####[facility] [address] [place], [address] AST [Catalytic activity/Vol] 22 U/L Normal <=37 [facility] Comment on above: Performed By: #### L 501.4700, L3380.1000, L3400.8500, L501.5200, L500.4050, L100.0100, L501.5101, L501.2300 ####[facility] [address] [place], [address] BUN/CRE 23.6 RATIO High 10-20 [facility] Comment on above: Performed By: #### L 501.4700, L3380.1000, L3400.8500, L501.5200, L500.4050, L100.0100, L501.5101, L501.2300 ####[facility] [address] [place], [address] Calcium [Mass/Vol] 8.9 mg/dL Normal 7.6-11.0 [facility] Comment on above: Performed By: #### L 501.4700, L3380.1000, L3400.8500, L501.5200, L500.4050, L100.0100, L501.5101, L501.2300 ####[facility] [address] [place], [address] Chloride [Moles/Vol] 107 mmol/L Normal 98-108 [facility] Comment on above: Performed By: #### L 501.4700, L3380.1000, L3400.8500, L501.5200, L500.4050, L100.0100, L501.5101, L501.2300 ####[facility] [address] [place], [address] CO2 [Moles/Vol] 24.0 mmol/L Normal 21.0-32.0 [facility] Comment on above: Performed By: #### L 501.4700, L3380.1000, L3400.8500, L501.5200, L500.4050, L100.0100, L501.5101, L501.2300 ####[facility] [address] [place], [place], [phone] Creatinine [Mass/Vol] 1.13 mg/dL Normal 0.70-1.20 [facility] Comment on above: Performed By: #### L 501.4700, L3380.1000, L3400.8500, L501.5200, L500.4050, L100.0100, L501.5101, L501.2300 ####[facility] [address] [place], [place], [phone] GAP 9 Normal 5-15 [facility] Comment on above: Performed By: #### L 501.4700, L3380.1000, L3400.8500, L501.5200, L500.4050, L100.0100, L501.5101, L501.2300 ####[facility] [address] [place], [place], [phone] GFR/1.73 sq M.predicted among non-blacks MDRD (S/P/Bld) [Vol rate/Area] 74 mL/min/{1.73_m2} Normal >60 [facility] Comment on above: Result Comment: mL/m in/1.73m2 CKD-EPI Creatinine Equation (2020) Performed By: #### L 501.4700, L3380.1000, L3400.8500, L501.5200, L500.4050, L100.0100, L501.5101, L501.2300 ####[facility] [address] [place], [place], [phone] Globulin (S) [Mass/Vol] 2.9 g/dL Normal 2.2-4.2 [facility] Comment on above: Performed By: #### L 501.4700, L3380.1000, L3400.8500, L501.5200, L500.4050, L100.0100, L501.5101, L501.2300 ####[facility] [address] [place], [address] Glucose [Mass/Vol] 109 mg/dL High 70-99 [facility] Comment on above: Performed By: #### L 501.4700, L3380.1000, L3400.8500, L501.5200, L500.4050, L100.0100, L501.5101, L501.2300 ####[facility] [address] [place], [address] Potassium [Moles/Vol] 4.4 mmol/L Normal 3.3-5.1 [facility] Comment on above: Performed By: #### L 501.4700, L3380.1000, L3400.8500, L501.5200, L500.4050, L100.0100, L501.5101, L501.2300 ####[facility] [address] [place], [address] Sodium [Moles/Vol] 140 mmol/L Normal 133-145 [facility] Comment on above: Performed By: #### L 501.4700, L3380.1000, L3400.8500, L501.5200, L500.4050, L100.0100, L501.5101, L501.2300 ####[facility] [address] [place], [address] T BILI < 0.15 Normal 0.00-1.30 [facility] Comment on above: Performed By: #### L 501.4700, L3380.1000, L3400.8500, L501.5200, L500.4050, L100.0100, L501.5101, L501.2300 ####[facility] [address] [place], [address] T PROT 6.4 g/dL Normal 5.9-8.4 [facility] Comment on above: Performed By: #### L 501.4700, L3380.1000, L3400.8500, L501.5200, L500.4050, L100.0100, L501.5101, L501.2300 ####[facility] [address] [place], [address] Urea nitrogen [Mass/Vol] 27 mg/dL High 4-19 [facility] Comment on above: Performed By: #### L 501.4700, L3380.1000, L3400.8500, L501.5200, L500.4050, L100.0100, L501.5101, L501.2300 ####[facility] [address] [place], [place], [phone] Cytomegalovirus (CMV) DNA me asurement by PCR (log units/volume)on 12-14-2024 CMV DNA JACKY+probe (P) [Log units/Vol] TNP [facility] Erythrocyte distribution wid th ratioon 12-14-2024 Erythrocyte distribution width (RBC) [Ratio] 16.5 % High 11.6-14.6 [facility] Erythrocyte distribution wid th standard deviationon 12-14-2024 Erythrocyte distribution width (RBC) [Ratio] 56.6 fl High 35.1-43.9 [facility] Erythrocyte morphology asses smenton 12-14-2024 RBC morphology finding Nom (Bld) NORM C+C NORMAL NORM C&C [facility] Gamma glutamyl transferase ( GGT) measurementon 12-14-2024 Amylase [Catalytic activity/Vol] 30 U/L 0-65 [facility] Glomerular filtration rate ( GFR) estimation/1.73 sq m using serum, plasma, or whole bon 12-14-2024 GFR/1.73 sq M.predicted among non-blacks MDRD (S/P/Bld) [Vol rate/Area] 74 mL/min/{1.73_m2} >60 [facility] Hematocrit Auto (Bld) [Volum e fraction]on 12-14-2024 Hematocrit (Bld) [Volume fraction] 20.0 % Low 40-54 [facility] Hemoglobin measurementon Hemoglobin (Bld) [Mass/Vol] 6.1 g/dL Low 13.0-16.5 [facility] MCV (mean corpuscular volume ) determinationon 12-14-2024 MCV (RBC) [Entitic vol] 94.3 fL High 80-94 [facility] Magnesiumon 12-14-2024 Magnesium [Mass/Vol] 2.1 mg/dL Normal 1.5-2.2 [facility] Comment on above: Performed By: #### L 501.4700, L3380.1000, L3400.8500, L501.5200, L500.4050, L100.0100, L501.5101, L501.2300 ####[facility] [address] [place], [place], [phone] Magnesium measurement (mass/ volume)on 12-14-2024 Magnesium (Unsp spec) [Mass/Vol] 2.1 mg/dL 1.5-2.2 [facility] Mean corpuscular hemoglobin (MCH) determinationon 12-14-2024 MCH (RBC) [Entitic mass] 28.8 pg 27.0-32.0 [facility] No Panel Informationon 12-14 22 U/L <38 [facility] Phosphoruson 12-14-2024 Phosphate [Mass/Vol] 3.6 mg/dL Normal 2.7-4.5 [facility] Comment on above: Performed By: #### L 501.4700, L3380.1000, L3400.8500, L501.5200, L500.4050, L100.0100, L501.5101, L501.2300 ####[facility] [address] [place], [place], [phone] Platelet counton 12-14-2024 Platelets (Bld) [#/Vol] 444 10*3/uL 150-450 [facility] Platelet estimateon 12-15-19 25 Platelets LM Ql (Bld) ADEQUATE ADEQ [facility] Potassium measurement (mass/ volume)on 12-14-2024 Potassium (Unsp spec) [Mass/Vol] 4.4 mmol/L 3.3-5.1 [facility] RBC Auto (Bld) [#/Vol]on RBC (Bld) [#/Vol] 2.12 10*6/uL Low 4.6-6.2 [facility] Review by pathologiston 11-30 Pathologist review Deandre (Unsp spec) [Interp] Reviewed [facility] Serum creatinine measurement (mass/volume)on 12-14-2024 Creatinine [Mass/Vol] 1.13 mg/dL 0.70-1.20 [facility] Serum globulin measurementon 12-14-2024 Globulin (S) [Mass/Vol] 2.9 g/dL 2.2-4.2 [facility] Serum glucose measurement (m ass/volume)on 12-14-2024 Glucose [Mass/Vol] 109 mg/dL High 70-99 [facility] Serum or plasma alanine craig otransferase (ALT) measurementon 12-14-2024 ALT [Catalytic activity/Vol] 12 U/L <47 [facility] Serum or plasma albumin megha urement (mass/volume)on 12-14-2024 Albumin [Mass/Vol] 3.5 g/dL 3.4-4.8 [facility] Serum or plasma albumin/glob ulin mass ratioon 12-14-2024 Albumin/Globulin [Mass ratio] 1.2 {ratio} 0.9-2.4 [facility] Serum or plasma alkaline sal sphatase measurementon 12-14-2024 ALP [Catalytic activity/Vol] 741 U/L High 40-129 [facility] Serum or plasma calcium megha urement (mass/volume)on 12-14-2024 Calcium [Mass/Vol] 8.9 mg/dL 7.6-11.0 [facility] Serum or plasma urea nitroge n measurement (mass/volume)on 12-14-2024 Urea nitrogen [Mass/Vol] 27 mg/dL High 4-19 [facility] Sodium levelon 12-14-2024 Sodium [Moles/Vol] 140 mmol/L 133-145 [facility] Total cell counton Cells counted Molgen (Bld/Tiss) [#] 100 MANUAL DIFF [facility] Total proteinon 12-14-2024 Protein [Mass/Vol] 6.4 g/dL 5.9-8.4 [facility] White blood cell (WBC) count on 12-14-2024 WBC (Bld) [#/Vol] 2.9 10*3/uL Low 4.4-11.0 [facility] L3400.8500on 12-11-2024 CMV Quant DNA Positive Normal Negative [facility] Comment on above: Order Comment: Test( s) [id number]-Dtpemaaagy (FK506), Bloodwas developed and its performance characteristicsdetermined by [facility]. It has not been cleared or approvedby the Food and Drug Administration. Result Comment: CMV DNA detected.The quantitative range of this assay is 200 to 1 millionIU/mL. Performed By: #### L 100.0100, L501.5101, L501.4700, L501.2300, L3400.8500, L501.5200, L3380.1000 ####[facility] [address] [place], [place], [id number] CMV Quant DNA TNP Normal . [facility] Comment on above: Order Comment: Test( s) [id number] (FK506), Bloodwas developed and its performance characteristicsdetermined by [facility]. It has not been cleared or approvedby the Food and Drug Administration. Result Comment: Resu lt Units: log10 IU/mLUnable to calculate result since non-numeric resultobtained for component test. Performed By: #### L 100.0100, L501.5101, L501.4700, L501.2300, L3400.8500, L501.5200, L3380.1000 ####[facility] [address] [place], [place], [address] L501.5101on 12-11-2024 GGTP 32 IU/L Normal 0-65 [facility] Comment on above: Order Comment: Test( s) [id number]-Nofnhrayao (FK506), Bloodwas developed and its performance characteristicsdetermined by [facility]. It has not been cleared or approvedby the Food and Drug Administration. Result Comment: Perf ormed at: [facility], [place] [id number] Director: Red Graham PhD, Phone: [phone] at: [facility] [address] [id number] Director: Sergio Machado MD, Phone: [phone] Performed By: #### L 100.0100, L501.5101, L501.4700, L501.2300, L3400.8500, L501.5200, L3380.1000 ####[facility] [address] [place], [address] Tacrolimus (Prograf)on 12-11 Tacrolimus (Bld) [Mass/Vol] 4.6 ng/mL Low 5.0-20.0 [facility] Comment on above: Order Comment: Test( s) [id number]-Bbxfsxlhhd (FK506), Bloodwas developed and its performance characteristicsdetermined by [facility]. It has not been cleared or approvedby [...] 100.0100, L501.5101, L501.4700, L501.2300, L3400.8500, L501.5200, L3380.1000 ####[facility] [address] [place], [address] Carcinoembryonic Antigenon 1 CEA 1.6 ng/mL Normal 0.0-4.7 [facility] Comment on above: Result Comment: Nons mokers <3.9 Smokers <5.6[employer] Electrochemiluminescence Immunoassay(ECLIA)Values obtained with different assay methods or kitscannot be used interchangeably. Results cannot beinterpreted as absolute evidence of the presence orabsence of malignant disease.Performed at: [address] [id number] Director: Red Graham PhD, Phone: [phone] Performed By: #### L 503.6550, L503.6030, L100.9950, L3100.2300 ####[facility] [address] [place], [place], [id number] Bilirubin, Directon 12-08-19 Bilirubin.direct [Mass/Vol] 0.11 mg/dL Normal 0.00-0.30 [facility] Comment on above: Performed By: #### L 100.0100, L501.5101, L501.4700, L501.2300, L3400.8500, L501.5200, L3380.1000 ####[facility] [address] [place], [place], [phone] Blood basophils/100 leukocyt eson 12-07-2024 Basophils/100 WBC (Bld) 2 % High 0-1 [facility] Blood polychromasia detectio n by light microscopyon 12-07-2024 Polychromasia LM Ql (Bld) 1+ [facility] CBC W/Diff, Automatedon Absolute Lymph 0.61 X10 3/uL Low 0.83-4.51 [facility] Comment on above: Order Comment: GURVINDER SEND CBCD RESULTS TO DR. ZAVALA Performed By: #### L 100.0100, L501.5101, L501.4700, L501.2300, L3400.8500, L501.5200, L3380.1000 ####[facility] [address] [place], [place], [phone](368) Absolute Neut 1.2 X10 3/uL Low 2.0-7.7 [facility] Comment on above: Order Comment: GURVINDER SEND CBCD RESULTS TO DR. ZAVALA Performed By: #### L 100.0100, L501.5101, L501.4700, L501.2300, L3400.8500, L501.5200, L3380.1000 ####[facility] [address] [place], [address] Dohle bodies detectionon Dohle body LM Ql (Bld) 2+ [facility] Ferritinon 12-07-2024 Ferritin [Mass/Vol] 32 ng/mL Low 37-417 [facility] Comment on above: Performed By: #### L 503.6550, L503.6030, L100.9950, L3100.2300 ####[facility] [address] [place], [address] Iron measurement (mass/mass) Ordered By: Robe Zavala on 12-07-2024 Iron (Unsp spec) [Mass/Mass] 13 ug/dL Low 65-175 [facility] Iron+Iron Binding Capacityon 12-07-2024 Iron [Mass/Vol] 13 ug/dL Low 65-175 [facility] Comment on above: Performed By: #### L 503.6550, L503.6030, L100.9950, L3100.2300 ####[facility] [address] [place], [address] IRON SATURATION 4.7 Low 9-55 [facility] Comment on above: Performed By: #### L 503.6550, L503.6030, L100.9950, L3100.2300 ####[facility] [address] [place], [address] TIBC 269 ug/dL Normal 250-450 [facility] Comment on above: Performed By: #### L 503.6550, L503.6030, L100.9950, L3100.2300 ####[facility] [address] [place], [address] UIBC 256 ug/dL Normal 228-428 [facility] Comment on above: Performed By: #### L 503.6550, L503.6030, L100.9950, L3100.2300 ####[facility] [address] [place], [address] Magnesiumon 12-07-2024 Magnesium [Mass/Vol] 1.8 mg/dL Normal 1.5-2.2 [facility] Comment on above: Performed By: #### L 100.0100, L501.5101, L501.4700, L501.2300, L3400.8500, L501.5200, L3380.1000 ####[facility] [address] [place], [place], [address] No Panel InformationOrdered By: Robe Zavala on 12-07-2024 256 ug/dL 228-428 [facility] Ovalocyte detectionon 2024 Ovalocytes LM Ql (Bld) 1+ [facility] Phosphoruson 12-07-2024 Phosphate [Mass/Vol] 3.0 mg/dL Normal 2.7-4.5 [facility] Comment on above: Performed By: #### L 100.0100, L501.5101, L501.4700, L501.2300, L3400.8500, L501.5200, L3380.1000 ####[facility] [address] [place], [address] Retic Panelon 12-07-2024 IM RET FRACTION 7.90 Normal 3.00-15.90 [facility] Comment on above: Performed By: #### L 503.6550, L503.6030, L100.9950, L3100.2300 ####[facility] [address] [place], [address] RET-HE 23.8 pg Low 30-35 [facility] Comment on above: Performed By: #### L 503.6550, L503.6030, L100.9950, L3100.2300 ####[facility] [address] [place], [address] Retic Count 1.40 Normal 0.5-1.5 [facility] Comment on above: Performed By: #### L 503.6550, L503.6030, L100.9950, L3100.2300 ####[facility] [address] [place], [address] Reticulocyte hemoglobin equi valent (RET-He) measurementOrdered By: Robe Zavala on 12-07-2024 Hemoglobin (Reticulocytes) [Entitic mass] 23.8 pg Low 30-35 [facility] Reticulocytes Auto (Bld) [#/ Vol]Ordered By: Robe Zavala on 12-07-2024 Reticulocytes/100 RBC (Bld) 1.40 % 0.5-1.5 [facility] Serum or plasma carcinoembry onic antigen measurement (mass/volume)Ordered By: [facility] on 12-07-2024 Carcinoembryonic Ag [Mass/Vol] 1.6 ng/mL 0.0-4.7 [facility] Serum or plasma ferritin timmy surement (mass/volume)Ordered By: [facility] Z[facility]ala on 12-07-2024 Ferritin [Mass/Vol] 32 ng/mL Low 37-417 [facility] Serum or plasma iron saturat ion measurement (mass fraction)Ordered By: [facility] Z[facility]ala on 12-07-2024 Iron saturation [Mass fraction] 4.7 % Low 9-55 [facility] L3400.8500on 12-04-2024 CMV Quant DNA Negative Normal Negative [facility] Comment on above: Order Comment: Test( s) [id number] (FK506), Bloodwas developed and its performance characteristicsdetermined by [facility]. It has not been cleared or approvedby the Food and Drug Administration. Result Comment: No C MV DNA detected.The quantitative range of this assay is 200 to 1 millionIU/mL. Performed By: #### L 3380.1000, L501.2300, L100.0100, L501.4700, L3400.8500, L501.5101, L500.4050, L501.5200 ####[facility] [address] [place], [address] CMV Quant DNA TNP Normal . [facility] Comment on above: Order Comment: Test( s) [id number]-Orsvooplfv (FK506), Bloodwas developed and its performance characteristicsdetermined by [employer]. It has not been cleared or approvedby the Food and Drug Administration. Result Comment: Resu lt Units: log10 IU/mLUnable to calculate result since non-numeric resultobtained for component test. Performed By: #### L 3380.1000, L501.2300, L100.0100, L501.4700, L3400.8500, L501.5101, L500.4050, L501.5200 ####[facility] [address] [place], [address] L501.5101on 12-04-2024 GGTP 29 IU/L Normal 0-65 [facility] Comment on above: Order Comment: Test( s) [id number]-Idepwprazu (FK506), Bloodwas developed and its performance characteristicsdetermined by [facility]. It has not been cleared or approvedby the Food and Drug Administration. Result Comment: Perf ormed at: [address] [id number] Director: Red Graham PhD, Phone: [phone] at: [address] [id number] Director: Sergio Machado MD, Phone: [phone] Performed By: #### L 3380.1000, L501.2300, L100.0100, L501.4700, L3400.8500, L501.5101, L500.4050, L501.5200 ####[facility] [address] [place], [address] Tacrolimus (Prograf)on 12-04 Tacrolimus (Bld) [Mass/Vol] 4.9 ng/mL Low 5.0-20.0 [facility] Comment on above: Order Comment: Test( s) [id number]-Wjluecrevl (FK506), Bloodwas developed and its performance characteristicsdetermined by [facility]. It has not been cleared or approvedby [...] L501.2300, L100.0100, L501.4700, L3400.8500, L501.5101, L500.4050, L501.5200 ####[facility] [address] [place], [address] Absolute lymphocyte counton 11-30-2024 Lymphocytes Auto (Unsp spec) [#/Vol] 1.13 10*3/uL 0.83-4.51 [facility] Absolute neutrophil counton 11-30-2024 Neutrophils (Bld) [#/Vol] 1.0 10*3/uL Low 2.0-7.7 [facility] Anion gap in Serum or Plasma on 11-30-2024 Anion gap [Moles/Vol] 11 mmol/L 5- [facility] BUN/creatinine ratioon 11-30 Urea nitrogen/Creatinine [Mass ratio] 22.3 mg/mg High 12-19 [facility] Bilirubin directon Bilirubin.direct [Mass/Vol] 0.39 mg/dL High 0.00-0.30 [facility] Comment on above: Performed By: #### L 3380.1000, L501.2300, L100.0100, L501.4700, L3400.8500, L501.5101, L500.4050, L501.5200 ####[facility] [address] [place], [place], [id number] Bilirubin, totalon Bilirubin [Mass/Vol] 0.25 mg/dL Normal 0.00-1.30 [facility] Comment on above: Performed By: #### L 3380.1000, L501.2300, L100.0100, L501.4700, L3400.8500, L501.5101, L500.4050, L501.5200 ####[facility] [address] [place], [place], [address] Blood band neutrophil count as percentage of total leukocyteson 11-30-2024 Band form neutrophils/100 WBC (Bld) 3 % 0-5 [facility] Blood lymphocytes/100 leukoc yteson 11-30-2024 Lymphocytes/100 WBC (Bld) 46 % High 19-41 [facility] Blood metamyelocytes/100 susy kocyteson 11-30-2024 Metamyelocytes/100 WBC (Bld) 5 % High 0-1 [facility] Blood monocytes/100 leukocyt eson 11-30-2024 Monocytes/100 WBC (Bld) 8 % 0-10 [facility] Blood segmented neutrophils/ 100 leukocyteson 11-30-2024 Segmented neutrophils/100 WBC (Bld) 37 % Low 47-70 [facility] CBC W/Diff, Automatedon Absolute Lymph 1.13 X10 3/uL Normal 0.83-4.51 [facility] Comment on above: Performed By: #### L 3380.1000, L501.2300, L100.0100, L501.4700, L3400.8500, L501.5101, L500.4050, L501.5200 ####[facility] [address] [place], [place], [id number] Absolute Neut 1.0 X10 3/uL Low 2.0-7.7 [facility] Comment on above: Performed By: #### L 3380.1000, L501.2300, L100.0100, L501.4700, L3400.8500, L501.5101, L500.4050, L501.5200 ####[facility] [address] [place], [place], [address] Carbon dioxide, total [Moles /volume] in Central venous bloodon 11-30-2024 CO2 [Moles/Vol] 21.9 mmol/L Normal 21.0-32.0 [facility] Comment on above: Performed By: #### L 3380.1000, L501.2300, L100.0100, L501.4700, L3400.8500, L501.5101, L500.4050, L501.5200 ####[facility] [address] [place], [place], [address] Chloride assayon 11-30-2024 Chloride [Moles/Vol] 108 mmol/L Normal 98-108 [facility] Comment on above: Performed By: #### L 3380.1000, L501.2300, L100.0100, L501.4700, L3400.8500, L501.5101, L500.4050, L501.5200 ####[facility] [address] [place], [place], [address] Comprehensive Metabolic Prof ilon 11-30-2024 ALK PHOS 470 U/L High 40-129 [facility] Comment on above: Performed By: #### L 3380.1000, L501.2300, L100.0100, L501.4700, L3400.8500, L501.5101, L500.4050, L501.5200 ####[facility] [address] [place], [place], [phone] BUN/CRE 22.3 RATIO High 10-20 [facility] Comment on above: Performed By: #### L 3380.1000, L501.2300, L100.0100, L501.4700, L3400.8500, L501.5101, L500.4050, L501.5200 ####[facility] [address] [place], [address] GAP 11 Normal 5-15 [facility] Comment on above: Performed By: #### L 3380.1000, L501.2300, L100.0100, L501.4700, L3400.8500, L501.5101, L500.4050, L501.5200 ####[facility] [address] [place], [address] Potassium [Moles/Vol] 4.4 mmol/L Normal 3.3-5.1 [facility] Comment on above: Performed By: #### L 3380.1000, L501.2300, L100.0100, L501.4700, L3400.8500, L501.5101, L500.4050, L501.5200 ####[facility] [address] [place], [address] T PROT 6.7 g/dL Normal 5.9-8.4 [facility] Comment on above: Performed By: #### L 3380.1000, L501.2300, L100.0100, L501.4700, L3400.8500, L501.5101, L500.4050, L501.5200 ####[facility] [address] [place], [address] AST [Catalytic activity/Vol] 19 U/L Normal <=37 [facility] Comment on above: Performed By: #### L 3380.1000, L501.2300, L100.0100, L501.4700, L3400.8500, L501.5101, L500.4050, L501.5200 ####[facility] [address] [place], [address] Dohle bodies detectionon Dohle body LM Ql (Bld) 2+ [facility] Erythrocyte distribution wid th ratioon 11-30-2024 Erythrocyte distribution width (RBC) [Ratio] 16.7 % High 11.6-14.6 [facility] Erythrocyte distribution wid th standard deviationon 11-30-2024 Erythrocyte distribution width (RBC) [Ratio] 59.2 fl High 35.1-43.9 [facility] Glomerular filtration rate ( GFR) estimation/1.73 sq m using serum, plasma, or whole bon 11-30-2024 GFR/1.73 sq M.predicted among non-blacks MDRD (S/P/Bld) [Vol rate/Area] 76 mL/min/{1.73_m2} Normal >60 [facility] Comment on above: mL/min/1.73m2 CKD-EP I Creatinine Equation (2020) Result Comment: mL/m in/1.73m2 CKD-EPI Creatinine Equation (2020) Performed By: #### L 3380.1000, L501.2300, L100.0100, L501.4700, L3400.8500, L501.5101, L500.4050, L501.5200 ####[facility] [address] [place], [address] Hematocrit Auto (Bld) [Volum e fraction]on 11-30-2024 Hematocrit (Bld) [Volume fraction] 23.6 % Low 40-54 [facility] Hemoglobin measurementon Hemoglobin (Bld) [Mass/Vol] 7.3 g/dL Low 13.0-16.5 [facility] L3410.9992on 11-30-2024 [facility] Misc. COMMENT Normal . [facility] Comment on above: Order Comment: [id number] 4PEth LAV WB RMT Result Comment: Test Ordered: [id number] Phosphatidylethanol (PEth)PHOSPHATIDYLETHANOL Negative MX Reference Range: .Phosphatidylethanol (PEth) Negative ng/mL MX Reference Range: .Analyzed compound: PEth 16:0/18:1. 0-llrqvojcq-6-qedihe-is-nacbizh-3-phosphoethanol.Analysis performed by Liquid Chromatography withTandem Mass Spectrometry [...] was developed and its performance characteristicsdetermined by [facility]. It has not been cleared or approvedby the Food and Drug Administration.Performed at: [facility] [place] [id number] Director: Clau Abdalla [facility], Phone: [phone] at: [facility] [employer] [id number] Director: Red Graham PhD, Phone: [phone] Performed By: #### L 500.4050, L3410.9992, L501.2300, L3890.6102, L501.5200, L3410.9994, L501.4700, L500.4100, L100.0100, L501.5101, L3380.1000, L3400.8500 ####[facility] [address] [facility] [place], [place], [id number] MCV (mean corpuscular volume ) determinationon 11-30-2024 MCV (RBC) [Entitic vol] 96.3 fL High 80-94 [facility] Magnesiumon 11-30-2024 Magnesium [Mass/Vol] 2.1 mg/dL Normal 1.5-2.2 [facility] Comment on above: Performed By: #### L 3380.1000, L501.2300, L100.0100, L501.4700, L3400.8500, L501.5101, L500.4050, L501.5200 ####[facility] [address] [place], [place], [id number] Magnesium measurement (mass/ volume)on 11-30-2024 Magnesium (Unsp spec) [Mass/Vol] 2.1 mg/dL 1.5-2.2 [facility] Mean corpuscular hemoglobin (MCH) determinationon 11-30-2024 MCH (RBC) [Entitic mass] 29.8 pg 27.0-32.0 [facility] Mean corpuscular hemoglobin concentration (MCHC) determinationon 11-30-2024 MCHC (RBC) [Mass/Vol] 30.9 g/dL Low 32-36 [facility] Mean platelet volume determi nationon 11-30-2024 Platelet mean volume (Bld) [Entitic vol] 9.8 fL 6.2-12.0 [facility] Myelocyte %on 11-30-2024 Myelocytes/100 WBC (Bld) 1 % High 0-0 [facility] Ovalocyte detectionon 2024 Ovalocytes LM Ql (Bld) 1+ [facility] Phosphoruson 11-30-2024 Phosphate [Mass/Vol] 3.2 mg/dL Normal 2.7-4.5 [facility] Comment on above: Performed By: #### L 3380.1000, L501.2300, L100.0100, L501.4700, L3400.8500, L501.5101, L500.4050, L501.5200 ####[facility] [address] [place], [place], [address] Platelet counton 11-30-2024 Platelets (Bld) [#/Vol] 480 10*3/uL High 150-450 [facility] Potassium measurement (mass/ volume)on 11-30-2024 Potassium (Unsp spec) [Mass/Vol] 4.4 mmol/L 3.3-5.1 [facility] RBC Auto (Bld) [#/Vol]on RBC (Bld) [#/Vol] 2.45 10*6/uL Low 4.6-6.2 [facility] Serum creatinine measurement (mass/volume)on 11-30-2024 Creatinine [Mass/Vol] 1.11 mg/dL Normal 0.70-1.20 [facility] Comment on above: Performed By: #### L 3380.1000, L501.2300, L100.0100, L501.4700, L3400.8500, L501.5101, L500.4050, L501.5200 ####[facility] [address] [place], [address] Serum globulin measurementon 11-30-2024 Globulin (S) [Mass/Vol] 2.9 g/dL Normal 2.2-4.2 [facility] Comment on above: Performed By: #### L 3380.1000, L501.2300, L100.0100, L501.4700, L3400.8500, L501.5101, L500.4050, L501.5200 ####[facility] [address] [place], [address] Serum glucose measurement (m ass/volume)on 11-30-2024 Glucose [Mass/Vol] 62 mg/dL Low 70-99 [facility] Comment on above: Performed By: #### L 3380.1000, L501.2300, L100.0100, L501.4700, L3400.8500, L501.5101, L500.4050, L501.5200 ####[facility] [address] [place], [address] Serum or plasma alanine craig otransferase (ALT) measurementon 11-30-2024 ALT [Catalytic activity/Vol] 7 U/L Normal <=46 [facility] Comment on above: Performed By: #### L 3380.1000, L501.2300, L100.0100, L501.4700, L3400.8500, L501.5101, L500.4050, L501.5200 ####[facility] [address] [facility] [place], [address] Serum or plasma albumin megha urement (mass/volume)on 11-30-2024 Albumin [Mass/Vol] 3.7 g/dL Normal 3.4-4.8 [facility] Comment on above: Performed By: #### L 3380.1000, L501.2300, L100.0100, L501.4700, L3400.8500, L501.5101, L500.4050, L501.5200 ####[facility] [address] [place], [address] Serum or plasma albumin/glob ulin mass ratioon 11-30-2024 Albumin/Globulin [Mass ratio] 1.3 {ratio} Normal 0.9-2.4 [facility] Comment on above: Performed By: #### L 3380.1000, L501.2300, L100.0100, L501.4700, L3400.8500, L501.5101, L500.4050, L501.5200 ####[facility] [address] [place], [place], [address] Serum or plasma alkaline sal sphatase measurementon 11-30-2024 ALP [Catalytic activity/Vol] 470 U/L High 40-129 [facility] Serum or plasma calcium megha urement (mass/volume)on 11-30-2024 Calcium [Mass/Vol] 9.3 mg/dL Normal 7.6-11.0 [facility] Comment on above: Performed By: #### L 3380.1000, L501.2300, L100.0100, L501.4700, L3400.8500, L501.5101, L500.4050, L501.5200 ####[facility] [address] [place], [place], [phone]) Serum or plasma urea nitroge n measurement (mass/volume)on 11-30-2024 Urea nitrogen [Mass/Vol] 25 mg/dL High 4-19 [facility] Comment on above: Performed By: #### L 3380.1000, L501.2300, L100.0100, L501.4700, L3400.8500, L501.5101, L500.4050, L501.5200 ####[facility] [address] [place], [place], [phone] Sodium levelon 11-30-2024 Sodium [Moles/Vol] 141 mmol/L Normal 133-145 [facility] Comment on above: Performed By: #### L 3380.1000, L501.2300, L100.0100, L501.4700, L3400.8500, L501.5101, L500.4050, L501.5200 ####[facility] [address] [place], [address] Total cell counton Cells counted Molgen (Bld/Tiss) [#] 100 MANUAL DIFF [facility] Total proteinon 11-30-2024 Protein [Mass/Vol] 6.7 g/dL 5.9-8.4 [facility] White blood cell (WBC) count on 11-30-2024 WBC (Bld) [#/Vol] 2.5 10*3/uL Low 4.4-11.0 [facility] L3400.8500on 11-26-2024 CMV Quant DNA Positive Normal Negative [facility] Comment on above: Order Comment: Test( s) [id number] (FK506), Bloodwas developed and its performance characteristicsdetermined by [facility]. It has not been cleared or approvedby the Food and Drug Administration. Result Comment: CMV DNA detected.The quantitative range of this assay is 200 to 1 millionIU/mL. Performed By: #### L 500.4050, L3410.9992, L501.2300, L3890.6102, L501.5200, L3410.9994, L501.4700, L500.4100, L100.0100, L501.5101, L3380.1000, L3400.8500 ####[facility] [address] [place], [place], [phone] CMV Quant DNA TNP Normal . [facility] Comment on above: Order Comment: Test( s) [id number] (FK506), Bloodwas developed and its performance characteristicsdetermined by [facility]. It has not been cleared or approvedby the Food and Drug Administration. Result Comment: Resu lt Units: log10 IU/mLUnable to calculate result since non-numeric resultobtained for component test. Performed By: #### L 500.4050, L3410.9992, L501.2300, L3890.6102, L501.5200, L3410.9994, L501.4700, L500.4100, L100.0100, L501.5101, L3380.1000, L3400.8500 ####[facility] [address] [facility] [place], [place], [phone] L501.5101on 11-26-2024 GGTP 45 IU/L Normal 0-65 [facility] Comment on above: Order Comment: Test( s) [id number]-Dyjqphwrcg (FK506), Bloodwas developed and its performance characteristicsdetermined by [facility]. It has not been cleared or approvedby the Food and Drug Administration. Result Comment: Perf ormed at: [facility] [address] [id number] Director: Red Graham PhD, Phone: [phone] at: [facility] [address] [id number] Director: Sergio Machado MD, Phone: [phone] Performed By: #### L 500.4050, L3410.9992, L501.2300, L3890.6102, L501.5200, L3410.9994, L501.4700, L500.4100, L100.0100, L501.5101, L3380.1000, L3400.8500 ####[facility] [address] [place], [address] Tacrolimus (Prograf)on 11-26 Tacrolimus (Bld) [Mass/Vol] 4.9 ng/mL Low 5.0-20.0 [facility] Comment on above: Order Comment: Test( s) [id number] (FK506), Bloodwas developed and its performance characteristicsdetermined by [facility]. It has not been cleared or approvedby the Food and Drug Administration. Result Comment: Ubalodg et steady state trough concentration forTacrolimus varies [...] L3410.9994, L501.4700, L500.4100, L100.0100, L501.5101, L3380.1000, L3400.8500 ####[facility] [address] [place], [address] CBC W/Diff, Automatedon 11-01 PATH REV Reviewed Normal [facility] Comment on above: Result Comment: SEE REPORT IN PATIENT'S EMR AMENDED REPORT 11/25/24 1132 PATH REV previously reported as: June Performed By: #### L 501.2300, L3380.1000, L3400.8500, L501.5101, L500.4050, L501.4700, L100.0100, L501.5200 ####[facility] [address] [place], [address] L3410.9994on 11-24-2024 [facility] Misc. 2 COMMENT Normal . [facility] Comment on above: Order Comment: SERUM [id number] QUANT Result Comment: Test Ordered: [id number] HBV Real-Time PCR, QuantHBV IU/mL Note: IU/mL CB HBV DNA not detected Reference Range: .log10 HBV IU/mL CB Units of Measure: log10 IU/mL Reference Range: .Unable to calculate result since non-numeric resultobtained for component test.Test Information: Comment CB Reference Range: .The reportable range for this assay is 10 IU/mL to 1billion IU/mL.Performed at: [address] [id number] Director: Red Graham PhD, Phone: [phone] Performed By: #### L 500.4050, L3410.9992, L501.2300, L3890.6102, L501.5200, L3410.9994, L501.4700, L500.4100, L100.0100, L501.5101, L3380.1000, L3400.8500 ####[facility] [address] [place], [address] Absolute lymphocyte counton 11-23-2024 Lymphocytes Auto (Unsp spec) [#/Vol] 1.20 10*3/uL 0.83-4.51 [facility] Absolute neutrophil counton 11-23-2024 Neutrophils (Bld) [#/Vol] 0.9 10*3/uL Low 2.0-7.7 [facility] Anion gap in Serum or Plasma on 11-23-2024 Anion gap [Moles/Vol] 11 mmol/L 5-15 [facility] Comment on above: Previous reported re sult: 11 Edited by: CARLITA on 11/23/24:1145 AMENDED REPORT 11/23/24 1145 GAP previously reported as: 11 BUN/creatinine ratioon 11-23 Urea nitrogen/Creatinine [Mass ratio] 18.5 mg/mg 10- [facility] Comment on above: Previous reported re sult: 19.3 RATIOEdited by: MojostreetMinda on 11/23/24:1145 AMENDED REPORT 11/23/24 1145 BUN/CRE previously reported as: 19.3 RATIO Bilirubin directon Bilirubin.direct [Mass/Vol] 0.10 mg/dL 0.00-0.30 [facility] Bilirubin, Directon 11-24-19 Bilirubin.direct [Mass/Vol] 0.10 mg/dL Normal 0.00-0.30 [facility] Comment on above: Performed By: #### L 500.4050, L3410.9992, L501.2300, L3890.6102, L501.5200, L3410.9994, L501.4700, L500.4100, L100.0100, L501.5101, L3380.1000, L3400.8500 ####[facility] [address] [place], [address] Bilirubin, totalon Bilirubin [Mass/Vol] 0.20 mg/dL 0.00-1.30 [facility] Comment on above: Previous reported re sult: 0.21 mg/dLEdited by: CARLITA on 11/23/24:1145 AMENDED REPORT 11/23/24 1145 T BILI previously reported as: 0.21 mg/dL Blood band neutrophil count as percentage of total leukocyteson 11-23-2024 Band form neutrophils/100 WBC (Bld) 3 % 0-5 [facility] Blood basophils/100 leukocyt eson 11-23-2024 Basophils/100 WBC (Bld) 2 % High 0-1 [facility] Blood eosinophils/100 leukoc yteson 11-23-2024 Eosinophils/100 WBC (Bld) 1 % 0-5 [facility] Blood lymphocytes/100 leukoc yteson 11-23-2024 Lymphocytes/100 WBC (Bld) 49 % High 19-41 [facility] Blood metamyelocytes/100 susy kocyteson 11-23-2024 Metamyelocytes/100 WBC (Bld) 3 % High 0-1 [facility] Blood monocytes/100 leukocyt eson 11-23-2024 Monocytes/100 WBC (Bld) 7 % 0-10 [facility] Blood segmented neutrophils/ 100 leukocyteson 11-23-2024 Segmented neutrophils/100 WBC (Bld) 35 % Low 47-70 [facility] CBC W/Diff, Automatedon 11-01 REACTIVE LYMPH RARE Normal [facility] Comment on above: Performed By: #### L 500.4050, L3410.9992, L501.2300, L3890.6102, L501.5200, L3410.9994, L501.4700, L500.4100, L100.0100, L501.5101, L3380.1000, L3400.8500 ####[facility] [address] [place], [place], [phone] Calculated very low density lipoprotein (VLDL) cholesterol measurementon 11-23-2024 Calculated very low density lipoprotein (VLDL) cholesterol measurement 18 mg/dL 5-40 [facility] Carbon dioxide, total [Moles /volume] in Central venous bloodon 11-23-2024 CO2 [Moles/Vol] 21.1 mmol/L 21.0-32.0 [facility] Comment on above: Previous reported re sult: 22.5 mmol/LEdited by: AUTOINS on 11/23/24:1145 AMENDED REPORT 11/23/24 1145 CO2 previously reported as: 22.5 mmol/L Chloride assayon 11-23-2024 Chloride [Moles/Vol] 106 mmol/L 98-108 [facility] Comment on above: Previous reported re sult: 105 mmol/LEdited by: AUTOINS on 11/23/24:1145 AMENDED REPORT 11/23/24 1145 CL previously reported as: 105 mmol/L Comprehensive Metabolic Prof ilon 11-23-2024 Albumin [Mass/Vol] 3.6 g/dL Normal 3.4-4.8 [facility] Comment on above: Result Comment: AMENDED REPORT 11/23/24 1145 ALB previously reported as: 3.7 g/dL Performed By: #### L 500.4050, L3410.9992, L501.2300, L3890.6102, L501.5200, L3410.9994, L501.4700, L500.4100, L100.0100, L501.5101, L3380.1000, L3400.8500 ####[facility] [address] [place], [place], [phone] Albumin/Globulin [Mass ratio] 1.4 {ratio} Normal 0.9-2.4 [facility] Comment on above: Result Comment: AMENDED REPORT 11/23/241144 A/G previously reported as: 1.7 RATIO Performed By: #### L 500.4050, L3410.9992, L501.2300, L3890.6102, L501.5200, L3410.9994, L501.4700, L500.4100, L100.0100, L501.5101, L3380.1000, L3400.8500 ####[facility] [address] [place], [place], [phone] ALK PHOS 400 U/L High 40-129 [facility] Comment on above: Result Comment: AMENDED REPORT 11/23/241144 ALK P previously reported as: 409 H U/L Performed By: #### L 500.4050, L3410.9992, L501.2300, L3890.6102, L501.5200, L3410.9994, L501.4700, L500.4100, L100.0100, L501.5101, L3380.1000, L3400.8500 ####[facility] [address] [place], [address] ALT [Catalytic activity/Vol] 11 U/L Normal <=46 [facility] Comment on above: Result Comment: AMENDED REPORT 11/23/241144 ALT previously reported as: 12 U/L Performed By: #### L 500.4050, L3410.9992, L501.2300, L3890.6102, L501.5200, L3410.9994, L501.4700, L500.4100, L100.0100, L501.5101, L3380.1000, L3400.8500 ####[facility] [address] [place], [place], [phone] AST [Catalytic activity/Vol] 17 U/L Normal <=37 [facility] Comment on above: Performed By: #### L 500.4050, L3410.9992, L501.2300, L3890.6102, L501.5200, L3410.9994, L501.4700, L500.4100, L100.0100, L501.5101, L3380.1000, L3400.8500 ####[facility] [address] [place], [place], [phone](687) Bilirubin [Mass/Vol] 0.20 mg/dL Normal 0.00-1.30 [facility] Comment on above: Result Comment: AMENDED REPORT 11/23/241144 T BILI previously reported as: 0.21 mg/dL Performed By: #### L 500.4050, L3410.9992, L501.2300, L3890.6102, L501.5200, L3410.9994, L501.4700, L500.4100, L100.0100, L501.5101, L3380.1000, L3400.8500 ####[facility] [address] [place], [place], [phone](803) BUN/CRE 18.5 RATIO Normal 10-20 [facility] Comment on above: Result Comment: AMENDED REPORT 11/23/241144 BUN/CRE previously reported as: 19.3 RATIO Performed By: #### L 500.4050, L3410.9992, L501.2300, L3890.6102, L501.5200, L3410.9994, L501.4700, L500.4100, L100.0100, L501.5101, L3380.1000, L3400.8500 ####[facility] [address] [place], [place], [phone](450) Calcium [Mass/Vol] 8.7 mg/dL Normal 7.6-11.0 [facility] Comment on above: Result Comment: AMENDED REPORT 11/23/241144 CA previously reported as: 8.6 mg/dL Performed By: #### L 500.4050, L3410.9992, L501.2300, L3890.6102, L501.5200, L3410.9994, L501.4700, L500.4100, L100.0100, L501.5101, L3380.1000, L3400.8500 ####[facility] [address] [place], [place], [phone](551) Chloride [Moles/Vol] 106 mmol/L Normal 98-108 [facility] Comment on above: Result Comment: AMENDED REPORT 11/23/24 8384 CL previously reported as: 105 mmol/L Performed By: #### L 500.4050, L3410.9992, L501.2300, L3890.6102, L501.5200, L3410.9994, L501.4700, L500.4100, L100.0100, L501.5101, L3380.1000, L3400.8500 ####[facility] [address] [place], [place], [phone](620) CO2 [Moles/Vol] 21.1 mmol/L Normal 21.0-32.0 [facility] Comment on above: Result Comment: AMENDED REPORT 11/23/242 CO2 previously reported as: 22.5 mmol/L Performed By: #### L 500.4050, L3410.9992, L501.2300, L3890.6102, L501.5200, L3410.9994, L501.4700, L500.4100, L100.0100, L501.5101, L3380.1000, L3400.8500 ####[facility] [address] [place], [place], [phone](509) Creatinine [Mass/Vol] 1.12 mg/dL Normal 0.70-1.20 [facility] Comment on above: Result Comment: AMENDED REPORT 11/23/24 5919 CREAT,SERUM previously reported as: 1.06 mg/dL Performed By: #### L 500.4050, L3410.9992, L501.2300, L3890.6102, L501.5200, L3410.9994, L501.4700, L500.4100, L100.0100, L501.5101, L3380.1000, L3400.8500 ####[facility] [address] [place], [place], [phone] GAP 11 Normal 5-15 [facility] Comment on above: Result Comment: AMENDED REPORT 11/23/241144 GAP previously reported as: 11 Performed By: #### L 500.4050, L3410.9992, L501.2300, L3890.6102, L501.5200, L3410.9994, L501.4700, L500.4100, L100.0100, L501.5101, L3380.1000, L3400.8500 ####[facility] [address] [place], [place], [phone] Globulin (S) [Mass/Vol] 2.6 g/dL Normal 2.2-4.2 [facility] Comment on above: Result Comment: AMENDED REPORT 11/23/241144 GLOB previously reported as: 2.1 L g/dL Performed By: #### L 500.4050, L3410.9992, L501.2300, L3890.6102, L501.5200, L3410.9994, L501.4700, L500.4100, L100.0100, L501.5101, L3380.1000, L3400.8500 ####[facility] [address] [place], [place], [phone] Glucose [Mass/Vol] 86 mg/dL Normal 70-99 [facility] Comment on above: Result Comment: AMENDED REPORT 11/23/241144 GLU previously reported as: 89 mg/dL Performed By: #### L 500.4050, L3410.9992, L501.2300, L3890.6102, L501.5200, L3410.9994, L501.4700, L500.4100, L100.0100, L501.5101, L3380.1000, L3400.8500 ####[facility] [address] [place], [place], [phone](537) Potassium [Moles/Vol] 4.5 mmol/L Normal 3.3-5.1 [facility] Comment on above: Result Comment: AMENDED REPORT 11/23/241144 K previously reported as: 4.8 mmol/L Performed By: #### L 500.4050, L3410.9992, L501.2300, L3890.6102, L501.5200, L3410.9994, L501.4700, L500.4100, L100.0100, L501.5101, L3380.1000, L3400.8500 ####[facility] [address] [place], [place], [phone](085) Sodium [Moles/Vol] 139 mmol/L Normal 133-145 [facility] Comment on above: Result Comment: AMENDED REPORT 11/23/241144 NA previously reported as: 138 mmol/L Performed By: #### L 500.4050, L3410.9992, L501.2300, L3890.6102, L501.5200, L3410.9994, L501.4700, L500.4100, L100.0100, L501.5101, L3380.1000, L3400.8500 ####[facility] [address] [place], [place], [phone](558) T PROT 6.2 g/dL Normal 5.9-8.4 [facility] Comment on above: Result Comment: AMENDED REPORT 11/23/241144 T PROT previously reported as: 5.8 L g/dL Performed By: #### L 500.4050, L3410.9992, L501.2300, L3890.6102, L501.5200, L3410.9994, L501.4700, L500.4100, L100.0100, L501.5101, L3380.1000, L3400.8500 ####[facility] [address] [facility] [place], [address] Urea nitrogen [Mass/Vol] 21 mg/dL High 4-19 [facility] Comment on above: Performed By: #### L 500.4050, L3410.9992, L501.2300, L3890.6102, L501.5200, L3410.9994, L501.4700, L500.4100, L100.0100, L501.5101, L3380.1000, L3400.8500 ####[facility] [address] [facility]. [place], [place], [phone] Cytomegalovirus (CMV) DNA me asurement by PCR (log units/volume)on 11-23-2024 CMV DNA JACKY+probe (P) [Log units/Vol] TNP [facility] Comment on above: Test not performedRe sult Units: log10 IU/mLUnable to calculate result since non-numeric resultobtained for component test. Erythrocyte distribution wid th ratioon 11-23-2024 Erythrocyte distribution width (RBC) [Ratio] 17.2 % High 11.6-14.6 [facility] Erythrocyte distribution wid th standard deviationon 11-23-2024 Erythrocyte distribution width (RBC) [Ratio] 62.4 fl High 35.1-43.9 [facility] Gamma glutamyl transferase ( GGT) measurementon 11-23-2024 Amylase [Catalytic activity/Vol] 45 U/L 0-65 [facility] Comment on above: Performed at: [facility] [address] [id number] Director: Red Graham PhD, Phone: [phone] at: [facility] [address] [id number] Director: Sergio Machado MD, Phone: [phone] Glomerular filtration rate ( GFR) estimation/1.73 sq m using serum, plasma, or whole bon 11-23-2024 GFR/1.73 sq M.predicted among non-blacks MDRD (S/P/Bld) [Vol rate/Area] 80 mL/min/{1.73_m2} >60 [facility] Comment on above: mL/min/1.73m2 CKD-EP I Creatinine Equation (2020) Hematocrit Auto (Bld) [Volum e fraction]on 11-23-2024 Hematocrit (Bld) [Volume fraction] 23.9 % Low 40-54 [facility] Hemoglobin measurementon Hemoglobin (Bld) [Mass/Vol] 7.5 g/dL Low 13.0-16.5 [facility] L3890.6102on 11-23-2024 HEP B Surf Ag Non-Reactive Normal Nonreactive [facility] Comment on above: Result Comment: Reac tive: Presumptive evidence of HBV. Repeatedly reactivesamples must be confirmed using a neutralization test([employer] HBsAg Confirmatory Test)Non-Reactive: HBsAg not detected; does not exclude thepossibility of exposure to HBV Performed By: #### L 500.4050, L3410.9992, L501.2300, L3890.6102, L501.5200, L3410.9994, L501.4700, L500.4100, L100.0100, L501.5101, L3380.1000, L3400.8500 ####[facility] [address] [place], [place], [phone] LDL calc ser/plason 11-24-19 25 Cholesterol in LDL [Mass/Vol] 84 mg/dL [facility] Comment on above: Ynizsabwbt=022-096 m g/dL & Higher Othv=049 mg/dL or greaterFriedwald Equation for LDL-C Laboratory - Chemistry and C hemistry - challengeon 11-23-2024 AST [Catalytic activity/Vol] 17 U/L <38 [facility] Laboratory - Microbiology an d Antimicrobial susceptibilityon 11-23-2024 HBV surface Ag Ql (S) Non-Reactive Nonreactive [facility] Comment on above: Reactive: Presumptiv e evidence of HBV. Repeatedly reactive samples must be confirmed using a neutralization test ([employer] HBsAg Confirmatory Test)Non-Reactive: HBsAg not detected; does not exclude the possibility of exposure to HBV Lipid Profileon 11-23-2024 CHOL:HDL 2.96 Normal [facility] Comment on above: Performed By: #### L 500.4050, L3410.9992, L501.2300, L3890.6102, L501.5200, L3410.9994, L501.4700, L500.4100, L100.0100, L501.5101, L3380.1000, L3400.8500 ####[facility] [address] [place], [place], [phone](163) Cholesterol [Mass/Vol] 154 mg/dL Normal <=200 [facility] Comment on above: Result Comment: Chol esterol level, Desirable <200 mg/dLBorderline high cholesterol 200-239 mg/dLHigh cholesterol >=240 mg/dLRecommendations of the NCEP Adult Treatment Panel for thefollowing risk-cutoff thresholds for the [place] [facility]. Performed By: #### L 500.4050, L3410.9992, L501.2300, L3890.6102, L501.5200, L3410.9994, L501.4700, L500.4100, L100.0100, L501.5101, L3380.1000, L3400.8500 ####[facility] [address] [place], [place], [phone](320) Cholesterol in HDL [Mass/Vol] 52 mg/dL Normal [facility] Comment on above: Result Comment: Priya onal Cholesterol Education Program (NCEP) guidelines:<40 mg/dL: Low HDL-cholesterol (major risk factor for CHD)>= 60 mg/dL: High HDL-cholesterol (negative risk factor forCHD)HDL-cholesterol is affected by a number of factors, e.g.smoking, exercise, hormones, sex and age. Performed By: #### L 500.4050, L3410.9992, L501.2300, L3890.6102, L501.5200, L3410.9994, L501.4700, L500.4100, L100.0100, L501.5101, L3380.1000, L3400.8500 ####[facility] [address] [place], [place], [phone](442) Cholesterol in LDL [Mass/Vol] 84 mg/dL Normal [facility] Comment on above: Result Comment: Bord hisdbj=157-091 mg/dL Higher Vorg=591 mg/dL or greaterFriedwald Equation for LDL-C Performed By: #### L 500.4050, L3410.9992, L501.2300, L3890.6102, L501.5200, L3410.9994, L501.4700, L500.4100, L100.0100, L501.5101, L3380.1000, L3400.8500 ####[facility] [address] [place], [place], [phone](016) Cholesterol in VLDL [Mass/Vol] 18 mg/dL Normal 5-40 [facility] Comment on above: Performed By: #### L 500.4050, L3410.9992, L501.2300, L3890.6102, L501.5200, L3410.9994, L501.4700, L500.4100, L100.0100, L501.5101, L3380.1000, L3400.8500 ####[facility] [address] [place], [place], [phone](725) Triglyceride [Mass/Vol] 92 mg/dL Normal [facility] Comment on above: Result Comment: The drugs N-Acetylcysteine and Metamizole may falselydepress this assay.Normal range: <150 mg/dLBorderline High: 150-199 mg/dLHigh: 200-499 mg/dLVery High: >500 mg/dL Performed By: #### L 500.4050, L3410.9992, L501.2300, L3890.6102, L501.5200, L3410.9994, L501.4700, L500.4100, L100.0100, L501.5101, L3380.1000, L3400.8500 ####[facility] [address] [place], [place], [phone] MCV (mean corpuscular volume ) determinationon 11-23-2024 MCV (RBC) [Entitic vol] 98.8 fL High 80-94 [facility] Magnesiumon 11-23-2024 Magnesium [Mass/Vol] 2.1 mg/dL Normal 1.5-2.2 [facility] Comment on above: Performed By: #### L 500.4050, L3410.9992, L501.2300, L3890.6102, L501.5200, L3410.9994, L501.4700, L500.4100, L100.0100, L501.5101, L3380.1000, L3400.8500 ####[facility] [address] [place], [place], [phone] Magnesium measurement (mass/ volume)on 11-23-2024 Magnesium (Unsp spec) [Mass/Vol] 2.1 mg/dL 1.5-2.2 [facility] Mean corpuscular hemoglobin (MCH) determinationon 11-23-2024 MCH (RBC) [Entitic mass] 31.0 pg 27.0-32.0 [facility] Mean corpuscular hemoglobin concentration (MCHC) determinationon 11-23-2024 MCHC (RBC) [Mass/Vol] 31.4 g/dL Low 32-36 [facility] Mean platelet volume determi nationon 11-23-2024 Platelet mean volume (Bld) [Entitic vol] 10.9 fL 6.2-12.0 [facility] No Panel Informationon 11-23 17 U/L <38 [facility] Phosphoruson 11-23-2024 Phosphate [Mass/Vol] 2.8 mg/dL Normal 2.7-4.5 [facility] [facility] Comment on above: Result Comment: AMENDED REPORT 11/23/24 1145 PHOS previously reported as: 3.0 mg/dL Performed By: #### L 500.4050, L3410.9992, L501.2300, L3890.6102, L501.5200, L3410.9994, L501.4700, L500.4100, L100.0100, L501.5101, L3380.1000, L3400.8500 ####[facility] [address] [place], [address] Platelet counton 11-23-2024 Platelets (Bld) [#/Vol] 500 10*3/uL High 150-450 [facility] Potassium measurement (mass/ volume)on 11-23-2024 Potassium (Unsp spec) [Mass/Vol] 4.5 mmol/L 3.3-5.1 [facility] Comment on above: Previous reported re sult: 4.8 mmol/LEdited by: AUTOINS on 11/23/24:1145 AMENDED REPORT 11/23/24 1145 K previously reported as: 4.8 mmol/L RBC Auto (Bld) [#/Vol]on RBC (Bld) [#/Vol] 2.42 10*6/uL Low 4.6-6.2 [facility] Screening total cholesterol/ high density lipoprotein (HDL) cholesterol ratioon 11-23-2024 Cholesterol.total/Cho lesterol in HDL [Mass ratio] 2.96 {ratio} [facility] Serum creatinine measurement (mass/volume)on 11-23-2024 Creatinine [Mass/Vol] 1.12 mg/dL 0.70-1.20 [facility] Comment on above: Previous reported re sult: 1.06 mg/dLEdited by: AUTOINS on 11/23/24:1145 AMENDED REPORT 11/23/24 1145 CREAT,SERUM previously reported as: 1.06 mg/dL Serum globulin measurementon 11-23-2024 Globulin (S) [Mass/Vol] 2.6 g/dL 2.2-4.2 [facility] Comment on above: Previous reported re sult: 2.1 g/dLEdited by: AUTOINS on 11/23/24:1145 AMENDED REPORT 11/23/24 1145 GLOB previously reported as: 2.1 L g/dL Serum glucose measurement (m ass/volume)on 11-23-2024 Glucose [Mass/Vol] 86 mg/dL 70-99 [facility] Comment on above: Previous reported re sult: 89 mg/dLEdited by: AUTOINS on 11/23/24:1145 AMENDED REPORT 11/23/24 1145 GLU previously reported as: 89 mg/dL Serum or plasma alanine craig otransferase (ALT) measurementon 11-23-2024 ALT [Catalytic activity/Vol] 11 U/L <47 [facility] Comment on above: Previous reported re sult: 12 U/LEdited by: AUTOINS on 11/23/24:1145 AMENDED REPORT 11/23/24 114 ALT previously reported as: 12 U/L Serum or plasma albumin megha urement (mass/volume)on 11-23-2024 Albumin [Mass/Vol] 3.6 g/dL 3.4-4.8 [facility] Comment on above: Previous reported re sult: 3.7 g/dLEdited by: AUTOINS on 11/23/24:1145 AMENDED REPORT 11/23/24 1145 ALB previously reported as: 3.7 g/dL Serum or plasma albumin/glob ulin mass ratioon 11-23-2024 Albumin/Globulin [Mass ratio] 1.4 {ratio} 0.9-2.4 [facility] Comment on above: Previous reported re sult: 1.7 RATIOEdited by: AUTOINS on 11/23/24:1145 AMENDED REPORT 11/23/24 1145 A/G previously reported as: 1.7 RATIO Serum or plasma alkaline sal sphatase measurementon 11-23-2024 ALP [Catalytic activity/Vol] 400 U/L High 40-129 [facility] Comment on above: Previous reported re sult: 409 U/LEdited by: AUTOINS on 11/23/24:1145 AMENDED REPORT 11/23/24 1145 ALK P previously reported as: 409 H U/L Serum or plasma calcium megha urement (mass/volume)on 11-23-2024 Calcium [Mass/Vol] 8.7 mg/dL 7.6-11.0 [facility] Comment on above: Previous reported re sult: 8.6 mg/dLEdited by: CALRITA on 11/23/24:1145 AMENDED REPORT 11/23/24 1145 CA previously reported as: 8.6 mg/dL Serum or plasma cholesterol in HDL measurement (mass/volume)on 11-23-2024 Cholesterol in HDL [Mass/Vol] 52 mg/dL >40 [facility] Comment on above: National Cholesterol Education Program (NCEP) guidelines:<40 mg/dL: Low HDL-cholesterol (major risk factor for CHD)>= 60 mg/dL: High HDL-cholesterol (negative risk factor for CHD)HDL-cholesterol is affected by a number of factors, e.g. smoking, exercise, hormones, sex and age. Serum or plasma cholesterol measurement (mass/volume)on 11-23-2024 Cholesterol [Mass/Vol] 154 mg/dL <201 [facility] Comment on above: Cholesterol level, D esirable <200 mg/dLBorderline high cholesterol 200-239 mg/dLHigh cholesterol >=240 mg/dLRecommendations of the NCEP Adult Treatment Panel for the following risk-cutoff thresholds for the [place] population. Serum or plasma urea nitroge n measurement (mass/volume)on 11-23-2024 Urea nitrogen [Mass/Vol] 21 mg/dL High 4-19 [facility] Sodium levelon 11-23-2024 Sodium [Moles/Vol] 139 mmol/L 133-145 [facility] Comment on above: Previous reported re sult: 138 mmol/LEdited by: CARLITA on 11/23/24:1145 AMENDED REPORT 11/23/24 1145 NA previously reported as: 138 mmol/L Total cell counton Cells counted [employer] (Bld/Tiss) [#] 100 MANUAL DIFF [facility] Total proteinon 11-23-2024 Protein [Mass/Vol] 6.2 g/dL 5.9-8.4 [facility] Comment on above: Previous reported re sult: 5.8 g/dLEdited by: CARLITA on 11/23/24:1145 AMENDED REPORT 11/23/24 1145 T PROT previously reported as: 5.8 L g/dL Triglycerides measurementon 11-23-2024 Triglyceride [Mass/Vol] 92 mg/dL <199 [facility] Comment on above: The drugs N-Acetylcy steine and Metamizole may falsely depress this assay. Normal range: <150 mg/dLBorderline High: 150-199 mg/dLHigh: 200-499 mg/dLVery High: >500 mg/dL White blood cell (WBC) count on 11-23-2024 WBC (Bld) [#/Vol] 2.4 10*3/uL Low 4.4-11.0 [facility] L3400.8500on 11-20-2024 CMV Quant DNA Positive Normal Negative [facility] Comment on above: Order Comment: Test( s) [id number] (FK506), Bloodwas developed and its performance characteristicsdetermined by [facility]. It has not been cleared or approvedby the Food and Drug Administration. Result Comment: CMV DNA detected.The quantitative range of this assay is 200 to 1 millionIU/mL. Performed By: #### L 501.5101, L3400.8500, L501.2300, L500.4050, L501.4700, L501.5200, L3380.1000, L100.0100 ####[facility] [address] [place], [place], [id number] CMV Quant DNA TNP Normal . [facility] Comment on above: Order Comment: Test( s) [id number] (FK506), Bloodwas developed and its performance characteristicsdetermined by [facility]. It has not been cleared or approvedby the Food and Drug Administration. Result Comment: Resu lt Units: log10 IU/mLUnable to calculate result since non-numeric resultobtained for component test. Performed By: #### L 501.5101, L3400.8500, L501.2300, L500.4050, L501.4700, L501.5200, L3380.1000, L100.0100 ####[facility] [address] [place], [place], [address] L501.5101on 11-20-2024 GGTP 93 IU/L Abnormal 0-65 [facility] Comment on above: Order Comment: Test( s) [id number]-Fekdgiwuib (FK506), Bloodwas developed and its performance characteristicsdetermined by [facility]. It has not been cleared or approvedby the Food and Drug Administration. Result Comment: Perf ormed at: [facility] [address] [id number] Director: Red Graham PhD, Phone: [phone] at: [address] [id number] Director: Sergio Machado MD, Phone: [phone] Performed By: #### L 5015101, L3400.8500, L501.2300, L500.4050, L501.4700, L501.5200, L3380.1000, L100.0100 ####[facility] [address] [place], [place], [address] Tacrolimus (Prograf)on 11-20 Tacrolimus (Bld) [Mass/Vol] 4.9 ng/mL Low 5.0-20.0 [facility] Comment on above: Order Comment: Test( s) [id number]-Mgsfzhdlqp (FK506), Bloodwas developed and its performance characteristicsdetermined by [facility]. It has not been cleared or approvedby [...] L3400.8500, L501.2300, L500.4050, L501.4700, L501.5200, L3380.1000, L100.0100 ####[facility] [address] [place], [place], [phone] Bilirubin, Directon 11-17-19 Bilirubin.direct [Mass/Vol] 0.19 mg/dL Normal 0.00-0.30 [facility] Comment on above: Performed By: #### L 501.5101, L3400.8500, L501.2300, L500.4050, L501.4700, L501.5200, L3380.1000, L100.0100 ####[facility] [address] [place], [place], [phone] CBC W/Diff, Automatedon 10-31 Absolute Lymph 0.29 X10 3/uL Low 0.83-4.51 [facility] Comment on above: Performed By: #### L 501.5101, L3400.8500, L501.2300, L500.4050, L501.4700, L501.5200, L3380.1000, L100.0100 ####[facility] [address] [place], [place], [id number] Absolute Neut 1.6 X10 3/uL Low 2.0-7.7 [facility] Comment on above: Performed By: #### L 501.5101, L3400.8500, L501.2300, L500.4050, L501.4700, L501.5200, L3380.1000, L100.0100 ####[facility] [address] [place], [address] Comprehensive Metabolic Prof ilon 11-16-2024 Albumin [Mass/Vol] 3.6 g/dL Normal 3.4-4.8 [facility] Comment on above: Performed By: #### L 501.5101, L3400.8500, L501.2300, L500.4050, L501.4700, L501.5200, L3380.1000, L100.0100 ####[facility] [address] [place], [address] Albumin/Globulin [Mass ratio] 1.4 {ratio} Normal 0.9-2.4 [facility] Comment on above: Performed By: #### L 501.5101, L3400.8500, L501.2300, L500.4050, L501.4700, L501.5200, L3380.1000, L100.0100 ####[facility] [address] [place], [address] ALK PHOS 441 U/L High 40-129 [facility] Comment on above: Performed By: #### L 501.5101, L3400.8500, L501.2300, L500.4050, L501.4700, L501.5200, L3380.1000, L100.0100 ####[facility] [address] [place], [address] ALT [Catalytic activity/Vol] 36 U/L Normal <=46 [facility] Comment on above: Performed By: #### L 501.5101, L3400.8500, L501.2300, L500.4050, L501.4700, L501.5200, L3380.1000, L100.0100 ####[facility] [address] [place], [address] AST [Catalytic activity/Vol] 46 U/L High <=37 [facility] Comment on above: Performed By: #### L 501.5101, L3400.8500, L501.2300, L500.4050, L501.4700, L501.5200, L3380.1000, L100.0100 ####[facility] [address] [place], [address] Bilirubin [Mass/Vol] 0.38 mg/dL Normal 0.00-1.30 [facility] Comment on above: Performed By: #### L 501.5101, L3400.8500, L501.2300, L500.4050, L501.4700, L501.5200, L3380.1000, L100.0100 ####[facility] [address] [place], [address] BUN/CRE 17.6 RATIO Normal 10-20 [facility] Comment on above: Performed By: #### L 501.5101, L3400.8500, L501.2300, L500.4050, L501.4700, L501.5200, L3380.1000, L100.0100 ####[facility] [address] [place], [address] Calcium [Mass/Vol] 8.9 mg/dL Normal 7.6-11.0 [facility] Comment on above: Performed By: #### L 501.5101, L3400.8500, L501.2300, L500.4050, L501.4700, L501.5200, L3380.1000, L100.0100 ####[facility] [address] [place], [address] Chloride [Moles/Vol] 103 mmol/L Normal 98-108 [facility] Comment on above: Performed By: #### L 501.5101, L3400.8500, L501.2300, L500.4050, L501.4700, L501.5200, L3380.1000, L100.0100 ####[facility] [address] [place], [address] CO2 [Moles/Vol] 22.2 mmol/L Normal 21.0-32.0 [facility] Comment on above: Performed By: #### L 501.5101, L3400.8500, L501.2300, L500.4050, L501.4700, L501.5200, L3380.1000, L100.0100 ####[facility] [address] [place], [address] Creatinine [Mass/Vol] 1.21 mg/dL High 0.70-1.20 [facility] Comment on above: Performed By: #### L 501.5101, L3400.8500, L501.2300, L500.4050, L501.4700, L501.5200, L3380.1000, L100.0100 ####[facility] [address] [place], [address] GAP 11 Normal 5-15 [facility] Comment on above: Performed By: #### L 501.5101, L3400.8500, L501.2300, L500.4050, L501.4700, L501.5200, L3380.1000, L100.0100 ####[facility] [address] [place], [address](580) GFR/1.73 sq M.predicted among non-blacks MDRD (S/P/Bld) [Vol rate/Area] 69 mL/min/{1.73_m2} Normal >60 [facility] Comment on above: Result Comment: mL/m in/1.73m2 CKD-EPI Creatinine Equation (2020) Performed By: #### L 501.5101, L3400.8500, L501.2300, L500.4050, L501.4700, L501.5200, L3380.1000, L100.0100 ####[facility] [address] [place], [address] Globulin (S) [Mass/Vol] 2.6 g/dL Normal 2.2-4.2 [facility] Comment on above: Performed By: #### L 501.5101, L3400.8500, L501.2300, L500.4050, L501.4700, L501.5200, L3380.1000, L100.0100 ####[facility] [address] [place], [address] Glucose [Mass/Vol] 157 mg/dL High 70-99 [facility] Comment on above: Performed By: #### L 501.5101, L3400.8500, L501.2300, L500.4050, L501.4700, L501.5200, L3380.1000, L100.0100 ####[facility] [address] [place], [address] Potassium [Moles/Vol] 4.4 mmol/L Normal 3.3-5.1 [facility] Comment on above: Performed By: #### L 501.5101, L3400.8500, L501.2300, L500.4050, L501.4700, L501.5200, L3380.1000, L100.0100 ####[facility] [address] [place], [address] Sodium [Moles/Vol] 136 mmol/L Normal 133-145 [facility] Comment on above: Performed By: #### L 501.5101, L3400.8500, L501.2300, L500.4050, L501.4700, L501.5200, L3380.1000, L100.0100 ####[facility] [address] [place], [address] T PROT 6.1 g/dL Normal 5.9-8.4 [facility] Comment on above: Performed By: #### L 501.5101, L3400.8500, L501.2300, L500.4050, L501.4700, L501.5200, L3380.1000, L100.0100 ####[facility] [address] [place], [address] Urea nitrogen [Mass/Vol] 21 mg/dL High 4-19 [facility] Comment on above: Performed By: #### L 501.5101, L3400.8500, L501.2300, L500.4050, L501.4700, L501.5200, L3380.1000, L100.0100 ####[facility] [address] [place], [address] Magnesiumon 11-16-2024 Magnesium [Mass/Vol] 1.8 mg/dL Normal 1.5-2.2 [facility] Comment on above: Performed By: #### L 501.5101, L3400.8500, L501.2300, L500.4050, L501.4700, L501.5200, L3380.1000, L100.0100 ####[facility] [address] [place], [address] Phosphoruson 11-16-2024 Phosphate [Mass/Vol] 2.7 mg/dL Normal 2.7-4.5 [facility] Comment on above: Performed By: #### L 501.5101, L3400.8500, L501.2300, L500.4050, L501.4700, L501.5200, L3380.1000, L100.0100 ####[facility] [address] [place], [address] L3400.8500on 11-13-2024 CMV Quant DNA Positive Normal Negative [facility] Comment on above: Order Comment: Test( s) [id number] (FK506), Bloodwas developed and its performance characteristicsdetermined by [facility]. It has not been cleared or approvedby the Food and Drug Administration. Result Comment: CMV DNA detected.The quantitative range of this assay is 200 to 1 millionIU/mL. Performed By: #### L 501.2300, L3380.1000, L3400.8500, L501.5101, L500.4050, L501.4700, L100.0100, L501.5200 ####[facility] [address] [place], [address] CMV Quant DNA TNP Normal . [facility] Comment on above: Order Comment: Test( s) [id number] (FK506), Bloodwas developed and its performance characteristicsdetermined by [facility]. It has not been cleared or approvedby the Food and Drug Administration. Result Comment: Resu lt Units: log10 IU/mLUnable to calculate result since non-numeric resultobtained for component test. Performed By: #### L 501.2300, L3380.1000, L3400.8500, L501.5101, L500.4050, L501.4700, L100.0100, L501.5200 ####[facility] [address] [place], [address] L501.5101on 11-13-2024 GGTP 67 IU/L Abnormal 0-65 [facility] Comment on above: Order Comment: Test( s) [id number]-Ulfljwsawz (FK506), Bloodwas developed and its performance characteristicsdetermined by [facility]. It has not been cleared or approvedby the Food and Drug Administration. Result Comment: Perf ormed at: - [address] [id number] Director: Red Graham PhD, Phone: [phone] at: [facility] [id number] Director: Sergio Machado MD, Phone: [phone] Performed By: #### L 501.2300, L3380.1000, L3400.8500, L501.5101, L500.4050, L501.4700, L100.0100, L501.5200 ####[facility] [address] [facility] [place], [address] Tacrolimus (Prograf)on 11-13 Tacrolimus (Bld) [Mass/Vol] 5.6 ng/mL Normal 5.0-20.0 [facility] Comment on above: Order Comment: Test( s) [id number]-Gmzwgqifha (FK506), Bloodwas developed and its performance characteristicsdetermined by [facility]. It has not been cleared or approvedby [...] L3380.1000, L3400.8500, L501.5101, L500.4050, L501.4700, L100.0100, L501.5200 ####[facility] [address] [place], [address] Bilirubin, Directon 11-10-19 Bilirubin.direct [Mass/Vol] 0.11 mg/dL Normal 0.00-0.30 [facility] Comment on above: Performed By: #### L 501.2300, L3380.1000, L3400.8500, L501.5101, L500.4050, L501.4700, L100.0100, L501.5200 ####[facility] [address] [place], [address] Comprehensive Metabolic Prof ilon 11-09-2024 Albumin [Mass/Vol] 3.6 g/dL Normal 3.4-4.8 [facility] Comment on above: Performed By: #### L 501.2300, L3380.1000, L3400.8500, L501.5101, L500.4050, L501.4700, L100.0100, L501.5200 ####[facility] [address] [place], [place], [id number] Albumin/Globulin [Mass ratio] 1.4 {ratio} Normal 0.9-2.4 [facility] Comment on above: Performed By: #### L 501.2300, L3380.1000, L3400.8500, L501.5101, L500.4050, L501.4700, L100.0100, L501.5200 ####[facility] [address] [place], [address] ALK PHOS 297 U/L High 40-129 [facility] Comment on above: Performed By: #### L 501.2300, L3380.1000, L3400.8500, L501.5101, L500.4050, L501.4700, L100.0100, L501.5200 ####[facility] [address] [place], [address] ALT [Catalytic activity/Vol] 24 U/L Normal <=46 [facility] Comment on above: Performed By: #### L 501.2300, L3380.1000, L3400.8500, L501.5101, L500.4050, L501.4700, L100.0100, L501.5200 ####[facility] [address] [place], [place], [phone] AST [Catalytic activity/Vol] 35 U/L Normal <=37 [facility] Comment on above: Performed By: #### L 501.2300, L3380.1000, L3400.8500, L501.5101, L500.4050, L501.4700, L100.0100, L501.5200 ####[facility] [address] [place], [address] Bilirubin [Mass/Vol] 0.21 mg/dL Normal 0.00-1.30 [facility] Comment on above: Performed By: #### L 501.2300, L3380.1000, L3400.8500, L501.5101, L500.4050, L501.4700, L100.0100, L501.5200 ####[facility] [address] [place], [address] BUN/CRE 16.7 RATIO Normal 10-20 [facility] Comment on above: Performed By: #### L 501.2300, L3380.1000, L3400.8500, L501.5101, L500.4050, L501.4700, L100.0100, L501.5200 ####[facility] [address] [place], [address] Calcium [Mass/Vol] 8.8 mg/dL Normal 7.6-11.0 [facility] Comment on above: Performed By: #### L 501.2300, L3380.1000, L3400.8500, L501.5101, L500.4050, L501.4700, L100.0100, L501.5200 ####[facility] [address] [place], [address] Chloride [Moles/Vol] 109 mmol/L High 98-108 [facility] Comment on above: Performed By: #### L 501.2300, L3380.1000, L3400.8500, L501.5101, L500.4050, L501.4700, L100.0100, L501.5200 ####[facility] [address] [place], [address] CO2 [Moles/Vol] 21.4 mmol/L Normal 21.0-32.0 [facility] Comment on above: Performed By: #### L 501.2300, L3380.1000, L3400.8500, L501.5101, L500.4050, L501.4700, L100.0100, L501.5200 ####[facility] [address] [place], [address] Creatinine [Mass/Vol] 1.30 mg/dL High 0.70-1.20 [facility] Comment on above: Performed By: #### L 501.2300, L3380.1000, L3400.8500, L501.5101, L500.4050, L501.4700, L100.0100, L501.5200 ####[facility] [address] [place], [place], [address] GAP 10 Normal 5-15 [facility] Comment on above: Performed By: #### L 501.2300, L3380.1000, L3400.8500, L501.5101, L500.4050, L501.4700, L100.0100, L501.5200 ####[facility] [address] [place], [address] GFR/1.73 sq M.predicted among non-blacks MDRD (S/P/Bld) [Vol rate/Area] 63 mL/min/{1.73_m2} Normal >60 [facility] Comment on above: Result Comment: mL/m in/1.73m2 CKD-EPI Creatinine Equation (2020) Performed By: #### L 501.2300, L3380.1000, L3400.8500, L501.5101, L500.4050, L501.4700, L100.0100, L501.5200 ####[facility] [address] [place], [place], [phone] Globulin (S) [Mass/Vol] 2.5 g/dL Normal 2.2-4.2 [facility] Comment on above: Performed By: #### L 501.2300, L3380.1000, L3400.8500, L501.5101, L500.4050, L501.4700, L100.0100, L501.5200 ####[facility] [address] [place], [place], [phone] Glucose [Mass/Vol] 102 mg/dL High 70-99 [facility] Comment on above: Performed By: #### L 501.2300, L3380.1000, L3400.8500, L501.5101, L500.4050, L501.4700, L100.0100, L501.5200 ####[facility] [address] [place], [address] Potassium [Moles/Vol] 4.1 mmol/L Normal 3.3-5.1 [facility] Comment on above: Performed By: #### L 501.2300, L3380.1000, L3400.8500, L501.5101, L500.4050, L501.4700, L100.0100, L501.5200 ####[facility] [address] [place], [address] Sodium [Moles/Vol] 141 mmol/L Normal 133-145 [facility] Comment on above: Performed By: #### L 501.2300, L3380.1000, L3400.8500, L501.5101, L500.4050, L501.4700, L100.0100, L501.5200 ####[facility] [address] [place], [address] T PROT 6.0 g/dL Normal 5.9-8.4 [facility] Comment on above: Performed By: #### L 501.2300, L3380.1000, L3400.8500, L501.5101, L500.4050, L501.4700, L100.0100, L501.5200 ####[facility] [address] [place], [address] Urea nitrogen [Mass/Vol] 22 mg/dL High 4-19 [facility] Comment on above: Performed By: #### L 501.2300, L3380.1000, L3400.8500, L501.5101, L500.4050, L501.4700, L100.0100, L501.5200 ####[facility] [address] [place], [address] Magnesiumon 11-09-2024 Magnesium [Mass/Vol] 1.9 mg/dL Normal 1.5-2.2 [facility] Comment on above: Performed By: #### L 501.2300, L3380.1000, L3400.8500, L501.5101, L500.4050, L501.4700, L100.0100, L501.5200 ####[facility] [address] [place], [address] Phosphoruson 11-09-2024 Phosphate [Mass/Vol] 2.8 mg/dL Normal 2.7-4.5 [facility] Comment on above: Performed By: #### L 501.2300, L3380.1000, L3400.8500, L501.5101, L500.4050, L501.4700, L100.0100, L501.5200 ####[facility] [address] [place], [address] Platelet estimateon 11-10-19 25 Platelets LM Ql (Bld) ADEQUATE ADEQ [facility] Review by pathologiston 10-31 Pathologist review Deandre (Unsp spec) [Interp] Reviewed [facility] Comment on above: Previous reported re sult: Patricia delgado Edited by: SAMIR on 11/25/24:1132SEE REPORT IN PATIENT'S EMR AMENDED REPORT 11/25/24 1132 PATH REV previously reported as: Patricia delgado L501.5101on 11-06-2024 GGTP 37 IU/L Normal 0-65 [facility] Comment on above: Order Comment: Test( s) [id number]-Cozkgeajfq (FK506), Bloodwas developed and its performance characteristicsdetermined by [facility]. It has not been cleared or approvedby the Food and Drug Administration. Result Comment: Perf ormed at: - [address] [id number] Director: Sergio Machado MD, Phone: [phone] at: [facility] [address] [id number] Director: Red Graham PhD, Phone: [phone] Performed By: #### L 501.5101, L3380.1000, L100.0100, L501.2300, L501.5200, L500.4050, L501.4700 ####[facility] [address] [place], [address] Tacrolimus (Prograf)on 11-06 Tacrolimus (Bld) [Mass/Vol] 5.4 ng/mL Normal 5.0-20.0 [facility] Comment on above: Order Comment: Test( s) [id number] (FK506), Bloodwas developed and its performance characteristicsdetermined by [facility]. It has not been cleared or approvedby [...] 501.5101, L3380.1000, L100.0100, L501.2300, L501.5200, L500.4050, L501.4700 ####[facility] [address] [place], [address] L3400.8500on 11-04-2024 CMV Quant DNA 914 IU/mL Normal Negative [facility] Comment on above: Result Comment: The quantitative range of this assay is 200 to 1 millionIU/mL. Performed By: #### L 3400.8500 ####[facility] [address] [place], [address] CMV Quant DNA 2.961 Normal . [facility] Comment on above: Result Comment: Resu lt Units: log10 IU/mLPerformed at: [facility] LabBuddyBounce[address] [id number] Director: Red Graham PhD, Phone: [phone] Performed By: #### L 3400.8500 ####[facility] [address] [place], [address] Automated lymphocyte count a s percentage of total leukocyteson 11-02-2024 Lymphocytes/100 WBC Auto (Unsp spec) 39.1 % 19-41 [facility] Basophil percentageon 2024 Basophils/100 WBC (Bld) 2.0 % High 0-1 [facility] Bilirubin, Directon 11-03-19 25 Bilirubin.direct [Mass/Vol] 0.10 mg/dL Normal 0.00-0.30 [facility] Comment on above: Performed By: #### L 501.5101, L3380.1000, L100.0100, L501.2300, L501.5200, L500.4050, L501.4700 ####[facility] [address] [place], [address] Blood manual differential co mment interpretation (narrative result)on 11-02-2024 Manual differential comment Deandre (Bld) [Interp] COMMENT [facility] Comment on above: LYMPHOPENIA.NEUTROPE DARLENE. CBC W/Diff, Automatedon SMEAR COMMENT COMMENT Normal [facility] Comment on above: Result Comment: LYMP HOPENIA.NEUTROPENIA. Performed By: #### L 501.5101, L3380.1000, L100.0100, L501.2300, L501.5200, L500.4050, L501.4700 ####[facility] [address] [place], [place], [id number] Comprehensive Metabolic Prof ilon 11-02-2024 Albumin [Mass/Vol] 3.7 g/dL Normal 3.4-4.8 [facility] Comment on above: Performed By: #### L 501.5101, L3380.1000, L100.0100, L501.2300, L501.5200, L500.4050, L501.4700 ####[facility] [address] [place], [address] Albumin/Globulin [Mass ratio] 1.4 {ratio} Normal 0.9-2.4 [facility] Comment on above: Performed By: #### L 501.5101, L3380.1000, L100.0100, L501.2300, L501.5200, L500.4050, L501.4700 ####[facility] [address] [place], [address] ALK PHOS 182 U/L High 40-129 [facility] Comment on above: Performed By: #### L 501.5101, L3380.1000, L100.0100, L501.2300, L501.5200, L500.4050, L501.4700 ####[facility] [address] [place], [address] ALT [Catalytic activity/Vol] 11 U/L Normal <=46 [facility] Comment on above: Performed By: #### L 501.5101, L3380.1000, L100.0100, L501.2300, L501.5200, L500.4050, L501.4700 ####[facility] [address] [place], [address] AST [Catalytic activity/Vol] 22 U/L Normal <=37 [facility] Comment on above: Performed By: #### L 501.5101, L3380.1000, L100.0100, L501.2300, L501.5200, L500.4050, L501.4700 ####[facility] [address] [place], [address] Bilirubin [Mass/Vol] 0.25 mg/dL Normal 0.00-1.30 [facility] Comment on above: Performed By: #### L 501.5101, L3380.1000, L100.0100, L501.2300, L501.5200, L500.4050, L501.4700 ####[facility] [address] [place], [address] BUN/CRE 17.3 RATIO Normal 10-20 [facility] Comment on above: Performed By: #### L 501.5101, L3380.1000, L100.0100, L501.2300, L501.5200, L500.4050, L501.4700 ####[facility] [address] [place], [address] Calcium [Mass/Vol] 9.3 mg/dL Normal 7.6-11.0 [facility] Comment on above: Performed By: #### L 501.5101, L3380.1000, L100.0100, L501.2300, L501.5200, L500.4050, L501.4700 ####[facility] [address] [place], [address] Chloride [Moles/Vol] 108 mmol/L Normal 98-108 [facility] Comment on above: Performed By: #### L 501.5101, L3380.1000, L100.0100, L501.2300, L501.5200, L500.4050, L501.4700 ####[facility] [address] [place], [address] CO2 [Moles/Vol] 22.4 mmol/L Normal 21.0-32.0 [facility] Comment on above: Performed By: #### L 501.5101, L3380.1000, L100.0100, L501.2300, L501.5200, L500.4050, L501.4700 ####[facility] [address] [place], [address] Creatinine [Mass/Vol] 1.79 mg/dL High 0.70-1.20 [facility] Comment on above: Performed By: #### L 501.5101, L3380.1000, L100.0100, L501.2300, L501.5200, L500.4050, L501.4700 ####[facility] [address] [place], [address] GAP 10 Normal 5-15 [facility] Comment on above: Performed By: #### L 501.5101, L3380.1000, L100.0100, L501.2300, L501.5200, L500.4050, L501.4700 ####[facility] [address] [place], [place], [phone](765) GFR/1.73 sq M.predicted among non-blacks MDRD (S/P/Bld) [Vol rate/Area] 43 mL/min/{1.73_m2} Low >60 [facility] Comment on above: Result Comment: mL/m in/1.73m2 CKD-EPI Creatinine Equation (2020) Performed By: #### L 501.5101, L3380.1000, L100.0100, L501.2300, L501.5200, L500.4050, L501.4700 ####[facility] [address] [place], [address] Globulin (S) [Mass/Vol] 2.7 g/dL Normal 2.2-4.2 [facility] Comment on above: Performed By: #### L 501.5101, L3380.1000, L100.0100, L501.2300, L501.5200, L500.4050, L501.4700 ####[facility] [address] [place], [place], [phone] Glucose [Mass/Vol] 72 mg/dL Normal 70-99 [facility] Comment on above: Performed By: #### L 501.5101, L3380.1000, L100.0100, L501.2300, L501.5200, L500.4050, L501.4700 ####[facility] [address] [place], [address] Potassium [Moles/Vol] 4.5 mmol/L Normal 3.3-5.1 [facility] Comment on above: Performed By: #### L 501.5101, L3380.1000, L100.0100, L501.2300, L501.5200, L500.4050, L501.4700 ####[facility] [address] [place], [address] Sodium [Moles/Vol] 140 mmol/L Normal 133-145 [facility] Comment on above: Performed By: #### L 501.5101, L3380.1000, L100.0100, L501.2300, L501.5200, L500.4050, L501.4700 ####[facility] [address] [place], [address] T PROT 6.5 g/dL Normal 5.9-8.4 [facility] Comment on above: Performed By: #### L 501.5101, L3380.1000, L100.0100, L501.2300, L501.5200, L500.4050, L501.4700 ####[facility] [address] [place], [address] Urea nitrogen [Mass/Vol] 31 mg/dL High 4-19 [facility] Comment on above: Performed By: #### L 501.5101, L3380.1000, L100.0100, L501.2300, L501.5200, L500.4050, L501.4700 ####[facility] [address] [place], [address] Eosinophil percentageon Eosinophils/100 WBC (Bld) 2.6 % 0-5 [facility] Immature granulocytes/100 WB C Auto (Bld)on 11-02-2024 Immature granulocytes/100 WBC (Bld) 3.300 % High 0.0-0.9 [facility] Comment on above: IG% - Immature Granu locytes (promyelocytes, myelocytes and metamyelocytes) > 1% indicates that a LEFT SHIFT is Present. Magnesiumon 11-02-2024 Magnesium [Mass/Vol] 2.0 mg/dL Normal 1.5-2.2 [facility] Comment on above: Performed By: #### L 501.5101, L3380.1000, L100.0100, L501.2300, L501.5200, L500.4050, L501.4700 ####[facility] [address] [place], [place], [address] Monocyte percentageon 2024 Monocytes/100 WBC (Bld) 5.3 % 0-10 [facility] Nucleated red blood cell per centageon 11-02-2024 Nucleated RBC/100 WBC (Bld) [Ratio] 0 % 0-5 [facility] Phosphoruson 11-02-2024 Phosphate [Mass/Vol] 3.0 mg/dL Normal 2.7-4.5 [facility] Comment on above: Performed By: #### L 501.5101, L3380.1000, L100.0100, L501.2300, L501.5200, L500.4050, L501.4700 ####[facility] [address] [place], [address] L3410.9992on 10-30-2024 [facility] Misc. COMMENT Normal . [facility] Comment on above: Order Comment: 56276 4PETH TEST WB RMT Result Comment: Test Ordered: [id number] Phosphatidylethanol (PEth)PHOSPHATIDYLETHANOL Negative MX Reference Range: .Phosphatidylethanol (PEth) Negative ng/mL MX Reference Range: .Analyzed compound: PEth 16:0/18:1. 9-hsgkqpifq-7-hldrjj-si-hcxzxxt-3-phosphoethanol.Analysis performed by Liquid Chromatography withTandem Mass Spectrometry [...] was developed and its performance characteristicsdetermined by [facility]. It has not been cleared or approvedby the Food and Drug Administration.Performed at: [employer] [address] [id number] Director: Clau Abdalla [facility], Phone: [phone] at: [facility] [address] [id number] Director: Red Graham PhD, Phone: [phone] Performed By: #### L 500.4050, L100.0100, L501.2300, L501.5101, L501.4700, L3410.9992, L3400.8500, L3380.1000, L501.5200 ####[facility] [address] [facility] [address] [place], [address] L3400.8500on 10-27-2024 CMV Quant DNA 3760 IU/mL Normal Negative [facility] Comment on above: Order Comment: Test( s) [id number]-Gihrluvboz (FK506), Bloodwas developed and its performance characteristicsdetermined by [facility]. It has not been cleared or approvedby the Food and Drug Administration. Result Comment: The quantitative range of this assay is 200 to 1 millionIU/mL. Performed By: #### L 500.4050, L100.0100, L501.2300, L501.5101, L501.4700, L3410.9992, L3400.8500, L3380.1000, L501.5200 ####[facility] [address] [place], [place], [address] CMV Quant DNA 3.575 Normal . [facility] Comment on above: Order Comment: Test( s) [id number]-Clqaoabgvt (FK506), Bloodwas developed and its performance characteristicsdetermined by [facility]. It has not been cleared or approvedby the Food and Drug Administration. Result Comment: Resu lt Units: log10 IU/mL Performed By: #### L 500.4050, L100.0100, L501.2300, L501.5101, L501.4700, L3410.9992, L3400.8500, L3380.1000, L501.5200 ####[facility] [address] [facility] [place], [place], [id number] L501.5101on 10-27-2024 GGTP 33 IU/L Normal 0-65 [facility] Comment on above: Order Comment: Test( s) [id number]-Ghklndrdpn (FK506), Bloodwas developed and its performance characteristicsdetermined by [facility]. It has not been cleared or approvedby the Food and Drug Administration. Result Comment: Perf ormed at: - [facility] [id number] Director: Red Graham PhD, Phone: [phone] at: [facility] Lab[address]dyBounce[address] [id number] Director: Sergio Machado MD, Phone: [phone] Performed By: #### L 500.4050, L100.0100, L501.2300, L501.5101, L501.4700, L3410.9992, L3400.8500, L3380.1000, L501.5200 ####[facility] [address] [facility] [place], [address] Tacrolimus (Prograf)on 10-27 Tacrolimus (Bld) [Mass/Vol] 8.7 ng/mL Normal 5.0-20.0 [facility] Comment on above: Order Comment: Test( s) [id number]-Pwfmfjxcqs (FK506), Bloodwas developed and its performance characteristicsdetermined by [facility]. It has not been cleared or approvedby [...] L501.2300, L501.5101, L501.4700, L3410.9992, L3400.8500, L3380.1000, L501.5200 ####[facility] [address] [place], [address] Absolute lymphocyte counton 10-24-2024 Lymphocytes Auto (Unsp spec) [#/Vol] 0.93 10*3/uL 0.83-4.51 [facility] Absolute neutrophil counton 10-24-2024 Neutrophils (Bld) [#/Vol] 1.4 10*3/uL Low 2.0-7.7 [facility] Anion gap in Serum or Plasma on 10-24-2024 Anion gap [Moles/Vol] 10 mmol/L 5-15 [facility] Automated lymphocyte count a s percentage of total leukocyteson 10-24-2024 Lymphocytes/100 WBC Auto (Unsp spec) 37.8 % 19-41 [facility] BUN/creatinine ratioon 10-24 Urea nitrogen/Creatinine [Mass ratio] 16.0 mg/mg 10-20 [facility] Basophil percentageon 2024 Basophils/100 WBC (Bld) 0.8 % 0-1 [facility] Bilirubin directon Bilirubin.direct [Mass/Vol] 0.19 mg/dL Normal 0.00-0.30 [facility] Comment on above: Performed By: #### L 500.4050, L100.0100, L501.2300, L501.5101, L501.4700, L3410.9992, L3400.8500, L3380.1000, L501.5200 ####[facility] [address] [place], [place], [phone] Bilirubin, totalon Bilirubin [Mass/Vol] 0.27 mg/dL Normal 0.00-1.30 [facility] Comment on above: Performed By: #### L 500.4050, L100.0100, L501.2300, L501.5101, L501.4700, L3410.9992, L3400.8500, L3380.1000, L501.5200 ####[facility] [address] [place], [place], [phone] Blood manual differential co mment interpretation (narrative result)on 10-24-2024 Manual differential comment Deandre (Bld) [Interp] SCANNED [facility] CBC W/Diff, Automatedon 10-01 SMEAR COMMENT SCANNED Normal [facility] Comment on above: Performed By: #### L 500.4050, L100.0100, L501.2300, L501.5101, L501.4700, L3410.9992, L3400.8500, L3380.1000, L501.5200 ####[facility] [address] [place], [place], [phone] Carbon dioxide, total [Moles /volume] in Central venous bloodon 10-24-2024 CO2 [Moles/Vol] 22.9 mmol/L Normal 21.0-32.0 [facility] Comment on above: Performed By: #### L 500.4050, L100.0100, L501.2300, L501.5101, L501.4700, L3410.9992, L3400.8500, L3380.1000, L501.5200 ####[facility] [address] [place], [place], [phone] Chloride assayon 10-24-2024 Chloride [Moles/Vol] 105 mmol/L Normal 98-108 [facility] Comment on above: Performed By: #### L 500.4050, L100.0100, L501.2300, L501.5101, L501.4700, L3410.9992, L3400.8500, L3380.1000, L501.5200 ####[facility] [address] [place], [address] Comprehensive Metabolic Prof ilon 10-24-2024 ALK PHOS 148 U/L High 40-129 [facility] Comment on above: Performed By: #### L 500.4050, L100.0100, L501.2300, L501.5101, L501.4700, L3410.9992, L3400.8500, L3380.1000, L501.5200 ####[facility] [address] [place], [place], [address] BUN/CRE 16.0 RATIO Normal 10-20 [facility] Comment on above: Performed By: #### L 500.4050, L100.0100, L501.2300, L501.5101, L501.4700, L3410.9992, L3400.8500, L3380.1000, L501.5200 ####[facility] [address] [place], [address] GAP 10 Normal 5-15 [facility] Comment on above: Performed By: #### L 500.4050, L100.0100, L501.2300, L501.5101, L501.4700, L3410.9992, L3400.8500, L3380.1000, L501.5200 ####[facility] [address] [place], [place], [phone] Potassium [Moles/Vol] 4.8 mmol/L Normal 3.3-5.1 [facility] Comment on above: Performed By: #### L 500.4050, L100.0100, L501.2300, L501.5101, L501.4700, L3410.9992, L3400.8500, L3380.1000, L501.5200 ####[facility] [address] [place], [place], [phone] T PROT 6.2 g/dL Normal 5.9-8.4 [facility] Comment on above: Performed By: #### L 500.4050, L100.0100, L501.2300, L501.5101, L501.4700, L3410.9992, L3400.8500, L3380.1000, L501.5200 ####[facility] [address] [place], [place], [phone] AST [Catalytic activity/Vol] 21 U/L Normal <=37 [facility] Comment on above: Performed By: #### L 500.4050, L100.0100, L501.2300, L501.5101, L501.4700, L3410.9992, L3400.8500, L3380.1000, L501.5200 ####[facility] [address] [place], [place], [phone] Cytomegalovirus (CMV) DNA me asurement by PCR (log units/volume)on 10-24-2024 CMV DNA JACKY+probe (P) [Log units/Vol] 3.575 IU/mL . [facility] Comment on above: Result Units: log10 IU/mL Eosinophil percentageon 10-01 Eosinophils/100 WBC (Bld) 0.8 % 0-5 [facility] Erythrocyte distribution wid th ratioon 10-24-2024 Erythrocyte distribution width (RBC) [Ratio] 15.0 % High 11.6-14.6 [facility] Erythrocyte distribution wid th standard deviationon 10-24-2024 Erythrocyte distribution width (RBC) [Ratio] 52.8 fl High 35.1-43.9 [facility] Gamma glutamyl transferase ( GGT) measurementon 10-24-2024 Amylase [Catalytic activity/Vol] 33 U/L 0-65 [facility] Comment on above: Performed at: [address] [id number] Director: Red Graham PhD, Phone: [phone] at: [address] [id number] Director: Sergio Machado MD, Phone: [phone] Glomerular filtration rate ( GFR) estimation/1.73 sq m using serum, plasma, or whole bon 10-24-2024 GFR/1.73 sq M.predicted among non-blacks MDRD (S/P/Bld) [Vol rate/Area] 55 mL/min/{1.73_m2} Low >60 [facility] Comment on above: mL/min/1.73m2 CKD-EP I Creatinine Equation (2020) Result Comment: mL/m in/1.73m2 CKD-EPI Creatinine Equation (2020) Performed By: #### L 500.4050, L100.0100, L501.2300, L501.5101, L501.4700, L3410.9992, L3400.8500, L3380.1000, L501.5200 ####[facility] [address] [place], [address] Hematocrit Auto (Bld) [Volum e fraction]on 10-24-2024 Hematocrit (Bld) [Volume fraction] 27.7 % Low 40-54 [facility] Hemoglobin measurementon Hemoglobin (Bld) [Mass/Vol] 8.7 g/dL Low 13.0-16.5 [facility] Immature granulocytes/100 WB C Auto (Bld)on 10-24-2024 Immature granulocytes/100 WBC (Bld) 0.800 % 0.0-0.9 [facility] Comment on above: IG% - Immature Granu locytes (promyelocytes, myelocytes and metamyelocytes) > 1% indicates that a LEFT SHIFT is Present. MCV (mean corpuscular volume ) determinationon 10-24-2024 MCV (RBC) [Entitic vol] 95.5 fL High 80-94 [facility] MRI PELVIS WITH AND WITHOUT CONTRASTon 10-24-2024 MRI PELVIS WITH AND WITHOUT CONTRAST Normal [facility] Magnesiumon 10-24-2024 Magnesium [Mass/Vol] 2.1 mg/dL Normal 1.5-2.2 [facility] Comment on above: Performed By: #### L 500.4050, L100.0100, L501.2300, L501.5101, L501.4700, L3410.9992, L3400.8500, L3380.1000, L501.5200 ####[facility] [address] [place], [place], [id number] Magnesium measurement (mass/ volume)on 10-24-2024 Magnesium (Unsp spec) [Mass/Vol] 2.1 mg/dL 1.5-2.2 [facility] Mean corpuscular hemoglobin (MCH) determinationon 10-24-2024 MCH (RBC) [Entitic mass] 30.0 pg 27.0-32.0 [facility] Mean corpuscular hemoglobin concentration (MCHC) determinationon 10-24-2024 MCHC (RBC) [Mass/Vol] 31.4 g/dL Low 32-36 [facility] Mean platelet volume determi nationon 10-24-2024 Platelet mean volume (Bld) [Entitic vol] 9.8 fL 6.2-12.0 [facility] Monocyte percentageon 2024 Monocytes/100 WBC (Bld) 4.5 % 0-10 [facility] Neutrophil percentageon 10-01 Neutrophils/100 WBC (Bld) 55.3 % 47-70 [facility] No Panel Informationon 10-24 21 U/L <38 [facility] Nucleated red blood cell per centageon 10-24-2024 Nucleated RBC/100 WBC (Bld) [Ratio] 0 % 0-5 [facility] Phosphoruson 10-24-2024 Phosphate [Mass/Vol] 3.3 mg/dL Normal 2.7-4.5 [facility] Comment on above: Performed By: #### L 500.4050, L100.0100, L501.2300, L501.5101, L501.4700, L3410.9992, L3400.8500, L3380.1000, L501.5200 ####[facility] [address] [place], [place], [phone] Platelet counton 10-24-2024 Platelets (Bld) [#/Vol] 506 10*3/uL High 150-450 [facility] Potassium measurement (mass/ volume)on 10-24-2024 Potassium (Unsp spec) [Mass/Vol] 4.8 mmol/L 3.3-5.1 [facility] RBC Auto (Bld) [#/Vol]on RBC (Bld) [#/Vol] 2.90 10*6/uL Low 4.6-6.2 [facility] Serum creatinine measurement (mass/volume)on 10-24-2024 Creatinine [Mass/Vol] 1.46 mg/dL High 0.70-1.20 [facility] Comment on above: Performed By: #### L 500.4050, L100.0100, L501.2300, L501.5101, L501.4700, L3410.9992, L3400.8500, L3380.1000, L501.5200 ####[facility] [address] [place], [place], [phone] Serum globulin measurementon 10-24-2024 Globulin (S) [Mass/Vol] 2.6 g/dL Normal 2.2-4.2 [facility] Comment on above: Performed By: #### L 500.4050, L100.0100, L501.2300, L501.5101, L501.4700, L3410.9992, L3400.8500, L3380.1000, L501.5200 ####[facility] [address] [place], [place], [id number] Serum glucose measurement (m ass/volume)on 10-24-2024 Glucose [Mass/Vol] 87 mg/dL Normal 70-99 [facility] Comment on above: Performed By: #### L 500.4050, L100.0100, L501.2300, L501.5101, L501.4700, L3410.9992, L3400.8500, L3380.1000, L501.5200 ####[facility] [address] [place], [address] Serum or plasma alanine craig otransferase (ALT) measurementon 10-24-2024 ALT [Catalytic activity/Vol] 11 U/L Normal <=46 [facility] Comment on above: Performed By: #### L 500.4050, L100.0100, L501.2300, L501.5101, L501.4700, L3410.9992, L3400.8500, L3380.1000, L501.5200 ####[facility] [address] [place], [address] Serum or plasma albumin megha urement (mass/volume)on 10-24-2024 Albumin [Mass/Vol] 3.6 g/dL Normal 3.4-4.8 [facility] Comment on above: Performed By: #### L 500.4050, L100.0100, L501.2300, L501.5101, L501.4700, L3410.9992, L3400.8500, L3380.1000, L501.5200 ####[facility] [address] [place], [address] Serum or plasma albumin/glob ulin mass ratioon 10-24-2024 Albumin/Globulin [Mass ratio] 1.4 {ratio} Normal 0.9-2.4 [facility] Comment on above: Performed By: #### L 500.4050, L100.0100, L501.2300, L501.5101, L501.4700, L3410.9992, L3400.8500, L3380.1000, L501.5200 ####[facility] [address] [place], [address] Serum or plasma alkaline sal sphatase measurementon 10-24-2024 ALP [Catalytic activity/Vol] 148 U/L High 40-129 [facility] Serum or plasma calcium megha urement (mass/volume)on 10-24-2024 Calcium [Mass/Vol] 9.1 mg/dL Normal 7.6-11.0 [facility] Comment on above: Performed By: #### L 500.4050, L100.0100, L501.2300, L501.5101, L501.4700, L3410.9992, L3400.8500, L3380.1000, L501.5200 ####[facility] [address] [place], [address] Serum or plasma urea nitroge n measurement (mass/volume)on 10-24-2024 Urea nitrogen [Mass/Vol] 23 mg/dL High - [facility] Comment on above: Performed By: #### L 500.4050, L100.0100, L501.2300, L501.5101, L501.4700, L3410.9992, L3400.8500, L3380.1000, L501.5200 ####[facility] [address] [place], [place], [phone] Sodium levelon 10-24-2024 Sodium [Moles/Vol] 138 mmol/L Normal 133-145 [facility] Comment on above: Performed By: #### L 500.4050, L100.0100, L501.2300, L501.5101, L501.4700, L3410.9992, L3400.8500, L3380.1000, L501.5200 ####[facility] [address] [place], [place], [address] Total proteinon 10-24-2024 Protein [Mass/Vol] 6.2 g/dL 5.9-8.4 [facility] White blood cell (WBC) count on 10-24-2024 WBC (Bld) [#/Vol] 2.5 10*3/uL Low 4.4-11.0 [facility] L3400.8500on 10-20-2024 CMV Quant DNA 3340 IU/mL Normal Negative [facility] Comment on above: Order Comment: Test( s) 351752-Jtzmhdgghh (FK506), Bloodwas developed and its performance characteristicsdetermined by [facility]. It has not been cleared or approvedby the Food and Drug Administration. Result Comment: The quantitative range of this assay is 200 to 1 millionIU/mL. Performed By: #### L 100.0100, L500.4050, L501.5200, L3380.1000, L501.2300, L501.4700, L3400.8500, L501.5101 ####[facility] [address] [place], [place], [address] CMV Quant DNA 3.524 Normal . [facility] Comment on above: Order Comment: Test( s) 926665-Wttjortrol (FK506), Bloodwas developed and its performance characteristicsdetermined by [facility]. It has not been cleared or approvedby the Food and Drug Administration. Result Comment: Resu lt Units: log10 IU/mL Performed By: #### L 100.0100, L500.4050, L501.5200, L3380.1000, L501.2300, L501.4700, L3400.8500, L501.5101 ####[facility] [address] [place], [place], [address] L501.5101on 10-20-2024 GGTP 47 IU/L Normal 0-65 [facility] Comment on above: Order Comment: Test( s) 822171-Clpqfobssq (FK506), Bloodwas developed and its performance characteristicsdetermined by [facility]. It has not been cleared or approvedby the Food and Drug Administration. Result Comment: Perf ormed at: [facility] [address] [id number] Director: Red Graham PhD, Phone: [phone] at: [facility] [address] [id number] Director: Sergio Machado MD, Phone: [phone] Performed By: #### L 100.0100, L500.4050, L501.5200, L3380.1000, L501.2300, L501.4700, L3400.8500, L501.5101 ####[facility] [address] [place], [place], [phone] Tacrolimus (Prograf)on 10-20 Tacrolimus (Bld) [Mass/Vol] 5.9 ng/mL Normal 5.0-20.0 [facility] Comment on above: Order Comment: Test( s) 666256-Mdldajupfl (FK506), Bloodwas developed and its performance characteristicsdetermined by [facility]. It has not been cleared or approvedby [...] L500.4050, L501.5200, L3380.1000, L501.2300, L501.4700, L3400.8500, L501.5101 ####[facility] [address] [place], [place], [phone] Bilirubin, Directon 10-18-19 Bilirubin.direct [Mass/Vol] 0.19 mg/dL Normal 0.00-0.30 [facility] Comment on above: Performed By: #### L 100.0100, L500.4050, L501.5200, L3380.1000, L501.2300, L501.4700, L3400.8500, L501.5101 ####[facility] [address] [place], [place], [phone] CBC W/Diff, Automatedon 08-1 8-2025 OVALOCYTE 1+ Normal [facility] Comment on above: Performed By: #### L 100.0100, L500.4050, L501.5200, L3380.1000, L501.2300, L501.4700, L3400.8500, L501.5101 ####[facility] [address] [place], [address] PLT EST ADEQUATE Normal ADEQ [facility] Comment on above: Performed By: #### L 100.0100, L500.4050, L501.5200, L3380.1000, L501.2300, L501.4700, L3400.8500, L501.5101 ####[facility] [address] [place], [address] ATYPICAL LYMPH 3+ Normal [facility] Comment on above: Performed By: #### L 100.0100, L500.4050, L501.5200, L3380.1000, L501.2300, L501.4700, L3400.8500, L501.5101 ####[facility] [address] [place], [place], [phone] Comprehensive Metabolic Prof [facility] 10-17-2024 Albumin [Mass/Vol] 3.5 g/dL Normal 3.4-4.8 [facility] Comment on above: Performed By: #### L 100.0100, L500.4050, L501.5200, L3380.1000, L501.2300, L501.4700, L3400.8500, L501.5101 ####[facility] [address] [place], [address] Albumin/Globulin [Mass ratio] 1.3 {ratio} Normal 0.9-2.4 [facility] Comment on above: Performed By: #### L 100.0100, L500.4050, L501.5200, L3380.1000, L501.2300, L501.4700, L3400.8500, L501.5101 ####[facility] [address] [place], [address] ALK PHOS 155 U/L High 40-129 [facility] Comment on above: Performed By: #### L 100.0100, L500.4050, L501.5200, L3380.1000, L501.2300, L501.4700, L3400.8500, L501.5101 ####[facility] [address] [place], [address] ALT [Catalytic activity/Vol] 15 U/L Normal <=46 [facility] Comment on above: Performed By: #### L 100.0100, L500.4050, L501.5200, L3380.1000, L501.2300, L501.4700, L3400.8500, L501.5101 ####[facility] [address] [place], [address] AST [Catalytic activity/Vol] 23 U/L Normal <=37 [facility] Comment on above: Performed By: #### L 100.0100, L500.4050, L501.5200, L3380.1000, L501.2300, L501.4700, L3400.8500, L501.5101 ####[facility] [address] [place], [address] Bilirubin [Mass/Vol] 0.30 mg/dL Normal 0.00-1.30 [facility] Comment on above: Performed By: #### L 100.0100, L500.4050, L501.5200, L3380.1000, L501.2300, L501.4700, L3400.8500, L501.5101 ####[facility] [address] [place], [address] BUN/CRE 18.1 RATIO Normal 10-20 [facility] Comment on above: Performed By: #### L 100.0100, L500.4050, L501.5200, L3380.1000, L501.2300, L501.4700, L3400.8500, L501.5101 ####[facility] [address] [place], [address] Calcium [Mass/Vol] 8.9 mg/dL Normal 7.6-11.0 [facility] Comment on above: Performed By: #### L 100.0100, L500.4050, L501.5200, L3380.1000, L501.2300, L501.4700, L3400.8500, L501.5101 ####[facility] [address] [place], [address] Chloride [Moles/Vol] 103 mmol/L Normal 98-108 [facility] Comment on above: Performed By: #### L 100.0100, L500.4050, L501.5200, L3380.1000, L501.2300, L501.4700, L3400.8500, L501.5101 ####[facility] [address] [place], [address] CO2 [Moles/Vol] 22.1 mmol/L Normal 21.0-32.0 [facility] Comment on above: Performed By: #### L 100.0100, L500.4050, L501.5200, L3380.1000, L501.2300, L501.4700, L3400.8500, L501.5101 ####[facility] [address] [place], [address] Creatinine [Mass/Vol] 1.15 mg/dL Normal 0.70-1.20 [facility] Comment on above: Performed By: #### L 100.0100, L500.4050, L501.5200, L3380.1000, L501.2300, L501.4700, L3400.8500, L501.5101 ####[facility] [address] [place], [address] GAP 11 Normal 5-15 [facility] Comment on above: Performed By: #### L 100.0100, L500.4050, L501.5200, L3380.1000, L501.2300, L501.4700, L3400.8500, L501.5101 ####[facility] [address] [place], [address] GFR/1.73 sq M.predicted among non-blacks MDRD (S/P/Bld) [Vol rate/Area] 73 mL/min/{1.73_m2} Normal >60 [facility] Comment on above: Result Comment: mL/m in/1.73m2 CKD-EPI Creatinine Equation (2020) Performed By: #### L 100.0100, L500.4050, L501.5200, L3380.1000, L501.2300, L501.4700, L3400.8500, L501.5101 ####[facility] [address] [place], [address] Globulin (S) [Mass/Vol] 2.8 g/dL Normal 2.2-4.2 [facility] Comment on above: Performed By: #### L 100.0100, L500.4050, L501.5200, L3380.1000, L501.2300, L501.4700, L3400.8500, L501.5101 ####[facility] [address] [place], [address] Glucose [Mass/Vol] 101 mg/dL High 70-99 [facility] Comment on above: Performed By: #### L 100.0100, L500.4050, L501.5200, L3380.1000, L501.2300, L501.4700, L3400.8500, L501.5101 ####[facility] [address] [place], [address] Potassium [Moles/Vol] 4.7 mmol/L Normal 3.3-5.1 [facility] Comment on above: Performed By: #### L 100.0100, L500.4050, L501.5200, L3380.1000, L501.2300, L501.4700, L3400.8500, L501.5101 ####[facility] [address] [place], [address] Sodium [Moles/Vol] 136 mmol/L Normal 133-145 [facility] Comment on above: Performed By: #### L 100.0100, L500.4050, L501.5200, L3380.1000, L501.2300, L501.4700, L3400.8500, L501.5101 ####[facility] [address] [place], [address] T PROT 6.3 g/dL Normal 5.9-8.4 [facility] Comment on above: Performed By: #### L 100.0100, L500.4050, L501.5200, L3380.1000, L501.2300, L501.4700, L3400.8500, L501.5101 ####[facility] [address] [place], [address] Urea nitrogen [Mass/Vol] 21 mg/dL High 4-19 [facility] Comment on above: Performed By: #### L 100.0100, L500.4050, L501.5200, L3380.1000, L501.2300, L501.4700, L3400.8500, L501.5101 ####[facility] [address] [place], [address] Magnesiumon 10-17-2024 Magnesium [Mass/Vol] 2.1 mg/dL Normal 1.5-2.2 [facility] Comment on above: Performed By: #### L 100.0100, L500.4050, L501.5200, L3380.1000, L501.2300, L501.4700, L3400.8500, L501.5101 ####[facility] [address] [place], [address] Ovalocyte detectionon 2024 Ovalocytes LM Ql (Bld) 1+ [facility] Phosphoruson 10-17-2024 Phosphate [Mass/Vol] 3.0 mg/dL Normal 2.7-4.5 [facility] Comment on above: Performed By: #### L 100.0100, L500.4050, L501.5200, L3380.1000, L501.2300, L501.4700, L3400.8500, L501.5101 ####[facility] [address] [place], [address] Platelet estimateon 10-18-19 25 Platelets LM Ql (Bld) ADEQUATE ADEQ [facility] L3400.8500on 10-15-2024 CMV Quant DNA 94249 IU/mL Normal Negative [facility] Comment on above: Order Comment: Test( s) 277702-Zphtrwlzns (FK506), Bloodwas developed and its performance characteristicsdetermined by [facility]. It has not been cleared or approvedby the Food and Drug Administration. Result Comment: The quantitative range of this assay is 200 to 1 millionIU/mL. Performed By: #### L 100.0100, L501.5200, L3400.8500, L3380.1000, L501.5101, L501.4700, L500.4050 ####[facility] [address] [place], [address] CMV Quant DNA 4.164 Normal . [facility] Comment on above: Order Comment: Test( s) 311123-Dhaipzjndb (FK506), Bloodwas developed and its performance characteristicsdetermined by [facility]. It has not been cleared or approvedby the Food and Drug Administration. Result Comment: Resu lt Units: log10 IU/mL Performed By: #### L 100.0100, L501.5200, L3400.8500, L3380.1000, L501.5101, L501.4700, L500.4050 ####[facility] [address] [place], [place], [id number] L501.5101on 10-15-2024 GGTP 71 IU/L Abnormal 0-65 [facility] Comment on above: Order Comment: Test( s) 008492-Rimfnrnwsq (FK506), Bloodwas developed and its performance characteristicsdetermined by [facility]. It has not been cleared or approvedby the Food and Drug Administration. Result Comment: Perf ormed at: - [address] [id number] Director: Red Graham PhD, Phone: [phone] at: [facility] [address] [id number] Director: Sergio Machado MD, Phone: [phone] Performed By: #### L 100.0100, L501.5200, L3400.8500, L3380.1000, L501.5101, L501.4700, L500.4050 ####[facility] [address] [place], [place], [phone] Tacrolimus (Prograf)on 10-15 Tacrolimus (Bld) [Mass/Vol] 5.2 ng/mL Normal 5.0-20.0 [facility] Comment on above: Order Comment: Test( s) 926071-Poqoezuitu (FK506), Bloodwas developed and its performance characteristicsdetermined by [facility]. It has not been cleared or approvedby [...] 100.0100, L501.5200, L3400.8500, L3380.1000, L501.5101, L501.4700, L500.4050 ####[facility] [address] [place], [address] CBC W/Diff, Automatedon 09-30 PATH REV Reviewed Normal [facility] Comment on above: Result Comment: SEE REPORT IN PATIENT'S EMR AMENDED REPORT 10/13/24 0904 PATH REV previously reported as: June Performed By: #### L 501.5101, L501.5200, L100.0100, L501.2300, L3380.1000, L501.4700, L500.4050, L3400.8500 ####[facility] [address] [place], [place], [phone] Bilirubin, Directon 10-13-19 25 Bilirubin.direct [Mass/Vol] 0.23 mg/dL Normal 0.00-0.30 [facility] Comment on above: Performed By: #### L 100.0100, L501.5200, L3400.8500, L3380.1000, L501.5101, L501.4700, L500.4050 ####[facility] [address] [place], [place], [phone] Blood hypersegmented neutrop hil counton 10-12-2024 Neutrophils.hypersegm ented (Bld) [#/Vol] 1+ [facility] Blood spherocyte detection b y light microscopyon 10-12-2024 Spherocytes LM Ql (Bld) 1+ [facility] CBC W/Diff, Automatedon 09-30 PLT EST ADEQUATE Normal ADEQ [facility] Comment on above: Performed By: #### L 100.0100, L501.5200, L3400.8500, L3380.1000, L501.5101, L501.4700, L500.4050 ####[facility] [address] [place], [address] SPHEROCYTE 1+ Abnormal [facility] Comment on above: Performed By: #### L 100.0100, L501.5200, L3400.8500, L3380.1000, L501.5101, L501.4700, L500.4050 ####[facility] [address] [place], [address] HYPERSEG 1+ Abnormal [facility] Comment on above: Performed By: #### L 100.0100, L501.5200, L3400.8500, L3380.1000, L501.5101, L501.4700, L500.4050 ####[facility] [address] [place], [address] REACTIVE LYMPH 2+ Normal [facility] Comment on above: Performed By: #### L 100.0100, L501.5200, L3400.8500, L3380.1000, L501.5101, L501.4700, L500.4050 ####[facility] [address] [place], [address] Comprehensive Metabolic Prof [facility] 10-12-2024 Albumin [Mass/Vol] 3.6 g/dL Normal 3.4-4.8 [facility] Comment on above: Performed By: #### L 100.0100, L501.5200, L3400.8500, L3380.1000, L501.5101, L501.4700, L500.4050 ####[facility] [address] [place], [address] Albumin/Globulin [Mass ratio] 1.3 {ratio} Normal 0.9-2.4 [facility] Comment on above: Performed By: #### L 100.0100, L501.5200, L3400.8500, L3380.1000, L501.5101, L501.4700, L500.4050 ####[facility] [address] [place], [address] ALK PHOS 184 U/L High 40-129 [facility] Comment on above: Performed By: #### L 100.0100, L501.5200, L3400.8500, L3380.1000, L501.5101, L501.4700, L500.4050 ####[facility] [address] [place], [address] ALT [Catalytic activity/Vol] 17 U/L Normal <=46 [facility] Comment on above: Performed By: #### L 100.0100, L501.5200, L3400.8500, L3380.1000, L501.5101, L501.4700, L500.4050 ####[facility] [address] [place], [place], [id number] AST [Catalytic activity/Vol] 23 U/L Normal <=37 [facility] Comment on above: Performed By: #### L 100.0100, L501.5200, L3400.8500, L3380.1000, L501.5101, L501.4700, L500.4050 ####[facility] [address] [place], [place], [address] Bilirubin [Mass/Vol] 0.34 mg/dL Normal 0.00-1.30 [facility] Comment on above: Performed By: #### L 100.0100, L501.5200, L3400.8500, L3380.1000, L501.5101, L501.4700, L500.4050 ####[facility] [address] [place], [address] BUN/CRE 15.8 RATIO Normal 10-20 [facility] Comment on above: Performed By: #### L 100.0100, L501.5200, L3400.8500, L3380.1000, L501.5101, L501.4700, L500.4050 ####[facility] [address] [place], [address] Calcium [Mass/Vol] 9.1 mg/dL Normal 7.6-11.0 [facility] Comment on above: Performed By: #### L 100.0100, L501.5200, L3400.8500, L3380.1000, L501.5101, L501.4700, L500.4050 ####[facility] [address] [place], [address] Chloride [Moles/Vol] 102 mmol/L Normal 98-108 [facility] Comment on above: Performed By: #### L 100.0100, L501.5200, L3400.8500, L3380.1000, L501.5101, L501.4700, L500.4050 ####[facility] [address] [place], [address] CO2 [Moles/Vol] 20.4 mmol/L Low 21.0-32.0 [facility] Comment on above: Performed By: #### L 100.0100, L501.5200, L3400.8500, L3380.1000, L501.5101, L501.4700, L500.4050 ####[facility] [address] [place], [address] Creatinine [Mass/Vol] 1.25 mg/dL High 0.70-1.20 [facility] Comment on above: Performed By: #### L 100.0100, L501.5200, L3400.8500, L3380.1000, L501.5101, L501.4700, L500.4050 ####[facility] [address] [place], [address] GAP 11 Normal 5-15 [facility] Comment on above: Performed By: #### L 100.0100, L501.5200, L3400.8500, L3380.1000, L501.5101, L501.4700, L500.4050 ####[facility] [address] [place], [address] GFR/1.73 sq M.predicted among non-blacks MDRD (S/P/Bld) [Vol rate/Area] 66 mL/min/{1.73_m2} Normal >60 [facility] Comment on above: Result Comment: mL/m in/1.73m2 CKD-EPI Creatinine Equation (2020) Performed By: #### L 100.0100, L501.5200, L3400.8500, L3380.1000, L501.5101, L501.4700, L500.4050 ####[facility] [address] [place], [address] Globulin (S) [Mass/Vol] 2.8 g/dL Normal 2.2-4.2 [facility] Comment on above: Performed By: #### L 100.0100, L501.5200, L3400.8500, L3380.1000, L501.5101, L501.4700, L500.4050 ####[facility] [address] [place], [address] Glucose [Mass/Vol] 94 mg/dL Normal 70-99 [facility] Comment on above: Performed By: #### L 100.0100, L501.5200, L3400.8500, L3380.1000, L501.5101, L501.4700, L500.4050 ####[facility] [address] [place], [address] Potassium [Moles/Vol] 4.6 mmol/L Normal 3.3-5.1 [facility] Comment on above: Performed By: #### L 100.0100, L501.5200, L3400.8500, L3380.1000, L501.5101, L501.4700, L500.4050 ####[facility] [address] [place], [address] Sodium [Moles/Vol] 133 mmol/L Normal 133-145 [facility] Comment on above: Performed By: #### L 100.0100, L501.5200, L3400.8500, L3380.1000, L501.5101, L501.4700, L500.4050 ####[facility] [address] [place], [address] T PROT 6.4 g/dL Normal 5.9-8.4 [facility] Comment on above: Performed By: #### L 100.0100, L501.5200, L3400.8500, L3380.1000, L501.5101, L501.4700, L500.4050 ####[facility] [address] [place], [address] Urea nitrogen [Mass/Vol] 20 mg/dL High 4-19 [facility] Comment on above: Performed By: #### L 100.0100, L501.5200, L3400.8500, L3380.1000, L501.5101, L501.4700, L500.4050 ####[facility] [address] [place], [address] Magnesiumon 10-12-2024 Magnesium [Mass/Vol] 1.9 mg/dL Normal 1.5-2.2 [facility] Comment on above: Performed By: #### L 100.0100, L501.5200, L3400.8500, L3380.1000, L501.5101, L501.4700, L500.4050 ####[facility] [address] [place], [address] ALBUMINon 10-10-2024 Albumin [Mass/Vol] 3.8 g/dL 3.5 - 5.0 g/dL [facility] Albumin [Mass/Vol] 3.8 g/dL Normal 3.5-5.0 [facility] Comment on above: Performed By: #### I PB, ALB ####[facility] (DEFAULT)[address] [place] [address] ALP ALT Sugar 10-10-2024 ALP [Catalytic activity/Vol] 172 U/L High 32 - 126 U/L [facility] ALT [Catalytic activity/Vol] 17 U/L 10 - 52 U/L [facility] AST [Catalytic activity/Vol] 21 U/L 10 - 39 U/L [facility] ALP [Catalytic activity/Vol] 172 U/L High 32-126 [facility] Comment on above: Performed By: #### C HM7, MGO, GGTB, CA, BILI, ENZ3 ####[facility] (DEFAULT)[address] [place] [address] ALT [Catalytic activity/Vol] 17 U/L Normal 10-52 [facility] Comment on above: Performed By: #### C HM7, MGO, GGTB, CA, BILI, ENZ3 ####[facility] (DEFAULT)[address] [place] [address] AST [Catalytic activity/Vol] 21 U/L Normal 10-39 [facility] Comment on above: Performed By: #### C HM7, MGO, GGTB, CA, BILI, ENZ3 ####[facility] (DEFAULT)[address] [place] [address] BILIRUBIN, TOTAL AND DIRECTo n 10-10-2024 Bilirubin [Mass/Vol] 0.5 mg/dL NINF - 1.5 mg/dL [facility] Bilirubin.direct [Mass/Vol] 0.1 mg/dL NINF - 0.3 mg/dL [facility] Bilirubin [Mass/Vol] 0.5 mg/dL Normal <1.5 [facility] Comment on above: Performed By: #### C HM7, MGO, GGTB, CA, BILI, ENZ3 ####[facility] (DEFAULT)[address] [place] [address] Bilirubin.indirect [Mass/Vol] 0.1 mg/dL Normal <0.3 [facility] Comment on above: Performed By: #### C HM7, MGO, GGTB, CA, BILI, ENZ3 ####[facility] (DEFAULT)[address] [place] [address] CALCIUMon 10-10-2024 Calcium [Mass/Vol] 8.8 mg/dL 8.6 - 10. 5 [facility] [Mass/Vol] 8.8 mg/dL Normal 8.6-10.5 [facility] Comment on above: Performed By: #### C HM7, MGO, GGTB, CA, BILI, ENZ3 ####[facility] (DEFAULT)[address] [place] [address] CBC AND ELECTRONIC DIFFon Basophils (Bld) [#/Vol] K/uL 0.00 - 0.09 K/uL [facility] Basophils/100 WBC (Bld) 0.6 % [facility] Differential cell count method Nom (Bld) Electronic Differential [facility] Eosinophils (Bld) [#/Vol] 0.12 10*3/uL 0.00 - 0.48 K/uL [facility] Eosinophils/100 WBC (Bld) 3.6 % [facility] Erythrocyte distribution width (RBC) [Ratio] 15.0 % High 10.9 - 14.3 % [facility] Hematocrit (Bld) [Volume fraction] 29.7 % Low 39.6 - 48.8 % [facility] Hemoglobin (Bld) [Mass/Vol] 9.3 g/dL Low 13.4 - 16.8 g/dL [facility] Immature granulocytes (Bld) [#/Vol] K/uL NINF - 0.07 K/uL [facility] Immature granulocytes/100 WBC (Bld) 0.9 % [facility] Interpretation and review of laboratory results Abnormal [facility] Lymphocytes (Bld) [#/Vol] 0.68 10*3/uL Low 0.83 - 3.57 K/uL [facility] Lymphocytes/100 WBC (Bld) 20.4 % [facility] MCH (RBC) [Entitic mass] 30.2 pg 26.1 - 33.3 pg [facility] MCHC (RBC) [Mass/Vol] 31.3 g/dL Low 31.9 - 36.5 g/dL [facility] MCV (RBC) [Entitic vol] 96.4 fL High 79.0 - 94.5 fL [facility] Monocytes (Bld) [#/Vol] 0.26 10*3/uL 0.24 - 0.93 K/uL [facility] Monocytes/100 WBC (Bld) 7.8 % [facility] Neutrophils (Bld) [#/Vol] 2.22 10*3/uL 1.57 - 6.19 K/uL [facility] Nucleated RBC/100 WBC (Bld) [Ratio] 0.0 % NINF [facility] Platelet mean volume (Bld) [Entitic vol] 10.4 fL 8.7 - 12.3 fL [facility] Platelets (Bld) [#/Vol] 341 10*3/uL High 146 - 337 K/uL [facility] RBC (Bld) [#/Vol] 3.08 10*6/uL Low [facility] Segmented neutrophils/100 WBC (Bld) 66.7 % [facility] WBC (Bld) [#/Vol] 3.33 10*3/uL Low 3.73 - 10. 10 K/uL [facility] Abs Baso Auto < Normal 0.00-0.09 [facility] Comment on above: Performed By: #### L AB980 ####[facility] (DEFAULT)[address] [place] [address] Basophils/100 WBC (Bld) 0.6 % Normal [facility] Comment on above: Performed By: #### L AB980 ####[facility] (DEFAULT)[address] [place] [address] DIFF STATUS Electronic Differential Normal [facility] Comment on above: Performed By: #### L AB980 ####[facility] (DEFAULT)[address] [place] [address], [place] [address] Eosinophils (Bld) [#/Vol] 0.12 10*3/uL Normal 0.00-0.48 [facility] Comment on above: Performed By: #### L AB980 ####[facility] (DEFAULT)[address] [place] [address], [place] [address] Eosinophils/100 WBC (Bld) 3.6 % Normal [facility] Comment on above: Performed By: #### L AB980 ####[facility] (DEFAULT)[address] [place] [address], [place] [address] Hematocrit (Bld) [Volume fraction] 29.7 % Low 39.6-48.8 [facility] Comment on above: Performed By: #### L AB980 ####[facility] (DEFAULT)[address] [place] [address], [place] [address] Hemoglobin (Bld) [Mass/Vol] 9.3 g/dL Low 13.4-16.8 [facility] Comment on above: Performed By: #### L AB980 ####[facility] (DEFAULT)[address] [place] [address] Immature Grans % 0.9 % Normal [facility] Comment on above: Performed By: #### L AB980 ####[facility] (DEFAULT)[address] [place] [address], [place] [address] Immature Grans Absolute < Normal <=0.07 [facility] Comment on above: Performed By: #### L AB980 ####[facility] (DEFAULT)[address] [place] [address] Lymphocytes (Bld) [#/Vol] 0.68 10*3/uL Low 0.83-3.57 [facility] Comment on above: Performed By: #### L AB980 ####[facility] (DEFAULT)[address] [place] [address] Lymphocytes/100 WBC (Bld) 20.4 % Normal [facility] Comment on above: Performed By: #### L AB980 ####[facility] (DEFAULT)[address] [place] [address] MCV (RBC) [Entitic vol] 96.4 fL High 79.0-94.5 [facility] Comment on above: Performed By: #### L AB980 ####[facility] (DEFAULT)[address] [place] [address] Mean Cell Hgb 30.2 pg Normal 26.1-33.3 [facility] Comment on above: Performed By: #### L AB980 ####[facility] (DEFAULT)[address] [place] [address] Mean Cell Hgb Conc 31.3 g/dL Low 31.9-36.5 [facility] Comment on above: Performed By: #### L AB980 ####[facility] (DEFAULT)[address] [place] [address] Monocytes (Bld) [#/Vol] 0.26 10*3/uL Normal 0.24-0.93 [facility] Comment on above: Performed By: #### L AB980 ####[facility] (DEFAULT)[address] [place] [address] Monocytes/100 WBC (Bld) 7.8 % Normal [facility] Comment on above: Performed By: #### L AB980 ####[facility] (DEFAULT)[address] [place] [address] Nucleated RBC 0.0 /100 WBC Normal <=0.2 [facility] Comment on above: Performed By: #### L AB980 ####[facility] (DEFAULT)[address] [place] [address] Platelet mean volume (Bld) [Entitic vol] 10.4 fL Normal 8.7-12.3 [facility] Comment on above: Performed By: #### L AB980 ####[facility] (DEFAULT)[address] [place] [address] Platelets (Bld) [#/Vol] 341 10*3/uL High 146-337 [facility] Comment on above: Performed By: #### L AB980 ####[facility] (DEFAULT)[address] [place] [address] RBC (Bld) [#/Vol] 3.08 10*6/uL Low 4.38-5.83 [facility] Comment on above: Performed By: #### L AB980 ####[facility] (DEFAULT)[address] [place] [address] RBC Distribution 15.0 % High 10.9-14.3 [facility] Comment on above: Performed By: #### L AB980 ####[facility] (DEFAULT)[address] [place] [address] Segs + Bands Auto 66.7 % Normal [facility] Comment on above: Performed By: #### L AB980 ####[facility] (DEFAULT)[address] [place] [address] Segs + Bands,Absolute Auto 2.22 K/uL Normal 1.57-6.19 [facility] Comment on above: Performed By: #### L AB980 ####[facility] (DEFAULT)[address] [place] [address] WBC (Bld) [#/Vol] 3.33 10*3/uL Low 3.73-10.10 [facility] Comment on above: Performed By: #### L AB980 ####[facility] (DEFAULT)[address] [place] [address] CHEM 7 (LYTES,BUN,CREA,GLUC) on 10-10-2024 Anion gap [Moles/Vol] 14 mmol/L 7 - 17 mmol/L [facility] Chloride [Moles/Vol] 101 mmol/L 98 - 10 8 mmol/L [facility] CO2 [Moles/Vol] 24 mmol/L 21 - 31 mmol/L [facility] Creatinine [Mass/Vol] 1.24 mg/dL 0.70 - 1.30 mg/dL [facility] eGFR, CKD-EPI, Male 66 - PINF [facility] Comment on above: Reported eGFR is bas ed on the CKD-EPI 2020 equation using creatinine, age, and sex. Glucose [Mass/Vol] 86 mg/dL 70 - 179 mg/dL [facility] Osmolality Calc [Osmolality] 285 [facility] Potassium [Moles/Vol] 4.6 mmol/L 3.5 - 5.0 mmol/L [facility] Sodium [Moles/Vol] 134 mmol/L Low 135 - 145 mmol/L [facility] Urea nitrogen [Mass/Vol] 22 mg/dL 7 - 25 mg/dL [facility] Urea nitrogen/Creatinine [Mass ratio] 18 mg/mg [facility] Anion gap [Moles/Vol] 14 mmol/L Normal 7-17 [facility] Comment on above: Performed By: #### C HM7, MGO, GGTB, CA, BILI, ENZ3 ####[facility] (DEFAULT)[address] [place] [address] Chloride [Moles/Vol] 101 mmol/L Normal 98-108 [facility] Comment on above: Performed By: #### C HM7, MGO, GGTB, CA, BILI, ENZ3 ####[facility] (DEFAULT)[address] [place] [address] CO2 [Moles/Vol] 24 mmol/L Normal 21-31 [facility] Comment on above: Performed By: #### C HM7, MGO, GGTB, CA, BILI, ENZ3 ####[facility] (DEFAULT)[address] [place] [address] Creatinine [Mass/Vol] 1.24 mg/dL Normal 0.70-1.30 [facility] Comment on above: Performed By: #### C HM7, MGO, GGTB, CA, BILI, ENZ3 ####[facility] (DEFAULT)[address] [place] [address] GFR/1.73 sq M.predicted among non-blacks MDRD (S/P/Bld) [Vol rate/Area] 67 mL/min/{1.73_m2} Normal >=60 [facility] Comment on above: Result Comment: Repo rted eGFR is based on the CKD-EPI 2020 equation using creatinine, age, and sex. Performed By: #### C HM7, MGO, GGTB, CA, BILI, ENZ3 ####[facility] (DEFAULT)[address] [place] [address] Glucose [Mass/Vol] 86 mg/dL Normal Nonfastin -179 mg/dL; Fastin-99 [facility] Comment on above: Performed By: #### C HM7, MGO, GGTB, CA, BILI, ENZ3 ####[facility] (DEFAULT)[address] [place] [address] Osmolality [Osmolality] 285 mosm/kg Normal 278-305 [facility] Comment on above: Performed By: #### C HM7, MGO, GGTB, CA, BILI, ENZ3 ####[facility] (DEFAULT)[address] [place] [address] Potassium [Moles/Vol] 4.6 mmol/L Normal 3.5-5.0 [facility] Comment on above: Performed By: #### C HM7, MGO, GGTB, CA, BILI, ENZ3 ####[facility] (DEFAULT)[address] [place] [address] Sodium [Moles/Vol] 134 mmol/L Low 135-145 [facility] Comment on above: Performed By: #### C HM7, MGO, GGTB, CA, BILI, ENZ3 ####[facility] (DEFAULT)[address] [place] [address] Urea nitrogen [Mass/Vol] 22 mg/dL Normal 7-25 [facility] Comment on above: Performed By: #### C HM7, MGO, GGTB, CA, BILI, ENZ3 ####[facility] (DEFAULT)[address] [place] [address] Urea nitrogen/Creatinine [Mass ratio] 18 mg/mg Normal [facility] Comment on above: Performed By: #### C HM7, MGO, GGTB, CA, BILI, ENZ3 ####[facility] (DEFAULT)[address] [place] [address] GGTon 10-10-2024 Gamma glutamyl transferase [Catalytic activity/Vol] 81 U/L High 8 - 64 U/L [facility] Gamma glutamyl transferase [Catalytic activity/Vol] 81 U/L High 8-64 [facility] Comment on above: Performed By: #### C HM7, MGO, GGTB, CA, BILI, ENZ3 ####[facility] (DEFAULT)[address] [place] [address] MAGNESIUMon 10-10-2024 Magnesium [Mass/Vol] 1.7 mg/dL 1.6 - 2 .6 mg/dL [facility] Magnesium [Mass/Vol] 1.7 mg/dL Normal 1.6-2.6 [facility] Comment on above: Performed By: #### C HM7, MGO, GGTB, CA, BILI, ENZ3 ####[facility] (DEFAULT)[address] [place] [address] No Panel Informationon 10-10 Interpretation and review of laboratory results Normal [facility] Interpretation and review of laboratory results Abnormal [facility] Interpretation and review of laboratory results Normal [facility] PHOSPHATE, INORGANICon 10-10 Phosphate [Mass/Vol] 3.3 mg/dL 2.2 - 4 .6 mg/dL [facility] Phosphorous 3.3 mg/dL Normal 2.2-4.6 [facility] Comment on above: Performed By: #### I PB, ALB ####[facility] (DEFAULT)[address] [place] [address] L3400.8500on 10-05-2024 CMV Quant DNA Positive Normal Negative [facility] Comment on above: Order Comment: Test( s) 996603-Rlwuebzfen (FK506), Bloodwas developed and its performance characteristicsdetermined by [employer]. It has not been cleared or approvedby the Food and Drug Administration. Result Comment: CMV DNA detected.The quantitative range of this assay is 200 to 1 millionIU/mL. Performed By: #### L 501.5101, L501.5200, L100.0100, L501.2300, L3380.1000, L501.4700, L500.4050, L3400.8500 ####[facility] [address] [place], [place], [id number] CMV Quant DNA TNP Normal . [facility] Comment on above: Order Comment: Test( s) 191809-Gqyaalhqun (FK506), Bloodwas developed and its performance characteristicsdetermined by [employer]. It has not been cleared or approvedby the Food and Drug Administration. Result Comment: Resu lt Units: log10 IU/mLUnable to calculate result since non-numeric resultobtained for component test. Performed By: #### L 501.5101, L501.5200, L100.0100, L501.2300, L3380.1000, L501.4700, L500.4050, L3400.8500 ####[facility] [address] [place], [place], [id number] L501.5101on 10-05-2024 GGTP 167 IU/L Abnormal 0-65 [facility] Comment on above: Order Comment: Test( s) 696186-Aylcrxehaz (FK506), Bloodwas developed and its performance characteristicsdetermined by [employer]. It has not been cleared or approvedby the Food and Drug Administration. Result Comment: Perf ormed at: [facility] [address] [id number] Director: Sergio Machado MD, Phone: [phone] at: [address] [id number] Director: Red Graham PhD, Phone: [phone] Performed By: #### L 501.5101, L501.5200, L100.0100, L501.2300, L3380.1000, L501.4700, L500.4050, L3400.8500 ####[facility] [address] [place], [place], [id number] Tacrolimus (Prograf)on 10-05 Tacrolimus (Bld) [Mass/Vol] 10.2 ng/mL Normal 5.0-20.0 [facility] Comment on above: Order Comment: Test( s) 098799-Lsmnnmzlsg (FK506), Bloodwas developed and its performance characteristicsdetermined by [employer]. It has not been cleared or approvedby [...] L501.5200, L100.0100, L501.2300, L3380.1000, L501.4700, L500.4050, L3400.8500 ####[facility] [address] [place], [place], [id number] Bilirubin, Directon 10-04-19 25 Bilirubin.direct [Mass/Vol] 1.48 mg/dL High 0.00-0.30 [facility] Comment on above: Performed By: #### L 501.5101, L501.5200, L100.0100, L501.2300, L3380.1000, L501.4700, L500.4050, L3400.8500 ####[facility] [address] [place], [address] Blood eosinophils/100 leukoc yteson 10-03-2024 Eosinophils/100 WBC (Bld) 8 % High 0-5 [facility] Blood lymphocytes/100 leukoc yteson 10-03-2024 Lymphocytes/100 WBC (Bld) 7 % Low 19-41 [facility] Blood metamyelocytes/100 susy kocyteson 10-03-2024 Metamyelocytes/100 WBC (Bld) 2 % High 0-1 [facility] Blood monocytes/100 leukocyt eson 10-03-2024 Monocytes/100 WBC (Bld) 2 % 0-10 [facility] Blood segmented neutrophils/ 100 leukocyteson 10-03-2024 Segmented neutrophils/100 WBC (Bld) 81 % High 47-70 [facility] Comprehensive Metabolic Prof ilon 10-03-2024 Albumin [Mass/Vol] 3.4 g/dL Normal 3.4-4.8 [facility] Comment on above: Order Comment: GG Performed By: #### L 501.5101, L501.5200, L100.0100, L501.2300, L3380.1000, L501.4700, L500.4050, L3400.8500 ####[facility] [address] [place], [address] Albumin/Globulin [Mass ratio] 1.3 {ratio} Normal 0.9-2.4 [facility] Comment on above: Order Comment: GG Performed By: #### L 501.5101, L501.5200, L100.0100, L501.2300, L3380.1000, L501.4700, L500.4050, L3400.8500 ####[facility] [address] [place], [address] ALK PHOS 266 U/L High 40-129 [facility] Comment on above: Order Comment: GG Performed By: #### L 501.5101, L501.5200, L100.0100, L501.2300, L3380.1000, L501.4700, L500.4050, L3400.8500 ####[facility] [address] [place], [place], [phone]) ALT [Catalytic activity/Vol] 71 U/L High <=46 [facility] Comment on above: Order Comment: GG Performed By: #### L 501.5101, L501.5200, L100.0100, L501.2300, L3380.1000, L501.4700, L500.4050, L3400.8500 ####[facility] [address] [place], [address] AST [Catalytic activity/Vol] 67 U/L High <=37 [facility] Comment on above: Order Comment: GG Performed By: #### L 501.5101, L501.5200, L100.0100, L501.2300, L3380.1000, L501.4700, L500.4050, L3400.8500 ####[facility] [address] [place], [address] Bilirubin [Mass/Vol] 1.67 mg/dL High 0.00-1.30 [facility] Comment on above: Order Comment: GG Performed By: #### L 501.5101, L501.5200, L100.0100, L501.2300, L3380.1000, L501.4700, L500.4050, L3400.8500 ####[facility] [address] [place], [address] BUN/CRE 22.8 RATIO High 10-20 [facility] Comment on above: Order Comment: GG Performed By: #### L 501.5101, L501.5200, L100.0100, L501.2300, L3380.1000, L501.4700, L500.4050, L3400.8500 ####[facility] [address] [place], [address] Calcium [Mass/Vol] 9.0 mg/dL Normal 7.6-11.0 [facility] Comment on above: Order Comment: GG Performed By: #### L 501.5101, L501.5200, L100.0100, L501.2300, L3380.1000, L501.4700, L500.4050, L3400.8500 ####[facility] [address] [place], [address] Chloride [Moles/Vol] 103 mmol/L Normal 98-108 [facility] Comment on above: Order Comment: GG Performed By: #### L 501.5101, L501.5200, L100.0100, L501.2300, L3380.1000, L501.4700, L500.4050, L3400.8500 ####[facility] [address] [place], [address] CO2 [Moles/Vol] 21.7 mmol/L Normal 21.0-32.0 [facility] Comment on above: Order Comment: GG Performed By: #### L 501.5101, L501.5200, L100.0100, L501.2300, L3380.1000, L501.4700, L500.4050, L3400.8500 ####[facility] [address] [place], [address] Creatinine [Mass/Vol] 1.58 mg/dL High 0.70-1.20 [facility] Comment on above: Order Comment: GG Performed By: #### L 501.5101, L501.5200, L100.0100, L501.2300, L3380.1000, L501.4700, L500.4050, L3400.8500 ####[facility] [address] [place], [address] GAP 11 Normal 5-15 [facility] Comment on above: Order Comment: GG Performed By: #### L 501.5101, L501.5200, L100.0100, L501.2300, L3380.1000, L501.4700, L500.4050, L3400.8500 ####[facility] [address] [place], [place], [id number] GFR/1.73 sq M.predicted among non-blacks MDRD (S/P/Bld) [Vol rate/Area] 50 mL/min/{1.73_m2} Low >60 [facility] Comment on above: Order Comment: GG Result Comment: mL/m in/1.73m2 CKD-EPI Creatinine Equation (2020) Performed By: #### L 501.5101, L501.5200, L100.0100, L501.2300, L3380.1000, L501.4700, L500.4050, L3400.8500 ####[facility] [address] [place], [address] Globulin (S) [Mass/Vol] 2.7 g/dL Normal 2.2-4.2 [facility] Comment on above: Order Comment: GG Performed By: #### L 501.5101, L501.5200, L100.0100, L501.2300, L3380.1000, L501.4700, L500.4050, L3400.8500 ####[facility] [address] [place], [address] Glucose [Mass/Vol] 138 mg/dL High 70-99 [facility] Comment on above: Order Comment: GG Performed By: #### L 501.5101, L501.5200, L100.0100, L501.2300, L3380.1000, L501.4700, L500.4050, L3400.8500 ####[facility] [address] [place], [address] Potassium [Moles/Vol] 4.3 mmol/L Normal 3.3-5.1 [facility] Comment on above: Order Comment: GG Performed By: #### L 501.5101, L501.5200, L100.0100, L501.2300, L3380.1000, L501.4700, L500.4050, L3400.8500 ####[facility] [address] [place], [address] Sodium [Moles/Vol] 136 mmol/L Normal 133-145 [facility] Comment on above: Order Comment: GG Performed By: #### L 501.5101, L501.5200, L100.0100, L501.2300, L3380.1000, L501.4700, L500.4050, L3400.8500 ####[facility] [address] [place], [address] T PROT 6.1 g/dL Normal 5.9-8.4 [facility] Comment on above: Order Comment: GG Performed By: #### L 501.5101, L501.5200, L100.0100, L501.2300, L3380.1000, L501.4700, L500.4050, L3400.8500 ####[facility] [address] [place], [address] Urea nitrogen [Mass/Vol] 36 mg/dL High 4-19 [facility] Comment on above: Order Comment: GG Performed By: #### L 501.5101, L501.5200, L100.0100, L501.2300, L3380.1000, L501.4700, L500.4050, L3400.8500 ####[facility] [address] [place], [address] Magnesiumon 10-03-2024 Magnesium [Mass/Vol] 2.1 mg/dL Normal 1.5-2.2 [facility] Comment on above: Performed By: #### L 501.5101, L501.5200, L100.0100, L501.2300, L3380.1000, L501.4700, L500.4050, L3400.8500 ####[facility] [address] [place], [address] Phosphoruson 10-03-2024 Phosphate [Mass/Vol] 2.3 mg/dL Low 2.7-4.5 [facility] Comment on above: Performed By: #### L 501.5101, L501.5200, L100.0100, L501.2300, L3380.1000, L501.4700, L500.4050, L3400.8500 ####[facility] [address] [facility] [place], [address] Review by pathologiston Pathologist review Deandre (Unsp spec) [Interp] Reviewed [facility] Comment on above: Previous reported re sult: Patricia delgado Edited by: SAMIR on 10/13/24:0904SEE REPORT IN PATIENT'S EMR AMENDED REPORT 10/13/24 0904 PATH REV previously reported as: Patricia delgado Total cell counton 5 Cells counted [employer] (Bld/Tiss) [#] 100 MANUAL DIFF [facility] L3410.9992on 09-30-2024 [facility] Misc. COMMENT Normal . [facility] Comment on above: Order Comment: 32339 4PETH LAV WB RT Result Comment: Test Ordered: [id number] Phosphatidylethanol (PEth)PHOSPHATIDYLETHANOL Negative MX Reference Range: .Phosphatidylethanol (PEth) Negative ng/mL MX Reference Range: .Analyzed compound: PEth 16:0/18:1. 5-qdcumnjci-2-khmdda-xo-wdraect-3-phosphoethanol.Analysis performed by Liquid Chromatography withTandem Mass Spectrometry [...] was developed and its performance characteristicsdetermined by [facility]. It has not been cleared or approvedby the Food and Drug Administration.Performed at: [employer] [address] [id number] Director: Clau Abdalla [facility], Phone: [phone] at: [facility] [address] [id number] Director: Red Graham PhD, Phone: [phone] Performed By: #### L 501.5200, L501.2300, L100.0100, L3400.8500, L501.5101, L3410.9992, L500.4050, L501.4700, L3380.1000 ####[facility] [address] [place], [place], [id number] L3400.8500on 09-28-2024 CMV Quant DNA Negative Normal Negative [facility] Comment on above: Order Comment: Test( s) 592682-Hzfaemjwhm (FK506), Bloodwas developed and its performance characteristicsdetermined by [facility]. It has not been cleared or approvedby the Food and Drug Administration. Result Comment: No C MV DNA detected.The quantitative range of this assay is 200 to 1 millionIU/mL. Performed By: #### L 501.5200, L501.2300, L100.0100, L3400.8500, L501.5101, L3410.9992, L500.4050, L501.4700, L3380.1000 ####[facility] [address] [place], [place], [address] CMV Quant DNA TNP Normal . [facility] Comment on above: Order Comment: Test( s) 145721-Dgwuopkfca (FK506), Bloodwas developed and its performance characteristicsdetermined by [facility]. It has not been cleared or approvedby the Food and Drug Administration. Result Comment: Resu lt Units: log10 IU/mLUnable to calculate result since non-numeric resultobtained for component test. Performed By: #### L 501.5200, L501.2300, L100.0100, L3400.8500, L501.5101, L3410.9992, L500.4050, L501.4700, L3380.1000 ####[facility] [address] [facility]. [place], [place], [address] L501.5101on 09-28-2024 GGTP 38 IU/L Normal 0-65 [facility] Comment on above: Order Comment: Test( s) 666161-Dxqtseuhiz (FK506), Bloodwas developed and its performance characteristicsdetermined by [facility]. It has not been cleared or approvedby the Food and Drug Administration. Result Comment: Perf ormed at: [facility] [address] [id number] Director: Sergio Machado MD, Phone: [phone] at: [address] [id number] Director: Red Graham PhD, Phone: [phone] Performed By: #### L 501.5200, L501.2300, L100.0100, L3400.8500, L501.5101, L3410.9992, L500.4050, L501.4700, L3380.1000 ####[facility] [address] [place], [place], [phone] Tacrolimus (Prograf)on 09-28 Tacrolimus (Bld) [Mass/Vol] 6.0 ng/mL Normal 5.0-20.0 [facility] Comment on above: Order Comment: Test( s) 705769-Dgvfsqexlr (FK506), Bloodwas developed and its performance characteristicsdetermined by [facility]. It has not been cleared or approvedby [...] L100.0100, L3400.8500, L501.5101, L3410.9992, L500.4050, L501.4700, L3380.1000 ####[facility] [address] [place], [address] Absolute lymphocyte countOrd ered By: Babs Marley on 09-26-2024 Lymphocytes Auto (Unsp spec) [#/Vol] 0.84 10*3/uL 0.83-4.51 [facility] Absolute neutrophil countOrd ered By: Babs Marley on 09-26-2024 Neutrophils (Bld) [#/Vol] 2.8 10*3/uL 2.0-7.7 [facility] Anion gap in Serum or Plasma Ordered By: Babs Marley on 09-26-2024 Anion gap [Moles/Vol] 12 mmol/L 5-15 [facility] Automated lymphocyte count a s percentage of total leukocytesOrdered By: Babs Marley on 09-26-2024 Lymphocytes/100 WBC Auto (Unsp spec) 17.3 % Low 19-41 [facility] BUN/creatinine ratioOrdered By: Babs Marley on 09-26-2024 Urea nitrogen/Creatinine [Mass ratio] 17.7 mg/mg 10-20 [facility] Basophil percentageOrdered B y: Babs Marley on 09-26-2024 Basophils/100 WBC (Bld) 1.0 % 0-1 [facility] Bilirubin directOrdered By: Babs Marley on 09-26-2024 Bilirubin.direct [Mass/Vol] 0.11 mg/dL 0.00-0.30 [facility] Bilirubin, Directon 09-27-19 25 Bilirubin.direct [Mass/Vol] 0.11 mg/dL Normal 0.00-0.30 [facility] Comment on above: Performed By: #### L 501.5200, L501.2300, L100.0100, L3400.8500, L501.5101, L3410.9992, L500.4050, L501.4700, L3380.1000 ####[facility] [address] [place], [place], [phone]) Bilirubin, totalOrdered By: Babs Marley on 09-26-2024 Bilirubin [Mass/Vol] 0.22 mg/dL 0.00-1.30 [facility] CBC W/Diff, Automatedon 08-31 Absolute Lymph 0.84 X10 3/uL Normal 0.83-4.51 [facility] Comment on above: Performed By: #### L 501.5200, L501.2300, L100.0100, L3400.8500, L501.5101, L3410.9992, L500.4050, L501.4700, L3380.1000 ####[facility] [address] [place], [address] Absolute Neut 2.8 X10 3/uL Normal 2.0-7.7 [facility] Comment on above: Performed By: #### L 501.5200, L501.2300, L100.0100, L3400.8500, L501.5101, L3410.9992, L500.4050, L501.4700, L3380.1000 ####[facility] [address] [place], [place], [phone]) Basophils/100 WBC (Bld) 1.0 % Normal 0-1 [facility] Comment on above: Performed By: #### L 501.5200, L501.2300, L100.0100, L3400.8500, L501.5101, L3410.9992, L500.4050, L501.4700, L3380.1000 ####[facility] [address] [facility] [place], [place], [phone]) Eosinophils/100 WBC (Bld) 9.7 % High 0-5 [facility] Comment on above: Performed By: #### L 501.5200, L501.2300, L100.0100, L3400.8500, L501.5101, L3410.9992, L500.4050, L501.4700, L3380.1000 ####[facility] [address] [facility] [place], [place], [phone](092) Erythrocyte distribution width (RBC) [Ratio] 14.8 % High 11.6-14.6 [facility] Comment on above: Performed By: #### L 501.5200, L501.2300, L100.0100, L3400.8500, L501.5101, L3410.9992, L500.4050, L501.4700, L3380.1000 ####[facility] [address] [place], [place], [phone](233) Hematocrit (Bld) [Volume fraction] 26.3 % Low 40-54 [facility] Comment on above: Performed By: #### L 501.5200, L501.2300, L100.0100, L3400.8500, L501.5101, L3410.9992, L500.4050, L501.4700, L3380.1000 ####[facility] [address] [place], [address] Hemoglobin (Bld) [Mass/Vol] 8.3 g/dL Low 13.0-16.5 [facility] Comment on above: Performed By: #### L 501.5200, L501.2300, L100.0100, L3400.8500, L501.5101, L3410.9992, L500.4050, L501.4700, L3380.1000 ####[facility] [address] [place], [address] IG% 1.200 High 0.0-0.9 [facility] Comment on above: Result Comment: IG% - Immature Granulocytes (promyelocytes, myelocytes andmetamyelocytes) > 1% indicates that a LEFT SHIFT is Present. Performed By: #### L 501.5200, L501.2300, L100.0100, L3400.8500, L501.5101, L3410.9992, L500.4050, L501.4700, L3380.1000 ####[facility] [address] [place], [address] Lymphocytes/100 WBC (Bld) 17.3 % Low 19-41 [facility] Comment on above: Performed By: #### L 501.5200, L501.2300, L100.0100, L3400.8500, L501.5101, L3410.9992, L500.4050, L501.4700, L3380.1000 ####[facility] [address] [place], [address] MCH (RBC) [Entitic mass] 31.3 pg Normal 27.0-32.0 [facility] Comment on above: Performed By: #### L 501.5200, L501.2300, L100.0100, L3400.8500, L501.5101, L3410.9992, L500.4050, L501.4700, L3380.1000 ####[facility] [address] [place], [address] MCHC (RBC) [Mass/Vol] 31.6 g/dL Low 32-36 [facility] Comment on above: Performed By: #### L 501.5200, L501.2300, L100.0100, L3400.8500, L501.5101, L3410.9992, L500.4050, L501.4700, L3380.1000 ####[facility] [address] [place], [address] MCV (RBC) [Entitic vol] 99.2 fL High 80-94 [facility] Comment on above: Performed By: #### L 501.5200, L501.2300, L100.0100, L3400.8500, L501.5101, L3410.9992, L500.4050, L501.4700, L3380.1000 ####[facility] [address] [place], [address] Monocytes/100 WBC (Bld) 12.8 % High 0-10 [facility] Comment on above: Performed By: #### L 501.5200, L501.2300, L100.0100, L3400.8500, L501.5101, L3410.9992, L500.4050, L501.4700, L3380.1000 ####[facility] [address] [place], [address] Neutrophils/100 WBC (Bld) 58.0 % Normal 47-70 [facility] Comment on above: Performed By: #### L 501.5200, L501.2300, L100.0100, L3400.8500, L501.5101, L3410.9992, L500.4050, L501.4700, L3380.1000 ####[facility] [address] [place], [address] Nucleated RBC (Bld) [#/Vol] 0 10*3/uL Normal 0-5 [facility] Comment on above: Performed By: #### L 501.5200, L501.2300, L100.0100, L3400.8500, L501.5101, L3410.9992, L500.4050, L501.4700, L3380.1000 ####[facility] [address] [place], [address] Platelet mean volume (Bld) [Entitic vol] 10.3 fL Normal 6.2-12.0 [facility] Comment on above: Performed By: #### L 501.5200, L501.2300, L100.0100, L3400.8500, L501.5101, L3410.9992, L500.4050, L501.4700, L3380.1000 ####[facility] [address] [place], [address] Platelets (Bld) [#/Vol] 362 10*3/uL Normal 150-450 [facility] Comment on above: Performed By: #### L 501.5200, L501.2300, L100.0100, L3400.8500, L501.5101, L3410.9992, L500.4050, L501.4700, L3380.1000 ####[facility] [address] [place], [address] RBC (Bld) [#/Vol] 2.65 10*6/uL Low 4.6-6.2 [facility] Comment on above: Performed By: #### L 501.5200, L501.2300, L100.0100, L3400.8500, L501.5101, L3410.9992, L500.4050, L501.4700, L3380.1000 ####[facility] [address] [place], [address] RDW SD 54.1 fl High 35.1-43.9 [facility] Comment on above: Performed By: #### L 501.5200, L501.2300, L100.0100, L3400.8500, L501.5101, L3410.9992, L500.4050, L501.4700, L3380.1000 ####[facility] [address] [place], [address](335) WBC (Bld) [#/Vol] 4.9 10*3/uL Normal 4.4-11.0 [facility] Comment on above: Performed By: #### L 501.5200, L501.2300, L100.0100, L3400.8500, L501.5101, L3410.9992, L500.4050, L501.4700, L3380.1000 ####[facility] [address] [place], [place], [phone] Carbon dioxide, total [Moles /volume] in Central venous bloodOrdered By: Babs Marley on 09-26-2024 CO2 [Moles/Vol] 23.1 mmol/L 21.0-32.0 [facility] Chloride assayOrdered By: Yissel Marley on 09-26-2024 Chloride [Moles/Vol] 102 mmol/L 98-108 [facility] Comprehensive Metabolic Prof ilon 09-26-2024 Albumin [Mass/Vol] 3.7 g/dL Normal 3.4-4.8 [facility] Comment on above: Performed By: #### L 501.5200, L501.2300, L100.0100, L3400.8500, L501.5101, L3410.9992, L500.4050, L501.4700, L3380.1000 ####[facility] [address] [place], [address](223) Albumin/Globulin [Mass ratio] 1.4 {ratio} Normal 0.9-2.4 [facility] Comment on above: Performed By: #### L 501.5200, L501.2300, L100.0100, L3400.8500, L501.5101, L3410.9992, L500.4050, L501.4700, L3380.1000 ####[facility] [address] [place], [address] ALK PHOS 124 U/L Normal 40-129 [facility] Comment on above: Performed By: #### L 501.5200, L501.2300, L100.0100, L3400.8500, L501.5101, L3410.9992, L500.4050, L501.4700, L3380.1000 ####[facility] [address] [place], [address] ALT [Catalytic activity/Vol] 16 U/L Normal <=46 [facility] Comment on above: Performed By: #### L 501.5200, L501.2300, L100.0100, L3400.8500, L501.5101, L3410.9992, L500.4050, L501.4700, L3380.1000 ####[facility] [address] [place], [address] AST [Catalytic activity/Vol] 28 U/L Normal <=37 [facility] Comment on above: Performed By: #### L 501.5200, L501.2300, L100.0100, L3400.8500, L501.5101, L3410.9992, L500.4050, L501.4700, L3380.1000 ####[facility] [address] [place], [address] Bilirubin [Mass/Vol] 0.22 mg/dL Normal 0.00-1.30 [facility] Comment on above: Performed By: #### L 501.5200, L501.2300, L100.0100, L3400.8500, L501.5101, L3410.9992, L500.4050, L501.4700, L3380.1000 ####[facility] [address] [place], [address] BUN/CRE 17.7 RATIO Normal 10-20 [facility] Comment on above: Performed By: #### L 501.5200, L501.2300, L100.0100, L3400.8500, L501.5101, L3410.9992, L500.4050, L501.4700, L3380.1000 ####[facility] [address] [place], [address] Calcium [Mass/Vol] 9.3 mg/dL Normal 7.6-11.0 [facility] Comment on above: Performed By: #### L 501.5200, L501.2300, L100.0100, L3400.8500, L501.5101, L3410.9992, L500.4050, L501.4700, L3380.1000 ####[facility] [address] [place], [address] Chloride [Moles/Vol] 102 mmol/L Normal 98-108 [facility] Comment on above: Performed By: #### L 501.5200, L501.2300, L100.0100, L3400.8500, L501.5101, L3410.9992, L500.4050, L501.4700, L3380.1000 ####[facility] [address] [place], [address] CO2 [Moles/Vol] 23.1 mmol/L Normal 21.0-32.0 [facility] Comment on above: Performed By: #### L 501.5200, L501.2300, L100.0100, L3400.8500, L501.5101, L3410.9992, L500.4050, L501.4700, L3380.1000 ####[facility] [address] [place], [place], [phone] Creatinine [Mass/Vol] 1.24 mg/dL High 0.70-1.20 [facility] Comment on above: Performed By: #### L 501.5200, L501.2300, L100.0100, L3400.8500, L501.5101, L3410.9992, L500.4050, L501.4700, L3380.1000 ####[facility] [address] [place], [place], [phone] GAP 12 Normal 5-15 [facility] Comment on above: Performed By: #### L 501.5200, L501.2300, L100.0100, L3400.8500, L501.5101, L3410.9992, L500.4050, L501.4700, L3380.1000 ####[facility] [address] [place], [place], [phone] GFR/1.73 sq M.predicted among non-blacks MDRD (S/P/Bld) [Vol rate/Area] 67 mL/min/{1.73_m2} Normal >60 [facility] Comment on above: Result Comment: mL/m in/1.73m2 CKD-EPI Creatinine Equation (2020) Performed By: #### L 501.5200, L501.2300, L100.0100, L3400.8500, L501.5101, L3410.9992, L500.4050, L501.4700, L3380.1000 ####[facility] [address] [place], [place], [phone] Globulin (S) [Mass/Vol] 2.6 g/dL Normal 2.2-4.2 [facility] Comment on above: Performed By: #### L 501.5200, L501.2300, L100.0100, L3400.8500, L501.5101, L3410.9992, L500.4050, L501.4700, L3380.1000 ####[facility] [address] [place], [address] Glucose [Mass/Vol] 91 mg/dL Normal 70-99 [facility] Comment on above: Performed By: #### L 501.5200, L501.2300, L100.0100, L3400.8500, L501.5101, L3410.9992, L500.4050, L501.4700, L3380.1000 ####[facility] [address] [place], [address] Potassium [Moles/Vol] 4.3 mmol/L Normal 3.3-5.1 [facility] Comment on above: Performed By: #### L 501.5200, L501.2300, L100.0100, L3400.8500, L501.5101, L3410.9992, L500.4050, L501.4700, L3380.1000 ####[facility] [address] [place], [address] Sodium [Moles/Vol] 137 mmol/L Normal 133-145 [facility] Comment on above: Performed By: #### L 501.5200, L501.2300, L100.0100, L3400.8500, L501.5101, L3410.9992, L500.4050, L501.4700, L3380.1000 ####[facility] [address] [place], [address] T PROT 6.3 g/dL Normal 5.9-8.4 [facility] Comment on above: Performed By: #### L 501.5200, L501.2300, L100.0100, L3400.8500, L501.5101, L3410.9992, L500.4050, L501.4700, L3380.1000 ####[facility] [address] [place], [place], [phone] Urea nitrogen [Mass/Vol] 22 mg/dL High 4-19 [facility] Comment on above: Performed By: #### L 501.5200, L501.2300, L100.0100, L3400.8500, L501.5101, L3410.9992, L500.4050, L501.4700, L3380.1000 ####[facility] [address] [place], [place], [phone] Cytomegalovirus (CMV) DNA me asurement by PCR (log units/volume)Ordered By: Babs Marley on 09-26-2024 CMV DNA JACKY+probe (P) [Log units/Vol] TNP [facility] Comment on above: Test not performedRe sult Units: log10 IU/mLUnable to calculate result since non-numeric resultobtained for component test. Eosinophil percentageOrdered By: Babs Marley on 09-26-2024 Eosinophils/100 WBC (Bld) 9.7 % High 0-5 [facility] Erythrocyte distribution wid th ratioOrdered By: Gregorylindsey Marley on 09-26-2024 Erythrocyte distribution width (RBC) [Ratio] 14.8 % High 11.6-14.6 [facility] Erythrocyte distribution wid th standard deviationOrdered By: Babs Marley on 09-26-2024 Erythrocyte distribution width (RBC) [Ratio] 54.1 fl High 35.1-43.9 [facility] Gamma glutamyl transferase ( GGT) measurementOrdered By: Babs Marley on 09-26-2024 Amylase [Catalytic activity/Vol] 38 U/L 0-65 [facility] Comment on above: Performed at: [facility] - [facility] [address] [id number] Director: Sergio Machado MD, Phone: [phone] at: - [facility] [address] [id number] Director: Red Graham PhD, Phone: [phone] Glomerular filtration rate ( GFR) estimation/1.73 sq m using serum, plasma, or whole bOrdered By: Babs Marley on 09-26-2024 GFR/1.73 sq M.predicted among non-blacks MDRD (S/P/Bld) [Vol rate/Area] 67 mL/min/{1.73_m2} >60 [facility] Comment on above: mL/min/1.73m2 CKD-EP I Creatinine Equation (2020) Hematocrit Auto (Bld) [Volum e fraction]Ordered By: Babs Marley on 09-26-2024 Hematocrit (Bld) [Volume fraction] 26.3 % Low 40-54 [facility] Hemoglobin measurementOrdere d By: Babs Marley on 09-26-2024 Hemoglobin (Bld) [Mass/Vol] 8.3 g/dL Low 13.0-16.5 [facility] Immature granulocytes/100 WB C Auto (Bld)Ordered By: Babs Marley on 09-26-2024 Immature granulocytes/100 WBC (Bld) 1.200 % High 0.0-0.9 [facility] Comment on above: IG% - Immature Granu locytes (promyelocytes, myelocytes and metamyelocytes) > 1% indicates that a LEFT SHIFT is Present. Laboratory - Chemistry and C hemistry - challengeOrdered By: Babs Marley on 09-26-2024 AST [Catalytic activity/Vol] 28 U/L <38 [facility] MCV (mean corpuscular volume ) determinationOrdered By: Babs Marley on 09-26-2024 MCV (RBC) [Entitic vol] 99.2 fL High 80-94 [facility] Magnesiumon 09-26-2024 Magnesium [Mass/Vol] 1.9 mg/dL Normal 1.5-2.2 [facility] Comment on above: Performed By: #### L 501.5200, L501.2300, L100.0100, L3400.8500, L501.5101, L3410.9992, L500.4050, L501.4700, L3380.1000 ####[facility] [address] [place], [place], [id number] Magnesium measurement (mass/ volume)Ordered By: Babs Marley on 09-26-2024 Magnesium (Unsp spec) [Mass/Vol] 1.9 mg/dL 1.5-2.2 [facility] Mean corpuscular hemoglobin (MCH) determinationOrdered By: Babs Marley on 09-26-2024 MCH (RBC) [Entitic mass] 31.3 pg 27.0-32.0 [facility] Mean corpuscular hemoglobin concentration (MCHC) determinationOrdered By: Babs Marley on 09-26-2024 MCHC (RBC) [Mass/Vol] 31.6 g/dL Low 32-36 [facility] Mean platelet volume determi nationOrdered By: Babs Marley on 09-26-2024 Platelet mean volume (Bld) [Entitic vol] 10.3 fL 6.2-12.0 [facility] Monocyte percentageOrdered B y: Babs Marley on 09-26-2024 Monocytes/100 WBC (Bld) 12.8 % High 0-10 [facility] Neutrophil percentageOrdered By: Babs Marley on 09-26-2024 Neutrophils/100 WBC (Bld) 58.0 % 47-70 [facility] No Panel InformationOrdered By: Babs Marley on 09-26-2024 28 U/L <38 [facility] Nucleated red blood cell per centageOrdered By: Babs Marley on 09-26-2024 Nucleated RBC/100 WBC (Bld) [Ratio] 0 % 0-5 [facility] Phosphoruson 09-26-2024 Phosphate [Mass/Vol] 3.5 mg/dL Normal 2.7-4.5 [facility] Comment on above: Performed By: #### L 501.5200, L501.2300, L100.0100, L3400.8500, L501.5101, L3410.9992, L500.4050, L501.4700, L3380.1000 ####[facility] [address] [place], [address] Platelet countOrdered By: Yissel Marley on 09-26-2024 Platelets (Bld) [#/Vol] 362 10*3/uL 150-450 [facility] Potassium measurement (mass/ volume)Ordered By: Babs Marley on 09-26-2024 Potassium (Unsp spec) [Mass/Vol] 4.3 mmol/L 3.3-5.1 [facility] RBC Auto (Bld) [#/Vol]Ordere d By: Babs Marley on 09-26-2024 RBC (Bld) [#/Vol] 2.65 10*6/uL Low 4.6-6.2 [facility] Serum creatinine measurement (mass/volume)Ordered By: Babs Marley on 09-26-2024 Creatinine [Mass/Vol] 1.24 mg/dL High 0.70-1.20 [facility] Serum globulin measurementOr dered By: Babs Marley on 09-26-2024 Globulin (S) [Mass/Vol] 2.6 g/dL 2.2-4.2 [facility] Serum glucose measurement (m ass/volume)Ordered By: Babs Marley on 09-26-2024 Glucose [Mass/Vol] 91 mg/dL 70-99 [facility] Serum or plasma alanine craig otransferase (ALT) measurementOrdered By: Babs Marley on 09-26-2024 ALT [Catalytic activity/Vol] 16 U/L <47 [facility] Serum or plasma albumin megha urement (mass/volume)Ordered By: Babs Marley on 09-26-2024 Albumin [Mass/Vol] 3.7 g/dL 3.4-4.8 [facility] Serum or plasma albumin/glob ulin mass ratioOrdered By: Babs Marley on 09-26-2024 Albumin/Globulin [Mass ratio] 1.4 {ratio} 0.9-2.4 [facility] Serum or plasma alkaline sal sphatase measurementOrdered By: Babs Marley on 09-26-2024 ALP [Catalytic activity/Vol] 124 U/L 40-129 [facility] Serum or plasma calcium megha urement (mass/volume)Ordered By: Babs Marley on 09-26-2024 Calcium [Mass/Vol] 9.3 mg/dL 7.6-11.0 [facility] Serum or plasma urea nitroge n measurement (mass/volume)Ordered By: Gregorykiranlindsey Marley on 09-26-2024 Urea nitrogen [Mass/Vol] 22 mg/dL High 4-19 [facility] Sodium levelOrdered By: Gregory Bosearya on 09-26-2024 Sodium [Moles/Vol] 137 mmol/L 133-145 [facility] Total proteinOrdered By: Lorena celina Donell on 09-26-2024 Protein [Mass/Vol] 6.3 g/dL 5.9-8.4 [facility] White blood cell (WBC) count Ordered By: Gregorykiranlindsey Marley on 09-26-2024 WBC (Bld) [#/Vol] 4.9 10*3/uL 4.4-11.0 [facility] L3400.8500on 09-21-2024 CMV Quant DNA Negative Normal Negative [facility] Comment on above: Order Comment: Test( s) [id number] (FK506), Bloodwas developed and its performance characteristicsdetermined by [facility]. It has not been cleared or approvedby the Food and Drug Administration. Result Comment: No C MV DNA detected.The quantitative range of this assay is 200 to 1 millionIU/mL. Performed By: #### L 3380.1000, L501.2300, L501.5200, L100.0100, L500.4050, L501.5101, L3400.8500, L501.4700 ####[facility] [address] [place], [place], [phone] CMV Quant DNA TNP Normal . [facility] Comment on above: Order Comment: Test( s) [id number] (FK506), Bloodwas developed and its performance characteristicsdetermined by [facility]. It has not been cleared or approvedby the Food and Drug Administration. Result Comment: Resu lt Units: log10 IU/mLUnable to calculate result since non-numeric resultobtained for component test. Performed By: #### L 3380.1000, L501.2300, L501.5200, L100.0100, L500.4050, L501.5101, L3400.8500, L501.4700 ####[facility] [address] [place], [place], [id number] L501.5101on 09-21-2024 GGTP 41 IU/L Normal 0-65 [facility] Comment on above: Order Comment: Test( s) [id number] (FK506), Bloodwas developed and its performance characteristicsdetermined by [facility]. It has not been cleared or approvedby the Food and Drug Administration. Result Comment: Perf ormed at: [facility] [address] [id number] Director: Sergio Machado MD, Phone: [phone] at: [facility] [address] [id number] Director: Red Graham PhD, Phone: [phone] Performed By: #### L 3380.1000, L501.2300, L501.5200, L100.0100, L500.4050, L501.5101, L3400.8500, L501.4700 ####[facility] [address] [place], [place], [phone] Tacrolimus (Prograf)on 09-21 Tacrolimus (Bld) [Mass/Vol] 6.9 ng/mL Normal 5.0-20.0 [facility] Comment on above: Order Comment: Test( s) [id number] (FK506), Bloodwas developed and its performance characteristicsdetermined by [facility]. It has not been cleared or approvedby [...] L501.2300, L501.5200, L100.0100, L500.4050, L501.5101, L3400.8500, L501.4700 ####[facility] [address] [place], [place], [phone] Bilirubin, Directon 09-20-19 25 Bilirubin.direct [Mass/Vol] 0.11 mg/dL Normal 0.00-0.30 [facility] Comment on above: Performed By: #### L 3380.1000, L501.2300, L501.5200, L100.0100, L500.4050, L501.5101, L3400.8500, L501.4700 ####[facility] [address] [place], [place], [id number] CBC W/Diff, Automatedon 07-04 02-2024 Absolute Lymph 0.83 X10 3/uL Normal 0.83-4.51 [facility] Comment on above: Performed By: #### L 3380.1000, L501.2300, L501.5200, L100.0100, L500.4050, L501.5101, L3400.8500, L501.4700 ####[facility] [address] [place], [address] Absolute Neut 4.3 X10 3/uL Normal 2.0-7.7 [facility] Comment on above: Performed By: #### L 3380.1000, L501.2300, L501.5200, L100.0100, L500.4050, L501.5101, L3400.8500, L501.4700 ####[facility] [address] [place], [place], [phone](627) Basophils/100 WBC (Bld) 1.0 % Normal 0-1 [facility] Comment on above: Performed By: #### L 3380.1000, L501.2300, L501.5200, L100.0100, L500.4050, L501.5101, L3400.8500, L501.4700 ####[facility] [address] [place], [address] Eosinophils/100 WBC (Bld) 5.5 % High 0-5 [facility] Comment on above: Performed By: #### L 3380.1000, L501.2300, L501.5200, L100.0100, L500.4050, L501.5101, L3400.8500, L501.4700 ####[facility] [address] [place], [address] Erythrocyte distribution width (RBC) [Ratio] 14.6 % Normal 11.6-14.6 [facility] Comment on above: Performed By: #### L 3380.1000, L501.2300, L501.5200, L100.0100, L500.4050, L501.5101, L3400.8500, L501.4700 ####[facility] [address] [place], [address] Hematocrit (Bld) [Volume fraction] 29.7 % Low 40-54 [facility] Comment on above: Performed By: #### L 3380.1000, L501.2300, L501.5200, L100.0100, L500.4050, L501.5101, L3400.8500, L501.4700 ####[facility] [address] [place], [address] Hemoglobin (Bld) [Mass/Vol] 9.4 g/dL Low 13.0-16.5 [facility] Comment on above: Performed By: #### L 3380.1000, L501.2300, L501.5200, L100.0100, L500.4050, L501.5101, L3400.8500, L501.4700 ####[facility] [address] [place], [address] IG% 1.100 High 0.0-0.9 [facility] Comment on above: Result Comment: IG% - Immature Granulocytes (promyelocytes, myelocytes andmetamyelocytes) > 1% indicates that a LEFT SHIFT is Present. Performed By: #### L 3380.1000, L501.2300, L501.5200, L100.0100, L500.4050, L501.5101, L3400.8500, L501.4700 ####[facility] [address] [place], [address] Lymphocytes/100 WBC (Bld) 13.5 % Low 19-41 [facility] Comment on above: Performed By: #### L 3380.1000, L501.2300, L501.5200, L100.0100, L500.4050, L501.5101, L3400.8500, L501.4700 ####[facility] [address] [place], [address] MCH (RBC) [Entitic mass] 31.1 pg Normal 27.0-32.0 [facility] Comment on above: Performed By: #### L 3380.1000, L501.2300, L501.5200, L100.0100, L500.4050, L501.5101, L3400.8500, L501.4700 ####[facility] [address] [place], [address] MCHC (RBC) [Mass/Vol] 31.6 g/dL Low 32-36 [facility] Comment on above: Performed By: #### L 3380.1000, L501.2300, L501.5200, L100.0100, L500.4050, L501.5101, L3400.8500, L501.4700 ####[facility] [address] [place], [address] MCV (RBC) [Entitic vol] 98.3 fL High 80-94 [facility] Comment on above: Performed By: #### L 3380.1000, L501.2300, L501.5200, L100.0100, L500.4050, L501.5101, L3400.8500, L501.4700 ####[facility] [address] [place], [address] Monocytes/100 WBC (Bld) 9.4 % Normal 0-10 [facility] Comment on above: Performed By: #### L 3380.1000, L501.2300, L501.5200, L100.0100, L500.4050, L501.5101, L3400.8500, L501.4700 ####[facility] [address] [place], [address] Neutrophils/100 WBC (Bld) 69.5 % Normal 47-70 [facility] Comment on above: Performed By: #### L 3380.1000, L501.2300, L501.5200, L100.0100, L500.4050, L501.5101, L3400.8500, L501.4700 ####[facility] [address] [place], [address] Nucleated RBC (Bld) [#/Vol] 0 10*3/uL Normal 0-5 [facility] Comment on above: Performed By: #### L 3380.1000, L501.2300, L501.5200, L100.0100, L500.4050, L501.5101, L3400.8500, L501.4700 ####[facility] [address] [place], [address] Platelet mean volume (Bld) [Entitic vol] 9.9 fL Normal 6.2-12.0 [facility] Comment on above: Performed By: #### L 3380.1000, L501.2300, L501.5200, L100.0100, L500.4050, L501.5101, L3400.8500, L501.4700 ####[facility] [address] [place], [address] Platelets (Bld) [#/Vol] 491 10*3/uL High 150-450 [facility] Comment on above: Performed By: #### L 3380.1000, L501.2300, L501.5200, L100.0100, L500.4050, L501.5101, L3400.8500, L501.4700 ####[facility] [address] [place], [address] RBC (Bld) [#/Vol] 3.02 10*6/uL Low 4.6-6.2 [facility] Comment on above: Performed By: #### L 3380.1000, L501.2300, L501.5200, L100.0100, L500.4050, L501.5101, L3400.8500, L501.4700 ####[facility] [address] [place], [address] RDW SD 52.7 fl High 35.1-43.9 [facility] Comment on above: Performed By: #### L 3380.1000, L501.2300, L501.5200, L100.0100, L500.4050, L501.5101, L3400.8500, L501.4700 ####[facility] [address] [place], [address] WBC (Bld) [#/Vol] 6.2 10*3/uL Normal 4.4-11.0 [facility] Comment on above: Performed By: #### L 3380.1000, L501.2300, L501.5200, L100.0100, L500.4050, L501.5101, L3400.8500, L501.4700 ####[facility] [address] [place], [address] Comprehensive Metabolic Prof ilon 07-21-2025 Albumin [Mass/Vol] 3.8 g/dL Normal 3.4-4.8 [facility] Comment on above: Performed By: #### L 3380.1000, L501.2300, L501.5200, L100.0100, L500.4050, L501.5101, L3400.8500, L501.4700 ####[facility] [address] [place], [place], [phone] Albumin/Globulin [Mass ratio] 1.4 {ratio} Normal 0.9-2.4 [facility] Comment on above: Performed By: #### L 3380.1000, L501.2300, L501.5200, L100.0100, L500.4050, L501.5101, L3400.8500, L501.4700 ####[facility] [address] [place], [place], [phone] ALK PHOS 151 U/L High 40-129 [facility] Comment on above: Performed By: #### L 3380.1000, L501.2300, L501.5200, L100.0100, L500.4050, L501.5101, L3400.8500, L501.4700 ####[facility] [address] [place], [place], [id number] ALT [Catalytic activity/Vol] 9 U/L Normal <=46 [facility] Comment on above: Performed By: #### L 3380.1000, L501.2300, L501.5200, L100.0100, L500.4050, L501.5101, L3400.8500, L501.4700 ####[facility] [address] [place], [place], [phone] AST [Catalytic activity/Vol] 19 U/L Normal <=37 [facility] Comment on above: Performed By: #### L 3380.1000, L501.2300, L501.5200, L100.0100, L500.4050, L501.5101, L3400.8500, L501.4700 ####[facility] [address] [place], [address] Bilirubin [Mass/Vol] 0.23 mg/dL Normal 0.00-1.30 [facility] Comment on above: Performed By: #### L 3380.1000, L501.2300, L501.5200, L100.0100, L500.4050, L501.5101, L3400.8500, L501.4700 ####[facility] [address] [place], [address] BUN/CRE 15.9 RATIO Normal 10-20 [facility] Comment on above: Performed By: #### L 3380.1000, L501.2300, L501.5200, L100.0100, L500.4050, L501.5101, L3400.8500, L501.4700 ####[facility] [address] [place], [address] Calcium [Mass/Vol] 9.5 mg/dL Normal 7.6-11.0 [facility] Comment on above: Performed By: #### L 3380.1000, L501.2300, L501.5200, L100.0100, L500.4050, L501.5101, L3400.8500, L501.4700 ####[facility] [address] [place], [address] Chloride [Moles/Vol] 105 mmol/L Normal 98-108 [facility] Comment on above: Performed By: #### L 3380.1000, L501.2300, L501.5200, L100.0100, L500.4050, L501.5101, L3400.8500, L501.4700 ####[facility] [address] [place], [address] CO2 [Moles/Vol] 21.9 mmol/L Normal 21.0-32.0 [facility] Comment on above: Performed By: #### L 3380.1000, L501.2300, L501.5200, L100.0100, L500.4050, L501.5101, L3400.8500, L501.4700 ####[facility] [address] [place], [place], [phone]) Creatinine [Mass/Vol] 1.23 mg/dL High 0.70-1.20 [facility] Comment on above: Performed By: #### L 3380.1000, L501.2300, L501.5200, L100.0100, L500.4050, L501.5101, L3400.8500, L501.4700 ####[facility] [address] [place], [address] GAP 11 Normal 5-15 [facility] Comment on above: Performed By: #### L 3380.1000, L501.2300, L501.5200, L100.0100, L500.4050, L501.5101, L3400.8500, L501.4700 ####[facility] [address] [place], [place], [phone](093) GFR/1.73 sq M.predicted among non-blacks MDRD (S/P/Bld) [Vol rate/Area] 67 mL/min/{1.73_m2} Normal >60 [facility] Comment on above: Result Comment: mL/m in/1.73m2 CKD-EPI Creatinine Equation (2020) Performed By: #### L 3380.1000, L501.2300, L501.5200, L100.0100, L500.4050, L501.5101, L3400.8500, L501.4700 ####[facility] [address] [place], [address](169) Globulin (S) [Mass/Vol] 2.8 g/dL Normal 2.2-4.2 [facility] Comment on above: Performed By: #### L 3380.1000, L501.2300, L501.5200, L100.0100, L500.4050, L501.5101, L3400.8500, L501.4700 ####[facility] [address] [place], [address] Glucose [Mass/Vol] 111 mg/dL High 70-99 [facility] Comment on above: Performed By: #### L 3380.1000, L501.2300, L501.5200, L100.0100, L500.4050, L501.5101, L3400.8500, L501.4700 ####[facility] [address] [place], [address] Potassium [Moles/Vol] 4.5 mmol/L Normal 3.3-5.1 [facility] Comment on above: Performed By: #### L 3380.1000, L501.2300, L501.5200, L100.0100, L500.4050, L501.5101, L3400.8500, L501.4700 ####[facility] [address] [place], [address] Sodium [Moles/Vol] 138 mmol/L Normal 133-145 [facility] Comment on above: Performed By: #### L 3380.1000, L501.2300, L501.5200, L100.0100, L500.4050, L501.5101, L3400.8500, L501.4700 ####[facility] [address] [place], [address] T PROT 6.6 g/dL Normal 5.9-8.4 [facility] Comment on above: Performed By: #### L 3380.1000, L501.2300, L501.5200, L100.0100, L500.4050, L501.5101, L3400.8500, L501.4700 ####[facility] [address] [place], [address] Urea nitrogen [Mass/Vol] 20 mg/dL High 4-19 [facility] Comment on above: Performed By: #### L 3380.1000, L501.2300, L501.5200, L100.0100, L500.4050, L501.5101, L3400.8500, L501.4700 ####[facility] [address] [place], [address] Magnesiumon 09-19-2024 Magnesium [Mass/Vol] 1.8 mg/dL Normal 1.5-2.2 [facility] Comment on above: Performed By: #### L 3380.1000, L501.2300, L501.5200, L100.0100, L500.4050, L501.5101, L3400.8500, L501.4700 ####[facility] [address] [place], [address] Phosphoruson 09-19-2024 Phosphate [Mass/Vol] 3.4 mg/dL Normal 2.7-4.5 [facility] Comment on above: Performed By: #### L 3380.1000, L501.2300, L501.5200, L100.0100, L500.4050, L501.5101, L3400.8500, L501.4700 ####[facility] [address] [place], [address] L3400.8500on 09-16-2024 CMV Quant DNA Negative Normal Negative [facility] Comment on above: Order Comment: Test( s) [id number]-Mxgwurgvin (FK506), Bloodwas developed and its performance characteristicsdetermined by [facility]. It has not been cleared or approvedby the Food and Drug Administration. Result Comment: No C MV DNA detected.The quantitative range of this assay is 200 to 1 millionIU/mL. Performed By: #### L 501.2300, L501.5101, L501.4700, L100.0100, L3380.1000, L500.4050, L501.5200, L3400.8500 ####[facility] [address] [place], [place], [address] CMV Quant DNA TNP Normal . [facility] Comment on above: Order Comment: Test( s) [id number] (FK506), Bloodwas developed and its performance characteristicsdetermined by [facility]. It has not been cleared or approvedby the Food and Drug Administration. Result Comment: Resu lt Units: log10 IU/mLUnable to calculate result since non-numeric resultobtained for component test. Performed By: #### L 501.2300, L501.5101, L501.4700, L100.0100, L3380.1000, L500.4050, L501.5200, L3400.8500 ####[facility] [address] [place], [address] L501.5101on 09-16-2024 GGTP 51 IU/L Normal 0-65 [facility] Comment on above: Order Comment: Test( s) [id number]-Dttynsxytv (FK506), Bloodwas developed and its performance characteristicsdetermined by [facility]. It has not been cleared or approvedby the Food and Drug Administration. Result Comment: Perf ormed at: [address] [id number] Director: Sergio Machado MD, Phone: [phone] at: [address] [id number] Director: Red Graham PhD, Phone: [phone] Performed By: #### L 501.2300, L501.5101, L501.4700, L100.0100, L3380.1000, L500.4050, L501.5200, L3400.8500 ####[facility] [address] [place], [address] Tacrolimus (Prograf)on 09-16 Tacrolimus (Bld) [Mass/Vol] 5.7 ng/mL Normal 5.0-20.0 [facility] Comment on above: Order Comment: Test( s) [id number] (FK506), Bloodwas developed and its performance characteristicsdetermined by [employer]. It has not been cleared or approvedby [...] L501.5101, L501.4700, L100.0100, L3380.1000, L500.4050, L501.5200, L3400.8500 ####[facility] [id number] [place], [place], [address] [id number] 09-15-2024 [facility]. COMMENT Normal . [facility] Comment on above: Order Comment: [id number] 4Q FEVER ANITBODY - SERUM - RMT Result Comment: Test Ordered: [id number] Q Fever Antibodies, IgGQ Fever Phase I 1:128 [H ] BN Reference Range: Neg:<1:16Q Fever Phase II Negative BN Reference Range: Neg:<1:16Note: Four-fold increases between paired sera arerecommended to demonstrate recent infection.Performed at: [address] [id number] Director: Sergio Machado MD, Phone: [phone] at: [address] [id number] Director: Red Graham PhD, Phone: [phone] Performed By: #### L 3410.9992 ####[facility] [address] [place], [address] Bilirubin, Directon 09-13-19 Bilirubin.direct [Mass/Vol] 0.14 mg/dL Normal 0.00-0.30 [facility] Comment on above: Performed By: #### L 501.2300, L501.5101, L501.4700, L100.0100, L3380.1000, L500.4050, L501.5200, L3400.8500 ####[facility] [address] [place], [address] CBC W/Diff, Automatedon 08-30 Anisocytosis Ql (Bld) A Normal [facility] Comment on above: Performed By: #### L 501.2300, L501.5101, L501.4700, L100.0100, L3380.1000, L500.4050, L501.5200, L3400.8500 ####[facility] [address] [place], [address] OVALOCYTE 1+ Normal [facility] Comment on above: Performed By: #### L 501.2300, L501.5101, L501.4700, L100.0100, L3380.1000, L500.4050, L501.5200, L3400.8500 ####[facility] [address] [place], [address] Comprehensive Metabolic Prof ilon 09-12-2024 Albumin [Mass/Vol] 4.0 g/dL Normal 3.4-4.8 [facility] Comment on above: Performed By: #### L 501.2300, L501.5101, L501.4700, L100.0100, L3380.1000, L500.4050, L501.5200, L3400.8500 ####[facility] [address] [place], [address] Albumin/Globulin [Mass ratio] 1.4 {ratio} Normal 0.9-2.4 [facility] Comment on above: Performed By: #### L 501.2300, L501.5101, L501.4700, L100.0100, L3380.1000, L500.4050, L501.5200, L3400.8500 ####[facility] [address] [place], [place], [phone] ALK PHOS 148 U/L High 40-129 [facility] Comment on above: Performed By: #### L 501.2300, L501.5101, L501.4700, L100.0100, L3380.1000, L500.4050, L501.5200, L3400.8500 ####[facility] [address] [place], [place], [phone] ALT [Catalytic activity/Vol] 7 U/L Normal <=46 [facility] Comment on above: Performed By: #### L 501.2300, L501.5101, L501.4700, L100.0100, L3380.1000, L500.4050, L501.5200, L3400.8500 ####[facility] [address] [place], [place], [phone] AST [Catalytic activity/Vol] 27 U/L Normal <=37 [facility] Comment on above: Performed By: #### L 501.2300, L501.5101, L501.4700, L100.0100, L3380.1000, L500.4050, L501.5200, L3400.8500 ####[facility] [address] [place], [place], [phone]([phone] Bilirubin [Mass/Vol] 0.26 mg/dL Normal 0.00-1.30 [facility] Comment on above: Performed By: #### L 501.2300, L501.5101, L501.4700, L100.0100, L3380.1000, L500.4050, L501.5200, L3400.8500 ####[facility] [address] [place], [address] BUN/CRE 20.0 RATIO Normal 10-20 [facility] Comment on above: Performed By: #### L 501.2300, L501.5101, L501.4700, L100.0100, L3380.1000, L500.4050, L501.5200, L3400.8500 ####[facility] [address] [place], [address] Calcium [Mass/Vol] 9.4 mg/dL Normal 7.6-11.0 [facility] Comment on above: Performed By: #### L 501.2300, L501.5101, L501.4700, L100.0100, L3380.1000, L500.4050, L501.5200, L3400.8500 ####[facility] [address] [place], [address] Chloride [Moles/Vol] 102 mmol/L Normal 98-108 [facility] Comment on above: Performed By: #### L 501.2300, L501.5101, L501.4700, L100.0100, L3380.1000, L500.4050, L501.5200, L3400.8500 ####[facility] [address] [place], [address] CO2 [Moles/Vol] 24.8 mmol/L Normal 21.0-32.0 [facility] Comment on above: Performed By: #### L 501.2300, L501.5101, L501.4700, L100.0100, L3380.1000, L500.4050, L501.5200, L3400.8500 ####[facility] [address] [place], [address] Creatinine [Mass/Vol] 1.12 mg/dL Normal 0.70-1.20 [facility] Comment on above: Performed By: #### L 501.2300, L501.5101, L501.4700, L100.0100, L3380.1000, L500.4050, L501.5200, L3400.8500 ####[facility] [address] [place], [address] GAP 11 Normal 5-15 [facility] Comment on above: Performed By: #### L 501.2300, L501.5101, L501.4700, L100.0100, L3380.1000, L500.4050, L501.5200, L3400.8500 ####[facility] [address] [place], [address] GFR/1.73 sq M.predicted among non-blacks MDRD (S/P/Bld) [Vol rate/Area] 75 mL/min/{1.73_m2} Normal >60 [facility] Comment on above: Result Comment: mL/m in/1.73m2 CKD-EPI Creatinine Equation (2020) Performed By: #### L 501.2300, L501.5101, L501.4700, L100.0100, L3380.1000, L500.4050, L501.5200, L3400.8500 ####[facility] [address] [place], [address] Globulin (S) [Mass/Vol] 2.8 g/dL Normal 2.2-4.2 [facility] Comment on above: Performed By: #### L 501.2300, L501.5101, L501.4700, L100.0100, L3380.1000, L500.4050, L501.5200, L3400.8500 ####[facility] [address] [place], [address] Glucose [Mass/Vol] 98 mg/dL Normal 70-99 [facility] Comment on above: Performed By: #### L 501.2300, L501.5101, L501.4700, L100.0100, L3380.1000, L500.4050, L501.5200, L3400.8500 ####[facility] [address] [place], [address] Potassium [Moles/Vol] 4.5 mmol/L Normal 3.3-5.1 [facility] Comment on above: Performed By: #### L 501.2300, L501.5101, L501.4700, L100.0100, L3380.1000, L500.4050, L501.5200, L3400.8500 ####[facility] [address] [place], [address] Sodium [Moles/Vol] 138 mmol/L Normal 133-145 [facility] Comment on above: Performed By: #### L 501.2300, L501.5101, L501.4700, L100.0100, L3380.1000, L500.4050, L501.5200, L3400.8500 ####[facility] [address] [place], [address] T PROT 6.8 g/dL Normal 5.9-8.4 [facility] Comment on above: Performed By: #### L 501.2300, L501.5101, L501.4700, L100.0100, L3380.1000, L500.4050, L501.5200, L3400.8500 ####[facility] [address] [place], [address] Urea nitrogen [Mass/Vol] 22 mg/dL High 4-19 [facility] Comment on above: Performed By: #### L 501.2300, L501.5101, L501.4700, L100.0100, L3380.1000, L500.4050, L501.5200, L3400.8500 ####[facility] [address] [place], [address] Laboratory - Hematology and Cell countsOrdered By: Babs Marley on 09-12-2024 Anisocytosis Ql (Bld) A [facility] Magnesiumon 09-12-2024 Magnesium [Mass/Vol] 1.6 mg/dL Normal 1.5-2.2 [facility] Comment on above: Performed By: #### L 501.2300, L501.5101, L501.4700, L100.0100, L3380.1000, L500.4050, L501.5200, L3400.8500 ####[facility] [address] [place], [place], [address] No Panel InformationOrdered By: Babs Marley on 09-12-2024 A [facility] Ovalocyte detectionOrdered B y: Babs Marley on 09-12-2024 Ovalocytes LM Ql (Bld) 1+ [facility] Phosphoruson 09-12-2024 Phosphate [Mass/Vol] 3.2 mg/dL Normal 2.7-4.5 [facility] Comment on above: Performed By: #### L 501.2300, L501.5101, L501.4700, L100.0100, L3380.1000, L500.4050, L501.5200, L3400.8500 ####[facility] [address] [place], [address] CBC W/Diff, Automatedon 07-0 PATH REV Reviewed Normal [facility] Comment on above: Result Comment: SEE REPORT IN PATIENT'S EMR AMENDED REPORT 09/07/24 1533 PATH REV previously reported as: June danny Performed By: #### L 501.2300, L501.5101, L500.4050, L501.4700, L501.5200, L3380.1000, L100.0100 ####[facility] [address] [place], [address] L3400.8500on 09-07-2024 CMV Quant DNA Negative Normal Negative [facility] Comment on above: Order Comment: Test( s) [id number] (FK506), Bloodwas developed and its performance characteristicsdetermined by [facility]. It has not been cleared or approvedby the Food and Drug Administration. Result Comment: No C MV DNA detected.The quantitative range of this assay is 200 to 1 millionIU/mL. Performed By: #### L 100.0100, L3400.8500, L501.2300, L500.4050, L501.5200, L501.4700, L3380.1000, L501.5101 ####[facility] [address] [place], [address] CMV Quant DNA TNP Normal . [facility] Comment on above: Order Comment: Test( s) [id number]-Jjuwsqtkki (FK506), Bloodwas developed and its performance characteristicsdetermined by [facility]. It has not been cleared or approvedby the Food and Drug Administration. Result Comment: Resu lt Units: log10 IU/mLUnable to calculate result since non-numeric resultobtained for component test. Performed By: #### L 100.0100, L3400.8500, L501.2300, L500.4050, L501.5200, L501.4700, L3380.1000, L501.5101 ####[facility] [address] [place], [address] L501.5101on 09-07-2024 GGTP 69 IU/L Abnormal 0-65 [facility] Comment on above: Order Comment: Test( s) [id number]-Upxeavoetc (FK506), Bloodwas developed and its performance characteristicsdetermined by [facility]. It has not been cleared or approvedby the Food and Drug Administration. Result Comment: Perf ormed at: [facility] [address] [id number] Director: Sergio Machado MD, Phone: [phone] at: [facility] [address] [id number] Director: Red Graham PhD, Phone: [phone] Performed By: #### L 100.0100, L3400.8500, L501.2300, L500.4050, L501.5200, L501.4700, L3380.1000, L501.5101 ####[facility] [address] [place], [address] Tacrolimus (Prograf)on 09-07 Tacrolimus (Bld) [Mass/Vol] 8.3 ng/mL Normal 5.0-20.0 [facility] Comment on above: Order Comment: Test( s) [id number]-Hitnudvhum (FK506), Bloodwas developed and its performance characteristicsdetermined by [facility]. It has not been cleared or approvedby [...] L3400.8500, L501.2300, L500.4050, L501.5200, L501.4700, L3380.1000, L501.5101 ####[facility] [address] [place], [place], [id number] Absolute lymphocyte counton 09-05-2024 Lymphocytes Auto (Unsp spec) [#/Vol] 0.71 10*3/uL Low 0.83-4.51 [facility] Absolute neutrophil counton 09-05-2024 Neutrophils (Bld) [#/Vol] 2.2 10*3/uL 2.0-7.7 [facility] Anion gap in Serum or Plasma on 09-05-2024 Anion gap [Moles/Vol] 11 mmol/L 5-15 [facility] Automated lymphocyte count a s percentage of total leukocyteson 09-05-2024 Lymphocytes/100 WBC Auto (Unsp spec) 19.1 % 19- [facility] BUN/creatinine ratioon 09-05 Urea nitrogen/Creatinine [Mass ratio] 19.8 mg/mg 10- [facility] Basophil percentageon 2024 Basophils/100 WBC (Bld) 1.3 % High 0-1 [facility] Bilirubin directon 5 Bilirubin.direct [Mass/Vol] 0.11 mg/dL 0.00-0.30 [facility] Bilirubin, Directon 09-06-19 25 Bilirubin.direct [Mass/Vol] 0.11 mg/dL Normal 0.00-0.30 [facility] Comment on above: Performed By: #### L 100.0100, L3400.8500, L501.2300, L500.4050, L501.5200, L501.4700, L3380.1000, L501.5101 ####[facility] [address] [place], [place], [id number] Bilirubin, totalon 5 Bilirubin [Mass/Vol] 0.21 mg/dL 0.00-1.30 [facility] CBC W/Diff, Automatedon Absolute Lymph 0.71 X10 3/uL Low 0.83-4.51 [facility] Comment on above: Performed By: #### L 100.0100, L3400.8500, L501.2300, L500.4050, L501.5200, L501.4700, L3380.1000, L501.5101 ####[facility] [address] [place], [address] Absolute Neut 2.2 X10 3/uL Normal 2.0-7.7 [facility] Comment on above: Performed By: #### L 100.0100, L3400.8500, L501.2300, L500.4050, L501.5200, L501.4700, L3380.1000, L501.5101 ####[facility] [address] [place], [address] Basophils/100 WBC (Bld) 1.3 % High 0-1 [facility] Comment on above: Performed By: #### L 100.0100, L3400.8500, L501.2300, L500.4050, L501.5200, L501.4700, L3380.1000, L501.5101 ####[facility] [address] [place], [address] Eosinophils/100 WBC (Bld) 3.2 % Normal 0-5 [facility] Comment on above: Performed By: #### L 100.0100, L3400.8500, L501.2300, L500.4050, L501.5200, L501.4700, L3380.1000, L501.5101 ####[facility] [address] [place], [address] Erythrocyte distribution width (RBC) [Ratio] 15.4 % High 11.6-14.6 [facility] Comment on above: Performed By: #### L 100.0100, L3400.8500, L501.2300, L500.4050, L501.5200, L501.4700, L3380.1000, L501.5101 ####[facility] [address] [place], [address] Hematocrit (Bld) [Volume fraction] 31.4 % Low 40-54 [facility] Comment on above: Performed By: #### L 100.0100, L3400.8500, L501.2300, L500.4050, L501.5200, L501.4700, L3380.1000, L501.5101 ####[facility] [address] [place], [address] Hemoglobin (Bld) [Mass/Vol] 9.9 g/dL Low 13.0-16.5 [facility] Comment on above: Performed By: #### L 100.0100, L3400.8500, L501.2300, L500.4050, L501.5200, L501.4700, L3380.1000, L501.5101 ####[facility] [address] [place], [address] IG% 1.100 High 0.0-0.9 [facility] Comment on above: Result Comment: IG% - Immature Granulocytes (promyelocytes, myelocytes andmetamyelocytes) > 1% indicates that a LEFT SHIFT is Present. Performed By: #### L 100.0100, L3400.8500, L501.2300, L500.4050, L501.5200, L501.4700, L3380.1000, L501.5101 ####[facility] [address] [place], [address] Lymphocytes/100 WBC (Bld) 19.1 % Normal 19-41 [facility] Comment on above: Performed By: #### L 100.0100, L3400.8500, L501.2300, L500.4050, L501.5200, L501.4700, L3380.1000, L501.5101 ####[facility] [address] [place], [address] MCH (RBC) [Entitic mass] 31.8 pg Normal 27.0-32.0 [facility] Comment on above: Performed By: #### L 100.0100, L3400.8500, L501.2300, L500.4050, L501.5200, L501.4700, L3380.1000, L501.5101 ####[facility] [address] [place], [address] MCHC (RBC) [Mass/Vol] 31.5 g/dL Low 32-36 [facility] Comment on above: Performed By: #### L 100.0100, L3400.8500, L501.2300, L500.4050, L501.5200, L501.4700, L3380.1000, L501.5101 ####[facility] [address] [place], [address] MCV (RBC) [Entitic vol] 101.0 fL High 80-94 [facility] Comment on above: Performed By: #### L 100.0100, L3400.8500, L501.2300, L500.4050, L501.5200, L501.4700, L3380.1000, L501.5101 ####[facility] [address] [place], [address] Monocytes/100 WBC (Bld) 17.5 % High 0-10 [facility] Comment on above: Performed By: #### L 100.0100, L3400.8500, L501.2300, L500.4050, L501.5200, L501.4700, L3380.1000, L501.5101 ####[facility] [address] [place], [address] Neutrophils/100 WBC (Bld) 57.8 % Normal 47-70 [facility] Comment on above: Performed By: #### L 100.0100, L3400.8500, L501.2300, L500.4050, L501.5200, L501.4700, L3380.1000, L501.5101 ####[facility] [address] [place], [address] Nucleated RBC (Bld) [#/Vol] 0 10*3/uL Normal 0-5 [facility] Comment on above: Performed By: #### L 100.0100, L3400.8500, L501.2300, L500.4050, L501.5200, L501.4700, L3380.1000, L501.5101 ####[facility] [address] [place], [address] Platelet mean volume (Bld) [Entitic vol] 10.2 fL Normal 6.2-12.0 [facility] Comment on above: Performed By: #### L 100.0100, L3400.8500, L501.2300, L500.4050, L501.5200, L501.4700, L3380.1000, L501.5101 ####[facility] [address] [place], [address] Platelets (Bld) [#/Vol] 495 10*3/uL High 150-450 [facility] Comment on above: Performed By: #### L 100.0100, L3400.8500, L501.2300, L500.4050, L501.5200, L501.4700, L3380.1000, L501.5101 ####[facility] [address] [place], [address] RBC (Bld) [#/Vol] 3.11 10*6/uL Low 4.6-6.2 [facility] Comment on above: Performed By: #### L 100.0100, L3400.8500, L501.2300, L500.4050, L501.5200, L501.4700, L3380.1000, L501.5101 ####[facility] [address] [place], [address] RDW SD 57.1 fl High 35.1-43.9 [facility] Comment on above: Performed By: #### L 100.0100, L3400.8500, L501.2300, L500.4050, L501.5200, L501.4700, L3380.1000, L501.5101 ####[facility] [address] [place], [address] WBC (Bld) [#/Vol] 3.7 10*3/uL Low 4.4-11.0 [facility] Comment on above: Performed By: #### L 100.0100, L3400.8500, L501.2300, L500.4050, L501.5200, L501.4700, L3380.1000, L501.5101 ####[facility] [address] [place], [address] Carbon dioxide, total [Moles /volume] in Central venous bloodon 09-05-2024 CO2 [Moles/Vol] 23.2 mmol/L 21.0-32.0 [facility] Chloride assayon 09-05-2024 Chloride [Moles/Vol] 106 mmol/L 98-108 [facility] Comprehensive Metabolic Prof ilon 09-05-2024 Albumin [Mass/Vol] 3.7 g/dL Normal 3.4-4.8 [facility] Comment on above: Performed By: #### L 100.0100, L3400.8500, L501.2300, L500.4050, L501.5200, L501.4700, L3380.1000, L501.5101 ####[facility] [address] [place], [address] Albumin/Globulin [Mass ratio] 1.3 {ratio} Normal 0.9-2.4 [facility] Comment on above: Performed By: #### L 100.0100, L3400.8500, L501.2300, L500.4050, L501.5200, L501.4700, L3380.1000, L501.5101 ####[facility] [address] [place], [address] ALK PHOS 163 U/L High 40-129 [facility] Comment on above: Performed By: #### L 100.0100, L3400.8500, L501.2300, L500.4050, L501.5200, L501.4700, L3380.1000, L501.5101 ####[facility] [address] [place], [address] ALT [Catalytic activity/Vol] 14 U/L Normal <=46 [facility] Comment on above: Performed By: #### L 100.0100, L3400.8500, L501.2300, L500.4050, L501.5200, L501.4700, L3380.1000, L501.5101 ####[facility] [address] [place], [address] AST [Catalytic activity/Vol] 21 U/L Normal <=37 [facility] Comment on above: Performed By: #### L 100.0100, L3400.8500, L501.2300, L500.4050, L501.5200, L501.4700, L3380.1000, L501.5101 ####[facility] [address] [place], [place], [phone] Bilirubin [Mass/Vol] 0.21 mg/dL Normal 0.00-1.30 [facility] Comment on above: Performed By: #### L 100.0100, L3400.8500, L501.2300, L500.4050, L501.5200, L501.4700, L3380.1000, L501.5101 ####[facility] [address] [place], [place], [phone] BUN/CRE 19.8 RATIO Normal 10-20 [facility] Comment on above: Performed By: #### L 100.0100, L3400.8500, L501.2300, L500.4050, L501.5200, L501.4700, L3380.1000, L501.5101 ####[facility] [address] [place], [address] Calcium [Mass/Vol] 9.2 mg/dL Normal 7.6-11.0 [facility] Comment on above: Performed By: #### L 100.0100, L3400.8500, L501.2300, L500.4050, L501.5200, L501.4700, L3380.1000, L501.5101 ####[facility] [address] [place], [address] Chloride [Moles/Vol] 106 mmol/L Normal 98-108 [facility] Comment on above: Performed By: #### L 100.0100, L3400.8500, L501.2300, L500.4050, L501.5200, L501.4700, L3380.1000, L501.5101 ####[facility] [address] [place], [address] CO2 [Moles/Vol] 23.2 mmol/L Normal 21.0-32.0 [facility] Comment on above: Performed By: #### L 100.0100, L3400.8500, L501.2300, L500.4050, L501.5200, L501.4700, L3380.1000, L501.5101 ####[facility] [address] [place], [address] Creatinine [Mass/Vol] 1.21 mg/dL High 0.70-1.20 [facility] Comment on above: Performed By: #### L 100.0100, L3400.8500, L501.2300, L500.4050, L501.5200, L501.4700, L3380.1000, L501.5101 ####[facility] [address] [place], [address] GAP 11 Normal 5-15 [facility] Comment on above: Performed By: #### L 100.0100, L3400.8500, L501.2300, L500.4050, L501.5200, L501.4700, L3380.1000, L501.5101 ####[facility] [address] [place], [address] GFR/1.73 sq M.predicted among non-blacks MDRD (S/P/Bld) [Vol rate/Area] 69 mL/min/{1.73_m2} Normal >60 [facility] Comment on above: Result Comment: mL/m in/1.73m2 CKD-EPI Creatinine Equation (2020) Performed By: #### L 100.0100, L3400.8500, L501.2300, L500.4050, L501.5200, L501.4700, L3380.1000, L501.5101 ####[facility] [address] [place], [address] Globulin (S) [Mass/Vol] 2.8 g/dL Normal 2.2-4.2 [facility] Comment on above: Performed By: #### L 100.0100, L3400.8500, L501.2300, L500.4050, L501.5200, L501.4700, L3380.1000, L501.5101 ####[facility] [address] [place], [address] Glucose [Mass/Vol] 93 mg/dL Normal 70-99 [facility] Comment on above: Performed By: #### L 100.0100, L3400.8500, L501.2300, L500.4050, L501.5200, L501.4700, L3380.1000, L501.5101 ####[facility] [address] [place], [address] Potassium [Moles/Vol] 4.4 mmol/L Normal 3.3-5.1 [facility] Comment on above: Performed By: #### L 100.0100, L3400.8500, L501.2300, L500.4050, L501.5200, L501.4700, L3380.1000, L501.5101 ####[facility] [address] [place], [address] Sodium [Moles/Vol] 140 mmol/L Normal 133-145 [facility] Comment on above: Performed By: #### L 100.0100, L3400.8500, L501.2300, L500.4050, L501.5200, L501.4700, L3380.1000, L501.5101 ####[facility] [address] [place], [address] T PROT 6.4 g/dL Normal 5.9-8.4 [facility] Comment on above: Performed By: #### L 100.0100, L3400.8500, L501.2300, L500.4050, L501.5200, L501.4700, L3380.1000, L501.5101 ####[facility] [address] [facility] [place], [address] Urea nitrogen [Mass/Vol] 24 mg/dL High 4-19 [facility] Comment on above: Performed By: #### L 100.0100, L3400.8500, L501.2300, L500.4050, L501.5200, L501.4700, L3380.1000, L501.5101 ####[facility] [address] [facility] [place], [address] Cytomegalovirus (CMV) DNA me asurement by PCR (log units/volume)on 09-05-2024 CMV DNA JACKY+probe (P) [Log units/Vol] TNP [facility] Comment on above: Test not performedRe sult Units: log10 IU/mLUnable to calculate result since non-numeric resultobtained for component test. Eosinophil percentageon Eosinophils/100 WBC (Bld) 3.2 % 0-5 [facility] Erythrocyte distribution wid th ratioon 09-05-2024 Erythrocyte distribution width (RBC) [Ratio] 15.4 % High 11.6-14.6 [facility] Erythrocyte distribution wid th standard deviationon 09-05-2024 Erythrocyte distribution width (RBC) [Ratio] 57.1 fl High 35.1-43.9 [facility] Gamma glutamyl transferase ( GGT) measurementon 09-05-2024 Amylase [Catalytic activity/Vol] 69 U/L High 0-65 [facility] Comment on above: Performed at: BN - [address] [id number] Director: Sergio Machado MD, Phone: [phone] at: CB - [facility] [address], [place] [id number] Director: Red Graham PhD, Phone: [phone] Glomerular filtration rate ( GFR) estimation/1.73 sq m using serum, plasma, or whole bon 09-05-2024 GFR/1.73 sq M.predicted among non-blacks MDRD (S/P/Bld) [Vol rate/Area] 69 mL/min/{1.73_m2} >60 [facility] Comment on above: mL/min/1.73m2 CKD-EP I Creatinine Equation (2020) Hematocrit Auto (Bld) [Volum e fraction]on 09-05-2024 Hematocrit (Bld) [Volume fraction] 31.4 % Low 40-54 [facility] Hemoglobin measurementon Hemoglobin (Bld) [Mass/Vol] 9.9 g/dL Low 13.0-16.5 [facility] Immature granulocytes/100 WB C Auto (Bld)on 09-05-2024 Immature granulocytes/100 WBC (Bld) 1.100 % High 0.0-0.9 [facility] Comment on above: IG% - Immature Granu locytes (promyelocytes, myelocytes and metamyelocytes) > 1% indicates that a LEFT SHIFT is Present. Laboratory - Chemistry and C hemistry - challengeon 09-05-2024 AST [Catalytic activity/Vol] 21 U/L <38 [facility] MCV (mean corpuscular volume ) determinationon 09-05-2024 MCV (RBC) [Entitic vol] 101.0 fL High 80-94 [facility] Magnesiumon 09-05-2024 Magnesium [Mass/Vol] 1.8 mg/dL Normal 1.5-2.2 [facility] Comment on above: Performed By: #### L 100.0100, L3400.8500, L501.2300, L500.4050, L501.5200, L501.4700, L3380.1000, L501.5101 ####[facility] [address] [place], [place], [id number] Magnesium measurement (mass/ volume)on 09-05-2024 Magnesium (Unsp spec) [Mass/Vol] 1.8 mg/dL 1.5-2.2 [facility] Mean corpuscular hemoglobin (MCH) determinationon 09-05-2024 MCH (RBC) [Entitic mass] 31.8 pg 27.0-32.0 [facility] Mean corpuscular hemoglobin concentration (MCHC) determinationon 09-05-2024 MCHC (RBC) [Mass/Vol] 31.5 g/dL Low 32-36 [facility] Mean platelet volume determi nationon 09-05-2024 Platelet mean volume (Bld) [Entitic vol] 10.2 fL 6.2-12.0 [facility] Monocyte percentageon 2024 Monocytes/100 WBC (Bld) 17.5 % High 0-10 [facility] Neutrophil percentageon 07- Neutrophils/100 WBC (Bld) 57.8 % 47-70 [facility] Nucleated red blood cell per centageon 09-05-2024 Nucleated RBC/100 WBC (Bld) [Ratio] 0 % 0-5 [facility] Phosphoruson 09-05-2024 Phosphate [Mass/Vol] 3.3 mg/dL Normal 2.7-4.5 [facility] Comment on above: Performed By: #### L 100.0100, L3400.8500, L501.2300, L500.4050, L501.5200, L501.4700, L3380.1000, L501.5101 ####[facility] [address] [place], [place], [id number] Platelet counton 09-05-2024 Platelets (Bld) [#/Vol] 495 10*3/uL High 150-450 [facility] Potassium measurement (mass/ volume)on 09-05-2024 Potassium (Unsp spec) [Mass/Vol] 4.4 mmol/L 3.3-5.1 [facility] RBC Auto (Bld) [#/Vol]on RBC (Bld) [#/Vol] 3.11 10*6/uL Low 4.6-6.2 [facility] Serum creatinine measurement (mass/volume)on 09-05-2024 Creatinine [Mass/Vol] 1.21 mg/dL High 0.70-1.20 [facility] Serum globulin measurementon 09-05-2024 Globulin (S) [Mass/Vol] 2.8 g/dL 2.2-4.2 [facility] Serum glucose measurement (m ass/volume)on 09-05-2024 Glucose [Mass/Vol] 93 mg/dL 70-99 [facility] Serum or plasma alanine craig otransferase (ALT) measurementon 09-05-2024 ALT [Catalytic activity/Vol] 14 U/L <47 [facility] Serum or plasma albumin megha urement (mass/volume)on 09-05-2024 Albumin [Mass/Vol] 3.7 g/dL 3.4-4.8 [facility] Serum or plasma albumin/glob ulin mass ratioon 09-05-2024 Albumin/Globulin [Mass ratio] 1.3 {ratio} 0.9-2.4 [facility] Serum or plasma alkaline sal sphatase measurementon 09-05-2024 ALP [Catalytic activity/Vol] 163 U/L High 40-129 [facility] Serum or plasma calcium megha urement (mass/volume)on 09-05-2024 Calcium [Mass/Vol] 9.2 mg/dL 7.6-11.0 [facility] Serum or plasma urea nitroge n measurement (mass/volume)on 09-05-2024 Urea nitrogen [Mass/Vol] 24 mg/dL High 4-19 [facility] Sodium levelon 09-05-2024 Sodium [Moles/Vol] 140 mmol/L 133-145 [facility] Total proteinon 09-05-2024 Protein [Mass/Vol] 6.4 g/dL 5.9-8.4 [facility] White blood cell (WBC) count on 09-05-2024 WBC (Bld) [#/Vol] 3.7 10*3/uL Low 4.4-11.0 [facility] L501.5101on 09-01-2024 GGTP 102 IU/L Abnormal 0-65 [facility] Comment on above: Order Comment: Test( s) [id number] (FK506), Bloodwas developed and its performance characteristicsdetermined by [facility]. It has not been cleared or approvedby the Food and Drug Administration. Result Comment: Perf ormed at: BN - [facility] [id number] Director: Sergio Machado MD, Phone: [phone] at: [address] [id number] Director: Red Graham PhD, Phone: [phone] Performed By: #### L 500.4050, L100.0100, L501.2300, L501.5200, L501.4700, L3380.1000, L501.5101 ####[facility] [address] [place], [place], [address] Tacrolimus (Prograf)on 09-01 Tacrolimus (Bld) [Mass/Vol] 6.8 ng/mL Normal 5.0-20.0 [facility] Comment on above: Order Comment: Test( s) [id number] (FK506), Bloodwas developed and its performance characteristicsdetermined by [employer]. It has not been cleared or approvedby [...] 500.4050, L100.0100, L501.2300, L501.5200, L501.4700, L3380.1000, L501.5101 ####[facility] [address] [place], [place], [id number] Absolute lymphocyte counton 08-29-2024 Lymphocytes Auto (Unsp spec) [#/Vol] 0.90 10*3/uL 0.83-4.51 [facility] Absolute neutrophil counton 08-29-2024 Neutrophils (Bld) [#/Vol] 2.3 10*3/uL 2.0-7.7 [facility] Anion gap in Serum or Plasma on 08-29-2024 Anion gap [Moles/Vol] 10 mmol/L 5-15 [facility] Automated lymphocyte count a s percentage of total leukocyteson 08-29-2024 Lymphocytes/100 WBC Auto (Unsp spec) 23.0 % 19-41 [facility] BUN/creatinine ratioon 08-29 Urea nitrogen/Creatinine [Mass ratio] 23.7 mg/mg High 10-20 [facility] Basophil percentageon 2024 Basophils/100 WBC (Bld) 1.8 % High 0-1 [facility] Bilirubin directon 5 Bilirubin.direct [Mass/Vol] 0.16 mg/dL 0.00-0.30 [facility] Bilirubin, Directon 08-30-19 25 Bilirubin.direct [Mass/Vol] 0.16 mg/dL Normal 0.00-0.30 [facility] Comment on above: Performed By: #### L 500.4050, L100.0100, L501.2300, L501.5200, L501.4700, L3380.1000, L501.5101 ####[facility] [address] [place], [address] Bilirubin, totalon 5 Bilirubin [Mass/Vol] 0.31 mg/dL 0.00-1.30 [facility] CBC W/Diff, Automatedon 08-02 Absolute Lymph 0.90 X10 3/uL Normal 0.83-4.51 [facility] Comment on above: Performed By: #### L 500.4050, L100.0100, L501.2300, L501.5200, L501.4700, L3380.1000, L501.5101 ####[facility] [address] [place], [address] Absolute Neut 2.3 X10 3/uL Normal 2.0-7.7 [facility] Comment on above: Performed By: #### L 500.4050, L100.0100, L501.2300, L501.5200, L501.4700, L3380.1000, L501.5101 ####[facility] [address] [place], [address] Basophils/100 WBC (Bld) 1.8 % High 0-1 [facility] Comment on above: Performed By: #### L 500.4050, L100.0100, L501.2300, L501.5200, L501.4700, L3380.1000, L501.5101 ####[facility] [address] [place], [address] Eosinophils/100 WBC (Bld) 5.1 % High 0-5 [facility] Comment on above: Performed By: #### L 500.4050, L100.0100, L501.2300, L501.5200, L501.4700, L3380.1000, L501.5101 ####[facility] [address] [place], [address] Erythrocyte distribution width (RBC) [Ratio] 15.8 % High 11.6-14.6 [facility] Comment on above: Performed By: #### L 500.4050, L100.0100, L501.2300, L501.5200, L501.4700, L3380.1000, L501.5101 ####[facility] [address] [place], [address] Hematocrit (Bld) [Volume fraction] 30.7 % Low 40-54 [facility] Comment on above: Performed By: #### L 500.4050, L100.0100, L501.2300, L501.5200, L501.4700, L3380.1000, L501.5101 ####[facility] [address] [place], [address] Hemoglobin (Bld) [Mass/Vol] 9.5 g/dL Low 13.0-16.5 [facility] Comment on above: Performed By: #### L 500.4050, L100.0100, L501.2300, L501.5200, L501.4700, L3380.1000, L501.5101 ####[facility] [address] [place], [address] IG% 1.300 High 0.0-0.9 [facility] Comment on above: Result Comment: IG% - Immature Granulocytes (promyelocytes, myelocytes andmetamyelocytes) > 1% indicates that a LEFT SHIFT is Present. Performed By: #### L 500.4050, L100.0100, L501.2300, L501.5200, L501.4700, L3380.1000, L501.5101 ####[facility] [address] [place], [address] Lymphocytes/100 WBC (Bld) 23.0 % Normal 19-41 [facility] Comment on above: Performed By: #### L 500.4050, L100.0100, L501.2300, L501.5200, L501.4700, L3380.1000, L501.5101 ####[facility] [address] [place], [address] MCH (RBC) [Entitic mass] 31.0 pg Normal 27.0-32.0 [facility] Comment on above: Performed By: #### L 500.4050, L100.0100, L501.2300, L501.5200, L501.4700, L3380.1000, L501.5101 ####[facility] [address] [place], [address] MCHC (RBC) [Mass/Vol] 30.9 g/dL Low 32-36 [facility] Comment on above: Performed By: #### L 500.4050, L100.0100, L501.2300, L501.5200, L501.4700, L3380.1000, L501.5101 ####[facility] [address] [place], [address] MCV (RBC) [Entitic vol] 100.3 fL High 80-94 [facility] Comment on above: Performed By: #### L 500.4050, L100.0100, L501.2300, L501.5200, L501.4700, L3380.1000, L501.5101 ####[facility] [address] [place], [address] Monocytes/100 WBC (Bld) 9.2 % Normal 0-10 [facility] Comment on above: Performed By: #### L 500.4050, L100.0100, L501.2300, L501.5200, L501.4700, L3380.1000, L501.5101 ####[facility] [address] [place], [address] Neutrophils/100 WBC (Bld) 59.6 % Normal 47-70 [facility] Comment on above: Performed By: #### L 500.4050, L100.0100, L501.2300, L501.5200, L501.4700, L3380.1000, L501.5101 ####[facility] [address] [place], [address] Nucleated RBC (Bld) [#/Vol] 0 10*3/uL Normal 0-5 [facility] Comment on above: Performed By: #### L 500.4050, L100.0100, L501.2300, L501.5200, L501.4700, L3380.1000, L501.5101 ####[facility] [address] [place], [address] Platelet mean volume (Bld) [Entitic vol] 10.5 fL Normal 6.2-12.0 [facility] Comment on above: Performed By: #### L 500.4050, L100.0100, L501.2300, L501.5200, L501.4700, L3380.1000, L501.5101 ####[facility] [address] [place], [address] Platelets (Bld) [#/Vol] 424 10*3/uL Normal 150-450 [facility] Comment on above: Performed By: #### L 500.4050, L100.0100, L501.2300, L501.5200, L501.4700, L3380.1000, L501.5101 ####[facility] [address] [place], [address] RBC (Bld) [#/Vol] 3.06 10*6/uL Low 4.6-6.2 [facility] Comment on above: Performed By: #### L 500.4050, L100.0100, L501.2300, L501.5200, L501.4700, L3380.1000, L501.5101 ####[facility] [address] [place], [address] RDW SD 58.3 fl High 35.1-43.9 [facility] Comment on above: Performed By: #### L 500.4050, L100.0100, L501.2300, L501.5200, L501.4700, L3380.1000, L501.5101 ####[facility] [address] [place], [address] WBC (Bld) [#/Vol] 3.9 10*3/uL Low 4.4-11.0 [facility] Comment on above: Performed By: #### L 500.4050, L100.0100, L501.2300, L501.5200, L501.4700, L3380.1000, L501.5101 ####[facility] [address] [place], [address] Carbon dioxide, total [Moles /volume] in Central venous bloodon 08-29-2024 CO2 [Moles/Vol] 26.7 mmol/L 21.0-32.0 [facility] Chloride assayon 08-29-2024 Chloride [Moles/Vol] 103 mmol/L 98-108 [facility] Comprehensive Metabolic Prof ilon 08-29-2024 Albumin [Mass/Vol] 3.8 g/dL Normal 3.4-4.8 [facility] Comment on above: Performed By: #### L 500.4050, L100.0100, L501.2300, L501.5200, L501.4700, L3380.1000, L501.5101 ####[facility] [address] [place], [address] Albumin/Globulin [Mass ratio] 1.5 {ratio} Normal 0.9-2.4 [facility] Comment on above: Performed By: #### L 500.4050, L100.0100, L501.2300, L501.5200, L501.4700, L3380.1000, L501.5101 ####[facility] [address] [place], [address] ALK PHOS 218 U/L High 40-129 [facility] Comment on above: Performed By: #### L 500.4050, L100.0100, L501.2300, L501.5200, L501.4700, L3380.1000, L501.5101 ####[facility] [address] [place], [address] ALT [Catalytic activity/Vol] 19 U/L Normal <=46 [facility] Comment on above: Performed By: #### L 500.4050, L100.0100, L501.2300, L501.5200, L501.4700, L3380.1000, L501.5101 ####[facility] [address] [place], [address] AST [Catalytic activity/Vol] 21 U/L Normal <=37 [facility] Comment on above: Performed By: #### L 500.4050, L100.0100, L501.2300, L501.5200, L501.4700, L3380.1000, L501.5101 ####[facility] [address] [place], [address] Bilirubin [Mass/Vol] 0.31 mg/dL Normal 0.00-1.30 [facility] Comment on above: Performed By: #### L 500.4050, L100.0100, L501.2300, L501.5200, L501.4700, L3380.1000, L501.5101 ####[facility] [address] [place], [address] BUN/CRE 23.7 RATIO High 10-20 [facility] Comment on above: Performed By: #### L 500.4050, L100.0100, L501.2300, L501.5200, L501.4700, L3380.1000, L501.5101 ####[facility] [address] [place], [address] Calcium [Mass/Vol] 9.4 mg/dL Normal 7.6-11.0 [facility] Comment on above: Performed By: #### L 500.4050, L100.0100, L501.2300, L501.5200, L501.4700, L3380.1000, L501.5101 ####[facility] [address] [place], [address] Chloride [Moles/Vol] 103 mmol/L Normal 98-108 [facility] Comment on above: Performed By: #### L 500.4050, L100.0100, L501.2300, L501.5200, L501.4700, L3380.1000, L501.5101 ####[facility] [address] [place], [address] CO2 [Moles/Vol] 26.7 mmol/L Normal 21.0-32.0 [facility] Comment on above: Performed By: #### L 500.4050, L100.0100, L501.2300, L501.5200, L501.4700, L3380.1000, L501.5101 ####[facility] [address] [place], [address] Creatinine [Mass/Vol] 0.94 mg/dL Normal 0.70-1.20 [facility] Comment on above: Performed By: #### L 500.4050, L100.0100, L501.2300, L501.5200, L501.4700, L3380.1000, L501.5101 ####[facility] [address] [place], [address] GAP 10 Normal 5-15 [facility] Comment on above: Performed By: #### L 500.4050, L100.0100, L501.2300, L501.5200, L501.4700, L3380.1000, L501.5101 ####[facility] [address] [place], [address] GFR/1.73 sq M.predicted among non-blacks MDRD (S/P/Bld) [Vol rate/Area] 93 mL/min/{1.73_m2} Normal >60 [facility] Comment on above: Result Comment: mL/m in/1.73m2 CKD-EPI Creatinine Equation (2020) Performed By: #### L 500.4050, L100.0100, L501.2300, L501.5200, L501.4700, L3380.1000, L501.5101 ####[facility] [address] [place], [address] Globulin (S) [Mass/Vol] 2.5 g/dL Normal 2.2-4.2 [facility] Comment on above: Performed By: #### L 500.4050, L100.0100, L501.2300, L501.5200, L501.4700, L3380.1000, L501.5101 ####[facility] [address] [place], [address] Glucose [Mass/Vol] 90 mg/dL Normal 70-99 [facility] Comment on above: Performed By: #### L 500.4050, L100.0100, L501.2300, L501.5200, L501.4700, L3380.1000, L501.5101 ####[facility] [address] [place], [address] Potassium [Moles/Vol] 4.5 mmol/L Normal 3.3-5.1 [facility] Comment on above: Performed By: #### L 500.4050, L100.0100, L501.2300, L501.5200, L501.4700, L3380.1000, L501.5101 ####[facility] [address] [place], [address] Sodium [Moles/Vol] 139 mmol/L Normal 133-145 [facility] Comment on above: Performed By: #### L 500.4050, L100.0100, L501.2300, L501.5200, L501.4700, L3380.1000, L501.5101 ####[facility] [address] [place], [address] T PROT 6.3 g/dL Normal 5.9-8.4 [facility] Comment on above: Performed By: #### L 500.4050, L100.0100, L501.2300, L501.5200, L501.4700, L3380.1000, L501.5101 ####[facility] [address] [place], [address] Urea nitrogen [Mass/Vol] 22 mg/dL High 4-19 [facility] Comment on above: Performed By: #### L 500.4050, L100.0100, L501.2300, L501.5200, L501.4700, L3380.1000, L501.5101 ####[facility] [address] [place], [address] Eosinophil percentageon 06-3 0-2024 Eosinophils/100 WBC (Bld) 5.1 % High 0-5 [facility] Erythrocyte distribution wid th ratioon 08-29-2024 Erythrocyte distribution width (RBC) [Ratio] 15.8 % High 11.6-14.6 [facility] Erythrocyte distribution wid th standard deviationon 08-29-2024 Erythrocyte distribution width (RBC) [Ratio] 58.3 fl High 35.1-43.9 [facility] Gamma glutamyl transferase ( GGT) measurementon 08-29-2024 Amylase [Catalytic activity/Vol] 102 U/L High 0-65 [facility] Comment on above: Performed at: - [address] [id number] Director: Sergio Machado MD, Phone: [phone] at: - [facility] [address] [id number] Director: Red Graham PhD, Phone: [phone] Glomerular filtration rate ( GFR) estimation/1.73 sq m using serum, plasma, or whole bon 08-29-2024 GFR/1.73 sq M.predicted among non-blacks MDRD (S/P/Bld) [Vol rate/Area] 93 mL/min/{1.73_m2} >60 [facility] Comment on above: mL/min/1.73m2 CKD-EP I Creatinine Equation (2020) Hematocrit Auto (Bld) [Volum e fraction]on 08-29-2024 Hematocrit (Bld) [Volume fraction] 30.7 % Low 40-54 [facility] Hemoglobin measurementon Hemoglobin (Bld) [Mass/Vol] 9.5 g/dL Low 13.0-16.5 [facility] Immature granulocytes/100 WB C Auto (Bld)on 08-29-2024 Immature granulocytes/100 WBC (Bld) 1.300 % High 0.0-0.9 [facility] Comment on above: IG% - Immature Granu locytes (promyelocytes, myelocytes and metamyelocytes) > 1% indicates that a LEFT SHIFT is Present. [id number] 08-29-2024 [facility] Misc. Normal . [facility] Comment on above: Order Comment: [id number] 0HEB DNA TIGER POUR OFF FROZEN Result Comment: TEST RESULTS LIMITSHBV Real-Time PCR, Quant HBV IU/mL HBV DNA not detected IU/mL log10 HBV IU/mL Unable to calculate result since non-numeric resultobtained for component test. Test Information: The reportable range for this assay is 10 IU/mL to 1billion IU/mL TESTING PERFORMED AT [facility]. ORIGINAL REPORT ON FILE IN LAB CONTAINS ADDITIONAL TEST SITE INFORMATION. Performed By: #### L 3890.6102, L7000.7000, L501.5200, L501.4700, L100.0100, L501.2300, L3890.4000, L3410.9992, L500.4050 ####[facility] [address] [place], [place], [address] Laboratory - Chemistry and C hemistry - challengeon 08-29-2024 AST [Catalytic activity/Vol] 21 U/L <38 [facility] MCV (mean corpuscular volume ) determinationon 08-29-2024 MCV (RBC) [Entitic vol] 100.3 fL High 80-94 [facility] Magnesiumon 08-29-2024 Magnesium [Mass/Vol] 1.6 mg/dL Normal 1.5-2.2 [facility] Comment on above: Performed By: #### L 500.4050, L100.0100, L501.2300, L501.5200, L501.4700, L3380.1000, L501.5101 ####[facility] [address] [place], [place], [address] Magnesium measurement (mass/ volume)on 08-29-2024 Magnesium (Unsp spec) [Mass/Vol] 1.6 mg/dL 1.5-2.2 [facility] Mean corpuscular hemoglobin (MCH) determinationon 08-29-2024 MCH (RBC) [Entitic mass] 31.0 pg 27.0-32.0 [facility] Mean corpuscular hemoglobin concentration (MCHC) determinationon 08-29-2024 MCHC (RBC) [Mass/Vol] 30.9 g/dL Low 32-36 [facility] Mean platelet volume determi nationon 08-29-2024 Platelet mean volume (Bld) [Entitic vol] 10.5 fL 6.2-12.0 [facility] Monocyte percentageon 2024 Monocytes/100 WBC (Bld) 9.2 % 0-10 [facility] Neutrophil percentageon 08-02 0 Neutrophils/100 WBC (Bld) 59.6 % 47-70 [facility] Nucleated red blood cell per centageon 08-29-2024 Nucleated RBC/100 WBC (Bld) [Ratio] 0 % 0-5 [facility] Phosphoruson 08-29-2024 Phosphate [Mass/Vol] 3.5 mg/dL Normal 2.7-4.5 [facility] Comment on above: Performed By: #### L 500.4050, L100.0100, L501.2300, L501.5200, L501.4700, L3380.1000, L501.5101 ####[facility] [address] [place], [address] Platelet counton 08-29-2024 Platelets (Bld) [#/Vol] 424 10*3/uL 150-450 [facility] Potassium measurement (mass/ volume)on 08-29-2024 Potassium (Unsp spec) [Mass/Vol] 4.5 mmol/L 3.3-5.1 [facility] RBC Auto (Bld) [#/Vol]on RBC (Bld) [#/Vol] 3.06 10*6/uL Low 4.6-6.2 [facility] Serum creatinine measurement (mass/volume)on 08-29-2024 Creatinine [Mass/Vol] 0.94 mg/dL 0.70-1.20 [facility] Serum globulin measurementon 08-29-2024 Globulin (S) [Mass/Vol] 2.5 g/dL 2.2-4.2 [facility] Serum glucose measurement (m ass/volume)on 08-29-2024 Glucose [Mass/Vol] 90 mg/dL 70-99 [facility] Serum or plasma alanine craig otransferase (ALT) measurementon 08-29-2024 ALT [Catalytic activity/Vol] 19 U/L <47 [facility] Serum or plasma albumin megha urement (mass/volume)on 08-29-2024 Albumin [Mass/Vol] 3.8 g/dL 3.4-4.8 [facility] Serum or plasma albumin/glob ulin mass ratioon 08-29-2024 Albumin/Globulin [Mass ratio] 1.5 {ratio} 0.9-2.4 [facility] Serum or plasma alkaline sal sphatase measurementon 08-29-2024 ALP [Catalytic activity/Vol] 218 U/L High 40-129 [facility] Serum or plasma calcium megha urement (mass/volume)on 08-29-2024 Calcium [Mass/Vol] 9.4 mg/dL 7.6-11.0 [facility] Serum or plasma urea nitroge n measurement (mass/volume)on 08-29-2024 Urea nitrogen [Mass/Vol] 22 mg/dL High 4-19 [facility] Sodium levelon 08-29-2024 Sodium [Moles/Vol] 139 mmol/L 133-145 [facility] Total proteinon 08-29-2024 Protein [Mass/Vol] 6.3 g/dL 5.9-8.4 [facility] White blood cell (WBC) count on 08-29-2024 WBC (Bld) [#/Vol] 3.9 10*3/uL Low 4.4-11.0 [facility] L501.5101on 08-28-2024 GGTP 154 IU/L Abnormal 0-65 [facility] Comment on above: Order Comment: Test( s) 010612-Bcrgcyhqmi (FK506), Bloodwas developed and its performance characteristicsdetermined by [facility]. It has not been cleared or approvedby the Food and Drug Administration. Result Comment: Perf ormed at: [facility] [address] [id number] Director: Sergio Machado MD, Phone: [phone] at: [facility] [address] [id number] Director: Red Graham PhD, Phone: [phone] Performed By: #### L 501.2300, L501.5200, L501.4700, L100.0100, L501.5101, L3380.1000, L500.4050 ####[facility] [address] [place], [address] Tacrolimus (Prograf)on 08-28 Tacrolimus (Bld) [Mass/Vol] 9.0 ng/mL Normal 5.0-20.0 [facility] Comment on above: Order Comment: Test( s) 000083-Cnpkefdrep (FK506), Bloodwas developed and its performance characteristicsdetermined by [facility]. It has not been cleared or approvedby [...] 501.2300, L501.5200, L501.4700, L100.0100, L501.5101, L3380.1000, L500.4050 ####[facility] [address] [place], [place], [phone](304) Bilirubin, Directon 08-26-19 25 Bilirubin.direct [Mass/Vol] 0.21 mg/dL Normal 0.00-0.30 [facility] Comment on above: Performed By: #### L 501.2300, L501.5200, L501.4700, L100.0100, L501.5101, L3380.1000, L500.4050 ####[facility] [address] [place], [place], [id number] CBC W/Diff, Automatedon 06-2 Absolute Lymph 0.64 X10 3/uL Low 0.83-4.51 [facility] Comment on above: Performed By: #### L 501.2300, L501.5200, L501.4700, L100.0100, L501.5101, L3380.1000, L500.4050 ####[facility] [address] [place], [address] Absolute Neut 2.4 X10 3/uL Normal 2.0-7.7 [facility] Comment on above: Performed By: #### L 501.2300, L501.5200, L501.4700, L100.0100, L501.5101, L3380.1000, L500.4050 ####[facility] [address] [place], [address] Basophils/100 WBC (Bld) 1.3 % High 0-1 [facility] Comment on above: Performed By: #### L 501.2300, L501.5200, L501.4700, L100.0100, L501.5101, L3380.1000, L500.4050 ####[facility] [address] [place], [address] Eosinophils/100 WBC (Bld) 5.1 % High 0-5 [facility] Comment on above: Performed By: #### L 501.2300, L501.5200, L501.4700, L100.0100, L501.5101, L3380.1000, L500.4050 ####[facility] [address] [place], [address] Erythrocyte distribution width (RBC) [Ratio] 16.2 % High 11.6-14.6 [facility] Comment on above: Performed By: #### L 501.2300, L501.5200, L501.4700, L100.0100, L501.5101, L3380.1000, L500.4050 ####[facility] [address] [place], [address] Hematocrit (Bld) [Volume fraction] 32.4 % Low 40-54 [facility] Comment on above: Performed By: #### L 501.2300, L501.5200, L501.4700, L100.0100, L501.5101, L3380.1000, L500.4050 ####[facility] [address] [place], [address] Hemoglobin (Bld) [Mass/Vol] 10.1 g/dL Low 13.0-16.5 [facility] Comment on above: Performed By: #### L 501.2300, L501.5200, L501.4700, L100.0100, L501.5101, L3380.1000, L500.4050 ####[facility] [address] [place], [address] IG% 1.300 High 0.0-0.9 [facility] Comment on above: Result Comment: IG% - Immature Granulocytes (promyelocytes, myelocytes andmetamyelocytes) > 1% indicates that a LEFT SHIFT is Present. Performed By: #### L 501.2300, L501.5200, L501.4700, L100.0100, L501.5101, L3380.1000, L500.4050 ####[facility] [address] [place], [address] Lymphocytes/100 WBC (Bld) 17.3 % Low 19-41 [facility] Comment on above: Performed By: #### L 501.2300, L501.5200, L501.4700, L100.0100, L501.5101, L3380.1000, L500.4050 ####[facility] [address] [place], [address] MCH (RBC) [Entitic mass] 31.2 pg Normal 27.0-32.0 [facility] Comment on above: Performed By: #### L 501.2300, L501.5200, L501.4700, L100.0100, L501.5101, L3380.1000, L500.4050 ####[facility] [address] [place], [address] MCHC (RBC) [Mass/Vol] 31.2 g/dL Low 32-36 [facility] Comment on above: Performed By: #### L 501.2300, L501.5200, L501.4700, L100.0100, L501.5101, L3380.1000, L500.4050 ####[facility] [address] [place], [address] MCV (RBC) [Entitic vol] 100.0 fL High 80-94 [facility] Comment on above: Performed By: #### L 501.2300, L501.5200, L501.4700, L100.0100, L501.5101, L3380.1000, L500.4050 ####[facility] [address] [place], [address] Monocytes/100 WBC (Bld) 9.4 % Normal 0-10 [facility] Comment on above: Performed By: #### L 501.2300, L501.5200, L501.4700, L100.0100, L501.5101, L3380.1000, L500.4050 ####[facility] [address] [place], [address] Neutrophils/100 WBC (Bld) 65.6 % Normal 47-70 [facility] Comment on above: Performed By: #### L 501.2300, L501.5200, L501.4700, L100.0100, L501.5101, L3380.1000, L500.4050 ####[facility] [address] [place], [address] Nucleated RBC (Bld) [#/Vol] 0 10*3/uL Normal 0-5 [facility] Comment on above: Performed By: #### L 501.2300, L501.5200, L501.4700, L100.0100, L501.5101, L3380.1000, L500.4050 ####[facility] [address] [place], [address] Platelet mean volume (Bld) [Entitic vol] 10.9 fL Normal 6.2-12.0 [facility] Comment on above: Performed By: #### L 501.2300, L501.5200, L501.4700, L100.0100, L501.5101, L3380.1000, L500.4050 ####[facility] [address] [place], [address] Platelets (Bld) [#/Vol] 374 10*3/uL Normal 150-450 [facility] Comment on above: Performed By: #### L 501.2300, L501.5200, L501.4700, L100.0100, L501.5101, L3380.1000, L500.4050 ####[facility] [address] [place], [address] RBC (Bld) [#/Vol] 3.24 10*6/uL Low 4.6-6.2 [facility] Comment on above: Performed By: #### L 501.2300, L501.5200, L501.4700, L100.0100, L501.5101, L3380.1000, L500.4050 ####[facility] [address] [place], [address] RDW SD 59.7 fl High 35.1-43.9 [facility] Comment on above: Performed By: #### L 501.2300, L501.5200, L501.4700, L100.0100, L501.5101, L3380.1000, L500.4050 ####[facility] [address] [place], [address] WBC (Bld) [#/Vol] 3.7 10*3/uL Low 4.4-11.0 [facility] Comment on above: Performed By: #### L 501.2300, L501.5200, L501.4700, L100.0100, L501.5101, L3380.1000, L500.4050 ####[facility] [address] [place], [address] Comprehensive Metabolic Prof [facility] 08-25-2024 Albumin [Mass/Vol] 3.8 g/dL Normal 3.4-4.8 [facility] Comment on above: Performed By: #### L 501.2300, L501.5200, L501.4700, L100.0100, L501.5101, L3380.1000, L500.4050 ####[facility] [address] [place], [address] Albumin/Globulin [Mass ratio] 1.3 {ratio} Normal 0.9-2.4 [facility] Comment on above: Performed By: #### L 501.2300, L501.5200, L501.4700, L100.0100, L501.5101, L3380.1000, L500.4050 ####[facility] [address] [place], [address] ALK PHOS 298 U/L High 40-129 [facility] Comment on above: Performed By: #### L 501.2300, L501.5200, L501.4700, L100.0100, L501.5101, L3380.1000, L500.4050 ####[facility] [address] [place], [address] ALT [Catalytic activity/Vol] 42 U/L Normal <=46 [facility] Comment on above: Performed By: #### L 501.2300, L501.5200, L501.4700, L100.0100, L501.5101, L3380.1000, L500.4050 ####[facility] [address] [place], [address] AST [Catalytic activity/Vol] 33 U/L Normal <=37 [facility] Comment on above: Performed By: #### L 501.2300, L501.5200, L501.4700, L100.0100, L501.5101, L3380.1000, L500.4050 ####[facility] [address] [place], [address] Bilirubin [Mass/Vol] 0.28 mg/dL Normal 0.00-1.30 [facility] Comment on above: Performed By: #### L 501.2300, L501.5200, L501.4700, L100.0100, L501.5101, L3380.1000, L500.4050 ####[facility] [address] [place], [address] BUN/CRE 26.1 RATIO High 10-20 [facility] Comment on above: Performed By: #### L 501.2300, L501.5200, L501.4700, L100.0100, L501.5101, L3380.1000, L500.4050 ####[facility] [address] [place], [address] Calcium [Mass/Vol] 9.7 mg/dL Normal 7.6-11.0 [facility] Comment on above: Performed By: #### L 501.2300, L501.5200, L501.4700, L100.0100, L501.5101, L3380.1000, L500.4050 ####[facility] [address] [place], [address] Chloride [Moles/Vol] 103 mmol/L Normal 98-108 [facility] Comment on above: Performed By: #### L 501.2300, L501.5200, L501.4700, L100.0100, L501.5101, L3380.1000, L500.4050 ####[facility] [address] [place], [address] CO2 [Moles/Vol] 25.3 mmol/L Normal 21.0-32.0 [facility] Comment on above: Performed By: #### L 501.2300, L501.5200, L501.4700, L100.0100, L501.5101, L3380.1000, L500.4050 ####[facility] [address] [place], [address] Creatinine [Mass/Vol] 0.96 mg/dL Normal 0.70-1.20 [facility] Comment on above: Performed By: #### L 501.2300, L501.5200, L501.4700, L100.0100, L501.5101, L3380.1000, L500.4050 ####[facility] [address] [place], [address] GAP 11 Normal 5-15 [facility] Comment on above: Performed By: #### L 501.2300, L501.5200, L501.4700, L100.0100, L501.5101, L3380.1000, L500.4050 ####[facility] [address] [place], [address] GFR/1.73 sq M.predicted among non-blacks MDRD (S/P/Bld) [Vol rate/Area] 91 mL/min/{1.73_m2} Normal >60 [facility] Comment on above: Result Comment: mL/m in/1.73m2 CKD-EPI Creatinine Equation (2020) Performed By: #### L 501.2300, L501.5200, L501.4700, L100.0100, L501.5101, L3380.1000, L500.4050 ####[facility] [address] [place], [address] Globulin (S) [Mass/Vol] 2.9 g/dL Normal 2.2-4.2 [facility] Comment on above: Performed By: #### L 501.2300, L501.5200, L501.4700, L100.0100, L501.5101, L3380.1000, L500.4050 ####[facility] [address] [place], [address] Glucose [Mass/Vol] 108 mg/dL High 70-99 [facility] Comment on above: Performed By: #### L 501.2300, L501.5200, L501.4700, L100.0100, L501.5101, L3380.1000, L500.4050 ####[facility] [address] [place], [address] Potassium [Moles/Vol] 4.4 mmol/L Normal 3.3-5.1 [facility] Comment on above: Performed By: #### L 501.2300, L501.5200, L501.4700, L100.0100, L501.5101, L3380.1000, L500.4050 ####[facility] [address] [place], [address] Sodium [Moles/Vol] 139 mmol/L Normal 133-145 [facility] Comment on above: Performed By: #### L 501.2300, L501.5200, L501.4700, L100.0100, L501.5101, L3380.1000, L500.4050 ####[facility] [address] [place], [address] T PROT 6.6 g/dL Normal 5.9-8.4 [facility] Comment on above: Performed By: #### L 501.2300, L501.5200, L501.4700, L100.0100, L501.5101, L3380.1000, L500.4050 ####[facility] [address] [place], [address] Urea nitrogen [Mass/Vol] 25 mg/dL High 4-19 [facility] Comment on above: Performed By: #### L 501.2300, L501.5200, L501.4700, L100.0100, L501.5101, L3380.1000, L500.4050 ####[facility] [address] [place], [address] Gamma glutamyl transferase ( GGT) measurementon 08-25-2024 Amylase [Catalytic activity/Vol] 154 U/L High 0-65 [facility] Comment on above: Performed at: [address] [id number] Director: Sergio Machado MD, Phone: [phone] at: [facility] Center[facility]dyBounce[address] [id number] Director: Red Graham PhD, Phone: [phone] Magnesiumon 08-25-2024 Magnesium [Mass/Vol] 1.7 mg/dL Normal 1.5-2.2 [facility] Comment on above: Performed By: #### L 501.2300, L501.5200, L501.4700, L100.0100, L501.5101, L3380.1000, L500.4050 ####[facility] [address] [place], [address] Phosphoruson 08-25-2024 Phosphate [Mass/Vol] 2.8 mg/dL Normal 2.7-4.5 [facility] Comment on above: Performed By: #### L 501.2300, L501.5200, L501.4700, L100.0100, L501.5101, L3380.1000, L500.4050 ####[facility] [address] [place], [address] L501.5101on 08-24-2024 GGTP 138 IU/L Abnormal 0-65 [facility] Comment on above: Order Comment: Test( s) 439061-Tjygixakqe (FK506), Bloodwas developed and its performance characteristicsdetermined by [facility]. It has not been cleared or approvedby the Food and Drug Administration. Result Comment: Perf ormed at: [address] [id number] Director: Sergio Machado MD, Phone: [phone] at: [facility] [id number] [place], [place] [id number] Director: Red Graham PhD, Phone: [phone] Performed By: #### L 501.2300, L501.5101, L500.4050, L501.4700, L501.5200, L3380.1000, L100.0100 ####[facility] [address] [place], [address] Tacrolimus (Prograf)on 08-24 Tacrolimus (Bld) [Mass/Vol] 8.6 ng/mL Normal 5.0-20.0 [facility] Comment on above: Order Comment: Test( s) 384573-Cfytgldtub (FK506), Bloodwas developed and its performance characteristicsdetermined by [facility]. It has not been cleared or approvedby [...] 501.2300, L501.5101, L500.4050, L501.4700, L501.5200, L3380.1000, L100.0100 ####[facility] [address] [place], [address] Bilirubin, Directon 08-23-19 Bilirubin.direct [Mass/Vol] 0.19 mg/dL Normal 0.00-0.30 [facility] Comment on above: Performed By: #### L 501.2300, L501.5101, L500.4050, L501.4700, L501.5200, L3380.1000, L100.0100 ####[facility] [address] [place], [address] Blood manual differential co mment interpretation (narrative result)on 08-22-2024 Manual differential comment Deandre (Bld) [Interp] SCANNED [facility] Comment on above: 2+ HYPERSEGMENTATION Comprehensive Metabolic Prof ilon 08-22-2024 Albumin [Mass/Vol] 3.7 g/dL Normal 3.4-4.8 [facility] Comment on above: Performed By: #### L 501.2300, L501.5101, L500.4050, L501.4700, L501.5200, L3380.1000, L100.0100 ####[facility] [address] [place], [address] Albumin/Globulin [Mass ratio] 1.3 {ratio} Normal 0.9-2.4 [facility] Comment on above: Performed By: #### L 501.2300, L501.5101, L500.4050, L501.4700, L501.5200, L3380.1000, L100.0100 ####[facility] [address] [place], [address] ALK PHOS 304 U/L High 40-129 [facility] Comment on above: Performed By: #### L 501.2300, L501.5101, L500.4050, L501.4700, L501.5200, L3380.1000, L100.0100 ####[facility] [address] [place], [address] ALT [Catalytic activity/Vol] 36 U/L Normal <=46 [facility] Comment on above: Performed By: #### L 501.2300, L501.5101, L500.4050, L501.4700, L501.5200, L3380.1000, L100.0100 ####[facility] [address] [place], [address] AST [Catalytic activity/Vol] 27 U/L Normal <=37 [facility] Comment on above: Performed By: #### L 501.2300, L501.5101, L500.4050, L501.4700, L501.5200, L3380.1000, L100.0100 ####[facility] [address] [place], [address] Bilirubin [Mass/Vol] 0.31 mg/dL Normal 0.00-1.30 [facility] Comment on above: Performed By: #### L 501.2300, L501.5101, L500.4050, L501.4700, L501.5200, L3380.1000, L100.0100 ####[facility] [address] [place], [address] BUN/CRE 22.8 RATIO High 10-20 [facility] Comment on above: Performed By: #### L 501.2300, L501.5101, L500.4050, L501.4700, L501.5200, L3380.1000, L100.0100 ####[facility] [address] [place], [address] Calcium [Mass/Vol] 9.6 mg/dL Normal 7.6-11.0 [facility] Comment on above: Performed By: #### L 501.2300, L501.5101, L500.4050, L501.4700, L501.5200, L3380.1000, L100.0100 ####[facility] [address] [place], [address] Chloride [Moles/Vol] 103 mmol/L Normal 98-108 [facility] Comment on above: Performed By: #### L 501.2300, L501.5101, L500.4050, L501.4700, L501.5200, L3380.1000, L100.0100 ####[facility] [address] [place], [address] CO2 [Moles/Vol] 25.8 mmol/L Normal 21.0-32.0 [facility] Comment on above: Performed By: #### L 501.2300, L501.5101, L500.4050, L501.4700, L501.5200, L3380.1000, L100.0100 ####[facility] [address] [place], [address] Creatinine [Mass/Vol] 1.04 mg/dL Normal 0.70-1.20 [facility] Comment on above: Performed By: #### L 501.2300, L501.5101, L500.4050, L501.4700, L501.5200, L3380.1000, L100.0100 ####[facility] [address] [place], [place], [id number] GAP 11 Normal 5-15 [facility] Comment on above: Performed By: #### L 501.2300, L501.5101, L500.4050, L501.4700, L501.5200, L3380.1000, L100.0100 ####[facility] [address] [place], [address] GFR/1.73 sq M.predicted among non-blacks MDRD (S/P/Bld) [Vol rate/Area] 82 mL/min/{1.73_m2} Normal >60 [facility] Comment on above: Result Comment: mL/m in/1.73m2 CKD-EPI Creatinine Equation (2020) Performed By: #### L 501.2300, L501.5101, L500.4050, L501.4700, L501.5200, L3380.1000, L100.0100 ####[facility] [address] [place], [address] Globulin (S) [Mass/Vol] 2.8 g/dL Normal 2.2-4.2 [facility] Comment on above: Performed By: #### L 501.2300, L501.5101, L500.4050, L501.4700, L501.5200, L3380.1000, L100.0100 ####[facility] [address] [place], [address] Glucose [Mass/Vol] 97 mg/dL Normal 70-99 [facility] Comment on above: Performed By: #### L 501.2300, L501.5101, L500.4050, L501.4700, L501.5200, L3380.1000, L100.0100 ####[facility] [address] [place], [address] Potassium [Moles/Vol] 4.6 mmol/L Normal 3.3-5.1 [facility] Comment on above: Performed By: #### L 501.2300, L501.5101, L500.4050, L501.4700, L501.5200, L3380.1000, L100.0100 ####[facility] [address] [place], [address] Sodium [Moles/Vol] 139 mmol/L Normal 133-145 [facility] Comment on above: Performed By: #### L 501.2300, L501.5101, L500.4050, L501.4700, L501.5200, L3380.1000, L100.0100 ####[facility] [address] [place], [address] T PROT 6.5 g/dL Normal 5.9-8.4 [facility] Comment on above: Performed By: #### L 501.2300, L501.5101, L500.4050, L501.4700, L501.5200, L3380.1000, L100.0100 ####[facility] [address] [place], [address] Urea nitrogen [Mass/Vol] 24 mg/dL High 4-19 [facility] Comment on above: Performed By: #### L 501.2300, L501.5101, L500.4050, L501.4700, L501.5200, L3380.1000, L100.0100 ####[facility] [address] [place], [place], [phone] L501.5101on 08-22-2024 GGTP 128 IU/L Abnormal 0-65 [facility] Comment on above: Order Comment: Test( s) 736630-Oyqtnikygk (FK506), Bloodwas developed and its performance characteristicsdetermined by [facility]. It has not been cleared or approvedby the Food and Drug Administration. Result Comment: Perf ormed at: [facility] [address] [id number] Director: Sergio Machado MD, Phone: [phone] at: [facility] [address] [id number] Director: Red Graham PhD, Phone: [phone] Performed By: #### L 3380.1000, L501.5101, L100.0100, L501.5200, L500.4050, L501.2300, L501.4700 ####[facility] [address] [place], [place], [phone] Magnesiumon 08-22-2024 Magnesium [Mass/Vol] 1.6 mg/dL Normal 1.5-2.2 [facility] Comment on above: Performed By: #### L 501.2300, L501.5101, L500.4050, L501.4700, L501.5200, L3380.1000, L100.0100 ####[facility] [address] [place], [address] Phosphoruson 08-22-2024 Phosphate [Mass/Vol] 3.2 mg/dL Normal 2.7-4.5 [facility] Comment on above: Performed By: #### L 501.2300, L501.5101, L500.4050, L501.4700, L501.5200, L3380.1000, L100.0100 ####[facility] [address] [place], [place], [phone] Review by pathologiston 08-01 Pathologist review Deandre (Unsp spec) [Interp] Patricia delgado [facility] Pathologist review Deandre (Unsp spec) [Interp] Reviewed [facility] Comment on above: Previous reported re sult: Patricia delgado Edited by: SAMIR on 09/07/24:1533SEE REPORT IN PATIENT'S EMR AMENDED REPORT 09/07/24 153 PATH REV previously reported as: Patricia delgado Tacrolimus (Prograf)on 08-22 Tacrolimus (Bld) [Mass/Vol] 8.3 ng/mL Normal 5.0-20.0 [facility] Comment on above: Order Comment: Test( s) 184216-Rtcprlynhn (FK506), Bloodwas developed and its performance characteristicsdetermined by [facility]. It has not been cleared or approvedby [...] 3380.1000, L501.5101, L100.0100, L501.5200, L500.4050, L501.2300, L501.4700 ####[facility] [address] [place], [place], [phone] Bilirubin, Directon 08-19-19 Bilirubin.direct [Mass/Vol] 0.17 mg/dL Normal 0.00-0.30 [facility] Comment on above: Performed By: #### L 3380.1000, L501.5101, L100.0100, L501.5200, L500.4050, L501.2300, L501.4700 ####[facility] [address] [place], [address] CBC W/Diff, Automatedon 06- SMEAR COMMENT SCANNED Normal [facility] Comment on above: Performed By: #### L 3380.1000, L501.5101, L100.0100, L501.5200, L500.4050, L501.2300, L501.4700 ####[facility] [address] [place], [address] Comprehensive Metabolic Prof ilon 08-18-2024 Albumin [Mass/Vol] 3.8 g/dL Normal 3.4-4.8 [facility] Comment on above: Performed By: #### L 3380.1000, L501.5101, L100.0100, L501.5200, L500.4050, L501.2300, L501.4700 ####[facility] [address] [place], [place], [phone] Albumin/Globulin [Mass ratio] 1.5 {ratio} Normal 0.9-2.4 [facility] Comment on above: Performed By: #### L 3380.1000, L501.5101, L100.0100, L501.5200, L500.4050, L501.2300, L501.4700 ####[facility] [address] [place], [address] ALK PHOS 307 U/L High 40-129 [facility] Comment on above: Performed By: #### L 3380.1000, L501.5101, L100.0100, L501.5200, L500.4050, L501.2300, L501.4700 ####[facility] [address] [place], [address] ALT [Catalytic activity/Vol] 43 U/L Normal <=46 [facility] Comment on above: Performed By: #### L 3380.1000, L501.5101, L100.0100, L501.5200, L500.4050, L501.2300, L501.4700 ####[facility] [address] [place], [address] AST [Catalytic activity/Vol] 30 U/L Normal <=37 [facility] Comment on above: Performed By: #### L 3380.1000, L501.5101, L100.0100, L501.5200, L500.4050, L501.2300, L501.4700 ####[facility] [address] [place], [address] Bilirubin [Mass/Vol] 0.29 mg/dL Normal 0.00-1.30 [facility] Comment on above: Performed By: #### L 3380.1000, L501.5101, L100.0100, L501.5200, L500.4050, L501.2300, L501.4700 ####[facility] [address] [place], [address] BUN/CRE 24.1 RATIO High 10-20 [facility] Comment on above: Performed By: #### L 3380.1000, L501.5101, L100.0100, L501.5200, L500.4050, L501.2300, L501.4700 ####[facility] [address] [place], [address] Calcium [Mass/Vol] 9.5 mg/dL Normal 7.6-11.0 [facility] Comment on above: Performed By: #### L 3380.1000, L501.5101, L100.0100, L501.5200, L500.4050, L501.2300, L501.4700 ####[facility] [address] [place], [address] Chloride [Moles/Vol] 103 mmol/L Normal 98-108 [facility] Comment on above: Performed By: #### L 3380.1000, L501.5101, L100.0100, L501.5200, L500.4050, L501.2300, L501.4700 ####[facility] [address] [place], [address] CO2 [Moles/Vol] 25.6 mmol/L Normal 21.0-32.0 [facility] Comment on above: Performed By: #### L 3380.1000, L501.5101, L100.0100, L501.5200, L500.4050, L501.2300, L501.4700 ####[facility] [address] [place], [place], [phone]) Creatinine [Mass/Vol] 0.91 mg/dL Normal 0.70-1.20 [facility] Comment on above: Performed By: #### L 3380.1000, L501.5101, L100.0100, L501.5200, L500.4050, L501.2300, L501.4700 ####[facility] [address] [place], [place], [phone] GAP 10 Normal 5-15 [facility] Comment on above: Performed By: #### L 3380.1000, L501.5101, L100.0100, L501.5200, L500.4050, L501.2300, L501.4700 ####[facility] [address] [place], [place], [phone]) GFR/1.73 sq M.predicted among non-blacks MDRD (S/P/Bld) [Vol rate/Area] 96 mL/min/{1.73_m2} Normal >60 [facility] Comment on above: Result Comment: mL/m in/1.73m2 CKD-EPI Creatinine Equation (2020) Performed By: #### L 3380.1000, L501.5101, L100.0100, L501.5200, L500.4050, L501.2300, L501.4700 ####[facility] [address] [place], [address] Globulin (S) [Mass/Vol] 2.5 g/dL Normal 2.2-4.2 [facility] Comment on above: Performed By: #### L 3380.1000, L501.5101, L100.0100, L501.5200, L500.4050, L501.2300, L501.4700 ####[facility] [address] [place], [address] Glucose [Mass/Vol] 97 mg/dL Normal 70-99 [facility] Comment on above: Performed By: #### L 3380.1000, L501.5101, L100.0100, L501.5200, L500.4050, L501.2300, L501.4700 ####[facility] [address] [place], [address] Potassium [Moles/Vol] 4.5 mmol/L Normal 3.3-5.1 [facility] Comment on above: Performed By: #### L 3380.1000, L501.5101, L100.0100, L501.5200, L500.4050, L501.2300, L501.4700 ####[facility] [address] [place], [address] Sodium [Moles/Vol] 139 mmol/L Normal 133-145 [facility] Comment on above: Performed By: #### L 3380.1000, L501.5101, L100.0100, L501.5200, L500.4050, L501.2300, L501.4700 ####[facility] [address] [place], [address] T PROT 6.3 g/dL Normal 5.9-8.4 [facility] Comment on above: Performed By: #### L 3380.1000, L501.5101, L100.0100, L501.5200, L500.4050, L501.2300, L501.4700 ####[facility] [address] [place], [address] Urea nitrogen [Mass/Vol] 22 mg/dL High - [facility] Comment on above: Performed By: #### L 3380.1000, L501.5101, L100.0100, L501.5200, L500.4050, L501.2300, L501.4700 ####[facility] [address] [place], [address] L3410.9992on 08-18-2024 [facility]. COMMENT Normal . [facility] Comment on above: Order Comment: 06708 4Phosphatidylethanol WB EDTA RT Result Comment: Test Ordered: [id number] Phosphatidylethanol (PEth)PHOSPHATIDYLETHANOL Negative MX Reference Range: .Phosphatidylethanol (PEth) Negative ng/mL MX Reference Range: .Analyzed compound: PEth 16:0/18:1. 3-qcwkcuvgf-9-agnkls-tt-hgvrvwf-3-phosphoethanol.Analysis performed by Liquid Chromatography withTandem Mass Spectrometry [...] was developed and its performance characteristicsdetermined by [facility]. It has not been cleared or approvedby the Food and Drug Administration.Performed at: [employer] [address] [id number] Director: Clau Abdalla [facility], Phone: [phone] at: [facility] [address] [id number] [place], [place] [id number] Director: Red Graham PhD, Phone: [phone] Performed By: #### L 3410.9992, L501.4700, L501.2300, L3380.1000, L501.5200, L501.5101 ####[facility] [address] [place], [place], [phone] L501.5101on 08-18-2024 GGTP 168 IU/L Abnormal 0-65 [facility] Comment on above: Order Comment: Test( s) 033104-Csvptgdswt (FK506), Bloodwas developed and its performance characteristicsdetermined by [facility]. It has not been cleared or approvedby the Food and Drug Administration. Result Comment: Perf ormed at: [facility] [address] [id number] Director: Sergio Machado MD, Phone: [phone] at: [facility] [address] [id number] Director: Red Graham PhD, Phone: [phone] Performed By: #### L 501.5200, L501.2300, L3380.1000, L501.5101, L501.4700, L500.4050, L100.0100 ####[facility] [address] [place], [place], [id number] Magnesiumon 08-18-2024 Magnesium [Mass/Vol] 1.4 mg/dL Low 1.5-2.2 [facility] Comment on above: Performed By: #### L 3380.1000, L501.5101, L100.0100, L501.5200, L500.4050, L501.2300, L501.4700 ####[facility] [address] [place], [address] Phosphoruson 08-18-2024 Phosphate [Mass/Vol] 3.5 mg/dL Normal 2.7-4.5 [facility] Comment on above: Performed By: #### L 3380.1000, L501.5101, L100.0100, L501.5200, L500.4050, L501.2300, L501.4700 ####[facility] [address] [place], [address] Tacrolimus (Prograf)on 08-18 Tacrolimus (Bld) [Mass/Vol] 8.5 ng/mL Normal 5.0-20.0 [facility] Comment on above: Order Comment: Test( s) 677042-Zvowtjgqiy (FK506), Bloodwas developed and its performance characteristicsdetermined by [facility]. It has not been cleared or approvedby [...] 501.5200, L501.2300, L3380.1000, L501.5101, L501.4700, L500.4050, L100.0100 ####[facility] [address] [place], [address] Oncology Visit Reporton 07-31 Oncology Visit Report Normal [facility] Bilirubin, Directon 08-17-19 25 Bilirubin.direct [Mass/Vol] 0.27 mg/dL Normal 0.00-0.30 [facility] Comment on above: Performed By: #### L 501.5200, L501.2300, L3380.1000, L501.5101, L501.4700, L500.4050, L100.0100 ####[facility] [address] [place], [address] Comprehensive Metabolic Prof ilon 08-16-2024 Albumin [Mass/Vol] 4.0 g/dL Normal 3.4-4.8 [facility] Comment on above: Performed By: #### L 501.5200, L501.2300, L3380.1000, L501.5101, L501.4700, L500.4050, L100.0100 ####[facility] [address] [place], [address] Albumin/Globulin [Mass ratio] 1.5 {ratio} Normal 0.9-2.4 [facility] Comment on above: Performed By: #### L 501.5200, L501.2300, L3380.1000, L501.5101, L501.4700, L500.4050, L100.0100 ####[facility] [address] [place], [address] ALK PHOS 364 U/L High 40-129 [facility] Comment on above: Performed By: #### L 501.5200, L501.2300, L3380.1000, L501.5101, L501.4700, L500.4050, L100.0100 ####[facility] [address] [place], [address] ALT [Catalytic activity/Vol] 71 U/L High <=46 [facility] Comment on above: Performed By: #### L 501.5200, L501.2300, L3380.1000, L501.5101, L501.4700, L500.4050, L100.0100 ####[facility] [address] [place], [address] AST [Catalytic activity/Vol] 43 U/L High <=37 [facility] Comment on above: Performed By: #### L 501.5200, L501.2300, L3380.1000, L501.5101, L501.4700, L500.4050, L100.0100 ####[facility] [address] [place], [address] Bilirubin [Mass/Vol] 0.43 mg/dL Normal 0.00-1.30 [facility] Comment on above: Performed By: #### L 501.5200, L501.2300, L3380.1000, L501.5101, L501.4700, L500.4050, L100.0100 ####[facility] [address] [place], [address] BUN/CRE 31.0 RATIO High 10-20 [facility] Comment on above: Performed By: #### L 501.5200, L501.2300, L3380.1000, L501.5101, L501.4700, L500.4050, L100.0100 ####[facility] [address] [place], [address] Calcium [Mass/Vol] 9.9 mg/dL Normal 7.6-11.0 [facility] Comment on above: Performed By: #### L 501.5200, L501.2300, L3380.1000, L501.5101, L501.4700, L500.4050, L100.0100 ####[facility] [address] [place], [address] Chloride [Moles/Vol] 103 mmol/L Normal 98-108 [facility] Comment on above: Performed By: #### L 501.5200, L501.2300, L3380.1000, L501.5101, L501.4700, L500.4050, L100.0100 ####[facility] [address] [place], [address] CO2 [Moles/Vol] 25.8 mmol/L Normal 21.0-32.0 [facility] Comment on above: Performed By: #### L 501.5200, L501.2300, L3380.1000, L501.5101, L501.4700, L500.4050, L100.0100 ####[facility] [address] [place], [address] Creatinine [Mass/Vol] 0.88 mg/dL Normal 0.70-1.20 [facility] Comment on above: Performed By: #### L 501.5200, L501.2300, L3380.1000, L501.5101, L501.4700, L500.4050, L100.0100 ####[facility] [address] [place], [address] GAP 10 Normal 5-15 [facility] Comment on above: Performed By: #### L 501.5200, L501.2300, L3380.1000, L501.5101, L501.4700, L500.4050, L100.0100 ####[facility] [address] [place], [address] GFR/1.73 sq M.predicted among non-blacks MDRD (S/P/Bld) [Vol rate/Area] 98 mL/min/{1.73_m2} Normal >60 [facility] Comment on above: Result Comment: mL/m in/1.73m2 CKD-EPI Creatinine Equation (2020) Performed By: #### L 501.5200, L501.2300, L3380.1000, L501.5101, L501.4700, L500.4050, L100.0100 ####[facility] [address] [place], [address] Globulin (S) [Mass/Vol] 2.7 g/dL Normal 2.2-4.2 [facility] Comment on above: Performed By: #### L 501.5200, L501.2300, L3380.1000, L501.5101, L501.4700, L500.4050, L100.0100 ####[facility] [address] [place], [address] Glucose [Mass/Vol] 125 mg/dL High 70-99 [facility] Comment on above: Performed By: #### L 501.5200, L501.2300, L3380.1000, L501.5101, L501.4700, L500.4050, L100.0100 ####[facility] [address] [place], [address] Potassium [Moles/Vol] 4.3 mmol/L Normal 3.3-5.1 [facility] Comment on above: Performed By: #### L 501.5200, L501.2300, L3380.1000, L501.5101, L501.4700, L500.4050, L100.0100 ####[facility] [address] [place], [address] Sodium [Moles/Vol] 139 mmol/L Normal 133-145 [facility] Comment on above: Performed By: #### L 501.5200, L501.2300, L3380.1000, L501.5101, L501.4700, L500.4050, L100.0100 ####[facility] [address] [place], [address] T PROT 6.6 g/dL Normal 5.9-8.4 [facility] Comment on above: Performed By: #### L 501.5200, L501.2300, L3380.1000, L501.5101, L501.4700, L500.4050, L100.0100 ####[facility] [address] [place], [address] Urea nitrogen [Mass/Vol] 27 mg/dL High 4-19 [facility] Comment on above: Performed By: #### L 501.5200, L501.2300, L3380.1000, L501.5101, L501.4700, L500.4050, L100.0100 ####[facility] [address] [place], [address] Absolute lymphocyte counton 08-15-2024 Lymphocytes Auto (Unsp spec) [#/Vol] 0.75 10*3/uL Low 0.83-4.51 [facility] Absolute neutrophil counton 08-15-2024 Neutrophils (Bld) [#/Vol] 3.1 10*3/uL 2.0-7.7 [facility] Anion gap in Serum or Plasma on 08-15-2024 Anion gap [Moles/Vol] 10 mmol/L 5-15 [facility] Automated lymphocyte count a s percentage of total leukocyteson 08-15-2024 Lymphocytes/100 WBC Auto (Unsp spec) 16.8 % Low 19-41 [facility] BUN/creatinine ratioon 08-15 Urea nitrogen/Creatinine [Mass ratio] 31.0 mg/mg High 10-20 [facility] Basophil percentageon 2024 Basophils/100 WBC (Bld) 1.6 % High 0-1 [facility] Bilirubin directon 5 Bilirubin.direct [Mass/Vol] 0.27 mg/dL 0.00-0.30 [facility] Bilirubin, totalon 5 Bilirubin [Mass/Vol] 0.43 mg/dL 0.00-1.30 [facility] CBC W/Diff, Automatedon 07-31 Absolute Lymph 0.75 X10 3/uL Low 0.83-4.51 [facility] Comment on above: Performed By: #### L 501.5200, L501.2300, L3380.1000, L501.5101, L501.4700, L500.4050, L100.0100 ####[facility] [address] [place], [address] Absolute Neut 3.1 X10 3/uL Normal 2.0-7.7 [facility] Comment on above: Performed By: #### L 501.5200, L501.2300, L3380.1000, L501.5101, L501.4700, L500.4050, L100.0100 ####[facility] [address] [place], [address] Basophils/100 WBC (Bld) 1.6 % High 0-1 [facility] Comment on above: Performed By: #### L 501.5200, L501.2300, L3380.1000, L501.5101, L501.4700, L500.4050, L100.0100 ####[facility] [address] [place], [address] Eosinophils/100 WBC (Bld) 1.8 % Normal 0-5 [facility] Comment on above: Performed By: #### L 501.5200, L501.2300, L3380.1000, L501.5101, L501.4700, L500.4050, L100.0100 ####[facility] [address] [place], [address] Erythrocyte distribution width (RBC) [Ratio] 17.0 % High 11.6-14.6 [facility] Comment on above: Performed By: #### L 501.5200, L501.2300, L3380.1000, L501.5101, L501.4700, L500.4050, L100.0100 ####[facility] [address] [place], [address] Hematocrit (Bld) [Volume fraction] 33.6 % Low 40-54 [facility] Comment on above: Performed By: #### L 501.5200, L501.2300, L3380.1000, L501.5101, L501.4700, L500.4050, L100.0100 ####[facility] [address] [place], [address] Hemoglobin (Bld) [Mass/Vol] 10.7 g/dL Low 13.0-16.5 [facility] Comment on above: Performed By: #### L 501.5200, L501.2300, L3380.1000, L501.5101, L501.4700, L500.4050, L100.0100 ####[facility] [id number] [place], [address] IG% 1.600 High 0.0-0.9 [facility] Comment on above: Result Comment: IG% - Immature Granulocytes (promyelocytes, myelocytes andmetamyelocytes) > 1% indicates that a LEFT SHIFT is Present. Performed By: #### L 501.5200, L501.2300, L3380.1000, L501.5101, L501.4700, L500.4050, L100.0100 ####[facility] [id number] [place], [address] Lymphocytes/100 WBC (Bld) 16.8 % Low 19-41 [facility] Comment on above: Performed By: #### L 501.5200, L501.2300, L3380.1000, L501.5101, L501.4700, L500.4050, L100.0100 ####[facility] [id number] [place], [address] [facility] (RBC) [Entitic mass] 31.8 pg Normal 27.0-32.0 [facility] Comment on above: Performed By: #### L 501.5200, L501.2300, L3380.1000, L501.5101, L501.4700, L500.4050, L100.0100 ####[facility] [address] [place], [address] MCHC (RBC) [Mass/Vol] 31.8 g/dL Low 32-36 [facility] Comment on above: Performed By: #### L 501.5200, L501.2300, L3380.1000, L501.5101, L501.4700, L500.4050, L100.0100 ####[facility] [address] [place], [address] MCV (RBC) [Entitic vol] 99.7 fL High 80-94 [facility] Comment on above: Performed By: #### L 501.5200, L501.2300, L3380.1000, L501.5101, L501.4700, L500.4050, L100.0100 ####[facility] [address] [place], [address] Monocytes/100 WBC (Bld) 8.1 % Normal 0-10 [facility] Comment on above: Performed By: #### L 501.5200, L501.2300, L3380.1000, L501.5101, L501.4700, L500.4050, L100.0100 ####[facility] [address] [place], [address] Neutrophils/100 WBC (Bld) 70.1 % High 47-70 [facility] Comment on above: Performed By: #### L 501.5200, L501.2300, L3380.1000, L501.5101, L501.4700, L500.4050, L100.0100 ####[facility] [address] [place], [address] Nucleated RBC (Bld) [#/Vol] 0 10*3/uL Normal 0-5 [facility] Comment on above: Performed By: #### L 501.5200, L501.2300, L3380.1000, L501.5101, L501.4700, L500.4050, L100.0100 ####[facility] [address] [place], [address] Platelet mean volume (Bld) [Entitic vol] 10.5 fL Normal 6.2-12.0 [facility] Comment on above: Performed By: #### L 501.5200, L501.2300, L3380.1000, L501.5101, L501.4700, L500.4050, L100.0100 ####[facility] [address] [place], [address] Platelets (Bld) [#/Vol] 411 10*3/uL Normal 150-450 [facility] Comment on above: Performed By: #### L 501.5200, L501.2300, L3380.1000, L501.5101, L501.4700, L500.4050, L100.0100 ####[facility] [address] [place], [address] RBC (Bld) [#/Vol] 3.37 10*6/uL Low 4.6-6.2 [facility] Comment on above: Performed By: #### L 501.5200, L501.2300, L3380.1000, L501.5101, L501.4700, L500.4050, L100.0100 ####[facility] [address] [place], [address] RDW SD 62.9 fl High 35.1-43.9 [facility] Comment on above: Performed By: #### L 501.5200, L501.2300, L3380.1000, L501.5101, L501.4700, L500.4050, L100.0100 ####[facility] [address] [place], [address] WBC (Bld) [#/Vol] 4.5 10*3/uL Normal 4.4-11.0 [facility] Comment on above: Performed By: #### L 501.5200, L501.2300, L3380.1000, L501.5101, L501.4700, L500.4050, L100.0100 ####[facility] [address] [place], [address] Carbon dioxide, total [Moles /volume] in Central venous bloodon 08-15-2024 CO2 [Moles/Vol] 25.8 mmol/L 21.0-32.0 [facility] Chloride assayon 08-15-2024 Chloride [Moles/Vol] 103 mmol/L 98-108 [facility] Eosinophil percentageon 07-31 Eosinophils/100 WBC (Bld) 1.8 % 0-5 [facility] Erythrocyte distribution wid th ratioon 08-15-2024 Erythrocyte distribution width (RBC) [Ratio] 17.0 % High 11.6-14.6 [facility] Erythrocyte distribution wid th standard deviationon 08-15-2024 Erythrocyte distribution width (RBC) [Ratio] 62.9 fl High 35.1-43.9 [facility] Glomerular filtration rate ( GFR) estimation/1.73 sq m using serum, plasma, or whole bon 08-15-2024 GFR/1.73 sq M.predicted among non-blacks MDRD (S/P/Bld) [Vol rate/Area] 98 mL/min/{1.73_m2} >60 [facility] Comment on above: mL/min/1.73m2 CKD-EP I Creatinine Equation (2020) Hematocrit Auto (Bld) [Volum e fraction]on 08-15-2024 Hematocrit (Bld) [Volume fraction] 33.6 % Low 40-54 [facility] Hemoglobin measurementon Hemoglobin (Bld) [Mass/Vol] 10.7 g/dL Low 13.0-16.5 [facility] Immature granulocytes/100 WB C Auto (Bld)on 08-15-2024 Immature granulocytes/100 WBC (Bld) 1.600 % High 0.0-0.9 [facility] Comment on above: IG% - Immature Granu locytes (promyelocytes, myelocytes and metamyelocytes) > 1% indicates that a LEFT SHIFT is Present. Laboratory - Chemistry and C hemistry - challengeon 08-15-2024 AST [Catalytic activity/Vol] 43 U/L High <38 [facility] MCV (mean corpuscular volume ) determinationon 08-15-2024 MCV (RBC) [Entitic vol] 99.7 fL High 80-94 [facility] Magnesiumon 08-15-2024 Magnesium [Mass/Vol] 1.6 mg/dL Normal 1.5-2.2 [facility] Comment on above: Performed By: #### L 501.5200, L501.2300, L3380.1000, L501.5101, L501.4700, L500.4050, L100.0100 ####[facility] [address] [place], [address] Magnesium measurement (mass/ volume)on 08-15-2024 Magnesium (Unsp spec) [Mass/Vol] 1.6 mg/dL 1.5-2.2 [facility] Mean corpuscular hemoglobin (MCH) determinationon 08-15-2024 MCH (RBC) [Entitic mass] 31.8 pg 27.0-32.0 [facility] Mean corpuscular hemoglobin concentration (MCHC) determinationon 08-15-2024 MCHC (RBC) [Mass/Vol] 31.8 g/dL Low 32-36 [facility] Mean platelet volume determi nationon 08-15-2024 Platelet mean volume (Bld) [Entitic vol] 10.5 fL 6.2-12.0 [facility] Monocyte percentageon 2024 Monocytes/100 WBC (Bld) 8.1 % 0-10 [facility] Neutrophil percentageon 07-31 Neutrophils/100 WBC (Bld) 70.1 % High 47-70 [facility] Nucleated red blood cell per centageon 08-15-2024 Nucleated RBC/100 WBC (Bld) [Ratio] 0 % 0-5 [facility] Phosphoruson 08-15-2024 Phosphate [Mass/Vol] 3.0 mg/dL Normal 2.7-4.5 [facility] Comment on above: Performed By: #### L 501.5200, L501.2300, L3380.1000, L501.5101, L501.4700, L500.4050, L100.0100 ####[facility] [address] [place], [address] Platelet counton 08-15-2024 Platelets (Bld) [#/Vol] 411 10*3/uL 150-450 [facility] Potassium measurement (mass/ volume)on 08-15-2024 Potassium (Unsp spec) [Mass/Vol] 4.3 mmol/L 3.3-5.1 [facility] RBC Auto (Bld) [#/Vol]on RBC (Bld) [#/Vol] 3.37 10*6/uL Low 4.6-6.2 [facility] Serum creatinine measurement (mass/volume)on 08-15-2024 Creatinine [Mass/Vol] 0.88 mg/dL 0.70-1.20 [facility] Serum globulin measurementon 08-15-2024 Globulin (S) [Mass/Vol] 2.7 g/dL 2.2-4.2 [facility] Serum glucose measurement (m ass/volume)on 08-15-2024 Glucose [Mass/Vol] 125 mg/dL High 70-99 [facility] Serum or plasma alanine craig otransferase (ALT) measurementon 08-15-2024 ALT [Catalytic activity/Vol] 71 U/L High <47 [facility] Serum or plasma albumin megha urement (mass/volume)on 08-15-2024 Albumin [Mass/Vol] 4.0 g/dL 3.4-4.8 [facility] Serum or plasma albumin/glob ulin mass ratioon 08-15-2024 Albumin/Globulin [Mass ratio] 1.5 {ratio} 0.9-2.4 [facility] Serum or plasma alkaline sal sphatase measurementon 08-15-2024 ALP [Catalytic activity/Vol] 364 U/L High 40-129 [facility] Serum or plasma calcium megha urement (mass/volume)on 08-15-2024 Calcium [Mass/Vol] 9.9 mg/dL 7.6-11.0 [facility] Serum or plasma urea nitroge n measurement (mass/volume)on 08-15-2024 Urea nitrogen [Mass/Vol] 27 mg/dL High 4-19 [facility] Sodium levelon 08-15-2024 Sodium [Moles/Vol] 139 mmol/L 133-145 [facility] Total proteinon 08-15-2024 Protein [Mass/Vol] 6.6 g/dL 5.9-8.4 [facility] White blood cell (WBC) count on 08-15-2024 WBC (Bld) [#/Vol] 4.5 10*3/uL 4.4-11.0 [facility] L501.5101on 08-14-2024 GGTP 156 IU/L Abnormal 0-65 [facility] Comment on above: Order Comment: Test( s) 279499-[id number] (FK506), Bloodwas developed and its performance characteristicsdetermined by [facility]. It has not been cleared or approvedby the Food and Drug Administration. Result Comment: Perf ormed at: [facility] [address] [id number] Director: Sergio Machado MD, Phone: [phone] at: [facility] [address] [id number] Director: Red Graham PhD, Phone: [phone] Performed By: #### L 2015.3538, L5014700, L501.2300, L3380.1000, L501.5200, L501.5101 ####[facility] [address] [place], [address] Tacrolimus (Prograf)on 08-14 Tacrolimus (Bld) [Mass/Vol] 7.2 ng/mL Normal 5.0-20.0 [facility] Comment on above: Order Comment: Test( s) [id number] (FK506), Bloodwas developed and its performance characteristicsdetermined by [facility]. It has not been cleared or approvedby [...] L 3410.9992, L501.4700, L501.2300, L3380.1000, L501.5200, L501.5101 ####[facility] [address] [place], [address] Carcinoembryonic Antigenon 0 08-13-2024 CEA 1.7 ng/mL Normal 0.0-4.7 [facility] Comment on above: Result Comment: Nons mokers <3.9 Smokers <5.6[employer] Electrochemiluminescence Immunoassay(ECLIA)Values obtained with different assay methods or kitscannot be used interchangeably. Results cannot beinterpreted as absolute evidence of the presence orabsence of malignant disease.Performed at: [address] [id number] Director: Red Graham PhD, Phone: [phone] Performed By: #### L 503.6030, L3100.2300, L100.9950, L503.6550, L503.0106, L500.4050, L100.0100 ####[facility] [address] [place], [place], [address] CBC W/Diff, Automatedon - PATH REV Reviewed Normal [facility] Comment on above: Result Comment: SEE REPORT IN PATIENT'S EMR AMENDED REPORT 08/12/24 1553 PATH REV previously reported as: June Performed By: #### L 3380.1000, L501.5101, L501.5200, L500.4050, L501.2300, L501.4700, L100.0100 ####[facility] [address] [place], [address] Bilirubin, Directon 08-12-19 25 Bilirubin.direct [Mass/Vol] 0.18 mg/dL Normal 0.00-0.30 [facility] Comment on above: Performed By: #### L 3410.9992, L501.4700, L501.2300, L3380.1000, L501.5200, L501.5101 ####[facility] [address] [place], [address] CBC W/Diff, Automatedon -03 03-2024 Absolute Lymph 0.94 X10 3/uL Normal 0.83-4.51 [facility] Comment on above: Order Comment: CBCD AND CMP RESULTS ALSO GO TO [facility] Performed By: #### L 503.6030, L3100.2300, L100.9950, L503.6550, L503.0106, L500.4050, L100.0100 ####[facility] [address] [place], [address] Absolute Neut 2.6 X10 3/uL Normal 2.0-7.7 [facility] Comment on above: Order Comment: CBCD AND CMP RESULTS ALSO GO TO [facility] Performed By: #### L 503.6030, L3100.2300, L100.9950, L503.6550, L503.0106, L500.4050, L100.0100 ####[facility] [address] [place], [address] Basophils/100 WBC (Bld) 1.9 % High 0-1 [facility] Comment on above: Order Comment: CBCD AND CMP RESULTS ALSO GO TO [facility] Performed By: #### L 503.6030, L3100.2300, L100.9950, L503.6550, L503.0106, L500.4050, L100.0100 ####[facility] [address] [place], [address] Eosinophils/100 WBC (Bld) 1.7 % Normal 0-5 [facility] Comment on above: Order Comment: CBCD AND CMP RESULTS ALSO GO TO [facility] Performed By: #### L 503.6030, L3100.2300, L100.9950, L503.6550, L503.0106, L500.4050, L100.0100 ####[facility] [address] [place], [address] Erythrocyte distribution width (RBC) [Ratio] 16.6 % High 11.6-14.6 [facility] Comment on above: Order Comment: CBCD AND CMP RESULTS ALSO GO TO [facility] Performed By: #### L 503.6030, L3100.2300, L100.9950, L503.6550, L503.0106, L500.4050, L100.0100 ####[facility] [address] [facility] [place], [address]( Hematocrit (Bld) [Volume fraction] 33.4 % Low 40-54 [facility] Comment on above: Order Comment: CBCD AND CMP RESULTS ALSO GO TO [facility] Performed By: #### L 503.6030, L3100.2300, L100.9950, L503.6550, L503.0106, L500.4050, L100.0100 ####[facility] [address] [facility] [place], [address] Hemoglobin (Bld) [Mass/Vol] 10.6 g/dL Low 13.0-16.5 [facility] Comment on above: Order Comment: CBCD AND CMP RESULTS ALSO GO TO [facility] Performed By: #### L 503.6030, L3100.2300, L100.9950, L503.6550, L503.0106, L500.4050, L100.0100 ####[facility] [address] [facility] [place], [address] IG% 2.200 High 0.0-0.9 [facility] Comment on above: Order Comment: CBCD AND CMP RESULTS ALSO GO TO [facility] Result Comment: IG% - Immature Granulocytes (promyelocytes, myelocytes andmetamyelocytes) > 1% indicates that a LEFT SHIFT is Present. Performed By: #### L 503.6030, L3100.2300, L100.9950, L503.6550, L503.0106, L500.4050, L100.0100 ####[facility] [address] [place], [address] Lymphocytes/100 WBC (Bld) 22.7 % Normal 19-41 [facility] Comment on above: Order Comment: CBCD AND CMP RESULTS ALSO GO TO [facility] Performed By: #### L 503.6030, L3100.2300, L100.9950, L503.6550, L503.0106, L500.4050, L100.0100 ####[facility] [address] [facility] [place], [address] MCH (RBC) [Entitic mass] 31.5 pg Normal 27.0-32.0 [facility] Comment on above: Order Comment: CBCD AND CMP RESULTS ALSO GO TO [facility] Performed By: #### L 503.6030, L3100.2300, L100.9950, L503.6550, L503.0106, L500.4050, L100.0100 ####[facility] [address] [facility] [place], [address] MCHC (RBC) [Mass/Vol] 31.7 g/dL Low 32-36 [facility] Comment on above: Order Comment: CBCD AND CMP RESULTS ALSO GO TO [facility] Performed By: #### L 503.6030, L3100.2300, L100.9950, L503.6550, L503.0106, L500.4050, L100.0100 ####[facility] [address] [facility] [place], [address] MCV (RBC) [Entitic vol] 99.1 fL High 80-94 [facility] Comment on above: Order Comment: CBCD AND CMP RESULTS ALSO GO TO [facility] Performed By: #### L 503.6030, L3100.2300, L100.9950, L503.6550, L503.0106, L500.4050, L100.0100 ####[facility] [address] [place], [address] Monocytes/100 WBC (Bld) 9.4 % Normal 0-10 [facility] Comment on above: Order Comment: CBCD AND CMP RESULTS ALSO GO TO [facility] Performed By: #### L 503.6030, L3100.2300, L100.9950, L503.6550, L503.0106, L500.4050, L100.0100 ####[facility] [address] [place], [address] Neutrophils/100 WBC (Bld) 62.1 % Normal 47-70 [facility] Comment on above: Order Comment: CBCD AND CMP RESULTS ALSO GO TO [facility] Performed By: #### L 503.6030, L3100.2300, L100.9950, L503.6550, L503.0106, L500.4050, L100.0100 ####[facility] [address] [place], [address] Nucleated RBC (Bld) [#/Vol] 0 10*3/uL Normal 0-5 [facility] Comment on above: Order Comment: CBCD AND CMP RESULTS ALSO GO [facility] Performed By: #### L 503.6030, L3100.2300, L100.9950, L503.6550, L503.0106, L500.4050, L100.0100 ####[facility] [address] [place], [address] Platelet mean volume (Bld) [Entitic vol] 10.2 fL Normal 6.2-12.0 [facility] Comment on above: Order Comment: CBCD AND CMP RESULTS ALSO GO [facility] Performed By: #### L 503.6030, L3100.2300, L100.9950, L503.6550, L503.0106, L500.4050, L100.0100 ####[facility] [address] [place], [address] Platelets (Bld) [#/Vol] 490 10*3/uL High 150-450 [facility] Comment on above: Order Comment: CBCD AND CMP RESULTS ALSO GO [facility] Performed By: #### L 503.6030, L3100.2300, L100.9950, L503.6550, L503.0106, L500.4050, L100.0100 ####[facility] [address] [place], [address] RBC (Bld) [#/Vol] 3.37 10*6/uL Low 4.6-6.2 [facility] Comment on above: Order Comment: CBCD AND CMP RESULTS ALSO GO [facility] Performed By: #### L 503.6030, L3100.2300, L100.9950, L503.6550, L503.0106, L500.4050, L100.0100 ####[facility] [address] [place], [address] RDW SD 60.8 fl High 35.1-43.9 [facility] Comment on above: Order Comment: CBCD AND CMP RESULTS ALSO GO [facility] Performed By: #### L 503.6030, L3100.2300, L100.9950, L503.6550, L503.0106, L500.4050, L100.0100 ####[facility] [address] [place], [address] WBC (Bld) [#/Vol] 4.1 10*3/uL Low 4.4-11.0 [facility] Comment on above: Order Comment: CBCD AND CMP RESULTS ALSO GO [facility] Performed By: #### L 503.6030, L3100.2300, L100.9950, L503.6550, L503.0106, L500.4050, L100.0100 ####[facility] [address] [place], [address] Comprehensive Metabolic Prof ilon 08-11-2024 Albumin [Mass/Vol] 4.0 g/dL Normal 3.4-4.8 [facility] Comment on above: Order Comment: CBCD AND CMP RESULTS ALSO GO Performed By: #### L 503.6030, L3100.2300, L100.9950, L503.6550, L503.0106, L500.4050, L100.0100 ####[facility] [address] [place], [address] Albumin/Globulin [Mass ratio] 1.4 {ratio} Normal 0.9-2.4 [facility] Comment on above: Order Comment: CBCD AND CMP RESULTS ALSO GO Performed By: #### L 503.6030, L3100.2300, L100.9950, L503.6550, L503.0106, L500.4050, L100.0100 ####[facility] [address] [place], [address] ALK PHOS 321 U/L High 40-129 [facility] Comment on above: Order Comment: CBCD AND CMP RESULTS ALSO GO Performed By: #### L 503.6030, L3100.2300, L100.9950, L503.6550, L503.0106, L500.4050, L100.0100 ####[facility] [address] [place], [address] ALT [Catalytic activity/Vol] 58 U/L High <=46 [facility] Comment on above: Order Comment: CBCD AND CMP RESULTS ALSO GO Performed By: #### L 503.6030, L3100.2300, L100.9950, L503.6550, L503.0106, L500.4050, L100.0100 ####[facility] [address] [place], [address] AST [Catalytic activity/Vol] 35 U/L Normal <=37 [facility] Comment on above: Order Comment: CBCD AND CMP RESULTS ALSO GO Performed By: #### L 503.6030, L3100.2300, L100.9950, L503.6550, L503.0106, L500.4050, L100.0100 ####[facility] [address] [place], [address] Bilirubin [Mass/Vol] 0.33 mg/dL Normal 0.00-1.30 [facility] Comment on above: Order Comment: CBCD AND CMP RESULTS ALSO GO Performed By: #### L 503.6030, L3100.2300, L100.9950, L503.6550, L503.0106, L500.4050, L100.0100 ####[facility] [address] [place], [address] BUN/CRE 26.2 RATIO High 10-20 [facility] Comment on above: Order Comment: CBCD AND CMP RESULTS ALSO GO Performed By: #### L 503.6030, L3100.2300, L100.9950, L503.6550, L503.0106, L500.4050, L100.0100 ####[facility] [address] [place], [address] Calcium [Mass/Vol] 9.5 mg/dL Normal 7.6-11.0 [facility] Comment on above: Order Comment: CBCD AND CMP RESULTS ALSO GO Performed By: #### L 503.6030, L3100.2300, L100.9950, L503.6550, L503.0106, L500.4050, L100.0100 ####[facility] [address] [place], [address] Chloride [Moles/Vol] 103 mmol/L Normal 98-108 [facility] Comment on above: Order Comment: CBCD AND CMP RESULTS ALSO GO Performed By: #### L 503.6030, L3100.2300, L100.9950, L503.6550, L503.0106, L500.4050, L100.0100 ####[facility] [address] [place], [address] CO2 [Moles/Vol] 25.5 mmol/L Normal 21.0-32.0 [facility] Comment on above: Order Comment: CBCD AND CMP RESULTS ALSO GO Performed By: #### L 503.6030, L3100.2300, L100.9950, L503.6550, L503.0106, L500.4050, L100.0100 ####[facility] [address] [place], [address] Creatinine [Mass/Vol] 0.85 mg/dL Normal 0.70-1.20 [facility] Comment on above: Order Comment: CBCD AND CMP RESULTS ALSO GO Performed By: #### L 503.6030, L3100.2300, L100.9950, L503.6550, L503.0106, L500.4050, L100.0100 ####[facility] [address] [place], [address] GAP 11 Normal 5-15 [facility] Comment on above: Order Comment: CBCD AND CMP RESULTS ALSO GO Performed By: #### L 503.6030, L3100.2300, L100.9950, L503.6550, L503.0106, L500.4050, L100.0100 ####[facility] [address] [place], [address] GFR/1.73 sq M.predicted among non-blacks MDRD (S/P/Bld) [Vol rate/Area] 99 mL/min/{1.73_m2} Normal >60 [facility] Comment on above: Order Comment: CBCD AND CMP RESULTS ALSO GO Result Comment: mL/m in/1.73m2 CKD-EPI Creatinine Equation (2020) Performed By: #### L 503.6030, L3100.2300, L100.9950, L503.6550, L503.0106, L500.4050, L100.0100 ####[facility] [address] [place], [address] Globulin (S) [Mass/Vol] 2.8 g/dL Normal 2.2-4.2 [facility] Comment on above: Order Comment: CBCD AND CMP RESULTS ALSO GO Performed By: #### L 503.6030, L3100.2300, L100.9950, L503.6550, L503.0106, L500.4050, L100.0100 ####[facility] [address] [place], [address] Glucose [Mass/Vol] 88 mg/dL Normal 70-99 [facility] Comment on above: Order Comment: CBCD AND CMP RESULTS ALSO GO Performed By: #### L 503.6030, L3100.2300, L100.9950, L503.6550, L503.0106, L500.4050, L100.0100 ####[facility] [id number] [place], [address] Potassium [Moles/Vol] 4.3 mmol/L Normal 3.3-5.1 [facility] Comment on above: Order Comment: CBCD AND CMP RESULTS ALSO GO Performed By: #### L 503.6030, L3100.2300, L100.9950, L503.6550, L503.0106, L500.4050, L100.0100 ####[facility] [address] [place], [address] Sodium [Moles/Vol] 140 mmol/L Normal 133-145 [facility] Comment on above: Order Comment: CBCD AND CMP RESULTS ALSO GO Performed By: #### L 503.6030, L3100.2300, L100.9950, L503.6550, L503.0106, L500.4050, L100.0100 ####[facility] [address] [place], [address] T PROT 6.7 g/dL Normal 5.9-8.4 [facility] Comment on above: Order Comment: CBCD AND CMP RESULTS ALSO GO Performed By: #### L 503.6030, L3100.2300, L100.9950, L503.6550, L503.0106, L500.4050, L100.0100 ####[facility] [address] [facility] [place], [address] Urea nitrogen [Mass/Vol] 22 mg/dL High 4-19 [facility] Comment on above: Order Comment: CBCD AND CMP RESULTS ALSO GO Performed By: #### L 503.6030, L3100.2300, L100.9950, L503.6550, L503.0106, L500.4050, L100.0100 ####[facility] [address] [place], [address] Gamma glutamyl transferase ( GGT) measurementon 08-11-2024 Amylase [Catalytic activity/Vol] 156 U/L High 0-65 [facility] Comment on above: Performed at: - L [address] [id number] Director: Sergio Machado MD, Phone: [phone] at: - [facility] [address] [id number] Director: Red Graham PhD, Phone: [phone] Iron measurement (mass/mass) Ordered By: Robe Zavala on 08-11-2024 Iron (Unsp spec) [Mass/Mass] 47 ug/dL Low 65-175 [facility] Iron+Iron Binding Capacityon 08-11-2024 Iron [Mass/Vol] 47 ug/dL Low 65-175 [facility] Comment on above: Order Comment: CBCD AND CMP RESULTS ALSO GO Performed By: #### L 503.6030, L3100.2300, L100.9950, L503.6550, L503.0106, L500.4050, L100.0100 ####[facility] [address] [place], [address] IRON SATURATION 18.0 Normal 9-55 [facility] Comment on above: Order Comment: CBCD AND CMP RESULTS ALSO GO Performed By: #### L 503.6030, L3100.2300, L100.9950, L503.6550, L503.0106, L500.4050, L100.0100 ####[facility] [address] [place], [address] TIBC 264 ug/dL Normal 250-450 [facility] Comment on above: Order Comment: CBCD AND CMP RESULTS ALSO GO Performed By: #### L 503.6030, L3100.2300, L100.9950, L503.6550, L503.0106, L500.4050, L100.0100 ####[facility] [address] [place], [address] UIBC 217 ug/dL Low 228-428 [facility] Comment on above: Order Comment: CBCD AND CMP RESULTS ALSO GO Performed By: #### L 503.6030, L3100.2300, L100.9950, L503.6550, L503.0106, L500.4050, L100.0100 ####[facility] [address] [place], [address] Magnesiumon 08-11-2024 Magnesium [Mass/Vol] 1.7 mg/dL Normal 1.5-2.2 [facility] Comment on above: Performed By: #### L 3410.9992, L501.4700, L501.2300, L3380.1000, L501.5200, L501.5101 ####[facility] [address] [place], [place], [id number] No Panel InformationOrdered By: Robe Zavala on 08-11-2024 Unsaturated Iron Binding Capacity 217 ug/dL Low 228-428 [facility] Phosphoruson 08-11-2024 Phosphate [Mass/Vol] 3.4 mg/dL Normal 2.7-4.5 [facility] Comment on above: Performed By: #### L 3410.9992, L501.4700, L501.2300, L3380.1000, L501.5200, L501.5101 ####[facility] [address] [place], [place], [id number] Retic Panelon 08-11-2024 IM RET FRACTION 14.80 Normal 3.00-15.90 [facility] Comment on above: Order Comment: CBCD AND CMP RESULTS ALSO GO TO [facility] Performed By: #### L 503.6030, L3100.2300, L100.9950, L503.6550, L503.0106, L500.4050, L100.0100 ####[facility] [address] [place], [place], [id number] RET-HE 35.3 pg High 30-35 [facility] Comment on above: Order Comment: CBCD AND CMP RESULTS ALSO GO TO [facility] Performed By: #### L 503.6030, L3100.2300, L100.9950, L503.6550, L503.0106, L500.4050, L100.0100 ####[facility] [address] [place], [place], [id number] Retic Count 1.42 Normal 0.5-1.5 [facility] Comment on above: Order Comment: CBCD AND CMP RESULTS ALSO GO TO [facility] Performed By: #### L 503.6030, L3100.2300, L100.9950, L503.6550, L503.0106, L500.4050, L100.0100 ####[facility] [address] [place], [address] Reticulocyte hemoglobin equi valent (RET-He) measurementOrdered By: Robe Zavala on 08-11-2024 Hemoglobin (Reticulocytes) [Entitic mass] 35.3 pg High 30-35 [facility] Reticulocytes Auto (Bld) [#/ Vol]Ordered By: Robe Zavala on 08-11-2024 Reticulocytes/100 RBC (Bld) 1.42 % 0.5-1.5 [facility] Serum or plasma carcinoembry onic antigen measurement (mass/volume)Ordered By: Robe Zavala on 08-11-2024 Carcinoembryonic Ag [Mass/Vol] 1.7 ng/mL 0.0-4.7 [facility] Comment on above: Nonsmokers <3.9 Smok ers <5.6[employer] Electrochemiluminescence Immunoassay(ECLIA)Values obtained with different assay methods or kitscannot be used interchangeably. Results cannot beinterpreted as absolute evidence of the presence orabsence of malignant disease.Performed at: [facility] [place] [id number] Director: Red Graham PhD, Phone: [phone] Serum or plasma ferritin timmy surement (mass/volume)Ordered By: Robe Zavala on 08-11-2024 Ferritin [Mass/Vol] 226 ng/mL Normal 37-417 [facility] Comment on above: Order Comment: CBCD AND CMP RESULTS ALSO GO Performed By: #### L 503.6030, L3100.2300, L100.9950, L503.6550, L503.0106, L500.4050, L100.0100 ####[facility] [address] [place], [place], [phone] Serum or plasma iron saturat ion measurement (mass fraction)Ordered By: Robe Zavala on 08-11-2024 Iron saturation [Mass fraction] 18.0 % 9-55 [facility] Vitamin B12 ser/plasOrdered By: Robe Zavala on 08-11-2024 Cobalamin (Vitamin B12) [Mass/Vol] 1699 pg/mL High 180-914 [facility] Comment on above: Order Comment: CBCD AND CMP RESULTS ALSO GO Performed By: #### L 503.6030, L3100.2300, L100.9950, L503.6550, L503.0106, L500.4050, L100.0100 ####[facility] [address] [place], [address] ALLOSCREEN RECIPIENT (POST T X PRA)on 08-09-2024 AB SPECIFICITY CLASS COMMENT Antibody Specificity testing performed by [employer]. cPRA calculation based on identification of HLA antibody specificities at MFI >2000 and/or presence of CREG antibodies. Normal [facility] Comment on above: Result Comment: Some of the reagents used for testing in the Clinical Histocompatibility Laboratory have yet to be approved by the FDA. Our certification by CLIA to perform high complexity tests allows us to use these reagents in the context of a stringent QCprogram, and obviates the need for FDA approval.Testing performed by the [facility] Clinical Histocompatibility Laboratory. [facility] number: [id number]. CLIA number: [id number], Director: Urban Millard, PhD, F([facility]). Performed By: #### A LLOR ####[facility] (DEFAULT)[address] [place] [address] ANTIBODY SPECIFICITY INTERPRETATION Detected Normal [facility] Comment on above: Performed By: #### A LLOR ####[facility] (DEFAULT)[address] [place] [address], [place] [address] CLASS I SPECIFICITIES Not detected Normal O [facility] Comment on above: Performed By: #### A LLOR ####[facility] (DEFAULT)[address] [place] [address] CLASS II SPECIFICITIES Not detected Normal [facility] Comment on above: Performed By: #### A LLOR ####[facility] (DEFAULT)[address] [place] [address] cPRA 0 % Normal 0 [facility] Comment on above: Performed By: #### A LLOR ####[facility] (DEFAULT)[address] [place] [address] CALCIUMon 08-09-2024 Calcium [Mass/Vol] 8.7 mg/dL 8.6 - 10. 5 mg/dL [facility] Calcium [Mass/Vol] 8.7 mg/dL Normal 8.6-10.5 [facility] Comment on above: Performed By: #### I PB, HFP, CHM7, MGO, CA ####[facility] (DEFAULT)[address] [place] [address] CBC AND ELECTRONIC DIFFon Erythrocyte distribution width (RBC) [Ratio] 16.4 % High 10.9 - 14.3 % [facility] Hematocrit (Bld) [Volume fraction] 31.6 % Low 39.6 - 48.8 % [facility] Hemoglobin (Bld) [Mass/Vol] 9.9 g/dL Low 13.4 - 16.8 g/dL [facility] MCH (RBC) [Entitic mass] 30.9 pg 26.1 - 33.3 pg [facility] MCHC (RBC) [Mass/Vol] 31.3 g/dL Low 31.9 - 36.5 g/dL [facility] MCV (RBC) [Entitic vol] 98.8 fL High 79.0 - 94.5 fL [facility] Platelet mean volume (Bld) [Entitic vol] 10.5 fL 8.7 - 12.3 fL [facility] Platelets (Bld) [#/Vol] 450 10*3/uL High 146 - 337 K/uL [facility] RBC (Bld) [#/Vol] 3.2 10*6/uL Low [facility] WBC (Bld) [#/Vol] 4.87 10*3/uL 3.73 - 10. 10 K/uL [facility] Hematocrit (Bld) [Volume fraction] 31.6 % Low 39.6-48.8 [facility] Comment on above: Performed By: #### L AB980 ####[facility] (DEFAULT)[address] [place] [address] Hemoglobin (Bld) [Mass/Vol] 9.9 g/dL Low 13.4-16.8 [facility] Comment on above: Performed By: #### L AB980 ####[facility] (DEFAULT)[address] [place] [address], [place] [address] MCV (RBC) [Entitic vol] 98.8 fL High 79.0-94.5 [facility] Comment on above: Performed By: #### L AB980 ####[facility] (DEFAULT)[address] [place] [address] Mean Cell Hgb 30.9 pg Normal 26.1-33.3 [facility] Comment on above: Performed By: #### L AB980 ####[facility] (DEFAULT)[address] [place] [address] Mean Cell Hgb Conc 31.3 g/dL Low 31.9-36.5 [facility] Comment on above: Performed By: #### L AB980 ####[facility] (DEFAULT)[address] [place] [address] Platelet mean volume (Bld) [Entitic vol] 10.5 fL Normal 8.7-12.3 [facility] Comment on above: Performed By: #### L AB980 ####[facility] (DEFAULT)[address] [place] [address], [place] [address] Platelets (Bld) [#/Vol] 450 10*3/uL High 146-337 [facility] Comment on above: Performed By: #### L AB980 ####[facility] (DEFAULT)[address] [place] [address] [place] [address] RBC (Bld) [#/Vol] 3.20 10*6/uL Low 4.38-5.83 [facility] Comment on above: Performed By: #### L AB980 ####[facility] (DEFAULT)[address] [place] [address] RBC Distribution 16.4 % High 10.9-14.3 [facility] Comment on above: Performed By: #### L AB980 ####[facility] (DEFAULT)[address] [place] [address] WBC (Bld) [#/Vol] 4.87 10*3/uL Normal 3.73-10.10 [facility] Comment on above: Performed By: #### L AB980 ####[facility] (DEFAULT)[address] [place] [address] CHEM 7 (LYTES,BUN,CREA,GLUC) on 08-09-2024 Anion gap [Moles/Vol] 12 mmol/L 7 - 17 mmol/L [facility] Chloride [Moles/Vol] 105 mmol/L 98 - 10 8 mmol/L [facility] CO2 [Moles/Vol] 25 mmol/L 21 - 31 mmol/L [facility] Creatinine [Mass/Vol] 0.69 mg/dL Low 0.70 - 1.30 mg/dL [facility] eGFR, CKD-EPI, Male - PINF [facility] Comment on above: Reported eGFR is bas ed on the CKD-EPI 2020 equation using creatinine, age, and sex. Glucose [Mass/Vol] 76 mg/dL 70 - 179 mg/dL [facility] Osmolality Calc [Osmolality] 293 [facility] Potassium [Moles/Vol] 4.4 mmol/L 3.5 - 5.0 mmol/L [facility] Sodium [Moles/Vol] 138 mmol/L 135 - 145 mmol/L [facility] Urea nitrogen [Mass/Vol] 25 mg/dL 7 - 25 mg/dL [facility] Urea nitrogen/Creatinine [Mass ratio] 36 mg/mg [facility] Anion gap [Moles/Vol] 12 mmol/L Normal 7-17 [facility] Comment on above: Performed By: #### I PB, HFP, CHM7, MGO, CA ####[facility] (DEFAULT)[address] [place] [address] Chloride [Moles/Vol] 105 mmol/L Normal 98-108 [facility] Comment on above: Performed By: #### I PB, HFP, CHM7, MGO, CA ####[facility] (DEFAULT)[address] [place] [address] CO2 [Moles/Vol] 25 mmol/L Normal 21-31 [facility] Comment on above: Performed By: #### I PB, HFP, CHM7, MGO, CA ####[facility] (DEFAULT)[address] [place] [address] Creatinine [Mass/Vol] 0.69 mg/dL Low 0.70-1.30 [facility] Comment on above: Performed By: #### I PB, HFP, CHM7, MGO, CA ####[facility] (DEFAULT)[address] [place] [address] eGFR, CKD-EPI, Male > Normal >=60 [facility] Comment on above: Result Comment: Repo rted eGFR is based on the CKD-EPI 2020 equation using creatinine, age, and sex. Performed By: #### I PB, HFP, CHM7, MGO, CA ####[facility] (DEFAULT)[address] [place] [address] Glucose [Mass/Vol] 76 mg/dL Normal Nonfastin -179 mg/dL; Fastin-99 [facility] Comment on above: Performed By: #### I PB, HFP, CHM7, MGO, CA ####[facility] (DEFAULT)[address] [place] [address] Osmolality [Osmolality] 293 mosm/kg Normal 278-305 [facility] Comment on above: Performed By: #### I PB, HFP, CHM7, MGO, CA ####[facility] (DEFAULT)[address] [place] [address] Potassium [Moles/Vol] 4.4 mmol/L Normal 3.5-5.0 [facility] Comment on above: Performed By: #### I PB, HFP, CHM7, MGO, CA ####[facility] (DEFAULT)[address] [place] [address] Sodium [Moles/Vol] 138 mmol/L Normal 135-145 [facility] Comment on above: Performed By: #### I PB, HFP, CHM7, MGO, CA ####[facility] (DEFAULT)[address] [place] [address] Urea nitrogen [Mass/Vol] 25 mg/dL Normal 7-25 [facility] Comment on above: Performed By: #### I PB, HFP, CHM7, MGO, CA ####[facility] (DEFAULT)[address] [place] [address] Urea nitrogen/Creatinine [Mass ratio] 36 mg/mg Normal [facility] Comment on above: Performed By: #### I PB, HFP, CHM7, MGO, CA ####[facility] (DEFAULT)[address] [place] [address] CT ABDOMINAL/RETROPERITONEAL /VISCERAL MASS BIOPSYon 08-09-2024 CT ABDOMINAL/RETROPERITO ALYSON/VISCERAL MASS BIOPSY Normal [facility] CT CHEST WITHOUT CONTRASTon 08-09-2024 CT CHEST WITHOUT CONTRAST Normal [facility] CT Chest WO contraston 08-09 IMPRESSION: [...] and Soft Tissue: Normal Additional Findings: None. Marketing Communications Specialist: Marketing Communications Specialist imaging reveals no thoracic abnormalities not already [...] and Soft Tissue: Normal Additional Findings: None. Marketing Communications Specialist: Marketing Communications Specialist imaging reveals no thoracic abnormalities not already visible on the cross-section images. IMPRESSION IMPRESSION: No findings of [facility] disease[facility] WO contrastOrdered By: Micha Reed on 08-09-2024 [facility] Work Phone: CT Guidance for biopsy of [...] Versed, I spent 15 minutes of continuous ptcr-rc-vooy time with the patient. Position: The patient [...] Versed, I spent 15 minutes of continuous lnnv-ar-vtit time with the patient. Position: The patient [...] during all [place] portions of this procedure. [facility] Radiology Study observation (narrative) [facility] GENERAL PROCEDUREon 08-10-19 25 Nestor Hernandez MD - 08/09/2024 3:08 PM EDT BODY INTERVENTIONAL RADIOLOGY PROCEDURE NOTE PROCEDURE INDICATION: Pelvic mass PROCEDURE PERFORMED: CT guided needle biopsy. FINDINGS/TARGET: Left perirectal mass SPECIMEN: 18 gauge core needle biopsy passes x 5 DISPOSITION OF SPECIMEN(S): Pathology PLAN: Patient to recovery. Nestor Hernandez MD 08/09/2024 3:08 PM JIGSAWYER(S): Nestor Hernandez MD. CONSENT: Informed consent was obtained prior to the procedure after discussion of the risks, benefits, and alternatives of the procedure, and expected procedure outcomes were discussed with the patient and/or outbound call center representative. The consent document was placed in chart. DID THIS PROCEDURE REQUIRE A UNIVERSAL PROTOCOL?: Yes. [place] Protocol is required. Preprocedure verification is complete. [...] Interventional Radiology to participate in this patient's [facility] Radiology Study observation (narrative) [facility] HEPATIC FUNCTION PANELon Albumin [Mass/Vol] 3.5 g/dL 3.5 - 5.0 g/dL [facility] ALP [Catalytic activity/Vol] 241 U/L High 32 - 126 U/L [facility] ALT [Catalytic activity/Vol] 39 U/L 10 - 52 U/L [facility] AST [Catalytic activity/Vol] 31 U/L 10 - 39 U/L [facility] Bilirubin [Mass/Vol] 0.2 mg/dL NINF - 1.5 mg/dL [facility] Bilirubin.direct [Mass/Vol] 0.1 mg/dL NINF - 0.3 mg/dL [facility] Protein [Mass/Vol] 6.2 g/dL Low 6.4 - 8.3 g/dL [facility] Albumin [Mass/Vol] 3.5 g/dL Normal 3.5-5.0 [facility] Comment on above: Performed By: #### I PB, HFP, CHM7, MGO, CA ####[facility] (DEFAULT)[address] [place] [address] ALP [Catalytic activity/Vol] 241 U/L High 32-126 [facility] Comment on above: Performed By: #### I PB, HFP, CHM7, MGO, CA ####[facility] (DEFAULT)[address] [place] [address] ALT [Catalytic activity/Vol] 39 U/L Normal 10-52 [facility] Comment on above: Performed By: #### I PB, HFP, CHM7, MGO, CA ####[facility] (DEFAULT)[address] [place] [address] AST [Catalytic activity/Vol] 31 U/L Normal 10-39 [facility] Comment on above: Performed By: #### I PB, HFP, CHM7, MGO, CA ####[facility] (DEFAULT)[address] [place] [address] Bilirubin [Mass/Vol] 0.2 mg/dL Normal <1.5 [facility] Comment on above: Performed By: #### I PB, HFP, CHM7, MGO, CA ####[facility] (DEFAULT)[address] [place] [address] Bilirubin.indirect [Mass/Vol] 0.1 mg/dL Normal <0.3 [facility] Comment on above: Performed By: #### I PB, HFP, CHM7, MGO, CA ####[facility] (DEFAULT)[address] [place] [address] Protein [Mass/Vol] 6.2 g/dL Low 6.4-8.3 [facility] Comment on above: Performed By: #### I PB, HFP, CHM7, MGO, CA ####[facility] (DEFAULT)[address] [place] [address] MAGNESIUMon 08-09-2024 Magnesium [Mass/Vol] 1.6 mg/dL 1.6 - 2 .6 mg/dL [facility] Magnesium [Mass/Vol] 1.6 mg/dL Normal 1.6-2.6 [facility] Comment on above: Performed By: #### I PB, HFP, CHM7, MGO, CA ####[facility] (DEFAULT)[address] [place] [address] MANUAL DIFFon 08-09-2024 Band form neutrophils/100 WBC (Bld) 0 % [facility] Basophils (Bld) [#/Vol] 0.08 10*3/uL 0.00 - 0.09 K/uL [facility] Basophils/100 WBC (Bld) 1.7 % [facility] Anbila cells LM Ql (Bld) Present Abnormal (none) [facility] Differential cell count method Nom (Bld) Manual Differential [facility] Eosinophils (Bld) [#/Vol] 0.17 10*3/uL [facility] Eosinophils/100 WBC (Bld) 3.4 % [facility] Lymphocytes (Bld) [#/Vol] 1.26 10*3/uL 0.83 - 3.57 K/uL [facility] Lymphocytes/100 WBC (Bld) 25.9 % [facility] Monocytes (Bld) [#/Vol] 0.55 10*3/uL 0.24 - 0.93 K/uL [facility] Monocytes/100 WBC (Bld) 11.2 % [facility] Neutrophils (Bld) [#/Vol] 2.81 10*3/uL 1.57 - 6.19 K/uL [facility] Ovalocytes LM Ql (Bld) Present Abnormal (none) [facility] Platelet clump LM Ql (Bld) Present Abnormal (none) [facility] Platelets Estimate (Bld) [#/Vol] Automated platelet count confirmed by manual slide review [facility] RBC morphology finding Nom (Bld) RBC INDICES CONFIRMED WITH MANUAL SLIDE REVIEW [facility] Segmented neutrophils/100 WBC (Bld) 57.8 % [facility] No Panel Informationon 08-09 Interpretation and review of laboratory results Abnormal [facility] Interpretation and review of laboratory results Abnormal [facility] Interpretation and review of laboratory results Normal [facility] PHOSPHATE, INORGANICon 08-09 Phosphate [Mass/Vol] 4.1 mg/dL 2.2 - 4 .6 mg/dL [facility] Phosphorous 4.1 mg/dL Normal 2.2-4.6 [facility] Comment on above: Performed By: #### I PB, HFP, CHM7, MGO, [place] ####[facility] (DEFAULT)[address] [place] [address] SURG PATH REQUESTon 08-10-[address] [facility] Comment on above: Result Comment: Surg ical Pathology Report Case: [id number] Provider: Nestor Hernandez MD Collected: 08/09/2024 03:06 PMOrdering [facility] Received: 08/09/2024 03:39 PMPathologist: Alexander Chinchilla MD, PhDSpecimen: SURG PATH, Left posterior hemipelvic mass Performed By: #### S URGP ####[facility] (DEFAULT)[address] [place] [id number] Clinical History Reason For Exam: Lef t hemipelvic mass biopsy. Clinical History: Cancer of sigmoid colon (per chart). Normal [facility] Comment on above: Performed By: #### S URGP ####[facility] (DEFAULT)[address] [place] [id number] Gross Description Normal [facility] Comment on above: Result Comment: The [...] 0.6 cm. TE 2Lab Use Only: JobID [id number] for this case was: Noemy Lanieroya Performed By: #### S URGP ####[facility] (DEFAULT)[address] [place] [address] Microscopic Description [facility] Comment on above: Result Comment: A mi croscopic examination was performed.All controls show appropriate reactivity. All immunohistochemistry (IHC), in situ hybridization (MELA), and histochemical tests were developed by and are performed at the [facility] Clinical Laboratory, Histology and IHC Lab, [address] [place] [address]. All Immunofluorescent (IF) tests were developed by and are performed at the [facility] Clinical Laboratory, Renal Division, [address] [place] [address]. All tests reported here, except for PD-L1, have not been cleared by or approved by the US Food and Drug Administration (FDA). The laboratory is regulated under CLIA as qualified to perform high-complexity testing. The tests are used for clinical purposes. They should not be regarded as investigational or for research. Performed By: #### S URGP ####[facility] (DEFAULT)[address] [place] [address] [facility] Comment on above: Result Comment: A. [...] 1554 EDT Performed By: #### S URGP ####[facility] (DEFAULT)[address] [place] [address] Professional Interpretation Performed at: [facility] Comment on above: Result Comment: [facility] CLINICAL LABORATORYFor Immediate Release to Patient's [facility]? [id number] [address] Performed By: #### S URGP ####[facility] (DEFAULT)[address] [place] [address] TACROLIMUS LEVEL, TROUGH (NE E DRUG LEVEL)on 08-09-2024 Tacrolimus (Bld) [Mass/Vol] 5.9 ng/mL Bone Marrow Transplant: 5.0-15.0 Kidney/Pancre at Transplant: 0 to 3 months: 8.0-10.0, 3 to 12 months: 6.0-8.0, >12 months: 4.0-6.0 [facility] Method performed is a chemiluminescent microparticle immunoasssay on the [employer] i2000. The range is based on experience at [facility] and users should be aware that target concentrations vary widely depending on concomitant therapy, time post-transplant, and desired degree of immunosuppression. [facility] Tacrolimus, Trough 5.9 ng/mL Normal Bone Veronique ow Transplant: 5.0-15.0 Kidney/Pancre at Transplant: 0 to 3 months: 8.0-10.0, 3 to 12 months: 6.0-8.0, >12 months: 4.0-6.0 [facility] Comment on above: Order Comment: Pleas e draw at specified interval PRIOR to dose. Do not hold dose to wait for level. Specimens batched twice per day, (M-F) and once per day weekendsMethod performed is a chemiluminescent microparticle immunoasssay on the [employer] i2000.The range is based on experience at [facility] and users should be aware that target concentrations vary widely depending on concomitant therapy, time post-transplant, and desired degree of immunosuppression. Performed By: #### T ACRO ####[facility] (DEFAULT)[address] [place] [address] B HENSELAE/B FULLER IGG,IG 08-08-2024 B. henselae IgG IF (S) [Titer] <1:128 [facility] B. henselae IgM IF (S) [Titer] <1:20 [facility] B. fuller IgG IF (S) [Titer] <1:128 [facility] B. fuller IgM IF (S) [Titer] <1:20 [facility] Comment on above: ADDITIONAL INFORMATION This test was developed and its performance characteristics determined by [facility] in a manner consistent with CLIA requirements. This test has not been cleared or approved by the U.S. Food and Drug Administration. Test Performed by: [facility] [address] [place] [address] Sand Cutter Operator: Orlando Cruz Ph.D.; CLIA# [id number] [facility] BARTONELLA, DNA, PCR, BLOODo n 08-08-2024 Bartonella sp DNA JACKY+probe Ql (Bld) Negative Not Applicable [facility] Comment on above: ADDITIONAL INFORMATION This test was developed and its performance characteristics determined by [facility] in a manner consistent with CLIA requirements. This test has not been cleared or approved by the U.S. Food and Drug Administration. Test Performed by: [facility] [place] [address] Sand Cutter Operator: Orlando Cruz Ph.D.; CLIA# [id number] Specimen source Nom (Unsp spec) BLOOD [facility] CALCIUMon 08-08-2024 Calcium [Mass/Vol] 8.7 mg/dL 8.6 - 10. 5 mg/dL [facility] Calcium [Mass/Vol] 8.7 mg/dL Normal 8.6-10.5 [facility] Comment on above: Performed By: #### I PB, HFP, CHM7, MGO, CA ####[facility] (DEFAULT)[address] [place] [address] CBC AND ELECTRONIC DIFFon Basophils (Bld) [#/Vol] 0.08 10*3/uL 0.00 - 0.09 K/uL [facility] Basophils/100 WBC (Bld) 2 % [facility] Differential cell count method Nom (Bld) Electronic Differential [facility] Eosinophils (Bld) [#/Vol] 0.11 10*3/uL 0.00 - 0.48 K/uL [facility] Eosinophils/100 WBC (Bld) 2.7 % [facility] Erythrocyte distribution width (RBC) [Ratio] 16.6 % High 10.9 - 14.3 % [facility] Hematocrit (Bld) [Volume fraction] 32.1 % Low 39.6 - 48.8 % [facility] Hemoglobin (Bld) [Mass/Vol] 10.2 g/dL Low 13.4 - 16.8 g/dL [facility] Immature granulocytes (Bld) [#/Vol] 0.06 10*3/uL NINF - 0.07 K/uL [facility] Immature granulocytes/100 WBC (Bld) 1.5 % [facility] Interpretation and review of laboratory results Abnormal [facility] Lymphocytes (Bld) [#/Vol] 1.11 10*3/uL 0.83 - 3.57 K/uL [facility] Lymphocytes/100 WBC (Bld) 27.2 % [facility] MCH (RBC) [Entitic mass] 31.8 pg 26.1 - 33.3 pg [facility] MCHC (RBC) [Mass/Vol] 31.8 g/dL Low 31.9 - 36.5 g/dL [facility] MCV (RBC) [Entitic vol] 100 fL High 79.0 - 94.5 fL [facility] Monocytes (Bld) [#/Vol] 0.52 10*3/uL 0.24 - 0.93 K/uL [facility] Monocytes/100 WBC (Bld) 12.7 % [facility] Neutrophils (Bld) [#/Vol] 2.2 10*3/uL 1.57 - 6.19 K/uL [facility] Nucleated RBC/100 WBC (Bld) [Ratio] 0 % [facility] Platelet mean volume (Bld) [Entitic vol] 10.2 fL 8.7 - 12.3 fL [facility] Platelets (Bld) [#/Vol] 419 10*3/uL High 146 - 337 K/uL [facility] RBC (Bld) [#/Vol] 3.21 10*6/uL Low [facility] Segmented neutrophils/100 WBC (Bld) 53.9 % [facility] WBC (Bld) [#/Vol] 4.08 10*3/uL 3.73 - 10. 10 K/uL [facility] Basophils (Bld) [#/Vol] 0.08 10*3/uL Normal 0.00-0.09 [facility] Comment on above: Performed By: #### L AB980 ####[facility] (DEFAULT)[address] [place] [address] Basophils/100 WBC (Bld) 2.0 % Normal [facility] Comment on above: Performed By: #### L AB980 ####[facility] (DEFAULT)[address] [place] [address] DIFF STATUS Electronic Differential Normal [facility] Comment on above: Performed By: #### L AB980 ####[facility] (DEFAULT)[address] [place] [address] Eosinophils (Bld) [#/Vol] 0.11 10*3/uL Normal 0.00-0.48 [facility] Comment on above: Performed By: #### L AB980 ####[facility] (DEFAULT)[address] [place] [address] Eosinophils/100 WBC (Bld) 2.7 % Normal [facility] Comment on above: Performed By: #### L AB980 ####[facility] (DEFAULT)[address] [place] [address] Hematocrit (Bld) [Volume fraction] 32.1 % Low 39.6-48.8 [facility] Comment on above: Performed By: #### L AB980 ####[facility] (DEFAULT)[address] [place] [address], [place] [address] Hemoglobin (Bld) [Mass/Vol] 10.2 g/dL Low 13.4-16.8 [facility] Comment on above: Performed By: #### L AB980 ####[facility] (DEFAULT)[address] [place] [address] Immature Grans % 1.5 % Normal [facility] Comment on above: Performed By: #### L AB980 ####[facility] (DEFAULT)[address] [place] [address], [place] [address] Immature Grans Absolute 0.06 K/uL Normal <=0.07 [facility] Comment on above: Performed By: #### L AB980 ####[facility] (DEFAULT)[address] [place] [address], [place] [address] Lymphocytes (Bld) [#/Vol] 1.11 10*3/uL Normal 0.83-3.57 [facility] Comment on above: Performed By: #### L AB980 ####[facility] (DEFAULT)[address] [place] [address], [place] [address] Lymphocytes/100 WBC (Bld) 27.2 % Normal [facility] Comment on above: Performed By: #### L AB980 ####[facility] (DEFAULT)[address] [place] [address] MCV (RBC) [Entitic vol] 100.0 fL High 79.0-94.5 [facility] Comment on above: Performed By: #### L AB980 ####[facility] (DEFAULT)[address] [place] [address] Mean Cell Hgb 31.8 pg Normal 26.1-33.3 [facility] Comment on above: Performed By: #### L AB980 ####[facility] (DEFAULT)[address] [place] [address] Mean Cell Hgb Conc 31.8 g/dL Low 31.9-36.5 [facility] Comment on above: Performed By: #### L AB980 ####[facility] (DEFAULT)[address] [place] [address] Monocytes (Bld) [#/Vol] 0.52 10*3/uL Normal 0.24-0.93 [facility] Comment on above: Performed By: #### L AB980 ####[facility] (DEFAULT)[address] [place] [address] Monocytes/100 WBC (Bld) 12.7 % Normal [facility] Comment on above: Performed By: #### L AB980 ####[facility] (DEFAULT)[address] [place] [address] Nucleated RBC 0.0 /100 WBC Normal <=0.2 [facility] Comment on above: Performed By: #### L AB980 ####[facility] (DEFAULT)[address] [place] [address] Platelet mean volume (Bld) [Entitic vol] 10.2 fL Normal 8.7-12.3 [facility] Comment on above: Performed By: #### L AB980 ####[facility] (DEFAULT)[address] [place] [address] Platelets (Bld) [#/Vol] 419 10*3/uL High 146-337 [facility] Comment on above: Performed By: #### L AB980 ####[facility] (DEFAULT)[address] [place] [address] RBC (Bld) [#/Vol] 3.21 10*6/uL Low 4.38-5.83 [facility] Comment on above: Performed By: #### L AB980 ####[facility] (DEFAULT)[address] [place] [address] RBC Distribution 16.6 % High 10.9-14.3 [facility] Comment on above: Performed By: #### L AB980 ####[facility] (DEFAULT)[address] [place] [address] Segs + Bands Auto 53.9 % Normal [facility] Comment on above: Performed By: #### L AB980 ####[facility] (DEFAULT)[address] [place] [address] Segs + Bands,Absolute Auto 2.20 K/uL Normal 1.57-6.19 [facility] Comment on above: Performed By: #### L AB980 ####[facility] (DEFAULT)[address] [place] [address] WBC (Bld) [#/Vol] 4.08 10*3/uL Normal 3.73-10.10 [facility] Comment on above: Performed By: #### L AB980 ####[facility] (DEFAULT)[address] [place] [address] CHEM 7 (LYTES,BUN,CREA,GLUC) on 08-08-2024 Anion gap [Moles/Vol] 12 mmol/L 7 - 17 mmol/L [facility] Chloride [Moles/Vol] 106 mmol/L 98 - 10 8 mmol/L [facility] CO2 [Moles/Vol] 26 mmol/L 21 - 31 mmol/L [facility] Creatinine [Mass/Vol] 0.75 mg/dL 0.70 - 1.30 mg/dL [facility] eGFR, CKD-EPI, Male - PINF [facility] Comment on above: Reported eGFR is bas ed on the CKD-EPI 2020 equation using creatinine, age, and sex. Glucose [Mass/Vol] 84 mg/dL 70 - 179 mg/dL [facility] Osmolality Calc [Osmolality] 297 [facility] Potassium [Moles/Vol] 4.1 mmol/L 3.5 - 5.0 mmol/L [facility] Sodium [Moles/Vol] 140 mmol/L 135 - 145 mmol/L [facility] Urea nitrogen [Mass/Vol] 26 mg/dL High 7 - 25 mg/dL [facility] Urea nitrogen/Creatinine [Mass ratio] 35 mg/mg [facility] Anion gap [Moles/Vol] 12 mmol/L Normal 7-17 [facility] Comment on above: Performed By: #### I PB, HFP, CHM7, MGO, CA ####[facility] (DEFAULT)[address] [place] [address] Chloride [Moles/Vol] 106 mmol/L Normal 98-108 [facility] Comment on above: Performed By: #### I PB, HFP, CHM7, MGO, CA ####[facility] (DEFAULT)[address] [place] [address] CO2 [Moles/Vol] 26 mmol/L Normal 21-31 [facility] Comment on above: Performed By: #### I PB, HFP, CHM7, MGO, CA ####[facility] (DEFAULT)[address] [place] [address] Creatinine [Mass/Vol] 0.75 mg/dL Normal 0.70-1.30 [facility] Comment on above: Performed By: #### I PB, HFP, CHM7, MGO, CA ####[facility] (DEFAULT)[address] [place] [address] eGFR, CKD-EPI, Male > Normal >=60 [facility] Comment on above: Result Comment: Repo rted eGFR is based on the CKD-EPI 2020 equation using creatinine, age, and sex. Performed By: #### I PB, HFP, CHM7, MGO, CA ####[facility] (DEFAULT)[address] [place] [address] Glucose [Mass/Vol] 84 mg/dL Normal Nonfastin -179 mg/dL; Fastin-99 [facility] Comment on above: Performed By: #### I PB, HFP, CHM7, MGO, CA ####[facility] (DEFAULT)[address] [place] [address] Osmolality [Osmolality] 297 mosm/kg Normal 278-305 [facility] Comment on above: Performed By: #### I PB, HFP, CHM7, MGO, CA ####[facility] (DEFAULT)[address] [place] [address] Potassium [Moles/Vol] 4.1 mmol/L Normal 3.5-5.0 [facility] Comment on above: Performed By: #### I PB, HFP, CHM7, MGO, CA ####[facility] (DEFAULT)[address] [place] [address] Sodium [Moles/Vol] 140 mmol/L Normal 135-145 [facility] Comment on above: Performed By: #### I PB, HFP, CHM7, MGO, CA ####[facility] (DEFAULT)[address] [place] [address] Urea nitrogen [Mass/Vol] 26 mg/dL High 7-25 [facility] Comment on above: Performed By: #### I PB, HFP, CHM7, MGO, CA ####[facility] (DEFAULT)[address] [place] [address] Urea nitrogen/Creatinine [Mass ratio] 35 mg/mg Normal [facility] Comment on above: Performed By: #### I PB, HFP, CHM7, MGO, CA ####[facility] (DEFAULT)[address] [place] [address] COXIELLA BURNETII (Q FEVER) PCR, BLOOD 08-08-2024 C. burnetii aroE gene JACKY+non-probe Ql (S/P/Bld) Negative Not Applicable [facility] Comment on above: ADDITIONAL INFORMATION This test was developed and its performance characteristics determined by [facility] in a manner consistent with CLIA requirements. This test has not been cleared or approved by the U.S. Food and Drug Administration. Test Performed by: [facility] [place] [address] Sand Cutter Operator: Orlando Cruz Ph.D.; CLIA# [id number] Specimen source Nom (Unsp spec) [facility]LOOD [facility] Chest WO contraston 08-08 Radiology Study observation (narrative) [facility] EHRLICHIA/ANAPLASMA PCRon A. phagocytophilum groEL gene JACKY+non-probe Ql (Bld) Negative Negative [facility] E. canis+ewingii groEL gene JACKY+non-probe Ql (Bld) Negative Negative [facility] E. chaffeensis groEL gene JACKY+non-probe Ql (Bld) Negative Negative [facility] E. muris eauclairensis groEL gene JACKY+non-probe Ql (Bld) Negative Negative [facility] Comment on above: ADDITIONAL INFORMATION This test was developed and its performance characteristics determined by [facility] in a manner consistent with CLIA requirements. This test has not been cleared or approved by the U.S. Food and Drug Administration. Test Performed by: [facility] [place] [address] Sand Cutter Operator: Orlando Cruz Ph.D.; CLIA# [id number] [facility] HEPATIC FUNCTION PANELon Albumin [Mass/Vol] 3.5 g/dL 3.5 - 5.0 g/dL [facility] ALP [Catalytic activity/Vol] 239 U/L High 32 - 126 U/L [facility] ALT [Catalytic activity/Vol] 30 U/L 10 - 52 U/L [facility] AST [Catalytic activity/Vol] 16 U/L 10 - 39 U/L [facility] Bilirubin [Mass/Vol] 0.3 mg/dL NINF - 1.5 mg/dL [facility] Bilirubin.direct [Mass/Vol] 0.1 mg/dL NINF - 0.3 mg/dL [facility] Protein [Mass/Vol] 6.1 g/dL Low 6.4 - 8.3 g/dL [facility] Albumin [Mass/Vol] 3.5 g/dL Normal 3.5-5.0 [facility] Comment on above: Performed By: #### I PB, HFP, CHM7, MGO, CA ####[facility] (DEFAULT)[address] [place] [address] ALP [Catalytic activity/Vol] 239 U/L High 32-126 [facility] Comment on above: Performed By: #### I PB, HFP, CHM7, MGO, CA ####[facility] (DEFAULT)[address] [place] [address] ALT [Catalytic activity/Vol] 30 U/L Normal 10-52 [facility] Comment on above: Performed By: #### I PB, HFP, CHM7, MGO, CA ####[facility] (DEFAULT)[address] [place] [address] AST [Catalytic activity/Vol] 16 U/L Normal 10-39 [facility] Comment on above: Performed By: #### I PB, HFP, CHM7, MGO, CA ####[facility] (DEFAULT)[address] [place] [address] Bilirubin [Mass/Vol] 0.3 mg/dL Normal <1.5 [facility] Comment on above: Performed By: #### I PB, HFP, CHM7, MGO, CA ####[facility] (DEFAULT)[address] [facility] [place] [address] Bilirubin.indirect [Mass/Vol] 0.1 mg/dL Normal <0.3 [facility] Comment on above: Performed By: #### I PB, HFP, CHM7, MGO, CA ####[facility] (DEFAULT[facility] [place] [address] Protein [Mass/Vol] 6.1 g/dL Low 6.4-8.3 [facility] Comment on above: Performed By: #### I PB, HFP, CHM7, MGO, CA ####[facility] (DEFAULT)[address] [place] [address] HISTOPLASMA AND BLASTOMYCES ANTIGEN, ENZYME IMMUNOASSAY, SERMon 08-08-2024 Histoplasma/Blastomyc es Ag Result Not detected Not Detected [facility] Comment on above: No antigen from Hist oplasma or Blastomyces detected. False negative results may occur depending on extent of disease, and/or site of infection. Repeat testing on a new specimen if clinically indicated. Histoplasma/Blastomyc es Ag Value Not detected ng/mL [facility] Comment on above: ADDITIONAL INFORMATION This test was developed and its performance characteristics determined by [facility] in a manner consistent with CLIA requirements. This test has not been cleared or approved by the U.S. Food and Drug Administration. Test Performed by: [facility] [address] [place] [address] Sand Cutter Operator: Orlando Cruz Ph.D.; CLIA# [id number] [facility] HISTOPLASMA ANTIGEN,URINEOrd ered By: Nathaly Barahona on 08-08-2024 H. capsulatum Ag IA Ql (U) Not detected Not Detected [facility] Comment on above: Histoplasma galactom korey can [...] Interpretation and review of laboratory results Normal [facility] MAGNESIUMon 08-08-2024 Magnesium [Mass/Vol] 1.8 mg/dL 1.6 - 2 .6 mg/dL [facility] Magnesium [Mass/Vol] 1.8 mg/dL Normal 1.6-2.6 [facility] Comment on above: Performed By: #### I PB, HFP, CHM7, MGO, CA ####[facility] (DEFAULT)[address] [place] [address] No Panel Informationon 08-08 Interpretation and review of laboratory results Abnormal [facility] Interpretation and review of laboratory results Normal [facility] PHOSPHATE, INORGANICon 08-08 Phosphate [Mass/Vol] 3.3 mg/dL 2.2 - 4 .6 mg/dL [facility] Phosphorous 3.3 mg/dL Normal 2.2-4.6 [facility] Comment on above: Performed By: #### I PB, HFP, CHM7, MGO, CA ####[facility] (DEFAULT)[address] [place] [address] Q FEVER IGM/IGG, TITER, Son 08-08-2024 C. burnetii phase 1 IgG IF (S) [Titer] <1:16 [facility] C. burnetii phase 1 IgM (S) [Titer] <1:16 [facility] C. burnetii phase 2 IgG IF (S) [Titer] 1:32 Abnormal [facility] C. burnetii phase 2 IgM (S) [Titer] <1:16 [facility] Chemical Test Engineer review Deandre (Unsp spec) [Interp] SEE COMMENTS [facility] Comment on above: Active Q Fever infec [...] titers. Test Performed by: [facility] [address] [place] [address] Sand Cutter Operator: Orlando Cruz Ph.D.; CLIA# [id number] Interpretation and review of laboratory results Abnormal [facility] TACROLIMUS LEVEL, TROUGH (NE E DRUG LEVEL)on 08-08-2024 Tacrolimus (Bld) [Mass/Vol] 5.4 ng/mL Bone Marrow Transplant: 5.0-15.0 Kidney/Pancre atic Transplant: 0 to 3 months: 8.0-10.0, 3 to 12 months: 6.0-8.0, >12 months: 4.0-6.0 [facility] Method performed is a chemiluminescent microparticle immunoasssay on the [employer] i2000. The range is based on experience at [facility] and users should be aware that target concentrations vary widely depending on concomitant therapy, time post-transplant, and desired degree of immunosuppression. [facility] Tacrolimus, Trough 5.4 ng/mL Normal Bone Veronique ow Transplant: 5.0-15.0 Kidney/Pancre atic Transplant: 0 to 3 months: 8.0-10.0, 3 to 12 months: 6.0-8.0, >12 months: 4.0-6.0 [facility] Comment on above: Order Comment: Pleas e draw at specified interval PRIOR to dose. Do not hold dose to wait for level. Specimens batched twice per day, (M-F) and once per day weekendsMethod performed is a chemiluminescent microparticle immunoasssay on the [employer] i2000.The range is based on experience at [facility] and users should be aware that target concentrations vary widely depending on concomitant therapy, time post-transplant, and desired degree of immunosuppression. Performed By: #### T ACRO ####[facility] (DEFAULT)[facility] [address] [place] [address] CALCIUMon 08-07-2024 Calcium [Mass/Vol] 8.9 mg/dL 8.6 - 10. 5 mg/dL [facility] Interpretation and review of laboratory results Normal [facility] Calcium [Mass/Vol] 8.9 mg/dL Normal 8.6-10.5 [facility] Comment on above: Performed By: #### H FP, CHM7, CA, IPB, MGO ####[facility] (DEFAULT)[address] [place] [address] CBC AND ELECTRONIC DIFFon Basophils (Bld) [#/Vol] 0.05 10*3/uL 0.00 - 0.09 K/uL [facility] Basophils/100 WBC (Bld) 1.3 % [facility] Differential cell count method Nom (Bld) Electronic Differential [facility] Eosinophils (Bld) [#/Vol] 0.09 10*3/uL 0.00 - 0.48 K/uL [facility] Eosinophils/100 WBC (Bld) 2.4 % [facility] Erythrocyte distribution width (RBC) [Ratio] 16.6 % High 10.9 - 14.3 % [facility] Hematocrit (Bld) [Volume fraction] 33.3 % Low 39.6 - 48.8 % [facility] Hemoglobin (Bld) [Mass/Vol] 10.4 g/dL Low 13.4 - 16.8 g/dL [facility] Immature granulocytes (Bld) [#/Vol] 0.13 10*3/uL High NINF - 0.07 K/uL [facility] Immature granulocytes/100 WBC (Bld) 3.5 % [facility] Interpretation and review of laboratory results Abnormal [facility] Lymphocytes (Bld) [#/Vol] 1 10*3/uL 0.83 - 3.57 K/uL [facility] Lymphocytes/100 WBC (Bld) 26.8 % [facility] MCH (RBC) [Entitic mass] 31.4 pg 26.1 - 33.3 pg [facility] MCHC (RBC) [Mass/Vol] 31.2 g/dL Low 31.9 - 36.5 g/dL [facility] MCV (RBC) [Entitic vol] 100.6 fL High 79.0 - 94.5 fL [facility] Monocytes (Bld) [#/Vol] 0.56 10*3/uL 0.24 - 0.93 K/uL [facility] Monocytes/100 WBC (Bld) 15 % [facility] Neutrophils (Bld) [#/Vol] 1.9 10*3/uL 1.57 - 6.19 K/uL [facility] Nucleated RBC/100 WBC (Bld) [Ratio] 0 % NINF [facility] Platelet mean volume (Bld) [Entitic vol] 10.9 fL 8.7 - 12.3 fL [facility] Platelets (Bld) [#/Vol] 369 10*3/uL High 146 - 337 K/uL [facility] RBC (Bld) [#/Vol] 3.31 10*6/uL Low [facility] Segmented neutrophils/100 WBC (Bld) 51 % [facility] WBC (Bld) [#/Vol] 3.73 10*3/uL 3.73 - 10. 10 K/uL [facility] Basophils (Bld) [#/Vol] 0.05 10*3/uL Normal 0.00-0.09 [facility] Comment on above: Performed By: #### L [id number] ####[facility] (DEFAULT)[address] [place] [address] Basophils/100 WBC (Bld) 1.3 % Normal [facility] Comment on above: Performed By: #### L [id number] ####[facility] (DEFAULT)[address] [place] [address] DIFF STATUS Electronic Differential Normal [facility] Comment on above: Performed By: #### L [id number] ####[facility] (DEFAULT)[address] [place] [id number] Eosinophils (Bld) [#/Vol] 0.09 10*3/uL Normal 0.00-0.48 [facility] Comment on above: Performed By: #### L [id number] ####[facility] (DEFAULT)[address] [place] [address] Eosinophils/100 WBC (Bld) 2.4 % Normal [facility] Comment on above: Performed By: #### L [id number] ####[facility] (DEFAULT)[address] [place] [address] Hematocrit (Bld) [Volume fraction] 33.3 % Low 39.6-48.8 [facility] Comment on above: Performed By: #### L [id number] ####[facility] (DEFAULT)[address] [place] [address] Hemoglobin (Bld) [Mass/Vol] 10.4 g/dL Low 13.4-16.8 [facility] Comment on above: Performed By: #### L AB980 ####[facility] (DEFAULT)[address] [place] [address] Immature Grans % 3.5 % Normal [facility] Comment on above: Performed By: #### L AB980 ####[facility] (DEFAULT)[address] [place] [address] Immature Grans Absolute 0.13 K/uL High <=0.07 [facility] Comment on above: Performed By: #### L [id number] ####[facility] (DEFAULT)[address] [place] [address] Lymphocytes (Bld) [#/Vol] 1.00 10*3/uL Normal 0.83-3.57 [facility] Comment on above: Performed By: #### L [id number] ####[facility] (DEFAULT)[address] [place] [address] Lymphocytes/100 WBC (Bld) 26.8 % Normal [facility] Comment on above: Performed By: #### L AB980 ####[facility] (DEFAULT)[address] [place] [address] MCV (RBC) [Entitic vol] 100.6 fL High 79.0-94.5 [facility] Comment on above: Performed By: #### L [id number] ####[facility] (DEFAULT)[address] [place] [address] Mean Cell Hgb 31.4 pg Normal 26.1-33.3 [facility] Comment on above: Performed By: #### L AB980 ####[facility] (DEFAULT)[address] [place] [address] Mean Cell Hgb Conc 31.2 g/dL Low 31.9-36.5 [facility] Comment on above: Performed By: #### L [id number] ####[facility] (DEFAULT)[address] [place] [address] Monocytes (Bld) [#/Vol] 0.56 10*3/uL Normal 0.24-0.93 [facility] Comment on above: Performed By: #### L AB980 ####[facility] (DEFAULT)[address] [place] [address] Monocytes/100 WBC (Bld) 15.0 % Normal [facility] Comment on above: Performed By: #### L [id number] ####[facility] (DEFAULT)[address] [place] [address] Nucleated RBC 0.0 /100 WBC Normal <=0.2 [facility] Comment on above: Performed By: #### L [id number] ####[facility] (DEFAULT)[address] [place] [address] Platelet mean volume (Bld) [Entitic vol] 10.9 fL Normal 8.7-12.3 [facility] Comment on above: Performed By: #### L [id number] ####[facility] (DEFAULT)[address] [place] [address] Platelets (Bld) [#/Vol] 369 10*3/uL High 146-337 [facility] Comment on above: Performed By: #### L AB980 ####[facility] (DEFAULT)[address] [place] [address] RBC (Bld) [#/Vol] 3.31 10*6/uL Low 4.38-5.83 [facility] Comment on above: Performed By: #### L [id number] ####[facility] (DEFAULT)[address] [place] [address] RBC Distribution 16.6 % High 10.9-14.3 [facility] Comment on above: Performed By: #### L AB980 ####[facility] (DEFAULT)[address] [place] [address] Segs + Bands Auto 51.0 % Normal [facility] Comment on above: Performed By: #### L [id number] ####[facility] (DEFAULT)[address] [place] [address] Segs + Bands,Absolute Auto 1.90 K/uL Normal 1.57-6.19 [facility] Comment on above: Performed By: #### L [id number] ####[facility] (DEFAULT)[address] [place] [address] WBC (Bld) [#/Vol] 3.73 10*3/uL Normal 3.73-10.10 [facility] Comment on above: Performed By: #### L AB980 ####[facility] (DEFAULT)[address] [place] [address] CHEM 7 (LYTES,BUN,CREA,GLUC) on 08-07-2024 Anion gap [Moles/Vol] 13 mmol/L 7 - 17 mmol/L [facility] Chloride [Moles/Vol] 105 mmol/L 98 - 10 8 mmol/L [facility] CO2 [Moles/Vol] 24 mmol/L 21 - 31 mmol/L [facility] Creatinine [Mass/Vol] 0.69 mg/dL Low 0.70 - 1.30 mg/dL [facility] eGFR, CKD-EPI, Male - PINF [facility] Comment on above: Reported eGFR is bas ed on the CKD-EPI 2020 equation using creatinine, age, and sex. Glucose [Mass/Vol] 85 mg/dL 70 - 179 mg/dL [facility] Osmolality Calc [Osmolality] 294 [facility] Potassium [Moles/Vol] 4.1 mmol/L 3.5 - 5.0 mmol/L [facility] Sodium [Moles/Vol] 138 mmol/L 135 - 145 mmol/L [facility] Urea nitrogen [Mass/Vol] 28 mg/dL High 7 - 25 mg/dL [facility] Urea nitrogen/Creatinine [Mass ratio] 41 mg/mg [facility] Anion gap [Moles/Vol] 13 mmol/L Normal 7-17 [facility] Comment on above: Performed By: #### H FP, CHM7, CA, IPB, MGO ####[facility] (DEFAULT)[address] [place] [address] Chloride [Moles/Vol] 105 mmol/L Normal 98-108 [facility] Comment on above: Performed By: #### H FP, CHM7, CA, IPB, MGO ####[facility] (DEFAULT)[address] [place] [address] CO2 [Moles/Vol] 24 mmol/L Normal 21-31 [facility] Comment on above: Performed By: #### H FP, CHM7, CA, IPB, MGO ####[facility] (DEFAULT)[address] [place] [address] Creatinine [Mass/Vol] 0.69 mg/dL Low 0.70-1.30 [facility] Comment on above: Performed By: #### H FP, CHM7, CA, IPB, MGO ####[facility] (DEFAULT)[address] [place] [address] eGFR, CKD-EPI, Male > Normal >=60 [facility] Comment on above: Result Comment: Repo rted eGFR is based on the CKD-EPI 2020 equation using creatinine, age, and sex. Performed By: #### H FP, CHM7, CA, IPB, MGO ####[facility] (DEFAULT)[address] [place] [address] Glucose [Mass/Vol] 85 mg/dL Normal Nonfastin -179 mg/dL; Fastin-99 [facility] Comment on above: Performed By: #### H FP, CHM7, CA, IPB, MGO ####[facility] (DEFAULT)[address] [place] [address] Osmolality [Osmolality] 294 mosm/kg Normal 278-305 [facility] Comment on above: Performed By: #### H FP, CHM7, CA, IPB, MGO ####[facility] (DEFAULT)[address] [place] [address] Potassium [Moles/Vol] 4.1 mmol/L Normal 3.5-5.0 [facility] Comment on above: Performed By: #### H FP, CHM7, CA, IPB, MGO ####[facility] (DEFAULT)[address] [facility] [place] [address] Sodium [Moles/Vol] 138 mmol/L Normal 135-145 [facility] Comment on above: Performed By: #### H FP, CHM7, CA, IPB, MGO ####[facility] (DEFAULT)[address] [place] [address] Urea nitrogen [Mass/Vol] 28 mg/dL High 7-25 [facility] Comment on above: Performed By: #### H FP, CHM7, CA, IPB, MGO ####[facility] (DEFAULT)[address] [place] [address] Urea nitrogen/Creatinine [Mass ratio] 41 mg/mg Normal [facility] Comment on above: Performed By: #### H FP, CHM7, CA, IPB, MGO ####[facility] (DEFAULT)[address] [place] [address] HEPATIC FUNCTION PANELon Albumin [Mass/Vol] 3.6 g/dL 3.5 - 5.0 g/dL [facility] ALP [Catalytic activity/Vol] 276 U/L High 32 - 126 U/L [facility] ALT [Catalytic activity/Vol] 40 U/L 10 - 52 U/L [facility] AST [Catalytic activity/Vol] 23 U/L 10 - 39 U/L [facility] Bilirubin [Mass/Vol] 0.3 mg/dL NINF - 1.5 mg/dL [facility] Bilirubin.direct [Mass/Vol] 0.1 mg/dL NINF - 0.3 mg/dL [facility] Protein [Mass/Vol] 6.3 g/dL Low 6.4 - 8.3 g/dL [facility] Albumin [Mass/Vol] 3.6 g/dL Normal 3.5-5.0 [facility] Comment on above: Performed By: #### H JAKE, CHM7, CA, IPB, MGO ####[facility] (DEFAULT)[address] [place] [address] ALP [Catalytic activity/Vol] 276 U/L High 32-126 [facility] Comment on above: Performed By: #### H FP, CHM7, CA, IPB, MGO ####[facility] (DEFAULT)[address] [place] [address] ALT [Catalytic activity/Vol] 40 U/L Normal 10-52 [facility] Comment on above: Performed By: #### H FP, CHM7, CA, IPB, MGO ####[facility] (DEFAULT)[address] [place] [address] AST [Catalytic activity/Vol] 23 U/L Normal 10-39 [facility] Comment on above: Performed By: #### H FP, CHM7, CA, IPB, MGO ####[facility] (DEFAULT)[address] [place] [address] Bilirubin [Mass/Vol] 0.3 mg/dL Normal <1.5 [facility] Comment on above: Performed By: #### H FP, CHM7, CA, IPB, MGO ####[facility] (DEFAULT)[address] [place] [address] Bilirubin.indirect [Mass/Vol] 0.1 mg/dL Normal <0.3 [facility] Comment on above: Performed By: #### H FP, CHM7, CA, IPB, MGO ####[facility] (DEFAULT)[address] [place] [address] Protein [Mass/Vol] 6.3 g/dL Low 6.4-8.3 [facility] Comment on above: Performed By: #### H FP, CHM7, CA, IPB, MGO ####[facility] (DEFAULT)[address] [place] [address] MAGNESIUMon 08-07-2024 Magnesium [Mass/Vol] 1.6 mg/dL 1.6 - 2 .6 mg/dL [facility] Magnesium [Mass/Vol] 1.6 mg/dL Normal 1.6-2.6 [facility] Comment on above: Performed By: #### H FP, CHM7, CA, IPB, MGO ####[facility] (DEFAULT)[address] [place] [address] No Panel Informationon 08-07 Interpretation and review of laboratory results Abnormal [facility] Interpretation and review of laboratory results Normal [facility] PHOSPHATE, INORGANICon 08-07 Phosphate [Mass/Vol] 3.5 mg/dL 2.2 - 4 .6 mg/dL [facility] Phosphorous 3.5 mg/dL Normal 2.2-4.6 [facility] Comment on above: Performed By: #### H FP, CHM7, CA, IPB, MGO ####[facility] (DEFAULT)[address] [place] [address] Q FEVER ANTIBODYon C. burnetii Ab IA Ql (S) Reactive Negative [facility] Comment on above: Not diagnostic. [facility] le reflexed to IFA to determine Q Fever (Coxiella burnetii) phase I and phase II IgM and IgG titers. ADDITIONAL INFORMATION This test was developed and its performance characteristics determined by [facility] in a manner consistent with CLIA requirements. This test has not been cleared or approved by the U.[place]. Food and Drug Administration. Test Performed by: [facility] [place] [id number] [employer] Cutter Operator: Orlando Cruz Ph.D.; CLIA# [id number] [facility] TACROLIMUS LEVEL, TROUGH (NE E DRUG LEVEL)on 08-07-2024 Tacrolimus (Bld) [Mass/Vol] 5.6 ng/mL Bone Marrow Transplant: 5.0-15.0 Kidney/Pancre atic Transplant: 0 to 3 months: 8.0-10.0, 3 to 12 months: 6.0-8.0, >12 months: 4.0-6.0 [facility] Method performed is a chemiluminescent microparticle immunoasssay on the [employer] i2000. The range is based on experience at [facility] and users should be aware that target concentrations vary widely depending on concomitant therapy, time post-transplant, and desired degree of immunosuppression. [facility] Tacrolimus, Trough 5.6 ng/mL Normal Bone Veronique ow Transplant: 5.0-15.0 Kidney/Pancre atic Transplant: 0 to 3 months: 8.0-10.0, 3 to 12 months: 6.0-8.0, >12 months: 4.0-6.0 [facility] Comment on above: Order Comment: Bunny e draw at specified interval PRIOR to dose. Do not hold dose to wait for level. Specimens batched twice per day, (M-F) and once per day weekendsMethod performed is a chemiluminescent microparticle immunoasssay on the [employer] i2000.The range is based on experience at [facility] and users should be aware that target concentrations vary widely depending on concomitant therapy, time post-transplant, and desired degree of immunosuppression. Performed By: #### T ACRO ####[facility] (DEFAULT)[address] [place] [address] Bacteria identified Cx Nom ( Bld)on 08-06-2024 Bacteria identified Cx Nom (Unsp spec) NO GROWTH DAY 5 OF 5 [facility] Results may be compromised due to LOW VOLUME of the BACT\ALERT bottle UNDER 8mLs, which can be associated with decreased sensitivity. The optimal blood volume is 8-10mLs per aerobic/anaerobic blood culture bottle. [facility] C DIFFICILE TWO STEPOrdered By: Wanda Mendoza on 08-06-2024 C. difficile DNA JACKY+probe Ql (Unsp spec) Negative Negative [facility] Comment on above: This assay detects C . difficile (Toxin B gene DNA) by PCR. Interpretation and review of laboratory results Normal [facility] CALCIUMon 08-06-2024 Calcium [Mass/Vol] 8.9 mg/dL 8.6 - 10. 5 mg/dL [facility] Calcium [Mass/Vol] 8.9 mg/dL Normal 8.6-10.5 [facility] Comment on above: Performed By: #### I PB, HFP, CHM7, MGO, CA ####[facility] (DEFAULT)[address] [place] [address] CBC AND ELECTRONIC DIFFon Erythrocyte distribution width (RBC) [Ratio] 16.7 % High 10.9 - 14.3 % [facility] Hematocrit (Bld) [Volume fraction] 34.7 % Low 39.6 - 48.8 % [facility] Hemoglobin (Bld) [Mass/Vol] 11.4 g/dL Low 13.4 - 16.8 g/dL [facility] MCH (RBC) [Entitic mass] 31.9 pg 26.1 - 33.3 pg [facility] MCHC (RBC) [Mass/Vol] 32.9 g/dL 31.9 - 36.5 g/dL [facility] MCV (RBC) [Entitic vol] 97.2 fL High 79.0 - 94.5 fL [facility] Platelet mean volume (Bld) [Entitic vol] 9.8 fL 8.7 - 12.3 fL [facility] Platelets (Bld) [#/Vol] 400 10*3/uL High 146 - 337 K/uL [facility] RBC (Bld) [#/Vol] 3.57 10*6/uL Low [facility] WBC (Bld) [#/Vol] 4.46 10*3/uL 3.73 - 10. 10 K/uL [facility] Hematocrit (Bld) [Volume fraction] 34.7 % Low 39.6-48.8 [facility] Comment on above: Performed By: #### L AB980 ####[facility] (DEFAULT)[address] [place] [address] [address] Hemoglobin (Bld) [Mass/Vol] 11.4 g/dL Low 13.4-16.8 [facility] Comment on above: Performed By: #### L AB980 ####[facility] (DEFAULT)[address] [address] MCV (RBC) [Entitic vol] 97.2 fL High 79.0-94.5 [facility] Comment on above: Performed By: #### L AB980 ####[facility] (DEFAULT)[address] [place] [address] Mean Cell Hgb 31.9 pg Normal 26.1-33.3 [facility] Comment on above: Performed By: #### L AB980 ####[facility] (DEFAULT)[address] [place] [address] Mean Cell Hgb Conc 32.9 g/dL Normal 31.9-36.5 [facility] Comment on above: Performed By: #### L AB980 ####[facility] (DEFAULT)[address] [place] [address] Platelet mean volume (Bld) [Entitic vol] 9.8 fL Normal 8.7-12.3 [facility] Comment on above: Performed By: #### L AB980 ####[facility] (DEFAULT)[address] [place] [address] Platelets (Bld) [#/Vol] 400 10*3/uL High 146-337 [facility] Comment on above: Performed By: #### L AB980 ####[facility] (DEFAULT)[address] [place] [address] RBC (Bld) [#/Vol] 3.57 10*6/uL Low 4.38-5.83 [facility] Comment on above: Performed By: #### L AB980 ####[facility] (DEFAULT)[address] [place] [address] RBC Distribution 16.7 % High 10.9-14.3 [facility] Comment on above: Performed By: #### L AB980 ####[facility] (DEFAULT)[address] [place] [address] WBC (Bld) [#/Vol] 4.46 10*3/uL Normal 3.73-10.10 [facility] Comment on above: Performed By: #### L AB980 ####[facility] (DEFAULT)[address] [place] [address] CHEM 7 (LYTES,BUN,CREA,GLUC) on 08-06-2024 Anion gap [Moles/Vol] 14 mmol/L 7 - 17 mmol/L [facility] Chloride [Moles/Vol] 105 mmol/L 98 - 10 8 mmol/L [facility] CO2 [Moles/Vol] 25 mmol/L 21 - 31 mmol/L [facility] Creatinine [Mass/Vol] 0.73 mg/dL 0.70 - 1.30 mg/dL [facility] eGFR, CKD-EPI, Male - PINF [facility] Comment on above: Reported eGFR is bas ed on the CKD-EPI 2020 equation using creatinine, age, and sex. Glucose [Mass/Vol] 88 mg/dL 70 - 179 mg/dL [facility] Osmolality Calc [Osmolality] 297 [facility] Potassium [Moles/Vol] 4.2 mmol/L 3.5 - 5.0 mmol/L [facility] Sodium [Moles/Vol] 140 mmol/L 135 - 145 mmol/L [facility] Urea nitrogen [Mass/Vol] 27 mg/dL High 7 - 25 mg/dL [facility] Urea nitrogen/Creatinine [Mass ratio] 37 mg/mg [facility] Anion gap [Moles/Vol] 14 mmol/L Normal 7-17 [facility] Comment on above: Performed By: #### I PB, HFP, CHM7, MGO, CA ####[facility] (DEFAULT)[address] [place] [address] Chloride [Moles/Vol] 105 mmol/L Normal 98-108 [facility] Comment on above: Performed By: #### I PB, HFP, CHM7, MGO, CA ####[facility] (DEFAULT)[address] [place] [address] CO2 [Moles/Vol] 25 mmol/L Normal 21-31 [facility] Comment on above: Performed By: #### I PB, HFP, CHM7, MGO, CA ####[facility] (DEFAULT)[address] [place] [address] Creatinine [Mass/Vol] 0.73 mg/dL Normal 0.70-1.30 [facility] Comment on above: Performed By: #### I PB, HFP, CHM7, MGO, CA ####[facility] (DEFAULT)[address] [place] [address] eGFR, CKD-EPI, Male > Normal >=60 [facility] Comment on above: Result Comment: Repo rted eGFR is based on the CKD-EPI 2020 equation using creatinine, age, and sex. Performed By: #### I PB, HFP, CHM7, MGO, CA ####[facility] (DEFAULT)[address] [place] [address] Glucose [Mass/Vol] 88 mg/dL Normal Nonfastin -179 mg/dL; Fastin-99 [facility] Comment on above: Performed By: #### I PB, HFP, CHM7, MGO, CA ####[facility] (DEFAULT)[address] [place] [address] Osmolality [Osmolality] 297 mosm/kg Normal 278-305 [facility] Comment on above: Performed By: #### I PB, HFP, CHM7, MGO, CA ####[facility] (DEFAULT)[address] [place] [address] Potassium [Moles/Vol] 4.2 mmol/L Normal 3.5-5.0 [facility] Comment on above: Performed By: #### I PB, HFP, CHM7, MGO, CA ####[facility] (DEFAULT)[address] [place] [address] Sodium [Moles/Vol] 140 mmol/L Normal 135-145 [facility] Comment on above: Performed By: #### I PB, HFP, CHM7, MGO, CA ####[facility] (DEFAULT)[address] [place] [address] Urea nitrogen [Mass/Vol] 27 mg/dL High 7-25 [facility] Comment on above: Performed By: #### I PB, HFP, CHM7, MGO, CA ####[facility] (DEFAULT)[address] [place] [address] Urea nitrogen/Creatinine [Mass ratio] 37 mg/mg Normal [facility] Comment on above: Performed By: #### I PB, HFP, CHM7, MGO, CA ####[facility] (DEFAULT)[address] [place] [address] HEPATIC FUNCTION PANELon Albumin [Mass/Vol] 3.7 g/dL 3.5 - 5.0 g/dL [facility] ALP [Catalytic activity/Vol] 326 U/L High 32 - 126 U/L [facility] ALT [Catalytic activity/Vol] 49 U/L 10 - 52 U/L [facility] AST [Catalytic activity/Vol] 22 U/L 10 - 39 U/L [facility] Bilirubin [Mass/Vol] 0.3 mg/dL [facility] mg/dL [facility] Bilirubin.direct [Mass/Vol] 0.1 mg/dL NINF - 0.3 mg/dL [facility] Protein [Mass/Vol] 6.4 g/dL 6.4 - 8.3 g/dL [facility] Albumin [Mass/Vol] 3.7 g/dL Normal 3.5-5.0 [facility] Comment on above: Performed By: #### I PB, HFP, CHM7, MGO, CA ####[facility] (DEFAULT)[address] [place] [address] ALP [Catalytic activity/Vol] 326 U/L High 32-126 [facility] Comment on above: Performed By: #### I PB, HFP, CHM7, MGO, CA ####[facility] (DEFAULT)[address] [place] [address] ALT [Catalytic activity/Vol] 49 U/L Normal 10-52 [facility] Comment on above: Performed By: #### I PB, HFP, CHM7, MGO, CA ####[facility] (DEFAULT)[address] [place] [address] AST [Catalytic activity/Vol] 22 U/L Normal 10-39 [facility] Comment on above: Performed By: #### I PB, HFP, CHM7, MGO, CA ####[facility] (DEFAULT)[address] [place] [address] Bilirubin [Mass/Vol] 0.3 mg/dL Normal <1.5 [facility] Comment on above: Performed By: #### I PB, HFP, CHM7, MGO, CA ####[facility] (DEFAULT)[address] [place] [address] Bilirubin.indirect [Mass/Vol] 0.1 mg/dL Normal <0.3 [facility] Comment on above: Performed By: #### I PB, HFP, CHM7, MGO, CA ####[facility] (DEFAULT)[address] [place] [address] Protein [Mass/Vol] 6.4 g/dL Normal 6.4-8.3 [facility] Comment on above: Performed By: #### I PB, HFP, CHM7, MGO, CA ####[facility] (DEFAULT)[address] [place] [address] MAGNESIUMon 08-06-2024 Magnesium [Mass/Vol] 1.7 mg/dL 1.6 - 2 .6 mg/dL [facility] Magnesium [Mass/Vol] 1.7 mg/dL Normal 1.6-2.6 [facility] Comment on above: Performed By: #### I PB, HFP, CHM7, MGO, CA ####[facility] (DEFAULT)[address] [place] [address] MANUAL DIFFon 08-06-2024 Band form neutrophils/100 WBC (Bld) 0 % [facility] Basophils (Bld) [#/Vol] 0.19 10*3/uL High 0.00 - 0.09 K/uL [facility] Basophils/100 WBC (Bld) 4.3 % [facility] Hardin cells LM Ql (Bld) Present Abnormal (none) [facility] Differential cell count method Nom (Bld) Manual Differential [facility] Eosinophils (Bld) [#/Vol] 0.15 10*3/uL [facility] Eosinophils/100 WBC (Bld) 3.4 % [facility] Lymphocytes (Bld) [#/Vol] 1.49 10*3/uL 0.83 - 3.57 K/uL [facility] Lymphocytes/100 WBC (Bld) 33.3 % [facility] Monocytes (Bld) [#/Vol] 0.23 10*3/uL Low 0.24 - 0.93 K/uL [facility] Monocytes/100 WBC (Bld) 5.1 % [facility] Neutrophils (Bld) [#/Vol] 2.4 10*3/uL 1.57 - 6.19 K/uL [facility] Platelets Estimate (Bld) [#/Vol] Automated platelet count confirmed by manual slide review [facility] RBC morphology finding Nom (Bld) RBC INDICES CONFIRMED WITH MANUAL SLIDE REVIEW [facility] Segmented neutrophils/100 WBC (Bld) 53.9 % [facility] No Panel Informationon 08-06 Interpretation and review of laboratory results Abnormal [facility] Interpretation and review of laboratory results Abnormal [facility] Interpretation and review of laboratory results Normal [facility] PHOSPHATE, INORGANICon 08-06 Phosphate [Mass/Vol] 3 mg/dL 2.2 - 4 .6 mg/dL [facility] Phosphorous 3.0 mg/dL Normal 2.2-4.6 [facility] Comment on above: Performed By: #### I PB, HFP, CHM7, MGO, CA ####[facility] (DEFAULT[facility] [place] [address] TACROLIMUS LEVEL, TROUGH (NE E DRUG LEVEL)on 08-06-2024 Tacrolimus (Bld) [Mass/Vol] 6.1 ng/mL Bone Marrow Transplant: 5.0-15.0 Kidney/Pancre atic Transplant: 0 to 3 months: 8.0-10.0, 3 to 12 months: 6.0-8.0, >12 months: 4.0-6.0 [facility] Method performed is a chemiluminescent microparticle immunoasssay on the [employer] i2000. The range is based on experience at [facility] and users should be aware that target concentrations vary widely depending on concomitant therapy, time post-transplant, and desired degree of immunosuppression. [facility] Tacrolimus, Trough 6.1 ng/mL Normal Bone Veronique ow Transplant: 5.0-15.0 Kidney/Pancre atic Transplant: 0 to 3 months: 8.0-10.0, 3 to 12 months: 6.0-8.0, >12 months: 4.0-6.0 [facility] Comment on above: Order Comment: Pleas e draw at specified interval PRIOR to dose. Do not hold dose to wait for level. Specimens batched twice per day, (M-F) and once per day weekendsMethod performed is a chemiluminescent microparticle immunoasssay on the [employer] i2000.The range is based on experience at [facility] and users should be aware that target concentrations vary widely depending on concomitant therapy, time post-transplant, and desired degree of immunosuppression. Performed By: #### T ACRO ####[facility] (DEFAULT)[address] [place] [address] ALK PHOSPHATASE FRACTIONATED on 08-05-2024 ALK PHOS BONE 206.1 U/L High 12.0-56.7 [facility] Comment on above: Performed By: #### Y ALPFB ####[facility] (DEFAULT)[address] [place] [address] ALK PHOS INTESTINAL 0.0 U/L Normal <=12.6 [facility] Comment on above: Result Comment: Test Performed by:[address] [id number] Director: Orlando Cruz Ph.D.; CLIA# [id number] Performed By: #### Y ALPFB ####[facility] (DEFAULT)[address] [place] [address] ALK PHOS INTESTINAL FRACTION 0.0 % Normal <=22.5 [facility] Comment on above: Performed By: #### Y ALPFB ####[facility] (DEFAULT)[address] [place] [address] ALKALINE PHOS, BONE FRACTION 41.8 % Normal 23.8-68.3 [facility] Comment on above: Performed By: #### Y ALPFB ####[facility] (DEFAULT)[address] [place] [address] ALKALINE PHOS, TOTAL 493 U/L High 40-129 [facility] Comment on above: Performed By: #### Y ALPFB ####[facility] (DEFAULT)[address] [place] [address] ALKALINE PHOSPHATASE ISOENZYMES DNR Normal [facility] Comment on above: Performed By: #### Y ALPFB ####[facility] (DEFAULT)[address] [place] [address] LIVER FRACTION 58.2 % Normal 30.2-74.7 [facility] Comment on above: Performed By: #### Y ALPFB ####[facility] (DEFAULT)[address] [place] [address] LIVER I 286.9 U/L High 15.8-71.9 [facility] Comment on above: Performed By: #### Y ALPFB ####[facility] (DEFAULT)[address] [place] [address] B HENSELAE/B FULLER IGG,IG 08-05-2024 Bartonella henselae IgG <1:128 Normal <1:128 [facility] Comment on above: Performed By: #### Y CAT ####[facility] (DEFAULT)[address] [place] [address] Bartonella henselae IgM <1:20 Normal <1:20 [facility] Comment on above: Performed By: #### Y CAT ####[facility] (DEFAULT)[address] [place] [address] Bartonella fuller IgG <1:128 Normal <1:128 [facility] Comment on above: Performed By: #### Y CAT ####[facility] (DEFAULT)[address] [place] [address] Bartonella fuller IgM <1:20 Normal <1:20 [facility] Comment on above: Result Comment: ---- ADDITIONAL INFORMATION This test was developed and its performance characteristicsdetermined by [facility] in a manner consistent with CLIArequirements. This test has not been cleared or approved bythe U.S. Food and Drug Administration.Test Performed by:[address] [id number] Director: Orlando Cruz Ph.D.; CLIA# [id number] Performed By: #### Y CAT ####[facility] (DEFAULT)[address] [place] [address] BARTONELLA, DNA, PCR, BLOODo n 08-05-2024 Bartonella, DNA, PCR Negative Normal Not Applicable [facility] Comment on above: Result Comment: ---- ADDITIONAL INFORMATION This test was developed and its performance characteristicsdetermined by [facility] in a manner consistent with CLIArequirements. This test has not been cleared or approved bythe U.S. Food and Drug Administration.Test Performed by:[address] [id number] Director: Orlando Cruz Ph.D.; CLIA# [id number] Performed By: #### Y ANABEL ####[facility] (DEFAULT)[address] [place] [address] BR Source BLOOD Normal [facility] Comment on above: Performed By: #### Y ANABEL ####[facility] (DEFAULT)[address] [place] [address] C DIFFICILE TWO STEPon 08-05 C Difficile By Pcr Negative Normal Negative [facility] Comment on above: Order Comment: C. [...] Performed By: #### C DIFFICILE TWO STEP ####[facility] (DEFAULT)[address] [place] [address] CALCIUMon 08-05-2024 Calcium [Mass/Vol] 8.6 mg/dL 8.6 - 10. 5 mg/dL [facility] Calcium [Mass/Vol] 8.6 mg/dL Normal 8.6-10.5 [facility] Comment on above: Performed By: #### I PB, HFP, CHM7, MGO, CA ####[facility] (DEFAULT)[address] [place] [address] CBC AND ELECTRONIC DIFFon Basophils (Bld) [#/Vol] 0.05 10*3/uL 0.00 - 0.09 K/uL [facility] Basophils/100 WBC (Bld) 1.1 % [facility] Differential cell count method Nom (Bld) Electronic Differential [facility] Eosinophils (Bld) [#/Vol] 0.05 10*3/uL 0.00 - 0.48 K/uL [facility] Eosinophils/100 WBC (Bld) 1.1 % [facility] Erythrocyte distribution width (RBC) [Ratio] 16.5 % High 10.9 - 14.3 % [facility] Hematocrit (Bld) [Volume fraction] 34.5 % Low 39.6 - 48.8 % [facility] Hemoglobin (Bld) [Mass/Vol] 11.1 g/dL Low 13.4 - 16.8 g/dL [facility] Immature granulocytes (Bld) [#/Vol] 0.08 10*3/uL High NINF - 0.07 K/uL [facility] Immature granulocytes/100 WBC (Bld) 1.7 % [facility] Interpretation and review of laboratory results Abnormal [facility] Lymphocytes (Bld) [#/Vol] 0.7 10*3/uL Low 0.83 - 3.57 K/uL [facility] Lymphocytes/100 WBC (Bld) 15.1 % [facility] MCH (RBC) [Entitic mass] 31.1 pg 26.1 - 33.3 pg [facility] MCHC (RBC) [Mass/Vol] 32.2 g/dL 31.9 - 36.5 g/dL [facility] MCV (RBC) [Entitic vol] 96.6 fL High 79.0 - 94.5 fL [facility] Monocytes (Bld) [#/Vol] 0.44 10*3/uL 0.24 - 0.93 K/uL [facility] Monocytes/100 WBC (Bld) 9.5 % [facility] Neutrophils (Bld) [#/Vol] 3.31 10*3/uL 1.57 - 6.19 K/uL [facility] Nucleated RBC/100 WBC (Bld) [Ratio] 0 % NINF [facility] Platelet mean volume (Bld) [Entitic vol] 10.1 fL 8.7 - 12.3 fL [facility] Platelets (Bld) [#/Vol] 367 10*3/uL High 146 - 337 K/uL [facility] RBC (Bld) [#/Vol] 3.57 10*6/uL Low [facility] Segmented neutrophils/100 WBC (Bld) 71.5 % [facility] WBC (Bld) [#/Vol] 4.63 10*3/uL 3.73 - 10. 10 K/uL [facility] Basophils (Bld) [#/Vol] 0.05 10*3/uL Normal 0.00-0.09 [facility] Comment on above: Performed By: #### L AB980 ####[facility] (DEFAULT)[address] [place] [address] Basophils/100 WBC (Bld) 1.1 % Normal [facility] Comment on above: Performed By: #### L AB980 ####[facility] (DEFAULT)[address] [place] [address] DIFF STATUS Electronic Differential Normal [facility] Comment on above: Performed By: #### L AB980 ####[facility] (DEFAULT)[address] [place] [address] Eosinophils (Bld) [#/Vol] 0.05 10*3/uL Normal 0.00-0.48 [facility] Comment on above: Performed By: #### L AB980 ####[facility] (DEFAULT)[address] [place] [address] Eosinophils/100 WBC (Bld) 1.1 % Normal [facility] Comment on above: Performed By: #### L AB980 ####[facility] (DEFAULT)[address] [place] [address] Hematocrit (Bld) [Volume fraction] 34.5 % Low 39.6-48.8 [facility] Comment on above: Performed By: #### L AB980 ####[facility] (DEFAULT)[address] [place] [address] Hemoglobin (Bld) [Mass/Vol] 11.1 g/dL Low 13.4-16.8 [facility] Comment on above: Performed By: #### L AB980 ####[facility] (DEFAULT)[address] [place] [address] Immature Grans % 1.7 % Normal [facility] Comment on above: Performed By: #### L AB980 ####[facility] (DEFAULT)[address] [place] [address] Immature Grans Absolute 0.08 K/uL High <=0.07 [facility] Comment on above: Performed By: #### L AB980 ####[facility] (DEFAULT)[address] [place] [address] Lymphocytes (Bld) [#/Vol] 0.70 10*3/uL Low 0.83-3.57 [facility] Comment on above: Performed By: #### L AB980 ####[facility] (DEFAULT)[address] [place] [address] Lymphocytes/100 WBC (Bld) 15.1 % Normal [facility] Comment on above: Performed By: #### L AB980 ####[facility] (DEFAULT)[address] [place] [address] MCV (RBC) [Entitic vol] 96.6 fL High 79.0-94.5 [facility] Comment on above: Performed By: #### L AB980 ####[facility] (DEFAULT)[address] [place] [address] Mean Cell Hgb 31.1 pg Normal 26.1-33.3 [facility] Comment on above: Performed By: #### L AB980 ####[facility] (DEFAULT)[address] [place] [address] Mean Cell Hgb Conc 32.2 g/dL Normal 31.9-36.5 [facility] Comment on above: Performed By: #### L AB980 ####[facility] (DEFAULT)[address] [place] [address] Monocytes (Bld) [#/Vol] 0.44 10*3/uL Normal 0.24-0.93 [facility] Comment on above: Performed By: #### L AB980 ####[facility] (DEFAULT)[address] [place] [address] Monocytes/100 WBC (Bld) 9.5 % Normal [facility] Comment on above: Performed By: #### L AB980 ####[facility] (DEFAULT)[address] [place] [address] Nucleated RBC 0.0 /100 WBC Normal <=0.2 [facility] Comment on above: Performed By: #### L AB980 ####[facility] (DEFAULT)[address] [place] [address] Platelet mean volume (Bld) [Entitic vol] 10.1 fL Normal 8.7-12.3 [facility] Comment on above: Performed By: #### L AB980 ####[facility] (DEFAULT)[address] [place] [address] Platelets (Bld) [#/Vol] 367 10*3/uL High 146-337 [facility] Comment on above: Performed By: #### L AB980 ####[facility] (DEFAULT)[address] [place] [address] RBC (Bld) [#/Vol] 3.57 10*6/uL Low 4.38-5.83 [facility] Comment on above: Performed By: #### L AB980 ####[facility] (DEFAULT)[address] [place] [address] RBC Distribution 16.5 % High 10.9-14.3 [facility] Comment on above: Performed By: #### L AB980 ####[facility] (DEFAULT)[address] [place] [address] Segs + Bands Auto 71.5 % Normal [facility] Comment on above: Performed By: #### L AB980 ####[facility] (DEFAULT)[address] [place] [address] Segs + Bands,Absolute Auto 3.31 K/uL Normal 1.57-6.19 [facility] Comment on above: Performed By: #### L AB980 ####[facility] (DEFAULT)[address] [place] [address], [place] [address] WBC (Bld) [#/Vol] 4.63 10*3/uL Normal 3.73-10.10 [facility] Comment on above: Performed By: #### L AB980 ####[facility] (DEFAULT)[address] [place] [id number] CHEM 7 (LYTES,BUN,CREA,GLUC) on 08-05-2024 Anion gap [Moles/Vol] 13 mmol/L 7 - 17 mmol/L [facility] Chloride [Moles/Vol] 104 mmol/L 98 - 10 8 mmol/L [facility] CO2 [Moles/Vol] 22 mmol/L 21 - 31 mmol/L [facility] Creatinine [Mass/Vol] 0.77 mg/dL 0.70 - 1.30 mg/dL [facility] eGFR, CKD-EPI, Male - PINF [facility] Comment on above: Reported eGFR is bas ed on the CKD-EPI 2020 equation using creatinine, age, and sex. Glucose [Mass/Vol] 91 mg/dL 70 - 179 mg/dL [facility] Osmolality Calc [Osmolality] 287 [facility] Potassium [Moles/Vol] 4.2 mmol/L 3.5 - 5.0 mmol/L [facility] Sodium [Moles/Vol] 135 mmol/L 135 - 145 mmol/L [facility] Urea nitrogen [Mass/Vol] 22 mg/dL 7 - 25 mg/dL [facility] Urea nitrogen/Creatinine [Mass ratio] 29 mg/mg [facility] Anion gap [Moles/Vol] 13 mmol/L Normal 7-17 [facility] Comment on above: Performed By: #### I PB, HFP, CHM7, MGO, CA ####[facility] (DEFAULT)[address] [place] [address] Chloride [Moles/Vol] 104 mmol/L Normal 98-108 [facility] Comment on above: Performed By: #### I PB, HFP, CHM7, MGO, CA ####[facility] (DEFAULT)[address] [place] [address] CO2 [Moles/Vol] 22 mmol/L Normal 21-31 [facility] Comment on above: Performed By: #### I PB, HFP, CHM7, MGO, CA ####[facility] (DEFAULT)[address] [place] [address] Creatinine [Mass/Vol] 0.77 mg/dL Normal 0.70-1.30 [facility] Comment on above: Performed By: #### I PB, HFP, CHM7, MGO, CA ####[facility] (DEFAULT)[address] [place] [address] eGFR, CKD-EPI, Male > Normal >=60 [facility] Comment on above: Result Comment: Repo rted eGFR is based on the CKD-EPI 2020 equation using creatinine, age, and sex. Performed By: #### I PB, HFP, CHM7, MGO, CA ####[facility] (DEFAULT)[address] [place] [address] Glucose [Mass/Vol] 91 mg/dL Normal Nonfastin -179 mg/dL; Fastin-99 [facility] Comment on above: Performed By: #### I PB, HFP, CHM7, MGO, CA ####[facility] (DEFAULT)[address] [place] [address] Osmolality [Osmolality] 287 mosm/kg Normal 278-305 [facility] Comment on above: Performed By: #### I PB, HFP, CHM7, MGO, CA ####[facility] (DEFAULT)[address] [place] [address] Potassium [Moles/Vol] 4.2 mmol/L Normal 3.5-5.0 [facility] Comment on above: Performed By: #### I PB, HFP, CHM7, MGO, CA ####[facility] (DEFAULT)[address] [place] [address] Sodium [Moles/Vol] 135 mmol/L Normal 135-145 [facility] Comment on above: Performed By: #### I PB, HFP, CHM7, MGO, CA ####[facility] (DEFAULT)[address] [place] [address] Urea nitrogen [Mass/Vol] 22 mg/dL Normal 7-25 [facility] Comment on above: Performed By: #### I PB, HFP, CHM7, MGO, CA ####[facility] (DEFAULT)[address] [place] [address] Urea nitrogen/Creatinine [Mass ratio] 29 mg/mg Normal [facility] Comment on above: Performed By: #### I PB, HFP, CHM7, MGO, CA ####[facility] (DEFAULT)[address] [place] [address] COXIELLA BURNETII (Q FEVER) PCR, [facility] 08-05-2024 COXIELLA BURNETII, PCR Negative Normal Not Applicable [facility] Comment on above: Result Comment: ---- ADDITIONAL INFORMATION This test was developed and its performance characteristicsdetermined by [facility] in a manner consistent with CLIArequirements. This test has not been cleared or approved bythe U.S. Food and Drug Administration.Test Performed by:[address] [address]Gur Director: Orlando Cruz Ph.D.; CLIA# [id number] Performed By: #### Y CBBRP ####[facility] (DEFAULT)[address] [facility] Comment on above: Performed By: #### Y CBBRP ####[facility] (DEFAULT)[address] [place] [address] EHRLICHIA/ANAPLASMA PCRon Anaplasma phagocytophilum Negative Normal Negative [facility] Comment on above: Performed By: #### Y EHRL ####[facility] (DEFAULT)[address] [place] [address], [place] [address] Ehrlichia chaffeensis Negative Normal Negative [facility] Comment on above: Performed By: #### Y EHRL ####[facility] (DEFAULT)[address] [place] [address] Ehrlichia ewingii/canis Negative Normal Negative [facility] Comment on above: Performed By: #### Y EHRL ####[facility] (DEFAULT)[address] [place] [address] Ehrlichia muris-like Negative Normal Negative [facility] Comment on above: Result Comment: ---- ADDITIONAL INFORMATION This test was developed and its performance characteristicsdetermined by [facility] in a manner consistent with CLIArequirements. This test has not been cleared or approved bythe U.S. Food and Drug Administration.Test Performed by:[address] [address]Bph Director: Orlando Cruz Ph.D.; CLIA# [id number] Performed By: #### Y EHRL ####[facility] (DEFAULT)[address] [place] [address] FUNGAL ID/MICOrdered By: Vidal Chun on 08-05-2024 Bacteria identified Cx Nom (Unsp spec) Growth [facility] Bacteria identified Cx Nom (Unsp spec) NAEEM AURIS Abnormal [facility] Comment on above: Identified by PCR Interpretation and review of laboratory results Abnormal [facility] HEPATIC FUNCTION PANELon Albumin [Mass/Vol] 3.9 g/dL 3.5 - 5.0 g/dL [facility] ALP [Catalytic activity/Vol] 396 U/L High 32 - 126 U/L [facility] ALT [Catalytic activity/Vol] 75 U/L High 10 - 52 U/L [facility] AST [Catalytic activity/Vol] 45 U/L High 10 - 39 U/L [facility] Bilirubin [Mass/Vol] 0.4 mg/dL [facility] 1.5 mg/dL [facility] Bilirubin.direct [Mass/Vol] 0.1 mg/dL NINF - 0.3 mg/dL [facility] Protein [Mass/Vol] 6.8 g/dL 6.4 - 8.3 g/dL [facility] Albumin [Mass/Vol] 3.9 g/dL Normal 3.5-5.0 [facility] Comment on above: Performed By: #### I PB, HFP, CHM7, MGO, CA ####[facility] (DEFAULT)[address] [place] [address] ALP [Catalytic activity/Vol] 396 U/L High 32-126 [facility] Comment on above: Performed By: #### I PB, HFP, CHM7, MGO, CA ####[facility] (DEFAULT)[address] [place] [address] ALT [Catalytic activity/Vol] 75 U/L High 10-52 [facility] Comment on above: Performed By: #### I PB, HFP, CHM7, MGO, CA ####[facility] (DEFAULT)[address] [place] [address] AST [Catalytic activity/Vol] 45 U/L High 10-39 [facility] Comment on above: Performed By: #### I PB, HFP, CHM7, MGO, CA ####[facility] (DEFAULT)[address] [place] [address] Bilirubin [Mass/Vol] 0.4 mg/dL Normal <1.5 [facility] Comment on above: Performed By: #### I PB, HFP, CHM7, MGO, CA ####[facility] (DEFAULT)[address] [place] [address] Bilirubin.indirect [Mass/Vol] 0.1 mg/dL Normal <0.3 [facility] Comment on above: Performed By: #### I PB, HFP, CHM7, MGO, CA ####[facility] (DEFAULT)[address] [facility] [place] [address] Protein [Mass/Vol] 6.8 g/dL Normal 6.4-8.3 [facility] Comment on above: Performed By: #### I PB, HFP, CHM7, MGO, CA ####[facility] (DEFAULT)[address] [place] [address] HISTOPLASMA AND BLASTOMYCES ANTIGEN, ENZYME IMMUNOASSAY, SERMon 08-05-2024 Histoplasma/Blastomyc es Ag Result Not detected Normal Not Detected [facility] Comment on above: Result Comment: No a ntigen from Histoplasma or Blastomyces detected. Falsenegative results may occur depending on extent of disease,and/or site of infection. Repeat testing on a new specimenif clinically indicated. Performed By: #### H IBAG ####[facility] (DEFAULT)[address] [place] [address] Histoplasma/Blastomyc es Ag Value Not detected Normal [facility] Comment on above: Result Comment: ---- ADDITIONAL INFORMATION This test was developed and its performance characteristicsdetermined by [facility] in a manner consistent with CLIArequirements. This test has not been cleared or approved bythe U.S. Food and Drug Administration.Test Performed by:[address] [address]Efd Director: Orlando Cruz Ph.D.; CLIA# [id number] Performed By: #### H IBAG ####[facility] (DEFAULT)[address] [place] [address] HISTOPLASMA ANTIGEN,URINEon 08-05-2024 Histoplasma Ag, Urine Not detected Normal Not Detected [facility] Comment on above: Result Comment: Hist [...] tests. Performed By: #### Y HISTG ####[facility] (DEFAULT)[address] [place] [address] MAGNESIUMon 08-05-2024 Magnesium [Mass/Vol] 1.5 mg/dL Low 1.6 - 2 .6 mg/dL [facility] Magnesium [Mass/Vol] 1.5 mg/dL Low 1.6-2.6 [facility] Comment on above: Performed By: #### I PB, HFP, CHM7, MGO, CA ####[facility] (DEFAULT)[address] [place] [address] MR Abdomen WO contraston IMPRESSION: 1. Changes [...] be secondary to narrowing/stricture at the choledochojejunostomy. [facility] Radiology Study observation (narrative) [facility] MR Abdomen WO contrastOrdere d By: Oumar Isbell on 08-05-2024 [facility] Work Phone: MRI ABDOMEN WITHOUT CONTRAST on 08-05-2024 MRI ABDOMEN WITHOUT CONTRAST Normal [facility] No Panel Informationon 08-05 Interpretation and review of laboratory results Normal [facility] Interpretation and review of laboratory results Abnormal [facility] PHOSPHATE, INORGANICon 08-05 Phosphate [Mass/Vol] 2.7 mg/dL 2.2 - 4 .6 mg/dL [facility] Phosphorous 2.7 mg/dL Normal 2.2-4.6 [facility] Comment on above: Performed By: #### I PB, HFP, CHM7, MGO, CA ####[facility] (DEFAULT)[address] [place] [address] Q FEVER ANTIBODYon 5 Q FEVER ANTIBODY Reactive Normal Negative [facility] Comment on above: Result Comment: Not diagnostic. Sample reflexed to IFAto determine Q Fever (Coxiella burnetii)phase I and phase II IgM and IgG titers. ADDITIONAL INFORMATION This test was developed and its performance characteristicsdetermined by [facility] in a manner consistent withCLIA requirements. This test has not been cleared orapproved by the U.S. Food and Drug Administration.Test Performed by:[place] [id number] Director: Orlando Cruz Ph.D.; CLIA# [id number] Performed By: #### L ABYQFEVT, YQFEV ####[facility] (DEFAULT)[address] [place] [address] Q FEVER IGM/IGG, TITER, Son 08-05-2024 Q FEVER IGM <1:16 Normal <1:16 [facility] Comment on above: Performed By: #### L ABYQFEVT, YQFEV ####[facility] (DEFAULT)[address] [place] [address] Q FEVER INTERPRETATION SEE COMMENTS Normal [facility] Comment on above: Result Comment: Acti ve Q Fever infections are characterized by a fourfoldincrease in serum IgG between acute and convalescentsamples and/or the presence of IgM antibodies directedagainst phase II organisms. In chronic Q Fever the IgGand/or IgM response is most often directed against phase Iorganisms, resulting in phase I titers that are greaterthan phase II titers.Test Performed by:[facility] [place], [place] [address]Nfc Director: Orlando Cruz Ph.D.; IA# [id number] Performed By: #### L ABYQFEVT, YQFEV ####[facility] (DEFAULT)[address] [place] [address] Q FEVER PHASE II AB, IGG 1:32 Abnormal <1:16 [facility] Comment on above: Performed By: #### L ABYQFEVT, YQFEV ####[facility] (DEFAULT)[address] [place] [address] Q FEVER PHASE II AB, IGM <1:16 Normal <1:16 [facility] Comment on above: Performed By: #### L ABYQFEVT, YQFEV ####[facility] (DEFAULT)[address] [place] [address] Q-Fever Phase I IgG Titer <1:16 Normal <1:16 [facility] Comment on above: Performed By: #### L ABYQFEVT, YQFEV ####[facility] (DEFAULT)[address] [place] [address], [place] [address] SURG PATH REQUESTOrdered By: Raquel Colin on 08-05-2024 Addendum o6qpnZNkWYPwyRLmSGUb Nlxhb iJnSDNszRKgJ8EnnlpcHWfiLW 3hQO5xyHqcoBWmvGIjHYWdUmZ bb5ons955eKYii4thJJBQnzxo rBi6rShaV68iq6S8HunbZ7icT XMxHXxhBSGeYEyfvKEoDFy2BB BhcGVydzEyMjQwXHBhcGVyaDE 3WCSfRW7ejoiaJFddQGduKBLj qxG9PRUqjETxG1FzJBWnRL4ca yxrHDS2YFvwIJIzWEC4TdHnPA Fan3Gjtma6KsXwgXTuOBedqqf nbFRbpljnWATrUvCqP47TTHnl fHVui1dyg4IaD2ogoAhxDQoac 1KxfI0mJAcDXASqzrVoZaHdUA PsOUOrVSffmJu5GS5uWNTrSFV yfchtvH4coMMopAEgdz7iPGKu kbQsGJssWBNwF7qjrmzeGW5tU WTjmkvnPCOqIrZmkWjzrsG9GA PuZPOSkVlfM79umRXvxPErc6o hrsCmqOIrh2NjwEI6WHIySUEx cTv6bXI0MwYRvNciiO1qaB1yw WefbG6gzDZwuWM1zkweLMxCWz ksIGluIHNpdHUgaHlicmlkaXp erXsiojRsBYTESPwlDU9mFVhd p6HeR2bibQvjGThtsWLcgXMuq 4YjLAQcHFTgzS2kWHBiVkmaSL 6kRTIwMWUiUCQee0FtQKRoFAB aoJprNA6VZXMRZEucBTTiBWYq zWIduLLMOL96OEBsJ3pfylebT FluAPHtg8SinF7flXrkFKmvqK 2ez7p9DEQtUKOVFWWuQHCwIAK 6HZFyXFCpGMQzWP2pMs0zSTxc Nr1lFME4YCcvX36hwK2faXScR E5UMLCwShWfUsPyRMbwFQgprI Nvm6FvqR0nBIOhRI36RVdHUph saYUtmKMkh1QgMRAcCGXaxU3k YAAwHsojGJ8hFPDhRMUsYPNvf 1QcHLGmDMTvkXbgMF5NILOEOD rmDSKlJPLlsYRvqAQFMH27TGB hI5fqwjliITbiULDri4NgyL4z sYsnHkJtXBvdJAo9rUCoq58rP RGtHDFIIbIsFEZtZFY5WP91PI rbC79lzM6kmWEvYH9NGQMgAzG aRfHPxPuskODorQAspuSql0W7 SYPnvMJjFVquQVfzPWA0UAMgw sCUUZ8LRBytpXQ0ZJLet4KaIp IyidRpzUXqdwXrKCY7QN6uFVT foUQqbuNpRUS0UZBwBBTUIrOP i49jVQJmBNQGxfThBSVttCqvk RD8bcD8nX5bLFwYTWViAoXReE HcoIQkt0NqxT3tjNCmutYyAVa 7uNF5ZWBhdB5aZRCqX9mKJRFm yoYyrTLclUBiKPNodG2iqENxM y7tqDNasFvvERVleRXnSRwyvB dhwZLuuFpfWw5zYTqyXTBtj2D gLICaWGH4j8FaRXWuvqOajRha yFLygIAyoBLdb1Ikpn7tLArob BBjxY82dLZgpj93LJDvBIZmI6 FyZGVkIGFzIGludmVzdGlnYXR ms07wdATbguOhj0NfnhEhMZWp L4shXVptALA6 [facility] Work Phone: Case Report Surgical Pathology R eport Case: [id number] Authorizing Provider: Dipak Banerjee MD Collected: 08/03/2024 01:12 PM Ordering Location: [facility] Received: 08/03/2024 02:23 PM Pathologist: Raquel Colin MD Specimens: A) - TISSUE, ileal polyp-forceps B) - TISSUE, random pouch bopsies-evaluate for pouchitis, r/o CMV [facility] Work Phone: Clinical History t7uhsOBkEHTyqFFxKVMy Nlxhb gLmZNPriJOrB1NsiwlbVKkwOE 3qLB7gjHsjxTNeyRLwHTAfKkK zs1yrx864jIAjk6ifMAJGcsns uZr1uUssI20id5X2XmyaM7zvG SBhNKavNQJuEHiuxGRhDDq9ZC BhcGVydzEyMjQwXHBhcGVyaDE 5UQNaRZ5lqszaDZizTRvcVBLd uiU5LUVyqQSaO2FoSGObUV2ot xfpVKX1BYovVOEqCTE5JhBmIV Yvq3Xgmey7QjBlxBk3v0gnDYX xGLLxoWxkx7akHSM9BFDitRAt B3vckS6qHRThPB3bctoll1voV YlkHYvvNAHxzZC8npJ1WOTopF BqW7QzwR0pPJKdEFJoelJnbEn hzL3qJsKaNXguMkGfWVLuwCPr lKKpSq3rVAJlqRVliYAmjg9dG VJmhwZQFLFzSYKZRTDzF4VmHN pui2Thwjo4WXUEiZHcjhW3gGS vSJBamDl2wQFzDGBTahypFKZ3 IKAqzOKqm0TvbednL8spmTMlA 4n3wZLgODCEc2dxfnDoFZ0dGH OzIQDWfTUwzE2nqOOjf7BsgEd 9EJUrhb98DTF2KLF5wuGbrBPl rA9vGrNohCMmyA== [facility] Work Phone: For Immediate Release to Patient's MyChart? Yes Yes [facility] Work Phone: Gross Description j4axyTSgUKLzx5wqDPHz bGFuZ zEwMzNcZnRuYmpcdWMxIHtccn ToZQjcaBynQPDcTPGjMU5cpOd iyMv0ePcwHTLceaC9bWAlBMrf w3pbRAL3h4fgmacfLGNzRGwqO n3ikZIwnVlrTeFxIACpDNf7jG 38JKSpcM2zkUPgKLr7GADpfYL cmgKhBnSaWQLtkVWwaNH0LBQl MH5fkutfSYicLKrlQZAnpfW2H FLimXBpI4HcLAWcTA8rwtvbGW O0OVizMPIoSYF9RiTbASAst6C zvrn1WpRtmRIfDYsjjAZncsle czIwICAgVGhlIHNwZWNpbWVuI ZztKHHpW2XyvzIxAMoxRFU4ys Sgmu0pMUNmfXIoODZidOXuTUC dukHueH9mxiBuk3o7qJU1xRFq kJS0tUMloOldQJ5hpMWlEQ1cW JYiE7Wlq4uhcgQijM1eSNNdBB xwYXJccGFyIEEuXHRhYiBUaGU lk9CvS0jhTS4qqAIpWNWhhFmo SHOjGGCmmTniDGhptP6bzRVeZ TOww7VoWVFnLvMflbZpC40yj8 ckmMGmy6Cdx07qJGJhZjYhfHM lNRMenjRzh54ia3JuwCgue4Zp IHdoaWNoIGlzIDAuMyBjbSBpb bTcfbHeuAVwyFTsbR6fgjFpu4 4uICBURSAxIFxwYXJccGFyIEI fUDUkbSZhZCNsXQFxbFRfdR3p drPwoxJtBKNxD38skLNbUSGqZ O8xj83fwF47T0aqOa6ih8bbvp MmMCB6LVu0UBAjUJTjxoDsv0J nrWd7oSCyEQHfkxKQYYAaCYXq IZGxs96wdIQ4azUkElJukQxiK tZfQ22ixnLuDP3pNOAtil2niG 3gXIPhDcNuzSyvy9XuUQYzva2 lCDZaSpH7vTT0krOuXuKcN72g hE4mE6LhEDPcw6XtKIbjIY3ma J6oXvDvMDTsFSDnzQLqJMDauk LYSXVuDDVaDS1nhPb1LFtmCns ODNMnNcQ2KDI8PXuhZAZtda56 VZW8HmVis6M8AAKfEkStJUKtK F2dlKwhJAZwJA1bOCZaT4vazX 3irgq9XmHiMXLiVsI2IOFpptX 8Ulv9MHCbSSeyp6oml4DkSNTh CWg0fDvuQoKtWEPtb0wxyiHgC lCsIYIhGPSrWEAbeJQqB847q9 njt8mphxClnBK5ZRBmFIW8THa squUowfB0BTrbgHDcHiQ1QFaj iiTkZNzxfwJktvYkOpf9LWIeZ 709SFK9tAylq0liFJN8FGTbZX HoBlIhNd6yrDPqQ005SBGkIKE KBUNpeAe5RNGnfgHdgeQwcZKW o774X007s7rcAFHbzgBudKlAc tkyy8yyL343GUXmsCAnqdJrRx SdRZCsdVWzqLP5UHXeOT6wbha kJAqeTUlhJBFspaT8NDXuhGWr O3LzXZGgAQ7eectnZHU8AJijN MQvKMB6GnQoAZMkt8Zxoxy3Mv Fqgg2rjn06GIP1w2JvwNmlBBB 7VFR0ImVuKe2acJDcORNiXW6y IzNhuTOvMKFtex15eTiiGYxox iZxpL0vGbCsAFLcrSUlVXJvNZ 9ceQHoIBGxbA3jjomiJRBhIpD vpfkpAWYkuVlrsqVrDf7uaDfg SVP6DIxkV4keiS2aXhJ8NLwuU 1xevX2pSEk1WFyrhOZ3QXAlmO 4kCP6nfdrix9etSMejXAnkLJZ kihY0skM2PIVnaDTcA9RqeF0a IFOnQN6cugons5jzCNH2LUnmP YYaJTQ3LaEaZDCiq4Glqzn8Ie Dqd3ZzxMXeBCceL08sd991KAX edmYeG7bktMTmoqqbfAQdhtmq OPueesO5ZSVxNDEvLSdbLBEmQ GZzMjJcbGFuZzEwMzNcaGljaF dqARhxDyEtWVNqJHtlH7anUuR vJrLeJxHXri0lb9OfUUDipqZ6 eUnnKFEli3Mhs4IfZkGENAp7o ImcQTMgkMnnFtDxjv9ebBRihK 0= [facility] Work Phone: Images [facility] Work Phone: Microscopic Description h7jxwLXyWIHyaYYoIUOtJwicb pItEDDjgTSvY7OrasdeFEswWE 9dUW3mdTqmkAJfaVPbLNWfAfS xp6eyr727qIUcv7tcWEXXxmxi mGu0mPoiZ33iv4H1WfwnH99hw IVbNPD7FWNhBAItiBEmLRAeWI A9LJSonHHgH2ujWLKfIE3uwne xEPndWTolRDOnmXL1CXLqmTEw X7EhWBWnNFptWTJxinz9UaPrJ m3siCOehGpcNMnlWROuORQpAG gaAXZiBgCyGRXdiMOzj6Vjj7O fXsPvaHGzyW7bxOrwvcT3QGLw lNEgLl1qbQOuSlAduJKlhX== [facility] Work Phone: Pathologic Diagnosis d8kzqDWaIOYlgEAqUSW wNlxhb hAdDIBwgGPyS4CgplvnCEdyWO 3bSM9tfJhhdOMouZFoYOTsEkS zv2knz820gFRwv6gmSQYXxuho gGe5o8ztNQTWhS4sl8k8rO18H GGveY6nzWPxMKlhkwXvFHhgek JwbnDaSow8EBG4kZhkDuqzqNZ 7mNTtwFS8KBoit8JroMguaKjb ZkS6UTTpUDEfKLzqu1S4LS0ud EO7YPdiAVL7DLlko4SqSM9wES s3BYdrr9CugGArkRT5SVtnk9P pCFHxpXruRNAyeC8nZpGoPQvn dmVsbmZjbjIzXGxldmVsamMwX BkawaPli0SudnMwaIS4DUdrbi XtkQF7cJjsFIVyJ8B1E855BFz sjrUahwQzPmYiwoz3XARcLFFy CmUznSfhElKtUwtdTXZ8a7xcy WU8vEE7GOwssAW6YVauNvFvN6 ixWCOpzC9tD54hG6bkNURmuFq bVZqpJQVebKT4NBA1BGIjv2jk CQKlgFNldPHzBjUeYBphZmi7x 1zwONDdqI84rEXtuwR0ySjgIY xmczIwfXtcbGlzdGxldmVsXGx gceQjbjTdJzSzuEK9KBxsLjCg FoBmeTU8IJuuHkXziIU1YZtxc HCxjXO7VOzlcRZ6TYq5VEc7HF tgWQyyAni6zZymkPK5RYnsjQ8 xFTNmF48jAfBiQfWvEZ43JXqk o5GsUUCaeZjfDSDkxF3gJuXfI GxldmVsbmZjbjIzXGxldmVsam JiMBpkfpWet2DqdyTzfOQ8VBa yzaNauOO8xSuqRYDlY3W1I088 EIvmcaSzolYlXpFgplc1XMZwG TViDkS5i7nenHO3sJK7JRxqkJ N2XTdrRiDhA3ceINIcqV4pU79 mO6ysLJMgxUkhSCmjGUBmcZI8 NCJ5MGYjv7jnKYMvoRUjyRYxZ qHnOGvhXsh8r5hjIUEeqA47bL WurhL9zHlbQTkwbfIqlDjmfYf zdGxldmVsXGxldmVsbmZjMjNc qKM5YJpnVpNnLaMbbQL4BErwB xKagJO0ZNqclYOwxZN6FJzcpB T8JVf2HZx3UIgiMZaaUfc3iUx hsHU1AEvioH1iFQJtZ02rWjZo UsOeQH35QDpzn5ZbUFDvfEpeB IDheV5qHaXrJBgyvnCysyNolh VrUCppwkNnqvJhBZoothNaa5F omoGddCR3JJgfuuQwxQJ5kEfr VDXdG8X0A171WHjysiShseTpJ fXqmkq5HPHlSXTjCbO5d0zsmS E6yLE1FCtgrGG5YEwwLoQqQ1d oMEUauQ5dC09qY5fhBKLbtDxp DUvpZJUdeCA2OXZ1ZRUlr5viB FYbrLVuyRScUfTyDKauIyk5f6 dxYVYqmR30qZZesyT5nWbnXTe mczIwfXtcbGlzdGxldmVsXGxl dxYoedGoClIkaXA5OFcpLrHfT pFcqJW2JHqjCcCnuFS3XSkmmT NboJV8NIwrhVO4WTv3YLq0HMe iIBlfLii3kLxetWP3DZlllC0w OHCqA93bErKyCdGiSI63o1uhk ED3ADayz7EpJXC7IIUaATvgVs lcbGlzdHRlbXBsYXRlaWQtMXt ciCgbtN9lyVIgC62rhJnzwCa8 YnJpZHtcbGlzdGxldmVsXGxld kFhkyZxKtBjqOT9NLcqOrUrDf SylQY9GMjbRrNjyKG3RFtcvQK oqTH6IPwqsZV4ECx3VKz4SEnv IQssSbs9sUjteTI0BZvrtO1mB ROiT50zFvVuDgQqJOjjwSY9RV milJN1CU92YTuid1GbTSFjoJu wZPQvhN8lLgEuSOqnjeOaubFj bjIzXGxldmVsamMwXGxldmVsc 4KvkrZkuZI5DZqooyXzxZU5sK txJQSlV1E2K486VGoxzpBywyD fGeEpdlh2YBIyVBTlLqV6y9zk hWA5yDN1QEafsLA7CQlbHhSzJ 6biMDAdrR6hL26rX6mwRUBjyP uzUJpuRAFgiOI4ZUY5LYSjd4b sZXZlbHRleHRcJzAxXCdiNzt9 c0fvACZjtT32xDHfwjW0nDhsY VxmczIwfXtcbGlzdGxldmVsXG gmrjPlfxLiYaDgiFI5HGitSvW gBnHqlUH5QGqcSjVdoWI4XYad iGGeeBY0FJmqbFU9NCg2GLz1X HeqGIuuDzs3zCdmgOD2APihuK 1iDSFqX15nYhCiSbIqMH72NOy za1OrCIRjnMrnSWGhpK0dEfCm XGxldmVsbmZjbjIzXGxldmVsa pGtDIjeuxXam9IjjhJphIW1HU bwmjNxnTH2pJlsVALjW5D2X77 3LQgqtfWtrzZgGkOpuvf7KCSv BUWeSaB0c5cfkDS1vJF0OYbiu IC3AJunWlEuJ0jdEQNroA8cA3 2dO7njSSMkpFcvZWrzXOUjiAA 1LOM4EKSyq6jnRYIbqSDnmONo DjFsEQaeErb2v5ttFTVkbA73u RNbmuI2oNkvWSjycaBamKwhaN lzdGxldmVsXGxldmVsbmZjMjN tjYV3MUwvViOeAiKhuMQ2RIfg AjDqhVF8DUjyaWAomVB2FRaor DC5BOp4DNu0SJypMWqoHav2zI wqkNP1AMpdiI4aXPZmZ08aEuZ xPrYrAC72JHxzv1VxEXJvoLid FSKmhS0kCgXeHNnoqgMjkyZmq jIzXGxldmVsamMwXGxldmVsc3 UegiUncNR5RHylvnMcpBR5gPj jNVMwU0L0G215EQldxgGupmXy FyJsyvd4PZTlFCFuLdE4s4uqg XW0dBL5OZzflDJ3RTbaCpUnV0 cgLTHmzI5eL35bR3buSWHzaWi pRLrdAWDraEN9WJE9AVKjz2zh LZJdzXTnwLHnTeTpXEgnJkn8i 5dyEEIoiM02rWNgbpA2hVzgSK flmeInqF42g8kmBQmhn0QncmB owfqyTBBrMtdph2rsZZngd0At zgLsegzdJFgkoKN2mWAvUGk2U zF8YxGreTfdoB34OUPpaQSgC9 27jpDoIQuwZP73NTqrpNslfI3 4EWLvnHSjZXztp4KrVKI2JKXz LJigPejntJeyjE90ZEMkxSIhW 717flZzRZdjXs60NWZssBQfdy JdYzKmGRIdqMXijLC1OZBlYT2 ofdnhEIznMMpmKBMtldZ9QCYk vSXzT1FfVKPwUU5gatxiDDB3V MgjEYEaDAZ4McMjPFYfh5Qbja q7EfQwkYMrWRsrtVFlheikPSX qWkYgR1QiRQUgGESlQApgHEop xBWwxAjyEPjkyUggzA8qYYMka SwbSALjzY6ia6o5MIPwrumeuP E6JPqmlJA3MLmkpB4kEnUgtUT xXGlsdmwwXHBsYWluXGJcZnMy QLepCaCoYJ2ovQDzdJYtzU21C KO1rS9niGVkvMRla8EmTP0zUU OqC84cItxzEI11IRGdiOxukC8 uhLGhU0mzbfqjANPgrdNZSNsj uGq7XHRgw4LeDFzzmEcjm8acO VGzfrpjpLnoQHBoBIaozC88UR xtjhGewGTmLCznWRjwrW9zTVV uIFNtYWxsIGludGVzdGluZSwg tM60F5omXJWmrnUdpGywMncgz CY0IzezJGGopUnhTtNcEdxzCX BcbGluMzYwXGxzMlxpbHZsMFx zjYScmqphEHUcMtIkP7LxCWia uVItmQqqSRijyPMya2XiTEjte HikFl6yKGlgzSsctT0wnVJfZ4 W0BTItckRrDJ5xEBBhh36qiVW jLK1wS7Z7zFWkKGEiabFmbUXo bGFzaWFccGFyfQ== [facility] Work Phone: Professional Interpretation Performed at: [id number] USmu5kzZCUztTPeJpBnJzXfGy VeZpmwbKEoFMZpQmAhi1nxe72 6xJTcn9jbAYWvOaT5sBTsOLOb eOQoS714RXKjBXkdp6tvx9RrL LQukHStt0R6VCZTghdiaCx5bU noU77da5Y7NjxiQ7jlBUUsNME gQ4QlJO1kOLQiTey1WNP2FEC4 OJFmDYYeM0JiLF3pJAMdkTCeU Ad2o8ujvPanMYZbFLT0l2ctOC kvxeRxGZ1eju6ueTh0x7qlalE zIDXlTMHcqIYDUIMzA6RpdLog Sp8yvZf3oInpJslgXKN5Yzo3S W0yrl93mrz5oVqrIWZkwxdqJf Y7MKijBJDrawfjMWl1QWaaQBV fcGU9PTGfjYLjI1ExDYTnLX0e smf4CSC4XWtyTKHuSqY9EEToe VJsNCTwaIqgQBfqf418INZ6Cv QiWA6pV9Gdo7J4nB4ynSQkEYN gyIQrVsTdQUTkjw1daKVdHVkz t9OpBOT4hdO0lVLzaMUnCTKfX K09Cghfh0JkXjynRIC7CIRgrw Aoh8Own2fhOzJoktZgO3trT3Y uRYKkOIEeLSErRiZcmcAxy5So t5BzzDQsiLs8r8daWSTjMGPjb Bjim8azQOT0GTNaW8N4aPLcb0 fpCCcvGGOlmRW7xvJ4KKZjiDM lK7JgdY9lDWAhSS7qila0g9um XML9PTxrRJAhPsK9ujG2VQCxx AXyORLubYpnCTlbs372BIA0Mh QqISQtr2OyZ0UgtHyaV00mmLl dT24tJYJmgEuphY0yzEzswE0d ZjBcZnMyNFxwYXJkXHBsYWluX GYxXGZzMjJcbGFuZzEwMzNcaG ssbHylTCruKrMqYDNpDValI3n hJeOwOjZeUwYXQ8ElA0BMJxCA VC3OLBiUVOyqG5VMDLUVZHTMX P9GX8CGASfZOr6ACNLNFhpuzR EcLOZpUXYWCCI7GHXuoIsjYMW sKWIkpcVOv3w6yVY4nekxB1oy rnV5SpIoAIajBLS4 [facility] Work Phone: [facility] Work Phone: TACROLIMUS LEVEL, TROUGH (NE E DRUG LEVEL)on 08-05-2024 Tacrolimus (Bld) [Mass/Vol] 5.9 ng/mL Bone Marrow Transplant: 5.0-15.0 Kidney/Pancre atic Transplant: 0 to 3 months: 8.0-10.0, 3 to 12 months: 6.0-8.0, >12 months: 4.0-6.0 [facility] Method performed is a chemiluminescent microparticle immunoasssay on the [employer] i2000. The range is based on experience at [facility] and users should be aware that target concentrations vary widely depending on concomitant therapy, time post-transplant, and desired degree of immunosuppression. [facility] Tacrolimus, Trough 5.9 ng/mL Normal Bone Veronique ow Transplant: 5.0-15.0 Kidney/Pancre atic Transplant: 0 to 3 months: 8.0-10.0, 3 to 12 months: 6.0-8.0, >12 months: 4.0-6.0 [facility] Comment on above: Order Comment: Pleas e draw at specified interval PRIOR to dose. Do not hold dose to wait for level. Specimens batched twice per day, (M-F) and once per day weekendsMethod performed is a chemiluminescent microparticle immunoasssay on the [employer] i2000.The range is based on experience at [facility] and users should be aware that target concentrations vary widely depending on concomitant therapy, time post-transplant, and desired degree of immunosuppression. Performed By: #### T ACRO ####[facility] (DEFAULT)[address] [place] [address] CALCIUMon 08-04-2024 Calcium [Mass/Vol] 9 mg/dL 8.6 - 10. 5 mg/dL [facility] Calcium [Mass/Vol] 9.0 mg/dL Normal 8.6-10.5 [facility] Comment on above: Performed By: #### H FP, IPB, CHM7, MGO, CA ####[facility] (DEFAULT)[address] [place] [address] CBC AND ELECTRONIC DIFFon Basophils (Bld) [#/Vol] 0.05 10*3/uL 0.00 - 0.09 K/uL [facility] Basophils/100 WBC (Bld) 1.2 % [facility] Differential cell count method Nom (Bld) Electronic Differential [facility] Eosinophils (Bld) [#/Vol] 0.04 10*3/uL 0.00 - 0.48 K/uL [facility] Eosinophils/100 WBC (Bld) 0.9 % [facility] Erythrocyte distribution width (RBC) [Ratio] 16.7 % High 10.9 - 14.3 % [facility] Hematocrit (Bld) [Volume fraction] 39.8 % 39.6 - 48.8 % [facility] Hemoglobin (Bld) [Mass/Vol] 12.3 g/dL Low 13.4 - 16.8 g/dL [facility] Immature granulocytes (Bld) [#/Vol] 0.04 10*3/uL NINF - 0.07 K/uL [facility] Immature granulocytes/100 WBC (Bld) 0.9 % [facility] Interpretation and review of laboratory results Abnormal [facility] Lymphocytes (Bld) [#/Vol] 0.51 10*3/uL Low 0.83 - 3.57 K/uL [facility] Lymphocytes/100 WBC (Bld) 12 % [facility] MCH (RBC) [Entitic mass] 31.1 pg 26.1 - 33.3 pg [facility] MCHC (RBC) [Mass/Vol] 30.9 g/dL Low 31.9 - 36.5 g/dL [facility] MCV (RBC) [Entitic vol] 100.8 fL High 79.0 - 94.5 fL [facility] Monocytes (Bld) [#/Vol] 0.35 10*3/uL 0.24 - 0.93 K/uL [facility] Monocytes/100 WBC (Bld) 8.2 % [facility] Neutrophils (Bld) [#/Vol] 3.27 10*3/uL 1.57 - 6.19 K/uL [facility] Nucleated RBC/100 WBC (Bld) [Ratio] 0 % NINF [facility] Platelet mean volume (Bld) [Entitic vol] 10.3 fL 8.7 - 12.3 fL [facility] Platelets (Bld) [#/Vol] 341 10*3/uL High 146 - 337 K/uL [facility] RBC (Bld) [#/Vol] 3.95 10*6/uL Low [facility] Segmented neutrophils/100 WBC (Bld) 76.8 % [facility] [facility] WBC (Bld) [#/Vol] 4.26 10*3/uL 3.73 - 10. 10 K/uL [facility] Basophils (Bld) [#/Vol] 0.05 10*3/uL Normal 0.00-0.09 [facility] Comment on above: Performed By: #### L AB980 ####[facility] (DEFAULT)[address] [place] [address] Basophils/100 WBC (Bld) 1.2 % Normal [facility] Comment on above: Performed By: #### L AB980 ####[facility] (DEFAULT)[address] [place] [address] DIFF STATUS Electronic Differential Normal [facility] Comment on above: Performed By: #### L AB980 ####[facility] (DEFAULT)[address] [place] [address] Eosinophils (Bld) [#/Vol] 0.04 10*3/uL Normal 0.00-0.48 [facility] Comment on above: Performed By: #### L AB980 ####[facility] (DEFAULT)[address] [place] [address] Eosinophils/100 WBC (Bld) 0.9 % Normal [facility] Comment on above: Performed By: #### L AB980 ####[facility] (DEFAULT)[address] [place] [address], [place] [address] Hematocrit (Bld) [Volume fraction] 39.8 % Normal 39.6-48.8 [facility] Comment on above: Performed By: #### L AB980 ####[facility] (DEFAULT)[address] [place] [address], [place] [address] Hemoglobin (Bld) [Mass/Vol] 12.3 g/dL Low 13.4-16.8 [facility] Comment on above: Performed By: #### L AB980 ####[facility] (DEFAULT)[address] [place] [address], [place] [address] Immature Grans % 0.9 % Normal [facility] Comment on above: Performed By: #### L AB980 ####[facility] (DEFAULT)[address] [place] [address], [place] [address] Immature Grans Absolute 0.04 K/uL Normal <=0.07 [facility] Comment on above: Performed By: #### L AB980 ####[facility] (DEFAULT)[address] [place], [place] [address], [place] [address] Lymphocytes (Bld) [#/Vol] 0.51 10*3/uL Low 0.83-3.57 [facility] Comment on above: Performed By: #### L AB980 ####[facility] (DEFAULT)[address] [place] [address] Lymphocytes/100 WBC (Bld) 12.0 % Normal [facility] Comment on above: Performed By: #### L AB980 ####[facility] (DEFAULT)[address] [place] [address] MCV (RBC) [Entitic vol] 100.8 fL High 79.0-94.5 [facility] Comment on above: Performed By: #### L AB980 ####[facility] (DEFAULT)[address] [place] [address] Mean Cell Hgb 31.1 pg Normal 26.1-33.3 [facility] Comment on above: Performed By: #### L AB980 ####[facility] (DEFAULT)[address] [place] [address] Mean Cell Hgb Conc 30.9 g/dL Low 31.9-36.5 [facility] Comment on above: Performed By: #### L AB980 ####[facility] (DEFAULT)[address] [place] [address] Monocytes (Bld) [#/Vol] 0.35 10*3/uL Normal 0.24-0.93 [facility] Comment on above: Performed By: #### L AB980 ####[facility] (DEFAULT)[address] [place] [address] Monocytes/100 WBC (Bld) 8.2 % Normal [facility] Comment on above: Performed By: #### L AB980 ####[facility] (DEFAULT)[address] [place] [address] Nucleated RBC 0.0 /100 WBC Normal <=0.2 [facility] Comment on above: Performed By: #### L AB980 ####[facility] (DEFAULT)[address] [place] [address] Platelet mean volume (Bld) [Entitic vol] 10.3 fL Normal 8.7-12.3 [facility] Comment on above: Performed By: #### L AB980 ####[facility] (DEFAULT)[address] [place] [address] Platelets (Bld) [#/Vol] 341 10*3/uL High 146-337 [facility] Comment on above: Performed By: #### L AB980 ####[facility] (DEFAULT)[address] [place] [address] RBC (Bld) [#/Vol] 3.95 10*6/uL Low 4.38-5.83 [facility] Comment on above: Performed By: #### L AB980 ####[facility] (DEFAULT)[address] [place] [address] RBC Distribution 16.7 % High 10.9-14.3 [facility] Comment on above: Performed By: #### L AB980 ####[facility] (DEFAULT)[address] [place] [address] Segs + Bands Auto 76.8 % Normal [facility] Comment on above: Performed By: #### L AB980 ####[facility] (DEFAULT)[address] [place] [address] Segs + Bands,Absolute Auto 3.27 K/uL Normal 1.57-6.19 [facility] Comment on above: Performed By: #### L AB980 ####[facility] (DEFAULT)[address] [place] [address] WBC (Bld) [#/Vol] 4.26 10*3/uL Normal 3.73-10.10 [facility] Comment on above: Performed By: #### L AB980 ####[facility] (DEFAULT)[address] [place] [address] CHEM 7 (LYTES,BUN,CREA,GLUC) on 08-04-2024 Anion gap [Moles/Vol] 14 mmol/L 7 - 17 mmol/L [facility] Chloride [Moles/Vol] 105 mmol/L 98 - 10 8 mmol/L [facility] CO2 [Moles/Vol] 22 mmol/L 21 - 31 mmol/L [facility] Creatinine [Mass/Vol] 0.94 mg/dL 0.70 - 1.30 mg/dL [facility] eGFR, CKD-EPI, Male - PINF [facility] Comment on above: Reported eGFR is bas ed on the CKD-EPI 2020 equation using creatinine, age, and sex. Glucose [Mass/Vol] 92 mg/dL 70 - 179 mg/dL [facility] Osmolality Calc [Osmolality] 290 [facility] Potassium [Moles/Vol] 4.9 mmol/L 3.5 - 5.0 mmol/L [facility] Sodium [Moles/Vol] 136 mmol/L 135 - 145 mmol/L [facility] Urea nitrogen [Mass/Vol] 23 mg/dL 7 - 25 mg/dL [facility] Urea nitrogen/Creatinine [Mass ratio] 24 mg/mg [facility] Anion gap [Moles/Vol] 14 mmol/L Normal 7-17 [facility] Comment on above: Performed By: #### H LORI JOSEPH, YISSELM7, [place], [place] ####[facility] (DEFAULT)[address] [place] [address] Chloride [Moles/Vol] 105 mmol/L Normal 98-108 [facility] Comment on above: Performed By: #### H LORI JOSEPH, CHM7, MGO, [place] ####[facility] (DEFAULT)[address] [place] [address] CO2 [Moles/Vol] 22 mmol/L Normal 21-31 [facility] Comment on above: Performed By: #### H JAKE IPEd, CHM7, MGO, [place] ####[facility] (DEFAULT)[address] [place] [address] Creatinine [Mass/Vol] 0.94 mg/dL Normal 0.70-1.30 [facility] Comment on above: Performed By: #### H FP, IPB, CHM7, MGO, [place] ####[facility] (DEFAULT)[address] [place] [address] eGFR, CKD-EPI, Male > Normal >=60 [facility] Comment on above: Result Comment: Repo rted eGFR is based on the CKD-EPI 2020 equation using creatinine, age, and sex. Performed By: #### H FP, IPB, CHM7, MGO, [place] ####[facility] (DEFAULT)[address] [place] [address] Glucose [Mass/Vol] 92 mg/dL Normal Nonfastin -179 mg/dL; Fastin-99 [facility] Comment on above: Performed By: #### H FP, IPB, CHM7, MGO, [place] ####[facility] (DEFAULT)[address] [place] [address] Osmolality [Osmolality] 290 mosm/kg Normal 278-305 [facility] Comment on above: Performed By: #### H FP, IPB, CHM7, MGO, [place] ####[facility] (DEFAULT)[address] [place] [address] Potassium [Moles/Vol] 4.9 mmol/L Normal 3.5-5.0 [facility] Comment on above: Performed By: #### H FP, IPB, CHM7, MGO, CA ####[facility] (DEFAULT)[address] [place] [address] Sodium [Moles/Vol] 136 mmol/L Normal 135-145 [facility] Comment on above: Performed By: #### H FP, IPB, CHM7, MGO, CA ####[facility] (DEFAULT)[address] [place] [address] Urea nitrogen [Mass/Vol] 23 mg/dL Normal 7-25 [facility] Comment on above: Performed By: #### H FP, IPB, CHM7, MGO, CA ####[facility] (DEFAULT)[address] [place] [address] Urea nitrogen/Creatinine [Mass ratio] 24 mg/mg Normal [facility] Comment on above: Performed By: #### H FP, IPB, CHM7, MGO, CA ####[facility] (DEFAULT)[address] [place] [address] CMV BY PCR, QUANTITATIVE, BL OODOrdered By: Felicity Marino on 08-04-2024 CMV DNA JACKY+probe (P) [Log units/Vol] [facility] CMV DNA JACKY+probe Qn (P) [facility] Interpretation and review of laboratory results Normal [facility] This test was perfor med using a real time PCR assay. The dynamic range for this assay is 34.5-10,000,000 IU/mL (1.54-7.00 Log IU/mL). [facility] EBV BY PCR, QUANTITATIVE,BLO ODOrdered By: Flaca Hinojosa on 08-04-2024 EBV DNA JACKY+probe (Bld) [Log units/Vol] [facility] EBV DNA JACKY+probe (Unsp spec) [#/Vol] [facility] Interpretation and review of laboratory results Normal [facility] This test was perfor med using a real time PCR assay. The dynamic range for this assay is 35-100,000,000 IU/mL (1.54-8.00 Log IU/mL). [facility] HEPATIC FUNCTION PANELOrdere d By: Ana Young on 08-04-2024 Albumin [Mass/Vol] 4 g/dL 3.5 - 5.0 g/dL [facility] ALP [Catalytic activity/Vol] 476 U/L High 32 - 126 U/L [facility] ALT [Catalytic activity/Vol] 72 U/L High 10 - 52 U/L [facility] AST [Catalytic activity/Vol] 51 U/L High 10 - 39 U/L [facility] Bilirubin [Mass/Vol] 0.4 mg/dL NINF - 1.5 mg/dL [facility] Bilirubin.direct [Mass/Vol] 0.1 mg/dL NINF - 0.3 mg/dL [facility] Interpretation and review of laboratory results Abnormal [facility] Protein [Mass/Vol] 7.1 g/dL 6.4 - 8.3 g/dL [facility] Comment on above: Results inconsistent with previous results [facility] HEPATIC FUNCTION PANELon Albumin [Mass/Vol] 4.0 g/dL Normal 3.5-5.0 [facility] Comment on above: Performed By: #### H FP, IPB, CHM7, MGO, CA ####[facility] (DEFAULT)[address] [place] [address] ALP [Catalytic activity/Vol] 476 U/L High 32-126 [facility] Comment on above: Performed By: #### H FP, IPB, CHM7, MGO, CA ####[facility] (DEFAULT)[address] [place] [address] ALT [Catalytic activity/Vol] 72 U/L High 10-52 [facility] Comment on above: Performed By: #### H FP, IPB, CHM7, MGO, CA ####[facility] (DEFAULT)[address] [place] [address] AST [Catalytic activity/Vol] 51 U/L High 10-39 [facility] Comment on above: Performed By: #### H FP, IPB, CHM7, MGO, [place] ####[facility] (DEFAULT)[address] [place] [address] Bilirubin [Mass/Vol] 0.4 mg/dL Normal <1.5 [facility] Comment on above: Performed By: #### H FP, IPB, CHM7, MGO, [place] ####[facility] (DEFAULT)[address] [place] [address] Bilirubin.indirect [Mass/Vol] 0.1 mg/dL Normal <0.3 [facility] Comment on above: Performed By: #### H FP, IPB, CHM7, MGO, [place] ####[facility] (DEFAULT)[address] [place] [address] Protein [Mass/Vol] 7.1 g/dL Normal 6.4-8.3 [facility] Comment on above: Result Comment: Resu lts inconsistent with previous results Performed By: #### H FP, IPB, CHM7, MGO, [place] ####[facility] (DEFAULT)[address] [place] [address] L501.5101on 08-04-2024 GGTP 210 IU/L Abnormal 0-65 [facility] Comment on above: Order Comment: Test( s) 668192-[id number] (FK506), Bloodwas developed and its performance characteristicsdetermined by [facility]. It has not been cleared or approvedby the Food and Drug Administration. Result Comment: Perf ormed at: - [facility] [id number] Director: Sergio Machado MD, Phone: [phone] at: [facility] [id number] Director: Red Graham PhD, Phone: [phone] Performed By: #### L 3380.1000, L501.5101, L501.5200, L500.4050, L501.2300, L501.4700, L100.0100 ####[facility] [id number] [place], [place], [id number] MAGNESIUMon 08-04-2024 Magnesium [Mass/Vol] 1.7 mg/dL 1.6 - 2 .6 mg/dL [facility] Magnesium [Mass/Vol] 1.7 mg/dL Normal 1.6-2.6 [facility] Comment on above: Performed By: #### H FP, IPB, CHM7, MGO, CA ####[facility] (DEFAULT)[address] [place] [address] No Panel Informationon 08-04 Interpretation and review of laboratory results Normal [facility] PHOSPHATE, INORGANICon 08-04 Phosphate [Mass/Vol] 3.4 mg/dL 2.2 - 4 .6 mg/dL [facility] Phosphorous 3.4 mg/dL Normal 2.2-4.6 [facility] Comment on above: Performed By: #### H FP, IPB, CHM7, MGO, CA ####[facility] (DEFAULT)[address] [place] [address] SCREEN, VREOrdered By: Wenceslao Banerjee on 08-04-2024 Interpretation and review of laboratory results Normal [facility] Vancomycin Resistant Enterococcus Negative Negative [facility] TACROLIMUS LEVEL, TROUGH (NE E DRUG LEVEL)on 08-04-2024 Tacrolimus (Bld) [Mass/Vol] 11.8 ng/mL Bone Marrow Transplant: 5.0-15.0 Kidney/Pancre atic Transplant: 0 to 3 months: 8.0-10.0, 3 to 12 months: 6.0-8.0, >12 months: 4.0-6.0 [facility] Method performed is a chemiluminescent microparticle immunoasssay on the [employer] i2000. The range is based on experience at [facility] and users should be aware that target concentrations vary widely depending on concomitant therapy, time post-transplant, and desired degree of immunosuppression. [facility] Tacrolimus, Trough 11.8 ng/mL Normal Bone Veronique ow Transplant: 5.0-15.0 Kidney/Pancre atic Transplant: 0 to 3 months: 8.0-10.0, 3 to 12 months: 6.0-8.0, >12 months: 4.0-6.0 [facility] Comment on above: Order Comment: Pleas e draw at specified interval PRIOR to dose. Do not hold dose to wait for level. Specimens batched twice per day, (M-F) and once per day weekendsMethod performed is a chemiluminescent microparticle immunoasssay on the [employer] i2000.The range is based on experience at [facility] and users should be aware that target concentrations vary widely depending on concomitant therapy, time post-transplant, and desired degree of immunosuppression. Performed By: #### T ACRO ####[facility] (DEFAULT)[address] [place] [address] Tacrolimus (Prograf)on 08-04 Tacrolimus (Bld) [Mass/Vol] 6.8 ng/mL Normal 5.0-20.0 [facility] Comment on above: Order Comment: Test( s) 943468-[id number] (FK506), Bloodwas developed and its performance characteristicsdetermined by [facility]. It has not been cleared or approvedby [...] 3380.1000, L501.5101, L501.5200, L500.4050, L501.2300, L501.4700, L100.0100 ####[facility] [id number] [place], [address] CALCIUMon 08-03-2024 Calcium [Mass/Vol] 8.5 mg/dL Low 8.6 - 10. 5 mg/dL [facility] Calcium [Mass/Vol] 8.5 mg/dL Low 8.6-10.5 [facility] Comment on above: Performed By: #### I PB, HFP, CHM7, MGO, [place] ####[facility] (DEFAULT)[address] [place] [address] CBC AND ELECTRONIC DIFFon Basophils (Bld) [#/Vol] 0.08 10*3/uL 0.00 - 0.09 K/uL [facility] Basophils/100 WBC (Bld) 2.3 % [facility] Differential cell count method Nom (Bld) Electronic Differential [facility] Eosinophils (Bld) [#/Vol] 0.05 10*3/uL 0.00 - 0.48 K/uL [facility] Eosinophils/100 WBC (Bld) 1.5 % [facility] Erythrocyte distribution width (RBC) [Ratio] 16.9 % High 10.9 - 14.3 % [facility] Hematocrit (Bld) [Volume fraction] 32.5 % Low 39.6 - 48.8 % [facility] Hemoglobin (Bld) [Mass/Vol] 10.2 g/dL Low 13.4 - 16.8 g/dL [facility] Immature granulocytes (Bld) [#/Vol] 0.04 10*3/uL NINF - 0.07 K/uL [facility] Immature granulocytes/100 WBC (Bld) 1.2 % [facility] Interpretation and review of laboratory results Abnormal [facility] Lymphocytes (Bld) [#/Vol] 0.93 10*3/uL 0.83 - 3.57 K/uL [facility] Lymphocytes/100 WBC (Bld) 27.3 % [facility] MCH (RBC) [Entitic mass] 30.5 pg 26.1 - 33.3 pg [facility] MCHC (RBC) [Mass/Vol] 31.4 g/dL Low 31.9 - 36.5 g/dL [facility] MCV (RBC) [Entitic vol] 97.3 fL High 79.0 - 94.5 fL [facility] Monocytes (Bld) [#/Vol] 0.36 10*3/uL 0.24 - 0.93 K/uL [facility] Monocytes/100 WBC (Bld) 10.6 % [facility] Neutrophils (Bld) [#/Vol] 1.95 10*3/uL 1.57 - 6.19 K/uL [facility] Nucleated RBC/100 WBC (Bld) [Ratio] 0 % NINF [facility] Platelet mean volume (Bld) [Entitic vol] 10.2 fL 8.7 - 12.3 fL [facility] Platelets (Bld) [#/Vol] 362 10*3/uL High 146 - 337 K/uL [facility] RBC (Bld) [#/Vol] 3.34 10*6/uL Low [facility] Segmented neutrophils/100 WBC (Bld) 57.1 % [facility] WBC (Bld) [#/Vol] 3.41 10*3/uL Low 3.73 - 10. 10 K/uL [facility] Basophils (Bld) [#/Vol] 0.08 10*3/uL Normal 0.00-0.09 [facility] Comment on above: Performed By: #### L AB980 ####[facility] (DEFAULT)[address] [place] [address] Basophils/100 WBC (Bld) 2.3 % Normal [facility] Comment on above: Performed By: #### L AB980 ####[facility] (DEFAULT)[address] [place] [address] DIFF STATUS Electronic Differential Normal [facility] Comment on above: Performed By: #### L AB980 ####[facility] (DEFAULT)[address] [place] [address] Eosinophils (Bld) [#/Vol] 0.05 10*3/uL Normal 0.00-0.48 [facility] Comment on above: Performed By: #### L AB980 ####[facility] (DEFAULT)[address] [place] [address] Eosinophils/100 WBC (Bld) 1.5 % Normal [facility] Comment on above: Performed By: #### L AB980 ####[facility] (DEFAULT)[address] [place] [address] Hematocrit (Bld) [Volume fraction] 32.5 % Low 39.6-48.8 [facility] Comment on above: Performed By: #### L AB980 ####[facility] (DEFAULT)[address] [place] [address] Hemoglobin (Bld) [Mass/Vol] 10.2 g/dL Low 13.4-16.8 [facility] Comment on above: Performed By: #### L AB980 ####[facility] (DEFAULT)[address] [place] [address] Immature Grans % 1.2 % Normal [facility] Comment on above: Performed By: #### L AB980 ####[facility] (DEFAULT)[address] [place] [address] Immature Grans Absolute 0.04 K/uL Normal <=0.07 [facility] Comment on above: Performed By: #### L AB980 ####[facility] (DEFAULT)[address] [place] [address] Lymphocytes (Bld) [#/Vol] 0.93 10*3/uL Normal 0.83-3.57 [facility] Comment on above: Performed By: #### L AB980 ####[facility] (DEFAULT)[address] [place] [address] Lymphocytes/100 WBC (Bld) 27.3 % Normal [facility] Comment on above: Performed By: #### L AB980 ####[facility] (DEFAULT)[address] [place] [address] MCV (RBC) [Entitic vol] 97.3 fL High 79.0-94.5 [facility] Comment on above: Performed By: #### L AB980 ####[facility] (DEFAULT)[address] [place] [address] Mean Cell Hgb 30.5 pg Normal 26.1-33.3 [facility] Comment on above: Performed By: #### L AB980 ####[facility] (DEFAULT)[address] [place] [address] Mean Cell Hgb Conc 31.4 g/dL Low 31.9-36.5 [facility] Comment on above: Performed By: #### L AB980 ####[facility] (DEFAULT)[address] [place] [address] Monocytes (Bld) [#/Vol] 0.36 10*3/uL Normal 0.24-0.93 [facility] Comment on above: Performed By: #### L AB980 ####[facility] (DEFAULT)[address] [place] [address] Monocytes/100 WBC (Bld) 10.6 % Normal [facility] Comment on above: Performed By: #### L AB980 ####[facility] (DEFAULT)[address] [place] [address] Nucleated RBC 0.0 /100 WBC Normal <=0.2 [facility] Comment on above: Performed By: #### L AB980 ####[facility] (DEFAULT)[address] [place] [address] Platelet mean volume (Bld) [Entitic vol] 10.2 fL Normal 8.7-12.3 [facility] Comment on above: Performed By: #### L AB980 ####[facility] (DEFAULT)[address] [place] [address] Platelets (Bld) [#/Vol] 362 10*3/uL High 146-337 [facility] Comment on above: Performed By: #### L AB980 ####[facility] (DEFAULT)[address] [place] [address] RBC (Bld) [#/Vol] 3.34 10*6/uL Low 4.38-5.83 [facility] Comment on above: Performed By: #### L AB980 ####[facility] (DEFAULT)[address] [place] [address] RBC Distribution 16.9 % High 10.9-14.3 [facility] Comment on above: Performed By: #### L AB980 ####[facility] (DEFAULT)[address] [place] [address] Segs + Bands Auto 57.1 % Normal [facility] Comment on above: Performed By: #### L AB980 ####[facility] (DEFAULT)[address] [place] [address] Segs + Bands,Absolute Auto 1.95 K/uL Normal 1.57-6.19 [facility] Comment on above: Performed By: #### L AB980 ####[facility] (DEFAULT)[address] [place] [address] WBC (Bld) [#/Vol] 3.41 10*3/uL Low 3.73-10.10 [facility] Comment on above: Performed By: #### L AB980 ####[facility] (DEFAULT)[address] [facility] [place] [address] CHEM 7 (LYTES,BUN,CREA,GLUC) on 08-03-2024 Anion gap [Moles/Vol] 12 mmol/L 7 - 17 mmol/L [facility] Chloride [Moles/Vol] 105 mmol/L 98 - 10 8 mmol/L [facility] CO2 [Moles/Vol] 24 mmol/L 21 - 31 mmol/L [facility] Creatinine [Mass/Vol] 0.74 mg/dL 0.70 - 1.30 mg/dL [facility] eGFR, CKD-EPI, Male - PINF [facility] Comment on above: Reported eGFR is bas ed on the CKD-EPI 2020 equation using creatinine, age, and sex. Glucose [Mass/Vol] 83 mg/dL 70 - 179 mg/dL [facility] Osmolality Calc [Osmolality] 290 [facility] Potassium [Moles/Vol] 4.3 mmol/L 3.5 - 5.0 mmol/L [facility] Sodium [Moles/Vol] 137 mmol/L 135 - 145 mmol/L [facility] Urea nitrogen [Mass/Vol] 21 mg/dL 7 - 25 mg/dL [facility] Urea nitrogen/Creatinine [Mass ratio] 28 mg/mg [facility] Anion gap [Moles/Vol] 12 mmol/L Normal 7-17 [facility] Comment on above: Performed By: #### I PB, HFP, CHM7, MGO, CA ####[facility] (DEFAULT)[address] [place] [address] Chloride [Moles/Vol] 105 mmol/L Normal 98-108 [facility] Comment on above: Performed By: #### I PB, HFP, CHM7, MGO, CA ####[facility] (DEFAULT)[address] [place] [address] CO2 [Moles/Vol] 24 mmol/L Normal 21-31 [facility] Comment on above: Performed By: #### I PB, HFP, CHM7, MGO, CA ####[facility] (DEFAULT)[address] [place] [address] Creatinine [Mass/Vol] 0.74 mg/dL Normal 0.70-1.30 [facility] Comment on above: Performed By: #### I PB, HFP, CHM7, MGO, CA ####[facility] (DEFAULT)[address] [place] [address] eGFR, CKD-EPI, Male > Normal >=60 [facility] Comment on above: Result Comment: Repo rted eGFR is based on the CKD-EPI 2020 equation using creatinine, age, and sex. Performed By: #### I PB, HFP, CHM7, MGO, CA ####[facility] (DEFAULT)[address] [place] [address] Glucose [Mass/Vol] 83 mg/dL Normal Nonfastin -179 mg/dL; Fastin-99 [facility] Comment on above: Performed By: #### I PB, HFP, CHM7, MGO, CA ####[facility] (DEFAULT)[address] [place] [address] Osmolality [Osmolality] 290 mosm/kg Normal 278-305 [facility] Comment on above: Performed By: #### I PB, HFP, CHM7, MGO, CA ####[facility] (DEFAULT)[address] [place] [address] Potassium [Moles/Vol] 4.3 mmol/L Normal 3.5-5.0 [facility] Comment on above: Performed By: #### I PB, HFP, CHM7, MGO, CA ####[facility] (DEFAULT)[address] [place] [address] Sodium [Moles/Vol] 137 mmol/L Normal 135-145 [facility] Comment on above: Performed By: #### I PB, HFP, CHM7, MGO, CA ####[facility] (DEFAULT)[address] [place] [address] Urea nitrogen [Mass/Vol] 21 mg/dL Normal 7-25 [facility] Comment on above: Performed By: #### I PB, HFP, CHM7, MGO, CA ####[facility] (DEFAULT)[address] [place] [address] Urea nitrogen/Creatinine [Mass ratio] 28 mg/mg Normal [facility] Comment on above: Performed By: #### I PB, HFP, CHM7, MGO, CA ####[facility] (DEFAULT)[address] [place] [address] CMV BY PCR, QUANTITATIVE, BL OODon 08-03-2024 CMV By PCR, IU/mL, Plasma <34.5 Normal <34.5 [facility] Comment on above: Order Comment: This test was performed using a real time PCR assay. The dynamic range for this assay is 34.5-10,000,000 IU/mL (1.54-7.00 Log IU/mL). Performed By: #### C MVPCR ####[facility] (DEFAULT)[address] [place] [address] CMV QUANTITATIVE BY PCR,(LOG IU/mL) < Normal <1.54 [facility] Comment on above: Order Comment: This test was performed using a real time PCR assay. The dynamic range for this assay is 34.5-10,000,000 IU/mL (1.54-7.00 Log IU/mL). Performed By: #### C MVPCR ####[facility] (DEFAULT)[address] [place] [address] EBV BY PCR, QUANTITATIVE,BLO ODon 08-03-2024 Ebv By Pcr, Quant, Blood <35 Normal <35 [facility] Comment on above: Order Comment: This test was performed using a real time PCR assay. The dynamic range for this assay is 35-100,000,000 IU/mL (1.54-8.00 Log IU/mL). Performed By: #### E BVPCR ####[facility] (DEFAULT)[address] [place] [address] EBV Viral Load By PCR,(Log) < Normal <1.54 [facility] Comment on above: Order Comment: This test was performed using a real time PCR assay. The dynamic range for this assay is 35-100,000,000 IU/mL (1.54-8.00 Log IU/mL). Performed By: #### E BVPCR ####[facility] (DEFAULT)[address] [place] [address] HEPATIC FUNCTION PANELon Albumin [Mass/Vol] 3.5 g/dL 3.5 - 5.0 g/dL [facility] ALP [Catalytic activity/Vol] 240 U/L High 32 - 126 U/L [facility] ALT [Catalytic activity/Vol] 44 U/L 10 - 52 U/L [facility] AST [Catalytic activity/Vol] 28 U/L 10 - 39 U/L [facility] Bilirubin [Mass/Vol] 0.3 mg/dL NINF - 1.5 mg/dL [facility] Bilirubin.direct [Mass/Vol] 0.1 mg/dL NINF - 0.3 mg/dL [facility] Protein [Mass/Vol] 6.1 g/dL Low 6.4 - 8.3 g/dL [facility] Albumin [Mass/Vol] 3.5 g/dL Normal 3.5-5.0 [facility] Comment on above: Performed By: #### I PB, HFP, CHM7, MGO, CA ####[facility] (DEFAULT)[address] [place] [address] ALP [Catalytic activity/Vol] 240 U/L High 32-126 [facility] Comment on above: Performed By: #### I PB, HFP, CHM7, MGO, CA ####[facility] (DEFAULT)[address] [place] [address] ALT [Catalytic activity/Vol] 44 U/L Normal 10-52 [facility] Comment on above: Performed By: #### I PB, HFP, CHM7, MGO, CA ####[facility] (DEFAULT)[address] [place] [address] AST [Catalytic activity/Vol] 28 U/L Normal 10-39 [facility] Comment on above: Performed By: #### I PB, HFP, CHM7, MGO, CA ####[facility] (DEFAULT)[address] [place] [address] Bilirubin [Mass/Vol] 0.3 mg/dL Normal <1.5 [facility] Comment on above: Performed By: #### I PB, HFP, CHM7, MGO, CA ####[facility] (DEFAULT)[address] [place] [address] Bilirubin.indirect [Mass/Vol] 0.1 mg/dL Normal <0.3 [facility] Comment on above: Performed By: #### I PB, HFP, CHM7, MGO, CA ####[facility] (DEFAULT)[address] [place] [address] Protein [Mass/Vol] 6.1 g/dL Low 6.4-8.3 [facility] Comment on above: Performed By: #### I PB, HFP, CHM7, MGO, CA ####[facility] (DEFAULT)[address] [place] [address] MAGNESIUMon 08-03-2024 Magnesium [Mass/Vol] 1.5 mg/dL Low 1.6 - 2 .6 mg/dL [facility] Magnesium [Mass/Vol] 1.5 mg/dL Low 1.6-2.6 [facility] Comment on above: Performed By: #### I PB, HFP, CHM7, MGO, CA ####[facility] (DEFAULT)[address] [place] [address] No Panel Informationon 08-03 Interpretation and review of laboratory results Abnormal [facility] PHOSPHATE, INORGANICon 08-03 Interpretation and review of laboratory results Normal [facility] Phosphate [Mass/Vol] 3.4 mg/dL 2.2 - 4 .6 mg/dL [facility] Phosphorous 3.4 mg/dL Normal 2.2-4.6 [facility] Comment on above: Performed By: #### I PB, HFP, CHM7, MGO, CA ####[facility] (DEFAULT)[address] [place] [id number] POUCHOSCOPYon 08-03-2024 Body surface area Derived from formula 1.53 m2 [facility] Gastroenterology Patient Name: Jc Dunaway Procedure Date: 08/03/2024 1:00 PM Date of : 1965 Admit Type: Inpatient Age: 59 Room: [place] [address] Gender: Male Note Status: Finalized Attending MD: Dipak Banerjee MD, [id number] Procedure: Pouchoscopy Indications: Hematochezia, Inflammatory bowel disease Providers: Dipak Banerjee MD (Doctor), Nilson Larsen MD (Fellow), Sasha Day RN (Nurse), Thad Triplett Hedge Fund Accountant (Hedge Fund Accountant) Patient Profile: This is a 59 year [...] previous diet. Procedure Code(s): --- Professional --- 99768, GC, Endoscopic evaluation of small intestinal pouch (eg, Kock pouch, ileal reservoir [S or J]); with biopsy, single or multiple Diagnosis Code(s): --- Professional - (more content not included)... LAB, [facility] Radiology Study observation (narrative) [facility] SURG PATH REQUESTon 08-04-[address] [facility] Comment on above: Result Comment: CMV immunohistochemical stains (A1 and B1) are negative. The original diagnoses remain unchanged.All controls show appropriate reactivity. All immunohistochemistry (IHC), in situ hybridization (MELA), and histochemical tests were developed by and are performed at the [facility] Clinical Laboratory, Histology and IHC Lab, [address] [place] [address]. All Immunofluorescent (IF) tests were developed by and are performed at the [facility] Clinical Laboratory, Renal Division, [address] [address]. All tests reported here, except for PD-L1, [...] EDT Performed By: #### S URGP ####[facility] (DEFAULT)[address] [place] [address] Case Report [facility] Comment on above: Result Comment: Surg ical Pathology Report Case: [id number] Provider: Dipak Banerjee MD Collected: 08/03/2024 01:12 PMOrdering [facility] Received: 08/03/2024 02:23 PMPathologist: MAGDY Lomaspecimens: A) - TISSUE, ileal polyp-forceps B) - TISSUE, random pouch bopsies-evaluate for pouchitis, r/o CMV Performed By: #### S URGP ####[facility] (DEFAULT)[address] [place] [address] Clinical History Evaluate for pouchit is. R/o CMV. Medical History: Ulcerative colitis. Primary sclerosing cholangitis. Colon cancer. Cirrhosis of liver not due to alcohol. [facility] Comment on above: Performed By: #### S URGP ####[facility] (DEFAULT)[address] [address] Gross Description [facility] Comment on above: Result Comment: The [...] greatest dimension. TE 1Lab Use Only: JobID [id number] for this case was: Martha Patel Performed By: #### S URGP ####[facility] (DEFAULT)[address] [place] [address] Microscopic Description A microscopic examination was performed. [facility] Comment on above: Performed By: #### S URGP ####[facility] (DEFAULT)[address] [place] [address] [address] [facility] Comment on above: Result Comment: A. S mall intestine, ileum, polyp, biopsy:Polypoid intestinal mucosa, no significant pathologic changeNegative for dysplasiaB. Small intestine, pouch, random, biopsy:Intestinal mucosa with focal minimal acute inflammationNegative for dysplasia at 1617 EDT Performed By: #### S URGP ####[facility] (DEFAULT)[address] [place] [address] Professional Interpretation Performed at: [facility] Comment on above: Result Comment: [facility] CLINICAL LABORATORYFor Immediate Release to [facility] [id number] [place] [id number] Performed By: #### S URGP ####[facility] (DEFAULT)[address] [place] [address] TACROLIMUS LEVEL, TROUGH (NE E DRUG LEVEL)on 08-03-2024 Tacrolimus (Bld) [Mass/Vol] 10.8 ng/mL Bone Marrow Transplant: 5.0-15.0 Kidney/Pancre atic Transplant: 0 to 3 months: 8.0-10.0, 3 to 12 months: 6.0-8.0, >12 months: 4.0-6.0 [facility] Method performed is a chemiluminescent microparticle immunoasssay on the 71lbs [employer] Tech i2000. The range is based on experience at [facility] and users should be aware that target concentrations vary widely depending on concomitant therapy, time post-transplant, and desired degree of immunosuppression. [facility] Tacrolimus, Trough 10.8 ng/mL Normal Bone Veornique ow Transplant: 5.0-15.0 Kidney/Pancre atic Transplant: 0 to 3 months: 8.0-10.0, 3 to 12 months: 6.0-8.0, >12 months: 4.0-6.0 [facility] Comment on above: Order Comment: Pleas e draw at specified interval PRIOR to dose. Do not hold dose to wait for level. Specimens batched twice per day, (M-F) and once per day weekendsMethod performed is a chemiluminescent microparticle immunoasssay on the Key[employer] Delivery Tech i2000.The range is based on experience at [facility] and users should be aware that target concentrations vary widely depending on concomitant therapy, time post-transplant, and desired degree of immunosuppression. Performed By: #### T ACRO ####[facility] (DEFAULT)[address] [place] [address] CALCIUMon 08-02-2024 Calcium [Mass/Vol] 8.7 mg/dL 8.6 - 10. 5 mg/dL [facility] Calcium [Mass/Vol] 8.7 mg/dL Normal 8.6-10.5 [facility] Comment on above: Performed By: #### I PB, CHM7, MGO, CA ####[facility] (DEFAULT)[address] [place] [address] NAEEM AURIS SCREEN BY PCRO rdered By: Leo Hernandez on 08-02-2024 Naeem auris Screen by PCR Detected Abnormal Not Detected [facility] Comment on above: A positive colonizat ion screen does not indicate active infection. If concerned for active infection, ID consult and clinical correlation recommended Interpretation and review of laboratory results Abnormal [facility] This test was perfor med using a real-time PCR assay. This test was developed, and its performance characteristics determined by [facility] at [facility]. It has not been cleared or approved by the FDA. The laboratory is regulated under CLIA as qualified to perform high-complexity testing. This test is used for clinical purposes. It should not be regarded as investigational or for research. [facility] CBC AND ELECTRONIC DIFFon Basophils (Bld) [#/Vol] 0.05 10*3/uL 0.00 - 0.09 K/uL [facility] Basophils/100 WBC (Bld) 1.6 % [facility] Differential cell count method Nom (Bld) Electronic Differential [facility] Eosinophils (Bld) [#/Vol] 0.07 10*3/uL 0.00 - 0.48 K/uL [facility] Eosinophils/100 WBC (Bld) 2.2 % [facility] Erythrocyte distribution width (RBC) [Ratio] 17.3 % High 10.9 - 14.3 % [facility] Hematocrit (Bld) [Volume fraction] 32.6 % Low 39.6 - 48.8 % [facility] Hemoglobin (Bld) [Mass/Vol] 10.4 g/dL Low 13.4 - 16.8 g/dL [facility] Immature granulocytes (Bld) [#/Vol] 0.07 10*3/uL NINF - 0.07 K/uL [facility] Immature granulocytes/100 WBC (Bld) 2.2 % [facility] Interpretation and review of laboratory results Abnormal [facility] Lymphocytes (Bld) [#/Vol] 0.89 10*3/uL 0.83 - 3.57 K/uL [facility] Lymphocytes/100 WBC (Bld) 28.1 % [facility] MCH (RBC) [Entitic mass] 31.8 pg 26.1 - 33.3 pg [facility] MCHC (RBC) [Mass/Vol] 31.9 g/dL 31.9 - 36.5 g/dL [facility] MCV (RBC) [Entitic vol] 99.7 fL High 79.0 - 94.5 fL [facility] Monocytes (Bld) [#/Vol] 0.42 10*3/uL 0.24 - 0.93 K/uL [facility] Monocytes/100 WBC (Bld) 13.2 % [facility] Neutrophils (Bld) [#/Vol] 1.67 10*3/uL 1.57 - 6.19 K/uL [facility] Nucleated RBC/100 WBC (Bld) [Ratio] 0 % NINF [facility] Platelet mean volume (Bld) [Entitic vol] 10.2 fL 8.7 - 12.3 fL [facility] Platelets (Bld) [#/Vol] 338 10*3/uL High 146 - 337 K/uL [facility] RBC (Bld) [#/Vol] 3.27 10*6/uL Low [facility] Segmented neutrophils/100 WBC (Bld) 52.7 % [facility] WBC (Bld) [#/Vol] 3.17 10*3/uL Low 3.73 - 10. 10 K/uL [facility] Basophils (Bld) [#/Vol] 0.05 10*3/uL Normal 0.00-0.09 [facility] Comment on above: Performed By: #### L AB980 ####[facility] (DEFAULT)[address] [place] [address] Basophils/100 WBC (Bld) 1.6 % Normal [facility] Comment on above: Performed By: #### L AB980 ####[facility] (DEFAULT)[address] [place] [address] DIFF STATUS Electronic Differential Normal [facility] Comment on above: Performed By: #### L AB980 ####[facility] (DEFAULT)[address] [place] [address] Eosinophils (Bld) [#/Vol] 0.07 10*3/uL Normal 0.00-0.48 [facility] Comment on above: Performed By: #### L AB980 ####[facility] (DEFAULT)[address] [place] [address] Eosinophils/100 WBC (Bld) 2.2 % Normal [facility] Comment on above: Performed By: #### L AB980 ####[facility] (DEFAULT)[address] [place] [address] Hematocrit (Bld) [Volume fraction] 32.6 % Low 39.6-48.8 [facility] Comment on above: Performed By: #### L AB980 ####[facility] (DEFAULT)[address] [place] [address], [place] [address] Hemoglobin (Bld) [Mass/Vol] 10.4 g/dL Low 13.4-16.8 [facility] Comment on above: Performed By: #### L AB980 ####[facility] (DEFAULT)[address] [place] [address] Immature Grans % 2.2 % Normal [facility] Comment on above: Performed By: #### L AB980 ####[facility] (DEFAULT)[address] [place] [address], [place] [address] Immature Grans Absolute 0.07 K/uL Normal <=0.07 [facility] Comment on above: Performed By: #### L AB980 ####[facility] (DEFAULT)[address] [place] [address] Lymphocytes (Bld) [#/Vol] 0.89 10*3/uL Normal 0.83-3.57 [facility] Comment on above: Performed By: #### L AB980 ####[facility] (DEFAULT)[address] [place] [address], [place] [address] Lymphocytes/100 WBC (Bld) 28.1 % Normal [facility] Comment on above: Performed By: #### L AB980 ####[facility] (DEFAULT)[address] [place] [address] MCV (RBC) [Entitic vol] 99.7 fL High 79.0-94.5 [facility] Comment on above: Performed By: #### L AB980 ####[facility] (DEFAULT)[address] [place] [address] Mean Cell Hgb 31.8 pg Normal 26.1-33.3 [facility] Comment on above: Performed By: #### L AB980 ####[facility] (DEFAULT)[address] [place] [address] Mean Cell Hgb Conc 31.9 g/dL Normal 31.9-36.5 [facility] Comment on above: Performed By: #### L AB980 ####[facility] (DEFAULT)[address] [place] [address] Monocytes (Bld) [#/Vol] 0.42 10*3/uL Normal 0.24-0.93 [facility] Comment on above: Performed By: #### L AB980 ####[facility] (DEFAULT)[address] [place] [address] Monocytes/100 WBC (Bld) 13.2 % Normal [facility] Comment on above: Performed By: #### L AB980 ####[facility] (DEFAULT)[address] [place] [address] Nucleated RBC 0.0 /100 WBC Normal <=0.2 [facility] Comment on above: Performed By: #### L AB980 ####[facility] (DEFAULT)[address] [place] [address] Platelet mean volume (Bld) [Entitic vol] 10.2 fL Normal 8.7-12.3 [facility] Comment on above: Performed By: #### L AB980 ####[facility] (DEFAULT)[address] [place] [address] Platelets (Bld) [#/Vol] 338 10*3/uL High 146-337 [facility] Comment on above: Performed By: #### L AB980 ####[facility] (DEFAULT)[address] [place] [address] RBC (Bld) [#/Vol] 3.27 10*6/uL Low 4.38-5.83 [facility] Comment on above: Performed By: #### L AB980 ####[facility] (DEFAULT)[address] [place] [address] RBC Distribution 17.3 % High 10.9-14.3 [facility] Comment on above: Performed By: #### L AB980 ####[facility] (DEFAULT)[address] [place] [address] Segs + Bands Auto 52.7 % Normal [facility] Comment on above: Performed By: #### L AB980 ####[facility] (DEFAULT)[address] [place] [address] Segs + Bands,Absolute Auto 1.67 K/uL Normal 1.57-6.19 [facility] Comment on above: Performed By: #### L AB980 ####[facility] (DEFAULT)[address] [place] [address], [place] [address] WBC (Bld) [#/Vol] 3.17 10*3/uL Low 3.73-10.10 [facility] Comment on above: Performed By: #### L AB980 ####[facility] (DEFAULT)[address] [place] [id number] CHEM 7 (LYTES,BUN,CREA,GLUC) on 08-02-2024 Anion gap [Moles/Vol] 15 mmol/L 7 - 17 mmol/L [facility] Chloride [Moles/Vol] 105 mmol/L 98 - 10 8 mmol/L [facility] CO2 [Moles/Vol] 24 mmol/L 21 - 31 mmol/L [facility] Creatinine [Mass/Vol] 0.71 mg/dL 0.70 - 1.30 mg/dL [facility] eGFR, CKD-EPI, Male - PINF [facility] Comment on above: Reported eGFR is bas ed on the CKD-EPI 2020 equation using creatinine, age, and sex. Glucose [Mass/Vol] 83 mg/dL 70 - 179 mg/dL [facility] Osmolality Calc [Osmolality] 298 [facility] Potassium [Moles/Vol] 4.3 mmol/L 3.5 - 5.0 mmol/L [facility] Sodium [Moles/Vol] 140 mmol/L 135 - 145 mmol/L [facility] Urea nitrogen [Mass/Vol] 28 mg/dL High 7 - 25 mg/dL [facility] Urea nitrogen/Creatinine [Mass ratio] 39 mg/mg [facility] Anion gap [Moles/Vol] 15 mmol/L Normal 7-17 [facility] Comment on above: Performed By: #### I PB, CHM7, MGO, CA ####[facility] (DEFAULT)[address] [place] [address] [place] [address] Chloride [Moles/Vol] 105 mmol/L Normal 98-108 [facility] Comment on above: Performed By: #### I PB, CHM7, MGO, CA ####[facility] (DEFAULT)[address] [place] [address] CO2 [Moles/Vol] 24 mmol/L Normal 21-31 [facility] Comment on above: Performed By: #### I PB, CHM7, MGO, CA ####[facility] (DEFAULT)[address] [place] [address] Creatinine [Mass/Vol] 0.71 mg/dL Normal 0.70-1.30 [facility] Comment on above: Performed By: #### I PB, CHM7, MGO, CA ####[facility] (DEFAULT)[address] [place] [address] eGFR, CKD-EPI, Male > Normal >=60 [facility] Comment on above: Result Comment: Repo rted eGFR is based on the CKD-EPI 2020 equation using creatinine, age, and sex. Performed By: #### I PB, CHM7, MGO, CA ####[facility] (DEFAULT)[address] [place] [address] Glucose [Mass/Vol] 83 mg/dL Normal Nonfastin -179 mg/dL; Fastin-99 [facility] Comment on above: Performed By: #### I PB, CHM7, MGO, CA ####[facility] (DEFAULT)[address] [place] [address] Osmolality [Osmolality] 298 mosm/kg Normal 278-305 [facility] Comment on above: Performed By: #### I PB, CHM7, MGO, CA ####[facility] (DEFAULT)[address] [place] [address] Potassium [Moles/Vol] 4.3 mmol/L Normal 3.5-5.0 [facility] Comment on above: Performed By: #### I PB, CHM7, MGO, CA ####[facility] (DEFAULT)[address] [place] [address] Sodium [Moles/Vol] 140 mmol/L Normal 135-145 [facility] Comment on above: Performed By: #### I PB, CHM7, MGO, CA ####[facility] (DEFAULT)[address] [place] [address] Urea nitrogen [Mass/Vol] 28 mg/dL High 7-25 [facility] Comment on above: Performed By: #### I PB, CHM7, MGO, CA ####[facility] (DEFAULT)[address] [place] [address] Urea nitrogen/Creatinine [Mass ratio] 39 mg/mg Normal [facility] Comment on above: Performed By: #### I PB, CHM7, MGO, CA ####[facility] (DEFAULT)[address] [place] [address] CT ABDOMEN/PELVIS WITHOUT CO NTRASTon 08-02-2024 CT ABDOMEN/PELVIS WITHOUT CONTRAST Normal [facility] CT Abdomen and Pelvis WO woody [...] left hemipelvis measuring up to 2.6 cm. [facility] Radiology Study observation (narrative) [facility] CT Abdomen and Pelvis WO con trastOrdered By: Uriel John on 08-02-2024 [facility] Work Phone: EXTRA MICROon 08-02-2024 [facility] Gastrointestinal pathogens i dentified JACKY+probe Nom (Stl)Ordered By: Abeba Daniel on 08-02-2024 Campylobacter sp DNA JACKY+probe Nom (Unsp spec) Negative Negative [facility] Interpretation and review of laboratory results Normal [facility] Salmonella sp DNA JACKY+probe Ql (Unsp spec) Negative Negative [facility] Shiga toxin stx gene JACKY+probe Nom (Unsp spec) Negative Negative [facility] Shigella sp DNA JACKY+probe Ql (Unsp spec) Negative Negative [facility] This test was perfor med using a [...] be used as a test of cure. [facility] IMMUNOCOMPROMISED RESPIRATOR Y PANELon 08-02-2024 Adenovirus - Pcr Not detected Normal Not Detected [facility] Comment on above: Order Comment: Viral [...] acid assay. Performed By: #### I CRESP ####[facility] (DEFAULT)[address] [place] [address] Bordetella Parapertussis Not detected Normal Not Detected [facility] Comment on above: Order Comment: Viral [...] acid assay. Performed By: #### I CRESP ####[facility] (DEFAULT)[address] [place] [address] Bordetella Pertussis Not detected Normal Not Detected [facility] Comment on above: Order Comment: Viral [...] acid assay. Performed By: #### I CRESP ####[facility] (DEFAULT)[address] [place] [address], [place] [address] Chlamydia Pneumoniae Not detected Normal Not Detected [facility] Comment on above: Order Comment: Viral [...] assay. Performed By: #### I CRESP ####[facility] (DEFAULT)[address] [place] [address], [place] [address] Coronavirus 229E Not detected Normal Not Detected [facility] Comment on above: Order Comment: Viral [...] assay. Performed By: #### I CRESP ####[facility] (DEFAULT)[address] [place] [address], [place] [address] Coronavirus Hku1 Not detected Normal Not Detected [facility] Comment on above: Order Comment: Viral [...] assay. Performed By: #### I CRESP ####[facility] (DEFAULT)[address] [place] [address] Coronavirus Nl63 Not detected Normal Not Detected [facility] Comment on above: Order Comment: Viral [...] acid assay. Performed By: #### I CRESP ####[facility] (DEFAULT)[address] [address] Coronavirus Oc43 Not detected Normal Not Detected [facility] Comment on above: Order Comment: Viral [...] acid assay. Performed By: #### I CRESP ####[facility] (DEFAULT)[address] [address] Influenza A - Pcr Not detected Normal Not Detected [facility] Comment on above: Order Comment: Viral [...] acid assay. Performed By: #### I CRESP ####[facility] (DEFAULT)[address] [address] Influenza B - Pcr Not detected Normal Not Detected [facility] Comment on above: Order Comment: Viral [...] acid assay. Performed By: #### I CRESP ####[facility] (DEFAULT)[address] [address] Metapneumovirus - Pcr Not detected Normal Not Detected [facility] Comment on above: Order Comment: Viral [...] acid assay. Performed By: #### I CRESP ####[facility] (DEFAULT)[address] [address] Mycoplasma Pneumoniae Not detected Normal Not Detected [facility] Comment on above: Order Comment: Viral [...] assay. Performed By: #### I CRESP ####[facility] (DEFAULT)[address] [address] Parainfluenza 1 - Pcr Not detected Normal Not Detected [facility] Comment on above: Order Comment: Viral [...] assay. Performed By: #### I CRESP ####[facility] (DEFAULT)[address] [place] [address] Parainfluenza 2 - Pcr Not detected Normal Not Detected [facility] Comment on above: Order Comment: Viral [...] assay. Performed By: #### I CRESP ####[facility] (DEFAULT)[address] [address] Parainfluenza 3 - Pcr Not detected Normal Not Detected [facility] Comment on above: Order Comment: Viral [...] assay. Performed By: #### I CRESP ####[facility] (DEFAULT)[address] [place] [address], [place] [address] Parainfluenza 4 - Pcr Not detected Normal Not Detected [facility] Comment on above: Order Comment: Viral [...] assay. Performed By: #### I CRESP ####[facility] (DEFAULT)[address] [place] [address] Rhinovirus/Enteroviru s - PCR Not detected Normal Not Detected [facility] Comment on above: Order Comment: Viral [...] acid assay. Performed By: #### I CRESP ####[facility] (DEFAULT)[address] [address] Rsv - Pcr Not detected Normal Not Detected [facility] Comment on above: Order Comment: Viral [...] assay. Performed By: #### I CRESP ####[facility] (DEFAULT)[address] [address] SARS-CoV-2 (COVID-19) RNA JACKY+probe Ql (Unsp spec) Not detected Normal NOT DETECTED [facility] Comment on above: Order Comment: Viral [...] acid assay. Performed By: #### I CRESP ####[facility] (DEFAULT)[address] [address] MAGNESIUMon 06-03-2025 Magnesium [Mass/Vol] 1.5 mg/dL Low 1.6 - 2 .6 mg/dL [facility] Magnesium [Mass/Vol] 1.5 mg/dL Low 1.6-2.6 [facility] Comment on above: Performed By: #### I PB, CHM7, MGO, CA ####[facility] (DEFAULT)[address] [place] [address], [place] [address] MOLECULAR ENTERIC PANEL, [facility] 08-02-2024 Campylobacter Spp By Pcr Negative Normal Negative [facility] Comment on above: Order Comment: Colle [...] of cure. Performed By: #### S TLB ####[facility] (DEFAULT)[address] [place] [address] Salmonella Spp By Pcr Negative Normal Negative [facility] Comment on above: Order Comment: Colle [...] of cure. Performed By: #### S TLB ####[facility] (DEFAULT)[address] [place] [address] Shiga Toxin By Pcr Negative Normal Negative [facility] Comment on above: Order Comment: Colle [...] of cure. Performed By: #### S TLB ####[facility] (DEFAULT)[address] [place] [address] Shigella Spp./Enteroinvasive E.Coli By PCR Negative Normal Negative [facility] Comment on above: Order Comment: Colle [...] of cure. Performed By: #### S TLB ####[facility] (DEFAULT)[address] [address] No Panel Informationon 08-02 Interpretation and review of laboratory results Abnormal [facility] Interpretation and review of laboratory results Normal [facility] PHOSPHATE, INORGANICon 08-02 Phosphate [Mass/Vol] 3.8 mg/dL 2.2 - 4 .6 mg/dL [facility] Phosphorous 3.8 mg/dL Normal 2.2-4.6 [facility] Comment on above: Performed By: #### I PB, CHM7, MGO, CA ####[facility] (DEFAULT)[address] [place] [address] Respiratory virus DNA+RNA NA A+probe Nom (Unsp spec)Ordered By: Neto Daniel on 08-02-2024 Adenovirus DNA JACKY+probe Nom (Unsp spec) Not detected Not Detected [facility] B. parapertussis DNA JACKY+probe Ql (Unsp spec) Not detected Not Detected [facility] B. pertussis DNA JACKY+probe Ql (Unsp spec) Not detected Not Detected [facility] C. pneumoniae DNA JACKY+probe Ql (Unsp spec) Not detected Not Detected [facility] FLUAV RNA JACKY+probe Ql (Unsp spec) Not detected Not Detected [facility] FLUBV RNA JACKY+probe Ql (Unsp spec) Not detected Not [facility] HCoV 229E RNA JACKY+non-probe Ql (Nph) Not detected Not Detected [facility] HCoV HKU1 RNA JACKY+non-probe Ql (Nph) Not detected Not Detected [facility] HCoV NL63 RNA JACKY+non-probe Ql (Nph) Not detected Not Detected [facility] HCoV OC43 RNA JACKY+non-probe Ql (Nph) Not detected Not Detected [facility] hMPV A RNA JACKY+probe Ql (Unsp spec) Not detected Not Detected [facility] Interpretation and review of laboratory results Normal [facility] M. pneumoniae DNA JACKY+probe Ql (Unsp spec) Not detected Not Detected [facility] Parainfluenza virus 1 RNA JACKY+probe Ql (Unsp spec) Not detected Not Detected [facility] Parainfluenza virus 2 RNA JACKY+probe Ql (Unsp spec) Not detected Not Detected [facility] Parainfluenza virus 3 RNA JACKY+probe Ql (Unsp spec) Not detected Not Detected [facility] Parainfluenza virus 4 RNA JACKY+probe Ql (Unsp spec) Not detected Not Detected [facility] Rhinovirus+Enteroviru s RNA JACKY+probe Ql (Unsp spec) Not detected Not Detected [facility] RSV RNA JACKY+probe Ql (Unsp spec) Not detected Not Detected [facility] SARS-CoV-2 (COVID-19) RNA JACKY+probe Ql (Unsp spec) Not detected NOT DETECTED [facility] Results should be us ed in conjunction with other clinical and laboratory findings. This result does not rule out co-infections with pathogens that are not screened for by the Respiratory Panel(RP). This RP assay was performed using a Film Array multiplex nucleic acid assay. [facility] TACROLIMUS LEVEL, TROUGH (NE E DRUG LEVEL)on 08-02-2024 Tacrolimus (Bld) [Mass/Vol] 10.3 ng/mL Bone Marrow Transplant: 5.0-15.0 Kidney/Pancre atic Transplant: 0 to 3 months: 8.0-10.0, 3 to 12 months: 6.0-8.0, >12 months: 4.0-6.0 [facility] Method performed is a chemiluminescent microparticle immunoasssay on the [employer] i2000. The range is based on experience at [facility] and users should be aware that target concentrations vary widely depending on concomitant therapy, time post-transplant, and desired degree of immunosuppression. [facility] Tacrolimus, Trough 10.3 ng/mL Normal Bone Veronique ow Transplant: 5.0-15.0 Kidney/Pancre atic Transplant: 0 to 3 months: 8.0-10.0, 3 to 12 months: 6.0-8.0, >12 months: 4.0-6.0 [facility] Comment on above: Order Comment: Pleas e draw at specified interval PRIOR to dose. Do not hold dose to wait for level. Specimens batched twice per day, (M-F) and once per day weekendsMethod performed is a chemiluminescent microparticle immunoasssay on the [employer] i2000.The range is based on experience at [facility] and users should be aware that target concentrations vary widely depending on concomitant therapy, time post-transplant, and desired degree of immunosuppression. Performed By: #### T ACRO ####[facility] (DEFAULT)[address] [place] [address] BLOOD CULTUREon 08-01-2024 Bacteria identified Cx Nom (Unsp spec) NO GROWTH DAY 5 OF 5 Normal [facility] Comment on above: Order Comment: 2 Bot [...] culture bottle. Performed By: #### B LDCULT ####[facility] (DEFAULT)[address] [place] [address] Order Comment: 2 Bot tles (1 Set - consists of 1 Aerobic bottle and 1 Anaerobic bottle) -1st Peripheral DrawFor vacutainer method draw: Fill aerobic bottle first, then anaerobic Bilirubin, Directon 08-02-19 25 Bilirubin.direct [Mass/Vol] 0.15 mg/dL Normal 0.00-0.30 [facility] Comment on above: Performed By: #### L 3380.1000, L501.5101, L501.5200, L500.4050, L501.2300, L501.4700, L100.0100 ####[facility] [id number] [place], [address] Blood basophils/100 leukocyt eson 08-01-2024 Basophils/100 WBC (Bld) 1 % 0-1 [facility] Blood lymphocytes/100 leukoc yteson 08-01-2024 Lymphocytes/100 WBC (Bld) 21 % 19-41 [facility] Blood metamyelocytes/100 susy kocyteson 08-01-2024 Metamyelocytes/100 WBC (Bld) 2 % High 0-1 [facility] Blood monocytes/100 leukocyt eson 08-01-2024 Monocytes/100 WBC (Bld) 8 % 0-10 [facility] Blood segmented neutrophils/ 100 leukocyteson 08-01-2024 Segmented neutrophils/100 WBC (Bld) 66 % 47-70 [facility] CALCIUMon 08-01-2024 Calcium [Mass/Vol] 8.9 mg/dL 8.6 - 10. 5 mg/dL [facility] Calcium [Mass/Vol] 8.9 mg/dL Normal 8.6-10.5 [facility] Comment on above: Performed By: #### I PB, HFP, CHM7, MGO, CA ####[facility] (DEFAULT)[address] [place] [address] NAEEM AURIS SCREEN BY PCRo n 08-01-2024 Naeem auris Screen by PCR Detected Abnormal Not Detected [facility] Comment on above: Order Comment: This test was performed using a real-time PCR assay. This test was developed, and its performance characteristics determined by [facility] at [facility]. It has not been cleared or [...] clinical correlation recommended Performed By: #### L [id number], NAEEM AURIS SCREEN BY PCR ####[facility] (DEFAULT)[address] [place] [address] CBC AND ELECTRONIC DIFFon Erythrocyte distribution width (RBC) [Ratio] 17.2 % High 10.9 - 14.3 % [facility] Hematocrit (Bld) [Volume fraction] 35.8 % Low 39.6 - 48.8 % [facility] Hemoglobin (Bld) [Mass/Vol] 11.2 g/dL Low 13.4 - 16.8 g/dL [facility] MCH (RBC) [Entitic mass] 30.8 pg 26.1 - 33.3 pg [facility] MCHC (RBC) [Mass/Vol] 31.3 g/dL Low 31.9 - 36.5 g/dL [facility] MCV (RBC) [Entitic vol] 98.4 fL High 79.0 - 94.5 fL [facility] Platelet mean volume (Bld) [Entitic vol] 10.4 fL 8.7 - 12.3 fL [facility] Platelets (Bld) [#/Vol] 350 10*3/uL High 146 - 337 K/uL [facility] RBC (Bld) [#/Vol] 3.64 10*6/uL Low [facility] WBC (Bld) [#/Vol] 3.32 10*3/uL Low 3.73 - 10. 10 K/uL [facility] Hematocrit (Bld) [Volume fraction] 35.8 % Low 39.6-48.8 [facility] Comment on above: Performed By: #### L [id number] ####[facility] (DEFAULT)[address] [place] [address], [place] [address] Hemoglobin (Bld) [Mass/Vol] 11.2 g/dL Low 13.4-16.8 [facility] Comment on above: Performed By: #### L [id number] ####[facility] (DEFAULT)[address] [place] [address], [place] [address] MCV (RBC) [Entitic vol] 98.4 fL High 79.0-94.5 [facility] Comment on above: Performed By: #### L [id number] ####[facility] (DEFAULT)[address] [place] [address] Mean Cell Hgb 30.8 pg Normal 26.1-33.3 [facility] Comment on above: Performed By: #### L AB980 ####[facility] (DEFAULT)[address] [place] [address] Mean Cell Hgb Conc 31.3 g/dL Low 31.9-36.5 [facility] Comment on above: Performed By: #### L [id number] ####[facility] (DEFAULT)[address] [place] [address] Platelet mean volume (Bld) [Entitic vol] 10.4 fL Normal 8.7-12.3 [facility] Comment on above: Performed By: #### L [id number] ####[facility] (DEFAULT)[address] [place] [address] Platelets (Bld) [#/Vol] 350 10*3/uL High 146-337 [facility] Comment on above: Performed By: #### L [id number] ####[facility] (DEFAULT)[address] [place] [address] RBC (Bld) [#/Vol] 3.64 10*6/uL Low 4.38-5.83 [facility] Comment on above: Performed By: #### L AB980 ####[facility] (DEFAULT)[address] [place] [address] RBC Distribution 17.2 % High 10.9-14.3 [facility] Comment on above: Performed By: #### L [id number] ####[facility] (DEFAULT)[address] [place] [address] WBC (Bld) [#/Vol] 3.32 10*3/uL Low 3.73-10.10 [facility] Comment on above: Performed By: #### L [id number] ####[facility] (DEFAULT)[address] [place] [address] CHEM 7 (LYTES,BUN,CREA,GLUC) on 08-01-2024 Anion gap [Moles/Vol] 13 mmol/L 7 - 17 mmol/L [facility] Chloride [Moles/Vol] 103 mmol/L 98 - 10 8 mmol/L [facility] CO2 [Moles/Vol] 26 mmol/L 21 - 31 mmol/L [facility] Creatinine [Mass/Vol] 0.87 mg/dL 0.70 - 1.30 mg/dL [facility] eGFR, CKD-EPI, Male - PINF [facility] Comment on above: Reported eGFR is bas ed on the CKD-EPI 2020 equation using creatinine, age, and sex. Glucose [Mass/Vol] 92 mg/dL 70 - 179 mg/dL [facility] Osmolality Calc [Osmolality] 294 [facility] Potassium [Moles/Vol] 4.3 mmol/L 3.5 - 5.0 mmol/L [facility] Sodium [Moles/Vol] 138 mmol/L 135 - 145 mmol/L [facility] Urea nitrogen [Mass/Vol] 26 mg/dL High 7 - 25 mg/dL [facility] Urea nitrogen/Creatinine [Mass ratio] 30 mg/mg [facility] Anion gap [Moles/Vol] 13 mmol/L Normal 7-17 [facility] Comment on above: Performed By: #### I PB, HFP, CHM7, MGO, CA ####[facility] (DEFAULT)[address] [place] [address] Chloride [Moles/Vol] 103 mmol/L Normal 98-108 [facility] Comment on above: Performed By: #### I PB, HFP, CHM7, MGO, CA ####[facility] (DEFAULT)[address] [place] [address] CO2 [Moles/Vol] 26 mmol/L Normal 21-31 [facility] Comment on above: Performed By: #### I PB, HFP, CHM7, MGO, CA ####[facility] (DEFAULT)[address] [place] [address] Creatinine [Mass/Vol] 0.87 mg/dL Normal 0.70-1.30 [facility] Comment on above: Performed By: #### I PB, HFP, CHM7, MGO, CA ####[facility] (DEFAULT)[address] [place] [address] eGFR, CKD-EPI, Male > Normal >=60 [facility] Comment on above: Result Comment: Repo rted eGFR is based on the CKD-EPI 2020 equation using creatinine, age, and sex. Performed By: #### I PB, HFP, CHM7, MGO, CA ####[facility] (DEFAULT)[address] [place] [address] Glucose [Mass/Vol] 92 mg/dL Normal Nonfastin -179 mg/dL; Fastin-99 [facility] Comment on above: Performed By: #### I PB, HFP, CHM7, MGO, CA ####[facility] (DEFAULT)[address] [place] [address] Osmolality [Osmolality] 294 mosm/kg Normal 278-305 [facility] Comment on above: Performed By: #### I PB, HFP, CHM7, MGO, CA ####[facility] (DEFAULT)[address] [place] [address] Potassium [Moles/Vol] 4.3 mmol/L Normal 3.5-5.0 [facility] Comment on above: Performed By: #### I PB, HFP, CHM7, MGO, CA ####[facility] (DEFAULT)[address] [place] [address] Sodium [Moles/Vol] 138 mmol/L Normal 135-145 [facility] Comment on above: Performed By: #### I PB, HFP, CHM7, MGO, CA ####[facility] (DEFAULT)[address] [place] [address] Urea nitrogen [Mass/Vol] 26 mg/dL High 7-25 [facility] Comment on above: Performed By: #### I PB, HFP, CHM7, MGO, CA ####[facility] (DEFAULT)[address] [place] [address] Urea nitrogen/Creatinine [Mass ratio] 30 mg/mg Normal [facility] Comment on above: Performed By: #### I PB, HFP, CHM7, MGO, CA ####[facility] (DEFAULT)[address] [place] [address] Comprehensive Metabolic Prof ilon 08-01-2024 Albumin [Mass/Vol] 4.0 g/dL Normal 3.4-4.8 [facility] Comment on above: Performed By: #### L 3380.1000, L501.5101, L501.5200, L500.4050, L501.2300, L501.4700, L100.0100 ####[facility] [id number] [place], [address] Albumin/Globulin [Mass ratio] 1.4 {ratio} Normal 0.9-2.4 [facility] Comment on above: Performed By: #### L 3380.1000, L501.5101, L501.5200, L500.4050, L501.2300, L501.4700, L100.0100 ####[facility] [id number] [place], [address] ALK PHOS 276 U/L High 40-129 [facility] Comment on above: Performed By: #### L 3380.1000, L501.5101, L501.5200, L500.4050, L501.2300, L501.4700, L100.0100 ####[facility] [address] [place], [address] ALT [Catalytic activity/Vol] 76 U/L High <=46 [facility] Comment on above: Performed By: #### L 3380.1000, L501.5101, L501.5200, L500.4050, L501.2300, L501.4700, L100.0100 ####[facility] [address] [place], [address] AST [Catalytic activity/Vol] 45 U/L High <=37 [facility] Comment on above: Performed By: #### L 3380.1000, L501.5101, L501.5200, L500.4050, L501.2300, L501.4700, L100.0100 ####[facility] [address] [place], [address] Bilirubin [Mass/Vol] 0.24 mg/dL Normal 0.00-1.30 [facility] Comment on above: Performed By: #### L 3380.1000, L501.5101, L501.5200, L500.4050, L501.2300, L501.4700, L100.0100 ####[facility] [address] [place], [address] BUN/CRE 24.7 RATIO High 10-20 [facility] Comment on above: Performed By: #### L 3380.1000, L501.5101, L501.5200, L500.4050, L501.2300, L501.4700, L100.0100 ####[facility] [address] [place], [address] Calcium [Mass/Vol] 9.2 mg/dL Normal 7.6-11.0 [facility] Comment on above: Performed By: #### L 3380.1000, L501.5101, L501.5200, L500.4050, L501.2300, L501.4700, L100.0100 ####[facility] [address] [place], [address] Chloride [Moles/Vol] 102 mmol/L Normal 98-108 [facility] Comment on above: Performed By: #### L 3380.1000, L501.5101, L501.5200, L500.4050, L501.2300, L501.4700, L100.0100 ####[facility] [address] [place], [address] CO2 [Moles/Vol] 24.6 mmol/L Normal 21.0-32.0 [facility] Comment on above: Performed By: #### L 3380.1000, L501.5101, L501.5200, L500.4050, L501.2300, L501.4700, L100.0100 ####[facility] [address] [place], [address] Creatinine [Mass/Vol] 0.87 mg/dL Normal 0.70-1.20 [facility] Comment on above: Performed By: #### L 3380.1000, L501.5101, L501.5200, L500.4050, L501.2300, L501.4700, L100.0100 ####[facility] [address] [place], [address] GAP 11 Normal 5-15 [facility] Comment on above: Performed By: #### L 3380.1000, L501.5101, L501.5200, L500.4050, L501.2300, L501.4700, L100.0100 ####[facility] [address] [place], [address] GFR/1.73 sq M.predicted among non-blacks MDRD (S/P/Bld) [Vol rate/Area] 99 mL/min/{1.73_m2} Normal >60 [facility] Comment on above: Result Comment: mL/m in/1.73m2 CKD-EPI Creatinine Equation (2020) Performed By: #### L 3380.1000, L501.5101, L501.5200, L500.4050, L501.2300, L501.4700, L100.0100 ####[facility] [address] [place], [address] Globulin (S) [Mass/Vol] 2.8 g/dL Normal 2.2-4.2 [facility] Comment on above: Performed By: #### L 3380.1000, L501.5101, L501.5200, L500.4050, L501.2300, L501.4700, L100.0100 ####[facility] [address] [place], [address] Glucose [Mass/Vol] 97 mg/dL Normal 70-99 [facility] Comment on above: Performed By: #### L 3380.1000, L501.5101, L501.5200, L500.4050, L501.2300, L501.4700, L100.0100 ####[facility] [address] [place], [address] Potassium [Moles/Vol] 5.4 mmol/L High 3.3-5.1 [facility] Comment on above: Performed By: #### L 3380.1000, L501.5101, L501.5200, L500.4050, L501.2300, L501.4700, L100.0100 ####[facility] [address] [place], [address] Sodium [Moles/Vol] 138 mmol/L Normal 133-145 [facility] Comment on above: Performed By: #### L 3380.1000, L501.5101, L501.5200, L500.4050, L501.2300, L501.4700, L100.0100 ####[facility] [address] [place], [address] T PROT 6.7 g/dL Normal 5.9-8.4 [facility] Comment on above: Performed By: #### L 3380.1000, L501.5101, L501.5200, L500.4050, L501.2300, L501.4700, L100.0100 ####[facility] [address] [place], [address] Urea nitrogen [Mass/Vol] 21 mg/dL High 4-19 [facility] Comment on above: Performed By: #### L 3380.1000, L501.5101, L501.5200, L500.4050, L501.2300, L501.4700, L100.0100 ####[facility] [address] [place], [address] Erythrocyte morphology asses smenton 08-01-2024 RBC morphology finding Nom (Bld) NORM C+C NORMAL NORM C&C [facility] FUNGAL ID/MICon 08-01-2024 Bacteria identified Cx Nom (Unsp spec) Normal [facility] Comment on above: Result Comment: Grow [id number] AURISCANDIDA AURISCandida aurisIdentified by PCR Performed By: #### L [id number], NAEEM AURIS SCREEN BY PCR ####[facility] (DEFAULT)[address] [place] [address] HEPATIC FUNCTION PANELon Albumin [Mass/Vol] 4 g/dL 3.5 - 5.0 g/dL [facility] ALP [Catalytic activity/Vol] 229 U/L High 32 - 126 U/L [facility] ALT [Catalytic activity/Vol] 61 U/L High 10 - 52 U/L [facility] AST [Catalytic activity/Vol] 39 U/L 10 - 39 U/L [facility] Bilirubin [Mass/Vol] 0.4 mg/dL NINF - 1.5 mg/dL [facility] Bilirubin.direct [Mass/Vol] 0.1 mg/dL NINF - 0.3 mg/dL [facility] Protein [Mass/Vol] 6.9 g/dL 6.4 - 8.3 g/dL [facility] Albumin [Mass/Vol] 4.0 g/dL Normal 3.5-5.0 [facility] Comment on above: Performed By: #### I PB, HFP, CHM7, MGO, CA ####[facility] (DEFAULT)[address] [place] [address] ALP [Catalytic activity/Vol] 229 U/L High 32-126 [facility] Comment on above: Performed By: #### I PB, HFP, CHM7, MGO, CA ####[facility] (DEFAULT)[address] [place] [address] ALT [Catalytic activity/Vol] 61 U/L High 10-52 [facility] Comment on above: Performed By: #### I PB, HFP, CHM7, MGO, CA ####[facility] (DEFAULT)[address] [place] [address] AST [Catalytic activity/Vol] 39 U/L Normal 10-39 [facility] Comment on above: Performed By: #### I PB, HFP, CHM7, MGO, CA ####[facility] (DEFAULT)[address] [place] [address] Bilirubin [Mass/Vol] 0.4 mg/dL Normal <1.5 [facility] Comment on above: Performed By: #### I PB, HFP, CHM7, MGO, CA ####[facility] (DEFAULT)[address] [place] [address] Bilirubin.indirect [Mass/Vol] 0.1 mg/dL Normal <0.3 [facility] Comment on above: Performed By: #### I PB, HFP, CHM7, MGO, CA ####[facility] (DEFAULT)[address] [place] [address] Protein [Mass/Vol] 6.9 g/dL Normal 6.4-8.3 [facility] Comment on above: Performed By: #### I PB, HFP, CHM7, MGO, CA ####[facility] (DEFAULT)[address] [place] [address] L501.5101on 08-01-2024 GGTP 134 IU/L Abnormal 0-65 [facility] Comment on above: Order Comment: Test( s) 088708-Fptcqimowx (FK506), Bloodwas developed and its performance characteristicsdetermined by [employer]. It has not been cleared or approvedby the Food and Drug Administration. Result Comment: Perf ormed at: - [address] [id number] Director: Sergio Machado MD, Phone: [phone] at: - [facility] [id number] Director: Red Graham PhD, Phone: [phone] Performed By: #### L 993.6895, L3380.1000, L501.5200, L500.4050, L501.5101, L100.0100, L501.2300 ####[facility] [address] [place], [address] MAGNESIUMon 08-01-2024 Magnesium [Mass/Vol] 1.6 mg/dL 1.6 - 2 .6 mg/dL [facility] Magnesium [Mass/Vol] 1.6 mg/dL Normal 1.6-2.6 [facility] Comment on above: Performed By: #### I PB, HFP, CHM7, MGO, CA ####[facility] (DEFAULT)[address] [place] [address] MANUAL DIFFon 08-01-2024 Band form neutrophils/100 WBC (Bld) 0 % [facility] Basophils (Bld) [#/Vol] 0 10*3/uL 0.00 - 0.09 K/uL [facility] Basophils/100 WBC (Bld) 0 % [facility] Differential cell count method Nom (Bld) Manual Differential [facility] Eosinophils (Bld) [#/Vol] 0.09 10*3/uL [facility] Eosinophils/100 WBC (Bld) 2.6 % [facility] Lymphocytes (Bld) [#/Vol] 0.91 10*3/uL 0.83 - 3.57 K/uL [facility] Lymphocytes/100 WBC (Bld) 27.4 % [facility] Monocytes (Bld) [#/Vol] 0.09 10*3/uL Low 0.24 - 0.93 K/uL [facility] Monocytes/100 WBC (Bld) 2.6 % [facility] Neutrophils (Bld) [#/Vol] 2.24 10*3/uL 1.57 - 6.19 K/uL [facility] Platelets Estimate (Bld) [#/Vol] Automated platelet count confirmed by manual slide review [facility] RBC morphology finding Nom (Bld) RBC INDICES CONFIRMED WITH MANUAL SLIDE REVIEW [facility] Segmented neutrophils/100 WBC (Bld) 67.4 % [facility] Magnesiumon 08-01-2024 Magnesium [Mass/Vol] 1.6 mg/dL Normal 1.5-2.2 [facility] Comment on above: Performed By: #### L 3380.1000, L501.5101, L501.5200, L500.4050, L501.2300, L501.4700, L100.0100 ####[facility] [address] [place], [address] Myelocyte %on 08-01-2024 Myelocytes/100 WBC (Bld) 2 % High 0-0 [facility] No Panel Informationon 08-01 Interpretation and review of laboratory results Abnormal [facility] Interpretation and review of laboratory results Abnormal [facility] Interpretation and review of laboratory results Normal [facility] PHOSPHATE, INORGANICon 08-01 Phosphate [Mass/Vol] 3.3 mg/dL 2.2 - 4 .6 mg/dL [facility] Phosphorous 3.3 mg/dL Normal 2.2-4.6 [facility] Comment on above: Performed By: #### I PB, HFP, CHM7, MGO, CA ####[facility] (DEFAULT)[address] [place] [address] PT,INR,PTTon 08-01-2024 aPTT Coag (PPP) [Time] 33.1 s [facility] INR Coag (Bld) [Relative time] 1.1 {INR} 0.9 - 1.1 [facility] Interpretation and review of laboratory results Abnormal [facility] PT Coag (PPP) [Time] 14.5 s High [facility] aPTT Coag (Bld) [Time] 33.1 s Normal 24.0-34.3 [facility] Comment on above: Performed By: #### P TPTT ####[facility] (DEFAULT)[address] [place] [address] INR Coag (PPP) [Relative time] 1.1 {INR} Normal 0.9-1.1 [facility] Comment on above: Performed By: #### P TPTT ####[facility] (DEFAULT)[address] [place] [address] PT Coag (PPP) [Time] 14.5 s High 11.9-14.2 [facility] Comment on above: Performed By: #### P TPTT ####[facility] (DEFAULT)[address] [place] [address] Phosphoruson 08-01-2024 Phosphate [Mass/Vol] 2.5 mg/dL Low 2.7-4.5 [facility] Comment on above: Performed By: #### L 3380.1000, L501.5101, L501.5200, L500.4050, L501.2300, L501.4700, L100.0100 ####[facility] [address] [place], [place], [address] Platelet estimateon 08-02-19 25 Platelets LM Ql (Bld) ADEQUATE ADEQ [facility] Review by pathologiston Pathologist review Deandre (Unsp spec) [Interp] Reviewed [facility] Comment on above: Previous reported re sult: Patricia delgado Edited by: SAMIR on 08/12/24:1553SEE REPORT IN PATIENT'S EMR AMENDED REPORT 08/12/24 1553 PATH REV previously reported as: Patricia delgado SCREEN, VREon 08-01-2024 Vancomycin Resistant Enterococcus Negative Normal Negative [facility] Comment on above: Order Comment: Colle ct with an ESWAB; requires 1 perirectal site. Performed By: #### S CV ####[facility] (DEFAULT)[address] [place] [address] Tacrolimus (Prograf)on 08-01 Tacrolimus (Bld) [Mass/Vol] 8.7 ng/mL Normal 5.0-20.0 [facility] Comment on above: Order Comment: Test( s) 550487-Eqhluehxio (FK506), Bloodwas developed and its performance characteristicsdetermined by [employer]. It has not been cleared or approvedby [...] 501.4700, L3380.1000, L501.5200, L500.4050, L501.5101, L100.0100, L501.2300 ####[facility] [address] [place], [place], [address] Total cell counton 5 Cells counted [employer] (Bld/Tiss) [#] 100 MANUAL DIFF [facility] URINALYSIS REFLEX TO CULTURE PERFORMABLEon 08-01-2024 Appearance (U) Clear Clear [facility] Bacteria LM Ql (Urine sed) ABSENT ABSENT [facility] Color (U) Yellow Yellow [facility] Epithelial cells.squamous LM Ql (Urine sed) 0-2/hpf 0-2/hpf, 3-5/hpf = 1+ [facility] Glucose Test strip (U) [Mass/Vol] Negative Negative [facility] Interpretation and review of laboratory results Abnormal [facility] Ketones (U) [Mass/Vol] Negative Negative [facility] Leukocyte esterase Test strip Ql (U) Negative Negative [facility] Nitrite Ql (U) Negative Negative [facility] pH (U) 5.5 [pH] 5.0 - 7.0 [facility] Protein (U) [Mass/Vol] Trace Abnormal Negative [facility] RBC (U) [#/Vol] Negative Negative [facility] RBC LM.HPF (Urine sed) [#/Area] 0-2 [facility] Specific gravity (U) [Rel density] 1.031 1.001 - 1.035 [facility] Urobilinogen (U) [Mass/Vol] 0.2 E.U./dL 0.2 E.U/dL, 1.0 E.U/dL [facility] WBC LM.HPF (Urine sed) [#/Area] 0 - 5 [facility] Appearance (U) Clear Normal Clear [facility] Comment on above: Order Comment: For i ndwelling catheters, specimen collection is acceptable on catheter day 1 and 2 only. ? Performed By: #### U [id number] ####[facility] (DEFAULT)[address] [place] [address] Bacteria ABSENT Normal ABSENT [facility] Comment on above: Order Comment: For i ndwelling catheters, specimen collection is acceptable on catheter day 1 and 2 only. ? Performed By: #### U [id number] ####[facility] (DEFAULT)[address] [place] [address] Blood Urine Negative Normal Negative [facility] Comment on above: Order Comment: For i ndwelling catheters, specimen collection is acceptable on catheter day 1 and 2 only. ? Performed By: #### U [id number] ####[facility] (DEFAULT)[address] [place] [address] Color (U) Yellow Normal Yellow [facility] Comment on above: Order Comment: For i ndwelling catheters, specimen collection is acceptable on catheter day 1 and 2 only. ? Performed By: #### U [id number] ####[facility] (DEFAULT)[address] [place] [address] Glucose Ql (U) Negative Normal Negative [facility] Comment on above: Order Comment: For i ndwelling catheters, specimen collection is acceptable on catheter day 1 and 2 only. ? Performed By: #### U [id number] ####[facility] (DEFAULT)[address] [place] [address] Ketones Ql (U) Negative Normal Negative [facility] Comment on above: Order Comment: For i ndwelling catheters, specimen collection is acceptable on catheter day 1 and 2 only. ? Performed By: #### U [id number] ####[facility] (DEFAULT)[address] [place] [address] Leukocyte esterase Test strip Ql (U) Negative Normal Negative [facility] Comment on above: Order Comment: For i ndwelling catheters, specimen collection is acceptable on catheter day 1 and 2 only. ? Performed By: #### U [id number] ####[facility] (DEFAULT)[address] [facility] [place] [address] Nitrites Urine Negative Normal Negative [facility] Comment on above: Order Comment: For i ndwelling catheters, specimen collection is acceptable on catheter day 1 and 2 only. ? Performed By: #### U [id number] ####[facility] (DEFAULT)[address] [place] [address] pH (U) 5.5 [pH] Normal 5.0-7.0 [facility] Comment on above: Order Comment: For i ndwelling catheters, specimen collection is acceptable on catheter day 1 and 2 only. ? Performed By: #### U [id number] ####[facility] (DEFAULT)[address] [place] [address] Protein Urine Trace Abnormal Negative [facility] Comment on above: Order Comment: For i ndwelling catheters, specimen collection is acceptable on catheter day 1 and 2 only. ? Performed By: #### U [id number] ####[facility] (DEFAULT)[address] [facility] [place] [address] RBC Urine 0-2 Normal 0-2 [facility] Comment on above: Order Comment: For i ndwelling catheters, specimen collection is acceptable on catheter day 1 and 2 only. ? Performed By: #### U [id number] ####[facility] (DEFAULT)[address] [place] [address], [place] [address] Specific [place] Urine 1.031 Normal 1.001-1.035 [facility] Comment on above: Order Comment: For i ndwelling catheters, specimen collection is acceptable on catheter day 1 and 2 only. ? Performed By: #### U [id number] ####[facility] (DEFAULT)[address] [place] [address] Squamous/Epithelial Cells, Urine 0-2/hpf Normal 0-2/hpf, 3-5/hpf = 1+ [facility] Comment on above: Order Comment: For i ndwelling catheters, specimen collection is acceptable on catheter day 1 and 2 only. ? Performed By: #### U [id number] ####[facility] (DEFAULT)[address] [place] [address], [place] [address] Urobilinogen Urine 0.2 E.U./dL Normal 0.2 E.U/d L, 1.0 E.U/dL [facility] Comment on above: Order Comment: For i ndwelling catheters, specimen collection is acceptable on catheter day 1 and 2 only. ? Performed By: #### U [id number] ####[facility] (DEFAULT)[address] [place] [address], [place] [address] WBC Urine 0 - 5 Normal 0 - 5 [facility] Comment on above: Order Comment: For i ndwelling catheters, specimen collection is acceptable on catheter day 1 and 2 only. ? Performed By: #### U [id number] ####[facility] (DEFAULT)[address] [place] [address], [place] [address] L501.5101on 07-29-2024 GGTP 153 IU/L Abnormal 0-65 [facility] Comment on above: Order Comment: Test( s) 221765-Urkesdafda (FK506), Bloodwas developed and its performance characteristicsdetermined by [employer]. It has not been cleared or approvedby the Food and Drug Administration. Result Comment: Perf ormed at: [facility] [address] [id number] [place], [place] [id number] Director: Sergio Machado MD, Phone: [phone] at: [facility], [place] [id number] Director: eRd Graham PhD, Phone: [phone] Performed By: #### L 501.5101, L501.2300, L500.4050, L100.0100, L3380.1000, L501.4700, L501.5200 ####[facility] [address] [place], [address] Tacrolimus (Prograf)on 07-29 Tacrolimus (Bld) [Mass/Vol] 8.5 ng/mL Normal 5.0-20.0 [facility] Comment on above: Order Comment: Test( s) 078364-Iwexkasqmv (FK506), Bloodwas developed and its performance characteristicsdetermined by [employer]. It has not been cleared or approvedby [...] 501.5101, L501.2300, L500.4050, L100.0100, L3380.1000, L501.4700, L501.5200 ####[facility] [address] [place], [address] Absolute lymphocyte counton 07-28-2024 Lymphocytes Auto (Unsp spec) [#/Vol] 1.05 10*3/uL 0.83-4.51 [facility] Absolute neutrophil counton 07-28-2024 Neutrophils (Bld) [#/Vol] 2.1 10*3/uL 2.0-7.7 [facility] Anion gap in Serum or Plasma on 07-28-2024 Anion gap [Moles/Vol] 10 mmol/L 5-15 [facility] Automated lymphocyte count a s percentage of total leukocyteson 07-28-2024 Lymphocytes/100 WBC Auto (Unsp spec) 29.4 % 19-41 [facility] BUN/creatinine ratioon 07-28 Urea nitrogen/Creatinine [Mass ratio] 26.3 mg/mg High 10-20 [facility] Basophil percentageon 2024 Basophils/100 WBC (Bld) 1.7 % High 0-1 [facility] Bilirubin directon 5 Bilirubin.direct [Mass/Vol] 0.14 mg/dL 0.00-0.30 [facility] Bilirubin, Directon 07-29-19 25 Bilirubin.direct [Mass/Vol] 0.14 mg/dL Normal 0.00-0.30 [facility] Comment on above: Performed By: #### L 501.4700, L3380.1000, L501.5200, L500.4050, L501.5101, L100.0100, L501.2300 ####[facility] [address] [place], [place], [address](923) Bilirubin, totalon 5 Bilirubin [Mass/Vol] 0.25 mg/dL 0.00-1.30 [facility] CBC W/Diff, Automatedon 07-01 Absolute Lymph 1.05 X10 3/uL Normal 0.83-4.51 [facility] Comment on above: Performed By: #### L 501.4700, L3380.1000, L501.5200, L500.4050, L501.5101, L100.0100, L501.2300 ####[facility] [address] [place], [address] Absolute Neut 2.1 X10 3/uL Normal 2.0-7.7 [facility] Comment on above: Performed By: #### L 501.4700, L3380.1000, L501.5200, L500.4050, L501.5101, L100.0100, L501.2300 ####[facility] [address] [place], [address] Basophils/100 WBC (Bld) 1.7 % High 0-1 [facility] Comment on above: Performed By: #### L 501.4700, L3380.1000, L501.5200, L500.4050, L501.5101, L100.0100, L501.2300 ####[facility] [address] [place], [address] Eosinophils/100 WBC (Bld) 0.8 % Normal 0-5 [facility] Comment on above: Performed By: #### L 501.4700, L3380.1000, L501.5200, L500.4050, L501.5101, L100.0100, L501.2300 ####[facility] [address] [place], [address] Erythrocyte distribution width (RBC) [Ratio] 17.2 % High 11.6-14.6 [facility] Comment on above: Performed By: #### L 501.4700, L3380.1000, L501.5200, L500.4050, L501.5101, L100.0100, L501.2300 ####[facility] [address] [place], [address] Hematocrit (Bld) [Volume fraction] 35.5 % Low 40-54 [facility] Comment on above: Performed By: #### L 501.4700, L3380.1000, L501.5200, L500.4050, L501.5101, L100.0100, L501.2300 ####[facility] [address] [place], [address] Hemoglobin (Bld) [Mass/Vol] 11.2 g/dL Low 13.0-16.5 [facility] Comment on above: Performed By: #### L 501.4700, L3380.1000, L501.5200, L500.4050, L501.5101, L100.0100, L501.2300 ####[facility] [address] [place], [address] IG% 0.800 Normal 0.0-0.9 [facility] Comment on above: Result Comment: IG% - Immature Granulocytes (promyelocytes, myelocytes andmetamyelocytes) > 1% indicates that a LEFT SHIFT is Present. Performed By: #### L 501.4700, L3380.1000, L501.5200, L500.4050, L501.5101, L100.0100, L501.2300 ####[facility] [address] [place], [address] Lymphocytes/100 WBC (Bld) 29.4 % Normal 19-41 [facility] Comment on above: Performed By: #### L 501.4700, L3380.1000, L501.5200, L500.4050, L501.5101, L100.0100, L501.2300 ####[facility] [address] [place], [address] MCH (RBC) [Entitic mass] 31.3 pg Normal 27.0-32.0 [facility] Comment on above: Performed By: #### L 501.4700, L3380.1000, L501.5200, L500.4050, L501.5101, L100.0100, L501.2300 ####[facility] [address] [place], [address] MCHC (RBC) [Mass/Vol] 31.5 g/dL Low 32-36 [facility] Comment on above: Performed By: #### L 501.4700, L3380.1000, L501.5200, L500.4050, L501.5101, L100.0100, L501.2300 ####[facility] [address] [place], [address] MCV (RBC) [Entitic vol] 99.2 fL High 80-94 [facility] Comment on above: Performed By: #### L 501.4700, L3380.1000, L501.5200, L500.4050, L501.5101, L100.0100, L501.2300 ####[facility] [address] [place], [address] Monocytes/100 WBC (Bld) 9.2 % Normal 0-10 [facility] Comment on above: Performed By: #### L 501.4700, L3380.1000, L501.5200, L500.4050, L501.5101, L100.0100, L501.2300 ####[facility] [address] [place], [address] Neutrophils/100 WBC (Bld) 58.1 % Normal 47-70 [facility] Comment on above: Performed By: #### L 501.4700, L3380.1000, L501.5200, L500.4050, L501.5101, L100.0100, L501.2300 ####[facility] [address] [place], [address] Nucleated RBC (Bld) [#/Vol] 0 10*3/uL Normal 0-5 [facility] Comment on above: Performed By: #### L 501.4700, L3380.1000, L501.5200, L500.4050, L501.5101, L100.0100, L501.2300 ####[facility] [address] [place], [address] Platelet mean volume (Bld) [Entitic vol] 10.1 fL Normal 6.2-12.0 [facility] Comment on above: Performed By: #### L 501.4700, L3380.1000, L501.5200, L500.4050, L501.5101, L100.0100, L501.2300 ####[facility] [address] [place], [address] Platelets (Bld) [#/Vol] 335 10*3/uL Normal 150-450 [facility] Comment on above: Performed By: #### L 501.4700, L3380.1000, L501.5200, L500.4050, L501.5101, L100.0100, L501.2300 ####[facility] [address] [place], [address] RBC (Bld) [#/Vol] 3.58 10*6/uL Low 4.6-6.2 [facility] Comment on above: Performed By: #### L 501.4700, L3380.1000, L501.5200, L500.4050, L501.5101, L100.0100, L501.2300 ####[facility] [address] [place], [address] RDW SD 62.9 fl High 35.1-43.9 [facility] Comment on above: Performed By: #### L 501.4700, L3380.1000, L501.5200, L500.4050, L501.5101, L100.0100, L501.2300 ####[facility] [address] [place], [address] WBC (Bld) [#/Vol] 3.6 10*3/uL Low 4.4-11.0 [facility] Comment on above: Performed By: #### L 501.4700, L3380.1000, L501.5200, L500.4050, L501.5101, L100.0100, L501.2300 ####[facility] [address] [place], [address] Carbon dioxide, total [Moles /volume] in Central venous bloodon 07-28-2024 CO2 [Moles/Vol] 25.4 mmol/L 21.0-32.0 [facility] Chloride assayon 07-28-2024 Chloride [Moles/Vol] 104 mmol/L 98-108 [facility] Comprehensive Metabolic Prof ilon 07-28-2024 Albumin [Mass/Vol] 4.0 g/dL Normal 3.4-4.8 [facility] Comment on above: Performed By: #### L 501.4700, L3380.1000, L501.5200, L500.4050, L501.5101, L100.0100, L501.2300 ####[facility] [address] [place], [address] Albumin/Globulin [Mass ratio] 1.5 {ratio} Normal 0.9-2.4 [facility] Comment on above: Performed By: #### L 501.4700, L3380.1000, L501.5200, L500.4050, L501.5101, L100.0100, L501.2300 ####[facility] [address] [place], [address] ALK PHOS 212 U/L High 40-129 [facility] Comment on above: Performed By: #### L 501.4700, L3380.1000, L501.5200, L500.4050, L501.5101, L100.0100, L501.2300 ####[facility] [address] [place], [address] ALT [Catalytic activity/Vol] 36 U/L Normal <=46 [facility] Comment on above: Performed By: #### L 501.4700, L3380.1000, L501.5200, L500.4050, L501.5101, L100.0100, L501.2300 ####[facility] [address] [place], [address] AST [Catalytic activity/Vol] 23 U/L Normal <=37 [facility] Comment on above: Performed By: #### L 501.4700, L3380.1000, L501.5200, L500.4050, L501.5101, L100.0100, L501.2300 ####[facility] [address] [place], [address] Bilirubin [Mass/Vol] 0.25 mg/dL Normal 0.00-1.30 [facility] Comment on above: Performed By: #### L 501.4700, L3380.1000, L501.5200, L500.4050, L501.5101, L100.0100, L501.2300 ####[facility] [address] [place], [address] BUN/CRE 26.3 RATIO High 10-20 [facility] Comment on above: Performed By: #### L 501.4700, L3380.1000, L501.5200, L500.4050, L501.5101, L100.0100, L501.2300 ####[facility] [address] [place], [address] Calcium [Mass/Vol] 9.7 mg/dL Normal 7.6-11.0 [facility] Comment on above: Performed By: #### L 501.4700, L3380.1000, L501.5200, L500.4050, L501.5101, L100.0100, L501.2300 ####[facility] [address] [place], [address] Chloride [Moles/Vol] 104 mmol/L Normal 98-108 [facility] Comment on above: Performed By: #### L 501.4700, L3380.1000, L501.5200, L500.4050, L501.5101, L100.0100, L501.2300 ####[facility] [address] [place], [address] CO2 [Moles/Vol] 25.4 mmol/L Normal 21.0-32.0 [facility] Comment on above: Performed By: #### L 501.4700, L3380.1000, L501.5200, L500.4050, L501.5101, L100.0100, L501.2300 ####[facility] [address] [place], [address] Creatinine [Mass/Vol] 0.84 mg/dL Normal 0.70-1.20 [facility] Comment on above: Performed By: #### L 501.4700, L3380.1000, L501.5200, L500.4050, L501.5101, L100.0100, L501.2300 ####[facility] [address] [place], [address] GAP 10 Normal 5-15 [facility] Comment on above: Performed By: #### L 501.4700, L3380.1000, L501.5200, L500.4050, L501.5101, L100.0100, L501.2300 ####[facility] [address] [place], [address] GFR/1.73 sq M.predicted among non-blacks MDRD (S/P/Bld) [Vol rate/Area] 100 mL/min/{1.73_m2} Normal >60 [facility] Comment on above: Result Comment: mL/m in/1.73m2 CKD-EPI Creatinine Equation (2020) Performed By: #### L 501.4700, L3380.1000, L501.5200, L500.4050, L501.5101, L100.0100, L501.2300 ####[facility] [address] [place], [address] Globulin (S) [Mass/Vol] 2.7 g/dL Normal 2.2-4.2 [facility] Comment on above: Performed By: #### L 501.4700, L3380.1000, L501.5200, L500.4050, L501.5101, L100.0100, L501.2300 ####[facility] [address] [place], [address] Glucose [Mass/Vol] 93 mg/dL Normal 70-99 [facility] Comment on above: Performed By: #### L 501.4700, L3380.1000, L501.5200, L500.4050, L501.5101, L100.0100, L501.2300 ####[facility] [address] [place], [address] Potassium [Moles/Vol] 4.5 mmol/L Normal 3.3-5.1 [facility] Comment on above: Performed By: #### L 501.4700, L3380.1000, L501.5200, L500.4050, L501.5101, L100.0100, L501.2300 ####[facility] [address] [place], [address] Sodium [Moles/Vol] 140 mmol/L Normal 133-145 [facility] Comment on above: Performed By: #### L 501.4700, L3380.1000, L501.5200, L500.4050, L501.5101, L100.0100, L501.2300 ####[facility] [address] [place], [address] T PROT 6.7 g/dL Normal 5.9-8.4 [facility] Comment on above: Performed By: #### L 501.4700, L3380.1000, L501.5200, L500.4050, L501.5101, L100.0100, L501.2300 ####[facility] [address] [place], [address] Urea nitrogen [Mass/Vol] 22 mg/dL High 4-19 [facility] Comment on above: Performed By: #### L 501.4700, L3380.1000, L501.5200, L500.4050, L501.5101, L100.0100, L501.2300 ####[facility] [address] [place], [address] Eosinophil percentageon 07-01 Eosinophils/100 WBC (Bld) 0.8 % 0-5 [facility] Erythrocyte distribution wid th ratioon 07-28-2024 Erythrocyte distribution width (RBC) [Ratio] 17.2 % High 11.6-14.6 [facility] Erythrocyte distribution wid th standard deviationon 07-28-2024 Erythrocyte distribution width (RBC) [Ratio] 62.9 fl High 35.1-43.9 [facility] Gamma glutamyl transferase ( GGT) measurementon 07-28-2024 Amylase [Catalytic activity/Vol] 134 U/L High 0-65 [facility] Comment on above: Performed at: [address] [id number] Director: Sergio Machado MD, Phone: [phone] at: - [facility] [id number] Director: Red Graham PhD, Phone: [phone] Glomerular filtration rate ( GFR) estimation/1.73 sq m using serum, plasma, or whole bon 07-28-2024 GFR/1.73 sq M.predicted among non-blacks MDRD (S/P/Bld) [Vol rate/Area] 100 mL/min/{1.73_m2} >60 [facility] Comment on above: mL/min/1.73m2 CKD-EP I Creatinine Equation (2020) Hematocrit Auto (Bld) [Volum e fraction]on 07-28-2024 Hematocrit (Bld) [Volume fraction] 35.5 % Low 40-54 [facility] Hemoglobin measurementon Hemoglobin (Bld) [Mass/Vol] 11.2 g/dL Low 13.0-16.5 [facility] Immature granulocytes/100 WB C Auto (Bld)on 07-28-2024 Immature granulocytes/100 WBC (Bld) 0.800 % 0.0-0.9 [facility] Comment on above: IG% - Immature Granu locytes (promyelocytes, myelocytes and metamyelocytes) > 1% indicates that a LEFT SHIFT is Present. Laboratory - Chemistry and C hemistry - challengeon 07-28-2024 AST [Catalytic activity/Vol] 23 U/L <38 [facility] MCV (mean corpuscular volume ) determinationon 07-28-2024 MCV (RBC) [Entitic vol] 99.2 fL High 80-94 [facility] Magnesiumon 07-28-2024 Magnesium [Mass/Vol] 1.6 mg/dL Normal 1.5-2.2 [facility] Comment on above: Performed By: #### L 501.4700, L3380.1000, L501.5200, L500.4050, L501.5101, L100.0100, L501.2300 ####[facility] [address] [place], [place], [id number] Magnesium measurement (mass/ volume)on 07-28-2024 Magnesium (Unsp spec) [Mass/Vol] 1.6 mg/dL 1.5-2.2 [facility] Mean corpuscular hemoglobin (MCH) determinationon 07-28-2024 MCH (RBC) [Entitic mass] 31.3 pg 27.0-32.0 [facility] Mean corpuscular hemoglobin concentration (MCHC) determinationon 07-28-2024 MCHC (RBC) [Mass/Vol] 31.5 g/dL Low 32-36 [facility] Mean platelet volume determi nationon 07-28-2024 Platelet mean volume (Bld) [Entitic vol] 10.1 fL 6.2-12.0 [facility] Monocyte percentageon 2024 Monocytes/100 WBC (Bld) 9.2 % 0-10 [facility] Neutrophil percentageon 07-01 Neutrophils/100 WBC (Bld) 58.1 % 47-70 [facility] Nucleated red blood cell per centageon 07-28-2024 Nucleated RBC/100 WBC (Bld) [Ratio] 0 % 0-5 [facility] Phosphoruson 07-28-2024 Phosphate [Mass/Vol] 3.9 mg/dL Normal 2.7-4.5 [facility] Comment on above: Performed By: #### L 501.4700, L3380.1000, L501.5200, L500.4050, L501.5101, L100.0100, L501.2300 ####[facility] [address] [place], [place], [id number] Platelet counton 07-28-2024 Platelets (Bld) [#/Vol] 335 10*3/uL 150-450 [facility] Potassium measurement (mass/ volume)on 07-28-2024 Potassium (Unsp spec) [Mass/Vol] 4.5 mmol/L 3.3-5.1 [facility] RBC Auto (Bld) [#/Vol]on RBC (Bld) [#/Vol] 3.58 10*6/uL Low 4.6-6.2 [facility] Serum creatinine measurement (mass/volume)on 07-28-2024 Creatinine [Mass/Vol] 0.84 mg/dL 0.70-1.20 [facility] Serum globulin measurementon 07-28-2024 Globulin (S) [Mass/Vol] 2.7 g/dL 2.2-4.2 [facility] Serum glucose measurement (m ass/volume)on 07-28-2024 Glucose [Mass/Vol] 93 mg/dL 70-99 [facility] Serum or plasma alanine craig otransferase (ALT) measurementon 07-28-2024 ALT [Catalytic activity/Vol] 36 U/L <47 [facility] Serum or plasma albumin megha urement (mass/volume)on 07-28-2024 Albumin [Mass/Vol] 4.0 g/dL 3.4-4.8 [facility] Serum or plasma albumin/glob ulin mass ratioon 07-28-2024 Albumin/Globulin [Mass ratio] 1.5 {ratio} 0.9-2.4 [facility] Serum or plasma alkaline sal sphatase measurementon 07-28-2024 ALP [Catalytic activity/Vol] 212 U/L High 40-129 [facility] Serum or plasma calcium megha urement (mass/volume)on 07-28-2024 Calcium [Mass/Vol] 9.7 mg/dL 7.6-11.0 [facility] Serum or plasma urea nitroge n measurement (mass/volume)on 07-28-2024 Urea nitrogen [Mass/Vol] 22 mg/dL High 4-19 [facility] Sodium levelon 07-28-2024 Sodium [Moles/Vol] 140 mmol/L 133-145 [facility] Total proteinon 07-28-2024 Protein [Mass/Vol] 6.7 g/dL 5.9-8.4 [facility] White blood cell (WBC) count on 07-28-2024 WBC (Bld) [#/Vol] 3.6 10*3/uL Low 4.4-11.0 [facility] Bilirubin, Directon 07-27-19 25 Bilirubin.direct [Mass/Vol] 0.12 mg/dL Normal 0.00-0.30 [facility] Comment on above: Performed By: #### L 501.5101, L501.2300, L500.4050, L100.0100, L3380.1000, L501.4700, L501.5200 ####[facility] [address] [place], [place], [id number] Blood manual differential co mment interpretation (narrative result)on 07-26-2024 Manual differential comment Deandre (Bld) [Interp] SCANNED [facility] CBC W/Diff, Automatedon 07-01 SMEAR COMMENT SCANNED Normal [facility] Comment on above: Performed By: #### L 501.5101, L501.2300, L500.4050, L100.0100, L3380.1000, L501.4700, L501.5200 ####[facility] [address] [place], [place], [id number] Comprehensive Metabolic Prof akon 07-26-2024 Albumin [Mass/Vol] 3.9 g/dL Normal 3.4-4.8 [facility] Comment on above: Performed By: #### L 501.5101, L501.2300, L500.4050, L100.0100, L3380.1000, L501.4700, L501.5200 ####[facility] [address] [place], [address] Albumin/Globulin [Mass ratio] 1.5 {ratio} Normal 0.9-2.4 [facility] Comment on above: Performed By: #### L 501.5101, L501.2300, L500.4050, L100.0100, L3380.1000, L501.4700, L501.5200 ####[facility] [address] [place], [place], [id number] ALK PHOS 212 U/L High 40-129 [facility] Comment on above: Performed By: #### L 501.5101, L501.2300, L500.4050, L100.0100, L3380.1000, L501.4700, L501.5200 ####[facility] [address] [place], [place], [address] ALT [Catalytic activity/Vol] 47 U/L Normal <=46 [facility] Comment on above: Performed By: #### L 501.5101, L501.2300, L500.4050, L100.0100, L3380.1000, L501.4700, L501.5200 ####[facility] [address] [place], [place], [phone] AST [Catalytic activity/Vol] 39 U/L High <=37 [facility] Comment on above: Performed By: #### L 501.5101, L501.2300, L500.4050, L100.0100, L3380.1000, L501.4700, L501.5200 ####[facility] [address] [place], [address] Bilirubin [Mass/Vol] 0.20 mg/dL Normal 0.00-1.30 [facility] Comment on above: Performed By: #### L 501.5101, L501.2300, L500.4050, L100.0100, L3380.1000, L501.4700, L501.5200 ####[facility] [address] [place], [address] BUN/CRE 24.3 RATIO High 10-20 [facility] Comment on above: Performed By: #### L 501.5101, L501.2300, L500.4050, L100.0100, L3380.1000, L501.4700, L501.5200 ####[facility] [address] [place], [address] Calcium [Mass/Vol] 9.3 mg/dL Normal 7.6-11.0 [facility] Comment on above: Performed By: #### L 501.5101, L501.2300, L500.4050, L100.0100, L3380.1000, L501.4700, L501.5200 ####[facility] [address] [place], [address] Chloride [Moles/Vol] 103 mmol/L Normal 98-108 [facility] Comment on above: Performed By: #### L 501.5101, L501.2300, L500.4050, L100.0100, L3380.1000, L501.4700, L501.5200 ####[facility] [address] [place], [address] CO2 [Moles/Vol] 24.4 mmol/L Normal 21.0-32.0 [facility] Comment on above: Performed By: #### L 501.5101, L501.2300, L500.4050, L100.0100, L3380.1000, L501.4700, L501.5200 ####[facility] [address] [place], [place], [id number] Creatinine [Mass/Vol] 0.94 mg/dL Normal 0.70-1.20 [facility] Comment on above: Performed By: #### L 501.5101, L501.2300, L500.4050, L100.0100, L3380.1000, L501.4700, L501.5200 ####[facility] [address] [place], [address] GAP 11 Normal 5-15 [facility] Comment on above: Performed By: #### L 501.5101, L501.2300, L500.4050, L100.0100, L3380.1000, L501.4700, L501.5200 ####[facility] [address] [place], [place], [phone] GFR/1.73 sq M.predicted among non-blacks MDRD (S/P/Bld) [Vol rate/Area] 93 mL/min/{1.73_m2} Normal >60 [facility] Comment on above: Result Comment: mL/m in/1.73m2 CKD-EPI Creatinine Equation (2020) Performed By: #### L 501.5101, L501.2300, L500.4050, L100.0100, L3380.1000, L501.4700, L501.5200 ####[facility] [address] [place], [address] Globulin (S) [Mass/Vol] 2.7 g/dL Normal 2.2-4.2 [facility] Comment on above: Performed By: #### L 501.5101, L501.2300, L500.4050, L100.0100, L3380.1000, L501.4700, L501.5200 ####[facility] [address] [place], [address] Glucose [Mass/Vol] 88 mg/dL Normal 70-99 [facility] Comment on above: Performed By: #### L 501.5101, L501.2300, L500.4050, L100.0100, L3380.1000, L501.4700, L501.5200 ####[facility] [address] [place], [address] Potassium [Moles/Vol] 4.2 mmol/L Normal 3.3-5.1 [facility] Comment on above: Performed By: #### L 501.5101, L501.2300, L500.4050, L100.0100, L3380.1000, L501.4700, L501.5200 ####[facility] [address] [place], [address] Sodium [Moles/Vol] 139 mmol/L Normal 133-145 [facility] Comment on above: Performed By: #### L 501.5101, L501.2300, L500.4050, L100.0100, L3380.1000, L501.4700, L501.5200 ####[facility] [address] [place], [address] T PROT 6.6 g/dL Normal 5.9-8.4 [facility] Comment on above: Performed By: #### L 501.5101, L501.2300, L500.4050, L100.0100, L3380.1000, L501.4700, L501.5200 ####[facility] [address] [place], [address] Urea nitrogen [Mass/Vol] 23 mg/dL High 4-19 [facility] Comment on above: Performed By: #### L 501.5101, L501.2300, L500.4050, L100.0100, L3380.1000, L501.4700, L501.5200 ####[facility] [address] [place], [address] Gamma glutamyl transferase ( GGT) measurementon 07-26-2024 Amylase [Catalytic activity/Vol] 153 U/L High 0-65 [facility] Comment on above: Performed at: [facility] [address] [id number] Director: Sergio Machado MD, Phone: [phone] at: [address] [id number] Director: Red Graham PhD, Phone: [phone] Magnesiumon 07-26-2024 Magnesium [Mass/Vol] 1.8 mg/dL Normal 1.5-2.2 [facility] Comment on above: Performed By: #### L 501.5101, L501.2300, L500.4050, L100.0100, L3380.1000, L501.4700, L501.5200 ####[facility] [address] [place], [address] Phosphoruson 07-26-2024 Phosphate [Mass/Vol] 3.0 mg/dL Normal 2.7-4.5 [facility] Comment on above: Performed By: #### L 501.5101, L501.2300, L500.4050, L100.0100, L3380.1000, L501.4700, L501.5200 ####[facility] [address] [place], [address] L501.5101on 07-25-2024 GGTP 52 IU/L Normal 0-65 [facility] Comment on above: Order Comment: Test( s) [id number] ([id number]), Bloodwas developed and its performance characteristicsdetermined by [facility]. It has not been cleared or approvedby the Food and Drug Administration. Result Comment: Perf ormed at: [address] [id number] Director: Sergio Machado MD, Phone: [phone] at: [facility] IdentropyAnthony [id number] [place], [place] [id number] Director: Red Graham PhD, Phone: [phone] Performed By: #### L 100.0100, L501.2300, L501.5101, L3380.1000, L501.5200, L500.4050, L501.4700 ####[facility] [address] [place], [address] Tacrolimus (Prograf)on 07-25 Tacrolimus (Bld) [Mass/Vol] 10.3 ng/mL Normal 5.0-20.0 [facility] Comment on above: Order Comment: Test( s) [id number]-Mxliqklpvc (FK506), Bloodwas developed and its performance characteristicsdetermined by [facility]. It has not been cleared or approvedby [...] 100.0100, L501.2300, L501.5101, L3380.1000, L501.5200, L500.4050, L501.4700 ####[facility] [address] [place], [address] Bilirubin, Directon 07-22-19 Bilirubin.direct [Mass/Vol] 0.16 mg/dL Normal 0.00-0.30 [facility] Comment on above: Performed By: #### L 100.0100, L501.2300, L501.5101, L3380.1000, L501.5200, L500.4050, L501.4700 ####[facility] [address] [place], [address] CBC W/Diff, Automatedon 05- PATH REV Reviewed Normal [facility] Comment on above: Result Comment: SEE REPORT IN PATIENT'S EMR AMENDED REPORT 07/21/24 1543 PATH REV previously reported as: June Performed By: #### L 501.2300, L100.0100, L500.4050, L3380.1000, L501.5200, L501.4700, L501.5101 ####[facility] [address] [place], [address] Absolute Lymph 0.95 X10 3/uL Normal 0.83-4.51 [facility] Comment on above: Performed By: #### L 100.0100, L501.2300, L501.5101, L3380.1000, L501.5200, L500.4050, L501.4700 ####[facility] [address] [place], [address] Absolute Neut 2.9 X10 3/uL Normal 2.0-7.7 [facility] Comment on above: Performed By: #### L 100.0100, L501.2300, L501.5101, L3380.1000, L501.5200, L500.4050, L501.4700 ####[facility] [address] [place], [address] Basophils/100 WBC (Bld) 1.4 % High 0-1 [facility] Comment on above: Performed By: #### L 100.0100, L501.2300, L501.5101, L3380.1000, L501.5200, L500.4050, L501.4700 ####[facility] [address] [place], [address] Eosinophils/100 WBC (Bld) 0.2 % Normal 0-5 [facility] Comment on above: Performed By: #### L 100.0100, L501.2300, L501.5101, L3380.1000, L501.5200, L500.4050, L501.4700 ####[facility] [address] [place], [address] Erythrocyte distribution width (RBC) [Ratio] 17.4 % High 11.6-14.6 [facility] Comment on above: Performed By: #### L 100.0100, L501.2300, L501.5101, L3380.1000, L501.5200, L500.4050, L501.4700 ####[facility] [address] [place], [address] Hematocrit (Bld) [Volume fraction] 35.6 % Low 40-54 [facility] Comment on above: Performed By: #### L 100.0100, L501.2300, L501.5101, L3380.1000, L501.5200, L500.4050, L501.4700 ####[facility] [address] [place], [address] Hemoglobin (Bld) [Mass/Vol] 11.3 g/dL Low 13.0-16.5 [facility] Comment on above: Performed By: #### L 100.0100, L501.2300, L501.5101, L3380.1000, L501.5200, L500.4050, L501.4700 ####[facility] [address] [place], [address] IG% 0.700 Normal 0.0-0.9 [facility] Comment on above: Result Comment: IG% - Immature Granulocytes (promyelocytes, myelocytes andmetamyelocytes) > 1% indicates that a LEFT SHIFT is Present. Performed By: #### L 100.0100, L501.2300, L501.5101, L3380.1000, L501.5200, L500.4050, L501.4700 ####[facility] [address] [place], [address] Lymphocytes/100 WBC (Bld) 21.7 % Normal 19-41 [facility] Comment on above: Performed By: #### L 100.0100, L501.2300, L501.5101, L3380.1000, L501.5200, L500.4050, L501.4700 ####[facility] [address] [place], [address] MCH (RBC) [Entitic mass] 31.4 pg Normal 27.0-32.0 [facility] Comment on above: Performed By: #### L 100.0100, L501.2300, L501.5101, L3380.1000, L501.5200, L500.4050, L501.4700 ####[facility] [address] [place], [address] MCHC (RBC) [Mass/Vol] 31.7 g/dL Low 32-36 [facility] Comment on above: Performed By: #### L 100.0100, L501.2300, L501.5101, L3380.1000, L501.5200, L500.4050, L501.4700 ####[facility] [address] [place], [address] MCV (RBC) [Entitic vol] 98.9 fL High 80-94 [facility] Comment on above: Performed By: #### L 100.0100, L501.2300, L501.5101, L3380.1000, L501.5200, L500.4050, L501.4700 ####[facility] [address] [place], [address] Monocytes/100 WBC (Bld) 11.0 % High 0-10 [facility] Comment on above: Performed By: #### L 100.0100, L501.2300, L501.5101, L3380.1000, L501.5200, L500.4050, L501.4700 ####[facility] [address] [place], [address] Neutrophils/100 WBC (Bld) 65.0 % Normal 47-70 [facility] Comment on above: Performed By: #### L 100.0100, L501.2300, L501.5101, L3380.1000, L501.5200, L500.4050, L501.4700 ####[facility] [address] [place], [address] Nucleated RBC (Bld) [#/Vol] 0 10*3/uL Normal 0-5 [facility] Comment on above: Performed By: #### L 100.0100, L501.2300, L501.5101, L3380.1000, L501.5200, L500.4050, L501.4700 ####[facility] [address] [place], [address] Platelet mean volume (Bld) [Entitic vol] 10.7 fL Normal 6.2-12.0 [facility] Comment on above: Performed By: #### L 100.0100, L501.2300, L501.5101, L3380.1000, L501.5200, L500.4050, L501.4700 ####[facility] [address] [place], [address] Platelets (Bld) [#/Vol] 349 10*3/uL Normal 150-450 [facility] Comment on above: Performed By: #### L 100.0100, L501.2300, L501.5101, L3380.1000, L501.5200, L500.4050, L501.4700 ####[facility] [address] [place], [address] RBC (Bld) [#/Vol] 3.60 10*6/uL Low 4.6-6.2 [facility] Comment on above: Performed By: #### L 100.0100, L501.2300, L501.5101, L3380.1000, L501.5200, L500.4050, L501.4700 ####[facility] [address] [place], [address] RDW SD 63.8 fl High 35.1-43.9 [facility] Comment on above: Performed By: #### L 100.0100, L501.2300, L501.5101, L3380.1000, L501.5200, L500.4050, L501.4700 ####[facility] [address] [place], [place], [address] WBC (Bld) [#/Vol] 4.4 10*3/uL Normal 4.4-11.0 [facility] Comment on above: Performed By: #### L 100.0100, L501.2300, L501.5101, L3380.1000, L501.5200, L500.4050, L501.4700 ####[facility] [address] [place], [address] Comprehensive Metabolic Prof [facility] 07-21-2024 Albumin [Mass/Vol] 4.0 g/dL Normal 3.4-4.8 [facility] Comment on above: Performed By: #### L 100.0100, L501.2300, L501.5101, L3380.1000, L501.5200, L500.4050, L501.4700 ####[facility] [address] [place], [address] Albumin/Globulin [Mass ratio] 1.4 {ratio} Normal 0.9-2.4 [facility] Comment on above: Performed By: #### L 100.0100, L501.2300, L501.5101, L3380.1000, L501.5200, L500.4050, L501.4700 ####[facility] [address] [place], [address] ALK PHOS 151 U/L High 40-129 [facility] Comment on above: Performed By: #### L 100.0100, L501.2300, L501.5101, L3380.1000, L501.5200, L500.4050, L501.4700 ####[facility] [address] [place], [address] ALT [Catalytic activity/Vol] 26 U/L Normal <=46 [facility] Comment on above: Performed By: #### L 100.0100, L501.2300, L501.5101, L3380.1000, L501.5200, L500.4050, L501.4700 ####[facility] [address] [place], [address] AST [Catalytic activity/Vol] 28 U/L Normal <=37 [facility] Comment on above: Performed By: #### L 100.0100, L501.2300, L501.5101, L3380.1000, L501.5200, L500.4050, L501.4700 ####[facility] [address] [place], [address] Bilirubin [Mass/Vol] 0.30 mg/dL Normal 0.00-1.30 [facility] Comment on above: Performed By: #### L 100.0100, L501.2300, L501.5101, L3380.1000, L501.5200, L500.4050, L501.4700 ####[facility] [address] [place], [address] BUN/CRE 29.9 RATIO High 10-20 [facility] Comment on above: Performed By: #### L 100.0100, L501.2300, L501.5101, L3380.1000, L501.5200, L500.4050, L501.4700 ####[facility] [address] [place], [address] Calcium [Mass/Vol] 9.5 mg/dL Normal 7.6-11.0 [facility] Comment on above: Performed By: #### L 100.0100, L501.2300, L501.5101, L3380.1000, L501.5200, L500.4050, L501.4700 ####[facility] [address] [place], [address] Chloride [Moles/Vol] 104 mmol/L Normal 98-108 [facility] Comment on above: Performed By: #### L 100.0100, L501.2300, L501.5101, L3380.1000, L501.5200, L500.4050, L501.4700 ####[facility] [address] [place], [address] CO2 [Moles/Vol] 26.1 mmol/L Normal 21.0-32.0 [facility] Comment on above: Performed By: #### L 100.0100, L501.2300, L501.5101, L3380.1000, L501.5200, L500.4050, L501.4700 ####[facility] [address] [place], [address] Creatinine [Mass/Vol] 0.95 mg/dL Normal 0.70-1.20 [facility] Comment on above: Performed By: #### L 100.0100, L501.2300, L501.5101, L3380.1000, L501.5200, L500.4050, L501.4700 ####[facility] [address] [place], [address] GAP 11 Normal 5-15 [facility] Comment on above: Performed By: #### L 100.0100, L501.2300, L501.5101, L3380.1000, L501.5200, L500.4050, L501.4700 ####[facility] [address] [place], [address] GFR/1.73 sq M.predicted among non-blacks MDRD (S/P/Bld) [Vol rate/Area] 92 mL/min/{1.73_m2} Normal >60 [facility] Comment on above: Result Comment: mL/m in/1.73m2 CKD-EPI Creatinine Equation (2020) Performed By: #### L 100.0100, L501.2300, L501.5101, L3380.1000, L501.5200, L500.4050, L501.4700 ####[facility] [address] [place], [address] Globulin (S) [Mass/Vol] 2.8 g/dL Normal 2.2-4.2 [facility] Comment on above: Performed By: #### L 100.0100, L501.2300, L501.5101, L3380.1000, L501.5200, L500.4050, L501.4700 ####[facility] [address] [place], [address] Glucose [Mass/Vol] 102 mg/dL High 70-99 [facility] Comment on above: Performed By: #### L 100.0100, L501.2300, L501.5101, L3380.1000, L501.5200, L500.4050, L501.4700 ####[facility] [address] [place], [address] Potassium [Moles/Vol] 4.6 mmol/L Normal 3.3-5.1 [facility] Comment on above: Performed By: #### L 100.0100, L501.2300, L501.5101, L3380.1000, L501.5200, L500.4050, L501.4700 ####[facility] [address] [place], [address] Sodium [Moles/Vol] 141 mmol/L Normal 133-145 [facility] Comment on above: Performed By: #### L 100.0100, L501.2300, L501.5101, L3380.1000, L501.5200, L500.4050, L501.4700 ####[facility] [address] [place], [address] T PROT 6.9 g/dL Normal 5.9-8.4 [facility] Comment on above: Performed By: #### L 100.0100, L501.2300, L501.5101, L3380.1000, L501.5200, L500.4050, L501.4700 ####[facility] [address] [place], [address] Urea nitrogen [Mass/Vol] 28 mg/dL High 4-19 [facility] Comment on above: Performed By: #### L 100.0100, L501.2300, L501.5101, L3380.1000, L501.5200, L500.4050, L501.4700 ####[facility] [address] [place], [address] Magnesiumon 07-21-2024 Magnesium [Mass/Vol] 1.8 mg/dL Normal 1.5-2.2 [facility] Comment on above: Performed By: #### L 100.0100, L501.2300, L501.5101, L3380.1000, L501.5200, L500.4050, L501.4700 ####[facility] [address] [place], [address] Phosphoruson 07-21-2024 Phosphate [Mass/Vol] 4.4 mg/dL Normal 2.7-4.5 [facility] Comment on above: Performed By: #### L 100.0100, L501.2300, L501.5101, L3380.1000, L501.5200, L500.4050, L501.4700 ####[facility] [address] [place], [place], [address] L501.5101on 07-20-2024 GGTP 27 IU/L Normal 0-65 [facility] Comment on above: Order Comment: Test( s) [id number]-Wjaueazejt (FK506), Bloodwas developed and its performance characteristicsdetermined by [facility]. It has not been cleared or approvedby the Food and Drug Administration. Result Comment: Perf ormed at: [facility] [address] [id number] Director: Sergio Machado MD, Phone: [phone] at: [facility] [address] [id number] Director: Red Graham PhD, Phone: [phone] Performed By: #### L 501.5200, L500.4050, L501.2300, L501.5101, L3380.1000, L100.0100, L501.4700 ####[facility] [address] [place], [place], [address] Tacrolimus (Prograf)on 07-20 Tacrolimus (Bld) [Mass/Vol] 9.3 ng/mL Normal 5.0-20.0 [facility] Comment on above: Order Comment: Test( s) [id number]-Lhsphosmnm (FK506), Bloodwas developed and its performance characteristicsdetermined by [facility]. It has not been cleared or approvedby [...] 501.5200, L500.4050, L501.2300, L501.5101, L3380.1000, L100.0100, L501.4700 ####[facility] [address] [place], [address] Bilirubin, Directon 07-19-19 25 Bilirubin.direct [Mass/Vol] 0.17 mg/dL Normal 0.00-0.30 [facility] Comment on above: Performed By: #### L 501.5200, L500.4050, L501.2300, L501.5101, L3380.1000, L100.0100, L501.4700 ####[facility] [address] [place], [address] CBC W/Diff, Automatedon 05 Absolute Lymph 1.03 X10 3/uL Normal 0.83-4.51 [facility] Comment on above: Performed By: #### L 501.5200, L500.4050, L501.2300, L501.5101, L3380.1000, L100.0100, L501.4700 ####[facility] [address] [place], [address] Absolute Neut 3.1 X10 3/uL Normal 2.0-7.7 [facility] Comment on above: Performed By: #### L 501.5200, L500.4050, L501.2300, L501.5101, L3380.1000, L100.0100, L501.4700 ####[facility] [address] [place], [address] Basophils/100 WBC (Bld) 1.3 % High 0-1 [facility] Comment on above: Performed By: #### L 501.5200, L500.4050, L501.2300, L501.5101, L3380.1000, L100.0100, L501.4700 ####[facility] [address] [place], [address] Eosinophils/100 WBC (Bld) 0.2 % Normal 0-5 [facility] Comment on above: Performed By: #### L 501.5200, L500.4050, L501.2300, L501.5101, L3380.1000, L100.0100, L501.4700 ####[facility] [address] [place], [address] Erythrocyte distribution width (RBC) [Ratio] 17.4 % High 11.6-14.6 [facility] Comment on above: Performed By: #### L 501.5200, L500.4050, L501.2300, L501.5101, L3380.1000, L100.0100, L501.4700 ####[facility] [address] [place], [address] Hematocrit (Bld) [Volume fraction] 37.0 % Low 40-54 [facility] Comment on above: Performed By: #### L 501.5200, L500.4050, L501.2300, L501.5101, L3380.1000, L100.0100, L501.4700 ####[facility] [address] [place], [address] Hemoglobin (Bld) [Mass/Vol] 12.0 g/dL Low 13.0-16.5 [facility] Comment on above: Performed By: #### L 501.5200, L500.4050, L501.2300, L501.5101, L3380.1000, L100.0100, L501.4700 ####[facility] [address] [place], [address] IG% 1.100 High 0.0-0.9 [facility] Comment on above: Result Comment: IG% - Immature Granulocytes (promyelocytes, myelocytes andmetamyelocytes) > 1% indicates that a LEFT SHIFT is Present. Performed By: #### L 501.5200, L500.4050, L501.2300, L501.5101, L3380.1000, L100.0100, L501.4700 ####[facility] [address] [place], [address] Lymphocytes/100 WBC (Bld) 22.2 % Normal 19-41 [facility] Comment on above: Performed By: #### L 501.5200, L500.4050, L501.2300, L501.5101, L3380.1000, L100.0100, L501.4700 ####[facility] [address] [place], [address] MCH (RBC) [Entitic mass] 32.0 pg Normal 27.0-32.0 [facility] Comment on above: Performed By: #### L 501.5200, L500.4050, L501.2300, L501.5101, L3380.1000, L100.0100, L501.4700 ####[facility] [address] [place], [address] MCHC (RBC) [Mass/Vol] 32.4 g/dL Normal 32-36 [facility] Comment on above: Performed By: #### L 501.5200, L500.4050, L501.2300, L501.5101, L3380.1000, L100.0100, L501.4700 ####[facility] [address] [place], [address] MCV (RBC) [Entitic vol] 98.7 fL High 80-94 [facility] Comment on above: Performed By: #### L 501.5200, L500.4050, L501.2300, L501.5101, L3380.1000, L100.0100, L501.4700 ####[facility] [address] [place], [address] Monocytes/100 WBC (Bld) 8.0 % Normal 0-10 [facility] Comment on above: Performed By: #### L 501.5200, L500.4050, L501.2300, L501.5101, L3380.1000, L100.0100, L501.4700 ####[facility] [address] [place], [address] Neutrophils/100 WBC (Bld) 67.2 % Normal 47-70 [facility] Comment on above: Performed By: #### L 501.5200, L500.4050, L501.2300, L501.5101, L3380.1000, L100.0100, L501.4700 ####[facility] [address] [place], [address] Nucleated RBC (Bld) [#/Vol] 0 10*3/uL Normal 0-5 [facility] Comment on above: Performed By: #### L 501.5200, L500.4050, L501.2300, L501.5101, L3380.1000, L100.0100, L501.4700 ####[facility] [address] [place], [address] Platelet mean volume (Bld) [Entitic vol] 10.4 fL Normal 6.2-12.0 [facility] Comment on above: Performed By: #### L 501.5200, L500.4050, L501.2300, L501.5101, L3380.1000, L100.0100, L501.4700 ####[facility] [address] [place], [address] Platelets (Bld) [#/Vol] 402 10*3/uL Normal 150-450 [facility] Comment on above: Performed By: #### L 501.5200, L500.4050, L501.2300, L501.5101, L3380.1000, L100.0100, L501.4700 ####[facility] [address] [place], [address] RBC (Bld) [#/Vol] 3.75 10*6/uL Low 4.6-6.2 [facility] Comment on above: Performed By: #### L 501.5200, L500.4050, L501.2300, L501.5101, L3380.1000, L100.0100, L501.4700 ####[facility] [address] [place], [address] RDW SD 62.9 fl High 35.1-43.9 [facility] Comment on above: Performed By: #### L 501.5200, L500.4050, L501.2300, L501.5101, L3380.1000, L100.0100, L501.4700 ####[facility] [address] [place], [address] WBC (Bld) [#/Vol] 4.6 10*3/uL Normal 4.4-11.0 [facility] Comment on above: Performed By: #### L 501.5200, L500.4050, L501.2300, L501.5101, L3380.1000, L100.0100, L501.4700 ####[facility] [address] [place], [address] Comprehensive Metabolic Prof [facility] 07-18-2024 Albumin [Mass/Vol] 4.2 g/dL Normal 3.4-4.8 [facility] Comment on above: Performed By: #### L 501.5200, L500.4050, L501.2300, L501.5101, L3380.1000, L100.0100, L501.4700 ####[facility] [address] [place], [address] Albumin/Globulin [Mass ratio] 1.4 {ratio} Normal 0.9-2.4 [facility] Comment on above: Performed By: #### L 501.5200, L500.4050, L501.2300, L501.5101, L3380.1000, L100.0100, L501.4700 ####[facility] [address] [place], [address] ALK PHOS 136 U/L High 40-129 [facility] Comment on above: Performed By: #### L 501.5200, L500.4050, L501.2300, L501.5101, L3380.1000, L100.0100, L501.4700 ####[facility] [address] [place], [address] ALT [Catalytic activity/Vol] 22 U/L Normal <=46 [facility] Comment on above: Performed By: #### L 501.5200, L500.4050, L501.2300, L501.5101, L3380.1000, L100.0100, L501.4700 ####[facility] [address] [place], [address] AST [Catalytic activity/Vol] 23 U/L Normal <=37 [facility] Comment on above: Performed By: #### L 501.5200, L500.4050, L501.2300, L501.5101, L3380.1000, L100.0100, L501.4700 ####[facility] [address] [place], [address] Bilirubin [Mass/Vol] 0.28 mg/dL Normal 0.00-1.30 [facility] Comment on above: Performed By: #### L 501.5200, L500.4050, L501.2300, L501.5101, L3380.1000, L100.0100, L501.4700 ####[facility] [address] [place], [address] BUN/CRE 29.6 RATIO High 10-20 [facility] Comment on above: Performed By: #### L 501.5200, L500.4050, L501.2300, L501.5101, L3380.1000, L100.0100, L501.4700 ####[facility] [address] [place], [address] Calcium [Mass/Vol] 9.3 mg/dL Normal 7.6-11.0 [facility] Comment on above: Performed By: #### L 501.5200, L500.4050, L501.2300, L501.5101, L3380.1000, L100.0100, L501.4700 ####[facility] [address] [place], [address] Chloride [Moles/Vol] 104 mmol/L Normal 98-108 [facility] Comment on above: Performed By: #### L 501.5200, L500.4050, L501.2300, L501.5101, L3380.1000, L100.0100, L501.4700 ####[facility] [address] [place], [address] CO2 [Moles/Vol] 26.7 mmol/L Normal 21.0-32.0 [facility] Comment on above: Performed By: #### L 501.5200, L500.4050, L501.2300, L501.5101, L3380.1000, L100.0100, L501.4700 ####[facility] [address] [place], [address] Creatinine [Mass/Vol] 0.92 mg/dL Normal 0.70-1.20 [facility] Comment on above: Performed By: #### L 501.5200, L500.4050, L501.2300, L501.5101, L3380.1000, L100.0100, L501.4700 ####[facility] [address] [place], [address] GAP 10 Normal 5-15 [facility] Comment on above: Performed By: #### L 501.5200, L500.4050, L501.2300, L501.5101, L3380.1000, L100.0100, L501.4700 ####[facility] [address] [place], [address] GFR/1.73 sq M.predicted among non-blacks MDRD (S/P/Bld) [Vol rate/Area] 95 mL/min/{1.73_m2} Normal >60 [facility] Comment on above: Result Comment: mL/m in/1.73m2 CKD-EPI Creatinine Equation (2020) Performed By: #### L 501.5200, L500.4050, L501.2300, L501.5101, L3380.1000, L100.0100, L501.4700 ####[facility] [address] [place], [address] Globulin (S) [Mass/Vol] 2.9 g/dL Normal 2.2-4.2 [facility] Comment on above: Performed By: #### L 501.5200, L500.4050, L501.2300, L501.5101, L3380.1000, L100.0100, L501.4700 ####[facility] [address] [place], [address] Glucose [Mass/Vol] 88 mg/dL Normal 70-99 [facility] Comment on above: Performed By: #### L 501.5200, L500.4050, L501.2300, L501.5101, L3380.1000, L100.0100, L501.4700 ####[facility] [address] [place], [address] Potassium [Moles/Vol] 4.5 mmol/L Normal 3.3-5.1 [facility] Comment on above: Performed By: #### L 501.5200, L500.4050, L501.2300, L501.5101, L3380.1000, L100.0100, L501.4700 ####[facility] [address] [place], [address] Sodium [Moles/Vol] 141 mmol/L Normal 133-145 [facility] Comment on above: Performed By: #### L 501.5200, L500.4050, L501.2300, L501.5101, L3380.1000, L100.0100, L501.4700 ####[facility] [address] [place], [address] T PROT 7.1 g/dL Normal 5.9-8.4 [facility] Comment on above: Performed By: #### L 501.5200, L500.4050, L501.2300, L501.5101, L3380.1000, L100.0100, L501.4700 ####[facility] [address] [place], [address] Urea nitrogen [Mass/Vol] 27 mg/dL High 4-19 [facility] Comment on above: Performed By: #### L 501.5200, L500.4050, L501.2300, L501.5101, L3380.1000, L100.0100, L501.4700 ####[facility] [address] [place], [address] L501.5101on 07-18-2024 GGTP 24 IU/L Normal 0-65 [facility] Comment on above: Order Comment: Test( s) 722845-Whuivnqruw (FK506), Bloodwas developed and its performance characteristicsdetermined by [facility]. It has not been cleared or approvedby the Food and Drug Administration. Result Comment: Perf ormed at: - [facility] [id number] [place], [place] [id number] Director: Sergio Machado MD, Phone: [phone] at: [address] [id number] Director: Red Graham PhD, Phone: [phone] Performed By: #### L 501.4700, L100.0100, L501.5101, L3380.1000, L500.4050, L501.2300, L501.5200 ####[facility] [address] [place], [place], [id number] Magnesiumon 07-18-2024 Magnesium [Mass/Vol] 1.8 mg/dL Normal 1.5-2.2 [facility] Comment on above: Performed By: #### L 501.5200, L500.4050, L501.2300, L501.5101, L3380.1000, L100.0100, L501.4700 ####[facility] [address] [place], [place], [address] Phosphoruson 07-18-2024 Phosphate [Mass/Vol] 4.3 mg/dL Normal 2.7-4.5 [facility] Comment on above: Performed By: #### L 501.5200, L500.4050, L501.2300, L501.5101, L3380.1000, L100.0100, L501.4700 ####[facility] [address] [place], [place], [address] Tacrolimus (Prograf)on 07-18 Tacrolimus (Bld) [Mass/Vol] 8.4 ng/mL Normal 5.0-20.0 [facility] Comment on above: Order Comment: Test( s) 146597-Qcwztozytv (FK506), Bloodwas developed and its performance characteristicsdetermined by [facility]. It has not been cleared or approvedby [...] 501.4700, L100.0100, L501.5101, L3380.1000, L500.4050, L501.2300, L501.5200 ####[facility] [address] [place], [address] L3410.9992on 07-15-2024 [facility]. COMMENT Normal . [facility] Comment on above: Order Comment: 83558 4Phosphatidylethanol LAV WB RT Result Comment: Test Ordered: [id number] Phosphatidylethanol (PEth)PHOSPHATIDYLETHANOL Negative MX Reference Range: .Phosphatidylethanol (PEth) Negative ng/mL MX Reference Range: .Analyzed compound: PEth 16:0/18:1. 6-klaloolcm-3-wtwyzs-wg-gocuoky-3-phosphoethanol.Analysis performed by Liquid Chromatography withTandem Mass Spectrometry [...] was developed and its performance characteristicsdetermined by [facility]. It has not been cleared or approvedby the Food and Drug Administration.Performed at: [employer] [address] [id number] Director: Clau Abdalla [facility], Phone: [phone] at: [facility] [address] [id number] Director: Red Graham PhD, Phone: [phone] Performed By: #### L 3380.1000, L501.5101, L501.4700, L501.5200, L100.0100, L501.2300, L3410.9992, L500.4050 ####[facility] [address] [place], [place], [address] Bilirubin, Directon 07-15-19 Bilirubin.direct [Mass/Vol] 0.17 mg/dL Normal 0.00-0.30 [facility] Comment on above: Performed By: #### L 501.4700, L100.0100, L501.5101, L3380.1000, L500.4050, L501.2300, L501.5200 ####[facility] [address] [place], [place], [address] CBC W/Diff, Automatedon 06-30 PLT EST A Normal ADEQ [facility] Comment on above: Performed By: #### L 501.4700, L100.0100, L501.5101, L3380.1000, L500.4050, L501.2300, L501.5200 ####[facility] [address] [place], [address] Comprehensive Metabolic Prof ilon 07-14-2024 Albumin [Mass/Vol] 3.9 g/dL Normal 3.4-4.8 [facility] Comment on above: Performed By: #### L 501.4700, L100.0100, L501.5101, L3380.1000, L500.4050, L501.2300, L501.5200 ####[facility] [address] [place], [place], [address] Albumin/Globulin [Mass ratio] 1.3 {ratio} Normal 0.9-2.4 [facility] Comment on above: Performed By: #### L 501.4700, L100.0100, L501.5101, L3380.1000, L500.4050, L501.2300, L501.5200 ####[facility] [address] [place], [address] ALK PHOS 137 U/L High 40-129 [facility] Comment on above: Performed By: #### L 501.4700, L100.0100, L501.5101, L3380.1000, L500.4050, L501.2300, L501.5200 ####[facility] [address] [place], [address] ALT [Catalytic activity/Vol] 17 U/L Normal <=46 [facility] Comment on above: Performed By: #### L 501.4700, L100.0100, L501.5101, L3380.1000, L500.4050, L501.2300, L501.5200 ####[facility] [address] [place], [address] AST [Catalytic activity/Vol] 22 U/L Normal <=37 [facility] Comment on above: Performed By: #### L 501.4700, L100.0100, L501.5101, L3380.1000, L500.4050, L501.2300, L501.5200 ####[facility] [address] [place], [address] Bilirubin [Mass/Vol] 0.27 mg/dL Normal 0.00-1.30 [facility] Comment on above: Performed By: #### L 501.4700, L100.0100, L501.5101, L3380.1000, L500.4050, L501.2300, L501.5200 ####[facility] [address] [place], [address] BUN/CRE 29.9 RATIO High 10-20 [facility] Comment on above: Performed By: #### L 501.4700, L100.0100, L501.5101, L3380.1000, L500.4050, L501.2300, L501.5200 ####[facility] [address] [place], [address] Calcium [Mass/Vol] 9.4 mg/dL Normal 7.6-11.0 [facility] Comment on above: Performed By: #### L 501.4700, L100.0100, L501.5101, L3380.1000, L500.4050, L501.2300, L501.5200 ####[facility] [address] [place], [address] Chloride [Moles/Vol] 106 mmol/L Normal 98-108 [facility] Comment on above: Performed By: #### L 501.4700, L100.0100, L501.5101, L3380.1000, L500.4050, L501.2300, L501.5200 ####[facility] [address] [place], [address] CO2 [Moles/Vol] 25.3 mmol/L Normal 21.0-32.0 [facility] Comment on above: Performed By: #### L 501.4700, L100.0100, L501.5101, L3380.1000, L500.4050, L501.2300, L501.5200 ####[facility] [address] [place], [address] Creatinine [Mass/Vol] 0.80 mg/dL Normal 0.70-1.20 [facility] Comment on above: Performed By: #### L 501.4700, L100.0100, L501.5101, L3380.1000, L500.4050, L501.2300, L501.5200 ####[facility] [address] [place], [address] GAP 11 Normal 5-15 [facility] Comment on above: Performed By: #### L 501.4700, L100.0100, L501.5101, L3380.1000, L500.4050, L501.2300, L501.5200 ####[facility] [address] [place], [address] GFR/1.73 sq M.predicted among non-blacks MDRD (S/P/Bld) [Vol rate/Area] 101 mL/min/{1.73_m2} Normal >60 [facility] Comment on above: Result Comment: mL/m in/1.73m2 CKD-EPI Creatinine Equation (2020) Performed By: #### L 501.4700, L100.0100, L501.5101, L3380.1000, L500.4050, L501.2300, L501.5200 ####[facility] [address] [place], [address] Globulin (S) [Mass/Vol] 2.9 g/dL Normal 2.2-4.2 [facility] Comment on above: Performed By: #### L 501.4700, L100.0100, L501.5101, L3380.1000, L500.4050, L501.2300, L501.5200 ####[facility] [address] [place], [address] Glucose [Mass/Vol] 82 mg/dL Normal 70-99 [facility] Comment on above: Performed By: #### L 501.4700, L100.0100, L501.5101, L3380.1000, L500.4050, L501.2300, L501.5200 ####[facility] [address] [place], [address] Potassium [Moles/Vol] 4.6 mmol/L Normal 3.3-5.1 [facility] Comment on above: Performed By: #### L 501.4700, L100.0100, L501.5101, L3380.1000, L500.4050, L501.2300, L501.5200 ####[facility] [address] [place], [address] Sodium [Moles/Vol] 143 mmol/L Normal 133-145 [facility] Comment on above: Performed By: #### L 501.4700, L100.0100, L501.5101, L3380.1000, L500.4050, L501.2300, L501.5200 ####[facility] [address] [place], [address] T PROT 6.8 g/dL Normal 5.9-8.4 [facility] Comment on above: Performed By: #### L 501.4700, L100.0100, L501.5101, L3380.1000, L500.4050, L501.2300, L501.5200 ####[facility] [address] [place], [address] Urea nitrogen [Mass/Vol] 24 mg/dL High 4-19 [facility] Comment on above: Performed By: #### L 501.4700, L100.0100, L501.5101, L3380.1000, L500.4050, L501.2300, L501.5200 ####[facility] [address] [place], [address] Magnesiumon 07-14-2024 Magnesium [Mass/Vol] 1.8 mg/dL Normal 1.5-2.2 [facility] Comment on above: Performed By: #### L 501.4700, L100.0100, L501.5101, L3380.1000, L500.4050, L501.2300, L501.5200 ####[facility] [address] [place], [address] Phosphoruson 07-14-2024 Phosphate [Mass/Vol] 4.2 mg/dL Normal 2.7-4.5 [facility] Comment on above: Performed By: #### L 501.4700, L100.0100, L501.5101, L3380.1000, L500.4050, L501.2300, L501.5200 ####[facility] [address] [place], [address] Platelet estimateon 07-15-19 25 Platelets LM Ql (Bld) A ADEQ [facility] L501.5101on 07-13-2024 GGTP 24 IU/L Normal 0-65 [facility] Comment on above: Order Comment: Test( s) 846744-Giicfdlcam (FK506), Bloodwas developed and its performance characteristicsdetermined by [facility]. It has not been cleared or approvedby the Food and Drug Administration. Result Comment: Perf ormed at: [facility] [address] [id number] Director: Sergio Machado MD, Phone: [phone] at: [facility] [address] [id number] Director: Red Graham PhD, Phone: [phone] Performed By: #### L 3380.1000, L501.5101, L501.4700, L501.5200, L100.0100, L501.2300, L3410.9992, L500.4050 ####[facility] [address] [place], [address] Tacrolimus (Prograf)on 07-13 Tacrolimus (Bld) [Mass/Vol] 8.8 ng/mL Normal 5.0-20.0 [facility] Comment on above: Order Comment: Test( s) [id number]-Uozyqlxxrw (FK506), Bloodwas developed and its performance characteristicsdetermined by [facility]. It has not been cleared or approvedby [...] L501.5101, L501.4700, L501.5200, L100.0100, L501.2300, L3410.9992, L500.4050 ####[facility] [address] [place], [place], [address] Bilirubin, Directon 07-12-19 25 Bilirubin.direct [Mass/Vol] 0.17 mg/dL Normal 0.00-0.30 [facility] Comment on above: Performed By: #### L 3380.1000, L501.5101, L501.4700, L501.5200, L100.0100, L501.2300, L3410.9992, L500.4050 ####[facility] [address] [place], [place], [id number] CBC W/Diff, Automatedon 05 Absolute Lymph 1.00 X10 3/uL Normal 0.83-4.51 [facility] Comment on above: Performed By: #### L 3380.1000, L501.5101, L501.4700, L501.5200, L100.0100, L501.2300, L3410.9992, L500.4050 ####[facility] [address] [place], [place], [address](061) Absolute Neut 2.6 X10 3/uL Normal 2.0-7.7 [facility] Comment on above: Performed By: #### L 3380.1000, L501.5101, L501.4700, L501.5200, L100.0100, L501.2300, L3410.9992, L500.4050 ####[facility] [address] [place], [address] Basophils/100 WBC (Bld) 1.5 % High 0-1 [facility] Comment on above: Performed By: #### L 3380.1000, L501.5101, L501.4700, L501.5200, L100.0100, L501.2300, L3410.9992, L500.4050 ####[facility] [address] [place], [address] Eosinophils/100 WBC (Bld) 0.0 % Normal 0-5 [facility] Comment on above: Performed By: #### L 3380.1000, L501.5101, L501.4700, L501.5200, L100.0100, L501.2300, L3410.9992, L500.4050 ####[facility] [address] [place], [address] Erythrocyte distribution width (RBC) [Ratio] 17.6 % High 11.6-14.6 [facility] Comment on above: Performed By: #### L 3380.1000, L501.5101, L501.4700, L501.5200, L100.0100, L501.2300, L3410.9992, L500.4050 ####[facility] [address] [place], [address] Hematocrit (Bld) [Volume fraction] 34.5 % Low 40-54 [facility] Comment on above: Performed By: #### L 3380.1000, L501.5101, L501.4700, L501.5200, L100.0100, L501.2300, L3410.9992, L500.4050 ####[facility] [address] [place], [address] Hemoglobin (Bld) [Mass/Vol] 10.8 g/dL Low 13.0-16.5 [facility] Comment on above: Performed By: #### L 3380.1000, L501.5101, L501.4700, L501.5200, L100.0100, L501.2300, L3410.9992, L500.4050 ####[facility] [address] [facility] [address] [place], [address] IG% 1.500 High 0.0-0.9 [facility] Comment on above: Result Comment: IG% - Immature Granulocytes (promyelocytes, myelocytes andmetamyelocytes) > 1% indicates that a LEFT SHIFT is Present. Performed By: #### L 3380.1000, L501.5101, L501.4700, L501.5200, L100.0100, L501.2300, L3410.9992, L500.4050 ####[facility] [address] [facility] [address] [place], [address] Lymphocytes/100 WBC (Bld) 24.4 % Normal 19-41 [facility] Comment on above: Performed By: #### L 3380.1000, L501.5101, L501.4700, L501.5200, L100.0100, L501.2300, L3410.9992, L500.4050 ####[facility] [address] [facility] [address] [place], [address] MCH (RBC) [Entitic mass] 31.0 pg Normal 27.0-32.0 [facility] Comment on above: Performed By: #### L 3380.1000, L501.5101, L501.4700, L501.5200, L100.0100, L501.2300, L3410.9992, L500.4050 ####[facility] [address] [facility] [address] [place], [address] MCHC (RBC) [Mass/Vol] 31.3 g/dL Low 32-36 [facility] Comment on above: Performed By: #### L 3380.1000, L501.5101, L501.4700, L501.5200, L100.0100, L501.2300, L3410.9992, L500.4050 ####[facility] [address] [place], [address] MCV (RBC) [Entitic vol] 99.1 fL High 80-94 [facility] Comment on above: Performed By: #### L 3380.1000, L501.5101, L501.4700, L501.5200, L100.0100, L501.2300, L3410.9992, L500.4050 ####[facility] [address] [place], [address] Monocytes/100 WBC (Bld) 9.3 % Normal 0-10 [facility] Comment on above: Performed By: #### L 3380.1000, L501.5101, L501.4700, L501.5200, L100.0100, L501.2300, L3410.9992, L500.4050 ####[facility] [address] [place], [address] Neutrophils/100 WBC (Bld) 63.3 % Normal 47-70 [facility] Comment on above: Performed By: #### L 3380.1000, L501.5101, L501.4700, L501.5200, L100.0100, L501.2300, L3410.9992, L500.4050 ####[facility] [address] [place], [address] Nucleated RBC (Bld) [#/Vol] 0 10*3/uL Normal 0-5 [facility] Comment on above: Performed By: #### L 3380.1000, L501.5101, L501.4700, L501.5200, L100.0100, L501.2300, L3410.9992, L500.4050 ####[facility] [address] [place], [address]( Platelet mean volume (Bld) [Entitic vol] 10.0 fL Normal 6.2-12.0 [facility] Comment on above: Performed By: #### L 3380.1000, L501.5101, L501.4700, L501.5200, L100.0100, L501.2300, L3410.9992, L500.4050 ####[facility] [address] [place], [address](378) Platelets (Bld) [#/Vol] 429 10*3/uL Normal 150-450 [facility] Comment on above: Performed By: #### L 3380.1000, L501.5101, L501.4700, L501.5200, L100.0100, L501.2300, L3410.9992, L500.4050 ####[facility] [address] [place], [address](069) RBC (Bld) [#/Vol] 3.48 10*6/uL Low 4.6-6.2 [facility] Comment on above: Performed By: #### L 3380.1000, L501.5101, L501.4700, L501.5200, L100.0100, L501.2300, L3410.9992, L500.4050 ####[facility] [address] [place], [address] RDW SD 64.1 fl High 35.1-43.9 [facility] Comment on above: Performed By: #### L 3380.1000, L501.5101, L501.4700, L501.5200, L100.0100, L501.2300, L3410.9992, L500.4050 ####[facility] [address] [place], [address] WBC (Bld) [#/Vol] 4.1 10*3/uL Low 4.4-11.0 [facility] Comment on above: Performed By: #### L 3380.1000, L501.5101, L501.4700, L501.5200, L100.0100, L501.2300, L3410.9992, L500.4050 ####[facility] [address] [place], [address] Comprehensive Metabolic Prof ilon 07-11-2024 Albumin [Mass/Vol] 3.9 g/dL Normal 3.4-4.8 [facility] Comment on above: Performed By: #### L 3380.1000, L501.5101, L501.4700, L501.5200, L100.0100, L501.2300, L3410.9992, L500.4050 ####[facility] [address] [place], [address] Albumin/Globulin [Mass ratio] 1.5 {ratio} Normal 0.9-2.4 [facility] Comment on above: Performed By: #### L 3380.1000, L501.5101, L501.4700, L501.5200, L100.0100, L501.2300, L3410.9992, L500.4050 ####[facility] [address] [place], [address] ALK PHOS 134 U/L High 40-129 [facility] Comment on above: Performed By: #### L 3380.1000, L501.5101, L501.4700, L501.5200, L100.0100, L501.2300, L3410.9992, L500.4050 ####[facility] [address] [place], [address] ALT [Catalytic activity/Vol] 21 U/L Normal <=46 [facility] Comment on above: Performed By: #### L 3380.1000, L501.5101, L501.4700, L501.5200, L100.0100, L501.2300, L3410.9992, L500.4050 ####[facility] [address] [place], [address] AST [Catalytic activity/Vol] 20 U/L Normal <=37 [facility] Comment on above: Performed By: #### L 3380.1000, L501.5101, L501.4700, L501.5200, L100.0100, L501.2300, L3410.9992, L500.4050 ####[facility] [address] [place], [address] Bilirubin [Mass/Vol] 0.29 mg/dL Normal 0.00-1.30 [facility] Comment on above: Performed By: #### L 3380.1000, L501.5101, L501.4700, L501.5200, L100.0100, L501.2300, L3410.9992, L500.4050 ####[facility] [address] [place], [address] BUN/CRE 26.9 RATIO High 10-20 [facility] Comment on above: Performed By: #### L 3380.1000, L501.5101, L501.4700, L501.5200, L100.0100, L501.2300, L3410.9992, L500.4050 ####[facility] [address] [place], [address] Calcium [Mass/Vol] 9.5 mg/dL Normal 7.6-11.0 [facility] Comment on above: Performed By: #### L 3380.1000, L501.5101, L501.4700, L501.5200, L100.0100, L501.2300, L3410.9992, L500.4050 ####[facility] [address] [place], [place], [phone] Chloride [Moles/Vol] 106 mmol/L Normal 98-108 [facility] Comment on above: Performed By: #### L 3380.1000, L501.5101, L501.4700, L501.5200, L100.0100, L501.2300, L3410.9992, L500.4050 ####[facility] [address] [place], [address] CO2 [Moles/Vol] 25.7 mmol/L Normal 21.0-32.0 [facility] Comment on above: Performed By: #### L 3380.1000, L501.5101, L501.4700, L501.5200, L100.0100, L501.2300, L3410.9992, L500.4050 ####[facility] [address] [place], [address] Creatinine [Mass/Vol] 0.85 mg/dL Normal 0.70-1.20 [facility] Comment on above: Performed By: #### L 3380.1000, L501.5101, L501.4700, L501.5200, L100.0100, L501.2300, L3410.9992, L500.4050 ####[facility] [address] [place], [address] GAP 10 Normal 5-15 [facility] Comment on above: Performed By: #### L 3380.1000, L501.5101, L501.4700, L501.5200, L100.0100, L501.2300, L3410.9992, L500.4050 ####[facility] [address] [place], [address] GFR/1.73 sq M.predicted among non-blacks MDRD (S/P/Bld) [Vol rate/Area] 100 mL/min/{1.73_m2} Normal >60 [facility] Comment on above: Result Comment: mL/m in/1.73m2 CKD-EPI Creatinine Equation (2020) Performed By: #### L 3380.1000, L501.5101, L501.4700, L501.5200, L100.0100, L501.2300, L3410.9992, L500.4050 ####[facility] [address] [place], [address] Globulin (S) [Mass/Vol] 2.7 g/dL Normal 2.2-4.2 [facility] Comment on above: Performed By: #### L 3380.1000, L501.5101, L501.4700, L501.5200, L100.0100, L501.2300, L3410.9992, L500.4050 ####[facility] [address] [place], [address] Glucose [Mass/Vol] 91 mg/dL Normal 70-99 [facility] Comment on above: Performed By: #### L 3380.1000, L501.5101, L501.4700, L501.5200, L100.0100, L501.2300, L3410.9992, L500.4050 ####[facility] [address] [place], [address] Potassium [Moles/Vol] 4.3 mmol/L Normal 3.3-5.1 [facility] Comment on above: Performed By: #### L 3380.1000, L501.5101, L501.4700, L501.5200, L100.0100, L501.2300, L3410.9992, L500.4050 ####[facility] [address] [place], [address] Sodium [Moles/Vol] 141 mmol/L Normal 133-145 [facility] Comment on above: Performed By: #### L 3380.1000, L501.5101, L501.4700, L501.5200, L100.0100, L501.2300, L3410.9992, L500.4050 ####[facility] [address] [place], [address] T PROT 6.6 g/dL Normal 5.9-8.4 [facility] Comment on above: Performed By: #### L 3380.1000, L501.5101, L501.4700, L501.5200, L100.0100, L501.2300, L3410.9992, L500.4050 ####[facility] [address] [place], [address] Urea nitrogen [Mass/Vol] 23 mg/dL High 4-19 [facility] Comment on above: Performed By: #### L 3380.1000, L501.5101, L501.4700, L501.5200, L100.0100, L501.2300, L3410.9992, L500.4050 ####[facility] [address] [place], [address] L501.5101on 07-11-2024 GGTP 31 IU/L Normal 0-65 [facility] Comment on above: Order Comment: Test( s) [id number]-Yubyntrzez (FK506), Bloodwas developed and its performance characteristicsdetermined by [facility]. It has not been cleared or approvedby the Food and Drug Administration. Result Comment: Perf ormed at: [address] [id number] Director: Sergio Machado MD, Phone: [phone] at: [place] [id number], [place] [id number] Director: Red Graham PhD, Phone: [phone] Performed By: #### L 501.5101, L100.0100, L500.4050, L501.4700, L501.2300, L501.5200, L3380.1000 ####[facility] [address] [place], [address] Magnesiumon 07-11-2024 Magnesium [Mass/Vol] 1.7 mg/dL Normal 1.5-2.2 [facility] Comment on above: Performed By: #### L 3380.1000, L501.5101, L501.4700, L501.5200, L100.0100, L501.2300, L3410.9992, L500.4050 ####[facility] [address] [place], [address] Phosphoruson 07-11-2024 Phosphate [Mass/Vol] 3.8 mg/dL Normal 2.7-4.5 [facility] Comment on above: Performed By: #### L 3380.1000, L501.5101, L501.4700, L501.5200, L100.0100, L501.2300, L3410.9992, L500.4050 ####[facility] [address] [place], [place], [address] Tacrolimus (Prograf)on 07-11 Tacrolimus (Bld) [Mass/Vol] 10.3 ng/mL Normal 5.0-20.0 [facility] Comment on above: Order Comment: Test( s) [id number]-Nlxgqbcwnd (FK506), Bloodwas developed and its performance characteristicsdetermined by [facility]. It has not been cleared or approvedby [...] 501.5101, L100.0100, L500.4050, L501.4700, L501.2300, L501.5200, L3380.1000 ####[facility] [address] [place], [address] Bilirubin, Directon 07-08-19 25 Bilirubin.direct [Mass/Vol] 0.20 mg/dL Normal 0.00-0.30 [facility] Comment on above: Performed By: #### L 501.5101, L100.0100, L500.4050, L501.4700, L501.2300, L501.5200, L3380.1000 ####[facility] [address] [place], [place], [id number] CBC W/Diff, Automatedon 05 SMEAR COMMENT Normal [facility] Comment on above: Result Comment: ' Performed By: #### L 501.5101, L100.0100, L500.4050, L501.4700, L501.2300, L501.5200, L3380.1000 ####[facility] [address] [place], [address] Comprehensive Metabolic Prof ilon 2024 Albumin [Mass/Vol] 3.5 g/dL Normal 3.4-4.8 [facility] Comment on above: Performed By: #### L 501.5101, L100.0100, L500.4050, L501.4700, L501.2300, L501.5200, L3380.1000 ####[facility] [address] [place], [place], [address] Albumin/Globulin [Mass ratio] 1.1 {ratio} Normal 0.9-2.4 [facility] Comment on above: Performed By: #### L 501.5101, L100.0100, L500.4050, L501.4700, L501.2300, L501.5200, L3380.1000 ####[facility] [address] [place], [address] ALK PHOS 147 U/L High 40-129 [facility] Comment on above: Performed By: #### L 501.5101, L100.0100, L500.4050, L501.4700, L501.2300, L501.5200, L3380.1000 ####[facility] [address] [place], [address] ALT [Catalytic activity/Vol] 23 U/L Normal <=46 [facility] Comment on above: Performed By: #### L 501.5101, L100.0100, L500.4050, L501.4700, L501.2300, L501.5200, L3380.1000 ####[facility] [address] [place], [address] AST [Catalytic activity/Vol] 22 U/L Normal <=37 [facility] Comment on above: Performed By: #### L 501.5101, L100.0100, L500.4050, L501.4700, L501.2300, L501.5200, L3380.1000 ####[facility] [address] [place], [address] Bilirubin [Mass/Vol] 0.30 mg/dL Normal 0.00-1.30 [facility] Comment on above: Performed By: #### L 501.5101, L100.0100, L500.4050, L501.4700, L501.2300, L501.5200, L3380.1000 ####[facility] [address] [place], [address] BUN/CRE 23.8 RATIO High 10-20 [facility] Comment on above: Performed By: #### L 501.5101, L100.0100, L500.4050, L501.4700, L501.2300, L501.5200, L3380.1000 ####[facility] [address] [place], [address] Calcium [Mass/Vol] 9.2 mg/dL Normal 7.6-11.0 [facility] Comment on above: Performed By: #### L 501.5101, L100.0100, L500.4050, L501.4700, L501.2300, L501.5200, L3380.1000 ####[facility] [address] [place], [address] Chloride [Moles/Vol] 104 mmol/L Normal 98-108 [facility] Comment on above: Performed By: #### L 501.5101, L100.0100, L500.4050, L501.4700, L501.2300, L501.5200, L3380.1000 ####[facility] [address] [place], [address] CO2 [Moles/Vol] 25.4 mmol/L Normal 21.0-32.0 [facility] Comment on above: Performed By: #### L 501.5101, L100.0100, L500.4050, L501.4700, L501.2300, L501.5200, L3380.1000 ####[facility] [address] [place], [address] Creatinine [Mass/Vol] 0.96 mg/dL Normal 0.70-1.20 [facility] Comment on above: Performed By: #### L 501.5101, L100.0100, L500.4050, L501.4700, L501.2300, L501.5200, L3380.1000 ####[facility] [address] [place], [address] GAP 11 Normal 5-15 [facility] Comment on above: Performed By: #### L 501.5101, L100.0100, L500.4050, L501.4700, L501.2300, L501.5200, L3380.1000 ####[facility] [address] [place], [address] GFR/1.73 sq M.predicted among non-blacks MDRD (S/P/Bld) [Vol rate/Area] 90 mL/min/{1.73_m2} Normal >60 [facility] Comment on above: Result Comment: mL/m in/1.73m2 CKD-EPI Creatinine Equation (2020) Performed By: #### L 501.5101, L100.0100, L500.4050, L501.4700, L501.2300, L501.5200, L3380.1000 ####[facility] [address] [place], [address] Globulin (S) [Mass/Vol] 3.3 g/dL Normal 2.2-4.2 [facility] Comment on above: Performed By: #### L 501.5101, L100.0100, L500.4050, L501.4700, L501.2300, L501.5200, L3380.1000 ####[facility] [address] [place], [address] Glucose [Mass/Vol] 85 mg/dL Normal 70-99 [facility] Comment on above: Performed By: #### L 501.5101, L100.0100, L500.4050, L501.4700, L501.2300, L501.5200, L3380.1000 ####[facility] [address] [place], [address] Potassium [Moles/Vol] 4.9 mmol/L Normal 3.3-5.1 [facility] Comment on above: Performed By: #### L 501.5101, L100.0100, L500.4050, L501.4700, L501.2300, L501.5200, L3380.1000 ####[facility] [address] [place], [address] Sodium [Moles/Vol] 140 mmol/L Normal 133-145 [facility] Comment on above: Performed By: #### L 501.5101, L100.0100, L500.4050, L501.4700, L501.2300, L501.5200, L3380.1000 ####[facility] [address] [place], [address] T PROT 6.8 g/dL Normal 5.9-8.4 [facility] Comment on above: Performed By: #### L 501.5101, L100.0100, L500.4050, L501.4700, L501.2300, L501.5200, L3380.1000 ####[facility] [address] [place], [address] Urea nitrogen [Mass/Vol] 23 mg/dL High 4-19 [facility] Comment on above: Performed By: #### L 501.5101, L100.0100, L500.4050, L501.4700, L501.2300, L501.5200, L3380.1000 ####[facility] [address] [place], [address] L501.5101on 2024 GGTP 28 IU/L Normal 0-65 [facility] Comment on above: Order Comment: Test( s) [id number]-Frnsgubwjw (FK506), Bloodwas developed and its performance characteristicsdetermined by [facility]. It has not been cleared or approvedby the Food and Drug Administration. Result Comment: Perf ormed at: - [facility] [id number] Director: Sergio Machado MD, Phone: [phone] at: [facility] [address] [id number] Director: Red Graham PhD, Phone: [phone] Performed By: #### L 100.0100, L501.5200, L501.4700, L501.5101, L3380.1000, L500.4050, L501.2300 ####[facility] [address] [place], [address] Magnesiumon 2024 Magnesium [Mass/Vol] 1.8 mg/dL Normal 1.5-2.2 [facility] Comment on above: Performed By: #### L 501.5101, L100.0100, L500.4050, L501.4700, L501.2300, L501.5200, L3380.1000 ####[facility] [address] [place], [address] Phosphoruson 2024 Phosphate [Mass/Vol] 3.8 mg/dL Normal 2.7-4.5 [facility] Comment on above: Performed By: #### L 501.5101, L100.0100, L500.4050, L501.4700, L501.2300, L501.5200, L3380.1000 ####[facility] [address] [place], [address] Tacrolimus (Prograf)on 07-07 Tacrolimus (Bld) [Mass/Vol] 9.4 ng/mL Normal 5.0-20.0 [facility] Comment on above: Order Comment: Test( s) [id number]-Hgsfhmsosn (FK506), Bloodwas developed and its performance characteristicsdetermined by [facility]. It has not been cleared or approvedby [...] 100.0100, L501.5200, L501.4700, L501.5101, L3380.1000, L500.4050, L501.2300 ####[facility] [address] [place], [place], [id number] Bilirubin, Directon 07-05-19 25 Bilirubin.direct [Mass/Vol] 0.21 mg/dL Normal 0.00-0.30 [facility] Comment on above: Performed By: #### L 100.0100, L501.5200, L501.4700, L501.5101, L3380.1000, L500.4050, L501.2300 ####[facility] [address] [place], [place], [id number] CBC W/Diff, Automatedon PLT EST SLT INC Normal ADEQ [facility] Comment on above: Performed By: #### L 100.0100, L501.5200, L501.4700, L501.5101, L3380.1000, L500.4050, L501.2300 ####[facility] [address] [place], [address] Comprehensive Metabolic Prof ilon 07-04-2024 Albumin [Mass/Vol] 3.9 g/dL Normal 3.5-5.0 [facility] Comment on above: Performed By: #### L 100.0100, L501.5200, L501.4700, L501.5101, L3380.1000, L500.4050, L501.2300 ####[facility] [address] [place], [place], [id number] Albumin/Globulin [Mass ratio] 1.4 {ratio} Normal 0.9-2.4 [facility] Comment on above: Performed By: #### L 100.0100, L501.5200, L501.4700, L501.5101, L3380.1000, L500.4050, L501.2300 ####[facility] [address] [place], [address] ALK PHOS 160 U/L High 40-129 [facility] Comment on above: Performed By: #### L 100.0100, L501.5200, L501.4700, L501.5101, L3380.1000, L500.4050, L501.2300 ####[facility] [address] [place], [address] ALT [Catalytic activity/Vol] 20 U/L Normal <=46 [facility] Comment on above: Performed By: #### L 100.0100, L501.5200, L501.4700, L501.5101, L3380.1000, L500.4050, L501.2300 ####[facility] [address] [place], [address] AST [Catalytic activity/Vol] 24 U/L Normal <=37 [facility] Comment on above: Performed By: #### L 100.0100, L501.5200, L501.4700, L501.5101, L3380.1000, L500.4050, L501.2300 ####[facility] [address] [place], [address] Bilirubin [Mass/Vol] 0.31 mg/dL Normal 0.00-1.30 [facility] Comment on above: Performed By: #### L 100.0100, L501.5200, L501.4700, L501.5101, L3380.1000, L500.4050, L501.2300 ####[facility] [address] [place], [address] BUN/CRE 23.9 RATIO High 10-20 [facility] Comment on above: Performed By: #### L 100.0100, L501.5200, L501.4700, L501.5101, L3380.1000, L500.4050, L501.2300 ####[facility] [address] [place], [address] Calcium [Mass/Vol] 9.4 mg/dL Normal 7.6-11.0 [facility] Comment on above: Performed By: #### L 100.0100, L501.5200, L501.4700, L501.5101, L3380.1000, L500.4050, L501.2300 ####[facility] [address] [place], [address] Chloride [Moles/Vol] 105 mmol/L Normal 98-108 [facility] Comment on above: Performed By: #### L 100.0100, L501.5200, L501.4700, L501.5101, L3380.1000, L500.4050, L501.2300 ####[facility] [address] [place], [address] CO2 [Moles/Vol] 26.4 mmol/L Normal 21.0-32.0 [facility] Comment on above: Performed By: #### L 100.0100, L501.5200, L501.4700, L501.5101, L3380.1000, L500.4050, L501.2300 ####[facility] [address] [place], [address] GAP 8 Normal 5-15 [facility] Comment on above: Performed By: #### L 100.0100, L501.5200, L501.4700, L501.5101, L3380.1000, L500.4050, L501.2300 ####[facility] [address] [place], [address] GFR/1.73 sq M.predicted among non-blacks MDRD (S/P/Bld) [Vol rate/Area] 103 mL/min/{1.73_m2} Normal >60 [facility] Comment on above: Result Comment: mL/m in/1.73m2 CKD-EPI Creatinine Equation (2020) Performed By: #### L 100.0100, L501.5200, L501.4700, L501.5101, L3380.1000, L500.4050, L501.2300 ####[facility] [address] [place], [address] Globulin (S) [Mass/Vol] 2.8 g/dL Normal 2.2-4.2 [facility] Comment on above: Performed By: #### L 100.0100, L501.5200, L501.4700, L501.5101, L3380.1000, L500.4050, L501.2300 ####[facility] [address] [place], [address] Potassium [Moles/Vol] 4.8 mmol/L Normal 3.3-5.1 [facility] Comment on above: Performed By: #### L 100.0100, L501.5200, L501.4700, L501.5101, L3380.1000, L500.4050, L501.2300 ####[facility] [address] [place], [address] Sodium [Moles/Vol] 139 mmol/L Normal 133-145 [facility] Comment on above: Performed By: #### L 100.0100, L501.5200, L501.4700, L501.5101, L3380.1000, L500.4050, L501.2300 ####[facility] [address] [place], [address] T PROT 6.7 g/dL Normal 5.9-8.4 [facility] Comment on above: Performed By: #### L 100.0100, L501.5200, L501.4700, L501.5101, L3380.1000, L500.4050, L501.2300 ####[facility] [address] [place], [address] Creatinine [Mass/Vol] 0.78 mg/dL Normal 0.70-1.20 [facility] Comment on above: Performed By: #### L 100.0100, L501.5200, L501.4700, L501.5101, L3380.1000, L500.4050, L501.2300 ####[facility] [address] [place], [address] Glucose [Mass/Vol] 88 mg/dL Normal 70-99 [facility] Comment on above: Performed By: #### L 100.0100, L501.5200, L501.4700, L501.5101, L3380.1000, L500.4050, L501.2300 ####[facility] [address] [place], [address] Urea nitrogen [Mass/Vol] 19 mg/dL Normal 4-19 [facility] Comment on above: Performed By: #### L 100.0100, L501.5200, L501.4700, L501.5101, L3380.1000, L500.4050, L501.2300 ####[facility] [address] [place], [address] L501.5101on 07-04-2024 GGTP 26 IU/L Normal 0-65 [facility] Comment on above: Order Comment: Test( s) [id number]-Nduuupcwxv (FK506), Bloodwas developed and its performance characteristicsdetermined by [facility]. It has not been cleared or approvedby the Food and Drug Administration. Result Comment: Perf ormed at: - [address] [id number] Director: Sergio Machado MD, Phone: [phone] at: [facility] IdentropySt. Francis Medical CenterRmukhg[address], [place] [id number] Director: Red Graham PhD, Phone: [phone] Performed By: #### L 501.2300, L100.0100, L500.4050, L3380.1000, L501.5200, L501.4700, L501.5101 ####[facility] [address] [place], [address] Magnesiumon 07-04-2024 Magnesium [Mass/Vol] 1.8 mg/dL Normal 1.5-2.2 [facility] Comment on above: Performed By: #### L 100.0100, L501.5200, L501.4700, L501.5101, L3380.1000, L500.4050, L501.2300 ####[facility] [address] [place], [place], [address] Phosphoruson 07-04-2024 Phosphate [Mass/Vol] 3.7 mg/dL Normal 2.7-4.5 [facility] Comment on above: Performed By: #### L 100.0100, L501.5200, L501.4700, L501.5101, L3380.1000, L500.4050, L501.2300 ####[facility] [address] [place], [address] Tacrolimus (Prograf)on 07-04 Tacrolimus (Bld) [Mass/Vol] 6.9 ng/mL Normal 5.0-20.0 [facility] Comment on above: Order Comment: Test( s) [id number]-Qdshsijzrb (FK506), Bloodwas developed and its performance characteristicsdetermined by [facility]. It has not been cleared or approvedby [...] 501.2300, L100.0100, L500.4050, L3380.1000, L501.5200, L501.4700, L501.5101 ####[facility] [address] [facility] [place], [place], [address] Bilirubin, Directon 07-01-19 25 Bilirubin.direct [Mass/Vol] 0.25 mg/dL Normal 0.00-0.30 [facility] Comment on above: Performed By: #### L 501.2300, L100.0100, L500.4050, L3380.1000, L501.5200, L501.4700, L501.5101 ####[facility] [id number] [facility]. [place], [place], [address] Blood basophils/100 leukocyt eson 06-30-2024 Basophils/100 WBC (Bld) 1 % 0-1 [facility] Blood lymphocytes/100 leukoc yteson 06-30-2024 Lymphocytes/100 WBC (Bld) 17 % Low 19-41 [facility] Blood metamyelocytes/100 susy kocyteson 06-30-2024 Metamyelocytes/100 WBC (Bld) 1 % 0-1 [facility] Blood monocytes/100 leukocyt eson 06-30-2024 Monocytes/100 WBC (Bld) 4 % 0-10 [facility] Blood segmented neutrophils/ 100 leukocyteson 06-30-2024 Segmented neutrophils/100 WBC (Bld) 77 % High 47-70 [facility] Comprehensive Metabolic Prof ilon 06-30-2024 Albumin [Mass/Vol] 4.0 g/dL Normal 3.5-5.0 [facility] Comment on above: Performed By: #### L 501.2300, L100.0100, L500.4050, L3380.1000, L501.5200, L501.4700, L501.5101 ####[facility] [address] [place], [address] Albumin/Globulin [Mass ratio] 1.5 {ratio} Normal 0.9-2.4 [facility] Comment on above: Performed By: #### L 501.2300, L100.0100, L500.4050, L3380.1000, L501.5200, L501.4700, L501.5101 ####[facility] [facility] [address] [place], [address] ALK PHOS 168 U/L High 40-129 [facility] Comment on above: Performed By: #### L 501.2300, L100.0100, L500.4050, L3380.1000, L501.5200, L501.4700, L501.5101 ####[facility] [address] [place], [address] ALT [Catalytic activity/Vol] 14 U/L Normal <=46 [facility] Comment on above: Performed By: #### L 501.2300, L100.0100, L500.4050, L3380.1000, L501.5200, L501.4700, L501.5101 ####[facility] [address] [place], [address] AST [Catalytic activity/Vol] 23 U/L Normal <=37 [facility] Comment on above: Performed By: #### L 501.2300, L100.0100, L500.4050, L3380.1000, L501.5200, L501.4700, L501.5101 ####[facility] [address] [place], [address] Bilirubin [Mass/Vol] 0.38 mg/dL Normal 0.00-1.30 [facility] Comment on above: Performed By: #### L 501.2300, L100.0100, L500.4050, L3380.1000, L501.5200, L501.4700, L501.5101 ####[facility] [address] [place], [address] BUN/CRE 30.8 RATIO High 10-20 [facility] Comment on above: Performed By: #### L 501.2300, L100.0100, L500.4050, L3380.1000, L501.5200, L501.4700, L501.5101 ####[facility] [address] [place], [address] Calcium [Mass/Vol] 9.2 mg/dL Normal 7.6-11.0 [facility] Comment on above: Performed By: #### L 501.2300, L100.0100, L500.4050, L3380.1000, L501.5200, L501.4700, L501.5101 ####[facility] [address] [place], [address] Chloride [Moles/Vol] 103 mmol/L Normal 98-108 [facility] Comment on above: Performed By: #### L 501.2300, L100.0100, L500.4050, L3380.1000, L501.5200, L501.4700, L501.5101 ####[facility] [address] [place], [address] CO2 [Moles/Vol] 24.3 mmol/L Normal 21.0-32.0 [facility] Comment on above: Performed By: #### L 501.2300, L100.0100, L500.4050, L3380.1000, L501.5200, L501.4700, L501.5101 ####[facility] [address] [place], [address] Creatinine [Mass/Vol] 0.72 mg/dL Normal 0.70-1.20 [facility] Comment on above: Performed By: #### L 501.2300, L100.0100, L500.4050, L3380.1000, L501.5200, L501.4700, L501.5101 ####[facility] [address] [place], [address] GAP 12 Normal 5-15 [facility] Comment on above: Performed By: #### L 501.2300, L100.0100, L500.4050, L3380.1000, L501.5200, L501.4700, L501.5101 ####[facility] [address] [place], [address] GFR/1.73 sq M.predicted among non-blacks MDRD (S/P/Bld) [Vol rate/Area] 105 mL/min/{1.73_m2} Normal >60 [facility] Comment on above: Result Comment: mL/m in/1.73m2 CKD-EPI Creatinine Equation (2020) Performed By: #### L 501.2300, L100.0100, L500.4050, L3380.1000, L501.5200, L501.4700, L501.5101 ####[facility] [address] [place], [address] Globulin (S) [Mass/Vol] 2.7 g/dL Normal 2.2-4.2 [facility] Comment on above: Performed By: #### L 501.2300, L100.0100, L500.4050, L3380.1000, L501.5200, L501.4700, L501.5101 ####[facility] [address] [place], [address] Glucose [Mass/Vol] 91 mg/dL Normal 70-99 [facility] Comment on above: Performed By: #### L 501.2300, L100.0100, L500.4050, L3380.1000, L501.5200, L501.4700, L501.5101 ####[facility] [address] [place], [address] Potassium [Moles/Vol] 4.5 mmol/L Normal 3.3-5.1 [facility] Comment on above: Performed By: #### L 501.2300, L100.0100, L500.4050, L3380.1000, L501.5200, L501.4700, L501.5101 ####[facility] [address] [place], [address] Sodium [Moles/Vol] 139 mmol/L Normal 133-145 [facility] Comment on above: Performed By: #### L 501.2300, L100.0100, L500.4050, L3380.1000, L501.5200, L501.4700, L501.5101 ####[facility] [address] [place], [address] T PROT 6.6 g/dL Normal 5.9-8.4 [facility] Comment on above: Performed By: #### L 501.2300, L100.0100, L500.4050, L3380.1000, L501.5200, L501.4700, L501.5101 ####[facility] [address] [place], [address] Urea nitrogen [Mass/Vol] 22 mg/dL High 4-19 [facility] Comment on above: Performed By: #### L 501.2300, L100.0100, L500.4050, L3380.1000, L501.5200, L501.4700, L501.5101 ####[facility] [address] [place], [address] Erythrocyte morphology asses smenton 06-30-2024 RBC morphology finding Nom (Bld) N CHROM NORMAL NORM C&C [facility] Laboratory - Hematology and Cell countson 06-30-2024 Anisocytosis Ql (Bld) 1+ [facility] Magnesiumon 06-30-2024 Magnesium [Mass/Vol] 1.9 mg/dL Normal 1.5-2.2 [facility] Comment on above: Performed By: #### L 501.2300, L100.0100, L500.4050, L3380.1000, L501.5200, L501.4700, L501.5101 ####[facility] [address] [place], [place], [address] Phosphoruson 06-30-2024 Phosphate [Mass/Vol] 4.0 mg/dL Normal 2.7-4.5 [facility] Comment on above: Performed By: #### L 501.2300, L100.0100, L500.4050, L3380.1000, L501.5200, L501.4700, L501.5101 ####[facility] [address] [place], [place], [address] Review by pathologiston 05 Pathologist review Deandre (Unsp spec) [Interp] Reviewed [facility] Comment on above: Previous reported re sult: Patricia delgado Edited by: SAMIR on 07/21/24:1543SEE REPORT IN PATIENT'S EMR AMENDED REPORT 07/21/24 1543 PATH REV previously reported as: Patricia delgado Total cell counton 5 Cells counted Molgen (Bld/Tiss) [#] 100 MANUAL DIFF [facility] L501.5101on 06-29-2024 GGTP 28 IU/L Normal 0-65 [facility] Comment on above: Order Comment: Test( s) 440593-Uniyhmstep (FK506), Bloodwas developed and its performance characteristicsdetermined by [facility]. It has not been cleared or approvedby the Food and Drug Administration. Result Comment: Perf ormed at: [facility] [address] [id number] Director: Sergio Machado MD, Phone: [phone] at: [address] [id number] Director: Red Graham PhD, Phone: [phone] Performed By: #### L 100.0100, L501.5101, L501.5200, L3380.1000, L501.4700, L501.2300, L500.4050 ####[facility] [address] [place], [address] Tacrolimus (Prograf)on 06-29 Tacrolimus (Bld) [Mass/Vol] 5.6 ng/mL Normal 5.0-20.0 [facility] Comment on above: Order Comment: Test( s) 234731-Fmnmwaisnd (FK506), Bloodwas developed and its performance characteristicsdetermined by [facility]. It has not been cleared or approvedby [...] 100.0100, L501.5101, L501.5200, L3380.1000, L501.4700, L501.2300, L500.4050 ####[facility] [address] [place], [address] Absolute lymphocyte counton 06-27-2024 Lymphocytes Auto (Unsp spec) [#/Vol] 0.86 10*3/uL 0.83-4.51 [facility] Absolute neutrophil counton 06-27-2024 Neutrophils (Bld) [#/Vol] 5.1 10*3/uL 2.0-7.7 [facility] Anion gap in Serum or Plasma on 06-27-2024 Anion gap [Moles/Vol] 10 mmol/L 5-15 [facility] BUN/creatinine ratioon 06-27 Urea nitrogen/Creatinine [Mass ratio] 32.0 mg/mg High 10-20 [facility] Bilirubin directon 5 Bilirubin.direct [Mass/Vol] 0.27 mg/dL 0.00-0.30 [facility] Bilirubin, Directon 06-28-19 25 Bilirubin.direct [Mass/Vol] 0.27 mg/dL Normal 0.00-0.30 [facility] Comment on above: Performed By: #### L 100.0100, L501.5101, L501.5200, L3380.1000, L501.4700, L501.2300, L500.4050 ####[facility] [address] [place], [address] Bilirubin, totalon 5 Bilirubin [Mass/Vol] 0.39 mg/dL 0.00-1.30 [facility] Blood band neutrophil count as percentage of total leukocyteson 06-27-2024 Band form neutrophils/100 WBC (Bld) 1 % 0-5 [facility] Blood eosinophils/100 leukoc yteson 06-27-2024 Eosinophils/100 WBC (Bld) 1 % 0-5 [facility] Blood lymphocytes/100 leukoc yton 06-27-2024 Lymphocytes/100 WBC (Bld) 13 % Low 19-41 [facility] Blood monocytes/100 leukocyt eson 06-27-2024 Monocytes/100 WBC (Bld) 9 % 0-10 [facility] Blood segmented neutrophils/ 100 leukocyteson 06-27-2024 Segmented neutrophils/100 WBC (Bld) 76 % High 47-70 [facility] CBC W/Diff, Automatedon 06-01 Absolute Lymph 0.86 X10 3/uL Normal 0.83-4.51 [facility] Comment on above: Performed By: #### L 100.0100, L501.5101, L501.5200, L3380.1000, L501.4700, L501.2300, L500.4050 ####[facility] [address] [place], [address] Absolute Neut 5.1 X10 3/uL Normal 2.0-7.7 [facility] Comment on above: Performed By: #### L 100.0100, L501.5101, L501.5200, L3380.1000, L501.4700, L501.2300, L500.4050 ####[facility] [address] [place], [address] BAND 1 Normal 0-5 [facility] Comment on above: Performed By: #### L 100.0100, L501.5101, L501.5200, L3380.1000, L501.4700, L501.2300, L500.4050 ####[facility] [address] [place], [address] Eosinophils/100 WBC (Bld) 1 % Normal 0-5 [facility] Comment on above: Performed By: #### L 100.0100, L501.5101, L501.5200, L3380.1000, L501.4700, L501.2300, L500.4050 ####[facility] [address] [place], [address] Lymphocytes (Bld) [#/Vol] 13 10*3/uL Low 19-41 [facility] Comment on above: Performed By: #### L 100.0100, L501.5101, L501.5200, L3380.1000, L501.4700, L501.2300, L500.4050 ####[facility] [address] [place], [address] MONOCYTE 9 Normal 0-10 [facility] Comment on above: Performed By: #### L 100.0100, L501.5101, L501.5200, L3380.1000, L501.4700, L501.2300, L500.4050 ####[facility] [address] [place], [address] PLT EST ADEQUATE Normal ADEQ [facility] Comment on above: Performed By: #### L 100.0100, L501.5101, L501.5200, L3380.1000, L501.4700, L501.2300, L500.4050 ####[facility] [address] [place], [address] RED CELL MORPH NORM C+C Normal NORM C C [facility] Comment on above: Performed By: #### L 100.0100, L501.5101, L501.5200, L3380.1000, L501.4700, L501.2300, L500.4050 ####[facility] [address] [place], [address] SEGS 76 High 47-70 [facility] Comment on above: Performed By: #### L 100.0100, L501.5101, L501.5200, L3380.1000, L501.4700, L501.2300, L500.4050 ####[facility] [address] [place], [address] TOTAL CELLS 100 Normal MANUAL DIFF [facility] Comment on above: Performed By: #### L 100.0100, L501.5101, L501.5200, L3380.1000, L501.4700, L501.2300, L500.4050 ####[facility] [address] [place], [address] Carbon dioxide, total [Moles /volume] in Central venous bloodon 06-27-2024 CO2 [Moles/Vol] 26.7 mmol/L 21.0-32.0 [facility] Chloride assayon 06-27-2024 Chloride [Moles/Vol] 103 mmol/L 98-108 [facility] Comprehensive Metabolic Prof ilon 06-27-2024 Albumin [Mass/Vol] 3.8 g/dL Normal 3.5-5.0 [facility] Comment on above: Performed By: #### L 100.0100, L501.5101, L501.5200, L3380.1000, L501.4700, L501.2300, L500.4050 ####[facility] [address] [place], [address] Albumin/Globulin [Mass ratio] 1.3 {ratio} Normal 0.9-2.4 [facility] Comment on above: Performed By: #### L 100.0100, L501.5101, L501.5200, L3380.1000, L501.4700, L501.2300, L500.4050 ####[facility] [address] [place], [address] ALK PHOS 188 U/L High 40-129 [facility] Comment on above: Performed By: #### L 100.0100, L501.5101, L501.5200, L3380.1000, L501.4700, L501.2300, L500.4050 ####[facility] [address] [place], [address] ALT [Catalytic activity/Vol] 20 U/L Normal <=46 [facility] Comment on above: Performed By: #### L 100.0100, L501.5101, L501.5200, L3380.1000, L501.4700, L501.2300, L500.4050 ####[facility] [address] [place], [address] AST [Catalytic activity/Vol] 20 U/L Normal <=37 [facility] Comment on above: Performed By: #### L 100.0100, L501.5101, L501.5200, L3380.1000, L501.4700, L501.2300, L500.4050 ####[facility] [address] [place], [address] Bilirubin [Mass/Vol] 0.39 mg/dL Normal 0.00-1.30 [facility] Comment on above: Performed By: #### L 100.0100, L501.5101, L501.5200, L3380.1000, L501.4700, L501.2300, L500.4050 ####[facility] [address] [place], [address] BUN/CRE 32.0 RATIO High 10-20 [facility] Comment on above: Performed By: #### L 100.0100, L501.5101, L501.5200, L3380.1000, L501.4700, L501.2300, L500.4050 ####[facility] [address] [place], [address] Calcium [Mass/Vol] 9.5 mg/dL Normal 7.6-11.0 [facility] Comment on above: Performed By: #### L 100.0100, L501.5101, L501.5200, L3380.1000, L501.4700, L501.2300, L500.4050 ####[facility] [address] [place], [address] Chloride [Moles/Vol] 103 mmol/L Normal 98-108 [facility] Comment on above: Performed By: #### L 100.0100, L501.5101, L501.5200, L3380.1000, L501.4700, L501.2300, L500.4050 ####[facility] [address] [place], [address] CO2 [Moles/Vol] 26.7 mmol/L Normal 21.0-32.0 [facility] Comment on above: Performed By: #### L 100.0100, L501.5101, L501.5200, L3380.1000, L501.4700, L501.2300, L500.4050 ####[facility] [address] [place], [address] Creatinine [Mass/Vol] 0.72 mg/dL Normal 0.70-1.20 [facility] Comment on above: Performed By: #### L 100.0100, L501.5101, L501.5200, L3380.1000, L501.4700, L501.2300, L500.4050 ####[facility] [address] [place], [address] GAP 10 Normal 5-15 [facility] Comment on above: Performed By: #### L 100.0100, L501.5101, L501.5200, L3380.1000, L501.4700, L501.2300, L500.4050 ####[facility] [address] [place], [place], [address]) GFR/1.73 sq M.predicted among non-blacks MDRD (S/P/Bld) [Vol rate/Area] 105 mL/min/{1.73_m2} Normal >60 [facility] Comment on above: Result Comment: mL/m in/1.73m2 CKD-EPI Creatinine Equation (2020) Performed By: #### L 100.0100, L501.5101, L501.5200, L3380.1000, L501.4700, L501.2300, L500.4050 ####[facility] [address] [place], [address] Globulin (S) [Mass/Vol] 2.9 g/dL Normal 2.2-4.2 [facility] Comment on above: Performed By: #### L 100.0100, L501.5101, L501.5200, L3380.1000, L501.4700, L501.2300, L500.4050 ####[facility] [address] [place], [address] Glucose [Mass/Vol] 100 mg/dL High 70-99 [facility] Comment on above: Performed By: #### L 100.0100, L501.5101, L501.5200, L3380.1000, L501.4700, L501.2300, L500.4050 ####[facility] [address] [place], [address] Potassium [Moles/Vol] 4.5 mmol/L Normal 3.3-5.1 [facility] Comment on above: Performed By: #### L 100.0100, L501.5101, L501.5200, L3380.1000, L501.4700, L501.2300, L500.4050 ####[facility] [address] [place], [address] Sodium [Moles/Vol] 140 mmol/L Normal 133-145 [facility] Comment on above: Performed By: #### L 100.0100, L501.5101, L501.5200, L3380.1000, L501.4700, L501.2300, L500.4050 ####[facility] [address] [place], [address] T PROT 6.7 g/dL Normal 5.9-8.4 [facility] Comment on above: Performed By: #### L 100.0100, L501.5101, L501.5200, L3380.1000, L501.4700, L501.2300, L500.4050 ####[facility] [address] [place], [address] Urea nitrogen [Mass/Vol] 23 mg/dL High 4-19 [facility] Comment on above: Performed By: #### L 100.0100, L501.5101, L501.5200, L3380.1000, L501.4700, L501.2300, L500.4050 ####[facility] [address] [place], [address] Erythrocyte distribution wid th ratioon 06-27-2024 Erythrocyte distribution width (RBC) [Ratio] 17.2 % High 11.6-14.6 [facility] Erythrocyte distribution wid th standard deviationon 06-27-2024 Erythrocyte distribution width (RBC) [Ratio] 60.9 fl High 35.1-43.9 [facility] Erythrocyte morphology asses smenton 06-27-2024 RBC morphology finding Nom (Bld) NORM C+C NORMAL NORM C&C [facility] Gamma glutamyl transferase ( GGT) measurementon 06-27-2024 Amylase [Catalytic activity/Vol] 28 U/L 0-65 [facility] Comment on above: Performed at: [employer] [facility] [employer] [address] [id number] Director: Sergio Machado MD, Phone: [phone] at: [employer] [facility] [id number] Director: Red Graham PhD, Phone: [phone] Glomerular filtration rate ( GFR) estimation/1.73 sq m using serum, plasma, or whole bon 06-27-2024 GFR/1.73 sq M.predicted among non-blacks MDRD (S/P/Bld) [Vol rate/Area] 105 mL/min/{1.73_m2} >60 [facility] Comment on above: mL/min/1.73m2 CKD-EP I Creatinine Equation (2020) HIV Viral Load Quanton 06-27 HIV-1 RNA, PCR < 20 Normal . [facility] Comment on above: Result Comment: HIV- 1 RNA not detectedThe reportable range for this assay is 20 to 10,000,000copies HIV-1 RNA/mL. Performed By: #### L 3890.6102, L7000.7000, L501.5200, L501.4700, L100.0100, L501.2300, L3890.4000, L3410.9992, L500.4050 ####[facility] [address] [place], [address] log10 HIV-1 RNA TNP Normal . [facility] Comment on above: Result Comment: Resu lt Units: mfz05gyhb/mLUnable to calculate result since non-numeric resultobtained for component test.Performed at: [address] [id number] Director: Sergio Machado MD, Phone: [phone] Performed By: #### L 3890.6102, L7000.7000, L501.5200, L501.4700, L100.0100, L501.2300, L3890.4000, L3410.9992, L500.4050 ####[facility] [address] [place], [address] Hematocrit Auto (Bld) [Volum e fraction]on 06-27-2024 Hematocrit (Bld) [Volume fraction] 35.0 % Low 40-54 [facility] Hemoglobin measurementon Hemoglobin (Bld) [Mass/Vol] 11.2 g/dL Low 13.0-16.5 [facility] Laboratory - Chemistry and C hemistry - challengeon 06-27-2024 AST [Catalytic activity/Vol] 20 U/L <38 [facility] MCV (mean corpuscular volume ) determinationon 06-27-2024 MCV (RBC) [Entitic vol] 97.0 fL High 80-94 [facility] Magnesiumon 06-27-2024 Magnesium [Mass/Vol] 1.8 mg/dL Normal 1.5-2.2 [facility] Comment on above: Performed By: #### L 100.0100, L501.5101, L501.5200, L3380.1000, L501.4700, L501.2300, L500.4050 ####[facility] [address] [place], [address] Magnesium measurement (mass/ volume)on 06-27-2024 Magnesium (Unsp spec) [Mass/Vol] 1.8 mg/dL 1.5-2.2 [facility] Mean corpuscular hemoglobin (MCH) determinationon 06-27-2024 MCH (RBC) [Entitic mass] 31.0 pg 27.0-32.0 [facility] Mean corpuscular hemoglobin concentration (MCHC) determinationon 06-27-2024 MCHC (RBC) [Mass/Vol] 32.0 g/dL 32-36 [facility] Mean platelet volume determi nationon 06-27-2024 Platelet mean volume (Bld) [Entitic vol] 10.0 fL 6.2-12.0 [facility] Phosphoruson 06-27-2024 Phosphate [Mass/Vol] 3.3 mg/dL Normal 2.7-4.5 [facility] Comment on above: Performed By: #### L 100.0100, L501.5101, L501.5200, L3380.1000, L501.4700, L501.2300, L500.4050 ####[facility] [address] [place] [place], [address] Platelet counton 06-27-2024 Platelets (Bld) [#/Vol] 449 10*3/uL 150-450 [facility] Platelet estimateon 06-28-19 25 Platelets LM Ql (Bld) ADEQUATE ADEQ [facility] Potassium measurement (mass/ volume)on 06-27-2024 Potassium (Unsp spec) [Mass/Vol] 4.5 mmol/L 3.3-5.1 [facility] RBC Auto (Bld) [#/Vol]on RBC (Bld) [#/Vol] 3.61 10*6/uL Low 4.6-6.2 [facility] Serum creatinine measurement (mass/volume)on 06-27-2024 Creatinine [Mass/Vol] 0.72 mg/dL 0.70-1.20 [facility] Serum globulin measurementon 06-27-2024 Globulin (S) [Mass/Vol] 2.9 g/dL 2.2-4.2 [facility] Serum glucose measurement (m ass/volume)on 06-27-2024 Glucose [Mass/Vol] 100 mg/dL High 70-99 [facility] Serum or plasma alanine craig otransferase (ALT) measurementon 06-27-2024 ALT [Catalytic activity/Vol] 20 U/L <47 [facility] Serum or plasma albumin megha urement (mass/volume)on 06-27-2024 Albumin [Mass/Vol] 3.8 g/dL 3.5-5.0 [facility] Serum or plasma albumin/glob ulin mass ratioon 06-27-2024 Albumin/Globulin [Mass ratio] 1.3 {ratio} 0.9-2.4 [facility] Serum or plasma alkaline sal sphatase measurementon 06-27-2024 ALP [Catalytic activity/Vol] 188 U/L High 40-129 [facility] Serum or plasma calcium megha urement (mass/volume)on 06-27-2024 Calcium [Mass/Vol] 9.5 mg/dL 7.6-11.0 [facility] Serum or plasma urea nitroge n measurement (mass/volume)on 06-27-2024 Urea nitrogen [Mass/Vol] 23 mg/dL High 4-19 [facility] Sodium levelon 06-27-2024 Sodium [Moles/Vol] 140 mmol/L 133-145 [facility] Total cell counton Cells counted Molgen (Bld/Tiss) [#] 100 MANUAL DIFF [facility] Total proteinon 06-27-2024 Protein [Mass/Vol] 6.7 g/dL 5.9-8.4 [facility] White blood cell (WBC) count on 06-27-2024 WBC (Bld) [#/Vol] 6.6 10*3/uL 4.4-11.0 [facility] 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 [facility] Comment on above: Performed By: #### L 3890.6102, L7000.7000, L501.5200, L501.4700, L100.0100, L501.2300, L3890.4000, L3410.9992, L500.4050 ####[facility] [address] [place], [place], [address] HCV QT RNA PCR Not detected Normal . [facility] Comment on above: Performed By: #### L 3890.6102, L7000.7000, L501.5200, L501.4700, L100.0100, L501.2300, L3890.4000, L3410.9992, L500.4050 ####[facility] [address] [place], [place], [address] TEST INFO: Comment Normal . [facility] Comment on above: Result Comment: The quantitative range of this assay is 15 IU/mL to 100million IU/mL.Performed at: [address] [id number] Director: Sergio Machdao MD, Phone: [phone] Performed By: #### L 3890.6102, L7000.7000, L501.5200, L501.4700, L100.0100, L501.2300, L3890.4000, L3410.9992, L500.4050 ####[facility] [address] [place], [place], [phone] CBC W/Diff, Automatedon - PATH REV Reviewed Normal [facility] Comment on above: Result Comment: ADEQ UATE LEUKOCYTES WITH OCCASIONAL IMMATURE GRANULOCYTES.MACROCYTIC NORMOCHROMIC ANEMIA WITH MILD ANISOCYTOSIS.ADEQUATE PLATELETS.Eulalia Bautista MD 06/24/2024 AMENDED REPORT 06/24/24 1431 PATH REV previously reported as: June Performed By: #### L 3890.6102, L7000.7000, L501.5200, L501.4700, L100.0100, L501.2300, L3890.4000, L3410.9992, L500.4050 ####[facility] [address] [place], [place], [address] Bilirubin, Directon 06-24-19 25 Bilirubin.direct [Mass/Vol] 0.33 mg/dL High 0.00-0.30 [facility] Comment on above: Performed By: #### L 3890.6102, L7000.7000, L501.5200, L501.4700, L100.0100, L501.2300, L3890.4000, L3410.9992, L500.4050 ####[facility] [address] [place], [address] Blood basophils/100 leukocyt eson 06-23-2024 Basophils/100 WBC (Bld) 1 % 0-1 [facility] Blood promyelocytes/100 leuk ocyteson 06-23-2024 Promyelocytes/100 WBC (Bld) 1 % High 0-0 [facility] Comprehensive Metabolic Prof ilon 06-23-2024 Albumin [Mass/Vol] 3.6 g/dL Normal 3.5-5.0 [facility] Comment on above: Performed By: #### L 3890.6102, L7000.7000, L501.5200, L501.4700, L100.0100, L501.2300, L3890.4000, L3410.9992, L500.4050 ####[facility] [address] [place], [place], [phone](791) Albumin/Globulin [Mass ratio] 1.3 {ratio} Normal 0.9-2.4 [facility] Comment on above: Performed By: #### L 3890.6102, L7000.7000, L501.5200, L501.4700, L100.0100, L501.2300, L3890.4000, L3410.9992, L500.4050 ####[facility] [address] [place], [address] ALK PHOS 190 U/L High 40-129 [facility] Comment on above: Performed By: #### L 3890.6102, L7000.7000, L501.5200, L501.4700, L100.0100, L501.2300, L3890.4000, L3410.9992, L500.4050 ####[facility] [address] [place], [address](836) ALT [Catalytic activity/Vol] 20 U/L Normal <=46 [facility] Comment on above: Performed By: #### L 3890.6102, L7000.7000, L501.5200, L501.4700, L100.0100, L501.2300, L3890.4000, L3410.9992, L500.4050 ####[facility] [address] [place], [place], [phone](218) AST [Catalytic activity/Vol] 21 U/L Normal <=37 [facility] Comment on above: Performed By: #### L 3890.6102, L7000.7000, L501.5200, L501.4700, L100.0100, L501.2300, L3890.4000, L3410.9992, L500.4050 ####[facility] [address] [place], [place], [phone] Bilirubin [Mass/Vol] 0.51 mg/dL Normal 0.00-1.30 [facility] Comment on above: Performed By: #### L 3890.6102, L7000.7000, L501.5200, L501.4700, L100.0100, L501.2300, L3890.4000, L3410.9992, L500.4050 ####[facility] [address] [place], [place], [phone] BUN/CRE 25.6 RATIO High 10-20 [facility] Comment on above: Performed By: #### L 3890.6102, L7000.7000, L501.5200, L501.4700, L100.0100, L501.2300, L3890.4000, L3410.9992, L500.4050 ####[facility] [address] [place], [place], [phone]) Calcium [Mass/Vol] 9.2 mg/dL Normal 7.6-11.0 [facility] Comment on above: Performed By: #### L 3890.6102, L7000.7000, L501.5200, L501.4700, L100.0100, L501.2300, L3890.4000, L3410.9992, L500.4050 ####[facility] [address] [place], [place], [phone](692) Chloride [Moles/Vol] 101 mmol/L Normal 98-108 [facility] Comment on above: Performed By: #### L 3890.6102, L7000.7000, L501.5200, L501.4700, L100.0100, L501.2300, L3890.4000, L3410.9992, L500.4050 ####[facility] [address] [place], [place], [phone] CO2 [Moles/Vol] 23.5 mmol/L Normal 21.0-32.0 [facility] Comment on above: Performed By: #### L 3890.6102, L7000.7000, L501.5200, L501.4700, L100.0100, L501.2300, L3890.4000, L3410.9992, L500.4050 ####[facility] [address] [place], [place], [phone] Creatinine [Mass/Vol] 0.89 mg/dL Normal 0.70-1.20 [facility] Comment on above: Performed By: #### L 3890.6102, L7000.7000, L501.5200, L501.4700, L100.0100, L501.2300, L3890.4000, L3410.9992, L500.4050 ####[facility] [address] [place], [address] GAP 12 Normal 5-15 [facility] Comment on above: Performed By: #### L 3890.6102, L7000.7000, L501.5200, L501.4700, L100.0100, L501.2300, L3890.4000, L3410.9992, L500.4050 ####[facility] [address] [place], [place], [phone](998) GFR/1.73 sq M.predicted among non-blacks MDRD (S/P/Bld) [Vol rate/Area] 99 mL/min/{1.73_m2} Normal >60 [facility] Comment on above: Result Comment: mL/m in/1.73m2 CKD-EPI Creatinine Equation (2020) Performed By: #### L 3890.6102, L7000.7000, L501.5200, L501.4700, L100.0100, L501.2300, L3890.4000, L3410.9992, L500.4050 ####[facility] [address] [place], [place], [phone](449) Globulin (S) [Mass/Vol] 2.8 g/dL Normal 2.2-4.2 [facility] Comment on above: Performed By: #### L 3890.6102, L7000.7000, L501.5200, L501.4700, L100.0100, L501.2300, L3890.4000, L3410.9992, L500.4050 ####[facility] [address] [place], [place], [phone](034) Glucose [Mass/Vol] 111 mg/dL High 70-99 [facility] Comment on above: Performed By: #### L 3890.6102, L7000.7000, L501.5200, L501.4700, L100.0100, L501.2300, L3890.4000, L3410.9992, L500.4050 ####[facility] [address] [place], [place], [phone](776) Potassium [Moles/Vol] 4.4 mmol/L Normal 3.3-5.1 [facility] Comment on above: Performed By: #### L 3890.6102, L7000.7000, L501.5200, L501.4700, L100.0100, L501.2300, L3890.4000, L3410.9992, L500.4050 ####[facility] [address] [place], [address] Sodium [Moles/Vol] 137 mmol/L Normal 133-145 [facility] Comment on above: Performed By: #### L 3890.6102, L7000.7000, L501.5200, L501.4700, L100.0100, L501.2300, L3890.4000, L3410.9992, L500.4050 ####[facility] [address] [place], [place], [phone] T PROT 6.4 g/dL Normal 5.9-8.4 [facility] Comment on above: Performed By: #### L 3890.6102, L7000.7000, L501.5200, L501.4700, L100.0100, L501.2300, L3890.4000, L3410.9992, L500.4050 ####[facility] [address] [place], [place], [phone] Urea nitrogen [Mass/Vol] 23 mg/dL High 4-19 [facility] Comment on above: Performed By: #### L 3890.6102, L7000.7000, L501.5200, L501.4700, L100.0100, L501.2300, L3890.4000, L3410.9992, L500.4050 ####[facility] [address] [place], [address] L3890.6102on 06-23-2024 HEP B Surf Ag Non-Reactive Normal Nonreactive [facility] Comment on above: Result Comment: Reac tive: Presumptive evidence of HBV. Repeatedly reactivesamples must be confirmed using a neutralization test([employer] HBsAg Confirmatory Test)Non-Reactive: HBsAg not detected; does not exclude thepossibility of exposure to HBV Performed By: #### L 3890.6102, L7000.7000, L501.5200, L501.4700, L100.0100, L501.2300, L3890.4000, L3410.9992, L500.4050 ####[facility] [address] [place], [place], [phone] Laboratory - Microbiology an d Antimicrobial susceptibilityon 06-23-2024 HBV surface Ag Ql (S) Non-Reactive Nonreactive [facility] Comment on above: Reactive: Presumptiv e evidence of HBV. Repeatedly reactive samples must be confirmed using a neutralization test ([employer] HBsAg Confirmatory Test)Non-Reactive: HBsAg not detected; does not exclude the possibility of exposure to HBV Magnesiumon 06-23-2024 Magnesium [Mass/Vol] 1.9 mg/dL Normal 1.5-2.2 [facility] Comment on above: Performed By: #### L 3890.6102, L7000.7000, L501.5200, L501.4700, L100.0100, L501.2300, L3890.4000, L3410.9992, L500.4050 ####[facility] [address] [facility] [place], [place], [phone] Myelocyte %on 06-23-2024 Myelocytes/100 WBC (Bld) 1 % High 0-0 [facility] No Panel Informationon 06-23 Addendum Document Comment . [facility] Comment on above: The quantitative ran ge of this assay is 15 IU/mL to 100million IU/mL.Performed at: [address] [id number] Director: Sergio Machado MD, Phone: [phone] Phosphoruson 06-23-2024 Phosphate [Mass/Vol] 3.4 mg/dL Normal 2.7-4.5 [facility] Comment on above: Performed By: #### L 3890.6102, L7000.7000, L501.5200, L501.4700, L100.0100, L501.2300, L3890.4000, L3410.9992, L500.4050 ####[facility] [address] [place], [address] Plasma HIV 1 RNA viral load by probe and target amplification method (log number/voluon 06-23-2024 HIV 1 RNA JACKY+probe [Log #/Vol] TNP [facility] Comment on above: Test not performedRe sult Units: [id number]/mLUnable to calculate result since non-numeric resultobtained for component test.Performed at: [address] [id number] Director: Sergio Machado MD, Phone: [phone] Review by pathologiston 06-01 Pathologist review Deandre (Unsp spec) [Interp] Reviewed [facility] Comment on above: Previous reported re sult: Patricia delgado Edited by: SAMIR on 06/24/24:1431ADEQUATE LEUKOCYTES WITH OCCASIONAL IMMATURE GRANULOCYTES.MACROCYTIC NORMOCHROMIC ANEMIA WITH MILD ANISOCYTOSIS.ADEQUATE PLATELETS.Eulalia Bautista MD 06/24/2024 AMENDED REPORT 06/24/24 1431 PATH REV previously reported as: Patricia delgado Serum or plasma hepatitis C virus RNA measurement by probe and target amplification mon 06-23-2024 HCV RNA JACKY+probe Qn Not detected . [facility] L501.5101on 06-22-2024 GGTP 25 IU/L Normal 0-65 [facility] Comment on above: Order Comment: Test( s) 398129-Gueuyilkcd (FK506), Bloodwas developed and its performance characteristicsdetermined by [facility]. It has not been cleared or approvedby the Food and Drug Administration. Result Comment: Perf ormed at: [address] [id number] Director: Sergio Machado MD, Phone: [phone] at: [address] [id number] Director: Red Graham PhD, Phone: [phone] Performed By: #### L 500.4050, L501.5101, L3380.1000, L501.4700, L100.0100, L501.5200, L501.2300 ####[facility] [address] [place], [address] Tacrolimus (Prograf)on 06-22 Tacrolimus (Bld) [Mass/Vol] 5.8 ng/mL Normal 5.0-20.0 [facility] Comment on above: Order Comment: Test( s) 570695-Hyoqnhrujl (FK506), Bloodwas developed and its performance characteristicsdetermined by [facility]. It has not been cleared or approvedby [...] 500.4050, L501.5101, L3380.1000, L501.4700, L100.0100, L501.5200, L501.2300 ####[facility] [address] [place], [address] Automated lymphocyte count a s percentage of total leukocyteson 06-20-2024 Lymphocytes/100 WBC Auto (Unsp spec) 11.1 % Low 19-41 [facility] Basophil percentageon 2024 Basophils/100 WBC (Bld) 0.9 % 0-1 [facility] Bilirubin, Directon 06-21-19 25 Bilirubin.direct [Mass/Vol] 0.35 mg/dL High 0.00-0.30 [facility] Comment on above: Performed By: #### L 500.4050, L501.5101, L3380.1000, L501.4700, L100.0100, L501.5200, L501.2300 ####[facility] [address] [place], [address] CBC W/Diff, Automatedon 04- Absolute Lymph 0.86 X10 3/uL Normal 0.83-4.51 [facility] Comment on above: Performed By: #### L 500.4050, L501.5101, L3380.1000, L501.4700, L100.0100, L501.5200, L501.2300 ####[facility] [address] [place], [address] Absolute Neut 6.2 X10 3/uL Normal 2.0-7.7 [facility] Comment on above: Performed By: #### L 500.4050, L501.5101, L3380.1000, L501.4700, L100.0100, L501.5200, L501.2300 ####[facility] [address] [place], [address] Basophils/100 WBC (Bld) 0.9 % Normal 0-1 [facility] Comment on above: Performed By: #### L 500.4050, L501.5101, L3380.1000, L501.4700, L100.0100, L501.5200, L501.2300 ####[facility] [address] [place], [address] Eosinophils/100 WBC (Bld) 0.1 % Normal 0-5 [facility] Comment on above: Performed By: #### L 500.4050, L501.5101, L3380.1000, L501.4700, L100.0100, L501.5200, L501.2300 ####[facility] [address] [place], [address] Erythrocyte distribution width (RBC) [Ratio] 16.7 % High 11.6-14.6 [facility] Comment on above: Performed By: #### L 500.4050, L501.5101, L3380.1000, L501.4700, L100.0100, L501.5200, L501.2300 ####[facility] [address] [place], [address] Hematocrit (Bld) [Volume fraction] 31.0 % Low 40-54 [facility] Comment on above: Performed By: #### L 500.4050, L501.5101, L3380.1000, L501.4700, L100.0100, L501.5200, L501.2300 ####[facility] [address] [place], [address] Hemoglobin (Bld) [Mass/Vol] 10.1 g/dL Low 13.0-16.5 [facility] Comment on above: Performed By: #### L 500.4050, L501.5101, L3380.1000, L501.4700, L100.0100, L501.5200, L501.2300 ####[facility] [address] [place], [address] IG% 4.100 High 0.0-0.9 [facility] Comment on above: Result Comment: IG% - Immature Granulocytes (promyelocytes, myelocytes andmetamyelocytes) > 1% indicates that a LEFT SHIFT is Present. Performed By: #### L 500.4050, L501.5101, L3380.1000, L501.4700, L100.0100, L501.5200, L501.2300 ####[facility] [address] [place], [address] Lymphocytes/100 WBC (Bld) 11.1 % Low 19-41 [facility] Comment on above: Performed By: #### L 500.4050, L501.5101, L3380.1000, L501.4700, L100.0100, L501.5200, L501.2300 ####[facility] [address] [place], [address] MCH (RBC) [Entitic mass] 31.2 pg Normal 27.0-32.0 [facility] Comment on above: Performed By: #### L 500.4050, L501.5101, L3380.1000, L501.4700, L100.0100, L501.5200, L501.2300 ####[facility] [address] [place], [address] MCHC (RBC) [Mass/Vol] 32.6 g/dL Normal 32-36 [facility] Comment on above: Performed By: #### L 500.4050, L501.5101, L3380.1000, L501.4700, L100.0100, L501.5200, L501.2300 ####[facility] [address] [place], [address] MCV (RBC) [Entitic vol] 95.7 fL High 80-94 [facility] Comment on above: Performed By: #### L 500.4050, L501.5101, L3380.1000, L501.4700, L100.0100, L501.5200, L501.2300 ####[facility] [address] [place], [address] Monocytes/100 WBC (Bld) 3.6 % Normal 0-10 [facility] Comment on above: Performed By: #### L 500.4050, L501.5101, L3380.1000, L501.4700, L100.0100, L501.5200, L501.2300 ####[facility] [address] [place], [address] Neutrophils/100 WBC (Bld) 80.2 % High 47-70 [facility] Comment on above: Performed By: #### L 500.4050, L501.5101, L3380.1000, L501.4700, L100.0100, L501.5200, L501.2300 ####[facility] [address] [place], [address] Nucleated RBC (Bld) [#/Vol] 0 10*3/uL Normal 0-5 [facility] Comment on above: Performed By: #### L 500.4050, L501.5101, L3380.1000, L501.4700, L100.0100, L501.5200, L501.2300 ####[facility] [address] [place], [address] Platelet mean volume (Bld) [Entitic vol] 10.2 fL Normal 6.2-12.0 [facility] Comment on above: Performed By: #### L 500.4050, L501.5101, L3380.1000, L501.4700, L100.0100, L501.5200, L501.2300 ####[facility] [address] [place], [address] Platelets (Bld) [#/Vol] 516 10*3/uL High 150-450 [facility] Comment on above: Performed By: #### L 500.4050, L501.5101, L3380.1000, L501.4700, L100.0100, L501.5200, L501.2300 ####[facility] [address] [place], [address] RBC (Bld) [#/Vol] 3.24 10*6/uL Low 4.6-6.2 [facility] Comment on above: Performed By: #### L 500.4050, L501.5101, L3380.1000, L501.4700, L100.0100, L501.5200, L501.2300 ####[facility] [address] [place], [address] RDW SD 58.4 fl High 35.1-43.9 [facility] Comment on above: Performed By: #### L 500.4050, L501.5101, L3380.1000, L501.4700, L100.0100, L501.5200, L501.2300 ####[facility] [address] [place], [address] WBC (Bld) [#/Vol] 7.8 10*3/uL Normal 4.4-11.0 [facility] Comment on above: Performed By: #### L 500.4050, L501.5101, L3380.1000, L501.4700, L100.0100, L501.5200, L501.2300 ####[facility] [address] [place], [address] Comprehensive Metabolic Prof [facility] 06-20-2024 Albumin [Mass/Vol] 3.6 g/dL Normal 3.5-5.0 [facility] Comment on above: Performed By: #### L 500.4050, L501.5101, L3380.1000, L501.4700, L100.0100, L501.5200, L501.2300 ####[facility] [address] [place], [address] Albumin/Globulin [Mass ratio] 1.3 {ratio} Normal 0.9-2.4 [facility] Comment on above: Performed By: #### L 500.4050, L501.5101, L3380.1000, L501.4700, L100.0100, L501.5200, L501.2300 ####[facility] [address] [place], [address] ALK PHOS 196 U/L High 40-129 [facility] Comment on above: Performed By: #### L 500.4050, L501.5101, L3380.1000, L501.4700, L100.0100, L501.5200, L501.2300 ####[facility] [address] [place], [address] ALT [Catalytic activity/Vol] 25 U/L Normal <=46 [facility] Comment on above: Performed By: #### L 500.4050, L501.5101, L3380.1000, L501.4700, L100.0100, L501.5200, L501.2300 ####[facility] [address] [place], [address] AST [Catalytic activity/Vol] 22 U/L Normal <=37 [facility] Comment on above: Performed By: #### L 500.4050, L501.5101, L3380.1000, L501.4700, L100.0100, L501.5200, L501.2300 ####[facility] [address] [place], [address] Bilirubin [Mass/Vol] 0.52 mg/dL Normal 0.00-1.30 [facility] Comment on above: Performed By: #### L 500.4050, L501.5101, L3380.1000, L501.4700, L100.0100, L501.5200, L501.2300 ####[facility] [address] [place], [address] BUN/CRE 25.0 RATIO High 10-20 [facility] Comment on above: Performed By: #### L 500.4050, L501.5101, L3380.1000, L501.4700, L100.0100, L501.5200, L501.2300 ####[facility] [address] [place], [address] Calcium [Mass/Vol] 9.2 mg/dL Normal 7.6-11.0 [facility] Comment on above: Performed By: #### L 500.4050, L501.5101, L3380.1000, L501.4700, L100.0100, L501.5200, L501.2300 ####[facility] [address] [place], [address] Chloride [Moles/Vol] 101 mmol/L Normal 98-108 [facility] Comment on above: Performed By: #### L 500.4050, L501.5101, L3380.1000, L501.4700, L100.0100, L501.5200, L501.2300 ####[facility] [address] [place], [address] CO2 [Moles/Vol] 28.0 mmol/L Normal 21.0-32.0 [facility] Comment on above: Performed By: #### L 500.4050, L501.5101, L3380.1000, L501.4700, L100.0100, L501.5200, L501.2300 ####[facility] [address] [place], [address] Creatinine [Mass/Vol] 1.03 mg/dL Normal 0.70-1.20 [facility] Comment on above: Performed By: #### L 500.4050, L501.5101, L3380.1000, L501.4700, L100.0100, L501.5200, L501.2300 ####[facility] [address] [place], [address] GAP 9 Normal 5-15 [facility] Comment on above: Performed By: #### L 500.4050, L501.5101, L3380.1000, L501.4700, L100.0100, L501.5200, L501.2300 ####[facility] [address] [place], [address] GFR/1.73 sq M.predicted among non-blacks MDRD (S/P/Bld) [Vol rate/Area] 84 mL/min/{1.73_m2} Normal >60 [facility] Comment on above: Result Comment: mL/m in/1.73m2 CKD-EPI Creatinine Equation (2020) Performed By: #### L 500.4050, L501.5101, L3380.1000, L501.4700, L100.0100, L501.5200, L501.2300 ####[facility] [address] [place], [address] Globulin (S) [Mass/Vol] 2.7 g/dL Normal 2.2-4.2 [facility] Comment on above: Performed By: #### L 500.4050, L501.5101, L3380.1000, L501.4700, L100.0100, L501.5200, L501.2300 ####[facility] [address] [place], [address] Glucose [Mass/Vol] 97 mg/dL Normal 70-99 [facility] Comment on above: Performed By: #### L 500.4050, L501.5101, L3380.1000, L501.4700, L100.0100, L501.5200, L501.2300 ####[facility] [address] [place], [address] Potassium [Moles/Vol] 4.4 mmol/L Normal 3.3-5.1 [facility] Comment on above: Performed By: #### L 500.4050, L501.5101, L3380.1000, L501.4700, L100.0100, L501.5200, L501.2300 ####[facility] [address] [place], [address] Sodium [Moles/Vol] 137 mmol/L Normal 133-145 [facility] Comment on above: Performed By: #### L 500.4050, L501.5101, L3380.1000, L501.4700, L100.0100, L501.5200, L501.2300 ####[facility] [address] [place], [address] T PROT 6.2 g/dL Normal 5.9-8.4 [facility] Comment on above: Performed By: #### L 500.4050, L501.5101, L3380.1000, L501.4700, L100.0100, L501.5200, L501.2300 ####[facility] [address] [place], [place], [id number] Urea nitrogen [Mass/Vol] 26 mg/dL High 4-19 [facility] Comment on above: Performed By: #### L 500.4050, L501.5101, L3380.1000, L501.4700, L100.0100, L501.5200, L501.2300 ####[facility] [address] [place], [place], [id number] Eosinophil percentageon 06-01 Eosinophils/100 WBC (Bld) 0.1 % 0-5 [facility] Immature granulocytes/100 WB C Auto (Bld)on 06-20-2024 Immature granulocytes/100 WBC (Bld) 4.100 % High 0.0-0.9 [facility] Comment on above: IG% - Immature Granu locytes (promyelocytes, myelocytes and metamyelocytes) > 1% indicates that a LEFT SHIFT is Present. Magnesiumon 06-20-2024 Magnesium [Mass/Vol] 1.8 mg/dL Normal 1.5-2.2 [facility] Comment on above: Performed By: #### L 500.4050, L501.5101, L3380.1000, L501.4700, L100.0100, L501.5200, L501.2300 ####[facility] [address] [place], [address] Monocyte percentageon 2024 Monocytes/100 WBC (Bld) 3.6 % 0-10 [facility] Nucleated red blood cell per centageon 06-20-2024 Nucleated RBC/100 WBC (Bld) [Ratio] 0 % 0-5 [facility] Phosphoruson 06-20-2024 Phosphate [Mass/Vol] 3.2 mg/dL Normal 2.7-4.5 [facility] Comment on above: Performed By: #### L 500.4050, L501.5101, L3380.1000, L501.4700, L100.0100, L501.5200, L501.2300 ####[facility] [address] [place], [address] L501.5101on 06-19-2024 GGTP 29 IU/L Normal 0-65 [facility] Comment on above: Order Comment: Test( s) 610000-Uuvpnlraex (FK506), Bloodwas developed and its performance characteristicsdetermined by [facility]. It has not been cleared or approvedby the Food and Drug Administration. Result Comment: Perf ormed at: [facility] [address] [id number] Director: Sergio Machado MD, Phone: [phone] at: [facility] Identropy[address] [id number] Director: Red Graham PhD, Phone: [phone] Performed By: #### L 501.4700, L500.4050, L3380.1000, L501.2300, L100.0100, L501.5200, L501.5101 ####[facility] [address] [place], [address] Tacrolimus (Prograf)on 06-19 Tacrolimus (Bld) [Mass/Vol] 4.1 ng/mL Low 5.0-20.0 [facility] Comment on above: Order Comment: Test( s) 981095-Yezmiytmis (FK506), Bloodwas developed and its performance characteristicsdetermined by [facility]. It has not been cleared or approvedby [...] 501.4700, L500.4050, L3380.1000, L501.2300, L100.0100, L501.5200, L501.5101 ####[facility] [address] [place], [address] [facility] Misc.on 06-17-2024 [facility] Misc. 4 COMMENT Normal . [facility] Comment on above: Order Comment: 17281 4PETH EDTA WB RF Result Comment: Test Ordered: 000721 Phosphatidylethanol (PEth)PHOSPHATIDYLETHANOL Negative MX Reference Range: .Phosphatidylethanol (PEth) Negative ng/mL MX Reference Range: .Analyzed compound: PEth 16:0/18:1. 9-ceuztchyd-3-rkjhim-ck-zimqukz-3-phosphoethanol.Analysis performed by Liquid Chromatography withTandem Mass Spectrometry [...] was developed and its performance characteristicsdetermined by [facility]. It has not been cleared or approvedby the Food and Drug Administration.Performed at: [employer] [address] [id number] Director: Clau Abdalla [facility], Phone: [phone] at: [facility] Labco[address] [id number] Director: Red Graham PhD, Phone: [phone] Performed By: #### L 3410.9998, L501.5101, L500.4050, L501.2300, L3380.1000, L501.5200, L501.4700, L100.0100 ####[facility] [address] [place], [place], [phone] Bilirubin, Directon 06-17-19 Bilirubin.direct [Mass/Vol] 0.45 mg/dL High 0.00-0.30 [facility] Comment on above: Performed By: #### L 501.4700, L500.4050, L3380.1000, L501.2300, L100.0100, L501.5200, L501.5101 ####[facility] [address] [place], [place], [id number] CBC W/Diff, Automatedon 05-31 Absolute Lymph 0.72 X10 3/uL Low 0.83-4.51 [facility] Comment on above: Performed By: #### L 501.4700, L500.4050, L3380.1000, L501.2300, L100.0100, L501.5200, L501.5101 ####[facility] [address] [place], [place], [phone]) Absolute Neut 6.5 X10 3/uL Normal 2.0-7.7 [facility] Comment on above: Performed By: #### L 501.4700, L500.4050, L3380.1000, L501.2300, L100.0100, L501.5200, L501.5101 ####[facility] [address] [place], [address] Basophils/100 WBC (Bld) 0.8 % Normal 0-1 [facility] Comment on above: Performed By: #### L 501.4700, L500.4050, L3380.1000, L501.2300, L100.0100, L501.5200, L501.5101 ####[facility] [address] [place], [address] Eosinophils/100 WBC (Bld) 0.1 % Normal 0-5 [facility] Comment on above: Performed By: #### L 501.4700, L500.4050, L3380.1000, L501.2300, L100.0100, L501.5200, L501.5101 ####[facility] [address] [place], [address] Erythrocyte distribution width (RBC) [Ratio] 16.2 % High 11.6-14.6 [facility] Comment on above: Performed By: #### L 501.4700, L500.4050, L3380.1000, L501.2300, L100.0100, L501.5200, L501.5101 ####[facility] [address] [place], [address] Hematocrit (Bld) [Volume fraction] 31.5 % Low 40-54 [facility] Comment on above: Performed By: #### L 501.4700, L500.4050, L3380.1000, L501.2300, L100.0100, L501.5200, L501.5101 ####[facility] [address] [place], [address] Hemoglobin (Bld) [Mass/Vol] 10.3 g/dL Low 13.0-16.5 [facility] Comment on above: Performed By: #### L 501.4700, L500.4050, L3380.1000, L501.2300, L100.0100, L501.5200, L501.5101 ####[facility] [address] [place], [address] IG% 1.900 High 0.0-0.9 [facility] Comment on above: Result Comment: IG% - Immature Granulocytes (promyelocytes, myelocytes andmetamyelocytes) > 1% indicates that a LEFT SHIFT is Present. Performed By: #### L 501.4700, L500.4050, L3380.1000, L501.2300, L100.0100, L501.5200, L501.5101 ####[facility] [address] [place], [address] Lymphocytes/100 WBC (Bld) 9.3 % Low 19-41 [facility] Comment on above: Performed By: #### L 501.4700, L500.4050, L3380.1000, L501.2300, L100.0100, L501.5200, L501.5101 ####[facility] [address] [place], [address] MCH (RBC) [Entitic mass] 31.2 pg Normal 27.0-32.0 [facility] Comment on above: Performed By: #### L 501.4700, L500.4050, L3380.1000, L501.2300, L100.0100, L501.5200, L501.5101 ####[facility] [address] [facility] [place], [address] MCHC (RBC) [Mass/Vol] 32.7 g/dL Normal 32-36 [facility] Comment on above: Performed By: #### L 501.4700, L500.4050, L3380.1000, L501.2300, L100.0100, L501.5200, L501.5101 ####[facility] [address] [facility] [address] [place], [address] MCV (RBC) [Entitic vol] 95.5 fL High 80-94 [facility] Comment on above: Performed By: #### L 501.4700, L500.4050, L3380.1000, L501.2300, L100.0100, L501.5200, L501.5101 ####[facility] [address] [place], [address] Monocytes/100 WBC (Bld) 5.0 % Normal 0-10 [facility] Comment on above: Performed By: #### L 501.4700, L500.4050, L3380.1000, L501.2300, L100.0100, L501.5200, L501.5101 ####[facility] [address] [place], [address] Neutrophils/100 WBC (Bld) 82.9 % High 47-70 [facility] Comment on above: Performed By: #### L 501.4700, L500.4050, L3380.1000, L501.2300, L100.0100, L501.5200, L501.5101 ####[facility] [address] [place], [address] Nucleated RBC (Bld) [#/Vol] 0 10*3/uL Normal 0-5 [facility] Comment on above: Performed By: #### L 501.4700, L500.4050, L3380.1000, L501.2300, L100.0100, L501.5200, L501.5101 ####[facility] [address] [place], [address] Platelet mean volume (Bld) [Entitic vol] 10.3 fL Normal 6.2-12.0 [facility] Comment on above: Performed By: #### L 501.4700, L500.4050, L3380.1000, L501.2300, L100.0100, L501.5200, L501.5101 ####[facility] [address] [place], [address] Platelets (Bld) [#/Vol] 621 10*3/uL High 150-450 [facility] Comment on above: Performed By: #### L 501.4700, L500.4050, L3380.1000, L501.2300, L100.0100, L501.5200, L501.5101 ####[facility] [address] [place], [address] RBC (Bld) [#/Vol] 3.30 10*6/uL Low 4.6-6.2 [facility] Comment on above: Performed By: #### L 501.4700, L500.4050, L3380.1000, L501.2300, L100.0100, L501.5200, L501.5101 ####[facility] [address] [place], [address] RDW SD 56.1 fl High 35.1-43.9 [facility] Comment on above: Performed By: #### L 501.4700, L500.4050, L3380.1000, L501.2300, L100.0100, L501.5200, L501.5101 ####[facility] [address] [place], [address] WBC (Bld) [#/Vol] 7.8 10*3/uL Normal 4.4-11.0 [facility] Comment on above: Performed By: #### L 501.4700, L500.4050, L3380.1000, L501.2300, L100.0100, L501.5200, L501.5101 ####[facility] [address] [place], [address] Comprehensive Metabolic Prof ilon 06-16-2024 Albumin [Mass/Vol] 3.3 g/dL Low 3.5-5.0 [facility] Comment on above: Performed By: #### L 501.4700, L500.4050, L3380.1000, L501.2300, L100.0100, L501.5200, L501.5101 ####[facility] [address] [place], [address] Albumin/Globulin [Mass ratio] 1.3 {ratio} Normal 0.9-2.4 [facility] Comment on above: Performed By: #### L 501.4700, L500.4050, L3380.1000, L501.2300, L100.0100, L501.5200, L501.5101 ####[facility] [address] [place], [address] ALK PHOS 212 U/L High 40-129 [facility] Comment on above: Performed By: #### L 501.4700, L500.4050, L3380.1000, L501.2300, L100.0100, L501.5200, L501.5101 ####[facility] [address] [place], [address] ALT [Catalytic activity/Vol] 23 U/L Normal <=46 [facility] Comment on above: Performed By: #### L 501.4700, L500.4050, L3380.1000, L501.2300, L100.0100, L501.5200, L501.5101 ####[facility] [address] [place], [address] AST [Catalytic activity/Vol] 24 U/L Normal <=37 [facility] Comment on above: Performed By: #### L 501.4700, L500.4050, L3380.1000, L501.2300, L100.0100, L501.5200, L501.5101 ####[facility] [address] [place], [address] Bilirubin [Mass/Vol] 0.64 mg/dL Normal 0.00-1.30 [facility] Comment on above: Performed By: #### L 501.4700, L500.4050, L3380.1000, L501.2300, L100.0100, L501.5200, L501.5101 ####[facility] [address] [place], [address] BUN/CRE 24.6 RATIO High 10-20 [facility] Comment on above: Performed By: #### L 501.4700, L500.4050, L3380.1000, L501.2300, L100.0100, L501.5200, L501.5101 ####[facility] [address] [place], [address] Calcium [Mass/Vol] 8.8 mg/dL Normal 7.6-11.0 [facility] Comment on above: Performed By: #### L 501.4700, L500.4050, L3380.1000, L501.2300, L100.0100, L501.5200, L501.5101 ####[facility] [address] [place], [address] Chloride [Moles/Vol] 100 mmol/L Normal 98-108 [facility] Comment on above: Performed By: #### L 501.4700, L500.4050, L3380.1000, L501.2300, L100.0100, L501.5200, L501.5101 ####[facility] [address] [place], [address] CO2 [Moles/Vol] 26.7 mmol/L Normal 21.0-32.0 [facility] Comment on above: Performed By: #### L 501.4700, L500.4050, L3380.1000, L501.2300, L100.0100, L501.5200, L501.5101 ####[facility] [address] [place], [address] Creatinine [Mass/Vol] 0.86 mg/dL Normal 0.70-1.20 [facility] Comment on above: Performed By: #### L 501.4700, L500.4050, L3380.1000, L501.2300, L100.0100, L501.5200, L501.5101 ####[facility] [address] [place], [address] GAP 8 Normal 5-15 [facility] Comment on above: Performed By: #### L 501.4700, L500.4050, L3380.1000, L501.2300, L100.0100, L501.5200, L501.5101 ####[facility] [address] [place], [address] GFR/1.73 sq M.predicted among non-blacks MDRD (S/P/Bld) [Vol rate/Area] 100 mL/min/{1.73_m2} Normal >60 [facility] Comment on above: Result Comment: mL/m in/1.73m2 CKD-EPI Creatinine Equation (2020) Performed By: #### L 501.4700, L500.4050, L3380.1000, L501.2300, L100.0100, L501.5200, L501.5101 ####[facility] [address] [place], [address] Globulin (S) [Mass/Vol] 2.5 g/dL Normal 2.2-4.2 [facility] Comment on above: Performed By: #### L 501.4700, L500.4050, L3380.1000, L501.2300, L100.0100, L501.5200, L501.5101 ####[facility] [address] [place], [address] Glucose [Mass/Vol] 87 mg/dL Normal 70-99 [facility] Comment on above: Performed By: #### L 501.4700, L500.4050, L3380.1000, L501.2300, L100.0100, L501.5200, L501.5101 ####[facility] [address] [place], [address] Potassium [Moles/Vol] 4.6 mmol/L Normal 3.3-5.1 [facility] Comment on above: Performed By: #### L 501.4700, L500.4050, L3380.1000, L501.2300, L100.0100, L501.5200, L501.5101 ####[facility] [address] [place], [address] Sodium [Moles/Vol] 135 mmol/L Normal 133-145 [facility] Comment on above: Performed By: #### L 501.4700, L500.4050, L3380.1000, L501.2300, L100.0100, L501.5200, L501.5101 ####[facility] [address] [place], [address] T PROT 5.8 g/dL Low 5.9-8.4 [facility] Comment on above: Performed By: #### L 501.4700, L500.4050, L3380.1000, L501.2300, L100.0100, L501.5200, L501.5101 ####[facility] [address] [place], [address] Urea nitrogen [Mass/Vol] 21 mg/dL High 4-19 [facility] Comment on above: Performed By: #### L 501.4700, L500.4050, L3380.1000, L501.2300, L100.0100, L501.5200, L501.5101 ####[facility] [address] [place], [address] Magnesiumon 06-16-2024 Magnesium [Mass/Vol] 1.7 mg/dL Normal 1.5-2.2 [facility] Comment on above: Performed By: #### L 501.4700, L500.4050, L3380.1000, L501.2300, L100.0100, L501.5200, L501.5101 ####[facility] [address] [place], [place], [phone] Phosphoruson 06-16-2024 Phosphate [Mass/Vol] 2.1 mg/dL Low 2.7-4.5 [facility] Comment on above: Performed By: #### L 501.4700, L500.4050, L3380.1000, L501.2300, L100.0100, L501.5200, L501.5101 ####[facility] [address] [place], [place], [phone] L501.5101on 06-15-2024 GGTP 31 IU/L Normal 0-65 [facility] Comment on above: Order Comment: Test( s) 156326-Tqanrwsogq (FK506), Bloodwas developed and its performance characteristicsdetermined by [facility]. It has not been cleared or approvedby the Food and Drug Administration. Result Comment: Perf ormed at: [facility] [address] [id number] Director: Sergio Machado MD, Phone: [phone] at: [address] [id number] Director: Red Graham PhD, Phone: [phone] Performed By: #### L 3410.9998, L501.5101, L500.4050, L501.2300, L3380.1000, L501.5200, L501.4700, L100.0100 ####[facility] [address] [place], [place], [address] Tacrolimus (Prograf)on 06-15 Tacrolimus (Bld) [Mass/Vol] 4.9 ng/mL Low 5.0-20.0 [facility] Comment on above: Order Comment: Test( s) [id number]-Vxthkaytqf (FK506), Bloodwas developed and its performance characteristicsdetermined by [facility]. It has not been cleared or approvedby [...] L501.5101, L500.4050, L501.2300, L3380.1000, L501.5200, L501.4700, L100.0100 ####[facility] [address] [place], [address] Bilirubin, Directon 06-14-19 25 Bilirubin.direct [Mass/Vol] 0.51 mg/dL High 0.00-0.30 [facility] Comment on above: Performed By: #### L 3410.9998, L501.5101, L500.4050, L501.2300, L3380.1000, L501.5200, L501.4700, L100.0100 ####[facility] [address] [place], [place], [id number] CBC W/Diff, Automatedon 04- Absolute Lymph 0.62 X10 3/uL Low 0.83-4.51 [facility] Comment on above: Performed By: #### L 3410.9998, L501.5101, L500.4050, L501.2300, L3380.1000, L501.5200, L501.4700, L100.0100 ####[facility] [address] [place], [address] Absolute Neut 9.0 X10 3/uL High 2.0-7.7 [facility] Comment on above: Performed By: #### L 3410.9998, L501.5101, L500.4050, L501.2300, L3380.1000, L501.5200, L501.4700, L100.0100 ####[facility] [address] [place], [address] Basophils/100 WBC (Bld) 0.8 % Normal 0-1 [facility] Comment on above: Performed By: #### L 3410.9998, L501.5101, L500.4050, L501.2300, L3380.1000, L501.5200, L501.4700, L100.0100 ####[facility] [address] [place], [address] Eosinophils/100 WBC (Bld) 0.0 % Normal 0-5 [facility] Comment on above: Performed By: #### L 3410.9998, L501.5101, L500.4050, L501.2300, L3380.1000, L501.5200, L501.4700, L100.0100 ####[facility] [address] [place], [address] Erythrocyte distribution width (RBC) [Ratio] 15.9 % High 11.6-14.6 [facility] Comment on above: Performed By: #### L 3410.9998, L501.5101, L500.4050, L501.2300, L3380.1000, L501.5200, L501.4700, L100.0100 ####[facility] [address] [place], [address] Hematocrit (Bld) [Volume fraction] 32.3 % Low 40-54 [facility] Comment on above: Performed By: #### L 3410.9998, L501.5101, L500.4050, L501.2300, L3380.1000, L501.5200, L501.4700, L100.0100 ####[facility] [address] [place], [address] Hemoglobin (Bld) [Mass/Vol] 10.5 g/dL Low 13.0-16.5 [facility] Comment on above: Performed By: #### L 3410.9998, L501.5101, L500.4050, L501.2300, L3380.1000, L501.5200, L501.4700, L100.0100 ####[facility] [address] [facility] [place], [address] IG% 0.700 Normal 0.0-0.9 [facility] Comment on above: Result Comment: IG% - Immature Granulocytes (promyelocytes, myelocytes andmetamyelocytes) > 1% indicates that a LEFT SHIFT is Present. Performed By: #### L 3410.9998, L501.5101, L500.4050, L501.2300, L3380.1000, L501.5200, L501.4700, L100.0100 ####[facility] [id number] [facility] [place], [address] Lymphocytes/100 WBC (Bld) 6.1 % Low 19-41 [facility] Comment on above: Performed By: #### L 3410.9998, L501.5101, L500.4050, L501.2300, L3380.1000, L501.5200, L501.4700, L100.0100 ####[facility] [id number] [facility] [place], [address] MCH (RBC) [Entitic mass] 31.2 pg Normal 27.0-32.0 [facility] Comment on above: Performed By: #### L 3410.9998, L501.5101, L500.4050, L501.2300, L3380.1000, L501.5200, L501.4700, L100.0100 ####[facility] [id number] [place], [address] MCHC (RBC) [Mass/Vol] 32.5 g/dL Normal 32-36 [facility] Comment on above: Performed By: #### L 3410.9998, L501.5101, L500.4050, L501.2300, L3380.1000, L501.5200, L501.4700, L100.0100 ####[facility] [id number] [place], [address] MCV (RBC) [Entitic vol] 95.8 fL High 80-94 [facility] Comment on above: Performed By: #### L 3410.9998, L501.5101, L500.4050, L501.2300, L3380.1000, L501.5200, L501.4700, L100.0100 ####[facility] [address] [place], [address] Monocytes/100 WBC (Bld) 3.7 % Normal 0-10 [facility] Comment on above: Performed By: #### L 3410.9998, L501.5101, L500.4050, L501.2300, L3380.1000, L501.5200, L501.4700, L100.0100 ####[facility] [address] [place], [address] Neutrophils/100 WBC (Bld) 88.7 % High 47-70 [facility] Comment on above: Performed By: #### L 3410.9998, L501.5101, L500.4050, L501.2300, L3380.1000, L501.5200, L501.4700, L100.0100 ####[facility] [address] [place], [address] Nucleated RBC (Bld) [#/Vol] 0 10*3/uL Normal 0-5 [facility] Comment on above: Performed By: #### L 3410.9998, L501.5101, L500.4050, L501.2300, L3380.1000, L501.5200, L501.4700, L100.0100 ####[facility] [address] [place], [phone]) Platelet mean volume (Bld) [Entitic vol] 10.7 fL Normal 6.2-12.0 [facility] Comment on above: Performed By: #### L 3410.9998, L501.5101, L500.4050, L501.2300, L3380.1000, L501.5200, L501.4700, L100.0100 ####[facility] [address] [place], [address](838) Platelets (Bld) [#/Vol] 530 10*3/uL High 150-450 [facility] Comment on above: Performed By: #### L 3410.9998, L501.5101, L500.4050, L501.2300, L3380.1000, L501.5200, L501.4700, L100.0100 ####[facility] [address] [place], [address](042) RBC (Bld) [#/Vol] 3.37 10*6/uL Low 4.6-6.2 [facility] Comment on above: Performed By: #### L 3410.9998, L501.5101, L500.4050, L501.2300, L3380.1000, L501.5200, L501.4700, L100.0100 ####[facility] [address] [place], [address] RDW SD 54.8 fl High 35.1-43.9 [facility] Comment on above: Performed By: #### L 3410.9998, L501.5101, L500.4050, L501.2300, L3380.1000, L501.5200, L501.4700, L100.0100 ####[facility] [address] [place], [place], [id number] WBC (Bld) [#/Vol] 10.1 10*3/uL Normal 4.4-11.0 [facility] Comment on above: Performed By: #### L 3410.9998, L501.5101, L500.4050, L501.2300, L3380.1000, L501.5200, L501.4700, L100.0100 ####[facility] [address] [place], [place], [id number] Comprehensive Metabolic Prof ilon 06-13-2024 Albumin [Mass/Vol] 3.4 g/dL Low 3.5-5.0 [facility] Comment on above: Performed By: #### L 3410.9998, L501.5101, L500.4050, L501.2300, L3380.1000, L501.5200, L501.4700, L100.0100 ####[facility] [address] [place], [address] Albumin/Globulin [Mass ratio] 1.4 {ratio} Normal 0.9-2.4 [facility] Comment on above: Performed By: #### L 3410.9998, L501.5101, L500.4050, L501.2300, L3380.1000, L501.5200, L501.4700, L100.0100 ####[facility] [address] [place], [place], [id number] ALK PHOS 215 U/L High 40-129 [facility] Comment on above: Performed By: #### L 3410.9998, L501.5101, L500.4050, L501.2300, L3380.1000, L501.5200, L501.4700, L100.0100 ####[facility] [address] [place], [address] ALT [Catalytic activity/Vol] 30 U/L Normal <=46 [facility] Comment on above: Performed By: #### L 3410.9998, L501.5101, L500.4050, L501.2300, L3380.1000, L501.5200, L501.4700, L100.0100 ####[facility] [address] [place], [address] AST [Catalytic activity/Vol] 29 U/L Normal <=37 [facility] Comment on above: Performed By: #### L 3410.9998, L501.5101, L500.4050, L501.2300, L3380.1000, L501.5200, L501.4700, L100.0100 ####[facility] [address] [place], [address] Bilirubin [Mass/Vol] 0.82 mg/dL Normal 0.00-1.30 [facility] Comment on above: Performed By: #### L 3410.9998, L501.5101, L500.4050, L501.2300, L3380.1000, L501.5200, L501.4700, L100.0100 ####[facility] [address] [place], [address] BUN/CRE 21.0 RATIO High 10-20 [facility] Comment on above: Performed By: #### L 3410.9998, L501.5101, L500.4050, L501.2300, L3380.1000, L501.5200, L501.4700, L100.0100 ####[facility] [address] [place], [address] Calcium [Mass/Vol] 8.7 mg/dL Normal 7.6-11.0 [facility] Comment on above: Performed By: #### L 3410.9998, L501.5101, L500.4050, L501.2300, L3380.1000, L501.5200, L501.4700, L100.0100 ####[facility] [address] [place], [address] Chloride [Moles/Vol] 99 mmol/L Normal 98-108 [facility] Comment on above: Performed By: #### L 3410.9998, L501.5101, L500.4050, L501.2300, L3380.1000, L501.5200, L501.4700, L100.0100 ####[facility] [address] [place], [place], [phone] CO2 [Moles/Vol] 22.3 mmol/L Normal 21.0-32.0 [facility] Comment on above: Performed By: #### L 3410.9998, L501.5101, L500.4050, L501.2300, L3380.1000, L501.5200, L501.4700, L100.0100 ####[facility] [address] [place], [place], [phone] Creatinine [Mass/Vol] 0.88 mg/dL Normal 0.70-1.20 [facility] Comment on above: Performed By: #### L 3410.9998, L501.5101, L500.4050, L501.2300, L3380.1000, L501.5200, L501.4700, L100.0100 ####[facility] [address] [place], [place], [phone] GAP 10 Normal 5-15 [facility] Comment on above: Performed By: #### L 3410.9998, L501.5101, L500.4050, L501.2300, L3380.1000, L501.5200, L501.4700, L100.0100 ####[facility] [address] [place], [address] GFR/1.73 sq M.predicted among non-blacks MDRD (S/P/Bld) [Vol rate/Area] 99 mL/min/{1.73_m2} Normal >60 [facility] Comment on above: Result Comment: mL/m in/1.73m2 CKD-EPI Creatinine Equation (2020) Performed By: #### L 3410.9998, L501.5101, L500.4050, L501.2300, L3380.1000, L501.5200, L501.4700, L100.0100 ####[facility] [address] [place], [address] Globulin (S) [Mass/Vol] 2.5 g/dL Normal 2.2-4.2 [facility] Comment on above: Performed By: #### L 3410.9998, L501.5101, L500.4050, L501.2300, L3380.1000, L501.5200, L501.4700, L100.0100 ####[facility] [address] [place], [address] Glucose [Mass/Vol] 97 mg/dL Normal 70-99 [facility] Comment on above: Performed By: #### L 3410.9998, L501.5101, L500.4050, L501.2300, L3380.1000, L501.5200, L501.4700, L100.0100 ####[facility] [address] [place], [address] Potassium [Moles/Vol] 4.3 mmol/L Normal 3.3-5.1 [facility] Comment on above: Performed By: #### L 3410.9998, L501.5101, L500.4050, L501.2300, L3380.1000, L501.5200, L501.4700, L100.0100 ####[facility] [address] [place], [address] Sodium [Moles/Vol] 131 mmol/L Low 133-145 [facility] Comment on above: Performed By: #### L 3410.9998, L501.5101, L500.4050, L501.2300, L3380.1000, L501.5200, L501.4700, L100.0100 ####[facility] [address] [place], [address] T PROT 5.9 g/dL Normal 5.9-8.4 [facility] Comment on above: Performed By: #### L 3410.9998, L501.5101, L500.4050, L501.2300, L3380.1000, L501.5200, L501.4700, L100.0100 ####[facility] [address] [place], [address] Urea nitrogen [Mass/Vol] 19 mg/dL Normal 4-19 [facility] Comment on above: Performed By: #### L 3410.9998, L501.5101, L500.4050, L501.2300, L3380.1000, L501.5200, L501.4700, L100.0100 ####[facility] [address] [place], [address] Magnesiumon 06-13-2024 Magnesium [Mass/Vol] 1.7 mg/dL Normal 1.5-2.2 [facility] Comment on above: Performed By: #### L 3410.9998, L501.5101, L500.4050, L501.2300, L3380.1000, L501.5200, L501.4700, L100.0100 ####[facility] [address] [place], [address] No Panel Informationon 06-13 Miscellaneous Test 4 COMMENT . [facility] Comment on above: Test Ordered: [id number] Phosphatidylethanol (PEth)PHOSPHATIDYLETHANOL Negative MX Reference Range: .Phosphatidylethanol (PEth) Negative ng/mL MX Reference Range: .Analyzed compound: PEth 16:0/18:1. 3-hjrfrbeos-2-kvfvyt-zm-ptoxubv-3-phosphoethanol.Analysis performed by Liquid Chromatography withTandem Mass Spectrometry [...] was developed and its performance characteristicsdetermined by [facility]. It has not been cleared or approvedby the Food and Drug Administration.Performed at: [employer] [address] [place] [address] [id number] Director: Clau Abdalla [facility], Phone: [phone] at: [facility] [address] [id number] Director: Red Graham PhD, Phone: [phone] Phosphoruson 06-13-2024 Phosphate [Mass/Vol] 2.1 mg/dL Low 2.7-4.5 [facility] Comment on above: Performed By: #### L 3410.9998, L501.5101, L500.4050, L501.2300, L3380.1000, L501.5200, L501.4700, L100.0100 ####[facility] [address] [place], [address] CALCIUMon 06-10-2024 Calcium [Mass/Vol] 7.8 mg/dL Low 8.6-10.5 [facility] Comment on above: Performed By: #### I PB, HFP, CHM7, MGO, CA ####[facility] (DEFAULT)[address] [place] [address] CBC,PLATELETSon 06-10-2024 Hematocrit (Bld) [Volume fraction] 30.8 % Low 39.6-48.8 [facility] Comment on above: Performed By: #### H EMOGC ####[facility] (DEFAULT)[address] [place] [address] Hemoglobin (Bld) [Mass/Vol] 10.0 g/dL Low 13.4-16.8 [facility] Comment on above: Performed By: #### H EMOGC ####[facility] (DEFAULT)[address] [place] [address], [place] [address] MCV (RBC) [Entitic vol] 94.2 fL Normal 79.0-94.5 [facility] Comment on above: Performed By: #### H EMOGC ####[facility] (DEFAULT)[address] [facility] [address] Mean Cell Hgb 30.6 pg Normal 26.1-33.3 [facility] Comment on above: Performed By: #### H EMOGC ####[facility] (DEFAULT)[address] [place] [address] Mean Cell Hgb Conc 32.5 g/dL Normal 31.9-36.5 [facility] Comment on above: Performed By: #### H EMOGC ####[facility] (DEFAULT)[address] [place] [address], [place] [address] Platelet mean volume (Bld) [Entitic vol] 11.6 fL Normal 8.7-12.3 [facility] Comment on above: Performed By: #### H EMOGC ####[facility] (DEFAULT)[address] [place] [address] Platelets (Bld) [#/Vol] 205 10*3/uL Normal 146-337 [facility] Comment on above: Performed By: #### H EMOGC ####[facility] (DEFAULT)[address] [place] [address] RBC (Bld) [#/Vol] 3.27 10*6/uL Low 4.38-5.83 [facility] Comment on above: Performed By: #### H EMO ####[facility] (DEFAULT)[address] [place] [address] RBC Distribution 15.5 % High 10.9-14.3 [facility] Comment on above: Performed By: #### [facility] ####[facility] (DEFAULT)[address] [place] [address] WBC (Bld) [#/Vol] 9.04 10*3/uL Normal 3.73-10.10 [facility] Comment on above: Performed By: #### [facility] ####[facility] (DEFAULT)[address] [place] [address] CHEM 7 (LYTES,BUN,CREA,GLUC) on 06-10-2024 Anion gap [Moles/Vol] 10 mmol/L Normal 7-17 [facility] Comment on above: Performed By: #### I PB, HFP, CHM7, MGO, CA ####[facility] (DEFAULT)[address] [place] [address] Chloride [Moles/Vol] 100 mmol/L Normal 98-108 [facility] Comment on above: Performed By: #### I PB, HFP, CHM7, MGO, CA ####[facility] (DEFAULT)[address] [place] [address] CO2 [Moles/Vol] 25 mmol/L Normal 21-31 [facility] Comment on above: Performed By: #### I PB, HFP, CHM7, MGO, CA ####[facility] (DEFAULT)[address] [place] [address] Creatinine [Mass/Vol] 0.71 mg/dL Normal 0.70-1.30 [facility] Comment on above: Performed By: #### I PB, HFP, CHM7, MGO, CA ####[facility] (DEFAULT)[address] [place] [address] eGFR, CKD-EPI, Male > Normal >=60 [facility] Comment on above: Result Comment: Repo rted eGFR is based on the CKD-EPI 2020 equation using creatinine, age, and sex. Performed By: #### I PB, HFP, CHM7, MGO, CA ####[facility] (DEFAULT)[address] [place] [address] Glucose [Mass/Vol] 93 mg/dL Normal Nonfastin -179 mg/dL; Fastin-99 [facility] Comment on above: Performed By: #### I PB, HFP, CHM7, MGO, CA ####[facility] (DEFAULT)[address] [place] [address] Osmolality [Osmolality] 277 mosm/kg Low 278-305 [facility] Comment on above: Performed By: #### I PB, HFP, CHM7, MGO, CA ####[facility] (DEFAULT)[address] [place] [address] Potassium [Moles/Vol] 4.8 mmol/L Normal 3.5-5.0 [facility] Comment on above: Performed By: #### I PB, HFP, CHM7, MGO, CA ####[facility] (DEFAULT)[address] [place] [address] Sodium [Moles/Vol] 130 mmol/L Low 135-145 [facility] Comment on above: Performed By: #### I PB, HFP, CHM7, MGO, CA ####[facility] (DEFAULT)[address] [place] [address] Urea nitrogen [Mass/Vol] 18 mg/dL Normal 7-25 [facility] Comment on above: Performed By: #### I PB, HFP, CHM7, MGO, CA ####[facility] (DEFAULT)[address] [place] [address] Urea nitrogen/Creatinine [Mass ratio] 25 mg/mg Normal [facility] Comment on above: Performed By: #### I PB, HFP, CHM7, MGO, CA ####[facility] (DEFAULT)[address] [place] [address] HEPATIC FUNCTION PANELon Albumin [Mass/Vol] 3.0 g/dL Low 3.5-5.0 [facility] Comment on above: Performed By: #### I PB, HFP, CHM7, MGO, CA ####[facility] (DEFAULT)[address] [place] [address] ALP [Catalytic activity/Vol] 145 U/L High 32-126 [facility] Comment on above: Performed By: #### I PB, HFP, CHM7, MGO, CA ####[facility] (DEFAULT)[address] [place] [address] ALT [Catalytic activity/Vol] 21 U/L Normal 10-52 [facility] Comment on above: Performed By: #### I PB, HFP, CHM7, MGO, CA ####[facility] (DEFAULT)[address] [place] [address] AST [Catalytic activity/Vol] 16 U/L Normal 10-39 [facility] Comment on above: Performed By: #### I PB, HFP, CHM7, MGO, CA ####[facility] (DEFAULT)[address] [place] [address] Bilirubin [Mass/Vol] 1.1 mg/dL Normal <1.5 [facility] Comment on above: Performed By: #### I PB, HFP, CHM7, MGO, CA ####[facility] (DEFAULT)[address] [place] [address] Bilirubin.indirect [Mass/Vol] 0.4 mg/dL High <0.3 [facility] Comment on above: Performed By: #### I PB, HFP, CHM7, MGO, CA ####[facility] (DEFAULT)[address] [place] [address] Protein [Mass/Vol] 5.0 g/dL Low 6.4-8.3 [facility] Comment on above: Performed By: #### I PB, HFP, CHM7, MGO, CA ####[facility] (DEFAULT)[address] [place] [address] IONIZED CALCIUM, WHOLE BLOOD on 06-10-2024 ICA 4.34 mg/dL Low 4.60-5.30 [facility] Comment on above: Performed By: #### I CA ####[facility] (DEFAULT)[address] [place] [address] LACTATE, BLOODon 06-10-2024 Lactate, Blood 1.2 mmol/L Normal 0.5-1.6 [facility] Comment on above: Performed By: #### L ACT ####[facility] (DEFAULT)[address] [place] [address] MAGNESIUMon 06-10-2024 Magnesium [Mass/Vol] 1.9 mg/dL Normal 1.6-2.6 [facility] Comment on above: Performed By: #### I PB, HFP, CHM7, MGO, CA ####[facility] (DEFAULT)[address] [place] [address] PHOSPHATE, INORGANICon 06-10 Phosphorous 1.7 mg/dL Low 2.2-4.6 [facility] Comment on above: Performed By: #### I PB, HFP, CHM7, MGO, CA ####[facility] (DEFAULT)[address] [place] [address] PT,INR,PTTon 06-10-2024 aPTT Coag (Bld) [Time] 29.9 s Normal 24.0-34.3 [facility] Comment on above: Performed By: #### P TPTT ####[facility] (DEFAULT)[address] [place] [address] INR Coag (PPP) [Relative time] 1.1 {INR} Normal 0.9-1.1 [facility] Comment on above: Performed By: #### P TPTT ####[facility] (DEFAULT)[address] [place] [address] PT Coag (PPP) [Time] 13.7 s Normal 11.9-14.2 [facility] Comment on above: Performed By: #### P TPTT ####[facility] (DEFAULT)[address] [place] [address] TACROLIMUS LEVEL, TROUGH (NE E DRUG LEVEL)on 06-10-2024 Tacrolimus, Trough 7.1 ng/mL Normal Bone Veronique ow Transplant: 5.0-15.0 Kidney/Pancre atic Transplant: 0 to 3 months: 8.0-10.0, 3 to 12 months: 6.0-8.0, >12 months: 4.0-6.0 [facility] Comment on above: Order Comment: Pleas e draw at specified interval PRIOR to dose. Do not hold dose to wait for level. Specimens batched twice per day, (M-F) and once per day weekendsMethod performed is a chemiluminescent microparticle immunoasssay on the [employer] i2000.The range is based on experience at [facility] and users should be aware that target concentrations vary widely depending on concomitant therapy, time post-transplant, and desired degree of immunosuppression. Performed By: #### T ACRO ####[facility] (DEFAULT)[address] [place] [address] CALCIUMon 06-09-2024 Calcium [Mass/Vol] 8.1 mg/dL Low 8.6-10.5 [facility] Comment on above: Performed By: #### I PB, HFP, CHM7, MGO, CA ####[facility] (DEFAULT)[address] [place] [address] CBC,PLATELETSon 06-09-2024 Hematocrit (Bld) [Volume fraction] 32.9 % Low 39.6-48.8 [facility] Comment on above: Performed By: #### H EMO ####[facility] (DEFAULT)[address] [place] [address] Hemoglobin (Bld) [Mass/Vol] 10.7 g/dL Low 13.4-16.8 [facility] Comment on above: Performed By: #### H EMO ####[facility] (DEFAULT)[address] [place] [address] MCV (RBC) [Entitic vol] 93.2 fL Normal 79.0-94.5 [facility] Comment on above: Performed By: #### H EMO ####[facility] (DEFAULT)[address] [place] [address] Mean Cell Hgb 30.3 pg Normal 26.1-33.3 [facility] Comment on above: Performed By: #### H EMO ####[facility] (DEFAULT)[address] [place] [address] Mean Cell Hgb Conc 32.5 g/dL Normal 31.9-36.5 [facility] Comment on above: Performed By: #### H EMOGC ####[facility] (DEFAULT)[address] [place] [address] Platelet mean volume (Bld) [Entitic vol] 11.6 fL Normal 8.7-12.3 [facility] Comment on above: Performed By: #### H EMOGC ####[facility] (DEFAULT)[address] [place] [address] Platelets (Bld) [#/Vol] 147 10*3/uL Normal 146-337 [facility] Comment on above: Performed By: #### H EMOGC ####[facility] (DEFAULT)[address] [place] [address] RBC (Bld) [#/Vol] 3.53 10*6/uL Low 4.38-5.83 [facility] Comment on above: Performed By: #### H EMOGC ####[facility] (DEFAULT)[address] [place] [address] RBC Distribution 15.5 % High 10.9-14.3 [facility] Comment on above: Performed By: #### H EMOGC ####[facility] (DEFAULT)[address] [place] [address] WBC (Bld) [#/Vol] 8.37 10*3/uL Normal 3.73-10.10 [facility] Comment on above: Performed By: #### H EMOGC ####[facility] (DEFAULT)[address] [place] [address] Hematocrit (Bld) [Volume fraction] 33.0 % Low 39.6-48.8 [facility] Comment on above: Performed By: #### H EMOGC ####[facility] (DEFAULT)[address] [place] [address] Hemoglobin (Bld) [Mass/Vol] 10.8 g/dL Low 13.4-16.8 [facility] Comment on above: Performed By: #### H EMOGC ####[facility] (DEFAULT)[address] [place] [address] MCV (RBC) [Entitic vol] 94.8 fL High 79.0-94.5 [facility] Comment on above: Performed By: #### H EMOGC ####[facility] (DEFAULT)[address] [place] [address] Mean Cell Hgb 31.0 pg Normal 26.1-33.3 [facility] Comment on above: Performed By: #### H EMOGC ####[facility] (DEFAULT)[address] [place] [address] Mean Cell Hgb Conc 32.7 g/dL Normal 31.9-36.5 [facility] Comment on above: Performed By: #### H EMOGC ####[facility] (DEFAULT)[address] [place] [address] Mean Platelet Volume Normal [facility] Comment on above: Result Comment: Not measured Performed By: #### H EMOGC ####[facility] (DEFAULT)[address] [place] [address] Platelets (Bld) [#/Vol] 135 10*3/uL Low 146-337 [facility] Comment on above: Performed By: #### H EMOGC ####[facility] (DEFAULT)[address] [place] [address] RBC (Bld) [#/Vol] 3.48 10*6/uL Low 4.38-5.83 [facility] Comment on above: Performed By: #### H EMO ####[facility] (DEFAULT)[address] [place] [address] RBC Distribution 15.7 % High 10.9-14.3 [facility] Comment on above: Performed By: #### H EMOGC ####[facility] (DEFAULT)[address] [place] [address] WBC (Bld) [#/Vol] 8.26 10*3/uL Normal 3.73-10.10 [facility] Comment on above: Performed By: #### H EMOGC ####[facility] (DEFAULT)[address] [place] [address] CHEM 7 (LYTES,BUN,CREA,GLUC) on 06-09-2024 Anion gap [Moles/Vol] 12 mmol/L Normal 7-17 [facility] Comment on above: Performed By: #### I PB, HFP, CHM7, MGO ####[facility] (DEFAULT)[address] [place] [address] Chloride [Moles/Vol] 101 mmol/L Normal 98-108 [facility] Comment on above: Performed By: #### I PB, HFP, CHM7, MGO ####[facility] (DEFAULT)[address] [place] [address] CO2 [Moles/Vol] 23 mmol/L Normal 21-31 [facility] Comment on above: Performed By: #### I PB, HFP, CHM7, MGO ####[facility] (DEFAULT)[address] [place] [address] Creatinine [Mass/Vol] 0.77 mg/dL Normal 0.70-1.30 [facility] Comment on above: Performed By: #### I PB, HFP, CHM7, MGO ####[facility] (DEFAULT)[address] [place] [address] eGFR, CKD-EPI, Male > Normal >=60 [facility] Comment on above: Result Comment: Repo rted eGFR is based on the CKD-EPI 2020 equation using creatinine, age, and sex. Performed By: #### I PB, HFP, CHM7, MGO ####[facility] (DEFAULT)[address] [place] [address] Glucose [Mass/Vol] 126 mg/dL Normal Nonfastin -179 mg/dL; Fastin-99 [facility] Comment on above: Performed By: #### I PB, HFP, CHM7, MGO ####[facility] (DEFAULT)[address] [place] [address] Osmolality [Osmolality] 281 mosm/kg Normal 278-305 [facility] Comment on above: Performed By: #### I PB, HFP, CHM7, MGO ####[facility] (DEFAULT)[address] [place] [address] Potassium [Moles/Vol] 4.5 mmol/L Normal 3.5-5.0 [facility] Comment on above: Performed By: #### I PB, HFP, CHM7, MGO ####[facility] (DEFAULT)[address] [place] [address] Sodium [Moles/Vol] 131 mmol/L Low 135-145 [facility] Comment on above: Performed By: #### I PB, HFP, CHM7, MGO ####[facility] (DEFAULT)[address] [place] [address] Urea nitrogen [Mass/Vol] 20 mg/dL Normal 7-25 [facility] Comment on above: Performed By: #### I PB, HFP, CHM7, MGO ####[facility] (DEFAULT)[address] [place] [address] Urea nitrogen/Creatinine [Mass ratio] 26 mg/mg Normal [facility] Comment on above: Performed By: #### I PB, HFP, CHM7, MGO ####[facility] (DEFAULT)[address] [place] [address] Anion gap [Moles/Vol] 11 mmol/L Normal 7-17 [facility] Comment on above: Performed By: #### I PB, HFP, CHM7, MGO, CA ####[facility] (DEFAULT)[address] [place] [address] Chloride [Moles/Vol] 101 mmol/L Normal 98-108 [facility] Comment on above: Performed By: #### I PB, HFP, CHM7, MGO, CA ####[facility] (DEFAULT)[address] [place] [address] CO2 [Moles/Vol] 24 mmol/L Normal 21-31 [facility] Comment on above: Performed By: #### I PB, HFP, CHM7, MGO, CA ####[facility] (DEFAULT)[address] [place] [address] Creatinine [Mass/Vol] 0.80 mg/dL Normal 0.70-1.30 [facility] Comment on above: Performed By: #### I PB, HFP, CHM7, MGO, CA ####[facility] (DEFAULT)[address] [place] [address] eGFR, CKD-EPI, Male > Normal >=60 [facility] Comment on above: Result Comment: Repo rted eGFR is based on the CKD-EPI 2020 equation using creatinine, age, and sex. Performed By: #### I PB, HFP, CHM7, MGO, CA ####[facility] (DEFAULT)[address] [place] [address] Glucose [Mass/Vol] 82 mg/dL Normal Nonfastin -179 mg/dL; Fastin-99 [facility] Comment on above: Performed By: #### I PB, HFP, CHM7, MGO, CA ####[facility] (DEFAULT)[address] [place] [address] Osmolality [Osmolality] 280 mosm/kg Normal 278-305 [facility] Comment on above: Performed By: #### I PB, HFP, CHM7, MGO, CA ####[facility] (DEFAULT)[address] [place] [address] Potassium [Moles/Vol] 5.0 mmol/L Normal 3.5-5.0 [facility] Comment on above: Performed By: #### I PB, HFP, CHM7, MGO, CA ####[facility] (DEFAULT)[address] [place] [address] Sodium [Moles/Vol] 131 mmol/L Low 135-145 [facility] Comment on above: Performed By: #### I PB, HFP, CHM7, MGO, CA ####[facility] (DEFAULT)[address] [place] [address] Urea nitrogen [Mass/Vol] 22 mg/dL Normal 7-25 [facility] Comment on above: Performed By: #### I PB, HFP, CHM7, MGO, CA ####[facility] (DEFAULT)[address] [place] [address] Urea nitrogen/Creatinine [Mass ratio] 28 mg/mg Normal [facility] Comment on above: Performed By: #### I PB, HFP, CHM7, MGO, CA ####[facility] (DEFAULT)[address] [place] [address] HEPATIC FUNCTION PANELon Albumin [Mass/Vol] 3.0 g/dL Low 3.5-5.0 [facility] Comment on above: Performed By: #### I PB, HFP, CHM7, MGO ####[facility] (DEFAULT)[address] [place] [address] ALP [Catalytic activity/Vol] 120 U/L Normal 32-126 [facility] Comment on above: Performed By: #### I PB, HFP, CHM7, MGO ####[facility] (DEFAULT)[address] [place] [address] ALT [Catalytic activity/Vol] 22 U/L Normal 10-52 [facility] Comment on above: Performed By: #### I PB, HFP, CHM7, MGO ####[facility] (DEFAULT)[address] [place] [address] AST [Catalytic activity/Vol] 13 U/L Normal 10-39 [facility] Comment on above: Performed By: #### I PB, HFP, CHM7, MGO ####[facility] (DEFAULT)[address] [place] [address] Bilirubin [Mass/Vol] 1.2 mg/dL Normal <1.5 [facility] Comment on above: Performed By: #### I PB, HFP, CHM7, MGO ####[facility] (DEFAULT)[address] [place] [address] Bilirubin.indirect [Mass/Vol] 0.5 mg/dL High <0.3 [facility] Comment on above: Performed By: #### I PB, HFP, CHM7, MGO ####[facility] (DEFAULT)[address] [place] [address] Protein [Mass/Vol] 5.0 g/dL Low 6.4-8.3 [facility] Comment on above: Performed By: #### I PB, HFP, CHM7, MGO ####[facility] (DEFAULT)[address] [place] [address] Albumin [Mass/Vol] 3.0 g/dL Low 3.5-5.0 [facility] Comment on above: Performed By: #### I PB, HFP, CHM7, MGO, CA ####[facility] (DEFAULT)[address] [place] [address] ALP [Catalytic activity/Vol] 121 U/L Normal 32-126 [facility] Comment on above: Performed By: #### I PB, HFP, CHM7, MGO, CA ####[facility] (DEFAULT)[address] [place] [address] ALT [Catalytic activity/Vol] 22 U/L Normal 10-52 [facility] Comment on above: Performed By: #### I PB, HFP, CHM7, MGO, CA ####[facility] (DEFAULT)[address] [place] [address] AST [Catalytic activity/Vol] 18 U/L Normal 10-39 [facility] Comment on above: Performed By: #### I PB, HFP, CHM7, MGO, CA ####[facility] (DEFAULT)[address] [place] [address] Bilirubin [Mass/Vol] 1.3 mg/dL Normal <1.5 [facility] Comment on above: Performed By: #### I PB, HFP, CHM7, MGO, CA ####[facility] (DEFAULT)[address] [place] [address] Bilirubin.indirect [Mass/Vol] 0.4 mg/dL High <0.3 [facility] Comment on above: Performed By: #### I PB, HFP, CHM7, MGO, CA ####[facility] (DEFAULT)[address] [place] [address] Protein [Mass/Vol] 5.0 g/dL Low 6.4-8.3 [facility] Comment on above: Performed By: #### I PB, HFP, CHM7, MGO, CA ####[facility] (DEFAULT)[address] [place] [address] IONIZED CALCIUM, WHOLE BLOOD on 06-09-2024 ICA 4.12 mg/dL Low 4.60-5.30 [facility] Comment on above: Performed By: #### I CA ####[facility] (DEFAULT)[address] [place] [address] LACTATE, BLOODon 06-09-2024 Lactate, Blood 2.7 mmol/L High 0.5-1.6 [facility] Comment on above: Result Comment: Lact ate results >/= 2.0 mmol/L should be followed up with a measurement 2 hours later for patients with suspicion of sepsis. Performed By: #### L ACT ####[facility] (DEFAULT)[address] [place] [address] MAGNESIUMon 06-09-2024 Magnesium [Mass/Vol] 2.5 mg/dL Normal 1.6-2.6 [facility] Comment on above: Performed By: #### I PB, MGO ####[facility] (DEFAULT)[address] [place] [address] Magnesium [Mass/Vol] 1.3 mg/dL Low 1.6-2.6 [facility] Comment on above: Performed By: #### I PB, HFP, CHM7, MGO ####[facility] (DEFAULT)[address] [place] [address] Magnesium [Mass/Vol] 1.4 mg/dL Low 1.6-2.6 [facility] Comment on above: Performed By: #### I PB, HFP, CHM7, MGO, CA ####[facility] (DEFAULT)[address] [place] [address] PHOSPHATE, INORGANICon 06-09 Phosphorous 1.9 mg/dL Low 2.2-4.6 [facility] Comment on above: Performed By: #### I PB, MGO ####[facility] (DEFAULT)[address] [place] [address] Phosphorous 1.4 mg/dL Low 2.2-4.6 [facility] Comment on above: Performed By: #### I PB, HFP, CHM7, MGO ####[facility] (DEFAULT)[address] [place] [address] Phosphorous 1.4 mg/dL Low 2.2-4.6 [facility] Comment on above: Performed By: #### I PB, HFP, CHM7, MGO, CA ####[facility] (DEFAULT)[address] [place] [address] PT,INR,PTTon 06-09-2024 aPTT Coag (Bld) [Time] 29.6 s Normal 24.0-34.3 [facility] Comment on above: Performed By: #### P TPTT ####[facility] (DEFAULT)[address] [place] [address] INR Coag (PPP) [Relative time] 1.1 {INR} Normal 0.9-1.1 [facility] Comment on above: Performed By: #### P TPTT ####[facility] (DEFAULT)[address] [place] [address] PT Coag (PPP) [Time] 13.9 s Normal 11.9-14.2 [facility] Comment on above: Performed By: #### P TPTT ####[facility] (DEFAULT)[address] [place] [address] TACROLIMUS LEVEL, TROUGH (NE E DRUG LEVEL)on 06-09-2024 Tacrolimus, Trough 8.8 ng/mL Normal Bone Veronique ow Transplant: 5.0-15.0 Kidney/Pancre atic Transplant: 0 to 3 months: 8.0-10.0, 3 to 12 months: 6.0-8.0, >12 months: 4.0-6.0 [facility] Comment on above: Order Comment: Pleas e draw at specified interval PRIOR to dose. Do not hold dose to wait for level. Specimens batched twice per day, (M-F) and once per day weekendsMethod performed is a chemiluminescent microparticle immunoasssay on the [employer] i2000.The range is based on experience at [facility] and users should be aware that target concentrations vary widely depending on concomitant therapy, time post-transplant, and desired degree of immunosuppression. Performed By: #### T ACRO ####[facility] (DEFAULT)[address] [place] [address] Tacrolimus, Trough 8.6 ng/mL Normal Bone Veronique ow Transplant: 5.0-15.0 Kidney/Pancre atic Transplant: 0 to 3 months: 8.0-10.0, 3 to 12 months: 6.0-8.0, >12 months: 4.0-6.0 [facility] Comment on above: Order Comment: Pleas e draw at specified interval PRIOR to dose. Do not hold dose to wait for level. Specimens batched twice per day, (M-F) and once per day weekendsMethod performed is a chemiluminescent microparticle immunoasssay on the [employer] i2000.The range is based on experience at [facility] and users should be aware that target concentrations vary widely depending on concomitant therapy, time post-transplant, and desired degree of immunosuppression. Performed By: #### T ACRO ####[facility] (DEFAULT)[address] [place] [address] CALCIUMon 06-08-2024 Calcium [Mass/Vol] 8.0 mg/dL Low 8.6-10.5 [facility] Comment on above: Performed By: #### I PB, HFP, CHM7, MGO, CA ####[facility] (DEFAULT)[address] [place] [address] CBC,PLATELETSon 06-08-2024 Hematocrit (Bld) [Volume fraction] 30.8 % Low 39.6-48.8 [facility] Comment on above: Performed By: #### H EMOGC ####[facility] (DEFAULT)[address] [place] [address] Hemoglobin (Bld) [Mass/Vol] 10.2 g/dL Low 13.4-16.8 [facility] Comment on above: Performed By: #### H EMOGC ####[facility] (DEFAULT)[address] [place] [address] MCV (RBC) [Entitic vol] 91.9 fL Normal 79.0-94.5 [facility] Comment on above: Performed By: #### H EMOGC ####[facility] (DEFAULT)[address] [place] [address] Mean Cell Hgb 30.4 pg Normal 26.1-33.3 [facility] Comment on above: Performed By: #### H EMOGC ####[facility] (DEFAULT)[address] [place] [address] Mean Cell Hgb Conc 33.1 g/dL Normal 31.9-36.5 [facility] Comment on above: Performed By: #### H EMOGC ####[facility] (DEFAULT)[address] [place] [address] Mean Platelet Volume Normal [facility] Comment on above: Result Comment: Not measured Performed By: #### H EMO ####[facility] (DEFAULT)[address] [place] [address] Platelets (Bld) [#/Vol] 74 10*3/uL Low 146-337 [facility] Comment on above: Performed By: #### H EMO ####[facility] (DEFAULT)[address] [place] [address] RBC (Bld) [#/Vol] 3.35 10*6/uL Low 4.38-5.83 [facility] Comment on above: Performed By: #### H EMO ####[facility] (DEFAULT)[address] [place] [address] RBC Distribution 15.3 % High 10.9-14.3 [facility] Comment on above: Performed By: #### H EMO ####[facility] (DEFAULT)[address] [place] [address] WBC (Bld) [#/Vol] 7.79 10*3/uL Normal 3.73-10.10 [facility] Comment on above: Performed By: #### H EMO ####[facility] (DEFAULT)[address] [place] [address] CHEM 7 (LYTES,BUN,CREA,GLUC) on 06-08-2024 Anion gap [Moles/Vol] 11 mmol/L Normal 7-17 [facility] Comment on above: Performed By: #### I PB, HFP, CHM7, MGO, CA ####[facility] (DEFAULT)[address] [place] [address] Chloride [Moles/Vol] 104 mmol/L Normal 98-108 [facility] Comment on above: Performed By: #### I PB, HFP, CHM7, MGO, CA ####[facility] (DEFAULT)[address] [place] [address] CO2 [Moles/Vol] 24 mmol/L Normal 21-31 [facility] Comment on above: Performed By: #### I PB, HFP, CHM7, MGO, CA ####[facility] (DEFAULT)[address] [place] [address] Creatinine [Mass/Vol] 0.73 mg/dL Normal 0.70-1.30 [facility] Comment on above: Performed By: #### I PB, HFP, CHM7, MGO, CA ####[facility] (DEFAULT)[address] [place] [address] eGFR, CKD-EPI, Male > Normal >=60 [facility] Comment on above: Result Comment: Repo rted eGFR is based on the CKD-EPI 2020 equation using creatinine, age, and sex. Performed By: #### I PB, HFP, CHM7, MGO, CA ####[facility] (DEFAULT)[address] [place] [address] Glucose [Mass/Vol] 99 mg/dL Normal Nonfastin -179 mg/dL; Fastin-99 [facility] Comment on above: Performed By: #### I PB, HFP, CHM7, MGO, CA ####[facility] (DEFAULT)[address] [place] [address] Osmolality [Osmolality] 287 mosm/kg Normal 278-305 [facility] Comment on above: Performed By: #### I PB, HFP, CHM7, MGO, CA ####[facility] (DEFAULT)[address] [place] [address] Potassium [Moles/Vol] 4.6 mmol/L Normal 3.5-5.0 [facility] Comment on above: Performed By: #### I PB, HFP, CHM7, MGO, CA ####[facility] (DEFAULT)[address] [place] [address] Sodium [Moles/Vol] 134 mmol/L Low 135-145 [facility] Comment on above: Performed By: #### I PB, HFP, CHM7, MGO, CA ####[facility] (DEFAULT)[address] [place] [address] Urea nitrogen [Mass/Vol] 25 mg/dL Normal 7-25 [facility] Comment on above: Performed By: #### I PB, HFP, CHM7, MGO, CA ####[facility] (DEFAULT)[address] [place] [address] Urea nitrogen/Creatinine [Mass ratio] 34 mg/mg Normal [facility] Comment on above: Performed By: #### I PB, HFP, CHM7, MGO, CA ####[facility] (DEFAULT)[address] [place] [address] HEPATIC FUNCTION PANELon Albumin [Mass/Vol] 2.8 g/dL Low 3.5-5.0 [facility] Comment on above: Performed By: #### I PB, HFP, CHM7, MGO, CA ####[facility] (DEFAULT)[address] [place] [address] ALP [Catalytic activity/Vol] 116 U/L Normal 32-126 [facility] Comment on above: Performed By: #### I PB, HFP, CHM7, MGO, CA ####[facility] (DEFAULT)[address] [place] [address] ALT [Catalytic activity/Vol] 24 U/L Normal 10-52 [facility] Comment on above: Performed By: #### I PB, HFP, CHM7, MGO, CA ####[facility] (DEFAULT)[address] [place] [address] AST [Catalytic activity/Vol] 16 U/L Normal 10-39 [facility] Comment on above: Performed By: #### I PB, HFP, CHM7, MGO, CA ####[facility] (DEFAULT)[address] [place] [address] Bilirubin [Mass/Vol] 1.3 mg/dL Normal <1.5 [facility] Comment on above: Performed By: #### I PB, HFP, CHM7, MGO, CA ####[facility] (DEFAULT)[address] [place] [address] Bilirubin.indirect [Mass/Vol] 0.6 mg/dL High <0.3 [facility] Comment on above: Performed By: #### I PB, HFP, CHM7, MGO, CA ####[facility] (DEFAULT)[address] [place] [address] Protein [Mass/Vol] 4.6 g/dL Low 6.4-8.3 [facility] Comment on above: Performed By: #### I PB, HFP, CHM7, MGO, CA ####[facility] (DEFAULT)[address] [place] [address] IONIZED CALCIUM, WHOLE BLOOD on 06-08-2024 ICA 4.20 mg/dL Low 4.60-5.30 [facility] Comment on above: Performed By: #### I CA ####[facility] (DEFAULT)[address] [place] [address] LACTATE, BLOODon 06-08-2024 Lactate, Blood 1.0 mmol/L Normal 0.5-1.6 [facility] Comment on above: Performed By: #### L ACT ####[facility] (DEFAULT)[address] [place] [address] MAGNESIUMon 06-08-2024 Magnesium [Mass/Vol] 1.4 mg/dL Low 1.6-2.6 [facility] Comment on above: Performed By: #### I PB, HFP, CHM7, MGO, CA ####[facility] (DEFAULT)[address] [place] [address] PHOSPHATE, INORGANICon 06-08 Phosphorous 1.5 mg/dL Low 2.2-4.6 [facility] Comment on above: Performed By: #### I PB, HFP, CHM7, MGO, CA ####[facility]DEFAULT[facility] [place] [address] PT,INR,PTTon 06-08-2024 aPTT Coag (Bld) [Time] 29.3 s Normal 24.0-34.3 [facility] Comment on above: Performed By: #### P TPTT ####[facility] (DEFAULT)[address] [place] [address] INR Coag (PPP) [Relative time] 1.1 {INR} Normal 0.9-1.1 [facility] Comment on above: Performed By: #### P TPTT ####[facility] (DEFAULT)[address] [place] [address] PT Coag (PPP) [Time] 14.6 s High 11.9-14.2 [facility] Comment on above: Performed By: #### P TPTT ####[facility] (DEFAULT)[address] [place] [address] TACROLIMUS LEVEL, TROUGH (NE E DRUG LEVEL)on 06-08-2024 Tacrolimus, Trough 7.9 ng/mL Normal Bone Veronique ow Transplant: 5.0-15.0 Kidney/Pancre atic Transplant: 0 to 3 months: 8.0-10.0, 3 to 12 months: 6.0-8.0, >12 months: 4.0-6.0 [facility] Comment on above: Order Comment: Pleas e draw at specified interval PRIOR to dose. Do not hold dose to wait for level. Specimens batched twice per day, (M-F) and once per day weekendsMethod performed is a chemiluminescent microparticle immunoasssay on the [employer] i2000.The range is based on experience at [facility] and users should be aware that target concentrations vary widely depending on concomitant therapy, time post-transplant, and desired degree of immunosuppression. Performed By: #### T ACRO ####[facility] (DEFAULT)[address] [place] [address] CALCIUMon 06-07-2024 Calcium [Mass/Vol] 8.0 mg/dL Low 8.6-10.5 [facility] Comment on above: Performed By: #### I PB, HFP, CHM7, MGO, CA ####[facility] (DEFAULT)[address] [place] [address] CBC,PLATELETSon 06-07-2024 Hematocrit (Bld) [Volume fraction] 32.4 % Low 39.6-48.8 [facility] Comment on above: Performed By: #### H EMOGC ####[facility] (DEFAULT)[address] [place] [address] Hemoglobin (Bld) [Mass/Vol] 10.7 g/dL Low 13.4-16.8 [facility] Comment on above: Performed By: #### H EMOGC ####[facility] (DEFAULT)[address] [place] [address] MCV (RBC) [Entitic vol] 92.6 fL Normal 79.0-94.5 [facility] Comment on above: Performed By: #### H EMOGC ####[facility] (DEFAULT)[address] [place] [address] Mean Cell Hgb 30.6 pg Normal 26.1-33.3 [facility] Comment on above: Performed By: #### H EMOGC ####[facility] (DEFAULT)[address] [place] [address] Mean Cell Hgb Conc 33.0 g/dL Normal 31.9-36.5 [facility] Comment on above: Performed By: #### H EMOGC ####[facility] (DEFAULT)[address] [place] [address] Platelet mean volume (Bld) [Entitic vol] 12.6 fL High 8.7-12.3 [facility] Comment on above: Performed By: #### H EMO ####[facility] (DEFAULT)[address] [place] [address] Platelets (Bld) [#/Vol] 68 10*3/uL Low 146-337 [facility] Comment on above: Performed By: #### H EMO ####[facility] (DEFAULT)[address] [place] [address] RBC (Bld) [#/Vol] 3.50 10*6/uL Low 4.38-5.83 [facility] Comment on above: Performed By: #### H EMO ####[facility] (DEFAULT)[address] [place] [address] RBC Distribution 15.7 % High 10.9-14.3 [facility] Comment on above: Performed By: #### H EMO ####[facility] (DEFAULT)[address] [place] [address] WBC (Bld) [#/Vol] 10.18 10*3/uL High 3.73-10.10 [facility] Comment on above: Performed By: #### H EMO ####[facility] (DEFAULT)[address] [place] [address] CHEM 7 (LYTES,BUN,CREA,GLUC) on 06-07-2024 Anion gap [Moles/Vol] 13 mmol/L Normal 7-17 [facility] Comment on above: Performed By: #### I PB, HFP, CHM7, MGO, CA ####[facility] (DEFAULT)[address] [place] [address] Chloride [Moles/Vol] 105 mmol/L Normal 98-108 [facility] Comment on above: Performed By: #### I PB, HFP, CHM7, MGO, CA ####[facility] (DEFAULT)[address] [place] [address] CO2 [Moles/Vol] 24 mmol/L Normal 21-31 [facility] Comment on above: Performed By: #### I PB, HFP, CHM7, MGO, CA ####[facility] (DEFAULT)[address] [place] [address] Creatinine [Mass/Vol] 0.82 mg/dL Normal 0.70-1.30 [facility] Comment on above: Performed By: #### I PB, HFP, CHM7, MGO, CA ####[facility] (DEFAULT)[address] [place] [address] eGFR, CKD-EPI, Male > Normal >=60 [facility] Comment on above: Result Comment: Repo rted eGFR is based on the CKD-EPI 2020 equation using creatinine, age, and sex. Performed By: #### I PB, HFP, CHM7, MGO, CA ####[facility] (DEFAULT)[address] [place] [address] Glucose [Mass/Vol] 106 mg/dL Normal Nonfastin -179 mg/dL; Fastin-99 [facility] Comment on above: Performed By: #### I PB, HFP, CHM7, MGO, CA ####[facility] (DEFAULT)[address] [place] [address], [place] [address] Osmolality [Osmolality] 298 mosm/kg Normal 278-305 [facility] Comment on above: Performed By: #### I PB, HFP, CHM7, MGO, CA ####[facility] (DEFAULT)[address] [place] [address] Potassium [Moles/Vol] 4.1 mmol/L Normal 3.5-5.0 [facility] Comment on above: Performed By: #### I PB, HFP, CHM7, MGO, CA ####[facility] (DEFAULT)[address] [place] [address] Sodium [Moles/Vol] 138 mmol/L Normal 135-145 [facility] Comment on above: Performed By: #### I PB, HFP, CHM7, MGO, CA ####[facility] (DEFAULT)[address] [place] [address] Urea nitrogen [Mass/Vol] 35 mg/dL High 7-25 [facility] Comment on above: Performed By: #### I PB, HFP, CHM7, MGO, CA ####[facility] (DEFAULT)[address] [facility] [place] [address] Urea nitrogen/Creatinine [Mass ratio] 43 mg/mg Normal [facility] Comment on above: Performed By: #### I PB, HFP, CHM7, MGO, CA ####[facility] (DEFAULT)[address] [place] [address] HEPATIC FUNCTION PANELon Albumin [Mass/Vol] 3.0 g/dL Low 3.5-5.0 [facility] Comment on above: Performed By: #### I PB, HFP, CHM7, MGO, CA ####[facility] (DEFAULT)[address] [place] [address] ALP [Catalytic activity/Vol] 108 U/L Normal 32-126 [facility] Comment on above: Performed By: #### I PB, HFP, CHM7, MGO, CA ####[facility] (DEFAULT)[address] [place] [address] ALT [Catalytic activity/Vol] 30 U/L Normal 10-52 [facility] Comment on above: Performed By: #### I PB, HFP, CHM7, MGO, CA ####[facility] (DEFAULT)[address] [place] [address] AST [Catalytic activity/Vol] 20 U/L Normal 10-39 [facility] Comment on above: Performed By: #### I PB, HFP, CHM7, MGO, CA ####[facility] (DEFAULT)[address] [place] [address] Bilirubin [Mass/Vol] 1.5 mg/dL High <1.5 [facility] Comment on above: Performed By: #### I PB, HFP, CHM7, MGO, CA ####[facility] (DEFAULT)[address] [place] [address] Bilirubin.indirect [Mass/Vol] 0.6 mg/dL High <0.3 [facility] Comment on above: Performed By: #### I PB, HFP, CHM7, MGO, CA ####[facility] (DEFAULT)[address] [place] [address] Protein [Mass/Vol] 4.8 g/dL Low 6.4-8.3 [facility] Comment on above: Performed By: #### I PB, HFP, CHM7, MGO, CA ####[facility] (DEFAULT)[address] [place] [address] IONIZED CALCIUM, WHOLE BLOOD on 06-07-2024 ICA 4.38 mg/dL Low 4.60-5.30 [facility] Comment on above: Performed By: #### I CA ####[facility] (DEFAULT)[address] [place] [address] LACTATE, BLOODon 06-07-2024 Lactate, Blood 1.0 mmol/L Normal 0.5-1.6 [facility] Comment on above: Performed By: #### L ACT ####[facility] (DEFAULT)[address] [place] [address] MAGNESIUMon 06-07-2024 Magnesium [Mass/Vol] 1.6 mg/dL Normal 1.6-2.6 [facility] Comment on above: Performed By: #### I PB, HFP, CHM7, MGO, CA ####[facility] (DEFAULT)[address] [place] [address] PHOSPHATE, INORGANICon 06-07 Phosphorous 1.8 mg/dL Low 2.2-4.6 [facility] Comment on above: Performed By: #### I PB, HFP, CHM7, MGO, CA ####[facility] (DEFAULT)[address] [place] [address] PT,INR,PTTon 06-07-2024 aPTT Coag (Bld) [Time] 29.5 s Normal 24.0-34.3 [facility] Comment on above: Performed By: #### P TPTT ####[facility] (DEFAULT)[address] [place] [address] INR Coag (PPP) [Relative time] 1.1 {INR} Normal 0.9-1.1 [facility] Comment on above: Performed By: #### P TPTT ####[facility] (DEFAULT)[address] [place] [address] PT Coag (PPP) [Time] 14.1 s Normal 11.9-14.2 [facility] Comment on above: Performed By: #### P TPTT ####[facility] (DEFAULT)[address] [place] [address] TACROLIMUS LEVEL, TROUGH (NE E DRUG LEVEL)on 06-07-2024 Tacrolimus, Trough 22.8 ng/mL Normal Bone Veronique ow Transplant: 5.0-15.0 Kidney/Pancre atic Transplant: 0 to 3 months: 8.0-10.0, 3 to 12 months: 6.0-8.0, >12 months: 4.0-6.0 [facility] Comment on above: Order Comment: Pleas e draw at specified interval PRIOR to dose. Do not hold dose to wait for level. Specimens batched twice per day, (M-F) and once per day weekendsMethod performed is a chemiluminescent microparticle immunoasssay on the 71lbs [employer] i2000.The range is based on experience at [facility] and users should be aware that target concentrations vary widely depending on concomitant therapy, time post-transplant, and desired degree of immunosuppression. Performed By: #### T ACRO ####[facility] (DEFAULT)[address] [place] [address] CALCIUMon 06-06-2024 Calcium [Mass/Vol] 8.2 mg/dL Low 8.6-10.5 [facility] Comment on above: Performed By: #### I PB, HFP, CHM7, MGO, CA ####[facility] (DEFAULT)[address] [place] [address] CBC,PLATELETSon 06-06-2024 Hematocrit (Bld) [Volume fraction] 30.4 % Low 39.6-48.8 [facility] Comment on above: Performed By: #### H EMOGC ####[facility] (DEFAULT)[address] [place] [address], [place] [address] Hemoglobin (Bld) [Mass/Vol] 10.3 g/dL Low 13.4-16.8 [facility] Comment on above: Performed By: #### H EMOGC ####[facility] (DEFAULT)[address] [place] [address], [place] [address] MCV (RBC) [Entitic vol] 92.7 fL Normal 79.0-94.5 [facility] Comment on above: Performed By: #### H EMOGC ####[facility] (DEFAULT)[address] [place] [address] Mean Cell Hgb 31.4 pg Normal 26.1-33.3 [facility] Comment on above: Performed By: #### H EMOGC ####[facility] (DEFAULT)[address] [place] [address] Mean Cell Hgb Conc 33.9 g/dL Normal 31.9-36.5 [facility] Comment on above: Performed By: #### H EMOGC ####[facility] (DEFAULT)[address] [place] [address] Mean Platelet Volume Normal [facility] Comment on above: Result Comment: Not measured Performed By: #### H EMO ####[facility] (DEFAULT)[address] [place] [address] Platelets (Bld) [#/Vol] 74 10*3/uL Low 146-337 [facility] Comment on above: Performed By: #### H EMO ####[facility] (DEFAULT)[address] [place] [address] RBC (Bld) [#/Vol] 3.28 10*6/uL Low 4.38-5.83 [facility] Comment on above: Performed By: #### H EMO ####[facility] (DEFAULT)[address] [place] [address] RBC Distribution 16.1 % High 10.9-14.3 [facility] Comment on above: Performed By: #### H EMO ####[facility] (DEFAULT)[address] [place] [address] WBC (Bld) [#/Vol] 13.89 10*3/uL High 3.73-10.10 [facility] Comment on above: Performed By: #### H EMO ####[facility] (DEFAULT)[address] [place] [address] CHEM 7 (LYTES,BUN,CREA,GLUC) on 06-06-2024 Anion gap [Moles/Vol] 13 mmol/L Normal 7-17 [facility] Comment on above: Performed By: #### I PB, HFP, CHM7, MGO, CA ####[facility] (DEFAULT)[address] [place] [address] Chloride [Moles/Vol] 104 mmol/L Normal 98-108 [facility] Comment on above: Performed By: #### I PB, HFP, CHM7, MGO, CA ####[facility] (DEFAULT)[address] [place] [address] CO2 [Moles/Vol] 25 mmol/L Normal 21-31 [facility] Comment on above: Performed By: #### I PB, HFP, CHM7, MGO, CA ####[facility] (DEFAULT)[address] [place] [address] Creatinine [Mass/Vol] 1.10 mg/dL Normal 0.70-1.30 [facility] Comment on above: Performed By: #### I PB, HFP, CHM7, MGO, CA ####[facility] (DEFAULT)[address] [place] [address] GFR/1.73 sq M.predicted among non-blacks MDRD (S/P/Bld) [Vol rate/Area] 77 mL/min/{1.73_m2} Normal >=60 [facility] Comment on above: Result Comment: Repo rted eGFR is based on the CKD-EPI 2020 equation using creatinine, age, and sex. Performed By: #### I PB, HFP, CHM7, MGO, CA ####[facility] (DEFAULT)[address] [place] [address] Glucose [Mass/Vol] 87 mg/dL Normal Nonfastin -179 mg/dL; Fastin-99 [facility] Comment on above: Performed By: #### I PB, HFP, CHM7, MGO, CA ####[facility] (DEFAULT)[address] [place] [address] Osmolality [Osmolality] 298 mosm/kg Normal 278-305 [facility] Comment on above: Performed By: #### I PB, HFP, CHM7, MGO, CA ####[facility] (DEFAULT)[address] [place] [address] Potassium [Moles/Vol] 3.9 mmol/L Normal 3.5-5.0 [facility] Comment on above: Performed By: #### I PB, HFP, CHM7, MGO, CA ####[facility] (DEFAULT)[address] [place] [address] Sodium [Moles/Vol] 138 mmol/L Normal 135-145 [facility] Comment on above: Performed By: #### I PB, HFP, CHM7, MGO, CA ####[facility] (DEFAULT)[address] [place] [address] Urea nitrogen [Mass/Vol] 40 mg/dL High 7-25 [facility] Comment on above: Performed By: #### I PB, HFP, CHM7, MGO, CA ####[facility] (DEFAULT)[address] [place] [address] Urea nitrogen/Creatinine [Mass ratio] 36 mg/mg Normal [facility] Comment on above: Performed By: #### I PB, HFP, CHM7, MGO, CA ####[facility] (DEFAULT)[address] [place] [address] HEPATIC FUNCTION PANELon Albumin [Mass/Vol] 3.1 g/dL Low 3.5-5.0 [facility] Comment on above: Performed By: #### I PB, HFP, CHM7, MGO, CA ####[facility] (DEFAULT)[address] [place] [address] ALP [Catalytic activity/Vol] 107 U/L Normal 32-126 [facility] Comment on above: Performed By: #### I PB, HFP, CHM7, MGO, CA ####[facility] (DEFAULT)[address] [place] [address] ALT [Catalytic activity/Vol] 39 U/L Normal 10-52 [facility] Comment on above: Performed By: #### I PB, HFP, CHM7, MGO, CA ####[facility] (DEFAULT)[address] [place] [address] AST [Catalytic activity/Vol] 27 U/L Normal 10-39 [facility] Comment on above: Performed By: #### I PB, HFP, CHM7, MGO, CA ####[facility] (DEFAULT)[address] [place] [address] Bilirubin [Mass/Vol] 1.8 mg/dL High <1.5 [facility] Comment on above: Performed By: #### I PB, HFP, CHM7, MGO, CA ####[facility] (DEFAULT)[address] [place] [address] Bilirubin.indirect [Mass/Vol] 0.8 mg/dL High <0.3 [facility] Comment on above: Performed By: #### I PB, HFP, CHM7, MGO, CA ####[facility] (DEFAULT)[address] [place] [address] Protein [Mass/Vol] 4.9 g/dL Low 6.4-8.3 [facility] Comment on above: Performed By: #### I PB, HFP, CHM7, MGO, CA ####[facility] (DEFAULT)[address] [place] [address] IONIZED CALCIUM, WHOLE BLOOD on 06-06-2024 ICA 3.90 mg/dL Low 4.60-5.30 [facility] Comment on above: Performed By: #### I CA ####[facility] (DEFAULT)[address] [place] [address] LACTATE, BLOODon 06-06-2024 Lactate, Blood 1.1 mmol/L Normal 0.5-1.6 [facility] Comment on above: Performed By: #### L ACT ####[facility] (DEFAULT)[address] [place] [address] MAGNESIUMon 06-06-2024 Magnesium [Mass/Vol] 1.8 mg/dL Normal 1.6-2.6 [facility] Comment on above: Performed By: #### I PB, HFP, CHM7, MGO, CA ####[facility] (DEFAULT)[address] [place] [address] PHOSPHATE, INORGANICon 06-06 Phosphorous 2.4 mg/dL Normal 2.2-4.6 [facility] Comment on above: Performed By: #### I PB, HFP, CHM7, MGO, CA ####[facility] (DEFAULT)[address] [place] [address] PT,INR,PTTon 06-06-2024 aPTT Coag (Bld) [Time] 30.6 s Normal 24.0-34.3 [facility] Comment on above: Performed By: #### P TPTT ####[facility] (DEFAULT)[address] [place] [address] INR Coag (PPP) [Relative time] 1.1 {INR} Normal 0.9-1.1 [facility] Comment on above: Performed By: #### P TPTT ####[facility] (DEFAULT)[address] [place] [address] PT Coag (PPP) [Time] 14.5 s High 11.9-14.2 [facility] Comment on above: Performed By: #### P TPTT ####[facility] (DEFAULT)[address] [place] [address] TACROLIMUS LEVEL, TROUGH (NE E DRUG LEVEL)on 06-06-2024 Tacrolimus, Trough 5.6 ng/mL Normal Bone Veronique ow Transplant: 5.0-15.0 Kidney/Pancre atic Transplant: 0 to 3 months: 8.0-10.0, 3 to 12 months: 6.0-8.0, >12 months: 4.0-6.0 [facility] Comment on above: Order Comment: Pleas e draw at specified interval PRIOR to dose. Do not hold dose to wait for level. Specimens batched twice per day, (M-F) and once per day weekendsMethod performed is a chemiluminescent microparticle immunoasssay on the [employer] i2000.The range is based on experience at [facility] and users should be aware that target concentrations vary widely depending on concomitant therapy, time post-transplant, and desired degree of immunosuppression. Performed By: #### T ACRO ####[facility] (DEFAULT)[address] [place] [address] CHEM 7 (LYTES,BUN,CREA,GLUC) on 06-05-2024 Anion gap [Moles/Vol] 16 mmol/L Normal 7-17 [facility] Comment on above: Performed By: #### C HM7 ####[facility] (DEFAULT)[address] [place] [address] Chloride [Moles/Vol] 103 mmol/L Normal 98-108 [facility] Comment on above: Performed By: #### C HM7 ####[facility] (DEFAULT)[address] [place] [address], [place] [address] CO2 [Moles/Vol] 22 mmol/L Normal 21-31 [facility] Comment on above: Performed By: #### C HM7 ####[facility] (DEFAULT)[address] [place] [address] Creatinine [Mass/Vol] 1.13 mg/dL Normal 0.70-1.30 [facility] Comment on above: Performed By: #### C HM7 ####[facility] (DEFAULT)[address] [place] [address] GFR/1.73 sq M.predicted among non-blacks MDRD (S/P/Bld) [Vol rate/Area] 75 mL/min/{1.73_m2} Normal >=60 [facility] Comment on above: Result Comment: Repo rted eGFR is based on the CKD-EPI 2020 equation using creatinine, age, and sex. Performed By: #### C HM7 ####[facility] (DEFAULT)[address] [place] [address] Glucose [Mass/Vol] 113 mg/dL Normal Nonfastin -179 mg/dL; Fastin-99 [facility] Comment on above: Performed By: #### C HM7 ####[facility] (DEFAULT)[address] [place] [address] Osmolality [Osmolality] 297 mosm/kg Normal 278-305 [facility] Comment on above: Performed By: #### C HM7 ####[facility] (DEFAULT)[address] [place] [address] Potassium [Moles/Vol] 3.8 mmol/L Normal 3.5-5.0 [facility] Comment on above: Performed By: #### C HM7 ####[facility] (DEFAULT)[address] [place] [address] Sodium [Moles/Vol] 137 mmol/L Normal 135-145 [facility] Comment on above: Performed By: #### C HM7 ####[facility] (DEFAULT)[address] [place] [address] Urea nitrogen [Mass/Vol] 38 mg/dL High 7-25 [facility] Comment on above: Performed By: #### C HM7 ####[facility] (DEFAULT)[address] [place] [address] Urea nitrogen/Creatinine [Mass ratio] 34 mg/mg Normal [facility] Comment on above: Performed By: #### C HM7 ####[facility] (DEFAULT)[address] [place] [address] TACROLIMUS LEVEL, TROUGH (NE E DRUG LEVEL)on 06-05-2024 Tacrolimus, Trough 5.8 ng/mL Normal Bone Veronique ow Transplant: 5.0-15.0 Kidney/Pancre atic Transplant: 0 to 3 months: 8.0-10.0, 3 to 12 months: 6.0-8.0, >12 months: 4.0-6.0 [facility] Comment on above: Order Comment: Pleas e draw at specified interval PRIOR to dose. Do not hold dose to wait for level. Specimens batched twice per day, (M-F) and once per day weekendsMethod performed is a chemiluminescent microparticle immunoasssay on the 71lbs [employer] i2000.The range is based on experience at [facility] and users should be aware that target concentrations vary widely depending on concomitant therapy, time post-transplant, and desired degree of immunosuppression. Performed By: #### T ACRO ####[facility] (DEFAULT)[address] [place] [address] ARTERIAL BLOOD GAS PLUS LACT ATEon 06-04-2024 Base Excess -5.7 mmol/L Low -3.0-3.0 [facility] Comment on above: Performed By: #### G AS5L ####[facility] (DEFAULT)[address] [place] [address] FIO2 21 % Normal [facility] Comment on above: Performed By: #### G AS5L ####[facility] (DEFAULT)[address] [place] [address] HCO3 (Bld) [Moles/Vol] 19 mmol/L Low 22-28 [facility] Comment on above: Performed By: #### G AS5L ####[facility] (DEFAULT)[address] [place] [address] Lactate, Whole Blood 1.1 mmol/L Normal 0.5-1.6 [facility] Comment on above: Performed By: #### G AS5L ####[facility] (DEFAULT)[address] [place] [address] Oxygen saturation in Blood 97 % Normal 94-98 [facility] Comment on above: Performed By: #### G AS5L ####[facility] (DEFAULT)[address] [place] [address] pCO2 28 mm Hg Low 32-48 [facility] Comment on above: Performed By: #### G AS5L ####[facility] (DEFAULT)[address] [place] [address] PF Ratio [address] [facility] Comment on above: Performed By: #### G AS5L ####[facility] (DEFAULT)[address] [place] [address] pH, Arterial 7.43 Normal 7.35-7.45 [facility] Comment on above: Performed By: #### G AS5L ####[facility] (DEFAULT)[address] [place] [address], [place] [address] pO2 75 mm Hg Low 83-108 [facility] Comment on above: Performed By: #### G AS5L ####[facility] (DEFAULT)[address] [place] [address], [place] [address] Specimen type Nom (Spec) Arterial Normal [facility] Comment on above: Performed By: #### G AS5L ####[facility] (DEFAULT)[address] [place] [address], [place] [address] CALCIUMon 06-04-2024 Calcium [Mass/Vol] 7.8 mg/dL Low 8.6-10.5 [facility] Comment on above: Performed By: #### C HM7, IPB, HFP, MGO, CA ####[facility] (DEFAULT)[address] [place] [address] Calcium [Mass/Vol] 7.7 mg/dL Low 8.6-10.5 [facility] Comment on above: Performed By: #### I PB, HFP, CHM7, PALB, MGO, CA ####[facility] (DEFAULT)[address] [place] [address], [place] [address] CBC,PLATELETSon 06-04-2024 Hematocrit (Bld) [Volume fraction] 26.6 % Low 39.6-48.8 [facility] Comment on above: Performed By: #### H EMOGC ####[facility] (DEFAULT)[address] [place] [address] Hemoglobin (Bld) [Mass/Vol] 9.3 g/dL Low 13.4-16.8 [facility] Comment on above: Performed By: #### H EMOGC ####[facility] (DEFAULT)[address] [place] [address] MCV (RBC) [Entitic vol] 89.0 fL Normal 79.0-94.5 [facility] Comment on above: Performed By: #### H EMOGC ####[facility] (DEFAULT)[address] [place] [address] Mean Cell Hgb 31.1 pg Normal 26.1-33.3 [facility] Comment on above: Performed By: #### H EMOGC ####[facility] (DEFAULT)[address] [place] [address] Mean Cell Hgb Conc 35.0 g/dL Normal 31.9-36.5 [facility] Comment on above: Performed By: #### H EMOGC ####[facility] (DEFAULT)[address] [place] [address] Platelet mean volume (Bld) [Entitic vol] 11.7 fL Normal 8.7-12.3 [facility] Comment on above: Performed By: #### H EMOGC ####[facility] (DEFAULT)[address] [place] [address] Platelets (Bld) [#/Vol] 92 10*3/uL Low 146-337 [facility] Comment on above: Performed By: #### H EMOGC ####[facility] (DEFAULT)[address] [place] [address] RBC (Bld) [#/Vol] 2.99 10*6/uL Low 4.38-5.83 [facility] Comment on above: Performed By: #### H EMOGC ####[facility] (DEFAULT)[address] [place] [address] RBC Distribution 15.8 % High 10.9-14.3 [facility] Comment on above: Performed By: #### H EMOGC ####[facility] (DEFAULT)[address] [place] [address] WBC (Bld) [#/Vol] 16.58 10*3/uL High 3.73-10.10 [facility] Comment on above: Performed By: #### H EMOGC ####[facility] (DEFAULT)[address] [place] [address] Hematocrit (Bld) [Volume fraction] 26.8 % Low 39.6-48.8 [facility] Comment on above: Performed By: #### H EMOGC ####[facility] (DEFAULT)[address] [place] [address] Hemoglobin (Bld) [Mass/Vol] 9.6 g/dL Low 13.4-16.8 [facility] Comment on above: Performed By: #### H EMOGC ####[facility] (DEFAULT)[address] [place] [address] MCV (RBC) [Entitic vol] 86.7 fL Normal 79.0-94.5 [facility] Comment on above: Performed By: #### H EMOGC ####[facility] (DEFAULT)[address] [place] [address] Mean Cell Hgb 31.1 pg Normal 26.1-33.3 [facility] Comment on above: Performed By: #### H EMOGC ####[facility] (DEFAULT)[address] [place] [address] Mean Cell Hgb Conc 35.8 g/dL Normal 31.9-36.5 [facility] Comment on above: Performed By: #### H EMOGC ####[facility] (DEFAULT)[address] [place] [address] Mean Platelet Volume Normal [facility] Comment on above: Result Comment: Not measured Performed By: #### H EMOGC ####[facility] (DEFAULT)[address] [place] [address] Platelets (Bld) [#/Vol] 90 10*3/uL Low 146-337 [facility] Comment on above: Result Comment: This is an appended report. These results have been appended to a previously preliminary verified report. Performed By: #### H EMOGC ####[facility] (DEFAULT)[address] [place] [address] RBC (Bld) [#/Vol] 3.09 10*6/uL Low 4.38-5.83 [facility] Comment on above: Performed By: #### H EMOGC ####[facility] (DEFAULT)[address] [place] [address] RBC Distribution 15.5 % High 10.9-14.3 [facility] Comment on above: Performed By: #### H EMOGC ####[facility] (DEFAULT)[address] [place] [address] WBC (Bld) [#/Vol] 18.02 10*3/uL High 3.73-10.10 [facility] Comment on above: Performed By: #### H EMOGC ####[facility] (DEFAULT)[address] [place] [address] Hematocrit (Bld) [Volume fraction] 19.8 % Low 39.6-48.8 [facility] Comment on above: Performed By: #### H EMOGC ####[facility] (DEFAULT)[address] [place] [address] Hemoglobin (Bld) [Mass/Vol] 6.8 g/dL Critically low 13.4-16.8 [facility] Comment on above: Result Comment: This result has been called to Cuate James RN by [email or web address] on 06/04/2024 01:00:11, and has been read back. Performed By: #### H EMOGC ####[facility] (DEFAULT)[address] [place] [address] MCV (RBC) [Entitic vol] 91.2 fL Normal 79.0-94.5 [facility] Comment on above: Performed By: #### H EMOGC ####[facility] (DEFAULT)[address] [place] [address] Mean Cell Hgb 31.3 pg Normal 26.1-33.3 [facility] Comment on above: Performed By: #### H EMOGC ####[facility] (DEFAULT)[address] [place] [address] Mean Cell Hgb Conc 34.3 g/dL Normal 31.9-36.5 [facility] Comment on above: Performed By: #### H EMOGC ####[facility] (DEFAULT)[address] [place] [address] Platelet mean volume (Bld) [Entitic vol] 12.3 fL Normal 8.7-12.3 [facility] Comment on above: Performed By: #### H EMOGC ####[facility] (DEFAULT)[address] [place] [address] Platelets (Bld) [#/Vol] 108 10*3/uL Low 146-337 [facility] Comment on above: Performed By: #### H EMOGC ####[facility] (DEFAULT)[address] [place] [address] RBC (Bld) [#/Vol] 2.17 10*6/uL Low 4.38-5.83 [facility] Comment on above: Performed By: #### H EMOGC ####[facility] (DEFAULT)[address] [place] [address] RBC Distribution 15.9 % High 10.9-14.3 [facility] Comment on above: Performed By: #### H EMOGC ####[facility] (DEFAULT)[address] [place] [address] WBC (Bld) [#/Vol] 18.98 10*3/uL High 3.73-10.10 [facility] Comment on above: Performed By: #### [facility] ####[facility] (DEFAULT)[address] [place] [address] CHEM 7 (LYTES,BUN,CREA,GLUC) on 06-04-2024 Anion gap [Moles/Vol] 14 mmol/L Normal 7-17 [facility] Comment on above: Performed By: #### C HM7, IPB, HFP, MGO, CA ####[facility] (DEFAULT)[address] [place] [address] Chloride [Moles/Vol] 107 mmol/L Normal 98-108 [facility] Comment on above: Performed By: #### C HM7, IPB, HFP, MGO, CA ####[facility] (DEFAULT)[address] [place] [address] CO2 [Moles/Vol] 20 mmol/L Low 21-31 [facility] Comment on above: Performed By: #### C HM7, IPB, HFP, MGO, CA ####[facility] (DEFAULT)[address] [place] [address] Creatinine [Mass/Vol] 1.24 mg/dL Normal 0.70-1.30 [facility] Comment on above: Performed By: #### C HM7, IPB, HFP, MGO, CA ####[facility] (DEFAULT)[address] [place] [address] GFR/1.73 sq M.predicted among non-blacks MDRD (S/P/Bld) [Vol rate/Area] 67 mL/min/{1.73_m2} Normal >=60 [facility] Comment on above: Result Comment: Repo rted eGFR is based on the CKD-EPI 2021 equation using creatinine, age, and sex. Performed By: #### C HM7, IPB, HFP, MGO, CA ####[facility] (DEFAULT)[address] [place] [address] Glucose [Mass/Vol] 92 mg/dL Normal Nonfastin -179 mg/dL; Fastin-99 [facility] Comment on above: Performed By: #### C HM7, IPB, HFP, MGO, CA ####[facility] (DEFAULT)[address] [place] [address] Osmolality [Osmolality] 296 mosm/kg Normal 278-305 [facility] Comment on above: Performed By: #### C HM7, IPB, HFP, MGO, CA ####[facility] (DEFAULT)[address] [place] [address] Potassium [Moles/Vol] 3.1 mmol/L Low 3.5-5.0 [facility] Comment on above: Performed By: #### C HM7, IPB, HFP, MGO, CA ####[facility] (DEFAULT)[address] [place] [address] Sodium [Moles/Vol] 138 mmol/L Normal 135-145 [facility] Comment on above: Performed By: #### C HM7, IPB, HFP, MGO, CA ####[facility] (DEFAULT)[address] [place] [address] Urea nitrogen [Mass/Vol] 37 mg/dL High 7-25 [facility] Comment on above: Performed By: #### C HM7, IPB, HFP, MGO, CA ####[facility] (DEFAULT)[address] [place] [address] Urea nitrogen/Creatinine [Mass ratio] 30 mg/mg Normal [facility] Comment on above: Performed By: #### C HM7, IPB, HFP, MGO, CA ####[facility] (DEFAULT)[address] [place] [address] Anion gap [Moles/Vol] 15 mmol/L Normal 7-17 [facility] Comment on above: Performed By: #### I PB, HFP, CHM7, PALB, MGO, CA ####[facility] (DEFAULT)[address] [place] [address] Chloride [Moles/Vol] 106 mmol/L Normal 98-108 [facility] Comment on above: Performed By: #### I PB, HFP, CHM7, PALB, MGO, CA ####[facility] (DEFAULT)[address] [place] [address] CO2 [Moles/Vol] 19 mmol/L Low 21-31 [facility] Comment on above: Performed By: #### I PB, HFP, CHM7, PALB, MGO, CA ####[facility] (DEFAULT)[address] [place] [address] Creatinine [Mass/Vol] 1.29 mg/dL Normal 0.70-1.30 [facility] Comment on above: Performed By: #### I PB, HFP, CHM7, PALB, MGO, CA ####[facility] (DEFAULT)[address] [place] [address] GFR/1.73 sq M.predicted among non-blacks MDRD (S/P/Bld) [Vol rate/Area] 64 mL/min/{1.73_m2} Normal >=60 [facility] Comment on above: Result Comment: Repo rted eGFR is based on the CKD-EPI 2020 equation using creatinine, age, and sex. Performed By: #### I PB, HFP, CHM7, PALB, MGO, CA ####[facility] (DEFAULT)[address] [place] [address] Glucose [Mass/Vol] 98 mg/dL Normal Nonfastin -179 mg/dL; Fastin-99 [facility] Comment on above: Performed By: #### I PB, HFP, CHM7, PALB, MGO, CA ####[facility] (DEFAULT)[address] [place] [address] Osmolality [Osmolality] 294 mosm/kg Normal 278-305 [facility] Comment on above: Performed By: #### I PB, HFP, CHM7, PALB, MGO, CA ####[facility] (DEFAULT)[address] [place] [address] Potassium [Moles/Vol] 4.1 mmol/L Normal 3.5-5.0 [facility] Comment on above: Performed By: #### I PB, HFP, CHM7, PALB, MGO, CA ####[facility] (DEFAULT)[address] [place] [address] Sodium [Moles/Vol] 136 mmol/L Normal 135-145 [facility] Comment on above: Performed By: #### I PB, HFP, CHM7, PALB, MGO, CA ####[facility] (DEFAULT)[address] [place] [address] Urea nitrogen [Mass/Vol] 38 mg/dL High 7-25 [facility] Comment on above: Performed By: #### I PB, HFP, CHM7, PALB, MGO, CA ####[facility] (DEFAULT)[address] [place] [address] Urea nitrogen/Creatinine [Mass ratio] 29 mg/mg Normal [facility] Comment on above: Performed By: #### I PB, HFP, CHM7, PALB, MGO, CA ####[facility] (DEFAULT)[address] [place] [address] HEPATIC FUNCTION PANELon Albumin [Mass/Vol] 2.7 g/dL Low 3.5-5.0 [facility] Comment on above: Performed By: #### C HM7, IPB, HFP, MGO, CA ####[facility] (DEFAULT)[address] [place] [address] ALP [Catalytic activity/Vol] 98 U/L Normal 32-126 [facility] Comment on above: Performed By: #### C HM7, IPB, HFP, MGO, CA ####[facility] (DEFAULT)[address] [place] [address] ALT [Catalytic activity/Vol] 52 U/L Normal 10-52 [facility] Comment on above: Performed By: #### C HM7, IPB, HFP, MGO, CA ####[facility] (DEFAULT)[address] [place] [address] AST [Catalytic activity/Vol] 50 U/L High 10-39 [facility] Comment on above: Performed By: #### C HM7, IPB, HFP, MGO, CA ####[facility] (DEFAULT)[address] [place] [address] Bilirubin [Mass/Vol] 2.1 mg/dL High <1.5 [facility] Comment on above: Performed By: #### C HM7, IPB, HFP, MGO, CA ####[facility] (DEFAULT)[address] [place] [address] Bilirubin.indirect [Mass/Vol] 1.1 mg/dL High <0.3 [facility] Comment on above: Performed By: #### C HM7, IPB, HFP, MGO, CA ####[facility] (DEFAULT)[address] [place] [address] Protein [Mass/Vol] 4.4 g/dL Low 6.4-8.3 [facility] Comment on above: Performed By: #### C HM7, IPB, HFP, MGO, CA ####[facility] (DEFAULT)[address] [place] [address] Albumin [Mass/Vol] 2.8 g/dL Low 3.5-5.0 [facility] Comment on above: Performed By: #### I PB, HFP, CHM7, PALB, MGO, CA ####[facility] (DEFAULT)[address] [place] [address] ALP [Catalytic activity/Vol] 86 U/L Normal 32-126 [facility] Comment on above: Performed By: #### I PB, HFP, CHM7, PALB, MGO, CA ####[facility] (DEFAULT)[address] [place] [address] ALT [Catalytic activity/Vol] 79 U/L High 10-52 [facility] Comment on above: Performed By: #### I PB, HFP, CHM7, PALB, MGO, CA ####[facility] (DEFAULT)[address] [place] [address] AST [Catalytic activity/Vol] 151 U/L High 10-39 [facility] Comment on above: Performed By: #### I PB, HFP, CHM7, PALB, MGO, CA ####[facility] (DEFAULT)[address] [place] [address] Bilirubin [Mass/Vol] 2.8 mg/dL High <1.5 [facility] Comment on above: Performed By: #### I PB, HFP, CHM7, PALB, MGO, CA ####[facility] (DEFAULT)[address] [place] [address] Bilirubin.indirect [Mass/Vol] 1.7 mg/dL High <0.3 [facility] Comment on above: Performed By: #### I PB, HFP, CHM7, PALB, MGO, CA ####[facility] (DEFAULT)[address] [place] [address] Protein [Mass/Vol] 3.8 g/dL Low 6.4-8.3 [facility] Comment on above: Performed By: #### I PB, HFP, CHM7, PALB, MGO, CA ####[facility] (DEFAULT)[address] [place] [address] IONIZED CALCIUM, WHOLE BLOOD on 06-04-2024 ICA 4.30 mg/dL Low 4.60-5.30 [facility] Comment on above: Performed By: #### I CA ####[facility] (DEFAULT)[address] [place] [address] ICA 4.28 mg/dL Low 4.60-5.30 [facility] Comment on above: Performed By: #### I CA ####[facility] (DEFAULT)[address] [place] [address] LACTATE, BLOODon 06-04-2024 Lactate, Blood 0.8 mmol/L Normal 0.5-1.6 [facility] Comment on above: Performed By: #### L ACT ####[facility] (DEFAULT)[address] [place] [address] Lactate, Blood 1.2 mmol/L Normal 0.5-1.6 [facility] Comment on above: Performed By: #### L ACT ####[facility] (DEFAULT)[address] [place] [address] MAGNESIUMon 06-04-2024 Magnesium [Mass/Vol] 2.2 mg/dL Normal 1.6-2.6 [facility] Comment on above: Performed By: #### C HM7, IPB, HFP, MGO, CA ####[facility] (DEFAULT)[address] [place] [address] Magnesium [Mass/Vol] 2.0 mg/dL Normal 1.6-2.6 [facility] Comment on above: Performed By: #### I PB, HFP, CHM7, PALB, MGO, CA ####[facility] (DEFAULT)[address] [place] [address] PHOSPHATE, INORGANICon 06-04 Phosphorous 2.9 mg/dL Normal 2.2-4.6 [facility] Comment on above: Performed By: #### C HM7, IPB, HFP, MGO, CA ####[facility] (DEFAULT)[address] [place] [address] Phosphorous 3.6 mg/dL Normal 2.2-4.6 [facility] Comment on above: Performed By: #### I PB, HFP, CHM7, PALB, MGO, CA ####[facility] (DEFAULT)[address] [place] [address] PREALBUMINon 06-04-2024 Prealbumin [Mass/Vol] 7 mg/dL Low 17-34 [facility] Comment on above: Performed By: #### I PB, HFP, CHM7, PALB, MGO, CA ####[facility] (DEFAULT)[address] [place] [address] PT,INR,PTTon 06-04-2024 aPTT Coag (Bld) [Time] 33.6 s Normal 24.0-34.3 [facility] Comment on above: Performed By: #### P TPTT ####[facility] (DEFAULT)[address] [place] [address] INR Coag (PPP) [Relative time] 1.4 {INR} High 0.9-1.1 [facility] Comment on above: Performed By: #### P TPTT ####[facility] (DEFAULT)[address] [place] [address] PT Coag (PPP) [Time] 17.5 s High 11.9-14.2 [facility] Comment on above: Performed By: #### P TPTT ####[facility] (DEFAULT)[address] [place] [address] aPTT Coag (Bld) [Time] 39.2 s High 24.0-34.3 [facility] Comment on above: Performed By: #### P TPTT ####[facility] (DEFAULT)[address] [place] [address] INR Coag (PPP) [Relative time] 2.0 {INR} High 0.9-1.1 [facility] Comment on above: Performed By: #### P TPTT ####[facility] (DEFAULT)[address] [place] [address] PT Coag (PPP) [Time] 22.4 s High 11.9-14.2 [facility] Comment on above: Performed By: #### P TPTT ####[facility] (DEFAULT)[address] [place] [address], [place] [address] TACROLIMUS LEVEL, TROUGH (NE E DRUG LEVEL)on 06-04-2024 Tacrolimus, Trough 7.4 ng/mL Normal Bone Veronique ow Transplant: 5.0-15.0 Kidney/Pancre atic Transplant: 0 to 3 months: 8.0-10.0, 3 to 12 months: 6.0-8.0, >12 months: 4.0-6.0 [facility] Comment on above: Order Comment: Pleas e draw at specified interval PRIOR to dose. Do not hold dose to wait for level. Specimens batched twice per day, (M-F) and once per day weekendsMethod performed is a chemiluminescent microparticle immunoasssay on the [employer] i2000.The range is based on experience at [facility] and users should be aware that target concentrations vary widely depending on concomitant therapy, time post-transplant, and desired degree of immunosuppression. Performed By: #### T ACRO ####[facility] (DEFAULT)[address] [place] [id number] URINE CULTUREon 06-04-2024 Bacteria identified Cx Nom (U) No Growth Normal [facility] Comment on above: Order Comment: For i ndwelling catheters, specimen collection is acceptable on catheter day 1 and 2 only. Dumont top vacutainer. Urine must be to the fill line to process (4mls). If minimum volume, send urine in a yellow top vacutainer tube. Performed By: #### U R ####[facility] (DEFAULT)[address] [place] [address] ACID FAST CULTUREon 06-04-19 25 Bacteria identified Cx Nom (Unsp spec) NO GROWTH DAY 42 OF 42 Normal [facility] Comment on above: Performed By: #### A FB ####[facility] (DEFAULT)[address] [place] [address] Fluorochrome Stain No acid Fast Bacillu s Seen Normal [facility] Comment on above: Performed By: #### A FB ####[facility] (DEFAULT)[address] [place] [address], [place] [address] ANAEROBE CULTUREon 5 Bacteria identified Cx Nom (Unsp spec) No anaerobic growth Normal [facility] Comment on above: Order Comment: Colle ct fluids or tissues in a sterile container. If collecting swabs, must be collected in a Port-A-Cul tube. Performed By: #### A MICHAELA ####[facility] (DEFAULT)[address] [place] [address], [place] [address] ARTERIAL BLOOD GAS (FULL SADLER EL)on 06-03-2024 Base Excess -5.9 mmol/L Low -3.0-3.0 [facility] Comment on above: Performed By: #### G DREAD ####[facility] (DEFAULT)[address] [place] [address], [place] [address] Carboxyhemoglobin 1.7 % High <=1.5 [facility] Comment on above: Performed By: #### G DREAD ####[facility] (DEFAULT)[address] [place] [address], [place] [address] [facility] Comment on above: Result Comment: 2L N C Performed By: #### G DREAD ####[facility] (DEFAULT)[address] [place] [address] Glucose [Mass/Vol] 111 mg/dL Normal Nonfastin g Glucose: 70-179 [facility] Comment on above: Performed By: #### Jhon [place] ####[facility] (DEFAULT)[address] [place] [address], [place] [address] HCO3 (Bld) [Moles/Vol] 18 mmol/L Low 22-28 [facility] Comment on above: Performed By: #### Jhon [place] ####[facility] (DEFAULT)[address] [place] [address], [place] [address] Hematocrit (Bld) [Volume fraction] 24 % Low 40-50 [facility] Comment on above: Performed By: #### Jhon [place] ####[facility] (DEFAULT)[address] [place] [address], [place] [address] Hemoglobin (Bld) [Mass/Vol] 8.0 g/dL Low 13.4-16.8 [facility] Comment on above: Performed By: ###Lowell [place] ####[facility] (DEFAULT)[address] [place] [address], [place] [address] Ionized Calcium, Whole Blood 4.79 mg/dL Normal 4.60-5.30 [facility] Comment on above: Performed By: #### Jhon [place] ####[facility] (DEFAULT)[address] [place] [address], [place] [address] Lactate, Whole Blood 1.6 mmol/L Normal 0.5-1.6 [facility] Comment on above: Performed By: #### Jhon [place] ####[facility] (DEFAULT)[address] [place] [address], [place] [address] Methemoglobin 0.8 % Normal <=1.5 [facility] Comment on above: Performed By: #### Jhon [place] ####[facility] (DEFAULT)[address] [place] [address], [place] [address] Oxygen saturation in Blood 97 % Normal 94-98 [facility] Comment on above: Performed By: #### Jhon [place] ####[facility] (DEFAULT)[address] [place], [place] [address], [place] [address] Oxyhemoglobin 94 % Normal 94-98 [facility] Comment on above: Performed By: #### Jhon [place] ####[facility] (DEFAULT)[address] [place] [address] pCO2 26 mm Hg Low 32-48 [facility] Comment on above: Performed By: #### Jhon [place] ####[facility] (DEFAULT)[address] [place] [address] pH, Arterial 7.45 Normal 7.35-7.45 [facility] Comment on above: Performed By: #### Jhon [place] ####[facility] (DEFAULT)[address] [place], [place] [address], [place] [address] pO2 66 mm Hg Low 83-108 [facility] Comment on above: Performed By: #### Jhon [place] ####[facility] (DEFAULT)[address] [place] [address], [place] [address] Potassium [Moles/Vol] 4.2 mmol/L Normal 3.5-5.0 [facility] Comment on above: Performed By: #### Jhon [place] ####[facility] (DEFAULT)[address] [place], [place] [address], [place] [address] Sodium [Moles/Vol] 129 mmol/L Low 135-145 [facility] Comment on above: Performed By: #### Jhon [place] ####[facility] (DEFAULT)[address] [place] [address], [place] [address] Specimen type Nom (Spec) Arterial Normal [facility] Comment on above: Performed By: #### Jhon [place] ####[facility] (DEFAULT)[address] [place] [address] Base Excess -6.6 mmol/L Low -3.0-3.0 [facility] Comment on above: Performed By: #### Jhon [place] ####[facility] (DEFAULT)[address] [place] [address] Carboxyhemoglobin 1.9 % High <=1.5 [facility] Comment on above: Performed By: #### Jhon [place] ####[facility] (DEFAULT)[address] [place] [address] Glucose [Mass/Vol] 103 mg/dL Normal Nonfastin g Glucose: 70-179 [facility] Comment on above: Performed By: #### Jhon [place] ####[facility] (DEFAULT)[address] [place] [address] HCO3 (Bld) [Moles/Vol] 18 mmol/L Low 22-28 [facility] Comment on above: Performed By: #### Jhon [place] ####[facility] (DEFAULT)[address] [place] [address] Hematocrit (Bld) [Volume fraction] 17 % Low 40-50 [facility] Comment on above: Performed By: #### Jhon [place] ####[facility] (DEFAULT)[address] [place] [address] Hemoglobin (Bld) [Mass/Vol] 5.3 g/dL Critically low 13.4-16.8 [facility] Comment on above: Performed By: #### Jhon [place] ####[facility] (DEFAULT)[address] [facility] [place] [address] Ionized Calcium, Whole Blood 4.50 mg/dL Low 4.60-5.30 [facility] Comment on above: Performed By: #### Jhon [place] ####[facility] (DEFAULT)[address] [place] [address] Lactate, Whole Blood 2.0 mmol/L High 0.5-1.6 [facility] [facility] Comment on above: Result Comment: Lact ate results >/= 2.0 mmol/L should be followed up with a measurement 2 hours later for patients with suspicion of sepsis. Performed By: #### Jhon CANADA ####[facility] (DEFAULT)[address] [place] [address] Methemoglobin 1.3 % Normal <=1.5 [facility] Comment on above: Performed By: #### Jhon CANADA ####[facility] (DEFAULT)[address] [place] [address] Oxygen saturation in Blood 99 % High 94-98 [facility] Comment on above: Performed By: #### Jhon CANADA ####[facility] (DEFAULT)[address] [place] [address] Oxyhemoglobin 96 % Normal 94-98 [facility] Comment on above: Performed By: #### Jhon CANADA ####[facility] (DEFAULT)[address] [place] [address] pCO2 37 mm Hg Normal 32-48 [facility] Comment on above: Performed By: #### Jhon CANADA ####[facility] (DEFAULT)[address] [place] [address] pH, Arterial 7.32 Low 7.35-7.45 [facility] Comment on above: Performed By: #### Jhon CANADA ####[facility] (DEFAULT)[address] [place] [address] pO2 172 mm Hg High 83-108 [facility] Comment on above: Performed By: #### Jhon CANADA ####[facility] (DEFAULT)[address] [place] [address] Potassium [Moles/Vol] 4.2 mmol/L Normal 3.5-5.0 [facility] Comment on above: Performed By: #### Jhon CANADA ####[facility] (DEFAULT)[address] [place] [address] Sodium [Moles/Vol] 131 mmol/L Low 135-145 [facility] Comment on above: Performed By: #### Jhon CANADA ####[facility] (DEFAULT)[address] [place] [address] Specimen type Nom (Spec) Arterial Normal [facility] Comment on above: Performed By: #### Jhon CANADA ####[facility] (DEFAULT)[address] [place] [address] Base Excess -4.7 mmol/L Low -3.0-3.0 [facility] Comment on above: Performed By: #### Jhon CANADA ####[facility] (DEFAULT)[address] [place] [address] Carboxyhemoglobin 1.6 % High <=1.5 [facility] Comment on above: Performed By: #### Jhon CANADA ####[facility] (DEFAULT)[address] [place] [address], [place] [address] Glucose [Mass/Vol] 111 mg/dL Normal Nonfastin g Glucose: 70-179 [facility] Comment on above: Performed By: #### Jhon CANADA ####[facility] (DEFAULT)[address] [place] [address], [place] [address] HCO3 (Bld) [Moles/Vol] 21 mmol/L Low 22-28 [facility] Comment on above: Performed By: ###Lowell CANADA ####[facility] (DEFAULT)[address] [place] [address], [place] [address] Hematocrit (Bld) [Volume fraction] 24 % Low 40-50 [facility] Comment on above: Performed By: #### Jhon CANADA ####[facility] (DEFAULT)[address] [place] [address], [place] [address] Hemoglobin (Bld) [Mass/Vol] 7.8 g/dL Low 13.4-16.8 [facility] Comment on above: Performed By: #### Jhon CANADA ####[facility] (DEFAULT)[address] [place] [address] Ionized Calcium, Whole Blood 4.39 mg/dL Low 4.60-5.30 [facility] Comment on above: Performed By: #### Jhon CANADA ####[facility] (DEFAULT)[address] [place] [address] Lactate, Whole Blood 1.3 mmol/L Normal 0.5-1.6 [facility] Comment on above: Performed By: #### Jhon CANADA ####[facility] (DEFAULT)[address] [place] [address] Methemoglobin 1.1 % Normal <=1.5 [facility] Comment on above: Performed By: #### Jhon CANADA ####[facility] (DEFAULT)[address] [place] [address] Oxygen saturation in Blood 98 % Normal 94-98 [facility] Comment on above: Performed By: #### Jhon CANADA ####[facility] (DEFAULT)[address] [facility] [place] [address] Oxyhemoglobin 96 % Normal 94-98 [facility] Comment on above: Performed By: #### Jhon CANADA ####[facility] (DEFAULT)[address] [facility] [place] [address] pCO2 43 mm Hg Normal 32-48 [facility] Comment on above: Performed By: #### Jhon CANADA ####[facility] (DEFAULT)[address] [place] [address] pH, Arterial 7.30 Low 7.35-7.45 [facility] Comment on above: Performed By: #### Jhon CANADA ####[facility] (DEFAULT)[address] [place] [address] pO2 124 mm Hg High 83-108 [facility] Comment on above: Performed By: #### Jhon CANADA ####[facility] (DEFAULT)[address] [place] [address] Potassium [Moles/Vol] 4.2 mmol/L Normal 3.5-5.0 [facility] Comment on above: Performed By: #### Jhon CANADA ####[facility] (DEFAULT)[address] [place] [address] Sodium [Moles/Vol] 129 mmol/L Low 135-145 [facility] Comment on above: Performed By: #### G CAROLYNLL ####[facility] (DEFAULT)[address] [place] [address] Specimen type Nom (Spec) Arterial Normal [facility] Comment on above: Performed By: #### G DREAD ####[facility] (DEFAULT)[address] [place] [address] ARTERIAL BLOOD GAS PLUS LACT ATEon 06-03-2024 Base Excess -9.1 mmol/L Low -3.0-3.0 [facility] Comment on above: Performed By: #### G AS5L ####[facility] (DEFAULT)[address] [place] [address] HCO3 (Bld) [Moles/Vol] 17 mmol/L Low 22-28 [facility] Comment on above: Performed By: #### Jhon AS5L ####[facility] (DEFAULT)[address] [place] [address] Lactate, Whole Blood 2.4 mmol/L High 0.5-1.6 [facility] Comment on above: Result Comment: Lact ate results >/= 2.0 mmol/L should be followed up with a measurement 2 hours later for patients with suspicion of sepsis. Performed By: #### G AS5L ####[facility] (DEFAULT)[address] [place] [address] Oxygen saturation in Blood 99 % High 94-98 [facility] Comment on above: Performed By: #### G AS5L ####[facility] (DEFAULT)[address] [place] [address] pCO2 31 mm Hg Low 32-48 [facility] Comment on above: Performed By: #### G AS5L ####[facility] (DEFAULT)[address] [place] [address] pH, Arterial 7.34 Low 7.35-7.45 [facility] Comment on above: Performed By: #### G AS5L ####[facility] (DEFAULT)[address] [place] [address] pO2 313 mm Hg High 83-108 [facility] Comment on above: Performed By: #### G AS5L ####[facility] (DEFAULT)[address] [place] [address], [place] [address] Specimen type Nom (Spec) Arterial Normal [facility] Comment on above: Performed By: #### G AS5L ####[facility] (DEFAULT)[address] [place] [address], [place] [address] BLOOD CULTUREon 06-03-2024 Bacteria identified Cx Nom (Unsp spec) NO GROWTH DAY 5 OF 5 Normal [facility] Comment on above: Order Comment: 2 Bot tles (1 Set - consists of 1 Aerobic bottle and 1 Anaerobic bottle) -1st Peripheral DrawFor vacutainer method draw: Fill aerobic bottle first, then anaerobic Performed By: #### B LDCULT ####[facility] (DEFAULT)[address] [place] [address] BODY FLUID CULTURE AND DIREC T SMEARon 06-03-2024 Amikacin [Susceptibility] 2 ug/mL Invalid Interpretation Code Susceptible <=4 ug/mL, Intermediate >4 ug/mL, Resistant >=16 ug/mL [facility] Comment on above: Performed By: #### B FLD ####[facility] (DEFAULT)[address] [place] [address], [place] [address] Ampicillin [Susceptibility] >=32 Resistant Susceptible <=8 ug/mL, Intermediate >8 ug/mL, Resistant >16 ug/mL [facility] Comment on above: Performed By: #### B FLD ####[facility] (DEFAULT)[address] [place] [address] Ampicillin+Sulbactam [Susceptibility] >= Resistant Susceptible <=8 ug/mL, Intermediate >8 ug/mL, Resistant >16 ug/mL [facility] Comment on above: Performed By: #### B FLD ####[facility] (DEFAULT)[address] [place] [address] ceFAZolin [Susceptibility] Resistant [facility] Comment on above: Performed By: #### B FLD ####[facility] (DEFAULT)[address] [place] [address], [place] [address] cefTRIAXone [Susceptibility] >= Resistant Susceptible <=1 ug/mL, Intermediate >1 ug/mL, Resistant >2 ug/mL [facility] Comment on above: Performed By: #### B FLD ####[facility] (DEFAULT)[address] [place] [address], [place] [address] Ciprofloxacin [Susceptibility] 0.5 ug/mL Significant change up Susceptible <=0.25 ug/mL, Intermediate >.25 ug/mL, Resistant >.5 ug/mL [facility] Comment on above: Performed By: #### B FLD ####[facility] (DEFAULT)[address] [place] [address], [place] [address] Ertapenem [Susceptibility] <= Invalid Interpretation Code Susceptible <=0.5 ug/mL, Intermediate >.5 ug/mL, Resistant >1 ug/mL [facility] Comment on above: Performed By: #### B FLD ####[facility] (DEFAULT)[address] [place] [address], [place] [address] Gentamicin [Susceptibility] <= Invalid Interpretation Code Susceptible <=2 ug/mL, Intermediate >2 ug/mL, Resistant >=8 ug/mL [facility] Comment on above: Performed By: #### B FLD ####[facility] (DEFAULT)[address] [place] [address] levoFLOXacin [Susceptibility] 1 ug/mL Significant change up Susceptible <=0.5 ug/mL, Intermediate >.5 ug/mL, Resistant >=2 ug/mL [facility] Comment on above: Performed By: #### B FLD ####[facility] (DEFAULT)[address] [place] [address], [place] [address] Piperacillin+Tazobact am [Susceptibility] Resistant [facility] Comment on above: Performed By: #### B FLD ####[facility] (DEFAULT)[address] [place] [address] Trimethoprim+Sulfamet hoxazole [Susceptibility] >= Resistant Susceptible <=40 ug/mL, Resistant >40 ug/mL [facility] Comment on above: Performed By: #### B FLD ####[facility] (DEFAULT)[address] [place] [address], [place] [address] CALCIUMon 06-03-2024 Calcium [Mass/Vol] 8.5 mg/dL Low 8.6-10.5 [facility] Comment on above: Performed By: #### C HM7, IPB, HFP, MGO, CA ####[facility] (DEFAULT)[address] [place] [address] NAEEM AURIS SCREEN BY PCRo n 06-03-2024 Naeem auris Screen by PCR Not detected Normal Not Detected [facility] Comment on above: Order Comment: This test was performed using a real-time PCR assay. This test was developed, and its performance characteristics determined by [facility]. It has not been cleared or approved by the FDA. The laboratory is regulated under CLIA as qualified to perform high-complexity testing. This test is used for clinical purposes. It should not be regarded as investigational or for research. Performed By: #### C ANDIDA AURIS SCREEN BY PCR ####[facility] (DEFAULT)[address] [place] [address] CBC,PLATELETSon 06-03-2024 Hematocrit (Bld) [Volume fraction] 22.4 % Low 39.6-48.8 [facility] Comment on above: Performed By: #### H EMOGC ####[facility] (DEFAULT)[address] [place] [address] Hemoglobin (Bld) [Mass/Vol] 8.1 g/dL Low 13.4-16.8 [facility] Comment on above: Performed By: #### H EMOGC ####[facility] (DEFAULT)[address] [place] [address] MCV (RBC) [Entitic vol] 89.2 fL Normal 79.0-94.5 [facility] Comment on above: Result Comment: Resu lts inconsistent with previous results Performed By: #### H EMOGC ####[facility] (DEFAULT)[address] [place] [address] Mean Cell Hgb 32.3 pg Normal 26.1-33.3 [facility] Comment on above: Performed By: #### H EMOGC ####[facility] (DEFAULT)[address] [place] [address] Mean Cell Hgb Conc 36.2 g/dL Normal 31.9-36.5 [facility] Comment on above: Performed By: #### H EMOGC ####[facility] (DEFAULT)[address] [place] [address] Platelet mean volume (Bld) [Entitic vol] 12.0 fL Normal 8.7-12.3 [facility] Comment on above: Performed By: #### H EMOGC ####[facility] (DEFAULT)[address] [place] [address] Platelets (Bld) [#/Vol] 115 10*3/uL Low 146-337 [facility] Comment on above: Performed By: #### H EMOGC ####[facility] (DEFAULT)[address] [place] [address] RBC (Bld) [#/Vol] 2.51 10*6/uL Low 4.38-5.83 [facility] Comment on above: Performed By: #### H EMOGC ####[facility] (DEFAULT)[address] [place] [address] RBC Distribution 15.5 % High 10.9-14.3 [facility] Comment on above: Performed By: #### H EMOGC ####[facility] (DEFAULT)[address] [place] [address] WBC (Bld) [#/Vol] 23.14 10*3/uL High 3.73-10.10 [facility] Comment on above: Performed By: #### H EMO ####[facility] (DEFAULT)[address] [place] [address] Hematocrit (Bld) [Volume fraction] 20.9 % Low 39.6-48.8 [facility] Comment on above: Performed By: #### H EMO ####[facility] (DEFAULT)[address] [place] [address] Hemoglobin (Bld) [Mass/Vol] 7.1 g/dL Low 13.4-16.8 [facility] Comment on above: Result Comment: Resu lts inconsistent with previous results. Performed By: #### H EMO ####[facility] (DEFAULT)[address] [place] [address] MCV (RBC) [Entitic vol] 94.6 fL High 79.0-94.5 [facility] Comment on above: Performed By: #### H EMO ####[facility] (DEFAULT)[address] [place] [address] Mean Cell Hgb 32.1 pg Normal 26.1-33.3 [facility] Comment on above: Performed By: #### H EMOGC ####[facility] (DEFAULT)[address] [place] [address] Mean Cell Hgb Conc 34.0 g/dL Normal 31.9-36.5 [facility] Comment on above: Performed By: #### H EMOGC ####[facility] (DEFAULT)[address] [place] [address] Platelet mean volume (Bld) [Entitic vol] 12.4 fL High 8.7-12.3 [facility] Comment on above: Performed By: #### H EMOGC ####[facility] (DEFAULT)[address] [place] [address] Platelets (Bld) [#/Vol] 150 10*3/uL Normal 146-337 [facility] Comment on above: Performed By: #### H EMOGC ####[facility] (DEFAULT)[address] [place] [address] RBC (Bld) [#/Vol] 2.21 10*6/uL Low 4.38-5.83 [facility] Comment on above: Performed By: #### H EMO ####[facility] (DEFAULT)[address] [place] [address] RBC Distribution 15.9 % High 10.9-14.3 [facility] Comment on above: Performed By: #### H EMO ####[facility] (DEFAULT)[address] [place] [address] WBC (Bld) [#/Vol] 16.80 10*3/uL High 3.73-10.10 [facility] Comment on above: Performed By: #### H EMOGC ####[facility] (DEFAULT)[address] [place] [address] Hematocrit (Bld) [Volume fraction] 33.2 % Low 39.6-48.8 [facility] Comment on above: Performed By: #### H EMOGC ####[facility] (DEFAULT)[address] [place] [address] Hemoglobin (Bld) [Mass/Vol] 11.0 g/dL Low 13.4-16.8 [facility] Comment on above: Performed By: #### H EMOGC ####[facility] (DEFAULT)[address] [place] [address] MCV (RBC) [Entitic vol] 96.5 fL High 79.0-94.5 [facility] Comment on above: Performed By: #### H EMOGC ####[facility] (DEFAULT)[address] [place] [address] Mean Cell Hgb 32.0 pg Normal 26.1-33.3 [facility] Comment on above: Performed By: #### H EMOGC ####[facility] (DEFAULT)[address] [place] [address] Mean Cell Hgb Conc 33.1 g/dL Normal 31.9-36.5 [facility] Comment on above: Performed By: #### H EMOGC ####[facility] (DEFAULT)[address] [place] [address] Platelet mean volume (Bld) [Entitic vol] 12.0 fL Normal 8.7-12.3 [facility] Comment on above: Performed By: #### H EMOGC ####[facility] (DEFAULT)[address] [place] [address] Platelets (Bld) [#/Vol] 299 10*3/uL Normal 146-337 [facility] Comment on above: Performed By: #### H EMOGC ####[facility] (DEFAULT)[address] [place] [address] RBC (Bld) [#/Vol] 3.44 10*6/uL Low 4.38-5.83 [facility] Comment on above: Performed By: #### H EMOGC ####[facility] (DEFAULT)[address] [place] [address] RBC Distribution 16.8 % High 10.9-14.3 [facility] Comment on above: Performed By: #### H EMOGC ####[facility] (DEFAULT)[address] [place] [address] WBC (Bld) [#/Vol] 54.06 10*3/uL Critically high 3.73-10.10 [facility] Comment on above: Result Comment: This result has been called to Stephanie Barcenas RN by Navya on 06/03/2024 06:57:32, and has been read back. Performed By: #### H EMO ####[facility] (DEFAULT)[address] [place] [address] CHEM 7 (LYTES,BUN,CREA,GLUC) on 06-03-2024 Anion gap [Moles/Vol] 18 mmol/L High 7-17 [facility] Comment on above: Performed By: #### H FP, CHM7, IPB, MGO ####[facility] (DEFAULT)[address] [place] [address] Chloride [Moles/Vol] 105 mmol/L Normal 98-108 [facility] Comment on above: Performed By: #### H FP, CHM7, IPB, MGO ####[facility] (DEFAULT)[address] [place] [address] CO2 [Moles/Vol] 17 mmol/L Low 21-31 [facility] Comment on above: Performed By: #### H FP, CHM7, IPB, MGO ####[facility] (DEFAULT)[address] [place] [address] Creatinine [Mass/Vol] 1.12 mg/dL Normal 0.70-1.30 [facility] Comment on above: Performed By: #### H FP, CHM7, IPB, MGO ####[facility] (DEFAULT)[address] [place] [address] GFR/1.73 sq M.predicted among non-blacks MDRD (S/P/Bld) [Vol rate/Area] 76 mL/min/{1.73_m2} Normal >=60 [facility] Comment on above: Result Comment: Repo rted eGFR is based on the CKD-EPI 2020 equation using creatinine, age, and sex. Performed By: #### H FP, CHM7, IPB, MGO ####[facility] (DEFAULT)[address] [place] [address] Glucose [Mass/Vol] 109 mg/dL Normal Nonfastin -179 mg/dL; Fastin-99 [facility] Comment on above: Performed By: #### H FP, CHM7, IPB, MGO ####[facility] (DEFAULT)[address] [place] [address] Osmolality [Osmolality] 294 mosm/kg Normal 278-305 [facility] Comment on above: Performed By: #### H FP, CHM7, IPB, MGO ####[facility] (DEFAULT)[address] [place] [address] Potassium [Moles/Vol] 4.8 mmol/L Normal 3.5-5.0 [facility] Comment on above: Performed By: #### H FP, CHM7, IPB, MGO ####[facility] (DEFAULT)[address] [place] [address] Sodium [Moles/Vol] 135 mmol/L Normal 135-145 [facility] Comment on above: Performed By: #### H FP, CHM7, IPB, MGO ####[facility] (DEFAULT)[address] [place] [address] Urea nitrogen [Mass/Vol] 36 mg/dL High 7-25 [facility] Comment on above: Performed By: #### H FP, CHM7, IPB, MGO ####[facility] (DEFAULT)[address] [place] [address] Urea nitrogen/Creatinine [Mass ratio] 32 mg/mg Normal [facility] Comment on above: Performed By: #### H FP, CHM7, IPB, MGO ####[facility] (DEFAULT)[address] [place] [address] Anion gap [Moles/Vol] 20 mmol/L High 7-17 [facility] Comment on above: Performed By: #### C HM7, IPB, HFP, MGO, CA ####[facility] (DEFAULT)[address] [place] [address] Chloride [Moles/Vol] 98 mmol/L Normal 98-108 [facility] Comment on above: Performed By: #### C HM7, IPB, HFP, MGO, CA ####[facility] (DEFAULT)[address] [place] [address] CO2 [Moles/Vol] 15 mmol/L Low 21-31 [facility] Comment on above: Performed By: #### C HM7, IPB, HFP, MGO, CA ####[facility] (DEFAULT)[address] [place] [address] Creatinine [Mass/Vol] 1.04 mg/dL Normal 0.70-1.30 [facility] Comment on above: Performed By: #### C HM7, IPB, HFP, MGO, CA ####[facility] (DEFAULT)[address] [place] [address] GFR/1.73 sq M.predicted among non-blacks MDRD (S/P/Bld) [Vol rate/Area] 83 mL/min/{1.73_m2} Normal >=60 [facility] Comment on above: Result Comment: Repo rted eGFR is based on the CKD-EPI 2020 equation using creatinine, age, and sex. Performed By: #### C HM7, IPB, HFP, MGO, CA ####[facility] (DEFAULT)[address] [place] [address] Glucose [Mass/Vol] 100 mg/dL Normal Nonfastin -179 mg/dL; Fastin-99 [facility] Comment on above: Performed By: #### C HM7, IPB, HFP, MGO, CA ####[facility] (DEFAULT)[address] [place] [address] Osmolality [Osmolality] 279 mosm/kg Normal 278-305 [facility] Comment on above: Performed By: #### C HM7, IPB, HFP, MGO, CA ####[facility] (DEFAULT)[address] [place] [address] Potassium [Moles/Vol] 4.5 mmol/L Normal 3.5-[facility].[address] [facility] Comment on above: Performed By: #### C HM7, IPB, HFP, MGO, CA ####[facility] (DEFAULT)[address] [place] [address] Sodium [Moles/Vol] 128 mmol/L Low 135-145 [facility] Comment on above: Performed By: #### C HM7, IPB, HFP, MGO, CA ####[facility] (DEFAULT)[address] [place] [address] Urea nitrogen [Mass/Vol] 33 mg/dL High 7-25 [facility] Comment on above: Performed By: #### C HM7, IPB, HFP, MGO, CA ####[facility] (DEFAULT)[address] [place] [address] Urea nitrogen/Creatinine [Mass ratio] 32 mg/mg Normal [facility] Comment on above: Performed By: #### C HM7, IPB, HFP, MGO, CA ####[facility] (DEFAULT)[address] [place] [address] FUNGUS CULTUREon 06-03-2024 Fluconazole [Susceptibility] 64 ug/mL Invalid Interpretation Code Susceptible <=0 ug/mL, Unknown >0 ug/mL [facility] Comment on above: Order Comment: Note: U (Unknown) is used to interpret results when CLSI Interpretive Guidelines are not available.This test was performed using a broth microdilution test method. This test was developed and its performance characteristics determined by the Clinical Microbiology Laboratory at [facility]. It has not been cleared or approved by the U.S. Food and Drug Administration. The laboratory is regulated under CLIA as qualified to perform high complexity testing. This test is used for clinical purposes. It should not be regarded as investigational or for research. Performed By: #### F UN ####[facility] (DEFAULT)[address] [place] [address] Micafungin [Susceptibility] 0.12 ug/mL Invalid Interpretation Code Susceptible <=0 ug/mL, Unknown >0 ug/mL [facility] Comment on above: Order Comment: Note: U (Unknown) is used to interpret results when CLSI Interpretive Guidelines are not available.This test was performed using a broth microdilution test method. This test was developed and its performance characteristics determined by the Clinical Microbiology Laboratory at [facility]. It has not been cleared or approved by the U.S. Food and Drug Administration. The laboratory is regulated under CLIA as qualified to perform high complexity testing. This test is used for clinical purposes. It should not be regarded as investigational or for research. Performed By: #### F UN ####[facility] (DEFAULT)[address] [place] [id number] HEPATIC FUNCTION PANELon Albumin [Mass/Vol] 2.6 g/dL Low 3.5-5.0 [facility] Comment on above: Performed By: #### H FP, CHM7, IPB, MGO ####[facility] (DEFAULT)[address] [place] [address] ALP [Catalytic activity/Vol] 102 U/L Normal 32-126 [facility] Comment on above: Performed By: #### H FP, CHM7, IPB, MGO ####[facility] (DEFAULT)[address] [place] [address] ALT [Catalytic activity/Vol] 88 U/L High 10-52 [facility] Comment on above: Performed By: #### H FP, CHM7, IPB, MGO ####[facility] (DEFAULT)[address] [place] [address] AST [Catalytic activity/Vol] 153 U/L High 10-39 [facility] Comment on above: Performed By: #### H FP, CHM7, IPB, MGO ####[facility] (DEFAULT)[address] [place] [address] Bilirubin [Mass/Vol] 2.8 mg/dL High <1.5 [facility] Comment on above: Performed By: #### H FP, CHM7, IPB, MGO ####[facility] (DEFAULT)[address] [place] [address] Bilirubin.indirect [Mass/Vol] 1.8 mg/dL High <0.3 [facility] Comment on above: Performed By: #### H FP, CHM7, IPB, MGO ####[facility] (DEFAULT)[address] [place] [address] Protein [Mass/Vol] 3.7 g/dL Low 6.4-8.3 [facility] Comment on above: Performed By: #### H FP, CHM7, IPB, MGO ####[facility] (DEFAULT)[address] [place] [address] Albumin [Mass/Vol] 3.4 g/dL Low 3.5-5.0 [facility] Comment on above: Performed By: #### C HM7, IPB, HFP, MGO, CA ####[facility] (DEFAULT)[address] [place] [address] ALP [Catalytic activity/Vol] 242 U/L High 32-126 [facility] Comment on above: Performed By: #### C HM7, IPB, HFP, MGO, CA ####[facility] (DEFAULT)[address] [place] [address] ALT [Catalytic activity/Vol] 64 U/L High 10-52 [facility] Comment on above: Performed By: #### C HM7, IPB, HFP, MGO, CA ####[facility] (DEFAULT)[address] [place] [address] AST [Catalytic activity/Vol] 66 U/L High 10-39 [facility] Comment on above: Performed By: #### C HM7, IPB, HFP, MGO, CA ####[facility] (DEFAULT)[address] [place] [address] Bilirubin [Mass/Vol] 3.2 mg/dL High <1.5 [facility] Comment on above: Performed By: #### C HM7, IPB, HFP, MGO, CA ####[facility] (DEFAULT)[address] [place] [address] Bilirubin.indirect [Mass/Vol] 1.7 mg/dL High <0.3 [facility] Comment on above: Performed By: #### C HM7, IPB, HFP, MGO, CA ####[facility] (DEFAULT)[address] [place] [address] Protein [Mass/Vol] 5.8 g/dL Low 6.4-8.3 [facility] Comment on above: Performed By: #### C HM7, IPB, HFP, MGO, CA ####[facility] (DEFAULT)[address] [place] [address] IONIZED CALCIUM, WHOLE BLOOD on 06-03-2024 ICA 4.34 mg/dL Low 4.60-5.30 [facility] Comment on above: Performed By: #### I CA ####[facility] (DEFAULT)[address] [place] [address] LACTATE, BLOODon 06-03-2024 Lactate, Blood 1.9 mmol/L High 0.5-1.6 [facility] Comment on above: Performed By: #### L ACT ####[facility] (DEFAULT)[address] [place] [address] MAGNESIUMon 06-03-2024 Magnesium [Mass/Vol] 2.3 mg/dL Normal 1.6-2.6 [facility] Comment on above: Performed By: #### H FP, CHM7, IPB, MGO ####[facility] (DEFAULT)[address] [facility] [place] [address] Magnesium [Mass/Vol] 2.6 mg/dL Normal 1.6-2.6 [facility] Comment on above: Performed By: #### C HM7, IPB, HFP, MGO, CA ####[facility] (DEFAULT)[address] [place] [address] PHOSPHATE, INORGANICon 06-03 Phosphorous 5.6 mg/dL High 2.2-4.6 [facility] Comment on above: Performed By: #### H FP, CHM7, IPB, MGO ####[facility] (DEFAULT)[address] [place] [address] Phosphorous 4.1 mg/dL Normal 2.2-4.6 [facility] Comment on above: Performed By: #### C HM7, IPB, HFP, MGO, CA ####[facility] (DEFAULT)[address] [place], [place] [address], [place] [address] PT,INR,PTTon 06-03-2024 aPTT Coag (Bld) [Time] 44.0 s High 24.0-34.3 [facility] Comment on above: Performed By: #### P TPTT ####[facility] (DEFAULT)[address] [place] [address] INR Coag (PPP) [Relative time] 3.1 {INR} High 0.9-1.1 [facility] Comment on above: Performed By: #### P TPTT ####[facility] (DEFAULT)[address] [place] [address] PT Coag (PPP) [Time] 31.5 s High 11.9-14.2 [facility] Comment on above: Performed By: #### P TPTT ####[facility] (DEFAULT)[address] [place] [address] aPTT Coag (Bld) [Time] 35.5 s High 24.0-34.3 [facility] Comment on above: Performed By: #### P TPTT ####[facility] (DEFAULT)[address] [place] [address] INR Coag (PPP) [Relative time] 1.8 {INR} High 0.9-1.1 [facility] Comment on above: Performed By: #### P TPTT ####[facility] (DEFAULT)[address] [place] [address] PT Coag (PPP) [Time] 20.9 s High 11.9-14.2 [facility] Comment on above: Performed By: #### P TPTT ####[facility] (DEFAULT)[address] [place] [address] HOWARD MAIN LAB: ROUTINE PANE Campbell 06-03-2024 EXTEM D A10 51 mm Normal No reference range available; see comment [facility] Comment on above: Order Comment: Refer [...] R OTEM MAIN LAB: ROUTINE PANEL ####[facility] (DEFAULT)[address] [place] [address] EXTEM D A20 58 mm Normal 50-70 [facility] Comment on above: Order Comment: Refer ence ranges are not available for all HOWARD components unless otherwise noted:Interpretation of HOWARD results must include all available parameters, patient clinical context and current therapy.OHWARD viscoelastic testing is not FDA approved for the pediatric population (<21 years of age) and the attached reference ranges pertain to adults only. Performed By: #### R OTEM MAIN LAB: ROUTINE PANEL ####[facility] (DEFAULT)[address] [place] [address] EXTEM D ALPHA 67 degree Normal 65-80 [facility] Comment on above: Order Comment: Refer [...] R OTEM MAIN LAB: ROUTINE PANEL ####[facility] (DEFAULT)[address] [place] [address] EXTEM D CFT 117 sec Normal 48-127 [facility] Comment on above: Order Comment: Refer [...] R OTEM MAIN LAB: ROUTINE PANEL ####[facility] (DEFAULT)[address] [place] [address] 89 sec High 43-82 [facility] Comment on above: Order Comment: Refer [...] R OTEM MAIN LAB: ROUTINE PANEL ####[facility] (DEFAULT)[address] [place] [address] EXTEM D LI30 100 % Normal No reference range available; see comment [facility] Comment on above: Order Comment: Refer [...] R OTEM MAIN LAB: ROUTINE PANEL ####[facility] (DEFAULT)[address] [place] [address], [place] [address] EXTEM D MCF 59 mm Normal 52-70 [facility] Comment on above: Order Comment: Refer [...] #### R OTEM MAIN LAB: ROUTINE PANEL ####[facility] (DEFAULT)[address] [place] [address] EXTEM D ML 6 % Normal No reference range available; see comment [facility] Comment on above: Order Comment: Refer [...] #### R OTEM MAIN LAB: ROUTINE PANEL ####[facility] (DEFAULT)[address] [place] [address], [place] [address] FIBTEM A10 [address] [facility] Comment on above: Order Comment: Refer [...] #### R OTEM MAIN LAB: ROUTINE PANEL ####[facility] (DEFAULT)[address] [place] [address], [place] [address] FIBTEM A20 13 mm Normal 7-21 [facility] Comment on above: Order Comment: Refer [...] #### R OTEM MAIN LAB: ROUTINE PANEL ####[facility] (DEFAULT)[address] [place] [address] FIBTEM ALPHA [address] [facility] Comment on above: Order Comment: Refer [...] R OTEM MAIN LAB: ROUTINE PANEL ####[facility] (DEFAULT)[address] [place] [address] [facility] Comment on above: Order Comment: Refer [...] #### R OTEM MAIN LAB: ROUTINE PANEL ####[facility] (DEFAULT)[address] [place] [address] FIBTEM LI30 100 % Normal [facility] Comment on above: Order Comment: Refer [...] #### R OTEM MAIN LAB: ROUTINE PANEL ####[facility] (DEFAULT)[address] [place] [address] FIBTEM MCF 14 mm Normal 7-21 [facility] Comment on above: Order Comment: Refer [...] R OTEM MAIN LAB: ROUTINE PANEL ####[facility] (DEFAULT)[address] [place] [address] FIBTEM ML 0 % Normal [facility] Comment on above: Order Comment: Refer [...] #### R OTEM MAIN LAB: ROUTINE PANEL ####[facility] (DEFAULT)[address] [place] [address] INTEM D A10 53 mm Normal No reference range available; see comment [facility] Comment on above: Order Comment: Refer [...] R OTEM MAIN LAB: ROUTINE PANEL ####[facility] (DEFAULT)[address] [place] [address] INTEM D A20 60 mm Normal 51-72 [facility] Comment on above: Order Comment: Refer [...] R OTEM MAIN LAB: ROUTINE PANEL ####[facility] (DEFAULT)[address] [place] [address] INTEM D ALPHA 72 degree Normal 70-81 [facility] Comment on above: Order Comment: Refer [...] R OTEM MAIN LAB: ROUTINE PANEL ####[facility] (DEFAULT)[address] [place] [address], [place] [address] INTEM D CFT 89 sec Normal 45-110 [facility] Comment on above: Order Comment: Refer [...] R OTEM MAIN LAB: ROUTINE PANEL ####[facility] (DEFAULT)[address] [place] [address], [place] [address] 204 sec Normal 122-208 [facility] Comment on above: Order Comment: Refer [...] #### R OTEM MAIN LAB: ROUTINE PANEL ####[facility] (DEFAULT)[address] [place] [address] INTEM D LI30 100 % Normal No reference range available; see comment [facility] Comment on above: Order Comment: Refer [...] #### R OTEM MAIN LAB: ROUTINE PANEL ####[facility] (DEFAULT)[address] [place] [address] INTEM D MCF 61 mm Normal 51-72 [facility] Comment on above: Order Comment: Refer [...] #### R OTEM MAIN LAB: ROUTINE PANEL ####[facility] (DEFAULT)[address] [place] [address] INTEM D ML 4 % Normal [facility] Comment on above: Order Comment: Refer [...] #### R OTEM MAIN LAB: ROUTINE PANEL ####[facility] (DEFAULT)[address] [place] [address] TACROLIMUS LEVEL, TROUGH (NE E DRUG LEVEL)on 06-03-2024 Tacrolimus, Trough 18.8 ng/mL Normal Bone Veronique ow Transplant: 5.0-15.0 Kidney/Pancre atic Transplant: 0 to 3 months: 8.0-10.0, 3 to 12 months: 6.0-8.0, >12 months: 4.0-6.0 [facility] Comment on above: Order Comment: Pleas e draw at specified interval PRIOR to dose. Do not hold dose to wait for level. Specimens batched twice per day, (M-F) and once per day weekendsMethod performed is a chemiluminescent microparticle immunoasssay on the 71lbs [employer] i2000.The range is based on experience at [facility] and users should be aware that target concentrations vary widely depending on concomitant therapy, time post-transplant, and desired degree of immunosuppression. Performed By: #### T ACRO ####[facility] (DEFAULT)[address] [place] [address] TYPE AND SCREENon 06-03-2024 ABO/RH(D) TYPE Positive Normal [facility] Comment on above: Performed By: #### X M ####[facility] (DEFAULT)[address] [place], [place] [address], [place] [address] Specimen Expiration 06/06/2024 23:[address] [facility] Comment on above: Performed By: #### X M ####[facility] (DEFAULT)[address] [place] [address] URINALYSISon 06-03-2024 Appearance (U) Turbid Abnormal Clear [facility] Comment on above: Performed By: #### U RIN ####[facility] (DEFAULT)[address] [place], [place] [address], [place] [address] Bacteria TRACE Abnormal ABSENT [facility] Comment on above: Performed By: #### U RIN ####[facility] (DEFAULT)[address] [place], [place] [address], [place] [address] Blood Urine Large Abnormal Negative [facility] Comment on above: Performed By: #### U RIN ####[facility] (DEFAULT)[address] [place], [place] [address], [place] [address] Color (U) Yellow Normal Yellow [facility] Comment on above: Performed By: #### U RIN ####[facility] (DEFAULT)[address] [place], [place] [address], [place] [address] Glucose Ql (U) Negative Normal Negative [facility] Comment on above: Performed By: #### U RIN ####[facility] (DEFAULT)[address] [place], [place] [address], [place] [address] Granular Casts 0 - [address] [facility] Comment on above: Performed By: #### U RIN ####[facility] (DEFAULT)[address] [place] [address] Ketones Ql (U) Negative Normal Negative [facility] Comment on above: Performed By: #### U RIN ####[facility] (DEFAULT)[address] [place] [address] Leukocyte esterase Test strip Ql (U) Negative Normal Negative [facility] Comment on above: Performed By: #### U RIN ####[facility] (DEFAULT)[address] [place] [address] Nitrites Urine Negative Normal Negative [facility] Comment on above: Performed By: #### U RIN ####[facility] (DEFAULT)[address] [place] [address] pH (U) 5.0 [pH] Normal 5.0-7.0 [facility] Comment on above: Performed By: #### U RIN ####[facility] (DEFAULT)[address] [place] [address] Protein Urine 30 mg/dL Abnormal Negative [facility] Comment on above: Performed By: #### U RIN ####[facility] (DEFAULT)[address] [place] [address], [place] [address] RBC Urine 6-10 Abnormal 0-2 [facility] Comment on above: Performed By: #### U RIN ####[facility] (DEFAULT)[address] [place] [address], [place] [address] Specific Novinger Urine 1.030 Normal 1.001-1.035 [facility] Comment on above: Performed By: #### U RIN ####[facility] (DEFAULT)[address] [place] [address] Squamous/Epithelial Cells, Urine 3-5/hpf = 1+ Normal 0-2/hpf, 3-5/hpf = 1+ [facility] Comment on above: Performed By: #### U RIN ####[facility] (DEFAULT)[address] [place] [address] Urobilinogen Urine 1.0 E.U./dL Normal 0.2 E.U/d L, 1.0 E.U/dL [facility] Comment on above: Performed By: #### U RIN ####[facility] (DEFAULT)[address] [place] [address] WBC Urine 11 - 20 Abnormal 0 - 5 [facility] Comment on above: Performed By: #### U RIN ####[facility] (DEFAULT)[address] [place] [address], [place] [address] XR ABDOMEN 1 VIEW PORTABLEon 06-03-2024 XR ABDOMEN [address] [facility] XR CHEST 1 VIEW PORTABLEon 0 06-03-2024 XR CHEST [address] [facility] CALCIUMon 06-02-2024 Calcium [Mass/Vol] 8.4 mg/dL Low 8.6-10.5 [facility] Comment on above: Performed By: #### L ABCYCR, IPB, HFP, CHM7, MGO, CA ####[facility] (DEFAULT)[address] [place] [address] CBC,PLATELETSon 06-02-2024 Hematocrit (Bld) [Volume fraction] 29.9 % Low 39.6-48.8 [facility] Comment on above: Performed By: #### H EMO ####[facility] (DEFAULT)[address] [place] [address] Hemoglobin (Bld) [Mass/Vol] 10.1 g/dL Low 13.4-16.8 [facility] Comment on above: Performed By: #### H EMOGC ####[facility] (DEFAULT)[address] [place] [address] MCV (RBC) [Entitic vol] 95.8 fL High 79.0-94.5 [facility] Comment on above: Performed By: #### H EMOGC ####[facility] (DEFAULT)[address] [place] [address] Mean Cell Hgb 32.4 pg Normal 26.1-33.3 [facility] Comment on above: Performed By: #### H EMOGC ####[facility] (DEFAULT)[address] [place] [address] Mean Cell Hgb Conc 33.8 g/dL Normal 31.9-36.5 [facility] Comment on above: Performed By: #### H EMOGC ####[facility] (DEFAULT)[address] [place] [address] Platelet mean volume (Bld) [Entitic vol] 11.6 fL Normal 8.7-12.3 [facility] Comment on above: Performed By: #### H EMOGC ####[facility] (DEFAULT)[address] [place] [address] Platelets (Bld) [#/Vol] 304 10*3/uL Normal 146-337 [facility] Comment on above: Performed By: #### H EMOGC ####[facility] (DEFAULT)[address] [place] [address] RBC (Bld) [#/Vol] 3.12 10*6/uL Low 4.38-5.83 [facility] Comment on above: Performed By: #### H EMOGC ####[facility] (DEFAULT)[address] [place] [address] RBC Distribution 16.5 % High 10.9-14.3 [facility] Comment on above: Performed By: #### H EMOGC ####[facility] (DEFAULT)[address] [place] [address] WBC (Bld) [#/Vol] 24.75 10*3/uL High 3.73-10.10 [facility] Comment on above: Performed By: #### H EMOGC ####[facility] (DEFAULT)[address] [place] [address] CHEM 7 (LYTES,BUN,CREA,GLUC) on 06-02-2024 Anion gap [Moles/Vol] 13 mmol/L Normal 7-17 [facility] Comment on above: Performed By: #### L ABCYCR, IPB, HFP, CHM7, MGO, CA ####[facility] (DEFAULT)[address] [place] [address] Chloride [Moles/Vol] 98 mmol/L Normal 98-108 [facility] Comment on above: Performed By: #### L ABCYCR, IPB, HFP, CHM7, MGO, CA ####[facility] (DEFAULT)[address] [place] [address] CO2 [Moles/Vol] 25 mmol/L Normal 21-31 [facility] Comment on above: Performed By: #### L ABCYCR, IPB, HFP, CHM7, MGO, CA ####[facility] (DEFAULT)[address] [place] [address] Creatinine [Mass/Vol] 0.47 mg/dL Low 0.70-1.30 [facility] Comment on above: Performed By: #### L ABCYCR, IPB, HFP, CHM7, MGO, CA ####[facility] (DEFAULT)[address] [place] [address] eGFR, CKD-EPI, Male > Normal >=60 [facility] Comment on above: Result Comment: Repo rted eGFR is based on the CKD-EPI 2020 equation using creatinine, age, and sex. Performed By: #### L ABCYCR, IPB, HFP, CHM7, MGO, CA ####[facility] (DEFAULT)[address] [place] [address] Glucose [Mass/Vol] 107 mg/dL Normal Nonfastin -179 mg/dL; Fastin-99 [facility] Comment on above: Performed By: #### L ABCYCR, IPB, HFP, CHM7, MGO, CA ####[facility] (DEFAULT)[address] [place] [address] Osmolality [Osmolality] 280 mosm/kg Normal 278-305 [facility] Comment on above: Performed By: #### L ABCYCR, IPB, HFP, CHM7, MGO, CA ####[facility] (DEFAULT)[address] [place] [address] Potassium [Moles/Vol] 4.7 mmol/L Normal 3.5-5.0 [facility] Comment on above: Performed By: #### L ABCYCR, IPB, HFP, CHM7, MGO, CA ####[facility] (DEFAULT)[address] [place] [address] Sodium [Moles/Vol] 131 mmol/L Low 135-145 [facility] Comment on above: Performed By: #### L ABCYCR, IPB, HFP, CHM7, MGO, CA ####[facility] (DEFAULT)[address] [place] [address] Urea nitrogen [Mass/Vol] 18 mg/dL Normal 7-25 [facility] Comment on above: Performed By: #### L ABCYCR, IPB, HFP, CHM7, MGO, CA ####[facility] (DEFAULT)[address] [place] [address] Urea nitrogen/Creatinine [Mass ratio] 38 mg/mg Normal [facility] Comment on above: Performed By: #### L ABCYCR, IPB, HFP, CHM7, MGO, CA ####[facility] (DEFAULT)[address] [place] [address] CT ABDOMEN/PELVIS WITH CONTR Sugar 06-02-2024 CT ABDOMEN/PELVIS WITH CONTRAST Normal [facility] CYSTATIN C AND CREATININE WI TH ESTIMATED GFRon 06-02-2024 Cystatin C 0.93 mg/L Normal 0.51-1.05 [facility] Comment on above: Performed By: #### L ABCYCR, IPB, HFP, CHM7, MGO, CA ####[facility] (DEFAULT)[address] [place] [address] EGFR BY CYS C AND CREATININE, MALE 105 mL/min/1.73m2 Normal >=60 [facility] Comment on above: Result Comment: Repo rted eGFR is based on the CKD-EPI 2020 equation using cystatin C, creatinine, age, and sex. Performed By: #### L ABCYCR, IPB, HFP, CHM7, MGO, CA ####[facility] (DEFAULT)[address] [place] [phone] HEPATIC FUNCTION PANELon Albumin [Mass/Vol] 3.4 g/dL Low 3.5-5.0 [facility] Comment on above: Performed By: #### L ABCYCR, IPB, HFP, CHM7, MGO, CA ####[facility] (DEFAULT)[address] [place], [place] [address] ALP [Catalytic activity/Vol] 237 U/L High 32-126 [facility] Comment on above: Performed By: #### L ABCYCR, IPB, HFP, CHM7, MGO, CA ####[facility] (DEFAULT)[address] [place] [address] ALT [Catalytic activity/Vol] 31 U/L Normal 10-52 [facility] Comment on above: Performed By: #### L ABCYCR, IPB, HFP, CHM7, MGO, CA ####[facility] (DEFAULT)[address] [place] [address] AST [Catalytic activity/Vol] 22 U/L Normal 10-39 [facility] Comment on above: Performed By: #### L ABCYCR, IPB, HFP, CHM7, MGO, CA ####[facility] (DEFAULT)[address] [place] [address] Bilirubin [Mass/Vol] 3.7 mg/dL High <1.5 [facility] Comment on above: Performed By: #### L ABCYCR, IPB, HFP, CHM7, MGO, CA ####[facility] (DEFAULT)[address] [place] [address] Bilirubin.indirect [Mass/Vol] 2.2 mg/dL High <0.3 [facility] Comment on above: Performed By: #### L ABCYCR, IPB, HFP, CHM7, MGO, CA ####[facility] (DEFAULT)[address] [place] [address] Protein [Mass/Vol] 5.6 g/dL Low 6.4-8.3 [facility] Comment on above: Performed By: #### L ABCYCR, IPB, HFP, CHM7, MGO, CA ####[facility] (DEFAULT)[address] [place] [address] LACTATE, BLOODon 06-02-2024 Lactate, Blood 2.1 mmol/L High 0.5-1.6 [facility] Comment on above: Result Comment: Lact ate results >/= 2.0 mmol/L should be followed up with a measurement 2 hours later for patients with suspicion of sepsis. Performed By: #### L ACT ####[facility] (DEFAULT)[address] [place] [address] MAGNESIUMon 06-02-2024 Magnesium [Mass/Vol] 1.4 mg/dL Low 1.6-2.6 [facility] Comment on above: Performed By: #### L ABCYCR, IPB, HFP, CHM7, MGO, CA ####[facility] (DEFAULT)[address] [place] [address] PHOSPHATE, INORGANICon 06-02 Phosphorous 3.0 mg/dL Normal 2.2-4.6 [facility] Comment on above: Performed By: #### L ABCYCR, IPB, HFP, CHM7, MGO, CA ####[facility] (DEFAULT)[address] [place] [address] PT,INR,PTTon 06-02-2024 aPTT Coag (Bld) [Time] 31.2 s Normal 24.0-34.3 [facility] Comment on above: Performed By: #### P TPTT ####[facility] (DEFAULT)[address] [place] [address] INR Coag (PPP) [Relative time] 1.4 {INR} High 0.9-1.1 [facility] Comment on above: Performed By: #### P TPTT ####[facility] (DEFAULT)[address] [place] [address] PT Coag (PPP) [Time] 17.0 s High 11.9-14.2 [facility] Comment on above: Performed By: #### P TPTT ####[facility] (DEFAULT)[address] [place] [address] TACROLIMUS LEVEL, TROUGH (NE E DRUG LEVEL)on 06-02-2024 Tacrolimus, Trough 22.8 ng/mL Normal Bone Veronique ow Transplant: 5.0-15.0 Kidney/Pancre atic Transplant: 0 to 3 months: 8.0-10.0, 3 to 12 months: 6.0-8.0, >12 months: 4.0-6.0 [facility] Comment on above: Order Comment: Pleas e draw at specified interval PRIOR to dose. Do not hold dose to wait for level. Specimens batched twice per day, (M-F) and once per day weekendsMethod performed is a chemiluminescent microparticle immunoasssay on the [employer] i2000.The range is based on experience at [facility] and users should be aware that target concentrations vary widely depending on concomitant therapy, time post-transplant, and desired degree of immunosuppression. Performed By: #### T ACRO ####[facility] (DEFAULT)[address] [place] [address] CALCIUMon 06-01-2024 Calcium [Mass/Vol] 8.5 mg/dL Low 8.6-10.5 [facility] Comment on above: Performed By: #### I PB, HFP, CHM7, MGO, CA ####[facility] (DEFAULT)[address] [place] [address] CBC,PLATELETSon 06-01-2024 Hematocrit (Bld) [Volume fraction] 27.8 % Low 39.6-48.8 [facility] Comment on above: Performed By: #### H EMOGC ####[facility] (DEFAULT)[address] [place] [address], [place] [address] Hemoglobin (Bld) [Mass/Vol] 9.2 g/dL Low 13.4-16.8 [facility] Comment on above: Performed By: #### H EMOGC ####[facility] (DEFAULT)[address] [place] [address], [place] [address] MCV (RBC) [Entitic vol] 95.5 fL High 79.0-94.5 [facility] Comment on above: Performed By: #### H EMO ####[facility] (DEFAULT)[address] [place] [address] Mean Cell Hgb 31.6 pg Normal 26.1-33.3 [facility] Comment on above: Performed By: #### H EMOGC ####[facility] (DEFAULT)[address] [place] [address] Mean Cell Hgb Conc 33.1 g/dL Normal 31.9-36.5 [facility] Comment on above: Performed By: #### H EMOGC ####[facility] (DEFAULT)[address] [place] [address], [place] [address] Platelet mean volume (Bld) [Entitic vol] 12.8 fL High 8.7-12.3 [facility] Comment on above: Performed By: #### H EMOGC ####[facility] (DEFAULT)[address] [place] [address] Platelets (Bld) [#/Vol] 202 10*3/uL Normal 146-337 [facility] Comment on above: Performed By: #### H EMO ####[facility] (DEFAULT)[address] [place] [address] RBC (Bld) [#/Vol] 2.91 10*6/uL Low 4.38-5.83 [facility] Comment on above: Performed By: #### H EMO ####[facility] (DEFAULT)[address] [place] [address] RBC Distribution 15.9 % High 10.9-14.3 [facility] Comment on above: Performed By: #### H EMO ####[facility] (DEFAULT)[address] [place] [address] WBC (Bld) [#/Vol] 10.88 10*3/uL High 3.73-10.10 [facility] Comment on above: Performed By: #### H EMO ####[facility] (DEFAULT)[address] [place] [address] CHEM 7 (LYTES,BUN,CREA,GLUC) on 06-01-2024 Anion gap [Moles/Vol] 13 mmol/L Normal 7-17 [facility] Comment on above: Performed By: #### I PB, HFP, CHM7, MGO, CA ####[facility] (DEFAULT)[address] [place] [address] Chloride [Moles/Vol] 96 mmol/L Low 98-108 [facility] Comment on above: Performed By: #### I PB, HFP, CHM7, MGO, CA ####[facility] (DEFAULT)[address] [place] [address] CO2 [Moles/Vol] 26 mmol/L Normal 21-31 [facility] Comment on above: Performed By: #### I PB, HFP, CHM7, MGO, CA ####[facility] (DEFAULT)[address] [place] [address] Creatinine [Mass/Vol] 0.50 mg/dL Low 0.70-1.30 [facility] Comment on above: Performed By: #### I PB, HFP, CHM7, MGO, CA ####[facility] (DEFAULT)[address] [place] [address] eGFR, CKD-EPI, Male > Normal >=60 [facility] Comment on above: Result Comment: Repo rted eGFR is based on the CKD-EPI 2020 equation using creatinine, age, and sex. Performed By: #### I PB, HFP, CHM7, MGO, CA ####[facility] (DEFAULT)[address] [place] [address] Glucose [Mass/Vol] 88 mg/dL Normal Nonfastin -179 mg/dL; Fastin-99 [facility] Comment on above: Performed By: #### I PB, HFP, CHM7, MGO, CA ####[facility] (DEFAULT)[address] [place] [address] Osmolality [Osmolality] 276 mosm/kg Low 278-305 [facility] Comment on above: Performed By: #### I PB, HFP, CHM7, MGO, CA ####[facility] (DEFAULT)[address] [place] [address] Potassium [Moles/Vol] 4.2 mmol/L Normal 3.5-5.0 [facility] Comment on above: Performed By: #### I PB, HFP, CHM7, MGO, CA ####[facility] (DEFAULT)[address] [place] [address] Sodium [Moles/Vol] 131 mmol/L Low 135-145 [facility] Comment on above: Performed By: #### I PB, HFP, CHM7, MGO, CA ####[facility] (DEFAULT)[address] [place] [address] Urea nitrogen [Mass/Vol] 15 mg/dL Normal 7-25 [facility] Comment on above: Performed By: #### I PB, HFP, CHM7, MGO, CA ####[facility] (DEFAULT)[address] [place] [address] Urea nitrogen/Creatinine [Mass ratio] 30 mg/mg Normal [facility] Comment on above: Performed By: #### I PB, HFP, CHM7, MGO, CA ####[facility] (DEFAULT)[address] [place] [address] HEPATIC FUNCTION PANELon Albumin [Mass/Vol] 3.4 g/dL Low 3.5-5.0 [facility] Comment on above: Performed By: #### I PB, HFP, CHM7, MGO, CA ####[facility] (DEFAULT)[address] [place] [address] ALP [Catalytic activity/Vol] 247 U/L High 32-126 [facility] Comment on above: Performed By: #### I PB, HFP, CHM7, MGO, CA ####[facility] (DEFAULT)[address] [place] [address] ALT [Catalytic activity/Vol] 35 U/L Normal 10-52 [facility] Comment on above: Performed By: #### I PB, HFP, CHM7, MGO, CA ####[facility] (DEFAULT)[address] [place] [address] AST [Catalytic activity/Vol] 23 U/L Normal 10-39 [facility] Comment on above: Performed By: #### I PB, HFP, CHM7, MGO, CA ####[facility] (DEFAULT)[address] [place] [address] Bilirubin [Mass/Vol] 2.2 mg/dL High <1.5 [facility] Comment on above: Performed By: #### I PB, HFP, CHM7, MGO, CA ####[facility] (DEFAULT)[address] [place] [address] Bilirubin.indirect [Mass/Vol] 0.9 mg/dL High <0.3 [facility] Comment on above: Performed By: #### I PB, HFP, CHM7, MGO, CA ####[facility] (DEFAULT)[address] [place] [address] Protein [Mass/Vol] 5.7 g/dL Low 6.4-8.3 [facility] Comment on above: Performed By: #### I PB, HFP, CHM7, MGO, CA ####[facility] (DEFAULT)[address] [place] [address] LACTATE, BLOODon 06-01-2024 Lactate, Blood 1.4 mmol/L Normal 0.5-1.6 [facility] Comment on above: Performed By: #### L ACT ####[facility] (DEFAULT)[address] [place] [address] MAGNESIUMon 06-01-2024 Magnesium [Mass/Vol] 1.5 mg/dL Low 1.6-2.6 [facility] Comment on above: Performed By: #### I PB, HFP, CHM7, MGO, CA ####[facility] (DEFAULT)[address] [place] [address] PHOSPHATE, INORGANICon 06-01 Phosphorous 2.9 mg/dL Normal 2.2-4.6 [facility] Comment on above: Performed By: #### I PB, HFP, CHM7, MGO, CA ####[facility] (DEFAULT)[address] [place] [address] PT,INR,PTTon 06-01-2024 aPTT Coag (Bld) [Time] 29.4 s Normal 24.0-34.3 [facility] Comment on above: Performed By: #### P TPTT ####[facility] (DEFAULT)[address] [place] [address] INR Coag (PPP) [Relative time] 1.2 {INR} High 0.9-1.1 [facility] Comment on above: Performed By: #### P TPTT ####[facility] (DEFAULT)[address] [place] [address] PT Coag (PPP) [Time] 14.9 s High 11.9-14.2 [facility] Comment on above: Performed By: #### P TPTT ####[facility] (DEFAULT)[address] [place] [address] TACROLIMUS LEVEL, TROUGH (NE E DRUG LEVEL)on 06-01-2024 Tacrolimus, Trough 8.5 ng/mL Normal Bone Veronique ow Transplant: 5.0-15.0 Kidney/Pancre atic Transplant: 0 to 3 months: 8.0-10.0, 3 to 12 months: 6.0-8.0, >12 months: 4.0-6.0 [facility] Comment on above: Order Comment: Pleas e draw at specified interval PRIOR to dose. Do not hold dose to wait for level. Specimens batched twice per day, (M-F) and once per day weekendsMethod performed is a chemiluminescent microparticle immunoasssay on the [employer] i2000.The range is based on experience at [facility] and users should be aware that target concentrations vary widely depending on concomitant therapy, time post-transplant, and desired degree of immunosuppression. Performed By: #### T ACRO ####[facility] (DEFAULT)[address] [place] [address] XR ABDOMEN 1 VIEW PORTABLEon 06-01-2024 XR ABDOMEN [address] [facility] XR ABDOMEN [address] [facility] XR ABDOMEN [address] [facility] XR ABDOMEN [address] [facility] CALCIUMon 05-31-2024 Calcium [Mass/Vol] 8.4 mg/dL Low 8.6-10.5 [facility] Comment on above: Performed By: #### I PB, HFP, CHM7, MGO, CA ####[facility] (DEFAULT)[address] [place] [address] CBC,PLATELETSon 05-31-2024 Hematocrit (Bld) [Volume fraction] 27.8 % Low 39.6-48.8 [facility] Comment on above: Performed By: #### [facility] ####[facility] (DEFAULT)[address] [place] [address] Hemoglobin (Bld) [Mass/Vol] 9.2 g/dL Low 13.4-16.8 [facility] Comment on above: Performed By: #### H EMOGC ####[facility] (DEFAULT)[address] [place] [address] MCV (RBC) [Entitic vol] 94.6 fL High 79.0-94.5 [facility] Comment on above: Performed By: #### H EMO ####[facility] (DEFAULT)[address] [place] [address] Mean Cell Hgb 31.3 pg Normal 26.1-33.3 [facility] Comment on above: Performed By: #### H EMO ####[facility] (DEFAULT)[address] [place] [address] Mean Cell Hgb Conc 33.1 g/dL Normal 31.9-36.5 [facility] Comment on above: Performed By: #### H EMOGC ####[facility] (DEFAULT)[address] [place] [address] Platelet mean volume (Bld) [Entitic vol] 12.1 fL Normal 8.7-12.3 [facility] Comment on above: Performed By: #### H EMO ####[facility] (DEFAULT)[address] [place] [address] Platelets (Bld) [#/Vol] 210 10*3/uL Normal 146-337 [facility] Comment on above: Performed By: #### H EMO ####[facility] (DEFAULT)[address] [place] [address] RBC (Bld) [#/Vol] 2.94 10*6/uL Low 4.38-5.83 [facility] Comment on above: Performed By: #### H EMO ####[facility] (DEFAULT)[address] [place] [address] RBC Distribution 15.8 % High 10.9-14.3 [facility] Comment on above: Performed By: #### H EMO ####[facility] (DEFAULT)[address] [place] [address] WBC (Bld) [#/Vol] 12.38 10*3/uL High 3.73-10.10 [facility] Comment on above: Performed By: #### H EMO ####[facility] (DEFAULT)[address] [place] [address] CHEM 7 (LYTES,BUN,CREA,GLUC) on 05-31-2024 Anion gap [Moles/Vol] 11 mmol/L Normal 7-17 [facility] Comment on above: Performed By: #### I PB, HFP, CHM7, MGO, CA ####[facility] (DEFAULT)[address] [place] [address] Chloride [Moles/Vol] 99 mmol/L Normal 98-108 [facility] Comment on above: Performed By: #### I PB, HFP, CHM7, MGO, CA ####[facility] (DEFAULT)[address] [place] [address] CO2 [Moles/Vol] 27 mmol/L Normal 21-31 [facility] Comment on above: Performed By: #### I PB, HFP, CHM7, MGO, CA ####[facility] (DEFAULT)[address] [place] [address] Creatinine [Mass/Vol] 0.52 mg/dL Low 0.70-1.30 [facility] Comment on above: Performed By: #### I PB, HFP, CHM7, MGO, CA ####[facility] (DEFAULT)[address] [place] [address] eGFR, CKD-EPI, Male > Normal >=60 [facility] Comment on above: Result Comment: Repo rted eGFR is based on the CKD-EPI 2020 equation using creatinine, age, and sex. Performed By: #### I PB, HFP, CHM7, MGO, CA ####[facility] (DEFAULT)[address] [place] [address] Glucose [Mass/Vol] 111 mg/dL Normal Nonfastin -179 mg/dL; Fastin-99 [facility] Comment on above: Performed By: #### I PB, HFP, CHM7, MGO, CA ####[facility] (DEFAULT)[address] [place] [address] Osmolality [Osmolality] 281 mosm/kg Normal 278-305 [facility] Comment on above: Performed By: #### I PB, HFP, CHM7, MGO, CA ####[facility] (DEFAULT)[address] [place] [address] Potassium [Moles/Vol] 4.3 mmol/L Normal 3.5-5.0 [facility] Comment on above: Performed By: #### I PB, HFP, CHM7, MGO, CA ####[facility] (DEFAULT)[address] [place] [address] Sodium [Moles/Vol] 133 mmol/L Low 135-145 [facility] Comment on above: Performed By: #### I PB, HFP, CHM7, MGO, CA ####[facility] (DEFAULT)[address] [place] [address] Urea nitrogen [Mass/Vol] 13 mg/dL Normal 7-25 [facility] Comment on above: Performed By: #### I PB, HFP, CHM7, MGO, CA ####[facility] (DEFAULT)[address] [place] [address] Urea nitrogen/Creatinine [Mass ratio] 25 mg/mg Normal [facility] Comment on above: Performed By: #### I PB, HFP, CHM7, MGO, CA ####[facility] (DEFAULT)[address] [place] [address] HEPATIC FUNCTION PANELon Albumin [Mass/Vol] 3.4 g/dL Low 3.5-5.0 [facility] Comment on above: Performed By: #### I PB, HFP, CHM7, MGO, CA ####[facility] (DEFAULT)[address] [place] [address] ALP [Catalytic activity/Vol] 268 U/L High 32-126 [facility] Comment on above: Performed By: #### I PB, HFP, CHM7, MGO, CA ####[facility] (DEFAULT)[address] [place] [address] ALT [Catalytic activity/Vol] 37 U/L Normal 10-52 [facility] Comment on above: Performed By: #### I PB, HFP, CHM7, MGO, CA ####[facility] (DEFAULT)[address] [place] [address] AST [Catalytic activity/Vol] 22 U/L Normal 10-39 [facility] Comment on above: Performed By: #### I PB, HFP, CHM7, MGO, CA ####[facility] (DEFAULT)[address] [place] [address] Bilirubin [Mass/Vol] 2.0 mg/dL High <1.5 [facility] Comment on above: Performed By: #### I PB, HFP, CHM7, MGO, CA ####[facility] (DEFAULT)[address] [place] [address] Bilirubin.indirect [Mass/Vol] 0.9 mg/dL High <0.3 [facility] Comment on above: Performed By: #### I PB, HFP, CHM7, MGO, CA ####[facility] (DEFAULT)[address] [place] [address] Protein [Mass/Vol] 5.7 g/dL Low 6.4-8.3 [facility] Comment on above: Performed By: #### I PB, HFP, CHM7, MGO, CA ####[facility] (DEFAULT)[address] [place] [address] LACTATE, BLOODon 05-31-2024 Lactate, Blood 1.1 mmol/L Normal 0.5-1.6 [facility] Comment on above: Performed By: #### L ACT ####[facility] (DEFAULT)[address] [place] [address] MAGNESIUMon 05-31-2024 Magnesium [Mass/Vol] 1.9 mg/dL Normal 1.6-2.6 [facility] Comment on above: Performed By: #### I PB, HFP, CHM7, MGO, CA ####[facility] (DEFAULT)[address] [place] [address] PHOSPHATE, INORGANICon 05-31 Phosphorous 2.8 mg/dL Normal 2.2-4.6 [facility] Comment on above: Performed By: #### I PB, HFP, CHM7, MGO, CA ####[facility] (DEFAULT)[address] [place] [address] PT,INR,PTTon 05-31-2024 aPTT Coag (Bld) [Time] 28.4 s Normal 24.0-34.3 [facility] Comment on above: Performed By: #### P TPTT ####[facility] (DEFAULT)[address] [place] [address] INR Coag (PPP) [Relative time] 1.2 {INR} High 0.9-1.1 [facility] Comment on above: Performed By: #### P TPTT ####[facility] (DEFAULT)[address] [place] [address] PT Coag (PPP) [Time] 15.0 s High 11.9-14.2 [facility] Comment on above: Performed By: #### P TPTT ####[facility] (DEFAULT)[address] [place] [address] TACROLIMUS LEVEL, TROUGH (NE E DRUG LEVEL)on 05-31-2024 Tacrolimus, Trough 6.1 ng/mL Normal Bone Veronique ow Transplant: 5.0-15.0 Kidney/Pancre atic Transplant: 0 to 3 months: 8.0-10.0, 3 to 12 months: 6.0-8.0, >12 months: 4.0-6.0 [facility] Comment on above: Order Comment: Pleas e draw at specified interval PRIOR to dose. Do not hold dose to wait for level. Specimens batched twice per day, (M-F) and once per day weekendsMethod performed is a chemiluminescent microparticle immunoasssay on the [employer] i2000.The range is based on experience at [facility] and users should be aware that target concentrations vary widely depending on concomitant therapy, time post-transplant, and desired degree of immunosuppression. Performed By: #### T ACRO ####[facility] (DEFAULT)[address] [place] [address] BLOOD CULTUREon 05-30-2024 Bacteria identified Cx Nom (Unsp spec) NO GROWTH DAY 5 OF 5 Normal [facility] Comment on above: Order Comment: 2 Bot [...] culture bottle. Performed By: #### B LDCULT ####[facility] (DEFAULT)[address] [place] [address] CALCIUMon 05-30-2024 Calcium [Mass/Vol] 8.6 mg/dL Normal 8.6-10.5 [facility] Comment on above: Performed By: #### I PB, HFP, CHM7, MGO, CA ####[facility] (DEFAULT)[address] [place] [address] CBC,PLATELETSon 05-30-2024 Hematocrit (Bld) [Volume fraction] 29.1 % Low 39.6-48.8 [facility] Comment on above: Performed By: #### [facility] ####[facility] (DEFAULT)[address] [place] [address] Hemoglobin (Bld) [Mass/Vol] 9.7 g/dL Low 13.4-16.8 [facility] Comment on above: Performed By: #### H EMOGC ####[facility] (DEFAULT)[address] [place] [address] MCV (RBC) [Entitic vol] 94.5 fL Normal 79.0-94.5 [facility] Comment on above: Performed By: #### H EMOGC ####[facility] (DEFAULT)[address] [place] [address] Mean Cell Hgb 31.5 pg Normal 26.1-33.3 [facility] Comment on above: Performed By: #### H EMOGC ####[facility] (DEFAULT)[address] [place] [address] Mean Cell Hgb Conc 33.3 g/dL Normal 31.9-36.5 [facility] Comment on above: Performed By: #### H EMOGC ####[facility] (DEFAULT)[address] [place] [address] Platelet mean volume (Bld) [Entitic vol] 11.9 fL Normal 8.7-12.3 [facility] Comment on above: Performed By: #### H EMOGC ####[facility] (DEFAULT)[address] [place] [address] Platelets (Bld) [#/Vol] 218 10*3/uL Normal 146-337 [facility] Comment on above: Performed By: #### H EMOGC ####[facility] (DEFAULT)[address] [place] [address] RBC (Bld) [#/Vol] 3.08 10*6/uL Low 4.38-5.83 [facility] [facility] Comment on above: Performed By: #### H EMO ####[facility] (DEFAULT)[address] [place] [address] RBC Distribution 15.8 % High 10.9-14.3 [facility] Comment on above: Performed By: #### H EMOGC ####[facility] (DEFAULT)[address] [place] [address] WBC (Bld) [#/Vol] 12.45 10*3/uL High 3.73-10.10 [facility] Comment on above: Performed By: #### H EMOGC ####[facility] (DEFAULT)[address] [place] [address] CHEM 7 (LYTES,BUN,CREA,GLUC) on 05-30-2024 Anion gap [Moles/Vol] 14 mmol/L Normal 7-17 [facility] Comment on above: Performed By: #### I PB, HFP, CHM7, MGO, CA ####[facility] (DEFAULT)[address] [place] [address] Chloride [Moles/Vol] 100 mmol/L Normal 98-108 [facility] Comment on above: Performed By: #### I PB, HFP, CHM7, MGO, CA ####[facility] (DEFAULT)[address] [place] [address] CO2 [Moles/Vol] 26 mmol/L Normal 21-31 [facility] Comment on above: Performed By: #### I PB, HFP, CHM7, MGO, CA ####[facility] (DEFAULT)[address] [place] [address] Creatinine [Mass/Vol] 0.61 mg/dL Low 0.70-1.30 [facility] Comment on above: Performed By: #### I PB, HFP, CHM7, MGO, CA ####[facility] (DEFAULT)[address] [place] [address] eGFR, CKD-EPI, Male > Normal >=60 [facility] Comment on above: Result Comment: Repo rted eGFR is based on the CKD-EPI 2020 equation using creatinine, age, and sex. Performed By: #### I PB, HFP, CHM7, MGO, CA ####[facility] (DEFAULT)[address] [place] [address] Glucose [Mass/Vol] 104 mg/dL Normal Nonfastin -179 mg/dL; Fastin-99 [facility] Comment on above: Performed By: #### I PB, HFP, CHM7, MGO, CA ####[facility] (DEFAULT)[address] [place], [place] [address], [place] [address] Osmolality [Osmolality] 286 mosm/kg Normal 278-305 [facility] Comment on above: Performed By: #### I PB, HFP, CHM7, MGO, CA ####[facility] (DEFAULT)[address] [place] [address] Potassium [Moles/Vol] 3.9 mmol/L Normal 3.5-5.0 [facility] Comment on above: Performed By: #### I PB, HFP, CHM7, MGO, CA ####[facility] (DEFAULT)[address] [place] [address] Sodium [Moles/Vol] 136 mmol/L Normal 135-145 [facility] Comment on above: Performed By: #### I PB, HFP, CHM7, MGO, CA ####[facility] (DEFAULT)[address] [place] [address] Urea nitrogen [Mass/Vol] 14 mg/dL Normal 7-25 [facility] Comment on above: Performed By: #### I PB, HFP, CHM7, MGO, CA ####[facility] (DEFAULT)[address] [place] [address] Urea nitrogen/Creatinine [Mass ratio] 23 mg/mg Normal [facility] Comment on above: Performed By: #### I PB, HFP, CHM7, MGO, CA ####[facility] (DEFAULT)[address] [place] [address] HEPATIC FUNCTION PANELon Albumin [Mass/Vol] 3.4 g/dL Low 3.5-5.0 [facility] Comment on above: Performed By: #### I PB, HFP, CHM7, MGO, CA ####[facility] (DEFAULT)[address] [place] [address] ALP [Catalytic activity/Vol] 272 U/L High 32-126 [facility] Comment on above: Performed By: #### I PB, HFP, CHM7, MGO, CA ####[facility] (DEFAULT)[address] [place] [address] ALT [Catalytic activity/Vol] 44 U/L Normal 10-52 [facility] Comment on above: Performed By: #### I PB, HFP, CHM7, MGO, CA ####[facility] (DEFAULT)[address] [place] [address] AST [Catalytic activity/Vol] 29 U/L Normal 10-39 [facility] Comment on above: Performed By: #### I PB, HFP, CHM7, MGO, CA ####[facility] (DEFAULT)[address] [place] [address] Bilirubin [Mass/Vol] 2.0 mg/dL High <1.5 [facility] Comment on above: Performed By: #### I PB, HFP, CHM7, MGO, CA ####[facility] (DEFAULT)[address] [place] [address] Bilirubin.indirect [Mass/Vol] 0.8 mg/dL High <0.3 [facility] Comment on above: Performed By: #### I PB, HFP, CHM7, MGO, CA ####[facility] (DEFAULT)[address] [place] [address] Protein [Mass/Vol] 5.8 g/dL Low 6.4-8.3 [facility] Comment on above: Performed By: #### I PB, HFP, CHM7, MGO, CA ####[facility] (DEFAULT)[address] [place] [address] LACTATE, BLOODon 05-30-2024 Lactate, Blood 1.7 mmol/L High 0.5-1.6 [facility] Comment on above: Performed By: #### L ACT ####[facility] (DEFAULT)[address] [place] [address] MAGNESIUMon 05-30-2024 Magnesium [Mass/Vol] 1.5 mg/dL Low 1.6-2.6 [facility] Comment on above: Performed By: #### I PB, HFP, CHM7, MGO, CA ####[facility] (DEFAULT)[address] [place] [address] PHOSPHATE, INORGANICon 05-30 Phosphorous 2.4 mg/dL Normal 2.2-4.6 [facility] Comment on above: Performed By: #### I PB, HFP, CHM7, MGO, CA ####[facility] [place] [address] PT,INR,PTTon 05-30-2024 aPTT Coag (Bld) [Time] 27.8 s Normal 24.0-34.3 [facility] Comment on above: Performed By: #### P TPTT ####[facility] (DEFAULT)[address] [place] [address] INR Coag (PPP) [Relative time] 1.2 {INR} High 0.9-1.1 [facility] Comment on above: Performed By: #### P TPTT ####[facility] (DEFAULT)[address] [place] [address] PT Coag (PPP) [Time] 15.6 s High 11.9-14.2 [facility] Comment on above: Performed By: #### P TPTT ####[facility] (DEFAULT)[address] [place] [address] TACROLIMUS LEVEL, TROUGH (NE E DRUG LEVEL)on 05-30-2024 Tacrolimus, Trough 6.2 ng/mL Normal Bone Veronique ow Transplant: 5.0-15.0 Kidney/Pancre atic Transplant: 0 to 3 months: 8.0-10.0, 3 to 12 months: 6.0-8.0, >12 months: 4.0-6.0 [facility] Comment on above: Order Comment: Pleas e draw at specified interval PRIOR to dose. Do not hold dose to wait for level. Specimens batched twice per day, (M-F) and once per day weekendsMethod performed is a chemiluminescent microparticle immunoasssay on the 71lbs [employer] i2000.The range is based on experience at [facility] and users should be aware that target concentrations vary widely depending on concomitant therapy, time post-transplant, and desired degree of immunosuppression. Performed By: #### T ACRO ####[facility] (DEFAULT)[address] [place] [address] US ABDOMEN LIVER TRANSPLANT DOPPLERon 05-30-2024 US ABDOMEN LIVER TRANSPLANT DOPPLER Normal [facility] XR ABDOMEN 1 VIEWon 05-31-19 XR ABDOMEN 1 VIEW Normal [facility] CALCIUMon 05-29-2024 Calcium [Mass/Vol] 8.4 mg/dL Low 8.6-10.5 [facility] Comment on above: Performed By: #### I PB, HFP, CHM7, MGO, CA ####[facility] (DEFAULT)[address] [place] [address] CBC,PLATELETSon 05-29-2024 Hematocrit (Bld) [Volume fraction] 25.4 % Low 39.6-48.8 [facility] Comment on above: Performed By: #### H EMOGC ####[facility] (DEFAULT)[address] [place] [address] Hemoglobin (Bld) [Mass/Vol] 8.4 g/dL Low 13.4-16.8 [facility] Comment on above: Performed By: #### H EMOGC ####[facility] (DEFAULT)[address] [place] [address] MCV (RBC) [Entitic vol] 94.4 fL Normal 79.0-94.5 [facility] Comment on above: Performed By: #### H EMOGC ####[facility] (DEFAULT)[address] [place] [address] Mean Cell Hgb 31.2 pg Normal 26.1-33.3 [facility] Comment on above: Performed By: #### H EMOGC ####[facility] (DEFAULT)[address] [place] [address] Mean Cell Hgb Conc 33.1 g/dL Normal 31.9-36.5 [facility] Comment on above: Performed By: #### H EMOGC ####[facility] (DEFAULT)[address] [place] [address] Platelet mean volume (Bld) [Entitic vol] 12.8 fL High 8.7-12.3 [facility] Comment on above: Performed By: #### H EMOGC ####[facility] (DEFAULT)[address] [place] [address] Platelets (Bld) [#/Vol] 186 10*3/uL Normal 146-337 [facility] Comment on above: Performed By: #### H EMOGC ####[facility] (DEFAULT)[address] [place] [address] RBC (Bld) [#/Vol] 2.69 10*6/uL Low 4.38-5.83 [facility] Comment on above: Performed By: #### H EMOGC ####[facility] (DEFAULT)[address] [place] [address] RBC Distribution 15.8 % High 10.9-14.3 [facility] Comment on above: Performed By: #### H EMOGC ####[facility] (DEFAULT)[address] [place] [address] WBC (Bld) [#/Vol] 13.50 10*3/uL High 3.73-10.10 [facility] Comment on above: Performed By: #### H EMOGC ####[facility] (DEFAULT)[address] [place] [address] CHEM 7 (LYTES,BUN,CREA,GLUC) on 05-29-2024 Anion gap [Moles/Vol] 11 mmol/L Normal 7-17 [facility] Comment on above: Performed By: #### I PB, HFP, CHM7, MGO, CA ####[facility] (DEFAULT)[address] [place] [address] Chloride [Moles/Vol] 102 mmol/L Normal 98-108 [facility] Comment on above: Performed By: #### I PB, HFP, CHM7, MGO, CA ####[facility] (DEFAULT)[address] [place] [address] CO2 [Moles/Vol] 27 mmol/L Normal 21-31 [facility] Comment on above: Performed By: #### I PB, HFP, CHM7, MGO, CA ####[facility] (DEFAULT)[address] [place] [address] Creatinine [Mass/Vol] 0.58 mg/dL Low 0.70-1.30 [facility] Comment on above: Performed By: #### I PB, HFP, CHM7, MGO, CA ####[facility] (DEFAULT)[address] [place] [address] eGFR, CKD-EPI, Male > Normal >=60 [facility] Comment on above: Result Comment: Repo rted eGFR is based on the CKD-EPI 2020 equation using creatinine, age, and sex. Performed By: #### I PB, HFP, CHM7, MGO, CA ####[facility] (DEFAULT)[address] [place] [address] Glucose [Mass/Vol] 95 mg/dL Normal Nonfastin -179 mg/dL; Fastin-99 [facility] Comment on above: Performed By: #### I PB, HFP, CHM7, MGO, CA ####[facility] (DEFAULT)[address] [place] [address] Osmolality [Osmolality] 288 mosm/kg Normal 278-305 [facility] Comment on above: Performed By: #### I PB, HFP, CHM7, MGO, CA ####[facility] (DEFAULT)[address] [place] [address] Potassium [Moles/Vol] 4.0 mmol/L Normal 3.5-5.0 [facility] Comment on above: Performed By: #### I PB, HFP, CHM7, MGO, CA ####[facility] (DEFAULT)[address] [place] [address] Sodium [Moles/Vol] 136 mmol/L Normal 135-145 [facility] Comment on above: Performed By: #### I PB, HFP, CHM7, MGO, CA ####[facility] (DEFAULT)[address] [place] [address] Urea nitrogen [Mass/Vol] 20 mg/dL Normal 7-25 [facility] Comment on above: Performed By: #### I PB, HFP, CHM7, MGO, CA ####[facility] (DEFAULT)[address] [place] [address] Urea nitrogen/Creatinine [Mass ratio] 34 mg/mg Normal [facility] Comment on above: Performed By: #### I PB, HFP, CHM7, MGO, CA ####[facility] (DEFAULT)[address] [place] [address] HEPATIC FUNCTION PANELon Albumin [Mass/Vol] 3.0 g/dL Low 3.5-5.0 [facility] Comment on above: Performed By: #### I PB, HFP, CHM7, MGO, CA ####[facility] (DEFAULT)[address] [place] [address] ALP [Catalytic activity/Vol] 251 U/L High 32-126 [facility] Comment on above: Performed By: #### I PB, HFP, CHM7, MGO, CA ####[facility] (DEFAULT)[address] [place] [address] ALT [Catalytic activity/Vol] 55 U/L High 10-52 [facility] Comment on above: Performed By: #### I PB, HFP, CHM7, MGO, CA ####[facility] (DEFAULT)[address] [place] [address] AST [Catalytic activity/Vol] 45 U/L High 10-39 [facility] Comment on above: Performed By: #### I PB, HFP, CHM7, MGO, CA ####[facility] (DEFAULT)[address] [place] [address] Bilirubin [Mass/Vol] 1.8 mg/dL High <1.5 [facility] Comment on above: Performed By: #### I PB, HFP, CHM7, MGO, CA ####[facility] (DEFAULT)[address] [place] [address] Bilirubin.indirect [Mass/Vol] 0.8 mg/dL High <0.3 [facility] Comment on above: Performed By: #### I PB, HFP, CHM7, MGO, CA ####[facility] (DEFAULT)[address] [place] [address] Protein [Mass/Vol] 5.4 g/dL Low 6.4-8.3 [facility] Comment on above: Performed By: #### I PB, HFP, CHM7, MGO, CA ####[facility] (DEFAULT)[address] [place] [address] LACTATE, BLOODon 05-29-2024 Lactate, Blood 1.4 mmol/L Normal 0.5-1.6 [facility] Comment on above: Performed By: #### L ACT ####[facility] (DEFAULT)[address] [place] [address] MAGNESIUMon 05-29-2024 Magnesium [Mass/Vol] 1.6 mg/dL Normal 1.6-2.6 [facility] Comment on above: Performed By: #### I PB, HFP, CHM7, MGO, CA ####[facility] (DEFAULT)[address] [place] [address] PHOSPHATE, INORGANICon 05-29 Phosphorous 1.6 mg/dL Low 2.2-4.6 [facility] Comment on above: Performed By: #### I PB, HFP, CHM7, MGO, CA ####[facility] (DEFAULT)[address] [place] [address] PT,INR,PTTon 05-29-2024 aPTT Coag (Bld) [Time] 29.3 s Normal 24.0-34.3 [facility] Comment on above: Performed By: #### P TPTT ####[facility] (DEFAULT)[address] [facility] [place] [address] INR Coag (PPP) [Relative time] 1.4 {INR} High 0.9-1.1 [facility] Comment on above: Performed By: #### P TPTT ####[facility] (DEFAULT)[address] [place] [address] PT Coag (PPP) [Time] 16.7 s High 11.9-14.2 [facility] Comment on above: Performed By: #### P TPTT ####[facility] (DEFAULT)[address] [facility] [place] [address] TACROLIMUS LEVEL, TROUGH (NE E DRUG LEVEL)on 05-29-2024 Tacrolimus, Trough 7.4 ng/mL Normal Bone Veronique ow Transplant: 5.0-15.0 Kidney/Pancre atic Transplant: 0 to 3 months: 8.0-10.0, 3 to 12 months: 6.0-8.0, >12 months: 4.0-6.0 [facility] Comment on above: Order Comment: Pleas e draw at specified interval PRIOR to dose. Do not hold dose to wait for level. Specimens batched twice per day, (M-F) and once per day weekendsMethod performed is a chemiluminescent microparticle immunoasssay on the 71lbs [employer] i2000.The range is based on experience at [facility] and users should be aware that target concentrations vary widely depending on concomitant therapy, time post-transplant, and desired degree of immunosuppression. Performed By: #### T ACRO ####[facility] (DEFAULT)[address] [place] [address] CALCIUMon 05-28-2024 Calcium [Mass/Vol] 8.2 mg/dL Low 8.6-10.5 [facility] Comment on above: Performed By: #### I PB, HFP, CHM7, MGO, CA ####[facility] (DEFAULT)[address] [place] [address] CBC,PLATELETSon 05-28-2024 Hematocrit (Bld) [Volume fraction] 24.0 % Low 39.6-48.8 [facility] Comment on above: Performed By: #### H EMOGC ####[facility] (DEFAULT)[address] [place] [address] Hemoglobin (Bld) [Mass/Vol] 7.9 g/dL Low 13.4-16.8 [facility] Comment on above: Performed By: #### H EMOGC ####[facility] (DEFAULT)[address] [place] [address] MCV (RBC) [Entitic vol] 96.0 fL High 79.0-94.5 [facility] Comment on above: Performed By: #### H EMOGC ####[facility] (DEFAULT)[address] [place] [address] Mean Cell Hgb 31.6 pg Normal 26.1-33.3 [facility] Comment on above: Performed By: #### H EMOGC ####[facility] (DEFAULT)[address] [place] [address] Mean Cell Hgb Conc 32.9 g/dL Normal 31.9-36.5 [facility] Comment on above: Performed By: #### H EMOGC ####[facility] (DEFAULT)[address] [place] [address] Platelet mean volume (Bld) [Entitic vol] 12.3 fL Normal 8.7-12.3 [facility] Comment on above: Performed By: #### H EMO ####[facility] (DEFAULT)[address] [place] [address] Platelets (Bld) [#/Vol] 166 10*3/uL Normal 146-337 [facility] Comment on above: Performed By: #### H EMO ####[facility] (DEFAULT)[address] [place] [address] RBC (Bld) [#/Vol] 2.50 10*6/uL Low 4.38-5.83 [facility] Comment on above: Performed By: #### [facility] ####[facility] (DEFAULT)[address] [place] [address] RBC Distribution 16.6 % High 10.9-14.3 [facility] Comment on above: Performed By: #### [facility] ####[facility] (DEFAULT)[address] [place] [address] WBC (Bld) [#/Vol] 16.78 10*3/uL High 3.73-10.10 [facility] Comment on above: Performed By: #### [facility] [place] ####[facility] (DEFAULT)[address] [place] [address] CHEM 7 (LYTES,BUN,CREA,GLUC) on 05-28-2024 Anion gap [Moles/Vol] 10 mmol/L Normal 7-17 [facility] Comment on above: Performed By: #### I PB, HFP, CHM7, MGO, CA ####[facility] (DEFAULT)[address] [place] [address] Chloride [Moles/Vol] 103 mmol/L Normal 98-108 [facility] Comment on above: Performed By: #### I PB, HFP, CHM7, MGO, CA ####[facility] (DEFAULT)[address] [place] [address] CO2 [Moles/Vol] 29 mmol/L Normal 21-31 [facility] Comment on above: Performed By: #### I PB, HFP, CHM7, MGO, CA ####[facility] (DEFAULT)[address] [place] [address] Creatinine [Mass/Vol] 0.51 mg/dL Low 0.70-1.30 [facility] Comment on above: Performed By: #### I PB, HFP, CHM7, MGO, CA ####[facility] (DEFAULT)[address] [place] [address] eGFR, CKD-EPI, Male > Normal >=60 [facility] Comment on above: Result Comment: Repo rted eGFR is based on the CKD-EPI 2020 equation using creatinine, age, and sex. Performed By: #### I PB, HFP, CHM7, MGO, CA ####[facility] (DEFAULT)[address] [place] [address] Glucose [Mass/Vol] 77 mg/dL Normal Nonfastin -179 mg/dL; Fastin-99 [facility] Comment on above: Performed By: #### I PB, HFP, CHM7, MGO, CA ####[facility] (DEFAULT)[address] [place] [address] Osmolality [Osmolality] 291 mosm/kg Normal 278-305 [facility] Comment on above: Performed By: #### I PB, HFP, CHM7, MGO, CA ####[facility] (DEFAULT)[address] [place] [address] Potassium [Moles/Vol] 4.1 mmol/L Normal 3.5-5.0 [facility] Comment on above: Performed By: #### I PB, HFP, CHM7, MGO, CA ####[facility] (DEFAULT)[address] [place] [address] Sodium [Moles/Vol] 138 mmol/L Normal 135-145 [facility] Comment on above: Performed By: #### I PB, HFP, CHM7, MGO, CA ####[facility] (DEFAULT)[address] [place] [address] Urea nitrogen [Mass/Vol] 22 mg/dL Normal 7-25 [facility] Comment on above: Performed By: #### I PB, HFP, CHM7, MGO, CA ####[facility] (DEFAULT)[address] [place] [address] Urea nitrogen/Creatinine [Mass ratio] 43 mg/mg Normal [facility] Comment on above: Performed By: #### I PB, HFP, CHM7, MGO, CA ####[facility] (DEFAULT)[address] [place] [address] HEPATIC FUNCTION PANELon Albumin [Mass/Vol] 3.0 g/dL Low 3.5-5.0 [facility] Comment on above: Performed By: #### I PB, HFP, CHM7, MGO, CA ####[facility] (DEFAULT)[address] [place] [address] ALP [Catalytic activity/Vol] 227 U/L High 32-126 [facility] Comment on above: Performed By: #### I PB, HFP, CHM7, MGO, CA ####[facility] (DEFAULT)[address] [place] [address] ALT [Catalytic activity/Vol] 70 U/L High 10-52 [facility] Comment on above: Performed By: #### I PB, HFP, CHM7, MGO, CA ####[facility] (DEFAULT)[address] [place] [address] AST [Catalytic activity/Vol] 85 U/L High 10-39 [facility] Comment on above: Performed By: #### I PB, HFP, CHM7, MGO, CA ####[facility] (DEFAULT)[address] [place] [address] Bilirubin [Mass/Vol] 2.1 mg/dL High <1.5 [facility] Comment on above: Performed By: #### I PB, HFP, CHM7, MGO, CA ####[facility] (DEFAULT)[address] [place] [address] Bilirubin.indirect [Mass/Vol] 1.0 mg/dL High <0.3 [facility] Comment on above: Performed By: #### I PB, HFP, CHM7, MGO, CA ####[facility] (DEFAULT)[address] [place] [address] Protein [Mass/Vol] 5.3 g/dL Low 6.4-8.3 [facility] Comment on above: Performed By: #### I PB, HFP, CHM7, MGO, CA ####[facility] (DEFAULT)[address] [place] [address] LACTATE, BLOODon 05-28-2024 Lactate, Blood 1.2 mmol/L Normal 0.5-1.6 [facility] Comment on above: Performed By: #### L ACT ####[facility] (DEFAULT)[address] [place] [address] Lactate, Blood 1.3 mmol/L Normal 0.5-1.6 [facility] Comment on above: Performed By: #### L ACT ####[facility] (DEFAULT)[address] [place] [address] MAGNESIUMon 05-28-2024 Magnesium [Mass/Vol] 1.8 mg/dL Normal 1.6-2.6 [facility] Comment on above: Performed By: #### I PB, HFP, CHM7, MGO, CA ####[facility] (DEFAULT)[address] [place] [address] PHOSPHATE, INORGANICon 05-28 Phosphorous 2.9 mg/dL Normal 2.2-4.6 [facility] Comment on above: Performed By: #### I PB ####[facility] (DEFAULT)[address] [place] [address] Phosphorous 1.7 mg/dL Low 2.2-4.6 [facility] Comment on above: Performed By: #### I PB, HFP, CHM7, MGO, CA ####[facility] (DEFAULT)[address] [place] [address] PT,INR,PTTon 05-28-2024 aPTT Coag (Bld) [Time] 30.6 s Normal 24.0-34.3 [facility] Comment on above: Performed By: #### P TPTT ####[facility] (DEFAULT)[address] [place], [place] [address], [place] [address] INR Coag (PPP) [Relative time] 1.6 {INR} High 0.9-1.1 [facility] Comment on above: Performed By: #### P TPTT ####[facility] (DEFAULT)[address] [place] [address] PT Coag (PPP) [Time] 18.8 s High 11.9-14.2 [facility] Comment on above: Performed By: #### P TPTT ####[facility] (DEFAULT)[address] [place] [address], [place] [address] TACROLIMUS LEVEL, TROUGH (NE E DRUG LEVEL)on 05-28-2024 Tacrolimus, Trough 11.5 ng/mL Normal Bone Veronique ow Transplant: 5.0-15.0 Kidney/Pancre atic Transplant: 0 to 3 months: 8.0-10.0, 3 to 12 months: 6.0-8.0, >12 months: 4.0-6.0 [facility] Comment on above: Order Comment: Pleas e draw at specified interval PRIOR to dose. Do not hold dose to wait for level. Specimens batched twice per day, (M-F) and once per day weekendsMethod performed is a chemiluminescent microparticle immunoasssay on the [employer] i2000.The range is based on experience at [facility] and users should be aware that target concentrations vary widely depending on concomitant therapy, time post-transplant, and desired degree of immunosuppression. Performed By: #### T ACRO ####[facility] (DEFAULT)[address] [place] [address] US ABDOMEN LIVER TRANSPLANT DOPPLERon 05-28-2024 US ABDOMEN LIVER TRANSPLANT DOPPLER Normal [facility] XR CHEST 1 VIEW PORTABLEon 0 05-28-2024 XR CHEST [address] [facility] CALCIUMon 05-27-2024 Calcium [Mass/Vol] 8.6 mg/dL Normal 8.6-10.5 [facility] Comment on above: Performed By: #### I PB, HFP, CHM7, MGO, CA ####[facility] (DEFAULT)[address] [place] [address] Calcium [Mass/Vol] 8.4 mg/dL Low 8.6-10.5 [facility] Comment on above: Performed By: #### H FP, IPB, CHM7, MGO, CA ####[facility] (DEFAULT)[address] [place] [address] Calcium [Mass/Vol] 8.5 mg/dL Low 8.6-10.5 [facility] Comment on above: Performed By: #### I PB, HFP, CHM7, MGO, CA ####[facility] (DEFAULT)[address] [place] [address] CBC AND ELECTRONIC DIFFon Basophils (Bld) [#/Vol] 0.04 10*3/uL Normal 0.00-0.09 [facility] Comment on above: Performed By: #### L [id number] ####[facility] (DEFAULT)[address] [place] [address] Basophils/100 WBC (Bld) 0.2 % Normal [facility] Comment on above: Performed By: #### L AB980 ####[facility] (DEFAULT)[address] [place] [address] DIFF STATUS Electronic Differential Normal [facility] Comment on above: Performed By: #### L [id number] ####[facility] (DEFAULT)[address] [place] [address] Eosinophils (Bld) [#/Vol] 0.18 10*3/uL Normal 0.00-0.48 [facility] Comment on above: Performed By: #### L AB980 ####[facility] (DEFAULT)[address] [place] [address] Eosinophils/100 WBC (Bld) 0.9 % Normal [facility] Comment on above: Performed By: #### L [id number] ####[facility] (DEFAULT)[address] [place] [address] Hematocrit (Bld) [Volume fraction] 23.1 % Low 39.6-48.8 [facility] Comment on above: Performed By: #### L [id number] ####[facility] (DEFAULT)[address] [place] [address] Hemoglobin (Bld) [Mass/Vol] 7.7 g/dL Low 13.4-16.8 [facility] Comment on above: Performed By: #### L AB980 ####[facility] (DEFAULT)[address] [place] [address] Immature Grans % 1.0 % Normal [facility] Comment on above: Performed By: #### L AB980 ####[facility] (DEFAULT)[address] [place] [address] Immature Grans Absolute 0.20 K/uL High <=0.07 [facility] Comment on above: Performed By: #### L [id number] ####[facility] (DEFAULT)[address] [place] [address] Lymphocytes (Bld) [#/Vol] 0.25 10*3/uL Low 0.83-3.57 [facility] Comment on above: Performed By: #### L AB980 ####[facility] (DEFAULT)[address] [place] [address] Lymphocytes/100 WBC (Bld) 1.2 % Normal [facility] Comment on above: Performed By: #### L [id number] ####[facility] (DEFAULT)[address] [place] [address] MCV (RBC) [Entitic vol] 97.1 fL High 79.0-94.5 [facility] Comment on above: Performed By: #### L AB980 ####[facility] (DEFAULT)[address] [place] [address] Mean Cell Hgb 32.4 pg Normal 26.1-33.3 [facility] Comment on above: Performed By: #### L AB980 ####[facility] (DEFAULT)[address] [place] [address] Mean Cell Hgb Conc 33.3 g/dL Normal 31.9-36.5 [facility] Comment on above: Performed By: #### L AB980 ####[facility] (DEFAULT)[address] [place] [address] Monocytes (Bld) [#/Vol] 0.41 10*3/uL Normal 0.24-0.93 [facility] Comment on above: Performed By: #### L AB980 ####[facility] (DEFAULT)[address] [place] [address] Monocytes/100 WBC (Bld) 2.0 % Normal [facility] Comment on above: Performed By: #### L AB980 ####[facility] (DEFAULT)[address] [place] [address] Nucleated RBC 0.0 /100 WBC Normal <=0.2 [facility] Comment on above: Performed By: #### L [id number] ####[facility] (DEFAULT)[address] [place] [address] Platelet mean volume (Bld) [Entitic vol] 11.8 fL Normal 8.7-12.3 [facility] Comment on above: Performed By: #### L [id number] ####[facility] (DEFAULT)[address] [place] [address] Platelets (Bld) [#/Vol] 146 10*3/uL Normal 146-337 [facility] Comment on above: Performed By: #### L AB980 ####[facility] (DEFAULT)[address] [place] [address] RBC (Bld) [#/Vol] 2.38 10*6/uL Low 4.38-5.83 [facility] Comment on above: Performed By: #### L AB980 ####[facility] (DEFAULT)[address] [place] [address] RBC Distribution 17.5 % High 10.9-14.3 [facility] Comment on above: Performed By: #### L AB980 ####[facility] (DEFAULT)[address] [place] [address] Segs + Bands Auto 94.7 % Normal [facility] Comment on above: Performed By: #### L AB980 ####[facility] (DEFAULT)[address] [place] [address] Segs + Bands,Absolute Auto 19.21 K/uL High 1.57-6.19 [facility] Comment on above: Performed By: #### L AB980 ####[facility] (DEFAULT)[address] [place] [address] WBC (Bld) [#/Vol] 20.29 10*3/uL High 3.73-10.10 [facility] Comment on above: Performed By: #### L AB980 ####[facility] (DEFAULT)[address] [place] [address] Abs Baso Auto < Normal 0.00-0.09 [facility] Comment on above: Performed By: #### L AB980 ####[facility] (DEFAULT)[address] [place] [address] Abs Eos Auto < Normal 0.00-0.48 [facility] Comment on above: Performed By: #### L AB980 ####[facility] (DEFAULT)[address] [place] [address] Basophils/100 WBC (Bld) 0.1 % Normal [facility] Comment on above: Performed By: #### L AB980 ####[facility] (DEFAULT)[address] [place] [address] DIFF STATUS Electronic Differential Normal [facility] Comment on above: Performed By: #### L [id number] ####[facility] (DEFAULT)[address] [place] [address] Eosinophils/100 WBC (Bld) 0.0 % Normal [facility] Comment on above: Performed By: #### L AB980 ####[facility] (DEFAULT)[address] [place] [address] Hematocrit (Bld) [Volume fraction] 23.7 % Low 39.6-48.8 [facility] Comment on above: Performed By: #### L [id number] ####[facility] (DEFAULT)[address] [place] [address] Hemoglobin (Bld) [Mass/Vol] 8.0 g/dL Low 13.4-16.8 [facility] Comment on above: Performed By: #### L AB980 ####[facility] (DEFAULT)[address] [place] [address] Immature Grans % 0.5 % Normal [facility] Comment on above: Performed By: #### L AB980 ####[facility] (DEFAULT)[address] [place] [address] Immature Grans Absolute 0.11 K/uL High <=0.07 [facility] Comment on above: Performed By: #### L AB980 ####[facility] (DEFAULT)[address] [place] [address] Lymphocytes (Bld) [#/Vol] 0.20 10*3/uL Low 0.83-3.57 [facility] Comment on above: Performed By: #### L AB980 ####[facility] (DEFAULT)[address] [place] [address] Lymphocytes/100 WBC (Bld) 1.0 % Normal [facility] Comment on above: Performed By: #### L AB980 ####[facility] (DEFAULT)[address] [place] [address] MCV (RBC) [Entitic vol] 94.8 fL High 79.0-94.5 [facility] Comment on above: Performed By: #### L AB980 ####[facility] (DEFAULT)[address] [place] [address] Mean Cell Hgb 32.0 pg Normal 26.1-33.3 [facility] Comment on above: Performed By: #### L AB980 ####[facility] (DEFAULT)[address] [place] [address] Mean Cell Hgb Conc 33.8 g/dL Normal 31.9-36.5 [facility] Comment on above: Performed By: #### L AB980 ####[facility] (DEFAULT)[address] [place] [address] Monocytes (Bld) [#/Vol] 0.26 10*3/uL Normal 0.24-0.93 [facility] Comment on above: Performed By: #### L AB980 ####[facility] (DEFAULT)[address] [place] [address] Monocytes/100 WBC (Bld) 1.3 % Normal [facility] Comment on above: Performed By: #### L AB980 ####[facility] (DEFAULT)[address] [place] [address] Nucleated RBC 0.0 /100 WBC Normal <=0.2 [facility] Comment on above: Performed By: #### L [id number] ####[facility] (DEFAULT)[address] [place] [address] Platelet mean volume (Bld) [Entitic vol] 11.4 fL Normal 8.7-12.3 [facility] Comment on above: Performed By: #### L [id number] ####[facility] (DEFAULT)[address] [place] [address] Platelets (Bld) [#/Vol] 146 10*3/uL Normal 146-337 [facility] Comment on above: Performed By: #### L AB980 ####[facility] (DEFAULT)[address] [place] [address] RBC (Bld) [#/Vol] 2.50 10*6/uL Low 4.38-5.83 [facility] Comment on above: Performed By: #### L AB980 ####[facility] (DEFAULT)[address] [place] [address] RBC Distribution 17.6 % High 10.9-14.3 [facility] Comment on above: Performed By: #### L AB980 ####[facility] (DEFAULT)[address] [place] [address] Segs + Bands Auto 97.1 % Normal [facility] Comment on above: Performed By: #### L AB980 ####[facility] (DEFAULT)[address] [place] [address] Segs + Bands,Absolute Auto 19.47 K/uL High 1.57-6.19 [facility] Comment on above: Performed By: #### L AB980 ####[facility] (DEFAULT)[address] [place] [address] WBC (Bld) [#/Vol] 20.07 10*3/uL High 3.73-10.10 [facility] Comment on above: Performed By: #### L AB980 ####[facility] (DEFAULT)[address] [place] [address] Abs Eos Auto < Normal 0.00-0.48 [facility] Comment on above: Performed By: #### L AB980 ####[facility] (DEFAULT)[address] [place] [address] Basophils (Bld) [#/Vol] 0.05 10*3/uL Normal 0.00-0.09 [facility] Comment on above: Performed By: #### L AB980 ####[facility] (DEFAULT)[address] [place] [address] Basophils/100 WBC (Bld) 0.3 % Normal [facility] Comment on above: Performed By: #### L AB980 ####[facility] (DEFAULT)[address] [place] [address] DIFF STATUS Electronic Differential Normal [facility] Comment on above: Performed By: #### L AB980 ####[facility] (DEFAULT)[address] [place] [address] Eosinophils/100 WBC (Bld) 0.0 % Normal [facility] Comment on above: Performed By: #### L AB980 ####[facility] (DEFAULT)[address] [place] [address] Hematocrit (Bld) [Volume fraction] 24.0 % Low 39.6-48.8 [facility] Comment on above: Performed By: #### L AB980 ####[facility] (DEFAULT)[address] [place] [address], [place] [address] Hemoglobin (Bld) [Mass/Vol] 7.8 g/dL Low 13.4-16.8 [facility] Comment on above: Result Comment: Resu lts inconsistent with previous results. Performed By: #### L AB980 ####[facility] (DEFAULT)[address] [place] [address] Immature Grans % 0.7 % Normal [facility] Comment on above: Performed By: #### L AB980 ####[facility] (DEFAULT)[address] [place] [address], [place] [address] Immature Grans Absolute 0.14 K/uL High <=0.07 [facility] Comment on above: Performed By: #### L AB980 ####[facility] (DEFAULT)[address] [place] [address], [place] [address] Lymphocytes (Bld) [#/Vol] 0.17 10*3/uL Low 0.83-3.57 [facility] Comment on above: Performed By: #### L AB980 ####[facility] (DEFAULT)[address] [place] [address], [place] [address] Lymphocytes/100 WBC (Bld) 0.9 % Normal [facility] Comment on above: Performed By: #### L AB980 ####[facility] (DEFAULT)[address] [place] [address] MCV (RBC) [Entitic vol] 95.6 fL High 79.0-94.5 [facility] Comment on above: Performed By: #### L AB980 ####[facility] (DEFAULT)[address] [place] [address] Mean Cell Hgb 31.1 pg Normal 26.1-33.3 [facility] Comment on above: Performed By: #### L AB980 ####[facility] (DEFAULT)[address] [place] [address] Mean Cell Hgb Conc 32.5 g/dL Normal 31.9-36.5 [facility] Comment on above: Performed By: #### L AB980 ####[facility] (DEFAULT)[address] [place] [address] Monocytes (Bld) [#/Vol] 0.25 10*3/uL Normal 0.24-0.93 [facility] Comment on above: Performed By: #### L AB980 ####[facility] (DEFAULT)[address] [place] [address] Monocytes/100 WBC (Bld) 1.3 % Normal [facility] Comment on above: Performed By: #### L AB980 ####[facility] (DEFAULT)[address] [place] [address] Nucleated RBC 0.1 /100 WBC Normal <=0.2 [facility] Comment on above: Performed By: #### L AB980 ####[facility] (DEFAULT)[address] [place] [address] Platelet mean volume (Bld) [Entitic vol] 11.5 fL Normal 8.7-12.3 [facility] Comment on above: Performed By: #### L AB980 ####[facility] (DEFAULT)[address] [place] [address] Platelets (Bld) [#/Vol] 155 10*3/uL Normal 146-337 [facility] Comment on above: Performed By: #### L AB980 ####[facility] (DEFAULT)[address] [place] [address] RBC (Bld) [#/Vol] 2.51 10*6/uL Low 4.38-5.83 [facility] Comment on above: Performed By: #### L AB980 ####[facility] (DEFAULT)[address] [place] [address] RBC Distribution 17.4 % High 10.9-14.3 [facility] Comment on above: Performed By: #### L AB980 ####[facility] (DEFAULT)[address] [place] [address] Segs + Bands Auto 96.8 % Normal [facility] Comment on above: Performed By: #### L AB980 ####[facility] (DEFAULT)[address] [place] [address] Segs + Bands,Absolute Auto 18.98 K/uL High 1.57-6.19 [facility] Comment on above: Performed By: #### L AB980 ####[facility] (DEFAULT)[address] [place] [address] WBC (Bld) [#/Vol] 19.59 10*3/uL High 3.73-10.10 [facility] Comment on above: Performed By: #### L AB980 ####[facility] (DEFAULT)[address] [place] [address] CHEM 7 (LYTES,BUN,CREA,GLUC) on 05-27-2024 Anion gap [Moles/Vol] 11 mmol/L Normal 7-17 [facility] Comment on above: Performed By: #### I PB, HFP, CHM7, MGO, CA ####[facility] (DEFAULT)[address] [place] [address] Chloride [Moles/Vol] 103 mmol/L Normal 98-108 [facility] Comment on above: Performed By: #### I PB, HFP, CHM7, MGO, CA ####[facility] (DEFAULT)[address] [place] [address] CO2 [Moles/Vol] 30 mmol/L Normal 21-31 [facility] Comment on above: Performed By: #### I PB, HFP, CHM7, MGO, CA ####[facility] (DEFAULT)[address] [place] [address] Creatinine [Mass/Vol] 0.50 mg/dL Low 0.70-1.30 [facility] Comment on above: Performed By: #### I PB, HFP, CHM7, MGO, CA ####[facility] (DEFAULT)[address] [place] [address] eGFR, CKD-EPI, Male > Normal >=60 [facility] Comment on above: Result Comment: Repo rted eGFR is based on the CKD-EPI 2020 equation using creatinine, age, and sex. Performed By: #### I PB, HFP, CHM7, MGO, CA ####[facility] (DEFAULT)[address] [place] [address] Glucose [Mass/Vol] 118 mg/dL Normal Nonfastin -179 mg/dL; Fastin-99 [facility] Comment on above: Performed By: #### I PB, HFP, CHM7, MGO, CA ####[facility] (DEFAULT)[address] [place] [address] Osmolality [Osmolality] 298 mosm/kg Normal 278-305 [facility] Comment on above: Performed By: #### I PB, HFP, CHM7, MGO, CA ####[facility] (DEFAULT)[address] [place] [address] Potassium [Moles/Vol] 4.2 mmol/L Normal 3.5-5.0 [facility] Comment on above: Performed By: #### I PB, HFP, CHM7, MGO, CA ####[facility] (DEFAULT)[address] [place] [address] Sodium [Moles/Vol] 140 mmol/L Normal 135-145 [facility] Comment on above: Performed By: #### I PB, HFP, CHM7, MGO, CA ####[facility] (DEFAULT)[address] [place] [address] Urea nitrogen [Mass/Vol] 22 mg/dL Normal 7-25 [facility] Comment on above: Performed By: #### I PB, HFP, CHM7, MGO, CA ####[facility] (DEFAULT)[address] [place] [address] Urea nitrogen/Creatinine [Mass ratio] 44 mg/mg Normal [facility] Comment on above: Performed By: #### I PB, HFP, CHM7, MGO, CA ####[facility] (DEFAULT)[address] [place] [address] Anion gap [Moles/Vol] 9 mmol/L Normal 7-17 [facility] Comment on above: Performed By: #### H FP, IPB, CHM7, MGO, CA ####[facility] (DEFAULT)[address] [place] [address] Chloride [Moles/Vol] 104 mmol/L Normal 98-108 [facility] Comment on above: Performed By: #### H FP, IPB, CHM7, MGO, CA ####[facility] (DEFAULT)[address] [place] [address] CO2 [Moles/Vol] 33 mmol/L High 21-31 [facility] Comment on above: Performed By: #### H FP, IPB, CHM7, MGO, CA ####[facility] (DEFAULT)[address] [place] [address] Creatinine [Mass/Vol] 0.48 mg/dL Low 0.70-1.30 [facility] Comment on above: Performed By: #### H FP, IPB, CHM7, MGO, CA ####[facility] (DEFAULT)[address] [place] [address] eGFR, CKD-EPI, Male > Normal >=60 [facility] Comment on above: Result Comment: Repo rted eGFR is based on the CKD-EPI 2020 equation using creatinine, age, and sex. Performed By: #### H JAKE IPB, CHM7, MGO, CA ####[facility] (DEFAULT)[address] [place] [address] Glucose [Mass/Vol] 119 mg/dL Normal Nonfastin -179 mg/dL; Fastin-99 [facility] Comment on above: Performed By: #### H FP, IPB, CHM7, MGO, CA ####[facility] (DEFAULT)[address] [place] [address] Osmolality [Osmolality] 301 mosm/kg Normal 278-305 [facility] Comment on above: Performed By: #### H FP, IPB, CHM7, MGO, CA ####[facility] (DEFAULT)[address] [place] [address] Potassium [Moles/Vol] 4.2 mmol/L Normal 3.5-5.0 [facility] Comment on above: Performed By: #### H JAKE, IPB, CHM7, MGO, CA ####[facility] (DEFAULT)[address] [place] [address] Sodium [Moles/Vol] 142 mmol/L Normal 135-145 [facility] Comment on above: Performed By: #### H FP, IPB, CHM7, MGO, CA ####[facility] (DEFAULT)[address] [place] [address] Urea nitrogen [Mass/Vol] 21 mg/dL Normal 7-25 [facility] Comment on above: Performed By: #### H FP, IPB, CHM7, MGO, CA ####[facility] (DEFAULT)[address] [place] [address] Urea nitrogen/Creatinine [Mass ratio] 44 mg/mg Normal [facility] Comment on above: Performed By: #### H FP, IPB, CHM7, MGO, CA ####[facility] (DEFAULT)[address] [place] [address] Anion gap [Moles/Vol] 10 mmol/L Normal 7-17 [facility] Comment on above: Performed By: #### I PB, HFP, CHM7, MGO, CA ####[facility] (DEFAULT)[address] [facility] [place] [address] Chloride [Moles/Vol] 104 mmol/L Normal 98-108 [facility] Comment on above: Performed By: #### I PB, HFP, CHM7, MGO, CA ####[facility] (DEFAULT)[address] [place] [address] CO2 [Moles/Vol] 31 mmol/L Normal 21-31 [facility] Comment on above: Performed By: #### I PB, HFP, CHM7, MGO, CA ####[facility] (DEFAULT)[address] [place] [address] Creatinine [Mass/Vol] 0.45 mg/dL Low 0.70-1.30 [facility] Comment on above: Performed By: #### I PB, HFP, CHM7, MGO, CA ####[facility] (DEFAULT)[address] [place] [address] eGFR, CKD-EPI, Male > Normal >=60 [facility] Comment on above: Result Comment: Repo rted eGFR is based on the CKD-EPI 2020 equation using creatinine, age, and sex. Performed By: #### I PB, HFP, CHM7, MGO, CA ####[facility] (DEFAULT)[address] [place] [place] [address] Glucose [Mass/Vol] 132 mg/dL Normal Nonfastin -179 mg/dL; Fastin-99 [facility] Comment on above: Performed By: #### I PB, HFP, CHM7, MGO, CA ####[facility] (DEFAULT)[address] [place] [address] Osmolality [Osmolality] 299 mosm/kg Normal 278-305 [facility] Comment on above: Performed By: #### I PB, HFP, CHM7, MGO, CA ####[facility] (DEFAULT)[address] [place] [address] Potassium [Moles/Vol] 4.3 mmol/L Normal 3.5-5.0 [facility] Comment on above: Performed By: #### I PB, HFP, CHM7, MGO, CA ####[facility] (DEFAULT)[address] [place] [address] Sodium [Moles/Vol] 141 mmol/L Normal 135-145 [facility] Comment on above: Performed By: #### I PB, HFP, CHM7, MGO, CA ####[facility] (DEFAULT)[address] [place] [address] Urea nitrogen [Mass/Vol] 19 mg/dL Normal 7-25 [facility] Comment on above: Performed By: #### I PB, HFP, CHM7, MGO, CA ####[facility] (DEFAULT)[address] [place] [address] Urea nitrogen/Creatinine [Mass ratio] 42 mg/mg Normal [facility] Comment on above: Performed By: #### I PB, HFP, CHM7, MGO, CA ####[facility] (DEFAULT)[address] [place] [address] FIBRINOGEN, CLOTTABLEon 03-2 Fibrinogen-Clottable 330 mg/dL Normal 220-410 [facility] Comment on above: Result Comment: Func tional Fibrinogen (activity) levels can be affected by direct thrombin inhibitors such as heparins (>2.0 IU/ml) and dabigatran. Abnormal results should be interpreted with caution. Performed By: #### P TPTT, FIB ####[facility] (DEFAULT)[address] [place] [address] Fibrinogen-Clottable 335 mg/dL Normal 220-410 [facility] Comment on above: Result Comment: Func tional Fibrinogen (activity) levels can be affected by direct thrombin inhibitors such as heparins (>2.0 IU/ml) and dabigatran. Abnormal results should be interpreted with caution. Performed By: #### P TPTT, FIB ####[facility] (DEFAULT)[address] [place] [address] Fibrinogen-Clottable 348 mg/dL Normal 220-410 [facility] Comment on above: Result Comment: Func tional Fibrinogen (activity) levels can be affected by direct thrombin inhibitors such as heparins (>2.0 IU/ml) and dabigatran. Abnormal results should be interpreted with caution. Performed By: #### P TPTT, FIB ####[facility] (DEFAULT)[address] [place] [address] HEMOGLOBIN & HEMATOCRITon Hematocrit (Bld) [Volume fraction] 24.8 % Low 39.6-48.8 [facility] Comment on above: Performed By: #### H H ####[facility] (DEFAULT)[address] [place] [address] Hemoglobin (Bld) [Mass/Vol] 8.2 g/dL Low 13.4-16.8 [facility] Comment on above: Performed By: #### H H ####[facility] (DEFAULT)[address] [place] [address], [place] [address] Hematocrit (Bld) [Volume fraction] 24.1 % Low 39.6-48.8 [facility] Comment on above: Performed By: #### H H ####[facility] (DEFAULT)[address] [place] [address], [place] [address] Hemoglobin (Bld) [Mass/Vol] 7.8 g/dL Low 13.4-16.8 [facility] Comment on above: Performed By: #### H H ####[facility] (DEFAULT)[address] [place] [address] HEPATIC FUNCTION PANELon Albumin [Mass/Vol] 3.4 g/dL Low 3.5-5.0 [facility] Comment on above: Performed By: #### I PB, HFP, CHM7, MGO, CA ####[facility] (DEFAULT)[address] [place] [address] ALP [Catalytic activity/Vol] 249 U/L High 32-126 [facility] Comment on above: Performed By: #### I PB, HFP, CHM7, MGO, CA ####[facility] (DEFAULT)[address] [place] [address] ALT [Catalytic activity/Vol] 96 U/L High 10-52 [facility] Comment on above: Performed By: #### I PB, HFP, CHM7, MGO, CA ####[facility] (DEFAULT)[address] [place] [address] AST [Catalytic activity/Vol] 166 U/L High 10-39 [facility] Comment on above: Performed By: #### I PB, HFP, CHM7, MGO, CA ####[facility] (DEFAULT)[address] [place] [address] Bilirubin [Mass/Vol] 2.6 mg/dL High <1.5 [facility] Comment on above: Performed By: #### I PB, HFP, CHM7, MGO, CA ####[facility] (DEFAULT)[address] [place] [address] Bilirubin.indirect [Mass/Vol] 1.2 mg/dL High <0.3 [facility] Comment on above: Performed By: #### I PB, HFP, CHM7, MGO, CA ####[facility] (DEFAULT)[address] [place] [address] Protein [Mass/Vol] 5.8 g/dL Low 6.4-8.3 [facility] Comment on above: Performed By: #### I PB, HFP, CHM7, MGO, CA ####[facility] (DEFAULT)[address] [place] [address] Albumin [Mass/Vol] 3.2 g/dL Low 3.5-5.0 [facility] Comment on above: Performed By: #### H FP, IPB, CHM7, MGO, CA ####[facility] (DEFAULT)[address] [place] [address] ALP [Catalytic activity/Vol] 231 U/L High 32-126 [facility] Comment on above: Performed By: #### H FP, IPB, CHM7, MGO, CA ####[facility] (DEFAULT)[address] [place] [address] ALT [Catalytic activity/Vol] 102 U/L High 10-52 [facility] Comment on above: Performed By: #### H FP, IPB, CHM7, MGO, CA ####[facility] (DEFAULT)[address] [place] [address] AST [Catalytic activity/Vol] 185 U/L High 10-39 [facility] Comment on above: Performed By: #### H FP, IPB, CHM7, MGO, CA ####[facility] (DEFAULT)[address] [place] [address] Bilirubin [Mass/Vol] 2.6 mg/dL High <1.5 [facility] Comment on above: Performed By: #### H FP, IPB, CHM7, MGO, CA ####[facility] (DEFAULT)[address] [place] [address] Bilirubin.indirect [Mass/Vol] 1.2 mg/dL High <0.3 [facility] Comment on above: Performed By: #### H FP, IPB, CHM7, MGO, CA ####[facility] (DEFAULT)[address] [place] [address] Protein [Mass/Vol] 5.6 g/dL Low 6.4-8.3 [facility] Comment on above: Performed By: #### H FP, IPB, CHM7, MGO, CA ####[facility] (DEFAULT)[address] [place] [address] Albumin [Mass/Vol] 3.4 g/dL Low 3.5-5.0 [facility] Comment on above: Performed By: #### I PB, HFP, CHM7, MGO, CA ####[facility] (DEFAULT)[address] [place] [address] ALP [Catalytic activity/Vol] 237 U/L High 32-126 [facility] Comment on above: Performed By: #### I PB, HFP, CHM7, MGO, CA ####[facility] (DEFAULT)[address] [place] [address] ALT [Catalytic activity/Vol] 110 U/L High 10-52 [facility] Comment on above: Performed By: #### I PB, HFP, CHM7, MGO, CA ####[facility] (DEFAULT)[address] [place] [address] AST [Catalytic activity/Vol] 229 U/L High 10-39 [facility] Comment on above: Performed By: #### I PB, HFP, CHM7, MGO, CA ####[facility] (DEFAULT)[address] [place] [address] Bilirubin [Mass/Vol] 3.0 mg/dL High <1.5 [facility] Comment on above: Performed By: #### I PB, HFP, CHM7, MGO, CA ####[facility] (DEFAULT)[address] [place] [address] Bilirubin.indirect [Mass/Vol] 1.4 mg/dL High <0.3 [facility] Comment on above: Performed By: #### I PB, HFP, CHM7, MGO, CA ####[facility] (DEFAULT)[address] [place] [address] Protein [Mass/Vol] 5.8 g/dL Low 6.4-8.3 [facility] Comment on above: Performed By: #### I PB, HFP, CHM7, MGO, CA ####[facility] (DEFAULT)[address] [place] [address] IONIZED CALCIUM, WHOLE BLOOD on 05-27-2024 ICA 4.55 mg/dL Low 4.60-5.30 [facility] Comment on above: Performed By: #### I CA ####[facility] (DEFAULT)[address] [place] [address] ICA 4.49 mg/dL Low 4.60-5.30 [facility] Comment on above: Performed By: #### I CA ####[facility] (DEFAULT)[address] [place] [address], [place] [address] ICA 4.24 mg/dL Low 4.60-5.30 [facility] Comment on above: Performed By: #### I CA ####[facility] (DEFAULT)[address] [place] [address], [place] [address] LACTATE, BLOODon 05-27-2024 Lactate, Blood 1.5 mmol/L Normal 0.5-1.6 [facility] Comment on above: Performed By: #### L ACT ####[facility] (DEFAULT)[address] [place] [address], [place] [address] MAGNESIUMon 05-27-2024 Magnesium [Mass/Vol] 2.0 mg/dL Normal 1.6-2.6 [facility] Comment on above: Performed By: #### I PB, HFP, CHM7, MGO, CA ####[facility] (DEFAULT)[address] [place] [address] Magnesium [Mass/Vol] 2.1 mg/dL Normal 1.6-2.6 [facility] Comment on above: Performed By: #### H FP, IPB, CHM7, MGO, CA ####[facility] (DEFAULT)[address] [place] [address] Magnesium [Mass/Vol] 2.2 mg/dL Normal 1.6-2.6 [facility] Comment on above: Performed By: #### I PB, HFP, CHM7, MGO, CA ####[facility] (DEFAULT)[address] [place] [address] PHOSPHATE, INORGANICon 05-27 Phosphorous 2.5 mg/dL Normal 2.2-4.6 [facility] Comment on above: Performed By: #### I PB, HFP, CHM7, MGO, CA ####[facility] (DEFAULT)[address] [place] [address] Phosphorous 2.6 mg/dL Normal 2.2-4.6 [facility] Comment on above: Performed By: #### H FP, IPB, CHM7, MGO, CA ####[facility] (DEFAULT)[address] [place] [address] Phosphorous 3.1 mg/dL Normal 2.2-4.6 [facility] Comment on above: Performed By: #### I PB, HFP, CHM7, MGO, CA ####[facility] (DEFAULT)[address] [place] [address] PT,INR,PTTon 05-27-2024 aPTT Coag (Bld) [Time] 27.3 s Normal 24.0-34.3 [facility] Comment on above: Performed By: #### P TPTT, FIB ####[facility] (DEFAULT)[address] [place] [address] INR Coag (PPP) [Relative time] 1.6 {INR} High 0.9-1.1 [facility] Comment on above: Performed By: #### P TPTT, FIB ####[facility] (DEFAULT)[address] [place] [address] PT Coag (PPP) [Time] 19.1 s High 11.9-14.2 [facility] Comment on above: Performed By: #### P TPTT, FIB ####[facility] (DEFAULT)[address] [place] [address] aPTT Coag (Bld) [Time] 28.5 s Normal 24.0-34.3 [facility] Comment on above: Performed By: #### P TPTT, FIB ####[facility] (DEFAULT)[address] [place] [address] INR Coag (PPP) [Relative time] 1.7 {INR} High 0.9-1.1 [facility] Comment on above: Performed By: #### P TPTT, FIB ####[facility] (DEFAULT)[address] [place] [address] PT Coag (PPP) [Time] 20.2 s High 11.9-14.2 [facility] Comment on above: Performed By: #### P TPTT, FIB ####[facility] (DEFAULT)[address] [place] [address] aPTT Coag (Bld) [Time] 31.0 s Normal 24.0-34.3 [facility] Comment on above: Performed By: #### P TPTT, FIB ####[facility] (DEFAULT)[address] [place] [address] INR Coag (PPP) [Relative time] 1.7 {INR} High 0.9-1.1 [facility] Comment on above: Performed By: #### P TPTT, FIB ####[facility] (DEFAULT)[address] [place] [address] PT Coag (PPP) [Time] 20.3 s High 11.9-14.2 [facility] Comment on above: Performed By: #### P TPTT, FIB ####[facility] (DEFAULT)[address] [place] [address] TACROLIMUS LEVEL, TROUGH (NE E DRUG LEVEL)on 05-27-2024 Tacrolimus, Trough 7.7 ng/mL Normal Bone Veronique ow Transplant: 5.0-15.0 Kidney/Pancre atic Transplant: 0 to 3 months: 8.0-10.0, 3 to 12 months: 6.0-8.0, >12 months: 4.0-6.0 [facility] Comment on above: Order Comment: Pleas e draw at specified interval PRIOR to dose. Do not hold dose to wait for level. Specimens batched twice per day, (M-) and once per day weekendsMethod performed is a chemiluminescent microparticle immunoasssay on the [employer] i2000.The range is based on experience at [facility] and users should be aware that target concentrations vary widely depending on concomitant therapy, time post-transplant, and desired degree of immunosuppression. Performed By: #### T ACRO ####[facility] (DEFAULT)[address] [place] [address] XR CHEST 1 VIEW PORTABLEon 0 05-27-2024 XR CHEST [address] [facility] ARTERIAL BLOOD GAS PLUS LACT ATEon 05-26-2024 Base Excess 2.1 mmol/L Normal -3.0-3.0 [facility] Comment on above: Performed By: #### G AS5L ####[facility] (DEFAULT)[address] [place] [address] HCO3 (Bld) [Moles/Vol] 27 mmol/L Normal [facility] Comment on above: Performed By: #### G AS5L ####[facility] (DEFAULT)[address] [place] [address] Lactate, Whole Blood 3.6 mmol/L High 0.5-1.6 [facility] Comment on above: Result Comment: Lact ate results >/= 2.0 mmol/L should be followed up with a measurement 2 hours later for patients with suspicion of sepsis. Performed By: #### G AS5L ####[facility] (DEFAULT)[address] [place] [address] Oxygen saturation in Blood 98 % Normal 94-98 [facility] Comment on above: Performed By: #### G AS5L ####[facility] (DEFAULT)[address] [place] [address] pCO2 41 mm Hg Normal 32-48 [facility] Comment on above: Performed By: #### G AS5L ####[facility] (DEFAULT)[address] [place] [address] pH, Arterial 7.42 Normal 7.35-7.45 [facility] Comment on above: Performed By: #### G AS5L ####[facility] (DEFAULT)[address] [place] [address] pO2 103 mm Hg Normal 83-108 [facility] Comment on above: Performed By: #### G AS5L ####[facility] (DEFAULT)[address] [place] [address] Specimen type Nom (Spec) Arterial Normal [facility] Comment on above: Performed By: #### G AS5L ####[facility] (DEFAULT)[address] [place] [address] Base Excess -0.2 mmol/L Normal -3.0-3.0 [facility] Comment on above: Performed By: #### G AS5L ####[facility] (DEFAULT)[address] [place] [address] HCO3 (Bld) [Moles/Vol] 25 mmol/L Normal 22-28 [facility] Comment on above: Performed By: #### G AS5L ####[facility] (DEFAULT)[address] [place] [address], [place] [address] Lactate, Whole Blood 6.9 mmol/L Critically high 0.5-1.6 [facility] Comment on above: Result Comment: Lact ate results >/= 2.0 mmol/L should be followed up with a measurement 2 hours later for patients with suspicion of sepsis. Performed By: #### G AS5L ####[facility] (DEFAULT)[address] [place] [address], [place] [address] Oxygen saturation in Blood 98 % Normal 94-98 [facility] Comment on above: Performed By: #### G AS5L ####[facility] (DEFAULT)[address] [place] [address] pCO2 41 mm Hg Normal 32-48 [facility] Comment on above: Performed By: #### G AS5L ####[facility] (DEFAULT)[address] [place] [address] pH, Arterial 7.39 Normal 7.35-7.45 [facility] Comment on above: Performed By: #### G AS5L ####[facility] (DEFAULT)[address] [place] [address] pO2 102 mm Hg Normal 83-108 [facility] Comment on above: Performed By: #### G AS5L ####[facility] (DEFAULT)[address] [place] [address] Specimen type Nom (Spec) Arterial Normal [facility] Comment on above: Performed By: #### G AS5L ####[facility] (DEFAULT)[address] [place] [address] CALCIUMon 05-26-2024 Calcium [Mass/Vol] 8.8 mg/dL Normal 8.6-10.5 [facility] Comment on above: Performed By: #### I PB, HFP, CHM7, MGO, CA ####[facility] (DEFAULT)[address] [place] [address] Calcium [Mass/Vol] 8.9 mg/dL Normal 8.6-10.5 [facility] Comment on above: Performed By: #### I PB, HFP, CHM7, MGO, CA ####[facility] (DEFAULT)[address] [place] [address] Calcium [Mass/Vol] 8.9 mg/dL Normal 8.6-10.5 [facility] Comment on above: Performed By: #### H FP, IPB, CHM7, MGO, CA ####[facility] (DEFAULT)[address] [place] [address] Calcium [Mass/Vol] 9.1 mg/dL Normal 8.6-10.5 [facility] Comment on above: Performed By: #### H FP, IPB, MGO, CHM7, CA ####[facility] (DEFAULT)[address] [place] [address] CBC AND ELECTRONIC DIFFon Abs Baso Auto < Normal 0.00-0.09 [facility] Comment on above: Performed By: #### L [id number] ####[facility] (DEFAULT)[address] [place] [address] Abs Eos Auto < Normal 0.00-0.48 [facility] Comment on above: Performed By: #### L [id number] ####[facility] (DEFAULT)[address] [place] [address] Basophils/100 WBC (Bld) 0.2 % Normal [facility] Comment on above: Performed By: #### L [id number] ####[facility] (DEFAULT)[address] [place] [address] DIFF STATUS Electronic Differential Normal [facility] Comment on above: Performed By: #### L [id number] ####[facility] (DEFAULT)[address] [place] [address] Eosinophils/100 WBC (Bld) 0.0 % Normal [facility] Comment on above: Performed By: #### L [id number] ####[facility] (DEFAULT)[address] [place] [address] Hematocrit (Bld) [Volume fraction] 37.1 % Low 39.6-48.8 [facility] Comment on above: Result Comment: This is an appended report. These results have been appended to a previously preliminary verified report. Performed By: #### L [id number] ####[facility] (DEFAULT)[address] [place] [address], [place] [address] Hemoglobin (Bld) [Mass/Vol] 12.4 g/dL Low 13.4-16.8 [facility] Comment on above: Result Comment: This is an appended report. These results have been appended to a previously preliminary verified report. Performed By: #### L [id number] ####[facility] (DEFAULT)[address] [place] [address], [place] [address] Immature Grans % 0.4 % Normal [facility] Comment on above: Performed By: #### L [id number] ####[facility] (DEFAULT)[address] [place] [address] Immature Grans Absolute 0.05 K/uL Normal <=0.07 [facility] Comment on above: Performed By: #### L [id number] ####[facility] (DEFAULT)[address] [place] [address], [place] [address] Lymphocytes (Bld) [#/Vol] 0.10 10*3/uL Low 0.83-3.57 [facility] Comment on above: Performed By: #### L [id number] ####[facility] (DEFAULT)[address] [place] [address] Lymphocytes/100 WBC (Bld) 0.8 % Normal [facility] Comment on above: Performed By: #### L [id number] ####[facility] (DEFAULT)[address] [place] [address] MCV (RBC) [Entitic vol] 94.4 fL Normal 79.0-94.5 [facility] Comment on above: Result Comment: This is an appended report. These results have been appended to a previously preliminary verified report. Performed By: #### L [id number] ####[facility] (DEFAULT)[address] [place] [address] Mean Cell Hgb 31.6 pg Normal 26.1-33.3 [facility] Comment on above: Result Comment: This is an appended report. These results have been appended to a previously preliminary verified report. Performed By: #### L [id number] ####[facility] (DEFAULT)[address] [place] [address] Mean Cell Hgb Conc 33.4 g/dL Normal 31.9-36.5 [facility] Comment on above: Result Comment: This is an appended report. These results have been appended to a previously preliminary verified report. Performed By: #### L [id number] ####[facility] (DEFAULT)[address] [place] [address], [place] [address] Mean Platelet Volume Normal [facility] Comment on above: Result Comment: Not measured Performed By: #### L [id number] ####[facility] (DEFAULT)[address] [place] [address], [place] [address] Monocytes (Bld) [#/Vol] 0.15 10*3/uL Low 0.24-0.93 [facility] Comment on above: Performed By: #### L [id number] ####[facility] (DEFAULT)[address] [place] [address] Monocytes/100 WBC (Bld) 1.2 % Normal [facility] Comment on above: Performed By: #### L [id number] ####[facility] (DEFAULT)[address] [place] [address] Nucleated RBC 0.0 /100 WBC Normal <=0.2 [facility] Comment on above: Performed By: #### L [id number] ####[facility] (DEFAULT)[address] [place] [address] Platelets (Bld) [#/Vol] 112 10*3/uL Low 146-337 [facility] Comment on above: Result Comment: This is an appended report. These results have been appended to a previously preliminary verified report. Performed By: #### L [id number] ####[facility] (DEFAULT)[address] [place] [address] RBC (Bld) [#/Vol] 3.93 10*6/uL Low 4.38-5.83 [facility] Comment on above: Result Comment: This is an appended report. These results have been appended to a previously preliminary verified report. Performed By: #### L [id number] ####[facility] (DEFAULT)[address] [place] [address] RBC Distribution 17.7 % High 10.9-14.3 [facility] Comment on above: Result Comment: This is an appended report. These results have been appended to a previously preliminary verified report. Performed By: #### L [id number] ####[facility] (DEFAULT)[address] [place] [address] Segs + Bands Auto 97.4 % Normal [facility] Comment on above: Performed By: #### L [id number] ####[facility] (DEFAULT)[address] [place] [address] Segs + Bands,Absolute Auto 11.99 K/uL High 1.57-6.19 [facility] Comment on above: Performed By: #### L [id number] ####[facility] (DEFAULT)[address] [place] [address] WBC (Bld) [#/Vol] 12.31 10*3/uL High 3.73-10.10 [facility] Comment on above: Result Comment: This is an appended report. These results have been appended to a previously preliminary verified report. Performed By: #### L [id number] ####[facility] (DEFAULT)[address] [place] [address] Abs Baso Auto < Normal 0.00-0.09 [facility] Comment on above: Performed By: #### L [id number] ####[facility] (DEFAULT)[address] [place] [place] [address] Abs Eos Auto < Normal 0.00-0.48 [facility] Comment on above: Performed By: #### L [id number] ####[facility] (DEFAULT)[address] [place] [address] Basophils/100 WBC (Bld) 0.1 % Normal [facility] Comment on above: Performed By: #### L AB980 ####[facility] (DEFAULT)[address] [place] [address], [place] [address] DIFF STATUS Electronic Differential Normal [facility] Comment on above: Performed By: #### L AB980 ####[facility] (DEFAULT)[address] [place] [address], [place] [address] Eosinophils/100 WBC (Bld) 0.0 % Normal [facility] Comment on above: Performed By: #### L AB980 ####[facility] (DEFAULT)[address] [place] [address], [place] [address] Hematocrit (Bld) [Volume fraction] 27.6 % Low 39.6-48.8 [facility] Comment on above: Performed By: #### L [id number] ####[facility] (DEFAULT)[address] [place] [address], [place] [address] Hemoglobin (Bld) [Mass/Vol] 9.1 g/dL Low 13.4-16.8 [facility] Comment on above: Performed By: #### L AB980 ####[facility] (DEFAULT)[address] [place] [address] Immature Grans % 0.4 % Normal [facility] Comment on above: Performed By: #### L AB980 ####[facility] (DEFAULT)[address] [place] [address] Immature Grans Absolute 0.08 K/uL High <=0.07 [facility] Comment on above: Performed By: #### L AB980 ####[facility] (DEFAULT)[address] [place] [address] Lymphocytes (Bld) [#/Vol] 0.15 10*3/uL Low 0.83-3.57 [facility] Comment on above: Performed By: #### L AB980 ####[facility] (DEFAULT)[address] [place] [address] Lymphocytes/100 WBC (Bld) 0.8 % Normal [facility] Comment on above: Performed By: #### L AB980 ####[facility] (DEFAULT)[address] [place] [address] MCV (RBC) [Entitic vol] 95.8 fL High 79.0-94.5 [facility] Comment on above: Performed By: #### L AB980 ####[facility] (DEFAULT)[address] [place] [address] Mean Cell Hgb 31.6 pg Normal 26.1-33.3 [facility] Comment on above: Performed By: #### L AB980 ####[facility] (DEFAULT)[address] [place] [address] Mean Cell Hgb Conc 33.0 g/dL Normal 31.9-36.5 [facility] Comment on above: Performed By: #### L AB980 ####[facility] (DEFAULT)[address] [place] [address] Monocytes (Bld) [#/Vol] 0.23 10*3/uL Low 0.24-0.93 [facility] Comment on above: Performed By: #### L AB980 ####[facility] (DEFAULT)[address] [place] [address] Monocytes/100 WBC (Bld) 1.3 % Normal [facility] Comment on above: Performed By: #### L AB980 ####[facility] (DEFAULT)[address] [place] [address] Nucleated RBC 0.0 /100 WBC Normal <=0.2 [facility] Comment on above: Performed By: #### L [id number] ####[facility] (DEFAULT)[address] [place] [address] Platelet mean volume (Bld) [Entitic vol] 11.5 fL Normal 8.7-12.3 [facility] Comment on above: Performed By: #### L [id number] ####[facility] (DEFAULT)[address] [place] [address] Platelets (Bld) [#/Vol] 179 10*3/uL Normal 146-337 [facility] Comment on above: Performed By: #### L [id number] ####[facility] (DEFAULT)[address] [place] [address] RBC (Bld) [#/Vol] 2.88 10*6/uL Low 4.38-5.83 [facility] Comment on above: Performed By: #### L AB980 ####[facility] (DEFAULT)[address] [place] [address] RBC Distribution 17.8 % High 10.9-14.3 [facility] Comment on above: Performed By: #### L AB980 ####[facility] (DEFAULT)[address] [place] [address] Segs + Bands Auto 97.4 % Normal [facility] Comment on above: Performed By: #### L AB980 ####[facility] (DEFAULT)[address] [place] [address] Segs + Bands,Absolute Auto 17.39 K/uL High 1.57-6.19 [facility] Comment on above: Performed By: #### L AB980 ####[facility] (DEFAULT)[address] [place] [address] WBC (Bld) [#/Vol] 17.87 10*3/uL High 3.73-10.10 [facility] Comment on above: Performed By: #### L AB980 ####[facility] (DEFAULT)[address] [place] [address] Abs Baso Auto < Normal 0.00-0.09 [facility] Comment on above: Performed By: #### L AB980 ####[facility] (DEFAULT)[address] [place] [address] Abs Eos Auto < Normal 0.00-0.48 [facility] Comment on above: Performed By: #### L AB980 ####[facility] (DEFAULT)[address] [place] [address] Basophils/100 WBC (Bld) 0.1 % Normal [facility] Comment on above: Performed By: #### L AB980 ####[facility] (DEFAULT)[address] [place] [address] DIFF STATUS Electronic Differential Normal [facility] Comment on above: Performed By: #### L AB980 ####[facility] (DEFAULT)[address] [place] [address] Eosinophils/100 WBC (Bld) 0.0 % Normal [facility] Comment on above: Performed By: #### L [id number] ####[facility] (DEFAULT)[address] [place] [address] Hematocrit (Bld) [Volume fraction] 29.2 % Low 39.6-48.8 [facility] Comment on above: Performed By: #### L AB980 ####[facility] (DEFAULT)[address] [place] [address] Hemoglobin (Bld) [Mass/Vol] 9.7 g/dL Low 13.4-16.8 [facility] Comment on above: Performed By: #### L AB980 ####[facility] (DEFAULT)[address] [place] [address] Immature Grans % 0.3 % Normal [facility] Comment on above: Performed By: #### L AB980 ####[facility] (DEFAULT)[address] [place] [address] Immature Grans Absolute 0.04 K/uL Normal <=0.07 [facility] Comment on above: Performed By: #### L [id number] ####[facility] (DEFAULT)[address] [place] [address] Lymphocytes (Bld) [#/Vol] 0.22 10*3/uL Low 0.83-3.57 [facility] Comment on above: Performed By: #### L AB980 ####[facility] (DEFAULT)[address] [place] [address] Lymphocytes/100 WBC (Bld) 1.5 % Normal [facility] Comment on above: Performed By: #### L AB980 ####[facility] (DEFAULT)[address] [place] [address] MCV (RBC) [Entitic vol] 94.8 fL High 79.0-94.5 [facility] Comment on above: Performed By: #### L [id number] ####[facility] (DEFAULT)[address] [place] [address] Mean Cell Hgb 31.5 pg Normal 26.1-33.3 [facility] Comment on above: Performed By: #### L AB980 ####[facility] (DEFAULT)[address] [place] [address] Mean Cell Hgb Conc 33.2 g/dL Normal 31.9-36.5 [facility] Comment on above: Performed By: #### L AB980 ####[facility] (DEFAULT)[address] [place] [address] Monocytes (Bld) [#/Vol] 0.31 10*3/uL Normal 0.24-0.93 [facility] Comment on above: Performed By: #### L AB980 ####[facility] (DEFAULT)[address] [place] [address] Monocytes/100 WBC (Bld) 2.1 % Normal [facility] Comment on above: Performed By: #### L AB980 ####[facility] (DEFAULT)[address] [place] [address] Nucleated RBC 0.0 /100 WBC Normal <=0.2 [facility] Comment on above: Performed By: #### L [id number] ####[facility] (DEFAULT)[address] [place] [address] Platelet mean volume (Bld) [Entitic vol] 11.0 fL Normal 8.7-12.3 [facility] Comment on above: Performed By: #### L [id number] ####[facility] (DEFAULT)[address] [place] [address] Platelets (Bld) [#/Vol] 171 10*3/uL Normal 146-337 [facility] Comment on above: Performed By: #### L [id number] ####[facility] (DEFAULT)[address] [place] [address] RBC (Bld) [#/Vol] 3.08 10*6/uL Low 4.38-5.83 [facility] Comment on above: Performed By: #### L AB980 ####[facility] (DEFAULT)[address] [place] [address] RBC Distribution 17.8 % High 10.9-14.3 [facility] Comment on above: Performed By: #### L AB980 ####[facility] (DEFAULT)[address] [place] [address] Segs + Bands Auto 96.0 % Normal [facility] Comment on above: Performed By: #### L AB980 ####[facility] (DEFAULT)[address] [place] [address] Segs + Bands,Absolute Auto 14.36 K/uL High 1.57-6.19 [facility] Comment on above: Performed By: #### L AB980 ####[facility] (DEFAULT)[address] [place] [address] WBC (Bld) [#/Vol] 14.95 10*3/uL High 3.73-10.10 [facility] Comment on above: Performed By: #### L [id number] ####[facility] (DEFAULT)[address] [place] [address] Hematocrit (Bld) [Volume fraction] 34.2 % Low 39.6-48.8 [facility] Comment on above: Performed By: #### L [id number] ####[facility] (DEFAULT)[address] [place] [address] Hemoglobin (Bld) [Mass/Vol] 11.3 g/dL Low 13.4-16.8 [facility] Comment on above: Performed By: #### L [id number] ####[facility] (DEFAULT)[address] [place] [address] MCV (RBC) [Entitic vol] 94.7 fL High 79.0-94.5 [facility] Comment on above: Performed By: #### L [id number] ####[facility] (DEFAULT)[address] [place] [address] Mean Cell Hgb 31.3 pg Normal 26.1-33.3 [facility] Comment on above: Performed By: #### L AB980 ####[facility] (DEFAULT)[address] [place] [address] Mean Cell Hgb Conc 33.0 g/dL Normal 31.9-36.5 [facility] Comment on above: Performed By: #### L [id number] ####[facility] (DEFAULT)[address] [place] [address] Platelet mean volume (Bld) [Entitic vol] 11.0 fL Normal 8.7-12.3 [facility] Comment on above: Performed By: #### L [id number] ####[facility] (DEFAULT)[address] [place] [address] Platelets (Bld) [#/Vol] 199 10*3/uL Normal 146-337 [facility] Comment on above: Performed By: #### L [id number] ####[facility] (DEFAULT)[address] [place] [address] RBC (Bld) [#/Vol] 3.61 10*6/uL Low 4.38-5.83 [facility] Comment on above: Performed By: #### L AB980 ####[facility] (DEFAULT)[address] [place] [address] RBC Distribution 17.8 % High 10.9-14.3 [facility] Comment on above: Performed By: #### L AB980 ####[facility] (DEFAULT)[address] [place] [address] WBC (Bld) [#/Vol] 16.07 10*3/uL High 3.73-10.10 [facility] Comment on above: Performed By: #### L [id number] ####[facility] (DEFAULT)[address] [place] [address] CHEM 7 (LYTES,BUN,CREA,GLUC) on 05-26-2024 Anion gap [Moles/Vol] 11 mmol/L Normal 7-17 [facility] Comment on above: Performed By: #### I PB, HFP, CHM7, MGO, CA ####[facility] (DEFAULT)[address] [place] [address] Chloride [Moles/Vol] 101 mmol/L Normal 98-108 [facility] Comment on above: Performed By: #### I PB, HFP, CHM7, MGO, CA ####[facility] (DEFAULT)[address] [place] [address] CO2 [Moles/Vol] 33 mmol/L High 21-31 [facility] Comment on above: Performed By: #### I PB, HFP, CHM7, MGO, CA ####[facility] (DEFAULT)[address] [place] [address] Creatinine [Mass/Vol] 0.53 mg/dL Low 0.70-1.30 [facility] Comment on above: Performed By: #### I PB, HFP, CHM7, MGO, CA ####[facility] (DEFAULT)[address] [place] [address] eGFR, CKD-EPI, Male > Normal >=60 [facility] Comment on above: Result Comment: Repo rted eGFR is based on the CKD-EPI 2020 equation using creatinine, age, and sex. Performed By: #### I PB, HFP, CHM7, MGO, CA ####[facility] (DEFAULT)[address] [place] [address] Glucose [Mass/Vol] 127 mg/dL Normal Nonfastin -179 mg/dL; Fastin-99 [facility] Comment on above: Performed By: #### I PB, HFP, CHM7, MGO, CA ####[facility] (DEFAULT)[address] [place] [address] Osmolality [Osmolality] 298 mosm/kg Normal 278-305 [facility] Comment on above: Performed By: #### I PB, HFP, CHM7, MGO, CA ####[facility] (DEFAULT)[address] [place] [address] Potassium [Moles/Vol] 4.3 mmol/L Normal 3.5-5.0 [facility] Comment on above: Performed By: #### I PB, HFP, CHM7, MGO, CA ####[facility] (DEFAULT)[address] [place] [address] Sodium [Moles/Vol] 141 mmol/L Normal 135-145 [facility] Comment on above: Performed By: #### I PB, HFP, CHM7, MGO, CA ####[facility] (DEFAULT)[address] [place] [address] Urea nitrogen [Mass/Vol] 16 mg/dL Normal 7-25 [facility] Comment on above: Performed By: #### I PB, HFP, CHM7, MGO, CA ####[facility] (DEFAULT)[address] [place] [address] Urea nitrogen/Creatinine [Mass ratio] 30 mg/mg Normal [facility] Comment on above: Performed By: #### I PB, HFP, CHM7, MGO, CA ####[facility] (DEFAULT)[address] [place] [address] Anion gap [Moles/Vol] 13 mmol/L Normal 7-17 [facility] Comment on above: Performed By: #### I PB, HFP, CHM7, MGO, CA ####[facility] (DEFAULT)[address] [place] [address] Chloride [Moles/Vol] 104 mmol/L Normal 98-108 [facility] Comment on above: Performed By: #### I PB, HFP, CHM7, MGO, CA ####[facility] (DEFAULT)[address] [place] [address] CO2 [Moles/Vol] 30 mmol/L Normal 21-31 [facility] Comment on above: Performed By: #### I PB, HFP, CHM7, MGO, CA ####[facility] (DEFAULT)[address] [place] [address] Creatinine [Mass/Vol] 0.58 mg/dL Low 0.70-1.30 [facility] Comment on above: Performed By: #### I PB, HFP, CHM7, MGO, CA ####[facility] (DEFAULT)[address] [place] [address] eGFR, CKD-EPI, Male > Normal >=60 [facility] Comment on above: Result Comment: Repo rted eGFR is based on the CKD-EPI 2020 equation using creatinine, age, and sex. Performed By: #### I PB, HFP, CHM7, MGO, CA ####[facility] (DEFAULT)[address] [place] [address] Glucose [Mass/Vol] 118 mg/dL Normal Nonfastin -179 mg/dL; Fastin-99 [facility] Comment on above: Performed By: #### I PB, HFP, CHM7, MGO, CA ####[facility] (DEFAULT)[address] [place] [address] Osmolality [Osmolality] 301 mosm/kg Normal 278-305 [facility] Comment on above: Performed By: #### I PB, HFP, CHM7, MGO, CA ####[facility] (DEFAULT)[address] [place] [address] Potassium [Moles/Vol] 4.3 mmol/L Normal 3.5-5.0 [facility] Comment on above: Performed By: #### I PB, HFP, CHM7, MGO, CA ####[facility] (DEFAULT)[address] [place] [address] Sodium [Moles/Vol] 143 mmol/L Normal 135-145 [facility] Comment on above: Performed By: #### I PB, HFP, CHM7, MGO, CA ####[facility] (DEFAULT)[address] [place] [address] Urea nitrogen [Mass/Vol] 14 mg/dL Normal 7-25 [facility] Comment on above: Performed By: #### I PB, HFP, CHM7, MGO, CA ####[facility] (DEFAULT)[address] [place] [address] Urea nitrogen/Creatinine [Mass ratio] 24 mg/mg Normal [facility] Comment on above: Performed By: #### I PB, HFP, CHM7, MGO, CA ####[facility] (DEFAULT)[address] [place] [address] Anion gap [Moles/Vol] 16 mmol/L Normal 7-17 [facility] Comment on above: Performed By: #### H FP, IPB, CHM7, MGO, CA ####[facility] (DEFAULT)[address] [place] [address] Chloride [Moles/Vol] 107 mmol/L Normal 98-108 [facility] Comment on above: Performed By: #### H FP, IPB, CHM7, MGO, CA ####[facility] (DEFAULT)[address] [place] [address] CO2 [Moles/Vol] 27 mmol/L Normal 21-31 [facility] Comment on above: Performed By: #### H FP, IPB, CHM7, MGO, CA ####[facility] (DEFAULT)[address] [place] [address] Creatinine [Mass/Vol] 0.62 mg/dL Low 0.70-1.30 [facility] Comment on above: Performed By: #### H FP, IPB, CHM7, MGO, CA ####[facility] (DEFAULT)[address] [place] [address] eGFR, CKD-EPI, Male > Normal >=60 [facility] Comment on above: Result Comment: Repo rted eGFR is based on the CKD-EPI 2020 equation using creatinine, age, and sex. Performed By: #### H FP, IPB, CHM7, MGO, CA ####[facility] (DEFAULT)[address] [place] [address] Glucose [Mass/Vol] 128 mg/dL Normal Nonfastin -179 mg/dL; Fastin-99 [facility] Comment on above: Performed By: #### H FP, IPB, CHM7, MGO, CA ####[facility] (DEFAULT)[address] [place] [address], [place] [address] Osmolality [Osmolality] 304 mosm/kg Normal 278-305 [facility] Comment on above: Performed By: #### H FP, IPB, CHM7, MGO, CA ####[facility] (DEFAULT)[address] [place] [address], [place] [address] Potassium [Moles/Vol] 4.5 mmol/L Normal 3.5-5.0 [facility] Comment on above: Performed By: #### H FP, IPB, CHM7, MGO, CA ####[facility] (DEFAULT)[address] [place] [address] Sodium [Moles/Vol] 145 mmol/L Normal 135-145 [facility] Comment on above: Performed By: #### H FP, IPB, CHM7, MGO, CA ####[facility] (DEFAULT)[address] [place] [address] Urea nitrogen [Mass/Vol] 11 mg/dL Normal 7-25 [facility] Comment on above: Performed By: #### H FP, IPB, CHM7, MGO, CA ####[facility] (DEFAULT)[address] [place] [address] Urea nitrogen/Creatinine [Mass ratio] 18 mg/mg Normal [facility] Comment on above: Performed By: #### H FP, IPB, CHM7, MGO, CA ####[facility] (DEFAULT)[address] [place] [address] Anion gap [Moles/Vol] 18 mmol/L High 7-17 [facility] Comment on above: Performed By: #### H FP, IPB, MGO, CHM7, CA ####[facility] (DEFAULT)[address] [place] [address] Chloride [Moles/Vol] 105 mmol/L Normal 98-108 [facility] Comment on above: Performed By: #### H FP, IPB, MGO, CHM7, CA ####[facility] (DEFAULT)[address] [place] [address] CO2 [Moles/Vol] 24 mmol/L Normal 21-31 [facility] Comment on above: Performed By: #### H FP, IPB, MGO, CHM7, CA ####[facility] (DEFAULT)[address] [place] [address] Creatinine [Mass/Vol] 0.65 mg/dL Low 0.70-1.30 [facility] Comment on above: Performed By: #### H FP, IPB, MGO, CHM7, CA ####[facility] (DEFAULT)[address] [place] [address] eGFR, CKD-EPI, Male > Normal >=60 [facility] Comment on above: Result Comment: Repo rted eGFR is based on the CKD-EPI 2020 equation using creatinine, age, and sex. Performed By: #### H FP, IPB, MGO, CHM7, CA ####[facility] (DEFAULT)[address] [place] [address] Glucose [Mass/Vol] 209 mg/dL High Nonfastin -179 mg/dL; Fastin-99 [facility] Comment on above: Performed By: #### H FP, IPB, MGO, CHM7, CA ####[facility] (DEFAULT)[address] [place] [address] Osmolality [Osmolality] 305 mosm/kg Normal 278-305 [facility] Comment on above: Performed By: #### H FP, IPB, MGO, CHM7, CA ####[facility] (DEFAULT)[address] [place] [address] Potassium [Moles/Vol] 3.9 mmol/L Normal 3.5-5.0 [facility] Comment on above: Performed By: #### H FP, IPB, MGO, CHM7, CA ####[facility] (DEFAULT)[address] [place] [address] Sodium [Moles/Vol] 143 mmol/L Normal 135-145 [facility] Comment on above: Performed By: #### H FP, IPB, MGO, CHM7, CA ####[facility] (DEFAULT)[address] [place] [address] Urea nitrogen [Mass/Vol] 11 mg/dL Normal 7-25 [facility] Comment on above: Performed By: #### H FP, IPB, MGO, CHM7, CA ####[facility] (DEFAULT)[address] [place] [address] Urea nitrogen/Creatinine [Mass ratio] 17 mg/mg Normal [facility] Comment on above: Performed By: #### H FP, IPB, MGO, CHM7, CA ####[facility] (DEFAULT)[address] [place] [address] FIBRINOGEN, CLOTTABLEon 03-2 Fibrinogen-Clottable 332 mg/dL Normal 220-410 [facility] Comment on above: Result Comment: Func tional Fibrinogen (activity) levels can be affected by direct thrombin inhibitors such as heparins (>2.0 IU/ml) and dabigatran. Abnormal results should be interpreted with caution. Performed By: #### P TPTT, FIB ####[facility] (DEFAULT)[address] [place] [address] Fibrinogen-Clottable 346 mg/dL Normal 220-410 [facility] Comment on above: Result Comment: Func tional Fibrinogen (activity) levels can be affected by direct thrombin inhibitors such as heparins (>2.0 IU/ml) and dabigatran. Abnormal results should be interpreted with caution. Performed By: #### P TPTT, FIB ####[facility] (DEFAULT)[address] [place] [address] Fibrinogen-Clottable 315 mg/dL Normal 220-410 [facility] Comment on above: Result Comment: Func tional Fibrinogen (activity) levels can be affected by direct thrombin inhibitors such as heparins (>2.0 IU/ml) and dabigatran. Abnormal results should be interpreted with caution. Performed By: #### P TPTT, FIB ####[facility] (DEFAULT)[address] [place] [address] Fibrinogen-Clottable 366 mg/dL Normal 220-410 [facility] Comment on above: Result Comment: Func tional Fibrinogen (activity) levels can be affected by direct thrombin inhibitors such as heparins (>2.0 IU/ml) and dabigatran. Abnormal results should be interpreted with caution. Performed By: #### P TPTT, FIB ####[facility] (DEFAULT)[address] [place] [address] HEPATIC FUNCTION PANELon Albumin [Mass/Vol] 3.6 g/dL Normal 3.5-5.0 [facility] Comment on above: Performed By: #### I PB, HFP, CHM7, MGO, CA ####[facility] (DEFAULT)[address] [place] [address] ALP [Catalytic activity/Vol] 248 U/L High 32-126 [facility] Comment on above: Performed By: #### I PB, HFP, CHM7, MGO, CA ####[facility] (DEFAULT)[address] [place] [address] ALT [Catalytic activity/Vol] 124 U/L High 10-52 [facility] Comment on above: Performed By: #### I PB, HFP, CHM7, MGO, CA ####[facility] (DEFAULT)[address] [place] [address] AST [Catalytic activity/Vol] 314 U/L High 10-39 [facility] Comment on above: Performed By: #### I PB, HFP, CHM7, MGO, CA ####[facility] (DEFAULT)[address] [place] [address] Bilirubin [Mass/Vol] 3.3 mg/dL High <1.5 [facility] Comment on above: Performed By: #### I PB, HFP, CHM7, MGO, CA ####[facility] (DEFAULT)[address] [place] [address] Bilirubin.indirect [Mass/Vol] 1.5 mg/dL High <0.3 [facility] Comment on above: Performed By: #### I PB, HFP, CHM7, MGO, CA ####[facility] (DEFAULT)[address] [place] [address] Protein [Mass/Vol] 5.8 g/dL Low 6.4-8.3 [facility] Comment on above: Performed By: #### I PB, HFP, CHM7, MGO, CA ####[facility] (DEFAULT)[address] [place] [address] Albumin [Mass/Vol] 3.7 g/dL Normal 3.5-5.0 [facility] Comment on above: Performed By: #### I PB, HFP, CHM7, MGO, CA ####[facility] (DEFAULT)[address] [place] [address] ALP [Catalytic activity/Vol] 266 U/L High 32-126 [facility] Comment on above: Performed By: #### I PB, HFP, CHM7, MGO, CA ####[facility] (DEFAULT)[address] [place] [address] ALT [Catalytic activity/Vol] 135 U/L High 10-52 [facility] Comment on above: Performed By: #### I PB, HFP, CHM7, MGO, CA ####[facility] (DEFAULT)[address] [place] [address] AST [Catalytic activity/Vol] 480 U/L High 10-39 [facility] Comment on above: Performed By: #### I PB, HFP, CHM7, MGO, CA ####[facility] (DEFAULT)[address] [place] [address] Bilirubin [Mass/Vol] 3.3 mg/dL High <1.5 [facility] Comment on above: Performed By: #### I PB, HFP, CHM7, MGO, CA ####[facility] (DEFAULT)[address] [place] [address] Bilirubin.indirect [Mass/Vol] 1.5 mg/dL High <0.3 [facility] Comment on above: Performed By: #### I PB, HFP, CHM7, MGO, CA ####[facility] (DEFAULT)[address] [place] [address] Protein [Mass/Vol] 6.0 g/dL Low 6.4-8.3 [facility] Comment on above: Performed By: #### I PB, HFP, CHM7, MGO, CA ####[facility] (DEFAULT)[address] [place] [address] Albumin [Mass/Vol] 3.5 g/dL Normal 3.5-5.0 [facility] Comment on above: Performed By: #### H FP, IPB, CHM7, MGO, CA ####[facility] (DEFAULT)[address] [place] [address] ALP [Catalytic activity/Vol] 260 U/L High 32-126 [facility] Comment on above: Performed By: #### H FP, IPB, CHM7, MGO, CA ####[facility] (DEFAULT)[address] [place] [address] ALT [Catalytic activity/Vol] 150 U/L High 10-52 [facility] Comment on above: Performed By: #### H FP, IPB, CHM7, MGO, CA ####[facility] (DEFAULT)[address] [place] [address] AST [Catalytic activity/Vol] 747 U/L High 10-39 [facility] Comment on above: Performed By: #### H FP, IPB, CHM7, MGO, CA ####[facility] (DEFAULT)[address] [place] [address] Bilirubin [Mass/Vol] 3.0 mg/dL High <1.5 [facility] Comment on above: Performed By: #### H FP, IPB, CHM7, MGO, CA ####[facility] (DEFAULT)[address] [place] [address] Bilirubin.indirect [Mass/Vol] 1.5 mg/dL High <0.3 [facility] Comment on above: Performed By: #### H FP, IPB, CHM7, MGO, CA ####[facility] (DEFAULT)[address] [place] [address] Protein [Mass/Vol] 5.6 g/dL Low 6.4-8.3 [facility] Comment on above: Performed By: #### H FP, IPB, CHM7, MGO, CA ####[facility] (DEFAULT)[address] [place] [address] Albumin [Mass/Vol] 3.2 g/dL Low 3.5-5.0 [facility] Comment on above: Performed By: #### H FP, IPB, MGO, CHM7, CA ####[facility] (DEFAULT)[address] [place] [address] ALP [Catalytic activity/Vol] 325 U/L High 32-126 [facility] Comment on above: Performed By: #### H FP, IPB, MGO, CHM7, CA ####[facility] (DEFAULT)[address] [place] [address] ALT [Catalytic activity/Vol] 169 U/L High 10-52 [facility] Comment on above: Performed By: #### H FP, IPB, MGO, CHM7, CA ####[facility] (DEFAULT)[address] [place] [address] AST [Catalytic activity/Vol] 1181 U/L High 10-39 [facility] Comment on above: Performed By: #### H FP, IPB, MGO, CHM7, CA ####[facility] (DEFAULT)[address] [place] [address] Bilirubin [Mass/Vol] 3.7 mg/dL High <1.5 [facility] Comment on above: Performed By: #### H FP, IPB, MGO, CHM7, CA ####[facility] (DEFAULT)[address] [place] [address] Bilirubin.indirect [Mass/Vol] 2.1 mg/dL High <0.3 [facility] Comment on above: Performed By: #### H FP, IPB, MGO, CHM7, CA ####[facility] (DEFAULT)[address] [place] [address] Protein [Mass/Vol] 5.9 g/dL Low 6.4-8.3 [facility] Comment on above: Performed By: #### H FP, IPB, MGO, CHM7, CA ####[facility] (DEFAULT)[address] [place] [address] IONIZED CALCIUM, WHOLE BLOOD on 05-26-2024 ICA 4.53 mg/dL Low 4.60-5.30 [facility] Comment on above: Performed By: #### I CA ####[facility] (DEFAULT)[address] [place] [address] ICA 4.54 mg/dL Low 4.60-5.30 [facility] Comment on above: Performed By: #### I CA ####[facility] (DEFAULT)[address] [place] [address] ICA 4.72 mg/dL Normal 4.60-5.30 [facility] Comment on above: Performed By: #### I CA ####[facility] (DEFAULT)[address] [place] [address] ICA 4.81 mg/dL Normal 4.60-5.30 [facility] Comment on above: Performed By: #### I CA ####[facility] (DEFAULT)[address] [place] [address] LACTATE, 2 HOUR DRAWon 05-26 2 Hour Lactate 2.6 mmol/L High 0.5-1.6 [facility] Comment on above: Performed By: #### L ACTATE, 2 HOUR DRAW ####[facility] (DEFAULT)[address] [place] [address] 2 Hour Lactate 5.5 mmol/L Critically high 0.5-1.6 [facility] Comment on above: Performed By: #### L ACTATE, 2 HOUR DRAW ####[facility] (DEFAULT)[address] [place] [address] LACTATE, BLOODon 05-26-2024 Lactate, Blood 7.9 mmol/L Critically high 0.5-1.6 [facility] Comment on above: Result Comment: Lact ate results >/= 2.0 mmol/L should be followed up with a measurement 2 hours later for patients with suspicion of sepsis. Performed By: #### L ACT ####[facility] (DEFAULT)[address] [place] [address] MAGNESIUMon 05-26-2024 Magnesium [Mass/Vol] 2.2 mg/dL Normal 1.6-2.6 [facility] Comment on above: Performed By: #### I PB, HFP, CHM7, MGO, CA ####[facility] (DEFAULT)[address] [place] [address] Magnesium [Mass/Vol] 2.2 mg/dL Normal 1.6-2.6 [facility] Comment on above: Performed By: #### I PB, HFP, CHM7, MGO, CA ####[facility] (DEFAULT)[address] [place] [address] Magnesium [Mass/Vol] 2.7 mg/dL High 1.6-2.6 [facility] Comment on above: Performed By: #### H FP, IPB, CHM7, MGO, CA ####[facility] (DEFAULT)[address] [place] [address] Magnesium [Mass/Vol] 1.8 mg/dL Normal 1.6-2.6 [facility] Comment on above: Performed By: #### H FP, IPB, MGO, CHM7, CA ####[facility] (DEFAULT)[address] [place] [address] PHOSPHATE, INORGANICon 05-26 Phosphorous 3.5 mg/dL Normal 2.2-4.6 [facility] Comment on above: Performed By: #### I PB, HFP, CHM7, MGO, CA ####[facility] (DEFAULT)[address] [place] [address] Phosphorous 4.0 mg/dL Normal 2.2-4.6 [facility] Comment on above: Performed By: #### I PB, HFP, CHM7, MGO, CA ####[facility] (DEFAULT)[address] [place] [address] Phosphorous 4.3 mg/dL Normal 2.2-4.6 [facility] Comment on above: Performed By: #### H FP, IPB, CHM7, MGO, CA ####[facility] (DEFAULT)[address] [place] [address] Phosphorous 2.2 mg/dL Normal 2.2-4.6 [facility] Comment on above: Performed By: #### H FP, IPB, MGO, CHM7, CA ####[facility] (DEFAULT)[address] [place] [address] PT,INR,PTTon 05-26-2024 aPTT Coag (Bld) [Time] 31.0 s Normal 24.0-34.3 [facility] Comment on above: Performed By: #### P TPTT, FIB ####[facility] (DEFAULT)[address] [place] [address] INR Coag (PPP) [Relative time] 1.7 {INR} High 0.9-1.1 [facility] Comment on above: Performed By: #### P TPTT, FIB ####[facility] (DEFAULT)[address] [place] [address] PT Coag (PPP) [Time] 20.1 s High 11.9-14.2 [facility] Comment on above: Performed By: #### P TPTT, FIB ####[facility] (DEFAULT)[address] [place] [address] aPTT Coag (Bld) [Time] 31.6 s Normal 24.0-34.3 [facility] Comment on above: Performed By: #### P TPTT, FIB ####[facility] (DEFAULT)[address] [place] [address] INR Coag (PPP) [Relative time] 1.7 {INR} High 0.9-1.1 [facility] Comment on above: Performed By: #### P TPTT, FIB ####[facility] (DEFAULT)[address] [place] [address] PT Coag (PPP) [Time] 19.4 s High 11.9-14.2 [facility] Comment on above: Performed By: #### P TPTT, FIB ####[facility] (DEFAULT)[address] [place] [address] aPTT Coag (Bld) [Time] 34.2 s Normal 24.0-34.3 [facility] Comment on above: Performed By: #### P TPTT, FIB ####[facility] (DEFAULT)[address] [place] [address] INR Coag (PPP) [Relative time] 2.0 {INR} High 0.9-1.1 [facility] Comment on above: Performed By: #### P TPTT, FIB ####[facility] (DEFAULT)[address] [place] [address] PT Coag (PPP) [Time] 22.4 s High 11.9-14.2 [facility] Comment on above: Performed By: #### P TPTT, FIB ####[facility] (DEFAULT)[address] [place] [address] aPTT Coag (Bld) [Time] 36.6 s High 24.0-34.3 [facility] Comment on above: Performed By: #### P TPTT, FIB ####[facility] (DEFAULT)[address] [place] [address] INR Coag (PPP) [Relative time] 1.7 {INR} High 0.9-1.1 [facility] Comment on above: Performed By: #### P TPTT, FIB ####[facility] (DEFAULT)[address] [place] [address] PT Coag (PPP) [Time] 20.3 s High 11.9-14.2 [facility] Comment on above: Performed By: #### P TPTT, FIB ####[facility] (DEFAULT)[address] [place] [address], [place] [address] US ABDOMEN LIVER TRANSPLANT DOPPLERon 05-26-2024 US ABDOMEN LIVER TRANSPLANT DOPPLER Normal [facility] XR CHEST 1 VIEW PORTABLEon 0 05-26-2024 XR CHEST [address] [facility] XR CHEST [address] [facility] ACID FAST CULTUREon 05-26-19 25 Bacteria identified Cx Nom (Unsp spec) NO GROWTH DAY 42 OF 42 Normal [facility] Comment on above: Performed By: #### A FB ####[facility] (DEFAULT)[address] [place] [address], [place] [address] Fluorochrome Stain No acid Fast Bacillu s Seen Normal [facility] Comment on above: Performed By: #### A FB ####[facility] (DEFAULT)[address] [place] [address], [place] [address] AMYLASEon 05-25-2024 Amylase [Catalytic activity/Vol] 73 U/L Normal 20-103 [facility] Comment on above: Performed By: #### H FP, CHM7, IRBC, CA, AMYB ####[facility] (DEFAULT)[address] [place] [address] ANAEROBE CULTUREon 5 Bacteria identified Cx Nom (Unsp spec) No anaerobic growth Normal [facility] Comment on above: Order Comment: Colle ct fluids or tissues in a sterile container. If collecting swabs, must be collected in a Port-A-Cul tube. Performed By: #### A MICHAELA ####[facility] (DEFAULT)[address] [place] [address] ARTERIAL BLOOD GASon 025 Base Excess 1.2 mmol/L Normal -3.0-3.0 [facility] Comment on above: Performed By: #### G AS5 ####[facility] (DEFAULT)[address] [place] [address] HCO3 (Bld) [Moles/Vol] 26 mmol/L Normal 22-28 [facility] Comment on above: Performed By: #### G AS5 ####[facility] (DEFAULT)[address] [place] [address], [place] [address] Oxygen saturation in Blood 100 % High 94-98 [facility] Comment on above: Performed By: #### G AS5 ####[facility] (DEFAULT)[address] [place] [address], [place] [address] pCO2 42 mm Hg Normal 32-48 [facility] Comment on above: Performed By: #### G AS5 ####[facility] (DEFAULT)[address] [place] [address], [place] [address] pH, Arterial 7.40 Normal 7.35-7.45 [facility] Comment on above: Performed By: #### G AS5 ####[facility] (DEFAULT)[address] [place] [address], [place] [address] pO2 141 mm Hg High 83-108 [facility] Comment on above: Performed By: #### G AS5 ####[facility] (DEFAULT)[address] [place] [address], [place] [address] Specimen type Nom (Spec) Arterial Normal [facility] Comment on above: Performed By: #### G AS5 ####[facility] (DEFAULT)[address] [place] [address] BODY FLUID CULTURE AND DIREC T SMEARon 05-25-2024 Fluconazole [Susceptibility] 64 ug/mL Invalid Interpretation Code Susceptible <=0 ug/mL, Unknown >0 ug/mL [facility] Comment on above: Order Comment: Note: U (Unknown) is used to interpret results when CLSI Interpretive Guidelines are not available.This test was performed using a broth microdilution test method. This test was developed and its performance characteristics determined by the [facility] at [facility]. It has not been cleared or approved by the U.S. Food and Drug Administration. The laboratory is regulated under CLIA as qualified to perform high complexity testing. This test is used for clinical purposes. It should not be regarded as investigational or for research. Performed By: #### B FLD ####[facility] (DEFAULT)[address] [place] [address] Micafungin [Susceptibility] 0.12 ug/mL Invalid Interpretation Code Susceptible <=0 ug/mL, Unknown >0 ug/mL [facility] Comment on above: Order Comment: Note: U (Unknown) is used to interpret results when CLSI Interpretive Guidelines are not available.This test was performed using a broth microdilution test method. This test was developed and its performance characteristics determined by the [facility] at [facility]. It has not been cleared or approved by the U.S. Food and Drug Administration. The laboratory is regulated under CLIA as qualified to perform high complexity testing. This test is used for clinical purposes. It should not be regarded as investigational or for research. Performed By: #### B FLD ####[facility] (DEFAULT)[address] [place] [address] CALCIUMon 05-25-2024 Calcium [Mass/Vol] 10.0 mg/dL Normal 8.6-10.5 [facility] Comment on above: Performed By: #### C HM7, HFP, IPB, MGO, CA ####[facility] (DEFAULT)[address] [place] [address] Calcium [Mass/Vol] 8.9 mg/dL Normal 8.6-10.5 [facility] Comment on above: Performed By: #### H FP, CHM7, IRBC, CA, AMYB ####[facility] (DEFAULT)[address] [place] [address] NAEEM AURIS SCREEN BY PCRo n 05-25-2024 Naeem auris Screen by PCR Not detected Normal Not Detected [facility] Comment on above: Order Comment: This test was performed using a real-time PCR assay. This test was developed, and its performance characteristics determined by The [facility] at [facility]. It has not been cleared or approved by the FDA. The laboratory is regulated under CLIA as qualified to perform high-complexity testing. This test is used for clinical purposes. It should not be regarded as investigational or for research. Performed By: #### C ANDIDA AURIS SCREEN BY PCR ####[facility] (DEFAULT)[address] [place] [address] CBC AND ELECTRONIC DIFFon Abs Baso Auto < Normal 0.00-0.09 [facility] Comment on above: Performed By: #### L [id number] ####[facility] (DEFAULT)[address] [place] [address] Abs Eos Auto < Normal 0.00-0.48 [facility] Comment on above: Performed By: #### L [id number] ####[facility] (DEFAULT)[address] [place] [address] Basophils/100 WBC (Bld) 0.2 % Normal [facility] Comment on above: Performed By: #### L [id number] ####[facility] (DEFAULT)[address] [place] [address] DIFF STATUS Electronic Differential Normal [facility] Comment on above: Performed By: #### L [id number] ####[facility] (DEFAULT)[address] [place] [address] Eosinophils/100 WBC (Bld) 0.0 % Normal [facility] Comment on above: Performed By: #### L [id number] ####[facility] (DEFAULT)[address] [place] [address] Hematocrit (Bld) [Volume fraction] 31.3 % Low 39.6-48.8 [facility] Comment on above: Performed By: #### L [id number] ####[facility] (DEFAULT)[address] [place] [address] Hemoglobin (Bld) [Mass/Vol] 10.4 g/dL Low 13.4-16.8 [facility] Comment on above: Performed By: #### L [id number] ####[facility] (DEFAULT)[address] [place] [address] Immature Grans % 0.2 % Normal [facility] Comment on above: Performed By: #### L [id number] ####[facility] (DEFAULT)[address] [place] [address] Immature Grans Absolute < Normal <=0.07 [facility] Comment on above: Performed By: #### L [id number] ####[facility] (DEFAULT)[address] [place] [address] Lymphocytes (Bld) [#/Vol] 0.19 10*3/uL Low 0.83-3.57 [facility] Comment on above: Performed By: #### L [id number] ####[facility] (DEFAULT)[address] [place] [address] Lymphocytes/100 WBC (Bld) 2.3 % Normal [facility] Comment on above: Performed By: #### L [id number] ####[facility] (DEFAULT)[address] [place] [address] MCV (RBC) [Entitic vol] 93.7 fL Normal 79.0-94.5 [facility] Comment on above: Performed By: #### L [id number] ####[facility] (DEFAULT)[address] [place] [address] Mean Cell Hgb 31.1 pg Normal 26.1-33.3 [facility] Comment on above: Performed By: #### L [id number] ####[facility] (DEFAULT)[address] [place] [address] Mean Cell Hgb Conc 33.2 g/dL Normal 31.9-36.5 [facility] Comment on above: Performed By: #### L AB980 ####[facility] (DEFAULT)[address] [place] [address] Monocytes (Bld) [#/Vol] 0.25 10*3/uL Normal 0.24-0.93 [facility] Comment on above: Performed By: #### L [id number] ####[facility] (DEFAULT)[address] [place] [address] Monocytes/100 WBC (Bld) 3.0 % Normal [facility] Comment on above: Performed By: #### L [id number] ####[facility] (DEFAULT)[address] [place] [address] Nucleated RBC 0.0 /100 WBC Normal <=0.2 [facility] Comment on above: Performed By: #### L [id number] ####[facility] (DEFAULT)[address] [place] [address] Platelet mean volume (Bld) [Entitic vol] 11.5 fL Normal 8.7-12.3 [facility] Comment on above: Performed By: #### L [id number] ####[facility] (DEFAULT)[address] [place] [address] Platelets (Bld) [#/Vol] 197 10*3/uL Normal 146-337 [facility] Comment on above: Performed By: #### L [id number] ####[facility] (DEFAULT)[address] [place] [address] RBC (Bld) [#/Vol] 3.34 10*6/uL Low 4.38-5.83 [facility] Comment on above: Performed By: #### L [id number] ####[facility] (DEFAULT)[address] [place] [address] RBC Distribution 17.2 % High 10.9-14.3 [facility] Comment on above: Performed By: #### L AB980 ####[facility] (DEFAULT)[address] [place] [address] Segs + Bands Auto 94.3 % Normal [facility] Comment on above: Performed By: #### L [id number] ####[facility] (DEFAULT)[address] [place] [address] Segs + Bands,Absolute Auto 7.77 K/uL High 1.57-6.19 [facility] Comment on above: Performed By: #### L [id number] ####[facility] (DEFAULT)[address] [place] [address] WBC (Bld) [#/Vol] 8.25 10*3/uL Normal 3.73-10.10 [facility] Comment on above: Performed By: #### L [id number] ####[facility] (DEFAULT)[address] [place] [address] Abs Baso Auto < Normal 0.00-0.09 [facility] Comment on above: Performed By: #### L [id number] ####[facility] (DEFAULT)[address] [facility] [place] [address] Abs Eos Auto < Normal 0.00-0.48 [facility] Comment on above: Performed By: #### L [id number] ####[facility] (DEFAULT)[address] [place] [address] Basophils/100 WBC (Bld) 0.6 % Normal [facility] Comment on above: Performed By: #### L [id number] ####[facility] (DEFAULT)[address] [place] [address] DIFF STATUS Electronic Differential Normal [facility] Comment on above: Performed By: #### L [id number] ####[facility] [facility] (DEFAULT)[address] [place] [address] Eosinophils/100 WBC (Bld) 0.0 % Normal [facility] Comment on above: Performed By: #### L [id number] ####[facility] (DEFAULT)[address] [place] [address] Hematocrit (Bld) [Volume fraction] 33.7 % Low 39.6-48.8 [facility] Comment on above: Performed By: #### L AB980 ####[facility] (DEFAULT)[address] [place] [address], [place] [address] Hemoglobin (Bld) [Mass/Vol] 11.3 g/dL Low 13.4-16.8 [facility] Comment on above: Performed By: #### L AB980 ####[facility] (DEFAULT)[address] [place] [address] Immature Grans % 0.4 % Normal [facility] Comment on above: Performed By: #### L AB980 ####[facility] (DEFAULT)[address] [place] [address], [place] [address] Immature Grans Absolute < Normal <=0.07 [facility] Comment on above: Performed By: #### L AB980 ####[facility] (DEFAULT)[address] [place] [address] Lymphocytes (Bld) [#/Vol] 0.79 10*3/uL Low 0.83-3.57 [facility] Comment on above: Performed By: #### L AB980 ####[facility] (DEFAULT)[address] [place] [address] Lymphocytes/100 WBC (Bld) 15.1 % Normal [facility] Comment on above: Performed By: #### L AB980 ####[facility] (DEFAULT)[address] [place] [address] MCV (RBC) [Entitic vol] 95.5 fL High 79.0-94.5 [facility] Comment on above: Performed By: #### L AB980 ####[facility] (DEFAULT)[address] [place] [address] Mean Cell Hgb 32.0 pg Normal 26.1-33.3 [facility] Comment on above: Performed By: #### L AB980 ####[facility] (DEFAULT)[address] [place] [address] Mean Cell Hgb Conc 33.5 g/dL Normal 31.9-36.5 [facility] Comment on above: Performed By: #### L AB980 ####[facility] (DEFAULT)[address] [place] [address] Monocytes (Bld) [#/Vol] 0.46 10*3/uL Normal 0.24-0.93 [facility] Comment on above: Performed By: #### L AB980 ####[facility] (DEFAULT)[address] [place] [address] Monocytes/100 WBC (Bld) 8.8 % Normal [facility] Comment on above: Performed By: #### L AB980 ####[facility] (DEFAULT)[address] [place] [address] Nucleated RBC 0.0 /100 WBC Normal <=0.2 [facility] Comment on above: Performed By: #### L AB980 ####[facility] (DEFAULT)[address] [place] [address] Platelet mean volume (Bld) [Entitic vol] 10.9 fL Normal 8.7-12.3 [facility] Comment on above: Performed By: #### L AB980 ####[facility] (DEFAULT)[address] [place] [address] Platelets (Bld) [#/Vol] 257 10*3/uL Normal 146-337 [facility] Comment on above: Performed By: #### L AB980 ####[facility] (DEFAULT)[address] [place] [address] RBC (Bld) [#/Vol] 3.53 10*6/uL Low 4.38-5.83 [facility] Comment on above: Performed By: #### L AB980 ####[facility] (DEFAULT)[address] [place] [address] RBC Distribution 16.1 % High 10.9-14.3 [facility] Comment on above: Performed By: #### L AB980 ####[facility] (DEFAULT)[address] [place] [address] Segs + Bands Auto 75.1 % Normal [facility] Comment on above: Performed By: #### L AB980 ####[facility] (DEFAULT)[address] [place] [address] Segs + Bands,Absolute Auto 3.92 K/uL Normal 1.57-6.19 [facility] Comment on above: Performed By: #### L AB980 ####[facility] (DEFAULT)[address] [place] [address] WBC (Bld) [#/Vol] 5.22 10*3/uL Normal 3.73-10.10 [facility] Comment on above: Performed By: #### L AB980 ####[facility] (DEFAULT)[address] [place] [address] CHEM 7 (LYTES,BUN,CREA,GLUC) on 05-25-2024 Anion gap [Moles/Vol] 20 mmol/L High 7-17 [facility] Comment on above: Performed By: #### C HM7, HFP, IPB, MGO, CA ####[facility] (DEFAULT)[address] [place] [address] Chloride [Moles/Vol] 106 mmol/L Normal 98-108 [facility] Comment on above: Performed By: #### C HM7, HFP, IPB, MGO, CA ####[facility] (DEFAULT)[address] [place] [address] CO2 [Moles/Vol] 23 mmol/L Normal 21-31 [facility] Comment on above: Performed By: #### C HM7, HFP, IPB, MGO, CA ####[facility] (DEFAULT)[address] [place] [address] Creatinine [Mass/Vol] 0.60 mg/dL Low 0.70-1.30 [facility] Comment on above: Performed By: #### C HM7, HFP, IPB, MGO, CA ####[facility] (DEFAULT)[address] [place] [address] eGFR, CKD-EPI, Male > Normal >=60 [facility] Comment on above: Result Comment: Repo rted eGFR is based on the CKD-EPI 2020 equation using creatinine, age, and sex. Performed By: #### C HM7, HFP, IPB, MGO, CA ####[facility] (DEFAULT)[address] [place] [address] Glucose [Mass/Vol] 142 mg/dL Normal Nonfastin -179 mg/dL; Fastin-99 [facility] Comment on above: Performed By: #### C HM7, HFP, IPB, MGO, CA ####[facility] (DEFAULT)[address] [place] [address] Osmolality [Osmolality] 303 mosm/kg Normal 278-305 [facility] Comment on above: Performed By: #### C HM7, HFP, IPB, MGO, CA ####[facility] (DEFAULT)[address] [place] [address] Potassium [Moles/Vol] 4.7 mmol/L Normal 3.5-5.0 [facility] Comment on above: Performed By: #### C HM7, HFP, IPB, MGO, CA ####[facility] (DEFAULT)[address] [place] [address] Sodium [Moles/Vol] 144 mmol/L Normal 135-145 [facility] Comment on above: Performed By: #### C HM7, HFP, IPB, MGO, CA ####[facility] (DEFAULT)[address] [place] [address] Urea nitrogen [Mass/Vol] 10 mg/dL Normal 7-25 [facility] Comment on above: Performed By: #### C HM7, HFP, IPB, MGO, CA ####[facility] (DEFAULT)[address] [place] [address] Urea nitrogen/Creatinine [Mass ratio] 17 mg/mg Normal [facility] Comment on above: Performed By: #### C HM7, HFP, IPB, MGO, CA ####[facility] (DEFAULT)[address] [place] [address] Anion gap [Moles/Vol] 15 mmol/L Normal 7-17 [facility] Comment on above: Performed By: #### H FP, CHM7, IRBC, CA, AMYB ####[facility] (DEFAULT)[address] [place] [address] Chloride [Moles/Vol] 106 mmol/L Normal 98-108 [facility] Comment on above: Performed By: #### H FP, CHM7, IRBC, CA, AMYB ####[facility] (DEFAULT)[address] [place] [address] CO2 [Moles/Vol] 20 mmol/L Low 21-31 [facility] Comment on above: Performed By: #### H FP, CHM7, IRBC, CA, AMYB ####[facility] (DEFAULT)[address] [place] [address] Creatinine [Mass/Vol] 0.68 mg/dL Low 0.70-1.30 [facility] Comment on above: Performed By: #### H ROMINA JOSEPH, IRBC, CA, AMYB ####[facility] (DEFAULT)[address] [place] [address] eGFR, CKD-EPI, Male > Normal >=60 [facility] Comment on above: Result Comment: Repo rted eGFR is based on the CKD-EPI 2020 equation using creatinine, age, and sex. Performed By: #### H ROMINA JOSEPH, IRBC, CA, AMYB ####[facility] (DEFAULT)[address] [place] [address] Glucose [Mass/Vol] 90 mg/dL Normal Nonfastin -179 mg/dL; Fastin-99 [facility] Comment on above: Performed By: #### ROMINA HUYNH, IRBC, CA, AMYB ####[facility] (DEFAULT)[address] [place] [address] Osmolality [Osmolality] 287 mosm/kg Normal 278-305 [facility] Comment on above: Performed By: #### H YISSEL JOSEPHMJorgito, IRBC, CA, AMYB ####[facility] (DEFAULT)[address] [place] [address] Potassium [Moles/Vol] 4.1 mmol/L Normal 3.5-5.0 [facility] Comment on above: Performed By: #### H ROMINA JOSEPH, IRBC, CA, AMYB ####[facility] (DEFAULT)[address] [place] [address] Sodium [Moles/Vol] 137 mmol/L Normal 135-145 [facility] Comment on above: Performed By: #### H JAKE, YISSELM7, IRBC, CA, AMYB ####[facility] (DEFAULT)[address] [place] [address] Urea nitrogen [Mass/Vol] 14 mg/dL Normal 7-25 [facility] Comment on above: Performed By: #### H FP, CHM7, IRBC, CA, AMYB ####[facility] (DEFAULT)[address] [place] [address] Urea nitrogen/Creatinine [Mass ratio] 21 mg/mg Normal [facility] Comment on above: Performed By: #### H FP, CHM7, IRBC, CA, AMYB ####[facility] (DEFAULT)[address] [place] [address] CMV IGG ABon 05-25-2024 CMV IgG Antibody Negative Normal Negative [facility] Comment on above: Performed By: #### E BVG, CMVG ####[facility] (DEFAULT)[address] [place] [address] EBV VCA IGG ABo 05-25-2024 EBV VCA IgG Antibody Positive Abnormal Negative [facility] Comment on above: Performed By: #### E BVG, CMVG ####[facility] (DEFAULT)[address] [place] [address] FERRITINon 05-25-2024 Ferritin [Mass/Vol] 37.4 ng/mL Normal 10.5-307.3 [facility] Comment on above: Performed By: #### F ERIB ####[facility] (DEFAULT)[address] [place] [address] FIBRINOGEN, CLOTTABLEon - Fibrinogen-Clottable 335 mg/dL Normal 220-410 [facility] Comment on above: Result Comment: Func tional Fibrinogen (activity) levels can be affected by direct thrombin inhibitors such as heparins (>2.0 IU/ml) and dabigatran. Abnormal results should be interpreted with caution. Performed By: #### P TPTT, FIB ####[facility] (DEFAULT)[address] [place] [address] Fibrinogen-Clottable 483 mg/dL High 220-410 [facility] Comment on above: Result Comment: Func tional Fibrinogen (activity) levels can be affected by direct thrombin inhibitors such as heparins (>2.0 IU/ml) and dabigatran. Abnormal results should be interpreted with caution. Performed By: #### P TPTT, TT, FIB ####[facility] (DEFAULT)[address] [place] [address] FUNGUS CULTUREon 05-25-2024 Bacteria identified Cx Nom (Unsp spec) Normal [facility] Comment on above: Order Comment: \X09\ Identification was performed on the MALDI-TOF mass spectrometer Gocella. This test was developed by [facility] at [facility]. It has not been cleared or approved by the FDA. The laboratory is regulated under CLIA as qualified to perform high-complexity testing. This test is used for clinical purposes. It should not be regarded as investigational or for research. Result Comment: Grow [id number] Growth Naeem aurisRefer to specimen [id number] on 05/25/24 for susceptibilities.Critical value previously called. Performed By: #### F UN ####[facility] (DEFAULT)[address] [place] [address] HEMOGLOBIN A1Con 05-25-2024 Glucose [Mass/Vol] 103 mg/dL Normal [facility] Comment on above: Performed By: #### A 1CB ####[facility] (DEFAULT)[address] [place] [address] Hemoglobin A1C HPLC 5.2 % Normal 4.7-5.6 [facility] Comment on above: Performed By: #### A 1CB ####[facility] (DEFAULT)[address] [place] [address] HEPATIC FUNCTION PANELon Albumin [Mass/Vol] 3.1 g/dL Low 3.5-5.0 [facility] Comment on above: Performed By: #### C HM7, HFP, IPB, MGO, CA ####[facility] (DEFAULT)[address] [place] [address] ALP [Catalytic activity/Vol] 307 U/L High 32-126 [facility] Comment on above: Performed By: #### C HM7, HFP, IPB, MGO, CA ####[facility] (DEFAULT)[address] [place] [address] ALT [Catalytic activity/Vol] 147 U/L High 10-52 [facility] Comment on above: Performed By: #### C HM7, HFP, IPB, MGO, CA ####[facility] (DEFAULT)[address] [place] [address] AST [Catalytic activity/Vol] 741 U/L High 10-39 [facility] Comment on above: Performed By: #### C HM7, HFP, IPB, MGO, CA ####[facility] (DEFAULT)[address] [place] [address] Bilirubin [Mass/Vol] 3.6 mg/dL High <1.5 [facility] Comment on above: Performed By: #### C HM7, HFP, IPB, MGO, CA ####[facility] (DEFAULT)[address] [place] [address] Bilirubin.indirect [Mass/Vol] 2.1 mg/dL High <0.3 [facility] Comment on above: Performed By: #### C HM7, HFP, IPB, MGO, CA ####[facility] (DEFAULT)[address] [place] [address] Protein [Mass/Vol] 5.6 g/dL Low 6.4-8.3 [facility] Comment on above: Performed By: #### C HM7, HFP, IPB, MGO, CA ####[facility] (DEFAULT)[address] [place] [address] Albumin [Mass/Vol] 3.7 g/dL Normal 3.5-5.0 [facility] Comment on above: Performed By: #### H FP, CHM7, IRBC, CA, AMYB ####[facility] (DEFAULT)[address] [place] [address] ALP [Catalytic activity/Vol] 441 U/L High 32-126 [facility] Comment on above: Performed By: #### H FP, CHM7, IRBC, CA, AMYB ####[facility] (DEFAULT)[address] [place] [address] ALT [Catalytic activity/Vol] 66 U/L High 10-52 [facility] Comment on above: Performed By: #### H FP, CHM7, IRBC, CA, AMYB ####[facility] (DEFAULT)[address] [place] [address] AST [Catalytic activity/Vol] 105 U/L High 10-39 [facility] Comment on above: Performed By: #### H FP, CHM7, IRBC, CA, AMYB ####[facility] (DEFAULT)[address] [place] [address] Bilirubin [Mass/Vol] 4.1 mg/dL High <1.5 [facility] Comment on above: Performed By: #### H FP, CHM7, IRBC, CA, AMYB ####[facility] (DEFAULT)[address] [place] [address] Bilirubin.indirect [Mass/Vol] 2.3 mg/dL High <0.3 [facility] Comment on above: Performed By: #### H FP, CHM7, IRBC, CA, AMYB ####[facility] (DEFAULT)[address] [place] [address] Protein [Mass/Vol] 6.9 g/dL Normal 6.4-8.3 [facility] Comment on above: Performed By: #### H FP, CHM7, IRBC, CA, AMYB ####[facility] (DEFAULT)[address] [place] [address] HEPATITIS BATTERY, ACUTEon 0 05-25-2024 Hep B Core Ab,Total (IgG+IgM) Negative Normal Negative [facility] Comment on above: Performed By: #### H EP1B ####[facility] (DEFAULT)[address] [place] [address] Hep B Core IgM Ab Negative Normal Negative [facility] Comment on above: Performed By: #### H EP1B ####[facility] (DEFAULT)[address] [place] [address], [place] [address] Hepatitis A IgM Ab Negative Normal Negative [facility] Comment on above: Performed By: #### H EP1B ####[facility] (DEFAULT)[address] [place] [address] Hepatitis B Surface Ag Negative Normal Negative [facility] Comment on above: Performed By: #### H EP1B ####[facility] (DEFAULT)[address] [place] [address], [place] [address] Hepatitis C Antibody Negative Normal Negative [facility] Comment on above: Performed By: #### H EP1B ####[facility] (DEFAULT)[address] [place] [address] IONIZED CALCIUM, WHOLE BLOOD on 05-25-2024 ICA 4.97 mg/dL Normal 4.60-5.30 [facility] Comment on above: Performed By: #### I CA ####[facility] (DEFAULT)[address] [place] [address] IRON/IRON BINDING/TRANSFERRI Non 05-25-2024 Iron [Mass/Vol] 109 ug/dL Normal 40-174 [facility] Comment on above: Performed By: #### H FP, CHM7, IRBC, CA, AMYB ####[facility] (DEFAULT)[address] [place] [address] Iron Saturation 29 % Normal 20-55 [facility] Comment on above: Performed By: #### H FP, CHM7, IRBC, CA, AMYB ####[facility] (DEFAULT)[address] [place] [address] Total Iron Binding Capacity 376 mcg/dL Normal 250-425 [facility] Comment on above: Performed By: #### H FP, CHM7, IRBC, CA, AMYB ####[facility] (DEFAULT)[address] [place] [address] Transferrin [Mass/Vol] 301 mg/dL Normal 200-400 [facility] Comment on above: Performed By: #### H FP, CHM7, IRBC, CA, AMYB ####[facility] (DEFAULT)[address] [place] [address] LACTATE, BLOODon 05-25-2024 Lactate, Blood 6.3 mmol/L Critically high 0.5-1.6 [facility] Comment on above: Result Comment: Lact ate results >/= 2.0 mmol/L should be followed up with a measurement 2 hours later for patients with suspicion of sepsis. Performed By: #### L ACT ####[facility] (DEFAULT)[address] [place] [address] LIPASEon 05-25-2024 Lipase [Catalytic activity/Vol] 30 U/L Normal 11-82 [facility] Comment on above: Performed By: #### I PB, URICB, MGO, LIPA ####[facility] (DEFAULT)[address] [place] [address] MAGNESIUMon 05-25-2024 Magnesium [Mass/Vol] 2.2 mg/dL Normal 1.6-2.6 [facility] Comment on above: Performed By: #### C HM7, HFP, IPB, MGO, CA ####[facility] (DEFAULT)[address] [place] [address] Magnesium [Mass/Vol] 1.9 mg/dL Normal 1.6-2.6 [facility] Comment on above: Performed By: #### I PB, URICB, MGO, LIPA ####[facility] (DEFAULT)[address] [place] [address] PHOSPHATE, INORGANICon 05-25 Phosphorous 4.1 mg/dL Normal 2.2-4.6 [facility] Comment on above: Performed By: #### C HM7, HFP, IPB, MGO, CA ####[facility] (DEFAULT)[address] [place] [address] Phosphorous 3.4 mg/dL Normal 2.2-4.6 [facility] Comment on above: Performed By: #### I PB, URICB, MGO, LIPA ####[facility] (DEFAULT)[address] [place] [address] PRA CLASS (PRE-TRANSPLANT)on 05-25-2024 AB SPECIFICITY CLASS COMMENT Antibody Specificity testing performed by [employer]. cPRA calculation based on identification of HLA antibody specificities at MFI >2000 and/or presence of CREG antibodies. Normal [facility] Comment on above: Result Comment: Some of the reagents used for testing in the [facility] have yet to be approved by the FDA. Our certification by CLIA to perform high complexity tests allows us to use these reagents in the context of a stringent QCprogram, and obviates the need for FDA approval.Testing performed by the [facility]. [facility] number: [id number]. CLIA number: [id number], Director: Urban Millard, PhD, F([facility]). Performed By: #### P RAPRE ####[facility] (DEFAULT)[address] [place] [address] ANTIBODY SPECIFICITY INTERPRETATION DR52/DRB3*01:[address] [facility] Comment on above: Performed By: #### P RAPRE ####[facility] (DEFAULT)[address] [place] [address] CLASS I SPECIFICITIES Not detected Normal [facility] Comment on above: Performed By: #### P RAPRE ####[facility] (DEFAULT)[address] [place] [address] CLASS II SPECIFICITIES Not detected Normal [facility] Comment on above: Performed By: #### P RAPRE ####[facility] (DEFAULT)[address] [place] [address] cPRA 10 % High 0 [facility] Comment on above: Performed By: #### P RAPRE ####[facility] (DEFAULT)[address] [place] [address] PT,INR,PTTon 05-25-2024 aPTT Coag (Bld) [Time] 64.3 s High 24.0-34.3 [facility] Comment on above: Result Comment: Resu lts inconsistent with previous results Performed By: #### P TPTT, FIB ####[facility] (DEFAULT)[address] [place] [address] INR Coag (PPP) [Relative time] 1.6 {INR} High 0.9-1.1 [facility] Comment on above: Performed By: #### P TPTT, FIB ####[facility] (DEFAULT)[address] [place] [address] PT Coag (PPP) [Time] 19.2 s High 11.9-14.2 [facility] Comment on above: Performed By: #### P TPTT, FIB ####[facility] (DEFAULT)[address] [place] [address] aPTT Coag (Bld) [Time] 32.0 s Normal 24.0-34.3 [facility] Comment on above: Performed By: #### P TPTT, TT, FIB ####[facility] (DEFAULT)[address] [place] [address] INR Coag (PPP) [Relative time] 1.5 {INR} High 0.9-1.1 [facility] Comment on above: Performed By: #### P TPTT, TT, FIB ####[facility]DEFAULT[facility] [place] [address] PT Coag (PPP) [Time] 18.0 s High 11.9-14.2 [facility] Comment on above: Performed By: #### P TPTT, TT, FIB ####[facility] (DEFAULT)[address] [place] [address] SCREEN, VREon 05-25-2024 Vancomycin Resistant Enterococcus Negative Normal Negative [facility] Comment on above: Order Comment: Colle ct with an ESWAB; requires 1 perirectal site. Performed By: #### S CV ####[facility] (DEFAULT)[address] [place] [address] SURG PATH REQUESTon 05-26-[address] [facility] Comment on above: Result Comment: Surg ical Pathology Report Case: [id number] Provider: Dalia Thomas MD Collected: 05/25/2024 03:05 PM[facility] Received: 05/26/2024 07:20 AMPathologist: CHAN ThayerSpecimens: A) - SURG PATH, cowlitz liver B) - SURG PATH, donor gallbladder C) - SURG PATH, donor reprofusion liver bx Performed By: #### S URGP ####[facility] (DEFAULT)[address] [place] [address] Clinical History End-stage liver dise ase. Medical History: Ulcerative colitis. Primary sclerosing cholangitis. Colon cancer. Cirrhosis of liver not due to alcohol. Normal [facility] Comment on above: Performed By: #### S URGP ####[facility] (DEFAULT)[address] [place] [id number] Gross Description Normal [facility] Comment on above: Result Comment: The specimens are received in three properly labeled containers with the patient's name and accession number.A. The specimen is designated cowlitz liver and consists of a 1130 gram, [...] submitted entirely. TE 1Lab Use Only: JobID [id number] for this case was: Matt Sauceda Performed By: #### S URGP ####[facility] (DEFAULT)[address] [place] [address] [facility] Comment on above: Result Comment: A mi croscopic examination was performed.All controls show appropriate reactivity. All immunohistochemistry (IHC), in situ hybridization (MELA), and histochemical tests were developed by and are performed at the [facility] Clinical Laboratory, Histology and IHC Lab, [address] [place] [address], [place] [address]. All Immunofluorescent (IF) tests were developed by and are performed at the [facility] Clinical Laboratory, Renal Division, [address] [place] [address]. All tests reported here, except for PD-L1, have not been cleared by or approved by the [place] Food and Drug Administration (FDA). The laboratory is regulated under CLIA as qualified to perform high-complexity testing. The tests are used for clinical purposes. They should not be regarded as investigational or for research. Performed By: #### S URGP ####[facility] (DEFAULT)[address] [place] [address] [facility] Comment on above: Result Comment: A. [...] 2100 EDT Performed By: #### S URGP ####[facility] (DEFAULT)[address] [place] [address] Professional Interpretation Performed at: Normal [facility] Comment on above: Result Comment: [facility] CLINICAL LABORATORYFor Immediate Release to Patient's MyChart? [address] [place] [address] Performed By: #### S URGP ####[facility] (DEFAULT)[address] [place] [address] 19972 THROMBIN TIMEon 05-25-2024 Thrombin Time 17.3 sec Normal 13.0-20.0 [facility] Comment on above: Performed By: #### P TPTT, TT, FIB ####[facility] (DEFAULT)[address] [place] [address] 97516 TRANSPLANT RECIPIENT HEPATIT IS C BY PCR QUANTon 05-25-2024 Hepatitis C By Pcr, Quant. <12 Normal <12 [facility] Comment on above: Order Comment: This test was performed using a real time PCR assay. The dynamic range for this assay is 12-100,000,000 IU/mL. Performed By: #### T RANSPLANT RECIPIENT HEPATITIS C BY PCR QUANT ####[facility] (DEFAULT)[address] [place] [address] 75573 Hepatitis C By Pcr,(Log) < Normal <1.08 [facility] Comment on above: Order Comment: This test was performed using a real time PCR assay. The dynamic range for this assay is 12-100,000,000 IU/mL. Performed By: #### T RANSPLANT RECIPIENT HEPATITIS C BY PCR QUANT ####[facility] (DEFAULT)[address] [place] [address] 006[address] TRANSPLANT RECIPIENT INFECTI OUS SEROLOGYon 05-25-2024 Hep B Core Ab,Total (IgG+IgM) Negative Normal Negative [facility] Comment on above: Performed By: #### T RANSPLANT RECIPIENT INFECTIOUS SEROLOGY ####[facility] (DEFAULT)[address] [place] [address] 24533 Hep B Surface Ab Negative Normal Negative [facility] Comment on above: Performed By: #### T RANSPLANT RECIPIENT INFECTIOUS SEROLOGY ####[facility] (DEFAULT)[address] [place] [address] Hepatitis B Surface Ag Negative Normal Negative [facility] Comment on above: Performed By: #### T RANSPLANT RECIPIENT INFECTIOUS SEROLOGY ####[facility] (DEFAULT)[address] [place] [address] Hepatitis C Antibody Negative Normal Negative [facility] Comment on above: Performed By: #### T RANSPLANT RECIPIENT INFECTIOUS SEROLOGY ####[facility] (DEFAULT)[address] [place] [address] HIV-1/HIV-2 Ab With p24 Antigen Non-Reactive Normal Non Reactive [facility] Comment on above: Performed By: #### T RANSPLANT RECIPIENT INFECTIOUS SEROLOGY ####[facility] (DEFAULT)[address] [place] [address] 13731 TYPE AND SCREENon 05-25-2024 ABO/RH(D) TYPE Positive Normal [facility] Comment on above: Performed By: #### I [id number], XM ####[facility] (DEFAULT)[address] [place] [address] 93681 Specimen Expiration 05/28/2024 23:[address] [facility] Comment on above: Performed By: #### I [id number], XM ####[facility] (DEFAULT)[address] [place] [address] 40520 URIC ACIDon 05-25-2024 Urate [Mass/Vol] 3.6 mg/dL Normal 3.5-7.0 [facility] Comment on above: Performed By: #### I PB, URICB, MGO, LIPA ####[facility] (DEFAULT)[address] [place] [address] US ABDOMEN LIVER TRANSPLANT DOPPLERon 05-25-2024 US ABDOMEN LIVER TRANSPLANT DOPPLER Normal [facility] VIRTUAL CROSSMATCHon 025 DONOR ID [id number], Normal [facility] Comment on above: Performed By: #### V IRCROM ####[facility] (DEFAULT)[address] [place] [address] 94392 DONOR MRN (DIDMR) [id number] Normal [facility] Comment on above: Performed By: #### V IRCROM ####[facility] (DEFAULT)[address] [place] [address] 97562 VIRTUAL CROSSMATCH Negative Normal [facility] Comment on above: Performed By: #### V IRCROM ####[facility] (DEFAULT)[address] [place] [address] 82861 VIRTUAL XM COMMENT [facility] Comment on above: Result Comment: The VIRTUAL [...] need for FDA approval.Testing performed by the [facility] Clinical Histocompatibility Laboratory. [facility] number: [id number]. CLIA number: [id number], Director: Urban Millard, PhD, F([facility]). Performed By: #### V IRCROM ####[facility] (DEFAULT)[address] [place] [address] 53364 XR CHEST 1 VIEW PORTABLEon 0 05-25-2024 XR CHEST [address] [facility] XR CHEST PA AND LATERAL 2 EWSon 05-25-2024 XR CHEST PA AND LATERAL [address] [facility] FLEXIBLE SIGMOIDOSCOPYon [facility] Patient Name: Jc Dunaway Procedure Date: 05/13/2024 2:36 PM Date of : 1965 Admit Type: Outpatient Age: 58 Room: Travel Cart Gender: Male Note Status: Finalized Attending MD: Jess Gamez MD, [id number] Procedure: Pouchoscopy Attending Participation: I personally performed the entire procedure. Indications: Diarrhea, Rectal bleeding, Rectal pain Providers: Jess Gamez MD, Corie Sellers RN (Nurse), Harvey Nuñez, Hedge Fund Accountant Patient Profile: This is a 58 year [...] by the physician, the nurse and the railroad signal technician in the procedure room at 14:43 [...] (This was examined with second attending, Dr Martni. This was friable with minimal contact bleeding. No other sites or (more content not included)... LAB, [facility] Radiology Study observation (narrative) [facility] SURG PATH REQUESTon 05-14-19 Case Report [facility] Comment on above: Result Comment: Surg ical Pathology Report Case: [id number] Provider: Jess Gamez MD Collected: 05/13/2024 02:59 PMOrdering Location: [facility] Received: 05/13/2024 03:45 PM DepartmentPathologist: Zachary Flanagan, DOSpecimen: SURG PATH, Random colon bx evaluate for IBD and microscopic colitis Performed By: #### S URGP ####[facility] (DEFAULT)[address] [place] [address]04 Clinical History Diagnoses: Ulcerativ e pancolitis with complication [K51.019]. Preop Diagnosis: Evaluate for IBD and microscopic colitis. Medical History: Ulcerative colitis. Primary sclerosing cholangitis. Colon cancer. Cirrhosis of liver not due to alcohol. [facility] Comment on above: Performed By: #### S URGP ####[facility] (DEFAULT)[address] [place] [address] 49733 Gross Description Normal [facility] Comment on above: Result Comment: The specimen is received in one properly labeled container with the patient's name and accession number.A. The specimen is designated random colon bx evaluate for IBD and microscopic colitis and consists of two fragments of swanson-pink soft tissue, up to 0.3 cm in greatest dimension. TE 1Lab Use Only: JobID [id number] for this case was: Yolanda Butler Performed By: #### S URGP ####[facility] (DEFAULT)[address] [place] [address] Microscopic Description A microscopic examination was performed. [facility] Comment on above: Performed By: #### S URGP ####[facility] (DEFAULT)[address] [place] [address] Pathologic Diagnosis [facility] Comment on above: Result Comment: blaise Larson, biopsy:Ileocolonic mucosa with no significant pathologic changeNo significant acute inflammation / colitisNegative for dysplasia at 1241 EDT Performed By: #### S URGP ####[facility] (DEFAULT)[address] [place] [address] Professional Interpretation Performed at: [facility] Comment on above: Result Comment: [facility] CLINICAL LABFor Immediate Release to [facility]'s [facility] [id number] [address] Performed By: #### S URGP ####[facility] (DEFAULT)[address] [place] [address] Surgery Visit Reporton 05-03 Surgery Visit Report Normal [facility] Activated partial thrombopla stin time (aPTT) in platelet poor plasma by coagulation aOrdered By: Babs Marley on 04-28-2024 aPTT Coag (PPP) [Time] 32.7 s 24.1-36.2 [facility] International normalized rat io (INR) calculationOrdered By: Babs Marley on 04-28-2024 INR Coag (Bld) [Relative time] 1.6 {INR} [facility] Partial Thromboplast Timeon 04-28-2024 aPTT Coag (Bld) [Time] 32.7 s Normal 24.1-36.2 [facility] Comment on above: Performed By: #### L 300.3900, L300.4310 ####[facility] [address] [place], [address] Prothrombin Time w/INRon INR Coag (PPP) [Relative time] 1.6 {INR} Normal [facility] Comment on above: Performed By: #### L 300.3900, L300.4310 ####[facility] [address] [place], [address] PT Coag (PPP) [Time] 19.1 s High 11.7-14.9 [facility] Comment on above: Performed By: #### L 300.3900, L300.4310 ####[facility] [address] [place], [address] Prothrombin timeOrdered By: Babs Marley on 04-28-2024 PT Coag (PPP) [Time] 19.1 s High 11.7-14.9 [facility] aPTT Coag (PPP) [Time]Ordere d By: Babs Marley on 04-28-2024 aPTT Coag (Bld) [Time] 32.7 s 24.1-36.2 [facility] AST(SGOT)on 04-27-2024 AST [Catalytic activity/Vol] 139 U/L High <=37 [facility] Comment on above: Performed By: #### L 500.2500, L501.4700, L501.4600, L501.4100, L501.1800, L501.4305, L100.0100, L501.4405 ####[facility] [address] [place], [address] Absolute lymphocyte countOrd ered By: Babs Marley on 04-27-2024 Lymphocytes Auto (Unsp spec) [#/Vol] 1.15 10*3/uL 0.83-4.51 [facility] Absolute neutrophil countOrd ered By: Babs Marley on 04-27-2024 Neutrophils (Bld) [#/Vol] 4.8 10*3/uL 2.0-7.7 [facility] Alanine Aminotransferas (SGP T)on 04-27-2024 ALT [Catalytic activity/Vol] 99 U/L High <=46 [facility] Comment on above: Performed By: #### L 500.2500, L501.4700, L501.4600, L501.4100, L501.1800, L501.4305, L100.0100, L501.4405 ####[facility] [address] [place], [address] Albumin, Serumon 04-27-2024 Albumin [Mass/Vol] 3.9 g/dL Normal 3.5-5.0 [facility] Comment on above: Performed By: #### L 500.2500, L501.4700, L501.4600, L501.4100, L501.1800, L501.4305, L100.0100, L501.4405 ####[facility] [address] [place], [place], [id number] Alkaline Phosphataseon 04-27 ALK PHOS 616 U/L High 40-129 [facility] Comment on above: Performed By: #### L 500.2500, L501.4700, L501.4600, L501.4100, L501.1800, L501.4305, L100.0100, L501.4405 ####[facility] [address] [place], [place], [id number] Automated lymphocyte count a s percentage of total leukocytesOrdered By: Babs Marley on 04-27-2024 Lymphocytes/100 WBC Auto (Unsp spec) 16.7 % Low 19-41 [facility] BUN/creatinine ratioOrdered By: Babs Marley on 04-27-2024 Urea nitrogen/Creatinine [Mass ratio] 14.8 mg/mg 12-19 [facility] Basic Metabolic Profile (BMP )on 04-27-2024 BUN/CRE 14.8 RATIO Normal 12-19 [facility] Comment on above: Performed By: #### L 500.2500, L501.4700, L501.4600, L501.4100, L501.1800, L501.4305, L100.0100, L501.4405 ####[facility] [address] [place], [address] Calcium [Mass/Vol] 9.1 mg/dL Normal 7.6-11.0 [facility] Comment on above: Performed By: #### L 500.2500, L501.4700, L501.4600, L501.4100, L501.1800, L501.4305, L100.0100, L501.4405 ####[facility] [address] [place], [address] CO2 [Moles/Vol] 22.1 mmol/L Normal 22.0-29.0 [facility] Comment on above: Performed By: #### L 500.2500, L501.4700, L501.4600, L501.4100, L501.1800, L501.4305, L100.0100, L501.4405 ####[facility] [address] [place], [address] Creatinine [Mass/Vol] 0.7 mg/dL Low 0.8-1.3 [facility] Comment on above: Performed By: #### L 500.2500, L501.4700, L501.4600, L501.4100, L501.1800, L501.4305, L100.0100, L501.4405 ####[facility] [address] [place], [address] GFR/1.73 sq M.predicted among non-blacks MDRD (S/P/Bld) [Vol rate/Area] 106 mL/min/{1.73_m2} Normal >60 [facility] Comment on above: Result Comment: mL/m in/1.73m2 CKD-EPI Creatinine Equation (2020) Performed By: #### L 500.2500, L501.4700, L501.4600, L501.4100, L501.1800, L501.4305, L100.0100, L501.4405 ####[facility] [address] [place], [address] Glucose [Mass/Vol] 91 mg/dL Normal 70-99 [facility] Comment on above: Performed By: #### L 500.2500, L501.4700, L501.4600, L501.4100, L501.1800, L501.4305, L100.0100, L501.4405 ####[facility] [address] [place], [address] Urea nitrogen [Mass/Vol] 11 mg/dL Normal 4-19 [facility] Comment on above: Performed By: #### L 500.2500, L501.4700, L501.4600, L501.4100, L501.1800, L501.4305, L100.0100, L501.4405 ####[facility] [address] [place], [place], [id number] Basophil percentageOrdered B y: Babs Marley on 04-27-2024 Basophils/100 WBC (Bld) 0.7 % 0-1 [facility] Bilirubin directOrdered By: Babs Marley on 04-27-2024 Bilirubin.direct [Mass/Vol] 3.11 mg/dL High 0.00-0.30 [facility] Bilirubin, Directon 04-27-19 25 Bilirubin.direct [Mass/Vol] 3.11 mg/dL High 0.00-0.30 [facility] Comment on above: Performed By: #### L 500.2500, L501.4700, L501.4600, L501.4100, L501.1800, L501.4305, L100.0100, L501.4405 ####[facility] [address] [place], [address] Bilirubin, totalOrdered By: Babs Marley on 04-27-2024 Bilirubin [Mass/Vol] 3.96 mg/dL High 0.00-1.30 [facility] CBC W/Diff, Automatedon 04-03 Absolute Lymph 1.15 X10 3/uL Normal 0.83-4.51 [facility] Comment on above: Performed By: #### L 500.2500, L501.4700, L501.4600, L501.4100, L501.1800, L501.4305, L100.0100, L501.4405 ####[facility] [address] [place], [address] Absolute Neut 4.8 X10 3/uL Normal 2.0-7.7 [facility] Comment on above: Performed By: #### L 500.2500, L501.4700, L501.4600, L501.4100, L501.1800, L501.4305, L100.0100, L501.4405 ####[facility] [address] [place], [address] Basophils/100 WBC (Bld) 0.7 % Normal 0-1 [facility] Comment on above: Performed By: #### L 500.2500, L501.4700, L501.4600, L501.4100, L501.1800, L501.4305, L100.0100, L501.4405 ####[facility] [address] [place], [address] Eosinophils/100 WBC (Bld) 2.8 % Normal 0-5 [facility] Comment on above: Performed By: #### L 500.2500, L501.4700, L501.4600, L501.4100, L501.1800, L501.4305, L100.0100, L501.4405 ####[facility] [address] [place], [address] Erythrocyte distribution width (RBC) [Ratio] 15.5 % High 11.6-14.6 [facility] Comment on above: Performed By: #### L 500.2500, L501.4700, L501.4600, L501.4100, L501.1800, L501.4305, L100.0100, L501.4405 ####[facility] [address] [place], [address] Hematocrit (Bld) [Volume fraction] 38.4 % Low 40-54 [facility] Comment on above: Performed By: #### L 500.2500, L501.4700, L501.4600, L501.4100, L501.1800, L501.4305, L100.0100, L501.4405 ####[facility] [address] [place], [address] Hemoglobin (Bld) [Mass/Vol] 12.8 g/dL Low 13.0-16.5 [facility] Comment on above: Performed By: #### L 500.2500, L501.4700, L501.4600, L501.4100, L501.1800, L501.4305, L100.0100, L501.4405 ####[facility] [address] [place], [address] IG% 0.400 Normal 0.0-0.9 [facility] Comment on above: Result Comment: IG% - Immature Granulocytes (promyelocytes, myelocytes andmetamyelocytes) > 1% indicates that a LEFT SHIFT is Present. Performed By: #### L 500.2500, L501.4700, L501.4600, L501.4100, L501.1800, L501.4305, L100.0100, L501.4405 ####[facility] [address] [place], [address] Lymphocytes/100 WBC (Bld) 16.7 % Low 19-41 [facility] Comment on above: Performed By: #### L 500.2500, L501.4700, L501.4600, L501.4100, L501.1800, L501.4305, L100.0100, L501.4405 ####[facility] [address] [place], [address] MCH (RBC) [Entitic mass] 32.5 pg High 27.0-32.0 [facility] Comment on above: Performed By: #### L 500.2500, L501.4700, L501.4600, L501.4100, L501.1800, L501.4305, L100.0100, L501.4405 ####[facility] [address] [place], [address] MCHC (RBC) [Mass/Vol] 33.3 g/dL Normal 32-36 [facility] Comment on above: Performed By: #### L 500.2500, L501.4700, L501.4600, L501.4100, L501.1800, L501.4305, L100.0100, L501.4405 ####[facility] [address] [place], [address] MCV (RBC) [Entitic vol] 97.5 fL High 80-94 [facility] Comment on above: Performed By: #### L 500.2500, L501.4700, L501.4600, L501.4100, L501.1800, L501.4305, L100.0100, L501.4405 ####[facility] [address] [place], [address] Monocytes/100 WBC (Bld) 9.9 % Normal 0-10 [facility] Comment on above: Performed By: #### L 500.2500, L501.4700, L501.4600, L501.4100, L501.1800, L501.4305, L100.0100, L501.4405 ####[facility] [address] [place], [address] Neutrophils/100 WBC (Bld) 69.5 % Normal 47-70 [facility] Comment on above: Performed By: #### L 500.2500, L501.4700, L501.4600, L501.4100, L501.1800, L501.4305, L100.0100, L501.4405 ####[facility] [address] [place], [address] Nucleated RBC (Bld) [#/Vol] 0 10*3/uL Normal 0-5 [facility] Comment on above: Performed By: #### L 500.2500, L501.4700, L501.4600, L501.4100, L501.1800, L501.4305, L100.0100, L501.4405 ####[facility] [address] [place], [address] Platelet mean volume (Bld) [Entitic vol] 11.9 fL Normal 6.2-12.0 [facility] Comment on above: Performed By: #### L 500.2500, L501.4700, L501.4600, L501.4100, L501.1800, L501.4305, L100.0100, L501.4405 ####[facility] [address] [place], [address] Platelets (Bld) [#/Vol] 253 10*3/uL Normal 150-450 [facility] Comment on above: Performed By: #### L 500.2500, L501.4700, L501.4600, L501.4100, L501.1800, L501.4305, L100.0100, L501.4405 ####[facility] [address] [place], [place], [address](011) RBC (Bld) [#/Vol] 3.94 10*6/uL Low 4.6-6.2 [facility] Comment on above: Performed By: #### L 500.2500, L501.4700, L501.4600, L501.4100, L501.1800, L501.4305, L100.0100, L501.4405 ####[facility] [address] [place], [place], [id number](750) RDW SD 55.9 fl High 35.1-43.9 [facility] Comment on above: Performed By: #### L 500.2500, L501.4700, L501.4600, L501.4100, L501.1800, L501.4305, L100.0100, L501.4405 ####[facility] [address] [place], [address] WBC (Bld) [#/Vol] 6.9 10*3/uL Normal 4.4-11.0 [facility] Comment on above: Performed By: #### L 500.2500, L501.4700, L501.4600, L501.4100, L501.1800, L501.4305, L100.0100, L501.4405 ####[facility] [address] [place], [place], [id number] Carbon dioxide measurementOr dered By: Babs Marley on 04-27-2024 CO2 [Moles/Vol] 22.1 mmol/L 22.0-29.0 [facility] Chloride measurementOrdered By: Babs Marley on 04-27-2024 Chloride [Moles/Vol] 103 mmol/L 96-108 [facility] Creatinine [Moles/Vol]Ordere d By: Babs Marley on 04-27-2024 Creatinine [Mass/Vol] 0.7 mg/dL Low 0.8-1.3 [facility] Eosinophil percentageOrdered By: Babs Marley on 04-27-2024 Eosinophils/100 WBC (Bld) 2.8 % 0-5 [facility] Erythrocyte distribution wid th ratioOrdered By: Babs Marley on 04-27-2024 Erythrocyte distribution width (RBC) [Ratio] 15.5 % High 11.6-14.6 [facility] Erythrocyte distribution wid th standard deviationOrdered By: Babs Marley on 04-27-2024 Erythrocyte distribution width (RBC) [Entitic vol] 55.9 fL High 35.1-43.9 [facility] Erythrocyte distribution width (RBC) [Ratio] 55.9 fl High 35.1-43.9 [facility] GFR/1.73 sq M.predicted jesus g non-blacks MDRD (S/P/Bld) [Vol rate/Area]Ordered By: Babs Marley on 04-27-2024 Estimated GFR (MDRD) Non-Af Amer 106 >60 [facility] Comment on above: mL/min/1.73m2 CKD-EP I Creatinine Equation (2020) Glomerular filtration rate ( GFR) estimation/1.73 sq m using serum, plasma, or whole bOrdered By: Babs Marley on 04-27-2024 GFR/1.73 sq M.predicted among non-blacks MDRD (S/P/Bld) [Vol rate/Area] 106 mL/min/{1.73_m2} >60 [facility] Comment on above: mL/min/1.73m2 CKD-EP I Creatinine Equation (2020) Hematocrit Auto (Bld) [Volum e fraction]Ordered By: Babs Marley on 04-27-2024 Hematocrit (Bld) [Volume fraction] 38.4 % Low 40-54 [facility] Hemoglobin measurementOrdere d By: Babs Marley on 04-27-2024 Hemoglobin (Bld) [Mass/Vol] 12.8 g/dL Low 13.0-16.5 [facility] Immature granulocytes/100 WB C Auto (Bld)Ordered By: Babs Marley on 04-27-2024 Immature granulocytes/100 WBC (Bld) 0.400 % 0.0-0.9 [facility] Comment on above: IG% - Immature Granu locytes (promyelocytes, myelocytes and metamyelocytes) > 1% indicates that a LEFT SHIFT is Present. Laboratory - Chemistry and C hemistry - challengeOrdered By: Babs Marley on 04-27-2024 AST [Catalytic activity/Vol] 139 U/L High <38 [facility] Lymphocytes Auto (Unsp spec) [#/Vol]Ordered By: Babs Marley on 04-27-2024 Lymphocytes (Bld) [#/Vol] 1.15 10*3/uL 0.83-4.51 [facility] Lymphocytes/100 WBC Auto (Un sp spec)Ordered By: Babs Marley on 04-27-2024 Lymphocytes/100 WBC (Bld) 16.7 % Low 19-41 [facility] MCV (mean corpuscular volume ) determinationOrdered By: Babs Marley on 04-27-2024 MCV (RBC) [Entitic vol] 97.5 fL High 80-94 [facility] Mean corpuscular hemoglobin (MCH) determinationOrdered By: Babs Marley on 04-27-2024 MCH (RBC) [Entitic mass] 32.5 pg High 27.0-32.0 [facility] Mean corpuscular hemoglobin concentration (MCHC) determinationOrdered By: Babs Marley on 04-27-2024 MCHC (RBC) [Mass/Vol] 33.3 g/dL 32-36 [facility] Mean platelet volume determi nationOrdered By: Babs Marley on 04-27-2024 Platelet mean volume (Bld) [Entitic vol] 11.9 fL 6.2-12.0 [facility] Monocyte percentageOrdered B y: Babs Marley on 04-27-2024 Monocytes/100 WBC (Bld) 9.9 % 0-10 [facility] Neutrophil percentageOrdered By: Babs Marley on 04-27-2024 Neutrophils/100 WBC (Bld) 69.5 % 47-70 [facility] Nucleated red blood cell per centageOrdered By: Babs Marley on 04-27-2024 Nucleated RBC/100 WBC (Bld) [Ratio] 0 % 0-5 [facility] Platelet countOrdered By: Yissel Marley on 04-27-2024 Platelets (Bld) [#/Vol] 253 10*3/uL 150-450 [facility] RBC Auto (Bld) [#/Vol]Ordere d By: Babs Marley on 04-27-2024 RBC (Bld) [#/Vol] 3.94 10*6/uL Low 4.6-6.2 [facility] Serum glucose measurement (m ass/volume)Ordered By: Babs Marley on 04-27-2024 Glucose [Mass/Vol] 91 mg/dL 70-99 [facility] Serum or plasma alanine craig otransferase (ALT) measurementOrdered By: Babs Marley on 04-27-2024 ALT [Catalytic activity/Vol] 99 U/L High <47 [facility] Serum or plasma albumin megha urement (mass/volume)Ordered By: Babs Marley on 04-27-2024 Albumin [Mass/Vol] 3.9 g/dL 3.5-5.0 [facility] Serum or plasma alkaline sal sphatase measurementOrdered By: Babs Marley on 04-27-2024 ALP [Catalytic activity/Vol] 616 U/L High 40-129 [facility] Serum or plasma anion gap de termination (moles/volume)Ordered By: Babs Marley on 04-27-2024 Anion gap [Moles/Vol] 12 mmol/L 5-15 [facility] Serum or plasma calcium megha urement (mass/volume)Ordered By: Babs Marley on 04-27-2024 Calcium [Mass/Vol] 9.1 mg/dL 7.6-11.0 [facility] Serum or plasma creatinine m easurement (moles/volume)Ordered By: Babs Marley on 04-27-2024 Creatinine [Moles/Vol] 0.7 mg/dL Low 0.8-1.3 [facility] Serum or plasma potassium me asurementOrdered By: Babs Marley on 04-27-2024 Potassium [Moles/Vol] 4.0 mmol/L 3.3-5.1 [facility] Serum or plasma sodium measu rement (moles/volume)Ordered By: Babs Marley on 04-27-2024 Sodium [Moles/Vol] 137 mmol/L 133-145 [facility] Serum or plasma urea nitroge n measurement (mass/volume)Ordered By: Babs Marley on 04-27-2024 Urea nitrogen [Mass/Vol] 11 mg/dL 4-19 [facility] Total Bilirubinon 04-27-2024 Bilirubin [Mass/Vol] 3.96 mg/dL High 0.00-1.30 [facility] Comment on above: Performed By: #### L 500.2500, L501.4700, L501.4600, L501.4100, L501.1800, L501.4305, L100.0100, L501.4405 ####[facility] [id number] [place], [address] White blood cell (WBC) count Ordered By: Babs Marley on 04-27-2024 WBC (Bld) [#/Vol] 6.9 10*3/uL 4.4-11.0 [facility] INVASIVE CARDIOVASCULAR PROC EDUREon 04-15-2024 INVASIVE CARDIOVASCULAR PROCEDURE Normal [facility] CBC,PLATELETSon 04-14-2024 Erythrocyte distribution width (RBC) [Ratio] 15.4 % High 10.9 - 14.3 % [facility] Hematocrit (Bld) [Volume fraction] 36.5 % Low 39.6 - 48.8 % [facility] Hemoglobin (Bld) [Mass/Vol] 12.4 g/dL Low 13.4 - 16.8 g/dL [facility] Interpretation and review of laboratory results Abnormal [facility] MCH (RBC) [Entitic mass] 32.4 pg 26.1 - 33.3 pg [facility] MCHC (RBC) [Mass/Vol] 34 g/dL 31.9 - 36.5 g/dL [facility] MCV (RBC) [Entitic vol] 95.3 fL High 79.0 - 94.5 fL [facility] Platelet mean volume (Bld) [Entitic vol] 11.3 fL 8.7 - 12.3 fL [facility] Platelets (Bld) [#/Vol] 320 10*3/uL 146 - 337 K/uL [facility] RBC (Bld) [#/Vol] 3.83 10*6/uL Low [facility] WBC (Bld) [#/Vol] 6.2 10*3/uL 3.73 - 10. 10 K/uL [facility] Hematocrit (Bld) [Volume fraction] 36.5 % Low 39.6-48.8 [facility] Comment on above: Performed By: #### H EMO ####[facility] (DEFAULT)[address] [place] [address] Hemoglobin (Bld) [Mass/Vol] 12.4 g/dL Low 13.4-16.8 [facility] Comment on above: Performed By: #### H EMO ####[facility] (DEFAULT)[address] [place] [address] MCV (RBC) [Entitic vol] 95.3 fL High 79.0-94.5 [facility] Comment on above: Performed By: #### H EMOGC ####[facility] (DEFAULT)[address] [place] [address] Mean Cell Hgb 32.4 pg Normal 26.1-33.3 [facility] Comment on above: Performed By: #### H EMO ####[facility] (DEFAULT)[address] [place] [address] Mean Cell Hgb Conc 34.0 g/dL Normal 31.9-36.5 [facility] Comment on above: Performed By: #### H EMOGC ####[facility] (DEFAULT)[address] [place] [address] Platelet mean volume (Bld) [Entitic vol] 11.3 fL Normal 8.7-12.3 [facility] Comment on above: Performed By: #### [facility] ####[facility] (DEFAULT)[address] [place] [address] Platelets (Bld) [#/Vol] 320 10*3/uL Normal 146-337 [facility] Comment on above: Performed By: #### [facility] ####[facility] (DEFAULT)[address] [place] [address] RBC (Bld) [#/Vol] 3.83 10*6/uL Low 4.38-5.83 [facility] Comment on above: Performed By: #### [facility] ####[facility] (DEFAULT)[address] [place] [address] RBC Distribution 15.4 % High 10.9-14.3 [facility] Comment on above: Performed By: #### [facility] ####[facility] (DEFAULT)[address] [place] [id number] WBC (Bld) [#/Vol] 6.20 10*3/uL Normal 3.73-10.10 [facility] Comment on above: Performed By: #### [facility] ####[facility] (DEFAULT)[address] [place] [address] CHEM 6 (LYTES, BUN CREA)on 0 04-14-2024 Anion gap [Moles/Vol] 11 mmol/L 7 - 17 mmol/L [facility] Chloride [Moles/Vol] 104 mmol/L 98 - 10 8 mmol/L [facility] CO2 [Moles/Vol] 23 mmol/L 21 - 31 mmol/L [facility] Creatinine [Mass/Vol] 0.68 mg/dL Low 0.70 - 1.30 mg/dL [facility] eGFR, CKD-EPI, Male - PINF [facility] Comment on above: Reported eGFR is bas ed on the CKD-EPI 2020 equation using creatinine, age, and sex. Interpretation and review of laboratory results Abnormal [facility] Potassium [Moles/Vol] 4.3 mmol/L 3.5 - 5.0 mmol/L [facility] Sodium [Moles/Vol] 134 mmol/L Low 135 - 145 mmol/L [facility] Urea nitrogen [Mass/Vol] 15 mg/dL 7 - 25 mg/dL [facility] Urea nitrogen/Creatinine [Mass ratio] 22 mg/mg [facility] Anion gap [Moles/Vol] 11 mmol/L Normal 7-17 [facility] Comment on above: Performed By: #### C HM6 ####[facility] (DEFAULT)[address] [place] [address] Chloride [Moles/Vol] 104 mmol/L Normal 98-108 [facility] Comment on above: Performed By: #### C HM6 ####[facility] (DEFAULT)[address] [place] [address] CO2 [Moles/Vol] 23 mmol/L Normal 21-31 [facility] Comment on above: Performed By: #### C HM6 ####[facility] (DEFAULT)[address] [place] [address] Creatinine [Mass/Vol] 0.68 mg/dL Low 0.70-1.30 [facility] Comment on above: Performed By: #### C HM6 ####[facility] (DEFAULT)[address] [place] [address] eGFR, CKD-EPI, Male > Normal >=60 [facility] Comment on above: Result Comment: Repo rted eGFR is based on the CKD-EPI 2020 equation using creatinine, age, and sex. Performed By: #### C HM6 ####[facility] (DEFAULT)[address] [place] [address] Potassium [Moles/Vol] 4.3 mmol/L Normal 3.5-5.0 [facility] Comment on above: Performed By: #### C HM6 ####[facility] (DEFAULT)[address] [place] [address] Sodium [Moles/Vol] 134 mmol/L Low 135-145 [facility] Comment on above: Performed By: #### C HM6 ####[facility] (DEFAULT)[address] [place] [address] Urea nitrogen [Mass/Vol] 15 mg/dL Normal 7-25 [facility] Comment on above: Performed By: #### C HM6 ####[facility] (DEFAULT)[address] [place] [address] Urea nitrogen/Creatinine [Mass ratio] 22 mg/mg Normal [facility] Comment on above: Performed By: #### C HM6 ####[facility] (DEFAULT)[address] [place] [address] Cardiac catheterization stud yon 04-14-2024 [facility] Radiology Study observation (narrative) [facility] PROTIME-INRon 04-14-2024 INR Coag (Bld) [Relative time] 1.5 {INR} High 0.9 - 1.1 [facility] Interpretation and review of laboratory results Abnormal [facility] PT Coag (PPP) [Time] 18.2 s High [facility] INR Coag (PPP) [Relative time] 1.5 {INR} High 0.9-1.1 [facility] Comment on above: Performed By: #### P TI ####[facility] (DEFAULT)[address] [place] [address] PT Coag (PPP) [Time] 18.2 s High 11.9-14.2 [facility] Comment on above: Performed By: #### P TI ####[facility] (DEFAULT)[address] [place] [address] Gastroenterology Visit Repor ton 04-11-2024 Gastroenterology Visit Report Normal [facility] ARTERIAL BLOOD GASon 03-24- 025 Base excess Calc (Bld) [Moles/Vol] -1.8000 mmol/L -3.0 - 3.0 mmol/L [facility] CO2 (Bld) [Partial pressure] 36 mm[Hg] [facility] HCO3 (Bld) [Moles/Vol] 23 mmol/L 22 - 28 mmol/L [facility] Inhaled oxygen concentration 21 % [facility] Interpretation and review of laboratory results Abnormal [facility] Oxygen (Bld) [Partial pressure] 95 mm[Hg] [facility] Oxygen saturation in Blood 99 % High 94 - 98 % [facility] PF Ratio 452 [facility] pH (Bld) 7.41 [pH] 7.35 - 7.45 [facility] Specimen source Nom (Unsp spec) Arterial [facility] Base Excess -1.8 mmol/L Normal -3.0-3.0 [facility] Comment on above: Performed By: #### G AS5 ####[facility] (DEFAULT)[address] [place] [address] FIO2 21 % Normal [facility] Comment on above: Performed By: #### G AS5 ####[facility] (DEFAULT)[address] [place] [address] HCO3 (Bld) [Moles/Vol] 23 mmol/L Normal 22-28 [facility] Comment on above: Performed By: #### G AS5 ####[facility] (DEFAULT)[address] [place] [address] Oxygen saturation in Blood 99 % High 94-98 [facility] Comment on above: Performed By: #### G AS5 ####[facility] (DEFAULT)[address] [place] [address] pCO2 36 mm Hg Normal 32-48 [facility] Comment on above: Performed By: #### G AS5 ####[facility] (DEFAULT)[address] [place] [address] PF Ratio [address] [facility] Comment on above: Performed By: #### G AS5 ####[facility] (DEFAULT)[address] [place] [address] pH, Arterial 7.41 Normal 7.35-7.45 [facility] Comment on above: Performed By: #### G AS5 ####[facility] (DEFAULT)[address] [place] [address] pO2 95 mm Hg Normal 83-108 [facility] Comment on above: Performed By: #### G AS5 ####[facility] (DEFAULT)[address] [place] [address] Specimen type Nom (Spec) Arterial Normal [facility] Comment on above: Performed By: #### G AS5 ####[facility] (DEFAULT)[address] [place] [address], [place] [address] Cardiac echo study Procedure Ordered By: Manoj Forrest on 03-24-2024 3D EF 57 % [facility] Work Phone: Ao ASC index 1.92 cm/m2 [facility] Work Phone: Ao peak radha 1.00 m/s [facility] Work Phone: Ao SOV index 2.19 cm/m2 [facility] Work Phone: Ao STJ index 1.92 cm/m2 [facility] Work Phone: Ao VTI 22.40 cm [facility] Work Phone: Ascending aorta 2.[facility]: AV LVOT peak gradient 2 mmHg [facility] Work Phone: AV mean gradient 2 mmHg [facility] Work Phone: AV peak gradient 4 mmHG [facility] Work Phone: AV valve area 2.03 cm2 [facility] Work Phone: AV Velocity Ratio 0.63 [facility] Work Phone: DEBRA (continuity Vmax) 1.98 cm2 [facility] Work Phone: DEBRA (continuity VTI) 2.03 cm2 [facility] Work Phone: DEBRA index (continuity Vmax) 1.31 m/s [facility] Work Phone: DEBRA index (continuity VTI) 1.35 cm2/m2 [facility] Work Phone: Avg e' pk radha 0.10 m/s [facility] Work Phone: Avg E/e' ratio 3.71 [facility] Work Phone: Body surface area Derived from formula 1.51 m2 [facility] Work Phone: DI (Vmax) 0.63 [facility] Work Phone: DI (VTI) 0.65 m/2 [facility] Work Phone: E wave decelartion time 524.00 msec [facility] Work Phone: e' lateral pk radha 0.1070 m/s [facility] Work Phone: e' lateral pk radha 0.11 m/s [facility] Work Phone: e' septal pk radha 0.0980 m/s [facility] Work Phone: e' septal pk radah 0.10 m/s [facility] Work Phone: E/A ratio 1.09 [facility] Work Phone: E/e' lateral [facility].55 [facility] Work Phone: E/e' septal [facility] 3.88 [facility] Work [facility]: EST RAP 3.00 mmHg [facility] Work Phone: EST RVSP 16 mmHg [facility] Work Phone: FS 30 % [facility] Work Phone: IVC ostium 0.96 cm [facility] Work Phone: IVS 0.90 cm [facility] Work Phone: LA AREA 2CH 13.61 cm2 [facility] Work Phone: LA area 4CH 12.16 cm2 [facility] Work Phone: LA ESV BP (MOD) 32 mL [facility] Work Phone: LA ESV BP (MOD) index 21 mL/m2 [facility] Work Phone: LA ESV SP 2CH (MOD) 34 mL [facility] Work Phone: LA ESV SP 4CH (MOD) 28 mL [facility] Work Phone: Long Strain -20.2 % [facility] Work Phone: LV EDV 3D 68 mL [facility] Work Phone: LV ESV 3D 29 mL [facility] Work Phone: LV mass 123.30 g [facility] Work Phone: LV Mass Index 81.7 g/m2 [facility] Work Phone: LV RWT 0.42 [facility] Work Phone: LVIDD 4.30 cm [facility] Work Phone: LVIDS 3.00 cm [facility] Work Phone: LVOT area 3.14 cm2 [facility] Work Phone: LVOT diameter 2.00 cm [facility] Work Phone: LVOT peak radha 0.63 m/s [facility] Work Phone: LVOT peak VTI 14.50 cm [facility] Work Phone: LVOT stroke volume 46 cm3 [facility] Work Phone: LVOT stroke volume index 30.15 ml/m2 [facility] Work Phone: Mr max radha 4.26 m/s [facility] Work Phone: MV pk A radha 0.35 m/s [facility] Work Phone: MV pk E radha 0.38 m/s [facility] Work Phone: MV stenosis pressure 1/2 time 153.00 ms [facility] Work Phone: MV valve area p 1/2 method 1.44 cm2 [facility] Work Phone: OSU AV VTI RATIO PRE STRESS 0.65 [facility] Work Phone: OSU ECHO LV EDV 3D INDEX 45.03 mL/m2 [facility] Work Phone: OSU ECHO LV ESV 3D INDEX 19.21 mL/m2 [facility] Work Phone: OSU ECHO MR PEAK GRADIENT 72.59 mmHg [facility] Work Phone: OSU RVOT VTI RATIO 0.89 [facility] Work Phone: PV mean gradient 1 mmHg [facility] Work Phone: PV peak gradient 2 mmHg [facility] Work Phone: PV PK RADHA 0.76 m/s [facility] Work Phone: PV VTI 14.60 cm [facility] Work Phone: PW 0.90 cm [facility] Work Phone: RA vol index 4CH (MOD) 13.25 mL/m2 [facility] Work Phone: Right atrium volume 4 chamber method of disks 20 mL [facility] Work Phone: RV Area diastolic 12.92 cm2 [facility] Work Phone: RV Area systolic 7.98 cm2 [facility] Work Phone: RV basal diam 2.72 cm [facility] Work Phone: RV Fractional area change 38.2 % [facility] Work Phone: RV Free Wall Strain -27.3 % [facility] Work Phone: RV long diam 6.45 cm [facility] Work Phone: RV Long Strain -23.1 % [facility] Work Phone: RV mid diam 2.35 cm [facility] Work Phone: RV S' 10.10 cm/s [facility] Work Phone: RVOT peak gradient 1 mmHg [facility] Work Phone: RVOT peak radha 0.53 m/s [facility] Work Phone: RVOT peak VTI 13.00 cm [facility] Work Phone: Sinus 3.30 cm [facility] Work Phone: STJ 2.90 cm [facility] Work Phone: Stroke Volume 46 cm/mL [facility] Work Phone: Stroke volume index 30 [facility] Work Phone: TAPSE 1.83 cm [facility] Work Phone: TR pk grad 13 mmHg [facility] Work Phone: TR pk radha 1.77 m/s [facility] Work Phone: [facility] Work Phone: Cardiac echo study Procedure on [...] evaluation of liver transplant. Imaging system used: [employer]. Indications Indications for study: pre-op. [facility] Radiology Study observation (narrative) [facility] ECHOCARDIOGRAM PHARMACOLOGIC AL STRESS TESTon 03-24-2024 ECHOCARDIOGRAM PHARMACOLOGICAL STRESS TEST Normal [facility] ABO/RH(D) TYPINGon 5 ABO/RH(D) TYPE Positive [facility] ABO/RH(D) TYPE Positive Normal [facility] Comment on above: Performed By: #### A SIMON ####[facility] (DEFAULT)[address] [place] [address] AFP TUMOR MARKERon 5 AFP Tumor Marker 4.0 ng/mL Normal <8.1 [facility] Comment on above: Result Comment: This test was performed on the [employer] Immunoassay platform by [employer] which is a two-site sandwich chemiluminescent immunoassay. It is important to note that assays using different manufacturers and/or methods may not be comparable. Performed By: #### A FPTMR ####[facility] (DEFAULT)[address] [place] [address] ALBUMINon 03-15-2024 Albumin [Mass/Vol] 3.8 g/dL 3.5 - 5.0 g/dL [facility] Albumin [Mass/Vol] 3.8 g/dL Normal 3.5-5.0 [facility] Comment on above: Performed By: #### E NZ3, ALB, CHM7, CA, BILI ####[facility] (DEFAULT)[address] [place] [address] ALCOHOL (ETHANOL),BLOODon Ethanol Ql (Bld) mg/dL NINF - 10 mg/dL [facility] Interpretation and review of laboratory results Normal [facility] Alcohol, Serum <10 Normal <10 [facility] Comment on above: Performed By: #### A LCOSU ####[facility] [facility] (DEFAULT)[address] [place] [address] ALP ALT Sugar 03-15-2024 ALP [Catalytic activity/Vol] 390 U/L High 32 - 126 U/L [facility] ALT [Catalytic activity/Vol] 77 U/L High 10 - 52 U/L [facility] AST [Catalytic activity/Vol] 115 U/L High 10 - 39 U/L [facility] ALP [Catalytic activity/Vol] 390 U/L High 32-126 [facility] Comment on above: Performed By: #### E NZ3, ALB, CHM7, CA, BILI ####[facility] (DEFAULT)[address] [place] [address] ALT [Catalytic activity/Vol] 77 U/L High 10-52 [facility] Comment on above: Performed By: #### E NZ3, ALB, CHM7, CA, BILI ####[facility] (DEFAULT)[address] [place] [address] AST [Catalytic activity/Vol] 115 U/L High 10-39 [facility] Comment on above: Performed By: #### E NZ3, ALB, CHM7, CA, BILI ####[facility] (DEFAULT)[address] [place] [address] BILIRUBIN, TOTAL AND DIRECTo n 03-15-2024 Bilirubin [Mass/Vol] 4.9 mg/dL High NINF - 1.5 mg/dL [facility] Bilirubin.direct [Mass/Vol] 2.9 mg/dL High NINF - 0.3 mg/dL [facility] Bilirubin [Mass/Vol] 4.9 mg/dL High <1.5 [facility] Comment on above: Performed By: #### E NZ3, ALB, CHM7, CA, BILI ####[facility] (DEFAULT)[address] [place] [address] Bilirubin.indirect [Mass/Vol] 2.9 mg/dL High <0.3 [facility] Comment on above: Performed By: #### E NZ3, ALB, CHM7, CA, BILI ####[facility] (DEFAULT)[address] [place] [address] CA 19-9Ordered By: Colton martinez on 03-15-2024 Cancer Ag 19-9 Qn U/mL NINF - 37. 00 U/mL [facility] Comment on above: This test was perfor med on the Right90 Immunoassay platform which is a 2-step sandwich chemiluminescent immunoassay. It is important to note that assays using different manufacturers and/or methods may not be comparable. Interpretation and review of laboratory results Normal [facility] CA 19-9on 03-15-2024 CA 19-9 <15.00 Normal <=37.00 [facility] Comment on above: Result Comment: This test was performed on the [employer] Immunoassay platform which is a 2-step sandwich chemiluminescent immunoassay. It is important to note that assays using different manufacturers and/or methods may not be comparable. Performed By: #### E PSA, CA199 ####[facility] (DEFAULT)[address] [place] [address] CALCIUMon 03-15-2024 Calcium [Mass/Vol] 9.2 mg/dL 8.6 - 10. 5 mg/dL [facility] Calcium [Mass/Vol] 9.2 mg/dL Normal 8.6-10.5 [facility] Comment on above: Performed By: #### E NZ3, ALB, CHM7, CA, BILI ####[facility] (DEFAULT)[address] [place] [address] CARBOXY THC, URINE, CONFIRMA TIONon 03-15-2024 [id number] a-THC Confirmation <5.0 Normal <5.0 [facility] Comment on above: Order Comment: This Gas Chromatography Mass Spectrometry (GC/MS) test was developed and its performance characteristics determined by the Toxicology Laboratory at [facility], it has not been cleared or approved by the FDA. The laboratory is regulated under CLIA as qualified to perform high complexity testing. This test is used for clinical purposes and should not be regarded as investigational or for research. Performed By: #### U PMSC, THCCMS ####[facility] (DEFAULT)[address] [place] [address] Cannabinoids Interpretation Not detected Normal None Detected [facility] Comment on above: Order Comment: This Gas Chromatography Mass Spectrometry (GC/MS) test was developed and its performance characteristics determined by the Toxicology Laboratory at [facility], it has not been cleared or approved by the FDA. The laboratory is regulated under CLIA as qualified to perform high complexity testing. This test is used for clinical purposes and should not be regarded as investigational or for research. Performed By: #### U PMSC, THCCMS ####[facility] (DEFAULT)[address] [place] [address] CBC AND ELECTRONIC DIFFon Basophils (Bld) [#/Vol] 0.04 10*3/uL 0.00 - 0.09 K/uL [facility] Basophils/100 WBC (Bld) 0.7 % [facility] Differential cell count method Nom (Bld) Electronic Differential [facility] Eosinophils (Bld) [#/Vol] K/uL 0.00 - 0.48 K/uL [facility] Eosinophils/100 WBC (Bld) 0.0 % [facility] Erythrocyte distribution width (RBC) [Ratio] 15.5 % High 10.9 - 14.3 % [facility] Hematocrit (Bld) [Volume fraction] 38.8 % Low 39.6 - 48.8 % [facility] Hemoglobin (Bld) [Mass/Vol] 12.6 g/dL Low 13.4 - 16.8 g/dL [facility] Immature granulocytes (Bld) [#/Vol] K/uL NINF - 0.07 K/uL [facility] Immature granulocytes/100 WBC (Bld) 0.5 % [facility] Interpretation and review of laboratory results Abnormal [facility] Lymphocytes (Bld) [#/Vol] 0.90 10*3/uL 0.83 - 3.57 K/uL [facility] Lymphocytes/100 WBC (Bld) 14.7 % [facility] MCH (RBC) [Entitic mass] 31.7 pg 26.1 - 33.3 pg [facility] MCHC (RBC) [Mass/Vol] 32.5 g/dL 31.9 - 36.5 g/dL [facility] MCV (RBC) [Entitic vol] 97.7 fL High 79.0 - 94.5 fL [facility] Monocytes (Bld) [#/Vol] 0.55 10*3/uL 0.24 - 0.93 K/uL [facility] Monocytes/100 WBC (Bld) 9.0 % [facility] Neutrophils (Bld) [#/Vol] 4.60 10*3/uL 1.57 - 6.19 K/uL [facility] Nucleated RBC/100 WBC (Bld) [Ratio] 0.0 % NINF [facility] Platelet mean volume (Bld) [Entitic vol] 12.1 fL 8.7 - 12.3 fL [facility] Platelets (Bld) [#/Vol] 281 10*3/uL 146 - 337 K/uL [facility] RBC (Bld) [#/Vol] 3.97 10*6/uL Low [facility] Segmented neutrophils/100 WBC (Bld) 75.1 % [facility] WBC (Bld) [#/Vol] 6.12 10*3/uL 3.73 - 10. 10 K/uL [facility] Abs Eos Auto < Normal 0.00-0.48 [facility] Comment on above: Performed By: #### L AB980 ####[facility] (DEFAULT)[address] [place] [address] Basophils (Bld) [#/Vol] 0.04 10*3/uL Normal 0.00-0.09 [facility] Comment on above: Performed By: #### L AB980 ####[facility] (DEFAULT)[address] [place] [address] Basophils/100 WBC (Bld) 0.7 % Normal [facility] Comment on above: Performed By: #### L AB980 ####[facility] (DEFAULT)[address] [place] [address] DIFF STATUS Electronic Differential Normal [facility] Comment on above: Performed By: #### L AB980 ####[facility] (DEFAULT)[address] [place] [address] Eosinophils/100 WBC (Bld) 0.0 % Normal [facility] Comment on above: Performed By: #### L AB980 ####[facility] (DEFAULT)[address] [place] [address] Hematocrit (Bld) [Volume fraction] 38.8 % Low 39.6-48.8 [facility] Comment on above: Performed By: #### L AB980 ####[facility] (DEFAULT)[address] [place] [address] Hemoglobin (Bld) [Mass/Vol] 12.6 g/dL Low 13.4-16.8 [facility] Comment on above: Performed By: #### L AB980 ####[facility] (DEFAULT)[address] [place] [address] Immature Grans % 0.5 % Normal [facility] Comment on above: Performed By: #### L AB980 ####[facility] (DEFAULT)[address] [place] [address] Immature Grans Absolute < Normal <=0.07 [facility] Comment on above: Performed By: #### L AB980 ####[facility] (DEFAULT)[address] [place] [address] Lymphocytes (Bld) [#/Vol] 0.90 10*3/uL Normal 0.83-3.57 [facility] Comment on above: Performed By: #### L AB980 ####[facility] (DEFAULT)[address] [place] [address] Lymphocytes/100 WBC (Bld) 14.7 % Normal [facility] Comment on above: Performed By: #### L AB980 ####[facility] (DEFAULT)[address] [place] [address] MCV (RBC) [Entitic vol] 97.7 fL High 79.0-94.5 [facility] Comment on above: Performed By: #### L AB980 ####[facility] (DEFAULT)[address] [place] [address] Mean Cell Hgb 31.7 pg Normal 26.1-33.3 [facility] Comment on above: Performed By: #### L AB980 ####[facility] (DEFAULT)[address] [place] [address] Mean Cell Hgb Conc 32.5 g/dL Normal 31.9-36.5 [facility] Comment on above: Performed By: #### L AB980 ####[facility] (DEFAULT)[address] [place] [address] Monocytes (Bld) [#/Vol] 0.55 10*3/uL Normal 0.24-0.93 [facility] Comment on above: Performed By: #### L AB980 ####[facility] (DEFAULT)[address] [place] [address] Monocytes/100 WBC (Bld) 9.0 % Normal [facility] Comment on above: Performed By: #### L AB980 ####[facility] (DEFAULT)[address] [place] [address] Nucleated RBC 0.0 /100 WBC Normal <=0.2 [facility] Comment on above: Performed By: #### L AB980 ####[facility] (DEFAULT)[address] [place] [address] Platelet mean volume (Bld) [Entitic vol] 12.1 fL Normal 8.7-12.3 [facility] Comment on above: Performed By: #### L AB980 ####[facility] (DEFAULT)[address] [place] [address] Platelets (Bld) [#/Vol] 281 10*3/uL Normal 146-337 [facility] Comment on above: Performed By: #### L AB980 ####[facility] (DEFAULT)[address] [place] [address] RBC (Bld) [#/Vol] 3.97 10*6/uL Low 4.38-5.83 [facility] Comment on above: Performed By: #### L AB980 ####[facility] (DEFAULT)[address] [place] [address] RBC Distribution 15.5 % High 10.9-14.3 [facility] Comment on above: Performed By: #### L AB980 ####[facility] (DEFAULT)[address] [place] [address] Segs + Bands Auto 75.1 % Normal [facility] Comment on above: Performed By: #### L AB980 ####[facility] (DEFAULT)[address] [place] [address] Segs + Bands,Absolute Auto 4.60 K/uL Normal 1.57-6.19 [facility] Comment on above: Performed By: #### L AB980 ####[facility] (DEFAULT)[address] [place] [address] WBC (Bld) [#/Vol] 6.12 10*3/uL Normal 3.73-10.10 [facility] Comment on above: Performed By: #### L AB980 ####[facility] (DEFAULT)[address] [place] [address] CHEM 7 (LYTES,BUN,CREA,GLUC) on 03-15-2024 Anion gap [Moles/Vol] 12 mmol/L 7 - 17 mmol/L [facility] Chloride [Moles/Vol] 102 mmol/L 98 - 10 8 mmol/L [facility] CO2 [Moles/Vol] 26 mmol/L 21 - 31 mmol/L [facility] Creatinine [Mass/Vol] 0.69 mg/dL Low 0.70 - 1.30 mg/dL [facility] eGFR, CKD-EPI, Male - PINF [facility] Comment on above: Reported eGFR is bas ed on the CKD-EPI 2021 equation using creatinine, age, and sex. Glucose [Mass/Vol] 85 mg/dL Nonfastin g Glucose: 70-179 [facility] Osmolality Calc [Osmolality] 285 [facility] Potassium [Moles/Vol] 4.2 mmol/L 3.5 - 5.0 mmol/L [facility] Sodium [Moles/Vol] 136 mmol/L 135 - 145 mmol/L [facility] Urea nitrogen [Mass/Vol] 14 mg/dL 7 - 25 mg/dL [facility] Urea nitrogen/Creatinine [Mass ratio] 20 mg/mg [facility] Anion gap [Moles/Vol] 12 mmol/L Normal 7-17 [facility] Comment on above: Performed By: #### E NZ3, ALB, CHM7, CA, BILI ####[facility] (DEFAULT)[address] [place] [address] Chloride [Moles/Vol] 102 mmol/L Normal 98-108 [facility] Comment on above: Performed By: #### E NZ3, ALB, CHM7, CA, BILI ####[facility] (DEFAULT)[address] [place] [address] CO2 [Moles/Vol] 26 mmol/L Normal 21-31 [facility] Comment on above: Performed By: #### E NZ3, ALB, CHM7, CA, BILI ####[facility] (DEFAULT)[address] [place] [address] Creatinine [Mass/Vol] 0.69 mg/dL Low 0.70-1.30 [facility] Comment on above: Performed By: #### E NZ3, ALB, CHM7, CA, BILI ####[facility] (DEFAULT)[address] [place] [address] eGFR, CKD-EPI, Male > Normal >=60 [facility] Comment on above: Result Comment: Repo rted eGFR is based on the CKD-EPI 2021 equation using creatinine, age, and sex. Performed By: #### E NZ3, ALB, CHM7, CA, BILI ####[facility] (DEFAULT)[address] [place] [address] Glucose [Mass/Vol] 85 mg/dL Normal Nonfastin g Glucose: 70-179 [facility] Comment on above: Performed By: #### E NZ3, ALB, CHM7, CA, BILI ####[facility] (DEFAULT)[address] [place] [address] Osmolality [Osmolality] 285 mosm/kg Normal 278-305 [facility] Comment on above: Performed By: #### E NZ3, ALB, CHM7, CA, BILI ####[facility] (DEFAULT)[address] [place] [address] Potassium [Moles/Vol] 4.2 mmol/L Normal 3.[facility].[address] [facility] Comment on above: Performed By: #### E NZ3, ALB, CHM7, CA, BILI ####[facility] (DEFAULT)[address] [place] [address] Sodium [Moles/Vol] 136 mmol/L Normal 135-145 [facility] Comment on above: Performed By: #### E NZ3, ALB, CHM7, CA, BILI ####[facility] (DEFAULT)[address] [place] [address] Urea nitrogen [Mass/Vol] 14 mg/dL Normal 7-25 [facility] Comment on above: Performed By: #### E NZ3, ALB, CHM7, CA, BILI ####[facility] (DEFAULT)[address] [place] [address], [place] [address] Urea nitrogen/Creatinine [Mass ratio] 20 mg/mg Normal [facility] Comment on above: Performed By: #### E NZ3, ALB, CHM7, CA, BILI ####[facility] (DEFAULT)[address] [place] [address] CMV IGG ABon 03-15-2024 CMV IgG Antibody Negative Normal Negative [facility] Comment on above: Performed By: #### H AABG, HBCBG, CMVG ####[facility] (DEFAULT)[address] [place] [address] EBV VCA IGG ABon 03-15-2024 EBV capsid IgG Ql (S) Positive Abnormal Negative [facility] Interpretation and review of laboratory results Abnormal [facility] EBV VCA IgG Antibody Positive Abnormal Negative [facility] Comment on above: Performed By: #### V ZISB, RUBOIB, EBVG ####[facility] (DEFAULT)[address] [place] [address] ETHANOL (ALCOHOL), URINEon 0 03-15-2024 Ethanol Ql (U) mg/dL NINF - 10 mg/dL [facility] Ethanol Ql (U) Not detected [facility] Alcohol Not detected Normal [facility] Comment on above: Performed By: #### A LCOUU ####[facility] (DEFAULT)[address] [place] [address] 34393 Alcohol, Urine <10 Normal <10 [facility] Comment on above: Performed By: #### A LCOUU ####[facility] (DEFAULT)[address] [place] [address]40[address] HEMOGLOBIN A1Con 03-15-2024 Average glucose Estimated from glycated hemoglobin (Bld) [Mass/Vol] 103 mg/dL [facility] HbA1c (Bld) [Mass fraction] 5.2 % 4.7 - 5.6 % [facility] Glucose [Mass/Vol] 103 mg/dL Normal [facility] Comment on above: Order Comment: Trans plant Coordinator should order if patient is diagnosed with Diabetes Performed By: #### A 1CB ####[facility] (DEFAULT)[address] [place] [address] Hemoglobin A1C HPLC 5.2 % Normal 4.7-5.6 [facility] Comment on above: Order Comment: Trans plant Coordinator should order if patient is diagnosed with Diabetes Performed By: #### A 1CB ####[facility] (DEFAULT)[address] [place] [address] HEPATITIS A AB, TOTAL (IGG+I GM)Ordered By: Shanell Cosme on 03-15-2024 HAV IgG+IgM Ql (S) Positive Abnormal Negative [facility] Interpretation and review of laboratory results Abnormal [facility] HEPATITIS A AB, TOTAL (IGG+I GM)on 03-15-2024 Hep A Ab, (IgG+IgM) Positive Abnormal Negative [facility] Comment on above: Performed By: #### H AABG, HBCBG, CMVG ####[facility] (DEFAULT)[address] [place] [address] HEPATITIS B CORE AB,TOTAL (I GG+IGM)on 03-15-2024 HBV core IgG+IgM Ql (S) Negative Negative [facility] Hep B Core Ab,Total (IgG+IgM) Negative Normal Negative [facility] Comment on above: Performed By: #### H AABG, HBCBG, CMVG ####[facility] (DEFAULT)[address] [place] [address] HEPATITIS B SURFACE ANTIBODY on 03-15-2024 HBV surface Ab IA Ql (S) Negative Negative [facility] Interpretation and review of laboratory results Normal [facility] Hep B Surface Ab Negative Normal Negative [facility] Comment on above: Performed By: #### H BSAG, SYPHT, HBSAB ####[facility] (DEFAULT)[address] [place] [address] HEPATITIS B SURFACE ANTIGENo n 03-15-2024 HBV surface Ag Ql (S) Negative Negative [facility] Hepatitis B Surface Ag Negative Normal Negative [facility] Comment on above: Performed By: #### H BSAG, SYPHT, HBSAB ####[facility] (DEFAULT)[address] [place] [address]267 HEPATITIS C ANTIBODYon 03-15 HCV Ab Ql (S) Negative Negative [facility] Hepatitis C Antibody Negative Normal Negative [facility] Comment on above: Performed By: #### H CAB ####[facility] (DEFAULT)[address] [place] [address] 10429 HIV 1 AND 2 ANTIBODIES/P24 A NTIGENon 03-15-2024 HIV 1+2 Ab+HIV1 p24 Ag IA Ql Non-Reactive Non Reactive [facility] HIV-1/HIV-2 Ab With p24 Antigen Non-Reactive Normal Non Reactive [facility] Comment on above: Performed By: #### L [id number] ####[facility] (DEFAULT)[address] [place] [address]60 HLA TYPING (SOLID ORGAN)on 0 03-15-2024 A 24,26 [facility] Comment on above: Performed By: #### H LAB ####[facility] (DEFAULT)[address] [place] [address] 25010 B 27,60 [facility] Comment on above: Performed By: #### H LAB ####[facility] (DEFAULT)[address] [place] [address] 15775 BW 4,6 [facility] Comment on above: Performed By: #### H LAB ####[facility] (DEFAULT)[address] [place] [address] 61518 C 2,10 [facility] Comment on above: Performed By: #### H LAB ####[facility] (DEFAULT)[address] [place] [address] DPA1* 01:03 [facility] Comment on above: Performed By: #### H LAB ####[facility] (DEFAULT)[address] [place] [address] DPA11 - Normal [facility] Comment on above: Result Comment: Test [...] need for FDA approval.Testing performed by the [facility]. [facility] number: [id number]. [employer] number: [id number], Director: Urban Millard, PhD, F([facility]). Performed By: #### H LAB ####[facility] (DEFAULT)[address] [place] [address], [place] [address] DPB1* DPB11 06:01 [facility] Comment on above: Performed By: #### H LAB ####[facility] (DEFAULT)[address] [place] [address] DPB1*DPB1A 04:01 [facility] Comment on above: Performed By: #### H LAB ####[facility] (DEFAULT)[address] [place] [address] DQA1* 01:03 [facility] Comment on above: Performed By: #### H LAB ####[facility] (DEFAULT)[address] [place] [address] DQA1*DQA11 03:01 [facility] Comment on above: Performed By: #### H LAB ####[facility] (DEFAULT)[address] [place] [address] DQB1 8,6 [facility] Comment on above: Performed By: #### H LAB ####[facility] (DEFAULT)[address] [place] [address], [place] [address] DQB1* 03:02 [facility] Comment on above: Performed By: #### H LAB ####[facility] (DEFAULT)[address] [place] [address] DQB1* - DQB11 06:03 [facility] Comment on above: Performed By: #### H LAB ####[facility] (DEFAULT)[address] [place] [address], [place] [address] DR 4,13 [facility] Comment on above: Performed By: #### H LAB ####[facility] (DEFAULT)[address] [place] [address], [place] [address] DR51,52,53 52,53 [facility] Comment on above: Performed By: #### H LAB ####[facility] (DEFAULT)[address] [place] [address], [place] [address] DRB1* 04:01 [facility] Comment on above: Performed By: #### H LAB ####[facility] (DEFAULT)[address] [place] [address], [place] [address] DRB1* - DRB11 13:01 [facility] Comment on above: Performed By: #### H LAB ####[facility] (DEFAULT)[address] [place] [address], [place] [address] DRB3* 02:02 [facility] Comment on above: Performed By: #### H LAB ####[facility] (DEFAULT)[address] [place] [address], [place] [address] DRB4* 01:03 [facility] Comment on above: Performed By: #### H LAB ####[facility] (DEFAULT)[address] [place] [address], [place] [address] HLA A* 24:02 [facility] Comment on above: Performed By: #### H LAB ####[facility] (DEFAULT)[address] [place] [address] 19717 HLA A* - HLAAA 26:01 [facility] Comment on above: Performed By: #### H LAB ####[facility] (DEFAULT)[address] [place] [address] 85848 HLA B* 27:05 [facility] Comment on above: Performed By: #### H LAB ####[facility] (DEFAULT)[address] [place] [address] 74752 HLA B* - HLABBB 40:01 Normal [facility] Comment on above: Performed By: #### H LAB ####[facility] (DEFAULT)[address] [place] [address] 65924 HLA C* 02:02 [facility] Comment on above: Performed By: #### H LAB ####[facility] (DEFAULT)[address] [place] [address] 27041 HLA C* - HLACC 03:04 [facility] Comment on above: Performed By: #### H LAB ####[facility] (DEFAULT)[address] [place] [address] 45036 HSV 1 AND 2 IGG ANTIBODYon 0 03-15-2024 HSV 1 IgG IA Qn (S) Negative Negative [facility] HSV 2 IgG IA Qn (S) Negative Negative [facility] Interpretation and review of laboratory results Normal [facility] HSV 1 IgG Antibody Negative Normal Negative [facility] Comment on above: Performed By: #### H SVG12 ####[facility] (DEFAULT)[address] [place] [address] 66365 HSV 2 IgG Antibody Negative Normal Negative [facility] Comment on above: Performed By: #### H SVG12 ####[facility] (DEFAULT)[address] [place] [address] M [address]CULOSIS BY [address] 03-15-2024 M. TB Mitogen-Nil 3.49 IU/mL Normal [facility] Comment on above: Order Comment: The M . Tuberculosis antigen levels cannot be correlated to stage or degree of infection, response to therapy or likelihood for progression to active disease. Results from QuantiFERON TB Gold Plus must be used in conjunction with individual epidemiological history, current medical status, and results of other diagnostic evaluation. Performed By: #### Q FTB ####[facility] (DEFAULT)[address] [place] [address] 90283 M. TB Nil 0.01 IU/mL Normal [facility] Comment on above: Order Comment: The M . Tuberculosis antigen levels cannot be correlated to stage or degree of infection, response to therapy or likelihood for progression to active disease. Results from QuantiFERON TB Gold Plus must be used in conjunction with individual epidemiological history, current medical status, and results of other diagnostic evaluation. Performed By: #### Q FTB ####[facility] (DEFAULT)[address] [address] M. TB TB1-Nil 0.00 IU/mL Normal [facility] Comment on above: Order Comment: The M . Tuberculosis antigen levels cannot be correlated to stage or degree of infection, response to therapy or likelihood for progression to active disease. Results from QuantiFERON TB Gold Plus must be used in conjunction with individual epidemiological history, current medical status, and results of other diagnostic evaluation. Performed By: #### Q FTB ####[facility] (DEFAULT)[address] [place] [address] 74506 M. TB TB2-Nil 0.00 IU/mL Normal [facility] Comment on above: Order Comment: The M . Tuberculosis antigen levels cannot be correlated to stage or degree of infection, response to therapy or likelihood for progression to active disease. Results from QuantiFERON TB Gold Plus must be used in conjunction with individual epidemiological history, current medical status, and results of other diagnostic evaluation. Performed By: #### Q FTB ####[facility] (DEFAULT)[address] [place] [address] M. Tuberculosis by Quantiferon in tube Negative Normal Negative [facility] Comment on above: Order Comment: The M . Tuberculosis antigen levels cannot be correlated to stage or degree of infection, response to therapy or likelihood for progression to active disease. Results from QuantiFERON TB Gold Plus must be used in conjunction with individual epidemiological history, current medical status, and results of other diagnostic evaluation. Performed By: #### Q FTB ####[facility] (DEFAULT)[address] [place] [address] No Panel Informationon 03-15 [facility] Interpretation and review of laboratory results Normal [facility] Interpretation and review of laboratory results Normal [facility] Interpretation and review of laboratory results Abnormal [facility] Interpretation and review of laboratory results Normal [facility] PHOSPHATIDYLETHANOL (PETH), WHOLE BLOOD QUANTITATIVEon 03-15-2024 PEth 16:0/18:1 (POPEth) <10 Normal Cutoff: 10 [facility] Comment on above: Result Comment: Phos phatidylethanol (PEth) homologues result interpretationPEth 16:0/18:1 (POPEth)Less than 10 ng/mL: Not mahmdonq12 - 19 ng/mL: Abstinence or light alcohol [...] Forensic Sci) Performed By: #### L ABXPETH ####[facility] (DEFAULT)[address] [address] PEth 16:0/18:2 (PLPEth) <10 Normal Cutoff: 10 [facility] Comment on above: Result Comment: PEth 16:0/18:2 (PLPEth)Reference ranges are not well established Performed By: #### L ABXPETH ####[facility] (DEFAULT)[address] [place] [address] 15354 PHOSPHATIDYLETHANOL (PETH), WHOLE BLOOD QUANTITATIVE Negative Normal [facility] Comment on above: Result Comment: ---- ADDITIONAL INFORMATION This report is intended for use in clinical monitoring andmanagement of patients. It is not intended for use inemployment-related testing.This test was developed and its performance characteristicsdetermined by [facility] in a manner consistent with CLIArequirements. This test has not been cleared or approved bythe U.S. Food and Drug Administration.Test Performed by:[facility] [place], [place] [id number] Director: Orlando Cruz Ph.D.; CLIA# [id number] Performed By: #### L ABXPETH ####[facility] (DEFAULT)[address] [place] [address] 40556 PSA, SCREENINGon 03-15-2024 Interpretation and review of laboratory results Normal [facility] Prostate specific Ag [Mass/Vol] 0.48 ng/mL NINF - 4.00 ng/mL [facility] Comment on above: This test was perfor med on the Right90 Immunoassay platform which is a 2-step sandwich chemiluminescent immunoassay. It is important to note that assays using different manufacturers and/or methods may not be comparable. [facility] PT,INR,PTTon 03-15-2024 aPTT Coag (PPP) [Time] 32.5 s [facility] INR Coag (Bld) [Relative time] 1.5 {INR} High 0.9 - 1.1 [facility] Interpretation and review of laboratory results Abnormal [facility] PT Coag (PPP) [Time] 18.5 s High [facility] aPTT Coag (Bld) [Time] 32.5 s Normal 24.0-34.3 [facility] Comment on above: Performed By: #### P TPTT ####[facility] (DEFAULT)[address] [place] [address] INR Coag (PPP) [Relative time] 1.5 {INR} High 0.9-1.1 [facility] Comment on above: Performed By: #### P TPTT ####[facility] (DEFAULT)[address] [place] [address] PT Coag (PPP) [Time] 18.5 s High 11.9-14.2 [facility] Comment on above: Performed By: #### P TPTT ####[facility] (DEFAULT)[address] [place] [address], [place] [address] RUBEOLA IGG AB (IMMUNE STATU S)on 03-15-2024 MeV IgG IA Qn (S) 8.0 {index_val} [facility] Comment on above: THIS IS A QUALITATIV E ASSAY. The numeric value is not necessarily indicative of the amount of anti-Measles, Mumps, Rubella, or VZV IgG antibody present. Results should be interpreted in conjunction with clinical and epidemological data. MeV IgG Ql (S) Positive Positive [facility] Comment on above: A positive result in dicates either prior exposure to the virus or response to vaccination. The presence of Rubeola IgG suggests immunity against rubeola. A positive result indicates immunity through past immunization or prior infection. Measles Rubeola Immune Status Ab Positive Normal Positive [facility] Comment on above: Result Comment: A po sitive result indicates either prior exposure to the virus or response to vaccination. The presence of Rubeola IgG suggests immunity against rubeola.A positive result indicates immunity through past immunization or prior infection. Performed By: #### V ZISB, RUBOIB, EBVG ####[facility] (DEFAULT)[address] [place] [address] Measles Rubeola Immune Status IgG Index 8.[address] [facility] Comment on above: Result Comment: THIS IS A QUALITATIVE ASSAY. The numeric value is not necessarily indicative of the amount of anti-Measles, Mumps, Rubella, or VZV IgG antibody present. Results should be interpreted in conjunction with clinical and epidemological data. Performed By: #### V ZISB, RUBOIB, EBVG ####[facility] (DEFAULT)[address] [place] [address] SYPHILIS AB W/REFLEX RPRon 0 03-15-2024 Syphilis IgG/IGM Total Non-Reactive Normal Non Reactive [facility] Comment on above: Performed By: #### H BSAG, SYPHT, HBSAB ####[facility] (DEFAULT)[address] [place] [address] 43669 T. pallidum Ab Ql (S)on 03-02 T. pallidum IgG Ql (S) Non-Reactive Non Reactive [facility] TYPE AND SCREENon 03-15-2024 ABO/RH(D) TYPE Positive [facility] Outdate Specimen 03/18/2024 23:59 [facility] ABO/RH(D) TYPE Positive Normal [facility] Comment on above: Performed By: #### X M ####[facility] (DEFAULT)[address] [place] [address] 92443 Outdate Specimen 03/18/2024 23:59 Normal [facility] Comment on above: Performed By: #### X M ####[facility] (DEFAULT)[address] [place] [address] 30799 URINE DRUG SCREEN 10 WITH CO NFIRMATIONOrdered By: Fanny Walters on 03-15-2024 Amphetamine+Methamphe tamine Screen (U) [Mass/Vol] Not detected Cutoff: 500 ng/mL [facility] Barbiturates Ql (U) Not detected Cutoff: 200 ng/mL [facility] Benzodiazepines Ql (U) Not detected Cutoff: 200 ng/mL [facility] Buprenorphine Ql (U) Not detected Cutoff: 5 ng/mL [facility] Cannabinoids Screen Ql (U) Not detected Cutoff: 50 ng/mL [facility] Cocaine Ql (U) Not detected Cutoff: 150 ng/mL [facility] Creatinine (U) [Mass/Vol] 81.8 mg/dL 20.0 - PINF mg/dL [facility] fentaNYL Ql (U) Not detected Cutoff: 1 ng/mL [facility] Interpretation and review of laboratory results Normal [facility] Methadone Ql (U) Not detected Cutoff: 300 ng/mL [facility] Opiates Ql (U) Not detected Cutoff: 300 ng/mL [facility] oxyCODONE Ql (U) Not detected Cutoff: 100 ng/mL [facility] URINE DRUG SCREEN 10 WITH CO NFIRMATIONon 03-15-2024 Amphetamine/Methamphe tamine Not detected Normal Cutoff: 500 ng/mL [facility] Comment on above: Performed By: #### U PMSC, THCCMS ####[facility] (DEFAULT)[address] [place] [address] Barbiturates Not detected Normal Cutoff: 200 ng/mL [facility] Comment on above: Performed By: #### U PMSC, THCCMS ####[facility] (DEFAULT)[address] [place] [address] Benzodiazepines Not detected Normal Cutoff: 200 ng/mL [facility] Comment on above: Performed By: #### U PMSC, THCCMS ####[facility] (DEFAULT)[address] [place] [address] Buprenorphine Not detected Normal Cutoff: 5 ng/mL [facility] Comment on above: Performed By: #### U PMSC, THCCMS ####[facility] (DEFAULT)[address] [place] [address] Cannabinoids Screen Ql (U) Not detected Normal Cutoff: 50 ng/mL [facility] Comment on above: Performed By: #### U PMSC, THCCMS ####[facility] (DEFAULT)[address] [place] [address] Cocaine Not detected Normal Cutoff: 150 ng/mL [facility] Comment on above: Performed By: #### U PMSC, THCCMS ####[facility] (DEFAULT)[address] [place] [address], [place] [address] Creatinine,Urine 81.8 mg/dL Normal >=20.0 [facility] Comment on above: Performed By: #### U PMSC, THCCMS ####[facility] (DEFAULT)[address] [place] [address], [place] [address] Fentanyl Not detected Normal Cutoff: 1 ng/mL [facility] Comment on above: Performed By: #### U PMSC, THCCMS ####[facility] (DEFAULT)[address] [place] [address], [place] [address] Methadone Not detected Normal Cutoff: 300 ng/mL [facility] Comment on above: Performed By: #### U PMSC, THCCMS ####[facility] (DEFAULT)[address] [place] [address] 06298 Opiates Not detected Normal Cutoff: 300 ng/mL [facility] Comment on above: Performed By: #### U PMSC, THCCMS ####[facility] (DEFAULT)[address] [place] [address] 18299 Oxycodone Not detected Normal Cutoff: 100 ng/mL [facility] Comment on above: Performed By: #### U PMSC, THCCMS ####[facility] (DEFAULT)[address] [place] [address]102 VARICELLA IGG AB (IMM STATUS )on 03-15-2024 VZV IgG Ql (S) Positive Positive [facility] Comment on above: Prior exposure to th e varicella zoster virus may cause measurable varicella zoster IgG antibody. A positive result indicates immunity through past immunization or prior infection. VZV IgG Qn (S) 5.4 [facility] Comment on above: THIS IS A QUALITATIV E ASSAY. The numeric value is not necessarily indicative of the amount of anti-Measles, Mumps, Rubella, or VZV IgG antibody present. Results should be interpreted in conjunction with clinical and epidemological data. Varicella Immune Status IgG Antibody Positive Normal Positive [facility] Comment on above: Result Comment: Prio r exposure to the varicella zoster virus may cause measurable varicella zoster IgG antibody.A positive result indicates immunity through past immunization or prior infection. Performed By: #### V NITA TRANB, EBVG ####[facility] (DEFAULT)[address] [place] [address] Varicella Immune Status IgG Index 5.[address] [facility] Comment on above: Result Comment: THIS IS A QUALITATIVE ASSAY. The numeric value is not necessarily indicative of the amount of anti-Measles, Mumps, Rubella, or VZV IgG antibody present. Results should be interpreted in conjunction with clinical and epidemological data. Performed By: #### V KEVSNITA WardB, EBVG ####[facility] (DEFAULT)[address] [place] [address] XR CHEST PA AND LATERAL 2 EWSon 03-15-2024 XR CHEST PA AND LATERAL [address] [facility] XR Chest PA and Lateralon IMPRESSION: [...] Normal IMPRESSION IMPRESSION: No acute cardiopulmonary disease [facility] Radiology Study observation (narrative) [facility] XR Chest PA and LateralOrder ed By: Keturah Lemons on 03-15-2024 [facility] Work Phone: DNA EXTRACTION, TISSUEOrdere d By: Maxwell Villalobos on 02-26-2024 [facility] CYTOLOGY, NON-GYNon 02-25-20 [address] [facility] Comment on above: Result Comment: Laurie [...] diagnostic interpretation. Performed By: #### N ONGNNONFNA ####[facility] (DEFAULT)[address] [place] [address] [facility] Comment on above: Result Comment: [facility] Cytology Report Case: [id number] Provider: Nan Farrar MD, Collected: 02/25/2024 10:16 AM MPHOrdering Location: [facility] Received: 02/25/2024 11:44 AMPathologist: MalachiMAGDY Truongpecimen: COMMON HEPATIC DUCT BRUSHING, CHD Brushing Performed By: #### N ONGNNONFNA ####[facility] (DEFAULT)[address] [place] [address] Gross Description Normal [facility] Comment on above: Result Comment: Comm on Hepatic Duct Geoaeeim32 ml cloudy red fluid unfixed with brush1 TP slide PAP stain Performed By: #### N ONGNNONFNA ####[facility] (DEFAULT)[address] [place] [address] Professional Interpretation Performed at: Normal [facility] Comment on above: Result Comment: For Immediate Release to Patient's MyChart? [facility] [id number] [place] [address] Performed By: #### N ONGNNONFNA ####[facility] (DEFAULT)[address] [place] [address] 52024 ERCPon 02-25-2024 [facility] Gastroenterology Patient Name: Jc Dunaway Procedure Date: 02/25/2024 7:51 AM Date of : 1965 Admit Type: Outpatient Age: 58 Room: ERCP [place] [address] Gender: Male Note Status: Finalized Attending MD: Nan Farrar MD, MPH, [id number] Procedure: ERCP Indications: Bile duct stricture, Primary [...] Cipro 400 mg IV, Indomethacin 100 mg NE, 1L Ringer Lactate Complications: No immediate complications. [...] patient tolerated the procedure well. Findings: The guard entrance registrar film was normal. The esophagus was successfully [...] [facility] Radiology Study observation (narrative) [facility] TUMOR HOTSPOT MUTATION PANEL , ACCESSIONINGOrdered By: Thad Johnson on 02-25-2024 AP BLOCK/SLIDE ID [id number] A1 [facility] AP SLIDE SCANNED [facility] APCP HISTOLOGY COMMENTS [facility] TUMOR HOTSPOT MUTATION PANEL , REQUESTOrdered By: Salty Suarez on 02-25-2024 Sample tested [id number] [facility] Work Phone: Sendout Result Processed on brushin g received at molecular lab [facility] Work Phone: Tissue tested Brushing common hepa tic duct [facility] Work Phone: Tumor type GI and Liver [facility] Work Phone: [facility] Work Phone: TUMOR HOTSPOT MUTATION PANEL , REQUESTon 02-25-2024 Sample tested [id number] Normal [facility] Comment on above: Performed By: #### L [id number] ####[facility] (DEFAULT)[address] [place] [address]40 Sendout Result Processed on brushin g received at molecular lab Normal [facility] Comment on above: Performed By: #### L [id number] ####[facility] (DEFAULT)[address] [place] [address] Tissue tested Brushing common hepa tic duct Normal [facility] Comment on above: Performed By: #### L [id number] ####[facility] (DEFAULT)[address] [place] [address] 65617 Tumor type GI and Liver Normal [facility] Comment on above: Performed By: #### L [id number] ####[facility] (DEFAULT)[address] [place] [address] Oncology Visit Reporton 01-30 Oncology Visit Report Normal [facility] Absolute neutrophil countOrd ered By: Robe Bosesuhas on 02-11-2024 Neutrophils (Bld) [#/Vol] 4.8 10*3/uL 2.0-7.7 [facility] Albumin to globulin ratioOrd ered By: [facility] Herman on 02-11-2024 Albumin/Globulin [Mass ratio] 0.7 {ratio} Low 0.9-2.4 [facility] Automated lymphocyte count a s percentage of total leukocytesOrdered By: Dashawnabdi Zavala on 02-11-2024 Lymphocytes/100 WBC Auto (Unsp spec) 15.9 % Low 19-41 [facility] Basophil percentageOrdered B y: Robe Herman on 02-11-2024 Basophils/100 WBC (Bld) 0.9 % 0-1 [facility] Bilirubin, totalOrdered By: [facility] Zavala on 02-11-2024 Bilirubin [Mass/Vol] 4.50 mg/dL High 0.20-1.00 [facility] Comment on above: For patients on eltr ombopag therapy, use of Dimension [place] TBIL is not recommended. Blood urea nitrogen (BUN)/cr eatinine ratioOrdered By: [facility] Zavala on 02-11-2024 Urea nitrogen/Creatinine [Mass ratio] 13.4 mg/mg 10-20 [facility] CBC W/Diff, Automatedon 01-30 Absolute Lymph 1.01 X10 3/uL Normal 0.83-4.51 [facility] Comment on above: Performed By: #### L 503.6030, L100.0100, L500.4050, L503.6550 ####[facility] [id number] [place], [address] Absolute Neut 4.8 X10 3/uL Normal 2.0-7.7 [facility] Comment on above: Performed By: #### L 503.6030, L100.0100, L500.4050, L503.6550 ####[facility] [address] [place], [address] Basophils/100 WBC (Bld) 0.9 % Normal 0-1 [facility] Comment on above: Performed By: #### L 503.6030, L100.0100, L500.4050, L503.6550 ####[facility] [address] [place], [address] Eosinophils/100 WBC (Bld) 0.0 % Normal 0-5 [facility] Comment on above: Performed By: #### L 503.6030, L100.0100, L500.4050, L503.6550 ####[facility] [address] [place], [address] Erythrocyte distribution width (RBC) [Ratio] 15.9 % High 11.6-14.6 [facility] Comment on above: Performed By: #### L 503.6030, L100.0100, L500.4050, L503.6550 ####[facility] [address] [place], [address] Hematocrit (Bld) [Volume fraction] 36.3 % Low 40-54 [facility] Comment on above: Performed By: #### L 503.6030, L100.0100, L500.4050, L503.6550 ####[facility] [address] [place], [address] Hemoglobin (Bld) [Mass/Vol] 12.2 g/dL Low 13.0-16.5 [facility] Comment on above: Performed By: #### L 503.6030, L100.0100, L500.4050, L503.6550 ####[facility] [address] [place], [address] IG% 0.500 Normal 0.0-0.9 [facility] Comment on above: Result Comment: IG% - Immature Granulocytes (promyelocytes, myelocytes andmetamyelocytes) > 1% indicates that a LEFT SHIFT is Present. Performed By: #### L 503.6030, L100.0100, L500.4050, L503.6550 ####[facility] [address] [place], [address] Lymphocytes/100 WBC (Bld) 15.9 % Low 19-41 [facility] Comment on above: Performed By: #### L 503.6030, L100.0100, L500.4050, [id number] ####[facility] [address] [place], [address] MCH (RBC) [Entitic mass] 32.7 pg High 27.0-32.0 [facility] Comment on above: Performed By: #### L 503.6030, L100.0100, L500.4050, [id number] ####[facility] [address] [place], [address] MCHC (RBC) [Mass/Vol] 33.6 g/dL Normal 32-36 [facility] Comment on above: Performed By: #### L 503.6030, L100.0100, L500.4050, [id number] ####[facility] [address] [place], [address] MCV (RBC) [Entitic vol] 97.3 fL High 80-94 [facility] Comment on above: Performed By: #### L 503.6030, L100.0100, L500.4050, [id number] ####[facility] [address] [place], [address] Monocytes/100 WBC (Bld) 8.0 % Normal 0-10 [facility] Comment on above: Performed By: #### L 503.6030, L100.0100, L500.4050, [id number] ####[facility] [address] [place], [address] Neutrophils/100 WBC (Bld) 74.7 % High 47-70 [facility] Comment on above: Performed By: #### L 503.6030, L100.0100, L500.4050, [id number] ####[facility] [address] [place], [address] Nucleated RBC (Bld) [#/Vol] 0 10*3/uL Normal 0-5 [facility] Comment on above: Performed By: #### L 503.6030, L100.0100, L500.4050, [id number] ####[facility] [address] [place], [address] Platelet mean volume (Bld) [Entitic vol] 10.8 fL Normal 6.2-12.0 [facility] Comment on above: Performed By: #### L 503.6030, L100.0100, L500.4050, [id number] ####[facility] [address] [place], [address] Platelets (Bld) [#/Vol] 302 10*3/uL Normal 150-450 [facility] Comment on above: Performed By: #### L 503.6030, L100.0100, L500.4050, [id number] ####[facility] [address] [place], [address] RBC (Bld) [#/Vol] 3.73 10*6/uL Low 4.6-6.2 [facility] Comment on above: Performed By: #### L 503.6030, L100.0100, L500.4050, [id number] ####[facility] [address] [place], [address] RDW SD 56.7 fl High 35.1-43.9 [facility] Comment on above: Performed By: #### L 503.6030, L100.0100, L500.4050, [id number] ####[facility] [address] [place], [address] WBC (Bld) [#/Vol] 6.4 10*3/uL Normal 4.4-11.0 [facility] Comment on above: Performed By: #### L 503.6030, L100.0100, L500.4050, [id number] ####[facility] [address] [place], [address] Carbon dioxide measurementOr dered By: [facility] on 02-11-2024 CO2 [Moles/Vol] 24.0 mmol/L 21.0-32.0 [facility] Chloride measurementOrdered By: [facility] on 02-11-2024 Chloride [Moles/Vol] 105 mmol/L 98-107 [facility] Comprehensive Metabolic Prof ilon 02-11-2024 Albumin [Mass/Vol] 2.8 g/dL Low 3.2-5.0 [facility] Comment on above: Performed By: #### L 503.6030, L100.0100, L500.4050, [id number] ####[facility] [address] [place], [address] Albumin/Globulin [Mass ratio] 0.7 {ratio} Low 0.9-2.4 [facility] Comment on above: Performed By: #### L 503.6030, L100.0100, L500.4050, [id number] ####[facility] [address] [place], [address] ALK P 454 U/L High 45-117 [facility] Comment on above: Performed By: #### L 503.6030, L100.0100, L500.4050, [id number] ####[facility] [address] [place], [address] ALT [Catalytic activity/Vol] 100 U/L High 16-61 [facility] Comment on above: Performed By: #### L 503.6030, L100.0100, L500.4050, [id number] ####[facility] [address] [place], [address] AST [Catalytic activity/Vol] 136 U/L High 15-37 [facility] Comment on above: Performed By: #### L 503.6030, L100.0100, L500.4050, [id number] ####[facility] [address] [place], [address] Bilirubin [Mass/Vol] 4.50 mg/dL High 0.20-1.00 [facility] Comment on above: Result Comment: For patients on eltrombopag therapy, use of Dimension [place] TBIL is not recommended. Performed By: #### L 503.6030, L100.0100, L500.4050, L503.6550 ####[facility] [address] [place], [address] BUN/CRE 13.4 RATIO Normal 10-20 [facility] Comment on above: Performed By: #### L 503.6030, L100.0100, L500.4050, [id number] ####[facility] [address] [place], [address] CA,Total 8.9 mg/dL Normal 8.5-10.1 [facility] Comment on above: Performed By: #### L 503.6030, L100.0100, L500.4050, [id number] ####[facility] [address] [place], [address] Chloride [Moles/Vol] 105 mmol/L Normal 98-107 [facility] Comment on above: Performed By: #### L 503.6030, L100.0100, L500.4050, [id number] ####[facility] [address] [place], [address] CO2 [Moles/Vol] 24.0 mmol/L Normal 21.0-32.0 [facility] Comment on above: Performed By: #### L 503.6030, L100.0100, L500.4050, L503.6550 ####[facility] [address] [place], [address] Creatinine [Mass/Vol] 0.75 mg/dL Normal 0.70-1.30 [facility] Comment on above: Result Comment: The validity of the calculated GFR GFRAA in patients over70 years has not been determined. Clinical correlation isessential. Performed By: #### L 503.6030, L100.0100, L500.4050, L503.6550 ####[facility] [address] [place], [address] ECRCL 69.48 ml/min Normal [facility] Comment on above: Performed By: #### L 503.6030, L100.0100, L500.4050, L503.6550 ####[facility] [address] [place], [address] EST GFR - AA 137 mL/min Normal >60 [facility] Comment on above: Result Comment: Afri can Ni[place]an GFR Calc Performed By: #### L 503.6030, L100.0100, L500.4050, L503.6550 ####[facility] [address] [place], [address] GAP 8 Normal 5-15 [facility] Comment on above: Performed By: #### L 503.6030, L100.0100, L500.4050, L503.6550 ####[facility] [address] [place], [address] GFR/1.73 sq M.predicted among non-blacks MDRD (S/P/Bld) [Vol rate/Area] 114 mL/min/{1.73_m2} Normal >60 [facility] Comment on above: Result Comment: Non- GFR Calc Performed By: #### L 503.6030, L100.0100, L500.4050, L503.6550 ####[facility] [address] [place], [address] Globulin (S) [Mass/Vol] 4.3 g/dL High 2.2-4.2 [facility] Comment on above: Performed By: #### L 503.6030, L100.0100, L500.4050, L503.6550 ####[facility] [address] [place], [address] Glucose [Mass/Vol] 182 mg/dL High 74-106 [facility] Comment on above: Result Comment: Fast ing Glucose result greater than or equal to 126 mg/dLsuggests DIABETES MELLITUS per A.D.A. criteria. Performed By: #### L 503.6030, L100.0100, L500.4050, L503.6550 ####[facility] [address] [place], [address] Potassium [Moles/Vol] 3.7 mmol/L Normal 3.5-5.1 [facility] Comment on above: Performed By: #### L 503.6030, L100.0100, L500.4050, L503.6550 ####[facility] [address] [place], [address] Sodium [Moles/Vol] 137 mmol/L Normal 136-145 [facility] Comment on above: Performed By: #### L 503.6030, L100.0100, L500.4050, L503.6550 ####[facility] [address] [place], [address] T PROT 7.1 g/dL Normal 6.4-8.2 [facility] Comment on above: Performed By: #### L 503.6030, L100.0100, L500.4050, L503.6550 ####[facility] [address] [place], [place], [id number] Urea nitrogen [Mass/Vol] 10 mg/dL Normal 7-18 [facility] Comment on above: Performed By: #### L 503.6030, L100.0100, L500.4050, L503.6550 ####[facility] [address] [place], [place], [id number] Eosinophil percentageOrdered By: Robe Zavala on 02-11-2024 Eosinophils/100 WBC (Bld) 0.0 % 0-5 [facility] Erythrocyte distribution wid th ratioOrdered By: [facility] on 02-11-2024 Erythrocyte distribution width (RBC) [Ratio] 15.9 % High 11.6-14.6 [facility] Erythrocyte distribution wid th standard deviationOrdered By: [facility] on 02-11-2024 Erythrocyte distribution width (RBC) [Entitic vol] 56.7 fL High 35.1-43.9 [facility] Estimated glomerular filtrat ion rate (GFR) AmericanOrdered By: Robe Zavala on 02-11-2024 Estimated GFR (MDRD) Amer 137 mL/min >60 [facility] Comment on above: GFR Calc Estimation of creatinine daniel aranceOrdered By: Robe Zavala on 02-11-2024 Estimated Creatinine Clearance Calc 69.48 ml/min [facility] Ferritinon 02-11-2024 Ferritin [Mass/Vol] 92 ng/mL Normal 26-388 [facility] Comment on above: Performed By: #### L 503.6030, L100.0100, L500.4050, L503.6550 ####[facility] [address] [place], [place], [id number] Ferritin measurementOrdered By: Robe Zavala on 02-11-2024 Ferritin [Mass/Vol] 92 ng/mL 26-388 [facility] Glomerular filtration rate ( GFR) estimationOrdered By: Robe Zavala on 02-11-2024 Estimated GFR (MDRD) Non-Af Amer 114 mL/min >60 [facility] Comment on above: Non- GFR Calc Glucose measurementOrdered B y: Robe Herman on 02-11-2024 Glucose [Mass/Vol] 182 mg/dL High 74-106 [facility] Comment on above: Fasting Glucose resu lt greater than or equal to 126 mg/dL suggests DIABETES MELLITUS per A.D.A. criteria. Hematocrit Auto (Bld) [Volum e fraction]Ordered By: Robe Zavala on 02-11-2024 Hematocrit (Bld) [Volume fraction] 36.3 % Low 40-54 [facility] Hemoglobin measurementOrdere d By: Robe Zavala on 02-11-2024 Hemoglobin (Bld) [Mass/Vol] 12.2 g/dL Low 13.0-16.5 [facility] Immature granulocytes/100 WB C Auto (Bld)Ordered By: Robe Zavala on 02-11-2024 Immature granulocytes/100 WBC (Bld) 0.500 % 0.0-0.9 [facility] Comment on above: IG% - Immature Granu locytes (promyelocytes, myelocytes and metamyelocytes) > 1% indicates that a LEFT SHIFT is Present. Iron (Unsp spec) [Mass/Mass] Ordered By: Robe Zavala on 02-11-2024 Iron [Mass/Vol] 81 ug/dL 65-175 [facility] Iron measurement (mass/mass) Ordered By: [facility] on 02-11-2024 Iron (Unsp spec) [Mass/Mass] 81 ug/dL 65-175 [facility] Iron saturation [Mass fracti on]Ordered By: [facility] on 02-11-2024 Iron Saturation 23.8 % 15.0-55.0 [facility] Iron+Iron Binding Capacityon 02-11-2024 Iron [Mass/Vol] 81 ug/dL Normal 65-175 [facility] Comment on above: Performed By: #### L 503.6030, L100.0100, L500.4050, L503.6531 ####[facility] [address] [place], [place], [id number] IRON SATURATION 23.8 Normal 15.0-55.0 [facility] Comment on above: Performed By: #### L 503.6030, L100.0100, L500.4050, L503.6550 ####[facility] [address] [place], [address] TIBC 341 ug/dL Normal 250-450 [facility] Comment on above: Performed By: #### L 503.6030, L100.0100, L500.4050, L503.6550 ####[facility] [address] [place], [address] Laboratory - Chemistry and C hemistry - challengeOrdered By: Robe Zavala on 02-11-2024 AST [Catalytic activity/Vol] 136 U/L High 15-37 [facility] Lymphocytes Auto (Unsp spec) [#/Vol]Ordered By: Robe Zavala on 02-11-2024 Lymphocytes (Bld) [#/Vol] 1.01 10*3/uL 0.83-4.51 [facility] Lymphocytes/100 WBC Auto (Un sp spec)Ordered By: Robe Zavala on 02-11-2024 Lymphocytes/100 WBC (Bld) 15.9 % Low 19-41 [facility] MCV (mean corpuscular volume ) determinationOrdered By: Robe Zavala on 02-11-2024 MCV (RBC) [Entitic vol] 97.3 fL High 80-94 [facility] Mean corpuscular hemoglobin (MCH) determinationOrdered By: Robe Zavala on 02-11-2024 MCH (RBC) [Entitic mass] 32.7 pg High 27.0-32.0 [facility] Mean corpuscular hemoglobin concentration (MCHC) determinationOrdered By: Robe Zavala on 02-11-2024 MCHC (RBC) [Mass/Vol] 33.6 g/dL 32-36 [facility] Mean platelet volume determi nationOrdered By: Robe Zavala on 02-11-2024 Platelet mean volume (Bld) [Entitic vol] 10.8 fL 6.2-12.0 [facility] Monocyte percentageOrdered B y: Robe Zavala on 02-11-2024 Monocytes/100 WBC (Bld) 8.0 % 0-10 [facility] Neutrophil percentageOrdered By: Robe Zavala on 02-11-2024 Neutrophils/100 WBC (Bld) 74.7 % High 47-70 [facility] Nucleated red blood cell per centageOrdered By: Robe Zavala on 02-11-2024 Nucleated RBC/100 WBC (Bld) [Ratio] 0 % 0-5 [facility] Platelet countOrdered By: Edwina Zavala on 02-11-2024 Platelets (Bld) [#/Vol] 302 10*3/uL 150-450 [facility] Potassium measurementOrdered By: Robe Zavala on 02-11-2024 Potassium [Moles/Vol] 3.7 mmol/L 3.5-5.1 [facility] RBC Auto (Bld) [#/Vol]Ordere d By: Robe Zavala on 02-11-2024 RBC (Bld) [#/Vol] 3.73 10*6/uL Low 4.6-6.2 [facility] Serum anion gap measurementO rdered By: Robe Zavala on 02-11-2024 Anion gap [Moles/Vol] 8 mmol/L 5-15 [facility] Serum globulin measurementOr dered By: Robe Zavala on 02-11-2024 Globulin (S) [Mass/Vol] 4.3 g/dL High 2.2-4.2 [facility] Serum or plasma alanine craig otransferase (ALT) measurementOrdered By: Robe Zavala on 02-11-2024 ALT [Catalytic activity/Vol] 100 U/L High 16-61 [facility] Serum or plasma albumin megha urement (mass/volume)Ordered By: Robe Zavala on 02-11-2024 Albumin [Mass/Vol] 2.8 g/dL Low 3.2-5.0 [facility] Serum or plasma alkaline sal sphatase measurementOrdered By: Robe Zavala on 02-11-2024 ALP [Catalytic activity/Vol] 454 U/L High 45-117 [facility] Serum or plasma calcium megha urement (mass/volume)Ordered By: Rboe Zavala on 02-11-2024 Calcium [Mass/Vol] 8.9 mg/dL 8.5-10.1 [facility] Serum or plasma creatinine m easurement (mass/volume)Ordered By: Robe Zavala on 02-11-2024 Creatinine [Mass/Vol] 0.75 mg/dL 0.70-1.30 [facility] Comment on above: The validity of the calculated GFR & GFRAA in patients over 70 years has not been determined. Clinical correlation is essential. Serum or plasma iron saturat ion measurement (mass fraction)Ordered By: Robe Zavala on 02-11-2024 Iron saturation [Mass fraction] 23.8 % 15.0-55.0 [facility] Serum or plasma urea nitroge n measurement (mass/volume)Ordered By: Robe Zavala on 02-11-2024 Urea nitrogen [Mass/Vol] 10 mg/dL 7-18 [facility] Sodium levelOrdered By: Dashawn Zavala on 02-11-2024 Sodium [Moles/Vol] 137 mmol/L 136-145 [facility] TIBCOrdered By: Robe benavides on 02-11-2024 Total Iron Binding Capacity 341 ug/dL 250-450 [facility] Total proteinOrdered By: Victor Hugo Zavala on 02-11-2024 Protein [Mass/Vol] 7.1 g/dL 6.4-8.2 [facility] White blood cell (WBC) count Ordered By: Robe Zavala on 02-11-2024 WBC (Bld) [#/Vol] 6.4 10*3/uL 4.4-11.0 [facility] MR Abdomen WO and W contrast Matthew [...] in the liver or biliary ductal system. [facility] Radiology Study observation (narrative) [facility] MR Abdomen WO and W contrast IVOrdered By: Uriel John on 01-24-2024 [facility] Work Phone: MRI ABDOMEN WITH AND WITHOUT CONTRASTon 01-24-2024 MRI ABDOMEN WITH AND WITHOUT CONTRAST Normal [facility] MRI ABDOMEN/ABDOMEN-PELVIS ( INTERPRETATION - OUTSIDE [...] pericholecystic fluid at the fundus versus artifact. [facility] Radiology Study observation (narrative) [facility] MRI ABDOMEN/ABDOMEN-PELVIS ( INTERPRETATION - OUTSIDE IMAGE)Ordered By: Leida Reyna on 12-29-2023 [facility] Work Phone: BASIC METABOLIC PANELon 12-01 Anion gap [Moles/Vol] 15 mmol/L 7 - 17 mmol/L [facility] Calcium [Mass/Vol] 9.1 mg/dL 8.6 - 10. 5 mg/dL [facility] Chloride [Moles/Vol] 103 mmol/L 98 - 10 8 mmol/L [facility] CO2 [Moles/Vol] 25 mmol/L 21 - 31 mmol/L [facility] Creatinine [Mass/Vol] 0.65 mg/dL Low 0.70 - 1.30 mg/dL [facility] eGFR, CKD-EPI, Male - PINF [facility] Comment on above: Reported eGFR is bas ed on the CKD-EPI 2020 equation using creatinine, age, and sex. Glucose [Mass/Vol] 58 mg/dL Low 70 - 99 mg/dL [facility] Osmolality Calc [Osmolality] 289 [facility] Potassium [Moles/Vol] 4.3 mmol/L 3.5 - 5.0 mmol/L [facility] Sodium [Moles/Vol] 139 mmol/L 135 - 145 mmol/L [facility] Urea nitrogen [Mass/Vol] 13 mg/dL 7 - 25 mg/dL [facility] Urea nitrogen/Creatinine [Mass ratio] 20 mg/mg [facility] CA 19-9Ordered By: Ysabel Martinez on 12-23-2023 Cancer Ag 19-9 Qn U/mL NINF - 37. 00 U/mL [facility] Comment on above: This test was perfor med on the Right90 Immunoassay platform which is a 2-step sandwich chemiluminescent immunoassay. It is important to note that assays using different manufacturers and/or methods may not be comparable. Interpretation and review of laboratory results Normal [facility] Chronic hepatitis differenti ation between hepatitis B and C virus panelon 12-23-2023 HBV core IgG+IgM Ql (S) Negative Negative [facility] HBV surface Ab IA Ql (S) Negative Negative [facility] HBV surface Ag Ql (S) Negative Negative [facility] HCV Ab Ql (S) Negative Negative [facility] FERRITINon 12-23-2023 Ferritin [Mass/Vol] 123.8 ng/mL 10.5 - 3 07.3 ng/mL [facility] Interpretation and review of laboratory results Normal [facility] HEPATIC FUNCTION PANELon Albumin [Mass/Vol] 3.6 g/dL 3.5 - 5.0 g/dL [facility] ALP [Catalytic activity/Vol] 400 U/L High 32 - 126 U/L [facility] ALT [Catalytic activity/Vol] 77 U/L High 10 - 52 U/L [facility] AST [Catalytic activity/Vol] 124 U/L High 10 - 39 U/L [facility] Bilirubin [Mass/Vol] 5.0 mg/dL High NINF - 1.5 mg/dL [facility] Bilirubin.direct [Mass/Vol] 3.0 mg/dL High NINF - 0.3 mg/dL [facility] Protein [Mass/Vol] 6.1 g/dL Low 6.4 - 8.3 g/dL [facility] HEPATITIS A AB, TOTAL (IGG+I GM)Ordered By: Edgar Matta on 12-23-2023 HAV IgG+IgM Ql (S) Positive Abnormal Negative [facility] Interpretation and review of laboratory results Abnormal [facility] HEPATITIS A IGM ABon 024 HAV IgM IA Ql Negative Negative [facility] IMMUNOGLOBULINS IGG IGA IGMo n 12-23-2023 IgA [Mass/Vol] 568 mg/dL High 66 - 433 mg/dL [facility] IgG [Mass/Vol] 858 mg/dL 600 - 1714 mg/dL [facility] IgM [Mass/Vol] 159 mg/dL 45 - 281 mg/dL [facility] IRON/IRON BINDING/TRANSFERRI Non 12-23-2023 Interpretation and review of laboratory results Normal [facility] Iron [Mass/Vol] 84 ug/dL [facility] Iron binding capacity [Mass/Vol] 308 [facility] Iron saturation [Mass fraction] 27 % 20 - 55 % [facility] Transferrin [Mass/Vol] 246 mg/dL 200 - 400 mg/dL [facility] No Panel Informationon 12-22 Interpretation and review of laboratory results Normal [facility] Interpretation and review of laboratory results Abnormal [facility] PROTIME-INRon 12-23-2023 INR Coag (Bld) [Relative time] 1.3 {INR} High 0.9 - 1.1 [facility] Interpretation and review of laboratory results Abnormal [facility] PT Coag (PPP) [Time] 16.6 s High [facility] Hemoglobin (Reticulocytes) [ Entitic mass]Ordered By: Robe Zavala on 05-14-2023 Reticulocyte Hemoglobin Equivalent 37.0 pg High 30-35 [facility] Immature reticulocyte fracti onOrdered By: Robe Zavala on 05-14-2023 Immature Reticulocyte Fraction 11.30 % 3.00-15.90 [facility] Reticulocyte hemoglobin equi valent (RET-He) measurementOrdered By: Robe Zavala on 05-14-2023 Hemoglobin (Reticulocytes) [Entitic mass] 37.0 pg High 30-35 [facility] Reticulocytes Auto (Bld) [#/ Vol]Ordered By: Robe Zavala on 05-14-2023 Reticulocyte Count 1.02 % 0.5-1.5 [facility] Reticulocytes/100 RBC (Bld) 1.02 % 0.5-1.5 [facility] Serum or plasma carcinoembry onic antigen measurement (mass/volume)Ordered By: Robe Zavala on 05-14-2023 Carcinoembryonic Ag [Mass/Vol] 3.1 ng/mL 0.0-4.7 [facility] Absolute lymphocyte countOrd ered By: Julio Hanson on 03-31-2023 Lymphocytes Auto (Unsp spec) [#/Vol] 0.86 10*3/uL 0.83-4.51 [facility] [facility] Autom[facility] count a s percentage of total leukocytesOrdered By: Julio Hanson on 03-31-2023 Lymphocytes/100 WBC Auto (Unsp spec) 15.9 % 19-41 [facility] Basophil percentageOrdered B y: Julio Hanson on 03-31-2023 Ammonia (P) [Moles/Vol] 46.0 umol/L 11-32 [facility] Basophils/100 WBC (Bld) 0.7 % 0-1 [facility] Bilirubin [Mass/Vol] 2.10 mg/dL 0.20-1.00 [facility] Comment on above: For patients on eltr ombopag therapy, use of Dimension [place] TBIL is not recommended. Chloride [Moles/Vol] 107 mmol/L 98-107 [facility] Cholesterol [Mass/Vol] 225 mg/dL <200 [facility] Comment on above: <200 mg/dL Desirable 200-240 mg/dL Borderline >240 mg/dL High Risk Eosinophils/100 WBC (Bld) 0.0 % 0-5 [facility] Glucose [Mass/Vol] 88 mg/dL 74-106 [facility] Hemoglobin (Bld) [Mass/Vol] 11.1 g/dL 13.0-16.5 [facility] LDH [Catalytic activity/Vol] 206 U/L 87-241 [facility] Monocytes/100 WBC (Bld) 9.4 % 0-10 [facility] Neutrophils (Bld) [#/Vol] 4.0 10*3/uL 2.0-7.7 [facility] Neutrophils/100 WBC (Bld) 73.4 % 47-70 [facility] Potassium [Moles/Vol] 4.1 mmol/L 3.5-5.1 [facility] Protein [Mass/Vol] 7.1 g/dL 6.4-8.2 [facility] Sodium [Moles/Vol] 137 mmol/L 136-145 [facility] Triglyceride [Mass/Vol] 93 mg/dL <199 [facility] Comment on above: The drugs N-Acetylcy steine and Metamizole may falsely depress this assay.Serum Triglycerides Reference Interval Normal <150 mg/dL Borderline high 150 - 199 mg/dL High 200 - 499 mg/dL Very High > or = 500 mg/dL WBC (Bld) [#/Vol] 5.4 10*3/uL 4.4-11.0 [facility] Determination of erythrocyte mean corpuscular volume (MCV)Ordered By: Julio Hanson on 03-31-2023 MCV (RBC) [Entitic vol] 96.3 fL 80-94 [facility] Erythrocyte distribution wid th ratioOrdered By: Julioalisha Hanson on 03-31-2023 Erythrocyte distribution width (RBC) [Ratio] 15.9 % 11.6-14.6 [facility] Erythrocyte distribution wid th standard deviationOrdered By: Julio Hanson on 03-31-2023 Erythrocyte distribution width (RBC) [Entitic vol] 55.6 fL 35.1-43.9 [facility] Erythrocyte sedimentation ra teOrdered By: Julio Hanson on 03-31-2023 ESR (Bld) [Velocity] 32 mm/h 0-20 [facility] HIV 1 and HIV-2 antibody ass ay with HIV-1 p24 antigen detectionOrdered By: Julio Hanson on 03-31-2023 HIV 1+2 Ab+HIV1 p24 Ag IA Ql Non-Reactive Nonreactive [facility] Hematocrit Auto (Bld) [Volum e fraction]Ordered By: Julio Hanson on 03-31-2023 Hematocrit (Bld) [Volume fraction] 33.8 % 40-54 [facility] High density lipoprotein (HD L) measurementOrdered By: Julio Hanson on 03-31-2023 Cholesterol in HDL (Body fld) [Mass/Vol] 57 mg/dL >40 [facility] Comment on above: The drugs N-Acetylcy steine and Metamizole may falsely depress this assay. Reference Range HDL <40 mg/dL Low HDL Cholesterol HDL >or= 60 mg/dL High HDL Cholesterol Immature granulocytes/100 WB C Auto (Bld)Ordered By: Julio Hanson on 03-31-2023 Immature granulocytes/100 WBC (Bld) 0.600 % 0.0-0.9 [facility] Comment on above: IG% - Immature Granu locytes (promyelocytes, myelocytes and metamyelocytes) > 1% indicates that a LEFT SHIFT is Present. International normalized rat io (INR) calculationOrdered By: Julio Hanson on 03-31-2023 INR Coag (PPP) [Relative time] 1.2 {INR} [facility] Laboratory - Chemistry and C hemistry - challengeOrdered By: Julio Hanson on 03-31-2023 Albumin/Globulin [Mass ratio] 0.8 {ratio} 0.9-2.4 [facility] ALP [Catalytic activity/Vol] 727 U/L 45-117 [facility] ALT [Catalytic activity/Vol] 98 U/L 16-61 [facility] CO2 [Moles/Vol] 25.0 mmol/L 21.0-32.0 [facility] Cobalamin (Vitamin B12) [Mass/Vol] 721 pg/mL 211-911 [facility] Ferritin [Mass/Vol] 99 ng/mL 26-388 [facility] Globulin (S) [Mass/Vol] 3.9 g/dL 2.2-4.2 [facility] Urea nitrogen/Creatinine [Mass ratio] 22.7 mg/mg 10-20 [facility] Laboratory - CoagulationOrde red By: Julio Hanson on 03-31-2023 PT Coag (PPP) [Time] 15.6 s 11.7-14.9 [facility] Laboratory - Hematology and Cell countsOrdered By: Julio Hanson on 03-31-2023 MCH (RBC) [Entitic mass] 31.6 pg 27.0-32.0 [facility] MCHC (RBC) [Mass/Vol] 32.8 g/dL 32-36 [facility] Nucleated RBC/100 WBC (Bld) [Ratio] 0 % 0-5 [facility] Platelets (Bld) [#/Vol] 281 10*3/uL 150-450 [facility] Low density lipoprotein (LDL ) cholesterol measurementOrdered By: Julio Hanson on 03-31-2023 Cholesterol in LDL (Body fld) [Moles/Vol] 149 mg/dL 0-130 [facility] No Panel InformationOrdered By: Julio Hanson on 01-30-2024 C-Reactive Protein Extended Range 6.45 mg/L 0.0-3.0 [facility] Comment on above: C-Reactive Protein ( CRP) provides useful information for thediagnosis, therapy and monitoring of inflammatory processesand associated diseases. For the evaluation of Relative Riskfor Cardiovascular Disease, a High Sensitivity CRP (HSCRP)should be ordered. Estimated GFR (MDRD) Amer 137 mL/min >60 [facility] Comment on above: GFR Calc Estimated GFR (MDRD) Non-Af Amer 113 mL/min >60 [facility] Comment on above: Non- GFR Calc Free Triiodothyronine (T3) pg/dL 2.6 pg/mL 2.18-3.98 [facility] Total Iron Binding Capacity 308 ug/dL 250-450 [facility] Platelet mean volume Randall-Ec ker (Bld) [Entitic vol]Ordered By: Julio Hanson on 03-31-2023 Platelet mean volume (Bld) [Entitic vol] 11.0 fL 6.2-12.0 [facility] RBC Auto (Bld) [#/Vol]Ordere d By: Julio Hanson on 03-31-2023 RBC (Bld) [#/Vol] 3.51 10*6/uL 4.6-6.2 [facility] Serum or plasma calcium megha urement (mass/volume)Ordered By: Julio Hanson on 03-31-2023 Calcium [Mass/Vol] 9.0 mg/dL 8.5-10.1 [facility] Serum or plasma creatinine m easurement (mass/volume)Ordered By: Julio Hanson on 03-31-2023 Creatinine [Mass/Vol] 0.75 mg/dL 0.70-1.30 [facility] Comment on above: The validity of the calculated GFR & GFRAA in patients over 70 years has not been determined. Clinical correlation is essential. Serum or plasma thyroid stim ulating hormone (TSH) measurement (units/volume)Ordered By: Julio Hanson on 03-31-2023 TSH Qn 1.06 uIU/mL 0.358-3.74 [facility] Serum or plasma urea nitroge n measurement (mass/volume)Ordered By: Julio Hanson on 03-31-2023 Urea nitrogen [Mass/Vol] 17 mg/dL 7-18 [facility] Thin prep Papanicolaou smear with manual screeningOrdered By: Julio Hanson on 03-31-2023 Thin prep Papanicolaou smear with manual screening 3.2 g/dL 3.2-5.0 [facility] Thin prep Papanicolaou smear with manual screening 110 U/L 15-37 [facility] Thin prep Papanicolaou smear with manual screening 5 5-15 [facility] Thin prep Papanicolaou smear with manual screening 1.30 ng/dL 0.76-1.46 [facility] Very low density lipoprotein (VLDL) cholesterol measurementOrdered By: Julio Hanson on 03-31-2023 Cholesterol in VLDL Calc [Moles/Vol] 19 mg/dL 5-40 [facility] Whole blood hemoglobin A1c/t otal hemoglobin ratio (mass fraction)Ordered By: Julio Hanson on 03-31-2023 HbA1c (Bld) [Mass fraction] 5.1 % 3.8-5.6 [facility] Comment on above: Normal < 5.7 % Predi abetic 5.7 - 6.4 % Diabetic >or= 6.5 % Please note range changes. POUCHOSCOPYon 02-09-2023 [facility] Gastroenterology Patient Name: Jc Dunaway Procedure Date: 02/09/2023 7:42 AM Date of : 1965 Admit Type: Outpatient Age: 57 Room: [place] [address] Gender: Male Note Status: Finalized Attending MD: Miroslava Joiner MD, [id number] Procedure: Pouchoscopy Indications: Follow-up of chronic ulcerative [...] by the physician, the nurse and the brim ironer hand in the procedure room at 08:36 [...] the (more content not included)... LAB, [facility] Radiology Study observation (narrative) [facility] Absolute lymphocyte countOrd ered By: Robe Zavala on 01-06-2023 Lymphocytes Auto (Unsp spec) [#/Vol] 1.30 10*3/uL 0.83-4.51 [facility] Basophil percentageOrdered B y: Robe Zavala on 01-06-2023 Basophils/100 WBC (Bld) 1.4 % 0-1 [facility] Bilirubin [Mass/Vol] 1.30 mg/dL 0.20-1.00 [facility] Comment on above: For patients on eltr ombopag therapy, use of Dimension [place] TBIL is not recommended. Chloride [Moles/Vol] 109 mmol/L 98-107 [facility] Eosinophils/100 WBC (Bld) 0.2 % 0-5 [facility] Glucose [Mass/Vol] 91 mg/dL 74-106 [facility] Neutrophils (Bld) [#/Vol] 3.2 10*3/uL 2.0-7.7 [facility] Neutrophils/100 WBC (Bld) 61.1 % 47-70 [facility] Potassium [Moles/Vol] 3.9 mmol/L 3.5-5.1 [facility] Protein [Mass/Vol] 7.0 g/dL 6.4-8.2 [facility] Sodium [Moles/Vol] 138 mmol/L 136-145 [facility] WBC (Bld) [#/Vol] 5.2 10*3/uL 4.4-11.0 [facility] Blood erythrocytes count (nu mber/volume)Ordered By: Robe Zavala on 01-06-2023 RBC (Bld) [#/Vol] 3.57 10*6/uL 4.6-6.2 [facility] Blood hemoglobin measurement (mass/volume)Ordered By: Robe Zavala on 01-06-2023 Hemoglobin (Bld) [Mass/Vol] 11.7 g/dL 13.0-16.5 [facility] Blood lymphocytes/100 leukoc ytesOrdered By: Robe Zavala on 01-06-2023 Lymphocytes/100 WBC (Bld) 25.1 % 19-41 [facility] Blood monocytes/100 leukocyt esOrdered By: Robe Zavala on 01-06-2023 Monocytes/100 WBC (Bld) 11.8 % 0-10 [facility] Blood platelet mean volumeOr dered By: Robe Zavala on 01-06-2023 Platelet mean volume (Bld) [Entitic vol] 11.1 fL 6.2-12.0 [facility] Determination of erythrocyte mean corpuscular volume (MCV)Ordered By: Robe Zavala on 01-06-2023 MCV (RBC) [Entitic vol] 100.6 fL 80-94 [facility] Hematocrit Auto (Bld) [Volum e fraction]Ordered By: Robe Zavala on 01-06-2023 Hematocrit (Bld) [Volume fraction] 35.9 % 40-54 [facility] Iron measurement (mass/mass) [facility] Iron (Unsp spec) [Mass/Mass] 84 ug/dL 65-175 [facility] Laboratory - Chemistry and C hemistry - challengeOrdered By: [facility] Herman on 01-06-2023 ALP [Catalytic activity/Vol] 611 U/L 45-117 [facility] ALT [Catalytic activity/Vol] 91 U/L 16-61 [facility] CO2 [Moles/Vol] 26.0 mmol/L 21.0-32.0 [facility] Cobalamin (Vitamin B12) [Mass/Vol] 585 pg/mL 211-911 [facility] Globulin (S) [Mass/Vol] 3.9 g/dL 2.2-4.2 [facility] Urea nitrogen/Creatinine [Mass ratio] 20.4 mg/mg 10-20 [facility] Laboratory - Hematology and Cell countsOrdered By: Robe Zavala on 01-06-2023 Erythrocyte distribution width (RBC) [Entitic vol] 54.7 fL 35.1-43.9 [facility] Erythrocyte distribution width (RBC) [Ratio] 14.6 % 11.6-14.6 [facility] Immature granulocytes/100 WBC (Bld) 0.400 % 0.0-0.9 [facility] Comment on above: IG% - Immature Granu locytes (promyelocytes, myelocytes and metamyelocytes) > 1% indicates that a LEFT SHIFT is Present. MCH (RBC) [Entitic mass] 32.8 pg 27.0-32.0 [facility] Nucleated RBC/100 WBC (Bld) [Ratio] 0 % 0-5 [facility] MCHC Auto (RBC) [Mass/Vol]Or dered By: Robe Zavala on 01-06-2023 MCHC (RBC) [Mass/Vol] 32.6 g/dL 32-36 [facility] No Panel InformationOrdered By: Robe Zavala on 01-06-2023 Estimated Creatinine Clearance Calc 70.86 ml/min [facility] Estimated GFR (MDRD) Amer 140 mL/min >60 [facility] Comment on above: GFR Calc Estimated GFR (MDRD) Non-Af Amer 116 mL/min >60 [facility] Comment on above: Non- GFR Calc Total Iron Binding Capacity 313 ug/dL 250-450 [facility] 585 pg/mL 211-911 [facility] Platelets bldOrdered By: Victor Hugo Zavala on 01-06-2023 Platelets (Bld) [#/Vol] 293 10*3/uL 150-450 [facility] Serum or plasma albumin megha urement (mass/volume)Ordered By: Robe Zavala on 01-06-2023 Albumin [Mass/Vol] 3.1 g/dL 3.2-5.0 [facility] Serum or plasma albumin/glob ulin mass ratioOrdered By: Robe Zavala on 01-06-2023 Albumin/Globulin [Mass ratio] 0.8 {ratio} 0.9-2.4 [facility] Serum or plasma calcium megha urement (mass/volume)Ordered By: Robe Zavala on 01-06-2023 Calcium [Mass/Vol] 8.5 mg/dL 8.5-10.1 [facility] Serum or plasma carcinoembry onic antigen measurement (mass/volume)Ordered By: Robe Zavala on 01-06-2023 Carcinoembryonic Ag [Mass/Vol] 3.1 ng/mL 0.0-4.7 [facility] Comment on above: Nonsmokers <3.9 Smok ers <5.6[employer] Electrochemiluminescence Immunoassay(ECLIA)Values obtained with different assay methods or kitscannot be used interchangeably. Results cannot beinterpreted as absolute evidence of the presence orabsence of malignant disease.Performed at: [facility] [id number] Director: Red Graham PhD, Phone: [phone] Serum or plasma creatinine m easurement (mass/volume)Ordered By: Robe Zavala on 01-06-2023 Creatinine [Mass/Vol] 0.74 mg/dL 0.70-1.30 [facility] Comment on above: The validity of the calculated GFR & GFRAA in patients over 70 years has not been determined. Clinical correlation is essential. Serum or plasma ferritin timmy surement (mass/volume)Ordered By: [facility] on 01-06-2023 Ferritin [Mass/Vol] 163 ng/mL 26-388 [facility] Serum or plasma iron saturat ion measurement (mass fraction)Ordered By: Robe Zavala on 01-06-2023 Iron saturation [Mass fraction] 26.8 % 15.0-55.0 [facility] Serum or plasma urea nitroge n measurement (mass/volume)Ordered By: Robe Zavala on 01-06-2023 Urea nitrogen [Mass/Vol] 15 mg/dL 7-18 [facility] Thin prep Papanicolaou smear with manual screeningOrdered By: [facility] Herman on 01-06-2023 Thin prep Papanicolaou smear with manual screening 96 U/L 15-37 [facility] Thin prep Papanicolaou smear with manual screening 3 5-15 [facility] Basophil percentageOrdered B y: Robe Zavala on 10-07-2022 LDH [Catalytic activity/Vol] 189 U/L 87-241 [facility] Direct bilirubinOrdered By: [facility] on 10-07-2022 Bilirubin.direct [Mass/Vol] 1.58 mg/dL High 0.00-0.30 [facility] PotassiumOrdered By: [facility] on 10-07-2022 Potassium 189 U/L 87-241 [facility] Serum or plasma non-glucuron idated bilirubin measurement (mass/volume)Ordered By: Robe Zavala on 10-07-2022 Bilirubin.indirect [Mass/Vol] 0.40 mg/dL 0.00-1.00 [facility] Hemoglobin in reticulocytes (mass per reticulocyte)Ordered By: [facility] on 09-09-2022 Hemoglobin (Reticulocytes) [Entitic mass] 34.4 pg 30-35 [facility] No Panel InformationOrdered By: [facility] on 09-09-2022 Immature Reticulocyte Fraction 3.70 % 3.00-15.90 [facility] Reticulocyte Count 0.57 % 0.5-1.5 [facility] Absolute lymphocyte counton 06-17-2021 Lymphocytes Auto (Unsp spec) [#/Vol] 0.54 10*3/uL 0.83-4.51 [facility] Work Phone: Basophil percentageon 2021 Basophils/100 WBC (Bld) 0.4 % 0-1 [facility] Work Phone: Eosinophils/100 WBC (Bld) 0.0 % 0-5 [facility] Work Phone: Neutrophils (Bld) [#/Vol] 12.6 10*3/uL 2.0-7.7 [facility] Work Phone: Neutrophils/100 WBC (Bld) 89.8 % 47-70 [facility] Work Phone: WBC (Bld) [#/Vol] 14.0 10*3/uL 4.4-11.0 [facility] Work Phone: [phone] Blood erythrocytes count (nu mber/volume)on 06-17-2021 RBC (Bld) [#/Vol] 3.94 10*6/uL 4.6-6.2 [facility] Work Phone: Blood hemoglobin measurement (mass/volume)on 06-17-2021 Hemoglobin (Bld) [Mass/Vol] 11.9 g/dL 13.0-16.5 [facility] Work Phone: Blood lymphocytes/100 leukoc yteson 06-17-2021 Lymphocytes/100 WBC (Bld) 3.9 % 19-41 [facility] Work Phone: Blood manual differential co mment interpretation (narrative result)on 06-17-2021 Manual differential comment Deandre (Bld) [Interp] SCANNED [facility] Comment on above: LYMPHOPENIA NOTED1+ ANISOCYTOSIS Blood monocytes/100 leukocyt eson 06-17-2021 Monocytes/100 WBC (Bld) 5.3 % 0-10 [facility] Work Phone: Blood platelet mean volumeon 06-17-2021 Platelet mean volume (Bld) [Entitic vol] 10.0 fL 6.2-12.0 [facility] Work Phone: Determination of erythrocyte mean corpuscular volume (MCV)on 06-17-2021 MCV (RBC) [Entitic vol] 89.8 fL 80-94 [facility] Work Phone: Hematocrit Auto (Bld) [Volum e fraction]on 06-17-2021 Hematocrit (Bld) [Volume fraction] 35.4 % 40-54 [facility] Work Phone: Iron measurement (mass/mass) on 06-17-2021 Iron (Unsp spec) [Mass/Mass] 15 ug/dL 65-175 [facility] Work Phone: Laboratory - Hematology and Cell countson 06-17-2021 Erythrocyte distribution width (RBC) [Entitic vol] 66.4 fL 35.1-43.9 [facility] Work Phone: Erythrocyte distribution width (RBC) [Ratio] 19.9 % 11.6-14.6 [facility] Work Phone: Immature granulocytes/100 WBC (Bld) 0.600 % 0.0-0.9 [facility] Work Phone: Comment on above: IG% - Immature Granu locytes (promyelocytes, myelocytes and metamyelocytes) > 1% indicates that a LEFT SHIFT is Present. MCH (RBC) [Entitic mass] 30.2 pg 27.0-32.0 [facility] Work Phone: Nucleated RBC/100 WBC (Bld) [Ratio] 0 % 0-5 [facility] Work Phone: MCHC Auto (RBC) [Mass/Vol]on 06-17-2021 MCHC (RBC) [Mass/Vol] 33.6 g/dL 32-36 [facility] Work Phone: Manual differential comment Deandre (Bld) [Interp]on 06-17-2021 Differential Comment SCANNED [facility] Comment on above: LYMPHOPENIA NOTED1+ ANISOCYTOSIS No Panel Informationon 06-17 Total Iron Binding Capacity 240 ug/dL 250-450 [facility] Work Phone: Platelets bldon 06-17-2021 Platelets (Bld) [#/Vol] 411 10*3/uL 150-450 [facility] Work Phone: Serum or plasma carcinoembry onic antigen measurement (mass/volume)on 06-17-2021 Carcinoembryonic Ag [Mass/Vol] 1.4 ng/mL [facility] Work Phone: Comment on above: Nonsmokers <3.9 Smok ers <5.6[employer] Electrochemiluminescence Immunoassay(ECLIA)Values obtained with different assay methods or kitscannot be used interchangeably. Results cannot beinterpreted as absolute evidence of the presence orabsence of malignant disease.Performed at: [address] [id number] Director: Red Graham PhD, Phone: [phone] Serum or plasma ferritin timmy surement (mass/volume)on 06-17-2021 Ferritin [Mass/Vol] 561 ng/mL 26-388 [facility] Work Phone: Serum or plasma iron saturat ion measurement (mass fraction)on 06-17-2021 Iron saturation [Mass fraction] 6.2 % 15.0-55.0 [facility] Work Phone: CALCIUMon 06-06-2021 Calcium [Mass/Vol] 8.6 mg/dL 8.6 - 10. 5 mg/dL [facility] CBC,PLATELETSon 06-06-2021 Erythrocyte distribution width (RBC) [Ratio] 23.7 % High 10.9 - 14.3 % [facility] Hematocrit (Bld) [Volume fraction] 35.4 % Low 39.6 - 48.8 % [facility] Hemoglobin (Bld) [Mass/Vol] 11.8 g/dL Low 13.4 - 16.8 g/dL [facility] Interpretation and review of laboratory results Abnormal [facility] MCH (RBC) [Entitic mass] 29.3 pg 26.1 - 33.3 pg [facility] MCHC (RBC) [Mass/Vol] 33.3 g/dL 31.9 - 36.5 g/dL [facility] MCV (RBC) [Entitic vol] 87.8 fL 79.0 - 94.5 fL [facility] Platelet mean volume (Bld) [Entitic vol] 11.8 fL 8.7 - 12.3 fL [facility] Platelets (Bld) [#/Vol] 222 10*3/uL 146 - 337 K/uL [facility] RBC (Bld) [#/Vol] 4.03 10*6/uL Low [facility] WBC (Bld) [#/Vol] 6.72 10*3/uL 3.73 - 10. 10 K/uL [facility] CHEM 7 (LYTES,BUN,CREA,GLUC) Ordered By: Darrell Lopez on 06-06-2021 Anion gap [Moles/Vol] 11 mmol/L 7 - 17 mmol/L [facility] Chloride [Moles/Vol] 107 mmol/L 98 - 10 8 mmol/L [facility] CO2 [Moles/Vol] 25 mmol/L 21 - 31 mmol/L [facility] Creatinine [Mass/Vol] 0.67 mg/dL Low 0.70 - 1.30 mg/dL [facility] GFR/1.73 sq M.predicted CKD-EPI (S/P/Bld) [Vol rate/Area] >90 >=60 mL/min/1.73m2 [facility] Comment on above: Reported eGFR is bas ed on the CKD-EPI 2020 equation using creatinine, age, and sex. Glucose [Mass/Vol] 88 mg/dL 70 - 99 mg/dL [facility] Osmolality Calc [Osmolality] 290 [facility] Potassium [Moles/Vol] 3.4 mmol/L Low 3.5 - 5.0 mmol/L [facility] Sodium [Moles/Vol] 140 mmol/L 135 - 145 mmol/L [facility] Urea nitrogen [Mass/Vol] 11 mg/dL 7 - 25 mg/dL [facility] Urea nitrogen/Creatinine [Mass ratio] 16 mg/mg [facility] MAGNESIUMon 06-06-2021 Magnesium [Mass/Vol] 1.9 mg/dL 1.6 - 2 .6 mg/dL [facility] No Panel Informationon 06-06 Interpretation and review of laboratory results Abnormal [facility] Interpretation and review of laboratory results Normal [facility] PHOSPHATE, INORGANICon 06-06 Phosphate [Mass/Vol] 1.7 mg/dL Low 2.2 - 4 .6 mg/dL [facility] CALCIUMon 06-05-2021 Calcium [Mass/Vol] 8.9 mg/dL 8.6 - 10. 5 mg/dL [facility] CBC,PLATELETSon 06-05-2021 Erythrocyte distribution width (RBC) [Ratio] 23.7 % High 10.9 - 14.3 % [facility] Hematocrit (Bld) [Volume fraction] 36.2 % Low 39.6 - 48.8 % [facility] Hemoglobin (Bld) [Mass/Vol] 12.1 g/dL Low 13.4 - 16.8 g/dL [facility] Interpretation and review of laboratory results Abnormal [facility] MCH (RBC) [Entitic mass] 29.0 pg 26.1 - 33.3 pg [facility] MCHC (RBC) [Mass/Vol] 33.4 g/dL 31.9 - 36.5 g/dL [facility] MCV (RBC) [Entitic vol] 86.8 fL 79.0 - 94.5 fL [facility] Platelet mean volume (Bld) [Entitic vol] 11.2 fL 8.7 - 12.3 fL [facility] Platelets (Bld) [#/Vol] 260 10*3/uL 146 - 337 K/uL [facility] RBC (Bld) [#/Vol] 4.17 10*6/uL Low [facility] WBC (Bld) [#/Vol] 8.83 10*3/uL 3.73 - 10. 10 K/uL [facility] CHEM 7 (LYTES,BUN,CREA,GLUC) on 06-05-2021 Anion gap [Moles/Vol] 13 mmol/L 7 - 17 mmol/L [facility] Chloride [Moles/Vol] 105 mmol/L 98 - 10 8 mmol/L [facility] CO2 [Moles/Vol] 23 mmol/L 21 - 31 mmol/L [facility] Creatinine [Mass/Vol] 0.70 mg/dL 0.70 - 1.30 mg/dL [facility] GFR/1.73 sq M.predicted CKD-EPI (S/P/Bld) [Vol rate/Area] >90 >=60 mL/min/1.73m2 [facility] Comment on above: Reported eGFR is bas ed on the CKD-EPI 2020 equation using creatinine, age, and sex. Glucose [Mass/Vol] 136 mg/dL High 70 - 99 mg/dL [facility] Interpretation and review of laboratory results Abnormal [facility] Osmolality Calc [Osmolality] 289 [facility] Potassium [Moles/Vol] 4.5 mmol/L 3.5 - 5.0 mmol/L [facility] Sodium [Moles/Vol] 136 mmol/L 135 - 145 mmol/L [facility] Urea nitrogen [Mass/Vol] 14 mg/dL 7 - 25 mg/dL [facility] Urea nitrogen/Creatinine [Mass ratio] 20 mg/mg [facility] MAGNESIUMon 06-05-2021 Magnesium [Mass/Vol] 1.8 mg/dL 1.6 - 2 .6 mg/dL [facility] No Panel Informationon 06-05 Interpretation and review of laboratory results Normal [facility] PHOSPHATE, INORGANICon 06-05 Phosphate [Mass/Vol] 4.5 mg/dL 2.2 - 4 .6 mg/dL [facility] CARDIAC RHYTHM (SCANNED)on 0 06-04-2021 [facility] Laboratory - Microbiology an d Antimicrobial susceptibilityon 05-31-2021 SARS-CoV-2 (COVID-19) RNA JACKY+probe Ql (Unsp spec) Not detected Not Detect [facility] Work Phone: Comment on above: Normal [...] Auto (Unsp spec) [#/Vol] 0.83 10*3/uL 0.83-4.51 [facility] Work Phone: Basophil percentageon 2021 Basophils/100 WBC (Bld) 0.9 % 0-1 [facility] Work Phone: Bilirubin [Mass/Vol] 0.60 mg/dL 0.20-1.00 [facility] Work Phone: Comment on above: For patients on eltr ombopag therapy, use of [place] TBIL is not recommended. Chloride [Moles/Vol] 107 mmol/L 98-107 [facility] Work Phone: Eosinophils/100 WBC (Bld) 0.0 % 0-5 [facility] Work Phone: Glucose [Mass/Vol] 81 mg/dL 74-106 [facility] Work Phone: Comment on above: Please note revised GLUCOSE reference range effective 2017. Neutrophils (Bld) [#/Vol] 5.0 10*3/uL 2.0-7.7 [facility] Work Phone: Neutrophils/100 WBC (Bld) 75.9 % 47-70 [facility] Work Phone: Potassium [Moles/Vol] 4.2 mmol/L 3.5-5.1 [facility] Work Phone: Protein [Mass/Vol] 8.0 g/dL 6.4-8.2 [facility] Work Phone: Sodium [Moles/Vol] 135 mmol/L 136-145 [facility] Work Phone: WBC (Bld) [#/Vol] 6.5 10*3/uL 4.4-11.0 [facility] Work Phone: Blood erythrocytes count (nu mber/volume)on 03-13-2021 RBC (Bld) [#/Vol] 3.68 10*6/uL 4.6-6.2 [facility] Work Phone: Blood hemoglobin measurement (mass/volume)on 03-13-2021 Hemoglobin (Bld) [Mass/Vol] 8.8 g/dL 13.0-16.5 [facility] Work Phone: Blood lymphocytes/100 leukoc yteson 03-13-2021 Lymphocytes/100 WBC (Bld) 12.7 % 19-41 [facility] Work Phone: Blood monocytes/100 leukocyt eson 03-13-2021 Monocytes/100 WBC (Bld) 10.0 % 0-10 [facility] Work Phone: Blood platelet mean volumeon 03-13-2021 Platelet mean volume (Bld) [Entitic vol] 9.0 fL 6.2-12.0 [facility] Work Phone: Determination of erythrocyte mean corpuscular volume (MCV)on 03-13-2021 MCV (RBC) [Entitic vol] 77.7 fL 80-94 [facility] Work Phone: Hematocrit Auto (Bld) [Volum e fraction]on 03-13-2021 Hematocrit (Bld) [Volume fraction] 28.6 % 40-54 [facility] Work Phone: Iron measurement (mass/mass) on 03-13-2021 Iron (Unsp spec) [Mass/Mass] 53 ug/dL 65-175 [facility] Work Phone: Laboratory - Chemistry and C hemistry - challengeon 03-13-2021 ALP [Catalytic activity/Vol] 820 U/L 45-117 [facility] Work Phone: ALT [Catalytic activity/Vol] 76 U/L 16-61 [facility] Work Phone: CO2 [Moles/Vol] 22.0 mmol/L 21.0-32.0 [facility] Work Phone: Cobalamin (Vitamin B12) [Mass/Vol] 663 pg/mL 211-911 [facility] Work Phone: Globulin (S) [Mass/Vol] 4.9 g/dL 2.2-4.2 [facility] Work Phone: Urea nitrogen/Creatinine [Mass ratio] 27.0 mg/mg 10-20 [facility] Work Phone: Laboratory - Hematology and Cell countson 03-13-2021 Erythrocyte distribution width (RBC) [Entitic vol] 48.3 fL 35.1-43.9 [facility] Work Phone: Erythrocyte distribution width (RBC) [Ratio] 17.4 % 11.6-14.6 [facility] Work Phone: Immature granulocytes/100 WBC (Bld) 0.500 % 0.0-0.9 [facility] Work Phone: Comment on above: IG% - Immature Granu locytes (promyelocytes, myelocytes and metamyelocytes) > 1% indicates that a LEFT SHIFT is Present. MCH (RBC) [Entitic mass] 23.9 pg 27.0-32.0 [facility] Work Phone: Nucleated RBC/100 WBC (Bld) [Ratio] 0 % 0-5 [facility] Work Phone: MCHC Auto (RBC) [Mass/Vol]on 03-13-2021 MCHC (RBC) [Mass/Vol] 30.8 g/dL 32-36 [facility] Work Phone: No Panel Informationon 03-13 Estimated GFR (MDRD) Amer 133 mL/min >60 [facility] Work Phone: Comment on above: GFR Calc Estimated GFR (MDRD) Non-Af Amer 110 mL/min >60 [facility] Work Phone: Comment on above: Non- GFR Calc Total Iron Binding Capacity 556 ug/dL 250-450 [facility] Work Phone: Platelets bldon 03-13-2021 Platelets (Bld) [#/Vol] 728 10*3/uL 150-450 [facility] Work Phone: Serum or plasma albumin megha urement (mass/volume)on 03-13-2021 Albumin [Mass/Vol] 3.1 g/dL 3.2-5.0 [facility] Work Phone: Serum or plasma albumin/glob ulin mass ratioon 03-13-2021 Albumin/Globulin [Mass ratio] 0.6 {ratio} 0.9-2.4 [facility] Work Phone: Serum or plasma calcium megha urement (mass/volume)on 03-13-2021 Calcium [Mass/Vol] 9.2 mg/dL 8.5-10.1 [facility] Work Phone: Serum or plasma carcinoembry onic antigen measurement (mass/volume)on 03-13-2021 Carcinoembryonic Ag [Mass/Vol] 2.0 ng/mL [facility] Work Phone: Comment on above: Nonsmokers <3.9 Smok ers <5.6[employer] Electrochemiluminescence Immunoassay(ECLIA)Values obtained with different assay methods or kitscannot be used interchangeably. Results cannot beinterpreted as absolute evidence of the presence orabsence of malignant disease.Performed at: [facility] [address] [id number] Director: Red Graham PhD, Phone: [phone] Serum or plasma creatinine m easurement (mass/volume)on 03-13-2021 Creatinine [Mass/Vol] 0.78 mg/dL 0.70-1.30 [facility] Work Phone: Comment on above: The validity of the calculated GFR & GFRAA in patients over 70 years has not been determined. Clinical correlation is essential. Serum or plasma ferritin timmy surement (mass/volume)on 03-13-2021 Ferritin [Mass/Vol] 8 ng/mL 26-388 [facility] Work Phone: Serum or plasma iron saturat ion measurement (mass fraction)on 03-13-2021 Iron saturation [Mass fraction] 9.5 % 15.0-55.0 [facility] Work Phone: Serum or plasma urea nitroge n measurement (mass/volume)on 03-13-2021 Urea nitrogen [Mass/Vol] 21 mg/dL 7-18 [facility] Work Phone: Thin prep Papanicolaou smear with manual screeningon 03-13-2021 Thin prep Papanicolaou smear with manual screening 79 U/L 15-37 [facility] Work Phone: Thin prep Papanicolaou smear with manual screening 6 5-15 [facility] Work Phone: Absolute lymphocyte counton 02-18-2021 Lymphocytes Auto (Unsp spec) [#/Vol] 0.22 10*3/uL 0.83-4.51 [facility] Work Phone: Basophil percentageon 2020 Bilirubin [Mass/Vol] 0.90 mg/dL 0.20-1.00 [facility] Work Phone: Comment on above: For patients on eltr ombopag therapy, use of [place] TBIL is not recommended. Chloride [Moles/Vol] 106 mmol/L 98-107 [facility] Work Phone: Eosinophils/100 WBC (Bld) 0.0 % 0-5 [facility] Work Phone: Glucose [Mass/Vol] 118 mg/dL 74-106 [facility] Work Phone: Comment on above: Fasting Glucose resu lt from 100 to 125 mg/dL suggests IMPAIRED HOMEOSTASIS per A.D.A. criteria.Please note revised GLUCOSE reference range effective 2017. Neutrophils (Bld) [#/Vol] 12.6 10*3/uL 2.0-7.7 [facility] Work Phone: Potassium [Moles/Vol] 4.8 mmol/L 3.5-5.1 [facility] Work Phone: Protein [Mass/Vol] 6.6 g/dL 6.4-8.2 [facility] Work Phone: Sodium [Moles/Vol] 139 mmol/L 136-145 [facility] Work Phone: WBC (Bld) [#/Vol] 13.7 10*3/uL 4.4-11.0 [facility] Work Phone: Blood erythrocytes count (nu mber/volume)on 02-18-2021 RBC (Bld) [#/Vol] 3.64 10*6/uL 4.6-6.2 [facility] Work Phone: Blood hemoglobin measurement (mass/volume)on 02-18-2021 Hemoglobin (Bld) [Mass/Vol] 9.2 g/dL 13.0-16.5 [facility] Work Phone: Blood lymphocytes/100 leukoc yteson 02-18-2021 Lymphocytes/100 WBC (Bld) 1.6 % 19-41 [facility] Work Phone: Blood manual differential co mment interpretation (narrative result)on 02-18-2021 Manual differential comment Deandre (Bld) [Interp] COMMENT [facility] Work Phone: Comment on above: LYMPHOPENIA NOTED Blood monocytes/100 leukocyt eson 02-18-2021 Monocytes/100 WBC (Bld) 5.0 % 0-10 [facility] Work Phone: Blood platelet mean volumeon 02-18-2021 Platelet mean volume (Bld) [Entitic vol] 10.1 fL 6.2-12.0 [facility] Work Phone: Determination of erythrocyte mean corpuscular volume (MCV)on 02-18-2021 MCV (RBC) [Entitic vol] 80.5 fL 80-94 [facility] Work Phone: Hematocrit Auto (Bld) [Volum e fraction]on 02-18-2021 Hematocrit (Bld) [Volume fraction] 29.3 % 40-54 [facility] Work Phone: Laboratory - Chemistry and C hemistry - challengeon 02-18-2021 ALP [Catalytic activity/Vol] 723 U/L 45-117 [facility] Work Phone: ALT [Catalytic activity/Vol] 55 U/L 16-61 [facility] Work Phone: CO2 [Moles/Vol] 28.0 mmol/L 21.0-32.0 [facility] Work Phone: Globulin (S) [Mass/Vol] 4.6 g/dL 2.2-4.2 [facility] Work Phone: Lipase [Catalytic activity/Vol] 70 U/L 73-393 [facility] Work Phone: Urea nitrogen/Creatinine [Mass ratio] 25.0 mg/mg 10-20 [facility] Work Phone: Laboratory - Hematology and Cell countson 02-18-2021 Basophils/100 WBC (Unsp spec) 0.3 % 0-1 [facility] Work Phone: Erythrocyte distribution width (RBC) [Entitic vol] 52.3 fL 35.1-43.9 [facility] Work Phone: Erythrocyte distribution width (RBC) [Ratio] 18.2 % 11.6-14.6 [facility] Work Phone: Immature granulocytes/100 WBC (Bld) 0.600 % 0.0-0.9 [facility] Work Phone: Comment on above: IG% - Immature Granu locytes (promyelocytes, myelocytes and metamyelocytes) > 1% indicates that a LEFT SHIFT is Present. MCH (RBC) [Entitic mass] 25.3 pg 27.0-32.0 [facility] Work Phone: Neutrophils/100 WBC (Bld) 92.5 % 47-70 [facility] Work Phone: Nucleated RBC/100 WBC (Bld) [Ratio] 0 % 0-5 [facility] Work Phone: MCHC Auto (RBC) [Mass/Vol]on 02-18-2021 MCHC (RBC) [Mass/Vol] 31.4 g/dL 32-36 [facility] Work Phone: No Panel Informationon 02-18 Estimated Creatinine Clearance Calc 61.76 ml/min [facility] Work Phone: Estimated GFR (MDRD) Amer 109 mL/min >60 [facility] Work Phone: Comment on above: GFR Calc Estimated GFR (MDRD) Non-Af Amer 90 mL/min >60 [facility] Work Phone: Comment on above: Non- GFR Calc Platelets bldon 02-18-2021 Platelets (Bld) [#/Vol] 625 10*3/uL 150-450 [facility] Work Phone: Serum or plasma albumin megha urement (mass/volume)on 02-18-2021 Albumin [Mass/Vol] 2.0 g/dL 3.2-5.0 [facility] Work Phone: Serum or plasma albumin/glob ulin mass ratioon 02-18-2021 Albumin/Globulin [Mass ratio] 0.4 {ratio} 0.9-2.4 [facility] Work Phone: Serum or plasma calcium megha urement (mass/volume)on 02-18-2021 Calcium [Mass/Vol] 8.4 mg/dL 8.5-10.1 [facility] Work Phone: Serum or plasma creatinine m easurement (mass/volume)on 02-18-2021 Creatinine [Mass/Vol] 0.92 mg/dL 0.70-1.30 [facility] Work Phone: Comment on above: The validity of the calculated GFR & GFRAA in patients over 70 years has not been determined. Clinical correlation is essential. Serum or plasma urea nitroge n measurement (mass/volume)on 02-18-2021 Urea nitrogen [Mass/Vol] 23 mg/dL 7-18 [facility] Work Phone: Thin prep Papanicolaou smear with manual screeningon 02-18-2021 Thin prep Papanicolaou smear with manual screening 39 U/L 15-37 [facility] Work Phone: Thin prep Papanicolaou smear with manual screening 5 5-15 [facility] Work Phone: Laboratory - Microbiology an d Antimicrobial susceptibilityon 02-08-2021 SARS-CoV-2 (COVID-19) RNA JACKY+probe Ql (Unsp spec) Not detected Not Detect [facility] Work Phone: Comment on above: Normal [...] Folate [Mass/Vol]on 01-01-20 Folate 20.40 ng/mL 3.1-55.4 [facility] Serum or plasma folate measu rement (mass/volume)on 12-31-2020 Folate [Mass/Vol] 20.40 ng/mL 3.1-55.[address] [facility] [address] ABD/PEL STONE PROTOCOLon 08-03-2020 CT ABD/PEL [...] of a chronic inflammatory process. Dictated by Pile Driver Operator Helper: Archana Malik DO I, Bj Moyer MD, have supervised the procedure and/or image review, and agree with the above interpretation and report. ---- Electronic Signature on File ---- Signed By: Bj Moyer MD [email or web address] Dictated: 08/03/2020 8:18 AM Signed: 08/03/2020 8:48 AM Reported By: BJ MOYER M.D. Signed By: BJ MOYER M.D. [facility] Vital Signs Date Time Vital Sign Value Performing Clinician Facility 01-11-2025 09:14-0500 Body height 167.[address] Olive Valera DO Work Phone: [phone](076)[phone] [address] 01-11-2025 09:14-0500 Body temperature 97.6 [degF] Dr. Olive Valera DO Work Phone: [phone])[phone] [place] [address] 01-11-2025 09:14-0500 Diastolic blood pressure 67 mm[Hg] Dr. Olive Valera DO Work Phone: 5(671)958-292274 [place] [address] 01-11-2025 09:14-0500 Heart rate 86 /min Dr. Olive Valera DO Work Phone: 1(412)[phone] [place] [address] 01-11-2025 09:14-0500 Respiratory rate 16 /min Dr. Olive Valera DO Work Phone: [phone])[phone] [place] [address] 01-11-2025 09:14-0500 SaO2% (BldA) [Mass fraction] 96 % Dr. Olive Valera DO Work Phone: 7([phone] [place] [address] 01-11-2025 09:14-0500 Systolic blood pressure 118 mm[Hg] Dr. Olive Valera DO Work Phone: 4([phone])[phone] [address] 01-04-2025 09:20-0500 Body mass index (BMI) [Ratio] 16 kg/m2 Dr. Olive Valera DO Work Phone: [facility] 01-04-2025 09:20-0500 Body weight [address] Olive Valera DO Work Phone: [facility] 12-31-2024 11:07-0400 Body temperature 99.1 [degF] Sonya Treviño MD, MPH Work Phone: [facility] 12-31-2024 11:07-0400 Diastolic blood pressure 68 mm[Hg] Sonya Treviño MD, MPH Work Phone: [phone](520)[phone] [address] 12-31-2024 11:07-0400 Heart rate 99 /min Sonya Treviño MD, MPH Work Phone: [facility] 12-31-2024 11:07-0400 Respiratory rate 12 /min Sonya Treviño MD, MPH Work Phone: 3(259)[phone] [place] [address] 12-31-2024 11:07-0400 SaO2% (BldA) [Mass fraction] 98 % Sonya Treviño MD, MPH Work Phone: [facility] 12-31-2024 11:07-0400 Systolic blood pressure 125 mm[Hg] Sonya Treviño MD, MPH Work Phone: [facility] 12-29-2024 16:21-0400 Body mass index (BMI) [Ratio] 15.49 kg/m2 Sonya Treviño MD, MPH Work Phone: [facility] 12-29-2024 16:21-0400 Body weight 43.55 kg Sonya Treviño MD, MPH Work Phone: [facility] 12-28-2024 09:09-0400 Body height 167.6 cm Sonya Treviño MD, MPH Work Phone: [facility] 12-21-2024 19:46-0400 Body temperature 100.2 [degF] Dr. Olive Valera DO Work Phone: 5(116)[phone] [place] [address] 12-21-2024 19:46-0400 Diastolic blood pressure 87 mm[Hg] Dr. Olive Valera DO Work Phone: [phone](082)236-022974 [place] [address] 12-21-2024 19:46-0400 Heart rate 85 /min Dr. Olive Valera DO Work Phone: 8(894)298-796874 [place] [address] 12-21-2024 19:46-0400 Respiratory rate 22 /min Dr. Olive Valera DO Work Phone: 4(118)[phone] [place] [address] 12-21-2024 19:46-0400 SaO2% (BldA) [Mass fraction] 97 % Dr. Olive Valera DO Work Phone: 7([phone])[phone] [place] [address] 12-21-2024 19:46-0400 Systolic blood pressure 135 mm[Hg] Dr. Olive Valera DO Work Phone: [phone](126)027-291874 [place] [address] 12-21-2024 12:33-0400 Body mass index (BMI) [Ratio] 15.7 kg/m2 Dr. Olive Valera DO Work Phone: 6(409)316-887574 [place] [address] 12-21-2024 12:33-0400 Body weight 44.[address] Olive Valera DO Work Phone: [phone](259)285-916674 [place] [address] 12-21-2024 10:13-0400 Body mass index (BMI) [Ratio] 16 kg/m2 Dr. Olive Valera DO Work Phone: 0(793)[phone] [place] [address] 12-21-2024 10:13-0400 Body temperature 98.9 [degF] Dr. Olive Valera DO Work Phone: [phone])041-172774 [place] [address] 12-21-2024 10:13-0400 Body weight 45.[address] Olive Valera DO Work Phone: [phone] [place] [address] 12-21-2024 10:13-0400 Diastolic blood pressure 61 mm[Hg] Dr. Olive Valera DO Work Phone: [phone](468)668-092774 [place] [address] 12-21-2024 10:13-0400 Heart rate 84 /min Dr. Olive Valera DO Work Phone: [facility] 12-21-2024 10:13-0400 Respiratory rate 18 /min Dr. Olive Valera DO Work Phone: [facility] 12-21-2024 10:13-0400 SaO2% (BldA) [Mass fraction] 97 % Dr. Olive Valera DO Work Phone: [facility] 12-21-2024 10:13-0400 Systolic blood pressure 105 mm[Hg] Dr. Olive Valera DO Work Phone: [facility] 10-23-2024 07:28-0400 Body height 167.6 cm Maribel Brooks MD Work Phone: [facility] 10-23-2024 07:28-0400 Body mass index (BMI) [Ratio] 16.14 kg/m2 Maribel Brooks MD Work Phone: [facility] 10-23-2024 07:28-0400 Body weight 45.36 kg Maribel Brooks MD Work Phone: [facility] 10-23-2024 07:28-0400 Diastolic blood pressure 60 mm[Hg] Maribel Brooks MD Work Phone: [facility] 10-23-2024 07:28-0400 Heart rate 76 /min Maribel Brooks MD Work Phone: [facility] 10-23-2024 07:28-0400 Systolic blood pressure 115 mm[Hg] Maribel Brooks MD Work Phone: [facility] 10-10-2024 13:59-0400 Body height 167.6 cm Babs Marley MD Work Phone: [facility] 10-10-2024 13:59-0400 Body mass index (BMI) [Ratio] 16.17 kg/m2 Babs Marley MD Work Phone: [facility] 10-10-2024 13:59-0400 Body temperature 98.2 [degF] Babs Marley MD Work Phone: [facility] 10-10-2024 13:59-0400 Body weight 45.45 kg Babs Marley MD Work Phone: [facility] 10-10-2024 13:59-0400 Diastolic blood pressure 55 mm[Hg] Babs Marley MD Work Phone: [facility] 10-10-2024 13:59-0400 Heart rate 86 /min Babs Marley MD Work Phone: [facility] 10-10-2024 13:59-0400 Systolic blood pressure 116 mm[Hg] Babs Marley MD Work Phone: [facility] 09-21-2024 14:14-0400 Body height 162.6 cm Maribel Brooks MD Work Phone: [facility] 09-21-2024 14:14-0400 Body mass index (BMI) [Ratio] 17.85 kg/m2 Maribel Brooks MD Work Phone: [facility] 09-21-2024 14:14-0400 Body weight 47.17 kg Maribel Brooks MD Work Phone: [facility] 09-21-2024 14:14-0400 Diastolic blood pressure 68 mm[Hg] Maribel Brooks MD Work Phone: [facility] 09-21-2024 14:14-0400 Heart rate 76 /min Maribel Brooks MD Work Phone: [facility] 09-21-2024 14:14-0400 SaO2% (BldA) [Mass fraction] 98 % Maribel Brooks MD Work Phone: [facility] 09-21-2024 14:14-0400 Systolic blood pressure 108 mm[Hg] Maribel Brooks MD Work Phone: [facility] 09-21-2024 12:55-0400 Body height 162.6 cm Analisa Donovan MD Work Phone: [facility] 09-21-2024 12:55-0400 Body mass index (BMI) [Ratio] 17.85 kg/m2 Analisa Donovan MD Work Phone: [facility] 09-21-2024 12:55-0400 Body temperature 98.4 [degF] Analisa Donovan MD Work Phone: [facility] 09-21-2024 12:55-0400 Body weight 47.17 kg Analisa Donovan MD Work Phone: [facility] 09-21-2024 12:55-0400 Diastolic blood pressure 74 mm[Hg] Analisa Donovan MD Work Phone: [facility] 09-21-2024 12:55-0400 Heart rate 77 /min Analisa Donovan MD Work Phone: [facility] 09-21-2024 12:55-0400 SaO2% (BldA) [Mass fraction] 96 % Analisa Donovan MD Work Phone: [facility] 09-21-2024 12:55-0400 Systolic blood pressure 110 mm[Hg] Analisa Donovan MD Work Phone: [facility] 08-22-2024 14:24-0400 Body height 167.6 cm Babs Marley MD Work Phone: [facility] 08-22-2024 14:24-0400 Body mass index (BMI) [Ratio] 16.96 kg/m2 Babs Marley MD Work Phone: [facility] 08-22-2024 14:24-0400 Body temperature 97.7 [degF] Babs Marley MD Work Phone: [facility] 08-22-2024 14:24-0400 Body weight 47.67 kg Babs Marley MD Work Phone: [facility] 08-22-2024 14:24-0400 Diastolic blood pressure 75 mm[Hg] Babs Marley MD Work Phone: [facility] 08-22-2024 14:24-0400 Heart rate 85 /min Babs Marley MD Work Phone: [facility] 08-22-2024 14:24-0400 Systolic blood pressure 130 mm[Hg] Babs Marley MD Work Phone: [facility] 08-17-2024 09:06-0400 Body height 167.[address] Olive Valera DO Work Phone: [facility] 08-17-2024 09:06-0400 Body mass index (BMI) [Ratio] 17.2 kg/m2 Dr. Olive Valera DO Work Phone: [facility] 08-17-2024 09:06-0400 Body temperature 98.1 [degF] Dr. Olive Valera DO Work Phone: [facility] 08-17-2024 09:06-0400 Body weight 48.[address] Olive Valera DO Work Phone: [facility] 08-17-2024 09:06-0400 Diastolic blood pressure 65 mm[Hg] Dr. Olive Valera DO Work Phone: [facility] 08-17-2024 09:06-0400 Heart rate 89 /min Dr. Olive Valera DO Work Phone: [facility] 08-17-2024 09:06-0400 Respiratory rate 16 /min Dr. Olive Valera DO Work Phone: [facility] 08-17-2024 09:06-0400 SaO2% (BldA) [Mass fraction] 96 % Dr. Olive Valera DO Work Phone: [facility] 08-17-2024 09:06-0400 Systolic blood pressure 101 mm[Hg] Dr. Olive Valera DO Work Phone: [facility] 08-09-2024 15:19-0400 Body temperature 97.81 [degF] Sonya Treviño MD, MPH Work Phone: [facility] 08-09-2024 15:19-0400 Diastolic blood pressure 72 mm[Hg] Sonya Treviño MD, MPH Work Phone: [facility] 08-09-2024 15:19-0400 Heart rate 80 /min Sonya Treviño MD, MPH Work Phone: [facility] 08-09-2024 15:19-0400 Respiratory rate 13 /min Sonya Treviño MD, MPH Work Phone: [facility] 08-09-2024 15:19-0400 SaO2% (BldA) [Mass fraction] 100 % Sonya Treviño MD, MPH Work Phone: [facility] 08-09-2024 15:19-0400 Systolic blood pressure 118 mm[Hg] Sonya Treviño MD, MPH Work Phone: [facility] 08-09-2024 11:52-0400 Body mass index (BMI) [Ratio] 16.96 kg/m2 Sonya Treviño MD, MPH Work Phone: [facility] 08-09-2024 11:52-0400 Body weight 47.67 kg Sonya Treviño MD, MPH Work Phone: [facility] 08-01-2024 18:50-0400 Body height 167.6 cm Sonya Treviño MD, MPH Work Phone: [facility] 07-04-2024 14:08-0400 Body mass index (BMI) [Ratio] 16.19 kg/m2 W. Martha MILIAN Work Phone: [facility] 07-04-2024 14:08-0400 Body temperature 98.01 [degF] W. Martha MILIAN Work Phone: [facility] 07-04-2024 14:08-0400 Body weight 45.5 kg W. Martha MILIAN Work Phone: 3(239)883-396543 [address] 07-04-2024 14:08-0400 Diastolic blood pressure 81 mm[Hg] W. Martha MILIAN Work Phone: [facility] 07-04-2024 14:08-0400 Heart rate 94 /min W. Martha MILIAN Work Phone: [facility] 07-04-2024 14:08-0400 Systolic blood pressure 128 mm[Hg] W. Martha MILIAN Work Phone: [facility] 06-20-2024 14:08-0400 Body mass index (BMI) [Ratio] 15.67 kg/m2 W. Martha MILIAN Work Phone: [facility] 06-20-2024 14:08-0400 Body temperature 97.2 [degF] W. Martha MILIAN Work Phone: [facility] 06-20-2024 14:08-0400 Body weight 44.04 kg W. Martha MILIAN Work Phone: [facility] 06-20-2024 14:08-0400 Diastolic blood pressure 68 mm[Hg] W. Martha MILIAN Work Phone: [facility] 06-20-2024 14:08-0400 Heart rate 92 /min Akosua. Martha MILIAN Work Phone: [facility] 06-20-2024 14:08-0400 Systolic blood pressure 114 mm[Hg] WMiguelina Thomas MD Work Phone: [facility] 06-15-2024 15:01-0400 Body height 167.6 cm Carmen Castellanos MD Work Phone: [facility] 06-15-2024 15:01-0400 Body mass index (BMI) [Ratio] 15.56 kg/m2 Carmen Castellanos MD Work Phone: [facility] 06-15-2024 15:01-0400 Body weight 43.73 kg Carmen Castellanos MD Work Phone: [facility] 06-15-2024 15:01-0400 Diastolic blood pressure 50 mm[Hg] Carmen Castellanos MD Work Phone: [facility] 06-15-2024 15:01-0400 Heart rate 83 /min Carmen Castellanos MD Work Phone: [facility] 06-15-2024 15:01-0400 SaO2% (BldA) [Mass fraction] 96 % Carmen Castellanos MD Work Phone: [facility] 06-15-2024 15:01-0400 Systolic blood pressure 94 mm[Hg] Carmen Castellanos MD Work Phone: [facility] 06-13-2024 13:21-0400 Body mass index (BMI) [Ratio] 15.2 kg/m2 Dalia Thomas MD Work Phone: [facility] 06-13-2024 13:21-0400 Body temperature 97.7 [degF] W. Martha MILIAN Work Phone: [facility] 06-13-2024 13:21-0400 Body weight 42.68 kg W. Martha MILIAN Work Phone: [facility] 06-13-2024 13:21-0400 Diastolic blood pressure 77 mm[Hg] W. Martha MILIAN Work Phone: [facility] 06-13-2024 13:21-0400 Heart rate 87 /min W. Martha MILIAN Work Phone: [facility] 06-13-2024 13:21-0400 Systolic blood pressure 125 mm[Hg] W. Martha MILIAN Work Phone: [facility] 05-13-2024 15:30-0400 Diastolic blood pressure 73 mm[Hg] Jess Gamez MD Work Phone: [facility] 05-13-2024 15:30-0400 Heart rate 68 /min Jess Gamez MD Work Phone: [facility] 05-13-2024 15:30-0400 Respiratory rate 20 /min Jess Gamez MD Work Phone: [facility] 05-13-2024 15:30-0400 SaO2% (BldA) [Mass fraction] 98 % Jess Gamez MD Work Phone: [facility] 05-13-2024 15:30-0400 Systolic blood pressure 129 mm[Hg] Jess Gamez MD Work Phone: [facility] 05-13-2024 13:02-0400 Body height 167.6 cm Jess Gamez MD Work Phone: [facility] 05-03-2024 08:56-0500 Body height 167.[address] Olive Valera DO Work Phone: [facility] 05-03-2024 08:56-0500 Body mass index (BMI) [Ratio] 16.7 kg/m2 Dr. Olive Valera DO Work Phone: [facility] 05-03-2024 08:56-0500 Body weight 47.[address] Olive Valera DO Work Phone: [facility] 05-03-2024 08:56-0500 Diastolic blood pressure 79 mm[Hg] Dr. Olive Valera DO Work Phone: [facility] 05-03-2024 08:56-0500 Respiratory rate 18 /min Dr. Olive Valera DO Work Phone: [facility] 05-03-2024 08:56-0500 Systolic blood pressure 127 mm[Hg] Dr. Olive Valera DO Work Phone: [facility] 04-14-2024 16:00-0500 Heart rate 67 /min Josué Mclain MD Work Phone: [facility] 04-14-2024 16:00-0500 Respiratory rate 16 /min Josué Mclain MD Work Phone: [facility] 04-14-2024 16:00-0500 SaO2% (BldA) [Mass fraction] 100 % Josué Mclain MD Work Phone: [facility] 04-14-2024 15:30-0500 Diastolic blood pressure 63 mm[Hg] Josué Mclain MD Work Phone: [facility] 04-14-2024 15:30-0500 Systolic blood pressure 104 mm[Hg] Josué Mclain MD Work Phone: [facility] 04-14-2024 11:39-0500 Body height 167.6 cm Josué Mclain MD Work Phone: 5(832)855-717685 [place] [address] 04-14-2024 11:39-0500 Body mass index (BMI) [Ratio] 16.01 kg/m2 Josué Mclain MD Work Phone: 7(999)601-532185 [place] [address] 04-14-2024 11:39-0500 Body temperature 98.01 [degF] Josué Mclain MD Work Phone: 9(258)126-355385 [place] [address] 04-14-2024 11:39-0500 Body weight 45 kg Josué Mclain MD Work Phone: 2(318)695-236785 [place] [address] 03-29-2024 10:53-0500 Body height 167.6 cm Katia Shelton DO Work Phone: 6(103)345-666385 [place] [address] 03-29-2024 10:53-0500 Body mass index (BMI) [Ratio] 16.8 kg/m2 Katia Shelton DO Work Phone: 5(651)187-044085 [place] [address] 03-29-2024 10:53-0500 Body weight 47.22 kg Katia Shelton DO Work Phone: 6(890)219-954985 [place] [address] 03-29-2024 10:53-0500 Diastolic blood pressure 52 mm[Hg] Katia Shelton DO Work Phone: 1(152)020-039685 [place] [address] 03-29-2024 10:53-0500 Heart rate 73 /min Katia Shelton DO Work Phone: 7(066)985-690685 [place] [address] 03-29-2024 10:53-0500 SaO2% (BldA) [Mass fraction] 97 % Katia Shelton DO Work Phone: 4(163)007-194585 [place] [address] 03-29-2024 10:53-0500 Systolic blood pressure 100 mm[Hg] Katia Shelton DO Work Phone: 6(749)045-144985 [place] [address] 03-24-2024 13:55-0500 Body height 167.6 cm Babs Marley MD Work Phone: [facility] 03-24-2024 13:55-0500 Body mass index (BMI) [Ratio] 16.62 kg/m2 Babs Marley MD Work Phone: [facility] 03-24-2024 13:55-0500 Body weight 46.72 kg Babs Marley MD Work Phone: [facility] 03-15-2024 09:30-0500 Body height 167.6 cm Ba Boland MD, PhD Work Phone: [facility] 03-15-2024 09:30-0500 Body mass index (BMI) [Ratio] 16.74 kg/m2 Ba Boland MD, PhD Work Phone: 9(370)573-321306 [address] 03-15-2024 09:30-0500 Body temperature 98.71 [degF] Ba Boland MD, PhD Work Phone: [facility] 03-15-2024 09:30-0500 Body weight 47.04 kg Ba Boland MD, PhD Work Phone: [facility] 03-15-2024 09:30-0500 Diastolic blood pressure 72 mm[Hg] Ba Boland MD, PhD Work Phone: [facility] 03-15-2024 09:30-0500 Heart rate 74 /min Ba Boland MD, PhD Work Phone: [facility] 03-15-2024 09:30-0500 Systolic blood pressure 112 mm[Hg] Ba Boland MD, PhD Work Phone: [facility] 02-18-2024 13:10-0500 Body mass index (BMI) [Ratio] 16.1 kg/m2 Dr. Olive Valera DO Work Phone: [facility] 02-18-2024 13:10-0500 Body temperature 98.8 [degF] Dr. Olive Valera DO Work Phone: [facility] 02-18-2024 13:10-0500 Body weight 45.[address] Olive Valera DO Work Phone: [facility] 02-18-2024 13:10-0500 Diastolic blood pressure 66 mm[Hg] Dr. Olive Valera DO Work Phone: [facility] 02-18-2024 13:10-0500 Heart rate 65 /min Dr. Olive Valera DO Work Phone: [facility] 02-18-2024 13:10-0500 Respiratory rate 16 /min Dr. Olive Valera DO Work Phone: [facility] 02-18-2024 13:10-0500 SaO2% (BldA) [Mass fraction] 100 % Dr. Olive Valera DO Work Phone: [facility] 02-18-2024 13:10-0500 Systolic blood pressure 105 mm[Hg] Dr. Olive Valera DO Work Phone: [facility] 01-24-2024 12:55-0500 Body height 167.6 cm Babs Marley MD Work Phone: [facility] 01-24-2024 12:55-0500 Diastolic blood pressure 65 mm[Hg] Babs Marley MD Work Phone: [facility] 01-24-2024 12:55-0500 Heart rate 73 /min Babs Marley MD Work Phone: [facility] 01-24-2024 12:55-0500 Systolic blood pressure 124 mm[Hg] Babs Marley MD Work Phone: [facility] 12-23-2023 11:01-0400 Body height 167.6 cm Babs Marley MD Work Phone: [facility] 12-23-2023 11:01-0400 Body mass index (BMI) [Ratio] 16.3 kg/m2 Babs Marley MD Work Phone: [facility] 12-23-2023 11:01-0400 Body weight 45.81 kg Babs Marley MD Work Phone: [facility] 12-23-2023 11:01-0400 Diastolic blood pressure 70 mm[Hg] Babs Marley MD Work Phone: [facility] 12-23-2023 11:01-0400 Heart rate 80 /min Babs Marley MD Work Phone: [facility] 12-23-2023 11:01-0400 Respiratory rate 16 /min Babs Marley MD Work Phone: [facility] 12-23-2023 11:01-0400 SaO2% (BldA) [Mass fraction] 97 % Babs Marley MD Work Phone: [facility] 12-23-2023 11:01-0400 Systolic blood pressure 122 mm[Hg] Babs Marley MD Work Phone: [facility] 02-09-2023 09:15-0500 Diastolic blood pressure 70 mm[Hg] Miroslava Joiner MD Work Phone: [facility] 02-09-2023 09:15-0500 Heart rate 61 /min Miroslava Joiner MD Work Phone: [facility] 02-09-2023 09:15-0500 Respiratory rate 16 /min Miroslava Joiner MD Work Phone: [facility] 02-09-2023 09:15-0500 SaO2% (BldA) [Mass fraction] 100 % Miroslava Joiner MD Work Phone: [facility] 02-09-2023 09:15-0500 Systolic blood pressure 120 mm[Hg] Miroslava Joiner MD Work Phone: [facility] 02-09-2023 08:57-0500 Body temperature 98.29 [degF] Miroslava Joiner MD Work Phone: [facility] 02-09-2023 07:38-0500 Body height 167.6 cm Miroslava Joiner MD Work Phone: [facility] 01-13-2023 13:41-0500 Body height 167.[address] Olive Valera Work Phone: [facility] 01-13-2023 13:41-0500 Body mass index (BMI) [Ratio] 17.7 kg/m2 Dr. Olive Valera Work Phone: 2(963)553-861318 [place] [address] 01-13-2023 13:41-0500 Body temperature 99.3 [degF] Dr. Olive Valera Work Phone: [facility] 01-13-2023 13:41-0500 Body weight 49.[address] Olive Valera Work Phone: [facility] 01-13-2023 13:41-0500 Diastolic blood pressure 53 mm[Hg] Dr. Olive Valera Work Phone: [facility] 01-13-2023 13:41-0500 Heart rate 83 /min Dr. Olive Valera Work Phone: [facility] 01-13-2023 13:41-0500 Respiratory rate 15 /min Dr. Olive Valera Work Phone: [facility] 01-13-2023 13:41-0500 SaO2% (BldA) [Mass fraction] 98 % Dr. Olive Valera Work Phone: [facility] 01-13-2023 13:41-0500 Systolic blood pressure 117 mm[Hg] Dr. Olive Valera Work Phone: [facility] 04-08-2022 14:22-0500 Body temperature 97.3 [degF] Dr. Olive Valera Work Phone: [facility] 04-08-2022 14:22-0500 Diastolic blood pressure 78 mm[Hg] Dr. Olive Valera Work Phone: [facility] 04-08-2022 14:22-0500 Heart rate 66 /min Dr. Olive Valera Work Phone: [facility] 04-08-2022 14:22-0500 Respiratory rate 16 /min Dr. Olive Valera Work Phone: [facility] 04-08-2022 14:22-0500 Systolic blood pressure 124 mm[Hg] Dr. Olive Valera Work Phone: [facility] 04-08-2022 13:52-0500 Body mass index (BMI) [Ratio] 18.1 kg/m2 Dr. Olive Valera Work Phone: [facility] 04-08-2022 13:52-0500 SaO2% (BldA) [Mass fraction] 100 % Dr. Olive Valera Work Phone: [facility] 02-28-2022 08:20-0500 Diastolic blood pressure 74 mm[Hg] Miroslava Joiner MD Work Phone: [facility] 02-28-2022 08:20-0500 Heart rate 67 /min Miroslava Joiner MD Work Phone: [facility] 02-28-2022 08:20-0500 Respiratory rate 13 /min Miroslava Joiner MD Work Phone: [facility] 02-28-2022 08:20-0500 SaO2% (BldA) [Mass fraction] 100 % Miroslava Joiner MD Work Phone: [facility] 02-28-2022 08:20-0500 Systolic blood pressure 127 mm[Hg] Miroslava Joiner MD Work Phone: 3(085)862-878324 [place] [address] 02-28-2022 07:54-0500 Body temperature 97.39 [degF] Miroslava Joiner MD Work Phone: 4(118)321-090824 [place] [address] 02-28-2022 06:36-0500 Body height 167.6 cm Miroslava Joiner MD Work Phone: 1(144)523-567924 [place] [address] 02-28-2022 06:36-0500 Body mass index (BMI) [Ratio] 16.79 kg/m2 Miroslava Joiner MD Work Phone: 5(179)103-425024 [place] [address] 02-28-2022 06:36-0500 Body weight 47.17 kg Miroslava Joiner MD Work Phone: 5(062)569-444924 [place] [address] 12-26-2021 15:25-0400 Body height 167.6 cm Miroslava Joiner MD Work Phone: 0(893)941-278424 [place] [address] 12-26-2021 15:25-0400 Body mass index (BMI) [Ratio] 16.87 kg/m2 Miroslava Joiner MD Work Phone: 1(459)132-713724 [place] [address] 12-26-2021 15:25-0400 Body weight 47.4 kg Miroslava Joiner MD Work Phone: 2(934)127-547524 [place] [address] 12-26-2021 15:25-0400 Diastolic blood pressure 84 mm[Hg] Miroslava Joiner MD Work Phone: 0(353)588-550824 [place] [address] 12-26-2021 15:25-0400 Heart rate 69 /min Miroslava Joiner MD Work Phone: 4(570)674-451924 [place] [address] 12-26-2021 15:25-0400 Systolic blood pressure 137 mm[Hg] Miroslava Joiner MD Work Phone: 3(859)556-729624 [place] [address] 07-11-2021 12:05-0400 Diastolic blood pressure 68 mm[Hg] Miroslava Joiner MD Work Phone: 8(968)021-731869 [place] [address] 07-11-2021 12:05-0400 Heart rate 64 /min Miroslava Joiner MD Work Phone: 1(364)296-618315 [address] 07-11-2021 12:05-0400 Systolic blood pressure 113 mm[Hg] Miroslava Joiner MD Work Phone: 4(425)763-508624 [place] [address] 07-11-2021 12:02-0400 Body height 167.6 cm Miroslava Joiner MD Work Phone: 4(497)132-190424 [place] [address] 07-11-2021 12:02-0400 Body mass index (BMI) [Ratio] 16.93 kg/m2 Miroslava Joiner MD Work Phone: 5(749)277-177115 [address] 07-11-2021 12:02-0400 Body weight 47.58 kg Miroslava Joiner MD Work Phone: 1(310)168-771915 [address] 07-02-2021 17:28-0400 Body mass index (BMI) [Ratio] 17.3 kg/m2 Dr. Olive Valera Work Phone: [facility] Work Phone: 07-02-2021 16:34-0400 Body height 167.[address] Olive Valera Work Phone: [facility] Work Phone: 07-02-2021 16:34-0400 Body weight 48.[address] Olive Valera Work Phone: [facility] Work Phone: 06-19-2021 15:11-0400 Body mass index (BMI) [Ratio] 17.5 kg/m2 Dr. Olive Valera Work Phone: [facility] Work Phone: 06-19-2021 15:11-0400 Body temperature 98.4 [degF] Dr. Olive Valera Work Phone: [facility] Work Phone: 06-19-2021 15:11-0400 Body weight 49.[address] Olive Valera Work Phone: [facility] Work Phone: 06-19-2021 15:11-0400 Diastolic blood pressure 77 mm[Hg] Dr. Olive Valera Work Phone: [facility] Work Phone: 06-19-2021 15:11-0400 Heart rate 80 /min Dr. Olive Valera Work Phone: [facility] Work Phone: 06-19-2021 15:11-0400 Respiratory rate 14 /min Dr. Olive Valera Work Phone: [facility] Work Phone: 06-19-2021 15:11-0400 SaO2% (BldA) [Mass fraction] 99 % Dr. Olive Valera Work Phone: [facility] Work Phone: 06-19-2021 15:11-0400 Systolic blood pressure 120 mm[Hg] Dr. Olive Valera Work Phone: [facility] Work Phone: 06-06-2021 15:13-0400 Body temperature 97.9 [degF] Miroslava Joiner MD Work Phone: [facility] 06-06-2021 15:13-0400 Diastolic blood pressure 72 mm[Hg] Miroslava Joiner MD Work Phone: [facility] 06-06-2021 15:13-0400 Heart rate 70 /min Miroslava Joiner MD Work Phone: [facility] 06-06-2021 15:13-0400 Respiratory rate 16 /min Miroslava Joiner MD Work Phone: [facility] 06-06-2021 15:13-0400 SaO2% (BldA) [Mass fraction] 97 % Miroslava Joiner MD Work Phone: [facility] 06-06-2021 15:13-0400 Systolic blood pressure 147 mm[Hg] Miroslava Joiner MD Work Phone: [facility] 06-06-2021 05:24-0400 Body mass index (BMI) [Ratio] 19.11 kg/m2 Miroslava Joiner MD Work Phone: 0(837)024-259315 [address] 06-06-2021 05:24-0400 Body weight 53.71 kg Miroslava Joiner MD Work Phone: 8(819)928-116915 [address] 06-04-2021 19:33-0400 Body height 167.6 cm Miroslava Joiner MD Work Phone: [facility] 04-17-2021 14:28-0500 Body temperature 98 [degF] Dr. Olive Valera Work Phone: [facility] Work Phone: 04-17-2021 14:28-0500 Diastolic blood pressure 50 mm[Hg] Dr. Olive Valera Work Phone: [facility] Work Phone: 04-17-2021 14:28-0500 Heart rate 54 /min Dr. Olive Valera Work Phone: [facility] Work Phone: 04-17-2021 14:28-0500 Respiratory rate 16 /min Dr. Olive Valera Work Phone: [facility] Work Phone: 04-17-2021 14:28-0500 SaO2% (BldA) [Mass fraction] 96 % Dr. Olive Valera Work Phone: [facility] Work Phone: 04-17-2021 14:28-0500 Systolic blood pressure 97 mm[Hg] Dr. Olive Valera Work Phone: [facility] Work Phone: 04-17-2021 12:36-0500 Body mass index (BMI) [Ratio] 17.5 kg/m2 Dr. Olive Vlaera Work Phone: [facility] Work Phone: 04-10-2021 13:23-0500 Body height 167.64 cm Dr. Olive Valera Work Phone: [facility] Work Phone: 04-10-2021 13:23-0500 Body weight 48.[address] Olive Valera Work Phone: [facility] Work Phone: 03-13-2021 10:10-0500 Body mass index (BMI) [Ratio] 17.6 kg/m2 Dr. Olive Valera Work Phone: [facility] Work Phone: 03-13-2021 10:10-0500 Body temperature 98.1 [degF] Dr. Olive Valera Work Phone: [facility] Work Phone: 03-13-2021 10:10-0500 Body weight 49.[address] Olive Valera Work Phone: [facility] Work Phone: 03-13-2021 10:10-0500 Diastolic blood pressure 68 mm[Hg] Dr. Olive Valera Work Phone: [facility] Work Phone: 03-13-2021 10:10-0500 Heart rate 85 /min Dr. Olive Valera Work Phone: [facility] Work Phone: 03-13-2021 10:10-0500 Respiratory rate 16 /min Dr. Olive Valera Work Phone: [facility] Work Phone: 03-13-2021 10:10-0500 SaO2% (BldA) [Mass fraction] 99 % Dr. Olive Valera Work Phone: [facility] Work Phone: 03-13-2021 10:10-0500 Systolic blood pressure 118 mm[Hg] Dr. Olive Valera Work Phone: [facility] Work Phone: 02-18-2021 10:12-0500 Body temperature 98.3 [degF] Dr. Olive Valera Work Phone: [facility] Work Phone: 02-18-2021 10:12-0500 Diastolic blood pressure 86 mm[Hg] Dr. Olive Valera Work Phone: [facility] Work Phone: 02-18-2021 10:12-0500 Heart rate 86 /min Dr. Olive Valera Work Phone: [facility] Work Phone: 02-18-2021 10:12-0500 Respiratory rate 16 /min Dr. Olive Valera Work Phone: [facility] Work Phone: 02-18-2021 10:12-0500 SaO2% (BldA) [Mass fraction] 98 % Dr. Olive Valera Work Phone: [facility] Work Phone: 02-18-2021 10:12-0500 Systolic blood pressure 136 mm[Hg] Dr. Olive Valera Work Phone: [facility] Work Phone: 02-18-2021 06:09-0500 Body mass index (BMI) [Ratio] 17.3 kg/m2 Dr. Olive Valera Work Phone: [facility] Work Phone: 02-18-2021 06:09-0500 Body weight 48.[address] Olive Valera Work Phone: [facility] Work Phone: Encounters Encounter Date Encounter Type Care Provider Facility Start: 01-18-2025 ambulatory [facility] Facilit y:[facility] Start: 01-11-2025 End: 01-11-2025 ambulatory [facility] Facility:[facility] Start: 01-04-2025 End: 01-04-2025 ambulatory [facility] Facility:[facility] Start: 12-31-2024 ambulatory LOU NEAL FRANKI Facility:[facility] Start: 12-26-2024 End: 12-31-2024 Evaluation and management of inpatient Sonya Treviño MD, MPH Work Phone: [facility] Comment on above: Elevated alkaline ph osphatase level Start: 12-21-2024 End: 12-21-2024 Dr. Michelle Barrera MD -Emergency [facility] t Work Phone: Start: 12-21-2024 End: 12-21-2024 Emergency department patient visit Michelle Barrera Facility:[facility] Start: 12-21-2024 End: 12-21-2024 Dr. Robe Zavala MD -[facility] Work Phone: Start: 12-21-2024 End: 12-21-2024 ambulatory Olive Valera Facility:[facility] Start: 12-21-2024 Evaluation and management of inpatient OLIVE VALERA Facility:[facility] Start: 12-14-2024 End: 12-14-2024 Dr. Olive Valera DO Work Phone: -Laboratory Work Phone: Start: 12-14-2024 End: 12-14-2024 ambulatory Gregoryr Donell Facility:[facility] Start: 12-01-2024 ambulatory OLIVE VALERA Facility :[facility] Start: 11-30-[address] Olive Valera DO Work Phone: -Laboratory Work Phone: Start: 11-23-2024 End: 11-29-[address] Olive Valera DO Work [...] Brooks MD Work Phone: [facility] Comment on above: Arrived Start: 10-15-2024 ambulatory OLIVE VALERA Facility :[facility] Start: 10-10-2024 End: 10-10-2024 Office outpatient visit 40 minutes Babs Marley MD Work Phone: [facility] Comment on above: Liver replaced by tr ansplant; Aftercare following organ transplant; Long-term use of high-risk medication; Therapeutic drug monitoring Start: 10-10-2024 ambulatory OLIVE VALERA Facility :[facility] Start: 09-30-2024 ambulatory Babs Marley Facilit y:[facility] Start: 09-26-2024 End: 09-29-[address] Olive Valera DO Work Phone: -Laboratory Start: 09-26-2024 End: 09-29-2024 Discharged Recurring Babs Marley MD -Laboratory Work Phone: Start: 09-26-2024 End: 09-29-2024 Babs Marley MD -Laboratory Work Phone: Start: 09-21-2024 End: 09-21-2024 Office consultation new/estab patient 80 min Maribel Brooks MD Work Phone: [facility] Comment on above: Ulcerative pancoliti s with other complication (Primary Dx); PSC (primary sclerosing cholangitis); Cancer of sigmoid colon; S/P liver transplant Start: 09-21-2024 ambulatory OLIVE VALERA Facility :[facility] Start: 09-21-2024 End: 09-21-2024 Office outpatient visit 15 minutes Analisa Donovan MD Work Phone: [facility] Comment on above: Fever, unspecified f ever cause (Primary Dx); Abnormal laboratory test; S/P liver transplant; Immunocompromised Start: 09-21-2024 ambulatory OLIVE VALERA Facility :[facility] Start: 09-05-2024 End: 09-29-2024 Discharged [...] 40 minutes Babs Marley MD Work Phone: [facility] Comment on above: Diarrhea, unspecifie d type (Primary Dx) Start: 08-22-2024 ambulatory OLIVE VALERA Facility :[facility] Start: 08-17-2024 End: 08-17-[address] Robe Zavala MD -[facility] Work Phone: Start: 08-17-2024 End: 08-17-[address] Olive Valera DO Work Phone: [facility] Work Phone: Start: 08-15-[address] Olive Valera DO Work Phone: -Laboratory Work Phone: Start: 08-01-2024 End: 08-09-2024 Evaluation and management of inpatient Sonya Treviño MD, MPH Work Phone: [facility] Comment on above: S/P liver transplant Start: 07-28-2024 End: 07-28-[address] Olive Valera DO Work Phone: [facility] Work Phone: Start: 07-28-2024 End: 07-28-[address] Olive Valera DO Work Phone: -Laboratory Work Phone: Start: 07-21-2024 ambulatory OLIVE VALERA Facility :[facility] Start: 07-13-2024 ambulatory Dalia Goodrich ility:[facility] Start: 07-04-2024 End: 07-04-2024 Office outpatient visit 10 minutes Dalia Thomas MD Work Phone: [facility] Comment on above: Liver replaced by tr ansplant (Primary Dx) Start: 07-04-2024 ambulatory Dalia THOMAS Fac ility:[facility] Start: 06-27-2024 End: 06-29-2024 ambulatory LOU URIBE FRANKI Facility:[facility] Start: 06-27-2024 End: 06-29-[address] Olive Valera DO Work Phone: -Laboratory Work Phone: Start: 06-20-2024 End: 06-20-2024 Office outpatient visit 10 minutes Dalia Thomas MD Work Phone: [facility] Comment on above: Liver replaced by tr ansplant (Primary Dx) Start: 06-20-2024 ambulatory Dalia THOMAS Fac ility:[facility] Start: 06-15-2024 End: 06-15-2024 Office outpatient visit 25 minutes Carmen Castellanos MD Work Phone: 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 Ernie Pierce MD -[facility] Work Phone: Start: 05-03-2024 End: 05-03-2024 ambulatory Ernie Pierce Facility:[facility] Start: 04-30-2024 Encounter for preprocedural cardiovascular examination [facility] Start: 04-28-2024 End: 04-28-[address] Olive Valera DO Work Phone: [facility] Work Phone: Start: 04-28-2024 End: 04-28-2024 Patient encounter procedure Babs Marley MD -Laboratory Work Phone: Start: 04-27-2024 End: 04-29-2024 Discharged Recurring Babs Marley MD -Laboratory Work Phone: Start: 04-27-2024 End: 04-29-2024 ambulatory [facility] Facility:[facility] Start: 04-14-2024 End: 04-14-2024 ambulatory OLIVE VALERA Facility:[facility] Start: 04-14-2024 Encounter for other preprocedural examination JOSUÉ MCLIAN [facility] Start: 04-14-2024 End: 04-14-2024 Patient encounter status Josué Mclain MD Work Phone: [facility] Start: 04-14-2024 End: 04-14-2024 Subsequent hospital visit by physician Josué Mclain MD Work Phone: [facility] Comment on above: PSC (primary scleros ing cholangitis) Start: 04-11-2024 End: 04-11-2024 Patient encounter procedure Julio Hanson DO -[facility] Work Phone: Start: 04-11-2024 End: 04-11-2024 ambulatory Julio Hanson Facility:[facility] Start: 03-29-2024 End: 03-29-2024 Office outpatient new 45 minutes Katia Shelton DO Work Phone: [facility] [place] Comment on above: Abnormal stress test (Primary Dx); PSC (primary sclerosing cholangitis); Ulcerative colitis with complication, unspecified location; Hepatic cirrhosis, unspecified hepatic cirrhosis type, unspecified whether ascites present; Pre-transplant evaluation for liver transplant Start: 03-29-2024 End: 03-29-2024 Patient encounter status Katia Perla Nikita DO Work Phone: [facility] Start: 03-29-2024 ambulatory OLIVE L MORAIMA Facility :[facility] Start: 03-24-2024 ambulatory OLIVE L MORAIMA Facility :[facility] Start: 03-24-2024 End: 03-24-2024 Subsequent hospital visit by physician Babs Marley MD Work Phone: Cardiovascular [facility] Comment on above: Arrived Start: 03-24-2024 Anes nerve muscle td n fascia&bursa forearm wrist BABS MARLEY [facility] Start: 03-24-2024 End: 03-24-2024 Admission to same day surgery center Babs Marley MD Work Phone: [facility] V[facility] Outpatient [facility] Comment on above: Primary sclerosing c holangitis; Pre-transplant evaluation for liver transplant; Preoperative evaluation to rule out surgical contraindication; High risk surgery, pre-operative cardiovascular examination Start: 03-24-2024 ambulatory OLIVE L MORAIMA Facility :[facility] Start: 03-24-2024 End: 03-24-2024 Patient encounter status Bbas Marley MD Work Phone: [facility] Start: 03-24-2024 End: 03-24-2024 Subsequent hospital visit by physician Babs Marley MD Work Phone: [facility] [place] Comment on above: Arrived Start: 03-15-2024 ambulatory OLIVE L MORAIMA Facility :[facility] Start: 03-15-2024 End: 03-15-2024 Clinical Support Encounter Ba Boland MD, PhD Work Phone: [facility] Comment on above: Pre-transplant evalu ation for liver transplant (Primary Dx) Start: 03-15-2024 End: 03-15-2024 Admission to same day surgery center Ba Boland MD, PhD Work Phone: [facility] Start: 03-15-2024 End: 03-15-2024 Office outpatient new 60 minutes Ba Boland MD, PhD Work Phone: [facility] Comment on above: Pre-transplant evalu ation for liver transplant (Primary Dx); PSC (primary sclerosing cholangitis); Primary sclerosing cholangitis; Preoperative evaluation to rule out surgical contraindication; High risk surgery, pre-operative cardiovascular examination Start: 03-15-2024 ambulatory OLIVE L MORAIMA Facility :[facility] Start: 03-15-2024 End: 03-15-2024 Patient encounter status Ba Boland MD, PhD Work Phone: [facility] Start: 03-15-2024 End: 03-15-2024 Subsequent hospital visit by physician Ba Boland MD, PhD Work Phone: [facility] Comment on above: Arrived Start: 02-25-2024 ambulatory OLIVE L MORAIMA Facility :[facility] Start: 02-25-2024 End: 02-25-2024 Subsequent hospital visit by physician Nan Farrar MD, MPH Work Phone: Department of Radiology Comment on above: Arrived Start: 02-25-2024 ambulatory OLIVE L MORAIMA Facility :[facility] Start: 02-18-2024 End: 02-18-[address] Robe Zavala MD -[facility] Work Phone: Start: 02-18-2024 End: 02-18-2024 ambulatory Olive Moraima Facility:[facility] Start: 02-11-[address] Vishnu Zavala MD -[facility] Start: 02-08-2024 ambulatory Babs Marley Facilit y:[facility] Start: 01-24-2024 ambulatory OLIVE VALERA Facility :[facility] Start: 01-24-2024 End: 01-24-2024 Subsequent hospital visit by physician Babs Marley MD Work Phone: [facility] [place] Comment on above: Arrived Start: 12-29-2023 End: 12-29-2023 Subsequent hospital visit by physician Babs Marley MD Work Phone: [facility] Comment on above: Arrived Start: 12-23-2023 End: 12-23-2023 Office consultation new/estab patient 60 min Babs Marley MD Work Phone: [facility]astro[facility] [place] Comment on above: PSC (primary scleros ing cholangitis) (Primary Dx) Start: 03-31-2023 End: 03-31-[address] Olive Valera Work Phone: [facility] Work Phone: Start: 03-31-2023 End: 03-31-[address] Olive Valera Work Phone: [facility] Gastro[facility] Work Phone: Start: 02-09-2023 End: 02-09-2023 Subsequent hospital visit by physician Miroslava Joiner MD Work Phone: [facility] Start: 01-13-2023 End: 01-13-[address] Olive Valera Work Phone: [facility] Work Phone: Start: 01-06-[address] Olive Valera Work Phone: [facility] On[facility] Start: 02-28-2022 End: 02-28-2022 Subsequent hospital visit by physician Miroslava Joiner MD Work Phone: [facility] [place] Comment on above: Ulcerative pancoliti s with other complication Start: 12-26-2021 End: 12-26-2021 Office outpatient visit 15 minutes Miroslava Joiner MD Work Phone: [facility]astro[facility] [place] Comment on above: Ulcerative pancoliti s with other complication (Primary Dx); Anal pain; Diarrhea due to malabsorption Start: 07-11-2021 End: 07-17-2021 Postop follow up visit related to original px Miroslava Joiner MD Work Phone: [facility]astro[facility] [place] Comment on above: Carcinoma of sigmoid colon (Primary Dx) Start: 07-02-2021 End: 07-30-[address] [facility] Start: 06-19-2021 End: 06-19-[address] Olive Valera Work Phone: [facility] Start: 06-17-[address] Olive Valera Work Phone: [facility] Start: 06-04-2021 End: 06-06-2021 Evaluation and management of inpatient Miroslava Joiner MD Work Phone: [facility] Comment on above: Ileostomy dysfunctio n Start: 05-31-2021 End: 05-31-[address] [facility] Start: 04-17-[address] Olive Valera Work Phone: [facility] Start: 03-13-2021 End: 03-13-[address] Olive Valera Work Phone: [facility] Start: 02-18-2021 End: 02-18-2021 Emergency department patient visit Dr. Olive Valera Work Phone: [facility]-Emergency Department Start: 02-08-[address] Olive Valera Work Phone: [facility]-Pulmonary Services/Neurology Procedures Date Procedure Procedure Detail [...] Phone: Start: 01-11-[address] Olive Valera DO Work Phone: Start: 01-11-2025 Neutrophil percent [...] CBC AND ELECTRONIC DIFF Kat B Jubak CHOPPED STRAND OPERATOR-SERVICE RIG OPERATOR Work Phone: Start: 12-31-2024 Complete blood count with white cell differential, automated Kat B Jubak CHOPPED STRAND OPERATOR-SERVICE RIG OPERATOR Work Phone: Start: 12-31-2024 Creatinine blood Terrance Kate MD Work Phone: Start: 12-31-2024 Hepatic function panel Terrance Kate MD Work Phone: Start: 12-31-2024 MANUAL DIFF Kat B Jubak CHOPPED STRAND OPERATOR-SERVICE RIG OPERATOR Work Phone: Start: 12-30-2024 Mri abdomen w/o & w/contrast material Kat B Jubak CHOPPED STRAND OPERATOR-SERVICE RIG OPERATOR Work Phone: Start: 12-30-2024 CBC AND ELECTRONIC DIFF Kat B Jubak CHOPPED STRAND OPERATOR-SERVICE RIG OPERATOR Work Phone: Start: 12-30-2024 Complete blood count with white cell differential, automated Kat B Jubak CHOPPED STRAND OPERATOR-SERVICE RIG OPERATOR Work Phone: Start: 12-30-2024 Creatinine blood Terrance Kate MD Work Phone: Start: 12-30-2024 Hepatic function panel Terrance Kate MD Work Phone: Start: 12-30-2024 MANUAL DIFF Kat B Jubak CHOPPED STRAND OPERATOR-SERVICE RIG OPERATOR Work Phone: Start: 12-29-2024 Insj tunneled cvc w/o subq port/geriatric nurse practitioner age 4 yr/> Marcos Turner MD Work Phone: Start: 12-29-2024 Bilirubin direct Terrance Kate MD Work Phone: Start: 12-29-2024 CBC AND ELECTRONIC DIFF Kat B Jubak CHOPPED STRAND OPERATOR-SERVICE RIG OPERATOR Work Phone: Start: 12-29-2024 Complete blood count with white cell differential, automated Kat B Jubak CHOPPED STRAND OPERATOR-SERVICE RIG OPERATOR Work Phone: Start: 12-29-2024 Drug screen quantitative tacrolimus Jessica Wilkinson PA-C Work Phone: Start: 12-29-2024 MANUAL DIFF Kat B Jubak CHOPPED STRAND OPERATOR-SERVICE RIG OPERATOR Work Phone: Start: 12-28-2024 DIAGNOSTIC UPPER ENDOSCOPY Perlita Jimbo Armijo CHOPPED STRAND OPERATOR-SERVICE RIG OPERATOR Work Phone: Start: 12-28-2024 POUCHOSCOPY Miroslava Joiner MD Work Phone: Start: 12-28-2024 Creatinine blood Terrance Kate MD Work Phone: Start: 12-28-2024 ELECTRONIC DIFF Kat B Jubak CHOPPED STRAND OPERATOR-SERVICE RIG OPERATOR Work Phone: Start: 12-28-2024 Hepatic function panel Terrance Kate MD Work Phone: Start: 12-28-2024 Iadna nos quantification each organism Kat B Jubak CHOPPED STRAND OPERATOR-SERVICE RIG OPERATOR Work Phone: Start: 12-28-2024 MANUAL DIFF Kat B Jubak CHOPPED STRAND OPERATOR-SERVICE RIG OPERATOR Work Phone: Start: 12-27-2024 Us abdominal real time w/image limited Kat B Jubak CHOPPED STRAND OPERATOR-SERVICE RIG OPERATOR Work Phone: Start: 12-27-2024 Creatinine blood Terrance Kate MD Work Phone: Start: 12-27-2024 ELECTRONIC DIFF Kat Jacksonlexjoey CHOPPED STRAND OPERATOR-SERVICE RIG OPERATOR Work Phone: Start: 12-27-2024 Hepatic function panel Terrance Kate MD Work Phone: Start: 12-27-2024 MANUAL DIFF Kat Ward Stevenson CHOPPED STRAND OPERATOR-SERVICE RIG OPERATOR Work Phone: Start: 12-27-2024 End: 12-27-2024 Transfusion [...] on above: Performed By: #### XM ####[facility] (DEFAULT)[address] [place] [id number] Start: 12-26-2024 Blood typing serologic abo Terrance carmichael MD Work Phone: Start: 12-26-2024 Cul prsmptv pthgnc organism scrn w/colony estimj Meagan Lewis CHOPPED STRAND OPERATOR-CITY ROUTE DRIVER Work Phone: Start: 12-26-2024 PREPARE TO TRANSFUSE [...] Work Phone: Comment on above: Test Ordered: [id number] HBV Real-Time PCR, QuantHBV IU/mL Note: IU/mL CB HBV DNA not detected Reference Range: .log10 HBV IU/mL CB Units of Measure: log10 IU/mL Reference Range: .Unable to calculate result since non-numeric resultobtained for component test.Test Information: Comment CB Reference Range: .The reportable range for this assay is 10 IU/mL to 1billion IU/mL.Performed at: [address] [id number] Director: Red Graham PhD, Phone: [phone] Start: 11-23-[address] Olive [...] Work Phone: Comment on above: Test Ordered: [id number] Phosphatidylethanol (PEth)PHOSPHATIDYLETHANOL Negative MX Reference Range: .Phosphatidylethanol (PEth) Negative ng/mL MX Reference Range: .Analyzed compound: PEth 16:0/18:1. 4-lxoonlgkd-5-gannjf-bm-ukgccma-3-phosphoethanol.Analysis performed by Liquid Chromatography withTandem Mass Spectrometry [...] was developed and its performance characteristicsdetermined by [employer]. It has not been cleared or approvedby the Food and Drug Administration.Performed at: [employer] [place] [id number] Director: Clau Abdalla [facility], Phone: [phone] at: [employer] [id number] Director: Red Graham PhD, Phone: [phone] Start: 10-24-2024 Serum inorganic phosphate measurement Dr. [...] Work Phone: Comment on above: Test Ordered: [id number] Phosphatidylethanol (PEth)PHOSPHATIDYLETHANOL Negative MX Reference Range: .Phosphatidylethanol (PEth) Negative ng/mL MX Reference Range: .Analyzed compound: PEth 16:0/18:1. 7-npkvubhtp-5-gdnegn-fu-berelzm-3-phosphoethanol.Analysis performed by Liquid Chromatography withTandem Mass Spectrometry [...] was developed and its performance characteristicsdetermined by [employer]. It has not been cleared or approvedby the Food and Drug Administration.Performed at: [employer] [address] [id number] Director: Clau Abdalla [facility], Phone: [phone] at: [facility] [employer] [id number] Director: Red Graham PhD, Phone: [phone] Start: 09-26-2024 Serum inorganic phosphate measurement Dr. [...] Work Phone: Comment on above: Test Ordered: [id number] Q Fever Antibodies, IgGQ Fever Phase I 1:128 [H ] BN Reference Range: Neg:<1:16Q Fever Phase II Negative BN Reference Range: Neg:<1:16Note: Four-fold increases between paired sera arerecommended to demonstrate recent infection.Performed at: [facility] [employer] [id number] Director: Sergio Machado MD, Phone: [phone] at: [address] [id number] Director: Red Graham PhD, Phone: [phone] Start: 09-05-[address] Olive [...] Work Phone: Comment on above: Test Ordered: [id number] Phosphatidylethanol (PEth)PHOSPHATIDYLETHANOL Negative MX Reference Range: .Phosphatidylethanol (PEth) Negative ng/mL MX Reference Range: .Analyzed compound: PEth 16:0/18:1. 8-kosgzipwc-3-jdjsfj-qi-gmlisab-3-phosphoethanol.Analysis performed by Liquid Chromatography withTandem Mass Spectrometry [...] was developed and its performance characteristicsdetermined by [employer]. It has not been cleared or approvedby the Food and Drug Administration.Performed at: [employer] [address] [id number] Director: Clau Abdalla [facility], Phone: [phone] at: [address] [id number] Director: Red Graham PhD, Phone: [phone] Start: 08-11-[address] Olive Valera [...] Start: 08-09-2024 Bilirubin direct Perlita A Armijo CHOPPED STRAND OPERATOR-SERVICE RIG OPERATOR Work Phone: Start: 08-09-2024 CBC AND ELECTRONIC DIFF Les Bosch MD Work Phone: Start: 08-09-2024 Complete blood count with white cell differential, automated Les Bosch MD Work Phone: Start: 08-09-2024 Drug screen quantitative tacrolimus Morg an E Errol PA-C Work Phone: Start: 08-09-2024 MANUAL DIFF Les Bosch MD Work Phone: Start: 08-08-2024 Ct thorax w/o contrast material Elizabeth Barcenas CHOPPED STRAND OPERATOR-SERVICE RIG OPERATOR Work Phone: Start: 08-08-2024 Bilirubin direct Perlita A Armijo CHOPPED STRAND OPERATOR-SERVICE RIG OPERATOR Work Phone: Start: 08-08-2024 CBC AND ELECTRONIC DIFF Les Bosch MD Work Phone: Start: 08-08-2024 Complete blood count with white cell differential, automated Les Bosch MD Work Phone: Start: 08-08-2024 Drug screen quantitative tacrolimus Morg an E Houston PA-C Work Phone: Start: 08-07-2024 Bilirubin direct Perlita A Armijo CHOPPED STRAND OPERATOR-SERVICE RIG OPERATOR Work Phone: Start: 08-07-2024 CBC AND ELECTRONIC DIFF Les Bosch MD Work Phone: Start: 08-07-2024 Complete blood count with white cell differential, automated Les Bosch MD Work Phone: Start: 08-07-2024 Drug screen quantitative tacrolimus Morg an E Houston PA-C Work Phone: Start: 08-06-2024 Bilirubin direct Perlita Jimbo Adrián CHOPPED STRAND OPERATOR-SERVICE RIG OPERATOR Work Phone: Start: 08-06-2024 CBC AND ELECTRONIC DIFF Les Bosch MD Work Phone: Start: 08-06-2024 Complete blood count with white cell differential, hair Bosch MD Work Phone: Start: 08-06-2024 Drug screen quantitative tacrolimus Morg an E Errol PA-C Work Phone: Start: 08-06-2024 MANUAL DIFF Les Bosch MD Work Phone: Start: 08-05-2024 Mri abdomen w/o contrast material Leroy Holland Houston PA-C Work Phone: Start: 08-05-2024 Inf agent det nucleic acid clostridium amp probe Cici Key PA-C Work Phone: Start: 08-05-2024 Bilirubin direct Perlita Jimbo Adrián CHOPPED STRAND OPERATOR-SERVICE RIG OPERATOR Work Phone: Start: 08-05-2024 CBC AND ELECTRONIC DIFF Les Bosch MD Work Phone: Start: 08-05-2024 Complete blood count with white cell differential, hair Bosch MD Work Phone: Start: 08-05-2024 Drug screen quantitative tacrolimus Morg an E Houston PA-C Work Phone: Start: 08-05-2024 Iaad ia histoplasm capsulatum Carmen schuster MD Work Phone: Start: 08-04-2024 Bilirubin direct Perlita Armijo CHOPPED STRAND OPERATOR-SERVICE RIG OPERATOR Work Phone: Start: 08-04-2024 CBC AND ELECTRONIC DIFF Les Bosch MD Work Phone: Start: 08-04-2024 Complete blood count with white cell differential, automated Les Bosch MD Work Phone: Start: 08-04-2024 Drug screen quantitative tacrolimus Morg an E Errol PA-C Work Phone: Start: 08-03-2024 POUCHOSCOPY Perlita Armijo CHOPPED STRAND OPERATOR-SERVICE RIG OPERATOR Work Phone: Start: 08-03-2024 Level iv surg pathology gross&microscopic exam Dipak Banerjee MD Work Phone: Start: 08-03-2024 Drug screen quantitative tacrolimus Morg an E Houston PA-C Work Phone: Start: 08-03-2024 Bilirubin direct Perlita Armijo CHOPPED STRAND OPERATOR-SERVICE RIG OPERATOR Work Phone: Start: 08-03-2024 CBC AND ELECTRONIC [...] Work Phone: Comment on above: Test Ordered: [id number] Phosphatidylethanol (PEth)PHOSPHATIDYLETHANOL Negative MX Reference Range: .Phosphatidylethanol (PEth) Negative ng/mL MX Reference Range: .Analyzed compound: PEth 16:0/18:1. 1-sgmfvghpy-0-ywslef-ob-mfvxeuq-3-phosphoethanol.Analysis performed by Liquid Chromatography withTandem Mass Spectrometry [...] was developed and its performance characteristicsdetermined by [facility]. It has not been cleared or approvedby the Food and Drug Administration.Performed at: [employer] [address] [id number] Director: Clau Abdalla [facility], Phone: [phone] at: [facility] [employer] [id number] Director: Red Graham PhD, Phone: [phone] Start: 06-27-2024 Flow cytometry cell surf marker [...] 06-23-2024 Iadna hepatitis c quant & reverse dye range tender Dr. Olive Valera DO Work Phone: Comment [...] to 1 billion IU/mL TESTING PERFORMED AT [facility]. ORIGINAL REPORT ON FILE IN LAB CONTAINS ADDITIONAL TEST SITE INFORMATION. Start: 06-03-2024 Merfaiza VALERA Comment on above: Performed By: #### BFLD ####[facility] (DEFAULT)[address] [place] [address] Start: 06-03-2024 Antibody screen OLIVE VALERA Comment on above: Performed By: #### XM ####[facility] (DEFAULT)[address] [place] [address] Start: 05-25-2024 Antibody screen OLIVE VALERA Comment on above: Result Comment: @05/25/24 04:48 by HI12: Performed By: #### I [id number], XM ####[facility] (DEFAULT)[address] [place] [address] Start: 05-13-2024 Flexible sigmoidoscopy Babs Marley MD [...] Comment on above: Performed By: #### XM ####[facility] (DEFAULT)[address] [place] [address] Start: 03-15-2024 End: 03-15-2024 Albumin serum plasma/whole blood Babs Marley MD Work Phone: Comment on above: Order Comment: Transplant coordinators s hould order for males over 50 years old Result Comment: This test was performed on the Right90 Immunoassay platform which is a 2-step sandwich chemiluminescent immunoassay. It is important to note that assays using different manufacturers and/or methods may not be comparable. Performed By: #### E PSA, CA199 ####[facility] (DEFAULT)[address] [place] [address] Start: 03-15-2024 Assay of ethanol Babs Marley [...] the presence orabsence of malignant disease.Performed at: [place] [id number] Director: Red Graham PhD, Phone: [phone] Start: 05-14-[address] Olive Valera DO Work Phone: Start: 02-09-2023 POUCHOSCOPY Kiah Rushing CHOPPED STRAND OPERATOR-SERVICE RIG OPERATOR Work Phone: Start: 06-06-2021 Assay of magnesium [...] Author Start: 08-22-2029 Lipid panel LIPID SCREENING [facility] Start: 04-24-2025 End: 04-24-2025 Patient encounter procedure 04/24/2025 2:00 PM EST Office Visit [facility] Transplant [facility] Sp[facility] [address] [place] [address] [facility] Transplant [facility] Start: 03-15-2025 Prostate specific antigen measurement PROSTATE CANCER SCREENING DISCUSSION [facility] Start: 03-08-2025 End: 03-08-2025 Patient encounter procedure 03/08/2025 11:00 AM EST Office Visit [facility] [address] [place] [address] Kiah Rushing, CHOPPED STRAND OPERATOR-ROME [address] [place] [address] [facility] Start: 02-17-2025 End: 02-17-2025 Admission to same day surgery center 02/17/2025 1:48 PM EST - 02/17/2025 2:34 PM EST Surgery [facility] [address] [place] [address] Miroslava Joiner MD [address] [place] [address] EXAM UNDER ANESTHESIA ANORECTAL [facility] Comment on above: EXAM UNDER ANESTHESIA ANORECTAL Start: 02-17-2025 ambulatory Facility:[facility] Start: 02-17-2025 End: 02-17-2025 Anrct xm surg req anes general spi/edrl dx EXAM UNDER ANESTHESIA ANORECTAL Ulcerative pancolitis with complication Anal pain 02/17/2025 1:48 PM EST [facility] Start: 02-17-2025 Subsequent hospital visit by physician 02/17/2025 1:48 PM EST Hospital Encounter [facility] [address] [place] [address] Miroslava Joiner MD [address] [place] [phone] Ulcerative pancolitis with complication [facility] Comment on above: Ulcerative pancolitis with complication Start: 02-09-2025 Reticulocyte count [facility] Start: 02-03-2025 End: 02-03-2025 ambulatory 02/03/2025 9:00 AM EST Pre-Operative Nurse Assessment Telehealth Pre Procedure Preparation [address] [place] [address] Flaca Castillo, FAIZAN Telehealth Pre Procedure Preparation Start: 01-23-2025 End: 01-23-2025 Patient encounter procedure 01/23/2025 1:20 PM EST Office Visit [facility] Transplant [facility] Sp[facility] [address] [place] [address] [facility] Transplant [facility] Start: 01-11-2025 Cytomegalovirus nucleic acid assay [facility] Start: 01-11-2025 Gamma glutamyl transferase measurement [facility] Start: 01-11-2025 Procedure [facility] Start: 01-11-2025 -Medical Out Work Phone: Start: 01-09-2025 End: 01-09-2025 Patient encounter procedure 01/09/2025 1:20 PM EST Office Visit [facility] Transplant [facility] [address] [place] [address] [facility] Transplant [facility] Start: 01-04-2025 End: 01-04-2025 -Medical Out Work Phone: Start: 12-21-2024 Administration of blood product [facility] Start: 12-06-2024 Reticulocyte count [facility] Start: 11-30-2024 Gamma glutamyl transferase measurement [facility] Start: 11-23-2024 Procedure [facility] Start: 10-31-2024 Influenza vaccination [facility] Start: 10-23-2024 End: 10-23-2024 Patient encounter procedure 10/23/2024 8:00 AM EDT Appointment [facility] [place] [address] [place] [address] Maribel Brooks MD [address] [place], [place] [id number] [facility] Start: 10-15-2024 End: 10-15-2024 Patient encounter procedure 10/15/2024 2:40 PM EDT Appointment [facility] [address] [place] [address] Maribel Brooks MD [address] [place] [address] [facility] Start: 10-11-2024 End: 10-11-2024 Patient encounter procedure 10/11/2024 9:00 AM EDT Office Visit [facility] [address] [place] [address] Babs Marley MD [address] [place] [address] [facility] Start: 10-10-2024 End: 10-10-2024 Patient encounter procedure 10/10/2024 2:00 PM EDT Office Visit [facility] Transplant [facility] [address] [place] [address] [facility] Transplant [facility] Start: 09-26-2024 Procedure [facility] Start: 09-21-2024 End: 09-21-2024 Patient encounter procedure 09/21/2024 2:30 PM EDT Office Visit [facility] [address] [place] [address] Maribel Brooks MD [address] [place] [address] [facility] Start: 09-21-2024 End: 09-21-2025 MR Pelvis WO and W contrast IV MRI PELVIS WITH AND WITHOUT CONTRAST Imaging Urgent Ulcerative pancolitis with other complication Expected: 09/21/2024, Expires: 09/21/2025 [facility] Comment on above: Expected: 09/21/2024, Expires: Start: 08-29-2024 Gamma glutamyl transferase measurement [facility] Start: 08-23-2024 End: 08-23-2024 Patient encounter procedure 08/23/2024 9:00 AM EDT Office Visit [facility] [address] [place] [address] Babs Marley MD [address] [place], [place] [id number] [facility] Start: 08-15-2024 Gamma glutamyl transferase measurement [facility] Start: 08-11-2024 Procedure [facility] Start: 08-08-2024 End: 08-08-2024 Patient encounter procedure 08/08/2024 2:20 PM EDT Office Visit [facility] Transplant [facility] [address] [place] [address] [facility] Transplant [facility] Start: 07-28-2024 Gamma glutamyl transferase measurement [facility] Start: 07-13-2024 End: 07-13-2024 Patient encounter procedure 07/13/2024 2:30 PM EDT Office Visit [facility] Transplant [facility] Sp[facility] [address] [place] [address] Cici De La Cruz, CHOPPED STRAND OPERATOR-SERVICE RIG OPERATOR [address] [place] [address] [facility] Transplant [facility] Sp[facility] Start: 07-13-2024 End: 07-13-2024 Telemedicine consultation with patient 07/13/2024 2:30 PM EDT Telemedicine [facility] Transplant [facility] Sp[facility] [address] [place] [address] Cici De La Cruz, CHOPPED STRAND OPERATOR-SERVICE RIG OPERATOR [address] [place] [address] [facility] Transplant [facility] Start: 2024 Hepatitis B vaccination HEP B VACCINE (1 of 3 - Risk 3-dose series) [facility] Start: 2024 RSV VACCINE (1 - Risk 60-74 years 1-dose series) RSV VACCINE (1 - Risk 60-74 years 1-dose series) [facility] Start: 07-04-2024 End: 07-04-2024 Patient encounter procedure 07/04/2024 2:00 PM EDT Office Visit [facility] Transplant [facility] Sp[facility] [address] [place] [address] Dalia Thomas MD [address] [place] [address] [facility] Transplant [facility] Sp[facility] Start: 06-23-2024 Procedure [facility] Start: 06-20-2024 End: 06-20-2024 Patient encounter procedure 06/20/2024 2:30 PM EDT Office Visit [facility] Transplant [facility] Spine [facility] [address] [place] [address] Dalia Thomas MD [address] [place] [address] [facility] Transplant [facility] Sp[facility] Start: 06-15-2024 End: 06-15-2024 Patient encounter procedure 06/15/2024 3:00 PM EDT Office Visit [facility] [address] [place] [phone] Carmen Castellanos MD [address] [place] [address] [facility] Start: 06-13-2024 End: 06-13-2024 Patient encounter procedure 06/13/2024 1:15 PM EDT Office Visit [facility] Transplant [facility] Sp[facility] [address] [place] [address] Dalia Thomas MD [address] [place] [address] [facility] Transplant [facility] Start: 04-14-2024 End: 04-14-2024 Admission to same day surgery center 04/14/2024 1:00 PM EST - 04/14/2024 2:00 PM EST Surgery [facility] [address] [place] [phone] Ihisschedule, Cath All [address] [place] [address] CORONARY ANGIOGRAM WITH LEFT HEART CATH [facility] Comment on above: CORONARY ANGIOGRAM WITH LEFT HEART CATH Start: 04-14-2024 Subsequent hospital visit by physician 04/14/2024 1:00 PM EST Hospital Encounter [facility] [address] [place] [address] PSC (primary sclerosing cholangitis) [facility] Comment on above: PSC (primary sclerosing cholangitis) Start: 03-24-2024 End: 03-24-2024 Patient encounter procedure [facility] Start: 03-15-2024 End: 03-15-2025 AFP TUMOR MARKER [facility] Comment on above: Expected: 03/15/2024, Expires: Start: 03-15-2024 End: 03-15-2025 CARBOXY THC, URINE, CONFIRMATION [facility] Comment on above: Expected: 03/15/2024, Expires: Start: 03-15-2024 End: 03-15-2025 CMV IGG AB [facility] Comment on above: Expected: 03/15/2024, Expires: Start: 03-15-2024 End: 03-15-2025 HLA TYPING (SOLID ORGAN) [facility] Comment on above: Expected: 03/15/2024, Expires: Start: 03-15-2024 End: 03-15-2025 M TUBERCULOSIS BY QUANTIFERON, BLD [facility] Comment on above: Expected: 03/15/2024, Expires: Start: 03-15-2024 End: 03-15-2025 PHOSPHATIDYLETHANOL (PETH), WHOLE BLOOD QUANTITATIVE [facility] Work Phone: Comment on above: Expected: 03/15/2024, Expires: Start: 01-24-2024 End: 01-24-2024 Patient encounter procedure 01/24/2024 1:20 PM EST Appointment [facility] [address] [place] [address] Babs Marley MD [address] [facility] [address] [place] [address] [facility] Start: 12-23-2023 End: 12-22-2024 AFP TUMOR MARKER [facility] Comment on above: Expected: 12/23/2023 (Approximate), Expi res: 12/22/2024 Start: 12-23-2023 End: 12-22-2024 [id number] PHENOTYPE [facility] Comment on above: Expected: 12/23/2023, Expires: Start: 12-23-2023 End: 12-22-2024 ANTI MITOCHONDRIAL ANTIBODY [facility] Comment on above: Expected: 12/23/2023 (Approximate), Expi res: 12/22/2024 Start: 12-23-2023 End: 12-22-2024 ANTI SMOOTH MUSCLE ANTIBODY [facility] Comment on above: Expected: 12/23/2023 (Approximate), Expi res: 12/22/2024 Start: 12-23-2023 End: 12-22-2024 BONE ALKALINE PHOSPHATASE [facility] Comment on above: Expected: 12/23/2023, Expires: Start: 12-23-2023 End: 12-22-2024 HEREDITARY HEMOCHROMATOSIS(GENE ANALYSIS, COMMON VARIANTS) [facility] Comment on above: Expected: 12/23/2023, Expires: Start: 12-23-2023 End: 12-22-2024 LIVER-KIDNEY MICROSOMAL AB [facility] Comment on above: Expected: 12/23/2023, Expires: Start: 12-23-2023 End: 12-22-2024 MR Abdomen WO and W contrast IV MRI ABDOMEN WITH AND WITHOUT CONTRAST Imaging Urgent PSC (primary sclerosing cholangitis) Expected: 12/23/2023, Expires: 12/22/2024 [facility] Comment on above: Expected: 12/23/2023, Expires: Start: 12-23-2023 End: 12-22-2024 T-TRANSGLUTAMINASE IGG/IGA, AB [facility] Comment on above: Expected: 12/23/2023, Expires: Start: 11-01-2023 COVID-19 VACCINE () COVID-19 VACCINE () [facility] Start: 11-01-2023 COVID-19 VACCINE ( season) COVID-19 VACCINE () [facility] Start: 11-01-2023 Influenza vaccination INFLUENZA VACCINE (#1) [facility] Start: 03-31-2023 Acute hepatitis 2000 panel - Serum [facility] Start: 03-31-2023 Oovwp-8-cthvpshvosm.tumor marker [Units/volume] in Serum or Plasma [facility] Start: 03-31-2023 Angiotensin converting enzyme [Enzymatic activity/volume] in Serum or Plasma [facility] Start: 03-31-2023 Cancer antigen 19-9 measurement [facility] Start: 03-31-2023 Celiac disease screen [facility] Start: 03-31-2023 Ceruloplasmin [Mass/volume] in Serum or Plasma [facility] Start: 03-31-2023 Copper [Moles/volume] in Serum or Plasma [facility] Start: 03-31-2023 Haptoglobin [Mass/volume] in Serum or Plasma [facility] Start: 03-31-2023 Immunoglobulin measurement [facility] Start: 03-31-2023 Lab findings surveillance [facility] Start: 03-31-2023 Mitochondria Ab [Presence] in Serum [facility] Start: 03-31-2023 Procedure [facility] Start: 03-31-2023 Smooth muscle Ab [Presence] in Serum [facility] Start: 03-31-2023 Transferrin [Mass/volume] in Serum or Plasma [facility] Start: 03-31-2023 Vitamin D, 1,25-dihydroxy measurement [facility] Start: 03-31-2023 [facility] Start: 10-31-2022 COVID-19 VACCINE ( season) COVID-19 VACCINE () [facility] Start: 10-31-2022 Influenza vaccination INFLUENZA VACCINE (#1) [facility] Start: 03-13-2022 End: 03-13-2022 Patient encounter procedure 03/13/2022 Office Visit Colon & Rectal Surgery Miroslava Joiner MD [address] [place] [address] [facility] Start: 02-28-2022 End: 02-28-2022 Admission to same day surgery center 02/28/2022 Surgery Multispecialty Miroslava Joiner MD [address] [place] [address] EXAM UNDER ANESTHESIA ANORECTAL [facility] Comment on above: EXAM UNDER ANESTHESIA ANORECTAL Start: 02-28-2022 End: 02-28-2022 Anrct xm surg req anes general spi/edrl dx [facility] Start: 02-28-2022 End: 02-28-2022 Ndsc eval intstinal pouch dx w/collj spec spx [facility] Start: 02-28-2022 Subsequent hospital visit by physician 02/28/2022 Hospital Encounter Multispecialty Miroslava Joiner MD [address] [place] [address] Ulcerative pancolitis with other complication [facility] Comment on above: Ulcerative pancolitis with other complic ation Start: 02-07-2022 End: 02-07-2022 ambulatory 02/07/2022 Telemed Clin Support Multispecialty Pre Procedure [facility] Start: 02-04-2022 Colonoscopy COLORECTAL CANCER SCREENING DISCUSSION [facility] Start: 02-04-2022 Screening for malignant neoplasm of colon COLORECTAL CANCER SCREENING DISCUSSION [facility] Start: 12-03-2021 Screening for malignant neoplasm of colon COLONOSCOPY [facility] Start: 10-31-2021 Influenza vaccination [facility] Start: 07-11-2021 End: 07-11-2021 Patient encounter procedure 07/11/2021 Office Visit Colon & Rectal Surgery Miroslava Joiner MD [address] [place] [address] [facility] Start: 06-19-2021 Patient referral [facility] Work Phone: Start: 04-03-2021 Patient referral to dietitian [facility] Start: 10-13-2020 COVID-19 VACCINE (3 - Booster for Justa series) COVID-19 VACCINE (3 - Booster for Justa series) [facility] Start: 07-11-2020 COVID-19 VACCINE (3 - Pfizer risk series) COVID-19 VACCINE (3 - Pfizer risk series) [facility] Start: 07-08-2019 Prostate specific antigen measurement PROSTATE CANCER SCREENING DISCUSSION [facility] Start: 2014 Pneumococcal vaccination PNEUMOCOCCAL VACCINE SERIES (1 of 1 - PCV) [facility] Start: 2014 Prostate specific antigen measurement PROSTATE CANCER SCREENING DISCUSSION [facility] Start: 2014 RSV VACCINE (1 - Risk 50-74 years 1-dose series) RSV VACCINE (1 - Risk 50-74 years 1-dose series) [facility] Start: 2014 Zoster vaccine hzv live for subcutaneous use ZOSTER (SHINGLES) VACCINE (1 of 2) [facility] Start: 2004 Fasting lipid profile LIPID SCREENING [facility] Start: 2004 Lipid panel LIPID SCREENING [facility] Start: 07-08-1983 Hepatitis B vaccination HEP B VACCINE (1 of 3 - 19+ 3-dose series) [facility] Start: 07-08-1983 Pneumococcal vaccination PNEUMOCOCCAL VACCINE SERIES (1 of 2 - PCV) [facility] Start: 07-08-1983 Third diphtheria, tetanus and acellular pertussis (DTaP) vaccination TDAP (ADULT) [facility] Start: 07-08-1983 Zoster vaccine hzv live for subcutaneous use ZOSTER (SHINGLES) VACCINE (1 of 2) [facility] Start: 1982 Tetanus vaccination TETANUS [facility] Start: 07-08-1979 HIV screening HIV SCREENING DISCUSSION [facility] Start: 1965 Hepatitis B vaccination HEP B VACCINE (1 of 3 - 3-dose series) [facility] Start: 1964 Hepatitis C antibody, confirmatory test HEPATITIS C VIRUS SCREENING [facility] Start: 1964 Hepatitis C screening HEPATITIS C VIRUS SCREENING [facility] Start: 1964 Tetanus vaccination TETANUS [facility] 6-minute walk test EXERCISE-6 UT N. WALK PFT Routine Primary sclerosing cholangitis Pre-transplant evaluation for liver transplant Preoperative evaluation to rule out surgical contraindication 03/24/2024 10:17 AM EST [facility] Work Phone: ALK PHOSPHATASE FRACTIONATED ALK PHOSPHATASE FRACTIONATED Lab Routine 08/05/2024 6:04 AM EDT [facility] Work Phone: End: 12-31-2024 ALK PHOSPHATASE FRACTIONATED ALK PHOSPHATASE FRACTIONATED Lab Routine One Time for 1 Occurrences starting 12/31/2024 until 12/31/2024 [facility] Comment on above: One Time for 1 Occurrences starting 03/2024 until 12/31/2024 ALK PHOSPHATASE FRACTIONATED ALK PHOSPHATASE FRACTIONATED Lab Routine 12/31/2024 7:00 AM EDT [facility] End: 08-09-2024 ALLOSCREEN RECIPIENT (POST TX PRA) ALLOSCREEN RECIPIENT (POST TX PRA) Lab Routine One Time Morning Lab for 1 Occurrences starting 08/09/2024 until 08/09/2024 [facility] Comment on above: One Time Morning Lab for 1 Occurrences s tarting 08/09/2024 until 08/09/2024 ALLOSCREEN RECIPIENT (POST TX PRA) ALLOSCREEN RECIPIENT (POST TX PRA) Lab Routine 08/09/2024 5:46 AM EDT [facility] Antibody to lupus La protein measurement [facility] Antibody to SS-A measurement [facility] ARTERIAL BLOOD GAS, PULMONARY LAB OBTAINED ARTERIAL BLOOD GAS, PULMONARY LAB OBTAINED PFT Routine Primary sclerosing cholangitis Pre-transplant evaluation for liver transplant Preoperative evaluation to rule out surgical contraindication 03/24/2024 9:55 AM EST [facility] Work Phone: End: 02-28-2022 BILIARY BRUSHING WITH OTHER PROCEDURE BILIARY BRUSHING WITH OTHER PROCEDURE Imaging Routine Ulcerative pancolitis with other complication Anal pain One Time for 1 Occurrences starting 02/28/2022 until 02/28/2022 [facility] Comment on above: One Time for 1 Occurrences starting 02/01 until 02/28/2022 End: 12-30-2025 BMP WITHOUT GLUCOSE BMP WITHOUT GLUCOSE Lab Routine Esophageal candidiasis Once a week for 3 Occurrences starting 12/30/2024 until 12/30/2025 [facility] Comment on above: Once a week for 3 Occurrences starting 1 until 12/30/2025 Carcinoembryonic Ag [Mass/volume] in Serum or Plasma [facility] Carcinoembryonic Ag [Mass/volume] in Serum or Plasma [facility] Carcinoembryonic Ag [Mass/volume] in Serum or Plasma [facility] Carcinoembryonic ant igen measurement [facility] Cardiac catheterizat ion study INVASIVE CARDIOVASCULAR PROCEDURE Cardiac Cath Routine PSC (primary sclerosing cholangitis) Ulcerative colitis with complication, unspecified location Hepatic cirrhosis, unspecified hepatic cirrhosis type, unspecified whether ascites present Pre-transplant evaluation for liver transplant Abnormal stress test 04/14/2024 1:10 PM EST [facility] Work Phone: CBC W Auto Different ial panel - Blood [facility] CBC W Auto Different ial panel - Blood [facility] CBC W Auto Different ial panel - Blood [facility] CBC W Auto Different ial panel - Blood [facility] CBC W Auto Different ial panel - Blood [facility] CBC W Auto Different ial panel - Blood [facility] Centromere protein B Ab [Units/volume] in Serum [facility] Chromatin Ab [Units/volume] in Serum or Plasma [facility] Comprehensive metabo lic 1999 panel - Serum or Plasma [facility] metabo lic 1999 panel - Serum or Plasma [facility] CYTOLOGY, NON-SQL SSIS DEVELOPER [facility] Comment on above: Release Upon Ordering for 1 Occurrences starting 02/25/2024, 1 completed Cytomegalovirus DNA [log units/volume] (viral load) in Plasma by JACKY with probe detection [facility] Cytomegalovirus DNA [log units/volume] (viral load) in Plasma by JACKY with probe detection [facility] Cytomegalovirus DNA assay [facility] Cytomegalovirus DNA assay [facility] DNA double strand Ab [Units/volume] in Serum [facility] Ferritin [Mass/volum e] in Serum or Plasma [facility] Ferritin [Mass/volum e] in Serum or Plasma [facility] Ferritin [Mass/volum e] in Serum or Plasma [facility] Ferritin [Mass/volum e] in Serum or Plasma [facility] End: 12-29-2024 GENERAL PROCEDURE GENERAL PROCEDURE Procedures Routine Once for 1 Occurrences starting 12/29/2024 until 12/29/2024 [facility] Work Phone: Comment on above: Once for 1 Occurrences starting 12/30/19 until 12/29/2024 End: 12-30-2025 Hepatic function 2000 panel - Serum or Plasma HEPATIC FUNCTION PANEL Lab Routine Esophageal candidiasis Once a week for 3 Occurrences starting 12/30/2024 until 12/30/2025 [facility] Comment on above: Once a week for 3 Occurrences starting 1 until 12/30/2025 Hepatitis A virus Ig M Ab [Presence] in Serum [facility] Hepatitis B core ant ibody measurement, IgM type [facility] Hepatitis B surface antigen measurement [facility] Hepatitis C antibody measurement [facility] IgA [Mass/volume] in Serum or Plasma [facility] IgE [Units/volume] i n Serum or Plasma [facility] IgG [Mass/volume] in Serum or Plasma [facility] IgM [Mass/volume] in Serum or Plasma [facility] Iron and Iron bindin g capacity panel - Serum or Plasma [facility] Iron and Iron bindin g capacity panel - Serum or Plasma [facility] Iron and Iron bindin g capacity panel - Serum or Plasma [facility] Iron and Iron bindin g capacity panel - Serum or Plasma [facility] Erlinda-1 extractable nuc lear Ab [Units/volume] in Serum [facility] LAB INSTRUCTIONS LAB INSTRUCTION S Lab Routine Esophageal candidiasis Ordered: 12/29/2024 [facility] Comment on above: Ordered: 12/29/2024 Liver stiffness by US.transient elastography [facility] Measurement of immunoglobulin A in serum specimen [facility] Measurement of respi ratory function PFT STANDARD PFT Routine Primary sclerosing cholangitis Pre-transplant evaluation for liver transplant Preoperative evaluation to rule out surgical contraindication 03/24/2024 9:55 AM EST [facility] Work Phone: MR Biliary ducts and Pancreatic duct WO contrast [facility] End: 10-23-2024 MR Pelvis WO and W contrast IV U [facility] Comment on above: 1 Occurrences starting 10/23/2024 until 10/23/2024 Neutrophil cytoplasm ic Ab.classic [Units/volume] in Serum [facility] P-ANCA measurement [facility] Patient Education [facility] Work Phone: Patient referral [facility] Work Phone: Prothrombin time [facility] End: 12-28-2024 Q FEVER ANTIBODY [facility] Work Phone: Comment on above: One Time for 1 Occurrences starting 12/01 until 12/28/2024 Reticulocyte count [facility] Reticulocyte count [facility] Reticulocyte count [facility] End: 02-25-2024 RF Guidance for endoscopy of Biliary ducts and Pancreatic duct-- W contrast retrograde [facility] Work Phone: Comment on above: One Time for 1 Occurrences starting 01/31 until 02/25/2024 Ribonucleoprotein extractable nuclear Ab [Titer] in Serum [facility] SCL-70 extractable n uclear Ab [Units/volume] in Serum by Immunoassay [facility] Daniel extractable nu clear Ab [Presence] in Serum [facility] SURG PATH REQUEST [facility] Comment on above: Release Upon Ordering for 1 Occurrences starting 06/04/2021, 1 completed SURG PATH REQUEST [facility] Comment on above: Release Upon Ordering for 1 Occurrences starting 02/28/2022, 1 completed SURG PATH REQUEST [facility] Comment on above: Release Upon Ordering for 1 Occurrences starting 02/09/2023, 1 completed SURG PATH REQUEST [facility] Comment on above: Release Upon Ordering for 1 Occurrences starting 05/13/2024, 1 completed SURG PATH REQUEST [facility] Comment on above: Release Upon Ordering for 1 Occurrences starting 08/09/2024, 1 completed SURG PATH REQUEST [facility] Comment on above: Release Upon Ordering for 1 Occurrences starting 12/28/2024, 1 completed Tacrolimus [Mass/vol ume] in Blood [facility] Tacrolimus [Mass/vol ume] in Blood [facility] Tacrolimus [Mass/vol ume] in Blood [facility] Tacrolimus [Mass/vol ume] in Blood [facility] Tacrolimus [Mass/vol ume] in Blood [facility] Tissue transglutamin ase IgA Ab [Units/volume] in Serum [facility] End: 02-26-2024 TUMOR HOTSPOT MUTATION PANEL TUMOR HOTSPOT MUTATION PANEL Lab Routine PSC (primary sclerosing cholangitis) One Time Morning Lab for 1 Occurrences starting 02/26/2024 until 02/26/2024 [facility] Comment on above: One Time Morning Lab for 1 Occurrences s tarting 02/26/2024 until 02/26/2024 TUMOR HOTSPOT MUTATI ON PANEL TUMOR HOTSPOT MUTATION PANEL Lab Routine PSC (primary sclerosing cholangitis) 02/25/2024 10:16 AM EST [facility] Vitamin B12 measurement [facility] Payers Date Payer Category Payer Managed Care (unspecified) [id number] 2021 Unknown [facility] [employer] [id number] 2021-Present [address] [place] [address] [id number] 2020 Self-pay [id number] 2020 Unknown [id number] 1964 Unknown [id number] .16.840.1.547183.3.579.2 .594 1964 Unknown [id number] .840.1.926808.3.579.2 .594 1964 Unknown [id number] 2.840.1.793344.3.579.2 .594 1964 Unknown [id number] .0.1.914909.3.579.2 .594 1964 Unknown [id number] .840.1.179106.3.579.2 .594 1964 Unknown [id number] .0.1.238849.3.579.2 .594 1964 Unknown [id number] .0.1.660372.3.579.2 .594 1964 Unknown [id number] 04.17.830.1.818505.3.579.2 .594 1964 Unknown [id number] .0.1.578429.3.579.2 .594 1964 Unknown [id number] .1.485332.3.579.2 .594 1964 Unknown [id number] 04.17.830.1.070208.3.579.2 .594 1964 Unknown [id number] 04.17.830.1.055544.3.579.2 .594 1964 Unknown [id number] .840.1.041856.3.579.2 .594 1964 Unknown [id number] .0.1.793936.3.579.2 .594 1964 Unknown [id number] .840.1.946017.3.579.2 .594 1964 Unknown [id number] 840.1.027322.3.579.2 .594 1964 Unknown [id number] 840.1.474989.3.579.2 .594 1964 Unknown [id number] 2.840.1.750381.3.579.2 .594 1964 Unknown [id number] 2.840.1.484095.3.579.2 .594 1964 Unknown [id number] 2.840.1.090946.3.579.2 .594 1964 Unknown [id number] 2.840.1.089080.3.579.2 .594 1964 Unknown [id number] 2.840.1.027628.3.579.2 .594 1964 Unknown [id number] 2.840.1.682157.3.579.2 .594 1964 Unknown [id number] 2840.1.320410.3.579.2 .594 1964 Unknown [id number] 2.840.1.013523.3.579.2 .594 1964 Unknown [id number] 840.1.761300.3.579.2 .594 1964 Unknown [id number] 840.1.534633.3.579.2 .594 1964 Unknown [id number] 2840.1.235661.3.579.2 .594 1964 Unknown [id number] .840.1.056017.3.579.2 .594 1964 Unknown [id number] 840.1.842306.3.579.2 .594 1964 Unknown [id number] 2.840.1.301524.3.579.2 .594 1964 Unknown [id number] 2.840.1.736627.3.579.2 .594 1964 Unknown [id number] 2.16.840.1.361433.3.579.2 .594 1964 Unknown [id number] 2.16.840.1.449858.3.579.2 .594 Unknown [id number] Unknown [id number] 2.16.840.1.197770.3.579.2 .462 Unknown [id number] 2.16.840.1.720638.3.579.2 .462 Unknown [id number] 2.16.840.1.258648.3.579.2 .462 Unknown [id number] 2.16.840.1.138039.3.579.2 .462 Unknown [id number] 2.16.840.1.856517.3.579.2 .462 Unknown [id number] 2.16.840.1.049677.3.579.2 .462 Unknown [id number] 2.16.840.1.227454.3.579.2 .462 Unknown [id number] 2.16.840.1.429048.3.579.2 .462 Unknown [id number] 2.16.840.1.528566.3.579.2 .462 Unknown [id number] 2.16.840.1.242718.3.579.2 .462 Unknown [id number] 2.16.840.1.133673.3.579.2 .462 Unknown [id number] 2.16.840.1.539630.3.579.2 .462 Unknown [id number] 2.16.840.1.236071.3.579.2 .462 Unknown [id number] 2.16.840.1.267113.3.579.2 .462 Unknown [id number] 2.16.840.1.841306.3.579.2 .462 Unknown [id number] 2.16.840.1.147257.3.579.2 .462 Unknown [id number] 2.16.840.1.759542.3.579.2 .462 Unknown [id number] 2.16.840.1.730527.3.579.2 .462 Unknown [id number] 2.16.840.1.300692.3.579.2 .462 Unknown [id number] 2.16.840.1.130559.3.579.2 .462 Unknown [id number] 2.16.840.1.328687.3.579.2 .462 Unknown [id number] 2.16.840.1.747576.3.579.2 .462 Unknown [id number] 2.16.840.1.487410.3.579.2 .462 Social History Date Type Detail Facility Start: 02-18-2021 End: 03-31-2023 Tobacco smoking status NHIS Unknown if ever smoked [facility] Start: 1965 Sex Assigned At Male [facility] Start: 01-03-2021 End: 12-21-2024 Tobacco smoking status NHIS Never smoked tobacco [facility] Start: 01-03-2021 End: 12-26-2021 Tobacco use and exposure Smokeless tobacco non-user [facility] Start: 06-05-2021 End: 12-30-2024 Alcohol intake Ex-drinker (finding) [facility] Start: 1965 Sex Assigned At Not on file [facility] Start: 05-25-2021 End: 06-04-2021 Exposure to SARS-CoV-2 (event) Not sure [facility] Start: 02-18-2022 End: 02-28-2022 Exposure to SARS-CoV-2 (event) Unable to assess [facility] Start: 03-13-2022 End: 12-31-2024 History of Social function [facility] Start: 03-13-2022 End: 12-31-2024 Tobacco use panel [facility] Start: 01-17-2024 Gender identity Identifies as male gender (finding) [facility] Start: 01-17-2024 Sexual orientation Heterosexual (fior dc) [facility] Start: 01-01-2021 End: 05-12-2024 Sex Male (finding) [facility] How hard is it for y ou to pay for the very basics like food, housing, medical care, and heating Not hard at all [facility] Medical Equipment Procedure Code Equipment Code Equipment Origin al Text Equipment Identifier Dates 5fr 1 Lumen Microintroducer Power Injectable Cuff Tray - [id number] FDA Start: 12-29-2024 Comment on above: Description: Implant time-out completed by intra-procedural staff including this RN, dealer support technician, and performing physician. The following was completed. [...] 12/26/2024 5:31 PM Marcus Sarkar, FAIZAN No [facility] 12-26-2024 Are you blind, or do you have serious difficulty seeing, even when wearing glasses No 12/26/2024 5:31 PM Marcus Sarkar, FAIZAN No [facility] 12-26-2024 Do you have serious difficulty walking or climbing stairs No 12/26/2024 5:31 PM Marcus Sarkar, FAIZAN No [facility] 12-26-2024 Do you have difficul ty dressing or bathing No 12/26/2024 5:31 PM Marcus Sarkar, RN No [facility] 12-26-2024 Because of a physica l, mental, or emotional condition, do you have difficulty doing errands alone such as visiting a physician's office or shopping No 12/26/2024 5:31 PM Marcus Sarkar, RN No [facility] 08-01-2024 Are you deaf, or do you have serious difficulty hearing No 08/01/2024 7:08 PM Xiomara Cole, FAIZAN No [facility] 08-01-2024 Are you blind, or do you have serious difficulty seeing, even when wearing glasses No 08/01/2024 7:08 PM Xiomara Cole, FAIZAN No [facility] 08-01-2024 Do you have serious difficulty walking or climbing stairs No 08/01/2024 7:08 PM Xiomara Cole, FAIZAN No [facility] 08-01-2024 Do you have difficul ty dressing or bathing No 08/01/2024 7:08 PM Xiomara Cole, FAIZAN No [facility] 08-01-2024 Because of a physica l, mental, or emotional condition, do you have difficulty doing errands alone such as visiting a physician's office or shopping No 08/01/2024 7:08 PM Xiomara Cole, FAIZAN No [facility] 05-25-2024 Are you deaf, or do you have serious difficulty hearing No 05/25/2024 1:00 AM Adam Ojeda, FAIZAN No [facility] 05-25-2024 Are you blind, or do you have serious difficulty seeing, even when wearing glasses No 05/25/2024 1:00 AM Adam Ojeda, FAIZAN No [facility] 05-25-2024 Do you have serious difficulty walking or climbing stairs No 05/25/2024 1:00 AM Adam Ojeda, FAIZAN No [facility] 05-25-2024 Do you have difficul ty dressing or bathing No 05/25/2024 1:00 AM Adam Ojeda, FAIZAN No [facility] 05-25-2024 Because of a physica l, mental, or emotional condition, do you have difficulty doing errands alone such as visiting a physician's office or shopping No 05/25/2024 1:00 AM Adam OjedaFAIZAN No [facility] 06-04-2021 Are you deaf, or do you have serious difficulty hearing No 06/04/2021 4:53 PM Aislinn Villalta RN No [facility] 06-04-2021 Are you blind, or do you have serious difficulty seeing, even when wearing glasses No 06/04/2021 4:53 PM Aislinn Villalta, FAIZAN No [facility] 06-04-2021 Do you have serious difficulty walking or climbing stairs No 06/04/2021 4:53 PM Aislinn Villalta, FAIZAN No [facility] 06-04-2021 Do you have difficul ty dressing or bathing No 06/04/2021 4:53 PM Aislinn Villalta, FAIZAN No [facility] 06-04-2021 Because of a physica l, mental, or emotional condition, do you have difficulty doing errands alone such as visiting a physician's office or shopping No 06/04/2021 4:53 PM Aislinn Villalta, FAIZAN No [facility] Mental Status Date Assessment Result Facility 01-11-2025 Cognitive function Awake [facility] Work Phone: 01-04-2025 Cognitive function Voice/Name [facility] Work Phone: 12-26-2024 Because of a physica l, mental, or emotional condition, do you have serious difficulty concentrating, remembering, or making decisions No 12/26/2024 5:31 PM Marcus Sarkar, FAIZAN No [facility] 08-01-2024 Because of a physica l, mental, or emotional condition, do you have serious difficulty concentrating, remembering, or making decisions No 08/01/2024 7:08 PM Xiomara Cole, FAIZAN No [facility] 05-25-2024 Because of a physica l, mental, or emotional condition, do you have serious difficulty concentrating, remembering, or making decisions No 05/25/2024 1:00 AM Adam Ojeda, FAIZAN No [facility] 04-08-2022 Cognitive function Voice/Name [facility] Work Phone: 06-04-2021 Because of a physica l, mental, or emotional condition, do you have serious difficulty concentrating, remembering, or making decisions No 06/04/2021 4:53 PM EDT Aislinn Liao, RN No [facility] 04-17-2021 Cognitive function Level Of Cons ciousness Awake;Alert;Appropriate;Fo llows Commands [facility] Work Phone: Clinical Notes 01-08-2021 to 12-31-2024 Marylin Mccarthy, [facility] - 12/31/2024 1:29 PM Keely Ruff MD, [...] monitoring outpatient Name: Marylin Mccarthy RPH Phone: [phone] Date/Time: 12/31/2024 1:52 PM I saw and [...] 12/29/2024 INR 1.6 04/28/2024 Explant Path: A. [place] liver, total hepatectomy: Well-established biliary-type cirrhosis with [...] for inflammation. Bx pending. Chaparrita Cesar MD Field Service Technician of Internal Medicine Division of Gastroenterology, Hepatology, and Nutrition Pager: [phone] Care Management Progress Note CM confirmed no changes to the antibiotic prescription already sent yesterday. Informed infusion provider, patient anticipated to discharge home today. Provided call back number if concerns or questions arise to infusion pharmacy. Jessica BELL, RN, [facility] [facility] Lead Clinical Dental Assistant #[phone] [facility] phone Images from the original note were not included. Final Discharge Planning and Transportation Final Discharge Planning Discharge Disposition: Home with Infusion Services at Discharge: Residential Selected Continued Care - Admitted Since 12/26/2024 Dialysis/Infusion Service Provider Services Address Phone Fax Patient Preferred [facility] Infusion and IV Therapy Counts include 234 beds at the [facility] [address] [phone] -- Home Medical Care Service Provider Services Address Phone Fax Patient Preferred [facility] [address] [place], [place] [id number] -- -- Community Agency Name(s) For Handoff: [place] [address] Name For Handoff: Nursing Phone For Handoff: Fax For Handoff: Community Agency Name For Handoff: [facility], an [employer] - IV Antibiotics [address] [place] [address] Contact Name For Handoff: [facility] Phone For Handoff: Fax For Handoff: Plan Discharging home with family support/follow-up/ home health for home IV infusion Line care order/weekly labs/antibiotic scripts uploaded to [facility] Spouse to transport home Bonifacio BELL, FAIZAN Clinical Dental Assistant Hepatobiliary Follow-Up Consult Note IDENTIFYING DATA/REASON FOR [...] anorectal pain for which he saw Dr. oJiner in colorectal surgery. 12/28: EGD, esophageal candidiasis. [...] Relative 45.9 % Lymph Relative 32.5 % [place] Relative 20.0 % Eos Relative 0.0 % Baso Relative 0.0 % Metamyelocyte Relative 0.8 % Segs & Bands, Absolute 1.04 (L) 1.57 - 6.19 K/uL Abs Lymph Manual 0.72 (L) 0.83 - 3.57 K/uL Abs [place] Manual 0.44 0.24 - 0.93 K/uL Abs Eos Manual 0.00 0.00 - 0.48 K\uL Abs Baso Manual 0.00 0.00 - 0.09 K/uL Abs [place] Manual 0.02 <=0.07 K/uL RBC Morphology RBC [...] MSc Professor-Clinical Medicine Department of Medicine [facility], [place], [place] TRANSPLANT SURGERY IMMUNOSUPPRESSION/ PROGRESS NOTE: Date [...] cancer, UC, PSC cirrhosis s/p OLT 05/25/24 ([place]) w/ Janay-en-Y choledochojejunostomy with post op course [...] AM) - Reviewed and agree with registered nurse float pool's recommendations. 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 Perlita Armijo APRN-[facility] Transplant Hepatology Nurse Practitioner For contact information [...] MSc Professor-Clinical Medicine Department of Medicine [facility], [place], [place] Pt to IR via staff Colorectal [...] , PSC, ETOH cirrhosis s/p OLT 05/25/24 ([place]) who presents to [facility] 12/26/24 due to [...] Dr. Hosea Odell Labs: Please have the [employer] or [facility] obtain the following labs and fax to [phone], attention (ID Attending): Dr. Hosea Odell - [...] + Bands,Absolute Auto Abs Lymph Auto Abs [place] Auto Abs Eos Auto Abs Baso Auto Immature Grans Absolute MANUAL DIFF Collection Time: 12/28/24 5:54 AM Result Value Ref Range DIFF STATUS Manual Differential Nucleated RBC 1.0 (H) 0.0 - 0.2 /100 WBC Bands Relative 0.0 % Segs Relative 52.7 % Lymph Relative 20.5 % [place] Relative 26.0 % Eos Relative 0.8 % Baso Relative 0.0 % Segs & Bands, Absolute 1.11 (L) 1.57 - 6.19 K/uL Abs Lymph Manual 0.43 (L) 0.83 - 3.57 K/uL Abs [place] Manual 0.55 0.24 - 0.93 K/uL Abs [...] surgery -Will continue to follow. Perlita Armijo APRN-[facility] Transplant Hepatology Nurse Practitioner For contact information [...] ANORECTAL N/A 02/28/2022 Laterality: N/A; Surgeon: Miroslava Jioner MD; Location: [facility] PERIOP ENDOSCOPY [...] MSc Professor-Clinical Medicine Department of Medicine [facility], [place], [place] TRANSPLANT SURGERY IMMUNOSUPPRESSION/ PROGRESS NOTE: Date [...] cancer, UC, PSC cirrhosis s/p OLT 05/25/24 ([place]) w/ Janay-en-Y choledochojejunostomy, complicated post LT course [...] AM) - Reviewed and agree with registered nurse float pool's recommendations. 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 : Yes Advanced Care Planning Has the patient completed Advance Directives?: Not Completed Medication Management Does the patient have prescription insurance coverage? : Yes Is the patient on Anticoagulation? : No [id number] [place] [address] - [phone] [facility] [address] [facility] [facility] [address] Living Environment and Support System Is the patient from a facility or alf?: No Living Environment: House Patient Caregiving Responsibilities: [...] continue to follow as needed. GABBY Belcher, CAPTAIN CANNERY TENDER [facility]R Available by Secure Chat NUTRITION ASSESSMENT Nutrition Recommendations and Plan of Care: 1. Resume Regular diet per care team. 2. Ensure Plus TID (350 kcal, 13 gm protein each) - Encourage soft, yvmk-iq-qtqbjqkf food choices 3. RD to follow. Jc Munson Emelyn is a 59 y.o. 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 ([place]) w/ Janay-en-Y choledochojejunostomy, complicated post LT course [...] Lower Back, Midaxillary Line): deferred Muscle Wasting: Orthodoxy Region (Temporalis Muscle): severe Clavicle Bone Region (Pectoralis Major, Trapezius Muscles): severe Shoulder and Acromion Process Region (Deltoid Muscle): severe Dorsal Hand (Interosseous Muscle): moderate Scapular Bone Region (Trapezius, Supraspinatus, Infraspinatus Muscles): deferred Anterior Thigh and Patellar Region (Quadriceps Muscles): severe Posterior Calf Region (Gastrocnemius Muscle): severe Estimated Nutrition Needs: Weight Used: 45 kg- actual body weight Energy: 4211-0672 (30-35 kcal/kg) Protein: 54-67.5 (1.2-1.5 g/kg) Fluid: Per provider Malnutrition Statement: Malnutrition criteria met: Does the patient meet criteria for malnutrition: Yes Etiology of Malnutrition: Chronic Illness Malnutrition Severity: Severe Protein-Calorie Malnutrition (POA) as evidenced by clinical characteristics: Subcutaneous Fat Loss: Severe Muscle Mass Loss: Severe *Based on The Academy and ASPEN Indicators to Diagnose Malnutrition (AAIM) criteria (2012) Concepción Sampson Grand Scribe Contact: IHIS Message Cosigned by Torie Giles RD at 12/27/2024 12:49 PM EDT Associated attestation - Torie Giles RD - 12/27/2024 12:49 PM EDT Addendum: I have independently reviewed and edited this student's documentation. I agree with the assessment and plan. Torie Giles RD, LD Contact: Pager# [phone] or IHIS messages Summary: Pharmacy Med Rec [...] further questions. Name: Vicki Todd Phone #: [phone] Date/Time: 12/27/2024 9:21 AM Time Spent: 25 minutes Cosigned by Nazia Ng RP at 12/27/2024 2:59 PM EDT Associated attestation - Nazia Ng [facility] - 12/27/2024 2:59 PM EDT Department of Pharmacy Admission Medication Reconciliation Note Patient: Jc Dunaway Room[facility]Bed[facility]A Updated WATCH DIAL STONER Med List: Prior to Admission Medications Prescriptions [...] reviewed the home medication list with the Hedge Fund Accountant. The home medication list status is: complete and home med list marked as reviewed . All changes to the home medication list have been updated in IHIS. Please feel free to contact me with any further questions. Name: Nazia Ng RPH Phone #: [employer] Date/Time: 12/27/2024 2:58 PM Department of Pharmacy [...] interaction. Name: Nazia Ng RPH Phone #: [employer] Date/Time: 12/27/2024 6:37 AM documented in this encounter [facility] 12-31-2024 Nurse Note IV access removed. Patient has received all discharge instructions and needed prescriptions. After-care information reviewed. Patient denies any questions at this time. BENJY and AVS faxed to [facility]. Unable to give report. Patient has been discharged with all of their belongings.' [facility] 12-31-2024 Miscellaneous Notes IV access removed. Patient has received all discharge instructions and needed prescriptions. After-care information reviewed. Patient denies any questions at this time. BENJY and AVS faxed to [facility]. Unable to give report. Patient has [...] a financial relationship with discharging hospital? No [facility], an [employer] - IV Antibiotics [address], [address], [place] [address] Bonifacio EBLL RN Clinical Dental Assistant Images from the original note were not [...] a financial relationship with discharging hospital? No [facility] nursing home for home IV infusion [address] [place] [address] Bonifacio BELL RN Clinical Dental Assistant Interventional Radiology procedure completed with IR Attending Yue of right single lumen power line catheter placement. Power line aspirated blood and flushed with normal saline per protocol. Pt tolerated procedure with local numbing agent and IV sedation medications. Pt to travel to [facility] after phase I recovery. Post procedure orders in place including line clearance okay to use line. Interventional Radiology Pre Procedure Workup [facility] record librarian [id number] - [facility] record librarian [id number] - Vascular Access Nurse [id number] - [place] Vascular Access Nurse [id number] Procedure: Single lumen power line Laterality: N/A Approving MD: Yue Approved for date: 12/29 Routine or [facility]: Sedation: moderate Weight: 94# Pt able to lay flat: yes Consentable? yes PLEASE BE AWARE THAT TIME LISTED IN PT CALENDAR DOES NOT REFLECT ACTUAL TIME IR POT FLUXER WILL SEND FOR THE PATIENT EMERGENT CASES [...] 06/04/2021, PSC, ETOH cirrhosis s/p OLT 05/25/24 ([place]). Now s/p pouchoscopy (12/28/24). The j-pouch appeared normal and healthy. Inflammation and ulcerations observed in rectum. Plan: - Recommend suppository steroids for rectal inflammation - Imodium for frequent bowel movements - EUA no longer indicated; case request canceled. - Okay for regular diet - Rest of care per primary team - CRS will continue to follow Plan was discussed with the attending radiation therapist, Dr. Joiner. Les Bosch MD General Surgery [...] 13 gm protein each) - Encourage soft, vfmo-kq-hxaycmpe food choices 3. RD to follow. Problem: [...] here yet, but is ready. Thank you! [phone] Liss Wallis RN Problem: Adult Inpatient Plan of Care Goal: Plan of Care Review Outcome: Progressing Flowsheets (Taken 12/26/20242133) Progress: improving Plan of Care Reviewed With: patient Goal: Patient-Specific Goal (Individualized) Outcome: Progressing Goal: Absence of Hospital-Acquired Illness or Injury Outcome: Progressing Goal: Optimal Comfort and Wellbeing Outcome: Progressing Goal: Readiness for Transition of Care Outcome: Progressing Paged KENNEDY service, Humble MILIAN: Jc Dunaway, 1010, TRO. PT with type and screen sent, notified 2U RBCs ready in blood bank, but PT has not yet been consented. Thank you. Liss RN [phone] Liss Wallis RN On admission to R1010, [...] when available. documented in this encounter [facility] 12-30-2024 Nurse Note Images from the [...] discharging hospital? No [facility], an [employer] - IV Antibiotics [address], [address], [place] [address] Bonifacio BELL RN Clinical Dental Assistant [facility] 12-30-2024 Nurse Note Images from the original [...] a financial relationship with discharging hospital? No [facility] - nursing home for home IV infusion [address] [place] [address] Bonifacio BELL RN Clinical Dental Assistant [facility] 12-29-2024 Nurse Note Interventional Radiology procedure completed with IR Attending Yue of right single lumen power line catheter placement. Power line aspirated blood and flushed with normal saline per protocol. Pt tolerated procedure with local numbing agent and IV sedation medications. Pt to travel to [facility] after phase I recovery. Post procedure orders in place including line clearance okay to use line. [facility] 12-28-2024 Hospital Discharge instructions Kat Gamino APRN-[facility] - 12/28/2024 9:17 PM EDT CONTACTS POST TRANSPLANT OFFICE Local: [phone] Out of town: Post Transplant office hours are from 8:00AM - 4:00PM Thursday - Thursday. Service is also available for urgent calls after 4:00PM and on weekends. APPOINTMENTS Our Transplant clinic maintains a very full schedule and our provider schedules are often full. Please call us at [phone] if you anticipate being more than 15 [...] the rectum. documented in this encounter [facility] 12-28-2024 Plan of care note Interventional Radiology Pre Procedure Workup [facility] record librarian [id number] - [facility] record librarian [address] - Vascular Access Nurse [address] - [place] Vascular Access Nurse [id number] Procedure: Single lumen power line Laterality: N/A Approving MD: Yue Approved for date: 12/29 Routine or [facility] Sedation: moderate Weight: 94# Pt able to lay flat: yes Consentable? yes PLEASE BE AWARE THAT TIME LISTED IN PT CALENDAR DOES NOT REFLECT ACTUAL TIME IR POT FLUXER WILL SEND FOR THE PATIENT EMERGENT CASES [...] no surgery [2] No Known Allergies [facility] 12-28-2024 Consult note Formatting of th [...] made aware. PICC pager [phone] PIV pager [phone] [facility] 12-28-2024 Consult note Formatting of th [...] midline or PICC. Recommend tunneled line for fci therapy. [facility] and RN made aware. PICC pager [phone] PIV pager [phone] Associated Order(s): IP CONSULT TO INFECTIOUS DISEASE [...] 06/04/2021, PSC, ETOH cirrhosis s/p OLT 05/25/24 ([place]), prior positive Q fever antibody s/p Doxycycline [...] has active Q fever. Please message via [employer] secure chat or page with any questions or concerns. Hosea Odell DO Field Service Technician Division of Infectious Disease Associated Order(s): IP [...] Relative 28.7 % Lymph Relative 36.9 % [place] Relative 33.6 % Eos Relative 0.8 % Baso Relative 0.0 % Segs & Bands, Absolute 0.51 (L) 1.57 - 6.19 K/uL Abs Lymph Manual 0.66 (L) 0.83 - 3.57 K/uL Abs [place] Manual 0.60 0.24 - 0.93 K/uL Abs [...] COMPONENT TYPE Red Cells, Leukoreduced UNIT NUMBER [id number] UNIT STATUS transfused PRODUCT CODE [id number] Product ABO/RH(D) NUMBER 9499 EXPIRATION DATE [id number] ABO/RH(D) TYPE OPOS Product ABO/RH(D) ONEG Unit Compatibility Compatibile BLOOD COMPONENT TYPE Red Cells, Leukoreduced UNIT NUMBER [id number] UNIT STATUS transfused PRODUCT CODE [id number] Product ABO/RH(D) NUMBER 9499 EXPIRATION DATE 130783092025 ABO/RH(D) TYPE OPOS Product ABO/RH(D) ONEG Unit [...] Negative Negative Ketones Urine Negative Negative Specific [place] Urine 1.020 1.001 - 1.035 Blood Urine [...] surgery -Will continue to follow. Perlita Armijo APRN-[facility] Transplant Hepatology Nurse Practitioner For contact information [...] MSc Professor-Clinical Medicine Department of Medicine [facility], [place], [place] documented in this encounter [facility] 12-28-2024 Consult note Associated Order (s): [...] 06/04/2021, PSC, ETOH cirrhosis s/p OLT 05/25/24 ([place]), prior positive Q fever antibody s/p Doxycycline [...] POUCH DIAGNOSTIC N/A 02/28/2022 Laterality: N/A; Surgeon: Miroslvaa Joiner MD; Location: [facility] PERIOP [...] has active Q fever. Please message via [employer] secure chat or page with any questions or concerns. Hosea Odell DO Field Service Technician Division of Infectious Disease [facility] 12-28-2024 Plan of care note Colorectal SURGERY - PLAN OF CARE Jc Dunaway is a 59 yom with a PMH of colon cancer, UC with IPAA by Dr. Joiner in 2020, loop ileostomy closure on 06/04/2021, PSC, ETOH cirrhosis s/p OLT 05/25/24 ([place]). Now s/p pouchoscopy (12/28/24). The j-pouch appeared normal and healthy. Inflammation and ulcerations observed in rectum. Plan: - Recommend suppository steroids for rectal inflammation - Imodium for frequent bowel movements - EUA no longer indicated; case request canceled. - Okay for regular diet - Rest of care per primary team - CRS will continue to follow Plan was discussed with the attending radiation therapist, Dr. Joiner. Les Bosch MD General Surgery [facility] 12-28-2024 Plan of care note Problem: Adult Inpatient Plan of Care Goal: Plan of Care Review Outcome: Progressing Goal: Patient-Specific Goal (Individualized) Outcome: Progressing Goal: Absence of Hospital-Acquired Illness or Injury Outcome: Progressing Goal: Optimal Comfort and Wellbeing Outcome: Progressing Goal: Readiness for Transition of Care Outcome: Progressing Problem: Oral Intake Inadequate Goal: Improved Oral Intake Outcome: Progressing [facility] 12-27-2024 Plan of care note Problem: Oral Intake Inadequate Goal: Improved Oral Intake Outcome: Progressing Nutrition Recommendations and Plan of Care: 1. Resume Regular diet per care team. 2. Ensure Plus TID (350 kcal, 13 gm protein each) - Encourage soft, cmfr-xx-ijeqtikh food choices 3. RD to follow. [facility] 12-27-2024 Consult note Associated Order (s): IP [...] Relative 28.7 % Lymph Relative 36.9 % [place] Relative 33.6 % Eos Relative 0.8 % Baso Relative 0.0 % Segs & Bands, Absolute 0.51 (L) 1.57 - 6.19 K/uL Abs Lymph Manual 0.66 (L) 0.83 - 3.57 K/uL Abs [place] Manual 0.60 0.24 - 0.93 K/uL Abs [...] COMPONENT TYPE Red Cells, Leukoreduced UNIT NUMBER [id number] UNIT STATUS transfused PRODUCT CODE [id number] Product ABO/RH(D) NUMBER 9500 EXPIRATION DATE [id number] ABO/RH(D) TYPE OPOS Product ABO/RH(D) ONEG Unit Compatibility Compatibile BLOOD COMPONENT TYPE Red Cells, Leukoreduced UNIT NUMBER [id number] UNIT STATUS transfused PRODUCT CODE [id number] Product ABO/RH(D) NUMBER 9500 EXPIRATION DATE 241273010703 ABO/RH(D) TYPE OPOS Product ABO/RH(D) ONEG Unit [...] Negative Negative Ketones Urine Negative Negative Specific [place] Urine 1.020 1.001 - 1.035 Blood Urine [...] surgery -Will continue to follow. Perlita Armijo APRN-[facility] Transplant Hepatology Nurse Practitioner For contact information [...] Laterality: N/A; Surgeon: Dalia Thomas MD; Location: [facility] MAIN OR EXAM UNDER ANESTHESIA ANORECTAL [...] Laterality: N/A; Surgeon: Miroslava Joiner MD; Location: [facility] ENDOSCOPY HIP REPLACEMENT Left 2005 COLONOSCOPY [...] MSc Professor-Clinical Medicine Department of Medicine [facility] 12-27-2024 Plan of care note Problem: Adult Inpatient Plan of Care Goal: Plan of Care Review Outcome: Progressing Goal: Patient-Specific Goal (Individualized) Outcome: Progressing Goal: Absence of Hospital-Acquired Illness or Injury Outcome: Progressing Goal: Optimal Comfort and Wellbeing Outcome: Progressing Goal: Readiness for Transition of Care Outcome: Progressing [facility] 12-26-2024 Nurse Note Ok to proceed with blood administration per Humble MILIAN. Blood Transfusion report sent to blood bank. Liss Wallis RN [facility] 12-26-2024 Nurse Note Humble Ohara MD: Lisa Kidd, KENNEDY. PT with fever of 100.4, just gave tylenol, are you okay with starting blood now, or do you want to wait a bit for a temp recheck? Blood isn't up here yet, but is ready. Thank you! [phone] Liss Wallis RN [facility] 12-26-2024 Plan of care note Problem: Adult Inpatient Plan of Care Goal: Plan of Care Review Outcome: Progressing Flowsheets (Taken 12/26/20242133) Progress: improving Plan of Care Reviewed With: patient Goal: Patient-Specific Goal (Individualized) Outcome: Progressing Goal: Absence of Hospital-Acquired Illness or Injury Outcome: Progressing Goal: Optimal Comfort and Wellbeing Outcome: Progressing Goal: Readiness for Transition of Care Outcome: Progressing [facility] 12-26-2024 Nurse Note Paged Humble Mac MD: Lisa Kidd, KENNEDY. PT with type and screen sent, notified 2U RBCs ready in blood bank, but PT has not yet been consented. Thank you. Liss GLORIA [phone] Liss Wallis RN [facility] 12-26-2024 History and physical note Chief Complaint: Elevated Alkaline Phosphatase, ERCP and anemia workup HPI: Jc Dunaway, 59 yr M w/ PMHx of colon cancer, UC, PSC cirrhosis s/p OLT 05/25/24 ([place]) w/ Janay-en-Y choledochojejunostomy, complicated post LT course who was admitted to [facility] 12/26/24 due to elevated alk phos, ERCP [...] UC, PSC, ETOH cirrhosis s/p OLT 05/25/24 ([place]) who [facility] due to elevated alk phos, [...] MD, MPH at 12/28/2024 5:21 PM EDT [facility] History and physical note Chief Complaint: Elevated Alkaline Phosphatase, ERCP and anemia workup HPI: Jc Dunaway, 59 yr M w/ PMHx of colon cancer, UC, PSC cirrhosis s/p OLT 05/25/24 ([place]) w/ Janay-en-Y choledochojejunostomy, complicated post LT course who was [facility] 12/26/24 due to elevated alk phos, [...] UC, PSC, ETOH cirrhosis s/p OLT 05/25/24 ([place]) who was admitted to [facility] 12/26/24 due [...] Laterality: N/A; Surgeon: Miroslava Joiner MD; Location: [facility] MAIN OR SIGMOIDOSCOPY DIAGNOSTIC N/A 02/04/2021 [...] PM EDT documented in this encounter [facility] 12-26-2024 Nurse Note On admission to [...] closest to nurses station when available. [facility] 12-21-2024 Radiology Diagnostic study note [facility] 12-21-2024 Discharge summary Note Date/Time December 21, 2024 8:35pm [facility] Medical Records Department [address] [place] [address] Emergency Department Summary 12/21/24 MR#: [id number] Acct: [id number] Name: JC DUNAWAY Rep #:[id number] : [...] done in June of this year at [facility]. States that he takes his antirejection meds [...] center for an iron infusion today when [facility] called with labs that were drawn yesterday that showed a hemoglobin of 5.8 and he was told to come here. He states he received his full iron infusion. [facility] Medical History Hemorrhoids History of steroid therapy [...] rarely substance use type: does not use cruz/christianity: Nondenominational seatbelt use: always do you feel safe [...] on abdomen. : Rectal exam done with building construction contractor RN at bedside. No gross blood noted [...] isappropriate that the patient be transferred to [facility] where the liver transplant was done [...] Clarity Clear Urine pH 6.0 Ur Specific Novinger 1.010 Urine Protein 15 H Urine Glucose [...] IMPRESSION: No acute abdominopelvic abnormalities. Reading Location: [facility] Discharge Plan Triage Chief Complaint: GI [...] Referrals: Olive Valera DO [Primary Care Provider, [facility]] Print Language: Lithuanian What to do if you have Problems For any increased pain, shortness of breath, bleeding, nausea or vomiting, chestpain, or any unexpected problems, contact your Primary Care Provider. Call [facility] ([phone]) or report to the closest Emergency Room. Call 911 if necessary. 12/21/24 1738 <Electronically signed by Michelle Barrera MD> Cosigner Signature (if applicable): CC: Dr. Olive Valera MD ~ Signed ADDENDUM by Dr. Rhett Liang DO on 12/21/24 at 1935 Patient was signed out to me by Dr. Barrera. It was reported that the patient signed [...] cc: Dr. Olive Valera MD ~* Signed [facility] Work Phone: 1(102) 973-594910-22-2025 Evaluation note* Diagnosis Onset Date Resolution Status Admit Date Cancer of sigmoid colon chronic O ctober 2024 8:41am Iron deficiency anemia due t o chronic blood loss chronic December 21, 2024 8:41am [facility] Services Work Phone: 1([phone]) 223-945808-11-2025 History of Present illness Narrative* Babs Marley [...] Immunization: - Immunization History Administered Date(s) Administered [id number] COVID-19 monovalent vaccine, mRNA, Pfizer, 0.3 ML 05/23/2020, 06/13/2020 - COVID:as above - PCV13/PPV23: needs - Hep A/ Hep B:needs - Flu:defer - Colonoscopy/FSS:uptodate Babs Marley M.D. Field Service Technician of Clinical Medicine Gastroenterology, Hepatology, and Nutrition Pager :[phone] * Kamilah Fernández RN - 10/10/2024 2:00 PM EDT Images from the original note were not included. PREP SHEET FOR LIVER SURGERY & TRANSPLANT HEPATOLOGY CLINIC Patient Name: Jc Dunaway ([id number]) Ward Maid: Shanell Helms Transplant Telesales Advisor: Babs Marley IMMUNOSUPPRESSION & LAB INFORMATION On [...] standing lab order needed? No Preferred lab: [facility] - [address] [place] [address] [facility] [address] COORDINATOR NOTES FOR APPOINTMENT: - Patient needs [...] Used: Steroid Taper Risk Criteria Present: yes [place] Protocol Labs First set due AFTER: 06/22/2024 [...] months Most recent results: DUE: October 2024 SENIOR LIVING IMAGING & PROCEDURE FOLLOW UP COMMENTS History [...] capsules every evening. PREFERRED LAB AND PHARMACY: [facility] - [address] - [place] [address] [facility] [address] [id number] [place] [address] [phone] [facility] [address] [facility] [address], [address] [facility] [address] ROS and SCREEN: Chest Pain: negative Cough: negative SOB: negative Abd Pain: negative Nausea: negative Vomiting: negative Diarrhea: negative Constipation: negative Dysuria: negative Edema: negative Tremors: negative Headaches: negative Wound issues: negative Any diagnosis of cancer/malignancy (any type) in the last year: no Follow with a Technical Sales Advisor? no Have a Primary Care provider? yes Been seen in the last 12 months? yes Alcohol consumption?: no Cigarette smoking, smokeless tobacco or vaping/e-cigarette use?: no Marijuana (any form), CBD oil or street drug use?: no QUESTIONS OR CONCERNS TO ADDRESS WITH PHYSICIAN: documented in this encounterK[facility]08-11-2025 Instructions* Patient Instructions* Favoila Blank RN - 10/10/2024 2:00 PM EDT Medication changes: No changes Labs today, continue weekly Return to clinic 01/23/2025 TRANSPLANT HEPATOLOGY , [facility] as scheduled documented in this encounterKettering [facility]07-23-2025 History of Present illness Narrative* Flaca Matias MA - 09/21/2024 2:30 PM EDT This MA verified patients name and . * Concepción Elliott MD - 09/21/2024 2:30 PM EDT Images from the original note were not included. [facility] New Patient Consultation 09/21/2024 Referring physician: Babs Marley MD [address] [place] [address] PCP: Olive Valera [address] [facility] [address] Reason for consultation visit: Perianal pain Jc Dunaway is a 59 y.o. male with PMH of UC and colon cancer s/p colectomy and PSC s/p liver transplant who presents to the [facility] for initial consultation. Inflammatory Bowel Disease History: Narrative History: History of UC, treated with sulfasalazine for many years with good effect. Underwent 2-stage TAC with IPAA [id number] for dysplasia (Rhys). Also history of PSC [...] Elliott MD PGY-1 Internal Medicine Resident [facility] ATTENDING ATTESTATION: I saw and personally [...] records and coordinating care. Maribel Brooks MD, [facility] Compounder Flavorings of Practicing Md Anesthesiologist Professor [facility] Center Division of Gastroenterology, Hepatology, & Nutrition [facility] documented in this encounterK[facility]07-23-2025 Instructions* Patient Instructions* Maribel Brooks MD - 09/21/2024 2:30 PM EDT Please call [phone] to schedule your imaging test. documented in this encounterKettering [facility]07-23-2025 History of Present illness Narrative* Analisa Donovan [...] ID clinic as needed. Analisa Donovan MD Field Service Technician - Clinical Division of Infectious Diseases Pager #[phone] * Jessica Kenney MA - 09/21/2024 1:00 PM EDT Patient has verified full name and . documented in this encounterKettering [facility]06-23-2025 History of Present illness Narrative* Babs Marley [...] Immunization: - Immunization History Administered Date(s) Administered [id number] COVID-19 monovalent vaccine, mRNA, Pfizer, 0.3 ML 05/23/2020, 06/13/2020 - COVID:as above - PCV13/PPV23: needs - Hep A/ Hep B:needs - Flu:defer - Colonoscopy/FSS:uptodate Babs Marley M.D. Field Service Technician of Clinical Medicine Gastroenterology, Hepatology, and Nutrition Pager :[phone] * Kamilah Fernández RN - 08/22/2024 2:40 PM EDT Images from the original note were not included. PREP SHEET FOR LIVER SURGERY & TRANSPLANT HEPATOLOGY CLINIC Patient Name: Jc Dunaway ([id number]) Ward Maid: Shanell Helms Transplant Telesales Advisor: Babs Marley IMMUNOSUPPRESSION & LAB INFORMATION On [...] order - let me know. Preferred lab: [facility] - [address] [place] [address] [facility] [address] COORDINATOR NOTES FOR APPOINTMENT: - Transition to Hepatology appt - OK to chart changer to Kamilah Munson once seen in clinic. - Discontinue [...] Used: Steroid Taper Risk Criteria Present: yes [place] Protocol Labs First set due AFTER: 06/22/2024 [...] months Most recent results: DUE: October 2024 SENIOR LIVING IMAGING & PROCEDURE FOLLOW UP COMMENTS History [...] every 12 hours. PREFERRED LAB AND PHARMACY: [facility] - [address] [place] [address]. - [address] [address] [id number] [place] [address] [address] [facility] [facility]. [facility] [address] [facility] [address], [address] [place] [address] ROS and SCREEN: Chest Pain: negative Cough: [...] WITH PHYSICIAN: - hemorrhoids documented in this encounterKettering [facility]06-23-2025 Instructions* Patient Instructions* Shaila Payne RN - [...] Return to clinic 10/10/2024 TRANSPLANT HEPATOLOGY 5, [facility] as scheduled documented in this encounterOS[facility]06-18-2025 Evaluation note * Diagnosis Onset Date Resolution Status Admit Date Cancer of sigmoid colon chronic J 2024 9:04am Iron deficiency anemia due t o chronic blood loss chronic August 17 9:04am [facility] Work Phone: 1(796) 605-413806-18-2025 Progress [facility] [address] [place] [address] OFFICE VISIT Date of Service: 08/17/24904 MR#: [id number] Acct: [id number] Name: JC DUNAWAY Rep #: [id number] : 1965 From: Robe benavides MD Age/Sex: 59/M Location: [facility] Status: Signed HPI Subjective Date of Service [...] colon, biopsy:Tubular adenoma MLH-1 (M1)positiveMSH2? (25D12)positiveMSH6? (44)positivePMS2? (FIG4905)positiveKi-67? (30-9)? positive (75%)P53? (DO-7)? ? ? positiveCOX-2? (SP21) ? ? ? positiveThese tests were developed and their performance characteristics determined by [facility].? They may not have been [...] ileostomy is not seen at this time. [facility] Medical History Hemorrhoids History of steroid therapy [...] rarely substance use type: does not use cruz/christianity: Nondenominational seatbelt use: always do you feel safe [...] 96 Oxygen Delivery Method room air Intake Topographical Surveyor Required: No Accompanied by: Self Is patient [...] status post total proctocolectomy January 2021 at [facility] byDr. Johnson. Cancerstage II with no yakov [...] on an annual basis. 4-Screening colonoscopy at [facility], last was in 2024. Robe Zavala MD Field Service Technician, [facility] Divisions of Medical Oncology & Hematology Department of Internal Medicine [place] [address] This note was generated using a voice [...] applicable) CC: Dr. Olive Valera MD ~ [facility]06-18-2025 Progress note Author Robe Zavala [facility] Note Date/Time August 17, 2024 9:31 am [facility] [place] [address] OFFICE VISIT Date of Service: 08/17/2405 MR#: [id number] Acct: [id number] Name: JC DUNAWAY Rep #: [id number] : 1965 From: Robe benavides MD Age/Sex: 59/M Location: [facility] Status: Signed HPI Subjective Date of Service [...] colon, biopsy:Tubular adenoma MLH-1 (M1)positiveMSH2? (25D12)positiveMSH6? (44)positivePMS2? (WAT0609)positiveKi-67? (30-9)? positive (75%)P53? (DO-7)? ? ? positiveCOX-2? (SP21) ? ? ? positiveThese tests were developed and their performance characteristics determined by [facility].? They may not have been [...] ileostomy is not seen at this time. [facility] Medical History Hemorrhoids History of steroid therapy [...] rarely substance use type: does not use cruz/christianity: Nondenominational seatbelt use: always do you feel safe [...] 96 Oxygen Delivery Method room air Intake Topographical Surveyor Required: No Accompanied by: Self Is patient [...] status post total proctocolectomy January 2021 at [facility] byDr. Johnson. Cancer stage II with no [...] on an annual basis. 4-Screening colonoscopy at [facility], last was in 2024. Robe Zavala MD Field Service Technician, [facility] Divisions of Medical Oncology & Hematology Department of Internal Medicine [place] [address] This note was generated using a voice [...] applicable) CC: Dr. Olive Valera MD ~ [employer] Work Phone: 1([phone]) 549-202806-10-2025 History of Present illness Narrative* Marylin Mccarthy, [facility] - 08/09/2024 5:52 PM EDT Department of [...] for LFTs) Name: Marylin Mccarthy RPH Phone: [phone] Date/Time: 08/09/2024 9:47 PM * Nirali Berry [...] patient on 08/09/2024. Nirali Berry RP Specialty ([place]) [phone] Carlos Enrique [phone] [facility] [phone] [facility] Bedside Delivery [phone] Ana [phone] [facility] Bedside Delivery [phone] [place] [phone] [place] [phone] * Perlita Armijo, MAGI-SERVICE RIG OPERATOR - 08/09/2024 11:48 AM EDT Hepatobiliary Follow-Up Consult Note IDENTIFYING DATA/REASON FOR CONSULTATION PATIENT: Jc Dunaway ADMIT DATE: 08/01/2024 TIME OF EVALUATION: 08/09/2024 [...] POUCH DIAGNOSTIC N/A 02/28/2022 Laterality: N/A; Surgeon: Miorslava Joiner MD; Location: [facility] PERIOP [...] Relative 57.8 % Lymph Relative 25.9 % [place] Relative 11.2 % Eos Relative 3.4 % Baso Relative 1.7 % Segs & Bands, Absolute 2.81 1.57 - 6.19 K/uL Abs Lymph Manual 1.26 0.83 - 3.57 K/uL Abs [place] Manual 0.55 0.24 - 0.93 K/uL Abs [...] 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 Q fever antibody positive, now on treatment [...] please call the on-call ID Fellow pager. [facility] Infectious Disease - Thad Perry [...] continued fevers or infection. Please message via [employer] secure chat or page with any questions or concerns. Hosea Odell DO Field Service Technician Division of Infectious Disease * Yolanda Welsh [...] colitis and sigmoid colon cancer s/pJ pouch ([id number], Dr. 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 Q fever antibody positive, awaiting reflex testing. [...] surgery -Will continue to follow. Perlita Armijo APRN-[facility] Transplant Hepatology Nurse Practitioner For contact information [...] Dunaway. Cosigned by Kris Ahmadi MD at 08/08/2024 2:14 PM EDT Associated [...] a physical examination. Kris Ahmadi MD * Elizabeth Barcenas, CHOPPED STRAND OPERATOR-SERVICE RIG OPERATOR - 08/08/2024 10:00 AM EDT TRANSPLANT SURGERY [...] AM) - Reviewed and agree with registered nurse float pool's recommendations. Wound Documentation Any conditions listed below [...] webexchange Cosigned by Hosea Odell DO at 08/08/2024 3:30 PM EDT Associated [...] bring to ID clinic Please message via [employer] secure chat or page with any questions or concerns. Hosea Odell DO Field Service Technician Division of Infectious Disease * Cici Key [...] AM) - Reviewed and agree with registered nurse float pool's recommendations. Wound Documentation Any conditions listed below [...] AM) - Reviewed and agree with registered nurse float pool's recommendations. Wound Documentation Any conditions listed below [...] Georges MD PhD Department of Surgery PGY4 #[id number] * Chaparrita Cesar MD - 08/06/2024 7:26 [...] Laterality: N/A; Surgeon: Miroslava Joiner MD; Location: [facility] ENDOSCOPY COLOPROCTECTOMY TOTAL W/ LOOP ILEOSTOMY OR CREATION ILEAL RESERVOIR LAPAROSCOPIC N/A 02/12/2021 Laterality: N/A; Surgeon: Miroslava Joiner MD; Location: [facility] MAIN OR SIGMOIDOSCOPY DIAGNOSTIC N/A 02/04/2021 Laterality: N/A; Surgeon: Miroslava Joiner MD; Location: [facility] ENDOSCOPY HIP REPLACEMENT Left 2005 COLONOSCOPY [...] -Will continue to follow. Chaparrita Cesar MD Field Service Technician of Internal Medicine Division of Gastroenterology, Hepatology, and Nutrition Pager: [phone] * Marcus Zhu MD, PhD - 08/05/2024 [...] Laterality: N/A; Surgeon: Miroslava Joiner MD; Location: [facility] ENDOSCOPY HIP REPLACEMENT Left 2005 COLONOSCOPY [...] 0.70 (L) 0.83 - 3.57 K/uL Abs [place] Auto 0.44 0.24 - 0.93 K/uL Abs [...] continue to follow. Marcus Zhu MD, PhD Field Service Technician of Clinical Medicine [facility] Division of Gastroenterology, Hepatology and Nutrition * Perlita Armijo, CHOPPED STRAND OPERATOR-SERVICE RIG OPERATOR - 08/04/2024 11:21 AM EDT Hepatobiliary Follow-Up [...] 0.51 (L) 0.83 - 3.57 K/uL Abs [place] Auto 0.35 0.24 - 0.93 K/uL Abs [...] Remainder per note. Marcus Zhu MD, PhD Field Service Technician of Clinical Medicine [facility] Gastroenterology, Hepatology, and Nutrition Pager [phone] * Torie Giles, RD - 08/04/2024 10:31 [...] Lower Back, Midaxillary Line): deferred Muscle Wasting: Orthodoxy Region (Temporalis Muscle): moderate Clavicle Bone Region (Pectoralis Major, Trapezius Muscles): moderate Shoulder and Acromion Process Region (Deltoid Muscle): deferred Dorsal Hand (Interosseous Muscle): moderate Scapular Bone Region (Trapezius, Supraspinatus, Infraspinatus Muscles): deferred Anterior Thigh and Patellar Region (Quadriceps Muscles): deferred Posterior Calf Region (Gastrocnemius Muscle): deferred Estimated Nutrition Needs: Weight Used: 49kg- current body weight Energy: 5774-4248 (30-35 kcal/kg) Protein: 73.5-98 (1.5-2 g/kg) Fluid: Per provider Malnutrition Statement: Does the patient meet criteria for malnutrition: Yes Etiology of Malnutrition: Chronic Illness Malnutrition Severity: Moderate Protein-Calorie Malnutrition (POA) as evidenced by clinical characteristics: Subcutaneous Fat Loss: Moderate Fluid accumulation: Moderate *Based on The Academy and ASPEN Indicators to Diagnose Malnutrition (AAIM) criteria (2012) Torie Giles RD, LD Contact: Page [phone] or [employer] message * Perlita Armijo APRN-SERVICE RIG OPERATOR - 08/03/2024 11:50 AM EDT Hepatobiliary Follow-Up [...] Laterality: N/A; Surgeon: Miroslava Joiner MD; Location: [facility] MAIN OR SIGMOIDOSCOPY DIAGNOSTIC N/A 02/04/2021 Laterality: N/A; Surgeon: Miroslava Joiner MD; Location: [facility] ENDOSCOPY HIP REPLACEMENT Left 2005 COLONOSCOPY [...] Auto 0.93 0.83 - 3.57 K/uL Abs [place] Auto 0.36 0.24 - 0.93 K/uL Abs [...] surgery -Will continue to follow. Perlita Armijo APRN-[facility] Transplant Hepatology Nurse Practitioner For contact information [...] Remainder per note. Marcus Zhu MD, PhD Field Service Technician of Clinical Medicine [facility] Gastroenterology, Hepatology, and Nutrition Pager [phone] * SKYLAR De Leon - 08/02/2024 11:21 [...] Yes Name and Contact information: Flaca Dunaway [phone] Adult Child(sujey), List All Adult Children: Yes Name and Contact information: Cuate Dunaway [phone] Would you like to add additional adult children?: Yes Name and Contact information: Leroy Dunaway [phone] Reviewed and Updated in Demographics? : Yes Advanced Care Planning Has the patient completed Advance Directives?: Not Completed Medication Management Does the patient have prescription insurance coverage? : Yes Is the patient on Anticoagulation? : [id number] [place] [address] [address] [facility] [address] Living Environment and Support System Is the patient from a facility or alf?: No Living Environment: House Patient Caregiving Responsibilities: [...] of non-prescribed substances. Patient continues to have [employer] insurance. Patient denies financial concerns, reports being [...] to follow as needed. GABBY Belcher LSW [facility] 10R Available by Secure Chat * SKYLAR De Leon - 08/02/2024 9:29 AM EDT Care Management Progress Note SW made attempt to meet with Patient and complete IA/readmission assessment. Patient with medical team participating in rounds. Will attempt again later. GABBY Belcher LSW [facility] 10R Available by Secure Chat * [...] interaction. Name: Marylin Mccarthy RPH Phone #: [phone] Date/Time: 08/02/2024 8:38 AM * Vicki Brooks [...] further questions. Name: Vicki Brooks Phone #: [phone] Date/Time: 08/02/2024 8:12 AM Time Spent: 20 minutes Cosigned by Marylin Mccarthy RPH at 08/02/2024 2:40 PM EDT Associated attestation - Marylin Mccarthy RPH - 08/02/2024 2:40 PM EDT Department of Pharmacy Admission Medication Reconciliation Note Patient: Jc Dunaway Room/Bed: 1012/A I have reviewed the home medication list with the Hedge Fund Accountant. The home medication list status is: complete. All changes to the home medication list have been updated in [facility]IS. Updated [facility]ONER Med List: Prior to Admission Medications Prescriptions [...] with any further questions. Name: Marylin Chogalileo [facility] Phone #: [phone] Date/Time: 08/02/2024 2:40 PM documented in this [facility]06-10-2025 Procedure note* Nestor Hernandez MD - 08/09/2024 3:08 PM EDTAssociated Order(s): GENERAL PROCEDURE BODY INTERVENTIONAL RADIOLOGY PROCEDURE NOTE PROCEDURE INDICATION: Pelvic mass PROCEDURE PERFORMED: CT guided needle biopsy. FINDINGS/TARGET: Left perirectal mass SPECIMEN: 18 gauge core needle biopsy passes x 5 DISPOSITION OF SPECIMEN(S): Pathology PLAN: Patient to recovery. Nestor Hernandez MD 08/09/2024 3:08 PM JIGSAWYER(S): Nestor Hernandez MD. CONSENT: Informed consent was obtained prior to the procedure after discussion of the risks, benefits, and alternatives of the procedure, and expected procedure outcomes were discussed with the patient and/orrepresentative. The consent document was placed in chart. DID THIS PROCEDURE REQUIRE A UNIVERSAL PROTOCOL?: Yes. [place] Protocol is required. Preprocedure verification is complete. [...] Interventional Radiology to participate in thispatient's [facility] Work Phone: [phone] Procedure note* Nestor Hernandez MD - 08/09/2024 3:08 PM EDTAssociated Order(s): GENERAL PROCEDURE BODY INTERVENTIONAL RADIOLOGY PROCEDURE NOTE PROCEDURE INDICATION: Pelvic mass PROCEDURE PERFORMED: CT guided needle biopsy. FINDINGS/TARGET: Left perirectal mass SPECIMEN: 18 gauge core needle biopsy passes x 5 DISPOSITION OF SPECIMEN(S): Pathology PLAN: Patient to recovery. Nestor Hernandez MD 08/09/2024 3:08 PM JIGSAWYER(S): Nestor Hernandez MD. CONSENT: Informed consent was obtained prior to the procedure after discussion of the risks, benefits, and alternatives of the procedure, and expected procedure outcomes were discussed with the patient and/orrepresentative. The consent document was placed in chart. DID THIS PROCEDURE REQUIRE A UNIVERSAL PROTOCOL?: Yes. [place] Protocol is required. Preprocedure verification is complete. [...] participate in thispatient's documented in this encounterOS[facility]06-10-2025 Nurse Note* Nursing Notes - Ashok Scanlon RN - 08/09/2024 3:06 PM EDT Procedure completed with IR Attending David of CT guided left devante pelvic mass biopsy. Samples obtained intra-procedure and sent to lab for analysis. Post procedure patient to travel to [id number] for post procedure monitoring. See post procedure orders for nursing care. Needle out: 1506 [facility]06-10-2025 Miscellaneous Notes* Nursing Notes - Ashok Scanlon RN - 08/09/2024 3:06 PM EDT Procedure completed with IR Attending [place] of CT guided left devante pelvic mass biopsy. Samples obtained intra-procedure and sent to lab for analysis. Post procedure patient to travel to [id number] for post procedure monitoring. See post procedure [...] in IR. Please make pt NPO at [facility] * Plan of Care - Nenita Che [...] Care Review Outcome: Progressing Flowsheets (Taken 08/04/2024 0552) Progress: improving Plan of Care Reviewed With: [...] or concerns please call us directly at [phone] for questions M-F [phone]. * Plan of Care - Rubina Valderrama [...] Care Review Outcome: Progressing Flowsheets (Taken 08/03/2024 0333) Progress: improving Plan of Care Reviewed With: [...] nurses station when available. documented in this [facility]OS[facility]06-[facility] Plan of care note* Plan [...] factors/behavior modification for fall/injury prevention Outcome: Progressing [facility]06-09-2025 Plan of care note* Plan of Care - Daiana lAonzo RN - 08/08/2024 2:48 PM EDT Your patient is scheduled for tomorrow, 08/[address] guided biopsy in IR. Please make pt NPO at [facility]06-08-2025 Plan of care note* Plan of Care [...] Diarrhea Goal: Effective Diarrhea Management Outcome: Progressing [facility]06-07-2025 Plan of care note* Plan of Care [...] Diarrhea Goal: Effective Diarrhea Management Outcome: Progressing [facility]06-06-2025 NoteImmunohistochemical stains are in progress; addendum report will follow.[facility] Work Phone: 1(499) 116-169006-06-2025 Plan of care note* Plan of Care - Jason Mclain RN - 08/05/2024 4:33 AM EDT Problem: Adult Inpatient Plan of Care Goal: Plan of Care Review Outcome: Progressing Flowsheets (Taken 08/05/2024 0431) Progress: improving Plan of Care Reviewed With: patient Problem: Hypertension Acute Goal: Blood Pressure Within Desired Range Outcome: Progressing Problem: Diarrhea Goal: Effective Diarrhea Management Outcome: Progressing [facility]06-05-2025 Consult note* Carmen Castellanos MD - 08/04/2024 [...] Castellanos MD I can be reached via [employer] secure message or Pager #[phone]. Please do not hesitate to reach out [...] appropriately Psych: calm Microbiology/Immunology: Personally reviewed in [facility] Radiology/Images (personally reviewed): CT A/P 08/02/24 - [...] 08/01/2024 BILIDIRECT 0.1 08/04/2024 BILIDIRECT 0.15 08/01/2024 [facility] Work Phone: 1(953) 128-417106-05-2025 Consult note* Carmen Castellanos MD - 08/04/2024 [...] Castellanos MD I can be reached via [employer] secure message or Pager #[phone]. Please do not hesitate to reach out [...] were not included. Interventional Radiology Consult Note [facility] record librarian [phone] - [facility] record librarian [id number] PATIENT: Mr. Jc Dunaway Admission Date: 08/01/2024 [...] 08/03/2024 5:50 PM EDT * Perlita Armijo, CHOPPED STRAND OPERATOR-SERVICE RIG OPERATOR - 08/02/2024 1:24 PM EDTAssociated Order(s): IP [...] Relative 67.4 % Lymph Relative 27.4 % [place] Relative 2.6 % Eos Relative 2.6 % Baso Relative 0.0 % Segs & Bands, Absolute 2.24 1.57 - 6.19 K/uL Abs Lymph Manual 0.91 0.83 - 3.57 K/uL Abs [place] Manual 0.09 (L) 0.24 - 0.93 K/uL [...] Negative Negative Ketones Urine Negative Negative Specific Novinger Urine 1.031 1.001 - 1.035 Blood Urine [...] Auto 0.89 0.83 - 3.57 K/uL Abs [place] Auto 0.42 0.24 - 0.93 K/uL Abs [...] Remainder per note. Marcus Zhu MD, PhD Field Service Technician of Clinical Medicine [facility] Gastroenterology, Hepatology, and Nutrition Pager [phone] documented in this encounterKet[facility]06-[facility]25 Plan of care note* Plan of Care [...] Inadequate Goal: Improved Oral Intake Outcome: Progressing [facility]06-05-2025 Plan of care note* Plan of Care - Torie Giles RD - 08/04/2024 10:39 AM EDT Problem: Oral Intake Inadequate Goal: Improved Oral Intake Outcome: Progressing Nutrition Recommendations and Plan of Care: 1. Regular diet 2. Chocolate Ensure Plus BID (350 kcal, 13 gm protein each) 3. RD to follow and monitor nutritional intake/tolerance, weight changes, labs, skin integrity, andGI function. [facility]06-05-2025 Plan of care note* Plan of Care - Jason Mclain RN - 08/04/2024 5:31 AM EDT Problem: Adult Inpatient Plan of Care Goal: Plan of Care Review Outcome: Progressing Flowsheets (Taken 08/04/2024 05) Progress: improving Plan of Care Reviewed With: patient Problem: Pain Acute Goal: Optimal Pain Control and Function Outcome: Progressing Problem: Oral Intake Inadequate Goal: Improved Oral Intake Outcome: Progressing [facility]06-04-2025 Plan of care note* Plan [...] or concerns please call us directly at [phone] for questions [phone]. [facility]06-04-2025 Plan of care note* Plan [...] of Infection Signs and Symptoms Outcome: Progressing [facility]06-04-2025 Consult note* Adriana Myers MD - 08/03/2024 1:23 PM EDT Images from the original note were not included. Interventional Radiology Consult Note [facility] record librarian [id number] - [facility] record librarian [phone] PATIENT: Mr. Jc Dunaway Admission Date: 08/01/2024 [...] Knight MD at 08/03/2024 5:50 PM EDT [facility]06-04-2025 NoteImmunohistochemical stains are in progress; addendum report will follow.[facility] HospitalComment on above:Performed By: #### SURGP ####[facility] (DEFAULT)[address] [place] [address] [id number] Nurse Note* Nursing Notes - Rubina Valderrama RN - 08/03/2024 9:01 AM EDT Tap water enema #1 given to patient at 0850. Patient tolerated with no complaints. Tap water enema #2 given to patient at 0930. Patient tolerated with no complaints. RN observed outcome: clear with no evidence of stool present. [facility] Plan of care note* Plan [...] of Infection Signs and Symptoms Outcome: Progressing [facility]06-03-2025 Hospital Discharge instructions* Discharge Instructions* Leroy Norton PA-C - 08/02/2024 4:52 PM EDT CONTACTS POST TRANSPLANT OFFICE Local: [phone] Out of town: Post Transplant office hours are from 8:00AM - 4:00PM Thursday - Thursday. Service is also available for urgent calls after 4:00PM and on weekends. APPOINTMENTS Our Transplant clinic maintains a very full schedule and our provider schedules are often full. Please call us at [phone] if you anticipate being more than 15 minutes late to your appointment. If you are running late we may need to reschedule your appointment. NEPHROLOGY FOLLOW-UP It is important that you schedule a follow-up appointment with your referring sales and training specialist in the next 2-3 months IMMUNOSUPPRESSION DOSING The dose of your anti-rejection medication may change frequently. The instructions on your medication box/bottle may not be your correct dose. Always take the amount prescribed by your transplant provider LAB WORK Have your labs drawn on Mondays and BEFORE you take your morning tacrolimus dose. Please notify your public information coordinator at our office, , if your [...] - Coughing up blood. documented in this [facility]06-03-2025 Consult note* Perlita Armijo APRN-SERVICE RIG OPERATOR - 08/02/2024 1:24 PM EDTAssociated Order(s): IP [...] Laterality: N/A; Surgeon: Miroslava Joiner MD; Location: [facility] MAIN OR ENDOSCOPY SMALL INTESTINE POUCH DIAGNOSTIC N/A 04/22/2021 Laterality: N/A; Surgeon: Miroslava Joiner MD; Location: [facility] ENDOSCOPY COLOPROCTECTOMY TOTAL W/ LOOP ILEOSTOMY OR CREATION ILEAL RESERVOIR LAPAROSCOPIC N/A 02/12/2021 Laterality: N/A; Surgeon: Miroslava Joiner MD; Location: [facility] MAIN OR SIGMOIDOSCOPY DIAGNOSTIC N/A 02/04/2021 Laterality: N/A; Surgeon: Miroslava Joiner MD; Location: [facility] ENDOSCOPY HIP REPLACEMENT Left 2005 COLONOSCOPY [...] Relative 67.4 % Lymph Relative 27.4 % [place] Relative 2.6 % Eos Relative 2.6 % Baso Relative 0.0 % Segs & Bands, Absolute 2.24 1.57 - 6.19 K/uL Abs Lymph Manual 0.91 0.83 - 3.57 K/uL Abs [place] Manual 0.09 (L) 0.24 - 0.93 K/uL [...] Negative Negative Ketones Urine Negative Negative Specific Novinger Urine 1.031 1.001 - 1.035 Blood Urine [...] Auto 0.89 0.83 - 3.57 K/uL Abs [place] Auto 0.42 0.24 - 0.93 K/uL Abs [...] Remainder per note. Marcus Zhu MD, PhD Field Service Technician of Clinical Medicine [facility] Gastroenterology, Hepatology, and Nutrition Pager [phone] [facility]06-03-2025 Plan of care note* Plan of Care - Parth Sousa RN - 08/02/2024 10:13 AM EDT Problem: Adult Inpatient Plan of Care Goal: Plan of Care Review Outcome: Progressing Goal: Patient-Specific Goal (Individualized) Outcome: Progressing Goal: Absence of Hospital-Acquired Illness or Injury Outcome: Progressing Goal: Optimal Comfort and Wellbeing Outcome: Progressing Goal: Readiness for Transition of Care Outcome: Progressing [facility]06-03-2025 Plan of care note* Plan of Care [...] factors/behavior modification for fall/injury prevention Outcome: Progressing [facility]06-02-2025 Nurse Note* Nursing Notes - Xiomara Khan [...] room closest to nurses station when available. [facility]05-05-2025 History of Present illness Narrative* Shanell Helms RN - 07/04/2024 2:00 PM EDT Images from the original note were not included. PREP SHEET FOR LIVER SURGERY & TRANSPLANT HEPATOLOGY CLINIC Patient Name: Jc Dunaway ([id number]) Ward Maid: Shanell Helms Transplant Telesales Advisor: Babs Marley IMMUNOSUPPRESSION & LAB INFORMATION On [...] standing lab order needed? no Preferred lab: [facility] - [address] - [place] [address] [facility] [id number] COORDINATOR NOTES FOR APPOINTMENT: - 05/25/2024: DDLT with janay-en-y choledochojejunostomy - 06/03/2024: ex lap, small bowel pelvic adhesion and partial dehiscence of CDJ; revision of choledochojejunostomy - Next appointment: 07/13/2024 Cici De La Cruz APRN-SERVICE RIG OPERATOR - Transition to Hepatology: 08/08/2024 TRANSPLANT HEPATOLOGY 5, [facility] INFORMATION ON TRANSPLANTED ORGAN COMMENTS Type of Transplant: Liver Date of Transplant: 05/25/2024 Time elapsed since transplant: 17 day(s) Primary Disease: Primary Sclerosing Cholangitis: Ulcerative Colitis Donor Type: Donation after Circulatory Induction Therapy Used: Steroid Taper Risk Criteria Present: yes [place] Protocol Labs First set due AFTER: 06/22/2024 [...] months Most recent results: DUE: October 2024 WAREHOUSE ORDER PULLER IMAGING & PROCEDURE FOLLOW UP COMMENTS History of HCC: PATH in process at time of appointment If yes -- [place] score: Frequency imaging is due: Abdominal MRI or CT & non-contrast chest CT Last imaging done: Next imaging due: Scheduled? Biliary Stent or drain: no Date of last procedure: Next procedure due: * Valeria Muller [facility] - 07/04/2024 2:00 PM EDT Department of [...] medication changes Name: Valeria Muller RPH Phone: [phone] Date/Time: 07/04/2024 2:28 PM * Meera Moon RN - 07/04/2024 2:00 PM EDT Images from the original note were not included. * Dalia Thomas MD - 07/04/2024 2:00 PM EDT Images from the original note were not included. Post-Tx Evaluation Liver 07/04/2024 Jc P Emelyn [id number] Chief Complaint: Chief Complaint Patient presents with [...] Laterality: N/A; Surgeon: Miroslava Joiner MD; Location: [facility] ENDOSCOPY COLOPROCTECTOMY TOTAL W/ LOOP ILEOSTOMY OR CREATION ILEAL RESERVOIR LAPAROSCOPIC N/A 02/12/2021 Laterality: N/A; Surgeon: Miroslava Joiner MD; Location: [facility] MAIN OR SIGMOIDOSCOPY DIAGNOSTIC N/A 02/04/2021 Laterality: N/A; Surgeon: Miroslava Joiner MD; Location: [facility] ENDOSCOPY HIP REPLACEMENT Left 2005 COLONOSCOPY [...] every 12 hours. 120 capsule 11 Nystatin 506347 UNIT/ML oral suspension Swish and swallow 1 [...] [facility]ANT [facility]PAT[facility]Y CLINIC Patient Name: Jc Dunaway ([id number]) Ward Maid: Shanell Helms Transplant Telesales Advisor: Babs Marley IMMUNOSUPPRESSION & LAB INFORMATION On [...] standing lab order needed? no Preferred lab: [facility] - [address] - [place] [address] [facility] [id number] COORDINATOR NOTES FOR APPOINTMENT: - 05/25/2024: DDLT with janay-en-y choledochojejunostomy - 06/03/2024: ex lap, small bowel pelvic adhesion and partial dehiscence of CDJ; revision of choledochojejunostomy - Next appointment: 07/13/2024 Cici De La Cruz APRN-SERVICE RIG OPERATOR - Transition to Hepatology: 08/08/2024 TRANSPLANT HEPATOLOGY 5, [facility] INFORMATION ON TRANSPLANTED ORGAN COMMENTS Type of Transplant: Liver Date of Transplant: 05/25/2024 Time elapsed since transplant: 17 day(s) Primary Disease: Primary Sclerosing Cholangitis: Ulcerative Colitis Donor Type: Donation after Circulatory Induction Therapy Used: Steroid Taper Risk Criteria Present: yes [place] Protocol Labs First set due AFTER: 06/22/2024 [...] months Most recent results: DUE: October 2024 SENIOR LIVING IMAGING & PROCEDURE FOLLOW UP COMMENTS History of HCC: PATH in process at time of appointment If yes -- [place] score: Frequency imaging is due: Abdominal MRI [...] questions were answered. [facility] in this [facility]OS[facility] Instructions* Patient Instructions* Meera Moon RN - 07/04/2024 2:00 PM EDT - [place] removed today in clinic. - Appointment 07/13/2024 with Cici De La Cruz APRN-SERVICE RIG OPERATOR will be via [employer] video visit. - Continue checking labs twice weekly. - No medication changes today. documented in this encounterOS[facility]04-21-2025 History of Present illness Narrative* Shanell Helms RN - 06/20/2024 2:30 PM EDT Images from the original note were not included. PREP SHEET FOR LIVER SURGERY & TRANSPLANT HEPATOLOGY CLINIC Patient Name: Jc Dunaway ([id number]) Ward Maid: Shanell Helms Transplant Telesales Advisor: Babs Marley IMMUNOSUPPRESSION & LAB INFORMATION On [...] standing lab order needed? no Preferred lab: [facility] - [address] - [place] [id number] [facility] [address] [facility] [id number] COORDINATOR NOTES FOR APPOINTMENT: - 05/25/2024: DDLT with janay-en-y choledochojejunostomy - 06/03/2024: ex lap, small bowel pelvic adhesion and partial dehiscence of CDJ; revision of choledochojejunostomy - Should have completed antibiotics yesterday. Will need to schedule PICC removal. - Next appointment: 07/13/2024 Cici De La Cruz APRN-SERVICE RIG OPERATOR - Transition to Hepatology: 08/08/2024 TRANSPLANT HEPATOLOGY [address] [place] [address] INFORMATION ON TRANSPLANTED ORGAN COMMENTS Type of Transplant: Liver Date of Transplant: 05/25/2024 Time elapsed since transplant: 17 day(s) Primary Disease: Primary Sclerosing Cholangitis: Ulcerative Colitis Donor Type: Donation after Circulatory Induction Therapy Used: Steroid Taper Risk Criteria Present: yes [place] Protocol Labs First set due AFTER: 06/22/2024 [...] months Most recent results: DUE: October 2024 WAREHOUSE ORDER PULLER IMAGING & PROCEDURE FOLLOW UP COMMENTS History of HCC: PATH in process at time of appointment If yes -- [place] score: Frequency imaging is due: Abdominal MRI or CT & non-contrast chest CT Last imaging done: Next imaging due: Scheduled? Biliary Stent or drain: no Date of last procedure: Next procedure due: * Valeria Muller [facility] - 06/20/2024 2:30 PM EDT Department of [...] capsules by mouth every 12 hours. Nystatin 348363 UNIT/ML oral suspension Swish and swallow 1 [...] nystatin 06/25/24 Name: Valeria Muller RPH Phone: [phone] Date/Time: 06/20/2024 3:19 PM * Dalia Thomas MD - 06/20/2024 2:30 PM EDT Images from the original note were not included. Post-Tx Evaluation Liver 06/20/2024 Jc Dunaway [id number] Chief Complaint: Chief Complaint Patient presents with [...] every 12 hours. 120 capsule 11 Nystatin 640055 UNIT/ML oral suspension Swish and swallow 1 [...] TRANSPLANT HEPATOLOGY CLINIC Patient Name: Jc Dunaway ([id number]) Ward Maid: Shanell eHlms Transplant Telesales Advisor: Babs Marley IMMUNOSUPPRESSION & LAB INFORMATION On [...] standing lab order needed? no Preferred lab: [facility] - [address] - [place] [address] [facility] [address] COORDINATOR NOTES FOR APPOINTMENT: - 05/25/2024: DDLT with janay-en-y choledochojejunostomy - 06/03/2024: ex lap, small bowel pelvic adhesion and partial dehiscence of CDJ; revision of choledochojejunostomy - Should have completed antibiotics yesterday. Will need to schedule PICC removal. - Next appointment: 07/13/2024 Cici De La Cruz APRN-SERVICE RIG OPERATOR - Transition to Hepatology: 08/08/2024 TRANSPLANT HEPATOLOGY , [facility] INFORMATION ON TRANSPLANTED ORGAN COMMENTS Type of Transplant: Liver Date of Transplant: 05/25/2024 Time elapsed since transplant: 17 day(s) Primary Disease: Primary Sclerosing Cholangitis: Ulcerative Colitis Donor Type: Donation after Circulatory Induction Therapy Used: Steroid Taper Risk Criteria Present: yes [place] Protocol Labs First set due AFTER: 06/22/2024 [...] months Most recent results: DUE: October 2024 WAREHOUSE ORDER PULLER IMAGING & PROCEDURE FOLLOW UP COMMENTS History of HCC: PATH in process at time of appointment If yes -- [place] score: Frequency imaging is due: Abdominal MRI [...] questions were answered. documented in this encounterOS[facility]04-21-2025 Instructions* Patient Instructions* Shanell Helms RN - 06/20/2024 2:30 PM EDT - Stop Nystatin. - Continue with twice weekly labs. - Next appointment: 07/04/2024 Dalia Thomas MD for staple removal. - Return to clinic on 07/13/2024 with Cici De La Cruz APRN-SERVICE RIG OPERATOR. documented in this encounterOSU [facility]04-16-2025 History of Present illness Narrative* Eden [...] inform them of this plan. We contacted [facility] to notify them of the planned antibiotic stop date and also noted PICC removal plan for 06/20/24. Carmen Castellanos MD Field Service Technician-Clinical Division of Infectious Diseases Pager #[phone] documented in this encounterOSU [facility]04-14-2025 History of Present illness Narrative* Shanell Helms RN - 06/13/2024 1:15 PM EDT Images from the original note were not included. PREP SHEET FOR LIVER SURGERY & TRANSPLANT HEPATOLOGY CLINIC Patient Name: Jc Dunaway ([id number]) Ward Maid: Shanell Helms Transplant Telesales Advisor: Babs Marley IMMUNOSUPPRESSION & LAB INFORMATION On [...] standing lab order needed? no Preferred lab: [facility] - [address] - [place] [address] [facility] [address] COORDINATOR NOTES FOR APPOINTMENT: - First outpatient appointment - 05/25/2024: DDLT with janay-en-y choledochojejunostomy - 06/03/2024: ex lap, small bowel pelvic adhesion and partial dehiscence of CDJ; revision of choledochojejunostomy - Next appointment: needs next surgery appointment scheduled. - Transition to Hepatology: 08/08/2024 TRANSPLANT HEPATOLOGY 5, [facility] INFORMATION ON TRANSPLANTED ORGAN COMMENTS Type of Transplant: Liver Date of Transplant: 05/25/2024 Time elapsed since transplant: 17 day(s) Primary Disease: Primary Sclerosing Cholangitis: Ulcerative Colitis Donor Type: Donation after Circulatory Induction Therapy Used: Steroid Taper Risk Criteria Present: yes [place] Protocol Labs First set due AFTER: 06/22/2024 [...] months Most recent results: DUE: October 2024 WAREHOUSE ORDER PULLER IMAGING & PROCEDURE FOLLOW UP COMMENTS History of HCC: PATH in process at time of appointment If yes -- [place] score: Frequency imaging is due: Abdominal MRI or CT & non-contrast chest CT Last imaging done: Next imaging due: Scheduled? Biliary Stent or drain: no Date of last procedure: Next procedure due: * Deshawn Downey [facility] - 06/13/2024 1:15 PM EDT Department of [...] capsules by mouth every 12 hours. Nystatin 319577 UNIT/ML oral suspension Swish and swallow 1 [...] low calcium Name: Deshawn Downey RPH Phone: [phone] Date/Time: 06/13/2024 7:38 AM * Dalia Thomas MD - 06/13/2024 1:15 PM EDT Images from the original note were not included. Post-Tx Evaluation Liver 06/13/2024 Jc Jeimy VallesEmelyn [id number] Chief Complaint: No chief complaint on file. [...] every 12 hours. 120 capsule 11 Nystatin 885382 UNIT/ML oral suspension Swish and swallow 1 [...] TRANSPLANT HEPATOLOGY CLINIC Patient Name: Jc Dunaway ([id number]) Ward Maid: Shanell Helms Transplant Telesales Advisor: Babs Marley IMMUNOSUPPRESSION & LAB INFORMATION On [...] standing lab order needed? no Preferred lab: [facility] - [address] - [place] [address] [facility] [facility] [address] COORDINATOR NOTES FOR APPOINTMENT: - First outpatient appointment - 05/25/2024: DDLT with janay-en-y choledochojejunostomy - 06/03/2024: ex lap, small bowel pelvic adhesion and partial dehiscence of CDJ; revision of choledochojejunostomy - Next appointment: needs next surgery appointment scheduled. - Transition to Hepatology: 08/08/2024 TRANSPLANT HEPATOLOGY 5, [facility] INFORMATION ON TRANSPLANTED ORGAN COMMENTS Type of Transplant: Liver Date of Transplant: 05/25/2024 Time elapsed since transplant: 17 day(s) Primary Disease: Primary Sclerosing Cholangitis: Ulcerative Colitis Donor Type: Donation after Circulatory Induction Therapy Used: Steroid Taper Risk Criteria Present: yes [place] Protocol Labs First set due AFTER: 06/22/2024 [...] months Most recent results: DUE: October 2024 SENIOR LIVING IMAGING & PROCEDURE FOLLOW UP COMMENTS History of HCC: PATH in process at time of appointment If yes -- [place] score: Frequency imaging is due: Abdominal MRI [...] questions were answered. documented in this encounterU [facility]04-14-2025 Instructions* Patient Instructions* Jess Anderson RN - 06/13/2024 1:15 PM EDT Start calcium supplement 600 mg daily, can machine operator picker over the counter. Follow up with Dr. Thomas in 1 week. documented in this [facility]OS[facility]04-11-2025 Telephone encounter Note* Telephone Encounter - Taylor Downey - 06/10/2024 12:32 PM EDT Medication Access Team [facility] Prior Authorization Per the patient's insurance provider, [facility] [employer], the prior authorization for Entecavir0.5mg #30/30 (on-label) was approved. Authorization number: [id number] Authorization start date: 05/10/24 Authorization end date: 06/10/25 $3/mo co-pay Non-Oncology Specialty Prescriptions: 1, 15-20 min Taylor Downey [phone] [facility]04-[facility]-20[facility] Miscellaneous Notes* Telephone Encounter - Taylor Downey - 06/10/2024 12:32 PM EDT Medication Access Team [facility] Prior Authorization Per the patient's insurance provider, [facility], the prior authorization for Entecavir0.5mg #30/30 (on-label) was approved. Authorization number: [id number] Authorization start date: 05/10/24 Authorization end date: 06/10/25 $3/mo co-pay Non-Oncology Specialty Prescriptions: 1, 15-20 min Taylor Downey [phone] * Telephone Encounter - Taylor Downey - 06/10/2024 11:27 AM EDT Prior authorization for Entecavir submitted to [facility] marked urgent. 24-72 hrs for urgent review. Update sent to team. documented in this encounterOSCommunity [facility]04-11-2025 Telephone encounter Note* Telephone Encounter - Taylor Downey - 06/10/2024 11:27 AM EDT Prior authorization for Entecavir submitted to [facility] marked urgent. 24-72 hrs for urgent review. Update sent to team. [facility]03-[facility] History and physical note* Jess Gamez MD - 05/13/2024 1:30 PM EDT ENDOSCOPIC PREPROCEDURE HISTORY AND PHYSICAL HISTORY OF PRESENT ILLNESS: Jc Dunaway is a 58 y.o. male [facility] [facility]. The indication for endoscopic evaluation includes: [...] Laterality: N/A; Surgeon: Miroslava Joiner MD; Location: [facility] MAIN OR SIGMOIDOSCOPY DIAGNOSTIC N/A 02/04/2021 Laterality: N/A; Surgeon: Miroslava Joiner MD; Location: [facility] ENDOSCOPY HIP REPLACEMENT Left 2005 COLONOSCOPY [...] SIGMOIDOSCOPY using Moderate Sedation. Jess Gamez MD [facility] Work Phone: 1(865) 631-895803-14-2025 History and physical note* Jess Gamez MD [...] Laterality: N/A; Surgeon: Miroslava Joiner MD; Location: [facility] ENDOSCOPY COLOPROCTECTOMY TOTAL W/ LOOP ILEOSTOMY OR CREATION ILEAL RESERVOIR LAPAROSCOPIC N/A 02/12/2021 Laterality: N/A; Surgeon: Miroslava Joiner MD; Location: [facility] MAIN OR SIGMOIDOSCOPY DIAGNOSTIC N/A 02/04/2021 Laterality: N/A; Surgeon: Miroslava Joiner MD; Location: [facility] ENDOSCOPY HIP REPLACEMENT Left 2005 COLONOSCOPY [...] Sedation. Jess Gamez MD 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 Work Phone: [phone] Nurse Note* Nursing Notes - Juana Luther [...] Ambulates prior to DC without difficulty. [facility]02-13-2025 Miscellaneous Notes* Nursing Notes - Juana [...] Brief Cardiac Catheterization Procedure Note Jc Dunaway ([id number]) Pre Procedural Diagnosis PSC (primary sclerosing cholangitis) [...] * CHAN Soto - Fellow Procedural Staff Well Shooter: Concepción Diggs RN; Kathryn Mc RN Documenter: [...] 03/29/2024 1:35 PM EST PREPARING FOR YOUR DIRECTOR RADIO NEWS PROCEDURE Your catheterization is scheduled on APRIL 14, 2024 at: [facility] at the [facility] located at [address] [place] [address]. You are to arrive at [facility] on the 1st floor at 11:00 AM You may use manager pharmacy parking ($10) or park in the [facility] Garage just past the Rowe ($3). There is a walkway from the 2nd floor of the garage into the [facility]. You are to have nothing to [...] please call NOW to notify the lab ([phone]). You may receive sedation during your procedure [...] REGARDING THE PROCEDURE CALL US AT : [phone] THANK YOU, BLADE GLORIA Beef Cattle Specialist Scheduling The above instructions were given to patient verbally over the phone AND VIA MY CHART / MAIL. CLICK THE LINK BELOW FOR A VIDEO EXPLANATION OF THE CARDIAC CATH PROCEDURE AND OUT PATIENT PROCESS. [email or web address] documented in this encounterOSU [facility]02-[facility] Surgery Postoperative evaluation and management note* Brief Op Note - CHAN Soto - 04/14/2024 1:09 PM EST Preliminary Report - Brief Cardiac Catheterization Procedure Note Jc Dunaway ([id number]) Pre Procedural Diagnosis PSC (primary sclerosing cholangitis) [...] * CHAN Soto - Fellow Procedural Staff Well Shooter: Concepción Diggs RN; Kathryn Mc RN Documenter: Meagan Valenzuela RN Full report to follow CHAN Soto April 14, 2024 1:09 PM Cosigned by Parul Garcia MD at 04/14/2024 1:13 PM EST [facility]02-13-2025 History and physical note* CHAN Soto [...] Garcia MD at 04/14/2024 12:44 PM EST [facility] Work Phone: [phone]) 273-296502-13-2025 History and physical note* CHAN Soto - [...] Del Rio MD Cardiovascular Medicine Fellow [facility] Cosigned by Parul Garcia MD at 04/14/2024 12:26 PM EST documented in this encounterOSU [facility]02-13-[facility] Nurse Note* Nursing Notes - Mason [...] to pt. Tele monitor shows SR. [facility]02-13-2025 History and physical note* Stewart Del [...] Del Rio MD Cardiovascular Medicine Fellow [facility] Cosigned by Parul Garcia MD at 04/14/2024 12:26 PM EST [facility] Work Phone: 1(785) 961-425902-10-2025 Evaluation note* Diagnosis Onset Date Resolution Status Admit Date Acquired dilation of common bile duct acute April 11, 2 025 2:40pm Diarrhea acute April 11, 2024 2:40pm Weight loss acute April 2:40pm Elevated LFTs chronic April 112024 2:40pm Transaminitis chronic April 112024 2:40pm Ulcerative colitis chronic Februa 2024 2:40pm Colon cancer deleted April 2:40pm Hemorrhoids acute May 03 8:44am [facility] Work Phone: [phone]) 142-812001-28-2025 Nurse Note* Nursing Notes - Blade Calix RN - 03/29/2024 1:35 PM EST PREPARING FOR YOUR DIRECTOR RADIO NEWS PROCEDURE Your catheterization is scheduled on APRIL 14, 2024 at: [facility] at the [facility] located at [address] [place] [address]. You are to arrive at [facility] on the 1st floor at 11:00 AM You may use manager pharmacy parking ($10) or park in the [facility]age just past the [address] ($3). There is a walkway from the 2nd floor of the [facility] You are to have nothing to eat [...] please call NOW to notify the lab ([phone]). You may receive sedation during your procedure [...] REGARDING THE PROCEDURE CALL US AT : [phone] THANK YOU, BLADE GLORIA Beef Cattle Specialist Scheduling The above instructions were given to patient verbally over the phone AND VIA MY CHART / MAIL. CLICK THE LINK BELOW FOR A VIDEO EXPLANATION OF THE CARDIAC CATH PROCEDURE AND OUT PATIENT PROCESS. [email or web address]/[email or web address]&t=[email or web address] [facility]01-28-2025 History of Present illness Narrative* Katia Minda DO Nikita - 03/29/2024 10:30 AM EST HISTORY It was my privilege to see Mr. Jc Dunaway at [facility] [place] on 03/29/2024 for his pre-liver transplant eval [...] erythema: Skin: No jaundice or rash Neuro: application architect grossly intact. Strength grossly equal in muscle [...] contact me. Respectfully yours, Katia Shelton DO, [facility] Department Of Mathematics Chair of Clinical Internal Medicine documented in this encounterKettering [facility]01-23-2025 History of Present illness Narrative* Kamilah Ruiz [...] name, Date and Time) documented in this encounterKettering Health [facility]01-23-2025 History of Present illness Narrative* Loy Montgomery MA - 03/24/2024 9:00 AM EST 12 Lead EKG performed per provider's order, per policy, and given to [facility] for interpretation. Medical building construction contractor offered to patient prior to sensitive procedure and patient declined documented in this encounterU [facility] History of Present illness Narrative* Jennifer Martinez RDCS - 03/24/2024 8:00 AM EST Jc Dunaway was offered and declined a Medical Appraisal Technician for this exam/procedure/test 03/24/2024. * Jess Carias [...] the IV without incident. documented in this encounterOSCommunity [facility] Center01-23-2025 Miscellaneous Notes* Result Encounter Note [...] consult Thanks C documented in this encounterOSU [facility]01-23-2025 Progress note* Result Encounter Note - Babs Marley MD - 03/24/2024 8:00 AM EST Hi Can we e-consult cards for the mild MR from the MV Prolapse. For clearance Thanks C [facility] Work Phone: 1([phone]) 636-511601-23-2025 Progress note* Result Encounter Note - Babs Marley MD - 03/24/2024 8:00 AM EST Oh yeah , I see it Ok lets send him for an official cards consult Thanks C [facility]01-14-2025 History of Present illness Narrative* YRN Aguilar - 03/15/2024 10:00 AM EST Transplant Recipient Psychosocial Evaluation Demographics: Patient is a 58 y.o., , , male, who presented for a liver transplant evaluation. Patient was AOx4. Transplant Sailor role/function was explained and reviewed. The patient was informed that the results of this assessment will be shared with the referring provider and the transplant team. The patient verbalized understanding of this information. The [facility] psychosocial assessment consent form has been explained to patient and has been signed. Patient is completing this evaluation with spouse (Flaca) in the Outpatient setting. Sailor educated patient on the benefits of completing/filing advanced directives and resources were offered and questions regarding same were answered by this social services counselor. Patient identifies with NO PREFERENCE christianity. Patient confirms being a [place] Citizen. Patient's primary language is Lithuanian. Patient denies potential donors. 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 Cuate drives, Leroy does not currently. 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 [address] [place] [address] [email or web address] The above assessment was conducted by means of corroborating information from patient's chart review, support person(s) report, multiple evidence based clinical tools and a modified version of the Timur Integrated Psychosocial Assessment for Transplant (SIPAT) and the SIPAT-General TXP Long FormNaveed et al, 2008; Naveed et al, Psychosomatics 2012. documented in this encounterKettering Health Behavioral [facility] Center01-14-2025 History of Present illness Narrative* Daiana Allne RN - 03/15/2024 9:30 AM EST Patient Jc Dunaway ([id number]), accompanied by spouse (Flaca), was seen on [...] that we will [facility] [...] biliary ductal system. : 02/25/2024 Findings: The guard entrance registrar film was normal. The esophagus was successfully [...] the right and left intrahepatics in a zcwlm-bo-a-string pattern. The bile duct orifice was successfully [...] in the right and left intrahepatics in eblji-mw-b-string pattern. The strictures were secondary to primary [...] new visit Date of service: 03/15/2024 -Referring chief embalmer for today's consult: Babs Marley -Primary Care [...] processes progressing rapidly Unknown documented in this encounterKettering Health Behavioral [facility] Center01-14-2025 Instructions* Patient Instructions* Daiana Allen RN - 03/15/2024 9:30 AM EST You have been seen in the pre-transplant evaluation clinic by Dr. Boland and Daiana Allen. Daiana Allen is your pre-public information coordinator she can be reached at [phone] at any time for questions during the pre-transplant process. Your medical/surgical evaluation is complete pending 1. EKG, Echocardiogram, stress echocardiogram 03-24-2024 2. Chest X-ray-- walk in 2nd floor [facility]. 3. Pulmonary function test 03-24-2024 Please call the liver transplant financial assistant Gladys, at [phone] if you do not get a call from her within a week of this appointment. Please call Mansoor at [phone] if you need any of your transplant [...] call them withsymptom or prescription concerns at [phone]. documented in this encounterOSU [facility]12-26-2024 Nurse Note* Nursing Notes - Peggy Rico RN - 02/25/2024 11:[address] Farrar that patient was ready for discharge and requested a phone call for the test results. Patient states that they live in [place] and would like to leave as soon as possible. Dr Farrar stated he would come see the patient [place]. [facility]12-26-[facility]24 Miscellaneous Notes* Nursing Notes - Peggy Rico RN - 02/25/2024 11:[address] Farrar that patient was ready for discharge and requested a phone call for the test results. Patient states that they live in [place] and would like to leave as soon as possible. Dr Farrar stated he would come see the patient [place]. * Nursing Notes - Genna Muñoz RN - 02/25/2024 10:29 AM EST Fluoro Time = 41.3/ Report called to PACU plus documented in this encounterOSCommunity Regional Medical Center12-26-2024 Nurse Note* Nursing Notes - Genna Muñoz RN - 02/25/2024 10:29 AM EST Fluoro Time = 41.3/ Report called to PACU plus [facility]12-26-2024 History and physical note* Glenn Ignacio MD - 02/25/2024 8:30 AM EST ENDOSCOPIC PREPROCEDURE HISTORY AND PHYSICAL HISTORY OF PRESENT ILLNESS: Jc Dunaway is a 58 y.o. male seen in the pre-procedure area at [facility] ENDOSCOPY. The indication for endoscopic evaluation includes: PSC (primary sclerosing cholangitis) PAST MEDICAL HISTORY: Past Medical History: Diagnosis Date Colon cancer 10/2020 Ulcerative colitis diagnosed in the 80s- no surgery SURGICAL HISTORY: Past Surgical History: Procedure Laterality Date EXAM UNDER ANESTHESIA ANORECTAL N/A 02/28/2022 Laterality: N/A; Surgeon: Miroslava Joiner MD; Location[facility] PERIOP ENDOSCOPY SMALL INTESTINE POUCH [...] ERCP using General Anesthesia. Glenn Ignacio MD [facility]12-26-2024 History and physical note* Glenn Ignacio MD - 02/25/2024 8:30 AM EST ENDOSCOPIC PREPROCEDURE HISTORY AND PHYSICAL HISTORY OF PRESENT ILLNESS: Jc Dunaway is a 58 y.o. male seen in the pre-procedure area at [facility] ENDOSCOPY. The indication for endoscopic evaluation includes: [...] Laterality: N/A; Surgeon: Miroslava Joiner MD; Location: [facility] MAIN OR ENDOSCOPY SMALL INTESTINE POUCH DIAGNOSTIC N/A 04/22/2021 Laterality: N/A; Surgeon: Miroslava Joiner MD; Location: [facility] ENDOSCOPY COLOPROCTECTOMY TOTAL W/ LOOP ILEOSTOMY OR CREATION ILEAL RESERVOIR LAPAROSCOPIC N/A 02/12/2021 Laterality: N/A; Surgeon: Miroslava Joiner MD; Location: [facility] MAIN OR SIGMOIDOSCOPY DIAGNOSTIC N/A 02/04/2021 Laterality: N/A; Surgeon: Miroslava Joiner MD; Location: [facility] ENDOSCOPY HIP REPLACEMENT Left 2005 COLONOSCOPY [...] Anesthesia. Glenn Ignacio MD documented in this [facility]12-19-2024 Evaluation note * Diagnosis Onset Date [...] April 2:40pm Hemorrhoids acute May 03 8:44am [facility] Work Phone: 1(903) 419-453810-23-2024 History of Present illness Narrative* Babs Marley MD - 12/23/2023 11:00 AM EDT Images from the original note were not included. Division of Gastroenterology, Hepatology and Nutrition HEP OP NOTE: HEPATOLOGY OUTPATIENT NOTE PRIMARY CARE PHYSICIAN: Olive Valera REFERRING PROVIDER: Julio Hanson, [address] [address] HEPATOLOGY/GI DIAGNOSIS: PSC per pt report [facility] [...] Laterality: N/A; Surgeon: Miroslava Joiner MD; Location: [facility] ENDOSCOPY COLOPROCTECTOMY TOTAL W/ LOOP ILEOSTOMY OR CREATION ILEAL RESERVOIR LAPAROSCOPIC N/A 02/12/2021 Laterality: N/A; Surgeon: Miroslava Joiner MD; Location: [facility] MAIN OR SIGMOIDOSCOPY DIAGNOSTIC N/A 02/04/2021 Laterality: N/A; Surgeon: Miroslava Joiner MD; Location: [facility] ENDOSCOPY HIP REPLACEMENT Left 2005 COLONOSCOPY [...] diminutive caliber of the duct and low axtqnc-hk-gjwjw, though occult pancreatic mass is not excluded. Recommend attention to pancreatic head on multiphase liver MRI recommended above. Consider ERCP. I personally viewed and interpreted these imaging studies listed above ENDOSCOPY REPORTS/PATHOLOGY REPORTS: ERCP 12/2023: Findings: The guard entrance registrar film was normal. The esophagus was successfully [...] to clinic in 6 months Babs GILES Field Service Technician in Clinical Medicine Department of Internal medicine Pager:[phone] * Isrrael Bernal - 12/23/2023 11:00 AM EDT This AUTOMOBILE SERVICE ADVISOR verified patient's name and Flaca is present. documented in this [facility]10-23-2024 Instructions* Patient Instructions* Babs Marley MD - 12/23/2023 11:00 AM EDT - labs today documented in this [facility]10-23-2024 Miscellaneous Notes* Addendum Note - Babs Marley MD - 12/23/2023 11:00 AM EDTAddended by: BABS MARLEY on: 12/23/2023 04:37 PM Modules accepted: Orders documented in this [facility]10-23-2024 Note* Addendum Note - Babs Marley MD - 12/23/2023 11:00 AM EDTAddended by: BABS MARLEY on: 12/23/2023 04:37 PM Modules accepted: Orders [facility]12-11-2023 History of Present illness Narrative* Salty Mead MD - 02/09/2023 8:15 AM EST ENDOSCOPIC PREPROCEDURE HISTORY AND PHYSICAL HISTORY OF PRESENT ILLNESS: Jc Dunaway is a 57 y.o. male seen in the pre-procedure area at [facility]. The indication for endoscopic evaluation includes: [...] Care. Miroslava Joiner MD documented in this encounterKettering Health Behavioral Medical Center12-11-2023 Nurse Note* Hemal Kelsey RN - 02/09/2023 8:15 AM EST PT Given discharge paperwork and reviewed per MD and nurse. Physiological Chemist at bedside. Diet and restrictions reviewed as well. Venous access removed no complications noted. Ok to d/c Anesthesia and procedural . documented in this encounterOSU [facility]ly[facility]12-11-2023 Nurse Surgical operation note* Hemal Kelsey RN - 02/09/2023 8:15 AM EST PT Given discharge paperwork and reviewed per MD and nurse. Physiological Chemist at bedside. Diet and restrictions reviewed as well. Venous access removed no complications noted. Ok to d/c Anesthesia and procedural MD. [facility]12-30-2022 Miscellaneous Notes* Brief Op Note - Miroslava Joiner MD - 02/28/2022 8:45 AM EST Jc Dunaway ([id number]) PRE OPERATIVE DIAGNOSIS Ulcerative pancolitis with other [...] - Primary ANESTHESIOLOGIST Anesthesiologist: Piyush David MD AUTOMATION AND CONTROLS SUPERVISOR: Darline Valle APRN-AUTOMATION AND CONTROLS SUPERVISOR SURGICAL STAFF Well Shooter: Maris Lewis RN; Meera Wells RN Scrub [...] via spontaneous airway Anesthesiologist: Piyush David MD AUTOMATION AND CONTROLS SUPERVISOR: MT Mitchell EBL: Minimal Complication: None Counts: [...] the recovery room. documented in this encounterOSU [facility]lyria [facility]12-30-2022 Note* Brief Op Note - Miroslava Joiner MD - 02/28/2022 8:45 AM EST Jc Dunaway ([id number]) PRE OPERATIVE DIAGNOSIS Ulcerative pancolitis with other [...] - Primary ANESTHESIOLOGIST Anesthesiologist: Piyush David MD AUTOMATION AND CONTROLS SUPERVISOR: Darline Valle APRN-AUTOMATION AND CONTROLS SUPERVISOR SURGICAL STAFF Well Shooter: Maris Lewis RN; Meera Wells RN Scrub [...] MD February 28, 2022 1:47 PM [facility]12-30-2022 Nurse Surgical operation note* Alia Alamo RN - 02/28/2022 8:20 AM EST 0825 Discharge instructions reviewed with patient and , all questions answered, AVS provided 0831 Dr. David, Anesthesia MD at bedside for post-op eval 0845 Patient discharged to home with , ambulated to car with steady gait. [facility]12-30-2022 Nurse Note* Alia Alamo RN - [...] PACU, O2 in place, report given to MESSENGER COPY. 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 I personally performed the procedure without resident assistance. Service: Colorectal Surgery Anesthesia: General via spontaneous airway Anesthesiologist: Piyush David MD AUTOMATION AND CONTROLS SUPERVISOR: MT Mitchell EBL: Minimal Complication: None Counts: [...] dressings and taken to the recovery room. [facility]12-30-[facility] Hospital Discharge instructions* Discharge Instructions* Miroslava Joiner [...] at the pharmacy documented in this encounterOSU [facility]lyria [facility]12-30-2022 Nurse Surgical operation note* Maris Lewis RN - 02/28/2022 7:52 AM EST Patient transported to PACU, O2 in place, report given to MESSENGER COPY. [facility]12-30-2022 History and physical note* Miroslava Joiner [...] Laterality: N/A; Surgeon: Miroslava Joiner MD; Location: [facility] ENDOSCOPY COLOPROCTECTOMY TOTAL W/ LOOP ILEOSTOMY OR CREATION ILEAL RESERVOIR LAPAROSCOPIC N/A 02/12/2021 Laterality: N/A; Surgeon: Miroslava Joiner MD; Location: [facility] MAIN OR SIGMOIDOSCOPY DIAGNOSTIC N/A 02/04/2021 Laterality: N/A; Surgeon: Miroslava Joiner MD; Location: [facility] ENDOSCOPY HIP REPLACEMENT Left 2005 COLONOSCOPY [...] biopsy of anal lesion in OR today [facility]12-30-2022 History and physical note* Miroslava Joiner MD - 02/28/2022 7:01 AM EST HPI: 56 y.o. yo male here for pouchoscopy and excision of anal lesion New symptoms: sore sometimes Past Medical History: Diagnosis Date Colon cancer 10/2020 Ulcerative colitis diagnosed in the 80s- no surgery Past Surgical History: Procedure Laterality Date LOOP ILEOSTOMY CLOSURE N/A 06/04/2021 Laterality: N/A; Surgeon: Miroslava Joiner MD; Location: [facility] MAIN OR ENDOSCOPY SMALL INTESTINE POUCH DIAGNOSTIC N/A 04/22/2021 Laterality: N/A; Surgeon: Miroslava Joiner MD; Location: [facility] ENDOSCOPY COLOPROCTECTOMY TOTAL W/ LOOP ILEOSTOMY OR CREATION ILEAL RESERVOIR LAPAROSCOPIC N/A 02/12/2021 Laterality: N/A; Surgeon: Miroslava Joiner MD; Location: [facility] MAIN OR SIGMOIDOSCOPY DIAGNOSTIC N/A 02/04/2021 Laterality: N/A; Surgeon: Miroslava Joiner MD; Location: [facility] ENDOSCOPY HIP REPLACEMENT Left 2005 COLONOSCOPY [...] lesion in OR today documented in this encounterKettering Health Behavioral Medical Center12-09-2022 History of Present illness Narrative* Nirali Maya RN - 02/07/2022 8:[address] Joiner contacted to see if bowel prep needed for pouchoscopy. Per Dr Joiner no special bowel prep needed for pouchoscopy. documented in this encounterKettering Health [facility] Center10-27-2022 History of Present illness Narrative* Miroslava Joiner [...] I have seen him in the past Appraisal Technician: Chhaya Melendrez RN On the right anterior [...] PM EDT Chhaya Melendrez RN acted as building construction contractor for this exam. documented in this encounterU [facility]lyria [facility]10-27-2022 Instructions* Patient Instructions* Valentin Fine - 12/26/2021 3:15 PM EDT Prep for procedure : Clear liquids the evening before surgery and nothing by mouth after midnight. BEFORE SURGERY: [] PRE-PROCEDURE PREPARATION (COMPAC) Date: 02/07/2022 Call Time: 0830AM Patients who are scheduled for a surgical or other procedure at [facility] may be required to complete a [...] to surgery, please contact our office at [phone] Please note that this schedule is subject [...] be given 1 day prior to surgery [facility] [place] [address] Office #: [phone] Fax #: [phone] CURRENT COVID VISITOR POLICY: These visitor policy [...] service home, an adult, other than the trailer tank truck driver, needs to ride with you for your safety. This person will also be responsible for communicatingpost-operative instructions to you. If you would like to sign up for text messages for [facility] appointment reminders text [facility] TO [phone].You will receive a response within a few [...] the hospital. Do not wear makeup, nail mauritanian or hair pins to the hospital. Please [...] a living will or durable power of attorney recruiter, please bring a copy of the documents [...] your doctor s office. From the North ([place]) Take any major highway to [address] Take exit [address] to merge onto [address] toward Take exit 30 to merge onto [facility] toward [place] Use the right queenie to take exit [address] Turn right onto [address] Use the left queenie to turn left at E [facility] Turn left From the South ([place]) Take any major highway to [address] Use the middle 2 lanes to take the exit toward [place] Continue onto [address] Take exit 1D to merge onto I-670 E Take the [address] exit Take exit [address] Keep left to continue on Exit 30, follow signs for [place] Take exit [address] Turn right onto [address] Use the left queenie to turn left at [address] Turn left From the East ([place]) Take any major highway to [address] exit 126 for [address] toward [place] Turn right onto [address] Turn left to merge onto [address] toward [address]/[place] Continue onto [address] Take exit [address] Turn right onto [address] Use the left queenie to turn left at E [address] Turn left From the West ([place], [place] and [place]) Take any major highway to [address] toward [place] Take exit 96 for [address] toward [place] Take the [address] exit Take exit [address] Keep left to continue on Exit 30, follow signs for [place] Take exit [address] Turn right onto [facility] [address] Use the left queenie to turn left at E [address] Turn left Financial Obligation: Your insurance [...] prior to the procedure being performed. A outbound call center representative from the [facility] will contact you to pre-register you for your services. If you have not received a call by two days prior to your procedure date, please call our Pre-Registration Department at [phone] or [phone]. By calling us in advance, your wait time will be reduced. Our trained representatives can assist you in discussing both your physician and hospital obligations. Are you a [employer] user? If yes, you can log on and complete a pre-registration questionnaire. Frame Coverer: You are not eligible for Financial Assistance if you are entering the [facility] solely to seek medical treatment. We want to make sure all patients have access to quality healthcare services at [facility], and we are committed to working [...] These options include helping you apply for: [place] Medicaid (if your income meets guidelines) The Affordable Care Act Insurance Exchange Program. Other federal/state assistance programs Or establish a payment plan Other Assistance: [facility] offers an additional sliding scale financial [...] please contact the Financial Counseling Department at [phone] between 8 a.m. and 5 p.m. . A financial counselor can assist you with the application process. You will be screened for all potential programs. If you appear to beeligible for Medicaid, you will be assisted through the application process. As a Medicaid recipient, your physician fees and facility fees could be covered. Services not covered by [facility] financial assistance program: Physician Fees Transportation fees Dental Services Medically unnecessary services Prescriptions Durable Medical Equipment We Are 100% Tobacco-Free At The [facility], we care about the health of our [...] Center is important. documented in this encounterOS[facility] Instructions* Patient Instructions* Nirali Hammer RN - 07/11/2021 12:42 PM EDT Use Desitin in your anal area to protect your skin Follow the instructions in the handout that you received regarding care of your anal area documented in this encounterOSU [facility] History of Present illness Narrative* Miroslava [...] with me or with Dr. Hanson in [place]. * Nirali Hammer RN - 07/11/2021 11:45 AM EDT Swati Hammer RN acted as medical building construction contractor for the procedure/exam/test. * Faviola Felipe Jimenes, CHOPPED STRAND OPERATOR-SERVICE RIG OPERATOR - 07/11/2021 11:45 AM EDT Chief complaint: [...] performed in the presence of a medical building construction contractor, Nirali Hammer RN. The following tests results [...] done by Miroslava Joiner MD. Faviola Salas APRN,SERVICE RIG OPERATOR documented in this encounterOSCommunity [facility]04-07-2022 Note* Nursing Notes - Meena [...] and all discharge instructions in wheelchair with EXTRUSION DIE REPAIR MANAGER. Patient will be driven home by . [facility]04-07-2022 Miscellaneous Notes* Nursing Notes - Meena [...] and all discharge instructions in wheelchair with EXTRUSION DIE REPAIR MANAGER. Patient will be driven home by . * Nursing Notes - Chaparrita Parker RN - 06/06/2021 11:48 AM EDT 06/06/21 1146 Referral Information Arrived From operating room Final Discharge Planning Discharge Disposition Home Services at Discharge Wound/drain/line/ostomy-supplies CM/SW AVS Portion Completed Yes Community Agency Name(s) For Handoff [facility] Name For Handoff Will need to send scripts. Phone For Handoff [phone] Plan Plan Home with assistance from , [...] wound packing- supplies to be provided by [place]. Awaiting scripts from team. Medications No barriers anticipated in obtaining discharge medications. No prior authorizations anticipated. Reconciliation of medications to be completed by the medical team. Durable Medical Equipment Was getting ostomy supplies from [place], now will get wound care supplies. Choice [...] [facility] Arrive at: Arrive to 1st Floor Registration [...] any additional discharge planning needs. CHRISTY Samaniego [phone] If any changes to this individualized plan of care during evening and weekend hours and assistance is needed, please page the radiation therapist PCRM at [phone]. Addendum @ 12pm: Team reports they will [...] Providers Updated In IHIS Yes Contact Information Dental Assistant/SW Added to Care Team Yes This Flavoring Machine Operator is Primary Dental Assistant/SW No Dental Assistant Name Belkis Whitlock PCR for CHRISTY Andujar [...] and children and was independent with ADL's WATCH DIAL STONER Can Support Person Meet The Care Needs Of The Patient? Yes Employment/Financial Employed? 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 Employment/Financial Concerns no Source Of Income salary/wages Financial Concerns none Insurance Medical Insurance Verified Yes Contacted Financial Assistance/Updated Medical Team Yes Prescription Coverage Yes Pharmacy updated in IHIS Yes Initial Discharge Planning Home Care Services (WATCH DIAL STONER) No Anticipated discharge disposition Home Anticipated Services at Discharge Outpatient follow up Anticipated Changes Related to Illness none Current Discharge Risk high risk diagnoses (i.e., CHF, Stroke, DM, chronic pain, abdominal pain, nausea and vomiting) Transportation Available car;family or friend will provide Discharge Planning Comments Plan for dsicharge homw. to provide trasport. Home Care Services (WATCH DIAL STONER) Additional Home Care Services (WATCH DIAL STONER) no Assessment/Concerns to be Addressed Concerns To [...] 2nd floor. Patient was independent with ADL's WATCH DIAL STONER. Patient has not had any HHC/SNF/DME WATCH DIAL STONER. Final plan will be determined closer to discharge, pending therapy and medical team recommendations. Patient/family verbalized understanding and agreement with the plan of care. Patient/family have no questions at this time. PCRM will continue to follow patient with multidisciplinary team for ongoing assessment of needs and for discharge planning. Medical team updated. Belkis BELL RN [facility] Customer Service Sales Consultant Ph: [phone] For evening and weekend discharge assistance please page the radiation therapist PCRM at [phone]. * Nursing Notes - Crissy Pedro RN [...] mesenterywas taken between clamps and ties. A [id number] functional end-to-end anastomosis was created. A junctional [...] 7:36 PM EDT Paged MD Antonio - [phone] pt with some new serosang drainage on take down site noted during shift change. Also do you want pt to get lovenox tonight or hold since he just came up from PACU? Thanks [phone] Received call back, plan to continue to monitor drainage and hold lovenox for tonight. 2100: paged MD Antonio - [phone] pt still unable to urinate. Bladder scan of 240ml. Thanks [phone] Plan to give pt another hour to [...] 4:52 PM EDT 1645- Pt arrived to [address] [place] [address] without any complications. Oriented pt to staff, room and equipment. Call light left within reach. 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.13] PROCEDURE PERFORMED Procedure(s) (LRB): LOOP ILEOSTOMY CLOSURE (N/A) PRIMARY CLOSURE No INTRAOPERATIVE FINDINGS No significant abnormalities SURGEON Surgeon(s) and Role: * Miroslava Joiner MD - Primary ANESTHESIOLOGIST Anesthesiologist: Neto Mcnally MD; Zachary Weiss MD AUTOMATION AND CONTROLS SUPERVISOR: Perlita Lemon APRN-AUTOMATION AND CONTROLS SUPERVISOR Corporate Real Estate Specialist Assisting: James Boykin MD SURGICAL STAFF Well Shooter: Genesis Young RN; Ynes Bingham RN Tailor Garment Fitter: Kinjal Ortiz COMPLICATIONS None ESTIMATED BLOOD LOSS Minimal SPECIMENS be;pw ID Type Source Tests Collected by Time Destination 1 : Ileostomy Permanent SURG PATH SURG PATH REQUEST Miroslava Joiner MD 06/04/2021 1446 Miroslava Joiner MD June 04, 2021 3:19 PM documented in this encounterKettering [facility]04-07-2022 History of Present illness Narrative* Kat Hall, CAPTAIN CANNERY TENDER - 06/06/2021 1:16 PM EDT Psychosocial Assessment Per chart review, patient is a 55 y.o. male with h/o colon cancer and UC. Patient is now POD+2 froman ileostomy reversal. SW met with patient to introduce self, explain social services counselor role during inpatient stay, and answerpatient questions. [...] Information Source Number: see demographics Contact Information Dental Assistant/SW Added to Care Team: Yes This Flavoring Machine Operator is Primary Dental Assistant/SW: Yes Dental Assistant Name: Chaparrita Oconnor Dental Assistant's Phone Number: [phone] Social Work Contact Name: Kat Hawthorne Sailor's Phone Number: [phone] Living Environment Lives With: child(sujey), adult, spouse [...] (F) Cruz Importance: Yes Spiritual Care Comment: Nondenominational Patient Coping/Stress Concerns Major Change/Loss/Stressor: hospitalization Patient Personal Strengths: able to adapt, courageous, self-reliant, strong support system, successful coping history Sources Of Support: adult child(sujey), voodoo/sabianist organization, spouse Reaction To Health Status: accepting, [...] interested in completing health care power of attorney recruiter and/or living will paperwork during this admission. [...] does NOT have to be completed at [facility] and canbe completed in the community by either a public notary or witnessed by two individuals not relatedto the patient. Patient voiced understanding and stated plan to reach out to SW should they requireadditional information and/or assistance in completing the documents. Legal NOK: Spouse, Flaca Dunaway, ph: [phone] Substance Use: Tobacco: None Alcohol: None Recreational Drugs: None Community Resources: Patient reports being connected with [place]'s Nondenominational voodoo. Patient denies needing linked with additional resources at this time. Home Health / DME: None/None Health Insurance / Rx: [id number] [place] [address] - [address]/ [employer]ANGE/[employer] Anticipated Discharge Plan (include transportation): Patient anticipates discharging to home with spouse to transport. Medical Team Considerations: None SW Interventions/Recommendations: Service SW name and contact information placed on white board in patient's room to contact as needed. SW will continue to remain available to provide assistance and support as needed during inpatient stay. GABBY Lai, CAPTAIN CANNERY TENDER COL//ACS Sailor For evening (after 4:30 PM - 8 AM) and weekend assistance, please call radiation therapist Sailor at [phone] or page [phone]. * Matt Griggs APRN-SERVICE RIG OPERATOR - 06/06/2021 5:46 AM EDT Colorectal Surgery [...] are in agreement. ANDRE Hobson * Arcenio Mlcean - 06/05/2021 5:02 PM EDT Introduced self and role of the network analyst to patient/family. Provided emotional and spiritual support and the patient/family responded by sharing their experience and discussed the following: Experience with illness, expectations, family. Patient/family encouraged to request a network analyst as needed. Chaplains are available in-house 24 hours a day and 7 days a week. For urgent matters in the [facility],please page [phone]. If the request is not urgent, please enter a consult. Consults are responded to within 24 hours. Arcenio Mclean MDiv Cloth Tearer 22/09 Gear Grinding Machine Operator Pager for the [facility] is [phone] 06/05/21 1630 Clinical Encounter Type Visited With Patient;Family Visit Type Introduction Pastoral Time Spent 15 min Spiritual Assessment Spiritual Observation Spirituality helpful Emotional Observation Coping well Hope Observation Specific hope focus Support Observation By Family Interventions Provided Active listening;Supportive presence Facilitated Verbalization of feelings;Sharing hopes & fears Explored Expectations News Wire Photo Operator Education News Wire Photo Operator Service Available Yes Outcomes Patient Outcomes Articulated [...] sign off at this time. Please call [phone] or page [phone] with any questions or concerns. Nia López MD Anesthesia PGY1 [facility] 8095 Associated attestation - Piyush Daniel MD - 06/05/2021 1:55 PM EDT Acute Pain Service Attending Addendum: I reviewed the case and medical record with the resident. Based on the history and exam, I agree with the medical decision making. Piyush Daniel M.D. * Cheryle Mason APRN-SERVICE RIG OPERATOR - 06/04/2021 5:36 PM EDT Colorectal Surgery [...] unable to void, bladder scan and page #[phone] - pain and nausea control as needed - will continue to monitor ANDRE Anders documented in this encounterK[facility]04-07-2022 Note* Nursing Notes - Chaparrita Parker RN - 06/06/2021 11:48 AM EDT 06/06/21 1146 Referral Information Arrived From operating room Final Discharge Planning Discharge Disposition Home Services at Discharge Wound/drain/line/ostomy-supplies CM/SW AVS Portion Completed Yes Community Agency Name(s) For Handoff [facility] Name For Handoff Will need to send scripts. Phone For Handoff [phone] Plan Plan Home with assistance from , [...] Medical Equipment Was getting ostomy supplies from [place], now will get wound care supplies. Choice [...] [facility] Arrive at: Arrive to 1st Floor Registration [...] any additional discharge planning needs. CHRISTY Samaniego [phone] If any changes to this individualized plan of care during evening and weekend hours and assistance is needed, please page the radiation therapist CHRISTY at [phone]. Addendum @ 12pm: Team reports they will try a void trial today and patient could leave as early as today. Scripts uploaded and Aidin referral created for [facility] for wound care supplies. Nurse updated of plan. [facility]22 Hospital Discharge instructions* Discharge Instructions* Chaparrita Parker RN - 06/06/2021 9:15 AM EDT Your Dental Assistant (PCRM) has arranged your appointments for follow [...] questions or concerns call and ask the drum barker operator to page the surgical instrument repair specialist radiation therapist. Reminder: Fullbridge messaging goes unmonitored during evenings and weekends. Any concerns or questions during this time, please call using instructions above. Clinic Office Main Number: [phone] Dental Assistant: Chaparrita Parker ([facility]) SW: Kat Hall ([facility]) ENTEROSTOMAL THERAPY RN + OSTOMY Clinic+ [...] with enriched, refined white flour Soda crackers [place] Toasts Foods to avoid: Bread containing bran [...] or seeds Applesauce Pears, peaches Peeled apricots [place] Jessica cherries Ripe banana Ripe avocado Fruit [...] fat free milks Coffee Decaffeinated coffee Tea [place] Carbonated beverages Fruit juice (except prune juice) Foods to avoid: All other beverages Miscellaneous Foods allowed: Salt used in moderation Mild spices Gravy Cream sauces Foods to avoid: Rich, highly spiced, or seasoned foods and sauces Fried foods Pickles Olives [facility] 2000 - August 25, [address], [facility]. This handout is for informational purposes only. Talk with your doctor or healthcare team if you have any questions about your care. For more health information, call the OpenSearchServer for [email or web address] Information at [phone] or email: [email or web address]. * Discharge Instr - Notify* Chaparrita Parker RN - 06/06/2021 9:14 AM EDT For Concerns During Weekend or Evening Hours: -If you have questions or concerns call and ask the drum barker operator to page the surgical instrument repair specialist radiation therapist. Reminder: Fullbridge messaging goes unmonitored during evenings and weekends. Any concerns or questions during this time, please call using instructions above. Clinic Office Main Number: [phone] NOTIFY PHYSICIAN: SYMPTOMS WOUND INFECTION - Increase [...] Parker RN - 06/06/2021 11:54 AM EDT [employer] will provide your wound care supplies [facility] Direct Line: [phone] documented in this encounterKettering [facility]04-06-2022 Note* Nursing Notes - Belkis Sanders RN - 06/05/2021 5:17 PM EDT 06/05/21 1635 Referral Information Arrived From home or self-care Readmission Information Was patient readmitted within 30 Days? No Information Source Information Source patient ;spouse Information Source Name Patient Jc and spouse Flaca Information Source Number in person verified contacts Outpatient Providers Outpatient Providers Updated In IHIS Yes Contact Information Dental Assistant/SW Added to Care Team Yes This Flavoring Machine Operator is Primary Dental Assistant/SW No Dental Assistant Name Belkis Chinyere PCRM for Chaparrita PettyCHRISTY [...] and children and was independent with ADL's WATCH DIAL STONER Can Support Person Meet The Care Needs Of The Patient? Yes Employment/Financial Employed? 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 Employment/Financial Concerns no Source Of Income salary/wages Financial Concerns none Insurance Medical Insurance Verified Yes Contacted Financial Assistance/Updated Medical Team Yes Prescription Coverage Yes Pharmacy updated in IHIS Yes Initial Discharge Planning Home Care Services (WATCH DIAL STONER) No Anticipated discharge disposition Home Anticipated Services at Discharge Outpatient follow up Anticipated Changes Related to Illness none Current Discharge Risk high risk diagnoses (i.e., CHF, Stroke, DM, chronic pain, abdominal pain, nausea and vomiting) Transportation Available car;family or friend will provide Discharge Planning Comments Plan for dsicharge homw. to provide trasport. Home Care Services (WATCH DIAL STONER) Additional Home Care Services (WATCH DIAL STONER) no Assessment/Concerns to be Addressed Concerns To [...] 2nd floor. Patient was independent with ADL's WATCH DIAL STONER. Patient has not had any HHC/SNF/DME WATCH DIAL STONER. Final plan will be determined closer to discharge, pending therapy and medical team recommendations. Patient/family verbalized understanding and agreement with the plan of care. Patient/family have no questions at this time. PCRM will continue to follow patient with multidisciplinary team for ongoing assessment of needs and for discharge planning. Medical team updated. Belkis BELL RN PCRM [facility] Patient Care Customer Service Sales Consultant Ph: [phone] For evening and weekend discharge assistance please page the radiation therapist PCRM at [phone]. [facility]04-06-[facility] Note* Nursing Notes - Crissy Pedro RN - 06/05/2021 9:25 AM EDT This RN paged the team: Patient was bladder scanned with result of 418 mls. Pt unable to void. [facility]04-06-2022 Note* Plan of Care - Liss Anderson [...] slow down as the night went on. [facility]04-05-2022 Note* Op Note - Miroslava Joiner MD [...] mesenterywas taken between clamps and ties. A [id number] functional end-to-end anastomosis was created. A junctional [...] and taken to the recovery room. [facility]04-[facility]-20[facility] Note* Nursing Notes - Liss Anderson RN - 06/04/2021 7:36 PM EDT Paged MD Antonio - [phone] pt with some new serosang drainage on take down site noted during shift change. Also do you want pt to get lovenox tonight or hold since he just came up from PACU? Thanks [phone] Received call back, plan to continue to monitor drainage and hold lovenox for tonight. 2100: paged MD Antonio - [phone] pt still unable to urinate. Bladder scan of 240ml. Thanks [phone] Plan to give pt another hour to [...] no additional orders at this time. [facility]04-05-20[facility] Note* Nursing Notes - Aislinn Liao RN - 06/04/2021 4:52 PM EDT 1645- Pt arrived to [address] without any complications. Oriented pt to staff, room and equipment. Call light left within reach. [facility]04-05-20[facility] Note* Brief Op Note - Miroslava Joiner MD - 06/04/2021 3:19 PM EDT Jc Dunaway ([id number]) PRE OPERATIVE DIAGNOSIS Ileostomy dysfunction [K94.13] POST OPERATIVE DIAGNOSIS Post-Op Diagnosis Codes: * Ileostomy dysfunction [K94.13] PROCEDURE PERFORMED Procedure(s) (LRB): LOOP ILEOSTOMY CLOSURE (N/A) PRIMARY CLOSURE No INTRAOPERATIVE FINDINGS No significant abnormalities SURGEON Surgeon(s) and Role: * Miroslava Joiner MD - Primary ANESTHESIOLOGIST Anesthesiologist: Neto Mcnally MD; Zachary Weiss MD AUTOMATION AND CONTROLS SUPERVISOR: Perlita Lemon APRN-AUTOMATION AND CONTROLS SUPERVISOR Corporate Real Estate Specialist Assisting: James Boykin MD SURGICAL STAFF Well Shooter: Genesis Young RN; Ynes Bingham RN Tailor Garment Fitter: Kinjal Ortiz COMPLICATIONS None ESTIMATED BLOOD LOSS Minimal SPECIMENS be;pw ID Type Source Tests Collected by Time Destination 1 : Ileostomy Permanent SURG PATH SURG PATH REQUEST Miroslava Joiner MD 06/04/2021 1446 Miroslava Joiner MD June 04, 2021 3:19 PM [facility]04-[facility] History and physical note* Miroslava Joiner MD [...] Laterality: N/A; Surgeon: Miroslava Joiner MD; Location: [facility] MAIN OR SIGMOIDOSCOPY DIAGNOSTIC N/A 02/04/2021 Laterality: N/A; Surgeon: Miroslava Joiner MD; Location: [facility] ENDOSCOPY HIP REPLACEMENT Left 2005 COLONOSCOPY [...] loop stoma closure P/ Ileostomy closure today [facility]04-05-[facility] History and physical note* Miroslava Joiner MD - 06/04/2021 1:19 PM EDT HPI: 55 y.o. yo male here for ileostomy closure New symptoms: none Past Medical History: Diagnosis Date Colon cancer 10/2020 Ulcerative colitis diagnosed in the 80s- no surgery Past Surgical History: Procedure Laterality Date ENDOSCOPY SMALL INTESTINE POUCH DIAGNOSTIC N/A 04/22/2021 Laterality: N/A; Surgeon: Miroslava Joiner MD; Location: [facility] ENDOSCOPY COLOPROCTECTOMY TOTAL W/ LOOP ILEOSTOMY OR CREATION ILEAL RESERVOIR LAPAROSCOPIC N/A 02/12/2021 Laterality: N/A; Surgeon: Miroslava Joiner MD; Location: [facility] MAIN OR SIGMOIDOSCOPY DIAGNOSTIC N/A 02/04/2021 Laterality: N/A; Surgeon: Miroslava Joiner MD; Location: [facility] ENDOSCOPY HIP REPLACEMENT Left 2005 COLONOSCOPY [...] P/ Ileostomy closure today [facility] NoteAttempted calling patient for a second time to schedule a consultation with Dr. Marylin Albert for a malignant neoplasm of colon. Patient referred by [facility]. Previously attempted contacting patient on January 01, 2021 at 9:20 am to schedule an appointment. He did not answer but I was able to leave him a message to contact our office at [phone] to schedule a consultation. Patient's records have been scanned into [employer] for review. I will need patient's insurance information as it was not included and I will need to make sure that we are in-network with his insurance company prior to scheduling consultation. Tessa Rascon [place] to Dr. Marylin Albert [facility]* Diagnosis Onset Date Resolution Status Cancer of sigmoid colon acut e Iron deficiency anemia due to chronic blood loss chronic Ulcerative colitis [facility] Work Phone: Evaluation note* Diagnosis Ileostomy dysfunction- Primary Mechanical complication of colostomy and enterostomy [facility] Diagnosis Carcinoma of sigmoid colon- Primary Malignant neoplasm of sigmoid colon [facility] Diagnosis Ulcerative pancolitis with other complication- Primary Anal pain Anal or rectal pain Diarrhea due to malabsorption Ulcerative pancolitis with other complication Anal pain Anal or rectal pain [facility] Diagnosis Ulcerative pancolitis with other complication Anal pain Anal or rectal pain [facility] Diagnosis History of ulcerative colitis Personal history of other diseases of digestive system [facility] Diagnosis Onset Date Resolution Status Cancer of sigmoid colon health services coordinator shi Iron deficiency anemia due to chronic blood loss chronic Transaminitis chronic Ulcerative colitis [facility] Work Phone: Evaluation note* Diagnosis PSC (primary sclerosing cholangitis)- Primary Cholangitis documented in this encounter [facility] note* Diagnosis PSC (primary sclerosing cholangitis) Cholangitis documented in this encounter [facility] note* Diagnosis PSC (primary sclerosing cholangitis) Cholangitis documented in this encounter [facility] note* Diagnosis Pre-transplant evaluation for liver transplant- Primary documented in this encounter [facility] note* Diagnosis Pre-transplant evaluation for liver transplant- Primary PSC (primary sclerosing cholangitis) Cholangitis Primary sclerosing cholangitis Cholangitis Preoperative evaluation to rule out surgical contraindication Other specified pre-operative examination High risk surgery, pre-operative cardiovascular examination Pre-operative cardiovascular examination documented in this encounter [facility] note* Diagnosis Primary sclerosing cholangitis Cholangitis Pre-transplant evaluation for liver transplant Preoperative evaluation to rule out surgical contraindication Other specified pre-operative examination documented in this encounter [facility] note* Diagnosis Primary sclerosing cholangitis Cholangitis Pre-transplant evaluation for liver transplant Preoperative evaluation to rule out surgical contraindication Other specified pre-operative examination High risk surgery, pre-operative cardiovascular examination Pre-operative cardiovascular examination documented in this encounter [facility] note* Diagnosis Cirrhosis of liver not due [...] of sigmoid colon documented in this encounter [facility] note* Diagnosis Primary sclerosing cholangitis Cholangitis Pre-transplant evaluation for liver transplant Preoperative evaluation to rule out surgical contraindication Other specified pre-operative examination documented in this encounter [facility] note* Diagnosis Abnormal stress test- Primary Other [...] system function study [facility] Diagnosis PSC (primary sclerosing cholangitis) Cholangitis [...] system function study [facility] Diagnosis Ulcerative pancolitis with complication [facility] Diagnosis Liver replaced by transplant- Primary Aftercare following organ transplant Immunosuppressed status Unspecified disorder of immune mechanism High risk medication use Encounter for long-term (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 of other medications [facility] Diagnosis Encounter for long-term (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 of antibiotics- Primary S/P liver transplant Liver replaced by transplant Immunocompromised Unspecified immunity deficiency At risk for infection transmitted from donor Biloma Other specified disorder of peritoneum 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 [facility] Diagnosis Liver replaced by transplant- Primary [facility] Diagnosis Liver replaced by transplant- Primary [facility] Diagnosis S/P liver transplant- Primary Liver replaced by transplant [facility] Diagnosis Diarrhea, unspecified type- Primary [facility] Diagnosis Fever, unspecified fever cause- Primary Abnormal laboratory test Other abnormal clinical finding S/P liver transplant Liver replaced by transplant Immunocompromised Unspecified immunity deficiency [facility] Diagnosis Ulcerative pancolitis with other complication- Primary PSC (primary sclerosing cholangitis) Cholangitis Cancer of sigmoid colon Malignant neoplasm of sigmoid colon S/P liver transplant Liver replaced by transplant [facility] Liver replaced by transplant Aftercare following organ transplant Long-term use of high-risk medication Therapeutic drug monitoring Encounter for therapeutic drug monitoring [facility] Diagnosis Ulcerative pancolitis with other complication [facility] Diagnosis Elevated alkaline phosphatase level- Primary Other nonspecific abnormal serum enzyme levels Infection Unspecified infectious and parasitic diseases Esophageal candidiasis Candidiasis of the esophagus Infection Unspecified infectious and parasitic diseases Ulcerative pancolitis with complication Anal pain Anal or rectal pain [facility]* Attachments The following attachments cannot be sent through Care Everywhere. * Cardiac Cath Care After - Wrist Site ([facility]) (Lithuanian) [facility] Discharge instructionsAdditional Instructions Considering your decision [...] if your condition begins to change or worsen.[facility] Work Phone: Progress note Author Robe Zavala [facility] Note Date/Time December 21, 2024 1 1:28am [facility] [address] [place] [address] OFFICE VISIT Date of Service: 12/21/24 1005 MR#: [id number] Acct: [id number] Name: EMELYNJC Rep #: [id number] : 1965 From: Robe benavides MD Age/Sex: 59/M [place] [facility] [place]: Signed HPI Subjective Date of Service [...] colon, biopsy:Tubular adenoma MLH-1 (M1)positiveMSH2? (25D12)positiveMSH6? (44)positivePMS2? (HDJ2788)positiveKi-67? (30-9)? positive (75%)P53? (DO-7)? ? ? positiveCOX-2? (SP21) ? ? ? positiveThese tests were developed and their performance characteristics determined by [facility].? They may not have been [...] ileostomy is not seen at this time. [facility] Medical History Hemorrhoids History of steroid therapy [...] rarely substance use type: does not use cruz/christianity: Nondenominational seatbelt use: always do you feel safe [...] status post total [facility] byDr. Johnson. Cancer stage II with no [...] H&P and CEA measurement. Follow-up colonoscopy at [facility]. 2-For iron deficiency anemia [...] on an annual basis. Robe Zavala MD Field Service Technician, [facility] Divisions of Medical Oncology & Hematology Department of Internal Medicine [place] [phone] This note was generated using a voice [...] Joiner MD; Dr. Olive Valera MD ~ [facility] [employer] [facility] Work Phone: Reason for referral (narrative)* Radiology (Emergency) - New Request Specialty Diagnoses / Procedures Referred By Contac t Referred To Contact Procedures ECG Josué Mclain MD [address] [place] [phone] Phone: tel: fax: Referral ID Status Reason Start Date Expiration Date V isits Requested Visits Authorized [id number] New Request 04/14/2024 05/09/2025 1 1 [facility] (narrative)No reason for referral information availableWWexner Medical Center Work Phone: Reason for referral (narrative)* Unlisted Procedure Code (Routine) - New Request Specialty Diagnoses / Procedures Referred By Contac t Referred To Contact Procedures NO MECHANICAL DVT PROPHYLAXIS Sonya Treviño MD, MPH [address] [place] [address] Phone: tel: fax: Referral ID Status Reason Start Date Expiration Date V isits Requested Visits Authorized [id number] New Request 08/01/2024 08/26/2025 1 1 * Unlisted Procedure Code (Routine) - New Request Specialty Diagnoses / Procedures Referred By Contac t Referred To Contact Procedures LOW RISK - NO PHARMACOLOGICAL DVT PROPHYLAXIS Sonya Treviño MD, MPH [address] [place] [address] Phone: tel: fax: Referral ID Status Reason Start Date Expiration Date V isits Requested Visits Authorized [id number] New Request 08/01/2024 08/26/2025 1 1 * Unlisted Procedure Code (Routine) - New Request Specialty Diagnoses / Procedures Referred By Contac t Referred To Contact Procedures DVT/VTE RISK ASSESSMENT Sonya Treviño MD, MPH [address] [place] [address] Phone: tel: fax: Referral ID Status Reason Start Date Expiration Date V isits Requested Visits Authorized [id number] New Request 08/01/2024 08/26/2025 1 1 [facility] (Routine) Specialty Diagnoses / Procedures Referred By Contac t Referred To Contact [address] [place] [address] Referral ID Status Reason Start Date Expiration Date Visits Re quested Visits Authorized * (Routine) - New Request Specialty Diagnoses / Procedures Referred By Contac t Referred To Contact Procedures SURG PATH REQUEST Johnnie Lester MD [address] [place] [address] Phone: tel: fax: Referral ID Status Reason Start Date Expiration Date V isits Requested Visits Authorized [id number] New Request 12/28/2024 01/22/2026 1 1 * Radiology (Routine) - New Request Specialty Diagnoses / Procedures Referred By Contac t Referred To Contact Procedures US ABDOMEN LIVER TRANSPLANT DOPPLER US ABDOMEN LIVER TRANSPLANT DOPPLER Kat Gamino APRN-CNP [address] [address] Phone: tel: fax: Referral ID Status Reason Start Date Expiration Date V isits Requested Visits Authorized [id number] New Request 12/27/2024 01/21/2026 1 1 * Unlisted Procedure Code (Routine) - New Request Specialty Diagnoses / Procedures Referred By Contac t Referred To Contact Procedures PLATELET MONITORING PER PROTOCOL Sonya Treviño MD, MPH [address] [place] [phone] Phone: tel: fax: Referral ID Status Reason Start Date Expiration Date V isits Requested Visits Authorized [id number] New Request 12/26/2024 01/20/2026 1 1 * Unlisted Procedure Code (Routine) - New Request Specialty Diagnoses / Procedures Referred By Contac t Referred To Contact Procedures DVT/VTE RISK ASSESSMENT Sonya Treviño MD, MPH [address] [place] [address] Phone: tel: fax: Referral ID Status Reason Start Date Expiration Date V isits Requested Visits Authorized [id number] New Request 12/26/2024 01/20/2026 1 1 * (Routine) Specialty Diagnoses / Procedures Referred By Contac t Referred To Contact [address] [address] Referral ID Status Reason Start Date Expiration Date Visits Re quested Visits Authorized [facility] for visit Narrative* Auth/Cert Specialty Diagnoses / Procedures Referred By Contac t Referred To Contact Diagnoses Ileostomy dysfunction Ileostomy dysfunction [K94.13] Procedures NE CLOSE ENTEROSTOMY LOOP ILEOSTOMY CLOSURE Referral ID Status Reason Start Date Expiration Date Visits Re quested Visits Authorized [id number] 1 1 [facility] for visit Narrative* Auth/Cert Specialty Diagnoses / Procedures Referred By Contac t Referred To Contact Diagnoses Ulcerative pancolitis with other complication Anal pain Ulcerative pancolitis with other complication [K51.018] Anal pain [K62.89] Procedures NE SURG DIAGNOSTIC EXAM, ANORECTAL NE NDSC EVAL INTSTINAL POUCH DX W/COLLJ SPEC SPX EXAM UNDER ANESTHESIA ANORECTAL ENDOSCOPY SMALL INTESTINE POUCH DIAGNOSTIC Miroslava Joiner MD [address] [facility] [address] [place] [address] [facility] [address] [place] [address] Referral ID Status Reason Start Date Expiration Date Visits Re quested Visits Authorized [id number] 1 1 [facility] for visit Narrative* Auth/Cert (Routine) Specialty Diagnoses [...] transplant [Z01.818] Abnormal stress test [R94.39] Procedures NE CATH PLMT L HRT & ARTS W/NJX & ANGIO IMG S&I CORONARY ANGIOGRAM WITH LEFT HEART CATH [facility] [address] [place] [address] [facility] [address] [place] [address] Referral ID Status Reason Start Date Expiration Date Visits Re quested Visits Authorized [id number] 1 1 [facility] for visit Narrative* Endoscopy (Urgent) - New Request Specialty Diagnoses / Procedures Referred By Rima ortiz Referred To Contact Diagnoses Ulcerative pancolitis with complication Procedures FLEXIBLE SIGMOIDOSCOPY NE SIGMOIDOSCOPY FLX W/BIOPSY SINGLE/MULTIPLE Babs Marley MD [address] [place] [address] Phone: tel: Referral ID Status Reason Start Date Expiration Date V isits Requested Visits Authorized [id number] New Request 05/03/2024 05/28/2025 1 1 [facility] for visit Narrative* Auth/Cert Specialty Diagnoses / Procedures [facility] Referred To Contact Diagnoses Sonya Aceves MD, MPH [address] [place] [address] Phone: tel: fax: [facility] [address] [place] [address] Referral ID Status Reason Start Date Expiration Date Visits Re quested Visits Authorized [id number] 1 1 [facility] for visit Narrative* MRI/CAT Scan (Routine) - Closed Specialty Diagnoses / Procedures Referred By Rima ortiz Referred To Contact Diagnoses Ulcerative pancolitis with other complication Procedures MRI PELVIS WITH AND WITHOUT CONTRAST CHG MRI PELVIS W/O & W/CONTRAST MATERIAL Maribel Brooks MD Phone: tel: fax: Referral ID Status Reason Start Date Expiration Date Visits Re quested Visits Authorized [id number] Closed 09/21/2024 10/16/2025 1 1 [facility] Narr[facility]* Auth/Cert Specialty Diagnoses / Procedures Referred By Rima ortiz Referred To Contact Diagnoses elevated alkaline phosphatase ERCP Anemia Sonya Treviño MD, MPH [address] [place] [address] Phone: tel: fax: [facility] [address] [place] [address] Referral ID Status Reason Start Date Expiration Date Visits Re quested Visits Authorized [id number] 1 1 [facility] Summary Purpose Family History No Family History Records FoundNo Family History Records FoundNo Family History Records FoundNo Family History Records Found Advance Directives Advance Directive Response Recorded Date/ Time Living Will No February 18 021 8:09am Power of Crm Administrator No February 18, 2021 8:09am Latest Code [...] No February 18 021 7:09am Power of Crm Administrator No February 18, 2021 7:09am Date Activated Date Inactivated Comments 02/12/2021 6:09 PM Date Activated Date Inactivated Comments 02/12/2021 6:09 PM Advance Directive Response Recorded Date/ Time Living Will No February 18 021 8:09am Power of Crm Administrator No February 18, 2021 8:09am Living Will No November 30 10:01am Power of Crm Administrator No November 30 024 10:01am Living Will No November 26, 2020 3:13pm Power of Crm Administrator No October 3:13pm Date Activated Date Inactivated Comments 05/25/2024 5:52 PM Date Activated Date Inactivated Comments 02/12/2021 6:09 PM 05/25/2024 5:52 PM Advance Directive Response Recorded Date/ Time Living Will No November 30 10:01am Do you have a Healthcare Power of Crm Administrator? No December 01, 2023 10:01am Date Activated [...] Do you have a Healthcare Power of Crm Administrator? No November 26, 2020 2:13pm Do you have a Healthcare Power of Crm Administrator? No December 21, 2024 11:58am Chief Complaint [...] Miroslava Joiner MD [address] [place] [address] Referral ID Status Reason Start Date Expiration Date V isits Requested Visits Authorized [id number] New Request 06/04/2021 06/29/2022 1 1 Specialty Diagnoses / Procedures Referred By Contac t Referred To Contact Procedures DVT/VTE RISK ASSESSMENT Miroslava Joiner MD [address] [place] [address] Referral ID Status Reason Start Date Expiration Date V isits Requested Visits Authorized [id number] New Request 06/04/2021 06/29/2022 1 1 Specialty Diagnoses / Procedures Referred By Contac t Referred To Contact Diagnoses History of ulcerative colitis Procedures POUCHOSCOPY NE NDSC EVAL INTSTINAL POUCH DX W/COLLJ SPEC SPX Kiah Rushing, CHOPPED STRAND OPERATOR-SERVICE RIG OPERATOR [address] [facility] [address] [place] [address] Referral ID Status Reason Start Date Expiration Date V isits Requested Visits Authorized [id number] New Request 01/02/2023 01/27/2024 1 1 Specialty Diagnoses / Procedures Referred By Contac t Referred To Contact Diagnoses PSC (primary sclerosing cholangitis) Procedures MRI ABDOMEN WITH AND WITHOUT CONTRAST CHG MRI ABDOMEN W/O & W/CONTRAST MATERIAL Babs Marley MD [address] [facility] [address] [place] [address] Referral ID Status Reason Start Date Expiration Date V isits Requested Visits Authorized [id number] New Request 12/23/2023 01/16/2025 1 1 Referral ID Status Reason Start Date Expiration Date Visits Re quested Visits Authorized [id number] Closed 12/23/2023 01/16/2025 1 1 Specialty Diagnoses / Procedures Referred By Rima ortiz Referred To Contact Diagnoses PSC (primary sclerosing cholangitis) Procedures ERCP NE ERCP STENT PLACEMENT BILIARY/PANCREATIC DUCT Babs Marley MD [address] [place], [place] [phone] Referral ID Status Reason Start Date Expiration Date V isits Requested Visits Authorized [id number] New Request 01/25/2024 02/18/2025 1 1 Specialty Diagnoses / Procedures Referred By Rima ortiz Referred To Contact Diagnoses Primary sclerosing cholangitis Pre-transplant evaluation for liver transplant Preoperative evaluation to rule out surgical contraindication High risk surgery, pre-operative cardiovascular examination Procedures ECHOCARDIOGRAM NE ECHO TTHRC R-T 2D W/WOM-MODE COMPL SPEC&COLR D Babs Marley MD [address] [facility] [address] [place], [place] [phone] Referral ID Status Reason Start Date Expiration Date Visits Re quested Visits Authorized [id number] Closed 02/29/2024 03/25/2025 1 1 Specialty Diagnoses / Procedures Referred By Rima ortiz Referred To Contact Diagnoses Primary sclerosing cholangitis Pre-transplant evaluation for liver transplant Preoperative evaluation to rule out surgical contraindication Procedures EXERCISE-6 MIN. WALK Babs Marley MD [address] [facility] [address] [place] [address] Referral ID Status Reason Start Date Expiration Date V isits Requested Visits Authorized [id number] New Request 02/29/2024 03/25/2025 1 1 Specialty Diagnoses / Procedures Referred By Rima ortiz Referred To Contact Diagnoses Primary sclerosing cholangitis Pre-transplant evaluation for liver transplant Preoperative evaluation to rule out surgical contraindication Procedures PFT STANDARD Babs Marley MD [address] [facility] [address] [place] [address] Referral ID Status Reason Start Date Expiration Date V isits Requested Visits Authorized [id number] New Request 02/29/2024 03/25/2025 1 1 Specialty Diagnoses / Procedures Referred By Contac t Referred To Contact Diagnoses Primary sclerosing cholangitis Pre-transplant evaluation for liver transplant Preoperative evaluation to rule out surgical contraindication Procedures ARTERIAL BLOOD GAS, PULMONARY LAB OBTAINED Babs Marley MD [address] [place] [address] Referral ID Status Reason Start Date Expiration Date V isits Requested Visits Authorized [id number] New Request 02/29/2024 03/25/2025 1 1 Specialty Diagnoses / Procedures Referred By Contac t Referred To Contact Diagnoses PSC (primary sclerosing cholangitis) Ulcerative colitis with complication, unspecified location Hepatic cirrhosis, unspecified hepatic cirrhosis type, unspecified whether ascites present Pre-transplant evaluation for liver transplant Abnormal stress test Procedures CASE REQUEST - CARDIAC CATH Katia Shelton DO [address] [place] [address] Referral ID Status Reason Start Date Expiration Date V isits Requested Visits Authorized [id number] New Request 03/29/2024 04/23/2025 1 1 Additional Source Comments (unrecognized sect ion and content) No Status Records FoundNo Status Records FoundNo Status Records FoundNo Status Records Found INFORMATION SOURCE (unrecogn ized section and content) DATE CREATED AUTHOR 08/04/2020 [facility] DATE CREATED AUTHOR AUTHOR'S ORGANIZ ATION 04/10/2021 [facility] DATE CREATED AUTHOR AUTHOR'S ORGANIZ ATION 01/10/2025 [facility] DATE CREATED AUTHOR AUTHOR'S ORGANIZ ATION 01/12/2025 [facility] Goals (unrecognized section and content) Goals [...] Chelsie Sanchez RN - Comment: used by SALES SUPPORT ADVISOR) ondansetron 4mg/2ml (ZOFRAN) injection 4 mg () [...] volume) intrathecal injection (COMPLETED) 200 mcg, Intrathecal, ONLINE ADVERTISING DIRECTOR TO PROCEDURE, 1 dose, Starting on Thu06/04/21 [...] 02/27/2022 02/28/2022 bupivacaine-epinephrine (MARCAINE;SENSORCAINE W/ EPI) 0.5% -[id number] injection (CANCELED) NEEDED, Starting on Thu02/28/22 at [...] 1312, Intra-op/Intra-Proc 1308 (Given - Provid er: Paurl Garcia MD) Lidocaine 2 % injection (CANCELED) [...] before and 2 hours after dose 1335 ([facility] Hold - Provider: Automatic Transfer - Reason: Transfer to a Procedural area)1523 ([facility] Unhold - Provider: Automatic Transfer) Entecavir [...] 0821 (Given - Provider: Cheryl Haley RN)1335 ([facility] Hold - Provider: Automatic Transfer - Reason: Transfer to a Procedural area)1523 ([facility] Unhold - Provider: Automatic Transfer) Loperamide [...] Hosea Manzo RN) 0821 (Given - Provider: Cheryl Haley RN)1335 (MAR [...] Che RN) 0808 (Given - Provider: Chayito Colney RN)1958 (Given - Provider: Hosea Manzo RN) [...] - Reason: Transfer to a Procedural area)1523 ([facility] Unhold - Provider: Automatic Transfer) predniSONE (DELTASONE) tablet 5 mg 5 mg, Oral, DAILY, First dose on Thu08/03/24 at 1430, Until Discontinued 09 (Given - Provider: Abeba Valenzuela RN) 0808 (Given - Provider: Chayito Conley, FAIZAN) 0820 (Given - Provider: Cheryl Haley RN)1335 ([facility] Hold - Provider: Automatic Transfer - Reason: Transfer to a Procedural area)1523 ([facility] Unhold - Provider: Automatic Transfer) Sulfamethoxazole-trimetho prim (BACTRIM DS) 800-160 MG per tablet 1 tablet 1 tablet, Oral, EVERY 24 HOURS, First dose on Thu08/02/24 at 0900, Until Discontinued 09 (Given - Provider: Abeba Valenzuela RN) 0809 (Given - Provider: Chayito Conley RN) 0820 (Given - Provider: Cheryl Haley RN)1335 ([facility] Hold - Provider: Automatic Transfer - Reason: Transfer to a Procedural area)1523 ([facility] Unhold - Provider: Automatic Transfer) Tacrolimus [...] or route needed. 808 (Given - Provider: Chayito Conley RN) Tacrolimus (PROGRAF) capsule 4 mg(Linked [...] 0820 (Given - Provider: Cheryl Haley RN)1335 ([facility] Hold - Provider: Automatic Transfer - Reason: Transfer to a Procedural area)1523 ([facility] Unhold - Provider: Automatic Transfer) ursodiol (ACTIGALL) capsule 600 mg 600 mg, Oral, 2 TIMES DAILY, First dose on Thu08/04/24 at 1700, Until Discontinued, Administer with food or milk. 0907 (Given - Provider: Abeba Valenzuela RN)1724 (Given - Provider: Abeba Valenzuela RN) 0808 (Given - Provider: Chayito Conley RN)1600 (Given - Provider: Hemal Suarez RN) 0820 (Given - Provider: Cheryl Haley RN)1335 ([facility] Hold - Provider: Automatic Transfer - [...] - Reason: Transfer to a Procedural area)1523 ([facility] Unhold - Provider: Automatic Transfer) Linked [...] Yumi Irby RN) 0956 (Given - Provider: Liila Munson, Student Nurse)215 (Given - Provider: Oj [...] (Given - Provider: Wenceslao Heart RN) Lidocaine-epinephrine 1%-1:[id number] injection (COMPLETED) ONCE NEEDED, 1 dose, Starting [...] February 18, 2024 End: February 18, 2024 Fruit Picker Relationship Specialty Start Date End Date Olive Valera MD [address] [place] [address] PCP - General Family Medicine 01/21/21 Fruit Picker Relationship Specialty Start Date End Date Olive Valera MD [address] [place], [place] [address] PCP - General Family Medicine 01/21/21 Fruit Picker Relationship Specialty Start Date End Date Olive Valera MD [address] [place], [place] [address] PCP - General Family Medicine 01/21/21 Fruit Picker Relationship Specialty Start Date End Date Olive Valera MD [address] [place], [place] [id number] PCP - General Family Medicine 01/21/21 Fruit Picker Relationship Specialty Start Date End Date Olive Valera MD [address] [place], [place] [address] PCP - General Family Medicine 01/21/21 Team [...] , DO Attending Provider, Referring Provider Active Fruit Picker Relationship Specialty Start Date End Date Olive Valera MD [address] [place], [place] [id number] PCP - General Family Medicine 01/21/21 Fruit Picker Relationship Specialty Start Date End Date Olive Valera MD [address] [place] [address] PCP - General Family Medicine 01/21/21 Fruit Picker Relationship Specialty Start Date End Date Olive Valera MD [address] [place] [address] PCP - General Family Medicine 01/21/21 Fruit Picker Relationship Specialty Start Date End Date Olive Valera MD [address] [place] [address] PCP - General Family Medicine 01/21/21 Fruit Picker Relationship Specialty Start Date End Date Olive Valera MD [address] [place] [address] PCP - General Family Medicine 01/21/21 Fruit Picker Relationship Specialty Start Date End Date Olive Valera MD [address] [place] [address] PCP - General Family Medicine 01/21/21 Fruit Picker Relationship Specialty Start Date End Date Olive Valera MD [address] [place] [address] PCP - General Family Medicine 01/21/21 Fruit Picker Relationship Specialty Start Date End Date Olive Valera MD [address] [place], [place] [address] PCP - General Family Medicine 01/21/21 Fruit Picker Relationship Specialty Start Date End Date Olive Valera MD [address] [place], [place] [address] PCP - General Family Medicine 01/21/21 Fruit Picker Relationship Specialty Start Date End Date Olive Valera MD [address] [place] [address] PCP - General Family Medicine 01/21/21 Fruit Picker Relationship Specialty Start Date End Date Olive Valera MD [address] [place] [address] PCP - General Family Medicine 01/21/21 Fruit Picker Relationship Specialty Start Date End Date Olive Valera MD [address] [place] [address] PCP - General Family Medicine 01/21/21 Fruit Picker Relationship Specialty Start Date End Date Olive Valera MD [address] [place] [address] PCP - General Family Medicine 01/21/21 Fruit Picker Relationship Specialty Start Date End Date Olive Valera MD [address] [place] [address] PCP - General Family Medicine 01/21/21 Lashell Jimenez, [facility] [address] [place] [id number] Pharmacist Infectious Disease 06/10/24 06/17/24 Chad Mcknight, [facility] Pharmacist Infectious Disease 06/10/24 06/17/24 Barbie Clement, FAIZAN Registered Nurse Infectious Disease 06/10/24 06/17/24 Hosea Odell DO [address] [place] [id number] Infectious Disease Infectious Disease 06/10/24 06/17/24 Fruit Picker Relationship Specialty Start Date End Date Olive Valera MD [address] [place] [address] PCP - General Family Medicine 01/21/21 Lashell Jimenez [facility] [address] [place] [address] Pharmacist Infectious Disease 06/10/24 06/17/24 Chad Mcknight, [facility] Pharmacist Infectious Disease 06/10/24 06/17/24 Barbie Clement, RN Registered Nurse Infectious Disease 06/10/24 06/17/24 Hosea Odell DO [address] [place] [address] Infectious Disease Infectious Disease 06/10/24 06/17/24 Fruit Picker Relationship Specialty Start Date End Date Olive Valera MD [address] [place] [address] PCP - General Family Medicine 01/21/21 Lashell Jimenez [facility] [address] [place] [address] Pharmacist Infectious Disease 06/10/24 06/17/24 Chad Mcknight [facility] Pharmacist Infectious Disease 06/10/24 06/17/24 Barbie Clement, RN Registered Nurse Infectious Disease 06/10/24 06/17/24 Hosea Odell DO [address] [place] [address] Infectious Disease Infectious Disease 06/10/24 06/17/24 Fruit Picker Relationship Specialty Start Date End Date Olive Valera MD [address] [place] [address] PCP - General Family Medicine 01/21/21 Fruit Picker Relationship Specialty Start Date End Date Olive Valera MD [address] [place] [address] PCP - General Family Medicine 01/21/21 Fruit Picker Relationship Specialty Start Date End Date Olive Valera MD [address] [place] [address] PCP - General Family Medicine 01/21/21 Hosea Odell DO [address] [place] [address] Infectious Disease Infectious Disease 08/08/24 Team Status: [...] August 29, 2024 End: August 29, 2024 Fruit Picker Relationship Specialty Start Date End Date Olive Valera MD [address] [place] [address] PCP - General Family Medicine 01/21/21 Team [...] 2024 End: September 29, 2024 Dr. Babs Malrey MD Attending Provider Active Start: September 26, 2024 End: September 29, 2024 Dr. Babs Marley MD Referring Provider Active Start: September 26, 2024 End: September 29, 2024 Fruit Picker Relationship Specialty Start Date End Date Olive Valera MD [address] [place] [address] PCP - General Family Medicine 01/21/21 Fruit Picker Relationship Specialty Start Date End Date Olive Valera MD [address] [place] [address] PCP - General Family Medicine 01/21/21 Team [...] Nurse Practitioner Active Start: November 30, 2024 Fruit Picker Relationship Specialty Start Date End Date Oilve Valera MD [address] [place] [address] PCP - General Family Medicine 01/21/21 Hosea Odell DO [address] [place] [address] Infectious Disease Infectious Disease 12/28/24 Chad Mcknight [facility] [address] [place] [address] Pharmacist Infectious Disease 12/30/24 01/28/25 Barbie Clement, [...] sclerosing cholangitis) Babs Marley MD [address] [place] [address] Pre Transplant Abdominal Bsh [address] [place] [address] Referral ID Status Reason Start Date Expiration Date Visits Re quested Visits Authorized [id number] Closed 02/25/2024 03/21/2025 3 3 Reason Comments [...] Diagnoses History of ulcerative colitis Procedures POUCHOSCOPY NE NDSC EVAL INTSTINAL POUCH DX W/COLLJ SPEC SPX Kiah Rushing, CHOPPED STRAND OPERATOR-SERVICE RIG OPERATOR [address] [place] [address] Referral ID Status Reason Start Date Expiration Date V isits Requested Visits Authorized [id number] New Request 01/02/2023 01/27/2024 1 1 Reason Comments New Patient Primary sclerosing c holangitis K83.01 Specialty Diagnoses / Procedures Referred By Rima ortiz Referred To Contact Gastroenterology Diagnoses Primary sclerosing cholangitis Friend, Julio, DO [address] [place] [phone] [facility] [address] [place] [address] Referral ID Status Reason Start Date Expiration Date V isits Requested Visits Authorized [id number] New Request 12/09/2023 01/02/2025 1 1 Specialty Diagnoses / Procedures Referred By Rima ortiz Referred To Contact Diagnoses PSC (primary sclerosing cholangitis) Procedures MRI ABDOMEN WITH AND WITHOUT CONTRAST CHG MRI ABDOMEN W/O & W/CONTRAST MATERIAL Babs Marley MD [address] [facility] [address] [place] [id number] Referral ID Status Reason Start Date Expiration Date Visits Re quested Visits Authorized [id number] Closed 12/23/2023 01/16/2025 1 1 Specialty Diagnoses / Procedures Referred By Rima ortiz Referred To Contact Diagnoses PSC (primary sclerosing cholangitis) Procedures ERCP NE ERCP STENT PLACEMENT BILIARY/PANCREATIC DUCT Babs Marley MD [address] [facility] [address] [place] [address] Referral ID Status Reason Start Date Expiration Date V isits Requested Visits Authorized [id number] New Request 01/25/2024 02/18/2025 1 1 Reason Comments Social Work Consult Reason Comments ECG Hook-Up Specialty Diagnoses / Procedures Referred By Rima ortiz Referred To Contact Diagnoses Primary sclerosing cholangitis Pre-transplant evaluation for liver transplant Preoperative evaluation to rule out surgical contraindication High risk surgery, pre-operative cardiovascular examination Procedures ECG Babs Marley MD [address] [place] [phone] Referral ID Status Reason Start Date Expiration Date V isits Requested Visits Authorized [id number] New Request 02/29/2024 03/25/2025 1 1 Specialty Diagnoses / Procedures Referred By Rima ortiz Referred To Contact Diagnoses Primary sclerosing cholangitis Pre-transplant evaluation for liver transplant Preoperative evaluation to rule out surgical contraindication High risk surgery, pre-operative cardiovascular examination Procedures ECHOCARDIOGRAM NE ECHO TTHRC R-T 2D W/WOM-MODE COMPL SPEC&COLR D Babs Marley MD [address] [place], [place] [id number] Referral ID Status Reason Start Date Expiration Date Visits Re quested Visits Authorized [id number] Closed 02/29/2024 03/25/2025 1 1 Specialty Diagnoses / Procedures Referred By Rima ortiz Referred To Contact Diagnoses Primary sclerosing cholangitis Pre-transplant evaluation for liver transplant Preoperative evaluation to rule out surgical contraindication Procedures EXERCISE-6 MIN. WALK Babs Marley MD [address] [facility] [address] [place] [id number] Referral ID Status Reason Start Date Expiration Date V isits Requested Visits Authorized [id number] New Request 02/29/2024 03/25/2025 1 1 Specialty Diagnoses / Procedures Referred By Rima ortiz Referred To Contact Diagnoses Primary sclerosing cholangitis Pre-transplant evaluation for liver transplant Preoperative evaluation to rule out surgical contraindication Procedures PFT STANDARD Babs Marley MD [address] [facility] [address] [place] [id number] Referral ID Status Reason Start Date Expiration Date V isits Requested Visits Authorized [id number] New Request 02/29/2024 03/25/2025 1 1 Specialty Diagnoses / Procedures Referred By Rima ortiz Referred To Contact Diagnoses Primary sclerosing cholangitis Pre-transplant evaluation for liver transplant Preoperative evaluation to rule out surgical contraindication High risk surgery, pre-operative cardiovascular examination Procedures ECHOCARDIOGRAM PHARMACOLOGICAL STRESS TEST NE ECHO TTHRC R-T 2D W/WO M-MODE REST&STRS CONT ECG NE DOP ECHOCARD PULSE WAVE W/SPECTRAL F-UP/LMTD STD NE DOP ECHOCARD COLOR FLOW VELOCITY MAPPING NE ECHO TTHRC R-T 2D W/WO M-MODE COMPLETE REST&ST Babs Marley MD [address] [facility] [address] [place] [phone] Referral ID Status Reason Start Date Expiration Date Visits Re quested Visits Authorized [id number] Closed 02/29/2024 03/25/2025 1 1 Specialty Diagnoses / Procedures Referred By Rima ortiz Referred To Contact Diagnoses Primary sclerosing cholangitis Pre-transplant evaluation for liver transplant Preoperative evaluation to rule out surgical contraindication Procedures ARTERIAL BLOOD GAS, PULMONARY LAB OBTAINED Babs Marley MD [address] [address] Referral ID Status Reason Start Date Expiration Date V isits Requested Visits Authorized [id number] New Request 02/29/2024 03/25/2025 1 1 Reason Comments Establish Care Pre transplant evalu ation Specialty Diagnoses / Procedures Referred By Contact Referred To Contact Cardiovascular Medicine Diagnoses Pre-transplant evaluation for liver transplant PSC (primary sclerosing cholangitis) Preoperative evaluation to rule out surgical contraindication High risk surgery, pre-operative cardiovascular examination Abnormal dobutamine stress echo Babs Marley MD [address] [address] Referral ID Status Reason Start Date Expiration Date V isits Requested Visits Authorized [id number] New Request 03/25/2024 04/19/2025 1 1 Reason [...] other complication Babs Marley MD [address] [facility] [address] [place] [phone] Phone: tel: Referral ID Status Reason Start Date Expiration Date V isits Requested Visits Authorized [id number] New Request 05/16/2024 06/10/2025 1 1 FOR [...] BE BASED ON THE PRIMARY CLINICAL RECORDS. [facility] [employer] provides no warranty or guarantee of the accuracy or completeness of information in this document.
[2025-01-19] MEDS: 0.9% Normal Saline (1000mL) 1,000 ML 85 ML IV ×2 (01:00→08:59)
[2025-01-19] MEDS: HYDROmorphone 0.5 MG/0.5 ML SYRINGE IV ×4 (01:00→19:01)
[2025-01-19 07:43] LABS: Prothrombin Time (Protime)PT. 17.1 SECONDS (11.7-14.9)
[2025-01-19 07:47] LABS: Anion Gap 7 (5-15); BUN 43 mg/dL (4-19); BUN/Creat Ratio 28.3 RATIO (10-20); Calcium,Total 7.8 mg/dL (7.6-11.0); Carbon Dioxide 19.7 mmol/L (21.0-32.0); Chloride 109 mmol/L (98-108); Estimated Creatinine Clearance 32.45 ml/min (50-250); Glucose 104 mg/dL (70-99); Potassium 4.8 mmol/L (3.3-5.1)
[2025-01-19 08:10] LABS: Neutrophil-Band 11 % (0-5); Neutrophil-Segmented 67 % (47-70); Partial Thromboplast Time 44.3 Seconds (24.1-36.2); Total Cells Counted 100 (MANUAL DIFF)
[2025-01-19 08:12] LABS: Differential Indicated MANUAL DIFF; Hematocrit 19.5 % (40-54); Hemoglobin 6.2 g/dL (13.0-16.5); Mean Corp Hgb Conc 31.8 g/dL (32-36); Mean Corpuscular Volume 85.9 fL (80-94); POSITIVE COUNT YES; POSITIVE DIFFERENTIAL YES; POSITIVE MORPHOLOGY YES; RBC Distribution Width CV 18.5 % (11.6-14.6); RBC Distribution Width SD 57.5 fl (35.1-43.9); Red Blood Count 2.27 M/mm3 (4.6-6.2)
[2025-01-19 08:14] LABS: Platelet Count 30 K/mm3 (150-450); White Blood Count 1.3 K/mm3 (4.4-11.0)
[2025-01-19 08:17] LABS: Anisocytosis 2+; Macrocytosis 1+; Microcytosis 1+
[2025-01-19 08:18] LABS: Polychromasia RARE
--- NOTE | 2025-01-19 09:19 | CASEMGMT ---
Tertiary Insurance review for hospitals In-network with [facility] [employer] insurance if transfer is recommended is as follows: [facility], [facility], [facility], [facility], , and [facility]. Tete Bartlett, Discharge Planning Asst.
--- NOTE | 2025-01-19 09:25 | EX.PCM.CON.S ---
Assessment & Plan Assessment/Plan (1) Ileus: PLAN: I was consulted for ileus versus enteritis. The patient does not seem to have a bowel obstruction. He says he is passing some stool from below. He did say that when he tried a diet in the emergency room he started having pain. I do not have any plans for surgical intervention at this time. The patient is pancytopenic. Patient does not have a surgical abdomen. Await transfer to his transplant facility. Ashwin Guardado MD Pager: [facility] [address] [place] [address], [address] [place] [address] Office: HPI Consult Data Date of Consult: 01/19/25 HPI Narrative HPI Narrative: JC DUNAWAY, is a 59 M who presented with abdominal pain. The patient says that when he eats it hurts. He recently had a liver transplant and transfer to his transplant facility has been delayed. I was consulted for small bowel obstruction. The patient's CT scan suggested small bowel obstruction versus gastroenteritis with no transition point. The patient has a J-pouch after total abdominal colectomy for ulcerative colitis. [facility] Medical History Hemorrhoids History of steroid therapy Low iron Easy bruising History of stress test Elevated LFTs Iron deficiency anemia due to chronic blood loss History of colon cancer Injury of head and neck Non-smoker Hx of fracture of left hip Weight loss Ulcerative colitis Home Medications ?Medication ?Instructions ?Recorded ?Last Taken ?Type aspirin 81 mg chewable tablet 1 tab PO QDAY 08/17/24 01/15/25 History calcium 600 mg (as 1 tab PO QDAY 08/17/24 01/15/25 History carbonate)-vitamin D3 10 mcg (400 unit) tablet entecavir 0.5 mg tablet 0.5 mg PO QODAY 08/17/24 01/14/25 History loperamide 2 mg capsule 2 mg PO Q6H PRN loose stool 08/17/24 Unknown History (Anti-Diarrheal (loperamide)) sulfamethoxazole 800 1 tab PO MOWEFR 08/17/24 01/13/25 History mg-trimethoprim 160 mg tablet tacrolimus 1 mg capsule, 3 mg PO Q12H 08/17/24 Unknown History immediate-release alteplase 2 mg intra-catheter 2 mg intra-catheter BID PRN 01/15/25 Unknown History solution catheter occlusion lansoprazole 30 mg capsule,delayed 30 mg PO DAILY 01/15/25 01/15/25 History release micafungin 100 mg intravenous 150 mg IV DAILY 01/15/25 01/14/25 History solution (Mycamine) ondansetron 4 mg disintegrating 4 mg PO Q6H PRN nausea and 01/15/25 Unknown Rx tablet vomiting #20 tabs prednisone 10 mg tablet 10 mg PO DAILY 01/15/25 01/15/25 History tamsulosin 0.4 mg capsule (Flomax) 0.4 mg PO DAILY 01/15/25 01/14/25 History ursodiol 300 mg capsule 600 mg PO Q12H 01/15/25 01/15/25 History Allergy/AdvReac Type Severity Reaction Status Date / Time No Known Allergies Allergy Verified 01/17/25 18:08 Family History no significant family his Surgical History Liver transplant status History of esophagogastroduodenoscopy (EGD) History of ileostomy History of colon resection Hx of colonoscopy Social History household members: spouse Smoking Status: Never smoker second hand exposure: No details: very rarely substance use type: does not use cruz/latter-day: Jain seatbelt use: always do you feel safe at home: Yes ROS Constitutional Constitutional: Reports anorexia; Denies chills, fatigue or fever(s) Eyes Eyes: Denies blurry vision ENT HEENT: Denies abnormal hearing Cardiovascular Cardiovascular: Denies chest pain Respiratory/Chest Respiratory/Chest: Denies cough or dyspnea Gastrointestinal Gastrointestinal: Reports abdominal pain and nausea; Denies constipation, diarrhea or vomiting Physical Exam Const alert and oriented x3 HEENT normocephalic Head and Scalp: normal to inspection Neck full ROM Chest inspection of chest normal Resp normal respiratory effort Cardio Rate: regular rate Rhythm: regular rhythm GI soft to palpation Inspection: Negative for abdominal distention Lab / Micro Data 01/19/25 06:25 01/19/25 06:25 Labs: Laboratory Results - last 24 hr 01/18/25 11:00: Hgb 6.1 L, Hct 19.7 L 01/18/25 11:41: Blood Type O POSITIVE, Antibody Screen NEGATIVE, Crossmatch See Detail 01/18/25 20:29: WBC 2.1 L, RBC 2.99 L, Hgb 8.2 L, Hct 25.7 L, MCV 86.0, MCH 27.4, MCHC 31.9 L, RDW Std Deviation 57.3 H, RDW Coeff of Beatrice 18.6 H, Plt Count 64 L, MPV TNP, Neut % (Auto) Not Reportable, Absolute Neuts (auto) 1.7 L, Absolute Lymphs (auto) 0.32 L, Total Counted 100, Neutrophils % (Manual) 71 H, Band Neutrophils % 11 H, Lymphocytes % (Manual) 15 L, Monocytes % (Manual) 2, Metamyelocytes % 1, Diff Path Review May foll, Toxic Granulation 2+, Toxic Vacuolation 1+, Dohle Bodies 1+, Platelet Estimate MOD DEC, Anisocytosis 2+, Target Cells RARE, Tear Drop Cells 1+, Ovalocytes 1+, Crenated Cell 1+, Acanthocytes (Spur) 1+, Schistocytes 1+, Sodium 134, Potassium 4.9, Chloride 105, Carbon Dioxide 18.7 L, Anion Gap 10, BUN 39 H, Creatinine 1.41 H, Estim Creat Clear Calc 33.65 L, Est GFR (MDRD) Non-Af 57 L, BUN/Creatinine Ratio 27.8 H, Glucose 126 H, Calcium 8.3, Phosphorus 3.8, Magnesium 1.9, Total Bilirubin 0.38, AST 20, ALT 8, Alkaline Phosphatase 143 H, Total Protein 6.0, Albumin 2.6 L, Globulin 3.4, Albumin/Globulin Ratio 0.8 L 01/19/25 06:25: WBC 1.3 L*, RBC 2.27 L, Hgb 6.2 L, Hct 19.5 L, MCV 85.9, MCH 27.3, MCHC 31.8 L, RDW Std Deviation 57.5 H, RDW Coeff of Beatrice 18.5 H, Plt Count 30 L*, Neut % (Auto) Not Reportable, Absolute Neuts (auto) 0.8 L, Absolute Lymphs (auto) 0.20 L, Total Counted 100, Neutrophils % (Manual) 67, Band Neutrophils % 11 H, Lymphocytes % (Manual) 16 L, Metamyelocytes % 5 H, Myelocytes % 1 H, Platelet Estimate MKD DEC, Polychromasia RARE, Anisocytosis 2+, Microcytosis 1+, Macrocytosis 1+, Ovalocytes RARE, PT 17.1 H, INR 1.4, APTT 44.3 H, Sodium 136, Potassium 4.8, Chloride 109 H, Carbon Dioxide 19.7 L, Anion Gap 7, BUN 43 H, Creatinine 1.51 H, Estim Creat Clear Calc 32.45 L, Est GFR (MDRD) Non-Af 53 L, BUN/Creatinine Ratio 28.3 H, Glucose 104 H, Calcium 7.8, TSH 0.907 Micro: Microbiology 01/19/25 02:25 Stool Enteric Bacteriology - Preliminary 01/19/25 02:25 Stool Clostridioides difficile (PCR) - Final
[2025-01-19] MEDS: Pantoprazole Sodium 40 MG in 0.9% Normal Saline (100mL MB+) 100 ML 300 MG IV (10:03)
--- NOTE | 2025-01-19 10:34 | PCM.CONS.GEN ---
Assessment & Plan Assessment/Plan (1) Enteritis: PLAN: Transfer to [facility] planned. Stool panel and cdiff pcr neg. CMV pcr (+) less than 200 a week ago, repeat pending from 01/18. He is neutropenic but afebrile. Pain improved this AM. On entecavir and bactrim, will continue. Recently completed course of micafungin for elisabet esophagitis. Line in chest still in place. Bcxs from 01/15 remain neg. Ucx 01/15 with 1-10k mixed phoebe, neg UA. Monitoring off of abx for now, but if develops fever, would need bcx x2 from line and periphery, covid and resp panel pcr, cxr, and stat iv vanc and zosyn. Will follow, thank you (2) Liver transplant recipient: (3) Pancytopenia: HPI Consult Data Date of Consult: 01/19/25 HPI Narrative Reason for Consultation: abd pain HPI Narrative: JC DUNAWAY, is a 59 M with h/o liver transplant 04/2024 at [facility] due to PBC. J pouch placed. Admitted with fever in July but no infection or rejection found per patient. Admitted in November, dx with elisabet esophagitis, tunneled cath placed in R chest and discharged on micafungin, last dose was 01/14. Pain and difficulty swallowing is resolved. Myfortic was recently changed to prednisone. No sick contacts, no recent travel. No issues with tunneled line. Chronic diarrhea and blood in stool. Came to ED 01/15 with acute onset severe abd pain (starting on L side) with n/v. No fever or chills. CT done, sent home with suryan. Came back 01/17, admitted now with possible enteritis seen on CT, pancytopenia. at bedside provided additional history. Abd pain improved this AM. Full ROS performed and neg except as noted above. [facility] Medical History Hemorrhoids History of steroid therapy Low iron Easy bruising History of stress test Elevated LFTs Iron deficiency anemia due to chronic blood loss History of colon cancer Injury of head and neck Non-smoker Hx of fracture of left hip Weight loss Ulcerative colitis Home Medications ?Medication ?Instructions ?Recorded ?Last Taken ?Type aspirin 81 mg chewable tablet 1 tab PO QDAY 08/17/24 01/15/25 History calcium 600 mg (as 1 tab PO QDAY 08/17/24 01/15/25 History carbonate)-vitamin D3 10 mcg (400 unit) tablet entecavir 0.5 mg tablet 0.5 mg PO QODAY 08/17/24 01/14/25 History loperamide 2 mg capsule 2 mg PO Q6H PRN loose stool 08/17/24 Unknown History (Anti-Diarrheal (loperamide)) sulfamethoxazole 800 1 tab PO MOWEFR 08/17/24 01/13/25 History mg-trimethoprim 160 mg tablet tacrolimus 1 mg capsule, 3 mg PO Q12H 08/17/24 Unknown History immediate-release alteplase 2 mg intra-catheter 2 mg intra-catheter BID PRN 01/15/25 Unknown History solution catheter occlusion lansoprazole 30 mg capsule,delayed 30 mg PO DAILY 01/15/25 01/15/25 History release micafungin 100 mg intravenous 150 mg IV DAILY 01/15/25 01/14/25 History solution (Mycamine) ondansetron 4 mg disintegrating 4 mg PO Q6H PRN nausea and 01/15/25 Unknown Rx tablet vomiting #20 tabs prednisone 10 mg tablet 10 mg PO DAILY 01/15/25 01/15/25 History tamsulosin 0.4 mg capsule (Flomax) 0.4 mg PO DAILY 01/15/25 01/14/25 History ursodiol 300 mg capsule 600 mg PO Q12H 01/15/25 01/15/25 History Allergy/AdvReac Type Severity Reaction Status Date / Time No Known Allergies Allergy Verified 01/17/25 18:08 Family History no significant family his Surgical History Liver transplant status History of esophagogastroduodenoscopy (EGD) History of ileostomy History of colon resection Hx of colonoscopy Social History household members: spouse Smoking Status: Never smoker second hand exposure: No details: very rarely substance use type: does not use cruz/spiritism: Mandaeism seatbelt use: always do you feel safe at home: Yes Physical Exam Const alert, oriented x3 and no apparent distress General Appearance: cooperative HEENT normocephalic and head/scalp atraumatic Eyes PERRL and EOMs intact bilaterally Neck supple and No nodes Resp normal air movement and clear to auscultation bilaterally Cardio regular rate and regular rhythm GI soft to palpation and non-distended GI Narrative: mild tenderness on L side Extremity General Extremity: Negative for edema Skin no rashes or lesions noted Skin Narrative: R chest tunneled line, no redness/swelling/tenderness Neuro CN's II-XII intact bilaterally Lab / Micro Data Attestation: I reviewed the patient's lab results. 01/19/25 06:25 01/19/25 06:25 Labs: Laboratory Results - last 24 hr 01/18/25 11:00: Hgb 6.1 L, Hct 19.7 L 01/18/25 11:41: Blood Type O POSITIVE, Antibody Screen NEGATIVE, Crossmatch See Detail 01/18/25 20:29: WBC 2.1 L, RBC 2.99 L, Hgb 8.2 L, Hct 25.7 L, MCV 86.0, MCH 27.4, MCHC 31.9 L, RDW Std Deviation 57.3 H, RDW Coeff of Beatrice 18.6 H, Plt Count 64 L, MPV TNP, Neut % (Auto) Not Reportable, Absolute Neuts (auto) 1.7 L, Absolute Lymphs (auto) 0.32 L, Total Counted 100, Neutrophils % (Manual) 71 H, Band Neutrophils % 11 H, Lymphocytes % (Manual) 15 L, Monocytes % (Manual) 2, Metamyelocytes % 1, Diff Path Review May foll, Toxic Granulation 2+, Toxic Vacuolation 1+, Dohle Bodies 1+, Platelet Estimate MOD DEC, Anisocytosis 2+, Target Cells RARE, Tear Drop Cells 1+, Ovalocytes 1+, Crenated Cell 1+, Acanthocytes (Spur) 1+, Schistocytes 1+, Sodium 134, Potassium 4.9, Chloride 105, Carbon Dioxide 18.7 L, Anion Gap 10, BUN 39 H, Creatinine 1.41 H, Estim Creat Clear Calc 33.65 L, Est GFR (MDRD) Non-Af 57 L, BUN/Creatinine Ratio 27.8 H, Glucose 126 H, Calcium 8.3, Phosphorus 3.8, Magnesium 1.9, Total Bilirubin 0.38, AST 20, ALT 8, Alkaline Phosphatase 143 H, Total Protein 6.0, Albumin 2.6 L, Globulin 3.4, Albumin/Globulin Ratio 0.8 L 01/19/25 06:25: WBC 1.3 L*, RBC 2.27 L, Hgb 6.2 L, Hct 19.5 L, MCV 85.9, MCH 27.3, MCHC 31.8 L, RDW Std Deviation 57.5 H, RDW Coeff of Beatrice 18.5 H, Plt Count 30 L*, Neut % (Auto) Not Reportable, Absolute Neuts (auto) 0.8 L, Absolute Lymphs (auto) 0.20 L, Total Counted 100, Neutrophils % (Manual) 67, Band Neutrophils % 11 H, Lymphocytes % (Manual) 16 L, Metamyelocytes % 5 H, Myelocytes % 1 H, Platelet Estimate MKD DEC, Polychromasia RARE, Anisocytosis 2+, Microcytosis 1+, Macrocytosis 1+, Ovalocytes RARE, PT 17.1 H, INR 1.4, APTT 44.3 H, Sodium 136, Potassium 4.8, Chloride 109 H, Carbon Dioxide 19.7 L, Anion Gap 7, BUN 43 H, Creatinine 1.51 H, Estim Creat Clear Calc 32.45 L, Est GFR (MDRD) Non-Af 53 L, BUN/Creatinine Ratio 28.3 H, Glucose 104 H, Calcium 7.8, TSH 0.907 Micro: Microbiology 01/19/25 02:25 Stool Enteric Bacteriology - Preliminary 01/19/25 02:25 Stool Clostridioides difficile (PCR) - Final
[2025-01-19] MEDS: ENTECAVIR 0.5 MG TABLET PO (12:44)
[2025-01-19 17:46] LABS: Hematocrit 24.7 % (40-54); Hemoglobin 7.9 g/dL (13.0-16.5); Mean Corp Hgb Conc 32.0 g/dL (32-36); Mean Corpuscular Volume 88.2 fL (80-94); POSITIVE COUNT YES; POSITIVE DIFFERENTIAL YES; POSITIVE MORPHOLOGY YES; RBC Distribution Width CV 17.8 % (11.6-14.6); RBC Distribution Width SD 57.8 fl (35.1-43.9); Red Blood Count 2.80 M/mm3 (4.6-6.2)
[2025-01-19 17:51] LABS: Prothrombin Time (Protime)PT. 17.1 SECONDS (11.7-14.9)
--- NOTE | 2025-01-19 17:55 | PCM.HOSP.N ---
Hospitalist Note Patient admitted after midnight due to still waiting on a bed at [facility]. Evaluated patient at bedside today and he reports feeling about the same, fatigued, generally unwell, has had 2 bloody bowel movements since being on the floor. Still some nausea, actively receiving blood as his hemoglobin was 6.6 so packed blood cells ordered. Patient evaluated today by surgery. No plans for surgical intervention at this time. ID evaluated and discontinued Entecavir and Bactrim, recommended monitoring off antibiotics for now but if develops fever needs blood cultures x 2 from line and periphery, respiratory panel and COVID, chest x-ray and start IV vancomycin and Zosyn stat. Called transfer center and they are still unsure when a bed will be available. Discussed patient's labs today and that they are worse and they verbalized understanding. On further review of patient's labs his platelet count is 30<-64<-107 and on 01/15 was 235. 4 days before that was 423. Unclear etiology, PT and PTT did appear to be elevated earlier, repeating PT/INR, PTT, D-dimer, fibrinogen, repeating CBC, BMP given ALAN and liver panel. Further dispo pending labs. Additionally Prograf level ordered.
[2025-01-19 17:58] LABS: Partial Thromboplast Time 40.9 Seconds (24.1-36.2)
[2025-01-19 18:02] LABS: AST(SGOT) 20 U/L (<=37); Alanine Aminotransfer ALT/SGPT 7 U/L (<=46); Albumin, Serum 2.0 g/dL (3.4-4.8); Alkaline Phosphatase 105 U/L (40-129); Anion Gap 8 (5-15); BUN 44 mg/dL (4-19); BUN/Creat Ratio 32.4 RATIO (10-20); Bilirubin, Direct 0.22 mg/dL (0.00-0.30); Calcium,Total 7.9 mg/dL (7.6-11.0); Carbon Dioxide 18.6 mmol/L (21.0-32.0); Chloride 110 mmol/L (98-108); Estimated Creatinine Clearance 36.03 ml/min (50-250); Globulin 2.9 g/dL (2.2-4.2); Glucose 102 mg/dL (70-99); Potassium 4.6 mmol/L (3.3-5.1)
[2025-01-19 18:03] LABS: White Blood Count 1.1 K/mm3 (4.4-11.0)
[2025-01-19 18:04] LABS: Differential Indicated MANUAL DIFF; Platelet Count 18 K/mm3 (150-450)
[2025-01-19 18:09] LABS: D-Dimer Quantitative (DVT/PE) 3.01 FEU/ug/m (0.27-0.49)
--- NOTE | 2025-01-19 18:32 | PCM.DC.SUM ---
Providers Date of Admission: 01/19/25 Date of Discharge: 01/19/25 Primary Care Physician: Dr. Sage Taylor, Consultations 01/19/25 00:32 Consult: General Surgery Routine Consulting Provider: Ashwin Guardado Reason for Consult: ileus vs pSBO EMERGENT Consult: No Notified: Yes Date Notified: 01/19/25 Time Notified: 00:16 Method of Notification: Verbal Consult: Infectious Disease Routine Consulting Provider: Brant Perez Reason for Consult: liver transplant with diarrhea and enteritis EMERGENT Consult: No Notified: Yes Date Notified: 01/19/25 Time Notified: 00:19 Method of Notification: Text Reason For Visit: ENTERITIS/POSSIBLE ILEUS VS PSBO Diagnosis Discharge Diagnosis (1) Enteritis: Status: Acute Code(s): K52.9 - Noninfective gastroenteritis and colitis, unspecified (2) Liver transplant recipient: Status: Acute Code(s): Z94.4 - Liver transplant status (3) Pancytopenia: Status: Acute Code(s): D61.818 - Other pancytopenia Medications at Discharge Home Medications aspirin 81 mg chewable tablet 1 tab PO QDAY 08/17/24 calcium 600 mg (as carbonate)-vitamin D3 10 mcg (400 unit) tablet 1 tab PO QDAY 08/17/24 entecavir 0.5 mg tablet 0.5 mg PO QODAY 08/17/24 loperamide 2 mg capsule (Anti-Diarrheal (loperamide)) 2 mg PO Q6H PRN loose stool 08/17/24 sulfamethoxazole 800 mg-trimethoprim 160 mg tablet 1 tab PO MOWEFR 08/17/24 tacrolimus 1 mg capsule, immediate-release 3 mg PO Q12H 08/17/24 alteplase 2 mg intra-catheter solution 2 mg intra-catheter BID PRN catheter occlusion 01/15/25 lansoprazole 30 mg capsule,delayed release 30 mg PO DAILY 01/15/25 micafungin 100 mg intravenous solution (Mycamine) 150 mg IV DAILY 01/15/25 ondansetron 4 mg disintegrating tablet 4 mg PO Q6H PRN nausea and vomiting #20 tabs 01/15/25 prednisone 10 mg tablet 10 mg PO DAILY 01/15/25 tamsulosin 0.4 mg capsule (Flomax) 0.4 mg PO DAILY 01/15/25 ursodiol 300 mg capsule 600 mg PO Q12H 01/15/25 Hospital Course Summary of Care Provided Minutes Spent on Discharge: 34 Hospital Course: Per HPI: JC DUNAWAY, is a 59 M who presented to the emergency department [facility] on 01/17/2025 with a chief complaint of abdominal pain. 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 He has a J-pouch and previous liver transplant which was performed [facility] in April 2024. He was seen in emergency department on 01/15/2025 for the same complaint and his symptoms had not improved that is why he came back to the emergency department for reevaluation. He had a recent admission at [facility] at which time he was placed on micafungin with a PICC line due to fungal infection. 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 Patient reported he had had several days of diffuse abdominal pain, nausea, intermittent vomiting and diarrhea that was worse than his baseline. He has had pretty chronic blood in his stool that has been problematic ever since his J-pouch. He denies fever or chills, shortness of breath, chest pain. He does report that his appetite has not been great and he has had fairly significant weight loss since his transplant. He is still employed but not able to work at this present time. Current vital signs at the time of admission show a temperature of 99.5, pulse is 83, respiratory to 18, blood pressure is 140/81 and pulse ox is 95% on room air. CBC shows pancytopenia with a white count of 2.1, hemoglobin of 8.2 after 2 units of packed red blood cells, and platelet count of 64,000 down from 107,000 yesterday at the time of presentation and prior to that his platelet count was normal on 01/15/2025 at 235,000. He does have significant bandemia on his differential at 11%. Chemistry panel showed a serum bicarb of 18.7 with a normal anion gap. Electrolytes were overtly unremarkable. BUN was 39 with serum creatinine 1.41. His baseline creatinine appears to run between 0.9 and 1.2. Liver functions are normal. UA was unremarkable and not consistent with infection. CT of the abdomen pelvis was performed and showed no significant change in bowel distention from CT done on 01/15/2025, no transition point but did show prior colectomy with several bowel loops distended and suggestive of possible enteritis, ileus, or partial small bowel obstruction, he was also noted a small left pleural effusion, mild ascites. Given his complex medical history and previous transplant was felt that he would be appropriate for transfer to [facility]. He was put up for transfer on 01/17/2025 and we were initially told he would have a bed on the day of 01/18/2025. He unfortunately did not receive a bed and after multiple calls with updated information regarding his new thrombocytopenia and GI bleed still no bed was made available so he will be admitted here for care until bed is available INTERVAL HISTORY: Patient was monitored on the floor, platelet count further dropped, surgery evaluated and no present surgical plans for hospital, ID evaluated given no positive cultures yet no new infectious source identified it was recommended to continue his Bactrim that he was already on and a monitor and if he had a fever to panculture and start antibiotics. Ultimately patient got a bed at [facility] in the evening of , patient transferred to [facility] Medical Records Data Medical Nutrition Assessment Dietitian: Malnutrition Criteria Met Start: 01/19/25 13:34 Freq: Status: Active Protocol: Document 01/19/25 13:34 SB (Rec: 01/19/25 13:34 SB [id number]) Nutrition Malnutrition Evidence of Yes Malnutrition Exists Malnutrition (severe Acute Illness/Injury ): Evidenced By Suboptimal Energy Intake (Severe),Physical Changes ( Severe) Clinical Problem Acute Disease or Injury Related Malnutrition Etiology severe malnutrition related to inadequate oral/energy intake Signs/Symptoms as evidenced by PO meeting <50% of estimated nutrition needs > 1 month with severe muscle and fat wasting on clavicle, temples, and orbitals. Status Active Problem Recommendation Dietitian Recommend advanced diet as tolerated to transitional Recommendations/ with goal of regular. Changes Recommend vanilla milkshake with lunch and dinner as diet is advanced. Will monitor weight trends. Weight / BMI Weight Weight: 44.1 kg Body Mass Index (BMI) 15.7 ABG / Lab / Microbiology Data 01/19/25 17:35 01/19/25 17:15 Laboratory: Laboratory Results - last 24 hr 01/18/25 11:41: Crossmatch See Detail 01/18/25 11:41: Crossmatch See Detail 01/18/25 20:29: Diff Path Review Reviewed 01/19/25 17:15: PT 17.1 H, INR 1.4, APTT 40.9 H, Fibrinogen 318, D-Dimer Quant (PE/DVT) 3.01 H*, Sodium 137, Potassium 4.6, Chloride 110 H, Carbon Dioxide 18.6 L, Anion Gap 8, BUN 44 H, Creatinine 1.36 H, Estim Creat Clear Calc 36.03 L, Est GFR (MDRD) Non-Af 60, BUN/Creatinine Ratio 32.4 H, Glucose 102 H, Calcium 7.9, Total Bilirubin 0.31, Direct Bilirubin 0.22, AST 20, ALT 7, Alkaline Phosphatase 105, Total Protein 4.8 L, Albumin 2.0 L, Globulin 2.9 01/19/25 17:35: WBC 1.1 L*, RBC 2.80 L, Hgb 7.9 L, Hct 24.7 L, MCV 88.2, MCH 28.2, MCHC 32.0, RDW Std Deviation 57.8 H, RDW Coeff of Beatrice 17.8 H, Plt Count 18 L*, MPV TNP, Neut % (Auto) Not Reportable, Absolute Neuts (auto) 0.8 L, Absolute Lymphs (auto) 0.18 L, Total Counted 50, Neutrophils % (Manual) 48, Band Neutrophils % 20 H, Lymphocytes % (Manual) 16 L, Monocytes % (Manual) 10, Basophils % (Manual) 2 H, Metamyelocytes % 2 H, Myelocytes % 2 H, Polychromasia 1+, Anisocytosis 2+, Nabila Cells 1+, Acanthocytes (Spur) 1+, Schistocytes 1+ Microbiology: Microbiology 01/19/25 02:25 Stool Enteric Bacteriology - Final 01/19/25 02:25 Stool Clostridioides difficile (PCR) - Final D/C Instructions DC O2, CPAP, BIPAP Needs Home O2 Discharge instructions: No Meaningful Use Info Meaningful Use Meaningful Use Diagnoses (Choose all that apply): None applicable Discharge Plan Admission Admit Date/Time: 01/19/25 00:12 Attending Provider: Sri Sharp Primary Care Provider: Sage Taylor Consulting Providers: Ashwin Guardado; Crys Mcdaniel; Brant Perez Discharge Orders/Prescriptions Prescriptions: No Action loperamide [Anti-Diarrheal (loperamide)] 2 mg capsule 2 mg PO Q6H PRN (Reason: loose stool) aspirin 81 mg tablet,chewable 1 tab PO QDAY tacrolimus 1 mg capsule 3 mg PO Q12H calcium carbonate-vitamin D3 600 mg-10 mcg (400 unit) tablet 1 tab PO QDAY entecavir 0.5 mg tablet 0.5 mg PO QODAY sulfamethoxazole-trimethoprim 800-160 mg tablet 1 tab PO MOWEFR lansoprazole 30 mg capsule,delayed release(DR/EC) 30 mg PO DAILY ursodiol 300 mg capsule 600 mg PO Q12H alteplase 2 mg recon soln 2 mg intra-catheter BID PRN (Reason: catheter occlusion) Rx Instructions: leave dose in a single catheter lumen for 0.5 - 2 hrs micafungin [Mycamine] 100 mg recon soln 150 mg IV DAILY Rx Instructions: administer over 60 mins prednisone 10 mg tablet 10 mg PO DAILY tamsulosin [Flomax] 0.4 mg capsule 0.4 mg PO DAILY ondansetron 4 mg tablet,disintegrating 4 mg PO Q6H PRN (Reason: nausea and vomiting) Qty: 20 0RF Referrals / Follow Up: Sage Taylor DO [Primary Care Provider, Family Practice] Disposition Disposition (needs filled in before D/C Order can be placed): Acute [facility]
--- NOTE | 2025-01-19 19:07 | NURSING ---
called report to [facility]. pt transferred to [facility]. at bedside.
[2025-01-19 19:22] LABS: Fibrinogen 318 mg/dl (203-444)
[2025-01-19 21:22] LABS: Neutrophil-Band 20 % (0-5); Neutrophil-Segmented 48 % (47-70); Total Cells Counted 50 (MANUAL DIFF)
[2025-01-19 21:41] LABS: Anisocytosis 2+; Polychromasia 1+
[2025-01-19 21:43] LABS: Acanthocytes 1+; Schistocytes 1+
[2025-01-19 21:45] LABS: Burr Cells 1+
== END 2025-01-19 19:16 | disposition short-term general hospital (02) | DRG 391 ==
LOC: ED 19:08 → MS3 01-19 00:22
PROVIDERS: Emergency Medicine; Student in an Organized Health Care Education/Training Program; Admitting Provider Internal Medicine; Emergency Provider Surgery; PCP Family Medicine; Visit Provider Internal Medicine
DX: K52.9 Noninfective gastroenteritis and colitis, unspecified (principal); E43 Unspecified severe protein-calorie malnutrition; D61.818 Other pancytopenia; D62 Acute posthemorrhagic anemia; Z94.4 Liver transplant status; K56.7 Ileus, unspecified; N17.9 Acute kidney failure, unspecified; Z68.1 Body mass index [BMI] 19.9 or less, adult; D50.9 Iron deficiency anemia, unspecified; Z93.2 Ileostomy status; K21.9 Gastro-esophageal reflux disease without esophagitis; D69.6 Thrombocytopenia, unspecified; Z79.52 Long term (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 of systemic steroids; Z85.038 Personal history of other malignant neoplasm of large intestine; Z79.60 Long term (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 of unspecified immunomodulators and immunosuppressants; Z79.899 Other long term (current) drug therapy; Z90.49 Acquired absence of other specified parts of digestive tract
CPT/HCPCS: 36415; 36592; 74177; 80048; 80053; 80076; 81001; 83605; 83690; 83735; 84100; 84443; 85014; 85018; 85025; 85379; 85384; 85610; 85730; 86850; 86900; 86901; 87252; 87254; 87493; 87496; 87506; 94668; 97802; 99252; 99285; P9016; Q9967; A4216; G0463; J2405

== ENCOUNTER 2025-03-01 09:47 | Outpatient (RCR) | payer OTHER, SELFPAY ==
[2025-03-01 10:32] LABS: Hematocrit 29.2 % (40-54); Hemoglobin 8.9 g/dL (13.0-16.5); Immature Granulocytes Count 0.320 X10^3/uL (0.0-0.0); Mean Corp Hgb Conc 30.5 g/dL (32-36); Mean Corpuscular Volume 101.0 fL (80-94); Mean Platelet Vol. 11.4 fl (6.2-12.0); NRBC Flagged by Analyzer 0 % (0-5); POSITIVE MORPHOLOGY YES; Platelet Count 358 K/mm3 (150-450); RBC Distribution Width CV 20.8 % (11.6-14.6); RBC Distribution Width SD 75.2 fl (35.1-43.9); Red Blood Count 2.89 M/mm3 (4.6-6.2); White Blood Count 12.3 K/mm3 (4.4-11.0)
[2025-03-01 10:34] LABS: Differential Indicated SCAN CRITERIA MET
[2025-03-01 10:57] LABS: Anisocytosis 1+
[2025-03-01 11:17] LABS: AST(SGOT) 20 U/L (<=37); Alanine Aminotransfer ALT/SGPT 20 U/L (<=46); Albumin, Serum 3.2 g/dL (3.4-4.8); Alkaline Phosphatase 323 U/L (40-129); Anion Gap 7 (7-18); BUN 32 mg/dL (4-19); BUN/Creat Ratio 25.9 RATIO (10-20); Bilirubin, Direct 0.48 mg/dL (0.00-0.30); Calcium,Total 8.8 mg/dL (7.6-11.0); Carbon Dioxide 26.4 mmol/L (20.0-29.0); Chloride 105 mmol/L (96-106); Glucose 129 mg/dL (70-99); Magnesium 1.6 mg/dL (1.5-2.2); Potassium 4.5 mmol/L (3.5-5.1)
[2025-03-03 18:08] LABS: GGTP 57 IU/L (0-65)
== END 2025-03-01 18:00 | disposition home or self-care (01) ==
LOC: LAB 09:47
PROVIDERS: PCP Family Medicine
DX: Z94.4 Liver transplant status; Z48.298 Encounter for aftercare following other organ transplant; Z79.899 Other long term (current) drug therapy; Z51.81 Encounter for therapeutic drug level monitoring
CPT/HCPCS: 36415; 80048; 80197; 82040; 82247; 82248; 82977; 83735; 84075; 84100; 84450; 84460; 85025; 87497